=== PATIENT | female | born 1960 | race Caucasian/White ===

== ENCOUNTER 2022-05-14 17:27 | Observation (INO) ==
--- NOTE | 2022-05-14 18:11 | XRay Report ---
SINGLE VIEW CHEST CLINICAL HISTORY: Dyspnea FINDINGS: An AP, portable, upright chest radiograph is compared to study dated 05/10/2022. The heart i s top normal for projection. Chronic interstitial thickening similar to previous. The lungs and pleur al spaces are clear noting bibasilar scarring/atelectasis. No pneumothorax is seen. The skeletal stru ctures are osteopenic. The bony thorax is grossly intact. IMPRESSION: No active disease in the chest. ACT 112: Negative or not required by law. Electronically signed by: Cayetano Espinoza M.D. 05/14/2022 6:10 PM
[2022-05-14 19:51] LABS: Basophils # (auto) 0.08 K/uL (0-0.2); Basophils % (auto) 0.5 %; Eosinophils % (auto) 2.1 %; Hematocrit (blood only) 44.9 % (34.1-44.9); Hemoglobin 14.7 g/dl (12.0-16.0); Immature Granulocytes # (auto) 0.04 K/uL (0.00-0.02); Immature Granulocytes % (auto) 0.3 %; Lymphocytes # (auto) 3.32 K/uL (1.2-3.4); Lymphocytes % (auto) 22.8 %; Mean Corpuscular Hemoglobin 26.7 pg (25.0-34.0); Mean Corpuscular Hgb Conc 32.7 g/dL (32.0-36.0); Mean Corpuscular Volume 81.5 fL (80.0-100.0); Mean Platelet Volume 9.7 fL (9.4-12.3); Monocytes # (auto) 0.72 K/uL (0.24-0.82); Monocytes % (auto) 4.9 %; Neutrophils # (auto) 10.12 K/uL (1.4-6.5); Neutrophils % (auto) 69.4 %; Platelet Count 340 K/uL (130-400); RDW Coefficient of Variation 14.3 % (11.5-14.5); RDW Standard Deviation 41.5 fL (36.4-46.3); Red Blood Count 5.51 M/uL (3.93-5.22); White Blood Count 14.58 K/ul (4.8-10.8)
[2022-05-14 20:44] LABS: Influenza A virus by PCR Negative (Neg); Influenza B virus by PCR Negative (Neg); RSV by PCR Negative (Neg); SARS CoV2 RNA(COVID-19) Ceph NEGATIVE (Negative)
[2022-05-14 20:54] LABS: Alanine Aminotransferase 17 U/L (7-52); Albumin Globulin Ratio 1.3 (0.9-2); Albumin Level 4.3 gm/dl (3.4-5.0); Alkaline Phosphatase 94 U/L (34-104); Anion Gap 8 (3-11); BUN Creatinine Ratio 26.6 (10-20); Bilirubin,Total 0.4 mg/dl (0.2-1.0); Blood Urea Nitrogen 17 mg/dl (6-23); Carbon Dioxide 28 mmol/L (21-32); Chloride 101 mmol/L (98-107); Est GFR (African American) 111.6 ml/min; Est GFR (Non-African American) 96.3 ml/min; Globulin 3.3 gm/dl (2.5-4.0); Glucose 144 mg/dl (70-99(Fasting)); Magnesium 1.8 mg/dl (1.7-2.4); Sodium 137 mmol/L (136-145); Total Protein 7.6 gm/dl (6.0-8.3)
[2022-05-14] MEDS ORDERED: predniSONE 50 MG TAB PO STA (21:32)
[2022-05-14] MEDS ORDERED: LORazepam 1 MG TAB SL STA (21:32)
[2022-05-14] MEDS: ALBUT/IPRATROP 3MG/0.5MG NEB 3 ML VIAL NEB ONE ×2 (21:37→21:45)
[2022-05-14 21:42] LABS: Troponin I High Sensitivity 7.7 pg/ml (0-14)
[2022-05-14] MEDS: IPRATROPIUM BROMIDE NEB SOLN 0.02% 2.5 ML VIAL INH SCH (21:55)
[2022-05-14] MEDS: LEVALBUTEROL 1.25MG/0.5ML NEB INH SCH (21:55)
[2022-05-14 22:07] LABS: Partial Thromboplastin Time 27.1 Seconds (21.0-31.0); Prothrombin Time 10.9 Seconds (9.0-12.0)
--- NOTE | 2022-05-14 22:09 | Emergency Department Note ---
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 Time Seen by Provider: 05/14/22 21:14 History of Present Illness Provider Complaint: shortness of breath and cough Onset (ago): day(s) (5) Severity: severe Consistency/Duration: + progressively worsening Relieved By: + nothing Exacerbated By: + exertion and + coughing Known history of: COPD, asthma and PE (on lovenox) Associated symptoms: + cough, + wheezing, + sputum production and + chest congestion; no chest pain, no orthopnea or no hemoptysis Related Data Home oxygen amount: none Home Medications Medication Instructions Recorded Confirmed Type alprazolam 0.5 mg tablet (Xanax) 0.5 mg PO BID PRN anxiety #15 tabs 05/02/22 05/14/22 Rx buprenorphine 8 mg-naloxone 2 mg 1 film sublingual BID 05/14/22 05/14/22 History sublingual film buspirone 5 mg tablet 7.5 mg PO TID 05/14/22 05/14/22 History enoxaparin 150 mg/mL subcutaneous 150 mg subcut DAILY 05/14/22 05/14/22 History syringe (Lovenox) fluticasone fur. 200 mcg-umeclid 1 inh inhalation DAILY 05/14/22 05/14/22 History 62.5 mcg-vilant 25 mcg inhalat.powder (Trelegy Ellipta) furosemide 20 mg tablet 40 mg PO DAILY 05/14/22 05/14/22 History insulin aspart U-100 100 unit/mL 0 sliding scale dose subcut 05/14/22 05/14/22 History (3 mL) subcutaneous pen (Novolog DIRECTED FlexPen U-100 Insulin aspart) insulin glargine 100 unit/mL (3 40 unit subcut DIRECTED 05/14/22 05/14/22 History mL) subcutaneous pen (Lantus Solostar U-100 Insulin) ipratropium bromide 17 2 puff inhalation DIRECTED 05/14/22 05/14/22 History mcg/actuation HFA aerosol inhaler (Atrovent HFA) levalbuterol tartrate 45 2 inh inhalation Q6H PRN Shortness 05/14/22 05/14/22 History mcg/actuation aerosol inhaler Of Breath (Xopenex HFA) nystatin 100,000 unit/gram topical 1 applic topical BID PRN UNDER 05/14/22 05/14/22 History powder BREASTS NEEDED. nystatin 100,000 unit/mL oral 5 ml PO DIRECTED 05/14/22 05/14/22 History suspension ondansetron HCl 4 mg tablet 4 mg PO Q8H PRN NAUSEA/VOMITING 05/14/22 05/14/22 History quetiapine 200 mg tablet 200 mg PO HS 05/14/22 05/14/22 History valsartan 160 mg tablet 160 mg PO DAILY 05/14/22 05/14/22 History Allergies Allergy/AdvReac Type Severity Reaction Status Date / Time codeine Allergy Severe Anaphylaxis Verified 05/14/22 22:35 Iodinated Contrast Media Allergy Severe Anaphylaxis Verified 05/14/22 22:35 shellfish derived Allergy Severe Anaphylaxis Verified 05/14/22 22:35 tramadol Allergy Intermediate ITCHINESS Verified 05/14/22 22:35 iohexol Allergy Unknown CAN'T Verified 05/14/22 22:35 REMEMBER diphenhydramine AdvReac Severe Anxiety Verified 05/14/22 22:35 [From Benadryl] montelukast [From Singulair] AdvReac Intermediate Anxiety Verified 05/14/22 22:35 promethazine AdvReac Intermediate Anxiety Verified 05/14/22 22:35 Past Med/Surg History Medical History Asthma COPD (chronic obstructive pulmonary disease) Diabetes Multiple myeloma No pertinent family history Pulmonary embolism Tobacco use Surgical History No pertinent past surgical history Social History Smoking Status: Current every day smoker Tobacco Type: Cigarettes Preferred Language: Kinyarwanda Feels Safe at Home: Yes Physical Exam Vital Signs: Vital Signs - 24 hr 05/14/22 17:33 05/14/22 21:13 05/14/22 21:13 Temperature 36.9 C Temperature Source Temporal Artery Sc an Pulse Rate 96 H Pulse Rate [Apical ] 90 Pulse Rate from Sp O2 Sensor Respiratory Rate 19 18 Respiratory Effort / Characteristics Non-Labored Spontaneous Short of Breath Respiratory Depth Normal Shallow Respiratory Patter n Regular Blood Pressure 199/106 H Blood Pressure [Le ft Arm] 198/114 H Blood Pressure Viktoria n 137 Blood Pressure Viktoria n [Left Arm] 142 Pulse Oximetry 96 98 100 Oxygen Delivery Me thod Room Air Room Air Room Air Sepsis Recent Feve r Within 48 Hours No Sepsis New/Unexpla ined Change in Men robyn Status N/A Sepsis Action Take n by Nursing No Action Required 05/14/22 22:17 05/14/22 21:30 05/14/22 22:00 Temperature Temperature Source Pulse Rate 98 H 84 Pulse Rate [Apical ] 93 H Pulse Rate from Sp O2 Sensor 95 H Respiratory Rate 18 24 19 Respiratory Effort / Characteristics Non-Labored Sponta neous Respiratory Depth Normal Respiratory Patter n Blood Pressure Blood Pressure [Le ft Arm] 181/101 H Blood Pressure Viktoria n Blood Pressure Viktoria n [Left Arm] 127 Pulse Oximetry 94 98 Oxygen Delivery Me thod Room Air Sepsis Recent Feve r Within 48 Hours Sepsis New/Unexpla ined Change in Men robyn Status Sepsis Action Take n by Nursing Physical Exam: Physical Exam HENT: Exam performed. -Head: Normocephalic and atraumatic. -Mouth/Throat: The oropharynx is clear and moist. No trismus in the jaw. No dental abscesses or uvula swelling. No oropharyngeal exudate or tonsillar abscesses. EYES: Conjunctivae and EOM are normal. Right eye exhibits no discharge. Left eye exhibits no discharge. No scleral icterus. NECK: Normal range of motion. Neck supple. No JVD present. CV: Normal rate, regular rhythm, normal heart sounds and intact distal pulses. There is no peripheral edema. Palpable radial pulses bue. PULM/CHEST: Expiratory wheezes bilaterally. ABD: The abdomen is soft.There is no tenderness. There is no rebound, no guarding, NEURO: Motor and sensation grossly intact. SKIN: Skin is warm and dry. She is not diaphoretic. PSYCH: She has a normal mood and affect. Behavior is normal. Judgment and thought content normal. Course Course 2113: The patient was evaluated in room B2. A complete history and physical exam was performed Cardiac monitoring: An order was placed for continuous cardiac monitoring. The monitor shows a rate of 90 with sinus rhythm External medical records reviewed this is the patient's third visit to the emergency department in the last 12 days for similar symptoms. 2237: Vital signs stable. Labs and imaging within normal limits, there is a leukocytosis of 14 however the patient has been on steroids. Status post Xopenex and Atrovent treatments patient's breathing has improved but she is still having wheezing. Given that this is the patient's third visit to the emergency department the last month for similar symptoms the patient will be admitted for COPD exacerbation. Administered Medications Ipratropium [place] (Ipratropium [place] Neb Soln 0.02% 2.5 Ml Vial) 0.5 mg INH UD FLETCHER Stop: 06/13/22 21:44 Last Admin: 05/14/22 21:55 Dose: 0.5 mg Documented By: NICHOL Levalbuterol HCl (Levalbuterol 1.25mg/0.5ml Neb) 1.25 mg INH UD FLETCHER Stop: 06/13/22 21:44 Last Admin: 05/14/22 21:55 Dose: 1.25 mg Documented By: NICHOL Discontinued Medications Albuterol (Albut/Ipratrop 3mg/0.5mg Neb 3 Ml Vial) 12 ml NEB ONE ONE; Protocol Stop: 05/14/22 21:33 Last Admin: 05/14/22 21:45 Dose: Not Given Documented By: NICHOL Levalbuterol HCl (Levalbuterol Hcl 0.63 Mg/3 Ml Neb) 0.63 mg NEB NOW STA; Protocol Stop: 05/14/22 22:37 Last Admin: 05/14/22 22:39 Dose: 0.63 mg Documented By: NICHOL Lorazepam (Lorazepam 1 Mg Tab) 1 mg SL NOW STA Stop: 05/14/22 21:33 Last Admin: 05/14/22 21:37 Dose: 1 mg Documented By: NICHOL Prednisone (Prednisone 50 Mg Tab) 50 mg PO NOW STA Stop: 05/14/22 21:33 Last Admin: 05/14/22 21:37 Dose: 50 mg Documented By: NICHOL Medical Decision Making Laboratory Data Attestation: I reviewed the patient's lab results. 05/14/22 19:24 05/14/22 19:24 Lab Results 05/14/22 05/14/22 05/14/22 Range/Units 19:21 19:24 19:24 WBC 14.58 H (4.8-10.8) K/ul RBC 5.51 H (3.93-5.22) M/uL Hgb 14.7 (12.0-16.0) g/dl Hct 44.9 (34.1-44.9) % MCV 81.5 (80.0-100.0) fL MCH 26.7 (25.0-34.0) pg MCHC 32.7 (32.0-36.0) g/dL RDW Std Deviation 41.5 (36.4-46.3) fL RDW Coeff of Malick 14.3 (11.5-14.5) % Plt Count 340 (130-400) K/uL MPV 9.7 (9.4-12.3) fL Immature Gran % (Auto) 0.3 % Neut % (Auto) 69.4 % Lymph % (Auto) 22.8 % Wilkinson % (Auto) 4.9 % Eos % (Auto) 2.1 % Baso % (Auto) 0.5 % Neut # (Auto) 10.12 H (1.4-6.5) K/uL Lymph # (Auto) 3.32 (1.2-3.4) K/uL Wilkinson # (Auto) 0.72 (0.24-0.82) K/uL Eos # (Auto) 0.30 (0-0.50) K/uL Baso # (Auto) 0.08 (0-0.2) K/uL Immature Gran # (Auto) 0.04 H (0.00-0.02) K/uL PT Cancelled INR Cancelled APTT Cancelled PTT Ratio Cancelled Sodium (136-145) mmol/L Potassium Chloride (98-107) mmol/L Carbon Dioxide (21-32) mmol/L Anion Gap (3-11) BUN (6-23) mg/dl Creatinine (0.6-1.2) mg/dl Est Cr Clr Drug Dosing Est GFR ( Amer) ml/min Est GFR (Non-Af Amer) ml/min BUN/Creatinine Ratio (10-20) Glucose (70-99(Fasting)) mg/dl Calcium (8.5-10.1) mg/dl Magnesium (1.7-2.4) mg/dl Total Bilirubin (0.2-1.0) mg/dl AST ALT (7-52) U/L Alkaline Phosphatase (34-104) U/L Troponin I High Sens (0-14) pg/ml Total Protein (6.0-8.3) gm/dl Albumin (3.4-5.0) gm/dl Globulin (2.5-4.0) gm/dl Albumin/Globulin Ratio (0.9-2) SARS-CoV-2 (PCR) NEGATIVE (Negative) Influenza Type A (PCR) Negative (Neg) Influenza Type B (PCR) Negative (Neg) RSV (RT-PCR) Negative (Neg) 05/14/22 05/14/22 05/14/22 Range/Units 19:24 21:45 21:45 WBC (4.8-10.8) K/ul RBC (3.93-5.22) M/uL Hgb (12.0-16.0) g/dl Hct (34.1-44.9) % MCV (80.0-100.0) fL MCH (25.0-34.0) pg MCHC (32.0-36.0) g/dL RDW Std Deviation (36.4-46.3) fL RDW Coeff of Malick (11.5-14.5) % Plt Count (130-400) K/uL MPV (9.4-12.3) fL Immature Gran % (Auto) % Neut % (Auto) % Lymph % (Auto) % Wilkinson % (Auto) % Eos % (Auto) % Baso % (Auto) % Neut # (Auto) (1.4-6.5) K/uL Lymph # (Auto) (1.2-3.4) K/uL Wilkinson # (Auto) (0.24-0.82) K/uL Eos # (Auto) (0-0.50) K/uL Baso # (Auto) (0-0.2) K/uL Immature Gran # (Auto) (0.00-0.02) K/uL PT 10.9 INR 1.0 APTT 27.1 PTT Ratio 1.0 Sodium 137 (136-145) mmol/L Potassium TNP 3.8 Chloride 101 (98-107) mmol/L Carbon Dioxide 28 (21-32) mmol/L Anion Gap 8 (3-11) BUN 17 (6-23) mg/dl Creatinine 0.64 (0.6-1.2) mg/dl Est Cr Clr Drug Dosing Not Reportable Est GFR ( Amer) 111.6 ml/min Est GFR (Non-Af Amer) 96.3 ml/min BUN/Creatinine Ratio 26.6 H (10-20) Glucose 144 H (70-99(Fasting)) mg/dl Calcium 9.0 (8.5-10.1) mg/dl Magnesium 1.8 (1.7-2.4) mg/dl Total Bilirubin 0.4 (0.2-1.0) mg/dl AST TNP 11 L ALT 17 (7-52) U/L Alkaline Phosphatase 94 (34-104) U/L Troponin I High Sens 7.7 (0-14) pg/ml Total Protein 7.6 (6.0-8.3) gm/dl Albumin 4.3 (3.4-5.0) gm/dl Globulin 3.3 (2.5-4.0) gm/dl Albumin/Globulin Ratio 1.3 (0.9-2) SARS-CoV-2 (PCR) (Negative) Influenza Type A (PCR) (Neg) Influenza Type B (PCR) (Neg) RSV (RT-PCR) (Neg) Imaging Data Radiologist's Impression: Chest X-Ray 05/14/22 17:37 SINGLE VIEW CHEST CLINICAL HISTORY: Dyspnea FINDINGS: An AP, portable, upright chest radiograph is compared to study dated 05/10/2022. The heart is top normal for projection. Chronic interstitial thickening similar to previous. The lungs and pleural spaces are clear noting bibasilar scarring/atelectasis. No pneumothorax is seen. The skeletal structures are osteopenic. The bony thorax is grossly intact. IMPRESSION: No active disease in the chest. ACT 112: Negative or not required by law. Electronically signed by: Cayetano Espinoza M.D. 05/14/2022 6:10 PM ECG Data Attestation: I personally reviewed and interpreted this ECG as follows: Interpretation: Sinus rhythm with rate of 84. NV 160 QRS [address] elevation or ST depression. [facility] Narrative 2114: The patient was evaluated in room B2. A complete history and physical exam was performed Cardiac monitoring: An order was placed for continuous cardiac monitoring. The monitor shows a rate of 90 with sinus rhythm External medical records reviewed this is the patient's third visit to the emergency department in the last 12 days for similar symptoms. 2238: Vital signs stable. Labs and imaging within normal limits, there is a leukocytosis of 14 however the patient has been on steroids. Status post Xopenex and Atrovent treatments patient's breathing has improved but she is still having wheezing. Given that this is the patient's third visit to the emergency department the last month for similar symptoms the patient will be admitted for COPD exacerbation. 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 ondansetron HCl [Zofran] 4 mg Tablet 4 mg PO Q8H PRN (Reason: NAUSEA/VOMITING) quetiapine 200 mg tablet 200 mg PO HS enoxaparin [Lovenox] 150 mg/mL Syringe 150 mg SUBCUT DAILY furosemide 20 mg tablet 40 mg PO DAILY nystatin 100,000 unit/gram Powder 1 applic TOPICAL BID PRN (Reason: UNDER BREASTS NEEDED.) valsartan 160 mg tablet 160 mg PO DAILY insulin aspart U-100 [Novolog FlexPen U-100 Insulin] 100 unit/mL (3 mL) insulin pen 0 sliding scale dose SUBCUT DIRECTED levalbuterol tartrate [Xopenex HFA] 45 mcg/actuation Hfa Aerosol Inhaler 2 inh INHALATION Q6H PRN (Reason: Shortness Of Breath) Atrovent HFA 17 mcg/actuation Hfa Aerosol Inhaler 2 puff INHALATION DIRECTED insulin glargine [Lantus Solostar U-100 Insulin] 100 unit/mL (3 mL) insulin pen 40 unit SUBCUT DIRECTED Rx Instructions: CAN SLIDE SCALE IF NOT EATING buprenorphine-naloxone 8-2 mg film 1 film sublingual BID Trelegy Ellipta 200-62.5-25 mcg blister with device 1 inh INHALATION DAILY Referrals Referrals: Celine Romano CRNP [Primary Care Provider] -
[2022-05-14 22:18] LABS: Potassium 3.8 mmol/L (3.5-5.1)
[2022-05-14] MEDS ORDERED: LEVALBUTEROL HCL 0.63 MG/3 ML NEB NEB STA (22:36)
--- NOTE | 2022-05-14 23:26 | History & Physical Report ---
Date of Service May 14, 2022 Assessment & Plan (1) Acute exacerbation of chronic obstructive airways disease: Plan: 62-year-old woman with history of asthma, COPD, type 2 diabetes, and anxiety, who presents to the hospital for the third time this week (05/02/2022, 05/10/2022) with acute shortness of breath. Now stable, admitted for management of COPD exacerbation. COPD exacerbation -COPD managed on Lasix, Atrovent HFA, and Trelegy Ellipta. Patient also has asthma, managed on as needed Xopenex. Patient on 2L oxygen at nighttime. Current everyday smoker. May benefit from reassessment of oxygen requirement. -Suspect symptoms, recurrences secondary to cigarette smoking. -S/P prednisone 50 mg p.o., DuoNeb nebulizer in the ED. -Elevated white count, though unclear if this is of infectious etiology. Patient also received a 10-day course of twice daily doxycycline after the first visit to the ER on 05/02/2022, which she completed. -Deferred starting azithromycin, given recent completion of 10-day course of doxycycline. Procalcitonin ordered to rule out infectious etiology. Will leave to day team to reassess. * Admit to MedSurg with telemetry * Pulmicort in lieu of prednisone, given the effect it has on her blood sugar. * Continue home furosemide, Trelegy Ellipta, Xopenex, and Atrovent * AM labs pending: BMP, CBC, procalcitonin DM2 -Patient takes Lantus 40 units every morning, SSI NovoLog. Has a Dexcom * SQ NovoLog ordered per unit protocol. Goal 100-140. CF = 25. Carb ratio = 10 g/unit * Valsartan 160 mg daily Anxiety -Managed on buspirone 3 times daily quetiapine, which she takes nightly. Patient was on Xanax for 3-week stretch last year but has not used it since. Her frequent hospital visits have her concerned about a new panic attack. -She received Ativan in the ED prior to admission but she feels it did not help. She prefers Xanax. * Seroquel 200 mg nightly * Buspirone 7.5 mg 3 times daily * Xanax 0.5 mg twice daily as needed History of PE * Lovenox 150 mg SQ daily Code: Full code Dispo: Med-Surg telemetry FEN/GI: Heart healthy DVT Prophylaxis: Lovenox 150 mg SQ daily PT/OT: No Consults: (2) Asthma exacerbation in COPD: (3) Anxiety: History of Present Illness Primary Care Provider: MARGARET Cabello Janae is a 62-year-old woman with a history of asthma, COPD, pulmonary embolism (on Lovenox), and type II diabetes. She presents today for progressively worsening shortness of breath and cough. She describes the chest discomfort as "feeling like sandpaper stuck in the wall of [her] chest." Cough is also exacerbated by exertion, with no alleviating factors. ROS + wheeze, increase sputum production, chest congestion. She denies chest pain, orthopnea, or hemoptysis. This is her third admission in the last week for COPD exacerbation. She is not on oxygen at home. In the ED, vitals were notable for BP of 199/106. She was saturating 96% on room air. Labs notable for WBC of 14.58, and glucose of 144. Initial serology (COVID-19, influenza A/B, RSV) negative. She received a dose of DuoNeb, oral prednisone 50 mg, and Xopenex. On admission, she reports headache that started after taking the prednisone. She denies any exposure to pets, dizziness, nausea and vomiting. She insists she is adherent to all of her medications. She is from [place], [place]. She is currently enrolled in the legal dispute with her , and has been only recently staying with her sister here in town. Allergies Allergy/AdvReac Type Severity Reaction Status Date / Time codeine Allergy Severe Anaphylaxis Verified 05/14/22 22:35 Iodinated Contrast Media Allergy Severe Anaphylaxis Verified 05/14/22 22:35 shellfish derived Allergy Severe Anaphylaxis Verified 05/14/22 22:35 tramadol Allergy Intermediate ITCHINESS Verified 05/14/22 22:35 iohexol Allergy Unknown CAN'T Verified 05/14/22 22:35 REMEMBER diphenhydramine AdvReac Severe Anxiety Verified 05/14/22 22:35 [From Benadryl] montelukast [From Singulair] AdvReac Intermediate Anxiety Verified 05/14/22 22:35 promethazine AdvReac Intermediate Anxiety Verified 05/14/22 22:35 Home Medications Medication Instructions Recorded Confirmed Type alprazolam 0.5 mg tablet (Xanax) 0.5 mg PO BID PRN anxiety #15 tabs 05/02/22 05/14/22 Rx buprenorphine 8 mg-naloxone 2 mg 1 film sublingual BID 05/14/22 05/14/22 History sublingual film buspirone 5 mg tablet 7.5 mg PO TID 05/14/22 05/14/22 History enoxaparin 150 mg/mL subcutaneous 150 mg subcut DAILY 05/14/22 05/14/22 History syringe (Lovenox) fluticasone fur. 200 mcg-umeclid 1 inh inhalation DAILY 05/14/22 05/14/22 History 62.5 mcg-vilant 25 mcg inhalat.powder (Trelegy Ellipta) furosemide 20 mg tablet 40 mg PO DAILY 05/14/22 05/14/22 History insulin aspart U-100 100 unit/mL 0 sliding scale dose subcut 05/14/22 05/14/22 History (3 mL) subcutaneous pen (Novolog DIRECTED FlexPen U-100 Insulin aspart) insulin glargine 100 unit/mL (3 40 unit subcut DIRECTED 05/14/22 05/14/22 History mL) subcutaneous pen (Lantus Solostar U-100 Insulin) ipratropium bromide 17 2 puff inhalation DIRECTED 05/14/22 05/14/22 History mcg/actuation HFA aerosol inhaler (Atrovent HFA) levalbuterol tartrate 45 2 inh inhalation Q6H PRN Shortness 05/14/22 05/14/22 History mcg/actuation aerosol inhaler Of Breath (Xopenex HFA) nystatin 100,000 unit/gram topical 1 applic topical BID PRN UNDER 05/14/22 05/14/22 History powder BREASTS NEEDED. nystatin 100,000 unit/mL oral 5 ml PO DIRECTED 05/14/22 05/14/22 History suspension ondansetron HCl 4 mg tablet 4 mg PO Q8H PRN NAUSEA/VOMITING 05/14/22 05/14/22 History quetiapine 200 mg tablet 200 mg PO HS 05/14/22 05/14/22 History valsartan 160 mg tablet 160 mg PO DAILY 05/14/22 05/14/22 History Past Med/Surg History Medical History Asthma COPD (chronic obstructive pulmonary disease) Diabetes Multiple myeloma No pertinent family history Pulmonary embolism Tobacco use Surgical History No pertinent past surgical history Social History Smoking Status: Current every day smoker Tobacco Type: Cigarettes Cigarettes Per Day: 1-2/day; Do You Dip or Chew Tobacco: No; Hx Alcohol Use: No Hx Substance Use: No Preferred Language: Bulgarian Communication Ability: Effective Teacher Tutor Required: No Beliefs That Will Affect Care: None Current Living Situation: Other Current Living Situation Comment: with sister Feels Safe at Home: Yes Safety Concerns: Feels Safe At This Time Assistive Devices: None Review of Systems Review of Systems: All systems reviewed & are unremarkable except as noted in HPI & below Physical Exam Physical Exam: General: No acute distress HEENT: PERRLA. Normal conjunctiva, anicteric sclera. Oropharynx normal. Respiratory: Wheeze heard across upper and lower lung soriano. No crackles, or rales Cardiovascular: Tachycardic. Regular rhythm. No murmurs, gallops, or rubs. No edema. GI: Soft abdomen with normal bowel sounds heard on auscultation. Nontender x4 quadrants Neuro: Alert and oriented x3. Results & Data Results & Data ([facility]) Vital Signs (Past 12 Hours) Vital Signs Temp Pulse Pulse Resp BP BP Pulse Ox 05/14/22 22:00 84 19 05/14/22 21:30 98 H 24 98 05/14/22 22:17 93 H 18 181/101 H 94 05/14/22 21:13 90 18 198/114 H 100 05/14/22 21:13 98 05/14/22 17:33 36.9 C 96 H 19 199/106 H 96 O2 Del Method 05/14/22 22:00 05/14/22 21:30 05/14/22 22:17 Room Air 05/14/22 21:13 Room Air 05/14/22 21:13 Room Air 05/14/22 17:33 Room Air Supervising Physician Co-Signing Physician Notes Attending addendum: I have physically seen this patient, have supervised the medical residents a ctivities, and agree with the H&P unless as otherwise noted. Assessment and Plan: COPD exacerbation- Admit to monitored bed Received the following from the ED: Xopenex/Atrovent nebulizer, Dulucille Sharma razepam 1 mg sublingual, prednisone 50 mg p.o. and Xopenex HFA and Pulmicort Respules 0.5 mg inhaled twice daily Continue Trelegy Ellipta, Xopenex/Atrovent nebulizers Hold any further prednisone due to significantly adversely affecting her blood sugars Diabetes mellitus- Continue Lantus 40 units subcu every morning Placed on Accu-Cheks before meals and at bedtime with NovoLog SSI Hypertension- Continue valsartan-60 mg daily Anxiety- Continue quetiapine, buspirone and Xanax Chronic pain control- Continue Suboxone Remaining orders and notations as noted Resident Activity Tracking Resident Involvement: Resident Care Provided Care Provided: Adult [facility] Medicine
[2022-05-15] MEDS ORDERED: QUEtiapine FUMARATE 200 MG TAB PO STA (00:27)
[2022-05-15] MEDS: ACETAMINOPHEN 325 MG TAB PO PRN ×2 (00:47→09:37)
[2022-05-15] MEDS ORDERED: XOPENEX/ATROVENT 1.25mg/0.5MG NEB COMBO NEB SCH (01:00)
[2022-05-15] MEDS: LEVALBUTEROL 1.25MG/0.5ML NEB INH SCH (01:02)
[2022-05-15] MEDS: IPRATROPIUM BROMIDE NEB SOLN 0.02% 2.5 ML VIAL INH SCH (01:02)
[2022-05-15] MEDS ORDERED: GLUCOSE 10 TAB/TUBE PO PRN (03:21)
[2022-05-15] MEDS ORDERED: ALPRAZolam 0.5 MG TABLET PO PRN (03:21)
[2022-05-15] MEDS ORDERED: IPRATROPIUM BROMIDE HFA INHALER INH PRN (03:21)
[2022-05-15] MEDS ORDERED: GLUCAGON FOR INJ 1 MG VIAL SQ PRN (03:21)
[2022-05-15] MEDS ORDERED: DEXTROSE 50% 50 ML SYRINGE IV PRN (03:21)
[2022-05-15] MEDS ORDERED: CARBOHYDRATES FOR HYPOGLYCEMIA PO PRN (03:21)
[2022-05-15] MEDS ORDERED: GLUCOSE 40% GEL 15 GM TUBE PO PRN (03:21)
[2022-05-15] MEDS ORDERED: LEVALBUTEROL TARTRATE 15 GM HFA.AER.AD INH PRN (03:21)
[2022-05-15] MEDS ORDERED: ONDANSETRON 4 MG OD TAB PO PRN (03:29)
[2022-05-15 04:40] LABS: Basophils # (auto) 0.06 K/uL (0-0.2); Basophils % (auto) 0.4 %; Eosinophils # (auto) 0.01 K/uL (0-0.50); Eosinophils % (auto) 0.1 %; Hematocrit (blood only) 43.7 % (34.1-44.9); Hemoglobin 14.4 g/dl (12.0-16.0); Immature Granulocytes # (auto) 0.07 K/uL (0.00-0.02); Immature Granulocytes % (auto) 0.5 %; Lymphocytes # (auto) 1.62 K/uL (1.2-3.4); Lymphocytes % (auto) 11.3 %; Mean Corpuscular Hemoglobin 26.9 pg (25.0-34.0); Mean Corpuscular Volume 81.5 fL (80.0-100.0); Mean Platelet Volume 9.8 fL (9.4-12.3); Monocytes # (auto) 0.13 K/uL (0.24-0.82); Monocytes % (auto) 0.9 %; Neutrophils # (auto) 12.39 K/uL (1.4-6.5); Neutrophils % (auto) 86.8 %; Platelet Count 322 K/uL (130-400); RDW Coefficient of Variation 14.3 % (11.5-14.5); RDW Standard Deviation 41.6 fL (36.4-46.3); Red Blood Count 5.36 M/uL (3.93-5.22); White Blood Count 14.28 K/ul (4.8-10.8)
[2022-05-15 04:55] LABS: Bilirubin,Total 0.3 mg/dl (0.2-1.0); Calcium 8.4 mg/dl (8.5-10.1); Magnesium 1.7 mg/dl (1.7-2.4); Potassium 4.2 mmol/L (3.5-5.1)
[2022-05-15 05:12] LABS: Albumin Globulin Ratio 1.4 (0.9-2); BUN Creatinine Ratio 27.4 (10-20); Creatinine Clr Calc Pharmacy 99.3 ml/min; Est GFR (African American) 112.8 ml/min; Est GFR (Non-African American) 97.3 ml/min; Globulin 2.9 gm/dl (2.5-4.0); Phosphorus 4.1 mg/dl (2.5-4.9); Total Protein 6.9 gm/dl (6.0-8.3)
[2022-05-15 06:24] LABS: Estimated Average Glucose 220 mg/dl; Hemoglobin A1C 9.3 % (4.5-5.6)
[2022-05-15] MEDS ORDERED: XOPENEX/ATROVENT 0.63mg/0.5MG NEB COMBO NEB PRN (06:52)
[2022-05-15] MEDS ORDERED: LEVALBUTEROL 1.25MG/0.5ML NEB INH PRN (07:01)
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
[2022-05-15] MEDS: IPRATROPIUM BROMIDE NEB SOLN 0.02% 2.5 ML VIAL INH PRN ×3 (07:12→19:52)
[2022-05-15] MEDS ORDERED: LEVALBUTEROL 1.25MG/0.5ML NEB NEB SCH (08:30)
[2022-05-15] MEDS ORDERED: NON-FORMULARY MEDICATION (Fluticasone-Umeclidin-Vilanter [Trelegy Ellipta] 200-62.5-25 mcg INH SCH (09:00)
[2022-05-15] MEDS ORDERED: BUDESONIDE 90 MCG INH INH SCH (09:00)
[2022-05-15] MEDS: BUPRENORPHINE/NALOXONE 8/2 MG TAB SL SCH ×2 (09:37→20:57)
[2022-05-15] MEDS: FUROSEMIDE 40 MG TAB PO SCH (09:37)
[2022-05-15] MEDS: VALSARTAN 80 MG TAB PO SCH (09:40)
[2022-05-15] MEDS: ENOXAPARIN 150 MG/ML SYR SQ SCH (09:44)
[2022-05-15] MEDS: AZITHROMYCIN 500 MG in DEXTROSE 5% 250 ML IV SCH (09:44)
[2022-05-15] MEDS: FLUTICASONE FUROATE 200MCG 14 PUFFS/INHALER INH SCH (09:48)
[2022-05-15] MEDS: UMECLIDINIUM/VILANTEROL 62.5/25MCG 7 PUFFS/INHALER INH SCH (09:48)
[2022-05-15] MEDS: INSULIN ASPART PER UNIT SC SCH ×4 (09:52→20:56)
[2022-05-15] MEDS: TRELEGY SCH (11:48)
[2022-05-15] MEDS: LEVALBUTEROL 1.25MG/0.5ML NEB NEB SCH ×2 (12:26→19:52)
[2022-05-15] MEDS ORDERED: PHARMACY GLYCEMIC MGMT CONSULT PRN (12:26)
[2022-05-15] MEDS ORDERED: LANTUS PER UNIT CHARGE SQ SCH (12:30)
--- NOTE | 2022-05-15 13:39 | Pharmacy Report ---
Pharmacy Glycemic Short Note 2 - Date of Service May 15, 2022 - Glycemic Short BSG Results (Last 24 hours): 05/14/22 05/15/22 05/15/22 19:24 04:10 09:40 Glucose 144 H 303 H* POC Glucose 287 H 05/15/22 11:39 Glucose POC Glucose 262 H OUTPATIENT ANTIDIABETIC REGIMEN: * Lantus 40 units SC daily * Novolog SSI * HbA1c: 9.3% (05/15/22) ASSESSMENT: * 62 yo F admitted secondary to a COPD exacerbation. Pharmacy has been consulted to assist with inpatient glycemic management. Most recent A1c demonstrates poor control of T2DM. Is currently ordered and tolerating a T2DM diet. * Fasting BSG was 287 mg/dL this AM. Lunchtime BSG was 262 mg/dL. * Tightened Novolog. * Added Lantus BID (at reduced dose from home). PLAN FOR INPATIENT GLYCEMIC CONTROL: * Basal insulin * Lantus 15 units SC BID * Bolus insulin * NovoLog per scale ACHS or Q6hrs while NPO * Goal Range: Low 110 mg/dL - High 140 mg/dL * Correction Factor: 20 mg/dL/unit * Nutritional / Prandial insulin per carb ratio of 1 unit per 7 grams CHO consumed
[2022-05-15] MEDS: predniSONE 50 MG TAB PO SCH (17:13)
--- NOTE | 2022-05-15 17:25 | Billing Data ---
Date of Service May 15, 2022 Coding Level of Care Code 85894 SUB INP/OBS CARE MIN
[2022-05-15] MEDS: LANTUS PER UNIT CHARGE SQ SCH (20:57)
[2022-05-15] MEDS: ALPRAZolam 0.5 MG TABLET PO SCH (20:57)
[2022-05-15] MEDS: QUEtiapine FUMARATE 200 MG TAB PO SCH (20:57)
[2022-05-15] MEDS: busPIRone 7.5 MG TAB PO SCH (21:00)
[2022-05-16] MEDS: LEVALBUTEROL 1.25MG/0.5ML NEB NEB SCH ×4 (00:08→20:11)
--- NOTE | 2022-05-16 02:24 | Billing Data ---
Date of Service May 16, 2022 Coding Level of Care Code 25264 INT INP/OBS CARE
[2022-05-16] MEDS: IPRATROPIUM BROMIDE NEB SOLN 0.02% 2.5 ML VIAL INH PRN ×3 (07:14→20:11)
--- NOTE | 2022-05-16 07:20 | Hospitalist Progress Note ---
Date of Service May 16, 2022 Assessment & Plan (1) Acute exacerbation of chronic obstructive airways disease: Plan: 62-year-old woman with history of asthma, COPD, type 2 diabetes, anxiety, and multiple myeloma who presents to the hospital for the third time this week (05/02/2022, 05/10/2022) with acute shortness of breath. Now stable, admitted for management of COPD exacerbation. 05/16 update: Continue current management as below. Patient continues to get bet ter on physical exam. She has less wheezing than she did yesterday. But she still has some respiratory distress, will monitor tomorrow and consider discharge tomorrow. Patient will need resources for when she goes back to [facility]. Case management following. Reassured patient that she is not at risk of PE at this time given that she is on a blood thinner and she has no signs or symptoms of a pulmonary embolism at this time. Reassured her that a D-dimer is not necessary at this time. COPD exacerbation -COPD managed on Lasix, Atrovent HFA, and Trelegy Ellipta. Patient also has asthma, managed on as needed Xopenex. -Patient was initially on 2 L of oxygen when she came into the ED. She does require 2 L of oxygen at night at home. She is no longer requiring oxygen at t his time and on room air. Currently saturating at 93%. -Current everyday smoker. -Suspect symptoms, recurrences secondary to cigarette smoking. -Received 1 dose of prednisone 50 mg on admission. Will start 4-day course. Will end on 05/19. -Elevated white count, though unclear if this is of infectious etiology. Patient also received a 10-day course of twice daily doxycycline after the first visit to the ER on 05/02/2022, which she completed. -Azithromycin not needed at this time given previous antibiotics. -Pulmicort in lieu of prednisone, given the effect it has on her blood sugar. -Continue home furosemide, Trelegy Ellipta, Xopenex, and Atrovent -Pro-Chad negative, COVID flu and RSV negative, DM2 -Patient takes Lantus 40 units every morning, SSI NovoLog. Has a Dexcom -Hemoglobin A1c 9.3. -SQ NovoLog ordered per unit protocol. Goal 100-140. CF = 25. Carb ratio = 10 g/unit -Valsartan 160 mg daily Anxiety -Patient has been taken BuSpar 3 times a day. -Patient used to be on oxycodone up until a year ago. Over the past year she has been on Suboxone -Over the past year she has been lorazepam 0.5 3 times a day. But recently she has been changed to Xanax twice a day. We will continue with Xanax twice a day at this time. Will need outpatient follow-up regarding her anxiety medications. -She received Ativan in the ED prior to admission but she feels it did not help. She prefers Xanax. -Meds: Seroquel 200 mg nightly, Buspirone 7.5 mg 3 times daily, Xanax 0.5 mg twice daily schedule. -Given the patient's recent increased anxiety due to family issues at home, will send referral to case management who will help set up outside services for the patient. Of note patient plans to go back to [facility]. She plans to go back the first week of May. She does not plan to stay in the area here for long period. History of PE -Unclear etiology of PE. Most likely due to multiple myeloma. We will continue with Lovenox 150 mg SQ daily Code: Full code Dispo: Med-Surg telemetry FEN/GI: Heart healthy DVT Prophylaxis: Lovenox 150 mg SQ daily PT/OT: No Consults: (2) Asthma exacerbation in COPD: (3) Anxiety: Admission and Anticipated Discharge Date Admission Date: May 14, 2022 Supervising Physician Co-Signing Physician Notes I personally examined the patient and verified all rosario points of history and exam, discussed case, and agree with decision making with Dr Hargrove Breathing seems to be improving. Sugar somewhat high. Anxiety fairly bad. Extensive discussion on glycemic management. vitals noted nad heent nc at mmm good effort skin no rashes no pallor or icterus COPD exac - failed abx alone. Continue prednisonehopefully home tomorrow on a very short taper. Risk/benefit of steroids for breathing compared to the problems they are causing with her sugar and anxiety seems to be more benefit than risk given that she was sick for quite a while and failing pretty much all other treatment regimens. DM2- escalated management while on steroids, started educated on carb matching as far as basal/bolus insulin dosing at homeheretofore she was doing a sliding scale based on Premeal sugar readings but not the carb content of what she was going to eat. anxiety seems to be fairly severe, but also does appear to be separate from the COPD. Continue med management. Reassurance. PEcmarlys Lovenox Subjective Patient was seen bedside this morning. Patient feels better today in terms of her breathing. She feels that she is less wheezy at this time. She still reports that she is feeling anxious. On review of her past medical history she notes that before she was Ativan 3 times a day, but that made her feel cloudy and had trouble remembering things. She was recently switched to Xanax probably a month ago. Patient reiterates today that she feels safe living with her sister. Patient does ask what her D-dimer was today. When asked about it, patient informed she had previously had 3 pulmonary embolism and that she would routinely get her D-dimer checked. She states that she is allergic to contrast, so she requires V/Q scans rather than being able to have a CTA scan. States that her D-dimer is routinely checked by her PCP. Let patient know that we were not concerned for PE at this time and no D-dimer was ordered during this admission. Review of Systems Review of Systems: All systems reviewed & are unremarkable except as noted in HPI & below Physical Exam Constitutional: WD/WN, vitals as above Respiratory: normal respiratory effort Auscultation: + wheezes; no crackles and no rhonchi Cardiovascular: RRR, no murmur, no edema Gastrointestinal (Abdomen): normal bowel sounds, soft, nontender, no hepatosplenomegaly Musculoskeletal: no cyanosis or clubbing, extremities motor strength 5/5 Skin: no rashes, warm and dry Neurologic: patellar DTR's 2+ bilat, sensation intact Results & Data Results & Data ([facility]) Vital Signs (Past 12 Hours) Vital Signs Temp Pulse Pulse Resp BP Pulse Ox O2 Del Method 05/16/22 07:18 78 20 90 Room Air 05/16/22 07:09 86 05/16/22 03:37 36.4 C L 98 H 20 174/92 H 92 Room Air 05/16/22 00:00 102 H 05/16/22 00:08 93 H 18 90 Room Air 05/15/22 22:57 36.6 C 96 H 18 96/63 L 92 Room Air 05/15/22 19:59 98 H 16 93 Room Air FiO2 05/16/22 07:18 05/16/22 07:09 05/16/22 03:37 05/16/22 00:00 05/16/22 00:08 05/15/22 22:57 05/15/22 19:59 21 Resident Activity Tracking Resident Involvement: Resident Care Provided Care Provided: Adult [facility] Medicine
[2022-05-16 07:39] LABS: Basophils # (auto) 0.08 K/uL (0-0.2); Basophils % (auto) 0.6 %; Eosinophils # (auto) 0.36 K/uL (0-0.50); Eosinophils % (auto) 2.8 %; Hematocrit (blood only) 46.2 % (34.1-44.9); Hemoglobin 14.4 g/dl (12.0-16.0); Immature Granulocytes # (auto) 0.03 K/uL (0.00-0.02); Immature Granulocytes % (auto) 0.2 %; Lymphocytes # (auto) 3.98 K/uL (1.2-3.4); Lymphocytes % (auto) 30.5 %; Mean Corpuscular Hemoglobin 26.4 pg (25.0-34.0); Mean Corpuscular Hgb Conc 31.2 g/dL (32.0-36.0); Mean Corpuscular Volume 84.6 fL (80.0-100.0); Mean Platelet Volume 9.5 fL (9.4-12.3); Monocytes # (auto) 0.73 K/uL (0.24-0.82); Monocytes % (auto) 5.6 %; Neutrophils # (auto) 7.86 K/uL (1.4-6.5); Neutrophils % (auto) 60.3 %; Platelet Count 319 K/uL (130-400); RDW Coefficient of Variation 14.6 % (11.5-14.5); RDW Standard Deviation 44.4 fL (36.4-46.3); Red Blood Count 5.46 M/uL (3.93-5.22); White Blood Count 13.04 K/ul (4.8-10.8)
[2022-05-16] MEDS: predniSONE 50 MG TAB PO SCH (08:02)
[2022-05-16] MEDS: UMECLIDINIUM/VILANTEROL 62.5/25MCG 7 PUFFS/INHALER INH SCH (08:02)
[2022-05-16] MEDS: VALSARTAN 80 MG TAB PO SCH (08:02)
[2022-05-16] MEDS: busPIRone 7.5 MG TAB PO SCH ×3 (08:03→21:33)
[2022-05-16] MEDS: FLUTICASONE FUROATE 200MCG 14 PUFFS/INHALER INH SCH (08:03)
[2022-05-16] MEDS: ENOXAPARIN 150 MG/ML SYR SQ SCH (08:03)
[2022-05-16] MEDS: TRELEGY SCH (08:07)
[2022-05-16] MEDS: ALPRAZolam 0.5 MG TABLET PO SCH (08:13)
[2022-05-16] MEDS: BUPRENORPHINE/NALOXONE 8/2 MG TAB SL SCH ×2 (08:13→21:32)
[2022-05-16 08:21] LABS: Bilirubin,Total 0.5 mg/dl (0.2-1.0); Calcium 8.8 mg/dl (8.5-10.1); Magnesium 2.1 mg/dl (1.7-2.4); Potassium 3.7 mmol/L (3.5-5.1)
[2022-05-16 08:27] LABS: Albumin Globulin Ratio 1.5 (0.9-2); BUN Creatinine Ratio 31.3 (10-20); Creatinine Clr Calc Pharmacy 95.8 ml/min; Est GFR (African American) 111.6 ml/min; Est GFR (Non-African American) 96.3 ml/min; Globulin 2.7 gm/dl (2.5-4.0); Phosphorus 3.9 mg/dl (2.5-4.9); Total Protein 6.7 gm/dl (6.0-8.3)
[2022-05-16] MEDS: AZITHROMYCIN 500 MG in DEXTROSE 5% 250 ML IV SCH (08:28)
[2022-05-16] MEDS: INSULIN ASPART PER UNIT SC SCH ×4 (08:28→21:35)
[2022-05-16] MEDS: LANTUS PER UNIT CHARGE SQ SCH ×2 (08:28→21:36)
[2022-05-16] MEDS: FUROSEMIDE 40 MG TAB PO SCH (08:42)
[2022-05-16] MEDS ORDERED: ENOXAPARIN INJ 40 MG/0.4 ML SYR SQ SCH (09:00)
--- NOTE | 2022-05-16 10:09 | Electrocardiogram Report ---
Test Reason : Blood Pressure : / mmHG Vent. Rate : 084 BPM Atrial Rate : 084 BPM P-R Int : 162 ms QRS Dur : 062 ms QT Int : 356 ms P-R-T Axes : 043 -05 052 degrees QTc Int : 420 ms Poor data quality, interpretation may be adversely affected Normal sinus rhythm Septal infarct (cited on or before 10-MAY-2022) Inferior infarct (cited on or before 10-MAY-2022) Abnormal ECG When compared with ECG of 10-MAY-2022 11:33, Questionable change in initial forces of Anterior leads Nonspecific T wave abnormality no longer evident in Inferior leads Confirmed by Roel Willams ([id number]) on 05/16/2022 10:08:52 AM Referred By: REFERRED SELF Confirmed By:Roel Willams
[2022-05-16] MEDS ORDERED: INSULIN ASPART PER UNIT SC SCH (10:15)
--- NOTE | 2022-05-16 14:22 | Pharmacy Report ---
Pharmacy Glycemic Short Note 2 - Date of Service May 16, 2022 - Glycemic Short BSG Results (Last 24 hours): 05/15/22 05/15/22 05/16/22 16:16 20:04 06:57 Glucose 148 H POC Glucose 129 H 145 H 05/16/22 05/16/22 05/16/22 07:36 09:59 10:00 Glucose POC Glucose 164 H 437 H* 396 H* 05/16/22 05/16/22 05/16/22 10:01 11:23 11:24 Glucose POC Glucose 410 H* 382 H* 356 H* OUTPATIENT ANTIDIABETIC REGIMEN: * Lantus 40 units SC daily * Novolog SSI * HbA1c: 9.3% (05/15/22) ASSESSMENT: 05/16: * Patient received total of 64 units of insulin yesterday; 39 units basal + 25 units bolus * Lantus dose was increased to 24 unit BID to cover for the Prednisone 50 mg daily dose. * Spoke to nurse this morning. Patient tends to eat more after she says she's done with her meal tray and after the Novolog dose is given. Her BSG trended up to 400 mg/dl this morning because of extra food intake. Asked nurse to cover this with extra 5 units this morning. * Pre-lunch BSG elevated at 356 mg/dl since the late dose of Novolog 5 units given at ~10:30 am had not taken effect yet. * Expect BSG to trend down by dinner time like it did yesterday. * Post-prandial BSGs at dinner and HS were at goal yesterday. Continued novolog parameters the same today. 05/15/22: * 62 yo F admitted secondary to a COPD exacerbation. Pharmacy has been consulted to assist with inpatient glycemic management. Most recent A1c demonstrates poor control of T2DM. Is currently ordered and tolerating a T2DM diet. * Fasting BSG was 287 mg/dL this AM. Lunchtime BSG was 262 mg/dL. * Tightened Novolog. * Added Lantus BID (at reduced dose from home). PLAN FOR INPATIENT GLYCEMIC CONTROL: * Basal insulin * Lantus 24 units SC BID * Bolus insulin * NovoLog per scale ACHS or Q6hrs while NPO * Goal Range: Low 110 mg/dL - High 140 mg/dL * Correction Factor: 20 mg/dL/unit * Nutritional / Prandial insulin per carb ratio of 1 unit per 7 grams CHO consumed
[2022-05-16] MEDS ORDERED: ACETAMINOPHEN 500 MG TAB PO PRN (15:05)
[2022-05-16] MEDS ORDERED: Nursing to Pharmacy Communication SCH (15:15)
[2022-05-16] MEDS: ALPRAZolam 0.25 MG TABLET PO PRN ×2 (15:47→21:33)
--- NOTE | 2022-05-16 17:30 | Billing Data ---
Date of Service May 16, 2022 Coding Level of Care Code 87386 SUB INP/OBS CARE MIN
[2022-05-16] MEDS: QUEtiapine FUMARATE 200 MG TAB PO SCH (21:33)
[2022-05-17] MEDS: IPRATROPIUM BROMIDE NEB SOLN 0.02% 2.5 ML VIAL INH PRN ×2 (00:39→13:22)
[2022-05-17] MEDS: LEVALBUTEROL 1.25MG/0.5ML NEB NEB SCH ×3 (00:39→13:22)
[2022-05-17 06:37] LABS: Basophils # (auto) 0.07 K/uL (0-0.2); Basophils % (auto) 0.7 %; Eosinophils # (auto) 0.42 K/uL (0-0.50); Eosinophils % (auto) 4.3 %; Hemoglobin 14.1 g/dl (12.0-16.0); Immature Granulocytes # (auto) 0.04 K/uL (0.00-0.02); Immature Granulocytes % (auto) 0.4 %; Lymphocytes # (auto) 3.37 K/uL (1.2-3.4); Lymphocytes % (auto) 34.8 %; Mean Corpuscular Hemoglobin 26.4 pg (25.0-34.0); Mean Corpuscular Volume 82.4 fL (80.0-100.0); Mean Platelet Volume 9.6 fL (9.4-12.3); Monocytes # (auto) 0.61 K/uL (0.24-0.82); Monocytes % (auto) 6.3 %; Neutrophils # (auto) 5.17 K/uL (1.4-6.5); Neutrophils % (auto) 53.5 %; Platelet Count 305 K/uL (130-400); RDW Coefficient of Variation 14.6 % (11.5-14.5); RDW Standard Deviation 43.3 fL (36.4-46.3); Red Blood Count 5.34 M/uL (3.93-5.22); White Blood Count 9.68 K/ul (4.8-10.8)
[2022-05-17 07:11] LABS: Albumin Level 3.6 gm/dl (3.4-5.0); Bilirubin,Total 0.3 mg/dl (0.2-1.0); Calcium 8.5 mg/dl (8.5-10.1); Magnesium 2.1 mg/dl (1.7-2.4); Potassium 3.5 mmol/L (3.5-5.1)
[2022-05-17 07:17] LABS: Albumin Globulin Ratio 1.4 (0.9-2); BUN Creatinine Ratio 35.3 (10-20); Creatinine Clr Calc Pharmacy 92.2 ml/min; Est GFR (African American) 109.4 ml/min; Est GFR (Non-African American) 94.4 ml/min; Globulin 2.6 gm/dl (2.5-4.0); Phosphorus 4.2 mg/dl (2.5-4.9); Total Protein 6.2 gm/dl (6.0-8.3)
--- NOTE | 2022-05-17 07:17 | Hospitalist Progress Note ---
Date of Service May 17, 2022 Assessment & Plan (1) Acute exacerbation of chronic obstructive airways disease: Plan: 62-year-old woman with history of asthma, COPD, type 2 diabetes, anxiety, and multiple myeloma who presents to the hospital for the third time this week (05/02/2022, 05/10/2022) with acute shortness of breath. Now stable, admitted for management of COPD exacerbation. COPD exacerbation -COPD managed on Lasix, Atrovent HFA, and Trelegy Ellipta. Patient also has asthma, managed on as needed Xopenex. This is her home regimen. -Patient was initially on 2 L of oxygen when she came into the ED. She does require 2 L of oxygen at night at home. She is no longer requiring oxygen at this time and on room air. -Current everyday smoker. -Suspect symptoms, recurrences secondary to cigarette smoking. -Received 1 dose of prednisone 50 mg on admission. Will start 4-day course. Will end on 05/19. -Elevated white count, though unclear if this is of infectious etiology. Patient also received a 10-day course of twice daily doxycycline after the first visit to the ER on 05/02/2022, which she completed. -Azithromycin not needed at this time given previous antibiotics. -Pulmicort in lieu of prednisone, given the effect it has on her blood sugar. -Continue home furosemide, Trelegy Ellipta, Xopenex, and Atrovent -Pro-Chad negative, COVID flu and RSV negative, DM2 -Patient takes Lantus 40 units every morning, SSI NovoLog. Has a Dexcom -Hemoglobin A1c 9.3. -SQ NovoLog ordered per unit protocol. Goal 100-140. CF = 25. Carb ratio = 10 g/unit HTN -Valsartan 160 mg daily Anxiety -Patient has been taken BuSpar 3 times a day. -Patient used to be on oxycodone up until a year ago. Over the past year she has been on Suboxone -Over the past year she has been lorazepam 0.5 3 times a day. But recently she has been changed to Xanax twice a day. We will continue with Xanax twice a day at this time. Will need outpatient follow-up regarding her anxiety medications. -She received Ativan in the ED prior to admission but she feels it did not help. She prefers Xanax. -Meds: Seroquel 200 mg nightly, Buspirone 7.5 mg 3 times daily, Xanax 0.5 mg twice daily schedule. -Given the patient's recent increased anxiety due to family issues at home, will send referral to case management who will help set up outside services for the patient. Of note patient plans to go back to [facility] [address] [facility]. She plans to go back the first week of May. She does not plan to stay in the area here for long period. History of PE -Unclear etiology of PE. Most likely due to multiple myeloma. We will continue with Lovenox 150 mg SQ daily Code: Full code Dispo: Med-Surg telemetry FEN/GI: Heart healthy DVT Prophylaxis: Lovenox 150 mg SQ daily PT/OT: No Consults: (2) Asthma exacerbation in COPD: (3) Anxiety: Admission and Anticipated Discharge Date Admission Date: May 14, 2022 Results & Data Results & Data ([facility]) Vital Signs (Past 12 Hours) Vital Signs Temp Pulse Pulse Resp BP BP Pulse Ox 05/17/22 01:17 93 H 05/17/22 00:39 102 H 18 91 05/17/22 00:30 05/16/22 23:19 36.4 C L 107 H 18 112/74 93 05/16/22 20:13 63 18 99 05/16/22 19:40 36.4 C L 94 H 18 143/95 H 93 O2 Del Method 05/17/22 01:17 05/17/22 00:39 Room Air 05/17/22 00:30 Room Air 05/16/22 23:19 Room Air 05/16/22 20:13 Room Air 05/16/22 19:40 Room Air
[2022-05-17] MEDS: FLUTICASONE FUROATE 200MCG 14 PUFFS/INHALER INH SCH (07:31)
[2022-05-17] MEDS: busPIRone 7.5 MG TAB PO SCH ×2 (07:31→13:37)
[2022-05-17] MEDS: FUROSEMIDE 40 MG TAB PO SCH (07:32)
[2022-05-17] MEDS: UMECLIDINIUM/VILANTEROL 62.5/25MCG 7 PUFFS/INHALER INH SCH (07:32)
[2022-05-17] MEDS: VALSARTAN 80 MG TAB PO SCH (07:32)
[2022-05-17] MEDS: ENOXAPARIN 150 MG/ML SYR SQ SCH (07:33)
[2022-05-17] MEDS: TRELEGY SCH (07:33)
[2022-05-17] MEDS: ALPRAZolam 0.25 MG TABLET PO PRN (07:41)
[2022-05-17] MEDS: LANTUS PER UNIT CHARGE SQ SCH (07:41)
[2022-05-17] MEDS: BUPRENORPHINE/NALOXONE 8/2 MG TAB SL SCH (07:41)
[2022-05-17] MEDS: INSULIN ASPART PER UNIT SC SCH ×2 (07:41→12:24)
[2022-05-17] MEDS ORDERED: LANTUS PER UNIT CHARGE SQ ONE (08:15)
[2022-05-17] MEDS ORDERED: LANTUS PER UNIT CHARGE SQ SCH ×2 (09:00→21:00)
[2022-05-17] MEDS ORDERED: predniSONE 50 MG TAB PO SCH (09:00)
[2022-05-17] MEDS: AZITHROMYCIN 500 MG in DEXTROSE 5% 250 ML IV SCH (09:04)
[2022-05-17] MEDS ORDERED: AZITHROMYCIN 250 MG TAB PO ONE (11:15)
--- NOTE | 2022-05-17 13:03 | Pharmacy Report ---
Pharmacy Glycemic Short Note 2 - Date of Service May 17, 2022 - Glycemic Short BSG Results (Last 24 hours): 05/16/22 05/16/22 05/17/22 16:31 20:32 05:28 Glucose 164 H POC Glucose 136 H 214 H 05/17/22 05/17/22 07:15 11:28 Glucose POC Glucose 149 H 282 H OUTPATIENT ANTIDIABETIC REGIMEN: * Lantus 40 units SC daily * Novolog SSI * HbA1c: 9.3% (05/15/22) ASSESSMENT: 05/17: * BSGs labile yesterday, ranging 135-356 mg/dL likely related to hyperglycemic effects of prednisone * Received 80 units of insulin (48 units of basal and 32 units of bolus) * Will give full daily basal dose this morning to be given with prednisone rather than split BID * Will also tighten carb ratio today, loosen correction factor given correction seen at lunch -> dinner over past couple of days * Azithromycin changed from IV to PO today, continues on prednisone 50 mg PO daily 05/16: * Patient received total of 64 units of insulin yesterday; 39 units basal + 25 units bolus * Lantus dose was increased to 24 unit BID to cover for the Prednisone 50 mg daily dose. * Spoke to nurse this morning. Patient tends to eat more after she says she's done with her meal tray and after the Novolog dose is given. Her BSG trended up to 400 mg/dl this morning because of extra food intake. Asked nurse to cover this with extra 5 units this morning. * Pre-lunch BSG elevated at 356 mg/dl since the late dose of Novolog 5 units given at ~10:30 am had not taken effect yet. * Expect BSG to trend down by dinner time like it did yesterday. * Post-prandial BSGs at dinner and HS were at goal yesterday. Continued novolog parameters the same today. 05/15/22: * 62 yo F admitted secondary to a COPD exacerbation. Pharmacy has been consulted to assist with inpatient glycemic management. Most recent A1c demonstrates poor control of T2DM. Is currently ordered and tolerating a T2DM diet. * Fasting BSG was 287 mg/dL this AM. Lunchtime BSG was 262 mg/dL. * Tightened Novolog. * Added Lantus BID (at reduced dose from home). PLAN FOR INPATIENT GLYCEMIC CONTROL: * Basal insulin * Lantus 44 units SC this morning * Lantus 0-10 units SC HS (see EHR for details) * Bolus insulin * NovoLog per scale ACHS or Q6hrs while NPO * Goal Range: Low 110 mg/dL - High 140 mg/dL * Correction Factor: 25 mg/dL/unit * Nutritional / Prandial insulin per carb ratio of 1 unit per 6 grams CHO consumed
--- NOTE | 2022-05-17 14:02 | Discharge Summary ---
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 home Resident Activity Tracking Resident Involvement: Resident Care Provided Care Provided: Adult Hospital Medicine
--- NOTE | 2022-05-17 18:29 | Billing Data ---
Date of Service May 17, 2022 Coding Level of Care Code HOSP INP/OBS DISCH >30 MIN
[2022-05-18] MEDS ORDERED: AZITHROMYCIN 250 MG TAB PO SCH (09:00)
== END 2022-05-17 14:45 | disposition home or self-care (01) ==
LOC: ED 17:27 → EDINP 23:28 → INTOOBSV 23:28 → SUATTDRO 23:28 → 2N 05-15 03:21
DX: Z91.013 Allergy to seafood; F17.210 Nicotine dependence, cigarettes, uncomplicated; Z86.711 Personal history of pulmonary embolism; Z79.899 Other long term (current) drug therapy; E11.65 Type 2 diabetes mellitus with hyperglycemia; Z91.041 Radiographic dye allergy status; J44.1 Chronic obstructive pulmonary disease with (acute) exacerbation; Z79.4 Long term (current) use of insulin; Z88.5 Allergy status to narcotic agent; Z88.8 Allergy status to other drugs, medicaments and biological substances

== ENCOUNTER 2022-06-12 15:07 | Observation (INO) ==
--- NOTE | 2022-06-12 16:04 | XRay Report ---
SINGLE VIEW CHEST CLINICAL HISTORY: Dyspnea FINDINGS: An AP, portable, upright chest radiograph is compared to study dated 06/07/2022. The examina tion is degraded by portable technique and patient rotation. The heart is top normal for projection. Chronic interstitial thickening similar to previous. No airspace consolidation or large pleural effu aba is identified. Scarring/atelectasis is seen at the lung bases. No pneumothorax is seen. The skel etal structures are osteopenic. Focal expansion of the right 4th rib is unchanged. IMPRESSION: No acute cardiopulmonary abnormality is identified. ACT 112: Negative or not required by law. Electronically signed by: Cayetano Espinoza M.D. 06/12/2022 4:03 PM
[2022-06-12 17:01] LABS: Basophils # (auto) 0.08 K/uL (0-0.2); Basophils % (auto) 0.6 %; Eosinophils # (auto) 0.31 K/uL (0-0.50); Eosinophils % (auto) 2.3 %; Hematocrit (blood only) 44.1 % (37.0-47.0); Hemoglobin 14.4 g/dl (12.0-16.0); Immature Granulocytes # (auto) 0.04 K/uL (0.01-0.20); Immature Granulocytes % (auto) 0.3 %; Lymphocytes # (auto) 3.23 K/uL (1.2-3.4); Lymphocytes % (auto) 24.2 %; Mean Corpuscular Hemoglobin 26.7 pg (25.0-34.0); Mean Corpuscular Hgb Conc 32.7 g/dL (32.0-36.0); Mean Corpuscular Volume 81.7 fL (80.0-100.0); Mean Platelet Volume 9.6 fL (9.4-12.4); Monocytes # (auto) 0.47 K/uL (0.11-0.59); Monocytes % (auto) 3.5 %; Neutrophils # (auto) 9.22 K/uL (1.40-6.50); Neutrophils % (auto) 69.1 %; Platelet Count 320 K/uL (130-400); RDW Coefficient of Variation 14.4 % (11.5-14.5); RDW Standard Deviation 42.4 fL (36.4-46.3); White Blood Count 13.35 K/ul (4.8-10.8)
[2022-06-12 17:32] LABS: Partial Thromboplastin Time 26.4 Seconds (21.0-31.0); Prothrombin Time 10.9 Seconds (9.0-12.0)
[2022-06-12 17:41] LABS: Alanine Aminotransferase 13 U/L (7-52); Albumin Globulin Ratio 1.5 (0.9-2); Albumin Level 4.4 gm/dl (3.4-5.0); Alkaline Phosphatase 93 U/L (34-104); Anion Gap 7 (3-11); Aspartate Aminotransferase 11 U/L (13-39); Bilirubin,Total 0.3 mg/dl (0.2-1.0); Blood Urea Nitrogen 16 mg/dl (6-23); Calcium 9.5 mg/dl (8.5-10.1); Carbon Dioxide 28 mmol/L (21-32); Chloride 102 mmol/L (98-107); Est GFR (African American) 86.9 ml/min; Globulin 2.9 gm/dl (2.5-4.0); Glucose 160 mg/dl (70-99(Fasting)); Magnesium 1.8 mg/dl (1.7-2.4); Potassium 3.9 mmol/L (3.5-5.1); Sodium 137 mmol/L (136-145); Total Protein 7.3 gm/dl (6.0-8.3)
[2022-06-12] MEDS ORDERED: LEVALBUTEROL 1.25MG/0.5ML NEB INH SCH ×2 (18:45→19:00)
[2022-06-12] MEDS ORDERED: methylPREDNISolone 125 MG/2 ML VIAL IV STA (18:45)
[2022-06-12] MEDS ORDERED: ALPRAZolam 0.25 MG TABLET PO STA (18:45)
[2022-06-12] MEDS ORDERED: IPRATROPIUM BROMIDE NEB SOLN 0.02% 2.5 ML VIAL INH SCH ×2 (18:45→19:00)
--- NOTE | 2022-06-12 18:57 | Emergency Department Note ---
History of Present Illness General Chief Complaint: Shortness of Breath/Dyspnea Stated Complaint: CRACKLING IN LUNGS, SOB, FLUID RETENTION Time Seen by Provider: 06/12/22 18:27 History of Present Illness Provider Complaint: shortness of breath Onset (ago): day(s) (1) Severity: moderate Maximum Pain Intensity: 7 Relieved By: + nothing Exacerbated By: + exertion, + coughing and + stress Context: no recent illness or no choking/aspiration Known history of: COPD, asthma and PE Associated symptoms: + cough, + wheezing, + sputum production and + chest congestion; no chest pain, no pain with inspiration, no fever, no orthopnea, no hemoptysis, no syncope or no abdominal pain Related Data Home oxygen amount: none Home Medications Medication Instructions Recorded Confirmed Type buprenorphine 8 mg-naloxone 2 mg 1 film sublingual BID 05/14/22 06/12/22 History sublingual film buspirone 5 mg tablet 7.5 mg PO TID 05/14/22 06/12/22 History enoxaparin 150 mg/mL subcutaneous 150 mg subcut DAILY 05/14/22 06/12/22 History syringe (Lovenox) fluticasone fur. 200 mcg-umeclid 1 inh inhalation DAILY 05/14/22 06/12/22 History 62.5 mcg-vilant 25 mcg inhalat.powder (Trelegy Ellipta) furosemide 20 mg tablet 40 mg PO DAILY 05/14/22 06/12/22 History ipratropium bromide 17 2 puff inhalation DIRECTED 05/14/22 06/12/22 History mcg/actuation HFA aerosol inhaler (Atrovent HFA) levalbuterol tartrate 45 2 inh inhalation Q6H PRN Shortness 05/14/22 06/12/22 History mcg/actuation aerosol inhaler Of Breath (Xopenex HFA) nystatin 100,000 unit/gram topical 1 applic topical BID PRN UNDER 05/14/22 06/12/22 History powder BREASTS NEEDED. nystatin 100,000 unit/mL oral 5 ml PO DIRECTED 05/14/22 06/12/22 History suspension ondansetron HCl 4 mg tablet 4 mg PO Q8H PRN NAUSEA/VOMITING 05/14/22 06/12/22 History quetiapine 200 mg tablet 200 mg PO HS 05/14/22 06/12/22 History valsartan 160 mg tablet 160 mg PO DAILY 05/14/22 06/12/22 History alprazolam 0.25 mg tablet (Xanax) 0.25 mg PO BID PRN anxiety #10 tabs 06/07/22 06/12/22 Rx doxycycline hyclate 100 mg capsule 100 mg PO BID 7 days #14 caps 06/07/22 06/12/22 Rx prednisone 10 mg tablet See Rx Instructions .Route 06/07/22 06/12/22 Rx .COMPLEX #20 tabs Allergies Allergy/AdvReac Type Severity Reaction Status Date / Time codeine Allergy Severe Anaphylaxis Verified 06/12/22 19:07 Iodinated Contrast Media Allergy Severe Anaphylaxis Verified 06/12/22 19:07 shellfish derived Allergy Severe Anaphylaxis Verified 06/12/22 19:07 tramadol Allergy Intermediate ITCHINESS Verified 06/12/22 19:07 iohexol Allergy Unknown CAN'T Verified 06/12/22 19:07 REMEMBER diphenhydramine AdvReac Severe Anxiety Verified 06/12/22 19:07 [From Benadryl] montelukast [From Singulair] AdvReac Intermediate Anxiety Verified 06/12/22 19:07 promethazine AdvReac Intermediate Anxiety Verified 06/12/22 19:07 Past Med/Surg History Medical History Asthma Asthma exacerbation in COPD COPD (chronic obstructive pulmonary disease) Diabetes Multiple myeloma No pertinent family history Pulmonary embolism Tobacco use Surgical History No pertinent past surgical history Social History Smoking Status: Current every day smoker Tobacco Type: Cigarettes Cigarettes Per Day: 1-2/day; Hx Alcohol Use: No Hx Substance Use: No Preferred Language: Greenlandic Communication Ability: Effective Fiber Optic Assembler Required: No Beliefs That Will Affect Care: None Current Living Situation: Other Current Living Situation Comment: Patient is staying with sister currently Other Information That Helps Us Care for You: No Feels Safe at Home: Yes Safety Concerns: Feels Safe At This Time Assistive Devices: None Physical Exam Vital Signs: Vital Signs - 24 hr 06/12/22 15:35 06/12/22 18:33 06/12/22 19:05 Temperature 36.6 C Temperature Source Temporal Artery Sc an Pulse Rate 101 H Pulse Rate [Apical ] 98 H Pulse Rhythm Respiratory Rate 22 17 Respiratory Effort / Characteristics Non-Labored Sponta neous Non-Labored Sponta neous Respiratory Depth Normal Normal Respiratory Patter n Regular Blood Pressure 153/90 H Blood Pressure [Ri ght Arm] 165/102 H Blood Pressure Viktoria n 111 Blood Pressure Viktoria n [Right Arm] 123 Pulse Oximetry 96 95 Oxygen Delivery Me thod Room Air Room Air Room Air Sepsis Recent Feve r Within 48 Hours No Sepsis New/Unexpla ined Change in Men robyn Status No Sepsis Action Take n by Nursing No Action Required 06/12/22 19:05 06/12/22 19:05 06/12/22 19:05 Temperature Temperature Source Pulse Rate 87 Pulse Rate [Apical ] Pulse Rhythm Regular Respiratory Rate 19 16 Respiratory Effort / Characteristics Short of Breath Respiratory Depth Respiratory Patter n Blood Pressure Blood Pressure [Ri ght Arm] Blood Pressure Viktoria n Blood Pressure Viktoria n [Right Arm] Pulse Oximetry 95 95 95 Oxygen Delivery Me thod Room Air Room Air Room Air Sepsis Recent Feve r Within 48 Hours Sepsis New/Unexpla ined Change in Men robyn Status Sepsis Action Take n by Nursing 06/12/22 19:13 Temperature Temperature Source Pulse Rate 97 H Pulse Rate [Apical ] Pulse Rhythm Respiratory Rate Respiratory Effort / Characteristics Respiratory Depth Respiratory Patter n Blood Pressure Blood Pressure [Ri ght Arm] Blood Pressure Viktoria n Blood Pressure Viktoria n [Right Arm] Pulse Oximetry Oxygen Delivery Me thod Sepsis Recent Feve r Within 48 Hours Sepsis New/Unexpla ined Change in Men robyn Status Sepsis Action Take n by Nursing Physical Exam: Physical Exam GENERAL: He is oriented to person, place, and time. He appears well-developed and well-nourished. HENT: Exam performed. - Head: Normocephalic and atraumatic. EYES: Conjunctivae and EOM are normal. Right eye exhibits no discharge. Left eye exhibits no discharge. No scleral icterus. NECK: Normal range of motion. Neck supple. No JVD present. CV: Normal rate, regular rhythm, normal heart sounds and intact distal pulses. There is no peripheral edema. Palpable radial pulses bue. PULM/CHEST: Diffuse expiratory wheezes bilaterally. NEURO: Motor and sensation grossly intact. SKIN: Skin is warm and dry. He is not diaphoretic. PSYCH: He has a normal mood and affect. Behavior is normal. Judgment and thought content normal. Course Course 1826: The patient was evaluated in room B6. A complete history and physical exam was performed Cardiac monitoring: An order was placed for continuous cardiac monitoring. The monitor shows a rate of 90 with sinus rhythm interpreted by me External medical records reviewed. This is the patient's sixth emergency department visit in the last 6 weeks for similar symptoms. Patient states she is originally from the [facility]. She states she was supposed to move back there but then when she went there she stated that her living situation was in a very precarious and dangerous living conditions so she came back up here. Patient states she was not able to see any of her doctors who she knows in the [facility]. Patient does not have a [facility] physician associate here or floor waxer here and states she is here and definitely. We will give the patient breathing treatments steroids and Xanax and then reevaluate. 2000: Vital signs stable. Status post breathing treatments and steroids patient still having a lot of wheezing. Labs show leukocytosis of 13.35 however the patient has been on steroids recently. COVID-negative. Chest x-ray negative. Given the patient will be in this area for an undetermined amount of time since her living situation [facility] cannot be secured yet, the patient will be admitted to the hospital for continuous DuoNeb treatments and pulmonology evaluation is not clear when she is getting go back to her home area to be evaluated by her floor waxer. Discussed case with the [facility] hospitalist team who will evaluate the patient for admission. Administered Medications Acetaminophen (Acetaminophen 325 Mg Tab) 650 mg PO Q4H PRN PRN Reason: pain/fever Stop: 07/12/22 20:22 Last Admin: 06/12/22 23:12 Dose: 650 mg Documented By: RAFIQ Buprenorphine/Naloxone (Buprenorphine/Naloxone 8/2 Mg Tab) 1 tab SL BID [facility] Stop: 07/12/22 21:46 Last Admin: 06/12/22 22:23 Dose: Not Given Documented By: RAFIQ Buspirone HCl (Buspirone 7.5 Mg Tab) 7.5 mg PO TID [facility] Stop: 07/12/22 21:46 Last Admin: 06/12/22 22:59 Dose: 7.5 mg Documented By: NVE Guaifenesin (Guaifenesin 600 Mg Tabcr) 1,200 mg PO BID [facility] Stop: 07/12/22 21:46 Last Admin: 06/12/22 22:24 Dose: Not Given Documented By: RAFIQ Methylprednisolone 50 mg/ (Syringe) 0.8 mls @ 1.5 mls/min IV Q6H [facility] Stop: 07/12/22 22:14 Last Admin: 06/12/22 23:04 Dose: Not Given Documented By: RAFIQ Insulin Aspart (Insulin Aspart Per Unit) 0 units SC ACHS [facility] Stop: 07/12/22 21:46 Last Admin: 06/12/22 23:00 Dose: 7 units Documented By: RAFIQ Co-signed By: MARKUS Levalbuterol HCl (Levalbuterol Hcl 0.63 Mg/3 Ml Neb) 0.63 mg NEB Q6R [facility]; Protocol Stop: 07/13/22 00:59 Last Admin: 06/13/22 00:12 Dose: 0.63 mg Documented By: ALANNAH Quetiapine Fumarate (Quetiapine Fumarate 200 Mg Tab) 200 mg PO [facility] Stop: 07/12/22 21:46 Last Admin: 06/12/22 22:59 Dose: 200 mg Documented By: RAFIQ Discontinued Medications Alprazolam (Alprazolam 0.25 Mg Tablet) 0.25 mg PO NOW STA Stop: 06/12/22 18:46 Last Admin: 06/12/22 19:32 Dose: 0.25 mg Documented By: NICHOL Azithromycin (Azithromycin 250 Mg Tab) 500 mg PO NOW ONE Stop: 06/12/22 22:01 Last Admin: 06/12/22 22:58 Dose: 500 mg Documented By: RAFIQ Enoxaparin Sodium (Enoxaparin 0.5 Mg/Kg) 75 mg SQ BID [facility] Stop: 07/12/22 20:59 Last Admin: 06/12/22 22:23 Dose: Not Given Documented By: RAFIQ Furosemide (Furosemide 40 Mg/4 Ml Vial) 40 mg IV ONE ONE Stop: 06/12/22 21:06 Last Admin: 06/12/22 22:23 Dose: Not Given Documented By: RAFIQ Furosemide (Furosemide Inj 20 Mg/2 Ml Vial) 20 mg IV ONE ONE Stop: 06/12/22 21:10 Last Admin: 06/12/22 23:08 Dose: 20 mg Documented By: RAFIQ Ipratropium [place] (Ipratropium [place] Neb Soln 0.02% 2.5 Ml Vial) 0.5 mg INH UD [facility] Stop: 07/12/22 18:44 Last Admin: 06/12/22 19:08 Dose: 0.5 mg Documented By: NICHOL Ipratropium [place] (Ipratropium [place] Neb Soln 0.02% 2.5 Ml Vial) 0.5 mg INH UD [facility] Stop: 07/12/22 18:59 Last Admin: 06/12/22 19:08 Dose: 0.5 mg Documented By: NICHOL Levalbuterol HCl (Levalbuterol 1.25mg/0.5ml Neb) 1.25 mg INH UD [facility] Stop: 07/12/22 18:44 Last Admin: 06/12/22 19:08 Dose: 1.25 mg Documented By: NICHOL Levalbuterol HCl (Levalbuterol 1.25mg/0.5ml Neb) 1.25 mg INH UD [facility] Stop: 07/12/22 18:59 Last Admin: 06/12/22 19:08 Dose: 1.25 mg Documented By: NICHLO Levalbuterol HCl (Levalbuterol Hcl 0.63 Mg/3 Ml Neb) 0.63 mg NEB NOW STA; Protocol Stop: 06/12/22 19:47 Last Admin: 06/12/22 20:03 Dose: 0.63 mg Documented By: NICHOL Methylprednisolone (Methylprednisolone 125 Mg/2 Ml Vial) 125 mg IV NOW STA Stop: 06/12/22 18:46 Last Admin: 06/12/22 19:08 Dose: 125 mg Documented By: NICHOL Misizaiahaneous (Xopenex/Atrovent 1.25mg/0.5mg Neb Combo) 1 each NEB Q6R [facility]; Protocol Stop: 07/12/22 18:59 Last Admin: 06/12/22 19:16 Dose: Not Given Documented By: NICOHL Weinbergcellaneous (Xopenex/Atrovent 1.25mg/0.5mg Neb Combo) 1 each NEB Q6R [facility]; Protocol Stop: 07/12/22 18:59 Last Admin: 06/12/22 19:16 Dose: Not Given Documented By: [facility] Medical Decision Making Medical Records Attestation: I reviewed the patient's medical records. External medical records reviewed. This is the patient's sixth emergency department visit in the last 6 weeks for similar symptoms. Patient was admitted once during the previous visits but did not see pulmonology Home Medications Current Medication List: was personally reviewed by me Laboratory Data Attestation: I reviewed the patient's lab results. 06/12/22 16:14 06/12/22 16:14 Lab Results 06/12/22 06/12/22 06/12/22 Range/Units 16:14 16:14 16:14 WBC 13.35 H (4.8-10.8) K/ul RBC 5.40 (4.20-5.40) M/uL Hgb 14.4 (12.0-16.0) g/dl Hct 44.1 (37.0-47.0) % MCV 81.7 (80.0-100.0) fL MCH 26.7 (25.0-34.0) pg MCHC 32.7 (32.0-36.0) g/dL RDW Std Deviation 42.4 (36.4-46.3) fL RDW Coeff of Malick 14.4 (11.5-14.5) % Plt Count 320 (130-400) K/uL MPV 9.6 (9.4-12.4) fL Immature Gran % (Auto) 0.3 % Neut % (Auto) 69.1 % Lymph % (Auto) 24.2 % Falls % (Auto) 3.5 % Eos % (Auto) 2.3 % Baso % (Auto) 0.6 % Neut # (Auto) 9.22 H (1.40-6.50) K/uL Lymph # (Auto) 3.23 (1.2-3.4) K/uL Falls # (Auto) 0.47 (0.11-0.59) K/uL Eos # (Auto) 0.31 (0-0.50) K/uL Baso # (Auto) 0.08 (0-0.2) K/uL Immature Gran # (Auto) 0.04 (0.01-0.20) K/uL PT 10.9 (9.0-12.0) Seconds INR 1.0 (0.9-1.1) APTT 26.4 (21.0-31.0) Seconds PTT Ratio 1.0 Sodium 137 (136-145) mmol/L Potassium 3.9 (3.5-5.1) mmol/L Chloride 102 (98-107) mmol/L Carbon Dioxide 28 (21-32) mmol/L Anion Gap 7 (3-11) BUN 16 (6-23) mg/dl Creatinine 0.84 (0.6-1.2) mg/dl Est Cr Clr Drug Dosing Not Reportable Est GFR ( Amer) 86.9 ml/min Est GFR (Non-Af Amer) 75.0 ml/min BUN/Creatinine Ratio 19.0 (10-20) Glucose 160 H (70-99(Fasting)) mg/dl Calcium 9.5 (8.5-10.1) mg/dl Magnesium 1.8 (1.7-2.4) mg/dl Total Bilirubin 0.3 (0.2-1.0) mg/dl AST 11 L (13-39) U/L ALT 13 (7-52) U/L Alkaline Phosphatase 93 (34-104) U/L C-Reactive Protein 1.10 H (0-0.5) mg/dl B-Natriuretic Peptide (0-100) pg/ml Total Protein 7.3 (6.0-8.3) gm/dl Albumin 4.4 (3.4-5.0) gm/dl Globulin 2.9 (2.5-4.0) gm/dl Albumin/Globulin Ratio 1.5 (0.9-2) Procalcitonin (0-0.5) ng/ml SARS-CoV-2, RNA, NAAT (NEGATIVE) 06/12/22 06/12/22 06/12/22 Range/Units 16:14 16:14 19:13 WBC (4.8-10.8) K/ul RBC (4.20-5.40) M/uL Hgb (12.0-16.0) g/dl Hct (37.0-47.0) % MCV (80.0-100.0) fL MCH (25.0-34.0) pg MCHC (32.0-36.0) g/dL RDW Std Deviation (36.4-46.3) fL RDW Coeff of Malick (11.5-14.5) % Plt Count (130-400) K/uL MPV (9.4-12.4) fL Immature Gran % (Auto) % Neut % (Auto) % Lymph % (Auto) % Falls % (Auto) % Eos % (Auto) % Baso % (Auto) % Neut # (Auto) (1.40-6.50) K/uL Lymph # (Auto) (1.2-3.4) K/uL Falls # (Auto) (0.11-0.59) K/uL Eos # (Auto) (0-0.50) K/uL Baso # (Auto) (0-0.2) K/uL Immature Gran # (Auto) (0.01-0.20) K/uL PT (9.0-12.0) Seconds INR (0.9-1.1) APTT (21.0-31.0) Seconds PTT Ratio Sodium (136-145) mmol/L Potassium (3.5-5.1) mmol/L Chloride (98-107) mmol/L Carbon Dioxide (21-32) mmol/L Anion Gap (3-11) BUN (6-23) mg/dl Creatinine (0.6-1.2) mg/dl Est Cr Clr Drug Dosing Est GFR ( Amer) ml/min Est GFR (Non-Af Amer) ml/min BUN/Creatinine Ratio (10-20) Glucose (70-99(Fasting)) mg/dl Calcium (8.5-10.1) mg/dl Magnesium (1.7-2.4) mg/dl Total Bilirubin (0.2-1.0) mg/dl AST (13-39) U/L ALT (7-52) U/L Alkaline Phosphatase (34-104) U/L C-Reactive Protein (0-0.5) mg/dl B-Natriuretic Peptide 26 (0-100) pg/ml Total Protein (6.0-8.3) gm/dl Albumin (3.4-5.0) gm/dl Globulin (2.5-4.0) gm/dl Albumin/Globulin Ratio (0.9-2) Procalcitonin < 0.05 (0-0.5) ng/ml SARS-CoV-2, RNA, NAAT NEGATIVE (NEGATIVE) Imaging Data Attestation: I personally reviewed and interpreted this imaging study as follows: My Impression: Chest x-ray negative. Airway clear. No pneumothorax. No consolidation. No cardiomegaly or cephalization.. No free air under the diaphragm. No fractures of the skeletal structures. Radiologist's Impression: Chest X-Ray 06/12/22 15:41 SINGLE VIEW CHEST CLINICAL HISTORY: Dyspnea FINDINGS: An AP, portable, upright chest radiograph is compared to study dated 06/07/2022. The examination is degraded by portable technique and patient rotation. The heart is top normal for projection. Chronic interstitial thickening similar to previous. No airspace consolidation or large pleural effusion is identified. Scarring/atelectasis is seen at the lung bases. No pneumothorax is seen. The skeletal structures are osteopenic. Focal expansion of the right 4th rib is unchanged. IMPRESSION: No acute cardiopulmonary abnormality is identified. ACT 112: Negative or not required by law. Electronically signed by: Cayetano Espinoza M.D. 06/12/2022 4:03 PM ECG Data Attestation: I personally reviewed and interpreted this ECG as follows: Interpretation: Sinus rhythm with rate of 91. MS 162 QRS [address] elevation or ST depression. [facility] Narrative 1827: The patient was evaluated in room B6. A complete history and physical exam was performed Cardiac monitoring: An order was placed for continuous cardiac monitoring. The monitor shows a rate of 90 with sinus rhythm interpreted by me External medical records reviewed. This is the patient's sixth emergency department visit in the last 6 weeks for similar symptoms. Patient states she is originally from the [facility]. She states she was supposed to move back there but then when she went there she stated that her living situation was in a very precarious and dangerous living conditions so she came back up here. Patient states she was not able to see any of her doctors who she knows in the [facility]. Patient does not have a primary care physician associate here or floor waxer here and states she is here and definitely. We will give the patient breathing treatments steroids and Xanax and then reevaluate. 2000: Vital signs stable. Status post breathing treatments and steroids patient still having a lot of wheezing. Labs show leukocytosis of 13.35 however the patient has been on steroids recently. COVID-negative. Chest x-ray negative. Given the patient will be in this area for an undetermined amount of time since her living situation [facility] cannot be secured yet, the patient will be admitted to the hospital for continuous DuoNeb treatments and pulmonology evaluation is not clear when she is getting go back to her home area to be evaluated by her floor waxer. Discussed case with the [facility] [place] Divisionist team who will evaluate the patient for admission. Impression & Plan COPD (chronic obstructive pulmonary disease) Discharge Plan Visit Data Chief Complaint: Shortness of Breath/Dyspnea Stated Complaint: CRACKLING IN LUNGS, SOB, FLUID RETENTION ED Provider: Bhupinder Allen Discharge Problem: COPD (chronic obstructive pulmonary disease) Patient Disposition: Admitted As Inpatient Discharge Instructions Interventions: ED Discharge Assessment Last Done: 06/12/22 21:07
[2022-06-12] MEDS ORDERED: XOPENEX/ATROVENT 1.25mg/0.5MG NEB COMBO NEB SCH ×2 (19:00)
[2022-06-12] MEDS ORDERED: LEVALBUTEROL HCL 0.63 MG/3 ML NEB NEB STA (19:46)
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
[2022-06-12] MEDS ORDERED: ENOXAPARIN 0.5 MG/KG SQ SCH (21:00)
[2022-06-12] MEDS ORDERED: FUROSEMIDE 40 MG/4 ML VIAL IV ONE (21:05)
[2022-06-12] MEDS ORDERED: FUROSEMIDE INJ 20 MG/2 ML VIAL IV ONE (21:09)
[2022-06-12] MEDS ORDERED: GLUCOSE 10 TAB/TUBE PO PRN (21:47)
[2022-06-12] MEDS ORDERED: DEXTROSE 50% 50 ML SYRINGE IV PRN (21:47)
[2022-06-12] MEDS ORDERED: GLUCAGON FOR INJ 1 MG VIAL SQ PRN (21:47)
[2022-06-12] MEDS ORDERED: GLUCOSE 40% GEL 15 GM TUBE PO PRN (21:47)
[2022-06-12] MEDS ORDERED: NYSTATIN POWDER 15GM BTL EXT PRN (21:47)
[2022-06-12] MEDS ORDERED: IPRATROPIUM BROMIDE HFA INHALER INH SCH (21:47)
[2022-06-12] MEDS ORDERED: CARBOHYDRATES FOR HYPOGLYCEMIA PO PRN (21:47)
[2022-06-12] MEDS ORDERED: ALPRAZolam 0.25 MG TABLET PO PRN (21:47)
[2022-06-12] MEDS ORDERED: ONDANSETRON 4 MG OD TAB PO PRN (21:59)
[2022-06-12] MEDS ORDERED: AZITHROMYCIN 250 MG TAB PO ONE (22:00)
[2022-06-12] MEDS: BUPRENORPHINE/NALOXONE 8/2 MG TAB SL SCH (22:23)
[2022-06-12] MEDS: guaiFENesin 600 MG TABCR PO SCH (22:24)
[2022-06-12] MEDS ORDERED: LEVALBUTEROL TARTRATE 15 GM HFA.AER.AD INH PRN (22:25)
[2022-06-12] MEDS: QUEtiapine FUMARATE 200 MG TAB PO SCH (22:59)
[2022-06-12] MEDS: busPIRone 7.5 MG TAB PO SCH (22:59)
[2022-06-12] MEDS: methylPREDNISolone 50 MG in SYRINGE 0 ML IV SCH ×2 (23:00→23:04)
[2022-06-12] MEDS: INSULIN ASPART PER UNIT SC SCH (23:00)
[2022-06-12] MEDS: ACETAMINOPHEN 325 MG TAB PO PRN (23:12)
[2022-06-13] MEDS: LEVALBUTEROL HCL 0.63 MG/3 ML NEB NEB SCH ×5 (00:12→19:47)
[2022-06-13] MEDS ORDERED: IPRATROPIUM BROMIDE NEB SOLN 0.02% 2.5 ML VIAL INH SCH (01:00)
[2022-06-13] MEDS ORDERED: LEVALBUTEROL HCL 0.63 MG/3 ML NEB NEB SCH (01:00)
[2022-06-13] MEDS: methylPREDNISolone 50 MG in SYRINGE 0 ML IV SCH ×2 (04:47→10:07)
[2022-06-13 07:02] LABS: Basophils # (auto) 0.02 K/uL (0-0.2); Basophils % (auto) 0.2 %; Hematocrit (blood only) 44.5 % (37.0-47.0); Hemoglobin 14.5 g/dl (12.0-16.0); Immature Granulocytes # (auto) 0.05 K/uL (0.01-0.20); Immature Granulocytes % (auto) 0.4 %; Lymphocytes # (auto) 1.76 K/uL (1.2-3.4); Lymphocytes % (auto) 15.2 %; Mean Corpuscular Hemoglobin 26.1 pg (25.0-34.0); Mean Corpuscular Hgb Conc 32.6 g/dL (32.0-36.0); Mean Corpuscular Volume 80.2 fL (80.0-100.0); Mean Platelet Volume 9.6 fL (9.4-12.4); Monocytes # (auto) 0.09 K/uL (0.11-0.59); Monocytes % (auto) 0.8 %; Neutrophils # (auto) 9.69 K/uL (1.40-6.50); Neutrophils % (auto) 83.4 %; Platelet Count 325 K/uL (130-400); RDW Coefficient of Variation 14.2 % (11.5-14.5); Red Blood Count 5.55 M/uL (4.20-5.40); White Blood Count 11.61 K/ul (4.8-10.8)
[2022-06-13 07:29] LABS: Calcium 9.6 mg/dl (8.5-10.1); Est GFR (African American) 108.4 ml/min; Est GFR (Non-African American) 93.5 ml/min; Potassium 4.4 mmol/L (3.5-5.1)
[2022-06-13] MEDS: FUROSEMIDE 40 MG TAB PO SCH (08:10)
[2022-06-13] MEDS: AZITHROMYCIN 250 MG TAB PO SCH (08:10)
[2022-06-13] MEDS: FLUTICASONE FUROATE 200MCG 14 PUFFS/INHALER INH SCH (08:10)
[2022-06-13] MEDS: busPIRone 7.5 MG TAB PO SCH (08:10)
[2022-06-13] MEDS: guaiFENesin 600 MG TABCR PO SCH ×2 (08:11→21:11)
[2022-06-13] MEDS: UMECLIDINIUM/VILANTEROL 62.5/25MCG 7 PUFFS/INHALER INH SCH (08:11)
[2022-06-13] MEDS: VALSARTAN 80 MG TAB PO SCH (08:11)
[2022-06-13] MEDS: ENOXAPARIN 150 MG/ML SYR SQ SCH (08:13)
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
[2022-06-13] MEDS: BUPRENORPHINE/NALOXONE 8/2 MG TAB SL SCH ×2 (08:18→21:10)
[2022-06-13] MEDS: INSULIN ASPART PER UNIT SC SCH ×4 (08:34→21:09)
[2022-06-13] MEDS: LANTUS PER UNIT CHARGE SQ SCH (08:35)
[2022-06-13] MEDS ORDERED: ALPRAZolam 0.25 MG TABLET PO SCH (09:00)
--- NOTE | 2022-06-13 10:10 | CT Scan Report ---
CT chest diagnostic wo con CLINICAL HISTORY: progressive SOB, h/o COPD, CHF TECHNIQUE: Multidetector row helical CT of the chest was performed. Coronal and sagittal reformations were obtained. Automated dose lowering techniques and/or adjustment according to patient size were u tilized for this exam. CT DOSE: 759.59 mGy.cm Comparison: Comparison is made to chest radiograph 06/12/2022 FINDINGS: Lungs and pleura: Multiple pulmonary nodules are seen including the followin mm nodule left apex (series 4 image 50) 2 mm nodule in the left upper lobe (image 109) 3 mm nodule in the right lower lobe and right image 155) 7 mm nodule in the right lung base (image 210). Heart and pericardium: Heart size is normal. No pericardial effusion. Vessels: Severe atherosclerotic changes in the aorta and coronary arteries. Mediastinum and jase: Unremarkable. Chest wall and lower neck: Unremarkable. Abdomen: Unremarkable. Bones: There is an expansile lesion of the right fourth rib which is unchanged from multiple prior ex ams. IMPRESSION: 1. No acute abnormalities in particular no evidence of pneumonia. A few pulmonary nodules are as abo ve. 2. Redemonstration of expansile lesion of the fourth rib. ACT 112: Positive. There are findings on this exam that require communication between the performing entity and the patient following Patient Test Result Information Act ([place] Act 112) guidelines. Electronically signed by: Raheem Macias M.D. 06/13/2022 10:08 AM
[2022-06-13] MEDS: busPIRone 5 MG TAB PO SCH ×2 (13:37→21:10)
[2022-06-13] MEDS: ALPRAZolam 0.25 MG TABLET PO SCH ×2 (14:26→21:10)
--- NOTE | 2022-06-13 16:20 | XCELERA ---
[id number]
--- NOTE | 2022-06-13 19:45 | Billing Data ---
Date of Service June 13, 2022 Coding Level of Care Code 06514 INT INP/OBS CARE
[2022-06-13] MEDS: QUEtiapine FUMARATE 200 MG TAB PO SCH (21:10)
[2022-06-13] MEDS: methylPREDNISolone 40 MG in SYRINGE 0 ML IV SCH (21:11)
[2022-06-13] MEDS: ACETAMINOPHEN 325 MG TAB PO PRN (21:25)
--- NOTE | 2022-06-13 21:52 | Electrocardiogram Report ---
Test Reason : Blood Pressure : / mmHG Vent. Rate : 091 BPM Atrial Rate : 091 BPM P-R Int : 162 ms QRS Dur : 068 ms QT Int : 348 ms P-R-T Axes : 055 002 050 degrees QTc Int : 428 ms Normal sinus rhythm Possible Inferior infarct , age undetermined Anteroseptal infarct , age undetermined Abnormal ECG When compared with ECG of 07-JUN-2022 10:25, Anteroseptal infarct is now present, previously seen 05/26/22 13:22 No significant change was found Confirmed by Nelson Meehan ([id number]) on 06/13/2022 9:52:12 PM Referred By: REFERRED SELF Confirmed By:Pb Meehan
[2022-06-14] MEDS: LEVALBUTEROL HCL 0.63 MG/3 ML NEB NEB SCH ×2 (00:54→07:09)
[2022-06-14] MEDS: methylPREDNISolone 40 MG in SYRINGE 0 ML IV SCH (07:45)
[2022-06-14] MEDS: VALSARTAN 80 MG TAB PO SCH (07:46)
[2022-06-14] MEDS: FUROSEMIDE 40 MG TAB PO SCH (07:46)
[2022-06-14] MEDS: busPIRone 5 MG TAB PO SCH (07:46)
[2022-06-14] MEDS: AZITHROMYCIN 250 MG TAB PO SCH (07:47)
[2022-06-14] MEDS: ALPRAZolam 0.25 MG TABLET PO SCH (07:54)
[2022-06-14] MEDS: BUPRENORPHINE/NALOXONE 8/2 MG TAB SL SCH (07:54)
[2022-06-14] MEDS: guaiFENesin 600 MG TABCR PO SCH (07:55)
[2022-06-14] MEDS: INSULIN ASPART PER UNIT SC SCH (09:15)
[2022-06-14] MEDS: LANTUS PER UNIT CHARGE SQ SCH (09:18)
[2022-06-14] MEDS: ENOXAPARIN 150 MG/ML SYR SQ SCH (09:19)
[2022-06-14] MEDS: UMECLIDINIUM/VILANTEROL 62.5/25MCG 7 PUFFS/INHALER INH SCH (09:44)
[2022-06-14] MEDS: FLUTICASONE FUROATE 200MCG 14 PUFFS/INHALER INH SCH (09:44)
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
== END 2022-06-14 11:10 | disposition home or self-care (01) ==
LOC: ED 15:07 → 2N 15:07 → SUATTDRO 20:24 → 2N 21:07

== ENCOUNTER 2022-06-21 16:01 | Inpatient (IN) ==
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
[2022-06-21] MEDS ORDERED: ACETAMINOPHEN 500 MG TAB PO STA (18:08)
[2022-06-21] MEDS ORDERED: LORazepam 0.5 MG TAB PO STA (19:09)
[2022-06-21] MEDS ORDERED: ALPRAZolam 0.5 MG TABLET ONE (19:10)
[2022-06-21 19:23] LABS: Basophils # (auto) 0.08 K/uL (0-0.2); Basophils % (auto) 0.4 %; Eosinophils # (auto) 0.24 K/uL (0-0.50); Eosinophils % (auto) 1.3 %; Hematocrit (blood only) 45.6 % (37.0-47.0); Hemoglobin 14.6 g/dl (12.0-16.0); Immature Granulocytes # (auto) 0.21 K/uL (0.01-0.20); Immature Granulocytes % (auto) 1.1 %; Lymphocytes # (auto) 3.04 K/uL (1.2-3.4); Lymphocytes % (auto) 16.3 %; Mean Corpuscular Hemoglobin 26.7 pg (25.0-34.0); Mean Corpuscular Volume 83.5 fL (80.0-100.0); Mean Platelet Volume 9.9 fL (9.4-12.4); Monocytes # (auto) 0.95 K/uL (0.11-0.59); Monocytes % (auto) 5.1 %; Neutrophils # (auto) 14.16 K/uL (1.40-6.50); Neutrophils % (auto) 75.8 %; Platelet Count 312 K/uL (130-400); RDW Coefficient of Variation 14.6 % (11.5-14.5); RDW Standard Deviation 43.8 fL (36.4-46.3); Red Blood Count 5.46 M/uL (4.20-5.40); White Blood Count 18.68 K/ul (4.8-10.8)
[2022-06-21] MEDS ORDERED: ALBUT/IPRATROP 3MG/0.5MG NEB 3 ML VIAL NEB STA (19:31)
[2022-06-21 19:55] LABS: Troponin I High Sensitivity 11.8 pg/ml (0-14)
[2022-06-21 19:58] LABS: Albumin Globulin Ratio 1.5 (0.9-2); Albumin Level 4.1 gm/dl (3.4-5.0); BUN Creatinine Ratio 20.8 (10-20); Bilirubin,Total 0.3 mg/dl (0.2-1.0); Calcium 9.1 mg/dl (8.5-10.1); Creatinine Clr Calc Pharmacy 84.8 ml/min; Est GFR (African American) 104.8 ml/min; Est GFR (Non-African American) 90.4 ml/min; Globulin 2.7 gm/dl (2.5-4.0); Potassium 4.1 mmol/L (3.5-5.1); Total Protein 6.8 gm/dl (6.0-8.3)
[2022-06-21] MEDS ORDERED: LORazepam 2 MG/1 ML VIAL IM STA (20:51)
[2022-06-21] MEDS ORDERED: LORazepam 2 MG/1 ML VIAL IM ONE (21:20)
[2022-06-22] MEDS ORDERED: HYDROmorphone INJ 1 MG/ML SYRINGE IV STA (00:08)
--- NOTE | 2022-06-22 00:31 | History & Physical Report ---
Date of Service June 22, 2022 Assessment & Plan (1) Rib fractures: Plan: 62-year-old female with history of COPD, diabetes, multiple myeloma, PE on therapeutic Lovenox and CHF presenting with acute fractures of right ribs 5, 6, and 7 sustained after patient fell in the yard. Hemodynamically stable. No damage to underlying structures. No pulmonary contusion. No respiratory distress. Adequate oxygenation on room air. Patient is at higher risk for developing complications secondary to presence of 3 rib fractures as well as underlying history of asthma/COPD. She is on therapeutic Lovenox for history of pulmonary embolism in the setting of multiple myeloma/malignancy. No damage to internal structures noted on initial scans. Admit to PCU Pain control with Dilaudid as needed-patient is on buprenorphinenaloxone films for history of multiple myeloma. May need pain management consultation pending medication requirements. Tylenol 1 g p.o. 3 times daily Perform oral hygiene every 4 hours Ambulate with assistance as needed Incentive spirometry every hour Supplemental oxygen as needed (2) Multiple myeloma: Plan: Patient with multiple myeloma status post stem cell treatment in 2013. She follows with a physician at [facility] near her hometown [facility]. She is presently not undergoing any treatment for her multiple myeloma. Continue buprenorphinenaloxone for pain management (3) CHF (congestive heart failure): Plan: Heart failure with preserved EF. Patient does not appear to be acutely decompensated at this time. Last echo performed on 06/13/2022 with normal LV size. Mild concentric LVH. EF 60 to 65% with no regional wall motion abnormalities. Grossly normal RV size and function. No significant valvular pathology. Small pericardial effusion present Continue Lasix 40 mg p.o. daily (4) COPD (chronic obstructive pulmonary disease): Plan: Patient with recent exacerbation of COPD. Presently does not seem to be in acute exacerbation. She is at high risk for respiratory compromise given her recent fall, rib fractures x3 and history of COPD/asthma Continue ipratropium bromide Continue Xopenex Continue Trelegy or formulary equivalent Supplemental oxygen as needed to maintain saturations of 92% We will give 1 additional dose of prednisone 10 mg to complete her taper Patient is to be on supplemental oxygen at night but reports she did not bring her tank to her sister's house. Should be discharged with home oxygen if appropriate (5) History of pulmonary embolism: Plan: Patient with history of pulmonary embolism. She is presently on Lovenox therapeutic dose Continue Lovenox 150 mg subcutaneously daily Monitor closely for evidence of bleeding given patient's recent trauma Repeat CBC in the morning (6) Diabetes: Plan: With elevated blood sugar = 3022 overall poorly controlled with last hemoglobin A1c on 05/15/2022 = 9.3 Lantus 10 units twice daily Insulin sliding scale Goal blood sugar [id number] (7) Anxiety: Plan: Patient with anxiety. Continue Seroquel 20 mg p.o. nightly Continue buspirone 10 mg p.o. 3 times daily Continue Xanax 0.25 mg p.o. twice daily as needed FENHep-Lock, electrodes within normal limits, consistent carb/heart healthy diet as tolerated Prophylaxiscontinue Lovenox 150 mg subcutaneously daily Codefull per discussion with patient Dispositionadmit to PCU History of Present Illness Chief Complaint: Rib fractures status post fall Primary Care Provider: MARGARET Cabello Janae Monzon is a 62-year-old female with history of diabetes, multiple myeloma, prior PE on therapeutic Lovenox, COPD on 2 L of oxygen nightly and asthma presenting after a fall resulting in rib fractures x3. Patient is currently living with her sister. This evening she went out on the back porch to smoke a cigarette. She was eating around the yard and was unaware that the yard went into a hill. She stumbled down the hill and was unable to stop her feet. She then fell and landed face first in the yard. She hit her face and right side of her chest against the ground. She does not think she lost consciousness. She reports she had a difficult time breathing initially because of having the wind knocked out of her. She was helped up by a neighbor and EMS was called. Patient is complaining of severe bilateral rib pain right more than left as well as some shortness of breath and nausea secondary to the pain. She denies fever, chills, chest pain, cough, dizziness. Denies abdominal pain, vomiting, diarrhea. No additional complaints at this time. Of note, patient was recently admitted to [facility] from 06/12/2022 - 06/14/2022 with a COPD exacerbation. She was discharged on a steroid taper. She reports that her breathing has improved since being on the steroids. In the ER she is afebrile, hemodynamically stable, in moderate distress secondary to underlying pain. ER course: Tylenol 1 g p.o. Alprazolam 0.5 mg Albuterol 3 mL neb Lorazepam 0.5 mg IM x2 doses Dilaudid 1 mg IV Allergies Allergy/AdvReac Type Severity Reaction Status Date / Time codeine Allergy Severe Anaphylaxis Verified 06/21/22 23:44 Iodinated Contrast Media Allergy Severe Anaphylaxis Verified 06/21/22 23:44 shellfish derived Allergy Severe Anaphylaxis Verified 06/21/22 23:44 tramadol Allergy Intermediate ITCHINESS Verified 06/21/22 23:44 iohexol Allergy Unknown CAN'T Verified 06/21/22 23:44 REMEMBER diphenhydramine AdvReac Severe Anxiety Verified 06/21/22 23:44 [From Benadryl] montelukast [From Singulair] AdvReac Intermediate Anxiety Verified 06/21/22 23:4 4 promethazine AdvReac Intermediate Anxiety Verified 06/21/22 23:44 Home Medications Medication Instructions Recorded Confirmed Type buprenorphine 8 mg-naloxone 2 mg 1 film sublingual BID 05/14/22 06/21/22 History sublingual film buspirone 5 mg tablet 10 mg PO TID 05/14/22 06/21/22 History enoxaparin 150 mg/mL subcutaneous 150 mg subcut DAILY 05/14/22 06/21/22 History syringe (Lovenox) fluticasone fur. 200 mcg-umeclid 1 inh inhalation DAILY 05/14/22 06/21/22 History 62.5 mcg-vilant 25 mcg inhalat.powder (Trelegy Ellipta) furosemide 20 mg tablet 40 mg PO DAILY 05/14/22 06/21/22 History ipratropium bromide 17 2 puff inhalation DIRECTED 05/14/22 06/21/22 History mcg/actuation HFA aerosol inhaler (Atrovent HFA) levalbuterol tartrate 45 2 inh inhalation Q6H PRN Shortness 05/14/22 06/21/22 History mcg/actuation aerosol inhaler Of Breath (Xopenex HFA) nystatin 100,000 unit/gram topical 1 applic topical BID PRN UNDER 05/14/22 06/21/22 History powder BREASTS NEEDED. nystatin 100,000 unit/mL oral 5 ml PO DIRECTED 05/14/22 06/21/22 History suspension ondansetron HCl 4 mg tablet 4 mg PO Q8H PRN NAUSEA/VOMITING 05/14/22 06/21/22 History quetiapine 200 mg tablet 200 mg PO HS 05/14/22 06/21/22 History valsartan 160 mg tablet 160 mg PO DAILY 05/14/22 06/21/22 History alprazolam 0.25 mg tablet (Xanax) 0.25 mg PO BID PRN anxiety #20 tabs 06/14/22 06/21/22 Rx prednisone 10 mg tablet 10 mg PO DIRECTED #20 tabs 06/14/22 06/21/22 Rx insulin aspart U-100 100 unit/mL 0 unit subcut TIDWMEAL 06/21/22 06/21/22 History (3 mL) subcutaneous pen insulin glargine 100 unit/mL (3 25 unit subcut QAM 06/21/22 06/21/22 History mL) subcutaneous pen (Lantus Solostar U-100 Insulin) Past Med/Surg History Medical History Asthma Asthma exacerbation in COPD COPD (chronic obstructive pulmonary disease) Diabetes Multiple myeloma No pertinent family history Pulmonary embolism Tobacco use Surgical History No pertinent past surgical history Social History Smoking Status: Current every day smoker Tobacco Type: Cigarettes Cigarettes Per Day: 1-2/day; Hx Alcohol Use: No Hx Substance Use: No Preferred Language: Hungarian Communication Ability: Effective Rod And Tube Straightener Required: No Beliefs That Will Affect Care: None Current Living Situation: Other Current Living Situation Comment: Patient is staying with sister currently Feels Safe at Home: Yes Assistive Devices: None Review of Systems Review of Systems: All systems reviewed & are unremarkable except as noted in HPI & below Physical Exam Physical Exam: General: patient tearful, in moderate distress secondary to pain, awake alert and oriented x4 Skin: warm, dry, intact, no rashes or lesions HEENT: NC/AT, PERRL, EOMI, anicteric sclera, conjunctiva without injection, external ear normal to inspection and nontender, nares patent, moist mucus membranes, dentition intact, no oropharyngeal lesions, neck supple, trachea midline, no LAD, no thyromegaly, no JVD Heart: +S1/S2, regular, no m/r/g Lungs: No deformity of the chest, equal air entry bilaterally with normal chest wall mechanics, no flail chest, no crepitus, visible splinting with shallow breathing, mildly elevated respiratory rate to approximately 16 rest per minute. Crackles in bilateral bases. No wheezing Abd: +BS, soft, NT/ND, no masses/organomegaly/ascites Ext: warm, 2+ pulses in UE/LE bilaterally, no clubbing/cyanosis or edema Neuro: nonfocal, patient AA&O x 4, speech intact, no facial droop, moving all extremities on command with equal strength 5/5 Results & Data Results & Data ([facility]) Vital Signs (Past 12 Hours) Vital Signs Temp Pulse Resp BP Pulse Ox O2 Del Method 06/21/22 16:05 36.8 C 106 H 20 132/80 95 Room Air Laboratory Results Laboratory Results WBC 18.68 K/ul (4.8-10.8) H 06/21/22 18:49 RBC 5.46 M/uL (4.20-5.40) H 06/21/22 18:49 Hgb 14.6 g/dl (12.0-16.0) 06/21/22 18:49 Hct 45.6 % (37.0-47.0) 06/21/22 18:49 MCV 83.5 fL (80.0-100.0) 06/21/22 18:49 MCH 26.7 pg (25.0-34.0) 06/21/22 18:49 MCHC 32.0 g/dL (32.0-36.0) 06/21/22 18:49 RDW Std Deviation 43.8 fL (36.4-46.3) 06/21/22 18:49 RDW Coeff of Malick 14.6 % (11.5-14.5) H 06/21/22 18:49 Plt Count 312 K/uL (130-400) 06/21/22 18:49 MPV 9.9 fL (9.4-12.4) 06/21/22 18:49 Immature Gran % (Auto) 1.1 % 06/21/22 18:49 Neut % (Auto) 75.8 % 06/21/22 18:49 Lymph % (Auto) 16.3 % 06/21/22 18:49 Door % (Auto) 5.1 % 06/21/22 18:49 Eos % (Auto) 1.3 % 06/21/22 18:49 Baso % (Auto) 0.4 % 06/21/22 18:49 Neut # (Auto) 14.16 K/uL (1.40-6.50) H 06/21/22 18:49 Lymph # (Auto) 3.04 K/uL (1.2-3.4) 06/21/22 18:49 Door # (Auto) 0.95 K/uL (0.11-0.59) H 06/21/22 18:49 Eos # (Auto) 0.24 K/uL (0-0.50) 06/21/22 18:49 Baso # (Auto) 0.08 K/uL (0-0.2) 06/21/22 18:49 Immature Gran # (Auto) 0.21 K/uL (0.01-0.20) H 06/21/22 18:49 Sodium 136 mmol/L (136-145) 06/21/22 18:49 Potassium 4.1 mmol/L (3.5-5.1) 06/21/22 18:49 Chloride 100 mmol/L (98-107) 06/21/22 18:49 Carbon Dioxide 28 mmol/L (21-32) 06/21/22 18:49 Anion Gap 8 (3-11) 06/21/22 18:49 BUN 15 mg/dl (6-23) 06/21/22 18:49 Creatinine 0.72 mg/dl (0.6-1.2) 06/21/22 18:49 Est Cr Clr Drug Dosing 84.8 ml/min 06/21/22 18:49 Est GFR ( Amer) 104.8 ml/min 06/21/22 18:49 Est GFR (Non-Af Amer) 90.4 ml/min 06/21/22 18:49 BUN/Creatinine Ratio 20.8 (10-20) H 06/21/22 18:49 Glucose 302 mg/dl (70-99(Fasting)) H* 06/21/22 18:49 Calcium 9.1 mg/dl (8.5-10.1) 06/21/22 18:49 Total Bilirubin 0.3 mg/dl (0.2-1.0) 06/21/22 18:49 AST 49 U/L (13-39) H 06/21/22 18:49 ALT 49 U/L (7-52) 06/21/22 18:49 Alkaline Phosphatase 108 U/L (34-104) H 06/21/22 18:49 Troponin I High Sens 11.8 pg/ml (0-14) 06/21/22 18:49 Total Protein 6.8 gm/dl (6.0-8.3) 06/21/22 18:49 Albumin 4.1 gm/dl (3.4-5.0) 06/21/22 18:49 Globulin 2.7 gm/dl (2.5-4.0) 06/21/22 18:49 Albumin/Globulin Ratio 1.5 (0.9-2) 06/21/22 18:49 SARS-CoV-2, RNA, NAAT NEGATIVE (NEGATIVE) 06/22/22 01:[address] head, face CT, chest CT, cervical spine CT, abdomen/pelvis CT performed Read by stat rad Imaging revealed fracture of right ribs 5, 6, 7. No pulmonary contusion or damage to underlying structures. Expansile osseous lesion in the right fourth rib ECG Additional Comments: EKG reveals sinus rhythm at 92 bpm with premature atrial complexes, MS = 162, QRS = 80, QTc equals 437 Code Status & VTE Plan VTE Prophylaxis Plan VTE Prophylaxis will be ordered: Yes PG Care Time/CCT Total # of Minutes Spent Total Time Spent with Patient: Total time spent is greater than 50% in coordination of care (as documented) at patient's floor/unit and/or counseling patient: Coding Level of Care Code 87243 INT INP/OBS CARE 3/75MIN Diagnoses Rib fractures S22.49XA Multiple myeloma C90.00 CHF (congestive heart failure) I50.9 COPD (chronic obstructive pulmonary disease) J44.9 COPD type: unspecified COPD History of pulmonary embolism Z86.711 Diabetes E11.9 Anxiety F41.9 (4) COPD (chronic obstructive pulmonary disease) COPD type: unspecified COPD Qualified Code(s): J44.9 - Chronic obstructive pulmonary disease, unspecified
[2022-06-22] MEDS ORDERED: ONDANSETRON INJ 2 MG/ML 2 ML VIAL IV PRN (02:58)
[2022-06-22] MEDS ORDERED: DEXTROSE 50% 50 ML SYRINGE IV PRN (02:58)
[2022-06-22] MEDS ORDERED: CARBOHYDRATES FOR HYPOGLYCEMIA PO PRN (02:58)
[2022-06-22] MEDS ORDERED: GLUCOSE 40% GEL 15 GM TUBE PO PRN (02:58)
[2022-06-22] MEDS ORDERED: IPRATROPIUM BROMIDE HFA INHALER INH PRN (02:58)
[2022-06-22] MEDS ORDERED: POLYETHYLENE (MIRALAX) 17 GM PACK PO PRN (02:58)
[2022-06-22] MEDS ORDERED: LEVALBUTEROL TARTRATE 15 GM HFA.AER.AD INH PRN (02:58)
[2022-06-22] MEDS ORDERED: GLUCOSE 10 TAB/TUBE PO PRN (02:58)
[2022-06-22] MEDS ORDERED: DOCUSATE SODIUM 100 MG CAP PO PRN (02:58)
[2022-06-22] MEDS ORDERED: GLUCAGON FOR INJ 1 MG VIAL SQ PRN (02:58)
[2022-06-22] MEDS: HYDROmorphone INJ 1 MG/ML SYRINGE IV PRN ×2 (03:17→20:10)
[2022-06-22] MEDS: ALPRAZolam 0.25 MG TABLET PO PRN ×2 (05:06→15:22)
--- NOTE | 2022-06-22 07:40 | CT Scan Report ---
HEAD CT NONCONTRAST CT DOSE: HISTORY: Trauma TECHNIQUE: Multiaxial CT images of the head were performed without the use of intravenous contrast. A utomated exposure control was utilized for this study. A dose lowering technique was utilized adheri ng to the principles of ALARA. Comparison: None. Findings: Motion artifact. The paranasal sinuses and mastoid air cells are clear. The calvarium and s kull base are intact. The ventricles and sulci are within normal limits. There is no mass, hematoma, midline shift, or acute infarct. Impression: Motion artifact. No definite acute intracranial abnormality. ACT 112: Negative or not required by law. Electronically signed by: Chester Salas M.D. 06/22/2022 7:38 AM
--- NOTE | 2022-06-22 07:48 | Hospitalist Progress Note ---
Date of Service June 22, 2022 Assessment & Plan (1) Rib fractures: Plan: 62-year-old female with history of COPD, diabetes, multiple myeloma, PE on therapeutic Lovenox and CHF presenting with acute fractures of right ribs 5, 6, and 7 sustained after patient fell in the yard. Hemodynamically stable. No damage to underlying structures. No pulmonary contusion. No respiratory distress. Adequate oxygenation on room air. Patient is at higher risk for developing complications secondary to presence of 3 rib fractures as well as underlying history of asthma/COPD. She is on therapeutic Lovenox for history of pulmonary embolism in the setting of multiple myeloma/malignancy. No damage to internal structures noted on initial scans. Pain control with Dilaudid as needed-patient is on buprenorphinenaloxone films for history of multiple myeloma. She states that she is prescribed Suboxone by doctor in [place]. Will consult pain management for help with pain regimen moving forward, especially for breakthrough pain. - Declines lidocaine path as she states it gave her a skin reaction prior Tylenol 1 g p.o. 3 times daily Perform oral hygiene every 4 hours Incentive spirometry every hour Supplemental oxygen as needed (2) Nasal fracture: Plan: - CT face noted nondisplaced bilateral nasal bone fractures - Denies trouble breathing (3) Multiple myeloma: Plan: Patient with multiple myeloma status post stem cell treatment in 2013. She follows with a physician at [facility] near her hometown of [place]. She is presently not undergoing any treatment for her multiple myeloma. Continue buprenorphinenaloxone for pain management (4) CHF (congestive heart failure): Plan: Heart failure with preserved EF. Patient does not appear to be acutely decompensated at this time. Last echo performed on 06/13/2022 with normal LV size. Mild concentric LVH. EF 60 to 65% with no regional wall motion abnormalities. Grossly normal RV size and function. No significant valvular pathology. Small pericardial effusion present Continue Lasix 40 mg p.o. daily (5) COPD (chronic obstructive pulmonary disease): Plan: Patient with recent exacerbation of COPD. Presently does not seem to be in acute exacerbation. She is at high risk for respiratory compromise given her recent fall, rib fractures x3 and history of COPD/asthma Continue ipratropium bromide Continue Xopenex Continue Trelegy or formulary equivalent Supplemental oxygen as needed to maintain saturations of 92% Prednisone taper from prior admission was completed on 06/22 Patient is to be on supplemental oxygen at night but reports she did not bring her tank to her sister's house. Should be discharged with home oxygen if appropriate (6) History of pulmonary embolism: Plan: Patient with history of pulmonary embolism. She is presently on Lovenox therapeutic dose Continue Lovenox 150 mg subcutaneously daily Monitor closely for evidence of bleeding given patient's recent trauma Continue to trend CBC (7) Diabetes: Plan: Poorly controlled with last hemoglobin A1c on 05/15/2022 = 9.3 Lantus 10 units twice daily Insulin sliding scale Goal blood sugar [id number] (8) Anxiety: Plan: Patient with anxiety. Continue Seroquel 20 mg p.o. nightly Continue buspirone 10 mg p.o. 3 times daily Continue Xanax 0.25 mg p.o. twice daily as needed FENHep-Lock, consistent carb/heart healthy diet as tolerated Prophylaxiscontinue Lovenox 150 mg subcutaneously daily Codefull Admission and Anticipated Discharge Date Admission Date: June 22, 2022 Supervising Physician Co-Signing Physician Notes I also saw the patient with the resident physician and confirmed rosario portions of the history and physical examination. I agree with the impression plan as noted in the resident documentation. Upon our midmorning exam, the patient is seated in the bedside chair. She complains of rib pain. This is worse with deep inspiration. She was quite anxious this morning, but she states that she feels better in terms of both her anxiety and her pain subsequent to being medicated for anxiety. She also had some pain relief with the Dilaudid; this was given about 4 hours ago and she feels that her pain is beginning to increase. Exam 119/80, 93, 22, 36.8, 91% on room air Pleasant. Mildly anxious. Alert and oriented. Mild swelling across the nasal bridge. No obvious deformity. Heart regular rate and rhythm Lungs are essentially clear throughout. She does have pain with palpation of the right anterior ribs. Deep inspiration increases pain. Data White blood cell count 14.78, hemoglobin 15.4 Electrolytes are unremarkable. BUN 13, creatinine 0.55. Imaging Chest x-ray shows no acute process in the chest. Does note a stable right anterior fourth rib lesion. CT head shows no acute abnormalities. CT of the face shows a nondisplaced nasal fracture CT of the chest shows acute nondisplaced fractures of the anterior right fifth, sixth, and seventh ribs. No pneumothorax. CT of the C-spine shows no acute fractures Assessment and Plan Multiple rib fractures, nasal bone fracture status post fall History of multiple myeloma History of recurrent VTE, on therapeutic dose Lovenox Pain control; will consult pain management in AM for assistance Supplemental oxygen as needed; incentive spirometry With reassuring imaging other than above noted rib/nasal bone fracture, will resume therapeutic Lovenox Repeat CBC in a.m. Additional per resident documentation Subjective Complaining of right sided rib pain. Also has some facial pain localized to nose. She is very anxious about situation. She is from [facility] and came to [place] due to social situation to live with her sister. Is in the process of trying to move back to [place], but has been struggling to find housing. Review of Systems Review of Systems: As per above Physical Exam Physical Exam: Constitutional: well-appearing, no acute distress HEENT: NCAT, no conjunctival injection CV: regular rhythm, no murmur appreciated, extremities well-perfused, no LE edema Resp: CTABL, no wheezes/rales/rhonchi appreciated, no increased work of breathing GI: soft, nondistended, nontender, BS normoactive MSK: pain over right ant/post ribs Skin: warm, dry, no rash appreciated Neuro: alert, oriented, no focal neurologic deficit appreciated Results & Data Results & Data ([facility]) Vital Signs (Past 12 Hours) Vital Signs Temp Pulse Pulse Resp BP Pulse Ox O2 Del Method 06/22/22 07:08 91 H 06/22/22 06:29 36.6 C 92 H 18 130/86 96 Room Air 06/22/22 02:52 90 06/22/22 03:00 Nasal Cannula 06/22/22 03:03 36.6 C 95 H 18 148/101 H 95 Room Air 06/22/22 03:03 36.6 C 95 H 18 148/101 H 95 Room Air 06/22/22 00:30 95 H 16 131/95 93 Room Air O2 Flow Rate 06/22/22 07:08 06/22/22 06:29 06/22/22 02:52 06/22/22 03:00 1 06/22/22 03:03 06/22/22 03:03 06/22/22 00:30 Resident Activity Tracking Resident Involvement: Resident Care Provided Care Provided: Adult Hospital Medicine (5) COPD (chronic obstructive pulmonary disease) COPD type: unspecified COPD Qualified Code(s): J44.9 - Chronic obstructive pulmonary disease, unspecified
[2022-06-22] MEDS: HYDROmorphone INJ 0.5 MG/0.5 ML SYR IV PRN ×2 (07:51→12:01)
[2022-06-22] MEDS: LANTUS PER UNIT CHARGE SQ SCH ×2 (08:01→20:16)
[2022-06-22] MEDS: INSULIN ASPART PER UNIT SC SCH ×4 (08:02→20:15)
[2022-06-22] MEDS: FLUTICASONE FUROATE 200MCG 14 PUFFS/INHALER INH SCH (08:05)
[2022-06-22] MEDS: UMECLIDINIUM/VILANTEROL 62.5/25MCG 7 PUFFS/INHALER INH SCH (08:06)
[2022-06-22] MEDS: ACETAMINOPHEN 500 MG TAB PO SCH ×3 (08:06→20:19)
[2022-06-22] MEDS: FUROSEMIDE 40 MG TAB PO SCH (08:06)
[2022-06-22] MEDS: busPIRone 5 MG TAB PO SCH ×3 (08:06→20:16)
[2022-06-22] MEDS: VALSARTAN 80 MG TAB PO SCH (08:06)
[2022-06-22] MEDS: ENOXAPARIN 150 MG/ML SYR SQ SCH (08:07)
[2022-06-22] MEDS: BUPRENORPHINE/NALOXONE 8/2 MG TAB SL SCH ×2 (08:08→20:18)
--- NOTE | 2022-06-22 08:51 | XRay Report ---
XR chest 1V portable HISTORY: Shortness of breath. COMPARISON: Chest 06/12/2022. FINDINGS: No pneumothorax. No pleural effusions. Mild chronic interstitial thickening persists. The h eart remains top normal in size. No evidence for pulmonary edema. No new focal lung consolidations to suggest a pneumonia. An expansile right anterior fourth rib lesion, unchanged. IMPRESSION: 1. No acute process within the chest. 2. Stable expansile right anterior fourth rib lesion. This is better appreciated on the same day ches t CT. ACT 112: Negative or not required by law. Electronically signed by: Chester Salas M.D. 06/22/2022 8:50 AM
[2022-06-22] MEDS ORDERED: NON-FORMULARY MEDICATION (Fluticasone-Umeclidin-Vilanter [Trelegy Ellipta] 200-62.5-25 mcg INH SCH (09:00)
[2022-06-22] MEDS ORDERED: predniSONE 10 MG TABLET PO SCH (09:00)
[2022-06-22 09:03] LABS: Basophils # (auto) 0.06 K/uL (0-0.2); Basophils % (auto) 0.4 %; Eosinophils # (auto) 0.15 K/uL (0-0.50); Hemoglobin 15.4 g/dl (12.0-16.0); Immature Granulocytes # (auto) 0.08 K/uL (0.01-0.20); Immature Granulocytes % (auto) 0.5 %; Lymphocytes # (auto) 2.65 K/uL (1.2-3.4); Lymphocytes % (auto) 17.9 %; Mean Corpuscular Hemoglobin 26.9 pg (25.0-34.0); Mean Corpuscular Hgb Conc 33.5 g/dL (32.0-36.0); Mean Corpuscular Volume 80.4 fL (80.0-100.0); Monocytes # (auto) 0.68 K/uL (0.11-0.59); Monocytes % (auto) 4.6 %; Neutrophils # (auto) 11.16 K/uL (1.40-6.50); Neutrophils % (auto) 75.6 %; Platelet Count 303 K/uL (130-400); RDW Coefficient of Variation 14.6 % (11.5-14.5); RDW Standard Deviation 42.3 fL (36.4-46.3); Red Blood Count 5.72 M/uL (4.20-5.40); White Blood Count 14.78 K/ul (4.8-10.8)
[2022-06-22 09:12] LABS: Albumin Level 4.3 gm/dl (3.4-5.0); Bilirubin,Total 0.6 mg/dl (0.2-1.0); Calcium 9.4 mg/dl (8.5-10.1); Potassium 4.1 mmol/L (3.5-5.1)
[2022-06-22 09:18] LABS: Albumin Globulin Ratio 1.5 (0.9-2); BUN Creatinine Ratio 23.6 (10-20); Creatinine Clr Calc Pharmacy 111.8 ml/min; Est GFR (African American) 117.3 ml/min; Est GFR (Non-African American) 101.2 ml/min; Globulin 2.9 gm/dl (2.5-4.0); Total Protein 7.2 gm/dl (6.0-8.3)
--- NOTE | 2022-06-22 09:42 | CT Scan Report ---
ABDOMEN AND PELVIS CT WITHOUT CONTRAST CT DOSE: HISTORY: Fall. Trauma TECHNIQUE: Multiaxial CT images of the abdomen and pelvis were performed without contrast. A dose lo wering technique was utilized adhering to the principles of ALARA. COMPARISON STUDY: None. FINDINGS: Right anterior rib fractures are better appreciated on the same day chest CT. Mild dependen t changes seen at the lung bases. Prior cholecystectomy. The unenhanced liver, spleen, kidneys, pancr eas, right adrenal gland unremarkable. Mild thickening of the left adrenal gland is likely age-relate d. No retroperitoneal hematoma or lymphadenopathy. Calcified plaque within the normal caliber abdomin al aorta. No pelvic free fluid. Hysterectomy and appendectomy. Normal bladder. No bowel wall thickeni ng or obstruction. Small umbilical hernia containing a short segment of small bowel. Retroperitoneal surgical clips are noted. IMPRESSION: 1. The right anterior rib fractures are better appreciated on the same day chest CT. 2. Otherwise, no acute traumatic process within the abdomen or pelvis. 3. Small umbilical hernia containing a short segment of small bowel. No evidence for bowel obstructio n. ACT 112: Negative or not required by law. Electronically signed by: Chester Salas M.D. 06/22/2022 9:41 AM
--- NOTE | 2022-06-22 09:43 | CT Scan Report ---
MAXILLOFACIAL CT WITHOUT CONTRAST CLINICAL HISTORY: Trauma COMPARISON STUDY: None. TECHNIQUE: A maxillofacial CT was performed without IV contrast. Coronal and sagittal reformats were viewed. Automated exposure control was utilized for the study. A dose lowering technique was utiliz ed adhering to the principles of ALARA. FINDINGS: The globes are intact. There is no retrobulbar hematoma. Age indeterminate nondisplaced gabriela al bone fractures are present. No definite acute facial fractures are present. Alignment of the tempo romandibular joints is anatomic. No acute skull base fracture. Pterygoid plates are intact. IMPRESSION: 1. No definite acute facial fracture. 2. Age indeterminate nondisplaced bilateral nasal bone fractures. ACT 112: Negative or not required by law. Electronically signed by: Hipolito Sevilla M.D. 06/22/2022 9:42 AM
--- NOTE | 2022-06-22 09:50 | CT Scan Report ---
CERVICAL SPINE CT CT DOSE: HISTORY: Trauma TECHNIQUE: Multiaxial CT images of the cervical spine were performed and reformatted in the sagittal and coronal plane without the use of contrast. A dose lowering technique was utilized adhering to th e principles of ALARA. COMPARISON: None. FINDINGS: No fractures. No subluxation. Prevertebral soft tissues and the C1-C2 interval are intact. No pneumothorax. Mild degenerative changes within the cervical spine. There is a benign-appearing williams ent lesion at the T2 vertebral body. IMPRESSION: No fractures within the cervical spine. ACT 112: Negative or not required by law. Electronically signed by: Chester Salas M.D. 06/22/2022 9:48 AM
--- NOTE | 2022-06-22 09:55 | CT Scan Report ---
CT OF THE CHEST WITHOUT IV CONTRAST CLINICAL HISTORY: Trauma COMPARISON STUDY: Chest CT June 12, 2022. Chest radiograph performed earlier today. CT DOSE: 6841.31 mGy.cm TECHNIQUE: Axial images of the chest were obtained without IV contrast. Images were reviewed in the axial, sagittal, and coronal planes. IV contrast was not administered for this examination. Automat ed exposure control was utilized for the study. A dose lowering technique was utilized adhering to t he principles of ALARA. FINDINGS: Thoracic aorta is suboptimally assessed on this unenhanced exam. However, there is no medi astinal hematoma. Mild cardiomegaly is noted with moderate coronary artery calcification. There is mi ld circumferential wall thickening distal esophagus. No pneumothorax or pulmonary contusion is presen t. This exam was compromised given difficulty positioning. There are mild groundglass opacities withi n the lungs which favor atelectasis. Acute nondisplaced fractures anterior right fifth, sixth and sev enth ribs are present. There is no pneumothorax. No acute left rib fractures are present. No acute th oracic spine fracture is noted. Expansile lesion within the anterior right fourth rib is again noted. There is also an indeterminate 1.8 cm lytic lesion within the left aspect of the T2 vertebral body. The abdomen and pelvis CT will be reported separately. IMPRESSION: 1. Acute nondisplaced fractures anterior right fifth, sixth and seventh ribs. No pneumothorax. 2. No additional acute traumatic findings within the chest. Exam mildly compromised given difficulty positioning. 3. Redemonstration of an indeterminate expansile lesion within the right fourth rib and a 1.8 cm lyti c lesion within the T2 vertebral body. A neoplastic process such as myeloma or metastatic disease can not be excluded. ACT 112: Negative or not required by law. Electronically signed by: Hipolito Sevilla M.D. 06/22/2022 9:52 AM
--- NOTE | 2022-06-22 10:52 | Electrocardiogram Report ---
Test Reason : Blood Pressure : / mmHG Vent. Rate : 092 BPM Atrial Rate : 092 BPM P-R Int : 162 ms QRS Dur : 080 ms QT Int : 354 ms P-R-T Axes : 040 -06 037 degrees QTc Int : 437 ms Poor data quality, interpretation may be adversely affected Sinus rhythm Inferior infarct (cited on or before 10-MAY-2022) Anteroseptal infarct (cited on or before 10-MAY-2022) Abnormal ECG When compared with ECG of 12-JUN-2022 16:14, No significant change Confirmed by Jaun Hardin ([id number]) on 06/22/2022 10:52:08 AM Referred By: REFERRED SELF Confirmed By:Juan Hardin
[2022-06-22] MEDS ORDERED: ALBUTEROL 0.083% NEBU SOLN 3 ML VIAL NEB PRN (17:27)
[2022-06-22] MEDS ORDERED: LEVALBUTEROL 0.31MG/3 ML VIAL NEB PRN ×2 (17:57→18:12)
[2022-06-22] MEDS ORDERED: LEVALBUTEROL 1.25MG/0.5ML NEB NEB PRN (18:12)
[2022-06-22] MEDS: QUEtiapine FUMARATE 200 MG TAB PO SCH (20:17)
[2022-06-23] MEDS: HYDROmorphone INJ 1 MG/ML SYRINGE IV PRN ×2 (03:03→07:21)
--- NOTE | 2022-06-23 06:44 | Hospitalist Progress Note ---
Date of Service June 23, 2022 Assessment & Plan (1) Rib fractures: Plan: 62-year-old female with history of COPD, diabetes, multiple myeloma, PE on therapeutic Lovenox and CHF presenting with acute fractures of right ribs 5, 6, and 7 sustained after patient fell in the yard. Hemodynamically stable. Patient is at higher risk for developing complications secondary to presence of 3 rib fractures as well as underlying history of asthma/COPD. She is on therapeutic Lovenox for history of pulmonary embolism in the setting of multiple myeloma/malignancy. No damage to internal structures noted on initial scans. Chronic pain is managed with buprenorphinenaloxone films for history of multiple myeloma. She states that she is prescribed Suboxone by doctor in [place]. - Pain management consulted - Declines lidocaine path as she states it gave her a skin reaction prior Tylenol 1 g p.o. 3 times daily - oxycodone for mild breakthrough pain and Dilaudid for severe pain Perform oral hygiene every 4 hours Incentive spirometry every hour Supplemental oxygen as needed (2) Nasal fracture: Plan: - CT face noted nondisplaced bilateral nasal bone fractures - Denies trouble breathing (3) Multiple myeloma: Plan: Patient with multiple myeloma status post stem cell treatment in 2013. She follows with a physician at [facility] near her hometown [facility]. She is presently not undergoing any treatment for her multiple myeloma. Continue buprenorphinenaloxone for pain management (4) CHF (congestive heart failure): Plan: Heart failure with preserved EF. Last echo performed on 06/13/2022 with normal L V size. Mild concentric LVH. EF 60 to 65% with no regional wall motion abnormalities. Grossly normal RV size and function. No significant valvular pathology. Small pericardial effusion present Continue Lasix 40 mg p.o. daily (5) COPD (chronic obstructive pulmonary disease): Plan: Patient with recent exacerbation of COPD. Presently does not seem to be in acute exacerbation. She is at high risk for respiratory compromise given her recent fall, rib fractures x3 and history of COPD/asthma Continue ipratropium bromide Continue Xopenex Continue Trelegy or formulary equivalent Supplemental oxygen as needed to maintain saturations of 93% on 1L Prednisone taper from prior admission was completed on 06/22 Patient is to be on supplemental oxygen at night but reports she did not bring her tank to her sister's house. Should be discharged with home oxygen if appropriate (6) History of pulmonary embolism: Plan: Patient with history of pulmonary embolism. She is presently on Lovenox therapeutic dose Continue Lovenox 150 mg subcutaneously daily Monitor closely for evidence of bleeding given patient's recent trauma Continue to trend CBC (7) Diabetes: Plan: Poorly controlled with last hemoglobin A1c on 05/15/2022 = 9.3 Increase Lantus to 15 BID Insulin sliding scale Goal blood sugar [id number] (8) Anxiety: Plan: Patient with anxiety. Continue Seroquel 20 mg p.o. nightly Continue buspirone 10 mg p.o. 3 times daily Continue Xanax 0.25 mg p.o. twice daily as needed FENHep-Lock, consistent carb/heart healthy diet as tolerated Prophylaxiscontinue Lovenox 150 mg subcutaneously daily [place]ef[place] Admission and Anticipated Discharge Date Admission Date: June 22, 2022 Subjective Janae states that she is still having pain on her right side. Heat has been helpful. Hurts to take a deep breath. Has been using incentive spirometer. Review of Systems Review of Systems: As per above Physical Exam Physical Exam: Constitutional: well-appearing, no acute distress HEENT: NCAT, no conjunctival injection CV: regular rhythm, no murmur appreciated, extremities well-perfused, no LE edema Resp: CTABL, no wheezes/rales/rhonchi appreciated, no increased work of breath ing GI: soft, nondistended, nontender, BS normoactive MSK: pain over right ant/post ribs Skin: warm, dry, no rash appreciated Neuro: alert, oriented, no focal neurologic deficit appreciated Results & Data Results & Data ([facility]) Vital Signs (Past 12 Hours) Vital Signs Temp Pulse Pulse Resp BP BP Pulse Ox 06/23/22 06:40 36.8 C 93 H 18 129/87 95 06/23/22 03:00 36.7 C 93 H 14 158/83 H 92 06/22/22 22:00 108 H 06/22/22 23:07 36.4 C L 90 12 141/95 H 94 06/22/22 20:00 06/22/22 20:18 36.6 C 94 H 18 134/89 92 O2 Del Method O2 Flow Rate 06/23/22 06:40 Nasal Cannula 1 06/23/22 03:00 Nasal Cannula 1 06/22/22 22:00 06/22/22 23:07 Room Air 06/22/22 20:00 Room Air, Nasal Cannula 1 06/22/22 20:18 Room Air Resident Activity Tracking Resident Involvement: Resident Care Provided Care Provided: Adult Hospital Medicine (1) Rib fractures Encounter type: initial encounter Fracture type: closed Laterality: right Qualified Code(s): S22.41XA - Multiple fractures of ribs, right side, initial encounter for closed fracture (3) Multiple myeloma Multiple myeloma remission status: unspecified Qualified Code(s): C90.00 - Multiple myeloma not having achieved remission (5) COPD (chronic obstructive pulmonary disease) COPD type: unspecified COPD Qualified Code(s): J44.9 - Chronic obstructive pulmonary disease, unspecified
[2022-06-23] MEDS: LEVALBUTEROL HCL 1.25 MG/3 ML NEB NEB PRN ×3 (06:59→19:51)
[2022-06-23] MEDS: ALPRAZolam 0.25 MG TABLET PO PRN ×3 (07:40→19:22)
[2022-06-23 07:42] LABS: Hematocrit (blood only) 46.1 % (37.0-47.0); Hemoglobin 15.1 g/dl (12.0-16.0); Mean Corpuscular Hemoglobin 26.8 pg (25.0-34.0); Mean Corpuscular Hgb Conc 32.8 g/dL (32.0-36.0); Mean Corpuscular Volume 81.9 fL (80.0-100.0); Mean Platelet Volume 9.4 fL (9.4-12.4); Platelet Count 281 K/uL (130-400); RDW Coefficient of Variation 14.6 % (11.5-14.5); Red Blood Count 5.63 M/uL (4.20-5.40)
[2022-06-23 07:52] LABS: Albumin Level 4.1 gm/dl (3.4-5.0); BUN Creatinine Ratio 26.2 (10-20); Bilirubin,Total 0.6 mg/dl (0.2-1.0); Calcium 9.4 mg/dl (8.5-10.1); Creatinine Clr Calc Pharmacy 94.5 ml/min; Est GFR (African American) 111.1 ml/min; Est GFR (Non-African American) 95.8 ml/min; Potassium 3.9 mmol/L (3.5-5.1); Total Protein 7.1 gm/dl (6.0-8.3)
[2022-06-23] MEDS: VALSARTAN 80 MG TAB PO SCH (07:55)
[2022-06-23] MEDS: ACETAMINOPHEN 500 MG TAB PO SCH ×3 (07:55→23:09)
[2022-06-23] MEDS: ENOXAPARIN 150 MG/ML SYR SQ SCH (07:55)
[2022-06-23] MEDS: busPIRone 5 MG TAB PO SCH ×3 (07:55→21:02)
[2022-06-23] MEDS: FLUTICASONE FUROATE 200MCG 14 PUFFS/INHALER INH SCH (07:55)
[2022-06-23] MEDS: FUROSEMIDE 40 MG TAB PO SCH (07:55)
[2022-06-23] MEDS: INSULIN ASPART PER UNIT SC SCH ×4 (07:56→21:00)
[2022-06-23] MEDS: UMECLIDINIUM/VILANTEROL 62.5/25MCG 7 PUFFS/INHALER INH SCH (07:56)
[2022-06-23] MEDS: LANTUS PER UNIT CHARGE SQ SCH ×2 (07:57→20:59)
[2022-06-23] MEDS: BUPRENORPHINE/NALOXONE 8/2 MG TAB SL SCH ×2 (08:01→21:02)
[2022-06-23] MEDS ORDERED: oxyCODONE/ACETAMINOPHEN 5mg/325mg TAB PO PRN (09:33)
[2022-06-23] MEDS: HYDROmorphone INJ 0.5 MG/0.5 ML SYR IV PRN ×3 (12:16→20:57)
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
[2022-06-23] MEDS ORDERED: oxyCODONE HCL IR 5 MG TAB (IMMEDIATE RELEASE) PO STA (17:23)
--- NOTE | 2022-06-23 19:18 | Billing Data ---
Date of Service June 23, 2022 Coding Level of Care Code 19012 SUB INP/OBS CARE MIN
[2022-06-23] MEDS: QUEtiapine FUMARATE 200 MG TAB PO SCH (21:02)
[2022-06-23] MEDS ORDERED: NALOXONE HCL 0.4 MG/1 ML VIAL/CARP IV PRN (21:25)
[2022-06-23] MEDS ORDERED: oxyCODONE HCL IR 5 MG TAB (IMMEDIATE RELEASE) PO PRN (21:30)
[2022-06-23] MEDS: oxyCODONE HCL IR 5 MG TAB (IMMEDIATE RELEASE) PO PRN (23:10)
[2022-06-24] MEDS: HYDROmorphone INJ 0.5 MG/0.5 ML SYR IV PRN ×5 (03:58→22:59)
[2022-06-24] MEDS: ALPRAZolam 0.25 MG TABLET PO PRN ×4 (03:58→22:59)
[2022-06-24] MEDS: LEVALBUTEROL HCL 1.25 MG/3 ML NEB NEB PRN ×3 (04:16→14:14)
[2022-06-24 07:19] LABS: Basophils # (auto) 0.08 K/uL (0-0.2); Basophils % (auto) 0.6 %; Eosinophils # (auto) 0.32 K/uL (0-0.50); Eosinophils % (auto) 2.5 %; Hematocrit (blood only) 46.5 % (37.0-47.0); Hemoglobin 14.9 g/dl (12.0-16.0); Immature Granulocytes # (auto) 0.06 K/uL (0.01-0.20); Immature Granulocytes % (auto) 0.5 %; Lymphocytes # (auto) 3.37 K/uL (1.2-3.4); Lymphocytes % (auto) 26.7 %; Mean Corpuscular Hemoglobin 26.4 pg (25.0-34.0); Mean Corpuscular Volume 82.4 fL (80.0-100.0); Mean Platelet Volume 9.7 fL (9.4-12.4); Monocytes # (auto) 0.72 K/uL (0.11-0.59); Monocytes % (auto) 5.7 %; Neutrophils # (auto) 8.08 K/uL (1.40-6.50); Platelet Count 281 K/uL (130-400); RDW Coefficient of Variation 14.6 % (11.5-14.5); RDW Standard Deviation 43.2 fL (36.4-46.3); Red Blood Count 5.64 M/uL (4.20-5.40); White Blood Count 12.63 K/ul (4.8-10.8)
[2022-06-24] MEDS: ACETAMINOPHEN 500 MG TAB PO SCH ×3 (07:36→22:26)
[2022-06-24] MEDS: oxyCODONE HCL IR 5 MG TAB (IMMEDIATE RELEASE) PO PRN ×3 (07:36→20:38)
[2022-06-24 07:38] LABS: Albumin Globulin Ratio 1.4 (0.9-2); Albumin Level 4.2 gm/dl (3.4-5.0); Bilirubin,Total 0.5 mg/dl (0.2-1.0); Calcium 9.4 mg/dl (8.5-10.1); Creatinine Clr Calc Pharmacy 81.9 ml/min; Est GFR (African American) 99.7 ml/min; Globulin 3.1 gm/dl (2.5-4.0); Potassium 4.1 mmol/L (3.5-5.1); Total Protein 7.3 gm/dl (6.0-8.3)
[2022-06-24] MEDS: IPRATROPIUM BROMIDE NEB SOLN 0.02% 2.5 ML VIAL NEB PRN ×2 (07:59→14:14)
[2022-06-24] MEDS ORDERED: POLYETHYLENE (MIRALAX) 17 GM PACK PO SCH ×2 (09:00→21:00)
[2022-06-24] MEDS: LANTUS PER UNIT CHARGE SQ SCH ×2 (09:43→20:41)
[2022-06-24] MEDS: INSULIN ASPART PER UNIT SC SCH ×4 (09:44→20:41)
[2022-06-24] MEDS: BUPRENORPHINE/NALOXONE 8/2 MG TAB SL SCH ×2 (09:45→20:38)
[2022-06-24] MEDS: FLUTICASONE FUROATE 200MCG 14 PUFFS/INHALER INH SCH (09:45)
[2022-06-24] MEDS: ENOXAPARIN 150 MG/ML SYR SQ SCH (09:46)
[2022-06-24] MEDS: FUROSEMIDE 40 MG TAB PO SCH (09:46)
[2022-06-24] MEDS: UMECLIDINIUM/VILANTEROL 62.5/25MCG 7 PUFFS/INHALER INH SCH (09:46)
[2022-06-24] MEDS: busPIRone 5 MG TAB PO SCH ×3 (09:46→20:39)
[2022-06-24] MEDS: VALSARTAN 80 MG TAB PO SCH (09:47)
--- NOTE | 2022-06-24 09:50 | Hospitalist Progress Note ---
Date of Service June 24, 2022 Assessment & Plan (1) Rib fractures: Plan: 62-year-old female with history of COPD, diabetes, multiple myeloma, PE on therapeutic Lovenox and CHF presenting with acute fractures of right ribs 5, 6, and 7 sustained after patient fell in the yard. Hemodynamically stable. Patient is at higher risk for developing complications secondary to presence of 3 rib fractures as well as underlying history of asthma/COPD. She is on therapeutic Lovenox for history of pulmonary embolism in the setting of multiple myeloma/malignancy. No damage to internal structures noted on initial scans. Chronic pain is managed with buprenorphinenaloxone films for history of multiple myeloma. She states that she is prescribed Suboxone by doctor in [place]. - Pain management consulted - Declines lidocaine path as she states it gave her a skin reaction prior Tylenol 1 g p.o. 3 times daily - oxycodone for mild breakthrough pain and Dilaudid for severe pain with goal to wean Dilaudid and move towards PO pain regimen for home Perform oral hygiene every 4 hours Incentive spirometry every hour Supplemental oxygen as needed (2) Nasal fracture: Plan: - CT face noted nondisplaced bilateral nasal bone fractures - Denies trouble breathing (3) Multiple myeloma: Plan: Patient with multiple myeloma status post stem cell treatment in 2013. She follows with a physician at [facility] near her hometown of [place]. She is presently not undergoing any treatment for her multiple myeloma. Continue buprenorphinenaloxone for pain management (4) CHF (congestive heart failure): Plan: Heart failure with preserved EF. Last echo performed on 06/13/2022 with normal LV size. Mild concentric LVH. EF 60 to 65% with no regional wall motion abnormalities. Grossly normal RV size and function. No significant valvular pathology. Small pericardial effusion present Continue Lasix 40 mg p.o. daily (5) COPD (chronic obstructive pulmonary disease): Plan: Patient with recent exacerbation of COPD. Presently does not seem to be in acute exacerbation. She is at high risk for respiratory compromise given her recent fall, rib fractures x3 and history of COPD/asthma Continue ipratropium bromide Continue Xopenex Continue Trelegy or formulary equivalent Supplemental oxygen as needed to maintain saturations of 93% on 1L Prednisone taper from prior admission was completed on 06/22 Patient is to be on supplemental oxygen at night but reports she did not bring her tank to her sister's house. Should be discharged with home oxygen if appropriate (6) History of pulmonary embolism: Plan: Patient with history of pulmonary embolism. She is presently on Lovenox therapeutic dose Continue Lovenox 150 mg subcutaneously daily Hemoglobin has been stable; Continue to trend CBC (7) Diabetes: Plan: Poorly controlled with last hemoglobin A1c on 05/15/2022 = 9.3 Increase Lantus to 20 BID Insulin sliding scale. CF= 20, CR= 12 Goal blood sugar [id number] (8) Anxiety: Plan: Patient with anxiety. Continue Seroquel 20 mg p.o. nightly Continue buspirone 10 mg p.o. 3 times daily Home dose Xanax 0.25 mg p.o. twice daily as needed; increase to QID given acute stress FENHep-Lock, consistent carb/heart healthy diet as tolerated Prophylaxiscontinue Lovenox 150 mg subcutaneously daily [place]efull Admission and Anticipated Discharge Date Admission Date: June 22, 2022 Supervising Physician Co-Signing Physician Notes I personally examined the patient and verified all rosario points of history and exam, discussed case, and agree with decision making with Dr Trevizo Pain still fairly bad, but seems to be improving inasmuch as she has been using incentive spirometry more and was able to walk around more. Worried about how she is going to do going home. Discussed a lot focusing on her concerns stemming largely from situational anxiety. Also discussed getting in contact with her Suboxone physician to ensure that pain medicines at discharge do not violate any type of narcotics contract -- Dr Portillo [phone], [phone] vitals noted nad breathing unlabored with faint expiratory wheeze a little bit of an upper airway wheeze, diminished breath sounds on the right, but after incentive spirometry better. Of note air entry is diminished throughout, just disproportionately quieter on the right, but does improve after incentive spirom etry. contiguous fracture ribs 5-7 - from fall. Previously discussed high probability of osteopenia/porosis. notes she had DEXA back home and will follow up after. pain control -continue on oxycodone 10 mg, Dilaudid for breakthrough, hopefully will be able to wean Dilaudid and get rid of it fairly soon. Almost certainly will need some degree of short acting pain medicine at dischargewe will need to discuss with her Suboxone physician so that we do not accidentally have her violate any type of a pain contract. Related to anxiety - discussed risks w benzos and dependency but also aware that current situation is acutely high anxiety for a number of reasons. Also provided a lot of active reassurance otherwise as above Subjective Still having rib pain, similar to yesterday. Also notes some B/L knee pain and subjective swelling of her LE. Still having facial pain. Is eating and drinking ok. No BM since admission. Review of Systems Review of Systems: As per above Physical Exam Physical Exam: Constitutional: well-appearing, no acute distress HEENT: NCAT, no conjunctival injection CV: regular rhythm, no murmur appreciated, extremities well-perfused, no LE edema Resp: CTABL, no wheezes/rales/rhonchi appreciated, no increased work of breathing GI: soft, nondistended, nontender, BS normoactive MSK: pain over right ant/post ribs Skin: warm, dry, no rash appreciated Neuro: alert, oriented, no focal neurologic deficit appreciated Results & Data Results & Data ([facility]) Vital Signs (Past 12 Hours) Vital Signs Temp Pulse Resp BP BP Pulse Ox O2 Del Method 06/24/22 07:59 86 18 95 Nasal Cannula 06/24/22 07:48 37.1 C 100 H 20 135/91 96 Nasal Cannula 06/24/22 07:40 Nasal Cannula 06/24/22 04:21 101 H 18 96 Room Air 06/24/22 03:48 36.9 C 89 18 142/89 H 95 Room Air 06/23/22 23:38 Nasal Cannula O2 Flow Rate 06/24/22 07:59 2 06/24/22 07:48 2.5 06/24/22 07:40 2 06/24/22 04:21 06/24/22 03:48 06/23/22 23:38 2 Resident Activity Tracking Resident Involvement: Resident Care Provided Care Provided: Adult Hospital Medicine (1) Rib fractures Encounter type: initial encounter Fracture type: closed Laterality: right Qualified Code(s): S22.41XA - Multiple fractures of ribs, right side, initial encounter for closed fracture (3) Multiple myeloma Multiple myeloma remission status: unspecified Qualified Code(s): C90.00 - Multiple myeloma not having achieved remission (5) COPD (chronic obstructive pulmonary disease) COPD type: unspecified COPD Qualified Code(s): J44.9 - Chronic obstructive pulmonary disease, unspecified
--- NOTE | 2022-06-24 19:30 | Billing Data ---
Date of Service June 24, 2022 Coding Level of Care Code 16731 SUB INP/OBS CARE MIN
[2022-06-24] MEDS: QUEtiapine FUMARATE 200 MG TAB PO SCH (20:39)
[2022-06-24] MEDS: DOCUSATE SODIUM 100 MG CAP PO SCH (20:40)
[2022-06-25] MEDS: oxyCODONE HCL IR 5 MG TAB (IMMEDIATE RELEASE) PO PRN ×3 (05:38→19:31)
[2022-06-25] MEDS: HYDROmorphone INJ 0.5 MG/0.5 ML SYR IV PRN ×4 (06:40→20:38)
[2022-06-25] MEDS: IPRATROPIUM BROMIDE NEB SOLN 0.02% 2.5 ML VIAL NEB PRN ×3 (07:06→19:50)
[2022-06-25] MEDS: LEVALBUTEROL HCL 1.25 MG/3 ML NEB NEB PRN ×3 (07:06→19:49)
[2022-06-25 07:37] LABS: Hematocrit (blood only) 45.3 % (37.0-47.0); Hemoglobin 14.4 g/dl (12.0-16.0); Mean Corpuscular Hemoglobin 26.7 pg (25.0-34.0); Mean Corpuscular Hgb Conc 31.8 g/dL (32.0-36.0); Mean Corpuscular Volume 83.9 fL (80.0-100.0); Mean Platelet Volume 9.8 fL (9.4-12.4); Platelet Count 299 K/uL (130-400); RDW Coefficient of Variation 14.8 % (11.5-14.5); RDW Standard Deviation 44.5 fL (36.4-46.3); White Blood Count 12.17 K/ul (4.8-10.8)
[2022-06-25 07:59] LABS: BUN Creatinine Ratio 29.6 (10-20); Calcium 9.5 mg/dl (8.5-10.1); Creatinine Clr Calc Pharmacy 75.9 ml/min; Est GFR (African American) 90.9 ml/min; Est GFR (Non-African American) 78.4 ml/min; Potassium 4.4 mmol/L (3.5-5.1)
--- NOTE | 2022-06-25 07:59 | Hospitalist Progress Note ---
Date of Service June 25, 2022 Assessment & Plan (1) Rib fractures: Plan: 62-year-old female with history of COPD, diabetes, multiple myeloma, PE on therapeutic Lovenox and CHF presenting with acute fractures of right ribs 5, 6, and 7 sustained after patient fell in the yard. Hemodynamically stable. Patient is at higher risk for developing complications secondary to presence of 3 rib fractures as well as underlying history of asthma/COPD. She is on therapeutic Lovenox for history of pulmonary embolism in the setting of multiple myeloma/malignancy. No damage to internal structures noted on initial scans. Chronic pain is managed with buprenorphinenaloxone films for history of multiple myeloma. She states that she is prescribed Suboxone by doctor in [place]. - Pain management consulted - Declines lidocaine path as she states it gave her a skin reaction prior Tylenol 1 g p.o. 3 times daily - oxycodone for mild breakthrough pain and Dilaudid for severe pain with goal to wean Dilaudid and move towards PO pain regimen for home. Will plan to transition to oral pain medications starting tommorrow morning. Perform oral hygiene every 4 hours Incentive spirometry every hour Supplemental oxygen as needed (2) Nasal fracture: Plan: - CT face noted nondisplaced bilateral nasal bone fractures - Denies trouble breathing (3) Right knee pain: Plan: - X-ray of right knee with swelling, no fracture. (4) Multiple myeloma: Plan: Patient with multiple myeloma status post stem cell treatment in 2013. She follows with a physician at [facility] near her hometown of [facility]. She is presently not undergoing any treatment for her multiple myeloma. Continue buprenorphinenaloxone for pain management (5) CHF (congestive heart failure): Plan: Heart failure with preserved EF. Last echo performed on 06/13/2022 with normal LV size. Mild concentric LVH. EF 60 to 65% with no regional wall motion abnormalities. Grossly normal RV size and function. No significant valvular pathology. Small pericardial effusion present Continue Lasix 40 mg p.o. daily (6) COPD (chronic obstructive pulmonary disease): Plan: Patient with recent exacerbation of COPD. Presently does not seem to be in acute exacerbation. She is at high risk for respiratory compromise given her recent fall, rib fractures x3 and history of COPD/asthma Continue ipratropium bromide Continue Xopenex Continue Trelegy or formulary equivalent Supplemental oxygen as needed to maintain saturations of 93% on 1L Prednisone taper from prior admission was completed on 06/22 Patient is to be on supplemental oxygen at night but reports she did not bring her tank to her sister's house. Should be discharged with home oxygen if appropriate (7) History of pulmonary embolism: Plan: Patient with history of pulmonary embolism. She is presently on Lovenox therapeutic dose Continue Lovenox 150 mg subcutaneously daily Hemoglobin has been stable; Continue to trend CBC (8) Diabetes: Plan: Poorly controlled with last hemoglobin A1c on 05/15/2022 = 9.3 Increase Lantus to 20 BID Insulin sliding scale. CF= 20, CR= 7 Goal blood sugar [id number] (9) Anxiety: Plan: Patient with anxiety. Continue Seroquel 20 mg p.o. nightly Continue buspirone 10 mg p.o. 3 times daily Home dose Xanax 0.25 mg p.o. twice daily as needed; increase to QID given acute stress FENHep-Lock, consistent carb/heart healthy diet as tolerated Prophylaxiscontinue Lovenox 150 mg subcutaneously daily [place]efull Admission and Anticipated Discharge Date Admission Date: June 22, 2022 Supervising Physician Co-Signing Physician Notes I personally examined the patient and verified all rosario points of history and exam, discussed case, and agree with decision making with Dr Trevizo Trying to sleep in bed some, but was too uncomfortable. Is walking the halls some. Desaturated some. Right knee pain persistsreviewed x-ray with patient in the room. Discussed with her Suboxone clinicthere will be no violation of her contract/care if we prescribe opiates at discharge while she is healing from the rib fractures. vitals noted nad breathing unlabored no accessory muscle use good effort. Occasional wincing in pain that alleviates quickly, sometimes alleviates with incentive spirometry. Normal gait. Knee with mild bruising, no bony tend erness. CBC, BMP, knee x-ray reviewed. contiguous fracture ribs 5-7 - from fall. Previously discussed high probability of osteopenia/porosis. notes she had DEXA back home and will follow up after. pain control -continue on oxycodone 10 mg, wean Dilaudid. Almost certainly will need some degree of short acting pain medicine at dischargediscussed with Suboxone clinic and this will be okay. Related to anxiety -has multiple times discussed risks w benzos and dependency but also aware that current situation is acutely high anxiety for a number of reasons. Also provided a lot of active reassurance once again otherwise as above Subjective Rib pain starting to improve. Complaining of right knee pain. Started 2 days ago, worse with movement. States it's still hard to take a deep breath. Review of Systems Review of Systems: As per above Physical Exam Physical Exam: Constitutional: well-appearing, no acute distress HEENT: NCAT, no conjunctival injection CV: regular rhythm, no murmur appreciated, extremities well-perfused, no LE edema Resp: CTABL, no wheezes/rales/rhonchi appreciated, no increased work of breathing GI: soft, nondistended, nontender, BS normoactive MSK: pain over right ant/post ribs. Mild swelling of right knee. Strength 5/5 in LE. Skin: warm, dry, no rash appreciated Neuro: alert, oriented, no focal neurologic deficit appreciated Results & Data Results & Data ([facility]) Vital Signs (Past 12 Hours) Vital Signs Temp Pulse Resp BP Pulse Ox O2 Del Method 06/24/22 23:41 96 H 115/66 06/24/22 21:35 37.0 C 98 H 18 103/74 95 Room Air Resident Activity Tracking Resident Involvement: Resident Care Provided Care Provided: Adult Hospital Medicine (1) Rib fractures Encounter type: initial encounter Fracture type: closed Laterality: right Qualified Code(s): S22.41XA - Multiple fractures of ribs, right side, initial encounter for closed fracture (4) Multiple myeloma Multiple myeloma remission status: unspecified Qualified Code(s): C90.00 - Multiple myeloma not having achieved remission (6) COPD (chronic obstructive pulmonary disease) COPD type: unspecified COPD Qualified Code(s): J44.9 - Chronic obstructive pulmonary disease, unspecified
[2022-06-25] MEDS: FLUTICASONE FUROATE 200MCG 14 PUFFS/INHALER INH SCH (08:07)
[2022-06-25] MEDS: UMECLIDINIUM/VILANTEROL 62.5/25MCG 7 PUFFS/INHALER INH SCH (08:08)
[2022-06-25] MEDS: POLYETHYLENE (MIRALAX) 17 GM PACK PO SCH ×2 (08:09→15:45)
[2022-06-25] MEDS: FUROSEMIDE 40 MG TAB PO SCH (08:10)
[2022-06-25] MEDS: busPIRone 5 MG TAB PO SCH ×3 (08:10→19:31)
[2022-06-25] MEDS: VALSARTAN 80 MG TAB PO SCH (08:11)
[2022-06-25] MEDS: ENOXAPARIN 150 MG/ML SYR SQ SCH (08:11)
[2022-06-25] MEDS: ACETAMINOPHEN 500 MG TAB PO SCH ×3 (08:15→22:01)
[2022-06-25] MEDS: BUPRENORPHINE/NALOXONE 8/2 MG TAB SL SCH ×2 (08:16→22:01)
[2022-06-25] MEDS: LANTUS PER UNIT CHARGE SQ SCH ×2 (08:40→20:43)
[2022-06-25] MEDS: INSULIN ASPART PER UNIT SC SCH ×4 (08:40→20:36)
[2022-06-25] MEDS: ALPRAZolam 0.25 MG TABLET PO PRN (08:47)
--- NOTE | 2022-06-25 12:10 | XRay Report ---
XR knee RT 1 or 2V routine HISTORY: 62 years-old Female Pain in right knee after fall acute right knee pain status post fall COMPARISON: None TECHNIQUE: 2 views of the right knee FINDINGS: Minimal tricompartmental osteoarthritis. Arterial calcifications are noted within the region of the t ibial tuberosity. Circumferential soft tissue swelling of the knee is mild to moderate. No acute frac ture, dislocation or large joint effusion. IMPRESSION: 1. Soft tissue swelling without acute fracture or dislocation. 2. Mild osteoarthritis. ACT 112: Negative or not required by law. The above report was generated using voice recognition software. It may contain grammatical, syntax o r spelling errors. Electronically signed by: Avi Leon M.D. 06/25/2022 12:08 PM
[2022-06-25] MEDS: bisacodyL 5 MG TABEC PO PRN (15:48)
[2022-06-25] MEDS: DOCUSATE SODIUM 100 MG CAP PO SCH (19:32)
[2022-06-25] MEDS: QUEtiapine FUMARATE 200 MG TAB PO SCH (19:32)
--- NOTE | 2022-06-25 20:13 | Billing Data ---
Date of Service June 25, 2022 Coding Level of Care Code 57748 SUB INP/OBS CARE MIN
[2022-06-26] MEDS: oxyCODONE HCL IR 5 MG TAB (IMMEDIATE RELEASE) PO PRN ×4 (03:10→23:26)
[2022-06-26] MEDS: LEVALBUTEROL HCL 1.25 MG/3 ML NEB NEB PRN ×3 (03:36→19:15)
[2022-06-26] MEDS: IPRATROPIUM BROMIDE NEB SOLN 0.02% 2.5 ML VIAL NEB PRN ×2 (03:37→19:15)
[2022-06-26] MEDS: HYDROmorphone INJ 0.5 MG/0.5 ML SYR IV PRN (05:21)
[2022-06-26] MEDS: ACETAMINOPHEN 500 MG TAB PO SCH ×3 (06:02→23:23)
[2022-06-26] MEDS: ALPRAZolam 0.25 MG TABLET PO PRN ×3 (08:08→19:43)
[2022-06-26] MEDS: FUROSEMIDE 40 MG TAB PO SCH (08:09)
[2022-06-26] MEDS: VALSARTAN 80 MG TAB PO SCH (08:09)
[2022-06-26] MEDS: busPIRone 5 MG TAB PO SCH ×3 (08:09→20:01)
[2022-06-26] MEDS: FLUTICASONE FUROATE 200MCG 14 PUFFS/INHALER INH SCH (08:10)
[2022-06-26] MEDS: POLYETHYLENE (MIRALAX) 17 GM PACK PO SCH (08:10)
[2022-06-26] MEDS: UMECLIDINIUM/VILANTEROL 62.5/25MCG 7 PUFFS/INHALER INH SCH (08:11)
[2022-06-26] MEDS: ENOXAPARIN 150 MG/ML SYR SQ SCH (08:11)
[2022-06-26] MEDS: BUPRENORPHINE/NALOXONE 8/2 MG TAB SL SCH ×2 (08:14→23:23)
[2022-06-26] MEDS: bisacodyL 5 MG TABEC PO PRN (08:14)
--- NOTE | 2022-06-26 08:26 | Hospitalist Progress Note ---
Date of Service June 26, 2022 Assessment & Plan (1) Rib fractures: Plan: 62-year-old female with history of COPD, diabetes, multiple myeloma, PE on therapeutic Lovenox and CHF presenting with acute fractures of right ribs 5, 6, and 7 sustained after patient fell in the yard. Hemodynamically stable. Patient is at higher risk for developing complications secondary to presence of 3 rib fractures as well as underlying history of asthma/COPD. She is on therapeutic Lovenox for history of pulmonary embolism in the setting of multiple myeloma/malignancy. No damage to internal structures noted on initial scans. Chronic pain is managed with buprenorphinenaloxone films for history of multiple myeloma. She states that she is prescribed Suboxone by doctor in [place]. - Pain management consulted - Declines lidocaine path as she states it gave her a skin reaction prior Tylenol 1 g p.o. 3 times daily - Plan for pain management with 10mg oxycodone today, with hopes of moving towards mo Perform oral hygiene every 4 hours Incentive spirometry every hour Supplemental oxygen as needed (2) Nasal fracture: Plan: - CT face noted nondisplaced bilateral nasal bone fractures - Denies trouble breathing (3) Right knee pain: Plan: - X-ray of right knee with swelling, no fracture. (4) Multiple myeloma: Plan: Patient with multiple myeloma status post stem cell treatment in 2013. She follows with a physician at [facility] near her hometown of [facility]. She is presently not undergoing any treatment for her multiple myeloma. Continue buprenorphinenaloxone for pain management (5) CHF (congestive heart failure): Plan: Heart failure with preserved EF. Last echo performed on 06/13/2022 with normal LV size. Mild concentric LVH. EF 60 to 65% with no regional wall motion abnormalities. Grossly normal RV size and function. No significant valvular pathology. Small pericardial effusion present Continue Lasix 40 mg p.o. daily (6) COPD (chronic obstructive pulmonary disease): Plan: Patient with recent exacerbation of COPD. Presently does not seem to be in acute exacerbation. She is at high risk for respiratory compromise given her recent fall, rib fractures x3 and history of COPD/asthma Continue ipratropium bromide Continue Xopenex Continue Trelegy or formulary equivalent Prednisone taper from prior admission was completed on 06/22 Patient is to be on supplemental oxygen at night but reports she did not bring her tank to her sister's house. Should be discharged with home oxygen if appropriate (7) History of pulmonary embolism: Plan: Patient with history of pulmonary embolism. She is presently on Lovenox therapeutic dose Continue Lovenox 150 mg subcutaneously daily Hemoglobin has been stable; Continue to trend CBC (8) Diabetes: Plan: Poorly controlled with last hemoglobin A1c on 05/15/2022 = 9.3 Increase Lantus to 20 BID Insulin sliding scale. CF= 20, CR= 7 Goal blood sugar [id number] (9) Anxiety: Plan: Patient with anxiety. Continue Seroquel 20 mg p.o. nightly Continue buspirone 10 mg p.o. 3 times daily Home dose Xanax 0.25 mg p.o. twice daily as needed; increase to QID given acute stress FENHep-Lock, consistent carb/heart healthy diet as tolerated Prophylaxiscontinue Lovenox 150 mg subcutaneously daily [place]efull Admission and Anticipated Discharge Date Admission Date: June 22, 2022 Supervising Physician Co-Signing Physician Notes I personally examined the patient and verified all rosario points of history and exam, discussed case, and agree with decision making with Dr Trevizo Pain improving a little. Still fairly bad. Worse at bedtime. Notes that anxiety certainly plays a role in pain as well. Knee pain still a bother 2. vitals noted nad breathing unlabored no accessory muscle use good effort. Occasional wincing in pain that alleviates quickly, sometimes alleviates with incentive spirometry. Normal gait. Knee with mild bruising, no bony tenderness. CBC, BMP, knee x-ray reviewed. contiguous fracture ribs 5-7 - from fall. Previously discussed high probability of osteopenia/porosis. notes she had DEXA back home and will follow up after. pain control -continue on oxycodone 10 mg, holding Dilaudid, trial of oxycodone scheduled at bedtime in addition to as needed. Almost certainly will need some degree of short acting pain medicine at dischargediscussed with Suboxone clinic on 06/25/2022 and this will be okay. Related to anxiety -has multiple times discussed risks w benzos and dependency but also aware that current situation is acutely high anxiety for a number of reasons, I did applaud her realizing that anxiety can amplify pain, and while she remedied this with a dose of alprazolam, I applauded her insight and realizing how much mind/body comes into play with anxiety, pain, and the interplay between the 2.. Also provided a lot of active reassurance once again otherwise as above. hopefully home soon Subjective Rib pain is slowly improving. Still having some trouble sleeping. Has been able to get up and walk in the halls. Review of Systems Review of Systems: As per above Physical Exam Physical Exam: Constitutional: well-appearing, no acute distress HEENT: NCAT, no conjunctival injection CV: regular rhythm, no murmur appreciated, extremities well-perfused, no LE edema Resp: CTABL, no wheezes/rales/rhonchi appreciated, no increased work of breathing Skin: warm, dry, no rash appreciated Neuro: alert, oriented, no focal neurologic deficit appreciated Results & Data Results & Data ([facility]) Vital Signs (Past 12 Hours) Vital Signs Temp Pulse Resp BP Pulse Ox O2 Del Method O2 Flow Rate 06/26/22 07:52 36.8 C 87 16 138/94 98 Nasal Cannula 2 06/26/22 03:37 91 H 18 94 Room Air 06/25/22 21:57 36.5 C 113 H 14 132/86 96 Room Air 06/25/22 21:45 36.4 C L 111 H 18 130/97 94 Room Air 06/25/22 20:27 36.8 C 100 H 18 126/81 93 Room Air Resident Activity Tracking Resident Involvement: Resident Care Provided Care Provided: Adult Hospital Medicine (1) Rib fractures Encounter type: initial encounter Fracture type: closed Laterality: right Qualified Code(s): S22.41XA - Multiple fractures of ribs, right side, initial encounter for closed fracture (4) Multiple myeloma Multiple myeloma remission status: unspecified Qualified Code(s): C90.00 - Multiple myeloma not having achieved remission (6) COPD (chronic obstructive pulmonary disease) COPD type: unspecified COPD Qualified Code(s): J44.9 - Chronic obstructive pulmonary disease, unspecified
[2022-06-26] MEDS: INSULIN ASPART PER UNIT SC SCH ×4 (09:24→20:16)
[2022-06-26] MEDS: LANTUS PER UNIT CHARGE SQ SCH ×2 (09:25→20:17)
[2022-06-26 09:48] LABS: BUN Creatinine Ratio 30.8 (10-20); Calcium 9.3 mg/dl (8.5-10.1); Creatinine Clr Calc Pharmacy 94.5 ml/min; Est GFR (African American) 111.1 ml/min; Est GFR (Non-African American) 95.8 ml/min
--- NOTE | 2022-06-26 19:17 | Billing Data ---
Date of Service June 26, 2022 Coding Level of Care Code 01008 SUB INP/OBS CARE
[2022-06-26] MEDS ORDERED: oxyCODONE HCL IR 5 MG TAB (IMMEDIATE RELEASE) PO ONE (20:01)
[2022-06-26] MEDS: QUEtiapine FUMARATE 200 MG TAB PO SCH (20:01)
[2022-06-26] MEDS: DOCUSATE SODIUM 100 MG CAP PO SCH (20:04)
[2022-06-27] MEDS: oxyCODONE HCL IR 5 MG TAB (IMMEDIATE RELEASE) PO PRN ×3 (05:20→17:58)
[2022-06-27] MEDS: ACETAMINOPHEN 500 MG TAB PO SCH ×3 (06:11→22:42)
[2022-06-27] MEDS: ALPRAZolam 0.25 MG TABLET PO PRN ×3 (06:28→20:06)
[2022-06-27] MEDS: IPRATROPIUM BROMIDE NEB SOLN 0.02% 2.5 ML VIAL NEB PRN (06:47)
[2022-06-27] MEDS: LEVALBUTEROL HCL 1.25 MG/3 ML NEB NEB PRN (06:48)
[2022-06-27] MEDS: busPIRone 5 MG TAB PO SCH ×3 (08:09→20:06)
[2022-06-27] MEDS: FUROSEMIDE 40 MG TAB PO SCH (08:09)
[2022-06-27] MEDS: ENOXAPARIN 150 MG/ML SYR SQ SCH (08:09)
[2022-06-27] MEDS: VALSARTAN 80 MG TAB PO SCH (08:09)
[2022-06-27] MEDS: FLUTICASONE FUROATE 200MCG 14 PUFFS/INHALER INH SCH (08:13)
[2022-06-27] MEDS: UMECLIDINIUM/VILANTEROL 62.5/25MCG 7 PUFFS/INHALER INH SCH (08:13)
[2022-06-27] MEDS: POLYETHYLENE (MIRALAX) 17 GM PACK PO SCH (08:15)
[2022-06-27] MEDS: BUPRENORPHINE/NALOXONE 8/2 MG TAB SL SCH ×2 (08:17→22:42)
[2022-06-27] MEDS: INSULIN ASPART PER UNIT SC SCH ×4 (08:31→20:47)
[2022-06-27] MEDS: LANTUS PER UNIT CHARGE SQ SCH ×2 (08:31→20:41)
[2022-06-27] MEDS: bisacodyL 5 MG TABEC PO PRN (09:20)
--- NOTE | 2022-06-27 14:57 | Hospitalist Progress Note ---
Date of Service June 27, 2022 Assessment & Plan (1) Rib fractures: Plan: 62-year-old female with history of COPD, diabetes, multiple myeloma, PE on therapeutic Lovenox and CHF presenting with acute fractures of right ribs 5, 6, and 7 sustained after patient fell in the yard. Hemodynamically stable. Patient is at higher risk for developing complications secondary to presence of 3 rib fractures as well as underlying history of asthma/COPD. She is on therapeutic Lovenox for history of pulmonary embolism in the setting of multiple myeloma/malignancy. No damage to internal structures noted on initial scans. Chronic pain is managed with buprenorphinenaloxone films for history of multiple myeloma. She states that she is prescribed Suboxone by doctor in [place]. - Pain management consulted - Declines lidocaine path as she states it gave her a skin reaction prior Tylenol 1 g p.o. 3 times daily - Plan for pain management with 10mg oxycodone today, with hopes of moving towards [place] Perform oral hygiene every 4 hours Incentive spirometry every hour Supplemental oxygen as needed; has been stable on room air (2) Nasal fracture: Plan: - CT face noted nondisplaced bilateral nasal bone fractures - Denies trouble breathing, pain improving (3) Right knee pain: Plan: - X-ray of right knee with swelling, no fracture. (4) Multiple myeloma: Plan: Patient with multiple myeloma status post stem cell treatment in 2013. She foll ows with a physician at [facility] near her hometown [facility]. She is presently not undergoing any treatment for her multiple myeloma. Continue buprenorphinenaloxone for pain management (5) CHF (congestive heart failure): Plan: Heart failure with preserved EF. Last echo performed on 06/13/2022 with normal LV size. Mild concentric LVH. EF 60 to 65% with no regional wall motion abnormalities. Grossly normal RV size and function. No significant valvular pathology. Small pericardial effusion present Continue Lasix 40 mg p.o. daily (6) COPD (chronic obstructive pulmonary disease): Plan: Patient with recent exacerbation of COPD. Presently does not seem to be in acute exacerbation. She is at high risk for respiratory compromise given her recent fall, rib fractures x3 and history of COPD/asthma Continue ipratropium bromide Continue Xopenex Continue Trelegy or formulary equivalent Prednisone taper from prior admission was completed on 06/22 Patient is to be on supplemental oxygen at night but reports she did not bring her tank to her sister's house. Should be discharged with home oxygen if appropriate (7) History of pulmonary embolism: Plan: Patient with history of pulmonary embolism. She is presently on Lovenox therapeutic dose Continue Lovenox 150 mg subcutaneously daily Hemoglobin has been stable (8) Diabetes: Plan: Poorly controlled with last hemoglobin A1c on 05/15/2022 = 9.3 Increase Lantus to 20 BID Insulin sliding scale. CF= 20, CR= 5 Goal blood sugar [id number] (9) Anxiety: Plan: Patient with anxiety. Continue Seroquel 20 mg p.o. nightly Continue buspirone 10 mg p.o. 3 times daily Home dose Xanax 0.25 mg p.o. twice daily as needed; increase to QID given acute stress FENHep-Lock, consistent carb/heart healthy diet as tolerated Prophylaxiscontinue Lovenox 150 mg subcutaneously daily [place] Admission and Anticipated Discharge Date Admission Date: June 22, 2022 Supervising Physician Co-Signing Physician Notes I personally examined the patient and verified all rosario points of history and exam, discussed case, and agree with decision making with Dr Trevizo Pain continues to improve. Thinking she could probably go home by tomorrow. vitals noted nad breathing unlabored no accessory muscle use good effort. Less apparent twinges of pain. Walking the halls whenever I first come into the room. Right lower extremity with a degree of edema and tenderness, but fits with soft tissue bruising tracking down fascial planes, and is already on therapeutic Lovenoxlow suspicion for VTE. contiguous fracture ribs 5-7 - from fall. Previously discussed high probability of osteopenia/porosis. notes she had DEXA back home and will follow up after. Pain control, working on anxiety. Hopefully home tomorrow. Otherwise as above. Extensive discussions and education as it relates to pain control/anxiety/medication/etc. otherwise as above. hopefully home soon Subjective Rib pain slowly improving. Able to move more. Slept better last night. Still having pain in the right knee. Review of Systems Review of Systems: As per above Physical Exam Physical Exam: Constitutional: well-appearing, no acute distress HEENT: NCAT, no conjunctival injection CV: regular rhythm, no murmur appreciated, extremities well-perfused, no LE edema Resp: CTABL, no wheezes/rales/rhonchi appreciated, no increased work of breathing Skin: warm, dry, no rash appreciated Neuro: alert, oriented, no focal neurologic deficit appreciated Results & Data Results & Data ([facility]) Vital Signs (Past 12 Hours) Vital Signs Temp Pulse Resp BP Pulse Ox O2 Del Method 06/27/22 07:53 Room Air 06/27/22 07:15 36.8 C 87 16 144/87 H 93 Room Air 06/27/22 06:49 93 H 18 95 Room Air Resident Activity Tracking Resident Involvement: Resident Care Provided Care Provided: Adult Hospital Medicine (1) Rib fractures Encounter type: initial encounter Fracture type: closed Laterality: right Qualified Code(s): S22.41XA - Multiple fractures of ribs, right side, initial encounter for closed fracture (4) Multiple myeloma Multiple myeloma remission status: unspecified Qualified Code(s): C90.00 - Multiple myeloma not having achieved remission (6) COPD (chronic obstructive pulmonary disease) COPD type: unspecified COPD Qualified Code(s): J44.9 - Chronic obstructive pulmonary disease, unspecified
[2022-06-27] MEDS: DOCUSATE SODIUM 100 MG CAP PO SCH (20:05)
[2022-06-27] MEDS: QUEtiapine FUMARATE 200 MG TAB PO SCH (20:06)
--- NOTE | 2022-06-27 20:21 | Billing Data ---
Date of Service June 27, 2022 Coding Level of Care Code 33358 SUB INP/OBS CARE
[2022-06-27] MEDS ORDERED: oxyCODONE HCL IR 5 MG TAB (IMMEDIATE RELEASE) PO SCH (21:00)
[2022-06-28] MEDS: oxyCODONE HCL IR 5 MG TAB (IMMEDIATE RELEASE) PO PRN ×2 (05:14→12:06)
[2022-06-28] MEDS: ACETAMINOPHEN 500 MG TAB PO SCH (05:17)
[2022-06-28] MEDS: ALPRAZolam 0.25 MG TABLET PO PRN ×2 (05:17→12:59)
[2022-06-28] MEDS: LEVALBUTEROL HCL 1.25 MG/3 ML NEB NEB PRN (05:25)
--- NOTE | 2022-06-28 07:59 | Hospitalist Progress Note ---
Date of Service June 28, 2022 Assessment & Plan (1) Rib fractures: Plan: 62-year-old female with history of COPD, diabetes, multiple myeloma, PE on therapeutic Lovenox and CHF presenting with acute fractures of right ribs 5, 6, and 7 sustained after patient fell in the yard. Hemodynamically stable. Patient is at higher risk for developing complications secondary to presence of 3 rib fractures as well as underlying history of asthma/COPD. She is on therapeutic Lovenox for history of pulmonary embolism in the setting of multiple myeloma/malignancy. No damage to internal structures noted on initial scans. Chronic pain is managed with buprenorphinenaloxone films for history of multiple myeloma. She states that she is prescribed Suboxone by doctor in [place]. - Pain management consulted - Declines lidocaine path as she states it gave her a skin reaction prior Tylenol 1 g p.o. 3 times daily - Plan for pain management with 10mg oxycodone today, with hopes of moving towards [place] Perform oral hygiene every 4 hours Incentive spirometry every hour Supplemental oxygen as needed; has been stable on room air --- Plan discharge today? Pain improving. (2) Nasal fracture: Plan: - CT face noted nondisplaced bilateral nasal bone fractures - Denies trouble breathing, pain improving (3) Right knee pain: Plan: - X-ray of right knee with swelling, no fracture. (4) Multiple myeloma: Plan: Patient with multiple myeloma status post stem cell treatment in 2013. She follows with a physician at [facility] near her hometown of [facility]. She is presently not undergoing any treatment for her multiple myeloma. Continue buprenorphinenaloxone for pain management (5) CHF (congestive heart failure): Plan: Heart failure with preserved EF. Last echo performed on 06/13/2022 with normal LV size. Mild concentric LVH. EF 60 to 65% with no regional wall motion abnormalities. Grossly normal RV size and function. No significant valvular pathology. Small pericardial effusion present Continue Lasix 40 mg p.o. daily (6) COPD (chronic obstructive pulmonary disease): Plan: Patient with recent exacerbation of COPD. Presently does not seem to be in acute exacerbation. She is at high risk for respiratory compromise given her recent fall, rib fractures x3 and history of COPD/asthma Continue ipratropium bromide Continue Xopenex Continue Trelegy or formulary equivalent Prednisone taper from prior admission was completed on 06/22 Patient is to be on supplemental oxygen at night but reports she did not bring her tank to her sister's house. Should be discharged with home oxygen if appropriate (7) History of pulmonary embolism: Plan: Patient with history of pulmonary embolism. She is presently on Lovenox therapeutic dose Continue Lovenox 150 mg subcutaneously daily Hemoglobin has been stable (8) Diabetes: Plan: Poorly controlled with last hemoglobin A1c on 05/15/2022 = 9.3 Increase Lantus to 20 BID Insulin sliding scale. CF= 20, CR= 5 Goal blood sugar [id number] (9) Anxiety: Plan: Patient with anxiety. Continue Seroquel 20 mg p.o. nightly Continue buspirone 10 mg p.o. 3 times daily Home dose Xanax 0.25 mg p.o. twice daily as needed; increase to QID given acute stress FENHep-Lock, consistent carb/heart healthy diet as tolerated Prophylaxiscontinue Lovenox 150 mg subcutaneously daily [place] Admission and Anticipated Discharge Date Admission Date: June 22, 2022 Subjective 3: Rib pain slowly improving. Able to move more. Slept better last night. Still having pain in the right knee. /: Review of Systems Review of Systems: As per above Physical Exam Physical Exam: Constitutional: well-appearing, no acute distress HEENT: NCAT, no conjunctival injection CV: regular rhythm, no murmur appreciated, extremities well-perfused, no LE edema Resp: CTABL, no wheezes/rales/rhonchi appreciated, no increased work of breathing Skin: warm, dry, no rash appreciated Neuro: alert, oriented, no focal neurologic deficit appreciated Results & Data Results & Data ([facility]) Vital Signs (Past 12 Hours) Vital Signs Temp Pulse Resp BP BP Pulse Ox O2 Del Method 06/28/22 07:19 36.4 C L 81 16 128/83 94 Room Air 06/28/22 05:25 85 18 96 Room Air 06/27/22 20:57 37 C 106 H 18 106/68 92 Room Air Resident Activity Tracking Resident Involvement: Resident Care Provided Care Provided: Adult [facility] Medicine (1) Rib fractures Encounter type: initial encounter Fracture type: closed Laterality: right Qualified Code(s): S22.41XA - Multiple fractures of ribs, right side, initial encounter for closed fracture (4) Multiple myeloma Multiple myeloma remission status: unspecified Qualified Code(s): C90.00 - Multiple myeloma not having achieved remission (6) COPD (chronic obstructive pulmonary disease) COPD type: unspecified COPD Qualified Code(s): J44.9 - Chronic obstructive pulmonary disease, unspecified
[2022-06-28] MEDS: UMECLIDINIUM/VILANTEROL 62.5/25MCG 7 PUFFS/INHALER INH SCH (09:14)
[2022-06-28] MEDS: FLUTICASONE FUROATE 200MCG 14 PUFFS/INHALER INH SCH (09:14)
[2022-06-28] MEDS: BUPRENORPHINE/NALOXONE 8/2 MG TAB SL SCH (09:15)
[2022-06-28] MEDS: FUROSEMIDE 40 MG TAB PO SCH (09:16)
[2022-06-28] MEDS: ENOXAPARIN 150 MG/ML SYR SQ SCH (09:16)
[2022-06-28] MEDS: POLYETHYLENE (MIRALAX) 17 GM PACK PO SCH (09:16)
[2022-06-28] MEDS: busPIRone 5 MG TAB PO SCH (09:16)
[2022-06-28] MEDS: VALSARTAN 80 MG TAB PO SCH (09:17)
[2022-06-28] MEDS: INSULIN ASPART PER UNIT SC SCH ×2 (09:22→13:03)
[2022-06-28] MEDS: LANTUS PER UNIT CHARGE SQ SCH (09:22)
[2022-06-28] MEDS: bisacodyL 5 MG TABEC PO PRN (10:33)
--- NOTE | 2022-06-28 13:00 | Discharge Summary ---
Date of Service June 28, 2022 Admission HPI Per Admitting Provider Janae Monzon is a 62-year-old female with history of diabetes, multiple myeloma, prior PE on therapeutic Lovenox, COPD on 2 L of oxygen nightly and asthma presenting after a fall resulting in rib fractures x3. Patient is currently living with her sister. This evening she went out on the back porch to smoke a cigarette. She was eating around the yard and was unaware that the yard went into a hill. She stumbled down the hill and was unable to stop her feet. She then fell and landed face first in the yard. She hit her face and right side of her chest against the ground. She does not think she lost consciousness. She reports she had a difficult time breathing initially because of having the wind knocked out of her. She was helped up by a neighbor and EMS was called. Patient is complaining of severe bilateral rib pain right more than left as well as some shortness of breath and nausea secondary to the pain. She denies fever, chills, chest pain, cough, dizziness. Denies abdominal pain, vomiting, diarrhea. No additional complaints at this time. Of note, patient was recently admitted to [facility] from 06/12/2022 - 06/14/2022 with a COPD exacerbation. She was discharged on a steroid taper. She reports that her breathing has improved since being on the steroids. In the ER she is afebrile, hemodynamically stable, in moderate distress secondary to underlying pain. ER course: Tylenol 1 g p.o. Alprazolam 0.5 mg Albuterol 3 mL neb Lorazepam 0.5 mg IM x2 doses Dilaudid 1 mg IV Admission Exam Per Admitting Provider General: patient tearful, in moderate distress secondary to pain, awake alert and oriented x4 Skin: warm, dry, intact, no rashes or lesions HEENT: NC/AT, PERRL, EOMI, anicteric sclera, conjunctiva without injection, external ear normal to inspection and nontender, nares patent, moist mucus membranes, dentition intact, no oropharyngeal lesions, neck supple, trachea midline, no LAD, no thyromegaly, no JVD Heart: +S1/S2, regular, no m/r/g Lungs: No deformity of the chest, equal air entry bilaterally with normal chest wall mechanics, no flail chest, no crepitus, visible splinting with shallow breathing, mildly elevated respiratory rate to approximately 16 rest per minute. Crackles in bilateral bases. No wheezing Abd: +BS, soft, NT/ND, no masses/organomegaly/ascites Ext: warm, 2+ pulses in UE/LE bilaterally, no clubbing/cyanosis or edema Neuro: nonfocal, patient AA&O x 4, speech intact, no facial droop, moving all extremities on command with equal strength 5/5 Principal Diagnosis Rib Fracture Discharge Exam Gen: NAD, alert, interactive Resp:Non-labored, no wheezing/rhonchi/rales, CTAB CV:RRR, normal S1/S2, no M/R/G Abd: Soft, non-distended, no TTP, normoactive bowels, no masses Extr: 2+ dp bilaterally, no edema Skin: No rashes lesions or erythema Discharge Data Allergies Allergy/AdvReac Type Severity Reaction Status Date / Time codeine Allergy Severe Anaphylaxis Verified 06/21/22 23:44 Iodinated Contrast Media Allergy Severe Anaphylaxis Verified 06/21/22 23:44 shellfish derived Allergy Severe Anaphylaxis Verified 06/21/22 23:44 tramadol Allergy Intermediate ITCHINESS Verified 06/21/22 23:44 iohexol Allergy Unknown CAN'T Verified 06/21/22 23:44 REMEMBER diphenhydramine AdvReac Severe Anxiety Verified 06/21/22 23:44 [From Benadryl] montelukast [From Singulair] AdvReac Intermediate Anxiety Verified 06/21/22 23:44 promethazine AdvReac Intermediate Anxiety Verified 06/21/22 23:44 Consultations 06/21/22 23:13 ED Decision to Admit Stat 06/23/22 08:00 Consult Pain Management Routine Ordered Studies Laboratory Results WBC 12.17 K/ul (4.8-10.8) H 06/25/22 07:03 RBC 5.40 M/uL (4.20-5.40) 06/25/22 07:03 Hgb 14.4 g/dl (12.0-16.0) 06/25/22 07:03 Hct 45.3 % (37.0-47.0) 06/25/22 07:03 MCV 83.9 fL (80.0-100.0) 06/25/22 07:03 MCH 26.7 pg (25.0-34.0) 06/25/22 07:03 MCHC 31.8 g/dL (32.0-36.0) L 06/25/22 07:03 RDW Std Deviation 44.5 fL (36.4-46.3) 06/25/22 07:03 RDW Coeff of Malick 14.8 % (11.5-14.5) H 06/25/22 07:03 Plt Count 299 K/uL (130-400) 06/25/22 07:03 MPV 9.8 fL (9.4-12.4) 06/25/22 07:03 Immature Gran % (Auto) 0.5 % 06/24/22 06:44 Neut % (Auto) 64.0 % 06/24/22 06:44 Lymph % (Auto) 26.7 % 06/24/22 06:44 Amador % (Auto) 5.7 % 06/24/22 06:44 Eos % (Auto) 2.5 % 06/24/22 06:44 Baso % (Auto) 0.6 % 06/24/22 06:44 Neut # (Auto) 8.08 K/uL (1.40-6.50) H 06/24/22 06:44 Lymph # (Auto) 3.37 K/uL (1.2-3.4) 06/24/22 06:44 Amador # (Auto) 0.72 K/uL (0.11-0.59) H 06/24/22 06:44 Eos # (Auto) 0.32 K/uL (0-0.50) 06/24/22 06:44 Baso # (Auto) 0.08 K/uL (0-0.2) 06/24/22 06:44 Immature Gran # (Auto) 0.06 K/uL (0.01-0.20) 06/24/22 06:44 Sodium 137 mmol/L (136-145) 06/26/22 09:02 Potassium 4.0 mmol/L (3.5-5.1) 06/26/22 09:02 Chloride 100 mmol/L (98-107) 06/26/22 09:02 Carbon Dioxide 29 mmol/L (21-32) 06/26/22 09:02 Anion Gap 8 (3-11) 06/26/22 09:02 BUN 20 mg/dl (6-23) 06/26/22 09:02 Creatinine 0.65 mg/dl (0.6-1.2) 06/26/22 09:02 Est Cr Clr Drug Dosing 94.5 ml/min 06/26/22 09:02 Est GFR ( Amer) 111.1 ml/min 06/26/22 09:02 Est GFR (Non-Af Amer) 95.8 ml/min 06/26/22 09:02 BUN/Creatinine Ratio 30.8 (10-20) H 06/26/22 09:02 Glucose 280 mg/dl (70-99(Fasting)) H 06/26/22 09:02 POC Glucose 125 mg/dl (70-99) H 06/28/22 12:27 Calcium 9.3 mg/dl (8.5-10.1) 06/26/22 09:02 Total Bilirubin 0.5 mg/dl (0.2-1.0) 06/24/22 06:44 Direct Bilirubin 0.0 mg/dl (0-0.2) 06/23/22 06:54 AST 11 U/L (13-39) L 06/24/22 06:44 ALT 24 U/L (7-52) 06/24/22 06:44 Alkaline Phosphatase 93 U/L (34-104) 06/24/22 06:44 Troponin I High Sens 11.8 pg/ml (0-14) 06/21/22 18:49 Total Protein 7.3 gm/dl (6.0-8.3) 06/24/22 06:44 Albumin 4.2 gm/dl (3.4-5.0) 06/24/22 06:44 Globulin 3.1 gm/dl (2.5-4.0) 06/24/22 06:44 Albumin/Globulin Ratio 1.4 (0.9-2) 06/24/22 06:44 Hepatitis C Ab (EIA) NON-REACTIVE (NON-REACTIVE) 06/22/22 06:23 Hep C Ab Signal/Cutoff <0.02 (<1.00) 06/22/22 06:23 SARS-CoV-2, RNA, NAAT NEGATIVE (NEGATIVE) 06/22/22 01:20 Impressions Abdomen/Pelvis CT 06/21/22 18:[address] WITHOUT CONTRAST CT DOSE: HISTORY: Fall. Trauma TECHNIQUE: Multiaxial CT images of the abdomen and pelvis were performed without contrast. A dose lowering technique was utilized adhering to the principles of ALARA. COMPARISON STUDY: None. FINDINGS: Right anterior rib fractures are better appreciated on the same day chest CT. Mild dependent changes seen at the lung bases. Prior cholecystectomy. The unenhanced liver, spleen, kidneys, pancreas, right adrenal gland unremarkable. Mild thickening of the left adrenal gland is likely age-related. No retroperitoneal hematoma or lymphadenopathy. Calcified plaque within the normal caliber abdominal aorta. No pelvic free fluid. Hysterectomy and appendectomy. Normal bladder. No bowel wall thickening or obstruction. Small umbilical hernia containing a short segment of small bowel. Retroperitoneal surgical clips are noted. IMPRESSION: 1. The right anterior rib fractures are better appreciated on the same day chest CT. 2. Otherwise, no acute traumatic process within the abdomen or pelvis. 3. Small umbilical hernia containing a short segment of small bowel. No evidence for bowel obstruction. ACT 112: Negative or not required by law. Electronically signed by: Chester Salas M.D. 06/22/2022 9:[address] 06/21/22 18:[address] DOSE: HISTORY: Trauma TECHNIQUE: Multiaxial CT images of the cervical spine were performed and reformatted in the sagittal and coronal plane without the use of contrast. A dose lowering technique was utilized adhering to the principles of ALARA. COMPARISON: None. FINDINGS: No fractures. No subluxation. Prevertebral soft tissues and the C1-C2 interval are intact. No pneumothorax. Mild degenerative changes within the cervical spine. There is a benign-appearing lucent lesion at the T2 vertebral body. IMPRESSION: No fractures within the cervical spine. ACT 112: Negative or not required by law. Electronically signed by: Chester Salas M.D. 06/22/2022 9:[address] 06/21/22 18:09 CT OF THE CHEST WITHOUT IV CONTRAST CLINICAL HISTORY: Trauma COMPARISON STUDY: Chest CT June 12, 2022. Chest radiograph performed earlier today. CT DOSE: 6841.31 mGy.cm TECHNIQUE: Axial images of the chest were obtained without IV contrast. Images were reviewed in the axial, sagittal, and coronal planes. IV contrast was not administered for this examination. Automated exposure control was utilized for the study. A dose lowering technique was utilized adhering to the principles of ALARA. FINDINGS: Thoracic aorta is suboptimally assessed on this unenhanced exam. However, there is no mediastinal hematoma. Mild cardiomegaly is noted with moderate coronary artery calcification. There is mild circumferential wall thickening distal esophagus. No pneumothorax or pulmonary contusion is present. This exam was compromised given difficulty positioning. There are mild groundglass opacities within the lungs which favor atelectasis. Acute nondisplaced fractures anterior right fifth, sixth and seventh ribs are present. There is no pneumothorax. No acute left rib fractures are present. No acute thoracic spine fracture is noted. Expansile lesion within the anterior right fourth rib is again noted. There is also an indeterminate 1.8 cm lytic lesion within the left aspect of the T2 vertebral body. The abdomen and pelvis CT will be reported separately. IMPRESSION: 1. Acute nondisplaced fractures anterior right fifth, sixth and seventh ribs. No pneumothorax. 2. No additional acute traumatic findings within the chest. Exam mildly compromised given difficulty positioning. 3. Redemonstration of an indeterminate expansile lesion within the right fourth rib and a 1.8 cm lytic lesion within the T2 vertebral body. A neoplastic process such as myeloma or metastatic disease cannot be excluded. ACT 112: Negative or not required by law. Electronically signed by: Hipolito Sevilla M.D. 06/22/2022 9:[address] 06/21/22 18:[address] WITHOUT CONTRAST CLINICAL HISTORY: Trauma COMPARISON STUDY: None. TECHNIQUE: A maxillofacial CT was performed without IV contrast. Coronal and sagittal reformats were viewed. Automated exposure control was utilized for the study. A dose lowering technique was utilized adhering to the principles of ALARA. FINDINGS: The globes are intact. There is no retrobulbar hematoma. Age indeterminate nondisplaced nasal bone fractures are present. No definite acute facial fractures are present. Alignment of the temporomandibular joints is anatomic. No acute skull base fracture. Pterygoid plates are intact. IMPRESSION: 1. No definite acute facial fracture. 2. Age indeterminate nondisplaced bilateral nasal bone fractures. ACT 112: Negative or not required by law. Electronically signed by: Hipolito Sevilla M.D. 06/22/2022 9:[address] 06/21/22 18:[address] DOSE: HISTORY: Trauma TECHNIQUE: Multiaxial CT images of the head were performed without the use of intravenous contrast. Automated exposure control was utilized for this study. A dose lowering technique was utilized adhering to the principles of ALARA. Comparison: None. Findings: Motion artifact. The paranasal sinuses and mastoid air cells are clear. The calvarium and skull base are intact. The ventricles and sulci are wit hin normal limits. There is no mass, hematoma, midline shift, or acute infarct. Impression: Motion artifact. No definite acute intracranial abnormality. ACT 112: Negative or not required by law. Electronically signed by: Chester Salas M.D. 06/22/2022 7:38 AM Chest X-Ray 06/21/22 19:46 XR chest 1V portable HISTORY: Shortness of breath. COMPARISON: Chest 06/12/2022. FINDINGS: No pneumothorax. No pleural effusions. Mild chronic interstitial thickening persists. The heart remains top normal in size. No evidence for pulmonary edema. No new focal lung consolidations to suggest a pneumonia. An expansile right anterior fourth rib lesion, unchanged. IMPRESSION: 1. No acute process within the chest. 2. Stable expansile right anterior fourth rib lesion. This is better appreciated on the same day chest CT. ACT 112: Negative or not required by law. Electronically signed by: Chester Salas M.D. 06/22/2022 8:50 AM Knee X-Ray 06/25/22 11:16 XR knee RT 1 or 2V routine HISTORY: 62 years-old Female Pain in right knee after fall acute right knee pain status post fall COMPARISON: None TECHNIQUE: 2 views of the right knee FINDINGS: Minimal tricompartmental osteoarthritis. Arterial calcifications are noted within the region of the tibial tuberosity. Circumferential soft tissue swelling of the knee is mild to moderate. No acute fracture, dislocation or large joint effusion. IMPRESSION: 1. Soft tissue swelling without acute fracture or dislocation. 2. Mild osteoarthritis. ACT 112: Negative or not required by law. The above report was generated using voice recognition software. It may contain grammatical, syntax or spelling errors. Electronically signed by: Avi Leon M.D. 06/25/2022 12:08 PM Hospital Course (1) Rib fractures: (2) Nasal fracture: (3) Right knee pain: (4) Multiple myeloma: (5) CHF (congestive heart failure): (6) COPD (chronic obstructive pulmonary disease): (7) History of pulmonary embolism: (8) Diabetes: (9) Anxiety: Plan Janae is a 62F w/ history of COPD, DM, Multiple Myeloma, PE (on Lovenox), and CHF who presented with acute rib fractures after a fall. (1) Rib fractures: Plan: - Evidenced by CXR, nondisplaced - Hemodynamically stable. - Patient is at higher risk for developing complications secondary to presence of 3 rib fractures as well as underlying history of asthma/COPD. - She is on therapeutic Lovenox for history of pulmonary embolism in the setting of multiple myeloma/malignancy. - No damage to internal structures noted on initial scans --- Chronic pain mgmt with buprenorphine-naloxone (managed by in [place], where she is from) --- Continue Tylenol 1g PO TID PRN --- Will send Rx for short course of Oxycodone 10 mg PO Q6h --- No supplemental O2 needed, stable on room air, continue incentive spirometry (2) Nasal fracture: Plan: - CT face notednondisplaced bilateral nasal bone fractures - Denies trouble breathing, pain improving (3) Right knee pain: Plan: - X-ray of right knee with swelling, no fracture. (4) Multiple myeloma: Plan: - MM s/p stem cell treatment (2013), follows w/ [facility] in [place] - Ongoing use of therapeutic Lovenox - Continue home pain management (5) CHF (congestive heart failure): HFpEF Plan: - Last echo performed on 06/13/2022: normal LV, concentric LVH (mild), EF 60-65%, no wall motion anomaly, normal RV, no valvular pathology, small pericardial effusion Continue Lasix 40 mg p.o. daily (6) COPD (chronic obstructive pulmonary disease): Plan: - Recent COPD exacerbation, improved - Continue Ipratropium, Xopenex, Trelegy - Completed Prednisone taper on 06/22 --- Patient has not required supplemental O2, oxygen saturation stable (7) History of pulmonary embolism: Plan: - Patient with history of pulmonary embolism Continue Lovenox 150 mg subcutaneously daily Hemoglobin has been stable (8) Diabetes: Plan: - Poorly controlled with last hemoglobin A1c on 05/15/2022 = 9.3 Insulin sliding scale. CF= 20, CR= 5 Goal blood sugar [id number] --- Lantus increased to 20 BID (9) Anxiety: Plan: Continue Seroquel 20 mg p.o. nightly Continue buspirone 10 mg p.o. 3 times daily Home dose Xanax 0.25 mg p.o. twice daily as needed; increase to QID given acute stress FENHep-Lock, consistent carb/heart healthy diet as tolerated Prophylaxiscontinue Lovenox 150 mg subcutaneously daily Codefull Total Time Total Time Spent Total Time Spent (In Minutes): 30 Discharge Plan Discharge Items Patient Disposition: Home - Self-Care Reason For Visit: FALL, RIB FRACTURE x 3 Discharge Diagnosis: Rib fracture Activity: Per Instructions section Non-emergency contact: Primary Care Provider Call non-emergency contact if: you have any medication questions Follow-up/Referrals: Celine Romano CRNP [Primary Care Provider] - Diet: Carb Consistent or DM2 Addtl Attending Provider Instructions: You were admitted to the hospital after a fall at home which resulted in rib fractures (Ribs 5-7) as well as nasal bone fractures. While you were admitted we worked together to manage your acute pain. What best controlled your pain during admission was Oxycodone 10 mg every 6 hours. You will be sent home with a prescription for a short course of pain medication. Your home medications were not changed, so you should return to the medications that you were taking at home. You may include over the counter Tylenol in your pain management regimen as needed at home. Your fractures will continue to heal without additional intervention over the next few weeks. There is a high probability that you are experiencing some osteopenia vs osteoporosis. It is encouraged for you to follow up with your PCP to discuss the results of your recent DEXA scan that was performed outpatient. During your admission, we discussed your concerns regarding anxiety and the recent life changes that you have been experiencing. As we discussed this morning, I strongly support your desire to establish with a counselor and encourage you to do so following discharge. This is something that your PCP can help you facilitate outpatient if needed. If you find that your concerns regarding anxiety persist or are not improving, I encourage you to discuss medical management with your primary care provider. You were recently treated inpatient for a COPD exacerbation as well, your home medications were continued and your pulmonary status remained stable while you were in the hospital. Your oxygen saturation has been normal on room air and you have not experienced any shortness of breath during admission. Additional supplementation with oxygen via nasal cannula is not indicated at this time. Please follow up with your PCP w/in one week of discharge. Your medications will be sent to your preferred pharmacy. It was a pleasure to be a part of your care, Dr. Fernandez Pending Studies at Discharge: No Stand-Alone Forms: My [facility], Pain - Opioid Pain Management, Smoking Cessation Medications and DC Order Prescriptions: New oxycodone 10 mg tablet 10 mg PO Q6H PRN (Reason: pain) Qty: 35 0RF Continued buspirone 5 mg Tablet 10 mg PO TID Rx Instructions: states dr is raising it to 10 mg tid nystatin 100,000 unit/mL suspension 5 ml PO DIRECTED Rx Instructions: STARTED 05/12/22 FOR 24 DAYS. ondansetron HCl 4 mg Tablet 4 mg PO Q8H PRN (Reason: NAUSEA/VOMITING) quetiapine 200 mg tablet 200 mg PO HS enoxaparin [Lovenox] 150 mg/mL Syringe 150 mg SUBCUT DAILY furosemide 20 mg tablet 40 mg PO DAILY nystatin 100,000 unit/gram Powder 1 applic TOPICAL BID PRN (Reason: UNDER BREASTS NEEDED.) valsartan 160 mg tablet 160 mg PO DAILY levalbuterol tartrate [Xopenex HFA] 45 mcg/actuation Hfa Aerosol Inhaler 2 inh INHALATION Q6H PRN (Reason: Shortness Of Breath) Atrovent HFA 17 mcg/actuation Hfa Aerosol Inhaler 2 puff INHALATION DIRECTED buprenorphine-naloxone 8-2 mg film 1 film sublingual BID Trelegy Ellipta 200-62.5-25 mcg blister with device 1 inh INHALATION DAILY prednisone 10 mg tablet 10 mg PO DIRECTED Qty: 20 0RF Rx Instructions: 4 tabs a day X 2d->3 tabs a day x 2d->2 tabs a dayx 2d->1 a daY insulin aspart U-100 100 unit/mL (3 mL) insulin pen 0 unit SUBCUT TIDWMEAL Rx Instructions: Per sliding scale insulin glargine [Lantus Solostar U-100 Insulin] 100 unit/mL (3 mL) insulin pen 40 unit SUBCUT QAM alprazolam [Xanax] 0.25 mg tablet 0.25 mg PO BID PRN (Reason: anxiety) Qty: 20 0RF Discharge Orders: Discharge Order (Routine); Ordered 06/28/22 Ordered By: Alvaro Fernandez Admission Data Admit Date/Time: 06/22/22 00:30 Attending Provider: Robby Dickinson Admit Provider: Riya Mckenna Primary Care Provider: Celine Romano Other Providers: Riya Mckenna ; Kristel Aldrich Other Interventions: Discharge Summary Assessment (RN) Last Done: 06/28/22 12:52 Supervising Physician Co-Signing Physician Notes I personally examined the patient and verified all rosario points of history and exam, discussed case, and agree with decision making with Dr Jim Reyes up to going home. Discussed outpatient management and follow-up. Ensured that she had the number for [facility] locally so that she can establish with a PCP if she does not get her way back home. Has outpatient appointments at home set up. vitals noted nad breathing unlabored no accessory muscle use good effort. No twinges of pain. right lower extremity with a degree of edema but is improving, less than the other day, and no calf tenderness. contiguous fracture ribs 5-7 - from fall. Previously discussed high probability of osteopenia/porosis. notes she had DEXA back home and will follow up after. Pain control, working on anxiety. Stable for home today. Otherwise as above. Have done extensive discussions and education as it relates to pain control/anxiety/medication/etc. discussed benzodiazepines creating possible vicious cycle of anxiety sensation due to benzodiazepine withdrawal once someone has a degree of tolerance/physical dependency, at the same time we discussed that weaning medications while she is recovering from multiple rib fractures is not the best time. Close outpatient follow-up. otherwise as above. Stable for home today. Resident Activity Tracking Resident Involvement: Resident Care Provided Care Provided: Adult Hospital Medicine
[2022-06-28] MEDS ORDERED: oxyCODONE HCL IR 5 MG TAB (IMMEDIATE RELEASE) PO SCH (13:15)
--- NOTE | 2022-06-28 19:20 | Billing Data ---
Date of Service June 28, 2022 Coding Level of Care Code 42201 IN/OBS DISCH 30 MIN/LESS
== END 2022-06-28 14:32 | disposition home or self-care (01) | DRG 184 ==
LOC: ED 16:01 → SUATTDRO 06-22 00:30 → 2S 06-22 00:30 → 3W 06-23 21:24

== ENCOUNTER 2023-03-02 14:40 | Inpatient (IN) ==
--- NOTE | 2023-03-02 14:58 | ED Triage Note ---
Date of Service March 02, 2023 History of Present Illness This patient was briefly evaluated while in triage. An abbreviated physical exam was performed. This patient is a 62-year-old Female who presents to the ED for evaluation of lower extremity swelling and dyspnea. no chest pain. was admitted 2 weeks ago for similar symptoms. Has been taking her medications as prescribed including bumex. Physical Exam CONSTITUTIONAL: in no acute pain or distress, resting comfortably SKIN: pink, warm, dry CARDIAC: tachycardic rate and rhythm RESPIRATORY: decreased breath sounds, slightly decreased air movement. Not tripoding but minimally tachypneic. MSK: 1+ pitting edema b/l lower extremities. compression stockings in place Initial orders for labs and / or imaging were placed and patient was placed in the waiting area until a bed is available. Please see further documentation for the full ED course.
--- NOTE | 2023-03-02 15:28 | XRay Report ---
SINGLE VIEW CHEST CLINICAL HISTORY: Dyspnea FINDINGS: An AP, portable, upright chest radiograph is compared to study dated 02/15/2023. Correlatio n is made with chest CT dated 06/21/2022. The cardiomediastinal silhouette is top normal for projectio n. Chronic interstitial thickening is similar to previous. There is mild bibasilar scarring/atelectas is. The lungs and pleural spaces are otherwise clear. No pneumothorax is seen. The skeletal structure s are osteopenic. There are chronic/healed right-sided rib fractures. Cholecystectomy clips are noted in the right upper quadrant. IMPRESSION: No active disease in the chest. ACT 112: Negative or not required by law. Electronically signed by: Cayetano Espinoza M.D. 03/02/2023 3:27 PM
[2023-03-02 16:54] LABS: Basophils % (auto) 0.7 %; Eosinophils % (auto) 2.7 %; Hematocrit (blood only) 49.3 % (37.0-47.0); Hemoglobin 16.1 g/dl (12.0-16.0); Immature Granulocytes # (auto) 0.06 K/uL (0.01-0.20); Immature Granulocytes % (auto) 0.4 %; Lymphocytes # (auto) 2.83 K/uL (1.20-3.40); Lymphocytes % (auto) 19.2 %; Mean Corpuscular Hemoglobin 26.5 pg (25.0-34.0); Mean Corpuscular Hgb Conc 32.7 g/dL (32.0-36.0); Mean Corpuscular Volume 81.2 fL (80.0-100.0); Mean Platelet Volume 9.7 fL (9.4-12.4); Monocytes # (auto) 0.68 K/uL (0.11-0.59); Monocytes % (auto) 4.6 %; Neutrophils # (auto) 10.65 K/uL (1.40-6.50); Neutrophils % (auto) 72.4 %; Platelet Count 373 K/uL (130-400); RDW Standard Deviation 45.9 fL (36.4-46.3); Red Blood Count 6.07 M/uL (4.20-5.40); White Blood Count 14.72 K/ul (4.8-10.8)
[2023-03-02 17:00] LABS: Albumin Globulin Ratio 1.3 (0.9-2); Albumin Level 4.3 gm/dl (3.4-5.0); BUN Creatinine Ratio 20.9 (10-20); Bilirubin,Total 0.3 mg/dl (0.2-1.0); Calcium 9.3 mg/dl (8.6-10.3); Creatinine Clr Calc Pharmacy 67.4 ml/min; Est GFR (African American) 78.9 ml/min; Est GFR (Non-African American) 68.1 ml/min; Globulin 3.4 gm/dl (2.5-4.0); Potassium 3.8 mmol/L (3.5-5.1); Total Protein 7.7 gm/dl (6.0-8.3)
[2023-03-02 17:06] LABS: Troponin I High Sensitivity 31.4 pg/ml (0-14)
[2023-03-02] MEDS ORDERED: ASPIRIN CHEW 324 MG PO STA (18:12)
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
[2023-03-02] MEDS ORDERED: ALPRAZolam 0.5 MG TABLET PO STA (20:25)
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
[2023-03-02] MEDS ORDERED: BUMETANIDE 2 MG in SYRINGE 0 ML IV ONE (20:45)
[2023-03-02] MEDS ORDERED: ONDANSETRON INJ 2 MG/ML 2 ML VIAL IV PRN (21:44)
[2023-03-02] MEDS ORDERED: GLUCOSE 10 TAB/TUBE PO PRN (21:44)
[2023-03-02] MEDS ORDERED: GLUCOSE 40% GEL 15 GM TUBE PO PRN (21:44)
[2023-03-02] MEDS ORDERED: GLUCAGON FOR INJ 1 MG VIAL SQ PRN (21:44)
[2023-03-02] MEDS ORDERED: DEXTROSE 50% 50 ML SYRINGE IV PRN (21:44)
[2023-03-02] MEDS ORDERED: CARBOHYDRATES FOR HYPOGLYCEMIA PO PRN (21:44)
[2023-03-02] MEDS: QUEtiapine FUMARATE 200 MG TAB PO SCH (22:30)
[2023-03-02] MEDS: BUPRENORPHINE/NALOXONE 8/2 MG TAB SL SCH (22:30)
[2023-03-02] MEDS: INSULIN ASPART PER UNIT CHARGE SC SCH (22:30)
[2023-03-02] MEDS: POTASSIUM CHLORIDE CRTAB 20 MEQ TABCR PO SCH (22:31)
[2023-03-02] MEDS: ALPRAZolam 0.5 MG TABLET PO SCH (22:31)
[2023-03-02] MEDS: IPRATROPIUM BROMIDE NEB SOLN 0.02% 2.5 ML VIAL NEB SCH (23:35)
[2023-03-02] MEDS: LEVALBUTEROL 1.25 MG/3 ML NEB INH SCH (23:35)
[2023-03-03] MEDS: IPRATROPIUM BROMIDE NEB SOLN 0.02% 2.5 ML VIAL NEB SCH ×4 (07:00→19:25)
[2023-03-03] MEDS: LEVALBUTEROL 1.25 MG/3 ML NEB INH SCH ×4 (07:01→19:24)
[2023-03-03] MEDS: BUDESONIDE 0.5 MG/2 ML VIAL (PULMICORT) NEB SCH ×2 (07:02→19:25)
--- NOTE | 2023-03-03 07:04 | Hospitalist Progress Note ---
Date of Service March 03, 2023 Assessment & Plan (1) Non-ST elevation MO (NSTEMI): (2) CHF exacerbation: (3) COPD exacerbation: (4) Tobacco abuse: (5) Elevated troponin: (6) Opiate dependence: (7) Multiple myeloma: (8) History of pulmonary embolism: (9) Diabetes: Plan #SOB #Tachycardia Patient with history of PE is on Lovenox 100 mg QAM. Was switched from 100 mg BID in January. Unclear for the reasoning behind this. Patient tachycardic as well with labored breathing. Patient with documented contrast allergy. Will clarify if truly an anaphylactic reaction. V:Q scan to r/o new PE. #CHF exacerbation/elevated troponin- The patient will be admitted to telemetry for serial cardiac enzymes, serial EKG's, cardiac rhythm monitoring. Troponin 31.4, peaked at 26.1. ASA given in ED. Most recent echo on 02/16/2023 with ejection fraction 65-70%, with improvement in pericardial effusion compared to 06/13/2022, and mild pulmonary hypertension Presumed CHF exacerbation on admit. Increased Bumex from 4 mg BID to 2 mg IV BID. Increased K supplementation as well. Monitor labs for signs of intolerance to diuresis. #COPD/pulmonary hypertension- Continue Xopenex nebulizers, increase from 3 times daily to 4 times daily. Continue Atrovent nebulizers 4 times daily. Continue Trelegy Ellipta Hold Xopenex HFA Add Pulmicort Respules 0.5 mg inhaled 2 times daily Consider pulm consult regarding contribution of pulmonary hypertension to difficulty breathing #Diabetes mellitus- Continue glargine 60 units subcu every morning Place on Accu-Cheks with NovoLog SSI #Chronic pain syndrome/chronic low back pain- Continue Suboxone #Anxiety- Continue quetiapine and alprazolam Code status: full DVT ppx: Lovenox 100 mg QAM FENGI: low sodium, heart healthy Dispo: PCU/tele Admission and Anticipated Discharge Date Admission Date: March 02, 2023 Supervising Physician Co-Signing Physician Notes I personally examined the patient and verified all rosario points of history and exam, discussed case, and agree with decision making with Dr Pena Ongoing shortness of breath. Ongoing anxiety. About 2 weeks of intermittent nausea, the last for 5 days fairly constant nausea difficult ability to take in p.o., decent amount of intense nausea precipitating drooling, decent amount of dry heaves, much reduced p.o. intake. No significant belly pain. Notes its worse in the morning, wonders if some of it is mucus related. Vitals noted, in general she is awake and alert pleasant but appears very anxious no physical distress. HEENT normocephalic atraumatic mucous membranes moist. Lungs show coarse findings throughout that are a little bit hard to distinguish between rales or quiet rhonchi particularly with diminished air entry throughout. Abdomen is soft but she does have fairly significant epigastric tenderness without guarding rebound or rigidity. Dyspneafortunately no PE, she is not certain why her Lovenox was recently reduced to 100 mg, she notes its always been 150we agreed to really escalate to her normal and what appears to be more appropriate home dosing, until or unless we see a reason that the reduction was necessary. Open discussion that her dyspnea is probably multifactorial with anxiety, COPD, and possibly (but least likely) CHF playing a role. Continue current treatment and follow closely. She asked for an additional alprazolamdiscussed I wanted her to watch very closely how her dyspnea feels a half an hour after taking itshe did note over the weekend that she felt significant improvement in her dyspnea doing the same thing at home. Discussed living situation, and how to try to make sense and get focus and a direction in spite of the chaos that has been going on for the better part of the last year or more. Subjective Patient 2 week history of worsening shortness of breath and leg swelling. Overall feeling unwell and unlike herself. No change in symptoms since admission. No fevers or chills. No recent illnesses. Does sleep on several pillows. Will wake up and be sitting in a chair with no memory of how she got there. Review of Systems 2 Review of Systems: See HPI Physical Exam 2 Physical Exam: Gen: well appearing female with labored breathing, pausing frequently, to take a breath HEENT: AT NC MMM Resp: diffuse wheezing with decreased breath sounds bilaterally at the bases CV: tachycardic, regular rhythm, no m/r/g clinically well perfused Ext: 1+ pitting edema with chronic venous stasis changes, no erythema or warmth, no skin breakdown Abd: non-distended Psych: appropriate mood and affect Neuro: alert and oriented MSK: no obvious deformities Results & Data Results & Data Vital Signs (Past 12 Hours) Vital Signs Temp Pulse Pulse Resp BP Pulse Ox O2 Del Method 03/03/23 03:00 36.8 C 104 H 20 130/76 90 Room Air 03/03/23 01:31 90 03/02/23 22:00 Room Air 03/02/23 21:00 36.5 C 93 H 18 133/82 94 Room Air 03/02/23 20:27 92 H 19 123/76 93 Nasal Cannula 03/02/23 19:20 88 03/02/23 19:19 88 L Room Air 03/02/23 19:12 90 Room Air 03/02/23 19:11 99 H 15 138/99 90 Room Air O2 Flow Rate 03/03/23 03:00 03/03/23 01:31 03/02/23 22:00 03/02/23 21:00 03/02/23 20:27 2 03/02/23 19:20 03/02/23 19:19 03/02/23 19:12 03/02/23 19:11 Laboratory Results 03/02/23 16:23 03/02/23 16:23 Diagnostic Findings Chest X-Ray 03/02/23 14:53 SINGLE VIEW CHEST CLINICAL HISTORY: Dyspnea FINDINGS: An AP, portable, upright chest radiograph is compared to study dated 02/15/2023. Correlation is made with chest CT dated 06/21/2022. The cardiomediastinal silhouette is top normal for projection. Chronic interstitial thickening is similar to previous. There is mild bibasilar scarring/atelectasis. The lungs and pleural spaces are otherwise clear. No pneumothorax is seen. The skeletal structures are osteopenic. There are chronic/healed right-sided rib fractures. Cholecystectomy clips are noted in the right upper quadrant. IMPRESSION: No active disease in the chest. Resident Activity Tracking Resident Involvement: Resident Care Provided Care Provided: Adult [facility] Medicine (7) Multiple myeloma Multiple myeloma remission status: unspecified Qualified Code(s): C90.00 - Multiple myeloma not having achieved remission
[2023-03-03] MEDS: INSULIN ASPART PER UNIT CHARGE SC SCH ×4 (08:31→21:50)
[2023-03-03] MEDS: ALPRAZolam 0.5 MG TABLET PO SCH ×2 (08:32→21:50)
[2023-03-03] MEDS: BUPRENORPHINE/NALOXONE 8/2 MG TAB SL SCH ×2 (08:32→21:50)
[2023-03-03] MEDS: POTASSIUM CHLORIDE CRTAB 20 MEQ TABCR PO SCH ×3 (08:32→21:53)
[2023-03-03] MEDS: LANTUS PER UNIT CHARGE SQ SCH (08:32)
[2023-03-03] MEDS: UMECLIDINIUM/VILANTEROL 62.5/25MCG 7 PUFFS/INHALER INH SCH (08:34)
[2023-03-03] MEDS: FLUTICASONE FUROATE 200MCG 14 PUFFS/INHALER INH SCH (08:34)
[2023-03-03] MEDS ORDERED: ENOXAPARIN INJ 40 MG/0.4 ML SYR SQ SCH (09:00)
[2023-03-03] MEDS: BUMETANIDE 2 MG in SYRINGE 0 ML IV SCH ×2 (09:44→17:12)
[2023-03-03 09:52] LABS: Estimated Average Glucose 263 mg/dl; Hemoglobin A1C 10.8 % (4.5-5.6)
[2023-03-03] MEDS ORDERED: ENOXAPARIN 100 MG/1ML SYR SQ SCH (11:45)
--- NOTE | 2023-03-03 13:37 | Electrocardiogram Report ---
Test Reason : Blood Pressure : / mmHG Vent. Rate : 099 BPM Atrial Rate : 099 BPM P-R Int : 154 ms QRS Dur : 084 ms QT Int : 358 ms P-R-T Axes : 050 013 052 degrees QTc Int : 459 ms Normal sinus rhythm Low voltage QRS Inferior infarct , age undetermined Abnormal ECG When compared with ECG of 15-FEB-2023 10:37, Inferior infarct is now Present Confirmed by José Miguel Gotti ([id number]) on 03/03/2023 1:37:03 PM Referred By: REFERRED SELF Confirmed By:José Miguel Gotti
--- NOTE | 2023-03-03 14:02 | Nuclear Medicine Report ---
NM pul perfusion CLINICAL HISTORY: r/o PE, contrast allergy. Dyspnea. COMPARISON STUDY: Chest 03/02/2023. TECHNIQUE: Immediately following the intravenous administration of 5.5 mCi of technetium 99 M MAA for the perfusion scan, anterior, oblique, lateral, and posterior views of the chest were obtained. FINDINGS: There is prominence of the cardiac silhouette. No perfusion defects seen within the lungs. IMPRESSION: Above findings suggest a very low probability scan. ACT 112: Negative or not required by law. Electronically signed by: Chester Salas M.D. 03/03/2023 2:01 PM
[2023-03-03] MEDS ORDERED: ALPRAZolam 0.5 MG TABLET PO STA (18:25)
[2023-03-03] MEDS ORDERED: FAMOTIDINE 20 MG in SYRINGE 3 ML IV ONE (18:26)
--- NOTE | 2023-03-03 18:31 | Billing Data ---
Date of Service March 03, 2023 Coding Level of Care Code 23173 SUB INP/OBS CARE MIN
[2023-03-03] MEDS ORDERED: BUMETANIDE 2 MG in SYRINGE 0 ML IV ONE (20:30)
[2023-03-03] MEDS: FAMOTIDINE 20 MG in SYRINGE 3 ML IV SCH (21:51)
[2023-03-03] MEDS: PANTOprazole 40 MG TAB PO SCH (21:52)
[2023-03-03] MEDS: QUEtiapine FUMARATE 200 MG TAB PO SCH (21:53)
[2023-03-04] MEDS: LEVALBUTEROL 1.25 MG/3 ML NEB INH SCH ×5 (02:42→19:23)
[2023-03-04] MEDS: ACETAMINOPHEN 325 MG TAB PO PRN ×2 (04:09→08:05)
[2023-03-04] MEDS: IPRATROPIUM BROMIDE NEB SOLN 0.02% 2.5 ML VIAL NEB SCH ×4 (06:54→19:53)
[2023-03-04] MEDS: BUDESONIDE 0.5 MG/2 ML VIAL (PULMICORT) NEB SCH ×2 (06:54→19:23)
--- NOTE | 2023-03-04 07:15 | Hospitalist Progress Note ---
Date of Service March 04, 2023 Assessment & Plan (1) Non-ST elevation MT (NSTEMI): (2) CHF exacerbation: (3) COPD exacerbation: (4) Tobacco abuse: (5) Elevated troponin: (6) Opiate dependence: (7) Multiple myeloma: (8) History of pulmonary embolism: (9) Diabetes: Plan #Shortness of Breath Multifactorial in nature - chronic COPD, possible COPD exacerbation, diastolic dysfunction and CHF, and significantly uncontrolled anxiety. Patient with baseline poor respiratory status and easy fatigability. Anxiety is definitely a large component as patient reports feeling an improvement in symptoms when she distracts herself with things such as cleaning or cooking. No significant change in patient's respiratory status. I do not believe she is currently in a COPD exacerbation. CHF exacerbation presumed on admission. Bumex was increased to 2 mg IV BID. Home dosing 4 mg PO BID. She may have been slightly fluid overloaded. Breathing and exam improved from a fluid status as this time. As her kidney function continues to demonstrate tolerance of diuresis we will continue this for another day. Continue with home dosing of COPD medications. Encourage cognizance of symptomatology and alleviating/exacerbating factors as her symptoms are multifactorial. V:Q scan without signs of PE #Hypoxia Patient with reported low oxygen saturation overnight. Asymptomatic. Likely there is a component of ELEUTERIO. Will do overnight pulse ox with AM blood gas. Patient aware that if this is abnormal she will need formal outpatient sleep study. AM VBG Overnight Pulse Ox #CHF exacerbation/elevated troponin- The patient will be admitted to telemetry for serial cardiac enzymes, serial EKG's, cardiac rhythm monitoring. Troponin 31.4, peaked at 26.1. ASA given in ED. Most recent echo on 02/16/2023 with ejection fraction 65-70%, with improvement in pericardial effusion compared to 06/13/2022, and mild pulmonary hypertension #COPD/pulmonary hypertension Continue Xopenex nebulizers, increase from 3 times daily to 4 times daily. Continue Atrovent nebulizers 4 times daily. Continue Trelegy Ellipta Hold Xopenex HFA Add Pulmicort Respules 0.5 mg inhaled 2 times daily Consider pulm consult regarding contribution of pulmonary hypertension to difficulty breathing #History of PE on [facility] anticoagulation Weight based dosing 1.5 mg/kg Lovenox QAM. Would consider switching to a DOAC in the future. #Diabetes mellitus Continue glargine 60 units subcu every morning. Place on Accu-Cheks with NovoLog SSI #Chronic pain syndrome/chronic low back pain Continue Suboxone #Anxiety Continue quetiapine and alprazolam. Patient may benefit from initiation of an SSRI or alternative anxiolytic on an outpatient basis as anxiety is definitely contributing to her clinical picture. Code status: full DVT ppx: Lovenox 135 mg QAM FENGI: low sodium, heart healthy Dispo: PCU/tele Admission and Anticipated Discharge Date Admission Date: March 02, 2023 Supervising Physician Co-Signing Physician Notes I personally examined the patient and verified all rosario points of history and exam, discussed case, and agree with decision making with Dr Becky Has a myriad of complaints todayanything from still feeling like she is not breathing well to wondering what she can do for chronic back pain to her life stressors. Does note that Xanax seems to help with her shortness of breath, notes that she walked around the [place] and did have some dyspnea on exertionshe has a hard time comparing it to what her dyspnea on exertion was previously, but in discussing her activities of daily livingit sounds like it is awfully comparable if not identical to her chronic dyspnea on exertion. Vitals noted, in general she is awake and alert pleasant but appears very anxious no physical distress. HEENT normocephalic atraumatic mucous membranes moist. Lungs diffuse faint wheezing and better air entry, no rales. Dyspnea Seems acutely mostly anxiety superimposed on fairly bad chronic COPD, cannot rule out a degree of acute on chronic diastolic CHFparticularly given that she seems to be responding diuresis, starting to be less suspicious there is also a COPD exacerbation. Discussed this with patient openly, discussed starting to have her be able to discern dyspnea from the different causes. Hopefully home soon. Subjective Patient extremely anxious this morning. She was woken overnight by nursing staff for an incidental finding of low oxygen levels. This was distressing to her. Patient denies any fevers or chills. Has not noticed a real change in her breathing or how she is feeling. Review of Systems 2 Review of Systems: See HPI Physical Exam 2 Physical Exam: Gen: patient with interval improvement in breathing. She is no longer labored. Able to speak in full sentences. She is even able to speak in run on tangential sentences without pausing HEENT: AT NC MMM Resp: diffuse wheezing with decreased breath sounds bilaterally at the bases - mild interval improvement CV: tachycardic, regular rhythm, no m/r/g clinically well perfused Ext: 1+ pitting edema with chronic venous stasis changes, no erythema or warmth, no skin breakdown Abd: non-distended Psych: appropriate mood and affect Neuro: alert and oriented MSK: no obvious deformities Results & Data Results & Data Vital Signs (Past 12 Hours) Vital Signs Temp Pulse Resp BP Pulse Ox O2 Del Method O2 Flow Rate 03/04/23 06:56 88 18 93 Room Air 03/04/23 03:00 36.7 C 91 H 20 116/72 94 Nasal Cannula 2 03/04/23 02:42 101 H 19 93 Nasal Cannula 2 03/03/23 22:35 36.6 C 90 18 136/74 93 Room Air 03/03/23 19:25 100 H 19 92 Room Air 03/03/23 19:20 37.1 C 102 H 18 111/75 92 Room Air Laboratory Results 03/04/23 07:22 03/04/23 07:22 Resident Activity Tracking Resident Involvement: Resident Care Provided Care Provided: Adult [facility] Medicine (7) Multiple myeloma Multiple myeloma remission status: unspecified Qualified Code(s): C90.00 - Multiple myeloma not having achieved remission
[2023-03-04 07:38] LABS: Basophils # (auto) 0.07 K/uL (0.00-0.20); Basophils % (auto) 0.6 %; Eosinophils # (auto) 0.45 K/uL (0.00-0.50); Eosinophils % (auto) 3.6 %; Hemoglobin 15.1 g/dl (12.0-16.0); Immature Granulocytes # (auto) 0.03 K/uL (0.01-0.20); Immature Granulocytes % (auto) 0.2 %; Lymphocytes # (auto) 3.54 K/uL (1.20-3.40); Lymphocytes % (auto) 28.3 %; Mean Corpuscular Hemoglobin 26.5 pg (25.0-34.0); Mean Corpuscular Hgb Conc 31.5 g/dL (32.0-36.0); Mean Corpuscular Volume 84.4 fL (80.0-100.0); Mean Platelet Volume 9.2 fL (9.4-12.4); Monocytes # (auto) 0.79 K/uL (0.11-0.59); Monocytes % (auto) 6.3 %; Neutrophils # (auto) 7.62 K/uL (1.40-6.50); Platelet Count 308 K/uL (130-400); RDW Coefficient of Variation 15.5 % (11.5-14.5); RDW Standard Deviation 47.3 fL (36.4-46.3); Red Blood Count 5.69 M/uL (4.20-5.40)
[2023-03-04] MEDS: INSULIN ASPART PER UNIT CHARGE SC SCH ×4 (08:03→21:18)
[2023-03-04] MEDS: ENOXAPARIN 150 MG/ML SYR SQ SCH (08:07)
[2023-03-04] MEDS: BUMETANIDE 2 MG in SYRINGE 0 ML IV SCH ×2 (08:08→17:38)
[2023-03-04] MEDS: PANTOprazole 40 MG TAB PO SCH ×2 (08:09→21:29)
[2023-03-04] MEDS: UMECLIDINIUM/VILANTEROL 62.5/25MCG 7 PUFFS/INHALER INH SCH (08:09)
[2023-03-04] MEDS: FLUTICASONE FUROATE 200MCG 14 PUFFS/INHALER INH SCH (08:10)
[2023-03-04] MEDS: LANTUS PER UNIT CHARGE SQ SCH (08:10)
[2023-03-04] MEDS: POTASSIUM CHLORIDE CRTAB 20 MEQ TABCR PO SCH ×3 (08:10→21:05)
[2023-03-04] MEDS: BUPRENORPHINE/NALOXONE 8/2 MG TAB SL SCH ×2 (08:15→21:11)
[2023-03-04] MEDS: ALPRAZolam 0.5 MG TABLET PO SCH ×2 (08:15→21:17)
[2023-03-04] MEDS: SUCRALFATE 1 GM/10 ML UDC PO SCH ×4 (08:23→21:05)
[2023-03-04 08:32] LABS: Bilirubin,Total 0.6 mg/dl (0.2-1.0); Calcium 9.5 mg/dl (8.6-10.3); Potassium 4.5 mmol/L (3.5-5.1)
[2023-03-04 08:38] LABS: Albumin Globulin Ratio 1.3 (0.9-2); BUN Creatinine Ratio 20.4 (10-20); Creatinine Clr Calc Pharmacy 59.9 ml/min; Est GFR (African American) 67.9 ml/min; Est GFR (Non-African American) 58.6 ml/min; Globulin 3.1 gm/dl (2.5-4.0); Total Protein 7.1 gm/dl (6.0-8.3)
[2023-03-04] MEDS: FAMOTIDINE 20 MG in SYRINGE 3 ML IV SCH ×2 (09:51→21:11)
--- NOTE | 2023-03-04 19:55 | Billing Data ---
Date of Service March 04, 2023 Coding Level of Care Code 82143 SUB INP/OBS CARE
[2023-03-04] MEDS: QUEtiapine FUMARATE 200 MG TAB PO SCH (21:05)
[2023-03-05] MEDS: BUDESONIDE 0.5 MG/2 ML VIAL (PULMICORT) NEB SCH ×2 (07:12→19:18)
[2023-03-05] MEDS: IPRATROPIUM BROMIDE NEB SOLN 0.02% 2.5 ML VIAL NEB SCH ×4 (07:12→19:18)
[2023-03-05] MEDS: LEVALBUTEROL 1.25 MG/3 ML NEB INH SCH ×4 (07:12→19:18)
--- NOTE | 2023-03-05 07:46 | Hospitalist Progress Note ---
Date of Service March 05, 2023 Assessment & Plan (1) Non-ST elevation MO (NSTEMI): (2) CHF exacerbation: (3) COPD exacerbation: (4) Tobacco abuse: (5) Elevated troponin: (6) Opiate dependence: (7) Multiple myeloma: (8) History of pulmonary embolism: (9) Diabetes: Plan #Shortness of Breath Multifactorial in nature - chronic COPD, possible COPD exacerbation, diastolic dysfunction and CHF, and significantly uncontrolled anxiety. Patient with baseline poor respiratory status and easy fatigability. Anxiety is definitely a large component as patient reports feeling an improvement in symptoms when she distracts herself with things such as cleaning or cooking. No significant change in patient's respiratory status. I do not believe she is currently in a COPD exacerbation. CHF exacerbation presumed on admission. Bumex was increased to 2 mg IV BID. Home dosing 4 mg PO BID. She may have been slightly fluid overloaded. Breathing and exam improved from a fluid status as this time. At this point will hold diuresis for now and monitor. Likely will need a low dose of diuretic at home, but it is unclear how much of her presentation is even related to CHF. Continue with home dosing of COPD medications. Encourage cognizance of symptomatology and alleviating/exacerbating factors as her symptoms are multifactorial. V:Q scan without signs of PE resume some dosing diuretic on discharge #Hypoxia Patient with reported low oxygen saturation overnight. Asymptomatic. Likely there is a component of ELEUTERIO. Will do overnight pulse ox with AM blood gas. Patient aware that if this is abnormal she will need formal outpatient sleep study. AM ABG Overnight Pulse Ox - inappropriately done with oxygen on Bedside PFTs #CHF exacerbation/elevated troponin- The patient will be admitted to telemetry for serial cardiac enzymes, serial EKG's, cardiac rhythm monitoring. Troponin 31.4, peaked at 26.1. ASA given in ED. Most recent echo on 02/16/2023 with ejection fraction 65-70%, with improvement in pericardial effusion compared to 06/13/2022, and mild pulmonary hypertension. Likely will need a low dose of diuretic at home, but it is unclear how much of her presentation is even related to CHF. #COPD/pulmonary hypertension Continue Xopenex nebulizers, increase from 3 times daily to 4 times daily. Continue Atrovent nebulizers 4 times daily. Continue Trelegy Ellipta Hold Xopenex HFA Add Pulmicort Respules 0.5 mg inhaled 2 times daily Consider pulm consult regarding contribution of pulmonary hypertension to difficulty breathing #History of PE on [facility] anticoagulation Weight based dosing 1.5 mg/kg Lovenox QAM. Would consider switching to a DOAC in the future. #Diabetes mellitus Continue glargine 60 units subcu every morning. Place on Accu-Cheks with NovoLog SSI #Chronic pain syndrome/chronic low back pain Continue Suboxone #Anxiety Continue quetiapine and alprazolam. Patient may benefit from initiation of an SSRI or alternative anxiolytic on an outpatient basis as anxiety is definitely contributing to her clinical picture. Code status: full DVT ppx: Lovenox 135 mg QAM FENGI: low sodium, heart healthy Dispo: PCU/tele Admission and Anticipated Discharge Date Admission Date: March 02, 2023 Supervising Physician Co-Signing Physician Notes I personally examined the patient and verified all rosario points of history and exam, discussed case, and agree with decision making with Dr Pena Discussed diagnoses and plans in depth. She expressed better understanding has better insight today.. Vitals noted, in general she is awake and alert pleasant but appears very anxious no physical distress. HEENT normocephalic atraumatic mucous membranes moist. Breathing unlabored no accessory muscle use good effort Dyspnea Seems acutely mostly anxiety superimposed on fairly bad chronic COPD, cannot rule out a degree of acute on chronic diastolic CHF but now that she is having some abdominal muscle and foot cramps we will stop the additional Bumex. starting to be less suspicious there is also a COPD exacerbation. have been discussing this with patient openly, discussed starting to have her be able to discern dyspnea from the different causes. Hopefully home soon. repeat overnight pulse ox off of oxygen, get spirometrymight be able to qualify patient for CPAP/BiPAP based on her ventilation/severity of COPD, if not will need a sleep study. Subjective Patient denies any fevers or chills. Has not noticed a real change in her breathing or how she is feeling. Review of Systems 2 Review of Systems: See HPI Physical Exam 2 Physical Exam: Gen: patient with interval improvement in breathing. She is no longer labored. Able to speak in full sentences. She is even able to speak in run on tangential sentences without pausing HEENT: AT NC MMM Resp: diffuse wheezing with decreased breath sounds bilaterally at the bases - mild interval improvement CV: tachycardic, regular rhythm, no m/r/g clinically well perfused Ext: 1+ pitting edema with chronic venous stasis changes, no erythema or warmth, no skin breakdown Abd: non-distended Psych: appropriate mood and affect Neuro: alert and oriented MSK: no obvious deformities Results & Data Results & Data Vital Signs (Past 12 Hours) Vital Signs Temp Pulse Pulse Pulse Pulse Resp BP 03/05/23 07:12 67 16 03/05/23 04:32 36.3 C L 79 18 130/87 03/05/23 03:38 92 H 03/05/23 00:00 92 H 03/04/23 22:52 36.5 C 100 H 16 97/60 L 03/04/23 22:50 90 88 03/04/23 22:07 Pulse Ox Pulse Ox Pulse Ox O2 Del Method O2 Del Method O2 Del Method O2 Flow Rate 03/05/23 07:12 93 Room Air 03/05/23 04:32 97 Nasal Cannula 2 03/05/23 03:38 92 03/05/23 00:00 03/04/23 22:52 92 Nasal Cannula 2 03/04/23 22:50 91 86 L Nasal Cannula Room Air 03/04/23 22:07 Nasal Cannula 2 O2 Flow Rate 03/05/23 07:12 03/05/23 04:32 03/05/23 03:38 2 03/05/23 00:00 03/04/23 22:52 03/04/23 22:50 2 03/04/23 22:07 Laboratory Results 03/05/23 07:53 03/05/23 07:53 Resident Activity Tracking Resident Involvement: Resident Care Provided Care Provided: Adult [facility] Medicine (7) Multiple myeloma Multiple myeloma remission status: unspecified Qualified Code(s): C90.00 - Multiple myeloma not having achieved remission
[2023-03-05] MEDS: INSULIN ASPART PER UNIT CHARGE SC SCH ×4 (08:00→20:15)
[2023-03-05] MEDS: SUCRALFATE 1 GM/10 ML UDC PO SCH ×3 (08:01→17:41)
[2023-03-05] MEDS: BUPRENORPHINE/NALOXONE 8/2 MG TAB SL SCH ×2 (08:06→20:15)
[2023-03-05] MEDS: ENOXAPARIN 150 MG/ML SYR SQ SCH (08:07)
[2023-03-05] MEDS: LANTUS PER UNIT CHARGE SQ SCH (08:07)
[2023-03-05] MEDS: ALPRAZolam 0.5 MG TABLET PO SCH (08:08)
[2023-03-05] MEDS: UMECLIDINIUM/VILANTEROL 62.5/25MCG 7 PUFFS/INHALER INH SCH (08:09)
[2023-03-05] MEDS: POTASSIUM CHLORIDE CRTAB 20 MEQ TABCR PO SCH ×4 (08:09→20:24)
[2023-03-05] MEDS: FLUTICASONE FUROATE 200MCG 14 PUFFS/INHALER INH SCH (08:09)
[2023-03-05] MEDS: BUMETANIDE 2 MG in SYRINGE 0 ML IV SCH (08:11)
[2023-03-05] MEDS: PANTOprazole 40 MG TAB PO SCH ×3 (08:11→20:25)
[2023-03-05] MEDS: FAMOTIDINE 20 MG in SYRINGE 3 ML IV SCH ×2 (08:11→20:25)
[2023-03-05 08:31] LABS: HCO3 VBG 33 mmol/L; Oxygen Saturation VBG 75.8 %; PCO2 VBG 61 mmHg (38-50); PO2 VBG 43 mmHg; pH VBG 7.34 (7.36-7.41)
[2023-03-05 08:40] LABS: Basophils # (auto) 0.05 K/uL (0.00-0.20); Basophils % (auto) 0.5 %; Eosinophils # (auto) 0.37 K/uL (0.00-0.50); Eosinophils % (auto) 3.6 %; Hematocrit (blood only) 46.7 % (37.0-47.0); Hemoglobin 14.8 g/dl (12.0-16.0); Immature Granulocytes # (auto) 0.03 K/uL (0.01-0.20); Immature Granulocytes % (auto) 0.3 %; Lymphocytes # (auto) 3.23 K/uL (1.20-3.40); Lymphocytes % (auto) 31.5 %; Mean Corpuscular Hemoglobin 26.6 pg (25.0-34.0); Mean Corpuscular Hgb Conc 31.7 g/dL (32.0-36.0); Mean Platelet Volume 9.5 fL (9.4-12.4); Monocytes # (auto) 0.66 K/uL (0.11-0.59); Monocytes % (auto) 6.4 %; Neutrophils % (auto) 57.7 %; Platelet Count 308 K/uL (130-400); RDW Coefficient of Variation 15.6 % (11.5-14.5); RDW Standard Deviation 47.6 fL (36.4-46.3); Red Blood Count 5.56 M/uL (4.20-5.40); White Blood Count 10.24 K/ul (4.8-10.8)
[2023-03-05 08:52] LABS: Albumin Globulin Ratio 1.3 (0.9-2); Albumin Level 3.9 gm/dl (3.4-5.0); Bilirubin,Total 0.5 mg/dl (0.2-1.0); Calcium 9.6 mg/dl (8.6-10.3); Creatinine Clr Calc Pharmacy 61.4 ml/min; Est GFR (African American) 70.4 ml/min; Est GFR (Non-African American) 60.8 ml/min; Globulin 3.1 gm/dl (2.5-4.0); Potassium 4.7 mmol/L (3.5-5.1)
[2023-03-05] MEDS ORDERED: ALPRAZolam 0.5 MG TABLET PO STA (17:34)
--- NOTE | 2023-03-05 17:35 | Billing Data ---
Date of Service March 05, 2023 Coding Level of Care Code 57848 SUB INP/OBS CARE MIN
[2023-03-05 19:29] LABS: Base Excess ABG 8.6 mEq/L (-9-1.8); HCO3 ABG 34 mmol/L (19-24); Oxygen Saturation ABG 94.6 % (90-95); PCO2 ABG 46 mmHg (35-46); PO2 ABG 66 mmHg (80-95); pH ABG 7.47 (7.35-7.45)
[2023-03-05 19:48] LABS: Allen Test Pos (Pos)
[2023-03-05] MEDS: QUEtiapine FUMARATE 200 MG TAB PO SCH (20:17)
[2023-03-06 06:20] LABS: Base Excess ABG 7.2 mEq/L (-9-1.8); HCO3 ABG 33 mmol/L (19-24); Oxygen Saturation ABG 92.9 % (90-95); PCO2 ABG 48 mmHg (35-46); PO2 ABG 61 mmHg (80-95); pH ABG 7.44 (7.35-7.45)
[2023-03-06 06:41] LABS: Allen Test Pos (Pos)
[2023-03-06 06:41] LABS: Base Excess VBG 6.1 mEq/L; HCO3 VBG 34 mmol/L; Oxygen Saturation VBG < 60.0 %; PCO2 VBG 58 mmHg (38-50); PO2 VBG 33 mmHg; pH VBG 7.37 (7.36-7.41)
[2023-03-06] MEDS: BUDESONIDE 0.5 MG/2 ML VIAL (PULMICORT) NEB SCH (07:03)
[2023-03-06] MEDS: IPRATROPIUM BROMIDE NEB SOLN 0.02% 2.5 ML VIAL NEB SCH ×3 (07:04→15:55)
[2023-03-06] MEDS: LEVALBUTEROL 1.25 MG/3 ML NEB INH SCH ×3 (07:04→15:55)
[2023-03-06 07:21] LABS: Albumin Globulin Ratio 1.2 (0.9-2); Albumin Level 4.1 gm/dl (3.4-5.0); BUN Creatinine Ratio 31.4 (10-20); Bilirubin,Total 0.5 mg/dl (0.2-1.0); Calcium 10.1 mg/dl (8.6-10.3); Creatinine Clr Calc Pharmacy 87.3 ml/min; Est GFR (African American) 108.4 ml/min; Est GFR (Non-African American) 93.5 ml/min; Globulin 3.3 gm/dl (2.5-4.0); Magnesium 2.2 mg/dl (1.7-2.4); Potassium 3.8 mmol/L (3.5-5.1); Total Protein 7.4 gm/dl (6.0-8.3)
[2023-03-06 07:36] LABS: Basophils # (auto) 0.06 K/uL (0.00-0.20); Basophils % (auto) 0.5 %; Eosinophils # (auto) 0.44 K/uL (0.00-0.50); Eosinophils % (auto) 3.7 %; Hematocrit (blood only) 47.1 % (37.0-47.0); Immature Granulocytes # (auto) 0.04 K/uL (0.01-0.20); Immature Granulocytes % (auto) 0.3 %; Lymphocytes # (auto) 3.21 K/uL (1.20-3.40); Mean Corpuscular Hemoglobin 26.6 pg (25.0-34.0); Mean Corpuscular Hgb Conc 31.8 g/dL (32.0-36.0); Mean Corpuscular Volume 83.5 fL (80.0-100.0); Mean Platelet Volume 9.7 fL (9.4-12.4); Monocytes # (auto) 0.68 K/uL (0.11-0.59); Monocytes % (auto) 5.7 %; Neutrophils # (auto) 7.48 K/uL (1.40-6.50); Neutrophils % (auto) 62.8 %; Platelet Count 341 K/uL (130-400); RDW Coefficient of Variation 15.6 % (11.5-14.5); RDW Standard Deviation 46.6 fL (36.4-46.3); Red Blood Count 5.64 M/uL (4.20-5.40); White Blood Count 11.91 K/ul (4.8-10.8)
[2023-03-06] MEDS: INSULIN ASPART PER UNIT CHARGE SC SCH ×2 (08:33→12:48)
[2023-03-06] MEDS: SUCRALFATE 1 GM/10 ML UDC PO SCH ×2 (08:33→12:49)
[2023-03-06] MEDS: BUPRENORPHINE/NALOXONE 8/2 MG TAB SL SCH (08:34)
[2023-03-06] MEDS: ENOXAPARIN 150 MG/ML SYR SQ SCH (08:34)
[2023-03-06] MEDS: ALPRAZolam 0.5 MG TABLET PO SCH ×2 (08:34→16:31)
[2023-03-06] MEDS: POTASSIUM CHLORIDE CRTAB 20 MEQ TABCR PO SCH ×2 (08:35→15:02)
[2023-03-06] MEDS: PANTOprazole 40 MG TAB PO SCH (08:35)
[2023-03-06] MEDS: FAMOTIDINE 20 MG in SYRINGE 3 ML IV SCH (08:35)
[2023-03-06] MEDS: LANTUS PER UNIT CHARGE SQ SCH (08:35)
[2023-03-06] MEDS ORDERED: NYSTATIN CR 15 GM TUBE EXT PRN (09:41)
--- NOTE | 2023-03-06 10:04 | Discharge Summary ---
Date of Service March 06, 2023 Admission HPI Per Admitting Provider The patient is a 62-year-old female with a past medical history including COPD, tobacco abuse, CHF, opiate dependence, multiple myeloma, chronic low back pain, history of pulmonary embolism and diabetes mellitus. She presents to the emergency department with worsening symptoms of lower extremity edema and shortness of breath as noted above Admission Exam Per Admitting Provider The patient is awake, alert and oriented 3, well developed and well nourished, normocephalic and atraumatic, lying in bed and in no acute distress. HEENT--PERRL, EOMI, mucous membranes and oropharynx normal Neck--supple. No JVD. No bruits. Thyroid normal, trachea midline, no adenopathy. Heart--normal S1 and S2. No murmurs, rubs or gallops. Lungs- coarse breath sounds with wheezes bilaterally, overall decreased breath sounds throughout. No respiratory distress, no accessory muscle use. Abdomen--normal bowel sounds and soft. Nontender. Nondistended. Obese Extremities--no cyanosis or clubbing. 1+ bilateral pretibial pitting edema. Dermatologic--normal skin turgor, normal color, no abnormal lymph nodes, no rash. Neurologic--cranial nerves II through XII grossly intact. Rheumatologic--normal range of motion. Psychiatric--normal affect. Principal Diagnosis SOB Discharge Exam Gen: patient with interval improvement in breathing. She is no longer labored. Able to speak in full sentences. She is even able to speak in run on tangential sentences without pausing HEENT: AT NC MMM Resp: diffuse wheezing with decreased breath sounds bilaterally at the bases - mild interval improvement CV: tachycardic, regular rhythm, no m/r/g clinically well perfused Ext: 1+ pitting edema with chronic venous stasis changes, no erythema or warmth, no skin breakdown Abd: non-distended Psych: appropriate mood and affect Neuro: alert and oriented MSK: no obvious deformities Discharge Data Allergies Allergy/AdvReac Type Severity Reaction Status Date / Time codeine Allergy Severe Anaphylaxis Verified 03/02/23 19:48 Iodinated Contrast Media Allergy Severe Anaphylaxis Verified 03/02/23 19:48 shellfish derived Allergy Severe Anaphylaxis Verified 03/02/23 19:48 tramadol Allergy Intermediate ITCHINESS Verified 03/02/23 19:48 iohexol Allergy Unknown CAN'T Verified 03/02/23 19:48 REMEMBER diphenhydramine AdvReac Severe Anxiety Verified 03/02/23 19:48 [From Benadryl] montelukast [From Singulair] AdvReac Intermediate Anxiety Verified 03/02/23 19:48 promethazine AdvReac Intermediate Anxiety Verified 03/02/23 19:48 Consultations 03/02/23 19:21 ED Decision to Admit Stat Hospital Course (1) Non-ST elevation NE (NSTEMI): (2) CHF exacerbation: (3) COPD exacerbation: (4) Tobacco abuse: (5) Elevated troponin: (6) Opiate dependence: (7) Multiple myeloma: (8) History of pulmonary embolism: (9) Diabetes: (10) Hypoventilation syndrome: Plan #Shortness of Breath Multifactorial in nature - chronic COPD, possible COPD exacerbation, diastolic dysfunction and CHF, and significantly uncontrolled anxiety. Patient with baseline poor respiratory status and easy fatigability. Anxiety is definitely a large component as patient reports feeling an improvement in symptoms when she distracts herself with things such as cleaning or cooking. No significant change in patient's respiratory status. I do not believe she is currently in a COPD exacerbation. V:Q scan without signs of PE. CXR without signs of consolidation. No leukocytosis or respiratory virus noted. CHF exacerbation presumed on admission. Bumex was increased to 2 mg IV BID. Home dosing 4 mg PO BID. She may have been slightly fluid overloaded. Breathing and exam improved from a fluid status as this time. At this point will hold diuresis for now and monitor. Likely will need a low dose of diuretic at home, but it is unclear how much of her presentation is even related to CHF. Continue with home dosing of COPD medications. Encourage cognizance of symptomatology and alleviating/exacerbating factors as her symptoms are multifactorial. #Hypoxia #Hypoventilation Syndrome Patient with reported low oxygen saturation overnight. Asymptomatic. Likely there is a component of ELEUTERIO and possibly hypoventilation syndrome. Patient with multiple desaturations overnight < 88% for more than 5 minutes. In addition spirometry is consistent with moderate to severe COPD. Patient a good candidate for Trilogy. Patient with chronic respiratory failure due to COPD now requires NIV for home. Patient has had multiple hospitalizations in the past year for respiratory failure. BiPAP has been considered and ruled out due to its inability to provide adequate ventilatory support. NIV provides AVAPS-AE mode and longer expiratory time to reduce effects of flow limitation and air trapping. This will decrease the work of breathing and decrease CO2. Continuous alarm systems and battery backup is also required in the event of power outage. It must be understood that patient is a severe risk of respiratory failure and serious harm to patient pulmonary will being will incur without the use of NIV at home. Removal of the NIV would potentially cause re hospitalization and even possible . #CHF exacerbation/elevated troponin- The patient will be admitted to telemetry for serial cardiac enzymes, serial EKG's, cardiac rhythm monitoring. Troponin 31.4, peaked at 26.1. ASA given in ED. Most recent echo on 02/16/2023 with ejection fraction 65-70%, with improvement in pericardial effusion compared to 06/13/2022, and mild pulmonary hypertension. Likely will need a low dose of diuretic at home, but it is unclear how much of her presentation is even related to CHF. #COPD/pulmonary hypertension Continue Xopenex nebulizers, increase from 3 times daily to 4 times daily. Continue Atrovent nebulizers 4 times daily. Continue Trelegy Ellipta. Patient at baseline oxygenation status. #History of PE on superintendent container terminal anticoagulation Weight based dosing 1.5 mg/kg Lovenox QAM 135 mg. Would consider switching to a DOAC in the future. #Diabetes mellitus Continue glargine 60 units subcu every morning. Place on Accu-Cheks with NovoLog SSI #Chronic pain syndrome/chronic low back pain Continue Suboxone #Anxiety Continue quetiapine and alprazolam. Patient may benefit from initiation of an SSRI or alternative anxiolytic on an outpatient basis as anxiety is definitely contributing to her clinical picture. Total Time Total Time Spent Total Time Spent (In Minutes): <30 Discharge Plan Discharge Items Patient Disposition: Home - Self-Care Reason For Visit: ACUTE ON CHRONIC RESPIRATORY FAILURE Discharge Diagnosis: hypoventilation syndrome Activity: Per Instructions section Non-emergency contact: Primary Care Provider and Wall Washer Call non-emergency contact if: your symptoms worsen and your temperature is above 101.5 Follow-up/Referrals: Radha Barboza PA-C [Primary Care Provider] - Cayetano Hargrove DO [Resident] - Diet: Heart Healthy Addtl Attending Provider Instructions: You were seen in the hospital for shortness of breath. As we discussed there are many factors that contribute to your shortness of breath. You have COPD which impairs your breathing at baseline. This can also flare up in times of illness. You may have a component of CHF as well. I would recommend a low sodium diet to help keep this from flaring. In addition you have significant social stressors and anxiety. All of these things feel exactly the same in terms of shortness of breath. In order to differentiate between the different causes I would recommend a few steps to help you decide if you need to go to the hospital or not. If you are feeling short of breath that is worse than baseline 1. check your oxygen saturation with a pulse oximeter - if this is greater than 90% then we have some times to figure out why you feel short of breath 2. if you have any new lung symptoms such as a change in cough, change in phlegm, fevers, or chills then you may have a COPD exacerbation or viral illness - this would prompt you to see your PCP If there are no new lung symptoms then we should evaluate if this is due to your CHF. 3. Take a short walk. If your breathing with walking feels like it is as its baseline then this is less likely a CHF exacerbation. If your breathing feels worse or more labored - this would prompt you to see your PCP for a possible CHF exacerbation If all of this is normal with no changes then your symptoms are more likely to be due to acute anxiety. Though shelter Xanax is not a great solution in the interim you can use it when your shortness of breath is anxiety related. I would strongly recommend smoking cessation as smoking will only worsen these symptoms You did end up qualifying for Trilegy, which is an outpatient device that will help you to breath while you're sleeping. Wear this whenever you are planning to fall asleep. It may be uncomfortable in the beginning. I would recommend starting by wearing the device for a few hours a day while awake to become more comfortable with the device. Until you receive the device I would recommend wearing oxygen to sleep. I did increase your dose of Lovenox to 135 mg daily. Thank you for allowing us to participate in your care. If you have any questions let us know Pending Studies at Discharge: No Stand-Alone Forms: My [facility], Smoking Cessation Medications and DC Order Prescriptions: New enoxaparin [Lovenox] 150 mg/mL Syringe 135 mg subcut QAM Qty: 10 1RF Continued ondansetron HCl 4 mg Tablet 4 mg PO Q8H PRN (Reason: NAUSEA/VOMITING) quetiapine 200 mg tablet 200 mg PO HS nystatin 100,000 unit/gram Powder 1 applic TOPICAL BID PRN (Reason: UNDER BREASTS NEEDED.) levalbuterol tartrate [Xopenex HFA] 45 mcg/actuation Hfa Aerosol Inhaler 2 inh INHALATION TID buprenorphine-naloxone 8-2 mg film 1 film sublingual BID Trelegy Ellipta 200-62.5-25 mcg blister with device 1 inh INHALATION DAILY insulin aspart U-100 100 unit/mL (3 mL) insulin pen 0 unit SUBCUT TIDWMEAL Rx Instructions: Per sliding scale insulin glargine 100 unit/mL (3 mL) insulin pen 60 unit SUBCUT QAM alprazolam 0.5 mg tablet 0.5 mg PO BID Qty: 14 0RF bumetanide 2 mg tablet 4 mg PO BID potassium chloride 20 mEq tablet extended release 20 meq PO BID levalbuterol HCl 1.25 mg/3 mL solution for nebulization 1.25 mg INHALATION TID ipratropium bromide 0.02 % solution 3 ml continuous nebulization QID Discontinued enoxaparin 100 mg/mL syringe 100 mg subcut QAM Discharge Orders: Discharge Order (Routine); Ordered 03/06/23 Ordered By: Spring Barbour/Other Patient Handouts: Asthma and COPD, Diabetes and Heart Disease, Normal Breathing During Sleep Admission Data Admit Date/Time: 03/02/23 20:39 Attending Provider: Robby Dickinson Admit Provider: Casey Aguilar Primary Care Provider: Radha Barboza Other Providers: Casey Aguilar Other Interventions: Discharge Summary Assessment (RN) Last Done: 03/06/23 16:40 Supervising Physician Co-Signing Physician Notes I personally examined the patient and verified all orsario points of history and exam, discussed case, and agree with decision making with Dr Pena Discussed diagnoses and plans in depth. She expressed ovreall better unde rstanding has better insight today. Device will be able to be set upfor now she will go home with oxygen at bedtime, but by next week she should be on to have a device. Vitals noted, in general she is awake and alert pleasant but appears very anxious no physical distress. HEENT normocephalic atraumatic mucous membranes moist. Breathing unlabored no accessory muscle use good effort Dyspnea Seems acutely mostly anxiety superimposed on fairly bad chronic COPD, (PFTs look restrictive, and it could be that there is a combination of obstructive from smoking-related lung disease and restrictive from having most of her weight be central, at the same time given how low her volumes are overall, I do wonder if she is not just starting to descend into a severe almost end-stage COPD airflow pattern) cannot rule out a degree of acute on chronic diastolic CHF but this would have been mild at worst. overall less suspicious there is also a COPD exacerbation. have been discussing this with patient openly, discussed starting to have her be able to discern dyspnea from the different causes. home today close outpatient follow-up Resident Activity Tracking Resident Involvement: Resident Care Provided Care Provided: Adult Hospital Medicine
--- NOTE | 2023-03-06 12:44 | Procedure Note ---
Procedure Note Date of Service March 06, 2023 Note Bedside spirometry reveals a nonspecific parallel decline in FEV1 and FVC concerning for restriction. Plethysmography and diffusion testing recommended to further characterize these findings. Please clinically correlate with history, exam and chest imaging. Coding CPT Codes Pulmonary/Thoracic - Pulmonary and Thoracic: 24280 Plethysmography - lung volumes, airway res ([id number]) [facility] [place] (Charges) Pulmonary/Thoracic Procedure 1: Pulmonary and Thoracic: 79140 Plethysmography - lung volumes, airway res
[2023-03-06] MEDS: UMECLIDINIUM/VILANTEROL 62.5/25MCG 7 PUFFS/INHALER INH SCH (12:47)
[2023-03-06] MEDS: FLUTICASONE FUROATE 200MCG 14 PUFFS/INHALER INH SCH (12:47)
--- NOTE | 2023-03-06 19:15 | Billing Data ---
Date of Service March 06, 2023 Coding Level of Care Code 68169 IN/OBS DISCH 30 MIN/LESS
--- OUTSIDE RECORDS SUMMARY | 2023-03-07 10:49 | External Medical Summary | Continuity of Care Document ---
Author Name Unknown Organization [facility] [address] [address] [place] [id number] Care Team Providers Care Tie Man Name Role Phone Radha Barboza Primary Care Physician [phone] Encounter [facility] [id number] Date(s): 01/16/23 - 01/16/23 [facility] [address] [address] [phone] Encounter Diagnosis Body mass index [BMI] 37.0-37.9, adult(Discharge Diagnosis) - 01/16/23 Congestive heart failure(Discharge Diagnosis) - 01/15/23 Chronic prescription opiate use(Discharge Diagnosis) - 01/18/23 Discharge Disposition: Home or Self Care Attending Physician: ELENA Barboza Kimberly A Allergies, Adverse Reactions, Alerts Substance Reaction Severity Status codeine Active iodine topical Active Phenergan Itchy Rash Moderate Active shellfish Active Benedryl Allergy Sinus Activ e Medications ALPRAZolam 0.25 mg oral tablet Start: 07/22/22 12:26:00 EDT, 1 tab, PO, bid, Disp# 60 tab, Refills: 0, TAKE 1 TABLET BY MOUTH TWICE A DAY NEEDED FOR ANXIETY, Note to Pharmacy: PMDP queried, Pharmacy: [facility]/pharmacy #[id number] Start Date: 07/22/22 Stop Date: 08/21/22 Status: Ordered Apidra SoloStar Pen Start: 09/25/14 10:17:00 Start Date: 09/25/14 Status: Ordered busPIRone 7.5 mg oral tablet Start: 07/08/22 11:12:00 EDT, 1 tab, PO, tid Start Date: 07/08/22 Status: Ordered Compazine 10 mg oral tablet Start: 11/21/14 13:00:00, 1 tab, PO, q4h, Disp# 60 tab, Refills: 2, PRN: Nausea, Pharmacy: [facility], 1 tab PO q4h,PRN:Nausea Start Date: 11/21/14 Status: Ordered Lantus Solostar Pen Start: 09/25/14 10:14:00, 55 unit =, subQ, Daily Start Date: 09/25/14 Status: Ordered Lasix 80 mg oral tablet Start: 07/22/22 12:19:00 EDT, 1 tab, PO, Daily, Disp# 30 tab, Pharmacy: [facility]/pharmacy #[id number] Start Date: 07/22/22 Stop Date: 08/21/22 Status: Ordered levalbuterol CFC free 45 mcg/inh inhalation aerosol Start: 07/08/22 11:13:00 EDT, 1 puff, inhaled, q4h, PRN: as needed for wheezing Start Date: 07/08/22 Status: Ordered ondansetron 4 mg oral tablet, disintegrating Start: 07/22/22 12:15:00 EDT, 1 tab, PO, q8h, Disp# 30 tab, Refills: 1, PRN: as needed for nausea/vomiting, Pharmacy: [facility]/pharmacy #[id number] Start Date: 07/22/22 Status: Ordered Potassium Chloride (Eqv-K-Tab) 20 mEq oral tablet, extended release Start: 07/22/22 12:17:00 EDT, 1 tab, PO, bid, Disp# 60 tab, Pharmacy: [facility]/pharmacy #[id number] Start Date: 07/22/22 Status: Ordered potassium chloride 20 mEq oral tablet, extended release Start: 11/21/14 13:00:00, 20 mEq =, PO, bid, Disp# 60 tab, Refills: 2, Pharmacy: [facility], 20 mEq PO bid Start Date: 11/21/14 Status: Ordered QUEtiapine 200 mg oral tablet Start: 07/08/22 11:13:00 EDT, 1 tab, PO, Daily Start Date: 07/08/22 Status: Ordered SEROquel 400 mg oral tablet Start: 11/21/14 14:24:00, 400 mg =, PO, bid, Disp# 4 tab, Refills: 0, Pharmacy: [facility], 400 mg PO bid Start Date: 11/21/14 Status: Ordered Suboxone 8 mg-2 mg sublingual film Start: 07/08/22 11:16:00 EDT Start Date: 07/08/22 Status: Ordered TEGretol 200 mg oral tablet Start: 11/21/14 14:23:00, See Instructions, Disp# 5 tab, Refills: 0, Take 1 tab p.o. qAM and 2 tabsp.o. qPM, Pharmacy: [facility], Take 1 tab p.o. qAM and 2 tabs p.o. qPM Start Date: 11/21/14 Status: Ordered Trelegy Ellipta 200 mcg-62.5 mcg-25 mcg/inh inhalation powder Start: 07/08/22 11:13:00 EDT Start Date: 07/08/22 Status: Ordered Problem List Condition Confirmation Course Effective Dates Status Health St [facility] Informant Anxiety Confirmed Active Bipolar disease, chronic Confirmed Active Cataract Confirmed Active Chalazion of right upper eyelid Confirmed Active Chronic eczema Confirmed Active Congestive heart failure Confirmed Active Diabetes Confirmed Active Shortness of breath Confirmed Active History of ovarian cancer Confirmed Active Plasma cell myeloma Confirmed Active Chemotherapy-induce d nausea Confirmed Active Chronic prescription opiate use Confirmed Active Seasonal allergies Confirmed Active Tobacco user Confirmed Active Weight disorder Confirmed Active Diagnosis Diagnosis Type Effective Dates Health Status Clinical Service Informant Congestive heart failure Discharge Diagnosis 01/15/23 Body mass index [BMI] 37.0-37.9, adult Discharge Diagnosis 01/16/23 Non-Specified Chronic prescription opiate use Discharge Diagnosis 01/18/23 Procedures Procedure Date Related Diagnosis Body Site Status Bone marrow biopsy 2013 [facility] Vital Signs Most recent to oldest [Reference Range]: 1 Height 157.8 cm (01/16/23 8:00 AM) Patient Weight 92.7 kg (01/16/23 8:00 AM) Body Mass Index 37.23 kg/m2 (01/16/23 8:00 AM) Heart Rate 107 bpm (01/16/23 7:53 AM) Respiratory Rate 22 br/min (01/16/23 7:53 AM) Blood Pressure 160/82mmHg (01/16/23 7:58 AM) Cuff Pulse Pressure 78 mmHg (01/16/23 7:58 AM) Social History Social History Type Response Smoking Status Current every day vivien urena smoker Sex Female Patient Care team information Care Team Personnel Name: ELENA Barboza, Radha Bhatia Position: Physician Directory Clerk - Family Med Member Role: Primary Care Provider Address: Address: [address] [facility] [address] [place] [id number] Name: MARGARET Dunn Jo Ann M Position: Nurse Pract - Hem/Onc Member Role: Lifetime Relationship Address: Address: [address] [place] [id number] Care Team Related Persons Name: MO SAMUEL Address: home [place]
--- OUTSIDE RECORDS SUMMARY | 2023-03-07 10:49 | External Medical Summary | Continuity of Care Document ---
Author Name Unknown Organization [facility] [address] [place] [phone] Care Team Providers Care Insurance Compliance Analyst Name Role Phone Radha Barboza Jannette Primary Care Physician [phone] [id number] Date[facility] 02/10/[facility] - 02/10/[address] [facility] 207 [facility] 1850 [facility] [address] [place] [address] [phone] Encounter Diagnosis Localized edema(Final) - Discharge Disposition: Home or Self Care Attending Physician: MD Eduar, Flakito B Allergies, Adverse Reactions, Alerts Substance Reaction Severity Status codeine Active iodine topical Active Phenergan Itchy Rash Moderate Active shellfish Active Benedryl Allergy Sinus Activ e Medications ALPRAZolam 0.5 mg oral tablet, disintegrating Start: 01/26/23 16:49:00 EDT, 1 tab, PO, bid, Disp# 60 tab, Refills: 2, Note to Pharmacy: Please disregard prescription for Alprazolam 0.25mg; Thank you, Pharmacy: [facility]/pharmacy #[id number] Start Date: 01/26/23 Status: Ordered Apidra SoloStar Pen Start: 09/25/14 10:17:00 Start Date: 09/25/14 Status: Ordered Bumex 2 mg oral tablet Start: 01/26/23 16:58:00 EDT, See Instructions, Disp# 60 tab, 2 in AM, 2 at lunchtime, Pharmacy: [facility]/pharmacy #[id number] Start Date: 01/26/23 Status: Ordered busPIRone 7.5 mg oral tablet Start: 07/08/22 11:12:00 EDT, 1 tab, PO, tid Start Date: 07/08/22 Status: Ordered Compazine 10 mg oral tablet Start: 11/21/14 13:00:00, 1 tab, PO, q4h, Disp# 60 tab, Refills: 2, PRN: Nausea, Pharmacy: [facility], 1 tab PO q4h,PRN:Nausea Start Date: 11/21/14 Status: Ordered Lantus Solostar Pen Start: 09/25/14 10:14:00, 55 unit =, subQ, Daily Start Date: 09/25/14 Status: Ordered levalbuterol CFC free 45 mcg/inh inhalation aerosol Start: 07/08/22 11:13:00 EDT, 1 puff, inhaled, q4h, PRN: as needed for wheezing Start Date: 07/08/22 Status: Ordered ondansetron 4 mg oral tablet, disintegrating Start: 07/22/22 12:15:00 EDT, 1 tab, PO, q8h, Disp# 30 tab, Refills: 1, PRN: as needed for nausea/vomiting, [id number] Start Date: 07/22/22 Status: Ordered Potassium Chloride (Eqv-K-Tab) 20 mEq oral tablet, extended release Start: 02/10/23 14:25:00 EDT, 1 tab, PO, bid, Disp# 60 tab, Refills: 0, Pharmacy: [id number] Start Date: 02/10/23 Status: Ordered QUEtiapine 200 mg oral tablet Start: 02/09/23 7:23:00 EDT, 1 tab, PO, Daily, Disp# 30 tab, Refills: 3, [id number] Start Date: 02/09/23 Stop Date: 06/09/23 Status: Ordered Suboxone 8 mg-2 mg sublingual film Start: 02/09/23 7:53:00 EDT, 1 patch, SL, bid, Disp# 60 patch, Refills: 0, dissolve under the tongue, Note to Pharmacy: may substitute tablet or film, Pharmacy: [facility]/pharmacy #[id number] Start Date: 02/09/23 Stop Date: 03/11/23 Status: Ordered TEGretol 200 mg oral tablet Start: 11/21/14 14:23:00, See Instructions, Disp# 5 tab, Refills: 0, Take 1 tab p.o. qAM and 2 tabsp.o. qPM, Pharmacy: [facility], Take 1 tab p.o. qAM and [...] Active History of ovarian cancer Confirmed Active Insomnia Confirmed Active Plasma cell myeloma Confirmed Active Chemotherapy-induce d nausea Confirmed Active Opioid use disorder in remission Confirmed Active Hospital discharge follow-up Confirmed Active Chronic prescription opiate use Confirmed Active Seasonal allergies Confirmed Active Tobacco user Confirmed Active Weight disorder Confirmed Active Procedures Procedure Date Related Diagnosis Body Site Status Bone marrow biopsy 2013 [facility] ganesh Results Laboratory List Name Date Comprehensive Metabolic Panel (COMP META B PANEL) 02/10/23 Most recent to oldest [Reference Range]: 1 eGFR CKD-EPI [>60 mL/min/1.73 m2] 74 mL/ min/1.73 m2 1 (02/10/23 11:39 AM) Estimated CrCl 71.92 mL/min (02/10/23 4:14 PM) Anion Gap [5-14 mmol/L] 8 mmol/L (02/10/23 11:39 AM) Alb [3.5-5.0 g/dL] 3.9 g/dL (02/10/23 11:39 AM) Alk Phos [38-126 unit/L] 116 unit/L (02/10/23 11:39 AM) ALT [<35 unit/L] 22 unit/L (02/10/23 11:39 AM) AST [15-46 unit/L] 29 unit/L (02/10/23 11:39 AM) BUN [7-20 mg/dL] 19 mg/dL (02/10/23 11:39 AM) Ca [8.4-10.2 mg/dL] 9.2 mg/dL (02/10/23 11:39 AM) Cl- [96-107 mmol/L] 92 mmol/L *LOW* (02/10/23 11:39 AM) HCO3 [22-30 mmol/L] 38 mmol/L *HI* (02/10/23 11:39 AM) Cret [0.60-1.00 mg/dL] 0.89 mg/dL (02/10/23 11:39 AM) Glu [74-106 mg/dL] 253 mg/dL *HI* (02/10/23 11:39 AM) K [3.5-5.1 mmol/L] 3.7 mmol/L (02/10/23 11:39 AM) Na [137-145 mmol/L] 138 mmol/L (02/10/23 11:39 AM) T Bili [0.2-1.3 mg/dL] 0.3 mg/dL (02/10/23 11:39 AM) Prot [6.3-8.2 g/dL] 7.2 g/dL (02/10/23 11:39 AM) 1Result Comment: Testing Performed By: Dept of Pathology [facility], [address] [place] [id number] Social History Social History Type Response Sm[facility] Status [facility] Female Patient Care team information Care Team Personnel Name: ELENA Barboza Kimberly A Position: Physician Appeals Board Referee - Family Med Member Role: Primary Care Provider Address: Address: [address] [facility] [address] [place] [address] Name: MARGARET Dunn Jo Ann M Position: Nurse Pract - Hem/Onc Member Role: Lifetime Relationship Address: Address: [address] [place] [id number] Care Team Related Persons Name: MO SAMUEL Address: [facility]
--- OUTSIDE RECORDS SUMMARY | 2023-03-07 10:49 | External Medical Summary | Continuity of Care Document ---
Author Name Unknown Organization [facility] [address] [address] [place] [phone] Care Team Providers Care Human Resources Receptionist Name Role Phone Radha Barboza Primary Care Physician [phone] Encounter [facility] [id number] Date(s): 02/23/23 - 02/23/23 [facility] [place] [place] 207 [facility] 1850 [facility] 207 [place] [address] [phone] Discharge Disposition: Home or Self Care Attending Physician: ELENA Barboza Kimberly A Allergies, Adverse Reactions, Alerts Substance Reaction Severity Status codeine Active iodine topical Active Phenergan Itchy Rash Moderate Active shellfish Active Benedryl Allergy Sinus Activ e Medications ALPRAZolam 0.5 mg oral tablet Start: 02/17/23 15:02:00 EDT, 1 tab, PO, bid, Disp# 60 tab, Refills: 5, Note to Pharmacy: Please void previous prescriptions of Alprazolam. KAA, PRN: as needed for anxiety, Pharmacy: [facility]/pharmacy #[id number] Start Date: 02/17/23 Status: Ordered azithromycin 250 mg oral tablet Start: 02/17/23 14:39:00 EDT, 1 tab, PO, Daily Start Date: 02/17/23 Status: Ordered bumetanide 2 mg oral tablet Start: 02/24/23 13:12:00 EDT, See Instructions, Disp# 60 tab, Refills: 0, TAKE 2 TABLETS BY MOUTH IN THE MORNING AND 2 TABLET AT LUNCHTIME, Pharmacy: [id number] Start Date: 02/24/23 Status: Ordered busPIRone 7.5 mg oral tablet Start: 07/08/22 11:12:00 EDT, 1 tab, PO, tid Start Date: 07/08/22 Status: Ordered Compazine 10 mg oral tablet Start: 11/21/14 13:00:00, 1 tab, PO, q4h, Disp# 60 tab, Refills: 2, PRN: Nausea, Pharmacy: [facility], 1 tab PO q4h,PRN:Nausea Start Date: 11/21/14 Status: Ordered doxycycline hyclate 100 mg oral tablet Start: 02/17/23 14:39:00 EDT, 1 tab, PO, bid Start Date: 02/17/23 Status: Ordered enoxaparin 150 mg/mL injectable solution Start: 02/17/23 14:41:00 EDT, 150 mg =, subQ, Daily Start Date: 02/17/23 Status: Ordered Lantus Solostar Pen Start: 09/25/14 10:14:00, 55 unit =, subQ, Daily Start Date: 09/25/14 Status: Ordered levalbuterol CFC free 45 mcg/inh inhalation aerosol Start: 07/08/22 11:13:00 EDT, 1 puff, inhaled, q4h, PRN: as needed for wheezing Start Date: 07/08/22 Status: Ordered NovoLOG FlexPen 100 units/mL injectable solution Start: 02/17/23 15:10:00 EDT, 10 unit =, subQ, ac, Disp# 15 mL, Refills: 5, Pharmacy: [facility]/pharmacy #[id number] Start Date: 02/17/23 Status: Ordered ondansetron 4 mg oral tablet, disintegrating Start: 07/22/22 12:15:00 EDT, 1 tab, PO, q8h, Disp# 30 tab, Refills: 1, PRN: as needed for nausea/vomiting, Pharmacy: [facility]/pharmacy #[id number] Start Date: 07/22/22 Status: Ordered Potassium Chloride (Eqv-K-Tab) 20 mEq oral tablet, extended release Start: 02/10/23 14:25:00 EDT, 1 tab, PO, bid, Disp# 60 tab, Refills: 0, Pharmacy: [id number] Start Date: 02/10/23 Status: Ordered predniSONE 10 mg oral tablet Start: 02/17/23 14:38:00 EDT, 1 tab, PO, Daily Start Date: 02/17/23 Status: Ordered QUEtiapine 200 mg oral tablet Start: 02/09/23 7:23:00 EDT, 1 tab, PO, Daily, Disp# 30 tab, Refills: 3, Pharmacy: [facility]/pharmacy #[id number] Start Date: 02/09/23 Stop Date: 06/09/23 Status: Ordered Suboxone 8 mg-2 mg sublingual film Start: 02/09/23 7:53:00 EDT, 1 patch, SL, bid, Disp# 60 patch, Refills: 0, dissolve under the tongue, Note to Pharmacy: may substitute tablet or film, Pharmacy: [facility]/pharmacy #[id number] Start Date: 02/09/23 Stop Date: 03/11/23 Status: Ordered TEGretol 200 mg oral tablet Start: 11/21/14 14:23:00, See Instructions, Disp# 5 tab, Refills: 0, Take 1 tab p.o. qAM and 2 tabsp.o. qPM, Pharmacy: [facility], Take 1 tab p.o. qAM [...] Confirmed Active Shortness of breath Confirmed Active SOB (shortness of breath) Confirmed Active History of ovarian cancer Confirmed Active Insomnia Confirmed Active Plasma cell myeloma Confirmed Active Chemotherapy-induce d nausea Confirmed Active Opioid use disorder in remission Confirmed Active Hospital discharge follow-up Confirmed Active Chronic prescription opiate use Confirmed Active Seasonal allergies Confirmed Active Tobacco user Confirmed Active Weight disorder Confirmed Active Procedures Procedure Date Related Diagnosis Body Site Status Bone marrow biopsy 2013 [facility] Social History Social History Type Response Smoking Status Current every day li t smoker Sex Female Patient Care team information Care Team Personnel Name: ELENA Barboza Kimberly A Position: Physician Netbackup Administrator - Family Med Member Role: Primary Care Provider Address: Address: [address] [place] [phone] Name: MARGARET Dunn Jo Ann M Position: Nurse Pract - Hem/Onc Member Role: Lifetime Relationship Address: Address: [address] [place] [address] YELENA Cole [id number] [place] Care Team Related Persons Name: MO SAMUEL Address: home [place]
--- OUTSIDE RECORDS SUMMARY | 2023-03-07 10:49 | External Medical Summary | Continuity of Care Document ---
Author Name Unknown Organization [facility] [place] [address] [address] [place] [phone] Care Team Providers Care Blood Coordinator Name Role Phone Radha Barboza Primary Care Physician [phone] Encounter [facility] [id number] Date(s): 01/26/23 - 01/26/23 [facility] [place] [address] [facility] 207 [facility] 1850 [facility] [address] [place] [address] [phone] Encounter Diagnosis Body mass index [BMI] 36.0-36.9, adult(Discharge Diagnosis) - 01/26/23 Hospital discharge follow-up(Discharge Diagnosis) - 01/27/23 Anxiety(Discharge Diagnosis) - 01/27/23 Discharge Disposition: Home or Self Care Attending Physician: ELENA Barboza Kimberly A Allergies, Adverse Reactions, Alerts Substance Reaction Severity Status codeine Active iodine topical Active Phenergan Itchy Rash Moderate Active shellfish Active Benedryl Allergy Sinus Activ e Assessment and Plan Extracted from: Title:Hospital followup/Anxiety Author:Mynor Barboza Kimberly A Date:01/27/23 1.Hospital discharge follo w-up STATUS:Chronic, with acute exacerbation of several comorbid conditions She was seen in office on 01/16/23 and was found to be hypoxic with 02 sats under 90. She at the same time had some difficulty breathing and increased lower extremity edema. Given her history of chronic CHF and COPD she was sent to ED for more acute evaluation. She initially was evaluated and determined to be stable so was sent home. Symptoms continued and she presented back to the ED on 01/17/23 when she was subsequently admitted. She was treated with aggressive diuresis and felt to have comorbid COPD exacerbation and acute on chronic CHF. She was discharged on 01/19/23 in improved condition but has since started to notice recurrence of lower extremity edema. She is currently on Bumex 3 mg twice daily. Is diligent in avoiding processed foods in addition to maintaining a low sodium diet. DATA:Labs reviewed. GOAL:Maintain stability. PLAN:Cont current monitoring. .Increase Bumex to 4mg twice daily Continue with low sodium diet, hydration, elevation of legs and compression stockings Call with any new or worsening symptoms 2.Anxiety STATUS:Chronic unstable. Anxiety has also continued to increase as well. Home life is becoming more chaotic with her sister. Her has recently broke the PFA she has against him. DATA:Labs reviewed. GOAL:Maintain stability. PLAN:Cont current monitoring. .Continue current medications as discussed. Patient has again been cautioned on continued benzo use with her Suboxone Will not change treatments at this time as patient will follow with established psychiatrist when she returns toher home. Time spent on pre-visit plannin min Face to face time spent w/ patient:24 min Time spent documenting pertinent clinical information into the EMR:6 min Total time: 36 min Medications ALPRAZolam 0.5 mg oral tablet, disintegrating Start: 01/26/23 16:49:00 EDT, 1 tab, PO, bid, Disp# 60 tab, Refills: 2, Note to Pharmacy: Please disregard prescription for Alprazolam 0.25mg; Thank you, Pharmacy: [facility]/pharmacy #[id number] Start Date: 01/26/23 Status: Ordered Apidra SoloStar Pen Start: 09/25/14 10:17:00 Start Date: 09/25/14 Status: Ordered Bumex 2 mg oral tablet Start: 01/26/23 16:58:00 EDT, See Instructions, Disp# 60 tab, 2 in AM, 2 at lunchtime, Pharmacy: [facility]/pharmacy #[id number] Start Date: 01/26/23 Status: Ordered busPIRone [...] 1, PRN: as needed for nausea/vomiting, [id number] Start Date: 07/22/22 Status: Ordered Potassium Chloride (Eqv-K-Tab) 20 mEq oral tablet, extended release Start: 07/22/22 12:17:00 EDT, 1 tab, PO, bid, Disp# 60 tab, Pharmacy: [facility] #[id number] Start Date: 07/22/22 Status: Ordered potassium chloride 20 mEq oral tablet, extended release Start: 11/21/14 13:00:00, 20 mEq =, PO, bid, Disp# 60 tab, Refills: 2, Pharmacy: [facility], 20 mEq PO bid Start Date: 11/21/14 Status: Ordered QUEtiapine 300 mg oral tablet, extended release Start: 01/26/23 16:52:00 EDT, 1 tab, PO, Daily, Disp# 90 tab, Refills: 1, Note to Pharmacy: Replacing the immediate release Seroquel, Pharmacy: [facility]/pharmacy #[id number] Start Date: 01/26/23 Stop Date: 07/25/23 Status: Ordered Suboxone 8 mg-2 mg sublingual film Start: 01/27/23 9:35:00 EDT, 1 patch, SL, bid, Disp# 28 film, Refills: 0, dissolve under the tongue, Note to Pharmacy: may substitute tablet or film, Pharmacy: [facility]/pharmacy #[id number] Start Date: 01/27/23 Stop Date: 02/10/23 Status: Ordered TEGretol 200 mg oral tablet Start: 11/21/14 14:23:00, See Instructions, Disp# 5 tab, Refills: 0, Take 1 tab p.o. qAM and 2 tabsp.o. qPM, Pharmacy: [facility], Take 1 tab p.o. qAM and 2 tabs p.o. qPM Start Date: 11/21/14 Status: Ordered Trelegy Ellipta 200 mcg-62.5 mcg-25 mcg/inh inhalation powder Start: 07/08/22 11:13:00 EDT Start Date: 07/08/22 Status: Ordered Mental Status 01/26/23 Barriers to Learning one year None evide nt Mandatory Health Literacy Documentation Yes Health Literacy Communication Barriers N ever Primary Language Iranian Problem List Condition Confirmation Course Effective Dates Status Health St atus Informant Anxiety Confirmed Active Bipolar disease, chronic Confirmed Active Cataract Confirmed Active Chalazion of right upper eyelid Confirmed Active Chronic eczema Confirmed Active Congestive heart failure Confirmed Active Diabetes Confirmed Active Shortness of breath Confirmed Active History of ovarian cancer Confirmed Active Plasma cell myeloma Confirmed Active Chemotherapy-induce d nausea Confirmed Active Hospital discharge follow-up Confirmed Active Chronic prescription opiate use Confirmed Active Seasonal allergies Confirmed Active Tobacco user Confirmed Active Weight disorder Confirmed Active Diagnosis Diagnosis Type Effective Dates Health Status Cl inical Service Informant Body mass index [BMI] 36.0-36.9, adult Discharge Diagnosis 01/26/23 Non-Specified Hospital discharge follow-up Discharge Diagnosis 01/27/23 Anxiety Discharge Diagnosis 01/27/23 Procedures Procedure Date Related Diagnosis Body Site Status Bone marrow biopsy 2013 Comple ganesh Vital Signs Most recent to oldest [Reference Range]: 1 Height 157.8 cm (01/26/23 4:14 PM) Patient Weight 91.4 kg (01/26/23 4:14 PM) Body Mass Index 36.71 kg/m2 (01/26/23 4:14 PM) Temperature [36.5-37.9 DegC] 36.8 DegC (01/26/23 4:14 PM) Respiratory Rate 20 br/min (01/26/23 4:14 PM) Blood Pressure 130/84mmHg (01/26/23 4:14 PM) Cuff Pulse Pressure 46 mmHg (01/26/23 4:14 PM) BP Location # 1 Right Arm (01/26/23 4:14 PM) Social History Social History Type Response Smoking Status Current every day li ght smoker Sex Female FCM Outpt Note * ELENA BarbozaRadha: PERFORM Event Display: FCM Outpt Note Authored Date: [id number] Chief Complaint Pt here for hospital admission f/u. Pt admitted for CHF and COPD. Pt continuing to have bilateral ankle swelling. History of Present Illness Patient presents today for hospital followup. She was seen in office on 01/16/23 and was found to be hypoxic with 02 sats under 90. She at the same time had some difficulty breathing and increased lower extremity edema. Given her history of chronic CHF and COPD she was sent to ED for more acute evaluation. She initially was evaluated and determined to be stable so was sent home. Symptoms continued and she presented back to the ED on 01/17/23 when she was subsequently admitted. She was treated with aggressive diuresis and felt to havecomorbid COPD exacerbation and acute on chronic CHF. She was discharged on 01/19/23 in improved condition but has since started to notice recurrence of lower extremity edema. She is currently on Bumex 3 mg twice daily. Is diligent in avoiding processed foods in addition to maintaining a low sodium diet. Anxiety has also continued to increase as well. Home life is becoming more chaotic with her sister. Her has recently broke the PFA she has against him. Review of Systems ROS per HPI Physical Exam Vitals & Measurements T:36.8C RR:20 BP:130/84 SpO2:94% HT:157.8cm WT:91.4kg WT:91.400kg(Dosing) BMI:36.71 PHQ2 Data(Data Documented on:01/26/2023 16:11) Emotional health assessment NEGATIVE General:Alert and oriented, No acute distress. HEENT:Eyes WNL, Tympanic membranes are clear, No pharyngeal erythema, No sinus tenderness.Edentulous Neck:Supple, Non-tender, No jugular venous distention, No lymphadenopathy, No thyromegaly. Respiratory:Lungs are clear to auscultation, Respirations are non-labored, Breath sounds are equal. Cardiovascular:Normal rate, Regular rhythm, No murmur, rubs or gallops. Neurologic:Alert, Oriented, No focal deficits. Psychiatric:Cooperative, Appropriate mood & affect.Significant anxiety and tearfulness during visit but appropriate given discussion Assessment/Plan 1.Hospital discharge follow-up STATUS:Chronic, with acute exacerbation of several comorbid conditions She was seen in office on 01/16/23 and was found to be hypoxic with 02 sats under 90. She at the same time had some difficulty breathing and increased lower extremity edema. Given her history of chronic CHF and COPD she was sent to ED for more acute evaluation. She initially was evaluated and determined to be stable so was sent home. Symptoms continued and she presented back to the ED on 01/17/23 when she was subsequently admitted. She was treated with aggressive diuresis and felt to havecomorbid COPD exacerbation and acute on chronic CHF. She was discharged on 01/19/23 in improved condition but has since started to notice recurrence of lower extremity edema. She is currently on Bumex 3 mg twice daily. Is diligent in avoiding processed foods in addition to maintaining a low sodium diet. DATA:Labs reviewed. GOAL:Maintain stability. PLAN:Cont current monitoring. .Increase Bumex to 4mg twice daily Continue with low sodium diet, hydration, elevation of legs and compression stockings Call with any new or worsening symptoms 2.Anxiety STATUS:Chronic unstable. Anxiety has also continued to increase as well. Home life is becoming more chaotic with her sister. Her has recently broke the PFA she has against him. DATA:Labs reviewed. GOAL:Maintain stability. PLAN:Cont current monitoring. .Continue current medications as discussed. Patient has again been cautioned on continued benzo use with her Suboxone Will not change treatments at this time as patient will follow with established psychiatrist when she returns toher home. Time spent on pre-visit plannin min Face to face time spent w/ patient:24 min Time spent documenting pertinent clinical information into the EMR:6 min Total time: 36 min Problem List/Past Medical History Ongoing Anxiety Bipolar disease, chronic Cataract Chalazion of right upper eyelid Chemotherapy-induced nausea Chronic eczema Chronic prescription opiate use Congestive heart failure Diabetes History of ovarian cancer Hospital discharge follow-up Plasma cell myeloma Seasonal allergies Shortness of breath Tobacco user Weight disorder Procedure/Surgical History Bone marrow biopsy (2013) Medications ALPRAZolam(ALPRAZolam 0.5 mg oral tablet, disintegrating), 0.5 mg= 1 tab, PO, bid, 2 refills bumetanide(Bumex 2 mg oral tablet), See Instructions buprenorphine-naloxone(Suboxone 8 mg-2 mg sublingual film) busPIRone(busPIRone 7.5 mg oral tablet), 7.5 mg= 1 tab, PO, tid carBAMazepine(TEGretol 200 mg oral tablet), See Instructions fluticasone/umeclidinium/vilanterol(Trelegy Ellipta 200 mcg-62.5 mcg-25 mcg/inh inhalation powder) insulin glargine(Lantus Solostar Pen), 55 unit, subQ, Daily insulin glulisine(Apidra SoloStar Pen) levalbuterol(levalbuterol CFC free 45 mcg/inh inhalation aerosol), 1 puff, inhaled, q4h, PRN ondansetron(ondansetron 4 mg oral tablet, disintegrating), 4 mg= 1 tab, PO, q8h, PRN, 1 refills potassium chloride(Potassium Chloride (Eqv-K-Tab) 20 mEq oral tablet, extended release), 20 mEq= 1 tab, PO, bid potassium chloride(potassium chloride 20 mEq oral tablet, extended release), 20 mEq, PO, bid, 2 refills prochlorperazine(Compazine 10 mg oral tablet), 10 mg= 1 tab, PO, q4h, PRN, 2 refills QUEtiapine(QUEtiapine 300 mg oral tablet, extended release), 300 mg= 1 tab, PO, Daily, 1 refills Allergies Phenergan (Moderate)Itchy, Rash Benedryl Allergy Sinus codeine iodine topical shellfish Social History Smoking Status Current every day light smoker Recommendations Health Maintenance Pending(in the next year) OverDue Diabetic Eye Exam due11/04/15and every 1year Adult Influenza Vaccine due10/25/22and every 1year Due Adult COVID-19 Vaccination due01/27/23Unknown Frequency Adult Tdap/Td Vaccine due01/27/23Unknown Frequency Breast Cancer Screening due01/27/23nown Frequency Cervical Cancer Screening due01/27/23nown Frequency Colorectal Cancer Screening due01/27/23nown Frequency Diabetes Management A1c due01/27/23nown Frequency Diabetes Nephropathy Management due01/27/23nown Frequency Lipid Screening due01/27/23nown Frequency Pneumococcal Vaccine Adults and Adolescents with Chronic Illness due01/27/23One-time only Shingles Vaccine due01/27/23One-time only Due In Future Body Mass Index not due until01/26/24and every 1year Satisfied(in the past 1 year) Satisfied Body Mass Index on01/26/23.Satisfied by GEETA Pearce Paula Electronic Signature on File Electronically Reviewed/Signed by: Radha Barboza PA-C Author Signature Dt/Tm:01/27/2023 07:58 AM Department of Family Medicine Electronically Reviewed/Signed by: Jovany Paredes MD Cosigner Signature Dt/Tm: 01/27/2023 04:27 PM Department of Family Medicine [facility] Patient Care team information Care Team Personnel Name: ELENA Barboza, Radha Bhatia Position: Physician Oral Surgery Physician - Family Med Member Role: Primary Care Provider Address: Address: [address] [place] [id number] Name: MARGARET Dunn Jo Ann M Position: Nurse Pract - Hem/Onc Member Role: Lifetime Relationship Address: Address: [address] [place] [id number] Care Team Related Persons Name: MO SAMUEL Address: [facility]
--- OUTSIDE RECORDS SUMMARY | 2023-03-07 10:49 | External Medical Summary | Continuity of Care Document ---
Author Name Unknown Organization [facility] [address] [address] [place] [phone] Care Team Providers Care Rn Licensed Practical Name Role Phone Radha Barboza Primary Care Physician [phone] [id number] Date[facility] 02/17/23 - 02/17/23 [facility] [address] [facility] 1850 [facility] [address] [place] [address] [phone] Discharge Disposition: Home or Self Care Attending [...] KAA, PRN: as needed for anxiety, Pharmacy: [facility]/pharmacy #[id number] Start Date: 02/17/23 Status: Ordered azithromycin 250 mg oral tablet Start: 02/17/23 14:39:00 EDT, 1 tab, PO, Daily Start Date: 02/17/23 Status: Ordered Bumex 2 mg oral tablet Start: 01/26/23 16:58:00 EDT, See Instructions, Disp# 60 tab, 2 in AM, 2 at lunchtime, Pharmacy: [facility]/pharmacy #[id number] Start Date: 01/26/23 Status: Ordered busPIRone 7.5 mg oral tablet Start: 07/08/22 11:12:00 EDT, 1 tab, PO, tid Start Date: 07/08/22 Status: Ordered Compazine 10 mg oral tablet Start: 11/21/14 13:00:00, 1 tab, PO, q4h, Disp# 60 tab, Refills: 2, PRN: Nausea, Pharmacy: [facility], 1 tab PO q4h,PRN:Nausea Start Date: [...] ac, Disp# 15 mL, Refills: 5, Pharmacy: [facility]/pharmacy #[id number] Start Date: 02/17/23 Status: Ordered ondansetron 4 mg oral tablet, disintegrating Start: 07/22/22 12:15:00 EDT, 1 tab, PO, q8h, Disp# 30 tab, Refills: 1, PRN: as needed for nausea/vomiting, Pharmacy: [facility]/pharmacy #[id number] Start Date: 07/22/22 Status: Ordered Potassium Chloride (Eqv-K-Tab) 20 mEq oral tablet, extended release Start: 02/10/23 14:25:00 EDT, 1 tab, PO, bid, Disp# 60 tab, Refills: 0, Pharmacy: [id number] Start Date: 02/10/23 Status: Ordered predniSONE 10 mg oral tablet Start: 02/17/23 14:38:00 EDT, 1 tab, PO, Daily Start Date: 02/17/23 Status: Ordered QUEtiapine 200 mg oral tablet Start: 02/09/23 7:23:00 EDT, 1 tab, PO, Daily, Disp# 30 tab, Refills: 3, Pharmacy: [facility]/pharmacy #[id number] Start Date: 02/09/23 Stop Date: 06/09/23 Status: Ordered Suboxone 8 mg-2 mg sublingual film Start: 02/09/23 7:53:00 EDT, 1 patch, SL, bid, Disp# 60 patch, Refills: 0, dissolve under the tongue, Note to Pharmacy: may substitute tablet or film, Pharmacy: [facility]/pharmacy #[id number] Start Date: 02/09/23 Stop Date: 03/11/23 Status: Ordered TEGretol 200 mg oral tablet Start: 11/21/14 14:23:00, See Instructions, Disp# 5 tab, Refills: 0, Take 1 tab p.o. qAM and 2 tabsp.o. qPM, Pharmacy: [facility], Take 1 tab p.o. qAM and 2 tabs p.o. qPM Start Date: 11/21/14 Status: Ordered Trelegy Ellipta 200 mcg-62.5 mcg-25 mcg/inh inhalation powder Start: 07/08/22 11:13:00 EDT Start Date: 07/08/22 Status: Ordered Mental Status 02/17/23 Barriers to Learning one year None evide nt Mandatory Health Literacy Documentation Yes Health Literacy Communication Barriers N ever Primary Language Greek Problem List Condition Confirmation Course Effective Dates [...] Most recent to oldest [Reference Range]: 1 Patient Weight 91.0 kg (02/17/23 2:31 PM) Heart Rate 96 bpm (02/17/23 2:31 PM) Respiratory Rate 18 br/min (02/17/23 2:31 PM) Blood Pressure 140/80mmHg (02/17/23 2:31 PM) BP Location # 1 Left Arm (02/17/23 2:31 PM) Social History Social History Type Response Smoking Status Current every day li ght smoker Sex Female Patient Care team information Care Team Personnel Name: ELENA Barboza, Radha Bhatia Position: Physician Cuff Cutter - Family Med Member Role: Primary Care Provider Address: Address: [address] [address] Name: MARGARET Dunn Jo Ann M Position: Nurse Pract - Hem/Onc Member Role: Lifetime Relationship Address: Address: [address] [place] [id number] Care Team Related Persons Name: MO SAMUEL Address: home [place]
--- OUTSIDE RECORDS SUMMARY | 2023-03-07 10:49 | External Medical Summary | Continuity of Care Document ---
Author Name Unknown Organization [place] [id number] [place] [id number] Care Team Providers Care Clinical Application Consultant Name Role Phone Radha Barboza Primary Care Physician [phone] Encounter [facility] [id number] Date(s): 02/27/23 - 02/27/23 [facility] 0 [facility] [address] [place] [address] [phone] Encounter Diagnosis Body mass index [BMI] 39.0-39.9, adult(Discharge Diagnosis) - 02/27/23 Plasma cell myeloma(Discharge Diagnosis) - 02/27/23 Diabetes(Discharge Diagnosis) - 02/27/23 Lower extremity edema(Discharge Diagnosis) - 02/27/23 Discharge Disposition: Home or Self Care Attending Physician: ELENA Barboza Kimberly A Allergies, Adverse Reactions, Alerts Substance Reaction Severity Status codeine Active iodine topical Active Phenergan Itchy Rash Moderate Active shellfish Active Benedryl Allergy Sinus Activ e Assessment and Plan Extracted from: Title:Myeloma, SOB, DM Author:ELENA Barboza Kimb erly A Date:02/27/23 1.Plasma cell myeloma STATUS:Chronic unstable She does have a history of multiple myelomaand has been in thestable remissionfor a number of years. Unfortunately she has now developedflulike symptoms with myalgias. Symptoms seem to be getting worse over the past months. She is complaining ofrather severe pain inthe right shoulder,low back and right hip. This is typically how she feelswhenjust priorto finding new lesions. There has been no change in her activityor injuriesto cause the pain. DATA:Labs reviewed. GOAL:Maintain stability. PLAN:Cont current monitoring. .Please schedule 2.Diabetes STATUS:Chronic unstable. She recently did have a diabetic eye exam which showedchanges consistent with diabetic retinopathy. She was also determined to have cataractsbut they arenot yet mature enoughfor extraction. Her BS have been running high due to multiple courses of prednisone due to COPD exacerbation. Treatment consists of DATA:Labs reviewed. GOAL:Maintain stability. PLAN:Cont current monitoring. . 3.Lower extremity edema STATUS:Chronic, worsening despite treatment She is currently to be on Bumex 4 mg twice dailybut has not been taking the evening dosedue to excessive nocturia. She does note that she is more short of breathrecently. Review of the vitals does showan 8 kg weight gain DATA:Labs reviewed. GOAL:Maintain stability. PLAN:Cont current monitoring. Resume Bumex 2mg, 2 tablets twice daily Will recheck in 1-2 weeks If still symptomatic, will add Zaroxolyn at next visit Tighten up fluid restrictions to 1500ml daily including coffee/creamer, foods, etc Time spent on pre-visit plannin min Face to face time spent w/ patient:27 min Time spent documenting pertinent clinical information into the EMR:6 min Total time: 39 min Medications ALPRAZolam 0.5 mg oral tablet Start: 02/17/23 15:02:00 EDT, 1 tab, PO, bid, Disp# 60 tab, Refills: 5, Note to Pharmacy: Please void previous prescriptions of Alprazolam. YIN, PRN: as needed for anxiety, Pharmacy: [facility]/pharmacy #[id number] Start Date: 02/17/23 Status: Ordered azithromycin 250 mg oral tablet Start: 02/17/23 14:39:00 EDT, 1 tab, PO, Daily Start Date: 02/17/23 Status: Ordered bumetanide 2 mg oral tablet Start: 02/27/23 13:59:00 EDT, See Instructions, Disp# 60 tab, Refills: 5, TAKE 2 TABLETS BY MOUTH IN THE MORNING AND 2 TABLET AT LUNCHTIME, Pharmacy: [facility]/pharmacy #[id number] Start Date: 02/27/23 Status: Ordered busPIRone 7.5 mg oral tablet Start: 07/08/22 11:12:00 EDT, 1 tab, PO, tid Start Date: 07/08/22 Status: Ordered Compazine 10 mg oral tablet Start: 11/21/14 13:00:00, 1 tab, PO, q4h, Disp# 60 tab, Refills: 2, PRN: Nausea, Pharmacy: [facility], 1 tab PO q4h,PRN:Nausea Start [...] ac, Disp# 15 mL, Refills: 5, Pharmacy: [facility]/pharmacy #[id number] Start Date: 02/17/23 Status: Ordered ondansetron 4 mg oral tablet, disintegrating Start: 07/22/22 12:15:00 EDT, 1 tab, PO, q8h, Disp# 30 tab, Refills: 1, PRN: as needed for nausea/vomiting, Pharmacy: [facility]/pharmacy #[id number] Start Date: 07/22/22 Status: Ordered Potassium Chloride (Eqv-K-Tab) 20 mEq oral tablet, extended release Start: 02/10/23 14:25:00 EDT, 1 tab, PO, bid, Disp# 60 tab, Refills: 0, Pharmacy: [facility] STORE [id number] Start Date: 02/10/23 Status: Ordered QUEtiapine 200 mg oral tablet Start: 02/09/23 7:23:00 EDT, 1 tab, PO, Daily, Disp# 30 tab, Refills: 3, Pharmacy: [facility]/pharmacy #[id number] Start Date: 02/09/23 Stop Date: 2/13/24 Status: Ordered Suboxone 8 mg-2 mg sublingual film Start: 02/09/23 7:53:00 EDT, 1 patch, SL, bid, Disp# 60 patch, Refills: 0, dissolve under the tongue, Note to Pharmacy: may substitute tablet or film, Pharmacy: [facility]/pharmacy #[id number] Start Date: 02/09/23 Stop Date: 03/11/23 Status: Ordered Trelegy Ellipta 200 mcg-62.5 mcg-25 mcg/inh inhalation powder Start: 07/08/22 11:13:00 EDT Start Date: 07/08/22 Status: Ordered Mental Status 02/27/23 Barriers to Learning one year None evide nt Mandatory Health Literacy Documentation Yes Health Literacy Communication Barriers N ever Primary Language Sinhala Problem List Condition Confirmation Course Effective Dates Status Health St atus Informant Anxiety Confirmed Active Cataract Confirmed Active Chalazion of right upper eyelid Confirmed Active Chronic eczema Confirmed Active Congestive heart failure Confirmed Active Diabetes Confirmed Active Shortness of breath Confirmed Active SOB (shortness of breath) Confirmed Active Lower extremity edema Confirmed Active History of pulmonary embolus (PE) Confirmed Active History of ovarian cancer Confirmed Active Insomnia Confirmed Active Plasma cell myeloma Confirmed Active Chemotherapy-induce d nausea Confirmed Active Opioid use disorder in remission Confirmed Active Hospital discharge follow-up Confirmed Active Chronic prescription opiate use Confirmed Active Seasonal allergies Confirmed Active Tobacco user Confirmed Active Weight disorder Confirmed Active Diagnosis Diagnosis Type Effective Dates Health Status Cl inical Service Informant Plasma cell myeloma Discharge Diagnosis 02/27/23 Body mass index [BMI] 39.0-39.9, adult Discharge Diagnosis 02/27/23 Non-Specified Diabetes Discharge Diagnosis 02/27/23 Lower extremity edema Discharge Diagnosis 02/27/23 Procedures Procedure Date Related Diagnosis Body Site Status Bone marrow biopsy 2013 [facility] Vital Signs Most recent to oldest [Reference Range]: 1 Height 157.8 cm (02/27/23 1:01 PM) Patient Weight 99.3 kg (02/27/23 1:01 PM) Body Mass Index 39.88 kg/m2 (02/27/23 1:01 PM) Temperature [36.5-37.9 DegC] 36.9 DegC (02/27/23 1:01 PM) Heart Rate 95 bpm (02/27/23 1:01 PM) Respiratory Rate 17 br/min (02/27/23 1:01 PM) Blood Pressure 138/76mmHg (02/27/23 1:01 PM) Cuff Pulse Pressure 62 mmHg (02/27/23 1:01 PM) BP Location # 1 Right Arm (02/27/23 1:01 PM) Social History Social History Type Response Smoking Status Current every day vivien [facility]rena smoker Sex Female [facility] Outpt Note * ELENA Barboza Kimberly A: PERFORM, MODIFY Event Display: [facility] Outpt Note Authored Date: Chief Complaint 1 mpn f/u - states body hurts all the time, fatigued, SOB with doing anything states she feels winded. History of Present Illness Patient is a 62 yo female with a very complicated, extensive medical history presenting with multiple issues. Multiple myeloma She does have a history of multiple myelomaand has been in thestable remissionfor a number of years. Unfortunately she has now developedflulike symptoms with myalgias. Symptoms seem to be getting worse over the past months. She is complaining ofrather severe pain inthe right shoulder,low back and right hip. She has noted increasing weakness of her lower extremities as well. This is typically how she feelswhenjust priorto finding new lesions. There has been no change in her activityor injuriesto cause the pain. Has not been able to see oncologist due to insurance changes. Has had several recurrences in the past but not currently on treatment. DM2 with complications She recently did have a diabetic eye exam which showedchanges consistent with diabetic retinopathy. She was also determined to have cataractsbut they arenot yet mature enoughfor extraction. Her BS have been running high due to multiple courses of prednisone due to COPD exacerbation. Shedoes have basal insulin and short acting insulin already prescribed. LLE: She does have a historyof chronicbilateral lower extremity edema. She is currently to be on Bumex 4 mg twice dailybut has not been taking the evening dosedue to excessive nocturia. She does note that she is more short of breathrecently. Review of the vitals does showan 8 kg weightgain since her last visit. She is also to bemanaging with2 Ldaily fluid restriction. Unfortunately it does not seem that sheis cognizant of everything this includes. By her own account,she is [id number] just between her ice tea and her coffee. Review of Systems ROS per HPI Physical Exam Vitals & Measurements T:36.9C HR:95(Monitored) RR:17 BP:138/76 SpO2:94% HT:157.8cm WT:99.3kg WT:99.300kg(Dosing) BMI:39.88 PHQ2 Data(Data Documented on:02/27/2023 13:00) Emotional health assessment NEGATIVE General: Alert and oriented,No acute distress,Very pleasant Well groomed Eye: Pupils are equal, round and reactive to light,Extraocular movements are intact,Normal conjunctiva. HENT: Normocephalic, Neck: Supple,No lymphadenopathy. Respiratory: Lungs are clear to auscultation,Respirations are non- labored,Breath sounds are equal,Symmetrical chest wall expansion. Cardiovascular: Normal rate,Regular rhythm,No murmur,No gallop,No edema. Lymphatics: No submandibular, anterior or posterior cervical adenopathy palpable. Musculoskeletal:2+ pitting edema of LE. No visibleMSKjoint deformities Normal gait. Integumentary: Warm,[place]. No rashes or changing lesions. Neurologic: Alert,Oriented,Cranial Nerves II-XII are grossly intact. Cognition and Speech: Oriented,Speech clear and coherent,Functional cognition intact. Psychiatric: Cooperative,Appropriate mood & affect,Normal judgment. Assessment/Plan 1.Plasma cell myeloma STATUS:Chronic unstable She does have a history of multiple myelomaand has been in thestable remissionfor a number of years. Unfortunately she has now developedflulike symptoms with myalgias. Symptoms seem to be getting worse over the past months. She is complaining ofrather severe pain inthe right shoulder,low back and right hip. This is typically how she feelswhenjust priorto finding new lesions. There has been no change in her activityor injuriesto cause the pain. DATA:Labs reviewed. GOAL:Maintain stability. PLAN:Cont current monitoring. .Please schedule 2.Diabetes STATUS:Chronic unstable. She recently did have a diabetic eye exam which showedchanges consistent with diabetic retinopathy. She was also determined to have cataractsbut they arenot yet mature enoughfor extraction. Her BS have been running high due to multiple courses of prednisone due to COPD exacerbation. Treatment consists of DATA:Labs reviewed. GOAL:Maintain stability. PLAN:Cont current monitoring. . 3.Lower extremity edema STATUS:Chronic, worsening despite treatment She is currently to be on Bumex 4 mg twice dailybut has not been taking the evening dosedue to excessive nocturia. She does note that she is more short of breathrecently. Review of the vitals does showan 8 kg weight gain DATA:Labs reviewed. GOAL:Maintain stability. PLAN:Cont current monitoring. Resume Bumex 2mg, 2 tablets twice daily Will recheck in 1-2 weeks If still symptomatic, will add Zaroxolyn at next visit Tighten up fluid restrictions to 1500ml daily including coffee/creamer, foods, etc Time spent on pre-visit plannin min Face to face time spent w/ patient:27 min Time spent documenting pertinent clinical information into the EMR:6 min Total time: 39 min Problem List/Past Medical History Ongoing Anxiety Cataract Chalazion of right upper eyelid Chemotherapy-induced nausea Chronic eczema Chronic prescription opiate use Congestive heart failure Diabetes History of ovarian cancer History of pulmonary embolus (PE) Hospital discharge follow-up Insomnia Lower extremity edema Opioid use disorder in remission Plasma cell myeloma Seasonal allergies Shortness of breath SOB (shortness of breath) Tobacco user Weight disorder Historical Bipolar disease, chronic Procedure/Surgical History Bone marrow biopsy (2013) Medications ALPRAZolam(ALPRAZolam 0.5 mg oral tablet), 0.5 mg= 1 tab, PO, bid, PRN, 5 refills azithromycin(azithromycin 250 mg oral tablet), 250 mg= 1 tab, PO, Daily bumetanide(bumetanide 2 mg oral tablet), See Instructions, 5 refills buprenorphine-naloxone(Suboxone 8 mg-2 mg sublingual film), 1 patch, SL, bid busPIRone(busPIRone 7.5 mg oral tablet), 7.5 mg= 1 tab, PO, tid doxycycline(doxycycline hyclate 100 mg oral tablet), 100 mg= 1 tab, PO, bid enoxaparin(enoxaparin 150 mg/mL injectable solution), 150 mg, subQ, Daily fluticasone/umeclidinium/vilanterol(Trelegy Ellipta 200 mcg-62.5 mcg-25 mcg/inh inhalation powder) insulin aspart(NovoLOG FlexPen 100 units/mL injectable solution), 10 unit, subQ, ac, 5 refills insulin glargine(Lantus Solostar Pen), 55 unit, subQ, Daily levalbuterol(levalbuterol CFC free 45 mcg/inh inhalation aerosol), 1 puff, inhaled, q4h, PRN ondansetron(ondansetron 4 mg oral tablet, disintegrating), 4 mg= 1 tab, PO, q8h, PRN, 1 refills potassium chloride(Potassium Chloride (Eqv-K-Tab) 20 mEq oral tablet, extended release), 1 tab, PO,bid prochlorperazine(Compazine 10 mg oral tablet), 10 mg= 1 tab, PO, q4h, PRN, 2 refills QUEtiapine(QUEtiapine 200 mg oral tablet), 200 mg= 1 tab, PO, Daily, 3 refills Allergies Phenergan (Moderate)Itchy, Rash Benedryl Allergy Sinus codeine iodine topical shellfish Social History Smoking Status Current every day light smoker Recommendations Health Maintenance Pending(in the next year) OverDue Diabetic Eye Exam due11/05/15and every 366day Adult Influenza Vaccine due10/25/22and every 1year Due Adult COVID-19 Vaccination due02/27/23Unknown Frequency Adult Tdap/Td Vaccine due02/27/23Unknown Frequency Breast Cancer Screening due02/27/23Unknown Frequency Cervical Cancer Screening due02/27/23nown Frequency Colorectal Cancer Screening due02/27/23nown Frequency Diabetes Management A1c due02/27/23nown Frequency Diabetes Nephropathy Management due02/27/23nown Frequency Lipid Screening due02/27/23nown Frequency Pneumococcal Vaccine Adults and Adolescents with Chronic Illness due02/27/23One-time only Shingles Vaccine due02/27/23One-time only Due In Future Body Mass Index not due until02/27/24and every 1year Satisfied(in the past 1 year) Satisfied Body Mass Index on02/27/23.Satisfied by PAULINA Regalado Emma Electronic Signature on File Electronically Reviewed/Signed by: Radha Barboza PA-C Author Signature Dt/Tm:02/27/2023 02:10 PM Department of Family Medicine Electronically Reviewed/Signed by: Radha Barboza PA-C Cosigner Signature Dt/Tm: 02/27/2023 02:19 PM Department of Family Medicine Electronically Reviewed/Signed by: MD Analia Mccarthyer Signature Dt/Tm: 02/27/2023 06:01 PM Department of Family Medicine YIN Patient Care team information Care Team Personnel Name: ELENA Barboza, Radha Bhatia Position: Physician Painting Instructor - Family Med Member Role: Primary Care Provider Address: Address: [facility] [address] [address] Name: MARGARET Dunn Jo Ann M Position: Nurse Pract - Hem/Onc Member Role: Lifetime Relationship Address: Address: [address] [place] [id number] Care Team Related Persons Name: MO SAMUEL Address: [facility]
--- OUTSIDE RECORDS SUMMARY | 2023-03-07 10:49 | External Medical Summary | Continuity of Care Document ---
Author Name Unknown Organization [place] [address] [place] [phone] Care Team Providers Care Grade Recorder Name Role Phone JabariRadha Primary Care Physician [phone] Encounter [facility] [id number] Date(s): 02/04/23 - 02/04/23 [facility] 1849 [facility] 207 [facility] [address] [address] [phone] Encounter Diagnosis Opioid use disorder in remission(Discharge Diagnosis) - 02/04/23 Edema of both lower extremities(Discharge Diagnosis) - 02/04/23 Insomnia(Discharge Diagnosis) - 02/04/23 Diabetes mellitus, type 2(Discharge Diagnosis) - 02/04/23 Opioid use, unspecified, in remission(Final) - Discharge Disposition: Home or Self Care [...] for Alprazolam 0.25mg; Thank you, Pharmacy: [facility]/pharmacy #[id number] Start Date: 01/26/23 Status: Ordered Apidra SoloStar Pen Start: 09/25/14 10:17:00 Start Date: 09/25/14 Status: Ordered Bumex 2 mg oral tablet Start: 01/26/23 16:58:00 EDT, See Instructions, Disp# 60 tab, 2 in AM, 2 at lunchtime, Pharmacy: [facility]/pharmacy #[id number] Start Date: 01/26/23 Status: Ordered busPIRone 7.5 mg oral tablet Start: 07/08/22 11:12:00 EDT, 1 tab, PO, tid Start Date: 07/08/22 Status: Ordered Compazine 10 mg oral tablet Start: 11/21/14 13:00:00, 1 tab, PO, q4h, Disp# 60 tab, Refills: 2, PRN: Nausea, Pharmacy: [facility], 1 tab PO q4h,PRN:Nausea Start [...] 1, PRN: as needed for nausea/vomiting, Pharmacy: [facility]/pharmacy #[id number] Start Date: 07/22/22 Status: Ordered Potassium Chloride (Eqv-K-Tab) 20 mEq oral tablet, extended release Start: 07/22/22 12:17:00 EDT, 1 tab, PO, bid, Disp# 60 tab, Pharmacy: [facility]/pharmacy #[id number] Start Date: 07/22/22 Status: Ordered potassium chloride 20 mEq oral tablet, extended release Start: 11/21/14 13:00:00, 20 mEq =, PO, bid, Disp# 60 tab, Refills: 2, Pharmacy: [facility], 20 mEq PO bid Start Date: 11/21/14 Status: Ordered SEROquel XR 200 mg oral tablet, extended release Start: 02/04/23 23:41:00 EDT, 1 tab, PO, qPM, Disp# 90 tab, Refills: 3, Pharmacy: [facility]/pharmacy #[id number] Start Date: 02/04/23 Stop Date: 01/30/24 Status: Ordered Suboxone 8 mg-2 mg sublingual film Start: 01/27/23 9:35:00 EDT, 1 patch, SL, bid, Disp# 28 film, Refills: 0, dissolve under the tongue, Note to Pharmacy: may substitute tablet or film, Pharmacy: [facility]/pharmacy #[id number] Start Date: 01/27/23 Stop Date: 02/10/23 Status: Ordered TEGretol 200 mg oral tablet Start: 11/21/14 14:23:00, See Instructions, Disp# 5 tab, Refills: 0, Take 1 tab p.o. qAM and 2 tabsp.o. qPM, Pharmacy: [facility], Take 1 tab p.o. qAM and 2 tabs p.o. qPM Start Date: 11/21/14 Status: Ordered Trelegy Ellipta 200 mcg-62.5 mcg-25 mcg/inh inhalation powder Start: 07/08/22 11:13:00 EDT Start Date: 07/08/22 Status: Ordered Mental Status 02/04/23 Barriers to Learning one year None evide nt Mandatory Health Literacy Documentation Yes Health Literacy Communication Barriers N ever Primary Language Maldivian Problem List Condition Confirmation Course Effective Dates [...] Effective Dates Health Status Clinical Service Informant Edema of both lower extremities Discharge Diagnosis 02/04/23 Non-Specified Diabetes mellitus, type 2 Discharge Diagnosis 02/04/23 Non-Specified Insomnia Discharge Diagnosis 02/04/23 Opioid use disorder in remission Discharge Diagnosis 02/04/23 Procedures Procedure Date Related Diagnosis Body Site Status Bone marrow biopsy 2014 [facility] Results Laboratory List Name Date Miscellaneous Lab Order (MISCELLANEOUS O RDER) 02/04/23 Miscellaneous Lab Order (MISCELLANEOUS O RDER) 02/04/23 Most recent to oldest [Reference Range]: 1 2 Source, Other URINE (02/04/23 1:05 PM) URINE (02/04/23 1:00 PM) Test-Name [facility]DS [facility] CODE 53529,BUPRENOEPHINE (02/04/23 1:05 PM) UDS [facility] CODE 76176, 14 PANEL (02/04/23 1:00 PM) Result & Ref REORDERED BY LAB 1 (02/04/23 1:05 PM) REORDERED BY LAB 2 (02/04/23 1:00 PM) 1Result Comment: [facility] 75134 Drug Monitoring, Buprenorphine, with Confirmation, includes Naloxone, Urine 2Result Comment: [facility] 76072 Drug Monitoring, Panel 1, with Confirmation, Urine Vital Signs Most recent to oldest [Reference Range]: 1 Patient Weight 96 kg (02/04/23 10:36 AM) Temperature [36.5-37.9 DegC] 37 DegC (02/04/23 10:36 AM) Heart Rate 101 bpm (02/04/23 10:36 AM) Respiratory Rate 18 br/min (02/04/23 10:36 AM) Blood Pressure 122/68mmHg (02/04/23 10:36 AM) Social History Social History Type Response Smoking Status Current every [facility] smoker Sex Female Patient Care team information Care Team Personnel Name: ELENA Barboza, Radha Bhatia Position: Physician Epoxy Coatings Installer - Family Med Member Role: Primary Care Provider Address: Address: [address] [place] [address] [place] [id number] Name: MARGARET Dunn Jo Ann M Position: Nurse Pract - Hem/Onc Member Role: Lifetime Relationship Address: Address: [address] [place] [address] Care Team Related Persons Name: MO SAMUEL Address: [facility]
--- OUTSIDE RECORDS SUMMARY | 2023-03-07 10:49 | External Medical Summary | Continuity of Care Document ---
Author Name Unknown Organization [facility] [id number] [place] [id number] Care Team Providers Care Ruby On Rails Engineer Name Role Phone Radha Barboza Primary Care Physician [phone] [id number] Date(s): 02/10/23 - 02/10/23 [facility] 0 [facility] [address] [facility] Medical [facility] [address] [facility] [address] [place] [address] [phone] Discharge Disposition: Home or Self Care Attending [...] prescription for Alprazolam 0.25mg; Thank you, Pharmacy: [facility]/pharmacy #[id number] Start Date: 01/26/23 Status: Ordered Apidra SoloStar Pen Start: 09/25/14 10:17:00 Start Date: 09/25/14 Status: Ordered Bumex 2 mg oral tablet Start: 01/26/23 16:58:00 EDT, See Instructions, Disp# 60 tab, 2 in AM, 2 at lunchtime, Pharmacy: [facility]/pharmacy #[id number] Start Date: 01/26/23 Status: Ordered busPIRone 7.5 mg oral tablet Start: 07/08/22 11:12:00 EDT, 1 tab, PO, tid Start Date: 07/08/22 Status: Ordered Compazine 10 mg oral tablet Start: 11/21/14 13:00:00, 1 tab, PO, q4h, Disp# 60 tab, Refills: 2, PRN: Nausea, Pharmacy: [facility], 1 tab PO q4h,PRN:Nausea Start [...] PRN: as needed for nausea/vomiting, [id number] Start Date: 07/22/22 Status: Ordered Potassium Chloride (Eqv-K-Tab) 20 mEq oral tablet, extended release Start: 02/10/23 14:25:00 EDT, 1 tab, PO, bid, Disp# 60 tab, Refills: 0, Pharmacy: [facility] [id number] Start Date: 02/10/23 Status: Ordered QUEtiapine 200 mg oral tablet Start: 02/09/23 7:23:00 EDT, 1 tab, PO, Daily, Disp# 30 tab, Refills: 3, [id number] Start Date: 02/09/23 Stop Date: 06/09/23 Status: Ordered Suboxone 8 mg-2 mg sublingual film Start: 02/09/23 7:53:00 EDT, 1 patch, SL, bid, Disp# 60 patch, Refills: 0, dissolve under the tongue, Note to Pharmacy: may substitute tablet or film, Pharmacy: [facility]/pharmacy #[id number] Start Date: 02/09/23 Stop Date: 03/11/23 Status: Ordered TEGretol 200 mg oral tablet Start: 11/21/14 14:23:00, See Instructions, Disp# 5 tab, Refills: 0, Take 1 tab p.o. qAM and 2 tabsp.o. qPM, Pharmacy: [facility], Take 1 tab p.o. qAM [...] Body Site Status Bone marrow biopsy 2013 [facility] ganesh Social History Social History Type Response [facility] Sex Female Patient Care team information Care Team Personnel Name: ELENA Barboza, Radha Bhatia Position: Physician Hardboard Press Operator - Family Med Member Role: Primary Care Provider Address: Address: [address] [place] [id number] Name: MARGARET Dunn Jo Ann M Position: Nurse Pract - Hem/Onc Member Role: Lifetime Relationship Address: Address: [address] [place] [id number] Care Team Related Persons Name: MO SAMUEL Address: [facility]
== END 2023-03-06 17:19 | disposition home or self-care (01) | DRG 280 ==
LOC: ED 14:40 → 2S 20:39 → SUATTDRO 20:39 → 2S 21:16

== ENCOUNTER 2023-05-07 16:21 | Inpatient (IN) ==
--- NOTE | 2023-05-07 16:26 | ED Triage Note ---
Date of Service May 07, 2023 Provider in Triage Author: Blair Damon History of Present Illness This patient was briefly evaluated while in triage. An abbreviated physical exam was performed. This patient is a 63-year-old Female who presents to the ED for evaluation increasing SOB x 2 days was at doctor's office 2 days ago-was starting to retain fluid on Bumex BID but not making a lot of urine, still swelling and SOB using nebulizers without relief Physical Exam GENERAL: NAD CARDIOVASCULAR: RRR RESPIRATORY: Diminished throughout. ABDOMEN: BS x 4. Nontender to palpation. Initial orders for labs and / or imaging were placed and patient was placed in the waiting area until a bed is available. Please see further documentation for the full ED course.
--- NOTE | 2023-05-07 16:57 | XRay Report ---
TWO VIEW CHEST CLINICAL HISTORY: Dyspnea. FINDINGS: PA and lateral chest radiographs are compared to study dated 04/09/2023. Correlation is mad e with chest CT dated 06/21/2022. The heart is enlarged noting atherosclerotic calcification of the th oracic aorta. The pulmonary vasculature is noncongested. Chronic interstitial thickening is similar t o previous. There is bibasilar scarring/atelectasis. The lungs and pleural spaces are otherwise clear . There is no pneumothorax. The skeletal structures are osteopenic. There are chronic/healed right-si ded rib fractures. Surgical clips are partially visualized in the abdomen. IMPRESSION: Cardiomegaly with no active disease in the chest. ACT 112: Negative or not required by law. Electronically signed by: Cayetano Espinoza M.D. 05/07/2023 4:55 PM
[2023-05-07 17:54] LABS: Basophils # (auto) 0.07 K/uL (0.00-0.20); Basophils % (auto) 0.5 %; Eosinophils # (auto) 0.32 K/uL (0.00-0.50); Eosinophils % (auto) 2.2 %; Hematocrit (blood only) 48.6 % (37.0-47.0); Hemoglobin 15.9 g/dl (12.0-16.0); Immature Granulocytes # (auto) 0.06 K/uL (0.01-0.20); Immature Granulocytes % (auto) 0.4 %; Lymphocytes # (auto) 3.26 K/uL (1.20-3.40); Lymphocytes % (auto) 22.4 %; Mean Corpuscular Hemoglobin 26.5 pg (25.0-34.0); Mean Corpuscular Hgb Conc 32.7 g/dL (32.0-36.0); Mean Corpuscular Volume 81.1 fL (80.0-100.0); Monocytes # (auto) 0.66 K/uL (0.11-0.59); Monocytes % (auto) 4.5 %; Neutrophils # (auto) 10.21 K/uL (1.40-6.50); Platelet Count 349 K/uL (130-400); RDW Coefficient of Variation 14.8 % (11.5-14.5); RDW Standard Deviation 42.3 fL (36.4-46.3); Red Blood Count 5.99 M/uL (4.20-5.40); White Blood Count 14.58 K/ul (4.8-10.8)
[2023-05-07 18:09] LABS: Alanine Aminotransferase 15 U/L (7-52); Albumin Globulin Ratio 1.3 (0.9-2); Albumin Level 4.6 gm/dl (3.4-5.0); Alkaline Phosphatase 127 U/L (34-104); Anion Gap 7 (3-11); Aspartate Aminotransferase 12 U/L (13-39); BUN Creatinine Ratio 22.2 (10-20); Bilirubin,Total 0.4 mg/dl (0.2-1.0); Blood Urea Nitrogen 20 mg/dl (6-23); Calcium 9.4 mg/dl (8.6-10.3); Carbon Dioxide 37 mmol/L (21-32); Chloride 95 mmol/L (98-107); Est GFR (African American) 79.4 ml/min; Est GFR (Non-African American) 68.5 ml/min; Globulin 3.5 gm/dl (2.5-4.0); Glucose 251 mg/dl (70-99(Fasting)); Potassium 3.3 mmol/L (3.5-5.1); Sodium 139 mmol/L (136-145); Total Protein 8.1 gm/dl (6.0-8.3)
[2023-05-07 18:17] LABS: Troponin I High Sensitivity 10.5 pg/ml (0-14)
[2023-05-07 18:20] LABS: Partial Thromboplastin Time 27 Seconds (21-31); Prothrombin Time 11.1 Seconds (9.0-12.0)
[2023-05-07] MEDS ORDERED: LEVALBUTEROL 1.25 MG/3 ML NEB NEB STA (19:42)
[2023-05-07] MEDS ORDERED: POTASSIUM CHLORIDE CRTAB 20 MEQ TABCR PO STA (19:42)
[2023-05-07] MEDS ORDERED: BUMETANIDE 1 MG in SYRINGE 0 ML IV ONE (19:42)
[2023-05-07] MEDS ORDERED: ALPRAZolam 0.5 MG TABLET PO STA (19:43)
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
[2023-05-07 20:05] LABS: Magnesium 1.7 mg/dl (1.7-2.4)
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
[2023-05-07] MEDS: MAGNESIUM SULFATE / D5W 1 GM/100 ML BAG IV SCH ×2 (21:20→23:22)
[2023-05-07] MEDS ORDERED: BUMETANIDE 1 MG in SYRINGE 0 ML IV STA (21:23)
[2023-05-07] MEDS ORDERED: DEXTROSE 50% 50 ML SYRINGE IV PRN (23:34)
[2023-05-07] MEDS ORDERED: GLUCAGON FOR INJ 1 MG VIAL SQ PRN (23:34)
[2023-05-07] MEDS ORDERED: GLUCOSE 10 TAB/TUBE PO PRN (23:34)
[2023-05-07] MEDS ORDERED: ACETAMINOPHEN 325 MG TAB PO PRN (23:34)
[2023-05-07] MEDS ORDERED: LEVALBUTEROL TARTRATE 15 GM HFA.AER.AD INH PRN (23:34)
[2023-05-07] MEDS ORDERED: GLUCOSE 40% GEL 15 GM TUBE PO PRN (23:34)
[2023-05-07] MEDS ORDERED: CARBOHYDRATES FOR HYPOGLYCEMIA PO PRN (23:34)
[2023-05-07] MEDS ORDERED: ONDANSETRON INJ 2 MG/ML 2 ML VIAL IV PRN (23:34)
[2023-05-07 23:53] LABS: Adenovirus PCR Not Detected (NotDetected); Bordetella parapertussis PCR Not Detected (NotDetected); Bordetella pertussis PCR Not Detected (NotDetected); Chlamydia pneumoniae PCR Not Detected (NotDetected); Coronavirus 229E PCR Not Detected (NotDetected); Coronavirus CoV-2 (COVID19)PCR Not Detected (NotDetected); Coronavirus HKU1 PCR Not Detected (NotDetected); Coronavirus NL63 PCR Not Detected (NotDetected); Coronavirus OC43PCR Not Detected (NotDetected); Human Metapneumovirus PCR Not Detected (NotDetected); Influenza A PCR Not Detected (NotDetected); Influenza B PCR Not Detected (NotDetected); Mycoplasma pneumoniae PCR Not Detected (NotDetected); Parainfluenza Virus 1 PCR Not Detected (NotDetected); Parainfluenza Virus 2 PCR Not Detected (NotDetected); Parainfluenza Virus 3 PCR Not Detected (NotDetected); Parainfluenza Virus 4 PCR Not Detected (NotDetected); Respiratory Syncytial VirusPCR Not Detected (NotDetected); Rhinovirus/Enterovirus PCR Not Detected (NotDetected)
[2023-05-07] MEDS: IPRATROPIUM BROMIDE NEB SOLN 0.02% 2.5 ML VIAL INH SCH (23:59)
[2023-05-07] MEDS: LEVALBUTEROL 1.25 MG/3 ML NEB INH SCH (23:59)
[2023-05-08] MEDS: guaiFENesin 600 MG TABCR PO SCH ×4 (00:40→21:13)
[2023-05-08] MEDS: INSULIN ASPART PER UNIT CHARGE SC SCH ×5 (00:44→21:04)
[2023-05-08] MEDS: BUPRENORPHINE/NALOXONE 8/2 MG TAB SL SCH ×3 (00:44→21:01)
[2023-05-08] MEDS: POTASSIUM CHLORIDE CRTAB 20 MEQ TABCR PO SCH ×3 (00:45→21:01)
[2023-05-08] MEDS: QUEtiapine FUMARATE 200 MG TAB PO SCH ×2 (00:45→21:01)
[2023-05-08] MEDS: ALPRAZolam 0.5 MG TABLET PO SCH ×3 (01:33→18:13)
[2023-05-08 06:42] LABS: Basophils # (auto) 0.03 K/uL (0.00-0.20); Basophils % (auto) 0.2 %; Hemoglobin 15.3 g/dl (12.0-16.0); Immature Granulocytes # (auto) 0.05 K/uL (0.01-0.20); Immature Granulocytes % (auto) 0.4 %; Lymphocytes # (auto) 1.53 K/uL (1.20-3.40); Lymphocytes % (auto) 11.5 %; Mean Corpuscular Hemoglobin 26.6 pg (25.0-34.0); Mean Corpuscular Hgb Conc 33.3 g/dL (32.0-36.0); Mean Platelet Volume 10.3 fL (9.4-12.4); Monocytes # (auto) 0.18 K/uL (0.11-0.59); Monocytes % (auto) 1.4 %; Neutrophils # (auto) 11.49 K/uL (1.40-6.50); Neutrophils % (auto) 86.5 %; Platelet Count 328 K/uL (130-400); RDW Coefficient of Variation 14.4 % (11.5-14.5); RDW Standard Deviation 41.1 fL (36.4-46.3); Red Blood Count 5.75 M/uL (4.20-5.40); White Blood Count 13.28 K/ul (4.8-10.8)
[2023-05-08 07:08] LABS: Estimated Average Glucose 255 mg/dl; Hemoglobin A1C 10.5 % (4.5-5.6)
[2023-05-08] MEDS: IPRATROPIUM BROMIDE NEB SOLN 0.02% 2.5 ML VIAL INH SCH ×4 (07:15→19:16)
[2023-05-08] MEDS: LEVALBUTEROL 1.25 MG/3 ML NEB INH SCH ×3 (07:15→19:16)
[2023-05-08 07:36] LABS: Calcium 8.9 mg/dl (8.6-10.3); Magnesium 2.1 mg/dl (1.7-2.4); Potassium 3.8 mmol/L (3.5-5.1)
[2023-05-08 07:47] LABS: BUN Creatinine Ratio 26.3 (10-20); Creatinine Clr Calc Pharmacy 80.1 ml/min; Est GFR (African American) 97.4 ml/min; Est GFR (Non-African American) 84.1 ml/min; Phosphorus 3.5 mg/dl (2.5-4.9)
[2023-05-08] MEDS: UMECLIDINIUM/VILANTEROL 62.5/25MCG 7 PUFFS/INHALER INH SCH (08:33)
[2023-05-08] MEDS: FLUTICASONE FUROATE 200MCG 14 PUFFS/INHALER INH SCH (08:33)
[2023-05-08] MEDS ORDERED: BUMETANIDE 0.5 MG in SYRINGE 0 ML IV SCH (09:00)
[2023-05-08] MEDS ORDERED: ENOXAPARIN 80 MG/0.8 ML SYR SQ SCH (09:00)
[2023-05-08] MEDS ORDERED: NON-FORMULARY MEDICATION (Fluticasone-Umeclidin-Vilanter [Trelegy Ellipta] 200-62.5-25 mcg INH SCH (09:00)
[2023-05-08] MEDS ORDERED: LANTUS PER UNIT CHARGE SQ SCH (09:00)
[2023-05-08] MEDS: INSULIN HUMAN NPH SC SCH ×2 (09:32→21:07)
[2023-05-08] MEDS: BUDESONIDE 0.5 MG/2 ML VIAL (PULMICORT) NEB SCH ×2 (11:25→19:16)
--- NOTE | 2023-05-08 11:57 | Electrocardiogram Report ---
Test Reason : Blood Pressure : / mmHG Vent. 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
--- NOTE | 2023-05-08 12:43 | Hospitalist Progress Note ---
Date of Service May 08, 2023 Assessment & Plan (1) Acute on chronic respiratory failure with hypoxia: Plan: Supplemental oxygen to maintain saturation greater than 90%. Wean down oxygen to baseline levels as tolerated (2) Obesity hypoventilation syndrome: Plan: Supportive care. Significant weight loss recommended (3) COPD exacerbation: Plan: Parenteral steroid therapy administered in the ED with resultant hyperglycemia. Continue nebulizer treatments. (4) CHF exacerbation: Plan: Ruled out (5) Chronic anticoagulation: Plan: She is chronically on Lovenox subcu (6) Tobacco abuse: Plan: Smoking cessation recommended (7) History of pulmonary embolism: Plan: Continue Lovenox therapy (8) Multiple myeloma: Plan: Outpatient oncology follow-up (9) Diabetes: Plan: ADA diet. Lantus temporarily switched to NPH insulin. Sliding scale coverage. Plan Anticipate eventual discharge to home within the next day or 2. Admission and Anticipated Discharge Date Admission Date: May 07, 2023 Subjective Alert and oriented. No distress. She does not appear to have CHF. This appears to be exacerbation of her COPD with acute on chronic respiratory failure. Bumex has been discontinued. She became hyperglycemic from parenteral steroid therapy administered on admission. Lantus has been switched to NPH insulin temporarily. Review of Systems 2 Review of Systems: Constitutional-no fever or chills ENT-no blurred vision, no double vision, no epistaxis, no sore throat Respiratory-wheezing, dyspnea on exertion. Cardiac-no palpitations, no chest pain, no syncope GI-no nausea, vomiting, diarrhea, melena, hematochezia -no urinary retention, no urinary incontinence, no dysuria, no hematuria Musculoskeletal-no joint pain, no muscle tenderness Skin-no bruising, no rashes, no pruritus Neuro-no isolated weakness, no paresthesia, no weakness Psych-no depression, no anxiety Physical Exam 2 Physical Exam: General-alert and oriented x3, no fevers, no chills HEENT-head atraumatic and normocephalic, pupils equal and reactive to light, extraocular muscles intact Neck-no lymphadenopathy or thyromegaly, trachea midline Chest-bilateral barraza expiratory wheezes. Midline rhonchi with forced cough. No dullness to percussion. No inspiratory rales. Cardiac-regular rate and rhythm, normal S1 and S2 Abdomen-normal bowel sounds, nontender, no hepatosplenomegaly Extremities-no cyanosis, clubbing, or edema Neuro-cranial nerves II through XII intact, motor and sensory function within normal limits, strength symmetrical, no focal deficits Psych-normal affect, normal mood Results & Data Results & Data Vital Signs (Past 12 Hours) Vital Signs Temp Pulse Pulse Pulse Resp BP Pulse Ox 05/08/23 11:58 37.1 C 90 16 108/76 95 05/08/23 11:27 80 17 94 05/08/23 08:08 05/08/23 08:04 36.6 C 92 H 18 135/86 91 05/08/23 07:31 85 05/08/23 07:18 81 17 94 05/08/23 03:56 36.6 C 86 18 127/77 91 05/08/23 00:43 90 O2 Del Method 05/08/23 11:58 Room Air 05/08/23 11:27 Room Air 05/08/23 08:08 Room Air 05/08/23 08:04 Room Air 05/08/23 07:31 05/08/23 07:18 Room Air 05/08/23 03:56 Room Air 05/08/23 00:43 Laboratory Results 05/08/23 05:19 05/08/23 05:19 PG Care Time/CCT Total # of Minutes Spent Total Time Spent with Patient: Total time spent is greater than 50% in coordination of care (as documented) at patient's floor/unit and/or counseling patient: Coding Level of Care Code 65011 SUB INP/OBS CARE 3/50MIN Diagnoses Acute on chronic respiratory failure with hypoxia J96.21 Obesity hypoventilation syndrome E66.2 COPD exacerbation J44.1 CHF exacerbation I50.9 Chronic anticoagulation Z79.01 Tobacco abuse Z72.0 History of pulmonary embolism Z86.711 Multiple myeloma C90.00 Multiple myeloma remission status: unspecified Diabetes E11.9 (8) Multiple myeloma Multiple myeloma remission status: unspecified Qualified Code(s): C90.00 - Multiple myeloma not having achieved remission
[2023-05-08] MEDS: ENOXAPARIN 100 MG/1ML SYR SQ SCH (21:02)
[2023-05-09] MEDS ORDERED: IBUPROFEN 600 MG TAB PO STA (05:54)
[2023-05-09 06:35] LABS: Basophils # (auto) 0.08 K/uL (0.00-0.20); Basophils % (auto) 0.6 %; Eosinophils # (auto) 0.23 K/uL (0.00-0.50); Eosinophils % (auto) 1.7 %; Hematocrit (blood only) 47.3 % (37.0-47.0); Hemoglobin 14.7 g/dl (12.0-16.0); Immature Granulocytes # (auto) 0.06 K/uL (0.01-0.20); Immature Granulocytes % (auto) 0.5 %; Lymphocytes # (auto) 4.08 K/uL (1.20-3.40); Lymphocytes % (auto) 30.7 %; Mean Corpuscular Hemoglobin 25.7 pg (25.0-34.0); Mean Corpuscular Hgb Conc 31.1 g/dL (32.0-36.0); Mean Corpuscular Volume 82.8 fL (80.0-100.0); Mean Platelet Volume 9.9 fL (9.4-12.4); Monocytes # (auto) 0.79 K/uL (0.11-0.59); Monocytes % (auto) 5.9 %; Neutrophils # (auto) 8.07 K/uL (1.40-6.50); Neutrophils % (auto) 60.6 %; Platelet Count 317 K/uL (130-400); RDW Coefficient of Variation 14.6 % (11.5-14.5); RDW Standard Deviation 43.5 fL (36.4-46.3); Red Blood Count 5.71 M/uL (4.20-5.40); White Blood Count 13.31 K/ul (4.8-10.8)
[2023-05-09 06:51] LABS: BUN Creatinine Ratio 32.1 (10-20); Calcium 9.5 mg/dl (8.6-10.3); Creatinine Clr Calc Pharmacy 74.4 ml/min; Est GFR (African American) 90.2 ml/min; Est GFR (Non-African American) 77.8 ml/min; Potassium 3.4 mmol/L (3.5-5.1)
[2023-05-09] MEDS: IPRATROPIUM BROMIDE NEB SOLN 0.02% 2.5 ML VIAL INH SCH ×2 (07:01→11:22)
[2023-05-09] MEDS: LEVALBUTEROL 1.25 MG/3 ML NEB INH SCH ×2 (07:01→11:23)
[2023-05-09] MEDS: BUDESONIDE 0.5 MG/2 ML VIAL (PULMICORT) NEB SCH (07:02)
[2023-05-09] MEDS: guaiFENesin 600 MG TABCR PO SCH (07:49)
[2023-05-09] MEDS: FLUTICASONE FUROATE 200MCG 14 PUFFS/INHALER INH SCH (07:59)
[2023-05-09] MEDS: POTASSIUM CHLORIDE CRTAB 20 MEQ TABCR PO SCH (07:59)
[2023-05-09] MEDS: ENOXAPARIN 100 MG/1ML SYR SQ SCH (07:59)
[2023-05-09] MEDS: UMECLIDINIUM/VILANTEROL 62.5/25MCG 7 PUFFS/INHALER INH SCH (07:59)
[2023-05-09] MEDS: ALPRAZolam 0.5 MG TABLET PO SCH (07:59)
[2023-05-09] MEDS: BUPRENORPHINE/NALOXONE 8/2 MG TAB SL SCH (07:59)
[2023-05-09] MEDS: INSULIN ASPART PER UNIT CHARGE SC SCH ×2 (09:56→12:53)
[2023-05-09] MEDS: INSULIN HUMAN NPH SC SCH (09:56)
--- NOTE | 2023-05-09 12:32 | Discharge Summary ---
Date of Service May 09, 2023 Admission HPI Per Admitting Provider The patient is a 63-year-old female with a past medical history including COPD, tobacco abuse, CHF, opiate dependence, multiple myeloma, chronic low back pain, history of pulmonary embolism, diabetes mellitus, and recent admissions from 02/15-02/17/2023, and 03/02-03/06/2023 for similar symptoms. She reports that she did have some improvement last admission, but over the past few days has had a return of symptoms, particular when the weather recently got colder. She has been taking her medications as directed, however, she was not able to get BiPAP machine at her home due to it not being delivered to her home for unknown reasons Principal Diagnosis Acute exacerbation COPD, acute on chronic respiratory failure, steroid-induced hyperglycemia Discharge Exam General-alert and oriented x3, no fevers, no chills HEENT-head atraumatic and normocephalic, pupils equal and reactive to light, extraocular muscles intact Neck-no lymphadenopathy or thyromegaly, trachea midline Chest-bilateral end expiratory wheezes. Midline rhonchi with forced cough. No dullness to percussion. No inspiratory rales. Cardiac-regular rate and rhythm, normal S1 and S2 Abdomen-normal bowel sounds, nontender, no hepatosplenomegaly Extremities-no cyanosis, clubbing, or edema Neuro-cranial nerves II through XII intact, motor and sensory function within normal limits, strength symmetrical, no focal deficits Psych-normal affect, normal mood Discharge Data Allergies Allergy/AdvReac Type Severity Reaction Status Date / Time codeine Allergy Severe Anaphylaxis Verified 03/02/23 19:48 Iodinated Contrast Media Allergy Severe Anaphylaxis Verified 03/02/23 19:48 shellfish derived Allergy Severe Anaphylaxis Verified 03/02/23 19:48 tramadol Allergy Intermediate ITCHINESS Verified 03/02/23 19:48 iohexol Allergy Unknown CAN'T Verified 03/02/23 19:48 REMEMBER diphenhydramine AdvReac Severe Anxiety Verified 03/02/23 19:48 [From Benadryl] montelukast [From Singulair] AdvReac Intermediate Anxiety Verified 03/02/23 19:48 promethazine AdvReac Intermediate Anxiety Verified 03/02/23 19:48 Consultations 05/07/23 20:20 ED Decision to Admit Stat Hospital Course (1) Acute on chronic respiratory failure with hypoxia: Oxygen has been weaned back to her baseline. (2) Obesity hypoventilation syndrome: Supportive care. Significant weight loss recommended (3) COPD exacerbation: Parenteral steroid therapy administered in the ED with resultant hyperglycemia. Continue nebulizer treatments. Improved (4) CHF exacerbation: Ruled out (5) Chronic anticoagulation: She is chronically on Lovenox subcu (6) Tobacco abuse: Smoking cessation recommended (7) History of pulmonary embolism: Continue Lovenox therapy (8) Multiple myeloma: Outpatient oncology follow-up (9) Diabetes: ADA diet. Lantus temporarily switched to NPH insulin while hospitalized. She will resume her usual regimen at discharge. Sliding scale coverage. Plan Home today, May 09 Total Time Total Time Spent Total Time Spent (In Minutes): 45 minutes Discharge Plan Discharge Items Patient Disposition: Home - Self-Care Reason For Visit: ACUTE ON CHRONIC RESP FAILURE WITH HYPOXIA Discharge Diagnosis: Acute exacerbation COPD, acute on chronic respiratory failure with hypoxia, steroid-induced hyperglycemia Activity: Resume your previous activity Non-emergency contact: Primary Care Provider Call non-emergency contact if: your symptoms worsen Follow-up/Referrals: Radha Barboza PA-C [Primary Care Provider] - (PLEASE CALL YOUR PRIMARY CARE PROVIDER TO SCHEDULE A HOSPITAL DISCHARGE FOLLOW-UP APPOINTMENT WITHIN 7-10 DAYS.) Diet: Carb Consistent or DM2 and Heart Healthy Addtl Attending Provider Instructions: Home medications remain the same Pending Studies at Discharge: No Stand-Alone Forms: [facility], Smoking Cessation Medications and DC Order Prescriptions: Continued ondansetron HCl 4 mg Tablet 4 mg PO Q8H PRN (Reason: NAUSEA/VOMITING) quetiapine 200 mg tablet 200 mg PO HS nystatin 100,000 unit/gram Powder 1 applic TOPICAL BID PRN (Reason: UNDER BREASTS NEEDED.) buprenorphine-naloxone 8-2 mg film 1 film sublingual BID insulin glargine 100 unit/mL (3 mL) insulin pen 60 unit SUBCUT QAM alprazolam 0.5 mg tablet 0.5 mg PO BID Qty: 14 0RF Rx Instructions: pt requesting to take same time as suboxone bumetanide 2 mg tablet 4 mg PO BID enoxaparin 150 mg/mL syringe 150 mg subcut QAM metformin 500 mg tablet extended release 24 hr 500 mg PO DAILY Rx Instructions: has not started yet wants clairification first insulin aspart U-100 [Novolog FlexPen U-100 Insulin] 100 unit/mL (3 mL) insulin pen 10 unit SUBCUT AC Trelegy Ellipta 200-62.5-25 mcg blister with device 1 ea INHALATION QAM levalbuterol tartrate 45 mcg/actuation HFA aerosol inhaler 2 puff INHALATION Q4 PRN (Reason: WHEEZE) levalbuterol HCl 1.25 mg/3 mL solution for nebulization 1.25 mg INHALATION TID PRN (Reason: Shortness Of Breath Or Wheezing) ipratropium bromide 0.02 % solution 3 ml continuous nebulization QID Discharge Orders: Discharge Order (Routine); Ordered 05/09/23 Ordered By: Maurilio Herndon Admission Data Admit Date/Time: 05/07/23 21:04 Attending Provider: Maurilio Herndon Admit Provider: Casey Aguilar Primary Care Provider: Radha Barboza Other Providers: Casey Aguilar Coding Level of Care Code 57916 INP/OBS DISCH >30 MIN Diagnoses Acute on chronic respiratory failure with hypoxia J96.21 Obesity hypoventilation syndrome E66.2 COPD exacerbation J44.1 CHF exacerbation I50.9 Chronic anticoagulation Z79.01 Tobacco abuse Z72.0 History of pulmonary embolism Z86.711 Multiple myeloma C90.00 Multiple myeloma remission status: unspecified Diabetes E11.9
== END 2023-05-09 13:43 | disposition home or self-care (01) | DRG 190 ==
LOC: ED 16:21 → EDINP 21:04 → SUATTDRO 21:04 → 2N 23:35

== ENCOUNTER 2023-05-31 18:21 | Inpatient (IN) ==
[2023-05-31 19:25] LABS: Basophils # (auto) 0.06 K/uL (0.00-0.20); Basophils % (auto) 0.3 %; Eosinophils # (auto) 0.08 K/uL (0.00-0.50); Eosinophils % (auto) 0.4 %; Hematocrit (blood only) 45.8 % (37.0-47.0); Hemoglobin 15.1 g/dl (12.0-16.0); Immature Granulocytes # (auto) 0.09 K/uL (0.01-0.20); Immature Granulocytes % (auto) 0.5 %; Lymphocytes % (auto) 23.2 %; Mean Corpuscular Hemoglobin 26.2 pg (25.0-34.0); Mean Corpuscular Volume 79.4 fL (80.0-100.0); Mean Platelet Volume 9.9 fL (9.4-12.4); Monocytes # (auto) 1.03 K/uL (0.11-0.59); Monocytes % (auto) 5.4 %; Neutrophils # (auto) 13.31 K/uL (1.40-6.50); Neutrophils % (auto) 70.2 %; Platelet Count 351 K/uL (130-400); RDW Coefficient of Variation 14.6 % (11.5-14.5); RDW Standard Deviation 41.5 fL (36.4-46.3); Red Blood Count 5.77 M/uL (4.20-5.40); White Blood Count 18.97 K/ul (4.8-10.8)
[2023-05-31 19:37] LABS: Alanine Aminotransferase 14 U/L (7-52); Albumin Globulin Ratio 1.4 (0.9-2); Albumin Level 4.2 gm/dl (3.4-5.0); Alkaline Phosphatase 119 U/L (34-104); Anion Gap 10 (3-11); Aspartate Aminotransferase 12 U/L (13-39); BUN Creatinine Ratio 25.8 (10-20); Bilirubin,Total 0.4 mg/dl (0.2-1.0); Blood Urea Nitrogen 25 mg/dl (6-23); Calcium 9.8 mg/dl (8.6-10.3); Carbon Dioxide 32 mmol/L (21-32); Chloride 96 mmol/L (98-107); Est GFR (African American) 72.5 ml/min; Est GFR (Non-African American) 62.6 ml/min; Globulin 3.1 gm/dl (2.5-4.0); Glucose 119 mg/dl (70-99(Fasting)); Potassium 3.2 mmol/L (3.5-5.1); Sodium 138 mmol/L (136-145); Total Protein 7.3 gm/dl (6.0-8.3)
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
[2023-05-31 19:50] LABS: Partial Thromboplastin Time 27 Seconds (21-31)
[2023-05-31] MEDS: ALPRAZolam 0.5 MG TABLET PO STA (19:50)
[2023-05-31] MEDS: ALBUT/IPRATROP 3MG/0.5MG NEB 3 ML VIAL NEB ONE (19:50)
[2023-05-31] MEDS: MAGNESIUM SULFATE / D5W 1 GM/100 ML BAG IV STA (19:50)
[2023-05-31 20:42] LABS: Magnesium 1.7 mg/dl (1.7-2.4)
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
[2023-05-31] MEDS ORDERED: GLUCAGON FOR INJ 1 MG VIAL SQ PRN (23:26)
[2023-05-31] MEDS ORDERED: GLUCOSE 40% GEL 15 GM TUBE PO PRN (23:26)
[2023-05-31] MEDS ORDERED: ACETAMINOPHEN 325 MG TAB PO PRN (23:26)
[2023-05-31] MEDS ORDERED: ONDANSETRON INJ 2 MG/ML 2 ML VIAL IV PRN (23:26)
[2023-05-31] MEDS ORDERED: LEVALBUTEROL HCL 0.63 MG/3 ML NEB NEB PRN (23:26)
[2023-05-31] MEDS ORDERED: CARBOHYDRATES FOR HYPOGLYCEMIA PO PRN (23:26)
[2023-05-31] MEDS ORDERED: DEXTROSE 50% 50 ML SYRINGE IV PRN (23:26)
[2023-05-31] MEDS ORDERED: GLUCOSE 10 TAB/TUBE PO PRN (23:26)
[2023-05-31] MEDS: BUMETANIDE 4 MG in SYRINGE 0 ML IV ONE (23:52)
[2023-05-31] MEDS: AZITHROMYCIN 500 MG in DEXTROSE 5% 250 ML IV STA (23:52)
[2023-05-31 23:54] LABS: Phosphorus 4.6 mg/dl (2.5-4.9)
[2023-06-01 00:13] LABS: Adenovirus PCR Not Detected (NotDetected); Bordetella parapertussis PCR Not Detected (NotDetected); Bordetella pertussis PCR Not Detected (NotDetected); Chlamydia pneumoniae PCR Not Detected (NotDetected); Coronavirus 229E PCR Not Detected (NotDetected); Coronavirus CoV-2 (COVID19)PCR Not Detected (NotDetected); Coronavirus HKU1 PCR Not Detected (NotDetected); Coronavirus NL63 PCR Not Detected (NotDetected); Coronavirus OC43PCR Not Detected (NotDetected); Human Metapneumovirus PCR Not Detected (NotDetected); Influenza A PCR Not Detected (NotDetected); Influenza B PCR Not Detected (NotDetected); Mycoplasma pneumoniae PCR Not Detected (NotDetected); Parainfluenza Virus 1 PCR Not Detected (NotDetected); Parainfluenza Virus 2 PCR Not Detected (NotDetected); Parainfluenza Virus 3 PCR Not Detected (NotDetected); Parainfluenza Virus 4 PCR Not Detected (NotDetected); Respiratory Syncytial VirusPCR Not Detected (NotDetected); Rhinovirus/Enterovirus PCR Not Detected (NotDetected)
[2023-06-01] MEDS: BUPRENORPHINE/NALOXONE 8/2 MG TAB SL STA (01:01)
[2023-06-01] MEDS: ALPRAZolam 0.5 MG TABLET PO STA (01:01)
[2023-06-01] MEDS: QUEtiapine FUMARATE 200 MG TAB PO STA (01:01)
[2023-06-01] MEDS: ALBUT/IPRATROP 3MG/0.5MG NEB 3 ML VIAL NEB SCH (03:09)
[2023-06-01 04:22] LABS: Hematocrit (blood only) 42.2 % (37.0-47.0); Hemoglobin 13.9 g/dl (12.0-16.0); Mean Corpuscular Hemoglobin 26.3 pg (25.0-34.0); Mean Corpuscular Hgb Conc 32.9 g/dL (32.0-36.0); Mean Corpuscular Volume 79.9 fL (80.0-100.0); Mean Platelet Volume 9.9 fL (9.4-12.4); Platelet Count 322 K/uL (130-400); RDW Coefficient of Variation 14.6 % (11.5-14.5); Red Blood Count 5.28 M/uL (4.20-5.40); White Blood Count 13.83 K/ul (4.8-10.8)
[2023-06-01 04:40] LABS: BUN Creatinine Ratio 26.6 (10-20); Calcium 8.7 mg/dl (8.6-10.3); Creatinine Clr Calc Pharmacy 83.7 ml/min; Est GFR (Non-African American) 80.2 ml/min; Potassium 2.8 mmol/L (3.5-5.1)
--- NOTE | 2023-06-01 07:25 | XRay Report ---
XR chest 1V not portable HISTORY: 63 years-old Female Chest pain, nonspecific acute chest pain COMPARISON: Chest radiograph 05/30/2023, chest CT 06/21/2022 TECHNIQUE: AP view of the chest FINDINGS: The cardiomediastinal and hilar silhouettes are within normal limits. No pneumothorax, pleural effusi on or pulmonary edema. There is mild nonspecific interstitial coarsening. Unchanged appearance of the anterior right fourth rib with an expansile sclerotic lesion. The bones of the chest appear grossly intact. IMPRESSION: 1. No acute process of the chest. 2. Unchanged expansile lesion of the anterior right fourth rib. ACT 112: Negative or not required by law. The above report was generated using voice recognition software. It may contain grammatical, syntax o r spelling errors. Electronically signed by: Avi Leon M.D. 06/01/2023 7:23 AM
[2023-06-01] MEDS: guaiFENesin 600 MG TABCR PO SCH (08:52)
[2023-06-01] MEDS: POLYETHYLENE (MIRALAX) 17 GM PACK PO SCH (08:53)
[2023-06-01] MEDS: ENOXAPARIN 150 MG/ML SYR SQ SCH (08:53)
[2023-06-01] MEDS: BUMETANIDE 2 MG in SYRINGE 0 ML IV SCH (08:54)
[2023-06-01] MEDS: ALPRAZolam 0.5 MG TABLET ONE (08:54)
[2023-06-01] MEDS: FLUTICASONE FUROATE 200MCG 14 PUFFS/INHALER INH SCH (08:55)
[2023-06-01] MEDS: ALPRAZolam 0.5 MG TABLET PO SCH (08:55)
[2023-06-01] MEDS: UMECLIDINIUM/VILANTEROL 62.5/25MCG 7 PUFFS/INHALER INH SCH (08:55)
[2023-06-01] MEDS: INSULIN ASPART PER UNIT CHARGE SC SCH (08:56)
[2023-06-01] MEDS ORDERED: methylPREDNISolone 40 MG in SYRINGE 0 ML IV SCH (09:00)
[2023-06-01] MEDS ORDERED: LANTUS PER UNIT CHARGE SQ SCH (09:00)
[2023-06-01] MEDS: BUPRENORPHINE/NALOXONE 8/2 MG TAB SL SCH (09:45)
[2023-06-01] MEDS: LANTUS PER UNIT CHARGE SQ SCH ×2 (09:45→20:37)
[2023-06-01] MEDS: POTASSIUM CHLORIDE CRTAB 20 MEQ TABCR PO STA (09:45)
[2023-06-01] MEDS: POTASSIUM CHLORIDE / WTR 10 MEQ/100 ML PLCT IV SCH (09:46)
[2023-06-01] MEDS: methylPREDNISolone 40 MG in SYRINGE 0 ML IV SCH (09:58)
--- NOTE | 2023-06-01 12:49 | Electrocardiogram Report ---
Test Reason : Blood Pressure : / mmHG Vent. Rate : 105 BPM Atrial Rate : 105 BPM P-R Int : 160 ms QRS Dur : 082 ms QT Int : 342 ms P-R-T Axes : 053 020 046 degrees QTc Int : 452 ms Sinus tachycardia Low voltage QRS Abnormal ECG When compared with ECG of 30-MAY-2023 14:51, Criteria for Anterior infarct no longer present Confirmed by Reagan Caraballo ([id number]) on 06/01/2023 12:49:17 PM Referred By: REFERRED SELF Confirmed By:Reagan Caraballo
[2023-06-01] MEDS: AZITHROMYCIN 250 MG in DEXTROSE 5% 250 ML IV SCH (13:37)
--- NOTE | 2023-06-01 13:57 | Hospitalist Progress Note ---
Date of Service June 01, 2023 Assessment & Plan (1) Acute on chronic respiratory failure with hypoxia: Plan: 63yo female with history of chronic hypoxic respiratory failure on 2L supplemental O2, COPD, Obesity hypoventilation and HFpEF prestnting with acute on chronic respiratory failure with hypoxia. Patient improved after neb treatment and Mg administered in the ER. Now breathing comfortably on 2L NC. Likely secondary to acute exacerbation of COPD as well as some volume overload. Patient reports compliance with her medications. Reports decreased UOP even with Bumex. For volume overload (patient has history of HFpEF) she will be treated with Bumex 4 mg IV twice daily. Monitor I's and O's and daily weights. Monitor BMP For COPD exacerbation, she is being treated with IV Solu-Medrol. I will reduce the dose to 40 IV twice daily. Continue IV ceftriaxone and azithromycin. Continue DuoNebs. Continue trilogy (2) History of pulmonary embolism: Plan: Chronic. Stable. Patient on Lovenox daily -Continue Lovenox (3) Diabetes: Plan: Poorly controlled diabetes with last PejC1Y=79.5 on 05/08/23 Sugars running high due to steroids. Reduce the dose of IV steroid -Increase the dose of Lantus to home dose equivalent by increasing to Lantus 30 units twice daily -ISS -Goal blood sugar 110 - 140 Ppx - Continue Lovenox Code - Full Admission and Anticipated Discharge Date Admission Date: May 31, 2023 Subjective Patient says that she is feeling better than when she first came to the emergency room. However she is still short of breath. Review of Systems Review of Systems: All systems reviewed & are unremarkable except as noted in Subjective Physical Exam Physical Exam: General: Awake, conversant. Obese woman Heart: S1, S2/regular rate and rhythm, no murmur rubs or gallops Lungs: Bilateral wheezing heard with prolonged expiration. Normal effort Abdomen: Soft/nontender/nondistended. No hepatosplenomegaly Extremities: No clubbing/cyanosis. No edema Behavior: Appropriate, cooperative Results & Data Results & Data Vital Signs (Past 12 Hours) Vital Signs Temp Pulse Resp BP Pulse Ox O2 Del Method O2 Flow Rate 06/01/23 13:30 Room Air 06/01/23 12:25 36.8 C 83 16 110/75 94 Room Air 06/01/23 11:12 92 H 18 95 Room Air 06/01/23 09:21 95 H 20 110/71 94 Nasal Cannula 2 06/01/23 07:07 82 18 93 Nasal Cannula 2 06/01/23 04:00 78 20 145/92 H 93 Nasal Cannula 2 Laboratory Results Abnormal lab results 05/31/23 06/01/23 06/01/23 Range/Units 18:54 03:50 07:40 WBC 18.97 H 13.83 H (4.8-10.8) K/ul RBC 5.77 H (4.20-5.40) M/uL MCV 79.4 L 79.9 L (80.0-100.0) fL RDW Coeff of Malick 14.6 H 14.6 H (11.5-14.5) % Neut # (Auto) 13.31 H (1.40-6.50) K/uL Lymph # (Auto) 4.40 H (1.20-3.40) K/uL Denali # (Auto) 1.03 H (0.11-0.59) K/uL Potassium 3.2 L 2.8 L (3.5-5.1) mmol/L Chloride 96 L 96 L (98-107) mmol/L BUN 25 H (6-23) mg/dl BUN/Creatinine Ratio 25.8 H 26.6 H (10-20) Glucose 119 H 322 H* (70-99(Fasting)) mg/dl POC Glucose 227 H (70-99) mg/dl AST 12 L (13-39) U/L Alkaline Phosphatase 119 H (34-104) U/L 06/01/23 Range/Units 12:14 WBC (4.8-10.8) K/ul RBC (4.20-5.40) M/uL MCV (80.0-100.0) fL RDW Coeff of Malick (11.5-14.5) % Neut # (Auto) (1.40-6.50) K/uL Lymph # (Auto) (1.20-3.40) K/uL Denali # (Auto) (0.11-0.59) K/uL Potassium (3.5-5.1) mmol/L Chloride (98-107) mmol/L BUN (6-23) mg/dl BUN/Creatinine Ratio (10-20) Glucose (70-99(Fasting)) mg/dl POC Glucose 292 H (70-99) mg/dl AST (13-39) U/L Alkaline Phosphatase (34-104) U/L Diagnostic Findings Chest X-Ray 05/31/23 18:37 XR chest 1V not portable HISTORY: 63 years-old Female Chest pain, nonspecific acute chest pain COMPARISON: Chest radiograph 05/30/2023, chest CT 06/21/2022 TECHNIQUE: AP view of the chest FINDINGS: The cardiomediastinal and hilar silhouettes are within normal limits. No pneumothorax, pleural effusion or pulmonary edema. There is mild nonspecific interstitial coarsening. Unchanged appearance of the anterior right fourth rib with an expansile sclerotic lesion. The bones of the chest appear grossly intact. IMPRESSION: 1. No acute process of the chest. 2. Unchanged expansile lesion of the anterior right fourth rib. ACT 112: Negative or not required by law. The above report was generated using voice recognition software. It may contain grammatical, syntax or spelling errors. Electronically signed by: Avi Leon M.D. 06/01/2023 7:23 AM PG Care Time/CCT Total # of Minutes Spent Total Time Spent with Patient: Total time spent is greater than 50% in coordination of care (as documented) at patient's floor/unit and/or counseling patient: Coding Level of Care Code 81190 SUB INP/OBS CARE 235MIN Diagnoses Acute on chronic respiratory failure with hypoxia J96.21 History of pulmonary embolism Z86.711 Diabetes E11.9
[2023-06-01 17:07] LABS: BUN Creatinine Ratio 17.7 (10-20); Calcium 8.8 mg/dl (8.6-10.3); Creatinine Clr Calc Pharmacy 53.3 ml/min; Est GFR (African American) 53.9 ml/min; Est GFR (Non-African American) 46.5 ml/min; Potassium 4.6 mmol/L (3.5-5.1)
[2023-06-01] MEDS: INSULIN ASPART PER UNIT CHARGE SC STA (17:46)
[2023-06-01] MEDS: QUEtiapine FUMARATE 200 MG TAB PO SCH (20:38)
[2023-06-01] MEDS: SOD PHOSPHATE/SOD BIPHOSPHATE ENEMA 132 ML BTL PR STA (22:14)
[2023-06-02 06:44] LABS: BUN Creatinine Ratio 32.9 (10-20); Calcium 9.1 mg/dl (8.6-10.3); Creatinine Clr Calc Pharmacy 81.9 ml/min; Est GFR (Non-African American) 80.2 ml/min; Potassium 4.3 mmol/L (3.5-5.1)
[2023-06-02] MEDS: SOD PHOSPHATE/SOD BIPHOSPHATE ENEMA 132 ML BTL PR PRN (08:39)
[2023-06-02] MEDS: methylPREDNISolone 40 MG in SYRINGE 0 ML IV SCH (10:50)
[2023-06-02] MEDS: INSULIN ASPART PER UNIT CHARGE SC STA (13:09)
[2023-06-02] MEDS ORDERED: PHARMACY GLYCEMIC MGMT CONSULT PRN (14:13)
--- NOTE | 2023-06-02 14:19 | Hospitalist Progress Note ---
Date of Service June 02, 2023 Assessment & Plan (1) Acute on chronic respiratory failure with hypoxia: Plan: 63yo female with history of chronic hypoxic respiratory failure on 2L supplemental O2, COPD, Obesity hypoventilation and HFpEF prestnting with acute on chronic respiratory failure with hypoxia. Patient improved after neb treatment and Mg administered in the ER. Now breathing comfortably on 2L NC. Likely secondary to acute exacerbation of COPD as well as some volume overload. Patient reports compliance with her medications. Reports decreased UOP even with Bumex. For volume overload (patient has history of HFpEF) she was being treated with Bumex 4 mg IV twice daily. Considering switching to p.o. Bumex starting tomorrow. Patient received IV Bumex 4 mg this morning. Monitor I's and O's and daily weights. Monitor BMP For COPD exacerbation, she is being treated with IV Solu-Medrol. I will reduce the dose further to 40 mg IV once daily. Continue IV ceftriaxone and azithromycin. Continue DuoNebs. Continue trilogy (2) History of pulmonary embolism: Plan: Chronic. Stable. Patient on Lovenox daily -Continue Lovenox (3) Diabetes: Plan: Poorly controlled diabetes with last NncP7G=64.5 on 05/08/23 Sugars running high due to steroids. Reduce the dose of IV steroid -Increase the dose of Lantus to home dose equivalent by increasing to Lantus 30 units twice daily -ISS -Goal blood sugar 110 - 140 Ppx - Continue Lovenox Code - Full Admission and Anticipated Discharge Date Admission Date: May 31, 2023 Subjective Patient still complains of wheezing. Noted that she is on room air now. She says she feels short of breath on exertion but not at rest. Review of Systems Review of Systems: All systems reviewed & are unremarkable except as noted in Subjective Physical Exam Physical Exam: General: Awake, conversant. Obese woman Heart: S1, S2/regular rate and rhythm, no murmur rubs or gallops Lungs: Bilateral wheezing heard with prolonged expiration. Normal effort Abdomen: Soft/nontender/nondistended. No hepatosplenomegaly Extremities: No clubbing/cyanosis. No edema Behavior: Appropriate, cooperative Results & Data Results & Data Vital Signs (Past 12 Hours) Vital Signs Temp Pulse Pulse Resp BP Pulse Ox O2 Del Method 06/02/23 11:25 36.4 C L 64 16 115/77 95 Room Air 06/02/23 10:35 105 H 17 92 Room Air 06/02/23 07:58 71 16 116/70 97 Room Air 06/02/23 07:41 87 17 91 Room Air 06/02/23 07:29 Room Air, Nasal Cannula 06/02/23 06:00 95 H 06/02/23 03:41 93 H 18 90 Room Air 06/02/23 02:57 36.5 C 78 18 129/78 92 Room Air Laboratory Results Abnormal lab results 06/01/23 06/01/23 06/01/23 Range/Units 16:25 17:07 17:08 Sodium 135 L (136-145) mmol/L Chloride 95 L (98-107) mmol/L BUN (6-23) mg/dl Creatinine 1.24 H D (0.6-1.2) mg/dl BUN/Creatinine Ratio (10-20) Glucose 436 H* (70-99(Fasting)) mg/dl POC Glucose 405 H* 373 H* (70-99) mg/dl 06/01/23 06/01/23 06/01/23 Range/Units 17:13 20:03 20:04 Sodium (136-145) mmol/L Chloride (98-107) mmol/L BUN (6-23) mg/dl Creatinine (0.6-1.2) mg/dl BUN/Creatinine Ratio (10-20) Glucose (70-99(Fasting)) mg/dl POC Glucose 374 H* 363 H* 382 H* (70-99) mg/dl 06/02/23 06/02/23 06/02/23 Range/Units 05:49 08:12 12:18 Sodium (136-145) mmol/L Chloride (98-107) mmol/L BUN 26 H (6-23) mg/dl Creatinine (0.6-1.2) mg/dl BUN/Creatinine Ratio 32.9 H (10-20) Glucose 297 H (70-99(Fasting)) mg/dl POC Glucose 276 H 320 H* (70-99) mg/dl 06/02/23 Range/Units 12:19 Sodium (136-145) mmol/L Chloride (98-107) mmol/L BUN (6-23) mg/dl Creatinine (0.6-1.2) mg/dl BUN/Creatinine Ratio (10-20) Glucose (70-99(Fasting)) mg/dl POC Glucose 331 H* (70-99) mg/dl PG Care Time/CCT Total # of Minutes Spent Total Time Spent with Patient: Total time spent is greater than 50% in coordination of care (as documented) at patient's floor/unit and/or counseling patient: Coding Level of Care Code 30551 SUB INP/OBS CARE 2/35MIN Diagnoses Acute on chronic respiratory failure with hypoxia J96.21 History of pulmonary embolism Z86.711 Diabetes E11.9
--- NOTE | 2023-06-02 14:35 | Pharmacy Report ---
Pharmacy Glycemic Short Note 2 - Date of Service June 02, 2023 - Glycemic Short BSG Results (Last 24 hours): 06/01/23 06/01/23 06/01/23 16:25 17:07 17:08 Glucose 436 H* POC Glucose 405 H* 373 H* 06/01/23 06/01/23 06/01/23 17:13 20:03 20:04 Glucose POC Glucose 374 H* 363 H* 382 H* 06/02/23 06/02/23 06/02/23 05:49 08:12 12:18 Glucose 297 H POC Glucose 276 H 320 H* 06/02/23 12:19 Glucose POC Glucose 331 H* OUTPATIENT ANTIDIABETIC REGIMEN: * Insulin glargine 60 units SC daily * Novolog 10 units SC AC * Metformin 500 mg PO daily HbA1c: 10.5% (05/08/23) ASSESSMENT: * LL is a 63 year old female, admitted on 05/31/23 w/ acute on chronic respiratory failure (likely multifactorial w/ obesity, COPD, and HFpEF) * Pharmacy consulted this afternoon due to persistent hyperglycemia, likely related to administration of high-dose IV steroids * Will tighten carb coverage significantly today and maintain other insulin doses at this time * If fasting BSG still significantly elevated tomorrow and steroids are to be continued, then will increase AM basal dose * Diet ordered PLAN FOR INPATIENT GLYCEMIC CONTROL: * Hold outpatient oral diabetes medications * Basal insulin * Lantus 35 units SQ BID * Bolus insulin * NovoLog per scale ACHS or Q6hrs while NPO * Goal Range: Low 110 mg/dL - High 140 mg/dL * Correction Factor: 20 mg/dL/unit * Nutritional / Prandial insulin per carb ratio of 1 unit per 5 grams CHO consumed
[2023-06-02] MEDS ORDERED: Nursing to Pharmacy Communication SCH (15:30)
[2023-06-02] MEDS: ALPRAZolam 0.5 MG TABLET PO SCH (17:15)
[2023-06-02 17:18] LABS: BUN Creatinine Ratio 30.9 (10-20); Creatinine Clr Calc Pharmacy 68.8 ml/min; Est GFR (African American) 75.4 ml/min; Potassium 4.5 mmol/L (3.5-5.1)
[2023-06-03] MEDS: INSULIN ASPART PER UNIT CHARGE SC SCH (00:21)
[2023-06-03] MEDS: BUMETANIDE 1 MG TAB PO SCH (07:54)
[2023-06-03 08:38] LABS: BUN Creatinine Ratio 38.4 (10-20); Calcium 9.4 mg/dl (8.6-10.3); Creatinine Clr Calc Pharmacy 75.2 ml/min; Est GFR (African American) 83.9 ml/min; Est GFR (Non-African American) 72.4 ml/min; Potassium 3.6 mmol/L (3.5-5.1)
--- NOTE | 2023-06-03 08:55 | Pharmacy Report ---
Pharmacy Glycemic Short Note 2 - Date of Service June 03, 2023 - Glycemic Short BSG Results (Last 24 hours): 06/02/23 06/02/23 06/02/23 12:18 12:19 16:39 Glucose 257 H POC Glucose 320 H* 331 H* 06/02/23 06/02/23 06/03/23 17:29 21:17 00:15 Glucose POC Glucose 271 H 322 H* 268 H 06/03/23 06/03/23 06/03/23 04:21 07:53 08:20 Glucose 89 POC Glucose 117 H 93 OUTPATIENT ANTIDIABETIC REGIMEN: * Insulin glargine 60 units SC daily * Novolog 10 units SC AC * Metformin 500 mg PO daily HbA1c: 10.5% (05/08/23) ASSESSMENT: 06/03/23: * Persistent hyperglycemia yesterday despite tightening of Novolog * Received 150 units of insulin (70 units of basal and 80 units of prandial/correctional bolus) * Steroids continue at methylprednisolone 40 mg IV daily - will adjust basal to give majority of daily dose in AM with steroid 06/02/23: * LL is a 63 year old female, admitted on 05/31/23 w/ acute on chronic respiratory failure (likely multifactorial w/ obesity, COPD, and HFpEF) * Pharmacy consulted this afternoon due to persistent hyperglycemia, likely related to administration of high-dose IV steroids * Will tighten carb coverage significantly today and maintain other insulin doses at this time * If fasting BSG still significantly elevated tomorrow and steroids are to be continued, then will increase AM basal dose * Diet ordered PLAN FOR INPATIENT GLYCEMIC CONTROL: * Hold outpatient oral diabetes medications * Basal insulin * Lantus 50 units SC daily * Lantus 0-15 units SC HS (see EHR for details) * Bolus insulin * NovoLog per scale ACHS or Q6hrs while NPO * Goal Range: Low 110 mg/dL - High 140 mg/dL * Correction Factor: 15 mg/dL/unit * Nutritional / Prandial insulin per carb ratio of 1 unit per 4 grams CHO consumed
[2023-06-03] MEDS: LANTUS PER UNIT CHARGE SQ SCH ×2 (09:06→20:39)
--- NOTE | 2023-06-03 12:50 | Hospitalist Progress Note ---
Date of Service June 03, 2023 Assessment & Plan (1) Acute on chronic respiratory failure with hypoxia: Plan: 63yo female with history of chronic hypoxic respiratory failure on 2L supplemental O2, COPD, Obesity hypoventilation and HFpEF prestnting with acute on chronic respiratory failure with hypoxia. Patient improved after neb treatment and Mg administered in the ER. Now breathing comfortably on 2L NC. Likely secondary to acute exacerbation of COPD as well as some volume overload. Patient reports compliance with her medications. Reports decreased UOP even with Bumex. For volume overload (patient has history of HFpEF) she was being treated with Bumex 4 mg IV twice daily. Was started on p.o. Bumex twice daily this morning. This is her home dose. Monitor I's and O's and daily weights. Monitor BMP For COPD exacerbation, she is being treated with IV Solu-Medrol. Will start p.o. prednisone starting tomorrow. Continue IV ceftriaxone and azithromycin. Continue DuoNebs. Continue trilogy Noted that the patient was walking in the room in the hallway. She claims that she is still short of breath with exertion. Noted that she is not needing any oxygen. She will be started on p.o. prednisone starting tomorrow. She is already on p.o. Bumex. She should be able to go home soon. (2) History of pulmonary embolism: Plan: Chronic. Stable. Patient on Lovenox daily -Continue Lovenox (3) Diabetes: Plan: Poorly controlled diabetes with last SmbD2A=35.5 on 05/08/23 Sugars running high due to steroids. Stop IV steroid, switch to p.o. prednisone. -ISS -Goal blood sugar 110 - 140 Ppx - Continue Lovenox Code - Full Admission and Anticipated Discharge Date Admission Date: May 31, 2023 Subjective Patient complains of feeling wheezy and shortness of breath on exertion. Noticed that she was walking in the room and down the hallway. Review of Systems Review of Systems: All systems reviewed & are unremarkable except as noted in Subjective Physical Exam Physical Exam: General: Awake, conversant. Obese woman Heart: S1, S2/regular rate and rhythm, no murmur rubs or gallops Lungs: Mild bilateral wheezing heard with prolonged expiration. Normal effort Abdomen: Soft/nontender/nondistended. No hepatosplenomegaly Extremities: No clubbing/cyanosis. No edema Behavior: Appropriate, cooperative Results & Data Results & Data Vital Signs (Past 12 Hours) Vital Signs Temp Pulse Pulse Resp BP BP Pulse Ox 06/03/23 11:38 36.9 C 95 H 18 137/83 94 06/03/23 11:21 103 H 20 95 06/03/23 09:00 06/03/23 07:55 36.5 C 84 18 132/83 94 06/03/23 07:31 102 H 22 88 L 06/03/23 07:25 84 06/03/23 03:14 36.5 C 96 H 18 134/73 93 06/03/23 02:39 18 95 O2 Del Method 06/03/23 11:38 Room Air 06/03/23 11:21 Room Air 06/03/23 09:00 Room Air, Nasal Cannula 06/03/23 07:55 Room Air 06/03/23 07:31 Room Air 06/03/23 07:25 06/03/23 03:14 Room Air 06/03/23 02:39 Room Air Laboratory Results Abnormal lab results 06/02/23 06/02/23 06/02/23 Range/Units 16:39 17:29 21:17 Chloride 96 L (98-107) mmol/L Carbon Dioxide 33 H (21-32) mmol/L BUN 29 H (6-23) mg/dl BUN/Creatinine Ratio 30.9 H (10-20) Glucose 257 H (70-99(Fasting)) mg/dl POC Glucose 271 H 322 H* (70-99) mg/dl 06/03/23 06/03/23 06/03/23 Range/Units 00:15 04:21 07:53 Chloride (98-107) mmol/L Carbon Dioxide 35 H (21-32) mmol/L BUN 33 H (6-23) mg/dl BUN/Creatinine Ratio 38.4 H (10-20) Glucose (70-99(Fasting)) mg/dl POC Glucose 268 H 117 H (70-99) mg/dl 06/03/23 Range/Units 12:02 Chloride (98-107) mmol/L Carbon Dioxide (21-32) mmol/L BUN (6-23) mg/dl BUN/Creatinine Ratio (10-20) Glucose (70-99(Fasting)) mg/dl POC Glucose 232 H (70-99) mg/dl PG Care Time/CCT Total # of Minutes Spent Total Time Spent with Patient: Total time spent is greater than 50% in coordination of care (as documented) at patient's floor/unit and/or counseling patient: Coding Level of Care Code 43175 SUB INP/OBS CARE 2/35MIN Diagnoses Acute on chronic respiratory failure with hypoxia J96.21 History of pulmonary embolism Z86.711 Diabetes E11.9
[2023-06-03] MEDS: LEVALBUTEROL HCL 0.63 MG/3 ML NEB NEB SCH (20:05)
[2023-06-03] MEDS ORDERED: Nursing to Pharmacy Communication SCH (23:15)
[2023-06-04] MEDS: predniSONE 20 MG TAB PO SCH (07:57)
[2023-06-04] MEDS: BUMETANIDE 1 MG TAB PO SCH (07:57)
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
== END 2023-06-04 12:09 | disposition home or self-care (01) | DRG 190 ==
LOC: ED 18:21 → SUATTDRO 23:08 → EDINP 23:08 → 2N 06-01 12:23

== ENCOUNTER 2023-06-30 16:47 | Inpatient (IN) ==
--- NOTE | 2023-06-30 17:31 | ED Triage Note ---
Date of Service June 30, 2023 Provider in Triage Author: Laura Howell History of Present Illness This patient was briefly evaluated while in triage. An abbreviated physical exam was performed. This patient is a 63-year-old Female who presents to the ED for evaluation of "short of breath and full of fluid." She was seen by her doctor today and was told to come here. They did an ambulatory pulse ox and her oxygen was 82. She has a history of COPD and CHF. Physical Exam GENERAL: Non-toxic and in no acute distress. HEENT: Pupils equal. No obvious scleral icterus. HEART: Regular rate and rhythm. LUNGS: Lung sounds diminished throughout. NEURO: Alert and oriented. No obvious neurological deficits on quick neuro exam. Initial orders for labs and / or imaging were placed and patient was placed in the waiting area until a bed is available. Please see further documentation for the full ED course. MDM / Impression Impression Impression: Acute dyspnea, Acute exacerbation of chronic obstructive pulmonary disease, Swelling of both lower extremities
--- NOTE | 2023-06-30 17:44 | XRay Report ---
XR chest 1V portable HISTORY: 63 years-old Female Dyspnea acute shortness of breath COMPARISON: 05/31/2023 TECHNIQUE: PA view the chest FINDINGS: Cardiac silhouette is mildly enlarged. Mild subsegmental bibasilar atelectasis. Chronic deformity of the anterior right fourth rib. Of the thorax, pleural effusion or lobar airspace consolidation. Periv ascular congestion. Cholecystectomy. IMPRESSION: 1. Cardiomegaly with pulmonary vascular congestion. 2. Mild bibasilar atelectasis. ACT 112: Negative or not required by law. The above report was generated using voice recognition software. It may contain grammatical, syntax o r spelling errors. Electronically signed by: Avi Leon M.D. 06/30/2023 5:42 PM
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
[2023-06-30 18:29] LABS: Basophils # (auto) 0.06 K/uL (0.00-0.20); Basophils % (auto) 0.4 %; Eosinophils # (auto) 0.33 K/uL (0.00-0.50); Eosinophils % (auto) 2.3 %; Hematocrit (blood only) 45.4 % (37.0-47.0); Hemoglobin 15.2 g/dl (12.0-16.0); Immature Granulocytes # (auto) 0.04 K/uL (0.01-0.20); Immature Granulocytes % (auto) 0.3 %; Lymphocytes % (auto) 20.7 %; Mean Corpuscular Hemoglobin 26.3 pg (25.0-34.0); Mean Corpuscular Hgb Conc 33.5 g/dL (32.0-36.0); Mean Corpuscular Volume 78.7 fL (80.0-100.0); Mean Platelet Volume 10.2 fL (9.4-12.4); Monocytes # (auto) 0.63 K/uL (0.11-0.59); Monocytes % (auto) 4.3 %; Neutrophils # (auto) 10.43 K/uL (1.40-6.50); Platelet Count 355 K/uL (130-400); RDW Coefficient of Variation 14.5 % (11.5-14.5); Red Blood Count 5.77 M/uL (4.20-5.40); White Blood Count 14.49 K/ul (4.8-10.8)
[2023-06-30 18:39] LABS: Albumin Globulin Ratio 1.3 (0.9-2); Albumin Level 3.9 gm/dl (3.4-5.0); BUN Creatinine Ratio 28.3 (10-20); Bilirubin,Total 0.3 mg/dl (0.2-1.0); Calcium 9.4 mg/dl (8.6-10.3); Creatinine Clr Calc Pharmacy 58.4 ml/min; Est GFR (African American) 65.2 ml/min; Est GFR (Non-African American) 56.2 ml/min; Potassium 3.3 mmol/L (3.5-5.1); Total Protein 6.9 gm/dl (6.0-8.3)
[2023-06-30 18:45] LABS: Troponin I High Sensitivity 11.9 pg/ml (0-14)
[2023-06-30] MEDS: LEVALBUTEROL HCL 0.63 MG/3 ML NEB NEB SCH (18:47)
[2023-06-30 18:49] LABS: Partial Thromboplastin Ratio 0.9; Partial Thromboplastin Time 26 Seconds (21-31); Prothrombin Time 10.7 Seconds (9.0-12.0)
[2023-06-30] MEDS: IPRATROPIUM BROMIDE NEB SOLN 0.02% 0.5MG/2.5ML VIAL INH SCH (18:51)
[2023-06-30 18:59] LABS: Influenza A virus by PCR Negative (Neg); Influenza B virus by PCR Negative (Neg); RSV by PCR Negative (Neg); SARS CoV2 RNA(COVID-19) Ceph NEGATIVE (Negative)
[2023-06-30] MEDS: XOPENEX/ATROVENT 0.63mg/0.5MG NEB COMBO NEB STA (19:16)
--- NOTE | 2023-06-30 21:02 | History & Physical Report ---
Date of Service June 30, 2023 Assessment & Plan (1) Acute on chronic respiratory failure with hypoxia: Plan: -Admit to med/tele on pulse oximetry -Currently hemodynamically stable and stable on 2L NC while at rest -At this time the patient's presentation and acute on chronic hypoxic respiratory failure is most consistent with a COPD exacerbation -While the patient has been admitted recently with possible CHF exacerbation, she does not appear volume overloaded on exam, CXR appears stable compared to previous -At this time her ongoing smoking is likely playing a large role on her frequent admissions over the past 6 months -No focal consolidations noted on admission -S/P 40 mg IV solu-medrol, levalbuterol, and ipratropium nebs in the ED -Will treat as a COPD exacerbation for now with the following: >Azithromycin and Ceftriaxone >TID 40 mg IV solumedrol >QID levalbuterol/ipratropium nebs >Incentive spirometry, flutter therapy >PRN O2 to keep SpO2 between 89-92% >BID Guaifenesin -Continue home breathing treatments -Will obtain sputum culture w/gram stain -Continue home Lovenox for DVT PPX -HH/DII diet with 2gm sodium and 1800 mL fluid restrictions -AM CBC, BMP, mag (2) COPD exacerbation: Plan: -See acute on chronic hypoxic respiratory failure (3) Hypokalemia: Plan: -Noted to be 3.3 in the ED -Likely due to poor PO intake and diuretic use -Mag is WNL -Will give 40 mg PO KCL on admission -Monitor am electrolytes (4) Diabetes: Plan: -Hold metformin -Monitor BSG ACHS goal is 110-160 -Will continue home lantus but at 30 units BID -CF of 50 ACHS -Pharmacy glycemic consult placed - (5) Opiate dependence: Plan: -Continue Buprenorphine (6) Tobacco abuse: Plan: -Continue to stress importance of smoking cessation -Declines need for nicotine patch/gum (7) Chronic anticoagulation: Plan: -Conitue lovenox Plan The patient was discussed with Dr. Aguilar at the time of the exam History of Present Illness Chief Complaint: Progressive SOB, swelling Primary Care Provider: Radha Barboza Janae Monzon is 63yo female with multiple medical comorbidities to include COPD on supplemental O2 2L NC HS, HFpEF, DM, prior PE on Lovenox who presented to the [facility] ED on 06/30/23 with complaints of progressive swelling in the BL LE's and SOB. She was noted to be tachycardic with HR of 103, respirations of 26, and was noted to be hypoxic on RA at 84%. Labs were significant for a leukocytosis of 14 with neutrophil predominance of 10, bicarb of 38, chloride of 89, potassium of 3.3, and influenza/RSV/Covid19 negative. Prior to admission the patient was given an ipratropium neb, levalbuterol neb, 40 mg IV methylprednisolone. At the time of the exam the patient was sitting in bed in no acute distress, currently saturating at 95% on 4L NC. I turned her O2 down to 2L NC and she remained stable. She states that she has been having progressive SOB, cough, wheezing, and LE swelling over the past week. She has been using her breathing treatments and diuretics as prescribed without improvement. She has been using 2L NC at all times during the last week due to her symptoms. When asked, she is still smoking approximately 3 cigarettes daily. I stressed the importance of complete smoking cessation as she was reluctant to accept that smoking 3 cigarettes daily could be causing this much respiratory compromise. She denies recent fever, chills, chest pain, hemoptysis, increased sputum production, abd pain, vomiting, dysuria, hematuria, melena, diarrhea, and recent trauma. She is a full code and would want her sons to make medical decisions for her if she cannot make them herself. Please refer to Dr. Aguilar's attestation for any changes to the treatment plan Allergies Allergy/AdvReac Type Severity Reaction Status Date / Time codeine Allergy Severe Anaphylaxis Verified 06/30/23 19:49 Iodinated Contrast Media Allergy Severe Anaphylaxis Verified 06/30/23 19:49 shellfish derived Allergy Severe Anaphylaxis Verified 06/30/23 19:49 tramadol Allergy Intermediate ITCHINESS Verified 06/30/23 19:49 iohexol Allergy Unknown CAN'T Verified 06/30/23 19:49 REMEMBER diphenhydramine AdvReac Severe Anxiety Verified 06/30/23 19:49 [From Benadryl] montelukast [From Singulair] AdvReac Intermediate Anxiety Verified 06/30/23 19:49 promethazine AdvReac Intermediate Anxiety Verified 06/30/23 19:49 Home Medications Medication Instructions Recorded Confirmed Type buprenorphine 8 mg-naloxone 2 mg 1 film sublingual BID 05/14/22 06/30/23 History sublingual film nystatin 100,000 unit/gram topical 1 applic topical BID PRN UNDER 05/14/22 06/30/23 History powder BREASTS NEEDED. ondansetron HCl 4 mg tablet 4 mg PO Q8H PRN NAUSEA/VOMITING 05/14/22 06/30/23 History quetiapine 200 mg tablet 200 mg PO HS 05/14/22 06/30/23 History insulin glargine 100 unit/mL (3 60 unit subcut QAM 06/21/22 06/30/23 History mL) subcutaneous pen ipratropium bromide 0.02 % 3 ml continuous nebulization QID 01/16/23 06/30/23 History solution for inhalation levalbuterol HCl 1.25 mg/3 mL 1.25 mg inhalation TID PRN 01/16/23 06/30/23 History solution for nebulization Shortness Of Breath Or Wheezing alprazolam 0.5 mg tablet 0.5 mg PO BID #14 tabs 01/19/23 06/30/23 Rx bumetanide 2 mg tablet 4 mg PO BID 03/02/23 06/30/23 History enoxaparin 150 mg/mL subcutaneous 150 mg subcut QAM 05/07/23 06/30/23 History syringe fluticasone fur. 200 mcg-umeclid 1 ea inhalation QAM 05/07/23 06/30/23 History 62.5 mcg-vilant 25 mcg inhalat.powder (Trelegy Ellipta) insulin aspart U-100 100 unit/mL 10 unit subcut AC 05/07/23 06/30/23 History (3 mL) subcutaneous pen (Novolog FlexPen U-100 Insulin aspart) levalbuterol tartrate 45 2 puff inhalation Q4 PRN WHEEZE 05/07/23 06/30/23 History mcg/actuation aerosol inhaler metformin 500 mg tablet,extended 500 mg PO DAILY 05/07/23 06/30/23 History release 24 hr Past Med/Surg History Medical History (Updated 07/01/23 @ 12:15 by Maurilio Herndon MD) Chronic anticoagulation Tobacco abuse History of pulmonary embolism Diabetes Obesity hypoventilation syndrome Acute heart failure with preserved ejection fraction (HFpEF) Opiate dependence Asthma COPD (chronic obstructive pulmonary disease) Multiple myeloma Surgical History No pertinent past surgical history Social History Smoking Status: Current every day smoker Tobacco Type: Cigarettes Cigarettes Per Day: 3 cigarettes/day; Second Hand Exposure: No; Do You Dip or Chew Tobacco: No; Hx Alcohol Use: No Hx Substance Use: No Preferred Language: Spanish Communication Ability: Effective Sunglass Clip Attacher Required: No Beliefs That Will Affect Care: None Current Living Situation: Homeless Current Living Situation Comment: stated to er that she is basically homeless Other Information That Helps Us Care for You: No Feels Safe at Home: Yes Assistive Devices: Oxygen - at Night Physical Exam Physical Exam: Physical Exam: General: In no acute distress, older than stated age, chronically ill appearing, obese HEENT: Normocephalic, atraumatic, no scleral icterus, pupils around round, symmetrical, and reactive to light, no JVD, moist mucus membranes, trachea midline, no thyromegaly Chest/Pulm: No respiratory distress, symmetrical chest expansion, patient not moving much air on exam but does have scattered expiratory wheezing throughout Cardiac: RRR, no murmurs noted Abdomen: Negative for ascites and bruising, normoactive bowel sounds, soft, non-tender to palpation throughout Musculoskeletal: Symmetrical and without signs of acute trauma, upper and lower extremities with full ROM, no atrophy, spasticity, or flaccidity Extremities: Radial, dorsalis pedis, and posterior tibial pulses are intact and symmetrical, non-pitting edema noted in the BL LE's Skin: Warm, dry, no rashes , lesions, or scars noted Neuro: Alert and oriented to person, place, month, year, and president, no focal defects, no tremors noted Psych: No acute distress, calm and cooperative during the exam Results & Data Results & Data Vital Signs (Past 12 Hours) Vital Signs Temp Pulse Pulse Resp BP BP Pulse Ox 06/30/23 20:48 36.7 C 89 20 134/84 94 06/30/23 18:32 96 H 06/30/23 17:59 94 06/30/23 17:59 98 H 22 113/60 94 06/30/23 17:34 93 06/30/23 17:28 36.8 C 103 H 26 H 111/82 84 L O2 Del Method O2 Flow Rate 06/30/23 20:48 Nasal Cannula 4 06/30/23 18:32 06/30/23 17:59 Nasal Cannula 4 06/30/23 17:59 Nasal Cannula 4 06/30/23 17:34 Nasal Cannula 4 06/30/23 17:28 Room Air Laboratory Results Abnormal lab results 06/30/23 Range/Units 18:00 WBC 14.49 H (4.8-10.8) K/ul RBC 5.77 H (4.20-5.40) M/uL MCV 78.7 L (80.0-100.0) fL Neut # (Auto) 10.43 H (1.40-6.50) K/uL [place] # (Auto) 0.63 H (0.11-0.59) K/uL Potassium 3.3 L (3.5-5.1) mmol/L Chloride 89 L (98-107) mmol/L Carbon Dioxide 38 H (21-32) mmol/L BUN 30 H (6-23) mg/dl BUN/Creatinine Ratio 28.3 H (10-20) Glucose 237 H (70-99(Fasting)) mg/dl Alkaline Phosphatase 126 H (34-104) U/L Diagnostic Findings Chest X-Ray 06/30/23 17:31 XR chest 1V portable HISTORY: 63 years-old Female Dyspnea acute shortness of breath COMPARISON: 05/31/2023 TECHNIQUE: PA view the chest FINDINGS: Cardiac silhouette is mildly enlarged. Mild subsegmental bibasilar atelectasis. Chronic deformity of the anterior right fourth rib. Of the thorax, pleural effusion or lobar airspace consolidation. Perivascular congestion. Cholecystectomy. IMPRESSION: 1. Cardiomegaly with pulmonary vascular congestion. 2. Mild bibasilar atelectasis. ACT 112: Negative or not required by law. The above report was generated using voice recognition software. It may contain grammatical, syntax or spelling errors. Electronically signed by: Avi Leon M.D. 06/30/2023 5:42 PM ECG Additional Comments: Poor data quality, interpretation may be adversely affected Sinus tachycardia Low voltage QRS Borderline ECG When compared with ECG of 31-MAY-2023 18:53, No significant change was found Code Status & VTE Plan Code Status Full code VTE Prophylaxis Plan VTE Prophylaxis will be ordered: Yes Supervising Physician Co-Signing Physician Notes Attending addendum: I have physically seen this patient, have supervised the ZACHARIAH's activities, and agree with the H&P unless as otherwise noted. Assessment and Plan: Acute on chronic respiratory failure with hypoxia/COPD exacerbation- Admit to med telemetry Target pulse ox is 92% Presently on nasal cannula 2 L Received Solu-Medrol 40 mg IV, leave albuterol and ipratropium nebulizers while in the ED Admitted on the following: Azithromycin and ceftriaxone IV Solu-Medrol 40 mg IV every 8 hours Xopenex/Atrovent nebs 4 times daily and every 2 hours as needed Incentive spirometry and flutter therapy Guaifenesin extended release 12 mg p.o. twice daily Follow sputum culture and Gram stain Smoking cessation counseling Diabetes mellitus- Hold metformin Placed on Accu-Cheks with NovoLog SSI Continue home Lantus 30 units subcu twice daily Pharmacy glycemic consult Opiate dependence- Continue buprenorphine Remaining orders and notations as noted PG Care Time/CCT Total # of Minutes Spent Total Time Spent with Patient: Total time spent is greater than 50% in coordination of care (as documented) at patient's floor/unit and/or counseling patient: [place] [address] INT INP/OBS CARE 3/75MIN Patient Type Established Medical Decision Making High Complexity Diagnoses Acute on chronic respiratory failure with hypoxia J96.21 COPD exacerbation J44.1 Hypokalemia E87.6 Diabetes E11.9 Opiate dependence F11.20 Tobacco abuse Z72.0 Chronic anticoagulation Z79.01
[2023-06-30] MEDS: POTASSIUM CHLORIDE CRTAB 20 MEQ TABCR PO STA (21:14)
[2023-06-30] MEDS ORDERED: PHARMACY GLYCEMIC MGMT CONSULT PRN (21:27)
[2023-06-30] MEDS ORDERED: GLUCOSE 10 TAB/TUBE PO PRN (21:27)
[2023-06-30] MEDS ORDERED: CARBOHYDRATES FOR HYPOGLYCEMIA PO PRN (21:27)
[2023-06-30] MEDS ORDERED: GLUCAGON FOR INJ 1 MG VIAL SQ PRN (21:27)
[2023-06-30] MEDS ORDERED: GLUCOSE 40% GEL 15 GM TUBE PO PRN (21:27)
[2023-06-30] MEDS ORDERED: DEXTROSE 50% 50 ML SYRINGE IV PRN (21:27)
--- NOTE | 2023-06-30 21:44 | Pharmacy Report ---
Pharmacy Glycemic Short Note 2 - Date of Service June 30, 2023 - Glycemic Short BSG Results (Last 24 hours): 06/30/23 18:00 Glucose 237 H OUTPATIENT ANTIDIABETIC REGIMEN: * Lantus 60 units SC AM * Novolog 10 units SC AC * Metformin 500 mg PO Daily * HbA1c: 10.5% (05/08/23) ASSESSMENT: * 63 yo F admitted on 06/30/23 secondary to shortness of breath. Pharmacy has been consulted to assist with inpatient glycemic management. Patient is a Type 2 diabetic as an outpatient. Please refer to outpatient regimen and most recent HbA1c above. * Ordered a T2DM diet. Methylprednisolone 40 mg IV given once in the ED. No ongoing orders for now. Patient's BSG was 237 mg/dL in ED. Did receive 60 units of basal prior to admission as well as 10 units of meal time insulin with breakfast and lunch today. * Will order Novolog based on previous admission data. Adding overnight checks for first night. Additional basal dose this PM to account for steroids. Continue with home dose in AM. PLAN FOR INPATIENT GLYCEMIC CONTROL: * Hold outpatient oral diabetes medications * Basal insulin * Lantus 60 units SC AM * Lantus 20 units SC PM * Bolus insulin * NovoLog per scale ACHS or Q6hrs while NPO * Goal Range: Low 110 mg/dL - High 140 mg/dL * Correction Factor: 12 mg/dL/unit * Nutritional / Prandial insulin per carb ratio of 1 unit per 4 grams CHO consumed
[2023-06-30] MEDS: ALPRAZolam 0.5 MG TABLET PO STA (21:56)
[2023-06-30] MEDS: INSULIN ASPART PER UNIT CHARGE SC SCH (22:18)
[2023-06-30] MEDS: LANTUS PER UNIT CHARGE SQ SCH (22:18)
[2023-06-30] MEDS: guaiFENesin 600 MG TABCR PO SCH (22:19)
[2023-06-30] MEDS: cefTRIAXone SODIUM 2,000 MG in DEXTROSE 5 % MINI-B 50 ML IV STA (22:30)
[2023-06-30] MEDS: AZITHROMYCIN 500 MG in DEXTROSE 5% 250 ML IV STA (22:32)
[2023-07-01] MEDS: LEVALBUTEROL HCL 0.63 MG/3 ML NEB NEB SCH (00:18)
[2023-07-01] MEDS: IPRATROPIUM BROMIDE NEB SOLN 0.02% 0.5MG/2.5ML VIAL INH SCH (00:18)
[2023-07-01] MEDS: INSULIN ASPART PER UNIT CHARGE SC SCH (00:19)
[2023-07-01] MEDS ORDERED: XOPENEX/ATROVENT 0.63mg/0.5MG NEB COMBO NEB SCH (01:00)
[2023-07-01] MEDS: QUEtiapine FUMARATE 200 MG TAB PO SCH (02:23)
[2023-07-01] MEDS: BUPRENORPHINE/NALOXONE 8/2 MG TAB SL SCH (02:23)
[2023-07-01] MEDS: ALPRAZolam 0.5 MG TABLET PO SCH ×2 (02:23→14:03)
[2023-07-01 05:04] LABS: Basophils # (auto) 0.03 K/uL (0.00-0.20); Basophils % (auto) 0.3 %; Hematocrit (blood only) 45.7 % (37.0-47.0); Hemoglobin 14.5 g/dl (12.0-16.0); Immature Granulocytes # (auto) 0.05 K/uL (0.01-0.20); Immature Granulocytes % (auto) 0.5 %; Lymphocytes # (auto) 1.43 K/uL (1.20-3.40); Lymphocytes % (auto) 13.9 %; Mean Corpuscular Hemoglobin 25.7 pg (25.0-34.0); Mean Corpuscular Hgb Conc 31.7 g/dL (32.0-36.0); Mean Platelet Volume 9.7 fL (9.4-12.4); Monocytes # (auto) 0.09 K/uL (0.11-0.59); Monocytes % (auto) 0.9 %; Neutrophils # (auto) 8.66 K/uL (1.40-6.50); Neutrophils % (auto) 84.4 %; Platelet Count 330 K/uL (130-400); RDW Coefficient of Variation 14.6 % (11.5-14.5); RDW Standard Deviation 42.3 fL (36.4-46.3); Red Blood Count 5.64 M/uL (4.20-5.40); White Blood Count 10.26 K/ul (4.8-10.8)
[2023-07-01 05:14] LABS: Calcium 9.2 mg/dl (8.6-10.3); Est GFR (African American) 69.9 ml/min; Est GFR (Non-African American) 60.3 ml/min; Magnesium 2.1 mg/dl (1.7-2.4); Potassium 3.5 mmol/L (3.5-5.1)
[2023-07-01] MEDS: methylPREDNISolone 40 MG in SYRINGE 0 ML IV SCH (05:14)
[2023-07-01 05:25] LABS: Prothrombin Time 10.7 Seconds (9.0-12.0)
--- NOTE | 2023-07-01 07:56 | Electrocardiogram Report ---
Test Reason : Blood Pressure : / mmHG Vent. Rate : 103 BPM Atrial Rate : 103 BPM P-R Int : 172 ms QRS Dur : 072 ms QT Int : 356 ms P-R-T Axes : 047 021 064 degrees QTc Int : 466 ms Poor data quality, interpretation may be adversely affected Sinus tachycardia Low voltage QRS Borderline ECG When compared with ECG of 31-MAY-2023 18:53, No significant change was found Confirmed by Reagan Caraballo ([id number]) on 07/01/2023 7:56:15 AM Referred By: Radha Barboza Confirmed By:Reagan Caraballo
--- OUTSIDE RECORDS SUMMARY | 2023-07-01 08:11 | External Medical Summary | Continuity of Care Document ---
Author Name Unknown Organization [facility] [address] [place] [id number] Care Team Providers [employer] Name Role Phone Radha Barboza Primary Care Physician [phone] Encounter [facility] [id number] Date(s): 06/24/23 - 06/24/23 [facility] [address] [facility] [address] [facility] [address] [facility] [address] [place] [address] [phone] Encounter Diagnosis Body mass index [BMI] 38.0-38.9, adult(Discharge Diagnosis) - 06/24/23 Hypokalemia(Discharge Diagnosis) - 06/24/23 Discharge Disposition: Home or Self Care Attending Physician: ELENA Barboza Kimberly A Allergies, Adverse Reactions, Alerts Substance Reaction Severity Status codeine Active iodine topical Active Phenergan Itchy Rash Moderate Active metFORMIN Angioedema Active shellfish Active Benedryl Allergy Sinus Activ e oral contrast dye SOB - Shortness of breath Active Immunizations Given and Recorded Vaccine Date Status Refusal Reason SARS-CoV-2 (COVID-19) mRNA BNT-162b2 vax 1 04/06/21 Recorded SARS-CoV-2 (COVID-19) mRNA BNT-162b2 vax 2 09/02/20 Recorded SARS-CoV-2 (COVID-19) mRNA BNT-162b2 vax 3 08/08/20 Recorded 1Result Comment: 2023-03-11: Historical information-source unspecified 2Result Comment: 2023-03-11: Historical information-source unspecified 3Result Comment: 2023-03-11: Historical information-source unspecified Medications ALPRAZolam 0.5 mg oral tablet Start: 06/24/23 9:04:00 EST, 1 tab, PO, bid, Disp# 90 tab, Refills: 2, Make take an extra tablet for acute panic attacks. Max 3/day, PRN: as needed for anxiety, [id number] Start Date: 06/24/23 Status: Ordered bumetanide 2 mg oral tablet Start: 03/09/23 22:51:00 EST, See Instructions, Disp# 360 tab, Refills: 3, TAKE 2 TABLETS BY MOUTH IN THE MORNING AND 2 TABLET AT LUNCHTIME, [id number] Start Date: 03/09/23 Status: Ordered buprenorphine-naloxone 8 mg-2 mg sublingual film Start: 06/04/23 16:25:00 EST, 1 patch, SL, bid, Disp# 60 patch, Refills: 0, Pharmacy: [id number] Start Date: 06/04/23 Stop Date: 07/04/23 Status: Ordered DEXCOM G6 SENSOR Start: 06/26/23 9:55:00 EST, DEXCOM G6 SENSOR, See Instructions, Disp# 3 unknown unit, Refills: 1, USE DIRECTED BY MD TO TEST GLUCOSE 4-5 TIMES A DAY, Pharmacy [id number] Start Date: 06/26/23 Status: Ordered Dexcom G6 Sensor Kit Start: 06/24/23 9:01:00 EST, See Instructions, Disp# 1 kit, Refills: 5, Check BS up to three times daily, Note to Pharmacy: Uncontrolled DM2 (E11.65), Pharmacy: [facility]acy #[id number] Start Date: 06/24/23 Status: Ordered enoxaparin 150 mg/mL injectable solution Start: 06/24/23 9:03:00 EST, 1 mL, subQ, Daily, Disp# 30 mL, Refills: 11, Pharmacy: [facility]acy #[id number] Start Date: 06/24/23 Status: Ordered FreeStyle (28G) Lancets Start: 06/24/23 9:10:00 EST, See Instructions, Disp# 100 each, Refills: 0, check blood glucose 3x per day and as needed for concerns of hypo or hyperglycemia, Note to Pharmacy: Dx: E11.65, [id number] Start Date: 06/24/23 Status: Ordered Lantus Solostar Pen Start: 09/25/14 [...] ac, Disp# 15 mL, Refills: 5, Pharmacy: [facility]acy #[id number] Start Date: 02/17/23 Status: Ordered ondansetron 4 mg oral tablet, disintegrating Start: 03/11/23 12:29:00 EST, 1 tab, PO, q8h, Disp# 30 tab, Refills: 1, PRN: as needed for nausea/vomiting, Pharmacy: [facility]/pharmacy #[id number] Start Date: 03/11/23 Status: Ordered Potassium Chloride (Eqv-K-Tab) 20 mEq oral tablet, extended release Start: 06/19/23 14:47:00 EST, 1 tab, PO, tid, Disp# 90 tab, Refills: 3, Pharmacy: [facility]/pharmacy #[id number] Start Date: 06/19/23 Stop Date: 10/17/23 Status: Ordered predniSONE 20 mg oral tablet Start: 06/19/23 13:53:00 EST, 1 tab, PO, Daily Start Date: 06/19/23 Status: Ordered Pulmicort Flexhaler Start: 06/19/23 13:53:00 EST Start Date: 06/19/23 Status: Ordered QUEtiapine 200 mg oral tablet Start: 06/22/23 17:20:00 EST, 1 tab, PO, Daily, Disp# 90 tab, Refills: 3, Pharmacy: [facility]/pharmacy #[id number] Start Date: 06/22/23 Status: Ordered Trelegy Ellipta 200 mcg-62.5 mcg-25 mcg/inh inhalation powder Start: 07/08/22 11:13:00 EDT Start Date: 07/08/22 Status: Ordered Zaroxolyn 2.5 mg oral tablet Start: 06/24/23 9:06:00 EST, See Instructions, Disp# 15 tab, Refills: 1, 1 tab QOD, Pharmacy: [facility] #[id number] Start Date: 06/24/23 Status: Ordered Mental Status 06/24/23 Barriers to Learning one year None evide nt Mandatory Health Literacy Documentation Yes Health Literacy Communication Barriers N ever Primary Language Sinhala Problem List Condition Confirmation Course Effective Dates Status Health St atus Informant COPD with exacerbation Confirmed Active Anxiety Confirmed Active Cataract Confirmed Active Chalazion of right upper eyelid Confirmed Active Chronic eczema Confirmed Active Chronic low back pain Confirmed Active Congestive heart failure Confirmed Active Diabetes Confirmed Active Shortness of breath Confirmed Active SOB (shortness of breath) Confirmed Active Lower extremity edema Confirmed Active History of pulmonary embolus (PE) Confirmed Active History of ovarian cancer Confirmed Active Insomnia Confirmed Active Plasma cell myeloma Confirmed Active Multiple myeloma Confirmed Active Chemotherapy-induce d nausea Confirmed Active Opioid use disorder in remission Confirmed Active Hospital discharge follow-up Confirmed Active Chronic prescription opiate use Confirmed Active Seasonal allergies Confirmed Active Tobacco user Confirmed Active Weight disorder Confirmed Active Diagnosis Diagnosis Type Effective Dates Health Status Clinical Service Informant Body mass index [BMI] 38.0-38.9, adult Discharge Diagnosis 06/24/23 Non-Specified Hypokalemia Discharge Diagnosis 06/24/23 Non-Specified Procedures Procedure Date Related Diagnosis Body Site Status Bone marrow biopsy 2013 Comple ganesh Vital Signs Most recent to oldest [Reference Range]: 1 Height 157.8 cm (06/24/23 8:09 AM) Patient Weight 96 kg (06/24/23 8:09 AM) Body Mass Index 38.55 kg/m2 (06/24/23 8:09 AM) Heart Rate 99 bpm (06/24/23 8:09 AM) Respiratory Rate 17 br/min (06/24/23 8:09 AM) Blood Pressure 136/72mmHg (06/24/23 8:09 AM) Social History Social History Type Response Smoking Status Current [facility] Sex Female Patient Care team information Care Team Personnel Name: ELENA Barboza Kimberly A Position: Physician Asst Exmpt - Family Med Member Role: Primary Care Provider Address: Address: [address] [facility] [address] [place] [id number] Name: MARGARET Dunn Jo Ann M Position: Nurse Pract - Hem/Onc Member Role: Lifetime Relationship Address: Address: [address] [place] [id number] Care Team Related Persons Name: MO SAMUEL Address: [facility]
--- OUTSIDE RECORDS SUMMARY | 2023-07-01 08:11 | External Medical Summary | Continuity of Care Document ---
Author Name Unknown Organization [place] [id number] [address] [place] [address] [id number] Care Team Providers Care Manager Of Purchasing Name Role Phone JabariRadha Primary Care Physician [phone] [id number] Date(s): 06/04/23 - 06/04/23 [facility] 1849 [facility] 207 [facility] [address] [address] [phone] Encounter Diagnosis COPD with exacerbation(Discharge Diagnosis) - 06/04/23 Chronic prescription opiate use(Discharge Diagnosis) - 06/04/23 Discharge Disposition: Home or Self Care Attending Physician: DO Gracia Gretchen Elizabeth Allergies, Adverse Reactions, Alerts Substance Reaction Severity [...] KAA, PRN: as needed for anxiety, Pharmacy: [facility]/pharmacy #[id number] Start Date: 02/17/23 Status: Ordered bumetanide 2 mg oral tablet Start: 03/09/23 22:51:00 EST, See Instructions, Disp# 360 tab, Refills: 3, TAKE 2 TABLETS BY MOUTH IN THE MORNING AND 2 TABLET AT LUNCHTIME, [id number] Start Date: 03/09/23 Status: Ordered buprenorphine-naloxone 8 mg-2 mg sublingual film Start: 06/04/23 16:25:00 EST, 1 patch, SL, bid, Disp# 60 patch, Refills: 0, Pharmacy: [facility]/pharmacy #[id number] Start Date: 06/04/23 Stop Date: 07/04/23 Status: Ordered enoxaparin 150 mg/mL injectable solution Start: 06/01/23 12:02:00 EST, 1 mL, subQ, Daily, Disp# 30 mL, Refills: 1, [id number] Start Date: 06/01/23 Stop Date: 07/31/23 Status: Ordered Lantus Solostar Pen Start: 09/25/14 10:14:00, 55 unit =, subQ, Daily Start Date: 09/25/14 Status: Ordered levalbuterol CFC free 45 mcg/inh inhalation aerosol Start: 07/08/22 11:13:00 EDT, 1 puff, inhaled, q4h, PRN: as needed for wheezing Start Date: 07/08/22 Status: Ordered MetFORMIN (Eqv-Glucophage XR) 500 mg oral tablet, extended release Start: 05/05/23 15:05:00 EST, 1 tab, PO, Daily, Disp# 30 tab, Refills: 5, Pharmacy: [facility]/pharmacy #[id number] Start Date: 05/05/23 Status: Ordered NovoLOG FlexPen 100 units/mL injectable solution Start: 02/17/23 15:10:00 EDT, 10 unit =, subQ, ac, Disp# 15 mL, Refills: 5, Pharmacy: [facility]/pharmacy #[id number] Start Date: 02/17/23 Status: Ordered ondansetron 4 mg oral tablet, disintegrating Start: 03/11/23 12:29:00 EST, 1 tab, PO, q8h, Disp# 30 tab, Refills: 1, PRN: as needed for nausea/vomiting, Pharmacy: [facility]/pharmacy #[id number] Start Date: 03/11/23 Status: Ordered Potassium Chloride (Eqv-K-Tab) 20 mEq oral tablet, extended release Start: 03/31/23 16:05:00 EST, 1 tab, PO, bid, Disp# 180 tab, Refills: 0, Pharmacy: [facility]/pharmacy #[id number] Start Date: 03/31/23 Status: Ordered Pulmicort Respules 0.25 mg/2 mL inhalation suspension Start: 06/04/23 15:50:00 EST, 8 mL, NEB, bid, Disp# 60 mL, Refills: 2, Pharmacy: [facility]/pharmacy #[id number] Start Date: 06/04/23 Status: Ordered QUEtiapine 200 mg oral tablet Start: 05/05/23 22:12:00 EST, 1 tab, PO, Daily, Disp# 30 tab, Refills: 3, [id number] Start Date: 05/05/23 Stop Date: 09/02/23 Status: Ordered spironolactone 25 mg oral tablet Start: 05/19/23 9:52:00 EST, 2 tab, PO, Daily, Disp# 60 tab, Refills: 3, Begin with 1 tablet in AM daily. If edema does not improve, please increase to twice daily, [id number] Start Date: 05/19/23 Stop Date: 09/16/23 Status: Ordered Trelegy Ellipta 200 mcg-62.5 mcg-25 mcg/inh inhalation powder Start: 07/08/22 11:13:00 EDT Start Date: 07/08/22 Status: Ordered Mental Status 06/04/23 Barriers to Learning one year None evide nt Mandatory Health Literacy Documentation Yes Health Literacy Communication Barriers N ever Primary Language Mauritanian Problem List Condition Confirmation Course Effective Dates [...] Effective Dates Health Status Clinical Service Informant COPD with exacerbation Discharge Diagnosis 06/04/23 Chronic prescription opiate use Discharge Diagnosis 06/04/23 Procedures Procedure Date Related Diagnosis Body Site Status Bone marrow biopsy 2013 Comple ganesh Vital Signs Most recent to oldest [Reference Range]: 1 Patient Weight 91.9 kg (06/04/23 2:39 PM) Temperature [36.5-37.9 DegC] 36.8 DegC (06/04/23 2:39 PM) Heart Rate 99 bpm (06/04/23 2:39 PM) Respiratory Rate 18 br/min (06/04/23 2:39 PM) Blood Pressure 122/80mmHg (06/04/23 2:39 PM) Cuff Pulse Pressure 42 mmHg (06/04/23 2:39 PM) Social History Social History Type Response [facility] Sex Female Patient Care team information Care Team Personnel Name: ELENA Barboza, Radha Bhatia Position: Physician Asst Exmpt - Family Med Member Role: Primary Care Provider Address: Address: [address] [place] [id number] Name: MARGARET Dunn Jo Ann M Position: Nurse Pract - Hem/Onc Member Role: Lifetime Relationship Address: Address: [address] [place] [address] [place] Care Team Related Persons Name: MO SAMUEL Address: [facility]
--- OUTSIDE RECORDS SUMMARY | 2023-07-01 08:11 | External Medical Summary | Continuity of Care Document ---
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 Hypokalemia(Discharge Diagnosis) - 06/19/23 Discharge Disposition: Home or Self Care Attending Physician: ELENA Barboza Kimberly A Allergies, Adverse Reactions, Alerts Substance Reaction Severity Status codeine Active iodine topical Active Phenergan Itchy Rash Moderate Active metFORMIN Angioedema Active oral contrast dye SOB - Shortness of breath Active shellfish Active Benedryl Allergy Sinus Activ e Immunizations Given and Recorded Vaccine Date Status Refusal Reason SARS-CoV-2 (COVID-19) mRNA BNT-162b2 vax 1 04/06/21 Recorded SARS-CoV-2 (COVID-19) mRNA BNT-162b2 vax 2 09/02/20 Recorded SARS-CoV-2 (COVID-19) mRNA BNT-162b2 vax 3 08/08/20 Recorded 1Result Comment: 2023-03-11: Historical information-source unspecified 2Result Comment: 2023-03-11: Historical information-source unspecified 3Result Comment: 2023-03-11: Historical information-source unspecified Medications ALPRAZolam 0.5 mg oral tablet Start: 06/19/23 14:49:00 EST, 1 tab, PO, bid, Disp# 60 tab, Refills: 0, Note to Pharmacy: Please void previous prescriptions of Alprazolam. KAA, PRN: as needed for anxiety, [id number] Start Date: 06/19/23 Status: Ordered bumetanide 2 mg oral tablet Start: 03/09/23 22:51:00 EST, See Instructions, Disp# 360 tab, Refills: 3, TAKE 2 TABLETS BY MOUTH IN THE MORNING AND 2 TABLET AT LUNCHTIME, [id number] Start Date: 03/09/23 Status: Ordered buprenorphine-naloxone 8 mg-2 mg sublingual film Start: 06/04/23 16:25:00 EST, 1 patch, SL, bid, Disp# 60 patch, Refills: 0, Pharmacy: [facility] #[id number] Start Date: 06/04/23 Stop Date: 07/04/23 Status: Ordered enoxaparin 150 mg/mL injectable solution Start: 06/01/23 12:02:00 EST, 1 mL, subQ, Daily, Disp# 30 mL, Refills: 1, Pharmacy: [facility] #[id number] Start Date: 06/01/23 Stop Date: 07/31/23 Status: Ordered FreeStyle Lite Test Strips 100 ct Start: 06/19/23 14:51:00 EST, See Instructions, Disp# 100 each, Refills: 3, check blood glucose 1x per day and as needed for concerns of hypo or hyperglycemia, Note to Pharmacy: E11.65, [id number] Start Date: 06/19/23 Status: Ordered Lantus Solostar Pen Start: 09/25/14 [...] mL, Refills: 5, [id number] Start Date: 02/17/23 Status: Ordered ondansetron 4 mg oral tablet, disintegrating Start: 03/11/23 12:29:00 EST, 1 tab, PO, q8h, Disp# 30 tab, Refills: 1, PRN: as needed for nausea/vomiting, Pharmacy: [facility]/pharmacy #[id number] Start Date: 03/11/23 Status: Ordered Potassium Chloride (Eqv-K-Tab) 20 mEq oral tablet, extended release Start: 06/19/23 14:47:00 EST, 1 tab, PO, tid, Disp# 90 tab, Refills: 3, Pharmacy: [facility]/pharmacy #[id number] Start Date: 06/19/23 Stop Date: 10/17/23 Status: Ordered predniSONE 20 mg oral tablet Start: 06/19/23 13:53:00 EST, 1 tab, PO, Daily Start Date: 06/19/23 Status: Ordered Pulmicort Flexhaler Start: 06/19/23 13:53:00 EST Start Date: 06/19/23 Status: Ordered Pulmicort Respules 0.25 mg/2 mL inhalation suspension Start: 06/04/23 15:50:00 EST, 8 mL, NEB, bid, Disp# 60 mL, Refills: 2, Pharmacy: [facility]/pharmacy #[id number] Start Date: 06/04/23 Status: Ordered QUEtiapine 200 mg oral tablet Start: 05/05/23 22:12:00 EST, 1 tab, PO, Daily, Disp# 30 tab, Refills: 3, Pharmacy: [facility] #[id number] Start Date: 05/05/23 Stop Date: 09/02/23 Status: Ordered Trelegy Ellipta 200 mcg-62.5 mcg-25 mcg/inh inhalation powder Start: 07/08/22 11:13:00 EDT Start Date: 07/08/22 Status: Ordered Zaroxolyn 2.5 mg oral tablet Start: 06/19/23 14:46:00 EST, See Instructions, Disp# 10 tab, Refills: 1, 1 tab twice weekly, Pharmacy: [facility]/pharmacy #[id number] Start Date: 06/19/23 Status: Ordered Mental Status 06/19/23 Barriers to Learning one year None evide nt Mandatory Health Literacy Documentation Yes Health Literacy Communication Barriers N ever Primary Language Maltese Problem List Condition Confirmation Course Effective Dates [...] Effective Dates Health Status Clinical Service Informant Hypokalemia Discharge Diagnosis 06/19/23 Non-Specified COPD with emphysema Discharge Diagnosis 06/19/23 Non-Specified CHF (congestive heart failure) Discharge Diagnosis 06/19/23 Non-Specified Procedures Procedure Date Related Diagnosis Body Site Status Bone marrow biopsy 2013 ganesh Vital Signs Most recent to oldest [Reference Range]: 1 Patient Weight 97.9 kg (06/19/23 2:02 PM) Temperature [36.5-37.9 DegC] 36.7 DegC (06/19/23 2:02 PM) Heart Rate 100 bpm (06/19/23 2:02 PM) Respiratory Rate 17 br/min (06/19/23 2:02 PM) Blood Pressure 138/76mmHg (06/19/23 2:02 PM) Cuff Pulse Pressure 62 mmHg (06/19/23 2:02 PM) BP Location # 1 Left Arm (06/19/23 2:02 PM) Social History Social History Type Response Smoking Status Current every day [facility] smoker Sex Female Patient Care team information Care Team Personnel Name: ELENA Barboza, Radha Bhatia Position: Physician Asst Exmpt - Family Med Member Role: Primary Care Provider Address: Address: [address] [facility] [address] [place] [address] [place] Name: MARGARET Dunn Jo Ann M Position: Nurse Pract - Hem/Onc Member Role: Lifetime Relationship Address: Address: [address] [place] [id number] Care Team Related Persons Name: MO SAMUEL Address: [facility]
[2023-07-01] MEDS ORDERED: NON-FORMULARY MEDICATION (Fluticasone-Umeclidin-Vilanter [Trelegy Ellipta] 200-62.5-25 mcg INH SCH (09:00)
[2023-07-01] MEDS ORDERED: LANTUS PER UNIT CHARGE SQ SCH (09:00)
[2023-07-01] MEDS ORDERED: ALPRAZolam 0.5 MG TABLET PO SCH (09:00)
[2023-07-01] MEDS ORDERED: BUPRENORPHINE/NALOXONE 8/2 MG TAB SL SCH (09:00)
[2023-07-01] MEDS: metFORMIN HCL 500 MG TAB PO SCH (09:11)
[2023-07-01] MEDS: BUMETANIDE 1 MG TAB PO SCH (09:14)
[2023-07-01] MEDS: ENOXAPARIN 150 MG/ML SYR SQ SCH (09:15)
[2023-07-01] MEDS: FLUTICASONE FUROATE 200MCG 14 PUFFS/INHALER INH SCH (09:17)
[2023-07-01] MEDS: UMECLIDINIUM/VILANTEROL 62.5/25MCG 7 PUFFS/INHALER INH SCH (09:18)
[2023-07-01] MEDS: POTASSIUM CHLORIDE CRTAB 20 MEQ TABCR PO SCH (09:18)
[2023-07-01] MEDS: INSULIN HUMAN NPH SC SCH (09:37)
[2023-07-01 11:59] LABS: Appearance Urine Clear (Clear); Bacteria Urine Automated Negative (Negative); Bilirubin Urine Negative (Negative); Blood Urine Negative (Negative); Color Urine Yellow; Epithelial Cell Urine Auto 20-30 /lpf (0-5); Glucose Urine UA 2+ (Negative); Ketones Urine Negative (Negative); Leukocyte Esterase Urine 2+ (Negative); Nitrite Urine Negative (Negative); Protein Urine Negative (Negative); RBC Urine Automated 0-4 /hpf (0-4); Specific Gravity Urine 1.012 (1.000-1.030); Urobilinogen Urine Negative (Negative)
--- NOTE | 2023-07-01 12:17 | Hospitalist Progress Note ---
Date of Service July 01, 2023 Assessment & Plan (1) Pulmonary vascular congestion: Plan: Likely cause of shortness of breath and exacerbation of COPD. Lasix diuresis. Monitor intake and output (2) Acute on chronic respiratory failure with hypoxia: Plan: Treat pulmonary vascular congestion. Supplemental oxygen per nasal cannula to maintain saturation greater than 90%. Wean oxygen down to previous chronic use rate as tolerated. (3) COPD exacerbation: Plan: Treat pulmonary vascular congestion. Parenteral steroids while hospitalized. Nebulizers. (4) Hypokalemia: Plan: Oral replacement therapy. Serial labs (5) Diabetes: Plan: ADA diet. NPH insulin replaces Lantus while on steroid therapy. She states she does not take metformin due to previous allergic reaction. Sliding scale coverage as needed (6) Opiate dependence: Plan: Stable. Continue Buprenorphine (7) Tobacco abuse: Plan: Continue to stress importance of smoking cessation . Declines need for nicotine patch/gum (8) Chronic anticoagulation: Plan: Conitue lovenox Plan Hopeful discharge to home within the next day or 2 Admission and Anticipated Discharge Date Admission Date: June 30, 2023 Subjective Alert and oriented. Chest x-ray shows pulmonary vascular congestion and then this is likely the cause of her shortness of breath. She does not tolerate any fluid overload at all. IV Lasix is ordered along with her usual metolazone. Will schedule Xanax 3 times daily to help with her chronic anxiety. Oral potassium supplementation ordered. NPH insulin replaces Lantus while she is on parenteral steroid therapy for better glucose control. She states she cannot take metformin due to previous allergic reaction. Review of Systems 2 Review of Systems: Constitutional-no fever or chills ENT-no blurred vision, no double vision, no epistaxis, no sore throat Respiratory-shortness of breath. Wheezing. No sputum production. No hemoptysis Cardiac-no palpitations, no chest pain, no syncope GI-no nausea, vomiting, diarrhea, melena, hematochezia -no urinary retention, no urinary incontinence, no dysuria, no hematuria Musculoskeletal-no joint pain, no muscle tenderness Skin-no bruising, no rashes, no pruritus Neuro-no isolated weakness, no paresthesia, no weakness Psych-no depression, no anxiety Physical Exam 2 Physical Exam: General-alert and oriented x3, no fever, no chills HEENT-head atraumatic and normocephalic, pupils equal and reactive to light, extraocular muscles intact Neck-no lymphadenopathy or thyromegaly, trachea midline Chest-diminished breath sounds bilaterally. No rales, wheezing or rhonchi i Cardiac-regular rate and rhythm, normal S1 and S2 Abdomen-normal bowel sounds, nontender, no hepatosplenomegaly Extremities-no cyanosis, clubbing, or edema Neuro-cranial nerves II through XII intact, motor and sensory function within normal limits, strength symmetrical, no focal deficits Psych-normal affect, normal mood Results & Data Results & Data Vital Signs (Past 12 Hours) Vital Signs Temp Pulse Pulse Pulse Resp BP Pulse Ox 07/01/23 11:45 36.5 C 89 14 134/80 92 07/01/23 11:00 07/01/23 07:28 36.6 C 90 20 113/74 92 07/01/23 07:18 90 18 92 07/01/23 07:00 84 07/01/23 02:26 07/01/23 02:26 36.3 C L 84 22 138/84 94 07/01/23 02:14 84 07/01/23 00:18 85 18 92 O2 Del Method O2 Flow Rate 07/01/23 11:45 Nasal Cannula 3 07/01/23 11:00 Room Air 07/01/23 07:28 Nasal Cannula 4 07/01/23 07:18 Nasal Cannula 4 07/01/23 07:00 07/01/23 02:26 Nasal Cannula 4 07/01/23 02:26 Nasal Cannula 4 07/01/23 02:14 07/01/23 00:18 Nasal Cannula 4 Laboratory Results 07/01/23 04:45 07/01/23 04:45 PG Care Time/CCT Total # of Minutes Spent Total Time Spent with Patient: Total time spent is greater than 50% in coordination of care (as documented) at patient's floor/unit and/or counseling patient: Coding Level of Care Code 43725 SUB INP/OBS CARE 3/50MIN Diagnoses Pulmonary vascular congestion R09.89 Acute on chronic respiratory failure with hypoxia J96.21 COPD exacerbation J44.1 Hypokalemia E87.6 Diabetes E11.9 Opiate dependence F11.20 Tobacco abuse Z72.0 Chronic anticoagulation Z79.01
[2023-07-01] MEDS: FUROSEMIDE 40 MG/4 ML VIAL IV SCH (12:27)
[2023-07-01] MEDS: metOLazone 5 MG TABLET PO ONE (12:46)
[2023-07-01] MEDS: cefTRIAXone SODIUM 2,000 MG in DEXTROSE 5 % MINI-B 50 ML IV SCH (20:32)
[2023-07-01] MEDS ORDERED: QUEtiapine FUMARATE 200 MG TAB PO SCH (21:00)
[2023-07-01] MEDS: AZITHROMYCIN 500 MG in DEXTROSE 5% 250 ML IV SCH (21:19)
[2023-07-02 05:12] LABS: BUN Creatinine Ratio 40.6 (10-20); Calcium 9.3 mg/dl (8.6-10.3); Creatinine Clr Calc Pharmacy 64.9 ml/min; Est GFR (African American) 69.1 ml/min; Est GFR (Non-African American) 59.6 ml/min; Potassium 3.3 mmol/L (3.5-5.1)
[2023-07-02 05:16] LABS: Basophils # (auto) 0.06 K/uL (0.00-0.20); Basophils % (auto) 0.3 %; Hematocrit (blood only) 44.1 % (37.0-47.0); Hemoglobin 14.3 g/dl (12.0-16.0); Immature Granulocytes # (auto) 0.18 K/uL (0.01-0.20); Immature Granulocytes % (auto) 0.9 %; Lymphocytes # (auto) 2.17 K/uL (1.20-3.40); Lymphocytes % (auto) 10.6 %; Mean Corpuscular Hgb Conc 32.4 g/dL (32.0-36.0); Monocytes # (auto) 0.52 K/uL (0.11-0.59); Monocytes % (auto) 2.6 %; Neutrophils # (auto) 17.45 K/uL (1.40-6.50); Neutrophils % (auto) 85.6 %; Platelet Count 332 K/uL (130-400); RDW Coefficient of Variation 14.5 % (11.5-14.5); RDW Standard Deviation 41.5 fL (36.4-46.3); Red Blood Count 5.51 M/uL (4.20-5.40); White Blood Count 20.38 K/ul (4.8-10.8)
[2023-07-02] MEDS: metOLazone 5 MG TABLET PO ONE (12:05)
[2023-07-02] MEDS: POTASSIUM CHLORIDE CRTAB 20 MEQ TABCR PO SCH (13:45)
--- NOTE | 2023-07-02 14:47 | Hospitalist Progress Note ---
Date of Service July 02, 2023 Assessment & Plan (1) Acute on chronic respiratory failure with hypoxia: Plan: -Admit to med/tele on pulse oximetry -Currently hemodynamically stable and stable on 2L NC while at rest -At this time the patient's presentation and acute on chronic hypoxic respiratory failure is most consistent with a COPD exacerbation -While the patient has been admitted recently with possible CHF exacerbation, she does not appear volume overloaded on exam, CXR appears stable compared to previous -At this time her ongoing smoking is likely playing a large role on her frequent admissions over the past 6 months -No focal consolidations noted on admission -S/P 40 mg IV solu-medrol, levalbuterol, and ipratropium nebs in the ED -Will treat as a COPD exacerbation for now with the following: >Azithromycin and Ceftriaxone >TID 40 mg IV solumedrol >QID levalbuterol/ipratropium nebs >Incentive spirometry, flutter therapy >PRN O2 to keep SpO2 between 89-92% >BID Guaifenesin -Continue home breathing treatments -Will obtain sputum culture w/gram stain -Continue home Lovenox for DVT PPX -HH/DII diet with 2gm sodium and 1800 mL fluid restrictions -AM CBC, BMP, mag (2) COPD exacerbation: Plan: -See acute on chronic hypoxic respiratory failure (3) Hypokalemia: Plan: -Noted to be 3.3 in the ED -Likely due to poor PO intake and diuretic use -Mag is WNL -Will give 40 mg PO KCL on admission -Monitor am electrolytes (4) Diabetes: Plan: -Hold metformin -Monitor BSG ACHS goal is 110-160 -Will continue home lantus but at 30 units BID -CF of 50 ACHS -Pharmacy glycemic consult placed - (5) Opiate dependence: Plan: -Continue Buprenorphine (6) Tobacco abuse: Plan: -Continue to stress importance of smoking cessation -Declines need for nicotine patch/gum (7) Chronic anticoagulation: Plan: -Conitue lovenox Plan The patient was discussed with Dr. Aguilar at the time of the exam Admission and Anticipated Discharge Date Admission Date: June 30, 2023 Review of Systems Review of Systems: Constitutional-no fever or chills ENT-no blurred vision, no double vision, no epistaxis, no sore throat Respiratory-shortness of breath. Wheezing. No sputum production. No hemoptysis Cardiac-no palpitations, no chest pain, no syncope GI-no nausea, vomiting, diarrhea, melena, hematochezia -no urinary retention, no urinary incontinence, no dysuria, no hematuria Musculoskeletal-no joint pain, no muscle tenderness Skin-no bruising, no rashes, no pruritus Neuro-no isolated weakness, no paresthesia, no weakness Psych-no depression, no anxiety Physical Exam Physical Exam: General-alert and oriented x3, no fever, no chills HEENT-head atraumatic and normocephalic, pupils equal and reactive to light, extraocular muscles intact Neck-no lymphadenopathy or thyromegaly, trachea midline Chest-diminished breath sounds bilaterally. No rales, wheezing or rhonchi i Cardiac-regular rate and rhythm, normal S1 and S2 Abdomen-normal bowel sounds, nontender, no hepatosplenomegaly Extremities-no cyanosis, clubbing, or edema Neuro-cranial nerves II through XII intact, motor and sensory function within normal limits, strength symmetrical, no focal deficits Psych-normal affect, normal mood Results & Data Results & Data Vital Signs (Past 12 Hours) Vital Signs Temp Pulse Pulse Resp BP Pulse Ox O2 Del Method 07/02/23 13:14 103 H 18 95 Room Air 07/02/23 11:29 36.5 C 97 H 16 108/67 93 Room Air 07/02/23 10:00 Room Air 07/02/23 08:02 36.6 C 94 H 18 117/65 94 Room Air 07/02/23 07:58 88 07/02/23 07:17 88 18 91 Room Air 07/02/23 03:53 36.5 C 97 H 18 102/64 92 Room Air PG Care Time/CCT Total # of Minutes Spent Total Time Spent with Patient: Total time spent is greater than 50% in coordination of care (as documented) at patient's floor/unit and/or counseling patient: Coding Diagnoses Acute on chronic respiratory failure with hypoxia J96.21 COPD exacerbation J44.1 Hypokalemia E87.6 Diabetes E11.9 Opiate dependence F11.20 Tobacco abuse Z72.0 Chronic anticoagulation Z79.01
--- NOTE | 2023-07-02 14:55 | Hospitalist Progress Note ---
Date of Service July 02, 2023 Assessment & Plan (1) Acute on chronic respiratory failure with hypoxia: Plan: Resolved. She is now on room air (2) Pulmonary vascular congestion: Plan: Present on admission. Expect resolution with parenteral Lasix diuresis. Monitor intake and output (3) COPD exacerbation: Plan: Improving with treatment of pulmonary vascular congestion. Nebulizer treatments (4) Hypokalemia: Plan: Oral supplementation. Serial labs (5) Diabetes: Plan: ADA diet. Solu-Medrol discontinued due to hypoglycemia. NPH replaces Lantus. Sliding scale coverage (6) Opiate dependence: Plan: Stable. Continue current medical management (7) Tobacco abuse: Plan: Encouraged to stop smoking (8) Chronic anticoagulation: Plan: She uses Lovenox subcutaneously twice daily Plan Hopeful discharge to home soon, within the next day or 2 Admission and Anticipated Discharge Date Admission Date: June 30, 2023 Subjective Alert. No distress. She states her peripheral edema has improved. Urine output is not being monitored unfortunately. Nurses have been informed to watch intake and output closely. Will give her metolazone today which she takes at home on a twice weekly basis Review of Systems 2 Review of Systems: Constitutional-no fever or chills ENT-no blurred vision, no double vision, no epistaxis, no sore throat Respiratory-no cough, no wheezing. Easily short of breath with exertion Cardiac-no palpitations, no chest pain, no syncope GI-no nausea, vomiting, diarrhea, melena, hematochezia -no urinary retention, no urinary incontinence, no dysuria, no hematuria Musculoskeletal-no joint pain, no muscle tenderness Skin-no bruising, no rashes, no pruritus Neuro-no isolated weakness, no paresthesia, no weakness Psych-no depression, no anxiety Physical Exam 2 Physical Exam: General-alert and oriented x3, no fevers, no chills HEENT-head atraumatic and normocephalic, pupils equal and reactive to light, extraocular muscles intact Neck-no lymphadenopathy or thyromegaly, trachea midline Chest-diminished breath sounds bilaterally. No inspiratory rales. No wheezing. Cardiac-regular rate and rhythm, normal S1 and S2 Abdomen-normal bowel sounds, nontender, no hepatosplenomegaly Extremities-edema bilateral distal lower extremities has diminished to 1+ Neuro-cranial nerves II through XII intact, motor and sensory function within normal limits, strength symmetrical, no focal deficits Psych-normal affect, normal mood Results & Data Results & Data Vital Signs (Past 12 Hours) Vital Signs Temp Pulse Pulse Resp BP Pulse Ox O2 Del Method 07/02/23 13:14 103 H 18 95 Room Air 07/02/23 11:29 36.5 C 97 H 16 108/67 93 Room Air 07/02/23 10:00 Room Air 07/02/23 08:02 36.6 C 94 H 18 117/65 94 Room Air 07/02/23 07:58 88 07/02/23 07:17 88 18 91 Room Air 07/02/23 03:53 36.5 C 97 H 18 102/64 92 Room Air Laboratory Results 07/02/23 04:33 07/02/23 04:33 PG Care Time/CCT Total # of Minutes Spent Total Time Spent with Patient: Total time spent is greater than 50% in coordination of care (as documented) at patient's floor/unit and/or counseling patient: Coding Level of Care Code 29945 SUB INP/OBS CARE 3/50MIN Diagnoses Acute on chronic respiratory failure with hypoxia J96.21 Pulmonary vascular congestion R09.89 COPD exacerbation J44.1 Hypokalemia E87.6 Diabetes E11.9 Opiate dependence F11.20 Tobacco abuse Z72.0 Chronic anticoagulation Z79.01
[2023-07-02] MEDS: INSULIN HUMAN NPH SC SCH (17:42)
[2023-07-02] MEDS: guaiFENesin SUGAR FREE 100 MG/5 ML UDC PO PRN (19:28)
[2023-07-02] MEDS: AZITHROMYCIN 250 MG TAB PO SCH (20:50)
[2023-07-02] MEDS ORDERED: POLYETHYLENE (MIRALAX) 17 GM PACK PO PRN (21:48)
[2023-07-03 06:34] LABS: Basophils # (auto) 0.04 K/uL (0.00-0.20); Basophils % (auto) 0.2 %; Eosinophils # (auto) 0.05 K/uL (0.00-0.50); Eosinophils % (auto) 0.3 %; Hematocrit (blood only) 42.7 % (37.0-47.0); Hemoglobin 14.2 g/dl (12.0-16.0); Immature Granulocytes # (auto) 0.09 K/uL (0.01-0.20); Immature Granulocytes % (auto) 0.5 %; Lymphocytes # (auto) 4.34 K/uL (1.20-3.40); Lymphocytes % (auto) 25.6 %; Mean Corpuscular Hemoglobin 26.2 pg (25.0-34.0); Mean Corpuscular Hgb Conc 33.3 g/dL (32.0-36.0); Mean Corpuscular Volume 78.8 fL (80.0-100.0); Monocytes # (auto) 0.98 K/uL (0.11-0.59); Monocytes % (auto) 5.8 %; Neutrophils # (auto) 11.43 K/uL (1.40-6.50); Neutrophils % (auto) 67.6 %; Platelet Count 324 K/uL (130-400); RDW Coefficient of Variation 14.9 % (11.5-14.5); RDW Standard Deviation 42.1 fL (36.4-46.3); Red Blood Count 5.42 M/uL (4.20-5.40); White Blood Count 16.93 K/ul (4.8-10.8)
[2023-07-03 06:46] LABS: BUN Creatinine Ratio 47.2 (10-20); Creatinine Clr Calc Pharmacy 60.5 ml/min; Est GFR (African American) 63.7 ml/min; Potassium 3.4 mmol/L (3.5-5.1)
[2023-07-03] MEDS: LEVALBUTEROL 1.25 MG/3 ML NEB INH PRN (07:37)
--- NOTE | 2023-07-03 12:03 | Discharge Summary ---
Date of Service July 03, 2023 Admission HPI Per Admitting Provider Janae Monzon is 63yo female with multiple medical comorbidities to include COPD on supplemental O2 2L NC HS, HFpEF, DM, prior PE on Lovenox who presented to the [facility] ED on 06/30/23 with complaints of progressive swelling in the BL LE's and SOB. She was noted to be tachycardic with HR of 103, respirations of 26, and was noted to be hypoxic on RA at 84%. Labs were significant for a leukocytosis of 14 with neutrophil predominance of 10, bicarb of 38, chloride of 89, potassium of 3.3, and influenza/RSV/Covid19 negative. Prior to admission the patient was given an ipratropium neb, levalbuterol neb, 40 mg IV methylprednisolone. At the time of the exam the patient was sitting in bed in no acute distress, currently saturating at 95% on 4L NC. I turned her O2 down to 2L NC and she remained stable. She states that she has been having progressive SOB, cough, wheezing, and LE swelling over the past week. She has been using her breathing treatments and diuretics as prescribed without improvement. She has been using 2L NC at all times during the last week due to her symptoms. When asked, she is still smoking approximately 3 cigarettes daily. I stressed the importance of complete smoking cessation as she was reluctant to accept that smoking 3 cigarettes daily could be causing this much respiratory compromise. She denies recent fever, chills, chest pain, hemoptysis, increased sputum production, abd pain, vomiting, dysuria, hematuria, melena, diarrhea, and recent trauma. She is a full code and would want her sons to make medical decisions for her if she cannot make them herself. Please refer to Dr. Aguilar's attestation for any changes to the treatment plan Principal Diagnosis Acute on chronic hypoxic respiratory failure, exacerbation COPD, hypokalemia, suspected acute bronchitis Discharge Exam General-alert and oriented x3, no fevers, no chills HEENT-head atraumatic and normocephalic, pupils equal and reactive to light, extraocular muscles intact Neck-no lymphadenopathy or thyromegaly, trachea midline Chest-diminished breath sounds bilaterally. No inspiratory rales. No wheezing. Midline rhonchi with forced cough Cardiac-regular rate and rhythm, normal S1 and S2 Abdomen-normal bowel sounds, nontender, no hepatosplenomegaly Extremities-edema bilateral distal lower extremities has diminished to 1+ Neuro-cranial nerves II through XII intact, motor and sensory function within normal limits, strength symmetrical, no focal deficits Psych-normal affect, normal mood Discharge Data Allergies Allergy/AdvReac Type Severity Reaction Status Date / Time codeine Allergy Severe Anaphylaxis Verified 06/30/23 19:49 Iodinated Contrast Media Allergy Severe Anaphylaxis Verified 06/30/23 19:49 shellfish derived Allergy Severe Anaphylaxis Verified 06/30/23 19:49 tramadol Allergy Intermediate ITCHINESS Verified 06/30/23 19:49 iohexol Allergy Unknown CAN'T Verified 06/30/23 19:49 REMEMBER diphenhydramine AdvReac Severe Anxiety Verified 06/30/23 19:49 [From Benadryl] montelukast [From Singulair] AdvReac Intermediate Anxiety Verified 06/30/23 19:49 promethazine AdvReac Intermediate Anxiety Verified 06/30/23 19:49 Consultations 06/30/23 21:04 ED Decision to Admit Stat Hospital Course (1) Acute on chronic respiratory failure with hypoxia: Resolved. She is now on room air (2) Pulmonary vascular congestion: Present on admission. Resolved with metolazone and parenteral Lasix diuresis. Metolazone uptitrated to 3 times weekly at the time of discharge. Monitor intake and output (3) COPD exacerbation: Resolved with treatment of pulmonary vascular congestion and bronchitis. Nebulizer treatments (4) Hypokalemia: Oral supplementation. Serial labs (5) Diabetes: ADA diet. Solu-Medrol discontinued due to hypoglycemia. NPH replaces Lantus while hospitalized. Sliding scale coverage (6) Opiate dependence: Stable. Continue current medical management (7) Tobacco abuse: Encouraged to stop smoking (8) Chronic anticoagulation: She uses Lovenox subcutaneously twice daily (9) Acute bronchitis: Improved. Home on oral Levaquin. No sputum for culture Plan Home todayJuly 02 Total Time Total Time Spent Total Time Spent (In Minutes): 45 minutes Discharge Plan Discharge Items Patient Disposition: Home - Self-Care Reason For Visit: COPD EXACERBATION, HYPOKALEMIA Discharge Diagnosis: Acute on chronic hypoxic respiratory failure, acute exacerbation COPD, hypokalemia, acute bronchitis Activity: Resume your previous activity Non-emergency contact: Primary Care Provider Call non-emergency contact if: you have any medication questions and your symptoms worsen Follow-up/Referrals: Radha Barboza PA-C [Primary Care Provider] - Diet: Carb Consistent or DM2 and Heart Healthy Addtl Attending Provider Instructions: Take metolazone 3 times weekly, on Thursday and Thursday. Take Levaquin antibiotic daily for 1 week. Take potassium supplement twice daily. All other medications remain the same Pending Studies at Discharge: No Stand-Alone Forms: My [facility], Smoking Cessation Medications and DC Order Prescriptions: New potassium chloride 20 mEq Tablet,Er Particles/Crystals 20 meq PO BID Qty: 60 0RF levofloxacin 500 mg tablet 500 mg PO DAILY 7 Days Qty: 7 0RF metolazone 5 mg tablet See Rx Instructions .ROUTE .COMPLEX Qty: 30 0RF Rx Instructions: 5 mg orally on Mondays, Wednesdays, and Fridays Continued ondansetron HCl 4 mg Tablet 4 mg PO Q8H PRN (Reason: NAUSEA/VOMITING) quetiapine 200 mg tablet 200 mg PO HS nystatin 100,000 unit/gram Powder 1 applic TOPICAL BID PRN (Reason: UNDER BREASTS NEEDED.) buprenorphine-naloxone 8-2 mg film 1 film sublingual BID insulin glargine 100 unit/mL (3 mL) insulin pen 60 unit SUBCUT QAM alprazolam 0.5 mg tablet 0.5 mg PO BID Qty: 14 0RF Rx Instructions: pt requesting to take same time as suboxone bumetanide 2 mg tablet 4 mg PO BID enoxaparin 150 mg/mL syringe 150 mg subcut QAM metformin 500 mg tablet extended release 24 hr 500 mg PO DAILY insulin aspart U-100 [Novolog FlexPen U-100 Insulin] 100 unit/mL (3 mL) insulin pen 10 unit SUBCUT AC Trelegy Ellipta 200-62.5-25 mcg blister with device 1 ea INHALATION QAM levalbuterol tartrate 45 mcg/actuation HFA aerosol inhaler 2 puff INHALATION Q4 PRN (Reason: WHEEZE) levalbuterol HCl 1.25 mg/3 mL solution for nebulization 1.25 mg INHALATION TID PRN (Reason: Shortness Of Breath Or Wheezing) ipratropium bromide 0.02 % solution 3 ml continuous nebulization QID Discharge Orders: Discharge Order (Routine); Ordered 07/03/23 Ordered By: Maurilio Herndon Admission Data Admit Date/Time: 06/30/23 21:14 Attending Provider: Maurilio Herndon Admit Provider: Casey Aguilar Primary Care Provider: Radha Barboza Other Providers: Casey Aguilar Coding Level of Care Code 08753 INP/OBS DISCH >30 MIN Diagnoses Acute on chronic respiratory failure with hypoxia J96.21 Pulmonary vascular congestion R09.89 COPD exacerbation J44.1 Hypokalemia E87.6 Diabetes E11.9 Opiate dependence F11.20 Tobacco abuse Z72.0 Chronic anticoagulation Z79.01 Acute bronchitis J20.9
== END 2023-07-03 13:47 | disposition home or self-care (01) | DRG 189 ==
LOC: ED 16:47 → EDINP 21:14 → SUATTDRO 21:14 → 2W 21:57

== ENCOUNTER 2023-07-28 14:57 | Inpatient (IN) ==
--- NOTE | 2023-07-28 15:58 | XRay Report ---
XR chest 1V portable CLINICAL HISTORY: Chest pain, nonspecific TECHNIQUE: Single frontal radiograph of the chest was obtained. Comparison: Comparison is made to chest radiograph 06/30/2023 FINDINGS: No lines and tubes are seen. Cardiomegaly is noted. Prominence and cephalization of the vasculature i s seen. No evidence of pleural effusion or pneumothorax. IMPRESSION: Cardiomegaly and mild pulmonary edema. ACT 112: Negative or not required by law. Electronically signed by: Rhaeem Macias M.D. 07/28/2023 3:57 PM
[2023-07-28] MEDS: ALBUT/IPRATROP 3MG/0.5MG NEB 3 ML VIAL INH STA (16:00)
[2023-07-28] MEDS: methylPREDNISolone 125 MG/2 ML VIAL IV STA (16:00)
--- NOTE | 2023-07-28 16:01 | Emergency Department Note ---
Impression & Plan Acute on chronic respiratory failure with hypoxia, COPD exacerbation ED Provider Note Provider: Tigre Monique MD DATE OF SERVICE: 07/28/2023 CHIEF COMPLAINT: Shortness of breath HISTORY OF PRESENT ILLNESS: Patient is a 63-year-old female history of COPD, CHF, PE on Lovenox presenting here today reporting that she has had worsening breathing over the past week. She states particularly the last day or 2 even on her 2 L of chronic home oxygen she noted her pulse ox dropped into the 70s at home. Cough with beige is consistency. No sick contacts reported. Has been using her home breathing treatments. Denies significant swelling. Has been taking her diuretics. She states she has been very compliant in taking her blood thinner. Little bit of low back pain at times. Denies chest pain to me. Denies trauma. PAST MEDICAL HISTORY: As noted above MEDICATIONS: Reviewed home medication list SOCIAL HISTORY: Smoker PHYSICAL EXAM: GENERAL: alert and oriented in no acute distress on stretcher fatigued in appearance Head: normocephalic and atraumatic EYES: No injection, discharge or icterus. NECK: Trachea midline. Supple. ENT: Mucous membranes pink and moist. LUNGS: Airway patent. No retractions. Breath sounds faint expiratory wheeze. HEART: Regular rate and rhythm. No chest wall tenderness ABDOMEN: Soft and non-tender, without guarding or rebound. SKIN: Acyanotic, warm, dry, without rashes EXTREMITIES: Without tenderness with trace to 1+ lower extremity edema. NEUROLOGICAL: No focal deficits. No aphasia. No facial droop or slurred speech. Normal strength and tone in the extremities. Sensation to gross touch normal. Ambulatory. EK bpm normal sinus rhythm without PVC or PAC. Baseline artifact but no significant ST segment elevation or depression with a QTc of 496. CONTINUOUS CARDIAC MONITORING: was ordered and showed a heart rate of 90s-100s bpm in normal sinus rhythm to sinus tachycardia Patient's laboratory studies and imaging reviewed. Differential includes Reactive airway disease, pneumonia, pneumothorax, COPD, CHF, infections, cardiac ischemia, pulmonary embolism, musculoskeletal, gastrointestinal, as well as other pathologies. IMPRESSION/MEDICAL DECISION MAKING: Initially from triage there was concern on the triage EKG computer read as a STEMI and heart alert was initiated. Easily evaluated the patient in room 81. She is not experiencing chest pain. EKG on my review without evidence of acute STEMI. Patient on home 2 L satting in the low 90s. Some but not excessive swelling of the lower legs appreciated. Will give a DuoNeb and some steroid here. Recently hospitalized last month per review of records. Is on chronic oxygen at baseline. Anticoagulated low suspicion for PE. Troponin will be sent. Tacker Off to was alerted from a heart alert made aware that we will further evaluate before considering cardiac catheterization but an echo was ordered. Chest x-ray per radiology with some rotation and minimal pulmonary edema but no pneumothorax, pneumonia, or significant effusion noted. Patient with history reported of stem cell transplant 2/2 multiple myeloma and she does have a slight leukocytosis 17 today but appears fairly chronic for her. No anemia. Normal platelet count. No significant renal dysfunction with some elevated CO2 likely to chronic respiratory issues as well as some hypokalemia. No evidence of significantly elevated BNP or troponin procalcitonin not elevated. Negative respiratory viral panel. He is on levobunolol with transient improvement. Given her significant decline in discussion with her wishes to stay for further evaluation. Will continue treatment for primarily COPD exacerbation. Hospitalist contacted. DIAGNOSIS: Acute COPD exacerbation DISPOSITION: Hospitalist will evaluate Patient was agreeable with this plan. Past Med/Surg History Medical History (Updated 07/28/23 @ 19:09 by Tigre Monique M.D.) Chronic anticoagulation Obesity hypoventilation syndrome Tobacco abuse Opiate dependence Diabetes History of pulmonary embolism Acute heart failure with preserved ejection fraction (HFpEF) Asthma COPD (chronic obstructive pulmonary disease) Multiple myeloma Surgical History No pertinent past surgical history Social History Smoking Status: Former smoker Tobacco Type: Cigarettes Cigarettes Per Day: 3 cigarettes/day; Second Hand Exposure: No; Do You Dip or Chew Tobacco: No; Hx Alcohol Use: No Hx Substance Use: No Preferred Language: German Communication Ability: Effective Planer Setup Operator Required: No Beliefs That Will Affect Care: None Current Living Situation: Homeless Current Living Situation Comment: stated to er that she is basically homeless Feels Safe at Home: Yes Assistive Devices: Oxygen - at Night Allergies Allergies Allergy/AdvReac Type Severity Reaction Status Date / Time codeine Allergy Severe Anaphylaxis Verified 07/28/23 16:06 Iodinated Contrast Media Allergy Severe Anaphylaxis Verified 07/28/23 16:06 shellfish derived Allergy Severe Anaphylaxis Verified 07/28/23 16:06 tramadol Allergy Intermediate ITCHINESS Verified 07/28/23 16:06 iohexol Allergy Unknown CAN'T Verified 07/28/23 16:06 REMEMBER diphenhydramine AdvReac Severe Anxiety Verified 07/28/23 16:06 [From Benadryl] montelukast [From Singulair] AdvReac Intermediate Anxiety Verified 07/28/23 16:06 promethazine AdvReac Intermediate Anxiety Verified 07/28/23 16:06 Home Meds Home Medications Medication Instructions Recorded Confirmed buprenorphine 8 mg-naloxone 2 mg 1 film sublingual BID 05/14/22 07/28/23 sublingual film nystatin 100,000 unit/gram topical 1 applic topical BID PRN UNDER 05/14/22 07/28/23 powder BREASTS NEEDED. ondansetron HCl 4 mg tablet 4 mg PO Q8H PRN NAUSEA/VOMITING 05/14/22 07/28/23 quetiapine 200 mg tablet 200 mg PO HS 05/14/22 07/28/23 insulin glargine 100 unit/mL (3 60 unit subcut QAM 06/21/22 07/28/23 mL) subcutaneous pen ipratropium bromide 0.02 % 3 ml continuous nebulization QID 01/16/23 07/28/23 solution for inhalation levalbuterol HCl 1.25 mg/3 mL 1.25 mg inhalation TID PRN 01/16/23 07/28/23 solution for nebulization Shortness Of Breath Or Wheezing bumetanide 2 mg tablet 4 mg PO BID 03/02/23 07/28/23 enoxaparin 150 mg/mL subcutaneous 150 mg subcut QAM 05/07/23 07/28/23 syringe fluticasone fur. 200 mcg-umeclid 1 ea inhalation QAM 05/07/23 07/28/23 62.5 mcg-vilant 25 mcg inhalat.powder (Trelegy Ellipta) insulin aspart U-100 100 unit/mL 10 unit subcut AC 05/07/23 07/28/23 (3 mL) subcutaneous pen (Novolog FlexPen U-100 Insulin aspart) levalbuterol tartrate 45 2 puff inhalation Q4 PRN WHEEZE 05/07/23 07/28/23 mcg/actuation aerosol inhaler semaglutide 0.25 mg or 0.5 mg (2 0.25 mg subcut WK 07/10/23 07/28/23 mg/3 mL) subcutaneous pen injector (Ozempic) metolazone 5 mg tablet 5 mg PO [id number] 07/28/23 07/28/23 Previous Rx's Medication Instructions Recorded alprazolam 0.5 mg tablet 0.5 mg PO BID #14 tabs 01/19/23 potassium chloride 20 mEq 20 meq PO BID #60 tabs 07/03/23 tablet,extended release(part/cryst) Results & Data (ED) Vital Signs Vital Signs - 24 hr 07/28/23 15:07 07/28/23 15:15 07/28/23 15:46 Temperature 36.6 C Temperature Source Oral Pulse Rate 101 H 96 H Pulse Rate [Apical] 95 H Pulse Rate from SpO2 Sensor 96 H Pulse Rhythm [Apical] Regular Respiratory Rate 20 16 25 H Respiratory Effort / Characteristics Short of Breath Respiratory Depth Respiratory Pattern Regular Blood Pressure 101/69 Blood Pressure [Left Arm] 108/87 Blood Pressure Mean 79 Blood Pressure Mean [Left Arm] 94 Blood Pressure Position [Left Arm] Pulse Oximetry 96 94 94 Oxygen Delivery Method Room Air Nasal Cannula Oxygen Flow Rate 2 Sepsis Recent Fever Within 48 Hours No Sepsis New/Unexplained Change in Mental Status No Sepsis Action Taken by Nursing No Action Required 07/28/23 15:50 07/28/23 16:00 07/28/23 16:00 Temperature Temperature Source Pulse Rate 94 H 95 H 95 H Pulse Rate [Apical] Pulse Rate from SpO2 Sensor 93 H 95 H Pulse Rhythm [Apical] Respiratory Rate 13 21 Respiratory Effort / Characteristics Respiratory Depth Respiratory Pattern Blood Pressure Blood Pressure [Left Arm] Blood Pressure Mean Blood Pressure Mean [Left Arm] Blood Pressure Position [Left Arm] Pulse Oximetry 93 92 Oxygen Delivery Method Oxygen Flow Rate Sepsis Recent Fever Within 48 Hours Sepsis New/Unexplained Change in Mental Status Sepsis Action Taken by Nursing 07/28/23 16:30 07/28/23 17:00 Temperature Temperature Source Pulse Rate 95 H Pulse Rate [Apical] 94 H Pulse Rate from SpO2 Sensor Pulse Rhythm [Apical] Respiratory Rate 16 17 Respiratory Effort / Characteristics Non-Labored Spontaneous Respiratory Depth Normal Respiratory Pattern Regular Blood Pressure Blood Pressure [Left Arm] 116/72 Blood Pressure Mean Blood Pressure Mean [Left Arm] 86 Blood Pressure Position [Left Arm] Semi-fowlers Pulse Oximetry 92 92 Oxygen Delivery Method Nasal Cannula Nasal Cannula Oxygen Flow Rate 3 4 Sepsis Recent Fever Within 48 Hours Sepsis New/Unexplained Change in Mental Status Sepsis Action Taken by Nursing Laboratory Data 07/28/23 15:49 07/28/23 15:49 Lab Results 07/28/23 Range/Units 15:49 WBC 17.21 H (4.8-10.8) K/ul RBC 5.97 H (4.20-5.40) M/uL Hgb 15.2 (12.0-16.0) g/dl Hct 47.6 H (37.0-47.0) % MCV 79.7 L (80.0-100.0) fL MCH 25.5 (25.0-34.0) pg MCHC 31.9 L (32.0-36.0) g/dL RDW Std Deviation 42.9 (36.4-46.3) fL RDW Coeff of Malick 15.5 H (11.5-14.5) % Plt Count 371 (130-400) K/uL MPV 9.7 (9.4-12.4) fL Immature Gran % (Auto) 0.6 % Neut % (Auto) 79.2 % Lymph % (Auto) 13.5 % [place] % (Auto) 4.0 % Eos % (Auto) 2.2 % Baso % (Auto) 0.5 % Neut # (Auto) 13.63 H (1.40-6.50) K/uL Lymph # (Auto) 2.33 (1.20-3.40) K/uL [place] # (Auto) 0.68 H (0.11-0.59) K/uL Eos # (Auto) 0.38 (0.00-0.50) K/uL Baso # (Auto) 0.09 (0.00-0.20) K/uL Immature Gran # (Auto) 0.10 (0.01-0.20) K/uL PT 10.8 (9.0-12.0) Seconds INR 1.0 (0.9-1.1) APTT 27 (21-31) Seconds PTT Ratio 1.0 Sodium 135 L (136-145) mmol/L Potassium 2.7 L (3.5-5.1) mmol/L Chloride 83 L (98-107) mmol/L Carbon Dioxide 43 H* (21-32) mmol/L Anion Gap 9 (3-11) BUN 34 H (6-23) mg/dl Creatinine 0.93 (0.6-1.2) mg/dl Est Cr Clr Drug Dosing 66.1 ml/min Est GFR ( Amer) 76.3 ml/min Est GFR (Non-Af Amer) 65.9 ml/min BUN/Creatinine Ratio 36.6 H (10-20) Glucose 133 H (70-99(Fasting)) mg/dl Calcium 9.7 (8.6-10.3) mg/dl Magnesium 1.9 (1.7-2.4) mg/dl Total Bilirubin 0.4 (0.2-1.0) mg/dl AST 10 L (13-39) U/L ALT 11 (7-52) U/L Alkaline Phosphatase 107 H (34-104) U/L Troponin I High Sens 13.5 (0-14) pg/ml B-Natriuretic Peptide 59 (0-100) pg/ml Total Protein 7.3 (6.0-8.3) gm/dl Albumin 4.1 (3.4-5.0) gm/dl Globulin 3.2 (2.5-4.0) gm/dl Albumin/Globulin Ratio 1.3 (0.9-2) Procalcitonin 0.07 (0-0.5) ng/ml Administered Medications Potassium Chloride (K Matias / Wtr) 10 meq in 100 mls @ 100 mls/hr IV Q1H FLETCHER Stop: 07/28/23 20:14 Last Admin: 07/28/23 18:39 Dose: 100 mls/hr Documented By: Infusion: 07/28/23 18:39 Dose: Infused Documented By: Admin: 07/28/23 17:32 Dose: 100 mls/hr Documented By: EDYTA Doxycycline Hyclate 100 mg/ (Dextrose) 100 mls @ 50 mls/hr IV NOW STA Stop: 07/28/23 19:23 Last Admin: 07/28/23 18:42 Dose: 50 mls/hr Documented By: EDYTA Discontinued Medications Albuterol (Albut/Ipratrop 3mg/0.5mg Neb 3 Ml Vial) 3 ml INH NOW STA Stop: 07/28/23 15:48 Last Admin: 07/28/23 16:00 Dose: 3 ml Documented By: RUBIO Fentanyl Citrate (Fentanyl Citrate Pf 100 Mcg/2 Ml Vial) Confirm Administered Dose 100 mcg .ROUTE .STK-MED ONE Stop: 07/28/23 15:47 Last Admin: 07/28/23 16:24 Dose: Not Given Documented By: LMM Heparin Sodium (Porcine) (Heparin (Porcine) 1000 Unit/Ml 10 Ml (At Home Independent [facility] Agent Use Only)) Confirm Administered Dose 10,000 units .ROUTE .STK-MED ONE Stop: 07/28/23 15:46 Last Admin: 07/28/23 16:24 Dose: Not Given Documented By: LMM Heparin Sodium/Sodium Chloride (Heparin In Nss Infusion 1000 Unit/500 Ml (2 U/Ml) Bag) Confirm Administered Dose 3,000 units IV .STK-MED ONE Stop: 07/28/23 15:47 Last Admin: 07/28/23 16:24 Dose: Not Given Documented By: LMM Magnesium Sulfate/Dextrose (Magnesium Sulfate / D5w) 1 gm in 100 mls @ 600 mls/hr IV Q10M [facility] Stop: 07/28/23 17:46 Last Infusion: 07/28/23 18:27 Dose: Infused Documented By: Admin: 07/28/23 18:14 Dose: 600 mls/hr Documented By: Infusion: 07/28/23 18:04 Dose: Infused Documented By: Admin: 07/28/23 17:42 Dose: 600 mls/hr Documented By: LMM Ioversol (Optiray 350) Confirm Administered Dose 2 ml .ROUTE .STK-MED ONE Stop: 07/28/23 15:47 Last Admin: 07/28/23 16:24 Dose: Not Given Documented By: LMM Levalbuterol HCl (Levalbuterol 1.25 Mg/3 Ml Neb) 1.25 mg NEB NOW STA Stop: 07/28/23 16:14 Last Admin: 07/28/23 16:31 Dose: 1.25 mg Documented By: LMM Levalbuterol HCl (Levalbuterol 1.25 Mg/3 Ml Neb) 1.25 mg NEB NOW STA Stop: 07/28/23 17:00 Last Admin: 07/28/23 17:04 Dose: 1.25 mg Documented By: LMM Methylprednisolone (Methylprednisolone 125 Mg/2 Ml Vial) 60 mg IV NOW STA Stop: 07/28/23 15:48 Last Admin: 07/28/23 16:00 Dose: 60 mg Documented By: RUBIO Midazolam HCl (Midazolam Hcl 1 Mg/Ml 2ml Vial) Confirm Administered Dose 2 mg .ROUTE .STK-MED ONE Stop: 07/28/23 15:46 Last Admin: 07/28/23 16:24 Dose: Not Given Documented By: LMM Nicardipine HCl (Nicardipine Hcl Inj 2.5 Mg/Ml 10 Ml Amp) Confirm Administered Dose 25 mg .ROUTE .STK-MED ONE Stop: 07/28/23 15:46 Last Admin: 07/28/23 16:24 Dose: Not Given Documented By: LMM Nitroglycerin/Dextrose (Nitroglycerin/D5w 100mcg/Ml 20ml Syr) Confirm Administered Dose 2,000 mcg .ROUTE .STK-MED ONE Stop: 07/28/23 15:47 Last Admin: 07/28/23 16:25 Dose: Not Given Documented By: LMM Potassium Chloride (Potassium Chloride Crtab 20 Meq Tabcr) 40 meq PO NOW STA Stop: 07/28/23 17:06 Last Admin: 07/28/23 17:26 Dose: 40 meq Documented By: LMM Imaging Data Radiologist's Impression: Chest X-Ray 07/28/23 15:14 XR chest 1V portable CLINICAL HISTORY: Chest pain, nonspecific TECHNIQUE: Single frontal radiograph of the chest was obtained. Comparison: Comparison is made to chest radiograph 06/30/2023 FINDINGS: No lines and tubes are seen. Cardiomegaly is noted. Prominence and cephalization of the vasculature is seen. No evidence of pleural effusion or pneumothorax. IMPRESSION: Cardiomegaly and mild pulmonary edema. ACT 112: Negative or not required by law. Electronically signed by: Raheem Macias M.D. 07/28/2023 3:57 PM Discharge Plan Visit Data Chief Complaint: Respiratory Problems Stated Complaint: PT HAS COPD VERY SHORT OF BREATH ED Provider: Tigre Monique Discharge Problem: Acute on chronic respiratory failure with hypoxia, COPD exacerbation Patient Disposition: Being Evaluated by Hospitalist Discharge Instructions Interventions: ED Discharge Assessment Last Done: 07/28/23 19:06
[2023-07-28 16:22] LABS: Basophils # (auto) 0.09 K/uL (0.00-0.20); Basophils % (auto) 0.5 %; Eosinophils # (auto) 0.38 K/uL (0.00-0.50); Eosinophils % (auto) 2.2 %; Hematocrit (blood only) 47.6 % (37.0-47.0); Hemoglobin 15.2 g/dl (12.0-16.0); Immature Granulocytes % (auto) 0.6 %; Lymphocytes # (auto) 2.33 K/uL (1.20-3.40); Lymphocytes % (auto) 13.5 %; Mean Corpuscular Hemoglobin 25.5 pg (25.0-34.0); Mean Corpuscular Hgb Conc 31.9 g/dL (32.0-36.0); Mean Corpuscular Volume 79.7 fL (80.0-100.0); Mean Platelet Volume 9.7 fL (9.4-12.4); Monocytes # (auto) 0.68 K/uL (0.11-0.59); Neutrophils # (auto) 13.63 K/uL (1.40-6.50); Neutrophils % (auto) 79.2 %; Platelet Count 371 K/uL (130-400); RDW Coefficient of Variation 15.5 % (11.5-14.5); RDW Standard Deviation 42.9 fL (36.4-46.3); Red Blood Count 5.97 M/uL (4.20-5.40); White Blood Count 17.21 K/ul (4.8-10.8)
[2023-07-28] MEDS: niCARdipine HCL INJ 2.5 MG/ML 10 ML AMP ONE (16:24)
[2023-07-28] MEDS: HEPARIN (PORCINE) 1000 UNIT/ML 10 ML (CATH LAB USE ONLY) ONE (16:24)
[2023-07-28] MEDS: OPTIRAY 350 ONE (16:24)
[2023-07-28] MEDS: MIDAZOLAM HCL 1 MG/ML 2ML VIAL ONE (16:24)
[2023-07-28] MEDS: fentaNYL citrate PF 100 MCG/2 ML VIAL ONE (16:24)
[2023-07-28] MEDS: NITROGLYCERIN/D5W 100MCG/ML 20ML SYR ONE (16:25)
[2023-07-28] MEDS: LEVALBUTEROL 1.25 MG/3 ML NEB NEB STA ×2 (16:31→17:04)
[2023-07-28 16:33] LABS: Partial Thromboplastin Time 27 Seconds (21-31); Prothrombin Time 10.8 Seconds (9.0-12.0)
[2023-07-28 16:47] LABS: Albumin Globulin Ratio 1.3 (0.9-2); Albumin Level 4.1 gm/dl (3.4-5.0); BUN Creatinine Ratio 36.6 (10-20); Bilirubin,Total 0.4 mg/dl (0.2-1.0); Calcium 9.7 mg/dl (8.6-10.3); Creatinine Clr Calc Pharmacy 66.1 ml/min; Est GFR (African American) 76.3 ml/min; Est GFR (Non-African American) 65.9 ml/min; Globulin 3.2 gm/dl (2.5-4.0); Magnesium 1.9 mg/dl (1.7-2.4); Potassium 2.7 mmol/L (3.5-5.1); Total Protein 7.3 gm/dl (6.0-8.3)
[2023-07-28 16:50] LABS: Troponin I High Sensitivity 13.5 pg/ml (0-14)
--- NOTE | 2023-07-28 17:03 | History & Physical Report ---
Date of Service July 28, 2023 Assessment & Plan (1) COPD exacerbation: Plan: -Admit to med/tele on pulse oximetry -Currently hemodynamically stable, in no respiratory distress, and stable on her baseline 2L NC -Presented to the ED today due to 4 days of progressive SOB and wheezing -Was initially made a heart alert in triage due to the ECG computer read out stating she had a new inferior STEMI, however, on closer inspection, she does not have significant ST segment or T-wave changes -BNP and High sen trop are WNL, she does have some pulmonary vascular congestion on chest xray, but her volume status is improved compared to last admisison -She is still experiencing expiratory wheezing throughout all lung soriano -Will obtain stat ABG as blood gases were not obtained in the ED -Will obtain procal -Will continue to treat as COPD exacerbation moving forward -S/P 60 mg IV Solu-Medrol in the ED, will continue with 40 mg IV Soul-medrol BID tomorrow am -Will start BID Doxycycline as her QTc is currently 470 -Will convert her to BIDr budesonide and formoterol nebs -Start QIDr Levalbuterol/Ipratropium Nebs -Will give 2gm IV Mag-sulfate now -Incentive spirometry, flutter therapy -PRN O2 to keep SpO2 between 89-92% -Will obtain sputum culture with gram stain -HH/DMII diet with 2gm sodium and 1800 fluid restriction -AM CBC, BMP, mag, PT/INR (2) SOB (shortness of breath): Plan: -Likely due to COPD exacerbation -No chest pain, ECG changes, or labs to suggest ACS -Has been complaint on her Lovenox, hemodynamically stable, and without pleuritic chest pain, low suspicion for PE -No focal consolidation on CXR to suggest bacterial PNA at this time -Rest of care per COPD exacerbation (3) Hypokalemia: Plan: -Noted to be 2.7 in the ED -Mag of 1.9 -Ordered 40 meq PO KCL and 3 bags of 10 meq IV KCL to be given on admission -Continue to monitor on tele -Will repeat K+ level at 2100 -Monitor am electrolytes (4) Tobacco abuse: Plan: -Continue to stress the importance of cessation -Patient seems motivated to quit today due to the severity of her symptoms over the past 72 hours -Denied need for nicotine patch or gum at this time (5) Chronic anticoagulation: Plan: -Continue Lovenox for hx of PE -Denies recently missed doses (6) Diabetes: Plan: -Monitor BSG ACHS, goal is 110-160 while on steroids -Will start 30 units lantus BID as she normally takes 60 daily -Start CF of 45 and CR of 15 -Pharmacy glycemic consult placed -Adjust regimen as needed (7) Obesity hypoventilation syndrome: Plan: -Continue prn O2 -Continue to stress importance of ELEUTERIO testing on discharge (8) Opiate dependence: Plan: -Continue Suboxone (9) Heart failure with preserved ejection fraction: Plan: -Currently euvolemic on exam -Continue BID Bumetanide -Continue metolazone on MWF Plan The patient was discussed with Dr. Ellsworth at the time of the admission History of Present Illness Chief Complaint: SOB Primary Care Provider: Radha Jabari Monzon is 63yo female with multiple medical comorbidities to include COPD on supplemental O2 2L NC HS, HFpEF, DM, prior PE on Lovenox who presented to the [facility] ED on 07/28/23 with complaints of increased SOB. On arrival to the ED she was noted to be stable on her baseline 2L NC and tachycardic with HR of 101 but otherwise stable. A heart alert was called after arrival as ECG was concerning for possible inferior STEMI. However, after closer review, the patient did not have true ECG changes concerning for STEMI. Labs were significant for a leukocytosis of 17 with neutrophil predominance of 13, bicarb of 43, chloride of 83, potassium of 2.7, BNP and high sen trop WNL, and full respiratory biofire was negative. Chest xray was read as Cardiomegaly and mild pulmonary edema.. Prior to admission the patient was given 2 levalbuterol nebulizers, 60 mg IV methylprednisolone, and an albuterol treatment. At the time of the exam the patient was sitting in bed in no acute distress. She is currently stable on her baseline 2L NC. States that over the past 3-4 days has had significantly more SOB and wheezing than baseline. Has been unable to smoke over the past 3 days due to symptoms. States that since starting metolazone MWF on top of BID Bumex her volume status has been much improved, she does not feel as though she has been more swollen recently. Has had a bit of a more productive cough but denies changes in sputum production. Denies recent fever, chills, chest pain, pleuritic chest pain, hemoptysis, abd pain, vomiting, dysuria, hematuria, diarrhea, melena, LE swelling, and recent trauma. Since arriving to the ED and receiving multiple breathing treatments and IV Solu- medrol her acute respiratory symptoms has improved but not resolved. She is a fu ll code. Please refer to Dr. Ellsworth's attestation for any changes to the treatment plan Allergies Allergy/AdvReac Type Severity Reaction Status Date / Time codeine Allergy Severe Anaphylaxis Verified 07/28/23 16:06 Iodinated Contrast Media Allergy Severe Anaphylaxis Verified 07/28/23 16:06 shellfish derived Allergy Severe Anaphylaxis Verified 07/28/23 16:06 tramadol Allergy Intermediate ITCHINESS Verified 07/28/23 16:06 iohexol Allergy Unknown CAN'T Verified 07/28/23 16:06 REMEMBER diphenhydramine AdvReac Severe Anxiety Verified 07/28/23 16:06 [From Benadryl] montelukast [From Singulair] AdvReac Intermediate Anxiety Verified 07/28/23 16:06 promethazine AdvReac Intermediate Anxiety Verified 07/28/23 16:06 Home Medications Medication Instructions Recorded Confirmed Type buprenorphine 8 mg-naloxone 2 mg 1 film sublingual BID 05/14/22 07/28/23 History sublingual film nystatin 100,000 unit/gram topical 1 applic topical BID PRN UNDER 05/14/22 07/28/23 History powder BREASTS NEEDED. ondansetron HCl 4 mg tablet 4 mg PO Q8H PRN NAUSEA/VOMITING 05/14/22 07/28/23 History quetiapine 200 mg tablet 200 mg PO HS 05/14/22 07/28/23 History insulin glargine 100 unit/mL (3 60 unit subcut QAM 06/21/22 07/28/23 History mL) subcutaneous pen ipratropium bromide 0.02 % 3 ml continuous nebulization QID 01/16/23 07/28/23 History solution for inhalation levalbuterol HCl 1.25 mg/3 mL 1.25 mg inhalation TID PRN 01/16/23 07/28/23 History solution for nebulization Shortness Of Breath Or Wheezing alprazolam 0.5 mg tablet 0.5 mg PO BID #14 tabs 01/19/23 07/28/23 Rx bumetanide 2 mg tablet 4 mg PO BID 03/02/23 07/28/23 History enoxaparin 150 mg/mL subcutaneous 150 mg subcut QAM 05/07/23 07/28/23 History syringe fluticasone fur. 200 mcg-umeclid 1 ea inhalation QAM 05/07/23 07/28/23 History 62.5 mcg-vilant 25 mcg inhalat.powder (Trelegy Ellipta) insulin aspart U-100 100 unit/mL 10 unit subcut AC 05/07/23 07/28/23 History (3 mL) subcutaneous pen (Novolog FlexPen U-100 Insulin aspart) levalbuterol tartrate 45 2 puff inhalation Q4 PRN WHEEZE 05/07/23 07/28/23 History mcg/actuation aerosol inhaler potassium chloride 20 mEq 20 meq PO BID #60 tabs 07/03/23 07/28/23 Rx tablet,extended release(part/cryst) semaglutide 0.25 mg or 0.5 mg (2 0.25 mg subcut WK 07/10/23 07/28/23 History mg/3 mL) subcutaneous pen injector (Ozempic) metolazone 5 mg tablet 5 mg PO 3XWK 07/28/23 07/28/23 History Past Med/Surg History Medical History (Updated 07/28/23 @ 17:37 by Amari Macias PA-C) Chronic anticoagulation Obesity hypoventilation syndrome Tobacco abuse Opiate dependence Diabetes History of pulmonary embolism Acute heart failure with preserved ejection fraction (HFpEF) Asthma COPD (chronic obstructive pulmonary disease) Multiple myeloma Surgical History No pertinent past surgical history Social History Smoking Status: Former smoker Tobacco Type: Cigarettes Cigarettes Per Day: 3 cigarettes/day; Second Hand Exposure: No; Do You Dip or Chew Tobacco: No; Hx Alcohol Use: No Hx Substance Use: No Preferred Language: Indonesian Communication Ability: Effective Piano Tuner Required: No Beliefs That Will Affect Care: None Current Living Situation: Homeless Current Living Situation Comment: stated to er that she is basically homeless Feels Safe at Home: Yes Assistive Devices: Oxygen - at Night Physical Exam Physical Exam: Physical Exam: General: In no acute distress, stated age, chronically ill-appearing but non- toxic HEENT: Normocephalic, atraumatic, no scleral icterus, pupils around round, symmetrical, and reactive to light, no JVD, moist mucus membranes, trachea midline, no thyromegaly Chest/Pulm: No respiratory distress, symmetrical chest expansion, expiratory wheezing noted throughout Cardiac: RRR, no murmurs noted Abdomen: Negative for ascites and bruising, normoactive bowel sounds, soft, non-tender to palpation throughout Musculoskeletal: Symmetrical and without signs of acute trauma, upper and lower extremities with full ROM, no atrophy, spasticity, or flaccidity Extremities: Radial, dorsalis pedis, and posterior tibial pulses are intact and symmetrical, no edema noted in the BL LE's Skin: Warm, dry, no rashes , lesions, or scars noted Neuro: Alert and oriented to person, place, month, year, and president, no focal defects, no tremors noted Psych: No acute distress, calm and cooperative during the exam Results & Data Results & Data Vital Signs (Past 12 Hours) Vital Signs Temp Pulse Pulse Resp BP BP Pulse Ox 07/28/23 17:00 94 H 17 116/72 92 07/28/23 16:30 95 H 16 92 07/28/23 16:00 95 H 21 92 07/28/23 16:00 95 H 07/28/23 15:50 94 H 13 93 07/28/23 15:46 96 H 25 H 94 07/28/23 15:15 95 H 16 108/87 94 07/28/23 15:07 36.6 C 101 H 20 101/69 96 O2 Del Method O2 Flow Rate 07/28/23 17:00 Nasal Cannula 4 07/28/23 16:30 Nasal Cannula 3 07/28/23 16:00 07/28/23 16:00 07/28/23 15:50 07/28/23 15:46 07/28/23 15:15 Nasal Cannula 2 07/28/23 15:07 Room Air Laboratory Results Abnormal lab results 07/28/23 Range/Units 15:49 WBC 17.21 H (4.8-10.8) K/ul RBC 5.97 H (4.20-5.40) M/uL Hct 47.6 H (37.0-47.0) % MCV 79.7 L (80.0-100.0) fL MCHC 31.9 L (32.0-36.0) g/dL RDW Coeff of Malick 15.5 H (11.5-14.5) % Neut # (Auto) 13.63 H (1.40-6.50) K/uL Cook # (Auto) 0.68 H (0.11-0.59) K/uL Sodium 135 L (136-145) mmol/L Potassium 2.7 L (3.5-5.1) mmol/L Chloride 83 L (98-107) mmol/L Carbon Dioxide 43 H* (21-32) mmol/L BUN 34 H (6-23) mg/dl BUN/Creatinine Ratio 36.6 H (10-20) Glucose 133 H (70-99(Fasting)) mg/dl AST 10 L (13-39) U/L Alkaline Phosphatase 107 H (34-104) U/L Diagnostic Findings Chest X-Ray 07/28/23 15:14 XR chest 1V portable CLINICAL HISTORY: Chest pain, nonspecific TECHNIQUE: Single frontal radiograph of the chest was obtained. Comparison: Comparison is made to chest radiograph 06/30/2023 FINDINGS: No lines and tubes are seen. Cardiomegaly is noted. Prominence and cephalization of the vasculature is seen. No evidence of pleural effusion or pneumothorax. IMPRESSION: Cardiomegaly and mild pulmonary edema. ACT 112: Negative or not required by law. Electronically signed by: Raheem Macias M.D. 07/28/2023 3:57 PM ECG Additional Comments: Normal sinus rhythm Possible Left atrial enlargement Anterior infarct , age undetermined Inferior injury pattern ACUTE VA / STEMI Consider right ventricular involvement in acute inferior infarct Abnormal ECG When compared with ECG of 30-JUN-2023 17:50, Anterior infarct is now Present Code Status & VTE Plan Code Status Full code VTE Prophylaxis Plan VTE Prophylaxis will be ordered: Yes Supervising Physician Co-Signing Physician Notes Janae is a 63-year-old female with past medical history of COPD with chronic respiratory failure on oxygen, heart failure with preserved ejection fraction, DM, and past history of PE who presents to the ER as a heart alert. Patient was a walk-in to the ER for shortness of breath and dyspnea for several days, triage EKG concerning for inferior STEMI with ST elevation in lead III. Patient was recently admitted and discharged 07/03/2023 following admission for COPD exacerbation with pulmonary vascular congestion and bronchitis which resolved with Lasix, initial Rocephin/azithromycin, and supportive care for COPD. She presents with shortness of breath, increased sputum production, hypercapnia, and hypokalemia. Acute on chronic hypercapnic, hypercarbic respiratory failure with hypoxia Baseline oxygen of 2 L nasal cannula Bumex 4mg PO BID --> 4mg IV BID - Low salt diet Patient did present as a heart alert due to an automated read on the EKG, on review no evidence of ST changes Patient is hypercapnic, bicarb 43 with gas pending BNP 59 Suspect acute on chronic COPD exacerbation suspect relatively minimal cardiac component High sensitive troponin is normal Agree with treatment as above Potassium repleted Type II DM Metformin held, pt on semaglutide weekly Goal BSG [id number] Basal bolus as above Opioid dependence Continue buprenorphine Tobacco abuse With continued tobacco use. Cessation recommended. NRT declined. History of PE Continue Lovenox 150 mg SQ every morning daily PG Care Time/CCT Total # of Minutes Spent Total Time Spent with Patient: Total time spent is greater than 50% in coordination of care (as documented) at patient's floor/unit and/or counseling patient: [place] [address] INT INP/OBS CARE 375MIN Patient Type Established Medical Decision Making High Complexity Diagnoses COPD exacerbation J44.1 SOB (shortness of breath) R06.02 Hypokalemia E87.6 Tobacco abuse Z72.0 Chronic anticoagulation Z79.01 Diabetes E11.9 Obesity hypoventilation syndrome E66.2 Opiate dependence F11.20 Heart failure with preserved ejection fraction I50.30
[2023-07-28 17:10] LABS: Adenovirus PCR Not Detected (NotDetected); Bordetella parapertussis PCR Not Detected (NotDetected); Bordetella pertussis PCR Not Detected (NotDetected); Chlamydia pneumoniae PCR Not Detected (NotDetected); Coronavirus 229E PCR Not Detected (NotDetected); Coronavirus CoV-2 (COVID19)PCR Not Detected (NotDetected); Coronavirus HKU1 PCR Not Detected (NotDetected); Coronavirus NL63 PCR Not Detected (NotDetected); Coronavirus OC43PCR Not Detected (NotDetected); Human Metapneumovirus PCR Not Detected (NotDetected); Influenza A PCR Not Detected (NotDetected); Influenza B PCR Not Detected (NotDetected); Mycoplasma pneumoniae PCR Not Detected (NotDetected); Parainfluenza Virus 1 PCR Not Detected (NotDetected); Parainfluenza Virus 2 PCR Not Detected (NotDetected); Parainfluenza Virus 3 PCR Not Detected (NotDetected); Parainfluenza Virus 4 PCR Not Detected (NotDetected); Respiratory Syncytial VirusPCR Not Detected (NotDetected); Rhinovirus/Enterovirus PCR Not Detected (NotDetected)
[2023-07-28] MEDS ORDERED: DEXTROSE 50% 50 ML SYRINGE IV PRN (17:13)
[2023-07-28] MEDS ORDERED: CARBOHYDRATES FOR HYPOGLYCEMIA PO PRN (17:13)
[2023-07-28] MEDS ORDERED: PHARMACY GLYCEMIC MGMT CONSULT PRN (17:13)
[2023-07-28] MEDS ORDERED: GLUCOSE 10 TAB/TUBE PO PRN (17:13)
[2023-07-28] MEDS ORDERED: GLUCAGON FOR INJ 1 MG VIAL SQ PRN (17:13)
[2023-07-28] MEDS ORDERED: GLUCOSE 40% GEL 15 GM TUBE PO PRN (17:13)
[2023-07-28] MEDS: POTASSIUM CHLORIDE CRTAB 20 MEQ TABCR PO STA ×2 (17:26→20:56)
[2023-07-28] MEDS: POTASSIUM CHLORIDE / WTR 10 MEQ/100 ML PLCT IV SCH (17:32)
[2023-07-28] MEDS: MAGNESIUM SULFATE / D5W 1 GM/100 ML BAG IV SCH (17:42)
[2023-07-28] MEDS: DOXYCYCLINE HYCLATE 100 MG in DEXTROSE 5% MINI-B 100 ML IV STA (18:42)
[2023-07-28] MEDS ORDERED: INSULIN ASPART PER UNIT CHARGE SC SCH (18:45)
[2023-07-28] MEDS ORDERED: XOPENEX/ATROVENT 1.25mg/0.5MG NEB COMBO NEB SCH (19:00)
[2023-07-28] MEDS ORDERED: ALBUT/IPRATROP 3MG/0.5MG NEB 3 ML VIAL NEB SCH (19:00)
[2023-07-28 19:14] LABS: Base Excess ABG 22.2 mEq/L (-9-1.8); HCO3 ABG 48 mmol/L (19-24); Oxygen Saturation ABG 97.4 % (90-95); PCO2 ABG 55 mmHg (35-46); PO2 ABG 73 mmHg (80-95)
[2023-07-28 19:15] LABS: Allen Test Pos (Pos); pH ABG 7.55 (7.35-7.45)
[2023-07-28] MEDS ORDERED: LEVALBUTEROL 1.25 MG/3 ML NEB INH PRN (20:17)
[2023-07-28] MEDS: BUPRENORPHINE/NALOXONE 8/2 MG TAB SL SCH (20:53)
[2023-07-28] MEDS: INSULIN ASPART PER UNIT CHARGE SC SCH (20:53)
[2023-07-28] MEDS: ALPRAZolam 0.5 MG TABLET PO SCH (20:53)
[2023-07-28] MEDS: NovoLIN-N (NPH) PER UNIT CHARGE SQ ONE (20:54)
[2023-07-28] MEDS ORDERED: LANTUS PER UNIT CHARGE SQ SCH (21:00)
[2023-07-28] MEDS: IPRATROPIUM BROMIDE NEB SOLN 0.02% 0.5MG/2.5ML VIAL INH SCH (21:01)
[2023-07-28] MEDS: LEVALBUTEROL 1.25 MG/3 ML NEB NEB SCH (21:01)
[2023-07-28] MEDS: BUMETANIDE 1 MG TAB PO SCH (21:20)
[2023-07-28] MEDS: QUEtiapine FUMARATE 200 MG TAB PO SCH (21:20)
--- NOTE | 2023-07-28 22:44 | XCELERA ---
[id number] [email or web address]\[id number]
[2023-07-28] MEDS: BUDESONIDE 0.5 MG/2 ML VIAL (PULMICORT) NEB SCH (23:39)
[2023-07-28] MEDS: FORMOTEROL 20 MCG/2 ML VIAL NEB SCH (23:39)
[2023-07-29] MEDS: INSULIN ASPART PER UNIT CHARGE SC SCH (00:11)
--- OUTSIDE RECORDS SUMMARY | 2023-07-29 04:44 | External Medical Summary | Continuity of Care Document ---
Author Name Unknown Organization [facility] [address] [address] [place] [id number] Care Team Providers Care Cloth Opener Hand Name Role Phone Radha Barboza Primary Care Physician [phone] Encounter [facility] [id number] Date(s): 07/22/23 - 07/22/23 [facility] [address] [facility] [address] [facility] [address] [place] [address] [phone] Encounter Diagnosis Body mass index [BMI] 36.0-36.9, adult(Discharge Diagnosis) - 07/22/23 HTN (hypertension)(Discharge Diagnosis) - 07/22/23 Lower extremity edema(Discharge Diagnosis) - 07/22/23 Controlled diabetes mellitus with hyperglycemia(Discharge Diagnosis) - 07/22/23 Discharge Disposition: Home or Self Care Attending Physician: ELENA Barboza Kimberly A Allergies, Adverse Reactions, Alerts Substance Reaction Severity Status codeine Active iodine topical Active Phenergan Itchy Rash Moderate Active oral contrast dye SOB - Shortness of breath Active metFORMIN Angioedema Active Benedryl Allergy Sinus Activ e shellfish Active Immunizations Given and Recorded Vaccine Date Status Refusal Reason SARS-CoV-2 (COVID-19) mRNA BNT-162b2 vax 1 04/06/21 Recorded SARS-CoV-2 (COVID-19) mRNA BNT-162b2 vax 2 09/02/20 Recorded SARS-CoV-2 (COVID-19) mRNA BNT-162b2 vax 3 08/08/20 Recorded 1Result Comment: 2023-03-11: Historical information-source unspecified 2Result Comment: 2023-03-11: Historical information-source unspecified 3Result Comment: 2023-03-11: Historical information-source unspecified Medications Accu-Chek FastClix Lancets Start: 06/30/23 14:06:00 EST, See Instructions, Disp# 102 lancet, Refills: 0, 32G x , [id number] Start Date: 06/30/23 Status: Ordered ALPRAZolam 0.5 mg oral tablet Start: 06/24/23 9:04:00 EST, 1 tab, PO, bid, Disp# 90 tab, Refills: 2, Make take an extra tablet for acute panic attacks. Max 3/day, PRN: as needed for anxiety, [id number] Start Date: 06/24/23 Status: Ordered bumetanide 2 mg oral tablet Start: 03/09/23 22:51:00 EST, See Instructions, Disp# 360 tab, Refills: 3, TAKE 2 TABLETS BY MOUTH IN THE MORNING AND 2 TABLET AT LUNCHTIME, Pharmacy: [facility] #[id number] Start Date: 03/09/23 Status: Ordered buprenorphine-naloxone 8 mg-2 mg sublingual film Start: 06/30/23 16:21:00 EST, 1 patch, SL, bid, Disp# 60 patch, Refills: 0, [id number] Start Date: 06/30/23 Stop Date: 07/30/23 Status: Ordered DEXCOM G6 SENSOR Start: 06/26/23 9:55:00 EST, DEXCOM G6 SENSOR, See Instructions, Disp# 3 unknown unit, Refills: 1, USE DIRECTED BY MD TO TEST GLUCOSE 4-5 TIMES A DAY, Pharmacy [id number] Start Date: 06/26/23 Status: Ordered Dexcom G6 Sensor Kit Start: 06/24/23 9:01:00 EST, See Instructions, Disp# 1 kit, Refills: 5, Check BS up to three times daily, Note to Pharmacy: Uncontrolled DM2 (E11.65), Pharmacy: [facility] #[id number] Start Date: 06/24/23 Status: Ordered enoxaparin 150 mg/mL injectable solution Start: 06/24/23 9:03:00 EST, 1 mL, subQ, Daily, Disp# 30 mL, Refills: 11, Pharmacy: [facility] #[id number] Start Date: 06/24/23 Status: Ordered Lantus [...] ac, Disp# 15 mL, Refills: 5, Pharmacy: [facility] #[id number] Start Date: 02/17/23 Status: Ordered ondansetron 4 mg oral tablet, disintegrating Start: 03/11/23 12:29:00 EST, 1 tab, PO, q8h, Disp# 30 tab, Refills: 1, PRN: as needed for nausea/vomiting, [id number] Start Date: 03/11/23 Status: Ordered Ozempic (0.25 mg or 0.5 mg dose) 2 mg/3 mL subQ pen Start: 07/08/23 14:47:00 EDT, See Instructions, subQ, q7days, Disp# 3 mL, Refills: 1, Inject 0.25 mg every 7 days X 4 weeks then increase to 0.5 mg SQ every 7 days., Pharmacy: [facility] #[id number], Supply Start Date: 07/08/23 Status: Ordered Potassium Chloride (Eqv-K-Tab) 20 mEq oral tablet, extended release Start: 07/14/23 14:21:00 EDT, 1 tab, PO, tid, Disp# 90 tab, Refills: 3, Pharmacy: [facility] #[id number] Start Date: 07/14/23 Stop Date: 11/11/23 Status: Ordered Pulmicort Flexhaler Start: 06/19/23 13:53:00 EST Start Date: 06/19/23 Status: Ordered QUEtiapine 200 mg oral tablet Start: 06/22/23 17:20:00 EST, 1 tab, PO, Daily, Disp# 90 tab, Refills: 3, Pharmacy: [facility] #[id number] Start Date: 06/22/23 Status: Ordered Trelegy Ellipta 200 mcg-62.5 mcg-25 mcg/inh inhalation powder Start: 07/08/22 11:13:00 EDT Start Date: 07/08/22 Status: Ordered UltiCare Pen Needle 32G x 4mm Start: 07/08/23 14:51:00 EDT, See Instructions, Disp# 100 pen_needle, Refills: 1, Use three times daily, Note to Pharmacy: E11.65, Pharmacy: [facility] #[id number] Start Date: 07/08/23 Status: Ordered Zaroxolyn 2.5 mg oral tablet Start: 06/24/23 9:06:00 EST, See Instructions, Disp# 15 tab, Refills: 1, 1 tab QOD, Pharmacy: [facility] #[id number] Start Date: 06/24/23 Status: Ordered Mental Status 07/22/23 Barriers to Learning one year None evide nt Mandatory Health Literacy Documentation Yes Health Literacy Communication Barriers N ever Primary Language Qatari Problem List Condition Confirmation Course Effective Dates Status Health St atus Informant COPD with exacerbation Confirmed Active Anxiety Confirmed Active Cataract Confirmed Active Chronic eczema Confirmed Active Chronic low back pain Confirmed Active COPD without exacerbation Confirmed Active Congestive heart failure Confirmed Active Diabetes Confirmed Active Dyspnea on minimal exertion Confirmed Active Lower extremity edema Confirmed Active History of pulmonary embolus (PE) Confirmed Active History of ovarian cancer Confirmed Active Insomnia Confirmed Active Plasma cell myeloma Confirmed Active Multiple myeloma Confirmed Active Chemotherapy-induce d nausea Confirmed Active Opioid use disorder in remission Confirmed Active Chronic prescription opiate use Confirmed Active Seasonal allergies Confirmed Active Tobacco user Confirmed Active Weight disorder Confirmed Active Diagnosis Diagnosis Type Effective Dates Health Status Clinical Service Informant Body mass index [BMI] 36.0-36.9, adult Discharge Diagnosis 07/22/23 Non-Specified Lower extremity edema Discharge Diagnosis 07/22/23 Non-Specified Controlled diabetes mellitus with hyperglycemia Discharge Diagnosis 07/22/23 Non-Specified HTN (hypertension) Discharge Diagnosis 07/22/23 Non-Specified Procedures Procedure Date Related Diagnosis Body Site Status Bone marrow biopsy 2013 Comple ganesh Results Most recent to oldest [Reference Range]: 1 HgbA1C Outside Ref Range 4.5-5.6 (05/08/23 5:19 AM) HGb A1C Outside 10.5 % (05/08/23 5:19 AM) Vital Signs Most recent to oldest [Reference Range]: 1 Height 157.8 cm (07/22/23 2:20 PM) Patient Weight 91.6 kg (07/22/23 2:20 PM) Body Mass Index 36.79 kg/m2 (07/22/23 2:20 PM) Heart Rate 90 bpm (07/22/23 2:20 PM) Respiratory Rate 18 br/min (07/22/23 2:20 PM) Blood Pressure 104/72mmHg (07/22/23 2:20 PM) Cuff Pulse Pressure 32 mmHg (07/22/23 2:20 PM) Social History Social History Type Response Smoking Status Current every day li ght smoker Sex Female Patient Care team information Care Team Personnel Name: ELENA Barboza, Radha Bhatia Position: Physician Asst Exmpt - Family Med Member Role: Primary Care Provider Address: Address: [address] [place] [address] [place] [id number] Name: MARGARET Dunn Jo Ann M Position: Nurse Pract - Hem/Onc Member Role: Lifetime Relationship Address: Address: [address] [place] [id number] Care Team Related Persons Name: MO SAMUEL Address[facility]
--- OUTSIDE RECORDS SUMMARY | 2023-07-29 04:45 | External Medical Summary | Continuity of Care Document ---
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 Name Role Phone JabariRadha Primary Care Physician [phone] Encounter [facility] [id number] Date(s): 06/30/23 - 06/30/23 [facility] [address] [facility] 207 [facility] 1850 [facility], [facility] 207 [place] [address] [phone] Encounter Diagnosis Diabetes(Discharge Diagnosis) - 06/30/23 Opioid use disorder in remission(Discharge Diagnosis) - 06/30/23 Dyspnea on minimal exertion(Discharge Diagnosis) - 06/30/23 Discharge Disposition: Home or Self Care Attending Physician: DO Gracia Gretchen Elizabeth Allergies, Adverse Reactions, Alerts Substance Reaction Severity Status codeine Active iodine topical Active Phenergan Itchy Rash Moderate Active metFORMIN Angioedema Active shellfish Active Benedryl Allergy Sinus Activ e oral contrast dye SOB - Shortness of breath Active Assessment and Plan Extracted from: Title:Med Refill (opioid use d/o)//Acute on chronic dyspnea on exertion Author:MD Marlee, Anais Date:06/30/23 1.Opioid use disorder in r emission Chronic;uncomplicated;not at goal -Dr. Gracia will send Suboxone prescription to pharmacy. -Appt with pain medicine "pending." Unsure with whom. No record of appt. in either [facility] ([facility]) or [facility] ([facility]) EMRs. 2.Dyspnea on minimal exertion Acute;complicated;not at goal -HPI, exam findings consistent with acute fluid overload. SpO2 also dropped to 84% on walking exam. Given her hx of CHF, likely presentation of acute exacerbation. -Pt. already on multiple diuretics and appears on the verge of acute decompensation. -Recommended immediate trip to the ER for IV diuresis, supportive management. Pt. declined to go immediately as she wants to gather her medications from home before going to ER. -Explained the risks of acute decompensation at home to pt, who expressed understanding of the risks. She agrees to go the ER once she's gathered her medications and secured her belongings at home. Immunizations Given and Recorded Vaccine Date Status [...] 102 lancet, Refills: 0, 32G x , Pharmacy:[facility]/pharmacy #[id number] Start Date: 06/30/23 Status: Ordered ALPRAZolam 0.5 mg oral tablet Start: 06/24/23 9:04:00 EST, 1 tab, PO, bid, Disp# 90 tab, Refills: 2, Make take an extra tablet for acute panic attacks. Max 3/day, PRN: as needed for anxiety, Pharmacy: [facility]/pharmacy #[id number] Start Date: 06/24/23 Status: Ordered bumetanide 2 mg oral tablet Start: 03/09/23 22:51:00 EST, See Instructions, Disp# 360 tab, Refills: 3, TAKE 2 TABLETS BY MOUTH IN THE MORNING AND 2 TABLET AT LUNCHTIME, Pharmacy: [facility]/pharmacy #[id number] Start Date: 03/09/23 Status: Ordered buprenorphine-naloxone 8 mg-2 mg sublingual film Start: 06/30/23 16:21:00 EST, 1 patch, SL, bid, Disp# 60 patch, Refills: 0, Pharmacy: [facility]/pharmacy #[id number] Start Date: 06/30/23 Stop Date: 07/30/23 Status: Ordered DEXCOM G6 SENSOR Start: 06/26/23 9:55:00 EST, DEXCOM G6 SENSOR, See Instructions, Disp# 3 unknown unit, Refills: 1, USE DIRECTED BY MD TO TEST GLUCOSE 4-5 TIMES A DAY, Pharmacy [id number] Start Date: 06/26/23 Status: Ordered Dexcom G6 Sensor Kit Start: 06/24/23 9:01:00 EST, See Instructions, Disp# 1 kit, Refills: 5, Check BS up to three times daily, Note to Pharmacy: Uncontrolled DM2 (E11.65), Pharmacy: [facility]/pharmacy #[id number] Start Date: 06/24/23 Status: Ordered enoxaparin 150 mg/mL injectable solution Start: 06/24/23 9:03:00 EST, 1 mL, subQ, Daily, Disp# 30 mL, Refills: 11, Pharmacy: [facility]/pharmacy #[id number] Start Date: 06/24/23 Status: Ordered [...] ac, Disp# 15 mL, Refills: 5, Pharmacy: [facility]/pharmacy #[id number] Start Date: 02/17/23 Status: Ordered ondansetron 4 mg oral tablet, disintegrating Start: 03/11/23 12:29:00 EST, 1 tab, PO, q8h, Disp# 30 tab, Refills: 1, PRN: as needed for nausea/vomiting, Pharmacy: [facility]/pharmacy #[id number] Start Date: 03/11/23 Status: Ordered Potassium Chloride (Eqv-K-Tab) 20 mEq oral tablet, extended release Start: 06/19/23 14:47:00 EST, 1 tab, PO, tid, Disp# 90 tab, Refills: 3, Pharmacy: [facility]/pharmacy #[id number] Start Date: 06/19/23 Stop Date: 10/17/23 Status: Ordered predniSONE 20 mg oral tablet Start: 06/19/23 13:53:00 EST, 1 tab, PO, Daily Start Date: 06/19/23 Status: Ordered Pulmicort Flexhaler Start: 06/19/23 13:53:00 EST Start Date: 06/19/23 Status: Ordered QUEtiapine 200 mg oral tablet Start: 06/22/23 17:20:00 EST, 1 tab, PO, Daily, Disp# 90 tab, Refills: 3, Pharmacy: [facility]/pharmacy #[id number] Start Date: 06/22/23 Status: Ordered Trelegy Ellipta 200 mcg-62.5 mcg-25 mcg/inh inhalation powder Start: 07/08/22 11:13:00 EDT Start Date: 07/08/22 Status: Ordered Zaroxolyn 2.5 mg oral tablet Start: 06/24/23 9:06:00 EST, See Instructions, Disp# 15 tab, Refills: 1, 1 tab QOD, Pharmacy: [facility] #[id number] Start Date: 06/24/23 Status: Ordered Mental Status 06/30/23 Barriers to Learning one year None evide nt Mandatory Health Literacy Documentation Yes Health Literacy Communication Barriers N ever Primary Language Estonian Problem List Condition Confirmation Course Effective Dates [...] Dates Health Status Cl inical Service Informant Diabetes Discharge Diagnosis 06/30/23 Non-Specified Opioid use disorder in remission Discharge Diagnosis 06/30/23 Dyspnea on minimal exertion Discharge Diagnosis 06/30/23 Procedures Procedure Date Related Diagnosis Body Site Status Bone marrow biopsy 2013 [facility] Vital Signs Most recent to oldest [Reference Range]: 1 Height 157.8 cm (06/30/23 1:47 PM) Patient Weight 95.2 kg (06/30/23 1:47 PM) Body Mass Index 38.23 kg/m2 (06/30/23 1:47 PM) Temperature [36.5-37.9 DegC] 36.8 DegC (06/30/23 1:43 PM) Blood Pressure 120/76mmHg (06/30/23 1:43 PM) BP Location # 1 Right Arm (06/30/23 1:43 PM) Social History Social History Type Response Smoking Status Current every day vivien urena smoker Sex Female FCM Outpt Note * MD Whalen Adedoyin: PERFORM MD Whalen Adedoyin: PERFORM Event Display: FCM Outpt Note Authored Date: [id number] Chief Complaint Here med check/refill. History of Present Illness [id number] year-oldwdewaynewhwendy presents todayfor continued follow-upof her chronic lower back pain, for which she is managed on Suboxone strips. Med Refill (Opioid Use Disorder) -Last seen 06/04 for med refill. Was prescribed Suboxone. Was scheduled for sports med visit 06/18 forfurther evaluation of chronic low back painbut appears to have no-showed that visit. [facility] could not pick her up because of the bad weather and the road had not been plowed on the day. She has yet to reschedule. -Today, she is here for a refill of Suboxone. She continues to complain that it does not relieve her pain. She continues to use heat and ice but she still reports "the same amount of pain." Dyspnea on Exertion -She complains of pedal edema, swelling of her fingers, foot tightness, dyspnea on exertion. -She was seen by Mela Barboza and prescribed metolazone 2.5 mg QOD. Already takes Bumex 2 mg daily. -ROS+ orthopnea, recent sick contact. Denies URI sxs. Review of Systems See HPI. Physical Exam Vitals & Measurements T:36.8C BP:120/76 SpO2:90% HT:157.8cm WT:95.200kg(Dosing) WT:95.2kg BMI:38.23 PHQ2 Data(Data Documented on:06/30/2023 13:42) Emotional health assessment NEGATIVE General:Alert and orientedindividual in no acute distress. Cardiovascular:Regular rate and rhythm. No murmurs or gallops. Respiratory:Slight wheeze on the left. Labored respirations. Basilar rales. Psych:Mood-affect congruence. Reports no SI/HI. Speech is of normal pace and content. Assessment/Plan 1.Opioid use disorder in remission Chronic;uncomplicated;not at goal -Dr. Gracia will send Suboxone prescription to pharmacy. -Appt with pain medicine "pending." Unsure with whom. No record of appt. in either [facility] ([facility]) or [facility] ([facility]) EMRs. 2.Dyspnea on minimal exertion Acute;complicated;not at goal -HPI, exam findings consistent with acute fluid overload. SpO2 also dropped to 84% on walking exam.Given her hx of CHF, likely presentation of acute exacerbation. -Pt. already on multiple diuretics and appears on the verge of acute decompensation. -Recommended immediate trip to the ER for IV diuresis, supportive management. Pt. declined to go immediately as she wants to gather her medications from home before going to ER. -Explained the risks of acute decompensation at home to pt, who expressed understanding of the risks. She agrees to go the ER once she's gathered her medications and secured her belongings at home. Attestation Patient seen and examined in concert with Dr. Whalen, agree with history and physical documented above. Advised patient to go to emergency department, patient refuses transportation there at the moment, states she will go in a couple hours with her sister. Discussed concerns about hypoxia on am bulation,patient with multiple admissionsthis year forexacerbations of heart failure and COPD. Will continue patient's buprenorphine, CSA on file, PDMP checked and appropriate, next refill sent. Plan reviewed in detail and patient understanding. Problem List/Past Medical History Ongoing Anxiety Cataract Chemotherapy-induced nausea Chronic eczema Chronic low back pain Chronic prescription opiate use Congestive heart failure COPD with exacerbation Diabetes Dyspnea on minimal exertion History of ovarian cancer History of pulmonary embolus (PE) Insomnia Lower extremity edema Multiple myeloma Opioid use disorder in remission Plasma cell myeloma Seasonal allergies Tobacco user Weight disorder Historical Bipolar disease, chronic Procedure/Surgical History Bone marrow biopsy| Service Date: 2013 Medications ALPRAZolam(ALPRAZolam 0.5 mg oral tablet), 0.5 mg= 1 tab, PO, bid, PRN, 2 refills budesonide(Pulmicort Flexhaler) bumetanide(bumetanide 2 mg oral tablet), See Instructions, 3 refills buprenorphine-naloxone(buprenorphine-naloxone 8 mg-2 mg sublingual film), 1 patch, SL, bid diabetes supplies(Dexcom G6 Sensor Kit), See Instructions, 5 refills diabetes supplies(Accu-Chek FastClix Lancets), See Instructions enoxaparin(enoxaparin 150 mg/mL injectable solution), 150 mg= 1 mL, subQ, Daily, 11 refills fluticasone/umeclidinium/vilanterol(Trelegy Ellipta 200 mcg-62.5 mcg-25 mcg/inh inhalation powder) insulin aspart(NovoLOG FlexPen 100 units/mL injectable solution), 10 unit, subQ, ac, 5 refills insulin glargine(Lantus Solostar Pen), 55 unit, subQ, Daily levalbuterol(levalbuterol CFC free 45 mcg/inh inhalation aerosol), 1 puff, inhaled, q4h, PRN metOLazone(Zaroxolyn 2.5 mg oral tablet), See Instructions, 1 refills ondansetron(ondansetron 4 mg oral tablet, disintegrating), 4 mg= 1 tab, PO, q8h, PRN, 1 refills potassium chloride(Potassium Chloride (Eqv-K-Tab) 20 mEq oral tablet, extended release), 1 tab, PO,tid, 3 refills predniSONE(predniSONE 20 mg oral tablet), 20 mg= 1 tab, PO, Daily QUEtiapine(QUEtiapine 200 mg oral tablet), 200 mg= 1 tab, PO, Daily, 3 refills unlisted medication(DEXCOM G6 SENSOR), See Instructions Allergies Phenergan (Moderate)Itchy, Rash Benedryl Allergy Sinus codeine iodine topical metFORMINAngioedema oral contrast dyeSOB - Shortness of breath shellfish Social History Smoking Status Current every day light smoker Immunizations Vaccine Date Status SARS-CoV-2 (COVID-19) mRNA BNT-162b2 vax 04/06/2021 Recorded Comments : 2023-03-11: Historical information-source unspecified SARS-CoV-2 (COVID-19) mRNA BNT-162b2 vax 09/02/2020 Recorded Comments : 2023-03-11: Historical information-source unspecified SARS-CoV-2 (COVID-19) mRNA BNT-162b2 vax 08/08/2020 Recorded Comments : 2023-03-11: Historical information-source unspecified Recommendations Health Maintenance Pending(in the next year) OverDue Diabetic Eye Exam due11/05/15and every 366day Adult Influenza Vaccine due10/24/22and every 1year Due Adult COVID-19 Vaccination due06/30/23Unknown Frequency Adult Social Determinants of Health Screening due06/30/23Unknown Frequency Adult Tdap/Td Vaccine due06/30/23Unknown Frequency Breast Cancer Screening due06/30/23nown Frequency Cervical Cancer Screening due06/30/23nown Frequency Colorectal Cancer Screening due06/30/23nown Frequency Diabetes Management A1c due06/30/23Unknown Frequency Diabetes Nephropathy Management due06/30/23nown Frequency Lipid Screening due06/30/23Unknown Frequency Pneumococcal Vaccine Adults and Adolescents with Chronic Illness due06/30/23One-time only Shingles Vaccine due06/30/23One-time only Satisfied(in the past 1 year) Satisfied Body Mass Index on06/30/23.Satisfied by GEETA Pearce Paula Electronic Signature on File Electronically Reviewed/Signed by: Anais Whalen MD Author Signature Dt/Tm:06/30/2023 02:53 PM Resident Department of Family Medicine Electronically Reviewed/Signed by: Shaniqua Gracia D.O. Cosigner Signature Dt/Tm: 06/30/2023 04:16 PM Department of Family Medicine AO Patient Care team information Care Team Personnel Name: ELENA Barboza Kimberly A Position: Physician Asst Exmpt - Family Med Member Role: Primary Care Provider Address: Address: [address] [facility] [address] [place] [id number] [place] Name: MARGARET Dunn Jo Ann M Position: Nurse Pract - Hem/Onc Member Role: Lifetime Relationship Address: Address: [address] [place] [id number] [place] Care Team Related Persons Name: MO SAMUEL Address: [facility]
--- OUTSIDE RECORDS SUMMARY | 2023-07-29 04:45 | External Medical Summary | Continuity of Care Document ---
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 Role Phone Radha Barboza Primary Care Physician [phone] Encounter [facility] [id number] Date(s): 07/08/23 - 07/08/23 [facility] [address] [facility] 207 [facility] 1850 [facility] 207 [place] [address] [phone] Encounter Diagnosis Diabetes(Discharge Diagnosis) - 07/08/23 COPD without exacerbation(Discharge Diagnosis) - 07/08/23 Congestive heart failure(Discharge Diagnosis) - 07/08/23 Discharge Disposition: Home or Self Care Attending Physician: ELENA Barboza Kimberly A Allergies, Adverse Reactions, Alerts Substance Reaction Severity Status codeine Active iodine topical Active Phenergan Itchy Rash Moderate Active shellfish Active Benedryl Allergy Sinus Activ e oral contrast dye SOB - Shortness of breath Active metFORMIN Angioedema Active Immunizations Given and Recorded Vaccine Date [...] 102 lancet, Refills: 0, 32G x , [id number] Start Date: 06/30/23 Status: Ordered ALPRAZolam 0.5 mg oral tablet Start: 06/24/23 9:04:00 EST, 1 tab, PO, bid, Disp# 90 tab, Refills: 2, Make take an extra tablet for acute panic attacks. Max 3/day, PRN: as needed for anxiety, [id number] Start Date: 06/24/23 Status: Ordered bumetanide 2 mg oral tablet Start: 03/09/23 22:51:00 EST, See Instructions, Disp# 360 tab, Refills: 3, TAKE 2 TABLETS BY MOUTH IN THE MORNING AND 2 TABLET AT LUNCHTIME, Pharmacy: [facility] #[id number] Start Date: 03/09/23 Status: Ordered buprenorphine-naloxone 8 mg-2 mg sublingual film Start: 06/30/23 16:21:00 EST, 1 patch, SL, bid, Disp# 60 patch, Refills: 0, Pharmacy: [facility] #[id number] Start Date: 06/30/23 Stop Date: 07/30/23 Status: Ordered DEXCOM G6 SENSOR Start: 06/26/23 9:55:00 EST, DEXCOM G6 SENSOR, See Instructions, Disp# 3 unknown unit, Refills: 1, USE DIRECTED BY MD TO TEST GLUCOSE 4-5 TIMES A DAY, Pharmacy [id number] Start Date: 06/26/23 Status: Ordered Dexcom G6 Sensor Kit Start: 06/24/23 9:01:00 EST, See Instructions, Disp# 1 kit, Refills: 5, Check BS up to three times daily, Note to Pharmacy: Uncontrolled DM2 (E11.65), Pharmacy: [facility]/pharmacy #[id number] Start Date: 06/24/23 Status: Ordered enoxaparin 150 mg/mL injectable solution Start: 06/24/23 9:03:00 EST, 1 mL, subQ, Daily, Disp# 30 mL, Refills: 11, Pharmacy: [facility]/pharmacy #[id number] Start Date: 06/24/23 Status: Ordered [...] ac, Disp# 15 mL, Refills: 5, Pharmacy: [facility]/pharmacy #[id number] Start Date: 02/17/23 Status: Ordered ondansetron 4 mg oral tablet, disintegrating Start: 03/11/23 12:29:00 EST, 1 tab, PO, q8h, Disp# 30 tab, Refills: 1, PRN: as needed for nausea/vomiting, Pharmacy: [facility]/pharmacy #[id number] Start Date: 03/11/23 Status: Ordered Ozempic (0.25 mg or 0.5 mg dose) 2 mg/3 mL subQ pen Start: 07/08/23 14:47:00 EDT, See Instructions, subQ, q7days, Disp# 3 mL, Refills: 1, Inject 0.25 mg every 7 days X 4 weeks then increase to 0.5 mg SQ every 7 days., Pharmacy: [facility]/pharmacy #[id number], Supply Start Date: 07/08/23 Status: Ordered Potassium Chloride (Eqv-K-Tab) 20 mEq oral tablet, extended release Start: 06/19/23 14:47:00 EST, 1 tab, PO, tid, Disp# 90 tab, Refills: 3, Pharmacy: [facility]/pharmacy #[id number] Start Date: 06/19/23 Stop Date: 10/17/23 Status: Ordered predniSONE 20 mg oral tablet Start: 06/19/23 13:53:00 EST, 1 tab, PO, Daily Start Date: 06/19/23 Status: Ordered Pulmicort Flexhaler Start: 06/19/23 13:53:00 EST Start Date: 06/19/23 Status: Ordered QUEtiapine 200 mg oral tablet Start: 06/22/23 17:20:00 EST, 1 tab, PO, Daily, Disp# 90 tab, Refills: 3, Pharmacy: [facility]/pharmacy #[id number] Start Date: 06/22/23 Status: Ordered Trelegy Ellipta 200 mcg-62.5 mcg-25 mcg/inh inhalation powder Start: 07/08/22 11:13:00 EDT Start Date: 07/08/22 Status: Ordered UltiCare Pen Needle 32G x 4mm Start: 07/08/23 14:51:00 EDT, See Instructions, Disp# 100 pen_needle, Refills: 1, Use three times daily, Note to Pharmacy: E11.65, Pharmacy: [facility]/pharm[facility] #[id number] Start Date: 07/08/23 Status: Ordered Zaroxolyn 2.5 mg oral tablet Start: 06/24/23 9:06:00 EST, See Instructions, Disp# 15 tab, Refills: 1, 1 tab QOD, Pharmacy: [facility] #[id number] Start Date: 06/24/23 Status: Ordered Mental Status 07/08/23 Barriers to Learning one year None evide nt Mandatory Health Literacy Documentation Yes Health Literacy Communication Barriers N ever Primary Language [place] Problem List Condition Confirmation Course Effective Dates [...] Dates Health Status Clinical Service Informant COPD without exacerbation Discharge Diagnosis 07/08/23 Diabetes Discharge Diagnosis 07/08/23 Congestive heart failure Discharge Diagnosis 07/08/23 Procedures Procedure Date Related Diagnosis Body Site Status Bone marrow biopsy 2013 [facility] Vital Signs Most recent to oldest [Reference Range]: 1 Patient Weight 93.9 kg (07/08/23 2:27 PM) Temperature [36.5-37.9 DegC] 37.0 DegC (07/08/23 2:27 PM) Heart Rate 104 bpm (07/08/23 2:27 PM) Respiratory Rate 18 br/min (07/08/23 2:27 PM) Blood Pressure 118/78mmHg (07/08/23 2:27 PM) Cuff Pulse Pressure 40 mmHg (07/08/23 2:27 PM) Social History Social History Type Response Smoking Status Current every day vivien ght smoker Sex Female Patient Care team information Care Team Personnel Name: ELENA Barboza Kimberly A Position: Physician Asst Exmpt - Family Med Member Role: Primary Care Provider Address: Address: [address] [address] Name: MARGARET Dunn Jo Ann M Position: Nurse Pract - Hem/Onc Member Role: Lifetime Relationship Address: Address: [address] [place] [id number] Care Team Related Persons Name: MO SAMUEL Address: home [place]
--- OUTSIDE RECORDS SUMMARY | 2023-07-29 04:45 | External Medical Summary | Continuity of Care Document ---
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 Role Phone Radha Barboza Primary Care Physician [phone] [id number] Date(s): 06/30/23 - 06/30/23 [facility] [address] [facility] [address] [facility] Medical [facility] [address] [facility] [address] [place] [address] [phone] Encounter Diagnosis Hypokalemia(Final) - Discharge Disposition: Home or Self Care [...] 102 lancet, Refills: 0, 32G x , Pharmacy:[facility]/pharmacy #[id number] Start Date: 06/30/23 Status: Ordered ALPRAZolam 0.5 mg oral tablet Start: 06/24/23 9:04:00 EST, 1 tab, PO, bid, Disp# 90 tab, Refills: 2, Make take an extra tablet for acute panic attacks. Max 3/day, PRN: as needed for anxiety, [id number] Start Date: 06/24/23 Status: Ordered bumetanide 2 mg oral tablet Start: 03/09/23 22:51:00 EST, See Instructions, Disp# 360 tab, Refills: 3, TAKE 2 TABLETS BY MOUTH IN THE MORNING AND 2 TABLET AT LUNCHTIME, Pharmacy: [facility]/pharmacy #[id number] Start Date: 03/09/23 Status: Ordered buprenorphine-naloxone 8 mg-2 mg sublingual film Start: 06/30/23 16:21:00 EST, 1 patch, SL, bid, Disp# 60 patch, Refills: 0, [id number] Start Date: 06/30/23 Stop Date: 07/30/23 Status: Ordered DEXCOM G6 SENSOR Start: 06/26/23 9:55:00 EST, DEXCOM G6 SENSOR, See Instructions, Disp# 3 unknown unit, Refills: 1, USE DIRECTED BY MD TO TEST GLUCOSE 4-5 TIMES A DAY, Pharmacy [facility] STORE [id number] Start Date: 06/26/23 Status: Ordered Dexcom G6 Sensor Kit Start: 06/24/23 9:01:00 EST, See Instructions, Disp# 1 kit, Refills: 5, Check BS up to three times daily, Note to Pharmacy: Uncontrolled DM2 (E11.65), Pharmacy: [facility]/pharmacy #[id number] Start Date: 06/24/23 Status: Ordered enoxaparin 150 mg/mL injectable solution Start: 06/24/23 9:03:00 EST, 1 mL, subQ, Daily, Disp# 30 mL, Refills: 11, Pharmacy: [facility]/pharmacy #[id number] Start Date: 06/24/23 Status: Ordered Lantus [...] 15 mL, Refills: 5, Pharmacy: [facility]/pharmacy #[id number] Start Date: 02/17/23 Status: Ordered ondansetron 4 mg oral tablet, disintegrating Start: 03/11/23 12:29:00 EST, 1 tab, PO, q8h, Disp# 30 tab, Refills: 1, PRN: as needed for nausea/vomiting, Pharmacy: [facility]/pharmacy #[id number] Start Date: 03/11/23 Status: Ordered Potassium Chloride (Eqv-K-Tab) 20 mEq oral tablet, extended release Start: 06/19/23 14:47:00 EST, 1 tab, PO, tid, Disp# 90 tab, Refills: 3, [id number] Start Date: 06/19/23 Stop Date: 10/17/23 Status: Ordered predniSONE 20 mg oral tablet Start: 06/19/23 13:53:00 EST, 1 tab, PO, Daily Start Date: 06/19/23 Status: Ordered Pulmicort Flexhaler Start: 06/19/23 13:53:00 EST Start Date: 06/19/23 Status: Ordered QUEtiapine 200 mg oral tablet Start: 06/22/23 17:20:00 EST, 1 tab, PO, Daily, Disp# 90 tab, Refills: 3, [id number] Start Date: 06/22/23 Status: Ordered Trelegy Ellipta 200 mcg-62.5 mcg-25 mcg/inh inhalation powder Start: 07/08/22 11:13:00 EDT Start Date: 07/08/22 Status: Ordered Zaroxolyn 2.5 mg oral tablet Start: 06/24/23 9:06:00 EST, See Instructions, Disp# 15 tab, Refills: 1, 1 tab QOD, Pharmacy: [facility]/pharmacy #[id number] Start Date: 06/24/23 Status: Ordered Problem List Condition Confirmation Course [...] Bone marrow biopsy 2013 [facility] Results Laboratory List Name Date Comprehensive Metabolic Panel (COMP META B PANEL) 06/30/23 Most recent to oldest [Reference Range]: 1 eGFR CKD-EPI [>60 mL/min/1.73 m2] 56 mL/ min/1.73 m2 *LOW* (06/30/23 1:11 PM) Estimated CrCl 56.67 mL/min (06/30/23 7:27 PM) Anion Gap [5-14 mmol/L] 11 mmol/L (06/30/23 1:11 PM) Alb [3.5-5.2 g/dL] 3.8 g/dL (06/30/23 1:11 PM) Alk Phos [35-115 unit/L] 147 unit/L *HI* (06/30/23 1:11 PM) ALT [0-33 unit/L] 14 unit/L (06/30/23 1:11 PM) AST [0-32 unit/L] 13 unit/L (06/30/23 1:11 PM) BUN [6-23 mg/dL] 28 mg/dL *HI* (06/30/23 1:11 PM) Ca [8.4-10.2 mg/dL] 9.4 mg/dL (06/30/23 1:11 PM) Cl- [98-107 mmol/L] 88 mmol/L *LOW* (06/30/23 1:11 PM) HCO3 [22-29 mmol/L] 38 mmol/L *HI* (06/30/23 1:11 PM) Cret [0.60-1.00 mg/dL] 1.11 mg/dL *HI* (06/30/23 1:11 PM) Glu [74-109 mg/dL] 252 mg/dL 1 *HI* (06/30/23 1:11 PM) K [3.5-5.1 mmol/L] 3.5 mmol/L (06/30/23 1:11 PM) Na [136-145 mmol/L] 137 mmol/L (06/30/23 1:11 PM) T Bili [0.0-1.2 mg/dL] 0.2 mg/dL (06/30/23 1:11 PM) Prot [6.4-8.3 g/dL] 6.9 g/dL (06/30/23 1:11 PM) 1Result Comment: ADA recommendation for FASTING Serum/Plasma Glucose: Normal: 70-100 mg/dL Prediabetes: 100-125 mg/dL Diabetes: 126 mg/dL or higher Social History Social History Type Response Smoking Status Current every day li ght smoker Sex Female Patient Care team information Care Team Personnel Name: ELENA Barboza, Radha Bhatia Position: Physician Asst Exmpt - Family Med Member Role: Primary Care Provider Address: Address: [address] [place] [id number] Name: MARGARET Dunn Jo Ann M Position: Nurse Pract - Hem/Onc Member Role: Lifetime Relationship Address: Address: [address] [place] [id number] [place] Care Team Related Persons Name: MO SAMUEL Address: [facility]
[2023-07-29] MEDS: DOXYCYCLINE HYCLATE 100 MG in DEXTROSE 5% MINI-B 100 ML IV SCH (05:42)
[2023-07-29 06:16] LABS: Basophils # (auto) 0.03 K/uL (0.00-0.20); Basophils % (auto) 0.2 %; Eosinophils # (auto) 0.02 K/uL (0.00-0.50); Eosinophils % (auto) 0.1 %; Hematocrit (blood only) 44.8 % (37.0-47.0); Hemoglobin 14.5 g/dl (12.0-16.0); Immature Granulocytes # (auto) 0.08 K/uL (0.01-0.20); Immature Granulocytes % (auto) 0.5 %; Lymphocytes % (auto) 15.8 %; Mean Corpuscular Hemoglobin 25.9 pg (25.0-34.0); Mean Corpuscular Hgb Conc 32.4 g/dL (32.0-36.0); Mean Corpuscular Volume 80.1 fL (80.0-100.0); Mean Platelet Volume 9.5 fL (9.4-12.4); Monocytes # (auto) 0.64 K/uL (0.11-0.59); Neutrophils # (auto) 12.55 K/uL (1.40-6.50); Neutrophils % (auto) 79.4 %; Platelet Count 331 K/uL (130-400); RDW Coefficient of Variation 14.9 % (11.5-14.5); RDW Standard Deviation 43.1 fL (36.4-46.3); Red Blood Count 5.59 M/uL (4.20-5.40); White Blood Count 15.82 K/ul (4.8-10.8)
[2023-07-29 06:21] LABS: Prothrombin Time 11.1 Seconds (9.0-12.0)
[2023-07-29 07:20] LABS: BUN Creatinine Ratio 26.9 (10-20); Calcium 9.5 mg/dl (8.6-10.3); Est GFR (African American) 66.7 ml/min; Est GFR (Non-African American) 57.5 ml/min; Magnesium 2.4 mg/dl (1.7-2.4); Potassium 3.4 mmol/L (3.5-5.1)
[2023-07-29] MEDS: BUMETANIDE 1 MG TAB PO SCH (08:41)
[2023-07-29] MEDS: ENOXAPARIN 150 MG/ML SYR SQ SCH (08:41)
[2023-07-29] MEDS: metOLazone 5 MG TABLET PO SCH (08:41)
[2023-07-29] MEDS: methylPREDNISolone 40 MG in SYRINGE 0 ML IV SCH (08:42)
[2023-07-29] MEDS ORDERED: methylPREDNISolone 125 MG/2 ML VIAL IV SCH (09:00)
[2023-07-29] MEDS: LANTUS PER UNIT CHARGE SC SCH ×2 (09:28→20:48)
--- NOTE | 2023-07-29 10:01 | Pharmacy Report ---
Pharmacy Glycemic Short Note 2 - Date of Service July 29, 2023 - Glycemic Short BSG Results (Last 24 hours): 07/28/23 07/28/23 07/28/23 15:49 18:18 20:35 Glucose 133 H POC Glucose 246 H 364 H* 07/28/23 07/29/23 07/29/23 20:36 00:00 04:59 Glucose POC Glucose 409 H* 295 H 246 H 07/29/23 07/29/23 05:17 08:27 Glucose 219 H POC Glucose 176 H OUTPATIENT ANTIDIABETIC REGIMEN: * Lantus 60units SQ daily * Novolog 10units SQ AC * semaglutide 0.25mg SQ weekly HbA1C: 10.5% (05/08/23) ASSESSMENT: * Pt is a 63 year old female admitted with a COPD exacerbation. History of DM2 on insulin therapy at home. Pharmacy consulted to assist with glycemic management. * BSGs elevated upon admission at [phone]/dL. Received 60 units of Lantus at home yesterday AM and 20 units NPH last evening. Received 19 units of bolus insulin yesterday. * Diet ordered, methylprednisolone 40mg IV BID switched to prednisone 40mg PO daily starting tomorrow. * Will resume home Lantus 60 units qAM (additional 10 units at lunch) while on steroids and add an HS basal scale depending on BSG. Novolog severe stress scale. PLAN FOR INPATIENT GLYCEMIC CONTROL: * Hold outpatient oral diabetes medications * Basal insulin * Lantus 60 units SQ qAM + HS scale depending on BSG * Bolus insulin * NovoLog per scale ACHS or Q6hrs while NPO * Goal Range: Low 110 mg/dL - High 140 mg/dL * Correction Factor: 15 mg/dL/unit * Nutritional / Prandial insulin per carb ratio of 1 unit per 6 grams CHO consumed
[2023-07-29] MEDS: POTASSIUM CHLORIDE CRTAB 20 MEQ TABCR PO STA (11:27)
[2023-07-29] MEDS: LANTUS PER UNIT CHARGE SC ONE (13:29)
[2023-07-29] MEDS: ALPRAZolam 0.5 MG TABLET PO SCH (13:57)
[2023-07-29] MEDS: DOXYCYCLINE HYCLATE 100 MG CAP PO SCH (18:13)
--- NOTE | 2023-07-29 18:14 | Hospitalist Progress Note ---
Date of Service July 29, 2023 Assessment & Plan (1) COPD exacerbation: Plan: 63-year-old woman with severe COPD, ongoing tobacco abuse, chronic diastolic heart failure admitted with acute exacerbation of COPD no evidence of pneumonia based on clear chest x-ray, negative procalcitonin. does have leukocytosis continue steroids changed to prednisone 40 mg daily continue antibiotics change doxycycline to 100 mg p.o. twice daily x 5d -continue bronchodilators - does not have prescription for oxygen during the daytime though has been needing it and needs portable device, uses nocturnal O2 for history of chronic respiratory failure, suspected ELEUTERIO/OHS not on CPAP - obtain two-step test prior to discharge asterixis earlier in the week is likely related to hypercarbia appears to have improved ABG last night without respiratory acidosis or significant hypercarbia, CO2 improved on BMP today fine tremor today is likely exacerbated by albuterol (2) Hypokalemia: Plan: -Noted to be 2.7 in the ED - improved after replacement mildly low still 3.4, ordered potassium oral 20 mEq (3) Tobacco abuse: Plan: -Continue to stress the importance of cessation -Patient seems motivated to quit due to the severity of her symptoms this week -Denied need for nicotine patch or gum at this time (4) Chronic anticoagulation: Plan: -Continue Lovenox for hx of PE -Denies recently missed doses, no chest pain -suspicion for acute PE low at this time (5) Diabetes: Plan: -Monitor BSG ACHS, goal is 110-160 while on steroids - continue glargine and Premeal aspart -Pharmacy glycemic consult placed and insulins were adjusted (6) Obesity hypoventilation syndrome: Plan: -Continue prn O2 -Continue to stress importance of ELEUTERIO testing on discharge (7) Opiate dependence: Plan: -Continue Suboxone (8) Heart failure with preserved ejection fraction: Plan: -Currently euvolemic on exam -Continue BID Bumetanide -Continue metolazone on MWF - if hypoxia and wheezing persist consider trial of increased diuresis Plan anxiety, benzodiazepine dependencereviewed PDMP confirmed Xanax dosing, ordered 3 times daily chronic pain on twice daily Suboxonecontinued DVT prophylaxischronically on therapeutic dose Lovenox Admission and Anticipated Discharge Date Admission Date: July 28, 2023 Subjective reports no change in shortness of breath, wheezing, increased cough since admission had large amplitude tremor earlier this week and was dropping things xanax recently increased to tid as outpatient recent nausea on semaglutide though tolerating edema and fluid balance dramatically better on 3 times weekly metolazone Physical Exam 2 Physical Exam: PHYSICAL EXAMINATION Last 24h vital signs reviewed, see documentation in flowsheet General: comfortable appearing, no distress, sitting up in chair HEENT: Normocephalic, atraumatic, pupils round and equal, sclerae anicteric, no conjunctival injection, moist mucus membranes Lungs: increased respiratory effort but not laboring. tight and diminished bilaterally with expiratory wheezes and scattered coarse crackles in bases Heart: Regular rate and rhythm, no murmurs. No JVD but sitting upright Abdomen: Soft, nontender, nondistended. Bowel sounds present. Extremities: Warm, dry, well-perfused. trace extremity edema. Neuro: Alert and oriented x 4, fine tremor bilaterally with minimal asterixis,face symmetric, moves 4 extremities well Psych: anxious affect and mood, normal behavior Results & Data Results & Data Vital Signs (Past 12 Hours) Vital Signs Temp Pulse Pulse Resp BP Pulse Ox O2 Del Method 07/29/23 15:43 36.5 C 93 H 16 106/69 96 Room Air 07/29/23 15:34 105 H 07/29/23 12:28 96 H 18 95 Nasal Cannula 07/29/23 12:02 36.8 C 73 16 120/73 98 Room Air 07/29/23 07:59 36.5 C 93 H 16 107/71 93 Nasal Cannula 07/29/23 07:30 95 H 07/29/23 07:19 92 H 20 94 Nasal Cannula O2 Flow Rate 07/29/23 15:43 07/29/23 15:34 07/29/23 12:28 4 07/29/23 12:02 07/29/23 07:59 3 07/29/23 07:30 07/29/23 07:19 3 Laboratory Results 07/29/23 05:17 07/29/23 12:35 PG Care Time/CCT Total # of Minutes Spent Total Time Spent with Patient: Total time spent is greater than 50% in coordination of care (as documented) at patient's floor/unit and/or counseling patient: Coding Level of Care Code 15767 SUB INP/OBS CARE 2/35MIN Diagnoses COPD exacerbation J44.1 Hypokalemia E87.6 Tobacco abuse Z72.0 Chronic anticoagulation Z79.01 Diabetes E11.9 Obesity hypoventilation syndrome E66.2 Opiate dependence F11.20 Heart failure with preserved ejection fraction I50.30
[2023-07-30] MEDS: INSULIN ASPART PER UNIT CHARGE SC SCH (00:29)
[2023-07-30 06:49] LABS: Basophils # (auto) 0.06 K/uL (0.00-0.20); Basophils % (auto) 0.4 %; Eosinophils # (auto) 0.27 K/uL (0.00-0.50); Eosinophils % (auto) 1.7 %; Hematocrit (blood only) 45.2 % (37.0-47.0); Immature Granulocytes # (auto) 0.07 K/uL (0.01-0.20); Immature Granulocytes % (auto) 0.4 %; Lymphocytes # (auto) 4.35 K/uL (1.20-3.40); Lymphocytes % (auto) 27.5 %; Mean Corpuscular Hemoglobin 26.3 pg (25.0-34.0); Mean Corpuscular Hgb Conc 33.2 g/dL (32.0-36.0); Mean Corpuscular Volume 79.2 fL (80.0-100.0); Mean Platelet Volume 9.5 fL (9.4-12.4); Monocytes # (auto) 0.89 K/uL (0.11-0.59); Monocytes % (auto) 5.6 %; Neutrophils # (auto) 10.17 K/uL (1.40-6.50); Neutrophils % (auto) 64.4 %; Platelet Count 340 K/uL (130-400); RDW Standard Deviation 42.5 fL (36.4-46.3); Red Blood Count 5.71 M/uL (4.20-5.40); White Blood Count 15.81 K/ul (4.8-10.8)
[2023-07-30 07:09] LABS: BUN Creatinine Ratio 41.8 (10-20); Calcium 9.9 mg/dl (8.6-10.3); Creatinine Clr Calc Pharmacy 61.4 ml/min; Est GFR (African American) 71.7 ml/min; Est GFR (Non-African American) 61.8 ml/min; Magnesium 1.8 mg/dl (1.7-2.4); Potassium 2.9 mmol/L (3.5-5.1)
[2023-07-30 07:17] LABS: Prothrombin Time 11.3 Seconds (9.0-12.0)
[2023-07-30] MEDS: predniSONE 20 MG TAB PO SCH (07:37)
[2023-07-30] MEDS: POTASSIUM CHLORIDE CRTAB 20 MEQ TABCR PO SCH (09:05)
[2023-07-30] MEDS: MAGNESIUM SULFATE / D5W 1 GM/100 ML BAG IV ONE (09:06)
[2023-07-30 10:05] LABS: Appearance Urine Clear (Clear); Bilirubin Urine Negative (Negative); Blood Urine Negative (Negative); Color Urine Yellow; Glucose Urine UA Negative (Negative); Ketones Urine Negative (Negative); Leukocyte Esterase Urine Negative (Negative); Nitrite Urine Negative (Negative); Protein Urine Negative (Negative); Specific Gravity Urine 1.008 (1.000-1.030); Urobilinogen Urine Negative (Negative); pH Urine 7.5 (4.5-7.5)
--- NOTE | 2023-07-30 12:46 | Pharmacy Report ---
Pharmacy Glycemic Short Note 2 - Date of Service July 30, 2023 - Glycemic Short BSG Results (Last 24 hours): 07/29/23 07/29/23 07/29/23 12:35 17:14 17:14 Glucose 256 H POC Glucose 305 H* 296 H 07/29/23 07/30/23 07/30/23 20:38 00:14 04:06 Glucose POC Glucose 252 H 207 H 176 H 07/30/23 07/30/23 07/30/23 05:31 08:06 12:07 Glucose 112 H POC Glucose 107 H 135 H OUTPATIENT ANTIDIABETIC REGIMEN: * Lantus 60units SQ daily * Novolog 10units SQ AC * semaglutide 0.25mg SQ weekly HbA1C: 10.5% (05/08/23) ASSESSMENT: 07/29: * BSGs yesterday were [phone] mg/dl. Fasting BSG today was 112 mg/dl. * Patient received total 151 units of insulin yesterday (80 units basal and 71 units bolus). * Basal dose continued with 60 units in AM and a scale at HS if BSG above 180 mg/dl. * Novolog carb ratio tightened slightly today AM for post-prandial coverage. 07/28: * Pt is a 63 year old female admitted with a COPD exacerbation. History of DM2 on insulin therapy at home. Pharmacy consulted to assist with glycemic management. * BSGs elevated upon admission at [phone]/dL. Received 60 units of Lantus at home yesterday AM and 20 units NPH last evening. Received 19 units of bolus insulin yesterday. * Diet ordered, methylprednisolone 40mg IV BID switched to prednisone 40mg PO daily starting tomorrow. * Will resume home Lantus 60 units qAM (additional 10 units at lunch) while on steroids and add an HS basal scale depending on BSG. Novolog severe stress scale. PLAN FOR INPATIENT GLYCEMIC CONTROL: * Hold outpatient oral diabetes medications * Basal insulin * Lantus 60 units SQ qAM + HS scale (0 or 10 units) depending on BSG * Bolus insulin * NovoLog per scale ACHS or Q6hrs while NPO * Goal Range: Low 110 mg/dL - High 140 mg/dL * Correction Factor: 15 mg/dL/unit * Nutritional / Prandial insulin per carb ratio of 1 unit per 5 grams CHO consumed
--- NOTE | 2023-07-30 18:57 | Hospitalist Progress Note ---
Date of Service July 30, 2023 Assessment & Plan (1) COPD exacerbation: Plan: 63-year-old woman with severe COPD, ongoing tobacco abuse, chronic diastolic heart failure admitted with acute exacerbation of COPD no evidence of pneumonia based on clear chest x-ray, negative procalcitonin. does have leukocytosis continue steroids prednisone 40 mg daily continue antibiotics change doxycycline to 100 mg p.o. twice daily x 5d -continue bronchodilators - does not have prescription for oxygen during the daytime though has been needing it and needs portable device, uses nocturnal O2 for history of chronic respiratory failure, suspected ELEUTERIO/OHS not on CPAP - obtain two-step test prior to discharge asterixis earlier in the week is likely related to hypercarbia appears to have improved ABG last night without respiratory acidosis or significant hypercarbia, CO2 improved on BMP stable today fine tremor is likely exacerbated by albuterol (2) Hypokalemia: Plan: -Noted to be 2.7 in the ED -replaced on admission, back down to 2.9 this AM. Replaced, 3.6 on recheck (3) Tobacco abuse: Plan: -Continue to stress the importance of cessation -Patient seems motivated to quit due to the severity of her symptoms this week -Denied need for nicotine patch or gum at this time (4) Chronic anticoagulation: Plan: -Continue Lovenox for hx of PE -Denies recently missed doses, no chest pain -suspicion for acute PE low at this time (5) Diabetes: Plan: -Monitor BSG ACHS, goal is 110-160 while on steroids - continue glargine and Premeal aspart -Pharmacy glycemic consult placed and insulins were adjusted (6) Obesity hypoventilation syndrome: Plan: -Continue prn O2 -Continue to stress importance of ELEUTERIO testing on discharge (7) Opiate dependence: Plan: -Continue Suboxone (8) Heart failure with preserved ejection fraction: Plan: -Currently euvolemic on exam -Continue BID Bumetanide -Continue metolazone on MWF - if hypoxia and wheezing persist consider trial of increased diuresis Plan anxiety, benzodiazepine dependencereviewed PDMP confirmed Xanax dosing, ordered 3 times daily chronic pain on twice daily Suboxonecontinued DVT prophylaxischronically on therapeutic dose Lovenox Admission and Anticipated Discharge Date Admission Date: July 28, 2023 Subjective feels like breathing is not any better, didn't get relief from neb lung exam improved however Physical Exam 2 Physical Exam: PHYSICAL EXAMINATION Last 24h vital signs reviewed, see documentation in flowsheet General: comfortable appearing, no distress, lying on bed HEENT: Normocephalic, atraumatic, pupils round and equal, sclerae anicteric, no conjunctival injection, moist mucus membranes Lungs: slightly increased respiratory. diminished bilaterally but better air movement with expiratory wheezes and ronchi on L Heart: Regular rate and rhythm, no murmurs. No JVD but sitting upright Abdomen: Soft, nontender, nondistended. Bowel sounds present. Extremities: Warm, dry, well-perfused. trace extremity edema. Neuro: Alert and oriented x 4, fine tremor bilaterally with no asterixis,face symmetric, moves 4 extremities well Psych: anxious affect and mood, normal behavior Results & Data Results & Data Vital Signs (Past 12 Hours) Vital Signs Temp Pulse Pulse Resp BP Pulse Ox O2 Del Method 07/30/23 16:13 37.1 C 100 H 16 110/76 92 Nasal Cannula 07/30/23 15:23 100 H 07/30/23 13:17 101 H 20 92 Room Air 07/30/23 12:23 36.8 C 94 H 15 125/80 91 Room Air 07/30/23 07:34 Nasal Cannula 07/30/23 07:10 83 16 91 Nasal Cannula O2 Flow Rate 07/30/23 16:13 2 07/30/23 15:23 07/30/23 13:17 07/30/23 12:23 07/30/23 07:34 3 07/30/23 07:10 4 Laboratory Results 07/30/23 05:31 07/30/23 14:22 PG Care Time/CCT Total # of Minutes Spent Total Time Spent with Patient: Total time spent is greater than 50% in coordination of care (as documented) at patient's floor/unit and/or counseling patient: Coding Level of Care Code 37257 SUB INP/OBS CARE 2/35MIN Diagnoses COPD exacerbation J44.1 Hypokalemia E87.6 Tobacco abuse Z72.0 Chronic anticoagulation Z79.01 Diabetes E11.9 Obesity hypoventilation syndrome E66.2 Opiate dependence F11.20 Heart failure with preserved ejection fraction I50.30
[2023-07-31] MEDS: ONDANSETRON INJ 2 MG/ML 2 ML VIAL IV STA (06:01)
[2023-07-31 06:16] LABS: Hematocrit (blood only) 49.7 % (37.0-47.0); Hemoglobin 16.3 g/dl (12.0-16.0); Mean Corpuscular Hemoglobin 26.1 pg (25.0-34.0); Mean Corpuscular Hgb Conc 32.8 g/dL (32.0-36.0); Mean Corpuscular Volume 79.5 fL (80.0-100.0); Mean Platelet Volume 9.4 fL (9.4-12.4); Platelet Count 349 K/uL (130-400); RDW Coefficient of Variation 16.2 % (11.5-14.5); RDW Standard Deviation 42.8 fL (36.4-46.3); Red Blood Count 6.25 M/uL (4.20-5.40); White Blood Count 14.74 K/ul (4.8-10.8)
[2023-07-31 06:24] LABS: BUN Creatinine Ratio 40.3 (10-20); Calcium 10.1 mg/dl (8.6-10.3); Creatinine Clr Calc Pharmacy 44.9 ml/min; Est GFR (African American) 49.1 ml/min; Est GFR (Non-African American) 42.4 ml/min; Potassium 3.5 mmol/L (3.5-5.1)
[2023-07-31 07:39] LABS: ALC (manual) 5.31 K/uL (1.2-3.4); Basophils # (manual) 0.29 K/uL (0-0.2); Basophils % (manual) 2 %; Eosinophils # (manual) 0.15 K/uL (0-0.50); Eosinophils % (manual) 1 %; Lymphocytes # (manual) 3.54 K/uL (1.2-3.4); Lymphocytes % (manual) 24 %; Monocytes # (manual) 0.59 K/uL (0.11-0.59); Monocytes % (manual) 4 %; Neutrophils % (manual) 57 %; RBC Morphology Unremarkable; Reactive Lymphocytes # (manual) 1.77 K/uL; Reactive Lymphocytes % (manual) 12 %
[2023-07-31] MEDS: POTASSIUM CHLORIDE CRTAB 20 MEQ TABCR PO SCH (08:09)
[2023-07-31] MEDS: NovoLIN-N (NPH) PER UNIT CHARGE SQ SCH (08:41)
[2023-07-31] MEDS: LACTATED RINGER'S 500 ML IV ONE (10:16)
--- NOTE | 2023-07-31 14:33 | Pharmacy Report ---
Pharmacy Glycemic Short Note 2 - Date of Service July 31, 2023 - Glycemic Short BSG Results (Last 24 hours): 07/30/23 07/30/23 07/31/23 17:16 20:04 05:34 Glucose 133 H POC Glucose 256 H 245 H 07/31/23 07/31/23 08:15 11:56 Glucose POC Glucose 216 H 97 OUTPATIENT ANTIDIABETIC REGIMEN: * Lantus 60units SQ daily * Novolog 10units SQ AC * semaglutide 0.25mg SQ weekly HbA1C: 10.5% (05/08/23) ASSESSMENT: 07/30: * BSGs yesterday were [phone] mg/dl. Fasting BSG today was 133 mg/dl. * Patient received total 121 units of insulin yesterday (70 units basal + 51 units bolus). * Added NPH 20 units (0.3 units/kg, adjusted body wt) daily with Prednisone 40 mg today to help prevent highs later in the evening. * Pre-lunch BSG today was 97 mg/dl, which is below goal. If this continues, may need to loose Novolog carb ratio. 07/29: * BSGs yesterday were [phone] mg/dl. Fasting BSG today was 112 mg/dl. * Patient received total 151 units of insulin yesterday (80 units basal and 71 units bolus). * Basal dose continued with 60 units in AM and a scale at HS if BSG above 180 mg/dl. * Novolog carb ratio tightened slightly today AM for post-prandial coverage. 07/28: * Pt is a 63 year old female admitted with a COPD exacerbation. History of DM2 on insulin therapy at home. Pharmacy consulted to assist with glycemic management. * BSGs elevated upon admission at [phone]/dL. Received 60 units of Lantus at home yesterday AM and 20 units NPH last evening. Received 19 units of bolus insulin yesterday. * Diet ordered, methylprednisolone 40mg IV BID switched to prednisone 40mg PO daily starting tomorrow. * Will resume home Lantus 60 units qAM (additional 10 units at lunch) while on steroids and add an HS basal scale depending on BSG. Novolog severe stress scale. PLAN FOR INPATIENT GLYCEMIC CONTROL: * Hold outpatient oral diabetes medications * Basal insulin * Lantus 60 units SQ qAM + HS scale (0 or 10 units) depending on BSG * NPH 20 units SQ QAM with Prednisone 40 mg QAM * Bolus insulin * NovoLog per scale ACHS or Q6hrs while NPO * Goal Range: Low 110 mg/dL - High 140 mg/dL * Correction Factor: 15 mg/dL/unit * Nutritional / Prandial insulin per carb ratio of 1 unit per 5 grams CHO consumed
[2023-07-31] MEDS: SOD PHOSPHATE/SOD BIPHOSPHATE ENEMA 132 ML BTL PR ONE (14:44)
--- NOTE | 2023-07-31 17:34 | Hospitalist Progress Note ---
Date of Service July 31, 2023 Assessment & Plan (1) COPD exacerbation: Plan: 63-year-old woman with severe COPD, ongoing tobacco abuse, chronic diastolic heart failure admitted with acute exacerbation of COPD no evidence of pneumonia based on clear chest x-ray, negative procalcitonin. does have leukocytosis continue steroids prednisone 40 mg daily continue antibiotics change doxycycline to 100 mg p.o. twice daily x 5d -continue bronchodilators -uses nocturnal O2 for history of chronic respiratory failure, suspected ELEUTERIO/OHS not on CPAP -obtained two-step 4 but did not qualify for daytime O2 asterixis earlier in the week is likely related to hypercarbia appears to have improved ABG without respiratory acidosis or significant hypercarbia, CO2 improved on BMP stable today 37 fine tremor is likely exacerbated by albuterol (2) Hypokalemia: Plan: -Noted to be 2.7 in the ED -serial replacements. 3.5 today (3) Tobacco abuse: Plan: -Continue to stress the importance of cessation -Patient seems motivated to quit due to the severity of her symptoms this week -Denied need for nicotine patch or gum at this time -counseled cessation 07/30 (4) Chronic anticoagulation: Plan: -Continue Lovenox for hx of PE -Denies recently missed doses, no chest pain -suspicion for acute PE low at this time (5) Diabetes: Plan: -Monitor BSG ACHS, goal is 110-160 while on steroids - continue glargine and Premeal aspart -Pharmacy glycemic consult placed and insulins were adjusted -adequate control 07/30 (6) Obesity hypoventilation syndrome: Plan: -Continue prn O2 -Continue to stress importance of ELEUTERIO testing on discharge (7) Opiate dependence: Plan: -Continue Suboxone (8) Heart failure with preserved ejection fraction: Plan: -home regimen BID Bumetanide, metolazone on MWF -dry today on labs BUN/Cr up to 54/1.34 already had AM diuretics so gave 500 mL LR. Hold diuretics pending AM labs. Likely reflects low salt diet in hospital, states she takes all doses at home. Plan anxiety, benzodiazepine dependencereviewed PDMP confirmed Xanax dosing, ordered 3 times daily chronic pain on twice daily Suboxonecontinued DVT prophylaxischronically on therapeutic dose Lovenox Admission and Anticipated Discharge Date Admission Date: July 28, 2023 Subjective dyspnea improving, now able to walk in hallway, nonproductive cough very nauseated this am responded to zofran, constipated Physical Exam 2 Physical Exam: PHYSICAL EXAMINATION Last 24h vital signs reviewed, see documentation in flowsheet General: comfortable appearing, no distress, sitting in bed and walking in HW HEENT: Normocephalic, atraumatic, pupils round and equal, sclerae anicteric, no conjunctival injection, moist mucus membranes Lungs: comfortable resp effort much better air mvt no ronchi, musical exp wheezes throughout Heart: Regular rate and rhythm, no murmurs. No JVD Abdomen: Soft, nontender, nondistended. Bowel sounds present. Extremities: Warm, dry, well-perfused. no extremity edema. Neuro: Alert and oriented x 4, face symmetric, moves 4 extremities well Psych: anxious affect and mood but less so, normal behavior Results & Data Results & Data Vital Signs (Past 12 Hours) Vital Signs Temp Pulse Pulse Pulse Pulse Pulse Resp 07/31/23 16:17 37.6 C H 74 16 07/31/23 13:56 114 H 109 H 107 H 07/31/23 12:19 102 H 16 07/31/23 12:07 36.6 C 102 H 18 07/31/23 09:00 94 H 07/31/23 08:32 36.6 C 95 H 16 07/31/23 07:42 85 20 Resp Resp Resp BP Pulse Ox Pulse Ox Pulse Ox 07/31/23 16:17 105/62 97 07/31/23 13:56 20 18 16 90 91 07/31/23 12:19 94 07/31/23 12:07 123/85 90 07/31/23 09:00 07/31/23 08:32 108/77 98 07/31/23 07:42 92 Pulse Ox O2 Del Method 07/31/23 16:17 Room Air 07/31/23 13:56 93 07/31/23 12:19 Room Air 07/31/23 12:07 Room Air 07/31/23 09:00 07/31/23 08:32 Room Air 07/31/23 07:42 Room Air Laboratory Results 07/31/23 05:34 07/31/23 05:34 PG Care Time/CCT Total # of Minutes Spent Total Time Spent with Patient: Total time spent is greater than 50% in coordination of care (as documented) at patient's floor/unit and/or counseling patient: Coding Level of Care Code 78460 SUB INP/OBS CARE 2MIN Diagnoses COPD exacerbation J44.1 Hypokalemia E87.6 Tobacco abuse Z72.0 Chronic anticoagulation Z79.01 Diabetes E11.9 Obesity hypoventilation syndrome E66.2 Opiate dependence F11.20 Heart failure with preserved ejection fraction I50.30
--- NOTE | 2023-07-31 19:08 | Electrocardiogram Report ---
Test Reason : Blood Pressure : / mmHG Vent. Rate : 099 BPM Atrial Rate : 099 BPM P-R Int : 176 ms QRS Dur : 070 ms QT Int : 366 ms P-R-T Axes : 044 027 072 degrees QTc Int : 469 ms Normal sinus rhythm Possible Left atrial enlargement Anterior infarct , age undetermined Abnormal ECG When compared with ECG of 30-JUN-2023 17:50, Anterior infarct is now Present Confirmed by Juan Hardin ([id number] on 07/31/2023 7:08:12 PM Referred By: REFERRED SELF Confirmed By:Juan Hardin
[2023-08-01 06:51] LABS: BUN Creatinine Ratio 51.6 (10-20); Calcium 9.5 mg/dl (8.6-10.3); Creatinine Clr Calc Pharmacy 47.4 ml/min; Est GFR (African American) 51.9 ml/min; Est GFR (Non-African American) 44.8 ml/min; Potassium 2.7 mmol/L (3.5-5.1)
[2023-08-01] MEDS: POTASSIUM CHLORIDE CRTAB 20 MEQ TABCR PO STA (08:11)
[2023-08-01] MEDS: SENNA 8.6 MG TAB PO SCH (08:12)
[2023-08-01 08:42] LABS: Magnesium 2.2 mg/dl (1.7-2.4)
[2023-08-01] MEDS: NovoLIN-N (NPH) PER UNIT CHARGE SQ SCH (09:08)
[2023-08-01] MEDS: ONDANSETRON INJ 2 MG/ML 2 ML VIAL IV PRN (11:37)
--- NOTE | 2023-08-01 13:23 | Pharmacy Report ---
Pharmacy Glycemic Short Note 2 - Date of Service August 01, 2023 - Glycemic Short BSG Results (Last 24 hours): 07/31/23 07/31/23 08/01/23 16:59 20:20 05:24 Glucose 117 H POC Glucose 174 H 238 H 08/01/23 08/01/23 08:13 11:49 Glucose POC Glucose 203 H 147 H OUTPATIENT ANTIDIABETIC REGIMEN: * Lantus 60 units SC AM * Novolog 10 units SC AC * Semaglutide 0.25 mg SC weekly * HbA1C: 10.5% (05/08/23) ASSESSMENT: 07/31: * Janae received 138 units of insulin yesterday: 70 units basal + 20 units NPH + 48 units bolus. BSGs were: 569-66-554-238 mg/dL. * Fasting BSG was 203 mg/dL this AM. Will continue with current basal regimen of 60 units AM + 0-10 units PM. * Remains on prednisone 40 mg daily. Will increase NPH to 30 units today. Carb ratio tightened as well. 07/30: * BSGs yesterday were [phone] mg/dl. Fasting BSG today was 133 mg/dl. * Patient received total 121 units of insulin yesterday (70 units basal + 51 units bolus). * Added NPH 20 units (0.3 units/kg, adjusted body wt) daily with Prednisone 40 mg today to help prevent highs later in the evening. * Pre-lunch BSG today was 97 mg/dl, which is below goal. If this continues, may need to loose Novolog carb ratio. 07/29: * BSGs yesterday were [phone] mg/dl. Fasting BSG today was 112 mg/dl. * Patient received total 151 units of insulin yesterday (80 units basal and 71 units bolus). * Basal dose continued with 60 units in AM and a scale at HS if BSG above 180 mg/dl. * Novolog carb ratio tightened slightly today AM for post-prandial coverage. 07/28: * Pt is a 63 year old female admitted with a COPD exacerbation. History of DM2 on insulin therapy at home. Pharmacy consulted to assist with glycemic management. * BSGs elevated upon admission at [phone]/dL. Received 60 units of Lantus at home yesterday AM and 20 units NPH last evening. Received 19 units of bolus insulin yesterday. * Diet ordered, methylprednisolone 40mg IV BID switched to prednisone 40mg PO daily starting tomorrow. * Will resume home Lantus 60 units qAM (additional 10 units at lunch) while on steroids and add an HS basal scale depending on BSG. Novolog severe stress sc [place]. PLAN FOR INPATIENT GLYCEMIC CONTROL: * Basal insulin * Lantus 60 units SC AM + HS scale (0 or 10 units) depending on BSG * NPH 30 units SC AM with Prednisone 40 mg PO AM * Bolus insulin * NovoLog per scale ACHS or Q6hrs while NPO * Goal Range: Low 110 mg/dL - High 140 mg/dL * Correction Factor: 15 mg/dL/unit * Nutritional / Prandial insulin per carb ratio of 1 unit per 4 grams CHO consumed
[2023-08-01] MEDS ORDERED: bisacodyL 10 MG SUPP PR PRN (13:37)
[2023-08-01] MEDS ORDERED: MINERAL OIL ENEMA 133 ML BTL PR PRN (13:37)
--- NOTE | 2023-08-01 16:23 | Hospitalist Progress Note ---
Date of Service August 01, 2023 Assessment & Plan (1) COPD exacerbation: Plan: 63-year-old woman with severe COPD, ongoing tobacco abuse, chronic diastolic heart failure admitted with acute exacerbation of COPD no evidence of pneumonia based on clear chest x-ray, negative procalcitonin. does have leukocytosis continue steroids prednisone 40 mg daily continue antibiotics change doxycycline to 100 mg p.o. twice daily x 5d -continue bronchodilators -uses nocturnal O2 for history of chronic respiratory failure, suspected ELEUTERIO/OHS not on CPAP -obtained two-step 07/30 but did not qualify for daytime O2 -continues slowly improving asterixis earlier in the week is likely related to hypercarbia appears to have improved ABG without respiratory acidosis or significant hypercarbia, CO2 improved on BMP stable today 37 fine tremor is likely exacerbated by albuterol (2) Hypokalemia: Plan: -Noted to be 2.7 in the ED -serial replacements -2.7 again this am, replaced, 3.9 on recheck. (3) Tobacco abuse: Plan: -Continue to stress the importance of cessation -Patient seems motivated to quit due to the severity of her symptoms this week -Denied need for nicotine patch or gum at this time -counseled cessation 07/30 (4) Chronic anticoagulation: Plan: -Continue Lovenox for hx of PE -Denies recently missed doses, no chest pain -suspicion for acute PE low at this time (5) Diabetes: Plan: -Monitor BSG ACHS, goal is 110-160 while on steroids - continue glargine and Premeal aspart -Pharmacy glycemic consult placed and insulins were adjusted -adequate control 07/31 (6) Obesity hypoventilation syndrome: Plan: -Continue prn O2 -Continue to stress importance of ELEUTERIO testing on discharge (7) Opiate dependence: Plan: -Continue Suboxone (8) Heart failure with preserved ejection fraction: Plan: -home regimen BID Bumetanide, metolazone on MWF - got volume depleted and prerenal on this Likely reflects low salt diet in hospital, states she takes all doses at home. -BUN/Cr better today, continue holding diuretics -AM BMP Plan constipation - yesterday fleets enema, added AM senna, she doesn't like miralax -may explain her nausea -prn enema, prn dulcolax supp anxiety, benzodiazepine dependencereviewed PDMP confirmed Xanax dosing, ordered 3 times daily chronic pain on twice daily Suboxonecontinued DVT prophylaxischronically on therapeutic dose Lovenox Admission and Anticipated Discharge Date Admission Date: July 28, 2023 Subjective No longer on O2. Remains more short of breath than baseline. Lung exam much better however. Hypokalemic again this am Nausea persists and constipation. Had a few hard rocio with laxative and enema. Physical Exam 2 Physical Exam: PHYSICAL EXAMINATION Last 24h vital signs reviewed, see documentation in flowsheet General: comfortable appearing, no distress, sitting in chair HEENT: Normocephalic, atraumatic, pupils round and equal, sclerae anicteric, no conjunctival injection, moist mucus membranes Lungs: comfortable resp effort reasonably good air mvt no ronchi, less prominent exp wheezes throughout Heart: Regular rate and rhythm, no murmurs. No JVD Abdomen: Soft, nontender, nondistended. Bowel sounds present. Extremities: Warm, dry, well-perfused. no extremity edema. Neuro: Alert and oriented x 4, face symmetric, moves 4 extremities well Psych: anxious affect and mood but less so, normal behavior Results & Data Results & Data Vital Signs (Past 12 Hours) Vital Signs Temp Pulse Pulse Resp BP Pulse Ox O2 Del Method 08/01/23 15:42 36.8 C 98 H 18 113/74 91 Room Air 08/01/23 12:15 89 16 90 Room Air 08/01/23 11:06 36.7 C 93 H 16 123/87 93 Room Air 08/01/23 08:27 36.9 C 95 H 16 114/73 93 Room Air 08/01/23 07:24 88 20 92 Room Air 08/01/23 07:12 Room Air 08/01/23 07:11 89 Laboratory Results 07/31/23 05:34 08/01/23 14:07 PG Care Time/CCT Total # of Minutes Spent Total Time Spent with Patient: Total time spent is greater than 50% in coordination of care (as documented) at patient's floor/unit and/or counseling patient: Coding Level of Care Code 93446 SUB INP/OBS CARE 2/35MIN Diagnoses COPD exacerbation J44.1 Hypokalemia E87.6 Tobacco abuse Z72.0 Chronic anticoagulation Z79.01 Diabetes E11.9 Obesity hypoventilation syndrome E66.2 Opiate dependence F11.20 Heart failure with preserved ejection fraction I50.30
[2023-08-02 07:14] LABS: BUN Creatinine Ratio 47.6 (10-20); Calcium 9.7 mg/dl (8.6-10.3); Creatinine Clr Calc Pharmacy 58.9 ml/min; Est GFR (African American) 67.5 ml/min; Est GFR (Non-African American) 58.2 ml/min; Potassium 3.2 mmol/L (3.5-5.1)
[2023-08-02] MEDS: POTASSIUM CHLORIDE CRTAB 20 MEQ TABCR PO STA (08:27)
[2023-08-02] MEDS: NovoLIN-N (NPH) PER UNIT CHARGE SQ SCH (08:45)
--- NOTE | 2023-08-02 09:30 | Pharmacy Report ---
Pharmacy Glycemic Short Note 2 - Date of Service August 02, 2023 - Glycemic Short BSG Results (Last 24 hours): 08/01/23 08/01/23 08/01/23 11:49 17:08 20:40 Glucose POC Glucose 147 H 221 H 158 H 08/02/23 08/02/23 06:23 07:45 Glucose 161 H POC Glucose 152 H OUTPATIENT ANTIDIABETIC REGIMEN: * Lantus 60 units SC AM * Novolog 10 units SC AC * Semaglutide 0.25 mg SC weekly * HbA1C: 10.5% (05/08/23) ASSESSMENT: 08/01: * Received 147 units of insulin yesterday, 60 basal + 30 NPH + 57 bolus. BSGs were: 128-320-083-158 mg/dL. * Fasting BSG 152 mg/dL this AM. Continue with just AM basal dose. Discontinue HS basal. * Postprandial BSG at dinner still uncontrolled. Will increase NPH to full 0.4 units/kg today to cover for prednisone 40 mg PO daily which patient continues on. * No change to Novolog. 07/31: * Janae received 138 units of insulin yesterday: 70 units basal + 20 units NPH + 48 units bolus. BSGs were: 285-46-357-238 mg/dL. * Fasting BSG was 203 mg/dL this AM. Will continue with current basal regimen of 60 units AM + 0-10 units PM. * Remains on prednisone 40 mg daily. Will increase NPH to 30 units today. Carb ratio tightened as well. 07/30: * BSGs yesterday were [phone] mg/dl. Fasting BSG today was 133 mg/dl. * Patient received total 121 units of insulin yesterday (70 units basal + 51 units bolus). * Added NPH 20 units (0.3 units/kg, adjusted body wt) daily with Prednisone 40 mg today to help prevent highs later in the evening. * Pre-lunch BSG today was 97 mg/dl, which is below goal. If this continues, may need to loose Novolog carb ratio. 07/29: * BSGs yesterday were [phone] mg/dl. Fasting BSG today was 112 mg/dl. * Patient received total 151 units of insulin yesterday (80 units basal and 71 units bolus). * Basal dose continued with 60 units in AM and a scale at HS if BSG above 180 mg/dl. * Novolog carb ratio tightened slightly today AM for post-prandial coverage. 07/28: * Pt is a 63 year old female admitted with a COPD exacerbation. History of DM2 on insulin therapy at home. Pharmacy consulted to assist with glycemic management. * BSGs elevated upon admission at [phone]/dL. Received 60 units of Lantus at home yesterday AM and 20 units NPH last evening. Received 19 units of bolus insulin yesterday. * Diet ordered, methylprednisolone 40mg IV BID switched to prednisone 40mg PO daily starting tomorrow. * Will resume home Lantus 60 units qAM (additional 10 units at lunch) while on steroids and add an HS basal scale depending on BSG. Novolog severe stress scale. PLAN FOR INPATIENT GLYCEMIC CONTROL: * Basal insulin * Lantus 60 units SC AM * NPH 40 units SC AM with Prednisone 40 mg PO AM * Bolus insulin * NovoLog per scale ACHS or Q6hrs while NPO * Goal Range: Low 110 mg/dL - High 140 mg/dL * Correction Factor: 15 mg/dL/unit * Nutritional / Prandial insulin per carb ratio of 1 unit per 4 grams CHO consumed
--- NOTE | 2023-08-02 18:05 | Discharge Summary ---
Date of Service August 02, 2023 Admission HPI Per Admitting Provider Janae Monzon is 63yo female with multiple medical comorbidities to include COPD on supplemental O2 2L NC HS, HFpEF, DM, prior PE on Lovenox who presented to the [facility] ED on 07/28/23 with complaints of increased SOB. On arrival to the ED she was noted to be stable on her baseline 2L NC and tachycardic with HR of 101 but otherwise stable. A heart alert was called after arrival as ECG was concerning for possible inferior STEMI. However, after closer review, the patient did not have true ECG changes concerning for STEMI. Labs were significant for a leukocytosis of 17 with neutrophil predominance of 13, bicarb of 43, chloride of 83, potassium of 2.7, BNP and high sen trop WNL, and full respiratory biofire was negative. Chest xray was read as Cardiomegaly and mild pulmonary edema.. Prior to admission the patient was given 2 levalbuterol nebulizers, 60 mg IV methylprednisolone, and an albuterol treatment. At the time of the exam the patient was sitting in bed in no acute distress. She is currently stable on her baseline 2L NC. States that over the past 3-4 days has had significantly more SOB and wheezing than baseline. Has been unable to smoke over the past 3 days due to symptoms. States that since starting metolazone MWF on top of BID Bumex her volume status has been much improved, she does not feel as though she has been more swollen recently. Has had a bit of a more productive cough but denies changes in sputum production. Denies recent fever, chills, chest pain, pleuritic chest pain, hemoptysis, abd pain, vomiting, dysuria, hematuria, diarrhea, melena, LE swelling, and recent trauma. Since arriving to the ED and receiving multiple breathing treatments and IV Solu- medrol her acute respiratory symptoms has improved but not resolved. She is a full code. Principal Diagnosis Acute exacerbation of COPD Discharge Exam PHYSICAL EXAMINATION Last 24h vital signs reviewed, see documentation in flowsheet General: comfortable appearing, no distress, sitting in chair HEENT: Normocephalic, atraumatic, pupils round and equal, sclerae anicteric, no conjunctival injection, moist mucus membranes Lungs: comfortable resp effort good air movement throughout, no rales, slight exp wheeze in base Heart: Regular rate and rhythm, no murmurs. No JVD Abdomen: Soft, nontender, nondistended. Bowel sounds present. Extremities: Warm, dry, well-perfused. no extremity edema. Neuro: Alert and oriented x 4, face symmetric, moves 4 extremities well Psych: normal affect, normal behavior Discharge Data Allergies Allergy/AdvReac Type Severity Reaction Status Date / Time codeine Allergy Severe Anaphylaxis Verified 07/28/23 16:06 Iodinated Contrast Media Allergy Severe Anaphylaxis Verified 07/28/23 16:06 shellfish derived Allergy Severe Anaphylaxis Verified 07/28/23 16:06 tramadol Allergy Intermediate ITCHINESS Verified 07/28/23 16:06 iohexol Allergy Unknown CAN'T Verified 07/28/23 16:06 REMEMBER diphenhydramine AdvReac Severe Anxiety Verified 07/28/23 16:06 [From Benadryl] montelukast [From Singulair] AdvReac Intermediate Anxiety Verified 07/28/23 16:06 promethazine AdvReac Intermediate Anxiety Verified 07/28/23 16:06 Procedures Performed Operation Date: 07/28/23 15:45 <No data on this case meets the specified criteria> Ordered Studies Chest X-Ray 07/28/23 15:14 XR chest 1V portable CLINICAL HISTORY: Chest pain, nonspecific TECHNIQUE: Single frontal radiograph of the chest was obtained. Comparison: Comparison is made to chest radiograph 06/30/2023 FINDINGS: No lines and tubes are seen. Cardiomegaly is noted. Prominence and cephalization of the vasculature is seen. No evidence of pleural effusion or pneumothorax. IMPRESSION: Cardiomegaly and mild pulmonary edema. ACT 112: Negative or not required by law. Electronically signed by: Raheem Macias M.D. 07/28/2023 3:57 PM 07/31/23 05:34 08/02/23 06:23 Hospital Course (1) COPD exacerbation: 63-year-old woman with severe COPD, ongoing tobacco abuse, chronic diastolic heart failure admitted with acute exacerbation of COPD no evidence of pneumonia based on clear chest x-ray, negative procalcitonins. did have leukocytosis. remained afebrile. asterixis earlier in the week at home was likely related to hypercarbia appears to have improved ABG without respiratory acidosis or significant hypercarbia, CO2 improved on BMP stable mild elevation treated with IV/po steroids, doxycycline (completed 5 days course in hospital), bronchodilators, supplemental O2 - improved significantly, on room air by 4/5 continue steroids prednisone 40 mg tapering quickly off over 5 days - she gets mood disturbance with prednisone and prefers rapid taper -continue bronchodilators, has trilogy inhaler and nebs at home -uses nocturnal O2 for history of chronic respiratory failure, suspected ELEUTERIO/OHS not on CPAP -obtained two-step 4/5 but did not qualify for daytime O2 even with ambulation -follow up with primary care and her complaint adjuster -needs to call her O2 supply company and transfer to the local branch l (2) Hypokalemia: -Noted to be 2.7 in the ED. She often doesn't take her afternoon potassium dose at home -serial replacements were required this admission -increased home potassium to 40 in am and 20 in afternoon (3) Tobacco abuse: -Continue to stress the importance of cessation -Patient seems motivated to quit due to the severity of her symptoms this week -Denied need for nicotine patch or gum at this time -counseled cessation 07/30 (4) Chronic anticoagulation: -Continue Lovenox for hx of PE -Denies recently missed doses, no chest pain -suspicion for acute PE low at this time (5) Diabetes: resume home regimen (6) Obesity hypoventilation syndrome: -recommended sleep apnea testing (7) Opiate dependence: -Continue Suboxone -also benzodiazepine dependence - xanax recently increased to tid as outpatient (8) Heart failure with preserved ejection fraction: -home regimen BID Bumetanide, metolazone on MWF - has been doing MUCH better at home on this regimen but got volume depleted and prerenal on this either because of hospital diet / fluid restriction or because she does not take all doses consistently at home. Renal function improved to baseline after holding diuretics in hospital. -euvolemic this admission. resume her usual regimen at home but increase potassium replacement Total Time Total Time Spent Total Time Spent (In Minutes): I personally spent: 35 minutes today on clinical care activities including: reviewing chart notes and vital signs reviewing labs discussion with care companion examining and counseling the patient writing orders, discharge instructions documentation Discharge Plan Discharge Items Patient Disposition: Home - Self-Care Reason For Visit: SOB, COPD EXACERBATION Discharge Diagnosis: COPD exacerbation Activity: Resume your previous activity Non-emergency contact: Primary Care Provider, Government Affairs Specialist and Cash Posting Clerk Call non-emergency contact if: you have any medication questions and your symptoms worsen Follow-up/Referrals: Malvin Tian DO [Physician] - Radha Barboza PA-C [Primary Care Provider] - Diet: Carb Consistent or DM2 Addtl Attending Provider Instructions: You were treated for exacerbation of COPD -breathing treatments -antibiotic for bronchitis (doxycycline) - you finished this in the hospital -prednisone - taper over 5 days Follow up as scheduled with cardiology for heart failure, follow up with your complaint adjuster as well The current diuretics are working well for you but you need more potassium supplementation. I think we should increase it to 40 (2 tabs) in the morning and 20 (1 tab) at dinnertime or bedtime Follow up in primary care - keep up your efforts at smoking cessation - it is REALLY worth it for your lungs. Don't smoke near oxygen equipment or when using oxygen - that can result in fire / severe hi - have your labs (chemistry panel) checked at next visit for potassium and kidney function Pending Studies at Discharge: No Stand-Alone Forms: My [facility], Smoking Cessation Medications and DC Order Prescriptions: New sennosides [Senokot] 8.6 mg Tablet 8.6 - 17.2 mg PO QAM Qty: 60 0RF Rx Instructions: may buy over the counter prednisone 10 mg tablet See Taper PO DIRECTED Qty: 10 0RF Taper: Taper, Blank 40 mg DAILY for 1 Day 20 mg DAILY for 2 Days 10 mg DAILY for 1 Day 5 mg DAILY for 2 Days Rx Instructions: see taper instructions Continued Ozempic 0.25 mg or 0.5 mg (2 mg/3 mL) pen injector 0.25 mg subcut WK Rx Instructions: FRIDAYS---2 MORE DOSES AT 0.25 MG/WK, THEN INCREASES TO 0.5 MG/WK. ondansetron HCl 4 mg Tablet 4 mg PO Q8H PRN (Reason: NAUSEA/VOMITING) quetiapine 200 mg tablet 200 mg PO HS nystatin 100,000 unit/gram Powder 1 applic TOPICAL BID PRN (Reason: UNDER BREASTS NEEDED.) buprenorphine-naloxone 8-2 mg film 1 film sublingual BID insulin glargine 100 unit/mL (3 mL) insulin pen 60 unit SUBCUT QAM bumetanide 2 mg tablet 4 mg PO BID enoxaparin 150 mg/mL syringe 150 mg subcut QAM insulin aspart U-100 [Novolog FlexPen U-100 Insulin] 100 unit/mL (3 mL) insulin pen 10 unit SUBCUT AC Trelegy Ellipta 200-62.5-25 mcg blister with device 1 ea INHALATION QAM levalbuterol tartrate 45 mcg/actuation HFA aerosol inhaler 2 puff INHALATION Q4 PRN (Reason: WHEEZE) levalbuterol HCl 1.25 mg/3 mL solution for nebulization 1.25 mg INHALATION TID PRN (Reason: Shortness Of Breath Or Wheezing) ipratropium bromide 0.02 % solution 3 ml continuous nebulization QID metolazone 5 mg tablet 5 mg PO 3XWK Rx Instructions: 5 mg orally on Mondays, Wednesdays, and Fridays Changed alprazolam 0.5 mg tablet 0.5 mg PO TID Qty: 14 0RF Rx Instructions: pt requesting to take same time as suboxone potassium chloride 20 mEq Tablet,Er Particles/Crystals See Rx Instructions .ROUTE .COMPLEX Qty: 90 0RF Rx Instructions: 2 tabs in AM and 1 tab in afternoon/evening Discharge Orders: Discharge Order (Routine); Ordered 08/02/23 Ordered By: Mine Delgado Admission Data Admit Date/Time: 07/28/23 17:13 Attending Provider: Mine Delgado Admit Provider: Jaziel Ellsworth Primary Care Provider: Radha Barboza Other Interventions: Discharge Summary Assessment (RN) Last Done: 08/02/23 10:41 Coding Level of Care Code 54401 INP/OBS DISCH >30 MIN Diagnoses COPD exacerbation J44.1 Hypokalemia E87.6 Tobacco abuse Z72.0 Chronic anticoagulation Z79.01 Diabetes E11.9 Obesity hypoventilation syndrome E66.2 Opiate dependence F11.20 Heart failure with preserved ejection fraction I50.30
== END 2023-08-02 11:29 | disposition home or self-care (01) | DRG 190 ==
LOC: ED 14:57 → SUATTDRO 17:13 → EDINP 17:13 → 2N 19:06 → 3W 08-01 18:34
DX: Z79.01 Long term (current) use of anticoagulants; J96.22 Acute and chronic respiratory failure with hypercapnia; E87.6 Hypokalemia; Z88.5 Allergy status to narcotic agent; J96.21 Acute and chronic respiratory failure with hypoxia; Z91.041 Radiographic dye allergy status; Z59.00 Homelessness unspecified; F11.20 Opioid dependence, uncomplicated; J44.1 Chronic obstructive pulmonary disease with (acute) exacerbation; R27.8 Other lack of coordination; Z94.84 Stem cells transplant status; D72.829 Elevated white blood cell count, unspecified; I50.32 Chronic diastolic (congestive) heart failure; Z99.81 Dependence on supplemental oxygen; Z87.891 Personal history of nicotine dependence; Z86.711 Personal history of pulmonary embolism; E11.9 Type 2 diabetes mellitus without complications; Z79.899 Other long term (current) drug therapy; Z88.8 Allergy status to other drugs, medicaments and biological substances; Z79.4 Long term (current) use of insulin; E66.2 Morbid (severe) obesity with alveolar hypoventilation; Z91.013 Allergy to seafood

== ENCOUNTER 2023-08-16 13:38 | Inpatient (IN) ==
--- OUTSIDE RECORDS SUMMARY | 2023-08-16 13:42 | External Medical Summary | Continuity of Care Document ---
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 Name Role Phone Radha Barboza Primary Care Physician [phone] [id number] Date(s): 08/13/23 - 08/13/23 [facility] [address] [facility] [address] [facility] [address] [facility] [address] [place] [address] [phone] Encounter Diagnosis Type 2 diabetes mellitus with hyperglycemia(Final) - Essential (primary) hypertension(Final) - Localized edema(Final) - Encounter for follow-up examination after completed treatment for conditions other than malignant neoplasm(Final) - Heart failure, unspecified(Final) - Other specified abnormal findings of blood chemistry(Final) - Discharge Disposition: Home or Self Care Attending Physician: ELENA Barboza Kimberly A Referring Physician: ELENA Barboza Kimberly A Allergies, Adverse [...] 102 lancet, Refills: 0, 32G x , [id number] Start Date: 06/30/23 Status: Ordered ALPRAZolam 0.5 mg oral tablet Start: 06/24/23 9:04:00 EST, 1 tab, PO, bid, Disp# 90 tab, Refills: 2, Make take an extra tablet for acute panic attacks. Max 3/day, PRN: as needed for anxiety, Pharmacy: [facility]/pharmacy #[id number] Start Date: 06/24/23 Status: Ordered bumetanide 2 mg oral tablet Start: 03/09/23 22:51:00 EST, See Instructions, Disp# 360 tab, Refills: 3, TAKE 2 TABLETS BY MOUTH IN THE MORNING AND 2 TABLET AT LUNCHTIME, [id number] Start Date: 03/09/23 Status: Ordered buprenorphine-naloxone 8 mg-2 mg sublingual film Start: 08/03/23 13:45:00 EDT, 1 patch Start Date: 08/03/23 Status: Ordered buprenorphine-naloxone 8 mg-2 mg sublingual film Start: 07/31/23 10:57:00 EDT, 1 patch, SL, bid, Disp# 60 patch, Refills: 0, Pharmacy: [facility]/pharmacy #[id number] Start Date: 07/31/23 Stop Date: 08/30/23 Status: Ordered DEXCOM G6 SENSOR Start: 06/26/23 9:55:00 EST, DEXCOM G6 SENSOR, See Instructions, Disp# 3 unknown unit, Refills: 1, USE DIRECTED BY MD TO TEST GLUCOSE 4-5 TIMES A DAY, Pharmacy [id number] Start Date: 06/26/23 Status: Ordered Dexcom G6 Sensor Kit Start: 06/24/23 9:01:00 EST, See Instructions, Disp# 1 kit, Refills: 5, Check BS up to three times daily, Note to Pharmacy: Uncontrolled DM2 (E11.65), Pharmacy: [facility]/pharmacy #[id number] Start Date: 06/24/23 Status: Ordered enoxaparin 150 mg/mL injectable solution Start: 06/24/23 9:03:00 EST, 1 mL, subQ, Daily, Disp# 30 mL, Refills: 11, Pharmacy: [facility]/pharmacy #[id number] Start Date: 06/24/23 Status: Ordered Klor-Con M20 oral tablet, extended release Start: 08/03/23 13:44:00 EDT, 2 tab, PO, Daily, take 2 tabs in AM and then 1 in PM Start Date: 08/03/23 Status: Ordered Lantus Solostar Pen Start: 09/25/14 10:14:00, 55 unit =, subQ, Daily Start Date: 09/25/14 Status: Ordered metOLazone 2.5 mg oral tablet Start: 08/13/23 11:01:00 EDT, 1 tab, PO, Daily Start Date: 08/13/23 Status: Ordered NovoLOG FlexPen 100 units/mL injectable solution Start: 02/17/23 15:10:00 EDT, 10 unit =, subQ, ac, Disp# 15 mL, Refills: 5, Pharmacy: [facility]/pharmacy #[id number] Start Date: 02/17/23 Status: Ordered ondansetron 4 mg oral tablet, disintegrating Start: 03/11/23 12:29:00 EST, 1 tab, PO, q8h, Disp# 30 tab, Refills: 1, PRN: as needed for nausea/vomiting, Pharmacy: [facility]/pharmacy #[id number] Start Date: 03/11/23 Status: Ordered Ozempic (0.25 mg or 0.5 mg dose) 2 mg/3 mL subQ pen Start: 07/08/23 14:47:00 EDT, See Instructions, subQ, q7days, Disp# 3 mL, Refills: 1, Inject 0.25 mg every 7 days X 4 weeks then increase to 0.5 mg SQ every 7 days., Pharmacy: [facility]/pharmacy #[id number], Supply Start Date: 07/08/23 Status: Ordered Potassium Chloride (Eqv-K-Tab) 20 mEq oral tablet, extended release Start: 07/14/23 14:21:00 EDT, 1 tab, PO, tid, Disp# 90 tab, Refills: 3, Pharmacy: [facility]/pharmacy #[id number] Start Date: 07/14/23 Stop Date: 11/11/23 Status: Ordered predniSONE 10 mg oral tablet Start: 08/03/23 13:44:00 EDT, 1 tab, PO, Daily Start Date: 08/03/23 Status: Ordered Pulmicort Flexhaler Start: 06/19/23 13:53:00 EST Start Date: 06/19/23 Status: Ordered QUEtiapine 200 mg oral tablet Start: 06/22/23 17:20:00 EST, 1 tab, PO, Daily, Disp# 90 tab, Refills: 3, Pharmacy: [facility] #[id number] Start Date: 06/22/23 Status: Ordered Trelegy Ellipta 200 mcg-62.5 mcg-25 mcg/inh inhalation powder Start: 07/08/22 11:13:00 EDT Start Date: 07/08/22 Status: Ordered UltiCare Pen Needle 32G x 4mm Start: 07/08/23 14:51:00 EDT, See Instructions, Disp# 100 pen_needle, Refills: 1, Use three times daily, Note to Pharmacy: E11.65, Pharmacy: [facility]/pharmacy #[id number] Start Date: 07/08/23 Status: Ordered Ventolin HFA 90 mcg/inh inhalation aerosol Start: 08/13/23 11:23:00 EDT, 2 puff, inhaled, qid, Disp# 8 g, Refills: 5, PRN: as needed for wheezing, Pharmacy: [facility]/pharmacy #[id number] Start Date: 08/13/23 Status: Ordered Zaroxolyn 2.5 mg oral tablet Start: 08/12/23 17:12:00 EDT, See Instructions, Disp# 15 tab, Refills: 1, 1 tab QOD, Pharmacy: [facility]/pharmacy #[id number] Start Date: 08/12/23 Status: Ordered Problem List Condition Confirmation Course [...] Comple ganesh Results Laboratory List Name Date Complete Blood Count (CBC) 08/13/23 Comprehensive Metabolic Panel (COMP META B PANEL) 08/13/23 Hemoglobin A1C (HEMOGLOBIN, A1C) 08/13/23 Most recent to oldest [Reference Range]: 1 eGFR CKD-EPI [>60 mL/min/1.73 m2] 52 mL/ min/1.73 m2 *LOW* (08/13/23 11:59 AM) Estimated Average Glucose 249 mg/dL (08/13/23 11:59 AM) Estimated CrCl 52.72 mL/min (08/13/23 7:56 PM) MPV [9.0-12.2 fL] 9.6 fL (08/13/23 11:59 AM) RDW [11.5-14.2 %] 15.9 % *HI* (08/13/23 11:59 AM) Anion Gap [5-14 mmol/L] 15 mmol/L *HI* (08/13/23 11:59 AM) Alb [3.5-5.2 g/dL] 4.0 g/dL (08/13/23 11:59 AM) Alk Phos [35-115 unit/L] 110 unit/L 1 (08/13/23 11:59 AM) ALT [0-33 unit/L] 16 unit/L (08/13/23 11:59 AM) AST [0-32 unit/L] 12 unit/L (08/13/23 11:59 AM) BUN [6-23 mg/dL] 28 mg/dL *HI* (08/13/23 11:59 AM) Ca [8.4-10.2 mg/dL] 9.6 mg/dL (08/13/23 11:59 AM) Cl- [98-107 mmol/L] 88 mmol/L *LOW* (08/13/23 11:59 AM) HCO3 [22-29 mmol/L] 33 mmol/L *HI* (08/13/23 11:59 AM) Cret [0.60-1.00 mg/dL] 1.18 mg/dL *HI* (08/13/23 11:59 AM) HbA1c [<5.7 %] 10.3 % 2 *HI* (08/13/23 11:59 AM) Glu [74-109 mg/dL] 197 mg/dL 3 *HI* (08/13/23 11:59 AM) Hct [35-44 %] 47.4 % *HI* (08/13/23 11:59 AM) Hgb [11.7-15.0 g/dL] 15.2 g/dL *HI* (08/13/23 11:59 AM) K [3.5-5.1 mmol/L] 3.3 mmol/L *LOW* (08/13/23 11:59 AM) MCH [28-33 pg] 26.5 pg *LOW* (08/13/23 11:59 AM) MCHC [32-36 g/dL] 32.1 g/dL (08/13/23 11:59 AM) MCV [81-96 fL] 82.6 fL (08/13/23 11:59 AM) Na [136-145 mmol/L] 136 mmol/L (08/13/23 11:59 AM) Plts [150-350 K/uL] 333 K/uL (08/13/23 11:59 AM) RBC [3.90-5.00 M/uL] 5.74 M/uL *HI* (08/13/23 11:59 AM) T Bili [0.0-1.2 mg/dL] 0.2 mg/dL (08/13/23 11:59 AM) Prot [6.4-8.3 g/dL] 7.2 g/dL (08/13/23 11:59 AM) WBC [4.0-10.4 K/uL] 18.11 K/uL *HI* (08/13/23 11:59 AM) 1Result Comment: Low levels of ALKP may indicate a deficiency in zinc, magnesium, or malnutritionbutcan also be an indicator of a rare genetic disease hypophosphatasia (HPP). 2Result Comment: ADA Recommended [place] Reference Range: Normal: <5.7% Prediabetes: 5.7-6.4% Diabetes: >6.4% 3Result Comment: ADA recommendation for FASTING Serum/Plasma Glucose: Normal: 70-100 mg/dL Prediabetes: 100-125 mg/dL Diabetes: 126 mg/dL or higher Social History Social History Type Response Smoking Status Current every [facility] smoker Sex Female Patient Care team information Care Team Personnel Name: ELENA Barboza, Radha Bhatia Position: Physician Asst Exseat - Family Med Member Role: Primary Care Provider Address: Address: [address] [facility] [address] [place] [id number] Name: MARGARET Dunn Jo Ann M Position: Nurse Pract - Hem/Onc Member Role: Lifetime Relationship Address: Address: [address] [place] [id number] Care Team Related Persons Name: MO SAMUEL Address: home [place]
--- OUTSIDE RECORDS SUMMARY | 2023-08-16 13:42 | External Medical Summary | Continuity of Care Document ---
Author Name Unknown Organization [facility] [id number] [place] [id number] Care Team Providers Care Health Claims Examiner Name Role Phone JabariRadha Primary Care Physician [phone] Encounter [facility] [id number] Date(s): 08/13/23 - 08/13/23 [facility] [address] [place] [address] [phone] Encounter Diagnosis Body mass index [BMI] 37.0-37.9, adult(Discharge Diagnosis) - 08/13/23 Hospital discharge follow-up(Discharge Diagnosis) - 08/13/23 Heart failure(Discharge Diagnosis) - 08/13/23 Elevated serum creatinine(Discharge Diagnosis) - 08/13/23 Discharge Disposition: Home or Self Care Attending Physician: MD Marie, Gisele Pan Allergies, Adverse Reactions, Alerts Substance Reaction Severity [...] 3/day, PRN: as needed for anxiety, Pharmacy: [facility]/pharmacy #[id number] Start Date: 06/24/23 Status: Ordered bumetanide 2 mg oral tablet Start: 03/09/23 22:51:00 EST, See Instructions, Disp# 360 tab, Refills: 3, TAKE 2 TABLETS BY MOUTH IN THE MORNING AND 2 TABLET AT LUNCHTIME, [id number] Start Date: 03/09/23 Status: Ordered buprenorphine-naloxone 8 mg-2 mg sublingual film Start: 08/03/23 13:45:00 EDT, 1 patch Start Date: 08/03/23 Status: Ordered buprenorphine-naloxone 8 mg-2 mg sublingual film Start: 07/31/23 10:57:00 EDT, 1 patch, SL, bid, Disp# 60 patch, Refills: 0, Pharmacy: [facility]/pharmacy #[id number] Start Date: 07/31/23 Stop Date: 08/30/23 Status: Ordered DEXCOM G6 SENSOR Start: 06/26/23 9:55:00 EST, DEXCOM G6 SENSOR, See Instructions, Disp# 3 unknown unit, Refills: 1, USE DIRECTED BY MD TO TEST GLUCOSE 4-5 TIMES A DAY, Pharmacy [id number] Start Date: 06/26/23 Status: Ordered Dexcom G6 Sensor Kit Start: 06/24/23 9:01:00 EST, See Instructions, Disp# 1 kit, Refills: 5, Check BS up to three times daily, Note to Pharmacy: Uncontrolled DM2 (E11.65), Pharmacy: [facility]/pharmacy #[id number] Start Date: 06/24/23 Status: Ordered enoxaparin 150 mg/mL injectable solution Start: 06/24/23 9:03:00 EST, 1 mL, subQ, Daily, Disp# 30 mL, Refills: 11, Pharmacy: [facility]/pharmacy #[id number] Start Date: 06/24/23 Status: Ordered Klor-Con [...] ac, Disp# 15 mL, Refills: 5, Pharmacy: [facility]/pharmacy #[id number] Start Date: 02/17/23 Status: Ordered ondansetron 4 mg oral tablet, disintegrating Start: 03/11/23 12:29:00 EST, 1 tab, PO, q8h, Disp# 30 tab, Refills: 1, PRN: as needed for nausea/vomiting, Pharmacy: [facility]/pharmacy #[id number] Start Date: 03/11/23 Status: Ordered Ozempic (0.25 mg or 0.5 mg dose) 2 mg/3 mL subQ pen Start: 07/08/23 14:47:00 EDT, See Instructions, subQ, q7days, Disp# 3 mL, Refills: 1, Inject 0.25 mg every 7 days X 4 weeks then increase to 0.5 mg SQ every 7 days., Pharmacy: [facility]/pharmacy #[id number], Supply Start Date: 07/08/23 Status: Ordered Potassium Chloride (Eqv-K-Tab) 20 mEq oral tablet, extended release Start: 07/14/23 14:21:00 EDT, 1 tab, PO, tid, Disp# 90 tab, Refills: 3, Pharmacy: [facility]/pharmacy #[id number] Start Date: 07/14/23 Stop Date: 11/11/23 Status: Ordered predniSONE 10 mg oral tablet Start: 08/03/23 13:44:00 EDT, 1 tab, PO, Daily Start Date: 08/03/23 Status: Ordered Pulmicort Flexhaler Start: 06/19/23 13:53:00 EST Start Date: 06/19/23 Status: Ordered QUEtiapine 200 mg oral tablet Start: 06/22/23 17:20:00 EST, 1 tab, PO, Daily, Disp# 90 tab, Refills: 3, [id number] Start Date: 06/22/23 Status: Ordered Trelegy Ellipta 200 mcg-62.5 mcg-25 mcg/inh inhalation powder Start: 07/08/22 11:13:00 EDT Start Date: 07/08/22 Status: Ordered UltiCare Pen Needle 32G x 4mm Start: 07/08/23 14:51:00 EDT, See Instructions, Disp# 100 pen_needle, Refills: 1, Use three times daily, Note to Pharmacy: E11.65, Pharmacy: [facility]/pharmacy #[id number] Start Date: 07/08/23 Status: Ordered Ventolin HFA 90 mcg/inh inhalation aerosol Start: 08/13/23 11:23:00 EDT, 2 puff, inhaled, qid, Disp# 8 g, Refills: 5, PRN: as needed for wheezing, Pharmacy: [facility]/pharmacy #[id number] Start Date: 08/13/23 Status: Ordered Zaroxolyn 2.5 mg oral tablet Start: 08/12/23 17:12:00 EDT, See Instructions, Disp# 15 tab, Refills: 1, 1 tab QOD, Pharmacy: [facility]/pharmacy #[id number] Start Date: 08/12/23 Status: Ordered Mental Status 08/13/23 Barriers to Learning one year None evide nt Mandatory Health Literacy Documentation Yes Health Literacy Communication Barriers N ever Primary Language [place] Problem List Condition Confirmation Course Effective Dates [...] Effective Dates Health Status Clinical Service Informant Heart failure Discharge Diagnosis 08/13/23 Non-Specified Elevated serum creatinine Discharge Diagnosis 08/13/23 Non-Specified Hospital discharge follow-up Discharge Diagnosis 08/13/23 Non-Specified Body mass index [BMI] 37.0-37.9, adult Discharge Diagnosis 08/13/23 Non-Specified Procedures Procedure Date Related Diagnosis Body Site Status Bone marrow biopsy 2013 [facility] Vital Signs Most recent to oldest [Reference Range]: 1 Height 157.8 cm (08/13/23 11:12 AM) Patient Weight 93.3 kg (08/13/23 11:12 AM) Body Mass Index 37.47 kg/m2 (08/13/23 11:12 AM) Heart Rate 92 bpm (08/13/23 11:12 AM) Respiratory Rate 17 br/min (08/13/23 11:12 AM) Blood Pressure 122/68mmHg (08/13/23 11:12 AM) Social History Social History Type Response Smoking Status Current every day li ght smoker Sex Female Patient Care team information Care Team Personnel Name: ELENA Barboza, Radha Bhatia Position: Physician Asst Exmpt - Family Med Member Role: Primary Care Provider Address: Address: [address] [place] [address] [address] [place] [address] Name: MARGARET Dunn Jo Ann M Position: Nurse Pract - Hem/Onc Member Role: Lifetime Relationship Address: Address: [address] [place] [id number] Care Team Related Persons Name: MO SAMUEL Address: [facility]
[2023-08-16] MEDS: methylPREDNISolone 125 MG/2 ML VIAL IV STA (14:12)
[2023-08-16 14:14] LABS: Basophils # (auto) 0.06 K/uL (0.00-0.20); Basophils % (auto) 0.4 %; Eosinophils # (auto) 0.06 K/uL (0.00-0.50); Eosinophils % (auto) 0.4 %; Hematocrit (blood only) 50.7 % (37.0-47.0); Hemoglobin 16.5 g/dl (12.0-16.0); Immature Granulocytes # (auto) 0.05 K/uL (0.01-0.20); Immature Granulocytes % (auto) 0.3 %; Lymphocytes # (auto) 2.72 K/uL (1.20-3.40); Lymphocytes % (auto) 16.8 %; Mean Corpuscular Hgb Conc 32.5 g/dL (32.0-36.0); Mean Platelet Volume 9.7 fL (9.4-12.4); Monocytes # (auto) 0.44 K/uL (0.11-0.59); Monocytes % (auto) 2.7 %; Neutrophils # (auto) 12.83 K/uL (1.40-6.50); Neutrophils % (auto) 79.4 %; Platelet Count 329 K/uL (130-400); RDW Coefficient of Variation 16.9 % (11.5-14.5); RDW Standard Deviation 43.8 fL (36.4-46.3); Red Blood Count 6.34 M/uL (4.20-5.40); White Blood Count 16.16 K/ul (4.8-10.8)
[2023-08-16] MEDS: LORazepam 1 MG TAB PO STA (14:19)
--- NOTE | 2023-08-16 14:20 | Emergency Department Note ---
Impression & Plan Acute exacerbation of chronic obstructive pulmonary disease, Hypoxia ED Provider Note NAME: LIANNE SAMUEL AGE: 63 SEX: F : 1960 ARRIVES VIA: Walk-In INFORMANT: Patient, ED PROVIDER(S): José Miguel Mathews DO CHIEF COMPLAINT: Shortness of breath HPI: The patient is a 63-year-old female who has a history of COPD who presented to the emergency department for an evaluation of shortness of breath. The patient states she started having symptoms on of last week. She started taking her rescue pack which included a steroid. She is not currently on an antibiotic. She states she does not have a productive cough. She denies having any hemoptysis. She does complain of some lower extremity swelling but she thinks it is because she has not been able to take her fluid pills today. She started having vomiting because of the coughing. She is compliant with her enoxaparin that she is taking because of a history of venous thromboembolic disease. The patient has had no syncope. She states she was not able to take her anxiety medication and would like a dose here. ROS: See above HPI for pertinent positives & negatives. A total of 10 systems reviewed and were otherwise negative. PAST MEDICAL HISTORY: See Below PAST SURGICAL HISTORY: See Below FAMILY HISTORY: See Below SOCIAL HISTORY: See Below HOME MEDICATIONS: See Below ALLERGIES: See Below VITALS: See Below PHYSICAL EXAMINATION: GENERAL: The patient is awake and alert. She is very anxious appearing. EYES: The conjunctivae are clear. The pupils are round and reactive. EARS, NOSE, MOUTH AND THROAT: The nose is without any evidence of any deformity. NECK: The neck is nontender and supple. RESPIRATORY: Diminished breath sounds are noted throughout. There were diminished breath sounds in all lung soriano. There was conversational dyspnea. CARDIOVASCULAR: Regular rate and rhythm noted there no murmurs rubs or gallops normal S1 normal S2. GASTROINTESTINAL: The abdomen is soft. Abdomen is nontender. MUSCULOSKELETAL/EXTREMITIES: There is no evidence of gross deformity full range of motion is noted in the hips and shoulders. SKIN: There is no obvious evidence of any rash. There are no petechiae, pallor or cyanosis noted. NEUROLOGIC: Patient is awake alert and oriented x3 MEDICAL DECISION MAKING: The patient is a 63-year-old female who presented to the emergency department for shortness of breath. The patient states that her symptoms appear to be consistent with her COPD. History and physical exam do appear to be consistent with COPD exacerbation. I discussed patient's laboratory and radiographic studies with her. She was not found to have fever or productive cough. She was treated with an hour-long DuoNeb as well as IV steroids. She was reevaluated and still had significant symptoms. I discussed the patient's condition with the on-call [facility]ist. They have agreed to evaluate the patient in the emergency department for further management and disposition. Triage Nursing notes reviewed. Prior medical records reviewed Vital Signs: reviewed and remarkable for hypoxia. Differential diagnosis: Reactive airway disease, pneumonia, pneumothorax, COPD, CHF, infections, cardiac ischemia, pulmonary embolism, musculoskeletal, gastrointestinal, as well as other pathologies. ER treatment provided: See below Diagnostics interpreted by me: ECG: EKG was obtained in the emergency department. My interpretation is sinus tachycardia at 102 bpm. There is no ectopy. Poor R wave progression was noted with inferior Q waves. This was compared to a tracing from July 28, 2023. No changes were noted. Cardiac Monitoring: An order was placed for continuous cardiac monitoring. The monitor shows a rate of 98 bpm with sinus rhythm. Laboratory studies: As stated above and show below. Imaging studies: See below. Radiographic imaging was reviewed by myself Consultation(s): I discussed this case with Amari who is on for the [facility]ist group. ED COURSE: Procedures: none Critical Care: I have personally spent greater than 45 minutes of critical care time in the direct management of this patient. This includes bedside care, interpretation of diagnostic studies, and testing, discussion with consultants, patient, and family members, and other required patient management activities. This 45 minutes is in excess of all separately billable procedures. Past Med/Surg History Medical History Chronic anticoagulation Obesity hypoventilation syndrome Tobacco abuse Opiate dependence Diabetes History of pulmonary embolism Acute heart failure with preserved ejection fraction (HFpEF) Asthma COPD (chronic obstructive pulmonary disease) Multiple myeloma Surgical History No pertinent past surgical history Social History Smoking Status: Current every day smoker Tobacco Type: Cigarettes Cigarettes Per Day: 1/2 pack; Second Hand Exposure: Yes; Do You Dip or Chew Tobacco: No; Hx Alcohol Use: No Hx Substance Use: No Preferred Language: [place] Islander Communication Ability: Effective Fire Prevention Forester Required: No Beliefs That Will Affect Care: None Current Living Situation: Family Current Living Situation Comment: lives with sister temporarily Feels Safe at Home: Yes Assistive Devices: Oxygen - at Night Allergies Allergies Allergy/AdvReac Type Severity Reaction Status Date / Time codeine Allergy Severe Anaphylaxis Verified 07/28/23 16:06 Iodinated Contrast Media Allergy Severe Anaphylaxis Verified 07/28/23 16:06 shellfish derived Allergy Severe Anaphylaxis Verified 07/28/23 16:06 tramadol Allergy Intermediate ITCHINESS Verified 07/28/23 16:06 iohexol Allergy Unknown CAN'T Verified 07/28/23 16:06 REMEMBER diphenhydramine AdvReac Severe Anxiety Verified 07/28/23 16:06 [From Benadryl] montelukast [From Singulair] AdvReac Intermediate Anxiety Verified 07/28/23 16:06 promethazine AdvReac Intermediate Anxiety Verified 07/28/23 16:06 Home Meds Home Medications Medication Instructions Recorded Confirmed buprenorphine 8 mg-naloxone 2 mg 1 film sublingual BID 05/14/22 07/28/23 sublingual film nystatin 100,000 unit/gram topical 1 applic topical BID PRN UNDER 05/14/22 07/28/23 powder BREASTS NEEDED. ondansetron HCl 4 mg tablet 4 mg PO Q8H PRN NAUSEA/VOMITING 05/14/22 07/28/23 quetiapine 200 mg tablet 200 mg PO HS 05/14/22 07/28/23 insulin glargine 100 unit/mL (3 60 unit subcut QAM 06/21/22 07/28/23 mL) subcutaneous pen ipratropium bromide 0.02 % 3 ml continuous nebulization QID 01/16/23 07/28/23 solution for inhalation levalbuterol HCl 1.25 mg/3 mL 1.25 mg inhalation TID PRN 01/16/23 07/28/23 solution for nebulization Shortness Of Breath Or Wheezing bumetanide 2 mg tablet 4 mg PO BID 03/02/23 07/28/23 enoxaparin 150 mg/mL subcutaneous 150 mg subcut QAM 05/07/23 07/28/23 syringe fluticasone fur. 200 mcg-umeclid 1 ea inhalation QAM 05/07/23 07/28/23 62.5 mcg-vilant 25 mcg inhalat.powder (Trelegy Ellipta) insulin aspart U-100 100 unit/mL 10 unit subcut AC 05/07/23 07/28/23 (3 mL) subcutaneous pen (Novolog FlexPen U-100 Insulin aspart) levalbuterol tartrate 45 2 puff inhalation Q4 PRN WHEEZE 05/07/23 07/28/23 mcg/actuation aerosol inhaler semaglutide 0.25 mg or 0.5 mg (2 0.25 mg subcut WK 07/10/23 07/28/23 mg/3 mL) subcutaneous pen injector (Ozempic) metolazone 5 mg tablet 5 mg PO 3XWK 07/28/23 07/28/23 Previous Rx's Medication Instructions Recorded alprazolam 0.5 mg tablet 0.5 mg PO TID #14 tabs 08/02/23 potassium chloride 20 mEq See Rx Instructions .Route 08/02/23 tablet,extended release(part/cryst) .COMPLEX #90 tabs prednisone 10 mg tablet See Taper PO DIRECTED #10 tabs 08/02/23 sennosides 8.6 mg tablet (Senokot) 8.6 - 17.2 mg (1 - 2 x 8.6 mg) PO 08/02/23 QAM constipation #60 tabs Results & Data (ED) Vital Signs Vital Signs - 24 hr 08/16/23 13:44 08/16/23 13:54 08/16/23 13:58 Temperature 36.8 C Temperature Source Temporal Artery Scan Pulse Rate 102 H 106 H Pulse Rate [Finger] Pulse Rate from SpO2 Sensor 102 H Pulse Rhythm Pulse Rhythm [Finger] Pulse Strength [Finger] Respiratory Rate 18 19 Respiratory Effort / Characteristics Non-Labored Spontaneous Respiratory Depth Normal Respiratory Pattern Blood Pressure 111/69 Blood Pressure [Left Arm] Blood Pressure Mean 83 Blood Pressure Mean [Left Arm] Blood Pressure Position Sitting Pulse Oximetry 98 92 94 Oxygen Delivery Method Room Air Room Air Sepsis Recent Fever Within 48 Hours No Sepsis New/Unexplained Change in Mental Status N/A Sepsis Action Taken by Nursing No Action Required 08/16/23 13:58 08/16/23 14:00 08/16/23 14:01 Temperature Temperature Source Pulse Rate 102 H Pulse Rate [Finger] 102 H Pulse Rate from SpO2 Sensor 102 H Pulse Rhythm Pulse Rhythm [Finger] Regular Pulse Strength [Finger] Normal Respiratory Rate 24 15 Respiratory Effort / Characteristics Short of Breath Short of Breath SOB on Exertion Respiratory Depth Normal Respiratory Pattern Tachypnea Tachypnea Blood Pressure Blood Pressure [Left Arm] 115/89 Blood Pressure Mean Blood Pressure Mean [Left Arm] 97 Blood Pressure Position Pulse Oximetry 94 94 Oxygen Delivery Method Room Air Room Air Sepsis Recent Fever Within 48 Hours Sepsis New/Unexplained Change in Mental Status Sepsis Action Taken by Nursing 08/16/23 14:01 08/16/23 14:01 08/16/23 14:03 Temperature Temperature Source Pulse Rate 102 H 100 H Pulse Rate [Finger] Pulse Rate from SpO2 Sensor 102 H Pulse Rhythm Pulse Rhythm [Finger] Pulse Strength [Finger] Respiratory Rate 16 Respiratory Effort / Characteristics Respiratory Depth Respiratory Pattern Blood Pressure 129/87 Blood Pressure [Left Arm] Blood Pressure Mean 92 Blood Pressure Mean [Left Arm] Blood Pressure Position Pulse Oximetry 94 Oxygen Delivery Method Sepsis Recent Fever Within 48 Hours Sepsis New/Unexplained Change in Mental Status Sepsis Action Taken by Nursing 08/16/23 14:05 08/16/23 14:10 08/16/23 14:20 Temperature Temperature Source Pulse Rate 101 H 97 H 98 H Pulse Rate [Finger] Pulse Rate from SpO2 Sensor 97 H 98 H Pulse Rhythm Regular Pulse Rhythm [Finger] Pulse Strength [Finger] Respiratory Rate 26 H 14 18 Respiratory Effort / Characteristics Respiratory Depth Respiratory Pattern Blood Pressure Blood Pressure [Left Arm] Blood Pressure Mean Blood Pressure Mean [Left Arm] Blood Pressure Position Pulse Oximetry 94 90 93 Oxygen Delivery Method Room Air Sepsis Recent Fever Within 48 Hours Sepsis New/Unexplained Change in Mental Status Sepsis Action Taken by Nursing 08/16/23 14:24 08/16/23 14:30 08/16/23 14:30 Temperature Temperature Source Pulse Rate 94 H Pulse Rate [Finger] 96 H Pulse Rate from SpO2 Sensor 95 H Pulse Rhythm Pulse Rhythm [Finger] Pulse Strength [Finger] Respiratory Rate 19 19 Respiratory Effort / Characteristics Non-Labored Spontaneous Respiratory Depth Respiratory Pattern Blood Pressure 124/96 Blood Pressure [Left Arm] Blood Pressure Mean 105 Blood Pressure Mean [Left Arm] Blood Pressure Position Pulse Oximetry 96 97 Oxygen Delivery Method Room Air Sepsis Recent Fever Within 48 Hours Sepsis New/Unexplained Change in Mental Status Sepsis Action Taken by Nursing 08/16/23 14:40 08/16/23 14:50 08/16/23 15:00 Temperature Temperature Source Pulse Rate 97 H 94 H 97 H Pulse Rate [Finger] Pulse Rate from SpO2 Sensor 98 H 94 H 98 H Pulse Rhythm Pulse Rhythm [Finger] Pulse Strength [Finger] Respiratory Rate 27 H 20 22 Respiratory Effort / Characteristics Respiratory Depth Respiratory Pattern Blood Pressure Blood Pressure [Left Arm] Blood Pressure Mean Blood Pressure Mean [Left Arm] Blood Pressure Position Pulse Oximetry 97 95 98 Oxygen Delivery Method Sepsis Recent Fever Within 48 Hours Sepsis New/Unexplained Change in Mental Status Sepsis Action Taken by Nursing 08/16/23 15:00 08/16/23 15:10 08/16/23 15:20 Temperature Temperature Source Pulse Rate 96 H 97 H Pulse Rate [Finger] Pulse Rate from SpO2 Sensor 97 H 97 H Pulse Rhythm Pulse Rhythm [Finger] Pulse Strength [Finger] Respiratory Rate 19 15 Respiratory Effort / Characteristics Respiratory Depth Respiratory Pattern Blood Pressure 158/92 H Blood Pressure [Left Arm] Blood Pressure Mean 107 Blood Pressure Mean [Left Arm] Blood Pressure Position Pulse Oximetry 95 96 Oxygen Delivery Method Sepsis Recent Fever Within 48 Hours Sepsis New/Unexplained Change in Mental Status Sepsis Action Taken by Nursing 08/16/23 15:30 08/16/23 15:35 08/16/23 15:35 Temperature Temperature Source Pulse Rate 98 H 97 H Pulse Rate [Finger] Pulse Rate from SpO2 Sensor 97 H 97 H Pulse Rhythm Pulse Rhythm [Finger] Pulse Strength [Finger] Respiratory Rate 20 18 Respiratory Effort / Characteristics Respiratory Depth Respiratory Pattern Blood Pressure 123/88 123/88 Blood Pressure [Left Arm] Blood Pressure Mean 99 105 Blood Pressure Mean [Left Arm] Blood Pressure Position Pulse Oximetry 95 95 Oxygen Delivery Method Sepsis Recent Fever Within 48 Hours Sepsis New/Unexplained Change in Mental Status Sepsis Action Taken by Nursing 08/16/23 15:40 08/16/23 15:50 Temperature Temperature Source Pulse Rate 97 H 99 H Pulse Rate [Finger] Pulse Rate from SpO2 Sensor 97 H 99 H Pulse Rhythm Pulse Rhythm [Finger] Pulse Strength [Finger] Respiratory Rate 20 19 Respiratory Effort / Characteristics Respiratory Depth Respiratory Pattern Blood Pressure Blood Pressure [Left Arm] Blood Pressure Mean Blood Pressure Mean [Left Arm] Blood Pressure Position Pulse Oximetry 95 90 Oxygen Delivery Method Sepsis Recent Fever Within 48 Hours Sepsis New/Unexplained Change in Mental Status Sepsis Action Taken by Snf Medications Current Medication List: was personally reviewed by me Laboratory Data Attestation: I reviewed the patient's lab results. 08/16/23 13:55 08/16/23 13:55 Lab Results 08/16/23 08/16/23 Range/Units 13:55 14:29 WBC 16.16 H (4.8-10.8) K/ul RBC 6.34 H (4.20-5.40) M/uL Hgb 16.5 H (12.0-16.0) g/dl Hct 50.7 H (37.0-47.0) % MCV 80.0 (80.0-100.0) fL MCH 26.0 (25.0-34.0) pg MCHC 32.5 (32.0-36.0) g/dL RDW Std Deviation 43.8 (36.4-46.3) fL RDW Coeff of Malick 16.9 H (11.5-14.5) % Plt Count 329 (130-400) K/uL MPV 9.7 (9.4-12.4) fL Immature Gran % (Auto) 0.3 % Neut % (Auto) 79.4 % Lymph % (Auto) 16.8 % [place] % (Auto) 2.7 % Eos % (Auto) 0.4 % Baso % (Auto) 0.4 % Neut # (Auto) 12.83 H (1.40-6.50) K/uL Lymph # (Auto) 2.72 (1.20-3.40) K/uL [place] # (Auto) 0.44 (0.11-0.59) K/uL Eos # (Auto) 0.06 (0.00-0.50) K/uL Baso # (Auto) 0.06 (0.00-0.20) K/uL Immature Gran # (Auto) 0.05 (0.01-0.20) K/uL PT 11.3 (9.0-12.0) Seconds INR 1.0 (0.9-1.1) APTT 31 (21-31) Seconds PTT Ratio 1.1 VBG pH 7.47 H (7.36-7.41) VBG pCO2 57 H (38-50) mmHg VBG pO2 62 mmHg VBG HCO3 42 mmol/L VBG O2 Saturation 93.0 % VBG Base Excess 15.1 mEq/L Sodium 134 L (136-145) mmol/L Potassium 3.5 (3.5-5.1) mmol/L Chloride 88 L (98-107) mmol/L Carbon Dioxide 36 H (21-32) mmol/L Anion Gap 10 (3-11) BUN 29 H (6-23) mg/dl Creatinine 1.00 (0.6-1.2) mg/dl Est Cr Clr Drug Dosing 61.8 ml/min Est GFR ( Amer) 69.9 ml/min Est GFR (Non-Af Amer) 60.3 ml/min BUN/Creatinine Ratio 29.0 H (10-20) Glucose 208 H (70-99(Fasting)) mg/dl Calcium 9.3 (8.6-10.3) mg/dl Magnesium 1.9 (1.7-2.4) mg/dl Total Bilirubin 0.5 (0.2-1.0) mg/dl AST 13 (13-39) U/L ALT 15 (7-52) U/L Alkaline Phosphatase 100 (34-104) U/L Troponin I High Sens 14.1 H (0-14) pg/ml Total Protein 7.4 (6.0-8.3) gm/dl Albumin 4.1 (3.4-5.0) gm/dl Globulin 3.3 (2.5-4.0) gm/dl Albumin/Globulin Ratio 1.2 (0.9-2) SARS-CoV-2 (PCR) NEGATIVE (Negative) Influenza Type A (PCR) Negative (Neg) Influenza Type B (PCR) Negative (Neg) RSV (RT-PCR) Negative (Neg) Administered Medications Discontinued Medications Albuterol (Albut/Ipratrop 3mg/0.5mg Neb 3 Ml Vial) 12 ml INH ONE STA Stop: 08/16/23 14:02 Last Admin: 08/16/23 14:24 Dose: 12 ml Documented By: SARWAT Lorazepam (Lorazepam 1 Mg Tab) 1 mg PO NOW STA Stop: 08/16/23 14:16 Last Admin: 08/16/23 14:19 Dose: 1 mg Documented By: ARELI Methylprednisolone (Methylprednisolone 125 Mg/2 Ml Vial) 125 mg IV NOW STA Stop: 08/16/23 14:02 Last Admin: 08/16/23 14:12 Dose: 125 mg Documented By: [facility] Imaging Data Attestation: I personally reviewed and interpreted this imaging study as follows: My Impression: 1 view chest x-ray was obtained in the emergency department. My interpretation is no free air or definite infiltrate, final report below Radiologist's Impression: Chest X-Ray 08/16/23 14:01 XR chest 1V portable CLINICAL HISTORY: Dyspnea COMPARISON STUDY: Chest radiograph July 28, 2023. FINDINGS: Lung volumes are normal. There is no consolidation to suggest pneumonia. Linear bibasilar densities favor atelectasis or scarring. There is no pneumothorax or pleural effusion. Cardiac size is normal. Mediastinal contours are normal. There is no evidence for pulmonary edema. Deformity/expansion of the anterior right fourth rib remains unchanged. IMPRESSION: No acute cardiopulmonary findings. No change in appearance of the chest. ACT 112: Negative or not required by law. Electronically signed by: Hipolito Sevilla M.D. 08/16/2023 2:19 PM Discharge Plan Visit Data Chief Complaint: Respiratory Problems Stated Complaint: SEVERE COPD - STRUGGLING TO BREATHE/NASEOUS ED Provider: José Miguel Mathews Discharge Problem: Acute exacerbation of chronic obstructive pulmonary disease, Hypoxia Patient Disposition: Being Evaluated by Hospitalist Forms Stand Alone Forms: My [facility] Prescriptions Prescriptions: No Action Ozempic 0.25 mg or 0.5 mg (2 mg/3 mL) pen injector 0.25 mg subcut WK Rx Instructions: FRIDAYS---2 MORE DOSES AT 0.25 MG/WK, THEN INCREASES TO 0.5 MG/WK. ondansetron HCl 4 mg Tablet 4 mg PO Q8H PRN (Reason: NAUSEA/VOMITING) quetiapine 200 mg tablet 200 mg PO HS nystatin 100,000 unit/gram Powder 1 applic TOPICAL BID PRN (Reason: UNDER BREASTS NEEDED.) buprenorphine-naloxone 8-2 mg film 1 film sublingual BID insulin glargine 100 unit/mL (3 mL) insulin pen 60 unit SUBCUT QAM bumetanide 2 mg tablet 4 mg PO BID enoxaparin 150 mg/mL syringe 150 mg subcut QAM insulin aspart U-100 [Novolog FlexPen U-100 Insulin] 100 unit/mL (3 mL) insulin pen 10 unit SUBCUT AC Trelegy Ellipta 200-62.5-25 mcg blister with device 1 ea INHALATION QAM levalbuterol tartrate 45 mcg/actuation HFA aerosol inhaler 2 puff INHALATION Q4 PRN (Reason: WHEEZE) levalbuterol HCl 1.25 mg/3 mL solution for nebulization 1.25 mg INHALATION TID PRN (Reason: Shortness Of Breath Or Wheezing) ipratropium bromide 0.02 % solution 3 ml continuous nebulization QID metolazone 5 mg tablet 5 mg PO 3XWK Rx Instructions: 5 mg orally on Mondays, Wednesdays, and Fridays sennosides [Senokot] 8.6 mg Tablet 8.6 - 17.2 mg PO QAM Qty: 60 0RF Rx Instructions: may buy over the counter prednisone 10 mg tablet See Taper PO DIRECTED Qty: 10 0RF Taper: Taper, Blank 40 mg DAILY for 1 Day 20 mg DAILY for 2 Days 10 mg DAILY for 1 Day 5 mg DAILY for 2 Days Rx Instructions: see taper instructions alprazolam 0.5 mg tablet 0.5 mg PO TID Qty: 14 0RF Rx Instructions: pt requesting to take same time as suboxone potassium chloride 20 mEq Tablet,Er Particles/Crystals See Rx Instructions .ROUTE .COMPLEX Qty: 90 0RF Rx Instructions: 2 tabs in AM and 1 tab in afternoon/evening Referrals Referrals: Radha Barboza PA-C [Primary Care Provider] -
[2023-08-16] MEDS: ALBUT/IPRATROP 3MG/0.5MG NEB 3 ML VIAL INH STA (14:24)
[2023-08-16 14:31] LABS: Albumin Globulin Ratio 1.2 (0.9-2); Albumin Level 4.1 gm/dl (3.4-5.0); Bilirubin,Total 0.5 mg/dl (0.2-1.0); Calcium 9.3 mg/dl (8.6-10.3); Creatinine Clr Calc Pharmacy 61.8 ml/min; Est GFR (African American) 69.9 ml/min; Est GFR (Non-African American) 60.3 ml/min; Globulin 3.3 gm/dl (2.5-4.0); Magnesium 1.9 mg/dl (1.7-2.4); Potassium 3.5 mmol/L (3.5-5.1); Total Protein 7.4 gm/dl (6.0-8.3)
[2023-08-16 14:38] LABS: Partial Thromboplastin Ratio 1.1; Partial Thromboplastin Time 31 Seconds (21-31); Prothrombin Time 11.3 Seconds (9.0-12.0)
[2023-08-16 14:49] LABS: Base Excess VBG 15.1 mEq/L; HCO3 VBG 42 mmol/L; PCO2 VBG 57 mmHg (38-50); PO2 VBG 62 mmHg; pH VBG 7.47 (7.36-7.41)
[2023-08-16 14:59] LABS: Influenza A virus by PCR Negative (Neg); Influenza B virus by PCR Negative (Neg); RSV by PCR Negative (Neg); SARS CoV2 RNA(COVID-19) Ceph NEGATIVE (Negative)
[2023-08-16 15:25] LABS: Troponin I High Sensitivity 14.1 pg/ml (0-14)
--- NOTE | 2023-08-16 16:09 | History & Physical Report ---
Date of Service August 16, 2023 Assessment & Plan (1) Acute exacerbation of chronic obstructive pulmonary disease: Plan: -Admit to med/tele on pulse oximetry -Currently stable on her baseline 2L NC and in no respiratory distress -This will be her 4th admission since April, she does not have signs of volume overload or other sources to cause her ongoing respiratory issues -She knows that she needs to completely stop smoking but is having a very hard time with this -S/P 125 mg IV solu-medrol, an hour-long DuoNeb treatment, and 1mg PO ativan in the ED -Will continue with the following regimen: >40 mg IV Solu-medrol TID >Will give a dose of Azithromycin now then continue daily >QIDr Duonebs >BIDr Budesonide and Formoterol nebs >BID Guaifenesin >Incentive spirometry, flutter therapy, Sputum Culture w/gram stain >PRN O2 to keep SpO2 between 89-92% -Continue to stress the importance of smoking cessation -Home lovenox for DVT PPX -HH/DMII diet with 2gm Sodium restriction -AM CBC, BMP, mag, PT/INR (2) Opiate dependence: Plan: -Continue Suboxone (3) Diabetes: Plan: -Monitor BSG ACHS, goal is 110-160 -Will likely be hyperglycemic with systemic steroids -Normally takes 60 units lantus in the am, will switch to 30 units BID for now -Start CF of 45 and CR of 15 -Pharmacy glycemic consult placed (4) Tobacco abuse: Plan: -Continue to stress the importance of Cessation (5) History of pulmonary embolism: Plan: -Continue home lovenox -Denies recently missed doses Plan The patient was discussed with Dr. Linton at the time of the admission History of Present Illness Chief Complaint: SOB Primary Care Provider: Radha Barboza Janae Monzon is 63yo female with multiple medical comorbidities to include COPD on supplemental O2 2L NC HS, ongoing tobacco use, HFpEF, DM, prior PE on Lovenox, obesity hypoventilation syndrome, opioid dependence (on Suboxone), DMII, and anxiety who presented to the [facility] ED on 08/16/23 with a chief complaint of progressive SOB, cough, and nausea. Noted to be tachypneic at 27, tachycardic at 106, but otherwise stable. Labs were significant for a leukocytosis of 16 with neutrophil predominance of 12, VBG pH of 7.47. pCO2 of 57, pO2 of 62, initial high sen trop of 14, and covid19/influenza/RSV negative. Chest xray was read as "No acute cardiopulmonary findings. No change in appearance of the chest.". Prior to admission the patient was given an hour long duoneb treatment, 125 mg IV solu-medrol, and 1mg PO Ativan. Patient was sitting in bed in no acute distress at the time of the exam. States she started to notice her respiratory status declining approximally 5 days ago. Started using 10 mg Prednisone tabs she had a home on 08/13 (has been taking 0ne tab daily, last tab was this am). Denies recent fever, chills, chest pain, hemoptysis, abd pain, dysuria, hematuria, melena, LE swelling, and recent trauma. Still smoking 3 cigarettes daily, having a very hard time completely stopping. Does not like the way Nicotine patches make her feel. States she feels like she needs to have a Cigarette in her hand when doing her normal routine as she has been smoking since the age of 15. I recommended she look into FUM, which is a new, FDA compliant, flavored air device which is designed to help with other aspects of cigarette dependence like hand-mouth fixation, anxiety with a fidget mechanism, and flavored air (not smoke or vapor). She states she will look into this. She has had some improvement in her respiratory symptoms after initial treatment in the ED. She is a full code. Please refer to Dr. Linton's attestation for any changes to the treatment plan Allergies Allergy/AdvReac Type Severity Reaction Status Date / Time codeine Allergy Severe Anaphylaxis Verified 08/16/23 17:34 Iodinated Contrast Media Allergy Severe Anaphylaxis Verified 08/16/23 17:34 shellfish derived Allergy Severe Anaphylaxis Verified 08/16/23 17:34 tramadol Allergy Intermediate ITCHINESS Verified 08/16/23 17:34 iohexol Allergy Unknown CAN'T Verified 08/16/23 17:34 REMEMBER diphenhydramine AdvReac Severe Anxiety Verified 08/16/23 17:34 [From Benadryl] montelukast [From Singulair] AdvReac Intermediate Anxiety Verified 08/16/23 17:34 promethazine AdvReac Intermediate Anxiety Verified 08/16/23 17:34 Home Medications Medication Instructions Recorded Confirmed Type buprenorphine 8 mg-naloxone 2 mg 1 film sublingual BID 05/14/22 08/16/23 History sublingual film nystatin 100,000 unit/gram topical 1 applic topical BID PRN UNDER 05/14/22 08/16/23 History powder BREASTS NEEDED. ondansetron HCl 4 mg tablet 4 mg PO Q8H PRN NAUSEA/VOMITING 05/14/22 08/16/23 History quetiapine 200 mg tablet 200 mg PO HS 05/14/22 08/16/23 History insulin glargine 100 unit/mL (3 60 unit subcut QAM 06/21/22 08/16/23 History mL) subcutaneous pen ipratropium bromide 0.02 % 3 ml continuous nebulization QID 01/16/23 08/16/23 History solution for inhalation levalbuterol HCl 1.25 mg/3 mL 1.25 mg inhalation TID PRN 01/16/23 08/16/23 History solution for nebulization Shortness Of Breath Or Wheezing bumetanide 2 mg tablet 4 mg PO BID 03/02/23 08/16/23 History enoxaparin 150 mg/mL subcutaneous 150 mg subcut QAM 05/07/23 08/16/23 History syringe fluticasone fur. 200 mcg-umeclid 1 ea inhalation QAM 05/07/23 08/16/23 History 62.5 mcg-vilant 25 mcg inhalat.powder (Trelegy Ellipta) insulin aspart U-100 100 unit/mL 10 unit subcut AC 05/07/23 08/16/23 History (3 mL) subcutaneous pen (Novolog FlexPen U-100 Insulin aspart) levalbuterol tartrate 45 2 puff inhalation Q4 PRN WHEEZE 05/07/23 08/16/23 History mcg/actuation aerosol inhaler metolazone 5 mg tablet 5 mg PO 3XWK 07/28/23 08/16/23 History alprazolam 0.5 mg tablet 0.5 mg PO TID #14 tabs 08/02/23 08/16/23 Rx potassium chloride 20 mEq See Rx Instructions .Route 08/02/23 08/16/23 Rx tablet,extended release(part/cryst) .COMPLEX #90 tabs prednisone 10 mg tablet 0 mg PO DIRECTED PRN flare ups 08/16/23 08/16/23 History Past Med/Surg History Medical History (Updated 08/16/23 @ 16:44 by Amari Macias PA-C) History of pulmonary embolism Chronic anticoagulation Obesity hypoventilation syndrome Tobacco abuse Opiate dependence Diabetes Acute heart failure with preserved ejection fraction (HFpEF) Asthma COPD (chronic obstructive pulmonary disease) Multiple myeloma Surgical History No pertinent past surgical history Social History Smoking Status: Current every day smoker Tobacco Type: Cigarettes Cigarettes Per Day: 1/2 pack per day; Second Hand Exposure: Yes; Do You Dip or Chew Tobacco: No; Tobacco Cessation Education Requested by Patient: No Hx Alcohol Use: No Hx Substance Use: No Preferred Language: Pashto Communication Ability: Effective Formulation Scientist Required: No Beliefs That Will Affect Care: None Current Living Situation: Family Current Living Situation Comment: lives with sister temporarily Other Information That Helps Us Care for You: No Feels Safe at Home: Yes Safety Concerns: Feels Safe At This Time Assistive Devices: Oxygen - at Night and Oxygen - Continuous Physical Exam Physical Exam: Physical Exam: General: In no acute distress, stated age, chronically ill-appearing HEENT: Normocephalic, atraumatic, no scleral icterus, pupils around round, symmetrical, and reactive to light, no JVD, moist mucus membranes, trachea midline, no thyromegaly Chest/Pulm: No respiratory distress, symmetrical chest expansion, scattered expiratory wheezing Cardiac: RRR, no murmurs noted Abdomen: Negative for ascites and bruising, normoactive bowel sounds, soft, non-tender to palpation throughout Musculoskeletal: Symmetrical and without signs of acute trauma, upper and lower extremities with full ROM, no atrophy, spasticity, or flaccidity Extremities: Radial, dorsalis pedis, and posterior tibial pulses are intact and symmetrical, no edema noted in the BL LE's Skin: Warm, dry, no rashes , lesions, or scars noted Neuro: Alert and oriented to person, place, month, year, and president, no focal defects, no tremors noted Psych: No acute distress, calm and cooperative during the exam Results & Data Results & Data Vital Signs (Past 12 Hours) Vital Signs Temp Pulse Pulse Resp BP BP Pulse Ox 08/16/23 15:50 99 H 19 90 08/16/23 15:40 97 H 20 95 08/16/23 15:35 123/88 08/16/23 15:35 97 H 18 123/88 95 08/16/23 15:30 98 H 20 95 08/16/23 15:20 97 H 15 96 08/16/23 15:10 96 H 19 95 08/16/23 15:00 158/92 H 08/16/23 15:00 97 H 22 98 08/16/23 14:50 94 H 20 95 08/16/23 14:40 97 H 27 H 97 08/16/23 14:30 94 H 19 97 08/16/23 14:30 124/96 08/16/23 14:24 96 H 19 96 08/16/23 14:20 98 H 18 93 08/16/23 14:10 97 H 14 90 08/16/23 14:05 101 H 26 H 94 08/16/23 14:03 100 H 08/16/23 14:01 129/87 08/16/23 14:01 102 H 16 94 08/16/23 14:01 08/16/23 14:00 102 H 15 94 08/16/23 13:58 102 H 24 115/89 94 08/16/23 13:58 94 08/16/23 13:54 106 H 19 92 08/16/23 13:44 36.8 C 102 H 18 111/69 98 O2 Del Method 08/16/23 15:50 08/16/23 15:40 08/16/23 15:35 08/16/23 15:35 08/16/23 15:30 08/16/23 15:20 08/16/23 15:10 08/16/23 15:00 08/16/23 15:00 08/16/23 14:50 08/16/23 14:40 08/16/23 14:30 08/16/23 14:30 08/16/23 14:24 Room Air 08/16/23 14:20 08/16/23 14:10 08/16/23 14:05 Room Air 08/16/23 14:03 08/16/23 14:01 08/16/23 14:01 08/16/23 14:01 Room Air 08/16/23 14:00 08/16/23 13:58 Room Air 08/16/23 13:58 Room Air 08/16/23 13:54 08/16/23 13:44 Room Air Laboratory Results Abnormal lab results 08/16/23 08/16/23 Range/Units 13:55 14:29 WBC 16.16 H (4.8-10.8) K/ul RBC 6.34 H (4.20-5.40) M/uL Hgb 16.5 H (12.0-16.0) g/dl Hct 50.7 H (37.0-47.0) % RDW Coeff of Malick 16.9 H (11.5-14.5) % Neut # (Auto) 12.83 H (1.40-6.50) K/uL VBG pH 7.47 H (7.36-7.41) VBG pCO2 57 H (38-50) mmHg Sodium 134 L (136-145) mmol/L Chloride 88 L (98-107) mmol/L Carbon Dioxide 36 H (21-32) mmol/L BUN 29 H (6-23) mg/dl BUN/Creatinine Ratio 29.0 H (10-20) Glucose 208 H (70-99(Fasting)) mg/dl Troponin I High Sens 14.1 H (0-14) pg/ml Diagnostic Findings Chest X-Ray 08/16/23 14:01 XR chest 1V portable CLINICAL HISTORY: Dyspnea COMPARISON STUDY: Chest radiograph July 28, 2023. FINDINGS: Lung volumes are normal. There is no consolidation to suggest pneumonia. Linear bibasilar densities favor atelectasis or scarring. There is no pneumothorax or pleural effusion. Cardiac size is normal. Mediastinal contours are normal. There is no evidence for pulmonary edema. Deformity/expansion of the anterior right fourth rib remains unchanged. IMPRESSION: No acute cardiopulmonary findings. No change in appearance of the chest. ACT 112: Negative or not required by law. Electronically signed by: Hipolito Sevilla M.D. 08/16/2023 2:19 PM ECG Additional Comments: Sinus tachycardia Inferior infarct , age undetermined Anterior infarct (cited on or before 28-JUL-2023) Abnormal ECG When compared with ECG of 28-JUL-2023 15:39, Serial changes of evolving Anterior infarct Present Code Status & VTE Plan Code Status Full code VTE Prophylaxis Plan VTE Prophylaxis will be ordered: Yes Supervising Physician Co-Signing Physician Notes I personally saw and examined the patient. I verified all rosario points and agree with Amari Macias PA-C with the following exceptions and/or additions: 63 year old female with COPD presents to the ER with worsening shortness of breath over the last 5 days. Repeated hospitalization for COPD exacerbation and she feels similar to her prior admissions with this. O/E HS RRR, no murmurs, no respiratory distress, inspiratory and expiratory wheezing throughout, Abdo SNT A/P COPD exacerbation - Solu-medrol 125mg IV then 40mg BID, duonebs, budesonide/formoterol nebs BID, azithromycin PG Care Time/CCT Total # of Minutes Spent Total Time Spent with Patient: Total time spent is greater than 50% in coordination of care (as documented) at patient's floor/unit and/or counseling patient: Coding [place] [address] INT INP/OBS CARE 3/75MIN Patient Type Established Medical Decision Making High Complexity Diagnoses Acute exacerbation of chronic obstructive pulmonary disease J44.1 Opiate dependence F11.20 Diabetes E11.9 Tobacco abuse Z72.0 History of pulmonary embolism Z86.711
[2023-08-16] MEDS ORDERED: GLUCOSE 10 TAB/TUBE PO PRN (16:14)
[2023-08-16] MEDS ORDERED: DEXTROSE 50% 50 ML SYRINGE IV PRN (16:14)
[2023-08-16] MEDS ORDERED: GLUCOSE 40% GEL 15 GM TUBE PO PRN (16:14)
[2023-08-16] MEDS ORDERED: GLUCAGON FOR INJ 1 MG VIAL SQ PRN (16:14)
[2023-08-16] MEDS ORDERED: PHARMACY GLYCEMIC MGMT CONSULT PRN (16:14)
[2023-08-16] MEDS ORDERED: CARBOHYDRATES FOR HYPOGLYCEMIA PO PRN (16:14)
[2023-08-16] MEDS: MAGNESIUM SULFATE / D5W 1 GM/100 ML BAG IV SCH (16:37)
[2023-08-16] MEDS: AZITHROMYCIN 500 MG in DEXTROSE 5% 250 ML IV STA (17:07)
[2023-08-16] MEDS: PANTOprazole 40 MG TAB PO STA (17:09)
[2023-08-16] MEDS: INSULIN ASPART PER UNIT CHARGE SC SCH (18:02)
[2023-08-16] MEDS: ALPRAZolam 0.5 MG TABLET PO SCH (20:13)
[2023-08-16] MEDS: BUMETANIDE 1 MG TAB PO SCH (20:13)
[2023-08-16] MEDS: ALBUT/IPRATROP 3MG/0.5MG NEB 3 ML VIAL NEB SCH (20:13)
[2023-08-16] MEDS: LANTUS PER UNIT CHARGE SQ SCH (20:14)
[2023-08-16] MEDS: QUEtiapine FUMARATE 200 MG TAB PO SCH (20:14)
[2023-08-16] MEDS: BUDESONIDE 0.5 MG/2 ML VIAL (PULMICORT) NEB SCH (21:00)
[2023-08-16] MEDS: FORMOTEROL 20 MCG/2 ML VIAL NEB SCH (21:00)
[2023-08-16] MEDS ORDERED: LANTUS PER UNIT CHARGE SQ SCH (21:00)
[2023-08-16] MEDS: guaiFENesin 600 MG TABCR PO SCH (21:29)
[2023-08-16] MEDS: BUPRENORPHINE/NALOXONE 8/2 MG TAB SL SCH (21:29)
[2023-08-17] MEDS: INSULIN ASPART PER UNIT CHARGE SC SCH (00:47)
--- NOTE | 2023-08-17 06:07 | Electrocardiogram Report ---
Test Reason : Blood Pressure : / mmHG Vent. Rate : 102 BPM Atrial Rate : 102 BPM P-R Int : 148 ms QRS Dur : 078 ms QT Int : 350 ms P-R-T Axes : 019 029 045 degrees QTc Int : 456 ms Poor data quality, interpretation may be adversely affected Sinus tachycardia Inferior infarct , age undetermined Anterior infarct (cited on or before 28-JUL-2023) Abnormal ECG When compared with ECG of 28-JUL-2023 15:39, No significant change Confirmed by Juan Hardin ([id number]) on 08/17/2023 6:07:38 AM Referred By: REFERRED SELF Confirmed By:Juan Hardin
[2023-08-17 07:08] LABS: Basophils # (auto) 0.01 K/uL (0.00-0.20); Basophils % (auto) 0.1 %; Hematocrit (blood only) 44.1 % (37.0-47.0); Hemoglobin 14.7 g/dl (12.0-16.0); Immature Granulocytes % (auto) 0.7 %; Lymphocytes % (auto) 13.7 %; Mean Corpuscular Hemoglobin 25.9 pg (25.0-34.0); Mean Corpuscular Hgb Conc 33.3 g/dL (32.0-36.0); Mean Corpuscular Volume 77.6 fL (80.0-100.0); Mean Platelet Volume 9.8 fL (9.4-12.4); Monocytes # (auto) 0.48 K/uL (0.11-0.59); Monocytes % (auto) 3.1 %; Neutrophils # (auto) 12.66 K/uL (1.40-6.50); Neutrophils % (auto) 82.4 %; Platelet Count 308 K/uL (130-400); RDW Coefficient of Variation 15.4 % (11.5-14.5); RDW Standard Deviation 42.2 fL (36.4-46.3); Red Blood Count 5.68 M/uL (4.20-5.40); White Blood Count 15.35 K/ul (4.8-10.8)
[2023-08-17 07:23] LABS: Prothrombin Time 11.1 Seconds (9.0-12.0)
[2023-08-17 07:24] LABS: Albumin Globulin Ratio 1.4 (0.9-2); Albumin Level 3.8 gm/dl (3.4-5.0); Bilirubin,Total 0.4 mg/dl (0.2-1.0); Calcium 9.3 mg/dl (8.6-10.3); Creatinine Clr Calc Pharmacy 61.8 ml/min; Est GFR (African American) 69.9 ml/min; Est GFR (Non-African American) 60.3 ml/min; Globulin 2.8 gm/dl (2.5-4.0); Magnesium 2.3 mg/dl (1.7-2.4); Potassium 3.2 mmol/L (3.5-5.1); Total Protein 6.6 gm/dl (6.0-8.3)
[2023-08-17 07:52] LABS: Estimated Average Glucose 258 mg/dl; Hemoglobin A1C 10.6 % (4.5-5.6)
[2023-08-17] MEDS ORDERED: methylPREDNISolone 125 MG/2 ML VIAL IV SCH (09:00)
[2023-08-17 09:02] LABS: Troponin I High Sensitivity 10.6 pg/ml (0-14)
[2023-08-17] MEDS: LANTUS PER UNIT CHARGE SQ SCH ×2 (09:41→20:47)
[2023-08-17] MEDS: ENOXAPARIN 150 MG/ML SYR SQ SCH (09:45)
[2023-08-17] MEDS: metOLazone 5 MG TABLET PO SCH (09:45)
[2023-08-17] MEDS: methylPREDNISolone 40 MG in SYRINGE 0 ML IV SCH (09:45)
[2023-08-17] MEDS: POTASSIUM CHLORIDE CRTAB 20 MEQ TABCR PO SCH ×2 (09:47→19:57)
[2023-08-17] MEDS: PANTOprazole 40 MG TAB PO SCH (09:49)
--- NOTE | 2023-08-17 10:33 | Pharmacy Report ---
Pharmacy Glycemic Short Note 2 - Date of Service August 17, 2023 - Glycemic Short BSG Results (Last 24 hours): 08/16/23 08/16/23 08/16/23 13:55 17:55 21:05 Glucose 208 H POC Glucose 356 H* 396 H* 08/16/23 08/17/23 08/17/23 21:08 00:42 05:33 Glucose POC Glucose 350 H* 325 H* 216 H 08/17/23 08/17/23 05:35 08:19 Glucose 213 H POC Glucose 189 H OUTPATIENT ANTIDIABETIC REGIMEN: * Lantus 60 units AM, Novolog 10 TIDM + SSI, Ozempic ASSESSMENT: * 63 year old admitted with COPD exacerbation. Type 2 diabetic - patient received steroids on admission and also ongoing, anticipate steroid induced hyperglycemia. Pharmacy consulted for glycemic management. Patient received total of 114 units of insulin yesterday, BSGs >300s. * Fasting BSG trending down this AM 189 mg/dL - however did receive ~20 units of correctional insulin overnight. Patient did refuse PM Lantus last evening. * Will increase home basal this AM ~25% to account for steroids and overnight insulin given. Will increase to Lantus 75 units daily - will add scale for basal at HS as likely dose will need titrated with steroids. * Plan to tighten CF/CR this AM with ongoing steroids. Of note, when patient was on steroids prior admissions (solumedrol 40 mg daily) required close to ~150 units/day of insulin. Currently solumedrol 40 iv tid ordered, so likely will need even tighter coverage PLAN FOR INPATIENT GLYCEMIC CONTROL: * Hold outpatient oral diabetes medications * Basal insulin * Lantus 75 units daily * Lantus 0-10 units HS * Bolus insulin * NovoLog per scale ACHS or Q6hrs while NPO * Goal Range: Low 110 mg/dL - High 140 mg/dL * Correction Factor: 12 mg/dL/unit * Nutritional / Prandial insulin per carb ratio of 1 unit per 4 grams CHO consumed
--- NOTE | 2023-08-17 15:34 | Hospitalist Progress Note ---
Date of Service August 17, 2023 Assessment & Plan (1) Acute exacerbation of chronic obstructive pulmonary disease: Plan: Remains stable on her baseline 2L NC and in no respiratory distress but with wheezing, cough, tightness in chest Trop mildly elevated at 14--> repeat today down to 10 This will be her 4th admission since April, she does not have signs of volume overload or other sources to cause her ongoing respiratory issues She knows that she needs to completely stop smoking but is having a very hard time with this S/P 125 mg IV solu-medrol, an hour-long DuoNeb treatment, and 1mg PO ativan in the ED Continue 40 mg IV Solu-medrol TID Due to heart palpitations--> change Duonebs to Xopenex qid and STOP formoterol bid, continue budesonide nebs bid Continue Azithromycin 500mg IV daily x 3 doses Continue BID Guaifenesin,ICS, flutter valve Collect Sputum Culture if possible Continue O2 as needed to keep POx> 88% (2) Opiate dependence: Plan: -Continue Suboxone (3) Constipation: Plan: worse with being on metolazone add Miralax bid, docusate bid, prn bisacodyl MS (4) Diabetes: Plan: Monitor BSG ACHS, goal is 110-160 ---with hyperglycemia with systemic steroids Pharmacy glycemic consult placed -appreciate increased doses of insulin HgbA1C very high at 10.9% (5) Tobacco abuse: Plan: Continue to stress the importance of Cessation (6) History of pulmonary embolism: Plan: Continue home lovenox Denies recently missed doses (7) Heart failure with preserved ejection fraction: Plan: stable continue bumex, metolazone, KCl replacement continue low Na+ diet (8) Hypokalemia: Plan: replace-add on home KCl tabs 60 meq daily follow BMP, magnesium Plan DVT proph-Lovenox Dispo-downgrade off tele, possible dc to home in 1-2 days Admission and Anticipated Discharge Date Admission Date: August 16, 2023 Subjective Still feels tight in her chest, SOB, cough nonproductive. Is having a lot of issues with constipation since going on metolazone but it is working well for her fluid retention. Also feels albuterol gives her heart palpitations and wants Xopenex instead. Tele with NSR rates 90s-100s Physical Exam Constitutional: WD/WN, vitals as above Respiratory: normal respiratory effort; no labored breathing and no cough Auscultation: + wheezes (bilat end exp); no crackles and no rhonchi Cardiovascular: Rate/Rhythm: regular rate and regular rhythm Extremities: + edema (trace edema legs bilat) Psychiatric: A+Ox3, euthymic affect Results & Data Results & Data Vital Signs (Past 12 Hours) Vital Signs Temp Pulse Resp BP Pulse Ox O2 Del Method 08/17/23 10:44 96 H 18 94 Room Air 08/17/23 08:00 Room Air 08/17/23 07:40 36.7 C 103 H 16 124/74 92 Room Air 08/17/23 07:36 109 H 18 90 Room Air 08/17/23 04:13 36.5 C 93 H 16 117/71 93 Room Air Laboratory Results CBC, BMP, HgbA1C reviewed PG Care Time/CCT Total # of Minutes Spent Total Time Spent with Patient: Total time spent is greater than 50% in coordination of care (as documented) at patient's floor/unit and/or counseling patient: Coding Level of Care Code 82958 SUB INP/OBS CARE 2/35MIN Diagnoses Acute exacerbation of chronic obstructive pulmonary disease J44.1 Opiate dependence F11.20 Constipation K59.00 Diabetes E11.9 Tobacco abuse Z72.0 History of pulmonary embolism Z86.711 Heart failure with preserved ejection fraction I50.30 Hypokalemia E87.6
[2023-08-17] MEDS ORDERED: bisacodyL 10 MG SUPP PR PRN (15:36)
[2023-08-17] MEDS: LEVALBUTEROL HCL 0.63 MG/3 ML NEB NEB SCH (16:04)
[2023-08-17] MEDS: AZITHROMYCIN 500 MG in DEXTROSE 5% 250 ML IV SCH (17:07)
[2023-08-17] MEDS: DOCUSATE SODIUM 100 MG CAP PO SCH (19:57)
[2023-08-17] MEDS: POLYETHYLENE (MIRALAX) 17 GM PACK PO SCH (19:57)
[2023-08-18] MEDS: INSULIN ASPART PER UNIT CHARGE SC SCH (00:32)
[2023-08-18 06:29] LABS: Basophils # (auto) 0.03 K/uL (0.00-0.20); Basophils % (auto) 0.2 %; Hematocrit (blood only) 44.1 % (37.0-47.0); Hemoglobin 14.4 g/dl (12.0-16.0); Immature Granulocytes # (auto) 0.14 K/uL (0.01-0.20); Immature Granulocytes % (auto) 0.7 %; Lymphocytes # (auto) 2.36 K/uL (1.20-3.40); Lymphocytes % (auto) 12.4 %; Mean Corpuscular Hemoglobin 25.9 pg (25.0-34.0); Mean Corpuscular Hgb Conc 32.7 g/dL (32.0-36.0); Mean Corpuscular Volume 79.5 fL (80.0-100.0); Mean Platelet Volume 9.8 fL (9.4-12.4); Monocytes # (auto) 0.45 K/uL (0.11-0.59); Monocytes % (auto) 2.4 %; Neutrophils # (auto) 16.04 K/uL (1.40-6.50); Neutrophils % (auto) 84.3 %; Platelet Count 323 K/uL (130-400); RDW Coefficient of Variation 15.7 % (11.5-14.5); RDW Standard Deviation 43.6 fL (36.4-46.3); Red Blood Count 5.55 M/uL (4.20-5.40); White Blood Count 19.02 K/ul (4.8-10.8)
[2023-08-18 06:50] LABS: Albumin Globulin Ratio 1.3 (0.9-2); Albumin Level 3.7 gm/dl (3.4-5.0); Bilirubin,Total 0.4 mg/dl (0.2-1.0); Calcium 9.6 mg/dl (8.6-10.3); Est GFR (African American) 66.7 ml/min; Est GFR (Non-African American) 57.5 ml/min; Globulin 2.8 gm/dl (2.5-4.0); Magnesium 2.4 mg/dl (1.7-2.4); Potassium 3.4 mmol/L (3.5-5.1); Total Protein 6.5 gm/dl (6.0-8.3)
[2023-08-18] MEDS: POTASSIUM CHLORIDE CRTAB 20 MEQ TABCR PO SCH (08:06)
[2023-08-18] MEDS: SOD PHOSPHATE/SOD BIPHOSPHATE ENEMA 132 ML BTL PR STA (09:06)
[2023-08-18] MEDS: INSULIN ASPART PER UNIT CHARGE SC ONE (13:21)
--- NOTE | 2023-08-18 17:05 | Discharge Summary ---
Discharge Summary Date of Service August 18, 2023 Notes For Next Care Provider Needs continued improvement of anxiety which relates to her COPD exacerbations- continued to encourage use of SSRI, longer acting BZD such as ativan rather than xanax Medication Changes From Visit Added prednisone 40mg po daily x 3 days Added one more dose of azithromycin 500mg po Admission HPI Per Admitting Provider Janae Monzon is 63yo female with multiple medical comorbidities to include COPD on supplemental O2 2L NC HS, ongoing tobacco use, HFpEF, DM, prior PE on Loveno x, obesity hypoventilation syndrome, opioid dependence (on Suboxone), DMII, and anxiety who presented to the [facility] ED on 08/16/23 with a chief complaint of progressive SOB, cough, and nausea. Noted to be tachypneic at 27, tachycardic at 106, but otherwise stable. Labs were significant for a leukocytosis of 16 with neutrophil predominance of 12, VBG pH of 7.47. pCO2 of 57, pO2 of 62, initial high sen trop of 14, and covid19/influenza/RSV negative. Chest xray was read as "No acute cardiopulmonary findings. No change in appearance of the chest.". Prior to admission the patient was given an hour long duoneb treatment, 125 mg IV solu-medrol, and 1mg PO Ativan. Patient was sitting in bed in no acute distress at the time of the exam. States she started to notice her respiratory status declining approximally 5 days ago. Started using 10 mg Prednisone tabs she had a home on 08/13 (has been taking 0ne tab daily, last tab was this am). Denies recent fever, chills, chest pain, hemoptysis, abd pain, dysuria, hematuria, melena, LE swelling, and recent trauma. Still smoking 3 cigarettes daily, having a very hard time completely stopping. Does not like the way Nicotine patches make her feel. States she feels like she needs to have a Cigarette in her hand when doing her normal routine as she has been smoking since the age of 15. I recommended she look into FUM, which is a new, FDA compliant, flavored air device which is designed to help with other aspects of cigarette dependence like hand-mouth fixation, anxiety with a fidget mechanism, and flavored air (not smoke or vapor). She states she will look into this. She has had some improvement in her respiratory symptoms after initial treatment in the ED. She is a full code. Please refer to Dr. Linton's attestation for any changes to the treatment plan Principal Dx & Hospital Course #1 = Principal Diagnosis (1) Acute exacerbation of chronic obstructive pulmonary disease: Much improved, no further wheezing or tightness in chest, and cough improving Not needing O2 Trop mildly elevated at 14--> repeat down to 10 This is her 4th admission since April, she does not have signs of volume overload or other sources to cause her ongoing respiratory issues She knows that she needs to completely stop smoking but is having a very hard time with this Anxiety also greatly contributing S/P 125 mg IV solu-medrol, an hour-long DuoNeb treatment, and 1mg PO ativan in the ED Received 40 mg IV Solu-medrol TID and finish out 3 more days of prednisone 40mg daily Continue Xopenex, Trelegy Continue Azithromycin 500mg daily x 3 doses-needs one more dose after discharge Continue BID Guaifenesin,ICS, flutter valve (2) Opiate dependence: -Continue Suboxone -is considering trying to wean off this has chronic pain from previous MM (3) Constipation: worse with being on metolazone added Miralax bid, docusate bid, prn bisacodyl [place], and FLeets enema and improved (4) Diabetes: Monitor BSG ACHS, goal is 110-160 ---with hyperglycemia with systemic steroids Pharmacy glycemic consult placed -appreciate increased doses of insulin HgbA1C very high at 10.9% f/u with PCP (5) Tobacco abuse: Continue to stress the importance of Cessation (6) History of pulmonary embolism: Continue home lovenox Denies recently missed doses (7) Heart failure with preserved ejection fraction: stable continue bumex, metolazone, KCl replacement increased to 40 meq po bid continue low Na+ diet (8) Hypokalemia: increased to 40 meq po bid follow BMP, magnesium as outpt Plan DVT proph-Lovenox Dispo-dc to home Discharge Exam Constitutional WD/WN, vitals as above Respiratory normal respiratory effort; no labored breathing and no cough Auscultation: no crackles, no rhonchi and no wheezes Cardiovascular Rate/Rhythm: regular rate and regular rhythm Extremities: + edema (trace edema legs bilat) Psychiatric A+Ox3, euthymic affect Updated Medication List Medication Instructions Recorded Confirmed Type buprenorphine 8 mg-naloxone 2 mg 1 film sublingual BID 05/14/22 08/16/23 History sublingual film nystatin 100,000 unit/gram topical 1 applic topical BID PRN UNDER 05/14/22 08/16/23 History powder BREASTS NEEDED. ondansetron HCl 4 mg tablet 4 mg PO Q8H PRN NAUSEA/VOMITING 05/14/22 08/16/23 History quetiapine 200 mg tablet 200 mg PO HS 05/14/22 08/16/23 History insulin glargine 100 unit/mL (3 60 unit subcut QAM 06/21/22 08/16/23 History mL) subcutaneous pen ipratropium bromide 0.02 % 3 ml continuous nebulization QID 01/16/23 08/16/23 History solution for inhalation levalbuterol HCl 1.25 mg/3 mL 1.25 mg inhalation TID PRN 01/16/23 08/16/23 History solution for nebulization Shortness Of Breath Or Wheezing bumetanide 2 mg tablet 4 mg PO BID 03/02/23 08/16/23 History enoxaparin 150 mg/mL subcutaneous 150 mg subcut QAM 05/07/23 08/16/23 History syringe fluticasone fur. 200 mcg-umeclid 1 ea inhalation QAM 05/07/23 08/16/23 History 62.5 mcg-vilant 25 mcg inhalat.powder (Trelegy Ellipta) insulin aspart U-100 100 unit/mL 10 unit subcut AC 05/07/23 08/16/23 History (3 mL) subcutaneous pen (Novolog FlexPen U-100 Insulin aspart) levalbuterol tartrate 45 2 puff inhalation Q4 PRN WHEEZE 05/07/23 08/16/23 History mcg/actuation aerosol inhaler metolazone 5 mg tablet 5 mg PO 3XWK 07/28/23 08/16/23 History alprazolam 0.5 mg tablet 0.5 mg PO TID #14 tabs 08/02/23 08/16/23 Rx prednisone 10 mg tablet 0 mg PO DIRECTED PRN flare ups 08/16/23 08/16/23 History azithromycin 500 mg tablet 500 mg PO DAILY #1 tab 08/18/23 Rx docusate sodium 100 mg capsule 100 mg PO BID #60 caps 08/18/23 Rx guaifenesin 600 mg tablet, 600 mg PO Q12 #60 tabs 08/18/23 Rx extended release 12 hr (Mucinex) polyethylene glycol 3350 17 gram 17 g PO BID #60 ea 08/18/23 Rx oral powder packet (Miralax) potassium chloride 20 mEq 40 meq (2 x 20 mEq) PO BID #120 08/18/23 Rx tablet,extended release(part/cryst) tabs prednisone 20 mg tablet 40 mg (2 x 20 mg) PO DAILY 3 days 08/18/23 Rx #6 tabs Hospital Stay Data Consultations 08/16/23 16:02 ED Decision to Admit Stat Pending Results Patient Have Any Pending Studies at Discharge: No Discharge Instructions Given to Patient (Per Discharging Provider) Please take the prednisone once daily for 3 more days, then stop. You will need one more dose of the azithromycin this evening. Your potassium dose was increased and your PCP should check your potassium levels and kidney function on a regular basis. Total Time Total Time Spent Total Time Spent (In Minutes): 35 min Coding Level of Care Code 08713 INP/OBS DISCH >30 MIN Diagnoses Acute exacerbation of chronic obstructive pulmonary disease J44.1 Opiate dependence F11.20 Constipation K59.00 Diabetes E11.9 Tobacco abuse Z72.0 History of pulmonary embolism Z86.711 Heart failure with preserved ejection fraction I50.30 Hypokalemia E87.6
== END 2023-08-18 17:13 | disposition home or self-care (01) | DRG 191 ==
LOC: ED 13:38 → SUATTDRO 16:14 → 2N 16:14

== ENCOUNTER 2023-08-29 23:31 | Inpatient (IN) ==
[2023-08-30] MEDS: methylPREDNISolone 125 MG/2 ML VIAL IV STA (00:12)
[2023-08-30 00:22] LABS: Basophils # (auto) 0.05 K/uL (0.00-0.20); Basophils % (auto) 0.3 %; Eosinophils # (auto) 0.16 K/uL (0.00-0.50); Eosinophils % (auto) 0.9 %; Hematocrit (blood only) 46.9 % (37.0-47.0); Immature Granulocytes # (auto) 0.13 K/uL (0.01-0.20); Immature Granulocytes % (auto) 0.7 %; Lymphocytes # (auto) 3.51 K/uL (1.20-3.40); Lymphocytes % (auto) 18.8 %; Mean Corpuscular Hemoglobin 25.9 pg (25.0-34.0); Mean Corpuscular Volume 80.9 fL (80.0-100.0); Mean Platelet Volume 9.6 fL (9.4-12.4); Monocytes # (auto) 0.63 K/uL (0.11-0.59); Monocytes % (auto) 3.4 %; Neutrophils # (auto) 14.16 K/uL (1.40-6.50); Neutrophils % (auto) 75.9 %; Platelet Count 273 K/uL (130-400); RDW Coefficient of Variation 17.5 % (11.5-14.5); RDW Standard Deviation 47.5 fL (36.4-46.3); White Blood Count 18.64 K/ul (4.8-10.8)
[2023-08-30 00:46] LABS: Base Excess VBG 12.7 mEq/L; HCO3 VBG 38 mmol/L; Oxygen Saturation VBG 94.8 %; PCO2 VBG 50 mmHg (38-50); PO2 VBG 69 mmHg; pH VBG 7.49 (7.36-7.41)
[2023-08-30 00:58] LABS: Albumin Globulin Ratio 1.4 (0.9-2); Albumin Level 3.8 gm/dl (3.4-5.0); BUN Creatinine Ratio 32.3 (10-20); Bilirubin,Total 0.3 mg/dl (0.2-1.0); Calcium 8.9 mg/dl (8.6-10.3); Creatinine Clr Calc Pharmacy 66.1 ml/min; Est GFR (African American) 76.3 ml/min; Est GFR (Non-African American) 65.9 ml/min; Globulin 2.8 gm/dl (2.5-4.0); Magnesium 1.7 mg/dl (1.7-2.4); Total Protein 6.6 gm/dl (6.0-8.3); Troponin I High Sensitivity 21.9 pg/ml (0-14)
[2023-08-30 01:08] LABS: Adenovirus PCR Not Detected (NotDetected); Bordetella parapertussis PCR Not Detected (NotDetected); Bordetella pertussis PCR Not Detected (NotDetected); Chlamydia pneumoniae PCR Not Detected (NotDetected); Coronavirus 229E PCR Not Detected (NotDetected); Coronavirus CoV-2 (COVID19)PCR Not Detected (NotDetected); Coronavirus HKU1 PCR Not Detected (NotDetected); Coronavirus NL63 PCR Not Detected (NotDetected); Coronavirus OC43PCR Not Detected (NotDetected); Human Metapneumovirus PCR Not Detected (NotDetected); Influenza A PCR Not Detected (NotDetected); Influenza B PCR Not Detected (NotDetected); Mycoplasma pneumoniae PCR Not Detected (NotDetected); Parainfluenza Virus 1 PCR Not Detected (NotDetected); Parainfluenza Virus 2 PCR Not Detected (NotDetected); Parainfluenza Virus 3 PCR Not Detected (NotDetected); Parainfluenza Virus 4 PCR Not Detected (NotDetected); Respiratory Syncytial VirusPCR Not Detected (NotDetected); Rhinovirus/Enterovirus PCR DETECTED (NotDetected)
--- NOTE | 2023-08-30 03:16 | History & Physical Report ---
Date of Service August 30, 2023 Assessment & Plan (1) Acute on chronic respiratory failure with hypoxia: (2) Acute exacerbation of chronic obstructive pulmonary disease: (3) History of pulmonary embolism: (4) Obesity hypoventilation syndrome: (5) Opiate dependence: (6) Tobacco abuse: (7) Hypokalemia: Plan Acute on chronic respiratory failure with hypoxia/COPD exacerbation/obesity hypoventilation syndrome/ongoing tobacco abuse/history of PE- Status post Solu-Medrol 125 mg IV in the ED Solu-Medrol 20 mg IV every 8 hours Add Pulmicort Respules 0.5 mg inhaled twice daily Duonebs every 4 hours while awake and every 2 hours when necessary. Azithromycin 500 mg IV daily Guaifenesin extended release 1200 mg p.o. twice daily Bio fire positive for enterovirus/rhinovirus Tobacco cessation counseling Continue Garcia Vazquez Diabetes mellitus- Glucose 314 on admission She did receive Solu-Medrol 125 mg IV from the ED Placed on low-dose Solu-Medrol 20 mg IV every 8 hours, and add Pulmicort Respules 0.5 mg inhaled twice daily to minimize glucose gel Continue glargine 60 units subcu every morning Placed on Accu-Cheks with NovoLog SSI Check hemoglobin A1c HFpEF- Overall looks dry Hold Bumex, metolazone Hypokalemia/hypomagnesemia- Potassium 3.0 and magnesium 1.7 on admission Give 2 potassium 10 mill equivalent riders, and mag sulfate 1 g IV Recheck laboratories in a.m. Opiate dependence- Continue Suboxone Constipation- Holding diuretics for now, give 1 L fluid, continue MiraLAX History of PE- Continue Lovenox therapeutic dosing History of Present Illness Chief Complaint: The patient reports to the emergency department with worsening shortness of breath over the past several days Primary Care Provider: Radha Barboza The patient is a 63-year-old female with a past medical history including severe COPD, chronic tobacco use, opiate dependence, HFpEF, obesity hypoventilation syndrome, diabetes mellitus, chronic anticoagulation, and hypokalemia. She presents to the emergency department with symptoms similar to her previous 5 admissions this year: 05/07-05/09/2023, 05/31-06/04/2023, 06/29-07/03/2023, 07/27-, and 08/15-08/18/2023. She continues to smoke, and continues to be physically and active. She does report taking her inhalers and other medications as directed. BioFire testing in the ED is positive for enterovirus/rhinovirus. Allergies Allergy/AdvReac Type Severity Reaction Status Date / Time codeine Allergy Severe Anaphylaxis Verified 08/16/23 17:34 Iodinated Contrast Media Allergy Severe Anaphylaxis Verified 08/16/23 17:34 shellfish derived Allergy Severe Anaphylaxis Verified 08/16/23 17:34 tramadol Allergy Intermediate ITCHINESS Verified 08/16/23 17:34 iohexol Allergy Unknown CAN'T Verified 08/16/23 17:34 REMEMBER diphenhydramine AdvReac Severe Anxiety Verified 08/16/23 17:34 [From Benadryl] montelukast [From Singulair] AdvReac Intermediate Anxiety Verified 08/16/23 17:34 promethazine AdvReac Intermediate Anxiety Verified 08/16/23 17:34 Home Medications Medication Instructions Recorded Confirmed Type buprenorphine 8 mg-naloxone 2 mg 1 film sublingual BID 05/14/22 08/30/23 History sublingual film nystatin 100,000 unit/gram topical 1 applic topical BID PRN UNDER 05/14/22 08/30/23 History powder BREASTS NEEDED. ondansetron HCl 4 mg tablet 4 mg PO Q8H PRN NAUSEA/VOMITING 05/14/22 08/30/23 History quetiapine 200 mg tablet 200 mg PO HS 05/14/22 08/16/23 History insulin glargine 100 unit/mL (3 60 unit subcut QAM 06/21/22 08/30/23 History mL) subcutaneous pen ipratropium bromide 0.02 % 3 ml continuous nebulization QID 01/16/23 08/16/23 History solution for inhalation levalbuterol HCl 1.25 mg/3 mL 1.25 mg inhalation TID PRN 01/16/23 08/16/23 History solution for nebulization Shortness Of Breath Or Wheezing bumetanide 2 mg tablet 4 mg PO BID 03/02/23 08/30/23 History enoxaparin 150 mg/mL subcutaneous 150 mg subcut QAM 05/07/23 08/16/23 History syringe fluticasone fur. 200 mcg-umeclid 1 ea inhalation QAM 05/07/23 08/16/23 History 62.5 mcg-vilant 25 mcg inhalat.powder (Trelegy Ellipta) insulin aspart U-100 100 unit/mL 10 unit subcut AC 05/07/23 08/16/23 History (3 mL) subcutaneous pen (Novolog FlexPen U-100 Insulin aspart) levalbuterol tartrate 45 2 puff inhalation Q4 PRN WHEEZE 05/07/23 08/16/23 History mcg/actuation aerosol inhaler metolazone 5 mg tablet 5 mg PO 3XWK 07/28/23 08/30/23 History alprazolam 0.5 mg tablet 0.5 mg PO TID #14 tabs 08/02/23 08/16/23 Rx prednisone 10 mg tablet 0 mg PO DIRECTED PRN flare ups 08/16/23 08/30/23 History docusate sodium 100 mg capsule 100 mg PO BID #60 caps 08/18/23 08/30/23 Rx guaifenesin 600 mg tablet, 600 mg PO Q12 #60 tabs 08/18/23 Rx extended release 12 hr (Mucinex) polyethylene glycol 3350 17 gram 17 g PO BID #60 ea 08/18/23 08/30/23 Rx oral powder packet (Miralax) potassium chloride 20 mEq 40 meq (2 x 20 mEq) PO BID #120 08/18/23 Rx tablet,extended release(part/cryst) tabs albuterol sulfate 90 mcg/actuation 2 puff inhalation UD PRN Shortness 08/30/23 08/30/23 History aerosol inhaler Of Breath Or Wheezing fluticasone fur. 200 mcg-umeclid 1 inh inhalation DAILY 08/30/23 08/30/23 History 62.5 mcg-vilant 25 mcg inhalat.powder (Trelegy Ellipta) Past Med/Surg History Medical History (Updated 08/17/23 @ 15:45 by Petra Chan MD) History of pulmonary embolism Chronic anticoagulation Obesity hypoventilation syndrome Tobacco abuse Opiate dependence Diabetes Acute heart failure with preserved ejection fraction (HFpEF) Asthma COPD (chronic obstructive pulmonary disease) Multiple myeloma Surgical History No pertinent past surgical history Social History Smoking Status: Never smoker Tobacco Type: Cigarettes Cigarettes Per Day: 1/2 pack per day; Second Hand Exposure: Yes; Do You Dip or Chew Tobacco: No; Hx Alcohol Use: No Hx Substance Use: No Preferred Language: Cypriot Communication Ability: Effective Mobile Application Development Lead Required: No Beliefs That Will Affect Care: None Current Living Situation: Family Current Living Situation Comment: lives with sister temporarily Feels Safe at Home: Yes Assistive Devices: Oxygen - at Night Review of Systems Review of Systems: The patient denies chest pain, palpitations, lower extremity swelling, sore throat, fevers, chills, sweats, nausea, vomiting, diarrhea , constipation, abdominal pain, pelvic pain, blood in urine or stool, dysuria, urinary frequency or urgency, lightheadedness, dizziness, headache, memory loss, loss of consciousness, rash, abnormal bruising or bleeding, imbalance, focal weakness, numbness or tingling in arms or legs, generalized arthralgias or myalgias, back or neck pain, or night sweats. The review of systems is otherwise negative other than for that already noted above, and at least 10 systems have been reviewed. Physical Exam Physical Exam: The patient is awake, alert and oriented 3, well developed and well nourished, normocephalic and atraumatic, lying in bed and in mild respiratory distress. HEENT--PERRL, EOMI, mucous membranes and oropharynx dry. Neck--supple. No JVD. No bruits. Thyroid normal, trachea midline, no adenopathy. Heart--normal S1 and S2. No murmurs, rubs or gallops. Lungs--decreased breath sounds throughout. Mild respiratory distress, no accessory muscle use. Abdomen--normal bowel sounds and soft. Nontender. Nondistended. Obese Extremities--No edema. Dermatologic--normal skin turgor, normal color, no abnormal lymph nodes, no rash. Neurologic--cranial nerves II through XII grossly intact. Rheumatologic--normal range of motion. Psychiatric--normal affect. Results & Data Results & Data Vital Signs (Past 12 Hours) Vital Signs Temp Pulse Resp BP Pulse Ox O2 Del Method O2 Flow Rate 08/29/23 23:58 91 Nasal Cannula 2 08/29/23 23:42 106 H 08/29/23 23:34 35.6 C L 113 H 24 110/73 91 Room Air 08/29/23 23:31 Nasal Cannula Laboratory Results Laboratory Results WBC 18.64 K/ul (4.8-10.8) H 08/29/23 23:50 RBC 5.80 M/uL (4.20-5.40) H 08/29/23 23:50 Hgb 15.0 g/dl (12.0-16.0) 08/29/23 23:50 Hct 46.9 % (37.0-47.0) 08/29/23 23:50 MCV 80.9 fL (80.0-100.0) 08/29/23 23:50 MCH 25.9 pg (25.0-34.0) 08/29/23 23:50 MCHC 32.0 g/dL (32.0-36.0) 08/29/23 23:50 RDW Std Deviation 47.5 fL (36.4-46.3) H 08/29/23 23:50 RDW Coeff of Malick 17.5 % (11.5-14.5) H 08/29/23 23:50 Plt Count 273 K/uL (130-400) 08/29/23 23:50 MPV 9.6 fL (9.4-12.4) 08/29/23 23:50 Immature Gran % (Auto) 0.7 % 08/29/23 23:50 Neut % (Auto) 75.9 % 08/29/23 23:50 Lymph % (Auto) 18.8 % 08/29/23 23:50 Lynn % (Auto) 3.4 % 08/29/23 23:50 Eos % (Auto) 0.9 % 08/29/23 23:50 Baso % (Auto) 0.3 % 08/29/23 23:50 Neut # (Auto) 14.16 K/uL (1.40-6.50) H 08/29/23 23:50 Lymph # (Auto) 3.51 K/uL (1.20-3.40) H 08/29/23 23:50 Lynn # (Auto) 0.63 K/uL (0.11-0.59) H 08/29/23 23:50 Eos # (Auto) 0.16 K/uL (0.00-0.50) 08/29/23 23:50 Baso # (Auto) 0.05 K/uL (0.00-0.20) 08/29/23 23:50 Immature Gran # (Auto) 0.13 K/uL (0.01-0.20) 08/29/23 23:50 VBG pH 7.49 (7.36-7.41) H 08/30/23 00:35 VBG pCO2 50 mmHg (38-50) 08/30/23 00:35 VBG pO2 69 mmHg 08/30/23 00:35 VBG HCO3 38 mmol/L 08/30/23 00:35 VBG O2 Saturation 94.8 % 08/30/23 00:35 VBG Base Excess 12.7 mEq/L 08/30/23 00:35 Carboxyhemoglobin 7.8 % THgb 08/30/23 00:35 Sodium 136 mmol/L (136-145) 08/29/23 23:50 Potassium 3.0 mmol/L (3.5-5.1) L 08/29/23 23:50 Chloride 90 mmol/L (98-107) L 08/29/23 23:50 Carbon Dioxide 35 mmol/L (21-32) H 08/29/23 23:50 Anion Gap 11 (3-11) 08/29/23 23:50 BUN 30 mg/dl (6-23) H 08/29/23 23:50 Creatinine 0.93 mg/dl (0.6-1.2) 08/29/23 23:50 Est Cr Clr Drug Dosing 66.1 ml/min 08/29/23 23:50 Est GFR ( Amer) 76.3 ml/min 08/29/23 23:50 Est GFR (Non-Af Amer) 65.9 ml/min 08/29/23 23:50 BUN/Creatinine Ratio 32.3 (10-20) H 08/29/23 23:50 Glucose 314 mg/dl (70-99(Fasting)) H* 08/29/23 23:50 Calcium 8.9 mg/dl (8.6-10.3) 08/29/23 23:50 Magnesium 1.7 mg/dl (1.7-2.4) 08/29/23 23:50 Total Bilirubin 0.3 mg/dl (0.2-1.0) 08/29/23 23:50 AST 9 U/L (13-39) L 08/29/23 23:50 ALT 12 U/L (7-52) 08/29/23 23:50 Alkaline Phosphatase 101 U/L (34-104) 08/29/23 23:50 Troponin I High Sens 20.0 pg/ml (0-14) H 08/30/23 01:55 B-Natriuretic Peptide 95 pg/ml (0-100) 08/30/23 00:35 Total Protein 6.6 gm/dl (6.0-8.3) 08/29/23 23:50 Albumin 3.8 gm/dl (3.4-5.0) 08/29/23 23:50 Globulin 2.8 gm/dl (2.5-4.0) 08/29/23 23:50 Albumin/Globulin Ratio 1.4 (0.9-2) 08/29/23 23:50 Adenovirus (PCR) Not Detected (NotDetected) 08/29/23 23:45 B. pertussis DNA (PCR) Not Detected (NotDetected) 08/29/23 23:45 B.parapertussis DNA PCR Not Detected (NotDetected) 08/29/23 23:45 C. pneumoniae DNA (PCR) Not Detected (NotDetected) 08/29/23 23:45 Coronavirus OC43 (PCR) Not Detected (NotDetected) 08/29/23 23:45 Coronavirus HKU1 (PCR) Not Detected (NotDetected) 08/29/23 23:45 Coronavirus 229E (PCR) Not Detected (NotDetected) 08/29/23 23:45 SARS-CoV-2 (PCR) Not Detected (NotDetected) 08/29/23 23:45 Coronavirus NL63 (PCR) Not Detected (NotDetected) 08/29/23 23:45 Human Metapneumovir PCR Not Detected (NotDetected) 08/29/23 23:45 Influenza Type A (PCR) Not Detected (NotDetected) 08/29/23 23:45 Influenza Type B (PCR) Not Detected (NotDetected) 08/29/23 23:45 M. pneumoniae (PCR) Not Detected (NotDetected) 08/29/23 23:45 Parainfluenza 1 (PCR) Not Detected (NotDetected) 08/29/23 23:45 Parainfluenza 2 (PCR) Not Detected (NotDetected) 08/29/23 23:45 Parainfluenza 3 (PCR) Not Detected (NotDetected) 08/29/23 23:45 Parainfluenza 4 (PCR) Not Detected (NotDetected) 08/29/23 23:45 RSV (PCR) Not Detected (NotDetected) 08/29/23 23:45 Entero/Rhino (PCR) DETECTED (NotDetected) A 08/29/23 23:45 Code Status & VTE Plan Code Status Full code VTE Prophylaxis Plan VTE Prophylaxis will be ordered: Yes PG Care Time/CCT Total # of Minutes Spent Total Time Spent with Patient: Total time spent is greater than 50% in coordination of care (as documented) at patient's floor/unit and/or counseling patient: Coding Level of Care Code 93377 INT INP/OBS CARE 3/75MIN Diagnoses Acute on chronic respiratory failure with hypoxia J96.21 Acute exacerbation of chronic obstructive pulmonary disease J44.1 History of pulmonary embolism Z86.711 Obesity hypoventilation syndrome E66.2 Opiate dependence F11.20 Tobacco abuse Z72.0 Hypokalemia E87.6
[2023-08-30] MEDS: MAGNESIUM SULFATE / D5W 1 GM/100 ML BAG IV ONE (04:09)
[2023-08-30] MEDS: POTASSIUM CHLORIDE / WTR 10 MEQ/100 ML PLCT IV SCH (04:09)
[2023-08-30] MEDS ORDERED: ACETAMINOPHEN 325 MG TAB PO PRN (05:18)
[2023-08-30] MEDS ORDERED: CARBOHYDRATES FOR HYPOGLYCEMIA PO PRN (05:18)
[2023-08-30] MEDS ORDERED: ONDANSETRON INJ 2 MG/ML 2 ML VIAL IV PRN (05:18)
[2023-08-30] MEDS ORDERED: GLUCOSE 10 TAB/TUBE PO PRN (05:18)
[2023-08-30] MEDS ORDERED: GLUCAGON FOR INJ 1 MG VIAL SQ PRN (05:18)
[2023-08-30] MEDS ORDERED: ONDANSETRON 4 MG OD TAB PO PRN (05:18)
[2023-08-30] MEDS ORDERED: methylPREDNISolone 10 mg/mL (For Ped Dose < 7mg) IV SCH (05:18)
[2023-08-30] MEDS ORDERED: DEXTROSE 50% 50 ML SYRINGE IV PRN (05:18)
[2023-08-30] MEDS ORDERED: GLUCOSE 40% GEL 15 GM TUBE PO PRN (05:18)
[2023-08-30] MEDS: ALPRAZolam 0.5 MG TABLET PO PRN (05:46)
[2023-08-30] MEDS: ALBUT/IPRATROP 3MG/0.5MG NEB 3 ML VIAL NEB ONE (05:54)
[2023-08-30] MEDS ORDERED: methylPREDNISolone 20 MG in SYRINGE 0 ML IV SCH (06:30)
[2023-08-30] MEDS: BUDESONIDE 0.5 MG/2 ML VIAL (PULMICORT) NEB SCH (07:20)
[2023-08-30] MEDS: ALBUT/IPRATROP 3MG/0.5MG NEB 3 ML VIAL NEB SCH (07:20)
[2023-08-30] MEDS: AZITHROMYCIN 500 MG in DEXTROSE 5% 250 ML IV SCH (07:47)
--- NOTE | 2023-08-30 07:51 | XRay Report ---
XR chest 1V portable HISTORY: Dyspnea COMPARISON: Chest 08/16/2023. FINDINGS: The lungs are clear. Cardiac silhouette is normal in size. No pleural effusions. No pneumot horax. Stable deformity within the right anterior fourth rib again noted. IMPRESSION: No significant change compared to the prior study. No acute process. ACT 112: Negative or not required by law. Electronically signed by: Chester Salas M.D. 08/30/2023 7:50 AM
[2023-08-30] MEDS ORDERED: NON-FORMULARY MEDICATION (Fluticasone-Umeclidin-Vilanter [Trelegy Ellipta] 200-62.5-25 mcg INH SCH ×2 (09:00)
[2023-08-30 09:04] LABS: Appearance Urine Clear (Clear); Bilirubin Urine Negative (Negative); Blood Urine Negative (Negative); Color Urine Yellow; Glucose Urine UA 3+ (Negative); Ketones Urine Negative (Negative); Leukocyte Esterase Urine Negative (Negative); Nitrite Urine Negative (Negative); Protein Urine Negative (Negative); Specific Gravity Urine 1.017 (1.000-1.030); Urobilinogen Urine Negative (Negative)
[2023-08-30] MEDS: methylPREDNISolone 20 MG in SYRINGE 0 ML IV SCH (09:11)
[2023-08-30] MEDS: INSULIN ASPART PER UNIT CHARGE SC SCH (09:11)
[2023-08-30] MEDS: BUMETANIDE 1 MG TAB PO SCH (09:11)
[2023-08-30] MEDS: BUPRENORPHINE/NALOXONE 8/2 MG TAB SL SCH (09:12)
[2023-08-30] MEDS: LANTUS PER UNIT CHARGE SQ SCH (09:12)
[2023-08-30] MEDS: guaiFENesin 600 MG TABCR PO SCH (09:12)
[2023-08-30] MEDS: POTASSIUM CHLORIDE CRTAB 20 MEQ TABCR PO SCH ×2 (09:12→20:30)
[2023-08-30] MEDS: DOCUSATE SODIUM 100 MG CAP PO SCH (09:13)
[2023-08-30] MEDS: ENOXAPARIN 150 MG/ML SYR SQ SCH (09:13)
[2023-08-30] MEDS: POLYETHYLENE (MIRALAX) 17 GM PACK PO SCH (09:13)
--- NOTE | 2023-08-30 12:49 | Hospitalist Progress Note ---
Date of Service August 30, 2023 Assessment & Plan (1) Moderate persistent asthma: (2) History of pulmonary embolism: (3) Opiate dependence: (4) Obesity hypoventilation syndrome: (5) Diabetes: (6) Chronic anticoagulation: (7) Tobacco abuse: Plan #Acute on chronic respiratory failure with hypoxia/COPD exacerbation/obesity hypoventilation syndrome/ongoing tobacco abuse/history of PE Solu-Medrol 20 mg IV every 8 hours Add Pulmicort Respules 0.5 mg inhaled twice daily Xopenex nebs Azithromycin 500 mg IV daily Guaifenesin extended release 1200 mg p.o. twice daily Bio fire positive for enterovirus/rhinovirus Tobacco cessation counseling Continue Trelegy Ellipta #Diabetes mellitus Glucose 314 on admission, continues to be markedly elevated in setting of steroid use Placed on low-dose Solu-Medrol 20 mg IV every 8 hours, and add Pulmicort Respules 0.5 mg inhaled twice daily to minimize glucose gel Continue glargine 60 units subq every morning Placed on Accu-Cheks with NovoLog SSI Carb ratio/correction factor tightened A1c 08/17/23 10.6; f/u recheck #HFpEF Overall looks dry Hold Bumex, metolazone #Hypokalemia/hypomagnesemia Potassium 3.0 and magnesium 1.7 on admission replete as indicated #Opiate dependence Continue Suboxone #Constipation Bowel regimen Encourage hydration #History of PE Continue Lovenox therapeutic dosing Admission and Anticipated Discharge Date Admission Date: August 30, 2023 Supervising Physician Co-Signing Physician Notes Attending Physician Supervision Note: I independently interviewed and examined the patient and verified the rosario history and physical, reviewed labs and image studies and agree with findings and care plan noted above. Acute moderate persistent asthma exacerbation - -PFT results reviewed. No obstruction noted. Previous Pul note reviewed. -Exacerbation likely from viral illness/also in high pollen count season. Has air-conditioning only in one room of her home. -continue IV steroids. -consider d/c azithromycin in am. HFpEF -On bumex/metolazone - held. Resume in am. Hx of PE - unclear why on therapeutic dose of lovenox instead of prophylactic dose. -Will need to gather history of coagulability work up. Noted h/o Multiple Myeloma in chart as well - will need to confirm that. DM - monitor glucose level while on steroids Recurrent admissions for similar presentation - her respiratory symptoms got worse since moving to [place]. Is going to move back to [place] in September. Subjective Patient seen and evaluated at bedside this morning. No acute events overnight. Severely SOB. On oxygen therapy. BSG very high since admission, worse with addition of steroids. Review of Systems Review of Systems: reviewed, per HPI Physical Exam Physical Exam: Constitutional: ill-appearing, moderate distress HEENT: NCAT, no conjunctival injection CV: regular rhythm, no murmur appreciated, extremities well-perfused, no LE edema Resp: b/l primarily expiratory wheeze, increased work of breathing MSK: no gross deformities appreciated Skin: warm, dry, no rash appreciated Neuro: alert, oriented, no focal neurologic deficit appreciated Results & Data Results & Data Vital Signs (Past 12 Hours) Vital Signs Temp Pulse Pulse Resp BP BP Pulse Ox 08/30/23 11:20 81 20 94 08/30/23 10:43 08/30/23 10:43 19 131/71 93 08/30/23 07:55 36.7 C 97 H 17 131/71 93 08/30/23 07:22 71 18 95 08/30/23 07:19 93 H 08/30/23 06:03 08/30/23 05:55 88 19 93 08/30/23 05:18 08/30/23 04:30 105/87 08/30/23 04:30 86 14 92 08/30/23 04:20 85 14 92 08/30/23 04:10 86 15 91 08/30/23 03:50 86 14 94 08/30/23 03:40 86 14 94 08/30/23 03:30 121/81 08/30/23 03:30 85 14 94 08/30/23 03:20 86 13 93 08/30/23 03:10 87 13 94 08/30/23 03:00 134/79 08/30/23 03:00 86 14 94 08/30/23 02:50 87 15 92 08/30/23 02:40 88 14 95 08/30/23 02:30 118/71 08/30/23 02:30 90 17 92 08/30/23 02:20 90 16 92 08/30/23 02:10 89 19 92 08/30/23 02:00 128/90 08/30/23 02:00 91 H 17 08/30/23 01:50 90 16 08/30/23 01:41 91 H 16 90 08/30/23 01:32 91 H 16 92 08/30/23 01:30 107/67 08/30/23 01:26 90 15 90 08/30/23 01:20 90 19 92 08/30/23 01:10 94 H 16 91 08/30/23 01:00 94 H 16 91 08/30/23 00:50 94 H 16 91 Pulse Ox O2 Del Method O2 Del Method O2 Flow Rate 08/30/23 11:20 Room Air 08/30/23 10:43 Nasal Cannula 4 08/30/23 10:43 Nasal Cannula 4 08/30/23 07:55 Nasal Cannula 3 08/30/23 07:22 Aerosol Mask 7 08/30/23 07:19 08/30/23 06:03 Nasal Cannula 08/30/23 05:55 Nasal Cannula 4 08/30/23 05:18 96 Nasal Cannula 08/30/23 04:30 08/30/23 04:30 08/30/23 04:20 08/30/23 04:10 08/30/23 03:50 08/30/23 03:40 08/30/23 03:30 08/30/23 03:30 08/30/23 03:20 08/30/23 03:10 08/30/23 03:00 08/30/23 03:00 08/30/23 02:50 08/30/23 02:40 08/30/23 02:30 08/30/23 02:30 08/30/23 02:20 08/30/23 02:10 08/30/23 02:00 08/30/23 02:00 08/30/23 01:50 08/30/23 01:41 08/30/23 01:32 08/30/23 01:30 08/30/23 01:26 08/30/23 01:20 08/30/23 01:10 08/30/23 01:00 08/30/23 00:50 Resident Activity Tracking Resident Involvement: Resident Care Provided Care Provided: Adult [facility]
[2023-08-30] MEDS: POTASSIUM CHLORIDE CRTAB 20 MEQ TABCR PO STA (13:05)
[2023-08-30] MEDS: FLUTICASONE FUROATE 200MCG 14 PUFFS/INHALER INH SCH (13:06)
[2023-08-30] MEDS: UMECLIDINIUM/VILANTEROL 62.5/25MCG 7 PUFFS/INHALER INH SCH (13:06)
[2023-08-30] MEDS: LEVALBUTEROL HCL 0.63 MG/3 ML NEB NEB SCH (15:40)
[2023-08-30] MEDS ORDERED: PHARMACY GLYCEMIC MGMT CONSULT PRN (17:38)
--- NOTE | 2023-08-30 18:19 | Pharmacy Report ---
Pharmacy Glycemic Short Note 2 - Date of Service August 30, 2023 - Glycemic Short BSG Results (Last 24 hours): 08/29/23 08/30/23 08/30/23 23:50 07:50 07:51 Glucose 314 H* POC Glucose 390 H* 397 H* 08/30/23 08/30/23 08/30/23 12:03 16:37 16:38 Glucose POC Glucose 435 H* 366 H* 341 H* Laboratory Tests 08/17/23 05:35 Hemoglobin A1c 10.6 H OUTPATIENT ANTIDIABETIC REGIMEN: * Lantus 60 units sq qAM * Novolog 10 units AC + SSI * ~90+ units of insulin per day (reflecting A1c 10.6% 08/17/23) ASSESSMENT: * Ordered Solu-Medrol 125mg IV x1, then 20mg IV q8h * Azithrmycin IV PLAN FOR INPATIENT GLYCEMIC CONTROL: * Hold outpatient oral diabetes medications * Basal insulin * Lantus 60 units SQ qAM * Bolus insulin * NovoLog per scale ACHS or Q6hrs while NPO + 0200 * Goal Range: Low 120 mg/dL - High 160 mg/dL * Correction Factor: 15 mg/dL/unit * Nutritional / Prandial insulin per carb ratio of 1 unit per 5 grams CHO co nsumed. * Insulin needs estimated based on ~120 total units of insulin/day as Lantus 30 units BID + Novolog CF=15, CR=4. Also added a BSG check @ 0200 w/ coverage. We will continue to monitor closely and make adjustments prn.
[2023-08-30] MEDS: ALPRAZolam 0.5 MG TABLET PO SCH (20:30)
[2023-08-30] MEDS: QUEtiapine FUMARATE 200 MG TAB PO SCH (20:30)
[2023-08-30] MEDS: GLYCERIN ADULT 12 SUPP/BOX SUPP PR ONE (21:26)
--- NOTE | 2023-08-30 22:52 | Electrocardiogram Report ---
Test Reason : Blood Pressure : / mmHG Vent. Rate : 105 BPM Atrial Rate : 105 BPM P-R Int : 152 ms QRS Dur : 082 ms QT Int : 338 ms P-R-T Axes : 041 013 052 degrees QTc Int : 446 ms Sinus tachycardia Possible Inferior infarct (cited on or before 16-AUG-2023) Possible Anterior infarct (cited on or before 28-JUL-2023) Abnormal ECG When compared with ECG of 16-AUG-2023 14:00, Questionable change in initial forces of Anterior leads ST now depressed in Lateral leads Confirmed by Juan Hardin ([id number]) on 08/30/2023 10:52:17 PM Referred By: REFERRED SELF Confirmed By:Juan Hardin
--- NOTE | 2023-08-30 23:04 | Emergency Department Note ---
History of Present Illness General Chief complaint: Respiratory Problems Stated complaint: SOB,COPD Time Seen by Provider: 08/29/23 23:49 History of Present Illness Maximum Pain Intensity: 3 This is a 63-year-old female presenting to the emergency department via EMS for evaluation of shortness of breath. Patient has extensively documented history of COPD. She is on home oxygen at 2 L. Patient states that she was outside today and neighbors were doing yard work and this may have exacerbated her symptoms. She feels like she is not able to breathe tonight and contacted EMS for evaluation. EMS brought the patient to the ER as her oxygen was decreased at home. She rates her discomfort a 3/10. Home Medications Medication Instructions Recorded Confirmed Type buprenorphine 8 mg-naloxone 2 mg 1 film sublingual BID 05/14/22 08/30/23 History sublingual film nystatin 100,000 unit/gram topical 1 applic topical BID PRN UNDER 05/14/22 08/30/23 History powder BREASTS NEEDED. ondansetron HCl 4 mg tablet 4 mg PO Q8H PRN NAUSEA/VOMITING 05/14/22 08/30/23 History quetiapine 200 mg tablet 200 mg PO HS 05/14/22 08/30/23 History insulin glargine 100 unit/mL (3 60 unit subcut QAM 06/21/22 08/30/23 History mL) subcutaneous pen ipratropium bromide 0.02 % 3 ml continuous nebulization QID 01/16/23 08/30/23 History solution for inhalation levalbuterol HCl 1.25 mg/3 mL 1.25 mg inhalation TID PRN 01/16/23 08/30/23 History solution for nebulization Shortness Of Breath Or Wheezing bumetanide 2 mg tablet 4 mg PO BID 03/02/23 08/30/23 History enoxaparin 150 mg/mL subcutaneous 150 mg subcut QAM 05/07/23 08/30/23 History syringe fluticasone fur. 200 mcg-umeclid 1 ea inhalation QAM 05/07/23 08/30/23 History 62.5 mcg-vilant 25 mcg inhalat.powder (Trelegy Ellipta) insulin aspart U-100 100 unit/mL 10 unit subcut AC 05/07/23 08/30/23 History (3 mL) subcutaneous pen (Novolog FlexPen U-100 Insulin aspart) levalbuterol tartrate 45 2 puff inhalation Q4 PRN WHEEZE 05/07/23 08/30/23 History mcg/actuation aerosol inhaler metolazone 5 mg tablet 5 mg PO 3XWK 07/28/23 08/30/23 History alprazolam 0.5 mg tablet 0.5 mg PO TID #14 tabs 08/02/23 08/30/23 Rx prednisone 10 mg tablet 0 mg PO DIRECTED PRN flare ups 08/16/23 08/30/23 History docusate sodium 100 mg capsule 100 mg PO BID #60 caps 08/18/23 08/30/23 Rx guaifenesin 600 mg tablet, 600 mg PO Q12 #60 tabs 08/18/23 08/30/23 Rx extended release 12 hr (Mucinex) polyethylene glycol 3350 17 gram 17 g PO BID #60 ea 08/18/23 08/30/23 Rx oral powder packet (Miralax) potassium chloride 20 mEq 40 meq (2 x 20 mEq) PO BID #120 08/18/23 08/30/23 Rx tablet,extended release(part/cryst) tabs albuterol sulfate 90 mcg/actuation 2 puff inhalation UD PRN Shortness 08/30/23 08/30/23 History aerosol inhaler Of Breath Or Wheezing fluticasone fur. 200 mcg-umeclid 1 inh inhalation DAILY 08/30/23 08/30/23 History 62.5 mcg-vilant 25 mcg inhalat.powder (Trelegy Ellipta) Allergies Allergy/AdvReac Type Severity Reaction Status Date / Time codeine Allergy Severe Anaphylaxis Verified 08/16/23 17:34 Iodinated Contrast Media Allergy Severe Anaphylaxis Verified 08/16/23 17:34 shellfish derived Allergy Severe Anaphylaxis Verified 08/16/23 17:34 tramadol Allergy Intermediate ITCHINESS Verified 08/16/23 17:34 iohexol Allergy Unknown CAN'T Verified 08/16/23 17:34 REMEMBER diphenhydramine AdvReac Severe Anxiety Verified 08/16/23 17:34 [From Benadryl] montelukast [From Singulair] AdvReac Intermediate Anxiety Verified 08/16/23 17:34 promethazine AdvReac Intermediate Anxiety Verified 08/16/23 17:34 Past Med/Surg History Medical History Moderate persistent asthma History of pulmonary embolism Chronic anticoagulation Obesity hypoventilation syndrome Tobacco abuse Opiate dependence Diabetes Acute heart failure with preserved ejection fraction (HFpEF) Asthma COPD (chronic obstructive pulmonary disease) Multiple myeloma Surgical History No pertinent past surgical history Social History Smoking Status: Current every day smoker Tobacco Type: Cigarettes Cigarettes Per Day: 1/2 pack per day; Second Hand Exposure: Yes; Do You Dip or Chew Tobacco: No; Tobacco Cessation Education Requested by Patient: No Hx Alcohol Use: No Hx Substance Use: Yes Last Used Substance: Unknown Preferred Language: Indian Communication Ability: Effective Food Safety Manager Required: No Beliefs That Will Affect Care: None Current Living Situation: Family Current Living Situation Comment: lives with sister temporarily Other Information That Helps Us Care for You: No Feels Safe at Home: Yes Safety Concerns: Feels Safe At This Time Assistive Devices: Oxygen - at Night and Oxygen - Continuous Review of Systems A total of 10 systems reviewed and were otherwise negative Physical Exam Vital Signs Vital Signs - 24 hr 08/29/23 23:31 08/29/23 23:34 08/29/23 23:42 Temperature 35.6 C L Temperature Source Temporal Artery Scan Pulse Rate 113 H 106 H Pulse Rate from SpO2 Sensor Respiratory Rate 24 Respiratory Effort / Characteristics Non-Labored Spontaneous Respiratory Depth Normal Blood Pressure 110/73 Blood Pressure Mean 85 Blood Pressure Position Sitting Pulse Oximetry 91 Oxygen Delivery Method Nasal Cannula Room Air Oxygen Flow Rate Sepsis Recent Fever Within 48 Hours No Sepsis New/Unexplained Change in Mental Status N/A Sepsis Action Taken by Nursing No Action Required 08/29/23 23:42 08/29/23 23:50 08/29/23 23:58 Temperature Temperature Source Pulse Rate 106 H 104 H Pulse Rate from SpO2 Sensor 106 H 104 H Respiratory Rate 14 21 Respiratory Effort / Characteristics Respiratory Depth Blood Pressure Blood Pressure Mean Blood Pressure Position Pulse Oximetry 95 95 91 Oxygen Delivery Method Nasal Cannula Nasal Cannula Oxygen Flow Rate 4 2 Sepsis Recent Fever Within 48 Hours Sepsis New/Unexplained Change in Mental Status Sepsis Action Taken by Nursing 08/30/23 00:00 08/30/23 00:08 08/30/23 00:10 Temperature Temperature Source Pulse Rate 105 H 99 H Pulse Rate from SpO2 Sensor 105 H 99 H Respiratory Rate 23 19 Respiratory Effort / Characteristics Non-Labored Respiratory Depth Normal Blood Pressure Blood Pressure Mean Blood Pressure Position Pulse Oximetry 93 90 Oxygen Delivery Method Oxygen Flow Rate Sepsis Recent Fever Within 48 Hours Sepsis New/Unexplained Change in Mental Status Sepsis Action Taken by Nursing 08/30/23 00:21 08/30/23 00:30 08/30/23 00:41 Temperature Temperature Source Pulse Rate 99 H 98 H 97 H Pulse Rate from SpO2 Sensor 99 H 99 H 97 H Respiratory Rate 16 28 H 16 Respiratory Effort / Characteristics Respiratory Depth Blood Pressure Blood Pressure Mean Blood Pressure Position Pulse Oximetry 92 92 93 Oxygen Delivery Method Oxygen Flow Rate Sepsis Recent Fever Within 48 Hours Sepsis New/Unexplained Change in Mental Status Sepsis Action Taken by Nursing 08/30/23 00:50 08/30/23 01:00 08/30/23 01:10 Temperature Temperature Source Pulse Rate 94 H 94 H 94 H Pulse Rate from SpO2 Sensor 95 H 94 H 93 H Respiratory Rate 16 16 16 Respiratory Effort / Characteristics Respiratory Depth Blood Pressure Blood Pressure Mean Blood Pressure Position Pulse Oximetry 91 91 91 Oxygen Delivery Method Oxygen Flow Rate Sepsis Recent Fever Within 48 Hours Sepsis New/Unexplained Change in Mental Status Sepsis Action Taken by Nursing 08/30/23 01:20 08/30/23 01:26 08/30/23 01:30 Temperature Temperature Source Pulse Rate 90 90 Pulse Rate from SpO2 Sensor 90 91 H Respiratory Rate 19 15 Respiratory Effort / Characteristics Respiratory Depth Blood Pressure 107/67 Blood Pressure Mean 85 Blood Pressure Position Pulse Oximetry 92 90 Oxygen Delivery Method Oxygen Flow Rate Sepsis Recent Fever Within 48 Hours Sepsis New/Unexplained Change in Mental Status Sepsis Action Taken by Nursing 08/30/23 01:32 08/30/23 01:41 08/30/23 01:50 Temperature Temperature Source Pulse Rate 91 H 91 H 90 Pulse Rate from SpO2 Sensor 91 H 91 H 90 Respiratory Rate 16 16 16 Respiratory Effort / Characteristics Respiratory Depth Blood Pressure Blood Pressure Mean Blood Pressure Position Pulse Oximetry 92 90 Oxygen Delivery Method Oxygen Flow Rate Sepsis Recent Fever Within 48 Hours Sepsis New/Unexplained Change in Mental Status Sepsis Action Taken by Nursing 08/30/23 02:00 08/30/23 02:00 08/30/23 02:00 Temperature Temperature Source Pulse Rate 91 H Pulse Rate from SpO2 Sensor 92 H Respiratory Rate 17 Respiratory Effort / Characteristics Non-Labored Respiratory Depth Normal Blood Pressure 128/90 Blood Pressure Mean 97 Blood Pressure Position Pulse Oximetry Oxygen Delivery Method Oxygen Flow Rate Sepsis Recent Fever Within 48 Hours Sepsis New/Unexplained Change in Mental Status Sepsis Action Taken by Nursing 08/30/23 02:10 08/30/23 02:20 08/30/23 02:30 Temperature Temperature Source Pulse Rate 89 90 90 Pulse Rate from SpO2 Sensor 89 89 90 Respiratory Rate 19 16 17 Respiratory Effort / Characteristics Respiratory Depth Blood Pressure Blood Pressure Mean Blood Pressure Position Pulse Oximetry 92 92 92 Oxygen Delivery Method Oxygen Flow Rate Sepsis Recent Fever Within 48 Hours Sepsis New/Unexplained Change in Mental Status Sepsis Action Taken by Nursing 08/30/23 02:30 08/30/23 02:40 08/30/23 02:50 Temperature Temperature Source Pulse Rate 88 87 Pulse Rate from SpO2 Sensor 88 87 Respiratory Rate 14 15 Respiratory Effort / Characteristics Respiratory Depth Blood Pressure 118/71 Blood Pressure Mean 86 Blood Pressure Position Pulse Oximetry 95 92 Oxygen Delivery Method Oxygen Flow Rate Sepsis Recent Fever Within 48 Hours Sepsis New/Unexplained Change in Mental Status Sepsis Action Taken by Nursing 08/30/23 02:53 08/30/23 03:00 08/30/23 03:00 Temperature Temperature Source Pulse Rate 86 Pulse Rate from SpO2 Sensor 87 Respiratory Rate 14 Respiratory Effort / Characteristics Non-Labored Respiratory Depth Normal Blood Pressure 134/79 Blood Pressure Mean 106 Blood Pressure Position Pulse Oximetry 94 Oxygen Delivery Method Oxygen Flow Rate Sepsis Recent Fever Within 48 Hours Sepsis New/Unexplained Change in Mental Status Sepsis Action Taken by Nursing 08/30/23 03:10 Temperature Temperature Source Pulse Rate 87 Pulse Rate from SpO2 Sensor 87 Respiratory Rate 13 Respiratory Effort / Characteristics Respiratory Depth Blood Pressure Blood Pressure Mean Blood Pressure Position Pulse Oximetry 94 Oxygen Delivery Method Oxygen Flow Rate Sepsis Recent Fever Within 48 Hours Sepsis New/Unexplained Change in Mental Status Sepsis Action Taken by Nursing VITALS: Vitals are noted on the nurse's note and reviewed by myself. Vital signs stable. GENERAL: Morbidly obese white female with pickwickian body type. She is speaking in short sentences. HEAD: Normocephalic atraumatic. NECK: Supple without nuchal rigidity. No lymphadenopathy. No thyromegaly. Cervical spine is nontender. HEART: Regular rate and rhythm without murmurs gallops or rubs. LUNGS: Diffuse wheezing and rhonchi throughout ABDOMEN: Positive normal bowel sounds x 4. Soft, nontender, without masses or organomegaly. No guarding or rebound tenderness. MUSCULOSKELETAL: No muscle atrophy, erythema, or edema noted. Full range of motion in all extremities. Course Administered Medications Alprazolam (Alprazolam 0.5 Mg Tablet) 0.5 mg PO 2100 [facility] Stop: 09/29/23 20:59 Last Admin: 08/30/23 20:30 Dose: 0.5 mg Documented By: CONSTANCE Budesonide (Budesonide 0.5 Mg/2 Ml Vial (Pulmicort)) 0.5 mg NEB BIDR [facility] Stop: 09/29/23 06:59 Last Admin: 08/30/23 19:37 Dose: 0.5 mg Documented By: Admin: 08/30/23 07:20 Dose: 0.5 mg Documented By: JESSICA Bumetanide (Bumetanide 1 Mg Tab) 4 mg PO BID17 [facility] Stop: 09/29/23 08:59 Last Admin: 08/30/23 17:20 Dose: 4 mg Documented By: Admin: 08/30/23 09:11 Dose: 4 mg Documented By: ÁGNEL Buprenorphine/Naloxone (Buprenorphine/Naloxone 8/2 Mg Tab) 1 tab SL BID [facility] Stop: 09/29/23 08:59 Last Admin: 08/30/23 20:29 Dose: 1 tab Documented By: Admin: 08/30/23 09:12 Dose: 1 tab Documented By: ÁNGEL Docusate Sodium (Docusate Sodium 100 Mg Cap) 100 mg PO BID [facility] Stop: 09/29/23 08:59 Last Admin: 08/30/23 20:25 Dose: Not Given Documented By: Admin: 08/30/23 09:13 Dose: Not Given Documented By: ÁNGEL Enoxaparin Sodium (Enoxaparin 150 Mg/Ml Syr) 150 mg SQ QAM [facility] Stop: 09/29/23 08:59 Last Admin: 08/30/23 09:13 Dose: 150 mg Documented By: ÁNGEL Fluticasone Furoate (Fluticasone Furoate 200mcg 14 Puffs/Inhaler) 1 puffs INH DAILY [facility] Stop: 09/29/23 08:59 Last Admin: 08/30/23 13:06 Dose: 1 puffs Documented By: ÁNGEL Guaifenesin (Guaifenesin 600 Mg Tabcr) 600 mg PO Q12 [facility] Stop: 09/29/23 08:59 Last Admin: 08/30/23 20:25 Dose: Not Given Documented By: Admin: 08/30/23 09:12 Dose: Not Given Documented By: ÁNGEL Azithromycin 500 mg/ Dextrose 255 mls @ 125 mls/hr IV Q24H [facility] Stop: 09/06/23 05:59 Last Infusion: 08/30/23 10:27 Dose: Infused Documented By: Admin: 08/30/23 07:47 Dose: 125 mls/hr Documented By: ÁNGEL Methylprednisolone 20 mg/ (Syringe) 0.32 mls @ 1.5 mls/min IV Q8H [facility] Stop: 09/29/23 07:59 Last Admin: 08/30/23 17:20 Dose: 1.5 mls/min Documented By: Admin: 08/30/23 09:11 Dose: 1.5 mls/min Documented By: ÁNGEL Insulin Aspart (Insulin Aspart Per Unit Charge) 0 units SC ACHS [facility] Stop: 09/29/23 07:29 Last Admin: 08/30/23 21:31 Dose: Not Given Documented By: Admin: 08/30/23 18:12 Dose: 28 units Documented By: ÁNGEL Co-signed By: MORE Admin: 08/30/23 13:05 Dose: 30 units Documented By: ÁGNEL Co-signed By: BRANDEE Admin: 08/30/23 09:11 Dose: 18 units Documented By: ÁNGEL Co-signed By: SHUKRI Insulin Glargine (Lantus Per Unit Charge) 60 units SQ QAM [facility] Stop: 09/29/23 08:59 Last Admin: 08/30/23 09:12 Dose: 60 units Documented By: ÁNGEL Co-signed By: SHUKRI Levalbuterol HCl (Levalbuterol Hcl 0.63 Mg/3 Ml Neb) 0.63 mg NEB QIDR [facility]; Protocol Stop: 09/29/23 14:59 Last Admin: 08/30/23 19:37 Dose: 0.63 mg Documented By: Admin: 08/30/23 15:40 Dose: 0.63 mg Documented By: JESSICA Polyethylene Glycol (Polyethylene (Miralax) 17 Gm Pack) 17 gm PO BID [facility] Stop: 09/29/23 08:59 Last Admin: 08/30/23 20:25 Dose: Not Given Documented By: Admin: 08/30/23 09:13 Dose: Not Given Documented By: ÁNGEL Potassium Chloride (Potassium Chloride Crtab 20 Meq Tabcr) 20 meq PO BID [facility] Stop: 09/29/23 20:59 Last Admin: 08/30/23 20:30 Dose: 20 meq Documented By: CONSTANCE Quetiapine Fumarate (Quetiapine Fumarate 200 Mg Tab) 200 mg PO HS [facility] Stop: 09/29/23 20:59 Last Admin: 08/30/23 20:30 Dose: 200 mg Documented By: CONSTANCE Umeclidinium/Vilanterol (Umeclidinium/Vilanterol 62.5/25mcg 7 Puffs/Inhaler) 1 puffs INH DAILY [facility] Stop: 09/29/23 08:59 Last Admin: 08/30/23 13:06 Dose: 1 puffs Documented By: ÁNGEL Discontinued Medications Albuterol (Albut/Ipratrop 3mg/0.5mg Neb 3 Ml Vial) 3 ml NEB QIDR [facility]; Protocol Stop: 09/29/23 06:59 Last Admin: 08/30/23 11:17 Dose: 3 ml Documented By: Admin: 08/30/23 07:20 Dose: 3 ml Documented By: JESSICA Albuterol (Albut/Ipratrop 3mg/0.5mg Neb 3 Ml Vial) 12 ml NEB ONE ONE; Protocol Stop: 08/30/23 05:34 Last Admin: 08/30/23 05:54 Dose: 12 ml Documented By: LYRIC Alprazolam (Alprazolam 0.5 Mg Tablet) 0.5 mg PO TID PRN PRN Reason: Anxiety Stop: 09/29/23 05:17 Last Admin: 08/30/23 15:07 Dose: 0.5 mg Documented By: Admin: 08/30/23 05:46 Dose: 0.5 mg Documented By: KATY Glycerin (Glycerin Adult 12 Supp/Box Supp) 1 supp TX NOW ONE Stop: 08/30/23 21:16 Last Admin: 08/30/23 21:26 Dose: Not Given Documented By: CONSTANCE Potassium Chloride (K Matias / Wtr) 10 meq in 100 mls @ 100 mls/hr IV Q1H [facility] Stop: 08/30/23 05:14 Last Infusion: 08/30/23 08:58 Dose: Infused Documented By: Admin: 08/30/23 05:28 Dose: 100 mls/hr Documented By: Infusion: 08/30/23 05:28 Dose: Infused Documented By: Admin: 08/30/23 04:09 Dose: 100 mls/hr Documented By: KATY Magnesium Sulfate/Dextrose (Magnesium Sulfate / D5w) 1 gm in 100 mls @ 50 mls/hr IV ONE ONE Stop: 08/30/23 05:10 Last Infusion: 08/30/23 08:58 Dose: Infused Documented By: Admin: 08/30/23 04:09 Dose: 50 mls/hr Documented By: KATY Methylprednisolone (Methylprednisolone 125 Mg/2 Ml Vial) 125 mg IV NOW STA Stop: 08/29/23 23:59 Last Admin: 08/30/23 00:12 Dose: 125 mg Documented By: KATY Potassium Chloride (Potassium Chloride Crtab 20 Meq Tabcr) 20 meq PO BID [facility] Stop: 09/29/23 08:59 Last Admin: 08/30/23 09:12 Dose: 20 meq Documented By: ÁNGEL Potassium Chloride (Potassium Chloride Crtab 20 Meq Tabcr) 40 meq PO NOW STA Stop: 08/30/23 11:13 Last Admin: 08/30/23 13:05 Dose: 40 meq Documented By: ÁNGEL Medical Decision Making Differential Diagnosis Differential diagnosis includes, but is not limited to: Myocardial infarction, dysrhythmia, pericarditis, pneumothorax, aortic aneurysm/dissection, DVT/PE, anxiety, GERD, PUD, electrolyte imbalance, thyroid disorder, pneumonia, bronchitis, pancreatitis, and others Laboratory Data 08/29/23 23:50 08/29/23 23:50 Lab Results 08/29/23 08/29/23 08/30/23 Range/Units 23:45 23:50 00:35 WBC 18.64 H (4.8-10.8) K/ul RBC 5.80 H (4.20-5.40) M/uL Hgb 15.0 (12.0-16.0) g/dl Hct 46.9 (37.0-47.0) % MCV 80.9 (80.0-100.0) fL MCH 25.9 (25.0-34.0) pg MCHC 32.0 (32.0-36.0) g/dL RDW Std Deviation 47.5 H (36.4-46.3) fL RDW Coeff of Malick 17.5 H (11.5-14.5) % Plt Count 273 (130-400) K/uL MPV 9.6 (9.4-12.4) fL Immature Gran % (Auto) 0.7 % Neut % (Auto) 75.9 % Lymph % (Auto) 18.8 % [place] % (Auto) 3.4 % Eos % (Auto) 0.9 % Baso % (Auto) 0.3 % Neut # (Auto) 14.16 H (1.40-6.50) K/uL Lymph # (Auto) 3.51 H (1.20-3.40) K/uL [place] # (Auto) 0.63 H (0.11-0.59) K/uL Eos # (Auto) 0.16 (0.00-0.50) K/uL Baso # (Auto) 0.05 (0.00-0.20) K/uL Immature Gran # (Auto) 0.13 (0.01-0.20) K/uL VBG pH 7.49 H (7.36-7.41) VBG pCO2 50 (38-50) mmHg VBG pO2 69 mmHg VBG HCO3 38 mmol/L VBG O2 Saturation 94.8 % VBG Base Excess 12.7 mEq/L Carboxyhemoglobin 7.8 % THgb Sodium 136 (136-145) mmol/L Potassium 3.0 L (3.5-5.1) mmol/L Chloride 90 L (98-107) mmol/L Carbon Dioxide 35 H (21-32) mmol/L Anion Gap 11 (3-11) BUN 30 H (6-23) mg/dl Creatinine 0.93 (0.6-1.2) mg/dl Est Cr Clr Drug Dosing 66.1 ml/min Est GFR ( Amer) 76.3 ml/min Est GFR (Non-Af Amer) 65.9 ml/min BUN/Creatinine Ratio 32.3 H (10-20) Glucose 314 H* (70-99(Fasting)) mg/dl Calcium 8.9 (8.6-10.3) mg/dl Magnesium 1.7 (1.7-2.4) mg/dl Total Bilirubin 0.3 (0.2-1.0) mg/dl AST 9 L (13-39) U/L ALT 12 (7-52) U/L Alkaline Phosphatase 101 (34-104) U/L Troponin I High Sens 21.9 H (0-14) pg/ml B-Natriuretic Peptide 95 (0-100) pg/ml Total Protein 6.6 (6.0-8.3) gm/dl Albumin 3.8 (3.4-5.0) gm/dl Globulin 2.8 (2.5-4.0) gm/dl Albumin/Globulin Ratio 1.4 (0.9-2) Adenovirus (PCR) Not Detected (NotDetected) B. pertussis DNA (PCR) Not Detected (NotDetected) B.parapertussis DNA PCR Not Detected (NotDetected) C. pneumoniae DNA (PCR) Not Detected (NotDetected) Coronavirus OC43 (PCR) Not Detected (NotDetected) Coronavirus HKU1 (PCR) Not Detected (NotDetected) Coronavirus 229E (PCR) Not Detected (NotDetected) SARS-CoV-2 (PCR) Not Detected (NotDetected) Coronavirus NL63 (PCR) Not Detected (NotDetected) Human Metapneumovir PCR Not Detected (NotDetected) Influenza Type A (PCR) Not Detected (NotDetected) Influenza Type B (PCR) Not Detected (NotDetected) M. pneumoniae (PCR) Not Detected (NotDetected) Parainfluenza 1 (PCR) Not Detected (NotDetected) Parainfluenza 2 (PCR) Not Detected (NotDetected) Parainfluenza 3 (PCR) Not Detected (NotDetected) Parainfluenza 4 (PCR) Not Detected (NotDetected) RSV (PCR) Not Detected (NotDetected) Entero/Rhino (PCR) DETECTED A (NotDetected) 08/30/23 Range/Units 01:55 WBC (4.8-10.8) K/ul RBC (4.20-5.40) M/uL Hgb (12.0-16.0) g/dl Hct (37.0-47.0) % MCV (80.0-100.0) fL MCH (25.0-34.0) pg MCHC (32.0-36.0) g/dL RDW Std Deviation (36.4-46.3) fL RDW Coeff of Malick (11.5-14.5) % Plt Count (130-400) K/uL MPV (9.4-12.4) fL Immature Gran % (Auto) % Neut % (Auto) % Lymph % (Auto) % [place] % (Auto) % Eos % (Auto) % Baso % (Auto) % Neut # (Auto) (1.40-6.50) K/uL Lymph # (Auto) (1.20-3.40) K/uL [place] # (Auto) (0.11-0.59) K/uL Eos # (Auto) (0.00-0.50) K/uL Baso # (Auto) (0.00-0.20) K/uL Immature Gran # (Auto) (0.01-0.20) K/uL VBG pH (7.36-7.41) VBG pCO2 (38-50) mmHg VBG pO2 mmHg VBG HCO3 mmol/L VBG O2 Saturation % VBG Base Excess mEq/L Carboxyhemoglobin % THgb Sodium (136-145) mmol/L Potassium (3.5-5.1) mmol/L Chloride (98-107) mmol/L Carbon Dioxide (21-32) mmol/L Anion Gap (3-11) BUN (6-23) mg/dl Creatinine (0.6-1.2) mg/dl Est Cr Clr Drug Dosing ml/min Est GFR ( Amer) ml/min Est GFR (Non-Af Amer) ml/min BUN/Creatinine Ratio (10-20) Glucose (70-99(Fasting)) mg/dl Calcium (8.6-10.3) mg/dl Magnesium (1.7-2.4) mg/dl Total Bilirubin (0.2-1.0) mg/dl AST (13-39) U/L ALT (7-52) U/L Alkaline Phosphatase (34-104) U/L Troponin I High Sens 20.0 H (0-14) pg/ml B-Natriuretic Peptide (0-100) pg/ml Total Protein (6.0-8.3) gm/dl Albumin (3.4-5.0) gm/dl Globulin (2.5-4.0) gm/dl Albumin/Globulin Ratio (0.9-2) Adenovirus (PCR) (NotDetected) B. pertussis DNA (PCR) (NotDetected) B.parapertussis DNA PCR (NotDetected) C. pneumoniae DNA (PCR) (NotDetected) Coronavirus OC43 (PCR) (NotDetected) Coronavirus HKU1 (PCR) (NotDetected) Coronavirus 229E (PCR) (NotDetected) SARS-CoV-2 (PCR) (NotDetected) Coronavirus NL63 (PCR) (NotDetected) Human Metapneumovir PCR (NotDetected) Influenza Type A (PCR) (NotDetected) Influenza Type B (PCR) (NotDetected) M. pneumoniae (PCR) (NotDetected) Parainfluenza 1 (PCR) (NotDetected) Parainfluenza 2 (PCR) (NotDetected) Parainfluenza 3 (PCR) (NotDetected) Parainfluenza 4 (PCR) (NotDetected) RSV (PCR) (NotDetected) Entero/Rhino (PCR) (NotDetected) Imaging Data Radiologist's Impression: Chest X-Ray 08/29/23 23:58 XR chest 1V portable HISTORY: Dyspnea COMPARISON: Chest 08/16/2023. FINDINGS: The lungs are clear. Cardiac silhouette is normal in size. No pleural effusions. No pneumothorax. Stable deformity within the right anterior fourth rib again noted. IMPRESSION: No significant change compared to the prior study. No acute process. ACT 112: Negative or not required by law. Electronically signed by: Chester Salas M.D. 08/30/2023 7:50 AM MDM Narrative Physical exam and history were performed. Nursing notes, EMR, and Medication List were personally reviewed. No social concerns were identified as barriers to patients care. Patient appears to have shortness of breath bringing her to the ER. She has a history of COPD secondary to tobacco use and continues to smoke. She is with work of breathing on arrival. She has diffuse wheezing and rhonchi throughout. She did use her nebulizers and inhalers at home without relief. She was given IV Solu-Medrol. Fluids were held as she has history of CHF. An order was placed for continuous cardiac monitoring. The monitor shows a rate of 102 with sinus tachycardic rhythm. Patient's blood work is as above and was reviewed. She does have an elevated white count of 18,000. She does not have significant anemia or gross electrolyte imbalance. VBG shows pH of 7.49 but no other abnormality. She is slightly hypokalemic at 3.0. Glucose is 314. She does have a slight elevation of her troponin at 20. EKG appears nonischemic. Chest x-ray was reviewed by myself and radiology showing no significant acute process. Bio fire was performed and is POSITIVE for rhinovirus. Escalation of care is felt to be necessary for this patient. She is a bad COPD patient, with some clinical concern for adherence. She continues to use tobacco products, and now has positive rhinovirus infection with elevated troponin. Case was discussed with the on-call hospitalist service, who agreed to evaluate her here in the ER. Please see the hospitalist dictation for further patient course, plan, disposition. The chart was completed utilizing [employer] Voice [employer]ognition Software. Grammatical errors, random word insertions, pronoun errors, and incomplete sentences are an occasional consequence of this system due to software limitations, ambient noise, and hardware issues. Any formal questions or concerns about the content, text, or information contained within the body of this dictation should be directly addressed to the provider for clarification. . Impression & Plan COPD exacerbation, Acute on chronic respiratory failure with hypoxia Discharge Plan Visit Data Chief Complaint: Respiratory Problems Stated Complaint: SOB,COPD ED Provider: [facility] ED Midlevel Provider: Jay Liu Discharge Problem: COPD exacerbation, Acute on chronic respiratory failure with hypoxia Patient Disposition: Admitted As Inpatient Discharge Instructions Interventions: ED Discharge Assessment Last Done: 08/30/23 05:19
[2023-08-30] MEDS: SOD PHOSPHATE/SOD BIPHOSPHATE ENEMA 132 ML BTL PR STA (23:50)
[2023-08-31] MEDS: INSULIN ASPART PER UNIT CHARGE SC SCH (02:05)
--- OUTSIDE RECORDS SUMMARY | 2023-08-31 04:40 | External Medical Summary | Continuity of Care Document ---
Author Name Unknown Organization [address] [place] [phone] Care Team Providers Care Greeting Card Writer Name Role Phone Radha Barboza Primary Care Physician [phone] Encounter [facility] [id number] Date(s): 08/26/23 - 08/26/23 [facility] 207 [facility] 1850 [facility] 207 [place] [address] [phone] Encounter Diagnosis Hypokalemia(Discharge Diagnosis) - 08/26/23 Anxiety(Discharge Diagnosis) - 08/27/23 COPD without exacerbation(Discharge Diagnosis) - 08/27/23 Congestive heart failure(Discharge Diagnosis) - 08/27/23 Diabetes(Discharge Diagnosis) - 08/27/23 Discharge Disposition: Home or Self Care Attending [...] 102 lancet, Refills: 0, 32G x , [id number] Start Date: 06/30/23 Status: Ordered ALPRAZolam 0.5 mg oral tablet Start: 08/26/23 16:22:00 EDT, 1 tab, PO, bid, Disp# 90 tab, Refills: 5, Make take an extra tablet for acute panic attacks. Max 3/day, PRN: as needed for anxiety, [id number], Earliest Fill Date: 09/11/23 Start Date: 08/26/23 Status: Ordered bumetanide 2 mg oral tablet Start: 03/09/23 22:51:00 EST, See Instructions, Disp# 360 tab, Refills: 3, TAKE 2 TABLETS BY MOUTH IN THE MORNING AND 2 TABLET AT LUNCHTIME, [id number] Start Date: 03/09/23 Status: Ordered buprenorphine-naloxone 8 mg-2 mg sublingual film Start: 08/03/23 13:45:00 EDT, 1 patch Start Date: 08/03/23 Status: Ordered buprenorphine-naloxone 8 mg-2 mg sublingual film Start: 08/28/23 11:44:00 EDT, 1 patch, SL, bid, Disp# 60 patch, Refills: 0, Pharmacy: [facility]acy #[id number] Start Date: 08/28/23 Stop Date: 09/27/23 Status: Ordered DEXCOM G6 SENSOR Start: 06/26/23 9:55:00 EST, DEXCOM G6 SENSOR, See Instructions, Disp# 3 unknown unit, Refills: 1, USE DIRECTED BY MD TO TEST GLUCOSE 4-5 TIMES A DAY, Pharmacy [facility] STORE [id number] Start Date: 06/26/23 Status: Ordered Dexcom G6 Sensor Kit Start: 06/24/23 9:01:00 EST, See Instructions, Disp# 1 kit, Refills: 5, Check BS up to three times daily, Note to Pharmacy: Uncontrolled DM2 (E11.65), Pharmacy: [facility]/pharmacy #[id number] Start Date: 06/24/23 Status: Ordered enoxaparin 150 mg/mL injectable solution Start: 06/24/23 9:03:00 EST, 1 mL, subQ, Daily, Disp# 30 mL, Refills: 11, Pharmacy: [facility]/pharmacy #[id number] Start Date: 06/24/23 Status: Ordered Klor-Con M20 oral tablet, extended release Start: 08/03/23 13:44:00 EDT, 2 tab, PO, Daily, take 2 tabs in AM and then 1 in PM Start Date: 08/03/23 Status: Ordered Lantus Solostar Pen Start: 09/25/14 10:14:00, 55 unit =, subQ, Daily Start Date: 09/25/14 Status: Ordered levalbuterol CFC free 45 mcg/inh inhalation aerosol Start: 08/26/23 16:26:00 EDT, 2 puff, inhaled, q6h, Disp# 15 g, Refills: 3, PRN: as needed for wheezing, Pharmacy: [facility]/pharmacy #[id number] Start Date: 08/26/23 Status: Ordered metOLazone 2.5 mg oral tablet Start: 08/13/23 11:01:00 EDT, 1 tab, PO, Daily Start Date: 08/13/23 Status: Ordered NovoLOG FlexPen 100 units/mL injectable solution Start: 02/17/23 15:10:00 EDT, 10 unit =, subQ, ac, Disp# 15 mL, Refills: 5, Pharmacy: [facility]/pharmacy #[id number] Start Date: 02/17/23 Status: Ordered ondansetron 4 mg oral tablet, disintegrating Start: 08/26/23 16:23:00 EDT, 1 tab, PO, q8h, Disp# 30 tab, Refills: 1, PRN: as needed for nausea/vomiting, Pharmacy: [facility]/pharmacy #[id number] Start Date: 08/26/23 Status: Ordered Ozempic (0.25 mg or 0.5 mg dose) 2 mg/3 mL subQ pen Start: 07/08/23 14:47:00 EDT, See Instructions, subQ, q7days, Disp# 3 mL, Refills: 1, Inject 0.25 mg every 7 days X 4 weeks then increase to 0.5 mg SQ every 7 days., Pharmacy: [facility]/pharmacy #[id number], Supply Start Date: 07/08/23 Status: Ordered Potassium Chloride (Eqv-K-Tab) 20 mEq oral tablet, extended release Start: 07/14/23 14:21:00 EDT, 1 tab, PO, tid, Disp# 90 tab, Refills: 3, Pharmacy: [facility]/pharmacy #[id number] Start Date: 07/14/23 Stop Date: 11/11/23 Status: Ordered predniSONE 10 mg oral tablet Start: 08/03/23 13:44:00 EDT, 1 tab, PO, Daily Start Date: 08/03/23 Status: Ordered Pulmicort Flexhaler Start: 06/19/23 13:53:00 EST Start Date: 06/19/23 Status: Ordered QUEtiapine 200 mg oral tablet Start: 06/22/23 17:20:00 EST, 1 tab, PO, Daily, Disp# 90 tab, Refills: 3, Pharmacy: [facility] #[id number] Start Date: 06/22/23 Status: Ordered Trelegy Ellipta 200 mcg-62.5 mcg-25 mcg/inh inhalation powder Start: 07/08/22 11:13:00 EDT Start Date: 07/08/22 Status: Ordered UltiCare Pen Needle 32G x 4mm Start: 07/08/23 14:51:00 EDT, See Instructions, Disp# 100 pen_needle, Refills: 1, Use three times daily, Note to Pharmacy: E11.65, Pharmacy: [facility]/pharmacy #[id number] Start Date: 07/08/23 Status: Ordered Ventolin HFA 90 mcg/inh inhalation aerosol Start: 08/13/23 11:23:00 EDT, 2 puff, inhaled, qid, Disp# 8 g, Refills: 5, PRN: as needed for wheezing, Pharmacy: [facility]/pharmacy #[id number] Start Date: 08/13/23 Status: Ordered Zaroxolyn 2.5 mg oral tablet Start: 08/12/23 17:12:00 EDT, See Instructions, Disp# 15 tab, Refills: 1, 1 tab QOD, Pharmacy: [facility]/pharmacy #[id number] Start Date: 08/12/23 Status: Ordered Mental Status 08/26/23 Barriers to Learning one year None evide nt Mandatory Health Literacy Documentation Yes Health Literacy Communication Barriers N ever Primary Language Indonesian Problem List Condition Confirmation Course Effective Dates [...] Status Clinical Service Informant Hypokalemia Discharge Diagnosis 08/26/23 Non-Specified Anxiety Discharge Diagnosis 08/27/23 COPD without exacerbation Discharge Diagnosis 08/27/23 Congestive heart failure Discharge Diagnosis 08/27/23 Diabetes Discharge Diagnosis 08/27/23 Procedures Procedure Date Related Diagnosis Body Site Status Bone marrow biopsy 2013 Comple ganesh Vital Signs Most recent to oldest [Reference Range]: 1 Patient Weight 92.6 kg (08/26/23 3:23 PM) Temperature [36.5-37.9 DegC] 36.7 DegC (08/26/23 3:23 PM) Heart Rate 92 bpm (08/26/23 3:23 PM) Respiratory Rate 20 br/min (08/26/23 3:23 PM) Blood Pressure 102/60mmHg (08/26/23 3:23 PM) Cuff Pulse Pressure 42 mmHg (08/26/23 3:23 PM) Social History Social History Type Response Smoking Status Current every day li ght smoker Sex Female Patient Care team information Care Team Personnel Name: ELENA Barboza Kimberly A Position: Physician Asst Exmpt - Family Med Member Role: Primary Care Provider Address: Address: [address] [place] [address] Name: MARGARET Dunn Jo Ann M Position: Nurse Pract - Hem/Onc Member Role: Lifetime Relationship Address: Address: [address] [place] [address] Care Team Related Persons Name: MO SAMUEL Address: [facility]
--- OUTSIDE RECORDS SUMMARY | 2023-08-31 05:30 | External Medical Summary | Continuity of Care Document ---
Author Name Unknown Organization [address] [place] [phone] Care Team Providers Care [facility] Name Role Phone Jabari Radha A Primary Care Physician [phone] Encounter [facility] [id number] Date(s): 08/27/23 - 08/27/23 [facility] 18[facility] 207 [facility] 1850 [facility] 207 [place] [address] [phone] Encounter Diagnosis Diabetes(Discharge Diagnosis) - 08/28/23 Multiple myeloma(Discharge Diagnosis) - 08/28/23 Opioid use disorder in remission(Discharge Diagnosis) - 08/28/23 Chronic low back pain(Discharge Diagnosis) - 08/28/23 Discharge Disposition: Home or Self Care Attending [...] 102 lancet, Refills: 0, 32G x , Pharmacy:[facility]/pharmacy #[id number] Start Date: 06/30/23 Status: Ordered ALPRAZolam 0.5 mg oral tablet Start: 08/26/23 16:22:00 EDT, 1 tab, PO, bid, Disp# 90 tab, Refills: 5, Make take an extra tablet for acute panic attacks. Max 3/day, PRN: as needed for anxiety, Pharmacy: [facility]/pharmacy #[id number], Earliest Fill Date: 09/11/23 Start Date: 08/26/23 Status: Ordered bumetanide 2 mg oral tablet Start: 03/09/23 22:51:00 EST, See Instructions, Disp# 360 tab, Refills: 3, TAKE 2 TABLETS BY MOUTH IN THE MORNING AND 2 TABLET AT LUNCHTIME, [id number] Start Date: 03/09/23 Status: Ordered buprenorphine-naloxone 8 mg-2 mg sublingual film Start: 08/03/23 13:45:00 EDT, 1 patch Start Date: 08/03/23 Status: Ordered buprenorphine-naloxone 8 mg-2 mg sublingual film Start: 08/28/23 11:44:00 EDT, 1 patch, SL, bid, Disp# 60 patch, Refills: 0, Pharmacy: [facility]/pharmacy #[id number] Start Date: 08/28/23 Stop Date: 09/27/23 Status: Ordered DEXCOM G6 SENSOR Start: 06/26/23 9:55:00 EST, DEXCOM G6 SENSOR, See Instructions, Disp# 3 unknown unit, Refills: 1, USE DIRECTED BY MD TO TEST GLUCOSE 4-5 TIMES A DAY, Pharmacy [facility] STORE [id number] Start Date: 06/26/23 Status: Ordered Dexcom G6 Sensor Kit Start: 06/24/23 9:01:00 EST, See Instructions, Disp# 1 kit, Refills: 5, Check BS up to three times daily, Note to Pharmacy: Uncontrolled DM2 (E11.65), Pharmacy: [facility]/pharmacy #[id number] Start Date: 06/24/23 Status: Ordered enoxaparin 150 mg/mL injectable solution Start: 06/24/23 9:03:00 EST, 1 mL, subQ, Daily, Disp# 30 mL, Refills: 11, Pharmacy: [facility]/pharmacy #[id number] Start Date: 06/24/23 [...] 3, PRN: as needed for wheezing, Pharmacy: [facility]/pharmacy #[id number] Start Date: 08/26/23 Status: Ordered metOLazone 2.5 mg oral tablet Start: 08/13/23 11:01:00 EDT, 1 tab, PO, Daily Start Date: 08/13/23 Status: Ordered NovoLOG FlexPen 100 units/mL injectable solution Start: 02/17/23 15:10:00 EDT, 10 unit =, subQ, ac, Disp# 15 mL, Refills: 5, Pharmacy: [facility]/pharmacy #[id number] Start Date: 02/17/23 Status: Ordered ondansetron 4 mg oral tablet, disintegrating Start: 08/26/23 16:23:00 EDT, 1 tab, PO, q8h, Disp# 30 tab, Refills: 1, PRN: as needed for nausea/vomiting, Pharmacy: [facility]/pharmacy #[id number] Start Date: 08/26/23 Status: Ordered Ozempic (0.25 mg or 0.5 mg dose) 2 mg/3 mL subQ pen Start: 07/08/23 14:47:00 EDT, See Instructions, subQ, q7days, Disp# 3 mL, Refills: 1, Inject 0.25 mg every 7 days X 4 weeks then increase to 0.5 mg SQ every 7 days., Pharmacy: [facility]/pharmacy #[id number], Supply Start Date: 07/08/23 Status: Ordered Potassium Chloride (Eqv-K-Tab) 20 mEq oral tablet, extended release Start: 07/14/23 14:21:00 EDT, 1 tab, PO, tid, Disp# 90 tab, Refills: 3, Pharmacy: [facility]/pharmacy #[id number] Start Date: 07/14/23 Stop Date: 11/11/23 Status: Ordered predniSONE 10 mg oral tablet Start: 08/03/23 13:44:00 EDT, 1 tab, PO, Daily Start Date: 08/03/23 Status: Ordered Pulmicort Flexhaler Start: 06/19/23 13:53:00 EST Start Date: 06/19/23 Status: Ordered QUEtiapine 200 mg oral tablet Start: 06/22/23 17:20:00 EST, 1 tab, PO, Daily, Disp# 90 tab, Refills: 3, Pharmacy: [facility]/pharmacy #[id number] Start Date: 06/22/23 Status: Ordered Trelegy Ellipta 200 mcg-62.5 mcg-25 mcg/inh inhalation powder Start: 07/08/22 11:13:00 EDT Start Date: 07/08/22 Status: Ordered UltiCare Pen Needle 32G x 4mm Start: 07/08/23 14:51:00 EDT, See Instructions, Disp# 100 pen_needle, Refills: 1, Use three times daily, Note to Pharmacy: E11.65, Pharmacy: [facility]/pharmacy #[id number] Start Date: 07/08/23 Status: Ordered Ventolin HFA 90 mcg/inh inhalation aerosol Start: 08/13/23 11:23:00 EDT, 2 puff, inhaled, qid, Disp# 8 g, Refills: 5, PRN: as needed for wheezing, Pharmacy: [facility]/pharmacy #[id number] Start Date: 08/13/23 Status: Ordered Zaroxolyn 2.5 mg oral tablet Start: 08/12/23 17:12:00 EDT, See Instructions, Disp# 15 tab, Refills: 1, 1 tab QOD, Pharmacy: [facility]/pharmacy #[id number] Start Date: 08/12/23 Status: Ordered Mental Status 08/27/23 Barriers to Learning one year None evide nt Mandatory Health Literacy Documentation Yes Health Literacy Communication Barriers N ever Primary Language Japanese Problem List Condition Confirmation Course Effective Dates [...] Dates Health Status Cl inical Service Informant Multiple myeloma Discharge Diagnosis 08/28/23 Non-Specified Opioid use disorder in remission Discharge Diagnosis 08/28/23 Non-Specified Diabetes Discharge Diagnosis 08/28/23 Non-Specified Chronic low back pain Discharge Diagnosis 08/28/23 Non-Specified Procedures Procedure Date Related Diagnosis Body Site Status Bone marrow biopsy 2013 Comple ganesh Vital Signs Most recent to oldest [Reference Range]: 1 Heart Rate 96 bpm (08/27/23 3:25 PM) Respiratory Rate 19 br/min (08/27/23 3:25 PM) Blood Pressure 116/76mmHg (08/27/23 3:25 PM) Cuff Pulse Pressure 40 mmHg (08/27/23 3:25 PM) Social History Social History Type Response Smoking Status Current every day li ght smoker Sex Female Patient Care team information Care Team Personnel Name: ELENA Barboza Kimberly A Position: Physician Asst Exmpt - Family Med Member Role: Primary Care Provider Address: Address: [address] [place] [phone] Name: MARGARET Dunn Jo Ann M Position: Nurse Pract - Hem/Onc Member Role: Lifetime Relationship Address: Address: [address] [place] [phone] [place] Care Team Related Persons Name: MO SAMUEL Address: [facility]
--- OUTSIDE RECORDS SUMMARY | 2023-08-31 05:30 | External Medical Summary | Continuity of Care Document ---
Author Name Unknown Organization [place] [id number] [place] [phone] Care Team Providers Care Public Safety Officer Name Role Phone Radha Barboza Primary Care Physician [phone] Encounter [facility] [id number] Date(s): 08/27/23 - 08/27/23 [facility] 18[address] [facility] 207 [facility] 1850 [facility] [place] [address] [phone] Encounter Diagnosis Hypokalemia(Final) - Discharge Disposition: Home [...] 0, 32G x , Pharmacy:[facility]/pharmacy #[id number] Start Date: 06/30/23 Status: Ordered ALPRAZolam 0.5 mg oral tablet Start: 08/26/23 16:22:00 EDT, 1 tab, PO, bid, Disp# 90 tab, Refills: 5, Make take an extra tablet for acute panic attacks. Max 3/day, PRN: as needed for anxiety, [id number], Earliest Fill Date: 09/11/23 Start Date: 08/26/23 Status: Ordered bumetanide 2 mg oral tablet Start: 03/09/23 22:51:00 EST, See Instructions, Disp# 360 tab, Refills: 3, TAKE 2 TABLETS BY MOUTH IN THE MORNING AND 2 TABLET AT LUNCHTIME, [id number] Start Date: 03/09/23 Status: Ordered buprenorphine-naloxone 8 mg-2 mg sublingual film Start: 08/03/23 13:45:00 EDT, 1 patch Start Date: 08/03/23 Status: Ordered buprenorphine-naloxone 8 mg-2 mg sublingual film Start: 08/28/23 11:44:00 EDT, 1 patch, SL, bid, Disp# 60 patch, Refills: 0, [id number] Start Date: 08/28/23 Stop Date: 09/27/23 Status: Ordered DEXCOM G6 SENSOR Start: 06/26/23 9:55:00 EST, DEXCOM G6 SENSOR, See Instructions, Disp# 3 unknown unit, Refills: 1, USE DIRECTED BY MD TO TEST GLUCOSE 4-5 TIMES A DAY, Pharmacy [facility] STORE [id number] Start Date: 06/26/23 Status: Ordered Dexcom G6 Sensor Kit Start: 06/24/23 9:01:00 EST, See Instructions, Disp# 1 kit, Refills: 5, Check BS up to three times daily, Note to Pharmacy: Uncontrolled DM2 (E11.65), Pharmacy: [facility]/pharmacy #[id number] Start Date: 06/24/23 Status: Ordered enoxaparin 150 mg/mL injectable solution Start: 06/24/23 9:03:00 EST, 1 mL, subQ, Daily, Disp# 30 mL, Refills: 11, Pharmacy: [facility]/pharmacy #[id number] Start Date: 06/24/23 Status: Ordered Klor-Con [...] 3, PRN: as needed for wheezing, Pharmacy: [facility]/pharmacy #[id number] Start Date: 08/26/23 Status: Ordered metOLazone 2.5 mg oral tablet Start: 08/13/23 11:01:00 EDT, 1 tab, PO, Daily Start Date: 08/13/23 Status: Ordered NovoLOG FlexPen 100 units/mL injectable solution Start: 02/17/23 15:10:00 EDT, 10 unit =, subQ, ac, Disp# 15 mL, Refills: 5, Pharmacy: [facility]/pharmacy #[id number] Start Date: 02/17/23 Status: Ordered ondansetron 4 mg oral tablet, disintegrating Start: 08/26/23 16:23:00 EDT, 1 tab, PO, q8h, Disp# 30 tab, Refills: 1, PRN: as needed for nausea/vomiting, Pharmacy: [facility]/pharmacy #[id number] Start Date: 08/26/23 Status: Ordered Ozempic (0.25 mg or 0.5 mg dose) 2 mg/3 mL subQ pen Start: 07/08/23 14:47:00 EDT, See Instructions, subQ, q7days, Disp# 3 mL, Refills: 1, Inject 0.25 mg every 7 days X 4 weeks then increase to 0.5 mg SQ every 7 days., Pharmacy: [facility]/pharmacy #[id number], Supply Start Date: 07/08/23 Status: Ordered Potassium Chloride (Eqv-K-Tab) 20 mEq oral tablet, extended release Start: 07/14/23 14:21:00 EDT, 1 tab, PO, tid, Disp# 90 tab, Refills: 3, Pharmacy: [facility]/pharmacy #[id number] Start Date: 07/14/23 Stop Date: 11/11/23 Status: Ordered predniSONE 10 mg oral tablet Start: 08/03/23 13:44:00 EDT, 1 tab, PO, Daily Start Date: 08/03/23 Status: Ordered Pulmicort Flexhaler Start: 06/19/23 13:53:00 EST Start Date: 06/19/23 Status: Ordered QUEtiapine 200 mg oral tablet Start: 06/22/23 17:20:00 EST, 1 tab, PO, Daily, Disp# 90 tab, Refills: 3, Pharmacy: [facility]/pharmacy #[id number] Start Date: 06/22/23 Status: Ordered Trelegy Ellipta 200 mcg-62.5 mcg-25 mcg/inh inhalation powder Start: 07/08/22 11:13:00 EDT Start Date: 07/08/22 Status: Ordered UltiCare Pen Needle 32G x 4mm Start: 07/08/23 14:51:00 EDT, See Instructions, Disp# 100 pen_needle, Refills: 1, Use three times daily, Note to Pharmacy: E11.65, Pharmacy: [facility]/pharmacy #[id number] Start Date: 07/08/23 Status: Ordered Ventolin HFA 90 mcg/inh inhalation aerosol Start: 08/13/23 11:23:00 EDT, 2 puff, inhaled, qid, Disp# 8 g, Refills: 5, PRN: as needed for wheezing, Pharmacy: [facility]/pharmacy #[id number] Start Date: 08/13/23 Status: Ordered Zaroxolyn 2.5 mg oral tablet Start: 08/12/23 17:12:00 EDT, See Instructions, Disp# 15 tab, Refills: 1, 1 tab QOD, Pharmacy: [facility]/pharmacy #[id number] Start Date: 08/12/23 Status: Ordered Problem [...] Comprehensive Metabolic Panel (COMP META B PANEL) 08/27/23 Most recent to oldest [Reference Range]: 1 eGFR CKD-EPI [>60 mL/min/1.73 m2] 53 mL/ min/1.73 m2 *LOW* (08/27/23 2:32 PM) Estimated CrCl 52.95 mL/min (08/27/23 7:21 PM) Anion Gap [5-14 mmol/L] 14 mmol/L (08/27/23 2:32 PM) Alb [3.5-5.2 g/dL] 4.1 g/dL (08/27/23 2:32 PM) Alk Phos [35-115 unit/L] 108 unit/L 1 (08/27/23 2:32 PM) ALT [0-33 unit/L] 14 unit/L (08/27/23 2:32 PM) AST [0-32 unit/L] 12 unit/L (08/27/23 2:32 PM) BUN [6-23 mg/dL] 30 mg/dL *HI* (08/27/23 2:32 PM) Ca [8.4-10.2 mg/dL] 9.6 mg/dL (08/27/23 2:32 PM) Cl- [98-107 mmol/L] 88 mmol/L *LOW* (08/27/23 2:32 PM) HCO3 [22-29 mmol/L] 36 mmol/L *HI* (08/27/23 2:32 PM) Cret [0.60-1.00 mg/dL] 1.17 mg/dL *HI* (08/27/23 2:32 PM) Glu [74-109 mg/dL] 141 mg/dL 2 *HI* (08/27/23 2:32 PM) K [3.5-5.1 mmol/L] 3.4 mmol/L *LOW* (08/27/23 2:32 PM) Na [136-145 mmol/L] 138 mmol/L (08/27/23 2:32 PM) T Bili [0.0-1.2 mg/dL] 0.2 mg/dL (08/27/23 2:32 PM) Prot [6.4-8.3 g/dL] 7.3 g/dL (08/27/23 2:32 PM) 1Result Comment: Low levels of ALKP may indicate a deficiency in zinc, magnesium, or malnutritionbutcan also be an indicator of a rare genetic disease hypophosphatasia (HPP). 2Result Comment: ADA recommendation for FASTING Serum/Plasma Glucose: Normal: 70-100 mg/dL Prediabetes: 100-125 mg/dL Diabetes: 126 mg/dL or higher Social History Social History Type Response Smoking Status Current every day ght smoker Sex Female Patient Care team information Care Team Personnel Name: ELENA Barboza, Radha Bhatia Position: Physician Asst Exmpt - Family Med Member Role: Primary Care Provider Address: Address: [address] [address] Name: MARGARET Dunn Jo Ann M Position: Nurse Pract - Hem/Onc Member Role: Lifetime Relationship Address: Address: [address] [place] [phone] [place] Care Team Related Persons Name: MO SAMUEL Address: [facility]
--- NOTE | 2023-08-31 07:34 | Hospitalist Progress Note ---
Date of Service August 31, 2023 Assessment & Plan (1) Moderate persistent asthma: (2) History of pulmonary embolism: (3) Opiate dependence: (4) Obesity hypoventilation syndrome: (5) Diabetes: (6) Chronic anticoagulation: (7) Tobacco abuse: Plan Acute on chronic respiratory failure with hypoxia/COPD exacerbation/obesity hypoventilation syndrome/ongoing tobacco abuse/history of PE Solu-Medrol 20 mg IV every 8 hours - Will transition to PO prednisone tomorrow a m Pulmicort Respules 0.5 mg inhaled twice daily Xopenex nebs Azithromycin 500 mg IV daily Guaifenesin extended release 1200 mg p.o. twice daily Bio fire positive for enterovirus/rhinovirus Tobacco cessation counseling Continue Trelegy Ellipta Flonase and Zyrtec added #Diabetes mellitus Glucose 314 on admission, continues to be markedly elevated in setting of steroid use Placed on low-dose Solu-Medrol 20 mg IV every 8 hours, and add Pulmicort Respules 0.5 mg inhaled twice daily to minimize glucose gel Continue glargine 60 units subq every morning Placed on Accu-Cheks with NovoLog SSI Carb ratio/correction factor tightened A1c 08/17/23 10.6; f/u recheck #HFpEF Overall looks dry Hold Bumex, metolazone #Hypokalemia/hypomagnesemia Potassium 3.0 and magnesium 1.7 on admission replete as indicated BMP am #Opiate dependence Continue Suboxone #Constipation Bowel regimen Encourage hydration #History of PE Continue Lovenox therapeutic dosing DVT: Lovenox Diet: DM2 Dispo: MEd surg Admission and Anticipated Discharge Date Admission Date: August 30, 2023 Supervising Physician Co-Signing Physician Notes I personally examined the patient and verified all rosario points of history and exam, discussed case, and agree with decision making with Dr Jun Schulz breathing feels better but still fairly harsh. Notes that she feels like the pollen here is probably more of a problem moving back home in [facility]. Vitals noted, in general she is awake and alert pleasant no distress. Lungs show reasonably coarse rhonchi bilaterally faint wheezing upper lobes slightly diminished air entry no accessory muscle use no conversational dyspnea good effort. Skin without rashes pallor or icterus. Acute moderate persistent asthma exacerbation - -Exacerbation likely from viral illness/also in high pollen count season. Has air-conditioning only in one room of her home. - Appears stable enough to go home, she is nervous about this, understandably. Transition to medications like she would be at home to give her the confidence that she will do okay. HFpEF - Appears euvolemic Hx of PE - continue Lovenox DM - monitor glucose level while on steroids, insulin management Subjective Patient seen and evaluated at bedside this morning. No acute events overnight. SOB have significally improved. She is back on room air. Physical exam pertinent with bilateral wheezing.. BSG very high since admission, worse with addition of steroids. Review of Systems Constitutional: as per Subjective / HPI Physical Exam Constitutional: WD/WN, vitals as above Respiratory: normal respiratory effort; no respiratory distress and no labored breathing Auscultation: + wheezes (bilateral) Cardiovascular: RRR, no murmur, no edema Gastrointestinal (Abdomen): normal bowel sounds, soft, nontender, no hepatosplenomegaly Skin: no rashes, warm and dry Neurologic: moves all extremities and awake Results & Data Results & Data Vital Signs (Past 12 Hours) Vital Signs Temp Pulse Pulse Resp BP Pulse Ox Pulse Ox 08/31/23 06:58 105 H 20 90 08/31/23 05:18 94 08/31/23 02:47 36.8 C 93 H 18 124/78 95 08/31/23 00:00 97 H 08/30/23 22:59 36.8 C 90 18 114/77 94 08/30/23 20:00 08/30/23 19:38 102 H 20 92 O2 Del Method O2 Del Method 08/31/23 06:58 Room Air 08/31/23 05:18 Room Air 08/31/23 02:47 Room Air 08/31/23 00:00 08/30/23 22:59 Room Air 08/30/23 20:00 Room Air 08/30/23 19:38 Room Air Resident Activity Tracking Resident Involvement: Resident Care Provided Care Provided: Adult Hospital Medicine
[2023-08-31 07:52] LABS: Basophils # (auto) 0.03 K/uL (0.00-0.20); Basophils % (auto) 0.2 %; Hematocrit (blood only) 48.6 % (37.0-47.0); Hemoglobin 15.5 g/dl (12.0-16.0); Immature Granulocytes # (auto) 0.15 K/uL (0.01-0.20); Immature Granulocytes % (auto) 0.8 %; Lymphocytes % (auto) 9.4 %; Mean Corpuscular Hemoglobin 25.9 pg (25.0-34.0); Mean Corpuscular Hgb Conc 31.9 g/dL (32.0-36.0); Mean Corpuscular Volume 81.1 fL (80.0-100.0); Mean Platelet Volume 9.4 fL (9.4-12.4); Monocytes # (auto) 0.51 K/uL (0.11-0.59); Monocytes % (auto) 2.8 %; Neutrophils # (auto) 15.64 K/uL (1.40-6.50); Neutrophils % (auto) 86.8 %; Platelet Count 280 K/uL (130-400); RDW Coefficient of Variation 17.7 % (11.5-14.5); RDW Standard Deviation 47.6 fL (36.4-46.3); Red Blood Count 5.99 M/uL (4.20-5.40); White Blood Count 18.03 K/ul (4.8-10.8)
[2023-08-31 08:35] LABS: BUN Creatinine Ratio 40.6 (10-20); Calcium 8.8 mg/dl (8.6-10.3); Creatinine Clr Calc Pharmacy 60.8 ml/min; Est GFR (African American) 69.1 ml/min; Est GFR (Non-African American) 59.6 ml/min; Magnesium 2.1 mg/dl (1.7-2.4)
[2023-08-31] MEDS: ALPRAZolam 0.5 MG TABLET PO SCH ×2 (08:35→13:46)
[2023-08-31] MEDS: LANTUS PER UNIT CHARGE SQ SCH (08:37)
[2023-08-31 08:56] LABS: Estimated Average Glucose 255 mg/dl; Hemoglobin A1C 10.5 % (4.5-5.6)
[2023-08-31] MEDS: CETIRIZINE HCL 10 MG TABLET PO ONE (13:46)
[2023-08-31] MEDS: FLUTICASONE PROPIONATE NA SPR 16 GM BTL SCH (13:46)
--- NOTE | 2023-08-31 13:53 | Pharmacy Report ---
Pharmacy Glycemic Short Note 2 - Date of Service August 31, 2023 - Glycemic Short BSG Results (Last 24 hours): 08/30/23 08/30/23 08/30/23 16:37 16:38 20:34 Glucose POC Glucose 366 H* 341 H* 161 H 08/31/23 08/31/23 08/31/23 01:58 07:03 07:04 Glucose POC Glucose 196 H 328 H* 294 H 08/31/23 08/31/23 07:19 11:27 Glucose 327 H* POC Glucose 235 H OUTPATIENT ANTIDIABETIC REGIMEN: * Lantus 60 units sq qAM * Novolog 10 units AC + SSI * ~90+ units of insulin per day (reflecting A1c 10.6% 08/17/23) ASSESSMENT: 08/30 * 139 units SQ insulin given over last 24 hrs while tolerating a diet * Solu-Medrol 20mg IV Q 8 hours continues * Majority of BSGs elevated above goal, however BSGs have been improving slowly with additional insulin adjustments * Fasting BSG elevated this AM with 60 units basal on board. Will up-titrate. * Post-pranidal BSGs remain elevated, will increase bolus insulin doses - new doses will be based upon anticipated daily insulin requirement of 140+ units/day with current stressors PLAN FOR INPATIENT GLYCEMIC CONTROL: * Hold outpatient oral diabetes medications * Basal insulin * Lantus 70 units SQ qAM * Bolus insulin * NovoLog per scale ACHS or Q6hrs while NPO + 0200 * Goal Range: Low 120 mg/dL - High 160 mg/dL * Correction Factor: 12 mg/dL/unit * Nutritional / Prandial insulin per carb ratio of 1 unit per 4 grams CHO consumed. * Reassess insulin needs with each step down in steroid dose Also added a BSG check @ 0200 w/ coverage. We will continue to monitor closely and make adjustments prn.
--- NOTE | 2023-08-31 17:42 | Billing Data ---
Date of Service August 31, 2023 Coding Level of Care Code 21783 SUB INP/OBS CARE
[2023-09-01 07:13] LABS: Basophils # (auto) 0.02 K/uL (0.00-0.20); Basophils % (auto) 0.1 %; Hematocrit (blood only) 46.7 % (37.0-47.0); Hemoglobin 14.9 g/dl (12.0-16.0); Lymphocytes # (auto) 1.76 K/uL (1.20-3.40); Lymphocytes % (auto) 11.5 %; Mean Corpuscular Hemoglobin 25.6 pg (25.0-34.0); Mean Corpuscular Hgb Conc 31.9 g/dL (32.0-36.0); Mean Corpuscular Volume 80.2 fL (80.0-100.0); Monocytes # (auto) 0.43 K/uL (0.11-0.59); Monocytes % (auto) 2.8 %; Neutrophils # (auto) 12.75 K/uL (1.40-6.50); Neutrophils % (auto) 83.6 %; Platelet Count 272 K/uL (130-400); RDW Coefficient of Variation 17.2 % (11.5-14.5); RDW Standard Deviation 46.4 fL (36.4-46.3); Red Blood Count 5.82 M/uL (4.20-5.40); White Blood Count 15.26 K/ul (4.8-10.8)
[2023-09-01 07:47] LABS: Albumin Level 3.8 gm/dl (3.4-5.0); BUN Creatinine Ratio 48.3 (10-20); Calcium 8.7 mg/dl (8.6-10.3); Est GFR (African American) 80.5 ml/min; Est GFR (Non-African American) 69.5 ml/min; Magnesium 1.9 mg/dl (1.7-2.4); Potassium 3.2 mmol/L (3.5-5.1)
--- NOTE | 2023-09-01 07:48 | Hospitalist Progress Note ---
Date of Service September 01, 2023 Assessment & Plan (1) Moderate persistent asthma: (2) History of pulmonary embolism: (3) Opiate dependence: (4) Obesity hypoventilation syndrome: (5) Diabetes: (6) Chronic anticoagulation: (7) Tobacco abuse: Plan Acute on chronic respiratory failure with hypoxia/COPD exacerbation/obesity hypoventilation syndrome/ongoing tobacco abuse/history of PE Solu-Medrol 20 mg IV every 8 hours - Will transition to PO prednisone tomorrow a m Pulmicort Respules 0.5 mg inhaled twice daily Xopenex nebs Azithromycin 500 mg IV daily Guaifenesin extended release 1200 mg p.o. twice daily Bio fire positive for enterovirus/rhinovirus Tobacco cessation counseling Continue Trelegy Ellipta Flonase and Zyrtec added #Diabetes mellitus Glucose 314 on admission, continues to be markedly elevated in setting of steroid use Placed on low-dose Solu-Medrol 20 mg IV every 8 hours, and add Pulmicort Respules 0.5 mg inhaled twice daily to minimize glucose gel Continue glargine 60 units subq every morning Placed on Accu-Cheks with NovoLog SSI Carb ratio/correction factor tightened A1c 08/17/23 10.6; f/u recheck #HFpEF Overall looks dry Hold Bumex, metolazone #Hypokalemia/hypomagnesemia Potassium 3.0 and magnesium 1.7 on admission replete as indicated BMP am #Opiate dependence Continue Suboxone #Constipation Bowel regimen Encourage hydration #History of PE Continue Lovenox therapeutic dosing DVT: Lovenox Diet: DM2 Dispo: MEd surg Admission and Anticipated Discharge Date Admission Date: August 30, 2023 Results & Data Results & Data Vital Signs (Past 12 Hours) Vital Signs Temp Pulse Resp BP Pulse Ox Pulse Ox O2 Del Method 09/01/23 07:34 36.8 C 95 H 18 129/84 97 Room Air 09/01/23 07:20 99 H 16 97 Room Air 09/01/23 00:41 90 94 Room Air 08/31/23 21:50 Room Air 08/31/23 21:50 93 08/31/23 21:50 37.1 C 106 H 20 132/77 93 Room Air 08/31/23 20:10 98 H 20 93 Room Air 08/31/23 20:00 Room Air 08/31/23 19:55 37.0 C 97 H 20 121/72 92 Room Air O2 Del Method 09/01/23 07:34 09/01/23 07:20 09/01/23 00:41 08/31/23 21:50 08/31/23 21:50 Room Air 08/31/23 21:50 08/31/23 20:10 08/31/23 20:00 08/31/23 19:55
--- NOTE | 2023-09-01 07:51 | Discharge Summary ---
Date of Service September 01, 2023 Admission HPI Per Admitting Provider The patient is a 63-year-old female with a past medical history including severe COPD, chronic tobacco use, opiate dependence, HFpEF, obesity hypoventilation syndrome, diabetes mellitus, chronic anticoagulation, and hypokalemia. She presents to the emergency department with symptoms similar to her previous 5 admissions this year: 05/07-05/09/2023, 05/31-06/04/2023, 06/29-07/03/2023, 07/27-, and 08/15-08/18/2023. She continues to smoke, and continues to be physically and active. She does report taking her inhalers and other medications as directed. BioFire testing in the ED is positive for enterovirus/rhinovirus. Admission Exam Per Admitting Provider The patient is awake, alert and oriented 3, well developed and well nourished, normocephalic and atraumatic, lying in bed and in mild respiratory distress. HEENT--PERRL, EOMI, mucous membranes and oropharynx dry. Neck--supple. No JVD. No bruits. Thyroid normal, trachea midline, no adenopathy . Heart--normal S1 and S2. No murmurs, rubs or gallops. Lungs--decreased breath sounds throughout. Mild respiratory distress, no accessory muscle use. Abdomen--normal bowel sounds and soft. Nontender. Nondistended. Obese Extremities--No edema. Dermatologic--normal skin turgor, normal color, no abnormal lymph nodes, no rash. Neurologic--cranial nerves II through XII grossly intact. Rheumatologic--normal range of motion. Psychiatric--normal affect. Principal Diagnosis COPD exacerbation Discharge Exam Constitutional WD/WN, vitals as above Respiratory normal respiratory effort; no respiratory distress and no labored breathing bilateral upper faint wheezing. Cardiovascular RRR, no murmur, no edema Gastrointestinal (Abdomen) normal bowel sounds, soft, nontender, no hepatosplenomegaly Skin no rashes, warm and dry Discharge Data Allergies Allergy/AdvReac Type Severity Reaction Status Date / Time codeine Allergy Severe Anaphylaxis Verified 08/16/23 17:34 Iodinated Contrast Media Allergy Severe Anaphylaxis Verified 08/16/23 17:34 shellfish derived Allergy Severe Anaphylaxis Verified 08/16/23 17:34 tramadol Allergy Intermediate ITCHINESS Verified 08/16/23 17:34 iohexol Allergy Unknown CAN'T Verified 08/16/23 17:34 REMEMBER diphenhydramine AdvReac Severe Anxiety Verified 08/16/23 17:34 [From Benadryl] montelukast [From Singulair] AdvReac Intermediate Anxiety Verified 08/16/23 17:34 promethazine AdvReac Intermediate Anxiety Verified 08/16/23 17:34 Consultations 08/30/23 02:44 ED Decision to Admit Stat Ordered Studies Chest X-Ray 08/29/23 23:58 XR chest 1V portable HISTORY: Dyspnea COMPARISON: Chest 08/16/2023. FINDINGS: The lungs are clear. Cardiac silhouette is normal in size. No pleural effusions. No pneumothorax. Stable deformity within the right anterior fourth rib again noted. IMPRESSION: No significant change compared to the prior study. No acute process. ACT 112: Negative or not required by law. Electronically signed by: Chester Salas M.D. 08/30/2023 7:50 AM Diabetes Follow up Diabetes Follow-up Needed for HgbA1c >9% Hospital Course (1) Moderate persistent asthma: (2) History of pulmonary embolism: (3) Opiate dependence: (4) Obesity hypoventilation syndrome: (5) Diabetes: (6) Chronic anticoagulation: (7) Tobacco abuse: Plan Acute on chronic respiratory failure with hypoxia/COPD exacerbation/obesity hypoventilation syndrome/ongoing tobacco abuse/history of PE - s/p Solu-Medrol 20 mg IV every 8 hours - Will transition to PO prednisone - s/p Azithromycin 500 mg IV daily (today of 3 days) - Guaifenesin extended release 1200 mg p.o. twice daily Bio fire positive for enterovirus/rhinovirus Tobacco cessation counseling Continue Trelegy Ellipta, Levalbuterol, Atrovent New medications: Flonase and Zyrtec added - Exacerbation likely from viral illness and high pollen season Continue Prednisone louise #Diabetes mellitus Glucose 314 on admission, continues to be markedly elevated in setting of steroid use Continue glargine 60 units subq every morning Carb ratio/correction factor tightened while admitted A1c 08/17/23 10.6; f/u recheck Recommended closed follow up with PCP to continue monitoring for hyperglycemia secondary to steroids #HFpEF Look euvolemic Continue Bumex, metolazone #Hypokalemia/hypomagnesemia Potassium 3.0 and magnesium 1.7 on admission, replaced while admitted Continue Potassium supplement BID Recommended BMP and Magnesium within a week #Opiate dependence Continue Suboxone #Constipation Bowel regimen Encourage hydration #History of PE Continue Lovenox therapeutic dosing Total Time Total Time Spent Total Time Spent (In Minutes): <30 Discharge Plan Discharge Items Patient Disposition: Home - Self-Care Reason For Visit: ACUTE ON CHRONIC RESP FAILURE W/ HYPOXIA, COPD EX Discharge Diagnosis: COPD exarcerbation Activity: Per Instructions section Non-emergency contact: Primary Care Provider Call non-emergency contact if: you have any medication questions and your symptoms worsen Follow-up/Referrals: Radha Barboza PA-C [Primary Care Provider] - Diet: Carb Consistent or DM2 and Heart Healthy Addtl Attending Provider Instructions: Janae you were admitted due to INSPECTOR exacerbation. This seem to be secondary to virus infection. You will be discharge home with Prednisone louise We sent to you pharmacy Prednisone 10 mg: Tomorrow Take 60 mg (6 tablets) Then take 50 mg (5 tablets) for 2 days Then take 40 mg (4 tablets) for 2 days Then take 30 mg (3 tablets) for 2 days Then take 20 mg ( 2 tablets ) for 2 days Then take 10 mg (1 tablets ) for 2 days We add 2 new medications to use through pollen season: Flonase Twice a day and Zyrtec (Cetirizine) 5 mg daily Follow-up appointments: Make a follow-up appointment with your PCP within the next week. It is very important that you follow up with them shortly after discharge from the hospital. Keep all your follow-up appointments as already scheduled. If you cannot make an appointment, notify your provider. Medications: Your medication list has been reviewed and reconciled upon discharge to ensure accuracy and continuity of care. An updated list of all your medications is included with your hospital discharge paperwork. Please review this list closely, and make note of any changes. Take your medications as instructed; do not skip a dose of your medicines. Make sure all of your doctors know every medicine you are taking (including [id number] medicines, vitamins, and supplements). Call your primary care provider before taking any new medicines (including [id number]-ehrtpzy medicines, vitamins, and supplements), because some of these may interact with your current medications, or may make your symptoms worse. Tell your primary care provider if you cannot afford your medications. CALL 911 OR GO TO THE EMERGENCY DEPARTMENT if you experience any of the following: Sudden, severe abdominal pain or nausea/vomiting Severe chest pain, or chest pain that radiates (moves) to your jaw or arm Sudden, severe shortness of breath or difficulty breathing Thank you for allowing us to participate in your care. Pending Studies at Discharge: No Stand-Alone Forms: My [facility], Smoking Cessation Medications and DC Order Prescriptions: New prednisone 10 mg tablet 10 mg PO DIRECTED Qty: 36 0RF Rx Instructions: see taper instructions Take 60 mg tomorrow (6 tablets) Then take 50 mg (5 tablets) for 2 days Then take 40 mg (4 tablets) for 2 days Then take 30 mg (3 tablets) for 2 days Then take 20 mg ( 2 tablets ) for 2 days Then take 10 mg (1 tablets ) for 2 days fluticasone propionate [Flonase Allergy Relief] 50 mcg/actuation spray,suspension 1 spray intranasal BID Qty: 16 0RF Rx Instructions: administer into each nostril cetirizine 5 mg tablet 5 mg PO DAILY PRN (Reason: allergy symptoms) Qty: 30 0RF Continued ondansetron HCl 4 mg Tablet 4 mg PO Q8H PRN (Reason: NAUSEA/VOMITING) quetiapine 200 mg tablet 200 mg PO HS nystatin 100,000 unit/gram Powder 1 applic TOPICAL BID PRN (Reason: UNDER BREASTS NEEDED.) buprenorphine-naloxone 8-2 mg film 1 film sublingual BID insulin glargine 100 unit/mL (3 mL) insulin pen 60 unit SUBCUT QAM bumetanide 2 mg tablet 4 mg PO BID Rx Instructions: morning and lunch enoxaparin 150 mg/mL syringe 150 mg subcut QAM insulin aspart U-100 [Novolog FlexPen U-100 Insulin] 100 unit/mL (3 mL) insulin pen 10 unit SUBCUT AC Rx Instructions: Plus sliding scale Trelegy Ellipta 200-62.5-25 mcg blister with device 1 ea INHALATION QAM levalbuterol tartrate 45 mcg/actuation HFA aerosol inhaler 2 puff INHALATION Q4 PRN (Reason: WHEEZE) levalbuterol HCl 1.25 mg/3 mL solution for nebulization 1.25 mg INHALATION TID PRN (Reason: Shortness Of Breath Or Wheezing) ipratropium bromide 0.02 % solution 3 ml continuous nebulization QID metolazone 5 mg tablet 5 mg PO [id number] Rx Instructions: 5 mg orally on Mondays, Wednesdays, and Fridays alprazolam 0.5 mg tablet 0.5 mg PO TID Qty: 14 0RF Rx Instructions: pt requesting to take same time as suboxone albuterol sulfate 90 mcg/actuation HFA aerosol inhaler 2 puff INHALATION UD PRN (Reason: Shortness Of Breath Or Wheezing) Trelegy Ellipta 200-62.5-25 mcg blister with device 1 inh INHALATION DAILY prednisone 10 mg tablet 0 mg PO DIRECTED PRN (Reason: flare ups) Taper: Taper, Blank 40 mg DAILY for 1 Day 20 mg DAILY for 2 Days 10 mg DAILY for 1 Day 5 mg DAILY for 2 Days Rx Instructions: see taper instructions polyethylene glycol 3350 [Miralax] 17 gram Powder In Packet 17 g PO BID Qty: 60 0RF Rx Instructions: OTC docusate sodium 100 mg Capsule 100 mg PO BID Qty: 60 0RF guaifenesin [Mucinex] 600 mg Tablet Extended Release 12hr 600 mg PO Q12 Qty: 60 0RF Rx Instructions: OTC potassium chloride 20 mEq Tablet,Er Particles/Crystals 40 meq PO BID Qty: 120 0RF Discharge Orders: Discharge Order (Routine); Ordered 09/01/23 Ordered By: Chinyere Barbour/Other Patient Handouts: Asthma and COPD, High Blood Sugar (Hyperglycemia), Managing Type 2 Diabetes, Asthma COPD Trigger Control Admission Data Admit Date/Time: 08/30/23 03:16 Attending Provider: Robby Dickinson Admit Provider: Casey Aguilar Primary Care Provider: Radha Barboza Other Providers: Casey Aguilar Other Interventions: Discharge Summary Assessment (RN) Last Done: 09/01/23 09:54 Supervising Physician Co-Signing Physician Notes I personally examined the patient and verified all rosario points of history and exam, discussed case, and agree with decision making with Dr Jun Schulz feels better. Feels up to going home. Extensive discussions. Vitals noted, in general she is awake and alert pleasant no distress. HEENT normocephalic atraumatic mucous membranes moist. Breathing unlabored no accessory muscle use no conversational dyspnea good effort. Skin without rashes pallor or icterus. Neuro without focal deficits. Acute moderate persistent asthma exacerbation - -Exacerbation likely from viral illness/also in high pollen count season. Safe/stable for home. Medications as above/per med rec HFpEF - Appears euvolemic Hx of PE - continue Lovenox DM - outpatient follow-up anxietyextensive discussions. Resident Activity Tracking Resident Involvement: Resident Care Provided Care Provided: Adult Hospital Medicine
[2023-09-01] MEDS: predniSONE 20 MG TAB PO SCH (08:11)
[2023-09-01] MEDS: LANTUS PER UNIT CHARGE SQ SCH (08:24)
--- NOTE | 2023-09-01 19:59 | Billing Data ---
Date of Service September 01, 2023 Coding Level of Care Code 59128 IN/OBS DISCH 30 MIN/LESS
== END 2023-09-01 10:34 | disposition home or self-care (01) | DRG 190 ==
LOC: ED 23:31 → SUATTDRO 08-30 03:16 → EDINP 08-30 03:16 → 2E 08-30 05:19 → 3E 08-31 21:53

== ENCOUNTER 2023-09-11 09:29 | Inpatient (IN) ==
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
[2023-09-11] MEDS: ALBUT/IPRATROP 3MG/0.5MG NEB 3 ML VIAL NEB STA ×3 (09:54→12:03)
[2023-09-11] MEDS: LORazepam 1 MG/1 ML SYR ED Inj Use IV STA (10:09)
[2023-09-11] MEDS: methylPREDNISolone 125 MG/2 ML VIAL IV STA (10:10)
[2023-09-11] MEDS: MAGNESIUM SULFATE / D5W 1 GM/100 ML BAG IV STA (10:13)
[2023-09-11 10:21] LABS: Base Excess VBG 12.7 mEq/L; HCO3 VBG 39 mmol/L; Oxygen Saturation VBG < 60.0 %; PCO2 VBG 58 mmHg (38-50); PO2 VBG 26 mmHg; pH VBG 7.44 (7.36-7.41)
[2023-09-11 10:31] LABS: Basophils # (auto) 0.04 K/uL (0.00-0.20); Basophils % (auto) 0.3 %; Eosinophils # (auto) 0.08 K/uL (0.00-0.50); Eosinophils % (auto) 0.5 %; Hematocrit (blood only) 49.2 % (37.0-47.0); Hemoglobin 16.2 g/dl (12.0-16.0); Immature Granulocytes # (auto) 0.13 K/uL (0.01-0.20); Immature Granulocytes % (auto) 0.9 %; Lymphocytes # (auto) 2.49 K/uL (1.20-3.40); Lymphocytes % (auto) 16.5 %; Mean Corpuscular Hemoglobin 26.6 pg (25.0-34.0); Mean Corpuscular Hgb Conc 32.9 g/dL (32.0-36.0); Mean Corpuscular Volume 80.8 fL (80.0-100.0); Mean Platelet Volume 9.8 fL (9.4-12.4); Monocytes # (auto) 0.53 K/uL (0.11-0.59); Monocytes % (auto) 3.5 %; Neutrophils # (auto) 11.79 K/uL (1.40-6.50); Neutrophils % (auto) 78.3 %; Platelet Count 341 K/uL (130-400); RDW Coefficient of Variation 17.8 % (11.5-14.5); RDW Standard Deviation 47.4 fL (36.4-46.3); Red Blood Count 6.09 M/uL (4.20-5.40); White Blood Count 15.06 K/ul (4.8-10.8)
--- NOTE | 2023-09-11 10:33 | XRay Report ---
XR chest 1V portable HISTORY: 63 years-old Female sob acute shortness of breath COMPARISON: 08/30/2023 TECHNIQUE: AP view of the chest FINDINGS: Cardiac silhouette is enlarged. Mild chronic interstitial coarsening. No pneumothorax, pleural effusi on or airspace consolidation. The bones appear intact. IMPRESSION: No acute process. ACT 112: Negative or not required by law. The above report was generated using voice recognition software. It may contain grammatical, syntax o r spelling errors. Electronically signed by: Avi Leon M.D. 09/11/2023 10:32 AM
[2023-09-11 10:35] LABS: Albumin Globulin Ratio 1.4 (0.9-2); Albumin Level 4.3 gm/dl (3.4-5.0); BUN Creatinine Ratio 27.3 (10-20); Bilirubin,Total 0.4 mg/dl (0.2-1.0); Calcium 9.8 mg/dl (8.6-10.3); Creatinine Clr Calc Pharmacy 69.4 ml/min; Est GFR (African American) 81.6 ml/min; Est GFR (Non-African American) 70.4 ml/min; Globulin 3.1 gm/dl (2.5-4.0); Magnesium 1.7 mg/dl (1.7-2.4); Potassium 3.4 mmol/L (3.5-5.1); Total Protein 7.4 gm/dl (6.0-8.3)
[2023-09-11 10:41] LABS: Troponin I High Sensitivity 29.5 pg/ml (0-14)
[2023-09-11 10:51] LABS: INR 1.1 (0.9-1.1); Prothrombin Time 11.5 Seconds (9.0-12.0); Thyroid Stimulating Hormone 1.423 uIu/ml (0.300-4.500)
[2023-09-11] MEDS: LEVALBUTEROL 1.25 MG/3 ML NEB NEB STA (12:05)
[2023-09-11] MEDS ORDERED: GLUCAGON FOR INJ 1 MG VIAL SQ PRN (14:20)
[2023-09-11] MEDS ORDERED: PHARMACY GLYCEMIC MGMT CONSULT PRN (14:20)
[2023-09-11] MEDS ORDERED: GLUCOSE 40% GEL 15 GM TUBE PO PRN (14:20)
[2023-09-11] MEDS ORDERED: GLUCOSE 10 TAB/TUBE PO PRN (14:20)
[2023-09-11] MEDS ORDERED: CARBOHYDRATES FOR HYPOGLYCEMIA PO PRN (14:20)
[2023-09-11] MEDS ORDERED: DEXTROSE 50% 50 ML SYRINGE IV PRN (14:20)
--- NOTE | 2023-09-11 14:51 | History & Physical Report ---
Date of Service September 11, 2023 Assessment & Plan (1) Acute exacerbation of chronic obstructive pulmonary disease: Plan: -Admit to med/tele on pulse oximetry -Currently stable on 2L NC but still with increased work of breathing and wheezing compared to baseline -CXR is negative for focal consolidations or fluid -Low suspicion for PE at this time as she has been compliant with Lovenox, has been hemodynamically stable, and is without pleuritic chest pain -Will continue with the following: >Levalbuterol/Ipratropium nebs QIDr >Budesonide/formoterol nebs BIDr >Q12h doxycycline >40 mg IV solud-medrol daily >BID Guaifenesin >Incentive spirometry, flutter therapy, prn O2 to keep SpO2 between 89-92% -Continue to stress smoking cessation -SQ lovenox for DVT PPX -HH/DMII diet -AM CBC, CMP, mag, PT/INR (2) Opiate dependence: Plan: -Continue decreased Suboxone dose: -8 mg SL in the am and 4 mg SL in the afternoon -Continue to encourage further weaning of Suboxone (3) Heart failure with preserved ejection fraction: Plan: -Euvolemic today -Has been much more stable since starting metolazone -Continue BID Bumex with metolazone 3 x weekly -Low sodium diet ordered (4) Elevated troponin: Plan: -Initial high sen trop elevated at 29 -No chest pain or ECG changes -Likely due to demand -Will repeat a 2 hour high sen trop now -Continue to monitor on tele (5) Diabetes: Plan: -Monitor BSG ACHS, goal is 110-160 -Continue 60 units SQ lantus daily -CF 50 and CR 15 ACHS -Pharmacy glycemic consult placed (6) Tobacco abuse: Plan: -Continue to stress cessation Plan The patient was discussed with Dr. Linton at the time of the admission History of Present Illness Chief Complaint: SOB Primary Care Provider: Radha Barboza Janae Monzon is 63yo female with multiple medical comorbidities including COPD on supplemental O2 2L NC HS, ongoing tobacco use causing recurrent COPD exacerbations, HFpEF, DM, prior PE on Lovenox, obesity hypoventilation syndrome, opioid dependence (on Suboxone), DMII, and anxiety who presented to the [facility] ED on 09/11/23 due to acute on chronic SOB which began at approximately 0300 today. Shewas noted to be hypoxic at 87% on RA (despite being chronically oxygen dependent), respirations of 27, but otherwise stable. Labs were significant for a leukocytosis of 15 with neutrophil predominance of 11, CBC consistent with hemoconcentration, VBG pH of 7.44 with pCO2 of 58, and pO2 WNL, chloride of 92, potassium of 3.4, initial high sen trop of 29. CXR was read as negative for acute findings. Prior to admission the patient was given 2 albuterol nebulizer treatments, a levalbuterol treatment, 0.5 mg IV Ativan, 1gm Iv mag-sulfate, and 60 mg Iv methylprednisolone. At the time of the exam the patient was sitting in bed in no acute distress. States that she started to develop worsening SOB at the beginning of the week. Symptoms progressed to the point that she could not speak in complete sentences this am. She called her PCP who recommended she come to the ED. Still smoking "a few" cigarettes daily, knows she needs to quit. Has not been able to smoke the past 2 days due to her symptoms. Has been working on weaning down her Suboxone dose. She is currently taking 8 mg SL in the am and 4 mg SL in the afternoon this week. Her symptoms have improved slightly since arrival. She is a full code. Denies recent fever, chills, chest pain, hemoptysis, and pain, nausea, vomiting, diarrhea, dysuria, hematuria, melena, LE swelling and recent trauma. Please refer to Dr. Linton's attestation for any changes to the treatment plan Allergies Allergy/AdvReac Type Severity Reaction Status Date / Time codeine Allergy Severe Anaphylaxis Verified 09/11/23 16:21 Iodinated Contrast Media Allergy Severe Anaphylaxis Verified 09/11/23 16:21 shellfish derived Allergy Severe Anaphylaxis Verified 09/11/23 16:21 tramadol Allergy Intermediate ITCHINESS Verified 09/11/23 16:21 iohexol Allergy Unknown CAN'T Verified 09/11/23 16:21 REMEMBER diphenhydramine AdvReac Severe Anxiety Verified 09/11/23 16:21 [From Benadryl] montelukast [From Singulair] AdvReac Intermediate Anxiety Verified 09/11/23 16:21 promethazine AdvReac Intermediate Anxiety Verified 09/11/23 16:21 Home Medications Medication Instructions Recorded Confirmed Type buprenorphine 8 mg-naloxone 2 mg 1 film sublingual QAM 05/14/22 09/11/23 History sublingual film nystatin 100,000 unit/gram topical 1 applic topical BID PRN UNDER 05/14/22 09/11/23 History powder BREASTS NEEDED. ondansetron HCl 4 mg tablet 4 mg PO Q8H PRN NAUSEA/VOMITING 05/14/22 09/11/23 History quetiapine 200 mg tablet 200 mg PO HS 05/14/22 09/11/23 History insulin glargine 100 unit/mL (3 60 unit subcut QAM 06/21/22 09/11/23 History mL) subcutaneous pen ipratropium bromide 0.02 % 3 ml continuous nebulization QID 01/16/23 09/11/23 History solution for inhalation levalbuterol HCl 1.25 mg/3 mL 1.25 mg inhalation TID PRN 01/16/23 09/11/23 History solution for nebulization Shortness Of Breath Or Wheezing bumetanide 2 mg tablet 4 mg PO BID 03/02/23 09/11/23 History enoxaparin 150 mg/mL subcutaneous 150 mg subcut QAM 05/07/23 09/11/23 History syringe fluticasone fur. 200 mcg-umeclid 1 ea inhalation QAM 05/07/23 09/11/23 History 62.5 mcg-vilant 25 mcg inhalat.powder (Trelegy Ellipta) insulin aspart U-100 100 unit/mL 10 unit subcut AC 05/07/23 09/11/23 History (3 mL) subcutaneous pen (Novolog FlexPen U-100 Insulin aspart) levalbuterol tartrate 45 2 puff inhalation Q4 PRN WHEEZE 05/07/23 09/11/23 History mcg/actuation aerosol inhaler metolazone 5 mg tablet 5 mg PO 3XWK 07/28/23 09/11/23 History alprazolam 0.5 mg tablet 0.5 mg PO TID #14 tabs 08/02/23 09/11/23 Rx prednisone 10 mg tablet 0 mg PO DIRECTED PRN flare ups 08/16/23 09/11/23 History potassium chloride 20 mEq 40 meq (2 x 20 mEq) PO BID #120 08/18/23 09/11/23 Rx tablet,extended release(part/cryst) tabs albuterol sulfate 90 mcg/actuation 2 puff inhalation UD PRN Shortness 08/30/23 09/11/23 History aerosol inhaler Of Breath Or Wheezing buprenorphine 8 mg-naloxone 2 mg 0.5 film sublingual QPM 09/11/23 09/11/23 History sublingual film fluticasone propionate 50 1 spray intranasal BID PRN nasal 09/11/23 09/11/23 History mcg/actuation nasal congestion spray,suspension (Flonase Allergy Relief) guaifenesin 600 mg tablet, 600 mg PO Q12 PRN Congestion 09/11/23 09/11/23 History extended release 12 hr (Mucinex) Past Med/Surg History Problem List (Updated 09/11/23 @ 17:54 by Zoila Dunlap DO) Elevated troponin (Acute) Hypoxia (Acute) Moderate persistent asthma Constipation History of pulmonary embolism Acute exacerbation of chronic obstructive pulmonary disease (Acute) Heart failure with preserved ejection fraction Opiate dependence Obesity hypoventilation syndrome Diabetes Chronic anticoagulation Tobacco abuse Acute bronchitis Pulmonary vascular congestion Hypokalemia Acute on chronic respiratory failure with hypoxia (Acute) COPD exacerbation (Acute) Right knee pain Nasal fracture Rib fractures (Acute) COPD (chronic obstructive pulmonary disease) (Acute) Dyspnea (Acute) Medical History Acute heart failure with preserved ejection fraction (HFpEF) Asthma Multiple myeloma Surgical History No pertinent past surgical history Social History Smoking Status: Current every day smoker Tobacco Type: Cigarettes Cigarettes Per Day: 1/2 pack per day; Second Hand Exposure: Yes; Do You Dip or Chew Tobacco: No; Tobacco Cessation Education Requested by Patient: No Hx Alcohol Use: No Hx Substance Use: Yes Last Used Substance: Unknown Preferred Language: Indonesian Communication Ability: Effective Donor Relations Manager Required: No Beliefs That Will Affect Care: None Current Living Situation: Family Current Living Situation Comment: lives with sister temporarily Feels Safe at Home: Yes Safety Concerns: Feels Safe At This Time Assistive Devices: Oxygen - at Night Physical Exam Physical Exam: Physical Exam: General: In no acute distress, stated age, chronically ill-appearing HEENT: Normocephalic, atraumatic, no scleral icterus, pupils around round, symmetrical, and reactive to light, no JVD, moist mucus membranes, trachea midline, no thyromegaly Chest/Pulm: No respiratory distress, symmetrical chest expansion, scattered expiratory wheezing throughout Cardiac: RRR, no murmurs noted Abdomen: Negative for ascites and bruising, normoactive bowel sounds, soft, non-tender to palpation throughout Musculoskeletal: Symmetrical and without signs of acute trauma, upper and lower extremities with full ROM, no atrophy, spasticity, or flaccidity Extremities: Radial, dorsalis pedis, and posterior tibial pulses are intact and symmetrical, no edema noted in the BL LE's Skin: Warm, dry, no rashes , lesions, or scars noted Neuro: Alert and oriented to person, place, month, year, and president, no focal defects, no tremors noted Psych: No acute distress, calm and cooperative during the exam Results & Data Results & Data Vital Signs (Past 12 Hours) Vital Signs Temp Pulse Pulse Resp BP BP Pulse Ox 09/11/23 13:48 96 H 09/11/23 13:00 96 H 20 102/65 94 09/11/23 11:15 93 09/11/23 11:15 87 L 09/11/23 09:54 92 H 26 H 93 09/11/23 09:50 94 H 09/11/23 09:34 36.3 C L 98 H 20 126/79 98 O2 Del Method O2 Flow Rate 09/11/23 13:48 09/11/23 13:00 Nasal Cannula 1 09/11/23 11:15 Nasal Cannula 2 09/11/23 11:15 Room Air 09/11/23 09:54 Room Air 09/11/23 09:50 09/11/23 09:34 Room Air Laboratory Results Abnormal lab results 09/11/23 09/11/23 Range/Units 09:55 10:13 WBC 15.06 H (4.8-10.8) K/ul RBC 6.09 H (4.20-5.40) M/uL Hgb 16.2 H (12.0-16.0) g/dl Hct 49.2 H (37.0-47.0) % RDW Std Deviation 47.4 H (36.4-46.3) fL RDW Coeff of Malick 17.8 H (11.5-14.5) % Neut # (Auto) 11.79 H (1.40-6.50) K/uL VBG pH 7.44 H (7.36-7.41) VBG pCO2 58 H (38-50) mmHg Potassium 3.4 L (3.5-5.1) mmol/L Chloride 92 L (98-107) mmol/L Carbon Dioxide 36 H (21-32) mmol/L BUN 24 H (6-23) mg/dl BUN/Creatinine Ratio 27.3 H (10-20) Glucose 119 H (70-99(Fasting)) mg/dl Troponin I High Sens 29.5 H (0-14) pg/ml Diagnostic Findings Chest X-Ray 09/11/23 09:44 XR chest 1V portable HISTORY: 63 years-old Female sob acute shortness of breath COMPARISON: 08/30/2023 TECHNIQUE: AP view of the chest FINDINGS: Cardiac silhouette is enlarged. Mild chronic interstitial coarsening. No pneumothorax, pleural effusion or airspace consolidation. The bones appear intact. IMPRESSION: No acute process. ACT 112: Negative or not required by law. The above report was generated using voice recognition software. It may contain grammatical, syntax or spelling errors. Electronically signed by: Avi Leon M.D. 09/11/2023 10:32 AM ECG Additional Comments: Normal sinus rhythm Inferior infarct (cited on or before 16-AUG-2023) Anterior infarct (cited on or before 28-JUL-2023) Abnormal ECG When compared with ECG of 29-AUG-2023 23:42, Questionable change in initial forces of Anterior leads Code Status & VTE Plan Code Status Full code VTE Prophylaxis Plan VTE Prophylaxis will be ordered: Yes Supervising Physician Co-Signing Physician Notes I personally saw and examined the patient. I verified all rosario points and agree with Amari Macias PA-C with the following exceptions and/or additions: 63 year old female with severe COPD pressents to the ER with shortness of breath similar to prior exacerbation with associated chest heaviness. Continues to smoke but also feels her symptoms exacerbate seasonally and also due to living at her sister's with a cat. O/E HS RRR, no murmurs, no respiratory distress, expiraotry wheezing, Abdo SNT A/P COPD exacerbation - Solu-medrol 40mg IV daily, duonebs, formoterol/budesonide NEBs BID, doxycycline 100mg BID PG Care Time/CCT Total # of Minutes Spent Total Time Spent with Patient: Total time spent is greater than 50% in coordination of care (as documented) at patient's floor/unit and/or counseling patient: Coding [place] [address] INT INP/OBS CARE 2/55MIN Patient Type Established Medical Decision Making Moderate Complexity Diagnoses Acute exacerbation of chronic obstructive pulmonary disease J44.1 Opiate dependence F11.20 Heart failure with preserved ejection fraction I50.30 Elevated troponin R79.89 Diabetes E11.9 Tobacco abuse Z72.0
--- NOTE | 2023-09-11 15:22 | Electrocardiogram Report ---
Test Reason : Blood Pressure : / mmHG Vent. Rate : 096 BPM Atrial Rate : 096 BPM P-R Int : 144 ms QRS Dur : 086 ms QT Int : 348 ms P-R-T Axes : 019 015 052 degrees QTc Int : 439 ms Normal sinus rhythm possible Inferior infarct (cited on or before 16-AUG-2023) Poor R wave progression, consider anterior IA vs. lead placement vs. LVH Abnormal ECG Confirmed by Nelson Kenny ([id number]) on 09/11/2023 3:22:14 PM Referred By: REFERRED SELF Confirmed By:Pb Kenny
[2023-09-11] MEDS: IPRATROPIUM BROMIDE NEB SOLN 0.02% 0.5MG/2.5ML VIAL NEB SCH (15:34)
[2023-09-11] MEDS: DOXYCYCLINE HYCLATE 100 MG in DEXTROSE 5% MINI-B 100 ML IV STA (15:34)
[2023-09-11] MEDS: ALPRAZolam 0.5 MG TABLET PO STA (15:50)
[2023-09-11] MEDS: INSULIN ASPART PER UNIT CHARGE SC SCH (16:38)
[2023-09-11] MEDS ORDERED: ALBUT/IPRATROP 3MG/0.5MG NEB 3 ML VIAL NEB SCH (19:00)
[2023-09-11] MEDS: BUDESONIDE 0.5 MG/2 ML VIAL (PULMICORT) NEB SCH (19:55)
[2023-09-11] MEDS: FORMOTEROL 20 MCG/2 ML VIAL NEB SCH (19:56)
[2023-09-11] MEDS: LEVALBUTEROL 1.25 MG/3 ML NEB NEB SCH (19:57)
[2023-09-11] MEDS ORDERED: ACETAMINOPHEN 325 MG TAB PO PRN (21:06)
[2023-09-11] MEDS ORDERED: guaiFENesin 600 MG TABCR PO PRN (21:46)
[2023-09-11] MEDS: LANTUS PER UNIT CHARGE SC ONE (22:30)
[2023-09-11] MEDS: ALPRAZolam 0.5 MG TABLET PO SCH (22:31)
[2023-09-11] MEDS: guaiFENesin 600 MG TABCR PO SCH (22:36)
[2023-09-11] MEDS: QUEtiapine FUMARATE 200 MG TAB PO SCH (22:51)
[2023-09-12] MEDS: INSULIN ASPART PER UNIT CHARGE SC SCH (01:05)
[2023-09-12] MEDS: DOXYCYCLINE HYCLATE 100 MG in DEXTROSE 5% MINI-B 100 ML IV SCH (03:37)
[2023-09-12 06:27] LABS: Basophils # (auto) 0.04 K/uL (0.00-0.20); Basophils % (auto) 0.2 %; Eosinophils # (auto) 0.07 K/uL (0.00-0.50); Eosinophils % (auto) 0.4 %; Hematocrit (blood only) 42.6 % (37.0-47.0); Hemoglobin 14.1 g/dl (12.0-16.0); Immature Granulocytes # (auto) 0.33 K/uL (0.01-0.20); Immature Granulocytes % (auto) 1.8 %; Lymphocytes % (auto) 22.1 %; Mean Corpuscular Hemoglobin 26.7 pg (25.0-34.0); Mean Corpuscular Hgb Conc 33.1 g/dL (32.0-36.0); Mean Corpuscular Volume 80.7 fL (80.0-100.0); Mean Platelet Volume 9.3 fL (9.4-12.4); Monocytes # (auto) 1.11 K/uL (0.11-0.59); Monocytes % (auto) 6.1 %; Neutrophils # (auto) 12.59 K/uL (1.40-6.50); Neutrophils % (auto) 69.4 %; Platelet Count 262 K/uL (130-400); RDW Coefficient of Variation 16.5 % (11.5-14.5); RDW Standard Deviation 47.8 fL (36.4-46.3); Red Blood Count 5.28 M/uL (4.20-5.40); White Blood Count 18.14 K/ul (4.8-10.8)
[2023-09-12 06:42] LABS: BUN Creatinine Ratio 31.3 (10-20); Calcium 8.8 mg/dl (8.6-10.3); Creatinine Clr Calc Pharmacy 74.6 ml/min; Est GFR (African American) 87.6 ml/min; Est GFR (Non-African American) 75.6 ml/min; Magnesium 2.1 mg/dl (1.7-2.4); Potassium 2.7 mmol/L (3.5-5.1)
[2023-09-12 07:14] LABS: Prothrombin Time 10.9 Seconds (9.0-12.0)
[2023-09-12] MEDS: LANTUS PER UNIT CHARGE SQ SCH (08:57)
[2023-09-12] MEDS: POTASSIUM CHLORIDE CRTAB 20 MEQ TABCR PO SCH (08:57)
[2023-09-12] MEDS: BUPRENORPHINE/NALOXONE 8/2 MG TAB SL SCH ×2 (08:58→20:27)
[2023-09-12] MEDS: ENOXAPARIN 150 MG/ML SYR SQ SCH (08:59)
[2023-09-12] MEDS: BUMETANIDE 1 MG TAB PO SCH (08:59)
[2023-09-12] MEDS ORDERED: methylPREDNISolone 125 MG/2 ML VIAL IV SCH (09:00)
[2023-09-12] MEDS ORDERED: ALPRAZolam 0.5 MG TABLET PO SCH (09:00)
[2023-09-12] MEDS: methylPREDNISolone 40 MG in SYRINGE 0 ML IV SCH (09:31)
--- NOTE | 2023-09-12 10:15 | Pharmacy Report ---
Pharmacy Glycemic Short Note 2 - Date of Service September 12, 2023 - Glycemic Short BSG Results (Last 24 hours): 09/11/23 09/11/23 09/11/23 09:55 15:59 19:43 Glucose 119 H POC Glucose 322 H* 341 H* 09/11/23 09/11/23 09/12/23 21:07 21:11 00:54 Glucose POC Glucose 315 H* 312 H* 228 H 09/12/23 09/12/23 09/12/23 04:20 05:54 06:06 Glucose 93 POC Glucose 105 H 91 09/12/23 08:11 Glucose POC Glucose 102 H OUTPATIENT ANTIDIABETIC REGIMEN: * Lantus 60 units sq qAM * Novolog 10 units AC + SSI * ~90+ units of insulin per day (reflecting A1c 10.5% 08/31/23) ASSESSMENT: * 63 yo F admitted with COPD Exacerbation, uncontrolled type 2 DM, on IV Solu- Medrol 60mg yesterday, 40mg IV daily started today. IV doxycycline. * Patient received 116 units of insulin yesterday, 80 units basal. * Continue home basal dose with PRN dose HS and tight NovoLog coverage while on steroids. PLAN FOR INPATIENT GLYCEMIC CONTROL: * Basal insulin * Lantus 60 units SQ daily, 20 units SQ HS for BSG 200mg/dl or greater * Bolus insulin * NovoLog per scale ACHS or Q6hrs while NPO * Goal Range: Low 110 mg/dL - High 140 mg/dL * Correction Factor: 15 mg/dL/unit * Nutritional / Prandial insulin per carb ratio of 1 unit per 6 grams CHO consumed
[2023-09-12] MEDS: POLYETHYLENE (MIRALAX) 17 GM PACK PO SCH (10:21)
[2023-09-12] MEDS: GLYCERIN ADULT 12 SUPP/BOX SUPP PR ONE (11:10)
--- NOTE | 2023-09-12 15:39 | Hospitalist Progress Note ---
Date of Service September 12, 2023 Assessment & Plan (1) Acute exacerbation of chronic obstructive pulmonary disease: Plan: - Admitted to med/tele on pulse oximetry - Initially requiring 2L of supplemental oxygen but has since been weaned to room air w/ sat of 92% - CXR negative for focal consolidations or fluid - Low suspicion for PE at this time as she has been compliant with Lovenox, has been hemodynamically stable, and is without pleuritic chest pain - Continue Levalbuterol/Ipratropium nebs QIDr, Budesonide/formoterol nebs BIDr, Q12h doxycycline, 40 mg IV solud-medrol daily, and Guaifenesin >Incentive spirometry, flutter therapy, prn O2 to keep SpO2 between 88-92% - Continue to stress smoking cessation - SQ lovenox for DVT PPX - CBC reviewed today, wbc elevated at 18, suspect demargination d/t steroids (2) Hypokalemia: Plan: Acute/unstable - BMP reviewed this AM, potassium 2.7 - On KCl 40meq BID chronically, give additional dose of 40 meq this afternoon (making 3 doses on 09/11) - Repeat BMP in AM (3) Opiate dependence: Plan: Chronic/stable - Continue decreased Suboxone dose: 8 mg SL in the am and 4 mg SL in the afternoon - Continue to encourage further weaning of Suboxone (4) Heart failure with preserved ejection fraction: Plan: Chronic/stable - Euvolemic today - Has been much more stable since starting metolazone - Continue BID Bumex with metolazone 3 x weekly - Low sodium diet ordered (5) Elevated troponin: Plan: Acute/stable - Initial high sen trop peaked at 29 and downtrended this AM to 22 - No chest pain or ECG changes - Likely due to demand - Continue to monitor on tele - Recent echo in July 2023 without any new WMA (6) Diabetes: Plan: -Monitor BSG ACHS, goal is 110-160 -Continue 60 units SQ lantus daily -CF 50 and CR 15 ACHS -Pharmacy glycemic consult placed (7) Tobacco abuse: Plan: -Continue to stress cessation Plan Continue current management for COPD exacerbation as outlined above. Replace potassium. Repeat labs in AM. Anticipate probably can be discharged home tomorrow 09/12. Plan of care d/w Dr. Varghese. Admission and Anticipated Discharge Date Admission Date: September 11, 2023 Fina Cardoso was seen and examined this morning. She was admitted yesterday with acute exacerbation of COPD. She reports that she is still having trouble getting the mucus out and is asking for Mucinex. She denies chest pain. Her breathing is about the same but she is not currently requiring supplemental oxygen. She denies fever, chills, n/v/d, headache, or gu symptoms. Review of Systems 2 Review of Systems: All systems reviewed and are unremarkable except as noted in HPI and below. Denies fever, chills, fatigue, headache, nasal congestion, sore throat, chest pain, palpitations, orthopnea, PND, abdominal pain, n/v/d, constipation, dysuria, hematuria, frequency, back pain, joint pain or swelling, easy bruising or bleeding, skin lesions or rashes. Physical Exam 2 Physical Exam: GENERAL: 63 yo WD/WN female. A&O x3. No distress. LUNGS: Nonlabored. Decreased air exchange with scattered expiratory wheezing. CARDIOVASCULAR: Mildly tachycardic ABDOMEN: Soft, non-tender and non-distended. BS normoactive x 4 quad. EXTREMITIES: No edema. Non-tender. Peripheral pulses +2/4. SKIN: Warm, dry, intact. No rashes or lesions. Results & Data Results & Data Vital Signs (Past 12 Hours) Vital Signs Temp Pulse Pulse Resp BP BP Pulse Ox 09/12/23 11:35 36.8 C 101 H 15 124/77 92 09/12/23 11:06 95 H 18 93 09/12/23 10:16 89 09/12/23 09:35 09/12/23 07:54 36.7 C 90 16 127/82 96 09/12/23 07:21 96 H 16 94 09/12/23 04:16 36.7 C 88 20 112/75 92 O2 Del Method 09/12/23 11:35 Room Air 09/12/23 11:06 Room Air 09/12/23 10:16 09/12/23 09:35 Room Air 09/12/23 07:54 Room Air 09/12/23 07:21 Room Air 09/12/23 04:16 Room Air Laboratory Results 09/12/23 05:54 09/12/23 05:54 PG Care Time/CCT Total # of Minutes Spent Total Time Spent with Patient: Total time spent is greater than 50% in coordination of care (as documented) at patient's floor/unit and/or counseling patient: Coding Level of Care Code 88635 SUB INP/OBS CARE MIN Diagnoses Acute exacerbation of chronic obstructive pulmonary disease J44.1 Hypokalemia E87.6 Opioid dependence in remission F11.21 Substance use status: in remission Chronic heart failure with preserved ejection fraction I50.32 Heart failure chronicity: chronic Elevated troponin R79.89 Type 2 diabetes mellitus without complication, with long-term current use of insulin E11.9; Z79.4 Diabetes mellitus type: type 2 Diabetes mellitus mcfp insulin use: with intermediate designer use Diabetes mellitus complication status: without complication Tobacco abuse Z72.0 (3) Opiate dependence Substance use status: in remission Qualified Code(s): F11.21 - Opioid dependence, in remission (4) Heart failure with preserved ejection fraction Heart failure chronicity: chronic Qualified Code(s): I50.32 - Chronic diastolic (congestive) heart failure (6) Diabetes Diabetes mellitus type: type 2 Diabetes mellitus mcfp insulin use: with intermediate designer use Diabetes mellitus complication status: without complication Qualified Code(s): E11.9 - Type 2 diabetes mellitus without complications; Z79.4 - care home (current) use of insulin
[2023-09-12] MEDS: POTASSIUM CHLORIDE CRTAB 20 MEQ TABCR PO ONE (16:00)
[2023-09-12] MEDS: LANTUS PER UNIT CHARGE SC SCH (20:51)
[2023-09-12] MEDS ORDERED: QUEtiapine FUMARATE 200 MG TAB PO SCH (21:00)
--- OUTSIDE RECORDS SUMMARY | 2023-09-13 00:21 | External Medical Summary | Continuity of Care Document ---
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 Name Role Phone Radha Barboza Primary Care Physician [phone] [id number] Date[facility]s): 09/08/23 - 09/08/23 [facility] 0 [facility] [place] [place] 207 [facility] [address] Medical [facility] 1850 [facility] [address] [place] [address] [phone] Encounter Diagnosis COPD with exacerbation(Discharge Diagnosis) - 09/08/23 Discharge Disposition: Home or Self Care Attending Physician: ELENA Barboza [facility] Allergies, Adverse Reactions, Alerts Substance Criticality Severity Reaction Reaction Severity Status codeine Active iodine topical Activ e Phenergan Unable to assess criticality Moderate Itchy Rash Active shellfish Active metFORMIN Angioedema Active oral contrast dye SOB - Shor tness of breath Active Benedryl Allergy Sinus Active Immunizations Given and Recorded Vaccine Date Status Refusal Reason SARS-CoV-2 (COVID-19) mRNA BNT-162b2 vax 1 04/06/21 Recorded SARS-CoV-2 (COVID-19) mRNA BNT-162b2 vax 2 09/02/20 Recorded SARS-CoV-2 (COVID-19) mRNA BNT-162b2 vax 3 08/08/20 Recorded 1Result Comment: 2023-03-11: Historical information-source unspecified 2Result Comment: 2023-03-11: Historical information-source unspecified 3Result Comment: 2023-03-11: Historical information-source unspecified Medications Accu-Chek FastClix Lancets Start: 06/30/23 2:06:00 PM EST, See Instructions, Disp# 102 lancet, Refills: 0, 32G x , Pharmacy:[id number] Start Date: 06/30/23 Status: Ordered ALPRAZolam 0.5 mg oral tablet Start: 08/26/23 4:22:00 PM EDT, 1 tab, PO, bid, Disp# 90 tab, Refills: 5, Make take an extra tablet for acute panic attacks. Max 3/day, PRN: as needed for anxiety, [id number], Earliest Fill Date: 09/11/23 Start Date: 08/26/23 Status: Ordered bumetanide 2 mg oral tablet Start: 03/09/23 10:51:00 PM EST, See Instructions, Disp# 360 tab, Refills: 3, TAKE 2 TABLETS BY MOUTH IN THE MORNING AND 2 TABLET AT LUNCHTIME, [id number] Start Date: 03/09/23 Status: Ordered buprenorphine-naloxone 8 mg-2 mg sublingual film Start: 08/28/23 11:44:00 AM EDT, 1 patch, SL, bid, Disp# 60 patch, Refills: 0, [id number] Start Date: 08/28/23 Stop Date: 09/27/23 Status: Ordered DEXCOM G6 SENSOR Start: 06/26/23 9:55:00 AM EST, DEXCOM G6 SENSOR, See Instructions, Disp# 3 unknown unit, Refills: 1,USE DIRECTED BY MD TO TEST GLUCOSE 4-5 TIMES A DAY, Pharmacy [id number] Start Date: 06/26/23 Status: Ordered Dexcom G6 Sensor Kit Start: 06/24/23 9:01:00 AM EST, See Instructions, Disp# 1 kit, Refills: 5, Check BS up to three times daily, Note to Pharmacy: Uncontrolled DM2 (E11.65), Pharmacy: [id number] Start Date: 06/24/23 Status: Ordered enoxaparin 150 mg/mL injectable solution Start: 06/24/23 9:03:00 AM EST, 1 mL, subQ, Daily, Disp# 30 mL, Refills: 11, Pharmacy: [id number] Start Date: 06/24/23 Status: Ordered fluticasone 50 mcg/inh nasal spray Start: 09/02/23 9:54:00 AM EDT, 1 spray, each nostril, bid Start Date: 09/02/23 Status: Ordered Lantus Solostar Pen Start: 09/25/14 10:14:00 AM EDT, 55 unit =, subQ, Daily Start Date: 09/25/14 Status: Ordered levalbuterol CFC free 45 mcg/inh inhalation aerosol Start: 08/26/23 4:26:00 PM EDT, 2 puff, inhaled, q6h, Disp# 15 g, Refills: 3, PRN: as needed for wheezing, Pharmacy: [id number] Start Date: 08/26/23 Status: Ordered NovoLOG FlexPen 100 units/mL injectable solution Start: 02/17/23 3:10:00 PM EDT, 10 unit =, subQ, ac, Disp# 15 mL, Refills: 5, Pharmacy: [id number] Start Date: 02/17/23 Status: Ordered ondansetron 4 mg oral tablet, disintegrating Start: 08/26/23 4:23:00 PM EDT, 1 tab, PO, q8h, Disp# 30 tab, Refills: 1, PRN: as needed for nausea/vomiting, Pharmacy: [id number] Start Date: 08/26/23 Status: Ordered Ozempic (0.25 mg or 0.5 mg dose) 2 mg/3 mL subQ pen Start: 07/08/23 2:47:00 PM EDT, See Instructions, subQ, q7days, Disp# 3 mL, Refills: 1, Inject 0.25 mg every 7 days X 4 weeks then increase to 0.5 mg SQ every 7 days., Pharmacy: [id number], Supply Start Date: 07/08/23 Status: Ordered Potassium Chloride (Eqv-K-Tab) 20 mEq oral tablet, extended release Start: 07/14/23 2:21:00 PM EDT, 1 tab, PO, tid, Disp# 90 tab, Refills: 3, Pharmacy: [id number] Start Date: 07/14/23 Stop Date: 11/11/23 Status: Ordered QUEtiapine 200 mg oral tablet Start: 06/22/23 5:20:00 PM EST, 1 tab, PO, Daily, Disp# 90 tab, Refills: 3, Pharmacy: [id number] Start Date: 06/22/23 Status: Ordered Trelegy Ellipta 200 mcg-62.5 mcg-25 mcg/inh inhalation powder Start: 07/08/22 11:13:00 AM EDT Start Date: 07/08/22 Status: Ordered UltiCare Pen Needle 32G x 4mm Start: 07/08/23 2:51:00 PM EDT, See Instructions, Disp# 100 pen_needle, Refills: 1, Use three times daily, Note to Pharmacy: E11.65, Pharmacy: [id number] Start Date: 07/08/23 Status: Ordered Ventolin HFA 90 mcg/inh inhalation aerosol Start: 08/13/23 11:23:00 AM EDT, 2 puff, inhaled, qid, Disp# 8 g, Refills: 5, PRN: as needed for wheezing, Pharmacy: [id number] Start Date: 08/13/23 Status: Ordered Zaroxolyn 2.5 mg oral tablet Start: 08/12/23 5:12:00 PM EDT, See Instructions, Disp# 15 tab, Refills: 1, 1 tab QOD, Pharmacy: [id number] Start Date: 08/12/23 Status: Ordered Mental Status 09/08/23 Barriers to Learning one year None evide nt Mandatory Health Literacy Documentation Yes Health Literacy Communication Barriers N ever Primary Language Chinese Problem List Condition Confirmation Course Effective Dates [...] Service Informant COPD with exacerbation Discharge Diagnosis 09/08/23 Non-Specified Procedures Procedure Date Related Diagnosis Body Site Status Bone marrow biopsy 2013 Comple ganesh Vital Signs Most recent to oldest [Reference Range]: 1 Heart Rate 98 bpm (09/08/23 12:51 PM) Respiratory Rate 12 br/min (09/08/23 12:51 PM) Blood Pressure 126/78mmHg (09/08/23 12:51 PM) Cuff Pulse Pressure 48 mmHg (09/08/23 12:51 PM) Social History Social History Type Response Smoking Status Current every day li ght smoker Sex Female Patient Care team information Care Team Personnel Name: ELENA Barboza, Radha Bhatai Position: Physician Asst Exmpt - Family Med Member Role: Primary Care Provider Address: Address: [facility] [address] [address] Name: MARGARET Dunn Jo Ann M Position: Nurse Pract - Hem/Onc Member Role: Lifetime Relationship Address: Address: [address] [place] [id number] Care Team Related Persons Name: MO SAMUEL Address: home [place]
[2023-09-13] MEDS: guaiFENesin SUGAR FREE 200 MG/10 ML UDC PO SCH ×2 (05:01→08:48)
[2023-09-13 06:45] LABS: Basophils # (auto) 0.06 K/uL (0.00-0.20); Basophils % (auto) 0.4 %; Eosinophils # (auto) 0.08 K/uL (0.00-0.50); Eosinophils % (auto) 0.5 %; Hematocrit (blood only) 45.6 % (37.0-47.0); Hemoglobin 14.9 g/dl (12.0-16.0); Immature Granulocytes # (auto) 0.08 K/uL (0.01-0.20); Immature Granulocytes % (auto) 0.5 %; Lymphocytes # (auto) 4.17 K/uL (1.20-3.40); Lymphocytes % (auto) 25.4 %; Mean Corpuscular Hemoglobin 26.4 pg (25.0-34.0); Mean Corpuscular Hgb Conc 32.7 g/dL (32.0-36.0); Mean Corpuscular Volume 80.7 fL (80.0-100.0); Mean Platelet Volume 9.5 fL (9.4-12.4); Monocytes % (auto) 4.9 %; Neutrophils # (auto) 11.24 K/uL (1.40-6.50); Neutrophils % (auto) 68.3 %; Platelet Count 280 K/uL (130-400); RDW Standard Deviation 48.3 fL (36.4-46.3); Red Blood Count 5.65 M/uL (4.20-5.40); White Blood Count 16.43 K/ul (4.8-10.8)
[2023-09-13 07:12] LABS: BUN Creatinine Ratio 36.4 (10-20); Calcium 9.5 mg/dl (8.6-10.3); Creatinine Clr Calc Pharmacy 70.7 ml/min; Est GFR (African American) 81.6 ml/min; Est GFR (Non-African American) 70.4 ml/min; Magnesium 1.8 mg/dl (1.7-2.4); Potassium 3.5 mmol/L (3.5-5.1)
[2023-09-13 07:28] LABS: Prothrombin Time 11.1 Seconds (9.0-12.0)
--- NOTE | 2023-09-13 07:57 | Hospitalist Progress Note ---
Date of Service September 13, 2023 Assessment & Plan (1) Acute exacerbation of chronic obstructive pulmonary disease: Plan: - Admitted to med/tele on pulse oximetry on 09/11/2023 - Initially requiring 2L of supplemental oxygen but has since been weaned to room air w/ sat of 92% - CXR negative for focal consolidations or fluid - Low suspicion for PE at this time as she has been compliant with Lovenox for pulmonary embolism identified in 2019, has been hemodynamically stable, and is without pleuritic chest pain - Continues with persistent wheezes. PFTs from 08/2022 with restrictive lung disease. Target SpO2 >90% - Continue Levalbuterol/Ipratropium nebs QIDr, Budesonide/formoterol nebs BIDr, Q12h doxycycline, 40 mg IV solud-medrol daily, and Guaifenesin >Incentive spirometry, flutter therapy, prn O2 to keep SpO2 >90% - Continue to stress smoking cessation. She is congratulated for reducing intake to 1-3 cigarettes daily - SQ lovenox for DVT PPX - CBC reviewed today, wbc elevated at 18, suspect demargination d/t steroids - F/U with Pulmonary in [place], [place] scheduled for 09/2023 (2) Hypokalemia: Plan: Acute/unstable - Potassium 2.7 yesterday and improved to 3.4 today - Continue KCl 40meq BID chronically, give additional dose of 40 meq this afternoon (making 3 doses on 09/11) - Repeat BMP in AM (3) Opiate dependence: Plan: Chronic/stable - Continue decreased Suboxone dose: 8 mg SL in the am and 4 mg SL in the afternoon - Continue to encourage further weaning of Suboxone (4) Heart failure with preserved ejection fraction: Plan: Chronic/stable - Euvolemic today - Has been much more stable since starting metolazone - Continue BID Bumex with metolazone 3 x weekly - Low sodium diet ordered (5) Elevated troponin: Plan: Acute/stable - Initial high sen trop peaked at 29 and downtrended this AM to 22 - No chest pain or ECG changes - Likely due to demand - Continue to monitor on tele - Recent echo in July 2023 without any new WMA (6) Diabetes: Plan: -Monitor BSG ACHS, goal is 110-160 -Continue 60 units SQ lantus daily -CF 50 and CR 15 ACHS -Pharmacy glycemic consult placed (7) Tobacco abuse: Plan: - Patient congratulated on reducing to 1-3 cigarettes daily and encouraged to continue efforts of complete abstention (8) Multiple myeloma: Plan: - S/P stem cell transplant - Last chemotherapy 2016 - F/U with medical oncology September 2023 in [facility] Plan Continue current management for COPD exacerbation as outlined above. Replace potassium. Repeat labs in AM. Continues with persistent bronchospasm. Continue IV steroids and nebulizer treatments. Plan of care d/w Dr. Varghese. Admission and Anticipated Discharge Date Admission Date: September 11, 2023 Subjective Attending: Dr. Varghese Patient was admitted 09/11/2023 with acute exacerbation of chronic obstructive pulmonary disease. She did require supplemental oxygen at 2 L/min via nasal cannula. It appears to been weaned off yesterday with saturations at 92% on room air. Vitals reviewed this morning's show SpO2 at 94% on room air with a heart rate of 96 bpm. Chest x-ray on admission personally reviewed. Patient with mild interstitial thickening. No pleural effusion. No pneumothorax. No evidence of pneumonia or consolidation. Patient has been afebrile the entire visit with a Tmax of 37.2 degrees centigrade. Patient does not appear follow with [facility] pulmonary [facility]. Pulmonary function test from 03/06/2023 reviewed. FEV1 51% of predicted, FVC 54 FEV1/FVC ratio preserved at 94% of predicted. This seems to represent moderate severe restrictive disease. Patient does appear to have seen a manager background at [facility] in [facility] 08/28/2022. At that time she was taken off Trelegy Ellipta and placed on budesonide as she said the systemic steroids from the Trelegy Ellipta made her jittery. Anxiety appears to be controlled with Alprazolam 0.25 mg by mouth 3 times daily. Patient follows with pulmonary and with medical oncology in [place], [place]. She has follow up with both groups in September2023 Patient continues with SOB and currently continues with significant wheezes even immediately after nebulizer treatments. No fever or chills. No chest pain. Although she feels improved since admission, she is still struggling with SOB even with minimal exertion. Review of Systems 2 Review of Systems: A total of 10 systems was reviewed and is negative other than as listed in the HPI Physical Exam 2 Physical Exam: GENERAL : No acute distress EYES: No icterus, gaze conjugate NOSE: No evidence of epistaxis MOUTH: No lesions or candidiasis NECK: Supple. No stridor LUNGS: Course wheezes in all lung zones. No rales or rhonchi HEART: Regular, rate controlled ABDOMEN: Soft, NT, ND, BS Present EXTREMITIES: Trace B/L LE edema, pedal pulses intact NEURO: A&OX3 Results & Data Results & Data Vital Signs (Past 12 Hours) Vital Signs Temp Pulse Pulse Resp BP Pulse Ox O2 Del Method 09/13/23 07:41 36.5 C 96 H 17 137/90 94 Room Air 09/13/23 07:19 103 H 18 92 Room Air 09/13/23 03:50 36.5 C 86 20 128/85 92 Room Air 09/12/23 23:33 36.5 C 72 20 121/81 95 Room Air 09/12/23 22:01 101 H 09/12/23 20:45 Room Air 09/12/23 19:58 36.8 C 98 H 20 116/66 95 Room Air 09/12/23 19:56 78 18 92 Room Air Laboratory Results 09/13/23 06:15 09/13/23 06:15 Diagnostic Findings Chest X-Ray 09/11/23 09:44 XR chest 1V portable HISTORY: 63 years-old Female sob acute shortness of breath COMPARISON: 08/30/2023 TECHNIQUE: AP view of the chest FINDINGS: Cardiac silhouette is enlarged. Mild chronic interstitial coarsening. No pneumothorax, pleural effusion or airspace consolidation. The bones appear intact. IMPRESSION: No acute process. ACT 112: Negative or not required by law. The above report was generated using voice recognition software. It may contain grammatical, syntax or spelling errors. Electronically signed by: Avi Leon M.D. 09/11/2023 10:32 AM PG Care Time/CCT Total # of Minutes Spent Total Time Spent with Patient: Total time spent is greater than 50% in coordination of care (as documented) at patient's floor/unit and/or counseling patient: Coding Level of Care Code 62165 SUB INP/OBS CARE 2/35MIN Diagnoses Acute exacerbation of chronic obstructive pulmonary disease J44.1 Hypokalemia E87.6 Opioid dependence in remission F11.21 Substance use status: in remission Chronic heart failure with preserved ejection fraction I50.32 Heart failure chronicity: chronic Elevated troponin R79.89 Type 2 diabetes mellitus without complication, with long-term current use of insulin E11.9; Z79.4 Diabetes mellitus complication status: without complication Diabetes mellitus extermination inspector insulin use: with mcc use Diabetes mellitus type: type 2 Tobacco abuse Z72.0 Multiple myeloma C90.00 Multiple myeloma remission status: unspecified Time Spent (min) 30 (3) Opiate dependence Substance use status: in remission Qualified Code(s): F11.21 - Opioid dependence, in remission (4) Heart failure with preserved ejection fraction Heart failure chronicity: chronic Qualified Code(s): I50.32 - Chronic diastolic (congestive) heart failure (6) Diabetes Diabetes mellitus complication status: without complication Diabetes mellitus extermination inspector insulin use: with extermination inspector use Diabetes mellitus type: type 2 Qualified Code(s): E11.9 - Type 2 diabetes mellitus without complications; Z79.4 - senior living (current) use of 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
[2023-09-13] MEDS: INSULIN HUMAN NPH SC SCH (09:28)
[2023-09-13] MEDS: SOD PHOSPHATE/SOD BIPHOSPHATE ENEMA 132 ML BTL PR PRN (10:22)
--- NOTE | 2023-09-13 12:29 | Pharmacy Report ---
Pharmacy Glycemic Short Note 2 - Date of Service September 13, 2023 - Glycemic Short BSG Results (Last 24 hours): 09/12/23 09/12/23 09/12/23 17:11 17:14 20:27 Glucose POC Glucose 400 H* 421 H* 377 H* 09/12/23 09/13/23 09/13/23 20:29 01:57 04:22 Glucose POC Glucose 369 H* 78 191 H 09/13/23 09/13/23 09/13/23 04:27 04:30 06:15 Glucose 147 H POC Glucose 154 H 162 H 09/13/23 09/13/23 08:12 12:12 Glucose POC Glucose 130 H 125 H OUTPATIENT ANTIDIABETIC REGIMEN: * Lantus 60 units sq qAM * Novolog 10 units AC + SSI * ~90+ units of insulin per day (reflecting A1c 10.5% 08/31/23) ASSESSMENT: 09/12 * Blood sugars rising throughout the day then falling overnight on Lantus (24 hour), will change to NPH (12 hour). * Patient remains on Solu-Medrol 40mg IV daily. * No other changes at this time. 09/11 * 63 yo F admitted with COPD Exacerbation, uncontrolled type 2 DM, on IV Solu- Medrol 60mg yesterday, 40mg IV daily started today. IV doxycycline. * Patient received 116 units of insulin yesterday, 80 units basal. * Continue home basal dose with PRN dose HS and tight NovoLog coverage while on steroids. PLAN FOR INPATIENT GLYCEMIC CONTROL: * Basal insulin * DC Lantus * NPH 60 units SQ daily * Bolus insulin * NovoLog per scale ACHS or Q6hrs while NPO * Goal Range: Low 110 mg/dL - High 140 mg/dL * Correction Factor: 15 mg/dL/unit * Nutritional / Prandial insulin per carb ratio of 1 unit per 6 grams CHO consumed
[2023-09-14 06:06] LABS: Basophils # (auto) 0.05 K/uL (0.00-0.20); Basophils % (auto) 0.3 %; Eosinophils # (auto) 0.06 K/uL (0.00-0.50); Eosinophils % (auto) 0.3 %; Hematocrit (blood only) 48.5 % (37.0-47.0); Hemoglobin 15.7 g/dl (12.0-16.0); Immature Granulocytes # (auto) 0.13 K/uL (0.01-0.20); Immature Granulocytes % (auto) 0.8 %; Lymphocytes # (auto) 4.25 K/uL (1.20-3.40); Lymphocytes % (auto) 24.6 %; Mean Corpuscular Hemoglobin 26.4 pg (25.0-34.0); Mean Corpuscular Hgb Conc 32.4 g/dL (32.0-36.0); Mean Corpuscular Volume 81.6 fL (80.0-100.0); Mean Platelet Volume 9.8 fL (9.4-12.4); Monocytes # (auto) 0.86 K/uL (0.11-0.59); Neutrophils # (auto) 11.95 K/uL (1.40-6.50); Platelet Count 282 K/uL (130-400); RDW Coefficient of Variation 17.9 % (11.5-14.5); RDW Standard Deviation 48.8 fL (36.4-46.3); Red Blood Count 5.94 M/uL (4.20-5.40)
[2023-09-14 06:18] LABS: BUN Creatinine Ratio 34.7 (10-20); Calcium 9.4 mg/dl (8.6-10.3); Creatinine Clr Calc Pharmacy 62.8 ml/min; Est GFR (African American) 71.7 ml/min; Est GFR (Non-African American) 61.8 ml/min; Magnesium 1.8 mg/dl (1.7-2.4); Potassium 3.6 mmol/L (3.5-5.1)
[2023-09-14 06:21] LABS: Prothrombin Time 11.2 Seconds (9.0-12.0)
[2023-09-14] MEDS: metOLazone 5 MG TABLET PO SCH (07:44)
[2023-09-14] MEDS: DOXYCYCLINE HYCLATE 100 MG CAP PO SCH (08:45)
[2023-09-14] MEDS: INSULIN HUMAN NPH SC SCH (08:46)
--- NOTE | 2023-09-14 10:56 | Hospitalist Progress Note ---
Date of Service September 14, 2023 Assessment & Plan (1) Acute exacerbation of chronic obstructive pulmonary disease: Plan: - Initially requiring 2L of supplemental oxygen but has since been weaned to room air w/ sat of 92% - CXR negative for focal consolidations or fluid - Low suspicion for PE at this time as she has been compliant with Lovenox for pulmonary embolism identified in 2019, has been hemodynamically stable, and is without pleuritic chest pain - Continues with persistent wheezes. PFTs from 08/2022 with restrictive lung disease. Target SpO2 >90% - Continue Levalbuterol/Ipratropium nebs QIDr, Budesonide/formoterol nebs BIDr, Q12h doxycycline (switched to PO), 40 mg IV solud-medrol daily, and Guaifenesin - Incentive spirometry, flutter therapy, - Continue to stress smoking cessation. She is congratulated for reducing intake to 1-3 cigarettes daily - F/U with Pulmonary in [place], [place] scheduled for 09/2023 patient still with wheezing throughout all lung soriano very hesitant about going home and getting worse. Very resistant to try allergy medicine but was agreeable to restart Flonase (2) Hypokalemia: Plan: - On KCl 40meq BID chronically, give additional dose of 40 meq 09/11 (making 3 doses on 09/11) improved, potassium 3.6 (3) Opiate dependence: Plan: Chronic/stable - Continue decreased Suboxone dose: 8 mg SL in the am and 4 mg SL in the afternoon - Continue to encourage further weaning of Suboxone (4) Heart failure with preserved ejection fraction: Plan: Chronic/stable - patient reports has been much more stable since starting metolazone - Continue BID Bumex with metolazone 3 x weekly - Low sodium diet ordered (5) Elevated troponin: Plan: Acute/stable - Initial high sen trop peaked at 29 and downtrended this AM to 22 - No chest pain or ECG changes - Likely due to demand - Continue to monitor on tele - Recent echo in July 2023 without any new WMA (6) Diabetes: Plan: -Monitor BSG ACHS, goal is 110-160 -Continue 60 units SQ lantus daily -CF 50 and CR 15 ACHS -Pharmacy glycemic consult placed (7) Tobacco abuse: Plan: -Continue to stress cessation (8) Multiple myeloma: Plan: - S/P stem cell transplant - Last chemotherapy 2017 - F/U with medical oncology September 2023 in [place] Plan dispo: Continued inpatient stay hopeful for discharge tomorrow DVT prophylaxis: Lovenox Admission and Anticipated Discharge Date Admission Date: September 11, 2023 Subjective Patient sitting up in the chair - states she has been ambulating in the halls but still gets short of breath. does not want to take allergy medicine - states it makes her more anxious and concerned that it is too similar to amphetamines that she has had issues with in the past. Cough has improved knows smoking makes it worse Review of Systems Review of Systems: All systems reviewed & are unremarkable except as noted in Subjective Physical Exam Physical Exam: General: NAD, VS as above Resp: no accessory muscle. + expiratory wheezing throughout CV: RRR, no murmur, Abd: normal bowel sounds, non tender, no hepatosplenomegaly Extremities: Moves all extremities, b/l LE non pitting edema Neuro: A&O x3, Skin: intact, no lesions noted Results & Data Results & Data Vital Signs (Past 12 Hours) Vital Signs Temp Pulse Pulse Resp BP Pulse Ox O2 Del Method 09/14/23 10:48 99 H 17 96 Room Air 09/14/23 09:57 Room Air 09/14/23 07:41 36.4 C L 93 H 18 132/82 94 Room Air 09/14/23 07:35 85 18 94 Room Air 09/14/23 05:50 86 09/14/23 03:49 36.4 C L 85 20 113/70 94 Room Air 09/13/23 23:10 36.8 C 94 H 20 116/75 95 Room Air FiO2 09/14/23 10:48 21 09/14/23 09:57 09/14/23 07:41 09/14/23 07:35 09/14/23 05:50 09/14/23 03:49 09/13/23 23:10 PG Care Time/CCT Total # of Minutes Spent Total Time Spent with Patient: Total time spent is greater than 50% in coordination of care (as documented) at patient's floor/unit and/or counseling patient: Coding Level of Care Code 55223 SUB INP/OBS CARE 2/35MIN Diagnoses Acute exacerbation of chronic obstructive pulmonary disease J44.1 Hypokalemia E87.6 Opioid dependence in remission F11.21 Substance use status: in remission Chronic heart failure with preserved ejection fraction I50.32 Heart failure chronicity: chronic Elevated troponin R79.89 Type 2 diabetes mellitus without complication, with long-term current use of insulin E11.9; Z79.4 Diabetes mellitus complication status: without complication 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 insulin use: with local company intermodal truck driver use Diabetes mellitus type: type 2 Tobacco abuse Z72.0 Multiple myeloma C90.00 Multiple myeloma remission status: unspecified (3) Opiate dependence Substance use status: in remission Qualified Code(s): F11.21 - Opioid dependence, in remission (4) Heart failure with preserved ejection fraction Heart failure chronicity: chronic Qualified Code(s): I50.32 - Chronic diastolic (congestive) heart failure (6) Diabetes Diabetes mellitus complication status: without complication Diabetes mellitus chcf insulin use: with chcf use Diabetes mellitus type: type 2 Qualified Code(s): E11.9 - Type 2 diabetes mellitus without complications; Z79.4 - medical terminologist (current) use of 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
[2023-09-14] MEDS: FLUTICASONE PROPIONATE NA SPR 16 GM BTL SCH (12:29)
[2023-09-15 07:23] LABS: Anion Gap 9 (3-11); BUN Creatinine Ratio 37.5 (10-20); Blood Urea Nitrogen 33 mg/dl (6-23); Calcium 9.8 mg/dl (8.6-10.3); Carbon Dioxide 33 mmol/L (21-32); Chloride 98 mmol/L (98-107); Creatinine Clr Calc Pharmacy 69.7 ml/min; Est GFR (African American) 81.6 ml/min; Est GFR (Non-African American) 70.4 ml/min; Glucose 90 mg/dl (70-99(Fasting)); Potassium 4.3 mmol/L (3.5-5.1); Sodium 140 mmol/L (136-145)
[2023-09-15] MEDS: INSULIN HUMAN NPH SC SCH (09:20)
--- NOTE | 2023-09-15 09:54 | Discharge Summary ---
Discharge Summary Date of Service September 15, 2023 Notes For Next Care Provider COPD exacerbation - improving with steroids and nebulizers. Suspect exacerbated from enviroment and smoking. continue course of doxycycline and steroid taper. Medication Changes From Visit prednisone taper doxycycline x 3 days Admission HPI Per Admitting Provider Janae Monzon is 63yo female with multiple medical comorbidities including COPD on supplemental O2 2L NC HS, ongoing tobacco use causing recurrent COPD exacerbations, HFpEF, DM, prior PE on Lovenox, obesity hypoventilation syndrome, opioid dependence (on Suboxone), DMII, and anxiety who presented to the [facility] ED on 09/11/23 due to acute on chronic SOB which began at approximately 0300 today. Shewas noted to be hypoxic at 87% on RA (despite being chronically oxygen dependent), respirations of 27, but otherwise stable. Labs were significant for a leukocytosis of 15 with neutrophil predominance of 11, CBC consistent with hemoconcentration, VBG pH of 7.44 with pCO2 of 58, and pO2 WNL, chloride of 92, potassium of 3.4, initial high sen trop of 29. CXR was read as negative for acute findings. Prior to admission the patient was given 2 albuterol nebulizer treatments, a levalbuterol treatment, 0.5 mg IV Ativan, 1gm Iv mag-sulfate, and 60 mg Iv methylprednisolone. At the time of the exam the patient was sitting in bed in no acute distress. States that she started to develop worsening SOB at the beginning of the week. Symptoms progressed to the point that she could not speak in complete sentences this am. She called her PCP who recommended she come to the ED. Still smoking "a few" cigarettes daily, knows she needs to quit. Has not been able to smoke the past 2 days due to her symptoms. Has been working on weaning down her Suboxone dose. She is currently taking 8 mg SL in the am and 4 mg SL in the afternoon this week. Her symptoms have improved slightly since arrival. She is a full code. Denies recent fever, chills, chest pain, hemoptysis, and pain, nausea, vomiting, diarrhea, dysuria, hematuria, melena, LE swelling and recent trauma. Please refer to Dr. Linton's attestation for any changes to the treatment plan Principal Dx & Hospital Course #1 = Principal Diagnosis (1) Acute exacerbation of chronic obstructive pulmonary disease: - Initially requiring 2L of supplemental oxygen but has since been weaned to room air w/ sat of 92% - CXR negative for focal consolidations or fluid - Low suspicion for PE at this time as she has been compliant with Lovenox for pulmonary embolism identified in 2019, has been hemodynamically stable, and is without pleuritic chest pain - Continues with persistent wheezes. PFTs from 08/2022 with restrictive lung disease. Target SpO2 >90% - Continue home nebs, inhalers, flonase, mucinex, Incentive spirometry, flutter therapy at discharge - steroid taper at discharge - continue course of doxycycline - Continue to stress smoking cessation. She is congratulated for reducing intake to 1-3 cigarettes daily - F/U with Pulmonary in [place] scheduled for 09/2023 breath sounds improving, discharge to home today - patient does not need any refills of medications at discharge (2) Hypokalemia: - On KCl 40meq BID chronically, give additional dose of 40 meq 09/11 (making 3 doses on 09/11) improved, potassium 3.6 (3) Opiate dependence: Chronic/stable - Continue decreased Suboxone dose: 8 mg SL in the am and 4 mg SL in the afternoon - Continue to encourage further weaning of Suboxone (4) Heart failure with preserved ejection fraction: Chronic/stable - patient reports has been much more stable since starting metolazone - Continue BID Bumex with metolazone 3 x weekly (5) Elevated troponin: Acute/stable - Initial high sen trop peaked at 29 and downtrended this AM to 22 - Likely due to demand - Recent echo in July 2023 without any new WMA (6) Diabetes: no changes to home regiment at discharge (7) Tobacco abuse: -Continue to stress cessation (8) Multiple myeloma: - S/P stem cell transplant - Last chemotherapy 2016 - F/U with medical oncology [place] 2023 [place] Plan dispo: discharge to home today Discharge Exam General: NAD, VS as above Resp: no accessory muscle. + expiratory wheezing LLL, overall air movement improved CV: RRR, no murmur, Abd: normal bowel sounds, non tender, no hepatosplenomegaly Extremities: Moves all extremities, b/l LE non pitting edema Neuro: A&O x3, Skin: intact, no lesions noted Updated Medication List Medication Instructions Recorded Confirmed Type buprenorphine 8 mg-naloxone 2 mg 1 film sublingual QAM 05/14/22 09/11/23 History sublingual film nystatin 100,000 unit/gram topical 1 applic topical BID PRN UNDER 05/14/22 09/11/23 History powder BREASTS NEEDED. ondansetron HCl 4 mg tablet 4 mg PO Q8H PRN NAUSEA/VOMITING 05/14/22 09/11/23 History quetiapine 200 mg tablet 200 mg PO HS 05/14/22 09/11/23 History insulin glargine 100 unit/mL (3 60 unit subcut QAM 06/21/22 09/11/23 History mL) subcutaneous pen ipratropium bromide 0.02 % 3 ml continuous nebulization QID 01/16/23 09/11/23 History solution for inhalation levalbuterol HCl 1.25 mg/3 mL 1.25 mg inhalation TID PRN 01/16/23 09/11/23 Hi story solution for nebulization Shortness Of Breath Or Wheezing bumetanide 2 mg tablet 4 mg PO BID 03/02/23 09/11/23 History enoxaparin 150 mg/mL subcutaneous 150 mg subcut QAM 05/07/23 09/11/23 History syringe fluticasone fur. 200 mcg-umeclid 1 ea inhalation QAM 05/07/23 09/11/23 History 62.5 mcg-vilant 25 mcg inhalat.powder (Trelegy Ellipta) insulin aspart U-100 100 unit/mL 10 unit subcut AC 05/07/23 09/11/23 History (3 mL) subcutaneous pen (Novolog FlexPen U-100 Insulin aspart) levalbuterol tartrate 45 2 puff inhalation Q4 PRN WHEEZE 05/07/23 09/11/23 History mcg/actuation aerosol inhaler metolazone 5 mg tablet 5 mg PO 3XWK 07/28/23 09/11/23 History alprazolam 0.5 mg tablet 0.5 mg PO TID #14 tabs 08/02/23 09/11/23 Rx prednisone 10 mg tablet 0 mg PO DIRECTED PRN flare ups 08/16/23 09/11/23 History potassium chloride 20 mEq 40 meq (2 x 20 mEq) PO BID #120 08/18/23 09/11/23 Rx tablet,extended release(part/cryst) tabs albuterol sulfate 90 mcg/actuation 2 puff inhalation UD PRN Shortness 08/30/23 09/11/23 History aerosol inhaler Of Breath Or Wheezing buprenorphine 8 mg-naloxone 2 mg 0.5 film sublingual QPM 09/11/23 09/11/23 History sublingual film fluticasone propionate 50 1 spray intranasal BID PRN nasal 09/11/23 09/11/23 History mcg/actuation nasal congestion spray,suspension (Flonase Allergy Relief) guaifenesin 600 mg tablet, 600 mg PO Q12 PRN Congestion 09/11/23 09/11/23 History extended release 12 hr (Mucinex) doxycycline hyclate 100 mg capsule 100 mg PO BID 3 days #6 caps 09/15/23 Rx prednisone 10 mg tablet See Taper PO DIRECTED #40 tabs 09/15/23 Rx Hospital Stay Data Consultations 09/11/23 14:26 ED Decision to Admit Stat Diagnostic Imagining Performed Chest X-Ray 09/11/23 09:44 XR chest 1V portable HISTORY: 63 years-old Female sob acute shortness of breath COMPARISON: 08/30/2023 TECHNIQUE: AP view of the chest FINDINGS: Cardiac silhouette is enlarged. Mild chronic interstitial coarsening. No pneumothorax, pleural effusion or airspace consolidation. The bones appear intact. IMPRESSION: No acute process. ACT 112: Negative or not required by law. The above report was generated using voice recognition software. It may contain grammatical, syntax or spelling errors. Electronically signed by: Avi Leon M.D. 09/11/2023 10:32 AM Pending Results Patient Have Any Pending Studies at Discharge: No Discharge Instructions Given to Patient (Per Discharging Provider) Ms. Monzon, Marquez were hospitalized after a COPD exacerbation. This was treated with nebulizer treatments, IV steroids and antibiotics. You will continue on a prednisone taper and oral antibiotics (for 3 days). Continue your home inhalers. Prednisone: 40mg x 4 days 30mg x 4 days 20mg x 4 days 10mg x 4 days Use the ipratropium neb 4 times a day as prescribed. You can use the levalbuterol nebulizer treatment up to 3 times a day - please use when you feel your breathing is worsening. Recommend using your incentive spirometer and flutter valve (plastic breathing devices) every morning and more additional times throughout the day. Continue taking the mucinex and flonase daily. Could also consider any over the counter allergy medicine. Your eosinophil levels have been normal every time they have been checked. Try to avoid sleeping with the windows open and going outside when the pollen count is high (this is something you can find on most weather apps). Consider an air purifier in your bedroom. If you have to keep the windows open - encourage frequent vacuuming to remove pollen and dander. Recommend smoking cessation. Activity: You can do normal everyday activities as your body allows. Take rest breaks if you feel tired. Do not overexert. Stop activity if you have pain, shortness of breath or feel dizzy. Follow-up appointments: Make an appointment with your primary care physician within one week of discharge. A copy of this summary will be sent to them. Every time you see your primary care physician, or any other doctor, bring your medication list, and a list of questions. CONTACT YOUR PRIMARY CARE PROVIDER if you experience any of the following: Shortness of breath or difficulty breathing Fevers or chills Feeling tired with normal activity or experiencing dizziness or fainting Difficulty following your treatment plan, or difficulty taking medications CALL 911 OR GO TO THE EMERGENCY DEPARTMENT if you experience any of the following: Severe abdominal pain or nausea/vomiting Severe chest pain, or chest pain that radiates (moves) to your jaw or arm Sudden, severe shortness of breath or difficulty breathing Thank you for allowing us to participate in your care. Total Time Total Time Spent Total Time Spent (In Minutes): Time spend day of discharge 45 minutes including direct patient care, medication reconciliation, documentation, review of labs and images, and coordination of care. Coding Diagnoses Acute exacerbation of chronic obstructive pulmonary disease J44.1 Hypokalemia E87.6 Opioid dependence in remission F11.21 Substance use status: in remission Chronic heart failure with preserved ejection fraction I50.32 Heart failure chronicity: chronic Elevated troponin R79.89 Type 2 diabetes mellitus without complication, with long-term current use of insulin E11.9; Z79.4 Diabetes mellitus type: type 2 Diabetes mellitus driver guard insulin use: with driver guard use Diabetes mellitus complication status: without complication Tobacco abuse Z72.0 Multiple myeloma C90.00 Multiple myeloma remission status: unspecified
[2023-09-15 11:37] LABS: C Reactive Protein < 0.50 mg/dl (0-0.5)
[2023-09-15] MEDS: LEVALBUTEROL 1.25 MG/3 ML NEB NEB PRN (11:39)
[2023-09-15] MEDS ORDERED: IPRATROPIUM BROMIDE NEB SOLN 0.02% 0.5MG/2.5ML VIAL NEB PRN (11:55)
[2023-09-15] MEDS: SODIUM CHLOR 7% 4 ML NEB NEB SCH (12:03)
[2023-09-15] MEDS: INSULIN ASPART PER UNIT CHARGE SC SCH (13:03)
[2023-09-15] MEDS: UMECLIDINIUM BROMIDE 62.5MCG/BLISTER 7 PUFFS/INHALER INH SCH (14:05)
--- NOTE | 2023-09-15 16:46 | Hospitalist Progress Note ---
Date of Service September 15, 2023 Assessment & Plan (1) Acute exacerbation of chronic obstructive pulmonary disease: Plan: - Initially requiring 2L of supplemental oxygen but has since been weaned to room air w/ sat of 92% - CXR negative for focal consolidations or fluid - Low suspicion for PE at this time as she has been compliant with Lovenox for pulmonary embolism identified in 2019, has been hemodynamically stable, and is without pleuritic chest pain - PFTs from 08/2022 with restrictive lung disease. Target SpO2 >90% - continue course of doxycycline - methylprednisolone transition to p.o. prednisone for the morning - check peak flow - check CRP and trend - Add LAMA - INcruse - add hypertonic saline nebs - levalbuterol nebs changed to PRN - continue flutter valve, IS - continue budesonide (ICS), Perforomist (LABA) - continue Robitussin and Flonase Continue to stress smoking cessation. She is congratulated for reducing intake to 1-3 cigarettes daily - F/U with Pulmonary in [place], [place] scheduled for 09/2023 (2) Hypokalemia: Plan: - On KCl 40meq BID chronically, give additional dose of 40 meq 09/11 (making 3 doses on 09/11) improved, potassium 3.6 (3) Opiate dependence: Plan: Chronic/stable - Continue decreased Suboxone dose: 8 mg SL in the am and 4 mg SL in the afternoon - Continue to encourage further weaning of Suboxone (4) Heart failure with preserved ejection fraction: Plan: Chronic/stable - patient reports has been much more stable since starting metolazone - Continue BID Bumex with metolazone 3 x weekly (5) Elevated troponin: Plan: Acute/stable - Initial high sen trop peaked at 29 and downtrended this AM to 22 - Likely due to demand - Recent echo in July 2023 without any new WMA (6) Diabetes: Plan: pharmacy glycemic consult in the setting of steroids plus high baseline insulin needs * NPH 60 units SQ daily * NovoLog per scale ACHS or Q6hrs while NPO * Goal Range: Low 110 mg/dL - High 140 mg/dL * Correction Factor: 15 mg/dL/unit * Nutritional / Prandial insulin per carb ratio of 1 unit per 6 grams CHO consumed (7) Tobacco abuse: Plan: -Continue to stress cessation (8) Multiple myeloma: Plan: - S/P stem cell transplant - Last chemotherapy 2016 - F/U with medical oncology September 2023 in [place] Plan dispo: continued inpatient stay with continued wheezing Admission and Anticipated Discharge Date Admission Date: September 11, 2023 Subjective Patient seen sitting up in the chair. feeling better - still feels like she cant cough things up as much she wants to discussed in depth sleeping with windows open and the pollen at how that may be impacting her symptoms Review of Systems Review of Systems: All systems reviewed & are unremarkable except as noted in Subjective Physical Exam Physical Exam: General: NAD, VS as above Resp: no accessory muscle. + expiratory wheezing LLL, overall air movement improved CV: RRR, no murmur, Abd: normal bowel sounds, non tender, no hepatosplenomegaly Extremities: Moves all extremities, b/l LE non pitting edema Neuro: A&O x3, Skin: intact, no lesions noted Results & Data Results & Data Vital Signs (Past 12 Hours) Vital Signs Temp Pulse Pulse Resp BP Pulse Ox O2 Del Method 09/15/23 15:52 112 H 09/15/23 14:57 36.8 C 113 H 18 180/86 H 95 Room Air 09/15/23 11:39 101 H 18 94 Room Air 09/15/23 11:21 37.0 C 112 H 18 142/108 H 95 Room Air 09/15/23 09:36 Room Air 09/15/23 07:43 36.8 C 96 H 16 116/83 98 Room Air 09/15/23 07:20 81 09/15/23 07:16 90 18 95 Room Air Laboratory Results BMP reviewed PG Care Time/CCT Total # of Minutes Spent Total Time Spent with Patient: Total time spent is greater than 50% in coordination of care (as documented) at patient's floor/unit and/or counseling patient: Coding Level of Care Code 35738 SUB INP/OBS CARE 2/35MIN Diagnoses Acute exacerbation of chronic obstructive pulmonary disease J44.1 Hypokalemia E87.6 Opioid dependence in remission F11.21 Substance use status: in remission Chronic heart failure with preserved ejection fraction I50.32 Heart failure chronicity: chronic Elevated troponin R79.89 Type 2 diabetes mellitus without complication, with long-term current use of insulin E11.9; Z79.4 Diabetes mellitus type: type 2 Diabetes mellitus halfway insulin use: with halfway use Diabetes mellitus complication status: without complication Tobacco abuse Z72.0 Multiple myeloma C90.00 Multiple myeloma remission status: unspecified (3) Opiate dependence Substance use status: in remission Qualified Code(s): F11.21 - Opioid dependence, in remission (4) Heart failure with preserved ejection fraction Heart failure chronicity: chronic Qualified Code(s): I50.32 - Chronic diastolic (congestive) heart failure (6) Diabetes Diabetes mellitus type: type 2 Diabetes mellitus halfway insulin use: with halfway use Diabetes mellitus complication status: without complication Qualified Code(s): E11.9 - Type 2 diabetes mellitus without complications; Z79.4 - 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
[2023-09-16 07:54] LABS: Anion Gap 6 (3-11); BUN Creatinine Ratio 33.3 (10-20); Blood Urea Nitrogen 34 mg/dl (6-23); C Reactive Protein < 0.50 mg/dl (0-0.5); Calcium 9.7 mg/dl (8.6-10.3); Carbon Dioxide 36 mmol/L (21-32); Chloride 98 mmol/L (98-107); Creatinine Clr Calc Pharmacy 59.2 ml/min; Est GFR (African American) 68.3 ml/min; Est GFR (Non-African American) 58.9 ml/min; Glucose 123 mg/dl (70-99(Fasting)); Potassium 3.5 mmol/L (3.5-5.1); Sodium 140 mmol/L (136-145)
[2023-09-16] MEDS: predniSONE 20 MG TAB PO SCH (08:02)
[2023-09-16] MEDS: INSULIN ASPART PER UNIT CHARGE SC SCH (09:20)
--- NOTE | 2023-09-16 13:36 | Discharge Summary ---
Discharge Summary Date of Service September 16, 2023 Notes For Next Care Provider admitted with COPD exacerbationtreated with nebulizers IV steroids and antibiotics. Continue on steroid taper and finish course of doxycycline. Suspect living environment is contributing, patient also should quit smoking. Medication Changes From Visit Added hypertonic saline nebs Steroid taper Finish course of doxycycline continue Mucinex and Flonase Inhalers per patient request Admission HPI Per Admitting Provider Chief Complaint: SOB Primary Care Provider: Radha Barboza Janae Monzon is 63yo female with multiple medical comorbidities including COPD on supplemental O2 2L NC HS, ongoing tobacco use causing recurrent COPD exacerbations, HFpEF, DM, prior PE on Lovenox, obesity hypoventilation syndrome, opioid dependence (on Suboxone), DMII, and anxiety who presented to the [facility] ED on 09/11/23 due to acute on chronic SOB which began at approximately 0300 today. Shewas noted to be hypoxic at 87% on RA (despite being chronically oxygen dependent), respirations of 27, but otherwise stable. Labs were significant for a leukocytosis of 15 with neutrophil predominance of 11, CBC consistent with hemoconcentration, VBG pH of 7.44 with pCO2 of 58, and pO2 WNL, chloride of 92, potassium of 3.4, initial high sen trop of 29. CXR was read as negative for acute findings. Prior to admission the patient was given 2 albuterol nebulizer treatments, a levalbuterol treatment, 0.5 mg IV Ativan, 1gm Iv mag-sulfate, and 60 mg Iv methylprednisolone. At the time of the exam the patient was sitting in bed in no acute distress. States that she started to develop worsening SOB at the beginning of the week. Symptoms progressed to the point that she could not speak in complete sentences this am. She called her PCP who recommended she come to the ED. Still smoking "a few" cigarettes daily, knows she needs to quit. Has not been able to smoke the past 2 days due to her symptoms. Has been working on weaning down her Suboxone dose. She is currently taking 8 mg SL in the am and 4 mg SL in the afternoon this week. Her symptoms have improved slightly since arrival. She is a full code. Denies recent fever, chills, chest pain, hemoptysis, and pain, nausea, vomiting, diarrhea, dysuria, hematuria, melena, LE swelling and recent trauma. Please refer to Dr. Linton's attestation for any changes to the treatment plan Principal Dx & Hospital Course #1 = Principal Diagnosis (1) Acute exacerbation of chronic obstructive pulmonary disease: - Initially requiring 2L of supplemental oxygen but has since been weaned to room air w/ sat of 92% - CXR negative for focal consolidations or fluid - Low suspicion for PE at this time as she has been compliant with Lovenox for pulmonary embolism identified in 2019, has been hemodynamically stable, and is without pleuritic chest pain - PFTs from 08/2022 with restrictive lung disease. Target SpO2 >90% - CRP negative - continue course of doxycycline - methylprednisolone transitioned to p.o. prednisone - continue taper at discharge - continue home inhalers and prn nebs - add hypertonic saline nebs - continue flutter valve, IS - continue Robitussin and Flonase Continue to stress smoking cessation. She is congratulated for reducing intake to 1-3 cigarettes daily - F/U with Pulmonary in [place] scheduled for 09/2023 (2) Hypokalemia: - On KCl 40meq BID chronically, give additional dose of 40 meq 09/11 (making 3 doses on 09/11) improved, potassium 3.6 (3) Opiate dependence: Chronic/stable - Continue decreased Suboxone dose: 8 mg SL in the am and 4 mg SL in the afternoon - Continue to encourage further weaning of Suboxone (4) Heart failure with preserved ejection fraction: Chronic/stable - patient reports has been much more stable since starting metolazone - Continue BID Bumex with metolazone 3 x weekly (5) Elevated troponin: Acute/stable - Initial high sen trop peaked at 29 and downtrended to 22 - Likely due to demand - Recent echo in July 2023 without any new WMA (6) Diabetes: Continue home regimen at discharged - patient states she has struggled with highs and lows while on steroids previously. 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 ondansetron HCl 4 mg tablet 4 mg PO Q8H PRN NAUSEA/VOMITING 05/14/22 09/11/23 History quetiapine 200 mg tablet 200 mg PO HS 05/14/22 09/11/23 History insulin glargine 100 unit/mL (3 60 unit subcut QAM 06/21/22 09/11/23 History mL) subcutaneous pen ipratropium bromide 0.02 % 3 ml continuous nebulization QID 01/16/23 09/11/23 History solution for inhalation levalbuterol HCl 1.25 mg/3 mL 1.25 mg inhalation TID PRN 01/16/23 09/11/23 History solution for nebulization Shortness Of Breath Or Wheezing bumetanide 2 mg tablet 4 mg PO BID 03/02/23 09/11/23 History enoxaparin 150 mg/mL subcutaneous 150 mg subcut QAM 05/07/23 09/11/23 History syringe insulin aspart U-100 100 unit/mL 10 unit subcut AC 05/07/23 09/11/23 History (3 mL) subcutaneous pen (Novolog FlexPen U-100 Insulin aspart) metolazone 5 mg tablet 5 mg PO 3XWK 07/28/23 09/11/23 History alprazolam 0.5 mg tablet 0.5 mg PO TID #14 tabs 08/02/23 09/11/23 Rx prednisone 10 mg tablet 0 mg PO DIRECTED PRN flare ups 08/16/23 09/11/23 History potassium chloride 20 mEq 40 meq (2 x 20 mEq) PO BID #120 08/18/23 09/11/23 Rx tablet,extended release(part/cryst) tabs albuterol sulfate 90 mcg/actuation 2 puff inhalation UD PRN Shortness 08/30/23 09/11/23 History aerosol inhaler Of Breath Or Wheezing buprenorphine 8 mg-naloxone 2 mg 0.5 film sublingual QPM 09/11/23 09/11/23 History sublingual film guaifenesin 600 mg tablet, 600 mg PO Q12 PRN Congestion 09/11/23 09/11/23 History extended release 12 hr (Mucinex) doxycycline hyclate 100 mg capsule 100 mg PO BID 3 days #6 caps 09/15/23 Rx fluticasone propionate 50 1 spray intranasal BID nasal 09/15/23 09/11/23 Rx mcg/actuation nasal congestion #0 mL spray,suspension (Flonase Allergy Relief) prednisone 10 mg tablet See Taper PO DIRECTED #40 tabs 09/15/23 Rx fluticasone fur. 200 mcg-umeclid 1 ea inhalation QAM #60 ea 09/16/23 Rx 62.5 mcg-vilant 25 mcg inhalat.powder (Trelegy Ellipta) levalbuterol tartrate 45 2 puff inhalation Q4 PRN WHEEZE 09/16/23 Rx mcg/actuation aerosol inhaler #15 grams sodium chloride 7 % for 4 ml NEB BIDR #120 mL 09/16/23 Rx nebulization Hospital Stay Data Consultations 09/11/23 14:26 ED Decision to Admit Stat Diagnostic Imagining Performed Chest X-Ray 09/11/23 09:44 XR chest 1V portable HISTORY: 63 years-old Female sob acute shortness of breath COMPARISON: 08/30/2023 TECHNIQUE: AP view of the chest FINDINGS: Cardiac silhouette is enlarged. Mild chronic interstitial coarsening. No pneumothorax, pleural effusion or airspace consolidation. The bones appear intact. IMPRESSION: No acute process. ACT 112: Negative or not required by law. The above report was generated using voice recognition software. It may contain grammatical, syntax or spelling errors. Electronically signed by: Avi Leon M.D. 09/11/2023 10:32 AM Pending Results Patient Have Any Pending Studies at Discharge: No Discharge Instructions Given to Patient (Per Discharging Provider) Ms. Monzon, Marquez were hospitalized after a COPD exacerbation. This was treated with nebulizer treatments, IV steroids and antibiotics. You will continue on a prednisone taper and oral antibiotics (for 3 days). Continue your home inhalers. Prednisone: 40mg x 4 days 30mg x 4 days 20mg x 4 days 10mg x 4 days I've also added hypertonic saline nebs that you can use twice a day. Continue the trelegy ellipita every morning. Use the ipratropium neb 4 times a day as prescribed. You can use the levalbuterol nebulizer treatment up to 3 times a day - please use when you feel your breathing is worsening. Recommend using your incentive spirometer and flutter valve (plastic breathing devices) every morning and more additional times throughout the day. Continue taking the mucinex and flonase daily. Could also consider any over the counter allergy medicine. Your eosinophil levels have been normal every time they have been checked. Try to avoid sleeping with the windows open and going outside when the pollen count is high (this is something you can find on most weather apps). Consider an air purifier in your bedroom. If you have to keep the windows open - encourage frequent vacuuming to remove pollen and dander. Recommend smoking cessation. Activity: You can do normal everyday activities as your body allows. Take rest breaks if you feel tired. Do not overexert. Stop activity if you have pain, shortness of breath or feel dizzy. Follow-up appointments: Make an appointment with your primary care physician within one week of discharge. A copy of this summary will be sent to them. Every time you see your primary care physician, or any other doctor, bring your medication list, and a list of questions. CONTACT YOUR PRIMARY CARE PROVIDER if you experience any of the following: Shortness of breath or difficulty breathing Fevers or chills Feeling tired with normal activity or experiencing dizziness or fainting Difficulty following your treatment plan, or difficulty taking medications CALL 911 OR GO TO THE EMERGENCY DEPARTMENT if you experience any of the following: Severe abdominal pain or nausea/vomiting Severe chest pain, or chest pain that radiates (moves) to your jaw or arm Sudden, severe shortness of breath or difficulty breathing Thank you for allowing us to participate in your care. Total Time Total Time Spent Total Time Spent (In Minutes): Time spend day of discharge 40 minutes including direct patient care, medication reconciliation, documentation, review of labs and images, and coordination of care. Supervising Physician Co-Signing Physician Notes PA Supervision Note: I personally saw and examined the patient. I verified all rosario points and agree with YELENA Burns with the following exceptions and/or additions: S-patient still quite anxious but feels ready to return home. She feels like it is likely she will come back due to pollens in the air and being at a higher elevation than what she is accustomed to when she lived in [place]. She has a lot of stress at home living with her sister that she does not get along with. O- Vitals reviewed Gen: AAOx3, NAD HEENT: Anicteric sclerae, EOMI CV: RRR no mgr nl S1S2 Pulm: CTAB no wcr A/K-84-alim-old female here with COPD exacerbation, chronic anxiety contributing Stable for discharge to home high risk for readmission Coding Level of Care Code 57954 INP/OBS DISCH >30 MIN Diagnoses Acute exacerbation of chronic obstructive pulmonary disease J44.1 Hypokalemia E87.6 Opioid dependence in remission F11.21 Substance use status: in remission Chronic heart failure with preserved ejection fraction I50.32 Heart failure chronicity: chronic Elevated troponin R79.89 Type 2 diabetes mellitus without complication, with long-term current use of insulin E11.9; Z79.4 Diabetes mellitus complication status: without complication Diabetes mellitus director long term care insulin use: with director long term care use Diabetes mellitus type: type 2 Tobacco abuse Z72.0 Multiple myeloma C90.00 Multiple myeloma remission status: unspecified
== END 2023-09-16 15:14 | disposition home or self-care (01) | DRG 191 ==
LOC: ED 09:29 → SUATTDRO 14:20 → 2N 14:20

== ENCOUNTER 2023-09-25 09:59 | Inpatient (IN) ==
[2023-09-25 10:50] LABS: Basophils # (auto) 0.03 K/uL (0.00-0.20); Basophils % (auto) 0.2 %; Eosinophils # (auto) 0.02 K/uL (0.00-0.50); Eosinophils % (auto) 0.1 %; Hematocrit (blood only) 47.1 % (37.0-47.0); Hemoglobin 15.2 g/dl (12.0-16.0); Immature Granulocytes # (auto) 0.11 K/uL (0.01-0.20); Immature Granulocytes % (auto) 0.8 %; Lymphocytes # (auto) 1.28 K/uL (1.20-3.40); Lymphocytes % (auto) 9.2 %; Mean Corpuscular Hemoglobin 26.3 pg (25.0-34.0); Mean Corpuscular Hgb Conc 32.3 g/dL (32.0-36.0); Mean Corpuscular Volume 81.3 fL (80.0-100.0); Mean Platelet Volume 9.7 fL (9.4-12.4); Monocytes # (auto) 0.21 K/uL (0.11-0.59); Monocytes % (auto) 1.5 %; Neutrophils # (auto) 12.31 K/uL (1.40-6.50); Neutrophils % (auto) 88.2 %; Platelet Count 331 K/uL (130-400); RDW Coefficient of Variation 17.8 % (11.5-14.5); RDW Standard Deviation 49.4 fL (36.4-46.3); Red Blood Count 5.79 M/uL (4.20-5.40); White Blood Count 13.96 K/ul (4.8-10.8)
[2023-09-25 11:06] LABS: Albumin Globulin Ratio 1.5 (0.9-2); Albumin Level 4.3 gm/dl (3.4-5.0); BUN Creatinine Ratio 33.3 (10-20); Bilirubin,Total 0.3 mg/dl (0.2-1.0); Calcium 9.1 mg/dl (8.6-10.3); Creatinine Clr Calc Pharmacy 69.5 ml/min; Est GFR (African American) 73.5 ml/min; Est GFR (Non-African American) 63.4 ml/min; Globulin 2.9 gm/dl (2.5-4.0); Potassium 3.4 mmol/L (3.5-5.1); Total Protein 7.2 gm/dl (6.0-8.3)
[2023-09-25 11:12] LABS: Troponin I High Sensitivity 21.2 pg/ml (0-14)
[2023-09-25 11:17] LABS: INR 0.9 (0.9-1.1); Partial Thromboplastin Ratio 0.9; Partial Thromboplastin Time 23 Seconds (21-31); Prothrombin Time 10.3 Seconds (9.0-12.0)
--- NOTE | 2023-09-25 11:42 | Emergency Department Note ---
Impression & Plan CHF exacerbation ED Provider Note NAME: LIANNE SAMUEL AGE: 63 SEX: F : 1960 ARRIVES VIA: Walk-In INFORMANT: Patient, ED PROVIDER(S): Tin Brown MD CHIEF COMPLAINT: Shortness of breath, swelling HPI: This is a 63-year-old female with history of COPD, PE on Lovenox, multiple myeloma presenting for shortness of breath. Patient states that she has had swelling in her legs, hands which she states is similar to CHF. She notes she is on a diuretic 3 times a week for symptoms which have improved her symptoms previously. She notes with the past 2 to 3 days she has had exertional dyspnea and difficulty with her home activities. She called her primary care office who advised her to come here for evaluation. ROS: See above HPI for pertinent positives & negatives. A total of 10 systems reviewed and were otherwise negative. PHYSICAL EXAMINATION: General: resting comfortably in no acute distress Head: Normocephalic and atraumatic Eyes: Normal inspection, extraocular muscles intact Ear, nose, throat: Normal external exam Neck: Normal range of motion Respiratory: lungs clear to auscultation bilaterally Cardiovascular: Regular rate/rhythm, no murmur GI: soft, nontender, no guarding or rebound Extremities: nontender, moves all extremities Neuro: The patient awake and alert, appropriately conversive, no focal deficits, symmetric faces Skin: Warm, dry, and intact MEDICAL DECISION MAKING: This is 63-year-old female with history of COPD, PE, multiple myeloma presenting for shortness of breath. Consider CHF, pneumonia, PE clinically. -ECG independently interpreted by me with normal sinus rhythm, rate of 99, normal axis, normal HI, normal QRS, normal QTc, no ST segment elevations consistent with STEMI criteria -Chest Xray independently interpreted by me showing no pneumothorax, focal opacity, or pleural effusions. -Blood work reviewed showing leukocytosis to 13.96, otherwise D-dimer is negative. Electrolytes generally within normal limits. Troponin is slightly elevated over 20 with BNP of 74 -Currently patient appears well with reassuring workup however upon ambulation she gets significantly tachypneic to the point where she is having to rest. She is not Hypoxic but is tachycardic. -Discussed with patient her options including admission versus discharge. She states that she is in somewhat distress at home that she is unable to do due to activities. Will admit for further workup. Discussed with Dr. Gibson for admission. Differential diagnosis: See above ER treatment provided: See below Diagnostics interpreted by me: ECG: None Cardiac Monitoring: An order was placed for continuous cardiac monitoring. The monitor shows a rate of 93 with sinus rhythm. Laboratory studies: As stated above and show below. Imaging studies: See below. Past Med/Surg History Problem List (Updated 09/25/23 @ 18:10 by Tin Brown MD) CHF exacerbation (Acute) Muscle cramps Moderate persistent asthma Constipation History of pulmonary embolism Obesity hypoventilation syndrome Chronic anticoagulation Acute bronchitis Pulmonary vascular congestion Acute on chronic respiratory failure with hypoxia (Acute) COPD exacerbation (Acute) Right knee pain Nasal fracture Rib fractures (Acute) COPD (chronic obstructive pulmonary disease) (Acute) Medical History (Updated 09/25/23 @ 18:10 by Tin Brown MD) Acute exacerbation of chronic obstructive pulmonary disease Heart failure with preserved ejection fraction Hypokalemia Tobacco abuse Opiate dependence Dyspnea Diabetes Multiple myeloma Last chemotherapy 2017 Follows with medical oncology in [facility] Acute heart failure with preserved ejection fraction (HFpEF) Asthma Surgical History No pertinent past surgical history Social History Smoking Status: Former smoker Tobacco Type: Cigarettes Cigarettes Per Day: 1 cigarette per day; Second Hand Exposure: Yes; Do You Dip or Chew Tobacco: No; Hx Alcohol Use: No Hx Substance Use: Yes Last Used Substance: Unknown Preferred Language: Georgian Communication Ability: Effective Radiologic Therapist Required: No Beliefs That Will Affect Care: None Current Living Situation: Family Current Living Situation Comment: lives with sister temporarily Feels Safe at Home: Yes Assistive Devices: Oxygen - at Night Allergies Allergies Allergy/AdvReac Type Severity Reaction Status Date / Time codeine Allergy Severe Anaphylaxis Verified 09/25/23 16:53 Iodinated Contrast Media Allergy Severe Anaphylaxis Verified 09/25/23 16:53 shellfish derived Allergy Severe Anaphylaxis Verified 09/25/23 16:53 tramadol Allergy Intermediate ITCHINESS Verified 09/25/23 16:53 iohexol Allergy Unknown CAN'T Verified 09/25/23 16:53 REMEMBER diphenhydramine AdvReac Severe Anxiety Verified 05/31/24 16:53 [From Benadryl] montelukast [From Singulair] AdvReac Intermediate Anxiety Verified 09/25/23 16:53 promethazine AdvReac Intermediate Anxiety Verified 09/25/23 16:53 Home Meds Home Medications Medication Instructions Recorded Confirmed buprenorphine 8 mg-naloxone 2 mg 1 film sublingual QAM 05/14/22 09/25/23 sublingual film nystatin 100,000 unit/gram topical 1 applic topical BID PRN UNDER 05/14/22 09/25/23 powder BREASTS NEEDED. ondansetron HCl 4 mg tablet 4 mg PO Q8H PRN NAUSEA/VOMITING 05/14/22 09/25/23 quetiapine 200 mg tablet 200 mg PO HS 05/14/22 09/25/23 insulin glargine 100 unit/mL (3 60 unit subcut QAM 06/21/22 09/25/23 mL) subcutaneous pen ipratropium bromide 0.02 % 3 ml continuous nebulization QID 01/16/23 09/25/23 solution for inhalation levalbuterol HCl 1.25 mg/3 mL 1.25 mg inhalation TID PRN 01/16/23 09/25/23 solution for nebulization Shortness Of Breath Or Wheezing bumetanide 2 mg tablet 4 mg PO BID 03/02/23 09/25/23 enoxaparin 150 mg/mL subcutaneous 150 mg subcut QAM 05/07/23 09/25/23 syringe insulin aspart U-100 100 unit/mL 10 unit subcut AC 05/07/23 09/25/23 (3 mL) subcutaneous pen (Novolog FlexPen U-100 Insulin aspart) metolazone 5 mg tablet 5 mg PO 3XWK 07/28/23 09/25/23 prednisone 10 mg tablet 0 mg PO DIRECTED PRN flare ups 08/16/23 09/25/23 albuterol sulfate 90 mcg/actuation 2 puff inhalation UD PRN Shortness 08/30/23 09/25/23 aerosol inhaler Of Breath Or Wheezing buprenorphine 8 mg-naloxone 2 mg 0.5 film sublingual QPM 09/11/23 09/25/23 sublingual film guaifenesin 600 mg tablet, 600 mg PO Q12 PRN Congestion 09/11/23 09/25/23 extended release 12 hr (Mucinex) Previous Rx's Medication Instructions Recorded alprazolam 0.5 mg tablet 0.5 mg PO TID #14 tabs 08/02/23 potassium chloride 20 mEq 40 meq (2 x 20 mEq) PO BID #120 08/18/23 tablet,extended release(part/cryst) tabs fluticasone propionate 50 1 spray intranasal BID nasal 09/15/23 mcg/actuation nasal congestion #0 mL spray,suspension (Flonase Allergy Relief) prednisone 10 mg tablet See Taper PO DIRECTED #40 tabs 09/15/23 fluticasone fur. 200 mcg-umeclid 1 ea inhalation QAM #60 ea 09/16/23 62.5 mcg-vilant 25 mcg inhalat.powder (Trelegy Ellipta) levalbuterol tartrate 45 2 puff inhalation Q4 PRN WHEEZE 09/16/23 mcg/actuation aerosol inhaler #15 grams sodium chloride 7 % for 4 ml NEB BIDR #120 mL 09/16/23 nebulization Results & Data (ED) Vital Signs Vital Signs - 24 hr 09/25/23 10:09 09/25/23 10:28 09/25/23 10:29 Temperature 36.5 C Temperature Source Oral Pulse Rate 106 H 97 H 98 H Pulse Rate [Left Finger] Pulse Rate from SpO2 Sensor 97 H Pulse Rhythm Regular Pulse Strength Normal Respiratory Rate 26 H 22 Respiratory Effort / Characteristics Labored Retracting Short of Breath Respiratory Depth Deep Respiratory Pattern Irregular Blood Pressure 126/104 H Blood Pressure [Left Arm] Blood Pressure Mean 111 Blood Pressure Mean [Left Arm] Blood Pressure Position Sitting Pulse Oximetry 92 Oxygen Delivery Method Room Air Oxygen Flow Rate Sepsis Recent Fever Within 48 Hours No Sepsis New/Unexplained Change in Mental Status No Sepsis Action Taken by Nursing No Action Required 09/25/23 10:30 09/25/23 10:40 09/25/23 11:00 Temperature Temperature Source Pulse Rate 97 H Pulse Rate [Left Finger] 95 H Pulse Rate from SpO2 Sensor 97 H Pulse Rhythm Pulse Strength Respiratory Rate 14 26 H Respiratory Effort / Characteristics Respiratory Depth Respiratory Pattern Blood Pressure Blood Pressure [Left Arm] 108/78 Blood Pressure Mean Blood Pressure Mean [Left Arm] 88 Blood Pressure Position Pulse Oximetry 92 92 92 Oxygen Delivery Method Room Air Room Air Oxygen Flow Rate Sepsis Recent Fever Within 48 Hours Sepsis New/Unexplained Change in Mental Status Sepsis Action Taken by Nursing 09/25/23 12:26 09/25/23 12:36 09/25/23 13:00 Temperature Temperature Source Pulse Rate 96 H 94 H 94 H Pulse Rate [Left Finger] Pulse Rate from SpO2 Sensor 96 H 94 H 94 H Pulse Rhythm Pulse Strength Respiratory Rate 17 15 17 Respiratory Effort / Characteristics Respiratory Depth Respiratory Pattern Blood Pressure Blood Pressure [Left Arm] Blood Pressure Mean Blood Pressure Mean [Left Arm] Blood Pressure Position Pulse Oximetry 91 92 95 Oxygen Delivery Method Oxygen Flow Rate Sepsis Recent Fever Within 48 Hours Sepsis New/Unexplained Change in Mental Status Sepsis Action Taken by Nursing 09/25/23 13:32 09/25/23 13:33 09/25/23 14:06 Temperature Temperature Source Pulse Rate 96 H 98 H 95 H Pulse Rate [Left Finger] Pulse Rate from SpO2 Sensor 98 H 95 H Pulse Rhythm Regular Pulse Strength Respiratory Rate 22 15 23 Respiratory Effort / Characteristics Respiratory Depth Respiratory Pattern Blood Pressure Blood Pressure [Left Arm] Blood Pressure Mean Blood Pressure Mean [Left Arm] Blood Pressure Position Pulse Oximetry 88 L 94 Oxygen Delivery Method Room Air Oxygen Flow Rate Sepsis Recent Fever Within 48 Hours Sepsis New/Unexplained Change in Mental Status Sepsis Action Taken by Nursing 09/25/23 14:33 09/25/23 15:00 09/25/23 15:22 Temperature Temperature Source Pulse Rate 98 H 91 H 89 Pulse Rate [Left Finger] Pulse Rate from SpO2 Sensor 99 H 91 H Pulse Rhythm Pulse Strength Respiratory Rate 27 H 17 Respiratory Effort / Characteristics Respiratory Depth Respiratory Pattern Blood Pressure Blood Pressure [Left Arm] Blood Pressure Mean Blood Pressure Mean [Left Arm] Blood Pressure Position Pulse Oximetry 95 Oxygen Delivery Method Room Air Oxygen Flow Rate Sepsis Recent Fever Within 48 Hours Sepsis New/Unexplained Change in Mental Status Sepsis Action Taken by Nursing 09/25/23 15:42 09/25/23 16:03 Temperature Temperature Source Pulse Rate 94 H 93 H Pulse Rate [Left Finger] Pulse Rate from SpO2 Sensor 93 H Pulse Rhythm Pulse Strength Respiratory Rate 16 19 Respiratory Effort / Characteristics Respiratory Depth Respiratory Pattern Blood Pressure Blood Pressure [Left Arm] Blood Pressure Mean Blood Pressure Mean [Left Arm] Blood Pressure Position Pulse Oximetry 89 L 99 Oxygen Delivery Method Room Air Nasal Cannula Oxygen Flow Rate 3 Sepsis Recent Fever Within 48 Hours Sepsis New/Unexplained Change in Mental Status Sepsis Action Taken by Nursing Laboratory Data 09/25/23 10:22 09/25/23 10:22 Lab Results 09/25/23 09/25/23 09/25/23 Range/Units 10:22 11:45 12:20 WBC 13.96 H (4.8-10.8) K/ul RBC 5.79 H (4.20-5.40) M/uL Hgb 15.2 (12.0-16.0) g/dl Hct 47.1 H (37.0-47.0) % MCV 81.3 (80.0-100.0) fL MCH 26.3 (25.0-34.0) pg MCHC 32.3 (32.0-36.0) g/dL RDW Std Deviation 49.4 H (36.4-46.3) fL RDW Coeff of [place]ick 17.8 H (11.5-14.5) % Plt Count 331 (130-400) K/uL MPV 9.7 (9.4-12.4) fL Immature Gran % (Auto) 0.8 % Neut % (Auto) 88.2 % Lymph % (Auto) 9.2 % [place] % (Auto) 1.5 % Eos % (Auto) 0.1 % Baso % (Auto) 0.2 % Neut # (Auto) 12.31 H (1.40-6.50) K/uL Lymph # (Auto) 1.28 (1.20-3.40) K/uL [place] # (Auto) 0.21 (0.11-0.59) K/uL Eos # (Auto) 0.02 (0.00-0.50) K/uL Baso # (Auto) 0.03 (0.00-0.20) K/uL Immature Gran # (Auto) 0.11 (0.01-0.20) K/uL PT 10.3 (9.0-12.0) Seconds INR 0.9 (0.9-1.1) APTT 23 (21-31) Seconds PTT Ratio 0.9 D-Dimer 340 (0-500) ug/L FEU Sodium 140 (136-145) mmol/L Potassium 3.4 L (3.5-5.1) mmol/L Chloride 92 L (98-107) mmol/L Carbon Dioxide 37 H (21-32) mmol/L Anion Gap 11 (3-11) BUN 32 H (6-23) mg/dl Creatinine 0.96 (0.6-1.2) mg/dl Est Cr Clr Drug Dosing 69.5 ml/min Est GFR ( Amer) 73.5 ml/min Est GFR (Non-Af Amer) 63.4 ml/min BUN/Creatinine Ratio 33.3 H (10-20) Glucose 228 H (70-99(Fasting)) mg/dl Calcium 9.1 (8.6-10.3) mg/dl Total Bilirubin 0.3 (0.2-1.0) mg/dl AST 13 (13-39) U/L ALT 19 (7-52) U/L Alkaline Phosphatase 109 H (34-104) U/L Troponin I High Sens 21.2 H 16.9 H D (0-14) pg/ml C-Reactive Protein 1.05 H (0-0.5) mg/dl B-Natriuretic Peptide 74 (0-100) pg/ml Total Protein 7.2 (6.0-8.3) gm/dl Albumin 4.3 (3.4-5.0) gm/dl Globulin 2.9 (2.5-4.0) gm/dl Albumin/Globulin Ratio 1.5 (0.9-2) Procalcitonin 0.03 (0-0.5) ng/ml Adenovirus (PCR) Not Detected (NotDetected) B. pertussis DNA (PCR) Not Detected (NotDetected) B.parapertussis DNA PCR Not Detected (NotDetected) C. pneumoniae DNA (PCR) Not Detected (NotDetected) Coronavirus OC43 (PCR) Not Detected (NotDetected) Coronavirus HKU1 (PCR) Not Detected (NotDetected) Coronavirus 229E (PCR) Not Detected (NotDetected) SARS-CoV-2 (PCR) Not Detected (NotDetected) Coronavirus NL63 (PCR) Not Detected (NotDetected) Human Metapneumovir PCR Not Detected (NotDetected) Influenza Type A (PCR) Not Detected (NotDetected) Influenza Type B (PCR) Not Detected (NotDetected) M. pneumoniae (PCR) Not Detected (NotDetected) Parainfluenza 1 (PCR) Not Detected (NotDetected) Parainfluenza 2 (PCR) Not Detected (NotDetected) Parainfluenza 3 (PCR) Not Detected (NotDetected) Parainfluenza 4 (PCR) Not Detected (NotDetected) RSV (PCR) Not Detected (NotDetected) Entero/Rhino (PCR) Not Detected (NotDetected) Imaging Data Radiologist's Impression: Chest X-Ray 09/25/23 10:16 XR chest 1V portable HISTORY: Chest pain, nonspecific COMPARISON: Chest 09/11/2023. FINDINGS: There are low lung volumes. The patient's head partially obscures the lung apices. No definite pneumothorax. No pleural effusions. The heart is normal in size. Mild chronic interstitial thickening persists. No new focal lung consolidations to suggest a pneumonia. No evidence for pulmonary edema. Old, healed right-sided rib fractures. IMPRESSION: Low lung volumes with mild chronic interstitial thickening. Otherwise, no acute process within the chest. ACT 112: Negative or not required by law. Electronically signed by: Chester Salas M.D. 09/25/2023 11:55 AM Discharge Plan Visit Data Chief Complaint: Shortness of Breath/Dyspnea Stated Complaint: SOB, FOOT/ANKLE SWELLING, REF BY DOC ED Provider: Tin Brown Discharge Problem: CHF exacerbation Forms Stand Alone Forms: My [facility] [employer] Prescriptions Prescriptions: No Action ondansetron HCl 4 mg Tablet 4 mg PO Q8H PRN (Reason: NAUSEA/VOMITING) quetiapine 200 mg tablet 200 mg PO HS nystatin 100,000 unit/gram Powder 1 applic TOPICAL BID PRN (Reason: UNDER BREASTS NEEDED.) buprenorphine-naloxone 8-2 mg film 1 film sublingual QAM insulin glargine 100 unit/mL (3 mL) insulin pen 60 unit SUBCUT QAM bumetanide 2 mg tablet 4 mg PO BID Rx Instructions: morning and lunch enoxaparin 150 mg/mL syringe 150 mg subcut QAM insulin aspart U-100 [Novolog FlexPen U-100 Insulin] 100 unit/mL (3 mL) insulin pen 10 unit SUBCUT AC Rx Instructions: Plus sliding scale levalbuterol HCl 1.25 mg/3 mL solution for nebulization 1.25 mg INHALATION TID PRN (Reason: Shortness Of Breath Or Wheezing) ipratropium bromide 0.02 % solution 3 ml continuous nebulization QID metolazone 5 mg tablet 5 mg PO 3XWK Rx Instructions: 5 mg orally on Mondays, Wednesdays, and Fridays alprazolam 0.5 mg tablet 0.5 mg PO TID Qty: 14 0RF Rx Instructions: pt requesting to take same time as suboxone albuterol sulfate 90 mcg/actuation HFA aerosol inhaler 2 puff INHALATION UD PRN (Reason: Shortness Of Breath Or Wheezing) prednisone 10 mg tablet 0 mg PO DIRECTED PRN (Reason: flare ups) Hold Instructions: Resume on 10/01/23. Taper: Taper, Blank 40 mg DAILY for 1 Day 20 mg DAILY for 2 Days 10 mg DAILY for 1 Day 5 mg DAILY for 2 Days Rx Instructions: see taper instructions potassium chloride 20 mEq Tablet,Er Particles/Crystals 40 meq PO BID Qty: 120 0RF buprenorphine-naloxone 8-2 mg film 0.5 film sublingual QPM Rx Instructions: Is tapering down guaifenesin [Mucinex] 600 mg tablet extended release 12hr 600 mg PO Q12 PRN (Reason: Congestion) Rx Instructions: OTC prednisone 10 mg tablet See Taper PO DIRECTED Qty: 40 0RF Taper: Taper, Blank 40 mg DAILY IN THE MORNING for 4 Days 30 mg DAILY IN THE MORNING for 4 Days 20 mg DAILY IN THE MORNING for 4 Days 10 mg DAILY IN THE MORNING for 4 Days Rx Instructions: STARTED 09/15/23---see taper instructions fluticasone propionate [Flonase Allergy Relief] 50 mcg/actuation spray,suspension 1 spray intranasal BID Qty: 0 0RF Rx Instructions: administer into each nostril Trelegy Ellipta 200-62.5-25 mcg blister with device 1 ea INHALATION QAM Qty: 60 0RF sodium chloride 7 % Solution For Nebulization 4 ml NEB BIDR Qty: 120 0RF levalbuterol tartrate 45 mcg/actuation HFA aerosol inhaler 2 puff INHALATION Q4 PRN (Reason: WHEEZE) Qty: 15 0RF Referrals Referrals: Radha Barboza PA-C [Primary Care Provider] -
--- NOTE | 2023-09-25 11:56 | XRay Report ---
XR chest 1V portable HISTORY: Chest pain, nonspecific COMPARISON: Chest 09/11/2023. FINDINGS: There are low lung volumes. The patient's head partially obscures the lung apices. No defin ite pneumothorax. No pleural effusions. The heart is normal in size. Mild chronic interstitial thicke liliya persists. No new focal lung consolidations to suggest a pneumonia. No evidence for pulmonary emiliano ma. Old, healed right-sided rib fractures. IMPRESSION: Low lung volumes with mild chronic interstitial thickening. Otherwise, no acute process within the est. ACT 112: Negative or not required by law. Electronically signed by: Chester Salas M.D. 09/25/2023 11:55 AM
--- NOTE | 2023-09-25 12:30 | Electrocardiogram Report ---
Test Reason : Blood Pressure : / mmHG Vent. 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
[2023-09-25 12:38] LABS: D Dimer 340 ug/L FEU (0-500)
[2023-09-25 12:57] LABS: Troponin I High Sensitivity 16.9 pg/ml (0-14)
[2023-09-25 13:04] LABS: Adenovirus PCR Not Detected (NotDetected); Bordetella parapertussis PCR Not Detected (NotDetected); Bordetella pertussis PCR Not Detected (NotDetected); Chlamydia pneumoniae PCR Not Detected (NotDetected); Coronavirus 229E PCR Not Detected (NotDetected); Coronavirus CoV-2 (COVID19)PCR Not Detected (NotDetected); Coronavirus HKU1 PCR Not Detected (NotDetected); Coronavirus NL63 PCR Not Detected (NotDetected); Coronavirus OC43PCR Not Detected (NotDetected); Human Metapneumovirus PCR Not Detected (NotDetected); Influenza A PCR Not Detected (NotDetected); Influenza B PCR Not Detected (NotDetected); Mycoplasma pneumoniae PCR Not Detected (NotDetected); Parainfluenza Virus 1 PCR Not Detected (NotDetected); Parainfluenza Virus 2 PCR Not Detected (NotDetected); Parainfluenza Virus 3 PCR Not Detected (NotDetected); Parainfluenza Virus 4 PCR Not Detected (NotDetected); Respiratory Syncytial VirusPCR Not Detected (NotDetected); Rhinovirus/Enterovirus PCR Not Detected (NotDetected)
[2023-09-25 15:27] LABS: C Reactive Protein 1.05 mg/dl (0-0.5)
[2023-09-25] MEDS ORDERED: GLUCOSE 40% GEL 15 GM TUBE PO PRN (15:45)
[2023-09-25] MEDS ORDERED: DEXTROSE 50% 50 ML SYRINGE IV PRN (15:45)
[2023-09-25] MEDS ORDERED: CARBOHYDRATES FOR HYPOGLYCEMIA PO PRN (15:45)
[2023-09-25] MEDS ORDERED: GLUCOSE 10 TAB/TUBE PO PRN (15:45)
[2023-09-25] MEDS ORDERED: PHARMACY GLYCEMIC MGMT CONSULT PRN (15:45)
[2023-09-25] MEDS ORDERED: GLUCAGON FOR INJ 1 MG VIAL SQ PRN (15:45)
--- NOTE | 2023-09-25 15:47 | History & Physical Report ---
Date of Service September 25, 2023 Assessment & Plan (1) COPD exacerbation: Plan: COPD exacerbation in a 63 year old female with shortness of breath. -admit to med/tele on pulse oximetry -Currently stable on room air. 94% -CXR negative. -IV Solu-Medrol 40mg daily -Continue LABA/LAMA, ICS -Doxycycline 100mg BID -Rocephin 1g daily -Consult pulmonology -flutter valve and incentive spirometry -AM labs - CBC, BMP (2) Heart failure with preserved ejection fraction: Plan: -symptoms related to pulmonary cause vs cardiac -Hold diuretics for remainder of today. -AM BMP tomorrow. Based on results, diuretics may be resumed. -BNP 09/25/2023: 74 (3) Diabetes: Plan: -Hemoglobin A1c 08/31/23 - 10.5 -glucose on admission 228 -Continue glargine 60 units subcu every morning and Novolog prior to meals -Goal 100-140 -pharmacy consulted -heart healthy, TII DM diet (4) Opiate dependence: Plan: -continue Suboxone (5) History of pulmonary embolism: Plan: -continue Lovenox therapeutic dosing (6) Muscle cramps: Plan: -potassium 3.4 -check magnesium History of Present Illness Chief Complaint: SOB Primary Care Provider: Radha Barboza This is a 63-year-old female with a past medical history including severe COPD, chronic tobacco use, opiate dependence, HFpEF, obesity hypoventilation syndrome, diabetes mellitus, chronic anticoagulation, and hypokalemia who presented to the ED on 09/25/2023 with a chief complaint of shortness of breath. Patient has had various hospital admissions recently for similar complaints. At time of encounter she was sitting upright in a chair, on room air, with an O2 sat of 94%. She states that about 3 days ago she started to notice worsening shortness of breath. She states that yesterday she went to the grocery store and developed more severe shortness of breath. It did not improve with her nebulizer and inhalers which is what prompted her to report to the ED. She admits to wheezing. She continues to smoke 1 cigarette per day in the morning. She has not followed up with any speciality providers following previous admissions as she plans to relocate home and continue continuity with her previous specialists. She does note noticeable improvement of her LE edema with her diuretic therapy, however was complaining of edema in her b/l hands. She also has been complaining of significant cramping in her b/l legs and hands over the last few days. She denies any fevers, chills, chest pain, palpitations, worsening cough. She denies any changes in sputum production. She reports no abdominal or urinary complaints. Allergies Allergy/AdvReac Type Severity Reaction Status Date / Time codeine Allergy Severe Anaphylaxis Verified 09/25/23 16:53 Iodinated Contrast Media Allergy Severe Anaphylaxis Verified 09/25/23 16:53 shellfish derived Allergy Severe Anaphylaxis Verified 09/25/23 16:53 tramadol Allergy Intermediate ITCHINESS Verified 09/25/23 16:53 iohexol Allergy Unknown CAN'T Verified 09/25/23 16:53 REMEMBER diphenhydramine AdvReac Severe Anxiety Verified 09/25/23 16:53 [From Benadryl] montelukast [From Singulair] AdvReac Intermediate Anxiety Verified 09/25/23 16:53 promethazine AdvReac Intermediate Anxiety Verified 09/25/23 16:53 Home Medications Medication Instructions Recorded Confirmed Type buprenorphine 8 mg-naloxone 2 mg 1 film sublingual QAM 05/14/22 09/25/23 History sublingual film nystatin 100,000 unit/gram topical 1 applic topical BID PRN UNDER 05/14/22 09/25/23 History powder BREASTS NEEDED. ondansetron HCl 4 mg tablet 4 mg PO Q8H PRN NAUSEA/VOMITING 05/14/22 09/25/23 History quetiapine 200 mg tablet 200 mg PO HS 05/14/22 09/25/23 History insulin glargine 100 unit/mL (3 60 unit subcut QAM 06/21/22 09/25/23 History mL) subcutaneous pen ipratropium bromide 0.02 % 3 ml continuous nebulization QID 01/16/23 09/25/23 History solution for inhalation levalbuterol HCl 1.25 mg/3 mL 1.25 mg inhalation TID PRN 01/16/23 09/25/23 History solution for nebulization Shortness Of Breath Or Wheezing bumetanide 2 mg tablet 4 mg PO BID 03/02/23 09/25/23 History enoxaparin 150 mg/mL subcutaneous 150 mg subcut QAM 05/07/23 09/25/23 History syringe insulin aspart U-100 100 unit/mL 10 unit subcut AC 05/07/23 09/25/23 History (3 mL) subcutaneous pen (Novolog FlexPen U-100 Insulin aspart) metolazone 5 mg tablet 5 mg PO 3XWK 07/28/23 09/25/23 History alprazolam 0.5 mg tablet 0.5 mg PO TID #14 tabs 08/02/23 09/25/23 Rx prednisone 10 mg tablet 0 mg PO DIRECTED PRN flare ups 08/16/23 09/25/23 History potassium chloride 20 mEq 40 meq (2 x 20 mEq) PO BID #120 08/18/23 09/25/23 Rx tablet,extended release(part/cryst) tabs albuterol sulfate 90 mcg/actuation 2 puff inhalation UD PRN Shortness 08/30/23 09/25/23 History aerosol inhaler Of Breath Or Wheezing buprenorphine 8 mg-naloxone 2 mg 0.5 film sublingual QPM 09/11/23 09/25/23 History sublingual film guaifenesin 600 mg tablet, 600 mg PO Q12 PRN Congestion 09/11/23 09/25/23 History extended release 12 hr (Mucinex) fluticasone propionate 50 1 spray intranasal BID nasal 09/15/23 09/25/23 Rx mcg/actuation nasal congestion #0 mL spray,suspension (Flonase Allergy Relief) prednisone 10 mg tablet See Taper PO DIRECTED #40 tabs 09/15/23 09/25/23 Rx fluticasone fur. 200 mcg-umeclid 1 ea inhalation QAM #60 ea 09/16/23 09/25/23 Rx 62.5 mcg-vilant 25 mcg inhalat.powder (Trelegy Ellipta) levalbuterol tartrate 45 2 puff inhalation Q4 PRN WHEEZE 09/16/23 09/25/23 Rx mcg/actuation aerosol inhaler #15 grams sodium chloride 7 % for 4 ml NEB BIDR #120 mL 09/16/23 09/25/23 Rx nebulization Past Med/Surg History Problem List (Updated 09/26/23 @ 12:06 by Jonnie Dan MD) Tobacco abuse counseling Chronic hypercapnic respiratory failure CHF exacerbation (Acute) Muscle cramps Moderate persistent asthma Constipation History of pulmonary embolism Obesity hypoventilation syndrome Chronic anticoagulation Acute bronchitis Pulmonary vascular congestion Acute on chronic respiratory failure with hypoxia (Acute) COPD exacerbation (Acute) Right knee pain Nasal fracture Rib fractures (Acute) COPD (chronic obstructive pulmonary disease) (Acute) Medical History (Updated 09/26/23 @ 12:06 by Jonnie Dan MD) Acute exacerbation of chronic obstructive pulmonary disease Heart failure with preserved ejection fraction Hypokalemia Tobacco abuse Opiate dependence Dyspnea Diabetes Multiple myeloma Last chemotherapy 2017 Follows with medical oncology in [facility] Acute heart failure with preserved ejection fraction (HFpEF) Asthma Surgical History No pertinent past surgical history Social History Smoking Status: Current every day smoker Tobacco Type: Cigarettes Cigarettes Per Day: 1 cigarette per day; Second Hand Exposure: Yes; Do You Dip or Chew Tobacco: No; Hx Alcohol Use: No Hx Substance Use: Yes Last Used Substance: Unknown Preferred Language: Martiniquais Communication Ability: Effective Toby Maker Required: No Beliefs That Will Affect Care: None Current Living Situation: Family Current Living Situation Comment: lives with sister temporarily Feels Safe at Home: Yes Safety Concerns: Feels Safe At This Time Assistive Devices: Denture - Upper, Denture - Lower, Glasses and Oxygen - at Night Review of Systems Constitutional: no fever and no body aches Eyes: no blind spots Ear, Nose, Mouth, Throat: no ear pain Respiratory: + cough Cardiovascular: + dyspnea, + dyspnea at rest and + dyspn ea on exertion; no chest pain Gastrointestinal: no abdominal pain Genitourinary: no dysuria Musculoskeletal: no back pain Integumentary: no acne Neurologic: no gait abnormality Psychiatric: + anxiety Endocrine: no fatigue Hematologic / Lymphatic: no easy bleeding Allergy / Immunological: no GI upset with certain foods Physical Exam Constitutional: WD/WN, vitals as above Eyes: PERRL, conjunctivae normal, anicteric sclerae ENMT: external ear and nose normal, oropharynx normal Respiratory: + labored breathing and symmetric chest movement expiratory wheezing noted throughout. Cardiovascular: RRR, no murmur, no edema Musculoskeletal: Head/Neck/Chest: normocephalic and head atraumatic b/l hand erythema and edema. Skin: no rashes, warm and dry Neurologic: PERRL, EOMI, accommodation nl, no face palsy, no dysarthria Psychiatric: A+Ox3, euthymic affect Results & Data Results & Data Vital Signs (Past 12 Hours) Vital Signs Temp Pulse Pulse Resp BP BP Pulse Ox 09/25/23 13:32 96 H 22 88 L 09/25/23 11:00 95 H 26 H 108/78 92 09/25/23 10:40 92 09/25/23 10:29 98 H 09/25/23 10:09 36.5 C 106 H 26 H 126/104 H 92 O2 Del Method 09/25/23 13:32 Room Air 09/25/23 11:00 Room Air 09/25/23 10:40 Room Air 09/25/23 10:29 09/25/23 10:09 Room Air Diagnostic Findings XR chest 1V portable COMPARISON: Chest 09/11/2023. FINDINGS: There are low lung volumes. The patient's head partially obscures the lung apices. No definite pneumothorax. No pleural effusions. The heart is normal in size. Mild chronic interstitial thickening persists. No new focal lung consolidations to suggest a pneumonia. No evidence for pulmonary edema. Old, healed right-sided rib fractures. IMPRESSION: Low lung volumes with mild chronic interstitial thickening. Otherwise, no acute process within the chest. PG Care Time/CCT Total # of Minutes Spent Total Time Spent with Patient: Total time spent is greater than 50% in coordination of care (as documented) at patient's floor/unit and/or counseling patient: Coding Level of Care Code 37757 INT INP/OBS CARE 3/75MIN Diagnoses COPD exacerbation J44.1 Chronic heart failure with preserved ejection fraction I50.32 Heart failure chronicity: chronic Type 2 diabetes mellitus without complication, with long-term current use of insulin E11.9; Z79.4 Diabetes mellitus complication status: without complication Diabetes mellitus penitentiary insulin use: with emt intermediate use Diabetes mellitus type: type 2 Opioid dependence in remission F11.21 Substance use status: in remission History of pulmonary embolism Z86.711 Muscle cramps R25.2 (2) Heart failure with preserved ejection fraction Heart failure chronicity: chronic Qualified Code(s): I50.32 - Chronic diastolic (congestive) heart failure (3) Diabetes Diabetes mellitus complication status: without complication Diabetes mellitus emt intermediate insulin use: with penitentiary use Diabetes mellitus type: type 2 Qualified Code(s): E11.9 - Type 2 diabetes mellitus without complications; 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
[2023-09-25] MEDS ORDERED: ALBUTEROL HFA 8 GM INHALER INH PRN (18:48)
[2023-09-25] MEDS ORDERED: guaiFENesin 600 MG TABCR PO PRN (18:48)
[2023-09-25] MEDS ORDERED: NYSTATIN POWDER 15GM BTL EXT PRN (18:48)
[2023-09-25] MEDS ORDERED: LEVALBUTEROL TARTRATE 15 GM HFA.AER.AD INH PRN (18:48)
[2023-09-25] MEDS: INSULIN ASPART PER UNIT CHARGE SC SCH (19:08)
[2023-09-25] MEDS: BUPRENORPHINE/NALOXONE 8/2 MG TAB SL SCH (20:53)
[2023-09-25] MEDS: metOLazone 2.5 MG TABLET PO SCH (20:53)
[2023-09-25] MEDS: FLUTICASONE PROPIONATE NA SPR 16 GM BTL NAE SCH (20:53)
[2023-09-25] MEDS: ALPRAZolam 0.5 MG TABLET PO SCH (20:53)
[2023-09-25] MEDS: QUEtiapine FUMARATE 200 MG TAB PO SCH (20:53)
[2023-09-25] MEDS: SODIUM CHLOR 7% 4 ML NEB NEB SCH (20:59)
[2023-09-26] MEDS: LEVALBUTEROL 1.25 MG/3 ML NEB INH PRN (01:58)
[2023-09-26 06:24] LABS: Hematocrit (blood only) 45.1 % (37.0-47.0); Hemoglobin 14.5 g/dl (12.0-16.0); Mean Corpuscular Hemoglobin 26.3 pg (25.0-34.0); Mean Corpuscular Hgb Conc 32.2 g/dL (32.0-36.0); Mean Corpuscular Volume 81.7 fL (80.0-100.0); Mean Platelet Volume 9.6 fL (9.4-12.4); Platelet Count 285 K/uL (130-400); RDW Coefficient of Variation 17.6 % (11.5-14.5); RDW Standard Deviation 49.4 fL (36.4-46.3); Red Blood Count 5.52 M/uL (4.20-5.40); White Blood Count 15.31 K/ul (4.8-10.8)
[2023-09-26 06:42] LABS: BUN Creatinine Ratio 36.6 (10-20); C Reactive Protein 0.95 mg/dl (0-0.5); Calcium 8.5 mg/dl (8.6-10.3); Creatinine Clr Calc Pharmacy 93.9 ml/min; Est GFR (African American) 105.8 ml/min; Est GFR (Non-African American) 91.3 ml/min; Potassium 2.7 mmol/L (3.5-5.1)
[2023-09-26] MEDS: ENOXAPARIN 150 MG/ML SYR SQ SCH (08:09)
[2023-09-26] MEDS: FLUTICASONE FUROATE 200MCG 14 PUFFS/INHALER INH SCH (08:10)
[2023-09-26] MEDS: UMECLIDINIUM/VILANTEROL 62.5/25MCG 7 PUFFS/INHALER INH SCH (08:10)
[2023-09-26] MEDS: BUPRENORPHINE/NALOXONE 8/2 MG TAB SL SCH (08:12)
[2023-09-26] MEDS: POTASSIUM CHLORIDE / WTR 10 MEQ/100 ML PLCT IV SCH (08:56)
[2023-09-26] MEDS: POTASSIUM CHLORIDE CRTAB 20 MEQ TABCR PO STA (08:56)
[2023-09-26] MEDS: LANTUS PER UNIT CHARGE SC SCH (08:57)
[2023-09-26] MEDS ORDERED: LANTUS PER UNIT CHARGE SQ SCH (09:00)
[2023-09-26 09:10] LABS: Base Excess VBG 16.1 mEq/L; HCO3 VBG 44 mmol/L; Oxygen Saturation VBG < 60.0 %; PCO2 VBG 70 mmHg (38-50); PO2 VBG 25 mmHg; pH VBG 7.41 (7.36-7.41)
--- NOTE | 2023-09-26 10:50 | Pulmonary Consultation ---
Date of Consultation September 26, 2023 Assessment & Plan (1) Chronic hypercapnic respiratory failure: Due to chronic hypercapnic respiratory failure consequent to COPD, the patient now requires a noninvasive home ventilator. Bilevel therapy with and without a rate would be ineffective as patient requires a volume targeted mode. Ventilation is required to decrease work of breathing and improve pulmonary status. Interruption of ventilator support would lead to decline of health status. NIMV settings should be AVAPS-AE; Breath rate: auto; Inspiratory time: auto; Sigh: off; Tidal Volume: 500, PS min: [4-10 PS max: 12-20]; EPAP min: [6-10]; EPAP max: [10-16]; AVAPS rate: [14 during sleep and as needed] (2) COPD (chronic obstructive pulmonary disease): Spirometry in the hospital previously did not reveal airflow obstruction. 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 Patient notes that she uses Trelegy 200 mcg daily and budesonide nebs twice daily. Her prior CT imaging did not show any significant emphysematous change. Micronodules were noted by the radiologist at the outside facility from her CT chest in November, but I do not see any evidence of nodules. No signs of COPD exacerbation at this time. No role for further prednisone or IV steroids. COPD type: unspecified COPD Qualified Code(s): J44.9 - Chronic obstructive pulmonary disease, unspecified (3) Tobacco abuse counseling: Patient continues to smoke 1 cigarette a day. I reiterated to her complete smoking cessation given her very frequent hospital admissions due to COPD exacerbations. Patient notes significant stressors in her family and that prevent her from being able to quit smoking. She is resistant to the idea of using any forms of nicotine replacement therapy as it seems to provoke her anxiety. She is also resistant to the idea of the use of Wellbutrin or Chantix. Plan I have no further recommendations at this time. I would recommend the patient's seek behavioral health support as an outpatient. I would recommend consulting case management to assist with getting the patient set up with a trilogy noninvasive ventilator due to chronically elevated CO2 levels. Otherwise, I suspect that she is safe for discharge from the hospital from a pulmonary perspective. History of Present Illness Reason for Consultation: Recurrent hospital admissions for respiratory failure Attending Physician: Rico Varghese History of Present Illness 63-year-old female with a history of opiate dependence, multiple myeloma, history of PE on Lovenox diagnosed in 2019 at an outside facility, presumptive COPD, presumptive OHS, diastolic CHF, anxiety, anxiety disorder and depression who presents to the hospital 09/25/2023 due to swelling in her legs and hands. She also has had exertional dyspnea with minimal activities over the past 3 days. Chest x-ray completed on admission revealed low lung volumes and mild interstitial coarsening. VQ scan 03/03/2023 was low probability for PE. CT chest scan reviewed by me completed in outside facility 12/17/2022 revealed, per radiology, multiple micronodules in the upper lobes and in the interim pulmonary lymph node along the minor fissure. Trace patchy groundglass in the lower lobes. No significant emphysematous change or interstitial findings otherwise. Upon my personal review, the CT chest looks relatively unremarkable aside for some minimal bibasilar atelectasis. Additionally, she had a CT chest 06/21/2022 at [facility] which revealed acute nondisplaced fractures of the anterior right fifth, sixth and seventh rib. There is also an expansile lesion within the right fourth rib and a 1.8 cm lytic lesion in the T2 vertebral body. The parenchyma itself that time. Relatively clear although the exam is limited due to motion artifact. She had a spirometry while admitted to the hospital 03/06/2023 which did not reveal any findings of obstructive lung disease. Findings were nonspecific and indicative of a potential restrictive physiology. No full formal PFTs are available to review. She had an echocardiogram 07/28/2023 which revealed an LVEF of 60 to 65%. Mild concentric LVH. Right ventricle was not well-visualized. Mild right ventricular hypertrophy was noted. RV systolic function was qualitatively normal per cardiology. CBC this admission reveals a leukocytosis of 15,000. I did review several CBCs over the past 6 months and she has not had any significant peripheral eosinophilia. IgG, IgA and IgM levels were checked in June 2022 and were within normal limits at that time. Respiratory viral panel this admission was unremarkable. VBG from this admission reveals a compensated respiratory acidosis with a pH of 7.41, pCO2 of 70 and a serum bicarbonate of 44. Prior ABG from July of this year revealed a respiratory alkalosis with a pH of 7.55 and a pCO2 of 55. Serum bicarbonate at that time was 48. ABG from 03/06/2023 also revealed a mild compensated respiratory acidosis with a pH of 7.44, pCO2 of 48 and a serum bicarb of 33. Patient apparently follows with pulmonary medicine in [place], [place]. Patient relates significant social economic stressors. She currently lives with her sister here in [place] who she has a tenuous relationship with. She notes that she and intends on moving back to [facility] at the end of September to live closer to her son. She continues to smoke about 1 cigarette/day. She notes that pollen at the local area seems to be a huge trigger for her symptoms. Allergies Allergy/AdvReac Type Severity Reaction Status Date / Time codeine Allergy Severe Anaphylaxis Verified 09/25/23 16:53 Iodinated Contrast Media Allergy Severe Anaphylaxis Verified 09/25/23 16:53 shellfish derived Allergy Severe Anaphylaxis Verified 09/25/23 16:53 tramadol Allergy Intermediate ITCHINESS Verified 09/25/23 16:53 iohexol Allergy Unknown CAN'T Verified 09/25/23 16:53 REMEMBER diphenhydramine AdvReac Severe Anxiety Verified 09/25/23 16:53 [From Benadryl] montelukast [From Singulair] AdvReac Intermediate Anxiety Verified 09/25/23 16:53 promethazine AdvReac Intermediate Anxiety Verified 09/25/23 16:53 Home Medications Medication Instructions Recorded Confirmed Type buprenorphine 8 mg-naloxone 2 mg 1 film sublingual QAM 05/14/22 09/25/23 History sublingual film nystatin 100,000 unit/gram topical 1 applic topical BID PRN UNDER 05/14/22 09/25/23 History powder BREASTS NEEDED. ondansetron HCl 4 mg tablet 4 mg PO Q8H PRN NAUSEA/VOMITING 05/14/22 09/25/23 History quetiapine 200 mg tablet 200 mg PO HS 05/14/22 09/25/23 History insulin glargine 100 unit/mL (3 60 unit subcut QAM 06/21/22 09/25/23 History mL) subcutaneous pen ipratropium bromide 0.02 % 3 ml continuous nebulization QID 01/16/23 09/25/23 History solution for inhalation levalbuterol HCl 1.25 mg/3 mL 1.25 mg inhalation TID PRN 01/16/23 09/25/23 History solution for nebulization Shortness Of Breath Or Wheezing bumetanide 2 mg tablet 4 mg PO BID 03/02/23 09/25/23 History enoxaparin 150 mg/mL subcutaneous 150 mg subcut QAM 05/07/23 09/25/23 History syringe insulin aspart U-100 100 unit/mL 10 unit subcut AC 05/07/23 09/25/23 History (3 mL) subcutaneous pen (Novolog FlexPen U-100 Insulin aspart) metolazone 5 mg tablet 5 mg PO 3XWK 07/28/23 09/25/23 History alprazolam 0.5 mg tablet 0.5 mg PO TID #14 tabs 08/02/23 09/25/23 Rx prednisone 10 mg tablet 0 mg PO DIRECTED PRN flare ups 08/16/23 09/25/23 History potassium chloride 20 mEq 40 meq (2 x 20 mEq) PO BID #120 08/18/23 09/25/23 Rx tablet,extended release(part/cryst) tabs albuterol sulfate 90 mcg/actuation 2 puff inhalation UD PRN Shortness 08/30/23 09/25/23 History aerosol inhaler Of Breath Or Wheezing buprenorphine 8 mg-naloxone 2 mg 0.5 film sublingual QPM 09/11/23 09/25/23 History sublingual film guaifenesin 600 mg tablet, 600 mg PO Q12 PRN Congestion 09/11/23 09/25/23 History extended release 12 hr (Mucinex) fluticasone propionate 50 1 spray intranasal BID nasal 09/15/23 09/25/23 Rx mcg/actuation nasal congestion #0 mL spray,suspension (Flonase Allergy Relief) prednisone 10 mg tablet See Taper PO DIRECTED #40 tabs 09/15/23 09/25/23 Rx fluticasone fur. 200 mcg-umeclid 1 ea inhalation QAM #60 ea 09/16/23 09/25/23 Rx 62.5 mcg-vilant 25 mcg inhalat.powder (Trelegy Ellipta) levalbuterol tartrate 45 2 puff inhalation Q4 PRN WHEEZE 09/16/23 09/25/23 Rx mcg/actuation aerosol inhaler #15 grams sodium chloride 7 % for 4 ml NEB BIDR #120 mL 09/16/23 09/25/23 Rx nebulization Patient History Medical History (Updated 09/26/23 @ 12:06 by Jonnie Dan MD) Acute exacerbation of chronic obstructive pulmonary disease Heart failure with preserved ejection fraction Hypokalemia Tobacco abuse Opiate dependence Dyspnea Diabetes Multiple myeloma Last chemotherapy 2017 Follows with medical oncology in [facility] Acute heart failure with preserved ejection fraction (HFpEF) Asthma Surgical History No pertinent past surgical history Social History Smoking Status: Current every day smoker Tobacco Type: Cigarettes Cigarettes Per Day: 1 cigarette per day; Second Hand Exposure: Yes; Do You Dip or Chew Tobacco: No; Hx Alcohol Use: No Hx Substance Use: Yes Last Used Substance: Unknown Preferred Language: Zambian Communication Ability: Effective Energy Project Engineer Required: No Beliefs That Will Affect Care: None Current Living Situation: Family Current Living Situation Comment: lives with sister temporarily Feels Safe at Home: Yes Safety Concerns: Feels Safe At This Time Assistive Devices: Denture - Upper, Denture - Lower, Glasses and Oxygen - at Night Review of Systems Review of Systems: All systems reviewed & are unremarkable except as noted in HPI & below Physical Exam Physical Exam: Constitutional: Patient appears to be of their stated age. Patient is in no apparent distress. Patient is well-developed. Eyes: Pupils are equal round and reactive to light. Conjunctivae are normal. Anicteric sclera. Ears nose, mouth and throat: No perioral cyanosis. Neck: Trachea is midline. Visual inspection is normal. Respiratory: Clear to auscultation bilaterally. No use of accessory muscles. No significant clubbing noted. Cardiovascular: Regular rate and rhythm. No murmurs. No edema. Gastrointestinal: Normal bowel sounds, soft, nontender and nondistended. No hepatosplenomegaly noted. Musculoskeletal: No cyanosis. Patient is able to move all extremities. Strength is 5 out of 5 in the upper and lower extremities. Skin: No rashes, warm dry and intact. Neurologic: No obvious focal neurological deficits seen. Psychiatric: Alert and oriented x3 with a euthymic affect. Results & Data Results & Data Vital Signs (Past 12 Hours) Vital Signs Temp Pulse Pulse Resp BP BP Pulse Ox 09/26/23 09:29 09/26/23 07:45 36.8 C 87 20 107/73 95 09/26/23 07:38 87 16 96 09/26/23 03:33 36.6 C 92 H 20 106/68 90 09/26/23 01:59 88 14 94 09/26/23 01:12 09/26/23 01:11 36.4 C L 96 H 20 137/89 91 09/26/23 01:10 104 H 09/26/23 01:05 88 21 122/84 94 09/25/23 23:30 92 H 14 09/25/23 23:06 95 H 14 O2 Del Method O2 Flow Rate 09/26/23 09:29 Nasal Cannula 3 09/26/23 07:45 Room Air 09/26/23 07:38 Nasal Cannula 3 09/26/23 03:33 Nasal Cannula 3 09/26/23 01:59 Nasal Cannula 2 09/26/23 01:12 Nasal Cannula 3 09/26/23 01:11 Nasal Cannula 3 09/26/23 01:10 09/26/23 01:05 Nasal Cannula 4 09/25/23 23:30 09/25/23 23:06 PG Care Time/CCT Total # of Minutes Spent Total Time Spent with Patient: Total time spent is greater than 50% in coordination of care (as documented) at patient's floor/unit and/or counseling patient: Coding Level of Care Code 64258 IN/OBS CONSULT LVL 4,60M Diagnoses Chronic hypercapnic respiratory failure J96.12 COPD (chronic obstructive pulmonary disease) J44.9 COPD type: unspecified COPD Tobacco abuse counseling Z71.6
[2023-09-26] MEDS: POLYETHYLENE (MIRALAX) 17 GM PACK PO SCH (12:23)
[2023-09-26] MEDS: MONTELUKAST SODIUM 10 MG TABLET PO ONE (12:47)
[2023-09-26] MEDS: POTASSIUM CHLORIDE CRTAB 20 MEQ TABCR PO SCH (13:56)
--- NOTE | 2023-09-26 14:14 | Pharmacy Report ---
Pharmacy Glycemic Short Note 2 - Date of Service September 26, 2023 - Glycemic Short BSG Results (Last 24 hours): 09/25/23 09/25/23 09/26/23 18:05 20:57 01:01 Glucose POC Glucose 163 H 165 H 110 H 09/26/23 09/26/23 09/26/23 05:36 08:06 11:52 Glucose 102 H POC Glucose 105 H 126 H OUTPATIENT ANTIDIABETIC REGIMEN: * Lantus 60 units SC AM * Novolog 10 units SC AC + SSI * HbA1c: 10.5% (08/31/23) ASSESSMENT: * 63 yo F admitted on 09/25/23 secondary to COPD exacerbation. Pharmacy has been consulted to assist with inpatient glycemic management. Patient is a Type 2 diabetic as an outpatient. Please refer to outpatient regimen and most recent HbA1c above. * Patient took 60 units of basal prior to admission yesterday. Received only 9 units bolus throughout the evening last night. BSGs were: 163-165 mg/dL. * Fasting BSG was 105 mg/dL this AM. Will start 40 units of basal daily while inpatient. This will likely need increased as patient starts to eat more. * No change to Novolog. PLAN FOR INPATIENT GLYCEMIC CONTROL: * Basal insulin * Lantus 40 units SC daily * Bolus insulin * NovoLog per scale ACHS or Q6hrs while NPO * Goal Range: Low 110 mg/dL - High 140 mg/dL * Correction Factor: 15 mg/dL/unit * Nutritional / Prandial insulin per carb ratio of 1 unit per 6 grams CHO consumed
--- NOTE | 2023-09-26 20:45 | Hospitalist Progress Note ---
Date of Service September 26, 2023 Assessment & Plan (1) COPD exacerbation: Plan: COPD exacerbation in a 63 year old female with shortness of breath. -admit to med/tele on pulse oximetry -Currently stable on room air. 94% -CXR negative. -IV Solu-Medrol 40mg daily -Continue LABA/LAMA, ICS -Doxycycline 100mg BID -Rocephin 1g daily -Consult pulmonology: appreciate input. -flutter valve and incentive spirometry -Patient appears improved, perhaps may be psych related (stress induced) panic attacks. Will contiue to monitor. (2) Heart failure with preserved ejection fraction: Plan: -symptoms related to pulmonary cause vs cardiac -Hold diuretics for remainder of today. -AM BMP tomorrow. Based on results, diuretics may be resumed. -BNP 09/25/2023: 74 (3) Diabetes: Plan: -Hemoglobin A1c 08/31/23 - 10.5 -glucose on admission 228 -Continue glargine 60 units subcu every morning and Novolog prior to meals -Goal 100-140 -pharmacy consulted -heart healthy, TII DM diet (4) Opiate dependence: Plan: -continue Suboxone (5) History of pulmonary embolism: Plan: -continue Lovenox therapeutic dosing (6) Muscle cramps: Plan: -potassium 3.4 -check magnesium Admission and Anticipated Discharge Date Admission Date: September 25, 2023 Subjective Patient reports breathing beter. Her cramps have also iproved. She does not feel quite at baseline. Reports having stress at home that may be [laying a role with her symptoms. Physical Exam Constitutional: WD/WN, vitals as above Respiratory: + uses accessory muscles; no respiratory distress Auscultation: + wheezes Cardiovascular: RRR, no murmur, no edema Musculoskeletal: Head/Neck/Chest: normocephalic and head atraumatic Skin: no rashes, warm and dry Psychiatric: A+Ox3, euthymic affect Results & Data Results & Data Vital Signs (Past 12 Hours) Vital Signs Temp Pulse Resp BP BP Pulse Ox O2 Del Method 09/26/23 20:01 83 20 93 Room Air 09/26/23 19:32 Room Air 09/26/23 19:31 36.7 C 92 H 18 118/70 90 Room Air 09/26/23 16:23 73 16 95 Room Air 09/26/23 15:55 36.5 C 88 20 100/68 90 Room Air 09/26/23 11:53 36.5 C 80 19 122/79 98 Room Air 09/26/23 09:29 Nasal Cannula O2 Flow Rate 09/26/23 20:01 09/26/23 19:32 09/26/23 19:31 09/26/23 16:23 09/26/23 15:55 09/26/23 11:53 09/26/23 09:29 3 PG Care Time/CCT Total # of Minutes Spent Total Time Spent with Patient: Total time spent is greater than 50% in coordination of care (as documented) at patient's floor/unit and/or counseling patient: Coding Level of Care Code 40318 SUB INP/OBS CARE 235MIN Diagnoses COPD exacerbation J44.1 Chronic heart failure with preserved ejection fraction I50.32 Heart failure chronicity: chronic Type 2 diabetes mellitus without complication, with long-term current use of insulin E11.9; Z79.4 Diabetes mellitus complication status: without complication Diabetes mellitus buttermaker helper insulin use: with residential use Diabetes mellitus type: type 2 Opioid dependence in remission F11.21 Substance use status: in remission History of pulmonary embolism Z86.711 Muscle cramps R25.2 (2) Heart failure with preserved ejection fraction Heart failure chronicity: chronic Qualified Code(s): I50.32 - Chronic diastolic (congestive) heart failure (3) Diabetes Diabetes mellitus complication status: without complication Diabetes mellitus buttermaker helper insulin use: with buttermaker helper use Diabetes mellitus type: type 2 Qualified Code(s): E11.9 - Type 2 diabetes mellitus without complications; Z79.4 - exterminator helper termite (current) use of insulin (4) Opiate dependence Substance use status: in remission Qualified Code(s): F11.21 - Opioid dependence, in remission
[2023-09-27 06:32] LABS: Hemoglobin 15.7 g/dl (12.0-16.0); Mean Corpuscular Hemoglobin 26.2 pg (25.0-34.0); Mean Corpuscular Hgb Conc 31.4 g/dL (32.0-36.0); Mean Corpuscular Volume 83.3 fL (80.0-100.0); Mean Platelet Volume 9.8 fL (9.4-12.4); Platelet Count 269 K/uL (130-400); RDW Coefficient of Variation 18.7 % (11.5-14.5); RDW Standard Deviation 51.9 fL (36.4-46.3); White Blood Count 12.85 K/ul (4.8-10.8)
[2023-09-27 07:30] LABS: C Reactive Protein 2.71 mg/dl (0-0.5); Calcium 8.9 mg/dl (8.6-10.3); Creatinine Clr Calc Pharmacy 83.1 ml/min; Est GFR (African American) 91.6 ml/min; Potassium 3.5 mmol/L (3.5-5.1)
[2023-09-27] MEDS: LANTUS PER UNIT CHARGE SC STA (09:53)
[2023-09-27] MEDS: LANTUS PER UNIT CHARGE SC SCH (11:32)
--- NOTE | 2023-09-27 14:18 | Pharmacy Report ---
Pharmacy Glycemic Short Note 2 - Date of Service September 27, 2023 - Glycemic Short BSG Results (Last 24 hours): 09/26/23 09/26/23 09/27/23 16:52 20:33 05:39 Glucose 189 H POC Glucose 103 H 149 H 09/27/23 09/27/23 08:13 12:05 Glucose POC Glucose 297 H 151 H OUTPATIENT ANTIDIABETIC REGIMEN: * Lantus 60 units SC AM * Novolog 10 units SC AC + SSI * HbA1c: 10.5% (08/31/23) ASSESSMENT: 09/26: * Janae received 72 units of insulin yesterday, 40 of which were basal. BSGs were [phone] mg/dL. * Fasting BSG was 297 mg/dL. Will increase basal dose by 50% today. RN had already given 40 units this AM so added an additional 20 units this AM. * No change to Novolog at this time. 09/25: * 63 yo F admitted on 09/25/23 secondary to COPD exacerbation. Pharmacy has been consulted to assist with inpatient glycemic management. Patient is a Type 2 diabetic as an outpatient. Please refer to outpatient regimen and most recent HbA1c above. * Patient took 60 units of basal prior to admission yesterday. Received only 9 units bolus throughout the evening last night. BSGs were: 163-165 mg/dL. * Fasting BSG was 105 mg/dL this AM. Will start 40 units of basal daily while inpatient. This will likely need increased as patient starts to eat more. * No change to Novolog. PLAN FOR INPATIENT GLYCEMIC CONTROL: * Basal insulin * Lantus 60 units SC daily * Bolus insulin * NovoLog per scale ACHS or Q6hrs while NPO * Goal Range: Low 110 mg/dL - High 140 mg/dL * Correction Factor: 15 mg/dL/unit * Nutritional / Prandial insulin per carb ratio of 1 unit per 6 grams CHO consumed
[2023-09-27] MEDS: POTASSIUM CHLORIDE CRTAB 20 MEQ TABCR PO SCH (14:31)
[2023-09-27] MEDS: predniSONE 10 MG TABLET PO ONE (14:31)
--- NOTE | 2023-09-27 19:47 | Hospitalist Progress Note ---
Date of Service September 27, 2023 Assessment & Plan (1) COPD exacerbation: Plan: COPD exacerbation in a 63 year old female with shortness of breath. -admit to med/tele on pulse oximetry -Currently stable on room air. 94% -CXR negative. -IV Solu-Medrol 40mg daily -Continue LABA/LAMA, ICS -Doxycycline 100mg BID -Rocephin 1g daily -Consult pulmonology: appreciate input. -flutter valve and incentive spirometry -Patient appears improved, perhaps may be psych related (stress induced) panic attacks. Will contiue to monitor. Had discussion with case management, plan is to obtain trilogy ventilator. She has had multiple hospital stays (8 readmissions) in the past 5 months due to uncontrolled COPD. She has qualified for the trilogy machine in the past but for some rason, patient did not followup with this. Will try to get this approved tomorrow. Patient will also have a sleep study as patient uses 3 liters of oxygen overnight. (2) Heart failure with preserved ejection fraction: Plan: -symptoms related to pulmonary cause vs cardiac -Hold lasix as patient had signs of contraction alkalosis. -BNP 09/25/2023: 74 (3) Diabetes: Plan: -Hemoglobin A1c 08/31/23 - 10.5 -glucose on admission 228 -Continue glargine 60 units subcu every morning and Novolog prior to meals -Goal 100-140 -pharmacy consulted -heart healthy, TII DM diet (4) Opiate dependence: Plan: -continue Suboxone (5) History of pulmonary embolism: Plan: -continue Lovenox therapeutic dosing (6) Muscle cramps: Plan: -potassium 3.4 -check magnesium Admission and Anticipated Discharge Date Admission Date: September 25, 2023 Subjective Patient reports she is breathing better however she is concerned about the changes tat have been made with her plan of care as she states this is very different from her previous plan. During extensive discussion, patient reports feeling very stressed with her home situation and is worried that her son may not obtain the home so she can move away from her sister. She states it is a very stressful situation at home. Though patient is safe there. She states also that she has been taking her nebs scheduled and taking them as needed is new for her. Review of Systems Review of Systems: All systems reviewed & are unremarkable except as noted in HPI & below Physical Exam Constitutional: WD/WN, vitals as above Respiratory: + uses accessory muscles; no respiratory distress Auscultation: + wheezes Cardiovascular: RRR, no murmur, no edema Musculoskeletal: Head/Neck/Chest: normocephalic and head atraumatic Skin: no rashes, warm and dry Psychiatric: A+Ox3, euthymic affect Results & Data Results & Data Vital Signs (Past 12 Hours) Vital Signs Temp Pulse Resp BP Pulse Ox O2 Del Method O2 Flow Rate 09/27/23 19:31 Room Air, Nasal Cannula 3 09/27/23 16:01 37.0 C 95 H 18 131/80 96 Room Air 09/27/23 12:56 95 H 22 93 Room Air 09/27/23 11:52 36.5 C 89 17 107/75 96 Room Air 09/27/23 08:00 Nasal Cannula 3 PG Care Time/CCT Total # of Minutes Spent Total Time Spent with Patient: Total time spent is greater than 50% in coordination of care (as documented) at patient's floor/unit and/or counseling patient: Coding Level of Care Code 33651 SUB INP/OBS CARE 3/50MIN Diagnoses COPD exacerbation J44.1 Chronic heart failure with preserved ejection fraction I50.32 Heart failure chronicity: chronic Type 2 diabetes mellitus without complication, with long-term current use of insulin E11.9; Z79.4 Diabetes mellitus type: type 2 Diabetes mellitus half-way insulin use: with intermodal truck driver use Diabetes mellitus complication status: without complication Opioid dependence in remission F11.21 Substance use status: in remission History of pulmonary embolism Z86.711 Muscle cramps R25.2 (2) Heart failure with preserved ejection fraction Heart failure chronicity: chronic Qualified Code(s): I50.32 - Chronic diastolic (congestive) heart failure (3) Diabetes Diabetes mellitus type: type 2 Diabetes mellitus intermodal truck driver insulin use: with half-way use Diabetes mellitus complication status: without complication Qualified Code(s): E11.9 - Type 2 diabetes mellitus without complications; Z79.4 - MCC (current) use of insulin (4) Opiate dependence Substance use status: in remission Qualified Code(s): F11.21 - Opioid dependence, in remission
[2023-09-27] MEDS ORDERED: Nursing to Pharmacy Communication SCH (21:15)
[2023-09-28 06:42] LABS: Hematocrit (blood only) 43.8 % (37.0-47.0); Hemoglobin 14.1 g/dl (12.0-16.0); Mean Corpuscular Hemoglobin 26.5 pg (25.0-34.0); Mean Corpuscular Hgb Conc 32.2 g/dL (32.0-36.0); Mean Corpuscular Volume 82.2 fL (80.0-100.0); Mean Platelet Volume 9.2 fL (9.4-12.4); Platelet Count 224 K/uL (130-400); RDW Coefficient of Variation 17.9 % (11.5-14.5); RDW Standard Deviation 50.2 fL (36.4-46.3); Red Blood Count 5.33 M/uL (4.20-5.40)
[2023-09-28 07:08] LABS: BUN Creatinine Ratio 25.7 (10-20); C Reactive Protein 3.2 mg/dl (0-0.5); Calcium 8.9 mg/dl (8.6-10.3); Creatinine Clr Calc Pharmacy 89.9 ml/min; Est GFR (African American) 100.6 ml/min; Est GFR (Non-African American) 86.8 ml/min
[2023-09-28] MEDS: metOLazone 2.5 MG TABLET PO SCH (08:29)
[2023-09-28] MEDS: LANTUS PER UNIT CHARGE SC SCH (08:42)
[2023-09-28] MEDS: SOD PHOSPHATE/SOD BIPHOSPHATE ENEMA 132 ML BTL PR STA (09:55)
--- NOTE | 2023-09-28 20:55 | Hospitalist Progress Note ---
Date of Service September 28, 2023 Assessment & Plan (1) COPD exacerbation: Plan: COPD exacerbation in a 63 year old female with shortness of breath. -admit to med/tele on pulse oximetry -Currently stable on room air. 94% -Continue LABA/LAMA, ICS -Doxycycline 100mg BID -Rocephin 1g daily -Consult pulmonology: appreciate input. Will taper steroids quickly as main driving force to her symptoms is likely anxiety and stress induced panic attacks. -flutter valve and incentive spirometry -Patient appears improved, despite getting little steroids. Will continue to monitor. also decreased lasix as patient was dry. this will need to be resumed in the outpatient setting Had discussion with case management, plan is to obtain trilogy ventilator. She has had multiple hospital stays (8 readmissions) in the past 5 months due to uncontrolled COPD. She has qualified for the trilogy machine in the past but for some rason, patient did not followup with this. Working on approval for trilogy machine Patient completed a sleep study as patient using 3 liters of oxygen overnight, Will likely benefit from using trilogy at night. (2) Heart failure with preserved ejection fraction: Plan: -symptoms related to pulmonary cause vs cardiac -Hold lasix as patient had signs of contraction alkalosis. -BNP 09/25/2023: 74 (3) Diabetes: Plan: -Hemoglobin A1c 08/31/23 - 10.5 -glucose on admission 228 -Continue glargine 60 units subcu every morning and Novolog prior to meals -Goal 100-140 -pharmacy consulted -heart healthy, TII DM diet (4) Opiate dependence: Plan: -continue Suboxone (5) History of pulmonary embolism: Plan: -continue Lovenox therapeutic dosing (6) Muscle cramps: Plan: -potassium 3.4 -check magnesium Admission and Anticipated Discharge Date Admission Date: September 25, 2023 Subjective Patient is concerned and anxious about her hypercapnia. She states she will no longer smoke as she does not want to . She remains concerned about the prospect of her son losing the potential home she will be getting close to home as she wants to leave [employer] this month. She also reports she does not want to leave without getting approved for the trilogy machine. Review of Systems Review of Systems: All systems reviewed & are unremarkable except as noted in HPI & below Physical Exam Constitutional: WD/WN, vitals as above Respiratory: no respiratory distress and does not use accessory muscles Musculoskeletal: Head/Neck/Chest: normocephalic and head atraumatic Skin: no rashes, warm and dry Psychiatric: A+Ox3, euthymic affect Results & Data Results & Data Vital Signs (Past 12 Hours) Vital Signs Temp Pulse Resp BP Pulse Ox O2 Del Method FiO2 09/28/23 19:34 36.8 C 95 H 18 127/77 92 Room Air 09/28/23 19:31 98 H 22 96 Room Air 09/28/23 14:43 37.3 C 96 H 20 110/69 98 Room Air 09/28/23 13:09 97 H 18 95 Room Air 21 09/28/23 11:22 36.9 C 93 H 19 116/80 96 Room Air PG Care Time/CCT Total # of Minutes Spent Total Time Spent with Patient: Total time spent is greater than 50% in coordination of care (as documented) at patient's floor/unit and/or counseling patient: Coding Level of Care Code 97475 SUB INP/OBS CARE 3/50MIN Diagnoses COPD exacerbation J44.1 Chronic heart failure with preserved ejection fraction I50.32 Heart failure chronicity: chronic Type 2 diabetes mellitus without complication, with long-term current use of insulin E11.9; Z79.4 Diabetes mellitus complication status: without complication Diabetes mellitus 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 lab technician insulin use: with half-way use Diabetes mellitus type: type 2 Opioid dependence in remission F11.21 Substance use status: in remission History of pulmonary embolism Z86.711 Muscle cramps R25.2 (2) Heart failure with preserved ejection fraction Heart failure chronicity: chronic Qualified Code(s): I50.32 - Chronic diastolic (congestive) heart failure (3) Diabetes Diabetes mellitus complication status: without complication Diabetes mellitus nitriles lab technician insulin use: with half-way use Diabetes mellitus type: type 2 Qualified Code(s): E11.9 - Type 2 diabetes mellitus without complications; Z79.4 - field support representative (current) use of insulin (4) Opiate dependence Substance use status: in remission Qualified Code(s): F11.21 - Opioid dependence, in remission
[2023-09-29 06:09] LABS: Hemoglobin 13.9 g/dl (12.0-16.0); Mean Corpuscular Hemoglobin 26.2 pg (25.0-34.0); Mean Corpuscular Hgb Conc 31.6 g/dL (32.0-36.0); Mean Platelet Volume 9.4 fL (9.4-12.4); Platelet Count 211 K/uL (130-400); RDW Coefficient of Variation 17.8 % (11.5-14.5); RDW Standard Deviation 51.7 fL (36.4-46.3); White Blood Count 11.99 K/ul (4.8-10.8)
[2023-09-29 06:31] LABS: BUN Creatinine Ratio 24.4 (10-20); Calcium 8.6 mg/dl (8.6-10.3); Creatinine Clr Calc Pharmacy 85.3 ml/min; Est GFR (African American) 94.4 ml/min; Est GFR (Non-African American) 81.5 ml/min; Potassium 3.7 mmol/L (3.5-5.1)
--- NOTE | 2023-09-29 12:53 | Discharge Summary ---
Discharge Summary Date of Service September 29, 2023 Principal Dx & Hospital Course #1 = Principal Diagnosis (1) COPD exacerbation: COPD exacerbation in a 63 year old female with shortness of breath. Most likely a large component of anxiety related to her issues. This is her 8th admission in 5 months and we never really do anything more for here here in the hospital than what she could get at home. SHe is ambulating the dolan frequently numerous laps without any supplemental oxygen or wheezing. Obtained Trilogy vent machine for her to wear hs No further steroids needed Strongly encouraged use of SSRI-prescribed Celexa low dose but she wants to think about it and read up on it before trying it. Continues on xanax 3x/day Continue to encourage smoking cessation Continue LABA/LAMA, ICS Patient completed a sleep study using 3 liters of oxygen overnight and now will have Trilogy F/u with PULM outpt-sees PULM in hometown [facility] Trial of Singulair 10mg daily as she thinks her COPD issues are related to environmental allergies and she has a paradoxical reaction to many antihistamines (2) Chronic respiratory failure with hypoxia and hypercapnia: as above (3) Generalized anxiety disorder: severe, contributes to her SOB and numerous hospitalizations continue home Seroquel encouraged on numerous occasions to trial SSRI but she has been resistant--she is contemplating trial now--> will Rx Celexa 10mg daily (QTc acceptable on ECG here) Continue home xanax for now but eventually should be weaned off this by PCP (4) Diabetes: Hemoglobin A1c 08/31/23 - 10.5%, uncontrolled Suspect noncompliance and frequent prednisone with numerous hospitalizations no further steroids needed here Encourage compliance with insulin at home (5) Heart failure with preserved ejection fraction: Not volume overloaded and in fact had contraction alkalosis while here Held Bumex and now will dc to home on half dose of 2mg po bid and reduced metolazone to 2.5mg three times a week, reduce KCl dose to 20 meq bid BNP normal Continue low sodium diet at home (6) Opiate dependence: continue Suboxone (7) History of pulmonary embolism: continue Lovenox therapeutic dosing Plan Dispo-dc to home Notes For Next Care Provider Needs close follow up to prevent readmissions for COPD, anxiety Medication Changes From Visit Added Singulair 10mg po daily Added Celexa 10mg po daily Admission HPI Per Admitting Provider This is a 63-year-old female with a past medical history including severe COPD, chronic tobacco use, opiate dependence, HFpEF, obesity hypoventilation syndrome, diabetes mellitus, chronic anticoagulation, and hypokalemia who presented to the ED on 09/25/2023 with a chief complaint of shortness of breath. Patient has had various hospital admissions recently for similar complaints. At time of encounter she was sitting upright in a chair, on room air, with an O2 sat of 94%. She states that about 3 days ago she started to notice worsening shortness of breath. She states that yesterday she went to the grocery store and developed more severe shortness of breath. It did not improve with her nebulizer and inhalers which is what prompted her to report to the ED. She admits to wheezing. She continues to smoke 1 cigarette per day in the morning. She has not followed up with any speciality providers following previous admissions as she plans to relocate home and continue continuity with her previous specialists. She does note noticeable improvement of her LE edema with her diuretic therapy, however was complaining of edema in her b/l hands. She also has been complaining of significant cramping in her b/l legs and hands over the last few days. She denies any fevers, chills, chest pain, palpitations, worsening cough. She denies any changes in sputum production. She reports no abdominal or urinary complaints. Discharge Exam Constitutional WD/WN, vitals as above Respiratory normal respiratory effort, lungs clear to auscultation Cardiovascular RRR, no murmur, no edema Psychiatric Orientation: alert and oriented x 3 Affect: + anxious affect Updated Medication List Medication Instructions Recorded Confirmed Type buprenorphine 8 mg-naloxone 2 mg 1 film sublingual QAM 05/14/22 09/25/23 History sublingual film nystatin 100,000 unit/gram topical 1 applic topical BID PRN UNDER 05/14/22 09/25/23 History powder BREASTS NEEDED. ondansetron HCl 4 mg tablet 4 mg PO Q8H PRN NAUSEA/VOMITING 05/14/22 09/25/23 History quetiapine 200 mg tablet 200 mg PO HS 05/14/22 09/25/23 History insulin glargine 100 unit/mL (3 60 unit subcut QAM 06/21/22 09/25/23 History mL) subcutaneous pen ipratropium bromide 0.02 % 3 ml continuous nebulization QID 01/16/23 09/25/23 History solution for inhalation levalbuterol HCl 1.25 mg/3 mL 1.25 mg inhalation TID PRN 01/16/23 09/25/23 Hist ory solution for nebulization Shortness Of Breath Or Wheezing bumetanide 2 mg tablet 4 mg PO BID 03/02/23 09/25/23 History enoxaparin 150 mg/mL subcutaneous 150 mg subcut QAM 05/07/23 09/25/23 History syringe insulin aspart U-100 100 unit/mL 10 unit subcut AC 05/07/23 09/25/23 History (3 mL) subcutaneous pen (Novolog FlexPen U-100 Insulin aspart) metolazone 5 mg tablet 5 mg PO 3XWK 07/28/23 09/25/23 History alprazolam 0.5 mg tablet 0.5 mg PO TID #14 tabs 08/02/23 09/25/23 Rx prednisone 10 mg tablet 0 mg PO DIRECTED PRN flare ups 08/16/23 09/25/23 History potassium chloride 20 mEq 40 meq (2 x 20 mEq) PO BID #120 08/18/23 09/25/23 Rx tablet,extended release(part/cryst) tabs albuterol sulfate 90 mcg/actuation 2 puff inhalation UD PRN Shortness 08/30/23 09/25/23 History aerosol inhaler Of Breath Or Wheezing buprenorphine 8 mg-naloxone 2 mg 0.5 film sublingual QPM 09/11/23 09/25/23 History sublingual film guaifenesin 600 mg tablet, 600 mg PO Q12 PRN Congestion 09/11/23 09/25/23 History extended release 12 hr (Mucinex) fluticasone propionate 50 1 spray intranasal BID nasal 09/15/23 09/25/23 Rx mcg/actuation nasal congestion #0 mL spray,suspension (Flonase Allergy Relief) prednisone 10 mg tablet See Taper PO DIRECTED #40 tabs 09/15/23 09/25/23 Rx fluticasone fur. 200 mcg-umeclid 1 ea inhalation QAM #60 ea 09/16/23 09/25/23 Rx 62.5 mcg-vilant 25 mcg inhalat.powder (Trelegy Ellipta) levalbuterol tartrate 45 2 puff inhalation Q4 PRN WHEEZE 09/16/23 09/25/23 Rx mcg/actuation aerosol inhaler #15 grams sodium chloride 7 % for 4 ml NEB BIDR #120 mL 09/16/23 09/25/23 Rx nebulization citalopram 10 mg tablet (Celexa) 10 mg PO DAILY #30 tabs 09/29/23 Rx montelukast 10 mg tablet 10 mg PO DAILY #30 tabs 09/29/23 Rx (Singulair) Hospital Stay Data Consultations 09/25/23 13:58 ED Decision to Admit Stat 09/25/23 21:30 Consult Pulmonology Routine Pending Results Patient Have Any Pending Studies at Discharge: No Discharge Instructions Given to Patient (Per Discharging Provider) Please use the Trilogy machine every night while sleeping to help improve your breathing and lower your carbon dioxide levels. You do not need any more steroids. You will be started on a new medication to help with allergies called Singulair. This can be taken once daily in the morning. You will also be prescribed Celexa as we discussed to help with generalized anxiety. I really feel this will help you better be able to deal with your stressful situation until you can get back home to where you are more comfortable. As we discussed, it will be a very hard crump of the will to NOT SMOKE when you go home but this will DEFINITELY help keep you from having trouble with your br eathing. The doses of your water pills were lowered as you were getting too dehydrated- your Bumex is down to 2mg twice a day and the metolazone is down to a half tab (2.5mg) three times a week. Your potassium pill was also reduced to 20 meq twice a day. 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
== END 2023-09-29 14:04 | disposition home or self-care (01) | DRG 190 ==
LOC: ED 09:59 → SUATTDRO 14:14 → EDINP 14:14 → 4W 09-26 00:57

== ENCOUNTER 2023-09-30 05:25 | Inpatient (IN) ==
[2023-09-30 06:24] LABS: Basophils # (auto) 0.04 K/uL (0.00-0.20); Basophils % (auto) 0.3 %; Eosinophils # (auto) 0.18 K/uL (0.00-0.50); Eosinophils % (auto) 1.3 %; Hematocrit (blood only) 43.5 % (37.0-47.0); Hemoglobin 14.2 g/dl (12.0-16.0); Immature Granulocytes # (auto) 0.09 K/uL (0.01-0.20); Immature Granulocytes % (auto) 0.7 %; Lymphocytes # (auto) 1.65 K/uL (1.20-3.40); Lymphocytes % (auto) 11.9 %; Mean Corpuscular Hemoglobin 26.7 pg (25.0-34.0); Mean Corpuscular Hgb Conc 32.6 g/dL (32.0-36.0); Mean Corpuscular Volume 81.9 fL (80.0-100.0); Mean Platelet Volume 9.7 fL (9.4-12.4); Monocytes # (auto) 0.69 K/uL (0.11-0.59); Neutrophils # (auto) 11.18 K/uL (1.40-6.50); Neutrophils % (auto) 80.8 %; Platelet Count 231 K/uL (130-400); RDW Coefficient of Variation 17.6 % (11.5-14.5); RDW Standard Deviation 49.8 fL (36.4-46.3); Red Blood Count 5.31 M/uL (4.20-5.40); White Blood Count 13.83 K/ul (4.8-10.8)
--- NOTE | 2023-09-30 06:44 | Emergency Department Note ---
Impression & Plan Shortness of breath, COPD (chronic obstructive pulmonary disease) ED Provider Note NAME: LIANNE SAMUEL AGE: 63 SEX: F : 1960 ARRIVES VIA: Walk-In INFORMANT: Patient ED PROVIDER(S): Robby Birmingham DO CHIEF COMPLAINT: shortness of breath HPI: Patient is a 63-year-old female with a past medical history of obesity hypoventilation syndrome, PE, COPD who presents the ER for shortness of breath. She was just admitted and discharged and got home yesterday. She notes she cannot walk around as she significantly short of breath. She wears oxygen just at night. She denies any chest pain or new cough or congestion. No belly pain nausea vomiting or diarrhea. She notes increased swelling in her legs. She does not wear self daily. ADDITIONAL HISTORY OBTAINED: Per HPI Chronic Medical/Social Conditions Affecting Care: Per HPI PAST MEDICAL HISTORY:See Below PAST SURGICAL HISTORY:See Below FAMILY HISTORY:See Below SOCIAL HISTORY:See Below HOME MEDICATIONS:See Below ALLERGIES:See Below VITALS:See Below PHYSICAL EXAMINATION: GENERAL: Sitting up in bed, alert, well appearing, well nourished, no distress, non-toxic EYE EXAM: normal conjunctiva. OROPHARYNX: no exudate, no erythema, lips, buccal mucosa, and tongue normal and mucous membranes are moist NECK: supple, no nuchal rigidity, no adenopathy, non-tender LUNGS: Diffuse wheezing throughout. Normal chest wall mechanics HEART: no murmurs, S1 normal and S2 normal ABDOMEN: abdomen soft, non-tender, normo-active bowel sounds, no masses, no rebound or guarding. UPPER EXTREMITIES: upper extremities are grossly normal. LOWER EXTREMITIES: Pitting edema in the lower extremities NEURO EXAM: Normal sensorium, cranial nerves II-XII grossly intact, normal speech, no gross weakness of arms, no gross weakness of legs. MEDICAL DECISION MAKING: Patient is a 63-year-old female who presents the ER for shortness of breath. She was just discharged yesterday from the hospital. External notes were reviewed and patient was admitted for shortness of breath and discharged able to ambulate without difficulty at that time per Dr. Chan. IV was established blood work was obtained. Labs show mild leukocytosis of 13.8 thousand. No significant anemia. BMP with mild hypokalemia 3.3. LFTs bilirubin is unremarkable. Troponin was elevated at 20 which appears to be her baseline as she runs 18-24. EKG was nondiagnostic. Chest x-ray was unremarkable. She was hypoxic here on room air and was placed on 3 L nasal cannula which she wears at night. She was given neb treatments and steroids. She does have pitting edema. Discussed case with Dr. Abreu and Dustin from the hospitalist service for further evaluation management treatment. Consults/Care Managements Discussions: Per [facility] Triage Nursing notes reviewed. Limited review of prior medical records performed Vital Signs: reviewed and remarkable for hypoxic Differential diagnosis: Differential diagnoses includes but is not limited to pneumonia, bronchitis, COPD/Asthma exacerbation, pneumothorax, pulmonary embolism, congestive heart failure, acute coronary syndrome ER treatment provided: See below Diagnostics interpreted by me include EKG and cardiac monitoring as listed below: -Cardiac Monitoring: An order was placed for continuous cardiac monitoring. The monitor shows a rate of 102 with sinus rhythm. -ECG: Sinus rhythm rate of 107 Inferior Q waves Septal Q waves QTc [address] elevation in the inferior leads unchanged from previous -Laboratory studies:Interpreted by me as stated above in MDM and shown below. Imaging studies: Xrays: As interpreted by me: Portable AP upright 1 view of the chest shows no focal infiltrate CTs show: none Procedures:none Critical Care: None Past Med/Surg History Problem List (Updated 09/30/23 @ 10:08 by Robby Birmingham DO) COPD (chronic obstructive pulmonary disease) (Acute) Shortness of breath (Acute) Generalized anxiety disorder Chronic respiratory failure with hypoxia and hypercapnia Tobacco abuse counseling Chronic hypercapnic respiratory failure CHF exacerbation (Acute) Muscle cramps Moderate persistent asthma Constipation History of pulmonary embolism Obesity hypoventilation syndrome Chronic anticoagulation Acute bronchitis Pulmonary vascular congestion Acute on chronic respiratory failure with hypoxia (Acute) COPD exacerbation (Acute) Right knee pain Nasal fracture Rib fractures (Acute) COPD (chronic obstructive pulmonary disease) (Acute) Medical History (Updated 09/30/23 @ 10:08 by Robby Birmingham DO) Acute exacerbation of chronic obstructive pulmonary disease Heart failure with preserved ejection fraction Hypokalemia Tobacco abuse Opiate dependence Dyspnea Diabetes Multiple myeloma Last chemotherapy 2016 Follows with medical oncology in [facility] Acute heart failure with preserved ejection fraction (HFpEF) Asthma Surgical History No pertinent past surgical history Social History Smoking Status: Current some day smoker Tobacco Type: Cigarettes Cigarettes Per Day: 1 cigarette per day; Second Hand Exposure: Yes; Do You Dip or Chew Tobacco: No; Hx Alcohol Use: No Hx Substance Use: Yes Last Used Substance: Unknown Preferred Language: Slovak Communication Ability: Effective Manager Search Engine Required: No Beliefs That Will Affect Care: None Current Living Situation: Family Current Living Situation Comment: lives with sister temporarily Feels Safe at Home: Yes Assistive Devices: Oxygen - at Night Allergies Allergies Allergy/AdvReac Type Severity Reaction Status Date / Time codeine Allergy Severe Anaphylaxis Verified 09/25/23 16:53 Iodinated Contrast Media Allergy Severe Anaphylaxis Verified 09/25/23 16:53 shellfish derived Allergy Severe Anaphylaxis Verified 09/25/23 16:53 tramadol Allergy Intermediate ITCHINESS Verified 09/25/23 16:53 iohexol Allergy Unknown CAN'T Verified 09/25/23 16:53 REMEMBER diphenhydramine AdvReac Severe Anxiety Verified 09/25/23 16:53 [From Benadryl] montelukast [From Singulair] AdvReac Intermediate Anxiety Verified 09/25/23 16:53 promethazine AdvReac Intermediate Anxiety Verified 09/25/23 16:53 Home Meds Home Medications Medication Instructions Recorded Confirmed buprenorphine 8 mg-naloxone 2 mg 1 film sublingual QAM 05/14/22 09/30/23 sublingual film nystatin 100,000 unit/gram topical 1 applic topical BID PRN UNDER 05/14/22 09/30/23 powder BREASTS NEEDED. ondansetron HCl 4 mg tablet 4 mg PO Q8H PRN NAUSEA/VOMITING 05/14/22 09/30/23 quetiapine 200 mg tablet 200 mg PO HS 05/14/22 09/30/23 insulin glargine 100 unit/mL (3 60 unit subcut QAM 06/21/22 09/30/23 mL) subcutaneous pen ipratropium bromide 0.02 % 3 ml continuous nebulization QID 01/16/23 09/30/23 solution for inhalation levalbuterol HCl 1.25 mg/3 mL 1.25 mg inhalation TID PRN 01/16/23 09/30/23 solution for nebulization Shortness Of Breath Or Wheezing enoxaparin 150 mg/mL subcutaneous 150 mg subcut QAM 05/07/23 09/30/23 syringe insulin aspart U-100 100 unit/mL 10 unit subcut AC 05/07/23 09/30/23 (3 mL) subcutaneous pen (Novolog FlexPen U-100 Insulin aspart) albuterol sulfate 90 mcg/actuation 2 puff inhalation UD PRN Shortness 08/30/23 09/30/23 aerosol inhaler Of Breath Or Wheezing buprenorphine 8 mg-naloxone 2 mg 0.5 film sublingual QPM 09/11/23 09/30/23 sublingual film guaifenesin 600 mg tablet, 600 mg PO Q12 PRN Congestion 09/11/23 09/30/23 extended release 12 hr (Mucinex) Previous Rx's Medication Instructions Recorded alprazolam 0.5 mg tablet 0.5 mg PO TID #14 tabs 08/02/23 fluticasone propionate 50 1 spray intranasal BID nasal 09/15/23 mcg/actuation nasal congestion #0 mL spray,suspension (Flonase Allergy Relief) fluticasone fur. 200 mcg-umeclid 1 ea inhalation QAM #60 ea 09/16/23 62.5 mcg-vilant 25 mcg inhalat.powder (Trelegy Ellipta) levalbuterol tartrate 45 2 puff inhalation Q4 PRN WHEEZE 09/16/23 mcg/actuation aerosol inhaler #15 grams bumetanide 2 mg tablet 2 mg PO BID #60 tabs 09/29/23 citalopram 10 mg tablet (Celexa) 10 mg PO DAILY #30 tabs 09/29/23 metolazone 5 mg tablet 2.5 mg (1/2 x 5 mg) PO 3XWK #12 09/29/23 tabs montelukast 10 mg tablet 10 mg PO DAILY #30 tabs 09/29/23 (Singulair) potassium chloride 20 mEq 20 meq PO BID #120 tabs 09/29/23 tablet,extended release(part/cryst) Results & Data (ED) Vital Signs Vital Signs - 24 hr 09/30/23 05:26 09/30/23 05:46 09/30/23 06:05 Temperature 36.9 C Temperature Source Temporal Artery Scan Pulse Rate 115 H 107 H Pulse Rate [Apical] 105 H Pulse Rhythm Regular Pulse Strength Normal Respiratory Rate 24 22 Respiratory Effort / Characteristics Non-Labored Spontaneous Labored Respiratory Depth Normal Normal Respiratory Pattern Regular Regular Blood Pressure 129/80 Blood Pressure [Right Arm] 105/71 Blood Pressure Mean 96 Blood Pressure Mean [Right Arm] 82 Blood Pressure Position Sitting Pulse Oximetry 93 97 Oxygen Delivery Method Room Air Nasal Cannula Oxygen Flow Rate 2 Sepsis Recent Fever Within 48 Hours No Sepsis New/Unexplained Change in Mental Status No Sepsis Action Taken by Nursing No Action Required Oxygen Flow Rate - Titration Pulse Oximetry Post Tiitration 09/30/23 06:05 09/30/23 06:05 09/30/23 08:00 Temperature Temperature Source Pulse Rate Pulse Rate [Apical] 100 H Pulse Rhythm Pulse Strength Respiratory Rate Respiratory Effort / Characteristics Respiratory Depth Respiratory Pattern Blood Pressure Blood Pressure [Right Arm] Blood Pressure Mean Blood Pressure Mean [Right Arm] Blood Pressure Position Pulse Oximetry 89 L 97 92 Oxygen Delivery Method Room Air Nasal Cannula Nasal Cannula Oxygen Flow Rate 3 2 Sepsis Recent Fever Within 48 Hours Sepsis New/Unexplained Change in Mental Status Sepsis Action Taken by Nursing Oxygen Flow Rate - Titration 3 Pulse Oximetry Post Tiitration 97 09/30/23 09:50 Temperature Temperature Source Pulse Rate 93 H Pulse Rate [Apical] Pulse Rhythm Pulse Strength Respiratory Rate Respiratory Effort / Characteristics Respiratory Depth Respiratory Pattern Blood Pressure Blood Pressure [Right Arm] Blood Pressure Mean Blood Pressure Mean [Right Arm] Blood Pressure Position Pulse Oximetry Oxygen Delivery Method Oxygen Flow Rate Sepsis Recent Fever Within 48 Hours Sepsis New/Unexplained Change in Mental Status Sepsis Action Taken by Nursing Oxygen Flow Rate - Titration Pulse Oximetry Post Tiitration Laboratory Data 09/30/23 05:59 09/30/23 05:59 Lab Results 09/30/23 09/30/23 09/30/23 Range/Units 05:59 06:27 06:32 WBC 13.83 H (4.8-10.8) K/ul RBC 5.31 (4.20-5.40) M/uL Hgb 14.2 (12.0-16.0) g/dl Hct 43.5 (37.0-47.0) % MCV 81.9 (80.0-100.0) fL MCH 26.7 (25.0-34.0) pg MCHC 32.6 (32.0-36.0) g/dL RDW Std Deviation 49.8 H (36.4-46.3) fL RDW Coeff of Malick 17.6 H (11.5-14.5) % Plt Count 231 (130-400) K/uL MPV 9.7 (9.4-12.4) fL Immature Gran % (Auto) 0.7 % Neut % (Auto) 80.8 % Lymph % (Auto) 11.9 % Sebastian % (Auto) 5.0 % Eos % (Auto) 1.3 % Baso % (Auto) 0.3 % Neut # (Auto) 11.18 H (1.40-6.50) K/uL Lymph # (Auto) 1.65 (1.20-3.40) K/uL Sebastian # (Auto) 0.69 H (0.11-0.59) K/uL Eos # (Auto) 0.18 (0.00-0.50) K/uL Baso # (Auto) 0.04 (0.00-0.20) K/uL Immature Gran # (Auto) 0.09 (0.01-0.20) K/uL PT Cancelled 11.2 INR Cancelled 1.0 APTT Cancelled 32 H PTT Ratio Cancelled 1.2 VBG pH (7.36-7.41) VBG pCO2 (38-50) mmHg VBG pO2 mmHg VBG HCO3 mmol/L VBG O2 Saturation % VBG Base Excess mEq/L Sodium 139 (136-145) mmol/L Potassium 3.3 L (3.5-5.1) mmol/L Chloride 96 L (98-107) mmol/L Carbon Dioxide 32 (21-32) mmol/L Anion Gap 11 (3-11) BUN 16 (6-23) mg/dl Creatinine 0.82 (0.6-1.2) mg/dl Est Cr Clr Drug Dosing 75.2 ml/min Est GFR ( Amer) 88.9 ml/min Est GFR (Non-Af Amer) 76.7 ml/min BUN/Creatinine Ratio 19.5 (10-20) Glucose 158 H (70-99(Fasting)) mg/dl Calcium 8.2 L (8.6-10.3) mg/dl Total Bilirubin 0.4 (0.2-1.0) mg/dl AST 15 (13-39) U/L ALT 17 (7-52) U/L Alkaline Phosphatase 90 (34-104) U/L Troponin I High Sens 20.8 H 19.1 H (0-14) pg/ml B-Natriuretic Peptide 57 (0-100) pg/ml Total Protein 7.1 (6.0-8.3) gm/dl Albumin 4.0 (3.4-5.0) gm/dl Globulin 3.1 (2.5-4.0) gm/dl Albumin/Globulin Ratio 1.3 (0.9-2) 09/30/23 Range/Units 07:24 WBC (4.8-10.8) K/ul RBC (4.20-5.40) M/uL Hgb (12.0-16.0) g/dl Hct (37.0-47.0) % MCV (80.0-100.0) fL MCH (25.0-34.0) pg MCHC (32.0-36.0) g/dL RDW Std Deviation (36.4-46.3) fL RDW Coeff of Malick (11.5-14.5) % Plt Count (130-400) K/uL MPV (9.4-12.4) fL Immature Gran % (Auto) % Neut % (Auto) % Lymph % (Auto) % Sebastian % (Auto) % Eos % (Auto) % Baso % (Auto) % Neut # (Auto) (1.40-6.50) K/uL Lymph # (Auto) (1.20-3.40) K/uL Sebastian # (Auto) (0.11-0.59) K/uL Eos # (Auto) (0.00-0.50) K/uL Baso # (Auto) (0.00-0.20) K/uL Immature Gran # (Auto) (0.01-0.20) K/uL PT INR APTT PTT Ratio VBG pH 7.45 H (7.36-7.41) VBG pCO2 49 (38-50) mmHg VBG pO2 74 mmHg VBG HCO3 34 mmol/L VBG O2 Saturation 96.7 % VBG Base Excess 8.6 mEq/L Sodium (136-145) mmol/L Potassium (3.5-5.1) mmol/L Chloride (98-107) mmol/L Carbon Dioxide (21-32) mmol/L Anion Gap (3-11) BUN (6-23) mg/dl Creatinine (0.6-1.2) mg/dl Est Cr Clr Drug Dosing ml/min Est GFR ( Amer) ml/min Est GFR (Non-Af Amer) ml/min BUN/Creatinine Ratio (10-20) Glucose (70-99(Fasting)) mg/dl Calcium (8.6-10.3) mg/dl Total Bilirubin (0.2-1.0) mg/dl AST (13-39) U/L ALT (7-52) U/L Alkaline Phosphatase (34-104) U/L Troponin I High Sens (0-14) pg/ml B-Natriuretic Peptide (0-100) pg/ml Total Protein (6.0-8.3) gm/dl Albumin (3.4-5.0) gm/dl Globulin (2.5-4.0) gm/dl Albumin/Globulin Ratio (0.9-2) Administered Medications Discontinued Medications Albuterol (Albut/Ipratrop 3mg/0.5mg Neb 3 Ml Vial) 6 ml NEB NOW STA; Protocol Stop: 09/30/23 06:41 Last Admin: 09/30/23 06:49 Dose: 6 ml Documented By: KAELA Methylprednisolone (Methylprednisolone 125 Mg/2 Ml Vial) 40 mg IV NOW STA Stop: 09/30/23 06:41 Last Admin: 09/30/23 06:49 Dose: 40 mg Documented By: KAELA Ondansetron HCl (Ondansetron Inj 2 Mg/Ml 2 Ml Vial) 4 mg IV NOW STA Stop: 09/30/23 07:06 Last Admin: 09/30/23 07:13 Dose: 4 mg Documented By: BARI Potassium Chloride (Potassium Chloride 10 Meq Tabcr) 40 meq PO NOW STA Stop: 09/30/23 07:06 Last Admin: 09/30/23 07:13 Dose: 40 meq Documented By: BARI Imaging Data Radiologist's Impression: Chest X-Ray 09/30/23 05:58 SINGLE VIEW CHEST CLINICAL HISTORY: Atypical chest pain. FINDINGS: An AP, portable, upright chest radiograph is compared to study dated 09/25/2023. Correlation is made with chest CT dated 06/21/2002. The cardiomediastinal silhouette is top normal for projection. Chronic interstitial thickening is similar to previous. There is bibasilar scarring/atelectasis. No airspace consolidation or large pleural effusion is identified. No pneumothorax is seen. The skeletal structures are osteopenic. An expansile lesion is again seen within the right anterior fourth rib. IMPRESSION: No acute cardiopulmonary abnormality is identified. ACT 112: Negative or not required by law. Electronically signed by: Cayetano Espinoza M.D. 09/30/2023 6:50 AM Discharge Plan Visit Data Chief Complaint: Swelling/Edema to Extremity Stated Complaint: EXTREMITIES SWOLLEN,FILLED W FLUID,CAN'T BREATHE ED Provider: Robby Birmingham Discharge Problem: Shortness of breath, COPD (chronic obstructive pulmonary disease) Forms Stand Alone Forms: My [facility] Prescriptions Prescriptions: No Action ondansetron HCl 4 mg Tablet 4 mg PO Q8H PRN (Reason: NAUSEA/VOMITING) quetiapine 200 mg tablet 200 mg PO HS nystatin 100,000 unit/gram Powder 1 applic TOPICAL BID PRN (Reason: UNDER BREASTS NEEDED.) buprenorphine-naloxone 8-2 mg film 1 film sublingual QAM insulin glargine 100 unit/mL (3 mL) insulin pen 60 unit SUBCUT QAM enoxaparin 150 mg/mL syringe 150 mg subcut QAM insulin aspart U-100 [Novolog FlexPen U-100 Insulin] 100 unit/mL (3 mL) insulin pen 10 unit SUBCUT AC Rx Instructions: Plus sliding scale levalbuterol HCl 1.25 mg/3 mL solution for nebulization 1.25 mg INHALATION TID PRN (Reason: Shortness Of Breath Or Wheezing) ipratropium bromide 0.02 % solution 3 ml continuous nebulization QID alprazolam 0.5 mg tablet 0.5 mg PO TID Qty: 14 0RF Rx Instructions: pt requesting to take same time as suboxone albuterol sulfate 90 mcg/actuation HFA aerosol inhaler 2 puff INHALATION UD PRN (Reason: Shortness Of Breath Or Wheezing) montelukast [Singulair] 10 mg tablet 10 mg PO DAILY Qty: 30 0RF citalopram [Celexa] 10 mg tablet 10 mg PO DAILY Qty: 30 0RF bumetanide 2 mg tablet 2 mg PO BID Qty: 60 0RF Rx Instructions: morning and lunch metolazone 5 mg tablet 2.5 mg PO 3XWK Qty: 12 0RF Rx Instructions: 5 mg orally on Mondays, Wednesdays, and Fridays potassium chloride 20 mEq Tablet,Er Particles/Crystals 20 meq PO BID Qty: 120 0RF buprenorphine-naloxone 8-2 mg film 0.5 film sublingual QPM Rx Instructions: Is tapering down guaifenesin [Mucinex] 600 mg tablet extended release 12hr 600 mg PO Q12 PRN (Reason: Congestion) Rx Instructions: OTC fluticasone propionate [Flonase Allergy Relief] 50 mcg/actuation spray,suspension 1 spray intranasal BID Qty: 0 0RF Rx Instructions: administer into each nostril Trelegy Ellipta 200-62.5-25 mcg blister with device 1 ea INHALATION QAM Qty: 60 0RF levalbuterol tartrate 45 mcg/actuation HFA aerosol inhaler 2 puff INHALATION Q4 PRN (Reason: WHEEZE) Qty: 15 0RF Referrals Referrals: Radha Barboza PA-C [Primary Care Provider] - Discharge Problem: COPD (chronic obstructive pulmonary disease) Qualifiers: COPD type: unspecified COPD Qualified Code(s): J44.9 - Chronic obstructive pulmonary disease, unspecified
[2023-09-30 06:49] LABS: Albumin Globulin Ratio 1.3 (0.9-2); BUN Creatinine Ratio 19.5 (10-20); Bilirubin,Total 0.4 mg/dl (0.2-1.0); Calcium 8.2 mg/dl (8.6-10.3); Creatinine Clr Calc Pharmacy 75.2 ml/min; Est GFR (African American) 88.9 ml/min; Est GFR (Non-African American) 76.7 ml/min; Globulin 3.1 gm/dl (2.5-4.0); Potassium 3.3 mmol/L (3.5-5.1); Total Protein 7.1 gm/dl (6.0-8.3)
[2023-09-30] MEDS: methylPREDNISolone 125 MG/2 ML VIAL IV STA (06:49)
[2023-09-30] MEDS: ALBUT/IPRATROP 3MG/0.5MG NEB 3 ML VIAL NEB STA (06:49)
--- NOTE | 2023-09-30 06:51 | XRay Report ---
SINGLE VIEW CHEST CLINICAL HISTORY: Atypical chest pain. FINDINGS: An AP, portable, upright chest radiograph is compared to study dated 09/25/2023. Correlation is made with chest CT dated 06/21/2002. The cardiomediastinal silhouette is top normal for projection . Chronic interstitial thickening is similar to previous. There is bibasilar scarring/atelectasis. No airspace consolidation or large pleural effusion is identified. No pneumothorax is seen. The skeleta l structures are osteopenic. An expansile lesion is again seen within the right anterior fourth rib. IMPRESSION: No acute cardiopulmonary abnormality is identified. ACT 112: Negative or not required by law. Electronically signed by: Cayetano Espinoza M.D. 09/30/2023 6:50 AM
[2023-09-30 06:54] LABS: Troponin I High Sensitivity 20.8 pg/ml (0-14)
[2023-09-30] MEDS: ONDANSETRON INJ 2 MG/ML 2 ML VIAL IV STA (07:13)
[2023-09-30] MEDS: POTASSIUM CHLORIDE 10 MEQ TABCR PO STA (07:13)
[2023-09-30 07:15] LABS: Partial Thromboplastin Ratio 1.2; Partial Thromboplastin Time 32 Seconds (21-31); Prothrombin Time 11.2 Seconds (9.0-12.0)
[2023-09-30 07:30] LABS: Base Excess VBG 8.6 mEq/L; HCO3 VBG 34 mmol/L; Oxygen Saturation VBG 96.7 %; PCO2 VBG 49 mmHg (38-50); PO2 VBG 74 mmHg; pH VBG 7.45 (7.36-7.41)
--- NOTE | 2023-09-30 07:44 | History & Physical Report ---
Date of Service September 30, 2023 Assessment & Plan (1) COPD (chronic obstructive pulmonary disease): Plan: Patient yet again presents with shortness of breath which is likely a combination of COPD and anxiety CT chest ordered which does show some infiltrates which could be consistent with pneumonia although she has been afebrile. She has a chronic leukocytosis, no sputum production, and procalcitonin a few days ago was normal She has no conversational dyspnea and no abnormal lung sounds on examination. She has not yet received her trilogy machine which was ordered last admission -Admit to medical/surgical unit -Was given IV steroids in the ER but given significant hyperglycemia, will convert to prednisone 40 mg daily tomorrow and quickly taper down -Strongly encouraged her to take the Celexa that we discussed previously for her severe anxiety but she declines at this time -There also needs to be clarification on her home inhalers-she states that she is taking both Trelegy inhaler along with scheduled Xopenex and Atrovent nebs as well as Perforomist twice daily and Pulmicort nebs twice daily-I discussed with her that she does not need to take Pulmicort and Perforomist if she is taking the Trelegy. I also discussed that she does not need to take scheduled Xopenex and Atrovent and that these can be taken as needed -Continue umeclidinium/vilanterol inhaler here in addition to inhaled fluticasone; continue scheduled Xopenex and Atrovent nebs while here but can be made as needed on discharge -CT chest with infiltrates as noted above-treat with Levaquin 750 mg daily x 7- day course -Check sputum culture -Continue to encourage smoking cessation (2) Chronic respiratory failure with hypoxia and hypercapnia: Plan: Uses 3 L nasal cannula O2 at baseline at bedtime, however was just qualified for a Trelegy ventilator machine at home but did not yet have it delivered on the day of discharge on 09/28 desktop manager will ensure that the trilogy machine again will be delivered -Check two-step walk test tomorrow prior to discharge to see if she needs oxygen with exertion-doubt that she will as she typically paces all day long around the hospital [place] when she is admitted without any shortness of breath (3) Heart failure with preserved ejection fraction: Plan: Patient with increased leg swelling while here but no pulmonary edema or pleural effusions and BNP is normal Suspect peripheral edema secondary to her bumetanide being held for a few days last admission for contraction alkalosis Resume home Bumex 2 Mg twice daily and metolazone 2.5 Mg 3 times a week, but will give Bumex 1 mg IV x 1 now -Low-sodium heart healthy diet, daily weights, strict I's and O's, fluid restrict to 1500 mL/day (4) Diabetes: Plan: With severe hyperglycemia resulting from IV steroid use in the ER, blood sugars in the low 400s. She also did not get her usual Lantus until late in the day of admission Hemoglobin A1c 8.5% -Give regular insulin 10 units IV x 1 recheck in 1 hour -Continue Lantus 60 units once daily, NovoLog with correction factor of 15, carb ratio 1:6, goal range 100-140 -If has persistent hyperglycemia, may need to start insulin drip (5) Generalized anxiety disorder: Plan: Severe, definitely contributing to her numerous hospital admissions. She declines to have mental health counseling in this area as she insist that she will be returning to her hometown hopefully in the next month and has a therapist that she is established with their. -Continue home Xanax 3 times daily -Encouraged her to start Celexa 10 mg daily-she declines at this time -Supportive care (6) History of pulmonary embolism: Plan: -Continue daily Lovenox 1.5 mg/kg once daily (7) Hypokalemia: Plan: - Secondary to diuretics -Continue potassium chloride 20 mill equivalents p.o. twice daily -Follow BMP, magnesium (8) Multiple myeloma: Plan: With a history of stem cell transplant 10 years ago Does have an expansile lesion in the right fourth rib unchanged from previous CT 1 year ago -She has an appointment pending with her oncologist back in her hometown of [place] in 1 month -Unclear if her persistent leukocytosis is related to her multiple myeloma? -Follow-up with hematology/oncology Plan DVT prophylaxis-Lovenox Disposition-admit to medical/surgical unit, two-step walk test on 09/30, hopeful for discharge on 09/30 but patient will likely guide discharge based on her comfort with going home History of Present Illness Chief Complaint: SOB, ankle swelling Primary Care Provider: Radha Barboza This is a 63-year-old female with a past medical history including severe COPD, chronic hypoxic respiratory failure using 3 LNC at bedtime, chronic ongoing tobacco use, opiate dependence on Suboxone, HFpEF, severe anxiety on chronic xanax, obesity hypoventilation syndrome, DMII, VTE on Lovenox, Multiple myeloma s/p Stem cell tx, and hypokalemia who presents to the ED on 09/30/2023 with a chief complaint of shortness of breath and ankle swelling. She has been admitted now 9 times in the last 5 months and 11 times in the last 9 months all for SOB/COPD/CHF related hospitalizations. She was just discharged by myself yesterday and was stable at that time. Patient reports that as soon as she got home yesterday, she noticed that her ankles were swollen and she started having shortness of breath. She took her usual Bumex, her usual nebulizers, claims that she did not smoke any cigarettes when she got home, and tried to make it through the night, but the shortness of breath persisted. Her sister was leaving for work this morning and she decided to hitch a ride to the ER with her in case things got worse so she would not be stranded at home. She does admit that anxiety likely plays a large role in her shortness of breath. In the ER, she had fairly unremarkable labs except mild hypokalemia and her usual chronic leukocytosis and mildly elevated troponin at her baseline of 20. CXR unremarkable as well. She briefly was hypoxic to 89% and was placed on her usual nighttime O2 of 3LNC. She apparently did not get her Trilogy machine yesterday after discharge despite the fact that our clinical case manager confirmed it was ready for delivery. She reports that she called [facility] and they told her that she has been going without the machine for this long, and that she could just get it the next day. In ER, she was given IV steroids, bronchodilator neb,potassium 40 meq po x 1, and IV Zofran. She will be brought in yet again for a COPD exacerbation and a 2 step walk test for home qualification of supplemental O2. Allergies Allergy/AdvReac Type Severity Reaction Status Date / Time codeine Allergy Severe Anaphylaxis Verified 09/25/23 16:53 Iodinated Contrast Media Allergy Severe Anaphylaxis Verified 09/25/23 16:53 shellfish derived Allergy Severe Anaphylaxis Verified 09/25/23 16:53 tramadol Allergy Intermediate ITCHINESS Verified 09/25/23 16:53 iohexol Allergy Unknown CAN'T Verified 09/25/23 16:53 REMEMBER diphenhydramine AdvReac Severe Anxiety Verified 09/25/23 16:53 [From Benadryl] montelukast [From Singulair] AdvReac Intermediate Anxiety Verified 09/25/23 16:53 promethazine AdvReac Intermediate Anxiety Verified 09/25/23 16:53 Home Medications Medication Instructions Recorded Confirmed Type buprenorphine 8 mg-naloxone 2 mg 1 film sublingual QAM 05/14/22 09/30/23 History sublingual film nystatin 100,000 unit/gram topical 1 applic topical BID PRN UNDER 05/14/22 09/30/23 History powder BREASTS NEEDED. ondansetron HCl 4 mg tablet 4 mg PO Q8H PRN NAUSEA/VOMITING 05/14/22 09/30/23 History quetiapine 200 mg tablet 200 mg PO HS 05/14/22 09/30/23 History insulin glargine 100 unit/mL (3 60 unit subcut QAM 06/21/22 09/30/23 History mL) subcutaneous pen ipratropium bromide 0.02 % 3 ml continuous nebulization QID 01/16/23 09/30/23 History solution for inhalation levalbuterol HCl 1.25 mg/3 mL 1.25 mg inhalation TID PRN 01/16/23 09/30/23 History solution for nebulization Shortness Of Breath Or Wheezing enoxaparin 150 mg/mL subcutaneous 150 mg subcut QAM 05/07/23 09/30/23 History syringe insulin aspart U-100 100 unit/mL 10 unit subcut AC 05/07/23 09/30/23 History (3 mL) subcutaneous pen (Novolog FlexPen U-100 Insulin aspart) alprazolam 0.5 mg tablet 0.5 mg PO TID #14 tabs 08/02/23 09/30/23 Rx albuterol sulfate 90 mcg/actuation 2 puff inhalation UD PRN Shortness 08/30/23 09/30/23 History aerosol inhaler Of Breath Or Wheezing buprenorphine 8 mg-naloxone 2 mg 0.5 film sublingual QPM 09/11/23 09/30/23 History sublingual film guaifenesin 600 mg tablet, 600 mg PO Q12 PRN Congestion 09/11/23 09/30/23 History extended release 12 hr (Mucinex) fluticasone propionate 50 1 spray intranasal BID nasal 09/15/23 09/30/23 Rx mcg/actuation nasal congestion #0 mL spray,suspension (Flonase Allergy Relief) fluticasone fur. 200 mcg-umeclid 1 ea inhalation QAM #60 ea 09/16/23 09/30/23 Rx 62.5 mcg-vilant 25 mcg inhalat.powder (Trelegy Ellipta) levalbuterol tartrate 45 2 puff inhalation Q4 PRN WHEEZE 09/16/23 09/30/23 Rx mcg/actuation aerosol inhaler #15 grams bumetanide 2 mg tablet 2 mg PO BID #60 tabs 09/29/23 09/30/23 Rx citalopram 10 mg tablet (Celexa) 10 mg PO DAILY #30 tabs 09/29/23 09/30/23 Rx metolazone 5 mg tablet 2.5 mg (1/2 x 5 mg) PO 3XWK #12 09/29/23 09/30/23 Rx tabs montelukast 10 mg tablet 10 mg PO DAILY #30 tabs 09/29/23 09/30/23 Rx (Singulair) potassium chloride 20 mEq 20 meq PO BID #120 tabs 09/29/23 09/30/23 Rx tablet,extended release(part/cryst) Past Med/Surg History Problem List (Updated 09/30/23 @ 19:10 by Petra Chan MD) Multiple myeloma Last chemotherapy 2017 Follows with medical oncology in [facility] Diabetes Hypokalemia Heart failure with preserved ejection fraction COPD (chronic obstructive pulmonary disease) (Acute) Shortness of breath (Acute) Generalized anxiety disorder Chronic respiratory failure with hypoxia and hypercapnia Tobacco abuse counseling Chronic hypercapnic respiratory failure CHF exacerbation (Acute) Muscle cramps Moderate persistent asthma Constipation History of pulmonary embolism Obesity hypoventilation syndrome Chronic anticoagulation Acute bronchitis Pulmonary vascular congestion Acute on chronic respiratory failure with hypoxia (Acute) COPD exacerbation (Acute) Right knee pain Nasal fracture Rib fractures (Acute) COPD (chronic obstructive pulmonary disease) (Acute) Medical History Acute exacerbation of chronic obstructive pulmonary disease Heart failure with preserved ejection fraction Hypokalemia Tobacco abuse Opiate dependence Dyspnea Diabetes Multiple myeloma Last chemotherapy 2017 Follows with medical oncology in [facility] Acute heart failure with preserved ejection fraction (HFpEF) Asthma Surgical History No pertinent past surgical history Family History (Updated 09/30/23 @ 19:10 by Petra Chan MD) Sister Asthma Social History Smoking Status: Current every day smoker Tobacco Type: Cigarettes Cigarettes Per Day: 1 cigarette per day; Second Hand Exposure: No; Do You Dip or Chew Tobacco: No; Tobacco Cessation Education Requested by Patient: No Hx Alcohol Use: No Hx Substance Use: No Preferred Language: Mongolian Communication Ability: Effective Electric Power Machine Operator Required: No Beliefs That Will Affect Care: None Current Living Situation: Family Current Living Situation Comment: lives with sister temporarily Other Information That Helps Us Care for You: No Feels Safe at Home: Yes Safety Concerns: Feels Safe At This Time Assistive Devices: Nebulizer and Oxygen - at Night Review of Systems Review of Systems: All systems reviewed & are unremarkable except as noted in HPI & below Physical Exam Constitutional: WD/WN, vitals as above Respiratory: normal respiratory effort; no labored breathing and no cough Auscultation: lungs clear to auscultation bilaterally; no crackles, no rhonchi and no wheezes Cardiovascular: Rate/Rhythm: regular rate and regular rhythm Heart Sounds: no murmur Extremities: + edema (1+ pitting edema of the ankles and distal tibia bilaterally) Psychiatric: Orientation: alert and oriented x 3 Affect: + anxious affect Mood: + anxious mood Results & Data Results & Data Vital Signs (Past 12 Hours) Vital Signs Temp Pulse Pulse Resp BP BP Pulse Ox 09/30/23 06:05 97 09/30/23 06:05 89 L 09/30/23 06:05 105 H 22 105/71 97 09/30/23 05:46 107 H 09/30/23 05:26 36.9 C 115 H 24 129/80 93 O2 Del Method O2 Flow Rate 09/30/23 06:05 Nasal Cannula 3 09/30/23 06:05 Room Air 09/30/23 06:05 Nasal Cannula 2 09/30/23 05:46 06/05/24 05:26 Room Air Laboratory Results CBC, coags, VBG, BMP, troponin, LFTs reviewed: 09/30/23 09/30/23 09/30/23 Range/Units 18:26 16:38 16:36 WBC (4.8-10.8) K/ul RBC (4.20-5.40) M/uL Hgb (12.0-16.0) g/dl Hct (37.0-47.0) % MCV (80.0-100.0) fL MCH (25.0-34.0) pg MCHC (32.0-36.0) g/dL RDW Std Deviation (36.4-46.3) fL RDW Coeff of Malick (11.5-14.5) % Plt Count (130-400) K/uL MPV (9.4-12.4) fL Immature Gran % (Auto) % Neut % (Auto) % Lymph % (Auto) % [place] % (Auto) % Eos % (Auto) % Baso % (Auto) % Neut # (Auto) (1.40-6.50) K/uL Lymph # (Auto) (1.20-3.40) K/uL [place] # (Auto) (0.11-0.59) K/uL Eos # (Auto) (0.00-0.50) K/uL Baso # (Auto) (0.00-0.20) K/uL Immature Gran # (Auto) (0.01-0.20) K/uL PT INR APTT PTT Ratio VBG pH (7.36-7.41) VBG pCO2 (38-50) mmHg VBG pO2 mmHg VBG HCO3 mmol/L VBG O2 Saturation % VBG Base Excess mEq/L Sodium (136-145) mmol/L Potassium (3.5-5.1) mmol/L Chloride (98-107) mmol/L Carbon Dioxide (21-32) mmol/L Anion Gap (3-11) BUN (6-23) mg/dl Creatinine (0.6-1.2) mg/dl Est Cr Clr Drug Dosing ml/min Est GFR ( Amer) ml/min Est GFR (Non-Af Amer) ml/min BUN/Creatinine Ratio (10-20) Glucose (70-99(Fasting)) mg/dl POC Glucose 336 H* 407 H* 375 H* (70-99) mg/dl Calcium (8.6-10.3) mg/dl Total Bilirubin (0.2-1.0) mg/dl AST (13-39) U/L ALT (7-52) U/L Alkaline Phosphatase (34-104) U/L Troponin I High Sens (0-14) pg/ml B-Natriuretic Peptide (0-100) pg/ml Total Protein (6.0-8.3) gm/dl Albumin (3.4-5.0) gm/dl Globulin (2.5-4.0) gm/dl Albumin/Globulin Ratio (0.9-2) 09/30/23 09/30/23 09/30/23 Range/Units 11:37 11:36 11:35 WBC (4.8-10.8) K/ul RBC (4.20-5.40) M/uL Hgb (12.0-16.0) g/dl Hct (37.0-47.0) % MCV (80.0-100.0) fL MCH (25.0-34.0) pg MCHC (32.0-36.0) g/dL RDW Std Deviation (36.4-46.3) fL RDW Coeff of Malick (11.5-14.5) % Plt Count (130-400) K/uL MPV (9.4-12.4) fL Immature Gran % (Auto) % Neut % (Auto) % Lymph % (Auto) % [place] % (Auto) % Eos % (Auto) % Baso % (Auto) % Neut # (Auto) (1.40-6.50) K/uL Lymph # (Auto) (1.20-3.40) K/uL [place] # (Auto) (0.11-0.59) K/uL Eos # (Auto) (0.00-0.50) K/uL Baso # (Auto) (0.00-0.20) K/uL Immature Gran # (Auto) (0.01-0.20) K/uL PT INR APTT PTT Ratio VBG pH (7.36-7.41) VBG pCO2 (38-50) mmHg VBG pO2 mmHg VBG HCO3 mmol/L VBG O2 Saturation % VBG Base Excess mEq/L Sodium (136-145) mmol/L Potassium (3.5-5.1) mmol/L Chloride (98-107) mmol/L Carbon Dioxide (21-32) mmol/L Anion Gap (3-11) BUN (6-23) mg/dl Creatinine (0.6-1.2) mg/dl Est Cr Clr Drug Dosing ml/min Est GFR ( Amer) ml/min Est GFR (Non-Af Amer) ml/min BUN/Creatinine Ratio (10-20) Glucose (70-99(Fasting)) mg/dl POC Glucose 391 H* 391 H* (70-99) mg/dl Calcium (8.6-10.3) mg/dl Total Bilirubin (0.2-1.0) mg/dl AST (13-39) U/L ALT (7-52) U/L Alkaline Phosphatase (34-104) U/L Troponin I High Sens 14.8 H D (0-14) pg/ml B-Natriuretic Peptide (0-100) pg/ml Total Protein (6.0-8.3) gm/dl Albumin (3.4-5.0) gm/dl Globulin (2.5-4.0) gm/dl Albumin/Globulin Ratio (0.9-2) 09/30/23 09/30/23 09/30/23 Range/Units 07:24 06:32 06:27 WBC (4.8-10.8) K/ul RBC (4.20-5.40) M/uL Hgb (12.0-16.0) g/dl Hct (37.0-47.0) % MCV (80.0-100.0) fL MCH (25.0-34.0) pg MCHC (32.0-36.0) g/dL RDW Std Deviation (36.4-46.3) fL RDW Coeff of Malick (11.5-14.5) % Plt Count (130-400) K/uL MPV (9.4-12.4) fL Immature Gran % (Auto) % Neut % (Auto) % Lymph % (Auto) % [place] % (Auto) % Eos % (Auto) % Baso % (Auto) % Neut # (Auto) (1.40-6.50) K/uL Lymph # (Auto) (1.20-3.40) K/uL [place] # (Auto) (0.11-0.59) K/uL Eos # (Auto) (0.00-0.50) K/uL Baso # (Auto) (0.00-0.20) K/uL Immature Gran # (Auto) (0.01-0.20) K/uL PT 11.2 INR 1.0 APTT 32 H PTT Ratio 1.2 VBG pH 7.45 H (7.36-7.41) VBG pCO2 49 (38-50) mmHg VBG pO2 74 mmHg VBG HCO3 34 mmol/L VBG O2 Saturation 96.7 % VBG Base Excess 8.6 mEq/L Sodium (136-145) mmol/L Potassium (3.5-5.1) mmol/L Chloride (98-107) mmol/L Carbon Dioxide (21-32) mmol/L Anion Gap (3-11) BUN (6-23) mg/dl Creatinine (0.6-1.2) mg/dl Est Cr Clr Drug Dosing ml/min Est GFR ( Amer) ml/min Est GFR (Non-Af Amer) ml/min BUN/Creatinine Ratio (10-20) Glucose (70-99(Fasting)) mg/dl POC Glucose (70-99) mg/dl Calcium (8.6-10.3) mg/dl Total Bilirubin (0.2-1.0) mg/dl AST (13-39) U/L ALT (7-52) U/L Alkaline Phosphatase (34-104) U/L Troponin I High Sens 19.1 H (0-14) pg/ml B-Natriuretic Peptide (0-100) pg/ml Total Protein (6.0-8.3) gm/dl Albumin (3.4-5.0) gm/dl Globulin (2.5-4.0) gm/dl Albumin/Globulin Ratio (0.9-2) 09/30/23 Range/Units 05:59 WBC 13.83 H (4.8-10.8) K/ul RBC 5.31 (4.20-5.40) M/uL Hgb 14.2 (12.0-16.0) g/dl Hct 43.5 (37.0-47.0) % MCV 81.9 (80.0-100.0) fL MCH 26.7 (25.0-34.0) pg MCHC 32.6 (32.0-36.0) g/dL RDW Std Deviation 49.8 H (36.4-46.3) fL RDW Coeff of Malick 17.6 H (11.5-14.5) % Plt Count 231 (130-400) K/uL MPV 9.7 (9.4-12.4) fL Immature Gran % (Auto) 0.7 % Neut % (Auto) 80.8 % Lymph % (Auto) 11.9 % [place] % (Auto) 5.0 % Eos % (Auto) 1.3 % Baso % (Auto) 0.3 % Neut # (Auto) 11.18 H (1.40-6.50) K/uL Lymph # (Auto) 1.65 (1.20-3.40) K/uL [place] # (Auto) 0.69 H (0.11-0.59) K/uL Eos # (Auto) 0.18 (0.00-0.50) K/uL Baso # (Auto) 0.04 (0.00-0.20) K/uL Immature Gran # (Auto) 0.09 (0.01-0.20) K/uL PT Cancelled INR Cancelled APTT Cancelled PTT Ratio Cancelled VBG pH (7.36-7.41) VBG pCO2 (38-50) mmHg VBG pO2 mmHg VBG HCO3 mmol/L VBG O2 Saturation % VBG Base Excess mEq/L Sodium 139 (136-145) mmol/L Potassium 3.3 L (3.5-5.1) mmol/L Chloride 96 L (98-107) mmol/L Carbon Dioxide 32 (21-32) mmol/L Anion Gap 11 (3-11) BUN 16 (6-23) mg/dl Creatinine 0.82 (0.6-1.2) mg/dl Est Cr Clr Drug Dosing 75.2 ml/min Est GFR ( Amer) 88.9 ml/min Est GFR (Non-Af Amer) 76.7 ml/min BUN/Creatinine Ratio 19.5 (10-20) Glucose 158 H (70-99(Fasting)) mg/dl POC Glucose (70-99) mg/dl Calcium 8.2 L (8.6-10.3) mg/dl Total Bilirubin 0.4 (0.2-1.0) mg/dl AST 15 (13-39) U/L ALT 17 (7-52) U/L Alkaline Phosphatase 90 (34-104) U/L Troponin I High Sens 20.8 H (0-14) pg/ml B-Natriuretic Peptide 57 (0-100) pg/ml Total Protein 7.1 (6.0-8.3) gm/dl Albumin 4.0 (3.4-5.0) gm/dl Globulin 3.1 (2.5-4.0) gm/dl Albumin/Globulin Ratio 1.3 (0.9-2) Diagnostic Findings Chest x-ray and CT chest images personally reviewed and agree with the following: Chest X-Ray 09/30/23 05:58 SINGLE VIEW CHEST CLINICAL HISTORY: Atypical chest pain. FINDINGS: An AP, portable, upright chest radiograph is compared to study dated 09/25/2023. Correlation is made with chest CT dated 06/21/2002. The cardiomediastinal silhouette is top normal for projection. Chronic interstitial thickening is similar to previous. There is bibasilar scarring/atelectasis. No airspace consolidation or large pleural effusion is identified. No pneumothorax is seen. The skeletal structures are osteopenic. An expansile lesion is again seen within the right anterior fourth rib. IMPRESSION: No acute cardiopulmonary abnormality is identified. ACT 112: Negative or not required by law. Electronically signed by: Cayetano Espinoza M.D. 09/30/2023 6:[address] 09/30/23 07:33 CT chest diagnostic wo con CT DOSE: 925.26 mGy.cm HISTORY: hypoxia,COPD,pulm nodules TECHNIQUE: Multiaxial CT images of the chest were performed without contrast. A dose lowering technique was utilized adhering to the principles of ALARA. COMPARISON: Chest CT 06/21/2022. FINDINGS: The central airways are patent. No pneumothorax. No pleural effusions. Small focus of consolidation within the base of the lingula and small bibasilar linear densities persist. This favors subsegmental atelectasis are scarring. There are new small scattered groundglass airspace opacities within the upper lobes most pronounced on the right and small patchy airspace opacities within the base of the left lower lobe. This favors a mild pneumonia. A few scattered tree-in-bud nodular opacities favor mild infectious bronchiolitis. Stable expansile right anterior fourth rib lesion. There are old, healed right rib fractures. No acute fractures within the chest. Stable irregular trabecular pattern at T10 and a stable 18 mm lucent lesion at T2. No new osseous lesions identified. Limited views the upper abdomen demonstrate a normal liver and spleen. Prior cholecystectomy. Nodular thickening of the left adrenal gland, unchanged. Normal right adrenal gland. Normal esophagus. The heart is normal in size. No pericardial effusion. Moderate to severe coronary artery calcifications. Normal caliber thoracic aorta. No mediastinal or hilar lymphadenopathy. IMPRESSION: 1. There are new small scattered groundglass airspace opacities within the upper lobes most pronounced on the right and small patchy airspace opacities within the base of the left lower lobe. This favors a mild pneumonia. 2. Stable osseous lesions including the expansile right anterior fourth rib lesion. No new osseous lesions identified. 3. Scattered tree-in-bud nodular opacities suggestive of a mild infectious bronchiolitis. 4. Additional findings as described above. ACT 112: Negative or not required by law. Electronically signed by: Chester Salas M.D. 09/30/2023 10:34 AM ECG Additional Comments: ECG on 09/30/2023 at 5:46 AM with sinus tachycardia, rate 107, no ischemic changes Code Status & VTE Plan Code Status Full code VTE Prophylaxis Plan VTE Prophylaxis will be ordered: Yes PG Care Time/CCT Total # of Minutes Spent Total Time Spent with Patient: Total time spent is greater than 50% in coordination of care (as documented) at patient's floor/unit and/or counseling patient: Coding Level of Care Code 72319 INT INP/OBS CARE 3MIN Diagnoses COPD (chronic obstructive pulmonary disease) J44.9 COPD type: unspecified COPD Chronic respiratory failure with hypoxia and hypercapnia J96.11; J96.12 Chronic heart failure with preserved ejection fraction I50.32 Heart failure chronicity: chronic Type 2 diabetes mellitus without complication, with long-term current use of insulin E11.9; Z79.4 Diabetes mellitus type: type 2 Diabetes mellitus exterminator termite insulin use: with chcf use Diabetes mellitus complication status: without complication Generalized anxiety disorder F41.1 History of pulmonary embolism Z86.711 Hypokalemia E87.6 Multiple myeloma C90.00 Multiple myeloma remission status: unspecified (1) COPD (chronic obstructive pulmonary disease) COPD type: unspecified COPD Qualified Code(s): J44.9 - Chronic obstructive pulmonary disease, unspecified (3) Heart failure with preserved ejection fraction Heart failure chronicity: chronic Qualified Code(s): I50.32 - Chronic diastolic (congestive) heart failure (4) Diabetes Diabetes mellitus type: type 2 Diabetes mellitus chcf insulin use: with exterminator termite use Diabetes mellitus complication status: without complication Qualified Code(s): E11.9 - Type 2 diabetes mellitus without complications; Z79.4 - manager terminal (current) use of 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
[2023-09-30] MEDS ORDERED: CARBOHYDRATES FOR HYPOGLYCEMIA PO PRN (10:36)
[2023-09-30] MEDS ORDERED: MELATONIN 3 MG TAB PO PRN (10:36)
[2023-09-30] MEDS ORDERED: ACETAMINOPHEN 325 MG TAB PO PRN (10:36)
[2023-09-30] MEDS ORDERED: GLUCAGON FOR INJ 1 MG VIAL SQ PRN (10:36)
[2023-09-30] MEDS ORDERED: guaiFENesin 600 MG TABCR PO PRN (10:36)
[2023-09-30] MEDS ORDERED: ONDANSETRON INJ 2 MG/ML 2 ML VIAL IV PRN (10:36)
[2023-09-30] MEDS ORDERED: GLUCOSE 10 TAB/TUBE PO PRN (10:36)
[2023-09-30] MEDS ORDERED: DEXTROSE 50% 50 ML SYRINGE IV PRN (10:36)
[2023-09-30] MEDS ORDERED: POLYETHYLENE (MIRALAX) 17 GM PACK PO PRN (10:36)
[2023-09-30] MEDS ORDERED: GLUCOSE 40% GEL 15 GM TUBE PO PRN (10:36)
--- NOTE | 2023-09-30 10:36 | CT Scan Report ---
CT chest diagnostic wo con CT DOSE: 925.26 mGy.cm HISTORY: hypoxia,COPD,pulm nodules TECHNIQUE: Multiaxial CT images of the chest were performed without contrast. A dose lowering techni que was utilized adhering to the principles of ALARA. COMPARISON: Chest CT 06/21/2022. FINDINGS: The central airways are patent. No pneumothorax. No pleural effusions. Small focus of conso lidation within the base of the lingula and small bibasilar linear densities persist. This favors sub segmental atelectasis are scarring. There are new small scattered groundglass airspace opacities with in the upper lobes most pronounced on the right and small patchy airspace opacities within the base o f the left lower lobe. This favors a mild pneumonia. A few scattered tree-in-bud nodular opacities fa vor mild infectious bronchiolitis. Stable expansile right anterior fourth rib lesion. There are old, healed right rib fractures. No acute fractures within the chest. Stable irregular trabecular pattern at T10 and a stable 18 mm lucent lesion at T2. No new osseous lesions identified. Limited views the u pper abdomen demonstrate a normal liver and spleen. Prior cholecystectomy. Nodular thickening of the left adrenal gland, unchanged. Normal right adrenal gland. Normal esophagus. The heart is normal in s ize. No pericardial effusion. Moderate to severe coronary artery calcifications. Normal caliber thora cic aorta. No mediastinal or hilar lymphadenopathy. IMPRESSION: 1. There are new small scattered groundglass airspace opacities within the upper lobes most pronounce d on the right and small patchy airspace opacities within the base of the left lower lobe. This favor s a mild pneumonia. 2. Stable osseous lesions including the expansile right anterior fourth rib lesion. No new osseous le sions identified. 3. Scattered tree-in-bud nodular opacities suggestive of a mild infectious bronchiolitis. 4. Additional findings as described above. ACT 112: Negative or not required by law. Electronically signed by: Chester Salas M.D. 09/30/2023 10:34 AM
[2023-09-30] MEDS: IPRATROPIUM BROMIDE NEB SOLN 0.02% 0.5MG/2.5ML VIAL NEB SCH ×2 (11:21→19:58)
[2023-09-30] MEDS: LEVALBUTEROL 1.25 MG/3 ML NEB INH SCH (11:21)
[2023-09-30] MEDS: ALPRAZolam 0.5 MG TABLET PO SCH (11:58)
[2023-09-30] MEDS: POTASSIUM CHLORIDE CRTAB 20 MEQ TABCR PO SCH (11:58)
[2023-09-30] MEDS: MONTELUKAST SODIUM 10 MG TABLET PO SCH (11:59)
[2023-09-30] MEDS: BUMETANIDE 1 MG TAB PO SCH (11:59)
[2023-09-30] MEDS: BUPRENORPHINE/NALOXONE 8/2 MG TAB SL SCH ×2 (11:59→21:02)
[2023-09-30] MEDS: CITALOPRAM 20 MG TAB PO SCH (11:59)
[2023-09-30] MEDS: FLUTICASONE PROPIONATE NA SPR 16 GM BTL NAE SCH (12:00)
[2023-09-30] MEDS: ENOXAPARIN 150 MG/ML SYR SQ SCH (12:00)
[2023-09-30] MEDS: UMECLIDINIUM/VILANTEROL 62.5/25MCG 7 PUFFS/INHALER INH SCH (12:01)
[2023-09-30] MEDS: metOLazone 2.5 MG TABLET PO SCH (12:01)
[2023-09-30] MEDS: FLUTICASONE FUROATE 200MCG 14 PUFFS/INHALER INH SCH (12:02)
[2023-09-30] MEDS: INSULIN ASPART PER UNIT CHARGE SC SCH (12:55)
[2023-09-30] MEDS: LANTUS PER UNIT CHARGE SQ SCH (12:56)
[2023-09-30] MEDS: levoFLOXacin/D5W 750 MG/150 ML BAG IV SCH (13:45)
[2023-09-30] MEDS: INSULIN HUMAN REGULAR PER UNIT 10 UNITS in SYRINGE 9.9 ML IV STA (17:31)
[2023-09-30] MEDS: BUMETANIDE 1 MG in SYRINGE 0 ML IV ONE (19:06)
[2023-09-30] MEDS: INSULIN HUMAN REGULAR PER UNIT 5 UNITS in SYRINGE 4.95 ML IV STA (19:06)
[2023-09-30] MEDS: QUEtiapine FUMARATE 200 MG TAB PO SCH (21:02)
[2023-10-01 06:54] LABS: BUN Creatinine Ratio 32.9 (10-20); Calcium 8.2 mg/dl (8.6-10.3); Creatinine Clr Calc Pharmacy 78.1 ml/min; Est GFR (Non-African American) 80.2 ml/min; Magnesium 1.9 mg/dl (1.7-2.4); Potassium 3.1 mmol/L (3.5-5.1)
[2023-10-01] MEDS: predniSONE 20 MG TAB PO SCH (08:03)
[2023-10-01] MEDS: BUPRENORPHINE/NALOXONE 2/0.5MG 1 TAB PO SCH (08:38)
[2023-10-01] MEDS: BUPRENORPHINE/NALOXONE 8/2 MG TAB SL SCH (08:39)
[2023-10-01] MEDS: POTASSIUM CHLORIDE CRTAB 20 MEQ TABCR PO STA (08:39)
--- NOTE | 2023-10-01 17:08 | Discharge Summary ---
Date of Service October 01, 2023 Admission HPI Per Admitting Provider This is a 63-year-old female with a past medical history including severe COPD, chronic hypoxic respiratory failure using 3 LNC at bedtime, chronic ongoing tobacco use, opiate dependence on Suboxone, HFpEF, severe anxiety on chronic xanax, obesity hypoventilation syndrome, DMII, VTE on Lovenox, Multiple myeloma s/p Stem cell tx, and hypokalemia who presents to the ED on 09/30/2023 with a chief complaint of shortness of breath and ankle swelling. She has been admitted now 9 times in the last 5 months and 11 times in the last 9 months all for SOB/COPD/CHF related hospitalizations. She was just discharged by myself ye sterday and was stable at that time. Patient reports that as soon as she got home yesterday, she noticed that her ankles were swollen and she started having shortness of breath. She took her usual Bumex, her usual nebulizers, claims that she did not smoke any cigarettes when she got home, and tried to make it through the night, but the shortness of breath persisted. Her sister was leaving for work this morning and she decided to hitch a ride to the ER with her in case things got worse so she would not be stranded at home. She does admit that anxiety likely plays a large role in her shortness of breath. In the ER, she had fairly unremarkable labs except mild hypokalemia and her usual chronic leukocytosis and mildly elevated troponin at her baseline of 20. CXR unremarkable as well. She briefly was hypoxic to 89% and was placed on her usual nighttime O2 of 3LNC. She apparently did not get her Trilogy machine yesterday after discharge despite the fact that our watch caser confirmed it was ready for delivery. She reports that she called [facility] and they told her that she has been going without the machine for this long, and that she could just get it the next day. In ER, she was given IV steroids, bronchodilator neb,potassium 40 meq po x 1, and IV Zofran. She will be brought in yet again for a COPD exacerbation and a 2 step walk test for home qualification of supplemental O2. Admission Exam Per Admitting Provider Constitutional: WD/WN, vitals as above Respiratory: normal respiratory effort; no labored breathing and no cough Auscultation: lungs clear to auscultation bilaterally; no crackles, no rhonchi and no wheezes Cardiovascular: Rate/Rhythm: regular rate and regular rhythm Heart Sounds: no murmur Extremities: + edema (1+ pitting edema of the ankles and distal tibia bilaterally) Psychiatric: Orientation: alert and oriented x 3 Affect: + anxious affect Mood: + anxious mood Principal Diagnosis Anxiety Discharge Exam Constitutional: chronically ill-appearing, no acute distress HEENT: NCAT, no conjunctival injection CV: extremities well-perfused, no LE edema Resp: no increased work of breathing MSK: no gross deformities appreciated Skin: warm, dry, no rash appreciated Neuro: alert, oriented, no focal neurologic deficit appreciated Discharge Data Allergies Allergy/AdvReac Type Severity Reaction Status Date / Time codeine Allergy Severe Anaphylaxis Verified 09/25/23 16:53 Iodinated Contrast Media Allergy Severe Anaphylaxis Verified 09/25/23 16:53 shellfish derived Allergy Severe Anaphylaxis Verified 09/25/23 16:53 tramadol Allergy Intermediate ITCHINESS Verified 09/25/23 16:53 iohexol Allergy Unknown CAN'T Verified 09/25/23 16:53 REMEMBER diphenhydramine AdvReac Severe Anxiety Verified 09/25/23 16:53 [From Benadryl] montelukast [From Singulair] AdvReac Intermediate Anxiety Verified 09/25/23 16:53 promethazine AdvReac Intermediate Anxiety Verified 09/25/23 16:53 Consultations 09/30/23 07:08 ED Decision to Admit Stat Ordered Studies 09/30/23 07:33 CT chest diagnostic wo con Routine Hospital Course (1) Multiple myeloma: (2) Diabetes: (3) Hypokalemia: (4) Heart failure with preserved ejection fraction: (5) COPD (chronic obstructive pulmonary disease): (6) Shortness of breath: (7) Chronic respiratory failure with hypoxia and hypercapnia: (8) Generalized anxiety disorder: (9) Moderate persistent asthma: (10) History of pulmonary embolism: (11) Obesity hypoventilation syndrome: Plan #COPD (chronic obstructive pulmonary disease): SOB likely mostly or entirely anxiety related this admission CT chest ordered which does show some infiltrates which could be consistent with pneumonia although she has been afebrile. She has a chronic leukocytosis, no sputum production, and procalcitonin negative She has not yet received her trilogy machine which was ordered last admission - delivered to pt day of discharge Given IV steroids with resultant BSG increase - dc'd as this does not appear to be COPD in exacerbation Pt has been counseled re: taking Celexa for strong anxiety component to her symptomatology Pt will need outpatient clarification of her home inhaler regimen - pt on Trelegy (LAMA,LABA, ICS), clarify rescue inhaler; instruct pt not to take any other maintenance Rec'd dose of Levaquin here, unlikely true infectious etiology at this time Continue to encourage smoking cessation #Chronic respiratory failure with hypoxia and hypercapnia/ELEUTERIO/OHS 3L O2 HS at baseline Trilogy machine (cpap/bipap) delivered day of discharge Encourage regular use 2 step negative for ambulatory O2 #Heart failure with preserved ejection fraction: LE edema resolved This admission likely related mostly to venous stasis changes Bumex x1 given Pt anchored that this swelling is related to HF and diuretics are needed #Diabetes: With severe hyperglycemia resulting from IV steroid use in the ER, blood sugars in the low 400s. BSG improving by time of discharge Resume home regimen Hemoglobin A1c 8.5% #Generalized anxiety disorder (Severe): Major contributor to numerous hospitalizations Difficult home life - living with sister and unhappy about it Hoping to move home to [place] but timeline is unclear Not taking prescribed celexa Not seeing a therapist - reports she has one in [place] On Xanax 3 times daily #History of pulmonary embolism: Daily Lovenox 1.5 mg/kg once daily #Hypokalemia: Secondary to diuretics Continue potassium chloride 20 mill equivalents p.o. twice daily May consider increasing dose if repeat BMP remains low #Multiple myeloma: With a history of stem cell transplant 10 years ago Does have an expansile lesion in the right fourth rib unchanged from previous CT 1 year ago She has an appointment pending with her oncologist back in her hometown of [place] in 1 month Unclear if her persistent leukocytosis is related to her multiple myeloma Follow-up with hematology/oncology Total Time Total Time Spent Total Time Spent (In Minutes): <30 Discharge Plan Discharge Items Patient Disposition: Home - Self-Care Reason For Visit: HYPOXIA, COPD Discharge Diagnosis: Anxiety Activity: Resume your previous activity Non-emergency contact: Primary Care Provider Call non-emergency contact if: you have any medication questions Follow-up/Referrals: Radha Barboza PA-C [Primary Care Provider] - 10/07/23 10:45 am Diet: Carb Consistent or DM2 and Heart Healthy Addtl Attending Provider Instructions: You were admitted to the hospital for shortness of breath. We do not believe that you were having an exacerbation of your COPD or any heart failure symptoms. This was likely related to anxiety. While you were here we were able to get your CPAP machine delivered. It is very important that you use this every night. A discharge summary will be sent to your primary care physician to ensure continuity of care. Please bring this discharge summary with you to your next office appointment so that your provider can review it at that time. Follow-up appointments: You have an appointment with Dr. Brennan at [facility] on 10/02/23 at 4:05PM. If you are unable to make this appointment, or have any other questions, their office can be reached at . Keep all your follow-up appointments as already scheduled. If you cannot make an appointment, notify your provider. Medications: Your medication list has been reviewed and reconciled upon discharge to ensure accuracy and continuity of care. An updated list of all your medications is included with your hospital discharge paperwork. Please review this list closely, and make note of any changes. Take your medications as instructed; do not skip a dose of your medicines. Make sure all of your doctors know every medicine you are taking (including wtvi-[id number]-[id number] medicines, vitamins, and supplements). Call your primary care provider before taking any new medicines (including dddf-plb-kamhvms medicines, vitamins, and supplements), because some of these may interact with your current medications, or may make your symptoms worse. Tell your primary care provider if you cannot afford your medications. CONTACT YOUR PRIMARY CARE PROVIDER if you experience any of the following: Increased shortness of breath Difficulty following your treatment plan, or difficulty taking medications CALL 911 OR GO TO THE EMERGENCY DEPARTMENT if you experience any of the following: Sudden, severe abdominal pain or nausea/vomiting Severe chest pain, or chest pain that radiates (moves) to your jaw or arm Sudden, severe shortness of breath or difficulty breathing Thank you for allowing us to participate in your care. Pending Studies at Discharge: No Stand-Alone Forms: [facility], Pain - Opioid Pain Management Medications and DC Order Prescriptions: Continued ondansetron HCl 4 mg Tablet 4 mg PO Q8H PRN (Reason: NAUSEA/VOMITING) quetiapine 200 mg tablet 200 mg PO HS nystatin 100,000 unit/gram Powder 1 applic TOPICAL BID PRN (Reason: UNDER BREASTS NEEDED.) buprenorphine-naloxone 8-2 mg film 1 film sublingual QAM insulin glargine 100 unit/mL (3 mL) insulin pen 60 unit SUBCUT QAM enoxaparin 150 mg/mL syringe 150 mg subcut QAM insulin aspart U-100 [Novolog FlexPen U-100 Insulin] 100 unit/mL (3 mL) insulin pen 10 unit SUBCUT AC Rx Instructions: Plus sliding scale levalbuterol HCl 1.25 mg/3 mL solution for nebulization 1.25 mg INHALATION TID PRN (Reason: Shortness Of Breath Or Wheezing) ipratropium bromide 0.02 % solution 3 ml continuous nebulization QID alprazolam 0.5 mg tablet 0.5 mg PO TID Qty: 14 0RF Rx Instructions: pt requesting to take same time as suboxone albuterol sulfate 90 mcg/actuation HFA aerosol inhaler 2 puff INHALATION UD PRN (Reason: Shortness Of Breath Or Wheezing) montelukast [Singulair] 10 mg tablet 10 mg PO DAILY Qty: 30 0RF citalopram [Celexa] 10 mg tablet 10 mg PO DAILY Qty: 30 0RF bumetanide 2 mg tablet 2 mg PO BID Qty: 60 0RF Rx Instructions: morning and lunch metolazone 5 mg tablet 2.5 mg PO 3XWK Qty: 12 0RF Rx Instructions: 5 mg orally on Mondays, Wednesdays, and Fridays potassium chloride 20 mEq Tablet,Er Particles/Crystals 20 meq PO BID Qty: 120 0RF buprenorphine-naloxone 8-2 mg film 0.5 film sublingual QPM Rx Instructions: Is tapering down guaifenesin [Mucinex] 600 mg tablet extended release 12hr 600 mg PO Q12 PRN (Reason: Congestion) Rx Instructions: OTC fluticasone propionate [Flonase Allergy Relief] 50 mcg/actuation spray,suspension 1 spray intranasal BID Qty: 0 0RF Rx Instructions: administer into each nostril Trelegy Ellipta 200-62.5-25 mcg blister with device 1 ea INHALATION QAM Qty: 60 0RF levalbuterol tartrate 45 mcg/actuation HFA aerosol inhaler 2 puff INHALATION Q4 PRN (Reason: WHEEZE) Qty: 15 0RF Discharge Orders: Discharge Order (Routine); Ordered 10/01/23 Ordered By: Cam Barbour/Other Patient Handouts: Hypokalemia Dc Admission Data Admit Date/Time: 09/30/23 07:33 Attending Provider: Robby Dickinson Admit Provider: Petra Chan Primary Care Provider: Radha Barboza Other Providers: Petra Chan Other Interventions: Discharge Summary Assessment (RN) Last Done: 10/01/23 16:31 Supervising Physician Co-Signing Physician Notes I personally examined the patient and verified all rosario points of history and exam, discussed case, and agree with decision making with Dr Dianna alberts about the same. Does not want to go home unless trilogy is brought to the hospital. Discussed with case management and this was arranged. Vitals noted, in general she is awake and alert anxious but no physical distress. Absolutely no conversational dyspnea and massive pressured speech. Breathing unlabored no accessory muscle use. Skin without rashes pallor or icterus. Bilateral lower extremity edema probably 1+. Some venous stasis changes. No focal neurodeficits. Dyspneachronically her dyspnea is often an interplay between her chronic lung disease and her anxiety, but her current pulse oxes and blood gas suggest that she is almost entirely dyspnea acutely from anxietyand really her COPD is more in its chronic baseline at this point. We discussed this frankly. Discussed that it would be safe to get her home, discussed that it is not at all inappropriate for her to seek care to tease apart whether her shortness of breath is anxiety or COPD, but that when it is anxiety mediated, she is likely better off with less aggressive medical care. Trilogy set up and brought to the hospital. Medically stable for home. We did get her set up with an office follow-up at her PCPs office tomorrow afternoon. As far as her chronic anxiety, we discussed that having some degree of certainty in life would probably be very helpfulthat she is in a tolbert zone of feeling like she is going to be moving, but has not yet, and that if her most recent attempt at moving follow-through, it would be reasonable to resign herself to setting up roots so that she is no longer living in uncertainty sparking worse anxiety. Also discussed that living with someone besides her sister may be helpful. safe/stable for home. Resident Activity Tracking Resident Involvement: Resident Care Provided Care Provided: Adult Hospital Medicine
--- NOTE | 2023-10-01 18:31 | Billing Data ---
Date of Service October 01, 2023 Coding Level of Care Code 34178 IN/OBS DISCH 30 MIN/LESS
[2023-10-01] MEDS ORDERED: POTASSIUM CHLORIDE CRTAB 20 MEQ TABCR PO ONE (21:00)
--- NOTE | 2023-10-03 06:05 | Electrocardiogram Report ---
Test Reason : Blood Pressure : / mmHG Vent. Rate : 107 BPM Atrial Rate : 107 BPM P-R Int : 146 ms QRS Dur : 084 ms QT Int : 320 ms P-R-T Axes : 039 006 061 degrees QTc Int : 427 ms Sinus tachycardia Possible Left atrial enlargement Possible Septal infarct (cited on or before 28-JUL-2023) Inferior infarct (cited on or before 16-AUG-2023) Abnormal ECG When compared with ECG of 25-SEP-2023 10:15, Questionable change in initial forces of Septal leads Confirmed by Roel Willams ([id number]) on 10/03/2023 6:05:05 AM Referred By: Confirmed By:Roel Willams
== END 2023-10-01 17:59 | disposition home or self-care (01) | DRG 880 ==
LOC: SUATTDRO → ED 05:25 → 3W 07:33 → SUATTDRO 07:33 → 3W 10:18

== ENCOUNTER 2023-10-08 16:03 | Inpatient (IN) ==
--- NOTE | 2023-10-08 16:17 | ED Triage Note ---
Date of Service October 08, 2023 Provider in Triage Author: Mine Qiu History of Present Illness This patient was briefly evaluated while in triage. An abbreviated physical exam was performed. This patient is a 63-year-old Female who presents to the ED for evaluation of short of breath, fluid overload. Discharged from hospital a week ago, has had a 6 lb weight gain since then. Has been on diuretics but feels like her symptoms are still getting worse. Denies chest pain, but has been having some palpitations since yesterday and has also been feeling lightheaded. Physical Exam CONSTITUTIONAL: No acute distress. Well appearing. RESPIRATORY: Diffuse expiratory wheezes with bibasilar crackles. Mild tachypnea and accessory muscle use. Equal expansion bilaterally. CARDIOVASCULAR: Regular rate and rhythm. Bilateral lower extremity edema. GASTROINTESTINAL: Soft NEUROLOGIC: Alert and oriented X 4 with normal affect. Patient was visibly short of breath, mildly tachypneic and hypotensive. Initial orders for labs and / or imaging were placed and patient was taken directly to an exam room. Please see further documentation for the full ED course. MDM / Impression Impression Impression: Shortness of breath, Acute hypokalemia, CHF (congestive heart failure)
[2023-10-08 16:45] LABS: Basophils # (auto) 0.06 K/uL (0.00-0.20); Basophils % (auto) 0.4 %; Eosinophils % (auto) 1.4 %; Hematocrit (blood only) 44.6 % (37.0-47.0); Hemoglobin 14.5 g/dl (12.0-16.0); Immature Granulocytes # (auto) 0.16 K/uL (0.01-0.20); Immature Granulocytes % (auto) 1.1 %; Lymphocytes # (auto) 3.39 K/uL (1.20-3.40); Lymphocytes % (auto) 23.3 %; Mean Corpuscular Hemoglobin 26.6 pg (25.0-34.0); Mean Corpuscular Hgb Conc 32.5 g/dL (32.0-36.0); Mean Corpuscular Volume 81.7 fL (80.0-100.0); Mean Platelet Volume 9.8 fL (9.4-12.4); Monocytes # (auto) 0.61 K/uL (0.11-0.59); Monocytes % (auto) 4.2 %; Neutrophils # (auto) 10.12 K/uL (1.40-6.50); Neutrophils % (auto) 69.6 %; Platelet Count 355 K/uL (130-400); RDW Coefficient of Variation 17.9 % (11.5-14.5); RDW Standard Deviation 49.5 fL (36.4-46.3); Red Blood Count 5.46 M/uL (4.20-5.40); White Blood Count 14.54 K/ul (4.8-10.8)
[2023-10-08 17:10] LABS: Alanine Aminotransferase 16 U/L (7-52); Albumin Globulin Ratio 1.3 (0.9-2); Albumin Level 3.9 gm/dl (3.4-5.0); Alkaline Phosphatase 100 U/L (34-104); Anion Gap 8 (3-11); BUN Creatinine Ratio 36.3 (10-20); Bilirubin,Total 0.2 mg/dl (0.2-1.0); Blood Urea Nitrogen 29 mg/dl (6-23); Carbon Dioxide 35 mmol/L (21-32); Chloride 92 mmol/L (98-107); Creatinine Clr Calc Pharmacy 78.8 ml/min; Est GFR (African American) 91.6 ml/min; Globulin 3.1 gm/dl (2.5-4.0); Glucose 125 mg/dl (70-99(Fasting)); Sodium 135 mmol/L (136-145)
[2023-10-08 17:12] LABS: Partial Thromboplastin Time 28 Seconds (21-31); Prothrombin Time 10.7 Seconds (9.0-12.0)
[2023-10-08 17:13] LABS: Base Excess VBG 11.8 mEq/L; HCO3 VBG 39 mmol/L; Oxygen Saturation VBG 72.6 %; PCO2 VBG 58 mmHg (38-50); PO2 VBG 37 mmHg; pH VBG 7.43 (7.36-7.41)
[2023-10-08 17:16] LABS: Troponin I High Sensitivity 18.5 pg/ml (0-14)
--- NOTE | 2023-10-08 17:21 | Emergency Department Note ---
Impression & Plan Shortness of breath, Acute hypokalemia, CHF (congestive heart failure) ED Provider Note HISTORY OF PRESENT ILLNESS: Patient is a 63-year-old female presenting with shortness of breath and weight gain. Patient reports that she was just admitted to the hospital and in the last 6 days has gained 6 pounds. Reports has been taking her Bumex 2 mg twice daily but her weight continues to go up. Reports she has had progressively worsening shortness of breath over the last 6 days. She does not wear any supplemental oxygen throughout the day normally at baseline. She does wear a trilogy at nighttime. She denies any chest pain. Reports that she just feels like she is filling up with fluid and cannot breathe. Denies any fevers. Denies any nausea or vomiting. Reports that she has been having progressively worsening swelling of her bilateral lower extremities and bilateral hands. ROS: as above PHYSICAL EXAM: Constitutional: Patient appears in no acute distress. HENT: Head: Normocephalic and atraumatic. Eyes: EOMI, PERRL Mouth/Throat: Mucous membranes moist. Neck: Trachea midline. Neck supple. Cardiovascular: RRR, No murmurs, rubs or gallops. Intact distal pulses. Pulmonary/Chest: No significant respiratory distress. Patient is conversationally dyspneic. She has coarse breath sounds in the bilateral lower lung soriano. She was hypoxic on room air and started on 3 L nasal cannula. Abdominal: Abdomen soft, no tenderness, rebound or guarding. Musculoskeletal: No tenderness or deformity noted. +2 edema of bilateral lower extremities extending to the mid dailey. Skin: Warm and dry. No rash, erythema, pallor or cyanosis Psychiatric: Appropriate mood and affect for situation. Neurological: Alert and keenly responsive. CN II-XII grossly intact, moving all extremities equally and fully. MDM: - Vitals signs showed hypotension, tachycardia and hypoxia. Patient was placed on 3 L nasal cannula. - History obtained via patient. History as above. - Chronic conditions affecting care: COPD; constipation; anxiety; HFpEF; DM-2; multiple myeloma - Differential diagnoses include, but are not limited to: Congestive heart failure; acute coronary syndrome; COPD/asthma exacerbation; pulmonary edema; pulmonary embolism; pneumonia; pneumothorax; viral syndrome - Order placed for continuous cardiac monitoring. At this time, monitor showed rate of 100 bpm with normal sinus rhythm, per my interpretation. - External medical records reviewed. Discharge summary dated 10/01/2023 was reviewed. Patient was admitted at that time for a COPD exacerbation. - EKG interpreted by myself showed normal sinus rhythm. Rate 95 bpm. QT 370. No acute ischemic changes. - Patient reports she has not taken her evening Bumex. 2 g PO bumex ordered. On review of the patient's chart. She weighed 95.8 kg on 10/01/2023. She weighed 95.9 kg today. - Laboratory workup interpreted by myself showed leukocytosis (WBC 14.54); hypokalemia (K 3.1); stable creatinine; slightly elevated troponin (18.5 - around patient's baseline); normal BNP - Viral respiratory panel negaitve - CXR negative for pneumonia, per my interpretation - VBG slows slight hypercarbia (pCO2 58) - Discussion was had with case consultant about patient's case and need for admission - Hospitalist consulted for admission - [facility] ASSESSMENT AND PLAN: Diagnosis: shortness of breath; acute hypokalemia; CHF Plan: admit Past Med/Surg History Problem List (Updated 10/08/23 @ 19:19 by Neelima Miller MD) CHF (congestive heart failure) (Acute) Acute hypokalemia (Acute) Shortness of breath (Acute) Multiple myeloma Last chemotherapy 2016 Follows with medical oncology in [facility] Diabetes Hypokalemia Heart failure with preserved ejection fraction COPD (chronic obstructive pulmonary disease) (Acute) Shortness of breath (Acute) Generalized anxiety disorder Chronic respiratory failure with hypoxia and hypercapnia Tobacco abuse counseling Chronic hypercapnic respiratory failure Moderate persistent asthma Constipation History of pulmonary embolism Obesity hypoventilation syndrome Chronic anticoagulation Acute bronchitis Pulmonary vascular congestion Acute on chronic respiratory failure with hypoxia (Acute) Right knee pain Nasal fracture Rib fractures (Acute) COPD (chronic obstructive pulmonary disease) (Acute) Medical History Acute exacerbation of chronic obstructive pulmonary disease Heart failure with preserved ejection fraction Hypokalemia Tobacco abuse Opiate dependence Dyspnea Diabetes Multiple myeloma Last chemotherapy 2016 Follows with medical oncology in [facility] Acute heart failure with preserved ejection fraction (HFpEF) Asthma Surgical History No pertinent past surgical history Family History (Updated 09/30/23 @ 19:11 by Petra Chan MD) Sister Asthma Social History Smoking Status: Former smoker Tobacco Type: Cigarettes Cigarettes Per Day: 1 cigarette per day; Second Hand Exposure: No; Do You Dip or Chew Tobacco: No; Hx Alcohol Use: No Hx Substance Use: No Preferred Language: Bahamian Communication Ability: Effective Terminal Worker Required: No Beliefs That Will Affect Care: None Current Living Situation: Family Current Living Situation Comment: lives with sister temporarily Feels Safe at Home: Yes Assistive Devices: Nebulizer and Oxygen - at Night Allergies Allergies Allergy/AdvReac Type Severity Reaction Status Date / Time codeine Allergy Severe Anaphylaxis Verified 09/25/23 16:53 Iodinated Contrast Media Allergy Severe Anaphylaxis Verified 09/25/23 16:53 shellfish derived Allergy Severe Anaphylaxis Verified 09/25/23 16:53 tramadol Allergy Intermediate ITCHINESS Verified 09/25/23 16:53 iohexol Allergy Unknown CAN'T Verified 09/25/23 16:53 REMEMBER diphenhydramine AdvReac Severe Anxiety Verified 09/25/23 16:53 [From Benadryl] montelukast [From Singulair] AdvReac Intermediate Anxiety Verified 09/25/23 16:53 promethazine AdvReac Intermediate Anxiety Verified 09/25/23 16:53 Home Meds Home Medications Medication Instructions Recorded Confirmed buprenorphine 8 mg-naloxone 2 mg 1 film sublingual QAM 05/14/22 09/30/23 sublingual film nystatin 100,000 unit/gram topical 1 applic topical BID PRN UNDER 05/14/22 09/30/23 powder BREASTS NEEDED. ondansetron HCl 4 mg tablet 4 mg PO Q8H PRN NAUSEA/VOMITING 05/14/22 09/30/23 quetiapine 200 mg tablet 200 mg PO HS 05/14/22 09/30/23 insulin glargine 100 unit/mL (3 60 unit subcut QAM 06/21/22 09/30/23 mL) subcutaneous pen ipratropium bromide 0.02 % 3 ml continuous nebulization QID 01/16/23 09/30/23 solution for inhalation levalbuterol HCl 1.25 mg/3 mL 1.25 mg inhalation TID PRN 01/16/23 09/30/23 solution for nebulization Shortness Of Breath Or Wheezing enoxaparin 150 mg/mL subcutaneous 150 mg subcut QAM 05/07/23 09/30/23 syringe insulin aspart U-100 100 unit/mL 10 unit subcut AC 05/07/23 09/30/23 (3 mL) subcutaneous pen (Novolog FlexPen U-100 Insulin aspart) albuterol sulfate 90 mcg/actuation 2 puff inhalation UD PRN Shortness 08/30/23 09/30/23 aerosol inhaler Of Breath Or Wheezing buprenorphine 8 mg-naloxone 2 mg 0.5 film sublingual QPM 09/11/23 09/30/23 sublingual film guaifenesin 600 mg tablet, 600 mg PO Q12 PRN Congestion 09/11/23 09/30/23 extended release 12 hr (Mucinex) Previous Rx's Medication Instructions Recorded alprazolam 0.5 mg tablet 0.5 mg PO TID #14 tabs 08/02/23 fluticasone propionate 50 1 spray intranasal BID nasal 09/15/23 mcg/actuation nasal congestion #0 mL spray,suspension (Flonase Allergy Relief) fluticasone fur. 200 mcg-umeclid 1 ea inhalation QAM #60 ea 09/16/23 62.5 mcg-vilant 25 mcg inhalat.powder (Trelegy Ellipta) levalbuterol tartrate 45 2 puff inhalation Q4 PRN WHEEZE 09/16/23 mcg/actuation aerosol inhaler #15 grams bumetanide 2 mg tablet 2 mg PO BID #60 tabs 09/29/23 citalopram 10 mg tablet (Celexa) 10 mg PO DAILY #30 tabs 09/29/23 metolazone 5 mg tablet 2.5 mg (1/2 x 5 mg) PO 3XWK #12 09/29/23 tabs montelukast 10 mg tablet 10 mg PO DAILY #30 tabs 09/29/23 (Singulair) potassium chloride 20 mEq 20 meq PO BID #120 tabs 09/29/23 tablet,extended release(part/cryst) Results & Data (ED) Vital Signs Vital Signs - 24 hr 10/08/23 16:13 10/08/23 16:23 10/08/23 16:30 Temperature 36.2 C L Temperature Source Temporal Artery Scan Pulse Rate 106 H 97 H Pulse Rate [Apical] 90 Pulse Rate from SpO2 Sensor Pulse Rhythm Regular Regular Respiratory Rate 26 H 24 23 Respiratory Effort / Characteristics Non-Labored Spontaneous Non-Labored Spontaneous Respiratory Depth Normal Normal Respiratory Pattern Regular Blood Pressure 93/64 L Blood Pressure [Left Arm] 124/79 Blood Pressure Mean 73 Blood Pressure Mean [Left Arm] 94 Pulse Oximetry 95 90 89 L Oxygen Delivery Method Room Air Room Air Room Air Oxygen Flow Rate Sepsis Recent Fever Within 48 Hours No Sepsis New/Unexplained Change in Mental Status No Sepsis Action Taken by Nursing No Action Required 10/08/23 16:30 10/08/23 16:42 10/08/23 16:51 Temperature Temperature Source Pulse Rate 97 H 92 H 100 H Pulse Rate [Apical] Pulse Rate from SpO2 Sensor 93 H 92 H 99 H Pulse Rhythm Respiratory Rate 11 L 14 15 Respiratory Effort / Characteristics Respiratory Depth Respiratory Pattern Blood Pressure Blood Pressure [Left Arm] Blood Pressure Mean Blood Pressure Mean [Left Arm] Pulse Oximetry 88 L 93 96 Oxygen Delivery Method Nasal Cannula Oxygen Flow Rate 3 Sepsis Recent Fever Within 48 Hours Sepsis New/Unexplained Change in Mental Status Sepsis Action Taken by Nursing 10/08/23 16:57 10/08/23 17:00 10/08/23 17:03 Temperature Temperature Source Pulse Rate 96 H 101 H Pulse Rate [Apical] Pulse Rate from SpO2 Sensor 96 H 95 H Pulse Rhythm Respiratory Rate 16 18 Respiratory Effort / Characteristics Respiratory Depth Respiratory Pattern Blood Pressure 131/94 Blood Pressure [Left Arm] Blood Pressure Mean 112 Blood Pressure Mean [Left Arm] Pulse Oximetry 95 97 Oxygen Delivery Method Oxygen Flow Rate Sepsis Recent Fever Within 48 Hours Sepsis New/Unexplained Change in Mental Status Sepsis Action Taken by Nursing 10/08/23 17:12 10/08/23 17:15 10/08/23 17:15 Temperature Temperature Source Pulse Rate 98 H 95 H Pulse Rate [Apical] Pulse Rate from SpO2 Sensor 99 H 94 H Pulse Rhythm Respiratory Rate 21 17 Respiratory Effort / Characteristics Respiratory Depth Respiratory Pattern Blood Pressure 125/90 Blood Pressure [Left Arm] Blood Pressure Mean 97 Blood Pressure Mean [Left Arm] Pulse Oximetry 95 97 Oxygen Delivery Method Oxygen Flow Rate Sepsis Recent Fever Within 48 Hours Sepsis New/Unexplained Change in Mental Status Sepsis Action Taken by Nursing 10/08/23 17:30 10/08/23 17:36 10/08/23 17:45 Temperature Temperature Source Pulse Rate 93 H Pulse Rate [Apical] Pulse Rate from SpO2 Sensor 93 H Pulse Rhythm Respiratory Rate 16 Respiratory Effort / Characteristics Respiratory Depth Respiratory Pattern Blood Pressure 116/89 132/87 Blood Pressure [Left Arm] Blood Pressure Mean 97 102 Blood Pressure Mean [Left Arm] Pulse Oximetry 97 Oxygen Delivery Method Nasal Cannula Oxygen Flow Rate 3 Sepsis Recent Fever Within 48 Hours Sepsis New/Unexplained Change in Mental Status Sepsis Action Taken by Nursing 10/08/23 18:03 10/08/23 18:04 10/08/23 18:18 Temperature Temperature Source Pulse Rate 91 H 90 Pulse Rate [Apical] 90 Pulse Rate from SpO2 Sensor 92 H 90 Pulse Rhythm Respiratory Rate 14 20 14 Respiratory Effort / Characteristics Non-Labored Spontaneous Respiratory Depth Normal Respiratory Pattern Regular Blood Pressure Blood Pressure [Left Arm] Blood Pressure Mean Blood Pressure Mean [Left Arm] Pulse Oximetry 92 91 92 Oxygen Delivery Method Nasal Cannula Oxygen Flow Rate 3 Sepsis Recent Fever Within 48 Hours Sepsis New/Unexplained Change in Mental Status Sepsis Action Taken by Nursing 10/08/23 18:21 10/08/23 18:57 Temperature Temperature Source Pulse Rate 91 H 89 Pulse Rate [Apical] Pulse Rate from SpO2 Sensor 91 H 90 Pulse Rhythm Respiratory Rate 23 21 Respiratory Effort / Characteristics Respiratory Depth Respiratory Pattern Blood Pressure Blood Pressure [Left Arm] Blood Pressure Mean Blood Pressure Mean [Left Arm] Pulse Oximetry 91 91 Oxygen Delivery Method Oxygen Flow Rate Sepsis Recent Fever Within 48 Hours Sepsis New/Unexplained Change in Mental Status Sepsis Action Taken by Nursing Laboratory Data 10/08/23 16:31 10/08/23 17:53 Lab Results 10/08/23 10/08/23 10/08/23 Range/Units 16:31 16:56 17:53 WBC 14.54 H (4.8-10.8) K/ul RBC 5.46 H (4.20-5.40) M/uL Hgb 14.5 (12.0-16.0) g/dl Hct 44.6 (37.0-47.0) % MCV 81.7 (80.0-100.0) fL MCH 26.6 (25.0-34.0) pg MCHC 32.5 (32.0-36.0) g/dL RDW Std Deviation 49.5 H (36.4-46.3) fL RDW Coeff of Malick 17.9 H (11.5-14.5) % Plt Count 355 (130-400) K/uL MPV 9.8 (9.4-12.4) fL Immature Gran % (Auto) 1.1 % Neut % (Auto) 69.6 % Lymph % (Auto) 23.3 % Eagle % (Auto) 4.2 % Eos % (Auto) 1.4 % Baso % (Auto) 0.4 % Neut # (Auto) 10.12 H (1.40-6.50) K/uL Lymph # (Auto) 3.39 (1.20-3.40) K/uL Eagle # (Auto) 0.61 H (0.11-0.59) K/uL Eos # (Auto) 0.20 (0.00-0.50) K/uL Baso # (Auto) 0.06 (0.00-0.20) K/uL Immature Gran # (Auto) 0.16 (0.01-0.20) K/uL PT 10.7 (9.0-12.0) Seconds INR 1.0 (0.9-1.1) APTT 28 (21-31) Seconds PTT Ratio 1.0 VBG pH 7.43 H (7.36-7.41) VBG pCO2 58 H (38-50) mmHg VBG pO2 37 mmHg VBG HCO3 39 mmol/L VBG O2 Saturation 72.6 % VBG Base Excess 11.8 mEq/L Sodium 135 L (136-145) mmol/L Potassium TNP 3.1 L Chloride 92 L (98-107) mmol/L Carbon Dioxide 35 H (21-32) mmol/L Anion Gap 8 (3-11) BUN 29 H (6-23) mg/dl Creatinine 0.80 (0.6-1.2) mg/dl Est Cr Clr Drug Dosing 78.8 ml/min Est GFR ( Amer) 91.6 ml/min Est GFR (Non-Af Amer) 79.0 ml/min BUN/Creatinine Ratio 36.3 H (10-20) Glucose 125 H (70-99(Fasting)) mg/dl Calcium 9.0 (8.6-10.3) mg/dl Total Bilirubin 0.2 (0.2-1.0) mg/dl AST TNP 17 ALT 16 (7-52) U/L Alkaline Phosphatase 100 (34-104) U/L Troponin I High Sens 18.5 H (0-14) pg/ml B-Natriuretic Peptide 66 (0-100) pg/ml Total Protein 7.0 (6.0-8.3) gm/dl Albumin 3.9 (3.4-5.0) gm/dl Globulin 3.1 (2.5-4.0) gm/dl Albumin/Globulin Ratio 1.3 (0.9-2) Adenovirus (PCR) Not Detected (NotDetected) B. pertussis DNA (PCR) Not Detected (NotDetected) B.parapertussis DNA PCR Not Detected (NotDetected) C. pneumoniae DNA (PCR) Not Detected (NotDetected) Coronavirus OC43 (PCR) Not Detected (NotDetected) Coronavirus HKU1 (PCR) Not Detected (NotDetected) Coronavirus 229E (PCR) Not Detected (NotDetected) SARS-CoV-2 (PCR) Not Detected (NotDetected) Coronavirus NL63 (PCR) Not Detected (NotDetected) Human Metapneumovir PCR Not Detected (NotDetected) Influenza Type A (PCR) Not Detected (NotDetected) Influenza Type B (PCR) Not Detected (NotDetected) M. pneumoniae (PCR) Not Detected (NotDetected) Parainfluenza 1 (PCR) Not Detected (NotDetected) Parainfluenza 2 (PCR) Not Detected (NotDetected) Parainfluenza 3 (PCR) Not Detected (NotDetected) Parainfluenza 4 (PCR) Not Detected (NotDetected) RSV (PCR) Not Detected (NotDetected) Entero/Rhino (PCR) Not Detected (NotDetected) Administered Medications Discontinued Medications Bumetanide (Bumetanide 1 Mg Tab) 2 mg PO NOW ONE Stop: 10/08/23 17:18 Last Admin: 10/08/23 17:50 Dose: 2 mg Documented By: [facility] Imaging Data Radiologist's Impression: Chest X-Ray 10/08/23 16:18 XR chest 1V portable HISTORY: 63 years-old Female Dyspnea acute shortness of breath COMPARISON: Chest radiograph and chest CT 09/30/2023 TECHNIQUE: AP view chest FINDINGS: Cardiac silhouette is enlarged. Mild linear bibasilar atelectasis versus scarring. No pneumothorax, pleural effusion or pulmonary edema. Degenerative changes of the shoulders and spine. IMPRESSION: 1. Cardiomegaly without pulmonary edema. 2. Tree-in-bud nodules better seen on the comparison chest CT. 3. Subsegmental bibasilar densities favor atelectasis. ACT 112: Negative or not required by law. The above report was generated using voice recognition software. It may contain grammatical, syntax or spelling errors. Electronically signed by: Avi Leon M.D. 10/08/2023 5:34 PM Discharge Plan Visit Data Chief Complaint: Referred by Doctor Stated Complaint: SOB, FLUID, SWELLING ED Provider: Neelima Miller Discharge Problem: Shortness of breath, Acute hypokalemia, CHF (congestive heart failure) Forms Stand Alone Forms: Incentive Targeting Prescriptions Prescriptions: No Action ondansetron HCl 4 mg Tablet 4 mg PO Q8H PRN (Reason: NAUSEA/VOMITING) quetiapine 200 mg tablet 200 mg PO HS nystatin 100,000 unit/gram Powder 1 applic TOPICAL BID PRN (Reason: UNDER BREASTS NEEDED.) buprenorphine-naloxone 8-2 mg film 1 film sublingual QAM insulin glargine 100 unit/mL (3 mL) insulin pen 60 unit SUBCUT QAM enoxaparin 150 mg/mL syringe 150 mg subcut QAM insulin aspart U-100 [Novolog FlexPen U-100 Insulin] 100 unit/mL (3 mL) insulin pen 10 unit SUBCUT AC Rx Instructions: Plus sliding scale levalbuterol HCl 1.25 mg/3 mL solution for nebulization 1.25 mg INHALATION TID PRN (Reason: Shortness Of Breath Or Wheezing) ipratropium bromide 0.02 % solution 3 ml continuous nebulization QID alprazolam 0.5 mg tablet 0.5 mg PO TID Qty: 14 0RF Rx Instructions: pt requesting to take same time as suboxone albuterol sulfate 90 mcg/actuation HFA aerosol inhaler 2 puff INHALATION UD PRN (Reason: Shortness Of Breath Or Wheezing) montelukast [Singulair] 10 mg tablet 10 mg PO DAILY Qty: 30 0RF citalopram [Celexa] 10 mg tablet 10 mg PO DAILY Qty: 30 0RF bumetanide 2 mg tablet 2 mg PO BID Qty: 60 0RF Rx Instructions: morning and lunch metolazone 5 mg tablet 2.5 mg PO 3XWK Qty: 12 0RF Rx Instructions: 5 mg orally on Mondays, Wednesdays, and Fridays potassium chloride 20 mEq Tablet,Er Particles/Crystals 20 meq PO BID Qty: 120 0RF buprenorphine-naloxone 8-2 mg film 0.5 film sublingual QPM Rx Instructions: Is tapering down guaifenesin [Mucinex] 600 mg tablet extended release 12hr 600 mg PO Q12 PRN (Reason: Congestion) Rx Instructions: OTC fluticasone propionate [Flonase Allergy Relief] 50 mcg/actuation spray,suspension 1 spray intranasal BID Qty: 0 0RF Rx Instructions: administer into each nostril Trelegy Ellipta 200-62.5-25 mcg blister with device 1 ea INHALATION QAM Qty: 60 0RF levalbuterol tartrate 45 mcg/actuation HFA aerosol inhaler 2 puff INHALATION Q4 PRN (Reason: WHEEZE) Qty: 15 0RF Referrals Referrals: Radha Barboza PA-C [Primary Care Provider] -
--- NOTE | 2023-10-08 17:36 | XRay Report ---
XR chest 1V portable HISTORY: 63 years-old Female Dyspnea acute shortness of breath COMPARISON: Chest radiograph and chest CT 09/30/2023 TECHNIQUE: AP view chest FINDINGS: Cardiac silhouette is enlarged. Mild linear bibasilar atelectasis versus scarring. No pneumothorax, p leural effusion or pulmonary edema. Degenerative changes of the shoulders and spine. IMPRESSION: 1. Cardiomegaly without pulmonary edema. 2. Tree-in-bud nodules better seen on the comparison chest CT. 3. Subsegmental bibasilar densities favor atelectasis. ACT 112: Negative or not required by law. The above report was generated using voice recognition software. It may contain grammatical, syntax o r spelling errors. Electronically signed by: Avi Leon M.D. 10/08/2023 5:34 PM
[2023-10-08 17:39] LABS: Adenovirus PCR Not Detected (NotDetected); Bordetella parapertussis PCR Not Detected (NotDetected); Bordetella pertussis PCR Not Detected (NotDetected); Chlamydia pneumoniae PCR Not Detected (NotDetected); Coronavirus 229E PCR Not Detected (NotDetected); Coronavirus CoV-2 (COVID19)PCR Not Detected (NotDetected); Coronavirus HKU1 PCR Not Detected (NotDetected); Coronavirus NL63 PCR Not Detected (NotDetected); Coronavirus OC43PCR Not Detected (NotDetected); Human Metapneumovirus PCR Not Detected (NotDetected); Influenza A PCR Not Detected (NotDetected); Influenza B PCR Not Detected (NotDetected); Mycoplasma pneumoniae PCR Not Detected (NotDetected); Parainfluenza Virus 1 PCR Not Detected (NotDetected); Parainfluenza Virus 2 PCR Not Detected (NotDetected); Parainfluenza Virus 3 PCR Not Detected (NotDetected); Parainfluenza Virus 4 PCR Not Detected (NotDetected); Respiratory Syncytial VirusPCR Not Detected (NotDetected); Rhinovirus/Enterovirus PCR Not Detected (NotDetected)
[2023-10-08] MEDS: BUMETANIDE 1 MG TAB PO ONE (17:50)
[2023-10-08 18:44] LABS: Potassium 3.1 mmol/L (3.5-5.1)
--- NOTE | 2023-10-08 19:22 | History & Physical Report ---
Date of Service October 08, 2023 Assessment & Plan (1) Acute exacerbation of chronic obstructive pulmonary disease: Plan: Admit to [facility] telemetry on pulse oximetry. Currently stable on 3 L nasal cannula in mild respiratory distress but otherwise stable This will be the patient's 10th admission this year for COPD exacerbation, this is being driven by her ongoing tobacco abuse. It appears her anxiety has a significant role in her subjective symptoms as well Will start treatment with the following 60 mg IV Solu-Medrol 3 times daily, every 24 hours azithromycin, scheduled ipratropium and levalbuterol nebulizer treatments, incentive spirometry, flutter therapy, scheduled guaifenesin As needed oxygen to keep SpO2 between 89 to 92% Continue to stress the importance of smoking cessation, reminded her of the FUM device that can be used to assist with her complete cessation Patient declines need for nicotine patches at this time Home Lovenox for DVT prophylaxis Heart healthy/diabetes mellitus type 2 diet with 2 g sodium in 1800 and mL fluid restrictions AM CBC, CMP, mag, PT/INR (2) Shortness of breath: Plan: -See COPD exacerbation (3) Acute hypokalemia: Plan: Potassium of 3.1 today Will obtain mag level Will give 40 mEq p.o. KCl now (4) Diabetes: Plan: Blood sugar ACHS goal is [id number] Continue with 30 units Lantus twice daily Correction factor 50, carb ratio of 15 Adjust regimen as needed (5) Elevated troponin: Plan: High-sensitivity troponin elevated at 18.5 Patient denies chest pain, no acute ST segment or T wave changes on EKG This is actually improved compared to her previous admissions, likely due to demand Continue to monitor on telemetry (6) Tobacco abuse counseling: Plan: Continue stress complete smoking cessation Declines nicotine patch at this time (7) History of pulmonary embolism: Plan: Continue home Lovenox (8) Obesity hypoventilation syndrome: Plan: Will order a chest CPAP/BiPAP will see if patient is able to tolerate it well admitted Plan Patient was discussed with Dr. Aguilar at the time of History of Present Illness Chief Complaint: SOB Primary Care Provider: Radha Jabari Cardoso is a 63-year-old female with a past medical history including severe COPD, chronic hypoxic respiratory failure using 3 LNC at bedtime, chronic ongoing tobacco use, opiate dependence on Suboxone, HFpEF, severe anxiety on chronic xanax, obesity hypoventilation syndrome, DMII, VTE on Lovenox, Multiple myeloma s/p Stem cell tx who presented to the [facility] ED on 10/08/23 with complaints of subjects swelling and increased SOB. This patient is well-known to the hospital medicine service as she has been admitted 9 times since April of this year for COPD exacerbations. Since her last discharge 10/01/2023 she has been filling up with fluid and believes she had gained approximately 6 pounds. She remains stable on her baseline 3 L nasal cannula and was otherwise stable. Labs were significant for a leukocytosis of 14 with neutrophil predominance of 10, VBG pH 7.43, pCO2 58, pO2 37, potassium of 3.1, initial high-sensitivity troponin of 18.5, and negative for respiratory bio fire. Chest x-ray was read as cardiomegaly without pulmonary edema, tree-in-bud nodules better seen on the comparison CT chest, and subsegmental bibasilar densities favoring atelectasis. The patient was given 2 mg Bumex prior to my evaluation. Patient was sitting in bed in no acute he states the time of exam. States that since her last discharge she has had ongoing issues with shortness of breath, wheezing. She states that she was attempting to use her at bedtime trilogy machine but states that she cannot tolerate at home. She understands she needs to quit smoking and is reportedly working on moving back to [place] to remove life stressors that pushed her to continue smoking. States she has had to use her as needed oxygen more frequently. Denies recent fever, chills, chest pain, increased cough, nausea/vomiting, abdominal pain, dysuria, hematuria, melena, lower extremity swelling and recent trauma. She understands she needs to quit smoking as this is what continues to cause her recurrent COPD exacerbations. She is a full code. Please refer to Dr. Aguilar's attestation for any changes to the treatment plan Allergies Allergy/AdvReac Type Severity Reaction Status Date / Time codeine Allergy Severe Anaphylaxis Verified 09/25/23 16:53 Iodinated Contrast Media Allergy Severe Anaphylaxis Verified 09/25/23 16:53 shellfish derived Allergy Severe Anaphylaxis Verified 09/25/23 16:53 tramadol Allergy Intermediate ITCHINESS Verified 09/25/23 16:53 iohexol Allergy Unknown CAN'T Verified 09/25/23 16:53 REMEMBER diphenhydramine AdvReac Severe Anxiety Verified 09/25/23 16:53 [From Benadryl] montelukast [From Singulair] AdvReac Intermediate Anxiety Verified 09/25/23 16:53 promethazine AdvReac Intermediate Anxiety Verified 09/25/23 16:53 Home Medications Medication Instructions Recorded Confirmed Type buprenorphine 8 mg-naloxone 2 mg 1 film sublingual QAM 05/14/22 10/08/23 History sublingual film nystatin 100,000 unit/gram topical 1 applic topical BID PRN UNDER 05/14/22 10/08/23 History powder BREASTS NEEDED. ondansetron HCl 4 mg tablet 4 mg PO Q8H PRN NAUSEA/VOMITING 05/14/22 10/08/23 History quetiapine 200 mg tablet 200 mg PO HS 05/14/22 10/08/23 History insulin glargine 100 unit/mL (3 60 unit subcut QAM 06/21/22 10/08/23 History mL) subcutaneous pen ipratropium bromide 0.02 % 3 ml continuous nebulization QID 01/16/23 10/08/23 History solution for inhalation levalbuterol HCl 1.25 mg/3 mL 1.25 mg inhalation TID PRN 01/16/23 10/08/23 History solution for nebulization Shortness Of Breath Or Wheezing enoxaparin 150 mg/mL subcutaneous 150 mg subcut QAM 05/07/23 10/08/23 History syringe insulin aspart U-100 100 unit/mL 10 unit subcut AC 05/07/23 10/08/23 History (3 mL) subcutaneous pen (Novolog FlexPen U-100 Insulin aspart) alprazolam 0.5 mg tablet 0.5 mg PO TID #14 tabs 08/02/23 10/08/23 Rx albuterol sulfate 90 mcg/actuation 2 puff inhalation UD PRN Shortness 08/30/23 10/08/23 History aerosol inhaler Of Breath Or Wheezing buprenorphine 8 mg-naloxone 2 mg 0.5 film sublingual QPM 09/11/23 10/08/23 History sublingual film guaifenesin 600 mg tablet, 600 mg PO Q12 PRN Congestion 09/11/23 10/08/23 History extended release 12 hr (Mucinex) fluticasone propionate 50 1 spray intranasal BID nasal 09/15/23 10/08/23 Rx mcg/actuation nasal congestion #0 mL spray,suspension (Flonase Allergy Relief) fluticasone fur. 200 mcg-umeclid 1 ea inhalation QAM #60 ea 09/16/23 10/08/23 Rx 62.5 mcg-vilant 25 mcg inhalat.powder (Trelegy Ellipta) levalbuterol tartrate 45 2 puff inhalation Q4 PRN WHEEZE 09/16/23 10/08/23 Rx mcg/actuation aerosol inhaler #15 grams bumetanide 2 mg tablet 2 mg PO BID #60 tabs 09/29/23 10/08/23 Rx citalopram 10 mg tablet (Celexa) 10 mg PO DAILY #30 tabs 09/29/23 10/08/23 Rx metolazone 5 mg tablet 2.5 mg (1/2 x 5 mg) PO 3XWK #12 09/29/23 10/08/23 Rx tabs montelukast 10 mg tablet 10 mg PO DAILY #30 tabs 09/29/23 10/08/23 Rx (Singulair) potassium chloride 20 mEq 20 meq PO BID #120 tabs 09/29/23 10/08/23 Rx tablet,extended release(part/cryst) Past Med/Surg History Problem List (Updated 10/09/23 @ 13:11 by Maurilio Herndon MD) Chronic hypoxic respiratory failure CHF (congestive heart failure) (Acute) Acute hypokalemia (Acute) Shortness of breath (Acute) Multiple myeloma Last chemotherapy 2016 Follows with medical oncology in [facility] Diabetes Hypokalemia Heart failure with preserved ejection fraction COPD (chronic obstructive pulmonary disease) (Acute) Shortness of breath (Acute) Generalized anxiety disorder Chronic respiratory failure with hypoxia and hypercapnia Tobacco abuse counseling Chronic hypercapnic respiratory failure Moderate persistent asthma Constipation History of pulmonary embolism Obesity hypoventilation syndrome Chronic anticoagulation Acute bronchitis Pulmonary vascular congestion Acute on chronic respiratory failure with hypoxia (Acute) Right knee pain Nasal fracture Rib fractures (Acute) COPD (chronic obstructive pulmonary disease) (Acute) Medical History Acute exacerbation of chronic obstructive pulmonary disease Heart failure with preserved ejection fraction Hypokalemia Tobacco abuse Opiate dependence Dyspnea Diabetes Multiple myeloma Last chemotherapy 2016 Follows with medical oncology in [facility] Acute heart failure with preserved ejection fraction (HFpEF) Asthma Surgical History No pertinent past surgical history Family History (Updated 09/30/23 @ 19:11 by Petra Chan MD) Sister Asthma Social History Smoking Status: Current every day smoker Tobacco Type: Cigarettes Cigarettes Per Day: 1 cigarette per day; Second Hand Exposure: No; Do You Dip or Chew Tobacco: No; Hx Alcohol Use: No Hx Substance Use: No Preferred Language: Latvian Communication Ability: Effective Executive Recruiter Required: No Beliefs That Will Affect Care: None Current Living Situation: Family Current Living Situation Comment: lives with sister temporarily Feels Safe at Home: Yes Safety Concerns: Feels Safe At This Time Assistive Devices: BiPap and Oxygen - at Night Physical Exam Physical Exam: Physical Exam: General: In no acute distress, stated age, chronically ill appearing but non- toxic HEENT: Normocephalic, atraumatic, no scleral icterus, pupils around round, symmetrical, and reactive to light, dry mucus membranes, no JVD, trachea midline, no thyromegaly Chest/Pulm: No respiratory distress, symmetrical chest expansion, scattered expiratory wheezing throughout Cardiac: RRR, no murmurs noted Abdomen: Negative for ascites and bruising, normoactive bowel sounds, soft, non-tender to palpation throughout Musculoskeletal: Symmetrical and without signs of acute trauma, upper and lower extremities with full ROM, no atrophy, spasticity, or flaccidity Extremities: Radial, dorsalis pedis, and posterior tibial pulses are intact and symmetrical, no edema noted in the BL LE's Skin: Warm, dry, no rashes , lesions, or scars noted Neuro: Alert and oriented to person, place, month, year, and president, no focal defects, no tremors noted Psych: Anxious but polite and cooperative during the exam Results & Data Results & Data Vital Signs (Past 12 Hours) Vital Signs Temp Pulse Pulse Resp BP BP Pulse Ox 10/08/23 18:57 89 21 91 10/08/23 18:21 91 H 23 91 10/08/23 18:18 90 14 92 10/08/23 18:04 90 20 91 10/08/23 18:03 91 H 14 92 10/08/23 17:45 132/87 97 10/08/23 17:36 93 H 16 10/08/23 17:30 116/89 10/08/23 17:15 125/90 10/08/23 17:15 95 H 17 97 10/08/23 17:12 98 H 21 95 10/08/23 17:03 101 H 18 97 10/08/23 17:00 131/94 10/08/23 16:57 96 H 16 95 10/08/23 16:51 100 H 15 96 10/08/23 16:42 92 H 14 93 10/08/23 16:30 97 H 11 L 88 L 10/08/23 16:30 97 H 23 89 L 10/08/23 16:23 90 24 124/79 90 10/08/23 16:13 36.2 C L 106 H 26 H 93/64 L 95 O2 Del Method O2 Flow Rate 10/08/23 18:57 10/08/23 18:21 10/08/23 18:18 10/08/23 18:04 Nasal Cannula 3 10/08/23 18:03 10/08/23 17:45 Nasal Cannula 3 10/08/23 17:36 10/08/23 17:30 10/08/23 17:15 10/08/23 17:15 10/08/23 17:12 10/08/23 17:03 10/08/23 17:00 10/08/23 16:57 10/08/23 16:51 10/08/23 16:42 10/08/23 16:30 Nasal Cannula 3 10/08/23 16:30 Room Air 10/08/23 16:23 Room Air 10/08/23 16:13 Room Air Laboratory Results Abnormal lab results 10/08/23 10/08/23 10/08/23 Range/Units 16:31 16:56 17:53 WBC 14.54 H (4.8-10.8) K/ul RBC 5.46 H (4.20-5.40) M/uL RDW Std Deviation 49.5 H (36.4-46.3) fL RDW Coeff of Malick 17.9 H (11.5-14.5) % Neut # (Auto) 10.12 H (1.40-6.50) K/uL Bradley # (Auto) 0.61 H (0.11-0.59) K/uL VBG pH 7.43 H (7.36-7.41) VBG pCO2 58 H (38-50) mmHg Sodium 135 L (136-145) mmol/L Potassium 3.1 L (3.5-5.1) mmol/L Chloride 92 L (98-107) mmol/L Carbon Dioxide 35 H (21-32) mmol/L BUN 29 H (6-23) mg/dl BUN/Creatinine Ratio 36.3 H (10-20) Glucose 125 H (70-99(Fasting)) mg/dl Troponin I High Sens 18.5 H (0-14) pg/ml Diagnostic Findings Chest X-Ray 10/08/23 16:18 XR chest 1V portable HISTORY: 63 years-old Female Dyspnea acute shortness of breath COMPARISON: Chest radiograph and chest CT 09/30/2023 TECHNIQUE: AP view chest FINDINGS: Cardiac silhouette is enlarged. Mild linear bibasilar atelectasis versus scarring. No pneumothorax, pleural effusion or pulmonary edema. Degenerative changes of the shoulders and spine. IMPRESSION: 1. Cardiomegaly without pulmonary edema. 2. Tree-in-bud nodules better seen on the comparison chest CT. 3. Subsegmental bibasilar densities favor atelectasis. ACT 112: Negative or not required by law. The above report was generated using voice recognition software. It may contain grammatical, syntax or spelling errors. Electronically signed by: Avi Leon M.D. 10/08/2023 5:34 PM ECG Additional Comments: Normal sinus rhythm Inferior infarct (cited on or before 16-AUG-2023) Cannot rule out Anterior infarct (cited on or before 28-JUL-2023) Abnormal ECG When compared with ECG of 30-SEP-2023 05:46, Questionable change in initial forces of Anteroseptal leads Code Status & VTE Plan Code Status Full code VTE Prophylaxis Plan VTE Prophylaxis will be ordered: Yes Supervising Physician Co-Signing Physician Notes Attending addendum: I have physically seen this patient, have supervised the ZACHARIAH's activities, and agree with the H&P unless as otherwise noted. Assessment and Plan: COPD exacerbation- Admit to medical telemetry Continue nasal cannula oxygen, presently 3 L, titrate to keep pulse ox around 90% Solu-Medrol 60 mg IV every 8 hours Azithromycin 500 mg IV daily Duonebs every 4 hours while awake and every 2 hours when necessary. Guaifenesin extended release 1200 mg p.o. twice daily Patient reports having a new inhaler device at home, that she is not sure is working correctly, ask pulmonology to see Hypokalemia- Potassium 3.1 Check a mag level, and replete to 2.0 with low Give Klor-Con 40 mEq p.o., and recheck laboratories in a.m. Diabetes mellitus- Glargine 30 units twice daily as noted Expect and increase in sugars with the use of Solu-Medrol Tobacco abuse Cessation counseling Remaining orders and notations as noted PG Care Time/CCT Total # of Minutes Spent Total Time Spent with Patient: Total time spent is greater than 50% in coordination of care (as documented) at patient's floor/unit and/or counseling patient: C[place] [address] INT INP/OBS CARE 2/55MIN Patient Type Established Medical Decision Making Moderate Complexity Diagnoses Acute exacerbation of chronic obstructive pulmonary disease J44.1 Shortness of breath R06.02 Acute hypokalemia E87.6 Type 2 diabetes mellitus without complication, with long-term current use of insulin E11.9; Z79.4 Diabetes mellitus complication status: without complication 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
[2023-10-08] MEDS ORDERED: DEXTROSE 50% 50 ML SYRINGE IV PRN (19:32)
[2023-10-08] MEDS ORDERED: GLUCOSE 10 TAB/TUBE PO PRN (19:32)
[2023-10-08] MEDS ORDERED: GLUCOSE 40% GEL 15 GM TUBE PO PRN (19:32)
[2023-10-08] MEDS ORDERED: GLUCAGON FOR INJ 1 MG VIAL SQ PRN (19:32)
[2023-10-08] MEDS: ALPRAZolam 0.5 MG TABLET PO STA (19:57)
[2023-10-08] MEDS: methylPREDNISolone 125 MG/2 ML VIAL IV STA (19:58)
[2023-10-08 20:16] LABS: Magnesium 2.1 mg/dl (1.7-2.4)
[2023-10-08] MEDS: POTASSIUM CHLORIDE CRTAB 20 MEQ TABCR PO STA ×2 (20:23→23:21)
[2023-10-08] MEDS: AZITHROMYCIN 500 MG in DEXTROSE 5% 250 ML IV STA (20:23)
[2023-10-08] MEDS: INSULIN ASPART PER UNIT CHARGE SC SCH (20:41)
[2023-10-08] MEDS: LANTUS PER UNIT CHARGE SQ SCH (20:42)
[2023-10-08] MEDS: LEVALBUTEROL 1.25 MG/3 ML NEB NEB SCH (23:09)
[2023-10-08] MEDS: BUPRENORPHINE/NALOXONE 2/0.5MG TAB SL SCH (23:21)
[2023-10-08] MEDS: QUEtiapine FUMARATE 200 MG TAB PO SCH (23:21)
[2023-10-09 07:05] LABS: Basophils # (auto) 0.05 K/uL (0.00-0.20); Basophils % (auto) 0.3 %; Hematocrit (blood only) 45.1 % (37.0-47.0); Hemoglobin 14.4 g/dl (12.0-16.0); Immature Granulocytes # (auto) 0.17 K/uL (0.01-0.20); Lymphocytes # (auto) 1.63 K/uL (1.20-3.40); Mean Corpuscular Hemoglobin 26.5 pg (25.0-34.0); Mean Corpuscular Hgb Conc 31.9 g/dL (32.0-36.0); Mean Corpuscular Volume 82.9 fL (80.0-100.0); Mean Platelet Volume 9.8 fL (9.4-12.4); Monocytes # (auto) 0.13 K/uL (0.11-0.59); Monocytes % (auto) 0.8 %; Neutrophils # (auto) 14.25 K/uL (1.40-6.50); Neutrophils % (auto) 87.9 %; Platelet Count 352 K/uL (130-400); RDW Coefficient of Variation 18.1 % (11.5-14.5); RDW Standard Deviation 51.4 fL (36.4-46.3); Red Blood Count 5.44 M/uL (4.20-5.40); White Blood Count 16.23 K/ul (4.8-10.8)
[2023-10-09] MEDS: IPRATROPIUM BROMIDE NEB SOLN 0.02% 0.5MG/2.5ML VIAL NEB SCH (07:10)
[2023-10-09 07:27] LABS: Albumin Globulin Ratio 1.3 (0.9-2); Albumin Level 3.9 gm/dl (3.4-5.0); BUN Creatinine Ratio 30.5 (10-20); Bilirubin,Total 0.3 mg/dl (0.2-1.0); Calcium 9.4 mg/dl (8.6-10.3); Est GFR (African American) 65.9 ml/min; Est GFR (Non-African American) 56.9 ml/min; Magnesium 2.1 mg/dl (1.7-2.4); Potassium 4.4 mmol/L (3.5-5.1); Total Protein 6.9 gm/dl (6.0-8.3)
[2023-10-09] MEDS: CITALOPRAM 20 MG TAB PO SCH (08:32)
[2023-10-09] MEDS: FLUTICASONE FUROATE 200MCG 14 PUFFS/INHALER INH SCH (08:32)
[2023-10-09] MEDS: ENOXAPARIN 150 MG/ML SYR SQ SCH (08:33)
[2023-10-09] MEDS: UMECLIDINIUM/VILANTEROL 62.5/25MCG 7 PUFFS/INHALER INH SCH (08:33)
[2023-10-09] MEDS: BUPRENORPHINE/NALOXONE 8/2 MG TAB SL SCH (08:43)
[2023-10-09] MEDS: ALPRAZolam 0.5 MG TABLET PO SCH (08:43)
[2023-10-09] MEDS: POTASSIUM CHLORIDE CRTAB 20 MEQ TABCR PO SCH (08:43)
[2023-10-09] MEDS: LANTUS PER UNIT CHARGE SQ SCH (08:48)
[2023-10-09] MEDS ORDERED: methylPREDNISolone 125 MG/2 ML VIAL IV SCH (09:00)
[2023-10-09] MEDS ORDERED: NON-FORMULARY MEDICATION (Fluticasone-Umeclidin-Vilanter [Trelegy Ellipta] 200-62.5-25 mcg INH SCH (09:00)
[2023-10-09] MEDS ORDERED: methylPREDNISolone 60 MG in SYRINGE 0 ML IV SCH (09:00)
[2023-10-09 09:27] LABS: Appearance Urine Clear (Clear); Bilirubin Urine Negative (Negative); Blood Urine Negative (Negative); Color Urine Yellow; Glucose Urine UA Trace (Negative); Ketones Urine Negative (Negative); Leukocyte Esterase Urine Negative (Negative); Nitrite Urine Negative (Negative); Protein Urine Negative (Negative); Specific Gravity Urine 1.012 (1.000-1.030); Urobilinogen Urine Negative (Negative)
[2023-10-09] MEDS: metOLazone 2.5 MG TABLET PO SCH (09:40)
[2023-10-09] MEDS: BUMETANIDE 1 MG TAB PO SCH (09:41)
--- NOTE | 2023-10-09 13:08 | Electrocardiogram Report ---
Test Reason : Blood Pressure : / mmHG Vent. Rate : 095 BPM Atrial Rate : 095 BPM P-R Int : 152 ms QRS Dur : 080 ms QT Int : 370 ms P-R-T Axes : 042 010 055 degrees QTc Int : 464 ms Normal sinus rhythm possible Inferior infarct (cited on or before 16-AUG-2023) Abnormal ECG Confirmed by Nelson Kenny ([id number]) on 10/09/2023 1:08:20 PM Referred By: Radha Barboza Confirmed By:bP Kenny
--- NOTE | 2023-10-09 13:12 | Hospitalist Progress Note ---
Date of Service October 09, 2023 Assessment & Plan (1) Acute exacerbation of chronic obstructive pulmonary disease: Plan: Parenteral steroid therapy and scheduled nebulizers. Treat underlying bronchitis. (2) Acute hypokalemia: Plan: Potassium 3.1 on admission. Corrected now to 4.4. Serial labs. (3) Diabetes: Plan: Hyperglycemic due to parenteral steroid therapy. Insulin has been uptitrated. Sliding scale coverage. ADA diet (4) Elevated troponin: Plan: Mild. No acute EKG changes. No evidence of acute coronary syndrome (5) Tobacco abuse counseling: Plan: stressed smoking cessation (6) History of pulmonary embolism: Plan: Continue Lovenox (7) Chronic hypoxic respiratory failure: Plan: She typically uses 3 L of oxygen per minute per nasal cannula at bedtime Plan Hopeful discharge to home within the next 48 to 72 hours Admission and Anticipated Discharge Date Admission Date: October 08, 2023 Subjective Alert and oriented. She appears to have another exacerbation of her COPD probably from recurrent bronchitis. She was also hypokalemic on admission but this was corrected. She is hyperglycemic due to steroid therapy. Azithromycin has been switched to Levaquin and insulin dosage has been uptitrated. Will obtain sputum culture if sputum is produced. Chest x-ray and chest CT scan reports noted. She is on her usual 3 L of oxygen per nasal cannula. Review of Systems 2 Review of Systems: Constitutional-no fever or chills ENT-no blurred vision, no double vision, no epistaxis, no sore throat Respiratory-nonproductive cough. Wheezing. Shortness of breath. No hemoptysis Cardiac-no palpitations, no chest pain, no syncope GI-no nausea, vomiting, diarrhea, melena, hematochezia -no urinary retention, no urinary incontinence, no dysuria, no hematuria Musculoskeletal-no joint pain, no muscle tenderness Skin-no bruising, no rashes, no pruritus Neuro-no isolated weakness, no paresthesia, no weakness Psych-no depression. Chronic anxiety Physical Exam 2 Physical Exam: General-alert and oriented x3, no fever, no chills HEENT-head atraumatic and normocephalic, pupils equal and reactive to light, extraocular muscles intact Neck-no lymphadenopathy or thyromegaly, trachea midline Chest-diminished breath sounds bilaterally. Midline rhonchi with forced cough. Bilateral end expiratory wheezes. No expiratory rales. No dullness to percussion Cardiac-regular rate and rhythm, normal S1 and S2 Abdomen-normal bowel sounds, no hepatosplenomegaly Extremities-no cyanosis, clubbing, or edema Neuro-cranial nerves II through XII intact, motor and sensory function within normal limits, strength symmetrical, no focal deficits Psych-anxious affect, normal mood Results & Data Results & Data Vital Signs (Past 12 Hours) Vital Signs Temp Pulse Pulse Pulse Resp BP BP 10/09/23 11:26 36.5 C 90 18 126/85 10/09/23 10:46 88 20 10/09/23 08:30 10/09/23 07:43 36.3 C L 96 H 18 107/60 10/09/23 07:31 89 10/09/23 07:13 90 18 10/09/23 04:16 36.7 C 88 20 108/71 10/09/23 03:40 89 Pulse Ox O2 Del Method O2 Flow Rate 10/09/23 11:26 98 Room Air 10/09/23 10:46 91 Room Air 10/09/23 08:30 Nasal Cannula 2 10/09/23 07:43 93 Nasal Cannula 3 10/09/23 07:31 10/09/23 07:13 91 Room Air 10/09/23 04:16 95 Nasal Cannula 2 10/09/23 03:40 Nasal Cannula 3 Laboratory Results 10/09/23 06:12 10/09/23 06:12 PG Care Time/CCT Total # of Minutes Spent Total Time Spent with Patient: Total time spent is greater than 50% in coordination of care (as documented) at patient's floor/unit and/or counseling patient: Coding Level of Care Code 94718 SUB INP/OBS CARE 3/50MIN Diagnoses Acute exacerbation of chronic obstructive pulmonary disease J44.1 Acute hypokalemia E87.6 Type 2 diabetes mellitus without complication, with long-term current use of insulin E11.9; Z79.4 Diabetes mellitus type: type 2 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
[2023-10-09] MEDS: methylPREDNISolone 40 MG in SYRINGE 0 ML IV SCH (13:17)
[2023-10-09] MEDS: levoFLOXacin/D5W 750 MG/150 ML BAG IV SCH (13:22)
[2023-10-09] MEDS: SOD PHOSPHATE/SOD BIPHOSPHATE ENEMA 132 ML BTL PR STA (14:40)
[2023-10-09] MEDS ORDERED: AZITHROMYCIN 500 MG in DEXTROSE 5% 250 ML IV SCH (20:00)
[2023-10-10 06:44] LABS: Basophils # (auto) 0.04 K/uL (0.00-0.20); Basophils % (auto) 0.2 %; Hematocrit (blood only) 45.3 % (37.0-47.0); Hemoglobin 14.3 g/dl (12.0-16.0); Immature Granulocytes # (auto) 0.24 K/uL (0.01-0.20); Immature Granulocytes % (auto) 1.4 %; Lymphocytes # (auto) 1.97 K/uL (1.20-3.40); Lymphocytes % (auto) 11.5 %; Mean Corpuscular Hemoglobin 26.1 pg (25.0-34.0); Mean Corpuscular Hgb Conc 31.6 g/dL (32.0-36.0); Mean Corpuscular Volume 82.7 fL (80.0-100.0); Mean Platelet Volume 9.9 fL (9.4-12.4); Monocytes # (auto) 0.41 K/uL (0.11-0.59); Monocytes % (auto) 2.4 %; Neutrophils # (auto) 14.41 K/uL (1.40-6.50); Neutrophils % (auto) 84.5 %; Platelet Count 347 K/uL (130-400); RDW Coefficient of Variation 17.9 % (11.5-14.5); RDW Standard Deviation 50.7 fL (36.4-46.3); Red Blood Count 5.48 M/uL (4.20-5.40); White Blood Count 17.07 K/ul (4.8-10.8)
[2023-10-10 07:07] LABS: BUN Creatinine Ratio 36.2 (10-20); Calcium 9.8 mg/dl (8.6-10.3); Est GFR (African American) 65.9 ml/min; Est GFR (Non-African American) 56.9 ml/min; Potassium 3.5 mmol/L (3.5-5.1)
[2023-10-10] MEDS: guaiFENesin 600 MG TABCR PO PRN (08:39)
[2023-10-10] MEDS: INSULIN HUMAN NPH SC SCH (08:39)
--- NOTE | 2023-10-10 14:08 | Hospitalist Progress Note ---
Date of Service October 10, 2023 Assessment & Plan (1) Acute exacerbation of chronic obstructive pulmonary disease: Plan: Parenteral steroid therapy switched to oral prednisone due to hyperglycemia. Nebulizer switched to Pulmicort. Treat underlying bronchitis. (2) Acute hypokalemia: Plan: Potassium 3.1 on admission. Corrected to 4.4 and then down to 3.5 today, October 09. Will follow. Continue oral replacement. (3) Diabetes: Plan: Hyperglycemic due to parenteral steroid therapy. She has been switched to oral prednisone. Lantus switched to NPH insulin. Sliding scale coverage. ADA diet (4) Elevated troponin: Plan: Mild. No acute EKG changes. No evidence of acute coronary syndrome (5) Tobacco abuse counseling: Plan: stressed smoking cessation (6) History of pulmonary embolism: Plan: Continue Lovenox (7) Chronic hypoxic respiratory failure: Plan: She typically uses 3 L of oxygen per minute per nasal cannula at bedtime Plan Hopeful discharge to home within the next 24 to 48 hours Admission and Anticipated Discharge Date Admission Date: October 08, 2023 Subjective Significant hyperglycemia from parenteral steroids. This has been switched to oral prednisone. Lantus has been switched to NPH insulin. She uses Pulmicort at home and has requested nebulizers twice daily. Sputum is nondiagnostic. Review of Systems 2 Review of Systems: Constitutional-no fever or chills ENT-no blurred vision, no double vision, no epistaxis, no sore throat Respiratory-nonproductive cough. Wheezing. Shortness of breath. No hemoptysis Cardiac-no palpitations, no chest pain, no syncope GI-no nausea, vomiting, diarrhea, melena, hematochezia -no urinary retention, no urinary incontinence, no dysuria, no hematuria Musculoskeletal-no joint pain, no muscle tenderness Skin-no bruising, no rashes, no pruritus Neuro-no isolated weakness, no paresthesia, no weakness Psych-no depression. Chronic anxiety Physical Exam 2 Physical Exam: General-alert and oriented x3, no fever, no chills HEENT-head atraumatic and normocephalic, pupils equal and reactive to light, extraocular muscles intact Neck-no lymphadenopathy or thyromegaly, trachea midline Chest-diminished breath sounds bilaterally. Midline rhonchi with forced cough. Bilateral end expiratory wheezes. No expiratory rales. No dullness to percussion Cardiac-regular rate and rhythm, normal S1 and S2 Abdomen-normal bowel sounds, no hepatosplenomegaly Extremities-no cyanosis, clubbing, or edema Neuro-cranial nerves II through XII intact, motor and sensory function within normal limits, strength symmetrical, no focal deficits Psych-anxious affect, normal mood Results & Data Results & Data Vital Signs (Past 12 Hours) Vital Signs Temp Pulse Pulse Resp BP BP Pulse Ox 10/10/23 11:24 113 H 18 91 10/10/23 07:55 10/10/23 07:29 103 H 18 93 10/10/23 07:23 36.4 C L 93 H 18 120/78 90 10/10/23 07:06 94 H 10/10/23 03:48 36.3 C L 92 H 16 103/68 90 O2 Del Method 10/10/23 11:24 Room Air 10/10/23 07:55 Room Air 10/10/23 07:29 Room Air 10/10/23 07:23 Room Air 10/10/23 07:06 10/10/23 03:48 Room Air Laboratory Results 10/10/23 05:37 10/10/23 12:24 PG Care Time/CCT Total # of Minutes Spent Total Time Spent with Patient: Total time spent is greater than 50% in coordination of care (as documented) at patient's floor/unit and/or counseling patient: Coding Level of Care Code 79031 SUB INP/OBS CARE 3/50MIN Diagnoses Acute exacerbation of chronic obstructive pulmonary disease J44.1 Acute hypokalemia E87.6 Type 2 diabetes mellitus without complication, with long-term current use of insulin E11.9; Z79.4 Diabetes mellitus type: type 2 Diabetes mellitus termite exterminator helper insulin use: with shelter use Diabetes mellitus complication status: without complication Elevated troponin R79.89 Tobacco abuse counseling Z71.6 History of pulmonary embolism Z86.711 Chronic hypoxic respiratory failure J96.11 (3) Diabetes Diabetes mellitus type: type 2 Diabetes mellitus termite exterminator helper insulin use: with shelter use Diabetes mellitus complication status: without complication Qualified Code(s): E11.9 - Type 2 diabetes mellitus without complications; Z79.4 - [facility] (current) use of insulin
[2023-10-10] MEDS: predniSONE 10 MG TABLET PO SCH (14:17)
[2023-10-10] MEDS: BUDESONIDE 0.5 MG/2 ML VIAL (PULMICORT) NEB SCH (19:47)
[2023-10-11] MEDS: ALBUT/IPRATROP 3MG/0.5MG NEB 3 ML VIAL NEB PRN (05:52)
[2023-10-11 07:33] LABS: Basophils # (auto) 0.05 K/uL (0.00-0.20); Basophils % (auto) 0.3 %; Eosinophils # (auto) 0.01 K/uL (0.00-0.50); Eosinophils % (auto) 0.1 %; Hematocrit (blood only) 47.6 % (37.0-47.0); Hemoglobin 15.5 g/dl (12.0-16.0); Immature Granulocytes # (auto) 0.22 K/uL (0.01-0.20); Immature Granulocytes % (auto) 1.2 %; Lymphocytes # (auto) 3.61 K/uL (1.20-3.40); Lymphocytes % (auto) 19.5 %; Mean Corpuscular Hemoglobin 26.6 pg (25.0-34.0); Mean Corpuscular Hgb Conc 32.6 g/dL (32.0-36.0); Mean Corpuscular Volume 81.8 fL (80.0-100.0); Mean Platelet Volume 9.5 fL (9.4-12.4); Monocytes # (auto) 0.92 K/uL (0.11-0.59); Neutrophils # (auto) 13.74 K/uL (1.40-6.50); Neutrophils % (auto) 73.9 %; Platelet Count 363 K/uL (130-400); RDW Coefficient of Variation 18.1 % (11.5-14.5); Red Blood Count 5.82 M/uL (4.20-5.40); White Blood Count 18.55 K/ul (4.8-10.8)
[2023-10-11 08:13] LABS: Calcium 10.5 mg/dl (8.6-10.3); Potassium 3.5 mmol/L (3.5-5.1)
[2023-10-11 08:18] LABS: BUN Creatinine Ratio 40.7 (10-20); Creatinine Clr Calc Pharmacy 52.9 ml/min; Est GFR (African American) 57.2 ml/min; Est GFR (Non-African American) 49.4 ml/min
[2023-10-11] MEDS: SOD PHOSPHATE/SOD BIPHOSPHATE ENEMA 132 ML BTL PR PRN (08:41)
[2023-10-11] MEDS: predniSONE 20 MG TAB PO SCH (14:13)
--- NOTE | 2023-10-11 14:40 | Hospitalist Progress Note ---
Date of Service October 11, 2023 Assessment & Plan (1) Acute exacerbation of chronic obstructive pulmonary disease: Plan: Parenteral steroid therapy switched to oral prednisone due to hyperglycemia. Prednisone dosage uptitrated today, October 10. Nebulizer has been switched to Pulmicort. Treat underlying bronchitis. (2) Acute hypokalemia: Plan: Potassium now appears stable at 3.5. Continue oral replacement. Serial labs (3) Diabetes: Plan: Much improved now. She was hyperglycemic due to parenteral steroid therapy. She has been switched to oral prednisone. Lantus switched to NPH insulin. Sliding scale coverage. ADA diet (4) Elevated troponin: Plan: Mild. No acute EKG changes. No evidence of acute coronary syndrome (5) Tobacco abuse counseling: Plan: stressed smoking cessation (6) History of pulmonary embolism: Plan: Continue Lovenox (7) Chronic hypoxic respiratory failure: Plan: She typically uses 3 L of oxygen per minute per nasal cannula at bedtime Plan Hopeful discharge to home within the next 24 to 48 hours Admission and Anticipated Discharge Date Admission Date: October 08, 2023 Subjective Alert and oriented. Still wheezing. Glucose is much better off parenteral steroids. Prednisone uptitrated today, October 10. Potassium stable at 3.5. She remains on Levaquin. Review of Systems 2 Review of Systems: Constitutional-no fever or chills ENT-no blurred vision, no double vision, no epistaxis, no sore throat Respiratory-nonproductive cough. Wheezing. Shortness of breath with exertion no hemoptysis Cardiac-no palpitations, no chest pain, no syncope GI-no nausea, vomiting, diarrhea, melena, hematochezia -no urinary retention, no urinary incontinence, no dysuria, no hematuria Musculoskeletal-no joint pain, no muscle tenderness Skin-no bruising, no rashes, no pruritus Neuro-no isolated weakness, no paresthesia, no weakness Psych-no depression. Chronic anxiety Physical Exam 2 Physical Exam: General-alert and oriented x3, no fever, no chills HEENT-head atraumatic and normocephalic, pupils equal and reactive to light, extraocular muscles intact Neck-no lymphadenopathy or thyromegaly, trachea midline Chest-diminished breath sounds bilaterally. Midline rhonchi with forced cough. Bilateral end expiratory wheezes. No expiratory rales. No dullness to percussion Cardiac-regular rate and rhythm, normal S1 and S2 Abdomen-normal bowel sounds, no hepatosplenomegaly Extremities-no cyanosis, clubbing, or edema Neuro-cranial nerves II through XII intact, motor and sensory function within normal limits, strength symmetrical, no focal deficits Psych-anxious affect, normal mood Results & Data Results & Data Vital Signs (Past 12 Hours) Vital Signs Temp Pulse Pulse Pulse Resp BP Pulse Ox 10/11/23 11:30 37 C 99 H 20 142/93 H 95 10/11/23 08:00 10/11/23 07:41 95 H 18 96 10/11/23 07:30 36.6 C 91 H 18 133/91 94 10/11/23 07:06 90 10/11/23 05:52 103 H 18 95 10/11/23 02:56 36.6 C 92 H 16 108/65 93 O2 Del Method 10/11/23 11:30 Room Air 10/11/23 08:00 Room Air 10/11/23 07:41 Room Air 10/11/23 07:30 Room Air 10/11/23 07:06 10/11/23 05:52 Room Air 10/11/23 02:56 Room Air Laboratory Results 10/11/23 06:27 10/11/23 06:27 PG Care Time/CCT Total # of Minutes Spent Total Time Spent with Patient: Total time spent is greater than 50% in coordination of care (as documented) at patient's floor/unit and/or counseling patient: Coding Level of Care Code 76154 SUB INP/OBS CARE 3/50MIN Diagnoses Acute exacerbation of chronic obstructive pulmonary disease J44.1 Acute hypokalemia E87.6 Type 2 diabetes mellitus without complication, with long-term current use of insulin E11.9; Z79.4 Diabetes mellitus type: type 2 Diabetes mellitus termite exterminator helper insulin use: with termite exterminator helper use Diabetes mellitus complication status: without complication Elevated troponin R79.89 Tobacco abuse counseling Z71.6 History of pulmonary embolism Z86.711 Chronic hypoxic respiratory failure J96.11 (3) Diabetes Diabetes mellitus type: type 2 Diabetes mellitus termite exterminator helper insulin use: with retirement use Diabetes mellitus complication status: without complication Qualified Code(s): E11.9 - Type 2 diabetes mellitus without complications; Z79.4 - termite exterminator helper (current) use of insulin
[2023-10-12 09:16] LABS: BUN Creatinine Ratio 39.3 (10-20); Calcium 9.8 mg/dl (8.6-10.3); Creatinine Clr Calc Pharmacy 58.6 ml/min; Est GFR (African American) 64.4 ml/min; Est GFR (Non-African American) 55.6 ml/min; Potassium 3.3 mmol/L (3.5-5.1)
[2023-10-12] MEDS ORDERED: COUGH DROP (SUGAR FREE) LOZ 24 LOZ/1 BOX BUCCAL PRN (11:32)
[2023-10-12] MEDS: levoFLOXacin 750 MG TAB PO SCH (13:51)
--- NOTE | 2023-10-12 17:36 | Hospitalist Progress Note ---
Date of Service October 12, 2023 Assessment & Plan (1) Acute exacerbation of chronic obstructive pulmonary disease: Plan: Acute on chronic Improving with IV steroids, guaifenesin, Levaquin, and with comfort of being in hospital and away from home environment Continue Levaquin but change to po for 2 more doses fpr total of 5 BCxs no growth and CXR no PNA Continue maintenance inhalers and albuterol prn COntinue Trilogy machine from home Wean steroids down to 40mg qAM from 20mg tid and plan to keep on prednisone 10mg daily chronically if it will keep her feeling better and out of the hospital Add on tesslon perles 200mg po tid (2) Acute hypokalemia: Plan: remains mildly low , from diuretics continue KCl 20 meq po bid and follow BMP, Mag in AM (3) Diabetes: Plan: With hyperglycemia from steroids weaning down steroids tighten down CF and CR continue NPH (4) Elevated troponin: Plan: Mild. No acute EKG changes. No evidence of acute coronary syndrome (5) Tobacco abuse counseling: Plan: stressed smoking cessation (6) History of pulmonary embolism: Plan: Continue Lovenox (7) Chronic hypoxic respiratory failure: Plan: She typically uses 3 L of oxygen per minute per nasal cannula at bedtime (8) Heart failure with preserved ejection fraction: Plan: stable, with chronic peripheral edema continue bumex, metolazone, KCl add TIGRE hose (9) Generalized anxiety disorder: Plan: continue Celexa if she is willing to take continue tid home xanax Plan Multiple myeloma: With a history of stem cell transplant 10 years ago Does have an expansile lesion in the right fourth rib unchanged from previous CT 1 year ago She has an appointment pending with her oncologist back in her hometown [facility] in 1 month Unclear if her persistent leukocytosis is related to her multiple myeloma Follow-up with hematology/oncology Dispo-continued stay until she is comfortable with going home. Downgrade off tele This is her 10th admission in 6 months Admission and Anticipated Discharge Date Admission Date: October 08, 2023 Subjective Pt reports ongoing coughing and burning in her lungs with coughing. Is ambulating multiple times around the [facility]olan as per RN and also walks out to the vending machines to get snacks. Reports legs are still swelling and is agreeable to TIGRE hose. Wants to keep weaning off Suboxine Also reports that she has extra prednisone at home and when she feels bad, taking 10mg of it always helps her. SHe asks about staying on prednisone chronically until she can get through the pollen season. Tele with NSR, PACs, rates 90-100s Physical Exam Constitutional: WD/WN, vitals as above Respiratory: normal respiratory effort and + cough Auscultation: + wheezes (end forced expiratory wheezes bilat, upper airways); no crackles and no rhonchi Cardiovascular: Rate/Rhythm: regular rate and regular rhythm Heart Sounds: no murmur Extremities: + edema (1+ pitting edema legs bilat) Psychiatric: Orientation: alert and oriented x 3 Affect: + anxious affect Mood: + anxious mood Results & Data Results & Data Vital Signs (Past 12 Hours) Vital Signs Temp Pulse Pulse Pulse Resp BP Pulse Ox 10/12/23 15:00 36.5 C 103 H 20 105/72 94 10/12/23 14:04 102 H 10/12/23 13:08 97 H 19 98 10/12/23 10:56 36.9 C 99 H 20 132/88 97 10/12/23 09:00 10/12/23 07:45 36.5 C 99 H 20 114/77 98 10/12/23 07:00 86 10/12/23 06:21 92 H 22 96 O2 Del Method FiO2 10/12/23 15:00 Room Air 10/12/23 14:04 10/12/23 13:08 Room Air 21 10/12/23 10:56 Room Air 10/12/23 09:00 Room Air 10/12/23 07:45 Room Air 10/12/23 07:00 10/12/23 06:21 Room Air Laboratory Results BMP, blood cxs reviewed PG Care Time/CCT Total # of Minutes Spent Total Time Spent with Patient: Total time spent is greater than 50% in coordination of care (as documented) at patient's floor/unit and/or counseling patient: Coding Level of Care Code 95996 SUB INP/OBS CARE 2/35MIN Diagnoses Acute exacerbation of chronic obstructive pulmonary disease J44.1 Acute hypokalemia E87.6 Type 2 diabetes mellitus without complication, with long-term current use of insulin E11.9; Z79.4 Diabetes mellitus type: type 2 Diabetes mellitus intermediate project manager insulin use: with intermediate project manager use Diabetes mellitus complication status: without complication Elevated troponin R79.89 Tobacco abuse counseling Z71.6 History of pulmonary embolism Z86.711 Chronic hypoxic respiratory failure J96.11 Chronic heart failure with preserved ejection fraction I50.32 Heart failure chronicity: chronic Generalized anxiety disorder F41.1 (3) Diabetes Diabetes mellitus type: type 2 Diabetes mellitus fci insulin use: with fci use Diabetes mellitus complication status: without complication Qualified Code(s): E11.9 - Type 2 diabetes mellitus without complications; Z79.4 - residential (current) use of insulin (8) Heart failure with preserved ejection fraction Heart failure chronicity: chronic Qualified Code(s): I50.32 - Chronic diastolic (congestive) heart failure
[2023-10-12] MEDS: BENZONATATE 100 MG CAPSULE PO SCH (18:17)
[2023-10-12] MEDS: BUPRENORPHINE/NALOXONE 2/0.5MG TAB SL SCH (20:18)
[2023-10-13] MEDS: predniSONE 20 MG TAB PO SCH (08:06)
[2023-10-13] MEDS: MONTELUKAST SODIUM 10 MG TABLET PO SCH (08:06)
[2023-10-13 09:02] LABS: BUN Creatinine Ratio 35.6 (10-20); Calcium 10.4 mg/dl (8.6-10.3); Creatinine Clr Calc Pharmacy 47.5 ml/min; Est GFR (Non-African American) 43.1 ml/min; Magnesium 2.4 mg/dl (1.7-2.4); Potassium 3.7 mmol/L (3.5-5.1)
[2023-10-13] MEDS: CARBOHYDRATES FOR HYPOGLYCEMIA PO PRN (11:42)
--- NOTE | 2023-10-13 13:03 | Hospitalist Progress Note ---
Date of Service October 13, 2023 Assessment & Plan (1) Acute exacerbation of chronic obstructive pulmonary disease: Plan: Acute on chronic Improving with steroids, guaifenesin, Levaquin, and with comfort of being in hospital and away from home environment, away from smoking cigarettes Continue Levaquin for 1 more dose for total of 5 BCxs no growth and CXR no PNA Continue maintenance inhalers and albuterol prn COntinue Trilogy machine at home, but asked RN to ensure RT offers her BiPAP while in hospital COntinue to wean steroids down to 40mg qAM and plan to keep on prednisone 10mg daily chronically if it will keep her feeling better and out of the hospital Continue on tesslon perles 200mg po tid She is willing to take SIngulair 10mg daily (2) Acute hypokalemia: Plan: Improving, from diuretics continue KCl 20 meq po bid and follow BMP, Mag in AM (3) Diabetes: Plan: With hyperglycemia from steroids now resolved with weaning down steroids Pt would like switched back to Lantus-changed to Lantus 60 units qAM, dc NPH Continue same Novlog SSI (4) Elevated troponin: Plan: Mild. No acute EKG changes. No evidence of acute coronary syndrome (5) Tobacco abuse counseling: Plan: stressed smoking cessation (6) History of pulmonary embolism: Plan: Continue Lovenox (7) Chronic hypoxic respiratory failure: Plan: She typically uses 3 L of oxygen per minute per nasal cannula at bedtime (8) Heart failure with preserved ejection fraction: Plan: stable, with chronic peripheral edema now improved with TIGRE hose continue bumex, metolazone, KCl continue TIGRE hose (9) Generalized anxiety disorder: Plan: dc Celexa as she is not willing to take continue tid home xanax Plan Multiple myeloma: With a history of stem cell transplant 10 years ago Does have an expansile lesion in the right fourth rib unchanged from previous CT 1 year ago She has an appointment pending with her oncologist back in her hometown of [place] in 1 month Unclear if her persistent leukocytosis is related to her multiple myeloma Follow-up with hematology/oncology Chronic opioid dependence-weaning off Suboxone-down to 8mg in AM and 2mg qPM x 1 week, then go to 8mg qAM on 10/18 Dispo-continued stay until she is comfortable with going home This is her 10th admission in 6 months Asked CM to discuss with OOA on housing options for her back in her hometown where she wants to move Admission and Anticipated Discharge Date Admission Date: October 08, 2023 Subjective Pt reports still feeling SOB and panicked when she woke up this AM. Yet she did talk to me for 25 min straight without stopping after I watched her walk back from the bathroom without any tachypnea or accessory muscle use. She does admit to being fearful of taking the SIngulair I wanted to start but is willing to try it now. Continues to not want to try the Celexa because she doesn't want "too many chemicals" in her system. RT has not been offering her BiPAP at nighttime to try and she is willing to do so now Physical Exam Constitutional: WD/WN, vitals as above Respiratory: normal respiratory effort and + cough Auscultation: + wheezes (end forced expiratory wheezes bilat, upper airways); no crackles and no rhonchi Cardiovascular: Rate/Rhythm: regular rate and regular rhythm Heart Sounds: no murmur Extremities: no edema (improved, with TIGRE hose on) Psychiatric: Orientation: alert and oriented x 3 Affect: + anxious affect Mood: + anxious mood Results & Data Results & Data Vital Signs (Past 12 Hours) Vital Signs Temp Pulse Resp BP Pulse Ox O2 Del Method 10/13/23 10:21 Room Air 10/13/23 07:25 99 H 18 98 Room Air 10/13/23 07:23 36.5 C 94 H 18 142/99 H 98 Room Air Laboratory Results BMP, magnesium reviewed PG Care Time/CCT Total # of Minutes Spent Total Time Spent with Patient: Total time spent is greater than 50% in coordination of care (as documented) at patient's floor/unit and/or counseling patient: Coding Level of Care Code 58383 SUB INP/OBS CARE 2/35MIN Diagnoses Acute exacerbation of chronic obstructive pulmonary disease J44.1 Acute hypokalemia E87.6 Type 2 diabetes mellitus without complication, with long-term current use of insulin E11.9; Z79.4 Diabetes mellitus type: type 2 Diabetes mellitus custodial insulin use: with custodial use Diabetes mellitus complication status: without complication Elevated troponin R79.89 Tobacco abuse counseling Z71.6 History of pulmonary embolism Z86.711 Chronic hypoxic respiratory failure J96.11 Chronic heart failure with preserved ejection fraction I50.32 Heart failure chronicity: chronic Generalized anxiety disorder F41.1 (3) Diabetes Diabetes mellitus type: type 2 Diabetes mellitus manager terminal insulin use: with custodial use Diabetes mellitus complication status: without complication Qualified Code(s): E11.9 - Type 2 diabetes mellitus without complications; Z79.4 - tank terminal gauger (current) use of insulin (8) Heart failure with preserved ejection fraction Heart failure chronicity: chronic Qualified Code(s): I50.32 - Chronic diastolic (congestive) heart failure
[2023-10-14 08:10] LABS: BUN Creatinine Ratio 39.1 (10-20); Calcium 9.5 mg/dl (8.6-10.3); Est GFR (African American) 51.9 ml/min; Est GFR (Non-African American) 44.8 ml/min; Magnesium 2.3 mg/dl (1.7-2.4)
[2023-10-14] MEDS: LANTUS PER UNIT CHARGE SQ SCH (08:47)
[2023-10-14] MEDS: POTASSIUM CHLORIDE CRTAB 20 MEQ TABCR PO STA (10:27)
--- NOTE | 2023-10-14 19:16 | Hospitalist Progress Note ---
Date of Service October 14, 2023 Assessment & Plan (1) Acute exacerbation of chronic obstructive pulmonary disease: Plan: Acute on chronic Improving with steroids, guaifenesin, Levaquin, and with comfort of being in hospital and away from home environment, away from smoking cigarettes Completed a 5-day course of Levaquin BCxs no growth and CXR no PNA Continue maintenance inhalers and albuterol prn COntinue Trilogy machine at home, she is still wearing the BiPAP only minimally here COntinue to wean steroids down to 30mg qAM for tomorrow and plan to keep on prednisone 10mg daily chronically if it will keep her feeling better and out of the hospital Continue on tesslon perles 200mg po tid She is willing to take SIngulair 10mg daily-she took her first dose on 10/12 (2) Acute hypokalemia: Plan: Ongoing, from diuretics Given extra 40 mEq of p.o. potassium chloride today on top of the 20 mEq twice daily scheduled and increase standing dose to KCl 40 meq po bid Follow BMP, Mag in AM (3) Diabetes: Plan: With hyperglycemia from steroids-blood sugars remain labile Continue Lantus 60 units qAM Continue same Novlog SSI Continue weaning steroids (4) Elevated troponin: Plan: Mild. No acute EKG changes. No evidence of acute coronary syndrome (5) Tobacco abuse counseling: Plan: stressed smoking cessation (6) History of pulmonary embolism: Plan: Continue Lovenox (7) Chronic hypoxic respiratory failure: Plan: She typically uses 3 L of oxygen per minute per nasal cannula at bedtime (8) Heart failure with preserved ejection fraction: Plan: stable, with chronic peripheral edema now improved with TIGRE hose continue bumex, metolazone, KCl continue TIGRE hose (9) Generalized anxiety disorder: Plan: dcd Celexa as she is not willing to take yet-she wants to see if weaning off the Suboxone will help her anxiety continue tid home xanax but schedule it for 7 AM, 1300, and 1900 at her request Plan Multiple myeloma: With a history of stem cell transplant 10 years ago Does have an expansile lesion in the right fourth rib unchanged from previous CT 1 year ago She has an appointment pending with her oncologist back in her hometown of [place] in 1 month Unclear if her persistent leukocytosis is related to her multiple myeloma Follow-up with hematology/oncology as an outpatient Chronic opioid dependence-weaning off Suboxone-down to 8mg in AM and 2mg qPM x 1 week, then go to 8mg qAM on 10/18 Dispo-continued stay until she is comfortable with going home-possibly tomorrow This is her 10th admission in 6 months Asked CM to discuss with OOA on housing options for her back in her hometown where she wants to move-appreciate this Admission and Anticipated Discharge Date Admission Date: October 08, 2023 Anticipated date of discharge: 10/15/23 Subjective Patient reports feeling better today, less short of breath. She feels like she is starting to make a plan to get home likely tomorrow. She feels afraid to be alone and is grateful it seems that case management is reaching out to help her get housing in her hometown. Otherwise, reports she has been drinking Sprite with sugar in it which is driving up her blood sugars Physical Exam Constitutional: WD/WN, vitals as above Respiratory: normal respiratory effort and + cough Auscultation: lungs clear to auscultation bilaterally Cardiovascular: Rate/Rhythm: regular rate and regular rhythm Heart Sounds: no murmur Extremities: no edema (improved, with TIGRE hose on) Psychiatric: Orientation: alert and oriented x 3 Affect: + anxious affect Mood: + anxious mood Results & Data Results & Data Vital Signs (Past 12 Hours) Vital Signs Temp Pulse Resp BP Pulse Ox O2 Del Method 10/14/23 15:56 37 C 105 H 16 110/76 96 Room Air 10/14/23 08:09 36.7 C 84 16 138/88 95 Room Air 10/14/23 07:45 Room Air Laboratory Results BMP, magnesium reviewed PG Care Time/CCT Total # of Minutes Spent Total Time Spent with Patient: Total time spent is greater than 50% in coordination of care (as documented) at patient's floor/unit and/or counseling patient: Coding Level of Care Code 42222 SUB INP/OBS CARE 2/35MIN Diagnoses Acute exacerbation of chronic obstructive pulmonary disease J44.1 Acute hypokalemia E87.6 Type 2 diabetes mellitus without complication, with long-term current use of insulin E11.9; Z79.4 Diabetes mellitus type: type 2 Diabetes mellitus long-term insulin use: with remote computer terminal operator use Diabetes mellitus complication status: without complication Elevated troponin R79.89 Tobacco abuse counseling Z71.6 History of pulmonary embolism Z86.711 Chronic hypoxic respiratory failure J96.11 Chronic heart failure with preserved ejection fraction I50.32 Heart failure chronicity: chronic Generalized anxiety disorder F41.1 (3) Diabetes Diabetes mellitus type: type 2 Diabetes mellitus remote computer terminal operator insulin use: with long-term use Diabetes mellitus complication status: without complication Qualified Code(s): E11.9 - Type 2 diabetes mellitus without complications; Z79.4 - penitentiary (current) use of insulin (8) Heart failure with preserved ejection fraction Heart failure chronicity: chronic Qualified Code(s): I50.32 - Chronic diastolic (congestive) heart failure
[2023-10-14] MEDS: ALPRAZolam 0.5 MG TABLET PO SCH (19:34)
[2023-10-15] MEDS: ONDANSETRON 4 MG OD TAB PO PRN (06:44)
[2023-10-15 07:04] LABS: Hemoglobin 17.1 g/dl (12.0-16.0); Mean Corpuscular Hemoglobin 26.6 pg (25.0-34.0); Mean Corpuscular Hgb Conc 32.9 g/dL (32.0-36.0); Mean Corpuscular Volume 80.7 fL (80.0-100.0); Mean Platelet Volume 9.5 fL (9.4-12.4); Platelet Count 307 K/uL (130-400); RDW Coefficient of Variation 18.2 % (11.5-14.5); RDW Standard Deviation 47.8 fL (36.4-46.3); Red Blood Count 6.44 M/uL (4.20-5.40); White Blood Count 20.28 K/ul (4.8-10.8)
[2023-10-15 07:23] LABS: Calcium 9.6 mg/dl (8.6-10.3); Magnesium 2.3 mg/dl (1.7-2.4)
[2023-10-15 07:29] LABS: BUN Creatinine Ratio 49.5 (10-20); Creatinine Clr Calc Pharmacy 61.8 ml/min; Est GFR (African American) 69.1 ml/min; Est GFR (Non-African American) 59.6 ml/min
[2023-10-15] MEDS: POTASSIUM CHLORIDE CRTAB 20 MEQ TABCR PO SCH (08:51)
[2023-10-15] MEDS: predniSONE 10 MG TABLET PO SCH (08:52)
[2023-10-15] MEDS: POTASSIUM CHLORIDE CRTAB 20 MEQ TABCR PO STA (12:31)
--- NOTE | 2023-10-15 14:17 | Hospitalist Progress Note ---
Date of Service October 15, 2023 Assessment & Plan (1) Acute exacerbation of chronic obstructive pulmonary disease: Plan: Acute on chronic Improving slowly with steroids, guaifenesin, Levaquin, and with comfort of being in hospital and away from home environment, away from smoking cigarettes Completed a 5-day course of Levaquin BCxs no growth and CXR no PNA. Sputum sample never collected Continue maintenance inhalers and albuterol prn Continue Trilogy machine at home, she is still wearing the BiPAP only minimally here Continue to wean steroids down to 20mg qAM for tomorrow and plan to keep on prednisone 10mg daily chronically if it will keep her feeling better and out of the hospital Continue on Tessalon Perles 200mg po tid She is willing to take Singulair 10mg daily-she took her first dose on 10/12 (2) Acute hypokalemia: Plan: Ongoing, from diuretics and causing leg cramps. K+ 3.0 today COntinue KCl 40 meq po bid and give an extra 20 meq today Follow BMP, Mag in AM Decrease Zaroxolyn to 2.5mg po on MF-hold for tomorrow (3) Diabetes: Plan: With hyperglycemia from steroids-blood sugars remain labile Continue Lantus 60 units qAM Continue same Novlog SSI Continue weaning steroids (4) Elevated troponin: Plan: Mild. No acute EKG changes. No evidence of acute coronary syndrome (5) Tobacco abuse counseling: Plan: stressed smoking cessation (6) History of pulmonary embolism: Plan: Continue Lovenox (7) Chronic hypoxic respiratory failure: Plan: She typically uses 3 L of oxygen per minute per nasal cannula at bedtime (8) Heart failure with preserved ejection fraction: Plan: stable, with chronic peripheral edema now resolved with TIGRE hose continue bumex, metolazone, KCl continue TIGRE hose (9) Generalized anxiety disorder: Plan: dcd Celexa as she is not willing to take yet-she wants to see if weaning off the Suboxone will help her anxiety continue tid home xanax but scheduled it for 7 AM, 1300, and 1900 at her request Plan Multiple myeloma: With a history of stem cell transplant 10 years ago Does have an expansile lesion in the right fourth rib unchanged from previous CT 1 year ago She has an appointment pending with her oncologist back in her hometown of [place] in 1 month Unclear if her persistent leukocytosis is related to her multiple myeloma Follow-up with hematology/oncology as an outpatient Chronic opioid dependence-weaning off Suboxone-down to 8mg in AM and 2mg qPM x 1 week, then go to 8mg qAM on 10/18 Dispo-continued stay until she is comfortable with going home-possibly tomorrow This is her 10th admission in 6 months Asked CM to discuss with OOA on housing options for her back in her hometown where she wants to move-appreciate this Admission and Anticipated Discharge Date Admission Date: October 08, 2023 Subjective Had severe leg cramps last night in legs and couldn't sleep. Otherwise is ambulating around the dolan, no other new complaints. She is now able to get some sputum up Does not feel ready to go home yet Physical Exam Constitutional: WD/WN, vitals as above Respiratory: normal respiratory effort Auscultation: lungs clear to auscultation bilaterally and + wheezes (end forced expiratory wheezes bilat, upper airways); no crackles and no rhonchi Cardiovascular: Rate/Rhythm: regular rate and regular rhythm Heart Sounds: no murmur Extremities: no edema Psychiatric: Orientation: alert and oriented x 3 Affect: + anxious affect Mood: + anxious mood Results & Data Results & Data Vital Signs (Past 12 Hours) Vital Signs Temp Pulse Resp BP Pulse Ox O2 Del Method 10/15/23 09:23 36.6 C 83 16 130/85 96 Room Air 10/15/23 08:55 Room Air 10/15/23 07:43 100 H 18 90 Room Air Laboratory Results BMP, magnesium, CBC reviewed PG Care Time/CCT Total # of Minutes Spent Total Time Spent with Patient: Total time spent is greater than 50% in coordination of care (as documented) at patient's floor/unit and/or counseling patient: Coding Level of Care Code 00354 SUB INP/OBS CARE 2/35MIN Diagnoses Acute exacerbation of chronic obstructive pulmonary disease J44.1 Acute hypokalemia E87.6 Type 2 diabetes mellitus without complication, with long-term current use of insulin E11.9; Z79.4 Diabetes mellitus type: type 2 Diabetes mellitus termite treater insulin use: with residential use Diabetes mellitus complication status: without complication Elevated troponin R79.89 Tobacco abuse counseling Z71.6 History of pulmonary embolism Z86.711 Chronic hypoxic respiratory failure J96.11 Chronic heart failure with preserved ejection fraction I50.32 Heart failure chronicity: chronic Generalized anxiety disorder F41.1 (3) Diabetes Diabetes mellitus type: type 2 Diabetes mellitus residential insulin use: with termite treater use Diabetes mellitus complication status: without complication Qualified Code(s): E11.9 - Type 2 diabetes mellitus without complications; Z79.4 - [facility] (current) use of insulin (8) Heart failure with preserved ejection fraction Heart failure chronicity: chronic Qualified Code(s): I50.32 - Chronic diastolic (congestive) heart failure
[2023-10-16] MEDS ORDERED: PHARMACY GLYCEMIC MGMT CONSULT PRN (00:01)
[2023-10-16] MEDS: INSULIN ASPART PER UNIT CHARGE SC SCH (00:21)
[2023-10-16] MEDS: NovoLIN-N (NPH) PER UNIT CHARGE SQ SCH (08:31)
[2023-10-16 08:35] LABS: Estimated Average Glucose 235 mg/dl; Hemoglobin A1C 9.8 % (4.5-5.6)
[2023-10-16] MEDS: predniSONE 20 MG TAB PO SCH (08:37)
[2023-10-16 08:49] LABS: BUN Creatinine Ratio 42.1 (10-20); Calcium 9.6 mg/dl (8.6-10.3); Creatinine Clr Calc Pharmacy 54.8 ml/min; Est GFR (African American) 59.7 ml/min; Est GFR (Non-African American) 51.5 ml/min; Magnesium 2.2 mg/dl (1.7-2.4); Potassium 2.9 mmol/L (3.5-5.1)
--- NOTE | 2023-10-16 10:00 | Pharmacy Report ---
Pharmacy Glycemic Short Note 2 - Date of Service October 16, 2023 - Glycemic Short BSG Results (Last 24 hours): 10/15/23 10/15/23 10/15/23 11:44 16:41 16:43 Glucose POC Glucose 95 331 H* 327 H* 10/15/23 10/15/23 10/16/23 20:27 22:36 00:19 Glucose POC Glucose 373 H* 213 H 122 H 10/16/23 10/16/23 10/16/23 04:09 07:23 07:39 Glucose 123 H POC Glucose 92 116 H OUTPATIENT ANTIDIABETIC REGIMEN: * Lantus 60 units QAM * Novolog 10 units AC & SS * HbA1c 9.8% (10/16/23) down from 10.5% (08/31/23) ASSESSMENT: * Janae is a 63 YOF admitted for COPD exacerbation and history of T2DM. She was subsequently started on steroids to aid in the treatment of her COPD which are currently being tapered down. Pharmacy has been consulted to assist with glycemic management while inpatient. Janae is known to the glycemic service. * Fasting BSG this AM within goal range, continue home Lantus dose. * Prandial BSGs very labile, appears to overcorrect, will loosen correctional factor. Add insulin NPH with prednisone to help better cover steroid induced hyperglycemia. Consider tighter carbohydrate coverage tomorrow to prevent BSG elevations if still needed after assessing NPH efficacy. PLAN FOR INPATIENT GLYCEMIC CONTROL: * Hold outpatient oral diabetes medications * Basal insulin * Lantus 60 units SQ QAM * Insulin NPH 40 units SQ daily w/ prednisone * Bolus insulin * NovoLog per scale ACHS or Q6hrs while NPO * Goal Range: Low 110 mg/dL - High 140 mg/dL * Correction Factor: 20 mg/dL/unit * Nutritional / Prandial insulin per carb ratio of 1 unit per 6 grams CHO consumed
[2023-10-16] MEDS: POTASSIUM CHLORIDE / WTR 10 MEQ/100 ML PLCT IV SCH (11:01)
[2023-10-16] MEDS: ACETAMINOPHEN 1,000 MG/100 ML VIAL IV STA (14:11)
--- NOTE | 2023-10-16 18:20 | Hospitalist Progress Note ---
Date of Service October 16, 2023 Assessment & Plan (1) Acute exacerbation of chronic obstructive pulmonary disease: Plan: Acute on chronic Improving slowly with steroids, guaifenesin, Levaquin, and with comfort of being in hospital and away from home environment, away from smoking cigarettes Completed a 5-day course of Levaquin BCxs no growth and CXR no PNA. Sputum sample never collected Continue maintenance inhalers and albuterol prn Continue Trilogy machine at home, she is still wearing the BiPAP only minimally here but will try again this evening as her elevated serum bicarb scared her Continue to wean steroids down to 10mg qAM for tomorrow and plan to keep on prednisone 10mg daily chronically if it will keep her feeling better and out of the hospital Continue on Tessalon Perles 200mg po tid She is willing to take Singulair 10mg daily-she took her first dose on 10/12 Dc fluticasone INH as she is on Pumicort bid and prefers nebs. COntinue Anoro for now and when goes home can take Pulmicort bid, Perforomist bid,and atrovent nebs qid scheduled (2) Acute hypokalemia: Plan: Ongoing, from diuretics and causing leg cramps at times--> worse today at 2.9 Replace withKCl po 40 meq po bid and 40 meq IV but she could only tolerate 20 meq IV all day so gave an extra 20 meq po Follow BMP, Mag in AM Decrease Zaroxolyn to 2.5mg po on MF (3) Diabetes: Plan: With hyperglycemia from steroids-blood sugars remain labile Continue Lantus 60 units qAM Continue same Novlog SSI Continue weaning steroids (4) Elevated troponin: Plan: Mild. No acute EKG changes. No evidence of acute coronary syndrome (5) Tobacco abuse counseling: Plan: stressed smoking cessation (6) History of pulmonary embolism: Plan: Continue Lovenox (7) Chronic hypoxic respiratory failure: Plan: She typically uses 3 L of oxygen per minute per nasal cannula at bedtime (8) Heart failure with preserved ejection fraction: Plan: stable, with chronic peripheral edema now resolved with TIGRE hose continue bumex, metolazone, KCl continue TIGRE hose (9) Generalized anxiety disorder: Plan: dcd Celexa as she is not willing to take yet-she wants to see if weaning off the Suboxone will help her anxiety continue tid home xanax but scheduled it for 7 AM, 1300, and 1900 at her request Plan Multiple myeloma: With a history of stem cell transplant 10 years ago Does have an expansile lesion in the right fourth rib unchanged from previous CT 1 year ago She has an appointment pending with her oncologist back in her hometown of [place] in 1 month, but if is not there, can make one here with [facility] Unclear if her persistent leukocytosis is related to her multiple myeloma Follow-up with hematology/oncology as an outpatient Chronic opioid dependence-weaning off Suboxone-down to 8mg in AM and 2mg qPM x 1 week, then go to 8mg qAM on 10/18 Dispo-continued stay until she is comfortable with going home and hypokalemia improved This is her 10th admission in 6 months Asked CM to discuss with OOA on housing options for her back in her hometown where she wants to move-appreciate this-no success Admission and Anticipated Discharge Date Admission Date: October 08, 2023 Subjective Having burning in hand from potassium and has taken all day to get 2 potassium riders-cancelled last 2 riders and will give an extra 20 meq of KCl. Otherwise had meeting with CDE and has a chart of how to take her insulin. Feeling better about leaving here and has hope her son will be getting the ideal rental house for her to live in her hometown soon. Physical Exam Constitutional: WD/WN, vitals as above Respiratory: normal respiratory effort Auscultation: lungs clear to auscultation bilaterally Cardiovascular: Rate/Rhythm: regular rate and regular rhythm Heart Sounds: no murmur Extremities: no edema Psychiatric: Orientation: alert and oriented x 3 Affect: + anxious affect Results & Data Results & Data Vital Signs (Past 12 Hours) Vital Signs Temp Pulse Resp BP Pulse Ox O2 Del Method 10/16/23 14:27 36.6 C 96 H 17 109/75 96 Room Air 10/16/23 08:57 Room Air 10/16/23 07:24 94 H 18 95 Room Air 10/16/23 07:18 36.7 C 86 16 113/76 94 Room Air Laboratory Results BMP, magnesium, HgbA1C reviewed PG Care Time/CCT Total # of Minutes Spent Total Time Spent with Patient: Total time spent is greater than 50% in coordination of care (as documented) at patient's floor/unit and/or counseling patient: Coding Level of Care Code 61471 SUB INP/OBS CARE Diagnoses Acute exacerbation of chronic obstructive pulmonary disease J44.1 Acute hypokalemia E87.6 Type 2 diabetes mellitus without complication, with long-term current use of insulin E11.9; Z79.4 Diabetes mellitus type: type 2 Diabetes 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: with local intermodal truck driver use Diabetes mellitus complication status: without complication Elevated troponin R79.89 Tobacco abuse counseling Z71.6 History of pulmonary embolism Z86.711 Chronic hypoxic respiratory failure J96.11 Chronic heart failure with preserved ejection fraction I50.32 Heart failure chronicity: chronic Generalized anxiety disorder F41.1 (3) Diabetes Diabetes mellitus type: type 2 Diabetes mellitus prison insulin use: with local intermodal truck driver use Diabetes mellitus complication status: without complication Qualified Code(s): E11.9 - Type 2 diabetes mellitus without complications; Z79.4 - termite control servicer (current) use of insulin (8) Heart failure with preserved ejection fraction Heart failure chronicity: chronic Qualified Code(s): I50.32 - Chronic diastolic (congestive) heart failure
[2023-10-16] MEDS: POTASSIUM CHLORIDE CRTAB 20 MEQ TABCR PO STA (19:23)
[2023-10-17 07:35] LABS: BUN Creatinine Ratio 44.3 (10-20); Calcium 9.3 mg/dl (8.6-10.3); Creatinine Clr Calc Pharmacy 64.4 ml/min; Est GFR (African American) 72.5 ml/min; Est GFR (Non-African American) 62.6 ml/min; Magnesium 2.3 mg/dl (1.7-2.4)
[2023-10-17] MEDS: INSULIN HUMAN NPH SC SCH (09:38)
[2023-10-17] MEDS: POTASSIUM CHLORIDE CRTAB 20 MEQ TABCR PO STA (10:13)
--- NOTE | 2023-10-17 11:38 | Discharge Summary ---
Discharge Summary Date of Service October 17, 2023 Principal Dx & Hospital Course #1 = Principal Diagnosis (1) Acute exacerbation of chronic obstructive pulmonary disease: Acute on chronic Improved with steroids, guaifenesin, Levaquin, and with comfort of being in hospital and away from home environment, away from smoking cigarettes Completed a 5-day course of Levaquin BCxs no growth and CXR no PNA. Sputum sample never collected Continue Trelegy daily and Atrovent/Xopenex nebs wid prn at home Continue Trilogy machine at home, she was able to wear the BiPAP only minimally here but was up to 3 hrs at a time before discharge. Serum bicarb levels down to 38 Gave burst of steroids and now down to 10mg qAM and plan to keep on prednisone 10mg daily chronically if it will keep her feeling better and out of the hospital Continue on Tessalon Perles 200mg po tid prn She is willing to take Singulair 10mg daily-continue on discharge for allergies and asthma (2) Acute hypokalemia: Ongoing, from diuretics and causing leg cramps at times--> improved to 3.0 on day of discharge Increase home KCl to 40 meq po tid Follow BMP as outpt on Thursday/Thursday w/ results to PCP Decreased Zaroxolyn to 2.5mg po on (3) Diabetes: With hyperglycemia from steroids-blood sugars remain labile but improved Increased Lantus 68 units qAM Continue Novlog SSI at home Seen by CDE and feels better, has a paper chart with how much insulin to give herself (4) Elevated troponin: Mild. No acute EKG changes. No evidence of acute coronary syndrome (5) Tobacco abuse counseling: stressed smoking cessation (6) History of pulmonary embolism: Continue Lovenox (7) Chronic hypoxic respiratory failure: She typically uses 3 L of oxygen per minute per nasal cannula at bedtime and now on Trilogy qhs (8) Heart failure with preserved ejection fraction: stable, with chronic peripheral edema now resolved with TIGRE hose continue bumex, metolazone, KCl continue TIGRE hose (9) Generalized anxiety disorder: dcd Celexa as she is not willing to take yet-she wants to see if weaning off the Suboxone will help her anxiety continue tid home xanax but scheduled it for 7 AM, 1300, and 1900 at her request Plan Multiple myeloma: With a history of stem cell transplant 10 years ago Does have an expansile lesion in the right fourth rib unchanged from previous CT 1 year ago She has an appointment pending with her oncologist back in her hometown of [place] in 1 month, but if is not there, can make one here with [facility] Unclear if her persistent leukocytosis is related to her multiple myeloma Follow-up with hematology/oncology as an outpatient Chronic opioid dependence-weaning off Suboxone-down to 8mg in AM and 2mg qPM x 1 week, then go to 8mg qAM on 10/18 Dispo-dc to home This is her 10th admission in 6 months Asked CM to discuss with OOA on housing options for her back in her hometown where she wants to move-appreciate this-no success Notes For Next Care Provider Check BMP on Thursday/Thursday after discharge for hypokalemia Weaning down Suboxone Needs outpt Oncology appt within 1 month locally if does not move back to [facility] Medication Changes From Visit Added prednisone 10mg po daily Made Atrovent/Xopenex nebs prn rather than scheduled Started Singulair 10mg po daily Started tessalon perles 200mg po tid prn cough Decreased metolazone to 2.5mg po 2x/wk on Increased potassium to 40 meq po tid Admission HPI Per Admitting Provider Janae is a 63-year-old female with a past medical history including severe COPD, chronic hypoxic respiratory failure using 3 LNC at bedtime, chronic ongoing tobacco use, opiate dependence on Suboxone, HFpEF, severe anxiety on chronic xanax, obesity hypoventilation syndrome, DMII, VTE on Lovenox, Multiple myeloma s/p Stem cell tx who presented to the [facility] ED on 10/08/23 with complaints of subjects swelling and increased SOB. This patient is well-known to the hospital medicine service as she has been admitted 9 times since April of this year for COPD exacerbations. Since her last discharge 10/01/2023 she has been filling up with fluid and believes she had gained approximately 6 pounds. She remains stable on her baseline 3 L nasal cannula and was otherwise stable. Labs were significant for a leukocytosis of 14 with neutrophil predominance of 10, VBG pH 7.43, pCO2 58, pO2 37, potassium of 3.1, initial high-sensitivity troponin of 18.5, and negative for respiratory bio fire. Chest x-ray was read as cardiomegaly without pulmonary edema, tree-in-bud nodules better seen on the comparison CT chest, and subsegmental bibasilar densities favoring atelectasis. The patient was given 2 mg Bumex prior to my evaluation. Patient was sitting in bed in no acute he states the time of exam. States that since her last discharge she has had ongoing issues with shortness of breath, wheezing. She states that she was attempting to use her at bedtime trilogy machine but states that she cannot tolerate at home. She understands she needs to quit smoking and is reportedly working on moving back to [place] to remove life stressors that pushed her to continue smoking. States she has had to use her as needed oxygen more frequently. Denies recent fever, chills, chest pain, increased cough, nausea/vomiting, abdominal pain, dysuria, hematuria, melena, lower extremity swelling and recent trauma. She understands she needs to quit smoking as this is what continues to cause her recurrent COPD exacerbations. She is a full code. Please refer to Dr. Aguilar's attestation for any changes to the treatment plan Discharge Exam Constitutional WD/WN, vitals as above Respiratory normal respiratory effort Auscultation: lungs clear to auscultation bilaterally; no crackles and no rhonchi Cardiovascular Rate/Rhythm: regular rate and regular rhythm Heart Sounds: no murmur Extremities: no edema Psychiatric Orientation: alert and oriented x 3 Affect: + anxious affect Mood: + anxious mood Updated Medication List Medication Instructions Recorded Confirmed Type buprenorphine 8 mg-naloxone 2 mg 1 film sublingual QAM 05/14/22 10/08/23 History sublingual film nystatin 100,000 unit/gram topical 1 applic topical BID PRN UNDER 05/14/22 10/08/23 History powder BREASTS NEEDED. ondansetron HCl 4 mg tablet 4 mg PO Q8H PRN NAUSEA/VOMITING 05/14/22 10/08/23 History quetiapine 200 mg tablet 200 mg PO HS 05/14/22 10/08/23 History insulin glargine 100 unit/mL (3 60 unit subcut QAM 06/21/22 10/08/23 History mL) subcutaneous pen ipratropium bromide 0.02 % 3 ml continuous nebulization QID 01/16/23 10/08/23 History solution for inhalation levalbuterol HCl 1.25 mg/3 mL 1.25 mg inhalation TID PRN 01/16/23 10/08/23 History solution for nebulization Shortness Of Breath Or Wheezing enoxaparin 150 mg/mL subcutaneous 150 mg subcut QAM 05/07/23 10/08/23 History syringe insulin aspart U-100 100 unit/mL 10 unit subcut AC 05/07/23 10/08/23 History (3 mL) subcutaneous pen (Novolog FlexPen U-100 Insulin aspart) alprazolam 0.5 mg tablet 0.5 mg PO TID #14 tabs 08/02/23 10/08/23 Rx albuterol sulfate 90 mcg/actuation 2 puff inhalation UD PRN Shortness 08/30/23 10/08/23 History aerosol inhaler Of Breath Or Wheezing buprenorphine 8 mg-naloxone 2 mg 0.5 film sublingual QPM 09/11/23 10/08/23 History sublingual film guaifenesin 600 mg tablet, 600 mg PO Q12 PRN Congestion 09/11/23 10/08/23 History extended release 12 hr (Mucinex) fluticasone propionate 50 1 spray intranasal BID nasal 09/15/23 10/08/23 Rx mcg/actuation nasal congestion #0 mL spray,suspension (Flonase Allergy Relief) fluticasone fur. 200 mcg-umeclid 1 ea inhalation QAM #60 ea 09/16/23 10/08/23 Rx 62.5 mcg-vilant 25 mcg inhalat.powder (Trelegy Ellipta) levalbuterol tartrate 45 2 puff inhalation Q4 PRN WHEEZE 09/16/23 10/08/23 Rx mcg/actuation aerosol inhaler #15 grams bumetanide 2 mg tablet 2 mg PO BID #60 tabs 09/29/23 10/08/23 Rx citalopram 10 mg tablet (Celexa) 10 mg PO DAILY #30 tabs 09/29/23 10/08/23 Rx metolazone 5 mg tablet 2.5 mg (1/2 x 5 mg) PO 3XWK #12 09/29/23 10/08/23 Rx tabs benzonatate 100 mg capsule 200 mg (2 x 100 mg) PO TID PRN 10/17/23 Rx cough #30 caps montelukast 10 mg tablet 10 mg PO DAILY #30 tabs 10/17/23 Rx (Singulair) potassium chloride 20 mEq 40 meq (2 x 20 mEq) PO TID #180 10/17/23 Rx tablet,extended release(part/cryst) tabs prednisone 10 mg tablet 10 mg PO QAM #30 tabs 10/17/23 Rx Hospital Stay Data Consultations 10/08/23 19:07 ED Decision to Admit Stat Pending Results Patient Have Any Pending Studies at Discharge: No Discharge Instructions Given to Patient (Per Discharging Provider) Please continue on prednisone 10mg daily for now to better control your COPD. It is critical that you not smoke at all when you go home. This will be very hard to do but you can do it! Please continue to use your Trilogy machine every night-it will take some getting used to, but each night will get a little easier. Please administer your insulin as delineated on your chart from the [facility]. Please continue taking the Singulair as this can help with allergies and asthma. Your metolazone was decreased to 2.5mg twice a week on Thursday and . Your potassium was increased to 40 meq three times a day. Please have blood work checked on Thursday or Thursday next week with the results to be sent to your PCP. Mela can tell you if you need more or less potassium supplementation after that. Total Time Total Time Spent Total Time Spent (In Minutes): 45 min Total Time Includes: Examination of the Patient, Discharge Planning and Medication Reconciliation Coding Level of Care Code 91827 INP/OBS DISCH >30 MIN Diagnoses Acute exacerbation of chronic obstructive pulmonary disease J44.1 Acute hypokalemia E87.6 Type 2 diabetes mellitus without complication, with long-term current use of insulin E11.9; Z79.4 Diabetes mellitus type: type 2 Diabetes mellitus intermediate frame tender insulin use: with custodial use Diabetes mellitus complication status: without complication Elevated troponin R79.89 Tobacco abuse counseling Z71.6 History of pulmonary embolism Z86.711 Chronic hypoxic respiratory failure J96.11 Chronic heart failure with preserved ejection fraction I50.32 Heart failure chronicity: chronic Generalized anxiety disorder F41.1
[2023-10-17] MEDS ORDERED: POTASSIUM CHLORIDE CRTAB 20 MEQ TABCR PO SCH (14:00)
[2023-10-18] MEDS ORDERED: predniSONE 10 MG TABLET PO SCH (09:00)
== END 2023-10-17 12:00 | disposition home or self-care (01) | DRG 191 ==
LOC: ED 16:03 → EDINP 19:21 → SUATTDRO 19:21 → EDINP 22:04 → 2N 10-09 01:14 → 3N 10-12 22:06

== ENCOUNTER 2023-10-25 11:44 | Inpatient (IN) ==
--- NOTE | 2023-10-25 12:06 | Emergency Department Note ---
Impression & Plan Hypoxia, SOB (shortness of breath), Leukocytosis, COPD exacerbation ED Provider Note NAME: LIANNE SAMUEL AGE: 63 SEX: F : 1960 ARRIVES VIA: Walk-In INFORMANT: [Patient] ED PROVIDER(S): [Cayetano Schrader MD] CHIEF COMPLAINT: Shortness of breath HISTORY OF PRESENT ILLNESS: The patient is a 63-year-old female with COPD as well as issues with fluid overload. The patient states that she had 4 days of increased shortness of breath with exertion, even just trying to walk to the bathroom. She has noticed some face, hand and leg swelling. She has had a dry cough. No fever. Patient has tried her nebulizer without relief. The patient states that she tried to get into her doctor's office and Thursday of this last week but there were no appointments. She was referred to the ER. The patient denies any fever. No recent sick contacts. She is on Bumex daily, she takes a small dose of prednisone chronically. PMHx/PSHx/Social Hx: See Below PHYSICAL EXAM: GENERAL: Patient is in mild respiratory distress. HEENT: No acute trauma, normocephalic atraumatic, mucous membranes moist, no nasal congestion. NECK: No stridor, no adenopathy, no meningismus, trachea is midline. LUNGS: Short of breath to just speak in longer sentences. Seems to have an increased respiratory rate. She has markedly diminished breath sounds bilaterally. HEART: Without murmurs gallops or rubs, mildly tachycardic with a regular rhythm. Heart tones are quite distant. ABDOMEN: Soft, nontender, no peritonitis. EXTREMITIES: No cyanosis, full range of motion of all the joints without pain or difficulty. Mild edema bilaterally. NEUROLOGIC: Oriented x 3, no acute motor or sensory deficits, no focal weakness. SKIN: No jaundice, no diaphoresis. DIFFERENTIAL DIAGNOSIS: CHF and fluid overload, anemia, renal failure, electrolyte imbalance, pneumonia or bronchitis, exacerbation of COPD, among others. EMERGENCY DEPARTMENT PROCEDURES: MEDICAL DECISION MAKING: There is a moderate leukocytosis, looking back at previous testing, the patient appears to have a chronically elevated white blood cell count. There is a normal hemoglobin and platelet count. No coagulopathy. No renal failure or significant electrolyte abnormality. No concerning liver enzyme elevation. BNP was not elevated making CHF less likely. ECG showed a normal sinus rhythm, there was some nonspecific ST change. No acute ST elevation. Cardiac enzyme testing x 1 was slightly elevated. This troponin elevation could be secondary cardiac injury or just mismatch from her dyspnea and hypoxia. Urinalysis did not show infection. Respiratory bio fire was negative. Chest x-ray does not show pneumonia or CHF. On exam, the patient's breath sounds were markedly diminished. At 1 point, she became hypoxic and required O2 supplementation. The patient was aggressively managed given her dyspnea and hypoxia. She was given 2 DuoNebs, she received IV Solu-Medrol. She was maintained on nasal cannula O2 supplementation. The patient appears to be having a flare of COPD. She does not appear to be significantly fluid overloaded. I did speak with the patient about her findings, she does feel slightly better but understands the need for a hospital stay. I spoke with case management, the on-call hospitalist was consulted. Prior/Outside records/notes reviewed: Discharge summary note from 10/17/2023 discussing her presentation for shortness of breath and the diagnosis of COPD flare. ECG per my interpretation: Indication was shortness of breath. The ECG shows a normal sinus rhythm with a rate of 100. There is some nonspecific ST change. 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 There is no acute ST elevation, no PVCs. The QTc is 425. Continuous Cardiac Monitoring per my interpretation: An order was placed for continuous cardiac monitoring. The monitor shows a rate of 105 with sinus tachycardia. Imaging/x-ray results per my interpretation: Chest x-ray does not show CHF or pneumonia. There was no pneumothorax. Chronic Medical/Social conditions affecting care: History of COPD on chronic steroids. Care/Management discussed with: Case management, the on-call hospitalist. Level of care consideration(s): After review of the information above and other included data: --I believe the patient requires escalation of care to admission Critical Care Note: I have personally spent 41 minutes of critical care time in the direct management of this patient. This includes bedside care, interpretation of diagnostic studies, and testing, discussion with consultants, patient, and family members, and other required patient management activities. This 41 minutes is in excess of all separately billable procedures. DISPOSITION: Admission Past Med/Surg History Problem List (Updated 10/25/23 @ 19:23 by Cayetano Schrader MD) COPD exacerbation (Acute) Leukocytosis (Acute) SOB (shortness of breath) (Acute) Hypoxia (Acute) Chronic hypoxic respiratory failure CHF (congestive heart failure) (Acute) Acute hypokalemia (Acute) Shortness of breath (Acute) Multiple myeloma Last chemotherapy 2017 Follows with medical oncology in [facility] Diabetes Hypokalemia Heart failure with preserved ejection fraction COPD (chronic obstructive pulmonary disease) (Acute) Shortness of breath (Acute) Generalized anxiety disorder Chronic respiratory failure with hypoxia and hypercapnia Tobacco abuse counseling Chronic hypercapnic respiratory failure Moderate persistent asthma Constipation History of pulmonary embolism Obesity hypoventilation syndrome Chronic anticoagulation Acute bronchitis Pulmonary vascular congestion Acute on chronic respiratory failure with hypoxia (Acute) Right knee pain Nasal fracture Rib fractures (Acute) COPD (chronic obstructive pulmonary disease) (Acute) Medical History Acute exacerbation of chronic obstructive pulmonary disease Tobacco abuse Opiate dependence Dyspnea Acute heart failure with preserved ejection fraction (HFpEF) Asthma Surgical History No pertinent past surgical history Family History (Updated 09/30/23 @ 19:11 by Petra Chan MD) Sister Asthma Social History Smoking Status: Current every day smoker Tobacco Type: Cigarettes Cigarettes Per Day: 1 cigarette per day; Second Hand Exposure: No; Do You Dip or Chew Tobacco: No; Hx Alcohol Use: No Hx Substance Use: No Preferred Language: Guamanian Communication Ability: Effective Transport Nurse Required: No Beliefs That Will Affect Care: None Current Living Situation: Family Current Living Situation Comment: lives with sister temporarily Other Information That Helps Us Care for You: No Feels Safe at Home: Yes Safety Concerns: Feels Safe At This Time Assistive Devices: Denture - Upper, Denture - Lower and Glasses Allergies Allergies Allergy/AdvReac Type Severity Reaction Status Date / Time codeine Allergy Severe Anaphylaxis Verified 10/25/23 15:04 Iodinated Contrast Media Allergy Severe Anaphylaxis Verified 10/25/23 15:04 shellfish derived Allergy Severe Anaphylaxis Verified 10/25/23 15:04 tramadol Allergy Intermediate ITCHINESS Verified 10/25/23 15:04 iohexol Allergy Unknown CAN'T Verified 10/25/23 15:04 REMEMBER diphenhydramine AdvReac Severe Anxiety Verified 10/25/23 15:04 [From Benadryl] promethazine AdvReac Intermediate Anxiety Verified 10/25/23 15:04 Home Meds Home Medications Medication Instructions Recorded Confirmed buprenorphine 8 mg-naloxone 2 mg 0.5 film sublingual BID 05/14/22 10/25/23 sublingual film nystatin 100,000 unit/gram topical 1 applic topical BID PRN UNDER 05/14/22 10/25/23 powder BREASTS NEEDED. ondansetron HCl 4 mg tablet 4 mg PO Q8H PRN NAUSEA/VOMITING 05/14/22 10/25/23 quetiapine 200 mg tablet 200 mg PO HS 05/14/22 10/25/23 levalbuterol HCl 1.25 mg/3 mL 1.25 mg inhalation TID PRN 01/16/23 10/25/23 solution for nebulization Shortness Of Breath Or Wheezing enoxaparin 150 mg/mL subcutaneous 150 mg subcut QAM 05/07/23 10/25/23 syringe albuterol sulfate 90 mcg/actuation 2 puff inhalation UD PRN Shortness 08/30/23 10/25/23 aerosol inhaler Of Breath Or Wheezing guaifenesin 600 mg tablet, 600 mg PO Q12 PRN Congestion 09/11/23 10/25/23 extended release 12 hr (Mucinex) Previous Rx's Medication Instructions Recorded alprazolam 0.5 mg tablet 0.5 mg PO TID #14 tabs 08/02/23 fluticasone propionate 50 1 spray intranasal BID nasal 09/15/23 mcg/actuation nasal congestion #0 mL spray,suspension (Flonase Allergy Relief) fluticasone fur. 200 mcg-umeclid 1 ea inhalation QAM #60 ea 09/16/23 62.5 mcg-vilant 25 mcg inhalat.powder (Trelegy Ellipta) levalbuterol tartrate 45 2 puff inhalation Q4 PRN WHEEZE 09/16/23 mcg/actuation aerosol inhaler #15 grams bumetanide 2 mg tablet 2 mg PO BID #60 tabs 09/29/23 benzonatate 100 mg capsule 200 mg (2 x 100 mg) PO TID PRN 10/17/23 cough #30 caps insulin aspart U-100 100 unit/mL See Rx Instructions .Route 10/17/23 (3 mL) subcutaneous pen (Novolog .COMPLEX #15 mL FlexPen U-100 Insulin aspart) insulin glargine 100 unit/mL (3 68 unit (0.68 mL) subcut QAM #15 mL 10/17/23 mL) subcutaneous pen ipratropium bromide 0.02 % 3 ml continuous nebulization QID 10/17/23 solution for inhalation PRN shortness of breath #75 mL metolazone 5 mg tablet 2.5 mg (1/2 x 5 mg) PO 2XWK #12 10/17/23 tabs montelukast 10 mg tablet 10 mg PO DAILY #30 tabs 10/17/23 (Singulair) potassium chloride 20 mEq 40 meq (2 x 20 mEq) PO TID #180 10/17/23 tablet,extended release(part/cryst) tabs prednisone 10 mg tablet 10 mg PO QAM #30 tabs 10/17/23 Results & Data (ED) Vital Signs Vital Signs - 24 hr 10/25/23 11:45 10/25/23 11:50 10/25/23 11:50 Temperature 36.7 C Temperature Source Temporal Artery Scan Pulse Rate 105 H Pulse Rate [Apical] Respiratory Rate 22 Respiratory Effort / Characteristics Non-Labored Spontaneous Labored Respiratory Depth Normal Deep Respiratory Pattern Regular Tachypnea Blood Pressure 117/75 Blood Pressure Mean 89 Pulse Oximetry 94 92 Oxygen Delivery Method Room Air Room Air Room Air Oxygen Flow Rate Sepsis Recent Fever Within 48 Hours No Sepsis New/Unexplained Change in Mental Status N/A Sepsis Action Taken by Nursing No Action Required Oxygen Flow Rate - Titration Pulse Oximetry Post Tiitration 10/25/23 11:50 10/25/23 12:19 10/25/23 13:11 Temperature Temperature Source Pulse Rate 97 H Pulse Rate [Apical] Respiratory Rate 28 H Respiratory Effort / Characteristics Respiratory Depth Respiratory Pattern Tachypnea Blood Pressure Blood Pressure Mean Pulse Oximetry 86 L Oxygen Delivery Method Room Air Oxygen Flow Rate Sepsis Recent Fever Within 48 Hours Sepsis New/Unexplained Change in Mental Status Sepsis Action Taken by Nursing Oxygen Flow Rate - Titration 2 Pulse Oximetry Post Tiitration 93 10/25/23 14:00 Temperature Temperature Source Pulse Rate Pulse Rate [Apical] 94 H Respiratory Rate 24 Respiratory Effort / Characteristics Respiratory Depth Normal Respiratory Pattern Blood Pressure Blood Pressure Mean Pulse Oximetry 95 Oxygen Delivery Method Nasal Cannula Oxygen Flow Rate 2 Sepsis Recent Fever Within 48 Hours Sepsis New/Unexplained Change in Mental Status Sepsis Action Taken by Nursing Oxygen Flow Rate - Titration Pulse Oximetry Post Tiitration Home Medications Current Medication List: was personally reviewed by me Laboratory Data Attestation: I reviewed the patient's lab results. 10/25/23 12:09 10/25/23 12:09 Lab Results 10/25/23 10/25/23 Range/Units 12:09 14:14 WBC 17.66 H (4.8-10.8) K/ul RBC 4.95 (4.20-5.40) M/uL Hgb 13.2 (12.0-16.0) g/dl Hct 40.5 (37.0-47.0) % MCV 81.8 (80.0-100.0) fL MCH 26.7 (25.0-34.0) pg MCHC 32.6 (32.0-36.0) g/dL RDW Std Deviation 51.6 H (36.4-46.3) fL RDW Coeff of Malick 17.9 H (11.5-14.5) % Plt Count 262 (130-400) K/uL MPV 9.8 (9.4-12.4) fL Immature Gran % (Auto) 1.1 % Neut % (Auto) 82.5 % Lymph % (Auto) 12.4 % Gilliam % (Auto) 3.1 % Eos % (Auto) 0.7 % Baso % (Auto) 0.2 % Neut # (Auto) 14.56 H (1.40-6.50) K/uL Lymph # (Auto) 2.19 (1.20-3.40) K/uL Gilliam # (Auto) 0.55 (0.11-0.59) K/uL Eos # (Auto) 0.12 (0.00-0.50) K/uL Baso # (Auto) 0.04 (0.00-0.20) K/uL Immature Gran # (Auto) 0.20 (0.01-0.20) K/uL PT 10.8 (9.0-12.0) Seconds INR 1.0 (0.9-1.1) APTT 27 (21-31) Seconds PTT Ratio 1.0 Sodium 137 (136-145) mmol/L Potassium 3.7 (3.5-5.1) mmol/L Chloride 94 L (98-107) mmol/L Carbon Dioxide 33 H (21-32) mmol/L Anion Gap 10 (3-11) BUN 47 H (6-23) mg/dl Creatinine 0.89 D (0.6-1.2) mg/dl Est Cr Clr Drug Dosing 70.6 ml/min Est GFR ( Amer) 80.5 ml/min Est GFR (Non-Af Amer) 69.5 ml/min BUN/Creatinine Ratio 52.8 H (10-20) Glucose 174 H (70-99(Fasting)) mg/dl Calcium 8.9 (8.6-10.3) mg/dl Magnesium 2.0 (1.7-2.4) mg/dl Total Bilirubin 0.3 (0.2-1.0) mg/dl AST 14 (13-39) U/L ALT 22 (7-52) U/L Alkaline Phosphatase 82 (34-104) U/L Troponin I High Sens 20.4 H 22.2 H (0-14) pg/ml B-Natriuretic Peptide 88 (0-100) pg/ml Total Protein 6.5 (6.0-8.3) gm/dl Albumin 3.7 (3.4-5.0) gm/dl Globulin 2.8 (2.5-4.0) gm/dl Albumin/Globulin Ratio 1.3 (0.9-2) Urine Color Yellow Urine Appearance Clear (Clear) Urine pH 6.5 (4.5-7.5) Ur Specific Disney 1.009 (1.000-1.030) Urine Protein Negative (Negative) Urine Glucose (UA) Negative (Negative) Urine Ketones Negative (Negative) Urine Blood Negative (Negative) Urine Nitrite Negative (Negative) Urine Bilirubin Negative (Negative) Urine Urobilinogen Negative (Negative) Ur Leukocyte Esterase Negative (Negative) Adenovirus (PCR) Not Detected (NotDetected) B. pertussis DNA (PCR) Not Detected (NotDetected) B.parapertussis DNA PCR Not Detected (NotDetected) C. pneumoniae DNA (PCR) Not Detected (NotDetected) Coronavirus OC43 (PCR) Not Detected (NotDetected) Coronavirus HKU1 (PCR) Not Detected (NotDetected) Coronavirus 229E (PCR) Not Detected (NotDetected) SARS-CoV-2 (PCR) Not Detected (NotDetected) Coronavirus NL63 (PCR) Not Detected (NotDetected) Human Metapneumovir PCR Not Detected (NotDetected) Influenza Type A (PCR) Not Detected (NotDetected) Influenza Type B (PCR) Not Detected (NotDetected) M. pneumoniae (PCR) Not Detected (NotDetected) Parainfluenza 1 (PCR) Not Detected (NotDetected) Parainfluenza 2 (PCR) Not Detected (NotDetected) Parainfluenza 3 (PCR) Not Detected (NotDetected) Parainfluenza 4 (PCR) Not Detected (NotDetected) RSV (PCR) Not Detected (NotDetected) Entero/Rhino (PCR) Not Detected (NotDetected) Administered Medications Alprazolam (Alprazolam 0.25 Mg Tablet) 0.25 mg PO Q6H PRN PRN Reason: Anxiety/Agitation Stop: 11/24/23 14:16 Last Admin: 10/25/23 15:38 Dose: 0.25 mg Documented By: GABRIEL Alprazolam (Alprazolam 0.5 Mg Tablet) 0.5 mg PO TID [facility] Stop: 11/24/23 15:32 Last Admin: 10/25/23 17:21 Dose: 0.5 mg Documented By: GABRIEL Bumetanide 2 mg/ Syringe 8 mls @ 4 mls/min IV BID@0900,1700 [facility] Stop: 11/24/23 16:59 Last Admin: 10/25/23 17:21 Dose: 4 mls/min Documented By: GABRIEL Insulin Aspart (Insulin Aspart Per Unit Charge) 0 units SC ACHS [facility]LETCHER Stop: 11/24/23 16:29 Last Admin: 10/25/23 17:35 Dose: 14 units Documented By: GABRIEL Co-signed By: BARI Levalbuterol HCl (Levalbuterol 1.25 Mg/3 Ml Neb) 1.25 mg INH TID PRN PRN Reason: Shortness Of Breath Or Wheezing Stop: 11/24/23 15:32 Last Admin: 10/25/23 19:16 Dose: 1.25 mg Documented By: GEETA Potassium Chloride (Potassium Chloride Crtab 20 Meq Tabcr) 40 meq PO TID [facility]LETCHER Stop: 11/24/23 15:44 Last Admin: 10/25/23 17:20 Dose: Not Given Documented By: GABRIEL Discontinued Medications Albuterol (Albut/Ipratrop 3mg/0.5mg Neb 3 Ml Vial) 3 ml NEB NOW STA; Protocol Stop: 10/25/23 12:02 Last Admin: 10/25/23 12:13 Dose: 3 ml Documented By: CARLOS Albuterol (Albut/Ipratrop 3mg/0.5mg Neb 3 Ml Vial) 3 ml NEB NOW STA; Protocol Stop: 10/25/23 13:24 Last Admin: 10/25/23 13:31 Dose: 3 ml Documented By: CARLOS Methylprednisolone 40 mg/ (Syringe) 0.64 mls @ 1.5 mls/min IV Q8 FLETCHER Stop: 11/24/23 15:59 Last Admin: 10/25/23 17:21 Dose: 1.5 mls/min Documented By: GABRIEL Insulin Aspart (Insulin Aspart Per Unit Charge) 10 units SC NOW STA Stop: 10/25/23 17:54 Last Admin: 10/25/23 18:36 Dose: 10 units Documented By: [facility] [place] Co-signed By: FRANK Methylprednisolone (Methylprednisolone 125 Mg/2 Ml Vial) 60 mg IV NOW STA Stop: 10/25/23 12:02 Last Admin: 10/25/23 12:14 Dose: 60 mg Documented By: CARLOS Imaging Data Radiologist's Impression: Chest X-Ray 10/25/23 11:54 XR chest 1V portable CLINICAL HISTORY: Dyspnea. COMPARISON STUDY: Chest CT September 30, 2023. Chest radiograph October 08, 2023. FINDINGS: Low lung volumes are unchanged. There is no pneumothorax or pleural effusion. Lower lung interstitial thickening is similar to prior exams. No consolidation is identified. Cardiomediastinal silhouette is stable. Expansile right fourth rib lesion is unchanged. IMPRESSION: No acute cardiopulmonary findings. No significant change in appearance of the chest. Stable lower lung interstitial thickening, likely chronic. ACT 112: Negative or not required by law. Electronically signed by: Hipolito Sevilla M.D. 10/25/2023 12:43 PM Discharge Plan Visit Data Chief Complaint: Shortness of Breath/Dyspnea Stated Complaint: SOB, ANKLES AND FINGERS SWELLING ED Provider: Cayetano Schrader Discharge Problem: Hypoxia, SOB (shortness of breath), Leukocytosis, COPD exacerbation Patient Disposition: Admitted As Inpatient Condition: Fair Discharge Instructions Interventions: ED Discharge Assessment Last Done: 10/25/23 15:10 Discharge Problem: Leukocytosis Qualifiers: Leukocytosis type: unspecified Qualified Code(s): D72.829 - Elevated white blood cell count, unspecified
[2023-10-25] MEDS: ALBUT/IPRATROP 3MG/0.5MG NEB 3 ML VIAL NEB STA ×2 (12:13→13:31)
[2023-10-25] MEDS: methylPREDNISolone 125 MG/2 ML VIAL IV STA (12:14)
[2023-10-25 12:32] LABS: Basophils # (auto) 0.04 K/uL (0.00-0.20); Basophils % (auto) 0.2 %; Eosinophils # (auto) 0.12 K/uL (0.00-0.50); Eosinophils % (auto) 0.7 %; Hematocrit (blood only) 40.5 % (37.0-47.0); Hemoglobin 13.2 g/dl (12.0-16.0); Immature Granulocytes % (auto) 1.1 %; Lymphocytes # (auto) 2.19 K/uL (1.20-3.40); Lymphocytes % (auto) 12.4 %; Mean Corpuscular Hemoglobin 26.7 pg (25.0-34.0); Mean Corpuscular Hgb Conc 32.6 g/dL (32.0-36.0); Mean Corpuscular Volume 81.8 fL (80.0-100.0); Mean Platelet Volume 9.8 fL (9.4-12.4); Monocytes # (auto) 0.55 K/uL (0.11-0.59); Monocytes % (auto) 3.1 %; Neutrophils # (auto) 14.56 K/uL (1.40-6.50); Neutrophils % (auto) 82.5 %; Platelet Count 262 K/uL (130-400); RDW Coefficient of Variation 17.9 % (11.5-14.5); RDW Standard Deviation 51.6 fL (36.4-46.3); Red Blood Count 4.95 M/uL (4.20-5.40); White Blood Count 17.66 K/ul (4.8-10.8)
[2023-10-25 12:34] LABS: Appearance Urine Clear (Clear); Bilirubin Urine Negative (Negative); Blood Urine Negative (Negative); Color Urine Yellow; Glucose Urine UA Negative (Negative); Ketones Urine Negative (Negative); Leukocyte Esterase Urine Negative (Negative); Nitrite Urine Negative (Negative); Protein Urine Negative (Negative); Specific Gravity Urine 1.009 (1.000-1.030); Urobilinogen Urine Negative (Negative); pH Urine 6.5 (4.5-7.5)
--- NOTE | 2023-10-25 12:45 | XRay Report ---
XR chest 1V portable CLINICAL HISTORY: Dyspnea. COMPARISON STUDY: Chest CT September 30, 2023. Chest radiograph October 08, 2023. FINDINGS: Low lung volumes are unchanged. There is no pneumothorax or pleural effusion. Lower lung in terstitial thickening is similar to prior exams. No consolidation is identified. Cardiomediastinal si lhouette is stable. Expansile right fourth rib lesion is unchanged. IMPRESSION: No acute cardiopulmonary findings. No significant change in appearance of the chest. Sta ble lower lung interstitial thickening, likely chronic. ACT 112: Negative or not required by law. Electronically signed by: Hipolito Sevilla M.D. 10/25/2023 12:43 PM
[2023-10-25 12:59] LABS: Albumin Globulin Ratio 1.3 (0.9-2); Albumin Level 3.7 gm/dl (3.4-5.0); BUN Creatinine Ratio 52.8 (10-20); Bilirubin,Total 0.3 mg/dl (0.2-1.0); Calcium 8.9 mg/dl (8.6-10.3); Creatinine Clr Calc Pharmacy 70.6 ml/min; Est GFR (African American) 80.5 ml/min; Est GFR (Non-African American) 69.5 ml/min; Globulin 2.8 gm/dl (2.5-4.0); Potassium 3.7 mmol/L (3.5-5.1); Total Protein 6.5 gm/dl (6.0-8.3)
[2023-10-25 13:14] LABS: Partial Thromboplastin Time 27 Seconds (21-31); Prothrombin Time 10.8 Seconds (9.0-12.0)
[2023-10-25 13:21] LABS: Adenovirus PCR Not Detected (NotDetected); Bordetella parapertussis PCR Not Detected (NotDetected); Bordetella pertussis PCR Not Detected (NotDetected); Chlamydia pneumoniae PCR Not Detected (NotDetected); Coronavirus 229E PCR Not Detected (NotDetected); Coronavirus CoV-2 (COVID19)PCR Not Detected (NotDetected); Coronavirus HKU1 PCR Not Detected (NotDetected); Coronavirus NL63 PCR Not Detected (NotDetected); Coronavirus OC43PCR Not Detected (NotDetected); Human Metapneumovirus PCR Not Detected (NotDetected); Influenza A PCR Not Detected (NotDetected); Influenza B PCR Not Detected (NotDetected); Mycoplasma pneumoniae PCR Not Detected (NotDetected); Parainfluenza Virus 1 PCR Not Detected (NotDetected); Parainfluenza Virus 2 PCR Not Detected (NotDetected); Parainfluenza Virus 3 PCR Not Detected (NotDetected); Parainfluenza Virus 4 PCR Not Detected (NotDetected); Respiratory Syncytial VirusPCR Not Detected (NotDetected); Rhinovirus/Enterovirus PCR Not Detected (NotDetected)
[2023-10-25] MEDS ORDERED: CARBOHYDRATES FOR HYPOGLYCEMIA PO PRN (13:54)
[2023-10-25] MEDS ORDERED: GLUCOSE 40% GEL 15 GM TUBE PO PRN (13:54)
[2023-10-25] MEDS ORDERED: ALUMINUM/MAGNESIUM SUSP 30 ML UDC PO PRN (13:54)
[2023-10-25] MEDS ORDERED: GLUCOSE 10 TAB/TUBE PO PRN (13:54)
[2023-10-25] MEDS ORDERED: DEXTROSE 50% 50 ML SYRINGE IV PRN (13:54)
[2023-10-25] MEDS ORDERED: GLUCAGON FOR INJ 1 MG VIAL SQ PRN (13:54)
[2023-10-25 14:01] LABS: Troponin I High Sensitivity 20.4 pg/ml (0-14)
--- NOTE | 2023-10-25 14:31 | Electrocardiogram Report ---
Test Reason : Blood Pressure : / mmHG Vent. Rate : 100 BPM Atrial Rate : 100 BPM P-R Int : 150 ms QRS Dur : 072 ms QT Int : 330 ms P-R-T Axes : 041 012 050 degrees QTc Int : 425 ms Normal sinus rhythm Possible Left atrial enlargement Inferior infarct (cited on or before 16-AUG-2023) Anterior infarct (cited on or before 28-JUL-2023) Abnormal ECG When compared with ECG of 08-OCT-2023 16:36, Questionable change in initial forces of Anterior leads Confirmed by Roel Willams ([id number]) on 10/25/2023 2:30:47 PM Referred By: Confirmed By:Roel Willams
--- NOTE | 2023-10-25 14:34 | History & Physical Report ---
Date of Service October 25, 2023 Assessment & Plan (1) Acute on chronic respiratory failure with hypoxia: Plan: acute on chronic respiratory failure with hypoxia , hypercapnia, started using CPAP at home Admit to [facility] telemetry on pulse oximetry. Currently stable on 3 L nasal cannula in mild respiratory distress but otherwise stable Will start treatment with the following 60 mg IV Solu-Medrol 3 times daily, every 24 hours azithromycin, scheduled ipratropium and levalbuterol nebulizer treatments, incentive spirometry, flutter therapy, scheduled guaifenesin As needed oxygen to keep SpO2 between 89 to 92% Continue to stress the importance of smoking cessation, reminded her of the FUM device that can be used to assist with her complete cessation Patient declines need for nicotine patches at this time Home Lovenox for DVT prophylaxis (2) CHF (congestive heart failure): Plan: probably has core pulmonale continue IV Bumex (3) Multiple myeloma: Plan: follow up with hem/onc as outpatient (4) Generalized anxiety disorder: Plan: Xanax PRN (5) Diabetes: Plan: continue Lantus sliding scale History of Present Illness Chief Complaint: SOB Primary Care Provider: Radha Barboza This is a 63-year-old female with a past medical history including severe COPD, chronic hypoxic respiratory failure using 3 LNC at bedtime, chronic ongoing tobacco use, opiate dependence on Suboxone, HFpEF, severe anxiety on chronic xanax, obesity hypoventilation syndrome, DMII, VTE on Lovenox, Multiple myeloma s/p Stem cell tx, and hypokalemia who presents to the ED on 09/30/2023 with a chief complaint of shortness of breath and legs swelling. She has been admitted now 10 times in the last 5 months and 12 times in the last 9 months all for SOB/COPD/CHF related hospitalizations. She was just discharged on 10/16 Patient reports that as soon as she got home yesterday, she noticed that her ankles were swollen and she started having shortness of breath. She took her usual Bumex, her usual nebulizers, she called her doctor office and tried to get an appointment, she was recommended to go to ER. CXR no pneumonia, she was hypoxic in ER , started on nebs, steroids, she requested Xanax with steroids. Denies fever, chills, takes meds as prescribed Allergies Allergy/AdvReac Type Severity Reaction Status Date / Time codeine Allergy Severe Anaphylaxis Verified 09/25/23 16:53 Iodinated Contrast Media Allergy Severe Anaphylaxis Verified 09/25/23 16:53 shellfish derived Allergy Severe Anaphylaxis Verified 09/25/23 16:53 tramadol Allergy Intermediate ITCHINESS Verified 09/25/23 16:53 iohexol Allergy Unknown CAN'T Verified 09/25/23 16:53 REMEMBER diphenhydramine AdvReac Severe Anxiety Verified 09/25/23 16:53 [From Benadryl] promethazine AdvReac Intermediate Anxiety Verified 09/25/23 16:53 Home Medications Medication Instructions Recorded Confirmed Type buprenorphine 8 mg-naloxone 2 mg 1 film sublingual QAM 05/14/22 10/08/23 History sublingual film nystatin 100,000 unit/gram topical 1 applic topical BID PRN UNDER 05/14/22 10/08/23 History powder BREASTS NEEDED. ondansetron HCl 4 mg tablet 4 mg PO Q8H PRN NAUSEA/VOMITING 05/14/22 10/08/23 History quetiapine 200 mg tablet 200 mg PO HS 05/14/22 10/08/23 History levalbuterol HCl 1.25 mg/3 mL 1.25 mg inhalation TID PRN 01/16/23 10/08/23 History solution for nebulization Shortness Of Breath Or Wheezing enoxaparin 150 mg/mL subcutaneous 150 mg subcut QAM 05/07/23 10/08/23 History syringe alprazolam 0.5 mg tablet 0.5 mg PO TID #14 tabs 08/02/23 10/08/23 Rx albuterol sulfate 90 mcg/actuation 2 puff inhalation UD PRN Shortness 08/30/23 10/08/23 History aerosol inhaler Of Breath Or Wheezing guaifenesin 600 mg tablet, 600 mg PO Q12 PRN Congestion 09/11/23 10/08/23 History extended release 12 hr (Mucinex) fluticasone propionate 50 1 spray intranasal BID nasal 09/15/23 10/08/23 Rx mcg/actuation nasal congestion #0 mL spray,suspension (Flonase Allergy Relief) fluticasone fur. 200 mcg-umeclid 1 ea inhalation QAM #60 ea 09/16/23 10/08/23 Rx 62.5 mcg-vilant 25 mcg inhalat.powder (Trelegy Ellipta) levalbuterol tartrate 45 2 puff inhalation Q4 PRN WHEEZE 09/16/23 10/08/23 Rx mcg/actuation aerosol inhaler #15 grams bumetanide 2 mg tablet 2 mg PO BID #60 tabs 09/29/23 10/08/23 Rx benzonatate 100 mg capsule 200 mg (2 x 100 mg) PO TID PRN 10/17/23 Rx cough #30 caps buprenorphine 8 mg-naloxone 2 mg 0.25 film sublingual QPM #30 ea 10/17/23 10/08/23 Rx sublingual film insulin aspart U-100 100 unit/mL See Rx Instructions .Route 10/17/23 10/08/23 Rx (3 mL) subcutaneous pen (Novolog .COMPLEX #15 mL FlexPen U-100 Insulin aspart) insulin glargine 100 unit/mL (3 68 unit (0.68 mL) subcut QAM #15 mL 10/17/23 10/08/23 Rx mL) subcutaneous pen ipratropium bromide 0.02 % 3 ml continuous nebulization QID 10/17/23 10/08/23 Rx solution for inhalation PRN shortness of breath #75 mL metolazone 5 mg tablet 2.5 mg (1/2 x 5 mg) PO 2XWK #12 10/17/23 10/08/23 Rx tabs montelukast 10 mg tablet 10 mg PO DAILY #30 tabs 10/17/23 Rx (Singulair) potassium chloride 20 mEq 40 meq (2 x 20 mEq) PO TID #180 10/17/23 Rx tablet,extended release(part/cryst) tabs prednisone 10 mg tablet 10 mg PO QAM #30 tabs 10/17/23 Rx Past Med/Surg History Problem List (Updated 10/09/23 @ 13:11 by Maurilio Herndon MD) Chronic hypoxic respiratory failure CHF (congestive heart failure) (Acute) Acute hypokalemia (Acute) Shortness of breath (Acute) Multiple myeloma Last chemotherapy 2016 Follows with medical oncology in [facility] Diabetes Hypokalemia Heart failure with preserved ejection fraction COPD (chronic obstructive pulmonary disease) (Acute) Shortness of breath (Acute) Generalized anxiety disorder Chronic respiratory failure with hypoxia and hypercapnia Tobacco abuse counseling Chronic hypercapnic respiratory failure Moderate persistent asthma Constipation History of pulmonary embolism Obesity hypoventilation syndrome Chronic anticoagulation Acute bronchitis Pulmonary vascular congestion Acute on chronic respiratory failure with hypoxia (Acute) Right knee pain Nasal fracture Rib fractures (Acute) COPD (chronic obstructive pulmonary disease) (Acute) Medical History Acute exacerbation of chronic obstructive pulmonary disease Heart failure with preserved ejection fraction Hypokalemia Tobacco abuse Opiate dependence Dyspnea Diabetes Multiple myeloma Last chemotherapy 2017 Follows with medical oncology in [facility] Acute heart failure with preserved ejection fraction (HFpEF) Asthma Surgical History No pertinent past surgical history Family History (Updated 09/30/23 @ 19:11 by Petra Chan MD) Sister Asthma Social History Smoking Status: Current every day smoker Tobacco Type: Cigarettes Cigarettes Per Day: 1 cigarette per day; Second Hand Exposure: No; Do You Dip or Chew Tobacco: No; Hx Alcohol Use: No Hx Substance Use: No Preferred Language: Macanese Communication Ability: Effective Geriatric Nursing Assistant Required: No Beliefs That Will Affect Care: None Current Living Situation: Family Current Living Situation Comment: lives with sister temporarily Feels Safe at Home: Yes Assistive Devices: BiPap and Oxygen - at Night Review of Systems Review of Systems: All systems reviewed & are unremarkable except as noted in Subjective Physical Exam Physical Exam: GENERAL: Patient is in mild respiratory distress. HEENT: No acute trauma, normocephalic atraumatic, mucous membranes moist, no nasal congestion. NECK: No stridor, no adenopathy, no meningismus, trachea is midline. LUNGS: Short of breath to just speak in longer sentences. Seems to have an increased respiratory rate. She has markedly diminished breath sounds bilaterally. HEART: Without murmurs gallops or rubs, mildly tachycardic with a regular rhythm. Heart tones are quite distant. ABDOMEN: Soft, nontender, no peritonitis. EXTREMITIES: No cyanosis, full range of motion of all the joints without pain or difficulty. Mild edema bilaterally. NEUROLOGIC: Oriented x 3, no acute motor or sensory deficits, no focal weakness. SKIN: No jaundice, no diaphoresis. Results & Data Results & Data Vital Signs (Past 12 Hours) Vital Signs Temp Pulse Resp BP Pulse Ox O2 Del Method 10/25/23 13:11 86 L Room Air 10/25/23 12:19 97 H 10/25/23 11:50 28 H 10/25/23 11:50 92 Room Air 10/25/23 11:50 Room Air 10/25/23 11:45 36.7 C 105 H 22 117/75 94 Room Air Laboratory Results Abnormal lab results 10/25/23 Range/Units 12:09 WBC 17.66 H (4.8-10.8) K/ul RDW Std Deviation 51.6 H (36.4-46.3) fL RDW Coeff of Malick 17.9 H (11.5-14.5) % Neut # (Auto) 14.56 H (1.40-6.50) K/uL Chloride 94 L (98-107) mmol/L Carbon Dioxide 33 H (21-32) mmol/L BUN 47 H (6-23) mg/dl BUN/Creatinine Ratio 52.8 H (10-20) Glucose 174 H (70-99(Fasting)) mg/dl Troponin I High Sens 20.4 H (0-14) pg/ml Diagnostic Findings Chest X-Ray 10/25/23 11:54 XR chest 1V portable CLINICAL HISTORY: Dyspnea. COMPARISON STUDY: Chest CT September 30, 2023. Chest radiograph October 08, 2023. FINDINGS: Low lung volumes are unchanged. There is no pneumothorax or pleural effusion. Lower lung interstitial thickening is similar to prior exams. No consolidation is identified. Cardiomediastinal silhouette is stable. Expansile right fourth rib lesion is unchanged. IMPRESSION: No acute cardiopulmonary findings. No significant change in appearance of the chest. Stable lower lung interstitial thickening, likely chronic. ACT 112: Negative or not required by law. Electronically signed by: Hipolito Sevilla M.D. 10/25/2023 12:43 PM Code Status & VTE Plan VTE Prophylaxis Plan VTE Prophylaxis will be ordered: Yes PG Care Time/CCT Total # of Minutes Spent Total Time Spent with Patient: Total time spent is greater than 50% in coordination of care (as documented) at patient's floor/unit and/or counseling patient: Coding Level of Care Code 91648 INT INP/OBS CARE 3/75MIN Diagnoses Acute on chronic respiratory failure with hypoxia J96.21 CHF (congestive heart failure) I50.9 Multiple myeloma C90.00 Multiple myeloma remission status: unspecified Generalized anxiety disorder F41.1 Type 2 diabetes mellitus without complication, with long-term current use of insulin E11.9; Z79.4 Diabetes mellitus type: type 2 Diabetes mellitus exterminator insulin use: with half-way use Diabetes mellitus complication status: without complication (3) Multiple myeloma Multiple myeloma remission status: unspecified Qualified Code(s): C90.00 - Multiple myeloma not having achieved remission (5) Diabetes Diabetes mellitus type: type 2 Diabetes mellitus exterminator insulin use: with exterminator use Diabetes mellitus complication status: without complication Qualified Code(s): E11.9 - Type 2 diabetes mellitus without complications; Z79.4 - exterminator (current) use of insulin
[2023-10-25] MEDS ORDERED: NYSTATIN POWDER 15GM BTL EXT PRN (15:33)
[2023-10-25] MEDS ORDERED: ALBUTEROL HFA 8 GM INHALER INH PRN (15:33)
[2023-10-25] MEDS ORDERED: BENZONATATE 100 MG CAPSULE PO PRN (15:33)
[2023-10-25] MEDS ORDERED: NON-FORMULARY MEDICATION (Insulin Aspart U-100 [Novolog Flexpen U-100 Insulin] 100 unit/mL SCH (15:33)
[2023-10-25] MEDS ORDERED: ONDANSETRON 4 MG OD TAB PO PRN (15:36)
[2023-10-25] MEDS: ALPRAZolam 0.25 MG TABLET PO PRN (15:38)
[2023-10-25] MEDS: POTASSIUM CHLORIDE CRTAB 20 MEQ TABCR PO SCH (17:20)
[2023-10-25] MEDS: BUMETANIDE 2 MG in SYRINGE 0 ML IV SCH (17:21)
[2023-10-25] MEDS: methylPREDNISolone 40 MG in SYRINGE 0 ML IV SCH (17:21)
[2023-10-25] MEDS: ALPRAZolam 0.5 MG TABLET PO SCH (17:21)
[2023-10-25] MEDS: INSULIN ASPART PER UNIT CHARGE SC SCH (17:35)
[2023-10-25] MEDS: INSULIN ASPART PER UNIT CHARGE SC STA (18:36)
[2023-10-25] MEDS: LEVALBUTEROL 1.25 MG/3 ML NEB INH PRN (19:16)
[2023-10-25] MEDS: FLUTICASONE PROPIONATE NA SPR 16 GM BTL NAE SCH (20:51)
[2023-10-25] MEDS: BUPRENORPHINE/NALOXONE 8/2 MG TAB SL SCH (20:52)
[2023-10-25] MEDS: QUEtiapine FUMARATE 200 MG TAB PO SCH (20:52)
--- NOTE | 2023-10-25 21:28 | Ultrasound Report ---
US venous doppler LE BI CLINICAL HISTORY: swelling TECHNIQUE: Bilateral lower extremity real-time compression venous ultrasound with Color Doppler imagi ng. Utilizing real-time ultrasonic imaging multiple real time high-resolution ultrasonic images with compression and noncompression maneuvers of the deep venous system in addition to color doppler imagi ng were performed from the common femoral vein through the proximal calf veins. COMPARISON: Comparison is made to a venous Doppler ultrasound 02/15/2023 FINDINGS/IMPRESSION: Currently there is normal compressibility of the deep venous system from the common femoral vein thro ugh the proximal calf veins. Lower extremity edema is seen limiting evaluation of calf vessels. ACT 112: Negative or not required by law. Electronically signed by: Raheem Macias M.D. 10/25/2023 9:26 PM
[2023-10-25] MEDS: methylPREDNISolone 20 MG in SYRINGE 0 ML IV SCH (21:42)
[2023-10-26 07:14] LABS: Basophils # (auto) 0.03 K/uL (0.00-0.20); Basophils % (auto) 0.2 %; Hematocrit (blood only) 42.2 % (37.0-47.0); Hemoglobin 13.7 g/dl (12.0-16.0); Immature Granulocytes # (auto) 0.18 K/uL (0.01-0.20); Immature Granulocytes % (auto) 1.1 %; Lymphocytes # (auto) 1.87 K/uL (1.20-3.40); Lymphocytes % (auto) 11.4 %; Mean Corpuscular Hgb Conc 32.5 g/dL (32.0-36.0); Mean Corpuscular Volume 83.1 fL (80.0-100.0); Mean Platelet Volume 10.1 fL (9.4-12.4); Monocytes # (auto) 0.28 K/uL (0.11-0.59); Monocytes % (auto) 1.7 %; Neutrophils # (auto) 14.06 K/uL (1.40-6.50); Neutrophils % (auto) 85.6 %; Platelet Count 263 K/uL (130-400); RDW Coefficient of Variation 17.5 % (11.5-14.5); RDW Standard Deviation 52.2 fL (36.4-46.3); Red Blood Count 5.08 M/uL (4.20-5.40); White Blood Count 16.42 K/ul (4.8-10.8)
[2023-10-26] MEDS: UMECLIDINIUM/VILANTEROL 62.5/25MCG 7 PUFFS/INHALER INH SCH (07:58)
[2023-10-26] MEDS: MONTELUKAST SODIUM 10 MG TABLET PO SCH (07:59)
[2023-10-26] MEDS: FLUTICASONE FUROATE 200MCG 14 PUFFS/INHALER INH SCH (08:00)
[2023-10-26] MEDS: ENOXAPARIN 150 MG/ML SYR SQ SCH (08:00)
[2023-10-26] MEDS: ONDANSETRON INJ 2 MG/ML 2 ML VIAL IV PRN (08:02)
[2023-10-26] MEDS: BUPRENORPHINE/NALOXONE 8/2 MG TAB SL SCH (08:06)
[2023-10-26] MEDS ORDERED: Nursing to Pharmacy Communication SCH (08:30)
[2023-10-26] MEDS: LANTUS PER UNIT CHARGE SQ SCH (08:53)
[2023-10-26] MEDS ORDERED: NON-FORMULARY MEDICATION (Fluticasone-Umeclidin-Vilanter [Trelegy Ellipta] 200-62.5-25 mcg INH SCH (09:00)
[2023-10-26 10:48] LABS: Calcium 9.1 mg/dl (8.6-10.3); Potassium 3.7 mmol/L (3.5-5.1)
[2023-10-26 10:54] LABS: BUN Creatinine Ratio 46.1 (10-20); Creatinine Clr Calc Pharmacy 70.6 ml/min; Est GFR (African American) 80.5 ml/min; Est GFR (Non-African American) 69.5 ml/min
[2023-10-26] MEDS: ALPRAZolam 0.5 MG TABLET PO SCH (11:50)
[2023-10-26] MEDS: SOD PHOSPHATE/SOD BIPHOSPHATE ENEMA 132 ML BTL PR ONE (11:50)
[2023-10-26] MEDS: SOD PHOSPHATE/SOD BIPHOSPHATE ENEMA 132 ML BTL PR STA (11:50)
--- NOTE | 2023-10-26 19:08 | Hospitalist Progress Note ---
Date of Service October 26, 2023 Assessment & Plan (1) Acute on chronic respiratory failure with hypoxia: Plan: Was briefly hypoxic in ER on admission and placed on 3LNC, now weaned off. Likely secondary to CHF exacerbation plus COPD exacerbation CXR negative Now stable on room air after IV steroids and nebs, IV Bumex Dc IV steroids and revert to home dose of prednisone 10mg po daily as I believe this was more likely from CHF Continue maintenance inhalers and nebs prn Giving IV diuresis Continue BiPAP hs (2) Heart failure with preserved ejection fraction: Plan: With acute on chronic HFpEF, secondary to salt indiscretion Received 3 doses of IV Bumex 2mg and now give an extra 2mg IV for ankle edema, weight gain Revert to home po Bumex tomorrow and metolazone 2.5mg Thu and -missed today's dose so will give on Thursday Follow BMP, mag, replace lytes as needed Change to low sodium diet, fluid restrict to 1800mL, advised daily weights at home (3) COPD (chronic obstructive pulmonary disease): Plan: As above (4) Diabetes: Plan: continue Lantus and sliding scale stopping IV steroids (5) Generalized anxiety disorder: Plan: Xanax PRN declines SSRI (6) Multiple myeloma: Plan: follow up with hem/onc as outpatient continue Suboxone for chronic pain but weaning down-should be down to 8mg daily now (7) Hypokalemia: Plan: replace with KCl 40 meq po tid (8) Leukocytosis: Plan: presents, persistent, question if related to MM? Also on steroids frequently follow CBC and f/u with Heme as outpt (9) History of pulmonary embolism: Plan: Continue daily Lovenox Plan Dispo-continued stay Admission and Anticipated Discharge Date Admission Date: October 25, 2023 Subjective Still reports SOB with exertion but was walking around the halls when I saw her. Admits to eating chicken broth at home and her scale needs a new battery. She only smoked a puff of a cigarette. Tele with NSR, ST rates 90-100s Results & Data Results & Data Vital Signs (Past 12 Hours) Vital Signs Temp Pulse Pulse Resp BP Pulse Ox O2 Del Method 10/26/23 16:13 96 H 10/26/23 11:13 36.6 C 93 H 16 114/69 92 Room Air 10/26/23 10:23 Room Air, CPAP 10/26/23 07:24 36.5 C 64 18 122/74 93 Room Air 10/26/23 07:16 87 16 91 Room Air Laboratory Results CBC, BMP, troponin reviewed PG Care Time/CCT Total # of Minutes Spent Total Time Spent with Patient: Total time spent is greater than 50% in coordination of care (as documented) at patient's floor/unit and/or counseling patient: Coding Level of Care Code 82522 SUB INP/OBS CARE 3/50MIN Diagnoses Acute on chronic respiratory failure with hypoxia J96.21 Chronic heart failure with preserved ejection fraction I50.32 Heart failure chronicity: chronic COPD (chronic obstructive pulmonary disease) J44.9 COPD type: unspecified COPD Type 2 diabetes mellitus without complication, with long-term current use of insulin E11.9; Z79.4 Diabetes mellitus complication status: without complication Diabetes mellitus jail insulin use: with jail use Diabetes mellitus type: type 2 Generalized anxiety disorder F41.1 Multiple myeloma C90.00 Multiple myeloma remission status: unspecified Hypokalemia E87.6 Leukocytosis D72.829 Leukocytosis type: unspecified History of pulmonary embolism Z86.711 (2) Heart failure with preserved ejection fraction Heart failure chronicity: chronic Qualified Code(s): I50.32 - Chronic diastolic (congestive) heart failure (3) COPD (chronic obstructive pulmonary disease) COPD type: unspecified COPD Qualified Code(s): J44.9 - Chronic obstructive pulmonary disease, unspecified (4) Diabetes Diabetes mellitus complication status: without complication Diabetes mellitus extermination supervisor insulin use: with jail use Diabetes mellitus type: type 2 Qualified Code(s): E11.9 - Type 2 diabetes mellitus without complications; Z79.4 - extermination supervisor (current) use of insulin (6) Multiple myeloma Multiple myeloma remission status: unspecified Qualified Code(s): C90.00 - Multiple myeloma not having achieved remission (8) Leukocytosis Leukocytosis type: unspecified Qualified Code(s): D72.829 - Elevated white blood cell count, unspecified
[2023-10-26] MEDS: BENZONATATE 100 MG CAPSULE PO SCH (20:57)
[2023-10-26] MEDS: BUMETANIDE 2 MG in SYRINGE 0 ML IV ONE (21:01)
[2023-10-26] MEDS: guaiFENesin 600 MG TABCR PO PRN (22:15)
[2023-10-27] MEDS: IBUPROFEN 600 MG TAB PO ONE (03:41)
[2023-10-27] MEDS: BUMETANIDE 1 MG TAB PO SCH (08:19)
[2023-10-27] MEDS: predniSONE 10 MG TABLET PO SCH (08:23)
[2023-10-27] MEDS: metOLazone 2.5 MG TABLET PO SCH (08:23)
[2023-10-27 09:24] LABS: BUN Creatinine Ratio 44.5 (10-20); Calcium 8.6 mg/dl (8.6-10.3); Creatinine Clr Calc Pharmacy 57.1 ml/min; Est GFR (African American) 62.3 ml/min; Est GFR (Non-African American) 53.8 ml/min; Magnesium 2.1 mg/dl (1.7-2.4); Potassium 4.4 mmol/L (3.5-5.1)
--- NOTE | 2023-10-27 10:33 | XRay Report ---
XR knee LT 1 or 2V routine CLINICAL HISTORY: Severe left knee pain. COMPARISON: None FINDINGS: Alignment of the left knee is anatomic. There is no fracture. No suspicious osseous lesion s are present. There is a tiny bone within the proximal left tibia. There is a small joint effusion. Joint spaces are preserved. IMPRESSION: 1. No fractures within the left knee. 2. Small left knee joint effusion. 2. Preserved joint spaces. ACT 112: Negative or not required by law. Electronically signed by: Hipolito Sevilla M.D. 10/27/2023 10:32 AM
--- NOTE | 2023-10-27 11:23 | XRay Report ---
XR knee RT 1 or 2V routine CLINICAL HISTORY: severe knee pain TECHNIQUE: 2 views of the right knee were obtained. Comparison: Comparison is made to right knee radiographs 06/25/2022 FINDINGS: There is no evidence of an acute fracture. Degenerative changes are seen in the knee joint. No joint effusion is seen. A fabella is incidentally seen. IMPRESSION: Degenerative changes without evidence of acute injury. ACT 112: Negative or not required by law. Electronically signed by: Raheem Macias M.D. 10/27/2023 11:21 AM
--- NOTE | 2023-10-27 12:52 | Hospitalist Progress Note ---
Date of Service October 27, 2023 Assessment & Plan (1) Acute on chronic respiratory failure with hypoxia: Plan: Was briefly hypoxic in ER on admission and placed on 3LNC, now weaned off. Likely secondary to CHF exacerbation plus COPD exacerbation CXR negative Now stable on room air after IV steroids and nebs, IV Bumex Converted IV steroids to home dose of prednisone 10mg po daily as I believe this was more likely from CHF and try not to give high doses of steroids at this point as she has been on them for so long and they cause her hyperglycemia Continue maintenance inhalers and nebs prn Giving IV diuresis Continue BiPAP hs (2) Heart failure with preserved ejection fraction: Plan: With acute on chronic HFpEF, secondary to salt indiscretion and drinking large volumes of lemonade due to thirst from heat Received for doses of IV Bumex 2mg on admission and then converted to p.o. Bumex along with metolazone on 10/26, however with ongoing significant peripheral edema- give another dose of Bumex 2 mg IV x 1 now Continue home po Bumex 2 Mg p.o. twice daily tomorrow and metolazone 2.5mg Thu and Follow BMP, mag, replace lytes as needed Continue low sodium diet, fluid restrict to 1800mL, advised daily weights at home and fluid restriction at home which she is hesitant to do (3) Gout: Plan: Presented with acute bilateral knee pain, erythema, warmth, and edema in the middle of the night on 10/25 She is high risk for gout given history of diabetes and is on diuretics. There is also a family history of such. Pain did not improve with Tylenol. X-rays show degenerative changes and small effusion but no fractures Start IV Toradol and give colchicine 1.2 mg p.o. x 1 Checked uric acid level-significantly elevated at 10.9 (4) COPD (chronic obstructive pulmonary disease): Plan: As above (5) Diabetes: Plan: continue Lantus and sliding scale (6) Generalized anxiety disorder: Plan: Xanax PRN declines SSRI (7) Multiple myeloma: Plan: follow up with hem/onc as outpatient continue Suboxone for chronic pain but weaning down-should be down to 8mg daily now-will discuss with her once knee pain is improved (8) Hypokalemia: Plan: Continue to replace with KCl 40 meq po tid (9) Leukocytosis: Plan: presents, persistent, question if related to MM? Also on steroids frequently follow CBC and f/u with Heme as outpt (10) History of pulmonary embolism: Plan: Continue daily Lovenox Plan Dispo-continued stay Admission and Anticipated Discharge Date Admission Date: October 25, 2023 Subjective Patient had acute onset of bilateral severe knee pain in the middle of the night. She now reports swelling and redness of both knees with ongoing severe pain that did not improve with Tylenol this morning. Otherwise she has been so distracted by her severe knee pain that she has not been paying attention to her shortness of breath but after asked about it, reports that she cannot get a deep breath and feels like she needs to cough things out but they will not come out. Continues to have significant swelling of the legs and ankles and feet. Patient also reports she really hates the fluid restriction and does admit to drinking large volumes of lemonade at home in addition to the canned soup. Telemetry with normal sinus rhythm and PVCs with rates in the 90s to 100s Physical Exam Constitutional: WD/WN, vitals as above Respiratory: normal respiratory effort; no cough Auscultation: + wheezes; no crackles and no rhonchi Cardiovascular: Rate/Rhythm: regular rate and regular rhythm Heart Sounds: no murmur Extremities: + edema (2+ pitting edema of the legs and feet/ankles bilaterally) Musculoskeletal: Extremities: + extremities abnormal to inspection (Bilateral knees with small effusion, painful range of motion and erythema) Results & Data Results & Data Vital Signs (Past 12 Hours) Vital Signs Temp Pulse Pulse Resp BP BP Pulse Ox 10/27/23 11:42 36.6 C 100 H 22 126/74 94 10/27/23 07:59 36.4 C L 97 H 20 131/73 97 10/27/23 07:43 91 H 18 91 10/27/23 07:35 87 10/27/23 03:24 36.7 C 88 18 121/78 98 O2 Del Method O2 Flow Rate 10/27/23 11:42 Room Air 10/27/23 07:59 Room Air 10/27/23 07:43 Room Air 10/27/23 07:35 10/27/23 03:24 Nasal Cannula 3 Laboratory Results BMP, magnesium, and uric acid level reviewed Diagnostic Findings Knee x-rays bilaterally reviewed PG Care Time/CCT Total # of Minutes Spent Total Time Spent with Patient: Total time spent is greater than 50% in coordination of care (as documented) at patient's floor/unit and/or counseling patient: Coding Level of Care Code 58901 SUB INP/OBS CARE 3/50MIN Diagnoses Acute on chronic respiratory failure with hypoxia J96.21 Chronic heart failure with preserved ejection fraction I50.32 Heart failure chronicity: chronic Gout M10.9 COPD (chronic obstructive pulmonary disease) J44.9 COPD type: unspecified COPD Type 2 diabetes mellitus without complication, with long-term current use of insulin E11.9; Z79.4 Diabetes mellitus complication status: without complication Diabetes mellitus superintendent terminal insulin use: with [facility] use Diabetes mellitus type: type 2 Generalized anxiety disorder F41.1 Multiple myeloma C90.00 Multiple myeloma remission status: unspecified Hypokalemia E87.6 Leukocytosis D72.829 Leukocytosis type: unspecified History of pulmonary embolism Z86.711 (2) Heart failure with preserved ejection fraction Heart failure chronicity: chronic Qualified Code(s): I50.32 - Chronic diastolic (congestive) heart failure (4) COPD (chronic obstructive pulmonary disease) COPD type: unspecified COPD Qualified Code(s): J44.9 - Chronic obstructive pulmonary disease, unspecified (5) Diabetes Diabetes mellitus complication status: without complication Diabetes mellitus [facility] insulin use: with [facility] use Diabetes mellitus type: type 2 Qualified Code(s): E11.9 - Type 2 diabetes mellitus without complications; Z79.4 - technician terminal and repeater (current) use of insulin (7) Multiple myeloma Multiple myeloma remission status: unspecified Qualified Code(s): C90.00 - Multiple myeloma not having achieved remission (9) Leukocytosis Leukocytosis type: unspecified Qualified Code(s): D72.829 - Elevated white blood cell count, unspecified
[2023-10-27] MEDS: KETOROLAC 30 MG/ML VIAL IV ONE (13:47)
[2023-10-27] MEDS: BUMETANIDE 2 MG in SYRINGE 0 ML IV ONE (15:12)
[2023-10-27] MEDS: SOD PHOSPHATE/SOD BIPHOSPHATE ENEMA 132 ML BTL PR PRN (15:56)
[2023-10-27] MEDS: COLCHICINE 0.6 MG TAB PO ONE (16:43)
[2023-10-27] MEDS: KETOROLAC TROMETHAMINE 15 MG/ML VIAL IV PRN (20:28)
[2023-10-28] MEDS: IBUPROFEN 600 MG TAB PO ONE (01:21)
[2023-10-28] MEDS: ACETAMINOPHEN 325 MG TAB PO PRN (01:22)
[2023-10-28 07:57] LABS: Basophils # (auto) 0.03 K/uL (0.00-0.20); Basophils % (auto) 0.2 %; Eosinophils # (auto) 0.25 K/uL (0.00-0.50); Eosinophils % (auto) 1.9 %; Hematocrit (blood only) 44.5 % (37.0-47.0); Hemoglobin 14.3 g/dl (12.0-16.0); Immature Granulocytes # (auto) 0.13 K/uL (0.01-0.20); Lymphocytes # (auto) 3.82 K/uL (1.20-3.40); Lymphocytes % (auto) 28.3 %; Mean Corpuscular Hemoglobin 26.6 pg (25.0-34.0); Mean Corpuscular Hgb Conc 32.1 g/dL (32.0-36.0); Mean Corpuscular Volume 82.7 fL (80.0-100.0); Mean Platelet Volume 9.8 fL (9.4-12.4); Monocytes # (auto) 0.57 K/uL (0.11-0.59); Monocytes % (auto) 4.2 %; Neutrophils # (auto) 8.69 K/uL (1.40-6.50); Neutrophils % (auto) 64.4 %; Platelet Count 274 K/uL (130-400); RDW Coefficient of Variation 18.1 % (11.5-14.5); RDW Standard Deviation 52.9 fL (36.4-46.3); Red Blood Count 5.38 M/uL (4.20-5.40); White Blood Count 13.49 K/ul (4.8-10.8)
[2023-10-28 08:17] LABS: Blood Urea Nitrogen 69 mg/dl (6-23)
[2023-10-28 08:18] LABS: Anion Gap 12 (3-11); BUN Creatinine Ratio 53.9 (10-20); Calcium 8.8 mg/dl (8.6-10.3); Carbon Dioxide 33 mmol/L (21-32); Chloride 95 mmol/L (98-107); Creatinine Clr Calc Pharmacy 49.1 ml/min; Est GFR (African American) 51.9 ml/min; Est GFR (Non-African American) 44.8 ml/min; Glucose 93 mg/dl (70-99(Fasting)); Magnesium 2.3 mg/dl (1.7-2.4); Sodium 140 mmol/L (136-145)
--- NOTE | 2023-10-28 18:03 | Hospitalist Progress Note ---
Date of Service October 28, 2023 Assessment & Plan (1) Acute on chronic respiratory failure with hypoxia: Plan: Was briefly hypoxic in ER on admission and placed on 3LNC, now weaned off. Likely secondary to CHF exacerbation plus COPD exacerbation CXR negative Now stable on room air after IV steroids and nebs, IV Bumex Converted IV steroids to home dose of prednisone 10mg po daily as I believe this was more likely from CHF and try not to give high doses of steroids at this point as she has been on them for so long and they cause her hyperglycemia Continue maintenance inhalers and nebs prn Ongoing diuresis Continue BiPAP hs-she has been refusing to wear it the last few nights for various reasons (2) Heart failure with preserved ejection fraction: Plan: With acute on chronic HFpEF, secondary to salt indiscretion with eating canned soup frequently and drinking large volumes of lemonade Received several doses of IV Bumex 2mg and now back on po Bumex 2mg bid and metolazone 2x/week Add TIGRE hose for component of venous stasis Follow BMP, mag, replace lytes as needed Continue low sodium diet, fluid restrict to 1800mL, advised daily weights at home and fluid restriction at home which she is hesitant to do (3) Gout: Plan: Presented with acute bilateral knee pain, erythema, warmth, and edema in the middle of the night on 10/25 She is high risk for gout given history of diabetes and is on diuretics. There is also a family history of such. Pain did not improve with Tylenol. X-rays show degenerative changes and small effusion but no fractures Uric acid level elevated at 10.9 Did not improve with IV Toradol, but is improved with colchicine 1.2 mg p.o. x 1---> continue colchicine 0.6mg po bid x 2-3 more days Give an extra dose of prednisone 20mg x 1 now, then continue usual 10mg daily dose Add on ibuprofen 600mg po tid scheduled dc toradol (4) COPD (chronic obstructive pulmonary disease): Plan: As above (5) Diabetes: Plan: continue Lantus and sliding scale (6) Generalized anxiety disorder: Plan: Xanax PRN declines SSRI (7) Multiple myeloma: Plan: follow up with hem/onc as outpatient continue Suboxone for chronic pain but weaning down-should be down to 8mg daily now-will discuss with her once knee pain is improved (8) Hypokalemia: Plan: Continue to replace with KCl 40 meq po tid (9) Leukocytosis: Plan: presents, persistent, question if related to MM? Also on steroids frequently follow CBC and f/u with Heme as outpt (10) History of pulmonary embolism: Plan: Continue daily Lovenox Plan Constipation-continue Fleets enema daily prn, add on fiber like she takes at home Dispo-continued stay Admission and Anticipated Discharge Date Admission Date: October 25, 2023 Subjective Knee pain was again severe overnight but is improved today. She is anxious about it worsening again overnight. She is also already almost at her fluid limit for the day and it's not even dinner time yet. Legs and feet still swollen. Still feels SOB. Tele with NSR rates 90s Physical Exam Constitutional: WD/WN, vitals as above Respiratory: normal respiratory effort, lungs clear to auscultation Cardiovascular: Rate/Rhythm: regular rate and regular rhythm Heart Sounds: no murmur Extremities: + edema (2+ pitting edema of the legs and feet/ankles bilaterally) Musculoskeletal: Extremities: + extremities abnormal to inspection (Bilateral knees with much less erythema and effusion,no TTP) Results & Data Results & Data Vital Signs (Past 12 Hours) Vital Signs Temp Pulse Pulse Resp BP Pulse Ox O2 Del Method 10/28/23 15:38 90 10/28/23 15:19 36.3 C L 99 H 18 116/87 94 Room Air 10/28/23 11:24 36.4 C L 95 H 18 113/77 93 Room Air 10/28/23 11:21 Room Air 10/28/23 10:05 93 H 10/28/23 07:58 36.3 C L 58 L 18 114/76 95 Room Air 10/28/23 07:40 93 H 18 90 Room Air Laboratory Results CBC, BMP, magnesium reviewed PG Care Time/CCT Total # of Minutes Spent Total Time Spent with Patient: Total time spent is greater than 50% in coordination of care (as documented) at patient's floor/unit and/or counseling patient: Coding Level of Care Code 66698 SUB INP/OBS CARE 2/35MIN Diagnoses Acute on chronic respiratory failure with hypoxia J96.21 Chronic heart failure with preserved ejection fraction I50.32 Heart failure chronicity: chronic Gout M10.9 COPD (chronic obstructive pulmonary disease) J44.9 COPD type: unspecified COPD Type 2 diabetes mellitus without complication, with long-term current use of insulin E11.9; Z79.4 Diabetes mellitus complication status: without complication 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: with nursing home use Diabetes mellitus type: type 2 Generalized anxiety disorder F41.1 Multiple myeloma C90.00 Multiple myeloma remission status: unspecified Hypokalemia E87.6 Leukocytosis D72.829 Leukocytosis type: unspecified History of pulmonary embolism Z86.711 (2) Heart failure with preserved ejection fraction Heart failure chronicity: chronic Qualified Code(s): I50.32 - Chronic diastolic (congestive) heart failure (4) COPD (chronic obstructive pulmonary disease) COPD type: unspecified COPD Qualified Code(s): J44.9 - Chronic obstructive pulmonary disease, unspecified (5) Diabetes Diabetes mellitus complication status: without complication Diabetes mellitus nursing home insulin use: with adjunct faculty for medical terminology use Diabetes mellitus type: type 2 Qualified Code(s): E11.9 - Type 2 diabetes mellitus without complications; 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
[2023-10-28] MEDS: predniSONE 20 MG TAB PO STA (18:41)
[2023-10-28] MEDS: COLCHICINE 0.6 MG TAB PO SCH (18:42)
[2023-10-28] MEDS: CALCIUM POLYCARBOPHIL 625MG TAB PO SCH (18:42)
[2023-10-28] MEDS: IBUPROFEN 600 MG TAB PO SCH (20:18)
[2023-10-29 07:36] LABS: BUN Creatinine Ratio 67.1 (10-20); Calcium 8.6 mg/dl (8.6-10.3); Creatinine Clr Calc Pharmacy 72.9 ml/min; Est GFR (African American) 85.1 ml/min; Est GFR (Non-African American) 73.4 ml/min; Magnesium 2.1 mg/dl (1.7-2.4); Potassium 3.6 mmol/L (3.5-5.1)
--- NOTE | 2023-10-29 13:10 | Hospitalist Progress Note ---
Date of Service October 29, 2023 Assessment & Plan (1) Acute on chronic respiratory failure with hypoxia: Plan: Was briefly hypoxic in ER on admission and placed on 3LNC, now weaned off. Likely secondary to CHF exacerbation plus COPD exacerbation CXR negative Now stable for many days on room air after 1 dose of IV steroids and nebs, IV Bumex Converted IV steroids to home dose of prednisone 10mg po daily as I believe this was more likely from CHF and try not to give high doses of steroids at this point as she has been on them for so long and they cause her hyperglycemia Continue maintenance inhalers and nebs prn Continue BiPAP hs-she has been refusing to wear it the last few nights for various reasons-has a Trilogy machine at home (2) Heart failure with preserved ejection fraction: Plan: With acute on chronic HFpEF, secondary to salt indiscretion with eating canned soup frequently and drinking large volumes of lemonade . Reports she drinks fluids all day and all night when she wakes up frequently Received several doses of IV Bumex 2mg and now back on po Bumex 2mg bid and metolazone 2x/week-Mon/Thu Added TIGRE hose for component of venous stasis and advised to wear at home during day but she does c/o being too hot to wear them Follow BMP, mag, replace lytes as needed Continue low sodium diet, fluid restrict to 1800mL, advised daily weights at home and fluid restriction at home which she is hesitant to do Weight down, edema improving (3) Gout: Plan: Presented with acute bilateral knee pain, erythema, warmth, and edema in the middle of the night on 10/25 She is high risk for gout given history of diabetes and is on diuretics. There is also a family history of such. Pain did not improve with Tylenol. X-rays show degenerative changes and small effusion but no fractures Uric acid level elevated at 10.9 Did not improve with IV Toradol, but is now much improved with colchicine 1.2 mg p.o. x 1-and will continue ongoing colchicine 0.6mg po bid x 1 more days-will give prn colchicine for at home use Pt requesting allopurinol prophylaxis-start 100mg daily, follow uric acid levels as outpt Give an extra dose of prednisone 20mg on 10/27, and continue usual 10mg daily dose Continue on ibuprofen 600mg po tid scheduled for now (4) COPD (chronic obstructive pulmonary disease): Plan: As above (5) Diabetes: Plan: continue Lantus and sliding scale (6) Generalized anxiety disorder: Plan: Xanax PRN declines SSRI (7) Multiple myeloma: Plan: follow up with hem/onc as outpatient continue Suboxone for chronic pain but weaning down-should be down to 8mg daily now but she declines to go down at this time due to pain in knees and fear it will worsen (8) Hypokalemia: Plan: Continue to replace with KCl 40 meq po tid (9) Leukocytosis: Plan: presents, persistent, question if related to MM? Also on steroids frequently follow CBC and f/u with Heme as outpt (10) History of pulmonary embolism: Plan: Continue daily Lovenox Plan Constipation-continue Fleets enema daily prn, continue on fiber like she takes at home Dispo-continued stay but possible dc to home tomorrow Admission and Anticipated Discharge Date Admission Date: October 25, 2023 Subjective Pt reports a better night, minimal pain in bilat knees, able to ambulate halls frequently today. Still asking for fluid restriction to be lifted. Does not feel ready to continue weaning down on Suboxone. Does not feel ready for discharge yet but maybe tomorrow Wearing TIGRE hose Tele with NSR normal rates Physical Exam Constitutional: WD/WN, vitals as above Respiratory: normal respiratory effort, lungs clear to auscultation Cardiovascular: Rate/Rhythm: regular rate and regular rhythm Heart Sounds: no murmur Extremities: + edema (1+ pitting edema of the legs and feet/ankles bilaterally,improved,TEDs on) Musculoskeletal: Extremities: + extremities abnormal to inspection (Bilateral knees with much less erythema and effusion,no TTP) Results & Data Results & Data Vital Signs (Past 12 Hours) Vital Signs Temp Pulse Pulse Resp BP Pulse Ox O2 Del Method 10/29/23 11:49 36.7 C 93 H 20 125/88 97 Room Air 10/29/23 07:40 Room Air 10/29/23 07:28 36.6 C 88 20 127/86 98 Room Air 10/29/23 07:13 86 16 94 Room Air 10/29/23 07:00 103 H 10/29/23 03:44 Room Air 10/29/23 03:21 36.5 C 103 H 20 152/87 H 97 Room Air Laboratory Results BMP, magnesium reviewed PG Care Time/CCT Total # of Minutes Spent Total Time Spent with Patient: Total time spent is greater than 50% in coordination of care (as documented) at patient's floor/unit and/or counseling patient: Coding Level of Care Code 65724 SUB INP/OBS CARE 2/35MIN Diagnoses Acute on chronic respiratory failure with hypoxia J96.21 Chronic heart failure with preserved ejection fraction I50.32 Heart failure chronicity: chronic Gout M10.9 COPD (chronic obstructive pulmonary disease) J44.9 COPD type: unspecified COPD Type 2 diabetes mellitus without complication, with long-term current use of insulin E11.9; Z79.4 Diabetes mellitus type: type 2 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: with 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 clerk use Diabetes mellitus complication status: without complication Generalized anxiety disorder F41.1 Multiple myeloma C90.00 Multiple myeloma remission status: unspecified Hypokalemia E87.6 Leukocytosis D72.829 Leukocytosis type: unspecified History of pulmonary embolism Z86.711 (2) Heart failure with preserved ejection fraction Heart failure chronicity: chronic Qualified Code(s): I50.32 - Chronic diastolic (congestive) heart failure (4) COPD (chronic obstructive pulmonary disease) COPD type: unspecified COPD Qualified Code(s): J44.9 - Chronic obstructive pulmonary disease, unspecified (5) Diabetes Diabetes mellitus type: type 2 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: with termination clerk use Diabetes mellitus complication status: without complication Qualified Code(s): E11.9 - Type 2 diabetes mellitus without complications; 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
[2023-10-29] MEDS: allopurinoL 100 MG TAB PO SCH (14:18)
[2023-10-30] MEDS: ACETAMINOPHEN 1,000 MG/100 ML VIAL IV STA (00:56)
[2023-10-30 07:27] LABS: BUN Creatinine Ratio 42.9 (10-20); Calcium 8.2 mg/dl (8.6-10.3); Creatinine Clr Calc Pharmacy 55.4 ml/min; Est GFR (Non-African American) 52.6 ml/min; Potassium 3.4 mmol/L (3.5-5.1)
[2023-10-30 08:08] VITALS: O2SAT 98
[2023-10-30 08:14] VITALS: BP 126/88; PULSE 85; RESP 20; TEMP 97.5
--- NOTE | 2023-10-30 10:43 | Discharge Summary ---
Discharge Summary Date of Service October 30, 2023 Principal Dx & Hospital Course #1 = Principal Diagnosis (1) Acute on chronic respiratory failure with hypoxia: Was briefly hypoxic in ER on admission and placed on 3LNC, now weaned off. Likely secondary to CHF exacerbation plus COPD exacerbation CXR negative Now stable for many days on room air after 1 dose of IV steroids and nebs, IV Bumex Converted IV steroids to home dose of prednisone 10mg po daily I believe this was more likely from CHF but also could be from COPD as she continues to go home and smoke cigarettes daily albeit one puff a day now Continue maintenance inhalers and nebs prn Continue BiPAP hs-she has been refusing to wear it the last few nights for various reasons-has a Trilogy machine at home (2) Heart failure with preserved ejection fraction: With acute on chronic HFpEF, secondary to salt indiscretion with eating canned soup frequently and drinking large volumes of lemonade . Reports she drinks fluids all day and all night when she wakes up frequently Received several doses of IV Bumex 2mg and now back on po Bumex 2mg bid and metolazone 2x/week-Mon/Thu Added TIGRE hose for component of venous stasis and advised to wear at home during day but she does c/o being too hot to wear them Follow BMP as outpt Continue low sodium diet, fluid restrict to 1800mL, advised daily weights at home and fluid restriction at home which she is hesitant to do Weight down, edema improving (3) Gout: Presented with acute bilateral knee pain, erythema, warmth, and edema in the middle of the night on 10/25 She is high risk for gout given history of diabetes and is on diuretics. There is also a family history of such. Pain did not improve with Tylenol. X-rays show degenerative changes and small effusion but no fractures Uric acid level elevated at 10.9 Did not improve with IV Toradol, but is now much improved with colchicine 1.2 mg p.o. x 1-and will continue ongoing colchicine 0.6mg po bid x 1 more day-will give prn colchicine for at home use Pt requesting allopurinol prophylaxis-started 100mg daily, follow uric acid levels as outpt and increase as needed for goal of uric acid< 8 Continue prednisone 20mg daily x 5 more days and then continue usual 10mg daily dose Continue on ibuprofen 600mg po tid prn (4) COPD (chronic obstructive pulmonary disease): As above (5) Diabetes: continue Lantus and sliding scale at home she is considering getting back on Ozempic as outpt (6) Generalized anxiety disorder: Xanax PRN declines SSRI but is contemplating this now as she realizes her anxiety plays a large role in her perceived illness (7) Multiple myeloma: follow up with hem/onc as outpatient continue Suboxone for chronic pain but weaning down-should be down to 8mg daily now but she declines to go down at this time due to pain in knees and fear it will worsen-she will go down to 8mg daily on Thursday11/01/23 (8) Hypokalemia: Continue to replace with KCl 40 meq po tid (9) Leukocytosis: presents, persistent, question if related to MM? Also on steroids frequently follow CBC and f/u with Heme as outpt (10) History of pulmonary embolism: Continue daily Lovenox Plan Constipation- Fleets enema daily prn, continue on fiber like she takes at home Dispo-dc to home today. Would ask that her PCP office try to see her frequently , perhaps once weekly if needed to have her avoid coming to the hospital for issues that can easily be managed as an outpatient. Notes For Next Care Provider Would ask that her PCP office try to see her frequently , perhaps once weekly if needed to have her avoid coming to the hospital for issues that can easily be managed as an outpatient. Check BMP and uric acid level in 1 week and up titrate allopurinol for goal uric acid<8 Consider starting SSRI as outpt Consider starting Ozempic as outpt Medication Changes From Visit Added allopurinol 100mg po daily Take prednisone 20mg daily x 5 days then down to 10mg daily Added colchicine 0.6mg po bid to be taken x 1 more day and then as needed for gout Added motrin 600mg po tid prn gout pain Added fiber 625mg po daily Admission HPI Per Admitting Provider This is a 63-year-old female with a past medical history including severe COPD, chronic hypoxic respiratory failure using 3 LNC at bedtime, chronic ongoing tobacco use, opiate dependence on Suboxone, HFpEF, severe anxiety on chronic xanax, obesity hypoventilation syndrome, DMII, VTE on Lovenox, Multiple myeloma s/p Stem cell tx, and hypokalemia who presents to the ED on 09/30/2023 with a chief complaint of shortness of breath and legs swelling. She has been admitted now 10 times in the last 5 months and 12 times in the last 9 months all for SOB/COPD/CHF related hospitalizations. She was just discharged on 10/16 Patient reports that as soon as she got home yesterday, she noticed that her ankles were swollen and she started having shortness of breath. She took her usual Bumex, her usual nebulizers, she called her doctor office and tried to get an appointment, she was recommended to go to ER. CXR no pneumonia, she was hypoxic in ER , started on nebs, steroids, she requested Xanax with steroids. Denies fever, chills, takes meds as prescribed Discharge Exam Constitutional WD/WN, vitals as above Respiratory normal respiratory effort, lungs clear to auscultation Cardiovascular Rate/Rhythm: regular rate and regular rhythm Heart Sounds: no murmur Extremities: + edema (1+ pitting edema of the legs and feet/ankles bilaterally,improved) Musculoskeletal Extremities: + extremities abnormal to inspection (Bilateral knees with no erythema or effusion,no TTP) Psychiatric Orientation: alert and oriented x 3 Affect: + anxious affect Mood: + anxious mood Updated Medication List Medication Instructions Recorded Confirmed Type buprenorphine 8 mg-naloxone 2 mg 0.5 film sublingual BID 05/14/22 10/25/23 History sublingual film nystatin 100,000 unit/gram topical 1 applic topical BID PRN UNDER 05/14/22 10/25/23 History powder BREASTS NEEDED. ondansetron HCl 4 mg tablet 4 mg PO Q8H PRN NAUSEA/VOMITING 05/14/22 10/25/23 History quetiapine 200 mg tablet 200 mg PO HS 05/14/22 10/25/23 History levalbuterol HCl 1.25 mg/3 mL 1.25 mg inhalation TID PRN 01/16/23 10/25/23 History solution for nebulization Shortness Of Breath Or Wheezing enoxaparin 150 mg/mL subcutaneous 150 mg subcut QAM 05/07/23 10/25/23 History syringe alprazolam 0.5 mg tablet 0.5 mg PO TID #14 tabs 08/02/23 10/25/23 Rx albuterol sulfate 90 mcg/actuation 2 puff inhalation UD PRN Shortness 08/30/23 10/25/23 History aerosol inhaler Of Breath Or Wheezing guaifenesin 600 mg tablet, 600 mg PO Q12 PRN Congestion 09/11/23 10/25/23 History extended release 12 hr (Mucinex) fluticasone propionate 50 1 spray intranasal BID nasal 09/15/23 10/25/23 Rx mcg/actuation nasal congestion #0 mL spray,suspension (Flonase Allergy Relief) fluticasone fur. 200 mcg-umeclid 1 ea inhalation QAM #60 ea 09/16/23 10/25/23 Rx 62.5 mcg-vilant 25 mcg inhalat.powder (Trelegy Ellipta) levalbuterol tartrate 45 2 puff inhalation Q4 PRN WHEEZE 09/16/23 10/25/23 Rx mcg/actuation aerosol inhaler #15 grams bumetanide 2 mg tablet 2 mg PO BID #60 tabs 09/29/23 10/25/23 Rx insulin aspart U-100 100 unit/mL See Rx Instructions .Route 10/17/23 10/25/23 Rx (3 mL) subcutaneous pen (Novolog .COMPLEX #15 mL FlexPen U-100 Insulin aspart) insulin glargine 100 unit/mL (3 68 unit (0.68 mL) subcut QAM #15 mL 10/17/23 10/25/23 Rx mL) subcutaneous pen ipratropium bromide 0.02 % 3 ml continuous nebulization QID 10/17/23 10/25/23 Rx solution for inhalation PRN shortness of breath #75 mL metolazone 5 mg tablet 2.5 mg (1/2 x 5 mg) PO 2XWK #12 10/17/23 10/25/23 Rx tabs montelukast 10 mg tablet 10 mg PO DAILY #30 tabs 10/17/23 10/25/23 Rx (Singulair) potassium chloride 20 mEq 40 meq (2 x 20 mEq) PO TID #180 10/17/23 10/25/23 Rx tablet,extended release(part/cryst) tabs allopurinol 100 mg tablet 100 mg PO QAM #30 tabs 10/30/23 Rx calcium polycarbophil 625 mg 625 mg PO QAM #30 tabs 10/30/23 Rx tablet (Fiber (calcium polycarbophil)) colchicine 0.6 mg tablet (Colcrys) 0.6 mg PO BID PRN gout attacks #60 10/30/23 Rx tabs ibuprofen 200 mg tablet 600 mg (3 x 200 mg) PO TID PRN 10/30/23 Rx pain #30 tabs prednisone 10 mg tablet 20 mg (2 x 10 mg) PO QAM #30 tabs 10/30/23 10/25/23 Rx Hospital Stay Data Consultations 10/25/23 13:26 ED Decision to Admit Stat 10/25/23 15:48 Consult Behavioral Health Liaison Routine Diagnostic Imagining Performed 10/25/23 14:58 US venous doppler LE BI Stat Pending Results Patient Have Any Pending Studies at Discharge: No Discharge Instructions Given to Patient (Per Discharging Provider) For your GOUT: take one more day of the colchicine 0.6mg twice a day, then STOP. You can take colchicine 2 tablets as a one time dose followed by 1 tablet twice a day for 3 days in the future for gout attacks. You were started on allopurinol to help prevent future gout attacks. Your PCP can check your uric acid levels and increase the allopurinol dose as needed. You can take prednisone 20mg daily x 5 more days and then go back to taking 10mg daily. If you have a gout attack again in the future, you can take 5 days of prednisone 20mg daily, plus the colchicine as noted above. You can also take ibuprofen as needed. For your leg swelling, it is very important that you not overload yourself with fluids and sodium as we discussed. It is also CRITICAL that you never smoke another puff of a cigarette ever again. It is a combination of all of these things that makes you feel worse. You do not need to come to the hospital for leg swelling if you can get in to see your PCP or one of her associates on an acute basis. There is also the option of going to an urgent care clinic as well for more minor problems like gout attacks. Call your Primary Care doctor if any of the following symptoms or problems start or get worse: * Shortness of breath or difficulty breathing * Wake up at night short of breath * Chest pain * Cough * Swelling of your hands, feet, or legs * More fatigued or tired with your normal activity * Palpitations - sudden fast heart beats WEIGHT * Weigh yourself every morning after using the bathroom. * Use the same scale. * Wear the same amount of clothing. * Write your weight down on a chart. * Call your Primary Care doctor if you gain more than 2-3 pounds in 1-2 days. MEDICATIONS * Use this discharge instruction sheet for medication instructions. * Take your medications at the time your doctor ordered. * Do not skip a dose of your medicines. * If you miss a dose of medicine, take it as soon as possible, but DO NOT DOUBLE A DOSE. * Read your medicine information when you get home. * Know all of the side effects of your medicine. If in doubt, ask your pharmacist * Call your Primary Care doctor's office if you have any side effects. * Be sure all of your doctors know what medicine and herbs you take (including cold, flu, and herbal medicine). Take the following with you to your follow-up doctor appointments: * Weight Chart * Medication List * List of questions Do not drink excessive alcohol, beer or wine. Total Time Total Time Spent Total Time Spent (In Minutes): 45 min Total Time Includes: Examination of the Patient, Discharge Planning and Medication Reconciliation Coding Level of Care Code 51747 INP/OBS DISCH >30 MIN Diagnoses Acute on chronic respiratory failure with hypoxia J96.21 Chronic heart failure with preserved ejection fraction I50.32 Heart failure chronicity: chronic Gout M10.9 COPD (chronic obstructive pulmonary disease) J44.9 COPD type: unspecified COPD Type 2 diabetes mellitus without complication, with long-term current use of insulin E11.9; Z79.4 Diabetes mellitus complication status: without complication 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
[2023-10-30] MEDS: predniSONE 10 MG TABLET PO ONE (11:14)
== END 2023-10-30 11:22 | disposition home or self-care (01) | DRG 189 ==
LOC: ED 11:44 → SUATTDRO 14:36 → 2N 14:36

== ENCOUNTER 2023-11-07 16:50 | Inpatient (IN) ==
--- NOTE | 2023-11-07 16:56 | Emergency Department Note ---
Impression & Plan Acute exacerbation of chronic obstructive pulmonary disease, Acute and chronic respiratory failure with hypoxia, Elevated troponin ED Provider Note NAME: LIANNE SAMUEL AGE: 63 SEX: F : 1960 ARRIVES VIA: Walk-In INFORMANT: [Patient][, ] ED PROVIDER(S): [Monico Obregon MD] CHIEF COMPLAINT: Shortness of breath MEDICAL DECISION MAKING: Patient presents due to concern for shortness of breath. IV was established and blood work was obtained. IV magnesium DuoNebs and IV methylprednisolone were ordered. Blood work shows a white count of 20,000 with a normal H&H and platelet count. The patient's kidney function with creatinine 1.65. This is worse compared to before. Patient's troponin is slightly up at 40 but has had elevated troponins in the past. Bicarb 33 likely secondary to the patient's chronic COPD/emphysema. VBG does not show evidence of significant hypercarbia. Patient was noted to be hypoxic at 84% on room air. Patient was reassessed after some of her treatments and has not had any significant improvement of aeration of the lungs. Patient is amenable to inpatient treatment at this time. I did speak with the on-call hospital service Dr. Linton and the patient was admitted. Critical Care: I have personally spent 35 minutes of critical care time in direct management of this patient. This includes bedside care, interpretation of diagnostic studies, and testing, discussion with consultants, patient, and family members, and other require inpatient management activities. This 35 minutes is in excess of all separately billable procedures. Discussion w/ other healthcare providers: Dr. Linton inpatient medicine service Prior /Outside records reviewed: [none] Differential diagnosis: Reactive airway disease, pneumonia, pneumothorax, COPD, CHF, ACS, pulmonary embolism, musculoskeletal, GERD as well as other pathologies were considered. Diagnostics, as interpreted by me: ECG: Sinus tachycardia, rate of 109, normal intervals, normal axis, Q-wave noted in lead III and aVF. No ST elevations. Q waves are old for comparison EKG October 25, 2023 Cardiac monitoring: An order was placed for continuous cardiac monitoring. The monitor shows a rate of 95 with sinus rhythm. [Patient was placed on pulse oximetry] Medical decision rules: [none] Imaging studies: [I informally interpreted the patient's chest x-ray does not show obvious pneumonia or pneumothorax with formal report to follow.] [] HPI: Patient presents due to concern for worsening shortness of breath. The patient states that she was seen twice in the outpatient setting and most recently on did receive an IM injection of Solu-Medrol. Patient states that she has been using her nebulizers at home and is compliant. The patient states that she did recently smoke this past week but otherwise had not smoked in about 3 weeks time. Patient denies any chest pains. The patient feels as though she might have phlegm but is not coughing anything up. Patient states that her nebulizers were not improving her symptoms. Patient states that she was prescribed a steroid taper after being given her IM injection in the office. Patient states though that today she seemed to have persistent symptoms without any relief at home. Patient does have some slight swelling to the bilateral lower extremities although this is chronic. During most recent inpatient stay the patient did was receiving Lovenox in the abdomen for which she does have some associated bruising but denies any falls or trauma. Patient states that she is currently anticoagulated on chronic Lovenox at home for prior history of PEs. Patient denies any recent surgeries or procedures no recent prolonged car plane travel. PAST MEDICAL HISTORY: [See Below] PAST SURGICAL HISTORY: [See Below] SOCIAL HISTORY: [See Below] HOME MEDICATIONS: [See Below] ALLERGIES: [See Below] VITALS: [See Below] PHYSICAL EXAMINATION: GENERAL: NAD, non-toxic. Mild conversational dyspnea EYE EXAM: Normal conjunctiva. PERRL, no anisocoria and EOM's grossly intact w/o pain. OROPHARYNX: Moist mucus membranes, grossly normal dentition. NECK: Trachea midline, no stridor. LUNGS: Decreased breath sounds throughout with prolonged expiratory phase mild wheezing. Normal chest wall mechanics. HEART: Tachycardic and regular, no MRG. ABDOMEN: Abdomen soft, non-tender, no masses, no rebound or guarding. BACK: No CVA TTP. SKIN: Bruising noted to the lower abdomen. UPPER EXTREMITIES: Upper extremities are grossly normal. LOWER EXTREMITIES: Grossly normal, trace pretibial edema without any calf pain or erythema. NEURO EXAM: A&O x3, cranial nerves II-XII grossly intact, normal speech, moves all 4 extremities. Past Med/Surg History Problem List (Updated 11/07/23 @ 18:36 by Monico Obregon MD) Elevated troponin (Acute) Acute and chronic respiratory failure with hypoxia (Acute) Acute exacerbation of chronic obstructive pulmonary disease (Acute) Gout Leukocytosis (Acute) Chronic hypoxic respiratory failure Acute hypokalemia (Acute) Shortness of breath (Acute) Multiple myeloma Last chemotherapy 2016 Follows with medical oncology in [facility] Diabetes Hypokalemia Heart failure with preserved ejection fraction COPD (chronic obstructive pulmonary disease) (Acute) Shortness of breath (Acute) Generalized anxiety disorder Chronic respiratory failure with hypoxia and hypercapnia Tobacco abuse counseling Chronic hypercapnic respiratory failure Moderate persistent asthma Constipation History of pulmonary embolism Obesity hypoventilation syndrome Chronic anticoagulation Acute bronchitis Pulmonary vascular congestion Right knee pain Nasal fracture Rib fractures (Acute) COPD (chronic obstructive pulmonary disease) (Acute) Medical History Acute exacerbation of chronic obstructive pulmonary disease Tobacco abuse Opiate dependence Dyspnea Acute heart failure with preserved ejection fraction (HFpEF) Asthma Surgical History No pertinent past surgical history Family History Sister Asthma Social History Smoking Status: Never smoker Tobacco Type: Cigarettes Cigarettes Per Day: 1 cigarette per day; Second Hand Exposure: No; Do You Dip or Chew Tobacco: No; Hx Alcohol Use: No Hx Substance Use: No Preferred Language: Chinese Communication Ability: Effective Sports Media Required: No Beliefs That Will Affect Care: None Current Living Situation: Family Current Living Situation Comment: lives with sister temporarily Feels Safe at Home: Yes Assistive Devices: CPAP and Oxygen - at Night Allergies Allergies Allergy/AdvReac Type Severity Reaction Status Date / Time codeine Allergy Severe Anaphylaxis Verified 10/25/23 15:04 Iodinated Contrast Media Allergy Severe Anaphylaxis Verified 10/25/23 15:04 shellfish derived Allergy Severe Anaphylaxis Verified 10/25/23 15:04 tramadol Allergy Intermediate ITCHINESS Verified 10/25/23 15:04 iohexol Allergy Unknown CAN'T Verified 10/25/23 15:04 REMEMBER diphenhydramine AdvReac Severe Anxiety Verified 10/25/23 15:04 [From Benadryl] promethazine AdvReac Intermediate Anxiety Verified 06/30/24 15:04 Home Meds Home Medications Medication Instructions Recorded Confirmed buprenorphine 8 mg-naloxone 2 mg 0.5 film sublingual BID 05/14/22 10/25/23 sublingual film nystatin 100,000 unit/gram topical 1 applic topical BID PRN UNDER 05/14/22 10/25/23 powder BREASTS NEEDED. ondansetron HCl 4 mg tablet 4 mg PO Q8H PRN NAUSEA/VOMITING 05/14/22 10/25/23 quetiapine 200 mg tablet 200 mg PO HS 05/14/22 10/25/23 levalbuterol HCl 1.25 mg/3 mL 1.25 mg inhalation TID PRN 01/16/23 10/25/23 solution for nebulization Shortness Of Breath Or Wheezing enoxaparin 150 mg/mL subcutaneous 150 mg subcut QAM 05/07/23 10/25/23 syringe albuterol sulfate 90 mcg/actuation 2 puff inhalation UD PRN Shortness 08/30/23 10/25/23 aerosol inhaler Of Breath Or Wheezing guaifenesin 600 mg tablet, 600 mg PO Q12 PRN Congestion 09/11/23 10/25/23 extended release 12 hr (Mucinex) Previous Rx's Medication Instructions Recorded alprazolam 0.5 mg tablet 0.5 mg PO TID #14 tabs 08/02/23 fluticasone propionate 50 1 spray intranasal BID nasal 09/15/23 mcg/actuation nasal congestion #0 mL spray,suspension (Flonase Allergy Relief) fluticasone fur. 200 mcg-umeclid 1 ea inhalation QAM #60 ea 09/16/23 62.5 mcg-vilant 25 mcg inhalat.powder (Trelegy Ellipta) levalbuterol tartrate 45 2 puff inhalation Q4 PRN WHEEZE 09/16/23 mcg/actuation aerosol inhaler #15 grams bumetanide 2 mg tablet 2 mg PO BID #60 tabs 09/29/23 insulin aspart U-100 100 unit/mL See Rx Instructions .Route 10/17/23 (3 mL) subcutaneous pen (Novolog .COMPLEX #15 mL FlexPen U-100 Insulin aspart) insulin glargine 100 unit/mL (3 68 unit (0.68 mL) subcut QAM #15 mL 10/17/23 mL) subcutaneous pen ipratropium bromide 0.02 % 3 ml continuous nebulization QID 10/17/23 solution for inhalation PRN shortness of breath #75 mL metolazone 5 mg tablet 2.5 mg (1/2 x 5 mg) PO 2XWK #12 10/17/23 tabs montelukast 10 mg tablet 10 mg PO DAILY #30 tabs 10/17/23 (Singulair) potassium chloride 20 mEq 40 meq (2 x 20 mEq) PO TID #180 10/17/23 tablet,extended release(part/cryst) tabs allopurinol 100 mg tablet 100 mg PO QAM #30 tabs 10/30/23 calcium polycarbophil 625 mg 625 mg PO QAM #30 tabs 10/30/23 tablet (Fiber (calcium polycarbophil)) colchicine 0.6 mg tablet (Colcrys) 0.6 mg PO BID PRN gout attacks #60 10/30/23 tabs ibuprofen 200 mg tablet 600 mg (3 x 200 mg) PO TID PRN 10/30/23 pain #30 tabs prednisone 10 mg tablet 20 mg (2 x 10 mg) PO QAM #30 tabs 10/30/23 Results & Data (ED) Vital Signs Vital Signs - 24 hr 11/07/23 16:52 11/07/23 17:19 11/07/23 17:27 Temperature 36.5 C Temperature Source Temporal Artery Scan Pulse Rate 118 H 119 H Pulse Rate [Left Finger] Respiratory Rate 20 Respiratory Effort / Characteristics Non-Labored Spontaneous Labored Respiratory Depth Normal Blood Pressure 134/79 Blood Pressure [Left Arm] Blood Pressure Mean 97 Blood Pressure Mean [Left Arm] Blood Pressure Position [Left Arm] Pulse Oximetry 95 Oxygen Delivery Method Room Air Oxygen Flow Rate Sepsis Recent Fever Within 48 Hours No Sepsis New/Unexplained Change in Mental Status No Sepsis Action Taken by Nursing No Action Required 11/07/23 17:27 11/07/23 17:43 11/07/23 17:43 Temperature Temperature Source Pulse Rate Pulse Rate [Left Finger] Respiratory Rate Respiratory Effort / Characteristics Respiratory Depth Blood Pressure Blood Pressure [Left Arm] Blood Pressure Mean Blood Pressure Mean [Left Arm] Blood Pressure Position [Left Arm] Pulse Oximetry 93 84 L 95 Oxygen Delivery Method Room Air Room Air Nasal Cannula Oxygen Flow Rate 2 Sepsis Recent Fever Within 48 Hours Sepsis New/Unexplained Change in Mental Status Sepsis Action Taken by Nursing 11/07/23 18:25 Temperature Temperature Source Pulse Rate Pulse Rate [Left Finger] 88 Respiratory Rate 24 Respiratory Effort / Characteristics Respiratory Depth Blood Pressure Blood Pressure [Left Arm] 131/77 Blood Pressure Mean Blood Pressure Mean [Left Arm] 95 Blood Pressure Position [Left Arm] Sitting Pulse Oximetry 98 Oxygen Delivery Method Nebulizer Oxygen Flow Rate Sepsis Recent Fever Within 48 Hours Sepsis New/Unexplained Change in Mental Status Sepsis Action Taken by Care Home Medications Current Medication List: was personally reviewed by me Laboratory Data Attestation: I reviewed the patient's lab results. 11/07/23 17:17 11/07/23 17:17 Lab Results 11/07/23 Range/Units 17:17 WBC 20.12 H (4.8-10.8) K/ul RBC 5.14 (4.20-5.40) M/uL Hgb 13.7 (12.0-16.0) g/dl Hct 42.5 (37.0-47.0) % MCV 82.7 (80.0-100.0) fL MCH 26.7 (25.0-34.0) pg MCHC 32.2 (32.0-36.0) g/dL RDW Std Deviation 52.7 H (36.4-46.3) fL RDW Coeff of [place]ick 18.1 H (11.5-14.5) % Plt Count 345 (130-400) K/uL MPV 9.6 (9.4-12.4) fL Immature Gran % (Auto) 1.4 % Neut % (Auto) 89.5 % Lymph % (Auto) 6.9 % [place] % (Auto) 2.1 % Eos % (Auto) 0.0 % Baso % (Auto) 0.1 % Neut # (Auto) 18.00 H (1.40-6.50) K/uL Lymph # (Auto) 1.39 (1.20-3.40) K/uL [place] # (Auto) 0.42 (0.11-0.59) K/uL Eos # (Auto) 0.01 (0.00-0.50) K/uL Baso # (Auto) 0.02 (0.00-0.20) K/uL Immature Gran # (Auto) 0.28 H (0.01-0.20) K/uL PT 10.5 (9.0-12.0) Seconds INR 1.0 (0.9-1.1) APTT 22 (21-31) Seconds PTT Ratio 0.8 VBG pH 7.46 H (7.36-7.41) VBG pCO2 49 (38-50) mmHg VBG pO2 38 mmHg VBG HCO3 35 mmol/L VBG O2 Saturation 69.8 % VBG Base Excess 9.4 mEq/L Sodium 136 (136-145) mmol/L Potassium 3.5 (3.5-5.1) mmol/L Chloride 91 L (98-107) mmol/L Carbon Dioxide 33 H (21-32) mmol/L Anion Gap 12 H (3-11) BUN 62 H (6-23) mg/dl Creatinine 1.65 H (0.6-1.2) mg/dl Est Cr Clr Drug Dosing Not Reportable Est GFR ( Amer) 38.2 ml/min Est GFR (Non-Af Amer) 32.9 ml/min BUN/Creatinine Ratio 37.6 H (10-20) Glucose 261 H (70-99(Fasting)) mg/dl Calcium 9.4 (8.6-10.3) mg/dl Magnesium 2.1 (1.7-2.4) mg/dl Total Bilirubin 0.4 (0.2-1.0) mg/dl AST 15 (13-39) U/L ALT 20 (7-52) U/L Alkaline Phosphatase 81 (34-104) U/L Troponin I High Sens 40.4 H (0-14) pg/ml Total Protein 7.1 (6.0-8.3) gm/dl Albumin 4.3 (3.4-5.0) gm/dl Globulin 2.8 (2.5-4.0) gm/dl Albumin/Globulin Ratio 1.5 (0.9-2) Administered Medications Discontinued Medications Albuterol (Albut/Ipratrop 3mg/0.5mg Neb 3 Ml Vial) 12 ml NEB ONE ONE; Protocol Stop: 11/07/23 17:09 Last Admin: 11/07/23 17:45 Dose: 12 ml Documented By: SARWAT Magnesium Sulfate/Dextrose (Magnesium Sulfate / D5w) 1 gm in 100 mls @ 200 mls/hr IV Q30M FLETCHER Stop: 11/07/23 18:06 Last Infusion: 11/07/23 18:00 Dose: Infused Documented By: Admin: 11/07/23 17:27 Dose: 200 mls/hr Documented By: Infusion: 11/07/23 17:27 Dose: Infused Documented By: Admin: 11/07/23 17:24 Dose: 200 mls/hr Documented By: JON Methylprednisolone (Methylprednisolone 125 Mg/2 Ml Vial) 125 mg IV NOW STA Stop: 11/07/23 17:07 Last Admin: 11/07/23 17:23 Dose: 125 mg Documented By: JON Imaging Data Radiologist's Impression: Chest X-Ray 11/07/23 17:06 SINGLE VIEW CHEST CLINICAL HISTORY: Dyspnea FINDINGS: An AP, portable, upright chest radiograph is compared to study dated 10/25/2023 and correlated with chest CT dated 09/30/2023. The cardiomediastinal silhouette is unremarkable noting atherosclerotic calcification of the thoracic aorta. Chronic interstitial thickening is similar to previous. There is bibasilar scarring/atelectasis. No airspace consolidation or large pleural effusion is identified. No pneumothorax is seen. The skeletal structures are osteopenic. The bony thorax is grossly intact. IMPRESSION: No active disease in the chest. ACT 112: Negative or not required by law. Electronically signed by: Cayetano Espinoza M.D. 11/07/2023 5:20 PM Discharge Plan Visit Data Chief Complaint: Shortness of Breath/Dyspnea Stated Complaint: DIFFICULTY BREATH ED Provider: Monico Obregon Discharge Problem: Acute exacerbation of chronic obstructive pulmonary disease, Acute and chronic respiratory failure with hypoxia, Elevated troponin Forms Stand Alone Forms: My [facility] [employer] Prescriptions Prescriptions: No Action ondansetron HCl 4 mg Tablet 4 mg PO Q8H PRN (Reason: NAUSEA/VOMITING) quetiapine 200 mg tablet 200 mg PO HS nystatin 100,000 unit/gram Powder 1 applic TOPICAL BID PRN (Reason: UNDER BREASTS NEEDED.) buprenorphine-naloxone 8-2 mg film 0.5 film sublingual BID enoxaparin 150 mg/mL syringe 150 mg subcut QAM levalbuterol HCl 1.25 mg/3 mL solution for nebulization 1.25 mg INHALATION TID PRN (Reason: Shortness Of Breath Or Wheezing) alprazolam 0.5 mg tablet 0.5 mg PO TID Qty: 14 0RF Rx Instructions: pt requesting to take same time as suboxone albuterol sulfate 90 mcg/actuation HFA aerosol inhaler 2 puff INHALATION UD PRN (Reason: Shortness Of Breath Or Wheezing) bumetanide 2 mg tablet 2 mg PO BID Qty: 60 0RF Rx Instructions: morning and lunch metolazone 5 mg tablet 2.5 mg PO 2XWK Qty: 12 0RF Rx Instructions: on Mondays and potassium chloride 20 mEq Tablet,Er Particles/Crystals 40 meq PO TID Qty: 180 0RF montelukast [Singulair] 10 mg tablet 10 mg PO DAILY Qty: 30 0RF ipratropium bromide 0.02 % solution 3 ml continuous nebulization QID PRN (Reason: shortness of breath) Qty: 75 0RF insulin aspart U-100 [Novolog FlexPen U-100 Insulin] 100 unit/mL (3 mL) insulin pen See Rx Instructions .ROUTE .COMPLEX Qty: 15 0RF Rx Instructions: As per your paper chart provided insulin glargine 100 unit/mL (3 mL) insulin pen 68 unit SUBCUT QAM Qty: 15 0RF ibuprofen 200 mg tablet 600 mg PO TID PRN (Reason: pain) Qty: 30 0RF Rx Instructions: Over the counter Fiber (calcium polycarbophil) 625 mg Tablet 625 mg PO QAM Qty: 30 0RF Rx Instructions: Over the counter allopurinol 100 mg Tablet 100 mg PO QAM Qty: 30 0RF colchicine [Colcrys] 0.6 mg Tablet 0.6 mg PO BID PRN (Reason: gout attacks) Qty: 60 0RF Rx Instructions: Take 1.2mg po x 1 followed by 0.6mg po bid x 3 days prednisone 10 mg Tablet 20 mg PO QAM Qty: 30 0RF Rx Instructions: x 5 days then decrease back to 10mg daily guaifenesin [Mucinex] 600 mg tablet extended release 12hr 600 mg PO Q12 PRN (Reason: Congestion) Rx Instructions: OTC fluticasone propionate [Flonase Allergy Relief] 50 mcg/actuation spray,suspension 1 spray intranasal BID Qty: 0 0RF Rx Instructions: administer into each nostril Trelegy Ellipta 200-62.5-25 mcg blister with device 1 ea INHALATION QAM Qty: 60 0RF levalbuterol tartrate 45 mcg/actuation HFA aerosol inhaler 2 puff INHALATION Q4 PRN (Reason: WHEEZE) Qty: 15 0RF Referrals Referrals: Radha Barboza PA-C [Primary Care Provider] -
--- NOTE | 2023-11-07 17:21 | XRay Report ---
SINGLE VIEW CHEST CLINICAL HISTORY: Dyspnea FINDINGS: An AP, portable, upright chest radiograph is compared to study dated 10/25/2023 and correlat ed with chest CT dated 09/30/2023. The cardiomediastinal silhouette is unremarkable noting atherosclero tic calcification of the thoracic aorta. Chronic interstitial thickening is similar to previous. Ther e is bibasilar scarring/atelectasis. No airspace consolidation or large pleural effusion is identifie d. No pneumothorax is seen. The skeletal structures are osteopenic. The bony thorax is grossly intact . IMPRESSION: No active disease in the chest. ACT 112: Negative or not required by law. Electronically signed by: Cayetano Espinoza M.D. 11/07/2023 5:20 PM
[2023-11-07] MEDS: methylPREDNISolone 125 MG/2 ML VIAL IV STA (17:23)
[2023-11-07] MEDS: MAGNESIUM SULFATE / D5W 1 GM/100 ML BAG IV SCH (17:24)
[2023-11-07 17:29] LABS: Base Excess VBG 9.4 mEq/L; HCO3 VBG 35 mmol/L; Oxygen Saturation VBG 69.8 %; PCO2 VBG 49 mmHg (38-50); PO2 VBG 38 mmHg; pH VBG 7.46 (7.36-7.41)
[2023-11-07 17:33] LABS: Basophils # (auto) 0.02 K/uL (0.00-0.20); Basophils % (auto) 0.1 %; Eosinophils # (auto) 0.01 K/uL (0.00-0.50); Hematocrit (blood only) 42.5 % (37.0-47.0); Hemoglobin 13.7 g/dl (12.0-16.0); Immature Granulocytes # (auto) 0.28 K/uL (0.01-0.20); Immature Granulocytes % (auto) 1.4 %; Lymphocytes # (auto) 1.39 K/uL (1.20-3.40); Lymphocytes % (auto) 6.9 %; Mean Corpuscular Hemoglobin 26.7 pg (25.0-34.0); Mean Corpuscular Hgb Conc 32.2 g/dL (32.0-36.0); Mean Corpuscular Volume 82.7 fL (80.0-100.0); Mean Platelet Volume 9.6 fL (9.4-12.4); Monocytes # (auto) 0.42 K/uL (0.11-0.59); Monocytes % (auto) 2.1 %; Neutrophils % (auto) 89.5 %; Platelet Count 345 K/uL (130-400); RDW Coefficient of Variation 18.1 % (11.5-14.5); RDW Standard Deviation 52.7 fL (36.4-46.3); Red Blood Count 5.14 M/uL (4.20-5.40); White Blood Count 20.12 K/ul (4.8-10.8)
[2023-11-07] MEDS: ALBUT/IPRATROP 3MG/0.5MG NEB 3 ML VIAL NEB ONE (17:45)
[2023-11-07 17:50] LABS: Alanine Aminotransferase 20 U/L (7-52); Albumin Globulin Ratio 1.5 (0.9-2); Albumin Level 4.3 gm/dl (3.4-5.0); Alkaline Phosphatase 81 U/L (34-104); Anion Gap 12 (3-11); Aspartate Aminotransferase 15 U/L (13-39); BUN Creatinine Ratio 37.6 (10-20); Bilirubin,Total 0.4 mg/dl (0.2-1.0); Blood Urea Nitrogen 62 mg/dl (6-23); Calcium 9.4 mg/dl (8.6-10.3); Carbon Dioxide 33 mmol/L (21-32); Chloride 91 mmol/L (98-107); Est GFR (African American) 38.2 ml/min; Est GFR (Non-African American) 32.9 ml/min; Globulin 2.8 gm/dl (2.5-4.0); Glucose 261 mg/dl (70-99(Fasting)); Magnesium 2.1 mg/dl (1.7-2.4); Potassium 3.5 mmol/L (3.5-5.1); Sodium 136 mmol/L (136-145); Total Protein 7.1 gm/dl (6.0-8.3)
[2023-11-07 17:56] LABS: Troponin I High Sensitivity 40.4 pg/ml (0-14)
[2023-11-07 18:01] LABS: Partial Thromboplastin Ratio 0.8; Partial Thromboplastin Time 22 Seconds (21-31); Prothrombin Time 10.5 Seconds (9.0-12.0)
--- NOTE | 2023-11-07 18:32 | History & Physical Report ---
Date of Service November 07, 2023 Assessment & Plan (1) Acute exacerbation of chronic obstructive pulmonary disease: Plan: Admit to [facility] on pulse oximetry Currently stable on nonrebreather receiving albuterol treatment Presented to the ED for progressive shortness of breath since her last admission and discharged on 10/30/2023 Per her history, it appears that her current COPD exacerbation is due to restarting tobacco use due to life stressors what Leukocytosis likely due to the IM Solu-Medrol injection received yesterday at her PCP's office Will obtain bio fire to rule out infectious etiology Status post 125 mg IV Solu-Medrol, currently receiving an hour-long albuterol treatment, and 1 g IV Solu-Medrol Will continue with 60 mg IV Solu-Medrol 3 times daily, 4 times daily scheduled DuoNeb treatments, twice daily hypertonic saline nebs, incentive spirometry, flutter therapy Continue stress importance of smoking cessation Will obtain sputum culture with Gram stain but hold antibiotics for now Continue home Lovenox for DVT prophylaxis Heart healthy/DM type II diet with 1800 mL fluid restriction AM CBC, CMP, mag, PT/INR (2) Shortness of breath: Plan: See COPD exacerbation plan (3) Elevated troponin: Plan: Initial high-sensitivity troponin 49 Patient denies chest pain, no acute ST segment/T wave changes Consistent with previous admissions, likely due to demand Follow repeat high-sensitivity troponin (4) Generalized anxiety disorder: Plan: Continue as needed Xanax, and at bedtime Seroquel (5) DM II (diabetes mellitus, type II), controlled: Plan: Monitor BSG ACHS, goal is [id number] Will increase her Lantus to 40 units twice daily as she will likely be hyperglycemic on systemic steroids Start CF of 50 and CR of 15 ACHS Pharmacy glycemic consult placed (6) Opiate dependence: Plan: Continue buprenorphine (7) Heart failure with preserved ejection fraction: Plan: Currently appears euvolemic Creatinine mildly elevated today Will hold for at bedtime diuretics tonight Monitor renal function (8) Tobacco abuse counseling: Plan: Continue stress importance of smoking cessation as this likely caused her recent COPD exacerbation (9) History of pulmonary embolism: Plan: Continue home Lovenox Plan Patient discussed with Dr. Linton the time of the admission History of Present Illness Primary Care Provider: Radha Jabari Cardoso is a 63-year-old female with a past medical history including severe COPD, chronic hypoxic respiratory failure using 3 LNC at bedtime, chronic ongoing tobacco use, opiate dependence on Suboxone, HFpEF, severe anxiety on chronic xanax, obesity hypoventilation syndrome, DMII, VTE on Lovenox, Multiple myeloma s/p Stem cell tx, and hypokalemia Who presented to the [facility] ED on 11/07/2023 for ongoing shortness of breath. Patient is well-known to our group as she requires frequent hospitalization for COPD exacerbations due to ongoing tobacco abuse. Was recently admitted from for COPD exacerbation, CHF exacerbation, and acute gout flare. On arrival to the ED she was noted to be tachycardic at 118, hypoxic at 84% on room air, but otherwise stable. Labs were significant for a leukocytosis of 20 with neutrophil predominance of 18, VBG pH of 7.46, pCO2 of 49, pO2 of 38, creatinine of 1.65 (baseline is near 1.1), BUN of 62, anion gap of 12 with bicarb of 33, initial high-sensitivity troponin of 40. Chest x-ray was read as negative for acute findings. Prior to admission the patient was given an hour- long albuterol treatment, 1 g IV mag sulfate, and 125 mg IV methylprednisolone. Patient was sitting on the side of the bed in no acute distress at the time of exam. She states that her breathing has continued to get worse since her last admission. She was seen at her PCPs office yesterday and received an IM injection of Solu-Medrol which helped for a bit but respiratory status worsened overnight. When asked, she states that she had quit smoking for about 3 weeks and was doing well, unfortunately her plans to move down with her son has been delayed. The increased stress caused her to start smoking approximately 2 to 3 cigarettes a day. No other complaints at this time. Denies recent fever/chills, chest pain, hemoptysis, abdominal pain, nausea/vomiting, dysuria, hematuria, melena, lower extremity swelling, recent trauma. She is a full code. Please refer to Dr. Linton's attestation for any changes to the treatment plan. Allergies Allergy/AdvReac Type Severity Reaction Status Date / Time codeine Allergy Severe Anaphylaxis Verified 11/07/23 19:31 Iodinated Contrast Media Allergy Severe Anaphylaxis Verified 11/07/23 19:31 shellfish derived Allergy Severe Anaphylaxis Verified 11/07/23 19:31 tramadol Allergy Intermediate ITCHINESS Verified 11/07/23 19:31 iohexol Allergy Unknown CAN'T Verified 11/07/23 19:31 REMEMBER diphenhydramine AdvReac Severe Anxiety Verified 11/07/23 19:31 [From Benadryl] promethazine AdvReac Intermediate Anxiety Verified 11/07/23 19:31 Home Medications Medication Instructions Recorded Confirmed Type buprenorphine 8 mg-naloxone 2 mg 0.5 film sublingual BID 05/14/22 11/07/23 History sublingual film nystatin 100,000 unit/gram topical 1 applic topical BID PRN UNDER 05/14/22 11/07/23 History powder BREASTS NEEDED. ondansetron HCl 4 mg tablet 4 mg PO Q8H PRN NAUSEA/VOMITING 05/14/22 11/07/23 History quetiapine 200 mg tablet 200 mg PO HS 05/14/22 11/07/23 History levalbuterol HCl 1.25 mg/3 mL 1.25 mg inhalation TID PRN 01/16/23 11/07/23 History solution for nebulization Shortness Of Breath Or Wheezing enoxaparin 150 mg/mL subcutaneous 150 mg subcut QAM PRN Nasal 05/07/23 11/07/23 History syringe Congestion alprazolam 0.5 mg tablet 0.5 mg PO TID #14 tabs 08/02/23 11/07/23 Rx albuterol sulfate 90 mcg/actuation 2 puff inhalation UD PRN Shortness 08/30/23 11/07/23 History aerosol inhaler Of Breath Or Wheezing guaifenesin 600 mg tablet, 600 mg PO Q12 PRN Congestion 09/11/23 11/07/23 History extended release 12 hr (Mucinex) fluticasone propionate 50 1 spray intranasal BID nasal 09/15/23 11/07/23 Rx mcg/actuation nasal congestion #0 mL spray,suspension (Flonase Allergy Relief) fluticasone fur. 200 mcg-umeclid 1 ea inhalation QAM #60 ea 09/16/23 11/07/23 Rx 62.5 mcg-vilant 25 mcg inhalat.powder (Trelegy Ellipta) levalbuterol tartrate 45 2 puff inhalation Q4 PRN WHEEZE 09/16/23 11/07/23 Rx mcg/actuation aerosol inhaler #15 grams bumetanide 2 mg tablet 2 mg PO BID #60 tabs 09/29/23 11/07/23 Rx insulin glargine 100 unit/mL (3 68 unit (0.68 mL) subcut QAM #15 mL 10/17/23 11/07/23 Rx mL) subcutaneous pen ipratropium bromide 0.02 % 3 ml continuous nebulization QID 10/17/23 11/07/23 Rx solution for inhalation PRN shortness of breath #75 mL potassium chloride 20 mEq 40 meq (2 x 20 mEq) PO TID #180 10/17/23 11/07/23 Rx tablet,extended release(part/cryst) tabs allopurinol 100 mg tablet 100 mg PO QAM #30 tabs 10/30/23 11/07/23 Rx calcium polycarbophil 625 mg 625 mg PO QAM #30 tabs 10/30/23 11/07/23 Rx tablet (Fiber (calcium polycarbophil)) colchicine 0.6 mg tablet (Colcrys) 0.6 mg PO BID PRN gout attacks #60 10/30/23 11/07/23 Rx tabs ibuprofen 200 mg tablet 600 mg (3 x 200 mg) PO TID PRN 10/30/23 11/07/23 Rx pain #30 tabs Ozempic Inj 0 mg INJ DIRECTED 11/07/23 11/07/23 History insulin aspart U-100 100 unit/mL 0 unit subcut TIDM 11/07/23 11/07/23 History (3 mL) subcutaneous pen (Novolog FlexPen U-100 Insulin aspart) metolazone 5 mg tablet 2.5 mg PO 4XD 11/07/23 11/07/23 History prednisone 10 mg tablet 0 mg PO .TAPER DIRECTED 11/07/23 11/07/23 History Past Med/Surg History Problem List (Updated 11/07/23 @ 19:16 by Amari Macias PA-C) DM II (diabetes mellitus, type II), controlled Elevated troponin (Acute) Acute and chronic respiratory failure with hypoxia (Acute) Acute exacerbation of chronic obstructive pulmonary disease (Acute) Gout Leukocytosis (Acute) Chronic hypoxic respiratory failure Acute hypokalemia (Acute) Shortness of breath (Acute) Multiple myeloma Last chemotherapy 2016 Follows with medical oncology in [facility] Diabetes Hypokalemia Heart failure with preserved ejection fraction COPD (chronic obstructive pulmonary disease) (Acute) Shortness of breath (Acute) Generalized anxiety disorder Chronic respiratory failure with hypoxia and hypercapnia Tobacco abuse counseling Chronic hypercapnic respiratory failure Moderate persistent asthma Constipation History of pulmonary embolism Obesity hypoventilation syndrome Chronic anticoagulation Acute bronchitis Pulmonary vascular congestion Right knee pain Nasal fracture Rib fractures (Acute) COPD (chronic obstructive pulmonary disease) (Acute) Medical History Acute exacerbation of chronic obstructive pulmonary disease Tobacco abuse Opiate dependence Dyspnea Acute heart failure with preserved ejection fraction (HFpEF) Asthma Surgical History No pertinent past surgical history Family History Sister Asthma Social History Smoking Status: Light tobacco smoker Tobacco Type: Cigarettes Cigarettes Per Day: 1 cigarette per day; Second Hand Exposure: No; Do You Dip or Chew Tobacco: No; Hx Alcohol Use: No Hx Substance Use: No Preferred Language: Czech Communication Ability: Effective Purchasing Expeditor Required: No Beliefs That Will Affect Care: None Current Living Situation: Family Current Living Situation Comment: lives with sister temporarily Feels Safe at Home: Yes Assistive Devices: Other Physical Exam Physical Exam: Physical Exam: General: In no acute distress, stated age, chronically ill appearing but non- toxic HEENT: Normocephalic, atraumatic, no scleral icterus, pupils around round, symmetrical, and reactive to light, moist mucus membranes, trachea midline, no thyromegaly Chest/Pulm: No respiratory distress, symmetrical chest expansion, very little air movement throughout Cardiac: RRR, no murmurs noted Abdomen: Negative for ascites and bruising, normoactive bowel sounds, soft, non-tender to palpation throughout Musculoskeletal: Symmetrical and without signs of acute trauma, upper and lower extremities with full ROM, no atrophy, spasticity, or flaccidity Extremities: Radial, dorsalis pedis, and posterior tibial pulses are intact and symmetrical, no edema noted in the BL LE's Skin: Warm, dry, no rashes , lesions, or scars noted Neuro: Alert and oriented to person, place, month, year, and president, no focal defects, no tremors noted Psych: No acute distress, calm and cooperative during the exam Results & Data Results & Data Vital Signs (Past 12 Hours) Vital Signs Temp Pulse Resp BP Pulse Ox O2 Del Method O2 Flow Rate 11/07/23 17:43 95 Nasal Cannula 2 11/07/23 17:43 84 L Room Air 11/07/23 17:27 93 Room Air 11/07/23 17:19 119 H 11/07/23 16:52 36.5 C 118 H 20 134/79 95 Room Air Laboratory Results Abnormal lab results 11/07/23 Range/Units 17:17 WBC 20.12 H (4.8-10.8) K/ul RDW Std Deviation 52.7 H (36.4-46.3) fL RDW Coeff of Malick 18.1 H (11.5-14.5) % Neut # (Auto) 18.00 H (1.40-6.50) K/uL Immature Gran # (Auto) 0.28 H (0.01-0.20) K/uL VBG pH 7.46 H (7.36-7.41) Chloride 91 L (98-107) mmol/L Carbon Dioxide 33 H (21-32) mmol/L Anion Gap 12 H (3-11) BUN 62 H (6-23) mg/dl Creatinine 1.65 H (0.6-1.2) mg/dl BUN/Creatinine Ratio 37.6 H (10-20) Glucose 261 H (70-99(Fasting)) mg/dl Troponin I High Sens 40.4 H (0-14) pg/ml Diagnostic Findings Chest X-Ray 11/07/23 17:06 SINGLE VIEW CHEST CLINICAL HISTORY: Dyspnea FINDINGS: An AP, portable, upright chest radiograph is compared to study dated 10/25/2023 and correlated with chest CT dated 09/30/2023. The cardiomediastinal silhouette is unremarkable noting atherosclerotic calcification of the thoracic aorta. Chronic interstitial thickening is similar to previous. There is bibasilar scarring/atelectasis. No airspace consolidation or large pleural effusion is identified. No pneumothorax is seen. The skeletal structures are osteopenic. The bony thorax is grossly intact. IMPRESSION: No active disease in the chest. ACT 112: Negative or not required by law. Electronically signed by: Cayetano Espinoza M.D. 11/07/2023 5:20 PM ECG Additional Comments: Sinus tachycardia Possible Anterior infarct (cited on or before 28-JUL-2023) Abnormal ECG When compared with ECG of 25-OCT-2023 11:57, No significant change was found Code Status & VTE Plan Code Status Full code VTE Prophylaxis Plan VTE Prophylaxis will be ordered: Yes Supervising Physician Co-Signing Physician Notes I personally saw and examined the patient. I verified all rosario points and agree with Amari Macias PA-C with the following exceptions and/or additions: 63 year old female presents to the ER with shortness of breath. Known COPD and CHF. Received IM injection of steroids in the office yesterday which helped. Started oral prednisone today but despite this she continued to get worse. O/E HS RRR, no murmurs, no respiratory distress, poor air movement throughout but no wheezing, Abdo SNT, b/l 1+ pedal edema A/P COPD exacerbation - Solu-medrol, duonebs, formoterol/budesonide, likely can barak- escalate treatment quickly as main this that works is removing her from her home environment. PG Care Time/CCT Total # of Minutes Spent Total Time Spent with Patient: Total time spent is greater than 50% in coordination of care (as documented) at patient's floor/unit and/or counseling patient: C[place] [address] INT INP/OBS CARE 3/75MIN Patient Type Established Medical Decision Making High Complexity Diagnoses Acute exacerbation of chronic obstructive pulmonary disease J44.1 Shortness of breath R06.02 Elevated troponin R79.89 Generalized anxiety disorder F41.1 DM II (diabetes mellitus, type II), controlled E11.9 Opioid dependence in remission F11.21 Substance use status: in remission Chronic heart failure with preserved ejection fraction I50.32 Heart failure chronicity: chronic Tobacco abuse counseling Z71.6 History of pulmonary embolism Z86.711 (6) Opiate dependence Substance use status: in remission Qualified Code(s): F11.21 - Opioid dependence, in remission (7) Heart failure with preserved ejection fraction Heart failure chronicity: chronic Qualified Code(s): I50.32 - Chronic diastolic (congestive) heart failure
[2023-11-07] MEDS ORDERED: DEXTROSE 50% 50 ML SYRINGE IV PRN (19:16)
[2023-11-07] MEDS ORDERED: GLUCOSE 10 TAB/TUBE PO PRN (19:16)
[2023-11-07] MEDS ORDERED: CARBOHYDRATES FOR HYPOGLYCEMIA PO PRN (19:16)
[2023-11-07] MEDS ORDERED: PHARMACY GLYCEMIC MGMT CONSULT PRN (19:16)
[2023-11-07] MEDS ORDERED: GLUCOSE 40% GEL 15 GM TUBE PO PRN (19:16)
[2023-11-07] MEDS ORDERED: GLUCAGON FOR INJ 1 MG VIAL SQ PRN (19:16)
[2023-11-07] MEDS: INSULIN ASPART PER UNIT CHARGE ONE (19:48)
[2023-11-07] MEDS: INSULIN ASPART PER UNIT CHARGE SC SCH (19:50)
[2023-11-07] MEDS: Patient's HEIGHT &/or WEIGHT Needed SCH (20:06)
[2023-11-07] MEDS: ALBUT/IPRATROP 3MG/0.5MG NEB 3 ML VIAL NEB SCH (20:11)
[2023-11-07] MEDS: SODIUM CHLOR 7% 4 ML NEB NEB SCH (20:11)
[2023-11-07 20:25] LABS: Adenovirus PCR Not Detected (NotDetected); Bordetella parapertussis PCR Not Detected (NotDetected); Bordetella pertussis PCR Not Detected (NotDetected); Chlamydia pneumoniae PCR Not Detected (NotDetected); Coronavirus 229E PCR Not Detected (NotDetected); Coronavirus CoV-2 (COVID19)PCR Not Detected (NotDetected); Coronavirus HKU1 PCR Not Detected (NotDetected); Coronavirus NL63 PCR Not Detected (NotDetected); Coronavirus OC43PCR Not Detected (NotDetected); Human Metapneumovirus PCR Not Detected (NotDetected); Influenza A PCR Not Detected (NotDetected); Influenza B PCR Not Detected (NotDetected); Mycoplasma pneumoniae PCR Not Detected (NotDetected); Parainfluenza Virus 1 PCR Not Detected (NotDetected); Parainfluenza Virus 2 PCR Not Detected (NotDetected); Parainfluenza Virus 3 PCR Not Detected (NotDetected); Parainfluenza Virus 4 PCR Not Detected (NotDetected); Respiratory Syncytial VirusPCR Not Detected (NotDetected); Rhinovirus/Enterovirus PCR Not Detected (NotDetected)
[2023-11-07] MEDS ORDERED: INSULIN ASPART PER UNIT CHARGE SC SCH (21:00)
[2023-11-07] MEDS: ALPRAZolam 0.5 MG TABLET PO SCH (21:40)
[2023-11-07] MEDS: BUPRENORPHINE/NALOXONE 8/2 MG TAB SL SCH (21:40)
[2023-11-07] MEDS: guaiFENesin 600 MG TABCR PO SCH (21:40)
[2023-11-07] MEDS: QUEtiapine FUMARATE 200 MG TAB PO SCH (21:40)
[2023-11-07] MEDS: ACETAMINOPHEN 500 MG TAB PO PRN (22:04)
[2023-11-07] MEDS: LANTUS PER UNIT CHARGE SQ SCH (22:05)
[2023-11-08] MEDS: INSULIN ASPART PER UNIT CHARGE SC SCH (02:45)
[2023-11-08 06:19] LABS: Basophils # (auto) 0.02 K/uL (0.00-0.20); Basophils % (auto) 0.1 %; Hematocrit (blood only) 40.6 % (37.0-47.0); Hemoglobin 13.3 g/dl (12.0-16.0); Immature Granulocytes # (auto) 0.16 K/uL (0.01-0.20); Immature Granulocytes % (auto) 1.2 %; Lymphocytes # (auto) 1.22 K/uL (1.20-3.40); Lymphocytes % (auto) 8.8 %; Mean Corpuscular Hemoglobin 27.1 pg (25.0-34.0); Mean Corpuscular Hgb Conc 32.8 g/dL (32.0-36.0); Mean Corpuscular Volume 82.9 fL (80.0-100.0); Mean Platelet Volume 9.3 fL (9.4-12.4); Monocytes # (auto) 0.27 K/uL (0.11-0.59); Monocytes % (auto) 1.9 %; Neutrophils # (auto) 12.24 K/uL (1.40-6.50); Platelet Count 269 K/uL (130-400); RDW Coefficient of Variation 17.9 % (11.5-14.5); White Blood Count 13.91 K/ul (4.8-10.8)
[2023-11-08 06:26] LABS: Albumin Globulin Ratio 1.5 (0.9-2); Albumin Level 3.8 gm/dl (3.4-5.0); BUN Creatinine Ratio 48.8 (10-20); Bilirubin,Total 0.3 mg/dl (0.2-1.0); Calcium 8.9 mg/dl (8.6-10.3); Creatinine Clr Calc Pharmacy 49.6 ml/min; Est GFR (African American) 53.4 ml/min; Est GFR (Non-African American) 46.1 ml/min; Globulin 2.6 gm/dl (2.5-4.0); Magnesium 2.7 mg/dl (1.7-2.4); Potassium 2.9 mmol/L (3.5-5.1); Total Protein 6.4 gm/dl (6.0-8.3)
[2023-11-08] MEDS: BUPRENORPHINE/NALOXONE 8/2 MG TAB SL SCH (06:33)
[2023-11-08] MEDS: ALPRAZolam 0.5 MG TABLET PO SCH (06:33)
[2023-11-08] MEDS: BUDESONIDE 0.5 MG/2 ML VIAL (PULMICORT) NEB SCH (07:24)
[2023-11-08] MEDS: FORMOTEROL 20 MCG/2 ML VIAL NEB SCH (07:24)
[2023-11-08 07:29] LABS: Prothrombin Time 10.7 Seconds (9.0-12.0)
[2023-11-08] MEDS: allopurinoL 100 MG TAB PO SCH (07:53)
[2023-11-08] MEDS: methylPREDNISolone 40 MG in SYRINGE 0 ML IV SCH (07:54)
[2023-11-08] MEDS: ENOXAPARIN 150 MG/ML SYR SQ SCH (07:54)
[2023-11-08] MEDS: POTASSIUM CHLORIDE CRTAB 20 MEQ TABCR PO SCH (08:35)
[2023-11-08] MEDS ORDERED: methylPREDNISolone 125 MG/2 ML VIAL IV SCH (09:00)
[2023-11-08] MEDS: POTASSIUM CHLORIDE / WTR 10 MEQ/100 ML PLCT IV SCH (09:08)
--- NOTE | 2023-11-08 10:08 | Hospitalist Progress Note ---
Date of Service November 08, 2023 Assessment & Plan (1) Acute exacerbation of chronic obstructive pulmonary disease: Plan: Continue parenteral steroid therapy. Scheduled nebulizers. Smoking cessation highly recommended (2) Shortness of breath: Plan: Due to exacerbation COPD. Will use oxygen per nasal cannula as needed to maintain saturation greater than 90% (3) Elevated troponin: Plan: Chronic. No evidence of acute coronary syndrome. Most likely related to demand ischemia (4) Generalized anxiety disorder: Plan: Scheduled dosing of Xanax (5) DM II (diabetes mellitus, type II), controlled: Plan: ADA diet. Glucose is likely to be elevated along with parenteral steroid usage. She is currently on Lantus 40 units twice daily. Sliding scale coverage as needed. (6) Opiate dependence: Plan: Continue buprenorphine (7) Heart failure with preserved ejection fraction: Plan: No overt CHF on admission. Monitor intake and output put. Continue Bumex (8) History of pulmonary embolism: Plan: She takes Lovenox daily due to her history of PE and multiple myeloma. She is currently refusing to take the Lovenox however due to diffuse bruising. Plan Eventual discharge to home hopefully within the next 2 to 3 days Admission and Anticipated Discharge Date Admission Date: November 07, 2023 Subjective Frequently hospitalized 63-year-old white female with recurrent exacerbations of COPD. Apparently she has resumed smoking at home. She returns with exacerbation of COPD but no overt CHF or evidence of pneumonia. She denies productive cough. She does not appear to have pneumonia or bronchitis. She is now on parenteral steroids and scheduled nebulizer treatments. She is complaining of diffuse bruising due to her chronic Lovenox therapy. She has requested that her fluid restriction be discontinued. She flatly refuses to receive parenteral potassium because it hi. Oral potassium therapy has been started. Glucose 140 this morning. Xanax is being given to control her chronic anxiety Review of Systems 2 Review of Systems: Constitutional-no fever or chills ENT-no blurred vision, no double vision, no epistaxis, no sore throat Respiratory-no cough. Shortness of breath at rest and with exertion. Wheezing. No sputum production Cardiac-no palpitations, no chest pain, no syncope GI-no nausea, vomiting, diarrhea, melena, hematochezia -no urinary retention, no urinary incontinence, no dysuria, no hematuria Musculoskeletal-no joint pain, no muscle tenderness Skin-diffuse bruising on the trunk and upper extremities from chronic Lovenox therapy Neuro-no isolated weakness, no paresthesia Psych-anxious Physical Exam 2 Physical Exam: General-alert and oriented x3, no fever, no chills HEENT-head atraumatic and normocephalic, pupils equal and reactive to light, extraocular muscles intact Neck-no lymphadenopathy or thyromegaly, trachea midline Chest-diminished breath sounds bilaterally with faint bilateral expiratory wheezes. No rhonchi. No inspiratory rales. Cardiacregular rate and rhythm, normal S1 and S2 Abdomen-normal bowel sounds, no hepatosplenomegaly Extremities-no cyanosis, clubbing, or edema Skinextensive ecchymoses noted on upper extremities bilaterally and trunk/abdomen Neuro-cranial nerves II through XII intact, motor and sensory function within normal limits, strength symmetrical, no focal deficits Psych-anxious affect Results & Data Results & Data Vital Signs (Past 12 Hours) Vital Signs Temp Pulse Resp BP Pulse Ox O2 Del Method 11/08/23 08:15 Room Air 11/08/23 07:28 36.5 C 92 H 18 146/95 H 97 Room Air 11/08/23 07:21 94 H 16 92 Room Air Laboratory Results 11/08/23 05:19 11/08/23 05:19 PG Care Time/CCT Total # of Minutes Spent Total Time Spent with Patient: Total time spent is greater than 50% in coordination of care (as documented) at patient's floor/unit and/or counseling patient: Coding Level of Care Code 41919 SUB INP/OBS CARE 3/50MIN Diagnoses Acute exacerbation of chronic obstructive pulmonary disease J44.1 Shortness of breath R06.02 Elevated troponin R79.89 Generalized anxiety disorder F41.1 DM II (diabetes mellitus, type II), controlled E11.9 Opioid dependence in remission F11.21 Substance use status: in remission Chronic heart failure with preserved ejection fraction I50.32 Heart failure chronicity: chronic History of pulmonary embolism Z86.711 (6) Opiate dependence Substance use status: in remission Qualified Code(s): F11.21 - Opioid dependence, in remission (7) Heart failure with preserved ejection fraction Heart failure chronicity: chronic Qualified Code(s): I50.32 - Chronic diastolic (congestive) heart failure
--- NOTE | 2023-11-08 12:58 | Electrocardiogram Report ---
Test Reason : Blood Pressure : / mmHG Vent. Rate : 109 BPM Atrial Rate : 109 BPM P-R Int : 142 ms QRS Dur : 070 ms QT Int : 318 ms P-R-T Axes : 048 011 038 degrees QTc Int : 428 ms Sinus tachycardia Possible Anterior infarct (cited on or before 28-JUL-2023) Abnormal ECG When compared with ECG of 25-OCT-2023 11:57, No significant change was found Confirmed by José Miguel Gotti ([id number]) on 11/08/2023 12:57:41 PM Referred By: REFERRED SELF Confirmed By:José Miguel Gotti
[2023-11-08] MEDS ORDERED: Nursing to Pharmacy Communication SCH (13:00)
[2023-11-08] MEDS: BUMETANIDE 1 MG TAB PO SCH (13:36)
[2023-11-08] MEDS ORDERED: BUMETANIDE 1 MG TAB PO SCH (17:00)
[2023-11-08] MEDS: INSULIN HUMAN NPH SC SCH (21:46)
[2023-11-09 07:47] LABS: Basophils # (auto) 0.02 K/uL (0.00-0.20); Basophils % (auto) 0.1 %; Eosinophils # (auto) 0.01 K/uL (0.00-0.50); Eosinophils % (auto) 0.1 %; Hematocrit (blood only) 41.8 % (37.0-47.0); Hemoglobin 13.4 g/dl (12.0-16.0); Immature Granulocytes # (auto) 0.31 K/uL (0.01-0.20); Immature Granulocytes % (auto) 1.9 %; Lymphocytes # (auto) 1.24 K/uL (1.20-3.40); Lymphocytes % (auto) 7.7 %; Mean Corpuscular Hemoglobin 26.9 pg (25.0-34.0); Mean Corpuscular Hgb Conc 32.1 g/dL (32.0-36.0); Mean Corpuscular Volume 83.9 fL (80.0-100.0); Mean Platelet Volume 9.6 fL (9.4-12.4); Monocytes # (auto) 0.38 K/uL (0.11-0.59); Monocytes % (auto) 2.3 %; Neutrophils # (auto) 14.23 K/uL (1.40-6.50); Neutrophils % (auto) 87.9 %; Platelet Count 271 K/uL (130-400); RDW Coefficient of Variation 17.5 % (11.5-14.5); RDW Standard Deviation 53.1 fL (36.4-46.3); Red Blood Count 4.98 M/uL (4.20-5.40); White Blood Count 16.19 K/ul (4.8-10.8)
[2023-11-09 08:08] LABS: Calcium 9.1 mg/dl (8.6-10.3); Potassium 3.4 mmol/L (3.5-5.1)
[2023-11-09 08:14] LABS: BUN Creatinine Ratio 49.6 (10-20); Est GFR (African American) 59.1 ml/min
--- NOTE | 2023-11-09 10:36 | Hospitalist Progress Note ---
Date of Service November 09, 2023 Assessment & Plan (1) Acute exacerbation of chronic obstructive pulmonary disease: Plan: Continue parenteral steroid therapy. Dosage taper down to every 12 hours today, November 08. Continue scheduled nebulizers. Smoking cessation highly recommended (2) Shortness of breath: Plan: Due to exacerbation COPD. Will use oxygen per nasal cannula as needed to maintain saturation greater than 90% (3) Elevated troponin: Plan: Chronic. No evidence of acute coronary syndrome. Most likely related to demand ischemia (4) Generalized anxiety disorder: Plan: Scheduled dosing of Xanax (5) DM II (diabetes mellitus, type II), controlled: Plan: ADA diet. Glucose much improved after switching from Lantus to insulin NPH. Continue sliding scale coverage. She is noncompliant with her diet however (6) Opiate dependence: Plan: Continue buprenorphine (7) Heart failure with preserved ejection fraction: Plan: No overt CHF on admission. Monitor intake and output put. Continue Bumex (8) History of pulmonary embolism: Plan: She takes Lovenox daily due to her history of PE and multiple myeloma. She is currently refusing to take the Lovenox however due to diffuse bruising. (9) Right knee pain: Plan: Due to underlying degenerative joint disease as seen on x-ray October 26. No evidence of acute gout at this time. She is on parenteral steroid therapy which will help Plan Eventual discharge to home hopefully within the next 2 to 3 days Admission and Anticipated Discharge Date Admission Date: November 07, 2023 Subjective She developed right knee pain last evening without injury. Clinical examination negative for effusion erythema or tenderness. She recently had an x-ray done on October 26 which revealed underlying degenerative joint disease. She is already on Solu-Medrol for her lungs which will also help her knee. There is no indication for colchicine at this time. Solu-Medrol has been tapered down to every 12 hour dosing. Potassium has improved to 3.4. Review of Systems 2 Review of Systems: Constitutional-no fever or chills ENT-no blurred vision, no double vision, no epistaxis, no sore throat Respiratory-no cough. Shortness of breath at rest and with exertion. Wheezing. No sputum production Cardiac-no palpitations, no chest pain, no syncope GI-no nausea, vomiting, diarrhea, melena, hematochezia -no urinary retention, no urinary incontinence, no dysuria, no hematuria Musculoskeletal-right knee pain. No muscle tenderness Skin-diffuse bruising on the trunk and upper extremities from chronic Lovenox therapy Neuro-no isolated weakness, no paresthesia Psych-anxious Physical Exam 2 Physical Exam: General-alert and oriented x3, no fever, no chills HEENT-head atraumatic and normocephalic, pupils equal and reactive to light, extraocular muscles intact Neck-no lymphadenopathy or thyromegaly, trachea midline Chest-diminished breath sounds bilaterally with faint bilateral expiratory wheezes. No rhonchi. No inspiratory rales. Cardiacregular rate and rhythm, normal S1 and S2 Abdomen-normal bowel sounds, no hepatosplenomegaly Extremities-no cyanosis, clubbing, or edema. Right knee looks normal with no effusion, erythema, warmth Skinextensive ecchymoses noted on upper extremities bilaterally and trunk/abdomen Neuro-cranial nerves II through XII intact, motor and sensory function within normal limits, strength symmetrical, no focal deficits Psych-anxious affect Results & Data Results & Data Vital Signs (Past 12 Hours) Vital Signs Temp Pulse Pulse Resp BP Pulse Ox O2 Del Method 11/09/23 07:40 36.4 C L 89 20 152/82 H 95 Room Air 11/09/23 07:30 86 16 94 Room Air Laboratory Results 11/09/23 07:24 11/09/23 07:24 PG Care Time/CCT Total # of Minutes Spent Total Time Spent with Patient: Total time spent is greater than 50% in coordination of care (as documented) at patient's floor/unit and/or counseling patient: Coding Level of Care Code 91892 SUB INP/OBS CARE 3/50MIN Diagnoses Acute exacerbation of chronic obstructive pulmonary disease J44.1 Shortness of breath R06.02 Elevated troponin R79.89 Generalized anxiety disorder F41.1 DM II (diabetes mellitus, type II), controlled E11.9 Opioid dependence in remission F11.21 Substance use status: in remission Chronic heart failure with preserved ejection fraction I50.32 Heart failure chronicity: chronic History of pulmonary embolism Z86.711 Right knee pain M25.561 (6) Opiate dependence Substance use status: in remission Qualified Code(s): F11.21 - Opioid dependence, in remission (7) Heart failure with preserved ejection fraction Heart failure chronicity: chronic Qualified Code(s): I50.32 - Chronic diastolic (congestive) heart failure
[2023-11-09] MEDS: metOLazone 2.5 MG TABLET PO STA (11:19)
[2023-11-09] MEDS ORDERED: POLYETHYLENE (MIRALAX) 17 GM PACK PO PRN (19:20)
[2023-11-09] MEDS: methylPREDNISolone 40 MG in SYRINGE 0 ML IV SCH (20:33)
[2023-11-10 06:57] LABS: Basophils # (auto) 0.02 K/uL (0.00-0.20); Basophils % (auto) 0.1 %; Hematocrit (blood only) 44.7 % (37.0-47.0); Hemoglobin 14.4 g/dl (12.0-16.0); Immature Granulocytes # (auto) 0.29 K/uL (0.01-0.20); Immature Granulocytes % (auto) 1.8 %; Lymphocytes # (auto) 1.77 K/uL (1.20-3.40); Lymphocytes % (auto) 10.7 %; Mean Corpuscular Hemoglobin 26.7 pg (25.0-34.0); Mean Corpuscular Hgb Conc 32.2 g/dL (32.0-36.0); Mean Corpuscular Volume 82.8 fL (80.0-100.0); Mean Platelet Volume 9.1 fL (9.4-12.4); Monocytes # (auto) 0.59 K/uL (0.11-0.59); Monocytes % (auto) 3.6 %; Neutrophils % (auto) 83.8 %; Platelet Count 256 K/uL (130-400); RDW Coefficient of Variation 17.8 % (11.5-14.5); RDW Standard Deviation 50.8 fL (36.4-46.3); White Blood Count 16.47 K/ul (4.8-10.8)
[2023-11-10 07:27] LABS: BUN Creatinine Ratio 59.6 (10-20); Calcium 9.3 mg/dl (8.6-10.3); Creatinine Clr Calc Pharmacy 59.7 ml/min; Est GFR (African American) 66.7 ml/min; Est GFR (Non-African American) 57.5 ml/min; Potassium 2.9 mmol/L (3.5-5.1)
[2023-11-10] MEDS: SOD PHOSPHATE/SOD BIPHOSPHATE ENEMA 132 ML BTL PR STA (09:09)
--- NOTE | 2023-11-10 17:18 | Hospitalist Progress Note ---
Date of Service November 10, 2023 Assessment & Plan (1) Acute exacerbation of chronic obstructive pulmonary disease: Plan: Continue parenteral steroid therapy. Has been on Solu-Medrol 40 mg twice daily since 11/08. Will reduce frequency to once daily dosing starting tomorrow. Continue scheduled nebulizers. Smoking cessation highly recommended (2) Shortness of breath: Plan: Due to exacerbation COPD. Will use oxygen per nasal cannula as needed to maintain saturation greater than 90% (3) Elevated troponin: Plan: Chronic. No evidence of acute coronary syndrome. Most likely related to demand ischemia (4) Generalized anxiety disorder: Plan: Scheduled dosing of Xanax (5) DM II (diabetes mellitus, type II), controlled: Plan: ADA diet. Glucose much improved after switching from Lantus to insulin NPH. Continue sliding scale coverage. She is noncompliant with her diet however (6) Opiate dependence: Plan: Continue buprenorphine (7) Heart failure with preserved ejection fraction: Plan: No overt CHF on admission. Monitor intake and output put. Continue Bumex (8) History of pulmonary embolism: Plan: She takes Lovenox daily due to her history of PE and multiple myeloma. She is c urrently refusing to take the Lovenox however due to diffuse bruising. (9) Right knee pain: Plan: Due to underlying degenerative joint disease as seen on x-ray October 26. No evidence of acute gout at this time. She is on parenteral steroid therapy which will help Plan Eventual discharge to home hopefully within the next 2 to 3 days Admission and Anticipated Discharge Date Admission Date: November 07, 2023 Subjective Patient still complains of shortness of breath on exertion. Review of Systems Review of Systems: All systems reviewed & are unremarkable except as noted in Subjective Physical Exam Physical Exam: General: Awake, conversant. Cushingoid features noted Heart: S1, S2/regular rate and rhythm, no murmur rubs or gallops Lungs: Clear to auscultation bilaterally. Normal effort. No wheezes heard. Abdomen: Soft/nontender/nondistended. No hepatosplenomegaly Extremities: No clubbing/cyanosis. No edema Behavior: Appropriate, cooperative Results & Data Results & Data Vital Signs (Past 12 Hours) Vital Signs Temp Pulse Pulse Resp BP Pulse Ox O2 Del Method 11/10/23 14:57 98 H 15 94 Room Air 11/10/23 14:49 36.9 C 97 H 18 128/89 92 Room Air 11/10/23 11:38 100 H 18 94 Room Air 11/10/23 08:14 Room Air 11/10/23 07:31 89 17 96 Room Air 11/10/23 07:00 36.4 C L 83 16 144/94 H 100 Nebulizer FiO2 11/10/23 14:57 21 11/10/23 14:49 11/10/23 11:38 11/10/23 08:14 11/10/23 07:31 11/10/23 07:00 Laboratory Results Abnormal lab results 11/09/23 11/10/23 11/10/23 Range/Units 21:24 06:24 07:46 WBC 16.47 H (4.8-10.8) K/ul RDW Std Deviation 50.8 H (36.4-46.3) fL RDW Coeff of Malick 17.8 H (11.5-14.5) % MPV 9.1 L (9.4-12.4) fL Neut # (Auto) 13.80 H (1.40-6.50) K/uL Immature Gran # (Auto) 0.29 H (0.01-0.20) K/uL Potassium 2.9 L (3.5-5.1) mmol/L Chloride 90 L (98-107) mmol/L Carbon Dioxide 37 H (21-32) mmol/L BUN 62 H (6-23) mg/dl BUN/Creatinine Ratio 59.6 H (10-20) Glucose 135 H (70-99(Fasting)) mg/dl POC Glucose 260 H 128 H (70-99) mg/dl 11/10/23 11/10/23 Range/Units 11:40 16:27 WBC (4.8-10.8) K/ul RDW Std Deviation (36.4-46.3) fL RDW Coeff of Malick (11.5-14.5) % MPV (9.4-12.4) fL Neut # (Auto) (1.40-6.50) K/uL Immature Gran # (Auto) (0.01-0.20) K/uL Potassium (3.5-5.1) mmol/L Chloride (98-107) mmol/L Carbon Dioxide (21-32) mmol/L BUN (6-23) mg/dl BUN/Creatinine Ratio (10-20) Glucose (70-99(Fasting)) mg/dl POC Glucose 164 H 176 H (70-99) mg/dl PG Care Time/CCT Total # of Minutes Spent Total Time Spent with Patient: Total time spent is greater than 50% in coordination of care (as documented) at patient's floor/unit and/or counseling patient: Coding Level of Care Code 32790 SUB INP/OBS CARE 2/35MIN Diagnoses Acute exacerbation of chronic obstructive pulmonary disease J44.1 Shortness of breath R06.02 Elevated troponin R79.89 Generalized anxiety disorder F41.1 DM II (diabetes mellitus, type II), controlled E11.9 Opioid dependence in remission F11.21 Substance use status: in remission Chronic heart failure with preserved ejection fraction I50.32 Heart failure chronicity: chronic History of pulmonary embolism Z86.711 Right knee pain M25.561 (6) Opiate dependence Substance use status: in remission Qualified Code(s): F11.21 - Opioid dep endence, in remission (7) Heart failure with preserved ejection fraction Heart failure chronicity: chronic Qualified Code(s): I50.32 - Chronic diastolic (congestive) heart failure
[2023-11-11] MEDS: methylPREDNISolone 40 MG in SYRINGE 0 ML IV SCH (07:22)
[2023-11-11] MEDS: POTASSIUM CHLORIDE CRTAB 20 MEQ TABCR PO STA ×2 (07:29→10:25)
[2023-11-11] MEDS: INSULIN HUMAN NPH SC SCH (08:21)
[2023-11-11] MEDS: POTASSIUM CHLORIDE / WTR 10 MEQ/100 ML PLCT IV SCH ×2 (08:25→12:52)
[2023-11-11 09:27] LABS: BUN Creatinine Ratio 56.8 (10-20); Calcium 9.2 mg/dl (8.6-10.3); Creatinine Clr Calc Pharmacy 55.9 ml/min; Est GFR (African American) 61.6 ml/min; Est GFR (Non-African American) 53.2 ml/min; Potassium 2.6 mmol/L (3.5-5.1)
[2023-11-11] MEDS: IBUPROFEN 200 MG TAB PO STA ×2 (15:29→21:22)
--- NOTE | 2023-11-11 15:59 | Hospitalist Progress Note ---
Date of Service November 11, 2023 Assessment & Plan (1) Acute exacerbation of chronic obstructive pulmonary disease: Plan: Continue parenteral steroid therapy. Continue Solu-Medrol 40 mg once daily. Continue scheduled nebulizers. Smoking cessation highly recommended Likely discharge 11/12 (2) Shortness of breath: Plan: Due to exacerbation COPD. Will use oxygen per nasal cannula as needed to maintain saturation greater than 90% (3) Elevated troponin: Plan: Chronic. No evidence of acute coronary syndrome. Most likely related to demand ischemia (4) Generalized anxiety disorder: Plan: Scheduled dosing of Xanax (5) DM II (diabetes mellitus, type II), controlled: Plan: ADA diet. Had a hypoglycemic episode overnight Reduce the dose of NPH (6) Opiate dependence: Plan: Continue buprenorphine (7) Heart failure with preserved ejection fraction: Plan: No overt CHF on admission. Monitor intake and output put. Continue Bumex Patient is asking for metolazone Will hold off since her potassium is very low at 2.6 today. (8) History of pulmonary embolism: Plan: She takes Lovenox daily due to her history of PE and multiple myeloma. She is currently refusing to take the Lovenox however due to diffuse bruising. (9) Right knee pain: Plan: Due to underlying degenerative joint disease as seen on x-ray October 26. No eviden ce of acute gout at this time. She is on parenteral steroid therapy which will help Plan Eventual discharge to home hopefully within the next 2 Admission and Anticipated Discharge Date Admission Date: November 07, 2023 Subjective Patient complains of shortness of breath on exertion. She initially refused the IV potassium but later agreed. Review of Systems Review of Systems: All systems reviewed & are unremarkable except as noted in Subjective Physical Exam Physical Exam: General: Awake, conversant. Cushingoid features noted Heart: S1, S2/regular rate and rhythm, no murmur rubs or gallops Lungs: Clear to auscultation bilaterally. Normal effort. No wheezes heard. Abdomen: Soft/nontender/nondistended. No hepatosplenomegaly Extremities: No clubbing/cyanosis. No edema Behavior: Appropriate, cooperative Results & Data Results & Data Vital Signs (Past 12 Hours) Vital Signs Temp Pulse Pulse Resp BP Pulse Ox O2 Del Method 11/11/23 15:43 95 H 20 95 Room Air 11/11/23 14:42 36.5 C 97 H 18 119/79 97 Room Air 11/11/23 12:08 36.4 C L 101 H 16 114/84 98 Room Air 11/11/23 11:19 96 H 22 95 Room Air 11/11/23 08:00 Room Air 11/11/23 07:41 36.5 C 92 H 16 144/87 H 97 Room Air 11/11/23 07:20 91 H 18 98 Room Air Laboratory Results Abnormal lab results 11/10/23 11/10/23 11/11/23 Range/Units 16:27 20:55 02:18 Sodium (136-145) mmol/L Potassium (3.5-5.1) mmol/L Chloride (98-107) mmol/L Carbon Dioxide (21-32) mmol/L Anion Gap (3-11) BUN (6-23) mg/dl BUN/Creatinine Ratio (10-20) Glucose (70-99(Fasting)) mg/dl POC Glucose 176 H 171 H 53 L* (70-99) mg/dl 11/11/23 11/11/23 11/11/23 Range/Units 06:15 07:31 08:11 Sodium 135 L (136-145) mmol/L Potassium 2.6 L (3.5-5.1) mmol/L Chloride 83 L (98-107) mmol/L Carbon Dioxide 40 H (21-32) mmol/L Anion Gap 12 H (3-11) BUN 63 H (6-23) mg/dl BUN/Creatinine Ratio 56.8 H (10-20) Glucose 159 H (70-99(Fasting)) mg/dl POC Glucose 59 L* 208 H (70-99) mg/dl 11/11/23 Range/Units 11:52 Sodium (136-145) mmol/L Potassium (3.5-5.1) mmol/L Chloride (98-107) mmol/L Carbon Dioxide (21-32) mmol/L Anion Gap (3-11) BUN (6-23) mg/dl BUN/Creatinine Ratio (10-20) Glucose (70-99(Fasting)) mg/dl POC Glucose 117 H (70-99) mg/dl PG Care Time/CCT Total # of Minutes Spent Total Time Spent with Patient: Total time spent is greater than 50% in coordination of care (as documented) at patient's floor/unit and/or counseling patient: Coding Level of Care Code 53245 SUB INP/OBS CARE Diagnoses Acute exacerbation of chronic obstructive pulmonary disease J44.1 Shortness of breath R06.02 Elevated troponin R79.89 Generalized anxiety disorder F41.1 DM II (diabetes mellitus, type II), controlled E11.9 Opioid dependence in remission F11.21 Substance use status: in remission Chronic heart failure with preserved ejection fraction I50.32 Heart failure chronicity: chronic History of pulmonary embolism Z86.711 Right knee pain M25.561 (6) Opiate dependence Substance use status: in remission Qualified Code(s): F11.21 - Opioid dependence, in remission (7) Heart failure with preserved ejection fraction Heart failure chronicity: chronic Qualified Code(s): I50.32 - Chronic diastolic (congestive) heart failure
[2023-11-12 08:34] LABS: BUN Creatinine Ratio 78.4 (10-20); Blood Urea Nitrogen 58 mg/dl (6-23); Calcium 8.5 mg/dl (8.6-10.3); Carbon Dioxide 35 mmol/L (21-32); Chloride 94 mmol/L (98-107); Creatinine Clr Calc Pharmacy 83.9 ml/min; Est GFR (African American) 100.6 ml/min; Est GFR (Non-African American) 86.8 ml/min; Glucose 89 mg/dl (70-99(Fasting))
[2023-11-12] MEDS: INSULIN HUMAN NPH SC SCH (09:04)
[2023-11-12 09:50] LABS: Potassium 3.7 mmol/L (3.5-5.1)
--- NOTE | 2023-11-12 14:24 | Hospitalist Progress Note ---
Date of Service November 12, 2023 Assessment & Plan (1) Acute exacerbation of chronic obstructive pulmonary disease: Plan: Continue parenteral steroid therapy. Continue Solu-Medrol 40 mg once daily. Continue scheduled nebulizers. Smoking cessation highly recommended Switch to p.o. prednisone 11/12 and discharge 11/12. Date of anticipated discharge emphasized (2) Shortness of breath: Plan: Due to exacerbation COPD. Will use oxygen per nasal cannula as needed to maintain saturation greater than 90% (3) Elevated troponin: Plan: Chronic. No evidence of acute coronary syndrome. Most likely related to demand ischemia (4) Generalized anxiety disorder: Plan: Scheduled dosing of Xanax (5) DM II (diabetes mellitus, type II), controlled: Plan: ADA diet. Continue NPH insulin for today Will switch to usual home regimen tomorrow Lantus 68 units every morning (6) Opiate dependence: Plan: Continue buprenorphine (7) Heart failure with preserved ejection fraction: Plan: No overt CHF on admission. Monitor intake and output put. Continue Bumex Potassium 3.7 today Resume metolazone Thursday (8) History of pulmonary embolism: Plan: She takes Lovenox daily due to her history of PE and multiple myeloma. She is currently refusing to take the Lovenox however due to diffuse bruising. (9) Right knee pain: Plan: Due to underlying degenerative joint disease as seen on x-ray October 26. No evidence of acute gout at this time. She is on parenteral steroid therapy which will help Plan Eventual discharge to home hopefully 11/12 Admission and Anticipated Discharge Date Admission Date: November 07, 2023 Subjective Patient still complains of shortness of breath on exertion. She is not wheezing however. She is not using oxygen either. Review of Systems Review of Systems: All systems reviewed & are unremarkable except as noted in Subjective Physical Exam Physical Exam: General: Awake, conversant. Cushingoid features noted Heart: S1, S2/regular rate and rhythm, no murmur rubs or gallops Lungs: Clear to auscultation bilaterally. Normal effort. No wheezes heard. Abdomen: Soft/nontender/nondistended. No hepatosplenomegaly Extremities: No clubbing/cyanosis. No edema Behavior: Appropriate, cooperative Results & Data Results & Data Vital Signs (Past 12 Hours) Vital Signs Temp Pulse Pulse Resp BP BP Pulse Ox 11/12/23 14:05 108 H 20 95 11/12/23 12:57 106 H 20 145/87 H 94 11/12/23 10:57 101 H 20 92 11/12/23 07:23 88 16 91 11/12/23 07:10 36.6 C 83 16 118/76 96 O2 Del Method 11/12/23 14:05 Room Air 11/12/23 12:57 Room Air 11/12/23 10:57 Room Air 11/12/23 07:23 Room Air 11/12/23 07:10 Room Air Laboratory Results Abnormal lab results 11/11/23 11/11/23 11/12/23 Range/Units 16:32 20:22 04:40 Sodium (136-145) mmol/L Chloride (98-107) mmol/L Carbon Dioxide (21-32) mmol/L BUN (6-23) mg/dl BUN/Creatinine Ratio (10-20) POC Glucose 207 H 257 H 117 H (70-99) mg/dl Calcium (8.6-10.3) mg/dl 11/12/23 11/12/23 11/12/23 Range/Units 07:32 09:11 11:17 Sodium 134 L (136-145) mmol/L Chloride 94 L (98-107) mmol/L Carbon Dioxide 35 H (21-32) mmol/L BUN 58 H (6-23) mg/dl BUN/Creatinine Ratio 78.4 H (10-20) POC Glucose 132 H (70-99) mg/dl Calcium 8.5 L (8.6-10.3) mg/dl PG Care Time/CCT Total # of Minutes Spent Total Time Spent with Patient: Total time spent is greater than 50% in coordination of care (as documented) at patient's floor/unit and/or counseling patient: Coding Level of Care Code 23927 SUB INP/OBS CARE 2/35MIN Diagnoses Acute exacerbation of chronic obstructive pulmonary disease J44.1 Shortness of breath R06.02 Elevated troponin R79.89 Generalized anxiety disorder F41.1 DM II (diabetes mellitus, type II), controlled E11.9 Opioid dependence in remission F11.21 Substance use status: in remission Chronic heart failure with preserved ejection fraction I50.32 Heart failure chronicity: chronic History of pulmonary embolism Z86.711 Right knee pain M25.561 (6) Opiate dependence Substance use status: in remission Qualified Code(s): F11.21 - Opioid dependence, in remission (7) Heart failure with preserved ejection fraction Heart failure chronicity: chronic Qualified Code(s): I50.32 - Chronic diastolic (congestive) heart failure
[2023-11-13] MEDS ORDERED: predniSONE 20 MG TAB PO SCH (09:00)
[2023-11-13] MEDS ORDERED: metOLazone 2.5 MG TABLET PO SCH (09:00)
[2023-11-13] MEDS ORDERED: LANTUS PER UNIT CHARGE SC SCH (09:00)
== END 2023-11-13 14:45 | disposition home or self-care (01) | DRG 190 ==
LOC: ED 16:50 → SUATTDRO 18:38 → 3E 18:38

== ENCOUNTER 2023-11-13 20:44 | Inpatient (IN) ==
[2023-11-13 21:31] LABS: Hematocrit (blood only) 42.7 % (37.0-47.0); Hemoglobin 13.9 g/dl (12.0-16.0); Mean Corpuscular Hemoglobin 26.8 pg (25.0-34.0); Mean Corpuscular Hgb Conc 32.6 g/dL (32.0-36.0); Mean Corpuscular Volume 82.4 fL (80.0-100.0); Mean Platelet Volume 10.4 fL (9.4-12.4); Platelet Count 253 K/uL (130-400); RDW Coefficient of Variation 17.1 % (11.5-14.5); RDW Standard Deviation 50.8 fL (36.4-46.3); Red Blood Count 5.18 M/uL (4.20-5.40); White Blood Count 23.39 K/ul (4.8-10.8)
[2023-11-13 21:47] LABS: Basophils # (auto) 0.04 K/uL (0.00-0.20); Basophils % (auto) 0.2 %; Eosinophils # (auto) 0.01 K/uL (0.00-0.50); Immature Granulocytes # (auto) 0.39 K/uL (0.01-0.20); Immature Granulocytes % (auto) 1.7 %; Lymphocytes # (auto) 1.76 K/uL (1.20-3.40); Lymphocytes % (auto) 7.5 %; Monocytes # (auto) 0.71 K/uL (0.11-0.59); Neutrophils # (auto) 20.48 K/uL (1.40-6.50); Neutrophils % (auto) 87.6 %
[2023-11-13 21:49] LABS: Alanine Aminotransferase 24 U/L (7-52); Albumin Globulin Ratio 1.5 (0.9-2); Albumin Level 3.8 gm/dl (3.4-5.0); Alkaline Phosphatase 77 U/L (34-104); Anion Gap 12 (3-11); Aspartate Aminotransferase 17 U/L (13-39); BUN Creatinine Ratio 39.4 (10-20); Bilirubin,Total 0.4 mg/dl (0.2-1.0); Blood Urea Nitrogen 37 mg/dl (6-23); Calcium 8.3 mg/dl (8.6-10.3); Carbon Dioxide 32 mmol/L (21-32); Chloride 90 mmol/L (98-107); Est GFR (African American) 75.4 ml/min; Globulin 2.6 gm/dl (2.5-4.0); Glucose 275 mg/dl (70-99(Fasting)); Potassium 3.5 mmol/L (3.5-5.1); Sodium 134 mmol/L (136-145); Total Protein 6.4 gm/dl (6.0-8.3)
[2023-11-13 21:54] LABS: Troponin I High Sensitivity 44.6 pg/ml (0-14)
[2023-11-13 22:04] LABS: Partial Thromboplastin Ratio 0.9; Partial Thromboplastin Time 23 Seconds (21-31); Prothrombin Time 10.7 Seconds (9.0-12.0)
--- OUTSIDE RECORDS SUMMARY | 2023-11-13 22:28 | External Medical Summary | Continuity of Care Document ---
Author Name Unknown Organization [address] [place] [address] [id number] Care Team Providers Care Broadcast Supervisor Name Role Phone Radha Barboza Primary Care Physician [phone] [id number] Date(s): 11/06/23 - 11/06/23 [facility] Medical [facility] [address] [facility] [address] [place] [address] [phone] Encounter Diagnosis Hypokalemia(Final) - Discharge Disposition: Home or Self Care Attending Physician: ELENA Barboza Kimberly A Allergies, Adverse Reactions, Alerts Substance Criticality Severity Reaction Reaction Severity Status codeine Active iodine topical Activ e Phenergan Unable to assess criticality Moderate Itchy Rash Active metFORMIN Angioedema Active shellfish Active Benedryl Allergy Sinus Active oral contrast dye SOB - Shor tness of breath Active Immunizations Given and Recorded [...] Refills: 0, 32G x , Pharmacy:[facility]/pharmacy #[id number] Start Date: 06/30/23 Status: Ordered allopurinol 100 mg oral tablet TAKE 100 MG ORALLY DAILY IN THE MORNING Start Date: 11/03/23 Status: Ordered ALPRAZolam 0.5 mg oral tablet [...] [id number] Start Date: 03/09/23 Status: Ordered CeleXA Start: 11/03/23 11:27:00 AM EDT Start Date: 11/03/23 Status: Ordered colchicine 0.6 mg oral tablet TAKE 2 TABLETS BY MOUTH ONCE, THEN TAKE 1 TABLET TWICE A DAY FOR 3 DAYS NEEDED FOR GOUT ATTACKS Start Date: 11/03/23 Status: Ordered Dexcom G6 Metal Base Blocker Kit Start: 10/11/23 8:34:00 PM EDT, See Instructions, Disp# 1 kit, Test three times daily, Note to Pharmacy: Dx E11.65, Pharmacy: [facility] #[id number] Start Date: 10/11/23 Status: Ordered Dexcom G6 Sensor Kit Start: 10/11/23 8:35:00 PM EDT, See Instructions, Disp# 3 kit, Refills: 5, Test three times daily, Note to Pharmacy: Dx E11.65, Pharmacy: [facility]/pharmacy #[id number] Start Date: 10/11/23 Status: Ordered Dexcom G6 Transmitter Kit Start: 10/11/23 8:36:00 PM EDT, See Instructions, Disp# 1 kit, Test three times daily, Pharmacy: [facility]/pharmacy #[id number] Start Date: 10/11/23 Status: Ordered Dexcom G7 Metal Base Blocker Start: 10/07/23 11:45:00 AM EDT, See Instructions, Disp# 1 kit, Check three times daily, Note to Pharmacy: Uncontrolled DM2; E11.65, Pharmacy: [facility] #[id number] Start Date: 10/07/23 Status: Ordered Dexcom G7 Sensor Start: 10/07/23 11:47:00 AM EDT, See Instructions, Disp# 3 kit, Refills: 3, Test three times daily, Note to Pharmacy: E11.65, Pharmacy: [facility] #[id number] Start Date: 10/07/23 Status: Ordered enoxaparin 150 mg/mL injectable solution Start: 06/24/23 9:03:00 AM EST, 1 mL, subQ, Daily, Disp# 30 mL, Refills: 11, Pharmacy: [facility] #[id number] Start Date: 06/24/23 Status: Ordered fluticasone [...] as needed for wheezing, Pharmacy: [facility]/pharmacy #[id number] Start Date: 08/26/23 Status: Ordered metOLazone 2.5 mg oral tablet Start: 11/06/23 11:22:00 AM EDT, See Instructions, Disp# 15 tab, Refills: 1, TAKE 1 TABLET Ana Garcias, Pharmacy: [facility]/pharmacy #[id number] Start Date: 11/06/23 Status: Ordered NovoLOG FlexPen 100 units/mL injectable solution Start: 02/17/23 3:10:00 PM EDT, 10 unit =, subQ, ac, Disp# 15 mL, Refills: 5, Pharmacy: [facility]/pharmacy #[id number] Start Date: 02/17/23 Status: Ordered ondansetron 4 mg oral tablet, disintegrating Start: 08/26/23 4:23:00 PM EDT, 1 tab, PO, q8h, Disp# 30 tab, Refills: 1, PRN: as needed for nausea/vomiting, [facility]: [id number] Start Date: 08/26/23 Status: Ordered Ozempic (0.25 mg or 0.5 mg dose) 2 mg/3 mL subQ pen Start: 11/02/23 8:51:00 AM EDT, See Instructions, Disp# 3 unknown unit, Refills: 1, INJECT 0.25MG SUBCUTANEOUSLY EVERY 7 DAYS X4 WEEKS,THEN INCREASE TO 0.5MG EVERY 7 DAYS, Pharmacy: [facility] STORE [id number] Start Date: 11/02/23 Status: Ordered Potassium Chloride (Eqv-K-Tab) 20 mEq oral tablet, extended release Start: 07/14/23 2:21:00 PM EDT, 1 tab, PO, tid, Disp# 90 tab, Refills: 3, [id number] Start Date: 07/14/23 Stop Date: 11/11/23 Status: Ordered predniSONE 10 mg oral tablet Start: 11/06/23 11:26:00 AM EDT, See Instructions, Disp# 75 tab, 6 qd x 3, 5 qd x 3, 4 qd x 3, 3 qd x 3, 2 qd x 3, 10 qd x 3, then remain on 5mg daily x 1wk, [id number] Start Date: 11/06/23 Status: Ordered predniSONE 10 mg oral tablet X 3 day, TAKE 1 TABLET BY MOUTH EVERY DAY IN THE MORNING Start Date: 11/03/23 Status: Ordered QUEtiapine 200 mg oral tablet Start: 06/22/23 5:20:00 PM EST, 1 tab, PO, Daily, Disp# 90 tab, Refills: 3, [id number] Start Date: 06/22/23 Status: Ordered Suboxone 8 mg-2 mg sublingual film Start: 10/06/23 2:42:00 PM EDT, See Instructions, Disp# 36 patch, Refills: 0, Start at half a film (4mg-1mg) SL BID. Decrease total dose by 2 mg-0.5mg every 2 weeks until dose is tapered to zero and discontinue thereafter. dissolve under the tongue, Pharmacy: [facility]/pharmacy #[id number] Start Date: 10/06/23 Status: Ordered Trelegy Ellipta 200 mcg-62.5 mcg-25 [...] 5, PRN: as needed for wheezing, Pharmacy: [facility]/pharmacy #[id number] Start Date: 08/13/23 Status: Ordered Problem List Condition Confirmation Course [...] Body Site Status Bone marrow biopsy 2013 [facility] Results Laboratory List Name Date Comprehensive Metabolic Panel (COMP META B PANEL) 11/06/23 Most recent to oldest [Reference Range]: 1 eGFR CKD-EPI [>60 mL/min/1.73 m2] 69 mL/ min/1.73 m2 1 (11/06/23 10:23 AM) Estimated CrCl 68.39 mL/min (11/06/23 12:30 PM) Anion Gap [5-14 mmol/L] 9 mmol/L (11/06/23 10:23 AM) Alb [3.5-5.0 g/dL] 4.2 g/dL (11/06/23 10:23 AM) Alk Phos [38-126 unit/L] 117 unit/L (11/06/23 10:23 AM) ALT [<35 unit/L] 28 unit/L (11/06/23 10:23 AM) AST [15-46 unit/L] 37 unit/L (11/06/23 10:23 AM) BUN [7-20 mg/dL] 43 mg/dL *HI* (11/06/23 10:23 AM) Ca [8.4-10.2 mg/dL] 9.2 mg/dL (11/06/23 10:23 AM) Cl- [96-107 mmol/L] 95 mmol/L *LOW* (11/06/23 10:23 AM) HCO3 [22-30 mmol/L] 33 mmol/L *HI* (11/06/23 10:23 AM) Cret [0.60-1.00 mg/dL] 0.93 mg/dL (11/06/23 10:23 AM) Glu [74-106 mg/dL] 131 mg/dL *HI* (11/06/23 10:23 AM) K [3.5-5.1 mmol/L] 3.6 mmol/L (11/06/23 10:23 AM) Na [137-145 mmol/L] 137 mmol/L (11/06/23 10:23 AM) T Bili [0.2-1.3 mg/dL] 0.5 mg/dL (11/06/23 10:23 AM) Prot [6.3-8.2 g/dL] 7.0 g/dL (11/06/23 10:23 AM) 1Result Comment: Testing Performed By: Dept of Pathology [facility], [address] [place] [address] Social History Social History Type Response Smoking Status Current every day li ght smoker Sex Female Patient Care team information Care Team Personnel Name: ELENA Barboza, Radha Bhatai Position: Physician Asst Exmpt - Family Med Member Role: Primary Care Provider Address: Address: [address] [place] [address] [place] Name: MARGARET Dunn Jo Ann M Position: Nurse Pract - Hem/Onc Member Role: Lifetime Relationship Address: Address: [address] [place] [address] Care Team Related Persons Name: MO SAMUEL Address: [facility]
--- OUTSIDE RECORDS SUMMARY | 2023-11-13 22:28 | External Medical Summary | Continuity of Care Document ---
Author Name Unknown Organization [place] [id number] [place] [id number] Care Team Providers Care Conditioner Tumbler Name Role Phone Radha Barboza Primary Care Physician [phone] [id number] Date(s): 11/06/23 - 11/06/23 [facility] [address] [facility] [address] [place] [address] [phone] Encounter Diagnosis COPD with exacerbation(Discharge Diagnosis) - 11/06/23 Discharge Disposition: Home or Self Care Attending [...] lancet, Refills: 0, 32G x , [id number] Start Date: 06/30/23 Status: Ordered allopurinol 100 mg oral tablet TAKE 100 MG ORALLY DAILY IN THE MORNING Start Date: 11/03/23 Status: Ordered ALPRAZolam 0.5 mg oral tablet Start: 08/26/23 4:22:00 PM EDT, 1 tab, PO, bid, Disp# 90 tab, Refills: 5, Make take an extra tablet for acute panic attacks. Max 3/day, PRN: as needed for anxiety, [id number], Earliest Fill Date: 09/11/23 Start Date: 08/26/23 Status: Ordered bumetanide 2 mg oral tablet Start: 03/09/23 10:51:00 PM EST, See Instructions, Disp# 360 tab, Refills: 3, TAKE 2 TABLETS BY MOUTH IN THE MORNING AND 2 TABLET AT LUNCHTIME, Pharmacy: [facility] #[id number] Start Date: 03/09/23 Status: Ordered CeleXA Start: 11/03/23 11:27:00 AM EDT Start Date: 11/03/23 Status: Ordered colchicine 0.6 mg oral tablet TAKE 2 TABLETS BY MOUTH ONCE, THEN TAKE 1 TABLET TWICE A DAY FOR 3 DAYS NEEDED FOR GOUT ATTACKS Start Date: 11/03/23 Status: Ordered Dexcom G6 Church Supervisor Kit Start: 10/11/23 8:34:00 PM EDT, See Instructions, Disp# 1 kit, Test three times daily, Note to Pharmacy: Dx E11.65, [id number] Start Date: 10/11/23 Status: Ordered Dexcom G6 Sensor Kit Start: 10/11/23 8:35:00 PM EDT, See Instructions, Disp# 3 kit, Refills: 5, Test three times daily, Note to Pharmacy: Dx E11.65, Pharmacy: [facility]/pharmacy #[id number] Start Date: 10/11/23 Status: Ordered Dexcom G6 Transmitter Kit Start: 10/11/23 8:36:00 PM EDT, See Instructions, Disp# 1 kit, Test three times daily, [id number] Start Date: 10/11/23 Status: Ordered Dexcom G7 Church Supervisor Start: 10/07/23 11:45:00 AM EDT, See Instructions, Disp# 1 kit, Check three times daily, Note to Pharmacy: Uncontrolled DM2; E11.65, Pharmacy: [facility]/pharmacy #[id number] Start Date: 10/07/23 Status: Ordered Dexcom G7 Sensor Start: 10/07/23 11:47:00 AM EDT, See Instructions, Disp# 3 kit, Refills: 3, Test three times daily, Note to Pharmacy: E11.65, Pharmacy: [facility]/pharmacy #[id number] Start Date: 10/07/23 Status: Ordered enoxaparin 150 mg/mL injectable solution Start: 06/24/23 9:03:00 AM EST, 1 mL, subQ, Daily, Disp# 30 mL, Refills: 11, Pharmacy: [facility]/pharmacy #[id number] Start Date: 06/24/23 Status: Ordered fluticasone [...] 3, PRN: as needed for wheezing, Pharmacy: [facility]/pharmacy #[id number] Start Date: 08/26/23 Status: Ordered metOLazone 2.5 mg oral tablet Start: 11/06/23 11:22:00 AM EDT, See Instructions, Disp# 15 tab, Refills: 1, TAKE 1 TABLET Ana Garcias, Pharmacy: [facility]/pharmacy #[id number] Start Date: 11/06/23 Status: Ordered NovoLOG FlexPen 100 units/mL injectable solution Start: 02/17/23 3:10:00 PM EDT, 10 unit =, subQ, ac, Disp# 15 mL, Refills: 5, Pharmacy: [facility]/pharmacy #[id number] Start Date: 02/17/23 Status: Ordered ondansetron 4 mg oral tablet, disintegrating Start: 08/26/23 4:23:00 PM EDT, 1 tab, PO, q8h, Disp# 30 tab, Refills: 1, PRN: as needed for nausea/vomiting, Pharmacy: [facility]/pharmacy #[id number] Start Date: 08/26/23 Status: Ordered Ozempic (0.25 mg or 0.5 mg dose) 2 mg/3 mL subQ pen Start: 11/02/23 8:51:00 AM EDT, See Instructions, Disp# 3 unknown unit, Refills: 1, INJECT 0.25MG SUBCUTANEOUSLY EVERY 7 DAYS X4 WEEKS,THEN INCREASE TO 0.5MG EVERY 7 DAYS, Pharmacy: [facility] ST[facility] [id number] Start Date: 11/02/23 Status: Ordered Potassium Chloride (Eqv-K-Tab) 20 mEq oral tablet, extended release Start: 07/14/23 2:21:00 PM EDT, 1 tab, PO, tid, Disp# 90 tab, Refills: 3, [id number] Start Date: 07/14/23 Stop Date: 11/11/23 Status: Ordered predniSONE 10 mg oral tablet Start: 11/06/23 11:26:00 AM EDT, See Instructions, Disp# 75 tab, 6 qd x 3, 5 qd x 3, 4 qd x 3, 3 qd x 3, 2 qd x 3, 10 qd x 3, then remain on 5mg daily x 1wk, [id number] Start Date: 11/06/23 Status: Ordered predniSONE 10 mg oral tablet X 3 day, TAKE 1 TABLET BY MOUTH EVERY DAY IN THE MORNING Start Date: 11/03/23 Status: Ordered QUEtiapine 200 mg oral tablet Start: 06/22/23 5:20:00 PM EST, 1 tab, PO, Daily, Disp# 90 tab, Refills: 3, [id number] Start Date: 06/22/23 Status: Ordered Suboxone 8 mg-2 mg sublingual film Start: 10/06/23 2:42:00 PM EDT, See Instructions, Disp# 36 patch, Refills: 0, Start at half a film (4mg-1mg) SL BID. Decrease total dose by 2 mg-0.5mg every 2 weeks until dose is tapered to zero and discontinue thereafter. dissolve under the tongue, Pharmacy: [facility]/pharmacy #[id number] Start Date: 10/06/23 Status: Ordered Trelegy Ellipta 200 mcg-62.5 mcg-25 mcg/inh inhalation powder Start: 07/08/22 11:13:00 AM EDT Start Date: 07/08/22 Status: Ordered UltiCare Pen Needle 32G x 4mm Start: 07/08/23 2:51:00 PM EDT, See Instructions, Disp# 100 pen_needle, Refills: 1, Use three times daily, Note to Pharmacy: E11.65, Pharmacy: [facility]/pharmacy #[id number] Start Date: 07/08/23 Status: Ordered Ventolin HFA 90 mcg/inh inhalation aerosol Start: 08/13/23 11:23:00 AM EDT, 2 puff, inhaled, qid, Disp# 8 g, Refills: 5, PRN: as needed for wheezing, Pharmacy: [facility]/pharmacy #[id number] Start Date: 08/13/23 Status: Ordered Mental Status 11/06/23 Barriers to Learning one year None evide nt Mandatory Health Literacy Documentation Yes Health Literacy Communication Barriers N ever Primary Language Danish Problem List Condition Confirmation Course Effective Dates [...] Service Informant COPD with exacerbation Discharge Diagnosis 11/06/23 Non-Specified Procedures Procedure Date Related Diagnosis Body Site Status Bone marrow biopsy 2013 [facility] Vital Signs Most recent to oldest [Reference Range]: 1 Patient Weight 97.1 kg (11/06/23 10:40 AM) Heart Rate 110 bpm (11/06/23 10:40 AM) Respiratory Rate 20 br/min (11/06/23 10:40 AM) Blood Pressure 122/60mmHg (11/06/23 10:40 AM) Cuff Pulse Pressure 62 mmHg (11/06/23 10:40 AM) Social History Social History Type Response Smoking Status Current every day li ght smoker Sex Female Patient Care team information Care Team Personnel Name: ELENA Barboza Kimberly A Position: Physician Asst Ext - Family Med Member Role: Primary Care Provider Address: Address: [address] [facility] [address] [place] [address] Name: MARGARET Dunn Jo Ann M Position: Nurse Pract - Hem/Onc Member Role: Lifetime Relationship Address: Address: [address] [place] [address] YELENA [address] Care Team Related Persons Name: MO SAMUEL Address: [facility]
--- NOTE | 2023-11-13 22:54 | Emergency Department Note ---
Impression & Plan Acute exacerbation of chronic obstructive pulmonary disease ED Provider Note Name: LIANNE SAMUEL Age: 63 Sex: Female Arrives Via: Walk-In Informant: Patient ED Provider: Shabbir Powell MD Chief Complaint: Shortness of breath Impression: As per impressions above Medical Decision Makin-year-old female arrives for evaluation of shortness of breath. Extensive past medical history including recurrent hospitalizations for COPD. Patient was discharged this morning though notes continued worsening breathing throughout the day. She does have quite tight lung sounds on evaluation and is significantly dyspneic with any attempts at ambulation with O2 sats dropping a bit. That said laboratory workup remarkable for mildly elevated white blood cell count consistent with her past medical history as well as being on steroids last few days. She was given hour-long nebulizer appears a bit better but patient continues to note she feels too short of breath for discharge. I discussed this with hospitalist will bring her in for further management. Of note she does have mild worsening atelectasis bilateral lower lungs worse on the right. No clear evidence of infectious etiology at this time will defer to hospitalist though possibly consider underlying fluid overload as well. Patient is already anticoagulated I feel PE is unlikely. Triage/Nursing Notes reviewed by Me External Chart Review by me: Reviewed hospital note from this morning 11/13/2023. Plan at that time was discharged on steroids. Differential:Reactive airway disease, pneumonia, pneumothorax, COPD, CHF, infections, cardiac ischemia, pulmonary embolism, musculoskeletal, gastrointestinal, as well as other pathologies. Vital Signs: reviewed and remarkable for no significant abnormalities Interventions: DuoNeb 1 hour Labs:ED labs Reviewed by me and remarkable for mildly elevated white blood cell count Imagin view chest x-ray as per my interpretation increased atelectasis bilateral lower lungs compared to previous chest x-ray EKG:As per my interpretation. Indication shortness of breath. Sinus tachycardia 105 bpm with PACs and no ischemia. QTc 483. Similar in comparison to November 07, 2023 EKG. Consults:Discussed with Dr. Aguilar of the [facility] hospitalist service who will evaluate and bring in for further management. Plan: Disposition: Hospitalization Condition: Good History of Present Illness: 63-year-old female arrives for evaluation of shortness of breath. Patient with long history of COPD. She has had multiple hospitalizations in the last few months and years. She notes she was discharged this morning not feeling ready for discharge. She states she went out to lunch and was quite short of breath and then after trying to walk to her car this evening she had severe shortness of breath and could not do so. Patient states she is feeling like she just cannot get any air in. This is very similar to previous COPD exacerbations. She denies any falls, trauma, injuries. Patient was hospitalized for several days for the COPD exacerbation. She started oral steroids this morning. She denies any fevers, chills. Does note some mild nausea when she took Zofran at home with moderate improvement. She also had some bilateral ankle discomfort this morning having not taken her colchicine for a few days. This evening she took Motrin and colchicine and states ankle pains are improving. Patient denies any current chest pain, back pain, abdominal pain, leg swelling, calf pain or other concerning signs or symptoms. Patient is on Lovenox daily For history of PE and multiple myeloma. Patient did use nebulizer Atrovent at home without much improvement. Patient also took Xanax at home without much improvement. Past Medical History:See Below Home Medications:See Below Allergies:See Below Vitals:Blood Pressure: 124/91, Pulse 99, RR 21, T 36.8C, O2 96% on RA Physical Exam: GENERAL: Patient is anxious appearing and in mild distress. RESPIRATORY: Diffusely tight lung sounds with moderate dyspnea/tachypnea no overt wheezing appreciated CARDIOVASCULAR: Regular rate and rhythm.No murmur appreciated. GASTROINTESTINAL: Abdomen soft, non-tender, no peritonitis. BACK: No midline tenderness, no CVA tenderness EXTREMITIES: Normal motion all extremities, no cyanosis, trace lower leg edema no calf tenderness palpation. NEUROLOGIC: Alert and oriented. No focal neurologic deficits appreciated SKIN: No rash, no jaundice, no diaphoresis. PSYCH: Appropriate GCS: 15 ED Course: Times/Reassessments: Patient breathing more comfortably though continues to note severe dyspnea and thus hospitalist consulted for further management. Shabbir Powell MD Past Med/Surg History Problem List (Updated 11/14/23 @ 03:57 by Shabbir Powell MD) Acute exacerbation of chronic obstructive pulmonary disease (Acute) Right knee pain DM II (diabetes mellitus, type II), controlled Elevated troponin (Acute) Acute and chronic respiratory failure with hypoxia (Acute) Acute exacerbation of chronic obstructive pulmonary disease (Acute) Gout Leukocytosis (Acute) Chronic hypoxic respiratory failure Acute hypokalemia (Acute) Shortness of breath (Acute) Multiple myeloma Last chemotherapy 2017 Follows with medical oncology in [facility] Diabetes Hypokalemia Heart failure with preserved ejection fraction COPD (chronic obstructive pulmonary disease) (Acute) Shortness of breath (Acute) Generalized anxiety disorder Chronic respiratory failure with hypoxia and hypercapnia Tobacco abuse counseling Chronic hypercapnic respiratory failure Moderate persistent asthma Constipation History of pulmonary embolism Obesity hypoventilation syndrome Chronic anticoagulation Acute bronchitis Pulmonary vascular congestion Right knee pain Nasal fracture Rib fractures (Acute) COPD (chronic obstructive pulmonary disease) (Acute) Medical History Acute exacerbation of chronic obstructive pulmonary disease Tobacco abuse Opiate dependence Dyspnea Acute heart failure with preserved ejection fraction (HFpEF) Asthma Surgical History No pertinent past surgical history Family History Sister Asthma Social History Smoking Status: Light tobacco smoker Tobacco Type: Cigarettes Cigarettes Per Day: 1 cigarette per day; Second Hand Exposure: No; Do You Dip or Chew Tobacco: No; Tobacco Cessation Education Requested by Patient: No Hx Alcohol Use: No Hx Substance Use: No Preferred Language: Dutch Communication Ability: Effective Flask Fitter Required: No Beliefs That Will Affect Care: None Current Living Situation: Family Current Living Situation Comment: lives with sister temporarily Other Information That Helps Us Care for You: No Feels Safe at Home: Yes Safety Concerns: Feels Safe At This Time Assistive Devices: Walker and Wheelchair Allergies Allergies Allergy/AdvReac Type Severity Reaction Status Date / Time codeine Allergy Severe Anaphylaxis Verified 11/14/23 01:37 Iodinated Contrast Media Allergy Severe Anaphylaxis Verified 11/14/23 01:37 shellfish derived Allergy Severe Anaphylaxis Verified 11/14/23 01:37 tramadol Allergy Intermediate ITCHINESS Verified 11/14/23 01:37 iohexol Allergy Unknown CAN'T Verified 11/14/23 01:37 REMEMBER diphenhydramine AdvReac Severe Anxiety Verified 11/14/23 01:37 [From Benadryl] promethazine AdvReac Intermediate Anxiety Verified 07/20/24 01:37 Home Meds Home Medications Medication Instructions Recorded Confirmed buprenorphine 8 mg-naloxone 2 mg 0.5 film sublingual BID 05/14/22 11/14/23 sublingual film nystatin 100,000 unit/gram topical 1 applic topical BID PRN UNDER 05/14/22 11/14/23 powder BREASTS NEEDED. ondansetron HCl 4 mg tablet 4 mg PO Q8H PRN NAUSEA/VOMITING 05/14/22 11/14/23 quetiapine 200 mg tablet 200 mg PO HS 05/14/22 11/14/23 levalbuterol HCl 1.25 mg/3 mL 1.25 mg inhalation TID PRN 01/16/23 11/14/23 solution for nebulization Shortness Of Breath Or Wheezing enoxaparin 150 mg/mL subcutaneous 150 mg subcut UD 05/07/23 11/14/23 syringe albuterol sulfate 90 mcg/actuation 2 puff inhalation UD PRN Shortness 08/30/23 11/14/23 aerosol inhaler Of Breath Or Wheezing guaifenesin 600 mg tablet, 600 mg PO Q12 Congestion 09/11/23 11/14/23 extended release 12 hr (Mucinex) Ozempic Inj 0 mg INJ DIRECTED 11/07/23 11/14/23 insulin aspart U-100 100 unit/mL 0 unit subcut TIDM 11/07/23 11/14/23 (3 mL) subcutaneous pen (Novolog FlexPen U-100 Insulin aspart) metolazone 5 mg tablet 2.5 mg PO 4XD 11/07/23 11/14/23 prednisone 10 mg tablet 0 mg PO .TAPER DIRECTED 11/07/23 11/14/23 Previous Rx's Medication Instructions Recorded alprazolam 0.5 mg tablet 0.5 mg PO TID #14 tabs 08/02/23 fluticasone propionate 50 1 spray intranasal BID nasal 09/15/23 mcg/actuation nasal congestion #0 mL spray,suspension (Flonase Allergy Relief) fluticasone fur. 200 mcg-umeclid 1 ea inhalation QAM #60 ea 09/16/23 62.5 mcg-vilant 25 mcg inhalat.powder (Trelegy Ellipta) levalbuterol tartrate 45 2 puff inhalation Q4 PRN WHEEZE 09/16/23 mcg/actuation aerosol inhaler #15 grams bumetanide 2 mg tablet 2 mg PO BID #60 tabs 09/29/23 insulin glargine 100 unit/mL (3 68 unit (0.68 mL) subcut QAM #15 mL 10/17/23 mL) subcutaneous pen ipratropium bromide 0.02 % 3 ml continuous nebulization QID 10/17/23 solution for inhalation PRN shortness of breath #75 mL potassium chloride 20 mEq 40 meq (2 x 20 mEq) PO TID #180 10/17/23 tablet,extended release(part/cryst) tabs allopurinol 100 mg tablet 100 mg PO QAM #30 tabs 10/30/23 calcium polycarbophil 625 mg 625 mg PO QAM #30 tabs 10/30/23 tablet (Fiber (calcium polycarbophil)) colchicine 0.6 mg tablet (Colcrys) 0.6 mg PO BID PRN gout attacks #60 10/30/23 tabs ibuprofen 200 mg tablet 600 mg (3 x 200 mg) PO TID PRN 10/30/23 pain #30 tabs Results & Data (ED) Vital Signs Vital Signs - 24 hr 11/13/23 20:49 11/13/23 21:56 11/13/23 22:11 Temperature 36.8 C Temperature Source Temporal Artery Scan Pulse Rate 109 H 94 H Pulse Rate [Apical] Pulse Rhythm [Apical] Respiratory Rate 20 Respiratory Effort / Characteristics Respiratory Depth Respiratory Pattern Blood Pressure 138/83 Blood Pressure [Right Arm] Blood Pressure Mean 101 Blood Pressure Mean [Right Arm] Pulse Oximetry 96 96 Oxygen Delivery Method Room Air Room Air Sepsis Recent Fever Within 48 Hours No Sepsis New/Unexplained Change in Mental Status No Sepsis Action Taken by Nursing No Action Required 11/13/23 22:11 11/13/23 22:11 11/13/23 23:30 Temperature Temperature Source Pulse Rate 99 H Pulse Rate [Apical] 99 H 95 H Pulse Rhythm [Apical] Regular Respiratory Rate 21 21 22 Respiratory Effort / Characteristics Non-Labored Spontaneous Spontaneous Labored Respiratory Depth Normal Deep Respiratory Pattern Regular Regular Blood Pressure Blood Pressure [Right Arm] 124/91 139/86 Blood Pressure Mean Blood Pressure Mean [Right Arm] 102 103 Pulse Oximetry 96 96 95 Oxygen Delivery Method Room Air Room Air Room Air Sepsis Recent Fever Within 48 Hours Sepsis New/Unexplained Change in Mental Status Sepsis Action Taken by Nursing 11/14/23 01:22 Temperature Temperature Source Pulse Rate Pulse Rate [Apical] 104 H Pulse Rhythm [Apical] Respiratory Rate 20 Respiratory Effort / Characteristics Non-Labored Spontaneous Respiratory Depth Normal Respiratory Pattern Regular Blood Pressure Blood Pressure [Right Arm] 135/91 Blood Pressure Mean Blood Pressure Mean [Right Arm] 105 Pulse Oximetry 94 Oxygen Delivery Method Room Air Sepsis Recent Fever Within 48 Hours Sepsis New/Unexplained Change in Mental Status Sepsis Action Taken by Nursing Laboratory Data 11/13/23 21:15 11/13/23 21:15 Lab Results 11/13/23 11/13/23 Range/Units 21:15 23:30 WBC 23.39 H (4.8-10.8) K/ul RBC 5.18 (4.20-5.40) M/uL Hgb 13.9 (12.0-16.0) g/dl Hct 42.7 (37.0-47.0) % MCV 82.4 (80.0-100.0) fL MCH 26.8 (25.0-34.0) pg MCHC 32.6 (32.0-36.0) g/dL RDW Std Deviation 50.8 H (36.4-46.3) fL RDW Coeff of Malick 17.1 H (11.5-14.5) % Plt Count 253 (130-400) K/uL MPV 10.4 (9.4-12.4) fL Immature Gran % (Auto) 1.7 % Neut % (Auto) 87.6 % Lymph % (Auto) 7.5 % Twiggs % (Auto) 3.0 % Eos % (Auto) 0.0 % Baso % (Auto) 0.2 % Neut # (Auto) 20.48 H (1.40-6.50) K/uL Lymph # (Auto) 1.76 (1.20-3.40) K/uL Twiggs # (Auto) 0.71 H (0.11-0.59) K/uL Eos # (Auto) 0.01 (0.00-0.50) K/uL Baso # (Auto) 0.04 (0.00-0.20) K/uL Immature Gran # (Auto) 0.39 H (0.01-0.20) K/uL PT 10.7 (9.0-12.0) Seconds INR 1.0 (0.9-1.1) APTT 23 (21-31) Seconds PTT Ratio 0.9 Sodium 134 L (136-145) mmol/L Potassium 3.5 (3.5-5.1) mmol/L Chloride 90 L (98-107) mmol/L Carbon Dioxide 32 (21-32) mmol/L Anion Gap 12 H (3-11) BUN 37 H D (6-23) mg/dl Creatinine 0.94 (0.6-1.2) mg/dl Est Cr Clr Drug Dosing Not Reportable Est GFR ( Amer) 75.4 ml/min Est GFR (Non-Af Amer) 65.0 ml/min BUN/Creatinine Ratio 39.4 H (10-20) Glucose 275 H (70-99(Fasting)) mg/dl Calcium 8.3 L (8.6-10.3) mg/dl Magnesium 1.7 (1.7-2.4) mg/dl Total Bilirubin 0.4 (0.2-1.0) mg/dl AST 17 (13-39) U/L ALT 24 (7-52) U/L Alkaline Phosphatase 77 (34-104) U/L Troponin I High Sens 44.6 H 46.0 H (0-14) pg/ml Total Protein 6.4 (6.0-8.3) gm/dl Albumin 3.8 (3.4-5.0) gm/dl Globulin 2.6 (2.5-4.0) gm/dl Albumin/Globulin Ratio 1.5 (0.9-2) Administered Medications Discontinued Medications Albuterol (Albut/Ipratrop 3mg/0.5mg Neb 3 Ml Vial) 12 ml NEB ONE ONE; Protocol Stop: 11/13/23 22:52 Last Admin: 11/13/23 23:34 Dose: 12 ml Documented By: DIANA Alprazolam (Alprazolam 0.5 Mg Tablet) 0.5 mg PO NOW STA Stop: 11/14/23 01:44 Last Admin: 11/14/23 02:02 Dose: 0.5 mg Documented By: DIANA Furosemide (Furosemide 40 Mg/4 Ml Vial) 40 mg IV ONE ONE Stop: 11/14/23 00:55 Last Admin: 11/14/23 01:16 Dose: 40 mg Documented By: DIANA Guaifenesin (Guaifenesin 600 Mg Tabcr) 600 mg PO NOW STA Stop: 11/14/23 01:44 Last Admin: 11/14/23 02:02 Dose: 600 mg Documented By: DIANA Methylprednisolone (Methylprednisolone 125 Mg/2 Ml Vial) 40 mg IV NOW STA Stop: 11/14/23 01:24 Last Admin: 11/14/23 02:02 Dose: 40 mg Documented By: DIANA Potassium Chloride (Potassium Chloride Crtab 20 Meq Tabcr) 40 meq PO NOW STA Stop: 11/14/23 00:32 Last Admin: 11/14/23 01:16 Dose: 40 meq Documented By: DIANA Quetiapine Fumarate (Quetiapine Fumarate 200 Mg Tab) 200 mg PO NOW STA Stop: 11/14/23 01:44 Last Admin: 11/14/23 03:20 Dose: 200 mg Documented By: CAT Discharge Plan Visit Data Chief Complaint: Shortness of Breath/Dyspnea Stated Complaint: SOB, PAIN, SWEATING, CANNOT BREATH ED Provider: Shabbir Powell Discharge Problem: Acute exacerbation of chronic obstructive pulmonary disease Patient Disposition: Admitted As Inpatient Discharge Instructions Interventions: ED Discharge Assessment Last Done: 11/14/23 02:08
[2023-11-13] MEDS: ALBUT/IPRATROP 3MG/0.5MG NEB 3 ML VIAL NEB ONE (23:34)
[2023-11-14] MEDS: POTASSIUM CHLORIDE CRTAB 20 MEQ TABCR PO STA (01:16)
[2023-11-14] MEDS: FUROSEMIDE 40 MG/4 ML VIAL IV ONE (01:16)
--- NOTE | 2023-11-14 01:24 | History & Physical Report ---
Date of Service November 14, 2023 Assessment & Plan (1) Acute heart failure with preserved ejection fraction (HFpEF): (2) Acute and chronic respiratory failure with hypoxia: (3) Chronic respiratory failure with hypoxia and hypercapnia: (4) Obesity hypoventilation syndrome: (5) History of pulmonary embolism: (6) Diabetes: (7) Generalized anxiety disorder: Plan Acute heart failure with preserved ejection fraction/acute on chronic respiratory failure with hypoxia/obesity hypoventilation syndrome- Patient with ongoing issues regarding COPD Examination and findings are more consistent with heart failure exacerbation at this point Will give furosemide 40 mg IV now, and then 40 mg IV twice daily Giving potassium 40 mill equivalents p.o. now, for potassium 3.5. Giving magnesium sulfate 1 g IV, for magnesium 1.7 Follow BMP and magnesium level every morning For now hold oral Bumex and metolazone Continue potassium chloride 40 mEq p.o. 3 times daily COPD exacerbation- Continue Xopenex nebulizers 4 times daily and ipratropium bromide nebulizers 4 times daily, making both scheduled Add Pulmicort Respules 0.5 mg inhaled twice daily Methylprednisolone 40 mg IV every 8 hours Diabetes mellitus- Glucose 275 upon admission Hold Ozempic Reduce glargine from 68 to 48 units subcu every morning Placed on Accu-Cheks with NovoLog SSI Anxiety/chronic pain- Continue alprazolam, buprenorphine-naloxone, quetiapine History of pulmonary embolism- Patient has had enoxaparin on hold due to concerns regarding bruising History of Present Illness Chief Complaint: The patient presents to the emergency department on the evening of 11/12, after been discharged earlier in the day following admission from 11/06-11/12 for COPD exacerbation, with complaint of shortness of breath and weight gain Primary Care Provider: Radha Barboza The patient is a 63-year-old female with a past medical history of multiple recent admissions for COPD exacerbation, diabetes mellitus type 2, gout, chronic hypoxic respiratory failure, multiple myeloma, COPD, generalized anxiety, chronic respiratory failure, moderate persistent asthma, history of PE, obesity, hypoventilation syndrome, and HFpEF. The patient had recently been discharged after admission from 11/06-11/12 for COPD exacerbation. From the ED she did receive a hour-long nebulizer which she reports did not give much improvement. Allergies Allergy/AdvReac Type Severity Reaction Status Date / Time codeine Allergy Severe Anaphylaxis Verified 11/14/23 01:37 Iodinated Contrast Media Allergy Severe Anaphylaxis Verified 11/14/23 01:37 shellfish derived Allergy Severe Anaphylaxis Verified 11/14/23 01:37 tramadol Allergy Intermediate ITCHINESS Verified 11/14/23 01:37 iohexol Allergy Unknown CAN'T Verified 11/14/23 01:37 REMEMBER diphenhydramine AdvReac Severe Anxiety Verified 11/14/23 01:37 [From Benadryl] promethazine AdvReac Intermediate Anxiety Verified 11/14/23 01:37 Home Medications Medication Instructions Recorded Confirmed Type buprenorphine 8 mg-naloxone 2 mg 0.5 film sublingual BID 05/14/22 11/14/23 History sublingual film nystatin 100,000 unit/gram topical 1 applic topical BID PRN UNDER 05/14/22 11/14/23 History powder BREASTS NEEDED. ondansetron HCl 4 mg tablet 4 mg PO Q8H PRN NAUSEA/VOMITING 05/14/22 11/14/23 History quetiapine 200 mg tablet 200 mg PO HS 05/14/22 11/14/23 History levalbuterol HCl 1.25 mg/3 mL 1.25 mg inhalation TID PRN 01/16/23 11/14/23 History solution for nebulization Shortness Of Breath Or Wheezing enoxaparin 150 mg/mL subcutaneous 150 mg subcut UD 05/07/23 11/14/23 History syringe alprazolam 0.5 mg tablet 0.5 mg PO TID #14 tabs 08/02/23 11/14/23 Rx albuterol sulfate 90 mcg/actuation 2 puff inhalation UD PRN Shortness 08/30/23 11/14/23 History aerosol inhaler Of Breath Or Wheezing guaifenesin 600 mg tablet, 600 mg PO Q12 Congestion 09/11/23 11/14/23 History extended release 12 hr (Mucinex) fluticasone propionate 50 1 spray intranasal BID nasal 09/15/23 11/14/23 Rx mcg/actuation nasal congestion #0 mL spray,suspension (Flonase Allergy Relief) fluticasone fur. 200 mcg-umeclid 1 ea inhalation QAM #60 ea 09/16/23 11/14/23 Rx 62.5 mcg-vilant 25 mcg inhalat.powder (Trelegy Ellipta) levalbuterol tartrate 45 2 puff inhalation Q4 PRN WHEEZE 09/16/23 11/14/23 Rx mcg/actuation aerosol inhaler #15 grams bumetanide 2 mg tablet 2 mg PO BID #60 tabs 09/29/23 11/14/23 Rx insulin glargine 100 unit/mL (3 68 unit (0.68 mL) subcut QAM #15 mL 10/17/23 11/14/23 Rx mL) subcutaneous pen ipratropium bromide 0.02 % 3 ml continuous nebulization QID 10/17/23 11/14/23 Rx solution for inhalation PRN shortness of breath #75 mL potassium chloride 20 mEq 40 meq (2 x 20 mEq) PO TID #180 10/17/23 11/14/23 Rx tablet,extended release(part/cryst) tabs allopurinol 100 mg tablet 100 mg PO QAM #30 tabs 10/30/23 11/14/23 Rx calcium polycarbophil 625 mg 625 mg PO QAM #30 tabs 10/30/23 11/14/23 Rx tablet (Fiber (calcium polycarbophil)) colchicine 0.6 mg tablet (Colcrys) 0.6 mg PO BID PRN gout attacks #60 10/30/23 11/14/23 Rx tabs ibuprofen 200 mg tablet 600 mg (3 x 200 mg) PO TID PRN 10/30/23 11/14/23 Rx pain #30 tabs Ozempic Inj 0 mg INJ DIRECTED 11/07/23 11/14/23 History insulin aspart U-100 100 unit/mL 0 unit subcut TIDM 11/07/23 11/14/23 History (3 mL) subcutaneous pen (Novolog FlexPen U-100 Insulin aspart) metolazone 5 mg tablet 2.5 mg PO 4XD 11/07/23 11/14/23 History prednisone 10 mg tablet 0 mg PO .TAPER DIRECTED 11/07/23 11/14/23 History Past Med/Surg History Problem List (Updated 11/14/23 @ 05:45 by Casey Aguilar MD) Acute heart failure with preserved ejection fraction (HFpEF) Acute exacerbation of chronic obstructive pulmonary disease (Acute) Right knee pain DM II (diabetes mellitus, type II), controlled Elevated troponin (Acute) Acute and chronic respiratory failure with hypoxia (Acute) Acute exacerbation of chronic obstructive pulmonary disease (Acute) Gout Leukocytosis (Acute) Chronic hypoxic respiratory failure Acute hypokalemia (Acute) Shortness of breath (Acute) Multiple myeloma Last chemotherapy 2017 Follows with medical oncology in [facility] Diabetes Hypokalemia Heart failure with preserved ejection fraction COPD (chronic obstructive pulmonary disease) (Acute) Shortness of breath (Acute) Generalized anxiety disorder Chronic respiratory failure with hypoxia and hypercapnia Tobacco abuse counseling Chronic hypercapnic respiratory failure Moderate persistent asthma Constipation History of pulmonary embolism Obesity hypoventilation syndrome Chronic anticoagulation Acute bronchitis Pulmonary vascular congestion Right knee pain Nasal fracture Rib fractures (Acute) COPD (chronic obstructive pulmonary disease) (Acute) Medical History Acute exacerbation of chronic obstructive pulmonary disease Tobacco abuse Opiate dependence Dyspnea Acute heart failure with preserved ejection fraction (HFpEF) Asthma Surgical History No pertinent past surgical history Family History Sister Asthma Social History Smoking Status: Light tobacco smoker Tobacco Type: Cigarettes Cigarettes Per Day: 1 cigarette per day; Second Hand Exposure: No; Do You Dip or Chew Tobacco: No; Tobacco Cessation Education Requested by Patient: No Hx Alcohol Use: No Hx Substance Use: No Preferred Language: Burundian Communication Ability: Effective Tree Thinner Required: No Beliefs That Will Affect Care: None Current Living Situation: Family Current Living Situation Comment: lives with sister temporarily Other Information That Helps Us Care for You: No Feels Safe at Home: Yes Safety Concerns: Feels Safe At This Time Assistive Devices: Walker and Wheelchair Review of Systems Review of Systems: The patient denies chest pain, palpitations, cough, sore throat, fevers, chills, sweats, nausea, vomiting, diarrhea , constipation, abdominal pain, pelvic pain, blood in urine or stool, dysuria, urinary frequency or urgency, lightheadedness, dizziness, headache, memory loss, loss of consciousness, rash, abnormal bruising or bleeding, imbalance, focal weakness, numbness or tingling in arms or legs, generalized arthralgias or myalgias, back or neck pain, or night sweats. The review of systems is otherwise negative other than for that already noted above, and at least 10 systems have been reviewed. Physical Exam Physical Exam: The patient is awake, alert and oriented 3, well developed and well nourished, normocephalic and atraumatic, lying in bed and in no acute distress. HEENT--PERRL, EOMI, mucous membranes and oropharynx normal Neck--supple. No JVD. No bruits. Thyroid normal, trachea midline, no adenopathy. Heart--normal S1 and S2. No murmurs, rubs or gallops. Lungs--crackles at bases bilaterally. No respiratory distress, no accessory muscle use. Abdomen--normal bowel sounds and soft. Nontender. Nondistended. Obese Extremities--1+ bilateral pretibial pitting edema, right greater than left. Dermatologic--normal skin turgor, normal color, no abnormal lymph nodes, no rash. Neurologic--cranial nerves II through XII grossly intact. Rheumatologic--normal range of motion. Psychiatric--normal affect. Results & Data Results & Data Vital Signs (Past 12 Hours) Vital Signs Temp Pulse Pulse Resp BP BP Pulse Ox 11/14/23 01:22 104 H 20 135/91 94 11/13/23 23:30 95 H 22 139/86 95 11/13/23 22:11 99 H 21 96 11/13/23 22:11 99 H 21 124/91 96 11/13/23 22:11 96 11/13/23 21:56 94 H 11/13/23 20:49 36.8 C 109 H 20 138/83 96 O2 Del Method 11/14/23 01:22 Room Air 11/13/23 23:30 Room Air 11/13/23 22:11 Room Air 11/13/23 22:11 Room Air 11/13/23 22:11 Room Air 11/13/23 21:56 11/13/23 20:49 Room Air Laboratory Results Laboratory Results WBC 23.39 K/ul (4.8-10.8) H 11/13/23 21:15 RBC 5.18 M/uL (4.20-5.40) 11/13/23 21:15 Hgb 13.9 g/dl (12.0-16.0) 11/13/23 21:15 Hct 42.7 % (37.0-47.0) 11/13/23 21:15 MCV 82.4 fL (80.0-100.0) 11/13/23 21:15 MCH 26.8 pg (25.0-34.0) 11/13/23 21:15 MCHC 32.6 g/dL (32.0-36.0) 11/13/23 21:15 RDW Std Deviation 50.8 fL (36.4-46.3) H 11/13/23 21:15 RDW Coeff of Malick 17.1 % (11.5-14.5) H 11/13/23 21:15 Plt Count 253 K/uL (130-400) 11/13/23 21:15 MPV 10.4 fL (9.4-12.4) 11/13/23 21:15 Immature Gran % (Auto) 1.7 % 11/13/23 21:15 Neut % (Auto) 87.6 % 11/13/23 21:15 Lymph % (Auto) 7.5 % 11/13/23 21:15 [place] % (Auto) 3.0 % 11/13/23 21:15 Eos % (Auto) 0.0 % 11/13/23 21:15 Baso % (Auto) 0.2 % 11/13/23 21:15 Neut # (Auto) 20.48 K/uL (1.40-6.50) H 11/13/23 21:15 Lymph # (Auto) 1.76 K/uL (1.20-3.40) 11/13/23 21:15 [place] # (Auto) 0.71 K/uL (0.11-0.59) H 11/13/23 21:15 Eos # (Auto) 0.01 K/uL (0.00-0.50) 11/13/23 21:15 Baso # (Auto) 0.04 K/uL (0.00-0.20) 11/13/23 21:15 Immature Gran # (Auto) 0.39 K/uL (0.01-0.20) H 11/13/23 21:15 PT 10.7 Seconds (9.0-12.0) 11/13/23 21:15 INR 1.0 (0.9-1.1) 11/13/23 21:15 APTT 23 Seconds (21-31) 11/13/23 21:15 PTT Ratio 0.9 11/13/23 21:15 Sodium 134 mmol/L (136-145) L 11/13/23 21:15 Potassium 3.5 mmol/L (3.5-5.1) 11/13/23 21:15 Chloride 90 mmol/L (98-107) L 11/13/23 21:15 Carbon Dioxide 32 mmol/L (21-32) 11/13/23 21:15 Anion Gap 12 (3-11) H 11/13/23 21:15 BUN 37 mg/dl (6-23) H D 11/13/23 21:15 Creatinine 0.94 mg/dl (0.6-1.2) 11/13/23 21:15 Est Cr Clr Drug Dosing Not Reportable 11/13/23 21:15 Est GFR ( Amer) 75.4 ml/min 11/13/23 21:15 Est GFR (Non-Af Amer) 65.0 ml/min 11/13/23 21:15 BUN/Creatinine Ratio 39.4 (10-20) H 11/13/23 21:15 Glucose 275 mg/dl (70-99(Fasting)) H 11/13/23 21:15 Calcium 8.3 mg/dl (8.6-10.3) L 11/13/23 21:15 Magnesium 1.7 mg/dl (1.7-2.4) 11/13/23 21:15 Total Bilirubin 0.4 mg/dl (0.2-1.0) 11/13/23 21:15 AST 17 U/L (13-39) 11/13/23 21:15 ALT 24 U/L (7-52) 11/13/23 21:15 Alkaline Phosphatase 77 U/L (34-104) 11/13/23 21:15 Troponin I High Sens 46.0 pg/ml (0-14) H 11/13/23 23:30 Total Protein 6.4 gm/dl (6.0-8.3) 11/13/23 21:15 Albumin 3.8 gm/dl (3.4-5.0) 11/13/23 21:15 Globulin 2.6 gm/dl (2.5-4.0) 11/13/23 21:15 Albumin/Globulin Ratio 1.5 (0.9-2) 11/13/23 21:15 Code Status & VTE Plan Code Status Full code VTE Prophylaxis Plan VTE Prophylaxis will be ordered: Yes PG Care Time/CCT Total # of Minutes Spent Total Time Spent with Patient: Total time spent is greater than 50% in coordination of care (as documented) at patient's floor/unit and/or counseling patient: Coding Level of Care Code 87204 INT INP/OBS CARE 3/75MIN Diagnoses Acute heart failure with preserved ejection fraction (HFpEF) I50.31 Acute and chronic respiratory failure with hypoxia J96.21 Chronic respiratory failure with hypoxia and hypercapnia J96.11; J96.12 Obesity hypoventilation syndrome E66.2 History of pulmonary embolism Z86.711 Type 2 diabetes mellitus without complication, with long-term current use of insulin E11.9; Z79.4 Diabetes mellitus type: type 2 Diabetes mellitus detention insulin use: with 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
[2023-11-14] MEDS: ALPRAZolam 0.5 MG TABLET PO STA (02:02)
[2023-11-14] MEDS: methylPREDNISolone 125 MG/2 ML VIAL IV STA (02:02)
[2023-11-14] MEDS: guaiFENesin 600 MG TABCR PO STA (02:02)
[2023-11-14 02:12] LABS: Magnesium 1.7 mg/dl (1.7-2.4)
[2023-11-14] MEDS ORDERED: GLUCOSE 10 TAB/TUBE PO PRN (02:27)
[2023-11-14] MEDS ORDERED: GLUCAGON FOR INJ 1 MG VIAL SQ PRN (02:27)
[2023-11-14] MEDS ORDERED: GLUCOSE 40% GEL 15 GM TUBE PO PRN (02:27)
[2023-11-14] MEDS ORDERED: DEXTROSE 50% 50 ML SYRINGE IV PRN (02:27)
[2023-11-14] MEDS ORDERED: ACETAMINOPHEN 325 MG TAB PO PRN (02:27)
[2023-11-14] MEDS: QUEtiapine FUMARATE 200 MG TAB PO STA (03:20)
[2023-11-14] MEDS: MAGNESIUM SULFATE / D5W 1 GM/100 ML BAG IV ONE (06:48)
[2023-11-14] MEDS ORDERED: methylPREDNISolone 10 mg/mL (For Ped Dose < 7mg) IV SCH (07:00)
[2023-11-14] MEDS: IPRATROPIUM BROMIDE NEB SOLN 0.02% 0.5MG/2.5ML VIAL NEB SCH (07:10)
[2023-11-14] MEDS: LEVALBUTEROL 1.25 MG/3 ML NEB INH SCH (07:10)
[2023-11-14] MEDS: BUDESONIDE 0.5 MG/2 ML VIAL (PULMICORT) NEB SCH (07:10)
--- NOTE | 2023-11-14 08:26 | XRay Report ---
XR chest 1V not portable CLINICAL HISTORY: Chest pain, nonspecific TECHNIQUE: Single frontal radiograph of the chest was obtained. Comparison: Comparison is made to chest radiograph 11/07/2023 FINDINGS: Exam is limited by underpenetration. The cardiomediastinal silhouette is normal. Atelectasis in the b ilateral lower lungs. No evidence of pleural effusion or pneumothorax. IMPRESSION: No acute chest disease. ACT 112: Negative or not required by law. Electronically signed by: Raheem Macias M.D. 11/14/2023 8:25 AM
[2023-11-14 08:39] LABS: Albumin Level 3.6 gm/dl (3.4-5.0); BUN Creatinine Ratio 53.8 (10-20); Calcium 8.5 mg/dl (8.6-10.3); Creatinine Clr Calc Pharmacy 80.4 ml/min; Est GFR (African American) 94.4 ml/min; Est GFR (Non-African American) 81.5 ml/min; Phosphorus 3.7 mg/dl (2.5-4.9); Potassium 3.8 mmol/L (3.5-5.1)
[2023-11-14] MEDS: POTASSIUM CHLORIDE CRTAB 20 MEQ TABCR PO SCH (08:57)
[2023-11-14] MEDS: allopurinoL 100 MG TAB PO SCH (08:58)
[2023-11-14] MEDS: INSULIN ASPART PER UNIT CHARGE SC SCH (08:58)
[2023-11-14] MEDS: ALPRAZolam 0.5 MG TABLET PO SCH (08:58)
[2023-11-14] MEDS: methylPREDNISolone 40 MG in SYRINGE 0 ML IV SCH (08:59)
[2023-11-14] MEDS: CALCIUM POLYCARBOPHIL 625MG TAB PO SCH (08:59)
[2023-11-14] MEDS: FLUTICASONE FUROATE 200MCG 14 PUFFS/INHALER INH SCH (08:59)
[2023-11-14] MEDS: guaiFENesin 600 MG TABCR PO SCH (08:59)
[2023-11-14] MEDS: FUROSEMIDE 40 MG/4 ML VIAL IV SCH (09:00)
[2023-11-14] MEDS: FLUTICASONE PROPIONATE NA SPR 16 GM BTL NAE SCH (09:00)
[2023-11-14] MEDS: UMECLIDINIUM/VILANTEROL 62.5/25MCG 7 PUFFS/INHALER INH SCH (09:00)
[2023-11-14] MEDS ORDERED: LEVALBUTEROL 1.25 MG/3 ML NEB INH SCH (09:00)
[2023-11-14] MEDS: LANTUS PER UNIT CHARGE SQ SCH (09:03)
[2023-11-14] MEDS: BUPRENORPHINE/NALOXONE 8/2 MG TAB SL SCH ×2 (09:21→14:01)
[2023-11-14] MEDS: LANTUS PER UNIT CHARGE SQ ONE (11:12)
[2023-11-14] MEDS: INSULIN ASPART PER UNIT CHARGE SC STA (11:12)
--- NOTE | 2023-11-14 13:43 | Communication Note ---
Date of Service: November 14, 2023 Patient was discharged yesterday by myself after being treated for COPD exacerbation. She came back to the ER because of shortness of breath. She was believed to be in CHF exacerbation. She was given IV Lasix in the emergency room and another dose this morning. Her chest x-ray on admission did not appear to need to be very congested. Today she is back to her baseline breathing status. Remains off of oxygen. I do not hear any wheezing or crackles. Her legs do not appear to be largely edematous. I will switch her back to her usual Bumex, potassium pills, metolazone and will discontinue IV Lasix. She was started on IV Solu-Medrol on admission. I did not hear any wheezing. I will switch her back to p.o. prednisone which she was discharged on. She does not appear short of breath. The Solu-Medrol is causing her sugars to be elevated. Managing her uncontrolled diabetes.
[2023-11-14] MEDS ORDERED: Nursing to Pharmacy Communication SCH (13:45)
[2023-11-14] MEDS: QUEtiapine FUMARATE 200 MG TAB PO SCH (20:22)
[2023-11-15 07:19] LABS: Basophils # (auto) 0.03 K/uL (0.00-0.20); Basophils % (auto) 0.2 %; Eosinophils # (auto) 0.08 K/uL (0.00-0.50); Eosinophils % (auto) 0.5 %; Hematocrit (blood only) 42.8 % (37.0-47.0); Hemoglobin 13.5 g/dl (12.0-16.0); Immature Granulocytes # (auto) 0.31 K/uL (0.01-0.20); Immature Granulocytes % (auto) 1.9 %; Lymphocytes # (auto) 2.25 K/uL (1.20-3.40); Lymphocytes % (auto) 13.8 %; Mean Corpuscular Hemoglobin 27.1 pg (25.0-34.0); Mean Corpuscular Hgb Conc 31.5 g/dL (32.0-36.0); Mean Corpuscular Volume 85.9 fL (80.0-100.0); Monocytes # (auto) 0.64 K/uL (0.11-0.59); Monocytes % (auto) 3.9 %; Neutrophils # (auto) 13.01 K/uL (1.40-6.50); Neutrophils % (auto) 79.7 %; Platelet Count 252 K/uL (130-400); RDW Coefficient of Variation 18.1 % (11.5-14.5); RDW Standard Deviation 55.8 fL (36.4-46.3); Red Blood Count 4.98 M/uL (4.20-5.40); White Blood Count 16.32 K/ul (4.8-10.8)
[2023-11-15 07:49] LABS: Albumin Level 3.8 gm/dl (3.4-5.0); BUN Creatinine Ratio 54.1 (10-20); Calcium 9.4 mg/dl (8.6-10.3); Creatinine Clr Calc Pharmacy 85.5 ml/min; Est GFR (African American) 100.6 ml/min; Est GFR (Non-African American) 86.8 ml/min; Magnesium 2.4 mg/dl (1.7-2.4); Phosphorus 2.6 mg/dl (2.5-4.9); Potassium 4.7 mmol/L (3.5-5.1)
--- NOTE | 2023-11-15 08:11 | XRay Report ---
XR chest 2V PA/lateral HISTORY: Shortness of breath. eval for CHF COMPARISON: Chest 11/13/2023. FINDINGS: No pneumothorax. No pleural effusions. The cardiac silhouette is normal in size. A few biba silar linear densities favor subsegmental atelectasis or scarring. No evidence for pulmonary edema. N o acute fractures. Stable expansile right anterior fourth rib lesion. Surgical clips noted within the abdomen. Progressive lingular airspace opacity likely representing a pneumonia. IMPRESSION: Progressive lingular airspace opacity which likely represents a pneumonia. ACT 112: Negative or not required by law. Electronically signed by: Chester Salas M.D. 11/15/2023 8:10 AM
[2023-11-15] MEDS: predniSONE 20 MG TAB PO SCH (08:14)
[2023-11-15] MEDS: BUMETANIDE 1 MG TAB PO SCH (08:14)
[2023-11-15] MEDS: AZITHROMYCIN 250 MG TAB PO SCH (11:14)
[2023-11-15] MEDS: cephALEXin 500 MG CAP PO SCH (11:15)
[2023-11-15] MEDS: LANTUS PER UNIT CHARGE SQ ONE (11:15)
--- NOTE | 2023-11-15 12:47 | Hospitalist Progress Note ---
Date of Service November 15, 2023 Assessment & Plan (1) Acute heart failure with preserved ejection fraction (HFpEF): (2) Acute and chronic respiratory failure with hypoxia: (3) Chronic respiratory failure with hypoxia and hypercapnia: (4) Obesity hypoventilation syndrome: (5) History of pulmonary embolism: (6) Diabetes: (7) Generalized anxiety disorder: Plan Acute heart failure with preserved ejection fraction/acute on chronic respiratory failure with hypoxia/obesity hypoventilation syndrome- On admission, it was believed that she had a CHF exacerbation. She was switched to IV Lasix twice daily from p.o. Bumex When I saw her yesterday 11/13, she appeared to be euvolemic after 2 doses of IV Lasix and was thus switched back to p.o. Bumex Chest x-ray today 11/14 shows no pulmonary congestion Will continue p.o. Bumex and metolazone Potassium rising, switch to potassium 40 mEq twice daily from 3 times daily dosing Currently patient is on her home regimen of diuretics Chest x-ray 11/14 raised question of a pneumonia. The patient does not have any cough or sputum production. White count is thought to be related to steroids. No fever. But decided to treat her with p.o. Keflex and azithromycin COPD She is not in a COPD flare at this time Discontinued IV Solu-Medrol yesterday 11/13 Switch to p.o. prednisone tapering dose that she was discharged on the last hospitalization Blood sugar control is better She is on her usual insulin regimen Diabetes mellitus- Glucose was uncontrolled initially when she was put on Solu-Medrol Now better controlled now that she is back on p.o. prednisone and her usual regimen of insulin Currently on Lantus 68 units Monitor sugars overnight Anxiety/chronic pain- Continue alprazolam, buprenorphine-naloxone, quetiapine History of pulmonary embolism- Patient has had enoxaparin on hold due to concerns regarding bruising Plan to discharge her tomorrow Admission and Anticipated Discharge Date Admission Date: November 14, 2023 Subjective Patient continues to complain of shortness of breath. Noted that she is not hypoxic. She keeps saying that she gained 18 pounds since August. Our records here show that her weight went up from 95 kg to 98 kg since August. She has been switched from IV Lasix to p.o. Bumex home dose since last evening. Review of Systems Review of Systems: All systems reviewed & are unremarkable except as noted in Subjective Physical Exam Physical Exam: General: Awake, conversant Heart: S1, S2/regular rate and rhythm, no murmur rubs or gallops Lungs: Clear to auscultation bilaterally. Normal effort. No wheezes heard. No crackles heard. Abdomen: Soft/nontender/nondistended. No hepatosplenomegaly Extremities: No clubbing/cyanosis. Mild bilateral edema Behavior: Appropriate, cooperative Results & Data Results & Data Vital Signs (Past 12 Hours) Vital Signs Temp Pulse Pulse Resp BP Pulse Ox O2 Del Method 11/15/23 12:00 104 H 18 122/96 95 Room Air 11/15/23 11:00 104 H 18 96 Room Air 11/15/23 08:00 36.8 C 11/15/23 07:54 99 H 20 132/94 98 Room Air 11/15/23 07:25 102 H 11/15/23 07:25 Room Air 11/15/23 07:20 99 H 16 98 Room Air 11/15/23 03:22 36.8 C 93 H 19 129/85 93 Room Air Laboratory Results Abnormal lab results 11/14/23 11/14/23 11/14/23 Range/Units 14:11 16:45 20:00 WBC (4.8-10.8) K/ul MCHC (32.0-36.0) g/dL RDW Std Deviation (36.4-46.3) fL RDW Coeff of Malick (11.5-14.5) % Neut # (Auto) (1.40-6.50) K/uL [place] # (Auto) (0.11-0.59) K/uL Immature Gran # (Auto) (0.01-0.20) K/uL Chloride (98-107) mmol/L Carbon Dioxide (21-32) mmol/L BUN (6-23) mg/dl BUN/Creatinine Ratio (10-20) Glucose (70-99(Fasting)) mg/dl POC Glucose 322 H* 351 H* 257 H (70-99) mg/dl 11/15/23 11/15/23 11/15/23 Range/Units 06:49 07:17 11:31 WBC 16.32 H (4.8-10.8) K/ul MCHC 31.5 L (32.0-36.0) g/dL RDW Std Deviation 55.8 H (36.4-46.3) fL RDW Coeff of Malick 18.1 H (11.5-14.5) % Neut # (Auto) 13.01 H (1.40-6.50) K/uL [place] # (Auto) 0.64 H (0.11-0.59) K/uL Immature Gran # (Auto) 0.31 H (0.01-0.20) K/uL Chloride 96 L (98-107) mmol/L Carbon Dioxide 36 H (21-32) mmol/L BUN 40 H (6-23) mg/dl BUN/Creatinine Ratio 54.1 H (10-20) Glucose 259 H (70-99(Fasting)) mg/dl POC Glucose 233 H 111 H (70-99) mg/dl Diagnostic Findings Chest X-Ray 11/15/23 07:00 XR chest 2V PA/lateral HISTORY: Shortness of breath. eval for CHF COMPARISON: Chest 11/13/2023. FINDINGS: No pneumothorax. No pleural effusions. The cardiac silhouette is normal in size. A few bibasilar linear densities favor subsegmental atelectasis or scarring. No evidence for pulmonary edema. No acute fractures. Stable expansile right anterior fourth rib lesion. Surgical clips noted within the abdomen. Progressive lingular airspace opacity likely representing a pneumonia. IMPRESSION: Progressive lingular airspace opacity which likely represents a pneumonia. ACT 112: Negative or not required by law. Electronically signed by: Chester Salas M.D. 11/15/2023 8:10 AM PG Care Time/CCT Total # of Minutes Spent Total Time Spent with Patient: Total time spent is greater than 50% in coordination of care (as documented) at patient's floor/unit and/or counseling patient: Coding Level of Care Code 56663 SUB INP/OBS CARE 2/35MIN Diagnoses Acute heart failure with preserved ejection fraction (HFpEF) I50.31 Acute and chronic respiratory failure with hypoxia J96.21 Chronic respiratory failure with hypoxia and hypercapnia J96.11; J96.12 Obesity hypoventilation syndrome E66.2 History of pulmonary embolism Z86.711 Type 2 diabetes mellitus without complication, with long-term current use of insulin E11.9; Z79.4 Diabetes mellitus type: type 2 Diabetes mellitus penitentiary insulin use: with intermodal owner operator truck driver use Diabetes mellitus complication status: without complication Generalized anxiety disorder F41.1 (6) Diabetes Diabetes mellitus type: type 2 Diabetes mellitus intermodal owner operator truck driver insulin use: with intermodal owner operator truck driver use Diabetes mellitus complication status: without complication Qualified Code(s): E11.9 - Type 2 diabetes mellitus without complications; Z79.4 - computer terminal operator (current) use of insulin
[2023-11-15] MEDS ORDERED: BUMETANIDE 1 MG TAB PO SCH (17:00)
[2023-11-15] MEDS: POTASSIUM CHLORIDE CRTAB 20 MEQ TABCR PO SCH (21:23)
[2023-11-16] MEDS: CARBOHYDRATES FOR HYPOGLYCEMIA PO PRN (05:55)
[2023-11-16 06:11] LABS: Basophils # (auto) 0.04 K/uL (0.00-0.20); Basophils % (auto) 0.3 %; Eosinophils # (auto) 0.12 K/uL (0.00-0.50); Eosinophils % (auto) 0.8 %; Hematocrit (blood only) 41.2 % (37.0-47.0); Hemoglobin 12.9 g/dl (12.0-16.0); Immature Granulocytes # (auto) 0.58 K/uL (0.01-0.20); Immature Granulocytes % (auto) 4.1 %; Lymphocytes # (auto) 3.11 K/uL (1.20-3.40); Lymphocytes % (auto) 21.9 %; Mean Corpuscular Hemoglobin 26.8 pg (25.0-34.0); Mean Corpuscular Hgb Conc 31.3 g/dL (32.0-36.0); Mean Corpuscular Volume 85.7 fL (80.0-100.0); Mean Platelet Volume 9.8 fL (9.4-12.4); Monocytes # (auto) 0.69 K/uL (0.11-0.59); Monocytes % (auto) 4.9 %; Neutrophils # (auto) 9.66 K/uL (1.40-6.50); Platelet Count 252 K/uL (130-400); RDW Coefficient of Variation 17.7 % (11.5-14.5); RDW Standard Deviation 55.4 fL (36.4-46.3); Red Blood Count 4.81 M/uL (4.20-5.40)
[2023-11-16 06:40] LABS: Albumin Level 3.6 gm/dl (3.4-5.0); BUN Creatinine Ratio 52.6 (10-20); Calcium 8.7 mg/dl (8.6-10.3); Creatinine Clr Calc Pharmacy 111.5 ml/min; Est GFR (African American) 115.2 ml/min; Est GFR (Non-African American) 99.4 ml/min; Magnesium 2.1 mg/dl (1.7-2.4); Phosphorus 3.2 mg/dl (2.5-4.9)
[2023-11-16] MEDS ORDERED: LANTUS PER UNIT CHARGE SQ SCH (09:00)
[2023-11-16] MEDS: metOLazone 2.5 MG TABLET PO SCH (09:01)
[2023-11-16] MEDS: LANTUS PER UNIT CHARGE SQ SCH (09:11)
--- NOTE | 2023-11-16 11:40 | Electrocardiogram Report ---
Test Reason : Blood Pressure : / mmHG Vent. Rate : 105 BPM Atrial Rate : 105 BPM P-R Int : 130 ms QRS Dur : 082 ms QT Int : 366 ms P-R-T Axes : 037 011 042 degrees QTc Int : 483 ms Sinus tachycardia with Premature atrial complexes Inferior infarct , age undetermined Cannot rule out Anterior infarct (cited on or before 28-JUL-2023) Abnormal ECG When compared with ECG of 07-NOV-2023 17:02, Premature atrial complexes are now Present Confirmed by Juan Hardin ([id number]) on 11/16/2023 11:40:04 AM Referred By: Confirmed By:Juan Hardin
--- NOTE | 2023-11-16 11:59 | Electrocardiogram Report ---
Test Reason : Blood Pressure : / mmHG Vent. Rate : 095 BPM Atrial Rate : 095 BPM P-R Int : 148 ms QRS Dur : 078 ms QT Int : 396 ms P-R-T Axes : 051 009 053 degrees QTc Int : 497 ms Normal sinus rhythm Inferior infarct (cited on or before 16-AUG-2023) Abnormal ECG When compared with ECG of 13-NOV-2023 21:12, (unconfirmed) Premature atrial complexes are no longer Present Confirmed by Juan Hardin ([id number]) on 11/16/2023 11:59:26 AM Referred By: REFERRED SELF Confirmed By:Juan Hardin
--- NOTE | 2023-11-16 13:10 | Hospitalist Progress Note ---
Date of Service November 16, 2023 Assessment & Plan (1) Acute heart failure with preserved ejection fraction (HFpEF): (2) Acute and chronic respiratory failure with hypoxia: (3) Chronic respiratory failure with hypoxia and hypercapnia: (4) Obesity hypoventilation syndrome: (5) History of pulmonary embolism: (6) Diabetes: (7) Generalized anxiety disorder: Plan Acute heart failure with preserved ejection fraction/acute on chronic respiratory failure with hypoxia/obesity hypoventilation syndrome- On admission, it was believed that she had a CHF exacerbation. She was switched to IV Lasix twice daily from p.o. Bumex When I saw her yesterday 11/13, she appeared to be euvolemic after 2 doses of IV Lasix and was thus switched back to p.o. Bumex Chest x-ray today 11/14 shows no pulmonary congestion Will continue p.o. Bumex and metolazone Potassium stable on potassium 40 mEq twice daily Currently patient is on her home regimen of diuretics. Decided to give her an extra dose of Bumex because of increased leg swelling although this could be because she kept her legs hanging all day yesterday. Chest x-ray 11/14 raised question of a pneumonia. The patient does not have any cough or sputum production. White count is thought to be related to steroids. No fever. But decided to treat her with p.o. Keflex and azithromycin COPD She is not in a COPD flare at this time Discontinued IV Solu-Medrol 11/13 Switched to p.o. prednisone tapering dose that she was discharged on the last hospitalization Blood sugar control is better She is on her usual insulin regimen Diabetes mellitus- Glucose was uncontrolled initially when she was put on Solu-Medrol Now better controlled now that she is back on p.o. prednisone and her usual regimen of insulin On her home dose of Lantus 68 units, she had a hypoglycemic episode this morning Will reduce her Lantus further to 55 units starting 11/16 Anxiety/chronic pain- Continue alprazolam, buprenorphine-naloxone, quetiapine History of pulmonary embolism- Patient has had enoxaparin on hold due to concerns regarding bruising Plan to discharge her tomorrow Admission and Anticipated Discharge Date Admission Date: November 14, 2023 Subjective Patient complains of shortness of breath. Not using oxygen. Noted that this morning she had an episode of hypoglycemia with blood sugar in the 70s. Per nurse, she kept her legs hanging all day and thus her legs appear little swollen. Review of Systems Review of Systems: All systems reviewed & are unremarkable except as noted in Subjective Physical Exam Physical Exam: General: Awake, conversant Heart: S1, S2/regular rate and rhythm, no murmur rubs or gallops Lungs: Clear to auscultation bilaterally. Normal effort. No wheezes heard. No crackles heard. Abdomen: Soft/nontender/nondistended. No hepatosplenomegaly Extremities: No clubbing/cyanosis. 1+ bilateral edema Behavior: Appropriate, cooperative Results & Data Results & Data Vital Signs (Past 12 Hours) Vital Signs Temp Pulse Pulse Resp BP Pulse Ox O2 Del Method 11/16/23 11:45 36.6 C 111 H 18 155/95 H 95 Room Air 11/16/23 11:06 100 H 18 98 Room Air 11/16/23 10:13 Room Air 11/16/23 08:13 36.7 C 101 H 20 128/88 97 Room Air 11/16/23 07:55 102 H 18 97 Room Air 11/16/23 07:32 91 H 11/16/23 03:23 37.0 C 90 20 128/72 93 Room Air Laboratory Results Abnormal lab results 11/15/23 11/15/23 11/16/23 Range/Units 16:17 20:12 05:42 WBC 14.20 H (4.8-10.8) K/ul MCHC 31.3 L (32.0-36.0) g/dL RDW Std Deviation 55.4 H (36.4-46.3) fL RDW Coeff of [place] 17.7 H (11.5-14.5) % Neut # (Auto) 9.66 H (1.40-6.50) K/uL [place] # (Auto) 0.69 H (0.11-0.59) K/uL Immature Gran # (Auto) 0.58 H (0.01-0.20) K/uL Carbon Dioxide 34 H (21-32) mmol/L BUN 30 H (6-23) mg/dl Creatinine 0.57 L (0.6-1.2) mg/dl BUN/Creatinine Ratio 52.6 H (10-20) POC Glucose 361 H* 241 H (70-99) mg/dl 11/16/23 11/16/23 11/16/23 Range/Units 06:14 07:35 11:02 WBC (4.8-10.8) K/ul MCHC (32.0-36.0) g/dL RDW Std Deviation (36.4-46.3) fL RDW Coeff of [place] (11.5-14.5) % Neut # (Auto) (1.40-6.50) K/uL [place] # (Auto) (0.11-0.59) K/uL Immature Gran # (Auto) (0.01-0.20) K/uL Carbon Dioxide (21-32) mmol/L BUN (6-23) mg/dl Creatinine (0.6-1.2) mg/dl BUN/Creatinine Ratio (10-20) POC Glucose 146 H 170 H 106 H (70-99) mg/dl 11/16/23 11/16/23 Range/Units 11:20 11:22 WBC (4.8-10.8) K/ul MCHC (32.0-36.0) g/dL RDW Std Deviation (36.4-46.3) fL RDW Coeff of [place] (11.5-14.5) % Neut # (Auto) (1.40-6.50) K/uL [place] # (Auto) (0.11-0.59) K/uL Immature Gran # (Auto) (0.01-0.20) K/uL Carbon Dioxide (21-32) mmol/L BUN (6-23) mg/dl Creatinine (0.6-1.2) mg/dl BUN/Creatinine Ratio (10-20) POC Glucose 69 L* 100 H (70-99) mg/dl PG Care Time/CCT Total # of Minutes Spent Total Time Spent with Patient: Total time spent is greater than 50% in coordination of care (as documented) at patient's floor/unit and/or counseling patient: Coding Level of Care Code 73772 SUB INP/OBS CARE 2/35MIN Diagnoses Acute heart failure with preserved ejection fraction (HFpEF) I50.31 Acute and chronic respiratory failure with hypoxia J96.21 Chronic respiratory failure with hypoxia and hypercapnia J96.11; J96.12 Obesity hypoventilation syndrome E66.2 History of pulmonary embolism Z86.711 Type 2 diabetes mellitus without complication, with long-term current use of insulin E11.9; Z79.4 Diabetes mellitus type: type 2 Diabetes mellitus senior living insulin use: with senior living use Diabetes mellitus complication status: without complication Generalized anxiety disorder F41.1 (6) Diabetes Diabetes mellitus type: type 2 Diabetes mellitus senior living insulin use: with intermodal owner operator truck driver use Diabetes mellitus complication status: without complication Qualified Code(s): E11.9 - Type 2 diabetes mellitus without complications; Z79.4 - salvage determiner (current) use of insulin
[2023-11-16] MEDS: BUMETANIDE 1 MG TAB PO ONE (14:08)
[2023-11-16] MEDS: cefUROXime axetil 500 MG TAB PO SCH (20:32)
[2023-11-16] MEDS: ONDANSETRON 4 MG OD TAB PO PRN (22:36)
[2023-11-16] MEDS: PROCHLORPERAZINE 5 MG in SYRINGE 4 ML IV ONE (23:46)
[2023-11-17 07:42] LABS: Magnesium 1.9 mg/dl (1.7-2.4)
[2023-11-17] MEDS: LANTUS PER UNIT CHARGE SQ SCH (08:05)
[2023-11-17 08:09] LABS: BUN Creatinine Ratio 48.1 (10-20); Calcium 9.6 mg/dl (8.6-10.3); Creatinine Clr Calc Pharmacy 76.4 ml/min; Est GFR (African American) 90.2 ml/min; Est GFR (Non-African American) 77.8 ml/min; Potassium 3.2 mmol/L (3.5-5.1)
[2023-11-17] MEDS: POTASSIUM CHLORIDE CRTAB 20 MEQ TABCR PO STA (08:25)
[2023-11-17] MEDS: predniSONE 10 MG TABLET PO SCH (09:18)
--- NOTE | 2023-11-17 11:52 | Hospitalist Progress Note ---
Date of Service November 17, 2023 Assessment & Plan (1) Acute heart failure with preserved ejection fraction (HFpEF): (2) Acute and chronic respiratory failure with hypoxia: (3) Chronic respiratory failure with hypoxia and hypercapnia: (4) Obesity hypoventilation syndrome: (5) History of pulmonary embolism: (6) Diabetes: (7) Generalized anxiety disorder: Plan Acute heart failure with preserved ejection fraction/acute on chronic respiratory failure with hypoxia/obesity hypoventilation syndrome- On admission, it was believed that she had a CHF exacerbation. She was switched to IV Lasix twice daily from p.o. Bumex When I saw her yesterday 11/13, she appeared to be euvolemic after 2 doses of IV Lasix and was thus switched back to p.o. Bumex Chest x-ray today 11/14 shows no pulmonary congestion Will continue p.o. Bumex and metolazone Potassium stable on potassium 40 mEq twice daily Currently patient is on her home regimen of diuretics. Leg swelling is due to not being compliant to leg elevation Chest x-ray 11/14 raised question of a pneumonia. The patient does not have any cough or sputum production. White count is thought to be related to steroids. No fever. But decided to treat her with p.o. Ceftin and azithromycin COPD She is not in a COPD flare at this time Discontinued IV Solu-Medrol 11/13 Switched to p.o. prednisone tapering dose that she was discharged on the last hospitalization Currently on Prednisone 30mg Diabetes mellitus- Glucose was uncontrolled initially when she was put on Solu-Medrol Now on p.o. prednisone Reducing insulin dosing as Prednisone is being tapered down On her home dose of Lantus 68 units, she had a hypoglycemic episode this morning Currently on Lantus 55 units starting 11/16 Anxiety/chronic pain- Continue alprazolam, buprenorphine-naloxone, quetiapine History of pulmonary embolism- Patient has had enoxaparin on hold due to concerns regarding bruising Since she is complaining of nausea overnight, she will not be discharged today. Admission and Anticipated Discharge Date Admission Date: November 14, 2023 Subjective Patient says she was "severely nauseated all night". She got Compazine that h elped. She has kept her legs hanging while seated on recliner. Review of Systems Review of Systems: All systems reviewed & are unremarkable except as noted in Subjective Physical Exam Physical Exam: General: Awake, conversant Heart: S1, S2/regular rate and rhythm, no murmur rubs or gallops Lungs: Clear to auscultation bilaterally. Normal effort. No wheezes heard. No crackles heard. Abdomen: Soft/nontender/nondistended. No hepatosplenomegaly Extremities: No clubbing/cyanosis. 1+ bilateral edema Behavior: Appropriate, cooperative Results & Data Results & Data Vital Signs (Past 12 Hours) Vital Signs Temp Pulse Pulse Resp BP BP Pulse Ox 11/17/23 10:47 87 15 92 11/17/23 09:21 11/17/23 07:45 36.9 C 94 H 18 118/81 93 11/17/23 07:19 110 H 11/17/23 07:19 86 14 93 11/17/23 02:18 36.6 C 115 H 16 123/74 93 11/17/23 00:30 21 O2 Del Method FiO2 11/17/23 10:47 Room Air 11/17/23 09:21 CPAP 11/17/23 07:45 Room Air 11/17/23 07:19 11/17/23 07:19 Room Air 11/17/23 02:18 Room Air 11/17/23 00:30 Laboratory Results Abnormal lab results 11/16/23 11/16/23 11/16/23 Range/Units 17:01 17:10 17:19 Potassium (3.5-5.1) mmol/L Chloride (98-107) mmol/L Carbon Dioxide (21-32) mmol/L Anion Gap (3-11) BUN (6-23) mg/dl BUN/Creatinine Ratio (10-20) Glucose (70-99(Fasting)) mg/dl POC Glucose 332 H* 360 H* 311 H* (70-99) mg/dl 11/16/23 11/16/23 11/16/23 Range/Units 17:41 20:06 20:07 Potassium (3.5-5.1) mmol/L Chloride (98-107) mmol/L Carbon Dioxide (21-32) mmol/L Anion Gap (3-11) BUN (6-23) mg/dl BUN/Creatinine Ratio (10-20) Glucose 286 H (70-99(Fasting)) mg/dl POC Glucose 346 H* 315 H* (70-99) mg/dl 11/17/23 Range/Units 06:42 Potassium 3.2 L (3.5-5.1) mmol/L Chloride 90 L (98-107) mmol/L Carbon Dioxide 33 H (21-32) mmol/L Anion Gap 14 H (3-11) BUN 39 H (6-23) mg/dl BUN/Creatinine Ratio 48.1 H (10-20) Glucose (70-99(Fasting)) mg/dl POC Glucose (70-99) mg/dl PG Care Time/CCT Total # of Minutes Spent Total Time Spent with Patient: Total time spent is greater than 50% in coordination of care (as documented) at patient's floor/unit and/or counseling patient: Coding Level of Care Code 41496 SUB INP/OBS CARE 2/35MIN Diagnoses Acute heart failure with preserved ejection fraction (HFpEF) I50.31 Acute and chronic respiratory failure with hypoxia J96.21 Chronic respiratory failure with hypoxia and hypercapnia J96.11; J96.12 Obesity hypoventilation syndrome E66.2 History of pulmonary embolism Z86.711 Type 2 diabetes mellitus without complication, with long-term current use of insulin E11.9; Z79.4 Diabetes mellitus type: type 2 Diabetes mellitus penitentiary insulin use: with computer terminal operator use Diabetes mellitus complication status: without complication Generalized anxiety disorder F41.1 (6) Diabetes Diabetes mellitus type: type 2 Diabetes mellitus computer terminal operator insulin use: with computer terminal operator use Diabetes mellitus complication status: without complication Qualified Code(s): E11.9 - Type 2 diabetes mellitus without complications; Z79.4 - long-term (current) use of insulin
[2023-11-18 07:04] LABS: Anion Gap 8 (3-11); BUN Creatinine Ratio 53.6 (10-20); Blood Urea Nitrogen 45 mg/dl (6-23); Calcium 9.6 mg/dl (8.6-10.3); Carbon Dioxide 38 mmol/L (21-32); Chloride 92 mmol/L (98-107); Creatinine Clr Calc Pharmacy 74.7 ml/min; Est GFR (African American) 86.3 ml/min; Est GFR (Non-African American) 74.5 ml/min; Glucose 105 mg/dl (70-99(Fasting)); Sodium 138 mmol/L (136-145)
--- NOTE | 2023-11-18 07:36 | Hospitalist Progress Note ---
Date of Service November 18, 2023 Assessment & Plan (1) Acute heart failure with preserved ejection fraction (HFpEF): Plan: Acute heart failure with preserved ejection fraction/acute on chronic respiratory failure with hypoxia/obesity hypoventilation syndrome-recent readm ission on admission switched to IV Lasix twice daily from p.o. Bumex 11/13, she appeared to be euvolemic after 2 doses of IV Lasix and was thus switched back to p.o. Bumex Does have dependent edema Chest x-ray 11/14 raised question of a pneumonia. Ceftin and azithromycin as with some leukocytosis, does not have symptoms of pneumonia (2) Chronic respiratory failure with hypoxia and hypercapnia: Plan: COPD--She is not in a COPD flare at this time Discontinued IV Solu-Medrol 11/13 Switched to p.o. prednisone tapering dose-- Prednisone 30mg Fluticasone, ipratropium, levalbuterol, umeclidinium/vilanterol try hypertonic saline to help move mucus (3) Obesity hypoventilation syndrome: Plan: BMI is 41, likely a bigger factor in peripheral edema chronically wears 3 L oxygen and uses Trilogy at hs (4) Diabetes: Plan: Diabetes mellitus- Glucose was uncontrolled initially when she was put on Solu-Medrol Now transition to p.o. prednisone Reducing insulin dosing as Prednisone is being tapered down On her home dose of Lantus 68 units, she had a hypoglycemic episode this morning Currently on Lantus 55 units starting 11/16 (5) Generalized anxiety disorder: Plan Anxiety/chronic pain- Continue alprazolam, buprenorphine-naloxone, quetiapine History of pulmonary embolism- Patient has had enoxaparin on hold due to concerns regarding bruising Admission and Anticipated Discharge Date Admission Date: November 14, 2023 Subjective difficult sitation, anxiety plus some medical issues for SOB, pt has housing challenges feels still with some LE edema feels she cannot get cough up Physical Exam Physical Exam: poor air movement no wheezes, no focal loss Results & Data Results & Data Vital Signs (Past 12 Hours) Vital Signs Temp Pulse Pulse Resp BP BP Pulse Ox 11/18/23 07:27 90 18 93 11/18/23 07:21 99 H 11/18/23 07:11 97.5 F L 104 H 20 126/90 92 11/18/23 02:38 97.5 F L 95 H 18 113/71 91 11/17/23 22:13 97.5 F L 96 H 18 105/70 94 11/17/23 22:00 107 H 11/17/23 20:04 11/17/23 19:45 105 H 18 92 O2 Del Method 11/18/23 07:27 Room Air 11/18/23 07:21 11/18/23 07:11 Room Air 11/18/23 02:38 Room Air 11/17/23 22:13 Room Air 11/17/23 22:00 11/17/23 20:04 Room Air 11/17/23 19:45 Room Air Laboratory Results review chemistry, low potassium po augmentation ordered mag check in am PG Care Time/CCT Total # of Minutes Spent Total Time Spent with Patient: Total time spent is greater than 50% in coordination of care (as documented) at patient's floor/unit and/or counseling patient: Coding Level of Care Code 82929 SUB INP/OBS CARE 2/35MIN Diagnoses Acute heart failure with preserved ejection fraction (HFpEF) I50.31 Chronic respiratory failure with hypoxia and hypercapnia J96.11; J96.12 Obesity hypoventilation syndrome E66.2 Type 2 diabetes mellitus without complication, with long-term current use of insulin E11.9; Z79.4 Diabetes mellitus complication status: without complication Diabetes mellitus meterman insulin use: with usp use Diabetes mellitus type: type 2 Generalized anxiety disorder F41.1 (4) Diabetes Diabetes mellitus complication status: without complication Diabetes mellitus usp insulin use: with usp use Diabetes mellitus type: type 2 Qualified Code(s): E11.9 - Type 2 diabetes mellitus without complications; Z79.4 - intermediate (current) use of insulin
[2023-11-18] MEDS: POTASSIUM CHLORIDE CRTAB 20 MEQ TABCR PO STA (17:29)
[2023-11-18] MEDS: SODIUM CHLOR 7% 4 ML NEB NEB SCH (18:31)
[2023-11-19 07:40] LABS: BUN Creatinine Ratio 50.6 (10-20); Calcium 9.9 mg/dl (8.6-10.3); Creatinine Clr Calc Pharmacy 70.6 ml/min; Est GFR (African American) 80.5 ml/min; Est GFR (Non-African American) 69.5 ml/min; Potassium 2.8 mmol/L (3.5-5.1)
[2023-11-19] MEDS: POTASSIUM CHLORIDE CRTAB 20 MEQ TABCR PO SCH (08:10)
[2023-11-19 08:25] LABS: Uric Acid 11.8 mg/dl (2.6-7.2)
[2023-11-19 14:06] LABS: Influenza A virus by PCR Negative (Neg); Influenza B virus by PCR Negative (Neg); RSV by PCR Negative (Neg); SARS CoV2 RNA(COVID-19) Ceph NEGATIVE (Negative)
--- NOTE | 2023-11-19 16:20 | Hospitalist Progress Note ---
Date of Service November 19, 2023 Assessment & Plan (1) Acute heart failure with preserved ejection fraction (HFpEF): Plan: Acute on chronic HFpEF-with leg swelling, mild hypoxia now resolved Given IV Lasix initially and now on home Bumex 2 Mg p.o. twice daily and metolaz one 3 times a week Add TIGRE hose as some component of dependent edema/venous stasis Chest x-ray 11/14 raised question of a pneumonia in the lingula and atelectasis on the right. Being treated with 5-day course of Ceftin and azithromycin Follow BMP and replace electrolytes-give 120 mill equivalents potassium chloride today Follow daily weights, low-sodium diet, and add fluid restriction of 2000 mL/day (2) Chronic respiratory failure with hypoxia and hypercapnia: Plan: Acute on chronic respiratory failure with hypoxia and hypercapnia-hypoxia now resolved Continue NIV at bedtime COPD--She is not in a COPD flare at this time-discontinued IV Solu-Medrol 11/13 Switched to p.o. prednisone tapering dose-- Prednisone 20mg for tomorrow Continue fluticasone, ipratropium, levalbuterol, umeclidinium/vilanterol Continue hypertonic saline to help move mucus x 3 days (3) Generalized anxiety disorder: Plan: She is finally willing to start low-dose Celexa 10 mg daily for significant anxiety which greatly contributes to multiple recurrent hospitalizations Continue Seroquel, Xanax (4) Gout: Plan: Had an acute flare again last week which is now improved Started on allopurinol 3 weeks ago and repeat uric acid level is even higher at 11.8 Increase allopurinol 300 mg daily Follow uric acid level in 1 to 2 weeks as an outpatient (5) Constipation: Plan: Add on daily fleets enema as needed (6) Obesity hypoventilation syndrome: Plan: BMI is 41, likely a bigger factor in peripheral edema chronically wears 3 L oxygen and uses Trilogy at Recently prescribed Ozempic but has not yet started it as an outpatient (7) Diabetes: Plan: Glucose was uncontrolled initially when she was put on Kets-Asvmft-yfs improved with transitioning to oral prednisone Continue Lantus and NovoLog and titrate as needed Starting Ozempic as an outpatient (8) Multiple myeloma: Plan: Has a history of such and was treated with stem cell transplant in 2015. 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 twice daily which is likely contributing to her flulike symptoms as COVID/flu/RSV negative, afebrile History of pulmonary embolism- Patient has had enoxaparin on hold due to concerns regarding bruising-will restart given high risk with underlying multiple myeloma Disposition-continued stay Admission and Anticipated Discharge Date Admission Date: November 14, 2023 Subjective Patient reports feeling very drained and like flulike symptoms today but thinks it could be from decreasing her Suboxone dose. She feels her legs are still swollen. No acute gout issues at this time. Had some nausea yesterday which is better today. She reports feeling much better after talking to the psychiatric nurse liaison and is now willing to trial Celexa Telemetry with sinus tachycardia and sinus rhythm with rates in low 100s, PACs and PVCs Physical Exam Constitutional: WD/WN, vitals as above Respiratory: normal respiratory effort, lungs clear to auscultation Cardiovascular: Rate/Rhythm: regular rate and regular rhythm Heart Sounds: no murmur Extremities: + edema (1+ pitting edema of the legs and ankles charleen aterally) Psychiatric: Orientation: alert and oriented x 3 Affect: + anxious affect Results & Data Results & Data Vital Signs (Past 12 Hours) Vital Signs Temp Pulse Pulse Resp BP Pulse Ox O2 Del Method 11/19/23 15:48 36.3 C L 64 16 127/86 94 Room Air 11/19/23 15:28 73 17 94 Room Air 11/19/23 14:12 103 H 11/19/23 11:37 36.3 C L 96 H 16 107/62 93 Room Air 11/19/23 11:03 102 H 16 96 Room Air 11/19/23 08:10 Room Air 11/19/23 08:00 36.5 C 100 H 20 120/81 91 Room Air 11/19/23 07:12 92 H 16 92 Room Air 11/19/23 07:05 89 Laboratory Results BMP, magnesium, and uric acid level reviewed PG Care Time/CCT Total # of Minutes Spent Total Time Spent with Patient: Total time spent is greater than 50% in coordination of care (as documented) at patient's floor/unit and/or counseling patient: Coding Level of Care Code 45082 SUB INP/OBS CARE 2/35MIN Diagnoses Acute heart failure with preserved ejection fraction (HFpEF) I50.31 Chronic respiratory failure with hypoxia and hypercapnia J96.11; J96.12 Generalized anxiety disorder F41.1 Gout M10.9 Constipation K59.00 Obesity hypoventilation syndrome E66.2 Type 2 diabetes mellitus without complication, with long-term current use of insulin E11.9; Z79.4 Diabetes mellitus complication status: without complication Diabetes mellitus terminal computer operator insulin use: with senior care use Diabetes mellitus type: type 2 Multiple myeloma C90.00 Multiple myeloma remission status: unspecified COPD (chronic obstructive pulmonary disease) J44.9 COPD type: unspecified COPD Hypokalemia E87.6 (7) Diabetes Diabetes mellitus complication status: without complication Diabetes mellitus terminal computer operator insulin use: with senior care use Diabetes mellitus type: type 2 Qualified Code(s): E11.9 - Type 2 diabetes mellitus without complications; Z79.4 - terminal computer operator (current) use of 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 (9) COPD (chronic obstructive pulmonary disease) COPD type: unspecified COPD Qualified Code(s): J44.9 - Chronic obstructive pulmonary disease, unspecified
[2023-11-19] MEDS: ALPRAZolam 0.5 MG TABLET PO SCH (17:10)
[2023-11-19] MEDS: NYSTATIN SUSP 500,000 U/5 ML UDC PO SCH (17:10)
[2023-11-19] MEDS: ENOXAPARIN 150 MG/ML SYR SQ SCH (17:10)
[2023-11-20 07:06] LABS: BUN Creatinine Ratio 60.5 (10-20); Calcium 9.3 mg/dl (8.6-10.3); Creatinine Clr Calc Pharmacy 72.6 ml/min; Est GFR (African American) 83.9 ml/min; Est GFR (Non-African American) 72.4 ml/min; Magnesium 2.1 mg/dl (1.7-2.4); Potassium 2.8 mmol/L (3.5-5.1)
[2023-11-20] MEDS: POTASSIUM CHLORIDE CRTAB 20 MEQ TABCR PO SCH (08:59)
[2023-11-20] MEDS: allopurinoL 300 MG TAB PO SCH (09:00)
[2023-11-20] MEDS: predniSONE 20 MG TAB PO SCH (09:01)
[2023-11-20] MEDS: CITALOPRAM 20 MG TAB PO SCH (09:01)
--- NOTE | 2023-11-20 11:41 | Hospitalist Progress Note ---
Date of Service November 20, 2023 Assessment & Plan (1) Acute heart failure with preserved ejection fraction (HFpEF): Plan: Acute on chronic HFpEF-with leg swelling, mild hypoxia now resolved Given IV Lasix initially and now on home Bumex 2 Mg p.o. twice daily and metolaz one 3 times a week Added TIGRE hose as some component of dependent edema/venous stasis but she is still not wearing them Chest x-ray 11/14 raised question of a pneumonia in the lingula and atelectasis on the right. Was treated with 7-day course of Ceftin and azithromycin 5-day course Follow BMP and replace electrolytes-increase potassium chloride to 40 mEq 4 times daily Follow daily weights, low-sodium diet, and fluid restriction of 2000 mL/day-she thinks that this is not enough fluid for her which is exactly why she keeps coming in volume overloaded-stressed the importance of fluid restriction (2) Chronic respiratory failure with hypoxia and hypercapnia: Plan: Acute on chronic respiratory failure with hypoxia and hypercapnia-hypoxia now resolved Continue NIV at bedtime-she claims that respiratory therapy is not offering her this at bedtime but every night there is a note that says she is refusing at-she will try it tonight COPD--She is not in a COPD flare at this time-discontinued IV Solu-Medrol 11/13 and switched to p.o. prednisone tapering dose--decrease back to 10 mg daily tomorrow which is her home dose Continue fluticasone, ipratropium, levalbuterol, umeclidinium/vilanterol Continue hypertonic saline to help move mucus x 3 days (3) Generalized anxiety disorder: Plan: She is finally willing to start low-dose Celexa 10 mg daily for significant anxiety which greatly contributes to multiple recurrent hospitalizations Recommend increasing Celexa to 20 mg daily after 3 days-plan to increase to 20 mg daily on 11/22 Continue Seroquel, Xanax (4) Hypokalemia: Plan: Remains severely low at 2.8 Replacing with oral potassium but increase to 40 mEq 4 times daily Follow BMP and magnesium (5) Gout: Plan: Had an acute flare again last week which is now improved Started on allopurinol 3 weeks ago and repeat uric acid level is even higher now at 11.8 Increased allopurinol to 300 mg daily Follow uric acid level in 1 to 2 weeks as an outpatient (6) Constipation: Plan: Continue daily fleets enema as needed (7) Obesity hypoventilation syndrome: Plan: BMI is 41, likely a bigger factor in peripheral edema chronically wears 3 L oxygen and uses Trilogy at hs-doubtful about compliance at home but she really has not been home much to use it as she is always in the hospital Recently prescribed Ozempic but has not yet started it as an outpatient (8) Diabetes: Plan: Glucose was uncontrolled initially when she was put on Utds-Snmppa-ixe improved with transitioning to oral prednisone She does tend to sneak snacks from the vending machine but states that she does not eat sweets although nurses are finding wrappers in her room Continue Lantus and NovoLog and titrate as needed Starting Ozempic as an outpatient (9) Multiple myeloma: Plan: Has a history of such and was treated with stem cell transplant in 2014. 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 twice daily which is likely contributing to her flulike symptoms as COVID/flu/RSV negative, afebrile History of pulmonary embolism-continue enoxaparin 1.5 melinda/keg daily indefinitely given high risk with underlying multiple myeloma Disposition-continued stay, but can discharge to home once potassium closer to normal range. High risk for readmission-I believe this is her 14th admission since 04/2023 Admission and Anticipated Discharge Date Admission Date: November 14, 2023 Subjective Patient was getting snacks from the vending machine but states that it was on the almonds but the nurses found wrappers of sweets in her room. Blood sugar was over 500 but is now improved. Still complains of leg swelling yet begs for her fluid restriction to be lifted. She still feels drained and had sweats overnight likely related to decreasing her dose of Suboxone recently. She is accepting of starting Celexa for anxiety today and is hoping that this will help her keep from panicking at home and coming back to the hospital all the time. Sinus tachycardia normal sinus rhythm with rates in 80s to low 100s with PACs and PVCs on telemetry Physical Exam Constitutional: WD/WN, vitals as above Respiratory: normal respiratory effort, lungs clear to auscultation Cardiovascular: Rate/Rhythm: regular rate and regular rhythm Heart Sounds: no murmur Extremities: + edema (1+ pitting edema of the legs and ankles bilaterally) Psychiatric: Orientation: alert and oriented x 3 Affect: + anxious affect Results & Data Results & Data Vital Signs (Past 12 Hours) Vital Signs Temp Pulse Pulse Resp BP BP Pulse Ox 11/20/23 09:10 11/20/23 07:35 92 H 11/20/23 07:32 36.3 C L 89 20 120/87 97 11/20/23 07:15 85 16 92 11/20/23 03:04 36.9 C 101 H 20 110/64 93 11/20/23 01:43 11/19/23 23:46 103 H O2 Del Method 11/20/23 09:10 Room Air 11/20/23 07:35 11/20/23 07:32 Room Air 11/20/23 07:15 Room Air 11/20/23 03:04 Room Air 11/20/23 01:43 Room Air 11/19/23 23:46 Laboratory Results BMP, magnesium reviewed PG Care Time/CCT Total # of Minutes Spent Total Time Spent with Patient: Total time spent is greater than 50% in coordination of care (as documented) at patient's floor/unit and/or counseling patient: Coding Level of Care Code 36927 SUB INP/OBS CARE 2/35MIN Diagnoses Acute heart failure with preserved ejection fraction (HFpEF) I50.31 Chronic respiratory failure with hypoxia and hypercapnia J96.11; J96.12 Generalized anxiety disorder F41.1 Hypokalemia E87.6 Gout M10.9 Constipation K59.00 Obesity hypoventilation syndrome E66.2 Type 2 diabetes mellitus without complication, with long-term current use of insulin E11.9; Z79.4 Diabetes mellitus complication status: without complication 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: with longterm use Diabetes mellitus type: type 2 Multiple myeloma C90.00 Multiple myeloma remission status: unspecified COPD (chronic obstructive pulmonary disease) J44.9 COPD type: unspecified COPD (8) Diabetes Diabetes mellitus complication status: without complication Diabetes mellitus longterm insulin use: with longterm use Diabetes mellitus type: type 2 Qualified Code(s): E11.9 - Type 2 diabetes mellitus without complications; Z79.4 - ferry terminal agent (current) use of insulin (9) Multiple myeloma Multiple myeloma remission status: unspecified Qualified Code(s): C90.00 - Multiple myeloma not having achieved remission (10) COPD (chronic obstructive pulmonary disease) COPD type: unspecified COPD Qualified Code(s): J44.9 - Chronic obstructive pulmonary disease, unspecified
[2023-11-20] MEDS: SOD PHOSPHATE/SOD BIPHOSPHATE ENEMA 132 ML BTL PR PRN (11:45)
[2023-11-21 06:52] LABS: Hematocrit (blood only) 45.3 % (37.0-47.0); Hemoglobin 14.9 g/dl (12.0-16.0); Mean Corpuscular Hemoglobin 26.8 pg (25.0-34.0); Mean Corpuscular Hgb Conc 32.9 g/dL (32.0-36.0); Mean Corpuscular Volume 81.5 fL (80.0-100.0); Mean Platelet Volume 9.5 fL (9.4-12.4); Platelet Count 333 K/uL (130-400); RDW Coefficient of Variation 16.7 % (11.5-14.5); RDW Standard Deviation 48.7 fL (36.4-46.3); Red Blood Count 5.56 M/uL (4.20-5.40); White Blood Count 12.98 K/ul (4.8-10.8)
[2023-11-21 07:20] LABS: BUN Creatinine Ratio 50.5 (10-20); Calcium 9.6 mg/dl (8.6-10.3); Creatinine Clr Calc Pharmacy 64.2 ml/min; Est GFR (African American) 74.4 ml/min; Est GFR (Non-African American) 64.2 ml/min; Potassium 2.9 mmol/L (3.5-5.1)
[2023-11-21] MEDS: predniSONE 10 MG TABLET PO SCH (08:43)
[2023-11-21] MEDS: IBUPROFEN 200 MG TAB PO STA (09:39)
--- NOTE | 2023-11-21 12:10 | Hospitalist Progress Note ---
Date of Service November 21, 2023 Assessment & Plan (1) Hypokalemia: Plan: Remains severely low at 2.9 Worsened by diuresis, Will hold Bumex for 1 day on account of contraction alkalosis Replacing with oral potassium but increase to 40 mEq 4 times daily Follow BMP and magnesium (2) Acute heart failure with preserved ejection fraction (HFpEF): Plan: Acute on chronic HFpEF-with leg swelling, mild hypoxia now resolved Given IV Lasix initially and now on home Bumex 2 Mg p.o. twice daily and metolazone 3 times a week (Will hold p.o. Bumex for 1 day on account of contraction alkalosis and hypokalemia) Added TIGRE hose as some component of dependent edema/venous stasis but she is still not wearing them Chest x-ray 11/14 raised question of a pneumonia in the lingula and atelectasis on the right. Was treated with 7-day course of Ceftin and azithromycin 5-day course Follow BMP and replace electrolytes-increase potassium chloride to 40 mEq 4 times daily Follow daily weights, low-sodium diet, and fluid restriction of 2000 mL/day-she thinks that this is not enough fluid for her which is exactly why she keeps coming in volume overloaded-stressed the importance of fluid restriction (3) Chronic respiratory failure with hypoxia and hypercapnia: Plan: Acute on chronic respiratory failure with hypoxia and hypercapnia-hypoxia now re solved Continue NIV at bedtime-she claims that respiratory therapy is not offering her this at bedtime but every night there is a note that says she is refusing at-she will try it tonight COPD--She is not in a COPD flare at this time-discontinued IV Solu-Medrol 11/13 and switched to p.o. prednisone tapering dose--decrease back to 10 mg daily today which is her home dose Continue fluticasone, ipratropium, levalbuterol, umeclidinium/vilanterol Continue hypertonic saline to help move mucus x 3 days (4) Generalized anxiety disorder: Plan: She is finally willing to start low-dose Celexa 10 mg daily for significant anxiety which greatly contributes to multiple recurrent hospitalizations Recommend increasing Celexa to 20 mg daily after 3 days-plan to increase to 20 mg daily on 11/22 Continue Seroquel, Xanax (5) Gout: Plan: Had an acute flare again last week which is now improved Started on allopurinol 3 weeks ago and repeat uric acid level is even higher now at 11.8 Increased allopurinol to 300 mg daily Follow uric acid level in 1 to 2 weeks as an outpatient (6) Constipation: Plan: Continue daily fleets enema as needed (7) Obesity hypoventilation syndrome: Plan: BMI is 41, likely a bigger factor in peripheral edema chronically wears 3 L oxygen and uses Trilogy at hs-doubtful about compliance at home but she really has not been home much to use it as she is always in the hospital Recently prescribed Ozempic but has not yet started it as an outpatient (8) Diabetes: Plan: Glucose was uncontrolled initially when she was put on Osec-Ailwct-pmx improved with transitioning to oral prednisone She does tend to sneak snacks from the vending machine but states that she does not eat sweets although nurses are finding wrappers in her room Continue Lantus and NovoLog and titrate as needed Starting Ozempic as an outpatient (9) Multiple myeloma: Plan: Has a history of such and was treated with stem cell transplant in 2014. 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 twice daily which is likely contributing to her flulike symptoms as COVID/flu/RSV negative, afebrile History of pulmonary embolism-continue enoxaparin 1.5 melinda/keg daily indefinitely given high risk with underlying multiple myeloma Disposition-continued stay, but can discharge to home once potassium closer to normal range. High risk for readmission-I believe this is her 14th admission since 04/2023 Admission and Anticipated Discharge Date Admission Date: November 14, 2023 Subjective Patient seen and examined, feeling frustrated about her potassium levels but denies any weakness or shortness of breath. Review of Systems Review of Systems: All systems reviewed are negative, apart from the ones contained in the history. Physical Exam Physical Exam: The patient is awake, alert and oriented 3, well developed and well nourished, normocephalic and atraumatic, lying in bed and in no acute distress. HEENT--PERRL, EOMI, mucous membranes and oropharynx mildly dry Neck--supple. No JVD. No bruits. Thyroid normal, trachea midline, no adenopathy. Heart--normal S1 and S2. No murmurs, rubs or gallops. Lungs--clear bilaterally, no respiratory distress, no accessory muscle use. Abdomen--normal bowel sounds and soft. Extremities--no cyanosis or clubbing. No edema. Dermatologic--normal skin turgor, normal color, no abnormal lymph nodes, no rash. Neurologic--cranial nerves II through XII grossly intact. Rheumatologic--normal range of motion. Psychiatric--normal affect. Results & Data Results & Data Vital Signs (Past 12 Hours) Vital Signs Temp Pulse Pulse Resp BP BP Pulse Ox 11/21/23 11:27 98 H 18 94 11/21/23 08:45 11/21/23 08:07 97.5 F L 87 20 112/75 95 11/21/23 07:26 18 90 11/21/23 07:19 91 H 11/21/23 02:02 97.7 F 104 H 18 138/84 95 11/21/23 00:55 11/21/23 00:13 101 H O2 Del Method 11/21/23 11:27 Room Air 11/21/23 08:45 Room Air 11/21/23 08:07 Room Air 11/21/23 07:26 Room Air 11/21/23 07:19 11/21/23 02:02 Room Air 11/21/23 00:55 Room Air, CPAP 11/21/23 00:13 PG Care Time/CCT Total # of Minutes Spent Total Time Spent with Patient: Total time spent is greater than 50% in coordination of care (as documented) at patient's floor/unit and/or counseling patient: Coding Level of Care Code 36735 SUB INP/OBS CARE 2/35MIN Diagnoses Hypokalemia E87.6 Acute heart failure with preserved ejection fraction (HFpEF) I50.31 Chronic respiratory failure with hypoxia and hypercapnia J96.11; J96.12 Generalized anxiety disorder F41.1 Gout M10.9 Constipation K59.00 Obesity hypoventilation syndrome E66.2 Type 2 diabetes mellitus without complication, with long-term current use of insulin E11.9; Z79.4 Diabetes mellitus type: type 2 Diabetes mellitus longterm insulin use: with terminal carman use Diabetes mellitus complication status: without complication Multiple myeloma C90.00 Multiple myeloma remission status: unspecified COPD (chronic obstructive pulmonary disease) J44.9 COPD type: unspecified COPD Time Spent (min) 35 (8) Diabetes Diabetes mellitus type: type 2 Diabetes mellitus longterm insulin use: with terminal carman use Diabetes mellitus complication status: without complication Qualified Code(s): E11.9 - Type 2 diabetes mellitus without complications; Z79.4 - alf (current) use of insulin (9) Multiple myeloma Multiple myeloma remission status: unspecified Qualified Code(s): C90.00 - Multiple myeloma not having achieved remission (10) COPD (chronic obstructive pulmonary disease) COPD type: unspecified COPD Qualified Code(s): J44.9 - Chronic obstructive pulmonary disease, unspecified
[2023-11-22 07:12] LABS: BUN Creatinine Ratio 53.8 (10-20); Creatinine Clr Calc Pharmacy 79.2 ml/min; Est GFR (African American) 94.4 ml/min; Est GFR (Non-African American) 81.5 ml/min; Potassium 3.1 mmol/L (3.5-5.1)
[2023-11-22 08:16] LABS: Troponin I High Sensitivity 32.4 pg/ml (0-14)
[2023-11-22] MEDS: NITROGLYCERIN SL 0.4 MG/TAB TAB SL STA (08:21)
[2023-11-22] MEDS: MoRPHine SULFATE 2 MG/ML CARP IV STA (08:28)
--- NOTE | 2023-11-22 12:28 | Electrocardiogram Report ---
Test Reason : Blood Pressure : / mmHG Vent. Rate : 097 BPM Atrial Rate : 097 BPM P-R Int : 136 ms QRS Dur : 080 ms QT Int : 354 ms P-R-T Axes : 023 017 045 degrees QTc Int : 449 ms Normal sinus rhythm Inferior infarct (cited on or before 16-AUG-2023) Anterior infarct , age undetermined Abnormal ECG When compared with ECG of 14-NOV-2023 06:17, Anterior infarct is now Present Confirmed by Roel Willams ([id number]) on 11/22/2023 12:28:18 PM Referred By: REFERRED SELF Confirmed By:Roel Willams
--- NOTE | 2023-11-22 12:59 | Hospitalist Progress Note ---
Date of Service November 22, 2023 Assessment & Plan (1) Chest pain: Plan: Complained of 9 out of 10 chest pain this morning EKG did not show any ST changes, showed evidence of inferior infarct like her previous EKGs Troponins have been normal Chest pain resolved, was possibly due to her anxiety (2) Hypokalemia: Plan: Potassium 3.1 today Will Continue to hold Bumex for 1 day on account of contraction alkalosis Replacing with oral potassium but increase to 40 mEq 4 times daily Follow BMP and magnesium (3) Acute heart failure with preserved ejection fraction (HFpEF): Plan: Acute on chronic HFpEF-with leg swelling, mild hypoxia now resolved Given IV Lasix initially and now on home Bumex 2 Mg p.o. twice daily and metolazone 3 times a week (Will hold p.o. Bumex for 1 day on account of contraction alkalosis and hypokalemia) Added TIGRE hose as some component of dependent edema/venous stasis but she is still not wearing them Chest x-ray 11/14 raised question of a pneumonia in the lingula and atelectasis on the right. Was treated with 7-day course of Ceftin and azithromycin 5-day course Follow BMP and replace electrolytes-increase potassium chloride to 40 mEq 4 times daily Follow daily weights, low-sodium diet, and fluid restriction of 2000 mL/day-she thinks that this is not enough fluid for her which is exactly why she keeps coming in volume overloaded-stressed the importance of fluid restriction (4) Chronic respiratory failure with hypoxia and hypercapnia: Plan: Acute on chronic respiratory failure with hypoxia and hypercapnia-hypoxia now resolved Continue NIV at bedtime-she claims that respiratory therapy is not offering her this at bedtime but every night there is a note that says she is refusing at-she will try it tonight COPD--She is not in a COPD flare at this time-discontinued IV Solu-Medrol 11/13 and switched to p.o. prednisone tapering dose--decrease back to 10 mg daily today which is her home dose Continue fluticasone, ipratropium, levalbuterol, umeclidinium/vilanterol Continue hypertonic saline to help move mucus x 3 days (5) Generalized anxiety disorder: Plan: She is finally willing to start low-dose Celexa 10 mg daily for significant anxiety which greatly contributes to multiple recurrent hospitalizations Recommend increasing Celexa to 20 mg daily after 3 days-plan to increase to 20 mg daily on 11/22 Continue Seroquel, Xanax (6) Gout: Plan: Had an acute flare again last week which is now improved Started on allopurinol 3 weeks ago and repeat uric acid level is even higher now at 11.8 Increased allopurinol to 300 mg daily Follow uric acid level in 1 to 2 weeks as an outpatient (7) Constipation: Plan: Continue daily fleets enema as needed (8) Obesity hypoventilation syndrome: Plan: BMI is 41, likely a bigger factor in peripheral edema chronically wears 3 L oxygen and uses Trilogy at hs-doubtful about compliance at home but she really has not been home much to use it as she is always in the hospital Recently prescribed Ozempic but has not yet started it as an outpatient (9) Diabetes: Plan: Glucose was uncontrolled initially when she was put on Gjiy-Eqfact-ham improved with transitioning to oral prednisone She does tend to sneak snacks from the vending machine but states that she does not eat sweets although nurses are finding wrappers in her room Continue Lantus and NovoLog and titrate as needed Starting Ozempic as an outpatient (10) Multiple myeloma: Plan: Has a history of such and was treated with stem cell transplant in 2015. 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 twice daily which is likely contributing to her flulike symptoms as COVID/flu/RSV negative, afebrile History of pulmonary embolism-continue enoxaparin 1.5 melinda/keg daily indefinitely given high risk with underlying multiple myeloma Disposition-continued stay, but can discharge to home once potassium closer to normal range. High risk for readmission-I believe this is her 14th admission since 04/2023 Admission and Anticipated Discharge Date Admission Date: November 14, 2023 Subjective Patient seen and examined, Complained of 9 out of 10 chest pain this morning Review of Systems Review of Systems: All systems reviewed are negative, apart from the ones contained in the history. Physical Exam Physical Exam: The patient is awake, alert and oriented 3, well developed and well nourished, normocephalic and atraumatic, lying in bed and in no acute distress. HEENT--PERRL, EOMI, mucous membranes and oropharynx mildly dry Neck--supple. No JVD. No bruits. Thyroid normal, trachea midline, no adeno tosin. Heart--normal S1 and S2. No murmurs, rubs or gallops. Lungs--clear bilaterally, no respiratory distress, no accessory muscle use. Abdomen--normal bowel sounds and soft. Extremities--no cyanosis or clubbing. No edema. Dermatologic--normal skin turgor, normal color, no abnormal lymph nodes, no rash. Neurologic--cranial nerves II through XII grossly intact. Rheumatologic--normal range of motion. Psychiatric--normal affect. Results & Data Results & Data Vital Signs (Past 12 Hours) Vital Signs Temp Pulse Pulse Resp BP BP Pulse Ox 11/22/23 11:51 98.2 F 69 18 120/71 96 11/22/23 10:10 102 H 18 94 11/22/23 08:04 87 20 148/102 H 98 11/22/23 07:47 96 H 20 168/109 H 96 11/22/23 07:45 11/22/23 07:43 90 20 178/121 H 96 11/22/23 07:35 97.7 F 99 H 22 184/142 H 94 11/22/23 07:13 86 11/22/23 03:54 98.1 F 85 20 112/64 97 11/22/23 02:08 12 O2 Del Method O2 Flow Rate 11/22/23 11:51 Room Air 11/22/23 10:10 Room Air 11/22/23 08:04 Nasal Cannula 2 11/22/23 07:47 Nasal Cannula 2 11/22/23 07:45 Room Air 11/22/23 07:43 Room Air 11/22/23 07:35 Room Air 11/22/23 07:13 11/22/23 03:54 CPAP 11/22/23 02:08 PG Care Time/CCT Total # of Minutes Spent Total Time Spent with Patient: Total time spent is greater than 50% in coordination of care (as documented) at patient's floor/unit and/or counseling patient: Coding Level of Care Code 60492 SUB INP/OBS CARE 2/35MIN Diagnoses Chest pain R07.9 Hypokalemia E87.6 Acute heart failure with preserved ejection fraction (HFpEF) I50.31 Chronic respiratory failure with hypoxia and hypercapnia J96.11; J96.12 Generalized anxiety disorder F41.1 Gout M10.9 Constipation K59.00 Obesity hypoventilation syndrome E66.2 Type 2 diabetes mellitus without complication, with long-term current use of insulin E11.9; Z79.4 Diabetes mellitus type: type 2 Diabetes mellitus veneer sawyer insulin use: with fci use Diabetes mellitus complication status: without complication Multiple myeloma C90.00 Multiple myeloma remission status: unspecified COPD (chronic obstructive pulmonary disease) J44.9 COPD type: unspecified COPD Time Spent (min) 35 (9) Diabetes Diabetes mellitus type: type 2 Diabetes mellitus veneer sawyer insulin use: with veneer sawyer use Diabetes mellitus complication status: without complication Qualified Code(s): E11.9 - Type 2 diabetes mellitus without complications; Z79.4 - half-way (current) use of insulin (10) Multiple myeloma Multiple myeloma remission status: unspecified Qualified Code(s): C90.00 - Multiple myeloma not having achieved remission (11) COPD (chronic obstructive pulmonary disease) COPD type: unspecified COPD Qualified Code(s): J44.9 - Chronic obstructive pulmonary disease, unspecified
[2023-11-23 07:30] LABS: BUN Creatinine Ratio 44.6 (10-20); Calcium 8.9 mg/dl (8.6-10.3); Creatinine Clr Calc Pharmacy 110.2 ml/min; Est GFR (African American) 115.8 ml/min; Est GFR (Non-African American) 99.9 ml/min; Potassium 4.7 mmol/L (3.5-5.1)
[2023-11-23] MEDS: CITALOPRAM 20 MG TAB PO SCH (07:44)
--- NOTE | 2023-11-23 11:39 | Discharge Summary ---
Date of Service November 23, 2023 Admission HPI Per Admitting Provider The patient is a 63-year-old female with a past medical history of multiple recent admissions for COPD exacerbation, diabetes mellitus type 2, gout, chronic hypoxic respiratory failure, multiple myeloma, COPD, generalized anxiety, chronic respiratory failure, moderate persistent asthma, history of PE, obesity, hypoventilation syndrome, and HFpEF. The patient had recently been discharged after admission from 11/06-11/12 for COPD exacerbation. From the ED she did receive a hour-long nebulizer which she reports did not give much improvement. Admission Exam (Per Admitting) Constitutional The patient is awake, alert and oriented 3, well developed and well nourished, normocephalic and atraumatic, lying in bed and in no acute distress. HEENT--PERRL, EOMI, mucous membranes and oropharynx mildly dry Neck--supple. No JVD. No bruits. Thyroid normal, trachea midline, no adenopathy. Heart--normal S1 and S2. No murmurs, rubs or gallops. Lungs--clear bilaterally, no respiratory distress, no accessory muscle use. Abdomen--normal bowel sounds and soft. Extremities--no cyanosis or clubbing. No edema. Dermatologic--normal skin turgor, normal color, no abnormal lymph nodes, no rash. Neurologic--cranial nerves II through XII grossly intact. Rheumatologic--normal range of motion. Psychiatric--normal affect. Discharge Data Consultations 11/14/23 00:25 ED Decision to Admit Stat Hospital Course (1) Chest pain: Complained of 9 out of 10 chest pain this morning EKG did not show any ST changes, showed evidence of inferior infarct like her previous EKGs Troponins have been normal Chest pain resolved, was possibly due to her anxiety (2) Hypokalemia: Potassium 4.7 (3) Acute heart failure with preserved ejection fraction (HFpEF): Acute on chronic HFpEF-with leg swelling, mild hypoxia now resolved Given IV Lasix initially and now on home Bumex 2 Mg p.o. twice daily and metolazone 3 times a week (Will hold p.o. Bumex for 1 day on account of c ontraction alkalosis and hypokalemia) Added TIGRE hose as some component of dependent edema/venous stasis but she is still not wearing them Chest x-ray 11/14 raised question of a pneumonia in the lingula and atelectasis on the right. Was treated with 7-day course of Ceftin and azithromycin 5-day course Follow BMP and replace electrolytes-increase potassium chloride to 40 mEq 4 times daily Follow daily weights, low-sodium diet, and fluid restriction of 2000 mL/day-she thinks that this is not enough fluid for her which is exactly why she keeps coming in volume overloaded-stressed the importance of fluid restriction (4) Chronic respiratory failure with hypoxia and hypercapnia: Acute on chronic respiratory failure with hypoxia and hypercapnia-hypoxia now resolved Continue NIV at bedtime-she claims that respiratory therapy is not offering her this at bedtime but every night there is a note that says she is refusing at-she will try it tonight COPD--She is not in a COPD flare at this time-discontinued IV Solu-Medrol 11/13 and switched to p.o. prednisone tapering dose--decrease back to 10 mg daily today which is her home dose Continue fluticasone, ipratropium, levalbuterol, umeclidinium/vilanterol Continue hypertonic saline to help move mucus x 3 days (5) Generalized anxiety disorder: She is finally willing to start low-dose Celexa 10 mg daily for significant anxiety which greatly contributes to multiple recurrent hospitalizations Recommend increasing Celexa to 20 mg daily after 3 days-plan to increase to 20 mg daily on 11/22 Continue Seroquel, Xanax (6) Gout: Had an acute flare again last week which is now improved Started on allopurinol 3 weeks ago and repeat uric acid level is even higher now at 11.8 Increased allopurinol to 300 mg daily Follow uric acid level in 1 to 2 weeks as an outpatient (7) Constipation: Continue daily fleets enema as needed (8) Obesity hypoventilation syndrome: BMI is 41, likely a bigger factor in peripheral edema chronically wears 3 L oxygen and uses Trilogy at hs-doubtful about compliance at home but she really has not been home much to use it as she is always in the hospital Recently prescribed Ozempic but has not yet started it as an outpatient (9) Diabetes: Glucose was uncontrolled initially when she was put on Isrz-Rvawsd-ahv improved with transitioning to oral prednisone She does tend to sneak snacks from the vending machine but states that she does not eat sweets although nurses are finding wrappers in her room Continue Lantus and NovoLog and titrate as needed Starting Ozempic as an outpatient (10) Multiple myeloma: Has a history of such and was treated with stem cell transplant in 2015. 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 twice daily which is likely contributing to her flulike symptoms as COVID/flu/RSV negative, afebrile History of pulmonary embolism-continue enoxaparin 1.5 melinda/keg daily indefinitely given high risk with underlying multiple myeloma Disposition-Discharge home, active follow-up with her PCP as soon as possible, also ordered outpatient CMP in 3 days Coding Level of Care Code 21303 INP/OBS DISCH >30 MIN Diagnoses Chest pain R07.9 Hypokalemia E87.6 Acute heart failure with preserved ejection fraction (HFpEF) I50.31 Chronic respiratory failure with hypoxia and hypercapnia J96.11; J96.12 Generalized anxiety disorder F41.1 Gout M10.9 Constipation K59.00 Obesity hypoventilation syndrome E66.2 Type 2 diabetes mellitus without complication, with long-term current use of insulin E11.9; Z79.4 Diabetes mellitus type: type 2 Diabetes mellitus usp insulin use: with usp use Diabetes mellitus complication status: without complication Multiple myeloma C90.00 Multiple myeloma remission status: unspecified COPD (chronic obstructive pulmonary disease) J44.9 COPD type: unspecified COPD Time Spent (min) 35
== END 2023-11-23 13:30 | disposition home or self-care (01) | DRG 291 ==
LOC: ED 20:44 → 2E 11-14 01:24 → SUATTDRO 11-14 01:24 → 2E 11-14 02:08 → 2N 11-16 15:36

== ENCOUNTER 2023-12-13 14:59 | Inpatient (IN) ==
--- OUTSIDE RECORDS SUMMARY | 2023-12-13 15:05 | External Medical Summary | Continuity of Care Document ---
Author Name Unknown Organization [facility] [id number] [place] [id number] Care Team Providers Care Printing Technician Name Role Phone Radha Barboza Primary Care Physician [phone] En[id number] Date(s): 12/09/23 - 12/09/23 [facility] 0 [facility] [address] [facility] [address] [facility] [address] [place] [address] [phone] Encounter Diagnosis COPD without exacerbation(Discharge Diagnosis) - 12/09/23 Personal history of multiple myeloma(Discharge Diagnosis) - 12/09/23 Gout(Discharge Diagnosis) - 12/09/23 Migratory pain(Discharge Diagnosis) - 12/09/23 Controlled diabetes mellitus with hyperglycemia(Discharge Diagnosis) - 12/09/23 Dissociative and conversion disorder, unspecified(Final) - Type 2 diabetes mellitus with hyperglycemia(Final) - Personal history of other diseases of the circulatory system(Final) - Gout, unspecified(Final) - Pain, unspecified(Final) - Discharge Disposition: Home or Self Care [...] 102 lancet, Refills: 0, 32G x , Pharmacy:[facility]/pharmacy #[id number] Start Date: 06/30/23 Status: Ordered allopurinol 300 mg oral tablet Start: 11/25/23 11:37:00 AM EDT, 1 tab, PO, Daily, Disp# 30 tab, Refills: 5, Pharmacy: [facility]/pharmacy #[id number] Start Date: 11/25/23 Stop Date: 05/23/24 Status: Ordered ALPRAZolam 0.5 mg oral tablet Start: 08/26/23 4:22:00 PM EDT, 1 tab, PO, bid, Disp# 90 tab, Refills: 5, Make take an extra tablet for acute panic attacks. Max 3/day, PRN: as needed for anxiety, Pharmacy: [facility]/pharmacy #[id number], Earliest Fill Date: 09/11/23 Start Date: 08/26/23 Status: Ordered bumetanide 2 mg oral tablet Start: 03/09/23 10:51:00 PM EST, See Instructions, Disp# 360 tab, Refills: 3, TAKE 2 TABLETS BY MOUTH IN THE MORNING AND 2 TABLET AT LUNCHTIME, Pharmacy: [facility]/pharmacy #[id number] Start Date: 03/09/23 Status: Ordered buprenorphine-naloxone 8 mg-2 mg sublingual film Start: 12/11/23 9:21:00 AM EDT, See Instructions, Disp# 36 film, Refills: 0, START AT HALF A FILM (4MG-1MG) TWICE A DAY. DECREASE TOTAL DOSE BY 2 MG-0.5MG EVERY 2 WEEKS UNTIL DOSE IS TAPERED TO ZERO AND DISCONTINUE THEREAFTER. DISSOLVE UNDER THE TONGUE, Note to Pharmacy: Patient attempting wean of buprenorphine. PDMP checked & CSA on file., Pharmacy: [facility]/pharmacy #[id number] Start Date: 12/11/23 Status: Ordered CeleXA Start: 11/03/23 11:27:00 AM EDT Start Date: 11/03/23 Status: Ordered citalopram 10 mg oral tablet Start: 12/09/23 11:20:00 AM EDT, 1 tab, PO, Daily, Disp# 30 tab, Refills: 2, Pharmacy: [facility]/pharmacy #[id number] Start Date: 12/09/23 Status: Ordered colchicine 0.6 mg oral tablet TAKE 2 TABLETS BY MOUTH ONCE, THEN TAKE 1 TABLET TWICE A DAY FOR 3 DAYS NEEDED FOR GOUT ATTACKS Start Date: 11/03/23 Status: Ordered Dexcom G6 Emergency Department Kit Start: 10/11/23 8:34:00 PM EDT, See Instructions, Disp# 1 kit, Test three times daily, Note to Pharmacy: Dx E11.65, Pharmacy: [facility]/pharmacy #[id number] Start Date: 10/11/23 Status: Ordered Dexcom G6 Sensor Kit Start: 11/25/23 11:27:00 AM EDT, See Instructions, Disp# 3 kit, Refills: 5, Test three times daily, Note to Pharmacy: Dx E11.65, Pharmacy: [facility]/pharmacy #[id number] Start Date: 11/25/23 Status: Ordered Dexcom G6 Transmitter Kit Start: 10/11/23 8:36:00 PM EDT, See Instructions, Disp# 1 kit, Test three times daily, Pharmacy: [facility]/pharmacy #[id number] Start Date: 10/11/23 Status: Ordered enoxaparin 150 mg/mL injectable solution Start: 06/24/23 9:03:00 AM EST, 1 mL, subQ, Daily, Disp# 30 mL, Refills: 11, Pharmacy: [facility]/pharmacy #[id number] Start Date: 06/24/23 Status: [...] 3, PRN: as needed for wheezing, Pharmacy: [facility]/pharmacy #[id number] Start Date: 08/26/23 Status: Ordered metOLazone 2.5 mg oral tablet Start: 11/06/23 11:22:00 AM EDT, See Instructions, Disp# 15 tab, Refills: 1, TAKE 1 TABLET Ana Garcias, Pharmacy: [facility] #[id number] Start Date: 11/06/23 Status: Ordered montelukast 10 mg oral tablet Start: 11/24/23 3:55:00 PM EDT Start Date: 11/24/23 Status: Ordered NovoLOG FlexPen 100 units/mL injectable solution Start: 12/09/23 11:19:00 AM EDT, 10 unit =, subQ, ac, Disp# 15 mL, Refills: 5, Pharmacy: [facility] #[id number] Start Date: 12/09/23 Status: Ordered ondansetron 4 mg oral tablet, disintegrating Start: 12/08/23 5:45:00 PM EDT, 1 tab, PO, q8h, Disp# 30 tab, Refills: 1, PRN: NEEDED FOR NAUSEA/VOMITING, Pharmacy: [id number] Start Date: 12/08/23 Status: Ordered Ozempic (0.25 mg or 0.5 mg dose) 2 mg/3 mL subQ pen Start: 12/09/23 11:20:00 AM EDT, See Instructions, subQ, q7days, Disp# 3 mL, Refills: 1, Inject 0.5 mg every 7 days X 4 weeks, Pharmacy: [facility] #[id number], Supply Start Date: 12/09/23 Status: Ordered Potassium Chloride (Jjy-Gtvh-Asi M20) 20 mEq oral tablet, extended release Start: 11/25/23 11:39:00 AM EDT, 2 tab, PO, qid, Disp# 240 tab, Refills: 1, [id number] Start Date: 11/25/23 Stop Date: 01/24/24 Status: Ordered QUEtiapine 200 mg oral tablet Start: 06/22/23 5:20:00 PM EST, 1 tab, PO, Daily, Disp# 90 tab, Refills: 3, [id number] Start Date: 06/22/23 Status: Ordered Trelegy Ellipta 200 mcg-62.5 mcg-25 mcg/inh inhalation powder Start: 07/08/22 11:13:00 AM EDT Start Date: 07/08/22 Status: Ordered UltiCare Pen Needle 32G x 4mm Start: 07/08/23 2:51:00 PM EDT, See Instructions, Disp# 100 pen_needle, Refills: 1, Use three times daily, Note to Pharmacy: E11.65, Pharmacy: [facility]/pharmacy #[id number] Start Date: 07/08/23 Status: Ordered Ventolin HFA 90 mcg/inh inhalation aerosol Start: 08/13/23 11:23:00 AM EDT, 2 puff, inhaled, qid, Disp# 8 g, Refills: 5, PRN: as needed for wheezing, Pharmacy: [facility]/pharmacy #[id number] Start Date: 08/13/23 Status: Ordered Mental Status 12/09/23 Barriers to Learning one year None evide nt Mandatory Health Literacy Documentation Yes Health Literacy Communication Barriers N ever Primary Language Korean Problem List Condition Confirmation Course Effective Dates [...] Effective Dates Health Status Clinical Service Informant Gout Discharge Diagnosis 12/09/23 Non-Specified Migratory pain Discharge Diagnosis 12/09/23 Non-Specified Controlled diabetes mellitus with hyperglycemia Discharge Diagnosis 12/09/23 Non-Specified COPD without exacerbation Discharge Diagnosis 12/09/23 Non-Specified Personal history of multiple myeloma Discharge Diagnosis 12/09/23 Non-Specified Procedures Procedure Date Related Diagnosis Body Site Status Bone marrow biopsy 2013 [facility] Results Laboratory List Name Date Basic Metabolic Panel (BASIC METAB PANEL ) 12/09/23 C Reactive Protein, High Sensitivity (C REAC PROT,HI SENS) 12/09/23 CCP Antibody (ANTI-CCP) 12/09/23 Complete Blood Count (CBC) 12/09/23 Erythrocyte Sedimentation Rate (SEDIMENT ATION RATE) 12/09/23 Hemoglobin A1C (HEMOGLOBIN, A1C) 12/09/23 Hepatic Function Panel (HEPATIC FUNCT PA SHANE) 12/09/23 Rheumatoid Factor (RHEUMATOID FACTOR) Thyroid Stimulating Hormone (TSH) 4 Uric Acid Level (URIC ACID) 12/09/23 Most recent to oldest [Reference Range]: 1 eGFR CKD-EPI [>60 mL/min/1.73 m2] 52 mL/ min/1.73 m2 *LOW* (12/09/23 11:45 AM) RF. [<14 I.U./mL] 12 I.U./mL (12/09/23 11:45 AM) Estimated Average Glucose 200 mg/dL (12/09/23 11:45 AM) CCP Ab [<17.0 unit/mL] <12.0 unit/mL (12/09/23 11:45 AM) Estimated CrCl 53.62 mL/min (12/09/23 8:27 PM) C Reactive Prot, high sens 0.9 mg/L 1 (12/09/23 11:45 AM) MPV [9.0-12.2 fL] 10.4 fL (12/09/23 11:45 AM) RDW [11.5-14.2 %] 17.6 % *HI* (12/09/23 11:45 AM) Anion Gap [5-14 mmol/L] 18 mmol/L *HI* (12/09/23 11:45 AM) Alb [3.5-5.2 g/dL] 4.2 g/dL (12/09/23 11:45 AM) Alk Phos [35-115 unit/L] 109 unit/L 2 (12/09/23 11:45 AM) ALT [0-33 unit/L] 23 unit/L 3 (12/09/23 11:45 AM) AST [0-32 unit/L] 17 unit/L 4 (12/09/23 11:45 AM) BUN [6-23 mg/dL] 50 mg/dL *HI* (12/09/23 11:45 AM) Ca [8.4-10.2 mg/dL] 10.3 mg/dL *HI* (12/09/23 11:45 AM) Cl- [98-107 mmol/L] 89 mmol/L *LOW* (12/09/23 11:45 AM) HCO3 [22-29 mmol/L] 32 mmol/L *HI* (12/09/23 1145 AM) Cret [0.60-1.00 mg/dL] 1.18 mg/dL *HI* (12/09/2345 AM) D Bili [0.0-0.3 mg/dL] <0.2 mg/dL 5 (12/09/2345 AM) ESR [0-30 mm/hr] 5 mm/hr (12/09/2345 AM) HbA1c [<5.7 %] 8.6 % 6 *HI* (12/09/23 11:45 AM) Glu [74-109 mg/dL] 178 mg/dL 7 *HI* (12/09/2345 AM) Hct [35-44 %] 48.9 % *HI* (12/09/23 11:45 AM) Hgb [11.7-15.0 g/dL] 15.5 g/dL *HI* (12/09/2345 AM) K [3.5-5.1 mmol/L] 3.4 mmol/L 8 *LOW* (12/09/23:45 AM) MCH [28-33 pg] 28.1 pg (12/09/23:45 AM) MCHC [32-36 g/dL] 31.7 g/dL *LOW* (12/09/23 11:45 AM) MCV [81-96 fL] 88.6 fL (12/09/2345 AM) Na [136-145 mmol/L] 139 mmol/L (12/09/2345 AM) Plts [150-350 K/uL] 342 K/uL (12/09/23:45 AM) RBC [3.90-5.00 M/uL] 5.52 M/uL *HI* (12/09/2345 AM) T Bili [0.0-1.2 mg/dL] 0.2 mg/dL (12/09/2345 AM) Prot [6.4-8.3 g/dL] 7.2 g/dL (12/09/23 11:45 AM) TSH [0.30-4.20 uIU/mL] 0.33 uIU/mL (12/09/23 11:45 AM) Uric Acid [2.7-6.4 mg/dL] 7.2 mg/dL *HI* (12/09/23 11:45 AM) WBC [4.0-10.4 K/uL] 18.85 K/uL *HI* (12/09/23 11:45 AM) 1Result Comment: Classification for Cardiovascular Disease Risk Conventional and SI Units (mg/L). LOW <1.0 AVERAGE 1.0-3.0 HIGH >3.0-10.0 INDETERMINANT >10.0 2Result Comment: Low levels of ALKP may indicate a deficiency in zinc, magnesium, or malnutritionbutcan also be an indicator of a rare genetic disease hypophosphatasia (HPP). 3Result Comment: LIPEMIC SPECIMEN 4Result Comment: LIPEMIC SPECIMEN 5Result Comment: LIPEMIC SPECIMEN 6Result Comment: ADA Recommended [place] Reference Range: Normal: <5.7% Prediabetes: 5.7-6.4% Diabetes: >6.4% 7Result Comment: ADA recommendation for FASTING Serum/Plasma Glucose: Normal: 70-100 mg/dL Prediabetes: 100-125 mg/dL Diabetes: 126 mg/dL or higher 8Result Comment: HEMOLYZED SPECIMEN Vital Signs Most recent to oldest [Reference Range]: 1 Patient Weight 96.2 kg (12/09/23 10:53 AM) Heart Rate 113 bpm (12/09/23 10:53 AM) Respiratory Rate 17 br/min (12/09/23 10:53 AM) Blood Pressure 150/66mmHg (12/09/23 10:53 AM) Cuff Pulse Pressure 84 mmHg (12/09/23 10:53 AM) Social History Social History Type Response Smoking Status Current every day li ght smoker Sex Female Sex Representation Female (finding) Patient Care team information Care Team Personnel Name: ELENA Barboza Kimberly A Position: Physician Asst Exmpt - Family Med Member Role: Primary Care Provider Address: [address] [facility] [address] [place] [address] [place] Name: MARGARET Dunn Jo Ann M Position: Nurse Pract - Hem/Onc Member Role: Lifetime Relationship Address: [address] [place] [id number] [place] Care Team Related Persons Name: MO SAMUEL
--- OUTSIDE RECORDS SUMMARY | 2023-12-13 15:05 | External Medical Summary | Continuity of Care Document ---
Author Name Unknown Organization [address] [place] [address] [phone] Care Team Providers Care Salvager Helper Name Role Phone Radha Barboza Primary Care Physician [phone] [facility] [id number] Date(s): 11/25/23 - 11/25/23 [facility] 0 [facility] 207 [facility] [address] [facility] [address] [place] [address] [phone] Encounter Diagnosis Hypokalemia(Discharge Diagnosis) - 11/25/23 Elevated uric acid in blood(Discharge Diagnosis) - 11/25/23 Hypokalemia(Final) - Hyperuricemia without signs of inflammatory arthritis and tophaceous disease (Final) - Discharge Disposition: Home or Self Care [...] information-source unspecified Medications Accu-Chek FastClix Lancets Start: 3/5/24 2:06:00 PM EST, See Instructions, Disp# 102 lancet, Refills: 0, 32G x , Pharmacy:[facility]/pharmacy #[id number] Start Date: 06/30/23 Status: Ordered allopurinol 300 mg oral tablet Start: 11/25/23 11:37:00 AM EDT, 1 tab, PO, Daily, Disp# 30 tab, Refills: 5, Pharmacy: [facility]/pharmacy #[id number] Start Date: 11/25/23 Stop Date: 05/23/24 Status: Ordered ALPRAZolam 0.5 mg oral tablet Start: 08/26/23 4:22:00 PM EDT, 1 tab, PO, bid, Disp# 90 tab, Refills: 5, Make take an extra tablet for acute panic attacks. Max 3/day, PRN: as needed for anxiety, [id number], Earliest Fill Date: 09/11/23 Start Date: 08/26/23 Status: Ordered bumetanide 2 mg oral tablet Start: 03/09/23 10:51:00 PM EST, See Instructions, Disp# 360 tab, Refills: 3, TAKE 2 TABLETS BY MOUTH IN THE MORNING AND 2 TABLET AT LUNCHTIME, Pharmacy: [facility]/pharmacy #[id number] Start Date: 03/09/23 Status: Ordered CeleXA Start: 11/03/23 11:27:00 AM EDT Start Date: 11/03/23 Status: Ordered colchicine 0.6 mg oral tablet TAKE 2 TABLETS BY MOUTH ONCE, THEN TAKE 1 TABLET TWICE A DAY FOR 3 DAYS NEEDED FOR GOUT ATTACKS Start Date: 11/03/23 Status: Ordered Dexcom G6 Front Office Associate Kit Start: 10/11/23 8:34:00 PM EDT, See Instructions, Disp# 1 kit, Test three times daily, Note to Pharmacy: Dx E11.65, Pharmacy: [facility]/pharmacy #[id number] Start Date: 10/11/23 Status: Ordered Dexcom G6 Sensor Kit Start: 11/25/23 11:27:00 AM EDT, See Instructions, Disp# 3 kit, Refills: 5, Test three times daily, Note to Pharmacy: Dx E11.65, Pharmacy: [facility]/pharmacy #[id number] Start Date: 11/25/23 Status: Ordered Dexcom G6 Transmitter Kit Start: 10/11/23 8:36:00 PM EDT, See Instructions, Disp# 1 kit, Test three times daily, Pharmacy: [facility]/pharmacy #[id number] Start Date: 10/11/23 Status: Ordered enoxaparin 150 mg/mL injectable solution Start: 06/24/23 9:03:00 AM EST, 1 mL, subQ, Daily, Disp# 30 mL, Refills: 11, Pharmacy: [facility]/pharmacy #[id number] Start Date: 06/24/23 Status: Ordered fluticasone [...] 3, PRN: as needed for wheezing, [id number] Start Date: 08/26/23 Status: Ordered metOLazone 2.5 mg oral tablet Start: 11/06/23 11:22:00 AM EDT, See Instructions, Disp# 15 tab, Refills: 1, TAKE 1 TABLET Ana Garcias, [id number] Start Date: 11/06/23 Status: Ordered montelukast 10 mg oral tablet Start: 11/24/23 3:55:00 PM EDT Start Date: 11/24/23 Status: Ordered NovoLOG FlexPen 100 units/mL injectable solution Start: 02/17/23 3:10:00 PM EDT, 10 unit =, subQ, ac, Disp# 15 mL, Refills: 5, Pharmacy: [facility]/pharmacy #[id number] Start Date: 02/17/23 Status: Ordered ondansetron 4 mg oral tablet, disintegrating Start: 08/26/23 4:23:00 PM EDT, 1 tab, PO, q8h, Disp# 30 tab, Refills: 1, PRN: as needed for nausea/vomiting, Pharmacy: [facility]/pharmacy #[id number] Start Date: 08/26/23 Status: Ordered Ozempic (0.25 mg or 0.5 mg dose) 2 mg/3 mL subQ pen Start: 11/02/23 8:51:00 AM EDT, See Instructions, Disp# 3 unknown unit, Refills: 1, INJECT 0.25MG SUBCUTANEOUSLY EVERY 7 DAYS X4 WEEKS,THEN INCREASE TO 0.5MG EVERY 7 DAYS, Pharmacy: [facility] STORE [id number] Start Date: 11/02/23 Status: Ordered Potassium Chloride (Svx-Qnig-Ine M20) 20 mEq oral tablet, extended release Start: 11/25/23 11:39:00 AM EDT, 2 tab, PO, qid, Disp# 240 tab, Refills: 1, [id number] Start Date: 11/25/23 Stop Date: 01/24/24 Status: Ordered QUEtiapine 200 mg oral tablet Start: 06/22/23 5:20:00 PM EST, 1 tab, PO, Daily, Disp# 90 tab, Refills: 3, [id number] Start Date: 06/22/23 Status: Ordered Suboxone 8 mg-2 mg sublingual film Start: 10/06/23 2:42:00 PM EDT, See Instructions, Disp# 36 patch, Refills: 0, Start at half a film (4mg-1mg) SL BID. Decrease total dose by 2 mg-0.5mg every 2 weeks until dose is tapered to zero and discontinue thereafter. dissolve under the tongue, [id number] Start Date: 10/06/23 Status: Ordered Trelegy Ellipta 200 mcg-62.5 mcg-25 mcg/inh inhalation powder Start: 07/08/22 11:13:00 AM EDT Start Date: 07/08/22 Status: Ordered UltiCare Pen Needle 32G x 4mm Start: 07/08/23 2:51:00 PM EDT, See Instructions, Disp# 100 pen_needle, Refills: 1, Use three times daily, Note to Pharmacy: E11.65, Pharmacy: [facility]/pharmacy #[id number] Start Date: 07/08/23 Status: Ordered Ventolin HFA 90 mcg/inh inhalation aerosol Start: 08/13/23 11:23:00 AM EDT, 2 puff, inhaled, qid, Disp# 8 g, Refills: 5, PRN: as needed for wheezing, Pharmacy: [facility]/pharmacy #[id number] Start Date: 08/13/23 Status: Ordered Mental Status 11/25/23 Barriers to Learning one year None evide [...] Status Clinical Service Informant Hypokalemia Discharge Diagnosis 11/25/23 Non-Specified Elevated uric acid in blood Discharge Diagnosis 11/25/23 Non-Specified Procedures Procedure Date Related Diagnosis Body Site Status Bone marrow biopsy 2013 [facility] ganesh Results Laboratory List Name Date Comprehensive Metabolic Panel (COMP META B PANEL) 11/25/23 Most recent to oldest [Reference Range]: 1 eGFR CKD-EPI [>60 mL/min/1.73 m2] 68 mL/ min/1.73 m2 (11/25/23 11:51 AM) Estimated CrCl 67.67 mL/min (11/25/23 8:11 PM) Anion Gap [5-14 mmol/L] 16 mmol/L *HI* (11/25/23 11:51 AM) Alb [3.5-5.2 g/dL] 4.3 g/dL (11/25/23 11:51 AM) Alk Phos [35-115 unit/L] 112 unit/L 1 (11/25/23 11:51 AM) ALT [0-33 unit/L] 35 unit/L *HI* (11/25/23 11:51 AM) AST [0-32 unit/L] 22 unit/L (11/25/23 11:51 AM) BUN [6-23 mg/dL] 26 mg/dL *HI* (11/25/23 11:51 AM) Ca [8.4-10.2 mg/dL] 9.8 mg/dL (11/25/23 11:51 AM) Cl- [98-107 mmol/L] 92 mmol/L *LOW* (11/25/23 11:51 AM) HCO3 [22-29 mmol/L] 29 mmol/L (11/25/23 11:51 AM) Cret [0.60-1.00 mg/dL] 0.94 mg/dL (11/25/23 11:51 AM) Glu [74-109 mg/dL] 242 mg/dL 2 *HI* (11/25/23 11:51 AM) K [3.5-5.1 mmol/L] 4.3 mmol/L 3 (11/25/23 11:51 AM) Na [136-145 mmol/L] 137 mmol/L (11/25/23 11:51 AM) T Bili [0.0-1.2 mg/dL] 0.2 mg/dL (11/25/23 11:51 AM) Prot [6.4-8.3 g/dL] 7.5 g/dL (11/25/23 11:51 AM) 1Result Comment: Low levels of ALKP may indicate a deficiency in zinc, magnesium, or malnutritionbutcan also be an indicator of a rare genetic disease hypophosphatasia (HPP). 2Result Comment: ADA recommendation for FASTING Serum/Plasma Glucose: Normal: 70-100 mg/dL Prediabetes: 100-125 mg/dL Diabetes: 126 mg/dL or higher 3Result Comment: HEMOLYZED SPECIMEN Vital Signs Most recent to oldest [Reference Range]: 1 Heart Rate 74 bpm (11/25/23 11:05 AM) Respiratory Rate 20 br/min (11/25/23 11:05 AM) Social History Social History Type Response Smoking Status Current every day li ght smoker Sex Female Sex Representation Female (finding) Patient Care team information Care Team Personnel Name: ELENA Barboza Kimberly A Position: Physician Asst Exmpt - Family Med Member Role: Primary Care Provider Address: [address] [address] [place] Name: MARGARET Dunn Jo Ann M Position: Nurse Pract - Hem/Onc Member Role: Lifetime Relationship Address: [address] [place] [id number] [place] Care Team Related Persons Name: MO SAMUEL
--- NOTE | 2023-12-13 16:21 | Emergency Department Note ---
History of Present Illness General Chief Complaint: Shortness of Breath/Dyspnea Stated Complaint: DIFFICULTY BREATHING, SWELLING Time Seen by Provider: 12/13/23 16:06 History of Present Illness Provider Complaint: shortness of breath Onset (ago): day(s) (2) Severity: severe Consistency/Duration: + progressively worsening Relieved By: + nothing Exacerbated By: + lying flat, + exertion and + coughing Known history of: COPD and congestive heart failure Associated symptoms: + cough, + wheezing, + sputum production, + orthopnea and + chest congestion; no chest pain, no fever or no hemoptysis Home Medications Medication Instructions Recorded Confirmed Type buprenorphine 8 mg-naloxone 2 mg 0.5 film sublingual BID 05/14/22 12/13/23 History sublingual film nystatin 100,000 unit/gram topical 1 applic topical BID PRN UNDER 05/14/22 12/13/23 History powder BREASTS NEEDED. ondansetron HCl 4 mg tablet 4 mg PO Q8H PRN NAUSEA/VOMITING 05/14/22 12/13/23 History quetiapine 200 mg tablet 200 mg PO HS 05/14/22 12/13/23 History levalbuterol HCl 1.25 mg/3 mL 1.25 mg inhalation TID PRN 01/16/23 12/13/23 History solution for nebulization Shortness Of Breath Or Wheezing enoxaparin 150 mg/mL subcutaneous 150 mg subcut UD 05/07/23 12/13/23 History syringe alprazolam 0.5 mg tablet 0.5 mg PO TID #14 tabs 08/02/23 12/13/23 Rx albuterol sulfate 90 mcg/actuation 2 puff inhalation UD PRN Shortness 08/30/23 12/13/23 History aerosol inhaler Of Breath Or Wheezing guaifenesin 600 mg tablet, 600 mg PO Q12 Congestion 09/11/23 12/13/23 History extended release 12 hr (Mucinex) fluticasone propionate 50 1 spray intranasal BID nasal 09/15/23 12/13/23 Rx mcg/actuation nasal congestion #0 mL spray,suspension (Flonase Allergy Relief) fluticasone fur. 200 mcg-umeclid 1 ea inhalation QAM #60 ea 09/16/23 12/13/23 Rx 62.5 mcg-vilant 25 mcg inhalat.powder (Trelegy Ellipta) levalbuterol tartrate 45 2 puff inhalation Q4 PRN WHEEZE 09/16/23 12/13/23 Rx mcg/actuation aerosol inhaler #15 grams bumetanide 2 mg tablet 2 mg PO BID #60 tabs 09/29/23 12/13/23 Rx insulin glargine 100 unit/mL (3 68 unit (0.68 mL) subcut QAM #15 mL 10/17/23 12/13/23 Rx mL) subcutaneous pen ipratropium bromide 0.02 % 3 ml continuous nebulization QID 10/17/23 12/13/23 Rx solution for inhalation PRN shortness of breath #75 mL calcium polycarbophil 625 mg 625 mg PO QAM #30 tabs 10/30/23 12/13/23 Rx tablet (Fiber (calcium polycarbophil)) colchicine 0.6 mg tablet (Colcrys) 0.6 mg PO BID PRN gout attacks #60 10/30/23 12/13/23 Rx tabs ibuprofen 200 mg tablet 600 mg (3 x 200 mg) PO TID PRN 10/30/23 12/13/23 Rx pain #30 tabs Ozempic Inj 0.25 mg INJ WK 11/07/23 12/13/23 History insulin aspart U-100 100 unit/mL 0 unit subcut TIDM 11/07/23 12/13/23 History (3 mL) subcutaneous pen (Novolog FlexPen U-100 Insulin aspart) metolazone 2.5 mg tablet 2.5 mg PO MoWeFr@0900 #30 tabs 11/23/23 12/13/23 Rx potassium chloride 20 mEq 40 meq (2 x 20 mEq) PO QID #30 tabs 11/23/23 12/13/23 Rx tablet,extended release(part/cryst) allopurinol 100 mg tablet 300 mg PO QAM 12/13/23 12/13/23 History citalopram 10 mg tablet 10 mg PO DAILY 12/13/23 12/13/23 History Allergies Allergy/AdvReac Type Severity Reaction Status Date / Time codeine Allergy Severe Anaphylaxis Verified 11/14/23 01:37 Iodinated Contrast Media Allergy Severe Anaphylaxis Verified 11/14/23 01:37 shellfish derived Allergy Severe Anaphylaxis Verified 11/14/23 01:37 tramadol Allergy Intermediate ITCHINESS Verified 11/14/23 01:37 iohexol Allergy Unknown CAN'T Verified 11/14/23 01:37 REMEMBER diphenhydramine AdvReac Severe Anxiety Verified 11/14/23 01:37 [From Benadryl] promethazine AdvReac Intermediate Anxiety Verified 11/14/23 01:37 Past Med/Surg History Problem List CHF exacerbation (Acute) COPD exacerbation (Acute) Chest pain Right knee pain DM II (diabetes mellitus, type II), controlled Elevated troponin (Acute) Acute and chronic respiratory failure with hypoxia (Acute) Acute exacerbation of chronic obstructive pulmonary disease (Acute) Gout Leukocytosis (Acute) Chronic hypoxic respiratory failure Acute hypokalemia (Acute) Shortness of breath (Acute) Multiple myeloma Last chemotherapy 2016 Follows with medical oncology in [facility] Diabetes Hypokalemia Heart failure with preserved ejection fraction COPD (chronic obstructive pulmonary disease) (Acute) Shortness of breath (Acute) Generalized anxiety disorder Chronic respiratory failure with hypoxia and hypercapnia Tobacco abuse counseling Chronic hypercapnic respiratory failure Moderate persistent asthma Constipation History of pulmonary embolism Obesity hypoventilation syndrome Chronic anticoagulation Acute bronchitis Pulmonary vascular congestion Right knee pain Nasal fracture Rib fractures (Acute) COPD (chronic obstructive pulmonary disease) (Acute) Medical History Acute exacerbation of chronic obstructive pulmonary disease Acute heart failure with preserved ejection fraction (HFpEF) Acute exacerbation of chronic obstructive pulmonary disease Tobacco abuse Opiate dependence Dyspnea Asthma Surgical History No pertinent past surgical history Family History Sister Asthma Social History Smoking Status: Current every day smoker Tobacco Type: Cigarettes Cigarettes Per Day: 1 cigarette per day; Second Hand Exposure: No; Do You Dip or Chew Tobacco: No; Hx Alcohol Use: No Hx Substance Use: No Preferred Language: New Zealander Communication Ability: Effective Barista Required: No Beliefs That Will Affect Care: None Current Living Situation: Family Current Living Situation Comment: lives with sister temporarily Feels Safe at Home: Yes Assistive Devices: None Physical Exam 2 Vital Signs: Vital Signs - 24 hr 12/13/23 15:04 12/13/23 15:55 12/13/23 18:02 Temperature 35.9 C L 36.7 C Temperature Source Temporal Artery Sc an Oral Pulse Rate 104 H Pulse Rate [Apical ] 99 H 101 H Pulse Rhythm [Apic al] Regular Pulse Strength [Ap ical] Normal Normal Respiratory Rate 19 18 20 Respiratory Effort / Characteristics Non-Labored Sponta neous Non-Labored Sponta neous Respiratory Depth Normal Normal Blood Pressure 144/85 H Blood Pressure [Ri ght Arm] 141/96 H 144/104 H Blood Pressure Viktoria n 104 Blood Pressure Viktoria n [Right Arm] 111 117 Pulse Oximetry 96 94 93 Oxygen Delivery Me thod Room Air Room Air Room Air Sepsis Recent Feve r Within 48 Hours No Sepsis New/Unexpla ined Change in Men robyn Status N/A Sepsis Action Take n by Nursing No Action Required Physical Exam: Physical Exam GENERAL: oriented to person, place, and time. appears well-developed and well- nourished. HENT: Exam performed. - Head: Normocephalic and atraumatic. EYES: Conjunctivae and EOM are normal. Right eye exhibits no discharge. Left eye exhibits no discharge. No scleral icterus. NECK: Normal range of motion. Neck supple. No JVD present. CV: Normal rate, regular rhythm, normal heart sounds and intact distal pulses. There is no peripheral edema. Palpable radial pulses bue. PULM/CHEST: Diminished breath sounds bilaterally. Prolonged expiratory wheezing bilaterally. ABD: The abdomen is soft. There is no tenderness. NEURO: Motor and sensation grossly intact. SKIN: Skin is warm and dry. He is not diaphoretic. PSYCH: normal mood and affect. Behavior is normal. Judgment and thought content normal. Course Course 1606: The patient was evaluated in room C10. A complete history and physical exam was performed Cardiac monitoring: An order was placed for continuous cardiac monitoring. The monitor shows a rate of 100 with sinus rhythm interpreted by me 1759: Vital signs stable. Labs showed leukocytosis of 16.94. Hemoglobin 14.3. VBG shows venous pH of 7.48 venous pCO2 of 54. High-sensitivity troponin of 66, patient does have chronically elevated elevated high-sensitivity troponins however this does appear higher than normal. Patient's proBNP is elevated at 197. Chest x-ray viewed by me shows cardiomegaly with mild cephalization however formal radiology read shows no acute process. Patient states she still feels very short of breath. Her wheezing is improved status post 2 DuoNeb treatments. Patient treated with steroids as well as Lasix as patient was noted to have a commendation of COPD and CHF exacerbation. [facility]. Administered Medications Alprazolam (Alprazolam 0.5 Mg Tablet) 0.5 mg PO TID FLETCHER Stop: 01/12/24 20:59 Last Admin: 12/13/23 21:38 Dose: 0.5 mg Documented By: SRW Bumetanide (Bumetanide 1 Mg Tab) 2 mg PO BID FLETCHER Stop: 01/12/24 20:59 Last Admin: 12/13/23 21:34 Dose: 2 mg Documented By: SRW Buprenorphine/Naloxone (Buprenorphine/Naloxone 8/2 Mg Tab) 0.5 tab SL BID FLETCHER Stop: 01/12/24 20:59 Last Admin: 12/13/23 21:33 Dose: 0.5 tab Documented By: SRW Enoxaparin Sodium (Enoxaparin 100 Mg/1ml Syr) 100 mg SQ Q12H FLETCHER Stop: 01/12/24 20:59 Last Admin: 12/13/23 21:42 Dose: Not Given Documented By: W Ceftriaxone Sodium (Rocephin) 2,000 mg in 50 mls @ 100 mls/hr IV Q24H FLETCHER Stop: 12/20/23 20:29 Last Infusion: 12/13/23 22:11 Dose: Infused Documented By: Admin: 12/13/23 21:33 Dose: 100 mls/hr Documented By: SRW Insulin Aspart (Insulin Aspart Per Unit Charge) 0 units SC ACHS FLETCHER Stop: 01/12/24 20:59 Last Admin: 12/13/23 21:22 Dose: Not Given Documented By: SRW Insulin Glargine (Lantus Per Unit Charge) 40 units SC BID FLETCHER Stop: 01/12/24 20:59 Last Admin: 12/13/23 21:34 Dose: 40 units Documented By: SRW Co-signed By: STEPHEN Quetiapine Fumarate (Quetiapine Fumarate 200 Mg Tab) 200 mg PO HS FLETCHER Stop: 01/12/24 20:59 Last Admin: 12/13/23 21:34 Dose: 200 mg Documented By: SRW Discontinued Medications Albuterol (Albut/Ipratrop 3mg/0.5mg Neb 3 Ml Vial) 3 ml NEB NOW STA; Protocol Stop: 12/13/23 16:11 Last Admin: 12/13/23 16:30 Dose: 3 ml Documented By: MMF Albuterol (Albut/Ipratrop 3mg/0.5mg Neb 3 Ml Vial) 3 ml NEB NOW STA; Protocol Stop: 12/13/23 16:50 Last Admin: 12/13/23 17:15 Dose: 3 ml Documented By: GGG Azithromycin (Azithromycin 250 Mg Tab) 500 mg PO NOW ONE Stop: 12/13/23 20:10 Last Admin: 12/13/23 21:34 Dose: 500 mg Documented By: W Furosemide (Furosemide 40 Mg/4 Ml Vial) 40 mg IV ONE ONE Stop: 12/13/23 17:51 Last Admin: 12/13/23 17:59 Dose: 40 mg Documented By: GEO Methylprednisolone 125 mg/ (Syringe) 2 mls @ 0.667 mls/min IV NOW ONE Stop: 12/13/23 17:52 Last Admin: 12/13/23 18:46 Dose: 0.667 mls/min Documented By: GGG Magnesium Sulfate/Dextrose (Magnesium Sulfate / D5w) 1 gm in 100 mls @ 50 mls/hr IV ONE ONE Stop: 12/13/23 20:50 Last Admin: 12/13/23 21:05 Dose: Not Given Documented By: ALLEY Medical Decision Making Laboratory Data Attestation: I reviewed the patient's lab results. 12/13/23 16:21 12/13/23 16:21 Lab Results 12/13/23 12/13/23 Range/Units 16:21 17:52 WBC 16.94 H (4.8-10.8) K/ul RBC 5.25 (4.20-5.40) M/uL Hgb 14.3 (12.0-16.0) g/dl Hct 45.0 (37.0-47.0) % MCV 85.7 (80.0-100.0) fL MCH 27.2 (25.0-34.0) pg MCHC 31.8 L (32.0-36.0) g/dL RDW Std Deviation 51.5 H (36.4-46.3) fL RDW Coeff of Malick 17.1 H (11.5-14.5) % Plt Count 249 (130-400) K/uL MPV 10.0 (9.4-12.4) fL Immature Gran % (Auto) 1.8 % Neut % (Auto) 79.1 % Lymph % (Auto) 15.0 % [place] % (Auto) 3.7 % Eos % (Auto) 0.2 % Baso % (Auto) 0.2 % Neut # (Auto) 13.42 H (1.40-6.50) K/uL Lymph # (Auto) 2.54 (1.20-3.40) K/uL [place] # (Auto) 0.62 H (0.11-0.59) K/uL Eos # (Auto) 0.03 (0.00-0.50) K/uL Baso # (Auto) 0.03 (0.00-0.20) K/uL Immature Gran # (Auto) 0.30 H (0.01-0.20) K/uL PT Cancelled 10.5 INR Cancelled 1.0 APTT Cancelled 21 PTT Ratio Cancelled 0.8 VBG pH 7.48 H (7.36-7.41) VBG pCO2 54 H (38-50) mmHg VBG pO2 44 mmHg VBG HCO3 40 mmol/L VBG O2 Saturation 79.2 % VBG Base Excess 14.2 mEq/L Sodium 137 (136-145) mmol/L Potassium 3.5 (3.5-5.1) mmol/L Chloride 90 L (98-107) mmol/L Carbon Dioxide 37 H (21-32) mmol/L Anion Gap 10 (3-11) BUN 51 H (6-23) mg/dl Creatinine 0.96 (0.6-1.2) mg/dl Est Cr Clr Drug Dosing 65.1 ml/min Est GFR ( Amer) 73.5 ml/min Est GFR (Non-Af Amer) 63.4 ml/min BUN/Creatinine Ratio 53.1 H (10-20) Glucose 73 (70-99(Fasting)) mg/dl Calcium 9.2 (8.6-10.3) mg/dl Magnesium 2.2 (1.7-2.4) mg/dl Troponin I High Sens 66.0 H* 63.1 H* (0-14) pg/ml B-Natriuretic Peptide 197 H (0-100) pg/ml Imaging Data Attestation: I personally reviewed and interpreted this imaging study as follows: My Impression: Chest x-ray: Mild cardiomegaly with mild cephalization. Radiologist's Impression: Chest X-Ray 12/13/23 15:07 XR chest 1V not portable HISTORY: Chest pain, nonspecific COMPARISON: Chest 11/15/2023. FINDINGS: No pneumothorax. No pleural effusions. The heart is normal in size. There are low lung volumes. A few bibasilar linear densities favor subsegmental atelectasis or scarring. No new focal lung consolidations to suggest a pneumonia. No evidence for pulmonary edema. Old, healed bilateral rib fractures are again noted. Stable expansile right anterior fourth rib lesion. IMPRESSION: No acute process. ACT 112: Negative or not required by law. Electronically signed by: Chester Salas M.D. 12/13/2023 4:20 PM ECG Data Attestation: I personally reviewed and interpreted this ECG as follows: Interpretation: Sinus rhythm with a rate of 100. VA 136 QRS [address] elevation or ST depression. [facility] Narrative 1606: The patient was evaluated in room C10. A complete history and physical exam was performed Cardiac monitoring: An order was placed for continuous cardiac monitoring. The monitor shows a rate of 100 with sinus rhythm interpreted by or 1759: Vital signs stable. Labs showed leukocytosis of 16.94. Hemoglobin 14.3. VBG shows venous pH of 7.48 venous pCO2 of 54. High-sensitivity troponin of 66, patient does have chronically elevated elevated high-sensitivity troponins however this does appear higher than normal. Patient's proBNP is elevated at 197. Chest x-ray viewed by me shows cardiomegaly with mild cephalization however formal radiology read shows no acute process. Patient states she still feels very short of breath. Her wheezing is improved status post 2 DuoNeb treatments. Patient treated with steroids as well as Lasix as patient was noted to have a commendation of COPD and CHF exacerbation. [facility] Impression & Plan COPD exacerbation, CHF exacerbation Discharge Plan Visit Data Chief Complaint: Shortness of Breath/Dyspnea Stated Complaint: DIFFICULTY BREATHING, SWELLING ED Provider: Bhupinder Allen Discharge Problem: COPD exacerbation, CHF exacerbation Patient Disposition: Being Evaluated by Hospitalist Discharge Instructions Interventions: ED Discharge Assessment Last Done: 12/13/23 19:48
--- NOTE | 2023-12-13 16:22 | XRay Report ---
XR chest 1V not portable HISTORY: Chest pain, nonspecific COMPARISON: Chest 11/15/2023. FINDINGS: No pneumothorax. No pleural effusions. The heart is normal in size. There are low lung volu mes. A few bibasilar linear densities favor subsegmental atelectasis or scarring. No new focal lung c onsolidations to suggest a pneumonia. No evidence for pulmonary edema. Old, healed bilateral rib frac tures are again noted. Stable expansile right anterior fourth rib lesion. IMPRESSION: No acute process. ACT 112: Negative or not required by law. Electronically signed by: Chester Salas M.D. 12/13/2023 4:20 PM
[2023-12-13 16:29] LABS: Base Excess VBG 14.2 mEq/L; HCO3 VBG 40 mmol/L; Oxygen Saturation VBG 79.2 %; PCO2 VBG 54 mmHg (38-50); PO2 VBG 44 mmHg; pH VBG 7.48 (7.36-7.41)
[2023-12-13] MEDS: ALBUT/IPRATROP 3MG/0.5MG NEB 3 ML VIAL NEB STA ×2 (16:30→17:15)
[2023-12-13 16:35] LABS: Basophils # (auto) 0.03 K/uL (0.00-0.20); Basophils % (auto) 0.2 %; Eosinophils # (auto) 0.03 K/uL (0.00-0.50); Eosinophils % (auto) 0.2 %; Hemoglobin 14.3 g/dl (12.0-16.0); Immature Granulocytes % (auto) 1.8 %; Lymphocytes # (auto) 2.54 K/uL (1.20-3.40); Mean Corpuscular Hemoglobin 27.2 pg (25.0-34.0); Mean Corpuscular Hgb Conc 31.8 g/dL (32.0-36.0); Mean Corpuscular Volume 85.7 fL (80.0-100.0); Monocytes # (auto) 0.62 K/uL (0.11-0.59); Monocytes % (auto) 3.7 %; Neutrophils # (auto) 13.42 K/uL (1.40-6.50); Neutrophils % (auto) 79.1 %; Platelet Count 249 K/uL (130-400); RDW Coefficient of Variation 17.1 % (11.5-14.5); RDW Standard Deviation 51.5 fL (36.4-46.3); Red Blood Count 5.25 M/uL (4.20-5.40); White Blood Count 16.94 K/ul (4.8-10.8)
[2023-12-13 16:51] LABS: BUN Creatinine Ratio 53.1 (10-20); Calcium 9.2 mg/dl (8.6-10.3); Creatinine Clr Calc Pharmacy 65.1 ml/min; Est GFR (African American) 73.5 ml/min; Est GFR (Non-African American) 63.4 ml/min; Potassium 3.5 mmol/L (3.5-5.1)
[2023-12-13] MEDS: FUROSEMIDE 40 MG/4 ML VIAL IV ONE (17:59)
--- NOTE | 2023-12-13 18:27 | History & Physical Report ---
Date of Service December 13, 2023 Assessment & Plan (1) COPD exacerbation: Plan: Acute on chronic COPD exacerbation With wheezing, dyspnea, increased sputum production CXR without acute finding. Slightly congested appearing, received Lasix x 1 in the ER. Does have a leukocytosis with neutrophilic predominance and left shift. Given this and poor clinical appearance will extend coverage to Rocephin/azithromycin for acute COPD exacerbation and obtain a procalcitonin Continue home inhaler/equivalent DuoNebs as needed (2) Heart failure with preserved ejection fraction: Plan: HFpEF, mild acute on chronic exacerbation Mildly congested x-ray without overt pulmonary edema, BNP minimally elevated Received Lasix in the ER, will defer additional to clinical reassessment No chest pain Continue home diuretics No MONICA and admission (3) DM II (diabetes mellitus, type II), controlled: Plan: Type II DM History of hypoglycemic reactions with steroids. Also sometimes gets sweets from any machines during prior admissions Basal bolus insulin while admitted Pharmacy glycemic consult due to history of labile requirements, and steroid use Plan History of DVT/PE Patient is on 1.5 mpk Lovenox at home, did not take this today. Will temporarily switch to 1 melinda per kilogram of Lovenox twice daily while inpatient, and give dose at time of admission Chronic stable issues AYAN: Continue Celexa/Seroquel/Xanax Gout: Continue allopurinol Multiple myeloma: S/p transplant 2014. Needs outpatient oncology follow-up, no acute inpatient change in management Obesity hypoventilation: PPV nightly. Use Trelegy at home DVT prophylaxis: Lovenox as noted Diet: Heart healthy, DM 2 Disposition: Medical telemetry CODE STATUS: Full code History of Present Illness Primary Care Provider: Radha Jabari Cardoso is a 63-year-old female with frequent admissions for COPD exacerbations who presents with dyspnea, shortness of breath, fatigue, and worsened exertional fatigue. Typically has been able to be treated with steroids and Lasix if indicated for HFpEF be discharged home however she feels much worse than normal and enough her treatments limited ambulation at times are limited by shortness of breath. Janae since bedside. She reports in the last several days with specially last 2 days she has had much worse shortness of breath with exertion than normal. She feels that she has more fluid in her belly. She does not think she has had much swelling in her leg, had a purpleish bruise on her left leg otherwise no extremity changes. No extremity pain. She has no nausea/vomiting/diarrhea/constipation. She has had a cough which is minimally productive and increased wheezing. She feels generally worse than she has in the past, denies any chest pain chest pressure syncope or presyncope Medical History: Reviewed Medications: Reviewed Surgical History: Reviewed Family history: Reviewed Allergies: Reviewed Social History: Reviewed Code Status: Full Allergies Allergy/AdvReac Type Severity Reaction Status Date / Time codeine Allergy Severe Anaphylaxis Verified 11/14/23 01:37 Iodinated Contrast Media Allergy Severe Anaphylaxis Verified 11/14/23 01:37 shellfish derived Allergy Severe Anaphylaxis Verified 11/14/23 01:37 tramadol Allergy Intermediate ITCHINESS Verified 11/14/23 01:37 iohexol Allergy Unknown CAN'T Verified 11/14/23 01:37 REMEMBER diphenhydramine AdvReac Severe Anxiety Verified 11/14/23 01:37 [From Benadryl] promethazine AdvReac Intermediate Anxiety Verified 11/14/23 01:37 Home Medications Medication Instructions Recorded Confirmed Type buprenorphine 8 mg-naloxone 2 mg 0.5 film sublingual BID 05/14/22 11/14/23 History sublingual film nystatin 100,000 unit/gram topical 1 applic topical BID PRN UNDER 05/14/22 11/14/23 History powder BREASTS NEEDED. ondansetron HCl 4 mg tablet 4 mg PO Q8H PRN NAUSEA/VOMITING 05/14/22 11/14/23 History quetiapine 200 mg tablet 200 mg PO HS 05/14/22 11/14/23 History levalbuterol HCl 1.25 mg/3 mL 1.25 mg inhalation TID PRN 01/16/23 11/14/23 History solution for nebulization Shortness Of Breath Or Wheezing enoxaparin 150 mg/mL subcutaneous 150 mg subcut UD 05/07/23 11/14/23 History syringe alprazolam 0.5 mg tablet 0.5 mg PO TID #14 tabs 08/02/23 11/14/23 Rx albuterol sulfate 90 mcg/actuation 2 puff inhalation UD PRN Shortness 08/30/23 11/14/23 History aerosol inhaler Of Breath Or Wheezing guaifenesin 600 mg tablet, 600 mg PO Q12 Congestion 09/11/23 11/14/23 History extended release 12 hr (Mucinex) fluticasone propionate 50 1 spray intranasal BID nasal 09/15/23 11/14/23 Rx mcg/actuation nasal congestion #0 mL spray,suspension (Flonase Allergy Relief) fluticasone fur. 200 mcg-umeclid 1 ea inhalation QAM #60 ea 09/16/23 11/14/23 Rx 62.5 mcg-vilant 25 mcg inhalat.powder (Trelegy Ellipta) levalbuterol tartrate 45 2 puff inhalation Q4 PRN WHEEZE 09/16/23 11/14/23 Rx mcg/actuation aerosol inhaler #15 grams bumetanide 2 mg tablet 2 mg PO BID #60 tabs 09/29/23 11/14/23 Rx insulin glargine 100 unit/mL (3 68 unit (0.68 mL) subcut QAM #15 mL 10/17/23 11/14/23 Rx mL) subcutaneous pen ipratropium bromide 0.02 % 3 ml continuous nebulization QID 10/17/23 11/14/23 Rx solution for inhalation PRN shortness of breath #75 mL calcium polycarbophil 625 mg 625 mg PO QAM #30 tabs 10/30/23 11/14/23 Rx tablet (Fiber (calcium polycarbophil)) colchicine 0.6 mg tablet (Colcrys) 0.6 mg PO BID PRN gout attacks #60 10/30/23 11/14/23 Rx tabs ibuprofen 200 mg tablet 600 mg (3 x 200 mg) PO TID PRN 10/30/23 11/14/23 Rx pain #30 tabs Ozempic Inj 0 mg INJ DIRECTED 11/07/23 11/14/23 History insulin aspart U-100 100 unit/mL 0 unit subcut TIDM 11/07/23 11/14/23 History (3 mL) subcutaneous pen (Novolog FlexPen U-100 Insulin aspart) prednisone 10 mg tablet 0 mg PO .TAPER DIRECTED 11/07/23 11/14/23 History metolazone 2.5 mg tablet 2.5 mg PO MoWeFr@0900 #30 tabs 11/23/23 Rx potassium chloride 20 mEq 40 meq (2 x 20 mEq) PO QID #30 tabs 11/23/23 Rx tablet,extended release(part/cryst) allopurinol 100 mg tablet 300 mg PO QAM 12/13/23 History citalopram 10 mg tablet 10 mg PO DAILY 12/13/23 History Past Med/Surg History Problem List CHF exacerbation (Acute) COPD exacerbation (Acute) Chest pain Right knee pain DM II (diabetes mellitus, type II), controlled Elevated troponin (Acute) Acute and chronic respiratory failure with hypoxia (Acute) Acute exacerbation of chronic obstructive pulmonary disease (Acute) Gout Leukocytosis (Acute) Chronic hypoxic respiratory failure Acute hypokalemia (Acute) Shortness of breath (Acute) Multiple myeloma Last chemotherapy 2017 Follows with medical oncology in [facility] Diabetes Hypokalemia Heart failure with preserved ejection fraction COPD (chronic obstructive pulmonary disease) (Acute) Shortness of breath (Acute) Generalized anxiety disorder Chronic respiratory failure with hypoxia and hypercapnia Tobacco abuse counseling Chronic hypercapnic respiratory failure Moderate persistent asthma Constipation History of pulmonary embolism Obesity hypoventilation syndrome Chronic anticoagulation Acute bronchitis Pulmonary vascular congestion Right knee pain Nasal fracture Rib fractures (Acute) COPD (chronic obstructive pulmonary disease) (Acute) Medical History Acute exacerbation of chronic obstructive pulmonary disease Acute heart failure with preserved ejection fraction (HFpEF) Acute exacerbation of chronic obstructive pulmonary disease Tobacco abuse Opiate dependence Dyspnea Asthma Surgical History No pertinent past surgical history Family History Sister Asthma Social History Smoking Status: Unknown if ever smoked Tobacco Type: Cigarettes Cigarettes Per Day: 1 cigarette per day; Second Hand Exposure: No; Do You Dip or Chew Tobacco: No; Hx Alcohol Use: No Hx Substance Use: No Preferred Language: Congolese Communication Ability: Effective Bag Mender Required: No Beliefs That Will Affect Care: None Current Living Situation: Family Current Living Situation Comment: lives with sister temporarily Feels Safe at Home: Yes Assistive Devices: Oxygen - at Night and Other Physical Exam Physical Exam: General: A&Ox3. NAD. Cooperative. HEENT: Atraumatic, normocephalic. Hearing grossly intact Pulm: Diminished, scattered wheezing, trace crackles in the bases bilaterally symmetrical chest rise. No increased work of breathing. No respiratory distress. Cardiac: RRR, -mrg. Radial pulses intact and symmetrical. Abdominal: Nontender, nondistended, soft. BS present. Trace pitting edema of the ankles bilaterally Results & Data Results & Data Vital Signs (Past 12 Hours) Vital Signs Temp Pulse Pulse Resp BP BP Pulse Ox 12/13/23 18:02 36.7 C 101 H 20 144/104 H 93 12/13/23 15:55 99 H 18 141/96 H 94 12/13/23 15:04 35.9 C L 104 H 19 144/85 H 96 O2 Del Method 12/13/23 18:02 Room Air 12/13/23 15:55 Room Air 12/13/23 15:04 Room Air PG Care Time/CCT Total # of Minutes Spent Total Time Spent with Patient: Total time spent is greater than 50% in coordination of care (as documented) at patient's floor/unit and/or counseling patient: Coding Level of Care Code 39442 INT INP/OBS CARE 375MIN Diagnoses COPD exacerbation J44.1 Chronic heart failure with preserved ejection fraction I50.32 Heart failure chronicity: chronic DM II (diabetes mellitus, type II), controlled E11.9 (2) Heart failure with preserved ejection fraction Heart failure chronicity: chronic Qualified Code(s): I50.32 - Chronic diastolic (congestive) heart failure
[2023-12-13] MEDS: methylPREDNISolone 125 MG in SYRINGE 0 ML IV ONE (18:46)
[2023-12-13 18:58] LABS: Partial Thromboplastin Ratio 0.8; Partial Thromboplastin Time 21 Seconds (21-31); Prothrombin Time 10.5 Seconds (9.0-12.0)
[2023-12-13 19:20] LABS: Magnesium 2.2 mg/dl (1.7-2.4)
[2023-12-13] MEDS ORDERED: GLUCOSE 10 TAB/TUBE PO PRN (20:09)
[2023-12-13] MEDS ORDERED: PHARMACY GLYCEMIC MGMT CONSULT PRN (20:09)
[2023-12-13] MEDS ORDERED: GLUCAGON FOR INJ 1 MG VIAL SQ PRN (20:09)
[2023-12-13] MEDS ORDERED: ALBUT/IPRATROP 3MG/0.5MG NEB 3 ML VIAL NEB PRN (20:09)
[2023-12-13] MEDS ORDERED: AZITHROMYCIN 500 MG in DEXTROSE 5% 250 ML IV SCH (20:09)
[2023-12-13] MEDS ORDERED: DEXTROSE 50% 50 ML SYRINGE IV PRN (20:09)
[2023-12-13] MEDS ORDERED: GLUCOSE 40% GEL 15 GM TUBE PO PRN (20:09)
[2023-12-13] MEDS ORDERED: Nursing to Pharmacy Communication SCH (20:45)
[2023-12-13] MEDS: MAGNESIUM SULFATE / D5W 1 GM/100 ML BAG IV ONE (21:05)
[2023-12-13] MEDS: INSULIN ASPART PER UNIT CHARGE SC SCH (21:22)
[2023-12-13] MEDS: ENOXAPARIN 100 MG/1ML SYR SQ SCH (21:33)
[2023-12-13] MEDS: BUPRENORPHINE/NALOXONE 8/2 MG TAB SL SCH (21:33)
[2023-12-13] MEDS: cefTRIAXone SODIUM 2,000 MG/50 ML BAG IV SCH (21:33)
[2023-12-13] MEDS: BUMETANIDE 1 MG TAB PO SCH (21:34)
[2023-12-13] MEDS: QUEtiapine FUMARATE 200 MG TAB PO SCH (21:34)
[2023-12-13] MEDS: LANTUS PER UNIT CHARGE SC SCH (21:34)
[2023-12-13] MEDS: AZITHROMYCIN 250 MG TAB PO ONE (21:34)
[2023-12-13] MEDS: ALPRAZolam 0.5 MG TABLET PO SCH (21:38)
[2023-12-14] MEDS: allopurinoL 300 MG TAB PO SCH (07:23)
[2023-12-14] MEDS: FLUTICASONE FUROATE 200MCG 14 PUFFS/INHALER INH SCH (07:23)
[2023-12-14] MEDS: AZITHROMYCIN 250 MG TAB PO SCH (07:24)
[2023-12-14] MEDS: methylPREDNISolone 40 MG in SYRINGE 0 ML IV SCH (07:24)
[2023-12-14] MEDS: metOLazone 2.5 MG TABLET PO SCH (07:24)
[2023-12-14] MEDS: UMECLIDINIUM/VILANTEROL 62.5/25MCG 7 PUFFS/INHALER INH SCH (07:27)
--- NOTE | 2023-12-14 08:53 | Pharmacy Report ---
Pharmacy Glycemic Short Note 2 - Date of Service December 14, 2023 - Glycemic Short BSG Results (Last 24 hours): 12/13/23 12/13/23 12/13/23 16:21 19:33 20:28 Glucose 73 POC Glucose 142 H 128 H 12/14/23 08:18 Glucose POC Glucose 298 H OUTPATIENT ANTIDIABETIC REGIMEN: * Insulin glargine 68 units SC qAM * Insulin aspart 10 units SC TIDM + SSI * Ozempic 0.25 mg SC weekly HbA1c: 9.8% (10/16/23) ASSESSMENT: * LL is a 63 year old female admitted on 12/12 w/ COPD exacerbation * Currently ordered methylprednisolone 40 mg IV BID and ceftriaxone/azithromycin * Patient is known to pharmacy glycemic service for past hyperglycemia, usually in context of steroid administration * PMH includes multiple myeloma (s/p transplant 2014), COPD, CHF * Blood sugars did decline significantly from breakfast to lunch today (298 -> 85 mg/dL) * Will increase upper end of goal range to decrease amount of correctional insulin given PLAN FOR INPATIENT GLYCEMIC CONTROL: * Basal insulin * Lantus 40 units SQ this AM * Lantus 20-30-40 units SC HS (see EHR for details) * Reassess in AM * Bolus insulin * NovoLog per scale ACHS or Q6hrs while NPO * Goal Range: Low 110 mg/dL - High 140 mg/dL * Correction Factor: 15 mg/dL/unit * Nutritional / Prandial insulin per carb ratio of 1 unit per 5 grams CHO consumed
[2023-12-14] MEDS ORDERED: NON-FORMULARY MEDICATION (Fluticasone-Umeclidin-Vilanter [Trelegy Ellipta] 200-62.5-25 mcg INH SCH (09:00)
[2023-12-14] MEDS ORDERED: CITALOPRAM 20 MG TAB PO SCH (09:00)
[2023-12-14] MEDS ORDERED: NON-FORMULARY MEDICATION (Insulin Glargine 100 unit/mL (3 mL) insulin pen) SQ SCH (09:00)
--- NOTE | 2023-12-14 09:20 | Electrocardiogram Report ---
Test Reason : Blood Pressure : */* mmHG Vent. Rate : 100 BPM Atrial Rate : 100 BPM P-R Int : 136 ms QRS Dur : 72 ms QT Int : 340 ms P-R-T Axes : 16 9 71 degrees QTcB Int : 438 ms Normal sinus rhythm Poor R wave progression, consider anterior DC vs. lead placement vs. LVH Abnormal ECG When compared with ECG of 22-Nov-2023 07:38, No significant change was found Confirmed by Reagan Caraballo ([id number]) on 12/14/2023 9:19:32 AM Referred By: Confirmed By: Reagan Caraballo
--- NOTE | 2023-12-14 09:24 | Electrocardiogram Report ---
Test Reason : Blood Pressure : */* mmHG Vent. Rate : 100 BPM Atrial Rate : 100 BPM P-R Int : 144 ms QRS Dur : 84 ms QT Int : 362 ms P-R-T Axes : 40 17 86 degrees QTcB Int : 466 ms Sinus rhythm with Premature atrial complexes Poor R wave progression, consider anterior AK vs. lead placement vs. LVH Abnormal ECG When compared with ECG of 13-Dec-2023 15:39, Premature atrial complexes are now Present Confirmed by Reagan Caraballo ([id number]) on 12/14/2023 9:23:54 AM Referred By: REFERRED SELF Confirmed By: Reagan Caraballo
[2023-12-14 12:34] LABS: Base Excess VBG 16.8 mEq/L; HCO3 VBG 44 mmol/L; Oxygen Saturation VBG 60.7 %; PCO2 VBG 60 mmHg (38-50); PO2 VBG 33 mmHg; pH VBG 7.47 (7.36-7.41)
[2023-12-14 12:43] LABS: Basophils # (auto) 0.02 K/uL (0.00-0.20); Basophils % (auto) 0.1 %; Hematocrit (blood only) 45.5 % (37.0-47.0); Hemoglobin 14.7 g/dl (12.0-16.0); Immature Granulocytes # (auto) 0.24 K/uL (0.01-0.20); Immature Granulocytes % (auto) 1.3 %; Lymphocytes # (auto) 1.43 K/uL (1.20-3.40); Lymphocytes % (auto) 7.8 %; Mean Corpuscular Hemoglobin 27.2 pg (25.0-34.0); Mean Corpuscular Hgb Conc 32.3 g/dL (32.0-36.0); Mean Corpuscular Volume 84.1 fL (80.0-100.0); Mean Platelet Volume 10.1 fL (9.4-12.4); Monocytes # (auto) 0.42 K/uL (0.11-0.59); Monocytes % (auto) 2.3 %; Neutrophils # (auto) 16.15 K/uL (1.40-6.50); Neutrophils % (auto) 88.5 %; Nucleated RBC # (auto) 0.02 K/uL (0.00-0.12); Nucleated RBC % (auto) 0.1 %; Platelet Count 270 K/uL (130-400); RDW Standard Deviation 50.4 fL (36.4-46.3); Red Blood Count 5.41 M/uL (4.20-5.40); White Blood Count 18.26 K/ul (4.8-10.8)
--- NOTE | 2023-12-14 13:37 | XRay Report ---
XR chest 2V PA/lateral CLINICAL HISTORY: copd exacerbation TECHNIQUE: 2 views of the chest were obtained. Comparison: Comparison is made to chest radiograph 12/13/2023 FINDINGS: Exam is limited by underpenetration. The cardiomediastinal silhouette is normal. The lungs are clear. No evidence of pleural effusion or pneumothorax. IMPRESSION: No acute chest disease. ACT 112: Negative or not required by law. Electronically signed by: Raheem Macias M.D. 12/14/2023 1:35 PM
--- NOTE | 2023-12-14 13:59 | Hospitalist Progress Note ---
Date of Service December 14, 2023 Assessment & Plan (1) COPD exacerbation: Plan: Acute on chronic COPD exacerbation With wheezing, dyspnea, increased sputum production CXR without acute finding. Slightly congested appearing, received Lasix x 1 in the ER. Does have a leukocytosis with neutrophilic predominance and left shift. Given this and poor clinical appearance will extend coverage to Rocephin/azithromycin for acute COPD exacerbation and obtain a procalcitonin Continue home inhaler/equivalent DuoNebs as needed -Patient conitnues to require parenteral therapy for COPD and frequent nebs. will continue to monitor. (2) Heart failure with preserved ejection fraction: Plan: HFpEF, mild acute on chronic exacerbation Mildly congested x-ray without overt pulmonary edema, BNP minimally elevated Received Lasix in the ER, will defer additional to clinical reassessment No chest pain Continue home diuretics No MONICA and admission (3) DM II (diabetes mellitus, type II), controlled: Plan: Type II DM History of hypoglycemic reactions with steroids. Also sometimes gets sweets from any machines during prior admissions Basal bolus insulin while admitted Pharmacy glycemic consult due to history of labile requirements, and steroid use Plan History of DVT/PE Patient is on 1.5 mpk Lovenox at home, did not take this today. Will temporarily switch to 1 melinda per kilogram of Lovenox twice daily while inpatient, and give dose at time of admission Chronic stable issues AYAN: Continue Celexa/Seroquel/Xanax Gout: Continue allopurinol Multiple myeloma: S/p transplant 2014. Needs outpatient oncology follow-up, no acute inpatient change in management Obesity hypoventilation: PPV nightly. Use Trelegy at home DVT prophylaxis: Lovenox as noted Diet: Heart healthy, DM 2 Disposition: Medical telemetry CODE STATUS: Full code Admission and Anticipated Discharge Date Admission Date: December 13, 2023 Subjective Patient reports no new symptoms. She continues to feel SOB. Review of Systems Review of Systems: All systems reviewed & are unremarkable except as noted in HPI & below Physical Exam Physical Exam: General: A&Ox3. NAD. Cooperative. HEENT: Atraumatic, normocephalic. Hearing grossly intact Pulm: Diminished breath sounds, tight throughout. Cardiac: RRR, -mrg. Radial pulses intact and symmetrical. Abdominal: Nontender, nondistended, soft. BS present. Trace pitting edema of the ankles bilaterally Results & Data Results & Data Vital Signs (Past 12 Hours) Vital Signs Temp Pulse Pulse Pulse Resp BP BP 12/14/23 11:07 36.8 C 110 H 19 126/89 12/14/23 08:02 36.4 C L 105 H 19 122/88 12/14/23 07:15 95 H 12/14/23 04:30 36.5 C 92 H 20 121/70 12/14/23 04:29 80 14 Pulse Ox O2 Del Method O2 Flow Rate 12/14/23 11:07 100 Room Air 12/14/23 08:02 95 Room Air 12/14/23 07:15 12/14/23 04:30 91 Room Air 12/14/23 04:29 94 2 PG Care Time/CCT Total # of Minutes Spent Total Time Spent with Patient: Total time spent is greater than 50% in coordination of care (as documented) at patient's floor/unit and/or counseling patient: Coding Level of Care Code 96458 SUB INP/OBS CARE 2/35MIN Diagnoses COPD exacerbation J44.1 Chronic heart failure with preserved ejection fraction I50.32 Heart failure chronicity: chronic DM II (diabetes mellitus, type II), controlled E11.9 (2) Heart failure with preserved ejection fraction Heart failure chronicity: chronic Qualified Code(s): I50.32 - Chronic diastolic (congestive) heart failure
[2023-12-14] MEDS: LEVALBUTEROL 1.25 MG/3 ML NEB NEB SCH (16:47)
[2023-12-14] MEDS: CITALOPRAM 20 MG TAB PO SCH (20:26)
[2023-12-14] MEDS: LANTUS PER UNIT CHARGE SC SCH (20:28)
[2023-12-15] MEDS: methylPREDNISolone 40 MG in SYRINGE 0 ML IV SCH (07:35)
[2023-12-15 08:13] LABS: Base Excess VBG 16.4 mEq/L; HCO3 VBG 45 mmol/L; Oxygen Saturation VBG < 60.0 %; PCO2 VBG 64 mmHg (38-50); PO2 VBG 21 mmHg; pH VBG 7.45 (7.36-7.41)
[2023-12-15 08:27] LABS: BUN Creatinine Ratio 44.7 (10-20); Calcium 9.4 mg/dl (8.6-10.3); Creatinine Clr Calc Pharmacy 50.8 ml/min; Est GFR (African American) 54.4 ml/min; Potassium 2.4 mmol/L (3.5-5.1)
[2023-12-15] MEDS: LANTUS PER UNIT CHARGE SC SCH ×2 (08:57→20:36)
[2023-12-15] MEDS: POTASSIUM CHLORIDE / WTR 10 MEQ/100 ML PLCT IV SCH (09:31)
--- NOTE | 2023-12-15 13:19 | Pharmacy Report ---
Pharmacy Glycemic Short Note 2 - Date of Service December 15, 2023 - Glycemic Short BSG Results (Last 24 hours): 12/14/23 12/14/23 12/15/23 17:15 20:12 07:33 Glucose 103 H POC Glucose 142 H 110 H 12/15/23 12/15/23 08:04 12:05 Glucose POC Glucose 124 H 278 H OUTPATIENT ANTIDIABETIC REGIMEN: * Insulin glargine 68 units SC qAM * Insulin aspart 10 units SC TIDM + SSI * Ozempic 0.25 mg SC weekly HbA1c: 9.8% (10/16/23) ASSESSMENT: * LL is a 63 year old female admitted on 12/12 w/ COPD exacerbation * Currently ordered methylprednisolone 40 mg IV BID and ceftriaxon e/azithromycin * Patient is known to pharmacy glycemic service for past hyperglycemia, usually in context of steroid administration * PMH includes multiple myeloma (s/p transplant 2014), COPD, CHF * Blood sugars did decline significantly from breakfast to lunch today (298 -> 85 mg/dL) * Will increase upper end of goal range to decrease amount of correctional insulin given 12/15/23 * Patient received total 105 units of insulin yesterday: 60 units basal + 20 units bolus * BSGs yesterday were [phone] mg/dl. Fasting BSG today was 103 mg/dl. * Basal insulin continued the same- 40 units in AM and scale at HS based on BSG. * Spoke with nurse today. Patient did not receive adequate insulin coverage for carbs eaten at breakfast today since she returned her meal tray for another meal. Nurse gave only 4 units of insulin based off the meal that was in front of her which was apparently returned. Patient should have received 11 units. This seems to happen often per nurse. Pre-lunch BSG was therefore elevated at 278 mg/dl. PLAN FOR INPATIENT GLYCEMIC CONTROL: * Basal insulin * Lantus 40 units SQ this AM * Lantus 20-30-40 units SC HS (see EHR for details) * Bolus insulin * NovoLog per scale ACHS or Q6hrs while NPO * Goal Range: Low 110 mg/dL - High 140 mg/dL * Correction Factor: 15 mg/dL/unit * Nutritional / Prandial insulin per carb ratio of 1 unit per 5 grams CHO consumed
[2023-12-15] MEDS: NSS + 20MEQ KCL 20 MEQ/1,000 ML BAG IV SCH (17:22)
[2023-12-15] MEDS: ACETAMINOPHEN 325 MG TAB PO PRN (20:50)
[2023-12-15] MEDS: COLCHICINE 0.6 MG TAB PO PRN (21:12)
--- NOTE | 2023-12-15 21:48 | Hospitalist Progress Note ---
Date of Service December 15, 2023 Assessment & Plan (1) COPD exacerbation: Plan: Acute on chronic COPD exacerbation With wheezing, dyspnea, increased sputum production CXR without acute finding. Slightly congested appearing, received Lasix x 1 in the ER. Does have a leukocytosis with neutrophilic predominance and left shift. Given this and poor clinical appearance will extend coverage to Rocephin/azithromycin for acute COPD exacerbation and obtain a procalcitonin Continue home inhaler/equivalent DuoNebs as needed -Patient conitnues to require parenteral therapy for COPD and frequent nebs on 12/14 will continue to monitor. (2) Heart failure with preserved ejection fraction: Plan: HFpEF, mild acute on chronic exacerbation Mildly congested x-ray without overt pulmonary edema, BNP minimally elevated Received Lasix in the ER, will defer additional to clinical reassessment No chest pain Continue home diuretics No MONICA and admission (3) DM II (diabetes mellitus, type II), controlled: Plan: Type II DM History of hypoglycemic reactions with steroids. Also sometimes gets sweets from any machines during prior admissions Basal bolus insulin while admitted Pharmacy glycemic consult due to history of labile requirements, and steroid use Plan History of DVT/PE Patient is on 1.5 mpk Lovenox at home, did not take this today. Will temporarily switch to 1 melinda per kilogram of Lovenox twice daily while inpatient, and give dose at time of admission Chronic stable issues AYAN: Continue Celexa/Seroquel/Xanax Gout: Continue allopurinol Multiple myeloma: S/p transplant 2014. Needs outpatient oncology follow-up, no acute inpatient change in management Obesity hypoventilation: PPV nightly. Use Trelegy at home DVT prophylaxis: Lovenox as noted Diet: Heart healthy, DM 2 Disposition: Medical telemetry CODE STATUS: Full code Admission and Anticipated Discharge Date Admission Date: December 13, 2023 Subjective 63 yo demetrius reports feeling slightly better. She still feels short of breath. Review of Systems Review of Systems: All systems reviewed & are unremarkable except as noted in HPI & below Physical Exam Physical Exam: General: A&Ox3. NAD. Cooperative. HEENT: Atraumatic, normocephalic. Hearing grossly intact Pulm: Diminished breath sounds, however improved from yesterday. Cardiac: RRR, -mrg. Radial pulses intact and symmetrical. Abdominal: Nontender, nondistended, soft. BS present. Trace pitting edema of the ankles bilaterally Results & Data Results & Data Vital Signs (Past 12 Hours) Vital Signs Temp Pulse Pulse Resp BP BP Pulse Ox 12/15/23 19:22 36.3 C L 95 H 18 113/77 96 12/15/23 15:15 36.7 C 96 H 20 101/69 91 12/15/23 14:58 100 H 12/15/23 14:31 96 H 16 96 12/15/23 11:12 36.3 C L 95 H 18 136/79 96 O2 Del Method 12/15/23 19:22 Room Air 12/15/23 15:15 Room Air 12/15/23 14:58 12/15/23 14:31 Room Air 12/15/23 11:12 Room Air PG Care Time/CCT Total # of Minutes Spent Total Time Spent with Patient: Total time spent is greater than 50% in coordination of care (as documented) at patient's floor/unit and/or counseling patient: Coding Level of Care Code 27727 SUB INP/OBS CARE 2/35MIN Diagnoses COPD exacerbation J44.1 Chronic heart failure with preserved ejection fraction I50.32 Heart failure chronicity: chronic DM II (diabetes mellitus, type II), controlled E11.9 (2) Heart failure with preserved ejection fraction Heart failure chronicity: chronic Qualified Code(s): I50.32 - Chronic diastol ic (congestive) heart failure
[2023-12-15 23:30] LABS: Adenovirus PCR Not Detected (NotDetected); Bordetella parapertussis PCR Not Detected (NotDetected); Bordetella pertussis PCR Not Detected (NotDetected); Chlamydia pneumoniae PCR Not Detected (NotDetected); Coronavirus 229E PCR Not Detected (NotDetected); Coronavirus CoV-2 (COVID19)PCR Not Detected (NotDetected); Coronavirus HKU1 PCR Not Detected (NotDetected); Coronavirus NL63 PCR Not Detected (NotDetected); Coronavirus OC43PCR Not Detected (NotDetected); Human Metapneumovirus PCR Not Detected (NotDetected); Influenza A PCR Not Detected (NotDetected); Influenza B PCR Not Detected (NotDetected); Mycoplasma pneumoniae PCR Not Detected (NotDetected); Parainfluenza Virus 1 PCR Not Detected (NotDetected); Parainfluenza Virus 2 PCR Not Detected (NotDetected); Parainfluenza Virus 3 PCR Not Detected (NotDetected); Parainfluenza Virus 4 PCR Not Detected (NotDetected); Respiratory Syncytial VirusPCR Not Detected (NotDetected); Rhinovirus/Enterovirus PCR Not Detected (NotDetected)
[2023-12-16] MEDS: INDOMETHACIN 25 MG CAP PO STA ×2 (00:03→01:49)
--- NOTE | 2023-12-16 01:27 | Communication Note ---
Date of Service: December 16, 2023 Alerted that patient in significant right knee pain that patient believes is due to gout flare. Restarted patient's home colchicine. Given 1.2 mg to start with 0.6 mg additional. Given IV tylenol x1, indomethacin 25 mg x2, ice pack. Patient already on methylpred 40 mg daily for presumed COPD exacerbation. Ordered XR Knee and AM uric acid. Patient on 300 mg allopurinol QD. Patient now reports pain in the left knee. Per nursing she is tearful and stating that she cannot take it anymore. Patient does have a history of panic attacks and has had absolutely no improvement with gout treatment modalities. Will try one time dose of IV Ativan. If no improvement will consider dilaudid. Resident Activity Tracking Resident Involvement: Resident Care Provided Care Provided: Adult Hospital Medicine
[2023-12-16] MEDS: COLCHICINE 0.6 MG TAB PO ONE (01:48)
[2023-12-16] MEDS: ACETAMINOPHEN 1,000 MG/100 ML VIAL IV STA (01:50)
[2023-12-16] MEDS: LORazepam 1.5 MG in SYRINGE 0.75 ML IV ONE (03:39)
[2023-12-16 06:15] LABS: Hematocrit (blood only) 44.7 % (37.0-47.0); Hemoglobin 14.6 g/dl (12.0-16.0); Mean Corpuscular Hemoglobin 27.5 pg (25.0-34.0); Mean Corpuscular Hgb Conc 32.7 g/dL (32.0-36.0); Mean Corpuscular Volume 84.3 fL (80.0-100.0); Mean Platelet Volume 10.2 fL (9.4-12.4); Platelet Count 228 K/uL (130-400); RDW Coefficient of Variation 16.8 % (11.5-14.5); RDW Standard Deviation 49.4 fL (36.4-46.3)
[2023-12-16 06:30] LABS: BUN Creatinine Ratio 53.2 (10-20); C Reactive Protein 0.65 mg/dl (0-0.5); Calcium 8.9 mg/dl (8.6-10.3); Creatinine Clr Calc Pharmacy 50.5 ml/min; Est GFR (African American) 53.9 ml/min; Est GFR (Non-African American) 46.5 ml/min; Potassium 2.8 mmol/L (3.5-5.1)
--- NOTE | 2023-12-16 08:18 | Hospitalist Progress Note ---
Date of Service December 16, 2023 Assessment & Plan (1) COPD exacerbation: Plan: Acute on chronic COPD exacerbation With wheezing, dyspnea, increased sputum production CXR without acute finding. Slightly congested appearing, received Lasix x 1 in the ER. bronchitis treat with Rocephin/azithromycin Continue home inhaler/equivalent DuoNebs as needed -Patient continues to require parenteral therapy for COPD and frequent nebs on 12/14 (2) Heart failure with preserved ejection fraction: Plan: HFpEF, mild acute on chronic exacerbation lasix in ER No chest pain Continue home diuretics No MONICA and admission (3) DM II (diabetes mellitus, type II), controlled: Plan: Type II DM History of hypoglycemic reactions with steroids. Also sometimes gets sweets from any machines during prior admissions Basal bolus insulin while admitted Pharmacy glycemic consult due to history of labile requirements, and steroid use Plan History of DVT/PE Patient is on 1.5 mpk Lovenox at home, convert to 1 mg per kilogram of Lovenox twice daily while inpatient, Chronic stable issues AYAN: Continue Celexa/Seroquel/Xanax Gout: Continue allopurinol Multiple myeloma: S/p transplant 2014. Needs outpatient oncology follow-up, no acute inpatient change in management Obesity hypoventilation: PPV nightly. Use Trelegy at home DVT prophylaxis: Lovenox as noted CODE STATUS: Full code Admission and Anticipated Discharge Date Admission Date: December 14, 2023 Results & Data Results & Data Vital Signs (Past 12 Hours) Vital Signs Temp Pulse Pulse Pulse Resp BP Pulse Ox 12/16/23 07:57 97.3 F L 88 18 89/65 L 93 12/16/23 07:01 89 16 94 12/16/23 04:12 97.3 F L 93 H 20 110/77 98 12/16/23 00:00 98 H 12/15/23 23:22 92 H 20 98 12/15/23 23:11 97.3 F L 92 H 20 107/72 96 O2 Del Method 12/16/23 07:57 Room Air 12/16/23 07:01 Room Air 12/16/23 04:12 Room Air 12/16/23 00:00 12/15/23 23:22 Room Air 12/15/23 23:11 Room Air PG Care Time/CCT Total # of Minutes Spent Total Time Spent with Patient: Total time spent is greater than 50% in coordination of care (as documented) at patient's floor/unit and/or counseling patient: Coding Diagnoses COPD exacerbation J44.1 Chronic heart failure with preserved ejection fraction I50.32 Heart failure chronicity: chronic DM II (diabetes mellitus, type II), controlled E11.9 (2) Heart failure with preserved ejection fraction Heart failure chronicity: chronic Qualified Code(s): I50.32 - Chronic diastolic (congestive) heart failure
--- NOTE | 2023-12-16 11:05 | Hospitalist Progress Note ---
Date of Service December 16, 2023 Assessment & Plan (1) COPD exacerbation: Plan: Acute on chronic COPD exacerbation improving - patient denies wheezing, dyspnea, and sputum production CXR without acute finding. Slightly congested appearing, received Lasix x 1 in the ER. bronchitis treatment with Rocephin/azithromycin Continue home inhaler/equivalent duo nebs as needed - Solu-Medrol IV transitioned to prednisone 40 mg p.o. daily (2) Acute hypokalemia: Plan: - potassium level 2.4 on 12/14, was given 4 doses of 10 mEq potassium IV - potassium level 2.8 on 12/15, 3 doses of 10 mEq potassium IV and 30 mEq meq po ordered - magnesium 2.2 on 12/12 - Magnesium level to be checked in morning - patient is currently on home diuretics - BMP to be checked in morning for the next 3 days to monitor potassium levels (3) Bilateral knee pain: Plan: - Likely due to acute gout flare based on patient's history - patient complaining of bilateral knee pain with 7/10 pain on examination - patient requesting pain medication, oxycodone 10 mg p.o. every 6 hrs as needed ordered - On previous admission patient was diagnosed with acute gout flare, uric acid on 11/18 was 11.8, allopurinol increased to 300 mg daily at this time - uric acid on 12/15 was 8.0 - Patient was given colchicine 1.2 mg with an additional 0.6 mg on 12/15 for an acute flare - Will continue colchicine 0.6 mg twice daily for the next 2 days (until 12/17) based off patient's current creatinine clearance at 50.5 (4) Heart failure with preserved ejection fraction: Plan: HFpEF, mild acute on chronic exacerbation lasix given in ER patient currently denies chest pain and shortness of breath Continue home diuretics No MONICA on admission, creatinine mildly elevated at 1.24 on 12/15 (5) DM II (diabetes mellitus, type II), controlled: Plan: Type II DM History of hypoglycemic reactions with steroids. Also sometimes gets sweets from any machines during prior admissions Basal bolus insulin while admitted Pharmacy glycemic consult due to history of labile requirements, and steroid use Plan History of DVT/PE Patient is on 1.5 mpk Lovenox at home, converted to 1 mg per kilogram of Lovenox twice daily while inpatient Chronic stable issues AYAN: Continue Celexa/Seroquel/Xanax Multiple myeloma: S/p transplant 2014. Needs outpatient oncology follow-up, no acute inpatient change in management Obesity hypoventilation: PPV nightly. Use Trelegy at home DVT prophylaxis: Lovenox as noted CODE STATUS: Full code Admission and Anticipated Discharge Date Admission Date: December 14, 2023 Supervising Physician Co-Signing Physician Notes Patient was seen and examined independently I discussed the case with Peg TILLMAN I reviewed pertinent past medical social family history and also the plan of car e and agree with the plan of care. Patient was seen independently. She had some knee pain overnight. Respiratory status was improving but not at his baseline yet. Her knee pain was evaluated by x-ray did not show any significant osteoarthritis or joint effusion. Patient did have some improvement with pain control with colchicine and allopurinol. Patient's heart failure reduced ejection fraction COPD exacerbations are improving but not yet at baseline but continuing to watch with diuresis tapering steroids to p.o. for COPD and continuing to treat possible bronchitis. Examination shows to be awake alert appropriate. She has poor air movement no focal wheezes in her lungs with decreased breath sounds at the bases her card exam is regular without systolic murmur extremities with changes of chronic venous stasis. Agree with care plan below as listed we will continue treating COPD tapering steroids continue antibiotics for bronchitis Heart failure reduced ejection fraction will replete potassium continue diuresis Possible gouty arthritis flare will continue colchicine and allopurinol Remains on full anticoagulation for previous history of Dvt TPE Any exceptions will be noted below Subjective Patient was sitting in recliner sleeping upon examination. She stated that she is very tired and thinks it is due to her Celexa that she started 3 weeks ago. She thinks that the medication needs changed due to it making her tired for the past week. Regarding her knee pain that began last night, she stated that the pain kept her up crying last night. Both of her knees hurt at a 7/10 on the pain severity scale and she says that none of her medications are helping. She shared that she has never had gout before her previous hospital visit 3 weeks ago. Patient also complains of continuing leg swelling. She denies shortness of breath, cough, and chest pain. Review of Systems Constitutional: + fatigue; no fever and no chills Respiratory: no cough, no dyspnea and no wheezing Cardiovascular: no chest pain Gastrointestinal: no abdominal pain, no constipation and no diarrhea/loose stools Musculoskeletal: Bilateral knee pain Physical Exam Physical Exam: The patient was laying in her recliner sleeping, tired during examination and fell asleep multiple times. In no apparent distress. HEENT-Atraumatic, normocephalic. Hearing grossly intact Heart-normal S1 and S2. No murmurs, rubs or gallops. Lungs-diminished breath sounds, no respiratory distress, no accessory muscle use. Abdomen-normal bowel sounds and soft. Extremities-Bilateral pedal pitting edema. Bilateral knees with mild inflammation, free of effusions, crepitus, erythema, and tenderness to palpation. Full range of motion of bilateral lower extremities. Dermatologic-ecchymosis bilaterally on upper extremities. Results & Data Results & Data Vital Signs (Past 12 Hours) Vital Signs Temp Pulse Pulse Pulse Resp BP BP 12/16/23 08:38 12/16/23 08:35 106/64 12/16/23 08:14 92 H 12/16/23 07:57 36.3 C L 88 18 89/65 L 12/16/23 07:01 89 16 12/16/23 04:12 36.3 C L 93 H 20 110/77 12/16/23 00:00 98 H 12/15/23 23:22 92 H 20 12/15/23 23:11 36.3 C L 92 H 20 107/72 Pulse Ox O2 Del Method 12/16/23 08:38 Room Air 12/16/23 08:35 12/16/23 08:14 12/16/23 07:57 93 Room Air 12/16/23 07:01 94 Room Air 12/16/23 04:12 98 Room Air 12/16/23 00:00 12/15/23 23:22 98 Room Air 12/15/23 23:11 96 Room Air Laboratory Results Abnormal lab results 12/15/23 12/15/23 12/15/23 Range/Units 17:04 20:08 20:09 WBC (4.8-10.8) K/ul RDW Std Deviation (36.4-46.3) fL RDW Coeff of Malick (11.5-14.5) % Sodium (136-145) mmol/L Potassium (3.5-5.1) mmol/L Chloride (98-107) mmol/L Carbon Dioxide (21-32) mmol/L Anion Gap (3-11) BUN (6-23) mg/dl Creatinine (0.6-1.2) mg/dl BUN/Creatinine Ratio (10-20) Glucose (70-99(Fasting)) mg/dl POC Glucose 216 H 308 H* 208 H (70-99) mg/dl Uric Acid (2.6-7.2) mg/dl C-Reactive Protein (0-0.5) mg/dl B-Natriuretic Peptide (0-100) pg/ml 12/15/23 12/16/23 12/16/23 Range/Units 20:10 05:52 05:53 WBC 16.90 H (4.8-10.8) K/ul RDW Std Deviation 49.4 H (36.4-46.3) fL RDW Coeff of Malick 16.8 H (11.5-14.5) % Sodium 133 L (136-145) mmol/L Potassium 2.8 L (3.5-5.1) mmol/L Chloride 86 L (98-107) mmol/L Carbon Dioxide 35 H (21-32) mmol/L Anion Gap 12 H (3-11) BUN 66 H (6-23) mg/dl Creatinine 1.24 H (0.6-1.2) mg/dl BUN/Creatinine Ratio 53.2 H (10-20) Glucose 60 L (70-99(Fasting)) mg/dl POC Glucose 206 H (70-99) mg/dl Uric Acid 8.0 H (2.6-7.2) mg/dl C-Reactive Protein 0.65 H (0-0.5) mg/dl B-Natriuretic Peptide 112 H (0-100) pg/ml PG Care Time/CCT Total # of Minutes Spent Total Time Spent with Patient: Total time spent is greater than 50% in coordination of care (as documented) at patient's floor/unit and/or counseling patient: Coding Level of Care Code None Diagnoses COPD exacerbation J44.1 Acute hypokalemia E87.6 Bilateral knee pain M25.561; M25.562 Chronic heart failure with preserved ejection fraction I50.32 Heart failure chronicity: chronic DM II (diabetes mellitus, type II), controlled E11.9 (4) Heart failure with preserved ejection fraction Heart failure chronicity: chronic Qualified Code(s): I50.32 - Chronic diastolic (congestive) heart failure
[2023-12-16] MEDS: POTASSIUM CHLORIDE 10 MEQ TABCR PO STA (11:42)
[2023-12-16] MEDS: POTASSIUM CHLORIDE / WTR 10 MEQ/100 ML PLCT IV SCH (11:50)
[2023-12-16] MEDS: oxyCODONE HCL IR 5 MG TAB (IMMEDIATE RELEASE) PO PRN (14:52)
[2023-12-16] MEDS: SOD PHOSPHATE/SOD BIPHOSPHATE ENEMA 132 ML BTL PR STA (16:12)
--- NOTE | 2023-12-16 17:08 | Billing Data ---
Date of Service December 16, 2023 Coding Level of Care Code 60014 INT INP/OBS CARE
--- NOTE | 2023-12-16 19:28 | XRay Report ---
XR knee RT 1 or 2V routine CLINICAL HISTORY: knee pain TECHNIQUE: 2 views of the right knee were obtained. Comparison: Comparison is made to knee radiographs 10/27/2023 FINDINGS: There is no evidence of an acute fracture. Joint spaces are well-preserved. No joint effusion is seen . A fabella is incidentally seen. IMPRESSION: No evidence of acute osseous injury. ACT 112: Negative or not required by law. Electronically signed by: Raheem Macias M.D. 12/16/2023 7:26 PM
[2023-12-16] MEDS: CITALOPRAM 20 MG TAB PO SCH (19:58)
[2023-12-17 07:33] LABS: Hematocrit (blood only) 41.3 % (37.0-47.0); Hemoglobin 13.5 g/dl (12.0-16.0); Mean Corpuscular Hemoglobin 27.7 pg (25.0-34.0); Mean Corpuscular Hgb Conc 32.7 g/dL (32.0-36.0); Mean Corpuscular Volume 84.8 fL (80.0-100.0); Mean Platelet Volume 10.4 fL (9.4-12.4); Platelet Count 214 K/uL (130-400); RDW Coefficient of Variation 16.5 % (11.5-14.5); RDW Standard Deviation 50.3 fL (36.4-46.3); Red Blood Count 4.87 M/uL (4.20-5.40); White Blood Count 13.03 K/ul (4.8-10.8)
[2023-12-17 08:30] LABS: Anion Gap 7 (3-11); BUN Creatinine Ratio 55.8 (10-20); Blood Urea Nitrogen 48 mg/dl (6-23); Calcium 8.7 mg/dl (8.6-10.3); Carbon Dioxide 38 mmol/L (21-32); Chloride 90 mmol/L (98-107); Creatinine Clr Calc Pharmacy 72.5 ml/min; Est GFR (African American) 83.9 ml/min; Est GFR (Non-African American) 72.4 ml/min; Glucose 154 mg/dl (70-99(Fasting)); Magnesium 2.5 mg/dl (1.7-2.4); Sodium 135 mmol/L (136-145)
[2023-12-17] MEDS: predniSONE 20 MG TAB PO SCH (08:47)
[2023-12-17] MEDS: COLCHICINE 0.6 MG TAB PO SCH (08:48)
--- NOTE | 2023-12-17 11:28 | Hospitalist Progress Note ---
Date of Service December 17, 2023 Assessment & Plan (1) COPD exacerbation: Plan: Acute on chronic COPD exacerbation mild decline CXR on 12/13 without acute finding. Slightly congested appearing, received Lasix x 1 in the ER. bronchitis treatment with Rocephin/azithromycin - course of azithromycin finished on 12/16 - course of Rocephin to be finished on 12/19 - 2 step test ordered to be completed to reassess patient's oxygen needs - Continue home inhaler/equivalent duo nebs as needed - Prednisone 40 mg p.o. daily (2) Acute hypokalemia: Plan: - potassium level 2.4 on 12/14, was given 4 doses of 10 mEq potassium IV - potassium level 2.8 on 12/15, 3 doses of 10 mEq potassium IV and 30 mEq meq po ordered - potassium level 2.9 on 12/16, 4 doses of 10 mEq potassium IV and 30 mEq meq p.o. ordered - magnesium slightly elevated at 2.5 on 12/16 - metolazone and bumex discontinued, likely contributing to continued hypokalemia - patient will remain on med tele to monitor for arrhythmias - will reassess BMP in morning to check potassium level (3) Bilateral knee pain: Plan: - Likely due to acute gout flare - improving - patient had bilateral knee pain on 12/15, 12/16 has subsided to right knee pain - uric acid on 12/15 was 8.0 - Patient was given colchicine 1.2 mg with an additional 0.6 mg on 12/15 for an acute flare - Will continue colchicine 0.6 mg twice daily for the next 2 days (until 12/17) based off patient's current creatinine clearance at 50.5 - continue with allopurinol (4) Heart failure with preserved ejection fraction: Plan: HFpEF, mild acute on chronic exacerbation lasix given in ER patient is complaining of lower leg edema with signs of venous stasis Bumex and metolazone held due to continuing hypokalemia No MONICA on admission, creatinine 0.86 on 12/16 (5) DM II (diabetes mellitus, type II), controlled: Plan: Type II DM History of hypoglycemic reactions with steroids. Also sometimes gets sweets from any machines during prior admissions Basal bolus insulin while admitted Pharmacy glycemic consult due to history of labile requirements, and steroid use Plan History of DVT/PE Patient is on 1.5 mpk Lovenox at home, converted to 1 mg per kilogram of Lovenox twice daily while inpatient Chronic stable issues AYAN: Continue Celexa/Seroquel/Xanax Multiple myeloma: S/p transplant 2014. Needs outpatient oncology follow-up, no acute inpatient change in management Obesity hypoventilation: PPV nightly. Use Trelegy at home DVT prophylaxis: Lovenox as noted CODE STATUS: Full code Admission and Anticipated Discharge Date Admission Date: December 14, 2023 Supervising Physician Co-Signing Physician Notes Patient was seen and examined independently I discussed the case with Peg TILLMAN I reviewed pertinent past medical social family history and also the plan of care and agree with the plan of care. Patient was seen independently. Patient is improving knee pain but baseline respiratory distress. Patient informs that she has oxygen at home she typically uses also noninvasive positive pressure ventilation at times. Patient's heart failure reduced ejection fraction COPD exacerbations nearing her baseline but continuing tapering steroids to p.o. for COPD and continuing to treat possible bronchitis. Patient has been off diuretics and has had stable heart failure. Examination shows to be awake alert appropriate. She has poor air movement no focal wheezes in her lungs with decreased breath sounds at the bases her card exam is regular without systolic murmur extremities with changes of chronic venous stasis. Agree with care plan as listed we will continue treating COPD tapering steroids continue antibiotics for bronchitis Heart failure reduced ejection fraction will once again need to replete potassium holding metolazone at this time consider spironolactone or amiloride if hypokalemia continues to be an issue Possible gouty arthritis flare will continue colchicine and allopurinol Remains on full anticoagulation for previous history of Dvt TPE Any exceptions will be noted below Subjective Upon examination patient was walking from the bathroom to her recliner chair and appeared winded. She stated that she was more out of breath than normal on exertion. She shared that throughout her hospital stay her shortness of breath was improving but today has taken a decline. The patient stated that the shortness of breath is only on exertion. She denies mucus production and wheezing, but does have a cough that has been consistent throughout her hospital stay. Patient stated that she is doing okay and slept well with her CPAP on all night. She is still complaining of right knee pain, however improving. The pain in her left knee has subsided. The patient is complaining of a purple discoloration on her right lower extremity towards her ankle, she still has bilateral lower extremity swelling that has been ongoing throughout her hospital stay. Patient stated that she is less sleepy today due to her Celexa being moved to nighttime. Patient is complaining of excessive bruising on her upper extremities. Upon reexamination patient now states that her shortness of breath is the same as yesterday. The patient stated that at home she was getting used to wearing her CPAP at night and was wearing it for the full night. She also used it during the day whenever she felt short of breath but states that it was not often. She could not give an exact number of how often she used it during the day. Review of Systems Review of Systems: See above Physical Exam Physical Exam: The patient was sitting in her recliner chair, with audible breathing. Patient was in no apparent distress. HEENT-Atraumatic, normocephalic. Hearing grossly intact Heart-normal S1 and S2. No murmurs, rubs or gallops. Lungs- diminished breath sounds, audible breathing, no respiratory distress, no accessory muscle use. Abdomen-normal bowel sounds and soft. Extremities-Bilateral pedal pitting edema. Purple discoloration of right lower extremity demonstrating signs of venous stasis. Bilateral knees free of inflammation, effusions, crepitus, erythema, and tenderness to palpation. Full range of motion of bilateral lower extremities. Dermatologic-ecchymosis bilaterally on upper extremities. Results & Data Results & Data Vital Signs (Past 12 Hours) Vital Signs Temp Pulse Pulse Resp BP BP Pulse Ox 12/17/23 10:12 12/17/23 07:45 36.4 C L 89 16 111/56 L 94 12/17/23 07:30 91 H 12/17/23 07:19 89 16 90 12/17/23 04:11 37.1 C 80 16 116/68 96 12/17/23 03:59 12 99 12/17/23 00:00 107 H O2 Del Method O2 Flow Rate 12/17/23 10:12 Room Air 12/17/23 07:45 Room Air 12/17/23 07:30 12/17/23 07:19 Room Air 12/17/23 04:11 Room Air, BiPAP 12/17/23 03:59 2 12/17/23 00:00 PG Care Time/CCT Total # of Minutes Spent Total Time Spent with Patient: Total time spent is greater than 50% in coordination of care (as documented) at patient's floor/unit and/or counseling patient: Coding Level of Care Code None Diagnoses COPD exacerbation J44.1 Acute hypokalemia E87.6 Bilateral knee pain M25.561; M25.562 Chronic heart failure with preserved ejection fraction I50.32 Heart failure chronicity: chronic DM II (diabetes mellitus, type II), controlled E11.9 (4) Heart failure with preserved ejection fraction Heart failure chronicity: chronic Qualified Code(s): I50.32 - Chronic diastolic (congestive) heart failure
[2023-12-17] MEDS: POTASSIUM CHLORIDE 10 MEQ TABCR PO STA (12:40)
[2023-12-17] MEDS: POTASSIUM CHLORIDE / WTR 10 MEQ/100 ML PLCT IV SCH ×2 (12:43→14:20)
[2023-12-17] MEDS: SODIUM CHLORIDE 0.9% 1,000 ML IV ONE (12:46)
--- NOTE | 2023-12-17 14:16 | Pharmacy Report ---
Pharmacy Glycemic Short Note 2 - Date of Service December 17, 2023 - Glycemic Short BSG Results (Last 24 hours): 12/16/23 12/16/23 12/17/23 16:09 19:45 07:10 Glucose 154 H POC Glucose 91 125 H 12/17/23 12/17/23 08:09 12:25 Glucose POC Glucose 121 H 209 H OUTPATIENT ANTIDIABETIC REGIMEN: * Insulin glargine 68 units SC qAM * Insulin aspart 10 units SC TIDM + SSI * Ozempic 0.25 mg SC weekly HbA1c: 9.8% (10/16/23) ASSESSMENT: * LL is a 63 year old female admitted on 12/12 w/ COPD exacerbation * Currently ordered methylprednisolone 40 mg IV BID and ceftriaxone/a zithromycin * Patient is known to pharmacy glycemic service for past hyperglycemia, usually in context of steroid administration * PMH includes multiple myeloma (s/p transplant 2014), COPD, CHF * Blood sugars did decline significantly from breakfast to lunch today (298 -> 85 mg/dL) * Will increase upper end of goal range to decrease amount of correctional insulin given 12/15/23 * Patient received total 105 units of insulin yesterday: 60 units basal + 20 units bolus * BSGs yesterday were [id number] mg/dl. Fasting BSG today was 103 mg/dl. * Basal insulin continued the same- 40 units in AM and scale at HS based on BSG. * Spoke with nurse today. Patient did not receive adequate insulin coverage for carbs eaten at breakfast today since she returned her meal tray for another meal. Nurse gave only 4 units of insulin based off the meal that was in front of her which was apparently returned. Patient should have received 11 units. This seems to happen often per nurse. Pre-lunch BSG was therefore elevated at 278 mg/dl. 12/17/23 * Blood sugars tightly controlled yesterday w/ last dose of methylprednisolone * Received 80 units of insulin (50/50 basal/bolus split) * Steroids changed to prednisone 40 mg PO daily starting today * Will loosen carb ratio slightly given change in steroids - if high today will tighen again tomorrow PLAN FOR INPATIENT GLYCEMIC CONTROL: * Basal insulin * Lantus 40 units SQ this AM * Lantus 0-10-15 units SC HS (see EHR for details) * Consider NPH tomorrow * Bolus insulin * NovoLog per scale ACHS or Q6hrs while NPO * Goal Range: Low 110 mg/dL - High 160 mg/dL * Correction Factor: 20 mg/dL/unit * Nutritional / Prandial insulin per carb ratio of 1 unit per 5 grams CHO consumed
[2023-12-17] MEDS: LANTUS PER UNIT CHARGE SC SCH (20:33)
[2023-12-17] MEDS: BUPRENORPHINE/NALOXONE 8/2 MG TAB SL ONE (21:36)
[2023-12-18] MEDS: BUPRENORPHINE/NALOXONE 8/2 MG TAB SL SCH (08:19)
[2023-12-18] MEDS: NovoLIN-N (NPH) PER UNIT CHARGE SQ SCH (09:08)
[2023-12-18 09:53] LABS: BUN Creatinine Ratio 45.2 (10-20); Calcium 8.7 mg/dl (8.6-10.3); Creatinine Clr Calc Pharmacy 101.4 ml/min; Est GFR (Non-African American) 96.6 ml/min; Potassium 2.9 mmol/L (3.5-5.1)
--- NOTE | 2023-12-18 12:58 | Pharmacy Report ---
Pharmacy Glycemic Short Note 2 - Date of Service December 18, 2023 - Glycemic Short BSG Results (Last 24 hours): 12/17/23 12/17/23 12/18/23 16:32 19:45 08:12 Glucose POC Glucose 197 H 226 H 136 H 12/18/23 12/18/23 08:58 12:17 Glucose 184 H POC Glucose 98 OUTPATIENT ANTIDIABETIC REGIMEN: * Insulin glargine 68 units SC qAM * Insulin aspart 10 units SC TIDM + SSI * Ozempic 0.25 mg SC weekly HbA1c: 9.8% (10/16/23) ASSESSMENT: * LL is a 63 year old female admitted on 12/12 w/ COPD exacerbation * Currently ordered methylprednisolone 40 mg IV BID and ceftriaxone/a zithromycin * Patient is known to pharmacy glycemic service for past hyperglycemia, usually in context of steroid administration * PMH includes multiple myeloma (s/p transplant 2014), COPD, CHF * Blood sugars did decline significantly from breakfast to lunch today (298 -> 85 mg/dL) * Will increase upper end of goal range to decrease amount of correctional insulin given 12/15/23 * Patient received total 105 units of insulin yesterday: 60 units basal + 20 units bolus * BSGs yesterday were 866-95-154-110 mg/dl. Fasting BSG today was 103 mg/dl. * Basal insulin continued the same- 40 units in AM and scale at HS based on BSG. * Spoke with nurse today. Patient did not receive adequate insulin coverage for carbs eaten at breakfast today since she returned her meal tray for another meal. Nurse gave only 4 units of insulin based off the meal that was in front of her which was apparently returned. Patient should have received 11 units. This seems to happen often per nurse. Pre-lunch BSG was therefore elevated at 278 mg/dl. 12/17/23 * Blood sugars tightly controlled yesterday w/ last dose of methylprednisolone * Received 80 units of insulin (50/50 basal/bolus split) * Steroids changed to prednisone 40 mg PO daily starting today * Will loosen carb ratio slightly given change in steroids - if high today will tighten again tomorrow 12/18/23 * Blood sugars elevated yesterday so will change from Lantus to combination of NPH and Lantus to better cover prednisone * Lantus scale this evening w/ no change to Novolog PLAN FOR INPATIENT GLYCEMIC CONTROL: * Basal insulin * NPH 40 units SC w/ prednisone (~0.4 unit/kg) * Lantus 10-15-20 units SC HS (see EHR for details) * Reassess basal in AM * Bolus insulin * NovoLog per scale ACHS or Q6hrs while NPO * Goal Range: Low 110 mg/dL - High 160 mg/dL * Correction Factor: 20 mg/dL/unit * Nutritional / Prandial insulin per carb ratio of 1 unit per 5 grams CHO consumed
[2023-12-18] MEDS: POTASSIUM CHLORIDE CRTAB 20 MEQ TABCR PO STA (17:52)
[2023-12-18] MEDS: POTASSIUM CHLORIDE / WTR 10 MEQ/100 ML PLCT IV SCH (17:53)
[2023-12-18] MEDS ORDERED: POLYETHYLENE (MIRALAX) 17 GM PACK PO PRN (20:29)
[2023-12-18] MEDS: LANTUS PER UNIT CHARGE SC SCH (20:30)
--- NOTE | 2023-12-18 22:06 | Hospitalist Progress Note ---
Date of Service December 18, 2023 Assessment & Plan (1) COPD exacerbation: Plan: Acute on chronic COPD exacerbation mild decline CXR on 12/13 without acute finding. Slightly congested appearing, received Lasix x 1 in the ER. bronchitis treatment with Rocephin/azithromycin - course of azithromycin finished on 12/16 - course of Rocephin to be finished on 12/19 - 2 step test ordered to be completed to reassess patient's oxygen needs: completed on 12/17 no need for oxygen. - Continue home inhaler/equivalent duo nebs as needed - Prednisone 40 mg p.o. daily (2) Acute hypokalemia: Plan: - potassium level 2.4 on 12/14, was given 4 doses of 10 mEq potassium IV - potassium level 2.8 on 12/15, 3 doses of 10 mEq potassium IV and 30 mEq meq po ordered - potassium level 2.9 on 12/16, 4 doses of 10 mEq potassium IV and 30 mEq meq p.o. ordered - magnesium slightly elevated at 2.5 on 12/16 - metolazone and bumex discontinued, likely contributing to continued hypokalemia - patient will remain on med tele to monitor for arrhythmias - Potassium remains low on 12/17. -Cuco consider adding spironolactone in leui of her metolazone. Currently only on loop diuretic. will consult neprhology to rule out other causes of hypokalemia: RTA (3) Bilateral knee pain: Plan: - Likely due to acute gout flare - improving - patient had bilateral knee pain on 12/15, 12/16 has subsided to right knee pain - uric acid on 12/15 was 8.0 - Patient was given colchicine 1.2 mg with an additional 0.6 mg on 12/15 for an acute flare - Will continue colchicine 0.6 mg twice daily for the next 2 days (until 12/17) based off patient's current creatinine clearance at 50.5 - continue with allopurinol (4) Heart failure with preserved ejection fraction: Plan: HFpEF, mild acute on chronic exacerbation lasix given in ER patient is complaining of lower leg edema with signs of venous stasis Bumex and metolazone held due to continuing hypokalemia No MONICA on admission, creatinine 0.86 on 12/16 (5) DM II (diabetes mellitus, type II), controlled: Plan: Type II DM History of hypoglycemic reactions with steroids. Also sometimes gets sweets from any machines during prior admissions Basal bolus insulin while admitted Pharmacy glycemic consult due to history of labile requirements, and steroid use Plan History of DVT/PE Patient is on 1.5 mpk Lovenox at home, converted to 1 mg per kilogram of Lovenox twice daily while inpatient Chronic stable issues AYAN: Continue Celexa/Seroquel/Xanax Multiple myeloma: S/p transplant 2014. Needs outpatient oncology follow-up, no acute inpatient change in management Obesity hypoventilation: PPV nightly. Use Trelegy at home DVT prophylaxis: Lovenox as noted CODE STATUS: Full code Admission and Anticipated Discharge Date Admission Date: December 14, 2023 Subjective Patient frustrated with potassium being consistently low. Review of Systems Review of Systems: All systems reviewed & are unremarkable except as noted in HPI & below Physical Exam Physical Exam: General: A&Ox3. NAD. Cooperative. HEENT: Atraumatic, normocephalic. Hearing grossly intact Pulm: clear Cardiac: RRR, -mrg. Radial pulses intact and symmetrical. Abdominal: Nontender, nondistended, soft. BS present. pitting edema of the ankles bilaterally Results & Data Results & Data Vital Signs (Past 12 Hours) Vital Signs Temp Pulse Pulse Resp BP Pulse Ox O2 Del Method 12/18/23 20:33 36.4 C L 79 16 111/59 L 98 Room Air 12/18/23 15:31 37.1 C 98 H 18 106/68 95 Room Air 12/18/23 14:39 99 H 19 98 Room Air 12/18/23 14:36 101 H 12/18/23 11:50 37.0 C 98 H 20 124/77 96 Room Air 12/18/23 10:20 Room Air FiO2 12/18/23 20:33 12/18/23 15:31 12/18/23 14:39 21 12/18/23 14:36 12/18/23 11:50 12/18/23 10:20 PG Care Time/CCT Total # of Minutes Spent Total Time Spent with Patient: Total time spent is greater than 50% in coordination of care (as documented) at patient's floor/unit and/or counseling patient: Coding Level of Care Code 82918 SUB INP/OBS CARE 3/50MIN Diagnoses COPD exacerbation J44.1 Acute hypokalemia E87.6 Bilateral knee pain M25.561; M25.562 Chronic heart failure with preserved ejection fraction I50.32 Heart failure chronicity: chronic DM II (diabetes mellitus, type II), controlled E11.9 Time Spent (min) 50 (4) Heart failure with preserved ejection fraction Heart failure chronicity: chronic Qualified Code(s): I50.32 - Chronic diastolic (congestive) heart failure
[2023-12-19 07:36] LABS: BUN Creatinine Ratio 31.7 (10-20); Calcium 8.6 mg/dl (8.6-10.3); Creatinine Clr Calc Pharmacy 106.1 ml/min; Est GFR (African American) 113.2 ml/min; Est GFR (Non-African American) 97.7 ml/min; Potassium 3.6 mmol/L (3.5-5.1)
[2023-12-19] MEDS: POTASSIUM CHLORIDE CRTAB 20 MEQ TABCR PO ONE (09:12)
[2023-12-19] MEDS: NovoLIN-N (NPH) PER UNIT CHARGE SQ SCH (09:43)
[2023-12-19] MEDS: CARBOHYDRATES FOR HYPOGLYCEMIA PO PRN (12:18)
--- NOTE | 2023-12-19 12:29 | Nephrology Consultation ---
Date of Consultation December 19, 2023 Assessment & Plan (1) Hypokalemia: Venous blood gas this hospitalization shows a compensated respiratory acidosis. Serum bicarbonate is appropriately elevated. There is no evidence of hyperchloremic metabolic acidosis to suggest an RTA. Hypokalemia is likely a direct result from diuretic therapy. During hospitalization patient did develop severe hypokalemia with a deficit of approximately 150 mEq. This has been corrected with a combination of both oral and IV KCl supplementation. Both serum potassium and serum magnesium are within normal limits this morning. Patient has a longstanding history of recurrent HFpEF managed with oral Bumex and metolazone. Recommend that she received dietary education on a 1500 mg/day sodium restricted diet and continue bumetanide therapy. Recommend avoiding metolazone due to history of hypokalemia. Would instead substitute spironolactone to block aldosterone effect and also help raise serum potassium. Will sign off. Please call if further nephrology evaluation is needed. History of Present Illness Reason for Consultation: Hypokalemia Attending Physician: Mireya Cárdenas MD History of Present Illness Ms. Monzon is a 63-year-old female who is seen at the request of Dr. Salvador for evaluation of hypokalemia, rule out RTA. Information for the HPI is obtained from direct patient interview and review of the EMR. HPI is summarized as follows: Ms. Monzon has preserved kidney function. She has not required nephrology evaluation in the past. Her baseline creatinine has been 0.6. Ms. Monzon's medical history is significant for ongoing tobacco use complicated by recurrent COPD, CHF with preserved ejection fraction (08/18 echo revealed LVEF 60-65%), opiate dependence, AODM, gout, h/o multiple myeloma. Ms. Monzon reports that she resides in [place], [place]. Over the last year she has been living in [place] with her son. Ms. Monzon was admitted to [facility] 12/13/2023 due to COPD exacerbation and CHF. She was managed with nebulizer therapy, steroids and received 1 dose of IV Bumex in the emergency department. With diuretic therapy patient became progressively hypokalemic. Serum potassium dropped to 2.4 and patient required approximately 140 mEq KCl combined by oral and IV route to correct serum potassium. This morning potassium is acceptable at 3.6 nephrology consultation has been requested to determine if patient has an underlying RTA. Serum magnesium has remained within normal range throughout patient hospitalization. Serum bicarbonate has been elevated consistent with patient's history of COPD Allergies Allergy/AdvReac Type Severity Reaction Status Date / Time codeine Allergy Severe Anaphylaxis Verified 11/14/23 01:37 Iodinated Contrast Media Allergy Severe Anaphylaxis Verified 11/14/23 01:37 shellfish derived Allergy Severe Anaphylaxis Verified 11/14/23 01:37 tramadol Allergy Intermediate ITCHINESS Verified 11/14/23 01:37 iohexol Allergy Unknown CAN'T Verified 11/14/23 01:37 REMEMBER diphenhydramine AdvReac Severe Anxiety Verified 11/14/23 01:37 [From Benadryl] promethazine AdvReac Intermediate Anxiety Verified 11/14/23 01:37 Home Medications Medication Instructions Recorded Confirmed Type buprenorphine 8 mg-naloxone 2 mg 0.5 film sublingual BID 05/14/22 12/13/23 History sublingual film nystatin 100,000 unit/gram topical 1 applic topical BID PRN UNDER 05/14/22 12/13/23 History powder BREASTS NEEDED. ondansetron HCl 4 mg tablet 4 mg PO Q8H PRN NAUSEA/VOMITING 05/14/22 12/13/23 History quetiapine 200 mg tablet 200 mg PO HS 05/14/22 12/13/23 History levalbuterol HCl 1.25 mg/3 mL 1.25 mg inhalation TID PRN 01/16/23 12/13/23 History solution for nebulization Shortness Of Breath Or Wheezing enoxaparin 150 mg/mL subcutaneous 150 mg subcut UD 05/07/23 12/13/23 History syringe alprazolam 0.5 mg tablet 0.5 mg PO TID #14 tabs 08/02/23 12/13/23 Rx albuterol sulfate 90 mcg/actuation 2 puff inhalation UD PRN Shortness 08/30/23 12/13/23 History aerosol inhaler Of Breath Or Wheezing guaifenesin 600 mg tablet, 600 mg PO Q12 Congestion 09/11/23 12/13/23 History extended release 12 hr (Mucinex) fluticasone propionate 50 1 spray intranasal BID nasal 09/15/23 12/13/23 Rx mcg/actuation nasal congestion #0 mL spray,suspension (Flonase Allergy Relief) fluticasone fur. 200 mcg-umeclid 1 ea inhalation QAM #60 ea 09/16/23 12/13/23 Rx 62.5 mcg-vilant 25 mcg inhalat.powder (Trelegy Ellipta) levalbuterol tartrate 45 2 puff inhalation Q4 PRN WHEEZE 09/16/23 12/13/23 Rx mcg/actuation aerosol inhaler #15 grams bumetanide 2 mg tablet 2 mg PO BID #60 tabs 09/29/23 12/13/23 Rx insulin glargine 100 unit/mL (3 68 unit (0.68 mL) subcut QAM #15 mL 10/17/23 12/13/23 Rx mL) subcutaneous pen ipratropium bromide 0.02 % 3 ml continuous nebulization QID 10/17/23 12/13/23 Rx solution for inhalation PRN shortness of breath #75 mL calcium polycarbophil 625 mg 625 mg PO QAM #30 tabs 10/30/23 12/13/23 Rx tablet (Fiber (calcium polycarbophil)) colchicine 0.6 mg tablet (Colcrys) 0.6 mg PO BID PRN gout attacks #60 10/30/23 12/13/23 Rx tabs ibuprofen 200 mg tablet 600 mg (3 x 200 mg) PO TID PRN 10/30/23 12/13/23 Rx pain #30 tabs Ozempic Inj 0.25 mg INJ WK 11/07/23 12/13/23 History insulin aspart U-100 100 unit/mL 0 unit subcut TIDM 11/07/23 12/13/23 History (3 mL) subcutaneous pen (Novolog FlexPen U-100 Insulin aspart) metolazone 2.5 mg tablet 2.5 mg PO MoWeFr@0900 #30 tabs 11/23/23 12/13/23 Rx potassium chloride 20 mEq 40 meq (2 x 20 mEq) PO QID #30 tabs 11/23/23 12/13/23 Rx tablet,extended release(part/cryst) allopurinol 100 mg tablet 300 mg PO QAM 12/13/23 12/13/23 History citalopram 10 mg tablet 10 mg PO DAILY 12/13/23 12/13/23 History Patient History Medical History Acute exacerbation of chronic obstructive pulmonary disease Acute heart failure with preserved ejection fraction (HFpEF) Acute exacerbation of chronic obstructive pulmonary disease Tobacco abuse Opiate dependence Dyspnea Asthma Surgical History No pertinent past surgical history Family History Sister Asthma Social History Smoking Status: Current every day smoker Tobacco Type: Cigarettes Cigarettes Per Day: 1 cigarette per day; Second Hand Exposure: No; Do You Dip or Chew Tobacco: No; Hx Alcohol Use: No Hx Substance Use: No Preferred Language: Greenlandic Communication Ability: Effective Commercial Insurance Underwriter Required: No Beliefs That Will Affect Care: None Current Living Situation: Family Current Living Situation Comment: lives with sister temporarily Feels Safe at Home: Yes Assistive Devices: CPAP and Oxygen - Continuous Review of Systems Constitutional: no fever Eyes: no problem reported Ear, Nose, Mouth, Throat: no problem reported Respiratory: no cough and no dyspnea Cardiovascular: + edema (1+ pretibial pitting edema); no chest pain Gastrointestinal: no abdominal pain, no nausea, no vomiting and no diarrhea/loose stools Genitourinary: no dysuria and no hematuria Physical Exam Constitutional: not in distress Eyes: PERRL, conjunctivae normal, anicteric sclerae ENMT: external ear and nose normal, oropharynx normal Neck: trachea midline, no thyromegaly Respiratory: normal respiratory effort, lungs clear to auscultation Cardiovascular: Rate/Rhythm: regular rate and regular rhythm Extremities: + edema (1+ pretibial pitting edema) Gastrointestinal (Abdomen): normal bowel sounds, soft, nontender, no hepatosplenomegaly Neurologic: Speech / Cognition: normal speech and normal cognition Psychiatric: Affect: + anxious affect Results & Data Vital Signs (Past 12 Hours) Vital Signs Temp Pulse Pulse Resp BP Pulse Ox O2 Del Method 12/19/23 11:58 36.8 C 101 H 22 133/79 96 Room Air 12/19/23 08:02 36.9 C 101 H 20 105/73 94 Room Air 12/19/23 08:00 Room Air 12/19/23 07:17 99 H 12/19/23 07:03 97 H 18 95 Room Air 12/19/23 02:42 36.5 C 106 H 20 121/62 95 Room Air Laboratory Results Laboratory Results WBC 13.03 K/ul (4.8-10.8) H 12/17/23 07:10 RBC 4.87 M/uL (4.20-5.40) 12/17/23 07:10 Hgb 13.5 g/dl (12.0-16.0) 12/17/23 07:10 Hct 41.3 % (37.0-47.0) 12/17/23 07:10 MCV 84.8 fL (80.0-100.0) 12/17/23 07:10 MCH 27.7 pg (25.0-34.0) 12/17/23 07:10 MCHC 32.7 g/dL (32.0-36.0) 12/17/23 07:10 RDW Std Deviation 50.3 fL (36.4-46.3) H 12/17/23 07:10 RDW Coeff of Malick 16.5 % (11.5-14.5) H 12/17/23 07:10 Plt Count 214 K/uL (130-400) 12/17/23 07:10 MPV 10.4 fL (9.4-12.4) 12/17/23 07:10 Immature Gran % (Auto) 1.3 % 12/14/23 12:15 Neut % (Auto) 88.5 % 12/14/23 12:15 Lymph % (Auto) 7.8 % 12/14/23 12:15 Kane % (Auto) 2.3 % 12/14/23 12:15 Eos % (Auto) 0.0 % 12/14/23 12:15 Baso % (Auto) 0.1 % 12/14/23 12:15 Neut # (Auto) 16.15 K/uL (1.40-6.50) H 12/14/23 12:15 Lymph # (Auto) 1.43 K/uL (1.20-3.40) 12/14/23 12:15 Kane # (Auto) 0.42 K/uL (0.11-0.59) 12/14/23 12:15 Eos # (Auto) 0.00 K/uL (0.00-0.50) 12/14/23 12:15 Baso # (Auto) 0.02 K/uL (0.00-0.20) 12/14/23 12:15 Immature Gran # (Auto) 0.24 K/uL (0.01-0.20) H 12/14/23 12:15 Absolute Nucleated RBC 0.02 K/uL (0.00-0.12) 12/14/23 12:15 Nucleated RBC % (auto) 0.1 % 12/14/23 12:15 PT 10.5 Seconds (9.0-12.0) 12/13/23 17:52 INR 1.0 (0.9-1.1) 12/13/23 17:52 APTT 21 Seconds (21-31) 12/13/23 17:52 PTT Ratio 0.8 12/13/23 17:52 VBG pH 7.45 (7.36-7.41) H 12/15/23 08:02 VBG pCO2 64 mmHg (38-50) H 12/15/23 08:02 VBG pO2 21 mmHg 12/15/23 08:02 VBG HCO3 45 mmol/L 12/15/23 08:02 VBG O2 Saturation < 60.0 % 12/15/23 08:02 VBG Base Excess 16.4 mEq/L 12/15/23 08:02 Barometric Pressure Cancelled 12/15/23 07:33 Sodium 138 mmol/L (136-145) 12/19/23 05:31 Potassium 3.6 mmol/L (3.5-5.1) D 12/19/23 05:31 Chloride 97 mmol/L (98-107) L 12/19/23 05:31 Carbon Dioxide 35 mmol/L (21-32) H 12/19/23 05:31 Anion Gap 6 (3-11) 12/19/23 05:31 BUN 19 mg/dl (6-23) 12/19/23 05:31 Creatinine 0.60 mg/dl (0.6-1.2) 12/19/23 05:31 Est Cr Clr Drug Dosing 106.1 ml/min 12/19/23 05:31 Est GFR ( Amer) 113.2 ml/min 12/19/23 05:31 Est GFR (Non-Af Amer) 97.7 ml/min 12/19/23 05:31 BUN/Creatinine Ratio 31.7 (10-20) H 12/19/23 05:31 Glucose 60 mg/dl (70-99(Fasting)) L 12/19/23 05:31 POC Glucose 61 mg/dl (70-99) L* 12/19/23 12:17 Uric Acid 8.0 mg/dl (2.6-7.2) H 12/16/23 05:52 Calcium 8.6 mg/dl (8.6-10.3) 12/19/23 05:31 Magnesium 2.5 mg/dl (1.7-2.4) H 12/17/23 07:10 Troponin I High Sens 63.1 pg/ml (0-14) H* 12/13/23 17:52 C-Reactive Protein 0.65 mg/dl (0-0.5) H 12/16/23 05:52 B-Natriuretic Peptide 112 pg/ml (0-100) H 12/16/23 05:53 Procalcitonin 0.04 ng/ml (0-0.5) 12/14/23 12:15 Adenovirus (PCR) Not Detected (NotDetected) 12/15/23 22:30 B. pertussis DNA (PCR) Not Detected (NotDetected) 12/15/23 22:30 B.parapertussis DNA PCR Not Detected (NotDetected) 12/15/23 22:30 C. pneumoniae DNA (PCR) Not Detected (NotDetected) 12/15/23 22:30 Coronavirus OC43 (PCR) Not Detected (NotDetected) 12/15/23 22:30 Coronavirus HKU1 (PCR) Not Detected (NotDetected) 12/15/23 22:30 Coronavirus 229E (PCR) Not Detected (NotDetected) 12/15/23 22:30 SARS-CoV-2 (PCR) Not Detected (NotDetected) 12/15/23 22:30 Coronavirus NL63 (PCR) Not Detected (NotDetected) 12/15/23 22:30 Human Metapneumovir PCR Not Detected (NotDetected) 12/15/23 22:30 Influenza Type A (PCR) Not Detected (NotDetected) 12/15/23 22:30 Influenza Type B (PCR) Not Detected (NotDetected) 12/15/23 22:30 M. pneumoniae (PCR) Not Detected (NotDetected) 12/15/23 22:30 Parainfluenza 1 (PCR) Not Detected (NotDetected) 12/15/23 22:30 Parainfluenza 2 (PCR) Not Detected (NotDetected) 12/15/23 22:30 Parainfluenza 3 (PCR) Not Detected (NotDetected) 12/15/23 22:30 Parainfluenza 4 (PCR) Not Detected (NotDetected) 12/15/23 22:30 RSV (PCR) Not Detected (NotDetected) 12/15/23 22:30 Entero/Rhino (PCR) Not Detected (NotDetected) 12/15/23 22:30 SARS-CoV-2, RNA, NAAT NEGATIVE (NEGATIVE) 12/13/23 Unknown Impressions Chest X-Ray 12/14/23 11:12 XR chest 2V PA/lateral CLINICAL HISTORY: copd exacerbation TECHNIQUE: 2 views of the chest were obtained. Comparison: Comparison is made to chest radiograph 12/13/2023 FINDINGS: Exam is limited by underpenetration. The cardiomediastinal silhouette is normal. The lungs are clear. No evidence of pleural effusion or pneumothorax. IMPRESSION: No acute chest disease. ACT 112: Negative or not required by law. Electronically signed by: Raheem Macias M.D. 12/14/2023 1:35 PM Knee X-Ray 12/16/23 01:10 XR knee RT 1 or 2V routine CLINICAL HISTORY: knee pain TECHNIQUE: 2 views of the right knee were obtained. Comparison: Comparison is made to knee radiographs 10/27/2023 FINDINGS: There is no evidence of an acute fracture. Joint spaces are well-preserved. No joint effusion is seen. A fabella is incidentally seen. IMPRESSION: No evidence of acute osseous injury. ACT 112: Negative or not required by law. Electronically signed by: Raheem Macias M.D. 12/16/2023 7:26 PM PG Care Time/CCT Total # of Minutes Spent Total Time Spent with Patient: Total time spent is greater than 50% in coordination of care (as documented) at patient's floor/unit and/or counseling patient: Coding Level of Care Code 92662 IN/OBS CONSULT LVL 5,80M Diagnoses Hypokalemia E87.6
--- NOTE | 2023-12-19 14:53 | Pharmacy Report ---
Pharmacy Glycemic Short Note 2 - Date of Service December 19, 2023 - Glycemic Short BSG Results (Last 24 hours): 12/18/23 12/18/23 12/19/23 17:19 20:09 05:31 Glucose 60 L POC Glucose 322 H* 328 H* 12/19/23 12/19/23 12/19/23 08:21 12:16 12:17 Glucose POC Glucose 88 59 L* 61 L* 12/19/23 12/19/23 12/19/23 12:38 12:41 12:50 Glucose POC Glucose 50 L* 180 H 235 H 12/19/23 13:16 Glucose 91 POC Glucose OUTPATIENT ANTIDIABETIC REGIMEN: * Insulin glargine 68 units SC qAM * Insulin aspart 10 units SC TIDM + SSI * Ozempic 0.25 mg SC weekly HbA1c: 9.8% (10/16/23) ASSESSMENT: * LL is a 63 year old female admitted on 12/12 w/ COPD exacerbation * Currently ordered methylprednisolone 40 mg IV BID and ceftriaxone/azithromycin * Patient is known to pharmacy glycemic service for past hyperglycemia, usually in context of steroid administration * PMH includes multiple myeloma (s/p transplant 2014), COPD, CHF * Blood sugars did decline significantly from breakfast to lunch today (298 -> 85 mg/dL) * Will increase upper end of goal range to decrease amount of correctional insulin given 12/15/23 * Patient received total 105 units of insulin yesterday: 60 units basal + 20 units bolus * BSGs yesterday were 862-13-357-110 mg/dl. Fasting BSG today was 103 mg/dl. * Basal insulin continued the same- 40 units in AM and scale at HS based on BSG. * Spoke with nurse today. Patient did not receive adequate insulin coverage for carbs eaten at breakfast today since she returned her meal tray for another meal. Nurse gave only 4 units of insulin based off the meal that was in front of her which was apparently returned. Patient should have received 11 units. This seems to happen often per nurse. Pre-lunch BSG was therefore elevated at 278 mg/dl. 12/17/23 * Blood sugars tightly controlled yesterday w/ last dose of methylprednisolone * Received 80 units of insulin (50/50 basal/bolus split) * Steroids changed to prednisone 40 mg PO daily starting today * Will loosen carb ratio slightly given change in steroids - if high today will tighten again tomorrow 12/18/23 * Blood sugars elevated yesterday so will change from Lantus to combination of NPH and Lantus to better cover prednisone * Lantus scale this evening w/ no change to Novolog 12/19/23 * BSGs yesterday were [phone] mg/dl. Patient received 40 units NPH, 20 units Lantus and 56 units bolus Novolog. * Fasting BSG today was low at 60 mg/dl. To obtain better BSG control at dinner and HS, 50 units of NPH was given with Prednisone this morning. However, pre- lunch BSG trended down to 59 mg/dl. * Basal Lantus dose at HS reduced to 15 units for tonight. Will re-assess basal dosing tomorrow morning. PLAN FOR INPATIENT GLYCEMIC CONTROL: * Basal insulin * NPH 50 units SC w/ prednisone today * Lantus 15 units SC HS * Reassess basal in AM * Bolus insulin * NovoLog per scale ACHS or Q6hrs while NPO * Goal Range: Low 110 mg/dL - High 160 mg/dL * Correction Factor: 20 mg/dL/unit * Nutritional / Prandial insulin per carb ratio of 1 unit per 5 grams CHO consumed
--- NOTE | 2023-12-19 16:14 | Hospitalist Progress Note ---
Date of Service December 19, 2023 Assessment & Plan (1) COPD exacerbation: Plan: Acute on chronic COPD exacerbation mild decline CXR on 12/13 without acute finding. Slightly congested appearing, received Lasix x 1 in the ER. bronchitis treatment with Rocephin/azithromycin - course of azithromycin finished on 12/16 - course of Rocephin to be finished on 12/19 - 2 step test ordered to be completed to reassess patient's oxygen needs: completed on 12/17 no need for oxygen. - Continue home inhaler/equivalent duo nebs as needed - Prednisone 40 mg p.o. daily - ambulate as tolerated (2) Acute hypokalemia: Plan: - potassium level 2.4 on 12/14, was given 4 doses of 10 mEq potassium IV - potassium level 2.8 on 12/15, 3 doses of 10 mEq potassium IV and 30 mEq meq po ordered - potassium level 2.9 on 12/16, 4 doses of 10 mEq potassium IV and 30 mEq meq p.o. ordered - magnesium slightly elevated at 2.5 on 12/16 - metolazone and bumex discontinued, likely contributing to continued hypokal emia - patient will remain on med tele to monitor for arrhythmias - Potassium remains low on 12/17. - nephrology recs appreciated, no evidence of RTA, did recommend resuming bumex and adding spironolactone, discontinue metolozone at this time (3) Bilateral knee pain: Plan: - Likely due to acute gout flare - improving - patient had bilateral knee pain on 12/15, 12/16 has subsided to right knee pain - uric acid on 12/15 was 8.0 - Patient was given colchicine 1.2 mg with an additional 0.6 mg on 12/15 for an acute flare - Will continue colchicine 0.6 mg twice daily for the next 2 days (until 12/17) based off patient's current creatinine clearance at 50.5 - continue with allopurinol (4) Heart failure with preserved ejection fraction: Plan: HFpEF, mild acute on chronic exacerbation lasix given in ER patient is complaining of lower leg edema with signs of venous stasis Bumex and metolazone held due to continuing hypokalemia No MONICA on admission, creatinine 0.86 on 12/16 (5) DM II (diabetes mellitus, type II), controlled: Plan: Type II DM History of hypoglycemic reactions with steroids. Also sometimes gets sweets from any machines during prior admissions Basal bolus insulin while admitted Pharmacy glycemic consult due to history of labile requirements, and steroid use Plan History of DVT/PE Patient is on 1.5 mpk Lovenox at home, converted to 1 mg per kilogram of Lovenox twice daily while inpatient Chronic stable issues AYAN: Continue Celexa/Seroquel/Xanax Multiple myeloma: S/p transplant 2014. Needs outpatient oncology follow-up, no acute inpatient change in management Obesity hypoventilation: PPV nightly. Use Trelegy at home DVT prophylaxis: Lovenox as noted CODE STATUS: Full code Admission and Anticipated Discharge Date Admission Date: December 14, 2023 Subjective Pt was very frustrated with her low potassium. She states she takes so much potassium at home yet it is still very low. Physical Exam Physical Exam: Gen: pt intermittently drowsy HEENT: NC/AT, MMM Lungs: no wheezing noted CVS: s1s2nl RRR Abd: soft, NT, nl BS Ext: + edema Psych: pleasant, communicating appropriately Results & Data Results & Data Vital Signs (Past 12 Hours) Vital Signs Temp Pulse Pulse Resp BP Pulse Ox O2 Del Method 12/19/23 15:34 92 H 18 96 Room Air 12/19/23 15:29 36.8 C 106 H 22 136/85 94 Room Air 12/19/23 11:58 36.8 C 101 H 22 133/79 96 Room Air 12/19/23 08:02 36.9 C 101 H 20 105/73 94 Room Air 12/19/23 08:00 Room Air 12/19/23 07:17 99 H 12/19/23 07:03 97 H 18 95 Room Air PG Care Time/CCT Total # of Minutes Spent Total Time Spent with Patient: Total time spent is greater than 50% in coordination of care (as documented) at patient's floor/unit and/or counseling patient: Coding Level of Care Code 66096 SUB INP/OBS CARE 2/35MIN Diagnoses COPD exacerbation J44.1 Acute hypokalemia E87.6 Bilateral knee pain M25.561; M25.562 Chronic heart failure with preserved ejection fraction I50.32 Heart failure chronicity: chronic DM II (diabetes mellitus, type II), controlled E11.9 (4) Heart failure with preserved ejection fraction Heart failure chronicity: chronic Qualified Code(s): I50.32 - Chronic diastolic (congestive) heart failure
[2023-12-19] MEDS: SPIRONOLACTONE 25 MG TAB PO SCH (17:39)
[2023-12-19] MEDS: LANTUS PER UNIT CHARGE SC SCH (21:12)
[2023-12-20 06:10] LABS: Hematocrit (blood only) 37.5 % (37.0-47.0); Hemoglobin 11.5 g/dl (12.0-16.0); Mean Corpuscular Hemoglobin 27.1 pg (25.0-34.0); Mean Corpuscular Hgb Conc 30.7 g/dL (32.0-36.0); Mean Corpuscular Volume 88.4 fL (80.0-100.0); Mean Platelet Volume 9.5 fL (9.4-12.4); Platelet Count 207 K/uL (130-400); RDW Coefficient of Variation 16.7 % (11.5-14.5); RDW Standard Deviation 53.6 fL (36.4-46.3); Red Blood Count 4.24 M/uL (4.20-5.40); White Blood Count 13.79 K/ul (4.8-10.8)
[2023-12-20 06:23] LABS: Creatinine Clr Calc Pharmacy 132.7 ml/min; Est GFR (African American) 121.8 ml/min; Est GFR (Non-African American) 105.1 ml/min
--- NOTE | 2023-12-20 08:33 | Hospitalist Progress Note ---
Date of Service December 20, 2023 Assessment & Plan (1) COPD exacerbation: (2) Acute hypokalemia: (3) Bilateral knee pain: (4) Heart failure with preserved ejection fraction: (5) DM II (diabetes mellitus, type II), controlled: Plan #Acute on chronic COPD exacerbation mild decline CXR on 12/13 without acute finding. Slightly congested appearing, received Lasix x 1 in the ER. bronchitis treatment with Rocephin/azithromycin - course of azithromycin finished on 12/16 - course of Rocephin to be finished on 12/19 - 2 step test ordered to be completed to reassess patient's oxygen needs: completed on 12/17 no need for oxygen. - Continue home inhaler/equivalent duo nebs as needed - Prednisone 40 mg p.o. daily - ambulate as tolerated #Acute hypokalemia: - potassium level 2.4 on 12/14, was given 4 doses of 10 mEq potassium IV - potassium level 2.8 on 12/15, 3 doses of 10 mEq potassium IV and 30 mEq meq po ordered - potassium level 2.9 on 12/16, 4 doses of 10 mEq potassium IV and 30 mEq meq p.o. ordered - magnesium slightly elevated at 2.5 on 12/16 - metolazone discontinued, likely contributing to continued hypokalemia - patient will remain on med tele to monitor for arrhythmias - Potassium stable today - nephrology recs appreciated, no evidence of RTA, did recommend resuming bumex and adding spironolactone, discontinue metolozone at this time #Bilateral knee pain: - Likely due to acute gout flare - improving - patient had bilateral knee pain on 12/15, 12/16 has subsided to right knee pain - uric acid on 12/15 was 8.0 - Patient was given colchicine 1.2 mg with an additional 0.6 mg on 12/15 for an acute flare - Will continue colchicine 0.6 mg twice daily for the next 2 days (until 12/17) based off patient's current creatinine clearance at 50.5 - continue with allopurinol #Heart failure with preserved ejection fraction: lasix given in ER patient is complaining of lower leg edema with signs of venous stasis - metolazone discontinued due to hypokalemia - cont spironolactone - bumex 2mg BID changed to IV given persistent edema No MONICA on admission, creatinine 0.86 on 12/16 #DM II (diabetes mellitus, type II) History of hypoglycemic reactions with steroids. Also sometimes gets sweets from any machines during prior admissions Basal bolus insulin while admitted Pharmacy glycemic consult due to history of labile requirements, and steroid use #History of DVT/PE Patient is on 1.5 mpk Lovenox at home, converted to 1 mg per kilogram of Lovenox twice daily while inpatient - will hold lovenox given worsening bruising - c/s heme / onc to further assist in management #Chronic stable issues AYAN: Continue Celexa/Seroquel/Xanax Multiple myeloma: S/p transplant 2014. Needs outpatient oncology follow-up, no acute inpatient change in management Obesity hypoventilation: PPV nightly. Use Trelegy at home CODE STATUS: Full code Admission and Anticipated Discharge Date Admission Date: December 14, 2023 Subjective Today, she is frustrated about her increased bruising in the setting of lovenox Physical Exam Physical Exam: Gen: pt intermittently drowsy HEENT: NC/AT, MMM Lungs: no wheezing noted CVS: s1s2nl RRR Abd: soft, NT, nl BS Ext: + edema Psych: pleasant, communicating appropriately Skin: multiple areas of large bruising Results & Data Results & Data Vital Signs (Past 12 Hours) Vital Signs Temp Pulse Pulse Resp BP BP Pulse Ox 12/20/23 07:50 96 H 12/20/23 07:43 36.5 C 99 H 20 137/76 93 12/20/23 07:15 80 18 97 12/20/23 04:30 36.9 C 94 H 20 110/69 94 12/20/23 04:11 101 H 12 96 12/20/23 01:15 106 H 13 96 12/19/23 23:31 37 C 102 H 20 100/68 94 12/19/23 22:26 105 H 18 96 12/19/23 22:04 103 H 12/19/23 21:10 O2 Del Method O2 Flow Rate 12/20/23 07:50 12/20/23 07:43 Room Air 12/20/23 07:15 Room Air 12/20/23 04:30 Room Air 12/20/23 04:11 2 12/20/23 01:15 2 12/19/23 23:31 Room Air 12/19/23 22:26 Room Air 12/19/23 22:04 12/19/23 21:10 Room Air PG Care Time/CCT Total # of Minutes Spent Total Time Spent with Patient: Total time spent is greater than 50% in coordination of care (as documented) at patient's floor/unit and/or counseling patient: Coding Level of Care Code 91482 SUB INP/OBS CARE 2/35MIN Diagnoses COPD exacerbation J44.1 Acute hypokalemia E87.6 Bilateral knee pain M25.561; M25.562 Chronic heart failure with preserved ejection fraction I50.32 Heart failure chronicity: chronic DM II (diabetes mellitus, type II), controlled E11.9 (4) Heart failure with preserved ejection fraction Heart failure chronicity: chronic Qualified Code(s): I50.32 - Chronic diastolic (congestive) heart failure
[2023-12-20 09:21] LABS: BUN Creatinine Ratio 31.3 (10-20); Calcium 8.5 mg/dl (8.6-10.3); Potassium 3.7 mmol/L (3.5-5.1)
[2023-12-20] MEDS: NovoLIN-N (NPH) PER UNIT CHARGE SQ SCH (09:46)
[2023-12-20] MEDS: SOD PHOSPHATE/SOD BIPHOSPHATE ENEMA 132 ML BTL PR PRN (12:37)
[2023-12-20] MEDS: POTASSIUM CHLORIDE CRTAB 20 MEQ TABCR PO ONE (12:38)
[2023-12-20] MEDS: BUMETANIDE 2 MG in SYRINGE 0 ML IV SCH (17:50)
[2023-12-21] MEDS: INSULIN ASPART PER UNIT CHARGE SC SCH (01:58)
[2023-12-21 08:01] LABS: Basophils # (auto) 0.01 K/uL (0.00-0.20); Basophils % (auto) 0.1 %; Eosinophils # (auto) 0.17 K/uL (0.00-0.50); Eosinophils % (auto) 1.2 %; Hematocrit (blood only) 37.5 % (37.0-47.0); Hemoglobin 11.9 g/dl (12.0-16.0); Immature Granulocytes # (auto) 0.18 K/uL (0.01-0.20); Immature Granulocytes % (auto) 1.3 %; Lymphocytes # (auto) 2.24 K/uL (1.20-3.40); Lymphocytes % (auto) 16.3 %; Mean Corpuscular Hemoglobin 27.7 pg (25.0-34.0); Mean Corpuscular Hgb Conc 31.7 g/dL (32.0-36.0); Mean Corpuscular Volume 87.2 fL (80.0-100.0); Mean Platelet Volume 9.9 fL (9.4-12.4); Monocytes # (auto) 0.73 K/uL (0.11-0.59); Monocytes % (auto) 5.3 %; Neutrophils % (auto) 75.8 %; Platelet Count 222 K/uL (130-400); RDW Coefficient of Variation 16.5 % (11.5-14.5); RDW Standard Deviation 52.5 fL (36.4-46.3); White Blood Count 13.73 K/ul (4.8-10.8)
[2023-12-21 08:10] LABS: Partial Thromboplastin Ratio 0.9; Partial Thromboplastin Time 23 Seconds (21-31); Prothrombin Time 10.6 Seconds (9.0-12.0)
--- NOTE | 2023-12-21 08:16 | Oncology Consultation ---
Date of Consultation December 21, 2023 Assessment & Plan (1) History of pulmonary embolism: (2) COPD exacerbation: (3) Multiple myeloma: Plan -Labs including PT/INR and PTT within normal limits. No evidence at this time for inhibitor. Platelet count WNL. - Suspect that increased bruising due to increased dose of Lovenox. Recommend checking anti-factor Xa activity and if below 1, can resume home dose of lovenox 1.5mg/Kg SC daily. She will continue follow up with Dr Najera at 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 Hematology will sign off at this time. Please feel free to call with any further questions. History of Present Illness Reason for Consultation: Bruising, H/O VTE Attending Physician: Mireya Cárdenas MD History of Present Illness 63-year-old female with history of ovarian cancer about 32 years ago for which she is status post TLH/BSO, adjuvant chemotherapy treatment. Also has a history of multiple myeloma for which she is status post stem cell transplant in 2014 and history of unprovoked VTE in 2020. She follows with Dr Najera of hem atology/oncology team at [facility] in [facility]. Was admitted for acute exacerbation of COPD. During admission, dose of Lovenox was increased from 1.5 mg/kg SC once daily to 1 mg/kg twice daily. Hematology was consulted for severe bruising. She states that she noticed bruising shortly after dose of Lovenox was increased. Denies ever being on a DOAC or warfarin. Allergies Allergy/AdvReac Type Severity Reaction Status Date / Time codeine Allergy Severe Anaphylaxis Verified 11/14/23 01:37 Iodinated Contrast Media Allergy Severe Anaphylaxis Verified 11/14/23 01:37 shellfish derived Allergy Severe Anaphylaxis Verified 11/14/23 01:37 tramadol Allergy Intermediate ITCHINESS Verified 11/14/23 01:37 iohexol Allergy Unknown CAN'T Verified 11/14/23 01:37 REMEMBER diphenhydramine AdvReac Severe Anxiety Verified 11/14/23 01:37 [From Benadryl] promethazine AdvReac Intermediate Anxiety Verified 11/14/23 01:37 Home Medications Medication Instructions Recorded Confirmed Type buprenorphine 8 mg-naloxone 2 mg 0.5 film sublingual BID 05/14/22 12/13/23 History sublingual film nystatin 100,000 unit/gram topical 1 applic topical BID PRN UNDER 05/14/22 12/13/23 History powder BREASTS NEEDED. ondansetron HCl 4 mg tablet 4 mg PO Q8H PRN NAUSEA/VOMITING 05/14/22 12/13/23 History quetiapine 200 mg tablet 200 mg PO HS 05/14/22 12/13/23 History levalbuterol HCl 1.25 mg/3 mL 1.25 mg inhalation TID PRN 01/16/23 12/13/23 Hi story solution for nebulization Shortness Of Breath Or Wheezing enoxaparin 150 mg/mL subcutaneous 150 mg subcut UD 05/07/23 12/13/23 History syringe alprazolam 0.5 mg tablet 0.5 mg PO TID #14 tabs 08/02/23 12/13/23 Rx albuterol sulfate 90 mcg/actuation 2 puff inhalation UD PRN Shortness 08/30/23 12/13/23 History aerosol inhaler Of Breath Or Wheezing guaifenesin 600 mg tablet, 600 mg PO Q12 Congestion 09/11/23 12/13/23 History extended release 12 hr (Mucinex) fluticasone propionate 50 1 spray intranasal BID nasal 09/15/23 12/13/23 Rx mcg/actuation nasal congestion #0 mL spray,suspension (Flonase Allergy Relief) fluticasone fur. 200 mcg-umeclid 1 ea inhalation QAM #60 ea 09/16/23 12/13/23 Rx 62.5 mcg-vilant 25 mcg inhalat.powder (Trelegy Ellipta) levalbuterol tartrate 45 2 puff inhalation Q4 PRN WHEEZE 09/16/23 12/13/23 Rx mcg/actuation aerosol inhaler #15 grams bumetanide 2 mg tablet 2 mg PO BID #60 tabs 09/29/23 12/13/23 Rx insulin glargine 100 unit/mL (3 68 unit (0.68 mL) subcut QAM #15 mL 10/17/23 12/13/23 Rx mL) subcutaneous pen ipratropium bromide 0.02 % 3 ml continuous nebulization QID 10/17/23 12/13/23 Rx solution for inhalation PRN shortness of breath #75 mL calcium polycarbophil 625 mg 625 mg PO QAM #30 tabs 10/30/23 12/13/23 Rx tablet (Fiber (calcium polycarbophil)) colchicine 0.6 mg tablet (Colcrys) 0.6 mg PO BID PRN gout attacks #60 10/30/23 12/13/23 Rx tabs ibuprofen 200 mg tablet 600 mg (3 x 200 mg) PO TID PRN 10/30/23 12/13/23 Rx pain #30 tabs Ozempic Inj 0.25 mg INJ WK 11/07/23 12/13/23 History insulin aspart U-100 100 unit/mL 0 unit subcut TIDM 11/07/23 12/13/23 History (3 mL) subcutaneous pen (Novolog FlexPen U-100 Insulin aspart) metolazone 2.5 mg tablet 2.5 mg PO MoWeFr@0900 #30 tabs 11/23/23 12/13/23 Rx potassium chloride 20 mEq 40 meq (2 x 20 mEq) PO QID #30 tabs 11/23/23 12/13/23 Rx tablet,extended release(part/cryst) allopurinol 100 mg tablet 300 mg PO QAM 12/13/23 12/13/23 History citalopram 10 mg tablet 10 mg PO DAILY 12/13/23 12/13/23 History Patient History Medical History Acute exacerbation of chronic obstructive pulmonary disease Acute heart failure with preserved ejection fraction (HFpEF) Acute exacerbation of chronic obstructive pulmonary disease Tobacco abuse Opiate dependence Dyspnea Asthma Surgical History No pertinent past surgical history Family History Sister Asthma Social History Smoking Status: Current every day smoker Tobacco Type: Cigarettes Cigarettes Per Day: 1 cigarette per day; Second Hand Exposure: No; Do You Dip or Chew Tobacco: No; Hx Alcohol Use: No Hx Substance Use: No Preferred Language: Mozambican Communication Ability: Effective 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 Beliefs That Will Affect Care: None Current Living Situation: Family Current Living Situation Comment: lives with sister temporarily Feels Safe at Home: Yes Assistive Devices: CPAP and Oxygen - Continuous Results & Data Vital Signs (Past 12 Hours) Vital Signs Temp Pulse Pulse Resp BP BP Pulse Ox 12/21/23 07:15 36.8 C 90 18 123/76 92 12/21/23 07:15 97 H 12/21/23 00:00 99 H 96 12/20/23 23:55 36.4 C L 99 H 16 146/99 H 96 12/20/23 21:34 97 H 12/20/23 21:00 12/20/23 20:50 O2 Del Method O2 Flow Rate 12/21/23 07:15 Room Air 12/21/23 07:15 12/21/23 00:00 Nasal Cannula, CPAP 2 12/20/23 23:55 Room Air 12/20/23 21:34 12/20/23 21:00 2 12/20/23 20:50 Room Air (3) Multiple myeloma Multiple myeloma remission status: unspecified Qualified Code(s): C90.00 - Multiple myeloma not having achieved remission
[2023-12-21 08:27] LABS: BUN Creatinine Ratio 33.3 (10-20); Calcium 8.8 mg/dl (8.6-10.3); Creatinine Clr Calc Pharmacy 119.1 ml/min; Est GFR (African American) 117.2 ml/min; Est GFR (Non-African American) 101.1 ml/min; Magnesium 1.8 mg/dl (1.7-2.4); Phosphorus 2.6 mg/dl (2.5-4.9); Potassium 3.6 mmol/L (3.5-5.1)
--- NOTE | 2023-12-21 08:39 | Hospitalist Progress Note ---
Date of Service December 21, 2023 Assessment & Plan (1) COPD exacerbation: (2) Acute hypokalemia: (3) Bilateral knee pain: (4) Heart failure with preserved ejection fraction: (5) DM II (diabetes mellitus, type II), controlled: Plan #Acute on chronic COPD exacerbation mild decline CXR on 12/13 without acute finding. Slightly congested appearing, received Lasix x 1 in the ER. bronchitis treatment with Rocephin/azithromycin - course of azithromycin finished on 12/16 - course of Rocephin to be finished on 12/19 - 2 step test ordered to be completed to reassess patient's oxygen needs: completed on 12/17 no need for oxygen. - Continue home inhaler/equivalent duo nebs as needed - Prednisone 40 mg p.o. daily - ambulate as tolerated #Acute hypokalemia: - pt takes KCl 40meq QID at home - metolazone discontinued, likely contributing to continued hypokalemia - patient will remain on med tele to monitor for arrhythmias - nephrology recs appreciated, no evidence of RTA, did recommend resuming bumex and adding spironolactone, discontinue metolozone at this time - potassium 3.6 this AM, will initiate daily KCl 40meq, adjust as necessary - cont spironolactone #Bilateral knee pain: - Likely due to acute gout flare - improving - patient had bilateral knee pain on 12/15, 12/16 has subsided to right knee pain - uric acid on 12/15 was 8.0 - Patient was given colchicine 1.2 mg with an additional 0.6 mg on 12/15 for an acute flare - Will continue colchicine 0.6 mg twice daily for the next 2 days (until 12/17) based off patient's current creatinine clearance at 50.5 - continue with allopurinol #Heart failure with preserved ejection fraction: lasix given in ER patient is complaining of lower leg edema with signs of venous stasis - metolazone discontinued due to hypokalemia - cont spironolactone - bumex 2mg BID changed to IV given persistent edema , monitor potassium (goal 4) / magnesium (goal 2) closely - 2L fluid restriction No MONICA on admission, creatinine 0.86 on 12/16 #DM II (diabetes mellitus, type II) History of hypoglycemic reactions with steroids. Also sometimes gets sweets from any machines during prior admissions Basal bolus insulin while admitted Pharmacy glycemic consult due to history of labile requirements, and steroid use #History of DVT/PE Patient is on 1.5 mpk Lovenox at home, converted to 1 mg per kilogram of Lovenox twice daily while inpatient - will hold lovenox given worsening bruising - hematology recs appreciated, anti-xa ordered, if <1 will resume home lovenox dose #Chronic stable issues AYAN: Continue Celexa/Seroquel/Xanax Multiple myeloma: S/p transplant 2014. Needs outpatient oncology follow-up, n o acute inpatient change in management Obesity hypoventilation: PPV nightly. Use Trelegy at home CODE STATUS: Full code Admission and Anticipated Discharge Date Admission Date: December 14, 2023 Subjective Today, she is frustrated about her increased bruising in the setting of lovenox Physical Exam Physical Exam: Gen: pt intermittently drowsy HEENT: NC/AT, MMM Lungs: no wheezing noted CVS: s1s2nl RRR Abd: soft, NT, nl BS Ext: + edema, improving Psych: pleasant, communicating appropriately Skin: multiple areas of large bruising Results & Data Results & Data Vital Signs (Past 12 Hours) Vital Signs Temp Pulse Pulse Resp BP BP Pulse Ox 12/21/23 07:15 36.8 C 90 18 123/76 92 12/21/23 07:15 97 H 12/21/23 00:00 99 H 96 12/20/23 23:55 36.4 C L 99 H 16 146/99 H 96 12/20/23 21:34 97 H 12/20/23 21:00 12/20/23 20:50 O2 Del Method O2 Flow Rate 12/21/23 07:15 Room Air 12/21/23 07:15 12/21/23 00:00 Nasal Cannula, CPAP 2 12/20/23 23:55 Room Air 12/20/23 21:34 12/20/23 21:00 2 12/20/23 20:50 Room Air PG Care Time/CCT Total # of Minutes Spent Total Time Spent with Patient: Total time spent is greater than 50% in coordination of care (as documented) at patient's floor/unit and/or counseling patient: Coding Level of Care Code 53583 SUB INP/OBS CARE 2/35MIN Diagnoses COPD exacerbation J44.1 Acute hypokalemia E87.6 Bilateral knee pain M25.561; M25.562 Chronic heart failure with preserved ejection fraction I50.32 Heart failure chronicity: chronic DM II (diabetes mellitus, type II), controlled E11.9 (4) Heart failure with preserved ejection fraction Heart failure chronicity: chronic Qualified Code(s): I50.32 - Chronic diastolic (congestive) heart failure
[2023-12-21] MEDS: MAGNESIUM OXIDE 400 MG TAB PO ONE (09:10)
[2023-12-21] MEDS: POTASSIUM CHLORIDE CRTAB 20 MEQ TABCR PO SCH (09:11)
[2023-12-21] MEDS: INSULIN HUMAN NPH SC SCH (09:11)
[2023-12-21 10:53] LABS: ANTI-Xa, UFH(UnfractionatedHep 0.32 IU/ml (0.3-0.7)
--- NOTE | 2023-12-21 12:28 | Pharmacy Report ---
Pharmacy Glycemic Short Note 2 - Date of Service December 21, 2023 - Glycemic Short BSG Results (Last 24 hours): 12/20/23 12/20/23 12/21/23 17:14 20:23 01:52 Glucose POC Glucose 214 H 358 H* 160 H 12/21/23 12/21/23 12/21/23 07:42 08:22 12:11 Glucose 114 H POC Glucose 111 H 141 H OUTPATIENT ANTIDIABETIC REGIMEN: * Insulin glargine 68 units SC qAM * Insulin aspart 10 units SC TIDM + SSI * Ozempic 0.25 mg SC weekly HbA1c: 9.8% (10/16/23) ASSESSMENT: * LL is a 63 year old female admitted on 12/12 w/ COPD exacerbation * Currently ordered methylprednisolone 40 mg IV BID and ceftriaxone/azithromycin * Patient is known to pharmacy glycemic service for past hyperglycemia, usually in context of steroid administration * PMH includes multiple myeloma (s/p transplant 2014), COPD, CHF * Blood sugars did decline significantly from breakfast to lunch today (298 -> 85 mg/dL) * Will increase upper end of goal range to decrease amount of correctional insulin given 12/15/23 * Patient received total 105 units of insulin yesterday: 60 units basal + 20 units bolus * BSGs yesterday were [phone] mg/dl. Fasting BSG today was 103 mg/dl. * Basal insulin continued the same- 40 units in AM and scale at HS based on BSG. * Spoke with nurse today. Patient did not receive adequate insulin coverage for carbs eaten at breakfast today since she returned her meal tray for another meal. Nurse gave only 4 units of insulin based off the meal that was in front of her which was apparently returned. Patient should have received 11 units. This seems to happen often per nurse. Pre-lunch BSG was therefore elevated at 278 mg/dl. 12/17/23 * Blood sugars tightly controlled yesterday w/ last dose of methylprednisolone * Received 80 units of insulin (50/50 basal/bolus split) * Steroids changed to prednisone 40 mg PO daily starting today * Will loosen carb ratio slightly given change in steroids - if high today will tighten again tomorrow 12/18/23 * Blood sugars elevated yesterday so will change from Lantus to combination of NPH and Lantus to better cover prednisone * Lantus scale this evening w/ no change to Novolog 12/19/23 * BSGs yesterday were [phone] mg/dl. Patient received 40 units NPH, 20 units Lantus and 56 units bolus Novolog. * Fasting BSG today was low at 60 mg/dl. To obtain better BSG control at dinner and HS, 50 units of NPH was given with Prednisone this morning. However, pre- lunch BSG trended down to 59 mg/dl. * Basal Lantus dose at HS reduced to 15 units for tonight. Will re-assess basal dosing tomorrow morning. 12/21/23 * Patient received total of 110 units of insulin yesterday, of which 50 units were NPH and 15 units basal * Fasting BSG 111 mg/dL - continue same basal * BSGs trending up with dinner and HS, BSG lower at lunch * Will trial looser CR with breakfast and tighter CR rest of day PLAN FOR INPATIENT GLYCEMIC CONTROL: * Basal insulin * NPH 50 units SC w/ prednisone today * Lantus 15 units SC HS * Bolus insulin * NovoLog per scale ACHS or Q6hrs while NPO * Goal Range: Low 110 mg/dL - High 160 mg/dL * Correction Factor: 20 mg/dL/unit * Nutritional / Prandial insulin per carb ratio of 1 unit per 5 grams CHO consumed / CR of 7 with breakfast only
[2023-12-21 18:12] LABS: ANTI-Xa, LMWH(Low Molecular Wt 0.17 IU/ML (< 0.10)
[2023-12-22 05:54] LABS: Basophils # (auto) 0.03 K/uL (0.00-0.20); Basophils % (auto) 0.2 %; Eosinophils # (auto) 0.12 K/uL (0.00-0.50); Eosinophils % (auto) 0.9 %; Hematocrit (blood only) 36.4 % (37.0-47.0); Hemoglobin 11.5 g/dl (12.0-16.0); Immature Granulocytes # (auto) 0.24 K/uL (0.01-0.20); Immature Granulocytes % (auto) 1.9 %; Lymphocytes # (auto) 2.06 K/uL (1.20-3.40); Lymphocytes % (auto) 16.2 %; Mean Corpuscular Hemoglobin 27.5 pg (25.0-34.0); Mean Corpuscular Hgb Conc 31.6 g/dL (32.0-36.0); Mean Corpuscular Volume 87.1 fL (80.0-100.0); Mean Platelet Volume 9.6 fL (9.4-12.4); Monocytes # (auto) 0.59 K/uL (0.11-0.59); Monocytes % (auto) 4.6 %; Neutrophils # (auto) 9.67 K/uL (1.40-6.50); Neutrophils % (auto) 76.2 %; Platelet Count 245 K/uL (130-400); RDW Coefficient of Variation 16.3 % (11.5-14.5); RDW Standard Deviation 51.3 fL (36.4-46.3); Red Blood Count 4.18 M/uL (4.20-5.40); White Blood Count 12.71 K/ul (4.8-10.8)
[2023-12-22 06:10] LABS: Calcium 8.5 mg/dl (8.6-10.3); Creatinine Clr Calc Pharmacy 107.2 ml/min; Est GFR (African American) 113.2 ml/min; Est GFR (Non-African American) 97.7 ml/min; Magnesium 1.8 mg/dl (1.7-2.4); Potassium 3.6 mmol/L (3.5-5.1)
--- NOTE | 2023-12-22 08:35 | Hospitalist Progress Note ---
Date of Service December 22, 2023 Assessment & Plan (1) COPD exacerbation: Plan: Acute on chronic COPD exacerbation at baseline has some shortness of breath bronchitis completed treatment with Rocephin/azithromycin - 2 step test ordered 12/17 no need for oxygen. - Continue home inhaler/equivalent duo nebs as needed - Prednisone tapered to 20 mg p.o. daily( had been complicating diabetic glucose management) - ambulate as tolerated (2) Acute hypokalemia: Plan: Acute hypokalemia: - pt takes KCl 40meq QID at home - metolazone discontinued, likely contributing to continued hypokalemia - nephrology recs appreciated, no evidence of RTA, did recommend resuming bumex and adding spironolactone, - (3) Bilateral knee pain: Plan: Bilateral knee pain: - Likely due to acute gout flare - improving - patient had bilateral knee pain on 12/15, 12/16 has subsided to right knee pain - uric acid on 12/15 was 8.0 - Patient was given colchicine 1.2 mg with an additional 0.6 mg on 12/15 for an acute flare - Will continue colchicine 0.6 mg twice daily for the next 2 days (until 12/17) based off patient's current creatinine clearance at 50.5 - continue with allopurinol (4) Heart failure with preserved ejection fraction: Plan: Heart failure with preserved ejection fraction: lasix given in ER patient is complaining of lower leg edema with signs of venous stasis - metolazone discontinued due to hypokalemia - cont spironolactone - - 2L fluid restriction (5) DM II (diabetes mellitus, type II), controlled: Plan: DM II (diabetes mellitus, type II) History of hypoglycemic reactions with steroids. Also sometimes gets sweets from any machines during prior admissions Basal bolus insulin while admitted Pharmacy glycemic consult due to history of labile requirements, and steroid use Plan History of DVT/PE Patient is on 1.5 mpk Lovenox at home, converted to 1 mg per kilogram of Lovenox twice daily while inpatient - hold lovenox given worsening bruising - hematology recs appreciated, will use 1.5 mg /kg, pt wishes to freddy until another day Chronic stable issues AYAN: Continue Celexa/Seroquel/Xanax Multiple myeloma: S/p transplant 2014. Needs outpatient oncology follow-up, no acute inpatient change in management Obesity hypoventilation: PPV nightly. Use Trelegy at home CODE STATUS: Full code Admission and Anticipated Discharge Date Admission Date: December 14, 2023 Subjective pt has no focal complaints but is focused on her potassium and her fluid restriction has had improvement in edema and chronic venous stasis dermatitis Physical Exam Physical Exam: pt is awake and alert lungs are clear cardiac is regular Results & Data Results & Data Vital Signs (Past 12 Hours) Vital Signs Temp Pulse Pulse Resp BP Pulse Ox O2 Del Method 12/22/23 07:45 97.9 F 91 H 18 119/79 91 Room Air 12/22/23 07:05 61 18 95 Room Air 12/22/23 07:00 92 H 12/22/23 04:17 97.9 F 99 H 18 108/69 94 CPAP 12/22/23 03:37 13 12/22/23 01:19 104 H 11 L 95 12/21/23 23:08 97.5 F L 105 H 20 119/81 95 Room Air 12/21/23 21:59 115 H O2 Flow Rate 12/22/23 07:45 12/22/23 07:05 12/22/23 07:00 12/22/23 04:17 12/22/23 03:37 2 12/22/23 01:19 2 12/21/23 23:08 12/21/23 21:59 Laboratory Results review cbc review chemistry PG Care Time/CCT Total # of Minutes Spent Total Time Spent with Patient: Total time spent is greater than 50% in coordination of care (as documented) at patient's floor/unit and/or counseling patient: Coding Level of Care Code 45477 SUB INP/OBS CARE 2/35MIN Diagnoses COPD exacerbation J44.1 Acute hypokalemia E87.6 Bilateral knee pain M25.561; M25.562 Chronic heart failure with preserved ejection fraction I50.32 Heart failure chronicity: chronic DM II (diabetes mellitus, type II), controlled E11.9 (4) Heart failure with preserved ejection fraction Heart failure chronicity: chronic Qualified Code(s): I50.32 - Chronic diastolic (congestive) heart failure
[2023-12-22] MEDS: predniSONE 10 MG TABLET PO SCH (08:42)
[2023-12-22] MEDS ORDERED: INSULIN HUMAN NPH SC SCH (09:00)
[2023-12-22] MEDS: INSULIN HUMAN NPH SC SCH (09:31)
[2023-12-22] MEDS: INSULIN ASPART PER UNIT CHARGE SC SCH ×2 (09:33→13:07)
[2023-12-22] MEDS: ONDANSETRON INJ 2 MG/ML 2 ML VIAL IV PRN (23:59)
--- NOTE | 2023-12-23 08:02 | Hospitalist Progress Note ---
Date of Service December 23, 2023 Assessment & Plan (1) COPD exacerbation: Plan: Acute on chronic COPD exacerbation, slightly worse on 12/22. will add scheduled duonebs and keep prednisone at 30 mg at baseline has some shortness of breath bronchitis completed treatment with Rocephin/azithromycin - 2 step test ordered 12/17 no need for oxygen. - Continue home inhaler/equivalent duo nebs as needed (2) Acute hypokalemia: Plan: Acute hypokalemia: resolved - metolazone discontinued, likely contributing to continued hypokalemia - nephrology recs appreciated, no evidence of RTA, continues bumex spironolactone, - (3) Bilateral knee pain: Plan: Bilateral knee pain: - Likely due to acute gout flare - improving - patient had bilateral knee pain on 12/15, 12/16 has subsided to right knee pain - uric acid on 12/15 was 8.0 - Patient was given colchicine 1.2 mg with an additional 0.6 mg on 12/15 for an acute flare - Will continue colchicine 0.6 mg twice daily for the next 2 days (until 12/17) based off patient's current creatinine clearance at 50.5 - continue with allopurinol (4) Heart failure with preserved ejection fraction: Plan: Heart failure with preserved ejection fraction: lasix given in ER patient is complaining of lower leg edema with signs of venous stasis - metolazone discontinued due to hypokalemia - cont spironolactone - -release fluid restriction (5) DM II (diabetes mellitus, type II), controlled: Plan: DM II (diabetes mellitus, type II) History of hypoglycemic reactions with steroids. Basal bolus insulin while admitted Pharmacy glycemic consult due to history of labile requirements, and steroid use Plan History of DVT/PE History of ovarian cancer about 32 years ago for which she is status post TLH/BSO, adjuvant chemotherapy treatment. Also has a history of multiple myeloma for which she is status post stem cell transplant in 2014 and history of unprovoked VTE in 2020. Patient is on 1.5 mpk Lovenox at home, converted to 1 mg per kilogram of Lovenox twice daily while inpatient - hold lovenox given worsening bruising when started up consider resumption of outpt 1.5 mg /kg, follows with Dr Juan at [facility] Chronic stable issues AYAN: Continue Celexa/Seroquel/Xanax Multiple myeloma: S/p transplant 2015. Needs outpatient oncology follow-up, no acute inpatient change in management Obesity hypoventilation: PPV nightly. Use Trelegy at home CODE STATUS: Full code Admission and Anticipated Discharge Date Admission Date: December 14, 2023 Subjective this pt feels short of breath, no cough has some intermittent pain still does not feel stable to go home Physical Exam Physical Exam: pt is awake and alert lungs are with poor air movement and scant wheezes cardiac is regular Results & Data Results & Data Vital Signs (Past 12 Hours) Vital Signs Temp Pulse Pulse Resp BP BP Pulse Ox 12/23/23 07:57 97.2 F L 97 H 16 128/72 100 12/23/23 07:34 68 18 92 12/22/23 23:45 98 H 8 L 94 12/22/23 21:26 97.9 F 112 H 16 109/72 95 12/22/23 21:00 O2 Del Method 12/23/23 07:57 Room Air 12/23/23 07:34 Room Air 12/22/23 23:45 Room Air 12/22/23 21:26 Room Air 12/22/23 21:00 Room Air Laboratory Results review cbc review cmp PG Care Time/CCT Total # of Minutes Spent Total Time Spent with Patient: Total time spent is greater than 50% in coordination of care (as documented) at patient's floor/unit and/or counseling patient: Coding Level of Care Code 16198 SUB INP/OBS CARE 3/50MIN Diagnoses COPD exacerbation J44.1 Acute hypokalemia E87.6 Bilateral knee pain M25.561; M25.562 Chronic heart failure with preserved ejection fraction I50.32 Heart failure chronicity: chronic DM II (diabetes mellitus, type II), controlled E11.9 (4) Heart failure with preserved ejection fraction Heart failure chronicity: chronic Qualified Code(s): I50.32 - Chronic diastolic (congestive) heart failure
[2023-12-23 09:08] LABS: Basophils # (auto) 0.04 K/uL (0.00-0.20); Basophils % (auto) 0.4 %; Eosinophils # (auto) 0.12 K/uL (0.00-0.50); Eosinophils % (auto) 1.1 %; Hematocrit (blood only) 39.7 % (37.0-47.0); Hemoglobin 12.5 g/dl (12.0-16.0); Immature Granulocytes # (auto) 0.34 K/uL (0.01-0.20); Lymphocytes # (auto) 2.83 K/uL (1.20-3.40); Mean Corpuscular Hemoglobin 27.5 pg (25.0-34.0); Mean Corpuscular Hgb Conc 31.5 g/dL (32.0-36.0); Mean Corpuscular Volume 87.3 fL (80.0-100.0); Mean Platelet Volume 9.5 fL (9.4-12.4); Monocytes # (auto) 0.52 K/uL (0.11-0.59); Monocytes % (auto) 4.6 %; Neutrophils # (auto) 7.49 K/uL (1.40-6.50); Neutrophils % (auto) 65.9 %; Platelet Count 262 K/uL (130-400); RDW Coefficient of Variation 16.4 % (11.5-14.5); RDW Standard Deviation 51.8 fL (36.4-46.3); Red Blood Count 4.55 M/uL (4.20-5.40); White Blood Count 11.34 K/ul (4.8-10.8)
[2023-12-23 09:29] LABS: Albumin Globulin Ratio 1.4 (0.9-2); Albumin Level 3.6 gm/dl (3.4-5.0); Bilirubin,Total 0.4 mg/dl (0.2-1.0); Creatinine Clr Calc Pharmacy 89.9 ml/min; Est GFR (African American) 105.8 ml/min; Est GFR (Non-African American) 91.3 ml/min; Globulin 2.6 gm/dl (2.5-4.0); Potassium 3.7 mmol/L (3.5-5.1); Total Protein 6.2 gm/dl (6.0-8.3)
--- NOTE | 2023-12-23 13:55 | Pharmacy Report ---
Pharmacy Glycemic Short Note 2 - Date of Service December 23, 2023 - Glycemic Short BSG Results (Last 24 hours): 12/22/23 12/22/23 12/22/23 17:21 20:13 20:14 Glucose POC Glucose 220 H 360 H* 305 H* 12/23/23 12/23/23 12/23/23 07:39 08:50 11:29 Glucose 203 H POC Glucose 169 H 141 H OUTPATIENT ANTIDIABETIC REGIMEN: * Insulin glargine 68 units SC qAM * Insulin aspart 10 units SC TIDM + SSI * Ozempic 0.25 mg SC weekly HbA1c: 9.8% (10/16/23) ASSESSMENT: * LL is a 63 year old female admitted on 12/12 w/ COPD exacerbation * Currently ordered methylprednisolone 40 mg IV BID and ceftriaxone/azithromycin * Patient is known to pharmacy glycemic service for past hyperglycemia, usually in context of steroid administration * PMH includes multiple myeloma (s/p transplant 2014), COPD, CHF * Blood sugars did decline significantly from breakfast to lunch today (298 -> 85 mg/dL) * Will increase upper end of goal range to decrease amount of correctional insulin given 12/15/23 * Patient received total 105 units of insulin yesterday: 60 units basal + 20 units bolus * BSGs yesterday were 217-97-864-110 mg/dl. Fasting BSG today was 103 mg/dl. * Basal insulin continued the same- 40 units in AM and scale at HS based on BSG. * Spoke with nurse today. Patient did not receive adequate insulin coverage for carbs eaten at breakfast today since she returned her meal tray for another meal. Nurse gave only 4 units of insulin based off the meal that was in front of her which was apparently returned. Patient should have received 11 units. This seems to happen often per nurse. Pre-lunch BSG was therefore elevated at 278 mg/dl. 12/17/23 * Blood sugars tightly controlled yesterday w/ last dose of methylprednisolone * Received 80 units of insulin (50/50 basal/bolus split) * Steroids changed to prednisone 40 mg PO daily starting today * Will loosen carb ratio slightly given change in steroids - if high today will tighten again tomorrow 12/18/23 * Blood sugars elevated yesterday so will change from Lantus to combination of NPH and Lantus to better cover prednisone * Lantus scale this evening w/ no change to Novolog 12/19/23 * BSGs yesterday were 793-93-235-328 mg/dl. Patient received 40 units NPH, 20 units Lantus and 56 units bolus Novolog. * Fasting BSG today was low at 60 mg/dl. To obtain better BSG control at dinner and HS, 50 units of NPH was given with Prednisone this morning. However, pre- lunch BSG trended down to 59 mg/dl. * Basal Lantus dose at HS reduced to 15 units for tonight. Will re-assess basal dosing tomorrow morning. 12/21/23 * Patient received total of 110 units of insulin yesterday, of which 50 units were NPH and 15 units basal * Fasting BSG 111 mg/dL - continue same basal * BSGs trending up with dinner and HS, BSG lower at lunch * Will trial looser CR with breakfast and tighter CR rest of day 12/23/23 * Patient received total of 104 units of insulin yesterday, of which 50 units were NPH and 15 units basal * Fasting BSG 169 mg/dL - continue same basal, may adjust dose in AM if fasting BSG still elevated * BSGs continue to trend up with dinner and HS, BSG lower at lunch, will tighten carb ratio for non-breakfast insulin doses PLAN FOR INPATIENT GLYCEMIC CONTROL: * Basal insulin * NPH 50 units SC w/ prednisone today * Lantus 15 units SC HS * Bolus insulin * NovoLog per scale ACHS or Q6hrs while NPO * Goal Range: Low 110 mg/dL - High 160 mg/dL * Correction Factor: 20 mg/dL/unit * Nutritional / Prandial insulin per carb ratio of 1 unit per 3.5 grams CHO consumed / CR of 7 with breakfast only
[2023-12-23] MEDS ORDERED: oxyCODONE HCL IR 5 MG TAB (IMMEDIATE RELEASE) PO PRN (16:56)
[2023-12-23] MEDS: ALBUT/IPRATROP 3MG/0.5MG NEB 3 ML VIAL NEB SCH (20:53)
--- NOTE | 2023-12-24 09:44 | XRay Report ---
XR chest 2V PA/lateral HISTORY: eval pneumonia COMPARISON: Chest 12/14/2023. FINDINGS: No pneumothorax. No pleural effusions. The cardiac silhouette is stable in size. No evidenc e for pulmonary edema. Old healed bilateral rib fractures are again noted. Stable expansile right ant erior fourth rib lesion remains unchanged. Small left basilar linear densities persist and favor scar ring or subsegmental atelectasis. Small patchy and linear densities within the right lung base have s lightly progressed. Prior cholecystectomy. IMPRESSION: Small patchy and linear densities within the base of the right lower lobe have slightly progressed. T his could represent atelectasis or a low-grade pneumonitis. ACT 112: Negative or not required by law. Electronically signed by: Chester Salas M.D. 12/24/2023 9:43 AM
--- NOTE | 2023-12-24 18:08 | Hospitalist Progress Note ---
Date of Service December 24, 2023 Assessment & Plan (1) COPD exacerbation: Plan: Acute on chronic COPD exacerbation, slightly worse on 12/22. will add scheduled duonebs and keep prednisone at 30 mg at baseline has some shortness of breath bronchitis completed treatment with Rocephin/azithromycin - 2 step test ordered 12/17 no need for oxygen. - Continue home inhaler/equivalent duo nebs as needed (2) Acute hypokalemia: Plan: Acute hypokalemia: resolved - metolazone discontinued, likely contributing to continued hypokalemia - nephrology recs appreciated, no evidence of RTA, continues bumex spironolactone, - (3) Bilateral knee pain: Plan: Bilateral knee pain: - Likely due to acute gout flare - improving - patient had bilateral knee pain on 12/15, 12/16 has subsided to right knee pain - uric acid on 12/15 was 8.0 -Improved with colchicine patient request as needed oxycodone - continue with allopurinol (4) Heart failure with preserved ejection fraction: Plan: Heart failure with preserved ejection fraction: lasix given in ER patient is complaining of lower leg edema with signs of venous stasis - metolazone discontinued due to hypokalemia - cont spironolactone - -release fluid restriction (5) DM II (diabetes mellitus, type II), controlled: Plan: DM II (diabetes mellitus, type II) History of hypoglycemic reactions with steroids. Basal bolus insulin while admitted Pharmacy glycemic consult due to history of labile requirements, and steroid use Plan History of DVT/PE History of ovarian cancer about 32 years ago for which she is status post TLH/BSO, adjuvant chemotherapy treatment. Also has a history of multiple myeloma for which she is status post stem cell transplant in 2014 and history of unprovoked VTE in 2020. Patient is on 1.5 mpk Lovenox at home, converted to 1 mg per kilogram of Lovenox twice daily while inpatient - hold lovenox given worsening bruising when started up consider resumption of outpt 1.5 mg /kg, follows with Dr Juan at [facility] Chronic stable issues AYAN: Continue Celexa/Seroquel/Xanax Multiple myeloma: S/p transplant 2014. Needs outpatient oncology follow-up, no acute inpatient change in management Obesity hypoventilation: PPV nightly. Use Trelegy at home CODE STATUS: Full code Admission and Anticipated Discharge Date Admission Date: December 14, 2023 Subjective this pt feels short of breath, no cough, encouraged incentive spirometer has some intermittent pain still does not feel stable to go home Physical Exam Physical Exam: pt is awake and alert lungs are with poor air movement and scant wheezes cardiac is regular Results & Data Results & Data Vital Signs (Past 12 Hours) Vital Signs Temp Pulse Resp BP BP Pulse Ox O2 Del Method 12/24/23 15:44 98.8 F 112 H 16 129/77 95 Room Air 12/24/23 15:03 119 H 21 94 Room Air 12/24/23 14:48 Room Air 12/24/23 11:01 108 H 17 97 Room Air 12/24/23 07:32 79 18 89 L Room Air 12/24/23 07:16 97.7 F 88 16 142/86 H 91 Room Air Laboratory Results Reviewed chest x-ray PG Care Time/CCT Total # of Minutes Spent Total Time Spent with Patient: Total time spent is greater than 50% in coordination of care (as documented) at patient's floor/unit and/or counseling patient: Coding Level of Care Code 26124 SUB INP/OBS CARE 2/35MIN Diagnoses COPD exacerbation J44.1 Acute hypokalemia E87.6 Bilateral knee pain M25.561; M25.562 Chronic heart failure with preserved ejection fraction I50.32 Heart failure chronicity: chronic DM II (diabetes mellitus, type II), controlled E11.9 (4) Heart failure with preserved ejection fraction Heart failure chronicity: chronic Qualified Code(s): I50.32 - Chronic diastolic (congestive) heart failure
[2023-12-24] MEDS: LANTUS PER UNIT CHARGE SC SCH (20:35)
[2023-12-25 08:14] VITALS: BP 134/78; RESP 18; TEMP 97.3; O2SAT 97
--- NOTE | 2023-12-25 10:18 | Pharmacy Report ---
Pharmacy Glycemic Short Note 2 - Date of Service December 25, 2023 - Glycemic Short BSG Results (Last 24 hours): 12/24/23 12/24/23 12/24/23 11:20 16:14 20:26 POC Glucose 136 H 235 H 215 H 12/25/23 07:29 POC Glucose 152 H OUTPATIENT ANTIDIABETIC REGIMEN: * Insulin glargine 68 units SC qAM * Insulin aspart 10 units SC TIDM + SSI * Ozempic 0.25 mg SC weekly HbA1c: 9.8% (10/16/23) ASSESSMENT: * LL is a 63 year old female admitted on 12/12 w/ COPD exacerbation * Currently ordered methylprednisolone 40 mg IV BID and ceftriaxone/azithromycin * Patient is known to pharmacy glycemic service for past hyperglycemia, usually in context of steroid administration * PMH includes multiple myeloma (s/p transplant 2014), COPD, CHF * Blood sugars did decline significantly from breakfast to lunch today (298 -> 85 mg/dL) * Will increase upper end of goal range to decrease amount of correctional insulin given 12/15/23 * Patient received total 105 units of insulin yesterday: 60 units basal + 20 units bolus * BSGs yesterday were 118-48-187-110 mg/dl. Fasting BSG today was 103 mg/dl. * Basal insulin continued the same- 40 units in AM and scale at HS based on BSG. * Spoke with nurse today. Patient did not receive adequate insulin coverage for carbs eaten at breakfast today since she returned her meal tray for another meal. Nurse gave only 4 units of insulin based off the meal that was in front of her which was apparently returned. Patient should have received 11 units. This seems to happen often per nurse. Pre-lunch BSG was therefore elevated at 278 mg/dl. 12/17/23 * Blood sugars tightly controlled yesterday w/ last dose of methylprednisolone * Received 80 units of insulin (50/50 basal/bolus split) * Steroids changed to prednisone 40 mg PO daily starting today * Will loosen carb ratio slightly given change in steroids - if high today will tighten again tomorrow 12/18/23 * Blood sugars elevated yesterday so will change from Lantus to combination of NPH and Lantus to better cover prednisone * Lantus scale this evening w/ no change to Novolog 12/19/23 * BSGs yesterday were 400-75-822-328 mg/dl. Patient received 40 units NPH, 20 units Lantus and 56 units bolus Novolog. * Fasting BSG today was low at 60 mg/dl. To obtain better BSG control at dinner and HS, 50 units of NPH was given with Prednisone this morning. However, pre- lunch BSG trended down to 59 mg/dl. * Basal Lantus dose at HS reduced to 15 units for tonight. Will re-assess basal dosing tomorrow morning. 12/21/23 * Patient received total of 110 units of insulin yesterday, of which 50 units were NPH and 15 units basal * Fasting BSG 111 mg/dL - continue same basal * BSGs trending up with dinner and HS, BSG lower at lunch * Will trial looser CR with breakfast and tighter CR rest of day 12/23/23 * Patient received total of 104 units of insulin yesterday, of which 50 units were NPH and 15 units basal * Fasting BSG 169 mg/dL - continue same basal, may adjust dose in AM if fasting BSG still elevated * BSGs continue to trend up with dinner and HS, BSG lower at lunch, will tighten carb ratio for non-breakfast insulin doses 12/25/23 * Janae received 118 units of insulin yesterday (68 were basal) * Fasting BSG this AM acceptable, continue NPH 50 units with prednisone 30mg daily and Lantus at bedtime (was increased slightly yesterday) * BSGs trend up throughout the day, tighten afternoon and evening carbohydrate ratio slightly PLAN FOR INPATIENT GLYCEMIC CONTROL: * Basal insulin * NPH 50 units SC w/ prednisone * Lantus 18 units SC HS * Bolus insulin * NovoLog per scale ACHS or Q6hrs while NPO * Goal Range: Low 110 mg/dL - High 160 mg/dL * Correction Factor: 20 mg/dL/unit * Nutritional / Prandial insulin per carb ratio of 1 unit per 3 grams CHO consumed / CR of 7 with breakfast only
[2023-12-25 10:27] LABS: BUN Creatinine Ratio 27.4 (10-20); Est GFR (African American) 102.3 ml/min; Est GFR (Non-African American) 88.3 ml/min; Magnesium 1.7 mg/dl (1.7-2.4); Potassium 3.9 mmol/L (3.5-5.1)
--- NOTE | 2023-12-25 14:04 | Discharge Summary ---
Discharge Summary Date of Service December 25, 2023 Principal Dx & Hospital Course #1 = Principal Diagnosis (1) COPD exacerbation: (2) Acute hypokalemia: (3) Bilateral knee pain: (4) Heart failure with preserved ejection fraction: (5) DM II (diabetes mellitus, type II), controlled: Plan Acute on chronic COPD exacerbation mild decline CXR on 12/13 without acute finding. Slightly congested appearing, received Lasix x 1 in the ER. bronchitis completed treatment with Rocephin/azithromycin - 2 step test ordered to be completed to reassess patient's oxygen needs: completed on 12/17 no need for oxygen. - Continue home inhaler/equivalent duo nebs as needed - Prednisone 40 mg p.o. daily. taper initiated - ambulate as tolerated #Acute hypokalemia: resolved - pt takes KCl 40meq QID at home, metolazone discontinued, likely contributing to continued hypokalemia - patient will remain on med tele to monitor for arrhythmias - nephrology recs appreciated, no evidence of RTA, did recommend resuming bumex and adding spironolactone, discontinue metolozone at this time - stable on potassium daily and spironolactone #Bilateral knee pain: - Likely due to acute gout flare - improving - patient had bilateral knee pain on 12/15, 12/16 has subsided to right knee pain - uric acid on 12/15 was 8.0 - Patient was given colchicine 1.2 mg with an additional 0.6 mg on 12/15 for an acute flare - Will continue colchicine 0.6 mg twice daily for the next 2 days (until 12/17) based off patient's current creatinine clearance at 50.5 - continue with allopurinol #Heart failure with preserved ejection fraction: lasix given in ER patient is complaining of lower leg edema with signs of venous stasis - metolazone discontinued due to hypokalemia - cont spironolactone - bumex 2mg BID changed to IV given persistent edema , currently on BID PO, monitor potassium (goal 4) / magnesium (goal 2) closely - 2L fluid restriction , but pt does not want to follow No MONICA on admission, creatinine 0.86 on 12/16 #DM II (diabetes mellitus, type II) History of hypoglycemic reactions with steroids. Also sometimes gets sweets from any machines during prior admissions Basal bolus insulin while admitted - resume home insulin regimen, outpatient follow up with PCP #History of DVT/PE Patient is on 1.5 mpk Lovenox at home, converted to 1 mg per kilogram of Lovenox twice daily while inpatient - will hold lovenox given worsening bruising - hematology recs appreciated, anti-Xa: 0.17, will resume home lovenox , with outpatient follow up with health club attendant #Chronic stable issues AYAN: Continue Celexa/Seroquel/Xanax Multiple myeloma: S/p transplant 2014. Needs outpatient oncology follow-up, no acute inpatient change in management Obesity hypoventilation: PPV nightly. Use Trelegy at home CODE STATUS: Full code Admission HPI Per Admitting Provider Janae is a 63-year-old female with frequent admissions for COPD exacerbations who presents with dyspnea, shortness of breath, fatigue, and worsened exertional fatigue. Typically has been able to be treated with steroids and Lasix if indicated for HFpEF be discharged home however she feels much worse than normal and enough her treatments limited ambulation at times are limited by shortness of breath. Janae since bedside. She reports in the last several days with specially last 2 days she has had much worse shortness of breath with exertion than normal. She feels that she has more fluid in her belly. She does not think she has had much swelling in her leg, had a purpleish bruise on her left leg otherwise no extremity changes. No extremity pain. She has no nausea/vomiting/diarrhea/constipation. She has had a cough which is minimally productive and increased wheezing. She feels generally worse than she has in the past, denies any chest pain chest pressure syncope or presyncope Medical History: Reviewed Medications: Reviewed Surgical History: Reviewed Family history: Reviewed Allergies: Reviewed Social History: Reviewed Code Status: Full Discharge Exam Gen: pt intermittently drowsy HEENT: NC/AT, MMM Lungs: no wheezing noted CVS: s1s2nl RRR Abd: soft, NT, nl BS Ext: + edema, improving Psych: pleasant, communicating appropriately Skin: multiple areas of large bruising Discharge Plan Discharge Items Patient Disposition: Home - Self-Care Reason For Visit: DYSPNEA, COPD EXACERBATION +/- HFPEF Discharge Diagnosis: COPD exacerbation, hypokalemia Activity: Resume your previous activity Non-emergency contact: Primary Care Provider, Heel Coverer, Oncologist and Pulm onologist Call non-emergency contact if: you have any medication questions and your symptoms worsen Follow-up/Referrals: Radha Barboza PA-C [Primary Care Provider] - (PLEASE CALL YOUR PRIMARY CARE PROVIDER TO SCHEDULE A HOSPITAL DISCHARGE FOLLOW-UP APPOINTMENT WITHIN 7-10 DAYS) Diet: Carb Consistent or DM2 and Heart Healthy Addtl Attending Provider Instructions: Continue medications as prescribed Please call your oncologist to discuss bruising, you are cleared by health club attendant here to resume at your home dose monitor your blood glucose closely while on steroids, if your blood glucose is elevated, call your PCP for medication adjustment. Follow up with your PCP in about 7 to 10 days Pending Studies at Discharge: No Stand-Alone Forms: My [facility] [place], Smoking Cessation Medications and DC Order Prescriptions: New spironolactone 25 mg Tablet 25 mg PO QAM Qty: 30 0RF potassium chloride 20 mEq Tablet,Er Particles/Crystals 40 meq PO QAM Qty: 60 0RF prednisone 10 mg tablet 10 mg PO DIRECTED Qty: 14 0RF Rx Instructions: see taper instructions 3 tablets on 12/26 followed by 2 tablets for 5 days, 1 tablet for 5 days, then stop. Continued ondansetron HCl 4 mg Tablet 4 mg PO Q8H PRN (Reason: NAUSEA/VOMITING) quetiapine 200 mg tablet 200 mg PO HS nystatin 100,000 unit/gram Powder 1 applic TOPICAL BID PRN (Reason: UNDER BREASTS NEEDED.) buprenorphine-naloxone 8-2 mg film 0.5 film sublingual BID enoxaparin 150 mg/mL syringe 150 mg subcut UD Rx Instructions: is trying to change this levalbuterol HCl 1.25 mg/3 mL solution for nebulization 1.25 mg INHALATION TID PRN (Reason: Shortness Of Breath Or Wheezing) alprazolam 0.5 mg tablet 0.5 mg PO TID Qty: 14 0RF Rx Instructions: pt requesting to take same time as suboxone albuterol sulfate 90 mcg/actuation HFA aerosol inhaler 2 puff INHALATION UD PRN (Reason: Shortness Of Breath Or Wheezing) bumetanide 2 mg tablet 2 mg PO BID Qty: 60 0RF Rx Instructions: morning and lunch ipratropium bromide 0.02 % solution 3 ml continuous nebulization QID PRN (Reason: shortness of breath) Qty: 75 0RF insulin glargine 100 unit/mL (3 mL) insulin pen 68 unit SUBCUT QAM Qty: 15 0RF calcium polycarbophil [Fiber (calcium polycarbophil)] 625 mg Tablet 625 mg PO QAM Qty: 30 0RF Rx Instructions: Over the counter colchicine [Colcrys] 0.6 mg Tablet 0.6 mg PO BID PRN (Reason: gout attacks) Qty: 60 0RF Rx Instructions: Take 1.2mg po x 1 followed by 0.6mg po bid x 3 days guaifenesin [Mucinex] 600 mg tablet extended release 12hr 600 mg PO Q12 Rx Instructions: OTC fluticasone propionate [Flonase Allergy Relief] 50 mcg/actuation spray,suspension 1 spray intranasal BID Qty: 0 0RF Rx Instructions: administer into each nostril Trelegy Ellipta 200-62.5-25 mcg blister with device 1 ea INHALATION QAM Qty: 60 0RF levalbuterol tartrate 45 mcg/actuation HFA aerosol inhaler 2 puff INHALATION Q4 PRN (Reason: WHEEZE) Qty: 15 0RF insulin aspart U-100 [Novolog FlexPen U-100 Insulin] 100 unit/mL (3 mL) insulin pen 0 unit subcut TIDM Ozempic Inj 0.25 mg INJ WK citalopram 10 mg tablet 10 mg PO DAILY allopurinol 100 mg tablet 300 mg PO QAM Discontinued ibuprofen 200 mg tablet 600 mg PO TID PRN (Reason: pain) Qty: 30 0RF Rx Instructions: Over the counter potassium chloride 20 mEq Tablet,Er Particles/Crystals 40 meq PO QID Qty: 30 0RF metolazone 2.5 mg Tablet 2.5 mg PO MoWeFr@0900 Qty: 30 0RF Discharge Orders: Discharge Order- CHF (Routine); Ordered 12/25/23 Ordered By: Mireya Cárdenas Admission Data Admit Date/Time: 12/14/23 22:33 Attending Provider: Mireya Cárdenas Admit Provider: Jaziel Ellsworth Primary Care Provider: Radha Barboza Other Providers: Jaziel Ellsworth; Florian Dorman; Alexandrea Vance Kevin C.; Junie Cleaning; [place],[facility] Hospital Stay Data Consultations 12/13/23 17:52 ED Decision to Admit Stat 12/18/23 17:18 Consult Nephrology Routine 12/20/23 12:12 Consult Oncology Routine Pending Results Patient Have Any Pending Studies at Discharge: No Discharge Instructions Given to Patient (Per Discharging Provider) Continue medications as prescribed Please call your oncologist to discuss bruising, you are cleared by health club attendant here to resume at your home dose monitor your blood glucose closely while on steroids, if your blood glucose is elevated, call your PCP for medication adjustment. Follow up with your PCP in about 7 to 10 days Total Time Total Time Spent Total Time Spent (In Minutes): 60 Coding Level of Care Code 12143 INP/OBS DISCH >30 MIN Diagnoses COPD exacerbation J44.1 Acute hypokalemia E87.6 Bilateral knee pain M25.561; M25.562 Chronic heart failure with preserved ejection fraction I50.32 Heart failure chronicity: chronic DM II (diabetes mellitus, type II), controlled E11.9
[2023-12-25 15:01] VITALS: PULSE 101
== END 2023-12-25 15:54 | disposition home or self-care (01) | DRG 190 ==
LOC: ED 14:59 → 2N 14:59 → SUATTDRO 18:46 → 2N 19:48 → SUATTDRO 12-14 22:33 → 3N 12-22 21:29

== ENCOUNTER 2023-12-30 18:15 | Observation (INO) ==
[2023-12-30 18:50] LABS: Basophils # (auto) 0.04 K/uL (0.00-0.20); Basophils % (auto) 0.2 %; Eosinophils # (auto) 0.02 K/uL (0.00-0.50); Eosinophils % (auto) 0.1 %; Hematocrit (blood only) 42.2 % (37.0-47.0); Hemoglobin 13.7 g/dl (12.0-16.0); Immature Granulocytes # (auto) 0.31 K/uL (0.01-0.20); Immature Granulocytes % (auto) 1.7 %; Lymphocytes # (auto) 2.58 K/uL (1.20-3.40); Lymphocytes % (auto) 13.8 %; Mean Corpuscular Hemoglobin 27.8 pg (25.0-34.0); Mean Corpuscular Hgb Conc 32.5 g/dL (32.0-36.0); Mean Corpuscular Volume 85.6 fL (80.0-100.0); Mean Platelet Volume 9.2 fL (9.4-12.4); Monocytes # (auto) 0.67 K/uL (0.11-0.59); Monocytes % (auto) 3.6 %; Neutrophils # (auto) 15.04 K/uL (1.40-6.50); Neutrophils % (auto) 80.6 %; Nucleated RBC # (auto) 0.02 K/uL (0.00-0.12); Nucleated RBC % (auto) 0.1 %; Platelet Count 302 K/uL (130-400); RDW Coefficient of Variation 16.7 % (11.5-14.5); RDW Standard Deviation 50.3 fL (36.4-46.3); Red Blood Count 4.93 M/uL (4.20-5.40); White Blood Count 18.66 K/ul (4.8-10.8)
[2023-12-30 19:05] LABS: Alanine Aminotransferase 33 U/L (7-52); Albumin Globulin Ratio 1.9 (0.9-2); Albumin Level 4.5 gm/dl (3.4-5.0); Alkaline Phosphatase 83 U/L (34-104); Anion Gap 10 (3-11); Aspartate Aminotransferase 19 U/L (13-39); BUN Creatinine Ratio 29.1 (10-20); Bilirubin,Total 0.4 mg/dl (0.2-1.0); Blood Urea Nitrogen 32 mg/dl (6-23); Calcium 9.2 mg/dl (8.6-10.3); Carbon Dioxide 31 mmol/L (21-32); Chloride 95 mmol/L (98-107); Est GFR (African American) 62.3 ml/min; Est GFR (Non-African American) 53.8 ml/min; Globulin 2.4 gm/dl (2.5-4.0); Glucose 146 mg/dl (70-99(Fasting)); Potassium 3.9 mmol/L (3.5-5.1); Sodium 136 mmol/L (136-145); Total Protein 6.9 gm/dl (6.0-8.3)
--- NOTE | 2023-12-30 19:07 | XRay Report ---
XR chest 1V not portable HISTORY: 63 years-old Female back pain/tachy acute shortness of breath with tachycardia COMPARISON: 12/24/2023 TECHNIQUE: PA view of the chest FINDINGS: Cardiac silhouette is upper limits of normal in size. Mild linear bibasilar atelectasis versus scarri ng redemonstrated. Chronic appearing right-sided fracture deformities of the ribs. No pneumothorax, p leural effusion or pulmonary edema. IMPRESSION: No acute process. ACT 112: Negative or not required by law. The above report was generated using voice recognition software. It may contain grammatical, syntax o r spelling errors. Electronically signed by: Avi Leon M.D. 12/30/2023 7:05 PM
[2023-12-30 19:47] LABS: Base Excess VBG 8.8 mEq/L; HCO3 VBG 34 mmol/L; Oxygen Saturation VBG < 60.0 %; PCO2 VBG 48 mmHg (38-50); PO2 VBG 33 mmHg; pH VBG 7.46 (7.36-7.41)
[2023-12-30 20:00] LABS: Troponin I High Sensitivity 38.4 pg/ml (0-14)
[2023-12-30 20:40] LABS: Partial Thromboplastin Ratio 0.8; Partial Thromboplastin Time 21 Seconds (21-31); Prothrombin Time 10.6 Seconds (9.0-12.0)
--- NOTE | 2023-12-30 20:50 | Ultrasound Report ---
Exam(s): US VENOUS BILATERAL LOWER EXTREMITIES EXAM: US Duplex Bilateral Lower Extremities Veins CLINICAL HISTORY: Reason for exam: ro dvt. TECHNIQUE: Real-time duplex ultrasound scan of the bilateral lower extremity veins integrating B-mode two-dimensional vascular structure, Doppler spectral analysis, color flow Doppler imaging and compression. COMPARISON: No relevant prior studies available. FINDINGS: Right deep veins: Unremarkable. No DVT in the right common femoral, femoral, proximal deep femoral or popliteal veins. The veins demonstrate normal color flow, are normally compressible, with normal phasic flow and/or augmentation response. Right superficial veins: Unremarkable. No thrombus in the visualized right great saphenous vein. Left deep veins: Unremarkable. No DVT in the left common femoral, femoral, proximal deep femoral or popliteal veins. The veins demonstrate normal color flow, are normally compressible, with normal phasic flow and/or augmentation response. Left superficial veins: Unremarkable. No thrombus in the visualized left great saphenous vein. Soft tissues: Unremarkable. IMPRESSION: No evidence of acute DVT. Electronically signed by: Nehemias Zambrano M.D. 12/30/23 20:49 PM
[2023-12-30 20:52] LABS: D Dimer 640 ug/L FEU (0-500)
--- NOTE | 2023-12-30 21:06 | Emergency Department Note ---
History of Present Illness General Chief Complaint: Illness Stated Complaint: COPD, BRUSING/ARMS/LT FOOT PURPLE, ARRYTHMIA Time Seen by Provider: 12/30/23 19:22 History of Present Illness Provider Complaint: + palpitations Onset (ago): 1 day(s) Duration: + Intermittent Maximum Pain Intensity: 8 Context: + occurred during rest Associated symptoms: + chest pain, + shortness of breath and + other (Lower extremity pain) HPI narrative: Patient reports that she has not been taking her Lovenox as prescribed. Home Medications Medication Instructions Recorded Confirmed Type buprenorphine 8 mg-naloxone 2 mg 0.5 film sublingual BID 05/14/22 12/13/23 History sublingual film nystatin 100,000 unit/gram topical 1 applic topical BID PRN UNDER 05/14/22 12/13/23 History powder BREASTS NEEDED. ondansetron HCl 4 mg tablet 4 mg PO Q8H PRN NAUSEA/VOMITING 05/14/22 12/13/23 History quetiapine 200 mg tablet 200 mg PO HS 05/14/22 12/13/23 History levalbuterol HCl 1.25 mg/3 mL 1.25 mg inhalation TID PRN 01/16/23 12/13/23 History solution for nebulization Shortness Of Breath Or Wheezing enoxaparin 150 mg/mL subcutaneous 150 mg subcut UD 05/07/23 12/13/23 History syringe alprazolam 0.5 mg tablet 0.5 mg PO TID #14 tabs 08/02/23 12/13/23 Rx albuterol sulfate 90 mcg/actuation 2 puff inhalation UD PRN Shortness 08/30/23 12/13/23 History aerosol inhaler Of Breath Or Wheezing guaifenesin 600 mg tablet, 600 mg PO Q12 Congestion 09/11/23 12/13/23 History extended release 12 hr (Mucinex) fluticasone propionate 50 1 spray intranasal BID nasal 09/15/23 12/13/23 Rx mcg/actuation nasal congestion #0 mL spray,suspension (Flonase Allergy Relief) fluticasone fur. 200 mcg-umeclid 1 ea inhalation QAM #60 ea 09/16/23 12/13/23 Rx 62.5 mcg-vilant 25 mcg inhalat.powder (Trelegy Ellipta) levalbuterol tartrate 45 2 puff inhalation Q4 PRN WHEEZE 09/16/23 12/13/23 Rx mcg/actuation aerosol inhaler #15 grams bumetanide 2 mg tablet 2 mg PO BID #60 tabs 09/29/23 12/13/23 Rx insulin glargine 100 unit/mL (3 68 unit (0.68 mL) subcut QAM #15 mL 10/17/23 12/13/23 Rx mL) subcutaneous pen ipratropium bromide 0.02 % 3 ml continuous nebulization QID 10/17/23 12/13/23 Rx solution for inhalation PRN shortness of breath #75 mL calcium polycarbophil 625 mg 625 mg PO QAM #30 tabs 10/30/23 12/13/23 Rx tablet (Fiber (calcium polycarbophil)) colchicine 0.6 mg tablet (Colcrys) 0.6 mg PO BID PRN gout attacks #60 10/30/23 12/13/23 Rx tabs Ozempic Inj 0.25 mg INJ WK 11/07/23 12/13/23 History insulin aspart U-100 100 unit/mL 0 unit subcut TIDM 11/07/23 12/13/23 History (3 mL) subcutaneous pen (Novolog FlexPen U-100 Insulin aspart) allopurinol 100 mg tablet 300 mg PO QAM 12/13/23 12/13/23 History citalopram 10 mg tablet 10 mg PO DAILY 12/13/23 12/13/23 History potassium chloride 20 mEq 40 meq (2 x 20 mEq) PO QAM #60 tabs 12/25/23 Rx tablet,extended release(part/cryst) prednisone 10 mg tablet 10 mg PO DIRECTED #14 tabs 12/25/23 Rx spironolactone 25 mg tablet 25 mg PO QAM #30 tabs 12/25/23 Rx Allergies Allergy/AdvReac Type Severity Reaction Status Date / Time codeine Allergy Severe Anaphylaxis Verified 11/14/23 01:37 Iodinated Contrast Media Allergy Severe Anaphylaxis Verified 11/14/23 01:37 shellfish derived Allergy Severe Anaphylaxis Verified 11/14/23 01:37 tramadol Allergy Intermediate ITCHINESS Verified 11/14/23 01:37 iohexol Allergy Unknown CAN'T Verified 11/14/23 01:37 REMEMBER diphenhydramine AdvReac Severe Anxiety Verified 11/14/23 01:37 [From Benadryl] promethazine AdvReac Intermediate Anxiety Verified 11/14/23 01:37 Past Med/Surg History Problem List (Updated 12/30/23 @ 21:28 by Bhupinder Allen MD) D-dimer, elevated (Acute) Palpitations (Acute) Chest pain (Acute) Contusion of left foot (Acute) Swelling of left foot (Acute) Bilateral knee pain CHF exacerbation (Acute) COPD exacerbation (Acute) Chest pain Right knee pain DM II (diabetes mellitus, type II), controlled Elevated troponin (Acute) Acute and chronic respiratory failure with hypoxia (Acute) Acute exacerbation of chronic obstructive pulmonary disease (Acute) Gout Leukocytosis (Acute) Chronic hypoxic respiratory failure Acute hypokalemia (Acute) Shortness of breath (Acute) Multiple myeloma Last chemotherapy 2016 Follows with medical oncology in [facility] Diabetes Hypokalemia Heart failure with preserved ejection fraction COPD (chronic obstructive pulmonary disease) (Acute) Shortness of breath (Acute) Generalized anxiety disorder Chronic respiratory failure with hypoxia and hypercapnia Tobacco abuse counseling Chronic hypercapnic respiratory failure Moderate persistent asthma Constipation History of pulmonary embolism Obesity hypoventilation syndrome Chronic anticoagulation Acute bronchitis Pulmonary vascular congestion Right knee pain Nasal fracture Rib fractures (Acute) COPD (chronic obstructive pulmonary disease) (Acute) Medical History (Updated 12/30/23 @ 21:28 by Bhupinder Allen MD) Acute exacerbation of chronic obstructive pulmonary disease Acute heart failure with preserved ejection fraction (HFpEF) Acute exacerbation of chronic obstructive pulmonary disease Tobacco abuse Opiate dependence Asthma Surgical History No pertinent past surgical history Family History Sister Asthma Social History Smoking Status: Current every day smoker Tobacco Type: Cigarettes Cigarettes Per Day: 1 cigarette per day; Second Hand Exposure: No; Do You Dip or Chew Tobacco: No; Hx Alcohol Use: No Hx Substance Use: No Preferred Language: Pashto Communication Ability: Effective Systems Designer Required: No Beliefs That Will Affect Care: None Current Living Situation: Family Current Living Situation Comment: lives with sister temporarily Feels Safe at Home: Yes Assistive Devices: CPAP and Oxygen - Continuous Physical Exam 2 Vital Signs: Vital Signs - 24 hr 12/30/23 18:19 Temperature 36.3 C L Temperature Source Temporal Artery Sc an Pulse Rate 115 H Respiratory Rate 25 H Respiratory Effort / Characteristics Non-Labored Sponta neous Respiratory Depth Normal Respiratory Patter n Regular Blood Pressure 150/95 H Blood Pressure Viktoria n 113 Pulse Oximetry 98 Oxygen Delivery Me thod Room Air Sepsis Recent Feve r Within 48 Hours No Sepsis New/Unexpla ined Change in Men robyn Status N/A Sepsis Action Take n by Nursing No Action Required Physical Exam: Physical Exam GENERAL: oriented to person, place, and time. appears well-developed and well- nourished. HENT: Exam performed. - Head: Normocephalic and atraumatic. EYES: Conjunctivae and EOM are normal. Right eye exhibits no discharge. Left eye exhibits no discharge. No scleral icterus. NECK: Normal range of motion. Neck supple. No JVD present. CV: Normal rate, regular rhythm, normal heart sounds and intact distal pulses. There is no peripheral edema. Palpable radial pulses bue. PULM/CHEST: Effort normal and breath sounds normal. No respiratory distress. No stridor. no wheezes. no rales. ABD: The abdomen is soft. There is no tenderness. MUSC: Mild swelling bilaterally. Palpable DP and PT pulses bilaterally. Ecchymosis to bilateral lower extremities. SKIN: Ecchymosis to the bilateral upper and lower extremities. Course Course 1921: The patient was evaluated in room C7. A complete history and physical exam was performed Cardiac monitoring: An order was placed for continuous cardiac monitoring. The monitor shows a rate of 110 with sinus tachycardia rhythm interpreted by me 2112: Vital signs stable.Labs show leukocytosis of 18.66, patient is on steroids recently. D-dimer elevated 640. VBG within normal limits. Chest x-ray within normal limits. First high-sensitivity troponin elevated at 38.4 however patient has a chronically elevated high-sensitivity troponin this is better than her high-sensitivity troponins in November. Patient has a anaphylactic reaction to iodinated contrast. Discussed case with Dr. Bala DESHPANDE hospitalist and she will evaluate the patient for admission determine if a VQ scan is necessary tomorrow morning. Medical Decision Making Laboratory Data Attestation: I reviewed the patient's lab results. 12/30/23 18:34 12/30/23 18:34 Lab Results 09/04/24 09/04/24 Range/Units 18:34 19:41 WBC 18.66 H (4.8-10.8) K/ul RBC 4.93 (4.20-5.40) M/uL Hgb 13.7 (12.0-16.0) g/dl Hct 42.2 (37.0-47.0) % MCV 85.6 (80.0-100.0) fL MCH 27.8 (25.0-34.0) pg MCHC 32.5 (32.0-36.0) g/dL RDW Std Deviation 50.3 H (36.4-46.3) fL RDW Coeff of Malick 16.7 H (11.5-14.5) % Plt Count 302 (130-400) K/uL MPV 9.2 L (9.4-12.4) fL Immature Gran % (Auto) 1.7 % Neut % (Auto) 80.6 % Lymph % (Auto) 13.8 % [place] % (Auto) 3.6 % Eos % (Auto) 0.1 % Baso % (Auto) 0.2 % Neut # (Auto) 15.04 H (1.40-6.50) K/uL Lymph # (Auto) 2.58 (1.20-3.40) K/uL [place] # (Auto) 0.67 H (0.11-0.59) K/uL Eos # (Auto) 0.02 (0.00-0.50) K/uL Baso # (Auto) 0.04 (0.00-0.20) K/uL Immature Gran # (Auto) 0.31 H (0.01-0.20) K/uL Absolute Nucleated RBC 0.02 (0.00-0.12) K/uL Nucleated RBC % (auto) 0.1 % PT 10.6 (9.0-12.0) Seconds INR 1.0 (0.9-1.1) APTT 21 (21-31) Seconds PTT Ratio 0.8 D-Dimer 640 H* (0-500) ug/L FEU VBG pH 7.46 H (7.36-7.41) VBG pCO2 48 (38-50) mmHg VBG pO2 33 mmHg VBG HCO3 34 mmol/L VBG O2 Saturation < 60.0 % VBG Base Excess 8.8 mEq/L Sodium 136 (136-145) mmol/L Potassium 3.9 (3.5-5.1) mmol/L Chloride 95 L (98-107) mmol/L Carbon Dioxide 31 (21-32) mmol/L Anion Gap 10 (3-11) BUN 32 H (6-23) mg/dl Creatinine 1.10 (0.6-1.2) mg/dl Est Cr Clr Drug Dosing Not Reportable Est GFR ( Amer) 62.3 ml/min Est GFR (Non-Af Amer) 53.8 ml/min BUN/Creatinine Ratio 29.1 H (10-20) Glucose 146 H (70-99(Fasting)) mg/dl Calcium 9.2 (8.6-10.3) mg/dl Total Bilirubin 0.4 (0.2-1.0) mg/dl AST 19 (13-39) U/L ALT 33 (7-52) U/L Alkaline Phosphatase 83 (34-104) U/L Troponin I High Sens 38.4 H (0-14) pg/ml Total Protein 6.9 (6.0-8.3) gm/dl Albumin 4.5 (3.4-5.0) gm/dl Globulin 2.4 L (2.5-4.0) gm/dl Albumin/Globulin Ratio 1.9 (0.9-2) Imaging Data Attestation: I personally reviewed and interpreted this imaging study as follows: My Impression: No significant change from the chest x-ray on December 23. Radiologist's Impression: Chest X-Ray 12/30/23 18:23 XR chest 1V not portable HISTORY: 63 years-old Female back pain/tachy acute shortness of breath with tachycardia COMPARISON: 12/24/2023 TECHNIQUE: PA view of the chest FINDINGS: Cardiac silhouette is upper limits of normal in size. Mild linear bibasilar atelectasis versus scarring redemonstrated. Chronic appearing right-sided fracture deformities of the ribs. No pneumothorax, pleural effusion or pulmonary edema. IMPRESSION: No acute process. ACT 112: Negative or not required by law. The above report was generated using voice recognition software. It may contain grammatical, syntax or spelling errors. Electronically signed by: Avi Leon M.D. 12/30/2023 7:05 PM Venous Doppler Study 12/30/23 19:31 Exam(s): US VENOUS BILATERAL LOWER EXTREMITIES EXAM: US Duplex Bilateral Lower Extremities Veins CLINICAL HISTORY: Reason for exam: ro dvt. TECHNIQUE: Real-time duplex ultrasound scan of the bilateral lower extremity veins integrating B-mode two-dimensional vascular structure, Doppler spectral analysis, color flow Doppler imaging and compression. COMPARISON: No relevant prior studies available. FINDINGS: Right deep veins: Unremarkable. No DVT in the right common femoral, femoral, proximal deep femoral or popliteal veins. The veins demonstrate normal color flow, are normally compressible, with normal phasic flow and/or augmentation response. Right superficial veins: Unremarkable. No thrombus in the visualized right great saphenous vein. Left deep veins: Unremarkable. No DVT in the left common femoral, femoral, proximal deep femoral or popliteal veins. The veins demonstrate normal color flow, are normally compressible, with normal phasic flow and/or augmentation response. Left superficial veins: Unremarkable. No thrombus in the visualized left great saphenous vein. Soft tissues: Unremarkable. IMPRESSION: No evidence of acute DVT. Electronically signed by: Nehemias Zambrano M.D. 12/30/23 20:49 PM ECG Data Attestation: I personally reviewed and interpreted this ECG as follows: Indication: chest pain and palpitations Rate (beats per minute): 111 Rhythm: sinus tachycardia Findings: no ST depression, no ST elevation or no prolonged QT Additional Comments: QRS 60 MDM Narrative 1922: The patient was evaluated in room C7. A complete history and physical exam was performed Cardiac monitoring: An order was placed for continuous cardiac monitoring. The monitor shows a rate of 110 with sinus tachycardia rhythm interpreted by me 2112: Vital signs stable.Labs show leukocytosis of 18.66, patient is on steroids recently. D-dimer elevated 640. VBG within normal limits. Chest x-ray within normal limits. First high-sensitivity troponin elevated at 38.4 however patient has a chronically elevated high-sensitivity troponin this is better than her high-sensitivity troponins in November. Patient has a anaphylactic reaction to iodinated contrast. Discussed case with Dr. Bala DESHPANDE hospitalist and she will evaluate the patient for admission determine if a VQ scan is necessary tomorrow morning. Impression & Plan Chest pain, Palpitations, D-dimer, elevated Discharge Plan Visit Data Chief Complaint: Illness Stated Complaint: COPD, BRUSING/ARMS/LT FOOT PURPLE, ARRYTHMIA ED Provider: Bhupinder Allen Discharge Problem: Chest pain, Palpitations, D-dimer, elevated Patient Disposition: Being Evaluated by Hospitalist Forms Stand Alone Forms: My [facility] Prescriptions Prescriptions: No Action ondansetron HCl 4 mg Tablet 4 mg PO Q8H PRN (Reason: NAUSEA/VOMITING) quetiapine 200 mg tablet 200 mg PO HS nystatin 100,000 unit/gram Powder 1 applic TOPICAL BID PRN (Reason: UNDER BREASTS NEEDED.) buprenorphine-naloxone 8-2 mg film 0.5 film sublingual BID enoxaparin 150 mg/mL syringe 150 mg subcut UD Rx Instructions: is trying to change this levalbuterol HCl 1.25 mg/3 mL solution for nebulization 1.25 mg INHALATION TID PRN (Reason: Shortness Of Breath Or Wheezing) alprazolam 0.5 mg tablet 0.5 mg PO TID Qty: 14 0RF Rx Instructions: pt requesting to take same time as suboxone albuterol sulfate 90 mcg/actuation HFA aerosol inhaler 2 puff INHALATION UD PRN (Reason: Shortness Of Breath Or Wheezing) bumetanide 2 mg tablet 2 mg PO BID Qty: 60 0RF Rx Instructions: morning and lunch ipratropium bromide 0.02 % solution 3 ml continuous nebulization QID PRN (Reason: shortness of breath) Qty: 75 0RF insulin glargine 100 unit/mL (3 mL) insulin pen 68 unit SUBCUT QAM Qty: 15 0RF calcium polycarbophil [Fiber (calcium polycarbophil)] 625 mg Tablet 625 mg PO QAM Qty: 30 0RF Rx Instructions: Over the counter colchicine [Colcrys] 0.6 mg Tablet 0.6 mg PO BID PRN (Reason: gout attacks) Qty: 60 0RF Rx Instructions: Take 1.2mg po x 1 followed by 0.6mg po bid x 3 days guaifenesin [Mucinex] 600 mg tablet extended release 12hr 600 mg PO Q12 Rx Instructions: OTC fluticasone propionate [Flonase Allergy Relief] 50 mcg/actuation spray,suspension 1 spray intranasal BID Qty: 0 0RF Rx Instructions: administer into each nostril Trelegy Ellipta 200-62.5-25 mcg blister with device 1 ea INHALATION QAM Qty: 60 0RF levalbuterol tartrate 45 mcg/actuation HFA aerosol inhaler 2 puff INHALATION Q4 PRN (Reason: WHEEZE) Qty: 15 0RF insulin aspart U-100 [Novolog FlexPen U-100 Insulin] 100 unit/mL (3 mL) insulin pen 0 unit subcut TIDM Ozempic Inj 0.25 mg INJ WK citalopram 10 mg tablet 10 mg PO DAILY allopurinol 100 mg tablet 300 mg PO QAM spironolactone 25 mg Tablet 25 mg PO QAM Qty: 30 0RF potassium chloride 20 mEq Tablet,Er Particles/Crystals 40 meq PO QAM Qty: 60 0RF prednisone 10 mg tablet 10 mg PO DIRECTED Qty: 14 0RF Rx Instructions: see taper instructions 3 tablets on 12/26 followed by 2 tablets for 5 days, 1 tablet for 5 days, then stop. Referrals Referrals: Radha Barboza PA-C [Primary Care Provider] -
[2023-12-30] MEDS: KETOROLAC TROMETHAMINE 15 MG/ML VIAL IV STA (21:39)
--- NOTE | 2023-12-30 22:03 | History & Physical Report ---
Date of Service December 30, 2023 Assessment & Plan (1) D-dimer, elevated: Plan: Patient with history of multiple myeloma, history of prior VTE. She is on therapeutic Lovenox but has missed several doses due to extensive bruising. She is complaining of bilateral LE pain. No DVT -Observation to medical with telemetry -Resume Lovenox - monitor bruising and CBC -VQ scan ordered for tomorrow - may be limited due to underlying lung disease (2) Chest pain: Plan: Patient with chronic elevation of troponin. Values increasing slightly on repeat here. No acute changes of ischemia present on EKG. -Telemetry monitoring -Trend troponin (3) Bilateral knee pain: Plan: Uncertain gout vs arthritis pain -Diclofenac gel added -Oxycodone PRN -Continue Allopurinol -Colchicine PRN -Complete Prednisone taper as instructed Plan Chronic medical conditions : Obesity hypoventilation syndrome -CPAP qHS Diabetes -Lantus 20u BID -ISS -Goal blood sugar 110- 140, adjust insulin as needed HFpEF - patient appears compensated -Continue Spironolactone -Continue Bumex COPD - stable -Continue Xopenex, Ipratropium, Trelegy -Continue Guaifenesin Chronic pain -Continue Buprenorphine-Naloxone BID History of Present Illness Chief Complaint: RLE pain, bruising Primary Care Provider: Radha Jabari Monzon is a 63yo female with COPD, Multiple Myeloma, prior VTE on therapeutic Lovenox 150mg daily and DM presenting from home with complaint of RLE pain as well as bruising. Patient was recently admitted to [facility] from 12/13 - 12/25/23 after presenting with SOB - she was treated for a COPD exacerbation with nebulizers and steroids and was discharged home on a Prednisone taper. Patient with hypokalemia with was repleted - Metolazone discontinued. She was also thought to have an acute flare of gout and was treated with Colchicine as well as Oxycodone. Patient was discharged home on 12/25/23. Since returning home she has had continued pain in her RLE. Also with fairly extensive bruising of her LUE and abdomen which was present in the hospital. She has also developed discoloration of her left foot and ankle as well as some discoloration of her right ankle. Patient was on Lovenox 100mg SQ BID while in the hospital which is increased from her 150mg daily home dose (home=1.5mg/kg daily, hospital dose= 1mg/kg BID). Due to her extensive bruising, she has not taken her Lovenox since being home until yesterday. Tonight she was standing at the microwave and developed some right sided/substernal chest pressure, palpitations and sensation of numbness across her back and shoulder blades. She though this was secondary to anxiety at first so she took a Xanax with no relief. Her pain was not improved with positional changes but ultimately resolved on its own. In the ER she is afebrile, tachycardic, adequate oxygenation on room air ER Course: Oxycodone 5mg po Toradol 15mg IV Allergies Allergy/AdvReac Type Severity Reaction Status Date / Time codeine Allergy Severe Anaphylaxis Verified 11/14/23 01:37 Iodinated Contrast Media Allergy Severe Anaphylaxis Verified 11/14/23 01:37 shellfish derived Allergy Severe Anaphylaxis Verified 11/14/23 01:37 tramadol Allergy Intermediate ITCHINESS Verified 11/14/23 01:37 iohexol Allergy Unknown CAN'T Verified 11/14/23 01:37 REMEMBER diphenhydramine AdvReac Severe Anxiety Verified 11/14/23 01:37 [From Benadryl] promethazine AdvReac Intermediate Anxiety Verified 11/14/23 01:37 Home Medications Medication Instructions Recorded Confirmed Type buprenorphine 8 mg-naloxone 2 mg 0.5 film sublingual BID 05/14/22 12/13/23 History sublingual film nystatin 100,000 unit/gram topical 1 applic topical BID PRN UNDER 05/14/22 12/13/23 History powder BREASTS NEEDED. ondansetron HCl 4 mg tablet 4 mg PO Q8H PRN NAUSEA/VOMITING 05/14/22 12/13/23 History quetiapine 200 mg tablet 200 mg PO HS 05/14/22 12/13/23 History levalbuterol HCl 1.25 mg/3 mL 1.25 mg inhalation TID PRN 01/16/23 12/13/23 History solution for nebulization Shortness Of Breath Or Wheezing enoxaparin 150 mg/mL subcutaneous 150 mg subcut UD 05/07/23 12/13/23 History syringe alprazolam 0.5 mg tablet 0.5 mg PO TID #14 tabs 08/02/23 12/13/23 Rx albuterol sulfate 90 mcg/actuation 2 puff inhalation UD PRN Shortness 08/30/23 12/13/23 History aerosol inhaler Of Breath Or Wheezing guaifenesin 600 mg tablet, 600 mg PO Q12 Congestion 09/11/23 12/13/23 History extended release 12 hr (Mucinex) fluticasone propionate 50 1 spray intranasal BID nasal 09/15/23 12/13/23 Rx mcg/actuation nasal congestion #0 mL spray,suspension (Flonase Allergy Relief) fluticasone fur. 200 mcg-umeclid 1 ea inhalation QAM #60 ea 09/16/23 12/13/23 Rx 62.5 mcg-vilant 25 mcg inhalat.powder (Trelegy Ellipta) levalbuterol tartrate 45 2 puff inhalation Q4 PRN WHEEZE 09/16/23 12/13/23 Rx mcg/actuation aerosol inhaler #15 grams bumetanide 2 mg tablet 2 mg PO BID #60 tabs 09/29/23 12/13/23 Rx insulin glargine 100 unit/mL (3 68 unit (0.68 mL) subcut QAM #15 mL 10/17/23 12/13/23 Rx mL) subcutaneous pen ipratropium bromide 0.02 % 3 ml continuous nebulization QID 10/17/23 12/13/23 Rx solution for inhalation PRN shortness of breath #75 mL calcium polycarbophil 625 mg 625 mg PO QAM #30 tabs 10/30/23 12/13/23 Rx tablet (Fiber (calcium polycarbophil)) colchicine 0.6 mg tablet (Colcrys) 0.6 mg PO BID PRN gout attacks #60 10/30/23 12/13/23 Rx tabs Ozempic Inj 0.25 mg INJ WK 11/07/23 12/13/23 History insulin aspart U-100 100 unit/mL 0 unit subcut TIDM 11/07/23 12/13/23 History (3 mL) subcutaneous pen (Novolog FlexPen U-100 Insulin aspart) allopurinol 100 mg tablet 300 mg PO QAM 12/13/23 12/13/23 History citalopram 10 mg tablet 10 mg PO DAILY 12/13/23 12/13/23 History potassium chloride 20 mEq 40 meq (2 x 20 mEq) PO QAM #60 tabs 12/25/23 Rx tablet,extended release(part/cryst) prednisone 10 mg tablet 10 mg PO DIRECTED #14 tabs 12/25/23 Rx spironolactone 25 mg tablet 25 mg PO QAM #30 tabs 12/25/23 Rx Past Med/Surg History Problem List (Updated 12/31/23 @ 00:37 by Riya Mckenna DO) D-dimer, elevated (Acute) Palpitations (Acute) Chest pain (Acute) Contusion of left foot (Acute) Swelling of left foot (Acute) Bilateral knee pain CHF exacerbation (Acute) COPD exacerbation (Acute) Chest pain Right knee pain DM II (diabetes mellitus, type II), controlled Elevated troponin (Acute) Acute and chronic respiratory failure with hypoxia (Acute) Acute exacerbation of chronic obstructive pulmonary disease (Acute) Gout Leukocytosis (Acute) Acute hypokalemia (Acute) Multiple myeloma Last chemotherapy 2016 Follows with medical oncology in [facility] Diabetes Hypokalemia Heart failure with preserved ejection fraction Generalized anxiety disorder Chronic respiratory failure with hypoxia and hypercapnia Tobacco abuse counseling Moderate persistent asthma Constipation History of pulmonary embolism Obesity hypoventilation syndrome Chronic anticoagulation Acute bronchitis Pulmonary vascular congestion COPD (chronic obstructive pulmonary disease) (Acute) Medical History Acute exacerbation of chronic obstructive pulmonary disease Acute heart failure with preserved ejection fraction (HFpEF) Acute exacerbation of chronic obstructive pulmonary disease Tobacco abuse Opiate dependence Asthma Surgical History No pertinent past surgical history Family History Sister Asthma Social History Smoking Status: Current every day smoker Tobacco Type: Cigarettes Cigarettes Per Day: 1 cigarette per day; Second Hand Exposure: No; Do You Dip or Chew Tobacco: No; Hx Alcohol Use: No Hx Substance Use: No Preferred Language: Maltese Communication Ability: Effective Jacquard Fixer Required: No Beliefs That Will Affect Care: None Current Living Situation: Family Current Living Situation Comment: lives with sister temporarily Feels Safe at Home: Yes Assistive Devices: CPAP and Oxygen - Continuous Review of Systems Review of Systems: All systems reviewed & are unremarkable except as noted in HPI & below Physical Exam Physical Exam: General: patient anxious, sitting in chair, NAD Skin: extensive bruising noted on RUE at arm and forearm, bruising on abdomen, no palpable collection or hematoma, discoloration of bilateral ankles and toes of left foot HEENT: NC/AT, PERRL, EOMI, anicteric sclera, conjunctiva without injection, external ear normal to inspection and nontender, nares patent, moist mucus membranes, dentition intact, no oropharyngeal lesions, neck supple, trachea midline, no LAD, no thyromegaly, no JVD Heart: +S1/S2, regular, tachycardic, no m/r/g Lungs: equal air entry bilaterally, scattered end-expiratory wheezes Abd: +BS, soft, NT/ND, no masses/organomegaly/ascites Ext: cool extremities, 1+ pitting edema of bilateral LE R>L, discoloration of ankles, left 2nd toe with some dried blood Neuro: nonfocal, patient AA&O x 4, speech intact, no facial droop, moving all extremities on command with equal strength 5/5 Results & Data Results & Data Vital Signs (Past 12 Hours) Vital Signs Temp Pulse Pulse Resp BP BP Pulse Ox 12/30/23 21:43 102 H 20 136/99 98 12/30/23 18:19 36.3 C L 115 H 25 H 150/95 H 98 O2 Del Method 12/30/23 21:43 Room Air 12/30/23 18:19 Room Air Laboratory Results Laboratory Results WBC 18.66 K/ul (4.8-10.8) H 12/30/23 18:34 RBC 4.93 M/uL (4.20-5.40) 12/30/23 18:34 Hgb 13.7 g/dl (12.0-16.0) 12/30/23 18:34 Hct 42.2 % (37.0-47.0) 12/30/23 18:34 MCV 85.6 fL (80.0-100.0) 12/30/23 18:34 MCH 27.8 pg (25.0-34.0) 12/30/23 18:34 MCHC 32.5 g/dL (32.0-36.0) 12/30/23 18:34 RDW Std Deviation 50.3 fL (36.4-46.3) H 12/30/23 18:34 RDW Coeff of Malick 16.7 % (11.5-14.5) H 12/30/23 18:34 Plt Count 302 K/uL (130-400) 12/30/23 18:34 MPV 9.2 fL (9.4-12.4) L 12/30/23 18:34 Immature Gran % (Auto) 1.7 % 12/30/23 18:34 Neut % (Auto) 80.6 % 12/30/23 18:34 Lymph % (Auto) 13.8 % 12/30/23 18:34 Ralls % (Auto) 3.6 % 12/30/23 18:34 Eos % (Auto) 0.1 % 12/30/23 18:34 Baso % (Auto) 0.2 % 12/30/23 18:34 Neut # (Auto) 15.04 K/uL (1.40-6.50) H 12/30/23 18:34 Lymph # (Auto) 2.58 K/uL (1.20-3.40) 12/30/23 18:34 Ralls # (Auto) 0.67 K/uL (0.11-0.59) H 12/30/23 18:34 Eos # (Auto) 0.02 K/uL (0.00-0.50) 12/30/23 18:34 Baso # (Auto) 0.04 K/uL (0.00-0.20) 12/30/23 18:34 Immature Gran # (Auto) 0.31 K/uL (0.01-0.20) H 12/30/23 18:34 Absolute Nucleated RBC 0.02 K/uL (0.00-0.12) 12/30/23 18:34 Nucleated RBC % (auto) 0.1 % 12/30/23 18:34 PT 10.6 Seconds (9.0-12.0) 12/30/23 18:34 INR 1.0 (0.9-1.1) 12/30/23 18:34 APTT 21 Seconds (21-31) 12/30/23 18: PTT Ratio 0.8 12/30/23 18:34 D-Dimer 640 ug/L FEU (0-500) H* 12/30/23 18:34 VBG pH 7.46 (7.36-7.41) H 12/30/23 19:41 VBG pCO2 48 mmHg (38-50) 12/30/23 19:41 VBG pO2 33 mmHg 12/30/23 19:41 VBG HCO3 34 mmol/L 12/30/23 19:41 VBG O2 Saturation < 60.0 % 12/30/23 19:41 VBG Base Excess 8.8 mEq/L 12/30/23 19:41 Sodium 136 mmol/L (136-145) 12/30/23 18:34 Potassium 3.9 mmol/L (3.5-5.1) 12/30/23 18:34 Chloride 95 mmol/L (98-107) L 12/30/23 18:34 Carbon Dioxide 31 mmol/L (21-32) 12/30/23 18:34 Anion Gap 10 (3-11) 12/30/23 18:34 BUN 32 mg/dl (6-23) H 12/30/23 18:34 Creatinine 1.10 mg/dl (0.6-1.2) 12/30/23 18:34 Est Cr Clr Drug Dosing Not Reportable 12/30/23 18:34 Est GFR ( Amer) 62.3 ml/min 12/30/23 18:34 Est GFR (Non-Af Amer) 53.8 ml/min 12/30/23 18:34 BUN/Creatinine Ratio 29.1 (10-20) H 12/30/23 18:34 Glucose 146 mg/dl (70-99(Fasting)) H 12/30/23 18:34 Calcium 9.2 mg/dl (8.6-10.3) 12/30/23 18:34 Total Bilirubin 0.4 mg/dl (0.2-1.0) 12/30/23 18:34 AST 19 U/L (13-39) 12/30/23 18:34 ALT 33 U/L (7-52) 12/30/23 18:34 Alkaline Phosphatase 83 U/L (34-104) 12/30/23 18:34 Troponin I High Sens 43.4 pg/ml (0-14) H 12/30/23 20:55 Total Protein 6.9 gm/dl (6.0-8.3) 12/30/23 18:34 Albumin 4.5 gm/dl (3.4-5.0) 12/30/23 18:34 Globulin 2.4 gm/dl (2.5-4.0) L 12/30/23 18:34 Albumin/Globulin Ratio 1.9 (0.9-2) 12/30/23 18:34 Impressions Chest X-Ray 12/30/23 18:23 XR chest 1V not portable HISTORY: 63 years-old Female back pain/tachy acute shortness of breath with tachycardia COMPARISON: 12/24/2023 TECHNIQUE: PA view of the chest FINDINGS: Cardiac silhouette is upper limits of normal in size. Mild linear bibasilar atelectasis versus scarring redemonstrated. Chronic appearing right-sided fracture deformities of the ribs. No pneumothorax, pleural effusion or pulmonary edema. IMPRESSION: No acute process. ACT 112: Negative or not required by law. The above report was generated using voice recognition software. It may contain grammatical, syntax or spelling errors. Electronically signed by: Avi Leon M.D. 12/30/2023 7:05 PM Venous Doppler Study 12/30/23 19:31 Exam(s): US VENOUS BILATERAL LOWER EXTREMITIES EXAM: US Duplex Bilateral Lower Extremities Veins CLINICAL HISTORY: Reason for exam: ro dvt. TECHNIQUE: Real-time duplex ultrasound scan of the bilateral lower extremity veins integrating B-mode two-dimensional vascular structure, Doppler spectral analysis, color flow Doppler imaging and compression. COMPARISON: No relevant prior studies available. FINDINGS: Right deep veins: Unremarkable. No DVT in the right common femoral, femoral, proximal deep femoral or popliteal veins. The veins demonstrate normal color flow, are normally compressible, with normal phasic flow and/or augmentation response. Right superficial veins: Unremarkable. No thrombus in the visualized right great saphenous vein. Left deep veins: Unremarkable. No DVT in the left common femoral, femoral, proximal deep femoral or popliteal veins. The veins demonstrate normal color flow, are normally compressible, with normal phasic flow and/or augmentation response. Left superficial veins: Unremarkable. No thrombus in the visualized left great saphenous vein. Soft tissues: Unremarkable. IMPRESSION: No evidence of acute DVT. Electronically signed by: Nehemias Zambrano M.D. 12/30/23 20:49 PM ECG Additional Comments: EKG with ST at 111bpm, normal axis, NV=212, QRS=60, NNc=740, no acute ischemic changes, some PACs present Similar to prior study Code Status & VTE Plan VTE Prophylaxis Plan VTE Prophylaxis will be ordered: Yes PG Care Time/CCT Total # of Minutes Spent Total Time Spent with Patient: Total time spent is greater than 50% in coordination of care (as documented) at patient's floor/unit and/or counseling patient: Coding Level of Care Code 18106 INT INP/OBS CARE 3/75MIN Diagnoses D-dimer, elevated R79.89 Chest pain R07.9 Bilateral knee pain M25.561; M25.562
[2023-12-30] MEDS: oxyCODONE HCL IR 5 MG TAB (IMMEDIATE RELEASE) PO STA (23:31)
[2023-12-30] MEDS ORDERED: Patient's HEIGHT &/or WEIGHT Needed STA (23:45)
[2023-12-30] MEDS ORDERED: GLUCOSE 10 TAB/TUBE PO PRN (23:59)
[2023-12-30] MEDS ORDERED: ONDANSETRON INJ 2 MG/ML 2 ML VIAL IV PRN (23:59)
[2023-12-30] MEDS ORDERED: ACETAMINOPHEN 325 MG TAB PO PRN (23:59)
[2023-12-30] MEDS ORDERED: CARBOHYDRATES FOR HYPOGLYCEMIA PO PRN (23:59)
[2023-12-30] MEDS ORDERED: GLUCOSE 40% GEL 15 GM TUBE PO PRN (23:59)
[2023-12-30] MEDS ORDERED: DEXTROSE 50% 50 ML SYRINGE IV PRN (23:59)
[2023-12-30] MEDS ORDERED: GLUCAGON FOR INJ 1 MG VIAL SQ PRN (23:59)
[2023-12-31] MEDS ORDERED: ALBUTEROL HFA 8 GM INHALER INH PRN (00:47)
[2023-12-31] MEDS ORDERED: COLCHICINE 0.6 MG TAB PO PRN (00:47)
[2023-12-31] MEDS: LANTUS PER UNIT CHARGE SQ SCH (00:50)
[2023-12-31] MEDS: ENOXAPARIN 150 MG/ML SYR SQ SCH (00:51)
[2023-12-31] MEDS: DICLOFENAC SOD 1% GEL 100 GM TUBE EXT SCH (00:52)
[2023-12-31] MEDS ORDERED: oxyCODONE HCL IR 5 MG TAB (IMMEDIATE RELEASE) PO PRN (00:56)
[2023-12-31] MEDS: ALPRAZolam 0.5 MG TABLET PO SCH (05:56)
[2023-12-31] MEDS: ALPRAZolam 0.5 MG TABLET PO STA (06:02)
[2023-12-31] MEDS: IPRATROPIUM BROMIDE NEB SOLN 0.02% 0.5MG/2.5ML VIAL INH PRN (06:07)
[2023-12-31] MEDS: LEVALBUTEROL 1.25 MG/3 ML NEB INH PRN (06:07)
[2023-12-31 06:22] LABS: Hematocrit (blood only) 44.2 % (37.0-47.0); Hemoglobin 13.5 g/dl (12.0-16.0); Mean Corpuscular Hemoglobin 26.9 pg (25.0-34.0); Mean Corpuscular Hgb Conc 30.5 g/dL (32.0-36.0); Mean Corpuscular Volume 88.2 fL (80.0-100.0); Mean Platelet Volume 9.4 fL (9.4-12.4); Nucleated RBC # (auto) 0.02 K/uL (0.00-0.12); Nucleated RBC % (auto) 0.1 %; Platelet Count 290 K/uL (130-400); RDW Standard Deviation 53.5 fL (36.4-46.3); Red Blood Count 5.01 M/uL (4.20-5.40); White Blood Count 13.75 K/ul (4.8-10.8)
[2023-12-31 06:29] LABS: BUN Creatinine Ratio 27.6 (10-20); Calcium 9.1 mg/dl (8.6-10.3); Creatinine Clr Calc Pharmacy 71.1 ml/min; Est GFR (African American) 82.8 ml/min; Est GFR (Non-African American) 71.4 ml/min; Potassium 3.7 mmol/L (3.5-5.1)
[2023-12-31 06:35] LABS: Troponin I High Sensitivity 36.7 pg/ml (0-14)
[2023-12-31] MEDS: UMECLIDINIUM/VILANTEROL 62.5/25MCG 7 PUFFS/INHALER INH SCH (08:33)
[2023-12-31] MEDS: FLUTICASONE FUROATE 200MCG 14 PUFFS/INHALER INH SCH (08:34)
[2023-12-31] MEDS: COLCHICINE 0.6 MG TAB PO SCH ×2 (08:35→21:03)
[2023-12-31] MEDS: guaiFENesin 600 MG TABCR PO SCH (08:36)
[2023-12-31] MEDS: BUPRENORPHINE/NALOXONE 8/2 MG TAB SL SCH (08:36)
[2023-12-31] MEDS: FLUTICASONE PROPIONATE NA SPR 16 GM BTL SCH (08:36)
[2023-12-31] MEDS: SPIRONOLACTONE 25 MG TAB PO SCH (08:36)
[2023-12-31] MEDS: predniSONE 10 MG TABLET PO SCH (08:37)
[2023-12-31] MEDS: BUMETANIDE 1 MG TAB PO SCH (08:38)
[2023-12-31] MEDS: CITALOPRAM 20 MG TAB PO SCH ×2 (08:38→21:03)
[2023-12-31] MEDS: allopurinoL 300 MG TAB PO SCH (08:39)
[2023-12-31] MEDS: POTASSIUM CHLORIDE CRTAB 20 MEQ TABCR PO SCH (08:45)
[2023-12-31] MEDS: INSULIN ASPART PER UNIT CHARGE SC SCH (08:51)
[2023-12-31] MEDS ORDERED: NON-FORMULARY MEDICATION (Fluticasone-Umeclidin-Vilanter [Trelegy Ellipta] 200-62.5-25 mcg INH SCH (09:00)
[2023-12-31] MEDS ORDERED: Nursing to Pharmacy Communication SCH ×2 (09:30→11:30)
[2023-12-31] MEDS ORDERED: ACETAMINOPHEN 650 MG SUPP PR STA (10:43)
[2023-12-31] MEDS ORDERED: ACETAMINOPHEN 325 MG TAB PO PRN ×2 (10:44→12:13)
--- NOTE | 2023-12-31 10:52 | Electrocardiogram Report ---
Test Reason : Blood Pressure : */* mmHG Vent. Rate : 111 BPM Atrial Rate : 111 BPM P-R Int : 136 ms QRS Dur : 60 ms QT Int : 314 ms P-R-T Axes : -13 -2 -14 degrees QTcB Int : 427 ms Sinus tachycardia with Premature atrial complexes possible Inferior infarct (cited on or before 16-Aug-2023) Cannot rule out Anterior infarct (cited on or before 28-Jul-2023) Abnormal ECG When compared with ECG of 13-Dec-2023 18:36, QRS duration has decreased Confirmed by Nelson Kenny ([id number]) on 12/31/2023 10:51:58 AM Referred By: REFERRED SELF Confirmed By: Nelson Kenny
--- NOTE | 2023-12-31 11:03 | Nuclear Medicine Report ---
NM pul perfusion CLINICAL HISTORY: Atypical chest pain, elevated D dimer. COMPARISON STUDY: Chest 12/30/2023. TECHNIQUE: Immediately following the intravenous administration of 5.2 mCi of technetium 99 M MAA for the perfusion scan, anterior, oblique, lateral, and posterior views of the chest were obtained. FINDINGS: Mild prominence of the cardiac silhouette. No segmental perfusion defects identified. IMPRESSION: Findings suggest a very low probability scan. ACT 112: Negative or not required by law. Electronically signed by: Chester Salas M.D. 12/31/2023 11:02 AM
[2023-12-31 12:37] LABS: C Reactive Protein 0.65 mg/dl (0-0.5)
[2023-12-31] MEDS: KETOROLAC TROMETHAMINE 15 MG/ML VIAL IV ONE (12:56)
[2023-12-31] MEDS: oxyCODONE HCL IR 5 MG TAB (IMMEDIATE RELEASE) PO PRN (13:59)
--- NOTE | 2023-12-31 14:56 | Hospitalist Progress Note ---
Date of Service December 31, 2023 Assessment & Plan (1) Chest pain: Plan: 63-year-old woman with a history of VTE on chronic enoxaparin presented with chest pain and elevated D-dimer, lower extremity venous duplex was negative for DVT, she did undergo VQ scan which was very low probability for PE. She is not hypoxic and chest pain has resolved. There is no evidence of acute coronary syndrome she does have chronically mildly elevated troponin but is unchanged from baseline. continue her usual enoxaparin 1.5 mg/kg every 24 hours she has some extensive ecchymoses these developed during last hospitalization when she was on 1 mg/kg SQ every 12 hours. PT and PTT have been normal, platelets are normal. not clear to me that there are any new ecchymoses since then. Will check fibrinogen level and add a course of empiric vitamin C orally (2) Bilateral knee pain: Plan: right greater than left acute on chronic knee pain, there is evidence of some inflammation with respect to warmth and tenderness however ESR and CRP were obtained and her very normal. She has recently been treated for gout and has had presumed gout flare in her knees. She also had a flare of her left ankle recently. Uric acid was severely elevated initially around 14 since then she has been started on allopurinol and more recently came down to around 8. Current pain could certainly be a mild gout flare however - low inflammatory markers and she is still on 20 mg of prednisone, has not significantly responded to NSAID and colchicine thus far. received 1 dose of IV ketorolac 15 mg yesterday we will repeat that today, caution with her anticoagulation and renal function colchicine 0.6 mg twice daily continue prednisone 20 mg daily which is on her tapering schedule from last COPD exacerbation diclofenac gel continue her usual Suboxone which is used for pain and she is tapering off of long-term, added oxycodone 5 mg as needed continue allopurinol check uric acid to see whether current dose is adequate considered alternate diagnoses could be osteoarthritis related to an old right knee injury, could be pseudogout, could be another type of inflammatory arthritis, does not look concerning for septic joint based on physical exam, lab findings, lack of fever or elevated inflammatory markers. Plan both lower legs are cool and purplish, feet are not painful however, DP pulses intact. Much of the discoloration seems related to ecchymosis. Monitor exam Chronic medical conditions : chronic respiratory failure with ELEUTERIO/OHScontinue noninvasive ventilation, uses trilogy ventilator nocturnally at home Diabetes -Lantus 20u BID -ISS -Goal blood sugar 110- 140, adjust insulin as needed HFpEF - patient appears compensated -Continue Spironolactone -Continue Bumex COPD - stable, not in exacerbation -Continue Xopenex, Ipratropium, Trelegy -Continue Guaifenesin Chronic pain -Continue Buprenorphine-Naloxone BID. she is in the process of tapering off of this as outpatient anxiety, benzodiazepine dependencecontinue citalopram which she has found helpful for her generalized anxiety, continue Xanax as needed, continue quetiapine at bedtime Admission and Anticipated Discharge Date Admission Date: December 30, 2023 Subjective Admitted with a chest pain episode, severe and bilateral anterior chest, has resolved had been off lovenox few days because of extensive bruising CP resolved, no dyspnea or wheezing, edema under good control current problem is severe R>L knee pain, she thinks is gout flare. recently also had flare of L ankle with redness pain and swelling this resolved Physical Exam 2 Physical Exam: PHYSICAL EXAMINATION Last 24h vital signs reviewed, see documentation in flowsheet General: comfortable appearing, no distress, sitting up in chair HEENT: Normocephalic, atraumatic, pupils round and equal, sclerae anicteric, no conjunctival injection, moist mucus membranes. cushingoid appearance has progressed since I last saw her Lungs: Normal respiratory effort. Clear to auscultation bilaterally. No RRW Heart: Regular rate and rhythm, no murmurs. No JVD Abdomen: Soft, nontender, nondistended. Bowel sounds present. Extremities: extensive very old appearing ecchymosis of right upper extremity dark purpleish and flat, some erythema of extensor surfaces of fingers and MCPs however no warmth tenderness or bogginess, both lower extremities are cool to touch below the knee with some general ready purpleish discoloration, DP pulses are 2+, extensive scattered ecchymosis especially left foot both knees are warm to touch especially the right 1 which is mildly tender she tolerates about 40 degrees worth of range of motion, no apparent effusion Neuro: Alert and oriented x 4, face symmetric, moves 4 extremities well Psych: Normal affect and behavior Results & Data Results & Data Vital Signs (Past 12 Hours) Vital Signs Temp Pulse Pulse Resp BP Pulse Ox O2 Del Method 12/31/23 14:22 100 H 12/31/23 11:24 37.0 C 107 H 20 111/68 95 Room Air 12/31/23 08:00 Room Air 12/31/23 07:57 36.6 C 88 18 112/73 90 Room Air 12/31/23 07:18 94 H 12/31/23 06:07 99 H 18 93 Room Air 12/31/23 04:20 12 99 12/31/23 03:06 154 H 12/31/23 02:57 92 H 18 132/80 93 CPAP O2 Flow Rate 12/31/23 14:22 12/31/23 11:24 12/31/23 08:00 12/31/23 07:57 12/31/23 07:18 12/31/23 06:07 12/31/23 04:20 2 12/31/23 03:06 12/31/23 02:57 1 Laboratory Results 12/31/23 05:27 12/31/23 05:27 PG Care Time/CCT Total # of Minutes Spent Total Time Spent with Patient: Total time spent is greater than 50% in coordination of care (as documented) at patient's floor/unit and/or counseling patient: Coding Level of Care Code 29655 SUB INP/OBS CARE 2/35MIN Diagnoses Chest pain R07.9 Bilateral knee pain M25.561; M25.562
[2023-12-31] MEDS: ASCORBIC ACID 500 MG TAB PO SCH (14:59)
[2023-12-31] MEDS: QUEtiapine FUMARATE 200 MG TAB PO SCH (21:04)
[2024-01-01 07:21] LABS: Fibrinogen 362 mg/dl (184-400)
[2024-01-01] MEDS: BUPRENORPHINE/NALOXONE 8/2 MG TAB SL SCH (09:06)
[2024-01-01] MEDS: BUPRENORPHINE/NALOXONE 8/2 MG TAB SL ONE (10:09)
[2024-01-01] MEDS: ALPRAZolam 0.5 MG TABLET PO SCH (12:17)
--- NOTE | 2024-01-01 14:34 | Hospitalist Progress Note ---
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 She is not hypoxic and chest pain has resolved. There is no evidence of acute coronary syndrome she does have chronically mildly elevated troponin but is unchanged from baseline. continue her usual enoxaparin 1.5 mg/kg every 24 hours she has some extensive ecchymoses these developed during last hospitalization when she was on 1 mg/kg SQ every 12 hours. PT and PTT have been normal, platelets are normal. not clear to me that there are any new ecchymoses since then. Will check fibrinogen level and add a course of empiric vitamin C orally (2) Bilateral knee pain: Plan: right greater than left acute on chronic knee pain, there is evidence of some inflammation with respect to warmth and tenderness however ESR and CRP were obtained and her very normal. She has recently been treated for gout and has had presumed gout flare in her knees. She also had a flare of her left ankle recently. Uric acid was severely elevated initially around 14 since then she has been started on allopurinol and more recently came down to around 8. Current pain could certainly be a mild gout flare however - low inflammatory markers and she is still on 20 mg of prednisone, has not significantly responded to NSAID and colchicine thus far. received dose of ketorolac 12/29 and 12/30, caution with her anticoagulation and renal function colchicine 0.6 mg twice daily - continue, discussed daily maintenance dosing with her which I think will be necessary as prednisone tapers continue prednisone 20 mg daily which is on her tapering schedule from last COPD exacerbation diclofenac gel continue her usual Suboxone which is used for pain and she is tapering off of long-term, added oxycodone 5 mg as needed continue allopurinol - uric acid only 6.4 currently well-controlled considered alternate diagnoses could be osteoarthritis related to an old right knee injury, could be pseudogout, could be another type of inflammatory arthritis, does not look concerning for septic joint based on physical exam, lab findings, lack of fever or elevated inflammatory markers. Plan Chronic medical conditions : chronic respiratory failure with ELEUTERIO/OHScontinue noninvasive ventilation, uses trilogy ventilator nocturnally at home Diabetes -Lantus 20u BID -ISS -Goal blood sugar 110- 140, adjust insulin as needed HFpEF - patient appears compensated -Continue Spironolactone -Continue Bumex COPD - stable, not in exacerbation -Continue Xopenex, Ipratropium, Trelegy -Continue Guaifenesin Chronic pain -Continue Buprenorphine-Naloxone BID. she is in the process of tapering off of this as outpatient anxiety, benzodiazepine dependencecontinue citalopram which she has found helpful for her generalized anxiety, continue Xanax as needed, continue quetiapine at bedtime - increase citalopram to 20 mg at at bedtime planning for home in a.m. Admission and Anticipated Discharge Date Admission Date: December 30, 2023 Subjective right greater than left knee pain persists however improved from yesterday and she has been walking around the halls legs were very cold last night, however, today they are warm and well-perfused including her feet Physical Exam 2 Physical Exam: PHYSICAL EXAMINATION Last 24h vital signs reviewed, see documentation in flowsheet General: was lying in bed earlier now sitting in the chair HEENT: Normocephalic, atraumatic, pupils round and equal, sclerae anicteric, no conjunctival injection, moist mucus membranes. cushingoid appearance has progressed since I last saw her Lungs: Normal respiratory effort. Clear to auscultation bilaterally. No RRW Heart: Regular rate and rhythm, no murmurs. No JVD Abdomen: Soft, nontender, nondistended. Bowel sounds present. Extremities: extensive very old appearing ecchymosis of right upper extremity dark purplish and flat, some erythema of extensor surfaces of fingers and MCPs however no warmth tenderness or bogginess, both lower extremities are now warm and well-perfused, DP pulses are 2+, extensive scattered ecchymosis especially left foot right greater than left knee warmth and erythema has resolved, no effusions, seems to tolerate greater range of motion on the right today Neuro: Alert and oriented x 4, face symmetric, moves 4 extremities well. has baseline tremor, unchanged Psych: Normal affect and behavior Results & Data Results & Data Vital Signs (Past 12 Hours) Vital Signs Temp Pulse Pulse Resp BP Pulse Ox O2 Del Method 01/01/24 13:45 103 H 01/01/24 11:19 36.6 C 95 H 20 119/82 97 Room Air 01/01/24 11:14 Room Air 01/01/24 08:18 36.5 C 97 H 20 128/80 97 Room Air 01/01/24 07:03 93 H 01/01/24 03:19 12 O2 Flow Rate 01/01/24 13:45 01/01/24 11:19 01/01/24 11:14 01/01/24 08:18 01/01/24 07:03 01/01/24 03:19 2 Laboratory Results 12/31/23 05:27 12/31/23 05:27 PG Care Time/CCT Total # of Minutes Spent Total Time Spent with Patient: Total time spent is greater than 50% in coordination of care (as documented) at patient's floor/unit and/or counseling patient: Coding Level of Care Code 35400 SUB INP/OBS CARE 2/35MIN Diagnoses Chest pain R07.9 Bilateral knee pain M25.561; M25.562
[2024-01-01] MEDS: CITALOPRAM 20 MG TAB PO SCH (20:01)
[2024-01-02 07:55] VITALS: BP 121/79; RESP 18; TEMP 97.5; O2SAT 93
[2024-01-02] MEDS: BUPRENORPHINE/NALOXONE 8/2 MG TAB SL SCH (09:08)
[2024-01-02 10:47] LABS: BUN Creatinine Ratio 30.1 (10-20); Calcium 8.6 mg/dl (8.6-10.3); Creatinine Clr Calc Pharmacy 85.4 ml/min; Est GFR (African American) 102.3 ml/min; Est GFR (Non-African American) 88.3 ml/min; Potassium 3.4 mmol/L (3.5-5.1)
[2024-01-02 12:33] VITALS: PULSE 77
--- NOTE | 2024-01-03 15:31 | Discharge Summary ---
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 She is not hypoxic and chest pain has resolved. There is no evidence of acute coronary syndrome she does have chronically mildly elevated troponin but is unchanged from baseline. continue her usual enoxaparin 1.5 mg/kg every 24 hours. considering changing to apixaban as outpatient. she has some extensive ecchymoses these developed during last hospitalization when she was on 1 mg/kg SQ every 12 hours. PT and PTT have been normal, platelets are normal, fibrinogen normal. I do not think that that there are any new ecchymoses since then. add a course of empiric vitamin C orally x 1 month to see if it helps (2) Bilateral knee pain: Acute on chronic gout R>L knee right greater than left acute on chronic knee pain, there was evidence of some inflammation with respect to warmth and tenderness however ESR and CRP were obtained and her very normal. She has recently been treated for gout and has had presumed gout flare in her knees. She also had a flare of her left ankle recently. Uric acid was severely elevated initially around 14 earlier this year, since then she has been started on allopurinol and more recently came down to around 8. knee inflammation/swelling resolved and pain improved with gout treatment: received small dose of ketorolac 12/29 and 12/30, caution with her anticoagulation and renal function colchicine 0.6 mg twice daily while in hospital - started 0.6 mg daily maintenance dosing, which I think will be necessary as prednisone tapers continue prednisone tapering schedule from last COPD exacerbation continue allopurinol - uric acid only 6.4 currently well-controlled would refer to [facility] if problematic to manage despite above measures Plan Chronic medical conditions : chronic respiratory failure with ELEUTERIO/OHScontinue noninvasive ventilation, uses trilogy ventilator nocturnally at home Diabetes -resume home regimen HFpEF - remained well compensated -Continue Spironolactone - potassium has been low normal in hospital on 40 meq per day replacement and 25 mg spironolactone. Looks like she could use slightly more diuretic so can increase spironolactone to 50 mg daily if potassium remaining low/low normal -Continue Bumex COPD - stable, not in exacerbation -Continue Xopenex, Ipratropium, Trelegy -Continue Guaifenesin Chronic pain -Continue Buprenorphine-Naloxone. she is in the process of tapering off of this as outpatient anxiety, benzodiazepine dependencecontinue citalopram which she has found helpful for her generalized anxiety, continue Xanax as needed, continue quetiapine at bedtime - increased citalopram to 20 mg at at bedtime Notes For Next Care Provider recommend weekly potassium check until diuretic/potassium doses stable increase spironolactone to 50 mg daily if K remaining low/low normal she has had serial hospitalizations with frequent high dose steroids in past year. continue tapering prednisone, however, she is at high risk of secondary adrenal insufficiency recommend stepping down to 5 mg daily for minimum two weeks or more likely a month, then decreasing to 2.5 mg daily Medication Changes From Visit celexa increased to 20 mg colchicine 0.6 mg po daily added Admission HPI Per Admitting Provider Janae Monzon is a 63yo female with COPD, Multiple Myeloma, prior VTE on therapeutic Lovenox 150mg daily and DM presenting from home with complaint of RLE pain as well as bruising. Patient was recently admitted to [facility] from 12/13 - 12/25/23 after presenting with SOB - she was treated for a COPD exacerbation with nebulizers and steroids and was discharged home on a Prednisone taper. Patient with hypokalemia with was repleted - Metolazone discontinued. She was also thought to have an acute flare of gout and was treated with Colchicine as well as Oxycodone. Patient was discharged home on 12/25/23. Since returning home she has had continued pain in her RLE. Also with fairly extensive bruising of her LUE and abdomen which was present in the hospital. She has also developed discoloration of her left foot and ankle as well as some discoloration of her right ankle. Patient was on Lovenox 100mg SQ BID while in the hospital which is increased from her 150mg daily home dose (home=1.5mg/kg daily, hospital dose= 1mg/kg BID). Due to her extensive bruising, she has not taken her Lovenox since being home until yesterday. Tonight she was standing at the microwave and developed some right sided/substernal chest pressure, palpitations and sensation of numbness across her back and shoulder blades. She though this was secondary to anxiety at first so she took a Xanax with no relief. Her pain was not improved with positional changes but ultimately resolved on its own. In the ER she is afebrile, tachycardic, adequate oxygenation on room air ER Course: Oxycodone 5mg po Toradol 15mg IV Discharge Exam PHYSICAL EXAMINATION Last 24h vital signs reviewed, see documentation in flowsheet General: awake and alert up in chair, has been walking in hallways per nursing HEENT: Normocephalic, atraumatic, pupils round and equal, sclerae anicteric, no conjunctival injection, moist mucus membranes. cushingoid appearance has progressed since I last saw her Lungs: Normal respiratory effort. Heart: deferred Abdomen: ND Extremities: extensive very old appearing ecchymosis of right upper extremity dark purplish and flat, some erythema of extensor surfaces of fingers and MCPs however no warmth tenderness or bogginess, both lower extremities are wwp with mild ankle and foot edema, extensive scattered ecchymosis especially left foot knees are no longer warm or erythematous and no joint effusions Neuro: Alert and oriented x 4, face symmetric, moves 4 extremities well. has baseline tremor, unchanged Psych: Normal affect and behavior Discharge Plan Discharge Items Patient Disposition: Home - Self-Care Reason For Visit: CHEST PAIN, ELEVATED D DIMER Discharge Diagnosis: chest pain, gout flare Activity: Resume your previous activity Non-emergency contact: Primary Care Provider Call non-emergency contact if: you have any medication questions and your symptoms worsen Follow-up/Referrals: Radha Barboza PA-C [Primary Care Provider] - (PLEASE CALL YOUR PRIMARY CARE PROVIDER TO SCHEDULE A HOSPITAL DISCHARGE FOLLOW-UP APPOINTMENT IN 7-10 DAYS) Diet: Carb Consistent or DM2 and Low Sodium (2gm) Addtl Attending Provider Instructions: Continue your enoxaparin per usual Follow up with primary care and Dr. Biggs (hematology) Take colchicine 0.6 mg daily (in addition to allopurinol) to prevent gout flares If you have a flare you can take 2 tabs (NOT three) x 1 followed by 1 tab twice a day for three days as per prior instructions The allopurinol is doing a good job at the current dose - uric acid level was in normal range this week If the gout is hard to manage despite colchicine and allopurinol we should make a Rheumatology referral Continue your prednisone taper, however, once you complete the 10 mg doses, go down to 5 mg for a month then 2.5 mg (1/2 tab) for at least two weeks I think it is safer to do a very slow taper because it will take some time for your adrenal glands to "wake up" If your legs keep swelling more you can take a double dose of bumetanide in the morning for 1-3 days in a row -for example, 4 mg of bumex and 40 meq of potassium in the morning and 2 mg of bumex and 20 meq of potassium in the afternoon I think it would be helpful to have a weekly blood draw to check potassium, at least until your diuretics doses are well settled -if potassium is still running mildly low next week, the spironolactone can be increased to 50 mg daily We increased your citalopram (for anxiety) You can take vitamin C supplement to see if it helps with bruising. It takes about a month to have full effect. It was a pleasure taking care of you in the hospital Mine Delgado MD Pending Studies at Discharge: No Stand-Alone Forms: My [facility] [place], Smoking Cessation Medications and DC Order Prescriptions: New citalopram 20 mg Tablet 20 mg PO HS Qty: 30 0RF ascorbic acid (vitamin C) [Vitamin C] 500 mg Tablet 1,000 mg PO DAILY Qty: 60 0RF prednisone 5 mg tablet 5 mg PO DIRECTED Qty: 45 0RF Rx Instructions: finish current taper down to 10 mg then continue 5 mg daily for 30 days then 2.5 mg (half tab) daily colchicine 0.6 mg capsule 0.6 mg PO DAILY Qty: 30 0RF Continued ondansetron HCl 4 mg Tablet 4 mg PO Q8H PRN (Reason: NAUSEA/VOMITING) quetiapine 200 mg tablet 200 mg PO HS nystatin 100,000 unit/gram Powder 1 applic TOPICAL BID PRN (Reason: UNDER BREASTS NEEDED.) buprenorphine-naloxone 8-2 mg film 0.5 film sublingual BID enoxaparin 150 mg/mL syringe 150 mg subcut UD Rx Instructions: is trying to change this levalbuterol HCl 1.25 mg/3 mL solution for nebulization 1.25 mg INHALATION TID PRN (Reason: Shortness Of Breath Or Wheezing) alprazolam 0.5 mg tablet 0.5 mg PO TID Qty: 14 0RF Rx Instructions: pt requesting to take same time as suboxone albuterol sulfate 90 mcg/actuation HFA aerosol inhaler 2 puff INHALATION UD PRN (Reason: Shortness Of Breath Or Wheezing) bumetanide 2 mg tablet 2 mg PO BID Qty: 60 0RF Rx Instructions: morning and lunch ipratropium bromide 0.02 % solution 3 ml continuous nebulization QID PRN (Reason: shortness of breath) Qty: 75 0RF insulin glargine 100 unit/mL (3 mL) insulin pen 68 unit SUBCUT QAM Qty: 15 0RF calcium polycarbophil [Fiber (calcium polycarbophil)] 625 mg Tablet 625 mg PO QAM Qty: 30 0RF Rx Instructions: Over the counter colchicine [Colcrys] 0.6 mg Tablet 0.6 mg PO BID PRN (Reason: gout attacks) Qty: 60 0RF Rx Instructions: Take 1.2mg po x 1 followed by 0.6mg po bid x 3 days guaifenesin [Mucinex] 600 mg tablet extended release 12hr 600 mg PO Q12 Rx Instructions: OTC fluticasone propionate [Flonase Allergy Relief] 50 mcg/actuation spray,suspension 1 spray intranasal BID Qty: 0 0RF Rx Instructions: administer into each nostril Trelegy Ellipta 200-62.5-25 mcg blister with device 1 ea INHALATION QAM Qty: 60 0RF levalbuterol tartrate 45 mcg/actuation HFA aerosol inhaler 2 puff INHALATION Q4 PRN (Reason: WHEEZE) Qty: 15 0RF insulin aspart U-100 [Novolog FlexPen U-100 Insulin] 100 unit/mL (3 mL) insulin pen 0 unit subcut TIDM Ozempic Inj 0.25 mg INJ WK allopurinol 100 mg tablet 300 mg PO QAM spironolactone 25 mg Tablet 25 mg PO QAM Qty: 30 0RF potassium chloride 20 mEq Tablet,Er Particles/Crystals 40 meq PO QAM Qty: 60 0RF prednisone 10 mg tablet 10 mg PO DIRECTED Qty: 14 0RF Rx Instructions: see taper instructions 3 tablets on 12/26 followed by 2 tablets for 5 days, 1 tablet for 5 days, then stop. Discontinued citalopram 10 mg tablet 10 mg PO DAILY Discharge Orders: Discharge Order (Routine); Ordered 01/02/24 Ordered By: Mine Delgado Admission Data Admit Date/Time: 01/01/24 14:29 Attending Provider: Mine Delgado Admit Provider: Riya Mckenna Primary Care Provider: Radha Barboza Other Providers: Riya Mckenna Other Interventions: Discharge Summary Assessment (RN) Last Done: 01/02/24 12:32 Hospital Stay Data Consultations 12/30/23 21:09 ED Decision to Admit Stat Diagnostic Imagining Performed 12/30/23 19:31 US venous doppler LE BI Stat Pending Results Patient Have Any Pending Studies at Discharge: No Discharge Instructions Given to Patient (Per Discharging Provider) Continue your enoxaparin per usual Follow up with primary care and Dr. Biggs (hematology) Take colchicine 0.6 mg daily (in addition to allopurinol) to prevent gout flares If you have a flare you can take 2 tabs (NOT three) x 1 followed by 1 tab twice a day for three days as per prior instructions The allopurinol is doing a good job at the current dose - uric acid level was in normal range this week If the gout is hard to manage despite colchicine and allopurinol we should make a Rheumatology referral Continue your prednisone taper, however, once you complete the 10 mg doses, go down to 5 mg for a month then 2.5 mg (1/2 tab) for at least two weeks I think it is safer to do a very slow taper because it will take some time for your adrenal glands to "wake up" If your legs keep swelling more you can take a double dose of bumetanide in the morning for 1-3 days in a row -for example, 4 mg of bumex and 40 meq of potassium in the morning and 2 mg of bumex and 20 meq of potassium in the afternoon I think it would be helpful to have a weekly blood draw to check potassium, at least until your diuretics doses are well settled -if potassium is still running mildly low next week, the spironolactone can be increased to 50 mg daily We increased your citalopram (for anxiety) You can take vitamin C supplement to see if it helps with bruising. It takes about a month to have full effect. It was a pleasure taking care of you in the hospital Mine Delgado MD Total Time Total Time Spent Total Time Spent (In Minutes): I personally spent: 40 minutes today on clinical care activities including: reviewing chart notes and vital signs examining and counseling the patient writing orders, prescriptions, discharge instructions documentation Coding Level of Care Code 03880 INP/OBS DISCH >30 MIN Diagnoses Chest pain R07.9 Bilateral knee pain M25.561; M25.562
== END 2024-01-02 14:19 | disposition home or self-care (01) | DRG 313 ==
LOC: 2N 18:15 → ED 18:15 → SUATTDRO 22:02 → 2N 23:32

== ENCOUNTER 2024-01-17 18:24 | Inpatient (IN) ==
[2024-01-17 18:53] LABS: Basophils # (auto) 0.04 K/uL (0.00-0.20); Basophils % (auto) 0.2 %; Eosinophils # (auto) 0.07 K/uL (0.00-0.50); Eosinophils % (auto) 0.4 %; Hematocrit (blood only) 43.4 % (37.0-47.0); Hemoglobin 13.4 g/dl (12.0-16.0); Immature Granulocytes % (auto) 1.2 %; Lymphocytes # (auto) 1.09 K/uL (1.20-3.40); Lymphocytes % (auto) 6.7 %; Mean Corpuscular Hgb Conc 30.9 g/dL (32.0-36.0); Mean Corpuscular Volume 87.3 fL (80.0-100.0); Mean Platelet Volume 10.6 fL (9.4-12.4); Monocytes # (auto) 0.66 K/uL (0.11-0.59); Monocytes % (auto) 4.1 %; Neutrophils # (auto) 14.22 K/uL (1.40-6.50); Neutrophils % (auto) 87.4 %; Platelet Count 292 K/uL (130-400); RDW Coefficient of Variation 16.8 % (11.5-14.5); RDW Standard Deviation 52.4 fL (36.4-46.3); Red Blood Count 4.97 M/uL (4.20-5.40); White Blood Count 16.28 K/ul (4.8-10.8)
[2024-01-17 19:27] LABS: Albumin Globulin Ratio 1.5 (0.9-2); Albumin Level 4.2 gm/dl (3.4-5.0); Bilirubin,Total 0.5 mg/dl (0.2-1.0); Calcium 9.4 mg/dl (8.6-10.3); Est GFR (African American) 55.5 ml/min; Est GFR (Non-African American) 47.9 ml/min; Globulin 2.8 gm/dl (2.5-4.0); Potassium 3.4 mmol/L (3.5-5.1)
--- NOTE | 2024-01-17 20:16 | Emergency Department Note ---
Impression & Plan Shortness of breath, COPD exacerbation, Hypoxic ED Provider Note NAME: LIANNE SAMUEL AGE: 63 SEX: F : 1960 ARRIVES VIA: Walk-In INFORMANT: Patient ED PROVIDER(S): Robby Birmingham DO CHIEF COMPLAINT: Shortness of breath HPI: Patient is a 63-year-old female with a past medical history of CHF, dyspnea on exertion, COPD who presents to the ER for shortness of breath. She notes that this episode of her COPD flare started 2 days ago. She admits to cough and congestion. She denies any fevers. No chest pain. Denies any belly pain, nausea, vomiting, or diarrhea. No dysuria, urgency, or frequency. Patient was seen here earlier today and notes that since she got home she could not walk still and consequently came in. She chronically uses 3 L as needed. She has been using it and notes that she is still short of breath. She has been on steroids and notes that that is not helping. No other exacerbating or remitting factors. ADDITIONAL HISTORY OBTAINED: Per HPI Chronic Medical/Social Conditions Affecting Care: Per HPI PAST MEDICAL HISTORY:See Below PAST SURGICAL HISTORY:See Below FAMILY HISTORY:See Below SOCIAL HISTORY:See Below HOME MEDICATIONS:See Below ALLERGIES:See Below VITALS:See Below PHYSICAL EXAMINATION: GENERAL: Sitting up in bed, alert, chronically ill-appearing, disheveled EYE EXAM: normal conjunctiva. OROPHARYNX: no exudate, no erythema, lips, buccal mucosa, and tongue normal and mucous membranes are moist NECK: supple, no nuchal rigidity, no adenopathy, non-tender LUNGS: Diffuse wheezing bilaterally. Normal chest wall mechanics HEART: no murmurs, S1 normal and S2 normal ABDOMEN: abdomen soft, non-tender, normo-active bowel sounds, no masses, no rebound or guarding. UPPER EXTREMITIES: upper extremities are grossly normal. LOWER EXTREMITIES: No pitting edema. NEURO EXAM: Normal sensorium, cranial nerves II-XII grossly intact, normal speech, no gross weakness of arms, no gross weakness of legs. MEDICAL DECISION MAKING: Patient is a 63-year-old female who presents ER for the above-stated complaint. IV was established medicos obtained. Patient was found to be hypoxic and placed on her chronic 3 L nasal cannula which she supposed to use intermittently. She was given neb treatments. She was given steroids. Patient was just discharged from here earlier and returns that she notes her shortness of breath significantly worse. She is on Lovenox and considered PE but will not explore any further. CBC shows a mild leukocytosis 16,000. No significant anemia. BMP with a mild hypokalemia 3.4. Glucose was elevated at 302. LFTs bilirubin unremarkable. Troponin was mildly elevated at 34 which is fairly consistent with previous. Viral panel was unremarkable. Patient was updated bedside. Patient was discussed with the hospitalist for further evaluation. Chest x-ray was not repeated as it was done just several hours ago at 4 PM. Consults/Care Managements Discussions: Per [facility] Triage Nursing notes reviewed. Limited review of prior medical records performed Vital Signs: reviewed and remarkable for hypoxic on room air Differential diagnosis: Differential diagnoses includes but is not limited to pneumonia, bronchitis, COPD/Asthma exacerbation, pneumothorax, pulmonary embolism, congestive heart failure, acute coronary syndrome ER treatment provided: See below Diagnostics interpreted by me include EKG and cardiac monitoring as listed below: -Cardiac Monitoring: An order was placed for continuous cardiac monitoring. The monitor shows a rate of 101 with sinus rhythm. -ECG: Sinus rhythm rate of 108 Normal axis Inferior Q waves QTc 431 -Laboratory studies:Interpreted by me as stated above in MDM and shown below. Imaging studies: Xrays: As interpreted by me: Images were reviewed from 4 PM today and showed no obvious focal infiltrate consequently was not repeated CTs show: none Procedures:none Critical Care: None Past Med/Surg History Problem List (Updated 01/18/24 @ 00:02 by Robby Birmingham DO) Hypoxic (Acute) COPD exacerbation (Acute) Shortness of breath (Acute) History of pulmonary embolism Michela esophagitis Thrush of mouth and esophagus HARRIS (dyspnea on exertion) (Acute) CHF (congestive heart failure) (Acute) Leg swelling (Acute) Dyspnea D-dimer, elevated (Acute) Palpitations (Acute) Chest pain (Acute) Bilateral knee pain CHF exacerbation (Acute) COPD exacerbation (Acute) Chest pain Right knee pain DM II (diabetes mellitus, type II), controlled Elevated troponin (Acute) Acute and chronic respiratory failure with hypoxia (Acute) Acute exacerbation of chronic obstructive pulmonary disease (Acute) Gout Leukocytosis (Acute) Acute hypokalemia (Acute) Multiple myeloma Last chemotherapy 2016 Follows with medical oncology in [place] YELENA Diabetes Hypokalemia Heart failure with preserved ejection fraction Generalized anxiety disorder Chronic respiratory failure with hypoxia and hypercapnia Tobacco abuse counseling Moderate persistent asthma Constipation Obesity hypoventilation syndrome Chronic anticoagulation Acute bronchitis Pulmonary vascular congestion COPD (chronic obstructive pulmonary disease) (Acute) Medical History (Updated 01/18/24 @ 00:02 by Robby Birmingham DO) History of pulmonary embolism Acute exacerbation of chronic obstructive pulmonary disease Acute heart failure with preserved ejection fraction (HFpEF) Acute exacerbation of chronic obstructive pulmonary disease Tobacco abuse Opiate dependence Asthma Surgical History No pertinent past surgical history Family History Sister Asthma Social History Smoking Status: Current every day smoker Tobacco Type: Cigarettes Cigarettes Per Day: 1 cigarette per day; Second Hand Exposure: No; Do You Dip or Chew Tobacco: No; Tobacco Cessation Education Requested by Patient: No Hx Alcohol Use: No Hx Substance Use: No Preferred Language: Faroese Communication Ability: Effective Photographic Technician Required: No Beliefs That Will Affect Care: None Current Living Situation: Alone Current Living Situation Comment: lives with sister temporarily Other Information That Helps Us Care for You: No Feels Safe at Home: Yes Safety Concerns: Feels Safe At This Time Assistive Devices: None Allergies Allergies Allergy/AdvReac Type Severity Reaction Status Date / Time codeine Allergy Severe Anaphylaxis Verified 11/14/23 01:37 Iodinated Contrast Media Allergy Severe Anaphylaxis Verified 11/14/23 01:37 shellfish derived Allergy Severe Anaphylaxis Verified 11/14/23 01:37 tramadol Allergy Intermediate ITCHINESS Verified 11/14/23 01:37 iohexol Allergy Unknown CAN'T Verified 11/14/23 01:37 REMEMBER diphenhydramine AdvReac Severe Anxiety Verified 11/14/23 01:37 [From Benadryl] promethazine AdvReac Intermediate Anxiety Verified 11/14/23 01:37 Home Meds Home Medications Medication Instructions Recorded Confirmed buprenorphine 8 mg-naloxone 2 mg 0.5 film sublingual BID 05/14/22 12/13/23 sublingual film nystatin 100,000 unit/gram topical 1 applic topical BID PRN UNDER 05/14/22 12/13/23 powder BREASTS NEEDED. ondansetron HCl 4 mg tablet 4 mg PO Q8H PRN NAUSEA/VOMITING 05/14/22 12/13/23 quetiapine 200 mg tablet 200 mg PO HS 05/14/22 12/13/23 levalbuterol HCl 1.25 mg/3 mL 1.25 mg inhalation TID PRN 01/16/23 12/13/23 solution for nebulization Shortness Of Breath Or Wheezing enoxaparin 150 mg/mL subcutaneous 150 mg subcut UD 05/07/23 12/13/23 syringe albuterol sulfate 90 mcg/actuation 2 puff inhalation UD PRN Shortness 08/30/23 12/13/23 aerosol inhaler Of Breath Or Wheezing guaifenesin 600 mg tablet, 600 mg PO Q12 Congestion 09/11/23 12/13/23 extended release 12 hr (Mucinex) Ozempic Inj 0.25 mg INJ WK 11/07/23 12/13/23 insulin aspart U-100 100 unit/mL 0 unit subcut TIDM 11/07/23 12/13/23 (3 mL) subcutaneous pen (Novolog FlexPen U-100 Insulin aspart) allopurinol 100 mg tablet 300 mg PO QAM 12/13/23 12/13/23 Previous Rx's Medication Instructions Recorded alprazolam 0.5 mg tablet 0.5 mg PO TID #14 tabs 08/02/23 fluticasone propionate 50 1 spray intranasal BID nasal 09/15/23 mcg/actuation nasal congestion #0 mL spray,suspension (Flonase Allergy Relief) fluticasone fur. 200 mcg-umeclid 1 ea inhalation QAM #60 ea 09/16/23 62.5 mcg-vilant 25 mcg inhalat.powder (Trelegy Ellipta) levalbuterol tartrate 45 2 puff inhalation Q4 PRN WHEEZE 09/16/23 mcg/actuation aerosol inhaler #15 grams bumetanide 2 mg tablet 2 mg PO BID #60 tabs 09/29/23 insulin glargine 100 unit/mL (3 68 unit (0.68 mL) subcut QAM #15 mL 10/17/23 mL) subcutaneous pen ipratropium bromide 0.02 % 3 ml continuous nebulization QID 10/17/23 solution for inhalation PRN shortness of breath #75 mL calcium polycarbophil 625 mg 625 mg PO QAM #30 tabs 10/30/23 tablet (Fiber (calcium polycarbophil)) colchicine 0.6 mg tablet (Colcrys) 0.6 mg PO BID PRN gout attacks #60 10/30/23 tabs potassium chloride 20 mEq 40 meq (2 x 20 mEq) PO QAM #60 tabs 12/25/23 tablet,extended release(part/cryst) prednisone 10 mg tablet 10 mg PO DIRECTED #14 tabs 12/25/23 spironolactone 25 mg tablet 25 mg PO QAM #30 tabs 12/25/23 ascorbic acid (vitamin C) 500 mg 1,000 mg (2 x 500 mg) PO DAILY #60 01/02/24 tablet (Vitamin C) tabs citalopram 20 mg tablet 20 mg PO HS #30 tabs 01/02/24 colchicine 0.6 mg capsule 0.6 mg PO DAILY #30 caps 01/02/24 prednisone 5 mg tablet 5 mg PO DIRECTED #45 tabs 01/02/24 Results & Data (ED) Vital Signs Vital Signs - 24 hr 01/17/24 18:28 01/17/24 19:52 01/17/24 19:55 Temperature 36.8 C Temperature Source Temporal Artery Scan Pulse Rate 118 H 111 H 108 H Pulse Rate [Finger] Respiratory Rate 26 H 18 Respiratory Effort / Characteristics Non-Labored Spontaneous Respiratory Depth Normal Blood Pressure 115/74 121/87 Blood Pressure Mean 87 93 Pulse Oximetry 91 91 Oxygen Delivery Method Room Air Room Air Oxygen Flow Rate Sepsis Recent Fever Within 48 Hours No Sepsis New/Unexplained Change in Mental Status No Sepsis Action Taken by Nursing No Action Required 01/17/24 20:01 01/17/24 20:43 01/17/24 20:45 Temperature Temperature Source Pulse Rate 105 H Pulse Rate [Finger] 103 H Respiratory Rate 17 18 Respiratory Effort / Characteristics Non-Labored Spontaneous Respiratory Depth Blood Pressure 108/80 Blood Pressure Mean 89 Pulse Oximetry 96 97 100 Oxygen Delivery Method Nasal Cannula Nasal Cannula Oxygen Flow Rate 2 2 Sepsis Recent Fever Within 48 Hours Sepsis New/Unexplained Change in Mental Status Sepsis Action Taken by Nursing Laboratory Data 01/17/24 18:40 01/17/24 18:40 Lab Results 01/17/24 01/17/24 01/17/24 Range/Units 18:40 20:21 20:23 WBC 16.28 H (4.8-10.8) K/ul RBC 4.97 (4.20-5.40) M/uL Hgb 13.4 (12.0-16.0) g/dl Hct 43.4 (37.0-47.0) % MCV 87.3 (80.0-100.0) fL MCH 27.0 (25.0-34.0) pg MCHC 30.9 L (32.0-36.0) g/dL RDW Std Deviation 52.4 H (36.4-46.3) fL RDW Coeff of Malick 16.8 H (11.5-14.5) % Plt Count 292 (130-400) K/uL MPV 10.6 (9.4-12.4) fL Immature Gran % (Auto) 1.2 % Neut % (Auto) 87.4 % Lymph % (Auto) 6.7 % [place] % (Auto) 4.1 % Eos % (Auto) 0.4 % Baso % (Auto) 0.2 % Neut # (Auto) 14.22 H (1.40-6.50) K/uL Lymph # (Auto) 1.09 L (1.20-3.40) K/uL [place] # (Auto) 0.66 H (0.11-0.59) K/uL Eos # (Auto) 0.07 (0.00-0.50) K/uL Baso # (Auto) 0.04 (0.00-0.20) K/uL Immature Gran # (Auto) 0.20 (0.01-0.20) K/uL Sodium 134 L (136-145) mmol/L Potassium 3.4 L (3.5-5.1) mmol/L Chloride 88 L (98-107) mmol/L Carbon Dioxide 35 H (21-32) mmol/L Anion Gap 11 (3-11) BUN 29 H (6-23) mg/dl Creatinine 1.21 H (0.6-1.2) mg/dl Est Cr Clr Drug Dosing 50.0 ml/min Est GFR ( Amer) 55.5 ml/min Est GFR (Non-Af Amer) 47.9 ml/min BUN/Creatinine Ratio 24.0 H (10-20) Glucose 302 H* (70-99(Fasting)) mg/dl POC Glucose 275 H (70-99) mg/dl Calcium 9.4 (8.6-10.3) mg/dl Total Bilirubin 0.5 (0.2-1.0) mg/dl AST 10 L (13-39) U/L ALT 17 (7-52) U/L Alkaline Phosphatase 92 (34-104) U/L Troponin I High Sens 34.8 H (0-14) pg/ml B-Natriuretic Peptide 104 H (0-100) pg/ml Total Protein 7.0 (6.0-8.3) gm/dl Albumin 4.2 (3.4-5.0) gm/dl Globulin 2.8 (2.5-4.0) gm/dl Albumin/Globulin Ratio 1.5 (0.9-2) Adenovirus (PCR) Not Detected (NotDetected) B. pertussis DNA (PCR) Not Detected (NotDetected) B.parapertussis DNA PCR Not Detected (NotDetected) C. pneumoniae DNA (PCR) Not Detected (NotDetected) Coronavirus OC43 (PCR) Not Detected (NotDetected) Coronavirus HKU1 (PCR) Not Detected (NotDetected) Coronavirus 229E (PCR) Not Detected (NotDetected) SARS-CoV-2 (PCR) Not Detected (NotDetected) Coronavirus NL63 (PCR) Not Detected (NotDetected) Human Metapneumovir PCR Not Detected (NotDetected) Influenza Type A (PCR) Not Detected (NotDetected) Influenza Type B (PCR) Not Detected (NotDetected) M. pneumoniae (PCR) Not Detected (NotDetected) Parainfluenza 1 (PCR) Not Detected (NotDetected) Parainfluenza 2 (PCR) Not Detected (NotDetected) Parainfluenza 3 (PCR) Not Detected (NotDetected) Parainfluenza 4 (PCR) Not Detected (NotDetected) RSV (PCR) Not Detected (NotDetected) Entero/Rhino (PCR) Not Detected (NotDetected) Administered Medications Buprenorphine/Naloxone (Buprenorphine/Naloxone 8/2 Mg Tab) 1 tab SL BID FLETCHER Stop: 02/16/24 23:44 Last Admin: 01/17/24 23:58 Dose: Not Given Documented By: CLC Clotrimazole (Clotrimazole 10 Mg Virgil) 10 mg BUCCAL [id number] FLETCHER Stop: 01/27/24 22:59 Last Admin: 01/17/24 22:58 Dose: 10 mg Documented By: MERCED Discontinued Medications Albuterol (Albut/Ipratrop 3mg/0.5mg Neb 3 Ml Vial) 12 ml NEB ONE ONE; Protocol Stop: 01/17/24 20:11 Last Admin: 01/17/24 20:36 Dose: 12 ml Documented By: JENIFER Fluconazole (Diflucan) 200 mg in 100 mls @ 100 mls/hr IV 2100 ONE Stop: 01/17/24 21:59 Last Infusion: 01/17/24 22:34 Dose: Infused Documented By: Admin: 01/17/24 21:33 Dose: 100 mls/hr Documented By: MERCED Discharge Plan Visit Data Chief Complaint: Shortness of Breath/Dyspnea Stated Complaint: SOB, NOT FEELING BETTER GOT WORSE, HERE EARLIER ED Provider: Robby Birmingham Discharge Problem: Shortness of breath, COPD exacerbation, Hypoxic Patient Disposition: Admitted As Inpatient Discharge Instructions Interventions: ED Discharge Assessment Last Done: 01/17/24 23:07
[2024-01-17] MEDS: ALBUT/IPRATROP 3MG/0.5MG NEB 3 ML VIAL NEB ONE (20:36)
[2024-01-17 20:40] LABS: Troponin I High Sensitivity 34.8 pg/ml (0-14)
[2024-01-17 21:21] LABS: Adenovirus PCR Not Detected (NotDetected); Bordetella parapertussis PCR Not Detected (NotDetected); Bordetella pertussis PCR Not Detected (NotDetected); Chlamydia pneumoniae PCR Not Detected (NotDetected); Coronavirus 229E PCR Not Detected (NotDetected); Coronavirus CoV-2 (COVID19)PCR Not Detected (NotDetected); Coronavirus HKU1 PCR Not Detected (NotDetected); Coronavirus NL63 PCR Not Detected (NotDetected); Coronavirus OC43PCR Not Detected (NotDetected); Human Metapneumovirus PCR Not Detected (NotDetected); Influenza A PCR Not Detected (NotDetected); Influenza B PCR Not Detected (NotDetected); Mycoplasma pneumoniae PCR Not Detected (NotDetected); Parainfluenza Virus 1 PCR Not Detected (NotDetected); Parainfluenza Virus 2 PCR Not Detected (NotDetected); Parainfluenza Virus 3 PCR Not Detected (NotDetected); Parainfluenza Virus 4 PCR Not Detected (NotDetected); Respiratory Syncytial VirusPCR Not Detected (NotDetected); Rhinovirus/Enterovirus PCR Not Detected (NotDetected)
--- NOTE | 2024-01-17 21:27 | History & Physical Report ---
Date of Service January 17, 2024 Assessment & Plan (1) Thrush of mouth and esophagus: (2) Michela esophagitis: (3) Acute and chronic respiratory failure with hypoxia: (4) DM II (diabetes mellitus, type II), controlled: (5) Heart failure with preserved ejection fraction: (6) Generalized anxiety disorder: (7) Obesity hypoventilation syndrome: (8) Chronic anticoagulation: (9) History of pulmonary embolism: Plan Thrush of mouth and esophagus/presumptive Michela esophagitis- Patient with moderately severe visible oral changes Describes symptoms going down into her stomach as she attempts to swallow Start on fluconazole 20 mg IV daily with first dose this evening Start on clotrimazole troches dissolving mL 5 times per day for 5 days Minimize steroids and antibiotics Acute and chronic respiratory failure/COPD/CHF- Patient appears to be at her relative baseline, and main complaint is that of difficulty with sore throat and swallowing Continue her usual treatment as below COPD/moderate persistent asthma/history of pulmonary embolism- Continue Mucinex 600 mg p.o. every 12 hours Ipratropium bromide nebulizer 4 times daily as needed Levalbuterol 1.25 mg neb Nebulizer 4 times daily as needed Hold prednisone for now, due to severe oral Michela infection Continue Tredahlia Gonzalota Patient has been on Lovenox 150 mg subcu daily due to history of pulmonary embolism. Discussed with her that she should have a local crepe sole wire brusher, and we can see about consulting pulmonology while she is in the hospital to facilitate her ongoing care HFpEF- Continue bumetanide 2 mg p.o. twice daily and potassium chloride 40 mEq p.o. twice daily Diabetes mellitus/obesity- Continue glargine, but reduce dosing from 68 to 60 units subcu every morning On Ozempic in the outpatient setting Placed on Accu-Cheks with NovoLog SSI Generalized anxiety disorder/opiate dependence- Continue alprazolam Continue buprenorphine-naloxone Continue citalopram This is her 15th admission this calendar year History of Present Illness Chief Complaint: The patient presents to the emergency department with complaint of difficulty swallowing, and difficulty with worsening shortness of breath and congestion over the past few days Primary Care Provider: Radha Barboza The patient is a 63-year-old female with a past medical history including recur rent admissions for COPD exacerbation and CHF, diabetes mellitus type 2, acute on chronic respiratory failure with hypoxia, gout, multiple myeloma, diabetes mellitus, generalized anxiety disorder, tobacco abuse, history of PE, obesity hypoventilation syndrome, on chronic anticoagulation with Lovenox. She presents to the emergency department with main complaint of significant difficulty with swallowing, and some mild worsening of her chronic shortness of breath. She had been seen earlier in the day in the emergency department, and was sent home, but reported worsening of her symptoms as the day progressed. Allergies Allergy/AdvReac Type Severity Reaction Status Date / Time codeine Allergy Severe Anaphylaxis Verified 11/14/23 01:37 Iodinated Contrast Media Allergy Severe Anaphylaxis Verified 11/14/23 01:37 shellfish derived Allergy Severe Anaphylaxis Verified 11/14/23 01:37 tramadol Allergy Intermediate ITCHINESS Verified 11/14/23 01:37 iohexol Allergy Unknown CAN'T Verified 11/14/23 01:37 REMEMBER diphenhydramine AdvReac Severe Anxiety Verified 11/14/23 01:37 [From Benadryl] promethazine AdvReac Intermediate Anxiety Verified 11/14/23 01:37 Home Medications Medication Instructions Recorded Confirmed Type buprenorphine 8 mg-naloxone 2 mg 0.5 film sublingual BID 05/14/22 12/13/23 History sublingual film nystatin 100,000 unit/gram topical 1 applic topical BID PRN UNDER 05/14/22 12/13/23 History powder BREASTS NEEDED. ondansetron HCl 4 mg tablet 4 mg PO Q8H PRN NAUSEA/VOMITING 05/14/22 12/13/23 History quetiapine 200 mg tablet 200 mg PO HS 05/14/22 12/13/23 History levalbuterol HCl 1.25 mg/3 mL 1.25 mg inhalation TID PRN 01/16/23 12/13/23 History solution for nebulization Shortness Of Breath Or Wheezing enoxaparin 150 mg/mL subcutaneous 150 mg subcut UD 05/07/23 12/13/23 History syringe alprazolam 0.5 mg tablet 0.5 mg PO TID #14 tabs 08/02/23 12/13/23 Rx albuterol sulfate 90 mcg/actuation 2 puff inhalation UD PRN Shortness 08/30/23 12/13/23 History aerosol inhaler Of Breath Or Wheezing guaifenesin 600 mg tablet, 600 mg PO Q12 Congestion 09/11/23 12/13/23 History extended release 12 hr (Mucinex) fluticasone propionate 50 1 spray intranasal BID nasal 09/15/23 12/13/23 Rx mcg/actuation nasal congestion #0 mL spray,suspension (Flonase Allergy Relief) fluticasone fur. 200 mcg-umeclid 1 ea inhalation QAM #60 ea 09/16/23 12/13/23 Rx 62.5 mcg-vilant 25 mcg inhalat.powder (Trelegy Ellipta) levalbuterol tartrate 45 2 puff inhalation Q4 PRN WHEEZE 09/16/23 12/13/23 Rx mcg/actuation aerosol inhaler #15 grams bumetanide 2 mg tablet 2 mg PO BID #60 tabs 09/29/23 12/13/23 Rx insulin glargine 100 unit/mL (3 68 unit (0.68 mL) subcut QAM #15 mL 10/17/23 12/13/23 Rx mL) subcutaneous pen ipratropium bromide 0.02 % 3 ml continuous nebulization QID 10/17/23 12/13/23 Rx solution for inhalation PRN shortness of breath #75 mL calcium polycarbophil 625 mg 625 mg PO QAM #30 tabs 10/30/23 12/13/23 Rx tablet (Fiber (calcium polycarbophil)) colchicine 0.6 mg tablet (Colcrys) 0.6 mg PO BID PRN gout attacks #60 10/30/23 12/13/23 Rx tabs Ozempic Inj 0.25 mg INJ WK 11/07/23 12/13/23 History insulin aspart U-100 100 unit/mL 0 unit subcut TIDM 11/07/23 12/13/23 History (3 mL) subcutaneous pen (Novolog FlexPen U-100 Insulin aspart) allopurinol 100 mg tablet 300 mg PO QAM 12/13/23 12/13/23 History potassium chloride 20 mEq 40 meq (2 x 20 mEq) PO QAM #60 tabs 12/25/23 Rx tablet,extended release(part/cryst) prednisone 10 mg tablet 10 mg PO DIRECTED #14 tabs 12/25/23 Rx spironolactone 25 mg tablet 25 mg PO QAM #30 tabs 12/25/23 Rx ascorbic acid (vitamin C) 500 mg 1,000 mg (2 x 500 mg) PO DAILY #60 01/02/24 Rx tablet (Vitamin C) tabs citalopram 20 mg tablet 20 mg PO HS #30 tabs 01/02/24 Rx colchicine 0.6 mg capsule 0.6 mg PO DAILY #30 caps 01/02/24 Rx prednisone 5 mg tablet 5 mg PO DIRECTED #45 tabs 01/02/24 Rx Past Med/Surg History Problem List (Updated 01/17/24 @ 23:50 by Casey Aguilar MD) History of pulmonary embolism Michela esophagitis Thrush of mouth and esophagus HARRIS (dyspnea on exertion) (Acute) CHF (congestive heart failure) (Acute) Leg swelling (Acute) Dyspnea D-dimer, elevated (Acute) Palpitations (Acute) Chest pain (Acute) Bilateral knee pain CHF exacerbation (Acute) COPD exacerbation (Acute) Chest pain Right knee pain DM II (diabetes mellitus, type II), controlled Elevated troponin (Acute) Acute and chronic respiratory failure with hypoxia (Acute) Acute exacerbation of chronic obstructive pulmonary disease (Acute) Gout Leukocytosis (Acute) Acute hypokalemia (Acute) Multiple myeloma Last chemotherapy 2016 Follows with medical oncology in [facility] Diabetes Hypokalemia Heart failure with preserved ejection fraction Generalized anxiety disorder Chronic respiratory failure with hypoxia and hypercapnia Tobacco abuse counseling Moderate persistent asthma Constipation Obesity hypoventilation syndrome Chronic anticoagulation Acute bronchitis Pulmonary vascular congestion COPD (chronic obstructive pulmonary disease) (Acute) Medical History (Updated 01/17/24 @ 23:50 by Casey Aguilar MD) History of pulmonary embolism Acute exacerbation of chronic obstructive pulmonary disease Acute heart failure with preserved ejection fraction (HFpEF) Acute exacerbation of chronic obstructive pulmonary disease Tobacco abuse Opiate dependence Asthma Surgical History No pertinent past surgical history Family History Sister Asthma Social History Smoking Status: Current every day smoker Tobacco Type: Cigarettes Cigarettes Per Day: 1 cigarette per day; Second Hand Exposure: No; Do You Dip or Chew Tobacco: No; Tobacco Cessation Education Requested by Patient: No Hx Alcohol Use: No Hx Substance Use: No Preferred Language: Maltese Communication Ability: Effective 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: No Beliefs That Will Affect Care: None Current Living Situation: Alone Current Living Situation Comment: lives with sister temporarily Other Information That Helps Us Care for You: No Feels Safe at Home: Yes Safety Concerns: Feels Safe At This Time Assistive Devices: None Review of Systems Review of Systems: The patient denies chest pain, palpitations, lower extremity swelling, fevers, chills, sweats, nausea, vomiting, diarrhea , constipation, abdominal pain, pelvic pain, blood in urine or stool, dysuria, urinary frequency or urgency, memory loss, loss of consciousness, rash, abnormal bruising or bleeding, Focal weakness, numbness or tingling in arms or legs, generalized arthralgias or myalgias, back or neck pain, or night sweats. The review of systems is otherwise negative other than for that already noted above, and at least 10 systems have been reviewed. Physical Exam Physical Exam: The patient is awake, alert and oriented 3, well developed and well nourished, normocephalic and atraumatic, lying in bed and in no acute distress. HEENT--PERRL, EOMI. mucous membranes with moderately severe erythema and white plaques. Neck--supple. No JVD. No bruits. Thyroid normal, trachea midline, no adenopathy. Heart--normal S1 and S2. No murmurs, rubs or gallops. Lungs--decreased breath sounds throughout. No respiratory distress, no accessory muscle use. Abdomen--normal bowel sounds and soft. Nontender. Nondistended, no hernias or masses, no organomegaly. Extremities--No edema. Dermatologic--normal skin turgor, normal color, no abnormal lymph nodes, no rash. Neurologic--cranial nerves II through XII grossly intact. Rheumatologic--normal range of motion. Psychiatric--normal affect. Results & Data Results & Data Vital Signs (Past 12 Hours) Vital Signs Temp Pulse Pulse Resp BP Pulse Ox O2 Del Method 01/17/24 20:45 105 H 18 108/80 100 01/17/24 20:43 103 H 17 97 Nasal Cannula 01/17/24 20:01 96 Nasal Cannula 01/17/24 19:55 108 H 18 121/87 91 Room Air 01/17/24 19:52 111 H 01/17/24 18:28 36.8 C 118 H 26 H 115/74 91 Room Air O2 Flow Rate 01/17/24 20:45 01/17/24 20:43 2 01/17/24 20:01 2 01/17/24 19:55 01/17/24 19:52 01/17/24 18:28 Laboratory Results Laboratory Results WBC 16.28 K/ul (4.8-10.8) H 01/17/24 18:40 RBC 4.97 M/uL (4.20-5.40) 01/17/24 18:40 Hgb 13.4 g/dl (12.0-16.0) 01/17/24 18:40 Hct 43.4 % (37.0-47.0) 01/17/24 18:40 MCV 87.3 fL (80.0-100.0) 01/17/24 18:40 MCH 27.0 pg (25.0-34.0) 01/17/24 18:40 MCHC 30.9 g/dL (32.0-36.0) L 01/17/24 18:40 RDW Std Deviation 52.4 fL (36.4-46.3) H 01/17/24 18:40 RDW Coeff of Malick 16.8 % (11.5-14.5) H 01/17/24 18:40 Plt Count 292 K/uL (130-400) 01/17/24 18:40 MPV 10.6 fL (9.4-12.4) 01/17/24 18:40 Immature Gran % (Auto) 1.2 % 01/17/24 18:40 Neut % (Auto) 87.4 % 01/17/24 18:40 Lymph % (Auto) 6.7 % 01/17/24 18:40 Caldwell % (Auto) 4.1 % 01/17/24 18:40 Eos % (Auto) 0.4 % 01/17/24 18:40 Baso % (Auto) 0.2 % 01/17/24 18:40 Neut # (Auto) 14.22 K/uL (1.40-6.50) H 01/17/24 18:40 Lymph # (Auto) 1.09 K/uL (1.20-3.40) L 01/17/24 18:40 Caldwell # (Auto) 0.66 K/uL (0.11-0.59) H 01/17/24 18:40 Eos # (Auto) 0.07 K/uL (0.00-0.50) 01/17/24 18:40 Baso # (Auto) 0.04 K/uL (0.00-0.20) 01/17/24 18:40 Immature Gran # (Auto) 0.20 K/uL (0.01-0.20) 01/17/24 18:40 Sodium 134 mmol/L (136-145) L 01/17/24 18:40 Potassium 3.4 mmol/L (3.5-5.1) L 01/17/24 18:40 Chloride 88 mmol/L (98-107) L 01/17/24 18:40 Carbon Dioxide 35 mmol/L (21-32) H 01/17/24 18:40 Anion Gap 11 (3-11) 01/17/24 18:40 BUN 29 mg/dl (6-23) H 01/17/24 18:40 Creatinine 1.21 mg/dl (0.6-1.2) H 01/17/24 18:40 Est Cr Clr Drug Dosing 50.0 ml/min 01/17/24 18:40 Est GFR ( Amer) 55.5 ml/min 01/17/24 18:40 Est GFR (Non-Af Amer) 47.9 ml/min 01/17/24 18:40 BUN/Creatinine Ratio 24.0 (10-20) H 01/17/24 18:40 Glucose 302 mg/dl (70-99(Fasting)) H* 01/17/24 18:40 POC Glucose 275 mg/dl (70-99) H 01/17/24 20:21 Calcium 9.4 mg/dl (8.6-10.3) 01/17/24 18:40 Total Bilirubin 0.5 mg/dl (0.2-1.0) 01/17/24 18:40 AST 10 U/L (13-39) L 01/17/24 18:40 ALT 17 U/L (7-52) 01/17/24 18:40 Alkaline Phosphatase 92 U/L (34-104) 01/17/24 18:40 Troponin I High Sens 34.8 pg/ml (0-14) H 01/17/24 18:40 B-Natriuretic Peptide 104 pg/ml (0-100) H 01/17/24 18:40 Total Protein 7.0 gm/dl (6.0-8.3) 01/17/24 18:40 Albumin 4.2 gm/dl (3.4-5.0) 01/17/24 18:40 Globulin 2.8 gm/dl (2.5-4.0) 01/17/24 18:40 Albumin/Globulin Ratio 1.5 (0.9-2) 01/17/24 18:40 Adenovirus (PCR) Not Detected (NotDetected) 01/17/24 20:23 B. pertussis DNA (PCR) Not Detected (NotDetected) 01/17/24 20:23 B.parapertussis DNA PCR Not Detected (NotDetected) 01/17/24 20:23 C. pneumoniae DNA (PCR) Not Detected (NotDetected) 01/17/24 20:23 Coronavirus OC43 (PCR) Not Detected (NotDetected) 01/17/24 20:23 Coronavirus HKU1 (PCR) Not Detected (NotDetected) 01/17/24 20:23 Coronavirus 229E (PCR) Not Detected (NotDetected) 01/17/24 20:23 SARS-CoV-2 (PCR) Not Detected (NotDetected) 01/17/24 20:23 Coronavirus NL63 (PCR) Not Detected (NotDetected) 01/17/24 20:23 Human Metapneumovir PCR Not Detected (NotDetected) 01/17/24 20:23 Influenza Type A (PCR) Not Detected (NotDetected) 01/17/24 20:23 Influenza Type B (PCR) Not Detected (NotDetected) 01/17/24 20:23 M. pneumoniae (PCR) Not Detected (NotDetected) 01/17/24 20:23 Parainfluenza 1 (PCR) Not Detected (NotDetected) 01/17/24 20:23 Parainfluenza 2 (PCR) Not Detected (NotDetected) 01/17/24 20:23 Parainfluenza 3 (PCR) Not Detected (NotDetected) 01/17/24 20:23 Parainfluenza 4 (PCR) Not Detected (NotDetected) 01/17/24 20:23 RSV (PCR) Not Detected (NotDetected) 01/17/24 20:23 Entero/Rhino (PCR) Not Detected (NotDetected) 01/17/24 20:23 Code Status & VTE Plan Code Status Full code VTE Prophylaxis Plan VTE Prophylaxis will be ordered: Yes PG Care Time/CCT Total # of Minutes Spent Total Time Spent with Patient: Total time spent is greater than 50% in coordination of care (as documented) at patient's floor/unit and/or counseling patient: Coding Level of Care Code 81842 INT INP/OBS CARE 3/75MIN Diagnoses Thrush of mouth and esophagus B37.81; B37.0 Michela esophagitis B37.81 Acute and chronic respiratory failure with hypoxia J96.21 DM II (diabetes mellitus, type II), controlled E11.9 Chronic heart failure with preserved ejection fraction I50.32 Heart failure chronicity: chronic Generalized anxiety disorder F41.1 Obesity hypoventilation syndrome E66.2 Chronic anticoagulation Z79.01 History of pulmonary embolism Z86.711 (5) Heart failure with preserved ejection fraction Heart failure chronicity: chronic Qualified Code(s): I50.32 - Chronic diastolic (congestive) heart failure
[2024-01-17] MEDS: FLUCONAZOLE 200 MG/100 ML BAG IV ONE (21:33)
[2024-01-17] MEDS: CLOTRIMAZOLE 10 MG TROCHE BUCCAL SCH (22:58)
[2024-01-17] MEDS ORDERED: NYSTATIN POWDER 15GM BTL EXT PRN (23:22)
[2024-01-17] MEDS ORDERED: GLUCAGON FOR INJ 1 MG VIAL IM PRN (23:30)
[2024-01-17] MEDS ORDERED: GLUCOSE 40% GEL 15 GM TUBE PO PRN (23:30)
[2024-01-17] MEDS ORDERED: DEXTROSE 50% 50 ML SYRINGE IV PRN (23:30)
[2024-01-17] MEDS ORDERED: CARBOHYDRATES FOR HYPOGLYCEMIA PO PRN (23:30)
[2024-01-17] MEDS ORDERED: GLUCOSE 10 TAB/TUBE PO PRN (23:30)
[2024-01-17] MEDS: BUPRENORPHINE/NALOXONE 8/2 MG TAB SL SCH (23:58)
[2024-01-18] MEDS: ALPRAZolam 0.5 MG TABLET PO SCH
[2024-01-18] MEDS: BUMETANIDE 1 MG TAB PO SCH
[2024-01-18] MEDS: ENOXAPARIN 100 MG/1ML SYR SQ SCH (00:01)
[2024-01-18] MEDS: CITALOPRAM 20 MG TAB PO SCH (00:01)
[2024-01-18] MEDS: guaiFENesin 600 MG TABCR PO SCH (00:01)
[2024-01-18] MEDS: ACETAMINOPHEN 325 MG TAB PO PRN (00:04)
[2024-01-18] MEDS: ONDANSETRON INJ 2 MG/ML 2 ML VIAL IV STA (04:38)
[2024-01-18 05:38] LABS: Albumin Level 4.1 gm/dl (3.4-5.0); Anion Gap 11 (3-11); BUN Creatinine Ratio 26.6 (10-20); Blood Urea Nitrogen 29 mg/dl (6-23); Calcium 9.4 mg/dl (8.6-10.3); Carbon Dioxide 34 mmol/L (21-32); Chloride 90 mmol/L (98-107); Est GFR (Non-African American) 54.4 ml/min; Glucose 201 mg/dl (70-99(Fasting)); Phosphorus 5.7 mg/dl (2.5-4.9); Sodium 135 mmol/L (136-145)
[2024-01-18 07:05] LABS: Hematocrit (blood only) 43.3 % (37.0-47.0); Hemoglobin 13.8 g/dl (12.0-16.0); Mean Corpuscular Hemoglobin 27.2 pg (25.0-34.0); Mean Corpuscular Hgb Conc 31.9 g/dL (32.0-36.0); Mean Corpuscular Volume 85.2 fL (80.0-100.0); Mean Platelet Volume 11.4 fL (9.4-12.4); Platelet Count 249 K/uL (130-400); RDW Coefficient of Variation 16.6 % (11.5-14.5); RDW Standard Deviation 51.1 fL (36.4-46.3); Red Blood Count 5.08 M/uL (4.20-5.40); White Blood Count 14.65 K/ul (4.8-10.8)
[2024-01-18 07:07] LABS: Basophils # (auto) 0.05 K/uL (0.00-0.20); Basophils % (auto) 0.3 %; Eosinophils # (auto) 0.15 K/uL (0.00-0.50); Immature Granulocytes # (auto) 0.17 K/uL (0.01-0.20); Immature Granulocytes % (auto) 1.2 %; Lymphocytes # (auto) 1.27 K/uL (1.20-3.40); Lymphocytes % (auto) 8.7 %; Monocytes # (auto) 0.59 K/uL (0.11-0.59); Neutrophils # (auto) 12.42 K/uL (1.40-6.50); Neutrophils % (auto) 84.8 %; Platelet Estimate Normal (Normal)
[2024-01-18] MEDS: ASCORBIC ACID 500 MG TAB PO SCH (08:24)
[2024-01-18] MEDS: allopurinoL 300 MG TAB PO SCH (08:24)
[2024-01-18] MEDS: COLCHICINE 0.6 MG TAB PO SCH (08:24)
[2024-01-18] MEDS: CALCIUM POLYCARBOPHIL 625MG TAB PO SCH (08:24)
[2024-01-18] MEDS: SPIRONOLACTONE 25 MG TAB PO SCH (08:24)
[2024-01-18] MEDS: UMECLIDINIUM/VILANTEROL 62.5/25MCG 7 PUFFS/INHALER INH SCH (08:25)
[2024-01-18] MEDS: FLUTICASONE FUROATE 200MCG 14 PUFFS/INHALER INH SCH (08:25)
[2024-01-18] MEDS: BUPRENORPHINE/NALOXONE 8/2 MG TAB SL SCH (08:33)
[2024-01-18] MEDS: LANTUS PER UNIT CHARGE SC SCH (08:33)
[2024-01-18] MEDS ORDERED: NON-FORMULARY MEDICATION (Fluticasone-Umeclidin-Vilanter [Trelegy Ellipta] 200-62.5-25 mcg INH SCH (09:00)
[2024-01-18] MEDS: predniSONE 10 MG TABLET PO SCH (11:44)
[2024-01-18] MEDS: INSULIN ASPART PER UNIT CHARGE SC SCH (16:35)
--- NOTE | 2024-01-18 18:58 | Hospitalist Progress Note ---
Date of Service January 18, 2024 Assessment & Plan (1) Thrush of mouth and esophagus: Plan: Cause of her sore throat and odynophagia Continue IV fluconazole and clotrimazole trouches po consider adding on magic mouthwash if pain continues (2) Acute and chronic respiratory failure with hypoxia: Plan: feels more SOB and using 3LNC and baseline is room air, 2/2 ongoing smoking, COPD, and CHF wean off O2 as needed resume home prednisone 10mg daily no need for antibiotics or IV steroids Counseled on smoking cessation (3) DM II (diabetes mellitus, type II), controlled: Plan: add on Novolog SSI to Lantus accuchecks last A1C 9.6% in 09/2023 check A1C in AM (4) Heart failure with preserved ejection fraction: Plan: Acute on chronic HFpEF, with increased LE edema She traditionally cannot follow a fluid restriction at home but does try to follow low sodium diet Add on 2000mL fluid restriction which she reports is far less fluid than she typically takes in at home Increase Bumex po to 4mg po bid (she states home dose recently changed to 6mg po qAM and 4mg at noon FOllow daily weights, I/Os, low sodium diet Check BMP in AM Replace K+ with 40 meq po x 1 continue aldactone (5) Generalized anxiety disorder: Plan: continue Celexa 20mg daily, Seroquel, xanax (6) Obesity hypoventilation syndrome: Plan: continue Trilogy qhs (7) History of pulmonary embolism: Plan: continue Lovenox 90 mg bid (8) Multiple myeloma: Plan: with a h/o stem cell transplant has appt with Oncology for in Jan (9) Gout: Plan: continue allopurinol colchicine daily (10) COPD (chronic obstructive pulmonary disease): Plan: no acute issues BioFire neg, CXR neg continue maintenance inhalers Plan DVT proph-Lovenox Dispo-continued stay Admission and Anticipated Discharge Date Admission Date: January 17, 2024 Subjective Pt continues to feel very sore in her throat and painful with swallowing in her chest. Has swelling in her legs and +SOB Tele with NSR, ST Physical Exam Constitutional: WD/WN, vitals as above ENMT: Mouth: + oropharynx abnormality (++erythema tongue/buccal mucosa/posterior OP) and + oral mucosal abnormality (white exudate throat and buccal mucosa) Respiratory: normal respiratory effort Auscultation: + diminished lung sounds (throughout); no crackles, no rhonchi and no wheezes Cardiovascular: Rate/Rhythm: regular rate and regular rhythm Heart Sounds: no murmur Extremities: + edema (2+ pitting edema bilat ankles and distal legs) Psychiatric: A+Ox3, euthymic affect Results & Data Results & Data Vital Signs (Past 12 Hours) Vital Signs Temp Pulse Resp BP Pulse Ox O2 Del Method O2 Flow Rate 01/18/24 18:00 105 H 13 97 Nasal Cannula 3 01/18/24 16:01 36.6 C 01/18/24 16:00 101 H 13 96 01/18/24 14:00 100 H 21 91 01/18/24 13:17 102 H 9 L 100 5 01/18/24 13:00 100 H 16 95 01/18/24 12:06 102 H 21 97 Nasal Cannula 3 01/18/24 12:00 36.7 C 01/18/24 11:39 132/83 01/18/24 11:30 110 H 20 01/18/24 11:21 103 H 29 H 96 01/18/24 10:11 105 H 18 95 01/18/24 09:02 105 H 22 94 Room Air 01/18/24 08:48 94/77 L 01/18/24 08:35 106 H 23 95 01/18/24 08:05 103 H 16 92 01/18/24 08:00 Room Air 01/18/24 08:00 36.8 C 01/18/24 07:03 104 H 14 94 Laboratory Results CBC, CMP, magnesium, troponin reviewed PG Care Time/CCT Total # of Minutes Spent Total Time Spent with Patient: Total time spent is greater than 50% in coordination of care (as documented) at patient's floor/unit and/or counseling patient: Coding Level of Care Code 61704 SUB INP/OBS CARE 2/35MIN Diagnoses Thrush of mouth and esophagus B37.81; B37.0 Acute and chronic respiratory failure with hypoxia J96.21 DM II (diabetes mellitus, type II), controlled E11.9 Chronic heart failure with preserved ejection fraction I50.32 Heart failure chronicity: chronic Generalized anxiety disorder F41.1 Obesity hypoventilation syndrome E66.2 History of pulmonary embolism Z86.711 Multiple myeloma C90.00 Multiple myeloma remission status: unspecified Gout M10.9 COPD (chronic obstructive pulmonary disease) J44.9 COPD type: unspecified COPD (4) Heart failure with preserved ejection fraction Heart failure chronicity: chronic Qualified Code(s): I50.32 - Chronic diastolic (congestive) heart failure (8) Multiple myeloma Multiple myeloma remission status: unspecified Qualified Code(s): C90.00 - Multiple myeloma not having achieved remission (10) COPD (chronic obstructive pulmonary disease) COPD type: unspecified COPD Qualified Code(s): J44.9 - Chronic obstructive pulmonary disease, unspecified
[2024-01-18] MEDS: FLUCONAZOLE 200 MG/100 ML BAG IV SCH (20:28)
[2024-01-18] MEDS: QUEtiapine FUMARATE 200 MG TAB PO SCH (20:29)
[2024-01-18] MEDS: POTASSIUM CHLORIDE CRTAB 20 MEQ TABCR PO STA (23:20)
[2024-01-19 05:08] LABS: Albumin Level 4.1 gm/dl (3.4-5.0); BUN Creatinine Ratio 26.5 (10-20); Calcium 9.7 mg/dl (8.6-10.3); Creatinine Clr Calc Pharmacy 44.9 ml/min; Est GFR (African American) 48.2 ml/min; Est GFR (Non-African American) 41.6 ml/min; Magnesium 2.2 mg/dl (1.7-2.4); Phosphorus 5.3 mg/dl (2.5-4.9); Potassium 3.8 mmol/L (3.5-5.1)
[2024-01-19 05:10] LABS: Basophils # (auto) 0.03 K/uL (0.00-0.20); Basophils % (auto) 0.2 %; Eosinophils # (auto) 0.13 K/uL (0.00-0.50); Eosinophils % (auto) 0.9 %; Hematocrit (blood only) 42.1 % (37.0-47.0); Hemoglobin 12.8 g/dl (12.0-16.0); Immature Granulocytes % (auto) 0.7 %; Lymphocytes # (auto) 1.42 K/uL (1.20-3.40); Mean Corpuscular Hemoglobin 27.1 pg (25.0-34.0); Mean Corpuscular Hgb Conc 30.4 g/dL (32.0-36.0); Mean Corpuscular Volume 89.2 fL (80.0-100.0); Mean Platelet Volume 10.3 fL (9.4-12.4); Monocytes % (auto) 4.9 %; Neutrophils # (auto) 11.86 K/uL (1.40-6.50); Neutrophils % (auto) 83.3 %; Platelet Count 262 K/uL (130-400); RDW Coefficient of Variation 16.6 % (11.5-14.5); RDW Standard Deviation 53.4 fL (36.4-46.3); Red Blood Count 4.72 M/uL (4.20-5.40); White Blood Count 14.24 K/ul (4.8-10.8)
[2024-01-19 07:00] LABS: Estimated Average Glucose 192 mg/dl; Hemoglobin A1C 8.3 % (4.5-5.6)
[2024-01-19] MEDS: BUMETANIDE 1 MG TAB PO SCH (08:17)
[2024-01-19] MEDS ORDERED: LIDOCAINE VISCOUS 2% 15 ML UDC MT PRN (18:20)
--- NOTE | 2024-01-19 18:23 | Hospitalist Progress Note ---
Date of Service January 19, 2024 Assessment & Plan (1) Thrush of mouth and esophagus: Plan: Cause of her sore throat and odynophagia Continue IV fluconazole and clotrimazole trouches po Will add on viscous lidocaine 3 times daily as needed given ongoing pain (2) Acute and chronic respiratory failure with hypoxia: Plan: feels more SOB and using 3LNC and baseline is room air, 2/2 ongoing smoking, COPD, and CHF wean off O2 as is able to to keep pulse ox greater than 89% Continue home prednisone 10mg daily and slow taper off prednisone over the next couple of months no need for antibiotics or IV steroids Counseled on smoking cessation Continue Trilogy AVAPS every night (3) DM II (diabetes mellitus, type II), controlled: Plan: Continue Novolog SSI and Lantus accuchecks last A1C 9.6% in 09/2023 and now down to 8.3% (4) Heart failure with preserved ejection fraction: Plan: Acute on chronic HFpEF, with increased LE edema She traditionally cannot follow a fluid restriction at home but does try to follow low sodium diet Continue on 2000mL fluid restriction which she reports is far less fluid than she typically takes in at home Continue home Bumex 4mg po bid (she states home dose recently changed to 6mg po qAM and 4mg at noon)-give Bumex 1 mg IV x 1 this evening for ongoing edema Creatinine slight bump to 1.3-monitor BMP FOllow daily weights, I/Os, low sodium diet continue aldactone (5) Generalized anxiety disorder: Plan: continue Celexa 20mg daily, Seroquel, xanax (6) Obesity hypoventilation syndrome: Plan: continue Trilogy qhs (7) History of pulmonary embolism: Plan: continue Lovenox 90 mg bid (8) Multiple myeloma: Plan: with a h/o stem cell transplant has appt with Oncology for in Jan With persistent leukocytosis likely related (9) Gout: Plan: continue allopurinol, most recent uric acid level was finally less than 8 colchicine daily (10) COPD (chronic obstructive pulmonary disease): Plan: no acute issues BioFire neg, CXR neg continue maintenance inhalers Plan DVT proph-Lovenox Dispo-continued stay for ongoing difficulty with swallowing and shortness of breath. Can downgrade from PCU likely tomorrow Admission and Anticipated Discharge Date Admission Date: January 17, 2024 Subjective Patient reports ongoing severe sore throat and trouble with painful swallowing. She was hardly able to eat today. Telemetry is sinus tachycardia in the 110s She did wear her BiPAP mask all night Physical Exam Constitutional: WD/WN, vitals as above ENMT: Mouth: + oropharynx abnormality (++erythema tongue/buccal mucosa/posterior OP) and + oral mucosal abnormality (white exudate throat and buccal mucosa) Respiratory: normal respiratory effort Auscultation: + diminished lung sounds (throughout); no crackles, no rhonchi and no wheezes Cardiovascular: Rate/Rhythm: regular rate and regular rhythm Heart Sounds: no murmur Extremities: + edema (2+ pitting edema bilat ankles and distal legs) Psychiatric: A+Ox3, euthymic affect Results & Data Results & Data Vital Signs (Past 12 Hours) Vital Signs Temp Pulse Resp BP Pulse Ox O2 Del Method O2 Flow Rate 01/19/24 13:14 36.7 C 01/19/24 12:30 109 H 13 128/83 96 Nasal Cannula 3 01/19/24 10:00 36.9 C 95 H 13 126/96 98 Nasal Cannula 3 01/19/24 08:00 Nasal Cannula 3 01/19/24 07:33 105 H 14 93 Laboratory Results CBC, BMP, magnesium, hemoglobin A1c reviewed PG Care Time/CCT Total # of Minutes Spent Total Time Spent with Patient: Total time spent is greater than 50% in coordination of care (as documented) at patient's floor/unit and/or counseling patient: Coding Level of Care Code 52849 SUB INP/OBS CARE 2/35MIN Diagnoses Thrush of mouth and esophagus B37.81; B37.0 Acute and chronic respiratory failure with hypoxia J96.21 DM II (diabetes mellitus, type II), controlled E11.9 Chronic heart failure with preserved ejection fraction I50.32 Heart failure chronicity: chronic Generalized anxiety disorder F41.1 Obesity hypoventilation syndrome E66.2 History of pulmonary embolism Z86.711 Multiple myeloma C90.00 Multiple myeloma remission status: unspecified Gout M10.9 COPD (chronic obstructive pulmonary disease) J44.9 COPD type: unspecified COPD (4) Heart failure with preserved ejection fraction Heart failure chronicity: chronic Qualified Code(s): I50.32 - Chronic diastolic (congestive) heart failure (8) Multiple myeloma Multiple myeloma remission status: unspecified Qualified Code(s): C90.00 - Multiple myeloma not having achieved remission (10) COPD (chronic obstructive pulmonary disease) COPD type: unspecified COPD Qualified Code(s): J44.9 - Chronic obstructive pulmonary disease, unspecified
[2024-01-19] MEDS: BUMETANIDE 1 MG in SYRINGE 0 ML IV ONE (18:40)
--- NOTE | 2024-01-19 22:07 | Electrocardiogram Report ---
Test Reason : Blood Pressure : */* mmHG Vent. Rate : 108 BPM Atrial Rate : 108 BPM P-R Int : 144 ms QRS Dur : 74 ms QT Int : 322 ms P-R-T Axes : 35 9 68 degrees QTcB Int : 431 ms Sinus tachycardia Inferior infarct (cited on or before 16-Aug-2023) Nonspecific ST abnormality Abnormal ECG When compared with ECG of 17-Jan-2024 13:07, No significant change was found Confirmed by Roel Willams ([id number]) on 01/19/2024 10:06:49 PM Referred By: REFERRED SELF Confirmed By: Roel Willams
--- NOTE | 2024-01-19 22:07 | Electrocardiogram Report ---
Test Reason : Blood Pressure : */* mmHG Vent. Rate : 97 BPM Atrial Rate : 97 BPM P-R Int : 148 ms QRS Dur : 76 ms QT Int : 354 ms P-R-T Axes : 38 2 65 degrees QTcB Int : 449 ms Normal sinus rhythm Minimal voltage criteria for LVH, may be normal variant Inferior infarct (cited on or before 16-Aug-2023) Abnormal ECG When compared with ECG of 17-Jan-2024 19:53, No significant change was found Confirmed by Roel Willams ([id number] on 01/19/2024 10:07:21 PM Referred By: REFERRED SELF Confirmed By: Roel Willams
[2024-01-20] MEDS: LEVALBUTEROL 1.25 MG/3 ML NEB INH PRN (06:29)
[2024-01-20 07:57] LABS: Basophils # (auto) 0.04 K/uL (0.00-0.20); Basophils % (auto) 0.3 %; Eosinophils # (auto) 0.07 K/uL (0.00-0.50); Eosinophils % (auto) 0.5 %; Hematocrit (blood only) 39.6 % (37.0-47.0); Hemoglobin 12.6 g/dl (12.0-16.0); Immature Granulocytes # (auto) 0.12 K/uL (0.01-0.20); Immature Granulocytes % (auto) 0.8 %; Lymphocytes # (auto) 1.17 K/uL (1.20-3.40); Lymphocytes % (auto) 7.8 %; Mean Corpuscular Hemoglobin 27.4 pg (25.0-34.0); Mean Corpuscular Hgb Conc 31.8 g/dL (32.0-36.0); Mean Corpuscular Volume 86.1 fL (80.0-100.0); Mean Platelet Volume 11.2 fL (9.4-12.4); Monocytes # (auto) 0.96 K/uL (0.11-0.59); Monocytes % (auto) 6.4 %; Neutrophils # (auto) 12.64 K/uL (1.40-6.50); Neutrophils % (auto) 84.2 %; Platelet Count 289 K/uL (130-400); RDW Standard Deviation 49.6 fL (36.4-46.3)
[2024-01-20 08:19] LABS: BUN Creatinine Ratio 36.8 (10-20); Calcium 9.7 mg/dl (8.6-10.3); Creatinine Clr Calc Pharmacy 53.6 ml/min; Est GFR (African American) 59.7 ml/min; Est GFR (Non-African American) 51.5 ml/min; Magnesium 1.8 mg/dl (1.7-2.4); Phosphorus 3.6 mg/dl (2.5-4.9)
[2024-01-20] MEDS: ONDANSETRON INJ 2 MG/ML 2 ML VIAL IV PRN (12:32)
[2024-01-20 13:21] LABS: Base Excess ABG 9.4 mEq/L (-9-1.8); HCO3 ABG 36 mmol/L (19-24); Oxygen Saturation ABG 95.6 % (90-95); PCO2 ABG 57 mmHg (35-46); PO2 ABG 73 mmHg (80-95); pH ABG 7.41 (7.35-7.45)
[2024-01-20 13:22] LABS: Allen Test Pos (Pos)
[2024-01-20] MEDS: BUMETANIDE 4 MG in SYRINGE 0 ML IV SCH (16:47)
--- NOTE | 2024-01-20 17:29 | Hospitalist Progress Note ---
Date of Service January 20, 2024 Assessment & Plan (1) Thrush of mouth and esophagus: Plan: Cause of her sore throat and odynophagia-improving Continue IV fluconazole and clotrimazole trouches po x 10 day course She did not like the viscous lidocaine (2) Acute and chronic respiratory failure with hypoxia: Plan: feels more SOB and using 3LNC and baseline is room air, 2/2 ongoing smoking, COPD, and CHF wean off O2 as is able to to keep pulse ox greater than 89%-is now on room air with walking back to bed from bathroom as per RN Continue home prednisone 10mg daily and slow taper off prednisone over the next couple of months no need for antibiotics or IV steroids Counseled on smoking cessation Continue Trilogy AVAPS every night ABG 01/19 7.41/57/73 on 3LNC, chronic hypercapnia (3) DM II (diabetes mellitus, type II), controlled: Plan: Continue Novolog SSI and Lantus, controlled here COntinue accuchecks last A1C 9.6% in 09/2023 and now down to 8.3% (4) Heart failure with preserved ejection fraction: Plan: Acute on chronic HFpEF, with increased LE edema now improving with IV Bumex She traditionally cannot follow a fluid restriction at home but does try to follow low sodium diet At her request, will increase fluid restriction slightly to 2100mL which she reports is far less fluid than she typically takes in at home Hold home po Bumex 4mg po bid (she states home dose recently changed to 6mg po qAM and 4mg at noon)-convert to Bumex 4mg IV bid Renal function improved-monitor BMP Follow daily weights, I/Os, low sodium diet continue aldactone (5) Generalized anxiety disorder: Plan: Feeling very lethargic the last few days and not herself, sleeping frequently. CO2 acceptable on ABG, no other cause found, is using Trilogy at night and sleeping through night. Her Celexa dose was recently increased to 20mg-possibly from this? Is on lower dose of Suboxone than previous, same dose of xanax for years, no fevers or signs of infection other than oral thrush Will reduce dose of Celexa back to 10mg daily Continue usual Seroquel, xanax (6) Obesity hypoventilation syndrome: Plan: continue Trilogy qhs (7) History of pulmonary embolism: Plan: continue Lovenox 90 mg bid (8) Multiple myeloma: Plan: with a h/o stem cell transplant has appt with Oncology for in Oct With persistent leukocytosis likely related (9) Gout: Plan: continue allopurinol, most recent uric acid level was finally less than 8 colchicine daily (10) COPD (chronic obstructive pulmonary disease): Plan: no acute issues BioFire neg, CXR neg continue maintenance inhalers Plan DVT proph-Lovenox Dispo-continued stay on PCU Admission and Anticipated Discharge Date Admission Date: January 17, 2024 Subjective Pt still feeling very tired the last few days, dropping things today from both hands, not her usual self. Feels pain in hands and like they are swollen. SHe is using her Trilogy throughout the night and tlerating better than previously. ABG obtained shows no acute CO2 retention. Still c/o sore throat and mouth and doesn't like the viscous lidocaine Tele with ST, PVCs, rates 100s-110s Physical Exam Constitutional: WD/WN, vitals as above ENMT: Mouth: + oropharynx abnormality (+erythema tongue/buccal mucosa/posterior OP improved) and + oral mucosal abnormality (white exudate throat mostly resolved) Respiratory: normal respiratory effort Auscultation: + diminished lung sounds (throughout); no crackles, no rhonchi and no wheezes Cardiovascular: Rate/Rhythm: regular rate and regular rhythm Heart Sounds: no murmur Extremities: + edema (1+ pitting edema bilat ankles and distal legs improved from previous) Psychiatric: Orientation: alert and oriented x 3 Affect: + blunted affect Results & Data Results & Data Vital Signs (Past 12 Hours) Vital Signs Temp Pulse Pulse Resp BP Pulse Ox O2 Del Method 01/20/24 15:30 36.3 C L 103 H 22 153/104 H 91 CPAP 01/20/24 11:41 36.3 C L 98 H 18 145/91 H 96 CPAP 01/20/24 11:16 Nasal Cannula 01/20/24 08:06 37.1 C 111 H 16 103/66 94 Nasal Cannula 01/20/24 07:31 114 H 01/20/24 06:30 109 H 20 98 Room Air O2 Flow Rate 01/20/24 15:30 01/20/24 11:41 01/20/24 11:16 3 01/20/24 08:06 2 01/20/24 07:31 01/20/24 06:30 2 Laboratory Results CBC, BMP, ABG, magnesium reviewed PG Care Time/CCT Total # of Minutes Spent Total Time Spent with Patient: Total time spent is greater than 50% in coordination of care (as documented) at patient's floor/unit and/or counseling patient: Coding Level of Care Code 03734 SUB INP/OBS CARE 2/35MIN Diagnoses Thrush of mouth and esophagus B37.81; B37.0 Acute and chronic respiratory failure with hypoxia J96.21 DM II (diabetes mellitus, type II), controlled E11.9 Chronic heart failure with preserved ejection fraction I50.32 Heart failure chronicity: chronic Generalized anxiety disorder F41.1 Obesity hypoventilation syndrome E66.2 History of pulmonary embolism Z86.711 Multiple myeloma C90.00 Multiple myeloma remission status: unspecified Gout M10.9 COPD (chronic obstructive pulmonary disease) J44.9 COPD type: unspecified COPD (4) Heart failure with preserved ejection fraction Heart failure chronicity: chronic Qualified Code(s): I50.32 - Chronic diastolic (congestive) heart failure (8) Multiple myeloma Multiple myeloma remission status: unspecified Qualified Code(s): C90.00 - Multiple myeloma not having achieved remission (10) COPD (chronic obstructive pulmonary disease) COPD type: unspecified COPD Qualified Code(s): J44.9 - Chronic obstructive pulmonary disease, unspecified
[2024-01-20] MEDS: CITALOPRAM 20 MG TAB PO SCH (21:34)
[2024-01-21] MEDS: LANTUS PER UNIT CHARGE SC SCH (09:16)
[2024-01-21 09:21] LABS: Calcium 9.4 mg/dl (8.6-10.3); Magnesium 1.9 mg/dl (1.7-2.4); Potassium 3.7 mmol/L (3.5-5.1)
[2024-01-21 09:26] LABS: BUN Creatinine Ratio 30.1 (10-20); Creatinine Clr Calc Pharmacy 42.7 ml/min; Est GFR (African American) 45.4 ml/min; Est GFR (Non-African American) 39.2 ml/min
[2024-01-21] MEDS: MAGNESIUM SULFATE / D5W 1 GM/100 ML BAG IV ONE (09:36)
[2024-01-21] MEDS: POTASSIUM CHLORIDE CRTAB 20 MEQ TABCR PO STA (09:36)
[2024-01-21] MEDS: IPRATROPIUM BROMIDE NEB SOLN 0.02% 0.5MG/2.5ML VIAL NEB PRN (14:48)
--- NOTE | 2024-01-21 17:53 | Hospitalist Progress Note ---
Date of Service January 21, 2024 Assessment & Plan (1) Thrush of mouth and esophagus: Plan: Cause of her sore throat and odynophagia-much improved with tx with fluconazole, however likely having significant interactions of her meds with fluconazole--> dc dc clotrimazole trouches and start nystatin swish and swallow x 7 more days She did not like the viscous lidocaine (2) Drowsiness: Plan: significantly drowsy for the last 2 days which is very unusual for her ABG 01/19 with chronic CO2 retention but nothing acute. Suspect the fluconazole is causing increased levels of xanax and seroquel as they do interact HOLD Xanax for 24 hrs and then likely resume at lower dose Decrease Seroquel to 100mg hs Discontinue fluconazole Watch for improvement in drowsiness (3) Acute and chronic respiratory failure with hypoxia: Plan: feels more SOB and using 3LNC and baseline is room air, 2/2 ongoing smoking, COPD, and CHF wean off O2 as is able to to keep pulse ox greater than 89%-is now on room air with walking back to bed from bathroom as per RN Continue home prednisone 10mg daily and slow taper off prednisone over the next couple of months no need for antibiotics or IV steroids Counseled on smoking cessation Continue Trilogy AVAPS every night ABG 01/19 7.41/57/73 on 3LNC, chronic hypercapnia (4) DM II (diabetes mellitus, type II), controlled: Plan: Continue Novolog SSI and Lantus, but increase Lantus to 65 units and Novolog increase CF and CR COntinue accuchecks last A1C 9.6% in 09/2023 and now down to 8.3% (5) Heart failure with preserved ejection fraction: Plan: Acute on chronic HFpEF, with increased LE edema now improving with IV Bumex She traditionally cannot follow a fluid restriction at home but does try to follow low sodium diet At her request, increased fluid restriction slightly to 2100mL which she reports is far less fluid than she typically takes in at home Water Pump Servicer rising to 1.4-hold IV Bumex and will resume po Bumex in the AM (she states home dose recently changed to 6mg po qAM and 4mg at noon) Monitor BMP Follow daily weights, I/Os, low sodium diet continue aldactone (6) Generalized anxiety disorder: Plan: Her Celexa dose was recently increased to 20mg-having significant drowsniess now-lower to 10mg Lower dose of Seroquel to 100mg as above and HOLD xanax x 1 day (7) Obesity hypoventilation syndrome: Plan: continue Trilogy qhs (8) History of pulmonary embolism: Plan: continue Lovenox 90 mg bid (9) Multiple myeloma: Plan: with a h/o stem cell transplant has appt with Oncology for in Jan With persistent leukocytosis likely related (10) Gout: Plan: continue allopurinol, most recent uric acid level was finally less than 8 colchicine daily (11) COPD (chronic obstructive pulmonary disease): Plan: no acute issues BioFire neg, CXR neg continue maintenance inhalers Plan DVT proph-Lovenox Dispo-continued stay on PCU Admission and Anticipated Discharge Date Admission Date: January 17, 2024 Subjective Janae remains extremely drowsy, sleeping all day, wakes up easily to talk to me but falls asleep mid sentence. Is worried about why this is happening. Still has a sore throat and feels tight in her chest with her breathing. Tele with ST, NSR Physical Exam Constitutional: WD/WN, vitals as above ENMT: Mouth: + oropharynx abnormality (mild +erythema tongue/buccal mucosa/posterior OP much improved) and + oral mucosal abnormality (white exudate throat resolved) Respiratory: normal respiratory effort Auscultation: + diminished lung sounds (throughout); no crackles, no rhonchi and no wheezes Cardiovascular: Rate/Rhythm: regular rate and regular rhythm Heart Sounds: no murmur Extremities: + edema (1+ pitting edema bilat ankles and distal legs improved from previous) Psychiatric: Orientation: oriented x 3; + not alert (drowsy, frequently falling asleep mid sentence) Affect: + blunted affect Results & Data Results & Data Vital Signs (Past 12 Hours) Vital Signs Temp Pulse Resp BP Pulse Ox O2 Del Method O2 Flow Rate 01/21/24 15:43 37.1 C 104 H 18 111/69 94 Nasal Cannula 2 01/21/24 14:48 105 H 20 95 Nasal Cannula 2 01/21/24 11:36 37.1 C 105 H 16 122/91 94 Nasal Cannula 2 01/21/24 08:00 Nasal Cannula 2 09/26/24 07:51 37.1 C 106 H 18 143/83 H 95 Nasal Cannula 2 Laboratory Results BMP, magnesium, glucose checks reviewed PG Care Time/CCT Total # of Minutes Spent Total Time Spent with Patient: Total time spent is greater than 50% in coordination of care (as documented) at patient's floor/unit and/or counseling patient: Coding Level of Care Code 88566 SUB INP/OBS CARE 2/35MIN Diagnoses Thrush of mouth and esophagus B37.81; B37.0 Drowsiness R40.0 Acute and chronic respiratory failure with hypoxia J96.21 DM II (diabetes mellitus, type II), controlled E11.9 Chronic heart failure with preserved ejection fraction I50.32 Heart failure chronicity: chronic Generalized anxiety disorder F41.1 Obesity hypoventilation syndrome E66.2 History of pulmonary embolism Z86.711 Multiple myeloma C90.00 Multiple myeloma remission status: unspecified Gout M10.9 COPD (chronic obstructive pulmonary disease) J44.9 COPD type: unspecified COPD (5) Heart failure with preserved ejection fraction Heart failure chronicity: chronic Qualified Code(s): I50.32 - Chronic diastolic (congestive) heart failure (9) Multiple myeloma Multiple myeloma remission status: unspecified Qualified Code(s): C90.00 - Multiple myeloma not having achieved remission (11) COPD (chronic obstructive pulmonary disease) COPD type: unspecified COPD Qualified Code(s): J44.9 - Chronic obstructive pulmonary disease, unspecified
[2024-01-21] MEDS: NYSTATIN SUSP 500,000 U/5 ML UDC PO SCH (21:17)
[2024-01-21] MEDS: QUEtiapine FUMARATE 100 MG TABLET PO SCH (22:15)
[2024-01-22 07:15] LABS: BUN Creatinine Ratio 41.6 (10-20); Calcium 9.5 mg/dl (8.6-10.3); Creatinine Clr Calc Pharmacy 69.2 ml/min; Est GFR (African American) 80.5 ml/min; Est GFR (Non-African American) 69.5 ml/min; Magnesium 1.9 mg/dl (1.7-2.4); Potassium 3.5 mmol/L (3.5-5.1)
[2024-01-22] MEDS: LANTUS PER UNIT CHARGE SQ ONE (08:37)
[2024-01-22] MEDS: ALPRAZolam 0.25 MG TABLET PO SCH (17:43)
--- NOTE | 2024-01-22 22:36 | Hospitalist Progress Note ---
Date of Service January 22, 2024 Assessment & Plan (1) Thrush of mouth and esophagus: Plan: Cause of her sore throat and odynophagia-much improved with tx with fluconazole, however likely having significant interactions of her meds with fluconazole--> dc dc clotrimazole trouches and start nystatin swish and swallow x 7 more days She did not like the viscous lidocaine (2) Drowsiness: Plan: significantly drowsy for the last 2 days which is very unusual for her ABG 01/19 with chronic CO2 retention but nothing acute. Suspect the fluconazole is causing increased levels of xanax and seroquel as they do interact Decrease Seroquel to 100mg hs Discontinue fluconazole Watch for improvement in drowsiness Improved on 01/21 cut back xanax to 0.25mg TID (3) Acute and chronic respiratory failure with hypoxia: Plan: feels more SOB and using 3LNC and baseline is room air, 2/2 ongoing smoking, COPD, and CHF wean off O2 as is able to to keep pulse ox greater than 89%-is now on room air with walking back to bed from bathroom as per RN Continue home prednisone 10mg daily and slow taper off prednisone over the next couple of months no need for antibiotics or IV steroids Counseled on smoking cessation Continue Trilogy AVAPS every night ABG 01/19 7.41/57/73 on 3LNC, chronic hypercapnia (4) DM II (diabetes mellitus, type II), controlled: Plan: Continue Novolog SSI and Lantus, but increase Lantus to 65 units and Novolog increase CF and CR COntinue accuchecks last A1C 9.6% in 09/2023 and now down to 8.3% (5) Heart failure with preserved ejection fraction: Plan: Acute on chronic HFpEF, with increased LE edema now improving with IV Bumex She traditionally cannot follow a fluid restriction at home but does try to follow low sodium diet At her request, increased fluid restriction slightly to 2100mL which she reports is far less fluid than she typically takes in at home Adz Worker rising to 1.4-hold IV Bumex and will resume po Bumex in the AM (she states home dose recently changed to 6mg po qAM and 4mg at noon) Monitor BMP Follow daily weights, I/Os, low sodium diet continue aldactone (6) Generalized anxiety disorder: Plan: Her Celexa dose was recently increased to 20mg-having significant drowsniess now-lower to 10mg Lower dose of Seroquel to 100mg as above and HOLD xanax x 1 day (7) Obesity hypoventilation syndrome: Plan: continue Trilogy qhs (8) History of pulmonary embolism: Plan: continue Lovenox 90 mg bid (9) Multiple myeloma: Plan: with a h/o stem cell transplant has appt with Oncology for in Jan With persistent leukocytosis likely related (10) Gout: Plan: continue allopurinol, most recent uric acid level was finally less than 8 colchicine daily (11) COPD (chronic obstructive pulmonary disease): Plan: no acute issues BioFire neg, CXR neg continue maintenance inhalers Plan DVT proph-Lovenox Dispo-continued stay on PCU Admission and Anticipated Discharge Date Admission Date: January 17, 2024 Subjective Janae awoke in early afternoon, asking fro xanax, though nurse states she was drowsy. Saw patient in late afternoon having dinner. She is concerned she may be going through withdrawal. Review of Systems Review of Systems: All systems reviewed & are unremarkable except as noted in HPI & below Physical Exam Constitutional: WD/WN, vitals as above ENMT: Mouth: + oropharynx abnormality (mild +erythema tongue/buccal mucosa/posterior OP much improved) and + oral mucosal abnormality (white exudate throat resolved) Respiratory: normal respiratory effort Auscultation: + diminished lung sounds (throughout); no crackles, no rhonchi and no wheezes Cardiovascular: Rate/Rhythm: regular rate and regular rhythm Heart Sounds: no murmur Extremities: + edema (1+ pitting edema bilat ankles and distal legs improved from previous) Psychiatric: Orientation: alert and oriented x 3 Results & Data Results & Data Vital Signs (Past 12 Hours) Vital Signs Temp Pulse Pulse Resp BP Pulse Ox O2 Del Method 01/22/24 20:59 36.4 C L 87 116/77 98 Nasal Cannula 01/22/24 15:07 57 L 17 93 01/22/24 15:03 37.0 C 110 H 24 129/77 87 L Nasal Cannula 01/22/24 11:23 37.0 C 97 H 20 124/87 94 Nasal Cannula O2 Flow Rate 01/22/24 20:59 3 01/22/24 15:07 2 01/22/24 15:03 3 01/22/24 11:23 2.0 PG Care Time/CCT Total # of Minutes Spent Total Time Spent with Patient: Total time spent is greater than 50% in coordination of care (as documented) at patient's floor/unit and/or counseling patient: Coding Level of Care Code 00197 SUB INP/OBS CARE 2/35MIN Diagnoses Thrush of mouth and esophagus B37.81; B37.0 Drowsiness R40.0 Acute and chronic respiratory failure with hypoxia J96.21 DM II (diabetes mellitus, type II), controlled E11.9 Chronic heart failure with preserved ejection fraction I50.32 Heart failure chronicity: chronic Generalized anxiety disorder F41.1 Obesity hypoventilation syndrome E66.2 History of pulmonary embolism Z86.711 Multiple myeloma C90.00 Multiple myeloma remission status: unspecified Gout M10.9 COPD (chronic obstructive pulmonary disease) J44.9 COPD type: unspecified COPD (5) Heart failure with preserved ejection fraction Heart failure chronicity: chronic Qualified Code(s): I50.32 - Chronic diastolic (congestive) heart failure (9) Multiple myeloma Multiple myeloma remission status: unspecified Qualified Code(s): C90.00 - Multiple myeloma not having achieved remission (11) COPD (chronic obstructive pulmonary disease) COPD type: unspecified COPD Qualified Code(s): J44.9 - Chronic obstructive pulmonary disease, unspecified
[2024-01-23 07:57] LABS: Hematocrit (blood only) 38.5 % (37.0-47.0); Hemoglobin 12.2 g/dl (12.0-16.0); Mean Corpuscular Hgb Conc 31.7 g/dL (32.0-36.0); Mean Corpuscular Volume 85.2 fL (80.0-100.0); Mean Platelet Volume 10.6 fL (9.4-12.4); Platelet Count 303 K/uL (130-400); RDW Coefficient of Variation 15.9 % (11.5-14.5); RDW Standard Deviation 48.9 fL (36.4-46.3); Red Blood Count 4.52 M/uL (4.20-5.40); White Blood Count 9.48 K/ul (4.8-10.8)
[2024-01-23] MEDS ORDERED: SOD PHOSPHATE/SOD BIPHOSPHATE ENEMA 132 ML BTL PR PRN (08:16)
[2024-01-23 08:17] LABS: BUN Creatinine Ratio 44.3 (10-20); Calcium 9.2 mg/dl (8.6-10.3); Est GFR (African American) 107.6 ml/min; Est GFR (Non-African American) 92.9 ml/min; Potassium 3.2 mmol/L (3.5-5.1)
[2024-01-23] MEDS: DOCUSATE SODIUM/SENNA 50/8.6MG TAB PO SCH (09:05)
[2024-01-23] MEDS: POTASSIUM CHLORIDE CRTAB 20 MEQ TABCR PO STA (10:00)
--- NOTE | 2024-01-23 13:04 | Hospitalist Progress Note ---
Date of Service January 23, 2024 Assessment & Plan (1) Thrush of mouth and esophagus: Plan: Cause of her sore throat and odynophagia-much improved with tx with fluconazole, however likely having significant interactions of her meds with fluconazole--> discontinued Continue nystatin swish and swallow x 14 day course She did not like the viscous lidocaine and this was discontinued (2) Drowsiness: Plan: significantly drowsy for since admission which is very unusual for her-falling asleep midsentence and sleeping all day ABG 01/19 with chronic CO2 retention but nothing acute. Suspected the fluconazole was causing increased levels of xanax and seroquel as they do interact Decreased Seroquel to 100mg hs and held Xanax x 1 day Resumed Xanax at lower dose of 0.25 Mg p.o. 3 times daily Remains drowsy somewhat but definitely improved-will hold Seroquel for tonight Discontinued fluconazole Continue to monitor for improvement (3) Acute and chronic respiratory failure with hypoxia: Plan: feels more SOB and using 3LNC and baseline is room air, 2/2 ongoing smoking, COPD, and CHF wean off O2 as is able to to keep pulse ox greater than 89%-is now on room air with walking back to bed from bathroom as per RN Continue home prednisone 10mg daily and slow taper off prednisone over the next couple of months no need for antibiotics or IV steroids Counseled on smoking cessation Continue Trilogy AVAPS every night ABG 01/19 7.41/57/73 on 3LNC, chronic hypercapnia (4) DM II (diabetes mellitus, type II), controlled: Plan: Continue Novolog SSI and Lantus, but increased Lantus to 65 units and Novolog increase CF and CR Had hypoglycemia on the morning of 01/21 and only received Lantus 15 units Now with hyperglycemia again today-received full dose of Lantus COntinue accuchecks last A1C 9.6% in 09/2023 and now down to 8.3% (5) Heart failure with preserved ejection fraction: Plan: Acute on chronic HFpEF, with increased LE edema now improving with IV Bumex She traditionally cannot follow a fluid restriction at home but does try to follow low sodium diet At her request, increased fluid restriction slightly to 2100mL which she reports is far less fluid than she typically takes in at home Solution Specialist Maria to 1.4-now returned to normal at 0.7 after holding IV Bumex, resuming po Bumex home dose 4 Mg p.o. twice daily Monitor BMP Follow daily weights, I/Os, low sodium diet continue aldactone Hypokalemia-replace with 40 mEq potassium chloride (6) Generalized anxiety disorder: Plan: Her Celexa dose was recently increased to 20mg-having significant drowsiness which may have been due to interaction of Seroquel and Xanax with fluconazole - lowered dose for now to 10mg Hold Seroquel Reduced Xanax to 0.25 Mg p.o. 3 times daily (7) Obesity hypoventilation syndrome: Plan: continue Trilogy qhs (8) History of pulmonary embolism: Plan: continue Lovenox 90 mg bid (9) Multiple myeloma: Plan: with a h/o stem cell transplant has appt with Oncology for in Jan With persistent leukocytosis likely related (10) Gout: Plan: continue allopurinol, most recent uric acid level was finally less than 8 colchicine was held when creatinine maria slightly-resume if renal function remains stable (11) COPD (chronic obstructive pulmonary disease): Plan: no acute issues BioFire neg, CXR neg continue maintenance inhalers Plan DVT proph-Lovenox Dispo-continued stay but can downgrade to medical floor Admission and Anticipated Discharge Date Admission Date: January 17, 2024 Subjective Patient still remains somewhat drowsy today but much improved since I saw her 2 days ago. She is not falling asleep while talking to me. She still reports painful swallowing into the chest but the throat perhaps is a bit better. Complains of constipation but then did have a small bowel movement this morning. Telemetry with normal sinus rhythm and sinus tachycardia with PACs with rates in the 90s to 100s Physical Exam Constitutional: WD/WN, vitals as above ENMT: Mouth: + oropharynx abnormality (mild +erythema tongue/buccal mucosa/posterior OP much improved) and + oral mucosal abnormality (white exudate throat resolved) Respiratory: normal respiratory effort Auscultation: + diminished lung sounds (throughout); no crackles, no rhonchi and no wheezes Cardiovascular: Rate/Rhythm: regular rate and regular rhythm Heart Sounds: no murmur Extremities: + edema (1+ pitting edema bilat ankles and distal legs improved from previous) Psychiatric: Orientation: alert and oriented x 3 Affect: + blunted affect Results & Data Results & Data Vital Signs (Past 12 Hours) Vital Signs Temp Pulse Resp BP BP Pulse Ox O2 Del Method 01/23/24 11:08 36.7 C 108 H 16 100/67 94 Nasal Cannula 01/23/24 08:00 Nasal Cannula 01/23/24 07:16 36.8 C 95 H 16 130/82 91 CPAP 01/23/24 04:16 36.4 C L 89 17 135/94 94 CPAP O2 Flow Rate 01/23/24 11:08 2.0 01/23/24 08:00 2 01/23/24 07:16 01/23/24 04:16 PG Care Time/CCT Total # of Minutes Spent Total Time Spent with Patient: Total time spent is greater than 50% in coordination of care (as documented) at patient's floor/unit and/or counseling patient: Coding Level of Care Code 36211 SUB INP/OBS CARE 2/35MIN Diagnoses Thrush of mouth and esophagus B37.81; B37.0 Drowsiness R40.0 Acute and chronic respiratory failure with hypoxia J96.21 DM II (diabetes mellitus, type II), controlled E11.9 Chronic heart failure with preserved ejection fraction I50.32 Heart failure chronicity: chronic Generalized anxiety disorder F41.1 Obesity hypoventilation syndrome E66.2 History of pulmonary embolism Z86.711 Multiple myeloma C90.00 Multiple myeloma remission status: unspecified Gout M10.9 COPD (chronic obstructive pulmonary disease) J44.9 COPD type: unspecified COPD (5) Heart failure with preserved ejection fraction Heart failure chronicity: chronic Qualified Code(s): I50.32 - Chronic diastolic (congestive) heart failure (9) Multiple myeloma Multiple myeloma remission status: unspecified Qualified Code(s): C90.00 - Multiple myeloma not having achieved remission (11) COPD (chronic obstructive pulmonary disease) COPD type: unspecified COPD Qualified Code(s): J44.9 - Chronic obstructive pulmonary disease, unspecified
[2024-01-24 06:35] LABS: BUN Creatinine Ratio 42.7 (10-20); Calcium 9.2 mg/dl (8.6-10.3); Creatinine Clr Calc Pharmacy 81.1 ml/min; Est GFR (Non-African American) 85.4 ml/min; Magnesium 1.7 mg/dl (1.7-2.4); Potassium 3.4 mmol/L (3.5-5.1)
[2024-01-24] MEDS: POTASSIUM CHLORIDE CRTAB 20 MEQ TABCR PO STA (10:09)
[2024-01-24] MEDS: MAGNESIUM SULFATE / D5W 1 GM/100 ML BAG IV ONE (10:10)
--- NOTE | 2024-01-24 14:50 | Hospitalist Progress Note ---
Date of Service January 24, 2024 Assessment & Plan (1) Thrush of mouth and esophagus: Plan: Cause of her sore throat and odynophagia-much improved with tx with fluconazole, however likely having significant interactions of her meds with fluconazole--> discontinued Continue nystatin swish and swallow x 14 day course Still has odynophagia in chest She did not like the viscous lidocaine and this was discontinued (2) Drowsiness: Plan: significantly drowsy since admission which is very unusual for her-falling asleep mid sentence and sleeping all day ABG 01/19 with chronic CO2 retention but nothing acute. Suspected the fluconazole was causing increased levels of Xanax and Seroquel as they do interact Decreased Seroquel to 100mg hs and held Xanax x 1 day Resumed Xanax at lower dose of 0.25 Mg p.o. 3 times daily Drowsiness now definitely improved but still sleeping more than usual during the day-will continue to hold Seroquel and reassess daily Discontinued fluconazole Continue to monitor for improvement (3) Acute and chronic respiratory failure with hypoxia: Plan: feels more SOB and using 3LNC and baseline is room air, 2/2 ongoing smoking, COPD, and CHF Is now weaned off O2 to room air Home prednisone 10mg daily-will begin to slowly taper off prednisone over the next couple of months-go down to 5mg daily tomorrow no need for antibiotics or IV steroids Counseled on smoking cessation Continue Trilogy AVAPS every night ABG 01/19 7.41/57/73 on 3LNC, chronic hypercapnia (4) DM II (diabetes mellitus, type II), controlled: Plan: With ongoing hyperglycemia Increase Lantus dose and split between bid dosing--> increase to 38 units bid, tighten Novolog to CF 20, CR 12 Continue accuchecks last A1C 9.6% in 09/2023 and now down to 8.3% (5) Heart failure with preserved ejection fraction: Plan: Acute on chronic HFpEF, with increased LE edema now improving with IV Bumex She traditionally cannot follow a fluid restriction at home but does try to follow low sodium diet At her request, increased fluid restriction slightly to 2100mL which she reports is far less fluid than she typically takes in at home Coordinating Producer Maria to 1.4-now returned to normal at 0.7 after holding IV Bumex, resuming po Bumex home dose 4 Mg p.o. twice daily Monitor BMP Follow daily weights, I/Os, low sodium diet continue aldactone Hypokalemia-replace again with 40 mEq potassium chloride Give 1 gram IV magnesium for low normal Mag-follow level in AM (6) Generalized anxiety disorder: Plan: Her Celexa dose was recently increased to 20mg-having significant drowsiness which may have been due to interaction of Seroquel and Xanax with fluconazole - lowered dose for now to 10mg Continue to hold Seroquel Reduced Xanax to 0.25 Mg p.o. 3 times daily (7) Obesity hypoventilation syndrome: Plan: continue Trilogy qhs (8) History of pulmonary embolism: Plan: continue Lovenox 90 mg bid (9) Multiple myeloma: Plan: with a h/o stem cell transplant has appt with Oncology for in Jan With persistent leukocytosis likely related (10) Gout: Plan: continue allopurinol, most recent uric acid level was finally less than 8 colchicine was held when creatinine maria slightly-resume if renal function remains stable (11) COPD (chronic obstructive pulmonary disease): Plan: no acute issues BioFire neg, CXR neg continue maintenance inhalers reduce prednisone dose to 5mg daily for tomorrow Plan DVT proph-Lovenox Dispo-continued stay medical floor Admission and Anticipated Discharge Date Admission Date: January 17, 2024 Subjective Still mildly drowsy but definitely overall much more awake and talkative today. Still has painful swallowing in her chest Mostly talked for 30 min about how frustrated she is with her living situation Physical Exam Constitutional: WD/WN, vitals as above Respiratory: normal respiratory effort Cardiovascular: Extremities: + edema (1+ pitting edema bilat ankles and distal legs improved from previous) Psychiatric: Orientation: alert and oriented x 3 Affect: + anxious affect Mood: + anxious mood Results & Data Results & Data Vital Signs (Past 12 Hours) Vital Signs Temp Pulse Pulse Resp BP Pulse Ox O2 Del Method 01/24/24 07:56 Room Air 01/24/24 07:37 36.4 C L 91 H 18 108/80 91 Room Air 01/24/24 03:26 90 12 98 O2 Flow Rate 01/24/24 07:56 01/24/24 07:37 01/24/24 03:26 2 Laboratory Results BMP, magnesium reviewed PG Care Time/CCT Total # of Minutes Spent Total Time Spent with Patient: Total time spent is greater than 50% in coordination of care (as documented) at patient's floor/unit and/or counseling patient: Coding Level of Care Code 52139 SUB INP/OBS CARE 2/35MIN Diagnoses Thrush of mouth and esophagus B37.81; B37.0 Drowsiness R40.0 Acute and chronic respiratory failure with hypoxia J96.21 DM II (diabetes mellitus, type II), controlled E11.9 Chronic heart failure with preserved ejection fraction I50.32 Heart failure chronicity: chronic Generalized anxiety disorder F41.1 Obesity hypoventilation syndrome E66.2 History of pulmonary embolism Z86.711 Multiple myeloma C90.00 Multiple myeloma remission status: unspecified Gout M10.9 COPD (chronic obstructive pulmonary disease) J44.9 COPD type: unspecified COPD (5) Heart failure with preserved ejection fraction Heart failure chronicity: chronic Qualified Code(s): I50.32 - Chronic diastolic (congestive) heart failure (9) Multiple myeloma Multiple myeloma remission status: unspecified Qualified Code(s): C90.00 - Multiple myeloma not having achieved remission (11) COPD (chronic obstructive pulmonary disease) COPD type: unspecified COPD Qualified Code(s): J44.9 - Chronic obstructive pulmonary disease, unspecified
[2024-01-24] MEDS ORDERED: LANTUS PER UNIT CHARGE SC SCH (21:00)
[2024-01-25 08:29] LABS: BUN Creatinine Ratio 35.4 (10-20); Calcium 9.6 mg/dl (8.6-10.3); Creatinine Clr Calc Pharmacy 74.4 ml/min; Est GFR (African American) 88.9 ml/min; Est GFR (Non-African American) 76.7 ml/min; Magnesium 1.8 mg/dl (1.7-2.4); Potassium 3.7 mmol/L (3.5-5.1)
[2024-01-25] MEDS: LANTUS PER UNIT CHARGE SC SCH (08:36)
[2024-01-25] MEDS: COLCHICINE 0.6 MG TAB PO SCH (08:41)
[2024-01-25] MEDS: predniSONE 5 MG TAB PO SCH (08:41)
--- NOTE | 2024-01-25 19:30 | Hospitalist Progress Note ---
Date of Service January 25, 2024 Assessment & Plan (1) Thrush of mouth and esophagus: Plan: Cause of her sore throat and odynophagia-much improved with tx with fluconazole, however was having significant interactions of her meds with fluconazole--> discontinued fluconazole Continue nystatin swish and swallow x 14 day course Still has odynophagia in chest but is slowly improving She did not like the viscous lidocaine and this was discontinued (2) Drowsiness: Plan: significantly drowsy since admission which is very unusual for her-falling asleep mid sentence and sleeping all day ABG 01/19 with chronic CO2 retention but nothing acute. Suspected the fluconazole was causing increased levels of Xanax and Seroquel as they do interact Decreased Seroquel to 100mg hs x 2 nights and then held completely x 2 nights--> now c/o significant insomnia--resume Seroquel 50mg hs Held Xanax x 1 day, then resumed at lower dose of 0.25mg po tid--> with ongoing drowsiness, will reduce further to 0.25mg po BID Discontinued fluconazole Continue to monitor for improvement (3) Acute and chronic respiratory failure with hypoxia: Plan: On admission, felt more SOB and using 3LNC and baseline is room air, 2/2 ongoing smoking, COPD, and CHF Is now weaned off O2 to room air and no further respiratory distress Home prednisone 10mg daily-now will slowly taper off prednisone over the next couple of months-decreased to 5mg daily -should remain there for 1 month no need for antibiotics or IV steroids Counseled on smoking cessation Continue Trilogy AVAPS every night ABG 01/19 7.41/57/73 on 3LNC, chronic hypercapnia (4) DM II (diabetes mellitus, type II), controlled: Plan: With ongoing hyperglycemia which is now improving but not yet at goal Continue Lantus 65 units qAM and further tighten Novolog Continue accuchecks last A1C 9.6% in 09/2023 and now down to 8.3% (5) Heart failure with preserved ejection fraction: Plan: Acute on chronic HFpEF, with increased LE edema now slightly improved with IV Bumex She traditionally cannot follow a fluid restriction at home but does try to follow low sodium diet Does have a venous stasis component and sits in chair with legs dangling all day long At her request, increased fluid restriction slightly to 2100mL which she reports is far less fluid than she typically takes in at home School Photographer Maria to 1.4-now returned to normal at 0.7 after holding IV Bumex, resuming po Bumex home dose 4 Mg p.o. twice daily Monitor BMP Follow daily weights, I/Os, low sodium diet continue aldactone Hypokalemia-replace K and Mag as needed to keep above 4 and 2, respectively. Give both today (6) Generalized anxiety disorder: Plan: Her Celexa dose was recently increased to 20mg-having significant drowsiness which may have been due to interaction of Seroquel and Xanax with fluconazole - lowered dose for now to 10mg Resume Seroquel at only 50mg qhs Reduced Xanax to 0.25 Mg p.o. 2 times daily (7) Obesity hypoventilation syndrome: Plan: continue Trilogy qhs (8) History of pulmonary embolism: Plan: continue Lovenox 90 mg bid (9) Multiple myeloma: Plan: with a h/o stem cell transplant has appt with Oncology for in Jan With persistent leukocytosis likely related (10) Gout: Plan: continue allopurinol, most recent uric acid level was finally less than 8 colchicine was held when creatinine maria slightly-resumed now that renal function remains stable (11) COPD (chronic obstructive pulmonary disease): Plan: no acute issues BioFire neg, CXR neg continue maintenance inhalers reduced prednisone dose to 5mg daily Plan DVT proph-Lovenox Dispo-continued stay medical floor, possible dc to home in 1-2 days after daytime significant drowsiness is improved Admission and Anticipated Discharge Date Admission Date: January 17, 2024 Subjective Pt reports she didn't sleep all night last night and has been sleeping all day today. She thinks this is from not getting her Seroquel. RN appropriately held her afternoon dose of xanax as pt was sleeping all day. Pt now agreeable to decreasing dose of xanax to bid. Feels her sore throat and chest pain with swallowing is improving. Physical Exam Constitutional: WD/WN, vitals as above ENMT: Mouth: + oropharynx abnormality (mild +erythema tongue/buccal mucosa/posterior OP much improved) and + oral mucosal abnormality (white exudate throat resolved) Respiratory: normal respiratory effort Cardiovascular: Extremities: + edema (1+ pitting edema bilat ankles and distal legs improved from previous) Psychiatric: Orientation: alert and oriented x 3 Affect: + blunted affect Mood: + anxious mood Results & Data Results & Data Vital Signs (Past 12 Hours) Vital Signs Temp Pulse Resp BP Pulse Ox O2 Del Method 01/25/24 15:47 36.3 C L 102 H 18 118/81 92 Room Air 01/25/24 10:25 Room Air Laboratory Results BMP, magnesium reviewed PG Care Time/CCT Total # of Minutes Spent Total Time Spent with Patient: Total time spent is greater than 50% in coordination of care (as documented) at patient's floor/unit and/or counseling patient: Coding Level of Care Code 06959 SUB INP/OBS CARE 2/35MIN Diagnoses Thrush of mouth and esophagus B37.81; B37.0 Drowsiness R40.0 Acute and chronic respiratory failure with hypoxia J96.21 DM II (diabetes mellitus, type II), controlled E11.9 Chronic heart failure with preserved ejection fraction I50.32 Heart failure chronicity: chronic Generalized anxiety disorder F41.1 Obesity hypoventilation syndrome E66.2 History of pulmonary embolism Z86.711 Multiple myeloma C90.00 Multiple myeloma remission status: unspecified Gout M10.9 COPD (chronic obstructive pulmonary disease) J44.9 COPD type: unspecified COPD (5) Heart failure with preserved ejection fraction Heart failure chronicity: chronic Qualified Code(s): I50.32 - Chronic diastolic (congestive) heart failure (9) Multiple myeloma Multiple myeloma remission status: unspecified Qualified Code(s): C90.00 - Multiple myeloma not having achieved remission (11) COPD (chronic obstructive pulmonary disease) COPD type: unspecified COPD Qualified Code(s): J44.9 - Chronic obstructive pulmonary disease, unspecified
[2024-01-25] MEDS: QUEtiapine FUMARATE 25 MG TABLET PO SCH (20:27)
[2024-01-25] MEDS: ALPRAZolam 0.25 MG TABLET PO SCH (20:27)
[2024-01-26 06:32] LABS: Calcium 9.6 mg/dl (8.6-10.3); Creatinine Clr Calc Pharmacy 66.3 ml/min; Est GFR (African American) 77.3 ml/min; Est GFR (Non-African American) 66.7 ml/min; Magnesium 1.8 mg/dl (1.7-2.4); Potassium 3.6 mmol/L (3.5-5.1)
--- NOTE | 2024-01-26 08:45 | Hospitalist Progress Note ---
Date of Service January 26, 2024 Assessment & Plan (1) Thrush of mouth and esophagus: Plan: Cause of her sore throat and odynophagia-much improved with tx with fluconazole, however was having significant interactions of her meds with fluconazole--> discontinued fluconazole Continue nystatin swish and swallow x 14 day course Still has odynophagia in chest but is slowly improving She did not like the viscous lidocaine and this was discontinued (2) Drowsiness: Plan: significantly drowsy since admission which is very unusual for her-falling asleep mid sentence and sleeping all day ABG 01/19 with chronic CO2 retention but nothing acute. Suspected the fluconazole was causing increased levels of Xanax and Seroquel as they do interact Decreased Seroquel to 100mg hs x 2 nights and then held completely x 2 nights--> now c/o significant insomnia--resume Seroquel 50mg hs Held Xanax x 1 day, then resumed at lower dose of 0.25mg po tid--> with ongoing drowsiness, will reduce further to 0.25mg po BID Discontinued fluconazole (3) Acute and chronic respiratory failure with hypoxia: Plan: On admission, felt more SOB and using 3LNC and baseline is room air, 2/2 ongoing smoking, COPD, and CHF Is now weaned off O2 to room air and no further respiratory distress Home prednisone 10mg daily-now will slowly taper off prednisone over the next couple of months-decreased to 5mg daily -should remain there for 1 month no need for antibiotics or IV steroids Counseled on smoking cessation Continue Trilogy AVAPS every night for obesity hypoventilation syndrome ABG 01/19 7.41/57/73 on 3LNC, chronic hypercapnia (4) DM II (diabetes mellitus, type II), controlled: Plan: With ongoing hyperglycemia which is now improving but not yet at goal Continue Lantus 65 units qAM and further tighten Novolog Continue accuchecks last A1C 9.6% in 09/2023 and now down to 8.3% (5) Heart failure with preserved ejection fraction: Plan: Acute on chronic HFpEF, with increased LE edema now slightly improved with IV Bumex She traditionally cannot follow a fluid restriction at home but does try to follow low sodium diet Does have a venous stasis component and sits in chair with legs dangling all day long At her request, increased fluid restriction slightly to 2100mL which she reports is far less fluid than she typically takes in at home Child Care Leader Anisha to 1.4-now returned to normal at 0.7 after holding IV Bumex, resuming po Bumex home dose 4 Mg p.o. twice daily continue Aldactone Hypokalemia-replace K and Mag as needed (6) Generalized anxiety disorder: Plan: Her Celexa dose was recently increased to 20mg-having significant drowsiness which may have been due to interaction of Seroquel and Xanax with fluconazole - lowered dose for now to 10mg Resume Seroquel at only 50mg qhs Reduced Xanax to 0.25 Mg p.o. 2 times daily (7) History of pulmonary embolism: Plan: continue Lovenox 90 mg bid Plan History of multiple myeloma status post stem cell typically mildly elevated white blood cell count History of gout with recent flares continues on allopurinol Admission and Anticipated Discharge Date Admission Date: January 17, 2024 Subjective Patient is more daytime drowsiness and sleeping. I encouraged her to wear her CPAP during the day. She has no focal complaints is concerned about her lower extremity swelling which is chronic dependent edema for her. Physical Exam Physical Exam: When awakened and after few moments her mental status is cleared lungs are diminished at the bases with some expiratory wheezes Card exam is regular without significant murmurs Extremities are with 2+ edema Results & Data Results & Data Vital Signs (Past 12 Hours) Vital Signs Temp Pulse Pulse Resp BP Pulse Ox O2 Del Method 01/26/24 07:11 97.9 F 113 H 18 117/75 90 Room Air 01/25/24 22:50 107 H 12 91 01/25/24 22:17 101 H 16 92 Room Air O2 Flow Rate 01/26/24 07:11 01/25/24 22:50 2 01/25/24 22:17 Laboratory Results Reviewed Chem-7 reviewed magnesium reviewed [id number] glucose PG Care Time/CCT Total # of Minutes Spent Total Time Spent with Patient: Total time spent is greater than 50% in coordination of care (as documented) at patient's floor/unit and/or counseling patient: Coding Level of Care Code 91782 SUB INP/OBS CARE 2/35MIN Diagnoses Thrush of mouth and esophagus B37.81; B37.0 Drowsiness R40.0 Acute and chronic respiratory failure with hypoxia J96.21 DM II (diabetes mellitus, type II), controlled E11.9 Chronic heart failure with preserved ejection fraction I50.32 Heart failure chronicity: chronic Generalized anxiety disorder F41.1 History of pulmonary embolism Z86.711 (5) Heart failure with preserved ejection fraction Heart failure chronicity: chronic Qualified Code(s): I50.32 - Chronic diastolic (congestive) heart failure
[2024-01-26] MEDS ORDERED: POLYETHYLENE (MIRALAX) 17 GM PACK PO ONE (19:08)
[2024-01-26] MEDS: FAMOTIDINE 20 MG TAB PO SCH (21:21)
[2024-01-26] MEDS: POLYETHYLENE (MIRALAX) 17 GM PACK PO SCH (21:56)
[2024-01-27] MEDS: DOCUSATE SODIUM/SENNA 50/8.6MG TAB PO SCH (08:50)
[2024-01-27 12:16] LABS: Hematocrit (blood only) 39.8 % (37.0-47.0); Hemoglobin 12.9 g/dl (12.0-16.0); Mean Corpuscular Hgb Conc 32.4 g/dL (32.0-36.0); Mean Corpuscular Volume 83.4 fL (80.0-100.0); Mean Platelet Volume 10.2 fL (9.4-12.4); Platelet Count 378 K/uL (130-400); RDW Coefficient of Variation 15.9 % (11.5-14.5); RDW Standard Deviation 47.8 fL (36.4-46.3); Red Blood Count 4.77 M/uL (4.20-5.40); White Blood Count 13.83 K/ul (4.8-10.8)
[2024-01-27 12:29] LABS: BUN Creatinine Ratio 32.6 (10-20); Calcium 9.3 mg/dl (8.6-10.3); Creatinine Clr Calc Pharmacy 47.3 ml/min; Potassium 3.6 mmol/L (3.5-5.1)
[2024-01-27] MEDS: PANTOprazole 40 MG in SYRINGE 0 ML IV ONE (13:04)
[2024-01-27] MEDS: POLYETHYLENE (MIRALAX) 17 GM PACK PO ONE (13:23)
--- NOTE | 2024-01-27 17:18 | Hospitalist Progress Note ---
Date of Service January 27, 2024 Assessment & Plan (1) Thrush of mouth and esophagus: Plan: Cause of her sore throat and odynophagia-resolved. Continue nystatin swish and swallow x 14 day course Epigastric distress seems to be more like GI related and esophagus. Instituting Protonix twice daily (2) Drowsiness: Plan: significantly drowsy improved with reduction of medications and reinforcement of noninvasive positive pressure ventilation use even with napping. Suspected the fluconazole was causing increased levels of Xanax and Seroquel as they do interact Decreased Seroquel to 100mg hs x 2 nights and then held completely x 2 nights--> now c/o significant insomnia--resume Seroquel 50mg hs Held Xanax x 1 day, then resumed at lower dose of 0.25mg po tid--> with ongoing drowsiness, will reduce further to 0.25mg po BID Discontinued fluconazole (3) Acute and chronic respiratory failure with hypoxia: Plan: On admission, felt more SOB and using 3LNC and baseline is room air, 2/2 ongoing smoking, COPD, and heart failure preserved ejection fraction Is now weaned off O2 to room air and no further respiratory distress Home prednisone 10mg daily-now will slowly taper off prednisone over the next couple of months-decreased to 5mg daily -should remain there for 1 month no need for antibiotics or IV steroids Counseled on smoking cessation Continue Trilogy AVAPS every night and with now for obesity hypoventilation syndrome ABG 01/19 7.41/57/73 on 3LNC, chronic hypercapnia (4) DM II (diabetes mellitus, type II), controlled: Plan: With ongoing hyperglycemia which is now improving but not yet at goal Continue Lantus 65 units qAM and further tighten Novolog Continue accuchecks last A1C 9.6% in 09/2023 and now down to 8.3% (5) Heart failure with preserved ejection fraction: Plan: Acute on chronic HFpEF, with increased LE edema now slightly improved with IV Bumex She traditionally cannot follow a fluid restriction at home but does try to follow low sodium diet Does have a venous stasis component and sits in chair with legs dangling all day long Patient now with slightly rising BUN and creatinine will hold Bumex in the morning of 01/27 and reassess volume status Patient is hyponatremic at this point we will follow for trend Hypokalemia-replace K and Mag as needed (6) Generalized anxiety disorder: Plan: Her Celexa dose was recently increased to 20mg-having significant drowsiness which may have been due to interaction of Seroquel and Xanax with fluconazole - lowered dose for now to 10mg Resume Seroquel at only 50mg qhs Reduced Xanax to 0.25 Mg p.o. 2 times daily (7) History of pulmonary embolism: Plan: continue Lovenox 90 mg bid Plan History of multiple myeloma status post stem cell typically mildly elevated white blood cell count History of gout with recent flares continues on allopurinol Admission and Anticipated Discharge Date Admission Date: January 17, 2024 Subjective Patient is much less drowsy was encouraged to use her CPAP during daily naps also. Thrush is improving. Patient still with some epigastric discomfort describes some darkened stool but she is having marked constipation and required an enema. Still with issues with regard to peripheral edema which is chronic for her Physical Exam Physical Exam: Awake alert appropriate. 2+ lower extremity edema. Epigastric distress on examination. Card exam is regular lungs with diminished air movement no focal air loss Results & Data Results & Data Vital Signs (Past 12 Hours) Vital Signs Temp Pulse Resp BP Pulse Ox O2 Del Method 01/27/24 14:33 97.7 F 100 H 18 101/72 94 Room Air 01/27/24 07:32 97.9 F 106 H 20 107/71 93 Room Air 01/27/24 07:30 Room Air Laboratory Results Reviewed CBC reviewed chemistry PG Care Time/CCT Total # of Minutes Spent Total Time Spent with Patient: Total time spent is greater than 50% in coordination of care (as documented) at patient's floor/unit and/or counseling patient: Coding Level of Care Code 39283 SUB INP/OBS CARE 3/50MIN Diagnoses Thrush of mouth and esophagus B37.81; B37.0 Drowsiness R40.0 Acute and chronic respiratory failure with hypoxia J96.21 DM II (diabetes mellitus, type II), controlled E11.9 Chronic heart failure with preserved ejection fraction I50.32 Heart failure chronicity: chronic Generalized anxiety disorder F41.1 History of pulmonary embolism Z86.711 (5) Heart failure with preserved ejection fraction Heart failure chronicity: chronic Qualified Code(s): I50.32 - Chronic diastolic (congestive) heart failure
[2024-01-27] MEDS: PANTOprazole 40 MG TAB PO SCH (21:08)
[2024-01-28 10:25] LABS: Hemoglobin 12.4 g/dl (12.0-16.0); Mean Corpuscular Hemoglobin 26.3 pg (25.0-34.0); Mean Corpuscular Volume 84.9 fL (80.0-100.0); Mean Platelet Volume 10.2 fL (9.4-12.4); Platelet Count 356 K/uL (130-400); RDW Coefficient of Variation 15.7 % (11.5-14.5); RDW Standard Deviation 47.8 fL (36.4-46.3); Red Blood Count 4.71 M/uL (4.20-5.40); White Blood Count 14.36 K/ul (4.8-10.8)
--- NOTE | 2024-01-28 10:46 | Gastrointestinal Consultation ---
Date of Consultation January 28, 2024 Assessment & Plan (1) Hematochezia: 63 year old female w/ history of ovarian CA, recurrent admissions for COPD exacerbation, CHF, T2DM, acute on chronic respiratory failure with hypoxia, gout, multiple myeloma, diabetes mellitus, generalized anxiety disorder, tobacco abuse, history of PE, obesity hypoventilation syndrome, anticoagulated w/ Lovenox admitted w/ SOB, dysphagia, sore throat (improving w/ treatment of thrush) - GI asked to evaluate for BRBPR. She is hemodynamically stable w/ BP 110/76 and HGB 12.4 w/ BUN 42/HAIR CLIPPER POWER 1.29. There is report of constipation prior to episode of rectal bleeding. DDX discussed: lower GI bleeding such as hemorrhoidal, diverticular vs UGI bleeding given her report of epigastric discomfort. 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 Please call with any acute changes, questions or concerns. Please see addendum below with additional recommendation from my supervising physician. I spent a total of 60 minutes on the date of service in review of patient's record, and previously obtained information in person and appropriate medical visit, discussion and education of plan, with patient and/or caregiver, placing orders for tests/referral/procedures as medically necessary and documentation of pertinent clinical information in patient's medical records for their visit today. Supervising Physician Co-Signing Physician Notes I examined the patient and reviewed patient's chart , laboratory data and imaging studies. I agree with with assessment and plan of care as suggested by advanced practice provider. The patient has chronic constipation. Uses enemas and suppositories at home. Noticed rectal bleeding without bowel movements yesterday. The patient is concerned about undergoing sedation for colonoscopy due to advanced COPD. Currently refuses colonoscopy. Differential diagnosis: Stercoral ulcer, hemorrhoids, colonic polyps. Continue to observe. Reevaluate for colonoscopy if bleeding worsens. Lovenox is on hold right now. OK to restart when bleeding stops History of Present Illness Reason for Consultation: BRBPR Requesting Physician: Kaiden Calabrese MD Attending Physician: Kaiden Calabrese MD History of Present Illness 63 year old female w/ history of ovarian CA, recurrent admissions for COPD exacerbation, CHF, T2DM, acute on chronic respiratory failure with hypoxia, gout, multiple myeloma, diabetes mellitus, generalized anxiety disorder, tobacco abuse, history of PE, obesity hypoventilation syndrome, anticoagulated w/ Lovenox admitted w/ SOB, dysphagia, sore throat (improving w/ treatment of thrush) - GI asked to evaluate for BRBPR. Pt was seen and evaluated, chart reviewed. She is OOB sitting in chair. She suggests she has had midline abd pain from her umbilicus radiating up to her epigastric region. Explains this as an "upset stomach." She has had associated nausea w/ this and one episode of emesis last evening. She does not recall what the emesis appeared like but does not believe this was black or bloody. This AM, had urge to move her bowels. Passed a large amount of bloody output. This was maroon colored per patient. No formed stool. Denies any black stools. No fever, chills, CP, SOB. She tells me she has been ordered EGD/Colonoscopy numerous times by her previous GI at [facility]. She has never moved forward with these as her pulmonologists had recommend she avoid all anesthesia. BP 110/76 tachy at 102 HGB 12.4 BUN 42/HAIR CLIPPER POWER 1.29 Denies ETOH Ongoing tobacco AC w/ BID lovenox On both prednisone and colchicine No NSAIDs No recent abdominal imaging No recent stool testing EGD: maybe 5+ years ago at [facility] Colonoscopy s: at [facility] Allergies Allergy/AdvReac Type Severity Reaction Status Date / Time codeine Allergy Severe Anaphylaxis Verified 11/14/23 01:37 Iodinated Contrast Media Allergy Severe Anaphylaxis Verified 11/14/23 01:37 shellfish derived Allergy Severe Anaphylaxis Verified 11/14/23 01:37 tramadol Allergy Intermediate ITCHINESS Verified 11/14/23 01:37 iohexol Allergy Unknown CAN'T Verified 11/14/23 01:37 REMEMBER diphenhydramine AdvReac Severe Anxiety Verified 11/14/23 01:37 [From Benadryl] promethazine AdvReac Intermediate Anxiety Verified 11/14/23 01:37 Home Medications Medication Instructions Recorded Confirmed Type buprenorphine 8 mg-naloxone 2 mg 0.5 film sublingual BID 05/14/22 12/13/23 History sublingual film nystatin 100,000 unit/gram topical 1 applic topical BID PRN UNDER 05/14/22 12/13/23 History powder BREASTS NEEDED. ondansetron HCl 4 mg tablet 4 mg PO Q8H PRN NAUSEA/VOMITING 05/14/22 12/13/23 History quetiapine 200 mg tablet 200 mg PO HS 05/14/22 12/13/23 History levalbuterol HCl 1.25 mg/3 mL 1.25 mg inhalation TID PRN 01/16/23 12/13/23 History solution for nebulization Shortness Of Breath Or Wheezing enoxaparin 150 mg/mL subcutaneous 150 mg subcut UD 05/07/23 12/13/23 History syringe alprazolam 0.5 mg tablet 0.5 mg PO TID #14 tabs 08/02/23 12/13/23 Rx albuterol sulfate 90 mcg/actuation 2 puff inhalation UD PRN Shortness 08/30/23 12/13/23 History aerosol inhaler Of Breath Or Wheezing guaifenesin 600 mg tablet, 600 mg PO Q12 Congestion 09/11/23 12/13/23 History extended release 12 hr (Mucinex) fluticasone propionate 50 1 spray intranasal BID nasal 09/15/23 12/13/23 Rx mcg/actuation nasal congestion #0 mL spray,suspension (Flonase Allergy Relief) fluticasone fur. 200 mcg-umeclid 1 ea inhalation QAM #60 ea 09/16/23 12/13/23 Rx 62.5 mcg-vilant 25 mcg inhalat.powder (Trelegy Ellipta) levalbuterol tartrate 45 2 puff inhalation Q4 PRN WHEEZE 09/16/23 12/13/23 Rx mcg/actuation aerosol inhaler #15 grams bumetanide 2 mg tablet 2 mg PO BID #60 tabs 09/29/23 12/13/23 Rx insulin glargine 100 unit/mL (3 68 unit (0.68 mL) subcut QAM #15 mL 10/17/23 0 12/13/23 Rx mL) subcutaneous pen ipratropium bromide 0.02 % 3 ml continuous nebulization QID 10/17/23 12/13/23 Rx solution for inhalation PRN shortness of breath #75 mL calcium polycarbophil 625 mg 625 mg PO QAM #30 tabs 10/30/23 12/13/23 Rx tablet (Fiber (calcium polycarbophil)) colchicine 0.6 mg tablet (Colcrys) 0.6 mg PO BID PRN gout attacks #60 10/30/23 12/13/23 Rx tabs Ozempic Inj 0.25 mg INJ WK 11/07/23 12/13/23 History insulin aspart U-100 100 unit/mL 0 unit subcut TIDM 11/07/23 12/13/23 History (3 mL) subcutaneous pen (Novolog FlexPen U-100 Insulin aspart) allopurinol 100 mg tablet 300 mg PO QAM 12/13/23 12/13/23 History potassium chloride 20 mEq 40 meq (2 x 20 mEq) PO QAM #60 tabs 12/25/23 Rx tablet,extended release(part/cryst) prednisone 10 mg tablet 10 mg PO DIRECTED #14 tabs 12/25/23 Rx spironolactone 25 mg tablet 25 mg PO QAM #30 tabs 12/25/23 Rx ascorbic acid (vitamin C) 500 mg 1,000 mg (2 x 500 mg) PO DAILY #60 01/02/24 Rx tablet (Vitamin C) tabs citalopram 20 mg tablet 20 mg PO HS #30 tabs 01/02/24 Rx colchicine 0.6 mg capsule 0.6 mg PO DAILY #30 caps 01/02/24 Rx prednisone 5 mg tablet 5 mg PO DIRECTED #45 tabs 01/02/24 Rx Patient History Medical History (Updated 01/28/24 @ 11:28 by MARGARET Wang) History of pulmonary embolism Acute exacerbation of chronic obstructive pulmonary disease Acute heart failure with preserved ejection fraction (HFpEF) Acute exacerbation of chronic obstructive pulmonary disease Tobacco abuse Opiate dependence Asthma Surgical History No pertinent past surgical history Family History Sister Asthma Social History Smoking Status: Current every day smoker Tobacco Type: Cigarettes Cigarettes Per Day: 1 cigarette per day; Second Hand Exposure: No; Do You Dip or Chew Tobacco: No; Hx Alcohol Use: No Hx Substance Use: No Preferred Language: [place] Islander Communication Ability: Effective Camp Boss Required: No Beliefs That Will Affect Care: None Current Living Situation: Alone Current Living Situation Comment: lives with sister temporarily Feels Safe at Home: Yes Assistive Devices: Oxygen - at Night and Other Review of Systems Review of Systems: All other findings negative except as noted in HPI. Physical Exam Constitutional: WD/WN, vitals as above Chronically ill appearing female in no acute distress, sitting OOB in chair, scattered bruising on extremities. Respiratory: normal respiratory effort Auscultation: + diminished lung sounds Cardiovascular: Rate/Rhythm: regular rate and regular rhythm Gastrointestinal (Abdomen): Inspection/Auscultation: normal bowel sounds Percussion/Palpation: + abdomen tender (midline umbilicus up to epigastric) and abdomen soft; no guarding and abdomen not rigid Skin: no rashes, warm and dry Results & Data Vital Signs (Past 12 Hours) Vital Signs Temp Pulse Pulse Resp BP Pulse Ox O2 Del Method 01/28/24 07:50 Room Air 01/28/24 07:37 36.3 C L 102 H 20 110/76 98 Room Air 01/27/24 23:25 20 91 Room Air 01/27/24 23:15 97 H 12 94 O2 Flow Rate 01/28/24 07:50 01/28/24 07:37 01/27/24 23:25 01/27/24 23:15 2 Laboratory Results 01/28/24 01/28/24 01/27/24 Range/Units 09:22 07:40 20:33 WBC 14.36 H (4.8-10.8) K/ul RBC 4.71 (4.20-5.40) M/uL Hgb 12.4 (12.0-16.0) g/dl Hct 40.0 (37.0-47.0) % MCV 84.9 (80.0-100.0) fL MCH 26.3 (25.0-34.0) pg MCHC 31.0 L (32.0-36.0) g/dL RDW Std Deviation 47.8 H (36.4-46.3) fL RDW Coeff of Malick 15.7 H (11.5-14.5) % Plt Count 356 (130-400) K/uL MPV 10.2 (9.4-12.4) fL Sodium (136-145) mmol/L Potassium (3.5-5.1) mmol/L Chloride (98-107) mmol/L Carbon Dioxide (21-32) mmol/L Anion Gap (3-11) BUN (6-23) mg/dl Creatinine (0.6-1.2) mg/dl Est Cr Clr Drug Dosing ml/min eGFR BUN/Creatinine Ratio (10-20) Glucose (70-99(Fasting)) mg/dl POC Glucose 164 H 337 H* (70-99) mg/dl Calcium (8.6-10.3) mg/dl 01/27/24 01/27/24 01/27/24 Range/Units 16:33 11:47 11:36 WBC 13.83 H (4.8-10.8) K/ul RBC 4.77 (4.20-5.40) M/uL Hgb 12.9 (12.0-16.0) g/dl Hct 39.8 (37.0-47.0) % MCV 83.4 (80.0-100.0) fL MCH 27.0 (25.0-34.0) pg MCHC 32.4 (32.0-36.0) g/dL RDW Std Deviation 47.8 H (36.4-46.3) fL RDW Coeff of Malick 15.9 H (11.5-14.5) % Plt Count 378 (130-400) K/uL MPV 10.2 (9.4-12.4) fL Sodium 131 L (136-145) mmol/L Potassium 3.6 (3.5-5.1) mmol/L Chloride 89 L (98-107) mmol/L Carbon Dioxide 30 (21-32) mmol/L Anion Gap 12 H (3-11) BUN 42 H (6-23) mg/dl Creatinine 1.29 H D (0.6-1.2) mg/dl Est Cr Clr Drug Dosing 47.3 ml/min eGFR 46.93 BUN/Creatinine Ratio 32.6 H (10-20) Glucose 194 H (70-99(Fasting)) mg/dl POC Glucose 220 H 216 H (70-99) mg/dl Calcium 9.3 (8.6-10.3) mg/dl PG Care Time/CCT Total # of Minutes Spent Total Time Spent with Patient: Total time spent is greater than 50% in coordination of care (as documented) at patient's floor/unit and/or counseling patient: Coding Level of Care Code 06149 INT INP/OBS CARE 2/55MIN Diagnoses Hematochezia K92.1
--- NOTE | 2024-01-28 15:01 | CT Scan Report ---
CT OF THE ABDOMEN AND PELVIS WITH ORAL CONTRAST CLINICAL HISTORY: Rectal bleeding. COMPARISON STUDY: CT of the abdomen and pelvis June 21, 2022. TECHNIQUE: Axial images of the abdomen and pelvis were obtained without IV contrast. Oral contrast wa s administered. Automated exposure control was utilized for the study. A dose lowering technique was utilized adhering to the principles of ALARA. FINDINGS: An expansile lytic anterior right fourth rib lesion is partially imaged. Visualized portion s of this lesion appear unchanged from earlier exams. No pneumatosis, free air or portal venous gas i s present. No renal, ureteral or bladder calculi are present. Remainder of the abdomen and pelvis is suboptimally assessed on unenhanced exam. Liver, spleen, adrenal glands and pancreas are unremarkable . There is no biliary ductal dilatation status post cholecystectomy. The uterus is surgically absent. Evidence for a pelvic lymph node dissection. Subcutaneous densities within the anterior abdominal wa ll favor injection sites. There is no evidence for a bowel obstruction. No bowel wall thickening is e vident on unenhanced exam. Sensitivity for detection of mucosal lesions is diminished given CT techni que but none are identified. There is no lymphadenopathy. There are no fluid collections. A 3.2 cm ri ght acetabular lucent lesion remains unchanged since CT of June 21, 2022. There are no acute frac tures within the visualized skeletal structures IMPRESSION: 1. No acute process within the abdomen or pelvis. 2. No bowel obstruction. No bowel wall thickening identified on unenhanced exam. 3. No change in an expansile lytic anterior right fourth rib lesion and a lucent right acetabular les ion from prior exams. These remain indeterminate and can be assessed on follow-up exams to ensure sta bility. ACT 112: Negative or not required by law. Electronically signed by: Hipolito Sevilla M.D. 01/28/2024 3:00 PM
--- NOTE | 2024-01-28 17:09 | Hospitalist Progress Note ---
Date of Service January 28, 2024 Assessment & Plan (1) Drowsiness: Plan: metabolic encephalopathy significantly drowsy improved with reduction of medications and reinforcement of noninvasive positive pressure ventilation use even with napping. Suspected the fluconazole was causing increased levels of Xanax and Seroquel as they do interact Decreased Seroquel to 100mg hs x 2 nights and then held completely x 2 nights--> now c/o significant insomnia--resume Seroquel 50mg hs Held Xanax x 1 day, then resumed at lower dose of 0.25mg po tid--> with ongoing drowsiness, will reduce further to 0.25mg po BID Discontinued fluconazole (2) History of pulmonary embolism: Plan: continue Lovenox 90 mg bid, now with rectal bleeding, will check Xa level, since this she has concern for recurrent malignancy with history of both ovarian ca and multiple myeloma s/p stem cell transplant, would not recommend stopping but perhaps dose may need to be reduced, if questions after Xa level, Dr Michel is available for anticoagulation questions (3) Thrush of mouth and esophagus: Plan: Cause of her sore throat and odynophagia-resolved. Continue nystatin swish and swallow x 14 day course Epigastric distress seems to be more like GI related and esophagus. Instituting Protonix twice daily (4) Acute and chronic respiratory failure with hypoxia: Plan: On admission, felt more SOB and using 3LNC and baseline is room air, 2/2 ongoing smoking, COPD, and heart failure preserved ejection fraction Is now weaned off O2 to room air and no further respiratory distress Home prednisone 10mg daily-now will slowly taper off prednisone over the next couple of months-decreased to 5mg daily -should remain there for 1 month no need for antibiotics or IV steroids Counseled on smoking cessation Continue Trilogy AVAPS every night and with now for obesity hypoventilation syndrome ABG 01/19 7.41/57/73 on 3LNC, chronic hypercapnia (5) DM II (diabetes mellitus, type II), controlled: Plan: With ongoing hyperglycemia which is now improving but not yet at goal Continue Lantus 65 units qAM and further tighten Novolog Continue accuchecks last A1C 9.6% in 09/2023 and now down to 8.3% (6) Heart failure with preserved ejection fraction: Plan: Acute on chronic HFpEF, with increased LE edema now slightly improved with IV Bumex She traditionally cannot follow a fluid restriction at home but does try to follow low sodium diet Does have a venous stasis component and sits in chair with legs dangling all day long Patient now with slightly rising BUN and creatinine will hold Bumex in the morning of 01/27 and reassess volume status Patient is hyponatremic at this point we will follow for trend Hypokalemia-replace K and Mag as needed (7) Generalized anxiety disorder: Plan: Her Celexa dose was recently increased to 20mg-having significant drowsiness which may have been due to interaction of Seroquel and Xanax with fluconazole - lowered dose for now to 10mg Resume Seroquel at only 50mg qhs Reduced Xanax to 0.25 Mg p.o. 2 times daily Plan History of multiple myeloma status post stem cell transplant 2014, and ovarian cancer 32 years ago, has some lytic bone lesions in rib and femur, pt is reluctant to have further work up here and wants to return to [facility] History of gout with recent flares continues on allopurinol Admission and Anticipated Discharge Date Admission Date: January 17, 2024 Subjective pt still with persistent BRBPR, is on therapeutic lovenox for history of cancer associated VTE CT abd/pelvis without intra abdominal changes for constipation or mass, does have some lytic bone lesions Physical Exam Physical Exam: awake and alert, less SOB, still with peripheral edema Results & Data Results & Data Vital Signs (Past 12 Hours) Vital Signs Temp Pulse Resp BP BP Pulse Ox O2 Del Method 01/28/24 15:46 98.1 F 98 H 20 118/77 95 Room Air 01/28/24 07:50 Room Air 01/28/24 07:37 97.3 F L 102 H 20 110/76 98 Room Air Laboratory Results review cbc review chemistry PG Care Time/CCT Total # of Minutes Spent Total Time Spent with Patient: Total time spent is greater than 50% in coordination of care (as documented) at patient's floor/unit and/or counseling patient: Coding Level of Care Code 55146 SUB INP/OBS CARE 3/50MIN Diagnoses Drowsiness R40.0 History of pulmonary embolism Z86.711 Thrush of mouth and esophagus B37.81; B37.0 Acute and chronic respiratory failure with hypoxia J96.21 DM II (diabetes mellitus, type II), controlled E11.9 Chronic heart failure with preserved ejection fraction I50.32 Heart failure chronicity: chronic Generalized anxiety disorder F41.1 (6) Heart failure with preserved ejection fraction Heart failure chronicity: chronic Qualified Code(s): I50.32 - Chronic diastolic (congestive) heart failure
[2024-01-28] MEDS: bisacodyL 5 MG TABEC PO ONE (17:38)
[2024-01-28] MEDS: ALPRAZolam 0.25 MG TABLET PO PRN (18:20)
[2024-01-28 19:16] LABS: ANTI-Xa, LMWH(Low Molecular Wt > 1.50 IU/ML (< 0.10)
[2024-01-29 07:53] LABS: BUN Creatinine Ratio 35.1 (10-20); Calcium 9.3 mg/dl (8.6-10.3); Creatinine Clr Calc Pharmacy 46.6 ml/min; Potassium 3.8 mmol/L (3.5-5.1)
--- NOTE | 2024-01-29 12:19 | Hospitalist Progress Note ---
Date of Service January 29, 2024 Assessment & Plan (1) History of pulmonary embolism: (2) Thrush of mouth and esophagus: (3) DM II (diabetes mellitus, type II), controlled: (4) Heart failure with preserved ejection fraction: (5) Generalized anxiety disorder: (6) Tobacco use disorder: (7) Multiple myeloma: (8) Chronic respiratory failure with hypoxia and hypercapnia: (9) COPD (chronic obstructive pulmonary disease): Plan 63-year-old female with past medical history of recurrent admissions for COPD exacerbation and CHF (this is her 15th admission), obesity, type 2 diabetes mellitus, acute on chronic hypoxic and hypercapnic respiratory failure, history of PE on Lovenox, obesity hypoventilation syndrome, history of multiple myeloma in 2015 and also history of ovarian cancer in the remote past presented with complaint of difficulty swallowing and worsening of her chronic shortness of breath. She was initially diagnosed with thrush and was started on IV fluconazole Patient then started getting lethargic and somnolent and was thought this was related to her being on psych meds and IV fluconazole. IV fluconazole was stopped. Mentation improved but then patient started experiencing rectal bleeding on 01/28/2024. GI was consulted and they recommended holding Lovenox. GI recommended colonoscopy but patient declined #Rectal bleeding #History of PE on chronic anticoagulation with Lovenox #History of multiple myeloma in 2015 status post stem cell transplant Patient was seen by GI Patient declined colonoscopy CT abdomen pelvis showed no acute process within the abdomen or pelvis from 01/28/2024 No change in an expansile lytic anterior right fourth rib lesion and a lucent right acetabular lesion from prior exams Lovenox has been held per GI recommendations Monitor H&H Patient has lytic lesion in fourth rib and femur As per previous notes, patient prefers to have her care and [place] area with oncology #Metabolic encephalopathy #Anxiety disorder Mentation has improved and is at her baseline Likely related to fluconazole causing increased levels of Xanax and Seroquel due to interactions She is currently on Seroquel 50 mg p.o. nightly and Xanax 0.25 mg p.o. twice daily Fluconazole has been stopped Continue citalopram 10 mg p.o. nightly #MONICA Bumex has been held Hold spironolactone Avoid nephrotoxic agents Monitor renal function electrolytes #Acute on chronic hypoxic/hypercapnic respiratory failure (combination of COPD plus CHF) #Chronic COPD #Obesity hypoventilation syndrome Continue Anoro Ellipta Continue nebs as needed Prednisone dose has been reduced from 10 mg daily to 5 mg daily Patient uses oxygen at baseline: 3 L continuously to as needed CPAP at bedtime #Acute on chronic diastolic congestive heart failure with preserved ejection fraction Echo from July 2023 shows EF of 60 to 65% Hold Bumex and spironolactone in light of MONICA I/O monitoring Daily weights #Insulin-dependent type 2 diabetes mellitus A1c is 8.3 on 01/19/2024 Patient is on Lantus 65 units in the morning and insulin coverage Pharmacy consult for glycemic control CODE STATUS: Full code: Discussed goals of care and patient is open to meeting with palliative care for further discussions of goals of care DVT prophylaxis: Bilateral SCDs Patient appears deconditioned, PT/OT consults for discharge recommendations Care plan discussed with patient, nursing staff Admission and Anticipated Discharge Date Admission Date: January 17, 2024 Subjective Patient seen and examined She refused Lovenox last night and again this morning. GI recommendations reviewed and they recommend holding Lovenox for now since patient is having rectal bleeding Patient states she had another bleeding episode this morning She does not want colonoscopy as she is afraid of anesthesia at this point Labs reviewed Patient denies any chest pain or shortness of breath Patient tells me that she uses anywhere from 3 L of oxygen continuously to only as needed and is currently saturating well on room air Patient has had 15 hospitalizations this year She is agreeable to meeting with palliative care Physical Exam Physical Exam: General: No acute distress Psych: Awake and alert HEENT: Anicteric sclera, moist oral mucosa CVS: Regular rate and rhythm Lungs: Bilateral air entry, no wheezing noted Abdomen: Soft, nontender, no rebound, no guarding Ext: 1+ pitting edema noted Results & Data Results & Data Vital Signs (Past 12 Hours) Vital Signs Temp Pulse Resp BP Pulse Ox O2 Del Method 01/29/24 07:54 Room Air 01/29/24 07:28 36.4 C L 96 H 18 109/76 95 Room Air Laboratory Results Laboratory Results - last 24 hr 01/28/24 01/28/24 01/28/24 16:46 18:28 20:09 Heparin Anti-Xa, LM Wt > 1.50 Sodium Potassium Chloride Carbon Dioxide Anion Gap BUN Creatinine Est Cr Clr Drug Dosing eGFR BUN/Creatinine Ratio Glucose POC Glucose 173 H 202 H Calcium 01/29/24 01/29/24 01/29/24 07:22 07:36 11:32 Heparin Anti-Xa, LM Wt Sodium 130 L Potassium 3.8 Chloride 88 L Carbon Dioxide 32 Anion Gap 10 BUN 46 H Creatinine 1.31 H Est Cr Clr Drug Dosing 46.6 eGFR 46.07 BUN/Creatinine Ratio 35.1 H Glucose 198 H POC Glucose 217 H 339 H* Calcium 9.3 01/29/24 01/29/24 11:33 11:34 Heparin Anti-Xa, LM Wt Sodium Potassium Chloride Carbon Dioxide Anion Gap BUN Creatinine Est Cr Clr Drug Dosing eGFR BUN/Creatinine Ratio Glucose POC Glucose 361 H* 318 H* Calcium Diagnostic Findings Abdomen/Pelvis CT 01/28/24 10:32 CT OF THE ABDOMEN AND PELVIS WITH ORAL CONTRAST CLINICAL HISTORY: Rectal bleeding. COMPARISON STUDY: CT of the abdomen and pelvis June 21, 2022. TECHNIQUE: Axial images of the abdomen and pelvis were obtained without IV contrast. Oral contrast was administered. Automated exposure control was utilized for the study. A dose lowering technique was utilized adhering to the principles of ALARA. FINDINGS: An expansile lytic anterior right fourth rib lesion is partially imaged. Visualized portions of this lesion appear unchanged from earlier exams. No pneumatosis, free air or portal venous gas is present. No renal, ureteral or bladder calculi are present. Remainder of the abdomen and pelvis is suboptimally assessed on unenhanced exam. Liver, spleen, adrenal glands and pancreas are un remarkable. There is no biliary ductal dilatation status post cholecystectomy. The uterus is surgically absent. Evidence for a pelvic lymph node dissection. Subcutaneous densities within the anterior abdominal wall favor injection sites. There is no evidence for a bowel obstruction. No bowel wall thickening is evident on unenhanced exam. Sensitivity for detection of mucosal lesions is diminished given CT technique but none are identified. There is no lymphadenopathy. There are no fluid collections. A 3.2 cm right acetabular lucent lesion remains unchanged since CT of June 21, 2022. There are no acute fractures within the visualized skeletal structures IMPRESSION: 1. No acute process within the abdomen or pelvis. 2. No bowel obstruction. No bowel wall thickening identified on unenhanced exam. 3. No change in an expansile lytic anterior right fourth rib lesion and a lucent right acetabular lesion from prior exams. These remain indeterminate and can be assessed on follow-up exams to ensure stability. ACT 112: Negative or not required by law. Electronically signed by: Hipolito Sevilla M.D. 01/28/2024 3:00 PM PG Care Time/CCT Total # of Minutes Spent Total Time Spent with Patient: Total time spent is greater than 50% in coordination of care (as documented) at patient's floor/unit and/or counseling patient: Coding Level of Care Code 36461 SUB INP/OBS CARE 3/50MIN Diagnoses History of pulmonary embolism Z86.711 Thrush of mouth and esophagus B37.81; B37.0 DM II (diabetes mellitus, type II), controlled E11.9 Chronic heart failure with preserved ejection fraction I50.32 Heart failure chronicity: chronic Generalized anxiety disorder F41.1 Tobacco use disorder F17.200 Multiple myeloma C90.00 Multiple myeloma remission status: unspecified Chronic respiratory failure with hypoxia and hypercapnia J96.11; J96.12 COPD (chronic obstructive pulmonary disease) J44.9 COPD type: unspecified COPD (4) Heart failure with preserved ejection fraction Heart failure chronicity: chronic Qualified Code(s): I50.32 - Chronic diastolic (congestive) heart failure (7) Multiple myeloma Multiple myeloma remission status: unspecified Qualified Code(s): C90.00 - Multiple myeloma not having achieved remission (9) COPD (chronic obstructive pulmonary disease) COPD type: unspecified COPD Qualified Code(s): J44.9 - Chronic obstructive pulmonary disease, unspecified
--- NOTE | 2024-01-29 16:00 | Palliative Care Consultation ---
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 An expansile lytic anterior right fourth rib lesion is partially imaged. Visualized portions of this lesion appear unchanged from earlier exams. No pneumatosis, free air or portal venous gas is present. No renal, ureteral or bladder calculi are present. Remainder of the abdomen and pelvis is suboptimally assessed on unenhanced exam. Liver, spleen, adrenal glands and pancreas are unremarkable. There is no biliary ductal dilatation status post cholecystectomy. The uterus is surgically absent. Evidence for a pelvic lymph node dissection. Subcutaneous densities within the anterior abdominal wall favor injection sites. There is no evidence for a bowel obstruction. No bowel wall thickening is evident on unenhanced exam. Sensitivity for detection of mucosal lesions is diminished given CT technique but none are identified. There is no lymphadenopathy. There are no fluid collections. A 3.2 cm right acetabular lucent lesion remains unchanged since CT of June 21, 2022. There are no acute fractures within the visualized skeletal structures IMPRESSION: 1. No acute process within the abdomen or pelvis. 2. No bowel obstruction. No bowel wall thickening identified on unenhanced exam. 3. No change in an expansile lytic anterior right fourth rib lesion and a lucent right acetabular lesion from prior exams. These remain indeterminate and can be assessed on follow-up exams to ensure stability. ACT 112: Negative or not required by law. Electronically signed by: Hipolito Sevilla M.D. 01/28/2024 3:00 PM PG Care Time/CCT Total # of Minutes Spent Total Time Spent with Patient: Total time spent is greater than 50% in coordination of care (as documented) at patient's floor/unit and/or counseling patient: I spent 150 minutes overall addressing this case: 15 min in medical data review/discussion with referring provider(s) and/or preparation for the visit 25 min in direct interaction with the patient/exam 70 min in Advance Care Planning/Goals of Care discussions as detailed above in note (must be >16min) 15 min in subsequent review and synthesis of assessment and plan 25 min communicating with other providers regarding the patient's case: nursing, primary, care mgt Advanced Care Planning 78013 Advanced Care Planning 30 Min 37781 Advanced Care Planning Additional 30 [place] [address] IN/OBS CONSULT LVL 5,80M (25 - SIGNIFICANT, SEPARATELY IDENTIFIABLE ) Patient Type New Medical Decision Making High Complexity Diagnoses Dyspnea and respiratory abnormalities R06.00; R06.89 Anxiety about health R45.89 Obesity hypoventilation syndrome E66.2 Advanced care planning/counseling discussion Z71.89 High risk for readmission Z91.89 Social isolation Z60.4 Family dynamics problem Z63.9 Palliative care by specialist Z51.5 Self neglect R46.89 Additional Codes Advanced Care Planning - 38306 Advanced Care Planning 30 Min: 10630 Advanced Care Planning 30 Min ([id number]) Advanced Care Planning - 08432 Advanced Care Planning Additional 30 Min: 68882 Advanced Care Planning Additional 30 Min ([id number])
[2024-01-29] MEDS ORDERED: PHARMACY GLYCEMIC MGMT CONSULT PRN (16:34)
[2024-01-30] MEDS: INSULIN ASPART PER UNIT CHARGE SC SCH (00:16)
--- NOTE | 2024-01-30 13:37 | Hospitalist Progress Note ---
Date of Service January 30, 2024 Assessment & Plan (1) History of pulmonary embolism: (2) Thrush of mouth and esophagus: (3) DM II (diabetes mellitus, type II), controlled: (4) Heart failure with preserved ejection fraction: (5) Generalized anxiety disorder: (6) Tobacco use disorder: (7) Multiple myeloma: (8) Chronic respiratory failure with hypoxia and hypercapnia: (9) COPD (chronic obstructive pulmonary disease): Plan 63-year-old female with past medical history of recurrent admissions for COPD exacerbation and CHF (this is her 15th admission), obesity, type 2 diabetes mellitus, acute on chronic hypoxic and hypercapnic respiratory failure, history of PE on Lovenox, obesity hypoventilation syndrome, history of multiple myeloma in 2015 and also history of ovarian cancer in the remote past presented with complaint of difficulty swallowing and worsening of her chronic shortness of breath. She was initially diagnosed with thrush and was started on IV fluconazole Patient then started getting lethargic and somnolent and was thought this was related to her being on psych meds and IV fluconazole. IV fluconazole was stopped. Mentation improved but then patient started experiencing rectal bleeding on 01/28/2024. GI was consulted and they recommended holding Lovenox. GI recommended colonoscopy but patient declined #Rectal bleeding #History of PE on chronic anticoagulation with Lovenox #History of multiple myeloma in 2015 status post stem cell transplant Patient was seen by GI Patient declined colonoscopy CT abdomen pelvis showed no acute process within the abdomen or pelvis from 01/28/2024 No change in an expansile lytic anterior right fourth rib lesion and a lucent right acetabular lesion from prior exams Lovenox has been held per GI recommendations Monitor H&H Patient has lytic lesion in fourth rib and femur As per previous notes, patient prefers to have her care and [place] area with oncology: Confirmed with patient today #Metabolic encephalopathy #Anxiety disorder Mentation has improved and is at her baseline Likely related to fluconazole causing increased levels of Xanax and Seroquel due to interactions She is currently on Seroquel 50 mg p.o. nightly and Xanax 0.25 mg p.o. twice daily Fluconazole has been stopped Continue citalopram 10 mg p.o. nightly #MONICA #Hyponatremia Bumex has been held Hold spironolactone Avoid nephrotoxic agents Monitor renal function and electrolytes #Acute on chronic hypoxic/hypercapnic respiratory failure (combination of COPD plus CHF) #Chronic COPD #Obesity hypoventilation syndrome Continue Anoro Ellipta Continue nebs as needed Prednisone dose has been reduced from 10 mg daily to 5 mg daily Patient uses oxygen at baseline: 3 L continuously to as needed CPAP at bedtime #Acute on chronic diastolic congestive heart failure with preserved ejection fraction Echo from July 2023 shows EF of 60 to 65% Hold Bumex and spironolactone in light of MONICA I/O monitoring Daily weights #Insulin-dependent type 2 diabetes mellitus A1c is 8.3 on 01/19/2024 Patient is on Lantus 65 units in the morning and insulin coverage Pharmacy managing glycemic control CODE STATUS: Full code: Patient met with palliative care on 01/29/2024 DVT prophylaxis: Bilateral SCDs Patient appears deconditioned, PT/OT consults for discharge recommendations Care plan discussed with patient, nursing staff Admission and Anticipated Discharge Date Admission Date: January 17, 2024 Subjective Patient seen and examined Patient states bloody bowel movements have resolved She just feels very weak and tired today Appetite has been down and does not feel like eating much She appreciated meeting with palliative care and has her card with her She is hoping for case operator can help her find placement close to [place] Patient tells me her oncologist is in [place] Physical Exam Physical Exam: General: No acute distress Psych: Awake and alert HEENT: Anicteric sclera, moist oral mucosa CVS: Regular rate and rhythm Lungs: Bilateral air entry, no wheezing noted Abdomen: Soft, nontender, no rebound, no guarding Ext: 1+ pitting edema noted Results & Data Results & Data Vital Signs (Past 12 Hours) Vital Signs Temp Pulse Pulse Resp BP Pulse Ox O2 Del Method 01/30/24 07:44 36.6 C 98 H 20 100/70 99 Room Air 01/30/24 02:54 94 H 10 L 100 O2 Flow Rate 01/30/24 07:44 01/30/24 02:54 2 Laboratory Results Laboratory Results - last 24 hr 01/29/24 01/29/24 01/29/24 16:34 16:35 16:36 Glucose POC Glucose 312 H* 390 H* 289 H 01/29/24 01/29/24 01/29/24 20:50 20:59 21:09 Glucose POC Glucose 370 H* 414 H* 257 H 01/29/24 01/30/24 01/30/24 21:47 00:06 03:49 Glucose 228 H POC Glucose 191 H 99 01/30/24 01/30/24 07:43 11:27 Glucose POC Glucose 153 H 172 H PG Care Time/CCT Total # of Minutes Spent Total Time Spent with Patient: Total time spent is greater than 50% in coordination of care (as documented) at patient's floor/unit and/or counseling patient: Coding Level of Care Code 89794 SUB INP/OBS CARE 2/35MIN Diagnoses History of pulmonary embolism Z86.711 Thrush of mouth and esophagus B37.81; B37.0 DM II (diabetes mellitus, type II), controlled E11.9 Chronic heart failure with preserved ejection fraction I50.32 Heart failure chronicity: chronic Generalized anxiety disorder F41.1 Tobacco use disorder F17.200 Multiple myeloma C90.00 Multiple myeloma remission status: unspecified Chronic respiratory failure with hypoxia and hypercapnia J96.11; J96.12 COPD (chronic obstructive pulmonary disease) J44.9 COPD type: unspecified COPD (4) Heart failure with preserved ejection fraction Heart failure chronicity: chronic Qualified Code(s): I50.32 - Chronic diastolic (congestive) heart failure (7) Multiple myeloma Multiple myeloma remission status: unspecified Qualified Code(s): C90.00 - Multiple myeloma not having achieved remission (9) COPD (chronic obstructive pulmonary disease) COPD type: unspecified COPD Qualified Code(s): J44.9 - Chronic obstructive pulmonary disease, unspecified
[2024-01-30 14:29] LABS: Basophils # (auto) 0.04 K/uL (0.00-0.20); Basophils % (auto) 0.3 %; Eosinophils # (auto) 0.17 K/uL (0.00-0.50); Eosinophils % (auto) 1.2 %; Hematocrit (blood only) 34.7 % (37.0-47.0); Hemoglobin 11.3 g/dl (12.0-16.0); Immature Granulocytes # (auto) 0.17 K/uL (0.01-0.20); Immature Granulocytes % (auto) 1.2 %; Lymphocytes # (auto) 0.99 K/uL (1.20-3.40); Lymphocytes % (auto) 7.2 %; Mean Corpuscular Hemoglobin 27.1 pg (25.0-34.0); Mean Corpuscular Hgb Conc 32.6 g/dL (32.0-36.0); Mean Corpuscular Volume 83.2 fL (80.0-100.0); Monocytes % (auto) 3.6 %; Neutrophils # (auto) 11.94 K/uL (1.40-6.50); Neutrophils % (auto) 86.5 %; Platelet Count 354 K/uL (130-400); RDW Coefficient of Variation 15.5 % (11.5-14.5); RDW Standard Deviation 46.7 fL (36.4-46.3); Red Blood Count 4.17 M/uL (4.20-5.40); White Blood Count 13.81 K/ul (4.8-10.8)
[2024-01-30 14:46] LABS: BUN Creatinine Ratio 33.9 (10-20); Calcium 8.8 mg/dl (8.6-10.3); Magnesium 1.6 mg/dl (1.7-2.4); Potassium 3.8 mmol/L (3.5-5.1)
--- NOTE | 2024-01-30 15:40 | Pharmacy Report ---
Pharmacy Glycemic Short Note 2 - Date of Service January 30, 2024 - Glycemic Short BSG Results (Last 24 hours): 01/29/24 01/29/24 01/29/24 16:34 16:35 16:36 Glucose POC Glucose 312 H* 390 H* 289 H 01/29/24 01/29/24 01/29/24 20:50 20:59 21:09 Glucose POC Glucose 370 H* 414 H* 257 H 01/29/24 01/30/24 01/30/24 21:47 00:06 03:49 Glucose 228 H POC Glucose 191 H 99 01/30/24 01/30/24 01/30/24 06:39 07:43 11:27 Glucose 216 H POC Glucose 153 H 172 H OUTPATIENT ANTIDIABETIC REGIMEN: * Lantus 68 units SC QAM * Novolog 10 units SC AC * Ozempic 0.25 mg SC weekly ASSESSMENT: * 63 y/o F admitted for esophagitis and rectal bleeding last month. Patient has been frequently admitted here and known to pharmacy glycemic service. * She had been on Basal insulin 65 units last few days which is similar dosing to what she had been on during previous admissions. Will continue the same. * BSGs were elevated above 300 mg/dl yesterday, so pharmacy consulted for glyce sai management. * Novolog carb ratio tightened slightly last night. * Fasting BSG was 153 mg/dl today morning, pre-lunch BSG = 172 mg/dl. Continued same parameters as yesterday. PLAN FOR INPATIENT GLYCEMIC CONTROL: * Hold outpatient anti-diabetic meds. * Basal insulin * Lantus 65 units SQ QAM * Bolus insulin * NovoLog per scale ACHS or Q6hrs while NPO * Goal Range: Low 110 mg/dL - High 150 mg/dL * Correction Factor: 15 mg/dL/unit * Nutritional / Prandial insulin per carb ratio of 1 unit per 5 grams CHO consumed
[2024-01-30] MEDS: MAGNESIUM SULFATE / D5W 1 GM/100 ML BAG IV SCH (17:58)
[2024-01-31] MEDS: INSULIN ASPART PER UNIT CHARGE SC SCH (00:17)
[2024-01-31 07:34] LABS: Basophils # (auto) 0.05 K/uL (0.00-0.20); Basophils % (auto) 0.4 %; Eosinophils # (auto) 0.28 K/uL (0.00-0.50); Hematocrit (blood only) 33.8 % (37.0-47.0); Hemoglobin 10.8 g/dl (12.0-16.0); Immature Granulocytes % (auto) 1.4 %; Lymphocytes # (auto) 1.67 K/uL (1.20-3.40); Lymphocytes % (auto) 11.8 %; Mean Corpuscular Hemoglobin 26.5 pg (25.0-34.0); Mean Platelet Volume 10.8 fL (9.4-12.4); Monocytes # (auto) 1.19 K/uL (0.11-0.59); Monocytes % (auto) 8.4 %; Neutrophils # (auto) 10.72 K/uL (1.40-6.50); Platelet Count 359 K/uL (130-400); RDW Coefficient of Variation 15.5 % (11.5-14.5); RDW Standard Deviation 46.8 fL (36.4-46.3); Red Blood Count 4.07 M/uL (4.20-5.40); White Blood Count 14.11 K/ul (4.8-10.8)
[2024-01-31 07:52] LABS: Calcium 8.8 mg/dl (8.6-10.3); Creatinine Clr Calc Pharmacy 63.7 ml/min; Magnesium 2.1 mg/dl (1.7-2.4); Potassium 3.5 mmol/L (3.5-5.1)
[2024-01-31] MEDS: LANTUS PER UNIT CHARGE SC SCH (09:28)
[2024-01-31] MEDS: POTASSIUM CHLORIDE CRTAB 20 MEQ TABCR PO STA (10:22)
--- NOTE | 2024-01-31 13:42 | Hospitalist Progress Note ---
Date of Service January 31, 2024 Assessment & Plan (1) History of pulmonary embolism: (2) Thrush of mouth and esophagus: (3) DM II (diabetes mellitus, type II), controlled: (4) Heart failure with preserved ejection fraction: (5) Generalized anxiety disorder: (6) Tobacco use disorder: (7) Multiple myeloma: (8) Chronic respiratory failure with hypoxia and hypercapnia: (9) COPD (chronic obstructive pulmonary disease): Plan 63-year-old female with past medical history of recurrent admissions for COPD exacerbation and CHF (this is her 15th admission), obesity, type 2 diabetes mellitus, acute on chronic hypoxic and hypercapnic respiratory failure, history of PE on Lovenox, obesity hypoventilation syndrome, history of multiple myeloma in 2015 and also history of ovarian cancer in the remote past presented with complaint of difficulty swallowing and worsening of her chronic shortness of breath. She was initially diagnosed with thrush and was started on IV fluconazole Patient then started getting lethargic and somnolent and was thought this was related to her being on psych meds and IV fluconazole. IV fluconazole was stopped. Mentation improved but then patient started experiencing rectal bleeding on 01/28/2024. GI was consulted and they recommended holding Lovenox. GI recommended colonoscopy but patient declined #Rectal bleeding #History of PE on chronic anticoagulation with Lovenox #History of multiple myeloma in 2015 status post stem cell transplant Patient was seen by GI Patient declined colonoscopy CT abdomen pelvis showed no acute process within the abdomen or pelvis from 01/28/2024 No change in an expansile lytic anterior right fourth rib lesion and a lucent right acetabular lesion from prior exams Lovenox has been held per GI recommendations Monitor H&H Patient has lytic lesion in fourth rib and femur As per previous notes, patient prefers to have her care and [place] area with oncology I spoke with patient about seeing oncologist: She only wants to see her own oncologist Dr. Najera in [place] If H&H remained stable and no further bleeding tomorrow then we will consider resuming Lovenox at a lower dose with Anti-Xa monitoring (last level was greater than 1.5 on 01/28/2024) #Metabolic encephalopathy #Anxiety disorder Mentation has improved and is at her baseline Likely related to fluconazole causing increased levels of Xanax and Seroquel due to interactions She is currently on Seroquel 50 mg p.o. nightly and Xanax 0.25 mg p.o. twice daily Fluconazole has been stopped Continue citalopram 10 mg p.o. nightly #MONICA #Hyponatremia Renal function has improved and sodium levels are improving Resume Bumex at lower dose of 1 mg daily Avoid nephrotoxic agents Monitor renal function and electrolytes #Acute on chronic hypoxic/hypercapnic respiratory failure (combination of COPD plus CHF) #Chronic COPD #Obesity hypoventilation syndrome Continue Anoro Ellipta Continue nebs as needed Prednisone dose has been reduced from 10 mg daily to 5 mg daily Patient uses oxygen at baseline: 3 L continuously to as needed CPAP at bedtime #Acute on chronic diastolic congestive heart failure with preserved ejection fraction Echo from July 2023 shows EF of 60 to 65% Resume Bumex at lower dose of 1 mg daily I/O monitoring Daily weights #Insulin-dependent type 2 diabetes mellitus A1c is 8.3 on 01/19/2024 Patient is on Lantus 65 units in the morning and insulin coverage Pharmacy managing glycemic control CODE STATUS: Full code: Patient met with palliative care on 01/29/2024 DVT prophylaxis: Bilateral SCDs Awaiting PT/OT consults and recommendations Long discussion with patient about all her medical problems. I went over each and every single medical problem and plan with the patient in great detail and answered all her questions. Patient is aware of all her medical issues at this point. Her wish is eventually to move to [place] but in the meantime she would like to be discharged eventually to her sisters home. She feels she is not ready to be discharged chest as yet. Care plan discussed with patient, nursing staff Admission and Anticipated Discharge Date Admission Date: January 17, 2024 Subjective Patient seen and examined Labs reviewed Denies any rectal bleeding at this point Patient states her breathing is at her baseline and does not report any chest pain or shortness of breath She is ambulating to the bathroom without needing oxygen She is not ready to go back to her sister's house but would eventually like to get back to her She also only wants to see her own oncologist in [place] Physical Exam Physical Exam: General: No acute distress Psych: Awake and alert HEENT: Anicteric sclera, moist oral mucosa CVS: Regular rate and rhythm Lungs: Bilateral air entry with decreased breath sounds at the bases, no wheezing noted Abdomen: Soft, nontender, no rebound, no guarding Ext: 1+ pitting edema noted Results & Data Results & Data Vital Signs (Past 12 Hours) Vital Signs Temp Pulse Resp BP Pulse Ox O2 Del Method 01/31/24 08:00 Room Air 01/31/24 07:05 36.4 C L 94 H 20 126/81 96 Room Air Laboratory Results Laboratory Results - last 24 hr 01/30/24 01/30/24 01/30/24 06:39 16:40 16:41 WBC 13.81 H RBC 4.17 L Hgb 11.3 L Hct 34.7 L MCV 83.2 MCH 27.1 MCHC 32.6 RDW Std Deviation 46.7 H RDW Coeff of Malick 15.5 H Plt Count 354 MPV 11.0 Immature Gran % (Auto) 1.2 Neut % (Auto) 86.5 Lymph % (Auto) 7.2 [place] % (Auto) 3.6 Eos % (Auto) 1.2 Baso % (Auto) 0.3 Neut # (Auto) 11.94 H Lymph # (Auto) 0.99 L [place] # (Auto) 0.50 Eos # (Auto) 0.17 Baso # (Auto) 0.04 Immature Gran # (Auto) 0.17 Sodium 127 L Potassium 3.8 Chloride 88 L Carbon Dioxide 29 Anion Gap 10 BUN 38 H Creatinine 1.12 Est Cr Clr Drug Dosing 55.0 eGFR 55.60 BUN/Creatinine Ratio 33.9 H Glucose 216 H POC Glucose 306 H* 302 H* Calcium 8.8 Magnesium 1.6 L 01/30/24 01/31/24 01/31/24 20:45 00:13 06:56 WBC 14.11 H RBC 4.07 L Hgb 10.8 L Hct 33.8 L MCV 83.0 MCH 26.5 MCHC 32.0 RDW Std Deviation 46.8 H RDW Coeff of Malick 15.5 H Plt Count 359 MPV 10.8 Immature Gran % (Auto) 1.4 Neut % (Auto) 76.0 Lymph % (Auto) 11.8 [place] % (Auto) 8.4 Eos % (Auto) 2.0 Baso % (Auto) 0.4 Neut # (Auto) 10.72 H Lymph # (Auto) 1.67 [place] # (Auto) 1.19 H Eos # (Auto) 0.28 Baso # (Auto) 0.05 Immature Gran # (Auto) 0.20 Sodium 130 L Potassium 3.5 Chloride 88 L Carbon Dioxide 33 H Anion Gap 9 BUN 33 H Creatinine 0.97 Est Cr Clr Drug Dosing 63.7 eGFR 66.07 BUN/Creatinine Ratio 34.0 H Glucose 128 H POC Glucose 251 H 147 H Calcium 8.8 Magnesium 2.1 01/31/24 01/31/24 07:42 11:57 WBC RBC Hgb Hct MCV MCH MCHC RDW Std Deviation RDW Coeff of [place] Plt Count MPV Immature Gran % (Auto) Neut % (Auto) Lymph % (Auto) [place] % (Auto) Eos % (Auto) Baso % (Auto) Neut # (Auto) Lymph # (Auto) [place] # (Auto) Eos # (Auto) Baso # (Auto) Immature Gran # (Auto) Sodium Potassium Chloride Carbon Dioxide Anion Gap BUN Creatinine Est Cr Clr Drug Dosing eGFR BUN/Creatinine Ratio Glucose POC Glucose 147 H 157 H Calcium Magnesium PG Care Time/CCT Total # of Minutes Spent Total Time Spent with Patient: Total time spent is greater than 50% in coordination of care (as documented) at patient's floor/unit and/or counseling patient: Coding Level of Care Code 41861 SUB INP/OBS CARE 3/50MIN Diagnoses History of pulmonary embolism Z86.711 Thrush of mouth and esophagus B37.81; B37.0 DM II (diabetes mellitus, type II), controlled E11.9 Chronic heart failure with preserved ejection fraction I50.32 Heart failure chronicity: chronic Generalized anxiety disorder F41.1 Tobacco use disorder F17.200 Multiple myeloma C90.00 Multiple myeloma remission status: unspecified Chronic respiratory failure with hypoxia and hypercapnia J96.11; J96.12 COPD (chronic obstructive pulmonary disease) J44.9 COPD type: unspecified COPD (4) Heart failure with preserved ejection fraction Heart failure chronicity: chronic Qualified Code(s): I50.32 - Chronic diastolic (congestive) heart failure (7) Multiple myeloma Multiple myeloma remission status: unspecified Qualified Code(s): C90.00 - Multiple myeloma not having achieved remission (9) COPD (chronic obstructive pulmonary disease) COPD type: unspecified COPD Qualified Code(s): J44.9 - Chronic obstructive p ulmonary disease, unspecified
[2024-01-31] MEDS: BUMETANIDE 1 MG TAB PO ONE (14:00)
[2024-02-01 09:09] LABS: Calcium 8.8 mg/dl (8.6-10.3); Magnesium 1.8 mg/dl (1.7-2.4); Potassium 4.1 mmol/L (3.5-5.1)
[2024-02-01 09:15] LABS: BUN Creatinine Ratio 29.2 (10-20); Creatinine Clr Calc Pharmacy 64.7 ml/min
[2024-02-01 09:55] LABS: Hematocrit (blood only) 35.1 % (37.0-47.0); Hemoglobin 11.1 g/dl (12.0-16.0); Mean Corpuscular Hemoglobin 26.6 pg (25.0-34.0); Mean Corpuscular Hgb Conc 31.6 g/dL (32.0-36.0); Mean Platelet Volume 10.1 fL (9.4-12.4); Platelet Count 352 K/uL (130-400); RDW Coefficient of Variation 15.8 % (11.5-14.5); RDW Standard Deviation 47.5 fL (36.4-46.3); Red Blood Count 4.18 M/uL (4.20-5.40); White Blood Count 11.46 K/ul (4.8-10.8)
[2024-02-01 09:57] LABS: ANTI-Xa, UFH(UnfractionatedHep < 0.10 IU/ml (0.3-0.7)
--- NOTE | 2024-02-01 12:00 | Hospitalist Progress Note ---
Date of Service February 01, 2024 Assessment & Plan (1) History of pulmonary embolism: (2) Thrush of mouth and esophagus: (3) DM II (diabetes mellitus, type II), controlled: (4) Heart failure with preserved ejection fraction: (5) Generalized anxiety disorder: (6) Tobacco use disorder: (7) Multiple myeloma: (8) Chronic respiratory failure with hypoxia and hypercapnia: (9) COPD (chronic obstructive pulmonary disease): Plan 63-year-old female with past medical history of recurrent admissions for COPD exacerbation and CHF (this is her 15th admission), obesity, type 2 diabetes mellitus, acute on chronic hypoxic and hypercapnic respiratory failure, history of PE on Lovenox, obesity hypoventilation syndrome, history of multiple myeloma in 2015 and also history of ovarian cancer in the remote past presented with complaint of difficulty swallowing and worsening of her chronic shortness of breath. She was initially diagnosed with thrush and was started on IV fluconazole Patient then started getting lethargic and somnolent and was thought this was related to her being on psych meds and IV fluconazole. IV fluconazole was stopped. Mentation improved but then patient started experiencing rectal bleeding on 01/28/2024. GI was consulted and they recommended holding Lovenox. GI recommended colonoscopy but patient declined #Rectal bleeding #History of PE on chronic anticoagulation with Lovenox #History of multiple myeloma in 2015 status post stem cell transplant Patient was seen by GI Patient declined colonoscopy CT abdomen pelvis showed no acute process within the abdomen or pelvis from 01/28/2024 No change in an expansile lytic anterior right fourth rib lesion and a lucent right acetabular lesion from prior exams Lovenox has been held per GI recommendations Monitor H&H Patient has lytic lesion in fourth rib and femur As per previous notes, patient prefers to have her care and [place] area with oncology I spoke with patient about seeing oncologist: She only wants to see her own oncologist Dr. Najera in [place] H&H is stable but patient now reporting dark stool this morning I reached out to GI again and they will see the patient regarding EGD/colonoscopy #Metabolic encephalopathy #Anxiety disorder Mentation has improved and is at her baseline Likely related to fluconazole causing increased levels of Xanax and Seroquel due to interactions She is currently on Seroquel 50 mg p.o. nightly and Xanax 0.25 mg p.o. twice daily Fluconazole has been stopped Continue citalopram 10 mg p.o. nightly #MONICA #Hyponatremia Renal function has improved Patient was restarted on diuretics, monitor sodium level Avoid nephrotoxic agents Monitor renal function and electrolytes #Acute on chronic hypoxic/hypercapnic respiratory failure (combination of COPD plus CHF) #Chronic COPD #Obesity hypoventilation syndrome Continue Anoro Ellipta Continue nebs as needed Prednisone dose has been reduced from 10 mg daily to 5 mg daily Patient uses oxygen at baseline: 3 L continuously to as needed CPAP at bedtime #Acute on chronic diastolic congestive heart failure with preserved ejection fraction Echo from July 2023 shows EF of 60 to 65% Increase Bumex to 2 mg daily and resume spironolactone at lower dose of 12.5 mg daily I/O monitoring Daily weights #Insulin-dependent type 2 diabetes mellitus A1c is 8.3 on 01/19/2024 Patient is on Lantus 65 units in the morning and insulin coverage Pharmacy managing glycemic control CODE STATUS: Full code: Patient met with palliative care on 01/29/2024 DVT prophylaxis: Bilateral SCDs Await GI follow-up PT/OT recommended home with home health services Care plan discussed with patient, nursing staff Admission and Anticipated Discharge Date Admission Date: January 17, 2024 Subjective Patient seen and examined Patient states she noticed dark stools this morning, no bloody bowel movement She is agreeable to EGD/colonoscopy and wants to speak to GI team again regarding the procedures as she is concerned about anesthesia She denies any chest pain or shortness of breath Complaining of leg edema She was restarted on Bumex 1 mg yesterday Labs reviewed Physical Exam Physical Exam: General: No acute distress Psych: Awake and alert HEENT: Anicteric sclera, moist oral mucosa CVS: Regular rate and rhythm Lungs: Bilateral air entry with decreased breath sounds at the bases, no wheezing noted Abdomen: Soft, nontender, no rebound, no guarding Ext: 1+ pitting edema noted Results & Data Results & Data Vital Signs (Past 12 Hours) Vital Signs Temp Pulse Pulse Resp BP Pulse Ox O2 Del Method 02/01/24 07:01 36.4 C L 95 H 18 117/78 93 Room Air 02/01/24 00:20 105 H 10 L 97 O2 Flow Rate 02/01/24 07:01 02/01/24 00:20 2 Laboratory Results Laboratory Results - last 24 hr 01/31/24 01/31/24 01/31/24 11:57 16:38 21:17 WBC RBC Hgb Hct MCV MCH MCHC RDW Std Deviation RDW Coeff of Malick Plt Count MPV Absolute Nucleated RBC Nucleated RBC % (auto) Platelet Estimate Heparin Anti-Xa, Unfract Sodium Potassium Chloride Carbon Dioxide Anion Gap BUN Creatinine Est Cr Clr Drug Dosing eGFR BUN/Creatinine Ratio Glucose POC Glucose 157 H 145 H 133 H Calcium Magnesium 02/01/24 02/01/24 02/01/24 07:48 08:32 09:39 WBC Cancelled 11.46 H RBC Cancelled 4.18 L Hgb Cancelled 11.1 L Hct Cancelled 35.1 L MCV Cancelled 84.0 MCH Cancelled 26.6 MCHC Cancelled 31.6 L RDW Std Deviation Cancelled 47.5 H RDW Coeff of Malick Cancelled 15.8 H Plt Count Cancelled 352 MPV Cancelled 10.1 Absolute Nucleated RBC Cancelled Nucleated RBC % (auto) Cancelled Platelet Estimate Cancelled Heparin Anti-Xa, Unfract < 0.10 L Sodium 127 L Potassium 4.1 Chloride 89 L Carbon Dioxide 29 Anion Gap 9 BUN 28 H Creatinine 0.96 Est Cr Clr Drug Dosing 64.7 eGFR 66.90 BUN/Creatinine Ratio 29.2 H Glucose 198 H POC Glucose 164 H Calcium 8.8 Magnesium 1.8 02/01/24 11:33 WBC RBC Hgb Hct MCV MCH MCHC RDW Std Deviation RDW Coeff of Malick Plt Count MPV Absolute Nucleated RBC Nucleated RBC % (auto) Platelet Estimate Heparin Anti-Xa, Unfract Sodium Potassium Chloride Carbon Dioxide Anion Gap BUN Creatinine Est Cr Clr Drug Dosing eGFR BUN/Creatinine Ratio Glucose POC Glucose 218 H Calcium Magnesium PG Care Time/CCT Total # of Minutes Spent Total Time Spent with Patient: Total time spent is greater than 50% in coordination of care (as documented) at patient's floor/unit and/or counseling patient: Coding Level of Care Code 22022 SUB INP/OBS CARE 2/35MIN Diagnoses History of pulmonary embolism Z86.711 Thrush of mouth and esophagus B37.81; B37.0 DM II (diabetes mellitus, type II), controlled E11.9 Chronic heart failure with preserved ejection fraction I50.32 Heart failure chronicity: chronic Generalized anxiety disorder F41.1 Tobacco use disorder F17.200 Multiple myeloma C90.00 Multiple myeloma remission status: unspecified Chronic respiratory failure with hypoxia and hypercapnia J96.11; J96.12 COPD (chronic obstructive pulmonary disease) J44.9 COPD type: unspecified COPD (4) Heart failure with preserved ejection fraction Heart failure chronicity: chronic Qualified Code(s): I50.32 - Chronic diastolic (congestive) heart failure (7) Multiple myeloma Multiple myeloma remission status: unspecified Qualified Code(s): C90.00 - Multiple myeloma not having achieved remission (9) COPD (chronic obstructive pulmonary disease) COPD type: unspecified COPD Qualified Code(s): J44.9 - Chronic obstructive pulmonary disease, unspecified
--- NOTE | 2024-02-01 12:17 | Gastroenterology Progress Note ---
<Statement entered by Chepe El MD - 02/01/24 16:31> Patient seen and examined. Case discussed with Stanley ROBLES. Patient considered moderate risk per pulmonary and may need bipap support. Discussed with patient. Discussed EGD and colonoscopy procedures, risks/benefits. Among the risks discussed included cardiorespiratory suppression, aspiration, bleeding, failure to diagnose cancer or other pathology and perforation requiring surgery. The patient claimed to understand all that was discussed and all of her questions were answered. At the present time she wants to think about it and not consent to endoscopy. I told her we would check with her again tomorrow. Date of Service February 01, 2024 Assessment & Plan (1) Dark stools: Plan 63 year old female w/ history of ovarian CA, recurrent admissions for COPD exacerbation, CHF, T2DM, acute on chronic respiratory failure with hypoxia, gout, multiple myeloma, diabetes mellitus, generalized anxiety disorder, tobacco abuse, history of PE, obesity hypoventilation syndrome, anticoagulated w/ Lovenox admitted w/ SOB, dysphagia, sore throat (improving w/ treatment of thrush) - GI asked to evaluate for BRBPR. She is hemodynamically stable w/ BP 110/76 and HGB 12.4 w/ BUN 42/[employer] 1.29. There is report of constipation prior to episode of rectal bleeding. DDX discussed: lower GI bleeding such as hemorrhoidal, diverticular vs UGI bleeding given her report of epigastric discomfort. CT without acute findings, EGD/Colon offered 01/27 but refused examination. GI was asked to re-evaluate on 01/31 related to dark stools/black stools. I rediscussed the role for endoscopic evaluation to further investigate the hematochezia and black stools. She remains fearful of proceeding with endoscopic evaluation and is not sure how she would like to proceed. 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 these studies - Recommend obtaining pulmonary consultation to discuss anesthesia risk/clearance before proceeding with endoscopic evaluation - Offered to change her diet to clear liquids for 02/01 in the event she would consider egd/colonoscopy she would be candidate for prepping 02/01 I spent a total of 40 minutes on the date of service in review of patient's record, and previously obtained information in person and appropriate medical visit, discussion and education of plan, with patient and/or caregiver, placing orders for tests/referral/procedures as medically necessary and documentation of pertinent clinical information in patient's medical records for their visit today.Thank you for allowing us to participate in the care of this patient. Please call with any acute changes, questions or concerns. Please see addendum below with additional recommendation from my supervising physician. Admission and Anticipated Discharge Date Admission Date: January 17, 2024 Subjective GI was asked to re-evaluate. Pt was seen and evaluated, chart reviewed. Notes that she had 2/3 days of blood stools and now notes yesterday that her stools appeared darker, black. Recall about 2 episodes of black stools. Is tolerating a regular diet but does note a lot of reflux, regurgitation. She occasionally reports sensation of food sticking when she swallows. No fever, chills, CP, SOB. She is interested in EGD/Colon but is very fearful of her underlying respiratory conditions and anesthesia. Review of Systems Review of Systems: All other findings negative except as noted in HPI. Physical Exam Constitutional: WD/WN, vitals as above Sitting out of bed in chair, eating a regular diet lunch tray w/ fruit and burger. Respiratory: normal respiratory effort Cardiovascular: Rate/Rhythm: regular rate Skin: no rashes, warm and dry Results & Data Results & Data Vital Signs (Past 12 Hours) Vital Signs Temp Pulse Pulse Resp BP Pulse Ox O2 Del Method 02/01/24 07:01 36.4 C L 95 H 18 117/78 93 Room Air 02/01/24 00:20 105 H 10 L 97 O2 Flow Rate 02/01/24 07:01 02/01/24 00:20 2 Laboratory Results 02/01/24 02/01/24 02/01/24 Range/Units 11:33 09:39 08:32 WBC 11.46 H Cancelled RBC 4.18 L Cancelled Hgb 11.1 L Cancelled Hct 35.1 L Cancelled MCV 84.0 Cancelled MCH 26.6 Cancelled MCHC 31.6 L Cancelled RDW Std Deviation 47.5 H Cancelled RDW Coeff of Malick 15.8 H Cancelled Plt Count 352 Cancelled MPV 10.1 Cancelled Absolute Nucleated RBC Cancelled Nucleated RBC % (auto) Cancelled Platelet Estimate Cancelled Heparin Anti-Xa, Unfract < 0.10 L (0.3-0.7) IU/ml Sodium 127 L (136-145) mmol/L Potassium 4.1 (3.5-5.1) mmol/L Chloride 89 L (98-107) mmol/L Carbon Dioxide 29 (21-32) mmol/L Anion Gap 9 (3-11) BUN 28 H (6-23) mg/dl Creatinine 0.96 (0.6-1.2) mg/dl Est Cr Clr Drug Dosing 64.7 ml/min eGFR 66.90 BUN/Creatinine Ratio 29.2 H (10-20) Glucose 198 H (70-99(Fasting)) mg/dl POC Glucose 218 H (70-99) mg/dl Calcium 8.8 (8.6-10.3) mg/dl Magnesium 1.8 (1.7-2.4) mg/dl 02/01/24 01/31/24 01/31/24 Range/Units 07:48 21:17 16:38 WBC RBC Hgb Hct MCV MCH MCHC RDW Std Deviation RDW Coeff of Malick Plt Count MPV Absolute Nucleated RBC Nucleated RBC % (auto) Platelet Estimate Heparin Anti-Xa, Unfract (0.3-0.7) IU/ml Sodium (136-145) mmol/L Potassium (3.5-5.1) mmol/L Chloride (98-107) mmol/L Carbon Dioxide (21-32) mmol/L Anion Gap (3-11) BUN (6-23) mg/dl Creatinine (0.6-1.2) mg/dl Est Cr Clr Drug Dosing ml/min eGFR BUN/Creatinine Ratio (10-20) Glucose (70-99(Fasting)) mg/dl POC Glucose 164 H 133 H 145 H (70-99) mg/dl Calcium (8.6-10.3) mg/dl Magnesium (1.7-2.4) mg/dl PG Care Time/CCT Total # of Minutes Spent Total Time Spent with Patient: Total time spent is greater than 50% in coordination of care (as documented) at patient's floor/unit and/or counseling patient: Coding Level of Care Code 08382 SUB INP/OBS CARE 2/35MIN Diagnoses Dark stools R19.5
[2024-02-01] MEDS: SPIRONOLACTONE 12.5 MG TAB PO ONE (13:20)
[2024-02-01] MEDS: BUMETANIDE 1 MG TAB PO ONE (14:07)
--- NOTE | 2024-02-01 15:06 | Pulmonary Consultation ---
Date of Consultation February 01, 2024 Assessment & Plan (1) COPD (chronic obstructive pulmonary disease): 63-year-old female with a prior diagnosis of COPD currently managed on a neuro and as needed rescue inhaler. She reports that her breathing has been well- controlled since being in the hospital. She feels as though she has triggers in the outpatient setting which make her breathing worse. She offers no complaints of shortness of breath, wheezing, or decline in her symptoms since being here. On review of the patient's prior records, we only have limited pulmonary function testing that had been obtained while inpatient. She has no full available. Her handheld spirometry that was performed while in the hospital has not demonstrated any significant obstructive physiology. Concerning for restrictive physiology may be more on the table, however total lung capacity cannot be assessed at this time. Regardless, her symptoms are extremely mild managed on Anoro alone at this point. Would continue with current treatment plan. COPD type: unspecified COPD Qualified Code(s): J44.9 - Chronic obstructive pulmonary disease, unspecified (2) Chronic respiratory failure with hypoxia and hypercapnia: Likely driven by the patient's morbid obesity and likely obstructive sleep apnea. She is currently utilizing AVAPS and doing so well at this time. Would continue to utilize AVAPS with any naps and nocturnally with sleep. (3) Tobacco use disorder: Continue encourage complete smoking cessation. Plan Patient represents a moderate presurgical risk given her obesity, hypoxemia, and hypercarbic respiratory failure. Patient should be considered for possible need for BiPAP therapy intra procedurally and consideration for BiPAP and/or the patient's AVAPS postoperatively while anesthetic is wearing off. Supervising Physician Co-Signing Physician Notes I saw and evaluated the patient with David Howell PA-C, and agree with findings and plan as documented in the note. 2D echo 07/28/2023: EF 60-65%, RV hypertrophy mild, normal systolic function Spirometry 03/06/2023: Nonspecific spirometry with no obstructive lung dysfunction FEV1 1.14 L 51%, FVC 1.57 L 54%, FEV1/FVC 94% 63-year-old female presented to the hospital for black tarry stools Past medical history: ELEUTERIO, HFpEF, anxiety, depression, multiple myeloma, active smoker Pulmonary consulted for risk stratification for EGD and colonoscopy Family history of lung cancer in maternal side Still smoking approximately 4-5 cigarettes on a daily basis At the time of examination patient was not in respiratory distress She was saturating well on room air Respiratory rate where in the mid teens. No coughing Is compliant with her AVAPS machine at home. Using BiPAP while in the hospital No headache, no nausea, no vomiting Constitutional: No acute distress HEENT: EOMI, PERRLA Respiratory system: Decreased air entry bilaterally, no wheeze, no rhonchi, mild crackles bilaterally CVS: S1-S2 positive, no murmurs or gallops Abdomen: Soft, nontender, nondistended, positive bowel sounds x4, obese Extremities: +2 pulses bilaterally radialis/ dorsalis pedis, no cyanosis, Minimal pitting edema bilateral lower extremity Neuro: Awake alert oriented x3 Psych: Normal mood and affect G/U: No [place] Plan: Patient seems to have restrictive lung disease with ELEUTERIO/OHS and chronic hypercapnic respiratory failure There is no absolute contraindication from pulmonary perspective for patient to undergo EGD/colonoscopy She will follow into at least moderate risk given the chronic hypercapnic respiratory failure She already has AVAPS machine. Would recommend BiPAP 12/8 with backup rate of 16 in the PACU Please call directly with any questions Please note the above document was generated using voice recognition software. It may contain grammatical, syntax or spelling errors.Any formal questions or concerns about the content, text or information contained within the body of this dictation should be directly addressed to the provider for clarification. History of Present Illness Reason for Consultation: Evaluation for anesthesia. Requesting Physician: Dr. Brothers Attending Physician: Favian Brothers MD History of Present Illness Patient is a 63-year-old female with a prior history of opiate dependence, multiple myeloma, history of PE on Lovenox, prior diagnosis of COPD, prior diagnosis of obstructive sleep apnea, diastolic heart failure, anxiety, depression, and recent findings of bloody stools followed by black and tarry stools. The patient was evaluated by GI and was felt best to undergo endoscopy. The patient is concerned to undergo anesthesia secondary to prior comments by pulmonary medicine. Pulmonary medicine consulted to weigh in on subject. Patient was seen and evaluated at bedside. She reports that her breathing has been doing very well since she has been hospitalized. She is saturating fine on room air. She uses 3 L nasal cannula with exertion and when she feels that she needs it. She has been using AVAPS at night and states that is made a difference. She uses Anoro and as needed rescue inhaler. She has undergone anesthesia and surgical interventions in the past without issue. She reports that she is concerned for the possibility of anaphylaxis and/or related to anesthesia. While she has not experienced any of the symptoms in the past, she states that it is a concern, especially "with what happened to Elisa Chaudhary." Allergies Allergy/AdvReac Type Severity Reaction Status Date / Time codeine Allergy Severe Anaphylaxis Verified 11/14/23 01:37 Iodinated Contrast Media Allergy Severe Anaphylaxis Verified 11/14/23 01:37 shellfish derived Allergy Severe Anaphylaxis Verified 11/14/23 01:37 tramadol Allergy Intermediate ITCHINESS Verified 11/14/23 01:37 iohexol Allergy Unknown CAN'T Verified 11/14/23 01:37 REMEMBER diphenhydramine AdvReac Severe Anxiety Verified 11/14/23 01:37 [From Benadryl] promethazine AdvReac Intermediate Anxiety Verified 11/14/23 01:37 Home Medications Medication Instructions Recorded Confirmed Type buprenorphine 8 mg-naloxone 2 mg 0.5 film sublingual BID 05/14/22 12/13/23 History sublingual film nystatin 100,000 unit/gram topical 1 applic topical BID PRN UNDER 05/14/22 12/13/23 History powder BREASTS NEEDED. ondansetron HCl 4 mg tablet 4 mg PO Q8H PRN NAUSEA/VOMITING 05/14/22 12/13/23 History quetiapine 200 mg tablet 200 mg PO HS 05/14/22 12/13/23 History levalbuterol HCl 1.25 mg/3 mL 1.25 mg inhalation TID PRN 01/16/23 12/13/23 History solution for nebulization Shortness Of Breath Or Wheezing enoxaparin 150 mg/mL subcutaneous 150 mg subcut UD 05/07/23 12/13/23 History syringe alprazolam 0.5 mg tablet 0.5 mg PO TID #14 tabs 08/02/23 12/13/23 Rx albuterol sulfate 90 mcg/actuation 2 puff inhalation UD PRN Shortness 08/30/23 12/13/23 History aerosol inhaler Of Breath Or Wheezing guaifenesin 600 mg tablet, 600 mg PO Q12 Congestion 09/11/23 12/13/23 History extended release 12 hr (Mucinex) fluticasone propionate 50 1 spray intranasal BID nasal 09/15/23 12/13/23 Rx mcg/actuation nasal congestion #0 mL spray,suspension (Flonase Allergy Relief) fluticasone fur. 200 mcg-umeclid 1 ea inhalation QAM #60 ea 09/16/23 12/13/23 Rx 62.5 mcg-vilant 25 mcg inhalat.powder (Trelegy Ellipta) levalbuterol tartrate 45 2 puff inhalation Q4 PRN WHEEZE 09/16/23 12/13/23 Rx mcg/actuation aerosol inhaler #15 grams bumetanide 2 mg tablet 2 mg PO BID #60 tabs 09/29/23 12/13/23 Rx insulin glargine 100 unit/mL (3 68 unit (0.68 mL) subcut QAM #15 mL 10/17/23 12/13/23 Rx mL) subcutaneous pen ipratropium bromide 0.02 % 3 ml continuous nebulization QID 10/17/23 12/13/23 Rx solution for inhalation PRN shortness of breath #75 mL calcium polycarbophil 625 mg 625 mg PO QAM #30 tabs 10/30/23 12/13/23 Rx tablet (Fiber (calcium polycarbophil)) colchicine 0.6 mg tablet (Colcrys) 0.6 mg PO BID PRN gout attacks #60 10/30/23 12/13/23 Rx tabs Ozempic Inj 0.25 mg INJ WK 11/07/23 12/13/23 History insulin aspart U-100 100 unit/mL 0 unit subcut TIDM 11/07/23 12/13/23 History (3 mL) subcutaneous pen (Novolog FlexPen U-100 Insulin aspart) allopurinol 100 mg tablet 300 mg PO QAM 12/13/23 12/13/23 History potassium chloride 20 mEq 40 meq (2 x 20 mEq) PO QAM #60 tabs 12/25/23 Rx tablet,extended release(part/cryst) prednisone 10 mg tablet 10 mg PO DIRECTED #14 tabs 12/25/23 Rx spironolactone 25 mg tablet 25 mg PO QAM #30 tabs 12/25/23 Rx ascorbic acid (vitamin C) 500 mg 1,000 mg (2 x 500 mg) PO DAILY #60 01/02/24 Rx tablet (Vitamin C) tabs citalopram 20 mg tablet 20 mg PO HS #30 tabs 01/02/24 Rx colchicine 0.6 mg capsule 0.6 mg PO DAILY #30 caps 01/02/24 Rx prednisone 5 mg tablet 5 mg PO DIRECTED #45 tabs 01/02/24 Rx Patient History Medical History (Updated 02/01/24 @ 12:33 by MARGARET Wang) History of pulmonary embolism Acute exacerbation of chronic obstructive pulmonary disease Acute heart failure with preserved ejection fraction (HFpEF) Acute exacerbation of chronic obstructive pulmonary disease Tobacco abuse Opiate dependence Asthma Surgical History No pertinent past surgical history Family History Sister Asthma Social History Smoking Status: Current every day smoker Tobacco Type: Cigarettes Cigarettes Per Day: 1 cigarette per day; Second Hand Exposure: No; Do You Dip or Chew Tobacco: No; Hx Alcohol Use: No Hx Substance Use: No Preferred Language: Upper Sorbian Communication Ability: Effective Pattern Room Attendant Required: No Beliefs That Will Affect Care: None Current Living Situation: Alone Current Living Situation Comment: lives with sister temporarily Feels Safe at Home: Yes Assistive Devices: Oxygen - at Night and Other Review of Systems Review of Systems: A complete 10 point review of systems was reviewed with the patient with pertinent positives and negatives as per history of present illness. All else were negative. Physical Exam Physical Exam: VITAL SIGNS Vital signs and nursing notes were reviewed. GENERAL 63-year-old female appearing her stated age who is in no acute distress. Communicates well with provider and answers questions appropriately. SKIN Without rashes or lesions. NOSE Midline and without cyanosis. MOUTH/OROPHARYNX Without perioral cyanosis. NECK Neck with FROM. LUNGS Chest wall evaluation demonstrates normal chest wall A:P diameter. Auscultation reveals decreased air entry. No wheezes. CARDIAC RRR with S1/S2. No murmur, rubs, or gallops appreciated. EXTREMITIES Nail clubbing not present. No peripheral cyanosis. Pretibial edema present. +3/5 radial palpated throughout. PSYCH A&Ox3 and cooperates fully with examiner. Pt is very pleasant and interacts well with examiner. Results & Data Results & Data Vital Signs (Past 12 Hours) Vital Signs Temp Pulse Resp BP Pulse Ox O2 Del Method 02/01/24 07:01 36.4 C L 95 H 18 117/78 93 Room Air PG Care Time/CCT Total # of Minutes Spent Total Time Spent with Patient: Total time spent is greater than 50% in coordination of care (as documented) at patient's floor/unit and/or counseling patient: Coding Level of Care Code 67218 INT INP/OBS CARE 3/75MIN Diagnoses COPD (chronic obstructive pulmonary disease) J44.9 COPD type: unspecified COPD Chronic respiratory failure with hypoxia and hypercapnia J96.11; J96.12 Tobacco use disorder F17.200
[2024-02-02] MEDS: INSULIN ASPART PER UNIT CHARGE SC SCH (00:19)
[2024-02-02 06:54] LABS: Hematocrit (blood only) 33.2 % (37.0-47.0); Hemoglobin 10.6 g/dl (12.0-16.0); Mean Corpuscular Hemoglobin 26.6 pg (25.0-34.0); Mean Corpuscular Hgb Conc 31.9 g/dL (32.0-36.0); Mean Corpuscular Volume 83.4 fL (80.0-100.0); Mean Platelet Volume 10.4 fL (9.4-12.4); Platelet Count 349 K/uL (130-400); RDW Coefficient of Variation 15.6 % (11.5-14.5); RDW Standard Deviation 47.2 fL (36.4-46.3); Red Blood Count 3.98 M/uL (4.20-5.40); White Blood Count 12.42 K/ul (4.8-10.8)
[2024-02-02 07:08] LABS: BUN Creatinine Ratio 31.3 (10-20); Calcium 8.9 mg/dl (8.6-10.3); Creatinine Clr Calc Pharmacy 77.8 ml/min; Magnesium 1.6 mg/dl (1.7-2.4); Potassium 3.3 mmol/L (3.5-5.1)
[2024-02-02] MEDS: SPIRONOLACTONE 12.5 MG TAB PO SCH (07:46)
[2024-02-02] MEDS: BUMETANIDE 1 MG TAB PO SCH (07:48)
--- NOTE | 2024-02-02 09:28 | Gastroenterology Progress Note ---
<Statement entered by Chepe El MD - 02/02/24 15:32> Personally discussed with patient and she has decided to decline testing at the present time and consider as OP when she feels improved. IP GI Service will sign off. Date of Service February 02, 2024 Assessment & Plan (1) Dark stools: Plan 63 year old female w/ history of ovarian CA, recurrent admissions for COPD exacerbation, CHF, T2DM, acute on chronic respiratory failure with hypoxia, gout, multiple myeloma, diabetes mellitus, generalized anxiety disorder, tobacco abuse, history of PE, obesity hypoventilation syndrome, anticoagulated w/ Lovenox admitted w/ SOB, dysphagia, sore throat (improving w/ treatment of thrush) - GI asked to evaluate for BRBPR. She is hemodynamically stable w/ BP 110/76 and HGB 12.4 w/ BUN 42/HEALTH CARE ADMINISTRATOR 1.29. There is report of constipation prior to episode of rectal bleeding. DDX discussed: lower GI bleeding such as hemorrhoidal, diverticular vs UGI bleeding given her report of epigastric discomfort. CT without acute findings, EGD/Colon offered 01/27 but refused examination. GI was asked to re-evaluate on 01/31 related to dark stools/black stools. I rediscussed the role for endoscopic evaluation to further investigate the hematochezia and black stools. She remains fearful of proceeding with endoscopic evaluation and is not sure how she would like to proceed. She was evaluated by pulmonary medicine, deemed moderate presurgical risks. She has decided she DOES NOT want to have EGD/Colonoscopy arranged. Please refer to previous notes regarding conservative measures IP GI service to sign off. If she wishes to proceed EGD/Colonoscopy in the future, this will be arranged as an outpatient. I spent a total of 40 minutes on the date of service in review of patient's record, and previously obtained information in person and appropriate medical visit, discussion and education of plan, with patient and/or caregiver, placing orders for tests/referral/procedures as medically necessary and documentation of pertinent clinical information in patient's medical records for their visit today.Thank you for allowing us to participate in the care of this patient. Please call with any acute changes, questions or concerns. Please see addendum below with additional recommendation from my supervising physician. Admission and Anticipated Discharge Date Admission Date: January 17, 2024 Subjective Pt was seen and evaluated, chart reviewed. She has decided that she DOES NOT want to move forward with EGD/Colonoscopy. Review of Systems Review of Systems: All other findings negative except as noted in HPI. Physical Exam Gastrointestinal (Abdomen): normal bowel sounds, soft, nontender, no hepatosplenomegaly Results & Data Results & Data Vital Signs (Past 12 Hours) Vital Signs Temp Pulse Pulse Resp BP Pulse Ox O2 Del Method 02/02/24 07:22 36.5 C 91 H 18 115/75 91 Room Air 02/01/24 23:43 CPAP 02/01/24 23:40 98 H 10 L 98 Laboratory Results 02/02/24 02/02/24 02/02/24 Range/Units 07:39 06:23 04:28 WBC 12.42 H (4.8-10.8) K/ul RBC 3.98 L (4.20-5.40) M/uL Hgb 10.6 L (12.0-16.0) g/dl Hct 33.2 L (37.0-47.0) % MCV 83.4 (80.0-100.0) fL MCH 26.6 (25.0-34.0) pg MCHC 31.9 L (32.0-36.0) g/dL RDW Std Deviation 47.2 H (36.4-46.3) fL RDW Coeff of Malick 15.6 H (11.5-14.5) % Plt Count 349 (130-400) K/uL MPV 10.4 (9.4-12.4) fL Heparin Anti-Xa, Unfract (0.3-0.7) IU/ml Sodium 131 L (136-145) mmol/L Potassium 3.3 L (3.5-5.1) mmol/L Chloride 92 L (98-107) mmol/L Carbon Dioxide 31 (21-32) mmol/L Anion Gap 8 (3-11) BUN 25 H (6-23) mg/dl Creatinine 0.80 (0.6-1.2) mg/dl Est Cr Clr Drug Dosing 77.8 ml/min eGFR 83.26 BUN/Creatinine Ratio 31.3 H (10-20) Glucose 94 (70-99(Fasting)) mg/dl POC Glucose 121 H 100 H (70-99) mg/dl Calcium 8.9 (8.6-10.3) mg/dl Magnesium 1.6 L (1.7-2.4) mg/dl 02/02/24 02/01/24 02/01/24 Range/Units 00:04 20:40 20:38 WBC (4.8-10.8) K/ul RBC (4.20-5.40) M/uL Hgb (12.0-16.0) g/dl Hct (37.0-47.0) % MCV (80.0-100.0) fL MCH (25.0-34.0) pg MCHC (32.0-36.0) g/dL RDW Std Deviation (36.4-46.3) fL RDW Coeff of Malick (11.5-14.5) % Plt Count (130-400) K/uL MPV (9.4-12.4) fL Heparin Anti-Xa, Unfract (0.3-0.7) IU/ml Sodium (136-145) mmol/L Potassium (3.5-5.1) mmol/L Chloride (98-107) mmol/L Carbon Dioxide (21-32) mmol/L Anion Gap (3-11) BUN (6-23) mg/dl Creatinine (0.6-1.2) mg/dl Est Cr Clr Drug Dosing ml/min eGFR BUN/Creatinine Ratio (10-20) Glucose (70-99(Fasting)) mg/dl POC Glucose 153 H 452 H* 368 H* (70-99) mg/dl Calcium (8.6-10.3) mg/dl Magnesium (1.7-2.4) mg/dl 02/01/24 02/01/24 02/01/24 Range/Units 16:46 11:33 09:39 WBC 11.46 H (4.8-10.8) K/ul RBC 4.18 L (4.20-5.40) M/uL Hgb 11.1 L (12.0-16.0) g/dl Hct 35.1 L (37.0-47.0) % MCV 84.0 (80.0-100.0) fL MCH 26.6 (25.0-34.0) pg MCHC 31.6 L (32.0-36.0) g/dL RDW Std Deviation 47.5 H (36.4-46.3) fL RDW Coeff of Malick 15.8 H (11.5-14.5) % Plt Count 352 (130-400) K/uL MPV 10.1 (9.4-12.4) fL Heparin Anti-Xa, Unfract (0.3-0.7) IU/ml Sodium (136-145) mmol/L Potassium (3.5-5.1) mmol/L Chloride (98-107) mmol/L Carbon Dioxide (21-32) mmol/L Anion Gap (3-11) BUN (6-23) mg/dl Creatinine (0.6-1.2) mg/dl Est Cr Clr Drug Dosing ml/min eGFR BUN/Creatinine Ratio (10-20) Glucose (70-99(Fasting)) mg/dl POC Glucose 253 H 218 H (70-99) mg/dl Calcium (8.6-10.3) mg/dl Magnesium (1.7-2.4) mg/dl 02/01/24 Range/Units 08:32 WBC (4.8-10.8) K/ul RBC (4.20-5.40) M/uL Hgb (12.0-16.0) g/dl Hct (37.0-47.0) % MCV (80.0-100.0) fL MCH (25.0-34.0) pg MCHC (32.0-36.0) g/dL RDW Std Deviation (36.4-46.3) fL RDW Coeff of Malick (11.5-14.5) % Plt Count (130-400) K/uL MPV (9.4-12.4) fL Heparin Anti-Xa, Unfract < 0.10 L (0.3-0.7) IU/ml Sodium (136-145) mmol/L Potassium (3.5-5.1) mmol/L Chloride (98-107) mmol/L Carbon Dioxide (21-32) mmol/L Anion Gap (3-11) BUN (6-23) mg/dl Creatinine (0.6-1.2) mg/dl Est Cr Clr Drug Dosing ml/min eGFR BUN/Creatinine Ratio (10-20) Glucose (70-99(Fasting)) mg/dl POC Glucose (70-99) mg/dl Calcium (8.6-10.3) mg/dl Magnesium (1.7-2.4) mg/dl PG Care Time/CCT Total # of Minutes Spent Total Time Spent with Patient: Total time spent is greater than 50% in coordination of care (as documented) at patient's floor/unit and/or counseling patient: Coding Level of Care Code 57866 SUB INP/OBS CARE 2/35MIN Diagnoses Dark stools R19.5
--- NOTE | 2024-02-02 10:28 | Pharmacy Report ---
Pharmacy Glycemic Short Note 2 - Date of Service February 02, 2024 - Glycemic Short BSG Results (Last 24 hours): 02/01/24 02/01/24 02/01/24 11:33 16:46 20:38 Glucose POC Glucose 218 H 253 H 368 H* 02/01/24 02/02/24 02/02/24 20:40 00:04 04:28 Glucose POC Glucose 452 H* 153 H 100 H 02/02/24 02/02/24 06:23 07:39 Glucose 94 POC Glucose 121 H OUTPATIENT ANTIDIABETIC REGIMEN: * Lantus 68 units SC QAM * Novolog 10 units SC AC * Ozempic 0.25 mg SC weekly ASSESSMENT: 02/01 * 139 units of insulin total given yesterday, 68units were basal and 71units were bolus. * On 01/30 she was placed on her home dose of Lantus (68units) and continues on that now. * Her BSGs were stable 01/30, but yesterday she had some high BSGs ranging from 218mg/dl with lunch to 452mg/dl at bedtime. Bolus insulin parameters were tightened last evening (CF of 12 and CHO ratio of 4) and fasting BSG was 100 this morning. Bolus insulin parameters were changed slightly this morning (CF of 15 and CHO ratio of 3.5). 01/29 * 63 y/o F admitted for esophagitis and rectal bleeding last month. Patient has been frequently admitted here and known to pharmacy glycemic service. * She had been on Basal insulin 65 units last few days which is similar dosing to what she had been on during previous admissions. Will continue the same. * BSGs were elevated above 300 mg/dl yesterday, so pharmacy consulted for glycem ic management. * Novolog carb ratio tightened slightly last night. * Fasting BSG was 153 mg/dl today morning, pre-lunch BSG = 172 mg/dl. Continued same parameters as yesterday. PLAN FOR INPATIENT GLYCEMIC CONTROL: * Hold outpatient anti-diabetic meds. * Basal insulin * Lantus 68 units SQ QAM * Bolus insulin * NovoLog per scale ACHS or Q6hrs while NPO * Goal Range: Low 110 mg/dL - High 150 mg/dL * Correction Factor: 15 mg/dL/unit * Nutritional / Prandial insulin per carb ratio of 1 unit per 3.5 grams CHO consumed
[2024-02-02] MEDS: POTASSIUM CHLORIDE CRTAB 20 MEQ TABCR PO STA (10:35)
[2024-02-02] MEDS: MAGNESIUM SULFATE / D5W 1 GM/100 ML BAG IV ONE (10:35)
--- NOTE | 2024-02-02 11:02 | Pulmonology Progress Note ---
Date of Service February 02, 2024 Assessment & Plan (1) COPD (chronic obstructive pulmonary disease): Plan: 63-year-old female with a prior diagnosis of COPD currently managed on a neuro and as needed rescue inhaler. She reports that her breathing has been well-c ontrolled since being in the hospital. She feels as though she has triggers in the outpatient setting which make her breathing worse. She offers no complaints of shortness of breath, wheezing, or decline in her symptoms since being here. On review of the patient's prior records, we only have limited pulmonary function testing that had been obtained while inpatient. She has no full PFT results available. Her handheld spirometry that was performed while in the hospital has not demonstrated any significant obstructive physiology. Concerning for restrictive physiology may be more on the table, however total lung capacity cannot be assessed at this time. Regardless, her symptoms are extremely mild managed on Anoro alone at this point. Would continue with current treatment plan. COPD type: unspecified COPD Qualified Code(s): J44.9 - Chronic obstructive pulmonary disease, unspecified (2) Chronic respiratory failure with hypoxia and hypercapnia: Plan: Likely driven by the patient's morbid obesity and likely obstructive sleep ap gale. She is currently utilizing AVAPS and doing so well at this time. Would continue to utilize AVAPS with any naps and nocturnally with sleep. (3) Tobacco use disorder: Plan: Continue encourage complete smoking cessation. Plan Patient represents a moderate presurgical risk given her obesity, hypoxemia, and hypercarbic respiratory failure. Patient should be considered for possible need for BiPAP therapy intra procedurally and consideration for BiPAP and/or the patient's AVAPS postoperatively while anesthetic is wearing off. That being said, the patient is maximized at her pulmonary status at this point and would not fully necessary intervention based on her pulm status alone at this point. The patient continues to seem to make excuses for why she does not want undergo other intervention. From a pulmonary perspective, she is stable as possible and there is no need for further intervention or recommendation from our perspective. Thank you for allowing us participate in the care of this pleasant patient. Please feel free to reach out to us further for any other recommendations. Admission and Anticipated Discharge Date Admission Date: January 17, 2024 Supervising Physician Co-Signing Physician Notes I saw and evaluated the patient with David Howell PA-C, and agree with findings and plan as documented in the note. 2D echo 07/28/2023: EF 60-65%, RV hypertrophy mild, normal systolic function Spirometry 03/06/2023: Nonspecific spirometry with no obstructive lung dysfunction FEV1 1.14 L 51%, FVC 1.57 L 54%, FEV1/FVC 94% Family history of lung cancer in maternal side Still smoking approximately 4-5 cigarettes on a daily basis Patient seen and examined at bedside. No acute distress, no events overnight Was saturating well on room air. Was having lunch. Denied any nausea vomiting No headache, no blurry vision No hematochezia since coming to the hospital, does complain of some blood while wiping. Has been compliant with BiPAP Constitutional: No acute distress HEENT: EOMI, PERRLA Respiratory system: Decreased air entry bilaterally, no wheeze, no rhonchi, mild crackles bilaterally CVS: S1-S2 positive, no murmurs or gallops Abdomen: Soft, nontender, nondistended, positive bowel sounds x4, obese Extremities: +2 pulses bilaterally radialis/ dorsalis pedis, no cyanosis, +3 pitting edema bilateral lower extremity Neuro: Awake alert oriented x3 Psych: Normal mood and affect G/U: No [place] Plan: Patient seems to have restrictive lung disease with ELEUTERIO/OHS and chronic hypercapnic respiratory failure There is no absolute contraindication from pulmonary perspective for patient to undergo EGD/colonoscopy She will follow into at least moderate risk given the chronic hypercapnic respiratory failure She already has AVAPS machine. Would recommend BiPAP 12/8 with backup rate of 16 in the PACU Continue with Anoro and Arnuity while in the hospital No further recommendation from pulmonary perspective, will sign off Please call directly with any questions Please note the above document was generated using voice recognition software. It may contain grammatical, syntax or spelling errors.Any formal questions or concerns about the content, text or information contained within the body of this dictation should be directly addressed to the provider for clarification. Subjective Patient seen and evaluated at bedside. Apparently, she has refused EGD. She reports multiple concerns about the potential for procedure Review of Systems Review of Systems: A complete 10 point review of systems was reviewed with the patient with pertinent positives and negatives as per history of present illness. All else were negative. Physical Exam Physical Exam: VITAL SIGNS Vital signs and nursing notes were reviewed. GENERAL 63-year-old female appearing her stated age who is in no acute distress. Communicates well with provider and answers questions appropriately. SKIN Without rashes or lesions. NOSE Midline and without cyanosis. MOUTH/OROPHARYNX Without perioral cyanosis. NECK Neck with FROM. LUNGS Chest wall evaluation demonstrates normal chest wall A:P diameter. Auscultation reveals decreased air entry. No wheezes. CARDIAC RRR with S1/S2. No murmur, rubs, or gallops appreciated. EXTREMITIES Nail clubbing not present. No peripheral cyanosis. Pretibial edema present. +3/5 radial palpated throughout. PSYCH A&Ox3 and cooperates fully with examiner. Pt is very pleasant and interacts well with examiner. Results & Data Results & Data Vital Signs (Past 12 Hours) Vital Signs Temp Pulse Pulse Resp BP Pulse Ox O2 Del Method 02/02/24 07:50 CPAP 02/02/24 07:22 36.5 C 91 H 18 115/75 91 Room Air 02/01/24 23:43 CPAP 02/01/24 23:40 98 H 10 L 98 PG Care Time/CCT Total # of Minutes Spent Total Time Spent with Patient: Total time spent is greater than 50% in coordination of care (as documented) at patient's floor/unit and/or counseling patient: Coding Level of Care Code 34856 SUB INP/OBS CARE 2/35MIN Diagnoses COPD (chronic obstructive pulmonary disease) J44.9 COPD type: unspecified COPD Chronic respiratory failure with hypoxia and hypercapnia J96.11; J96.12 Tobacco use disorder F17.200
--- NOTE | 2024-02-02 13:44 | Hospitalist Progress Note ---
Date of Service February 02, 2024 Assessment & Plan (1) History of pulmonary embolism: (2) Thrush of mouth and esophagus: (3) DM II (diabetes mellitus, type II), controlled: (4) Heart failure with preserved ejection fraction: (5) Generalized anxiety disorder: (6) Tobacco use disorder: (7) Multiple myeloma: (8) Chronic respiratory failure with hypoxia and hypercapnia: (9) COPD (chronic obstructive pulmonary disease): Plan 63-year-old female with past medical history of recurrent admissions for COPD exacerbation and CHF (this is her 15th admission), obesity, type 2 diabetes mellitus, acute on chronic hypoxic and hypercapnic respiratory failure, history of PE on Lovenox, obesity hypoventilation syndrome, history of multiple myeloma in 2015 and also history of ovarian cancer in the remote past presented with complaint of difficulty swallowing and worsening of her chronic shortness of breath. She was initially diagnosed with thrush and was started on IV fluconazole Patient then started getting lethargic and somnolent and was thought this was related to her being on psych meds and IV fluconazole. IV fluconazole was stopped. Mentation improved but then patient started experiencing rectal bleeding on 01/28/2024. GI was consulted and they recommended holding Lovenox. GI recommended colonoscopy but patient declined #Rectal bleeding #History of PE on chronic anticoagulation with Lovenox #History of multiple myeloma in 2015 status post stem cell transplant Patient was seen by GI Patient declined colonoscopy CT abdomen pelvis showed no acute process within the abdomen or pelvis from 01/28/2024 No change in an expansile lytic anterior right fourth rib lesion and a lucent right acetabular lesion from prior exams Lovenox has been held per GI recommendations Monitor H&H Patient has lytic lesion in fourth rib and femur As per previous notes, patient prefers to have her care and [place] area with oncology I spoke with patient about seeing oncologist: She only wants to see her own oncologist Dr. Najera in [place] H&H has dropped since admission but stable: No bleeding today Patient was seen by GI who recommended EGD/colonoscopy and pulmonary clearance was obtained with pulmonary recommended using BiPAP therapy intra procedurally and consideration for BiPAP and/or patient's AVAPS postoperatively while anesthetic is wearing off. GI then reviewed these recommendations with patient and she declined EGD/colonoscopy for the second time I have discussed with the patient that her Lovenox has been stopped because of GI bleeding and without knowing source of bleeding resuming Lovenox will cause further bleeding. Without Lovenox, patient is a high risk for PE which can also be fatal. Patient verbalized understanding this #Metabolic encephalopathy #Anxiety disorder Mentation has improved and is at her baseline Likely related to fluconazole causing increased levels of Xanax and Seroquel due to interactions She is currently on Seroquel 50 mg p.o. nightly and Xanax 0.25 mg p.o. twice daily Fluconazole has been stopped Continue citalopram 10 mg p.o. nightly #MONICA #Hyponatremia Renal function has improved Patient was restarted on diuretics, monitor sodium level Avoid nephrotoxic agents Monitor renal function and electrolytes #Acute on chronic hypoxic/hypercapnic respiratory failure (combination of COPD plus CHF) #Chronic COPD #Obesity hypoventilation syndrome Continue Anoro Ellipta Continue nebs as needed Prednisone dose has been reduced from 10 mg daily to 5 mg daily Patient uses oxygen at baseline: 3 L continuously to as needed CPAP at bedtime #Acute on chronic diastolic congestive heart failure with preserved ejection fraction Echo from July 2023 shows EF of 60 to 65% Continue Bumex 2 mg daily and increase spironolactone to 25 mg daily I/O monitoring Daily weights #Insulin-dependent type 2 diabetes mellitus A1c is 8.3 on 01/19/2024 Patient is on Lantus 65 units in the morning and insulin coverage Pharmacy managing glycemic control CODE STATUS: Full code: Patient met with palliative care on 01/29/2024 DVT prophylaxis: Bilateral SCDs PT/OT recommended home with home health services Patient states she is not ready for discharge to [facility] as he is Care plan discussed with patient, nursing staff Admission and Anticipated Discharge Date Admission Date: January 17, 2024 Subjective Patient seen and examined Labs reviewed Still feels her legs are swollen but has not been elevating her legs Diuretics were increased yesterday although patient tells me that she was told she is not on diuretics: I have reviewed this yesterday with the patient and I reviewed her medical care and medications with the patient again today She initially wanted EGD/colonoscopy and pulmonology also got involved for giving clearance and recommended using BiPAP therapy intra procedurally and consideration for BiPAP and/or patient's AVAPS postoperatively while anesthetic is wearing off. GI was willing to do the procedure with these recommendations but patient refused yet again. Physical Exam Physical Exam: General: No acute distress Psych: Awake and alert HEENT: Anicteric sclera, moist oral mucosa CVS: Regular rate and rhythm Lungs: Bilateral air entry with decreased breath sounds at the bases, no wheezing noted Abdomen: Soft, nontender, no rebound, no guarding Ext: 1+ pitting edema noted Results & Data Results & Data Vital Signs (Past 12 Hours) Vital Signs Temp Pulse Resp BP Pulse Ox O2 Del Method 02/02/24 07:50 CPAP 02/02/24 07:22 36.5 C 91 H 18 115/75 91 Room Air Laboratory Results Laboratory Results - last 24 hr 02/01/24 02/01/24 02/01/24 16:46 20:38 20:40 WBC RBC Hgb Hct MCV MCH MCHC RDW Std Deviation RDW Coeff of Malick Plt Count MPV Sodium Potassium Chloride Carbon Dioxide Anion Gap BUN Creatinine Est Cr Clr Drug Dosing eGFR BUN/Creatinine Ratio Glucose POC Glucose 253 H 368 H* 452 H* Calcium Magnesium 02/02/24 02/02/24 02/02/24 00:04 04:28 06:23 WBC 12.42 H RBC 3.98 L Hgb 10.6 L Hct 33.2 L MCV 83.4 MCH 26.6 MCHC 31.9 L RDW Std Deviation 47.2 H RDW Coeff of Malick 15.6 H Plt Count 349 MPV 10.4 Sodium 131 L Potassium 3.3 L Chloride 92 L Carbon Dioxide 31 Anion Gap 8 BUN 25 H Creatinine 0.80 Est Cr Clr Drug Dosing 77.8 eGFR 83.26 BUN/Creatinine Ratio 31.3 H Glucose 94 POC Glucose 153 H 100 H Calcium 8.9 Magnesium 1.6 L 02/02/24 02/02/24 07:39 11:44 WBC RBC Hgb Hct MCV MCH MCHC RDW Std Deviation RDW Coeff of Malick Plt Count MPV Sodium Potassium Chloride Carbon Dioxide Anion Gap BUN Creatinine Est Cr Clr Drug Dosing eGFR BUN/Creatinine Ratio Glucose POC Glucose 121 H 183 H Calcium Magnesium PG Care Time/CCT Total # of Minutes Spent Total Time Spent with Patient: Total time spent is greater than 50% in coordination of care (as documented) at patient's floor/unit and/or counseling patient: Coding Level of Care Code 56027 SUB INP/OBS CARE 3/50MIN Diagnoses History of pulmonary embolism Z86.711 Thrush of mouth and esophagus B37.81; B37.0 DM II (diabetes mellitus, type II), controlled E11.9 Chronic heart failure with preserved ejection fraction I50.32 Heart failure chronicity: chronic Generalized anxiety disorder F41.1 Tobacco use disorder F17.200 Multiple myeloma C90.00 Multiple myeloma remission status: unspecified Chronic respiratory failure with hypoxia and hypercapnia J96.11; J96.12 COPD (chronic obstructive pulmonary disease) J44.9 COPD type: unspecified COPD (4) Heart failure with preserved ejection fraction Heart failure chronicity: chronic Qualified Code(s): I50.32 - Chronic diastolic (congestive) heart failure (7) Multiple myeloma Multiple myeloma remission status: unspecified Qualified Code(s): C90.00 - Multiple myeloma not having achieved remission (9) COPD (chronic obstructive pulmonary disease) COPD type: unspecified COPD Qualified Code(s): J44.9 - Chronic obstructive pulmonary disease, unspecified
[2024-02-02] MEDS: POTASSIUM CHLORIDE CRTAB 20 MEQ TABCR PO ONE (16:21)
[2024-02-02] MEDS: MAGNESIUM OXIDE 400 MG TAB PO SCH (16:21)
[2024-02-03] MEDS: SPIRONOLACTONE 25 MG TAB PO SCH (08:30)
--- NOTE | 2024-02-03 12:32 | Hospitalist Progress Note ---
Date of Service February 03, 2024 Assessment & Plan (1) History of pulmonary embolism: (2) Thrush of mouth and esophagus: (3) DM II (diabetes mellitus, type II), controlled: (4) Heart failure with preserved ejection fraction: (5) Generalized anxiety disorder: (6) Tobacco use disorder: (7) Multiple myeloma: (8) Chronic respiratory failure with hypoxia and hypercapnia: (9) COPD (chronic obstructive pulmonary disease): Plan 63-year-old female with past medical history of recurrent admissions for COPD exacerbation and CHF (this is her 15th admission), obesity, type 2 diabetes mellitus, acute on chronic hypoxic and hypercapnic respiratory failure, history of PE on Lovenox, obesity hypoventilation syndrome, history of multiple myeloma in 2015 and also history of ovarian cancer in the remote past presented with complaint of difficulty swallowing and worsening of her chronic shortness of breath. She was initially diagnosed with thrush and was started on IV fluconazole Patient then started getting lethargic and somnolent and was thought this was related to her being on psych meds and IV fluconazole. IV fluconazole was stopped. Mentation improved but then patient started experiencing rectal bleeding on 01/28/2024. GI was consulted and they recommended holding Lovenox. GI recommended colonoscopy but patient declined #Rectal bleeding #History of PE on chronic anticoagulation with Lovenox #History of multiple myeloma in 2015 status post stem cell transplant Patient was seen by GI Patient declined colonoscopy CT abdomen pelvis showed no acute process within the abdomen or pelvis from 01/28/2024 No change in an expansile lytic anterior right fourth rib lesion and a lucent right acetabular lesion from prior exams Lovenox has been held per GI recommendations Monitor H&H Patient has lytic lesion in fourth rib and femur As per previous notes, patient prefers to have her care and [place] area with oncology I spoke with patient about seeing oncologist: She only wants to see her own oncologist Dr. Najera in [place] H&H has dropped since admission but stable: No bleeding today Patient was seen by GI who recommended EGD/colonoscopy and pulmonary clearance was obtained with pulmonary recommended using BiPAP therapy intra procedurally and consideration for BiPAP and/or patient's AVAPS postoperatively while anesthetic is wearing off. GI then reviewed these recommendations with patient and she declined EGD/colonoscopy for the second time I have discussed with the patient that her Lovenox has been stopped because of GI bleeding and without knowing source of bleeding resuming Lovenox will cause further bleeding. Without Lovenox, patient is a high risk for PE which can also be fatal. Patient verbalized understanding this #Metabolic encephalopathy #Anxiety disorder Mentation has improved and is at her baseline Likely related to fluconazole causing increased levels of Xanax and Seroquel due to interactions She is currently on Seroquel 50 mg p.o. nightly and Xanax 0.25 mg p.o. twice daily Fluconazole has been stopped Continue citalopram 10 mg p.o. nightly #MONICA #Hyponatremia Renal function has improved Patient was restarted on diuretics, monitor sodium level Avoid nephrotoxic agents Monitor renal function and electrolytes #Acute on chronic hypoxic/hypercapnic respiratory failure (combination of COPD plus CHF) #Chronic COPD #Obesity hypoventilation syndrome Continue Anoro Ellipta Continue nebs as needed Prednisone dose has been reduced from 10 mg daily to 5 mg daily Patient uses oxygen at baseline: 3 L continuously to as needed CPAP at bedtime #Acute on chronic diastolic congestive heart failure with preserved ejection fraction Echo from July 2023 shows EF of 60 to 65% Continue Bumex 2 mg daily and spironolactone to 25 mg daily with review of increasing diuretics to her home dose of Bumex 2 mg twice daily and spironolactone 50 mg daily prior to discharge Metolazone 2.5 mg p.o. x 1 dose today I/O monitoring Daily weights #Insulin-dependent type 2 diabetes mellitus A1c is 8.3 on 01/19/2024 Patient is on Lantus 65 units in the morning and insulin coverage Pharmacy managing glycemic control CODE STATUS: Full code: Patient met with palliative care on 01/29/2024 DVT prophylaxis: Bilateral SCDs PT/OT recommended home with home health services: Patient is refusing home hea lth services Patient is now agreeable to being discharged but not until 02/05/2024 Care plan discussed with patient, nursing staff Admission and Anticipated Discharge Date Admission Date: January 17, 2024 Subjective Patient seen and examined Patient denies any rectal bleeding or dark stools Main complaint today is her leg edema. She is aware that she needs to elevate her legs and yet she dangles her legs. There is a stool available for her to elevate her legs and she has been instructed on a daily basis to do so. Patient is agreeable to using 1 dose of metolazone today. Patient states in the past she was on metolazone 3 times a week and it caused worsening of her kidney function and hypokalemia but is willing to try 1 dose of metolazone to get some more fluid out. I have explained to the patient that her leg edema is also partly from lymphedema and venous insufficiency and she is agreeable to wearing stockings. She denies any chest pain or shortness of breath. Physical Exam Physical Exam: General: No acute distress Psych: Awake and alert HEENT: Anicteric sclera, moist oral mucosa CVS: Regular rate and rhythm Lungs: Bilateral air entry with decreased breath sounds at the bases, no wheezing noted Abdomen: Soft, nontender, no rebound, no guarding Ext: 2+ pitting edema noted Results & Data Results & Data Vital Signs (Past 12 Hours) Vital Signs Temp Pulse Resp BP Pulse Ox O2 Del Method 02/03/24 08:15 Room Air 02/03/24 07:30 36.7 C 107 H 20 109/72 92 Room Air PG Care Time/CCT Total # of Minutes Spent Total Time Spent with Patient: Total time spent is greater than 50% in coordination of care (as documented) at patient's floor/unit and/or counseling patient: Coding Level of Care Code 17167 SUB INP/OBS CARE 05/21MIN Diagnoses History of pulmonary embolism Z86.711 Thrush of mouth and esophagus B37.81; B37.0 DM II (diabetes mellitus, type II), controlled E11.9 Chronic heart failure with preserved ejection fraction I50.32 Heart failure chronicity: chronic Generalized anxiety disorder F41.1 Tobacco use disorder F17.200 Multiple myeloma C90.00 Multiple myeloma remission status: unspecified Chronic respiratory failure with hypoxia and hypercapnia J96.11; J96.12 COPD (chronic obstructive pulmonary disease) J44.9 COPD type: unspecified COPD (4) Heart failure with preserved ejection fraction Heart failure chronicity: chronic Qualified Code(s): I50.32 - Chronic diastolic (congestive) heart failure (7) Multiple myeloma Multiple myeloma remission status: unspecified Qualified Code(s): C90.00 - Multiple myeloma not having achieved remission (9) COPD (chronic obstructive pulmonary disease) COPD type: unspecified COPD Qualified Code(s): J44.9 - Chronic obstructive pulmonary disease, unspecified
[2024-02-03] MEDS: metOLazone 2.5 MG TABLET PO ONE (13:43)
[2024-02-03] MEDS ORDERED: SENNA 8.6 MG TAB PO PRN (17:15)
[2024-02-03] MEDS: SENNA 8.6 MG TAB PO ONE (21:09)
[2024-02-04 07:27] LABS: Hematocrit (blood only) 33.3 % (37.0-47.0); Hemoglobin 10.3 g/dl (12.0-16.0); Mean Corpuscular Hemoglobin 26.1 pg (25.0-34.0); Mean Corpuscular Hgb Conc 30.9 g/dL (32.0-36.0); Mean Corpuscular Volume 84.5 fL (80.0-100.0); Mean Platelet Volume 10.3 fL (9.4-12.4); Nucleated RBC # (auto) 0.03 K/uL (0.00-0.12); Nucleated RBC % (auto) 0.3 %; Platelet Count 373 K/uL (130-400); RDW Coefficient of Variation 15.9 % (11.5-14.5); RDW Standard Deviation 48.1 fL (36.4-46.3); Red Blood Count 3.94 M/uL (4.20-5.40); White Blood Count 11.32 K/ul (4.8-10.8)
[2024-02-04 07:54] LABS: Albumin Globulin Ratio 1.5 (0.9-2); Albumin Level 3.8 gm/dl (3.4-5.0); BUN Creatinine Ratio 26.4 (10-20); Bilirubin,Total 0.3 mg/dl (0.2-1.0); Creatinine Clr Calc Pharmacy 68.2 ml/min; Globulin 2.5 gm/dl (2.5-4.0); Magnesium 1.6 mg/dl (1.7-2.4); Potassium 3.5 mmol/L (3.5-5.1); Total Protein 6.3 gm/dl (6.0-8.3)
--- NOTE | 2024-02-04 08:18 | Hospitalist Progress Note ---
Date of Service February 04, 2024 Assessment & Plan (1) Drowsiness: Plan: metabolic encephalopathy significantly drowsy improved with reduction of medications and reinforcement of noninvasive positive pressure ventilation use even with napping. Suspected the fluconazole was causing increased levels of Xanax and Seroquel as they do interact Decreased Seroquel to 100mg hs x 2 nights and then held completely x 2 nights--> now c/o significant insomnia--resume Seroquel 50mg hs Held Xanax x 1 day, then resumed at lower dose of 0.25mg po tid--> with ongoing drowsiness, will reduce further to 0.25mg po BID Discontinued fluconazole (2) History of pulmonary embolism: Plan: rectal bleeding while being anticoagulated, , previous VTE assocoated with recurrent malignancy with history of both ovarian ca and multiple myeloma s/p stem cell transplant, high risk for recurrence but with current anemia and presistent bleeding acute blood loss anemia, pt has refused endoscopy (3) Acute and chronic respiratory failure with hypoxia: Plan: ongoing smoking, COPD, and heart failure preserved ejection fraction Is now weaned off O2 to room air and no further respiratory distress oral prednisone 5mg with attempts at outpt taper prehospital Counseled on smoking cessation Continue Trilogy AVAPS every night and with now for obesity hypoventilation syndrome ABG 01/19 7.41/57/73 on 3LNC, chronic hypercapnia (4) DM II (diabetes mellitus, type II), controlled: Plan: With ongoing hyperglycemia which is now improving but not yet at goal Continue Lantus 65 units qAM and further tighten Novolog Continue accuchecks last A1C 9.6% in 09/2023 and now down to 8.3% (5) Heart failure with preserved ejection fraction: Plan: Acute on chronic HFpEF, with increased LE edema now slightly improved with IV Bumex She traditionally cannot follow a fluid restriction at home but does try to follow low sodium diet Does have a venous stasis component and sits in chair with legs dangling all day long persistent mild hyponatremia . hypomagnesemia, currently bumex 2 mg am and spironolactone 25 (6) Generalized anxiety disorder: Plan: Her Celexa dose was recently increased to 20mg-having significant drowsiness which may have been due to interaction of Seroquel and Xanax with fluconazole - lowered dose for now to 10mg Resume Seroquel at only 50mg qhs Reduced Xanax to 0.25 Mg p.o. 2 times daily (7) Thrush of mouth and esophagus: Plan: resolved Plan History of multiple myeloma status post stem cell transplant 2014, and ovarian cancer 32 years ago, has some lytic bone lesions in rib and femur, pt is reluctant to have further work up here and wants to return to [facility] History of gout with recent flares continues on allopurinol refusing home health service Admission and Anticipated Discharge Date Admission Date: January 17, 2024 Subjective I had a long discussion with Ms. Monzon, regarding establishing care and taking care of her medical problems as well as home compliance. She said she is going to work hard this time to help improve these issues. We talked about her lytic bone lesions that have yet to be diagnosed. She remains with lower extremity edema about the same she does have her stockings on but typically has her legs dependent during exam Physical Exam Physical Exam: awake and alert, less SOB, still with peripheral edema Results & Data Results & Data Vital Signs (Past 12 Hours) Vital Signs Temp Pulse Pulse Resp BP BP Pulse Ox 02/04/24 07:39 97.9 F 101 H 20 118/73 97 02/03/24 22:50 97 H 17 96 02/03/24 20:17 97.5 F L 100 H 18 111/75 98 O2 Del Method FiO2 02/04/24 07:39 Room Air 02/03/24 22:50 21 02/03/24 20:17 Room Air Laboratory Results Reviewed CBC reviewed chemistry reviewed magnesium augmented repletion PG Care Time/CCT Total # of Minutes Spent Total Time Spent with Patient: Total time spent is greater than 50% in coordination of care (as documented) at patient's floor/unit and/or counseling patient: Coding Level of Care Code 31601 SUB INP/OBS CARE 2/35MIN Diagnoses Drowsiness R40.0 History of pulmonary embolism Z86.711 Acute and chronic respiratory failure with hypoxia J96.21 DM II (diabetes mellitus, type II), controlled E11.9 Chronic heart failure with preserved ejection fraction I50.32 Heart failure chronicity: chronic Generalized anxiety disorder F41.1 Thrush of mouth and esophagus B37.81; B37.0 (5) Heart failure with preserved ejection fraction Heart failure chronicity: chronic Qualified Code(s): I50.32 - Chronic diastolic (congestive) heart failure
[2024-02-04] MEDS: LANTUS PER UNIT CHARGE SC SCH (09:01)
--- NOTE | 2024-02-04 14:43 | Pharmacy Report ---
Pharmacy Glycemic Short Note 2 - Date of Service February 04, 2024 - Glycemic Short BSG Results (Last 24 hours): 02/03/24 02/03/24 02/04/24 16:25 20:27 06:52 Glucose 161 H POC Glucose 199 H 157 H 02/04/24 02/04/24 07:37 11:20 Glucose POC Glucose 200 H 228 H OUTPATIENT ANTIDIABETIC REGIMEN: * Lantus 68 units SC QAM * Novolog 10 units SC AC * Ozempic 0.25 mg SC weekly ASSESSMENT: 02/03 * 131 units of insulin total given yesterday, 68 were basal and 63 were bolus. * Fasting BSG this morning was 200mg/dl so the lantus was increased slightly to 72 units daily * BSGs have been trending up so correction factor and CHO ratio tightened slightly AC and loosened slightly at HS (due to increase in Basal dose and possible over correction with bolus dosing at bedtime recently). * Pt continues on daily steroid of prednisone 5mg daily. 02/01 * 139 units of insulin total given yesterday, 68units were basal and 71units were bolus. * On 01/30 she was placed on her home dose of Lantus (68units) and continues on that now. * Her BSGs were stable 01/30, but yesterday she had some high BSGs ranging from 218mg/dl with lunch to 452mg/dl at bedtime. Bolus insulin parameters were tightened last evening (CF of 12 and CHO ratio of 4) and fasting BSG was 100 this morning. Bolus insulin parameters were changed slightly this morning (CF of 15 and CHO ratio of 3.5). 01/29 * 63 y/o F admitted for esophagitis and rectal bleeding last month. Patient has been frequently admitted here and known to pharmacy glycemic service. * She had been on Basal insulin 65 units last few days which is similar dosing to what she had been on during previous admissions. Will continue the same. * BSGs were elevated above 300 mg/dl yesterday, so pharmacy consulted for glycemic management. * Novolog carb ratio tightened slightly last night. * Fasting BSG was 153 mg/dl today morning, pre-lunch BSG = 172 mg/dl. Continued same parameters as yesterday. PLAN FOR INPATIENT GLYCEMIC CONTROL: * Hold outpatient anti-diabetic meds. * Basal insulin * Lantus 72 units SQ QAM * Bolus insulin * NovoLog per scale ACHS or Q6hrs while NPO * Goal Range: Low 110 mg/dL - High 150 mg/dL * Correction Factor: 12mg/dL/unit AC and 15mg/dL/unit HS * Nutritional / Prandial insulin per carb ratio of 1 unit per 3 grams CHO consumed AC and 1 units per 4grams CHO consumed at HS.
[2024-02-04] MEDS: INSULIN ASPART PER UNIT CHARGE SC SCH ×2 (18:35→20:50)
[2024-02-04] MEDS: MAGNESIUM OXIDE 400 MG TAB PO SCH (18:36)
[2024-02-05 07:45] VITALS: PULSE 96; RESP 20; TEMP 98.1; O2SAT 94
[2024-02-05 10:13] VITALS: BP 138/78
--- NOTE | 2024-02-05 16:28 | Discharge Summary ---
Discharge Summary Date of Service February 05, 2024 Principal Dx & Hospital Course #1 = Principal Diagnosis (1) Drowsiness: metabolic encephalopathy significantly drowsy improved with reduction of medications and reinforcement of noninvasive positive pressure ventilation use even with napping. Suspected the fluconazole was causing increased levels of Xanax and Seroquel as they do interact Decreased Seroquel to 100mg hs x 2 nights and then held completely x 2 nights--> now c/o significant insomnia--resume Seroquel 50mg hs use xanax at home to help anxiety cautiously (2) History of pulmonary embolism: rectal bleeding while being anticoagulated, , previous VTE assocoated with recurrent malignancy with history of both ovarian ca and multiple myeloma s/p stem cell transplant, high risk for recurrence but with current anemia and presistent bleeding acute blood loss anemia, pt has refused endoscopy (3) Acute and chronic respiratory failure with hypoxia: ongoing smoking, COPD, and heart failure preserved ejection fraction Is now weaned off O2 to room air and no further respiratory distress oral prednisone 5mg with attempts at outpt taper prehospital Counseled on smoking cessation Continue Trilogy AVAPS every night and with now for obesity hypoventilation syndrome ABG 01/19 7.41/57/73 on 3LNC, chronic hypercapnia (4) DM II (diabetes mellitus, type II), controlled: With ongoing hyperglycemia which is now improving but not yet at goal councelled at dietary discression last A1C 9.6% in 09/2023 and now down to 8.3% (5) Heart failure with preserved ejection fraction: Acute on chronic HFpEF, with increased LE edema now slightly improved with IV Bumex She traditionally cannot follow a fluid restriction at home but does try to follow low sodium diet Does have a venous stasis component and sits in chair with legs dangling all day long persistent mild hyponatremia . hypomagnesemia, currently bumex 2 mg am and spironolactone 25 (6) Generalized anxiety disorder: Her Celexa dose was recently increased to 20mg-having significant drowsiness which may have been due to interaction of Seroquel and Xanax with fluconazole - lowered dose for now to 10mg Resume Seroquel at only 50mg qhs (7) Thrush of mouth and esophagus: resolved Plan History of multiple myeloma status post stem cell transplant 2014, and ovarian cancer 32 years ago, has some lytic bone lesions in rib and femur, pt is reluctant to have further work up here and wants to return to [facility] History of gout with recent flares continues on allopurinol stopped cplchicine refusing home health service Admission HPI Per Admitting Provider The patient is a 63-year-old female with a past medical history including recurrent admissions for COPD exacerbation and CHF, diabetes mellitus type 2, acute on chronic respiratory failure with hypoxia, gout, multiple myeloma, diabetes mellitus, generalized anxiety disorder, tobacco abuse, history of PE, obesity hypoventilation syndrome, on chronic anticoagulation with Lovenox. She presents to the emergency department with main complaint of significant difficulty with swallowing, and some mild worsening of her chronic shortness of breath. She had been seen earlier in the day in the emergency department, and was sent home, but reported worsening of her symptoms as the day progressed. Discharge Exam stable respiratory status legs 1+ edema with chronic venous stasis changes Discharge Plan Discharge Items Patient Disposition: Home - Home Health Services Reason For Visit: COPD EX, THRUSH, MICHELA ESOPHAGITIS Discharge Diagnosis: metabolic encephalopathy due to medication interaction chronic venous stasis dermatitis thrush copd anemia Activity: Resume your previous activity Non-emergency contact: Primary Care Provider and Oncologist Call non-emergency contact if: your symptoms worsen Follow-up/Referrals: Radha Barboza PA-C [Primary Care Provider] - 02/15/24 9:40 am Diet: Low Sodium (2gm) Fluids: 2000ml (8 cups) Addtl Attending Provider Instructions: It is very important that you start to take better care of youself no smoking at all keep your daily fluid intake to 2 liters or about 2 quarts of fluids a day do not eat salty or salt containing foods weigh yourself daily and record, bring this to your primary care office visit your medications have been adjusted if you keep on track you may be stable at home one these doses, we are not aiming to get your swelling to be completely resolved at the moment, just managed, then once you have been stable for a period of time we can work on the swelling more. follow up with local oncology Addtl Development Consultant Provider Instructions: Call 911 and go to the Emergency Room if: * You have tightness or pain in your chest that does not go away with rest or Nitroglycerin * You are very short of breath even with rest Call your doctor if any of the following symptoms or problems start or get worse: * Shortness of breath or difficulty breathing * Wake up at night short of breath * Chest pain * Cough * Swelling of your hands, fee, or legs * More fatigued or tired with your normal activity * Palpitations - sudden fast heart beats WEIGHT * Weigh yourself every morning after using the bathroom. * Use the same scale. * Wear the same amount of clothing. * Write your weight down on your chart. * Call your doctor if you gain more than 2-3 pounds in 1-2 days. MEDICATIONS * Use this discharge instruction sheet for instructions. * Take your medications at the time your doctor ordered. * Do not skip a dose of your medicines. * If you miss a dose of medicine, take as soon as possible, but DO NOT DOUBLE A DOSE. * Read your medicine information when you get home. * Know all of the side effects of your medicine. * Call your doctor's office if you have any side effects. * Be sure all of your doctors know what medicine and herbs you take (including cold, flu, and herbal medicine). * Pain Medicine: If you do not get relief from your pain, please call your doctor for help. Take the following with you to your follow-up doctor appointments: * Weight Chart * Medication List * List of questions Do not drink excessive alcohol, beer or wine. Pending Studies at Discharge: No Stand-Alone Forms: [facility], Smoking Cessation Medications and DC Order Prescriptions: Continued ondansetron HCl 4 mg Tablet 4 mg PO Q8H PRN (Reason: NAUSEA/VOMITING) nystatin 100,000 unit/gram Powder 1 applic TOPICAL BID PRN (Reason: UNDER BREASTS NEEDED.) buprenorphine-naloxone 8-2 mg film 0.5 film sublingual BID levalbuterol HCl 1.25 mg/3 mL solution for nebulization 1.25 mg INHALATION TID PRN (Reason: Shortness Of Breath Or Wheezing) albuterol sulfate 90 mcg/actuation HFA aerosol inhaler 2 puff INHALATION UD PRN (Reason: Shortness Of Breath Or Wheezing) ipratropium bromide 0.02 % solution 3 ml continuous nebulization QID PRN (Reason: shortness of breath) Qty: 75 0RF insulin glargine 100 unit/mL (3 mL) insulin pen 68 unit SUBCUT QAM Qty: 15 0RF calcium polycarbophil [Fiber (calcium polycarbophil)] 625 mg Tablet 625 mg PO QAM Qty: 30 0RF Rx Instructions: Over the counter prednisone 5 mg tablet 5 mg PO DIRECTED Qty: 45 0RF Rx Instructions: continue 5 mg daily for 30 days then 2.5 mg (half tab) daily guaifenesin [Mucinex] 600 mg tablet extended release 12hr 600 mg PO Q12 Rx Instructions: OTC fluticasone propionate [Flonase Allergy Relief] 50 mcg/actuation spray,suspension 1 spray intranasal BID Qty: 0 0RF Rx Instructions: administer into each nostril Trelegy Ellipta 200-62.5-25 mcg blister with device 1 ea INHALATION QAM Qty: 60 0RF levalbuterol tartrate 45 mcg/actuation HFA aerosol inhaler 2 puff INHALATION Q4 PRN (Reason: WHEEZE) Qty: 15 0RF insulin aspart U-100 [Novolog FlexPen U-100 Insulin] 100 unit/mL (3 mL) insulin pen 0 unit subcut TIDM Ozempic Inj 0.25 mg INJ WK allopurinol 100 mg tablet 300 mg PO QAM spironolactone 25 mg Tablet 25 mg PO QAM Qty: 30 0RF potassium chloride 20 mEq Tablet,Er Particles/Crystals 40 meq PO QAM Qty: 60 0RF citalopram 20 mg Tablet 20 mg PO HS Qty: 30 0RF ascorbic acid (vitamin C) [Vitamin C] 500 mg Tablet 1,000 mg PO DAILY Qty: 60 0RF colchicine 0.6 mg capsule 0.6 mg PO DAILY Qty: 30 0RF Changed bumetanide 2 mg tablet 2 mg PO DAILY Qty: 60 0RF Rx Instructions: morning and lunch quetiapine 200 mg tablet 100 mg PO HS Qty: 0 0RF alprazolam 0.5 mg tablet 0.5 mg PO BID Qty: 14 0RF Rx Instructions: pt requesting to take same time as suboxone Discontinued enoxaparin 150 mg/mL syringe 150 mg subcut UD Rx Instructions: Dr is trying to change this colchicine [Colcrys] 0.6 mg Tablet 0.6 mg PO BID PRN (Reason: gout attacks) Qty: 60 0RF Rx Instructions: Take 1.2mg po x 1 followed by 0.6mg po bid x 3 days prednisone 10 mg tablet 10 mg PO DIRECTED Qty: 14 0RF Rx Instructions: see taper instructions 3 tablets on 12/26 followed by 2 tablets for 5 days, 1 tablet for 5 days, then stop. Discharge Orders: Discharge Order (Routine); Ordered 02/05/24 Ordered By: Kaiden Barbour/Other Patient Handouts: Discharge Instructions: COPD, COPD Controlled Breathing Dc, ED Esophagitis, Michela Admission Data Admit Date/Time: 01/17/24 21:26 Attending Provider: Kaiden Calabrese Admit Provider: Casey Aguilar Primary Care Provider: Radha Barboza Other Providers: Casey Aguilar; Christianne Angel; Nati Villa; [facility]; Roseanna Olson Other Interventions: Discharge Summary Assessment (RN) Last Done: 02/05/24 10:11 Hospital Stay Data Consultations 01/17/24 20:11 ED Decision to Admit Stat 01/28/24 10:28 Consult Gastroenterology Routine 01/29/24 12:17 Consult Palliative Care Routine 02/01/24 12:34 Consult Pulmonology Routine 02/02/24 13:44 Consult Behavioral Health Liaison Routine Diagnostic Imagining Performed 01/28/24 10:32 CT Abd and Pelvis [CT abd pelvis oral con only] Routine Pending Results Patient Have Any Pending Studies at Discharge: No Discharge Instructions Given to Patient (Per Discharging Provider) It is very important that you start to take better care of youself no smoking at all keep your daily fluid intake to 2 liters or about 2 quarts of fluids a day do not eat salty or salt containing foods weigh yourself daily and record, bring this to your primary care office visit your medications have been adjusted if you keep on track you may be stable at home one these doses, we are not aiming to get your swelling to be completely resolved at the moment, just managed, then once you have been stable for a period of time we can work on the swelling more. follow up with local oncology Total Time Total Time Spent Total Time Spent (In Minutes): It required greater than 30 minutes to prepare this patient for discharge. Coding Level of Care Code 23499 INP/OBS DISCH >30 MIN Diagnoses Drowsiness R40.0 History of pulmonary embolism Z86.711 Acute and chronic respiratory failure with hypoxia J96.21 DM II (diabetes mellitus, type II), controlled E11.9 Chronic heart failure with preserved ejection fraction I50.32 Heart failure chronicity: chronic Generalized anxiety disorder F41.1 Thrush of mouth and esophagus B37.81; B37.0
== END 2024-02-05 10:53 | disposition home health service (06) | DRG 189 ==
LOC: ED 18:24 → SUATTDRO 21:26 → 1E 21:26 → 2S 01-19 22:08 → 3W 01-23 17:55

== ENCOUNTER 2024-02-19 16:35 | Inpatient (IN) ==
--- NOTE | 2024-02-19 17:39 | Emergency Department Note ---
Impression & Plan Bilateral edema of lower extremity, Cellulitis, Elevated troponin, Failure of outpatient treatment, Pulmonary edema ED Provider Note ED Provider Note NAME: LIANNE SAMUEL AGE:63 SEX: Female : 1960 ARRIVES VIA: Private vehicle INFORMANT: Patient ED PROVIDER(s): Zoila Dunlap DO CHIEF COMPLAINT: Referred by PCP, increased lower extremity edema HPI: This is a 63-year-old female who presents emergency department after being referred here by her PCP due to increased lower extremity edema. Patient was seen in the clinic earlier in the week and her Bumex dosing was increased. She continues to have worsening lower extremity edema despite this change. Patient has also been using her CPAP at home during the day instead of just at night. She does feel slightly more winded with any exertion. She denies fevers or chills or other URI symptoms. She does have a history of COPD. She states 1 area to the right lower extremity had been weeping due to the increased swelling which goes up to her knees bilaterally. She denies chest pain or abdominal pain. PAST MEDICAL HISTORY:See Below PAST SURGICAL HISTORY:See Below FAMILY HISTORY:See Below SOCIAL HISTORY:See Below HOME MEDICATIONS:See Below ALLERGIES:See Below VITALS:See Below PHYSICAL EXAMINATION: GENERAL: alert, well appearing, well nourished, no distress, non-toxic EYE EXAM: normal conjunctiva, PERRL and EOM's grossly intact OROPHARYNX: no exudate, no erythema, lips, buccal mucosa, and tongue normal and mucous membranes are moist NECK: supple, no nuchal rigidity, no adenopathy, non-tender LUNGS: Decreased bilaterally to auscultation. Normal chest wall mechanics, no w/r/r HEART: no murmurs, S1 normal and S2 normal ABDOMEN: abdomen soft, non-tender, normo-active bowel sounds, no masses, no rebound or guarding. BACK: Back is symmetrical on inspection and there is no deformity, no midline tenderness, no CVA tenderness. SKIN: no rashes, petechiae, orbruising UPPER EXTREMITIES: upper extremities are grossly normal. FROM, nml pulses b/l. LOWER EXTREMITIES: 2+ bilateral pitting edema up to the knees. FROM, nml pulses b/l. Overlying erythema with an area anteriorly of weeping to the right lower extremity with increased warmth suggestive of evolving cellulitis. NEURO EXAM: Normal sensorium, cranial nerves II-XII grossly intact, normal speech, no facial droop,nogross weakness of arms, no gross weakness of legs. Gross sensation intact. No ataxia. Vital Signs: reviewed and remarkable Differential Diagnosis: CHF, lymphedema, failed outpatient treatment, cellulitis, DVT, medication ADR, as well as others were considered MEDICAL DECISION MAKING: This is a 63-year-old female who presents emergency department after being referred here from her PCPs office due to concern for failed outpatient management of worsening lower extremity edema. Patient with a history of lower extremity edema and CHF. Does take Bumex daily which was recently increased. She did follow-up with her PCP again today in the office and despite increased dosing that she started the beginning of the week her lower extremity edema was worse. On arrival here patient was afebrile and vital signs stable. She did few more comfortable wearing oxygen although was not overtly hypoxic. She was also noted to have findings suggestive of evolving cellulitis to the right lower extremity. Labs drawn and sent, IV established, EKG and chest ray performed at bedside interpreted by me and patient monitored on telemetry. A dose of IV Bumex was added as well as oral doxycycline to cover for cellulitis versus possible pulmonary infection given chest x-ray findings. No reported history of MRSA. Patient is a diabetic. Patient was noted to have a leukocytosis of 16 however procalcitonin reassuring. Patient noted to have an elevated BNP consistent with findings as well as an elevated troponin which I feel is secondary to increased demand and even possibly concurrent infection. Patient updated on all results and plan, verbalized understanding and was in agreement. Case discussed with the hospitalist team for additional evaluation and management. Consultation(s): 193: Discussed with ROJELIO Gilbert hospitalist team for additional evaluation and mgmt. ER Treatment Provided: See below Diagnostics Interpreted By Me: -ECG: Normal sinus at 92, normal axis, normal intervals, no acute ST/T wave changes -Cardiac Monitoring: An order was placed for continuous cardiac monitoring. The monitor shows a rate of 88 with normal sinus rhythm. -Laboratory studies: As stated above and show below. -Imaging studies: cxr: Cardiomegaly noted, increased interstitial markings bilaterally, worse on the right than left, no pleural effusions, no wide mediastinum Triage Nursing Note Reviewed Prior/Outside Records Reviewed Past Med/Surg History Problem List (Updated 02/19/24 @ 21:14 by Zoila Dunlap DO) Pulmonary edema (Acute) Failure of outpatient treatment (Acute) Elevated troponin (Acute) Cellulitis (Acute) Bilateral edema of lower extremity (Acute) COPD exacerbation (Acute) Dyspnea D-dimer, elevated (Acute) Palpitations (Acute) Chest pain (Acute) Bilateral knee pain CHF exacerbation (Acute) COPD exacerbation (Acute) Chest pain Right knee pain Elevated troponin (Acute) Acute exacerbation of chronic obstructive pulmonary disease (Acute) Leukocytosis (Acute) Acute hypokalemia (Acute) Diabetes Hypokalemia Tobacco abuse counseling Moderate persistent asthma Constipation Acute bronchitis Pulmonary vascular congestion Medical History Tobacco use disorder Hematochezia History of pulmonary embolism Michela esophagitis DM II (diabetes mellitus, type II), controlled Acute and chronic respiratory failure with hypoxia Gout Generalized anxiety disorder Heart failure with preserved ejection fraction Chronic anticoagulation Obesity hypoventilation syndrome COPD (chronic obstructive pulmonary disease) Multiple myeloma Last chemotherapy 2016 Follows with medical oncology in [facility] History of pulmonary embolism Acute exacerbation of chronic obstructive pulmonary disease Acute heart failure with preserved ejection fraction (HFpEF) Acute exacerbation of chronic obstructive pulmonary disease Tobacco abuse Opiate dependence Asthma Surgical History No pertinent past surgical history Family History Sister Asthma Social History Smoking Status: Current every day smoker Tobacco Type: Cigarettes Cigarettes Per Day: 1 cigarette per day; Second Hand Exposure: No; Do You Dip or Chew Tobacco: No; Hx Alcohol Use: No Hx Substance Use: No Preferred Language: Togolese Communication Ability: Effective [employer]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 Beliefs That Will Affect Care: None Current Living Situation: Alone Current Living Situation Comment: lives with sister temporarily Feels Safe at Home: Yes Assistive Devices: Oxygen - at Night and Other Allergies Allergies Allergy/AdvReac Type Severity Reaction Status Date / Time codeine Allergy Severe Anaphylaxis Verified 11/14/23 01:37 Iodinated Contrast Media Allergy Severe Anaphylaxis Verified 11/14/23 01:37 shellfish derived Allergy Severe Anaphylaxis Verified 11/14/23 01:37 tramadol Allergy Intermediate ITCHINESS Verified 11/14/23 01:37 iohexol Allergy Unknown CAN'T Verified 11/14/23 01:37 REMEMBER diphenhydramine AdvReac Severe Anxiety Verified 11/14/23 01:37 [From Benadryl] promethazine AdvReac Intermediate Anxiety Verified 11/14/23 01:37 Home Meds Home Medications Medication Instructions Recorded Confirmed buprenorphine 8 mg-naloxone 2 mg 0.5 film sublingual BID 05/14/22 12/13/23 sublingual film nystatin 100,000 unit/gram topical 1 applic topical BID PRN UNDER 05/14/22 12/13/23 powder BREASTS NEEDED. ondansetron HCl 4 mg tablet 4 mg PO Q8H PRN NAUSEA/VOMITING 05/14/22 12/13/23 levalbuterol HCl 1.25 mg/3 mL 1.25 mg inhalation TID PRN 01/16/23 12/13/23 solution for nebulization Shortness Of Breath Or Wheezing albuterol sulfate 90 mcg/actuation 2 puff inhalation UD PRN Shortness 08/30/23 12/13/23 aerosol inhaler Of Breath Or Wheezing guaifenesin 600 mg tablet, 600 mg PO Q12 Congestion 09/11/23 12/13/23 extended release 12 hr (Mucinex) Ozempic Inj 0.25 mg INJ WK 11/07/23 12/13/23 insulin aspart U-100 100 unit/mL 0 unit subcut TIDM 11/07/23 12/13/23 (3 mL) subcutaneous pen (Novolog FlexPen U-100 Insulin aspart) allopurinol 100 mg tablet 300 mg PO QAM 12/13/23 12/13/23 Previous Rx's Medication Instructions Recorded fluticasone propionate 50 1 spray intranasal BID nasal 09/15/23 mcg/actuation nasal congestion #0 mL spray,suspension (Flonase Allergy Relief) fluticasone fur. 200 mcg-umeclid 1 ea inhalation QAM #60 ea 09/16/23 62.5 mcg-vilant 25 mcg inhalat.powder (Trelegy Ellipta) levalbuterol tartrate 45 2 puff inhalation Q4 PRN WHEEZE 09/16/23 mcg/actuation aerosol inhaler #15 grams insulin glargine 100 unit/mL (3 68 unit (0.68 mL) subcut QAM #15 mL 10/17/23 mL) subcutaneous pen ipratropium bromide 0.02 % 3 ml continuous nebulization QID 10/17/23 solution for inhalation PRN shortness of breath #75 mL calcium polycarbophil 625 mg 625 mg PO QAM #30 tabs 10/30/23 tablet (Fiber (calcium polycarbophil)) potassium chloride 20 mEq 40 meq (2 x 20 mEq) PO QAM #60 tabs 12/25/23 tablet,extended release(part/cryst) spironolactone 25 mg tablet 25 mg PO QAM #30 tabs 12/25/23 ascorbic acid (vitamin C) 500 mg 1,000 mg (2 x 500 mg) PO DAILY #60 01/02/24 tablet (Vitamin C) tabs citalopram 20 mg tablet 20 mg PO HS #30 tabs 01/02/24 colchicine 0.6 mg capsule 0.6 mg PO DAILY #30 caps 01/02/24 alprazolam 0.5 mg tablet 0.5 mg PO BID #14 tabs 02/05/24 bumetanide 2 mg tablet 2 mg PO DAILY #60 tabs 02/05/24 prednisone 5 mg tablet 5 mg PO DIRECTED #45 tabs 02/05/24 quetiapine 200 mg tablet 100 mg (1/2 x 200 mg) PO HS #0 tabs 02/05/24 Results & Data (ED) Vital Signs Vital Signs - 24 hr 02/19/24 16:37 02/19/24 16:52 02/19/24 17:00 Temperature 36.8 C Temperature Source Temporal Artery Scan Pulse Rate 106 H Pulse Rate [Apical] 99 H Respiratory Rate 26 H 16 Respiratory Effort / Characteristics Short of Breath Respiratory Pattern Tachypnea Blood Pressure 155/78 H Blood Pressure [Left Arm] 130/80 Blood Pressure Mean 103 Blood Pressure Mean [Left Arm] 96 Pulse Oximetry 96 91 87 L Oxygen Delivery Method Room Air Room Air Room Air Oxygen Flow Rate Sepsis Recent Fever Within 48 Hours No Sepsis New/Unexplained Change in Mental Status No Sepsis Action Taken by Nursing No Action Required 02/19/24 17:02 02/19/24 17:13 02/19/24 19:00 Temperature Temperature Source Pulse Rate 96 H Pulse Rate [Apical] 86 Respiratory Rate 16 Respiratory Effort / Characteristics Non-Labored Respiratory Pattern Blood Pressure Blood Pressure [Left Arm] 133/88 Blood Pressure Mean Blood Pressure Mean [Left Arm] 103 Pulse Oximetry 92 100 Oxygen Delivery Method Nasal Cannula Nasal Cannula Oxygen Flow Rate 2 2 Sepsis Recent Fever Within 48 Hours Sepsis New/Unexplained Change in Mental Status Sepsis Action Taken by Nursing Laboratory Data 02/19/24 17:04 02/19/24 17:04 Lab Results 02/19/24 Range/Units 17:04 WBC 16.31 H (4.8-10.8) K/ul RBC 3.98 L (4.20-5.40) M/uL Hgb 10.0 L (12.0-16.0) g/dl Hct 32.9 L (37.0-47.0) % MCV 82.7 (80.0-100.0) fL MCH 25.1 (25.0-34.0) pg MCHC 30.4 L (32.0-36.0) g/dL RDW Std Deviation 53.6 H (36.4-46.3) fL RDW Coeff of Malick 18.0 H (11.5-14.5) % Plt Count 507 H (130-400) K/uL MPV 9.9 (9.4-12.4) fL Immature Gran % (Auto) 1.1 % Neut % (Auto) 89.1 % Lymph % (Auto) 7.1 % [place] % (Auto) 2.5 % Eos % (Auto) 0.0 % Baso % (Auto) 0.2 % Neut # (Auto) 14.53 H (1.40-6.50) K/uL Lymph # (Auto) 1.15 L (1.20-3.40) K/uL [place] # (Auto) 0.41 (0.11-0.59) K/uL Eos # (Auto) 0.00 (0.00-0.50) K/uL Baso # (Auto) 0.04 (0.00-0.20) K/uL Immature Gran # (Auto) 0.18 (0.01-0.20) K/uL PT 11.0 (9.0-12.0) Seconds INR 1.0 (0.9-1.1) Sodium 137 (136-145) mmol/L Potassium 4.3 (3.5-5.1) mmol/L Chloride 96 L (98-107) mmol/L Carbon Dioxide 31 (21-32) mmol/L Anion Gap 10 (3-11) BUN 23 (6-23) mg/dl Creatinine 0.95 (0.6-1.2) mg/dl Est Cr Clr Drug Dosing 66.2 ml/min eGFR 67.74 BUN/Creatinine Ratio 24.2 H (10-20) Glucose 158 H (70-99(Fasting)) mg/dl Calcium 9.5 (8.6-10.3) mg/dl Total Bilirubin 0.3 (0.2-1.0) mg/dl AST 14 (13-39) U/L ALT 20 (7-52) U/L Alkaline Phosphatase 93 (34-104) U/L Troponin I High Sens 16.1 H (0-14) pg/ml B-Natriuretic Peptide 239 H (0-100) pg/ml Total Protein 6.8 (6.0-8.3) gm/dl Albumin 4.0 (3.4-5.0) gm/dl Globulin 2.8 (2.5-4.0) gm/dl Albumin/Globulin Ratio 1.4 (0.9-2) Procalcitonin 0.07 (0-0.5) ng/ml Administered Medications Discontinued Medications Doxycycline Hyclate (Doxycycline Hyclate 100 Mg Cap) 100 mg PO NOW STA Stop: 02/19/24 19:20 Last Admin: 02/19/24 19:40 Dose: 100 mg Documented By: RHEA Bumetanide 2 mg/ Syringe 8 mls @ 4 mls/min IV ONE ONE Stop: 02/19/24 18:58 Last Admin: 02/19/24 19:40 Dose: 4 mls/min Documented By: RHEA Imaging Data Radiologist's Impression: Chest X-Ray 02/19/24 17:40 XR chest 1V portable CLINICAL HISTORY: incr LE edema, hx CHF COMPARISON STUDY: Chest radiograph February 12, 2024. Chest CT September 30, 2023. CT of the abdomen and pelvis January 28, 2024. FINDINGS: An expansile anterior right fourth rib lesion is again noted. There is no pneumothorax or pleural effusion. Mild enlargement of the cardiac silhouette and pulmonary vascular congestion is unchanged. Lower lung irregular densities are present. IMPRESSION: 1. Cardiomegaly with pulmonary vascular congestion, similar to prior exam. 2. Lower lung densities which favor atelectasis when correlating with abdominal CT of January 28, 2024. Infectious process is considered less likely. Radiographic follow-up is recommended. ACT 112: Negative or not required by law. Electronically signed by: Hipolito Sevilla M.D. 02/19/2024 6:54 PM Discharge Plan Visit Data Chief Complaint: Swelling/Edema to Extremity Stated Complaint: SEEPING, ANKLES SWELLED, COPD, CONGESTIVE HEART ED Provider: Zoila Dunlap Discharge Problem: Bilateral edema of lower extremity, Cellulitis, Elevated troponin, Failure of outpatient treatment, Pulmonary edema Forms Stand Alone Forms: My [facility] [email or web address] Prescriptions Prescriptions: No Action ondansetron HCl 4 mg Tablet 4 mg PO Q8H PRN (Reason: NAUSEA/VOMITING) nystatin 100,000 unit/gram Powder 1 applic TOPICAL BID PRN (Reason: UNDER BREASTS NEEDED.) buprenorphine-naloxone 8-2 mg film 0.5 film sublingual BID levalbuterol HCl 1.25 mg/3 mL solution for nebulization 1.25 mg INHALATION TID PRN (Reason: Shortness Of Breath Or Wheezing) albuterol sulfate 90 mcg/actuation HFA aerosol inhaler 2 puff INHALATION UD PRN (Reason: Shortness Of Breath Or Wheezing) ipratropium bromide 0.02 % solution 3 ml continuous nebulization QID PRN (Reason: shortness of breath) Qty: 75 0RF insulin glargine 100 unit/mL (3 mL) insulin pen 68 unit SUBCUT QAM Qty: 15 0RF calcium polycarbophil [Fiber (calcium polycarbophil)] 625 mg Tablet 625 mg PO QAM Qty: 30 0RF Rx Instructions: Over the counter bumetanide 2 mg tablet 2 mg PO DAILY Qty: 60 0RF Rx Instructions: morning and lunch prednisone 5 mg tablet 5 mg PO DIRECTED Qty: 45 0RF Rx Instructions: continue 5 mg daily for 30 days then 2.5 mg (half tab) daily quetiapine 200 mg tablet 100 mg PO HS Qty: 0 0RF alprazolam 0.5 mg tablet 0.5 mg PO BID Qty: 14 0RF Rx Instructions: pt requesting to take same time as suboxone guaifenesin [Mucinex] 600 mg tablet extended release 12hr 600 mg PO Q12 Rx Instructions: OTC fluticasone propionate [Flonase Allergy Relief] 50 mcg/actuation spray,suspension 1 spray intranasal BID Qty: 0 0RF Rx Instructions: administer into each nostril Trelegy Ellipta 200-62.5-25 mcg blister with device 1 ea INHALATION QAM Qty: 60 0RF levalbuterol tartrate 45 mcg/actuation HFA aerosol inhaler 2 puff INHALATION Q4 PRN (Reason: WHEEZE) Qty: 15 0RF insulin aspart U-100 [Novolog FlexPen U-100 Insulin] 100 unit/mL (3 mL) insulin pen 0 unit subcut TIDM Ozempic Inj 0.25 mg INJ WK allopurinol 100 mg tablet 300 mg PO QAM spironolactone 25 mg Tablet 25 mg PO QAM Qty: 30 0RF potassium chloride 20 mEq Tablet,Er Particles/Crystals 40 meq PO QAM Qty: 60 0RF citalopram 20 mg Tablet 20 mg PO HS Qty: 30 0RF ascorbic acid (vitamin C) [Vitamin C] 500 mg Tablet 1,000 mg PO DAILY Qty: 60 0RF colchicine 0.6 mg capsule 0.6 mg PO DAILY Qty: 30 0RF Referrals Referrals: Radha Barboza PA-C [Primary Care Provider] - Discharge Problem: Cellulitis Qualifiers: Site of cellulitis of extremity: lower extremity Laterality: right
[2024-02-19 18:06] LABS: Basophils # (auto) 0.04 K/uL (0.00-0.20); Basophils % (auto) 0.2 %; Hematocrit (blood only) 32.9 % (37.0-47.0); Immature Granulocytes # (auto) 0.18 K/uL (0.01-0.20); Immature Granulocytes % (auto) 1.1 %; Lymphocytes # (auto) 1.15 K/uL (1.20-3.40); Lymphocytes % (auto) 7.1 %; Mean Corpuscular Hemoglobin 25.1 pg (25.0-34.0); Mean Corpuscular Hgb Conc 30.4 g/dL (32.0-36.0); Mean Corpuscular Volume 82.7 fL (80.0-100.0); Mean Platelet Volume 9.9 fL (9.4-12.4); Monocytes # (auto) 0.41 K/uL (0.11-0.59); Monocytes % (auto) 2.5 %; Neutrophils # (auto) 14.53 K/uL (1.40-6.50); Neutrophils % (auto) 89.1 %; Platelet Count 507 K/uL (130-400); RDW Standard Deviation 53.6 fL (36.4-46.3); Red Blood Count 3.98 M/uL (4.20-5.40); White Blood Count 16.31 K/ul (4.8-10.8)
[2024-02-19 18:19] LABS: Albumin Globulin Ratio 1.4 (0.9-2); BUN Creatinine Ratio 24.2 (10-20); Bilirubin,Total 0.3 mg/dl (0.2-1.0); Calcium 9.5 mg/dl (8.6-10.3); Creatinine Clr Calc Pharmacy 66.2 ml/min; Globulin 2.8 gm/dl (2.5-4.0); Potassium 4.3 mmol/L (3.5-5.1); Total Protein 6.8 gm/dl (6.0-8.3)
[2024-02-19 18:25] LABS: Troponin I High Sensitivity 16.1 pg/ml (0-14)
--- NOTE | 2024-02-19 18:55 | XRay Report ---
XR chest 1V portable CLINICAL HISTORY: incr LE edema, hx CHF COMPARISON STUDY: Chest radiograph February 12, 2024. Chest CT September 30, 2023. CT of the abdomen and pe lvis January 28, 2024. FINDINGS: An expansile anterior right fourth rib lesion is again noted. There is no pneumothorax or p leural effusion. Mild enlargement of the cardiac silhouette and pulmonary vascular congestion is unch anged. Lower lung irregular densities are present. IMPRESSION: 1. Cardiomegaly with pulmonary vascular congestion, similar to prior exam. 2. Lower lung densities which favor atelectasis when correlating with abdominal CT of January 28, 2024 . Infectious process is considered less likely. Radiographic follow-up is recommended. ACT 112: Negative or not required by law. Electronically signed by: Hipolito Sevilla M.D. 02/19/2024 6:54 PM
[2024-02-19] MEDS: DOXYCYCLINE HYCLATE 100 MG CAP PO STA (19:40)
[2024-02-19] MEDS: BUMETANIDE 2 MG in SYRINGE 0 ML IV ONE (19:40)
--- NOTE | 2024-02-19 20:43 | History & Physical Report ---
Date of Service February 19, 2024 Assessment & Plan (1) Heart failure with preserved ejection fraction: (2) Bilateral edema of lower extremity: (3) Cellulitis: (4) DM II (diabetes mellitus, type II), controlled: (5) COPD (chronic obstructive pulmonary disease): (6) History of pulmonary embolism: (7) Tobacco use disorder: Plan 63 y/o female presenting with volume overload in the setting of CHF, as well as possible RLE cellulitis. 1) Acute exacerbation of HFpEF with BNP of 239. -Will monitor on tele -TILE PRESSER -Daily weights and I/O -Patient on Bumex at home, recently increased in clinic. Currently 2 mg PO daily. Received 2 mg IV in ER, will continue 2 mg IV daily for now, titrate as appropriate for diuresis -Continue 25 mg Spironolactone IV daily -Patient had echo performed in 07/2023; will not repeat at this time unless significant change in patient condition -Cardiology consult if needed 2) RLE redness -- concern for cellulitis, but given hx also concern for DVT -Will get RLE venous duplex to r/o new DVT -Obtain BCx -Patient received Doxycycline PO in ER, but will switch to IV Ceftriaxone for now; if no evidence of infection, this can be d/c'ed -- 3) COPD -- stable, not acute exacerbation (chronic hypoxic resp failure) -TILE PRESSER -Continue Trelegy qAM pre home dose -Continue Levalbuterol and Atrovent q6h PRN for SOB -Patient has been on prednisone, and at last d/c from hospital 2 weeks ago dose changed to 5 mg daily; will continue this for now with goal to wean off 4) DM2 -DM diet -Accuchek ACHS with SSI -Per last progress note from prior hospitalization, Lantus was down to 65. She is generally on 68 per other lists. Will have on 65 U daily for now until dosing clarified -On Ozempic weekly per medication list -A1C performed on last hosp, now 8.3% 5) Generalized anxiety disorder/mood disorder -- doses adjusted last admission due to drowsiness/confusion -Cont Seroquel 50 mg qhs -Cont Celexa 10 mg daily -Xanax 0.5 PO BID PRN 6) Gout -- colchicine recently stopped. Has had flares recently, but not currently. -Patient on allopurinol only, continue 300 mg qdaily 7) Opioid use disorder -Continue Buprenorphine/Naloxone 8-2 mg 0.5 film BID 8) DVT PPx -- if no DVT in RLE, can consider SCDs. Given recent GIB, would avoid anticoagulants if possible 9) Code status -- full code History of Present Illness Chief Complaint: SOB, LE edema; RLE redness Primary Care Provider: Radha Barboza This is a 63-year-old female with an extensive medical history including heart failure with preserved ejection fraction, COPD, diabetes type 2, prior DVT/PE (currently not on any anticoagulation due to recent GI bleed), tobacco use disorder (currently still smoking 4 to 5 cigarettes daily), history of opioid use disorder, gout, anxiety/depression, and obesity hypoventilation syndrome (on CPAP) who comes into the ER from clinic with worsening lower extremity edema and increased shortness of breath. Patient's recent history is notable for admission here from 01/16 to 02/04 for multiple issues including metabolic encephalopathy possibly due to overmedication, acute blood loss anemia, acute exacerbation of CHF, and acute exacerbation of COPD. Today patient says that she was seen in outpatient clinic by her PCP as follow-up after visit on Thursday when her Bumex was increased due to increased bilateral lower extremity edema. At the visit today, she was noted to have worsening lower extremity edema in spite of the increased dose of Bumex, and was also noted to have increased shortness of breath. She had reported she has been using her CPAP during the day as well as at night. She had also reported increased shortness of breath and dyspnea on exertion with any kind of exertion. When I saw the patient her the history she provided was consistent with the report from her clinic. She denies any other acute complaints otherwise. Denies any chest pain. Denies palpitations. Denies increased cough or productive cough. Denies fevers, chills, nausea, vomiting, diarrhea. She does note that with the increased swelling in her legs, there is some clear fluid weeping bilaterally. She also notes some increased redness of the right lower extremity, which is new. Allergies Allergy/AdvReac Type Severity Reaction Status Date / Time codeine Allergy Severe Anaphylaxis Verified 11/14/23 01:37 Iodinated Contrast Media Allergy Severe Anaphylaxis Verified 11/14/23 01:37 shellfish derived Allergy Severe Anaphylaxis Verified 11/14/23 01:37 tramadol Allergy Intermediate ITCHINESS Verified 11/14/23 01:37 iohexol Allergy Unknown CAN'T Verified 11/14/23 01:37 REMEMBER diphenhydramine AdvReac Severe Anxiety Verified 11/14/23 01:37 [From Benadryl] promethazine AdvReac Intermediate Anxiety Verified 11/14/23 01:37 Home Medications Medication Instructions Recorded Confirmed Type buprenorphine 8 mg-naloxone 2 mg 0.5 film sublingual BID 05/14/22 12/13/23 History sublingual film nystatin 100,000 unit/gram topical 1 applic topical BID PRN UNDER 05/14/22 12/13/23 History powder BREASTS NEEDED. ondansetron HCl 4 mg tablet 4 mg PO Q8H PRN NAUSEA/VOMITING 05/14/22 12/13/23 History levalbuterol HCl 1.25 mg/3 mL 1.25 mg inhalation TID PRN 01/16/23 12/13/23 History solution for nebulization Shortness Of Breath Or Wheezing albuterol sulfate 90 mcg/actuation 2 puff inhalation UD PRN Shortness 08/30/23 12/13/23 History aerosol inhaler Of Breath Or Wheezing guaifenesin 600 mg tablet, 600 mg PO Q12 Congestion 09/11/23 12/13/23 History extended release 12 hr (Mucinex) fluticasone propionate 50 1 spray intranasal BID nasal 09/15/23 12/13/23 Rx mcg/actuation nasal congestion #0 mL spray,suspension (Flonase Allergy Relief) fluticasone fur. 200 mcg-umeclid 1 ea inhalation QAM #60 ea 09/16/23 12/13/23 Rx 62.5 mcg-vilant 25 mcg inhalat.powder (Trelegy Ellipta) levalbuterol tartrate 45 2 puff inhalation Q4 PRN WHEEZE 09/16/23 12/13/23 Rx mcg/actuation aerosol inhaler #15 grams insulin glargine 100 unit/mL (3 68 unit (0.68 mL) subcut QAM #15 mL 10/17/23 12/13/23 Rx mL) subcutaneous pen ipratropium bromide 0.02 % 3 ml continuous nebulization QID 10/17/23 12/13/23 Rx solution for inhalation PRN shortness of breath #75 mL calcium polycarbophil 625 mg 625 mg PO QAM #30 tabs 10/30/23 12/13/23 Rx tablet (Fiber (calcium polycarbophil)) Ozempic Inj 0.25 mg INJ WK 11/07/23 12/13/23 History insulin aspart U-100 100 unit/mL 0 unit subcut TIDM 11/07/23 12/13/23 History (3 mL) subcutaneous pen (Novolog FlexPen U-100 Insulin aspart) allopurinol 100 mg tablet 300 mg PO QAM 12/13/23 12/13/23 History potassium chloride 20 mEq 40 meq (2 x 20 mEq) PO QAM #60 tabs 12/25/23 Rx tablet,extended release(part/cryst) spironolactone 25 mg tablet 25 mg PO QAM #30 tabs 12/25/23 Rx ascorbic acid (vitamin C) 500 mg 1,000 mg (2 x 500 mg) PO DAILY #60 01/02/24 Rx tablet (Vitamin C) tabs citalopram 20 mg tablet 20 mg PO HS #30 tabs 01/02/24 Rx colchicine 0.6 mg capsule 0.6 mg PO DAILY #30 caps 01/02/24 Rx alprazolam 0.5 mg tablet 0.5 mg PO BID #14 tabs 02/05/24 12/13/23 Rx bumetanide 2 mg tablet 2 mg PO DAILY #60 tabs 02/05/24 12/13/23 Rx prednisone 5 mg tablet 5 mg PO DIRECTED #45 tabs 02/05/24 Rx quetiapine 200 mg tablet 100 mg (1/2 x 200 mg) PO HS #0 tabs 02/05/24 12/13/23 Rx Past Med/Surg History Problem List (Updated 02/19/24 @ 20:30 by Jackson Dahl MD) Cellulitis (Acute) Bilateral edema of lower extremity (Acute) COPD exacerbation (Acute) Dyspnea D-dimer, elevated (Acute) Palpitations (Acute) Chest pain (Acute) Bilateral knee pain CHF exacerbation (Acute) COPD exacerbation (Acute) Chest pain Right knee pain Elevated troponin (Acute) Acute exacerbation of chronic obstructive pulmonary disease (Acute) Leukocytosis (Acute) Acute hypokalemia (Acute) Diabetes Hypokalemia Tobacco abuse counseling Moderate persistent asthma Constipation Acute bronchitis Pulmonary vascular congestion Medical History Tobacco use disorder Hematochezia History of pulmonary embolism Michela esophagitis DM II (diabetes mellitus, type II), controlled Acute and chronic respiratory failure with hypoxia Gout Generalized anxiety disorder Heart failure with preserved ejection fraction Chronic anticoagulation Obesity hypoventilation syndrome COPD (chronic obstructive pulmonary disease) Multiple myeloma Last chemotherapy 2017 Follows with medical oncology in [facility] History of pulmonary embolism Acute exacerbation of chronic obstructive pulmonary disease Acute heart failure with preserved ejection fraction (HFpEF) Acute exacerbation of chronic obstructive pulmonary disease Tobacco abuse Opiate dependence Asthma Surgical History No pertinent past surgical history Family History Sister Asthma Social History Smoking Status: Current every day smoker Tobacco Type: Cigarettes Cigarettes Per Day: 1 cigarette per day; Second Hand Exposure: No; Do You Dip or Chew Tobacco: No; Hx Alcohol Use: No Hx Substance Use: No Preferred Language: Palauan Communication Ability: Effective Line Camera Operator Required: No Beliefs That Will Affect Care: None Current Living Situation: Alone Current Living Situation Comment: lives with sister temporarily Feels Safe at Home: Yes Assistive Devices: Oxygen - at Night and Other Review of Systems Review of Systems: All systems reviewed & are unremarkable except as noted in HPI & below Constitutional: + weight gain; no fever and no chills Cardiovascular: + dyspnea at rest and + edema; no chest pain Integumentary: + erythema (RLE) Physical Exam Constitutional: + obese; no acute distress and not in di stress Eyes: PERRL, conjunctivae normal, anicteric sclerae ENMT: external ear and nose normal, oropharynx normal Neck: trachea midline, no thyromegaly Respiratory: normal respiratory effort and + cough; no respiratory distress and not tachypneic Auscultation: + crackles and + rhonchi Cardiovascular: Rate/Rhythm: regular rhythm and + tachycardic Heart Sounds: no gallop, no murmur and no cardiac rub Extremities: + pedal edema and + edema Gastrointestinal (Abdomen): normal bowel sounds, soft, nontender, no hepatosplenomegaly Percussion/Palpation: abdomen soft; abdomen nontender and no guarding Musculoskeletal: Extremities: strength 5/5 throughout Skin: + erythema (right lower extremity) Neurologic: PERRL, EOMI, accommodation nl, no face palsy, no dysarthria Psychiatric: Affect: mood congruent with affect Mood: + depressed mood and + anxious mood Results & Data Results & Data Vital Signs (Past 12 Hours) Vital Signs Temp Pulse Pulse Resp BP BP Pulse Ox 02/19/24 19:00 86 16 133/88 100 02/19/24 17:13 96 H 02/19/24 17:02 92 02/19/24 17:00 87 L 02/19/24 16:52 99 H 16 130/80 91 02/19/24 16:37 36.8 C 106 H 26 H 155/78 H 96 O2 Del Method O2 Flow Rate 02/19/24 19:00 Nasal Cannula 2 02/19/24 17:13 02/19/24 17:02 Nasal Cannula 2 02/19/24 17:00 Room Air 02/19/24 16:52 Room Air 02/19/24 16:37 Room Air Laboratory Results 02/19/24 17:04 WBC 16.31 H RBC 3.98 L Hgb 10.0 L Hct 32.9 L MCV 82.7 MCH 25.1 MCHC 30.4 L RDW Std Deviation 53.6 H RDW Coeff of Malick 18.0 H Plt Count 507 H MPV 9.9 Immature Gran % (Auto) 1.1 Neut % (Auto) 89.1 Lymph % (Auto) 7.1 [place] % (Auto) 2.5 Eos % (Auto) 0.0 Baso % (Auto) 0.2 Neut # (Auto) 14.53 H Lymph # (Auto) 1.15 L [place] # (Auto) 0.41 Eos # (Auto) 0.00 Baso # (Auto) 0.04 Immature Gran # (Auto) 0.18 PT 11.0 INR 1.0 Sodium 137 Potassium 4.3 Chloride 96 L Carbon Dioxide 31 Anion Gap 10 BUN 23 Creatinine 0.95 Est Cr Clr Drug Dosing 66.2 eGFR 67.74 BUN/Creatinine Ratio 24.2 H Glucose 158 H Calcium 9.5 Total Bilirubin 0.3 AST 14 ALT 20 Alkaline Phosphatase 93 Troponin I High Sens 16.1 H B-Natriuretic Peptide 239 H Total Protein 6.8 Albumin 4.0 Globulin 2.8 Albumin/Globulin Ratio 1.4 Procalcitonin 0.07 Diagnostic Findings CXR: IMPRESSION: 1. Cardiomegaly with pulmonary vascular congestion, similar to prior exam. 2. Lower lung densities which favor atelectasis when correlating with abdominal CT of January 28, 2024. Infectious process is considered less likely. Radiographic follow-up is recommended. TTE performed in 07/2023: Technically limited study, normal EF without any WMA. ECG Additional Comments: NSR/Sinus tach at 110 Poor RW progression ?Old inferior infarct Code Status & VTE Plan Code Status Full code per discussion with patient. VTE Prophylaxis Plan VTE Prophylaxis will be ordered: No Reason for no VTE drug order: Contraindicated (GIB on recent admission and anticoag stopped since then) and Treatment not tolerated Reason for no VTE mechanical prophylaxis: Contraindicated (Patient with Redness of RLE and concern for DVT at this time.) PG Care Time/CCT Total # of Minutes Spent Total Time Spent with Patient: Total time spent is greater than 50% in coordination of care (as documented) at patient's floor/unit and/or counseling patient: Coding Level of Care Code 57195 INT INP/OBS CARE 2MIN Diagnoses Chronic heart failure with preserved ejection fraction I50.32 Heart failure chronicity: chronic Bilateral edema of lower extremity R60.0 Cellulitis L03.90 Laterality: right Site of cellulitis of extremity: lower extremity DM II (diabetes mellitus, type II), controlled E11.9 COPD (chronic obstructive pulmonary disease) J44.9 COPD type: unspecified COPD History of pulmonary embolism Z86.711 Tobacco use disorder F17.200 Time Spent (min) 60 (1) Heart failure with preserved ejection fraction Heart failure chronicity: chronic Qualified Code(s): I50.32 - Chronic diastolic (congestive) heart failure (3) Cellulitis Laterality: right Site of cellulitis of extremity: lower extremity (5) COPD (chronic obstructive pulmonary disease) COPD type: unspecified COPD Qualified Code(s): J44.9 - Chronic obstructive pulmonary disease, unspecified
--- NOTE | 2024-02-19 21:46 | Ultrasound Report ---
ULTRASOUND RIGHT LOWER EXTREMITY VENOUS CLINICAL HISTORY: Right leg swelling and erythema. COMPARISON STUDY: Bilateral lower extremity venous ultrasound dated 12/30/2023. TECHNIQUE: Real-time, grayscale, and color Doppler sonography of the deep veins of the right lower ex tremity was performed from the inguinal crease to the calf. Compression and augmentation were utilize d. FINDINGS: There is no sonographic evidence of deep venous thrombosis identified in the right lower ex tremity. The common femoral, superficial femoral, and popliteal veins are patent and normally gilbert sible. The greater saphenous vein and the profunda femoris vein at the junction with the common femor al vein are clear. The visualized calf veins are patent. A small popliteal cyst measures 4.0 x 0.8 x 1.8 cm. IMPRESSION: 1. There is no sonographic evidence of deep venous thrombosis identified in the right lower extremity . 2. Lin's cyst. ACT 112: Negative or not required by law. Electronically signed by: Cayetano Espinoza M.D. 02/19/2024 9:45 PM
[2024-02-19] MEDS ORDERED: IPRATROPIUM BROMIDE NEB SOLN 0.02% 0.5MG/2.5ML VIAL NEB PRN (23:29)
[2024-02-19] MEDS ORDERED: DEXTROSE 50% 50 ML SYRINGE IV PRN (23:29)
[2024-02-19] MEDS ORDERED: GLUCAGON FOR INJ 1 MG VIAL SQ PRN (23:29)
[2024-02-19] MEDS ORDERED: GLUCOSE 10 TAB/TUBE PO PRN (23:29)
[2024-02-19] MEDS ORDERED: PHARMACY GLYCEMIC MGMT CONSULT PRN (23:29)
[2024-02-20] MEDS: INSULIN ASPART PER UNIT CHARGE SC SCH (00:05)
[2024-02-20] MEDS: ACETAMINOPHEN 325 MG TAB PO PRN (06:39)
--- OUTSIDE RECORDS SUMMARY | 2024-02-20 07:19 | External Medical Summary | Continuity of Care Document ---
Author Name Unknown Organization [address] [place] [address] [id number] Care Team Providers Care Financial Professional Name Role Phone Radha Barboza Primary Care Physician [phone] [id number] Date(s): 02/15/24 - 02/15/24 [facility] [address] [facility] [address] [facility] [address] [facility] [address] [place] [address] [phone] Encounter Diagnosis CHF, chronic(Discharge Diagnosis) - 02/15/24 COPD mixed type(Discharge Diagnosis) - 02/15/24 Controlled diabetes mellitus with hyperglycemia(Discharge Diagnosis) - 02/15/24 Leukocytosis(Discharge Diagnosis) - 02/15/24 Elevated white blood cell count, unspecified(Final) - Heart failure, unspecified(Final) - Chronic obstructive pulmonary disease, unspecified(Final) - Type 2 diabetes mellitus with hyperglycemia(Final) - Discharge Disposition: Home or Self Care [...] lancet, Refills: 0, 32G x , Pharmacy:[facility]/pharmacy #[id number] Start Date: 06/30/23 Status: Ordered allopurinol 300 mg oral tablet Start: 12/24/23 7:01:00 PM EDT, 1 tab, PO, Daily, Disp# 30 tab, Refills: 5, Pharmacy: [facility]/pharmacy #[id number] Start Date: 12/24/23 Stop Date: 06/21/24 Status: Ordered ALPRAZolam 0.5 mg oral tablet Start: 02/15/24 10:01:00 AM EDT, 1 tab, PO, bid, Disp# 90 tab, Refills: 5, Make take an extra tablet for acute panic attacks. Max 3/day, PRN: as needed for anxiety, Pharmacy: [facility]/pharmacy #[id number] Start Date: 02/15/24 Status: Ordered bumetanide 2 mg oral tablet Start: 03/09/23 10:51:00 PM EST, See Instructions, Disp# 360 tab, Refills: 3, Take 2 tablets twice daily, Pharmacy: [facility]/pharmacy #[id number] Start Date: 03/09/23 Status: Ordered buprenorphine-naloxone 8 mg-2 mg sublingual film Start: 02/16/24 2:18:00 PM EDT, 0.5 patch, SL, bid, Disp# 30 patch, Refills: 0, Note to Pharmacy: PDMP checked & CSA on file., Pharmacy: [facility]/pharmacy #[id number] Start Date: 02/16/24 Stop Date: 03/17/24 Status: Ordered colchicine 0.6 mg oral tablet TAKE 2 TABLETS BY MOUTH ONCE, THEN TAKE 1 TABLET TWICE A DAY FOR 3 DAYS NEEDED FOR GOUT ATTACKS Start Date: 11/03/23 Status: Ordered Dexcom G6 Sales Data Analyst Kit Start: 10/11/23 8:34:00 PM EDT, See Instructions, Disp# 1 kit, Test three times daily, Note to Pharmacy: Dx E11.65, Pharmacy: [facility]/pharmacy #[id number] Start Date: 10/11/23 Status: Ordered Dexcom G6 Sensor Kit Start: 11/25/23 11:27:00 AM EDT, See Instructions, Disp# 3 kit, Refills: 5, Test three times daily, Note to Pharmacy: Dx E11.65, Pharmacy: [facility]/pharmacy #[id number] Start Date: 11/25/23 Status: Ordered DEXCOM G6 TRANSMITTER Start: 02/16/24 4:40:00 PM EDT, DEXCOM G6 TRANSMITTER, See Instructions, Disp# 1 unknown unit, Refills: 0, TEST 3 TIMES A DAY, Pharmacy [facility] STORE [id number] Start Date: 02/16/24 Status: Ordered Dexcom G6 Transmitter Kit Start: 10/11/23 8:36:00 PM EDT, See Instructions, Disp# 1 kit, Test three times daily, Pharmacy: [facility]/pharmacy #[id number] Start Date: 10/11/23 Status: Ordered fluticasone 50 mcg/inh nasal spray Start: 09/02/23 9:54:00 AM EDT, 1 spray, each nostril, bid Start Date: 09/02/23 Status: Ordered Lantus Solostar Pen Start: 09/25/14 10:14:00 AM EDT, 55 unit =, subQ, Daily Start Date: 09/25/14 Status: Ordered levalbuterol 1.25 mg/3 mL for nebulization Start: 02/15/24 10:11:00 AM EDT, 3 mL, NEB, qid, Disp# 360 mL, Refills: 5, Pharmacy: [facility]/pharmacy #[id number] Start Date: 02/15/24 Status: Ordered levalbuterol CFC free 45 mcg/inh inhalation aerosol Start: 08/26/23 4:26:00 PM EDT, 2 puff, inhaled, q6h, Disp# 15 g, Refills: 3, PRN: as needed for wheezing, Pharmacy: [facility]/pharmacy #[id number] Start Date: 08/26/23 Status: Ordered montelukast 10 mg oral tablet Start: 11/24/23 3:55:00 PM EDT Start Date: 11/24/23 Status: Ordered NovoLOG FlexPen 100 units/mL injectable solution Start: 12/09/23 11:19:00 AM EDT, 10 unit =, subQ, ac, Disp# 15 mL, Refills: 5, Pharmacy: [facility]/pharmacy #[id number] Start Date: 12/09/23 Status: Ordered ondansetron 4 mg oral tablet, disintegrating Start: 12/08/23 5:45:00 PM EDT, 1 tab, PO, q8h, Disp# 30 tab, Refills: 1, PRN: NEEDED FOR NAUSEA/VOMITING, Pharmacy: [facility] STORE [id number] Start Date: 12/08/23 Status: Ordered Ozempic (0.25 mg or 0.5 mg dose) 2 mg/3 mL subQ pen Start: 12/09/23 11:20:00 AM EDT, See Instructions, subQ, q7days, Disp# 3 mL, Refills: 1, Inject 0.5 mg every 7 days X 4 weeks, Pharmacy: [facility]/pharmacy #[id number], Supply Start Date: 12/09/23 Status: Ordered Potassium Chloride (Yok-Efuj-Wau M20) 20 mEq oral tablet, extended release Start: 01/04/24 11:19:00 AM EDT, 2 tab, PO, qid, Disp# 720 tab, Refills: 3, [id number] Start Date: 01/04/24 Status: Ordered predniSONE 10 mg oral tablet Start: 12/30/23 12:14:00 PM EDT, 1 tab, PO, Daily, Disp# 30 tab, Refills: 1, [id number] Start Date: 12/30/23 Stop Date: 02/28/24 Status: Ordered predniSONE 20 mg oral tablet Start: 02/15/24 9:08:00 AM EDT Start Date: 02/15/24 Status: Ordered Seroquel 100 mg oral tablet Start: 02/15/24 10:04:00 AM EDT, 1 tab, PO, Daily, Disp# 90 tab, Refills: 5, Pharmacy: [facility]/pharmacy#[id number] Start Date: 02/15/24 Stop Date: 08/08/25 Status: Ordered spironolactone 50 mg oral tablet Start: 02/15/24 9:57:00 AM EDT, 1 tab, PO, Daily, Disp# 90 tab, Refills: 3, Pharmacy: [facility]/pharmacy #[id number] Start Date: 02/15/24 Status: Ordered Trelegy Ellipta 200 mcg-62.5 mcg-25 mcg/inh inhalation powder Start: 07/08/22 11:13:00 AM EDT Start Date: 07/08/22 Status: Ordered UltiCare Pen Needle 32G x 4mm Start: 07/08/23 2:51:00 PM EDT, See Instructions, Disp# 100 pen_needle, Refills: 1, Use three times daily, Note to Pharmacy: E11.65, Pharmacy: [facility]/pharmacy #[id number] Start Date: 07/08/23 Status: Ordered Ventolin HFA 90 mcg/inh inhalation aerosol Start: 08/13/23 11:23:00 AM EDT, 2 puff, inhaled, qid, Disp# 8 g, Refills: 5, PRN: as needed for wheezing, Pharmacy: [facility]/pharmacy #[id number] Start Date: 08/13/23 Status: Ordered Mental Status 02/15/24 Barriers to Learning one year None evide nt Mandatory Health Literacy Documentation Yes Health Literacy Communication Barriers N ever Primary Language Liberian Problem List Condition Confirmation Course Effective Dates Status Health St atus Informant Anxiety Confirmed Active Chronic low back pain Confirmed Active COPD without exacerbation Confirmed Active Congestive heart failure Confirmed Active Diabetes Confirmed Active Dyspnea on minimal exertion Confirmed Active Lower extremity edema Confirmed Active History of pulmonary embolus (PE) Confirmed Active History of ovarian cancer Confirmed Active Multiple myeloma Confirmed Active Chemotherapy-induce d nausea Confirmed Active Opioid use disorder in remission Confirmed Active Seasonal allergies Confirmed Active Tobacco user Confirmed Active Weight disorder Confirmed Active Diagnosis Diagnosis Type Effective Dates Health Status Clinical Service Informant Controlled diabetes mellitus with hyperglycemia Discharge Diagnosis 02/15/24 Non-Specified Leukocytosis Discharge Diagnosis 02/15/24 Non-Specified CHF, chronic Discharge Diagnosis 02/15/24 Non-Specified COPD mixed type Discharge Diagnosis 02/15/24 Non-Specified Procedures Procedure Date Related Diagnosis Body Site Status Bone marrow biopsy 2013 [facility] ganesh Results Laboratory List Name Date Basic Metabolic Panel (BASIC METAB PANEL ) 02/15/24 Complete Blood Count (CBC) 02/15/24 Hemoglobin A1C (HEMOGLOBIN, A1C) 4 Hepatic Function Panel (HEPATIC FUNCT PA SHANE) 02/15/24 Most recent to oldest [Reference Range]: 1 eGFR CKD-EPI [>60 mL/min/1.73 m2] 48 mL/ min/1.73 m2 1 *LOW* (02/15/24 10:27 AM) Estimated Average Glucose 171 mg/dL 2 (02/15/24 10:27 AM) Estimated CrCl 51.59 mL/min (02/15/24 12:43 PM) MPV [9.0-12.2 fL] 10.5 fL (02/15/24 10: AM) RDW [11.5-14.2 %] 18.0 % *HI* (02/15/24 10: AM) Anion Gap [5-14 mmol/L] 7 mmol/L (02/15/24 10: AM) Alb [3.5-5.0 g/dL] 3.6 g/dL (02/15/24 10: AM) Alk Phos [38-126 unit/L] 113 unit/L (02/15/24 10: AM) ALT [<35 unit/L] 24 unit/L (02/15/24: AM) AST [15-46 unit/L] 38 unit/L (02/15/24 10: AM) BUN [7-20 mg/dL] 25 mg/dL *HI* (02/15/24: AM) Ca [8.4-10.2 mg/dL] 8.8 mg/dL (02/15/24 10: AM) Cl- [96-107 mmol/L] 102 mmol/L (02/15/24 10: AM) HCO3 [22-30 mmol/L] 29 mmol/L (02/15/24: AM) Cret [0.60-1.00 mg/dL] 1.27 mg/dL *HI* (02/15/24 10: AM) D Bili [0.0-0.6 mg/dL] 0.3 mg/dL (02/15/24 10: AM) HbA1c [4.0-6.0 %] 7.6 % *HI* (02/15/24 10: AM) Glu [74-106 mg/dL] 125 mg/dL *HI* (02/15/24 10: AM) Hct [35-44 %] 30.9 % *LOW* (02/15/24 10: AM) Hgb [11.7-15.0 g/dL] 9.2 g/dL *LOW* (02/15/24 10: AM) K [3.5-5.1 mmol/L] 5.3 mmol/L *HI* (02/15/24 10: AM) MCH [28-33 pg] 25.8 pg *LOW* (02/15/24 10: AM) MCHC [32-36 g/dL] 29.8 g/dL *LOW* (02/15/24 10: AM) MCV [81-96 fL] 86.8 fL (02/15/24 10: AM) Na [137-145 mmol/L] 138 mmol/L (02/15/24 10: AM) Plts [150-350 K/uL] 471 K/uL *HI* (02/15/24 10: AM) RBC [3.90-5.00 M/uL] 3.56 M/uL *LOW* (02/15/24: AM) T Bili [0.2-1.3 mg/dL] 0.3 mg/dL (02/15/24 10: AM) Prot [6.3-8.2 g/dL] 6.4 g/dL 3 (02/15/24 10: AM) WBC [4.0-10.4 K/uL] 18.36 K/uL *HI* (02/15/24 10: AM) 1Result Comment: Testing Performed By: Dept of Pathology [facility] Gabino George, [address] [place] [address], [place] [address] 2Result Comment: Testing Performed By: Dept of Pathology [facility] Gabino George, [address] [place], [place] [address]ner [facility] [place] [address] 3Result Comment: Testing Performed By: Dept of Pathology [facility] Gabino George, [address] [place] [address], [place] [address] Vital Signs Most recent to oldest [Reference Range]: 1 Height 157.8 cm (02/15/24 9:09 AM) Patient Weight 102.3 kg (02/15/24 9:09 AM) Body Mass Index 41.08 kg/m2 (02/15/24 9:09 AM) Temperature [36.5-37.9 DegC] 36.6 DegC (02/15/24 9:09 AM) Heart Rate 103 bpm (02/15/24 9:09 AM) Respiratory Rate 26 br/min (02/15/24 9:09 AM) Blood Pressure 130/80mmHg (02/15/24 9:09 AM) Cuff Pulse Pressure 50 mmHg (02/15/24 9:09 AM) Social History Social History Type Response Smoking Status Current every day li ght smoker Sex Female Sex Representation Female (finding) Patient Care team information Care Team Personnel Name: ELENA Barboza, Radha Bhatia Position: Physician Asst Exmpt - Family Med Member Role: Primary Care Provider Address: [address] [address] Name: MARGARET Dunn Jo Ann M Position: Nurse Pract - Hem/Onc Member Role: Lifetime Relationship Address: [address] [place] [id number] Care Team Related Persons Name: [place] SAMUEL
--- NOTE | 2024-02-20 07:45 | Electrocardiogram Report ---
Test Reason : Blood Pressure : */* mmHG Vent. Rate : 92 BPM Atrial Rate : 92 BPM P-R Int : 142 ms QRS Dur : 68 ms QT Int : 324 ms P-R-T Axes : 52 14 46 degrees QTcB Int : 400 ms Normal sinus rhythm Abnormal ECG When compared with ECG of 12-Feb-2024 09:13, Nonspecific T wave abnormality, improved in Inferior leads Confirmed by Nelson Kenny ([id number]) on 02/20/2024 7:45:24 AM Referred By: Radha Barboza Confirmed By: Nelson Kenny
[2024-02-20] MEDS ORDERED: oxyCODONE HCL IR 5 MG TAB (IMMEDIATE RELEASE) PO PRN (07:52)
[2024-02-20] MEDS: BUPRENORPHINE/NALOXONE 8/2 MG TAB SL SCH (08:23)
[2024-02-20] MEDS: ALPRAZolam 0.5 MG TABLET PO PRN ×2 (08:25→21:24)
[2024-02-20] MEDS: allopurinoL 300 MG TAB PO SCH (08:29)
[2024-02-20] MEDS: cefTRIAXone SODIUM 2,000 MG/50 ML BAG IV SCH (08:29)
[2024-02-20] MEDS: SPIRONOLACTONE 25 MG TAB PO SCH (08:30)
[2024-02-20] MEDS: FLUTICASONE FUROATE 200MCG 14 PUFFS/INHALER INH SCH (08:30)
[2024-02-20] MEDS: UMECLIDINIUM/VILANTEROL 62.5/25MCG 7 PUFFS/INHALER INH SCH (08:30)
[2024-02-20] MEDS: predniSONE 5 MG TAB PO SCH (08:31)
[2024-02-20] MEDS: BUMETANIDE 2 MG in SYRINGE 0 ML IV SCH (08:32)
[2024-02-20] MEDS: guaiFENesin 600 MG TABCR PO SCH (08:33)
[2024-02-20] MEDS: oxyCODONE HCL IR 5 MG TAB (IMMEDIATE RELEASE) PO STA (08:41)
[2024-02-20] MEDS ORDERED: NON-FORMULARY MEDICATION (Fluticasone-Umeclidin-Vilanter [Trelegy Ellipta] 200-62.5-25 mcg INH SCH (09:00)
[2024-02-20] MEDS: LANTUS PER UNIT CHARGE SQ SCH (09:03)
[2024-02-20 09:49] LABS: Basophils # (auto) 0.04 K/uL (0.00-0.20); Basophils % (auto) 0.3 %; Eosinophils # (auto) 0.18 K/uL (0.00-0.50); Eosinophils % (auto) 1.2 %; Hematocrit (blood only) 34.5 % (37.0-47.0); Hemoglobin 10.3 g/dl (12.0-16.0); Immature Granulocytes # (auto) 0.06 K/uL (0.01-0.20); Immature Granulocytes % (auto) 0.4 %; Lymphocytes # (auto) 2.74 K/uL (1.20-3.40); Lymphocytes % (auto) 17.6 %; Mean Corpuscular Hgb Conc 29.9 g/dL (32.0-36.0); Mean Corpuscular Volume 83.7 fL (80.0-100.0); Mean Platelet Volume 9.6 fL (9.4-12.4); Monocytes # (auto) 0.81 K/uL (0.11-0.59); Monocytes % (auto) 5.2 %; Neutrophils % (auto) 75.3 %; Platelet Count 496 K/uL (130-400); RDW Coefficient of Variation 18.4 % (11.5-14.5); RDW Standard Deviation 55.4 fL (36.4-46.3); Red Blood Count 4.12 M/uL (4.20-5.40); White Blood Count 15.53 K/ul (4.8-10.8)
[2024-02-20 10:00] LABS: BUN Creatinine Ratio 22.6 (10-20); Calcium 9.2 mg/dl (8.6-10.3); Creatinine Clr Calc Pharmacy 74.9 ml/min; Potassium 3.9 mmol/L (3.5-5.1)
[2024-02-20] MEDS: INFLUENZA VACC TS2024-25(6m+)/PF (IIV3) 0.5mL Syr IM ONE (11:28)
--- NOTE | 2024-02-20 13:42 | Pharmacy Report ---
Pharmacy Glycemic Short Note 2 - Date of Service February 20, 2024 - Glycemic Short BSG Results (Last 24 hours): 02/19/24 02/19/24 02/20/24 17:04 23:40 08:16 Glucose 158 H POC Glucose 180 H 149 H 02/20/24 02/20/24 02/20/24 09:16 09:30 11:50 Glucose 170 H POC Glucose 159 H 98 OUTPATIENT ANTIDIABETIC REGIMEN: * Lantus 68 units SQ qAM * Novolog SSI ACHS * semaglutide 0.25mg SQ weekly HbA1C: 8.3% (01/19/24) ASSESSMENT: * Pt is a 63 YOF well known to the glycemic pharmacy service admitted with CHF and possible RLE cellulitis. History of DM2 on insulin therapy at home. Pharmacy consulted to assist with inpatient glycemic management. * BSGs [phone]/dL since admission. Received 2 units of bolus insulin yesterday. * Continued on home prednisone, tolerating diet and receiving IV antibiotics. * Continue home Lantus dose. Novolog ACHS / to start based upon historical inpatient dosing. PLAN FOR INPATIENT GLYCEMIC CONTROL: * Hold outpatient oral diabetes medications * Basal insulin * Lantus 68 units SQ daily * Bolus insulin * NovoLog per scale ACHS or Q6hrs while NPO * Goal Range: Low 110 mg/dL - High 140 mg/dL * Correction Factor: 15 mg/dL/unit * Nutritional / Prandial insulin per carb ratio of 1 unit per 4 grams CHO consumed
--- NOTE | 2024-02-20 15:45 | Hospitalist Progress Note ---
Date of Service February 20, 2024 Assessment & Plan (1) Heart failure with preserved ejection fraction: Plan: Presented with dyspnea and bilateral lower extremity edema - CXR on admission showing cardiomegaly and pulmonary edema - Last echocardiogram on 07/2023 showed EF 60 to 65%, moderate LVH - BNP 239 on admission - Heart healthy, low-sodium, fluid restricted diet - patient requesting fluid restriction to be lightened to 2000 mL; with withhold at this time given volume overload - Patient on Bumex at home, recently increased in clinic. Currently 2 mg PO daily which is a big decrease from previous dose of 4mg bid. Will increase IV Bumex to 4 mg daily - Continue 25 mg Spironolactone po daily - Strict I&O monitoring - Daily weights - promote leg elevation, and frequent movement - patient cannot handle SCDs given right ankle pain - monitor on tele (2) Cellulitis: Plan: RLE redness - concern for cellulitis vs gout flare - RLE duplex negative for DVT - leukocytosis; but chronic given steroid use and multiple myeloma history - afebrile, mildly tachycardic - Continue IV ceftriaxone for now - Ice/ cold pack prn (3) Gout: Plan: colchicine recently stopped. Has had flares recently. - Patient on allopurinol only, continue 300 mg qdaily - restart colchicine 0.6 daily on 02/20 given right ankle redness and pain - uric acid with AM labs (4) DM II (diabetes mellitus, type II), controlled: Plan: - DM diet - Accuchek ACHS with SSI - Lantus 65 Units daily - On Ozempic weekly per medication list - A1C 8.3 (5) COPD (chronic obstructive pulmonary disease): Plan: stable, not acute exacerbation (chronic hypoxic resp failure) - Continue Trelegy qAM - Continue Levalbuterol and Atrovent q6h PRN for SOB - Patient has been on prednisone, and at last d/c from hospital 2 weeks ago dose changed to 5 mg daily; will continue this for now with goal to wean off - CPAP overnight (6) Tobacco use disorder: Plan: - declines need for nicotine patch at this time (7) Generalized anxiety disorder: Plan: - doses adjusted last admission due to drowsiness/confusion - Cont Seroquel 50 mg qhs - Cont Celexa 10 mg daily - Xanax 0.5 PO TID PRN (8) Anemia: Plan: ABLA with leukocytosis History of multiple myeloma and stem cell transplant - ABLA given recent rectal bleeding on previous admission - Declined EGD/colonoscopy on previous admission - hemoglobin currently 10.3 - to have outpatient follow-up with oncology although with recurrent admissions has been unable to make appointments Plan Chronic stable diagnoses: Opioid use disorder - Continue Buprenorphine/Naloxone 8-2 mg 0.5 film BID VTE ppx: Patient currently declines SCDs given right ankle pain. Recent GI bleed in which she declined colonoscopy. Spoke with nursing staff and will promote frequent movements at this time. Can add SCDs when ankle pain improves. Diet: diabetes, heart healthy, low-sodium, fluid restricted 2000 mL diet Code status: Full Dispo: MedSurg with telemetry Admission and Anticipated Discharge Date Admission Date: February 19, 2024 Supervising Physician Co-Signing Physician Notes Physician Manufacturing Supervisor 2Nd Shift Supervision note: I have not personally seen and examined the patient, but discussed and verified the rosario points of the history and physical along with the plan with YELENA Anguiano with the following exceptions and/or additions: None Subjective Patient seen at bedside, doing well with no acute events overnight. She was pleasant and eating her lunch. She stated that she is always short of breath, no significant change. She denies abdominal pain and nausea. She stated that she has significant right ankle pain. She has been up and out of bed and into a chair. She feels that the SCDs will irritate her right leg. She stated that she has been compliant with her medication. She wishes to have her fluid restriction lightened. Tele: NSR, HR 80s-90s. Review of Systems Review of Systems: See HPI Physical Exam Physical Exam: The patient is awake, alert and oriented 3, well developed and well nourished, normocephalic and atraumatic, in no acute distress. Non-toxic appearing. HEENT- EOMI, mucous membranes moist. Hearing grossly intact. Heart-normal S1 and S2. No murmurs, rubs or gallops. Lungs-decreased bilaterally, no respiratory distress, no accessory muscle use. Abdomen-normal bowel sounds and soft. Non-tender. Extremities- no clubbing, cyanosis. +3 pitting edema to bilateral lower extremity. Redness and tenderness to right ankle. Rheumatologic-normal range of motion. Psychiatric-normal affect. Results & Data Results & Data Vital Signs (Past 12 Hours) Vital Signs Temp Pulse Pulse Resp BP Pulse Ox O2 Del Method 02/20/24 15:23 37.1 C 99 H 18 103/66 93 Room Air 02/20/24 15:01 92 H 02/20/24 11:26 36.9 C 97 H 18 101/68 95 Room Air 02/20/24 09:54 Room Air, CPAP 02/20/24 07:30 36.9 C 87 18 105/64 95 Room Air 02/20/24 07:14 88 Laboratory Results Reviewed CBC, BMP PG Care Time/CCT Total # of Minutes Spent Total Time Spent with Patient: Total time spent is greater than 50% in coordination of care (as documented) at patient's floor/unit and/or counseling patient: Coding Level of Care Code 08955 SUB INP/OBS CARE 3/50MIN Diagnoses Chronic heart failure with preserved ejection fraction I50.32 Heart failure chronicity: chronic Cellulitis L03.90 Laterality: right Site of cellulitis of extremity: lower extremity Gout M10.9 DM II (diabetes mellitus, type II), controlled E11.9 COPD (chronic obstructive pulmonary disease) J44.9 COPD type: unspecified COPD Tobacco use disorder F17.200 Generalized anxiety disorder F41.1 Anemia D64.9 (1) Heart failure with preserved ejection fraction Heart failure chronicity: chronic Qualified Code(s): I50.32 - Chronic diastolic (congestive) heart failure (2) Cellulitis Laterality: right Site of cellulitis of extremity: lower extremity (5) COPD (chronic obstructive pulmonary disease) COPD type: unspecified COPD Qualified Code(s): J44.9 - Chronic obstructive pulmonary disease, unspecified
[2024-02-20] MEDS: POTASSIUM CHLORIDE CRTAB 20 MEQ TABCR PO SCH (17:47)
[2024-02-20] MEDS: ENOXAPARIN INJ 40 MG/0.4 ML SYR SQ SCH (18:21)
[2024-02-20] MEDS: QUEtiapine FUMARATE 25 MG TABLET PO SCH (21:06)
[2024-02-20] MEDS: CITALOPRAM 20 MG TAB PO SCH (21:06)
[2024-02-20] MEDS: KETOROLAC TROMETHAMINE 10 MG TABLET PO PRN (21:51)
[2024-02-21 06:26] LABS: Hematocrit (blood only) 31.3 % (37.0-47.0); Hemoglobin 9.2 g/dl (12.0-16.0); Mean Corpuscular Hemoglobin 24.5 pg (25.0-34.0); Mean Corpuscular Hgb Conc 29.4 g/dL (32.0-36.0); Mean Corpuscular Volume 83.2 fL (80.0-100.0); Mean Platelet Volume 9.7 fL (9.4-12.4); Platelet Count 460 K/uL (130-400); RDW Coefficient of Variation 17.9 % (11.5-14.5); RDW Standard Deviation 54.3 fL (36.4-46.3); Red Blood Count 3.76 M/uL (4.20-5.40); White Blood Count 11.34 K/ul (4.8-10.8)
[2024-02-21 06:46] LABS: BUN Creatinine Ratio 27.3 (10-20); C Reactive Protein 0.82 mg/dl (0-0.5); Calcium 8.6 mg/dl (8.6-10.3); Creatinine Clr Calc Pharmacy 80.6 ml/min; Magnesium 1.7 mg/dl (1.7-2.4); Potassium 3.8 mmol/L (3.5-5.1); Uric Acid 5.8 mg/dl (2.6-7.2)
[2024-02-21] MEDS: COLCHICINE 0.6 MG TAB PO SCH (08:34)
[2024-02-21] MEDS: BUMETANIDE 4 MG in SYRINGE 0 ML IV SCH ×2 (08:35→16:28)
[2024-02-21] MEDS: MAGNESIUM OXIDE 400 MG TAB PO SCH (09:22)
--- NOTE | 2024-02-21 10:15 | Hospitalist Progress Note ---
Date of Service February 21, 2024 Assessment & Plan (1) Heart failure with preserved ejection fraction: Plan: Presented with dyspnea and bilateral lower extremity edema; improving - CXR on admission showing cardiomegaly and pulmonary edema - Last echocardiogram on 07/2023 showed EF 60 to 65%, moderate LVH - BNP 239 on admission - Heart healthy, fluid restricted diet - Strict I&O monitoring and Daily weights - promote leg elevation, and frequent movement - monitor on tele - Continue 25 mg Spironolactone po daily - Increase Bumex to 4 mg BID Hypomagnesemia - PO supplement x 3 doses - Mg with AM labs (2) Cellulitis: Plan: RLE redness - concern for cellulitis vs chronic venous stasis - RLE duplex negative for DVT - leukocytosis; but chronic given steroid use and multiple myeloma history - afebrile - Ceftriaxone -> Keflex 500 po QID for a total of 7 days (last dose 02/25 PM) - Ice/ cold pack prn (3) DM II (diabetes mellitus, type II), controlled: Plan: - DM diet - Accuchek ACHS with SSI - Lantus 68 Units daily - On Ozempic weekly per medication list - A1C 8.3 - discontinued pharmacy consult (4) COPD (chronic obstructive pulmonary disease): Plan: stable, not acute exacerbation (chronic hypoxic resp failure) - Continue Trelegy qAM - Continue Levalbuterol and Atrovent q6h PRN for SOB - Patient has been on prednisone, and at last d/c from hospital 2 weeks ago dose changed to 5 mg daily; will continue this for now with goal to wean off slowly- has been on steroids chronically for over a year - BiPAP overnight (5) Tobacco use disorder: Plan: - declines need for nicotine patch at this time (6) Anemia: Plan: ABLA with leukocytosis History of multiple myeloma and stem cell transplant - ABLA given recent rectal bleeding on previous admission - Declined EGD/colonoscopy on previous admission - hemoglobin currently 9.2 - to have outpatient follow-up with oncology although with recurrent admissions has been unable to make appointments - iron panel with AM labs - restarted on once daily Lovenox given PE and MM history; although closely monitor hemoglobin given recent GI bleed Plan Chronic stable diagnoses: Opioid use disorder - Continue Buprenorphine/Naloxone 8-2 mg daily Gout - continue allopurinol; uric acid and CRP WNL Anxiety - continue Seroquel, Celexa, and Xanax prn VTE ppx: Lovenox 40mg Q24H; low dose given recent GI bleed, unable to tolerate SCDs Diet: diabetes, heart healthy, fluid restricted 2000 mL diet Code status: Full Dispo: MedSurg with telemetry Admission and Anticipated Discharge Date Admission Date: February 19, 2024 Supervising Physician Co-Signing Physician Notes Physician Car Seat Coverer Supervision note: I have not personally seen and examined the patient, but discussed and verified the rosario points of the history and physical along with the plan with YELENA Anguiano with the following exceptions and/or additions: None Subjective Patient seen at bedside and doing well with no acute events overnight. All questions and concerns answered. She stated that she continues to have right foot pain although improving. She currently has a headache. She stated that she takes all 8 mg of her suboxone in the morning at home. She denies recent melena. She has dyspnea that is unchanged from her baseline. The edema in her legs has improved. Tele: NSR overnight with HR 80s-90s. Currently tachycardic at 108. Review of Systems Review of Systems: See HPI Physical Exam Physical Exam: The patient is awake, alert and oriented 3, well developed and well nourished, normocephalic and atraumatic, in no acute distress. Non-toxic appearing. HEENT- EOMI, mucous membranes moist. Hearing grossly intact. Heart-normal S1 and S2. No murmurs, rubs or gallops. Lungs-decreased bilaterally, no respiratory distress, no accessory muscle use. Abdomen-normal bowel sounds and soft. Non-tender. Extremities- no clubbing, cyanosis. +2 pitting edema to bilateral lower extremity. Redness and tenderness to right ankle, improving. Rheumatologic-normal range of motion. Psychiatric-normal affect. Results & Data Results & Data Vital Signs (Past 12 Hours) Vital Signs Temp Pulse Pulse Resp BP Pulse Ox O2 Del Method 02/21/24 07:30 Room Air 02/21/24 07:28 36.7 C 95 H 16 132/84 90 Room Air 02/21/24 05:37 86 02/21/24 03:22 36.3 C L 85 18 145/76 H 96 CPAP 02/21/24 03:08 85 12 93 10/26/24 23:28 88 12 95 02/20/24 22:57 36.4 C L 90 18 95/61 L 90 Room Air O2 Flow Rate 02/21/24 07:30 02/21/24 07:28 02/21/24 05:37 02/21/24 03:22 02/21/24 03:08 2 02/20/24 23:28 2 02/20/24 22:57 Laboratory Results reviewed cbc, bmp, mg, uric acid, crp PG Care Time/CCT Total # of Minutes Spent Total Time Spent with Patient: Total time spent is greater than 50% in coordination of care (as documented) at patient's floor/unit and/or counseling patient: Coding Level of Care Code 83286 SUB INP/OBS CARE 350MIN Diagnoses Chronic heart failure with preserved ejection fraction I50.32 Heart failure chronicity: chronic Cellulitis L03.90 Laterality: right Site of cellulitis of extremity: lower extremity DM II (diabetes mellitus, type II), controlled E11.9 COPD (chronic obstructive pulmonary disease) J44.9 COPD type: unspecified COPD Tobacco use disorder F17.200 Anemia D64.9 (1) Heart failure with preserved ejection fraction Heart failure chronicity: chronic Qualified Code(s): I50.32 - Chronic diastolic (congestive) heart failure (2) Cellulitis Laterality: right Site of cellulitis of extremity: lower extremity (4) COPD (chronic obstructive pulmonary disease) COPD type: unspecified COPD Qualified Code(s): J44.9 - Chronic obstructive pulmonary disease, unspecified
[2024-02-21] MEDS: LEVALBUTEROL HCL 0.63 MG/3 ML NEB NEB PRN (17:44)
[2024-02-22 07:19] LABS: Hematocrit (blood only) 33.5 % (37.0-47.0); Hemoglobin 10.1 g/dl (12.0-16.0); Mean Corpuscular Hemoglobin 25.1 pg (25.0-34.0); Mean Corpuscular Hgb Conc 30.1 g/dL (32.0-36.0); Mean Corpuscular Volume 83.3 fL (80.0-100.0); Mean Platelet Volume 9.7 fL (9.4-12.4); Platelet Count 452 K/uL (130-400); RDW Coefficient of Variation 18.1 % (11.5-14.5); RDW Standard Deviation 54.8 fL (36.4-46.3); Red Blood Count 4.02 M/uL (4.20-5.40); White Blood Count 11.25 K/ul (4.8-10.8)
[2024-02-22 07:43] LABS: BUN Creatinine Ratio 27.8 (10-20); Calcium 8.7 mg/dl (8.6-10.3); Creatinine Clr Calc Pharmacy 84.8 ml/min; Magnesium 1.7 mg/dl (1.7-2.4); Potassium 3.5 mmol/L (3.5-5.1)
[2024-02-22] MEDS: cephALEXin 500 MG CAP PO SCH (07:59)
[2024-02-22] MEDS: BUPRENORPHINE/NALOXONE 8/2 MG TAB SL SCH (08:01)
[2024-02-22 08:03] LABS: Ferritin 40.7 ng/ml (8-388)
[2024-02-22] MEDS: oxyCODONE HCL IR 5 MG TAB (IMMEDIATE RELEASE) PO STA (09:28)
--- NOTE | 2024-02-22 12:15 | Hospitalist Progress Note ---
Date of Service February 22, 2024 Assessment & Plan (1) Heart failure with preserved ejection fraction: Plan: Presented with dyspnea and bilateral lower extremity edema; improving - CXR on admission showing cardiomegaly and pulmonary edema - Last echocardiogram on 07/2023 showed EF 60 to 65%, moderate LVH - BNP 239 on admission - Heart healthy, fluid restricted diet - promote leg elevation, and frequent movement - Continue 25 mg Spironolactone po daily -Patient said her urine output not as brisk as before - Increase Bumex to 4 mg BID -Monitor I/O, daily weights Hypomagnesemia - PO supplement x 3 doses - Mg with AM labs (2) Cellulitis: Plan: RLE redness - concern for cellulitis vs chronic venous stasis some pustuluar areas as well - RLE duplex negative for DVT - leukocytosis; but chronic given steroid use and multiple myeloma history - afebrile - Ceftriaxone -> Keflex 500 po QID for a total of 7 days (last dose 02/25 PM) - Ice/ cold pack prn (3) DM II (diabetes mellitus, type II), controlled: Plan: - DM diet - Accuchek ACHS with SSI - Lantus 68 Units daily - On Ozempic weekly per medication list - A1C 8.3 - discontinued pharmacy consult (4) COPD (chronic obstructive pulmonary disease): Plan: stable, not acute exacerbation (chronic hypoxic resp failure) - Continue Trelegy qAM - Continue Levalbuterol and Atrovent q6h PRN for SOB - Patient has been on prednisone, and at last d/c from hospital 2 weeks ago dose changed to 5 mg daily; will continue this for now with goal to wean off slowly- has been on steroids chronically for over a year - BiPAP overnight (5) Tobacco use disorder: Plan: - declines need for nicotine patch at this time (6) Anemia: Plan: ABLA with leukocytosis History of multiple myeloma and stem cell transplant - ABLA given recent rectal bleeding on previous admission - Declined EGD/colonoscopy on previous admission - hemoglobin currently 9.2 - to have outpatient follow-up with oncology although with recurrent admissions has been unable to make appointments - iron panel with AM labs - restarted on once daily Lovenox given PE and MM history; although closely monitor hemoglobin given recent GI bleed Plan Chronic stable diagnoses: Opioid use disorder - Continue Buprenorphine/Naloxone 8-2 mg daily Gout - continue allopurinol; uric acid and CRP WNL Anxiety - continue Seroquel, Celexa, and Xanax prn VTE ppx: Lovenox 40mg Q24H; low dose given recent GI bleed, unable to tolerate SCDs Diet: diabetes, heart healthy, fluid restricted 2000 mL diet Code status: Full Dispo: Medr with telemetry Admission and Anticipated Discharge Date Admission Date: February 19, 2024 Subjective patient seen and examined, complained of headache and said oxycodone usually helps Review of Systems Review of Systems: All systems reviewed are negative, apart from the ones contained in the history. Physical Exam Physical Exam: The patient is awake, alert and oriented 3, well developed and well nourished, normocephalic and atraumatic, lying in bed and in no acute distress. HEENT--PERRL, EOMI, mucous membranes and oropharynx mildly dry Neck--supple. No JVD. No bruits. Thyroid normal, trachea midline, no adenopathy. Heart--normal S1 and S2. No murmurs, rubs or gallops. Lungs--clear bilaterally, no respiratory distress, no accessory muscle use. Abdomen--normal bowel sounds and soft. Extremities--no cyanosis or clubbing. bilateral leg edema. Dermatologic--cellulitic changes, some pustules on lower extremity Neurologic--cranial nerves II through XII grossly intact. Rheumatologic--normal range of motion. Psychiatric--normal affect. Results & Data Results & Data Vital Signs (Past 12 Hours) Vital Signs Temp Pulse Pulse Resp BP BP Pulse Ox 02/22/24 11:39 98.1 F 95 H 20 134/79 95 02/22/24 08:24 02/22/24 07:48 98.2 F 95 H 18 109/75 93 02/22/24 07:04 81 02/22/24 04:00 98.2 F 87 18 117/71 93 O2 Del Method 02/22/24 11:39 Room Air 02/22/24 08:24 Room Air 02/22/24 07:48 Room Air 02/22/24 07:04 02/22/24 04:00 Room Air PG Care Time/CCT Total # of Minutes Spent Total Time Spent with Patient: Total time spent is greater than 50% in coordination of care (as documented) at patient's floor/unit and/or counseling patient: Coding Level of Care Code 44093 SUB INP/OBS CARE MIN Diagnoses Chronic heart failure with preserved ejection fraction I50.32 Heart failure chronicity: chronic Cellulitis L03.90 Laterality: right Site of cellulitis of extremity: lower extremity DM II (diabetes mellitus, type II), controlled E11.9 COPD (chronic obstructive pulmonary disease) J44.9 COPD type: unspecified COPD Tobacco use disorder F17.200 Anemia D64.9 Time Spent (min) 35 (1) Heart failure with preserved ejection fraction Heart failure chronicity: chronic Qualified Code(s): I50.32 - Chronic diastolic (congestive) heart failure (2) Cellulitis Laterality: right Site of cellulitis of extremity: lower extremity (4) COPD (chronic obstructive pulmonary disease) COPD type: unspecified COPD Qualified Code(s): J44.9 - Chronic obstructive pulmonary disease, unspecified
[2024-02-22] MEDS: GLUCOSE 40% GEL 15 GM TUBE PO PRN (23:45)
[2024-02-23] MEDS: CARBOHYDRATES FOR HYPOGLYCEMIA PO PRN (03:27)
[2024-02-23 08:38] LABS: BUN Creatinine Ratio 26.7 (10-20); Calcium 9.1 mg/dl (8.6-10.3); Creatinine Clr Calc Pharmacy 81.4 ml/min; Potassium 3.7 mmol/L (3.5-5.1)
[2024-02-23] MEDS: LANTUS PER UNIT CHARGE SQ SCH (09:22)
--- NOTE | 2024-02-23 11:39 | Hospitalist Progress Note ---
Date of Service February 23, 2024 Assessment & Plan (1) Heart failure with preserved ejection fraction: Plan: Presented with dyspnea and bilateral lower extremity edema; improving - CXR on admission showing cardiomegaly and pulmonary edema - Last echocardiogram on 07/2023 showed EF 60 to 65%, moderate LVH - BNP 239 on admission - Heart healthy, fluid restricted diet - promote leg elevation, and frequent movement - Continue 25 mg Spironolactone po daily -Patient said her urine output has been poor despite being on 4mg Bumex BID -I noticed that urine output was zero, but this is as a result of improper monitoring Will urge the nurses to strictly Monitor I/O, daily weights (2) Cellulitis: Plan: RLE redness - concern for cellulitis vs chronic venous stasis some pustuluar areas as well - RLE duplex negative for DVT - leukocytosis; but chronic given steroid use and multiple myeloma history - afebrile - Ceftriaxone -> Keflex 500 po QID for a total of 7 days (last dose 02/25 PM) - Ice/ cold pack prn (3) DM II (diabetes mellitus, type II), controlled: Plan: - DM diet - Accuchek ACHS with SSI - Lantus 68 Units daily - On Ozempic weekly per medication list - A1C 8.3 - discontinued pharmacy consult (4) COPD (chronic obstructive pulmonary disease): Plan: stable, not acute exacerbation (chronic hypoxic resp failure) - Continue Trelegy qAM - Continue Levalbuterol and Atrovent q6h PRN for SOB - Patient has been on prednisone, and at last d/c from hospital 2 weeks ago dose changed to 5 mg daily; will continue this for now with goal to wean off slowly- has been on steroids chronically for over a year - BiPAP overnight (5) Tobacco use disorder: Plan: - declines need for nicotine patch at this time (6) Anemia: Plan: ABLA with leukocytosis History of multiple myeloma and stem cell transplant - ABLA given recent rectal bleeding on previous admission - Declined EGD/colonoscopy on previous admission - hemoglobin currently 9.2 - to have outpatient follow-up with oncology although with recurrent admissions has been unable to make appointments - iron panel with AM labs - restarted on once daily Lovenox given PE and MM history; although closely monitor hemoglobin given recent GI bleed Plan Chronic stable diagnoses: Opioid use disorder - Continue Buprenorphine/Naloxone 8-2 mg daily Gout - continue allopurinol; uric acid and CRP WNL Anxiety - continue Seroquel, Celexa, and Xanax prn VTE ppx: Lovenox 40mg Q24H; low dose given recent GI bleed, unable to tolerate SCDs Diet: diabetes, heart healthy, fluid restricted 2000 mL diet Code status: Full Dispo: MedSurg with telemetry, hopefully d/c in the next 48 hrs Admission and Anticipated Discharge Date Admission Date: February 19, 2024 Subjective patient seen and examined, complained of headache and said oxycodone usually helps, says she is not urinating enough Review of Systems Review of Systems: All systems reviewed are negative, apart from the ones contained in the history. Physical Exam Physical Exam: The patient is awake, alert and oriented 3, well developed and well nourished, normocephalic and atraumatic, lying in bed and in no acute distress. HEENT--PERRL, EOMI, mucous membranes and oropharynx mildly dry Neck--supple. No JVD. No bruits. Thyroid normal, trachea midline, no adenopathy. Heart--normal S1 and S2. No murmurs, rubs or gallops. Lungs--clear bilaterally, no respiratory distress, no accessory muscle use. Abdomen--normal bowel sounds and soft. Extremities--no cyanosis or clubbing. bilateral leg edema. Dermatologic--cellulitic changes, some pustules on lower extremity Neurologic--cranial nerves II through XII grossly intact. Rheumatologic--normal range of motion. Psychiatric--normal affect. Results & Data Results & Data Vital Signs (Past 12 Hours) Vital Signs Temp Pulse Pulse Resp BP Pulse Ox O2 Del Method 02/23/24 07:41 97.9 F 78 20 121/78 92 Room Air 02/23/24 07:40 Room Air 02/23/24 07:16 88 02/23/24 03:34 98.1 F 88 20 125/72 96 Room Air 02/23/24 02:54 68 13 98 O2 Flow Rate 02/23/24 07:41 02/23/24 07:40 02/23/24 07:16 02/23/24 03:34 02/23/24 02:54 2 PG Care Time/CCT Total # of Minutes Spent Total Time Spent with Patient: Total time spent is greater than 50% in coordination of care (as documented) at patient's floor/unit and/or counseling patient: Coding Level of Care Code 78892 SUB INP/OBS CARE 35MIN Diagnoses Chronic heart failure with preserved ejection fraction I50.32 Heart failure chronicity: chronic Cellulitis L03.90 Laterality: right Site of cellulitis of extremity: lower extremity DM II (diabetes mellitus, type II), controlled E11.9 COPD (chronic obstructive pulmonary disease) J44.9 COPD type: unspecified COPD Tobacco use disorder F17.200 Anemia D64.9 Time Spent (min) 35 (1) Heart failure with preserved ejection fraction Heart failure chronicity: chronic Qualified Code(s): I50.32 - Chronic diastolic (congestive) heart failure (2) Cellulitis Laterality: right Site of cellulitis of extremity: lower extremity (4) COPD (chronic obstructive pulmonary disease) COPD type: unspecified COPD Qualified Code(s): J44.9 - Chronic obstructive pulmonary disease, unspecified
[2024-02-23] MEDS: oxyCODONE HCL IR 5 MG TAB (IMMEDIATE RELEASE) PO STA (11:45)
[2024-02-24 07:02] LABS: BUN Creatinine Ratio 24.1 (10-20); Calcium 9.1 mg/dl (8.6-10.3); Creatinine Clr Calc Pharmacy 77.8 ml/min; Potassium 3.9 mmol/L (3.5-5.1)
--- NOTE | 2024-02-24 07:47 | Hospitalist Progress Note ---
Date of Service February 24, 2024 Assessment & Plan (1) Heart failure with preserved ejection fraction: Plan: acute on chronic HFpEF Presented with dyspnea and bilateral lower extremity edema; improving - CXR on admission showing cardiomegaly and pulmonary edema - Heart healthy, fluid restricted diet - Continue 25 mg Spironolactone po daily -Bumex 4 mg bid iv weight down 9 pounds (2) Cellulitis: Plan: RLE redness - chronic venous stasis - RLE duplex negative for DVT - leukocytosis; but chronic given steroid use and multiple myeloma history - afebrile - Ceftriaxone -> Keflex 500 po QID for a total of 7 days (last dose 02/25 PM), legs improved - Ice/ cold pack prn (3) DM II (diabetes mellitus, type II), controlled: Plan: - DM diet - Accuchek ACHS with SSI - lantus reduced to 50 continus ssi - On Ozempic weekly per medication list, on hold - A1C 8.3 (4) COPD (chronic obstructive pulmonary disease): Plan: stable, not acute exacerbation (chronic hypoxic resp failure) - Continue Trelegy qAM - Continue Levalbuterol and Atrovent q6h PRN for SOB - Patient has been on prednisone, and at last d/c from hospital 2 weeks ago dose changed to 5 mg daily; will continue this for now with goal to wean off slowly- has been on steroids chronically for over a year - BiPAP overnight (5) Tobacco use disorder: Plan: - declines need for nicotine patch at this time (6) Anemia: Plan: ABLA with leukocytosis History of multiple myeloma and stem cell transplant - ABLA given recent rectal bleeding on previous admission - Declined EGD/colonoscopy on previous admission - hemoglobin currently 9.2 - to have outpatient follow-up with oncology although with recurrent admissions has been unable to make appointments - iron panel low will give oral iron - restarted on once daily Lovenox given PE and MM history; although closely monitor hemoglobin given recent GI bleed Plan Chronic stable diagnoses: Opioid use disorder - Continue Buprenorphine/Naloxone 8-2 mg daily Gout - continue allopurinol; uric acid and CRP WNL Anxiety - continue Seroquel, Celexa, and Xanax prn VTE ppx: Lovenox 40mg Q24H; low dose given recent GI bleed, unable to tolerate SCDs Diet: diabetes, heart healthy, fluid restricted 2000 mL diet Code status: Full Admission and Anticipated Discharge Date Admission Date: February 19, 2024 Subjective Pt is tearful still not with defined plan for living, admits to eating out or ordering food, trying to stop smoking still concerned about leg swelling Physical Exam Physical Exam: 1-2+ swelling to legs , some open areas venous stasis changed, does not seem infected lungs are clear with diminished air movement cw copd Results & Data Results & Data Vital Signs (Past 12 Hours) Vital Signs Temp Pulse Pulse Resp BP Pulse Ox O2 Del Method 02/24/24 07:30 Room Air 02/24/24 07:14 102 H 02/24/24 03:37 99.0 F 94 H 18 106/68 95 Room Air 02/24/24 00:08 90 02/23/24 23:23 99 H 12 96 02/23/24 22:55 98.8 F 98 H 18 104/64 96 Room Air 02/23/24 22:01 Room Air FiO2 02/24/24 07:30 02/24/24 07:14 02/24/24 03:37 02/24/24 00:08 02/23/24 23:23 21 02/23/24 22:55 02/23/24 22:01 Laboratory Results reviewed chemistry mild alkalosis reviewed poc glucose acceptable control PG Care Time/CCT Total # of Minutes Spent Total Time Spent with Patient: Total time spent is greater than 50% in coordination of care (as documented) at patient's floor/unit and/or counseling patient: Coding Level of Care Code 63172 SUB INP/OBS CARE 3/50MIN Diagnoses Chronic heart failure with preserved ejection fraction I50.32 Heart failure chronicity: chronic Cellulitis L03.90 Laterality: right Site of cellulitis of extremity: lower extremity DM II (diabetes mellitus, type II), controlled E11.9 COPD (chronic obstructive pulmonary disease) J44.9 COPD type: unspecified COPD Tobacco use disorder F17.200 Anemia D64.9 (1) Heart failure with preserved ejection fraction Heart failure chronicity: chronic Qualified Code(s): I50.32 - Chronic diastolic (congestive) heart failure (2) Cellulitis Laterality: right Site of cellulitis of extremity: lower extremity (4) COPD (chronic obstructive pulmonary disease) COPD type: unspecified COPD Qualified Code(s): J44.9 - Chronic obstructive pulmonary disease, unspecified
[2024-02-24] MEDS: FERROUS GLUCONATE 324 MG TAB PO SCH (09:06)
[2024-02-24] MEDS: SOD PHOSPHATE/SOD BIPHOSPHATE ENEMA 132 ML BTL PR ONE (17:15)
--- NOTE | 2024-02-25 16:15 | Hospitalist Progress Note ---
Date of Service February 25, 2024 Assessment & Plan (1) Heart failure with preserved ejection fraction: Plan: acute on chronic HFpEF Presented with dyspnea and bilateral lower extremity edema; improving - CXR on admission showing cardiomegaly and pulmonary edema - Heart healthy, fluid restricted diet - Continue 25 mg Spironolactone po daily -Bumex 4 mg bid iv, one dose metolazone given before pm bumex 02/24 due to swelling and legs weeping weight down since admission (2) Cellulitis: Plan: RLE redness - chronic venous stasis - RLE duplex negative for DVT - leukocytosis; but chronic given steroid use and multiple myeloma history - afebrile - Ceftriaxone -> Keflex 500 po QID for a total of 7 days (last dose 02/25 PM), legs improved - Ice/ cold pack prn (3) DM II (diabetes mellitus, type II), controlled: Plan: - DM diet - Accuchek ACHS with SSI - lantus reduced to 50 continus ssi - On Ozempic weekly per medication list, on hold - A1C 8.3 (4) COPD (chronic obstructive pulmonary disease): Plan: stable, not acute exacerbation (chronic hypoxic resp failure) - Continue Trelegy qAM - Continue Levalbuterol and Atrovent q6h PRN for SOB - Patient has been on prednisone, and at last d/c from hospital 2 weeks ago dose changed to 5 mg daily; will continue this for now with goal to wean off slowly- has been on steroids chronically for over a year - BiPAP overnight (5) Tobacco use disorder: Plan: - declines need for nicotine patch at this time (6) Anemia: Plan: ABLA with leukocytosis History of multiple myeloma and stem cell transplant - ABLA given recent rectal bleeding on previous admission - Declined EGD/colonoscopy on previous admission - hemoglobin currently 9.2 - to have outpatient follow-up with oncology although with recurrent admissions has been unable to make appointments - iron panel low will give oral iron - restarted on once daily Lovenox given PE and MM history; although closely monitor hemoglobin given recent GI bleed Plan Chronic stable diagnoses: Opioid use disorder - Continue Buprenorphine/Naloxone 8-2 mg daily Gout - continue allopurinol; uric acid and CRP WNL Anxiety - continue Seroquel, Celexa, and Xanax prn VTE ppx: Lovenox 40mg Q24H; low dose given recent GI bleed, unable to tolerate SCDs Diet: diabetes, heart healthy, fluid restricted 2000 mL diet Code status: Full Admission and Anticipated Discharge Date Admission Date: February 19, 2024 Subjective pt points out leg swelling and some weeping, this is dependent edema, chronic stasis, still no defined plan for living transitions seems to continue to be in denial regarding her decline in health Physical Exam Physical Exam: legs with 1-2 + edema, small open areas, cellulitis resolved lungs diminished but reasonable air movement no wheeze or rales Results & Data Results & Data Vital Signs (Past 12 Hours) Vital Signs Temp Pulse Pulse Resp BP Pulse Ox O2 Del Method 02/25/24 15:45 98.1 F 95 H 18 111/73 92 Room Air 02/25/24 15:27 98.4 F 98 H 20 102/68 94 Room Air 02/25/24 12:19 17 93 Room Air 02/25/24 11:07 98.1 F 93 H 18 107/68 93 Room Air 02/25/24 08:03 98.4 F 98 H 20 122/72 94 Room Air 02/25/24 08:00 97 H 02/25/24 08:00 Room Air 02/25/24 07:00 90 PG Care Time/CCT Total # of Minutes Spent Total Time Spent with Patient: Total time spent is greater than 50% in coordination of care (as documented) at patient's floor/unit and/or counseling patient: Coding Level of Care Code 61759 SUB INP/OBS CARE 2/35MIN Diagnoses Chronic heart failure with preserved ejection fraction I50.32 Heart failure chronicity: chronic Cellulitis L03.90 Laterality: right Site of cellulitis of extremity: lower extremity DM II (diabetes mellitus, type II), controlled E11.9 COPD (chronic obstructive pulmonary disease) J44.9 COPD type: unspecified COPD Tobacco use disorder F17.200 Anemia D64.9 (1) Heart failure with preserved ejection fraction Heart failure chronicity: chronic Qualified Code(s): I50.32 - Chronic diastolic (congestive) heart failure (2) Cellulitis Laterality: right Site of cellulitis of extremity: lower extremity (4) COPD (chronic obstructive pulmonary disease) COPD type: unspecified COPD Qualified Code(s): J44.9 - Chronic obstructive pulmonary disease, unspecified
[2024-02-25] MEDS: metOLazone 5 MG TABLET PO ONE (16:51)
[2024-02-26 06:26] LABS: BUN Creatinine Ratio 32.1 (10-20); Creatinine Clr Calc Pharmacy 75.6 ml/min; Magnesium 1.8 mg/dl (1.7-2.4); Potassium 3.3 mmol/L (3.5-5.1)
[2024-02-26] MEDS: ONDANSETRON INJ 2 MG/ML 2 ML VIAL IV PRN (08:34)
[2024-02-26] MEDS ORDERED: POTASSIUM CHLORIDE / WTR 10 MEQ/100 ML PLCT IV SCH (08:45)
[2024-02-26] MEDS: POTASSIUM CHLORIDE 10 MEQ TABCR PO STA (09:04)
[2024-02-26] MEDS: POTASSIUM CHLORIDE CRTAB 20 MEQ TABCR PO ONE (11:28)
--- NOTE | 2024-02-26 18:46 | Hospitalist Progress Note ---
Date of Service February 26, 2024 Assessment & Plan (1) Heart failure with preserved ejection fraction: Plan: Acute exacerbation of chronic diastolic CHF with preserved LV EF 60-65% (as noted on 07/28/2023, 3:58pm TTE, CARDS Dr. Jay Vo). RESOLVING with adherence to 2 gram Na diet, daily weights, strict I/O, fluid restriction to 2 liters per 24 hours, bumex 4mg IV bid (day #1 on 02/21/2024, 5:00pm), and spironolactone 25mg PO qam (day #1 on 02/20/2024, 9:00am). s/p metolazone 5mg PO x 1 dose (02/25/2024, 4:12pm). (2) Cellulitis: Plan: Patient's RLE (lower anterior dailey) is noted for a solitary, 3 cm diameter circular area of denuded skin with no surrounding/underlying erythema, edema, induration, warmth, tenderness, crepitus, fluctuance, discharge (sanguineous, serous, suppurative), or lymphangitic streaking. I am not convinced that patient suffers from RLE (lower anterior dailey) cellulitis. Patient has been transitioned from ceftriaxone 2g IV daily (day #1 on 02/20/2024, 9:00am) to cephalexin 500mg PO qid (day #1 on 02/22/2024, 9:00am). Hence, I have opted to D/C cephalexin 500mg PO qid on 02/26/2024, 7:06pm. (3) DM II (diabetes mellitus, type II), controlled: Plan: Long-term glycemic control is poor with HbA1c 8.3% (01/19/2024, 4:43am). cf., glucose 158 mg/dL (02/19/2024, 5:04pm). cf., glucose 170 mg/dL (02/20/2024, 9:16am). cf., glucose 109 mg/dL (02/21/2024, 5:51am). cf., glucose 121 mg/dL (02/22/2024, 6:38am). cf., glucose 81 mg/dL (02/23/2024, 7:42am). cf., glucose 141 mg/dL (02/24/2024, 5:52am). cf., glucose 149 mg/dL (02/26/2024, 5:39am). Continue carbohydrate consistent diet, lantus 50 units SQ daily, aspart insulin sliding scale qac + qhs, and POC glucose qac + qhs. (4) COPD (chronic obstructive pulmonary disease): Plan: NOT acute exacerbation (chronic hypoxic resp failure) as patient has no complaints of cough or wheeze on 02/26/2024. - Continue maintenance therapy utilizing prednisone 5mg PO daily (as an ultra- slow steroid taper as patient has been on prednisone for > 12 months), umeclidinium 62.5ug / vilanterol 25ug per puff, 1 puff PO daily, levalbuterol 0.63mg/neb q6 prn SOB/wheeze, atrovent 0.5mg/neb q6 prn SOB/wheeze, and fluticasone 200ug/puff, 1 puff PO daily. (5) Tobacco use disorder: Plan: Smoking cessation counselling 16 minutes given. Patient agrees to avoid smoking tobacco while in [facility]. Patient refuses offer of nicotine replacement utilizing nicotine patch, stating, "I can quit smoking by myself." (6) Anemia: Plan: Acute blood loss anemia (with recent rectal bleed on prior admission, 01/17/2024 - 02/05/2024) with chronic leukocytosis with WBC ranging from 12.01 (05/02/2022, 9:58am) to 20.28 (10/15/2023, 6:35am) in patient with multiple myeloma, s/p autologous stem cell transplant. - of note,patient declined EGD/colonoscopy on prior admission, 01/17/2024 - 02/05/2024, and on current admission, 02/19/2024 - present. - cf., Hb 10.0 g/dL (02/19/2024, 5:04pm). - cf., Hb 10.3 g/dL (02/20/2024, 9:16am). - cf., Hb 9.2 g/dL (02/21/2024, 5:51am). - cf., Hb 10.1 g/dL (02/22/2024, 6:38am). - to have outpatient follow-up with oncology although with recurrent admissions has been unable to make appointments - patient reports no mucosal bleeding since admission date 02/19/2024; continue ferrous gluconate 324mg PO bid. - patient currently receives lovenox 40mg SQ daily given PE and MM history; check Hb level periodically in order to conserve and preserve patient's srinivas blood supply Plan Chronic stable diagnoses: Opioid use disorder - Continue Buprenorphine/Naloxone 8-2 mg daily Gout - continue allopurinol; uric acid and CRP WNL Anxiety - continue Seroquel, Celexa, and Xanax prn VTE ppx: Lovenox 40mg Q24H; low dose given recent GI bleed, unable to tolerate SCDs Diet: diabetes, heart healthy, fluid restricted 2000 mL diet Code status: FULL CODE; ACLS as required Admission and Anticipated Discharge Date Admission Date: February 19, 2024 Subjective "I feel weak. I have no energy to get up and move around." Review of Systems Review of Systems: Negative for antecedent or coincident fevers, chills, sweats, cough, wheeze, sore throat, hemoptysis, chest pains, palpitations, pleurisy, nausea, vomiting, diarrhea, abdominal pain, pelvic pain, flank pain, back pain, shoulder pain, hematemesis, hematochezia, melena, hematuria, dysuria, frequency, urgency, headaches, dizziness, lightheadedness, visual changes, hearing changes, falls, sick contacts, trauma, travel history, or food/drug ingestions novel or new. All other review systems are reported as negative by the patient on 02/26/2024. Physical Exam Physical Exam: General: comfortable, coherent, cooperative. Wide awake and alert. Not confused, lethargic, or obtunded. Patient speaks in complete, fluent, and articulate sentences without pause, interruption, cough, or wheeze. HEENT: NC/AT. EOMI. PERRL. No nystagmus, gaze paresis, anisocoria, miosis, chemosis, mydriasis, hyphema, scleral injection, conjunctivitis, or pterygium. No otorrhea or rhinorrhea. No pharyngeal discharge or erythema. Neck: Supple, no stridor, bruit, goiter, JVD, or HJR. Chest: Symmetric rise and fall with respirations. Lungs: CTA/P. No audible expiratory wheeze, egophony, pectoriloquy, increase in tactile fremitus, or flatness/dullness to percussion at the bases. Heart: RRR, S1 and S2 noted. No S3 or S4 summation gallop. Grade II/ early systolic murmur @ LLSB, without radiation to the carotids, axilla, or back, and which remains invariant in regards to the respiratory cycle. Abdomen: Soft, NT, ND, no organomegaly. Bowel sounds auscultated in all 4 quadrants. Extremities: No clubbing, cyanosis, or edema. 2+ pedal pulses bilaterally. Skin: No decubitus ulcer, exanthem, or enanthem. Neurology: Alert and oriented in regards to person, place, time, or situation. 5/5 motor strength in all 4 extremities, both proximally and distally. Urology: No barnes catheter. No urethral discharge. Results & Data Results & Data Vital Signs (Past 12 Hours) Vital Signs Temp Pulse Pulse Resp BP Pulse Ox O2 Del Method 02/26/24 15:07 36.4 C L 102 H 20 116/81 94 Room Air 02/26/24 14:45 104 H 02/26/24 11:51 36.5 C 113 H 20 114/80 94 Room Air 02/26/24 07:58 36.8 C 93 H 18 137/80 94 Room Air 02/26/24 07:50 Room Air 02/26/24 07:00 93 H Laboratory Results K 4.3 (02/19/2024, 5:04pm). K 3.9 (02/20/2024, 9:16am). K 3.8 (02/21/2024, 5:51am). K 3.5 (02/22/2024, 6:38am). K 3.7 (02/23/2024, 7:42am). K 3.9 (02/24/2024, 5:52am). K 3.3 (02/26/2024, 5:39am). glucose 156 (02/25/2024, 11:52am). glucose 181 (02/25/2024, 5:04pm). glucose 252 (02/25/2024, 8:47pm). glucose 149 (02/26/2024, 7:47am). glucose 238 (02/26/2024, 12:01pm). glucose 235 (02/26/2024, 4:46pm). BNP 239 pg/mL (02/19/2024, 5:04pm). cf., BNP range, 197 pg/mL (12/13/2023, 4:21pm) to 104 pg/mL (01/17/2024, 6:40pm). Diagnostic Findings RLE venous doppler (02/20/2024, 7:48pm): No DVT. Portable CXR (02/19/2024, 5:40pm): 1. Cardiomegaly with pulmonary vascular congestion. 2. LLL atelectasis. No effusion or pneumothorax (by my review). TTE (07/28/2023, 3:58pm): 1. LV EF 60-65%. Moderate concentric LVH. 2. RV systolic function qualitatively normal. 3. LA / RA not well visualized. 4. AV, MV, PV, TV not well visualized. 5. No pericardial effusion. (as per CARDS Dr. Jay Vo). PG Care Time/CCT Total # of Minutes Spent Total Time Spent with Patient: Total time spent is greater than 50% in coordination of care (as documented) at patient's floor/unit and/or counseling patient: Coding Level of Care Code 28829 SUB INP/OBS CARE 2/35MIN Diagnoses Chronic heart failure with preserved ejection fraction I50.32 Heart failure chronicity: chronic Cellulitis L03.90 Laterality: right Site of cellulitis of extremity: lower extremity DM II (diabetes mellitus, type II), controlled E11.9 COPD (chronic obstructive pulmonary disease) J44.9 COPD type: unspecified COPD Tobacco use disorder F17.200 Anemia D64.9 (1) Heart failure with preserved ejection fraction Heart failure chronicity: chronic Qualified Code(s): I50.32 - Chronic diastolic (congestive) heart failure (2) Cellulitis Laterality: right Site of cellulitis of extremity: lower extremity (4) COPD (chronic obstructive pulmonary disease) COPD type: unspecified COPD Qualified Code(s): J44.9 - Chronic obstructive pulmonary disease, unspecified
[2024-02-27 08:48] LABS: Hematocrit (blood only) 38.2 % (37.0-47.0); Hemoglobin 11.5 g/dl (12.0-16.0); Mean Corpuscular Hemoglobin 24.8 pg (25.0-34.0); Mean Corpuscular Hgb Conc 30.1 g/dL (32.0-36.0); Mean Corpuscular Volume 82.3 fL (80.0-100.0); Mean Platelet Volume 10.4 fL (9.4-12.4); Nucleated RBC # (auto) 0.03 K/uL (0.00-0.12); Nucleated RBC % (auto) 0.2 %; Platelet Count 427 K/uL (130-400); RDW Coefficient of Variation 18.6 % (11.5-14.5); RDW Standard Deviation 53.1 fL (36.4-46.3); Red Blood Count 4.64 M/uL (4.20-5.40); White Blood Count 14.96 K/ul (4.8-10.8)
[2024-02-27 09:13] LABS: BUN Creatinine Ratio 29.3 (10-20); Calcium 9.5 mg/dl (8.6-10.3); Creatinine Clr Calc Pharmacy 65.9 ml/min; Potassium 3.6 mmol/L (3.5-5.1)
[2024-02-27] MEDS: KETOROLAC TROMETHAMINE 15 MG/ML VIAL IV PRN (13:14)
--- NOTE | 2024-02-27 15:13 | Hospitalist Progress Note ---
Date of Service February 27, 2024 Assessment & Plan (1) Heart failure with preserved ejection fraction: Plan: Acute exacerbation of chronic diastolic CHF with preserved LV EF 60-65% (as noted on 07/28/2023, 3:58pm TTE, CARDS Dr. Jay Vo) with dry baseline weight of 198 pounds at home. RESOLVING well with adherence to 2 gram Na diet, daily weights, strict I/O, fluid restriction to 2 liters per 24 hours, bumex 4mg IV bid (day #1 on 02/21/2024, 5:00pm), and spironolactone 25mg PO qam (day #1 on 02/20/2024, 9:00am). s/p metolazone 5mg PO x 1 dose (02/25/2024, 4:12pm). Patient weights 204.2 pounds on 02/27/2024. Subsequently, I opted to D/C fluid restriction to 2 liters per 24 hours on 02/27/2024, 3:15pm. (2) Cellulitis: Plan: Patient's RLE (lower anterior dailey) is noted for a solitary, 3 cm diameter circular area of denuded skin with no surrounding/underlying erythema, edema, induration, warmth, tenderness, crepitus, fluctuance, discharge (sanguineous, serous, suppurative), or lymphangitic streaking. I am not convinced that patient suffers from RLE (lower anterior dailey) cellulitis. Patient has been transitioned from ceftriaxone 2g IV daily (day #1 on 02/20/2024, 9:00am) to cephalexin 500mg PO qid (day #1 on 02/22/2024, 9:00am). Hence, I discontinued cephalexin 500mg PO qid on 02/26/2024, 7:06pm. (3) DM II (diabetes mellitus, type II), controlled: Plan: Long-term glycemic control is poor with HbA1c 8.3% (01/19/2024, 4:43am). cf., glucose 158 mg/dL (02/19/2024, 5:04pm). cf., glucose 170 mg/dL (02/20/2024, 9:16am). cf., glucose 109 mg/dL (02/21/2024, 5:51am). cf., glucose 121 mg/dL (02/22/2024, 6:38am). cf., glucose 81 mg/dL (02/23/2024, 7:42am). cf., glucose 141 mg/dL (02/24/2024, 5:52am). cf., glucose 149 mg/dL (02/26/2024, 5:39am). cf., glucose 155 mg/dL (02/27/2024, 7:47am). Continue carbohydrate consistent diet, lantus 50 units SQ daily, aspart insulin sliding scale qac + qhs, and POC glucose qac + qhs. (4) COPD (chronic obstructive pulmonary disease): Plan: NOT acute exacerbation (chronic hypoxic resp failure) as patient has no complaints of cough or wheeze on 02/26/2024 - 02/27/2024. - Continue maintenance therapy utilizing prednisone 5mg PO daily (as an ultra- slow steroid taper as patient has been on prednisone for > 12 months), umeclidinium 62.5ug / vilanterol 25ug per puff, 1 puff PO daily, levalbuterol 0.63mg/neb q6 prn SOB/wheeze, atrovent 0.5mg/neb q6 prn SOB/wheeze, and fluticasone 200ug/puff, 1 puff PO daily. (5) Tobacco use disorder: Plan: Smoking cessation counselling 16 minutes given. Patient agrees to avoid smoking tobacco while in [facility]. Patient refuses offer of nicotine replacement utilizing nicotine patch, stating, "I can quit smoking by myself." (6) Anemia: Plan: Acute blood loss anemia (with recent rectal bleed on prior admission, 01/17/2024 - 02/05/2024) with chronic leukocytosis with WBC ranging from 12.01 (05/02/2022, 9:58am) to 20.28 (10/15/2023, 6:35am) in patient with multiple myeloma, s/p autologous stem cell transplant. - of note,patient declined EGD/colonoscopy on prior admission, 01/17/2024 - 02/05/2024, and on current admission, 02/19/2024 - present. - cf., Hb 10.0 g/dL (02/19/2024, 5:04pm). - cf., Hb 10.3 g/dL (02/20/2024, 9:16am). - cf., Hb 9.2 g/dL (02/21/2024, 5:51am). - cf., Hb 10.1 g/dL (02/22/2024, 6:38am). - cf., Hb 11.5 g/dL (02/27/2024, 7:47am). - to have outpatient follow-up with oncology although with recurrent admissions has been unable to make appointments - patient reports no mucosal bleeding since admission date 02/19/2024; continue ferrous gluconate 324mg PO bid. - patient currently receives lovenox 40mg SQ daily given PE and MM history; check Hb level periodically in order to conserve and preserve patient's srinivas blood supply Plan Chronic stable diagnoses: Opioid use disorder - Continue Buprenorphine/Naloxone 8-2 mg daily Gout - continue allopurinol; uric acid and CRP WNL Anxiety - continue Seroquel, Celexa, and Xanax prn VTE ppx: Lovenox 40mg Q24H; low dose given recent GI bleed, unable to tolerate SCDs Diet: diabetes, heart healthy, fluid restricted 2000 mL diet Code status: FULL CODE; ACLS as required Admission and Anticipated Discharge Date Admission Date: February 19, 2024 Subjective "I have a headache. All over. Toradol didn't help at all. No nausea or vomit. Vision is fine. My legs are swollen; can I have some bandages to wrap them up?" Review of Systems Review of Systems: Positive for generalized headache. Positive for bilateral dailey swelling. Negative for antecedent or coincident fevers, chills, sweats, cough, wheeze, sore throat, hemoptysis, chest pains, palpitations, pleurisy, nausea, vomiting, diarrhea, abdominal pain, pelvic pain, flank pain, back pain, shoulder pain, hematemesis, hematochezia, melena, hematuria, dysuria, frequency, urgency, headaches, dizziness, lightheadedness, visual changes, hearing changes, falls, sick contacts, trauma, travel history, or food/drug ingestions novel or new. All other review systems are reported as negative by the patient on 02/27/2024. Physical Exam Physical Exam: General: comfortable, coherent, cooperative. Wide awake and alert. Not confused, lethargic, or obtunded. Patient speaks in complete, fluent, and articulate sentences without pause, interruption, cough, or wheeze. HEENT: NC/AT. EOMI. PERRL. No nystagmus, gaze paresis, anisocoria, miosis, chemosis, mydriasis, hyphema, scleral injection, conjunctivitis, or pterygium. No otorrhea or rhinorrhea. No pharyngeal discharge or erythema. Neck: Supple, no stridor, bruit, goiter, JVD, or HJR. Chest: Symmetric rise and fall with respirations. Lungs: CTA/P. No audible expiratory wheeze, egophony, pectoriloquy, increase in tactile fremitus, or flatness/dullness to percussion at the bases. Heart: RRR, S1 and S2 noted. No S3 or S4 summation gallop. Grade II/ early systolic murmur @ LLSB, without radiation to the carotids, axilla, or back, and which remains invariant in regards to the respiratory cycle. Abdomen: Soft, NT, ND, no organomegaly. Bowel sounds auscultated in all 4 quadrants. Extremities: No clubbing, cyanosis. 2+ pitting pedal edema with extension to the bilateral lower shins, sparing the bilateral upper shins, knees, hips, thighs. 2+ pedal pulses bilaterally. Solitary, 3 cm diameter circular area of denuded skin with no surrounding/underlying erythema, edema, induration, warmth, tenderness, crepitus, fluctuance, discharge (sanguineous, serous, suppurative), or lymphangitic streaking. Skin: No decubitus ulcer, exanthem, or enanthem. Neurology: Alert and oriented in regards to person, place, time, or situation. 5/5 motor strength in all 4 extremities, both proximally and distally. Urology: No barnes catheter. No urethral discharge. Results & Data Results & Data Vital Signs (Past 12 Hours) Vital Signs Temp Pulse Pulse Resp BP Pulse Ox O2 Del Method 02/27/24 13:47 113 H 02/27/24 11:21 36.7 C 98 H 18 124/75 94 Room Air 02/27/24 08:00 36.5 C 102 H 20 108/75 93 Room Air 02/27/24 07:35 Room Air 02/27/24 07:00 98 H 02/27/24 04:08 36.9 C 93 H 20 102/65 92 Room Air PG Care Time/CCT Total # of Minutes Spent Total Time Spent with Patient: Total time spent is greater than 50% in coordination of care (as documented) at patient's floor/unit and/or counseling patient: Coding Level of Care Code 48369 SUB INP/OBS CARE MIN Diagnoses Chronic heart failure with preserved ejection fraction I50.32 Heart failure chronicity: chronic Cellulitis L03.90 Laterality: right Site of cellulitis of extremity: lower extremity DM II (diabetes mellitus, type II), controlled E11.9 COPD (chronic obstructive pulmonary disease) J44.9 COPD type: unspecified COPD Tobacco use disorder F17.200 Anemia D64.9 (1) Heart failure with preserved ejection fraction Heart failure chronicity: chronic Qualified Code(s): I50.32 - Chronic diastolic (congestive) heart failure (2) Cellulitis Laterality: right Site of cellulitis of extremity: lower extremity (4) COPD (chronic obstructive pulmonary disease) COPD type: unspecified COPD Qualified Code(s): J44.9 - Chronic obstructive pulmonary disease, unspecified
[2024-02-28 07:02] LABS: BUN Creatinine Ratio 41.1 (10-20); Calcium 9.4 mg/dl (8.6-10.3); Creatinine Clr Calc Pharmacy 64.4 ml/min; Potassium 3.1 mmol/L (3.5-5.1)
[2024-02-28] MEDS: oxyCODONE HCL IR 5 MG TAB (IMMEDIATE RELEASE) PO PRN (08:03)
[2024-02-28] MEDS ORDERED: POTASSIUM CHLORIDE CRTAB 20 MEQ TABCR PO STA (08:05)
[2024-02-28] MEDS: POTASSIUM CHLORIDE CRTAB 20 MEQ TABCR PO ONE (08:59)
--- NOTE | 2024-02-28 19:36 | Hospitalist Progress Note ---
Date of Service February 28, 2024 Assessment & Plan (1) Heart failure with preserved ejection fraction: Plan: Acute exacerbation of chronic diastolic CHF with preserved LV EF 60-65% (as noted on 07/28/2023, 3:58pm TTE, CARDS Dr. Jay Vo) with dry baseline weight of 198 pounds at home. RESOLVING well with adherence to 2 gram Na diet, daily weights, strict I/O, fluid restriction to 2 liters per 24 hours, bumex 4mg IV bid (day #1 on 02/21/2024, 5:00pm), and spironolactone 25mg PO qam (day #1 on 02/20/2024, 9:00am). s/p metolazone 5mg PO x 1 dose (02/25/2024, 4:12pm). Patient weighed 204.2 pounds on 02/27/2024. Subsequently, I opted to D/C fluid restriction to 2 liters per 24 hours on 02/27/2024, 3:15pm. Subsequently, patient weighs 207.9 pounds on 02/28/2024, but patient refuses to go back to fluid restriction of 2 liters per 24 hours on 02/28/2024. (2) Cellulitis: Plan: Patient's RLE (lower anterior dailey) is noted for a solitary, 3 cm diameter circular area of denuded skin with no surrounding/underlying erythema, edema, induration, warmth, tenderness, crepitus, fluctuance, discharge (sanguineous, serous, suppurative), or lymphangitic streaking. I am not convinced that patient suffers from RLE (lower anterior dailey) cellulitis. Patient was transitioned from ceftriaxone 2g IV daily (day #1 on 02/20/2024, 9:00am) to cephalexin 500mg PO qid (day #1 on 02/22/2024, 9:00am). Subsequently, I discontinued cephalexin 500mg PO qid on 02/26/2024, 7:06pm. Observe patient off antibiotics on 02/27/2024 and 02/28/2024. (3) DM II (diabetes mellitus, type II), controlled: Plan: Long-term glycemic control is poor with HbA1c 8.3% (01/19/2024, 4:43am). cf., glucose 158 mg/dL (02/19/2024, 5:04pm). cf., glucose 170 mg/dL (02/20/2024, 9:16am). cf., glucose 109 mg/dL (02/21/2024, 5:51am). cf., glucose 121 mg/dL (02/22/2024, 6:38am). cf., glucose 81 mg/dL (02/23/2024, 7:42am). cf., glucose 141 mg/dL (02/24/2024, 5:52am). cf., glucose 149 mg/dL (02/26/2024, 5:39am). cf., glucose 155 mg/dL (02/27/2024, 7:47am). cf., glucose 188 mg/dL (02/28/2024, 6:20am). Continue carbohydrate consistent diet, lantus 50 units SQ daily, aspart insulin sliding scale qac + qhs, and POC glucose qac + qhs. (4) COPD (chronic obstructive pulmonary disease): Plan: NOT acute exacerbation (chronic hypoxic resp failure) as patient has no complaints of cough or wheeze on 02/26/2024 - 02/27/2024. - Continue maintenance therapy utilizing prednisone 5mg PO daily (as an ultra- slow steroid taper as patient has been on prednisone for > 12 months), umeclidinium 62.5ug / vilanterol 25ug per puff, 1 puff PO daily, levalbuterol 0.63mg/neb q6 prn SOB/wheeze, atrovent 0.5mg/neb q6 prn SOB/wheeze, and fluticasone 200ug/puff, 1 puff PO daily. (5) Tobacco use disorder: Plan: Smoking cessation counselling 16 minutes given. Patient agrees to avoid smoking tobacco while in [facility]. Patient refuses offer of nicotine replacement utilizing nicotine patch, stating, "I can quit smoking by myself." (6) Normocytic hypochromic anemia: Plan: Acute blood loss anemia (with recent rectal bleed on prior admission, 01/17/2024 - 02/05/2024) with chronic leukocytosis with WBC ranging from 12.01 (05/02/2022, 9:58am) to 20.28 (10/15/2023, 6:35am) in patient with multiple myeloma, s/p autologous stem cell transplant. - of note,patient declined EGD/colonoscopy on prior admission, 01/17/2024 - 02/05/2024, and on current admission, 02/19/2024 - present. - cf., Hb 10.0 g/dL (02/19/2024, 5:04pm). - cf., Hb 10.3 g/dL (02/20/2024, 9:16am). - cf., Hb 9.2 g/dL (02/21/2024, 5:51am). - cf., Hb 10.1 g/dL (02/22/2024, 6:38am). - cf., Hb 11.5 g/dL (02/27/2024, 7:47am). - to have outpatient follow-up with oncology although with recurrent admissions has been unable to make appointments - patient reports no mucosal bleeding since admission date 02/19/2024; continue ferrous gluconate 324mg PO bid. - patient currently receives lovenox 40mg SQ daily given PE and MM history; check Hb level periodically in order to conserve and preserve patient's srinivas blood supply (7) Hypokalemia: Plan: cf., K 3.3 mmol/L (02/26/2024, 5:39am). cf., K 3.6 mmol/L (02/27/2024, 7:47am). cf., K 3.1 mmol/L (02/28/2024, 6:20am). Patient already receives KCl 40meq PO daily; hence, I have ordered KCl 40meq PO x 1 dose (02/28/2024, 10:06am) and I will check repeat K level in the 02/29/2024 am. Plan Chronic stable diagnoses: Opioid use disorder - Continue Buprenorphine/Naloxone 8-2 mg daily Gout - continue allopurinol; uric acid and CRP WNL Anxiety - continue Seroquel, Celexa, and Xanax prn VTE ppx: Lovenox 40mg Q24H; low dose given recent GI bleed, unable to tolerate SCDs Diet: diabetes, heart healthy, fluid restricted 2000 mL diet Code status: FULL CODE; ACLS as required Admission and Anticipated Discharge Date Admission Date: February 19, 2024 Subjective "I feel ok today." Review of Systems Review of Systems: Positive for bilateral dailey swelling. Negative for antecedent or coincident fevers, chills, sweats, cough, wheeze, sore throat, hemoptysis, chest pains, palpitations, pleurisy, nausea, vomiting, diarrhea, abdominal pain, pelvic pain, flank pain, back pain, shoulder pain, hematemesis, hematochezia, melena, hematuria, dysuria, frequency, urgency, headaches, dizziness, lightheadedness, visual changes, hearing changes, falls, sick contacts, trauma, travel history, or food/drug ingestions novel or new. All other review systems are reported as negative by the patient on 02/28/2024. Constitutional: + weight gain; no fever and no chills Cardiovascular: + dyspnea at rest and + edema; no chest pain Integumentary: + erythema (RLE) Physical Exam Physical Exam: General: comfortable, coherent, cooperative. Wide awake and alert. Not confused, lethargic, or obtunded. Patient speaks in complete, fluent, and articulate sentences without pause, interruption, cough, or wheeze. HEENT: NC/AT. EOMI. PERRL. No nystagmus, gaze paresis, anisocoria, miosis, chemosis, mydriasis, hyphema, scleral injection, conjunctivitis, or pterygium. No otorrhea or rhinorrhea. No pharyngeal discharge or erythema. Neck: Supple, no stridor, bruit, goiter, JVD, or HJR. Chest: Symmetric rise and fall with respirations. Lungs: CTA/P. No audible expiratory wheeze, egophony, pectoriloquy, increase in tactile fremitus, or flatness/dullness to percussion at the bases. Heart: RRR, S1 and S2 noted. No S3 or S4 summation gallop. Grade II/ early systolic murmur @ LLSB, without radiation to the carotids, axilla, or back, and which remains invariant in regards to the respiratory cycle. Abdomen: Soft, NT, ND, no organomegaly. Bowel sounds auscultated in all 4 quadrants. Extremities: No clubbing, cyanosis. 2+ pitting pedal edema with extension to the bilateral lower shins, sparing the bilateral upper shins, knees, hips, thighs. 2+ pedal pulses bilaterally. Solitary, 3 cm diameter circular area of denuded skin with no surrounding/underlying erythema, edema, induration, warmth, tenderness, crepitus, fluctuance, discharge (sanguineous, serous, suppurative), or lymphangitic streaking. Skin: No decubitus ulcer, exanthem, or enanthem. Neurology: Alert and oriented in regards to person, place, time, or situation. 5/5 motor strength in all 4 extremities, both proximally and distally. Urology: No barnes catheter. No urethral discharge. Results & Data Results & Data Vital Signs (Past 12 Hours) Vital Signs Temp Pulse Pulse Resp BP Pulse Ox O2 Del Method 02/28/24 16:00 36.8 C 103 H 16 133/76 95 Room Air 02/28/24 14:00 99 H 02/28/24 12:00 36.5 C 96 H 16 112/83 92 Room Air 02/28/24 08:00 36.5 C 100 H 16 129/83 93 Room Air 02/28/24 07:50 Room Air Laboratory Results K 3.3 mmol/L (02/26/2024, 5:39am). K 3.6 mmol/L (02/27/2024, 7:47am). K 3.1 mmol/L (02/28/2024, 6:20am). PG Care Time/CCT Total # of Minutes Spent Total Time Spent with Patient: Total time spent is greater than 50% in coordination of care (as documented) at patient's floor/unit and/or counseling patient: Coding Level of Care Code 17273 SUB INP/OBS CARE 2/35MIN Diagnoses Chronic heart failure with preserved ejection fraction I50.32 Heart failure chronicity: chronic Cellulitis L03.90 Laterality: right Site of cellulitis of extremity: lower extremity DM II (diabetes mellitus, type II), controlled E11.9 COPD (chronic obstructive pulmonary disease) J44.9 COPD type: unspecified COPD Tobacco use disorder F17.200 Normocytic hypochromic anemia D50.9 Hypokalemia E87.6 (1) Heart failure with preserved ejection fraction Heart failure chronicity: chronic Qualified Code(s): I50.32 - Chronic diastolic (congestive) heart failure (2) Cellulitis Laterality: right Site of cellulitis of extremity: lower extremity (4) COPD (chronic obstructive pulmonary disease) COPD type: unspecified COPD Qualified Code(s): J44.9 - Chronic obstructive pulmonary disease, unspecified
[2024-02-29 06:30] LABS: BUN Creatinine Ratio 38.1 (10-20); Calcium 9.3 mg/dl (8.6-10.3); Creatinine Clr Calc Pharmacy 63.1 ml/min; Potassium 3.3 mmol/L (3.5-5.1)
[2024-02-29] MEDS: POTASSIUM CHLORIDE CRTAB 20 MEQ TABCR PO STA (08:02)
[2024-02-29] MEDS: COLCHICINE 0.6 MG TAB PO ONE (08:58)
--- NOTE | 2024-02-29 14:51 | Hospitalist Progress Note ---
Date of Service February 29, 2024 Assessment & Plan (1) Heart failure with preserved ejection fraction: Plan: acute on chronic HFpEF Presented with dyspnea and bilateral lower extremity edema; improving - CXR on admission showing cardiomegaly and pulmonary edema - Heart healthy, fluid restricted diet - Continue 25 mg Spironolactone po daily -Bumex 4 mg bid iv, one dose metolazone given before pm bumex 02/24 due to swelling and legs weeping weight down since admission, since is on max bumex in hospital will try or torsemide once daily at high dose upon discharge (2) Cellulitis: Plan: RLE redness - chronic venous stasis - RLE duplex negative for DVT - leukocytosis; but chronic given steroid use and multiple myeloma history - afebrile - Ceftriaxone -> Keflex 500 po QID for a total of 7 days (last dose 02/25 PM), legs improved - Ice/ cold pack prn (3) DM II (diabetes mellitus, type II), controlled: Plan: - DM diet - Accuchek ACHS with SSI - lantus reduced to 50 continus ssi - On Ozempic weekly per medication list, on hold - A1C 8.3 (4) COPD (chronic obstructive pulmonary disease): Plan: stable, not acute exacerbation (chronic hypoxic resp failure) - Continue Trelegy qAM - Continue Levalbuterol and Atrovent q6h PRN for SOB - Patient has been on prednisone, and at last d/c from hospital 2 weeks ago dose changed to 5 mg daily; will continue this for now with goal to wean off slowly- has been on steroids chronically for over a year - BiPAP overnight (5) Tobacco use disorder: Plan: - declines need for nicotine patch at this time (6) Anemia: Plan: ABLA with leukocytosis History of multiple myeloma and stem cell transplant - ABLA given recent rectal bleeding on previous admission - Declined EGD/colonoscopy on previous admission - hemoglobin currently 9.2 - to have outpatient follow-up with oncology although with recurrent admissions has been unable to make appointments - iron panel low will give oral iron - restarted on once daily Lovenox given PE and MM history; although closely monitor hemoglobin given recent GI bleed Plan Chronic stable diagnoses: Opioid use disorder - Continue Buprenorphine/Naloxone 8-2 mg daily Gout - continue allopurinol; uric acid and CRP WNL, did ask for once dose of colchicine 11/04/24 Anxiety - continue Seroquel, Celexa, and Xanax prn VTE ppx: Lovenox 40mg Q24H; low dose given recent GI bleed, unable to tolerate SCDs Diet: diabetes, heart healthy, fluid restricted 2000 mL diet Code status: Full Admission and Anticipated Discharge Date Admission Date: February 19, 2024 Subjective discussion of discharge, pt feels she needs another day legs are slightly more swollen but she is not willing to fluid restrict again discussed that she need frequent follow up or she will likely be a re admission especially if she is non compliant with diet and salt as she has been in the past Physical Exam Physical Exam: legs with 1-2 + edema, small open areas, healing cellulitis resolved lungs diminished but reasonable air movement no wheeze or rales Results & Data Results & Data Vital Signs (Past 12 Hours) Vital Signs Temp Pulse Pulse Resp BP Pulse Ox O2 Del Method 02/29/24 14:06 108 H 02/29/24 11:37 97.9 F 100 H 20 129/80 92 Room Air 02/29/24 09:30 Room Air 02/29/24 08:15 132/79 02/29/24 08:01 93 Room Air 02/29/24 07:59 97.9 F 100 H 16 99/68 L 88 L Room Air 02/29/24 07:12 92 H 02/29/24 03:40 97.9 F 92 H 16 112/73 90 Room Air Laboratory Results review chemistry- augment potassium oral route PG Care Time/CCT Total # of Minutes Spent Total Time Spent with Patient: Total time spent is greater than 50% in coordination of care (as documented) at patient's floor/unit and/or counseling patient: Coding Level of Care Code 47481 SUB INP/OBS CARE 3/50MIN Diagnoses Chronic heart failure with preserved ejection fraction I50.32 Heart failure chronicity: chronic Cellulitis L03.90 Laterality: right Site of cellulitis of extremity: lower extremity DM II (diabetes mellitus, type II), controlled E11.9 COPD (chronic obstructive pulmonary disease) J44.9 COPD type: unspecified COPD Tobacco use disorder F17.200 Anemia D64.9 (1) Heart failure with preserved ejection fraction Heart failure chronicity: chronic Qualified Code(s): I50.32 - Chronic diastolic (congestive) heart failure (2) Cellulitis Laterality: right Site of cellulitis of extremity: lower extremity (4) COPD (chronic obstructive pulmonary disease) COPD type: unspecified COPD Qualified Code(s): J44.9 - Chronic obstructive pulmonary disease, unspecified
[2024-03-01 07:11] LABS: BUN Creatinine Ratio 40.7 (10-20); Calcium 9.2 mg/dl (8.6-10.3); Potassium 3.3 mmol/L (3.5-5.1)
[2024-03-01 07:25] VITALS: RESP 18; TEMP 98.2; O2SAT 94
[2024-03-01] MEDS: TORSEMIDE 100 MG TAB PO SCH (07:53)
[2024-03-01 11:53] VITALS: BP 111/70; PULSE 93
--- NOTE | 2024-03-01 17:17 | Discharge Summary ---
Discharge Summary Date of Service March 01, 2024 Principal Dx & Hospital Course #1 = Principal Diagnosis (1) Heart failure with preserved ejection fraction: acute on chronic HFpEF Presented with dyspnea and bilateral lower extremity edema; improving - CXR on admission showing cardiomegaly and pulmonary edema - Heart healthy, fluid restricted diet - Continue 25 mg Spironolactone po daily -weight down since admission, since is on max bumex in hospital will try or torsemide once daily at high dose upon discharge (2) Cellulitis: RLE redness - chronic venous stasis - RLE duplex negative for DVT - leukocytosis; but chronic given steroid use and multiple myeloma history - afebrile - Ceftriaxone -> Keflex 500 po QID for a total of 7 days (last dose 02/25 PM), legs improved -elevated legs (3) DM II (diabetes mellitus, type II), controlled: - DM diet -returns to home lantus - On Ozempic weekly per medication list, - A1C 8.3 (4) COPD (chronic obstructive pulmonary disease): stable, not acute exacerbation (chronic hypoxic resp failure) - Continue Trelegy qAM - Continue Levalbuterol and Atrovent q6h PRN for SOB - Patient has been on prednisone, and at last d/c from hospital 2 weeks ago dose changed to 5 mg daily; will continue this for now with goal to wean off slowly- has been on steroids chronically for over a year - BiPAP overnight (5) Tobacco use disorder: - declines need for nicotine patch at this time (6) Anemia: ABLA with leukocytosis History of multiple myeloma and stem cell transplant - ABLA given recent rectal bleeding on previous admission - Declined EGD/colonoscopy on previous admission - hemoglobin currently 9.2 - to have outpatient follow-up with oncology although with recurrent admissions has been unable to make appointments - iron panel low will give oral iron - restarted on once daily Lovenox given PE and MM history; although closely monitor hemoglobin given recent GI bleed Plan Chronic stable diagnoses: Opioid use disorder - Continue Buprenorphine/Naloxone 8-2 mg daily Gout - continue allopurinol; uric acid and CRP WNL, did ask for once dose of colchicine 02/29/24 Anxiety - continue Seroquel, Celexa, and Xanax prn Code status: Full Notes For Next Care Provider this pt will need frequent follow up for her heart failure, will need to follow up her torsemide doses and labs Admission HPI Per Admitting Provider This is a 63-year-old female with an extensive medical history including heart failure with preserved ejection fraction, COPD, diabetes type 2, prior DVT/PE (currently not on any anticoagulation due to recent GI bleed), tobacco use disorder (currently still smoking 4 to 5 cigarettes daily), history of opioid use disorder, gout, anxiety/depression, and obesity hypoventilation syndrome (on CPAP) who comes into the ER from clinic with worsening lower extremity edema and increased shortness of breath. Patient's recent history is notable for admission here from 01/16 to 02/04 for multiple issues including metabolic encephalopathy possibly due to overmedication, acute blood loss anemia, acute exacerbation of CHF, and acute exacerbation of COPD. Today patient says that she was seen in outpatient clinic by her PCP as follow-up after visit on Thursday when her Bumex was increased due to increased bilateral lower extremity edema. At the visit today, she was noted to have worsening lower extremity edema in spite of the increased dose of Bumex, and was also noted to have increased shortness of breath. She had reported she has been using her CPAP during the day as well as at night. She had also reported increased shortness of breath and dyspnea on exertion with any kind of exertion. When I saw the patient her the history she provided was consistent with the report from her clinic. She denies any other acute complaints otherwise. Denies any chest pain. Denies palpitations. Denies increased cough or productive cough. Denies fevers, chills, nausea, vomiting, diarrhea. She does note that with the increased swelling in her legs, there is some clear fluid weeping bilaterally. She also notes some increased redness of the right lower extremity, which is new. Discharge Plan Discharge Items Patient Disposition: Home - Home Health Services Reason For Visit: SOB Discharge Diagnosis: excess fluid and swelling lower leg infection resolved copd pulmonary hypertension leading to leg swelling Activity: Resume your previous activity Non-emergency contact: Primary Care Provider and Specialist Call non-emergency contact if: your symptoms worsen Follow-up/Referrals: Radha Barboza PA-C [Primary Care Provider] - 03/08/24 1:00 pm Diet: Low Sodium (2gm) Addtl Attending Provider Instructions: Ms Monzon, Please be very careful on the salt in food and fluids you take in. Over the years your history of smoking has given you COPD and this has lead to some changes in the pressures in your pulmonary artery, leading to you having swollen legs, the "fluid pill" works on your kidneys but the real way to control your swelling is the amount of fluid and salt you take in and elevate your legs( plus compression stockings or tights can help too) Janae, you have been admitted 17 times to the hospital this year, without good attention to your health it may become a consideration to have you transition to a more supervised post discharge environment such as a personal fpc, assisted living or [facility] home environment It is important you have frequent contact with your primary care, weigh yourself daily and stop smoking. Please also continue to follow up with your oncologist for the changes that are seen in your rigth 4th rib and right hip on CT Addtl Desktop Support Consultant Provider Instructions: Call 911 and go to the Emergency Room if: * You have tightness or pain in your chest that does not go away with rest or Nitroglycerin * You are very short of breath even with rest Call your doctor if any of the following symptoms or problems start or get worse: * Shortness of breath or difficulty breathing * Wake up at night short of breath * Chest pain * Cough * Swelling of your hands, fee, or legs * More fatigued or tired with your normal activity * Palpitations - sudden fast heart beats WEIGHT * Weigh yourself every morning after using the bathroom. * Use the same scale. * Wear the same amount of clothing. * Write your weight down on your chart. * Call your doctor if you gain more than 2-3 pounds in 1-2 days. MEDICATIONS * Use this discharge instruction sheet for instructions. * Take your medications at the time your doctor ordered. * Do not skip a dose of your medicines. * If you miss a dose of medicine, take as soon as possible, but DO NOT DOUBLE A DOSE. * Read your medicine information when you get home. * Know all of the side effects of your medicine. * Call your doctor's office if you have any side effects. * Be sure all of your doctors know what medicine and herbs you take (including cold, flu, and herbal medicine). * Pain Medicine: If you do not get relief from your pain, please call your doctor for help. Take the following with you to your follow-up doctor appointments: * Weight Chart * Medication List * List of questions Do not drink excessive alcohol, beer or wine. Pending Studies at Discharge: No Stand-Alone Forms: My [facility], Smoking Cessation Medications and DC Order Prescriptions: New torsemide 100 mg Tablet 100 mg PO QAM Qty: 30 5RF Continued nystatin 100,000 unit/gram Powder 1 applic TOPICAL BID PRN (Reason: UNDER BREASTS NEEDED.) buprenorphine-naloxone 8-2 mg film 1 film sublingual DAILY levalbuterol HCl 1.25 mg/3 mL solution for nebulization 1.25 mg INHALATION TID PRN (Reason: Shortness Of Breath Or Wheezing) albuterol sulfate 90 mcg/actuation HFA aerosol inhaler 2 puff INHALATION UD PRN (Reason: Shortness Of Breath Or Wheezing) ipratropium bromide 0.02 % solution 3 ml continuous nebulization QID PRN (Reason: shortness of breath) Qty: 75 0RF calcium polycarbophil [Fiber (calcium polycarbophil)] 625 mg Tablet 625 mg PO QAM Qty: 30 0RF Rx Instructions: Over the counter quetiapine 200 mg tablet 100 mg PO HS Qty: 0 0RF fluticasone propionate [Flonase Allergy Relief] 50 mcg/actuation spray,suspension 1 spray intranasal BID Qty: 0 0RF Rx Instructions: administer into each nostril Trelegy Ellipta 200-62.5-25 mcg blister with device 1 ea INHALATION QAM Qty: 60 0RF levalbuterol tartrate 45 mcg/actuation HFA aerosol inhaler 2 puff INHALATION Q4 PRN (Reason: WHEEZE) Qty: 15 0RF insulin aspart U-100 [Novolog FlexPen U-100 Insulin] 100 unit/mL (3 mL) insulin pen 10 unit subcut TIDM ascorbic acid (vitamin C) [Vitamin C] 500 mg Tablet 1,000 mg PO DAILY Qty: 60 0RF citalopram 10 mg tablet 10 mg PO BID alprazolam 0.5 mg tablet 0.5 mg PO BID PRN (Reason: ANXIETY ) Rx Instructions: PT MAY TAKE AN EXTRA TAB FOR ACUTE PANIC ATTACKS- MAX 3 TABS DAILY ondansetron 4 mg tablet,disintegrating 4 mg PO Q8 PRN (Reason: NAUSEA/VOMITING) spironolactone 50 mg tablet 50 mg PO QAM insulin glargine [Lantus Solostar U-100 Insulin] 100 unit/mL (3 mL) insulin pen 50 unit SUBCUT QAM Changed potassium chloride [Klor-Con M20] 20 mEq tablet,ER particles/crystals 40 meq PO BID Qty: 0 0RF Rx Instructions: PATIENT HAS NOT BEEN TAKING DIRECTED; CONFUSED ABOUT DOSE colchicine 0.6 mg capsule 0.6 mg PO DAILY PRN (Reason: joint pain) Qty: 30 0RF Discontinued prednisone 10 mg tablet 10 mg PO DAILY bumetanide 2 mg tablet 4 mg PO BID Rx Instructions: EVERY MORNING AND AT LUNCHTIME Discharge Orders: Discharge Order (Routine); Ordered 03/01/24 Ordered By: Kaiden Calabrese Admission Data Admit Date/Time: 02/19/24 20:17 Attending Provider: Kaiden Calabrese Admit Provider: Jackson Dahl Primary Care Provider: Radha Barboza Other Providers: Jackson Dahl Other Interventions: Discharge Summary Assessment (RN) Last Done: 03/01/24 11:52 Hospital Stay Data Consultations 02/19/24 19:42 ED Decision to Admit Stat Diagnostic Imagining Performed 02/19/24 19:48 US venous doppler LE RT Urgent Pending Results Patient Have Any Pending Studies at Discharge: No Discharge Instructions Given to Patient (Per Discharging Provider) Ms Monzon, Please be very careful on the salt in food and fluids you take in. Over the years your history of smoking has given you COPD and this has lead to some changes in the pressures in your pulmonary artery, leading to you having swollen legs, the "fluid pill" works on your kidneys but the real way to control your swelling is the amount of fluid and salt you take in and elevate your legs( plus compression stockings or tights can help too) Janae, you have been admitted 17 times to the hospital this year, without good attention to your health it may become a consideration to have you transition to a more supervised post discharge environment such as a personal fpc, assisted living or [facility] home environment It is important you have frequent contact with your primary care, weigh yourself daily and stop smoking. Please also continue to follow up with your oncologist for the changes that are seen in your rigth 4th rib and right hip on CT Total Time Total Time Spent Total Time Spent (In Minutes): It required greater than 30 minutes to prepare this patient for discharge. Coding Level of Care Code 85848 INP/OBS DISCH >30 MIN Diagnoses Chronic heart failure with preserved ejection fraction I50.32 Heart failure chronicity: chronic Cellulitis L03.90 Laterality: right Site of cellulitis of extremity: lower extremity DM II (diabetes mellitus, type II), controlled E11.9 COPD (chronic obstructive pulmonary disease) J44.9 COPD type: unspecified COPD Tobacco use disorder F17.200 Anemia D64.9
== END 2024-03-01 13:09 | disposition home health service (06) | DRG 292 ==
LOC: ED 16:35 → 2N 20:17 → SUATTDRO 20:17 → 2N 22:51

== ENCOUNTER 2024-03-23 15:14 | Inpatient (IN) ==
[2024-03-23 15:51] LABS: Hematocrit (blood only) 44.2 % (37.0-47.0); Hemoglobin 13.7 g/dl (12.0-16.0); Mean Corpuscular Hemoglobin 24.4 pg (25.0-34.0); Mean Corpuscular Volume 78.6 fL (80.0-100.0); Mean Platelet Volume 10.2 fL (9.4-12.4); Platelet Count 403 K/uL (130-400); RDW Coefficient of Variation 20.2 % (11.5-14.5); RDW Standard Deviation 55.1 fL (36.4-46.3); Red Blood Count 5.62 M/uL (4.20-5.40); White Blood Count 20.65 K/ul (4.8-10.8)
--- NOTE | 2024-03-23 16:09 | XRay Report ---
XR chest 1V portable CLINICAL HISTORY: Shortness of breath. COMPARISON STUDY: Chest radiograph March 19, 2024. FINDINGS: There is no pneumothorax or pleural effusion. There is no consolidation to suggest pneumoni a. Cardiac mediastinal silhouette is stable. An expansile right fourth rib lesion remains unchanged. IMPRESSION: No acute cardiopulmonary findings. ACT 112: Negative or not required by law. Electronically signed by: Hipolito Sevlila M.D. 03/23/2024 4:07 PM
[2024-03-23 16:12] LABS: BUN Creatinine Ratio 31.4 (10-20); Calcium 9.3 mg/dl (8.6-10.3); Creatinine Clr Calc Pharmacy 70.3 ml/min; Potassium 4.1 mmol/L (3.5-5.1)
[2024-03-23 16:14] LABS: Base Excess VBG 11.2 mEq/L; HCO3 VBG 37 mmol/L; Oxygen Saturation VBG < 60.0 %; PCO2 VBG 52 mmHg (38-50); PO2 VBG 34 mmHg; pH VBG 7.46 (7.36-7.41)
[2024-03-23 16:22] LABS: Anisocytosis Present; Basophils # (auto) 0.02 K/uL (0.00-0.20); Basophils % (auto) 0.1 %; Eosinophils # (auto) 0.01 K/uL (0.00-0.50); Immature Granulocytes # (auto) 0.21 K/uL (0.01-0.20); Lymphocytes # (auto) 0.85 K/uL (1.20-3.40); Lymphocytes % (auto) 4.1 %; Monocytes # (auto) 0.31 K/uL (0.11-0.59); Monocytes % (auto) 1.5 %; Neutrophils # (auto) 19.25 K/uL (1.40-6.50); Neutrophils % (auto) 93.3 %; Ovalocytes 1+; Polychromasia 1+
[2024-03-23] MEDS: ALBUT/IPRATROP 3MG/0.5MG NEB 3 ML VIAL NEB STA ×3 (16:34→17:04)
--- NOTE | 2024-03-23 16:37 | Emergency Department Note ---
History of Present Illness General Chief Complaint: Shortness of Breath/Dyspnea Stated Complaint: COPD, SOB Time Seen by Provider: 03/23/24 15:20 History of Present Illness Provider Complaint: shortness of breath and cough Onset (ago): day(s) (2) Consistency/Duration: + progressively worsening Relieved By: + nothing Exacerbated By: + exertion and + coughing Known history of: COPD Associated symptoms: + cough, + wheezing and + chest congestion; no chest pain or no hemoptysis Home Medications Medication Instructions Recorded Confirmed Type buprenorphine 8 mg-naloxone 2 mg 1 film sublingual DAILY 05/14/22 03/19/24 History sublingual film nystatin 100,000 unit/gram topical 1 applic topical BID PRN UNDER 05/14/22 03/19/24 History powder BREASTS NEEDED. levalbuterol HCl 1.25 mg/3 mL 1.25 mg inhalation TID PRN 01/16/23 03/19/24 History solution for nebulization Shortness Of Breath Or Wheezing albuterol sulfate 90 mcg/actuation 2 puff inhalation UD PRN Shortness 08/30/23 03/19/24 History aerosol inhaler Of Breath Or Wheezing fluticasone propionate 50 1 spray intranasal BID nasal 09/15/23 03/19/24 Rx mcg/actuation nasal congestion #0 mL spray,suspension (Flonase Allergy Relief) fluticasone fur. 200 mcg-umeclid 1 ea inhalation QAM #60 ea 09/16/23 03/19/24 Rx 62.5 mcg-vilant 25 mcg inhalat.powder (Trelegy Ellipta) levalbuterol tartrate 45 2 puff inhalation Q4 PRN WHEEZE 09/16/23 03/19/24 Rx mcg/actuation aerosol inhaler #15 grams ipratropium bromide 0.02 % 3 ml continuous nebulization QID 10/17/23 03/19/24 Rx solution for inhalation PRN shortness of breath #75 mL calcium polycarbophil 625 mg 625 mg PO QAM #30 tabs 10/30/23 03/19/24 Rx tablet (Fiber (calcium polycarbophil)) insulin aspart U-100 100 unit/mL 10 unit subcut TIDM 11/07/23 03/19/24 History (3 mL) subcutaneous pen (Novolog FlexPen U-100 Insulin aspart) ascorbic acid (vitamin C) 500 mg 1,000 mg (2 x 500 mg) PO DAILY #60 01/02/24 03/19/24 Rx tablet (Vitamin C) tabs quetiapine 200 mg tablet 100 mg (1/2 x 200 mg) PO HS #0 tabs 02/05/24 03/19/24 Rx alprazolam 0.5 mg tablet 0.5 mg PO BID PRN ANXIETY 02/28/24 03/19/24 History citalopram 10 mg tablet 10 mg PO BID 02/28/24 03/19/24 History insulin glargine 100 unit/mL (3 50 unit subcut QAM 02/28/24 03/19/24 History mL) subcutaneous pen (Lantus Solostar U-100 Insulin) ondansetron 4 mg disintegrating 4 mg PO Q8 PRN NAUSEA/VOMITING 02/28/24 03/19/24 History tablet spironolactone 50 mg tablet 50 mg PO QAM 02/28/24 03/19/24 History colchicine 0.6 mg capsule 0.6 mg PO DAILY PRN joint pain #30 03/01/24 03/19/24 Rx caps potassium chloride 20 mEq 40 meq (2 x 20 mEq) PO BID #0 tabs 03/01/24 03/19/24 Rx tablet,extended release(part/cryst) (Klor-Con M) torsemide 100 mg tablet 100 mg PO QAM #30 tabs 03/01/24 03/19/24 Rx prednisone 5 mg tablet 15 mg (3 x 5 mg) PO DAILY 30 days 03/17/24 03/19/24 Rx #90 tabs Allergies Allergy/AdvReac Type Severity Reaction Status Date / Time codeine Allergy Severe Anaphylaxis Verified 03/07/24 14:16 Iodinated Contrast Media Allergy Severe Anaphylaxis Verified 03/07/24 14:16 shellfish derived Allergy Severe Anaphylaxis Verified 03/07/24 14:16 tramadol Allergy Intermediate ITCHINESS Verified 03/07/24 14:16 pollen extracts Allergy Mild Congested Unverified 03/07/24 14:16 iohexol Allergy Unknown CAN'T Verified 03/07/24 14:16 REMEMBER diphenhydramine AdvReac Severe Anxiety Verified 03/07/24 14:16 [From Benadryl] promethazine AdvReac Intermediate Anxiety Verified 03/07/24 14:16 Past Med/Surg History Problem List (Updated 03/23/24 @ 17:38 by Bhupinder Allen MD) Hyperglycemia due to diabetes mellitus (Acute) Chronic hypercapnic respiratory failure Bone marrow transplant status Bronchiectasis Allergic asthma Lower extremity edema Generalized anxiety disorder Heart failure with preserved ejection fraction DM II (diabetes mellitus, type II), controlled COPD (chronic obstructive pulmonary disease) COPD exacerbation (Acute) Dyspnea D-dimer, elevated (Acute) Palpitations (Acute) Chest pain (Acute) Bilateral knee pain CHF exacerbation (Acute) COPD exacerbation (Acute) Chest pain Right knee pain Elevated troponin (Acute) Acute exacerbation of chronic obstructive pulmonary disease (Acute) Leukocytosis (Acute) Acute hypokalemia (Acute) Diabetes Hypokalemia Tobacco abuse counseling Moderate persistent asthma Constipation Acute bronchitis Pulmonary vascular congestion Medical History Normocytic hypochromic anemia Failure of outpatient treatment Bilateral edema of lower extremity Gout Tobacco use disorder Hematochezia History of pulmonary embolism Michela esophagitis Acute and chronic respiratory failure with hypoxia Chronic anticoagulation Obesity hypoventilation syndrome Multiple myeloma Last chemotherapy 2017 Follows with medical oncology in [facility] History of pulmonary embolism Acute exacerbation of chronic obstructive pulmonary disease Acute heart failure with preserved ejection fraction (HFpEF) Acute exacerbation of chronic obstructive pulmonary disease Tobacco abuse Opiate dependence Asthma Surgical History No pertinent past surgical history Family History Sister Asthma Social History Smoking Status: Current every day smoker Tobacco Type: Cigarettes Cigarettes Per Day: 1 cigarette per day; Second Hand Exposure: No; Do You Dip or Chew Tobacco: No; Hx Alcohol Use: No Hx Substance Use: No Preferred Language: Persian Communication Ability: Effective International Relations Teacher Required: No Beliefs That Will Affect Care: None Current Living Situation: Alone Current Living Situation Comment: lives with sister temporarily Feels Safe at Home: Yes Assistive Devices: Oxygen - Continuous and Other Physical Exam 2 Vital Signs: Vital Signs - 24 hr 03/23/24 15:15 03/23/24 15:25 03/23/24 15:25 Temperature 36.6 C Temperature Source Temporal Artery Sc an Pulse Rate 110 H Pulse Rate from Sp O2 Sensor Pulse Rhythm Respiratory Rate 20 Respiratory Effort / Characteristics Labored Respiratory Depth Normal Respiratory Patter n Regular Blood Pressure 151/92 H Blood Pressure Viktoria n 111 Pulse Oximetry 100 95 Oxygen Delivery Me thod Room Air Nasal Cannula Nasal Cannula Oxygen Flow Rate 2 Sepsis Recent Feve r Within 48 Hours No Sepsis New/Unexpla ined Change in Men robyn Status N/A Sepsis Action Take n by Nursing No Action Required 03/23/24 15:25 03/23/24 15:31 03/23/24 15:33 Temperature Temperature Source Pulse Rate 103 H 104 H Pulse Rate from Sp O2 Sensor 103 H Pulse Rhythm Regular Respiratory Rate 30 H Respiratory Effort / Characteristics Respiratory Depth Respiratory Patter n Blood Pressure Blood Pressure Viktoria n Pulse Oximetry 100 Oxygen Delivery Me thod Nasal Cannula Oxygen Flow Rate 2 Sepsis Recent Feve r Within 48 Hours Sepsis New/Unexpla ined Change in Men robyn Status Sepsis Action Take n by Nursing 03/23/24 16:00 03/23/24 16:30 03/23/24 16:30 Temperature Temperature Source Pulse Rate 104 H 95 H Pulse Rate from Sp O2 Sensor 103 H 95 H Pulse Rhythm Respiratory Rate 17 17 Respiratory Effort / Characteristics Respiratory Depth Respiratory Patter n Blood Pressure 124/92 Blood Pressure Viktoria n 108 Pulse Oximetry 95 93 Oxygen Delivery Me thod Oxygen Flow Rate Sepsis Recent Feve r Within 48 Hours Sepsis New/Unexpla ined Change in Men robyn Status Sepsis Action Take n by Nursing 03/23/24 17:00 03/23/24 17:00 Temperature Temperature Source Pulse Rate 97 H Pulse Rate from Sp O2 Sensor 97 H Pulse Rhythm Respiratory Rate 16 Respiratory Effort / Characteristics Respiratory Depth Respiratory Patter n Blood Pressure 136/98 Blood Pressure Viktoria n 116 Pulse Oximetry 93 Oxygen Delivery Me thod Oxygen Flow Rate Sepsis Recent Feve r Within 48 Hours Sepsis New/Unexpla ined Change in Men robyn Status Sepsis Action Take n by Nursing Physical Exam: Physical Exam GENERAL: oriented to person, place, and time. appears well-developed and well- nourished. HENT: Exam performed. - Head: Normocephalic and atraumatic. EYES: Conjunctivae and EOM are normal. Right eye exhibits no discharge. Left eye exhibits no discharge. No scleral icterus. NECK: Normal range of motion. Neck supple. No JVD present. CV: Normal rate, regular rhythm, normal heart sounds and intact distal pulses. There is no peripheral edema. Palpable radial pulses bue. PULM/CHEST: Scant expiratory wheezes bilaterally. ABD: The abdomen is soft. There is no tenderness. NEURO: Motor and sensation grossly intact. SKIN: Skin is warm and dry. He is not diaphoretic. PSYCH: normal mood and affect. Behavior is normal. Judgment and thought content normal. Course Course 1520: The patient was evaluated in room C10. A complete history and physical exam was performed Cardiac monitoring: An order was placed for continuous cardiac monitoring. The monitor shows a rate of 100 with sinus rhythm interpreted by wa 1720: Vital signs stable. On reassessment patient still wheezing status post 2 DuoNeb treatments. She states she does not feel any better and feels like she will need to be admitted to the hospital. Labs show stable leukocytosis of 20. Lactic acid 2.1. Chest x-ray negative. Patient will be admitted to Dr. Linton's team Dr. Linton states he will evaluate the patient for admission. Administered Medications Discontinued Medications Albuterol (Albut/Ipratrop 3mg/0.5mg Neb 3 Ml Vial) 3 ml NEB NOW STA; Protocol Stop: 03/23/24 16:25 Last Admin: 03/23/24 16:34 Dose: 3 ml Documented By: ROSHNI Albuterol (Albut/Ipratrop 3mg/0.5mg Neb 3 Ml Vial) 3 ml NEB NOW STA; Protocol Stop: 03/23/24 16:25 Last Admin: 03/23/24 16:43 Dose: 3 ml Documented By: ROSHNI Albuterol (Albut/Ipratrop 3mg/0.5mg Neb 3 Ml Vial) 3 ml NEB NOW STA; Protocol Stop: 03/23/24 16:55 Last Admin: 03/23/24 17:04 Dose: 3 ml Documented By: ROSHNI Lorazepam (Lorazepam 2 Mg/1 Ml Vial) 0.5 mg IV NOW STA Stop: 03/23/24 16:55 Last Admin: 03/23/24 17:07 Dose: 0.5 mg Documented By: ROSHNI Methylprednisolone (Methylprednisolone 125 Mg/2 Ml Vial) 125 mg IV NOW STA Stop: 03/23/24 16:55 Last Admin: 03/23/24 17:04 Dose: 125 mg Documented By: ROSHNI Medical Decision Making Laboratory Data Attestation: I reviewed the patient's lab results. 03/23/24 15:35 03/23/24 15:35 Lab Results 03/23/24 03/23/24 Range/Units 15:35 16:06 WBC 20.65 H (4.8-10.8) K/ul RBC 5.62 H (4.20-5.40) M/uL Hgb 13.7 (12.0-16.0) g/dl Hct 44.2 (37.0-47.0) % MCV 78.6 L (80.0-100.0) fL MCH 24.4 L (25.0-34.0) pg MCHC 31.0 L (32.0-36.0) g/dL RDW Std Deviation 55.1 H (36.4-46.3) fL RDW Coeff of Malick 20.2 H (11.5-14.5) % Plt Count 403 H (130-400) K/uL MPV 10.2 (9.4-12.4) fL Immature Gran % (Auto) 1.0 % Neut % (Auto) 93.3 % Lymph % (Auto) 4.1 % [place] % (Auto) 1.5 % Eos % (Auto) 0.0 % Baso % (Auto) 0.1 % Neut # (Auto) 19.25 H (1.40-6.50) K/uL Lymph # (Auto) 0.85 L (1.20-3.40) K/uL [place] # (Auto) 0.31 (0.11-0.59) K/uL Eos # (Auto) 0.01 (0.00-0.50) K/uL Baso # (Auto) 0.02 (0.00-0.20) K/uL Immature Gran # (Auto) 0.21 H (0.01-0.20) K/uL Polychromasia 1+ Anisocytosis Present Ovalocytes 1+ VBG pH 7.46 H (7.36-7.41) VBG pCO2 52 H (38-50) mmHg VBG pO2 34 mmHg VBG HCO3 37 mmol/L VBG O2 Saturation < 60.0 % VBG Base Excess 11.2 mEq/L Sodium 139 (136-145) mmol/L Potassium 4.1 (3.5-5.1) mmol/L Chloride 95 L (98-107) mmol/L Carbon Dioxide 32 (21-32) mmol/L Anion Gap 12 H (3-11) BUN 27 H (6-23) mg/dl Creatinine 0.86 (0.6-1.2) mg/dl Est Cr Clr Drug Dosing 70.3 ml/min eGFR 76.33 BUN/Creatinine Ratio 31.4 H (10-20) Glucose 208 H (70-99(Fasting)) mg/dl Lactate 2.1 H* (0.4-2.0) mmol/L Calcium 9.3 (8.6-10.3) mg/dl Imaging Data Attestation: I personally reviewed and interpreted this imaging study as follows: My Impression: Chest x-ray negative. Airway clear. No pneumothorax. No consolidation. No cardiomegaly or cephalization.. No free air under the diaphragm. No fractures of the skeletal structures. Radiologist's Impression: Chest X-Ray 03/23/24 15:21 XR chest 1V portable CLINICAL HISTORY: Shortness of breath. COMPARISON STUDY: Chest radiograph March 19, 2024. FINDINGS: There is no pneumothorax or pleural effusion. There is no consolidation to suggest pneumonia. Cardiac mediastinal silhouette is stable. An expansile right fourth rib lesion remains unchanged. IMPRESSION: No acute cardiopulmonary findings. ACT 112: Negative or not required by law. Electronically signed by: Hipolito Sevilla M.D. 03/23/2024 4:07 PM ECG Data Attestation: I personally reviewed and interpreted this ECG as follows: Interpretation: Sinus tachycardia with rate of 107. CO 134 QRS [address] elevation or ST depression. [facility] Narrative 1520: The patient was evaluated in room C10. A complete history and physical exam was performed Cardiac monitoring: An order was placed for continuous cardiac monitoring. The monitor shows a rate of 100 with sinus rhythm interpreted by me 1720: Vital signs stable. On reassessment patient still wheezing status post 2 DuoNeb treatments. She states she does not feel any better and feels like she will need to be admitted to the hospital. Labs show stable leukocytosis of 20. Lactic acid 2.1. Chest x-ray negative. Patient will be admitted to Dr. Linton's team Dr. Linton states he will evaluate the patient for admission. Impression & Plan COPD exacerbation Discharge Plan Visit Data Chief Complaint: Shortness of Breath/Dyspnea Stated Complaint: COPD, SOB ED Provider: Bhupinder Allen Discharge Problem: COPD exacerbation Patient Disposition: Admitted As Inpatient Forms Stand Alone Forms: My [facility] Prescriptions Prescriptions: No Action prednisone 5 mg tablet 15 mg PO DAILY 30 Days Qty: 90 0RF nystatin 100,000 unit/gram Powder 1 applic TOPICAL BID PRN (Reason: UNDER BREASTS NEEDED.) buprenorphine-naloxone 8-2 mg film 1 film sublingual DAILY levalbuterol HCl 1.25 mg/3 mL solution for nebulization 1.25 mg INHALATION TID PRN (Reason: Shortness Of Breath Or Wheezing) albuterol sulfate 90 mcg/actuation HFA aerosol inhaler 2 puff INHALATION UD PRN (Reason: Shortness Of Breath Or Wheezing) ipratropium bromide 0.02 % solution 3 ml continuous nebulization QID PRN (Reason: shortness of breath) Qty: 75 0RF calcium polycarbophil [Fiber (calcium polycarbophil)] 625 mg Tablet 625 mg PO QAM Qty: 30 0RF Rx Instructions: Over the counter quetiapine 200 mg tablet 100 mg PO HS Qty: 0 0RF fluticasone propionate [Flonase Allergy Relief] 50 mcg/actuation spray,suspension 1 spray intranasal BID Qty: 0 0RF Rx Instructions: administer into each nostril Trelegy Ellipta 200-62.5-25 mcg blister with device 1 ea INHALATION QAM Qty: 60 0RF levalbuterol tartrate 45 mcg/actuation HFA aerosol inhaler 2 puff INHALATION Q4 PRN (Reason: WHEEZE) Qty: 15 0RF insulin aspart U-100 [Novolog FlexPen U-100 Insulin] 100 unit/mL (3 mL) insulin pen 10 unit subcut TIDM ascorbic acid (vitamin C) [Vitamin C] 500 mg Tablet 1,000 mg PO DAILY Qty: 60 0RF citalopram 10 mg tablet 10 mg PO BID alprazolam 0.5 mg tablet 0.5 mg PO BID PRN (Reason: ANXIETY ) Rx Instructions: PT MAY TAKE AN EXTRA TAB FOR ACUTE PANIC ATTACKS- MAX 3 TABS DAILY ondansetron 4 mg tablet,disintegrating 4 mg PO Q8 PRN (Reason: NAUSEA/VOMITING) spironolactone 50 mg tablet 50 mg PO QAM insulin glargine [Lantus Solostar U-100 Insulin] 100 unit/mL (3 mL) insulin pen 50 unit SUBCUT QAM torsemide 100 mg Tablet 100 mg PO QAM Qty: 30 5RF potassium chloride [Klor-Con M20] 20 mEq tablet,ER particles/crystals 40 meq PO BID Qty: 0 0RF Rx Instructions: PATIENT HAS NOT BEEN TAKING DIRECTED; CONFUSED ABOUT DOSE colchicine 0.6 mg capsule 0.6 mg PO DAILY PRN (Reason: joint pain) Qty: 30 0RF Referrals Referrals: Radha Barboza PA-C [Primary Care Provider] -
[2024-03-23] MEDS: methylPREDNISolone 125 MG/2 ML VIAL IV STA (17:04)
[2024-03-23] MEDS: LORazepam 2 MG/1 ML VIAL IV STA (17:07)
--- NOTE | 2024-03-23 17:33 | History & Physical Report ---
Date of Service March 23, 2024 Assessment & Plan (1) Acute exacerbation of chronic obstructive pulmonary disease: Plan: H/o chronic hypercapnic respiratory failure Presented for shortness of breath and cough x 2 days - Admit - CXR without acute cardiopulmonary findings - CBC leukocytosis (20.65) with neutrophil predominance (19.25)- on chronic steroids outpatient - CMP anion gap 12; lactate 2.1 - VBGs pH 7.46, pCO2 52 - Incentive spirometer - No home O2; O2 prn via NC - wean as patient tolerates - IV methylprednisolone 125mg in ED- on chronic steroids outpatient Prednisone 15mg daily - Adjust steroids to Solu-Medrol 40mg IV BID while inpatient starting 03/23 morning - Adjusted inhalers to nebulizers- Continue nebs while inpatient (2) Thrush of mouth and esophagus: Plan: Per patient, also noticeable on exam at back of throat, started on nystatin outpatient; Continuous symptoms substernally when swallowing - May be secondary to chronic steroid use- would try to minimize steroids if patient tolerates - Continue nystatin - Start fluconazole 400 mg p.o. x 1 NOW then 200 mg p.o. x 14 days - montior QT (3) Heart failure with preserved ejection fraction: Plan: Presenting with SOB and cough; No fluid overload apparent in lower extremities or within lungs; States that she has an upcoming appointment with outpatient ice cutter Appears to be at her baseline - Current weight 92.4kg; Daily weights standing - I+Os - Echo 07/2023 - CXR without acute cardiopulmonary finding - CBC leukocytosis w/ neutrophil predominance- on chronic steroids - On spironolactone 50mg + Torsemide 100mg at home- continue - Promote leg elevation and frequent movement as able (4) DM II (diabetes mellitus, type II), controlled: Plan: H/o DMT2 - BSG ACHS with SSI - Lantus 68 Units daily - per last hospital admission; takes NovoLog 10 U daily, Lantus 50 U every morning at home - Ozempic weekly- hold while inpatient - Most recent A1C 8.3% - Adjust regimen as needed - Pharm glycemic consult placed Plan AYAN- Quetiapine 200mg, alprazolam 0.5mg TID prn (per patient), citalopram 10mg BID Opioid use disorder- Suboxone as prescribed H/o MM w/ stem cell transplant- Follows w/ oncology, will follow CBC Dispo: Admit Diet: T2DM VTE Prophylaxis: Lovenox Code: Full Admission and Anticipated Discharge Date Admission Date: 03/23/2024 History of Present Illness Chief Complaint: SOB Primary Care Provider: Radha Jabari 63-year-old female presenting for SOB and cough x 2 days. ED course: CBC- WBC 20.65, RBC 5.62, MCHC 78.6, MCH 24.4, MCHC 31, RDW 55.1, platelets 403, neutrophils 19.28;; VBG pH 7.46, pCO2 52; CMP chloride 95, AG 12, BUN 27, BUN/creatinine ratio 31.4, glucose 208; lactate 2.1.; CXR without acute cardiopulmonary findings.; Provided with albuterol nebulizer, methylprednisolone, lorazepam in ED. Patient 63-year-old female PMHx chronic hypercapnic respiratory failure, history of asthma, COPD, HFpEF, DMT2, and AYAN with most recent hospital course 02/18 to 03/01, who presents with dyspnea x 2 days. States that she tried all of her medications at home to include her nebulizers and inhalers but did not have relief of symptoms. Started to have associated cough today and was worsening so patient decided to call her PCP who encouraged her to come in. States that she has had some chest tightness when coughing as well as substernal discomfort with swallowing secondary to previously diagnosed thrush. Having worsening shortness of breath with walking. Denying fever chills, chest pain, palpitations, pain, N/V/D/C, numbness/tingling, or LUTS. States that she has no swelling in her legs at this time. Took all a.m. medications. Please see Dr. Linton's attestation for adjustments/additions to treatment plan. Allergies Allergy/AdvReac Type Severity Reaction Status Date / Time codeine Allergy Severe Anaphylaxis Verified 03/07/24 14:16 Iodinated Contrast Media Allergy Severe Anaphylaxis Verified 03/07/24 14:16 shellfish derived Allergy Severe Anaphylaxis Verified 03/07/24 14:16 tramadol Allergy Intermediate ITCHINESS Verified 03/07/24 14:16 pollen extracts Allergy Mild Congested Unverified 03/07/24 14:16 iohexol Allergy Unknown CAN'T Verified 03/07/24 14:16 REMEMBER diphenhydramine AdvReac Severe Anxiety Verified 03/07/24 14:16 [From Benadryl] promethazine AdvReac Intermediate Anxiety Verified 03/07/24 14:16 Home Medications Medication Instructions Recorded Confirmed Type buprenorphine 8 mg-naloxone 2 mg 0.5 film sublingual BID 05/14/22 03/23/24 History sublingual film nystatin 100,000 unit/gram topical 1 applic topical BID PRN UNDER 05/14/22 03/23/24 History powder BREASTS NEEDED. levalbuterol HCl 1.25 mg/3 mL 1.25 mg inhalation Q8H PRN 01/16/23 03/23/24 History solution for nebulization Shortness Of Breath Or Wheezing albuterol sulfate 90 mcg/actuation 2 puff inhalation Q4H PRN 08/30/23 03/23/24 History aerosol inhaler Shortness Of Breath Or Wheezing fluticasone propionate 50 1 spray intranasal BID nasal 09/15/23 03/23/24 Rx mcg/actuation nasal congestion #0 mL spray,suspension (Flonase Allergy Relief) fluticasone fur. 200 mcg-umeclid 1 ea inhalation QAM #60 ea 09/16/23 03/23/24 Rx 62.5 mcg-vilant 25 mcg inhalat.powder (Trelegy Ellipta) ipratropium bromide 0.02 % 3 ml continuous nebulization QID 10/17/23 03/23/24 Rx solution for inhalation PRN shortness of breath #75 mL calcium polycarbophil 625 mg 625 mg PO QAM #30 tabs 10/30/23 03/23/24 Rx tablet (Fiber (calcium polycarbophil)) insulin aspart U-100 100 unit/mL 10 unit subcut TIDM 11/07/23 03/23/24 History (3 mL) subcutaneous pen (Novolog FlexPen U-100 Insulin aspart) ascorbic acid (vitamin C) 500 mg 1,000 mg (2 x 500 mg) PO DAILY #60 01/02/24 03/23/24 Rx tablet (Vitamin C) tabs alprazolam 0.5 mg tablet 0.5 mg PO BID PRN ANXIETY 02/28/24 03/23/24 History citalopram 10 mg tablet 10 mg PO DAILY 02/28/24 03/23/24 History insulin glargine 100 unit/mL (3 50 unit subcut QAM 02/28/24 03/23/24 History mL) subcutaneous pen (Lantus Solostar U-100 Insulin) ondansetron 4 mg disintegrating 4 mg PO Q8 PRN NAUSEA/VOMITING 02/28/24 03/23/24 History tablet colchicine 0.6 mg capsule 0.6 mg PO DAILY PRN joint pain #30 03/01/24 03/23/24 Rx caps potassium chloride 20 mEq 40 meq (2 x 20 mEq) PO BID #0 tabs 03/01/24 03/23/24 Rx tablet,extended release(part/cryst) (Klor-Con M) torsemide 100 mg tablet 100 mg PO QAM #30 tabs 03/01/24 03/23/24 Rx prednisone 5 mg tablet 15 mg (3 x 5 mg) PO DAILY 30 days 03/17/24 03/23/24 Rx #90 tabs allopurinol 300 mg tablet 300 mg PO DAILY 03/23/24 03/23/24 History budesonide 0.25 mg/2 mL suspension 0.25 mg inhalation BID 03/23/24 03/23/24 His tory for nebulization bumetanide 2 mg tablet 0 mg PO BID 03/23/24 03/23/24 History levalbuterol tartrate 45 2 puff inhalation Q6H PRN WHEEZE 03/23/24 03/23/24 History mcg/actuation aerosol inhaler nystatin 100,000 unit/mL oral 500,000 unit PO QID 03/23/24 03/23/24 History suspension quetiapine 100 mg tablet 100 mg PO DAILY 03/23/24 03/23/24 History silver sulfadiazine 1 % topical 1 applic topical BID 03/23/24 03/23/24 History cream spironolactone 25 mg tablet 25 mg PO DAILY 03/23/24 03/23/24 History Past Med/Surg History Problem List (Updated 03/23/24 @ 17:53 by Tato Horn PA-C) Thrush of mouth and esophagus Hyperglycemia due to diabetes mellitus (Acute) Chronic hypercapnic respiratory failure Bone marrow transplant status Bronchiectasis Allergic asthma Lower extremity edema Generalized anxiety disorder Heart failure with preserved ejection fraction DM II (diabetes mellitus, type II), controlled COPD (chronic obstructive pulmonary disease) COPD exacerbation (Acute) Dyspnea D-dimer, elevated (Acute) Palpitations (Acute) Chest pain (Acute) Bilateral knee pain CHF exacerbation (Acute) COPD exacerbation (Acute) Chest pain Right knee pain Elevated troponin (Acute) Acute exacerbation of chronic obstructive pulmonary disease (Acute) Leukocytosis (Acute) Acute hypokalemia (Acute) Diabetes Hypokalemia Tobacco abuse counseling Moderate persistent asthma Constipation Acute bronchitis Pulmonary vascular congestion Medical History Normocytic hypochromic anemia Failure of outpatient treatment Bilateral edema of lower extremity Gout Tobacco use disorder Hematochezia History of pulmonary embolism Michela esophagitis Acute and chronic respiratory failure with hypoxia Chronic anticoagulation Obesity hypoventilation syndrome Multiple myeloma Last chemotherapy 2017 Follows with medical oncology in [facility] History of pulmonary embolism Acute exacerbation of chronic obstructive pulmonary disease Acute heart failure with preserved ejection fraction (HFpEF) Acute exacerbation of chronic obstructive pulmonary disease Tobacco abuse Opiate dependence Asthma Surgical History No pertinent past surgical history Family History Sister Asthma Social History Smoking Status: Current every day smoker Tobacco Type: Cigarettes Cigarettes Per Day: 1 cigarette per day; Second Hand Exposure: Yes; Do You Dip or Chew Tobacco: No; Hx Alcohol Use: No Hx Substance Use: No Preferred Language: Angolan Communication Ability: Effective 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 Beliefs That Will Affect Care: None Current Living Situation: Family Current Living Situation Comment: Lives with sister Other Information That Helps Us Care for You: No Feels Safe at Home: Yes Safety Concerns: Feels Safe At This Time Assistive Devices: None Review of Systems Review of Systems: All systems reviewed & are unremarkable except as noted in Subjective Physical Exam Physical Exam: General: No acute distress Skin: Warm and dry Head: Normocephalic, atraumatic Eyes: PERRL, conjunctivae clear, sclera non-icteric ENT: External ear and ear canal without swelling; nose atraumatic Neck: Supple, no LAD Cardio: RRR, no M/G/R, S1 and S2 normal Resp: No respiratory distress, Lungs CTA in all lobes bilaterally, no wheezes, rales, or rhonchi Abdomen: Soft, symmetric, nontender; No masses or hepatosplenomegaly; Bowel sounds normoactive MSK: No deformities, full ROM throughout; pulses palpable and equal; no edema. Neuro: Awake, alert; Sensation intact bilaterally; CN intact Psych: Appropriate mood and affect Results & Data Results & Data Vital Signs (Past 12 Hours) Vital Signs Temp Pulse Resp BP Pulse Ox O2 Del Method O2 Flow Rate 03/23/24 17:00 136/98 03/23/24 17:00 97 H 16 93 03/23/24 16:30 95 H 17 93 03/23/24 16:30 124/92 03/23/24 16:00 104 H 17 95 03/23/24 15:33 104 H 30 H 100 03/23/24 15:31 103 H 03/23/24 15:25 Nasal Cannula 2 03/23/24 15:25 95 Nasal Cannula 2 03/23/24 15:25 Nasal Cannula 03/23/24 15:15 36.6 C 110 H 20 151/92 H 100 Room Air Laboratory Results 03/23/24 03/23/24 16:06 15:35 WBC 20.65 H RBC 5.62 H Hgb 13.7 Hct 44.2 MCV 78.6 L MCH 24.4 L MCHC 31.0 L RDW Std Deviation 55.1 H RDW Coeff of Malick 20.2 H Plt Count 403 H MPV 10.2 Immature Gran % (Auto) 1.0 Neut % (Auto) 93.3 Lymph % (Auto) 4.1 Harper % (Auto) 1.5 Eos % (Auto) 0.0 Baso % (Auto) 0.1 Neut # (Auto) 19.25 H Lymph # (Auto) 0.85 L Harper # (Auto) 0.31 Eos # (Auto) 0.01 Baso # (Auto) 0.02 Immature Gran # (Auto) 0.21 H Polychromasia 1+ Anisocytosis Present Ovalocytes 1+ VBG pH 7.46 H VBG pCO2 52 H VBG pO2 34 VBG HCO3 37 VBG O2 Saturation < 60.0 VBG Base Excess 11.2 Sodium 139 Potassium 4.1 Chloride 95 L Carbon Dioxide 32 Anion Gap 12 H BUN 27 H Creatinine 0.86 Est Cr Clr Drug Dosing 70.3 eGFR 76.33 BUN/Creatinine Ratio 31.4 H Glucose 208 H Lactate 2.1 H* Calcium 9.3 Diagnostic Findings Chest X-Ray 03/23/24 15:21 XR chest 1V portable CLINICAL HISTORY: Shortness of breath. COMPARISON STUDY: Chest radiograph March 19, 2024. FINDINGS: There is no pneumothorax or pleural effusion. There is no consolidation to suggest pneumonia. Cardiac mediastinal silhouette is stable. An expansile right fourth rib lesion remains unchanged. IMPRESSION: No acute cardiopulmonary findings. ACT 112: Negative or not required by law. Electronically signed by: Hipolito Sevilla M.D. 03/23/2024 4:07 PM PG Care Time/CCT Total # of Minutes Spent Total Time Spent with Patient: Total time spent is greater than 50% in coordination of care (as documented) at patient's floor/unit and/or counseling patient: Coding Level of Care Code 12297 INT INP/OBS CARE 3/75MIN Diagnoses Acute exacerbation of chronic obstructive pulmonary disease J44.1 Thrush of mouth and esophagus B37.81; B37.0 Chronic heart failure with preserved ejection fraction I50.32 Heart failure chronicity: chronic DM II (diabetes mellitus, type II), controlled E11.9 Time Spent (min) 80 (3) Heart failure with preserved ejection fraction Heart failure chronicity: chronic Qualified Code(s): I50.32 - Chronic diastolic (congestive) heart failure
[2024-03-23] MEDS ORDERED: NYSTATIN POWDER 15GM BTL EXT PRN (20:15)
[2024-03-23] MEDS ORDERED: GLUCOSE 40% GEL 15 GM TUBE PO PRN (20:15)
[2024-03-23] MEDS ORDERED: CARBOHYDRATES FOR HYPOGLYCEMIA PO PRN (20:15)
[2024-03-23] MEDS ORDERED: DEXTROSE 50% 50 ML SYRINGE IV PRN (20:15)
[2024-03-23] MEDS ORDERED: BUDESONIDE 0.25 MG/2 ML VIAL (PULMICORT) NEB PRN (20:15)
[2024-03-23] MEDS ORDERED: GLUCOSE 10 TAB/TUBE PO PRN (20:15)
[2024-03-23] MEDS ORDERED: PHARMACY GLYCEMIC MGMT CONSULT PRN (20:15)
[2024-03-23] MEDS ORDERED: GLUCAGON FOR INJ 1 MG VIAL SQ PRN (20:15)
[2024-03-23] MEDS: ALPRAZolam 0.5 MG TABLET PO PRN (20:31)
[2024-03-23] MEDS: FORMOTEROL 20 MCG/2 ML VIAL NEB SCH (20:46)
[2024-03-23] MEDS: BUDESONIDE 0.25 MG/2 ML VIAL (PULMICORT) NEB SCH (20:49)
[2024-03-23] MEDS: LEVALBUTEROL 1.25 MG/3 ML NEB NEB SCH (20:49)
[2024-03-23] MEDS: IPRATROPIUM BROMIDE NEB SOLN 0.02% 0.5MG/2.5ML VIAL NEB SCH (20:49)
[2024-03-23] MEDS ORDERED: BUMETANIDE 1 MG TAB PO SCH (21:00)
[2024-03-23] MEDS: INSULIN ASPART PER UNIT CHARGE SC SCH (21:34)
[2024-03-23] MEDS: LANTUS PER UNIT CHARGE SC ONE (21:34)
[2024-03-23] MEDS: FLUCONAZOLE 100 MG TAB PO ONE (21:35)
[2024-03-23] MEDS: ALBUT/IPRATROP 3MG/0.5MG NEB 3 ML VIAL NEB SCH (21:36)
[2024-03-23] MEDS: QUEtiapine FUMARATE 100 MG TABLET PO SCH (21:36)
[2024-03-23] MEDS: NYSTATIN SUSP 500,000 U/5 ML UDC PO SCH (21:36)
[2024-03-23] MEDS: POTASSIUM CHLORIDE CRTAB 20 MEQ TABCR PO SCH (21:41)
[2024-03-23] MEDS: ENOXAPARIN INJ 40 MG/0.4 ML SYR SQ SCH (21:41)
[2024-03-23] MEDS: BUPRENORPHINE/NALOXONE 8/2 MG TAB SL SCH (21:41)
[2024-03-24 06:32] LABS: Hematocrit (blood only) 39.1 % (37.0-47.0); Hemoglobin 12.2 g/dl (12.0-16.0); Mean Corpuscular Hemoglobin 24.7 pg (25.0-34.0); Mean Corpuscular Hgb Conc 31.2 g/dL (32.0-36.0); Mean Corpuscular Volume 79.1 fL (80.0-100.0); Mean Platelet Volume 10.7 fL (9.4-12.4); Platelet Count 320 K/uL (130-400); RDW Coefficient of Variation 19.9 % (11.5-14.5); RDW Standard Deviation 55.7 fL (36.4-46.3); Red Blood Count 4.94 M/uL (4.20-5.40); White Blood Count 15.33 K/ul (4.8-10.8)
[2024-03-24 06:33] LABS: BUN Creatinine Ratio 42.6 (10-20); Calcium 8.8 mg/dl (8.6-10.3); Creatinine Clr Calc Pharmacy 88.2 ml/min; Potassium 4.5 mmol/L (3.5-5.1)
--- NOTE | 2024-03-24 07:47 | Hospitalist Progress Note ---
Date of Service March 24, 2024 Assessment & Plan (1) Thrush of mouth and esophagus: (2) Heart failure with preserved ejection fraction: (3) DM II (diabetes mellitus, type II), controlled: (4) COPD exacerbation: Plan 1) Acute exacerbation of chronic obstructive pulmonary disease Hx of chronic hypercapnic respiratory failure Presented for shortness of breath and cough x 2 days - CXR without acute cardiopulmonary findings - CBC leukocytosis (20.65) with neutrophil predominance (19.25)- on chronic steroids outpatient - CMP anion gap 12; lactate 2.1; VBGs pH 7.46, pCO2 52 - Incentive spirometer - No home O2; O2, PRN, via NC - wean as patient tolerates - IV methylprednisolone 125mg in ED- on chronic steroids outpatient Prednisone 15mg daily - Adjust steroids to Solu-Medrol 40mg IV BID while inpatient starting 03/23 morning - Adjusted inhalers to nebulizers- Continue nebs while inpatient (2) Thrush of mouth and esophagus Per patient, also noticeable on exam at back of throat, started on nystatin outpatient; Continuous symptoms substernally when swallowing - May be secondary to chronic steroid use- would try to minimize steroids if patient tolerates - Continue nystatin rinse - Start fluconazole 400 mg p.o. x 1 NOW then 200 mg p.o. 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 Appears to be at her baseline, so no BNP ordered - Current weight 92.4kg; Daily weights standing; I+Os - Echo 07/2023 - CXR without acute cardiopulmonary finding - CBC leukocytosis w/ neutrophil predominance- on chronic steroids - On spironolactone 50mg + Torsemide 100mg at home- continue - Promote leg elevation and frequent movement as able (4) DM II (diabetes mellitus, type II), controlled Hx of T2DM - BSG ACHS with SSI - Lantus 68 Units daily - per last hospital admission; takes NovoLog 10 U daily, Lantus 50 U every morning at home - Ozempic weekly- hold while inpatient - Most recent A1C 8.3% - Adjust regimen as needed - Pharm glycemic consult placed Plan AYAN- Quetiapine 200mg, alprazolam 0.5mg TID prn (per patient), citalopram 10mg BID Opioid use disorder- Suboxone as prescribed Hx of MM w/ stem cell transplant- Follows w/ oncology, will follow CBC Gout- allopurinol Dispo: Admit Diet: T2DM VTE Prophylaxis: Lovenox, 40 mg, subQ, BID Code: Full Admission and Anticipated Discharge Date Admission Date: March 23, 2024 Supervising Physician Co-Signing Physician Notes ATTESTATION I also saw the patient and confirmed rosario portions of the history and exam. I agree with the impression and plan in the resident documentation, and as summarized below. Upon our exam early this afternoon, the patient is able in the hallway. She is somewhat short of breath when she returns to her room, although this improves with some rest. EXAM 132/84, 101, 16, 36.6, 95% room air pleasant. Alert. No distress appreciated. She does pause during speech to catch her breath. Heart regular rate and rhythm; auscultated rate mid 80s lungs with good air exchange, other wheezing throughout. DATA Labs White blood cell count 15.33 BMP unremarkable Imaging Chest x-ray upon admission showed no acute findings IMPRESSION & PLAN Acute exacerbation of chronic obstructive pulmonary disease continue home inhalers Solu-Medrol Note that she is on chronic oral steroids at home Oral and esophageal thrush Fluconazole and nystatin HFpEF Type 2 diabetes Continue home medications Opiate use disorder, on Suboxone Suboxone dose clarified with patient today Additional per resident documentation Subjective Patient is a 63 yo F w/ a PMHx of chronic hypercapnic resp failure, bronchiectasis, bone marrow transplant status, AYAN, HFpEF, T2DM, COPD, constipation. She has been trying all of the various treatment modalities, including all of her inhalers. When she [facility] at the [facility] ED they gave her 3 different meds, none of which seemed to help a lot. Patient has also been dealing with oral and esophageal thrush. Patient had a nightmare last night that told her that if she kept her CPAP on she was going to , so she took it off, but in general does like to use her CPAP. Review of Systems Constitutional: + body aches and + fatigue; no fever, no chills and no weaknes s Respiratory: + cough, + chest congestion and + dyspne a; no change in sputum and no hemoptysis Cardiovascular: + chest pain with activity (chest tightn ess w/ mild activity); no palpitations Gastrointestinal: + constipation (chronic); no abdominal p ain, no nausea and no vomiting Genitourinary: no dysuria and no urinary frequency Neurologic: + headache(s) (chronic intermittent GOMEZ's but less frequent with CPAP use) Physical Exam Constitutional: WD/WN, vitals as above Respiratory: Auscultation: + wheezes; no crackles Cardiovascular: RRR, no murmur, no edema Extremities: normal capillary refill and + calf tenderness Gastrointestinal (Abdomen): normal bowel sounds, soft, nontender, no hepatosplenomegaly Psychiatric: A+Ox3, euthymic affect Results & Data Results & Data Vital Signs (Past 12 Hours) Vital Signs Temp Pulse Pulse Resp BP Pulse Ox O2 Del Method 03/24/24 07:12 87 16 90 Room Air 03/24/24 02:50 100 H 14 96 03/24/24 00:00 101 H 21 97 03/23/24 20:50 101 H 16 98 Room Air 03/23/24 20:17 Room Air 03/23/24 20:17 36.7 C 103 H 20 154/89 H 97 Room Air 03/23/24 19:48 109 H 22 94 Room Air Resident Activity Tracking Resident Involvement: Resident Care Provided Care Provided: Adult Hospital Medicine (2) Heart failure with preserved ejection fraction Heart failure chronicity: chronic Qualified Code(s): I50.32 - Chronic diastolic (congestive) heart failure
[2024-03-24] MEDS: LANTUS PER UNIT CHARGE SQ SCH (08:37)
[2024-03-24] MEDS ORDERED: NON-FORMULARY MEDICATION (Fluticasone-Umeclidin-Vilanter [Trelegy Ellipta] 200-62.5-25 mcg INH SCH (09:00)
[2024-03-24] MEDS ORDERED: methylPREDNISolone 125 MG/2 ML VIAL IV SCH (09:00)
[2024-03-24] MEDS ORDERED: QUEtiapine FUMARATE 100 MG TABLET PO SCH (09:00)
--- OUTSIDE RECORDS SUMMARY | 2024-03-24 09:52 | External Medical Summary | Continuity of Care Document ---
Author Name Unknown Organization [facility] [id number] [place] [address] [phone] Care Team Providers Care Umbrella Tipper Name Role Phone Radha Barboza Primary Care Physician [phone] [id number] Date(s): 03/14/24 - 03/14/24 [facility] [address] [facility] [address] [facility] [address] [facility] [address] [place] [address] [phone] Encounter Diagnosis Body mass index [BMI] 39.0-39.9, adult(Discharge Diagnosis) - 03/14/24 Swelling of lower extremity(Discharge Diagnosis) - 03/14/24 COPD without exacerbation(Discharge Diagnosis) - 03/14/24 Hypokalemia(Discharge Diagnosis) - 03/14/24 Other specified soft tissue disorders(Final) - Chronic obstructive pulmonary disease, unspecified(Final) - Hypokalemia(Final) - Discharge Disposition: Home or Self [...] 102 lancet, Refills: 0, 32G x , Pharmacy:[facility]/pharmacy #[id number] Start Date: 06/30/23 Status: Ordered allopurinol 300 mg oral tablet Start: 12/24/23 7:01:00 PM EDT, 1 tab, PO, Daily, Disp# 30 tab, Refills: 5, Pharmacy: [facility]/pharmacy #[id number] Start Date: 12/24/23 Stop Date: 06/21/24 Status: Ordered ALPRAZolam 0.5 mg oral tablet Start: 02/15/24 10:01:00 AM EDT, 1 tab, PO, bid, Disp# 90 tab, Refills: 5, Make take an extra tablet for acute panic attacks. Max 3/day, PRN: as needed for anxiety, Pharmacy: [facility]/pharmacy #[id number] Start Date: 02/15/24 Status: Ordered bumetanide 2 mg oral tablet Start: 03/09/23 10:51:00 PM EST, See Instructions, Disp# 360 tab, Refills: 3, Take 2 tablets twice daily, Pharmacy: [facility]/pharmacy #[id number] Start Date: 03/09/23 Status: Ordered buprenorphine-naloxone 8 mg-2 mg sublingual film Start: 02/16/24 2:18:00 PM EDT, 0.5 patch, SL, bid, Disp# 30 patch, Refills: 0, Note to Pharmacy: PDMP checked & CSA on file., Pharmacy: [facility]/pharmacy #[id number] Start Date: 02/16/24 Stop Date: 03/17/24 Status: Ordered CeleXA 10 mg oral tablet Start: 02/19/24 2:25:00 PM EDT, 1 tab, PO, bid Start Date: 02/19/24 Status: Ordered colchicine 0.6 mg oral tablet TAKE 2 TABLETS BY MOUTH ONCE, THEN TAKE 1 TABLET TWICE A DAY FOR 3 DAYS NEEDED FOR GOUT ATTACKS Start Date: 11/03/23 Status: Ordered Dexcom G6 Substitute Crossing Guard Kit Start: 10/11/23 8:34:00 PM EDT, See Instructions, Disp# 1 kit, Test three times daily, Note to Pharmacy: Dx E11.65, Pharmacy: [facility]/pharmacy #[id number] Start Date: 10/11/23 Status: Ordered Dexcom G6 Sensor Kit Start: 11/25/23 11:27:00 AM EDT, See Instructions, Disp# 3 kit, Refills: 5, Test three times daily, Note to Pharmacy: Dx E11.65, Pharmacy: [facility]/pharmacy #[id number] Start Date: 11/25/23 Status: Ordered DEXCOM G6 TRANSMITTER Start: 02/16/24 4:40:00 PM EDT, DEXCOM G6 TRANSMITTER, See Instructions, Disp# 1 unknown unit, Refills: 0, TEST 3 TIMES A DAY, Pharmacy [id number] Start Date: 02/16/24 Status: Ordered Dexcom G6 Transmitter Kit Start: 10/11/23 8:36:00 PM EDT, See Instructions, Disp# 1 kit, Test three times daily, Pharmacy: [facility]/pharmacy #[id number] Start Date: 10/11/23 Status: Ordered fluticasone 50 mcg/inh nasal spray Start: 09/02/23 9:54:00 AM EDT, 1 spray, each nostril, bid Start Date: 09/02/23 Status: Ordered Lantus Solostar Pen Start: 09/25/14 10:14:00 AM EDT, 55 unit =, subQ, Daily Start Date: 09/25/14 Status: Ordered levalbuterol CFC free 45 mcg/inh inhalation aerosol Start: 03/15/24 7:32:00 AM EST, 2 puff, inhaled, q6h, Disp# 15 each, Refills: 2, PRN: NEEDED FORWHEEZING, Pharmacy: [id number] Start Date: 03/15/24 Status: Ordered montelukast 10 mg oral tablet Start: 11/24/23 3:55:00 PM EDT Start Date: 11/24/23 Status: Ordered NovoLOG FlexPen 100 units/mL injectable solution Start: 12/09/23 11:19:00 AM EDT, 10 unit =, subQ, ac, Disp# 15 mL, Refills: 5, Pharmacy: [facility]/pharmacy #[id number] Start Date: 12/09/23 Status: Ordered nystatin 100,000 units/mL oral suspension Start: 03/15/24 10:09:00 PM EST, 5 mL, PO, qid, Disp# 200 mL, [id number] Start Date: 03/15/24 Status: Ordered ondansetron 4 mg oral tablet, disintegrating Start: 12/08/23 5:45:00 PM EDT, 1 tab, PO, q8h, Disp# 30 tab, Refills: 1, PRN: NEEDED FOR NAUSEA/VOMITING, Pharmacy: [id number] Start Date: 12/08/23 Status: Ordered Potassium Chloride (Vid-Bghy-Xhh M20) 20 mEq oral tablet, extended release Start: 01/04/24 11:19:00 AM EDT, 2 tab, PO, qid, Disp# 720 tab, Refills: 3, [id number] Start Date: 01/04/24 Status: Ordered predniSONE 20 mg oral tablet Start: 02/15/24 9:08:00 AM EDT Start Date: 02/15/24 Status: Ordered predniSONE 50 mg oral tablet Start: 03/08/24 1:32:00 PM EST, 1 tab, PO, Daily, Disp# 7 tab, [id number] Start Date: 03/08/24 Status: Ordered Seroquel 100 mg oral tablet Start: 02/15/24 10:04:00 AM EDT, 1 tab, PO, Daily, Disp# 90 tab, Refills: 5, [id number] Start Date: 02/15/24 Stop Date: 08/08/25 Status: Ordered Silvadene 1% topical cream Start: 03/08/24 1:33:00 PM EST, 1 appl, topical, bid, Disp# 15 g, [id number] Start Date: 03/08/24 Status: Ordered spironolactone 50 mg oral tablet Start: 02/15/24 9:57:00 AM EDT, 1 tab, PO, Daily, Disp# 90 tab, Refills: 3, Pharmacy: [facility]/pharmacy #[id number] Start Date: 02/15/24 Status: Ordered Trelegy Ellipta 200 mcg-62.5 mcg-25 mcg/inh inhalation powder Start: 07/08/22 11:13:00 AM EDT Start Date: 07/08/22 Status: Ordered UltiCare Pen Needle 32G x 4mm Start: 07/08/23 2:51:00 PM EDT, See Instructions, Disp# 100 pen_needle, Refills: 1, Use three times daily, Note to Pharmacy: E11.65, Pharmacy: [facility]/pharmacy #[id number] Start Date: 07/08/23 Status: Ordered Ventolin HFA 90 mcg/inh inhalation aerosol Start: 08/13/23 11:23:00 AM EDT, 2 puff, inhaled, qid, Disp# 8 g, Refills: 5, PRN: as needed for wheezing, Pharmacy: [facility]/pharmacy #[id number] Start Date: 08/13/23 Status: Ordered Mental Status 03/14/24 Barriers to Learning one year None evide nt Mandatory Health Literacy Documentation Yes Health Literacy Communication Barriers N ever Primary Language Thai Problem List Condition Confirmation Course Effective Dates [...] remission Confirmed Active Seasonal allergies Confirmed Active Swelling of lower extremity Confirmed Active Tobacco user Confirmed Active Weight disorder Confirmed Active Diagnosis Diagnosis Type Effective Dates Health Status Clinical Service Informant Body mass index [BMI] 39.0-39.9, adult Discharge Diagnosis 03/14/24 Non-Specified Hypokalemia Discharge Diagnosis 03/14/24 Non-Specified Swelling of lower extremity Discharge Diagnosis 03/14/24 Non-Specified COPD without exacerbation Discharge Diagnosis 03/14/24 Non-Specified Procedures Procedure Date Related Diagnosis Body Site Status Bone marrow biopsy 2013 Comple ganesh Results Laboratory List Name Date Basic Metabolic Panel (BASIC METAB PANEL ) 03/14/24 Complete Blood Count (CBC) 03/14/24 Hepatic Function Panel (HEPATIC FUNCT PA SHANE) 03/14/24 Most recent to oldest [Reference Range]: 1 eGFR CKD-EPI [>60 mL/min/1.73 m2] 55 mL/ min/1.73 m2 *LOW* (03/14/24 11:23 AM) Estimated CrCl 54.59 mL/min (03/14/24 9:00 PM) MPV [9.0-12.2 fL] 10.6 fL (03/14/24 11:23 AM) RDW [11.5-14.2 %] 20.2 % *HI* (03/14/24 AM) Anion Gap [5-14 mmol/L] 14 mmol/L (03/14/24 AM) Alb [3.5-5.2 g/dL] 4.4 g/dL (03/14/24: AM) Alk Phos [35-115 unit/L] 111 unit/L 1 (03/14/24 AM) ALT [0-33 unit/L] 18 unit/L (03/14/24 AM) AST [0-32 unit/L] 10 unit/L (03/14/24: AM) BUN [6-23 mg/dL] 42 mg/dL *HI* (03/14/24 AM) Ca [8.4-10.2 mg/dL] 10.0 mg/dL (03/14/24: AM) Cl- [98-107 mmol/L] 94 mmol/L *LOW* (03/14/24 AM) HCO3 [22-29 mmol/L] 30 mmol/L *HI* (03/14/24: AM) Cret [0.60-1.00 mg/dL] 1.12 mg/dL *HI* (03/14/24: AM) D Bili [0.0-0.3 mg/dL] <0.2 mg/dL (03/14/24: AM) Glu [74-109 mg/dL] 110 mg/dL 2 *HI* (03/14/24 AM) Hct [35-44 %] 38.6 % (03/14/24 AM) Hgb [11.7-15.0 g/dL] 11.7 g/dL (03/14/24 AM) K [3.5-5.1 mmol/L] 4.9 mmol/L (03/14/24 AM) MCH [28-33 pg] 24.9 pg *LOW* (03/14/24 AM) MCHC [32-36 g/dL] 30.3 g/dL *LOW* (11/18/24 11:23 AM) MCV [81-96 fL] 82.1 fL (03/14/24 11:23 AM) Na [136-145 mmol/L] 138 mmol/L (03/14/24 11:23 AM) Plts [150-350 K/uL] 496 K/uL *HI* (03/14/24 11:23 AM) RBC [3.90-5.00 M/uL] 4.70 M/uL (03/14/24 11: AM) T Bili [0.0-1.2 mg/dL] 0.2 mg/dL (03/14/24 11:23 AM) Prot [6.4-8.3 g/dL] 7.2 g/dL (03/14/24 11: AM) WBC [4.0-10.4 K/uL] 19.47 K/uL *HI* (03/14/24 11:23 AM) 1Result Comment: Low levels of ALKP may indicate a deficiency in zinc, magnesium, or malnutritionbutcan also be an indicator of a rare genetic disease hypophosphatasia (HPP). 2Result Comment: ADA recommendation for FASTING Serum/Plasma Glucose: Normal: 70-100 mg/dL Prediabetes: 100-125 mg/dL Diabetes: 126 mg/dL or higher Vital Signs Most recent to oldest [Reference Range]: 1 Height 155 cm (03/14/24 10:20 AM) Patient Weight 94.2 kg (03/14/24 10:20 AM) Body Mass Index 39.21 kg/m2 (03/14/24 10:20 AM) Temperature [36.5-37.9 DegC] 36.9 DegC (03/14/24 10:20 AM) Heart Rate 104 bpm (03/14/24 10:20 AM) Respiratory Rate 18 br/min (03/14/24 10:20 AM) Blood Pressure 138/78mmHg (03/14/24 10:20 AM) Cuff Pulse Pressure 60 mmHg (03/14/24 10:20 AM) Social History Social History Type Response Smoking Status Current every day li ght smoker Sex Female Sex Representation Female (finding) Emergency department Summary note * Event Display: ED Summary Patient Care team information Care Team Personnel Name: ELENA Barboza, Radha A Position: Physician Asst Exmpt - Family Med Member Role: Primary Care Provider Address: [address] [facility] [address] [place] [id number] [place] Name: MARGARET Dunn, Ruby Garcias Position: Nurse Pract - Hem/Onc Member Role: Lifetime Relationship Address: [address] [place] [id number] Care Team Related Persons Name: MO SAMUEL
[2024-03-24] MEDS: allopurinoL 300 MG TAB PO SCH (10:14)
[2024-03-24] MEDS: CITALOPRAM 20 MG TAB PO SCH (10:15)
[2024-03-24] MEDS: FLUCONAZOLE 100 MG TAB PO SCH (10:16)
[2024-03-24] MEDS: methylPREDNISolone 40 MG in SYRINGE 0 ML IV SCH (10:16)
[2024-03-24] MEDS: TORSEMIDE 100 MG TAB PO SCH (10:17)
[2024-03-24] MEDS: UMECLIDINIUM BROMIDE 62.5MCG/BLISTER 7 PUFFS/INHALER INH SCH (10:17)
[2024-03-24] MEDS: SPIRONOLACTONE 25 MG TAB PO SCH (10:23)
--- NOTE | 2024-03-24 11:37 | Electrocardiogram Report ---
Test Reason : Blood Pressure : */* mmHG Vent. Rate : 107 BPM Atrial Rate : 107 BPM P-R Int : 134 ms QRS Dur : 70 ms QT Int : 332 ms P-R-T Axes : 51 22 48 degrees QTcB Int : 443 ms Sinus tachycardia Possible Anterior infarct (cited on or before 28-Jul-2023) Abnormal ECG When compared with ECG of 07-Mar-2024 07:12, No significant change was found Confirmed by Juan Hardin ([id number]) on 03/24/2024 11:36:48 AM Referred By: Jonnie Dan Confirmed By: Juan Hardin
--- NOTE | 2024-03-24 13:49 | Pharmacy Report ---
Pharmacy Glycemic Short Note 2 - Date of Service March 24, 2024 - Glycemic Short BSG Results (Last 24 hours): 03/23/24 03/23/24 03/23/24 15:35 20:10 20:11 Glucose 208 H POC Glucose 381 H* 378 H* 03/24/24 03/24/24 03/24/24 05:46 07:40 11:25 Glucose 192 H POC Glucose 198 H 135 H OUTPATIENT ANTIDIABETIC REGIMEN: * Lantus 50 units SQ QAM * NovoLog 10 units TID with meals * A1c 8.3% 01/19/24 ASSESSMENT: * 63 year old F admitted with COPD exacerbation on IV Solu-Medrol 40mg Q12H. Patient started on similar insulin regimen as last admission, will continue at this time as BG is well controlled today on steroids, titrate as needed. PLAN FOR INPATIENT GLYCEMIC CONTROL: * Basal insulin * Lantus 68 units SQ daily * Bolus insulin * NovoLog per scale ACHS or Q6hrs while NPO * Goal Range: Low 110 mg/dL - High 140 mg/dL * Correction Factor: 15 mg/dL/unit * Nutritional / Prandial insulin per carb ratio of 1 unit per 4 grams CHO consumed
[2024-03-25 07:15] LABS: Hematocrit (blood only) 38.8 % (37.0-47.0); Mean Corpuscular Hemoglobin 24.2 pg (25.0-34.0); Mean Corpuscular Hgb Conc 30.9 g/dL (32.0-36.0); Mean Corpuscular Volume 78.4 fL (80.0-100.0); Mean Platelet Volume 10.5 fL (9.4-12.4); Platelet Count 316 K/uL (130-400); RDW Coefficient of Variation 19.6 % (11.5-14.5); RDW Standard Deviation 54.4 fL (36.4-46.3); Red Blood Count 4.95 M/uL (4.20-5.40); White Blood Count 18.29 K/ul (4.8-10.8)
[2024-03-25 07:26] LABS: BUN Creatinine Ratio 49.1 (10-20); Calcium 8.7 mg/dl (8.6-10.3); Creatinine Clr Calc Pharmacy 54.1 ml/min; Potassium 4.6 mmol/L (3.5-5.1)
--- NOTE | 2024-03-25 07:51 | Hospitalist Progress Note ---
Date of Service March 25, 2024 Assessment & Plan (1) Thrush of mouth and esophagus: (2) Heart failure with preserved ejection fraction: (3) DM II (diabetes mellitus, type II), controlled: (4) COPD exacerbation: Plan 1) Acute exacerbation of chronic obstructive pulmonary disease Hx of chronic hypercapnic respiratory failure Presented for shortness of breath and cough x 2 days No increased sputum/change of color of sputum - CXR without acute cardiopulmonary findings - CBC leukocytosis (20.65) with neutrophil predominance (19.25)- on chronic steroids outpatient - CMP anion gap 12; lactate 2.1; VBGs pH 7.46, pCO2 52 - Incentive spirometer intermittently throughout day - No home O2; O2, PRN, via NC - wean as patient tolerates - IV methylprednisolone 125mg in ED- on chronic steroids outpatient Prednisone 15mg daily - Adjust steroids to Solu-Medrol 40mg IV BID while inpatient starting 03/23 morning - Consider starting to taper the steroids 03/25 PM or 03/26 AM - Adjusted inhalers to nebulizers- Continue nebs while inpatient (2) Thrush of mouth and esophagus Per patient, also noticeable on exam at back of throat, started on nystatin outpatient; Continuous symptoms substernally when swallowing - May be secondary to chronic steroid use- would try to minimize steroids if patient tolerates - Continue nystatin rinse - Start fluconazole 400 mg p.o. x 1 NOW then 200 mg p.o. x 14 days - monitor QT (3) Heart failure (HFpEF) Presenting with SOB and cough; No fluid overload apparent in lower extremities or within lungs; States that she has an upcoming appointment with outpatient loan manager Appears to be at her baseline, so no BNP ordered - Current weight 92.4kg; Daily weights standing; I+Os - Echo 07/2023 - CXR without acute cardiopulmonary finding - CBC leukocytosis w/ neutrophil predominance- on chronic steroids - On spironolactone 50mg + Torsemide 100mg at home- continue - Promote leg elevation and frequent movement as able (4) DM II (diabetes mellitus, type II), controlled Hx of T2DM - BSG ACHS with SSI - Lantus 68 Units daily - per last hospital admission; takes NovoLog 10 U daily, Lantus 50 U every morning at home - Ozempic weekly- hold while inpatient - Most recent A1C 8.3% - Adjust regimen as needed - Pharm glycemic consult placed Plan AYAN- Quetiapine 200mg, alprazolam 0.5mg TID prn (per patient), citalopram 10mg BID Opioid use disorder- Suboxone as prescribed (buprenorphine/naloxone: 8/2 mg), 1 tab, daily AM -----change the alprazolam and Suboxone outpt dosages when discharging----- Hx of MM w/ stem cell transplant- Follows w/ oncology, will follow CBC Gout- allopurinol Dispo: Med-Surg Diet: T2DM VTE Prophylaxis: Lovenox, 40 mg, subQ, BID Code: Full Admission and Anticipated Discharge Date Admission Date: March 23, 2024 Supervising Physician Co-Signing Physician Notes I personally examined the patient and verified rosario points of history and exam, discussed case, and agree with decision making and plan documented by Dr. Schaffer. Patient is a 63-year-old female with multiple comorbidities on readmission for COPD/asthma exacerbation. Reviewed with patient this is her 18th admission this year. Encouraged efforts to discontinue smoking as this is exacerbating her condition, patient reports 3 to 4 cigarettes/day, refuses nicotine replacement therapy. At present patient appears euvolemic, do not suspect she is having exacerbation of heart failure at present. Mild diffuse end expiratory wheezes b/l, regular rate and rhythm, no acute distress. Reviewed we will be weaning down her steroids while she is in the hospital, hope to get back to her daily 15 mg of prednisone dose per pulmonary. Subjective Patient is a 63 yo F w/ a PMHx of chronic hypercapnic resp failure, bronchiectasis, bone marrow transplant status, AYAN, HFpEF, T2DM, COPD, constipation. She has been trying all of the various treatment modalities, including all of her inhalers. When she arrived at the [facility] they gave her 3 different meds, none of which seemed to help a lot. Patient has also been dealing with oral and esophageal thrush. Patient stated that she has been using her CPAP again starting last night. This morning the patient continues to be concerned about chest tightness, persistent cough, shortness of breath when not on oxygen. Review of Systems Constitutional: + body aches and + fatigue; no fever, no chills and no weakness Respiratory: + cough, + chest congestion and + dyspne a; no change in sputum and no hemoptysis Cardiovascular: + chest pain with activity (chest tightn ess w/ mild activity); no palpitations Gastrointestinal: + constipation (chronic); no abdominal p ain, no nausea and no vomiting Genitourinary: no dysuria and no urinary frequency Neurologic: + headache(s) (chronic intermittent GOMEZ's but less frequent with CPAP use) Physical Exam Constitutional: WD/WN, vitals as above Respiratory: Auscultation: + wheezes; no crackles Cardiovascular: RRR, no murmur, no edema Extremities: normal capillary refill and + calf tenderness Gastrointestinal (Abdomen): normal bowel sounds, soft, nontender, no hepatosplenomegaly Psychiatric: A+Ox3, euthymic affect Results & Data Results & Data Vital Signs (Past 12 Hours) Vital Signs Temp Pulse Pulse Pulse Resp BP Pulse Ox 03/25/24 07:39 89 17 86 L 03/25/24 07:29 36.4 C L 88 18 103/67 95 03/25/24 02:58 91 H 14 97 03/25/24 00:13 96 H 21 93 03/25/24 00:13 96 H 18 93 03/25/24 00:04 03/24/24 22:12 36.3 C L 88 18 146/74 H 94 03/24/24 19:49 100 H 18 90 O2 Del Method 03/25/24 07:39 Room Air 03/25/24 07:29 Room Air 03/25/24 02:58 03/25/24 00:13 03/25/24 00:13 Room Air, CPAP 03/25/24 00:04 Room Air, CPAP 03/24/24 22:12 Room Air, CPAP 03/24/24 19:49 Room Air (2) Heart failure with preserved ejection fraction Heart failure chronicity: chronic Qualified Code(s): I50.32 - Chronic diastolic (congestive) heart failure
[2024-03-25] MEDS: BUPRENORPHINE/NALOXONE 8/2 MG TAB SL SCH (08:33)
[2024-03-25] MEDS: SILVER SULFADIAZINE 1% CR 50 GM JAR EXT ONE (10:35)
[2024-03-25] MEDS: SUCRALFATE 1 GM/10 ML UDC PO SCH (17:17)
--- NOTE | 2024-03-26 07:08 | Electrocardiogram Report ---
Test Reason : Blood Pressure : */* mmHG Vent. Rate : 91 BPM Atrial Rate : 91 BPM P-R Int : 144 ms QRS Dur : 74 ms QT Int : 354 ms P-R-T Axes : 42 2 35 degrees QTcB Int : 435 ms Normal sinus rhythm Possible Left atrial enlargement Inferior infarct , age undetermined Abnormal ECG When compared with ECG of 23-Mar-2024 15:25, Inferior infarct is now Present Confirmed by Juan Hardin ([id number]) on 03/26/2024 7:08:23 AM Referred By: Jonnie Dan Confirmed By: Juan Hardin
[2024-03-26 07:57] LABS: Hematocrit (blood only) 40.7 % (37.0-47.0); Hemoglobin 12.6 g/dl (12.0-16.0); Mean Corpuscular Hemoglobin 24.1 pg (25.0-34.0); Mean Platelet Volume 10.8 fL (9.4-12.4); Platelet Count 293 K/uL (130-400); RDW Coefficient of Variation 19.5 % (11.5-14.5); Red Blood Count 5.22 M/uL (4.20-5.40); White Blood Count 18.51 K/ul (4.8-10.8)
[2024-03-26 08:06] LABS: BUN Creatinine Ratio 56.3 (10-20); Calcium 8.8 mg/dl (8.6-10.3); Creatinine Clr Calc Pharmacy 53.2 ml/min; Potassium 4.8 mmol/L (3.5-5.1)
[2024-03-26 08:17] LABS: Anisocytosis Present; Basophils # (auto) 0.02 K/uL (0.00-0.20); Basophils % (auto) 0.1 %; Immature Granulocytes # (auto) 0.15 K/uL (0.01-0.20); Immature Granulocytes % (auto) 0.8 %; Lymphocytes # (auto) 0.78 K/uL (1.20-3.40); Lymphocytes % (auto) 4.2 %; Microcytosis Present; Monocytes % (auto) 2.2 %; Neutrophils # (auto) 17.16 K/uL (1.40-6.50); Neutrophils % (auto) 92.7 %; Ovalocytes 1+; Polychromasia 1+; Tear Drop Cells 1+
--- NOTE | 2024-03-26 14:38 | XRay Report ---
EXAM: Radiographs of the Chest 2 Views INDICATION: Cough. TECHNIQUE: Frontal and lateral views of the chest. COMPARISON: 03/23/2024 FINDINGS: Lungs and pleural spaces: Asymmetric density right lower lung as seen on the frontal view likely reflects pleural scarring. There is mild linear scarring in the right lung base. No consolidation or pulmonary edema. No pleural effusion or pneumothorax. Heart: Normal shape and configuration. Mediastinum: Normal contour. Bones/joints: No fracture, erosion or dislocation. IMPRESSION: 1. No acute abnormality. 2. Stable opacity over the inferomedial right hemithorax likely reflects pleural scarring or plaque. This could be confirmed with CT if clinically warranted. ACT 112: Negative or not required by law. Electronically signed by Magali Olivares 03-26-2024 2:37 PM
--- NOTE | 2024-03-26 15:39 | Hospitalist Progress Note ---
Date of Service March 26, 2024 Assessment & Plan (1) Thrush of mouth and esophagus: (2) Heart failure with preserved ejection fraction: (3) DM II (diabetes mellitus, type II), controlled: (4) COPD exacerbation: Plan 1) Acute exacerbation of chronic obstructive pulmonary disease Hx of chronic hypercapnic respiratory failure Presented for shortness of breath and cough x 2 days No increased sputum/change of color of sputum - CXR without acute cardiopulmonary findings - CBC leukocytosis (20.65) with neutrophil predominance (19.25)- on chronic steroids outpatient - CMP anion gap 12; lactate 2.1; VBGs pH 7.46, pCO2 52 - Incentive spirometer intermittently throughout day - No home O2; O2, PRN, via NC - wean as patient tolerates - IV methylprednisolone 125mg in ED- on chronic steroids outpatient Prednisone 15mg daily - WBC, 18.5 <-- 15.3 <-- 20.7 - Initially on Solu-Medrol 40mg IV BID while inpatient starting 03/23 morning - Started to taper the steroids on 03/26 PM to 30 mg, IV Solu-Medrol - Adjusted inhalers to nebulizers- Continue nebs while inpatient - CXR (2 view) Impression: 1. No acute abnormality. 2. Stable opacity over the inferomedial right hemithorax likely reflects pleural scarring or plaque. This could be confirmed with CT if clinically warranted. (2) Thrush of mouth and esophagus Per patient, also noticeable on exam at back of throat, started on nystatin outpatient; Continuous symptoms substernally when swallowing - May be secondary to chronic steroid use- would try to minimize steroids if patient tolerates - Continue nystatin rinse - Start fluconazole 400 mg p.o. x 1 NOW then 200 mg p.o. x 14 days - monitor QT (3) Heart failure (HFpEF) Presenting with SOB and cough; No fluid overload apparent in lower extremities or within lungs; States that she has an upcoming appointment with outpatient global marketing intern Appears to be at her baseline, so no BNP ordered - Current weight 92.4kg; Daily weights standing; I+Os - Echo 07/2023 - CXR without acute cardiopulmonary finding, repeat CXR (03/26) see above - CBC leukocytosis w/ neutrophil predominance- on chronic steroids - On spironolactone 50mg + Torsemide 100mg at home- continue - Promote leg elevation and frequent movement as able (4) DM II (diabetes mellitus, type II), controlled Hx of T2DM - BSG ACHS with SSI - Lantus 68 Units daily - per last hospital admission; takes NovoLog 10 U daily, Lantus 50 U every morning at home - Ozempic weekly- hold while inpatient - Most recent A1C 8.3% - Adjust regimen as needed - Pharm glycemic consult placed Plan AYAN- Quetiapine 200mg, alprazolam 0.5mg TID prn (per patient), citalopram 10mg BID Opioid use disorder- Suboxone as prescribed (buprenorphine/naloxone: 8/2 mg), 1 tab, daily AM -----change the alprazolam and Suboxone outpt dosages when discharging----- Hx of MM w/ stem cell transplant- Follows w/ oncology, will follow CBC Gout- allopurinol Dispo: Med-Surg Diet: T2DM VTE Prophylaxis: Lovenox, 40 mg, subQ, BID Code: Full Admission and Anticipated Discharge Date Admission Date: March 23, 2024 Supervising Physician Co-Signing Physician Notes I personally examined the patient and verified rosario points of history and exam, discussed case, and agree with decision making and plan documented by Dr. Schaffer. Patient is a 63-year-old female with multiple comorbidities on readmission for COPD/asthma exacerbation. Patient reports having difficulty with her CPAP machine overnight, she does report using her machine at home. Patient continues to have mild diffuse end expiratory wheezes b/l, regular rate and rhythm, no acute distress. Patient reported continued tightness of chest, chest x-ray today without acute abnormality. Weaning steroids. Advised continued efforts to abstain from smoking, refuses nicotine replacement therapy. Anticipate discharge tomorrow. Subjective Patient is a 63 yo F w/ a PMHx of chronic hypercapnic resp failure, bronchiectasis, bone marrow transplant status, AYAN, HFpEF, T2DM, COPD, constipation. She has been trying all of the various treatment modalities, including all of her inhalers. Patient has also been dealing with oral and esophageal thrush. Patient stated that she has been using her CPAP again starting two night ago but said that she didn't use it last night because the machine wasn't working. This morning the patient continues to be concerned about persistent chest tightness, persistent cough, shortness of breath when not on oxygen, although her O2 sats have looked good even while on room air. Review of Systems Constitutional: + body aches and + fatigue; no fever, no chills and no weakness Respiratory: + cough, + chest congestion and + dyspne a; no change in sputum and no hemoptysis Cardiovascular: + chest pain with activity (chest tightn ess w/ mild activity); no palpitations Gastrointestinal: + constipation (chronic); no abdominal p ain, no nausea and no vomiting Genitourinary: no dysuria and no urinary frequency Neurologic: + headache(s) (chronic intermittent GOMEZ's but less frequent with CPAP use) Physical Exam Constitutional: WD/WN, vitals as above Respiratory: Auscultation: no crackles and no wheezes Cardiovascular: RRR, no murmur, no edema Extremities: normal capillary refill and + calf tenderness Gastrointestinal (Abdomen): normal bowel sounds, soft, nontender, no hepatosplenomegaly Psychiatric: A+Ox3, euthymic affect Results & Data Results & Data Vital Signs (Past 12 Hours) Vital Signs Temp Pulse Pulse Resp BP Pulse Ox O2 Del Method 03/26/24 15:01 36.7 C 116 H 18 133/80 98 Room Air 03/26/24 12:55 101 H 18 97 Room Air 03/26/24 10:47 100 H 18 159/82 H 94 Room Air 03/26/24 08:00 Room Air 03/26/24 07:31 36.5 C 100 H 18 163/101 H 96 Room Air 03/26/24 07:16 94 H 15 95 Room Air FiO2 03/26/24 15:01 03/26/24 12:55 03/26/24 10:47 03/26/24 08:00 03/26/24 07:31 03/26/24 07:16 21 Diagnostic Findings Chest X-Ray 03/26/24 14:06 EXAM: Radiographs of the Chest 2 Views INDICATION: Cough. TECHNIQUE: Frontal and lateral views of the chest. COMPARISON: 03/23/2024 FINDINGS: Lungs and pleural spaces: Asymmetric density right lower lung as seen on the frontal view likely reflects pleural scarring. There is mild linear scarring in the right lung base. No consolidation or pulmonary edema. No pleural effusion or pneumothorax. Heart: Normal shape and configuration. Mediastinum: Normal contour. Bones/joints: No fracture, erosion or dislocation. IMPRESSION: 1. No acute abnormality. 2. Stable opacity over the inferomedial right hemithorax likely reflects pleural scarring or plaque. This could be confirmed with CT if clinically warranted. ACT 112: Negative or not required by law. Electronically signed by Magali Olivares 03-26-2024 2:37 PM (2) Heart failure with preserved ejection fraction Heart failure chronicity: chronic Qualified Code(s): I50.32 - Chronic diastolic (congestive) heart failure
[2024-03-26] MEDS: methylPREDNISolone 30 MG in SYRINGE 0 ML IV SCH (20:55)
[2024-03-27 06:26] LABS: Hematocrit (blood only) 42.6 % (37.0-47.0); Hemoglobin 13.1 g/dl (12.0-16.0); Mean Corpuscular Hemoglobin 24.2 pg (25.0-34.0); Mean Corpuscular Hgb Conc 30.8 g/dL (32.0-36.0); Mean Corpuscular Volume 78.7 fL (80.0-100.0); Mean Platelet Volume 11.1 fL (9.4-12.4); Platelet Count 248 K/uL (130-400); RDW Coefficient of Variation 19.8 % (11.5-14.5); RDW Standard Deviation 53.8 fL (36.4-46.3); Red Blood Count 5.41 M/uL (4.20-5.40)
[2024-03-27 06:37] LABS: BUN Creatinine Ratio 70.2 (10-20); Calcium 9.3 mg/dl (8.6-10.3); Creatinine Clr Calc Pharmacy 56.9 ml/min; Potassium 4.8 mmol/L (3.5-5.1)
[2024-03-27 06:41] LABS: Basophils # (auto) 0.01 K/uL (0.00-0.20); Basophils % (auto) 0.1 %; Immature Granulocytes # (auto) 0.16 K/uL (0.01-0.20); Immature Granulocytes % (auto) 0.9 %; Lymphocytes # (auto) 0.54 K/uL (1.20-3.40); Lymphocytes % (auto) 3.2 %; Monocytes # (auto) 0.38 K/uL (0.11-0.59); Monocytes % (auto) 2.2 %; Neutrophils # (auto) 15.91 K/uL (1.40-6.50); Neutrophils % (auto) 93.6 %
[2024-03-27 07:16] VITALS: RESP 18
--- NOTE | 2024-03-27 08:44 | Discharge Summary ---
Date of Service March 27, 2024 Admission HPI Per Admitting Provider 63-year-old female presenting for SOB and cough x 2 days. ED course: CBC- WBC 20.65, RBC 5.62, MCHC 78.6, MCH 24.4, MCHC 31, RDW 55.1, platelets 403, neutrophils 19.28;; VBG pH 7.46, pCO2 52; CMP chloride 95, AG 12, BUN 27, BUN/creatinine ratio 31.4, glucose 208; lactate 2.1.; CXR without acute cardiopulmonary findings.; Provided with albuterol nebulizer, methylprednisolone, lorazepam in ED. Patient 63-year-old female PMHx chronic hypercapnic respiratory failure, history of asthma, COPD, HFpEF, DMT2, and AYAN with most recent hospital course 02/18 to 03/01, who presents with dyspnea x 2 days. States that she tried all of her medications at home to include her nebulizers and inhalers but did not have relief of symptoms. Started to have associated cough today and was worsening so patient decided to call her PCP who encouraged her to come in. States that she has had some chest tightness when coughing as well as substernal discomfort with swallowing secondary to previously diagnosed thrush. Having worsening shortness of breath with walking. Denying fever chills, chest pain, palpitations, pain, N/V/D/C, numbness/tingling, or LUTS. States that she has no swelling in her legs at this time. Took all a.m. medications. Please see Dr. Linton's attestation for adjustments/additions to treatment plan. Admission Exam Per Admitting Provider General: No acute distress Skin: Warm and dry Head: Normocephalic, atraumatic Eyes: PERRL, conjunctivae clear, sclera non-icteric ENT: External ear and ear canal without swelling; nose atraumatic Neck: Supple, no LAD Cardio: RRR, no M/G/R, S1 and S2 normal Resp: No respiratory distress, Lungs CTA in all lobes bilaterally, no wheezes, rales, or rhonchi Abdomen: Soft, symmetric, nontender; No masses or hepatosplenomegaly; Bowel sounds normoactive MSK: No deformities, full ROM throughout; pulses palpable and equal; no edema. Neuro: Awake, alert; Sensation intact bilaterally; CN intact Psych: Appropriate mood and affect Principal Diagnosis COPD exacerbation Discharge Exam Constitutional WD/WN, vitals as above Respiratory Auscultation: no crackles and no wheezes Cardiovascular RRR, no murmur, no edema Extremities: normal capillary refill and + calf tenderness Gastrointestinal (Abdomen) normal bowel sounds, soft, nontender, no hepatosplenomegaly Psychiatric A+Ox3, euthymic affect Discharge Data Allergies Allergy/AdvReac Type Severity Reaction Status Date / Time codeine Allergy Severe Anaphylaxis Verified 03/07/24 14:16 Iodinated Contrast Media Allergy Severe Anaphylaxis Verified 03/07/24 14:16 shellfish derived Allergy Severe Anaphylaxis Verified 03/07/24 14:16 tramadol Allergy Intermediate ITCHINESS Verified 03/07/24 14:16 pollen extracts Allergy Mild Congested Unverified 03/07/24 14:16 iohexol Allergy Unknown CAN'T Verified 03/07/24 14:16 REMEMBER diphenhydramine AdvReac Severe Anxiety Verified 03/07/24 14:16 [From Benadryl] promethazine AdvReac Intermediate Anxiety Verified 03/07/24 14:16 Consultations 03/23/24 17:05 ED Decision to Admit Stat Hospital Course (1) Thrush of mouth and esophagus: (2) Heart failure with preserved ejection fraction: (3) DM II (diabetes mellitus, type II), controlled: (4) COPD exacerbation: Plan 1) Acute exacerbation of chronic obstructive pulmonary disease Hx of chronic hypercapnic respiratory failure Presented for shortness of breath and cough x 2 days No increased sputum/change of color of sputum - CXR without acute cardiopulmonary findings - CBC leukocytosis (20.65) with neutrophil predominance (19.25)- on chronic steroids outpatient - CMP anion gap 12; lactate 2.1; VBGs pH 7.46, pCO2 52 - Incentive spirometer intermittently throughout day - No home O2; O2, PRN, via NC - wean as patient tolerates - IV methylprednisolone 125mg in ED- on chronic steroids outpatient Prednisone 15mg daily - WBC, 17.00 <-- 18.5 <-- 15.3 <-- 20.7 - Initially on Solu-Medrol 40mg IV BID while inpatient starting 03/23 morning - Started to taper the steroids on 03/26 PM to 30 mg, IV Solu-Medrol, 03/27 AM to 30 mg prednisone, PO - Adjusted inhalers to nebulizers- Continue nebs while inpatient - CXR (2 view) Impression: 1. No acute abnormality. 2. Stable opacity over the inferomedial right hemithorax likely reflects pleural scarring or plaque. This could be confirmed with CT if clinically warranted. - Pt noted to have stopped her own respiratory therapy and removed the nebulizer mask due to fact that it was spitting out droplets at her. - continue nebulized budesonide/ budesonide inhaler per previously prescribed medicines - Prescribed prednisone, 10 mg, tablets: 3 days 30 mg, 3 days 20 mg, 10 days 15 mg (300 mg prednisone in total) (2) Thrush of mouth and esophagus Per patient, also noticeable on exam at back of throat, started on nystatin outpatient; Continuous symptoms substernally when swallowing - May be secondary to chronic steroid use- would try to minimize steroids if patient tolerates - Continue nystatin rinse - Start fluconazole 400 mg p.o. x 1 NOW then 200 mg p.o. x 14 days - Prescribe fluconazole, 200 mg, PO, 10 more days - Patient advised to hold her Ativan while completing the remainder of her fluconazole course due to drug interactions or at least limit herself to 1 0.5- mg tablet daily (3) Heart failure (HFpEF) Presenting with SOB and cough; No fluid overload apparent in lower extremities or within lungs; States that she has an upcoming appointment with outpatient bacon slicer Appears to be at her baseline, so no BNP ordered - Current weight 92.4kg; Daily weights standing; I+Os - Echo 07/2023 - CXR without acute cardiopulmonary finding, repeat CXR (03/26) see above - CBC leukocytosis w/ neutrophil predominance- on chronic steroids - On spironolactone 50mg + Torsemide 100mg at home- continue - Promote leg elevation and frequent movement as able (4) DM II (diabetes mellitus, type II), controlled Hx of T2DM - BSG ACHS with SSI - Lantus 68 Units daily - per last hospital admission; takes NovoLog 10 U daily, Lantus 50 U every morning at home - Ozempic weekly- hold while inpatient - Most recent A1C 8.3% - Adjust regimen as needed - Pharm glycemic consult placed Plan AYAN- Quetiapine 200mg, alprazolam 0.5mg TID prn (per patient), citalopram 10mg BID Opioid use disorder- Suboxone as prescribed (buprenorphine/naloxone: 8/2 mg), 1 tab, daily AM Hx of MM w/ stem cell transplant- Follows w/ oncology, will follow CBC Gout- allopurinol Total Time Total Time Spent Total Time Spent (In Minutes): see attending attestation Discharge Plan Discharge Items Patient Disposition: Home - Self-Care Reason For Visit: SOB Discharge Diagnosis: COPD Exacerbation and Oral/Esophageal Thrush Activity: Resume your previous activity Non-emergency contact: Primary Care Provider and Local Driver Call non-emergency contact if: you have any medication questions and your symptoms worsen Follow-up/Referrals: Radha Barboza PA-C [Primary Care Provider] - Diet: Carb Consistent or DM2 Addtl Attending Provider Instructions: You were admitted to the hospital for shortness of breath, persistent cough concerning in context of COPD and concerns for oral and esophageal thrush. You were treated with nebulized respiratory treatments and IV steroids. A discharge summary will be sent to your primary care physician to ensure continuity of care. Please bring this discharge summary with you to your next office appointment so that your provider can review it at that time. Follow-up appointments: We have requested a follow-up appointment with your primary care physician within one week of discharge. Please call their office if you do not hear from them. Keep all your follow-up appointments as already scheduled. If you cannot make an appointment, notify your provider. Medications: Your medication list has been reviewed and reconciled upon discharge to ensure accuracy and continuity of care. An updated list of all your medications is included with your hospital discharge paperwork. Please review this list closely, and make note of any changes. We sent a new medication called prednisone to your pharmacy. Take prednisone using the following tapered schedule. Day 1 - Day 3: 30 mg, daily (3 tabs) Day 4 - Day 6: 20 mg, daily (2 tabs) Day 7 - Day 16: 15 mg, daily (1.5 tabs) Take your medications as instructed; do not skip a dose of your medicines. Make sure all of your doctors know every medicine you are taking (including [id number] medicines, vitamins, and supplements). Call your primary care provider before taking any new medicines (including [id number] medicines, vitamins, and supplements), because some of these may interact with your current medications, or may make your symptoms worse. Tell your primary care provider if you cannot afford your medications. CONTACT YOUR PRIMARY CARE PROVIDER if you experience any of the following: swelling of legs, shortness of breath shortness of breath, fevers, chills, increased sputum volume/change in sputum color Difficulty following your treatment plan, or difficulty taking medications CALL 911 OR GO TO THE EMERGENCY DEPARTMENT if you experience any of the following: Sudden, severe abdominal pain or nausea/vomiting Severe chest pain, or chest pain that radiates (moves) to your jaw or arm Sudden, severe shortness of breath or difficulty breathing Thank you for allowing us to participate in your care Pending Studies at Discharge: No Stand-Alone Forms: [facility], Smoking Cessation Medications and DC Order Prescriptions: New buprenorphine-naloxone [Suboxone] 8-2 mg film 1 film sublingual DAILY 30 Days Qty: 30 0RF fluconazole 40 mg/mL suspension for reconstitution 200 mg PO DAILY 10 Days Qty: 50 0RF prednisone 10 mg tablet 10 mg PO DIRECTED Qty: 30 0RF Rx Instructions: see taper instructions 3 tabs (30 mg) for Day 1 - Day 3; 2 tabs (20 mg) Day 4 - Day 6; 1.5 tabs (15 mg) there afterwards, per day Continued nystatin 100,000 unit/gram Powder 1 applic TOPICAL BID PRN (Reason: UNDER BREASTS NEEDED.) levalbuterol HCl 1.25 mg/3 mL solution for nebulization 1.25 mg INHALATION Q8H PRN (Reason: Shortness Of Breath Or Wheezing) albuterol sulfate 90 mcg/actuation HFA aerosol inhaler 2 puff INHALATION Q4H PRN (Reason: Shortness Of Breath Or Wheezing) ipratropium bromide 0.02 % solution 3 ml continuous nebulization QID PRN (Reason: shortness of breath) Qty: 75 0RF calcium polycarbophil [Fiber (calcium polycarbophil)] 625 mg Tablet 625 mg PO QAM Qty: 30 0RF Rx Instructions: Unable to verify OTC meds at this date/time. silver sulfadiazine 1 % cream 1 applic topical BID nystatin 100,000 unit/mL suspension 500,000 unit PO QID bumetanide 2 mg tablet 0 mg PO BID Rx Instructions: Unable to verify w/ pt if she is taking Torsemide and Bumetanide. Original Directions: 4mg by mouth in the morning and at lunch time. quetiapine 100 mg tablet 100 mg PO DAILY spironolactone 25 mg tablet 25 mg PO DAILY budesonide 0.25 mg/2 mL suspension for nebulization 0.25 mg inhalation BID allopurinol 300 mg tablet 300 mg PO DAILY levalbuterol tartrate 45 mcg/actuation HFA aerosol inhaler 2 puff INHALATION Q6H PRN (Reason: WHEEZE) fluticasone propionate [Flonase Allergy Relief] 50 mcg/actuation spray,suspension 1 spray intranasal BID Qty: 0 0RF Rx Instructions: Unable to verify OTC meds at this date/time. Trelegy Ellipta 200-62.5-25 mcg blister with device 1 ea INHALATION QAM Qty: 60 0RF insulin aspart U-100 [Novolog FlexPen U-100 Insulin] 100 unit/mL (3 mL) insulin pen 10 unit subcut TIDM ascorbic acid (vitamin C) [Vitamin C] 500 mg Tablet 1,000 mg PO DAILY Qty: 60 0RF Rx Instructions: Unable to verify OTC meds at this date/time. citalopram 10 mg tablet 10 mg PO DAILY ondansetron 4 mg tablet,disintegrating 4 mg PO Q8 PRN (Reason: NAUSEA/VOMITING) insulin glargine [Lantus Solostar U-100 Insulin] 100 unit/mL (3 mL) insulin pen 50 unit SUBCUT QAM torsemide 100 mg Tablet 100 mg PO QAM Qty: 30 5RF potassium chloride [Klor-Con M20] 20 mEq tablet,ER particles/crystals 40 meq PO BID Qty: 0 0RF Rx Instructions: PATIENT HAS NOT BEEN TAKING DIRECTED; CONFUSED ABOUT DOSE colchicine 0.6 mg capsule 0.6 mg PO DAILY PRN (Reason: joint pain) Qty: 30 0RF Held alprazolam 0.5 mg tablet 0.5 mg PO BID PRN (Reason: ANXIETY ) Hold Instructions: Resume on 04/06/24. Hold while you finish the course of fluconazole for the oral and esophageal thrush Rx Instructions: PT MAY TAKE AN EXTRA TAB FOR ACUTE PANIC ATTACKS- MAX 3 TABS DAILY Discontinued prednisone 5 mg tablet 15 mg PO DAILY 30 Days Qty: 90 0RF buprenorphine-naloxone 8-2 mg film 0.5 film sublingual BID Rx Instructions: Last filled 02/16/24 x30 day supply Discharge Orders: Discharge Order (Routine); Ordered 03/27/24 Ordered By: Nelson Schaffer Admission Data Admit Date/Time: 03/23/24 18:12 Attending Provider: Shaniqua Gracia Admit Provider: Toni Linton Primary Care Provider: Radha Barboza Other Providers: Toni Linton Other Interventions: Discharge Summary Assessment (RN) Last Done: 03/27/24 16:13 Supervising Physician Co-Signing Physician Notes I personally examined the patient and verified rosario points of history and exam, discussed case, and agree with decision making and plan documented by Dr. Schaffer. Patient is a 63-year-old female with multiple comorbidities on readmission for COPD/asthma exacerbation. Patient very anxious about discharge, states she will come right back if she is not ready. Reviewed with patient concern that home environment may not be beneficial to her current state. She states home environment is not a concern and she is getting on well with her sister. Reviewed the importance of abstaining from cigarette smoking and avoiding irritants that may exacerbate her asthma/COPD. Team reviewed at length with patient recommendations of her medications prior to discharge. Patient has follow-up scheduled with her PCP this week and also pulmonary on 04/07/2024. Reviewed with patient will need to follow-up for continued buprenorphine prescribing, she states she is not ready to wean at this time, sent prescription for patient to pharmacy, PDMP checked and appropriate.
[2024-03-27] MEDS: LANTUS PER UNIT CHARGE SC SCH (09:10)
[2024-03-27] MEDS: predniSONE 10 MG TABLET PO SCH (10:50)
[2024-03-27] MEDS: LANTUS PER UNIT CHARGE SQ SCH ×2 (11:02→12:08)
[2024-03-27 14:03] VITALS: BP 146/90; TEMP 97.9; O2SAT 97
[2024-03-27 16:19] VITALS: PULSE 87
[2024-03-27] MEDS ORDERED: LANTUS PER UNIT CHARGE SQ ONE (21:00)
[2024-03-28] MEDS ORDERED: LANTUS PER UNIT CHARGE SQ SCH ×2 (09:00)
[2024-03-28] MEDS ORDERED: LANTUS PER UNIT CHARGE SC SCH (09:00)
== END 2024-03-27 16:47 | disposition home or self-care (01) | DRG 191 ==
LOC: ED 15:14 → 3N 18:12 → SUATTDRO 18:12 → 3N 19:55

== ENCOUNTER 2024-04-19 08:53 | Inpatient (IN) ==
--- NOTE | 2024-04-19 09:15 | Emergency Department Note ---
Impression & Plan COVID-19, Elevated troponin, Acute hypoxic respiratory failure, Acute dyspnea, Elevated brain natriuretic peptide (BNP) level ED Provider Note HISTORY OF PRESENT ILLNESS: Patient is a 64-year-old female presenting with shortness of breath. Patient reports she has had progressively worsening shortness of breath over the last 3 to 4 days. She does not wear any supplemental oxygen at baseline. She states that 3 weeks ago she was on a heavy dose of prednisone. States that with her worsening shortness of breath over the last few days, she started taking 5 mg prednisone tabs that she had in her medicine cabinet. She denies any chest pain. She reports she feels like she cannot catch her breath. Denies any cough or fevers. She reports she called her lung doctors office and was referred to the emergency department for further evaluation. Patient denies any recent sick contact exposures. She has a history of DVT and PE and is on Lovenox shots. Denies any missed doses. Patient does not wear any supplemental oxygen at baseline. ROS: as above PHYSICAL EXAM: Constitutional: Patient appears in no acute distress. HENT: Head: Normocephalic and atraumatic. Eyes: EOMI, PERRL Mouth/Throat: Mucous membranes moist. Neck: Trachea midline. Neck supple. Cardiovascular: Tachycardic with regular rhythm. No murmurs, rubs or gallops. Intact distal pulses. Pulmonary/Chest: Conversationally dyspneic with increased work of breathing. Diffuse expiratory wheezes bilaterally throughout all lung soriano. Abdominal: Abdomen soft, no tenderness, rebound or guarding. Musculoskeletal: No edema, tenderness or deformity noted. Skin: Warm and dry. No rash, erythema, pallor or cyanosis Psychiatric: Appropriate mood and affect for situation. Neurological: Alert and keenly responsive. CN II-XII grossly intact, moving all extremities equally and fully. MDM: - Vitals signs showed tachycardia. - History obtained via patient. History as above. - Chronic conditions affecting care: multiple myeloma; HF; DM-2; COPD - Differential diagnoses include, but are not limited to: Congestive heart failure; acute coronary syndrome; COPD/asthma exacerbation; pulmonary edema; pulmonary embolism; pneumonia; pneumothorax; viral syndrome - Order placed for continuous cardiac monitoring. At this time, monitor showed rate of 100 bpm with normal sinus rhythm, per my interpretation. - External medical records reviewed. Oncology/hematology consultation note dated 03/29/2024 was reviewed. Patient was seen in clinic for her multiple myeloma. She is status post stem cell transplant in 2015 - EKG interpreted by myself showed normal sinus rhythm. Rate tachycardic at 102 bpm. QT 316. No acute ischemic changes. - Laboratory workup interpreted by myself showed normal WBC; stable electrolytes; slightly elevated troponin (22.8); elevated BNP (110) - CXR negative for pneumonia, per my interpretation - Viral respiratory panel positive for COVID-19 - VBG shows hypercarbia but normal pH - Patient given duoneb treatment on arrival. She became hypoxic and was placed on 3 L nasal cannula. She is given 20 mg IV Pepcid and 6 mg IV Decadron. - Discussion was had with home health care case manager about patient's case and need for admission - Hospitalist consulted for admission - [facility] ASSESSMENT AND PLAN: Diagnosis: Acute dyspnea; acute hypoxia; COVID-19 infection; elevated troponin; elevated BNP Plan: Admit Past Med/Surg History Problem List (Updated 04/19/24 @ 10:49 by Neelima Miller MD) Elevated brain natriuretic peptide (BNP) level (Acute) Acute dyspnea (Acute) Acute hypoxic respiratory failure (Acute) Elevated troponin (Acute) COVID-19 (Acute) Inhalation of smoke (Acute) Thrush of mouth and esophagus Hyperglycemia due to diabetes mellitus (Acute) Chronic hypercapnic respiratory failure Bone marrow transplant status Bronchiectasis Allergic asthma Lower extremity edema Generalized anxiety disorder Heart failure with preserved ejection fraction DM II (diabetes mellitus, type II), controlled COPD (chronic obstructive pulmonary disease) COPD exacerbation (Acute) Dyspnea D-dimer, elevated (Acute) Palpitations (Acute) Chest pain (Acute) Bilateral knee pain CHF exacerbation (Acute) COPD exacerbation (Acute) Chest pain Right knee pain Elevated troponin (Acute) Acute exacerbation of chronic obstructive pulmonary disease (Acute) Leukocytosis (Acute) Acute hypokalemia (Acute) Diabetes Hypokalemia Tobacco abuse counseling Moderate persistent asthma Constipation Acute bronchitis Pulmonary vascular congestion Medical History Normocytic hypochromic anemia Failure of outpatient treatment Bilateral edema of lower extremity Gout Tobacco use disorder Hematochezia History of pulmonary embolism Michela esophagitis Acute and chronic respiratory failure with hypoxia Chronic anticoagulation Obesity hypoventilation syndrome Multiple myeloma Last chemotherapy 2016 Follows with medical oncology in [facility] History of pulmonary embolism Acute exacerbation of chronic obstructive pulmonary disease Acute heart failure with preserved ejection fraction (HFpEF) Acute exacerbation of chronic obstructive pulmonary disease Tobacco abuse Opiate dependence Asthma Surgical History No pertinent past surgical history Family History Sister Asthma Social History Smoking Status: Current every day smoker Tobacco Type: Cigarettes Age Started Using Tobacco: 15; Cigarettes Per Day: 3-4 cigarette per day; Second Hand Exposure: Yes; Do You Dip or Chew Tobacco: No; Hx Alcohol Use: No Hx Substance Use: No Preferred Language: Upper Sorbian Communication Ability: Effective Application Support Developer Required: No Beliefs That Will Affect Care: None Current Living Situation: Family Current Living Situation Comment: Lives with sister Feels Safe at Home: Yes Assistive Devices: Oxygen - at Night Allergies Allergies Allergy/AdvReac Type Severity Reaction Status Date / Time codeine Allergy Severe Anaphylaxis Verified 04/05/24 13:37 Iodinated Contrast Media Allergy Severe Anaphylaxis Verified 04/05/24 13:37 shellfish derived Allergy Severe Anaphylaxis Verified 04/05/24 13:37 tramadol Allergy Intermediate ITCHINESS Verified 04/05/24 13:37 pollen extracts Allergy Mild Congested Unverified 04/05/24 13:37 iohexol Allergy Unknown CAN'T Verified 04/05/24 13:37 REMEMBER diphenhydramine AdvReac Severe Anxiety Verified 04/05/24 13:37 [From Benadryl] promethazine AdvReac Intermediate Anxiety Verified 04/05/24 13:37 Home Meds Home Medications Medication Instructions Recorded Confirmed levalbuterol HCl 1.25 mg/3 mL 1.25 mg inhalation Q8H PRN 01/16/23 04/05/24 solution for nebulization Shortness Of Breath Or Wheezing albuterol sulfate 90 mcg/actuation 2 puff inhalation Q4H PRN 08/30/23 04/05/24 aerosol inhaler Shortness Of Breath Or Wheezing insulin aspart U-100 100 unit/mL 10 unit subcut TIDM 11/07/23 04/05/24 (3 mL) subcutaneous pen (Novolog FlexPen U-100 Insulin aspart) alprazolam 0.5 mg tablet 0.5 mg PO BID PRN ANXIETY 02/28/24 04/05/24 citalopram 10 mg tablet 10 mg PO DAILY 02/28/24 04/05/24 insulin glargine 100 unit/mL (3 50 unit subcut QAM 02/28/24 04/05/24 mL) subcutaneous pen (Lantus Solostar U-100 Insulin) ondansetron 4 mg disintegrating 4 mg PO Q8 PRN NAUSEA/VOMITING 02/28/24 04/05/24 tablet allopurinol 300 mg tablet 300 mg PO DAILY 03/23/24 04/05/24 budesonide 0.25 mg/2 mL suspension 0.25 mg inhalation BID 03/23/24 04/05/24 for nebulization levalbuterol tartrate 45 2 puff inhalation Q6H PRN WHEEZE 03/23/24 04/05/24 mcg/actuation aerosol inhaler quetiapine 100 mg tablet 100 mg PO DAILY 03/23/24 04/05/24 silver sulfadiazine 1 % topical 1 applic topical BID 03/23/24 04/05/24 cream spironolactone 25 mg tablet 25 mg PO DAILY 03/23/24 04/05/24 bumetanide 2 mg tablet 4 mg PO .AM AND LUNCH TIME 03/28/24 04/05/24 fluticasone fur. 200 mcg-umeclid 1 ea inhalation QAM 03/28/24 04/05/24 62.5 mcg-vilant 25 mcg inhalat.powder (Trelegy Ellipta) Previous Rx's Medication Instructions Recorded fluticasone propionate 50 1 spray intranasal BID nasal 09/15/23 mcg/actuation nasal congestion #0 mL spray,suspension (Flonase Allergy Relief) ipratropium bromide 0.02 % 3 ml continuous nebulization QID 10/17/23 solution for inhalation PRN shortness of breath #75 mL calcium polycarbophil 625 mg 625 mg PO QAM #30 tabs 10/30/23 tablet (Fiber (calcium polycarbophil)) ascorbic acid (vitamin C) 500 mg 1,000 mg (2 x 500 mg) PO DAILY #60 01/02/24 tablet (Vitamin C) tabs colchicine 0.6 mg capsule 0.6 mg PO DAILY PRN joint pain #30 11/05/24 caps buprenorphine 8 mg-naloxone 2 mg 1 film sublingual DAILY 30 days 03/27/24 sublingual film (Suboxone) #30 ea prednisone 10 mg tablet 10 mg PO DIRECTED #30 tabs 03/27/24 potassium chloride 20 mEq 40 meq (2 x 20 mEq) PO DAILY #0 03/28/24 tablet,extended tabs release(part/cryst) (Klor-Con M) torsemide 100 mg tablet 50 mg (1/2 x 100 mg) PO QAM #30 03/28/24 tabs Results & Data (ED) Vital Signs Vital Signs - 24 hr 04/19/24 08:53 04/19/24 08:59 04/19/24 09:15 Temperature 36.1 C L Temperature Source Temporal Artery Scan Pulse Rate 99 H 101 H Pulse Rate from SpO2 Sensor Respiratory Rate 20 Respiratory Effort / Characteristics Spontaneous Blood Pressure 108/62 Blood Pressure Mean 77 Pulse Oximetry 88 L 92 Oxygen Delivery Method Nasal Cannula Room Air Oxygen Flow Rate 2 Sepsis Recent Fever Within 48 Hours No Sepsis New/Unexplained Change in Mental Status N/A Sepsis Action Taken by Nursing No Action Required 04/19/24 09:15 04/19/24 09:33 04/19/24 10:00 Temperature Temperature Source Pulse Rate 99 H 96 H 99 H Pulse Rate from SpO2 Sensor 99 H 95 H 96 H Respiratory Rate 17 14 15 Respiratory Effort / Characteristics Blood Pressure Blood Pressure Mean Pulse Oximetry 85 L 90 95 Oxygen Delivery Method Room Air Nasal Cannula Nasal Cannula Oxygen Flow Rate 3 3 Sepsis Recent Fever Within 48 Hours Sepsis New/Unexplained Change in Mental Status Sepsis Action Taken by Nursing Laboratory Data 04/19/24 09:25 04/19/24 09:25 Lab Results 04/19/24 Range/Units 09:25 WBC 10.01 (4.8-10.8) K/ul RBC 4.46 (4.20-5.40) M/uL Hgb 10.8 L (12.0-16.0) g/dl Hct 36.2 L (37.0-47.0) % MCV 81.2 (80.0-100.0) fL MCH 24.2 L (25.0-34.0) pg MCHC 29.8 L (32.0-36.0) g/dL RDW Std Deviation 60.1 H (36.4-46.3) fL RDW Coeff of Malick 20.7 H (11.5-14.5) % Plt Count 291 (130-400) K/uL MPV 9.9 (9.4-12.4) fL Immature Gran % (Auto) 2.1 % Neut % (Auto) 83.1 % Lymph % (Auto) 8.9 % Crisp % (Auto) 5.0 % Eos % (Auto) 0.6 % Baso % (Auto) 0.3 % Neut # (Auto) 8.32 H (1.40-6.50) K/uL Lymph # (Auto) 0.89 L (1.20-3.40) K/uL Crisp # (Auto) 0.50 (0.11-0.59) K/uL Eos # (Auto) 0.06 (0.00-0.50) K/uL Baso # (Auto) 0.03 (0.00-0.20) K/uL Immature Gran # (Auto) 0.21 H (0.01-0.20) K/uL Absolute Nucleated RBC 0.03 (0.00-0.12) K/uL Nucleated RBC % (auto) 0.3 % PT 10.3 (9.0-12.0) Seconds INR 0.9 (0.9-1.1) VBG pH 7.40 (7.36-7.41) VBG pCO2 60 H (38-50) mmHg VBG pO2 36 mmHg VBG HCO3 37 mmol/L VBG O2 Saturation 67.0 % VBG Base Excess 10.5 mEq/L Sodium 141 (136-145) mmol/L Potassium 3.9 (3.5-5.1) mmol/L Chloride 100 (98-107) mmol/L Carbon Dioxide 34 H (21-32) mmol/L Anion Gap 7 (3-11) BUN 18 (6-23) mg/dl Creatinine 0.83 (0.6-1.2) mg/dl Est Cr Clr Drug Dosing Not Reportable eGFR 79.16 BUN/Creatinine Ratio 21.7 H (10-20) Glucose 98 (70-99(Fasting)) mg/dl Calcium 8.8 (8.6-10.3) mg/dl Magnesium 1.8 (1.7-2.4) mg/dl Total Bilirubin 0.3 (0.2-1.0) mg/dl AST 17 (13-39) U/L ALT 25 (7-52) U/L Alkaline Phosphatase 109 H (34-104) U/L Troponin I High Sens 22.8 H (0-14) pg/ml B-Natriuretic Peptide 110 H (0-100) pg/ml Total Protein 6.1 (6.0-8.3) gm/dl Albumin 3.6 (3.4-5.0) gm/dl Globulin 2.5 (2.5-4.0) gm/dl Albumin/Globulin Ratio 1.4 (0.9-2) Adenovirus (PCR) Not Detected (NotDetected) B. pertussis DNA (PCR) Not Detected (NotDetected) B.parapertussis DNA PCR Not Detected (NotDetected) C. pneumoniae DNA (PCR) Not Detected (NotDetected) Coronavirus OC43 (PCR) Not Detected (NotDetected) Coronavirus HKU1 (PCR) Not Detected (NotDetected) Coronavirus 229E (PCR) Not Detected (NotDetected) SARS-CoV-2 (PCR) DETECTED A (NotDetected) Coronavirus NL63 (PCR) Not Detected (NotDetected) Human Metapneumovir PCR Not Detected (NotDetected) Influenza Type A (PCR) Not Detected (NotDetected) Influenza Type B (PCR) Not Detected (NotDetected) M. pneumoniae (PCR) Not Detected (NotDetected) Parainfluenza 1 (PCR) Not Detected (NotDetected) Parainfluenza 2 (PCR) Not Detected (NotDetected) Parainfluenza 3 (PCR) Not Detected (NotDetected) Parainfluenza 4 (PCR) Not Detected (NotDetected) RSV (PCR) Not Detected (NotDetected) Entero/Rhino (PCR) Not Detected (NotDetected) Administered Medications Discontinued Medications Albuterol (Albut/Ipratrop 3mg/0.5mg Neb 3 Ml Vial) 3 ml NEB NOW STA; Protocol Stop: 04/19/24 09:14 Last Admin: 04/19/24 09:32 Dose: 3 ml Documented By: ARS Imaging Data Radiologist's Impression: Chest X-Ray 04/19/24 09:04 XR chest 1V portable CLINICAL HISTORY: Dyspnea TECHNIQUE: Single frontal radiograph of the chest was obtained. Comparison: Comparison is made to chest radiograph 04/05/2024 FINDINGS: Exam is limited by underpenetration. The cardiomediastinal silhouette is normal. The lungs are clear. No evidence of pleural effusion or pneumothorax. IMPRESSION: No acute abnormalities and in particular no radiographic evidence of pneumonia. ACT 112: Negative or not required by law. Electronically signed by: Raheem Macias M.D. 04/19/2024 9:50 AM Discharge Plan Visit Data Chief Complaint: Asthma Stated Complaint: SOB/CRACKLING, ASTHMA/COPD ED Provider: Neelima Miller Discharge Problem: COVID-19, Elevated troponin, Acute hypoxic respiratory failure, Acute dyspnea, Elevated brain natriuretic peptide (BNP) level Forms Stand Alone Forms: [facility] [email or web address] Prescriptions Prescriptions: No Action torsemide 100 mg tablet 50 mg PO QAM Qty: 30 5RF potassium chloride [Klor-Con M20] 20 mEq tablet,ER particles/crystals 40 meq PO DAILY Qty: 0 0RF Rx Instructions: PATIENT HAS NOT BEEN TAKING DIRECTED; CONFUSED ABOUT DOSE levalbuterol HCl 1.25 mg/3 mL solution for nebulization 1.25 mg INHALATION Q8H PRN (Reason: Shortness Of Breath Or Wheezing) albuterol sulfate 90 mcg/actuation HFA aerosol inhaler 2 puff INHALATION Q4H PRN (Reason: Shortness Of Breath Or Wheezing) ipratropium bromide 0.02 % solution 3 ml continuous nebulization QID PRN (Reason: shortness of breath) Qty: 75 0RF calcium polycarbophil [Fiber (calcium polycarbophil)] 625 mg Tablet 625 mg PO QAM Qty: 30 0RF silver sulfadiazine 1 % cream 1 applic topical BID quetiapine 100 mg tablet 100 mg PO DAILY spironolactone 25 mg tablet 25 mg PO DAILY budesonide 0.25 mg/2 mL suspension for nebulization 0.25 mg inhalation BID allopurinol 300 mg tablet 300 mg PO DAILY levalbuterol tartrate 45 mcg/actuation HFA aerosol inhaler 2 puff INHALATION Q6H PRN (Reason: WHEEZE) buprenorphine-naloxone [Suboxone] 8-2 mg film 1 film sublingual DAILY 30 Days Qty: 30 0RF prednisone 10 mg tablet 10 mg PO DIRECTED Qty: 30 0RF Rx Instructions: see taper instructions 3 tabs (30 mg) for Day 1 - Day 3; 2 tabs (20 mg) Day 4 - Day 6; 1.5 tabs (15 mg) there afterwards, per day fluticasone propionate [Flonase Allergy Relief] 50 mcg/actuation spray,suspension 1 spray intranasal BID Qty: 0 0RF insulin aspart U-100 [Novolog FlexPen U-100 Insulin] 100 unit/mL (3 mL) insulin pen 10 unit subcut TIDM ascorbic acid (vitamin C) [Vitamin C] 500 mg Tablet 1,000 mg PO DAILY Qty: 60 0RF citalopram 10 mg tablet 10 mg PO DAILY alprazolam 0.5 mg tablet 0.5 mg PO BID PRN (Reason: ANXIETY ) Hold Instructions: Resume on 04/06/24. Hold while you finish the course of fluconazole for the oral and esophageal thrush Rx Instructions: PT MAY TAKE AN EXTRA TAB FOR ACUTE PANIC ATTACKS- MAX 3 TABS DAILY ondansetron 4 mg tablet,disintegrating 4 mg PO Q8 PRN (Reason: NAUSEA/VOMITING) insulin glargine [Lantus Solostar U-100 Insulin] 100 unit/mL (3 mL) insulin pen 50 unit SUBCUT QAM colchicine 0.6 mg capsule 0.6 mg PO DAILY PRN (Reason: joint pain) Qty: 30 0RF bumetanide 2 mg tablet 4 mg PO .AM AND LUNCH TIME Trelegy Ellipta 200-62.5-25 mcg blister with device 1 ea INHALATION QAM Referrals Referrals: Radha Barboza PA-C [Primary Care Provider] -
[2024-04-19] MEDS: ALBUT/IPRATROP 3MG/0.5MG NEB 3 ML VIAL NEB STA (09:32)
[2024-04-19 09:40] LABS: Base Excess VBG 10.5 mEq/L; HCO3 VBG 37 mmol/L; PCO2 VBG 60 mmHg (38-50); PO2 VBG 36 mmHg
--- NOTE | 2024-04-19 09:51 | XRay Report ---
XR chest 1V portable CLINICAL HISTORY: Dyspnea TECHNIQUE: Single frontal radiograph of the chest was obtained. Comparison: Comparison is made to chest radiograph 04/05/2024 FINDINGS: Exam is limited by underpenetration. The cardiomediastinal silhouette is normal. The lungs are clear. No evidence of pleural effusion or pneumothorax. IMPRESSION: No acute abnormalities and in particular no radiographic evidence of pneumonia. ACT 112: Negative or not required by law. Electronically signed by: Raheem Macias M.D. 04/19/2024 9:50 AM
[2024-04-19 09:59] LABS: Basophils # (auto) 0.03 K/uL (0.00-0.20); Basophils % (auto) 0.3 %; Eosinophils # (auto) 0.06 K/uL (0.00-0.50); Eosinophils % (auto) 0.6 %; Hematocrit (blood only) 36.2 % (37.0-47.0); Hemoglobin 10.8 g/dl (12.0-16.0); Immature Granulocytes # (auto) 0.21 K/uL (0.01-0.20); Immature Granulocytes % (auto) 2.1 %; Lymphocytes # (auto) 0.89 K/uL (1.20-3.40); Lymphocytes % (auto) 8.9 %; Mean Corpuscular Hemoglobin 24.2 pg (25.0-34.0); Mean Corpuscular Hgb Conc 29.8 g/dL (32.0-36.0); Mean Corpuscular Volume 81.2 fL (80.0-100.0); Mean Platelet Volume 9.9 fL (9.4-12.4); Neutrophils # (auto) 8.32 K/uL (1.40-6.50); Neutrophils % (auto) 83.1 %; Nucleated RBC # (auto) 0.03 K/uL (0.00-0.12); Nucleated RBC % (auto) 0.3 %; Platelet Count 291 K/uL (130-400); RDW Coefficient of Variation 20.7 % (11.5-14.5); RDW Standard Deviation 60.1 fL (36.4-46.3); Red Blood Count 4.46 M/uL (4.20-5.40); White Blood Count 10.01 K/ul (4.8-10.8)
[2024-04-19 10:09] LABS: Alanine Aminotransferase 25 U/L (7-52); Albumin Globulin Ratio 1.4 (0.9-2); Albumin Level 3.6 gm/dl (3.4-5.0); Alkaline Phosphatase 109 U/L (34-104); Anion Gap 7 (3-11); Aspartate Aminotransferase 17 U/L (13-39); BUN Creatinine Ratio 21.7 (10-20); Bilirubin,Total 0.3 mg/dl (0.2-1.0); Blood Urea Nitrogen 18 mg/dl (6-23); Calcium 8.8 mg/dl (8.6-10.3); Carbon Dioxide 34 mmol/L (21-32); Chloride 100 mmol/L (98-107); Globulin 2.5 gm/dl (2.5-4.0); Glucose 98 mg/dl (70-99(Fasting)); Magnesium 1.8 mg/dl (1.7-2.4); Potassium 3.9 mmol/L (3.5-5.1); Sodium 141 mmol/L (136-145); Total Protein 6.1 gm/dl (6.0-8.3)
[2024-04-19 10:14] LABS: Troponin I High Sensitivity 22.8 pg/ml (0-14)
[2024-04-19 10:36] LABS: Adenovirus PCR Not Detected (NotDetected); Bordetella parapertussis PCR Not Detected (NotDetected); Bordetella pertussis PCR Not Detected (NotDetected); Chlamydia pneumoniae PCR Not Detected (NotDetected); Coronavirus 229E PCR Not Detected (NotDetected); Coronavirus CoV-2 (COVID19)PCR DETECTED (NotDetected); Coronavirus HKU1 PCR Not Detected (NotDetected); Coronavirus NL63 PCR Not Detected (NotDetected); Coronavirus OC43PCR Not Detected (NotDetected); Human Metapneumovirus PCR Not Detected (NotDetected); Influenza A PCR Not Detected (NotDetected); Influenza B PCR Not Detected (NotDetected); Mycoplasma pneumoniae PCR Not Detected (NotDetected); Parainfluenza Virus 1 PCR Not Detected (NotDetected); Parainfluenza Virus 2 PCR Not Detected (NotDetected); Parainfluenza Virus 3 PCR Not Detected (NotDetected); Parainfluenza Virus 4 PCR Not Detected (NotDetected); Respiratory Syncytial VirusPCR Not Detected (NotDetected); Rhinovirus/Enterovirus PCR Not Detected (NotDetected)
[2024-04-19 10:46] LABS: INR 0.9 (0.9-1.1); Prothrombin Time 10.3 Seconds (9.0-12.0)
[2024-04-19] MEDS: FAMOTIDINE 20MG IV PUSH 20 MG/5 ML SYR IV STA (10:50)
[2024-04-19] MEDS: dexAMETHasone**PF** 10 MG/ML VIAL IV ONE (10:50)
[2024-04-19 11:07] LABS: Anisocytosis Present; Ovalocytes 1+; Polychromasia 1+
--- NOTE | 2024-04-19 11:54 | History & Physical Report ---
Date of Service April 19, 2024 Assessment & Plan (1) COVID-19: Plan: 64-year-old female with significant past medical history of chronic hypercapnic respiratory failure, COPD, diabetes found to have COVID-19 on admission. CXR not showing signs of pneumonia, and no leukocytosis. Treating for acute COVID- 19 with steroids and supportive care. #Acute + chronic respiratory failure with hypoxia/COVID PNA/COPD COVID 19 diagnosed on admission; Symptomatic with SOB + reported wheezing by patient - No leukopenia or leukocytosis - CBC am - VBG pH 7.40, pCO2 60, HCO3 37; history of chronic hypercapnic respiratory f ailure, asthma, and COPD - CXR without acute findings - Required 3L O2 via NC upon initial arrival; no O2 at baseline - Oxygen as needed; although attempt to wean off as tolerated - IC Q1H - Continue outpatient inhalers in nebulizer form --> Duonebs q4h, Formoterol/budesonide nebs BID - On prednisone 10 mg daily--> Increase to 40mg IV q8hr while inpatient given on exam; taper prior to dc - COVID precautions - Pt not a candidate for antivirals at this time; pt understood and agreeable #Michela of esophagus Per patient, not noticeable on exam at back of throat, was started on nystatin outpatient per last admission; Continuous symptoms substernally when swallowing - May be secondary to chronic steroid use- would try to minimize steroids if patient tolerates but given need to increase for current dx, will continue management - Swish + swallow BID - May utilize IV ativan prn if unable to swallow; for anxiety #HFpEF Presenting with SOB x 7 days; not currently presenting to be volume overloaded - Daily weights standing and I+Os - Echo 07/2023 -study technically limited, appear to be normal EF without significant wall motion abnormality - CXR without acute cardiopulmonary finding - CBC without leukocytosis but w/ neutrophil predominance - Spironolactone + Torsemide at home- continue - Promote leg elevation and frequent movement as able #DMT2 - BSG ACHS with SSI - Lantus 68 Units daily - per last hospital admission; takes NovoLog 10 U daily, Lantus 50 U every morning at home - Ozempic weekly- hold while inpatient - Most recent A1C 8.3% - Adjust regimen as needed - Pharm glycemic consult placed Chronic conditions: AYAN- Quetiapine 200mg, alprazolam 0.5mg TID prn (per patient) but may utilize IV Ativan while inpatient 2/2 to thrush, citalopram 10mg BID Opioid use disorder- Suboxone as prescribed, taking as prescribed per pt H/o MM w/ stem cell transplant- Follows w/ oncology, will follow CBC Gout- No acute attacks; Allopurinol Dispo: Admit Diet: T2DM VTE Prophylaxis: Lovenox Code: Full This document was dictated utilizing GigsWiz. Please excuse anygrammatical errors that may be secondary to use of this software. (2) Michela esophagitis: (3) Acute heart failure with preserved ejection fraction (HFpEF): (4) Opiate dependence: (5) DM II (diabetes mellitus, type II), controlled: (6) COPD (chronic obstructive pulmonary disease): Admission and Anticipated Discharge Date Admission Date: 04/19/2024 History of Present Illness Chief Complaint: SOB Primary Care Provider: Radha Jabari 64-year-old female presenting to ED for increased work of breathing relates to asthma, was encouraged by PCP to be evaluated in ED. ED course: CBC H&H 10.8/36.2, MCH 24.2, MCHC 29.8, RDW 60.1, neutrophils 8.32 without leukocytosis, lymphocytes 0.89; PT/INR 10.3/0.9; VBG's pH 7.40, pCO2 60, HCO3 37; CMP CO2 34, BUN/creatinine ratio 21.7, alkaline phosphatase 109; troponin 22.8, pending repeat; BNP 110; BioFire positive for COVID; CXR without acute abnormalities and no radiographic evidence of pneumonia; EKG sinus tachycardia rate around 102, nonspecific T wave abnormalities in lateral leads.; Provided with famotidine, dexamethasone and albuterol in ED. Patient 64-year-old female PMHx chronic hypercapnic respiratory failure, history of asthma, COPD, HFpEF, DMT2, and AYAN with most recent hospital course 03/20 to 03/27 who is presenting today with difficulties breathing x around 1 week. Patient states that approximate 1 week ago she started to feel not herself, feeling more fatigue and noticed that she was having increased wheezing. 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 States that she thinks she had sick contact exposure from a family member. States that she has been utilizing nebulizer treatments at home and inhalers at home as but is still having a productive cough. Did have 1 episode of chest pressure approximately 3 days prior to arrival which is since resolved. Denying fever/chills, chest pain, palpitations, abdominal pain, N/V/D/C, numbness/tingling, LUTS, lightheadedness, or LOC. Took a.m. medications. Please see Dr. Ellsworth's attestation for adjustments/additions to treatment plan. Allergies Allergy/AdvReac Type Severity Reaction Status Date / Time codeine Allergy Severe Anaphylaxis Verified 04/05/24 13:37 Iodinated Contrast Media Allergy Severe Anaphylaxis Verified 04/05/24 13:37 shellfish derived Allergy Severe Anaphylaxis Verified 04/05/24 13:37 tramadol Allergy Intermediate ITCHINESS Verified 04/05/24 13:37 pollen extracts Allergy Mild Congested Unverified 04/05/24 13:37 iohexol Allergy Unknown CAN'T Verified 04/05/24 13:37 REMEMBER diphenhydramine AdvReac Severe Anxiety Verified 04/05/24 13:37 [From Benadryl] promethazine AdvReac Intermediate Anxiety Verified 04/05/24 13:37 Home Medications Medication Instructions Recorded Confirmed Type levalbuterol HCl 1.25 mg/3 mL 1.25 mg inhalation Q8H PRN 01/16/23 04/19/24 History solution for nebulization Shortness Of Breath Or Wheezing albuterol sulfate 90 mcg/actuation 2 puff inhalation Q4H PRN 08/30/23 04/19/24 History aerosol inhaler Shortness Of Breath Or Wheezing fluticasone propionate 50 1 spray intranasal BID nasal 09/15/23 04/19/24 Rx mcg/actuation nasal congestion #0 mL spray,suspension (Flonase Allergy Relief) ipratropium bromide 0.02 % 3 ml continuous nebulization QID 10/17/23 04/19/24 Rx solution for inhalation PRN shortness of breath #75 mL calcium polycarbophil 625 mg 625 mg PO QAM #30 tabs 10/30/23 04/19/24 Rx tablet (Fiber (calcium polycarbophil)) insulin aspart U-100 100 unit/mL 10 unit subcut TIDM 11/07/23 04/19/24 History (3 mL) subcutaneous pen (Novolog FlexPen U-100 Insulin aspart) ascorbic acid (vitamin C) 500 mg 1,000 mg (2 x 500 mg) PO DAILY #60 01/02/24 04/19/24 Rx tablet (Vitamin C) tabs alprazolam 0.5 mg tablet 0.5 mg PO BID PRN ANXIETY 02/28/24 04/19/24 History citalopram 10 mg tablet 10 mg PO DAILY 02/28/24 04/19/24 History insulin glargine 100 unit/mL (3 50 unit subcut QAM 02/28/24 04/19/24 History mL) subcutaneous pen (Lantus Solostar U-100 Insulin) ondansetron 4 mg disintegrating 4 mg PO Q8 PRN NAUSEA/VOMITING 02/28/24 04/19/24 History tablet colchicine 0.6 mg capsule 0.6 mg PO DAILY PRN joint pain #30 03/01/24 04/19/24 Rx caps allopurinol 300 mg tablet 300 mg PO DAILY 03/23/24 04/19/24 History budesonide 0.25 mg/2 mL suspension 0.25 mg inhalation BID 03/23/24 04/19/24 History for nebulization levalbuterol tartrate 45 2 puff inhalation Q6H PRN WHEEZE 03/23/24 04/19/24 History mcg/actuation aerosol inhaler quetiapine 100 mg tablet 100 mg PO DAILY 03/23/24 04/19/24 History silver sulfadiazine 1 % topical 1 applic topical BID 03/23/24 04/19/24 History cream spironolactone 25 mg tablet 25 mg PO DAILY 03/23/24 04/19/24 History buprenorphine 8 mg-naloxone 2 mg 1 film sublingual DAILY 30 days 03/27/24 04/19/24 Rx sublingual film (Suboxone) #30 ea bumetanide 2 mg tablet 4 mg PO .AM AND LUNCH TIME 03/28/24 04/19/24 History fluticasone fur. 200 mcg-umeclid 1 ea inhalation QAM 03/28/24 04/19/24 History 62.5 mcg-vilant 25 mcg inhalat.powder (Trelegy Ellipta) potassium chloride 20 mEq 40 meq (2 x 20 mEq) PO DAILY #0 03/28/24 04/19/24 Rx tablet,extended tabs release(part/cryst) (Klor-Con M) torsemide 100 mg tablet 50 mg (1/2 x 100 mg) PO QAM #30 03/28/24 04/19/24 Rx tabs Past Med/Surg History Problem List Elevated brain natriuretic peptide (BNP) level (Acute) Acute dyspnea (Acute) Acute hypoxic respiratory failure (Acute) Elevated troponin (Acute) COVID-19 (Acute) Inhalation of smoke (Acute) Thrush of mouth and esophagus Hyperglycemia due to diabetes mellitus (Acute) Chronic hypercapnic respiratory failure Bone marrow transplant status Bronchiectasis Allergic asthma Lower extremity edema Generalized anxiety disorder Heart failure with preserved ejection fraction DM II (diabetes mellitus, type II), controlled COPD (chronic obstructive pulmonary disease) COPD exacerbation (Acute) Dyspnea D-dimer, elevated (Acute) Palpitations (Acute) Chest pain (Acute) Bilateral knee pain CHF exacerbation (Acute) COPD exacerbation (Acute) Chest pain Right knee pain Elevated troponin (Acute) Acute exacerbation of chronic obstructive pulmonary disease (Acute) Leukocytosis (Acute) Acute hypokalemia (Acute) Diabetes Hypokalemia Tobacco abuse counseling Moderate persistent asthma Constipation Acute bronchitis Pulmonary vascular congestion Medical History Normocytic hypochromic anemia Failure of outpatient treatment Bilateral edema of lower extremity Gout Tobacco use disorder Hematochezia History of pulmonary embolism Michela esophagitis Acute and chronic respiratory failure with hypoxia Chronic anticoagulation Obesity hypoventilation syndrome Multiple myeloma Last chemotherapy 2017 Follows with medical oncology in [facility] History of pulmonary embolism Acute exacerbation of chronic obstructive pulmonary disease Acute heart failure with preserved ejection fraction (HFpEF) Acute exacerbation of chronic obstructive pulmonary disease Tobacco abuse Opiate dependence Asthma Surgical History No pertinent past surgical history Family History Sister Asthma Social History Smoking Status: Current every day smoker Tobacco Type: Cigarettes Age Started Using Tobacco: 15; Cigarettes Per Day: 3-4 cigarette per day; Second Hand Exposure: Yes; Do You Dip or Chew Tobacco: No; Hx Alcohol Use: No Hx Substance Use: No Preferred Language: Mongolian Communication Ability: Effective Well Flow Operator Required: No Beliefs That Will Affect Care: None Current Living Situation: Family Current Living Situation Comment: Lives with sister Feels Safe at Home: Yes Assistive Devices: Oxygen - at Night Review of Systems Review of Systems: All systems reviewed & are unremarkable except as noted in Subjective Physical Exam Physical Exam: General: No acute distress Skin: Warm and dry, without rashes or lesions Head: Normocephalic, atraumatic Eyes: PERRL, conjunctivae clear, sclera non-icteric; EOM intact ENT: External ear and ear canal without swelling; nose atraumatic; good dentition, tongue normal appearance, pharynx normal without signs of thrush in posterior pharynx Neck: Supple, no LAD Cardio: RRR, no M/G/R, S1 and S2 normal Resp: No respiratory distress, expiratory wheezing throughout, otherwise lungs CTA in all lobes bilaterally, no rales or rhonchi Abdomen: Soft, symmetric, nontender; No masses or hepatosplenomegaly; Bowel sounds normoactive MSK: No deformities, full ROM throughout; pulses palpable and equal; trace pitting edema BLE. Neuro: Awake, alert; Muscle strength 5/5 bilaterally in UE/LE; Sensation intact bilaterally; CN grossly intact Psych: Appropriate mood and affect; good judgement and insight. Results & Data Results & Data Vital Signs (Past 12 Hours) Vital Signs Temp Pulse Resp BP Pulse Ox O2 Del Method O2 Flow Rate 04/19/24 10:00 99 H 15 95 Nasal Cannula 3 04/19/24 09:33 96 H 14 90 Nasal Cannula 3 04/19/24 09:15 99 H 17 85 L Room Air 04/19/24 09:15 101 H 04/19/24 08:59 36.1 C L 99 H 20 108/62 92 Room Air 04/19/24 08:53 88 L Nasal Cannula 2 Laboratory Results 04/19/24 09:25 WBC 10.01 RBC 4.46 Hgb 10.8 L Hct 36.2 L MCV 81.2 MCH 24.2 L MCHC 29.8 L RDW Std Deviation 60.1 H RDW Coeff of Malick 20.7 H Plt Count 291 MPV 9.9 Immature Gran % (Auto) 2.1 Neut % (Auto) 83.1 Lymph % (Auto) 8.9 Sheridan % (Auto) 5.0 Eos % (Auto) 0.6 Baso % (Auto) 0.3 Neut # (Auto) 8.32 H Lymph # (Auto) 0.89 L Sheridan # (Auto) 0.50 Eos # (Auto) 0.06 Baso # (Auto) 0.03 Immature Gran # (Auto) 0.21 H Absolute Nucleated RBC 0.03 Nucleated RBC % (auto) 0.3 Polychromasia 1+ Anisocytosis Present Ovalocytes 1+ PT 10.3 INR 0.9 VBG pH 7.40 VBG pCO2 60 H VBG pO2 36 VBG HCO3 37 VBG O2 Saturation 67.0 VBG Base Excess 10.5 Sodium 141 Potassium 3.9 Chloride 100 Carbon Dioxide 34 H Anion Gap 7 BUN 18 Creatinine 0.83 Est Cr Clr Drug Dosing Not Reportable eGFR 79.16 BUN/Creatinine Ratio 21.7 H Glucose 98 Calcium 8.8 Magnesium 1.8 Total Bilirubin 0.3 AST 17 ALT 25 Alkaline Phosphatase 109 H Troponin I High Sens 22.8 H B-Natriuretic Peptide 110 H Total Protein 6.1 Albumin 3.6 Globulin 2.5 Albumin/Globulin Ratio 1.4 Adenovirus (PCR) Not Detected B. pertussis DNA (PCR) Not Detected B.parapertussis DNA PCR Not Detected C. pneumoniae DNA (PCR) Not Detected Coronavirus OC43 (PCR) Not Detected Coronavirus HKU1 (PCR) Not Detected Coronavirus 229E (PCR) Not Detected SARS-CoV-2 (PCR) DETECTED A Coronavirus NL63 (PCR) Not Detected Human Metapneumovir PCR Not Detected Influenza Type A (PCR) Not Detected Influenza Type B (PCR) Not Detected M. pneumoniae (PCR) Not Detected Parainfluenza 1 (PCR) Not Detected Parainfluenza 2 (PCR) Not Detected Parainfluenza 3 (PCR) Not Detected Parainfluenza 4 (PCR) Not Detected RSV (PCR) Not Detected Entero/Rhino (PCR) Not Detected Diagnostic Findings Chest X-Ray 04/19/24 09:04 XR chest 1V portable CLINICAL HISTORY: Dyspnea TECHNIQUE: Single frontal radiograph of the chest was obtained. Comparison: Comparison is made to chest radiograph 04/05/2024 FINDINGS: Exam is limited by underpenetration. The cardiomediastinal silhouette is normal. The lungs are clear. No evidence of pleural effusion or pneumothorax. IMPRESSION: No acute abnormalities and in particular no radiographic evidence of pneumonia. ACT 112: Negative or not required by law. Electronically signed by: Raheem Macias M.D. 04/19/2024 9:50 AM Code Status & VTE Plan Code Status Full VTE Prophylaxis Plan VTE Prophylaxis will be ordered: Yes Supervising Physician Co-Signing Physician Notes Patient seen and examined, chart reviewed, case discussed with Tato Horn PA-C and I agree with the assessment and plan as above except as otherwise noted Labs and images reviewed Janae is seen at the bedside. Acute on chronic respiratory failure due to COVID- pneumonia. She is hypoxic at time of admission on 3 L nasal cannula. Wheezing is improving but not completely resolved post steroids. No signs of superimposed bacterial pneumonia. Will admit for COVID-pneumonia with hypoxia. Agree with treatment with dexamethasone daily. Patient is 7 days into her illness. Reassess benefits of remdesivir discussed, will defer this on admission. Chest x-ray does not show any superimposed heart failure. Agree with above. PG Care Time/CCT Total # of Minutes Spent Total Time Spent with Patient: Total time spent is greater than 50% in coordination of care (as documented) at patient's floor/unit and/or counseling patient: Coding Level of Care Code 83657 INT INP/OBS CARE MIN Diagnoses COVID-19 U07.1 Michela esophagitis B37.81 Acute heart failure with preserved ejection fraction (HFpEF) I50.31 Opioid dependence in remission F11.21 Substance use status: in remission DM II (diabetes mellitus, type II), controlled E11.9 COPD (chronic obstructive pulmonary disease) J44.9 COPD type: unspecified COPD (4) Opiate dependence Substance use status: in remission Qualified Code(s): F11.21 - Opioid dependence, in remission (6) COPD (chronic obstructive pulmonary disease) COPD type: unspecified COPD Qualified Code(s): J44.9 - Chronic obstructive pulmonary disease, unspecified
[2024-04-19] MEDS: LORazepam 2 MG/1 ML VIAL IV ONE (12:06)
[2024-04-19] MEDS ORDERED: CARBOHYDRATES FOR HYPOGLYCEMIA PO PRN (13:53)
[2024-04-19] MEDS ORDERED: PHARMACY GLYCEMIC MGMT CONSULT PRN (13:53)
[2024-04-19] MEDS ORDERED: GLUCAGON FOR INJ 1 MG VIAL SQ PRN (13:53)
[2024-04-19] MEDS ORDERED: POLYETHYLENE (MIRALAX) 17 GM PACK PO PRN (13:53)
[2024-04-19] MEDS ORDERED: GLUCOSE 10 TAB/TUBE PO PRN (13:53)
[2024-04-19] MEDS: Patient's HEIGHT &/or WEIGHT Needed SCH (14:11)
[2024-04-19] MEDS ORDERED: BUMETANIDE 1 MG TAB PO SCH (14:30)
[2024-04-19] MEDS: INSULIN ASPART PER UNIT CHARGE SC SCH (14:39)
--- NOTE | 2024-04-19 14:53 | Pharmacy Report ---
Pharmacy Glycemic Short Note 2 - Date of Service April 19, 2024 - Glycemic Short BSG Results (Last 24 hours): 04/19/24 09:25 Glucose 98 OUTPATIENT ANTIDIABETIC REGIMEN: * Lantus 50 units SQ QAM * NovoLog 10 units SQ TIDM * HbA1c 8.3% (01/19/24) ASSESSMENT: * Janae is a 64 YOF admitted with shortness of breath and a history of type 2 diabetes mellitus. Pharmacy has been consulted for glycemic management while inpatient. Janae is familiar to the glycemic service. * Upon admission, respiratory biofire positive for COVID-19. She was started on nasal canula and IV dexamethasone 6mg was added per COVID protocol. She has been managed on steroids previously on past admissions, will use this data to guide dosing this admission. Basal insulin and NovoLog started at previously used dosing. Will continue to monitor and titrate. PLAN FOR INPATIENT GLYCEMIC CONTROL: * Hold outpatient oral diabetes medications * Basal insulin * Lantus 68 units SQ QAM * Bolus insulin * NovoLog per scale ACHS or Q6hrs while NPO * Goal Range: Low 110 mg/dL - High 140 mg/dL * Correction Factor: 15 mg/dL/unit * Nutritional / Prandial insulin per carb ratio of 1 unit per 4 grams CHO c onsumed
[2024-04-19] MEDS: ALBUT/IPRATROP 3MG/0.5MG NEB 3 ML VIAL NEB SCH (15:23)
[2024-04-19] MEDS: ALPRAZolam 0.5 MG TABLET PO PRN (15:43)
--- NOTE | 2024-04-19 16:23 | Electrocardiogram Report ---
Test Reason : Blood Pressure : */* mmHG Vent. Rate : 102 BPM Atrial Rate : 102 BPM P-R Int : 146 ms QRS Dur : 70 ms QT Int : 316 ms P-R-T Axes : 45 18 87 degrees QTcB Int : 411 ms Sinus tachycardia Abnormal ECG When compared with ECG of 05-Apr-2024 16:54, Nonspecific T wave abnormality now evident in Lateral leads Confirmed by Nelson Kenny [id number]) on 04/19/2024 4:23:08 PM Referred By: Confirmed By: Nelson Kenny
[2024-04-19 18:20] LABS: Appearance Urine Clear (Clear); Bilirubin Urine Negative (Negative); Blood Urine Negative (Negative); Color Urine Yellow; Glucose Urine UA 3+ (Negative); Ketones Urine Negative (Negative); Leukocyte Esterase Urine Negative (Negative); Nitrite Urine Negative (Negative); Protein Urine Negative (Negative); Specific Gravity Urine 1.014 (1.000-1.030); Urobilinogen Urine Negative (Negative); pH Urine 5.5 (4.5-7.5)
[2024-04-19] MEDS: BUDESONIDE 0.25 MG/2 ML VIAL (PULMICORT) NEB SCH (20:04)
[2024-04-19] MEDS: FORMOTEROL 20 MCG/2 ML VIAL NEB SCH (20:04)
[2024-04-19] MEDS: SILVER SULFADIAZINE 1% CR 50 GM JAR TOP SCH (21:29)
[2024-04-19] MEDS: NYSTATIN SUSP 500,000 U/5 ML UDC PO SCH (21:53)
[2024-04-20] MEDS: DEXTROSE 50% 50 ML SYRINGE IV PRN (01:21)
[2024-04-20] MEDS: GLUCOSE 40% GEL 15 GM TUBE PO PRN (01:32)
[2024-04-20 06:36] LABS: Hematocrit (blood only) 41.3 % (37.0-47.0); Hemoglobin 12.5 g/dl (12.0-16.0); Mean Corpuscular Hemoglobin 24.1 pg (25.0-34.0); Mean Corpuscular Hgb Conc 30.3 g/dL (32.0-36.0); Mean Corpuscular Volume 79.6 fL (80.0-100.0); Mean Platelet Volume 9.8 fL (9.4-12.4); Nucleated RBC # (auto) 0.02 K/uL (0.00-0.12); Nucleated RBC % (auto) 0.2 %; Platelet Count 290 K/uL (130-400); RDW Standard Deviation 59.6 fL (36.4-46.3); Red Blood Count 5.19 M/uL (4.20-5.40)
[2024-04-20] MEDS: BUPRENORPHINE/NALOXONE 8/2 MG TAB SL SCH (08:15)
[2024-04-20] MEDS: CITALOPRAM 20 MG TAB PO SCH (08:16)
[2024-04-20] MEDS: POTASSIUM CHLORIDE CRTAB 20 MEQ TABCR PO SCH (08:16)
[2024-04-20] MEDS: QUEtiapine FUMARATE 100 MG TABLET PO SCH (08:16)
[2024-04-20] MEDS: allopurinoL 300 MG TAB PO SCH (08:16)
[2024-04-20] MEDS: SPIRONOLACTONE 25 MG TAB PO SCH (08:16)
[2024-04-20] MEDS: TORSEMIDE 10 MG TAB PO SCH (08:17)
[2024-04-20] MEDS: COLCHICINE 0.6 MG TAB PO PRN (08:17)
[2024-04-20] MEDS: ASCORBIC ACID 500 MG TAB PO SCH (08:17)
[2024-04-20] MEDS: LANTUS PER UNIT CHARGE SQ SCH (09:00)
[2024-04-20] MEDS: ACETAMINOPHEN 325 MG TAB PO PRN (13:15)
--- NOTE | 2024-04-20 16:36 | Hospitalist Progress Note ---
Date of Service April 20, 2024 Assessment & Plan (1) COVID-19: Plan: 64-year-old female with significant past medical history of chronic hypercapnic respiratory failure, COPD, diabetes found to have COVID-19 on admission. CXR not showing signs of pneumonia, and no leukocytosis. Treating for acute COVID- 19 with steroids and supportive care. #Acute + chronic respiratory failure with hypoxia and hypercapnea/COVID PNA/COPD COVID 19 diagnosed on admission appears c/w bronchitis type pathology superimposed on COPD. got steroids initially - she generally prefers to not be on steroids if at all possible - and since she appears stable/hopefully slowly improving - holding off at this time. continue nebs/inhalers/supportive care #Michela of esophagus Per patient, not noticeable on exam at back of throat, was started on nystatin outpatient per last admission; Continuous symptoms substernally when swallowing - May be secondary to steroid inhaler - Swish + swallow BID - possible EGD if doesn't improve #headache - Seems consistent with both a musculoskeletal tension headache as well as the general malaise from being ill with a viral process. Gentle OMT done as above. Continue current pain regimen #HFpEFchronic - continue home meds #DMT2 - pharmacy glycemic consult appreciated Chronic conditions: AYAN- Quetiapine 200mg, alprazolam 0.5mg TID prn (per patient) but may utilize IV Ativan while inpatient 2/2 to thrush, citalopram 10mg BID Opioid use disorder- Suboxone as prescribed, taking as prescribed per pt H/o MM w/ stem cell transplant- Follows w/ oncology, will follow CBC Gout- No acute attacks; Allopurinol Dispo: Anticipate home once doing better/feeling better. Diet: T2DM VTE Prophylaxis: Lovenox Code: Full This document was dictated utilizing Tego. Please excuse any grammatical errors that may be secondary to use of this software. (2) Michela esophagitis: (3) Acute heart failure with preserved ejection fraction (HFpEF): (4) Opiate dependence: (5) DM II (diabetes mellitus, type II), controlled: (6) COPD (chronic obstructive pulmonary disease): Admission and Anticipated Discharge Date Admission Date: April 19, 2024 Subjective feels a degree of chest tightness and shortness of breath as well as a headache and overall fatigue and malaise. Has been feeling this way for several days at least prior to admission. Review of Systems Review of Systems: All systems reviewed & are unremarkable except as noted in HPI & below Physical Exam Physical Exam: In general she is awake and alert oriented pleasant but quite fatigued. No overt distress. HEENT normocephalic atraumatic mucous membranes moist, right greater than left suboccipitals high tone/tender/decreased range of motioninhibitory pressure and gentle unwinding donepatient tolerated well. Lungs somewhat diminished throughout with faint scattered rhonchi no accessory muscle use no conversational dyspnea no wheezing. Skin without rashes pallor or icterus. Neuro without focal deficits. Results & Data Results & Data Vital Signs (Past 12 Hours) Vital Signs Temp Pulse Pulse Resp BP Pulse Ox O2 Del Method 04/20/24 16:23 104 H 92 Nasal Cannula 04/20/24 16:20 98.1 F 18 135/79 04/20/24 15:53 113 H 04/20/24 14:42 110 H 15 86 L Room Air 04/20/24 11:25 98.1 F 111 H 20 132/77 90 Room Air 04/20/24 10:33 110 H 19 89 L Room Air 04/20/24 08:15 Room Air 04/20/24 07:42 97.7 F 91 H 18 161/97 H 100 Nebulizer 04/20/24 07:38 105 H 23 93 Room Air 04/20/24 07:24 87 O2 Flow Rate FiO2 04/20/24 16:23 3 04/20/24 16:20 04/20/24 15:53 04/20/24 14:42 21 04/20/24 11:25 04/20/24 10:33 21 04/20/24 08:15 04/20/24 07:42 04/20/24 07:38 21 04/20/24 07:24 PG Care Time/CCT Total # of Minutes Spent Total Time Spent with Patient: Total time spent is greater than 50% in coordination of care (as documented) at patient's floor/unit and/or counseling patient: Coding Level of Care Code 17491 SUB INP/OBS CARE 2/35MIN Diagnoses COVID-19 U07.1 Michela esophagitis B37.81 Acute heart failure with preserved ejection fraction (HFpEF) I50.31 Opioid dependence in remission F11.21 Substance use status: in remission DM II (diabetes mellitus, type II), controlled E11.9 COPD (chronic obstructive pulmonary disease) J44.9 COPD type: unspecified COPD (4) Opiate dependence Substance use status: in remission Qualified Code(s): F11.21 - Opioid dependence, in remission (6) COPD (chronic obstructive pulmonary disease) COPD type: unspecified COPD Qualified Code(s): J44.9 - Chronic obstructive pulmonary disease, unspecified
[2024-04-20] MEDS: KETOROLAC TROMETHAMINE 15 MG/ML VIAL IV ONE (22:35)
[2024-04-21 06:52] LABS: Hematocrit (blood only) 38.1 % (37.0-47.0); Hemoglobin 11.3 g/dl (12.0-16.0); Mean Corpuscular Hemoglobin 23.9 pg (25.0-34.0); Mean Corpuscular Hgb Conc 29.7 g/dL (32.0-36.0); Mean Corpuscular Volume 80.7 fL (80.0-100.0); Mean Platelet Volume 9.2 fL (9.4-12.4); Nucleated RBC # (auto) 0.03 K/uL (0.00-0.12); Nucleated RBC % (auto) 0.3 %; Platelet Count 291 K/uL (130-400); RDW Standard Deviation 60.2 fL (36.4-46.3); Red Blood Count 4.72 M/uL (4.20-5.40)
[2024-04-21 07:13] LABS: BUN Creatinine Ratio 34.7 (10-20); Potassium 3.6 mmol/L (3.5-5.1)
[2024-04-21] MEDS: ONDANSETRON 4 MG OD TAB PO PRN (07:24)
[2024-04-21] MEDS: oxyCODONE HCL IR 5 MG TAB (IMMEDIATE RELEASE) PO STA (08:16)
[2024-04-21] MEDS: ENOXAPARIN INJ 40 MG/0.4 ML SYR SQ SCH (08:16)
[2024-04-21] MEDS: NYSTATIN SUSP 500,000 U/5 ML UDC PO SCH (08:17)
[2024-04-21] MEDS ORDERED: LANTUS PER UNIT CHARGE SQ SCH (09:00)
[2024-04-21] MEDS: LANTUS PER UNIT CHARGE SQ SCH (09:17)
[2024-04-21] MEDS: dexAMETHasone 6 MG in SYRINGE 0 ML IV SCH (09:18)
--- NOTE | 2024-04-21 10:25 | Pharmacy Report ---
Pharmacy Glycemic Short Note 2 - Date of Service April 21, 2024 - Glycemic Short BSG Results (Last 24 hours): 04/20/24 04/20/24 04/20/24 12:04 17:06 19:52 Glucose POC Glucose 188 H 182 H 218 H 04/20/24 04/21/24 04/21/24 22:01 05:57 08:12 Glucose 89 POC Glucose 86 105 H OUTPATIENT ANTIDIABETIC REGIMEN: * Lantus 50 units SQ QAM * NovoLog 10 units SQ TIDM * HbA1c 8.3% (01/19/24) ASSESSMENT: 04/20 * Patient received total of 94 units of insulin yesterday, of which 68 units were basal insulin * Fasting BSG 89 mg/dL - scaled back basal to 45 units once daily as fasting BSG trending down * Loosened novolog parameters since blood sugars trending down last evening likely due to steroids wearing off * Provider now reordering DXM 6 mg iv daily later this AM - may potentially add small dose of NPH at lunch time to help cover steroid effects 04/19 * Janae is a 64 YOF admitted with shortness of breath and a history of type 2 diabetes mellitus. Pharmacy has been consulted for glycemic management while inpatient. Janae is familiar to the glycemic service. * Upon admission, respiratory biofire positive for COVID-19. She was started on nasal canula and IV dexamethasone 6mg was added per COVID protocol. She has been managed on steroids previously on past admissions, will use this data to guide dosing this admission. Basal insulin and NovoLog started at previously used dosing. Will continue to monitor and titrate. PLAN FOR INPATIENT GLYCEMIC CONTROL: * Hold outpatient oral diabetes medications * Basal insulin * Lantus 45 units once daily * NPH 10-15 units (starting at lunch time - to cover IV dex effects, then daily thereafter) * Bolus insulin * NovoLog per scale ACHS or Q6hrs while NPO * Goal Range: Low 110 mg/dL - High 140 mg/dL * Correction Factor: 20 mg/dL/unit * Nutritional / Prandial insulin per carb ratio of 1 unit per 6 grams CHO consumed
[2024-04-21] MEDS ORDERED: SOD PHOSPHATE/SOD BIPHOSPHATE ENEMA 132 ML BTL PR PRN (12:12)
--- NOTE | 2024-04-21 12:23 | Hospitalist Progress Note ---
Date of Service April 21, 2024 Assessment & Plan (1) COVID-19: (2) DM II (diabetes mellitus, type II), controlled: (3) COPD (chronic obstructive pulmonary disease): (4) Heart failure with preserved ejection fraction: Plan This patient is a 64-year-old female with PMH of chronic hypercapnic and hypoxic respiratory failure, COPD, DM 2, multiple myeloma, generalized anxiety disorder, gout, who presented with worsening dyspnea and COPD exacerbation, found to have COVID-19 without pneumonia on admission. #Acute + chronic respiratory failure with hypoxia and hypercapnia/COVID-19/COPD exacerbation-COVID 19 diagnosed on admission, CXR negative, requiring 3 LNC when typically she is on room air at rest. With diffuse wheezing ongoing. She was outside the window for treatment with Remdesivir Resume Decadron 6 Mg IV once daily-she is on chronic steroids and will need to be weaned back to 15 mg daily of prednisone after discharge Continue bronchodilators, maintenance inhalers/nebulizers Tylenol as needed for headache and will give one-time dose of oxycodone for severe headache related to COVID Supportive care #headache-Seems consistent with both a musculoskeletal tension headache as well as the general malaise from being ill with a viral process. Gentle OMT done by hospitalist on 04/20 Continue Tylenol, Toradol as needed and oxycodone sparingly as needed #Michela of esophagus-resolved dc nystatin # Chronic HFpEFno acute issues. Always has some lower extremity edema. Recent venous reflux studies were negative. Follows with CHF clinic and recently had t orsemide dose lowered to 50 mg. However, her spironolactone dose is supposed to be 50 mg daily-she has been getting 25 mg here Increase spironolactone 50 mg daily and continue torsemide 50 mg daily Continue potassium supplement and follow BMP Daily weights, strict I's and O's, change diet to low-sodium and fluid restricted 2000 mL daily as she has a tendency to drink too much fluid #DMII-hemoglobin A1c not checked in over 3 months and was uncontrolled at that time at 8.4%.Pharmacy glycemic consult appreciated. Adding IV steroids back on 04/21 Check hemoglobin A1c in the morning Continue basal and bolus insulin Holding home semaglutide AYAN-an ongoing issue that frequently contributes to somatic complaints. Her Seroquel was dosed for the a.m. here which is causing fatigue Change quetiapine to 100mg p.o. at bedtime rather than the a.m. Continue alprazolam 0.5mg TID prn Change citalopram to 20 mg p.o. at bedtime which is how she has been taking it at home Opioid use disorder-continue Suboxone 8 Mg daily H/o MM w/ stem cell transplant remotely-has known lytic bone lesion on rib on chest imaging, follows w/ oncology locally now, commonly has leukocytosis and abnormal SPEP. Was supposed to have a PET scan as an outpatient but has not yet been done Will ask nurse navigator to assist in making sure the PET scan is ordered/scheduled-message sent Gout- No acute attacks Continue allopurinol Dispo: Ongoing stay but can downgrade to medical/surgical unit. Anticipate home once doing better/feeling better. She typically has prolonged hospitalizations- would likely be stable for discharged home in 1 to 2 days VTE Prophylaxis: Does have a history of DVT and previously on therapeutic Lovenox which was discontinued for rectal bleeding a couple of months ago. Continue Lovenox 40 Mg SQ once daily Code: Full Admission and Anticipated Discharge Date Admission Date: April 19, 2024 Subjective Patient reports ongoing headache and fatigue related to multiple interruptions through the night from nursing staff. Feels short of breath but this is chronic. Reports pain in every joint in her body. She is feeling very fatigued but it appears she has been receiving Seroquel in the morning Telemetry with normal sinus rhythm, PACs, PVCs, rates in the 90s. 1 brief run of PAT Physical Exam Constitutional: WD/WN, vitals as above Respiratory: normal respiratory effort; no cough Auscultation: + wheezes (Diffusely); no crackles and no rhonchi Cardiovascular: Rate/Rhythm: regular rate and regular rhythm Heart Sounds: no murmur Extremities: + edema (2+ pitting edema legs to the knees bilateral ly) Skin: Dry flaking skin on legs bilaterally Psychiatric: A+Ox3, euthymic affect Results & Data Results & Data Vital Signs (Past 12 Hours) Vital Signs Temp Pulse Pulse Resp BP Pulse Ox O2 Del Method 04/21/24 12:18 36.6 C 109 H 16 115/87 96 Nebulizer 04/21/24 08:15 Nasal Cannula 04/21/24 07:34 36.6 C 91 H 16 129/84 97 Nasal Cannula 04/21/24 07:15 93 H 04/21/24 03:28 36.7 C 95 H 16 105/73 96 Nasal Cannula 04/21/24 02:40 98 H 14 96 Nasal Cannula O2 Flow Rate 04/21/24 12:18 04/21/24 08:15 3 04/21/24 07:34 3 04/21/24 07:15 04/21/24 03:28 3 04/21/24 02:40 2 Laboratory Results CBC, BMP reviewed PG Care Time/CCT Total # of Minutes Spent Total Time Spent with Patient: Total time spent is greater than 50% in coordination of care (as documented) at patient's floor/unit and/or counseling patient: Coding Level of Care Code 62026 SUB INP/OBS CARE MIN Diagnoses COVID-19 U07.1 DM II (diabetes mellitus, type II), controlled E11.9 COPD (chronic obstructive pulmonary disease) J44.9 COPD type: unspecified COPD Chronic heart failure with preserved ejection fraction I50.32 Heart failure chronicity: chronic (3) COPD (chronic obstructive pulmonary disease) COPD type: unspecified COPD Qualified Code(s): J44.9 - Chronic obstructive pulmonary disease, unspecified (4) Heart failure with preserved ejection fraction Heart failure chronicity: chronic Qualified Code(s): I50.32 - Chronic diastolic (congestive) heart failure
[2024-04-21] MEDS: SPIRONOLACTONE 25 MG TAB PO ONE (13:02)
[2024-04-21] MEDS: QUEtiapine FUMARATE 100 MG TABLET PO SCH (20:46)
[2024-04-21] MEDS: CITALOPRAM 20 MG TAB PO SCH (20:47)
[2024-04-22] MEDS: INSULIN ASPART PER UNIT CHARGE SC SCH (00:23)
[2024-04-22 09:39] LABS: BUN Creatinine Ratio 32.8 (10-20); Calcium 9.3 mg/dl (8.6-10.3); Creatinine Clr Calc Pharmacy 94.9 ml/min; Potassium 3.8 mmol/L (3.5-5.1)
[2024-04-22] MEDS: KETOROLAC TROMETHAMINE 15 MG/ML VIAL IV PRN (09:42)
[2024-04-22] MEDS: SPIRONOLACTONE 25 MG TAB PO SCH (09:45)
[2024-04-22] MEDS: NovoLIN-N (NPH) PER UNIT CHARGE SQ SCH (10:09)
[2024-04-22] MEDS: oxyCODONE HCL IR 5 MG TAB (IMMEDIATE RELEASE) PO STA (10:33)
[2024-04-22 11:50] LABS: Estimated Average Glucose 235 mg/dl; Hemoglobin A1C 9.8 % (4.5-5.6)
--- NOTE | 2024-04-22 13:43 | Hospitalist Progress Note ---
Date of Service April 22, 2024 Assessment & Plan (1) COVID-19: (2) DM II (diabetes mellitus, type II), controlled: (3) COPD (chronic obstructive pulmonary disease): (4) Heart failure with preserved ejection fraction: Plan This patient is a 64-year-old female with PMH of chronic hypercapnic and hypoxic respiratory failure, COPD, DM 2, multiple myeloma, generalized anxiety disorder, gout, who presented with worsening dyspnea and COPD exacerbation, found to have COVID-19 without pneumonia on admission. #Acute + chronic respiratory failure with hypoxia and hypercapnia/COVID-19/COPD exacerbation-COVID 19 diagnosed on admission, CXR negative, requiring 3 LNC when typically she is on room air at rest. With diffuse wheezing ongoing. She was outside the window for treatment with Remdesivir continue Dexamethasone 6 mg daily but change from IV to p.o. -she is on chronic steroids and will need to be weaned back to 15 mg daily of prednisone after discharge Continue bronchodilators, maintenance inhalers/nebulizers Tylenol as needed for headache and will repeat one-time dose of oxycodone for severe headache related to COVID hypoxia seems to have improved somewhat has been on 2 L today Supportive care #headache- Continue Tylenol, Toradol as needed and oxycodone sparingly as needed # Chronic HFpEFno acute issues. Always has some lower extremity edema. Recent venous reflux studies were negative. recently torsemide decreased from 100 down to 50, continue spironolactone 50 mg BMP today is normal with normal BUN, weight up 5 pounds and reports increased edema so will give torsemide 100 mg in a.m. continue potassium supplement #DMII- hemoglobin A1c 9.8% Continue basal and bolus insulin, pharmacist managing. currently with some steroid-induced hyperglycemia Holding home semaglutide AYAN-an ongoing issue that frequently contributes to somatic complaints. Change quetiapine to 100mg p.o. at bedtime rather than the a.m. Continue alprazolam 0.5mg TID prn Change citalopram to 20 mg p.o. at bedtime which is how she has been taking it at home Opioid use disorder-continue Suboxone 8 Mg daily H/o MM w/ stem cell transplant remotely-has known lytic bone lesion on rib on chest imaging, follows w/ oncology locally now, commonly has leukocytosis and abnormal SPEP. Was supposed to have a PET scan as an outpatient but has not yet been done asked nurse navigator to assist in making sure the PET scan is ordered/scheduled-message sent Gout- No acute attacks Continue allopurinol Dispo: Anticipate home once doing better/feeling better. She typically has prolonged hospitalizations-would likely be stable for discharged home in 1 to 2 days VTE Prophylaxis: Does have a history of DVT and previously on therapeutic Lovenox which was discontinued for rectal bleeding a couple of months ago. Continue Lovenox 40 Mg SQ once daily Admission and Anticipated Discharge Date Admission Date: April 19, 2024 Subjective Continues to feel poorly with myalgias, headache, fatigue, cough, dyspnea Thinks leg swelling increased compared to when outpatient diuretics reduced Physical Exam 2 Physical Exam: PHYSICAL EXAMINATION Last 24h vital signs reviewed, see documentation in flowsheet General: comfortable appearing, no distress, sitting in chair HEENT: Normocephalic, atraumatic, pupils round and equal, sclerae anicteric, no conjunctival injection, moist mucus membranes Lungs: Normal respiratory effort. speaking in full sentences fairly good air movement, scattered coarse sounds especially left base, bilateral wheezing on late expiration Heart: Regular rate and rhythm, no murmurs. No JVD Abdomen: Soft, nontender, nondistended. Bowel sounds present. Extremities: Warm, dry, well-perfused. 2+ lower extremity edema. Neuro: Alert and oriented x 4, face symmetric, moves 4 extremities well Psych: Normal affect and behavior Results & Data Results & Data Vital Signs (Past 12 Hours) Vital Signs Temp Pulse Pulse Resp BP Pulse Ox O2 Del Method 04/22/24 10:39 Room Air 04/22/24 08:29 98.4 F 86 18 135/82 95 Room Air 04/22/24 07:27 88 20 89 L Nasal Cannula 04/22/24 03:41 86 13 95 04/22/24 03:40 86 13 95 CPAP O2 Flow Rate 04/22/24 10:39 04/22/24 08:29 04/22/24 07:27 2 04/22/24 03:41 2 04/22/24 03:40 2 Laboratory Results 04/21/24 05:57 04/22/24 08:45 PG Care Time/CCT Total # of Minutes Spent Total Time Spent with Patient: Total time spent is greater than 50% in coordination of care (as documented) at patient's floor/unit and/or counseling patient: Coding Level of Care Code 92709 SUB INP/OBS CARE MIN Diagnoses COVID-19 U07.1 DM II (diabetes mellitus, type II), controlled E11.9 COPD (chronic obstructive pulmonary disease) J44.9 COPD type: unspecified COPD Chronic heart failure with preserved ejection fraction I50.32 Heart failure chronicity: chronic (3) COPD (chronic obstructive pulmonary disease) COPD type: unspecified COPD Qualified Code(s): J44.9 - Chronic obstructive pulmonary disease, unspecified (4) Heart failure with preserved ejection fraction Heart failure chronicity: chronic Qualified Code(s): I50.32 - Chronic diastolic (congestive) heart failure
--- NOTE | 2024-04-22 14:45 | Pharmacy Report ---
Pharmacy Glycemic Short Note 2 - Date of Service April 22, 2024 - Glycemic Short BSG Results (Last 24 hours): 04/21/24 04/21/24 04/21/24 17:10 20:20 20:20 Glucose POC Glucose 234 H 327 H* 310 H* 04/22/24 04/22/24 04/22/24 00:11 08:07 08:45 Glucose 124 H POC Glucose 173 H 148 H 04/22/24 12:04 Glucose POC Glucose 212 H OUTPATIENT ANTIDIABETIC REGIMEN: * Lantus 50 units SQ QAM * NovoLog 10 units SQ TIDM * HbA1c 8.3% (01/19/24) ASSESSMENT: 04/21 * Patient received total of 87 units of insulin yesterday, of which 45 units were basal * Fasting BSG 124 mg/dl - will continue with same basal. BSGs however trending up yesterday evening, RN reporting patient snacking but could also be due to IV dexamethasone as well. Will give small supplemental NPH dose this AM for IV dexamethasone * Steroids changing to PO tomorrow, anticipate needs to be less, will reevaluate tomorrw 04/20 * Patient received total of 94 units of insulin yesterday, of which 68 units were basal insulin * Fasting BSG 89 mg/dL - scaled back basal to 45 units once daily as fasting BSG trending down * Loosened novolog parameters since blood sugars trending down last evening l ikely due to steroids wearing off * Provider now reordering DXM 6 mg iv daily later this AM - may potentially add small dose of NPH at lunch time to help cover steroid effects 04/19 * Janae is a 64 YOF admitted with shortness of breath and a history of type 2 diabetes mellitus. Pharmacy has been consulted for glycemic management while inpatient. Janae is familiar to the glycemic service. * Upon admission, respiratory biofire positive for COVID-19. She was started on nasal canula and IV dexamethasone 6mg was added per COVID protocol. She has been managed on steroids previously on past admissions, will use this data to guide dosing this admission. Basal insulin and NovoLog started at previously used dosing. Will continue to monitor and titrate. PLAN FOR INPATIENT GLYCEMIC CONTROL: * Hold outpatient oral diabetes medications * Basal insulin * Lantus 45 units once daily * NPH 10 x 1 (to cover IV dex) * Bolus insulin * NovoLog per scale ACHS or Q6hrs while NPO * Goal Range: Low 110 mg/dL - High 140 mg/dL * Correction Factor: 20 mg/dL/unit * Nutritional / Prandial insulin per carb ratio of 1 unit per 6 grams CHO consumed
[2024-04-22] MEDS: guaiFENesin SUGAR FREE 100 MG/5 ML UDC PO PRN (18:09)
[2024-04-22] MEDS: CITALOPRAM 20 MG TAB PO SCH (20:38)
[2024-04-22] MEDS ORDERED: CITALOPRAM 20 MG TAB PO SCH (21:00)
[2024-04-23] MEDS: oxyCODONE HCL IR 5 MG TAB (IMMEDIATE RELEASE) PO PRN (09:08)
[2024-04-23] MEDS: TORSEMIDE 100 MG TAB PO SCH (11:28)
[2024-04-23] MEDS: dexAMETHasone 4 MG TAB PO SCH (11:28)
--- NOTE | 2024-04-23 15:23 | Hospitalist Progress Note ---
Date of Service April 23, 2024 Assessment & Plan (1) COVID-19: (2) DM II (diabetes mellitus, type II), controlled: (3) COPD (chronic obstructive pulmonary disease): (4) Heart failure with preserved ejection fraction: Plan This patient is a 64-year-old female with chronic hypercapnic and hypoxic respiratory failure, complex lung disease including asthma and COPD with severe obstructive disease and steroid dependence, DM 2, admitted with acute exacerbation of COPD/asthma related to COVID-19 #Acute + chronic respiratory failure with hypoxia and hypercapnia/COVID-19/COPD exacerbation-COVID 19 diagnosed on admission, CXR negative, requiring 3 LNC when typically she is on room air at rest. With diffuse wheezing ongoing. She was outside the window for treatment with Remdesivir continue dexamethasone 6 mg daily po - she is on chronic steroids and will need to be weaned back to 15 mg daily of prednisone after discharge Continue bronchodilators, maintenance inhalers/nebulizers, continue nocturnal NIV Tylenol as needed Acute hypoxia resolved, now on room air at rest which is her baseline Supportive care #headache- related to COVID, rhinosinusitis Continue Tylenol, Toradol as needed and oxycodone sparingly as needed Flonase/ocean nasal # Chronic HFpEFno acute issues. Always has some lower extremity edema. Recent venous reflux studies were negative. recently torsemide decreased from 100 down to 50, continue spironolactone 50 mg -torsemide 100 mg today, AM BMP continue potassium supplement #DMII- hemoglobin A1c 9.8% Continue basal and bolus insulin, pharmacist managing. currently with some steroid-induced hyperglycemia Holding home semaglutide -BG at goal 04/23 AYAN-an ongoing issue that frequently contributes to somatic complaints. continue quetiapine, alprazolam, citalopram Opioid use disorder-continue Suboxone 8 Mg daily H/o MM w/ stem cell transplant remotely-has known lytic bone lesion on rib on chest imaging, adrenal mass,follows w/ oncology locally now, commonly has leukocytosis and abnormal SPEP. Was supposed to have a PET scan as an outpatient as well as bone marrow biopsy but has not yet been done asked nurse navigator to assist in making sure the PET scan, bone marrow biopsy will get scheduled Gout- No acute attacks, continue allopurinol, colchicine prn Esophagitis - February had thrush, treated with fluzonazole, nystatin. c/o painful and difficult swallowing. resume nystatin Dispo: home soon VTE Prophylaxis: Does have a history of DVT and previously on therapeutic Lovenox which was discontinued for rectal bleeding a couple of months ago. Continue Lovenox 40 Mg SQ once daily Admission and Anticipated Discharge Date Admission Date: April 19, 2024 Subjective Coughing overnight which causing chest discomfort Continues with myalgias, headache, nasal congestion Our CPAP alarming frequently overnight Doesn't feel well enough to go home today Physical Exam 2 Physical Exam: PHYSICAL EXAMINATION Last 24h vital signs reviewed, see documentation in flowsheet General: sitting up in chair HEENT: Normocephalic, atraumatic, pupils round and equal, sclerae anicteric, no conjunctival injection, moist mucus membranes Lungs: frequent cough, full sentences, lungs relatively clear, late exp wheeze sounds forced/upper airway Heart: Regular rate and rhythm, no murmurs. No JVD Abdomen: Soft, nontender, nondistended. Bowel sounds present. Extremities: Warm, dry, well-perfused. 2+ lower extremity edema unchanged. Neuro: Alert and oriented x 4, face symmetric, moves 4 extremities well Psych: Normal affect and behavior Results & Data Results & Data Vital Signs (Past 12 Hours) Vital Signs Temp Pulse Resp BP Pulse Ox O2 Del Method 04/23/24 10:39 99 H 18 91 Room Air 04/23/24 09:10 Room Air 04/23/24 08:52 97.9 F 88 18 150/87 H 93 Room Air 04/23/24 07:32 85 18 90 Room Air Laboratory Results 04/21/24 05:57 04/22/24 08:45 PG Care Time/CCT Total # of Minutes Spent Total Time Spent with Patient: Total time spent is greater than 50% in coordination of care (as documented) at patient's floor/unit and/or counseling patient: Coding Level of Care Code 80427 SUB INP/OBS CARE 2/35MIN Diagnoses COVID-19 U07.1 DM II (diabetes mellitus, type II), controlled E11.9 COPD (chronic obstructive pulmonary disease) J44.9 COPD type: unspecified COPD Chronic heart failure with preserved ejection fraction I50.32 Heart failure chronicity: chronic (3) COPD (chronic obstructive pulmonary disease) COPD type: unspecified COPD Qualified Code(s): J44.9 - Chronic obstructive pulmonary disease, unspecified (4) Heart failure with preserved ejection fraction Heart failure chronicity: chronic Qualified Code(s): I50.32 - Chronic diastolic (congestive) heart failure
[2024-04-23] MEDS: FLUTICASONE PROPIONATE NA SPR 16 GM BTL SCH (17:54)
[2024-04-23] MEDS: NYSTATIN SUSP 500,000 U/5 ML UDC PO SCH (17:56)
[2024-04-24] MEDS: NovoLIN-N (NPH) PER UNIT CHARGE SQ SCH (09:16)
--- NOTE | 2024-04-24 09:38 | Pharmacy Report ---
Pharmacy Glycemic Short Note 2 - Date of Service April 24, 2024 - Glycemic Short BSG Results (Last 24 hours): 04/23/24 04/23/24 04/23/24 12:57 17:37 19:40 POC Glucose 145 H 229 H 321 H* 04/23/24 04/24/24 19:41 08:11 POC Glucose 298 H 215 H OUTPATIENT ANTIDIABETIC REGIMEN: * Lantus 50 units SQ QAM * NovoLog 10 units SQ TIDM * HbA1c 8.3% (01/19/24) ASSESSMENT: 04/24 * Patient received total of 83 units of insulin yesterday, of which 45 units were basal with Lantus * NPH not given d/t steroids changed from IV to PO yesterday * Will add NPH back daily with dexamethasone today as BG maria to 229, 321mg/dl throughout the day yesterday without it. 04/21 * Patient received total of 87 units of insulin yesterday, of which 45 units were basal * Fasting BSG 124 mg/dl - will continue with same basal. BSGs however trending up yesterday evening, RN reporting patient snacking but could also be due to IV dexamethasone as well. Will give small supplemental NPH dose this AM for IV dexamethasone * Steroids changing to PO tomorrow, anticipate needs to be less, will reevaluate tomorrw 04/20 * Patient received total of 94 units of insulin yesterday, of which 68 units were basal insulin * Fasting BSG 89 mg/dL - scaled back basal to 45 units once daily as fasting BSG trending down * Loosened novolog parameters since blood sugars trending down last evening likely due to steroids wearing off * Provider now reordering DXM 6 mg iv daily later this AM - may potentially add small dose of NPH at lunch time to help cover steroid effects 04/19 * Janae is a 64 YOF admitted with shortness of breath and a history of type 2 diabetes mellitus. Pharmacy has been consulted for glycemic management while inpatient. Janae is familiar to the glycemic service. * Upon admission, respiratory biofire positive for COVID-19. She was started on nasal canula and IV dexamethasone 6mg was added per COVID protocol. She has been managed on steroids previously on past admissions, will use this data to guide dosing this admission. Basal insulin and NovoLog started at previously used dosing. Will continue to monitor and titrate. PLAN FOR INPATIENT GLYCEMIC CONTROL: * Basal insulin * Lantus 45 units once daily * NPH 15 units SQ daily with PO dexamethasone * Bolus insulin * NovoLog per scale ACHS or Q6hrs while NPO * Goal Range: Low 110 mg/dL - High 140 mg/dL * Correction Factor: 20 mg/dL/unit * Nutritional / Prandial insulin per carb ratio of 1 unit per 6 grams CHO consumed
--- NOTE | 2024-04-24 14:10 | Hospitalist Progress Note ---
Date of Service April 24, 2024 Assessment & Plan (1) COVID-19: (2) DM II (diabetes mellitus, type II), controlled: (3) COPD (chronic obstructive pulmonary disease): (4) Heart failure with preserved ejection fraction: Plan This patient is a 64-year-old female with chronic hypercapnic and hypoxic respiratory failure, complex lung disease including asthma and COPD with severe obstructive disease and steroid dependence, DM 2, admitted with acute exacerbation of COPD/asthma related to COVID-19 #Acute + chronic respiratory failure with hypoxia and hypercapnia/COVID-19/COPD exacerbation-COVID 19 diagnosed on admission, CXR negative, requiring 3 LNC when typically she is on room air at rest. With diffuse wheezing ongoing. She was outside the window for treatment with Remdesivir change dexamethasone to prednisone 30 mg every morning - she is on chronic steroids and will need to be weaned back to 15 mg daily of prednisone after discharge Continue bronchodilators, maintenance inhalers/nebulizers, continue nocturnal NIV Tylenol as needed Acute hypoxia resolved, now on room air at rest which is her baseline added Mucinex Supportive care #headache- related to COVID, rhinosinusitis Continue Tylenol, Toradol as needed and oxycodone sparingly as needed Flonase/ocean nasal # Chronic HFpEFno acute issues. Always has some lower extremity edema. Recent venous reflux studies were negative. recently torsemide decreased from 100 down to 50, continue spironolactone 50 mg. she is up at least 5 pounds since then with increased leg edema -torsemide 100 mg today, AM BMP continue potassium supplement #DMII- hemoglobin A1c 9.8% Continue basal and bolus insulin, pharmacist managing. currently with some steroid-induced hyperglycemia Holding home semaglutide - blood glucose reviewed and is at goal today AYAN-an ongoing issue that frequently contributes to somatic complaints. continue quetiapine, alprazolam, citalopram Opioid use disorder-continue Suboxone 8 Mg daily H/o MM w/ stem cell transplant remotely-has known lytic bone lesion on rib on chest imaging, adrenal mass,follows w/ oncology locally now, commonly has leukocytosis and abnormal SPEP. Was supposed to have a PET scan as an outpatient as well as bone marrow biopsy but has not yet been done asked nurse navigator to assist in making sure the PET scan, bone marrow biopsy will get scheduled Gout- No acute attacks, continue allopurinol, colchicine prn Esophagitis - February had thrush, treated with fluzonazole, nystatin. c/o painful and difficult swallowing. resumed nystatin and ordered fluconazole 100 mg daily x 14 days. QTc on admitting EKG few days ago was normal. Using lower dose of fluconazole because of multiple drug interactions Dispo: home soon VTE Prophylaxis: Does have a history of DVT and previously on therapeutic Lovenox which was discontinued for rectal bleeding a couple of months ago. Continue Lovenox 40 Mg SQ once daily Admission and Anticipated Discharge Date Admission Date: April 19, 2024 Subjective Janae continues to feel poorly, having a lot of pulmonary congestion at nighttime, coughing, pain with swallowing that is lower down in her chest as well as sore throat and daily morning headache she also feels more short of breath than baseline though no longer hypoxic Physical Exam Physical Exam: PHYSICAL EXAMINATION Last 24h vital signs reviewed, see documentation in flowsheet General: sitting up in chair, per her habit HEENT: Normocephalic, atraumatic, pupils round and equal, sclerae anicteric, no conjunctival injection, moist mucus membranes oral thrush visible posterior pharynx, some pharyngeal erythema Lungs: frequent cough, full sentences, expiratory wheezes in bases some scattered coarse sounds in upper lobes Heart: Regular rate and rhythm, no murmurs. No JVD Abdomen: Soft, nontender, nondistended. Bowel sounds present. Extremities: lower extremities are cool to touch. 2+ lower extremity edema - has not improved yet. Neuro: Alert and oriented x 4, face symmetric, moves 4 extremities well Psych: Normal affect and behavior Results & Data Results & Data Vital Signs (Past 12 Hours) Vital Signs Temp Pulse Pulse Resp BP Pulse Ox O2 Del Method 04/24/24 11:11 97 H 18 93 Room Air 04/24/24 07:52 97.7 F 85 16 137/94 93 Room Air 04/24/24 07:35 Room Air 04/24/24 07:25 88 18 93 Room Air 04/24/24 02:14 97 H 14 95 O2 Flow Rate 04/24/24 11:11 04/24/24 07:52 04/24/24 07:35 04/24/24 07:25 04/24/24 02:14 2 PG Care Time/CCT Total # of Minutes Spent Total Time Spent with Patient: Total time spent is greater than 50% in coordination of care (as documented) at patient's floor/unit and/or counseling patient: Coding Level of Care Code 57549 SUB INP/OBS CARE Diagnoses COVID-19 U07.1 DM II (diabetes mellitus, type II), controlled E11.9 COPD (chronic obstructive pulmonary disease) J44.9 COPD type: unspecified COPD Chronic heart failure with preserved ejection fraction I50.32 Heart failure chronicity: chronic (3) COPD (chronic obstructive pulmonary disease) COPD type: unspecified COPD Qualified Code(s): J44.9 - Chronic obstructive pulmonary disease, unspecified (4) Heart failure with preserved ejection fraction Heart failure chronicity: chronic Qualified Code(s): I50.32 - Chronic diastolic (congestive) heart failure
[2024-04-24] MEDS: guaiFENesin 600 MG TABCR PO SCH (14:12)
[2024-04-24] MEDS: FLUCONAZOLE 100 MG TAB PO SCH (14:12)
[2024-04-25 07:28] LABS: BUN Creatinine Ratio 45.2 (10-20); Creatinine Clr Calc Pharmacy 83.2 ml/min; Potassium 3.7 mmol/L (3.5-5.1)
[2024-04-25] MEDS: SODIUM CHLORIDE 0.65% NA SOLN 45 ML (OCEAN) PRN (08:18)
[2024-04-25] MEDS: predniSONE 10 MG TABLET PO SCH (08:18)
[2024-04-25] MEDS: NovoLIN-N (NPH) PER UNIT CHARGE SQ SCH (10:37)
--- NOTE | 2024-04-25 19:07 | Hospitalist Progress Note ---
Date of Service April 25, 2024 Assessment & Plan (1) COVID-19: (2) DM II (diabetes mellitus, type II), controlled: (3) COPD (chronic obstructive pulmonary disease): (4) Heart failure with preserved ejection fraction: Plan This patient is a 64-year-old female with chronic hypercapnic and hypoxic respiratory failure, complex lung disease including asthma and COPD with severe obstructive disease and steroid dependence, DM 2, admitted with acute exacerbation of COPD/asthma related to COVID-19 #Acute + chronic respiratory failure with hypoxia and hypercapnia/COVID-19/COPD exacerbation-COVID 19 diagnosed on admission, CXR negative, requiring 3 LNC when typically she is on room air at rest. With diffuse wheezing ongoing. She was outside the window for treatment with Remdesivir change dexamethasone to prednisone 30 mg every morning - she is on chronic steroids and will need to be weaned back to 15 mg daily of prednisone after discharge Continue bronchodilators, maintenance inhalers/nebulizers, continue nocturnal NIV Tylenol as needed Acute hypoxia resolved, now on room air at rest which is her baseline added Mucinex Supportive care #headache- related to COVID, rhinosinusitis Continue Tylenol, Toradol as needed and oxycodone sparingly as needed Flonase/ocean nasal # Chronic HFpEFno acute issues. Always has some lower extremity edema. Recent venous reflux studies were negative. recently torsemide decreased from 100 down to 50, continue spironolactone 50 mg. she is up at least 5 pounds since then with increased leg edema -torsemide 100 mg today, AM BMP continue potassium supplement #DMII- hemoglobin A1c 9.8% Continue basal and bolus insulin, pharmacist managing. currently with some steroid-induced hyperglycemia Holding home semaglutide - blood glucose reviewed and is at goal today AYAN-an ongoing issue that frequently contributes to somatic complaints. continue quetiapine, alprazolam, citalopram Opioid use disorder-continue Suboxone 8 Mg daily H/o MM w/ stem cell transplant remotely-has known lytic bone lesion on rib on chest imaging, adrenal mass,follows w/ oncology locally now, commonly has leukocytosis and abnormal SPEP. Was supposed to have a PET scan as an outpatient as well as bone marrow biopsy but has not yet been done asked nurse navigator to assist in making sure the PET scan, bone marrow biopsy will get scheduled Gout- No acute attacks, continue allopurinol, colchicine prn Esophagitis - February had thrush, treated with fluzonazole, nystatin. c/o painful and difficult swallowing. resumed nystatin and ordered fluconazole 100 mg daily x 14 days. QTc on admitting EKG few days ago was normal. Using lower dose of fluconazole because of multiple drug interactions Dispo: home soon VTE Prophylaxis: Does have a history of DVT and previously on therapeutic Lovenox which was discontinued for rectal bleeding a couple of months ago. Continue Lovenox 40 Mg SQ once daily Admission and Anticipated Discharge Date Admission Date: April 19, 2024 Subjective notes improvement in shortness of breath, sore throat but thrush cleared Physical Exam Physical Exam: PHYSICAL EXAMINATION Last 24h vital signs reviewed, see documentation in flowsheet General: sitting up in chair, per her habit HEENT: Normocephalic, atraumatic, pupils round and equal, sclerae anicteric, no conjunctival injection, moist mucus membranes oral thrush visible posterior pharynx - resolved today, some pharyngeal erythema Lungs:full sentences, expiratory wheezes in bases some scattered coarse sounds in upper lobes Heart: Regular rate and rhythm, no murmurs. No JVD Abdomen: Soft, nontender, nondistended. Bowel sounds present. Extremities: lower extremities are cool to touch. 2+ lower extremity edema - has not improved yet. Neuro: Alert and oriented x 4, face symmetric, moves 4 extremities well Psych: Normal affect and behavior Constitutional: WD/WN, vitals as above Respiratory: normal respiratory effort; no cough Auscultation: + wheezes (Diffusely); no crackles and no rhonchi Cardiovascular: Rate/Rhythm: regular rate and regular rhythm Heart Sounds: no murmur Extremities: + edema (2+ pitting edema legs to the knees bilaterally) Psychiatric: A+Ox3, euthymic affect Results & Data Results & Data Vital Signs (Past 12 Hours) Vital Signs Temp Pulse Resp BP BP Pulse Ox O2 Del Method 04/25/24 15:41 Room Air 04/25/24 15:30 36.5 C 106 H 18 143/94 H 96 Room Air 04/25/24 15:06 108 H 16 93 Room Air 04/25/24 11:15 104 H 20 91 Room Air 04/25/24 08:53 Room Air 04/25/24 08:14 36.8 C 91 H 20 143/87 H 92 Room Air 04/25/24 07:46 81 16 96 Room Air Laboratory Results reviewed Diagnostic Findings reviewed PG Care Time/CCT Total # of Minutes Spent Total Time Spent with Patient: Total time spent is greater than 50% in coordination of care (as documented) at patient's floor/unit and/or counseling patient: Coding Level of Care Code 79466 SUB INP/OBS CARE 2/35MIN Diagnoses COVID-19 U07.1 DM II (diabetes mellitus, type II), controlled E11.9 COPD (chronic obstructive pulmonary disease) J44.9 COPD type: unspecified COPD Chronic heart failure with preserved ejection fraction I50.32 Heart failure chronicity: chronic (3) COPD (chronic obstructive pulmonary disease) COPD type: unspecified COPD Qualified Code(s): J44.9 - Chronic obstructive pulmonary disease, unspecified (4) Heart failure with preserved ejection fraction Heart failure chronicity: chronic Qualified Code(s): I50.32 - Chronic diastolic (congestive) heart failure
[2024-04-26] MEDS ORDERED: NovoLIN-N (NPH) PER UNIT CHARGE SQ SCH (09:00)
[2024-04-26] MEDS: LANTUS PER UNIT CHARGE SQ SCH (09:13)
[2024-04-26] MEDS: LANTUS PER UNIT CHARGE SQ ONE (09:52)
[2024-04-26] MEDS: INSULIN HUMAN NPH SC SCH (09:53)
--- NOTE | 2024-04-26 09:56 | Pharmacy Report ---
Pharmacy Glycemic Short Note 2 - Date of Service April 26, 2024 - Glycemic Short BSG Results (Last 24 hours): 04/25/24 04/25/24 04/25/24 12:10 16:33 20:55 Glucose POC Glucose 227 H 187 H 391 H* 04/25/24 04/25/24 04/25/24 20:58 21:01 21:21 Glucose 209 H POC Glucose 322 H* 258 H 04/26/24 07:36 Glucose POC Glucose 289 H OUTPATIENT ANTIDIABETIC REGIMEN: * Lantus 50 units SQ QAM * NovoLog 10 units SQ TIDM * HbA1c 8.3% (01/19/24) ASSESSMENT: 04/26 * Patient received total of 114 units of insulin yesterday, of which 45 units were Lantus and 15 units NPH * Fasting BSG >250 - discussed with RN, there is potential for snacking overnight. Fasting BSG has been elevated last 3 days, will titrate up slightly this AM. Reasonable to also tighten novolog as BSGs yesterday in 200-300s. 04/24 * Patient received total of 83 units of insulin yesterday, of which 45 units were basal with Lantus * NPH not given d/t steroids changed from IV to PO yesterday * Will add NPH back daily with dexamethasone today as BG maria to 229, 321mg/dl throughout the day yesterday without it. 04/21 * Patient received total of 87 units of insulin yesterday, of which 45 units were basal * Fasting BSG 124 mg/dl - will continue with same basal. BSGs however trending up yesterday evening, RN reporting patient snacking but could also be due to IV dexamethasone as well. Will give small supplemental NPH dose this AM for IV dexamethasone * Steroids changing to PO tomorrow, anticipate needs to be less, will reevaluate tomorrw 04/20 * Patient received total of 94 units of insulin yesterday, of which 68 units were basal insulin * Fasting BSG 89 mg/dL - scaled back basal to 45 units once daily as fasting BSG trending down * Loosened novolog parameters since blood sugars trending down last evening likely due to steroids wearing off * Provider now reordering DXM 6 mg iv daily later this AM - may potentially add small dose of NPH at lunch time to help cover steroid effects 04/19 * Janae is a 64 YOF admitted with shortness of breath and a history of type 2 diabetes mellitus. Pharmacy has been consulted for glycemic management while inpatient. Janae is familiar to the glycemic service. * Upon admission, respiratory biofire positive for COVID-19. She was started on nasal canula and IV dexamethasone 6mg was added per COVID protocol. She has been managed on steroids previously on past admissions, will use this data to guide dosing this admission. Basal insulin and NovoLog started at previously used dosing. Will continue to monitor and titrate. PLAN FOR INPATIENT GLYCEMIC CONTROL: * Basal insulin * Lantus 55 units once daily * NPH 15 units SQ daily with PO dexamethasone * Bolus insulin * NovoLog per scale ACHS or Q6hrs while NPO * Goal Range: Low 110 mg/dL - High 140 mg/dL * Correction Factor: 15 mg/dL/unit * Nutritional / Prandial insulin per carb ratio of 1 unit per 4 grams CHO consumed
[2024-04-26] MEDS: METOPROLOL SUCC 25MG EXT REL TAB PO SCH (11:12)
--- NOTE | 2024-04-26 18:15 | Hospitalist Progress Note ---
Date of Service April 26, 2024 Assessment & Plan (1) COVID-19: (2) DM II (diabetes mellitus, type II), controlled: (3) COPD (chronic obstructive pulmonary disease): (4) Heart failure with preserved ejection fraction: Plan This patient is a 64-year-old female with chronic hypercapnic and hypoxic respiratory failure, complex lung disease including asthma and COPD with severe obstructive disease and steroid dependence, DM 2, admitted with acute exacerbation of COPD/asthma related to COVID-19 #Acute + chronic respiratory failure with hypoxia and hypercapnia/COVID-19/COPD exacerbation-COVID 19 diagnosed on admission, CXR negative, requiring 3 LNC when typically she is on room air at rest. With diffuse wheezing ongoing. She was outside the window for treatment with Remdesivir change dexamethasone to prednisone 30 mg every morning - she is on chronic steroids and will need to be weaned back to 15 mg daily of prednisone after discharge Continue bronchodilators, maintenance inhalers/nebulizers, continue nocturnal NIV Tylenol as needed Acute hypoxia resolved, now on room air at rest which is her baseline added Mucinex Supportive care #headache- related to COVID, rhinosinusitis Continue Tylenol, Toradol as needed and oxycodone sparingly as needed Flonase/ocean nasal # Chronic HFpEFno acute issues. Always has some lower extremity edema. Recent venous reflux studies were negative. recently torsemide decreased from 100 down to 50, continue spironolactone 50 mg. she is up at least 5 pounds since then with increased leg edema -torsemide 100 mg today, AM BMP continue potassium supplement #DMII- hemoglobin A1c 9.8% Continue basal and bolus insulin, pharmacist managing. currently with some steroid-induced hyperglycemia Holding home semaglutide - blood glucose reviewed and is at goal today AYAN-an ongoing issue that frequently contributes to somatic complaints. continue quetiapine, alprazolam, citalopram Opioid use disorder-continue Suboxone 8 Mg daily H/o MM w/ stem cell transplant remotely-has known lytic bone lesion on rib on chest imaging, adrenal mass,follows w/ oncology locally now, commonly has leukocytosis and abnormal SPEP. Was supposed to have a PET scan as an outpatient as well as bone marrow biopsy but has not yet been done asked nurse navigator to assist in making sure the PET scan, bone marrow biopsy will get scheduled Gout- No acute attacks, continue allopurinol, colchicine prn Esophagitis - February had thrush, treated with fluzonazole, nystatin. c/o painful and difficult swallowing. resumed nystatin and ordered fluconazole 100 mg daily x 14 days. QTc on admitting EKG few days ago was normal. Using lower dose of fluconazole because of multiple drug interactions Dispo: home soon VTE Prophylaxis: Does have a history of DVT and previously on therapeutic Lovenox which was discontinued for rectal bleeding a couple of months ago. Continue Lovenox 40 Mg SQ once daily Admission and Anticipated Discharge Date Admission Date: April 19, 2024 Subjective notes improvement in shortness of breath, sore throat but thrush cleared - says hurts to cough / ? odynophagia Physical Exam Physical Exam: PHYSICAL EXAMINATION Last 24h vital signs reviewed, see documentation in flowsheet General: sitting up in chair, per her habit HEENT: Normocephalic, atraumatic, pupils round and equal, sclerae anicteric, no conjunctival injection, moist mucus membranes oral thrush visible posterior pharynx - resolved today, some pharyngeal erythema Lungs:full sentences, expiratory wheezes in bases some scattered coarse sounds in upper lobes Heart: Regular rate and rhythm, no murmurs. No JVD Abdomen: Soft, nontender, nondistended. Bowel sounds present. Extremities: lower extremities are cool to touch. 2+ lower extremity edema - has not improved yet. Neuro: Alert and oriented x 4, face symmetric, moves 4 extremities well Psych: Normal affect and behavior Constitutional: WD/WN, vitals as above Respiratory: normal respiratory effort; no cough Auscultation: + wheezes; no crackles and no rhonchi Cardiovascular: Rate/Rhythm: regular rate and regular rhythm Heart Sounds: no murmur Extremities: + edema (2+ pitting edema legs to the knees bilaterally) Psychiatric: A+Ox3, euthymic affect Results & Data Results & Data Vital Signs (Past 12 Hours) Vital Signs Temp Pulse Resp BP BP Pulse Ox O2 Del Method 04/26/24 15:30 36.8 C 100 H 19 152/99 H 92 Room Air 04/26/24 11:14 109 H 17 92 Room Air 04/26/24 07:41 36.6 C 101 H 18 142/90 H 93 Room Air 04/26/24 07:37 Room Air 04/26/24 07:13 102 H 12 92 Room Air PG Care Time/CCT Total # of Minutes Spent Total Time Spent with Patient: Total time spent is greater than 50% in coordination of care (as documented) at patient's floor/unit and/or counseling patient: Coding Level of Care Code 17977 SUB INP/OBS CARE 2/35MIN Diagnoses COVID-19 U07.1 DM II (diabetes mellitus, type II), controlled E11.9 COPD (chronic obstructive pulmonary disease) J44.9 COPD type: unspecified COPD Chronic heart failure with preserved ejection fraction I50.32 Heart failure chronicity: chronic (3) COPD (chronic obstructive pulmonary disease) COPD type: unspecified COPD Qualified Code(s): J44.9 - Chronic obstructive pulmonary disease, unspecified (4) Heart failure with preserved ejection fraction Heart failure chronicity: chronic Qualified Code(s): I50.32 - Chronic diastolic (congestive) heart failure
[2024-04-27] MEDS: LANTUS PER UNIT CHARGE SQ SCH (08:32)
[2024-04-27] MEDS: INSULIN HUMAN NPH SC SCH (08:33)
--- NOTE | 2024-04-27 19:50 | Hospitalist Progress Note ---
Date of Service April 27, 2024 Assessment & Plan (1) COVID-19: (2) DM II (diabetes mellitus, type II), controlled: (3) COPD (chronic obstructive pulmonary disease): (4) Heart failure with preserved ejection fraction: Plan This patient is a 64-year-old female with chronic hypercapnic and hypoxic respiratory failure, complex lung disease including asthma and COPD with severe obstructive disease and steroid dependence, DM 2, admitted with acute exacerbation of COPD/asthma related to COVID-19 #Acute + chronic respiratory failure with hypoxia and hypercapnia/COVID-19/COPD exacerbation-COVID 19 diagnosed on admission, CXR negative, requiring 3 LNC when typically she is on room air at rest. With diffuse wheezing ongoing. She was outside the window for treatment with Remdesivir change dexamethasone to prednisone 30 mg every morning - she is on chronic steroids and will need to be weaned back to 15 mg daily of prednisone after discharge Continue bronchodilators, maintenance inhalers/nebulizers, continue nocturnal NIV Tylenol as needed Acute hypoxia resolved, now on room air at rest which is her baseline added Mucinex Supportive care #headache- related to COVID, rhinosinusitis Continue Tylenol, Toradol as needed and oxycodone sparingly as needed Flonase/ocean nasal # Chronic HFpEFno acute issues. Always has some lower extremity edema. Recent venous reflux studies were negative. recently torsemide decreased from 100 down to 50, continue spironolactone 50 mg. she is up at least 5 pounds since then with increased leg edema -torsemide 100 mg today, AM BMP continue potassium supplement #DMII- hemoglobin A1c 9.8% Continue basal and bolus insulin, pharmacist managing. currently with some steroid-induced hyperglycemia Holding home semaglutide - blood glucose reviewed and is at goal today AYAN-an ongoing issue that frequently contributes to somatic complaints. continue quetiapine, alprazolam, citalopram Opioid use disorder-continue Suboxone 8 Mg daily H/o MM w/ stem cell transplant remotely-has known lytic bone lesion on rib on chest imaging, adrenal mass,follows w/ oncology locally now, commonly has leukocytosis and abnormal SPEP. Was supposed to have a PET scan as an outpatient as well as bone marrow biopsy but has not yet been done asked nurse navigator to assist in making sure the PET scan, bone marrow biopsy will get scheduled Gout- No acute attacks, continue allopurinol, colchicine prn Esophagitis - February had thrush, treated with fluzonazole, nystatin. c/o painful and difficult swallowing. resumed nystatin and ordered fluconazole 100 mg daily x 14 days. QTc on admitting EKG few days ago was normal. Using lower dose of fluconazole because of multiple drug interactions Dispo: home soon VTE Prophylaxis: Does have a history of DVT and previously on therapeutic Lovenox which was discontinued for rectal bleeding a couple of months ago. Continue Lovenox 40 Mg SQ once daily Admission and Anticipated Discharge Date Admission Date: April 19, 2024 Subjective shortness of breath at baseline, willing to be discharged today but will stay overnight for BM biopsy in AM as she has not been able to do this outpatient / h/o multiple myeloma Physical Exam Physical Exam: PHYSICAL EXAMINATION Last 24h vital signs reviewed, see documentation in flowsheet General: sitting up in chair, per her habit HEENT: Normocephalic, atraumatic, pupils round and equal, sclerae anicteric, no conjunctival injection, moist mucus membranes oral thrush visible posterior pharynx - resolved today, some pharyngeal erythema Lungs:full sentences, expiratory wheezes in bases some scattered coarse sounds in upper lobes Heart: Regular rate and rhythm, no murmurs. No JVD Abdomen: Soft, nontender, nondistended. Bowel sounds present. Extremities: lower extremities are cool to touch. 2+ lower extremity edema - has not improved yet. Neuro: Alert and oriented x 4, face symmetric, moves 4 extremities well Psych: Normal affect and behavior Constitutional: WD/WN, vitals as above Respiratory: normal respiratory effort; no cough Auscultation: + wheezes; no crackles and no rhonchi Cardiovascular: Rate/Rhythm: regular rate and regular rhythm Heart Sounds: no murmur Extremities: + edema (2+ pitting edema legs to the knees bilaterally) Psychiatric: A+Ox3, euthymic affect Results & Data Results & Data Vital Signs (Past 12 Hours) Vital Signs Temp Pulse Resp BP BP Pulse Ox O2 Del Method 04/27/24 19:41 36.3 C L 101 H 22 146/85 H 94 Room Air 04/27/24 15:55 104 H 18 91 Room Air 04/27/24 14:03 36.7 C 109 H 16 151/89 H 94 Room Air 04/27/24 11:18 111 H 16 93 Room Air PG Care Time/CCT Total # of Minutes Spent Total Time Spent with Patient: Total time spent is greater than 50% in coordination of care (as documented) at patient's floor/unit and/or counseling patient: Coding Level of Care Code 65005 SUB INP/OBS CARE 2/35MIN Diagnoses COVID-19 U07.1 DM II (diabetes mellitus, type II), controlled E11.9 COPD (chronic obstructive pulmonary disease) J44.9 COPD type: unspecified COPD Chronic heart failure with preserved ejection fraction I50.32 Heart failure chronicity: chronic (3) COPD (chronic obstructive pulmonary disease) COPD type: unspecified COPD Qualified Code(s): J44.9 - Chronic obstructive pulmonary disease, unspecified (4) Heart failure with preserved ejection fraction Heart failure chronicity: chronic Qualified Code(s): I50.32 - Chronic diastolic (congestive) heart failure
[2024-04-28 00:17] VITALS: RESP 18
[2024-04-28 09:48] LABS: BUN Creatinine Ratio 56.1 (10-20); Calcium 9.2 mg/dl (8.6-10.3); Creatinine Clr Calc Pharmacy 72.2 ml/min; Potassium 3.9 mmol/L (3.5-5.1)
--- NOTE | 2024-04-28 10:03 | Pharmacy Report ---
Pharmacy Glycemic Short Note 2 - Date of Service April 28, 2024 - Glycemic Short BSG Results (Last 24 hours): 04/27/24 04/27/24 04/27/24 11:44 12:11 16:43 Glucose POC Glucose 270 H 110 H 193 H 04/27/24 04/28/24 04/28/24 20:26 00:14 03:48 Glucose POC Glucose 229 H 128 H 152 H 04/28/24 04/28/24 07:46 09:06 Glucose 177 H POC Glucose 175 H OUTPATIENT ANTIDIABETIC REGIMEN: * Lantus 50 units SQ QAM * NovoLog 10 units SQ TIDM * HbA1c 8.3% (01/19/24) ASSESSMENT: 04/28/24 * Patient NPO for BM Biopsy today, pt refusing all insulin orders and PO prednisone d/t NPO status - will re-order and have them given when diet resumes this afternoon. * Patient very nervous about low BG - will change goal range to reduce chance of hypoglycemia. 04/26 * Patient received total of 114 units of insulin yesterday, of which 45 units were Lantus and 15 units NPH * Fasting BSG >250 - discussed with RN, there is potential for snacking overnight. Fasting BSG has been elevated last 3 days, will titrate up slightly this AM. Reasonable to also tighten novolog as BSGs yesterday in 200-300s. 04/24 * Patient received total of 83 units of insulin yesterday, of which 45 units were basal with Lantus * NPH not given d/t steroids changed from IV to PO yesterday * Will add NPH back daily with dexamethasone today as BG maria to 229, 321mg/dl throughout the day yesterday without it. 04/21 * Patient received total of 87 units of insulin yesterday, of which 45 units were basal * Fasting BSG 124 mg/dl - will continue with same basal. BSGs however trending up yesterday evening, RN reporting patient snacking but could also be due to IV dexamethasone as well. Will give small supplemental NPH dose this AM for IV dexamethasone * Steroids changing to PO tomorrow, anticipate needs to be less, will reevaluate tomorrw 04/20 * Patient received total of 94 units of insulin yesterday, of which 68 units w ere basal insulin * Fasting BSG 89 mg/dL - scaled back basal to 45 units once daily as fasting BSG trending down * Loosened novolog parameters since blood sugars trending down last evening likely due to steroids wearing off * Provider now reordering DXM 6 mg iv daily later this AM - may potentially add small dose of NPH at lunch time to help cover steroid effects 04/19 * Janae is a 64 YOF admitted with shortness of breath and a history of type 2 diabetes mellitus. Pharmacy has been consulted for glycemic management while inpatient. Janae is familiar to the glycemic service. * Upon admission, respiratory biofire positive for COVID-19. She was started on nasal canula and IV dexamethasone 6mg was added per COVID protocol. She has been managed on steroids previously on past admissions, will use this data to guide dosing this admission. Basal insulin and NovoLog started at previously used dosing. Will continue to monitor and titrate. PLAN FOR INPATIENT GLYCEMIC CONTROL: * Basal insulin * Lantus 55 units once daily * NPH 20 units SQ daily with PO dexamethasone * Bolus insulin * NovoLog per scale ACHS or Q6hrs while NPO * Goal Range: Low 120 mg/dL - High 150 mg/dL * Correction Factor: 15 mg/dL/unit * Nutritional / Prandial insulin per carb ratio of 1 unit per 5 grams CHO consumed
[2024-04-28 11:18] LABS: Basophils # (auto) 0.06 K/uL (0.00-0.20); Basophils % (auto) 0.3 %; Eosinophils # (auto) 0.06 K/uL (0.00-0.50); Eosinophils % (auto) 0.3 %; Hematocrit (blood only) 43.5 % (37.0-47.0); Hemoglobin 13.3 g/dl (12.0-16.0); Immature Granulocytes # (auto) 0.59 K/uL (0.01-0.20); Immature Granulocytes % (auto) 2.9 %; Lymphocytes # (auto) 3.02 K/uL (1.20-3.40); Lymphocytes % (auto) 14.8 %; Mean Corpuscular Hemoglobin 24.1 pg (25.0-34.0); Mean Corpuscular Hgb Conc 30.6 g/dL (32.0-36.0); Mean Corpuscular Volume 78.8 fL (80.0-100.0); Mean Platelet Volume 9.5 fL (9.4-12.4); Monocytes # (auto) 0.95 K/uL (0.11-0.59); Monocytes % (auto) 4.7 %; Neutrophils # (auto) 15.73 K/uL (1.40-6.50); Nucleated RBC # (auto) 0.02 K/uL (0.00-0.12); Nucleated RBC % (auto) 0.1 %; Platelet Count 415 K/uL (130-400); RDW Coefficient of Variation 21.2 % (11.5-14.5); RDW Standard Deviation 57.8 fL (36.4-46.3); Red Blood Count 5.52 M/uL (4.20-5.40); White Blood Count 20.41 K/ul (4.8-10.8)
[2024-04-28 11:56] LABS: Anisocytosis Present; Bone Marrow Smear SLHOLD; Hypochromasia Present; Ovalocytes 1+
--- NOTE | 2024-04-28 12:47 | Discharge Summary ---
Discharge Summary Date of Service April 28, 2024 Principal Dx & Hospital Course #1 = Principal Diagnosis (1) COVID-19: (2) DM II (diabetes mellitus, type II), controlled: (3) COPD (chronic obstructive pulmonary disease): (4) Heart failure with preserved ejection fraction: Makenzie Cardoso is a 64-year-old female the past medical history of chronic hypoxic/hypercapnic respiratory failure from asthma/COPD, DM 2 who presented with acute hypoxic hypercapnic respiratory failure due to acute COVID and COPD exacerbation. Additionally had been about 5 pounds up with some HFpEF contribution. To do as outpatient: 1: Wean prednisone 30 mg down by 5 mg every 4 days until back at 15 mg home requirement. 2: Follow-up on bone marrow biopsy results 3: Routine follow-up with PCP and oncologist During admission she was treated with dexamethasone which was transitioned to prednisone 30 mg daily. Will need a slow wean back to 15 mg home requirement as outpatient. She progressed well and returned to room air 04/28/2024. Mild HFpEF exacerbation during admission, she was 5 pounds up with some leg edema but responded well to diuresis and was continued on her home torsemide/Aldactone doses on discharge. She does have a history of multiple myeloma with stem cell transplant remotely with known lytic bone lesions following weekly with oncology but has had an abnormal SPEP in the past. She has not yet been able to follow-up for PET scan and bone marrow biopsy although these had been recommended. This was ordered as inpatient to help facilitate care as patient has had multiple rehospitalization's limited her outpatient scheduling and missed appointments. This was performed by IR 04/28/2024. Pathology was pending and patient was instructed to follow-up with her oncologist and PCP for results of this. At time of discharge she had clinically progressed to room air and was recovering well from her viral respiratory failure, COPD exacerbation, and was near euvolemic At time of discharge she was intermittently tachycardic, generally in the 90s but with significant anxiety component and occasionally increased to the 100s. Did discuss further care and monitoring until her heart rate is in the 80s90s, patient reports she felt much improved closer to her baseline now with no respiratory symptoms and preferred discharge home following her biopsy. Return precautions were given Admission HPI Per Admitting Provider 64-year-old female presenting to ED for increased work of breathing relates to asthma, was encouraged by PCP to be evaluated in ED. ED course: CBC H&H 10.8/36.2, MCH 24.2, MCHC 29.8, RDW 60.1, neutrophils 8.32 without leukocytosis, lymphocytes 0.89; PT/INR 10.3/0.9; VBG's pH 7.40, pCO2 60, HCO3 37; CMP CO2 34, BUN/creatinine ratio 21.7, alkaline phosphatase 109; troponin 22.8, pending repeat; BNP 110; BioFire positive for COVID; CXR without acute abnormalities and no radiographic evidence of pneumonia; EKG sinus tachycardia rate around 102, nonspecific T wave abnormalities in lateral leads.; Provided with famotidine, dexamethasone and albuterol in ED. Patient 64-year-old female PMHx chronic hypercapnic respiratory failure, history of asthma, COPD, HFpEF, DMT2, and AYAN with most recent hospital course 03/20 to 03/27 who is presenting today with difficulties breathing x around 1 week. Patient states that approximate 1 week ago she started to feel not herself, feeling more fatigue and noticed that she was having increased wheezing. 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 States that she thinks she had sick contact exposure from a family member. States that she has been utilizing nebulizer treatments at home and inhalers at home as but is still having a productive cough. Did have 1 episode of chest pressure approximately 3 days prior to arrival which is since resolved. Denying fever/chills, chest pain, palpitations, abdominal pain, N/V/D/C, numbness/tingling, LUTS, lightheadedness, or LOC. Took a.m. medications. Please see Dr. Ellsworth's attestation for adjustments/additions to treatment plan. Discharge Exam General: A&Ox3. NAD. Cooperative. HEENT: Atraumatic, normocephalic. Pulm: Diminished but without overt wheezes/rales at time bedside assessment symmetrical chest rise. No increased work of breathing. No respiratory distress. Cardiac: RRR, -mrg. Radial pulses intact and symmetrical. Abdominal: Nontender, nondistended, soft. BS present. Discharge Plan Discharge Items Patient Disposition: Home - Self-Care Reason For Visit: COVID, ACUTE ON CHRONIC RESP FAILURE, ELEVATED TRO Discharge Diagnosis: COPD EXACERBATION SEC TO COVID 19 INFECTION Condition on Discharge: Fair Health Concerns: SMOKING Goals: SMOKING CESSATION Activity: Resume your previous activity Non-emergency contact: Primary Care Provider and Manager Outreach Call non-emergency contact if: you have any medication questions and your symptoms worsen Follow-up/Referrals: Jonnie Dan MD [Physician] - 05/06/24 1:00 pm Radha Barboza PA-C [Primary Care Provider] - 05/02/24 3:25 pm Diet: Carb Consistent or DM2 Addtl Attending Provider Instructions: FOLLOW UP WITH PRIMARY CARE IN 5-7 DAYS FOLLOW UP WITH PULMONARY IN 1-2 WEEKS You are seen in the hospital for acute respiratory failure with a viral COPD exacerbation. He recovered well and your oxygen levels returned to baseline. You have been prescribed a steroid taper. Please take prednisone 30 mg daily. Decrease this by 5 mg every 3 days until you are back at your home dose of 15 mg/day, and then continue taking that 15 mg daily dose thereafter. You had a bone marrow biopsy performed while in the hospital. Please follow-up on the results of this with your primary care provider and your oncologist. You have been prescribed a course of fluconazole for esophagitis. Please complete this as directed below and follow-up with your PCP if you have any further symptoms or concerns. . Your torsemide dose had previously been decreased to 50 mg however this appeared to be insufficient as you had had fluid retention at this dose. It has been increased to 100 mg daily. Please continue taking torsemide 100 mg daily and follow-up with your PCP for reevaluation Follow-up appointments are being scheduled for you for your PCP for within 1 week, and pulmonology within 1 to 2 weeks. If you develop any new or worsening symptoms including fever, chills, sweats, chest pain, chest pressure, difficulty breathing, uncontrolled nausea/vomiting, rash, wheezing, passing out or nearly passing out, bleeding, black/bloody bowel movements, or other new or concerning symptoms please call your primary care physician, or call 911 for re-evaluation in the emergency department if you are very concerned. Pending Studies at Discharge: No Stand-Alone Forms: My [employer], Smoking Cessation Medications and DC Order Prescriptions: New torsemide 100 mg Tablet 100 mg PO QAM Qty: 30 0RF guaifenesin [Mucinex] 600 mg Tablet Extended Release 12hr 600 mg PO Q12 Qty: 14 0RF polyethylene glycol 3350 [Miralax] 17 gram Powder In Packet 17 g PO DAILY PRN (Reason: constipation) 14 Days Qty: 14 0RF guaifenesin 100 mg/5 mL Liquid 100 mg PO Q6H Qty: 200 0RF fluconazole [Diflucan] 100 mg Tablet 100 mg PO QAM Qty: 7 0RF prednisone 10 mg tablet 10 mg PO DIRECTED Qty: 23 0RF Rx Instructions: Take 30mg daily. Decrease by 5mg every 3 days until at 15mg/day then continue prior home dose of 15mg/day. Continued potassium chloride [Klor-Con M20] 20 mEq tablet,ER particles/crystals 40 meq PO DAILY Qty: 0 0RF levalbuterol HCl 1.25 mg/3 mL solution for nebulization 1.25 mg INHALATION Q8H PRN (Reason: Shortness Of Breath Or Wheezing) albuterol sulfate 90 mcg/actuation HFA aerosol inhaler 2 puff INHALATION Q4H PRN (Reason: Shortness Of Breath Or Wheezing) ipratropium bromide 0.02 % solution 3 ml continuous nebulization QID PRN (Reason: shortness of breath) Qty: 75 0RF calcium polycarbophil [Fiber (calcium polycarbophil)] 625 mg Tablet 625 mg PO QAM Qty: 30 0RF silver sulfadiazine 1 % cream 1 applic topical BID quetiapine 100 mg tablet 100 mg PO HS budesonide 0.25 mg/2 mL suspension for nebulization 0.25 mg inhalation BID allopurinol 300 mg tablet 300 mg PO DAILY levalbuterol tartrate 45 mcg/actuation HFA aerosol inhaler 2 puff INHALATION Q6H PRN (Reason: WHEEZE) buprenorphine-naloxone [Suboxone] 8-2 mg film 1 film sublingual DAILY 30 Days Qty: 30 0RF citalopram 20 mg tablet 20 mg PO HS spironolactone 50 mg tablet 50 mg PO QAM fluticasone propionate [Flonase Allergy Relief] 50 mcg/actuation spray,suspension 1 spray intranasal BID Qty: 0 0RF insulin aspart U-100 [Novolog FlexPen U-100 Insulin] 100 unit/mL (3 mL) insulin pen 10 unit subcut TIDM ascorbic acid (vitamin C) [Vitamin C] 500 mg Tablet 1,000 mg PO DAILY Qty: 60 0RF alprazolam 0.5 mg tablet 0.5 mg PO BID PRN (Reason: ANXIETY ) Hold Instructions: Resume on 04/06/24. Hold while you finish the course of fluconazole for the oral and esophageal thrush Rx Instructions: PT MAY TAKE AN EXTRA TAB FOR ACUTE PANIC ATTACKS- MAX 3 TABS DAILY ondansetron 4 mg tablet,disintegrating 4 mg PO Q8 PRN (Reason: NAUSEA/VOMITING) insulin glargine [Lantus Solostar U-100 Insulin] 100 unit/mL (3 mL) insulin pen 50 unit SUBCUT QAM colchicine 0.6 mg capsule 0.6 mg PO DAILY PRN (Reason: joint pain) Qty: 30 0RF Trelegy Ellipta 200-62.5-25 mcg blister with device 1 ea INHALATION QAM Held prednisone 5 mg tablet 15 mg PO DAILY Hold Instructions: Resume on 05/07/24. After hospital steroid taper complete Discontinued torsemide 100 mg tablet 50 mg PO QAM Qty: 30 5RF Trelegy Ellipta 200-62.5-25 mcg blister with device INHALATION Discharge Orders: Discharge Order (Routine); Ordered 04/28/24 Ordered By: Jaziel Barbour/Other Patient Handouts: Managing Type 2 Diabetes, Healthy Meals for Diabetes Admission Data Admit Date/Time: 04/19/24 11:47 Attending Provider: Jaziel Ellsworth Admit Provider: Jaziel Ellsworth Primary Care Provider: Radha Barboza Other Providers: Jaziel Ellsworth Other Interventions: Discharge Summary Assessment (RN) Last Done: 04/28/24 15:42 Hospital Stay Data Consultations 04/19/24 10:45 ED Decision to Admit Stat Diagnostic Imagining Performed 04/27/24 19:50 IR bone marrow bx & asp Routine Pending Results Patient Have Any Pending Studies at Discharge: No Discharge Instructions Given to Patient (Per Discharging Provider) FOLLOW UP WITH PRIMARY CARE IN 5-7 DAYS FOLLOW UP WITH PULMONARY IN 1-2 WEEKS You are seen in the hospital for acute respiratory failure with a viral COPD exacerbation. He recovered well and your oxygen levels returned to baseline. You have been prescribed a steroid taper. Please take prednisone 30 mg daily. Decrease this by 5 mg every 3 days until you are back at your home dose of 15 mg/day, and then continue taking that 15 mg daily dose thereafter. You had a bone marrow biopsy performed while in the hospital. Please follow-up on the results of this with your primary care provider and your oncologist. You have been prescribed a course of fluconazole for esophagitis. Please complete this as directed below and follow-up with your PCP if you have any further symptoms or concerns. . Your torsemide dose had previously been decreased to 50 mg however this appeared to be insufficient as you had had fluid retention at this dose. It has been increased to 100 mg daily. Please continue taking torsemide 100 mg daily and follow-up with your PCP for reevaluation Follow-up appointments are being scheduled for you for your PCP for within 1 week, and pulmonology within 1 to 2 weeks. If you develop any new or worsening symptoms including fever, chills, sweats, chest pain, chest pressure, difficulty breathing, uncontrolled nausea/vomiting, rash, wheezing, passing out or nearly passing out, bleeding, black/bloody bowel movements, or other new or concerning symptoms please call your primary care physician, or call 911 for re-evaluation in the emergency department if you are very concerned. Total Time Total Time Spent Total Time Spent (In Minutes): Time spend day of discharge 40 minutes including direct patient care, documentation, review of labs and images, and coordination of care. Coding Level of Care Code 84014 INP/OBS DISCH >30 MIN Diagnoses COVID-19 U07.1 DM II (diabetes mellitus, type II), controlled E11.9 COPD (chronic obstructive pulmonary disease) J44.9 COPD type: unspecified COPD Chronic heart failure with preserved ejection fraction I50.32 Heart failure chronicity: chronic
[2024-04-28 14:43] VITALS: BP 125/86; PULSE 107; TEMP 97.5; O2SAT 97
[2024-04-28] MEDS: ACETAMINOPHEN 1000 MG/100 ML IV IV ONE (14:56)
[2024-04-28] MEDS: LANTUS PER UNIT CHARGE SQ SCH (15:06)
--- NOTE | 2024-04-28 15:06 | CT Scan Report ---
CT-GUIDED BONE MARROW BIOPSY CLINICAL HISTORY: Multiple myeloma PROCEDURE: Procedure and risks were explained. Informed consent was obtained. A final timeout was com pleted. The patient was placed decubitus position on the CT exam table. The right gluteal region was prepped and draped in sterile fashion. 1% lidocaine was utilized for skin anesthesia. The patient rec eived 1 g Tylenol IV. Utilizing CT guidance, an 11-gauge bone biopsy needle was advanced into the right iliac bone. Multipl e aspirates and one bone core was obtained and given to the lab. The needle was removed and Band-Aid applied. The patient tolerated the procedure well. Vital signs will be monitored on the floor. IMPRESSION: Bone marrow biopsy as above. Performed, dictated, and signed by Tyree Medel PA-C; to be co-signed by Dr. Hipolito Sevilla. Electronically signed by: Hipolito Sevilla M.D. 04/28/2024 3:09 PM
[2024-04-28] MEDS: INSULIN HUMAN NPH SC SCH (15:07)
== END 2024-04-28 15:57 | disposition home or self-care (01) | DRG 177 ==
LOC: ED 08:53 → SUATTDRO 11:47 → 2N 11:47 → 3E 04-25 15:35

== ENCOUNTER 2024-05-22 15:18 | Inpatient (IN) ==
--- OUTSIDE RECORDS SUMMARY | 2024-05-22 15:23 | External Medical Summary | Continuity of Care Document ---
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, [address] [address] [phone] Encounter Diagnosis Controlled diabetes mellitus with hyperglycemia(Discharge Diagnosis) - 05/11/24 History of multiple myeloma(Discharge Diagnosis) - 05/11/24 Type 2 diabetes mellitus with hyperglycemia(Final) - Personal history of other malignant neoplasms of lymphoid, hematopoietic and related tissues(Final) - Discharge Disposition: Home or Self Care [...] Disp# 102 lancet, Refills: 0, 32G x /32, Pharmacy:[facility]/pharmacy #[id number] Start Date: 06/30/23 Status: Ordered allopurinol 300 mg oral tablet Start: 04/04/24 11:56:00 PM EST, 1 tab, PO, Daily, Disp# 90 tab, Refills: 3, Pharmacy: [facility]/pharmacy #[id number] Start Date: 04/04/24 Status: Ordered ALPRAZolam 0.5 mg oral tablet Start: 02/15/24 10:01:00 AM EDT, 1 tab, PO, bid, Disp# 90 tab, Refills: 5, Make take an extra tablet for acute panic attacks. Max 3/day, PRN: as needed for anxiety, Pharmacy: [facility]/pharmacy #[id number] Start Date: 02/15/24 Status: Ordered BD needle Ultra-Fine Pen 29G x 0.5" Start: 05/11/24 9:58:00 AM EST, See Instructions, Disp# 100 each, Use as directed with insulin. Max _4_/day. Use new pen needle with each injection., Note to Pharmacy: E11.65, Pharmacy: [facility]/pharmacy #[id number] Start Date: 05/11/24 Status: Ordered buprenorphine-naloxone 8 mg-2 mg sublingual film Start: 02/16/24 2:18:00 PM EDT, 0.5 patch, SL, bid, Disp# 30 patch, Refills: 0, Note to Pharmacy: PDMP checked & CSA on file., Pharmacy: [facility]/pharmacy #[id number] Start Date: 02/16/24 Stop Date: 03/17/24 Status: Ordered CeleXA 10 mg oral tablet Start: 02/19/24 2:25:00 PM EDT, 1 tab, PO, bid Start Date: 02/19/24 Status: Ordered colchicine 0.6 mg oral tablet TAKE 2 TABLETS BY MOUTH ONCE, THEN TAKE 1 TABLET TWICE A DAY FOR 3 DAYS NEEDED FOR GOUT ATTACKS Start Date: 11/03/23 Status: Ordered Dexcom G6 Field Technical Assistant Kit Start: 10/11/23 8:34:00 PM EDT, See Instructions, Disp# 1 kit, Test three times daily, Note to Pharmacy: Dx E11.65, Pharmacy: [facility]/pharmacy #[id number] Start Date: 10/11/23 Status: Ordered Dexcom G6 Sensor Kit Start: 11/25/23 11:27:00 AM EDT, See Instructions, Disp# 3 kit, Refills: 5, Test three times daily, Note to Pharmacy: Dx E11.65, Pharmacy: [facility]/pharmacy #[id number] Start Date: 11/25/23 Status: Ordered DEXCOM G6 TRANSMITTER Start: 03/23/24 9:59:00 AM EST, DEXCOM G6 TRANSMITTER, See Instructions, Disp# 1 unknown unit, Refills: 4, TEST 3 TIMES A DAY, Pharmacy [id number] Start Date: 03/23/24 Status: Ordered DEXCOM G6 TRANSMITTER Start: 02/16/24 4:40:00 PM EDT, DEXCOM G6 TRANSMITTER, See Instructions, Disp# 1 unknown unit, Refills: 0, TEST 3 TIMES A DAY, Pharmacy [id number] Start Date: 02/16/24 Status: Ordered Dexcom G6 Transmitter Kit Start: 10/11/23 8:36:00 PM EDT, See Instructions, Disp# 1 kit, Test three times daily, [id number] Start Date: 10/11/23 Status: Ordered fluconazole 100 mg oral tablet Start: 04/29/24 8:46:00 AM EST, 1 tab, PO, Daily Start Date: 04/29/24 Status: Ordered fluticasone 50 mcg/inh nasal spray Start: 09/02/23 9:54:00 AM EDT, 1 spray, each nostril, bid Start Date: 09/02/23 Status: Ordered Lantus Solostar Pen 100 units/mL subcutaneous solution Start: 03/28/24 2:11:00 PM EST, 60 unit =, subQ, qAM, Disp# 15 unknown unit, Refills: 1, Pharmacy: [id number] Start Date: 03/28/24 Status: Ordered levalbuterol CFC free 45 mcg/inh inhalation aerosol Start: 03/15/24 7:32:00 AM EST, 2 puff, inhaled, q6h, Disp# 15 each, Refills: 2, PRN: NEEDED FORWHEEZING, Pharmacy: [id number] Start Date: 03/15/24 Status: Ordered montelukast 10 mg oral tablet Start: 11/24/23 3:55:00 PM EDT Start Date: 11/24/23 Status: Ordered NovoLOG FlexPen 100 units/mL injectable solution Start: 12/09/23 11:19:00 AM EDT, 10 unit =, subQ, ac, Disp# 15 mL, Refills: 5, [id number] Start Date: 12/09/23 Status: Ordered ondansetron 4 mg oral tablet, disintegrating Start: 12/08/23 5:45:00 PM EDT, 1 tab, PO, q8h, Disp# 30 tab, Refills: 1, PRN: NEEDED FOR NAUSEA/VOMITING, Pharmacy: [id number] Start Date: 12/08/23 Status: Ordered Potassium Chloride (Ifj-Tfao-Phn M20) 20 mEq oral tablet, extended release Start: 01/04/24 11:19:00 AM EDT, 2 tab, PO, qid, Disp# 720 tab, Refills: 3, [id number] Start Date: 01/04/24 Status: Ordered predniSONE 10 mg oral tablet Start: 05/11/24 10:10:00 AM EST, See Instructions, Disp# 45 tab, 2 qd x 7 days, then 1.5 tabs daily,[id number] Start Date: 05/11/24 Status: Ordered Seroquel 100 mg oral tablet Start: 02/15/24 10:04:00 AM EDT, 1 tab, PO, Daily, Disp# 90 tab, Refills: 5, [id number] Start Date: 02/15/24 Stop Date: 08/08/25 Status: Ordered Silvadene 1% topical cream Start: 03/08/24 1:33:00 PM EST, 1 appl, topical, bid, Disp# 15 g, Pharmacy: [facility]/pharmacy #[id number] Start Date: 03/08/24 Status: Ordered spironolactone 50 mg oral tablet Start: 02/15/24 9:57:00 AM EDT, 1 tab, PO, Daily, Disp# 90 tab, Refills: 3, Pharmacy: [facility]/pharmacy #[id number] Start Date: 02/15/24 Status: Ordered torsemide 100 mg oral tablet Start: 04/29/24 8:46:00 AM EST, 1 tab, PO, Daily Start Date: 04/29/24 Status: Ordered Trelegy Ellipta 200 mcg-62.5 mcg-25 mcg/inh inhalation powder Start: 07/08/22 11:13:00 AM EDT Start Date: 07/08/22 Status: Ordered Ventolin HFA 90 mcg/inh inhalation aerosol Start: 08/13/23 11:23:00 AM EDT, 2 puff, inhaled, qid, Disp# 8 g, Refills: 5, PRN: as needed for wheezing, Pharmacy: [facility]/pharmacy #[id number] Start Date: 08/13/23 Status: Ordered Mental Status 05/11/24 Barriers to Learning one year None evide nt Mandatory Health Literacy Documentation Yes Health Literacy Communication Barriers N ever Primary Language Croatian Problem List Condition Confirmation Course Effective Dates [...] Controlled diabetes mellitus with hyperglycemia Discharge Diagnosis 05/11/24 Non-Specified History of multiple myeloma Discharge Diagnosis 05/11/24 Non-Specified Procedures Procedure Date Related Diagnosis Body Site Status Bone marrow biopsy 2013 [facility] ganesh Results Laboratory List Name Date Basic Metabolic Panel (BASIC METAB PANEL ) 05/11/24 Complete Blood Count (CBC) 05/11/24 Hemoglobin A1C (HEMOGLOBIN, A1C) 05/11/24 Hepatic Function Panel (HEPATIC FUNCT PA SHANE) 05/11/24 Thyroid Stimulating Hormone (TSH) 5 Most recent to oldest [Reference Range]: 1 eGFR CKD-EPI [>60 mL/min/1.73 m2] 79 mL/ min/1.73 m2 1 (05/11/24 10:35 AM) Estimated Average Glucose 200 mg/dL 2 (05/11/24 10:35 AM) Estimated CrCl 72.01 mL/min (05/11/24 12:32 PM) MPV [9.0-12.2 fL] 10.6 fL (05/11/24 10:35 AM) RDW [11.5-14.2 %] 22.2 % *HI* (05/11/24 10:35 AM) Anion Gap [5-14 mmol/L] 4 mmol/L *LOW* (05/11/24 10:35 AM) Alb [3.5-5.0 g/dL] 4.1 g/dL (05/11/24 10:35 AM) Alk Phos [38-126 unit/L] 108 unit/L (05/11/24 10:35 AM) ALT [<35 unit/L] 34 unit/L (05/11/24 10:35 AM) AST [15-46 unit/L] 32 unit/L (05/11/24 10:35 AM) BUN [7-20 mg/dL] 15 mg/dL (05/11/24 10:35 AM) Ca [8.4-10.2 mg/dL] 9.0 mg/dL (05/11/24 10:35 AM) Cl- [96-107 mmol/L] 98 mmol/L (05/11/24 10:35 AM) HCO3 [22-30 mmol/L] 36 mmol/L *HI* (05/11/24 10:35 AM) Cret [0.60-1.00 mg/dL] 0.83 mg/dL (05/11/24 10:35 AM) D Bili [0.0-0.6 mg/dL] 0.3 mg/dL (05/11/24 10:35 AM) HbA1c [4.0-6.0 %] 8.6 % *HI* (05/11/24 10:35 AM) Glu [74-106 mg/dL] 98 mg/dL (05/11/24 10:35 AM) Hct [35-44 %] 43.4 % (05/11/24 10:35 AM) Hgb [11.7-15.0 g/dL] 12.6 g/dL (05/11/24 10:35 AM) K [3.5-5.1 mmol/L] 5.0 mmol/L (05/11/24 10:35 AM) MCH [28-33 pg] 24.4 pg *LOW* (05/11/24 10:35 AM) MCHC [32-36 g/dL] 29.0 g/dL *LOW* (05/11/24 10:35 AM) MCV [81-96 fL] 84.1 fL (05/11/24 10:35 AM) Na [137-145 mmol/L] 138 mmol/L (05/11/24 10:35 AM) Plts [150-350 K/uL] 255 K/uL (05/11/24 10:35 AM) RBC [3.90-5.00 M/uL] 5.16 M/uL *HI* (05/11/24 10:35 AM) T Bili [0.2-1.3 mg/dL] 0.4 mg/dL (05/11/24 10:35 AM) Prot [6.3-8.2 g/dL] 7.2 g/dL 3 (05/11/24 10:35 AM) TSH [0.47-4.68 uIU/mL] 0.93 uIU/mL 4 (05/11/24 10:35 AM) WBC [4.0-10.4 K/uL] 17.20 K/uL *HI* (05/11/24 10:35 AM) 1Result Comment: Testing Performed By: Dept of Pathology [facility] Gabino George, [address] [place] [address], [place] [address] 2Result Comment: Testing Performed By: Dept of Pathology [facility] Gabino George, [address] [place] [address], [place] [address] 3Result Comment: Testing Performed By: Dept of Pathology [facility] Gabino George, [address] [place] [address], [place] [address] 4Result Comment: Testing Performed By: Dept of Pathology [facility] Gabino George, [address] [place] [address], [place] [address] Vital Signs Most recent to oldest [Reference Range]: 1 Patient Weight 92.6 kg (05/11/24 9:23 AM) Heart Rate 54 bpm (05/11/24 9:23 AM) Respiratory Rate 18 br/min (05/11/24 9:23 AM) Blood Pressure 138/98mmHg (05/11/24 9:23 AM) Cuff Pulse Pressure 40 mmHg (05/11/24 9:23 AM) Social History Social History Type Response Smoking Status [facility] Sex Female Sex Representation Female (finding) Patient Care team information Care Team Personnel Name: ELENA Barboza, Radha Bhatia Position: Physician Toribiot Christ - Family Med Member Role: Primary Care Provider Address: [address] [facility] [address] [place] [id number] Name: MARGARET Dunn Jo Ann M Position: Nurse Pract - Hem/Onc Member Role: Lifetime Relationship Address: [address] [place] [id number] Care Team Related Persons Name: [place] SAMUEL
[2024-05-22 16:24] LABS: Hematocrit (blood only) 41.5 % (37.0-47.0); Hemoglobin 12.6 g/dl (12.0-16.0); Mean Corpuscular Hemoglobin 23.8 pg (25.0-34.0); Mean Corpuscular Hgb Conc 30.4 g/dL (32.0-36.0); Mean Corpuscular Volume 78.4 fL (80.0-100.0); Mean Platelet Volume 9.6 fL (9.4-12.4); Platelet Count 348 K/uL (130-400); RDW Coefficient of Variation 21.7 % (11.5-14.5); RDW Standard Deviation 59.7 fL (36.4-46.3); Red Blood Count 5.29 M/uL (4.20-5.40); White Blood Count 14.05 K/ul (4.8-10.8)
[2024-05-22 16:42] LABS: Anisocytosis Present; Basophils # (auto) 0.02 K/uL (0.00-0.20); Basophils % (auto) 0.1 %; Immature Granulocytes % (auto) 2.8 %; Lymphocytes # (auto) 0.78 K/uL (1.20-3.40); Lymphocytes % (auto) 5.6 %; Monocytes # (auto) 0.15 K/uL (0.11-0.59); Monocytes % (auto) 1.1 %; Neutrophils % (auto) 90.4 %; Ovalocytes 1+; Polychromasia 1+; Stomatocytes 1+
[2024-05-22 16:53] LABS: Partial Thromboplastin Ratio 0.8; Partial Thromboplastin Time 21 Seconds (21-31); Prothrombin Time 10.7 Seconds (9.0-12.0)
[2024-05-22 16:55] LABS: Alanine Aminotransferase 21 U/L (7-52); Albumin Globulin Ratio 1.6 (0.9-2); Albumin Level 4.2 gm/dl (3.4-5.0); Alkaline Phosphatase 112 U/L (34-104); Anion Gap 10 (3-11); Aspartate Aminotransferase 15 U/L (13-39); BUN Creatinine Ratio 14.7 (10-20); Bilirubin,Total 0.3 mg/dl (0.2-1.0); Blood Urea Nitrogen 14 mg/dl (6-23); Carbon Dioxide 32 mmol/L (21-32); Chloride 93 mmol/L (98-107); Globulin 2.7 gm/dl (2.5-4.0); Glucose 312 mg/dl (70-99(Fasting)); Potassium 4.4 mmol/L (3.5-5.1); Sodium 135 mmol/L (136-145); Total Protein 6.9 gm/dl (6.0-8.3); Troponin I High Sensitivity 14.4 pg/ml (0-14)
--- NOTE | 2024-05-22 17:16 | Emergency Department Note ---
Impression & Plan Acute exacerbation of chronic obstructive pulmonary disease, Fluid overload, Anxiety ED Provider Note Provider: Tigre Monique MD CHIEF COMPLAINT: Breathing issues, possible anxiety HISTORY OF PRESENT ILLNESS: Patient is a 64-year-old female history of diabetes, distant prior bone marrow transplant, thrush, COPD, CHF hospitalization at beginning of this month presenting here today reporting concern of possible COPD exacerbation. Last evening used her CPAP and thought she had a panic attack. [place] claustrophobic with it and since then the breathing has not been good. Just cannot get any good breath since then but no syncope or trauma. Did use her nebulizer as well as rescue inhaler without improvement. Not hypoxic here. States he is taking medication for some thrush that she has and is on a prednisone taper. Was unable to really take her small anxiety medicine due to thrush and feels quite anxious. No significant fevers or bodyaches or nausea or vomiting reported otherwise. No chest pain reported. PAST MEDICAL HISTORY: As noted above MEDICATIONS: Reviewed home medications SOCIAL HISTORY: Going through divorce and from [facility]. Smoker PHYSICAL EXAM: GENERAL: alert and oriented seated on stretcher appears anxious and mildly tachypneic Head: normocephalic and atraumatic EYES: No injection, discharge or icterus. PERRL, EOMI. NECK: Trachea midline. Supple. ENT: Mucous membranes pink and moist. LUNGS: Airway patent. No retractions but mildly tachypneic. Breath sounds with mild diffuse expiratory HEART: Regular rate and rhythm. No chest wall tenderness ABDOMEN: Soft and non-tender, without guarding or rebound. SKIN: Acyanotic, warm, dry, without rashes EXTREMITIES: Without tenderness with 2+ edema of the lower extremities she states is about chronic. Some very slight erythema and some dry crackles skin there. Also reports a bit of swelling to the bilateral hands. NEUROLOGICAL: No focal deficits. No aphasia. No facial droop or slurred speech. Ambulatory. EK bpm sinus tachycardia. No PVC or PAC. No acute ST segment elevation or depression. CONTINUOUS CARDIAC MONITORING: was ordered and showed a heart rate of 90s to 110s bpm in normal sinus rhythm to sinus tachycardia Patient's laboratory studies and imaging reviewed. Differential includes Reactive airway disease, pneumonia, pneumothorax, COPD, CHF, infections, cardiac ischemia, pulmonary embolism, musculoskeletal, gastrointestinal, as well as other pathologies. IMPRESSION/MEDICAL DECISION MAKING: Patient extensive respiratory history and history of CHF. Is a diabetic. Not severely hypoxic here significantly fluid overloaded on clinical exam. From triage blood work here with mild leukocytosis but improving from previous. No significant anemia. No severe electrolyte abnormality with normal renal function. No significant transaminitis. High sensitive troponin not significantly elevated compared to previous and I doubt ACS or cardiac disease. Does seem a bit anxious and did not take her Xanax at home. As such given a bit of Ativan here. Is somewhat wheezy and given a DuoNeb and a small additional IV dose of steroids although she is already on prednisone. Is some hyperglycemic with her type 2 diabetes consider some insulin but blood sugar improved on its own. Respiratory viral panel completed and negative. Chest x-ray here without evidence of obvious pneumonia or significant effusion. Maybe some slight pulmonary vascular congestion. Doubt the patient suffering from an acute PE. Patient on reassessment is having some improvement. Both breathing and anxiety are improving. Does report some stable swelling of the legs and some increase swelling of the bilateral hands. Question how much this is from the prednisone or not but we will diurese little bit with the chest x-ray findings. She does report that she did take her meds today but will give some additional IV Lasix here for additional diuresis. In discussion with her while her breathing is improving given her extensive history she shared decision making wished to stay in the hospital. Will discuss with the hospitalist team for further observation here. DIAGNOSIS: Acute COPD exacerbation, hyperglycemia due to type 2 diabetes, fluid overload DISPOSITION: Hospitalist will evaluate Patient was agreeable with this plan. Past Med/Surg History Problem List (Updated 05/22/24 @ 18:17 by Tigre Monique M.D.) Anxiety (Acute) Fluid overload (Acute) Acute exacerbation of chronic obstructive pulmonary disease (Acute) Thrush of mouth and esophagus Hyperglycemia due to diabetes mellitus (Acute) Chronic hypercapnic respiratory failure Bone marrow transplant status Bronchiectasis Allergic asthma Lower extremity edema Generalized anxiety disorder Heart failure with preserved ejection fraction DM II (diabetes mellitus, type II), controlled COPD (chronic obstructive pulmonary disease) COPD exacerbation (Acute) Dyspnea D-dimer, elevated (Acute) Palpitations (Acute) Chest pain (Acute) Bilateral knee pain CHF exacerbation (Acute) COPD exacerbation (Acute) Chest pain Right knee pain Elevated troponin (Acute) Acute exacerbation of chronic obstructive pulmonary disease (Acute) Leukocytosis (Acute) Acute hypokalemia (Acute) Diabetes Hypokalemia Tobacco abuse counseling Moderate persistent asthma Constipation Acute bronchitis Pulmonary vascular congestion Medical History Normocytic hypochromic anemia Failure of outpatient treatment Bilateral edema of lower extremity Gout Tobacco use disorder Hematochezia History of pulmonary embolism Micheal esophagitis Acute and chronic respiratory failure with hypoxia Chronic anticoagulation Obesity hypoventilation syndrome Multiple myeloma Last chemotherapy 2017 Follows with medical oncology in [facility] History of pulmonary embolism Acute exacerbation of chronic obstructive pulmonary disease Acute heart failure with preserved ejection fraction (HFpEF) Acute exacerbation of chronic obstructive pulmonary disease Tobacco abuse Opiate dependence Asthma Surgical History No pertinent past surgical history Family History Sister Asthma Social History Smoking Status: Current every day smoker Tobacco Type: Cigarettes Age Started Using Tobacco: 15; Cigarettes Per Day: 1-3; Second Hand Exposure: Yes; Do You Dip or Chew Tobacco: No; Hx Alcohol Use: No Hx Substance Use: No Preferred Language: Faroese Communication Ability: Effective Pit Laborer Required: No Beliefs That Will Affect Care: None Current Living Situation: Family Current Living Situation Comment: Lives with sister Feels Safe at Home: Yes Assistive Devices: BiPap and Oxygen - at Night Allergies Allergies Allergy/AdvReac Type Severity Reaction Status Date / Time codeine Allergy Severe Anaphylaxis Verified 05/22/24 18:54 Iodinated Contrast Media Allergy Severe Anaphylaxis Verified 05/22/24 18:54 shellfish derived Allergy Severe Anaphylaxis Verified 05/22/24 18:54 tramadol Allergy Intermediate ITCHINESS Verified 05/22/24 18:54 pollen extracts Allergy Mild Congested Verified 05/22/24 18:55 iohexol Allergy Unknown CAN'T Verified 05/22/24 18:54 REMEMBER diphenhydramine AdvReac Severe Anxiety Verified 05/22/24 18:54 [From Benadryl] promethazine AdvReac Intermediate Anxiety Verified 05/22/24 18:54 Home Meds Home Medications Medication Instructions Recorded Confirmed levalbuterol HCl 1.25 mg/3 mL 1.25 mg inhalation Q8H PRN 01/16/23 04/19/24 solution for nebulization Shortness Of Breath Or Wheezing albuterol sulfate 90 mcg/actuation 2 puff inhalation Q4H PRN 08/30/23 05/22/24 aerosol inhaler Shortness Of Breath Or Wheezing insulin aspart U-100 100 unit/mL 10 unit subcut TIDM 11/07/23 04/19/24 (3 mL) subcutaneous pen (Novolog FlexPen U-100 Insulin aspart) alprazolam 0.5 mg tablet 0.5 mg PO BID PRN ANXIETY 02/28/24 04/19/24 insulin glargine 100 unit/mL (3 50 unit subcut QAM 02/28/24 04/19/24 mL) subcutaneous pen (Lantus Solostar U-100 Insulin) ondansetron 4 mg disintegrating 4 mg PO Q8 PRN NAUSEA/VOMITING 02/28/24 04/19/24 tablet allopurinol 300 mg tablet 300 mg PO DAILY 03/23/24 05/22/24 budesonide 0.25 mg/2 mL suspension 0.25 mg inhalation BID 03/23/24 04/19/24 for nebulization levalbuterol tartrate 45 2 puff inhalation Q6H PRN WHEEZE 03/23/24 04/19/24 mcg/actuation aerosol inhaler quetiapine 100 mg tablet 100 mg PO HS 03/23/24 04/21/24 silver sulfadiazine 1 % topical 1 applic topical BID 03/23/24 04/19/24 cream citalopram 20 mg tablet 20 mg PO HS 04/21/24 04/21/24 prednisone 5 mg tablet 15 mg PO DAILY 04/21/24 04/21/24 spironolactone 50 mg tablet 50 mg PO QAM 04/21/24 04/21/24 Previous Rx's Medication Instructions Recorded fluticasone propionate 50 1 spray intranasal BID nasal 09/15/23 mcg/actuation nasal congestion #0 mL spray,suspension (Flonase Allergy Relief) ipratropium bromide 0.02 % 3 ml continuous nebulization QID 10/17/23 solution for inhalation PRN shortness of breath #75 mL calcium polycarbophil 625 mg 625 mg PO QAM #30 tabs 10/30/23 tablet (Fiber (calcium polycarbophil)) ascorbic acid (vitamin C) 500 mg 1,000 mg (2 x 500 mg) PO DAILY #60 01/02/24 tablet (Vitamin C) tabs colchicine 0.6 mg capsule 0.6 mg PO DAILY PRN joint pain #30 03/01/24 caps potassium chloride 20 mEq 40 meq (2 x 20 mEq) PO DAILY #0 03/28/24 tablet,extended tabs release(part/cryst) (Klor-Con M) fluconazole 100 mg tablet 100 mg PO QAM #7 tabs 04/26/24 (Diflucan) guaifenesin 100 mg/5 mL oral liquid 100 mg (5 mL) PO Q6H #200 mL 04/26/24 guaifenesin 600 mg tablet, 600 mg PO Q12 #14 tabs 04/26/24 extended release 12 hr (Mucinex) torsemide 100 mg tablet 100 mg PO QAM #30 tabs 04/26/24 prednisone 10 mg tablet 10 mg PO DIRECTED #23 tabs 04/28/24 fluticasone fur. 200 mcg-umeclid 1 ea inhalation QAM #60 ea 05/19/24 62.5 mcg-vilant 25 mcg inhalat.powder (Trelegy Ellipta) Results & Data (ED) Vital Signs Vital Signs - 24 hr 05/22/24 15:21 05/22/24 17:11 05/22/24 17:30 Temperature 36.0 C L Temperature Source Temporal Artery Scan Pulse Rate 105 H Pulse Rate [Left Apical] 101 H Respiratory Rate 28 H 27 H Respiratory Effort / Characteristics Spontaneous Short of Breath Respiratory Depth Normal Respiratory Pattern Regular Blood Pressure 150/84 H 143/87 H Blood Pressure [Right Arm] 132/79 Blood Pressure Mean 106 95 Blood Pressure Mean [Right Arm] 96 Blood Pressure Position [Right Arm] Sitting Pulse Oximetry 99 95 Oxygen Delivery Method Room Air Room Air Sepsis Recent Fever Within 48 Hours No Sepsis New/Unexplained Change in Mental Status N/A Sepsis Action Taken by Nursing Adv Provider Notified 05/22/24 17:42 05/22/24 17:43 05/22/24 17:51 Temperature Temperature Source Pulse Rate 96 H 94 H Pulse Rate [Left Apical] 95 H Respiratory Rate 17 22 19 Respiratory Effort / Characteristics Non-Labored Spontaneous Respiratory Depth Respiratory Pattern Blood Pressure Blood Pressure [Right Arm] Blood Pressure Mean Blood Pressure Mean [Right Arm] Blood Pressure Position [Right Arm] Pulse Oximetry 94 Oxygen Delivery Method Room Air Sepsis Recent Fever Within 48 Hours Sepsis New/Unexplained Change in Mental Status Sepsis Action Taken by Nursing 05/22/24 17:52 05/22/24 18:00 05/22/24 18:21 Temperature Temperature Source Pulse Rate 103 H 96 H Pulse Rate [Left Apical] Respiratory Rate 19 Respiratory Effort / Characteristics Respiratory Depth Respiratory Pattern Blood Pressure 147/95 H Blood Pressure [Right Arm] Blood Pressure Mean 116 Blood Pressure Mean [Right Arm] Blood Pressure Position [Right Arm] Pulse Oximetry Oxygen Delivery Method Sepsis Recent Fever Within 48 Hours Sepsis New/Unexplained Change in Mental Status Sepsis Action Taken by Nursing 05/22/24 18:24 05/22/24 18:30 05/22/24 18:33 Temperature Temperature Source Pulse Rate 97 H 100 H Pulse Rate [Left Apical] Respiratory Rate 29 H 26 H Respiratory Effort / Characteristics Respiratory Depth Respiratory Pattern Blood Pressure 135/97 Blood Pressure [Right Arm] Blood Pressure Mean 111 Blood Pressure Mean [Right Arm] Blood Pressure Position [Right Arm] Pulse Oximetry Oxygen Delivery Method Sepsis Recent Fever Within 48 Hours Sepsis New/Unexplained Change in Mental Status Sepsis Action Taken by Nursing 05/22/24 18:37 Temperature Temperature Source Pulse Rate Pulse Rate [Left Apical] 105 H Respiratory Rate 25 H Respiratory Effort / Characteristics Non-Labored Spontaneous Respiratory Depth Normal Respiratory Pattern Regular Blood Pressure Blood Pressure [Right Arm] Blood Pressure Mean Blood Pressure Mean [Right Arm] Blood Pressure Position [Right Arm] Pulse Oximetry 95 Oxygen Delivery Method Room Air Sepsis Recent Fever Within 48 Hours Sepsis New/Unexplained Change in Mental Status Sepsis Action Taken by Nursing Laboratory Data 05/22/24 16:00 05/22/24 16:00 Lab Results 05/22/24 05/22/24 05/22/24 Range/Units 16:00 17:41 Unknown WBC 14.05 H (4.8-10.8) K/ul RBC 5.29 (4.20-5.40) M/uL Hgb 12.6 (12.0-16.0) g/dl Hct 41.5 (37.0-47.0) % MCV 78.4 L (80.0-100.0) fL MCH 23.8 L (25.0-34.0) pg MCHC 30.4 L (32.0-36.0) g/dL RDW Std Deviation 59.7 H (36.4-46.3) fL RDW Coeff of [place] 21.7 H (11.5-14.5) % Plt Count 348 (130-400) K/uL MPV 9.6 (9.4-12.4) fL Immature Gran % (Auto) 2.8 % Neut % (Auto) 90.4 % Lymph % (Auto) 5.6 % [place] % (Auto) 1.1 % Eos % (Auto) 0.0 % Baso % (Auto) 0.1 % Neut # (Auto) 12.70 H (1.40-6.50) K/uL Lymph # (Auto) 0.78 L (1.20-3.40) K/uL [place] # (Auto) 0.15 (0.11-0.59) K/uL Eos # (Auto) 0.00 (0.00-0.50) K/uL Baso # (Auto) 0.02 (0.00-0.20) K/uL Immature Gran # (Auto) 0.40 H (0.01-0.20) K/uL Polychromasia 1+ Anisocytosis Present Ovalocytes 1+ Stomatocytes 1+ PT 10.7 (9.0-12.0) Seconds INR 1.0 (0.9-1.1) APTT 21 (21-31) Seconds PTT Ratio 0.8 Sodium 135 L (136-145) mmol/L Potassium 4.4 (3.5-5.1) mmol/L Chloride 93 L (98-107) mmol/L Carbon Dioxide 32 (21-32) mmol/L Anion Gap 10 (3-11) BUN 14 (6-23) mg/dl Creatinine 0.95 (0.6-1.2) mg/dl Est Cr Clr Drug Dosing Not Reportable eGFR 67.32 BUN/Creatinine Ratio 14.7 (10-20) Glucose 312 H* (70-99(Fasting)) mg/dl POC Glucose 268 H (70-99) mg/dl Calcium 9.0 (8.6-10.3) mg/dl Total Bilirubin 0.3 (0.2-1.0) mg/dl AST 15 (13-39) U/L ALT 21 (7-52) U/L Alkaline Phosphatase 112 H (34-104) U/L Troponin I High Sens 14.4 H (0-14) pg/ml Total Protein 6.9 (6.0-8.3) gm/dl Albumin 4.2 (3.4-5.0) gm/dl Globulin 2.7 (2.5-4.0) gm/dl Albumin/Globulin Ratio 1.6 (0.9-2) Adenovirus (PCR) Not Detected (NotDetected) B. pertussis DNA (PCR) Not Detected (NotDetected) B.parapertussis DNA PCR Not Detected (NotDetected) C. pneumoniae DNA (PCR) Not Detected (NotDetected) Coronavirus OC43 (PCR) Not Detected (NotDetected) Coronavirus HKU1 (PCR) Not Detected (NotDetected) Coronavirus 229E (PCR) Not Detected (NotDetected) SARS-CoV-2 (PCR) Not Detected (NotDetected) Coronavirus NL63 (PCR) Not Detected (NotDetected) Human Metapneumovir PCR Not Detected (NotDetected) Influenza Type A (PCR) Not Detected (NotDetected) Influenza Type B (PCR) Not Detected (NotDetected) M. pneumoniae (PCR) Not Detected (NotDetected) Parainfluenza 1 (PCR) Not Detected (NotDetected) Parainfluenza 2 (PCR) Not Detected (NotDetected) Parainfluenza 3 (PCR) Not Detected (NotDetected) Parainfluenza 4 (PCR) Not Detected (NotDetected) RSV (PCR) Not Detected (NotDetected) Entero/Rhino (PCR) Not Detected (NotDetected) Administered Medications Discontinued Medications Albuterol (Albut/Ipratrop 3mg/0.5mg Neb 3 Ml Vial) 12 ml NEB ONE ONE; Protocol Stop: 05/22/24 17:22 Last Admin: 05/22/24 17:47 Dose: 12 ml Documented By: EM Furosemide (Furosemide 40 Mg/4 Ml Vial) 40 mg IV ONE ONE Stop: 05/22/24 18:15 Last Admin: 05/22/24 18:37 Dose: 40 mg Documented By: [facility] Insulin Human Regular (Novolin-R Insulin Per Unit Charge) 5 units IV NOW STA Stop: 05/22/24 17:29 Last Admin: 05/22/24 17:48 Dose: Not Given Documented By: [facility] Lorazepam (Lorazepam 1 Mg/1 Ml Syr Ed Inj Use) 1 mg IV ONE STA Stop: 05/22/24 17:22 Last Admin: 05/22/24 17:42 Dose: 1 mg Documented By: JOSS Methylprednisolone (Methylprednisolone 125 Mg/2 Ml Vial) 60 mg IV NOW STA Stop: 05/22/24 17:22 Last Admin: 05/22/24 17:42 Dose: 60 mg Documented By: [facility] Imaging Data Radiologist's Impression: Chest X-Ray 05/22/24 15:29 INDICATION: Chest pain. TECHNIQUE: Frontal radiograph of the chest. COMPARISON: Radiograph from 04/19/2024. FINDINGS: Cardiomegaly. Mild pulmonary vascular congestion. Low inspiratory depth. No infiltrate, pleural effusion or pneumothorax. No acute osseous abnormality evident. IMPRESSION: Mild pulmonary vascular congestion. Electronically signed by Yovani Nava 05-22-2024 5:45 PM Discharge Plan Visit Data Chief Complaint: Shortness of Breath/Dyspnea Stated Complaint: TROUBLE BREATHING, HAS COPD ED Provider: Tigre Monique Discharge Problem: Acute exacerbation of chronic obstructive pulmonary disease, Fluid overload, Anxiety Patient Disposition: Being Evaluated by Hospitalist Forms Stand Alone Forms: [facility] [employer] Prescriptions Prescriptions: No Action Trelebird Ellipta 200-62.5-25 mcg blister with device 1 ea INHALATION QAM Qty: 60 0RF potassium chloride [Klor-Con M20] 20 mEq tablet,ER particles/crystals 40 meq PO DAILY Qty: 0 0RF levalbuterol HCl 1.25 mg/3 mL solution for nebulization 1.25 mg INHALATION Q8H PRN (Reason: Shortness Of Breath Or Wheezing) albuterol sulfate 90 mcg/actuation HFA aerosol inhaler 2 puff INHALATION Q4H PRN (Reason: Shortness Of Breath Or Wheezing) ipratropium bromide 0.02 % solution 3 ml continuous nebulization QID PRN (Reason: shortness of breath) Qty: 75 0RF calcium polycarbophil [Fiber (calcium polycarbophil)] 625 mg Tablet 625 mg PO QAM Qty: 30 0RF silver sulfadiazine 1 % cream 1 applic topical BID quetiapine 100 mg tablet 100 mg PO HS budesonide 0.25 mg/2 mL suspension for nebulization 0.25 mg inhalation BID allopurinol 300 mg tablet 300 mg PO DAILY levalbuterol tartrate 45 mcg/actuation HFA aerosol inhaler 2 puff INHALATION Q6H PRN (Reason: WHEEZE) prednisone 5 mg tablet 15 mg PO DAILY Hold Instructions: Resume on 05/07/24. After hospital steroid taper complete citalopram 20 mg tablet 20 mg PO HS spironolactone 50 mg tablet 50 mg PO QAM torsemide 100 mg Tablet 100 mg PO QAM Qty: 30 0RF guaifenesin [Mucinex] 600 mg Tablet Extended Release 12hr 600 mg PO Q12 Qty: 14 0RF guaifenesin 100 mg/5 mL Liquid 100 mg PO Q6H Qty: 200 0RF fluconazole [Diflucan] 100 mg Tablet 100 mg PO QAM Qty: 7 0RF prednisone 10 mg tablet 10 mg PO DIRECTED Qty: 23 0RF Rx Instructions: Take 30mg daily. Decrease by 5mg every 3 days until at 15mg/day then continue prior home dose of 15mg/day. fluticasone propionate [Flonase Allergy Relief] 50 mcg/actuation spray,suspension 1 spray intranasal BID Qty: 0 0RF insulin aspart U-100 [Novolog FlexPen U-100 Insulin] 100 unit/mL (3 mL) insulin pen 10 unit subcut TIDM ascorbic acid (vitamin C) [Vitamin C] 500 mg Tablet 1,000 mg PO DAILY Qty: 60 0RF alprazolam 0.5 mg tablet 0.5 mg PO BID PRN (Reason: ANXIETY ) Hold Instructions: Resume on 04/06/24. Hold while you finish the course of fluconazole for the oral and esophageal thrush Rx Instructions: PT MAY TAKE AN EXTRA TAB FOR ACUTE PANIC ATTACKS- MAX 3 TABS DAILY ondansetron 4 mg tablet,disintegrating 4 mg PO Q8 PRN (Reason: NAUSEA/VOMITING) insulin glargine [Lantus Solostar U-100 Insulin] 100 unit/mL (3 mL) insulin pen 50 unit SUBCUT QAM colchicine 0.6 mg capsule 0.6 mg PO DAILY PRN (Reason: joint pain) Qty: 30 0RF Referrals Referrals: Radha Barboza PA-C [Primary Care Provider] -
[2024-05-22 17:28] LABS: Adenovirus PCR Not Detected (NotDetected); Bordetella parapertussis PCR Not Detected (NotDetected); Bordetella pertussis PCR Not Detected (NotDetected); Chlamydia pneumoniae PCR Not Detected (NotDetected); Coronavirus 229E PCR Not Detected (NotDetected); Coronavirus CoV-2 (COVID19)PCR Not Detected (NotDetected); Coronavirus HKU1 PCR Not Detected (NotDetected); Coronavirus NL63 PCR Not Detected (NotDetected); Coronavirus OC43PCR Not Detected (NotDetected); Human Metapneumovirus PCR Not Detected (NotDetected); Influenza A PCR Not Detected (NotDetected); Influenza B PCR Not Detected (NotDetected); Mycoplasma pneumoniae PCR Not Detected (NotDetected); Parainfluenza Virus 1 PCR Not Detected (NotDetected); Parainfluenza Virus 2 PCR Not Detected (NotDetected); Parainfluenza Virus 3 PCR Not Detected (NotDetected); Parainfluenza Virus 4 PCR Not Detected (NotDetected); Respiratory Syncytial VirusPCR Not Detected (NotDetected); Rhinovirus/Enterovirus PCR Not Detected (NotDetected)
[2024-05-22] MEDS: LORazepam 1 MG/1 ML SYR ED Inj Use IV STA (17:42)
[2024-05-22] MEDS: methylPREDNISolone 125 MG/2 ML VIAL IV STA (17:42)
[2024-05-22] MEDS: ALBUT/IPRATROP 3MG/0.5MG NEB 3 ML VIAL NEB ONE (17:47)
--- NOTE | 2024-05-22 17:47 | XRay Report ---
INDICATION: Chest pain. TECHNIQUE: Frontal radiograph of the chest. COMPARISON: Radiograph from 04/19/2024. FINDINGS: Cardiomegaly. Mild pulmonary vascular congestion. Low inspiratory depth. No infiltrate, pleural effusion or pneumothorax. No acute osseous abnormality evident. IMPRESSION: Mild pulmonary vascular congestion. Electronically signed by Yovani Nava 05-22-2024 5:45 PM
[2024-05-22] MEDS: NovoLIN-R INSULIN PER UNIT CHARGE IV STA (17:48)
[2024-05-22] MEDS: FUROSEMIDE 40 MG/4 ML VIAL IV ONE (18:37)
--- NOTE | 2024-05-22 19:21 | History & Physical Report ---
Date of Service May 22, 2024 Assessment & Plan (1) Acute exacerbation of chronic obstructive pulmonary disease: (2) Thrush of mouth and esophagus: (3) Hyponatremia: (4) Heart failure with preserved ejection fraction: (5) Elevated troponin: Plan Patient is a 64-year-old female PMHx chronic hypercapnic respiratory failure, asthma, COPD, HFpEF, T2DM, and AYAN with most recent hospital admission 04/19/24- 04/28/2024 for COVID-19 and acute/chronic respiratory failure who is presenting to ED for worsening SOB with anxiety. Feels as though she "cannot get the air out." Workup reveals leukocytosis with neutrophil predominance, Na 135, chloride 93, troponin 14.4, and BioFire negative. CXR reveals mild pulmonary vascular congestion, and EKG sinus tachycardia at a rate of 104. Received methylprednisolone, lorazepam, insulin, furosemide, and albuterol nebulizer while in ED. #COPD exacerbation Symptomatic with SOB + chest pain; history of chronic hypercapnic respiratory failure, asthma, and COPD. Does have leukocytosis on exam and on chronic steroids, would prefer to add abx at time of admission to cover. - Leukocytosis (14k) on admission; CXR with mild pulm vascular congestion; pending BNP, VBG's, Pro-Chad - Not requiring O2 at time of admission; Oxygen as needed, although attempt to wean off as tolerated; FV + IC - Continue outpatient inhalers in nebulizer form --> Duonebs q4h, Formoterol/budesonide nebs BID - On prednisone 10 mg daily and given methylprednisolone 60mg IV in ED--> Increase to 40mg and taper prior to dc - Azithromycin 500mg x 3 days (QTc WNL, will watch QT on tele given on multiple prolonging agents) #Michela of esophagus Per patient, not noticeable on exam at back of throat; Continuous symptoms substernally when swallowing. States that the thrush gets better while she is in the hospital, but once she is discharged, the symptoms start again. Likely exacerbated by chronic steroid use. - Swish + swallow BID - May utilize IV ativan TID if unable to swallow for anxiety #Elevated troponin No chest pain, per patient. - Troponin 14.4, pending repeat; EKG ST at 104bpm, without ischemic changes - Likely 2/2 demand ischemia #Hyponatremia Likely 2/2 fluid overload, asymptomatic. Hypervolemic on exam - Na 135, corrected for hyperglycemia 140- BMP am - Continue diuretic + fluid restriction #HFpEF Presenting with SOB x 1 day. Does appear slightly volume overloaded on exam, 1+ BLE pitting edema. CXR w/ mild vasc pulm congestion. - Weight not obtained at admission, please obtain; Daily weights standing and I+Os - Echo 07/2023 -study technically limited, appear to be normal EF without significant wall motion abnormality - BNP pending - CXR w/ mild pulm vascular congestion- given Lasix 40mg IV in ED, on po spironolactone + Torsemide at home- continue po medications and adjust to IV if needed; net output of - 1 to 1.5 L per day; will adjust dose as appropriate - Promote leg elevation and frequent movement as able #DMT2 H/o DMT2, outpatient medications Lantus 50 units SQ QAM, NovoLog 10 units SQ TIDM - Most recent A1C 8.3% (12/2023) - BSG ACHS with SSI- Goal Range: Low 120 mg/dL - High 150 mg/dL, CF 15, CR 5 - Follow glycemic management per last admission- Lantus 55 Units daily - per last hospital admission; takes NovoLog 10 U daily, Lantus 50 U every morning at home - Pharm glycemic consult placed, appreciate input - Adjust regimen as needed #AYAN- Quetiapine 200mg, alprazolam 0.5mg TID (per patient) but may utilize IV Ativan while inpatient /2 to thrush, citalopram 10mg BID #Opioid use disorder- Suboxone as prescribed, taking as prescribed per pt #H/o MM w/ stem cell transplant- Follows w/ oncology, will follow CBC #Gout- No acute attacks; Allopurinol #ELEUTERIO- CPAP, may use own Dispo: Admit VTE Prophylaxis: Lovenox This document was dictated utilizing [employer]. Please excuse anygrammatical errors that may be secondary to use of this software. Admission and Anticipated Discharge Date Admission Date: 05/22/2024 History of Present Illness Chief Complaint: SOB Primary Care Provider: Radha Barboza Patient is a 64-year-old female PMHx chronic hypercapnic respiratory failure, asthma, COPD, HFpEF, T2DM, and AYAN with most recent hospital admission 04/19/24- 04/28/2024 for COVID-19 and acute/chronic respiratory failure who is presenting to ED for worsening SOB with anxiety. The night prior to arrival she was wearing her CPAP and felt that she was very claustrophobic and had a "anxiety attack". Has been utilizing supplemental O2 more than usual. Worsening SOB and chest pain today, did try to utilize 2 nebulizer treatments this morning. No coughing, no F/C, no syncope. Patient states that she feels as though she cannot get air out. Denying chest pain, palpitations, abdominal pain, N/V/D/C, LUTS, numbness/tingling, or URI symptoms otherwise. ED evaluation revealed leukocytosis with neutrophil predominance, sodium 135, chloride 93, troponin 14.4, and BioFire negative. CXR reveals mild pulmonary vascular congestion, and EKG sinus tachycardia at a rate of 104. Received methylprednisolone, lorazepam, insulin, furosemide, and albuterol nebulizer while in ED. Please see Dr. Mckenna's attestation for adjustments/additions to treatment plan. Allergies Allergy/AdvReac Type Severity Reaction Status Date / Time codeine Allergy Severe Anaphylaxis Verified 05/22/24 18:54 Iodinated Contrast Media Allergy Severe Anaphylaxis Verified 05/22/24 18:54 shellfish derived Allergy Severe Anaphylaxis Verified 05/22/24 18:54 tramadol Allergy Intermediate ITCHINESS Verified 05/22/24 18:54 pollen extracts Allergy Mild Congested Verified 05/22/24 18:55 iohexol Allergy Unknown CAN'T Verified 05/22/24 18:54 REMEMBER diphenhydramine AdvReac Severe Anxiety Verified 05/22/24 18:54 [From Benadryl] promethazine AdvReac Intermediate Anxiety Verified 05/22/24 18:54 Home Medications Medication Instructions Recorded Confirmed Type levalbuterol HCl 1.25 mg/3 mL 1.25 mg inhalation Q8H PRN 01/16/23 05/22/24 History solution for nebulization Shortness Of Breath Or Wheezing albuterol sulfate 90 mcg/actuation 2 puff inhalation Q4H PRN 08/30/23 05/22/24 History aerosol inhaler Shortness Of Breath Or Wheezing fluticasone propionate 50 1 spray intranasal BID nasal 09/15/23 05/22/24 Rx mcg/actuation nasal congestion #0 mL spray,suspension (Flonase Allergy Relief) ipratropium bromide 0.02 % 3 ml continuous nebulization QID 10/17/23 05/22/24 Rx solution for inhalation PRN shortness of breath #75 mL calcium polycarbophil 625 mg 625 mg PO QAM #30 tabs 10/30/23 05/22/24 Rx tablet (Fiber (calcium polycarbophil)) insulin aspart U-100 100 unit/mL 10 unit subcut TIDM 11/07/23 05/22/24 History (3 mL) subcutaneous pen (Novolog FlexPen U-100 Insulin aspart) ascorbic acid (vitamin C) 500 mg 1,000 mg (2 x 500 mg) PO DAILY #60 01/02/24 05/22/24 Rx tablet (Vitamin C) tabs alprazolam 0.5 mg tablet 0.5 mg PO BID PRN ANXIETY 02/28/24 05/22/24 History insulin glargine 100 unit/mL (3 50 unit subcut QAM 02/28/24 05/22/24 History mL) subcutaneous pen (Lantus Solostar U-100 Insulin) ondansetron 4 mg disintegrating 4 mg PO Q8 PRN NAUSEA/VOMITING 02/28/24 05/22/24 History tablet colchicine 0.6 mg capsule 0.6 mg PO DAILY PRN joint pain #30 03/01/24 05/22/24 Rx caps allopurinol 300 mg tablet 300 mg PO DAILY 03/23/24 05/22/24 History budesonide 0.25 mg/2 mL suspension 0.25 mg inhalation BID 03/23/24 05/22/24 History for nebulization levalbuterol tartrate 45 2 puff inhalation Q6H PRN WHEEZE 03/23/24 05/22/24 History mcg/actuation aerosol inhaler quetiapine 100 mg tablet 100 mg PO HS 03/23/24 05/22/24 History silver sulfadiazine 1 % topical 1 applic topical BID 03/23/24 05/22/24 History cream potassium chloride 20 mEq 40 meq (2 x 20 mEq) PO DAILY #0 03/28/24 05/22/24 Rx tablet,extended tabs release(part/cryst) (Klor-Con M) citalopram 20 mg tablet 20 mg PO HS 04/21/24 05/22/24 History prednisone 5 mg tablet 15 mg PO DAILY 04/21/24 05/22/24 History spironolactone 50 mg tablet 50 mg PO QAM 04/21/24 05/22/24 History guaifenesin 100 mg/5 mL oral liquid 100 mg (5 mL) PO Q6H #200 mL 04/26/24 05/22/24 Rx guaifenesin 600 mg tablet, 600 mg PO Q12 #14 tabs 04/26/24 05/22/24 Rx extended release 12 hr (Mucinex) torsemide 100 mg tablet 100 mg PO QAM #30 tabs 04/26/24 05/22/24 Rx prednisone 10 mg tablet 10 mg PO DIRECTED #23 tabs 04/28/24 05/22/24 Rx fluticasone fur. 200 mcg-umeclid 1 ea inhalation QAM #60 ea 05/19/24 05/22/24 Rx 62.5 mcg-vilant 25 mcg inhalat.powder (Trelegy Ellipta) Past Med/Surg History Problem List Hyponatremia Anxiety (Acute) Fluid overload (Acute) Acute exacerbation of chronic obstructive pulmonary disease (Acute) Thrush of mouth and esophagus Hyperglycemia due to diabetes mellitus (Acute) Chronic hypercapnic respiratory failure Bone marrow transplant status Bronchiectasis Allergic asthma Lower extremity edema Generalized anxiety disorder Heart failure with preserved ejection fraction DM II (diabetes mellitus, type II), controlled COPD (chronic obstructive pulmonary disease) COPD exacerbation (Acute) Dyspnea D-dimer, elevated (Acute) Palpitations (Acute) Chest pain (Acute) Bilateral knee pain CHF exacerbation (Acute) COPD exacerbation (Acute) Chest pain Right knee pain Elevated troponin (Acute) Acute exacerbation of chronic obstructive pulmonary disease (Acute) Leukocytosis (Acute) Acute hypokalemia (Acute) Diabetes Hypokalemia Tobacco abuse counseling Moderate persistent asthma Constipation Acute bronchitis Pulmonary vascular congestion Medical History Elevated brain natriuretic peptide (BNP) level Acute dyspnea Acute hypoxic respiratory failure Elevated troponin COVID-19 Normocytic hypochromic anemia Failure of outpatient treatment Bilateral edema of lower extremity Gout Tobacco use disorder Hematochezia History of pulmonary embolism Michela esophagitis Acute and chronic respiratory failure with hypoxia Chronic anticoagulation Obesity hypoventilation syndrome Multiple myeloma Last chemotherapy 2016 Follows with medical oncology in [facility] History of pulmonary embolism Acute exacerbation of chronic obstructive pulmonary disease Acute heart failure with preserved ejection fraction (HFpEF) Acute exacerbation of chronic obstructive pulmonary disease Tobacco abuse Opiate dependence Asthma Surgical History No pertinent past surgical history Family History Sister Asthma Social History Smoking Status: Current every day smoker Tobacco Type: Cigarettes Age Started Using Tobacco: 15; Cigarettes Per Day: 1-3; Second Hand Exposure: Yes; Do You Dip or Chew Tobacco: No; Hx Alcohol Use: No Hx Substance Use: No Preferred Language: [place] Citizen Communication Ability: Effective Bottle Hop Required: No Beliefs That Will Affect Care: None Current Living Situation: Family Current Living Situation Comment: Lives with sister Feels Safe at Home: Yes Assistive Devices: BiPap and Oxygen - at Night Review of Systems Review of Systems: All systems reviewed & are unremarkable except as noted in Subjective Physical Exam Physical Exam: General: No acute distress Skin: Warm and dry Head: Normocephalic, atraumatic Eyes: PERRL, conjunctivae clear, sclera non-icteric ENT: External ear and ear canal without swelling; nose atraumatic; poor dentition, tongue normal appearance, pharynx normal without tonsillar swelling or exudate Neck: Supple, no LAD; no JVD Cardio: RRR, no M/G/R, S1 and S2 normal Resp: No respiratory distress, wheezing on expiration bilateral lung soriano, poor air movement throughout, no rales or rhonchi Abdomen: Soft, symmetric, nontender; no distention; chronic bruising throughout abdomen; No masses or hepatosplenomegaly; Bowel sounds normoactive MSK: No deformities, full ROM throughout; pulses palpable and equal; 1+ pitting edema BLE. Neuro: Awake, alert; CN grossly intact Psych: Appropriate mood and affect; good judgement and insight. Results & Data Results & Data Vital Signs (Past 12 Hours) Vital Signs Temp Pulse Pulse Resp BP BP Pulse Ox 05/22/24 18:37 105 H 25 H 95 05/22/24 18:33 100 H 26 H 05/22/24 18:30 135/97 05/22/24 18:24 97 H 29 H 05/22/24 18:21 96 H 19 05/22/24 18:00 147/95 H 05/22/24 17:52 103 H 05/22/24 17:51 94 H 19 05/22/24 17:43 95 H 22 94 05/22/24 17:42 96 H 17 05/22/24 17:30 143/87 H 05/22/24 17:11 101 H 27 H 132/79 95 05/22/24 15:21 36.0 C L 105 H 28 H 150/84 H 99 O2 Del Method 05/22/24 18:37 Room Air 05/22/24 18:33 05/22/24 18:30 05/22/24 18:24 05/22/24 18:21 05/22/24 18:00 05/22/24 17:52 05/22/24 17:51 05/22/24 17:43 Room Air 05/22/24 17:42 05/22/24 17:30 05/22/24 17:11 Room Air 05/22/24 15:21 Room Air Laboratory Results 05/22/24 05/22/24 05/22/24 Unknown 17:41 16:00 WBC 14.05 H RBC 5.29 Hgb 12.6 Hct 41.5 MCV 78.4 L MCH 23.8 L MCHC 30.4 L RDW Std Deviation 59.7 H RDW Coeff of Malick 21.7 H Plt Count 348 MPV 9.6 Immature Gran % (Auto) 2.8 Neut % (Auto) 90.4 Lymph % (Auto) 5.6 Gulf % (Auto) 1.1 Eos % (Auto) 0.0 Baso % (Auto) 0.1 Neut # (Auto) 12.70 H Lymph # (Auto) 0.78 L [place] # (Auto) 0.15 Eos # (Auto) 0.00 Baso # (Auto) 0.02 Immature Gran # (Auto) 0.40 H Polychromasia 1+ Anisocytosis Present Ovalocytes 1+ Stomatocytes 1+ PT 10.7 INR 1.0 APTT 21 PTT Ratio 0.8 Sodium 135 L Potassium 4.4 Chloride 93 L Carbon Dioxide 32 Anion Gap 10 BUN 14 Creatinine 0.95 Est Cr Clr Drug Dosing Not Reportable eGFR 67.32 BUN/Creatinine Ratio 14.7 Glucose 312 H* POC Glucose 268 H Calcium 9.0 Total Bilirubin 0.3 AST 15 ALT 21 Alkaline Phosphatase 112 H Troponin I High Sens 14.4 H Total Protein 6.9 Albumin 4.2 Globulin 2.7 Albumin/Globulin Ratio 1.6 Adenovirus (PCR) Not Detected B. pertussis DNA (PCR) Not Detected B.parapertussis DNA PCR Not Detected C. pneumoniae DNA (PCR) Not Detected Coronavirus OC43 (PCR) Not Detected Coronavirus HKU1 (PCR) Not Detected Coronavirus 229E (PCR) Not Detected SARS-CoV-2 (PCR) Not Detected Coronavirus NL63 (PCR) Not Detected Human Metapneumovir PCR Not Detected Influenza Type A (PCR) Not Detected Influenza Type B (PCR) Not Detected M. pneumoniae (PCR) Not Detected Parainfluenza 1 (PCR) Not Detected Parainfluenza 2 (PCR) Not Detected Parainfluenza 3 (PCR) Not Detected Parainfluenza 4 (PCR) Not Detected RSV (PCR) Not Detected Entero/Rhino (PCR) Not Detected Diagnostic Findings Chest X-Ray 05/22/24 15:29 INDICATION: Chest pain. TECHNIQUE: Frontal radiograph of the chest. COMPARISON: Radiograph from 04/19/2024. FINDINGS: Cardiomegaly. Mild pulmonary vascular congestion. Low inspiratory depth. No infiltrate, pleural effusion or pneumothorax. No acute osseous abnormality evident. IMPRESSION: Mild pulmonary vascular congestion. Electronically signed by Yovani Nava 05-22-2024 5:45 PM Medications Administered Methylprednisolone 60 mg IV Lorazepam 1 mg IV Insulin human regular 5U IV Furosemide 40 mg IV Albuterol 12 mL neb ECG Additional Comments: Sinus tachycardia, anterior infarct (07/28/2023) 104 BPM, [place] 138, QRS 72, QT/QTc 328/431, PRT 46/21/61 Code Status & VTE Plan Code Status Full PG Care Time/CCT Total # of Minutes Spent Total Time Spent with Patient: Total time spent is greater than 50% in coordination of care (as documented) at patient's floor/unit and/or counseling patient: Coding Level of Care Code 00032 INT INP/OBS CARE 3/75MIN Diagnoses Acute exacerbation of chronic obstructive pulmonary disease J44.1 Thrush of mouth and esophagus B37.81; B37.0 Hyponatremia E87.1 Chronic heart failure with preserved ejection fraction I50.32 Heart failure chronicity: chronic Elevated troponin R79.89 (4) Heart failure with preserved ejection fraction Heart failure chronicity: chronic Qualified Code(s): I50.32 - Chronic diastolic (congestive) heart failure
[2024-05-22] MEDS ORDERED: LORazepam 2 MG/1 ML VIAL IV PRN (20:39)
[2024-05-22] MEDS ORDERED: LEVALBUTEROL 1.25 MG/3 ML NEB INH PRN (21:54)
[2024-05-22] MEDS ORDERED: GLUCOSE 40% GEL 15 GM TUBE PO PRN (21:54)
[2024-05-22] MEDS ORDERED: GLUCOSE 10 TAB/TUBE PO PRN (21:54)
[2024-05-22] MEDS ORDERED: LEVALBUTEROL TARTRATE 15 GM HFA.AER.AD INH PRN (21:54)
[2024-05-22] MEDS ORDERED: DEXTROSE 50% 50 ML SYRINGE IV PRN (21:54)
[2024-05-22] MEDS ORDERED: ONDANSETRON 4 MG OD TAB PO PRN (21:54)
[2024-05-22] MEDS ORDERED: CARBOHYDRATES FOR HYPOGLYCEMIA PO PRN (21:54)
[2024-05-22] MEDS ORDERED: COLCHICINE 0.6 MG TAB PO PRN (21:54)
[2024-05-22] MEDS ORDERED: PHARMACY GLYCEMIC MGMT CONSULT PRN (21:54)
[2024-05-22] MEDS ORDERED: IPRATROPIUM BROMIDE NEB SOLN 0.02% 0.5MG/2.5ML VIAL NEB PRN (21:54)
[2024-05-22] MEDS ORDERED: GLUCAGON FOR INJ 1 MG VIAL SQ PRN (21:54)
[2024-05-22 22:35] LABS: Base Excess VBG 5.3 mEq/L; HCO3 VBG 32 mmol/L; Oxygen Saturation VBG < 60.0 %; PCO2 VBG 54 mmHg (38-50); PO2 VBG 30 mmHg; pH VBG 7.38 (7.36-7.41)
[2024-05-22] MEDS: AZITHROMYCIN 250 MG TAB PO SCH (23:16)
[2024-05-22] MEDS: QUEtiapine FUMARATE 100 MG TABLET PO SCH (23:16)
[2024-05-22] MEDS: NYSTATIN SUSP 500,000 U/5 ML UDC PO SCH (23:16)
[2024-05-22] MEDS: guaiFENesin 600 MG TABCR PO SCH (23:16)
[2024-05-22] MEDS: CITALOPRAM 20 MG TAB PO SCH (23:17)
[2024-05-22] MEDS: SILVER SULFADIAZINE 1% CR 50 GM JAR/TUBE TOP SCH (23:18)
[2024-05-22] MEDS: FLUTICASONE PROPIONATE NA SPR 16 GM BTL SCH (23:19)
[2024-05-22] MEDS: INSULIN ASPART PER UNIT CHARGE SC SCH (23:20)
[2024-05-22] MEDS: FORMOTEROL 20 MCG/2 ML VIAL NEB SCH (23:37)
[2024-05-22] MEDS: ALBUT/IPRATROP 3MG/0.5MG NEB 3 ML VIAL NEB SCH (23:37)
[2024-05-23] MEDS: INSULIN ASPART PER UNIT CHARGE SC SCH ×2 (00:45→03:50)
[2024-05-23] MEDS: LORazepam 2 MG/1 ML VIAL IV PRN (05:56)
[2024-05-23] MEDS: ENOXAPARIN INJ 40 MG/0.4 ML SYR SQ SCH (06:10)
[2024-05-23 07:02] LABS: Hematocrit (blood only) 40.2 % (37.0-47.0); Hemoglobin 12.2 g/dl (12.0-16.0); Mean Corpuscular Hemoglobin 23.4 pg (25.0-34.0); Mean Corpuscular Hgb Conc 30.3 g/dL (32.0-36.0); Mean Corpuscular Volume 77.2 fL (80.0-100.0); Mean Platelet Volume 9.8 fL (9.4-12.4); Platelet Count 329 K/uL (130-400); RDW Coefficient of Variation 21.2 % (11.5-14.5); RDW Standard Deviation 57.2 fL (36.4-46.3); Red Blood Count 5.21 M/uL (4.20-5.40); White Blood Count 13.99 K/ul (4.8-10.8)
[2024-05-23] MEDS: BUDESONIDE 0.5 MG/2 ML VIAL (PULMICORT) NEB SCH (07:04)
[2024-05-23 07:56] VITALS: BP 124/75; RESP 14; TEMP 97.9; O2SAT 91
--- NOTE | 2024-05-23 08:13 | Hospitalist Progress Note ---
Date of Service May 23, 2024 Assessment & Plan (1) Acute exacerbation of chronic obstructive pulmonary disease: (2) Thrush of mouth and esophagus: (3) Hyponatremia: (4) Heart failure with preserved ejection fraction: (5) Elevated troponin: Plan Patient is a 64-year-old female PMHx chronic hypercapnic respiratory failure, asthma, COPD, HFpEF, T2DM, and AYAN with most recent hospital admission 04/19/24- 04/28/2024 for COVID-19 and acute/chronic respiratory failure who is presenting to ED for worsening SOB with anxiety. Feels as though she "cannot get the air out." BioFire negative. CXR reveals mild pulmonary vascular congestion. #COPD exacerbation Leukocytosis improved from recent admission and not worsening. Will continue 3 day course of Azithromycin PO Supportive care: FV, IS, scheduled nebs (Duonebs q4h, Formoterol/budesonide nebs BID) On prednisone 10 mg daily --> Increase to 40mg and taper prior to dc #Michela of esophagus Per patient, not noticeable on exam at back of throat; Continuous symptoms substernally when swallowing. States that the thrush gets better while she is in the hospital, but once she is discharged, the symptoms start again. Likely exacerbated by chronic steroid use. - Swish + swallow BID - May utilize IV ativan TID if unable to swallow for anxiety #Elevated troponin Peaked at 14.4. No chest pain. Likely 2/[address] at 104bpm, without ischemic changes #Hyponatremia Likely 2/2 fluid overload, asymptomatic. Hypervolemic on exam - Na 135, corrected for hyperglycemia 140- BMP am - Continue diuretic + fluid restriction #HFpEF Presenting with SOB x 1 day. Does appear slightly volume overloaded on exam, 1+ BLE pitting edema. CXR w/ mild vasc pulm congestion. - Weight not obtained at admission, please obtain; Daily weights standing and I+Os - Echo 07/2023 -study technically limited, appear to be normal EF without significant wall motion abnormality - BNP pending - CXR w/ mild pulm vascular congestion- given Lasix 40mg IV in ED, on po spironolactone + Torsemide at home- continue po medications and adjust to IV if needed; net output of - 1 to 1.5 L per day; will adjust dose as appropriate - Promote leg elevation and frequent movement as able #DMT2 H/o DMT2, outpatient medications Lantus 50 units SQ QAM, NovoLog 10 units SQ TIDM - Most recent A1C 8.3% (12/2023) - BSG ACHS with SSI- Goal Range: Low 120 mg/dL - High 150 mg/dL, CF 15, CR 5 - Follow glycemic management per last admission- Lantus 55 Units daily - per last hospital admission; takes NovoLog 10 U daily, Lantus 50 U every morning at home - Pharm glycemic consult placed, appreciate input - Adjust regimen as needed #AYAN- Quetiapine 200mg, alprazolam 0.5mg TID (per patient) but may utilize IV Ativan while inpatient 2/2 to thrush, citalopram 10mg BID #Opioid use disorder- Suboxone as prescribed, taking as prescribed per pt #H/o MM w/ stem cell transplant- Follows w/ oncology, will follow CBC #Gout- No acute attacks; Allopurinol #ELEUTERIO- CPAP, may use own Dispo: Admit VTE Prophylaxis: Lovenox This document was dictated utilizing [employer]. Please excuse anygrammatical errors that may be secondary to use of this software. Admission and Anticipated Discharge Date Admission Date: May 22, 2024 Results & Data Results & Data Vital Signs (Past 12 Hours) Vital Signs Temp Pulse Pulse Pulse Resp BP Pulse Ox 05/23/24 07:55 97.9 F 96 H 14 124/75 91 05/23/24 07:06 90 18 90 05/23/24 07:00 90 05/23/24 03:56 97.3 F L 90 20 133/89 97 05/23/24 03:22 64 14 96 05/23/24 02:42 63 18 96 05/23/24 01:56 100 H 05/23/24 00:13 92 H 13 99 05/22/24 23:38 99 H 18 94 05/22/24 23:28 97.9 F 100 H 22 119/64 92 05/22/24 22:00 05/22/24 21:38 98 H 05/22/24 21:35 98.2 F 103 H 22 159/95 H 95 05/22/24 21:08 99 H 12 122/83 96 05/22/24 21:03 97 H 16 05/22/24 20:42 98 H 20 05/22/24 20:27 100 H 20 92 05/22/24 20:15 100 H 15 93 O2 Del Method O2 Flow Rate 05/23/24 07:55 Room Air 05/23/24 07:06 Room Air 05/23/24 07:00 05/23/24 03:56 CPAP 05/23/24 03:22 2 05/23/24 02:42 CPAP 2 05/23/24 01:56 05/23/24 00:13 2 05/22/24 23:38 Room Air 05/22/24 23:28 Room Air 05/22/24 22:00 Room Air 05/22/24 21:38 05/22/24 21:35 Room Air 05/22/24 21:08 Room Air 05/22/24 21:03 05/22/24 20:42 05/22/24 20:27 Room Air 05/22/24 20:15 Room Air PG Care Time/CCT Total # of Minutes Spent Total Time Spent with Patient: Total time spent is greater than 50% in coordination of care (as documented) at patient's floor/unit and/or counseling patient: Coding Diagnoses Acute exacerbation of chronic obstructive pulmonary disease J44.1 Thrush of mouth and esophagus B37.81; B37.0 Hyponatremia E87.1 Chronic heart failure with preserved ejection fraction I50.32 Heart failure chronicity: chronic Elevated troponin R79.89 (4) Heart failure with preserved ejection fraction Heart failure chronicity: chronic Qualified Code(s): I50.32 - Chronic diastolic (congestive) heart failure
[2024-05-23] MEDS: predniSONE 20 MG TAB PO SCH (08:18)
[2024-05-23] MEDS: ASCORBIC ACID 500 MG TAB PO SCH (08:19)
[2024-05-23] MEDS: TORSEMIDE 100 MG TAB PO SCH (08:19)
[2024-05-23] MEDS: allopurinoL 300 MG TAB PO SCH (08:19)
[2024-05-23] MEDS: SPIRONOLACTONE 25 MG TAB PO SCH (08:20)
[2024-05-23] MEDS: CALCIUM POLYCARBOPHIL 625MG TAB PO SCH (08:23)
[2024-05-23] MEDS: LANTUS PER UNIT CHARGE SQ SCH (08:29)
[2024-05-23] MEDS: POTASSIUM CHLORIDE CRTAB 20 MEQ TABCR PO SCH (08:34)
[2024-05-23 09:45] VITALS: PULSE 99
--- NOTE | 2024-05-23 11:20 | Electrocardiogram Report ---
Test Reason : Blood Pressure : */* mmHG Vent. Rate : 104 BPM Atrial Rate : 104 BPM P-R Int : 138 ms QRS Dur : 72 ms QT Int : 328 ms P-R-T Axes : 46 21 61 degrees QTcB Int : 431 ms Sinus tachycardia Poor R wave progression, consider anterior [place] vs. lead placement vs. LVH Abnormal ECG When compared with ECG of 19-Apr-2024 09:08, Nonspecific T wave abnormality, improved in Lateral leads Confirmed by José Miguel Gotti ([id number]) on 05/23/2024 11:19:53 AM Referred By: REFERRED SELF Confirmed By: José Miguel Gotti
--- NOTE | 2024-05-23 12:23 | Discharge Summary ---
Discharge Summary Date of Service May 23, 2024 Principal Dx & Hospital Course #1 = Principal Diagnosis (1) Acute exacerbation of chronic obstructive pulmonary disease: (2) Thrush of mouth and esophagus: (3) Hyponatremia: (4) Heart failure with preserved ejection fraction: (5) Elevated troponin: Plan Patient is a 64-year-old female PMHx chronic hypercapnic respiratory failure, asthma, COPD, HFpEF, T2DM, and AYAN with most recent hospital admission 04/19/24- 04/28/2024 for COVID-19 and acute/chronic respiratory failure who is presenting to ED for worsening SOB with anxiety. Feels as though she "cannot get the air out." BioFire negative. CXR reveals mild pulmonary vascular congestion. #COPD exacerbation Leukocytosis improved from recent admission and not worsening. Breathing is back to baseline. Does not need continued azithromycin. Return to home inhalers, encourage CPAP compliance at home. Patient states she is unsure what her baseline prednisone dose should be, given a taper that does wean her off completely - but recommend she discuss with Pulmology at her visit tomorrow for further recormmendations. #Michela of esophagus Per patient, not noticeable on exam at back of throat; Continuous symptoms substernally when swallowing. States that the thrush gets better while she is in the hospital, but once she is discharged, the symptoms start again. Likely exacerbated by chronic steroid use. Continue nystatin at discharge. Discussed swish and spit with inhaler use. #Elevated troponin Peaked at 14.4. No chest pain. Likely 2/[address] at 104bpm, without ischemic changes #HFpEF Continue home medications (spironolactone and torsemide). Wean off steroids if able. Encouraged compliance to low sodium diet and fluid restriction at home. #DMT2 H/o DMT2, outpatient medications Lantus 50 units SQ QAM, NovoLog 10 units SQ TIDM - continue at discharge #AYAN- Quetiapine 200mg, alprazolam 0.5mg TID (per patient) , citalopram 10mg BID. Handout given regarding box breathing. #Opioid use disorder- Suboxone as prescribed, taking as prescribed per pt #H/o MM w/ stem cell transplant- Follows w/ oncology, will follow CBC #Gout- No acute attacks; Allopurinol #ELEUTERIO- CPAP, may use own Dispo: discharge to home today Notes For Next Care Provider clarify with pulm what her final dose of prednisone should be if she needs to be on a maintenance dose - as may br contributing to thrush and CHF Medication Changes From Visit nystatin and prednisone taper Admission HPI Per Admitting Provider Patient is a 64-year-old female PMHx chronic hypercapnic respiratory failure, asthma, COPD, HFpEF, T2DM, and AYAN with most recent hospital admission 04/19/24- 04/28/2024 for COVID-19 and acute/chronic respiratory failure who is presenting to ED for worsening SOB with anxiety. The night prior to arrival she was wearing her CPAP and felt that she was very claustrophobic and had a "anxiety attack". Has been utilizing supplemental O2 more than usual. Worsening SOB and chest pain today, did try to utilize 2 nebulizer treatments this morning. No coughing, no F/C, no syncope. Patient states that she feels as though she cannot get air out. Denying chest pain, palpitations, abdominal pain, N/V/D/C, LUTS, numbness/tingling, or URI symptoms otherwise. ED evaluation revealed leukocytosis with neutrophil predominance, sodium 135, chloride 93, troponin 14.4, and BioFire negative. CXR reveals mild pulmonary vascular congestion, and EKG sinus tachycardia at a rate of 104. Received methylprednisolone, lorazepam, insulin, furosemide, and albuterol nebulizer while in ED. Please see Dr. Mckenna's attestation for adjustments/additions to treatment plan. Discharge Exam General: NAD, VS as above Resp: normal respiratory effort, on room air, no wheezing CV: RRR, no murmur, Abd: normal bowel sounds, non tender, no hepatosplenomegaly Extremities: Moves all extremities, trace edema Neuro: A&O x3, Discharge Plan Discharge Items Patient Disposition: Home - Self-Care Reason For Visit: ACUTE/CHRONIC RESPIRATORY FAILURE Discharge Diagnosis: Chronic respiratory failure Activity: Resume your previous activity Weightbearing: Full weightbearing Non-emergency contact: Primary Care Provider Call non-emergency contact if: you have any medication questions, your symptoms worsen, your pain is worsening and your temperature is above 101 Follow-up/Referrals: Jonnie Dan MD [Physician] - 05/24/24 (keep appointment tomorrow 05/24) Radha Barboza PA-C [Primary Care Provider] - 05/30/24 10:00 am () Diet: Carb Consistent or DM2 and Low Sodium (2gm) Fluids: 1800ml (7 cups) Addtl Attending Provider Instructions: Ms. Monzon, You were hospitalized after having shortness of breath and anxiety while wearing your CPAP machine. Thankfully, this episode has resolved and you should continue to use your CPAP machine at home. I have attached a handout for box breathing that can help with anxiety attacks and feeling short of breath. Give it a try! I have sent in a prednisone taper that will be 30 mg tomorrow and eventually wean off of the prednisone. Please discuss with pulmonology if you need to be on steroid everyday or this is something you can be weaned off of. The steroid use and your inhalers are likely contributing to your thrush symptoms & they can also worsen your heart failure symptoms. I have sent in Nystatin that you can use to continue to treat the symptoms. Please continue to swish and spit after using your inhalers. Continue to use your inhalers and nebulizers at home. Keep up the good work! Pending Studies at Discharge: No Stand-Alone Forms: My [facility], Smoking Cessation Medications and DC Order Prescriptions: New nystatin 100,000 unit/mL Suspension 10 ml PO BID Qty: 250 0RF prednisone 10 mg tablet See Taper PO DIRECTED Qty: 24 0RF Taper: Taper, Blank 30 mg DAILY for 3 Days 20 mg DAILY for 5 Days 10 mg DAILY for 5 Days Rx Instructions: see taper instructions Continued Trelegy Ellipta 200-62.5-25 mcg blister with device 1 ea INHALATION QAM Qty: 60 0RF potassium chloride [Klor-Con M20] 20 mEq tablet,ER particles/crystals 40 meq PO DAILY Qty: 0 0RF levalbuterol HCl 1.25 mg/3 mL solution for nebulization 1.25 mg INHALATION Q8H PRN (Reason: Shortness Of Breath Or Wheezing) albuterol sulfate 90 mcg/actuation HFA aerosol inhaler 2 puff INHALATION Q4H PRN (Reason: Shortness Of Breath Or Wheezing) ipratropium bromide 0.02 % solution 3 ml continuous nebulization QID PRN (Reason: shortness of breath) Qty: 75 0RF calcium polycarbophil [Fiber (calcium polycarbophil)] 625 mg Tablet 625 mg PO QAM Qty: 30 0RF silver sulfadiazine 1 % cream 1 applic topical BID quetiapine 100 mg tablet 100 mg PO HS budesonide 0.25 mg/2 mL suspension for nebulization 0.25 mg inhalation BID allopurinol 300 mg tablet 300 mg PO DAILY levalbuterol tartrate 45 mcg/actuation HFA aerosol inhaler 2 puff INHALATION Q6H PRN (Reason: WHEEZE) citalopram 20 mg tablet 20 mg PO HS spironolactone 50 mg tablet 50 mg PO QAM torsemide 100 mg Tablet 100 mg PO QAM Qty: 30 0RF guaifenesin [Mucinex] 600 mg Tablet Extended Release 12hr 600 mg PO Q12 Qty: 14 0RF fluticasone propionate [Flonase Allergy Relief] 50 mcg/actuation spray,suspension 1 spray intranasal BID Qty: 0 0RF insulin aspart U-100 [Novolog FlexPen U-100 Insulin] 100 unit/mL (3 mL) insulin pen 10 unit subcut TIDM ascorbic acid (vitamin C) [Vitamin C] 500 mg Tablet 1,000 mg PO DAILY Qty: 60 0RF alprazolam 0.5 mg tablet 0.5 mg PO BID PRN (Reason: ANXIETY ) Hold Instructions: Resume on 04/06/24. Hold while you finish the course of fluconazole for the oral and esophageal thrush Rx Instructions: PT MAY TAKE AN EXTRA TAB FOR ACUTE PANIC ATTACKS- MAX 3 TABS DAILY ondansetron 4 mg tablet,disintegrating 4 mg PO Q8 PRN (Reason: NAUSEA/VOMITING) insulin glargine [Lantus Solostar U-100 Insulin] 100 unit/mL (3 mL) insulin pen 50 unit SUBCUT QAM colchicine 0.6 mg capsule 0.6 mg PO DAILY PRN (Reason: joint pain) Qty: 30 0RF Discontinued prednisone 5 mg tablet 15 mg PO DAILY Hold Instructions: Resume on 05/07/24. After hospital steroid taper complete guaifenesin 100 mg/5 mL Liquid 100 mg PO Q6H Qty: 200 0RF prednisone 10 mg tablet 10 mg PO DIRECTED Qty: 23 0RF Rx Instructions: Take 30mg daily. Decrease by 5mg every 3 days until at 15mg/day then continue prior home dose of 15mg/day. Discharge Orders: Discharge Order (Routine); Ordered 05/23/24 Ordered By: Ale Barbour/Other Patient Handouts: Asthma COPD Trigger Control, Coping with Heart Failure, Michela Infection: Thrush Admission Data Admit Date/Time: 05/22/24 19:59 Attending Provider: Mine Delgado Admit Provider: Riya Mckenna Primary Care Provider: Radha Barboza Other Providers: Riya Mckenna Other Interventions: Discharge Summary Assessment (RN) Last Done: 05/23/24 10:05 Hospital Stay Data Consultations 05/22/24 19:11 ED Decision to Admit Stat Diagnostic Imagining Performed Chest X-Ray 05/22/24 15:29 INDICATION: Chest pain. TECHNIQUE: Frontal radiograph of the chest. COMPARISON: Radiograph from 04/19/2024. FINDINGS: Cardiomegaly. Mild pulmonary vascular congestion. Low inspiratory depth. No infiltrate, pleural effusion or pneumothorax. No acute osseous abnormality evident. IMPRESSION: Mild pulmonary vascular congestion. Electronically signed by Yovani Nava 05-22-2024 5:45 PM Pending Results Patient Have Any Pending Studies at Discharge: No Discharge Instructions Given to Patient (Per Discharging Provider) Ms. Monzon, You were hospitalized after having shortness of breath and anxiety while wearing your CPAP machine. Thankfully, this episode has resolved and you should continue to use your CPAP machine at home. I have attached a handout for box breathing that can help with anxiety attacks and feeling short of breath. Give it a try! I have sent in a prednisone taper that will be 30 mg tomorrow and eventually wean off of the prednisone. Please discuss with pulmonology if you need to be on steroid everyday or this is something you can be weaned off of. The steroid use and your inhalers are likely contributing to your thrush symptoms & they can also worsen your heart failure symptoms. I have sent in Nystatin that you can use to continue to treat the symptoms. Please continue to swish and spit after using your inhalers. Continue to use your inhalers and nebulizers at home. Keep up the good work! Total Time Total Time Spent Total Time Spent (In Minutes): Time spent day of discharge 35 minutes including direct patient care, medication reconciliation, documentation, review of labs and images, and coordination of care. Coding Level of Care Code 57682 INP/OBS DISCH >30 MIN Diagnoses Acute exacerbation of chronic obstructive pulmonary disease J44.1 Thrush of mouth and esophagus B37.81; B37.0 Hyponatremia E87.1 Chronic heart failure with preserved ejection fraction I50.32 Heart failure chronicity: chronic Elevated troponin R79.89
== END 2024-05-23 10:28 | disposition home or self-care (01) | DRG 190 ==
LOC: ED 15:18 → SUATTDRO 19:59 → 2N 19:59

== ENCOUNTER 2024-06-02 17:10 | Inpatient (IN) ==
[2024-06-02 17:48] LABS: Basophils # (auto) 0.05 K/uL (0.00-0.20); Basophils % (auto) 0.3 %; Eosinophils # (auto) 0.01 K/uL (0.00-0.50); Eosinophils % (auto) 0.1 %; Hematocrit (blood only) 42.6 % (37.0-47.0); Hemoglobin 12.8 g/dl (12.0-16.0); Immature Granulocytes # (auto) 0.47 K/uL (0.01-0.20); Immature Granulocytes % (auto) 2.5 %; Lymphocytes # (auto) 1.59 K/uL (1.20-3.40); Lymphocytes % (auto) 8.4 %; Mean Corpuscular Hemoglobin 24.2 pg (25.0-34.0); Mean Corpuscular Volume 80.7 fL (80.0-100.0); Mean Platelet Volume 9.5 fL (9.4-12.4); Monocytes # (auto) 0.45 K/uL (0.11-0.59); Monocytes % (auto) 2.4 %; Neutrophils # (auto) 16.44 K/uL (1.40-6.50); Neutrophils % (auto) 86.3 %; Nucleated RBC # (auto) 0.02 K/uL (0.00-0.12); Nucleated RBC % (auto) 0.1 %; Platelet Count 349 K/uL (130-400); RDW Coefficient of Variation 21.9 % (11.5-14.5); RDW Standard Deviation 61.2 fL (36.4-46.3); Red Blood Count 5.28 M/uL (4.20-5.40); White Blood Count 19.01 K/ul (4.8-10.8)
[2024-06-02 18:12] LABS: Alanine Aminotransferase 21 U/L (7-52); Albumin Globulin Ratio 1.3 (0.9-2); Albumin Level 4.3 gm/dl (3.4-5.0); Alkaline Phosphatase 120 U/L (34-104); Anion Gap 6 (3-11); BUN Creatinine Ratio 17.8 (10-20); Bilirubin,Total 0.3 mg/dl (0.2-1.0); Blood Urea Nitrogen 16 mg/dl (6-23); Calcium 9.4 mg/dl (8.6-10.3); Carbon Dioxide 39 mmol/L (21-32); Chloride 93 mmol/L (98-107); Globulin 3.2 gm/dl (2.5-4.0); Glucose 261 mg/dl (70-99(Fasting)); Sodium 138 mmol/L (136-145); Total Protein 7.5 gm/dl (6.0-8.3); Troponin I High Sensitivity 20.6 pg/ml (0-14)
[2024-06-02 18:17] LABS: Anisocytosis Present; Stomatocytes 1+
[2024-06-02 18:22] LABS: Influenza A virus by PCR Negative (Neg); Influenza B virus by PCR Negative (Neg); RSV by PCR Negative (Neg); SARS CoV2 RNA(COVID-19) Ceph NEGATIVE (Negative)
[2024-06-02 18:28] LABS: INR 0.9 (0.9-1.1); Partial Thromboplastin Ratio 0.8; Partial Thromboplastin Time 22 Seconds (21-31); Prothrombin Time 10.3 Seconds (9.0-12.0)
[2024-06-02] MEDS: ALBUT/IPRATROP 3MG/0.5MG NEB 3 ML VIAL NEB STA ×2 (18:41→19:04)
[2024-06-02] MEDS: methylPREDNISolone 125 MG/2 ML VIAL IV STA (18:41)
[2024-06-02] MEDS: AZITHROMYCIN 250 MG TAB PO ONE (18:41)
[2024-06-02] MEDS: LORazepam 1 MG/1 ML SYR ED Inj Use IV STA (18:41)
[2024-06-02 18:45] LABS: Base Excess VBG 13.1 mEq/L; HCO3 VBG 41 mmol/L; Oxygen Saturation VBG < 60.0 %; PCO2 VBG 68 mmHg (38-50); PO2 VBG 24 mmHg; pH VBG 7.39 (7.36-7.41)
[2024-06-02 19:03] LABS: Potassium 4.2 mmol/L (3.5-5.1)
--- NOTE | 2024-06-02 20:31 | XRay Report ---
EXAM: XR chest 1V not portable CLINICAL HISTORY: Chest pain, nonspecific. TECHNIQUE: An X-ray image of the chest is obtained in frontal AP projection. COMPARISON: prior 05/22/2024. FINDINGS: Pulmonary Parenchyma: Hazy opacities in both lower lung zones. No pleural effusion. Heart and Mediastinum: Cardiomegaly. No mediastinal mass. Bony Thorax: Osteopenia Degenerative changes of the scanned spine Suspected expansion of the right side of the 4th rib anteriorly Soft Tissues: Soft tissues overlying the chest wall are unremarkable. IMPRESSION: 1. Hazy opacities in both lower lung zones (new finding in the right, stable in the left), may represent infectious/inflammatory process in the right and subsegmental atelectasis in the left. 2. Cardiomegaly. 3. Suspected expansion of the right side of the 4th rib anteriorly. Electronically signed by Rikki Rincon 06-02-2024 7:58 PM
[2024-06-02] MEDS: PIPERACILLIN/TAZOBACTAM 4.5 GM/120 ML BAG IV ONE (20:46)
--- NOTE | 2024-06-02 21:39 | History & Physical Report ---
Date of Service June 02, 2024 Assessment & Plan (1) Pneumonia: Plan: 64-year-old female PMHx chronic hypercapnic respiratory failure, asthma, COPD, HFpEF, T2DM, and AYAN here due to pneumonia. Patient had a recent admission from 05/23-05/24. She presented to the Ed due to worsening SOB, sputum production and cough for the past 2 days. - Admit to Med/tele due to pneumonia in the setting of recent hospital admission and COPD exacerbation - Chest XRay: Hazy opacities in both lower lung zones (new finding in the right, stable in the left) - Lab remarkable for leukocytosis with left shift. - procal normal - s/p Zosyn, and Azithromycin 500 mg , Methylprednisone - will give one dose of Vancomycin in the setting of recent admission - MRSa nares pending, if negative will d/c - Continue Zosyn and Azithromycin - sputum culture ordered, pending - steroids- she is currently tapering from previous d/c and daily 15 mg, will give IV methylprednisone 40 mg and continue taper - Labs am (2) COPD (chronic obstructive pulmonary disease): Plan: Exacerbated - Secondary to above - No hypoxia on admission - Supplemental O2 as needed - CPAP at night - DuoNeb q4 hrs -Xopenex as needed - continue Budesonide and formoterol - IV antibiotics and steroids as above (3) DM II (diabetes mellitus, type II), controlled: Plan: Continue home Lantus 50 units SQ QAM - Most recent A1C 8.3% (12/2023) - BSG ACHS with SSI - Pharm glycemic consult placed, appreciate input - Adjust regimen as needed - Hgb AM (4) Generalized anxiety disorder: Plan: continue Quetiapine 200 mg and Alprazolam (5) Tobacco use disorder: Plan: current smoker 1.5 pack daily Decline nicotine patch (6) Heart failure with preserved ejection fraction: Plan: Dry on exam today. No vascular congestion on Xray Daily weight and I/Os BNP94 Continue home spironolactone and torsemide (7) History of pulmonary embolism: Plan: continue home lovenox 150 sq daily Plan FEN: DM2, HH Code status: full code DVT ppx: continue Lovenox 150sq daily Dispo: med surge with tele History of Present Illness Primary Care Provider: Radha Barboza Patient is a 64-year-old female PMHx chronic hypercapnic respiratory failure, asthma, COPD, HFpEF, T2DM, and AYAN with multiple recent admission, most recent 05/23-05/22. she presented to the Ed due to worsening SOB, cough and sputum production. She refers chest congestion as well. She called the outpatient Pulmonology which recommended to go to the ED. In the Ed patient was found with pneumonia. On examination patient was on room air, saturating at 94, refers increased SOB. states that had chills but no fever. Veronica been taking her home medications as prescribe. she refers not compliant to CPAP at night due to panic attacks. Uses her supplemental O2 as needed, baseline 3 L. Denied any chest pain, palpations, abdominal pain, nausea, vomiting or diarrhea. No runny nose. Ed course: CXR with finsingds of pneumonia. Labs remarkable for leukocytosis. Procal normal. Received Methylprednisone, Zosyn, DuoNeb neb, Azithromycin and lorazepam. Allergies Allergy/AdvReac Type Severity Reaction Status Date / Time codeine Allergy Severe Anaphylaxis Verified 05/22/24 18:54 Iodinated Contrast Media Allergy Severe Anaphylaxis Verified 05/22/24 18:54 shellfish derived Allergy Severe Anaphylaxis Verified 05/22/24 18:54 tramadol Allergy Intermediate ITCHINESS Verified 05/22/24 18:54 pollen extracts Allergy Mild Congested Verified 05/22/24 18:55 iohexol Allergy Unknown CAN'T Verified 05/22/24 18:54 REMEMBER diphenhydramine AdvReac Severe Anxiety Verified 05/22/24 18:54 [From Benadryl] promethazine AdvReac Intermediate Anxiety Verified 05/22/24 18:54 Home Medications Medication Instructions Recorded Confirmed Type levalbuterol HCl 1.25 mg/3 mL 1.25 mg inhalation Q8H PRN 01/16/23 06/02/24 History solution for nebulization Shortness Of Breath Or Wheezing fluticasone propionate 50 1 spray intranasal BID nasal 09/15/23 06/02/24 Rx mcg/actuation nasal congestion #0 mL spray,suspension (Flonase Allergy Relief) ipratropium bromide 0.02 % 3 ml continuous nebulization QID 10/17/23 06/02/24 Rx solution for inhalation PRN shortness of breath #75 mL calcium polycarbophil 625 mg 625 mg PO QAM #30 tabs 10/30/23 06/02/24 Rx tablet (Fiber (calcium polycarbophil)) insulin aspart U-100 100 unit/mL 10 unit subcut TIDM 11/07/23 06/02/24 History (3 mL) subcutaneous pen (Novolog FlexPen U-100 Insulin aspart) ascorbic acid (vitamin C) 500 mg 1,000 mg (2 x 500 mg) PO DAILY #60 01/02/24 06/02/24 Rx tablet (Vitamin C) tabs alprazolam 0.5 mg tablet 0.5 mg PO BID PRN ANXIETY 02/28/24 06/02/24 History insulin glargine 100 unit/mL (3 50 unit subcut QAM 02/28/24 06/02/24 History mL) subcutaneous pen (Lantus Solostar U-100 Insulin) ondansetron 4 mg disintegrating 4 mg PO Q8 PRN NAUSEA/VOMITING 02/28/24 06/02/24 History tablet colchicine 0.6 mg capsule 0.6 mg PO DAILY PRN joint pain #30 03/01/24 06/02/24 Rx caps allopurinol 300 mg tablet 300 mg PO DAILY 03/23/24 06/02/24 History levalbuterol tartrate 45 2 puff inhalation Q6H PRN WHEEZE 03/23/24 06/02/24 History mcg/actuation aerosol inhaler quetiapine 100 mg tablet 100 mg PO HS 03/23/24 06/02/24 History silver sulfadiazine 1 % topical 1 applic topical BID 03/23/24 06/02/24 History cream potassium chloride 20 mEq 40 meq (2 x 20 mEq) PO DAILY #0 03/28/24 06/02/24 Rx tablet,extended tabs release(part/cryst) (Klor-Con M) citalopram 20 mg tablet 20 mg PO HS 04/21/24 06/02/24 History spironolactone 50 mg tablet 50 mg PO QAM 04/21/24 06/02/24 History guaifenesin 600 mg tablet, 600 mg PO Q12 #14 tabs 04/26/24 06/02/24 Rx extended release 12 hr (Mucinex) torsemide 100 mg tablet 100 mg PO QAM #30 tabs 04/26/24 06/02/24 Rx fluticasone fur. 200 mcg-umeclid 1 ea inhalation QAM #60 ea 05/19/24 06/02/24 Rx 62.5 mcg-vilant 25 mcg inhalat.powder (Trelegy Ellipta) nystatin 100,000 unit/mL oral 10 ml PO BID #250 mL 05/23/24 06/02/24 Rx suspension prednisone 10 mg tablet See Taper PO DIRECTED #24 tabs 05/23/24 06/02/24 Rx budesonide 0.25 mg/2 mL suspension 0.25 mg (2 mL) inhalation BID #60 05/24/24 06/02/24 Rx for nebulization mL prednisone 5 mg tablet 15 mg (3 x 5 mg) PO DAILY 90 days 05/24/24 06/02/24 Rx #270 tabs albuterol sulfate 90 mcg/actuation 2 puff inhalation Q4H PRN 06/02/24 06/02/24 Rx aerosol inhaler Shortness Of Breath Or Wheezing #8.5 grams dupilumab 300 mg/2 mL subcutaneous 300 mg (2 mL) subcut .every other 06/02/24 06/02/24 Rx pen injector (Dupixent) week #4 mL dupilumab 300 mg/2 mL subcutaneous 600 mg (4 mL) subcut ONCE #4 mL 06/02/24 06/02/24 Rx pen injector (Dupixent) Past Med/Surg History Problem List Pneumonia (Acute) Pneumonia Hyperglycemia due to diabetes mellitus (Acute) Chronic hypercapnic respiratory failure Bone marrow transplant status Bronchiectasis Allergic asthma Lower extremity edema Generalized anxiety disorder DM II (diabetes mellitus, type II), controlled COPD (chronic obstructive pulmonary disease) COPD exacerbation (Acute) Dyspnea D-dimer, elevated (Acute) Palpitations (Acute) Chest pain (Acute) Bilateral knee pain CHF exacerbation (Acute) COPD exacerbation (Acute) Chest pain Right knee pain Acute exacerbation of chronic obstructive pulmonary disease (Acute) Leukocytosis (Acute) Acute hypokalemia (Acute) Diabetes Hypokalemia Tobacco abuse counseling Moderate persistent asthma Constipation Acute bronchitis Pulmonary vascular congestion Medical History Anxiety Thrush of mouth and esophagus Heart failure with preserved ejection fraction Elevated brain natriuretic peptide (BNP) level Acute dyspnea Acute hypoxic respiratory failure Elevated troponin COVID-19 Normocytic hypochromic anemia Failure of outpatient treatment Bilateral edema of lower extremity Gout Tobacco use disorder Hematochezia History of pulmonary embolism Michela esophagitis Acute and chronic respiratory failure with hypoxia Chronic anticoagulation Obesity hypoventilation syndrome Multiple myeloma Last chemotherapy 2017 Follows with medical oncology in [facility] History of pulmonary embolism Acute exacerbation of chronic obstructive pulmonary disease Acute heart failure with preserved ejection fraction (HFpEF) Acute exacerbation of chronic obstructive pulmonary disease Tobacco abuse Opiate dependence Asthma Surgical History No pertinent past surgical history Family History Sister Asthma Social History Smoking Status: Current every day smoker Tobacco Type: Cigarettes Age Started Using Tobacco: 15; Cigarettes Per Day: 1-3; Second Hand Exposure: Yes; Do You Dip or Chew Tobacco: No; Hx Alcohol Use: No Hx Substance Use: No Preferred Language: Micronesian Communication Ability: Effective [employer]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 Beliefs That Will Affect Care: None Current Living Situation: Family Current Living Situation Comment: Lives with sister Other Information That Helps Us Care for You: No Feels Safe at Home: Yes Safety Concerns: Feels Safe At This Time Assistive Devices: CPAP Review of Systems Review of Systems: as per HPI Physical Exam Constitutional: + obese; no acute distress and not ill a ppearing Eyes: PERRL, conjunctivae normal, anicteric sclerae Respiratory: + labored breathing and + cough; no resp iratory distress Auscultation: + wheezes Cardiovascular: RRR, no murmur, no edema Gastrointestinal (Abdomen): normal bowel sounds, soft, nontender, no hepatosplenomegaly Skin: no rashes, warm and dry Psychiatric: A+Ox3, euthymic affect Results & Data Results & Data Vital Signs (Past 12 Hours) Vital Signs Temp Pulse Pulse Resp BP BP Pulse Ox 06/02/24 20:27 93 H 06/02/24 19:51 06/02/24 19:50 93 H 19 146/87 H 90 06/02/24 19:09 94 H 18 157/105 H 96 06/02/24 17:11 36.0 C L 99 H 18 146/88 H 92 O2 Del Method 06/02/24 20:27 06/02/24 19:51 Room Air 06/02/24 19:50 Room Air 06/02/24 19:09 Room Air 06/02/24 17:11 Room Air Laboratory Results Laboratory Results WBC 19.01 K/ul (4.8-10.8) H 06/02/24 17:29 RBC 5.28 M/uL (4.20-5.40) 06/02/24 17:29 Hgb 12.8 g/dl (12.0-16.0) 06/02/24 17:29 Hct 42.6 % (37.0-47.0) 06/02/24 17:29 MCV 80.7 fL (80.0-100.0) 06/02/24 17:29 MCH 24.2 pg (25.0-34.0) L 06/02/24 17:29 MCHC 30.0 g/dL (32.0-36.0) L 06/02/24 17:29 RDW Std Deviation 61.2 fL (36.4-46.3) H 06/02/24 17:29 RDW Coeff of Malick 21.9 % (11.5-14.5) H 06/02/24 17:29 Plt Count 349 K/uL (130-400) 06/02/24 17:29 MPV 9.5 fL (9.4-12.4) 06/02/24 17:29 Immature Gran % (Auto) 2.5 % 06/02/24 17:29 Neut % (Auto) 86.3 % 06/02/24 17:29 Lymph % (Auto) 8.4 % 06/02/24 17:29 [place] % (Auto) 2.4 % 06/02/24 17:29 Eos % (Auto) 0.1 % 06/02/24 17:29 Baso % (Auto) 0.3 % 06/02/24 17:29 Neut # (Auto) 16.44 K/uL (1.40-6.50) H 06/02/24 17:29 Lymph # (Auto) 1.59 K/uL (1.20-3.40) 06/02/24 17:29 [place] # (Auto) 0.45 K/uL (0.11-0.59) 06/02/24 17:29 Eos # (Auto) 0.01 K/uL (0.00-0.50) 06/02/24 17: Baso # (Auto) 0.05 K/uL (0.00-0.20) 06/02/24 17: Immature Gran # (Auto) 0.47 K/uL (0.01-0.20) H 06/02/24 17: Absolute Nucleated RBC 0.02 K/uL (0.00-0.12) 06/02/24 17: Nucleated RBC % (auto) 0.1 % 06/02/24 17: Anisocytosis Present 06/02/24 17: Stomatocytes 1+ 06/02/24: PT 10.3 Seconds (9.0-12.0) 06/02/24: INR 0.9 (0.9-1.1) 06/02/24: APTT 22 Seconds (21-31) 06/02/24: PTT Ratio 0.8 06/02/24 17: VBG pH 7.39 (7.36-7.41) 06/02/24 18:40 VBG pCO2 68 mmHg (38-50) H 06/02/24 18:40 VBG pO2 24 mmHg 06/02/24 18:40 VBG HCO3 41 mmol/L 06/02/24 18:40 VBG O2 Saturation < 60.0 % 06/02/24 18:40 VBG Base Excess 13.1 mEq/L 06/02/24 18:40 Sodium 138 mmol/L (136-145) 06/02/24 17: Potassium 4.2 mmol/L (3.5-5.1) 06/02/24 18:26 Chloride 93 mmol/L (98-107) L 06/02/24 17: Carbon Dioxide 39 mmol/L (21-32) H 06/02/24 17: Anion Gap 6 (3-11) 06/02/24 17:29 BUN 16 mg/dl (6-23) 06/02/24 17: Creatinine 0.90 mg/dl (0.6-1.2) 06/02/24: Est Cr Clr Drug Dosing Not Reportable 06/02/24 17: eGFR 71.83 06/02/24 17:29 BUN/Creatinine Ratio 17.8 (10-20) 06/02/24 17:29 Glucose 261 mg/dl (70-99(Fasting)) H 06/02/24 17:29 POC Glucose 289 mg/dl (70-99) H 06/02/24 23:43 Calcium 9.4 mg/dl (8.6-10.3) 06/02/24 17:29 Total Bilirubin 0.3 mg/dl (0.2-1.0) 06/02/24 17:29 AST 13 U/L (13-39) 06/02/24 18:26 ALT 21 U/L (7-52) 06/02/24 17:29 Alkaline Phosphatase 120 U/L (34-104) H 06/02/24 17:29 Troponin I High Sens 21.4 pg/ml (0-14) H 06/02/24 19:20 B-Natriuretic Peptide 94 pg/ml (0-100) 06/02/24 18:26 Total Protein 7.5 gm/dl (6.0-8.3) 06/02/24 17:29 Albumin 4.3 gm/dl (3.4-5.0) 06/02/24 17:29 Globulin 3.2 gm/dl (2.5-4.0) 06/02/24 17:29 Albumin/Globulin Ratio 1.3 (0.9-2) 06/02/24 17:29 Procalcitonin 0.07 ng/ml (0-0.5) 06/02/24 18:26 Nasal Screen MRSA (PCR) Negative (Negative) 06/02/24 21:28 SARS-CoV-2 (PCR) NEGATIVE (Negative) 06/02/24 17:19 Influenza Type A (PCR) Negative (Neg) 06/02/24 17:19 Influenza Type B (PCR) Negative (Neg) 06/02/24 17:19 RSV (RT-PCR) Negative (Neg) 06/02/24 17:19 Impressions Chest X-Ray 06/02/24 17:14 EXAM: XR chest 1V not portable CLINICAL HISTORY: Chest pain, nonspecific. TECHNIQUE: An X-ray image of the chest is obtained in frontal AP projection. COMPARISON: prior 05/22/2024. FINDINGS: Pulmonary Parenchyma: Hazy opacities in both lower lung zones. No pleural effusion. Heart and Mediastinum: Cardiomegaly. No mediastinal mass. Bony Thorax: Osteopenia Degenerative changes of the scanned spine Suspected expansion of the right side of the 4th rib anteriorly Soft Tissues: Soft tissues overlying the chest wall are unremarkable. IMPRESSION: 1. Hazy opacities in both lower lung zones (new finding in the right, stable in the left), may represent infectious/inflammatory process in the right and subsegmental atelectasis in the left. 2. Cardiomegaly. 3. Suspected expansion of the right side of the 4th rib anteriorly. Electronically signed by Rikki Rincon 06-02-2024 7:58 PM Code Status & VTE Plan VTE Prophylaxis Plan VTE Prophylaxis will be ordered: Yes Supervising Physician Co-Signing Physician Notes Patient seen and examined, chart reviewed, case discussed with Dr. Jun Schulz and I agree with the assessment and plan as above. In brief, patient is a 64yo female with recent hospitalizaion for COPD returning with worsening productive cough with sputum and SOB. On exam she is resting comfortably, NAD No rash MMM, neck supple, PERRL +S1/S2, regular, no m/r/g Diminished breath sounds, some rhonchi, no wheezing Abd soft, NT/ND Labs and images reviewed WBC=19 with neutrophils and bands Assessment/Plan Suspected PNA -follow cultures -Zosyn, Azithromycin, MRSA nares -Continue COPD home agents -Continue therapeutic Lovenox - patient on for history of PE -Remainder as above (2) COPD (chronic obstructive pulmonary disease) COPD type: unspecified COPD Qualified Code(s): J44.9 - Chronic obstructive pulmonary disease, unspecified (6) Heart failure with preserved ejection fraction Heart failure chronicity: chronic Qualified Code(s): I50.32 - Chronic diastolic (congestive) heart failure
[2024-06-02] MEDS ORDERED: VANCOMYCIN CONSULT ACTIVE PRN (21:46)
[2024-06-02] MEDS ORDERED: GLUCAGON FOR INJ 1 MG VIAL SQ PRN (22:09)
[2024-06-02] MEDS ORDERED: CARBOHYDRATES FOR HYPOGLYCEMIA PO PRN (22:09)
[2024-06-02] MEDS ORDERED: ONDANSETRON INJ 2 MG/ML 2 ML VIAL IV PRN (22:09)
[2024-06-02] MEDS ORDERED: ACETAMINOPHEN 325 MG TAB PO PRN (22:09)
[2024-06-02] MEDS ORDERED: DEXTROSE 50% 50 ML SYRINGE IV PRN (22:09)
[2024-06-02] MEDS ORDERED: GLUCOSE 10 TAB/TUBE PO PRN (22:09)
[2024-06-02] MEDS ORDERED: GLUCOSE 40% GEL 15 GM TUBE PO PRN (22:09)
[2024-06-02] MEDS: VANCOMYCIN HCL 2,000 MG in SODIUM CHLORIDE 0.9% 500 ML IV STA (22:40)
[2024-06-02] MEDS: ALBUT/IPRATROP 3MG/0.5MG NEB 3 ML VIAL ONE (22:45)
--- NOTE | 2024-06-02 22:46 | Emergency Department Note ---
History of Present Illness General Chief Complaint: Shortness of Breath/Dyspnea Stated Complaint: REALLY BAD SOB, WHEEZING Time Seen by Provider: 06/02/24 18:00 History of Present Illness Provider Complaint: shortness of breath, cough and "asthma attack" Onset (ago): day(s) (2) Consistency/Duration: + progressively worsening Relieved By: + nothing Exacerbated By: + exertion and + coughing Known history of: COPD Associated symptoms: + wheezing, + sputum production and + chest congestion; no fever or no hemoptysis Treatment prior to arrival: bronchodilator Home Medications Medication Instructions Recorded Confirmed Type levalbuterol HCl 1.25 mg/3 mL 1.25 mg inhalation Q8H PRN 01/16/23 06/02/24 History solution for nebulization Shortness Of Breath Or Wheezing fluticasone propionate 50 1 spray intranasal BID nasal 09/15/23 06/02/24 Rx mcg/actuation nasal congestion #0 mL spray,suspension (Flonase Allergy Relief) ipratropium bromide 0.02 % 3 ml continuous nebulization QID 10/17/23 06/02/24 Rx solution for inhalation PRN shortness of breath #75 mL calcium polycarbophil 625 mg 625 mg PO QAM #30 tabs 10/30/23 06/02/24 Rx tablet (Fiber (calcium polycarbophil)) insulin aspart U-100 100 unit/mL 10 unit subcut TIDM 11/07/23 06/02/24 History (3 mL) subcutaneous pen (Novolog FlexPen U-100 Insulin aspart) ascorbic acid (vitamin C) 500 mg 1,000 mg (2 x 500 mg) PO DAILY #60 01/02/24 06/02/24 Rx tablet (Vitamin C) tabs alprazolam 0.5 mg tablet 0.5 mg PO BID PRN ANXIETY 02/28/24 06/02/24 History insulin glargine 100 unit/mL (3 50 unit subcut QAM 02/28/24 06/02/24 History mL) subcutaneous pen (Lantus Solostar U-100 Insulin) ondansetron 4 mg disintegrating 4 mg PO Q8 PRN NAUSEA/VOMITING 02/28/24 06/02/24 History tablet colchicine 0.6 mg capsule 0.6 mg PO DAILY PRN joint pain #30 03/01/24 06/02/24 Rx caps allopurinol 300 mg tablet 300 mg PO DAILY 03/23/24 06/02/24 History levalbuterol tartrate 45 2 puff inhalation Q6H PRN WHEEZE 03/23/24 06/02/24 History mcg/actuation aerosol inhaler quetiapine 100 mg tablet 100 mg PO HS 03/23/24 06/02/24 History silver sulfadiazine 1 % topical 1 applic topical BID 03/23/24 06/02/24 History cream potassium chloride 20 mEq 40 meq (2 x 20 mEq) PO DAILY #0 03/28/24 06/02/24 Rx tablet,extended tabs release(part/cryst) (Klor-Con M) citalopram 20 mg tablet 20 mg PO HS 04/21/24 06/02/24 History spironolactone 50 mg tablet 50 mg PO QAM 04/21/24 06/02/24 History guaifenesin 600 mg tablet, 600 mg PO Q12 #14 tabs 04/26/24 06/02/24 Rx extended release 12 hr (Mucinex) torsemide 100 mg tablet 100 mg PO QAM #30 tabs 04/26/24 06/02/24 Rx fluticasone fur. 200 mcg-umeclid 1 ea inhalation QAM #60 ea 05/19/24 06/02/24 Rx 62.5 mcg-vilant 25 mcg inhalat.powder (Trelegy Ellipta) nystatin 100,000 unit/mL oral 10 ml PO BID #250 mL 05/23/24 06/02/24 Rx suspension prednisone 10 mg tablet See Taper PO DIRECTED #24 tabs 05/23/24 06/02/24 Rx budesonide 0.25 mg/2 mL suspension 0.25 mg (2 mL) inhalation BID #60 05/24/24 06/02/24 Rx for nebulization mL prednisone 5 mg tablet 15 mg (3 x 5 mg) PO DAILY 90 days 05/24/24 06/02/24 Rx #270 tabs albuterol sulfate 90 mcg/actuation 2 puff inhalation Q4H PRN 06/02/24 06/02/24 Rx aerosol inhaler Shortness Of Breath Or Wheezing #8.5 grams dupilumab 300 mg/2 mL subcutaneous 300 mg (2 mL) subcut .every other 06/02/24 06/02/24 Rx pen injector (Dupixent) week #4 mL dupilumab 300 mg/2 mL subcutaneous 600 mg (4 mL) subcut ONCE #4 mL 06/02/24 06/02/24 Rx pen injector (Dupixent) Allergies Allergy/AdvReac Type Severity Reaction Status Date / Time codeine Allergy Severe Anaphylaxis Verified 05/22/24 18:54 Iodinated Contrast Media Allergy Severe Anaphylaxis Verified 05/22/24 18:54 shellfish derived Allergy Severe Anaphylaxis Verified 05/22/24 18:54 tramadol Allergy Intermediate ITCHINESS Verified 05/22/24 18:54 pollen extracts Allergy Mild Congested Verified 05/22/24 18:55 iohexol Allergy Unknown CAN'T Verified 05/22/24 18:54 REMEMBER diphenhydramine AdvReac Severe Anxiety Verified 05/22/24 18:54 [From Benadryl] promethazine AdvReac Intermediate Anxiety Verified 05/22/24 18:54 Past Med/Surg History Problem List (Updated 06/02/24 @ 22:52 by Bhupinder Allen MD) Pneumonia (Acute) Pneumonia Hyperglycemia due to diabetes mellitus (Acute) Chronic hypercapnic respiratory failure Bone marrow transplant status Bronchiectasis Allergic asthma Lower extremity edema Generalized anxiety disorder DM II (diabetes mellitus, type II), controlled COPD (chronic obstructive pulmonary disease) COPD exacerbation (Acute) Dyspnea D-dimer, elevated (Acute) Palpitations (Acute) Chest pain (Acute) Bilateral knee pain CHF exacerbation (Acute) COPD exacerbation (Acute) Chest pain Right knee pain Acute exacerbation of chronic obstructive pulmonary disease (Acute) Leukocytosis (Acute) Acute hypokalemia (Acute) Diabetes Hypokalemia Tobacco abuse counseling Moderate persistent asthma Constipation Acute bronchitis Pulmonary vascular congestion Medical History Anxiety Thrush of mouth and esophagus Heart failure with preserved ejection fraction Elevated brain natriuretic peptide (BNP) level Acute dyspnea Acute hypoxic respiratory failure Elevated troponin COVID-19 Normocytic hypochromic anemia Failure of outpatient treatment Bilateral edema of lower extremity Gout Tobacco use disorder Hematochezia History of pulmonary embolism Michela esophagitis Acute and chronic respiratory failure with hypoxia Chronic anticoagulation Obesity hypoventilation syndrome Multiple myeloma Last chemotherapy 2017 Follows with medical oncology in [facility] History of pulmonary embolism Acute exacerbation of chronic obstructive pulmonary disease Acute heart failure with preserved ejection fraction (HFpEF) Acute exacerbation of chronic obstructive pulmonary disease Tobacco abuse Opiate dependence Asthma Surgical History No pertinent past surgical history Family History Sister Asthma Social History Smoking Status: Current every day smoker Tobacco Type: Cigarettes Age Started Using Tobacco: 15; Cigarettes Per Day: 1-3; Second Hand Exposure: Yes; Do You Dip or Chew Tobacco: No; Hx Alcohol Use: No Hx Substance Use: No Preferred Language: Mongolian Communication Ability: Effective Microfilmer Required: No Beliefs That Will Affect Care: None Current Living Situation: Family Current Living Situation Comment: Lives with sister Feels Safe at Home: Yes Assistive Devices: BiPap and Oxygen - at Night Physical Exam 2 Vital Signs: Vital Signs - 24 hr 06/02/24 17:11 06/02/24 19:09 06/02/24 19:50 Temperature 36.0 C L Temperature Source Temporal Artery Sc an Pulse Rate 99 H Pulse Rate [Apical ] 94 H 93 H Pulse Rhythm [Apic al] Regular Regular Pulse Strength [Ap ical] Normal Normal Respiratory Rate 18 18 19 Respiratory Effort / Characteristics Non-Labored Sponta neous Non-Labored Sponta neous Respiratory Depth Normal Normal Respiratory Patter n Regular Regular Blood Pressure 146/88 H Blood Pressure [Ri ght Arm] 157/105 H 146/87 H Blood Pressure Viktoria n 107 Blood Pressure Viktoria n [Right Arm] 122 106 Blood Pressure Pos ition [Right Arm] Sitting Sitting Pulse Oximetry 92 96 90 Oxygen Delivery Me thod Room Air Room Air Room Air Sepsis Recent Feve r Within 48 Hours No Sepsis New/Unexpla ined Change in Men robyn Status N/A Sepsis Action Take n by Nursing No Action Required 06/02/24 19:51 06/02/24 20:27 Temperature Temperature Source Pulse Rate 93 H Pulse Rate [Apical ] Pulse Rhythm [Apic al] Pulse Strength [Ap ical] Respiratory Rate Respiratory Effort / Characteristics Respiratory Depth Respiratory Patter n Blood Pressure Blood Pressure [Ri ght Arm] Blood Pressure Viktoria n Blood Pressure Viktoria n [Right Arm] Blood Pressure Pos ition [Right Arm] Pulse Oximetry Oxygen Delivery Me thod Room Air Sepsis Recent Feve r Within 48 Hours Sepsis New/Unexpla ined Change in Men robyn Status Sepsis Action Take n by Nursing Physical Exam: Physical Exam HENT: Exam performed. -Head: Normocephalic and atraumatic. -Right Ear: External ear normal. No mastoid erythema -Left Ear: External ear normal. No mastoid erythema -Mouth/Throat: The oropharynx is clear and moist. No trismus in the jaw. No dental abscesses or uvula swelling. No oropharyngeal exudate or tonsillar abscesses. No evidence of soot in her oropharynx. EYES: Conjunctivae and EOM are normal. Right eye exhibits no discharge. Left eye exhibits no discharge. No scleral icterus. NECK: Normal range of motion. Neck supple. No JVD present. CV: Normal rate, regular rhythm, normal heart sounds and intact distal pulses. There is no peripheral edema. Palpable radial pulses bue. PULM/CHEST: Expiratory wheezes bilaterally. NEURO: Motor and sensation grossly intact. Course Course 1800: The patient was evaluated in room B3. A complete history and physical exam was performed Cardiac monitoring: An order was placed for continuous cardiac monitoring. The monitor shows a rate of 100 with sinus rhythm interpreted by ak 2035: Vital signs stable. Patient still having expiratory wheezes and difficulty breathing. Imaging shows new pneumonia. Labs show white blood cell count of 19, most likely elevated secondary to the patient's recurrent steroid usage. VBG shows venous pH is 7.39 with venous pCO2 of 68. High sensitive troponin 20.6. Patient treated with Rocephin and azithromycin. Patient will be admitted to the [facility] team. Administered Medications Vancomycin HCl 2,000 mg/ (Sodium Chloride) 540 mls @ 200 mls/hr IV NOW STA Stop: 06/03/24 00:35 Last Admin: 06/02/24 22:40 Dose: 200 mls/hr Documented By: JENNI Discontinued Medications Albuterol (Albut/Ipratrop 3mg/0.5mg Neb 3 Ml Vial) 3 ml NEB NOW STA; Protocol Stop: 06/02/24 18:32 Last Admin: 06/02/24 18:41 Dose: 3 ml Documented By: FREYA Albuterol (Albut/Ipratrop 3mg/0.5mg Neb 3 Ml Vial) 3 ml NEB NOW STA; Protocol Stop: 06/02/24 18:52 Last Admin: 06/02/24 19:04 Dose: 3 ml Documented By: FREYA Azithromycin (Azithromycin 250 Mg Tab) 500 mg PO NOW ONE Stop: 06/02/24 18:33 Last Admin: 06/02/24 18:41 Dose: 500 mg Documented By: FREYA Piperacillin Sod/Tazobactam Sod (Zosyn) 4.5 gm in 120 mls @ 240 mls/hr IV NOW ONE Stop: 06/02/24 21:05 Last Infusion: 06/02/24 21:20 Dose: Infused Documented By: Admin: 06/02/24 20:46 Dose: 240 mls/hr Documented By: JENNI Lorazepam (Lorazepam 1 Mg/1 Ml Syr Ed Inj Use) 0.5 mg IV ONE STA Stop: 06/02/24 18:32 Last Admin: 06/02/24 18:41 Dose: 0.5 mg Documented By: FREYA Methylprednisolone (Methylprednisolone 125 Mg/2 Ml Vial) 125 mg IV NOW STA Stop: 06/02/24 18:32 Last Admin: 06/02/24 18:41 Dose: 125 mg Documented By: FREYA Medical Decision Making Laboratory Data Attestation: I reviewed the patient's lab results. 06/02/24 17:29 06/02/24 18:26 Lab Results 06/02/24 06/02/24 06/02/24 Range/Units 17:19 17:29 18:26 WBC 19.01 H (4.8-10.8) K/ul RBC 5.28 (4.20-5.40) M/uL Hgb 12.8 (12.0-16.0) g/dl Hct 42.6 (37.0-47.0) % MCV 80.7 (80.0-100.0) fL MCH 24.2 L (25.0-34.0) pg MCHC 30.0 L (32.0-36.0) g/dL RDW Std Deviation 61.2 H (36.4-46.3) fL RDW Coeff of Malick 21.9 H (11.5-14.5) % Plt Count 349 (130-400) K/uL MPV 9.5 (9.4-12.4) fL Immature Gran % (Auto) 2.5 % Neut % (Auto) 86.3 % Lymph % (Auto) 8.4 % [place]ult[place] % (Auto) 2.4 % Eos % (Auto) 0.1 % Baso % (Auto) 0.3 % Neut # (Auto) 16.44 H (1.40-6.50) K/uL Lymph # (Auto) 1.59 (1.20-3.40) K/uL [place]ult[place] # (Auto) 0.45 (0.11-0.59) K/uL Eos # (Auto) 0.01 (0.00-0.50) K/uL Baso # (Auto) 0.05 (0.00-0.20) K/uL Immature Gran # (Auto) 0.47 H (0.01-0.20) K/uL Absolute Nucleated RBC 0.02 (0.00-0.12) K/uL Nucleated RBC % (auto) 0.1 % Anisocytosis Present Stomatocytes 1+ PT 10.3 (9.0-12.0) Seconds INR 0.9 (0.9-1.1) APTT 22 (21-31) Seconds PTT Ratio 0.8 VBG pH (7.36-7.41) VBG pCO2 (38-50) mmHg VBG pO2 mmHg VBG HCO3 mmol/L VBG O2 Saturation % VBG Base Excess mEq/L Sodium 138 (136-145) mmol/L Potassium TNP 4.2 Chloride 93 L (98-107) mmol/L Carbon Dioxide 39 H (21-32) mmol/L Anion Gap 6 (3-11) BUN 16 (6-23) mg/dl Creatinine 0.90 (0.6-1.2) mg/dl Est Cr Clr Drug Dosing Not Reportable eGFR 71.83 BUN/Creatinine Ratio 17.8 (10-20) Glucose 261 H (70-99(Fasting)) mg/dl Calcium 9.4 (8.6-10.3) mg/dl Total Bilirubin 0.3 (0.2-1.0) mg/dl AST TNP 13 ALT 21 (7-52) U/L Alkaline Phosphatase 120 H (34-104) U/L Troponin I High Sens 20.6 H Cancelled (0-14) pg/ml B-Natriuretic Peptide 94 (0-100) pg/ml Total Protein 7.5 (6.0-8.3) gm/dl Albumin 4.3 (3.4-5.0) gm/dl Globulin 3.2 (2.5-4.0) gm/dl Albumin/Globulin Ratio 1.3 (0.9-2) Procalcitonin 0.07 (0-0.5) ng/ml SARS-CoV-2 (PCR) NEGATIVE (Negative) Influenza Type A (PCR) Negative (Neg) Influenza Type B (PCR) Negative (Neg) RSV (RT-PCR) Negative (Neg) 06/02/24 06/02/24 Range/Units 18:40 19:20 WBC (4.8-10.8) K/ul RBC (4.20-5.40) M/uL Hgb (12.0-16.0) g/dl Hct (37.0-47.0) % MCV (80.0-100.0) fL MCH (25.0-34.0) pg MCHC (32.0-36.0) g/dL RDW Std Deviation (36.4-46.3) fL RDW Coeff of Malick (11.5-14.5) % Plt Count (130-400) K/uL MPV (9.4-12.4) fL Immature Gran % (Auto) % Neut % (Auto) % Lymph % (Auto) % Fult[place] % (Auto) % Eos % (Auto) % Baso % (Auto) % Neut # (Auto) (1.40-6.50) K/uL Lymph # (Auto) (1.20-3.40) K/uL [place]ult[place] # (Auto) (0.11-0.59) K/uL Eos # (Auto) (0.00-0.50) K/uL Baso # (Auto) (0.00-0.20) K/uL Immature Gran # (Auto) (0.01-0.20) K/uL Absolute Nucleated RBC (0.00-0.12) K/uL Nucleated RBC % (auto) % Anisocytosis Stomatocytes PT (9.0-12.0) Seconds INR (0.9-1.1) APTT (21-31) Seconds PTT Ratio VBG pH 7.39 (7.36-7.41) VBG pCO2 68 H (38-50) mmHg VBG pO2 24 mmHg VBG HCO3 41 mmol/L VBG O2 Saturation < 60.0 % VBG Base Excess 13.1 mEq/L Sodium (136-145) mmol/L Potassium Chloride (98-107) mmol/L Carbon Dioxide (21-32) mmol/L Anion Gap (3-11) BUN (6-23) mg/dl Creatinine (0.6-1.2) mg/dl Est Cr Clr Drug Dosing eGFR BUN/Creatinine Ratio (10-20) Glucose (70-99(Fasting)) mg/dl Calcium (8.6-10.3) mg/dl Total Bilirubin (0.2-1.0) mg/dl AST ALT (7-52) U/L Alkaline Phosphatase (34-104) U/L Troponin I High Sens 21.4 H (0-14) pg/ml B-Natriuretic Peptide (0-100) pg/ml Total Protein (6.0-8.3) gm/dl Albumin (3.4-5.0) gm/dl Globulin (2.5-4.0) gm/dl Albumin/Globulin Ratio (0.9-2) Procalcitonin (0-0.5) ng/ml SARS-CoV-2 (PCR) (Negative) Influenza Type A (PCR) (Neg) Influenza Type B (PCR) (Neg) RSV (RT-PCR) (Neg) Imaging Data Attestation: I personally reviewed and interpreted this imaging study as follows: My Impression: Chest x-ray: Right-sided infiltrate Radiologist's Impression: Chest X-Ray 06/02/24 17:14 EXAM: XR chest 1V not portable CLINICAL HISTORY: Chest pain, nonspecific. TECHNIQUE: An X-ray image of the chest is obtained in frontal AP projection. COMPARISON: prior 05/22/2024. FINDINGS: Pulmonary Parenchyma: Hazy opacities in both lower lung zones. No pleural effusion. Heart and Mediastinum: Cardiomegaly. No mediastinal mass. Bony Thorax: Osteopenia Degenerative changes of the scanned spine Suspected expansion of the right side of the 4th rib anteriorly Soft Tissues: Soft tissues overlying the chest wall are unremarkable. IMPRESSION: 1. Hazy opacities in both lower lung zones (new finding in the right, stable in the left), may represent infectious/inflammatory process in the right and subsegmental atelectasis in the left. 2. Cardiomegaly. 3. Suspected expansion of the right side of the 4th rib anteriorly. Electronically signed by Rikki Rincon 06-02-2024 7:58 PM ECG Data Attestation: I personally reviewed and interpreted this ECG as follows: Interpretation: Sinus rhythm with a rate of 99. IL 146 QRS [address] elevation or ST depression MDM Narrative 1800: The patient was evaluated in room B3. A complete history and physical exam was performed Cardiac monitoring: An order was placed for continuous cardiac monitoring. The monitor shows a rate of 100 with sinus rhythm interpreted by me 2034: Vital signs stable. Patient still having expiratory wheezes and difficulty breathing. Imaging shows new pneumonia. Labs show white blood cell count of 19, most likely elevated secondary to the patient's recurrent steroid usage. VBG shows venous pH is 7.39 with venous pCO2 of 68. High sensitive troponin 20.6. Patient treated with Rocephin and azithromycin. Patient will be admitted to the [facility] team. Impression & Plan Pneumonia, COPD exacerbation Discharge Plan Visit Data Chief Complaint: Shortness of Breath/Dyspnea Stated Complaint: REALLY BAD SOB, WHEEZING ED Provider: Bhupinder Allen Discharge Problem: Pneumonia, COPD exacerbation Patient Disposition: Admitted As Inpatient Discharge Instructions Interventions: ED Discharge Assessment Last Done: 06/02/24 22:10 Discharge Problem: Pneumonia Qualifiers: Pneumonia type: due to unspecified organism Laterality: right Lung location: l ower lobe of lung Qualified Code(s): J18.9 - Pneumonia, unspecified organism
[2024-06-02] MEDS: ALBUT/IPRATROP 3MG/0.5MG NEB 3 ML VIAL NEB SCH (23:23)
[2024-06-02] MEDS ORDERED: ENOXAPARIN INJ 40 MG/0.4 ML SYR SQ SCH (23:30)
[2024-06-02] MEDS: ENOXAPARIN INJ 40 MG/0.4 ML SYR SQ SCH (23:40)
[2024-06-02] MEDS: ENOXAPARIN 150 MG/ML SYR SQ SCH (23:49)
[2024-06-02] MEDS: INSULIN ASPART PER UNIT CHARGE SC SCH (23:49)
[2024-06-03] MEDS: QUEtiapine FUMARATE 100 MG TABLET PO SCH (01:15)
[2024-06-03] MEDS: CITALOPRAM 20 MG TAB PO SCH (01:15)
[2024-06-03] MEDS: PIPERACILLIN/TAZOBACTAM 4.5 GM/100 ML BAG IV SCH (01:16)
--- NOTE | 2024-06-03 01:42 | Billing Data ---
Date of Service June 02, 2024 Coding Level of Care Code 36859 INT INP/OBS CARE
[2024-06-03] MEDS: INSULIN ASPART PER UNIT CHARGE SC SCH (04:02)
[2024-06-03 04:28] LABS: Basophils # (auto) 0.03 K/uL (0.00-0.20); Basophils % (auto) 0.2 %; Immature Granulocytes # (auto) 0.42 K/uL (0.01-0.20); Immature Granulocytes % (auto) 2.4 %; Lymphocytes # (auto) 1.19 K/uL (1.20-3.40); Lymphocytes % (auto) 6.7 %; Mean Corpuscular Hemoglobin 24.2 pg (25.0-34.0); Mean Corpuscular Volume 80.8 fL (80.0-100.0); Mean Platelet Volume 9.7 fL (9.4-12.4); Monocytes # (auto) 0.15 K/uL (0.11-0.59); Monocytes % (auto) 0.8 %; Neutrophils # (auto) 15.94 K/uL (1.40-6.50); Neutrophils % (auto) 89.9 %; Platelet Count 322 K/uL (130-400); RDW Coefficient of Variation 21.8 % (11.5-14.5); RDW Standard Deviation 61.7 fL (36.4-46.3); Red Blood Count 4.95 M/uL (4.20-5.40); White Blood Count 17.73 K/ul (4.8-10.8)
[2024-06-03 04:43] LABS: Albumin Globulin Ratio 1.4 (0.9-2); Albumin Level 3.6 gm/dl (3.4-5.0); BUN Creatinine Ratio 21.3 (10-20); Bilirubin,Total 0.3 mg/dl (0.2-1.0); Calcium 9.1 mg/dl (8.6-10.3); Creatinine Clr Calc Pharmacy 76.5 ml/min; Globulin 2.6 gm/dl (2.5-4.0); Magnesium 2.1 mg/dl (1.7-2.4); Potassium 4.7 mmol/L (3.5-5.1); Total Protein 6.2 gm/dl (6.0-8.3)
[2024-06-03 04:45] LABS: Anisocytosis Present; Ovalocytes 1+; Stomatocytes 1+
[2024-06-03] MEDS: BUDESONIDE 0.25 MG/2 ML VIAL (PULMICORT) INH SCH (07:02)
[2024-06-03] MEDS: ALPRAZolam 0.5 MG TABLET PO PRN ×2 (07:52→20:28)
[2024-06-03] MEDS: LANTUS PER UNIT CHARGE SQ SCH ×2 (08:42→21:14)
[2024-06-03] MEDS: AZITHROMYCIN 250 MG TAB PO SCH (08:44)
[2024-06-03] MEDS: TORSEMIDE 100 MG TAB PO SCH (08:44)
[2024-06-03] MEDS: BUPRENORPHINE/NALOXONE 8/2 MG TAB SL SCH (08:44)
[2024-06-03] MEDS: guaiFENesin 600 MG TABCR PO SCH (08:44)
[2024-06-03] MEDS: FLUTICASONE FUROATE 200MCG 14 PUFFS/INHALER INH SCH (08:45)
[2024-06-03] MEDS: UMECLIDINIUM/VILANTEROL 62.5/25MCG 7 PUFFS/INHALER INH SCH (08:46)
[2024-06-03] MEDS: methylPREDNISolone 60 MG in SYRINGE 0 ML IV SCH (08:46)
[2024-06-03] MEDS: NYSTATIN SUSP 500,000 U/5 ML UDC PO SCH (08:48)
--- NOTE | 2024-06-03 08:59 | Electrocardiogram Report ---
Test Reason : Blood Pressure : */* mmHG Vent. 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
[2024-06-03] MEDS ORDERED: NON-FORMULARY MEDICATION (Fluticasone-Umeclidin-Vilanter [Trelegy Ellipta] 200-62.5-25 mcg INH SCH (09:00)
[2024-06-03] MEDS ORDERED: methylPREDNISolone 125 MG/2 ML VIAL IV SCH (09:00)
[2024-06-03] MEDS ORDERED: BUPRENORPHINE/NALOXONE 8/2 MG TAB SL SCH (09:00)
--- NOTE | 2024-06-03 09:15 | Hospitalist Progress Note ---
Date of Service June 03, 2024 Assessment & Plan (1) Pneumonia: Plan: 64-year-old female PMHx chronic hypercapnic respiratory failure, asthma, COPD, HFpEF, T2DM, and AYAN here due to pneumonia. Patient had a recent admission from 05/23-05/24. Presented to ER for increased/worsening SOB, sputum production and cough x 2 days CXR noting hazy opacities in b/l lower lungs, new in right/stable on left Procal wnl. Flu/RSV/Covid negative IV abx: Zosyn, Azithromycin IV continued Solu-medrol 40mg IV once daily, tapering outpt at 15mg and will need to taper again at dc. Rec for f/u discussion on Dupixent as rec'd by pulm in recent follow up Breathing treatments DuoNeb q4h changed to Xopenex BID given HR, duonebs changed to prn if needed. Continues on budesonide/hospital equivalents to her MDIs Pulmonary toilet: added IS, flutter valve Sputum cx ordered, f/u CPAP compliance recommended/encouraged -- pulm note ~37% use. Patient did report had been alarming/needed new mask but did get this past week, RT notified as reports agreeable to wear tonight CO2 elevation on ABG to 68, poor compliance w/ CPAP. CO2 elevation on chemistries as well w/ increased weight gain (weight standing scale 207lb, reports baseline ~202lb) Baseline on torsemide 100mg/spironolactone 50mg daily for hx HFpEF/diastolic HF/cor pulmonale Start diamox 250mg PO BID to assist w/ diuresis w/ CO2 retention Continues on torsemide 100mg, spironolactone 50mg PO daily for hx HFpEF/diastolic HF/cor pulmonale Smoking cessation encouraged, down to 2-3 cigarettes a day Iron studies w/ acceptable iron however low trans % sat at 11, ferritin low at 34.1 and will give dose Venofer IV x 1. MCV borderline @ 80/prior <80. Will check TSH w/ AM labs given anxiety, Xanax TID made scheduled as takes at home B12 borderline 265, PO replacement started. Vit D also low w/ COPD to 9 and PO replacement ordered O2 as needed, currently on RA 91% w/ good wave form Monitor labs/exam in AM PT eval placed while inpatient (2) Heart failure with preserved ejection fraction: Plan: Reported dry on admission, CXR w/o congestion and BNP only 94 but with significant obesity/diastolic failure could be falsely low On exam, significant LE edema bilaterally and weights up w/ prior "good weight" at 202lb by PCP per Janae this past week Baseline on torsemide 100mg daily, spironolactone 50mg --? if on higher doses in past HYPERVOLEMIC on exam 06/03 Weight currently 207lb Continues on torsemide 100mg daily, spironolactone 50mg Given CO2 retention as above, will trial diamox 250mg PO BID and monitor BMP in AM/UOP. CPAP encouraged as above 1800cc/fluid restriction placed, AHA diet. Encouraged low salt diet Monitor weights daily w/ STANDING SCALE WEIGHT (asked nurse to place sign on door), I&Os F/u volume status in AM (3) COPD (chronic obstructive pulmonary disease): Plan: Exacerbation w/ possible PNA as above. Not hypoxic on admission but req O2 following but now back to RA this morning Duonebs vikram changed to xopenex BID, duonebs to prn if needed continue budesonide/formotorol as above, sputum cx if able to obtain and remains on abx as outlined. Continue pulm toilet/O2 as needed CPAP HS ordered/encouraged Diamox/diuretics as above (4) DM II (diabetes mellitus, type II), controlled: Plan: A1c 9.8 in March, likely worse w/ ongoing steroids On lantus 50u at home, on hold/pharmacy consulted for glycemic management and apprecaite assistance Monitor BSGs, DM diet (5) Generalized anxiety disorder: Plan: continue Quetiapine 200 mg and Alprazolam alprazolam changed to scheduled as takes at home, also to assist w/ COPD/anxiety inpatient (6) Tobacco use disorder: Plan: current smoker , 1.5pack day reported by admission team but patient tells me only smoking >1pack when doing meth many years ago, prior addiction to oxycodone Currently reports 2-3 cigarettes/daily, cessation encouraged. declined nicotine patch but can order if needed (7) History of pulmonary embolism: Plan: continue home lovenox 150 sq daily (8) B12 deficiency: (9) Vitamin D deficiency: Plan DVT proph: continues on lovenox sq Dispo: continued inpatient stay, abx/steroids continued. Sputum cx if able to obtain. Diuretics continued/diamox started and monitor response to see if effective could continue at dc CPAP compliance strongly encouraged and rec to consider starting Dupixent in f/u pulm. smoking cessation PT consult placed Admission and Anticipated Discharge Date Admission Date: June 02, 2024 Supervising Physician Co-Signing Physician Notes The patient was not seen by me. The chart was reviewed. Case discussed with YELENA Stroud. Agree with assessment and plan Subjective Eval this afternoon, sitting up in chair. O2 Off, sat 91% at rest w/ good waveform. Reports feeling better, nebs changed to xopenex BID, discussed CPAP -- is agreeable for tonight. Reports had been not compliant at home due to mask/beeping but got new mask delivered this week. Sputum tanish in color, no singificant change from baseline. Reports had been doing well over past couple weeks until recently. Still smokes couple cigarettes daily but has cut back significantly/ Weight ~202lb at PCP, RN to obtain, diamox PO for CO2 retention/diuretics. Discussed Dupixant, she reports brother in law in [place] but to discuss when he returns -- storngly encouraged. Reports has PET scan on the , talked to someone yesterday. Does not like the suboxone and has been trying to wean off but has been resumed once daily as taking at home. Takes xanax 3 times daily at home 6am, 12pm, 6pm. issues in past with prn inpatient and will have give one dose now/make scheduled. Physical Exam 2 Physical Exam: General: 64yo female, chronically ill appearing/older than stated age, sitting up in chair, off O2 and SpO2 91% at rest currently HEENT: head atraumatic, normocephalic, mmm, trachea midline, +JVD Resp: diminished in the bases/poor air entry, expiratory wheezing throughout, occ cough, petit sputum reported, on RA, able to speak in complete sentences CV: RRR, slightly tachy 90-low 100s at times but regular on monitor, +S4 gallop, 2+ bilateral LE pitting edema, chronic venous stasis changes GI +BS, soft/NT ; no barnes Psych: AOx3,cooperative, anxious at times Results & Data Results & Data Vital Signs (Past 12 Hours) Vital Signs Pulse Pulse Resp BP BP Pulse Ox Pulse Ox 06/03/24 07:02 87 20 95 06/03/24 05:15 90 13 96 06/03/24 05:09 92 H 14 97 06/03/24 04:51 90 14 95 06/03/24 04:33 90 13 95 06/03/24 04:21 91 H 13 95 06/03/24 04:18 90 14 96 06/03/24 04:06 91 H 14 95 06/03/24 03:54 94 H 12 95 06/03/24 03:42 93 H 13 95 06/03/24 03:00 99 H 15 96 06/03/24 02:30 100 H 17 97 06/03/24 02:21 103 H 15 94 06/03/24 02:00 99/70 L 06/03/24 02:00 99/70 L 06/03/24 02:00 99/70 L 06/03/24 02:00 98 H 13 96 06/03/24 01:54 97 H 13 95 06/03/24 01:42 94 H 13 95 06/03/24 01:30 99 H 15 94 06/03/24 01:13 141/94 H 06/03/24 01:13 141/94 H 06/03/24 01:13 141/94 H 06/03/24 01:12 94 H 20 94 06/03/24 00:51 93 H 14 93 06/03/24 00:42 92 H 14 93 06/03/24 00:32 06/03/24 00:21 91 H 15 92 06/02/24 23:36 94 06/02/24 22:45 94 H 18 95 06/02/24 22:42 96 H 20 180/106 H 95 06/02/24 21:30 91 H 20 151/110 H 97 O2 Del Method O2 Del Method O2 Flow Rate O2 Flow Rate 06/03/24 07:02 Nasal Cannula 2 06/03/24 05:15 06/03/24 05:09 06/03/24 04:51 06/03/24 04:33 06/03/24 04:21 06/03/24 04:18 06/03/24 04:06 06/03/24 03:54 06/03/24 03:42 06/03/24 03:00 06/03/24 02:30 06/03/24 02:21 06/03/24 02:00 06/03/24 02:00 06/03/24 02:00 06/03/24 02:00 06/03/24 01:54 06/03/24 01:42 06/03/24 01:30 06/03/24 01:13 06/03/24 01:13 06/03/24 01:13 06/03/24 01:12 Nasal Cannula 3 06/03/24 00:51 06/03/24 00:42 06/03/24 00:32 Nasal Cannula 2 06/03/24 00:21 06/02/24 23:36 Nasal Cannula 2 06/02/24 22:45 Nasal Cannula 2 06/02/24 22:42 Nasal Cannula 2 06/02/24 21:30 Nasal Cannula 2 Laboratory Results 06/03/24 03:45 06/03/24 03:45 Diagnostic Findings Chest X-Ray 06/02/24 17:14 EXAM: XR chest 1V not portable CLINICAL HISTORY: Chest pain, nonspecific. TECHNIQUE: An X-ray image of the chest is obtained in frontal AP projection. COMPARISON: prior 05/22/2024. FINDINGS: Pulmonary Parenchyma: Hazy opacities in both lower lung zones. No pleural effusion. Heart and Mediastinum: Cardiomegaly. No mediastinal mass. Bony Thorax: Osteopenia Degenerative changes of the scanned spine Suspected expansion of the right side of the 4th rib anteriorly Soft Tissues: Soft tissues overlying the chest wall are unremarkable. IMPRESSION: 1. Hazy opacities in both lower lung zones (new finding in the right, stable in the left), may represent infectious/inflammatory process in the right and subsegmental atelectasis in the left. 2. Cardiomegaly. 3. Suspected expansion of the right side of the 4th rib anteriorly. Electronically signed by Rikki Rincon 06-02-2024 7:58 PM PG Care Time/CCT Total # of Minutes Spent Total Time Spent with Patient: Total time spent is greater than 50% in coordination of care (as documented) at patient's floor/unit and/or counseling patient: Coding Level of Care Code 94537 SUB INP/OBS CARE 3/50MIN Diagnoses Pneumonia J18.9 Chronic heart failure with preserved ejection fraction I50.32 Heart failure chronicity: chronic COPD (chronic obstructive pulmonary disease) J44.9 COPD type: unspecified COPD DM II (diabetes mellitus, type II), controlled E11.9 Generalized anxiety disorder F41.1 Tobacco use disorder F17.200 History of pulmonary embolism Z86.711 B12 deficiency E53.8 Vitamin D deficiency E55.9 (2) Heart failure with preserved ejection fraction Heart failure chronicity: chronic Qualified Code(s): I50.32 - Chronic diastolic (congestive) heart failure (3) COPD (chronic obstructive pulmonary disease) COPD type: unspecified COPD Qualified Code(s): J44.9 - Chronic obstructive pulmonary disease, unspecified
[2024-06-03 10:59] LABS: Ferritin 34.1 ng/ml (8-388)
[2024-06-03 11:04] LABS: Folate (Folic Acid),Ser orPlas 14.88 ng/ml (>5.38)
[2024-06-03] MEDS: SPIRONOLACTONE 25 MG TAB PO SCH (11:10)
[2024-06-03] MEDS ORDERED: ALBUT/IPRATROP 3MG/0.5MG NEB 3 ML VIAL NEB PRN (11:46)
--- NOTE | 2024-06-03 13:40 | Pharmacy Report ---
Pharmacy Glycemic Short Note 2 - Date of Service June 03, 2024 - Glycemic Short BSG Results (Last 24 hours): 06/02/24 06/02/24 06/03/24 17:29 23:43 03:45 Glucose 261 H 236 H POC Glucose 289 H 06/03/24 06/03/24 06/03/24 08:41 10:35 12:56 Glucose POC Glucose 349 H* 395 H* 163 H OUTPATIENT ANTIDIABETIC REGIMEN: * Lantus 50 units SC qAM * Novolog 10 units SC TIDM HbA1c: 8.3% (01/19/24) ASSESSMENT: * LL is a 64 year old female admitted with COPD exacerbation/pneumonia in context of recent hospitalization (discharged 05/23/24) * Hyperglycemic on presentation and ordered methylprednisolone 60 mg IV daily * Patient is well-known to pharmacy glycemic service due to multiple admissions/consultations * Blood sugar significantly improved at lunchtime (163 mg/dL), will hold off on more aggressive measures at this time PLAN FOR INPATIENT GLYCEMIC CONTROL: * Basal insulin * Lantus 50 units SC daily * Lantus 0-10-20 units SC HS (see EHR for details) * Bolus insulin * NovoLog per scale ACHS or Q6hrs while NPO * Goal Range: Low 120 mg/dL - High 150 mg/dL * Correction Factor: 15 mg/dL/unit * Nutritional / Prandial insulin per carb ratio of 1 unit per 5 grams CHO consumed
[2024-06-03] MEDS: ALPRAZolam 0.5 MG TABLET PO ONE (14:47)
[2024-06-03] MEDS: CHOLECALCIFEROL 25 MCG (1000 UNITS) TAB PO SCH (15:59)
[2024-06-03] MEDS: CYANOCOBALAMIN (B-12) 500 MCG TABLET PO SCH (15:59)
[2024-06-03] MEDS: IRON SUCROSE 300 MG in SODIUM CHLORIDE 0.9% 250 ML IV ONE (17:29)
[2024-06-03] MEDS: acetaZOLAMIDE 250 MG TAB PO SCH (17:30)
[2024-06-03] MEDS: LEVALBUTEROL 1.25 MG/3 ML NEB NEB SCH (19:49)
[2024-06-03] MEDS ORDERED: CITALOPRAM 20 MG TAB PO SCH (21:00)
[2024-06-03] MEDS ORDERED: QUEtiapine FUMARATE 100 MG TABLET PO SCH (21:00)
[2024-06-03] MEDS ORDERED: Nursing to Pharmacy Communication SCH (23:45)
--- NOTE | 2024-06-04 07:41 | Hospitalist Progress Note ---
Date of Service June 04, 2024 Assessment & Plan (1) Pneumonia: (2) Heart failure with preserved ejection fraction: (3) COPD (chronic obstructive pulmonary disease): (4) DM II (diabetes mellitus, type II), controlled: (5) Generalized anxiety disorder: (6) Tobacco use disorder: (7) History of pulmonary embolism: (8) B12 deficiency: (9) Vitamin D deficiency: Plan 64-year-old female PMHx chronic hypercapnic respiratory failure, asthma, COPD, HFpEF, T2DM, and AYAN here due to pneumonia. Patient had a recent admission from 05/23-05/24. Presented to ER for increased/worsening SOB, sputum production and cough x 2 days CXR noting hazy opacities in b/l lower lungs, new in right/stable on left Procal wnl. Flu/RSV/Covid negative #PNA/acute on chronic diastolic CHF/COPD exacerbation Zosyn, Azithromycin [id number]-->60mg IV daily, decreased wheezing on exam. Convert to prednisone 30mg for AM/taper at dc planned. Could also consider 10mg TID to space out pending response Nebs: Xopenex BID to prevent tachycardia, duonebs made prn. Continue budesonide/formoterol, hospital equivalents to her home trelegy WBC elevation suspected 2nd to steroids, afebrile Continue incentive spirometer, flutter valve, mucinex increased to 1200mg BID Sputum cx as able to obtain. CPAP ordered/worn last night Continue torsemide 100mg PO daily Continue added Diamox 250mg PO BID for CO2 retention/diuresis, improved on AM chemistries Spironolactone increased to 50mg BID for volume overload/prevention worsened hypokalemia as had in the past Fluid restriction removed but discussed measuring her fluid intake/volume and STRICT I&Os to assess needs at dc and prevent readmission Monitor daily standing scale weights, volume status in AM. Weight presently 207lb and aiming to get closer to 202lb Highly rec f/u pulm and start Dupixant in follow up. Smoking cessation encouraged Vit D low, PO replacement ordered/encouraged compliance. Also w/ low normal B12/PO replacement stated and would continue both at dc Xanax made scheduled as takes at home O2 as needed to maintain sats, plan 2step prior to dc PT eval pending Labs/exam in AM HFpEF - 2nd to pulm HTN/cor pulmonale suspected and worsened w/ ongoing steroid use. Hypervolemic 2/7 as above and remains elevated weight/edema to legs and wheezing on exam and diuretics adjusted as above and will f/u volume status in am. fluid restriction/low salt diet at [place] encouraged but removed fluid restriction presently and willl assess true intake closer to home as suspect increased fluid intake also playing a role. COPD exacerbation - improving, steroids changed to prednisone PO for am/nebs as outlined and sputum cx if able to obtain. Plan 2step prior to dc as above, diuretics as outlined. DM II A1c 9.8 in March, likely worse w/ ongoing steroids. Lantus 50u at home. Pharmacy consulted for glycemic management, appreciate. Monitor BSGs/adjustment as needed. DM diet Anxiety/Depression continue Quetiapine 200 mg and Alprazolam but made alprazolam 0.5mg TID scheduled as takes at home Tobacco use current smoker , 1.5pack day reported by admission team but patient tells me only smoking >1pack when doing meth many years ago, prior addiction to oxycodone and down to 2-3 a day. Cessation encouraged. Nicotine patch if requested can be ordered Hx PE continue home lovenox 150 sq daily DVT proph: continues on lovenox sq Dispo: continued inpatient stay, steroids converted to prednisone for am. increased spironolactone and continue diamox w/ torsemide use at baseline. Continue CPAP HS/compliance rec'd. PT consult pending Possible dc next 24-48hr pending response/therapy evals Rec f/u pulm at [place] re: Duplixent Admission and Anticipated Discharge Date Admission Date: June 02, 2024 Supervising Physician Co-Signing Physician Notes The patient was not seen by me. The chart was reviewed. Case discussed with YELENA Stroud. Agree with assessment and plan Subjective Eval this afternoon, sitting up in chair. Resting. Off oxygen at present, did wear the CPAP at night last night/encouraged w/ sleeping. Improvement in breathing. Xanax timed but not made scheduled/will change from prn as got late this morning. Less wheezing on exam. Wanting fluid restriction removed -- discussed as long as agreeable to strict I&O and will assess volume/diuretics w/ closer to home intake to monitor volume status. Per nursing, vending machine for chip x 1 noticed last evening. Low salt diet encouraged. Remains inpatient, PT/OT evals ordered. Leg edema about the same, elevation encourage. Physical Exam 2 Physical Exam: General: 64yo female, chronically ill appearing, sitting up in chair, on room air at present Head atraumatic, normocephalic, mmm +JVD Resp: diminished air entry bilaterally with faint exp wheezing bilaterally but improved from day prior, no tachypnea, on room air/CPAP worn overnight tences CV: RRR, 80-90s during exam, +S4, 2+ pitting b/l LE edema, chronic venous stasis changes, flaking of skin. GI +BS, soft/NT ; no barnes Psych: AOx3,cooperative, anxious at times Results & Data Results & Data Vital Signs (Past 12 Hours) Vital Signs Temp Pulse Pulse Pulse Resp BP BP 06/04/24 07:30 36.5 C 59 L 20 170/79 H 06/04/24 07:26 89 18 06/04/24 06:41 91 H 06/04/24 03:32 88 10 L 06/04/24 03:22 36.4 C L 57 L 18 128/59 L 06/04/24 03:00 36.5 C 88 19 152/91 H 06/03/24 23:50 90 17 06/03/24 22:59 100 H 06/03/24 22:35 36.4 C L 99 H 18 117/80 06/03/24 20:00 06/03/24 19:49 105 H 18 Pulse Ox O2 Del Method O2 Flow Rate 06/04/24 07:30 93 CPAP 06/04/24 07:26 98 Room Air 06/04/24 06:41 06/04/24 03:32 94 3 06/04/24 03:22 97 Room Air, Nasal Cannula 3 06/04/24 03:00 94 CPAP 3 06/03/24 23:50 97 06/03/24 22:59 06/03/24 22:35 94 Room Air 06/03/24 20:00 Nasal Cannula 2 06/03/24 19:49 94 Room Air Laboratory Results 06/04/24 09:00 06/04/24 09:00 Mag 2.2 TSH 1.14 PG Care Time/CCT Total # of Minutes Spent Total Time Spent with Patient: Total time spent is greater than 50% in coordination of care (as documented) at patient's floor/unit and/or counseling patient: Coding Level of Care Code 78763 SUB INP/OBS CARE MIN Diagnoses Pneumonia J18.9 Chronic heart failure with preserved ejection fraction I50.32 Heart failure chronicity: chronic COPD (chronic obstructive pulmonary disease) J44.9 COPD type: unspecified COPD DM II (diabetes mellitus, type II), controlled E11.9 Generalized anxiety disorder F41.1 Tobacco use disorder F17.200 History of pulmonary embolism Z86.711 B12 deficiency E53.8 Vitamin D deficiency E55.9 (2) Heart failure with preserved ejection fraction Heart failure chronicity: chronic Qualified Code(s): I50.32 - Chronic diastolic (congestive) heart failure (3) COPD (chronic obstructive pulmonary disease) COPD type: unspecified COPD Qualified Code(s): J44.9 - Chronic obstructive pulmonary disease, unspecified
[2024-06-04 09:35] LABS: Albumin Level 3.7 gm/dl (3.4-5.0); BUN Creatinine Ratio 27.2 (10-20); Bilirubin Direct 0.1 mg/dl (0-0.2); Bilirubin,Total 0.3 mg/dl (0.2-1.0); Calcium 9.1 mg/dl (8.6-10.3); Creatinine Clr Calc Pharmacy 58.6 ml/min; Magnesium 2.2 mg/dl (1.7-2.4); Potassium 3.4 mmol/L (3.5-5.1); Total Protein 6.4 gm/dl (6.0-8.3)
[2024-06-04] MEDS: guaiFENesin 600 MG TABCR PO SCH (09:37)
[2024-06-04 09:42] LABS: Hematocrit (blood only) 40.7 % (37.0-47.0); Hemoglobin 12.1 g/dl (12.0-16.0); Mean Corpuscular Hgb Conc 29.7 g/dL (32.0-36.0); Mean Corpuscular Volume 80.6 fL (80.0-100.0); Mean Platelet Volume 9.4 fL (9.4-12.4); Nucleated RBC # (auto) 0.03 K/uL (0.00-0.12); Nucleated RBC % (auto) 0.2 %; Platelet Count 314 K/uL (130-400); RDW Coefficient of Variation 21.8 % (11.5-14.5); RDW Standard Deviation 61.1 fL (36.4-46.3); Red Blood Count 5.05 M/uL (4.20-5.40)
[2024-06-04 09:49] LABS: Thyroid Stimulating Hormone 1.14 uIu/ml (0.300-4.500)
[2024-06-04] MEDS: POTASSIUM CHLORIDE CRTAB 20 MEQ TABCR PO STA (10:08)
[2024-06-04] MEDS: ALPRAZolam 0.5 MG TABLET PO SCH (12:44)
[2024-06-04] MEDS: IRON SUCROSE 200 MG in SODIUM CHLORIDE 0.9% 100 ML IV ONE (17:42)
[2024-06-04] MEDS: SPIRONOLACTONE 25 MG TAB PO SCH (17:43)
[2024-06-04] MEDS: AMMONIUM LACTATE 12% LOTION 225 GM BTL EXT SCH (21:00)
[2024-06-05 07:43] LABS: Hematocrit (blood only) 40.7 % (37.0-47.0); Hemoglobin 12.1 g/dl (12.0-16.0); Mean Corpuscular Hemoglobin 23.9 pg (25.0-34.0); Mean Corpuscular Hgb Conc 29.7 g/dL (32.0-36.0); Mean Corpuscular Volume 80.3 fL (80.0-100.0); Mean Platelet Volume 9.9 fL (9.4-12.4); Nucleated RBC # (auto) 0.02 K/uL (0.00-0.12); Nucleated RBC % (auto) 0.1 %; Platelet Count 309 K/uL (130-400); RDW Coefficient of Variation 21.7 % (11.5-14.5); RDW Standard Deviation 62.4 fL (36.4-46.3); Red Blood Count 5.07 M/uL (4.20-5.40); White Blood Count 19.21 K/ul (4.8-10.8)
--- NOTE | 2024-06-05 07:47 | Hospitalist Progress Note ---
Date of Service June 05, 2024 Assessment & Plan (1) Pneumonia: Plan: 64-year-old female PMHx chronic hypercapnic respiratory failure, asthma, COPD, HFpEF, T2DM, and AYAN here due to pneumonia. Patient had a recent admission from 05/23-05/24. Presented to ER for increased/worsening SOB, sputum production and cough x 2 days CXR noting hazy opacities in b/l lower lungs, new in right/stable on left Procal wnl. Flu/RSV/Covid negative #PNA/acute on chronic diastolic CHF/COPD exacerbation Zosyn, Azithromycin continued Solu-medrol converted to prednisone 30mg this morning, taper back to prior 15mg as able Xopenex BID, duonebs prn. Continue budesonide/formoterol and hospital equivalent to home inhalers Mucinex increased to 1200mg BID. Continue IS/flutter valve WBC suspected 2nd to steroids but does have underlying MM, pet scan outpatient 06/23 per patient Sputum cx as able to obtain, nonproductive at present but see below regarding acute on chronic HFpEF/cor pulmonale CPAP encouraged, did use last evening Strongly encouraged smoking cessation as well as f/u pulm about Dupixent start Xanax made scheduled as below 97% on RA today, CPAP HS/sleeping encouraged-- used last evening CXR w/ improved aeration to L lung base, mild linear right basilar atelectasis. Conitnue IS as above PT/OT consulted, CM to f/u ?2step prior to dc planned See below regarding acute on chronic diastolic CHF/cor pulmonale (2) Heart failure with preserved ejection fraction: Plan: suspect acute on chronic HFpEF/cor pulmonale from increased fluid intake at baseline, possible noncompliance w/ diuretics/salt as well as CPAP at baseline (prior pulm note CPAP use ~37%). Dry weight closer to 202lb and was 207lb on admission Hypervolemic on exam, LE edema/pulm congestion Torsemide 100mg PO continued Prior diamox 250mg PO BID to assist w/ CO2 retention on blood gas and chemistries -- has normalized Spironolactone 50mg INCREASED to BID on 06/04 as had on fluid restriction but ongoing req to remove and patient likely with increased fluid intake at baseline along with salt and readmissions and revmoed to see acute intake at home and was ~2800cc intake yesterday w/ 500cc this morning and encouraged to limit but will monitor for increased diuretics as weight unchanged at ~207lb likely from increased PO intake I&O -- +850cc on I&Os despite increased spironolactone Additional torsemide 40mg PO x 1 this afternoon with additional PO Kcl and will continue spironolactone increased to 50mg PO BID given hypokalemia issues and will continue diamox PO BID for now CPAP encouraged and will monitor BMP this afternoon/additional electrolyte replacement as needed. Steroids converted to PO prednisone and hopefully will help as well Ganesh turner for LE edema, f/u - encourage use at baseline but difficulty getting on reported by patient Monitor weights, STRICT I&Os and volume status on repeat exam (3) COPD (chronic obstructive pulmonary disease): Plan: improved, suspect 2nd to PNA/possible CHF exacerbation as above. Continue abx/diuretics as above, O2 as needed. Consider 2 step at dc diuretics as outlined. (4) DM II (diabetes mellitus, type II), controlled: Plan: A1c 9.8 in March, likely worse w/ ongoing steroids. Lantus 50u at home. Pharmacy consulted for glycemic management, appreciate. Monitor BSGs/adjustment as needed. DM diet (5) Generalized anxiety disorder: Plan: continue Quetiapine 200 mg and Alprazolam but made alprazolam 0.5mg TID scheduled as takes at home and has been getting. Again, CPAP compliance encouraged/did use last evening (6) Tobacco use disorder: Plan: current smoker , 1.5pack day reported by admission team but patient tells me only smoking >1pack when doing meth many years ago, prior addiction to oxycodone and down to 2-3 a day. Cessation encouraged. Nicotine patch if requested (7) History of pulmonary embolism: Plan: continue home lovenox 150 sq daily (8) Vitamin D deficiency: Plan: Very low at 9, hasn't been taking. Started 125mcg PO daily/would continue at dc (9) B12 deficiency: Plan: low normal/PO supplementation started/continued Plan DVT proph: Lovenox SQ continued Dispo: continued inpatient stay, additional torsemide/increased spironolactone as above and remains on diamox. Continues abx as outlined and converted steroids to PO prednisone/plan taper. Likey need increased diuretics for increased fluid/salt intake at baseline PT/OT consulted, will need pulm f/u at dc and rec discussion Dupixent start Admission and Anticipated Discharge Date Admission Date: June 02, 2024 Supervising Physician Co-Signing Physician Notes The patient was not seen by me. The chart was reviewed. Case discussed with YELENA Stroud. Agree with assessment and plan Subjective Eval this morning, sitting up in chair. Got sleep last night, reviewed and did wear CPAP. Encouraged continued compliance. Discussed I&Os, increased intake. Reports have been measuring before drinking but does concur fluid intake likely was >1800cc and definitely over 2L. No sputum production, on room air. Electrolytes being addressed and discussed increased diuretics and repeat labs this afternoon to see about actual needs. Legs w/ edema continued, ganesh hose to be applied and she reports she would use at home but difficulty getting them on herself. Questions/concerns addressed at this time. Physical Exam 2 Physical Exam: General: 64yo female, chronically ill appearing, sitting up in chair, on room air at present Head atraumatic, normocephalic, mmm +JVD Resp: diminished air entry bilaterally with faint exp wheezing bilaterally but improved from day prior, no tachypnea, on room air/CPAP worn overnight, able to speak in complete sentences CV: RRR, 80-90s during exam, +S4, 2+ pitting b/l LE edema, chronic venous stasis changes, flaking of skin. GI +BS, soft/NT ; no barnes Psych: AOx3,cooperative, anxious at times Results & Data Results & Data Vital Signs (Past 12 Hours) Vital Signs Temp Pulse Pulse Resp BP Pulse Ox O2 Del Method 06/05/24 07:27 85 18 85 L Room Air 06/05/24 07:00 87 06/05/24 03:44 98 H 10 L 96 06/05/24 02:22 86 18 132/86 98 Room Air, CPAP 06/04/24 23:45 103 H 17 92 06/04/24 23:00 36.7 C 101 H 16 109/71 91 Room Air 06/04/24 22:30 102 H 06/04/24 21:36 Room Air 06/04/24 20:12 93 H 18 92 Room Air O2 Flow Rate 06/05/24 07:27 06/05/24 07:00 06/05/24 03:44 2 06/05/24 02:22 06/04/24 23:45 2 06/04/24 23:00 06/04/24 22:30 06/04/24 21:36 06/04/24 20:12 Laboratory Results 06/05/24 07:20 06/05/24 07:20 Mag 2.2 on 06/04 Diagnostic Findings Chest X-Ray 06/05/24 08:30 XR chest 2V PA/lateral HISTORY: 64 years-old Female f/u, eval pulm congestion acute shortness of breath COMPARISON: 06/02/2024 TECHNIQUE: PA and lateral views of the chest FINDINGS: Cardiac silhouette is enlarged. Mild linear right basilar opacities. There is improved aeration of left lung base. No pneumothorax, pleural effusion or pulmonary edema. Right upper quadrant surgical clips. Bones appear grossly intact. IMPRESSION: 1. Cardiomegaly without pulmonary edema. 2. Improved aeration of the left lung base. 3. Mild linear right basilar atelectasis. ACT 112: Negative or not required by law. The above report was generated using voice recognition software. It may contain grammatical, syntax or spelling errors. Electronically signed by: Avi Leon M.D. 06/05/2024 9:31 AM PG Care Time/CCT Total # of Minutes Spent Total Time Spent with Patient: Total time spent is greater than 50% in coordination of care (as documented) at patient's floor/unit and/or counseling patient: Coding Level of Care Code 64245 SUB INP/OBS CARE 3/50MIN Diagnoses Pneumonia J18.9 Chronic heart failure with preserved ejection fraction I50.32 Heart failure chronicity: chronic COPD (chronic obstructive pulmonary disease) J44.9 COPD type: unspecified COPD DM II (diabetes mellitus, type II), controlled E11.9 Generalized anxiety disorder F41.1 Tobacco use disorder F17.200 History of pulmonary embolism Z86.711 Vitamin D deficiency E55.9 B12 deficiency E53.8 (2) Heart failure with preserved ejection fraction Heart failure chronicity: chronic Qualified Code(s): I50.32 - Chronic diastolic (congestive) heart failure (3) COPD (chronic obstructive pulmonary disease) COPD type: unspecified COPD Qualified Code(s): J44.9 - Chronic obstructive pulmonary disease, unspecified
[2024-06-05 07:58] LABS: BUN Creatinine Ratio 29.9 (10-20); Calcium 9.2 mg/dl (8.6-10.3); Creatinine Clr Calc Pharmacy 62.3 ml/min
[2024-06-05] MEDS: LANTUS PER UNIT CHARGE SQ SCH (08:40)
[2024-06-05] MEDS: POTASSIUM CHLORIDE CRTAB 20 MEQ TABCR PO STA (08:40)
[2024-06-05] MEDS: predniSONE 10 MG TABLET PO SCH (08:45)
[2024-06-05 09:29] LABS: Magnesium 2.3 mg/dl (1.7-2.4)
--- NOTE | 2024-06-05 09:32 | XRay Report ---
XR chest 2V PA/lateral HISTORY: 64 years-old Female f/u, eval pulm congestion acute shortness of breath COMPARISON: 06/02/2024 TECHNIQUE: PA and lateral views of the chest FINDINGS: Cardiac silhouette is enlarged. Mild linear right basilar opacities. There is improved aeration of le ft lung base. No pneumothorax, pleural effusion or pulmonary edema. Right upper quadrant surgical cli ps. Bones appear grossly intact. IMPRESSION: 1. Cardiomegaly without pulmonary edema. 2. Improved aeration of the left lung base. 3. Mild linear right basilar atelectasis. ACT 112: Negative or not required by law. The above report was generated using voice recognition software. It may contain grammatical, syntax o r spelling errors. Electronically signed by: Avi Leon M.D. 06/05/2024 9:31 AM
[2024-06-05] MEDS ORDERED: TORSEMIDE 20 MG TAB PO ONE (15:00)
[2024-06-05] MEDS: TORSEMIDE 20 MG TAB PO ONE (15:29)
[2024-06-05] MEDS: POTASSIUM CHLORIDE CRTAB 20 MEQ TABCR PO ONE (15:29)
[2024-06-05 17:35] LABS: BUN Creatinine Ratio 28.1 (10-20); Calcium 8.8 mg/dl (8.6-10.3); Creatinine Clr Calc Pharmacy 49.9 ml/min; Potassium 4.2 mmol/L (3.5-5.1)
[2024-06-05] MEDS: SOD PHOSPHATE/SOD BIPHOSPHATE ENEMA 132 ML BTL PR PRN (21:25)
[2024-06-06] MEDS: INSULIN ASPART PER UNIT CHARGE SC SCH (01:36)
[2024-06-06 07:00] LABS: BUN Creatinine Ratio 32.3 (10-20); Calcium 8.6 mg/dl (8.6-10.3); Creatinine Clr Calc Pharmacy 60.9 ml/min; Magnesium 2.3 mg/dl (1.7-2.4); Potassium 3.2 mmol/L (3.5-5.1)
--- NOTE | 2024-06-06 07:56 | Hospitalist Progress Note ---
Date of Service June 06, 2024 Assessment & Plan (1) Heart failure with preserved ejection fraction: Plan: Admitted with PNA/COPD exacerbation 64-year-old female PMHx chronic hypercapnic respiratory failure, asthma, COPD, HFpEF, T2DM, and AYAN here due to pneumonia/COPD exacerbation with recent admission from 05/23-05/24 for COVID infection. Suspect also suspect acute on chronic HFpEF/cor pulmonale from increased fluid intake at baseline, possible noncompliance w/ diuretics/salt as well as CPAP at baseline (prior pulm note CPAP use ~37%) with admission weight ~207lb w/ better reports closer to 202lb. Baseline [employer]LE [employer] regimen: torsemide 100mg, spironolactone 50mg daily Hypervolemic on exam with LE edema/congestion on lung exam and weight gain with increased fluid intake Continued torsemide/spironolactone Added diamox 250mg PO BID to assist w/ diuresis/CO2 retention and CPAP compliance encouraged. CO2 31 on AM chemistries Fluid restriction removed for 06/05 to see about actual PO fluid intake and additional torsemide 40mg PO x 1 on 06/05 and increased spironolactone to 50mg BID given hypokalemia issues for volume overload Patient w/ intake 5+ (almost 6) liters, further discussion drinks AT LEAST 2 gallons of sun tea daily. Discussed 2 gallons ~8 L of fluids and rec 2L but at LEAST CUT BACK TO ONE GALLON DAILY and could have reductoin in diuretics if able to make that change. Prior was on metolazone reported but had issues w/ hypokalemia Further increase spironolactone to 75mg bid. Continue torsemide 100mg daily, diamox 250mg BID. Continued CPAP compliance recommended (has been using) Monitor weight/I&O in AM, consider further increase spironolactone pending repeat exam/chemistries. May need to resume fluid restriction but suspect w/ her noncompliance would not have accurate diuretic regimen at ri. Encouraged hard candy to suck on (sugar free) in the meantime to keep mouth moist CHF clinic at ri rec'd, continued compliance w/ fluid restriction at ri encouraged See below for tx PNA, possible just COPD exacerbation w/ acute on chronic HF but remains on abx as outlined. (2) Pneumonia: Plan: Flu/RSV/Covid negative. CXR w/ hazy opacities in b/l lungs, new in right. ?if compressive atelectasis from volume overload Continues on Zosyn/azithro, sputum as able to produce Xopenex BID, duonebs prn., continue budesonide/formoterol. CPAP compliance for above Prednisone decreased to 30mg, will decrease to 20mg for AM as suspect more from #1 Consider switch to Levaquin in AM to complete course ?2step prior to dc (3) COPD (chronic obstructive pulmonary disease): Plan: improved, see above. consider transition to levaquin in AM to complete course. nebs/breathing treatments continued Outpt pulm f/u, consideration for dupixent. smoking cessation encouraged (4) DM II (diabetes mellitus, type II), controlled: Plan: A1c 9.8 in March, likely worse w/ ongoing steroids. Lantus 50u at home. Pharmacy consulted for glycemic management, appreciate. Monitor BSGs/adjustment as needed. DM diet continued, should be encouraged to limit frequent snacking (5) Generalized anxiety disorder: Plan: continue Quetiapine 200 mg and Alprazolam but made alprazolam 0.5mg TID scheduled as takes at home and has been getting. Again, CPAP compliance encouraged/did use last evening and should be continued w/ continued benzo use (6) Tobacco use disorder: Plan: current smoker , 1.5pack day reported by admission team but patient tells me only smoking >1pack when doing meth many years ago, prior addiction to oxycodone and down to 2-3 a day. Cessation encouraged. Nicotine patch if requested (7) History of pulmonary embolism: Plan: continue home lovenox 150 sq daily (8) Vitamin D deficiency: Plan: Very low at 9, hasn't been taking. Started 125mcg PO daily/would continue at dc (9) B12 deficiency: Plan: low normal/PO supplementation started should be continued PO at dc Plan DVT proph: Lovenox SQ continued Dispo: continued inpatient stay, spironolactone increased and monitor for further increase/consider prn metolazone. Consideration to transition to PO Levaquin for abx in AM unless sputum cx/fever/worse sputum but has been nonproductive as suspect 2nd to volume overload/pulm congestion/weight gain. CPAP HS continued. PT/OT while inpatient PET scan outpt per patient already in place for later this month Hopefully home in next 24-48hours on appropraite diuretic regimen to prevent readmission. Continued support/counseling for low salt/2L daily fluid restriction encouraged. Consider CHF clinic f/u Admission and Anticipated Discharge Date Admission Date: June 02, 2024 Supervising Physician Co-Signing Physician Notes The patient was not seen by me. The chart was reviewed. Case discussed with YELENA Stroud. Agree with assessment and plan Subjective Evaluated this morning, sitting up in bed. Fatigued appearing. Discussed weight only down minimal despite significant increase in diuretics and suspect related to her fluid intake. Further discussion w/ minimum 2 gallons of sun tea daily broken down for patient minimum 4L in gallon, which means drinking 8L when should be sticking to 2L/less w/ salt restriction. Prior use of metolazone caused issues with her potassium, discussed increasing her spironolactone and possible further increase pending weights/I&Os/volume status. Hopefully with time and abiltiy to cut back on PO fluid intake can have decrease in diuretics but wanting to prevent readmission and need to know true needs at dc if unable to cut back but can consider some restriction in AM to prevent excessive fluid intake if remains >4L as goal discussed to limit to 1gallon tea but ideally would be less. Did use CPAP last evening. Leg edema stable. Good appetite. Questions/concerns addressed at this time. Physical Exam 2 Physical Exam: General: 64yo female, chronically ill appearing, sitting up in chair, on room air at present but fatigued appearing Head atraumatic, normocephalic, mmm +JVD Resp: improvement in air entry, less wheezing, diminished in the bases, on room air at rest, did wear CPAP last evening CV: RRR, 80-90s during exam, +S4, 2+ pitting b/l LE edema (slight reduction), chronic venous stasis changes, flaking of skin. GI +BS, soft/NT ; no barnes Psych: AOx3,cooperative Results & Data Results & Data Vital Signs (Past 12 Hours) Vital Signs Temp Pulse Pulse Resp BP Pulse Ox O2 Del Method 06/06/24 07:47 86 16 95 Room Air 06/06/24 07:33 36.5 C 82 16 127/80 94 Room Air 06/06/24 03:46 36.6 C 83 20 149/89 H 100 Room Air, CPAP 06/06/24 02:45 86 15 99 06/06/24 00:09 37.1 C 91 H 20 129/76 92 Room Air 06/06/24 00:02 90 10 L 98 06/05/24 22:05 95 H 06/05/24 20:37 Room Air 06/05/24 20:27 101 H 18 91 Room Air O2 Flow Rate 06/06/24 07:47 06/06/24 07:33 06/06/24 03:46 06/06/24 02:45 2 06/06/24 00:09 06/06/24 00:02 2 06/05/24 22:05 06/05/24 20:37 06/05/24 20:27 Diagnostic Findings 06/05/24 07:20 06/06/24 06:19 Mag 2.3 PG Care Time/CCT Total # of Minutes Spent Total Time Spent with Patient: Total time spent is greater than 50% in coordination of care (as documented) at patient's floor/unit and/or counseling patient: Coding Level of Care Code 26926 SUB INP/OBS CARE 3/50MIN Diagnoses Chronic heart failure with preserved ejection fraction I50.32 Heart failure chronicity: chronic Pneumonia J18.9 COPD (chronic obstructive pulmonary disease) J44.9 COPD type: unspecified COPD DM II (diabetes mellitus, type II), controlled E11.9 Generalized anxiety disorder F41.1 Tobacco use disorder F17.200 History of pulmonary embolism Z86.711 Vitamin D deficiency E55.9 B12 deficiency E53.8 (1) Heart failure with preserved ejection fraction Heart failure chronicity: chronic Qualified Code(s): I50.32 - Chronic diastolic (congestive) heart failure (3) COPD (chronic obstructive pulmonary disease) COPD type: unspecified COPD Qualified Code(s): J44.9 - Chronic obstructive pulmonary disease, unspecified
[2024-06-06] MEDS: POTASSIUM CHLORIDE CRTAB 20 MEQ TABCR PO STA (09:11)
[2024-06-06] MEDS: LANTUS PER UNIT CHARGE SQ SCH (09:11)
[2024-06-06] MEDS: SPIRONOLACTONE 25 MG TAB PO SCH (09:12)
[2024-06-06] MEDS: POLYETHYLENE (MIRALAX) 17 GM PACK PO PRN (09:19)
[2024-06-06] MEDS: PHARMACY GLYCEMIC MGMT CONSULT PRN (09:19)
--- NOTE | 2024-06-06 11:40 | Pharmacy Report ---
Pharmacy Glycemic Short Note 2 - Date of Service June 06, 2024 - Glycemic Short BSG Results (Last 24 hours): 06/05/24 06/05/24 06/05/24 12:05 16:56 17:12 Glucose 117 H POC Glucose 190 H 139 H 06/05/24 06/05/24 06/05/24 20:19 20:21 20:22 Glucose POC Glucose 370 H* 215 H 320 H* 06/05/24 06/06/24 06/06/24 22:32 01:34 06:19 Glucose 118 H POC Glucose 118 H 92 06/06/24 08:12 Glucose POC Glucose 124 H OUTPATIENT ANTIDIABETIC REGIMEN: * Lantus 50 units SC qAM * Novolog 10 units SC TIDM HbA1c: 8.3% (01/19/24) ASSESSMENT: 06/06 * Patient received a total of 110 units of insulin yesterday (55 were basal and 55 were bolus). * BSGs fluctuated throughout the day yesterday (758-438-479-345-118mg/dL). Due to the low fasting BSG yesterday, total daily basal insulin was decreased from 60 to 55 units. * Fasting BSG was 124mg/dL this morning so the basal insulin was reduced further to 50 units in the morning. Prednisone dose has also been reduced from 30mg to 20mg qam starting tomorrow. * Bolus insulin parameters will be kept as is for now. 06/03 * LL is a 64 year old female admitted with COPD exacerbation/pneumonia in context of recent hospitalization (discharged 05/23/24) * Hyperglycemic on presentation and ordered methylprednisolone 60 mg IV daily * Patient is well-known to pharmacy glycemic service due to multiple admissi ons/consultations * Blood sugar significantly improved at lunchtime (163 mg/dL), will hold off on more aggressive measures at this time PLAN FOR INPATIENT GLYCEMIC CONTROL: * Basal insulin * Lantus 50 units SC daily * Bolus insulin * NovoLog per scale ACHS or Q6hrs while NPO * Goal Range: Low 120 mg/dL - High 150 mg/dL * Correction Factor: 20 mg/dL/unit * Nutritional / Prandial insulin per carb ratio of 1 unit per 4 grams CHO consumed
[2024-06-06] MEDS: METOPROLOL TARTRATE 25 MG TAB PO ONE (17:20)
[2024-06-07 06:55] LABS: Hematocrit (blood only) 41.4 % (37.0-47.0); Hemoglobin 12.3 g/dl (12.0-16.0); Mean Corpuscular Hemoglobin 23.9 pg (25.0-34.0); Mean Corpuscular Hgb Conc 29.7 g/dL (32.0-36.0); Mean Corpuscular Volume 80.4 fL (80.0-100.0); Mean Platelet Volume 9.5 fL (9.4-12.4); Platelet Count 284 K/uL (130-400); RDW Coefficient of Variation 22.1 % (11.5-14.5); RDW Standard Deviation 63.6 fL (36.4-46.3); Red Blood Count 5.15 M/uL (4.20-5.40); White Blood Count 16.83 K/ul (4.8-10.8)
[2024-06-07 07:10] LABS: BUN Creatinine Ratio 33.7 (10-20); Calcium 8.6 mg/dl (8.6-10.3); Creatinine Clr Calc Pharmacy 71.8 ml/min; Magnesium 2.3 mg/dl (1.7-2.4); Potassium 3.1 mmol/L (3.5-5.1)
[2024-06-07] MEDS: POTASSIUM CHLORIDE / WTR 10 MEQ/100 ML PLCT IV SCH (08:46)
[2024-06-07] MEDS: predniSONE 20 MG TAB PO SCH (08:53)
[2024-06-07] MEDS: INSULIN ASPART PER UNIT CHARGE SC SCH ×2 (09:03→12:57)
--- NOTE | 2024-06-07 09:43 | Pharmacy Report ---
Pharmacy Glycemic Short Note 2 - Date of Service June 07, 2024 - Glycemic Short BSG Results (Last 24 hours): 06/06/24 06/06/24 06/06/24 12:13 17:04 20:52 Glucose POC Glucose 240 H 120 H 92 06/06/24 06/07/24 06/07/24 22:16 05:54 07:45 Glucose 126 H POC Glucose 209 H 141 H OUTPATIENT ANTIDIABETIC REGIMEN: * Lantus 50 units SC qAM * Novolog 10 units SC TIDM HbA1c: 8.3% (01/19/24) ASSESSMENT: 06/07: * Janae received 101 units of insulin yesterday, 50 of which were basal. BSGs were: 760-431-703-92 mg/dL. * Fasting BSG this AM was 141 mg/dL. Continue with reduced basal dose since Prednisone was reduced to 20 mg PO daily starting today. * Lunchtime BSG remains elevated on a daily basis. Will tighten Novolog with breakfast only then actually loosen parameters for the rest of the day. 06/06: * Patient received a total of 110 units of insulin yesterday (55 were basal and 55 were bolus). * BSGs fluctuated throughout the day yesterday ([phone]/dL). Due to the low fasting BSG yesterday, total daily basal insulin was decreased from 60 to 55 units. * Fasting BSG was 124mg/dL this morning so the basal insulin was reduced further to 50 units in the morning. Prednisone dose has also been reduced from 30mg to 20mg qam starting tomorrow. * Bolus insulin parameters will be kept as is for now. 06/03: * LL is a 64 year old female admitted with COPD exacerbation/pneumonia in context of recent hospitalization (discharged 05/23/24) * Hyperglycemic on presentation and ordered methylprednisolone 60 mg IV daily * Patient is well-known to pharmacy glycemic service due to multiple admissions/consultations * Blood sugar significantly improved at lunchtime (163 mg/dL), will hold off on more aggressive measures at this time PLAN FOR INPATIENT GLYCEMIC CONTROL: * Basal insulin * Lantus 50 units SC daily * Bolus insulin * NovoLog per scale ACHS or Q6hrs while NPO * Goal Range: Low 120 mg/dL - High 150 mg/dL * Breakfast: Correction Factor: 12 mg/dL/unit; Carb ratio of 1 unit per 3 grams CHO consumed * Lunch, Dinner, HS: Correction Factor: 20 mg/dL/unit; Carb ratio of 1 unit per 5 grams CHO consumed
--- NOTE | 2024-06-07 09:44 | XRay Report ---
XR chest 2V PA/lateral HISTORY: 64 years-old Female f/u acute shortness of breath COMPARISON: 06/05/2024 TECHNIQUE: PA and lateral views of the chest FINDINGS: Cardiac silhouette is enlarged. No pneumothorax, pleural effusion or overt pulmonary edema. Mild line ar bibasilar atelectasis versus scarring noted with hyperinflation. Aeration of the right lung base. Bones appear grossly intact. IMPRESSION: 1. Cardiomegaly without overt pulmonary edema. 2. Improved aeration of the right lung base with mild bibasilar atelectasis/scarring. ACT 112: Negative or not required by law. The above report was generated using voice recognition software. It may contain grammatical, syntax o r spelling errors. Electronically signed by: Avi Leon M.D. 06/07/2024 9:42 AM
[2024-06-07] MEDS: POTASSIUM CHLORIDE CRTAB 20 MEQ TABCR PO ONE (14:53)
--- NOTE | 2024-06-07 18:27 | Hospitalist Progress Note ---
Date of Service June 07, 2024 Assessment & Plan (1) Heart failure with preserved ejection fraction: Plan: Admitted with PNA/COPD exacerbation 64-year-old female PMHx chronic hypercapnic respiratory failure, asthma, COPD, HFpEF, T2DM, and AYAN with recent admission from 05/23-05/24 for COVID infection. Suspect also acute on chronic HFpEF/cor pulmonale from increased fluid intake at baseline, possible noncompliance with diuretics/salt, as well as CPAP at baseline (prior pulm note CPAP use ~37%) with admission weight ~207lb w/ better reports closer to 202lb. Baseline [employer] regimen: torsemide 100mg, spironolactone 50mg daily. Was previously on metolazone but reported issues with hypokalemia Significant adjustments have been made to her diuretic regimen as patient drinks almost 8L of fluid daily at home. Extensive counselling regarding excessive fluid intake and thus increased requirement for diuretic use. Concerned that if a fluid restriction is used here then her diuretic regimen for home would not be appropriate. Remains hypervolemic on exam with LE edema/congestion on lung exam - Spironolactone increased to 100 mg BID - Continue torsemide 100 mg daily, Diamox 250 mg BID -- improvement in CO2 on AM labs - Continue CPAP, compliance recommended/encouraged - Encouraged hard candy to suck on (sugar free) in the meantime to keep mouth moist Ongoing issues with hypokalemia, suspect secondary to increased diuretic regimen - Repleted with 10 meq IV x 2, 40 meq PO x 1 -- patient requests only PO supplementation moving forward Recommend CHF clinic on discharge, recommend continued compliance with fluid restriction (2) Pneumonia: Plan: Flu/RSV/Covid negative. CXR w/ hazy opacities in b/l lungs, new in right. ?if compressive atelectasis from volume overload Continue Zosyn, completed course of Azithromycin Continue Xopenex BID, Duoneb PRN, budesonide/formoterol Continue Prednisone 20 mg daily, continue to taper steroids ?2step prior to dc (3) COPD (chronic obstructive pulmonary disease): Plan: Recommend outpatient pulmonology for consideration for Dupixent Smoking cessation encouraged (4) DM II (diabetes mellitus, type II), controlled: Plan: A1c 9.8 in March, likely worse w/ ongoing steroids Lantus 50u at home Pharmacy consulted for glycemic management DM diet continued, should be encouraged to limit frequent snacking (5) Generalized anxiety disorder: Plan: Continue Quetiapine 200 mg and Alprazolam but made alprazolam 0.5mg TID scheduled as takes at home and has been getting Again, CPAP compliance encouraged and should be continued with continued benzo use (6) Tobacco use disorder: Plan: Current smoker, 1.5pack day reported by admission team but patient has since re ported >1 ppd was many years ago when using methamphetamine Cessation encouraged Nicotine patch if requested (7) History of pulmonary embolism: Plan: Continue home lovenox 150 sq daily (8) Vitamin D deficiency: Plan: Low at 9, had not been taking supplement outpatient Started on 125mcg PO daily this admission/would continue at dc (9) B12 deficiency: Plan: Low normal/PO supplementation started Should be continued PO at dc Plan DVT proph: Lovenox SQ continued Dispo: continued inpatient stay, spironolactone increased and monitor for further increase/consider prn metolazone. PT/OT while inpatient PET scan outpt per patient already in place for later this month Hopefully home in next 24-48hours on appropriate diuretic regimen to prevent readmission. Continued support/counseling for low salt/2L daily fluid restriction encouraged. Consider CHF clinic f/u Admission and Anticipated Discharge Date Admission Date: June 02, 2024 Supervising Physician Co-Signing Physician Notes Attending Attestation - Chart reviewed, care plan d/w YELENA Ponce. I agree w/ the rosario components of her documentation. Toni Abreu MD Subjective Patient seen and evaluated in bedside chair. She reports "I feel like I've been ran over by a jossleine truck" in regards to her energy level. She notes a nonproductive cough. She reports some frustration regarding IV potassium and requests only oral potassium repletion moving forward. We further discussed her fluid intake, further recommendations and adjustments to her regimen. No further acute complaints or concerns at this time. Physical Exam Physical Exam: General: No acute distress, nondiaphoretic, chronically ill-appearing, fatigued. Cardiac: Regular rate and rhythm in the 80s. S4 present. 2+ pitting edema to mid-calf bilaterally with chronic venous stasis changes. Pulm: Diminished at bases but otherwise clear to auscultation bilaterally without wheezes, rales or rhonchi. No respiratory distress. 97% on room air. Abdominal: Soft, nontender, nondistended. Bowel sounds present. Neuro: A&O x3. No focal neurological deficits. Results & Data Results & Data Vital Signs (Past 12 Hours) Vital Signs Temp Pulse Pulse Resp BP Pulse Ox O2 Del Method 06/07/24 15:13 98.1 F 105 H 20 132/82 97 Room Air 06/07/24 13:03 95 H 06/07/24 10:56 97.7 F 91 H 20 128/89 96 Room Air 06/07/24 07:45 Room Air 06/07/24 07:35 85 18 90 Room Air 06/07/24 07:34 98.2 F 80 20 111/78 95 Room Air Laboratory Results Reviewed CBC with differential Reviewed BMP/chemistries PG Care Time/CCT Total # of Minutes Spent Total Time Spent with Patient: Total time spent is greater than 50% in coordination of care (as documented) at patient's floor/unit and/or counseling patient: Coding Level of Care Code 50091 SUB INP/OBS CARE 3/50MIN Diagnoses Chronic heart failure with preserved ejection fraction I50.32 Heart failure chronicity: chronic Pneumonia J18.9 COPD (chronic obstructive pulmonary disease) J44.9 COPD type: unspecified COPD DM II (diabetes mellitus, type II), controlled E11.9 Generalized anxiety disorder F41.1 Tobacco use disorder F17.200 History of pulmonary embolism Z86.711 Vitamin D deficiency E55.9 B12 deficiency E53.8 (1) Heart failure with preserved ejection fraction Heart failure chronicity: chronic Qualified Code(s): I50.32 - Chronic diastolic (congestive) heart failure (3) COPD (chronic obstructive pulmonary disease) COPD type: unspecified COPD Qualified Code(s): J44.9 - Chronic obstructive pulmonary disease, unspecified
[2024-06-08 07:35] LABS: Hematocrit (blood only) 43.5 % (37.0-47.0); Mean Corpuscular Hemoglobin 23.9 pg (25.0-34.0); Mean Corpuscular Hgb Conc 29.9 g/dL (32.0-36.0); Mean Corpuscular Volume 80.1 fL (80.0-100.0); Mean Platelet Volume 9.6 fL (9.4-12.4); Nucleated RBC # (auto) 0.02 K/uL (0.00-0.12); Nucleated RBC % (auto) 0.1 %; Platelet Count 281 K/uL (130-400); RDW Coefficient of Variation 22.5 % (11.5-14.5); RDW Standard Deviation 63.3 fL (36.4-46.3); Red Blood Count 5.43 M/uL (4.20-5.40); White Blood Count 17.01 K/ul (4.8-10.8)
[2024-06-08 07:46] LABS: BUN Creatinine Ratio 34.9 (10-20); Calcium 8.6 mg/dl (8.6-10.3); Creatinine Clr Calc Pharmacy 71.7 ml/min; Potassium 3.5 mmol/L (3.5-5.1)
--- NOTE | 2024-06-08 08:10 | Hospitalist Progress Note ---
Date of Service June 08, 2024 Assessment & Plan (1) Heart failure with preserved ejection fraction: Plan: Admitted with PNA/COPD exacerbation 64-year-old female PMHx chronic hypercapnic respiratory failure, asthma, COPD, HFpEF, T2DM, and AYAN with recent admission from 05/23-05/24 for COVID infection. Suspect also acute on chronic HFpEF/cor pulmonale from increased fluid intake at baseline, possible noncompliance with diuretics/salt, as well as CPAP at baseline (prior pulm note CPAP use ~37%) with admission weight ~207lb w/ better reports closer to 202lb. Baseline [employer] regimen: torsemide 100mg, spironolactone 50mg daily. Was previously on metolazone but reported issues with hypokalemia Significant adjustments have been made to her diuretic regimen as patient drinks almost 8L of fluid daily at home. Extensive counselling regarding excessive fluid intake and thus increased requirement for diuretic use. Concerned that if a fluid restriction is used here then her diuretic regimen for home would not be appropriate. Now appears euvolemic on exam and at dry weight of 202 lb today - Started metoprolol 12.5 mg BID for heart rate control - Continue Spironolactone 100 mg BID, torsemide 100 mg daily, Diamox 250 mg BID -- improvement in CO2 on AM labs - Continue CPAP, compliance recommended/encouraged - Hypokalemia resolved; resumed home supplement potassium chloride 40 meq PO daily - Encouraged hard candy to suck on (sugar free) in the meantime to keep mouth moist - Recommend CHF clinic on discharge, recommend continued compliance with fluid restriction (2) Pneumonia: Plan: CXR w/ hazy opacities in b/l lungs, new in right. Flu/RSV/Covid negative - Completed course of Zosyn x 5 days and Azithromycin x 3 days - Continue Xopenex BID, Duoneb PRN, budesonide/formoterol - Will decrease prednisone to 10 mg x 2 days starting 06/09 (3) COPD (chronic obstructive pulmonary disease): Plan: Recommend outpatient pulmonology for consideration for Dupixent Smoking cessation encouraged (4) DM II (diabetes mellitus, type II), controlled: Plan: A1c 9.8 in March, likely worse w/ ongoing steroids Lantus 50u at home Pharmacy consulted for glycemic management DM diet continued, should be encouraged to limit frequent snacking (5) Generalized anxiety disorder: Plan: Continue Quetiapine 200 mg and Alprazolam but made alprazolam 0.5mg TID scheduled as takes at home and has been getting Again, CPAP compliance encouraged and should be continued with continued benzo use (6) Tobacco use disorder: Plan: Current smoker, 1.5pack day reported by admission team but patient has since reported >1 ppd was many years ago when using methamphetamine Cessation encouraged Nicotine patch if requested (7) History of pulmonary embolism: Plan: Continue home lovenox 150 sq daily (8) Vitamin D deficiency: Plan: Low at 9, had not been taking supplement outpatient Started on 125mcg PO daily this admission/would continue at dc (9) B12 deficiency: Plan: Low normal/PO supplementation started Should be continued PO at dc Plan DVT proph: Lovenox SQ continued Dispo: continued inpatient stay, diuretic regimen seems optimized, starting metoprolol for HR control PET scan outpt per patient already in place for later this month Hopefully home in next 24-48hours on appropriate diuretic regimen to prevent readmission. Continued support/counseling for low salt/2L daily fluid restriction encouraged. Consider CHF clinic f/u Admission and Anticipated Discharge Date Admission Date: June 02, 2024 Supervising Physician Co-Signing Physician Notes Attending Attestation - Chart reviewed, care plan d/w YELENA Ponce. I agree w/ the rosario components of her documentation. Toni Abreu MD Subjective Patient seen and evaluated in bedside chair. She reports that her breathing feels improved today. She had questions regarding her diuretic regimen; addressed and answered. Discussed updated treatment plan and possibility of discharge tomorrow. No additional complaints or concerns at this time. Physical Exam Physical Exam: General: No acute distress, nondiaphoretic, chronically ill-appearing, fatigued. Now at dry weight of 92 kg. Cardiac: Regular rate and rhythm in the 80s. S4 present. 1+ pitting edema to mid-calf bilaterally with chronic venous stasis changes -- much improved. Pulm: Diminished at bases but otherwise clear to auscultation bilaterally without wheezes, rales or rhonchi. No respiratory distress. 96% on room air. Abdominal: Soft, nontender, nondistended. Bowel sounds present. Neuro: A&O x3. No focal neurological deficits. Results & Data Results & Data Vital Signs (Past 12 Hours) Vital Signs Temp Pulse Pulse Resp BP BP Pulse Ox 06/08/24 08:01 97.9 F 89 20 120/81 95 06/08/24 07:36 94 H 06/08/24 07:34 80 18 91 06/08/24 03:34 80 12 100 06/08/24 02:36 91 H 18 139/79 96 06/07/24 23:55 87 16 99 06/07/24 22:21 97.9 F 91 H 16 106/73 92 06/07/24 21:50 97 H 06/07/24 20:14 90 18 90 O2 Del Method O2 Flow Rate FiO2 06/08/24 08:01 Room Air 06/08/24 07:36 06/08/24 07:34 Room Air 06/08/24 03:34 2 06/08/24 02:36 CPAP 2 06/07/24 23:55 2 06/07/24 22:21 Room Air 06/07/24 21:50 06/07/24 20:14 Room Air Laboratory Results Reviewed CBC Reviewed BMP Diagnostic Findings Reviewed telemetry PG Care Time/CCT Total # of Minutes Spent Total Time Spent with Patient: Total time spent is greater than 50% in coordination of care (as documented) at patient's floor/unit and/or counseling patient: Coding Level of Care Code 28871 SUB INP/OBS CARE 3/50MIN Diagnoses Chronic heart failure with preserved ejection fraction I50.32 Heart failure chronicity: chronic Pneumonia J18.9 COPD (chronic obstructive pulmonary disease) J44.9 COPD type: unspecified COPD DM II (diabetes mellitus, type II), controlled E11.9 Generalized anxiety disorder F41.1 Tobacco use disorder F17.200 History of pulmonary embolism Z86.711 Vitamin D deficiency E55.9 B12 deficiency E53.8 (1) Heart failure with preserved ejection fraction Heart failure chronicity: chronic Qualified Code(s): I50.32 - Chronic diastolic (congestive) heart failure (3) COPD (chronic obstructive pulmonary disease) COPD type: unspecified COPD Qualified Code(s): J44.9 - Chronic obstructive pulmonary disease, unspecified
[2024-06-08] MEDS: POTASSIUM CHLORIDE CRTAB 20 MEQ TABCR PO SCH (09:05)
[2024-06-08] MEDS: SPIRONOLACTONE 100 MG TAB PO SCH (09:11)
[2024-06-08] MEDS: METOPROLOL TARTRATE 25 MG TAB PO SCH (21:05)
[2024-06-09 06:27] LABS: Hematocrit (blood only) 42.4 % (37.0-47.0); Hemoglobin 13.3 g/dl (12.0-16.0); Mean Corpuscular Hemoglobin 24.7 pg (25.0-34.0); Mean Corpuscular Hgb Conc 31.4 g/dL (32.0-36.0); Mean Corpuscular Volume 78.8 fL (80.0-100.0); Mean Platelet Volume 9.6 fL (9.4-12.4); Platelet Count 279 K/uL (130-400); RDW Coefficient of Variation 22.5 % (11.5-14.5); RDW Standard Deviation 62.6 fL (36.4-46.3); Red Blood Count 5.38 M/uL (4.20-5.40); White Blood Count 16.49 K/ul (4.8-10.8)
[2024-06-09 06:54] LABS: BUN Creatinine Ratio 42.1 (10-20); Calcium 8.7 mg/dl (8.6-10.3); Creatinine Clr Calc Pharmacy 77.4 ml/min; Potassium 3.5 mmol/L (3.5-5.1)
[2024-06-09 07:25] VITALS: RESP 18
[2024-06-09] MEDS ORDERED: predniSONE 10 MG TABLET PO SCH (09:00)
[2024-06-09] MEDS: predniSONE 5 MG TAB PO SCH (09:15)
[2024-06-09 11:16] VITALS: PULSE 101; TEMP 99.1; O2SAT 95
[2024-06-09 12:11] VITALS: BP 99/54
--- NOTE | 2024-06-09 16:28 | Discharge Summary ---
Discharge Summary Date of Service June 09, 2024 Principal Dx & Hospital Course #1 = Principal Diagnosis (1) Heart failure with preserved ejection fraction: Admitted with PNA/COPD exacerbation 64-year-old female PMHx chronic hypercapnic respiratory failure, asthma, COPD, HFpEF, T2DM, and AYAN with recent admission from 05/23-05/24 for COVID infection. Suspect also acute on chronic HFpEF/cor pulmonale from increased fluid intake at baseline, possible noncompliance with diuretics/salt, as well as CPAP at baseline (prior pulm note CPAP use ~37%) with admission weight ~207lb w/ better reports closer to lb. Baseline [employer] regimen: torsemide 100mg, spironolactone 50mg daily. Was previously on metolazone but reported issues with hypokalemia Significant adjustments have been made to her diuretic regimen as patient drinks almost 8L of fluid daily at home. Extensive counselling regarding excessive fluid intake and thus increased requirement for diuretic use. Concerned that if a fluid restriction was used here, then her diuretic regimen for home would not be appropriate. Now appears euvolemic on exam and at dry weight of 90 kg on day of discharge - Continue Spironolactone 100 mg BID, torsemide 100 mg daily, Diamox 250 mg BID -- improvement in CO2 on AM labs - Continue CPAP, compliance recommended/encouraged - Hypokalemia resolved; continue home supplement potassium chloride 40 meq PO daily - Encouraged hard candy to suck on (sugar free) in the meantime to keep mouth moist - Recommend CHF clinic on discharge, recommend continued compliance with fluid restriction Attempted to start metoprolol 12.5 mg BID for heart rate control given persistently in 90-100s; patient declined and wanted to discuss with PCP and CHF clinic first (2) Pneumonia: CXR w/ hazy opacities in b/l lungs, new in right. Flu/RSV/Covid negative - Completed course of Zosyn x 5 days and Azithromycin x 3 days - Continue Xopenex BID, Duoneb PRN, budesonide/formoterol - Continue prednisone 15 mg daily per pulmonology's recommendations from visit in Apr 2024 (3) COPD (chronic obstructive pulmonary disease): Recommend outpatient pulmonology for consideration for Dupixent Smoking cessation encouraged (4) DM II (diabetes mellitus, type II), controlled: A1c 9.8 in March, likely worse w/ ongoing steroids Lantus 50u with Novolog bolus and SSI at home Pharmacy consulted for glycemic management DM diet continued, encouraged to limit frequent snacking (5) Generalized anxiety disorder: Continue Quetiapine 200 mg and Alprazolam but made alprazolam 0.5mg TID scheduled as takes at home and has been getting Again, CPAP compliance encouraged and should be continued with continued benzo use (6) History of pulmonary embolism: Continue home lovenox 150 sq daily (7) Vitamin D deficiency: Low at 9, had not been taking supplement outpatient Started on 125mcg PO daily this admission, discussed and patient plans to take OTC multivitamin with vitamin D on discharge (8) Tobacco use disorder: Current smoker, 1.5pack day reported by admission team but patient has since reported >1 ppd was many years ago when using methamphetamine Cessation encouraged Plan DVT proph: Lovenox SQ Dispo: discharged home 06/09/24 Notes For Next Care Provider Multiple adjustments to diuretic regimen and appears was previously not aggressive enough for her needs. Attempted to start metoprolol for HR control and education provided but patient refused at this time; continue to encourage outpatient as tachycardia can contribute to volume overload. Recommend CHF clinic follow-up for diuretic counseling, diet/fluid restriction counseling, etc. Recommend pulm follow-up for consideration of Dupixent Recommend BMP recheck on 06/13/24 with results forwarded to PCP Medication Changes From Visit Spironolactone INCREASED to 100 mg BID STARTED Diamox 250 mg BID Admission HPI Per Admitting Provider Patient is a 64-year-old female PMHx chronic hypercapnic respiratory failure, asthma, COPD, HFpEF, T2DM, and AYAN with multiple recent admission, most recent 05/23-05/22. she presented to the Ed due to worsening SOB, cough and sputum production. She refers chest congestion as well. She called the outpatient Pulmonology which recommended to go to the ED. In the Ed patient was found with pneumonia. On examination patient was on room air, saturating at 94, refers increased SOB. states that had chills but no fever. Veronica been taking her home medi cations as prescribe. she refers not compliant to CPAP at night due to panic attacks. Uses her supplemental O2 as needed, baseline 3 L. Denied any chest pain, palpations, abdominal pain, nausea, vomiting or diarrhea. No runny nose. Ed course: CXR with finsingds of pneumonia. Labs remarkable for leukocytosis. Procal normal. Received Methylprednisone, Zosyn, DuoNeb neb, Azithromycin and lorazepam. Discharge Exam General: No acute distress, nondiaphoretic, chronically ill-appearing. At dry weight of 90 kg. Cardiac: Regular rhythm, tachycardic rate in the 01354d. S4 present. 1+ pitting edema to mid-calf bilaterally with chronic venous stasis changes -- much improved. Pulm: Diminished at bases but otherwise clear to auscultation bilaterally without wheezes, rales or rhonchi. No respiratory distress. 95% on room air. Neuro: A&O x3. No focal neurological deficits. Discharge Plan Discharge Items Patient Disposition: Home - Self-Care Reason For Visit: PNEUMONIA, HF EXACERBATION Discharge Diagnosis: Pneumonia Heart failure exacerbation Activity: Per Instructions section Non-emergency contact: Primary Care Provider and Mirror Department Supervisor Call non-emergency contact if: you have any medication questions and your symptoms worsen Follow-up/Referrals: Jonnie Dan MD [Physician] - 06/27/24 3:30 pm () Kristel Gruber PA-C [Physician Client Relations Representative] - (Follow-up in 1-2 weeks) Radha Barboza PA-C [Primary Care Provider] - 06/15/24 4:05 pm () Diet: Carb Consistent or DM2 and Heart Healthy Ambulatory Orders: Basic Metabolic Panel (Routine) Timeframe: 4 Days Location: Determined by Patient Ordered By: Mine Bhatt Attending Provider Instructions: Janae, You were admitted to the hospital due to pneumonia and a heart failure exacerbation. This is what caused your symptoms of shortness of breath, mucus production, and cough. You were treated with antibiotics for pneumonia while hospitalized and completed your treatment course for this prior to discharge. Your diuretic regimen has been adjusted and I suspect you were not on enough di uretics outpatient to maintain your volume status. With the adjustments made to your diuretic regimen, your weight has remained stable at your dry weight (~200 lbs) and your potassium remains stable. Upon discharge from the hospital: * Continue your diuretic regimen as listed below. This is important to prevent excess fluid buildup. 1. Spironolactone 100 mg twice daily 2. Torsemide 100 mg daily 3. Diamox 250 mg twice daily * Continue your home potassium supplement of 40 meq daily. * Continue to wear your CPAP at bedtime. * Continue prednisone (oral steroid) 15 mg daily. * Continue Lantus insulin 50 units daily, with NovoLog bolus and sliding scale. Monitor your blood sugars at home and call your PCP if your blood sugar is <70 or >300. * If you take an debm-eeh-zvdmchd multivitamin, ensure it has vitamin D included. * Follow-up with your PCP in 1-2 weeks. * Follow-up with pulmonology within the next 1 month. * Follow-up with the heart failure clinic. I recommend starting Metoprolol to better control your heart rate as we discussed. Your PCP or the heart failure clinic can discuss this further with you, and if you are agreeable to taking it, they can prescribe it at that time. * Please get labs checked on 06/13/24. This is to check your electr olytes and kidney function. It was a pleasure taking care of you while you were in the hospital! Call 911 and go to the Emergency Room if: * You have tightness or pain in your chest that does not go away with rest or Nitroglycerin * You are very short of breath even with rest Call your doctor if any of the following symptoms or problems start or get worse: * Shortness of breath or difficulty breathing * Wake up at night short of breath * Chest pain * Cough * Swelling of your hands, fee, or legs * More fatigued or tired with your normal activity * Palpitations - sudden fast heart beats WEIGHT * Weigh yourself every morning after using the bathroom. * Use the same scale. * Wear the same amount of clothing. * Write your weight down on your chart. * Call your doctor if you gain more than 2-3 pounds in 1-2 days. MEDICATIONS * Use this discharge instruction sheet for instructions. * Take your medications at the time your doctor ordered. * Do not skip a dose of your medicines. * If you miss a dose of medicine, take as soon as possible, but DO NOT DOUBLE A DOSE. * Read your medicine information when you get home. * Know all of the side effects of your medicine. * Call your doctor's office if you have any side effects. * Be sure all of your doctors know what medicine and herbs you take (including cold, flu, and herbal medicine). * Pain Medicine: If you do not get relief from your pain, please call your doctor for help. Take the following with you to your follow-up doctor appointments: * Weight Chart * Medication List * List of questions Do not drink excessive alcohol, beer or wine. Pending Studies at Discharge: No Stand-Alone Forms: [facility], Smoking Cessation Medications and DC Order Prescriptions: New spironolactone 100 mg Tablet 100 mg PO BID17 Qty: 60 0RF acetazolamide 250 mg Tablet 250 mg PO BID17 Qty: 60 0RF Continued Trelegy Ellipta 200-62.5-25 mcg blister with device 1 ea INHALATION QAM Qty: 60 0RF albuterol sulfate 90 mcg/actuation HFA aerosol inhaler 2 puff INHALATION Q4H PRN (Reason: Shortness Of Breath Or Wheezing) Qty: 8.5 0RF Dupixent Pen 300 mg/2 mL pen injector 600 mg subcut ONCE Qty: 4 0RF Dupixent Pen 300 mg/2 mL pen injector 300 mg subcut .every other week Qty: 4 6RF potassium chloride [Klor-Con M20] 20 mEq tablet,ER particles/crystals 40 meq PO DAILY Qty: 0 0RF budesonide 0.25 mg/2 mL suspension for nebulization 0.25 mg inhalation BID Qty: 60 3RF prednisone 5 mg tablet 15 mg PO DAILY 90 Days Qty: 270 2RF levalbuterol HCl 1.25 mg/3 mL solution for nebulization 1.25 mg INHALATION Q8H PRN (Reason: Shortness Of Breath Or Wheezing) ipratropium bromide 0.02 % solution 3 ml continuous nebulization QID PRN (Reason: shortness of breath) Qty: 75 0RF calcium polycarbophil [Fiber (calcium polycarbophil)] 625 mg Tablet 625 mg PO QAM Qty: 30 0RF silver sulfadiazine 1 % cream 1 applic topical BID quetiapine 100 mg tablet 100 mg PO HS allopurinol 300 mg tablet 300 mg PO DAILY levalbuterol tartrate 45 mcg/actuation HFA aerosol inhaler 2 puff INHALATION Q6H PRN (Reason: WHEEZE) citalopram 20 mg tablet 20 mg PO HS torsemide 100 mg Tablet 100 mg PO QAM Qty: 30 0RF guaifenesin [Mucinex] 600 mg Tablet Extended Release 12hr 600 mg PO Q12 Qty: 14 0RF nystatin 100,000 unit/mL Suspension 10 ml PO BID Qty: 250 0RF fluticasone propionate [Flonase Allergy Relief] 50 mcg/actuation spray,suspension 1 spray intranasal BID Qty: 0 0RF insulin aspart U-100 [Novolog FlexPen U-100 Insulin] 100 unit/mL (3 mL) insulin pen 10 unit subcut TIDM ascorbic acid (vitamin C) [Vitamin C] 500 mg Tablet 1,000 mg PO DAILY Qty: 60 0RF alprazolam 0.5 mg tablet 0.5 mg PO BID PRN (Reason: ANXIETY ) Hold Instructions: Resume on 04/06/24. Hold while you finish the course of fluconazole for the oral and esophageal thrush Rx Instructions: PT MAY TAKE AN EXTRA TAB FOR ACUTE PANIC ATTACKS- MAX 3 TABS DAILY ondansetron 4 mg tablet,disintegrating 4 mg PO Q8 PRN (Reason: NAUSEA/VOMITING) insulin glargine [Lantus Solostar U-100 Insulin] 100 unit/mL (3 mL) insulin pen 50 unit SUBCUT QAM colchicine 0.6 mg capsule 0.6 mg PO DAILY PRN (Reason: joint pain) Qty: 30 0RF Discontinued spironolactone 50 mg tablet 50 mg PO QAM prednisone 10 mg tablet See Taper PO DIRECTED Qty: 24 0RF Taper: Taper, Blank 30 mg DAILY for 3 Days 20 mg DAILY for 5 Days 10 mg DAILY for 5 Days Rx Instructions: see taper instructions Discharge Orders: Discharge Order- CHF (Routine); Ordered 06/09/24 Ordered By: Mine Ponce Admission Data Admit Date/Time: 06/02/24 21:25 Attending Provider: Toni Abreu Admit Provider: Chinyere Torrez Primary Care Provider: Radha Barboza Other Providers: Riya Mckenna Other Interventions: Discharge Summary Assessment (RN) Last Done: 06/09/24 12:09 Hospital Stay Data Consultations 06/02/24 20:36 ED Decision to Admit Stat Pending Results Patient Have Any Pending Studies at Discharge: No Discharge Instructions Given to Patient (Per Discharging Provider) Janae, You were admitted to the hospital due to pneumonia and a heart failure exacerbation. This is what caused your symptoms of shortness of breath, mucus production, and cough. You were treated with antibiotics for pneumonia while hospitalized and completed your treatment course for this prior to discharge. Your diuretic regimen has been adjusted and I suspect you were not on enough diuretics outpatient to maintain your volume status. With the adjustments made to your diuretic regimen, your weight has remained stable at your dry weight (~200 lbs) and your potassium remains stable. Upon discharge from the hospital: * Continue your diuretic regimen as listed below. This is important to prevent excess fluid buildup. 1. Spironolactone 100 mg twice daily 2. Torsemide 100 mg daily 3. Diamox 250 mg twice daily * Continue your home potassium supplement of 40 meq daily. * Continue to wear your CPAP at bedtime. * Continue prednisone (oral steroid) 15 mg daily. * Continue Lantus insulin 50 units daily, with NovoLog bolus and sliding scale. Monitor your blood sugars at home and call your PCP if your blood sugar is <70 or >300. * If you take an wwqq-ykj-wlgipeu multivitamin, ensure it has vitamin D included. * Follow-up with your PCP in 1-2 weeks. * Follow-up with pulmonology within the next 1 month. * Follow-up with the heart failure clinic. I recommend starting Metoprolol to better control your heart rate as we discussed. Your PCP or the heart failure clinic can discuss this further with you, and if you are agreeable to taking it, they can prescribe it at that time. * Please get labs checked on 06/13/24. This is to check your electrolytes and kidney function. It was a pleasure taking care of you while you were in the hospital! Call 911 and go to the Emergency Room if: * You have tightness or pain in your chest that does not go away with rest or Nitroglycerin * You are very short of breath even with rest Call your doctor if any of the following symptoms or problems start or get worse: * Shortness of breath or difficulty breathing * Wake up at night short of breath * Chest pain * Cough * Swelling of your hands, fee, or legs * More fatigued or tired with your normal activity * Palpitations - sudden fast heart beats WEIGHT * Weigh yourself every morning after using the bathroom. * Use the same scale. * Wear the same amount of clothing. * Write your weight down on your chart. * Call your doctor if you gain more than 2-3 pounds in 1-2 days. MEDICATIONS * Use this discharge instruction sheet for instructions. * Take your medications at the time your doctor ordered. * Do not skip a dose of your medicines. * If you miss a dose of medicine, take as soon as possible, but DO NOT DOUBLE A DOSE. * Read your medicine information when you get home. * Know all of the side effects of your medicine. * Call your doctor's office if you have any side effects. * Be sure all of your doctors know what medicine and herbs you take (including cold, flu, and herbal medicine). * Pain Medicine: If you do not get relief from your pain, please call your doctor for help. Take the following with you to your follow-up doctor appointments: * Weight Chart * Medication List * List of questions Do not drink excessive alcohol, beer or wine. Total Time Total Time Spent Total Time Spent (In Minutes): Greater than 30 minutes spent completing this discharge process including direct patient care, medication reconciliation, documentation, review of labs and images, and coordination of care. Coding Level of Care Code 23605 INP/OBS DISCH >30 MIN Diagnoses Chronic heart failure with preserved ejection fraction I50.32 Heart failure chronicity: chronic Pneumonia J18.9 COPD (chronic obstructive pulmonary disease) J44.9 COPD type: unspecified COPD DM II (diabetes mellitus, type II), controlled E11.9 Generalized anxiety disorder F41.1 History of pulmonary embolism Z86.711 Vitamin D deficiency E55.9 Tobacco use disorder F17.200
== END 2024-06-09 13:19 | disposition home or self-care (01) | DRG 193 ==
LOC: ED 17:10 → EDINP 21:25 → SUATTDRO 21:25 → 2N 22:10

== ENCOUNTER 2024-07-14 21:51 | Observation (INO) ==
--- NOTE | 2024-07-14 22:28 | Emergency Department Note ---
Impression & Plan Acute exacerbation of chronic obstructive airways disease ED Provider Note CHIEF COMPLAINT: Shortness of breath HISTORY OF PRESENTING ILLNESS: This 64-year-old female patient presents to the emergency department via EMS for evaluation of shortness of breath. 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 However, the patient states that her prescribed and home medications are not improving her symptoms and she is now unable to tolerate her CPAP. The shortness of breath has gotten progressively worse over the past 2 days. She has been on prednisone 30 mg QD for the past month. Pulmonology is looking into getting her on other medications to try and get her off of the steroids. She is not currently on any antibiotics. She has just felt "off" all week like she was getting sick. Having a cough, but no fevers. She is on Lovenox for Multiple Myeloma and history of PE. REVIEW OF SYSTEMS: See HPI for pertinent positives and pertinent negatives. ALLERGIES: Codeine, IV contrast, Shellfish, Tramadol, Pollen, Iohexol, Benadryl, Promethazine MEDICATIONS: See below PAST MEDICAL HISTORY: See below PHYSICAL EXAM: VITALS: Vitals are noted on the nurse's note and reviewed by myself. GENERAL: Non toxic, in no acute distress, non-diaphoretic. SKIN: Capillary refill <2 sec. EYES: PERRLA. EOMI. Conjunctivae without injection, sclerae without icterus. NOSE: Patent without discharge. MOUTH: Mucous membranes moist. Uvula midline. Airway patent. NECK: Supple without nuchal rigidity. HEART: Regular rate and rhythm without murmurs gallops or rubs. LUNGS: Clear to auscultation bilaterally with diffuse wheezes throughout, but no obvious rales or rhonchi. Initially the patient had accessory muscle use and retractions. However, after the hour-long nebulizer treatment, the accessory muscle use and retractions resolved. She had some continued persisting wheezing after the hour-long nebulizer treatment that improved further after the repeat DuoNeb treatment. ABDOMEN: Positive bowel sounds x 4. Normal tympanic percussion. Soft, nontender to palpation. No masses or hepatosplenomegaly. Wang sign negative. No CVA tenderness. No guarding, rigidity, or rebound tenderness. No focal RLQ or LLQ tenderness. MUSCULOSKELETAL: The patient has chronic venous stasis changes to her bilateral lower extremities with no change in symptoms per patient. NEURO: Patient was alert and oriented. No focal neurological deficits. DIFFERENTIAL DIAGNOSIS: Differential diagnosis includes URI, bronchitis, pneumonia, pneumothorax, hemothorax, PE, PA, pericarditis, myocarditis, airway obstruction, aspiration, pulmonary edema, asthma, COPD, CHF, pleurisy, metabolic acidosis, anemia, neoplasm, or others. ED COURSE AND MEDICAL DECISION MAKING: MEDICATIONS GIVEN: Hour-long DuoNeb treatment. Solu-Medrol 60 mg IV. Xanax 0.5 mg p.o. DuoNeb treatment. Doxycycline 100 mg p.o. MONITOR: Continuous pullman conductor: Order was placed for continuous pullman conductor. Patient was placed on the pullman conductor and continuous pulse ox. Patient was noted to be in normal sinus rhythm at an initial rate of 94 bpm per my interpretation. EKG: EKG was interpreted by myself as sinus tachycardia at 105 bpm with no acute ST or T wave changes. INTERPRETATION OF LABS: I interpreted the labs with full lab results as below in the lab section of this note. Laboratory results pertinent to the emergent complaint are discussed in the MDM section below. The patient was advised to follow up with their PCP and/or specialist(s) for further outpatient monitoring and management of any abnormal results. INTERPRETATION OF IMAGING: Imaging studies were interpreted by myself and read by radiology as per the imaging section of this note. The patient was advised to follow up with their PCP and/or specialist(s) for further outpatient management of any non-emergent abnormal findings. CT scan of her chest without contrast shows no focal airspace consolidation, pleural effusion, or pneumothorax. There is similar curvilinear presumed atelectatic changes at the lung bases. There is interval callus formation along the anterior margins of the fifth or seventh right ribs. No interval acute traumatic injury identified. EXTERNAL RECORDS REVIEWED: I reviewed the patient's outpatient pulmonary visit from 07/12/2024 CHRONIC MEDICAL/SOCIAL CONDITIONS AFFECTING CARE: Poor compliance with medications/therapy per pulmonology and she continues to smoke about 2 cigarettes a day. CONSULTATIONS: On-call hospitalist MDM SUMMARY: I examined the patient. The patient states that she has had shortness of breath for the past 2 days that is getting progressively worse. She states it feels like one of her COPD exacerbations. She has recently followed up with her genetic physician, oncologist, and PCP. The patient states that she was referred to the ER for admission due to her continued symptoms despite outpatient treatment. An IV lock was placed and labs were drawn. The patient was initially given an hour-long DuoNeb treatment followed by a single DuoNeb treatment for her wheezing. She was given IV steroids. She was also given her dose of oral Xanax since she gets anxious from the DuoNeb treatments. White blood cell count elevated 11.43. Hemoglobin normal at 13.6. Platelet count normal at 273. Coags were normal. VBG with an elevated pCO2, but otherwise normal. Sodium slightly low at 135, glucose 176, and alk phos 133. CMP otherwise without concerning abnormalities. Lactate and procalcitonin are normal. Magnesium normal. BNP normal. Initial high-sensitivity troponin elevated at 15.9 with repeat high-sensitivity troponin decreased to 14.3. The patient has anaphylaxis with IV contrast. Therefore, imaging was performed without contrast. CT scan of her chest without contrast shows no focal airspace consolidation, pleural effusion, or pneumothorax. There is similar curvilinear presumed atelectatic changes at the lung bases. There is interval callus formation along the anterior margins of the fifth or seventh right ribs. No interval acute traumatic injury identified. Due to her continued symptoms despite outpatient treatment, the patient will require admission for her COPD exacerbation. The patient was given doxycycline 100 mg p.o. I spoke with the on-call hospitalist who agreed to admit the patient for further evaluation and treatment. Please refer to their dictation for further details. The patient's care was transferred in stable condition. DIAGNOSIS: COPD exacerbation Past Med/Surg History Problem List (Updated 07/15/24 @ 06:41 by Alessandra Frankel PA-C) Acute exacerbation of chronic obstructive airways disease (Acute) Vitamin D deficiency Hyperglycemia due to diabetes mellitus (Acute) Chronic hypercapnic respiratory failure Bone marrow transplant status Bronchiectasis Allergic asthma Lower extremity edema Generalized anxiety disorder DM II (diabetes mellitus, type II), controlled COPD (chronic obstructive pulmonary disease) Dyspnea D-dimer, elevated (Acute) Palpitations (Acute) Chest pain (Acute) Bilateral knee pain CHF exacerbation (Acute) COPD exacerbation (Acute) Chest pain Right knee pain Acute exacerbation of chronic obstructive pulmonary disease (Acute) Leukocytosis (Acute) Acute hypokalemia (Acute) Diabetes Hypokalemia Tobacco abuse counseling Moderate persistent asthma Constipation Acute bronchitis Pulmonary vascular congestion Medical History B12 deficiency Pneumonia COPD exacerbation Anxiety Thrush of mouth and esophagus Heart failure with preserved ejection fraction Elevated brain natriuretic peptide (BNP) level Acute dyspnea Acute hypoxic respiratory failure Elevated troponin COVID-19 Normocytic hypochromic anemia Failure of outpatient treatment Bilateral edema of lower extremity Gout Tobacco use disorder Hematochezia History of pulmonary embolism Michela esophagitis Acute and chronic respiratory failure with hypoxia Chronic anticoagulation Obesity hypoventilation syndrome Multiple myeloma Last chemotherapy 2017 Follows with medical oncology in [facility] History of pulmonary embolism Acute exacerbation of chronic obstructive pulmonary disease Acute heart failure with preserved ejection fraction (HFpEF) Acute exacerbation of chronic obstructive pulmonary disease Tobacco abuse Opiate dependence Asthma Surgical History No pertinent past surgical history Family History Sister Asthma Social History Smoking Status: Current every day smoker Tobacco Type: Cigarettes Age Started Using Tobacco: 15; Cigarettes Per Day: 2-3; Second Hand Exposure: No; Do You Dip or Chew Tobacco: No; Tobacco Cessation Education Requested by Patient: No Hx Alcohol Use: No Hx Substance Use: Yes Last Used Substance: Days (ago) Last Used Substance Other:: prescribed daily Substance Use Type Other:: suboxone- chronic pain Preferred Language: [place] Communication Ability: Effective Television Production Technician Required: No Beliefs That Will Affect Care: None Current Living Situation: Other Current Living Situation Comment: lives with sister Other Information That Helps Us Care for You: No Feels Safe at Home: Yes Safety Concerns: Feels Safe At This Time Assistive Devices: CPAP, Denture - Upper, Denture - Lower, Glasses and Oxygen - Continuous Assistive Devices Comment: glasses with patient Allergies Allergies Allergy/AdvReac Type Severity Reaction Status Date / Time codeine Allergy Severe Anaphylaxis Verified 06/23/24 15:46 Iodinated Contrast Media Allergy Severe Anaphylaxis Verified 06/23/24 15:46 shellfish derived Allergy Severe Anaphylaxis Verified 06/23/24 15:46 tramadol Allergy Intermediate ITCHINESS Verified 06/23/24 15:46 pollen extracts Allergy Mild Congested Verified 06/23/24 15:46 iohexol Allergy Unknown CAN'T Verified 06/23/24 15:46 REMEMBER diphenhydramine AdvReac Severe Anxiety Verified 06/23/24 15:46 [From Benadryl] promethazine AdvReac Intermediate Anxiety Verified 06/23/24 15:46 Home Meds Home Medications Medication Instructions Recorded Confirmed levalbuterol HCl 1.25 mg/3 mL 1.25 mg inhalation Q8H PRN 01/16/23 07/15/24 solution for nebulization Shortness Of Breath Or Wheezing insulin aspart U-100 100 unit/mL 10 unit subcut TIDM 11/07/23 07/15/24 (3 mL) subcutaneous pen (Novolog FlexPen U-100 Insulin aspart) alprazolam 0.5 mg tablet 0.5 mg PO BID PRN ANXIETY 02/28/24 07/15/24 insulin glargine 100 unit/mL (3 50 unit subcut QAM 02/28/24 07/15/24 mL) subcutaneous pen (Lantus Solostar U-100 Insulin) ondansetron 4 mg disintegrating 4 mg PO Q8 PRN NAUSEA/VOMITING 02/28/24 07/15/24 tablet allopurinol 300 mg tablet 300 mg PO DAILY 03/23/24 07/15/24 levalbuterol tartrate 45 2 puff inhalation Q6H PRN WHEEZE 03/23/24 07/15/24 mcg/actuation aerosol inhaler quetiapine 100 mg tablet 100 mg PO HS 03/23/24 07/15/24 silver sulfadiazine 1 % topical 1 applic topical BID 03/23/24 07/15/24 cream citalopram 20 mg tablet 20 mg PO HS 04/21/24 07/15/24 Previous Rx's Medication Instructions Recorded fluticasone propionate 50 1 spray intranasal BID nasal 09/15/23 mcg/actuation nasal congestion #0 mL spray,suspension (Flonase Allergy Relief) ipratropium bromide 0.02 % 3 ml continuous nebulization QID 10/17/23 solution for inhalation PRN shortness of breath #75 mL calcium polycarbophil 625 mg 625 mg PO QAM #30 tabs 10/30/23 tablet (Fiber (calcium polycarbophil)) ascorbic acid (vitamin C) 500 mg 1,000 mg (2 x 500 mg) PO DAILY #60 01/02/24 tablet (Vitamin C) tabs colchicine 0.6 mg capsule 0.6 mg PO DAILY PRN joint pain #30 03/01/24 caps potassium chloride 20 mEq 40 meq (2 x 20 mEq) PO DAILY #0 03/28/24 tablet,extended tabs release(part/cryst) (Klor-Con M) guaifenesin 600 mg tablet, 600 mg PO Q12 #14 tabs 04/26/24 extended release 12 hr (Mucinex) torsemide 100 mg tablet 100 mg PO QAM #30 tabs 04/26/24 nystatin 100,000 unit/mL oral 10 ml PO BID #250 mL 05/23/24 suspension budesonide 0.25 mg/2 mL suspension 0.25 mg (2 mL) inhalation BID #60 05/24/24 for nebulization mL prednisone 5 mg tablet 15 mg (3 x 5 mg) PO DAILY 90 days 05/24/24 #270 tabs dupilumab 300 mg/2 mL subcutaneous 300 mg (2 mL) subcut .every other 06/02/24 pen injector (Dupixent) week #4 mL dupilumab 300 mg/2 mL subcutaneous 600 mg (4 mL) subcut ONCE #4 mL 06/02/24 pen injector (Dupixent) acetazolamide 250 mg tablet 250 mg PO BID17 #60 tabs 06/09/24 spironolactone 100 mg tablet 100 mg PO BID17 #60 tabs 06/09/24 albuterol sulfate 90 mcg/actuation 2 puff inhalation Q4H PRN 07/12/24 aerosol inhaler Shortness Of Breath Or Wheezing #8.5 grams fluticasone fur. 200 mcg-umeclid 1 ea inhalation QAM #60 ea 07/12/24 62.5 mcg-vilant 25 mcg inhalat.powder (Trelegy Ellipta) Results & Data (ED) Vital Signs Vital Signs - 24 hr 07/14/24 21:57 07/14/24 21:58 07/14/24 21:58 Temperature 37 C Temperature Source Oral Pulse Rate 103 H Pulse Rate from SpO2 Sensor 101 H Pulse Rhythm Regular Pulse Strength Normal Respiratory Rate 19 Respiratory Effort / Characteristics Non-Labored Spontaneous Non-Labored Spontaneous Respiratory Depth Deep Deep Respiratory Pattern Regular Regular Blood Pressure 118/81 118/81 Blood Pressure Mean 93 93 Pulse Oximetry 96 97 Oxygen Delivery Method Room Air Oxygen Flow Rate Sepsis Recent Fever Within 48 Hours No Sepsis New/Unexplained Change in Mental Status No Sepsis Action Taken by Nursing No Action Required 07/14/24 21:58 07/14/24 22:04 07/14/24 22:33 Temperature Temperature Source Pulse Rate 100 H 98 H Pulse Rate from SpO2 Sensor Pulse Rhythm Pulse Strength Respiratory Rate 19 Respiratory Effort / Characteristics Respiratory Depth Respiratory Pattern Blood Pressure Blood Pressure Mean Pulse Oximetry 96 91 Oxygen Delivery Method Room Air Oxygen Flow Rate Sepsis Recent Fever Within 48 Hours Sepsis New/Unexplained Change in Mental Status Sepsis Action Taken by Nursing 07/14/24 23:39 07/15/24 00:12 07/15/24 00:30 Temperature Temperature Source Pulse Rate 94 H 96 H 96 H Pulse Rate from SpO2 Sensor Pulse Rhythm Pulse Strength Respiratory Rate 21 15 17 Respiratory Effort / Characteristics Respiratory Depth Respiratory Pattern Blood Pressure 109/83 98/76 L 107/78 Blood Pressure Mean 91 83 87 Pulse Oximetry 93 93 95 Oxygen Delivery Method Nebulizer Room Air Nasal Cannula Oxygen Flow Rate 1 Sepsis Recent Fever Within 48 Hours Sepsis New/Unexplained Change in Mental Status Sepsis Action Taken by Nursing 07/15/24 01:00 Temperature Temperature Source Pulse Rate 92 H Pulse Rate from SpO2 Sensor Pulse Rhythm Pulse Strength Respiratory Rate 14 Respiratory Effort / Characteristics Respiratory Depth Respiratory Pattern Blood Pressure 135/86 Blood Pressure Mean 119 Pulse Oximetry 91 Oxygen Delivery Method Nasal Cannula Oxygen Flow Rate 2 Sepsis Recent Fever Within 48 Hours Sepsis New/Unexplained Change in Mental Status Sepsis Action Taken by Nursing Laboratory Data 07/14/24 22:08 07/14/24 22:08 Lab Results 07/14/24 07/14/24 07/15/24 Range/Units 22:08 23:01 00:17 WBC 11.43 H (4.8-10.8) K/ul RBC 5.40 (4.20-5.40) M/uL Hgb 13.6 (12.0-16.0) g/dl Hct 44.8 (37.0-47.0) % MCV 83.0 (80.0-100.0) fL MCH 25.2 (25.0-34.0) pg MCHC 30.4 L (32.0-36.0) g/dL RDW Std Deviation 62.1 H (36.4-46.3) fL RDW Coeff of Malick 21.2 H (11.5-14.5) % Plt Count 273 (130-400) K/uL MPV 10.0 (9.4-12.4) fL Immature Gran % (Auto) 1.7 % Neut % (Auto) 77.8 % Lymph % (Auto) 15.0 % Eaton % (Auto) 4.9 % Eos % (Auto) 0.3 % Baso % (Auto) 0.3 % Neut # (Auto) 8.89 H (1.40-6.50) K/uL Lymph # (Auto) 1.72 (1.20-3.40) K/uL Eaton # (Auto) 0.56 (0.11-0.59) K/uL Eos # (Auto) 0.03 (0.00-0.50) K/uL Baso # (Auto) 0.04 (0.00-0.20) K/uL Immature Gran # (Auto) 0.19 (0.01-0.20) K/uL Polychromasia 2+ Anisocytosis Present Tear Drop Cells 1+ PT 11.4 (9.0-12.0) Seconds INR 1.1 (0.9-1.1) APTT 27 (21-31) Seconds PTT Ratio 1.0 VBG pH (7.36-7.41) VBG pCO2 (38-50) mmHg VBG pO2 mmHg VBG HCO3 mmol/L VBG O2 Saturation % VBG Base Excess mEq/L Sodium 135 L (136-145) mmol/L Potassium 4.7 (3.5-5.1) mmol/L Chloride 97 L (98-107) mmol/L Carbon Dioxide 32 (21-32) mmol/L Anion Gap 6 (3-11) BUN 16 (6-23) mg/dl Creatinine 1.00 (0.6-1.2) mg/dl Est Cr Clr Drug Dosing 59.2 ml/min eGFR 63.30 BUN/Creatinine Ratio 16.0 (10-20) Glucose 176 H (70-99(Fasting)) mg/dl Calcium 9.2 (8.6-10.3) mg/dl Magnesium 2.0 (1.7-2.4) mg/dl Total Bilirubin 0.3 (0.2-1.0) mg/dl AST 15 (13-39) U/L ALT 16 (7-52) U/L Alkaline Phosphatase 133 H (34-104) U/L Troponin I High Sens 15.9 H 14.3 H (0-14) pg/ml B-Natriuretic Peptide 80 (0-100) pg/ml Total Protein 6.5 (6.0-8.3) gm/dl Albumin 4.0 (3.4-5.0) gm/dl Globulin 2.5 (2.5-4.0) gm/dl Albumin/Globulin Ratio 1.6 (0.9-2) Procalcitonin 0.14 (0-0.5) ng/ml Adenovirus (PCR) Not Detected (NotDetected) B. pertussis DNA (PCR) Not Detected (NotDetected) B.parapertussis DNA PCR Not Detected (NotDetected) C. pneumoniae DNA (PCR) Not Detected (NotDetected) Coronavirus OC43 (PCR) Not Detected (NotDetected) Coronavirus HKU1 (PCR) Not Detected (NotDetected) Coronavirus 229E (PCR) Not Detected (NotDetected) SARS-CoV-2 (PCR) Not Detected (NotDetected) Coronavirus NL63 (PCR) Not Detected (NotDetected) Human Metapneumovir PCR Not Detected (NotDetected) Influenza Type A (PCR) Not Detected (NotDetected) Influenza Type B (PCR) Not Detected (NotDetected) M. pneumoniae (PCR) Not Detected (NotDetected) Parainfluenza 1 (PCR) Not Detected (NotDetected) Parainfluenza 2 (PCR) Not Detected (NotDetected) Parainfluenza 3 (PCR) Not Detected (NotDetected) Parainfluenza 4 (PCR) Not Detected (NotDetected) RSV (PCR) Not Detected (NotDetected) Entero/Rhino (PCR) Not Detected (NotDetected) 07/15/24 Range/Units 00:22 WBC (4.8-10.8) K/ul RBC (4.20-5.40) M/uL Hgb (12.0-16.0) g/dl Hct (37.0-47.0) % MCV (80.0-100.0) fL MCH (25.0-34.0) pg MCHC (32.0-36.0) g/dL RDW Std Deviation (36.4-46.3) fL RDW Coeff of Malick (11.5-14.5) % Plt Count (130-400) K/uL MPV (9.4-12.4) fL Immature Gran % (Auto) % Neut % (Auto) % Lymph % (Auto) % Eaton % (Auto) % Eos % (Auto) % Baso % (Auto) % Neut # (Auto) (1.40-6.50) K/uL Lymph # (Auto) (1.20-3.40) K/uL Eaton # (Auto) (0.11-0.59) K/uL Eos # (Auto) (0.00-0.50) K/uL Baso # (Auto) (0.00-0.20) K/uL Immature Gran # (Auto) (0.01-0.20) K/uL Polychromasia Anisocytosis Tear Drop Cells PT (9.0-12.0) Seconds INR (0.9-1.1) APTT (21-31) Seconds PTT Ratio VBG pH 7.41 (7.36-7.41) VBG pCO2 51 H (38-50) mmHg VBG pO2 46 mmHg VBG HCO3 32 mmol/L VBG O2 Saturation 76.8 % VBG Base Excess 6.3 mEq/L Sodium (136-145) mmol/L Potassium (3.5-5.1) mmol/L Chloride (98-107) mmol/L Carbon Dioxide (21-32) mmol/L Anion Gap (3-11) BUN (6-23) mg/dl Creatinine (0.6-1.2) mg/dl Est Cr Clr Drug Dosing ml/min eGFR BUN/Creatinine Ratio (10-20) Glucose (70-99(Fasting)) mg/dl Calcium (8.6-10.3) mg/dl Magnesium (1.7-2.4) mg/dl Total Bilirubin (0.2-1.0) mg/dl AST (13-39) U/L ALT (7-52) U/L Alkaline Phosphatase (34-104) U/L Troponin I High Sens (0-14) pg/ml B-Natriuretic Peptide (0-100) pg/ml Total Protein (6.0-8.3) gm/dl Albumin (3.4-5.0) gm/dl Globulin (2.5-4.0) gm/dl Albumin/Globulin Ratio (0.9-2) Procalcitonin (0-0.5) ng/ml Adenovirus (PCR) (NotDetected) B. pertussis DNA (PCR) (NotDetected) B.parapertussis DNA PCR (NotDetected) C. pneumoniae DNA (PCR) (NotDetected) Coronavirus OC43 (PCR) (NotDetected) Coronavirus HKU1 (PCR) (NotDetected) Coronavirus 229E (PCR) (NotDetected) SARS-CoV-2 (PCR) (NotDetected) Coronavirus NL63 (PCR) (NotDetected) Human Metapneumovir PCR (NotDetected) Influenza Type A (PCR) (NotDetected) Influenza Type B (PCR) (NotDetected) M. pneumoniae (PCR) (NotDetected) Parainfluenza 1 (PCR) (NotDetected) Parainfluenza 2 (PCR) (NotDetected) Parainfluenza 3 (PCR) (NotDetected) Parainfluenza 4 (PCR) (NotDetected) RSV (PCR) (NotDetected) Entero/Rhino (PCR) (NotDetected) Administered Medications Albuterol (Albut/Ipratrop 3mg/0.5mg Neb 3 Ml Vial) 3 ml NEB Q4R FLETCHER; Protocol Stop: 08/14/24 04:04 Last Admin: 07/15/24 04:25 Dose: Not Given Documented By: MW Discontinued Medications Albuterol (Albut/Ipratrop 3mg/0.5mg Neb 3 Ml Vial) 12 ml NEB ONE ONE; Protocol Stop: 07/14/24 22:56 Last Admin: 07/14/24 23:03 Dose: 12 ml Documented By: ETHAN Albuterol (Albut/Ipratrop 3mg/0.5mg Neb 3 Ml Vial) 3 ml NEB NOW STA; Protocol Stop: 07/15/24 00:46 Last Admin: 07/15/24 00:55 Dose: 3 ml Documented By: EMMANUEL Alprazolam (Alprazolam 0.5 Mg Tablet) 0.5 mg PO NOW STA Stop: 07/14/24 22:56 Last Admin: 07/14/24 23:02 Dose: 0.5 mg Documented By: ETHAN Doxycycline Hyclate (Doxycycline Hyclate 100 Mg Cap) 100 mg PO NOW STA Stop: 07/15/24 00:47 Last Admin: 07/15/24 00:54 Dose: 100 mg Documented By: EMMANUEL Methylprednisolone (Methylprednisolone 125 Mg/2 Ml Vial) 60 mg IV NOW STA Stop: 07/14/24 22:56 Last Admin: 07/14/24 23:02 Dose: 60 mg Documented By: ETHAN Imaging Data Radiologist's Impression: Chest CT 07/14/24 22:56 Exam(s): CT CHEST Without Contrast EXAM: CT Chest Without Intravenous Contrast CLINICAL HISTORY: SOB. TECHNIQUE: Axial computed tomography images of the chest without intravenous contrast. CTDI is 28 mGy and DLP is 936 mGy-cm. Automated exposure control was utilized for the study. A dose lowering technique was utilized adhering to the principles of ALARA. COMPARISON: CT chest without contrast dated 06/11/2024 FINDINGS: Lungs: No focal airspace consolidation with similar curvilinear changes at the lung bases. No mass. Pleural space: Unremarkable. No pneumothorax. No significant effusion. Heart: The cardiac chambers are normal in caliber. Extensive coronary artery calcification is noted. No significant pericardial effusion. Bones/joints: The lytic expansile area involving the anterior right fourth rib with internal chondroid appearing matrix is stable. No aggressive features or cortical destruction noted. There is interval callus formation involving the anterior margins of the fifth or seventh right ribs. No acute fracture. No dislocation. Soft tissues: Evaluation of the overlying soft tissues is somewhat limited by partial exclusion of the supra components. No definite acute abnormality identified. Vasculature: The unenhanced thoracic aorta is normal in caliber and is stable. Lymph nodes: Unremarkable. No enlarged lymph nodes. IMPRESSION: 1. No focal airspace consolidation with similar curvilinear presumed atelectatic changes at the lung bases. No pleural effusion or pneumothorax. 2. There is interval callus formation involving the anterior margins of the fifth or seventh right ribs. No interval no osseous acute traumatic injury identified. Electronically signed by: Tyree Newman MD 07/15/24 00:20 AM Discharge Plan Visit Data Chief Complaint: Shortness of Breath/Dyspnea Stated Complaint: SOB ED Provider: Zoila Dunlap ED Midlevel Provider: Alessandra Frankel Discharge Problem: Acute exacerbation of chronic obstructive airways disease Patient Disposition: Admitted As Inpatient Condition: Good Discharge Instructions Interventions: ED Discharge Assessment Last Done: 07/15/24 02:24
[2024-07-14] MEDS: methylPREDNISolone 125 MG/2 ML VIAL IV STA (23:02)
[2024-07-14] MEDS: ALPRAZolam 0.5 MG TABLET PO STA (23:02)
[2024-07-14] MEDS: ALBUT/IPRATROP 3MG/0.5MG NEB 3 ML VIAL NEB ONE (23:03)
[2024-07-14 23:18] LABS: Albumin Globulin Ratio 1.6 (0.9-2); Basophils # (auto) 0.04 K/uL (0.00-0.20); Basophils % (auto) 0.3 %; Bilirubin,Total 0.3 mg/dl (0.2-1.0); Calcium 9.2 mg/dl (8.6-10.3); Creatinine Clr Calc Pharmacy 59.2 ml/min; Eosinophils # (auto) 0.03 K/uL (0.00-0.50); Eosinophils % (auto) 0.3 %; Globulin 2.5 gm/dl (2.5-4.0); Hematocrit (blood only) 44.8 % (37.0-47.0); Hemoglobin 13.6 g/dl (12.0-16.0); Immature Granulocytes # (auto) 0.19 K/uL (0.01-0.20); Immature Granulocytes % (auto) 1.7 %; Lymphocytes # (auto) 1.72 K/uL (1.20-3.40); Mean Corpuscular Hemoglobin 25.2 pg (25.0-34.0); Mean Corpuscular Hgb Conc 30.4 g/dL (32.0-36.0); Monocytes # (auto) 0.56 K/uL (0.11-0.59); Monocytes % (auto) 4.9 %; Neutrophils # (auto) 8.89 K/uL (1.40-6.50); Neutrophils % (auto) 77.8 %; Platelet Count 273 K/uL (130-400); Potassium 4.7 mmol/L (3.5-5.1); RDW Coefficient of Variation 21.2 % (11.5-14.5); RDW Standard Deviation 62.1 fL (36.4-46.3); Total Protein 6.5 gm/dl (6.0-8.3); White Blood Count 11.43 K/ul (4.8-10.8)
[2024-07-14 23:26] LABS: Troponin I High Sensitivity 15.9 pg/ml (0-14)
[2024-07-14 23:35] LABS: Anisocytosis Present; Polychromasia 2+; Tear Drop Cells 1+
[2024-07-15] LABS: Adenovirus PCR Not Detected (NotDetected); Bordetella parapertussis PCR Not Detected (NotDetected); Bordetella pertussis PCR Not Detected (NotDetected); Chlamydia pneumoniae PCR Not Detected (NotDetected); Coronavirus 229E PCR Not Detected (NotDetected); Coronavirus CoV-2 (COVID19)PCR Not Detected (NotDetected); Coronavirus HKU1 PCR Not Detected (NotDetected); Coronavirus NL63 PCR Not Detected (NotDetected); Coronavirus OC43PCR Not Detected (NotDetected); Human Metapneumovirus PCR Not Detected (NotDetected); Influenza A PCR Not Detected (NotDetected); Influenza B PCR Not Detected (NotDetected); Mycoplasma pneumoniae PCR Not Detected (NotDetected); Parainfluenza Virus 1 PCR Not Detected (NotDetected); Parainfluenza Virus 2 PCR Not Detected (NotDetected); Parainfluenza Virus 3 PCR Not Detected (NotDetected); Parainfluenza Virus 4 PCR Not Detected (NotDetected); Respiratory Syncytial VirusPCR Not Detected (NotDetected); Rhinovirus/Enterovirus PCR Not Detected (NotDetected)
[2024-07-15 00:11] LABS: INR 1.1 (0.9-1.1); Partial Thromboplastin Time 27 Seconds (21-31); Prothrombin Time 11.4 Seconds (9.0-12.0)
--- NOTE | 2024-07-15 00:21 | CT Scan Report ---
Exam(s): CT CHEST Without Contrast EXAM: CT Chest Without Intravenous Contrast CLINICAL HISTORY: SOB. TECHNIQUE: Axial computed tomography images of the chest without intravenous contrast. CTDI is 28 mGy and DLP is 936 mGy-cm. Automated exposure control was utilized for the study. A dose lowering technique was utilized adhering to the principles of ALARA. COMPARISON: CT chest without contrast dated 06/11/2024 FINDINGS: Lungs: No focal airspace consolidation with similar curvilinear changes at the lung bases. No mass. Pleural space: Unremarkable. No pneumothorax. No significant effusion. Heart: The cardiac chambers are normal in caliber. Extensive coronary artery calcification is noted. No significant pericardial effusion. Bones/joints: The lytic expansile area involving the anterior right fourth rib with internal chondroid appearing matrix is stable. No aggressive features or cortical destruction noted. There is interval callus formation involving the anterior margins of the fifth or seventh right ribs. No acute fracture. No dislocation. Soft tissues: Evaluation of the overlying soft tissues is somewhat limited by partial exclusion of the supra components. No definite acute abnormality identified. Vasculature: The unenhanced thoracic aorta is normal in caliber and is stable. Lymph nodes: Unremarkable. No enlarged lymph nodes. IMPRESSION: 1. No focal airspace consolidation with similar curvilinear presumed atelectatic changes at the lung bases. No pleural effusion or pneumothorax. 2. There is interval callus formation involving the anterior margins of the fifth or seventh right ribs. No interval no osseous acute traumatic injury identified. Electronically signed by: Tyree Newman MD 07/15/24 00:20 AM
[2024-07-15 00:29] LABS: Base Excess VBG 6.3 mEq/L; HCO3 VBG 32 mmol/L; Oxygen Saturation VBG 76.8 %; PCO2 VBG 51 mmHg (38-50); PO2 VBG 46 mmHg; pH VBG 7.41 (7.36-7.41)
[2024-07-15] MEDS: DOXYCYCLINE HYCLATE 100 MG CAP PO STA (00:54)
[2024-07-15] MEDS: ALBUT/IPRATROP 3MG/0.5MG NEB 3 ML VIAL NEB STA (00:55)
--- NOTE | 2024-07-15 02:29 | History & Physical Report ---
Date of Service July 15, 2024 Assessment & Plan (1) Allergic asthma: (2) COPD (chronic obstructive pulmonary disease): (3) DM II (diabetes mellitus, type II), controlled: (4) Thrush of mouth and esophagus: Plan 64-year-old female with history of chronic hypoxic/hypercapnic respiratory failure, diabetes, COPD and allergic asthma presenting with 1 week of progressive shortness of breath. Patient reports that her home inhalers and therapies have not been working. She denies fever, chills or other infectious symptoms. Denies allergic symptoms. patient improved after administration of albuterol nebs in the ER. #Acute exacerbation of COPD. Observation to medical telemetry DuoNebs every 4 hours Albuterol every 2 hours as needed Continue budesonide Continue Trelegy or formulary equivalent Continue supplemental O2 as needed Incentive spirometry and flutter valve Continue patient's home dose of prednisone 15 mg a day Will avoid additional IV steroids Patient is working with pulmonary for insurance approval for [employer]. Of note, patient would greatly benefit from this medication as she has had long- term exposure to systemic steroids and is at high risk for complications from this. She is cushingoid in appearance. Encourage smoking cessation #Diabetes Lantus 25 units twice daily Insulin sliding scale Blood sugar goal 110-140 while inpatient #Anxiety/mental health Continue Seroquel 100 mg p.o. nightly Continue alprazolam 0.5 mg p.o. up to 3 times a day as needed. Patient reports that she takes his medications at 0600 hrs. 1200 hrs. and 1700 hrs. Continue citalopram 20 mg p.o. nightly #History of opioid dependence Continue buprenorphine/naloxone 8 mg film daily. Dose confirmed by independent review of PDMP #Heart failure with preserved ejection fractionpatient appears to be well compensated at present with no report of worsening edema, orthopnea or weight gain continue spironolactone 100 mg p.o. daily Continue torsemide 100 mg p.o. daily Continue Diamox to 50 mg p.o. daily #ELEUTERIO/obesity hypoventilation syndrome Continue CPAP nightly #Thrush Continue nystatin twice daily History of Present Illness Chief Complaint: shortness of breath Primary Care Provider: Radha Barboza Janae Monzon is a 64-year-old female well-known to the hospitalist service with history of chronic hypoxic hypercapnic respiratory failure, COPD, anxiety presenting from home with progressive shortness of breath. Patient reports that over the last week she has become more and more short of breath and experiencing more wheezing. She has been trying to manage at home with her inhalers. She denies chest pain, palpitations, edema, orthopnea. Denies fevers, chills, purulent sputum. Denies allergy symptoms itchy eyes, watery eyes or runny nose. No additional complaints at this time Upon arrival to the ER patient with adequate oxygenation, no respiratory distre ss ER course: Solu-Medrol 60 mg IV Alprazolam 0.5 mg p.o. Albuterol 12 DuoNebs Doxycycline 100 mg p.o. Albuterol 3 mL neb Allergies Allergy/AdvReac Type Severity Reaction Status Date / Time codeine Allergy Severe Anaphylaxis Verified 06/23/24 15:46 Iodinated Contrast Media Allergy Severe Anaphylaxis Verified 06/23/24 15:46 shellfish derived Allergy Severe Anaphylaxis Verified 06/23/24 15:46 tramadol Allergy Intermediate ITCHINESS Verified 06/23/24 15:46 pollen extracts Allergy Mild Congested Verified 06/23/24 15:46 iohexol Allergy Unknown CAN'T Verified 06/23/24 15:46 REMEMBER diphenhydramine AdvReac Severe Anxiety Verified 06/23/24 15:46 [From Benadryl] promethazine AdvReac Intermediate Anxiety Verified 06/23/24 15:46 Home Medications Medication Instructions Recorded Confirmed Type levalbuterol HCl 1.25 mg/3 mL 1.25 mg inhalation Q8H PRN 01/16/23 07/15/24 History solution for nebulization Shortness Of Breath Or Wheezing fluticasone propionate 50 1 spray intranasal BID nasal 09/15/23 07/15/24 Rx mcg/actuation nasal congestion #0 mL spray,suspension (Flonase Allergy Relief) ipratropium bromide 0.02 % 3 ml continuous nebulization QID 10/17/23 07/15/24 Rx solution for inhalation PRN shortness of breath #75 mL calcium polycarbophil 625 mg 625 mg PO QAM #30 tabs 10/30/23 07/15/24 Rx tablet (Fiber (calcium polycarbophil)) insulin aspart U-100 100 unit/mL 10 unit subcut TIDM 11/07/23 07/15/24 History (3 mL) subcutaneous pen (Novolog FlexPen U-100 Insulin aspart) ascorbic acid (vitamin C) 500 mg 1,000 mg (2 x 500 mg) PO DAILY #60 01/02/24 07/15/24 Rx tablet (Vitamin C) tabs alprazolam 0.5 mg tablet 0.5 mg PO BID PRN ANXIETY 02/28/24 07/15/24 History insulin glargine 100 unit/mL (3 50 unit subcut QAM 02/28/24 07/15/24 History mL) subcutaneous pen (Lantus Solostar U-100 Insulin) ondansetron 4 mg disintegrating 4 mg PO Q8 PRN NAUSEA/VOMITING 02/28/24 07/15/24 History tablet colchicine 0.6 mg capsule 0.6 mg PO DAILY PRN joint pain #30 03/01/24 07/15/24 Rx caps allopurinol 300 mg tablet 300 mg PO DAILY 03/23/24 07/15/24 History levalbuterol tartrate 45 2 puff inhalation Q6H PRN WHEEZE 03/23/24 07/15/24 History mcg/actuation aerosol inhaler quetiapine 100 mg tablet 100 mg PO HS 03/23/24 07/15/24 History silver sulfadiazine 1 % topical 1 applic topical BID 03/23/24 07/15/24 History cream potassium chloride 20 mEq 40 meq (2 x 20 mEq) PO DAILY #0 03/28/24 07/15/24 Rx tablet,extended tabs release(part/cryst) (Klor-Con M) citalopram 20 mg tablet 20 mg PO HS 04/21/24 07/15/24 History guaifenesin 600 mg tablet, 600 mg PO Q12 #14 tabs 04/26/24 07/15/24 Rx extended release 12 hr (Mucinex) torsemide 100 mg tablet 100 mg PO QAM #30 tabs 04/26/24 07/15/24 Rx nystatin 100,000 unit/mL oral 10 ml PO BID #250 mL 05/23/24 07/15/24 Rx suspension budesonide 0.25 mg/2 mL suspension 0.25 mg (2 mL) inhalation BID #60 05/24/24 07/15/24 Rx for nebulization mL prednisone 5 mg tablet 15 mg (3 x 5 mg) PO DAILY 90 days 05/24/24 07/15/24 Rx #270 tabs dupilumab 300 mg/2 mL subcutaneous 300 mg (2 mL) subcut .every other 06/02/24 07/15/24 Rx pen injector (Dupixent) week #4 mL dupilumab 300 mg/2 mL subcutaneous 600 mg (4 mL) subcut ONCE #4 mL 06/02/24 07/15/24 Rx pen injector (Dupixent) acetazolamide 250 mg tablet 250 mg PO BID17 #60 tabs 06/09/24 07/15/24 Rx spironolactone 100 mg tablet 100 mg PO BID17 #60 tabs 06/09/24 07/15/24 Rx albuterol sulfate 90 mcg/actuation 2 puff inhalation Q4H PRN 07/12/24 07/15/24 Rx aerosol inhaler Shortness Of Breath Or Wheezing #8.5 grams fluticasone fur. 200 mcg-umeclid 1 ea inhalation QAM #60 ea 07/12/24 07/15/24 Rx 62.5 mcg-vilant 25 mcg inhalat.powder (Trelegy Ellipta) Past Med/Surg History Problem List Vitamin D deficiency Hyperglycemia due to diabetes mellitus (Acute) Chronic hypercapnic respiratory failure Bone marrow transplant status Bronchiectasis Allergic asthma Lower extremity edema Generalized anxiety disorder DM II (diabetes mellitus, type II), controlled COPD (chronic obstructive pulmonary disease) Dyspnea D-dimer, elevated (Acute) Palpitations (Acute) Chest pain (Acute) Bilateral knee pain CHF exacerbation (Acute) COPD exacerbation (Acute) Chest pain Right knee pain Acute exacerbation of chronic obstructive pulmonary disease (Acute) Leukocytosis (Acute) Acute hypokalemia (Acute) Diabetes Hypokalemia Tobacco abuse counseling Moderate persistent asthma Constipation Acute bronchitis Pulmonary vascular congestion Medical History B12 deficiency Pneumonia COPD exacerbation Anxiety Thrush of mouth and esophagus Heart failure with preserved ejection fraction Elevated brain natriuretic peptide (BNP) level Acute dyspnea Acute hypoxic respiratory failure Elevated troponin COVID-19 Normocytic hypochromic anemia Failure of outpatient treatment Bilateral edema of lower extremity Gout Tobacco use disorder Hematochezia History of pulmonary embolism Michela esophagitis Acute and chronic respiratory failure with hypoxia Chronic anticoagulation Obesity hypoventilation syndrome Multiple myeloma Last chemotherapy 2016 Follows with medical oncology in [facility] History of pulmonary embolism Acute exacerbation of chronic obstructive pulmonary disease Acute heart failure with preserved ejection fraction (HFpEF) Acute exacerbation of chronic obstructive pulmonary disease Tobacco abuse Opiate dependence Asthma Surgical History No pertinent past surgical history Family History Sister Asthma Social History Smoking Status: Current every day smoker Tobacco Type: Cigarettes Age Started Using Tobacco: 15; Cigarettes Per Day: 2-3; Second Hand Exposure: No; Do You Dip or Chew Tobacco: No; Tobacco Cessation Education Requested by Patient: No Hx Alcohol Use: No Hx Substance Use: Yes Last Used Substance: Days (ago) Last Used Substance Other:: prescribed daily Substance Use Type Other:: suboxone- chronic pain Preferred Language: Luxembourgish Communication Ability: Effective Manager Winter Required: No Beliefs That Will Affect Care: None Current Living Situation: Other Current Living Situation Comment: lives with sister Other Information That Helps Us Care for You: No Feels Safe at Home: Yes Safety Concerns: Feels Safe At This Time Assistive Devices: CPAP, Denture - Upper, Denture - Lower, Glasses and Oxygen - Continuous Assistive Devices Comment: glasses with patient Review of Systems Review of Systems: All systems reviewed & are unremarkable except as noted in HPI & below Physical Exam Physical Exam: General: patient resting comfortably, NAD, non-toxic in appearance, AA&O x 4, cushingoid with moran facies and buffalo hump Skin: warm, dry, intact, no rashes or lesions HEENT: NC/AT, PERRL, EOMI, anicteric sclera, conjunctiva without injection, external ear normal to inspection and nontender, nares patent, moist mucus membranes, dentition intact, no oropharyngeal lesions, neck supple, trachea midline, no LAD, no thyromegaly, no JVD Heart: +S1/S2, regular, no m/r/g Lungs: equal air entry bilaterally, mildly diminished airflow bilaterally, no rales/rhonchi/wheezes Abd: +BS, soft, NT/ND, no masses/organomegaly/ascites Ext: warm, 2+ pulses in UE/LE bilaterally, no clubbing/cyanosis, 1+ pitting edema bilateral lower extremities with chronic venous stasis changes Neuro: nonfocal, patient AA&O x 4, speech intact, no facial droop, moving all extremities on command with equal strength 5/5 Results & Data Results & Data Vital Signs (Past 12 Hours) Vital Signs Temp Pulse Resp BP Pulse Ox O2 Del Method O2 Flow Rate 07/15/24 02:24 Nasal Cannula 2 07/15/24 02:11 97 H 07/15/24 02:00 96 H 20 126/82 94 Room Air 07/15/24 01:00 92 H 14 135/86 91 Nasal Cannula 2 07/15/24 00:30 96 H 17 107/78 95 Nasal Cannula 1 07/15/24 00:12 96 H 15 98/76 L 93 Room Air 07/14/24 23:39 94 H 21 109/83 93 Nebulizer 07/14/24 22:33 98 H 19 91 07/14/24 22:04 100 H 07/14/24 21:58 96 Room Air 07/14/24 21:58 37 C 103 H 19 118/81 97 Room Air 07/14/24 21:57 118/81 96 Laboratory Results Laboratory Results WBC 11.43 K/ul (4.8-10.8) H 07/14/24 22:08 RBC 5.40 M/uL (4.20-5.40) 07/14/24 22:08 Hgb 13.6 g/dl (12.0-16.0) 07/14/24 22:08 Hct 44.8 % (37.0-47.0) 07/14/24 22:08 MCV 83.0 fL (80.0-100.0) 07/14/24 22:08 MCH 25.2 pg (25.0-34.0) 07/14/24 22:08 MCHC 30.4 g/dL (32.0-36.0) L 07/14/24 22:08 RDW Std Deviation 62.1 fL (36.4-46.3) H 07/14/24 22:08 RDW Coeff of Malick 21.2 % (11.5-14.5) H 07/14/24 22:08 Plt Count 273 K/uL (130-400) 07/14/24 22:08 MPV 10.0 fL (9.4-12.4) 07/14/24 22:08 Immature Gran % (Auto) 1.7 % 07/14/24 22:08 Neut % (Auto) 77.8 % 07/14/24 22:08 Lymph % (Auto) 15.0 % 07/14/24 22:08 Ada % (Auto) 4.9 % 07/14/24 22:08 Eos % (Auto) 0.3 % 07/14/24 22:08 Baso % (Auto) 0.3 % 07/14/24 22:08 Neut # (Auto) 8.89 K/uL (1.40-6.50) H 07/14/24 22:08 Lymph # (Auto) 1.72 K/uL (1.20-3.40) 07/14/24 22:08 Ada # (Auto) 0.56 K/uL (0.11-0.59) 07/14/24 22:08 Eos # (Auto) 0.03 K/uL (0.00-0.50) 07/14/24 22:08 Baso # (Auto) 0.04 K/uL (0.00-0.20) 07/14/24 22:08 Immature Gran # (Auto) 0.19 K/uL (0.01-0.20) 07/14/24 22:08 Polychromasia 2+ 07/14/24 22:08 Anisocytosis Present 07/14/24 22:08 Tear Drop Cells 1+ 07/14/24 22:08 PT 11.4 Seconds (9.0-12.0) 07/14/24 22:08 INR 1.1 (0.9-1.1) 07/14/24 22:08 APTT 27 Seconds (21-31) 07/14/24 22:08 PTT Ratio 1.0 07/14/24 22:08 VBG pH 7.41 (7.36-7.41) 07/15/24 00:22 VBG pCO2 51 mmHg (38-50) H 07/15/24 00:22 VBG pO2 46 mmHg 07/15/24 00:22 VBG HCO3 32 mmol/L 07/15/24 00:22 VBG O2 Saturation 76.8 % 07/15/24 00:22 VBG Base Excess 6.3 mEq/L 07/15/24 00:22 Sodium 135 mmol/L (136-145) L 07/14/24 22:08 Potassium 4.7 mmol/L (3.5-5.1) 07/14/24 22:08 Chloride 97 mmol/L (98-107) L 07/14/24 22:08 Carbon Dioxide 32 mmol/L (21-32) 07/14/24 22:08 Anion Gap 6 (3-11) 07/14/24 22:08 BUN 16 mg/dl (6-23) 07/14/24 22:08 Creatinine 1.00 mg/dl (0.6-1.2) 07/14/24 22:08 Est Cr Clr Drug Dosing 59.2 ml/min 07/14/24 22:08 eGFR 63.30 07/14/24 22:08 BUN/Creatinine Ratio 16.0 (10-20) 07/14/24 22:08 Glucose 176 mg/dl (70-99(Fasting)) H 07/14/24 22:08 Calcium 9.2 mg/dl (8.6-10.3) 07/14/24 22:08 Magnesium 2.0 mg/dl (1.7-2.4) 07/14/24 22:08 Total Bilirubin 0.3 mg/dl (0.2-1.0) 07/14/24 22:08 AST 15 U/L (13-39) 07/14/24 22:08 ALT 16 U/L (7-52) 07/14/24 22:08 Alkaline Phosphatase 133 U/L (34-104) H 07/14/24 22:08 Troponin I High Sens 14.3 pg/ml (0-14) H 07/15/24 00:17 B-Natriuretic Peptide 80 pg/ml (0-100) 07/14/24 22:08 Total Protein 6.5 gm/dl (6.0-8.3) 07/14/24 22:08 Albumin 4.0 gm/dl (3.4-5.0) 07/14/24 22:08 Globulin 2.5 gm/dl (2.5-4.0) 07/14/24 22:08 Albumin/Globulin Ratio 1.6 (0.9-2) 07/14/24 22:08 Procalcitonin 0.14 ng/ml (0-0.5) 07/14/24 22:08 Adenovirus (PCR) Not Detected (NotDetected) 07/14/24 23:01 B. pertussis DNA (PCR) Not Detected (NotDetected) 07/14/24 23:01 B.parapertussis DNA PCR Not Detected (NotDetected) 07/14/24 23:01 C. pneumoniae DNA (PCR) Not Detected (NotDetected) 07/14/24 23:01 Coronavirus OC43 (PCR) Not Detected (NotDetected) 07/14/24 23:01 Coronavirus HKU1 (PCR) Not Detected (NotDetected) 07/14/24 23:01 Coronavirus 229E (PCR) Not Detected (NotDetected) 07/14/24 23:01 SARS-CoV-2 (PCR) Not Detected (NotDetected) 07/14/24 23:01 Coronavirus NL63 (PCR) Not Detected (NotDetected) 07/14/24 23:01 Human Metapneumovir PCR Not Detected (NotDetected) 07/14/24 23:01 Influenza Type A (PCR) Not Detected (NotDetected) 07/14/24 23:01 Influenza Type B (PCR) Not Detected (NotDetected) 07/14/24 23:01 M. pneumoniae (PCR) Not Detected (NotDetected) 07/14/24 23:01 Parainfluenza 1 (PCR) Not Detected (NotDetected) 07/14/24 23:01 Parainfluenza 2 (PCR) Not Detected (NotDetected) 07/14/24 23:01 Parainfluenza 3 (PCR) Not Detected (NotDetected) 07/14/24 23:01 Parainfluenza 4 (PCR) Not Detected (NotDetected) 07/14/24 23:01 RSV (PCR) Not Detected (NotDetected) 07/14/24 23:01 Entero/Rhino (PCR) Not Detected (NotDetected) 07/14/24 23:[address] 07/14/24 22:56 Exam(s): CT CHEST Without Contrast EXAM: CT Chest Without Intravenous Contrast CLINICAL HISTORY: SOB. TECHNIQUE: Axial computed tomography images of the chest without intravenous contrast. CTDI is 28 mGy and DLP is 936 mGy-cm. Automated exposure control was utilized for the study. A dose lowering technique was utilized adhering to the principles of ALARA. COMPARISON: CT chest without contrast dated 06/11/2024 FINDINGS: Lungs: No focal airspace consolidation with similar curvilinear changes at the lung bases. No mass. Pleural space: Unremarkable. No pneumothorax. No significant effusion. Heart: The cardiac chambers are normal in caliber. Extensive coronary artery calcification is noted. No significant pericardial effusion. Bones/joints: The lytic expansile area involving the anterior right fourth rib with internal chondroid appearing matrix is stable. No aggressive features or cortical destruction noted. There is interval callus formation involving the anterior margins of the fifth or seventh right ribs. No acute fracture. No dislocation. Soft tissues: Evaluation of the overlying soft tissues is somewhat limited by partial exclusion of the supra components. No definite acute abnormality identified. Vasculature: The unenhanced thoracic aorta is normal in caliber and is stable. Lymph nodes: Unremarkable. No enlarged lymph nodes. IMPRESSION: 1. No focal airspace consolidation with similar curvilinear presumed atelectatic changes at the lung bases. No pleural effusion or pneumothorax. 2. There is interval callus formation involving the anterior margins of the fifth or seventh right ribs. No interval no osseous acute traumatic injury identified. Electronically signed by: Tyree Newman MD 07/15/24 00:20 AM PG Care Time/CCT Total # of Minutes Spent Total Time Spent with Patient: Total time spent is greater than 50% in coordination of care (as documented) at patient's floor/unit and/or counseling patient: Coding Level of Care Code 99518 INT INP/OBS CARE 3/75MIN Diagnoses Severe persistent extrinsic asthma without complication J45.50 Asthma severity: severe Asthma persistence: persistent Asthma complication type: uncomplicated COPD (chronic obstructive pulmonary disease) J44.9 COPD type: unspecified COPD DM II (diabetes mellitus, type II), controlled E11.9 Thrush of mouth and esophagus B37.81; B37.0 (1) Allergic asthma Asthma severity: severe Asthma persistence: persistent Asthma complication type: uncomplicated Qualified Code(s): J45.50 - Severe persistent asthma, uncomplicated (2) COPD (chronic obstructive pulmonary disease) COPD type: unspecified COPD Qualified Code(s): J44.9 - Chronic obstructive pulmonary disease, unspecified
[2024-07-15] MEDS ORDERED: ONDANSETRON INJ 2 MG/ML 2 ML VIAL IV PRN (04:05)
[2024-07-15] MEDS ORDERED: ALBUTEROL 0.083% NEBU SOLN 3 ML VIAL NEB PRN (04:10)
[2024-07-15] MEDS: ALBUT/IPRATROP 3MG/0.5MG NEB 3 ML VIAL NEB SCH (04:25)
[2024-07-15] MEDS ORDERED: LEVALBUTEROL 1.25 MG/3 ML NEB INH PRN (05:15)
[2024-07-15] MEDS ORDERED: DEXTROSE 50% 50 ML SYRINGE IV PRN (05:26)
[2024-07-15] MEDS ORDERED: GLUCAGON FOR INJ 1 MG VIAL SQ PRN (05:26)
[2024-07-15] MEDS ORDERED: GLUCOSE 40% GEL 15 GM TUBE PO PRN (05:26)
[2024-07-15] MEDS ORDERED: CARBOHYDRATES FOR HYPOGLYCEMIA PO PRN (05:26)
[2024-07-15] MEDS ORDERED: GLUCOSE 10 TAB/TUBE PO PRN (05:26)
[2024-07-15] MEDS: BUDESONIDE 0.25 MG/2 ML VIAL (PULMICORT) INH SCH (07:17)
[2024-07-15] MEDS: BUPRENORPHINE/NALOXONE 8/2 MG TAB SL SCH (08:08)
[2024-07-15] MEDS: acetaZOLAMIDE 250 MG TAB PO SCH (08:09)
[2024-07-15] MEDS: FLUTICASONE PROPIONATE NA SPR 16 GM BTL SCH (08:09)
[2024-07-15] MEDS: allopurinoL 300 MG TAB PO SCH (08:09)
[2024-07-15] MEDS: FLUTICASONE FUROATE 200MCG 14 PUFFS/INHALER INH SCH (08:09)
[2024-07-15] MEDS: TORSEMIDE 100 MG TAB PO SCH (08:10)
[2024-07-15] MEDS: guaiFENesin 600 MG TABCR PO SCH (08:10)
[2024-07-15] MEDS: predniSONE 5 MG TAB PO SCH (08:10)
[2024-07-15] MEDS: NYSTATIN SUSP 500,000 U/5 ML UDC PO SCH (08:10)
[2024-07-15] MEDS: SPIRONOLACTONE 100 MG TAB PO SCH (08:10)
[2024-07-15] MEDS: UMECLIDINIUM/VILANTEROL 62.5/25MCG 7 PUFFS/INHALER INH SCH (08:15)
[2024-07-15] MEDS: LANTUS PER UNIT CHARGE SQ SCH (08:17)
[2024-07-15] MEDS: ALPRAZolam 0.5 MG TABLET PO PRN (08:22)
[2024-07-15] MEDS ORDERED: NON-FORMULARY MEDICATION (Fluticasone-Umeclidin-Vilanter [Trelegy Ellipta] 200-62.5-25 mcg INH SCH (09:00)
[2024-07-15] MEDS: INSULIN ASPART PER UNIT CHARGE SC SCH (09:04)
--- NOTE | 2024-07-15 17:06 | Pulmonary Consultation ---
Date of Consultation July 15, 2024 Assessment & Plan (1) Asthma-COPD overlap syndrome: (2) Moderate persistent asthma: (3) Obesity hypoventilation syndrome: (4) Multiple myeloma: Multiple myeloma remission status: unspecified Qualified Code(s): C90.00 - Multiple myeloma not having achieved remission (5) Tobacco abuse: Plan CT chest 07/14/2024 personally reviewed: Minimal dependent atelectasis bilateral lower lobes No significant mediastinal lymphadenopathy Spirometry 03/16/2024: Severe obstructive lung dysfunction FVC 1.60 L 56%, FEV1 1.04 L 46%, FEV1/FVC 64% 2D echo 07/28/2023: EF 60-65%, RV hypertrophy mild, normal systolic function -- Asthma COPD overlap syndrome BNP 80 Procalcitonin 0.14 On Trelegy 200 Outpatient infectious waste technician is also working on getting patient Dupixent Absolute eosinophil count 30 on 07/14/2024 --ELEUTERIO On BiPAP at home Continue with the same setting Plan: Given the chest congestion and difficulty bringing up the phlegm, I am going to add hypertonic saline nebulized to her regimen Will also change inhalers to nebulized medication while she is in the hospital Consideration of adding 7% saline and Mucomyst on discharge could also be thought of Please note the above document was generated using voice recognition software. It may contain grammatical, syntax or spelling errors.Any formal questions or concerns about the content, text or information contained within the body of this dictation should be directly addressed to the provider for clarification. History of Present Illness Attending Physician: Rico Varghese History of Present Illness 64-year-old female presented to the hospital for shortness of breath Past medical history: ELEUTERIO, HFpEF, anxiety, depression, multiple myeloma, active smoker Pulmonary consulted for her history of asthma-COPD overlap syndrome Patient was recently seen by David Howell in the outpatient setting where she was given antibiotic as well as prednisone She was still not feeling well and that is how she ended up to the hospital At the time of examination she stated that she is feeling better compared to when he came to the ER Does complain of significant cough and having difficulty bringing up Does have chest congestion Denies any fever or chills No hemoptysis No abdominal pain She says she is compliant with her Trelegy and uses on a daily basis She is compliant with her BiPAP at night as well No dysuria or diarrhea No unusual headache or blurry vision Family history of lung cancer in maternal side Social history: Approximately [id number] smoking history, still smoking approximately 3 cigarettes on a daily basis Allergies Allergy/AdvReac Type Severity Reaction Status Date / Time codeine Allergy Severe Anaphylaxis Verified 06/23/24 15:46 Iodinated Contrast Media Allergy Severe Anaphylaxis Verified 06/23/24 15:46 shellfish derived Allergy Severe Anaphylaxis Verified 06/23/24 15:46 tramadol Allergy Intermediate ITCHINESS Verified 06/23/24 15:46 pollen extracts Allergy Mild Congested Verified 06/23/24 15:46 iohexol Allergy Unknown CAN'T Verified 06/23/24 15:46 REMEMBER diphenhydramine AdvReac Severe Anxiety Verified 06/23/24 15:46 [From Benadryl] promethazine AdvReac Intermediate Anxiety Verified 06/23/24 15:46 Home Medications Medication Instructions Recorded Confirmed Type levalbuterol HCl 1.25 mg/3 mL 1.25 mg inhalation Q8H PRN 01/16/23 07/15/24 History solution for nebulization Shortness Of Breath Or Wheezing fluticasone propionate 50 1 spray intranasal BID nasal 09/15/23 07/15/24 Rx mcg/actuation nasal congestion #0 mL spray,suspension (Flonase Allergy Relief) ipratropium bromide 0.02 % 3 ml continuous nebulization QID 10/17/23 07/15/24 Rx solution for inhalation PRN shortness of breath #75 mL calcium polycarbophil 625 mg 625 mg PO QAM #30 tabs 10/30/23 07/15/24 Rx tablet (Fiber (calcium polycarbophil)) insulin aspart U-100 100 unit/mL 10 unit subcut TIDM 11/07/23 07/15/24 History (3 mL) subcutaneous pen (Novolog FlexPen U-100 Insulin aspart) ascorbic acid (vitamin C) 500 mg 1,000 mg (2 x 500 mg) PO DAILY #60 01/02/24 07/15/24 Rx tablet (Vitamin C) tabs alprazolam 0.5 mg tablet 0.5 mg PO BID PRN ANXIETY 02/28/24 07/15/24 History insulin glargine 100 unit/mL (3 50 unit subcut QAM 02/28/24 07/15/24 History mL) subcutaneous pen (Lantus Solostar U-100 Insulin) ondansetron 4 mg disintegrating 4 mg PO Q8 PRN NAUSEA/VOMITING 02/28/24 07/15/24 History tablet colchicine 0.6 mg capsule 0.6 mg PO DAILY PRN joint pain #30 03/01/24 07/15/24 Rx caps allopurinol 300 mg tablet 300 mg PO DAILY 03/23/24 07/15/24 History levalbuterol tartrate 45 2 puff inhalation Q6H PRN WHEEZE 03/23/24 07/15/24 History mcg/actuation aerosol inhaler quetiapine 100 mg tablet 100 mg PO HS 03/23/24 07/15/24 History silver sulfadiazine 1 % topical 1 applic topical BID 03/23/24 07/15/24 History cream potassium chloride 20 mEq 40 meq (2 x 20 mEq) PO DAILY #0 03/28/24 07/15/24 Rx tablet,extended tabs release(part/cryst) (Klor-Con M) citalopram 20 mg tablet 20 mg PO HS 04/21/24 07/15/24 History guaifenesin 600 mg tablet, 600 mg PO Q12 #14 tabs 04/26/24 07/15/24 Rx extended release 12 hr (Mucinex) torsemide 100 mg tablet 100 mg PO QAM #30 tabs 04/26/24 07/15/24 Rx nystatin 100,000 unit/mL oral 10 ml PO BID #250 mL 05/23/24 07/15/24 Rx suspension budesonide 0.25 mg/2 mL suspension 0.25 mg (2 mL) inhalation BID #60 05/24/24 07/15/24 Rx for nebulization mL prednisone 5 mg tablet 15 mg (3 x 5 mg) PO DAILY 90 days 05/24/24 07/15/24 Rx #270 tabs dupilumab 300 mg/2 mL subcutaneous 300 mg (2 mL) subcut .every other 06/02/24 07/15/24 Rx pen injector (Dupixent) week #4 mL dupilumab 300 mg/2 mL subcutaneous 600 mg (4 mL) subcut ONCE #4 mL 06/02/24 07/15/24 Rx pen injector (Dupixent) acetazolamide 250 mg tablet 250 mg PO BID17 #60 tabs 06/09/24 07/15/24 Rx spironolactone 100 mg tablet 100 mg PO BID17 #60 tabs 06/09/24 07/15/24 Rx albuterol sulfate 90 mcg/actuation 2 puff inhalation Q4H PRN 07/12/24 07/15/24 Rx aerosol inhaler Shortness Of Breath Or Wheezing #8.5 grams fluticasone fur. 200 mcg-umeclid 1 ea inhalation QAM #60 ea 07/12/24 07/15/24 Rx 62.5 mcg-vilant 25 mcg inhalat.powder (Trelegy Ellipta) Patient History Medical History B12 deficiency Pneumonia COPD exacerbation Anxiety Thrush of mouth and esophagus Heart failure with preserved ejection fraction Elevated brain natriuretic peptide (BNP) level Acute dyspnea Acute hypoxic respiratory failure Elevated troponin COVID-19 Normocytic hypochromic anemia Failure of outpatient treatment Bilateral edema of lower extremity Gout Tobacco use disorder Hematochezia History of pulmonary embolism Michela esophagitis Acute and chronic respiratory failure with hypoxia Chronic anticoagulation Obesity hypoventilation syndrome Multiple myeloma Last chemotherapy 2016 Follows with medical oncology in [facility] History of pulmonary embolism Acute exacerbation of chronic obstructive pulmonary disease Acute heart failure with preserved ejection fraction (HFpEF) Acute exacerbation of chronic obstructive pulmonary disease Tobacco abuse Opiate dependence Asthma Surgical History No pertinent past surgical history Family History Sister Asthma Social History Smoking Status: Current every day smoker Tobacco Type: Cigarettes Age Started Using Tobacco: 15; Cigarettes Per Day: 2-3; Second Hand Exposure: No; Do You Dip or Chew Tobacco: No; Tobacco Cessation Education Requested by Patient: No Hx Alcohol Use: No Hx Substance Use: Yes Last Used Substance: Days (ago) Last Used Substance Other:: prescribed daily Substance Use Type Other:: suboxone- chronic pain Preferred Language: [place] Communication Ability: Effective Shirt Bander Required: No Beliefs That Will Affect Care: None Current Living Situation: Other Current Living Situation Comment: lives with sister Other Information That Helps Us Care for You: No Feels Safe at Home: Yes Safety Concerns: Feels Safe At This Time Assistive Devices: Oxygen - Continuous and Other Assistive Devices Comment: glasses with patient Review of Systems 2 Review of Systems: All systems reviewed & are unremarkable except as noted in HPI & below Physical Exam 2 Physical Exam: Constitutional: No acute distress HEENT: EOMI, PERRLA, upper airway wheezing Respiratory system: Decreased air entry bilaterally, no rhonchi, no crackles, minimal expiratory wheeze bilaterally CVS: S1-S2 positive, no murmurs or gallops Abdomen: Soft, nontender, nondistended, positive bowel sounds x4, obese Extremities: +2 pulses bilaterally radialis/ dorsalis pedis, no cyanosis, +1 pitting edema bilateral lower extremity Neuro: Awake alert oriented x3 Psych: Normal mood and affect G/U: No [place] Skin: no rashes, warm and dry Lymphatic: no cervical or axillary lymphadenopathy Results & Data Results & Data Vital Signs (Past 12 Hours) Vital Signs Temp Pulse Pulse Pulse Resp BP Pulse Ox 07/15/24 15:41 103 H 07/15/24 15:14 36.9 C 96 H 18 117/79 94 07/15/24 14:52 114 H 20 92 07/15/24 12:11 36.6 C 90 16 126/82 94 07/15/24 11:10 102 H 17 94 07/15/24 11:10 07/15/24 09:00 91 H 07/15/24 08:42 36.7 C 93 H 19 128/80 95 07/15/24 07:18 91 H 17 92 O2 Del Method O2 Flow Rate 07/15/24 15:41 07/15/24 15:14 Room Air 07/15/24 14:52 Room Air 07/15/24 12:11 Room Air 07/15/24 11:10 Room Air 07/15/24 11:10 Room Air 07/15/24 09:00 07/15/24 08:42 Nasal Cannula 2 07/15/24 07:18 Nasal Cannula 2 Laboratory Results 07/14/24 22:08 07/14/24 22:08 PG Care Time/CCT Total # of Minutes Spent Total Time Spent with Patient: Total time spent is greater than 50% in coordination of care (as documented) at patient's floor/unit and/or counseling patient: Coding Level of Care Code 84263 INT INP/OBS CARE 3/75MIN Diagnoses Asthma-COPD overlap syndrome J44.89 Moderate persistent asthma J45.40 Obesity hypoventilation syndrome E66.2 Multiple myeloma C90.00 Multiple myeloma remission status: unspecified Tobacco abuse Z72.0
--- NOTE | 2024-07-15 20:26 | Electrocardiogram Report ---
Test Reason : Blood Pressure : */* mmHG Vent. Rate : 105 BPM Atrial Rate : 105 BPM P-R Int : 140 ms QRS Dur : 72 ms QT Int : 310 ms P-R-T Axes : 47 12 39 degrees QTcB Int : 409 ms Sinus tachycardia possible Inferior infarct (cited on or before 16-Aug-2023) Abnormal ECG When compared with ECG of 02-Jun-2024 17:17, Criteria for Anterior infarct are no longer Present Confirmed by Nelson Kenny [id number] on 07/15/2024 8:26:30 PM Referred By: REFERRED SELF Confirmed By: Nelson Kenny
[2024-07-15] MEDS: SODIUM CHLOR 7% 4 ML NEB NEB SCH (20:27)
[2024-07-15] MEDS: BUDESONIDE 0.5 MG/2 ML VIAL (PULMICORT) NEB SCH (20:27)
[2024-07-15] MEDS: FORMOTEROL 20 MCG/2 ML VIAL NEB SCH (20:28)
[2024-07-15] MEDS: ACETAMINOPHEN 325 MG TAB PO PRN (20:34)
[2024-07-15] MEDS: CITALOPRAM 20 MG TAB PO SCH (20:35)
[2024-07-15] MEDS: QUEtiapine FUMARATE 100 MG TABLET PO SCH (20:36)
[2024-07-16 06:32] LABS: Mean Corpuscular Hemoglobin 25.8 pg (25.0-34.0); Mean Corpuscular Volume 83.3 fL (80.0-100.0); Mean Platelet Volume 10.3 fL (9.4-12.4); Platelet Count 262 K/uL (130-400); RDW Coefficient of Variation 20.7 % (11.5-14.5); RDW Standard Deviation 61.3 fL (36.4-46.3); Red Blood Count 5.04 M/uL (4.20-5.40); White Blood Count 13.14 K/ul (4.8-10.8)
[2024-07-16 06:35] LABS: BUN Creatinine Ratio 24.6 (10-20); Calcium 9.2 mg/dl (8.6-10.3); Creatinine Clr Calc Pharmacy 51.9 ml/min; Potassium 3.6 mmol/L (3.5-5.1)
--- NOTE | 2024-07-16 07:29 | Pulmonology Progress Note ---
Date of Service July 16, 2024 Assessment & Plan (1) Asthma-COPD overlap syndrome: (2) Moderate persistent asthma: (3) Obesity hypoventilation syndrome: (4) Multiple myeloma: Multiple myeloma remission status: unspecified Qualified Code(s): C90.00 - Multiple myeloma not having achieved remission (5) Tobacco abuse: Plan CT chest 07/14/2024 personally reviewed: Minimal dependent atelectasis bilateral lower lobes No significant mediastinal lymphadenopathy Spirometry 03/16/2024: Severe obstructive lung dysfunction FVC 1.60 L 56%, FEV1 1.04 L 46%, FEV1/FVC 64% 2D echo 07/28/2023: EF 60-65%, RV hypertrophy mild, normal systolic function -- Asthma COPD overlap syndrome BNP 80 Procalcitonin 0.14 On Trelegy 200 Outpatient banking teacher is also working on getting patient Dupixent Absolute eosinophil count 30 on 07/14/2024 --ELEUTERIO On BiPAP at home Continue with the same setting Plan: Continue hypertonic saline nebulized along with flutter valve Continue with nebulized budesonide and formoterol while in the hospital Start titrating of prednisone Please make note patient will always have upper airway wheezing is because of her effort and not coming from the lungs. Case was discussed with RN as well as primary team Please note the above document was generated using voice recognition software. It may contain grammatical, syntax or spelling errors.Any formal questions or concerns about the content, text or information contained within the body of this dictation should be directly addressed to the provider for clarification. Admission and Anticipated Discharge Date Admission Date: July 15, 2024 Subjective Patient seen and examined at bedside. No acute distress, no adverse events overnight She used her BiPAP overnight Shortness of breath has improved. Denied any chest pain She says her phlegm is getting thinner and she is able to bring it up. Denies any nausea or vomiting Fair appetite. Review of Systems 2 Review of Systems: All systems reviewed & are unremarkable except as noted in Subjective Physical Exam 2 Physical Exam: Constitutional: No acute distress HEENT: EOMI, PERRLA, upper airway wheezing Respiratory system: Decreased air entry bilaterally, no rhonchi, no crackles, minimal expiratory wheeze bilaterally CVS: S1-S2 positive, no murmurs or gallops Abdomen: Soft, nontender, nondistended, positive bowel sounds x4, obese Extremities: +2 pulses bilaterally radialis/ dorsalis pedis, no cyanosis, +1 pitting edema bilateral lower extremity Neuro: Awake alert oriented x3 Psych: Normal mood and affect G/U: No [place] Skin: no rashes, warm and dry Lymphatic: no cervical or axillary lymphadenopathy Results & Data Results & Data Vital Signs (Past 12 Hours) Vital Signs Temp Pulse Pulse Resp BP BP Pulse Ox 07/16/24 07:22 91 H 16 92 07/16/24 07:00 88 07/16/24 03:51 86 14 95 07/16/24 03:51 86 16 95 07/16/24 03:19 84 16 130/85 95 07/16/24 00:13 94 H 16 92 07/16/24 00:11 96 H 14 91 07/15/24 22:27 36.6 C 100 H 16 144/85 H 90 07/15/24 21:45 98 H 07/15/24 20:30 93 H 16 90 O2 Del Method O2 Flow Rate 07/16/24 07:22 Room Air 07/16/24 07:00 07/16/24 03:51 2 07/16/24 03:51 CPAP 2 07/16/24 03:19 Room Air, CPAP 07/16/24 00:13 2 07/16/24 00:11 Room Air 07/15/24 22:27 Room Air 07/15/24 21:45 07/15/24 20:30 Room Air Laboratory Results 07/16/24 05:36 07/16/24 05:36 PG Care Time/CCT Total # of Minutes Spent Total Time Spent with Patient: Total time spent is greater than 50% in coordination of care (as documented) at patient's floor/unit and/or counseling patient: Coding Level of Care Code 31646 SUB INP/OBS CARE 2/35MIN Diagnoses Asthma-COPD overlap syndrome J44.89 Moderate persistent asthma J45.40 Obesity hypoventilation syndrome E66.2 Multiple myeloma C90.00 Multiple myeloma remission status: unspecified Tobacco abuse Z72.0
[2024-07-16] MEDS: UMECLIDINIUM BROMIDE 62.5MCG/BLISTER 7 PUFFS/INHALER INH SCH (07:31)
[2024-07-16 10:43] VITALS: O2SAT 90
[2024-07-16 12:14] VITALS: BP 118/76; RESP 16; TEMP 98.6
[2024-07-16] MEDS ORDERED: IPRATROPIUM BROMIDE NEB SOLN 0.02% 0.5MG/2.5ML VIAL NEB PRN (12:50)
[2024-07-16] MEDS ORDERED: LEVALBUTEROL 1.25 MG/3 ML NEB INH PRN (12:51)
--- OUTSIDE RECORDS SUMMARY | 2024-07-16 14:55 | External Medical Summary | Continuity of Care Document ---
Author Name Unknown Organization [facility] [address] [facility] [place] [place] [address] [place] [phone] Care Team Providers Care Enterprise Application Analyst Name Role Phone Radha Barboza Primary Care Physician [phone] [id number] Date(s): 07/13/24 - 07/13/24 [facility] 0 [facility] [place] [place] [address] [facility] [address] [facility] [address] [place] [address] [phone] Encounter Diagnosis Multiple myeloma(Discharge Diagnosis) - 07/13/24 Uncontrolled diabetes mellitus with hyperglycemia, with long-term current use of insulin(Discharge Diagnosis) - 07/13/24 COPD with asthma(Discharge Diagnosis) - 07/13/24 Discharge Disposition: Home or Self Care Attending Physician: ELENA Barboza Kimberly A Encounter Type: Clinic Allergies, Adverse Reactions, Alerts Substance Criticality Severity Reaction Reaction Severity Status codeine Active iodine topical Activ e Phenergan Unable to assess criticality Moderate Itchy Rash Active metFORMIN Angioedema Active shellfish Active Benedryl Allergy Sinus Active oral contrast dye SOB - Shor tness of breath Active Assessment and Plan Extracted from: Title:Office Visit Note - APSO Author:YELENA Barboza Kimberly A Date:07/13/24 1.Multiple myeloma STATUS:Chronic condition exacerbated/progressive/side effects of treatment -se[facility] tomorrow to discuss palliative treatment. 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 GOAL:Maintain stability. PLAN:Cont current monitoring. Patient will keep appt with Dr. Biggs Patient aware to send copies of testing and office notes to our office as well.. 2.Uncontrolled diabetes mellitus with hyperglycemia, with long-term current use of insulin STATUS:Chronic condition exacerbated/progressive/side effects of treatment -Now on Mounjaro and tolerating well -Remains on Lantus 55units at bedtime and has sliding scale available -Unfortunately remains on long-term prednisone from pulmonology -Does have Dexcom 6 to monitor her BS -Has lost a few pounds since starting medication DATA:Labs reviewed. GOAL:Maintain stability. PLAN:Cont current monitoring. .Increase Mounjaro to5mg weekly Continue Lantus and Novologsliding scale Continue to monitor BS regularly, bringing results to next appt. Patient to return in 4-6 weeks with BS readings Will get labs on day of appt 3.COPD with asthma STATUS:Chronic condition, at goal -is following closely with pulmonology -Remains on prednisone until Dupixent is approved -Still struggling with shortness of breath and wheezing -No treatment changes per speciality until apptlater this month -Has noticed increased bruising withthelong-term prednisone use DATA:Labs reviewed. GOAL:Maintain stability. PLAN:Cont current monitoring. No changes today Care to remain under discretion of pulmonology. Time spent on pre-visit plannin Face to face time spent w/ patient: 24 Time spent documenting pertinent clinical information into the EMR: 6 Total time: 34 Immunizations Given and Recorded Vaccine Date Status [...] 102 lancet, Refills: 0, 32G x , Pharmacy:[facility]/pharmacy #[id number] Start Date: 06/30/23 Status: Ordered Quantity: 102.0 Unit: Repeat number: 1 allopurinol 300 mg oral tablet Start: 06/15/24 4:53:00 PM EST, 1 tab, PO, Daily, Disp# 90 tab, Refills: 3 Start Date: 06/15/24 Status: Ordered Quantity: 90.0 Unit: tab Repeat number: 4 ALPRAZolam 0.5 mg oral tablet Start: 07/13/24 4:55:00 PM EDT, 1 tab, PO, bid, Disp# 90 tab, Refills: 1, Make take an extra tablet for acute panic attacks. Max 3/day, PRN: as needed for anxiety, Pharmacy: [facility]/pharmacy #[id number] Start Date: 07/13/24 Status: Ordered Quantity: 90.0 Unit: tab Repeat number: 2 BD needle Ultra-Fine Pen 29G x 0.5" Start: 05/11/24 9:58:00 AM EST, See Instructions, Disp# 100 each, Use as directed with insulin. Max _4_/day. Use new pen needle with each injection., Note to Pharmacy: E11.65, Pharmacy: [facility]/pharmacy #[id number] Start Date: 05/11/24 Status: Ordered Quantity: 100.0 Unit: each Repeat number: 1 buprenorphine-naloxone 8 mg-2 mg sublingual film Start: 06/30/24 3:31:00 PM EST, 1 patch, SL, Daily, Disp# 30 patch, Refills: 0, Pharmacy: [facility]/pharmacy #[id number] Start Date: 06/30/24 Stop Date: 07/30/24 Status: Ordered Quantity: 30.0 Unit: patch Repeat number: 1 CeleXA 20 mg oral tablet Start: 06/15/24 4:51:00 PM EST, 1 tab, PO, Daily, Disp# 90 tab, Refills: 5 Start Date: 06/15/24 Status: Ordered Quantity: 90.0 Unit: tab Repeat number: 6 clotrimazole 2% vaginal cream with applicator Start: 06/15/24 5:03:00 PM EST, 1 appl, vaginal, qhs, Disp# 21 g, Refills: 5, Pharmacy: [facility]/pharmacy#[id number] Start Date: 06/15/24 Status: Ordered Quantity: 21.0 Unit: g Repeat number: 6 colchicine 0.6 mg oral tablet Start: 07/08/24 6:27:00 PM EDT, See Instructions, Disp# 30 tab, Refills: 0, TAKE 2 TABLETS BY MOUTH ONCE, THEN TAKE 1 TABLET TWICE A DAY FOR 3 DAYS NEEDED FOR GOUT ATTACKS, Pharmacy: [facility] #[id number] Start Date: 07/08/24 Status: Ordered Quantity: 30.0 Unit: tab Repeat number: 1 Dexcom G6 Wet Process Operator Kit Start: 10/11/23 8:34:00 PM EDT, See Instructions, Disp# 1 kit, Test three times daily, Note to Pharmacy: Dx E11.65, Pharmacy: [facility] #[id number] Start Date: 10/11/23 Status: Ordered Quantity: 1.0 Unit: kit Repeat number: 1 Dexcom G6 Sensor Kit Start: 11/25/23 11:27:00 AM EDT, See Instructions, Disp# 3 kit, Refills: 5, Test three times daily, Note to Pharmacy: Dx E11.65, Pharmacy: [facility] #[id number] Start Date: 11/25/23 Status: Ordered Quantity: 3.0 Unit: kit Repeat number: 6 DEXCOM G6 TRANSMITTER Start: 03/23/24 9:59:00 AM EST, DEXCOM G6 TRANSMITTER, See Instructions, Disp# 1 unknown unit, Refills: 4, TEST 3 TIMES A DAY, Pharmacy [id number] Start Date: 03/23/24 Status: Ordered Quantity: 1.0 Unit: unknown unit Repeat number: 1 DEXCOM G6 TRANSMITTER Start: 02/16/24 4:40:00 PM EDT, DEXCOM G6 TRANSMITTER, See Instructions, Disp# 1 unknown unit, Refills: 0, TEST 3 TIMES A DAY, Pharmacy [id number] Start Date: 02/16/24 Status: Ordered Quantity: 1.0 Unit: unknown unit Repeat number: 1 Dexcom G6 Transmitter Kit Start: 10/11/23 8:36:00 PM EDT, See Instructions, Disp# 1 kit, Test three times daily, Pharmacy: [facility] #[id number] Start Date: 10/11/23 Status: Ordered Quantity: 1.0 Unit: kit Repeat number: 1 fluconazole 100 mg oral tablet Start: 04/29/24 8:46:00 AM EST, 1 tab, PO, Daily Start Date: 04/29/24 Status: Ordered Repeat number: 1 fluticasone 50 mcg/inh nasal spray Start: 09/02/23 9:54:00 AM EDT, 1 spray, each nostril, bid Start Date: 09/02/23 Status: Ordered Repeat number: 1 Lant Solostar Pen 100 units/mL subcutaneous solution Start: 07/01/24 8:09:00 AM EST, 60 unit =, subQ, qAM, Disp# 15 unknown unit, Refills: 1, Pharmacy: [id number] Start Date: 07/01/24 Status: Ordered Quantity: 15.0 Unit: unknown unit Repeat number: 1 levalbuterol CFC free 45 mcg/inh inhalation aerosol Start: 05/17/24 9:15:00 AM EST, 2 puff, inhaled, q6h, Disp# 15 each, Refills: 2, PRN: NEEDED FOR WHEEZING, [id number] Start Date: 05/17/24 Status: Ordered Quantity: 15.0 Unit: each Repeat number: 3 montelukast 10 mg oral tablet Start: 11/24/23 3:55:00 PM EDT Start Date: 11/24/23 Status: Ordered Repeat number: 1 Mounjaro 5 mg/0.5 mL subcutaneous solution Start: 07/13/24 4:48:00 PM EDT, 5 mg =, subQ, q7days, Disp# 2 mL, Refills: 1, tirzepatide, Note to Pharmacy: Dx: Uncontrolled DM2, [id number] Start Date: 07/13/24 Status: Ordered Quantity: 2.0 Unit: mL Repeat number: 2 NovoLOG FlexPen 100 units/mL injectable solution Start: 12/09/23 11:19:00 AM EDT, 10 unit =, subQ, ac, Disp# 15 mL, Refills: 5, Pharmacy: [facility]/pharmacy #[id number] Start Date: 12/09/23 Status: Ordered Quantity: 15.0 Unit: mL Repeat number: 6 ondansetron 4 mg oral tablet, disintegrating Start: 12/08/23 5:45:00 PM EDT, 1 tab, PO, q8h, Disp# 30 tab, Refills: 1, PRN: NEEDED FOR NAUSEA/VOMITING, Pharmacy: [id number] Start Date: 12/08/23 Status: Ordered Quantity: 30.0 Unit: tab Repeat number: 1 Potassium Chloride (Lxx-Hlje-Fuk M20) 20 mEq oral tablet, extended release Start: 01/04/24 11:19:00 AM EDT, 2 tab, PO, bid, Disp# 720 tab, Refills: 3, [id number] Start Date: 01/04/24 Status: Ordered Quantity: 720.0 Unit: tab Repeat number: 4 predniSONE 10 mg oral tablet Start: 05/11/24 10:10:00 AM EST, See Instructions, Disp# 45 tab, 2 qd x 7 days, then 1.5 tabs daily,[id number] Start Date: 05/11/24 Status: Ordered Quantity: 45.0 Unit: tab Repeat number: 1 Seroquel 100 mg oral tablet Start: 05/16/24 12:11:00 AM EST, 1 tab, PO, Daily, Disp# 90 tab, Refills: 5, Pharmacy: [facility] #[id number] Start Date: 05/16/24 Stop Date: 11/07/25 Status: Ordered Quantity: 90.0 Unit: tab Repeat number: 6 Silvadene 1% topical cream Start: 03/08/24 1:33:00 PM EST, 1 appl, topical, bid, Disp# 15 g, [id number] Start Date: 03/08/24 Status: Ordered Quantity: 15.0 Unit: g Repeat number: 1 spironolactone 100 mg oral tablet Start: 06/15/24 4:09:00 PM EST, 1 tab, PO, bid Start Date: 06/15/24 Status: Ordered Repeat number: 1 torsemide 100 mg oral tablet Start: 04/29/24 8:46:00 AM EST, 1 tab, PO, Daily Start Date: 04/29/24 Status: Ordered Repeat number: 1 Trelegy Ellipta 200 mcg-62.5 mcg-25 mcg/inh inhalation powder Start: 07/08/22 11:13:00 AM EDT Start Date: 07/08/22 Status: Ordered Repeat number: 1 Ventolin HFA 90 mcg/inh inhalation aerosol Start: 05/17/24 9:15:00 AM EST, 2 puff, inhaled, qid, Disp# 8 g, Refills: 5, PRN: as needed for wheezing, Pharmacy: [facility]/pharmacy #[id number] Start Date: 05/17/24 Status: Ordered Quantity: 8.0 Unit: g Repeat number: 6 Mental Status 07/13/24 Barriers to Learning one year None evide nt Mandatory Health Literacy Documentation Yes Health Literacy Communication Barriers N ever Primary Language Jordanian Problem List Condition Confirmation Course Effective Dates Status Health St atus Informant Anxiety Confirmed Active Chronic low back pain Confirmed Active COPD without exacerbation Confirmed Active Congestive heart failure Confirmed Active Dyspnea on minimal exertion Confirmed Active Lower extremity edema Confirmed Active History of pulmonary embolus (PE) Confirmed Active History of ovarian cancer Confirmed Active Uncontrolled diabetes mellitus with hyperglycemia, with long-term current use of insulin Confirmed Active Multiple myeloma Confirmed Active Chemotherapy-induce d nausea Confirmed Active Opioid use disorder in remission Confirmed Active Seasonal allergies Confirmed Active Swelling of lower extremity Confirmed Active Tobacco user Confirmed Active Weight disorder Confirmed Active Diagnosis Diagnosis Type Effective Dates Health Status Clinical Service Informant Multiple myeloma Discharge Diagnosis 07/13/24 Non-Specified Uncontrolled diabetes mellitus with hyperglycemia, with long-term current use of insulin Discharge Diagnosis 07/13/24 Non-Specified COPD with asthma Discharge Diagnosis 07/13/24 Non-Specified Procedures Procedure Date Related Diagnosis Body Site Status Bone marrow biopsy 2013 [facility] Vital Signs Most recent to oldest [Reference Range]: 1 Patient Weight 90 kg (07/13/24 4:12 PM) Heart Rate 103 bpm (07/13/24 4:12 PM) Respiratory Rate 22 br/min (07/13/24 4:12 PM) Blood Pressure 144/88mmHg (07/13/24 4:12 PM) Cuff Pulse Pressure 56 mmHg (07/13/24 4:12 PM) Social History Social History Type Response Sm[facility] Sex Female Sex Representation Female (finding) FCM Outpt Note * ELENA Barboza, Radha Bhatia: PERFORM Event Display: FCM Outpt Note Authored Date: [id number] Assessment/Plan 1.Multiple myeloma STATUS:Chronic condition exacerbated/progressive/side effects of treatment -sees [facility] tomorrow to discuss palliative treatment. 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 GOAL:Maintain stability. PLAN:Cont current monitoring. Patient will keep appt with Dr. Biggs Patient aware to send copies of testing and office notes to our office as well.. 2.Uncontrolled diabetes mellitus with hyperglycemia, with long-term current use of insulin STATUS:Chronic condition exacerbated/progressive/side effects of treatment -Now on Mounjaro and tolerating well -Remains on Lantus 55units at bedtime and has sliding scale available -Unfortunately remains on long-term prednisone from pulmonology -Does have Dexcom 6 to monitor her BS -Has lost a few pounds since starting medication DATA:Labs reviewed. GOAL:Maintain stability. PLAN:Cont current monitoring. .Increase Mounjaro to5mg weekly Continue Lantus and Novologsliding scale Continue to monitor BS regularly, bringing results to next appt. Patient to return in 4-6 weeks with BS readings Will get labs on day of appt 3.COPD with asthma STATUS:Chronic condition, at goal -is following closely with pulmonology -Remains on prednisone until Dupixent is approved -Still struggling with shortness of breath and wheezing -No treatment changes per speciality until apptlater this month -Has noticed increased bruising withthelong-term prednisone use DATA:Labs reviewed. GOAL:Maintain stability. PLAN:Cont current monitoring. No changes today Care to remain under discretion of pulmonology. Time spent on pre-visit plannin Face to face time spent w/ patient: 24 Time spent documenting pertinent clinical information into the EMR: 6 Total time: 34 Chief Complaint F/U, swelling all over History of Present Illness Patient is a 64 yo female with complicated PMH Multiple myeloma: -sees [facility] tomorrow to discuss palliative treatment. 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 DM2: -Now on Mounjaro and tolerating well -Remains on Lantus 55units at bedtime and has sliding scale available -Unfortunately remains on long-term prednisone from pulmonology -Does have Dexcom 6 to monitor her BS -Has lost a few pounds since starting medication COPD/Asthma: -is following closely with pulmonology -Remains on prednisone until Dupixent is approved -Still struggling with shortness of breath and wheezing -No treatment changes per speciality until apptlater this month Review of Systems ROS per HPI Physical Exam Vitals & Measurements HR:103(Monitored) RR:22 BP:144/88 SpO2:95% WT:90.000kg(Dosing) WT:90kg PHQ2 Data(Data Documented on:07/13/2024 16:11) Emotional health assessment NEGATIVE GENERAL: _No acute distress. Well developed and well nourished. Vital signs reviewed as above. EYES: _EOMI. Anicteric sclerae. HENT: _Moist mucous membranes. RESPIRATORY: _Clear to auscultation bilaterally.No wheezing, rales, orrhonchi. CARDIOVASCULAR: _Regularrate and rhythm.No murmurs. ABDOMEN: _Soft,hgt-ljaizfcywias-wfpcughoj. Normal bowel sounds. EXTREMITIES: _No gross deformities. SKIN: _Warm, dry. NEUROLOGIC: _Alert and oriented. Normal speech. No gross focal neurological deficits. PSYCHIATRIC: _Cooperative. Appropriate mood and affect. Problem List/Past Medical History Ongoing Anxiety Chemotherapy-induced nausea Chronic low back pain Congestive heart failure COPD without exacerbation Dyspnea on minimal exertion History of ovarian cancer History of pulmonary embolus (PE) Lower extremity edema Multiple myeloma Opioid use disorder in remission Seasonal allergies Swelling of lower extremity Tobacco user Uncontrolled diabetes mellitus with hyperglycemia, with long-term current use of insulin Weight disorder Resolved Bipolar disease, chronic Procedure/Surgical History Bone marrow biopsy| Service Date: 2013 Medications albuterol(Ventolin HFA 90 mcg/inh inhalation aerosol), 2 puff, inhaled, qid, PRN, 5 refills allopurinol(allopurinol 300 mg oral tablet), 300 mg= 1 tab, PO, Daily, 3 refills ALPRAZolam(ALPRAZolam 0.5 mg oral tablet), 0.5 mg= 1 tab, PO, bid, PRN, 1 refills buprenorphine-naloxone(buprenorphine-naloxone 8 mg-2 mg sublingual film), 1 patch, SL, Daily citalopram(CeleXA 20 mg oral tablet), 20 mg= 1 tab, PO, Daily, 5 refills clotrimazole topical(clotrimazole 2% vaginal cream with applicator), 1 appl, vaginal, qhs, 5 refills colchicine(colchicine 0.6 mg oral tablet), See Instructions diabetes supplies(Accu-Chek FastClix Lancets), See Instructions diabetes supplies(Dexcom G6 Transmitter Kit), See Instructions diabetes supplies(Dexcom G6 Wet Process Operator Kit), See Instructions diabetes supplies(Dexcom G6 Sensor Kit), See Instructions, 5 refills fluconazole(fluconazole 100 mg oral tablet), 100 mg= 1 tab, PO, Daily fluticasone nasal(fluticasone 50 mcg/inh nasal spray), 1 spray, each nostril, bid fluticasone/umeclidinium/vilanterol(Trelegy Ellipta 200 mcg-62.5 mcg-25 mcg/inh inhalation powder) insulin aspart(NovoLOG FlexPen 100 units/mL injectable solution), 10 unit, subQ, ac, 5 refills insulin glargine(Lantus Solostar Pen 100 units/mL subcutaneous solution), 60 unit, subQ, qAM levalbuterol(levalbuterol CFC free 45 mcg/inh inhalation aerosol), 2 puff, inhaled, q6h, PRN, 2 refills montelukast(montelukast 10 mg oral tablet) ondansetron(ondansetron 4 mg oral tablet, disintegrating), 1 tab, PO, q8h, PRN potassium chloride(Potassium Chloride (Iut-Ydbq-Wya M20) 20 mEq oral tablet, extended release), 40 mEq= 2 tab, PO, bid, 3 refills predniSONE(predniSONE 10 mg oral tablet), See Instructions QUEtiapine(Seroquel 100 mg oral tablet), 100 mg= 1 tab, PO, Daily, 5 refills silver sulfADIAZINE topical(Silvadene 1% topical cream), 1 appl, topical, bid spironolactone(spironolactone 100 mg oral tablet), 100 mg= 1 tab, PO, bid syringe needles(BD needle Ultra-Fine Pen 29G x 0.5"), See Instructions tirzepatide(Mounjaro 5 mg/0.5 mL subcutaneous solution), 5 mg, subQ, q7days, 1 refills torsemide(torsemide 100 mg oral tablet), 100 mg= 1 tab, PO, Daily unlisted medication(DEXCOM G6 TRANSMITTER), See Instructions unlisted medication(DEXCOM G6 TRANSMITTER), See Instructions Allergies Phenergan (Moderate)Itchy, Rash Benedryl Allergy Sinus codeine iodine topical metFORMINAngioedema oral contrast dyeSOB - Shortness of breath shellfish Social History Smoking Status Current every day light smoker Intake (IView) Smoking History Cigarette smoker: Current every day light smoker Tobacco Product Use: Never used other tobacco products How many total years have you smoked: 20 Total pack years: 5 What is avg daily use when smoking: .25 (5 cigarettes) Immunizations Vaccine Date Status SARS-CoV-2 (COVID-19) mRNA BNT-162b2 vax 04/06/2021 Recorded Comments : 2023-03-11: Historical information-source unspecified SARS-CoV-2 (COVID-19) mRNA BNT-162b2 vax 09/02/2020 Recorded Comments : 2023-03-11: Historical information-source unspecified SARS-CoV-2 (COVID-19) mRNA BNT-162b2 vax 08/08/2020 Recorded Comments : 2023-03-11: Historical information-source unspecified Recommendations Health Maintenance Pending(in the next year) OverDue Diabetic Eye Exam due11/05/15and every 366day Adult Influenza Vaccine due10/26/23and every 1year Due Adult Social Determinants of Health Screening due07/13/24Unknown Frequency Adult Tdap/Td Vaccine due07/13/24Unknown Frequency Breast Cancer Screening due07/13/24Unknown Frequency Cervical Cancer Screening due07/13/24Unknown Frequency Colorectal Cancer Screening due07/13/24Unknown Frequency Kidney Health Evaluation due07/13/24Unknown Frequency Lipid Screening due07/13/24Unknown Frequency Pneumococcal Vaccine Adults and Adolescents with Chronic Illness due07/13/24One-time only Seasonal COVID 19 Vaccine due07/13/24Unknown Frequency Shingles Vaccine due07/13/24One-time only Due In Future Diabetes Management A1c not due until05/12/25and every 366day Satisfied(in the past 1 year) Satisfied Body Mass Index on03/14/24.Satisfied by [facility] [place] [facility] A1c on05/11/24.Satisfied by Contributor_system, [employer] Kidney Health Evaluation on05/11/24.Satisfied by Contributor_system, [email or web address] Electronic Signature on File Electronically Reviewed/Signed by: Radha Barboza PA-C Author Signature Dt/Tm:07/13/2024 05:29 PM Department of Family Medicine [facility] Patient Care team information Care Team Personnel Name: ELENA Barboza, Radha Bhatia Position: Physician Asst Exmpt - Family Med Member Role: Primary Care Provider Address: [address] [address] [place] Telecom: [phone] Name: MARGARET Dunn Jo Ann M Position: Nurse Pract - Hem/Onc Member Role: Lifetime Relationship Address: [address] [place] [id number] Telecom: [phone] Care Team Related Persons Name: MO SAMUEL Insurance Providers Guarantor name: LIANNE SAMUEL Health Plan Information #: [address] [facility] Member Number: [id number] Policy Number: NA Group Number: [id number] Plan Information #: 1 Payer: [employer] Member Number: [id number] Policy Number: NA Group Number: [id number]
--- NOTE | 2024-07-16 15:06 | Discharge Summary ---
Discharge Summary Date of Service July 16, 2024 Principal Dx & Hospital Course #1 = Principal Diagnosis (1) Allergic asthma: (2) COPD (chronic obstructive pulmonary disease): (3) DM II (diabetes mellitus, type II), controlled: (4) Thrush of mouth and esophagus: Plan 64-year-old female with history of chronic hypoxic/hypercapnic respiratory failure, diabetes, COPD and allergic asthma presenting with 1 week of progressive shortness of breath. Patient reports that her home inhalers and therapies have not been working. She denies fever, chills or other infectious symptoms. Denies allergic symptoms. patient improved after administration of albuterol nebs in the ER. #Acute exacerbation of COPD. Continue budesonide Continue Trelegy or formulary equivalent Continue supplemental O2 as needed Incentive spirometry and flutter valve Continue patient's home dose of prednisone 15 mg a day Will avoid additional IV steroids Patient is working with pulmonary for insurance approval for [employer]. -will taper steroids and place on hypertonic saline. Encourage smoking cessation #Diabetes Lantus 25 units twice daily #Anxiety/mental health Continue Seroquel 100 mg p.o. nightly Continue alprazolam 0.5 mg p.o. up to 3 times a day as needed. Patient reports that she takes his medications at 0600 hrs. 1200 hrs. and 1700 hrs. Continue citalopram 20 mg p.o. nightly #History of opioid dependence Continue buprenorphine/naloxone 8 mg film daily. Dose confirmed by independent review of PDMP #Heart failure with preserved ejection fractionpatient appears to be well compensated at present with no report of worsening edema, orthopnea or weight gain continue spironolactone 100 mg p.o. daily Continue torsemide 100 mg p.o. daily Continue Diamox to 50 mg p.o. daily #ELEUTERIO/obesity hypoventilation syndrome Continue CPAP nightly #Thrush Continue nystatin twice daily Admission HPI Per Admitting Provider Janae Monzon is a 64-year-old female well-known to the hospitalist service with history of chronic hypoxic hypercapnic respiratory failure, COPD, anxiety presenting from home with progressive shortness of breath. Patient reports that over the last week she has become more and more short of breath and experiencing more wheezing. She has been trying to manage at home with her inhalers. She denies chest pain, palpitations, edema, orthopnea. Denies fevers, chills, purulent sputum. Denies allergy symptoms itchy eyes, watery eyes or runny nose. No additional complaints at this time Upon arrival to the ER patient with adequate oxygenation, no respiratory distress ER course: Solu-Medrol 60 mg IV Alprazolam 0.5 mg p.o. Albuterol 12 DuoNebs Doxycycline 100 mg p.o. Albuterol 3 mL neb Discharge Exam General: patient resting comfortably, NAD, non-toxic in appearance, AA&O x 4, cushingoid with moran facies and buffalo hump Skin: warm, dry, intact, no rashes or lesions HEENT: NC/AT, PERRL, EOMI Heart: +S1/S2, regular, no m/r/g Lungs: equal air entry bilaterally, mildly diminished airflow bilaterally, no rales/rhonchi/wheezes Abd: +BS, soft, NT/ND, no masses/organomegaly/ascites Ext: warm, 2+ pulses in UE/LE bilaterally Neuro: nonfocal, patient AA&O x 4, speech intact, no facial droop, moving all extremities on command with equal strength 5/5 Discharge Plan Discharge Items Patient Disposition: Home - Self-Care Reason For Visit: SHORTNESS OF BREATH,COPD Discharge Diagnosis: SOB, COPD Condition on Discharge: Good Activity: Resume your previous activity Non-emergency contact: Primary Care Provider Call non-emergency contact if: you have any medication questions Follow-up/Referrals: Radha Barboza PA-C [Primary Care Provider] - Diet: Carb Consistent or DM2 Addtl Attending Provider Instructions: Janae, You were admitted to the hospital for SHortness of breath. This is what caused your symptoms of shortness of breath, mucus production, and cough. You were treated with improved pulmonary toilet: hypertonic saline and flutter valve and nebs.You were evaluated by Dr. Olson. Continue hypertonic saline twice a day. * Follow-up with your PCP in 1-2 weeks. * Follow-up with pulmonology within the next 1 month. Pending Studies at Discharge: No Stand-Alone Forms: My [facility] HomeStay, Smoking Cessation Medications and DC Order Prescriptions: New sodium chloride 7 % Solution For Nebulization 4 ml NEB BIDR Qty: 120 0RF Continued Dupixent Pen 300 mg/2 mL pen injector 600 mg subcut ONCE Qty: 4 0RF Dupixent Pen 300 mg/2 mL pen injector 300 mg subcut .every other week Qty: 4 6RF potassium chloride [Klor-Con M20] 20 mEq tablet,ER particles/crystals 40 meq PO DAILY Qty: 0 0RF budesonide 0.25 mg/2 mL suspension for nebulization 0.25 mg inhalation BID Qty: 60 3RF albuterol sulfate 90 mcg/actuation HFA aerosol inhaler 2 puff INHALATION Q4H PRN (Reason: Shortness Of Breath Or Wheezing) Qty: 8.5 0RF Trelegy Ellipta 200-62.5-25 mcg blister with device 1 ea INHALATION QAM Qty: 60 0RF levalbuterol HCl 1.25 mg/3 mL solution for nebulization 1.25 mg INHALATION Q8H PRN (Reason: Shortness Of Breath Or Wheezing) ipratropium bromide 0.02 % solution 3 ml continuous nebulization QID PRN (Reason: shortness of breath) Qty: 75 0RF calcium polycarbophil [Fiber (calcium polycarbophil)] 625 mg Tablet 625 mg PO QAM Qty: 30 0RF silver sulfadiazine 1 % cream 1 applic topical BID quetiapine 100 mg tablet 100 mg PO HS allopurinol 300 mg tablet 300 mg PO DAILY levalbuterol tartrate 45 mcg/actuation HFA aerosol inhaler 2 puff INHALATION Q6H PRN (Reason: WHEEZE) citalopram 20 mg tablet 20 mg PO HS torsemide 100 mg Tablet 100 mg PO QAM Qty: 30 0RF guaifenesin [Mucinex] 600 mg Tablet Extended Release 12hr 600 mg PO Q12 Qty: 14 0RF nystatin 100,000 unit/mL Suspension 10 ml PO BID Qty: 250 0RF spironolactone 100 mg Tablet 100 mg PO BID17 Qty: 60 0RF acetazolamide 250 mg Tablet 250 mg PO BID17 Qty: 60 0RF prednisone 5 mg tablet 15 mg PO DAILY 90 Days Qty: 270 2RF Rx Instructions: take 3 tablets for 3 days, then 2 tablets for 3 days, then 1 tablet for 3 days. fluticasone propionate [Flonase Allergy Relief] 50 mcg/actuation spray,suspension 1 spray intranasal BID Qty: 0 0RF insulin aspart U-100 [Novolog FlexPen U-100 Insulin] 100 unit/mL (3 mL) insulin pen 10 unit subcut TIDM ascorbic acid (vitamin C) [Vitamin C] 500 mg Tablet 1,000 mg PO DAILY Qty: 60 0RF alprazolam 0.5 mg tablet 0.5 mg PO BID PRN (Reason: ANXIETY ) Hold Instructions: Resume on 04/06/24. Hold while you finish the course of fluconazole for the oral and esophageal thrush Rx Instructions: PT MAY TAKE AN EXTRA TAB FOR ACUTE PANIC ATTACKS- MAX 3 TABS DAILY ondansetron 4 mg tablet,disintegrating 4 mg PO Q8 PRN (Reason: NAUSEA/VOMITING) insulin glargine [Lantus Solostar U-100 Insulin] 100 unit/mL (3 mL) insulin pen 50 unit SUBCUT QAM colchicine 0.6 mg capsule 0.6 mg PO DAILY PRN (Reason: joint pain) Qty: 30 0RF Discharge Orders: Discharge Order (Routine); Ordered 07/16/24 Ordered By: Rico Varghese Admission Data Admit Date/Time: 07/15/24 01:40 Attending Provider: Rico Varghese Admit Provider: Riya Mckenna Primary Care Provider: Radha Barboza Other Providers: Riya Mckenna; Roseanna Olson Other Interventions: Discharge Summary Assessment (RN) Last Done: 07/16/24 15:00 Hospital Stay Data Consultations 07/15/24 01:09 ED Decision to Admit Stat 07/15/24 09:09 Consult Pulmonology Routine Diagnostic Imagining Performed 07/14/24 22:56 CT chest diagnostic wo con Stat Pending Results Patient Have Any Pending Studies at Discharge: No Discharge Instructions Given to Patient (Per Discharging Provider) Janae, You were admitted to the hospital for SHortness of breath. This is what caused your symptoms of shortness of breath, mucus production, and cough. You were treated with improved pulmonary toilet: hypertonic saline and flutter valve and nebs.You were evaluated by Dr. Olson. Continue hypertonic saline twice a day. * Follow-up with your PCP in 1-2 weeks. * Follow-up with pulmonology within the next 1 month. Total Time Total Time Spent Total Time Spent (In Minutes): 32 Coding Level of Care Code 03913 INP/OBS DISCH >30 MIN Diagnoses Severe persistent extrinsic asthma without complication J45.50 Asthma complication type: uncomplicated Asthma persistence: persistent Asthma severity: severe COPD (chronic obstructive pulmonary disease) J44.9 COPD type: unspecified COPD DM II (diabetes mellitus, type II), controlled E11.9 Thrush of mouth and esophagus B37.81; B37.0
[2024-07-16 15:07] VITALS: PULSE 102
== END 2024-07-16 15:21 | disposition home or self-care (01) ==
LOC: 2N 21:51 → ED 21:51 → SUATTDRO 07-15 01:40 → 2N 07-15 02:24

== ENCOUNTER 2024-08-28 14:42 | Inpatient (IN) ==
[2024-08-28 16:15] LABS: Basophils # (auto) 0.03 K/uL (0.00-0.20); Basophils % (auto) 0.2 %; Hematocrit (blood only) 48.7 % (37.0-47.0); Hemoglobin 15.2 g/dl (12.0-16.0); Immature Granulocytes % (auto) 0.8 %; Lymphocytes # (auto) 1.57 K/uL (1.20-3.40); Lymphocytes % (auto) 12.8 %; Mean Corpuscular Hemoglobin 25.9 pg (25.0-34.0); Mean Corpuscular Hgb Conc 31.2 g/dL (32.0-36.0); Mean Corpuscular Volume 83.1 fL (80.0-100.0); Mean Platelet Volume 10.1 fL (9.4-12.4); Monocytes # (auto) 0.33 K/uL (0.11-0.59); Monocytes % (auto) 2.7 %; Neutrophils # (auto) 10.27 K/uL (1.40-6.50); Neutrophils % (auto) 83.5 %; Platelet Count 408 K/uL (130-400); RDW Coefficient of Variation 18.6 % (11.5-14.5); RDW Standard Deviation 53.7 fL (36.4-46.3); Red Blood Count 5.86 M/uL (4.20-5.40)
--- NOTE | 2024-08-28 16:22 | Emergency Department Note ---
ED DC CONDITION Conditon at Discharge Condition at Discharge: Fair Impression & Plan Lower extremity edema, CHF (congestive heart failure), Mild renal insufficiency ED Provider Note NAME: LIANNE SAMUEL AGE: 64 SEX: F : 1960 ARRIVES VIA: Walk-In INFORMANT: Patient ED PROVIDER(S): Ismael Armstrong MD CHIEF COMPLAINT: Leg edema, referred. PLAN: Disposition: Admit MEDICAL DECISION MAKING: The patient is a pleasant 64-year-old woman with past medical history of COPD on prn home oxygen, diastolic heart failure, history of opioid dependence, history of PE on Lovenox, history of multiple myeloma, anxiety who presents to the emergency department via walk-in for evaluation of worsening bilateral lower extremity swelling and weeping where she reports she had seen her primary care doctor's office they changed her Lasix to Bumex. However report she reports that despite taking Bumex twice daily over the past couple of days she has not had any improvement and does not feel she is having any increased urination with the diuretic. She reports she contacted them again and was instructed to present to the emergency department for hospitalization for treatment with IV diuretics. She has chest pain or significant shortness of breath. On evaluation patient no acute distress, afebrile stable vital signs. She exhibits 1+ bilateral lower extremity pitting edema with weeping of the lower legs and feet with erythema and capillary refill 3s bilaterally with feet cool to touch. She has palpable DP pulses bilaterally. EKG without overt acute ischemia. CXR negative for acute cardiopulmonary process per my personal preliminary review/interpretation. WBC 12.3 K with neutrophilia but no left shift, nonspecific. Hemoglobin within normal limits. Platelets 408K, nonspecific. Chemistry with out metabolic acidosis. Creatinine 1.39, increased from recent though approximate 2 prior range of values. LFTs unremarkable. High styptic troponin 18.7, nonspecific., similar to prior. BNP is not elevated. Procalcitonin is not elevated. Venous Dopplers of bilateral lower extremities were negative for DVT. Arterial studies demonstrate mild PAD. Patient's treatment was initially with IV Bumex. Case was discussed with Dr. Calabrese, [facility] hospitalist, who will evaluate the patient for admission. Further management per admitting team. Triage Nursing notes reviewed and agree them. Prior/external medical records reviewed Vital Signs: reviewed Differential diagnosis: DVT, musculoskeletal, infection, joint effusion, trauma, lymphedema, idiopathic, CHF, as well as other pathologies. ER treatment provided: See below. Diagnostics interpreted by me: ECG: Sinus tachycardia, 104 bpm, no ectopy, no overt ST elevation or depression, QTc 415, QRS 68. Cardiac Monitoring: An order for continuous cardiac monitoring was placed and demonstrated Sinus tachycardia, 104 bpm, no ectopy. Laboratory studies: See below Imaging studies: See below Consultation(s): Dr. Calabrese, [facility] hospitalist HPI: Per MDM. ROS: See above HPI for pertinent positives & negatives. A total of 10 systems reviewed and were otherwise negative. VITALS:See Below PHYSICAL EXAMINATION: GENERAL: Awake, alert, in no distress HENT: Normocephalic, atraumatic. Oropharynx unremarkable. EYES: Normal conjunctiva. Sclera non-icteric. NECK: Supple. No nuchal rigidity. FROM. No JVD. RESPIRATORY: Clear to auscultation. CARDIAC: Regular rate, normal rhythm. Extremities warm and well perfused. Pulses equal. ABDOMEN: Soft, non-distended. No tenderness to palpation. No rebound or guarding. No masses. MUSCULOSKELETAL: Chest examination reveals no tenderness. The back is symmetrical on inspection without obvious abnormality. There is no CVA tenderness to palpation. No joint edema. LOWER EXTREMITIES: Calves are equal size bilaterally and non-tender.1+ bilateral lower extremity pitting edema with serous weeping of the lower legs and feet with erythema and capillary refill 3s bilaterally with feet cool to touch. She has palpable DP pulses bilaterally. NEURO: Normal sensorium. No sensory or motor deficits noted. SKIN: No rash or jaundice noted. Ismael Armstrong MD Past Med/Surg History Problem List (Updated 08/28/24 @ 23:37 by Ismael Armstrong MD) Mild renal insufficiency (Acute) CHF (congestive heart failure) (Acute) HARRIS (dyspnea on exertion) (Acute) Leukocytosis (Acute) Asthma-COPD overlap syndrome Acute exacerbation of chronic obstructive airways disease (Acute) Vitamin D deficiency Hyperglycemia due to diabetes mellitus (Acute) Chronic hypercapnic respiratory failure Bone marrow transplant status Bronchiectasis Allergic asthma Lower extremity edema (Acute) Generalized anxiety disorder DM II (diabetes mellitus, type II), controlled COPD (chronic obstructive pulmonary disease) Dyspnea D-dimer, elevated (Acute) Palpitations (Acute) Chest pain (Acute) Bilateral knee pain CHF exacerbation (Acute) COPD exacerbation (Acute) Chest pain Right knee pain Acute exacerbation of chronic obstructive pulmonary disease (Acute) Leukocytosis (Acute) Acute hypokalemia (Acute) Diabetes Hypokalemia Tobacco abuse counseling Moderate persistent asthma Constipation Acute bronchitis Pulmonary vascular congestion Medical History B12 deficiency Pneumonia COPD exacerbation Anxiety Thrush of mouth and esophagus Heart failure with preserved ejection fraction Elevated brain natriuretic peptide (BNP) level Acute dyspnea Acute hypoxic respiratory failure Elevated troponin COVID-19 Normocytic hypochromic anemia Failure of outpatient treatment Bilateral edema of lower extremity Gout Tobacco use disorder Hematochezia History of pulmonary embolism Michela esophagitis Acute and chronic respiratory failure with hypoxia Chronic anticoagulation Obesity hypoventilation syndrome Multiple myeloma Last chemotherapy 2016 Follows with medical oncology in [facility] History of pulmonary embolism Acute exacerbation of chronic obstructive pulmonary disease Acute heart failure with preserved ejection fraction (HFpEF) Acute exacerbation of chronic obstructive pulmonary disease Tobacco abuse Opiate dependence Asthma Surgical History No pertinent past surgical history Family History Sister Asthma Social History Smoking Status: Current every day smoker Tobacco Type: Cigarettes Age Started Using Tobacco: 15; Cigarettes Per Day: 4; Second Hand Exposure: No; Do You Dip or Chew Tobacco: No; Hx Alcohol Use: No Hx Substance Use: No Preferred Language: Malawian Communication Ability: Effective Teaseler Required: No Beliefs That Will Affect Care: None Current Living Situation: Family Current Living Situation Comment: lives with sister, from [place] Feels Safe at Home: Yes Assistive Devices: CPAP, Denture - Upper, Denture - Lower, Glasses, Nebulizer and Oxygen - at Night Allergies Allergies Allergy/AdvReac Type Severity Reaction Status Date / Time codeine Allergy Severe Anaphylaxis Verified 08/23/24 10:47 Iodinated Contrast Media Allergy Severe Anaphylaxis Verified 08/23/24 10:47 shellfish derived Allergy Severe Anaphylaxis Verified 08/23/24 10:47 tramadol Allergy Intermediate ITCHINESS Verified 08/23/24 10:47 pollen extracts Allergy Mild Congested Verified 08/23/24 10:47 iohexol Allergy Unknown CAN'T Verified 08/23/24 10:47 REMEMBER diphenhydramine AdvReac Severe Anxiety Verified 08/23/24 10:47 [From Benadryl] promethazine AdvReac Intermediate Anxiety Verified 08/23/24 10:47 Home Meds Home Medications Medication Instructions Recorded Confirmed levalbuterol HCl 1.25 mg/3 mL 1.25 mg inhalation Q8H PRN 01/16/23 08/23/24 solution for nebulization Shortness Of Breath Or Wheezing insulin aspart U-100 100 unit/mL See Rx Instructions .Route .COMPLEX 11/07/23 08/23/24 (3 mL) subcutaneous pen (Novolog FlexPen U-100 Insulin aspart) alprazolam 0.5 mg tablet 0.5 mg PO TID PRN ANXIETY 02/28/24 08/23/24 insulin glargine 100 unit/mL (3 50 unit subcut QAM 02/28/24 08/23/24 mL) subcutaneous pen (Lantus Solostar U-100 Insulin) ondansetron 4 mg disintegrating 4 mg PO Q8 PRN NAUSEA/VOMITING 02/28/24 08/23/24 tablet allopurinol 300 mg tablet 300 mg PO DAILY 03/23/24 08/23/24 levalbuterol tartrate 45 2 puff inhalation Q6H PRN WHEEZE 03/23/24 08/23/24 mcg/actuation aerosol inhaler quetiapine 100 mg tablet 100 mg PO HS 03/23/24 08/23/24 citalopram 20 mg tablet 20 mg PO HS 04/21/24 08/23/24 buprenorphine 4 mg-naloxone 1 mg 1 film sublingual DAILY 08/08/24 08/23/24 sublingual film guaifenesin 600 mg tablet, 600 mg PO Q12 PRN Congestion 08/08/24 08/23/24 extended release 12 hr (Mucinex) tirzepatide 5 mg/0.5 mL 5 mg subcut WK 08/08/24 08/23/24 subcutaneous pen injector (Lori) Previous Rx's Medication Instructions Recorded fluticasone propionate 50 1 spray intranasal BID nasal 09/15/23 mcg/actuation nasal congestion #0 mL spray,suspension (Flonase Allergy Relief) ipratropium bromide 0.02 % 3 ml continuous nebulization QID 10/17/23 solution for inhalation PRN shortness of breath #75 mL colchicine 0.6 mg capsule 0.6 mg PO DAILY PRN joint pain #30 03/01/24 caps budesonide 0.25 mg/2 mL suspension 0.25 mg (2 mL) inhalation BID #60 05/24/24 for nebulization mL spironolactone 100 mg tablet 100 mg PO BID17 #60 tabs 06/09/24 albuterol sulfate 90 mcg/actuation 2 puff inhalation Q4H PRN 07/12/24 aerosol inhaler Shortness Of Breath Or Wheezing #8.5 grams fluticasone fur. 200 mcg-umeclid 1 ea inhalation QAM #60 ea 07/12/24 62.5 mcg-vilant 25 mcg inhalat.powder (Trelegy Ellipta) cholecalciferol (vitamin D3) 25 25 mcg PO QAM #30 caps 08/13/24 mcg (1,000 unit) capsule enoxaparin 150 mg/mL subcutaneous 150 mg subcut Q24H #0 mL 08/13/24 syringe (Lovenox) prednisone 5 mg tablet 5 mg PO DIRECTED #9 tabs 08/13/24 bumetanide 2 mg tablet 4 mg (2 x 2 mg) PO DAILY #120 tabs 08/23/24 Results & Data (ED) Vital Signs Vital Signs - 24 hr 08/28/24 15:44 08/28/24 16:41 08/28/24 17:00 Temperature 36.6 C Temperature Source Oral Pulse Rate 108 H 100 H Pulse Rate [Left Apical] Pulse Rate [Left Finger] 97 H Respiratory Rate 22 20 22 Respiratory Effort / Characteristics Short of Breath Respiratory Depth Respiratory Pattern Blood Pressure 129/77 120/88 Blood Pressure [Right Arm] 138/104 H Blood Pressure Mean 94 98 Blood Pressure Mean [Right Arm] 115 Blood Pressure Position [Right Arm] Sitting Pulse Oximetry 96 96 93 Oxygen Delivery Method Room Air Room Air Sepsis Recent Fever Within 48 Hours No Sepsis New/Unexplained Change in Mental Status N/A Sepsis Action Taken by Nursing No Action Required 08/28/24 17:21 08/28/24 18:48 08/28/24 18:50 Temperature Temperature Source Pulse Rate 101 H 98 H Pulse Rate [Left Apical] 98 H Pulse Rate [Left Finger] Respiratory Rate 19 21 Respiratory Effort / Characteristics Non-Labored Spontaneous Respiratory Depth Normal Respiratory Pattern Regular Blood Pressure Blood Pressure [Right Arm] 139/83 Blood Pressure Mean Blood Pressure Mean [Right Arm] 101 Blood Pressure Position [Right Arm] Pulse Oximetry 95 95 Oxygen Delivery Method Room Air Room Air Sepsis Recent Fever Within 48 Hours Sepsis New/Unexplained Change in Mental Status Sepsis Action Taken by Nursing 08/28/24 19:00 Temperature Temperature Source Pulse Rate 98 H Pulse Rate [Left Apical] Pulse Rate [Left Finger] Respiratory Rate 21 Respiratory Effort / Characteristics Respiratory Depth Respiratory Pattern Blood Pressure Blood Pressure [Right Arm] Blood Pressure Mean Blood Pressure Mean [Right Arm] Blood Pressure Position [Right Arm] Pulse Oximetry 94 Oxygen Delivery Method Room Air Sepsis Recent Fever Within 48 Hours Sepsis New/Unexplained Change in Mental Status Sepsis Action Taken by Nursing Laboratory Data Attestation: I reviewed the patient's lab results. 08/28/24 15:56 08/28/24 15:56 Lab Results 08/28/24 08/28/24 Range/Units 15:56 18:49 WBC 12.30 H (4.8-10.8) K/ul RBC 5.86 H (4.20-5.40) M/uL Hgb 15.2 (12.0-16.0) g/dl Hct 48.7 H (37.0-47.0) % MCV 83.1 (80.0-100.0) fL MCH 25.9 (25.0-34.0) pg MCHC 31.2 L (32.0-36.0) g/dL RDW Std Deviation 53.7 H (36.4-46.3) fL RDW Coeff of Malick 18.6 H (11.5-14.5) % Plt Count 408 H (130-400) K/uL MPV 10.1 (9.4-12.4) fL Immature Gran % (Auto) 0.8 % Neut % (Auto) 83.5 % Lymph % (Auto) 12.8 % Teller % (Auto) 2.7 % Eos % (Auto) 0.0 % Baso % (Auto) 0.2 % Neut # (Auto) 10.27 H (1.40-6.50) K/uL Lymph # (Auto) 1.57 (1.20-3.40) K/uL Teller # (Auto) 0.33 (0.11-0.59) K/uL Eos # (Auto) 0.00 (0.00-0.50) K/uL Baso # (Auto) 0.03 (0.00-0.20) K/uL Immature Gran # (Auto) 0.10 (0.01-0.20) K/uL PT 10.8 (9.0-12.0) Seconds INR 1.0 (0.9-1.1) APTT 21 (21-31) Seconds PTT Ratio 0.8 Sodium 132 L (136-145) mmol/L Potassium 4.5 (3.5-5.1) mmol/L Chloride 89 L (98-107) mmol/L Carbon Dioxide 35 H (21-32) mmol/L Anion Gap 8 (3-11) BUN 22 (6-23) mg/dl Creatinine 1.39 H (0.6-1.2) mg/dl Est Cr Clr Drug Dosing Not Reportable eGFR 42.64 BUN/Creatinine Ratio 15.8 (10-20) Glucose 206 H (70-99(Fasting)) mg/dl Calcium 9.7 (8.6-10.3) mg/dl Magnesium 2.0 (1.7-2.4) mg/dl Total Bilirubin 0.3 (0.2-1.0) mg/dl AST 20 (13-39) U/L ALT 22 (7-52) U/L Alkaline Phosphatase 177 H (34-104) U/L Troponin I High Sens 18.7 H (0-14) pg/ml B-Natriuretic Peptide 68 (0-100) pg/ml Total Protein 7.6 (6.0-8.3) gm/dl Albumin 4.3 (3.4-5.0) gm/dl Globulin 3.3 (2.5-4.0) gm/dl Albumin/Globulin Ratio 1.3 (0.9-2) Procalcitonin 0.06 (0-0.5) ng/ml SARS-CoV-2 (PCR) NEGATIVE (Negative) Influenza Type A (PCR) Negative (Neg) Influenza Type B (PCR) Negative (Neg) RSV (RT-PCR) Negative (Neg) Administered Medications Alprazolam (Alprazolam 0.5 Mg Tablet) 0.5 mg PO TID PRN PRN Reason: ANXIETY Stop: 09/27/24 20:45 Last Admin: 08/28/24 21:20 Dose: 0.5 mg Documented By: RYANN Budesonide (Budesonide 0.25 Mg/2 Ml Vial (Pulmicort)) 0.25 mg INH BIDR [facility] Stop: 09/27/24 20:59 Last Admin: 08/28/24 21:35 Dose: 0.25 mg Documented By: EMMaxim Citalopram Hydrobromide (Citalopram 20 Mg Tab) 20 mg PO HS [facility] Stop: 09/27/24 20:59 Last Admin: 08/28/24 21:21 Dose: 20 mg Documented By: DLBrock Enoxaparin Sodium (Enoxaparin 150 Mg/Ml Syr) 150 mg SQ Q24H [facility] Stop: 09/27/24 20:59 Last Admin: 08/28/24 21:21 Dose: 150 mg Documented By: RYANN Fluticasone Propionate (Fluticasone Propionate Na Spr 16 Gm Btl) 1 sprays NA BID [facility] Stop: 09/27/24 20:59 Last Admin: 08/28/24 21:22 Dose: Not Given Documented By: RYANN Insulin Aspart (Insulin Aspart Per Unit Charge) 0 units SC ACHS [facility] Stop: 09/27/24 20:59 Last Admin: 08/28/24 21:21 Dose: Not Given Documented By: RYANN Quetiapine Fumarate (Quetiapine Fumarate 200 Mg Tab) 200 mg PO [facility] Stop: 09/27/24 21:44 Last Admin: 08/28/24 22:14 Dose: 200 mg Documented By: DLBrock Discontinued Medications Bumetanide 4 mg/ Syringe 16 mls @ 4 mls/min IV ONE ONE Stop: 08/28/24 19:01 Last Admin: 08/28/24 19:50 Dose: 4 mls/min Documented By: DMH Quetiapine Fumarate (Quetiapine Fumarate 25 Mg Tablet) 50 mg PO [facility] Stop: 09/27/24 20:59 Last Admin: 08/28/24 22:15 Dose: Not Given Documented By: RYANN Imaging Data Radiologist's Impression: Chest X-Ray 08/28/24 15:47 EXAM: X-ray chest one-view portable CLINICAL HISTORY: Chest pain PRIORS: 08 August 2024 TECHNIQUE: Frontal view chest FINDINGS: Soft tissue of the neck obscures the lung apices. Lung volumes mildly diminished. No airspace consolidation, effusion or congestive changes. Heart size is normal. No pneumothorax. Trachea is patent. Osseous structures demonstrate no acute abnormality. No radiopaque foreign body. IMPRESSION: No plain film evidence of an acute cardiopulmonary process. Electronically signed by Sheryl Rizzo 08-28-2024 5:42 PM Duplex Scan Lower Extremity Artery 08/28/24 16:28 EXAM: US arterial duplex LE BI CLINICAL HISTORY: BLE edema, cold, cyanotic/discoloration TECHNIQUE: Ultrasound examination of the bilateral lower extremities arteries with ankle brachial indices was performed in real time and duplex. One or more of the following were performed- spectral analysis, resistive index, waveform analysis, and pulsed Doppler. COMPARISON: None. FINDINGS: Vessel Flow Pattern Right Peak Velocity Right (cm/sec) Flow Pattern Left Peak Velocity Left (cm/sec) Common Femoral Artery (THREAD MARKER) Triphasic 97/7 Triphasic 81/5 Deep Femoral Artery (DPA) Triphasic 67/2 Triphasic 46 Superficial Femoral Artery (SFA) Triphasic 127/11-Proximal 61/2-Mid 66/4-Distal Triphasic 75-Proximal 63/6-Mid 54/12-Distal Popliteal Artery (POP A) Triphasic 82/19-Proximal 53/19-Distal Triphasic 69/8-Proximal 64/10-Distal Posterior Tibial Artery (ENVELOPE CUTTER), proximal Biphasic 48/6 Triphasic 44/9 Posterior Tibial Artery (ENVELOPE CUTTER), distal Biphasic 26/3 Triphasic 32 Anterior Tibial Artery (RANJIT) Triphasic 43/3-Proximal 51/8-Mid Biphasic 42-Proximal 20-Mid Peroneal Artery Biphasic 47/12-Proximal 45/8-Mid Triphasic 43/9-Proximal 39-Mid Dorsalis Pedis Artery (DPA) Biphasic 29 Triphasic 39/6 Normal triphasic waveforms were noted in both lower limb arteries except biphasic waveforms are noted in right posterior tibial, peroneal, dorsalis pedis and left anterior tibial arteries. Mild atherosclerotic changes are noted throughout the arteries of both lower limbs. No significant mural plaque or hemodynamically significant stenosis is noted in the arteries of both lower extremities. The peak systolic velocities are within normal limit bilaterally. Collateral Circulation: Evaluation of collateral vessels: No significant collateral circulation noted indicative of chronic arterial occlusion. Additional Findings: Absence of aneurysm, haematoma. IMPRESSION: 1. Tri/biphasic waveforms as described above along with mild atherosclerotic changes noted in the arteries of both lower limbs, suggestive of mild peripheral arterial disease. Details as above. 2. No evidence of hemodynamically significant stenosis or occlusion. Electronically signed by Axel Arias 08-28-2024 8:31 PM Venous Doppler Study 08/28/24 16:28 EXAMINATION: Extremity ultrasound lower bilateral CLINICAL HISTORY: Open wound, bilateral calf redness PRIORS: 02/19/2024 TECHNIQUE: Ultrasound interrogation of the deep venous structures was performed with grayscale, color Doppler, compression and augmentation. FINDINGS: The bilateral common femoral, superficial femoral, saphenous, popliteal and tibial veins demonstrate normal compressibility, frequency and augmentation. IMPRESSION: No sonographic evidence of deep venous thrombosis in the bilateral lower extremities. Electronically signed by Sheryl Rizzo 08-28-2024 6:38 PM Discharge Plan Visit Data Chief Complaint: Swelling/Edema to Extremity Stated Complaint: COPD, LEGS SWELLING AND LEAKING FLUID ED Provider: Ismael Armstrong Discharge Problem: Lower extremity edema, CHF (congestive heart failure), Mild renal insufficiency Patient Disposition: Admitted As Inpatient Condition: Fair Discharge Instructions Interventions: ED Discharge Assessment Last Done: 08/28/24 20:21 Discharge Problem: CHF (congestive heart failure) Qualifiers: Heart failure type: diastolic Heart failure chronicity: acute on chronic Q ualified Code(s): I50.33 - Acute on chronic diastolic (congestive) heart failure
[2024-08-28 16:31] LABS: Alanine Aminotransferase 22 U/L (7-52); Albumin Globulin Ratio 1.3 (0.9-2); Albumin Level 4.3 gm/dl (3.4-5.0); Alkaline Phosphatase 177 U/L (34-104); Anion Gap 8 (3-11); Aspartate Aminotransferase 20 U/L (13-39); BUN Creatinine Ratio 15.8 (10-20); Bilirubin,Total 0.3 mg/dl (0.2-1.0); Blood Urea Nitrogen 22 mg/dl (6-23); Calcium 9.7 mg/dl (8.6-10.3); Carbon Dioxide 35 mmol/L (21-32); Chloride 89 mmol/L (98-107); Globulin 3.3 gm/dl (2.5-4.0); Glucose 206 mg/dl (70-99(Fasting)); Potassium 4.5 mmol/L (3.5-5.1); Sodium 132 mmol/L (136-145); Total Protein 7.6 gm/dl (6.0-8.3)
[2024-08-28 16:38] LABS: Troponin I High Sensitivity 18.7 pg/ml (0-14)
[2024-08-28 16:43] LABS: Partial Thromboplastin Ratio 0.8; Partial Thromboplastin Time 21 Seconds (21-31); Prothrombin Time 10.8 Seconds (9.0-12.0)
--- NOTE | 2024-08-28 17:43 | XRay Report ---
EXAM: X-ray chest one-view portable CLINICAL HISTORY: Chest pain PRIORS: 08 August 2024 TECHNIQUE: Frontal view chest FINDINGS: Soft tissue of the neck obscures the lung apices. Lung volumes mildly diminished. No airspace consolidation, effusion or congestive changes. Heart size is normal. No pneumothorax. Trachea is patent. Osseous structures demonstrate no acute abnormality. No radiopaque foreign body. IMPRESSION: No plain film evidence of an acute cardiopulmonary process. Electronically signed by Sheryl Rizzo 08-28-2024 5:42 PM
--- NOTE | 2024-08-28 18:38 | Ultrasound Report ---
EXAMINATION: Extremity ultrasound lower bilateral CLINICAL HISTORY: Open wound, bilateral calf redness PRIORS: 02/19/2024 TECHNIQUE: Ultrasound interrogation of the deep venous structures was performed with grayscale, color Doppler, compression and augmentation. FINDINGS: The bilateral common femoral, superficial femoral, saphenous, popliteal and tibial veins demonstrate normal compressibility, frequency and augmentation. IMPRESSION: No sonographic evidence of deep venous thrombosis in the bilateral lower extremities. Electronically signed by Sheryl Rizzo 08-28-2024 6:38 PM
--- NOTE | 2024-08-28 19:27 | History & Physical Report ---
Date of Service August 28, 2024 Assessment & Plan (1) Acute heart failure with preserved ejection fraction (HFpEF): (2) DM II (diabetes mellitus, type II), controlled: (3) COPD (chronic obstructive pulmonary disease): (4) Opiate dependence: Plan 64-year-old female PMHx chronic hypercapnic respiratory failure, asthma, COPD, HFpEF, T2DM, anxiety and suboxone use presented to ER 08/08 for worsening shortness of breath and le swelling with weaping. She does not feel her breathing is COPD, not currently on steroids, Normal BNP w/ slight increase Cr does require supplemental O2 to maintain sats with exertion but ok at rest triple viral screen negative, CXR w/o PNA or but with some cephalization by my read. IN the ER 4 mg bumex and connie wraps applied to legs, skin of legs are reddened but not warm, pulses are palpable #Acute heart failure preserved ejection fraction. Patient be placed to parenteral Bumex therapy 4 mg a day. She given dose tonight we will follow her renal function, avoid MONICA on CKD 4. We are holding her spironolactone while using parenteral diuresis patient will be placed on low-salt diet limply Daily weights consider wound care to help with her lower extremity skin breakdown currently now with active cellulitis #COPD not in exacerbation at this point in time we will continue her inhaled medications of fluticasone umeclidinium and vilanterol, #Diabetes will continue insulin sliding scale, due to dietary changes will reduce her Lantus from 50-40 holding her Mounjaro #Depression will continue her citalopram and her anxiety medications of alprazolam #DVT PE will continue her therapy of Lovenox 150 every 24 Of note patient i has survived ovarian cancer approximately 32 years ago status post TLH/BSO with adjuvant chemotherapy treatment and history of multiple myeloma which she did stem cell transplant 2014, 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 She does not feel her breathing is COPD, not currently on steroids, Normal BNP w/ slight increase Cr does require supplemental O2 to maintain satswith exertion but ok at rest triple viral screen negative, CXR w/o PNA or but with some cephalization by my read. IN the ER 4 mg bumex and connie wraps appiled to legs, skin of legs are redened but not warm, pulses are palpable, Allergies Allergy/AdvReac Type Severity Reaction Status Date / Time codeine Allergy Severe Anaphylaxis Verified 08/23/24 10:47 Iodinated Contrast Media Allergy Severe Anaphylaxis Verified 08/23/24 10:47 shellfish derived Allergy Severe Anaphylaxis Verified 08/23/24 10:47 tramadol Allergy Intermediate ITCHINESS Verified 08/23/24 10:47 pollen extracts Allergy Mild Congested Verified 08/23/24 10:47 iohexol Allergy Unknown CAN'T Verified 08/23/24 10:47 REMEMBER diphenhydramine AdvReac Severe Anxiety Verified 08/23/24 10:47 [From Benadryl] promethazine AdvReac Intermediate Anxiety Verified 08/23/24 10:47 Home Medications Medication Instructions Recorded Confirmed Type levalbuterol HCl 1.25 mg/3 mL 1.25 mg inhalation Q8H PRN 01/16/23 08/23/24 His tory solution for nebulization Shortness Of Breath Or Wheezing fluticasone propionate 50 1 spray intranasal BID nasal 09/15/23 08/23/24 Rx mcg/actuation nasal congestion #0 mL spray,suspension (Flonase Allergy Relief) ipratropium bromide 0.02 % 3 ml continuous nebulization QID 10/17/23 08/23/24 Rx solution for inhalation PRN shortness of breath #75 mL insulin aspart U-100 100 unit/mL See Rx Instructions .Route .COMPLEX 11/07/23 08/23/24 History (3 mL) subcutaneous pen (Novolog FlexPen U-100 Insulin aspart) alprazolam 0.5 mg tablet 0.5 mg PO TID PRN ANXIETY 02/28/24 08/23/24 History insulin glargine 100 unit/mL (3 50 unit subcut QAM 02/28/24 08/23/24 History mL) subcutaneous pen (Lantus Solostar U-100 Insulin) ondansetron 4 mg disintegrating 4 mg PO Q8 PRN NAUSEA/VOMITING 02/28/24 08/23/24 History tablet colchicine 0.6 mg capsule 0.6 mg PO DAILY PRN joint pain #30 03/01/24 08/23/24 Rx caps allopurinol 300 mg tablet 300 mg PO DAILY 03/23/24 08/23/24 History levalbuterol tartrate 45 2 puff inhalation Q6H PRN WHEEZE 03/23/24 08/23/24 History mcg/actuation aerosol inhaler quetiapine 100 mg tablet 100 mg PO HS 03/23/24 08/23/24 History citalopram 20 mg tablet 20 mg PO HS 04/21/24 08/23/24 History budesonide 0.25 mg/2 mL suspension 0.25 mg (2 mL) inhalation BID #60 05/24/24 08/23/24 Rx for nebulization mL spironolactone 100 mg tablet 100 mg PO BID17 #60 tabs 06/09/24 08/23/24 Rx albuterol sulfate 90 mcg/actuation 2 puff inhalation Q4H PRN 07/12/24 08/23/24 Rx aerosol inhaler Shortness Of Breath Or Wheezing #8.5 grams fluticasone fur. 200 mcg-umeclid 1 ea inhalation QAM #60 ea 07/12/24 08/23/24 Rx 62.5 mcg-vilant 25 mcg inhalat.powder (Trelegy Ellipta) buprenorphine 4 mg-naloxone 1 mg 1 film sublingual DAILY 08/08/24 08/23/24 History sublingual film guaifenesin 600 mg tablet, 600 mg PO Q12 PRN Congestion 08/08/24 08/23/24 History extended release 12 hr (Mucinex) tirzepatide 5 mg/0.5 mL 5 mg subcut WK 08/08/24 08/23/24 History subcutaneous pen injector (Mounjaro) cholecalciferol (vitamin D3) 25 25 mcg PO QAM #30 caps 08/13/24 08/23/24 Rx mcg (1,000 unit) capsule enoxaparin 150 mg/mL subcutaneous 150 mg subcut Q24H #0 mL 08/13/24 08/23/24 Rx syringe (Lovenox) prednisone 5 mg tablet 5 mg PO DIRECTED #9 tabs 08/13/24 08/23/24 Rx bumetanide 2 mg tablet 4 mg (2 x 2 mg) PO DAILY #120 tabs 08/23/24 08/23/24 Rx Past Med/Surg History Problem List (Updated 08/16/24 @ 00:06 by Lia Knight) HARRIS (dyspnea on exertion) (Acute) Leukocytosis (Acute) Asthma-COPD overlap syndrome Acute exacerbation of chronic obstructive airways disease (Acute) Vitamin D deficiency Hyperglycemia due to diabetes mellitus (Acute) Chronic hypercapnic respiratory failure Bone marrow transplant status Bronchiectasis Allergic asthma Lower extremity edema Generalized anxiety disorder DM II (diabetes mellitus, type II), controlled COPD (chronic obstructive pulmonary disease) Dyspnea D-dimer, elevated (Acute) Palpitations (Acute) Chest pain (Acute) Bilateral knee pain CHF exacerbation (Acute) COPD exacerbation (Acute) Chest pain Right knee pain Acute exacerbation of chronic obstructive pulmonary disease (Acute) Leukocytosis (Acute) Acute hypokalemia (Acute) Diabetes Hypokalemia Tobacco abuse counseling Moderate persistent asthma Constipation Acute bronchitis Pulmonary vascular congestion Medical History B12 deficiency Pneumonia COPD exacerbation Anxiety Thrush of mouth and esophagus Heart failure with preserved ejection fraction Elevated brain natriuretic peptide (BNP) level Acute dyspnea Acute hypoxic respiratory failure Elevated troponin COVID-19 Normocytic hypochromic anemia Failure of outpatient treatment Bilateral edema of lower extremity Gout Tobacco use disorder Hematochezia History of pulmonary embolism Michela esophagitis Acute and chronic respiratory failure with hypoxia Chronic anticoagulation Obesity hypoventilation syndrome Multiple myeloma Last chemotherapy 2017 Follows with medical oncology in [facility] History of pulmonary embolism Acute exacerbation of chronic obstructive pulmonary disease Acute heart failure with preserved ejection fraction (HFpEF) Acute exacerbation of chronic obstructive pulmonary disease Tobacco abuse Opiate dependence Asthma Surgical History No pertinent past surgical history Family History Sister Asthma Social History Smoking Status: Former smoker Tobacco Type: Cigarettes Age Started Using Tobacco: 15; Cigarettes Per Day: 2-3; Second Hand Exposure: No; Do You Dip or Chew Tobacco: No; Hx Alcohol Use: No Hx Substance Use: Yes Last Used Substance: Days (ago) Last Used Substance Other:: prescribed daily Substance Use Type Other:: suboxone- chronic pain Preferred Language: Bhutanese Communication Ability: Effective Correspondence Coordinator Required: No Beliefs That Will Affect Care: None Current Living Situation: Other Current Living Situation Comment: with sister Feels Safe at Home: Yes Assistive Devices: CPAP and Oxygen - at Night Review of Systems Review of Systems: Mild to moderate distress and fatigue no headache, no visual changes no speech or swallowing issues no chest pain, pressure or palpitations Slight worsening of shortness of breath, cough with slight wheezes no abdominal pain, nausea or vomiting, diarrhea or constipation no dysuria, hematuria or frequency Show arthralgias and increasing swelling of her lower extremities with redness to her skin and her skin weeping fluid no back pain, CVA tenderness or radicular pain no focal signs of weakness or numbness or altered sensation no complaints of anxiety or depression.. Physical Exam Physical Exam: The patient appeared in her chronically ill state Vital signs as documented. Head exam is normocephalic atraumatic Neck is with 2+ JVD, thyromegaly, or carotid bruits. Lungs are diminished throughout with expiratory wheezes and rales Cardiac exam, Rhythm is regular.. No murmurs, rubs or gallops. Abdominal exam reveals normal bowel sounds, soft non tender, no masses Extremities are with bilateral lower extremity edema and weeping of fluid Neurologic exam is alert and oriented, no focal loss of strength or sensation Skin is with Bilaterally to both feet but does not appear to be consistent with cellulitis Psychologically is without concerns for anxiety or depression.. Results & Data Results & Data Vital Signs (Past 12 Hours) Vital Signs Temp Pulse Pulse Pulse Resp BP BP 08/28/24 19:00 98 H 21 08/28/24 18:50 98 H 21 139/83 08/28/24 18:48 98 H 08/28/24 17:21 101 H 19 08/28/24 17:00 100 H 22 120/88 08/28/24 16:41 97 H 20 138/104 H 08/28/24 15:44 97.9 F 108 H 22 129/77 Pulse Ox O2 Del Method 08/28/24 19:00 94 Room Air 08/28/24 18:50 95 Room Air 08/28/24 18:48 08/28/24 17:21 95 Room Air 08/28/24 17:00 93 Room Air 08/28/24 16:41 96 08/28/24 15:44 96 Room Air Laboratory Results Reviewed CBC reviewed chemistry Code Status & VTE Plan VTE Prophylaxis Plan VTE Prophylaxis will be ordered: Yes PG Care Time/CCT Total # of Minutes Spent Total Time Spent with Patient: Total time spent is greater than 50% in coordination of care (as documented) at patient's floor/unit and/or counseling patient: Coding Level of Care Code 44398 INT INP/OBS CARE 75MIN Diagnoses Acute heart failure with preserved ejection fraction (HFpEF) I50.31 DM II (diabetes mellitus, type II), controlled E11.9 COPD (chronic obstructive pulmonary disease) J44.9 COPD type: unspecified COPD Opioid dependence in remission F11.21 Substance use status: in remission (3) COPD (chronic obstructive pulmonary disease) COPD type: unspecified COPD Qualified Code(s): J44.9 - Chronic obstructive pulmonary disease, unspecified (4) Opiate dependence Substance use status: in remission Qualified Code(s): F11.21 - Opioid dependence, in remission
[2024-08-28 19:42] LABS: Influenza A virus by PCR Negative (Neg); Influenza B virus by PCR Negative (Neg); RSV by PCR Negative (Neg); SARS CoV2 RNA(COVID-19) Ceph NEGATIVE (Negative)
[2024-08-28] MEDS: BUMETANIDE 4 MG in SYRINGE 0 ML IV ONE (19:50)
--- NOTE | 2024-08-28 20:31 | Ultrasound Report ---
EXAM: US arterial duplex LE BI CLINICAL HISTORY: BLE edema, cold, cyanotic/discoloration TECHNIQUE: Ultrasound examination of the bilateral lower extremities arteries with ankle brachial indices was performed in real time and duplex. One or more of the following were performed- spectral analysis, resistive index, waveform analysis, and pulsed Doppler. COMPARISON: None. FINDINGS: Vessel Flow Pattern Right Peak Velocity Right (cm/sec) Flow Pattern Left Peak Velocity Left (cm/sec) Common Femoral Artery (HAND BENDER) Triphasic 97/7 Triphasic 81/5 Deep Femoral Artery (DPA) Triphasic 67/2 Triphasic 46 Superficial Femoral Artery (SFA) Triphasic 127/11-Proximal 61/2-Mid 66/4-Distal Triphasic 75-Proximal 63/6-Mid 54/12-Distal Popliteal Artery (POP A) Triphasic 82/19-Proximal 53/19-Distal Triphasic 69/8-Proximal 64/10-Distal Posterior Tibial Artery (AUTOMATIC SPINNING LATHE SETTER), proximal Biphasic 48/6 Triphasic 44/9 Posterior Tibial Artery (AUTOMATIC SPINNING LATHE SETTER), distal Biphasic 26/3 Triphasic 32 Anterior Tibial Artery (RANJIT) Triphasic 43/3-Proximal 51/8-Mid Biphasic 42-Proximal 20-Mid Peroneal Artery Biphasic 47/12-Proximal 45/8-Mid Triphasic 43/9-Proximal 39-Mid Dorsalis Pedis Artery (DPA) Biphasic 29 Triphasic 39/6 Normal triphasic waveforms were noted in both lower limb arteries except biphasic waveforms are noted in right posterior tibial, peroneal, dorsalis pedis and left anterior tibial arteries. Mild atherosclerotic changes are noted throughout the arteries of both lower limbs. No significant mural plaque or hemodynamically significant stenosis is noted in the arteries of both lower extremities. The peak systolic velocities are within normal limit bilaterally. Collateral Circulation: Evaluation of collateral vessels: No significant collateral circulation noted indicative of chronic arterial occlusion. Additional Findings: Absence of aneurysm, haematoma. IMPRESSION: 1. Tri/biphasic waveforms as described above along with mild atherosclerotic changes noted in the arteries of both lower limbs, suggestive of mild peripheral arterial disease. Details as above. 2. No evidence of hemodynamically significant stenosis or occlusion. Electronically signed by Axel Arias 08-28-2024 8:31 PM
[2024-08-28] MEDS ORDERED: GLUCOSE 40% GEL 15 GM TUBE PO PRN (20:46)
[2024-08-28] MEDS ORDERED: DEXTROSE 50% 50 ML SYRINGE IV PRN (20:46)
[2024-08-28] MEDS ORDERED: ACETAMINOPHEN 325 MG TAB PO PRN (20:46)
[2024-08-28] MEDS ORDERED: guaiFENesin 600 MG TABCR PO PRN (20:46)
[2024-08-28] MEDS ORDERED: IPRATROPIUM BROMIDE NEB SOLN 0.02% 0.5MG/2.5ML VIAL NEB PRN (20:46)
[2024-08-28] MEDS ORDERED: GLUCAGON FOR INJ 1 MG VIAL SQ PRN (20:46)
[2024-08-28] MEDS ORDERED: GLUCOSE 10 TAB/TUBE PO PRN (20:46)
[2024-08-28] MEDS ORDERED: CARBOHYDRATES FOR HYPOGLYCEMIA PO PRN (20:46)
[2024-08-28] MEDS: ALPRAZolam 0.5 MG TABLET PO PRN (21:20)
[2024-08-28] MEDS: ENOXAPARIN 150 MG/ML SYR SQ SCH (21:21)
[2024-08-28] MEDS: CITALOPRAM 20 MG TAB PO SCH (21:21)
[2024-08-28] MEDS: INSULIN ASPART PER UNIT CHARGE SC SCH (21:21)
[2024-08-28] MEDS: QUEtiapine FUMARATE 25 MG TABLET PO SCH (21:22)
[2024-08-28] MEDS: FLUTICASONE PROPIONATE NA SPR 16 GM BTL SCH (21:22)
[2024-08-28] MEDS: BUDESONIDE 0.25 MG/2 ML VIAL (PULMICORT) INH SCH (21:35)
[2024-08-28] MEDS: QUEtiapine FUMARATE 200 MG TAB PO SCH (22:14)
--- NOTE | 2024-08-29 07:28 | Hospitalist Progress Note ---
Date of Service August 29, 2024 Assessment & Plan (1) Acute heart failure with preserved ejection fraction (HFpEF): (2) DM II (diabetes mellitus, type II), controlled: (3) COPD (chronic obstructive pulmonary disease): (4) Opiate dependence: Plan 64-year-old female PMHx chronic hypercapnic respiratory failure, asthma, COPD, HFpEF, T2DM, anxiety and suboxone use presented to ER 08/08 for worsening shortness of breath and le swelling with weaping. She does not feel her breathing is COPD, not currently on steroids, Normal BNP w/ slight increase Cr does require supplemental O2 to maintain sats with exertion but ok at rest triple viral screen negative, CXR w/o PNA or but with some cephalization by my read. IN the ER 4 mg bumex and connie wraps applied to legs, skin of legs are reddened but not warm, pulses are palpable #Acute heart failure preserved ejection fraction. Patient be placed to parenteral Bumex therapy 4 mg a day. She given dose of metolazone in am 08/29 follow her renal function, avoid MONICA on CKD 4. We are holding her spironolactone while using parenteral diuresis patient will be placed on low- salt diet limply Daily weights consider wound care to help with her lower extremity skin breakdown currently now with active cellulitis #COPD not in exacerbation at this point in time we will continue her inhaled medications of fluticasone umeclidinium and vilanterol, #Diabetes will continue insulin sliding scale, due to dietary changes will reduce her Lantus from 50-40 holding her Mounjaro #Depression will continue her citalopram and her anxiety medications of alprazolam #DVT PE will continue her therapy of Lovenox 150 every 24 Of note patient i has survived ovarian cancer approximately 32 years ago status post TLH/BSO with adjuvant chemotherapy treatment and history of multiple myeloma which she did stem cell transplant 2014, 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 Head exam is normocephalic atraumatic Neck is with 1+ JVD, thyromegaly, or carotid bruits. Lungs are diminished throughout with expiratory wheezes and rales Cardiac exam, Rhythm is regular.. No murmurs, rubs or gallops. Abdominal exam reveals normal bowel sounds, soft non tender, no masses Extremities are with bilateral lower extremity edema and less weeping of fluid Neurologic exam is alert and oriented, no focal loss of strength or sensation Skin is with Bilaterally to both feet but does not appear to be consistent with cellulitis Psychologically is without concerns for anxiety or depression.. Results & Data Results & Data Vital Signs (Past 12 Hours) Vital Signs Temp Pulse Pulse Resp BP BP Pulse Ox 08/29/24 07:18 104 H 20 94 08/29/24 03:00 97.7 F 99 H 18 119/83 100 08/29/24 02:40 14 08/28/24 23:30 101 H 20 90 08/28/24 23:00 97 H 08/28/24 22:48 97.5 F L 100 H 18 109/74 94 08/28/24 21:49 105 H 08/28/24 21:35 102 H 18 97 08/28/24 20:48 08/28/24 20:48 97.3 F L 104 H 22 148/91 H 93 08/28/24 20:00 129/89 08/28/24 19:54 94 H 20 91 O2 Del Method O2 Flow Rate 08/29/24 07:18 Room Air 08/29/24 03:00 Room Air 08/29/24 02:40 3 08/28/24 23:30 3 08/28/24 23:00 08/28/24 22:48 Room Air 08/28/24 21:49 08/28/24 21:35 Room Air 08/28/24 20:48 Room Air 08/28/24 20:48 Room Air 08/28/24 20:00 08/28/24 19:54 Room Air Laboratory Results reviewed cbc reviewed chemistry PG Care Time/CCT Total # of Minutes Spent Total Time Spent with Patient: Total time spent is greater than 50% in coordination of care (as documented) at patient's floor/unit and/or counseling patient: Coding Level of Care Code 84448 SUB INP/OBS CARE MIN Diagnoses Acute heart failure with preserved ejection fraction (HFpEF) I50.31 DM II (diabetes mellitus, type II), controlled E11.9 COPD (chronic obstructive pulmonary disease) J44.9 COPD type: unspecified COPD Opioid dependence in remission F11.21 Substance use status: in remission (3) COPD (chronic obstructive pulmonary disease) COPD type: unspecified COPD Qualified Code(s): J44.9 - Chronic obstructive pulmonary disease, unspecified (4) Opiate dependence Substance use status: in remission Qualified Code(s): F11.21 - Opioid dependence, in remission
[2024-08-29 08:04] LABS: Hematocrit (blood only) 48.5 % (37.0-47.0); Hemoglobin 15.5 g/dl (12.0-16.0); Mean Corpuscular Hemoglobin 26.4 pg (25.0-34.0); Mean Corpuscular Volume 82.5 fL (80.0-100.0); Mean Platelet Volume 9.6 fL (9.4-12.4); Platelet Count 346 K/uL (130-400); RDW Coefficient of Variation 18.3 % (11.5-14.5); RDW Standard Deviation 53.1 fL (36.4-46.3); Red Blood Count 5.88 M/uL (4.20-5.40); White Blood Count 11.66 K/ul (4.8-10.8)
[2024-08-29 08:26] LABS: BUN Creatinine Ratio 17.7 (10-20); Calcium 9.3 mg/dl (8.6-10.3); Creatinine Clr Calc Pharmacy 47.6 ml/min; Potassium 4.2 mmol/L (3.5-5.1)
[2024-08-29] MEDS: metOLazone 2.5 MG TABLET PO ONE (08:27)
[2024-08-29] MEDS: allopurinoL 300 MG TAB PO SCH (08:28)
[2024-08-29] MEDS: UMECLIDINIUM/VILANTEROL 62.5/25MCG 7 PUFFS/INHALER INH SCH (08:28)
[2024-08-29] MEDS: CHOLECALCIFEROL 25 MCG (1000 UNITS) TAB PO SCH (08:28)
[2024-08-29] MEDS: BUMETANIDE 4 MG in SYRINGE 0 ML IV SCH (08:28)
[2024-08-29] MEDS: FLUTICASONE FUROATE 200MCG 14 PUFFS/INHALER INH SCH (08:29)
[2024-08-29] MEDS: BUPRENORPHINE/NALOXONE 8/2 MG TAB SL SCH (08:34)
[2024-08-29] MEDS: LANTUS PER UNIT CHARGE SQ SCH (08:34)
--- NOTE | 2024-08-29 08:48 | Electrocardiogram Report ---
Test Reason : Blood Pressure : */* mmHG Vent. Rate : 104 BPM Atrial Rate : 104 BPM P-R Int : 154 ms QRS Dur : 68 ms QT Int : 316 ms P-R-T Axes : 40 0 56 degrees QTcB Int : 415 ms Sinus tachycardia Inferior infarct , age undetermined Anterior infarct (cited on or before 28-Jul-2023) Abnormal ECG When compared with ECG of 08-Aug-2024 17:25, Fusion complexes are no longer Present Premature supraventricular complexes are no longer Present Inferior infarct is now Present Confirmed by Moraima Georges (Jai) on 08/29/2024 8:48:10 AM Referred By: REFERRED SELF Confirmed By: Moraima Georges
[2024-08-29] MEDS ORDERED: NON-FORMULARY MEDICATION (Fluticasone-Umeclidin-Vilanter [Trelegy Ellipta] 200-62.5-25 mcg INH SCH (09:00)
[2024-08-29] MEDS: ALBUTEROL HFA 8 GM INHALER INH PRN (13:43)
[2024-08-30] MEDS: predniSONE 5 MG TAB PO ONE (10:07)
[2024-08-30] MEDS: ONDANSETRON INJ 2 MG/ML 2 ML VIAL IV PRN (14:15)
--- NOTE | 2024-08-30 18:26 | Hospitalist Progress Note ---
Date of Service August 30, 2024 Assessment & Plan (1) Acute heart failure with preserved ejection fraction (HFpEF): (2) DM II (diabetes mellitus, type II), controlled: (3) COPD (chronic obstructive pulmonary disease): (4) Opiate dependence: Plan 64-year-old female PMHx chronic hypercapnic respiratory failure, asthma, COPD, HFpEF, T2DM, anxiety and suboxone use presented to ER 08/08 for worsening shortness of breath and le swelling with weaping. She does not feel her breathing is COPD, not currently on steroids, Normal BNP w/ slight increase Cr does require supplemental O2 to maintain sats with exertion but ok at rest triple viral screen negative, CXR w/o PNA or but with some cephalization by my read. IN the ER 4 mg bumex and connie wraps applied to legs, skin of legs are reddened but not warm, pulses are palpable #Acute heart failure preserved ejection fraction. Patient be placed to parenteral Bumex therapy 4 mg a day. She given dose of metolazone in am 5 follow her renal function, avoid MONICA on CKD 4. We are holding her spironolactone while using parenteral diuresis patient will be placed on low- salt diet, Daily weights consider wound care to help with her lower extremity skin breakdown currently now with active cellulitis #COPD not in exacerbation at this point in time we will continue her inhaled medications of fluticasone umeclidinium and vilanterol, #Diabetes will continue insulin sliding scale, due to dietary changes will reduce her Lantus from 50-40 holding her Mounjaro #Depression will continue her citalopram and her anxiety medications of alprazolam #DVT PE will continue her therapy of Lovenox 150 every 24 Of note patient i has survived ovarian cancer approximately 32 years ago status post TLH/BSO with adjuvant chemotherapy treatment and history of multiple myeloma which she did stem cell transplant 2014, unprovoked VTE in 2020 with rec urrence and has had an expansile lesion of her right fourth rib for many months last PET scan obtained of the site did not show radiotracer uptake Admission and Anticipated Discharge Date Admission Date: August 28, 2024 Subjective continues without much diuresis, periphearl edema may not be as much dependent on fluid overload, but cor pulmonale, did try metolazone without much affect, re educated that her edema may not respond to diuresis, continue to reinforce leg elevation, consider wound care for tubigrip consideration Physical Exam Physical Exam: The patient appeared in her chronically ill state Vital signs as documented. Head exam is normocephalic atraumatic Neck is with 1+ JVD, thyromegaly, or carotid bruits. Lungs are diminished throughout with expiratory wheezes and rales Cardiac exam, Rhythm is regular.. No murmurs, rubs or gallops. Abdominal exam reveals normal bowel sounds, soft non tender, no masses Extremities are with bilateral lower extremity edema and less weeping of fluid Neurologic exam is alert and oriented, no focal loss of strength or sensation Skin is with Bilaterally to both feet but does not appear to be consistent with cellulitis Psychologically is without concerns for anxiety or depression.. Results & Data Results & Data Vital Signs (Past 12 Hours) Vital Signs Temp Pulse Pulse Pulse Resp BP Pulse Ox 08/30/24 18:05 98.6 F 108 H 18 125/77 98 08/30/24 17:36 106 H 08/30/24 15:47 08/30/24 15:46 98.1 F 102 H 18 132/89 91 08/30/24 13:28 109 H 18 89 L 08/30/24 11:00 97.5 F L 105 H 16 110/78 91 08/30/24 08:00 98.2 F 115 H 20 114/69 95 08/30/24 07:31 101 H 22 94 08/30/24 07:28 08/30/24 07:00 106 H O2 Del Method FiO2 08/30/24 18:05 Room Air 08/30/24 17:36 08/30/24 15:47 Room Air 08/30/24 15:46 Room Air 08/30/24 13:28 Room Air 21 08/30/24 11:00 Room Air 08/30/24 08:00 Room Air 08/30/24 07:31 Room Air 08/30/24 07:28 Room Air 08/30/24 07:00 PG Care Time/CCT Total # of Minutes Spent Total Time Spent with Patient: Total time spent is greater than 50% in coordination of care (as documented) at patient's floor/unit and/or counseling patient: Coding Level of Care Code 28592 SUB INP/OBS CARE 2/35MIN Diagnoses Acute heart failure with preserved ejection fraction (HFpEF) I50.31 DM II (diabetes mellitus, type II), controlled E11.9 COPD (chronic obstructive pulmonary disease) J44.9 COPD type: unspecified COPD Opioid dependence in remission F11.21 Substance use status: in remission (3) COPD (chronic obstructive pulmonary disease) COPD type: unspecified COPD Qualified Code(s): J44.9 - Chronic obstructive pulmonary disease, unspecified (4) Opiate dependence Substance use status: in remission Qualified Code(s): F11.21 - Opioid dependence, in remission
[2024-08-31 07:02] LABS: Hematocrit (blood only) 43.5 % (37.0-47.0); Hemoglobin 13.9 g/dl (12.0-16.0); Mean Corpuscular Volume 81.3 fL (80.0-100.0); Mean Platelet Volume 9.3 fL (9.4-12.4); Platelet Count 316 K/uL (130-400); RDW Coefficient of Variation 17.5 % (11.5-14.5); RDW Standard Deviation 50.8 fL (36.4-46.3); Red Blood Count 5.35 M/uL (4.20-5.40); White Blood Count 11.01 K/ul (4.8-10.8)
[2024-08-31 07:25] LABS: BUN Creatinine Ratio 32.1 (10-20); Creatinine Clr Calc Pharmacy 55.5 ml/min; Potassium 3.3 mmol/L (3.5-5.1)
[2024-08-31] MEDS: predniSONE 5 MG TAB PO SCH (08:06)
[2024-08-31] MEDS: POTASSIUM CHLORIDE 10 MEQ TABCR PO STA (09:30)
--- NOTE | 2024-08-31 14:42 | Hospitalist Progress Note ---
Date of Service August 31, 2024 Assessment & Plan (1) Odynophagia: (2) COPD (chronic obstructive pulmonary disease): (3) Lower extremity edema: (4) Opiate dependence: (5) Hyponatremia: (6) Hypokalemia: (7) Diabetes mellitus type 2, uncontrolled: (8) Current chronic use of systemic steroids: (9) Generalized anxiety disorder: (10) Multiple myeloma: (11) History of pulmonary embolism: (12) Tobacco abuse: Plan 64yo female with h/o chronic hypercapnic respiratory failure, severe asthma/COPD with PO steroid dependency, chronic HFpEF, T2DM, anxiety and chronic suboxone use presented to ER 08/08 for worsening shortness of breath and LE swelling. She does not feel her breathing is COPD, not currently on steroids, Normal BNP w/ slight increase Cr does require supplemental O2 to maintain sats with exertion but ok at rest #Odynophagia - -this is her biggest complaint today -given her chronic steroid use could easily have candidal esophagitis; erosive esophagitis from GERD also possible -add PPI -add carafate QID -[facility] ask [facility] to consult for consideration of EGD #LE edema - -she is very frustrated by her edema -it is not responsive to high-dose diuretics -TSH is wnl -no significant CKD or proteinuria -no liver disease -last echo with preserved EF and normal RV function although she likely has pulm HTN as a result of her lung disease and that can contribute -venous study in 03/2024 did not show venous reflux disease of either leg -[id number] would benefit from compression - custom fit stockings would be best; will reach out to [facility] to see if we can get her back to vascular clinic with Dr Meehan -labs today would suggest she is on the way to having mild intravascular volume depletion - place diuretics on hold; repeat labs am #Acute heart failure preserved ejection fraction - -at this point she is compensated -see "LE Edema" above -place diuretics on hold #COPD - severe - steroid dependent - -not in exacerbation -cont prednisone 15mg daily -cont inhaled medications of fluticasone, umeclidinium, and vilanterol -she feels congested in the chest - offered saline nebs but couldn't tolerate them per records -add mucinex 1200mg BID -consider chest PT -consider 3x's/week azithromycin -consider daliresp #Diabetes - -uncontrolled -add AM NPH 15 units to cover her prednisone -tighten novolog parameters -cont lantus #Depression and AYAN - -continue citalopram -continue alprazolam prn -consider buspar #DVT + PE history - -unprovoked - 2020 -continue Lovenox but adjust to 135mg daily as suggested by pharmacy #h/o ovarian cancer remotely - -s/p QUAN/BSO 32 years ago -recent PET-CT without any ca recurrence #h/o multiple myeloma - -s/p stem cell transplant 2014 #h/o expansile lesion of her right fourth rib - -PET/CT 2024 did not show radiotracer uptake await GI eval Admission and Anticipated Discharge Date Admission Date: August 28, 2024 Subjective patient sitting in the chair upon arrival multiple complaints including - 1. ongoing LE edema - despite taking 4mg of IV bumex this am she "didn't pee very much". The edema is frustrating to her. She has never been fit for custo m-fit compression stockings. She only has OTC stockings. She mentioned they are hard to get on at home. 2. ongoing chest congestion and HARRIS. States she can't use the saline nebs - "had a reaction I think - please check my chart." Diuresis hasn't helped her breathing. 3. odynophagia - present for about 6 weeks. Hot soup, other items causes chest discomfort and esophageal pain. Some difficult swallowing as well. Has not had EGD in many years. Does not take antacids. No recent change in appetite. She is agreeable to getting EGD if needed. Review of Systems Review of Systems: gen - no fevers or chills cv - no PND pulm - cough, wheezing, HARRIS GI - no abd pain or vomiting Physical Exam Physical Exam: gen - sitting in chair, anxious, but NAD neck - no JVD mouth - MMM, no obvious thrush heart - RRR, s1 s2 lungs - mild end-exp wheezes b/l, mild fine rales b/l bases, no distress or increased work of breathing abd - soft NT ND BS+ ext - 1-2+ edema b/l shins and feet; pulses b/l feet 2+; dressings intact right dailey psych - a/o x 3, very anxious skin - venous pooling in feet leading to purple/very dark skin color; cap refill is about 2 seconds b/l feet Results & Data Results & Data Vital Signs (Past 12 Hours) Vital Signs Temp Pulse Pulse Resp BP Pulse Ox O2 Del Method 08/31/24 14:36 36.8 C 104 H 18 121/86 94 Room Air 08/31/24 07:54 36.9 C 78 18 108/76 90 Room Air 08/31/24 07:16 74 16 91 Room Air 08/31/24 07:12 Room Air 08/31/24 04:23 21 O2 Flow Rate 08/31/24 14:36 08/31/24 07:54 08/31/24 07:16 08/31/24 07:12 08/31/24 04:23 3 Laboratory Results Laboratory Results 08/31/24 08/31/24 08/31/24 06:10 06:19 06:43 WBC 11.01 H RBC 5.35 Hgb 13.9 Hct 43.5 MCV 81.3 MCH 26.0 MCHC 32.0 RDW Std Deviation 50.8 H RDW Coeff of Malick 17.5 H Plt Count 316 MPV 9.3 L Sodium 130 L Potassium 3.3 L D Chloride 88 L Carbon Dioxide 35 H Anion Gap 7 BUN 34 H Creatinine 1.06 Est Cr Clr Drug Dosing 55.5 eGFR 59.03 BUN/Creatinine Ratio 32.1 H Glucose 172 H POC Glucose 188 H Calcium 9.0 08/31/24 08/31/24 08/31/24 07:54 11:22 16:34 WBC RBC Hgb Hct MCV MCH MCHC RDW Std Deviation RDW Coeff of Malick Plt Count MPV Sodium Potassium Chloride Carbon Dioxide Anion Gap BUN Creatinine Est Cr Clr Drug Dosing eGFR BUN/Creatinine Ratio Glucose POC Glucose 180 H 240 H 274 H Calcium PG Care Time/CCT Total # of Minutes Spent Total Time Spent with Patient: Total time spent is greater than 50% in coordination of care (as documented) at patient's floor/unit and/or counseling patient: Coding Level of Care Code 07254 SUB INP/OBS CARE 3/50MIN Diagnoses Odynophagia R13.10 COPD (chronic obstructive pulmonary disease) J44.9 COPD type: unspecified COPD Lower extremity edema R60.0 Opioid dependence in remission F11.21 Substance use status: in remission Hyponatremia E87.1 Hypokalemia E87.6 Diabetes mellitus type 2, uncontrolled Current chronic use of systemic steroids Z79.52 Generalized anxiety disorder F41.1 Multiple myeloma C90.00 Multiple myeloma remission status: unspecified History of pulmonary embolism Z86.711 Tobacco abuse Z72.0 (2) COPD (chronic obstructive pulmonary disease) COPD type: unspecified COPD Qualified Code(s): J44.9 - Chronic obstructive pulmonary disease, unspecified (4) Opiate dependence Substance use status: in remission Qualified Code(s): F11.21 - Opioid dependence, in remission (10) Multiple myeloma Multiple myeloma remission status: unspecified Qualified Code(s): C90.00 - Multiple myeloma not having achieved remission
--- NOTE | 2024-08-31 14:58 | Gastrointestinal Consultation ---
Date of Consultation August 31, 2024 Assessment & Plan (1) Odynophagia: 64 year old female with history of ovarian CA, recurrent admissions for COPD exacerbation, CHF, T2DM, acute on chronic respiratory failure with hypoxia, gout, multiple myeloma, diabetes mellitus, generalized anxiety disorder, tobacco abuse, history of PE, obesity hypoventilation syndrome, anticoagulated w/ Lovenox admitted w/ acute heart failure preserved ejection fraction - GI asked to evaluate for odynophagia. History of mei infections - Diagnostic EGD discussed - She has concerns about risk of procedure given her cardiopulmonary standpoint - She is requesting to continue empiric therapy for mei - Plan for EGD Thursday for ongoing symptoms I spent a total of 60 minutes on the date of service in review of patient's record, and previously obtained information in person and appropriate medical visit, discussion and education of plan, with patient and/or caregiver, placing orders for tests/referral/procedures as medically necessary and documentation of pertinent clinical information in patient's medical records for their visit today. Thank you for allowing us to participate in the care of this patient. Please call with any acute changes, questions or concerns. Please see addendum below with additional recommendation from my supervising physician. Supervising Physician Co-Signing Physician Notes I personally saw and examined the patient. I have reviewed the chart and agree with the documentation provided by the SYSTEM SOFTWARE DEVELOPER including discussion about the assessment, treatment and plan. Briefly, 64 year old female with history of ova jose CA, recurrent admissions for COPD exacerbation, CHF, T2DM, acute on chronic respiratory failure with hypoxia, gout, multiple myeloma, diabetes mellitus, generalized anxiety disorder, tobacco abuse, history of PE, obesity hypoventilation syndrome, anticoagulated w/ Lovenox admitted w/ acute heart failure preserved ejection fraction - GI asked to evaluate for odynophagia. Notes this has been episodic and ongoing for quite some times. Recently started therapy for mei. Patient would like to wait to see if fluconazole will make a difference. If she is not improving by Thursday we will do an endoscopy. I explained the risks and benefits and she is at this point agreeable on Thursday but this can also change. History of Present Illness Reason for Consultation: odynophagia Requesting Physician: Toni Abreu MD Attending Physician: Toni Abreu MD History of Present Illness 64 year old female with history of ovarian CA, recurrent admissions for COPD exa cerbation, CHF, T2DM, acute on chronic respiratory failure with hypoxia, gout, multiple myeloma, diabetes mellitus, generalized anxiety disorder, tobacco abuse, history of PE, obesity hypoventilation syndrome, anticoagulated w/ Lovenox admitted w/ acute heart failure preserved ejection fraction - GI asked to evaluate for odynophagia. Notes this has been episodic and ongoing for quite some times. Recently started therapy for mei. Is hopeful this will help. EGD: maybe 5+ years ago at [facility] Colonoscopy : at [facility] Allergies Allergy/AdvReac Type Severity Reaction Status Date / Time codeine Allergy Severe Anaphylaxis Verified 08/23/24 10:47 Iodinated Contrast Media Allergy Severe Anaphylaxis Verified 08/23/24 10:47 shellfish derived Allergy Severe Anaphylaxis Verified 08/23/24 10:47 tramadol Allergy Intermediate ITCHINESS Verified 08/23/24 10:47 pollen extracts Allergy Mild Congested Verified 08/23/24 10:47 iohexol Allergy Unknown CAN'T Verified 08/23/24 10:47 REMEMBER diphenhydramine AdvReac Severe Anxiety Verified 08/23/24 10:47 [From Benadryl] promethazine AdvReac Intermediate Anxiety Verified 08/23/24 10:47 Home Medications Medication Instructions Recorded Confirmed Type levalbuterol HCl 1.25 mg/3 mL 1.25 mg inhalation Q8H PRN 01/16/23 08/23/24 History solution for nebulization Shortness Of Breath Or Wheezing fluticasone propionate 50 1 spray intranasal BID nasal 09/15/23 08/23/24 Rx mcg/actuation nasal congestion #0 mL spray,suspension (Flonase Allergy Relief) ipratropium bromide 0.02 % 3 ml continuous nebulization QID 10/17/23 08/23/24 Rx solution for inhalation PRN shortness of breath #75 mL insulin aspart U-100 100 unit/mL See Rx Instructions .Route .COMPLEX 11/07/23 08/23/24 History (3 mL) subcutaneous pen (Novolog FlexPen U-100 Insulin aspart) alprazolam 0.5 mg tablet 0.5 mg PO TID PRN ANXIETY 02/28/24 08/23/24 History insulin glargine 100 unit/mL (3 50 unit subcut QAM 11/03/24 04/29/25 History mL) subcutaneous pen (Lantus Solostar U-100 Insulin) ondansetron 4 mg disintegrating 4 mg PO Q8 PRN NAUSEA/VOMITING 02/28/24 08/23/24 History tablet colchicine 0.6 mg capsule 0.6 mg PO DAILY PRN joint pain #30 03/01/24 08/23/24 Rx caps allopurinol 300 mg tablet 300 mg PO DAILY 03/23/24 08/23/24 History levalbuterol tartrate 45 2 puff inhalation Q6H PRN WHEEZE 03/23/24 08/23/24 History mcg/actuation aerosol inhaler quetiapine 100 mg tablet 100 mg PO HS 03/23/24 08/23/24 History citalopram 20 mg tablet 20 mg PO HS 04/21/24 08/23/24 History budesonide 0.25 mg/2 mL suspension 0.25 mg (2 mL) inhalation BID #60 05/24/24 08/23/24 Rx for nebulization mL spironolactone 100 mg tablet 100 mg PO BID17 #60 tabs 06/09/24 08/23/24 Rx albuterol sulfate 90 mcg/actuation 2 puff inhalation Q4H PRN 07/12/24 08/23/24 Rx aerosol inhaler Shortness Of Breath Or Wheezing #8.5 grams fluticasone fur. 200 mcg-umeclid 1 ea inhalation QAM #60 ea 07/12/24 08/23/24 Rx 62.5 mcg-vilant 25 mcg inhalat.powder (Trelegy Ellipta) buprenorphine 4 mg-naloxone 1 mg 1 film sublingual DAILY 08/08/24 08/23/24 History sublingual film guaifenesin 600 mg tablet, 600 mg PO Q12 PRN Congestion 08/08/24 08/23/24 History extended release 12 hr (Mucinex) tirzepatide 5 mg/0.5 mL 5 mg subcut WK 08/08/24 08/23/24 History subcutaneous pen injector (Lori) cholecalciferol (vitamin D3) 25 25 mcg PO QAM #30 caps 08/13/24 08/23/24 Rx mcg (1,000 unit) capsule enoxaparin 150 mg/mL subcutaneous 150 mg subcut Q24H #0 mL 08/13/24 08/23/24 Rx syringe (Lovenox) prednisone 5 mg tablet 5 mg PO DIRECTED #9 tabs 08/13/24 08/23/24 Rx bumetanide 2 mg tablet 4 mg (2 x 2 mg) PO DAILY #120 tabs 08/23/24 08/23/24 Rx Patient History Medical History B12 deficiency Pneumonia COPD exacerbation Anxiety Thrush of mouth and esophagus Heart failure with preserved ejection fraction Elevated brain natriuretic peptide (BNP) level Acute dyspnea Acute hypoxic respiratory failure Elevated troponin COVID-19 Normocytic hypochromic anemia Failure of outpatient treatment Bilateral edema of lower extremity Gout Tobacco use disorder Hematochezia History of pulmonary embolism Mei esophagitis Acute and chronic respiratory failure with hypoxia Chronic anticoagulation Obesity hypoventilation syndrome Multiple myeloma Last chemotherapy 2016 Follows with medical oncology in [facility] History of pulmonary embolism Acute exacerbation of chronic obstructive pulmonary disease Acute heart failure with preserved ejection fraction (HFpEF) Acute exacerbation of chronic obstructive pulmonary disease Tobacco abuse Opiate dependence Asthma Surgical History No pertinent past surgical history Family History Sister Asthma Social History Smoking Status: Current every day smoker Tobacco Type: Cigarettes Age Started Using Tobacco: 15; Cigarettes Per Day: 4; Second Hand Exposure: No; Do You Dip or Chew Tobacco: No; Hx Alcohol Use: No Hx Substance Use: No Preferred Language: Wallisian Communication Ability: Effective Operations Manager Station Required: No Beliefs That Will Affect Care: None Current Living Situation: Family Current Living Situation Comment: [place] Feels Safe at Home: Yes Assistive Devices: CPAP and Oxygen - Continuous Review of Systems Review of Systems: All other findings negative except as noted in HPI. Physical Exam Constitutional: WD/WN, vitals as above Respiratory: normal respiratory effort Cardiovascular: Rate/Rhythm: regular rate Gastrointestinal (Abdomen): normal bowel sounds, soft, nontender, no hepatosplenomegaly Skin: no rashes, warm and dry Results & Data Vital Signs (Past 12 Hours) Vital Signs Temp Pulse Pulse Resp BP Pulse Ox O2 Del Method 08/31/24 14:36 98.2 F 104 H 18 121/86 94 Room Air 08/31/24 07:54 98.4 F 78 18 108/76 90 Room Air 08/31/24 07:16 74 16 91 Room Air 08/31/24 07:12 Room Air 08/31/24 04:23 21 O2 Flow Rate 08/31/24 14:36 08/31/24 07:54 08/31/24 07:16 08/31/24 07:12 08/31/24 04:23 3 Laboratory Results 08/31/24 08/31/24 08/31/24 Range/Units 11:22 07:54 06:43 WBC 11.01 H (4.8-10.8) K/ul RBC 5.35 (4.20-5.40) M/uL Hgb 13.9 (12.0-16.0) g/dl Hct 43.5 (37.0-47.0) % MCV 81.3 (80.0-100.0) fL MCH 26.0 (25.0-34.0) pg MCHC 32.0 (32.0-36.0) g/dL RDW Std Deviation 50.8 H (36.4-46.3) fL RDW Coeff of Malick 17.5 H (11.5-14.5) % Plt Count 316 (130-400) K/uL MPV 9.3 L (9.4-12.4) fL Sodium (136-145) mmol/L Potassium (3.5-5.1) mmol/L Chloride (98-107) mmol/L Carbon Dioxide (21-32) mmol/L Anion Gap (3-11) BUN (6-23) mg/dl Creatinine (0.6-1.2) mg/dl Est Cr Clr Drug Dosing ml/min eGFR BUN/Creatinine Ratio (10-20) Glucose (70-99(Fasting)) mg/dl POC Glucose 240 H 180 H (70-99) mg/dl Calcium (8.6-10.3) mg/dl 08/31/24 08/31/24 08/30/24 Range/Units 06:19 06:10 20:24 WBC (4.8-10.8) K/ul RBC (4.20-5.40) M/uL Hgb (12.0-16.0) g/dl Hct (37.0-47.0) % MCV (80.0-100.0) fL MCH (25.0-34.0) pg MCHC (32.0-36.0) g/dL RDW Std Deviation (36.4-46.3) fL RDW Coeff of Malick (11.5-14.5) % Plt Count (130-400) K/uL MPV (9.4-12.4) fL Sodium 130 L (136-145) mmol/L Potassium 3.3 L D (3.5-5.1) mmol/L Chloride 88 L (98-107) mmol/L Carbon Dioxide 35 H (21-32) mmol/L Anion Gap 7 (3-11) BUN 34 H (6-23) mg/dl Creatinine 1.06 (0.6-1.2) mg/dl Est Cr Clr Drug Dosing 55.5 ml/min eGFR 59.03 BUN/Creatinine Ratio 32.1 H (10-20) Glucose 172 H (70-99(Fasting)) mg/dl POC Glucose 188 H 299 H (70-99) mg/dl Calcium 9.0 (8.6-10.3) mg/dl /10/19 Range/Units 16:35 WBC (4.8-10.8) K/ul RBC (4.20-5.40) M/uL Hgb (12.0-16.0) g/dl Hct (37.0-47.0) % MCV (80.0-100.0) fL MCH (25.0-34.0) pg MCHC (32.0-36.0) g/dL RDW Std Deviation (36.4-46.3) fL RDW Coeff of Malick (11.5-14.5) % Plt Count (130-400) K/uL MPV (9.4-12.4) fL Sodium (136-145) mmol/L Potassium (3.5-5.1) mmol/L Chloride (98-107) mmol/L Carbon Dioxide (21-32) mmol/L Anion Gap (3-11) BUN (6-23) mg/dl Creatinine (0.6-1.2) mg/dl Est Cr Clr Drug Dosing ml/min eGFR BUN/Creatinine Ratio (10-20) Glucose (70-99(Fasting)) mg/dl POC Glucose 271 H (70-99) mg/dl Calcium (8.6-10.3) mg/dl PG Care Time/CCT Total # of Minutes Spent Total Time Spent with Patient: Total time spent is greater than 50% in coordination of care (as documented) at patient's floor/unit and/or counseling patient: Coding Level of Care Code 38184 INT INP/OBS CARE 2/55MIN Diagnoses Odynophagia R13.10
[2024-08-31] MEDS: PANTOprazole 40 MG TAB PO STA (15:15)
[2024-08-31] MEDS: SUCRALFATE 1 GM/10 ML UDC PO SCH (15:15)
[2024-08-31] MEDS: ENOXAPARIN 150 MG/ML SYR SQ SCH (20:23)
[2024-08-31] MEDS: guaiFENesin 600 MG TABCR PO SCH (20:29)
[2024-09-01 06:50] LABS: BUN Creatinine Ratio 42.7 (10-20); Calcium 9.2 mg/dl (8.6-10.3); Creatinine Clr Calc Pharmacy 61.2 ml/min; Potassium 3.5 mmol/L (3.5-5.1)
[2024-09-01 07:21] VITALS: BP 131/78; TEMP 97.5
[2024-09-01] MEDS: INSULIN HUMAN NPH SC SCH (08:34)
[2024-09-01 08:39] VITALS: PULSE 98; RESP 18; O2SAT 97
[2024-09-01] MEDS: PANTOprazole 40 MG TAB PO SCH (09:13)
--- NOTE | 2024-09-01 10:38 | Gastroenterology Progress Note ---
Date of Service September 01, 2024 Assessment & Plan (1) Odynophagia: Plan: 64 year old female with history of ovarian CA, recurrent admissions for COPD exacerbation, CHF, T2DM, acute on chronic respiratory failure with hypoxia, gout, multiple myeloma, diabetes mellitus, generalized anxiety disorder, tobacco abuse, history of PE, obesity hypoventilation syndrome, anticoagulated w/ Lovenox admitted w/ acute heart failure preserved ejection fraction - GI asked to evaluate for odynophagia. History of mei infections - Diagnostic EGD discussed - She has concerns about risk of procedure given her cardiopulmonary standpoint - NPO after midnight - Plan for EGD Thursday for ongoing symptoms We appreciate assistance in the management of any serological abnormality and corrections to include: hemoglobin >7, INR <2, platelets >50,000, potassium levels >3.5 but <5.3, and sodium levels within 5 points of the reference range prior to endoscopic evaluation. Thank you for allowing us to participate in the care of this patient. Please call with any acute changes, questions or concerns. Please see addendum below with additional recommendation from my supervising physician. I spent a total of 30 minutes on the date of service in review of patient's record, and previously obtained information in person and appropriate medical visit, discussion and education of plan, with patient and/or caregiver, placing orders for tests/referral/procedures as medically necessary and documentation of pertinent clinical information in patient's medical records for their visit today. Admission and Anticipated Discharge Date Admission Date: August 28, 2024 Supervising Physician Co-Signing Physician Notes I personally saw and examined the patient. I have reviewed the chart and agree with the documentation provided by the UPHOLSTERY REPAIRER including discussion about the assessment, treatment and plan. Briefly, again patient felt better on fluconazole and did not want the EGD. GI will sign off please call us back if any questions Subjective Pt was seen and evaluated, chart reviewed. Wishes to discuss w/ primary team and pulmonary prior to EGD. Ongoing odynophagia. Review of Systems Review of Systems: All other findings negative except as noted in HPI. Physical Exam Constitutional: WD/WN, vitals as above Gastrointestinal (Abdomen): normal bowel sounds, soft, nontender, no hepatosplenomegaly Skin: no rashes, warm and dry Results & Data Results & Data Vital Signs (Past 12 Hours) Vital Signs Temp Pulse Pulse Pulse Resp BP BP 09/01/24 08:39 98 H 18 09/01/24 07:20 97.5 F L 91 H 16 131/78 09/01/24 02:56 90 16 08/31/24 23:10 92 H 14 08/31/24 22:43 08/31/24 22:41 97.3 F L 100 H 18 123/82 Pulse Ox O2 Del Method O2 Flow Rate 09/01/24 08:39 97 Room Air 09/01/24 07:20 96 Room Air 09/01/24 02:56 95 3 08/31/24 23:10 95 3 08/31/24 22:43 Room Air 08/31/24 22:41 93 CPAP Laboratory Results 09/01/24 09/01/24 08/31/24 Range/Units 07:22 06:05 20:24 Sodium 132 L (136-145) mmol/L Potassium 3.5 (3.5-5.1) mmol/L Chloride 90 L (98-107) mmol/L Carbon Dioxide 33 H (21-32) mmol/L Anion Gap 9 (3-11) BUN 41 H (6-23) mg/dl Creatinine 0.96 (0.6-1.2) mg/dl Est Cr Clr Drug Dosing 61.2 ml/min eGFR 66.48 BUN/Creatinine Ratio 42.7 H (10-20) Glucose 172 H 218 H (70-99(Fasting)) mg/dl POC Glucose 186 H (70-99) mg/dl Calcium 9.2 (8.6-10.3) mg/dl 08/31/24 08/31/24 08/31/24 Range/Units 20:05 20:04 20:03 Sodium (136-145) mmol/L Potassium (3.5-5.1) mmol/L Chloride (98-107) mmol/L Carbon Dioxide (21-32) mmol/L Anion Gap (3-11) BUN (6-23) mg/dl Creatinine (0.6-1.2) mg/dl Est Cr Clr Drug Dosing ml/min eGFR BUN/Creatinine Ratio (10-20) Glucose (70-99(Fasting)) mg/dl POC Glucose 247 H 554 H* 359 H* (70-99) mg/dl Calcium (8.6-10.3) mg/dl 08/31/24 08/31/24 Range/Units 16:34 11:22 Sodium (136-145) mmol/L Potassium (3.5-5.1) mmol/L Chloride (98-107) mmol/L Carbon Dioxide (21-32) mmol/L Anion Gap (3-11) BUN (6-23) mg/dl Creatinine (0.6-1.2) mg/dl Est Cr Clr Drug Dosing ml/min eGFR BUN/Creatinine Ratio (10-20) Glucose (70-99(Fasting)) mg/dl POC Glucose 274 H 240 H (70-99) mg/dl Calcium (8.6-10.3) mg/dl PG Care Time/CCT Total # of Minutes Spent Total Time Spent with Patient: Total time spent is greater than 50% in coordination of care (as documented) at patient's floor/unit and/or counseling patient: Coding Level of Care Code 32590 SUB INP/OBS CARE 05/21MIN Diagnoses Odynophagia R13.10
--- NOTE | 2024-09-01 14:22 | Discharge Summary ---
Discharge Summary Date of Service September 01, 2024 Principal Dx & Hospital Course #1 = Principal Diagnosis (1) Odynophagia: (2) COPD (chronic obstructive pulmonary disease): (3) Lower extremity edema: (4) Opiate dependence: (5) Hyponatremia: (6) Hypokalemia: (7) Diabetes mellitus type 2, uncontrolled: (8) Current chronic use of systemic steroids: (9) Generalized anxiety disorder: (10) Multiple myeloma: (11) History of pulmonary embolism: (12) Tobacco abuse: Plan 64yo female with h/o chronic hypercapnic respiratory failure, severe asthma/COPD with PO steroid dependency, chronic HFpEF, T2DM, anxiety and chronic suboxone use presented to ER 08/08 for worsening shortness of breath and LE swelling. She does not feel her breathing is COPD, not currently on steroids, Normal BNP w/ slight increase Cr does require supplemental O2 to maintain sats with exertion but ok at rest #Odynophagia - -this is her biggest complaint today -given her chronic steroid use could easily have candidal esophagitis; erosive esophagitis from GERD also possible -add PPI -add carafate QID -will ask [facility] to consult for consideration of EGD #LE edema - -she is very frustrated by her edema -it is not responsive to high-dose diuretics -TSH is wnl -no significant CKD or proteinuria -no liver disease -last echo with preserved EF and normal RV function although she likely has pulm HTN as a result of her lung disease and that can contribute -venous study in 03/2024 did not show venous reflux disease of either leg -[id number] would benefit from compression - custom fit stockings would be best; will reach out to Caro Gruber to see if we can get her back to vascular clinic with Dr Meehan -labs today would suggest she is on the way to having mild intravascular volume depletion - place diuretics on hold; repeat labs am #Acute heart failure preserved ejection fraction - -at this point she is compensated -see "LE Edema" above -place diuretics on hold #COPD - severe - steroid dependent - -not in exacerbation -cont prednisone 15mg daily -cont inhaled medications of fluticasone, umeclidinium, and vilanterol -she feels congested in the chest - offered saline nebs but couldn't tolerate them per records -add mucinex 1200mg BID -consider chest PT -consider 3x's/week azithromycin -consider daliresp #Diabetes - -uncontrolled -add AM NPH 15 units to cover her prednisone -tighten novolog parameters -cont lantus #Depression and AYAN - -continue citalopram -continue alprazolam prn -consider buspar #DVT + PE history - -unprovoked - 2020 -continue Lovenox but adjust to 135mg daily as suggested by pharmacy #h/o ovarian cancer remotely - -s/p QUAN/BSO 32 years ago -recent PET-CT without any ca recurrence #h/o multiple myeloma - -s/p stem cell transplant 2014 #h/o expansile lesion of her right fourth rib - -PET/CT 2024 did not show radiotracer uptake await GI eval Admission HPI Per Admitting Provider 64-year-old female PMHx chronic hypercapnic respiratory failure, asthma, COPD, HFpEF, T2DM, anxiety and suboxone use presented to ER 08/08 for worsening shortness of breath and le swelling with weaping. She does not feel her breathing is COPD, not currently on steroids, Normal BNP w/ slight increase Cr does require supplemental O2 to maintain satswith exertion but ok at rest triple viral screen negative, CXR w/o PNA or but with some cephalization by my read. IN the ER 4 mg bumex and connie wraps appiled to legs, skin of legs are redened but not warm, pulses are palpable, Discharge Exam gen - sitting in chair, anxious, but NAD neck - no JVD mouth - MMM, no obvious thrush heart - RRR, s1 s2 lungs - mild end-exp wheezes b/l, mild fine rales b/l bases, no distress or increased work of breathing abd - soft NT ND BS+ ext - 1-2+ edema b/l shins and feet; pulses b/l feet 2+; dressings intact right dailey psych - a/o x 3, very anxious skin - venous pooling in feet leading to purple/very dark skin color; cap refill is about 2 seconds b/l feet Discharge Plan Discharge Items Patient Disposition: Home - Self-Care Reason For Visit: Edema, shortness of breath Discharge Diagnosis: 1. edema of legs 2. shortness of breath - mainly due to severe COPD 3. odynophagia (painful swallowing) - outpatient EGD needed marvin 4. uncontrolled diabetes 5. anxiety Activity: Resume your previous activity Non-emergency contact: Primary Care Provider Call non-emergency contact if: you have any medication questions, your symptoms worsen and you have a fever Follow-up/Referrals: Kristel Gruber PA-C [Physician Credit Front Office Developer] - 09/20/24 Radha Barboza PA-C [Primary Care Provider] - 09/12/24 11:20 am (Please arrive for appointment 15 mins. early) Favian Villalobos MD [Physician] - (we will get you set up with gastroenterology to have the upper endoscopy (EGD)) Diet: Carb Consistent or DM2 and Low Sodium (2gm) Fluids: 1800ml (7 cups) Addtl Attending Provider Instructions: Ms Monzon, You were hospitalized for swelling of your legs as well as shortness of breath. The swelling was treated with IV bumex (diuretic). Your swelling did improve during the stay. Shortness of breath was likely due to your COPD. Some of the breathing difficulty could have been fluid build-up in the lungs but less likely. You had mentioned 4-6 weeks of painful swallowing. This is called odynophagia. [facility] recommended upper endoscopy (EGD). This will be rescheduled for a future date. In the meantime please take the following medicines. These will help your esophagus heal if there is irritation, ulcers, etc. -pantoprazole 40mg once daily every morning -carafate 1gm three times daily with meals for 1 week only You may have some mild thrush in your mouth. Please take - -nystatin solution 5ml four times daily x 7 days; swish and spit We are going to refer you to our outpatient egg caser Bronwyn Olson to address any needs you may have outside the hospital. She will contact you. The GI office will contact you to reschedule the EGD. HOLD your spironolactone & bumetanide TODAY, then you can resume on 09/02/24. Finally, the correct dose of your lovenox is 135mg once daily. You will have to "waste" a tiny portion of the 150mg syringe. Only give yourself 0.9ml of the lovenox injection. Waste (discard) 0.1ml of the solution. This is your new dose. Return to [facility] if - * you have severe shortness of breath * you have chest pains * your oxygen levels on your finger with a pulse oximeter are consistently less than 90% * any other concerns It was our pleasure to care for you! -Dr Abreu Pending Studies at Discharge: No Stand-Alone Forms: My [facility], Smoking Cessation Medications and DC Order Prescriptions: New pantoprazole 40 mg Tablet,Delayed Release (Dr/Ec) 40 mg PO QAM Qty: 30 5RF Rx Instructions: for esophagus pain/stomach sucralfate [Carafate] 1 gram tablet 1 g PO AC 7 Days Qty: 21 0RF nystatin 100,000 unit/mL suspension 5 ml PO QID Qty: 150 0RF Rx Instructions: swish and spit. Please use for 7 days. Continued budesonide 0.25 mg/2 mL suspension for nebulization 0.25 mg inhalation BID Qty: 60 3RF albuterol sulfate 90 mcg/actuation HFA aerosol inhaler 2 puff INHALATION Q4H PRN (Reason: Shortness Of Breath Or Wheezing) Qty: 8.5 0RF Trelegy Ellipta 200-62.5-25 mcg blister with device 1 ea INHALATION QAM Qty: 60 0RF levalbuterol HCl 1.25 mg/3 mL solution for nebulization 1.25 mg INHALATION Q8H PRN (Reason: Shortness Of Breath Or Wheezing) ipratropium bromide 0.02 % solution 3 ml continuous nebulization QID PRN (Reason: shortness of breath) Qty: 75 0RF allopurinol 300 mg tablet 300 mg PO DAILY levalbuterol tartrate 45 mcg/actuation HFA aerosol inhaler 2 puff INHALATION Q6H PRN (Reason: WHEEZE) citalopram 20 mg tablet 20 mg PO HS fluticasone propionate [Flonase Allergy Relief] 50 mcg/actuation spray,suspension 1 spray intranasal BID Qty: 0 0RF insulin aspart U-100 [Novolog FlexPen U-100 Insulin] 100 unit/mL (3 mL) insulin pen See Rx Instructions .ROUTE .COMPLEX Rx Instructions: SLIDING SCALE WITH MEALS alprazolam 0.5 mg tablet 0.5 mg PO TID PRN (Reason: ANXIETY ) Hold Instructions: Resume on 04/06/24. Hold while you finish the course of fluconazole for the oral and esophageal thrush Rx Instructions: PT MAY TAKE AN EXTRA TAB FOR ACUTE PANIC ATTACKS- MAX 3 TABS DAILY 6AM, NOON, 6PM. ondansetron 4 mg tablet,disintegrating 4 mg PO Q8 PRN (Reason: NAUSEA/VOMITING) insulin glargine [Lantus Solostar U-100 Insulin] 100 unit/mL (3 mL) insulin pen 50 unit SUBCUT QAM colchicine 0.6 mg capsule 0.6 mg PO DAILY PRN (Reason: joint pain) Qty: 30 0RF buprenorphine-naloxone 4-1 mg film 1 film sublingual DAILY Mounjaro 5 mg/0.5 mL pen injector 5 mg subcut WK cholecalciferol (vitamin D3) 25 mcg (1,000 unit) Capsule 25 mcg PO QAM Qty: 30 0RF prednisone 5 mg tablet 5 mg PO DIRECTED Qty: 9 0RF Changed quetiapine 100 mg tablet 200 mg PO HS Qty: 0 0RF enoxaparin [Lovenox] 150 mg/mL Syringe 135 mg subcut Q24H Qty: 0 0RF Rx Instructions: you will have to "waste" a small amount of the lovenox to give yourself the correct dose of lovenox. Your dose based on weight is 135mg. Only give yourself 0.9ml of the lovenox syringe. You will be "wasting" 0.1ml each time to you take the lovenox. guaifenesin [Mucinex] 600 mg tablet extended release 12hr 1,200 mg PO Q12 PRN (Reason: Congestion) Qty: 0 0RF Held bumetanide 2 mg tablet 4 mg PO DAILY Qty: 120 2RF Hold Instructions: Resume on 09/02/24. Rx Instructions: Can increase to 4 mg BID as needed for weight gain. spironolactone 100 mg Tablet 100 mg PO BID17 Qty: 60 0RF Hold Instructions: Resume on 09/02/24. Discharge Orders: Discharge Order (Routine); Ordered 09/01/24 Ordered By: Toni Abreu Admission Data Admit Date/Time: 08/28/24 19:11 Attending Provider: Toni Abreu Admit Provider: Kaiden Calabrese Primary Care Provider: Radha Barboza Other Providers: Kaiden Calabrese; [facility] Consultations 08/28/24 18:59 ED Decision to Admit Stat 08/31/24 14:41 Consult Gastroenterology Routine Procedures Performed Operation Date: 09/02/24 16:30 <No data on this case meets the specified criteria> Diagnostic Imagining Performed 08/28/24 16:28 US arterial duplex LE BI Stat US venous doppler LE BI Stat Pending Results Patient Have Any Pending Studies at Discharge: No Discharge Instructions Given to Patient (Per Discharging Provider) Ms Monzon, Marquez were hospitalized for swelling of your legs as well as shortness of breath. The swelling was treated with IV bumex (diuretic). Your swelling did improve during the stay. Shortness of breath was likely due to your COPD. Some of the breathing difficulty could have been fluid build-up in the lungs but less likely. You had mentioned 4-6 weeks of painful swallowing. This is called odynophagia. [facility] recommended upper endoscopy (EGD). This will be rescheduled for a future date. In the meantime please take the following medicines. These will help your esophagus heal if there is irritation, ulcers, etc. -pantoprazole 40mg once daily every morning -carafate 1gm three times daily with meals for 1 week only You may have some mild thrush in your mouth. Please take - -nystatin solution 5ml four times daily x 7 days; swish and spit We are going to refer you to our outpatient egg caser Bronwyn Olson to address any needs you may have outside the hospital. She will contact you. The GI office will contact you to reschedule the EGD. HOLD your spironolactone & bumetanide TODAY, then you can resume on 09/02/24. Finally, the correct dose of your lovenox is 135mg once daily. You will have to "waste" a tiny portion of the 150mg syringe. Only give yourself 0.9ml of the lovenox injection. Waste (discard) 0.1ml of the solution. This is your new dose. Return to [facility] if - * you have severe shortness of breath * you have chest pains * your oxygen levels on your finger with a pulse oximeter are consistently less than 90% * any other concerns It was our pleasure to care for you! -Dr Abreu Coding Diagnoses Odynophagia R13.10 COPD (chronic obstructive pulmonary disease) J44.9 COPD type: unspecified COPD Lower extremity edema R60.0 Opioid dependence in remission F11.21 Substance use status: in remission Hyponatremia E87.1 Hypokalemia E87.6 Diabetes mellitus type 2, uncontrolled Current chronic use of systemic steroids Z79.52 Generalized anxiety disorder F41.1 Multiple myeloma C90.00 Multiple myeloma remission status: unspecified History of pulmonary embolism Z86.711 Tobacco abuse Z72.0
== END 2024-09-01 15:05 | disposition home or self-care (01) | DRG 292 ==
LOC: ED 14:42 → 2S 19:11 → SUATTDRO 19:11 → 2S 20:21 → 3E 08-30 18:05

== ENCOUNTER 2024-09-30 15:23 | Observation (INO) ==
--- NOTE | 2024-09-30 15:38 | Emergency Department Note ---
Impression & Plan Cellulitis, Leukocytosis, PAD (peripheral artery disease) ED Provider Note NAME: LIANNE SAMUEL AGE: 64 SEX: F : 1960 ARRIVES VIA: Walk-In INFORMANT: Patient ED PROVIDER(S): Ismael Armstrong MD CHIEF COMPLAINT: Feet pain PLAN: Disposition: Admit MEDICAL DECISION MAKING: The patient is a pleasant 64-year-old woman with past medical history of COPD on prn home oxygen, diastolic heart failure, history of opioid dependence, history of PE on Lovenox, history of multiple myeloma, anxiety who presents to the emergency department via walk-in for evaluation of worsening bilateral feet pain and discoloration where she reports they frequently look blue. The patient reports she had seen her cardiology office last week for management of her fluid retention and lower extremity edema. Ports she contacted their office today for a follow-up visit due to her worsening pain and discoloration of her feet and was referred to emergency department. Patient reports she has been compliant with her Lovenox. She reports her leg swelling has been improved since her recent admission to this facility from 08/28-09/01 for management of her volume overload. Patient reports her respiratory status has been stable. She denies any fevers. She denies nausea, vomiting, diarrhea or symptoms. On evaluation the patient is no acute distress, afebrile with respiratory in the 20s and heart rate in the 100s and vital signs otherwise stable. She appears euvolemic. There is residual scant lower extremity edema which is improved from prior admission. There is a superficial ulceration/wound of the anterior aspect of the distal left lower leg. There is duskiness of bilateral feet with 2+ capillary refill. Pedal pulses are present bilaterally with bilateral PT, AT, and DP pulses detectable on Doppler and are biphasic/triphasic. EKG without overt acute ischemia. CXR negative for acute cardiopulmonary process per my personal preliminary review/interpretation. WBC 14.2 K with neutrophilia but no left shift, nonspecific. H/H and platelets within normal limits. Chemistry without metabolic acidosis. LFTs unremarkable. High styptic troponin 20.4, nonspecific. BNP is pending. Procalcitonin pending. Blood cultures were obtained and empiric treatment for cellulitis initiated with IV Zosyn and daptomycin. Given the patient's comorbidities with concern for bilateral lower leg/foot cellulitis patient agrees with plan for admission for further management. Case was discussed with AUSTYN Chavez PAC, with AUSTYN Lu hospitalist who will evaluate the patient for admission. Further management per admitting team. Triage Nursing notes reviewed and agree them. Prior/external medical records reviewed Vital Signs: reviewed Differential diagnosis: Cellulitis, abscess, MRSA infection, DVT, necrotizing fasciitis, dermatitis, drug eruption, allergic reaction, as well as other pathologies. ER treatment provided: See below. Diagnostics interpreted by me: ECG: Sinus tachycardia, PACs, 106 bpm, no overt ST elevation or depression, QTc 451, QRS 70. Cardiac Monitoring: An order for continuous cardiac monitoring was placed and demonstrated Sinus tachycardia, PACs, 106 bpm. Laboratory studies: See below Imaging studies: See below Consultation(s): AUSTYN Chavez PAC, with AUSTYN Lu hospitalist HPI: Per MDM. ROS: See above HPI for pertinent positives & negatives. A total of 10 systems reviewed and were otherwise negative. VITALS:See Below PHYSICAL EXAMINATION: GENERAL: Awake, alert, in no distress HENT: Normocephalic, atraumatic. Oropharynx unremarkable. EYES: Normal conjunctiva. Sclera non-icteric. NECK: Supple. No nuchal rigidity. FROM. No JVD. RESPIRATORY: Intermittent wheeze otherwise normal respiratory effort. Clear to auscultation CARDIAC: Regular rate, normal rhythm. Extremities warm and well perfused. Pulses equal. ABDOMEN: Soft, non-distended. No tenderness to palpation. No rebound or guarding. No masses. MUSCULOSKELETAL: Chest examination reveals no tenderness. The back is symmetrical on inspection without obvious abnormality. There is no CVA tenderness to palpation. No joint edema. LOWER EXTREMITIES: Calves are equal size bilaterally and non-tender. Residual scant lower extremity edema which is improved from prior admission. There is a superficial ulceration/wound of the anterior aspect of the distal left lower leg. There is duskiness of bilateral feet with 2+ capillary refill. Pedal pulses are present bilaterally with bilateral PT AT and DP pulses detectable on Doppler and are biphasic/triphasic. NEURO: Normal sensorium. No sensory or motor deficits noted. SKIN: No rash or jaundice noted. Ismael Armstrong MD Past Med/Surg History Problem List (Updated 10/01/24 @ 02:00 by Ismael Armstrong MD) PAD (peripheral artery disease) (Acute) Cellulitis (Acute) Severe persistent asthma Coronary artery calcification seen on CAT scan Current chronic use of systemic steroids Diabetes mellitus type 2, uncontrolled Hyponatremia Odynophagia Mild renal insufficiency (Acute) CHF (congestive heart failure) (Acute) HARRIS (dyspnea on exertion) (Acute) Leukocytosis (Acute) Asthma-COPD overlap syndrome Acute exacerbation of chronic obstructive airways disease (Acute) Vitamin D deficiency Hyperglycemia due to diabetes mellitus (Acute) Chronic hypercapnic respiratory failure Bone marrow transplant status Bronchiectasis Allergic asthma Lower extremity edema (Acute) Generalized anxiety disorder DM II (diabetes mellitus, type II), controlled COPD (chronic obstructive pulmonary disease) Dyspnea D-dimer, elevated (Acute) Palpitations (Acute) Chest pain (Acute) Bilateral knee pain CHF exacerbation (Acute) COPD exacerbation (Acute) Chest pain Right knee pain Acute exacerbation of chronic obstructive pulmonary disease (Acute) Leukocytosis (Acute) Acute hypokalemia (Acute) Diabetes Tobacco abuse counseling Moderate persistent asthma Constipation Acute bronchitis Pulmonary vascular congestion Medical History Hypokalemia B12 deficiency Pneumonia COPD exacerbation Anxiety Thrush of mouth and esophagus Heart failure with preserved ejection fraction Elevated brain natriuretic peptide (BNP) level Acute dyspnea Acute hypoxic respiratory failure Elevated troponin COVID-19 Normocytic hypochromic anemia Failure of outpatient treatment Bilateral edema of lower extremity Gout Tobacco use disorder Hematochezia History of pulmonary embolism Michela esophagitis Acute and chronic respiratory failure with hypoxia Chronic anticoagulation Obesity hypoventilation syndrome Multiple myeloma History of pulmonary embolism Acute exacerbation of chronic obstructive pulmonary disease Acute heart failure with preserved ejection fraction (HFpEF) Acute exacerbation of chronic obstructive pulmonary disease Tobacco abuse Opiate dependence Asthma Surgical History No pertinent past surgical history Family History Sister Asthma Social History Smoking Status: Current every day smoker Tobacco Type: Cigarettes Age Started Using Tobacco: 15; Cigarettes Per Day: 4; Second Hand Exposure: No; Do You Dip or Chew Tobacco: No; Hx Alcohol Use: No Hx Substance Use: No Preferred Language: Sami Communication Ability: Effective Vp Emerging Media Required: No Beliefs That Will Affect Care: None Current Living Situation: Family Current Living Situation Comment: lives with sister Feels Safe at Home: Yes Assistive Devices: CPAP and Glasses Allergies Allergies Allergy/AdvReac Type Severity Reaction Status Date / Time codeine Allergy Severe Anaphylaxis Verified 09/30/24 16:59 Iodinated Contrast Media Allergy Severe Anaphylaxis Verified 09/30/24 16:59 shellfish derived Allergy Severe Anaphylaxis Verified 09/30/24 16:59 tramadol Allergy Intermediate ITCHINESS Verified 09/30/24 16:59 pollen extracts Allergy Mild Congested Verified 09/30/24 16:59 iohexol Allergy Unknown CAN'T Verified 09/30/24 16:59 REMEMBER diphenhydramine AdvReac Severe Anxiety Verified 09/30/24 16:59 [From Benadryl] promethazine AdvReac Intermediate Anxiety Verified 09/30/24 16:59 Home Meds Home Medications Medication Instructions Recorded Confirmed levalbuterol HCl 1.25 mg/3 mL 1.25 mg inhalation Q8H PRN 01/16/23 09/30/24 solution for nebulization Shortness Of Breath Or Wheezing insulin aspart U-100 100 unit/mL See Rx Instructions .Route .COMPLEX 11/07/23 09/30/24 (3 mL) subcutaneous pen (Novolog FlexPen U-100 Insulin aspart) alprazolam 0.5 mg tablet 0.5 mg PO TID PRN ANXIETY 02/28/24 09/30/24 insulin glargine 100 unit/mL (3 50 unit subcut QAM 02/28/24 09/30/24 mL) subcutaneous pen (Lantus Solostar U-100 Insulin) ondansetron 4 mg disintegrating 4 mg PO Q8 PRN NAUSEA/VOMITING 02/28/24 09/30/24 tablet allopurinol 300 mg tablet 300 mg PO DAILY 03/23/24 09/30/24 levalbuterol tartrate 45 2 puff inhalation Q6H PRN WHEEZE 03/23/24 09/30/24 mcg/actuation aerosol inhaler citalopram 20 mg tablet 20 mg PO HS 04/21/24 09/30/24 buprenorphine 4 mg-naloxone 1 mg 1 film sublingual DAILY 08/08/24 09/30/24 sublingual film tirzepatide 5 mg/0.5 mL 5 mg subcut WK 08/08/24 09/30/24 subcutaneous pen injector (Lori) prednisone 5 mg tablet 15 mg PO DAILY 09/30/24 09/30/24 Previous Rx's Medication Instructions Recorded ipratropium bromide 0.02 % 3 ml continuous nebulization QID 10/17/23 solution for inhalation PRN shortness of breath #75 mL colchicine 0.6 mg capsule 0.6 mg PO DAILY PRN joint pain #30 03/01/24 caps budesonide 0.25 mg/2 mL suspension 0.25 mg (2 mL) inhalation BID #60 05/24/24 for nebulization mL spironolactone 100 mg tablet 100 mg PO BID17 #60 tabs 06/09/24 albuterol sulfate 90 mcg/actuation 2 puff inhalation Q4H PRN 07/12/24 aerosol inhaler Shortness Of Breath Or Wheezing #8.5 grams enoxaparin 150 mg/mL subcutaneous 135 mg (0.9 mL) subcut Q24H #0 mL 09/01/24 syringe (Lovenox) guaifenesin 600 mg tablet, 1,200 mg (2 x 600 mg) PO Q12 PRN 09/01/24 extended release 12 hr (Mucinex) Congestion #0 tabs pantoprazole 40 mg tablet,delayed 40 mg PO QAM #30 tabs 09/01/24 release quetiapine 100 mg tablet 200 mg (2 x 100 mg) PO HS #0 tabs 09/01/24 fluticasone fur. 200 mcg-umeclid 1 ea inhalation QAM #60 ea 09/15/24 62.5 mcg-vilant 25 mcg inhalat.powder (Trelegy Ellipta) bumetanide 2 mg tablet 4 mg (2 x 2 mg) PO DAILY #360 tabs 09/22/24 Results & Data (ED) Vital Signs Vital Signs - 24 hr 09/30/24 15:24 09/30/24 15:47 09/30/24 16:07 Temperature 36.1 C L Temperature Source Temporal Artery Scan Pulse Rate 106 H 106 H Pulse Rate [Apical] Respiratory Rate 25 H Respiratory Effort / Characteristics Non-Labored Spontaneous Respiratory Depth Normal Blood Pressure 125/85 Blood Pressure [Right Arm] Blood Pressure Mean 98 Blood Pressure Mean [Right Arm] Pulse Oximetry 96 96 Oxygen Delivery Method Room Air Room Air Oxygen Flow Rate 0 Sepsis Recent Fever Within 48 Hours No Sepsis New/Unexplained Change in Mental Status N/A Sepsis Action Taken by Nursing No Action Required 09/30/24 17:30 Temperature Temperature Source Pulse Rate Pulse Rate [Apical] 93 H Respiratory Rate 18 Respiratory Effort / Characteristics Respiratory Depth Blood Pressure Blood Pressure [Right Arm] 140/94 Blood Pressure Mean Blood Pressure Mean [Right Arm] 109 Pulse Oximetry 96 Oxygen Delivery Method Room Air Oxygen Flow Rate Sepsis Recent Fever Within 48 Hours Sepsis New/Unexplained Change in Mental Status Sepsis Action Taken by Nursing Laboratory Data Attestation: I reviewed the patient's lab results. 09/30/24 15:48 09/30/24 15:48 Lab Results 09/30/24 09/30/24 09/30/24 Range/Units 15:45 15:48 17:06 WBC 14.28 H (4.8-10.8) K/ul RBC 5.62 H (4.20-5.40) M/uL Hgb 14.7 (12.0-16.0) g/dl Hct 45.1 (37.0-47.0) % MCV 80.2 (80.0-100.0) fL MCH 26.2 (25.0-34.0) pg MCHC 32.6 (32.0-36.0) g/dL RDW Std Deviation 49.9 H (36.4-46.3) fL RDW Coeff of Malick 18.6 H (11.5-14.5) % Plt Count 304 (130-400) K/uL MPV 10.0 (9.4-12.4) fL Immature Gran % (Auto) 1.1 % Neut % (Auto) 90.8 % Lymph % (Auto) 6.0 % Duval % (Auto) 2.0 % Eos % (Auto) 0.0 % Baso % (Auto) 0.1 % Neut # (Auto) 12.97 H (1.40-6.50) K/uL Lymph # (Auto) 0.85 L (1.20-3.40) K/uL Duval # (Auto) 0.28 (0.11-0.59) K/uL Eos # (Auto) 0.00 (0.00-0.50) K/uL Baso # (Auto) 0.02 (0.00-0.20) K/uL Immature Gran # (Auto) 0.16 (0.01-0.20) K/uL PT 10.8 (9.0-12.0) Seconds INR 1.0 (0.9-1.1) APTT 23 (21-31) Seconds PTT Ratio 0.9 Sodium 130 L (136-145) mmol/L Potassium 4.2 (3.5-5.1) mmol/L Chloride 90 L (98-107) mmol/L Carbon Dioxide 29 (21-32) mmol/L Anion Gap 11 (3-11) BUN 31 H (6-23) mg/dl Creatinine 1.05 (0.6-1.2) mg/dl Est Cr Clr Drug Dosing Not Reportable eGFR 59.70 BUN/Creatinine Ratio 29.5 H (10-20) Glucose 231 H (70-99(Fasting)) mg/dl Lactate 1.6 (0.4-2.0) mmol/L Calcium 9.1 (8.6-10.3) mg/dl Total Bilirubin 0.3 (0.2-1.0) mg/dl AST 16 (13-39) U/L ALT 24 (7-52) U/L Alkaline Phosphatase 123 H (34-104) U/L Troponin I High Sens 20.4 H (0-14) pg/ml C-Reactive Protein 0.51 H (0-0.5) mg/dl B-Natriuretic Peptide 116 H (0-100) pg/ml Total Protein 7.2 (6.0-8.3) gm/dl Albumin 4.4 (3.4-5.0) gm/dl Globulin 2.8 (2.5-4.0) gm/dl Albumin/Globulin Ratio 1.6 (0.9-2) Procalcitonin 0.07 (0-0.5) ng/ml 09/30/24 Range/Units 17:07 WBC (4.8-10.8) K/ul RBC (4.20-5.40) M/uL Hgb (12.0-16.0) g/dl Hct (37.0-47.0) % MCV (80.0-100.0) fL MCH (25.0-34.0) pg MCHC (32.0-36.0) g/dL RDW Std Deviation (36.4-46.3) fL RDW Coeff of Malick (11.5-14.5) % Plt Count (130-400) K/uL MPV (9.4-12.4) fL Immature Gran % (Auto) % Neut % (Auto) % Lymph % (Auto) % Duval % (Auto) % Eos % (Auto) % Baso % (Auto) % Neut # (Auto) (1.40-6.50) K/uL Lymph # (Auto) (1.20-3.40) K/uL Duval # (Auto) (0.11-0.59) K/uL Eos # (Auto) (0.00-0.50) K/uL Baso # (Auto) (0.00-0.20) K/uL Immature Gran # (Auto) (0.01-0.20) K/uL PT (9.0-12.0) Seconds INR (0.9-1.1) APTT (21-31) Seconds PTT Ratio Sodium (136-145) mmol/L Potassium (3.5-5.1) mmol/L Chloride (98-107) mmol/L Carbon Dioxide (21-32) mmol/L Anion Gap (3-11) BUN (6-23) mg/dl Creatinine (0.6-1.2) mg/dl Est Cr Clr Drug Dosing eGFR BUN/Creatinine Ratio (10-20) Glucose (70-99(Fasting)) mg/dl Lactate (0.4-2.0) mmol/L Calcium (8.6-10.3) mg/dl Total Bilirubin (0.2-1.0) mg/dl AST (13-39) U/L ALT (7-52) U/L Alkaline Phosphatase (34-104) U/L Troponin I High Sens 18.9 H (0-14) pg/ml C-Reactive Protein (0-0.5) mg/dl B-Natriuretic Peptide (0-100) pg/ml Total Protein (6.0-8.3) gm/dl Albumin (3.4-5.0) gm/dl Globulin (2.5-4.0) gm/dl Albumin/Globulin Ratio (0.9-2) Procalcitonin (0-0.5) ng/ml Administered Medications Albuterol (Albut/Ipratrop 3mg/0.5mg Neb 3 Ml Vial) 3 ml NEB Q6R [facility]; Protocol Stop: 10/30/24 20:06 Last Admin: 10/01/24 00:15 Dose: 3 ml Documented By: Admin: 09/30/24 22:03 Dose: Not Given Documented By: LYRIC Budesonide (Budesonide 0.25 Mg/2 Ml Vial (Pulmicort)) 0.25 mg INH BID [facility] Stop: 10/30/24 20:59 Last Admin: 09/30/24 22:04 Dose: Not Given Documented By: LYRIC Citalopram Hydrobromide (Citalopram 20 Mg Tab) 20 mg PO HS [facility] Stop: 10/30/24 20:59 Last Admin: 09/30/24 21:20 Dose: 20 mg Documented By: VIRGINIA Enoxaparin Sodium (Enoxaparin 150 Mg/Ml Syr) 135 mg SQ Q24H [facility] Stop: 10/30/24 20:59 Last Admin: 09/30/24 21:27 Dose: 135 mg Documented By: VIRGINIA Fluticasone Propionate (Fluticasone Propionate Na Spr 16 Gm Btl) 1 sprays NA BID [facility] Stop: 10/30/24 20:59 Last Admin: 09/30/24 21:20 Dose: 1 sprays Documented By: VIRGINIA Guaifenesin (Guaifenesin 600 Mg Tabcr) 1,200 mg PO Q12 [facility] Stop: 10/30/24 20:59 Last Admin: 09/30/24 21:20 Dose: 1,200 mg Documented By: VIRGINIA Insulin Aspart (Insulin Aspart Per Unit Charge) 0 units SC ACHS [facility] Stop: 10/30/24 20:59 Last Admin: 09/30/24 21:30 Dose: Not Given Documented By: VIRGINIA Co-signed By: NOAM Insulin Glargine (Lantus Per Unit Charge) 20 units SQ BID [facility] Stop: 10/30/24 20:59 Last Admin: 09/30/24 21:32 Dose: Not Given Documented By: VIRGINIA Quetiapine Fumarate (Quetiapine Fumarate 200 Mg Tab) 200 mg PO HS [facility] Stop: 10/30/24 20:59 Last Admin: 09/30/24 21:20 Dose: 200 mg Documented By: VIRGINIA Discontinued Medications Alprazolam (Alprazolam 0.5 Mg Tablet) 0.5 mg PO NOW STA Stop: 09/30/24 18:38 Last Admin: 09/30/24 18:46 Dose: 0.5 mg Documented By: NRB Piperacillin Sod/Tazobactam Sod (Zosyn) 4.5 gm in 100 mls @ 200 mls/hr IV NOW ONE; Protocol Stop: 09/30/24 16:53 Last Infusion: 09/30/24 17:36 Dose: Infused Documented By: Admin: 09/30/24 16:57 Dose: 200 mls/hr Documented By: NRB Acetaminophen (Ofirmev) 1,000 mg in 100 mls @ 400 mls/hr IV NOW STA Stop: 09/30/24 16:46 Last Infusion: 09/30/24 16:57 Dose: Infused Documented By: NRHeather Admin: 09/30/24 16:37 Dose: 400 mls/hr Documented By: SMOOTH Daptomycin 850 mg/ Syringe 17 mls @ 8.5 mls/min IV NOW ONE; Protocol Stop: 09/30/24 16:44 Last Admin: 09/30/24 17:03 Dose: 8.5 mls/min Documented By: SMOOTH Methylprednisolone (Methylprednisolone 125 Mg/2 Ml Vial) 40 mg IV NOW STA Stop: 09/30/24 17:48 Last Admin: 09/30/24 18:47 Dose: 40 mg Documented By: NRB Imaging Data Radiologist's Impression: Chest X-Ray 09/30/24 15:28 EXAM: Portable AP chest radiograph TECHNIQUE: AP portable radiograph of the chest was obtained. INDICATION: Shortness of breath Comparison: Chest radiograph August 28, 2024 FINDINGS: LINES and TUBES: None CARDIOVASCULAR: Cardiac silhouette is stably and mildly enlarged in size. LUNGS/PLEURA: No focal consolidation identified. Mild pulmonary vascular congestion and chronic interstitial changes of the lungs are similar to the previous radiograph. No significant pleural fluid. No discernible pneumothorax. OSSEOUS/OTHER: No displaced acute osseous process identified. Similar appearance of the callus seen along the anterolateral aspect of the right fourth rib. IMPRESSION: Similar mild congestive changes of the cardiovascular system compared to the previous radiograph. Electronically signed by Aneudy Barclay 09-30-2024 4:53 PM Discharge Plan Visit Data Chief Complaint: Shortness of Breath/Dyspnea Stated Complaint: SOB, FEET BLACK/BLUE, PALPIATIONS, COPD ED Provider: Ismael Armstrong Discharge Problem: Cellulitis, Leukocytosis, PAD (peripheral artery disease) Patient Disposition: Admitted As Inpatient Condition: Fair Discharge Instructions Interventions: ED Discharge Assessment Last Done: 09/30/24 19:54 Discharge Problem: Cellulitis Qualifiers: Site of cellulitis: extremity Site of cellulitis of extremity: lower extremity Leukocytosis Qualifiers: Leukocytosis type: unspecified Qualified Code(s): D72.829 - Elevated white blood cell count, unspecified
[2024-09-30 16:09] LABS: Hematocrit (blood only) 45.1 % (37.0-47.0); Hemoglobin 14.7 g/dl (12.0-16.0); Mean Corpuscular Hemoglobin 26.2 pg (25.0-34.0); Mean Corpuscular Hgb Conc 32.6 g/dL (32.0-36.0); Mean Corpuscular Volume 80.2 fL (80.0-100.0); Platelet Count 304 K/uL (130-400); RDW Coefficient of Variation 18.6 % (11.5-14.5); RDW Standard Deviation 49.9 fL (36.4-46.3); Red Blood Count 5.62 M/uL (4.20-5.40); White Blood Count 14.28 K/ul (4.8-10.8)
[2024-09-30 16:25] LABS: Alanine Aminotransferase 24 U/L (7-52); Albumin Globulin Ratio 1.6 (0.9-2); Albumin Level 4.4 gm/dl (3.4-5.0); Alkaline Phosphatase 123 U/L (34-104); Anion Gap 11 (3-11); Aspartate Aminotransferase 16 U/L (13-39); BUN Creatinine Ratio 29.5 (10-20); Bilirubin,Total 0.3 mg/dl (0.2-1.0); Blood Urea Nitrogen 31 mg/dl (6-23); Calcium 9.1 mg/dl (8.6-10.3); Carbon Dioxide 29 mmol/L (21-32); Chloride 90 mmol/L (98-107); Globulin 2.8 gm/dl (2.5-4.0); Glucose 231 mg/dl (70-99(Fasting)); Potassium 4.2 mmol/L (3.5-5.1); Sodium 130 mmol/L (136-145); Total Protein 7.2 gm/dl (6.0-8.3)
[2024-09-30 16:30] LABS: Basophils # (auto) 0.02 K/uL (0.00-0.20); Basophils % (auto) 0.1 %; Immature Granulocytes # (auto) 0.16 K/uL (0.01-0.20); Immature Granulocytes % (auto) 1.1 %; Lymphocytes # (auto) 0.85 K/uL (1.20-3.40); Monocytes # (auto) 0.28 K/uL (0.11-0.59); Neutrophils # (auto) 12.97 K/uL (1.40-6.50); Neutrophils % (auto) 90.8 %; Troponin I High Sensitivity 20.4 pg/ml (0-14)
[2024-09-30] MEDS: ACETAMINOPHEN 1,000 MG/100 ML VIAL IV STA (16:37)
[2024-09-30 16:38] LABS: Partial Thromboplastin Ratio 0.9; Partial Thromboplastin Time 23 Seconds (21-31); Prothrombin Time 10.8 Seconds (9.0-12.0)
--- NOTE | 2024-09-30 16:52 | History & Physical Report ---
Date of Service September 30, 2024 Assessment & Plan (1) Cellulitis: (2) COPD exacerbation: Plan Janae is a 64-year-old female with past medical history of chronic hypoxic/hypercapnic respiratory failure, COPD on PRN home O2, allergic asthma, T2DM, HFpEF, AYAN, history of opioid dependence, history of PE on Lovenox, and history of multiple myeloma who is well known to the hospital medicine service. She presented with bilateral lower extremity pain and likely has left lower extremity cellulitis. Also with likely COPD exacerbation. #LLE Cellulitis - with increased warmth, erythema, and superficial ulceration anteriorly Pro-Chad negative at 0.07, BNP mildly elevated at 116, CRP pending She was given Zosyn and daptomycin in ED. Continue with ceftriaxone 2 g Q24h Lower extremity venous Dopplers ordered bilaterally to evaluate for DVT given noncompliance with Lovenox, pending Pain regimen: Tylenol as needed, Suboxone daily PT/OT consulted as patient reports she cannot bear weight Wound care nurse consulted Follow blood cultures obtained in the ED #COPD exacerbation - with increased wheezing. CXR with similar mild congestive changes compared to previous CXR Start azithromycin 500 mg daily x 3 days for exacerbation. Continue ceftriaxone as above Continue home inhalers Sputum cultures ordered Solu-Medrol 40 mg IV now. Continue on Prednisone 40 mg daily starting tomorrow 10/01. Chronically takes prednisone 15 mg DuoNeb QID and Q2h PRN, incentive spirometry, Mucinex Supplemental O2 PRN for O2 goal >90% #T2DM A1c 8.7% in July 2024 Hold home regimen while inpatient SSI with target BSG range [id number]/dL, CF 18, CR 6, Lantus 20 u BID Pharmacy glycemic management consult placed given increased steroid use #Elevated troponin Troponin elevated at 20.4 then down trended to 18.9. EKG without ischemic changes. No chest pain. Suspect demand ischemia in setting of acute infection and COPD exacerbation #HFpEF Does not appear to be in acute exacerbation on admission; euvolemic on exam. BNP mildly elevated on admission at 116 Recently was told to hold her spironolactone Continue Bumex 4 mg daily Daily weights, I+Os #Anxiety - Continue Citalopram, quetiapine, Xanax #History of opioid dependence - continue Suboxone #ELEUTERIO/obesity hypoventilation syndrome - continue CPAP HS Dispo: Med surg observation VTE PPx: Lovenox Reviewed outpatient records History of Present Illness Chief Complaint: Feet pain Primary Care Provider: Radha Cardoso is a 64-year-old female with past medical history of chronic hypoxic/hypercapnic respiratory failure, COPD on PRN home O2, allergic asthma, T2DM, HFpEF, AYAN, history of opioid dependence, history of PE on Lovenox, and history of multiple myeloma who is well known to the hospital medicine service. 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 At the time my exam, the patient was lying in bed in no acute distress. She states she has had progressive pain for >1 week but could not specify beyond that. She reports that her lower extremities are "painful be a belief. I can't describe it more than that." She has a superficial nonhealing ulcer on her anterior left lower extremity that she noticed for the first time yesterday, 09/29. She reports she cannot bear weight secondary to pain. She states her lower extremities are equally painful bilaterally, but notes the pain is more around her dailey/calf on the right and around her ankle on the left side. Additionally, she reports "feeling a COPD flareup coming on." She notes this began yesterday, 09/29. She reports feeling wheezy, but denies increased cough or sputum production or dyspnea. Vitals on admission significant for mild tachycardia with HR in 90s; vitals otherwise stable. Labs on admission are significant for mild leukocytosis with WBC 14.28 with neutrophil predominance, mild hyponatremia with Na 130, BNP mildly elevated at 116, procalcitonin negative at 0.07. CXR on admission reveals similar mild congestive changes compared to previous CXR. We discussed code status, patient wishes to be a full code. Allergies Allergy/AdvReac Type Severity Reaction Status Date / Time codeine Allergy Severe Anaphylaxis Verified 09/30/24 16:59 Iodinated Contrast Media Allergy Severe Anaphylaxis Verified 09/30/24 16:59 shellfish derived Allergy Severe Anaphylaxis Verified 09/30/24 16:59 tramadol Allergy Intermediate ITCHINESS Verified 09/30/24 16:59 pollen extracts Allergy Mild Congested Verified 09/30/24 16:59 iohexol Allergy Unknown CAN'T Verified 09/30/24 16:59 REMEMBER diphenhydramine AdvReac Severe Anxiety Verified 09/30/24 16:59 [From Benadryl] promethazine AdvReac Intermediate Anxiety Verified 09/30/24 16:59 Home Medications Medication Instructions Recorded Confirmed Type levalbuterol HCl 1.25 mg/3 mL 1.25 mg inhalation Q8H PRN 01/16/23 09/30/24 History solution for nebulization Shortness Of Breath Or Wheezing ipratropium bromide 0.02 % 3 ml continuous nebulization QID 10/17/23 09/30/24 Rx solution for inhalation PRN shortness of breath #75 mL insulin aspart U-100 100 unit/mL See Rx Instructions .Route .COMPLEX 11/07/23 09/30/24 History (3 mL) subcutaneous pen (Novolog FlexPen U-100 Insulin aspart) alprazolam 0.5 mg tablet 0.5 mg PO TID PRN ANXIETY 02/28/24 09/30/24 History insulin glargine 100 unit/mL (3 50 unit subcut QAM 02/28/24 09/30/24 History mL) subcutaneous pen (Lantus Solostar U-100 Insulin) ondansetron 4 mg disintegrating 4 mg PO Q8 PRN NAUSEA/VOMITING 02/28/24 09/30/24 History tablet colchicine 0.6 mg capsule 0.6 mg PO DAILY PRN joint pain #30 03/01/24 09/30/24 Rx caps allopurinol 300 mg tablet 300 mg PO DAILY 03/23/24 09/30/24 History levalbuterol tartrate 45 2 puff inhalation Q6H PRN WHEEZE 03/23/24 09/30/24 History mcg/actuation aerosol inhaler citalopram 20 mg tablet 20 mg PO HS 04/21/24 09/30/24 History budesonide 0.25 mg/2 mL suspension 0.25 mg (2 mL) inhalation BID #60 05/24/24 09/30/24 Rx for nebulization mL spironolactone 100 mg tablet 100 mg PO BID17 #60 tabs 06/09/24 09/30/24 Rx albuterol sulfate 90 mcg/actuation 2 puff inhalation Q4H PRN 07/12/24 09/30/24 Rx aerosol inhaler Shortness Of Breath Or Wheezing #8.5 grams buprenorphine 4 mg-naloxone 1 mg 1 film sublingual DAILY 08/08/24 09/30/24 History sublingual film tirzepatide 5 mg/0.5 mL 5 mg subcut WK 08/08/24 09/30/24 History subcutaneous pen injector (Mounjaro) enoxaparin 150 mg/mL subcutaneous 135 mg (0.9 mL) subcut Q24H #0 mL 09/01/24 09/30/24 Rx syringe (Lovenox) guaifenesin 600 mg tablet, 1,200 mg (2 x 600 mg) PO Q12 PRN 09/01/24 09/30/24 Rx extended release 12 hr (Mucinex) Congestion #0 tabs pantoprazole 40 mg tablet,delayed 40 mg PO QAM #30 tabs 09/01/24 09/30/24 Rx release quetiapine 100 mg tablet 200 mg (2 x 100 mg) PO HS #0 tabs 09/01/24 09/30/24 Rx fluticasone fur. 200 mcg-umeclid 1 ea inhalation QAM #60 ea 09/15/24 09/30/24 Rx 62.5 mcg-vilant 25 mcg inhalat.powder (Trelegy Ellipta) bumetanide 2 mg tablet 4 mg (2 x 2 mg) PO DAILY #360 tabs 09/22/24 09/30/24 Rx prednisone 5 mg tablet 15 mg PO DAILY 09/30/24 09/30/24 History Past Med/Surg History Problem List (Updated 09/30/24 @ 18:30 by Mine Ponce PA-C) Cellulitis Severe persistent asthma Coronary artery calcification seen on CAT scan Current chronic use of systemic steroids Diabetes mellitus type 2, uncontrolled Hyponatremia Odynophagia Mild renal insufficiency (Acute) CHF (congestive heart failure) (Acute) HARRIS (dyspnea on exertion) (Acute) Leukocytosis (Acute) Asthma-COPD overlap syndrome Acute exacerbation of chronic obstructive airways disease (Acute) Vitamin D deficiency Hyperglycemia due to diabetes mellitus (Acute) Chronic hypercapnic respiratory failure Bone marrow transplant status Bronchiectasis Allergic asthma Lower extremity edema (Acute) Generalized anxiety disorder DM II (diabetes mellitus, type II), controlled COPD (chronic obstructive pulmonary disease) Dyspnea D-dimer, elevated (Acute) Palpitations (Acute) Chest pain (Acute) Bilateral knee pain CHF exacerbation (Acute) COPD exacerbation (Acute) Chest pain Right knee pain Acute exacerbation of chronic obstructive pulmonary disease (Acute) Leukocytosis (Acute) Acute hypokalemia (Acute) Diabetes Tobacco abuse counseling Moderate persistent asthma Constipation Acute bronchitis Pulmonary vascular congestion Medical History Hypokalemia B12 deficiency Pneumonia COPD exacerbation Anxiety Thrush of mouth and esophagus Heart failure with preserved ejection fraction Elevated brain natriuretic peptide (BNP) level Acute dyspnea Acute hypoxic respiratory failure Elevated troponin COVID-19 Normocytic hypochromic anemia Failure of outpatient treatment Bilateral edema of lower extremity Gout Tobacco use disorder Hematochezia History of pulmonary embolism Michela esophagitis Acute and chronic respiratory failure with hypoxia Chronic anticoagulation Obesity hypoventilation syndrome Multiple myeloma History of pulmonary embolism Acute exacerbation of chronic obstructive pulmonary disease Acute heart failure with preserved ejection fraction (HFpEF) Acute exacerbation of chronic obstructive pulmonary disease Tobacco abuse Opiate dependence Asthma Surgical History No pertinent past surgical history Family History Sister Asthma Social History Smoking Status: Unknown if ever smoked Tobacco Type: Cigarettes Age Started Using Tobacco: 15; Cigarettes Per Day: 4; Second Hand Exposure: No; Do You Dip or Chew Tobacco: No; Hx Alcohol Use: No Hx Substance Use: No Preferred Language: German Communication Ability: Effective 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 Cardiac: Regular rate and rhythm without murmurs gallops or rubs. Pulm: Expiratory wheeze noted throughout all lung soriano. No rales or rhonchi. Normal respiratory effort. 96% on room air. Abdominal: Soft, nontender, nondistended. Bowel sounds present. Neuro: A&O x3. No focal neurological deficits. Lower extremities: Left lower extremity with increased erythema and warmth around ankle and anterior superficial ulceration. Right lower extremity with chronic venous stasis changes. Trace peripheral edema noted bilaterally. Calves are equal size bilaterally. Duskiness of bilateral feet. Cap refill <3 seconds bilaterally. Pedal pulses present bilaterally. Results & Data Results & Data Vital Signs (Past 12 Hours) Vital Signs Temp Pulse Resp BP Pulse Ox O2 Del Method O2 Flow Rate 09/30/24 16:07 106 H 09/30/24 15:47 96 Room Air 0 09/30/24 15:24 97.0 F L 106 H 25 H 125/85 96 Room Air Laboratory Results Reviewed CBC with differential Reviewed coags Reviewed CMP, chemistries Diagnostic Findings Reviewed CXR Supervising Physician Co-Signing Physician Notes Patient seen and examined, chart reviewed, case discussed with Mine Ponce PA-C and I agree with the assessment and plan as above except as otherwise noted Labs and images reviewed 64yo F with frequent admissions who presents with progressive b/l LE pain x1 week. 'Painful beyond belief'. Tylenol has not helped her pain. L superficial ulcer with warmth, erythema. R w chronic venous stasis changes. Severe pain from the knees down. Dopplers ordered. Also w/ increased wheezing, no cough fever or sputum production She is at her dry weight Cannot beat weight or walk due to her pain/sx. Does not feel safe returning home Suspected mild demand ischemia Continue tylenol. Toradol limited by GERD/GI sx pending outpatient EGD. Continue suboxone. Nontoxic. Narrow abx to rocephin and trend CBC/CRP. Agree w/ above PG Care Time/CCT Total # of Minutes Spent Total Time Spent with Patient: Total time spent is greater than 50% in coordination of care (as documented) at patient's floor/unit and/or counseling patient: Coding Level of Care Code 85375 INT INP/OBS CARE 375MIN Diagnoses Cellulitis L03.90 COPD exacerbation J44.1
--- NOTE | 2024-09-30 16:53 | XRay Report ---
EXAM: Portable AP chest radiograph TECHNIQUE: AP portable radiograph of the chest was obtained. INDICATION: Shortness of breath Comparison: Chest radiograph August 28, 2024 FINDINGS: LINES and TUBES: None CARDIOVASCULAR: Cardiac silhouette is stably and mildly enlarged in size. LUNGS/PLEURA: No focal consolidation identified. Mild pulmonary vascular congestion and chronic interstitial changes of the lungs are similar to the previous radiograph. No significant pleural fluid. No discernible pneumothorax. OSSEOUS/OTHER: No displaced acute osseous process identified. Similar appearance of the callus seen along the anterolateral aspect of the right fourth rib. IMPRESSION: Similar mild congestive changes of the cardiovascular system compared to the previous radiograph. Electronically signed by Aneudy Barclay 09-30-2024 4:53 PM
[2024-09-30] MEDS: PIPERACILLIN/TAZOBACTAM 4.5 GM/100 ML BAG IV ONE (16:57)
[2024-09-30] MEDS: DAPTOmycin 850 MG in SYRINGE 0 ML IV ONE (17:03)
[2024-09-30] MEDS: ALPRAZolam 0.5 MG TABLET PO STA (18:46)
[2024-09-30] MEDS: methylPREDNISolone 125 MG/2 ML VIAL IV STA (18:47)
--- NOTE | 2024-09-30 19:42 | Ultrasound Report ---
Clinical History: Redness and swelling Technique: Venous ultrasound evaluation was performed utilizing grayscale, color Doppler and wave form evaluation. Images were also obtained with and without compression Findings: The bilateral common femoral, superficial femoral, popliteal, and visualized calf veins demonstrate normal anechoic lumens with full compressibility. Normal flow is seen on color Doppler images. Expected waveforms were produced with augmentation maneuvers Impression: No evidence of deep venous thrombosis Electronically signed by Juan Helton 09-30-2024 7:41 PM
[2024-09-30] MEDS ORDERED: IPRATROPIUM BROMIDE NEB SOLN 0.02% 0.5MG/2.5ML VIAL NEB PRN (20:07)
[2024-09-30] MEDS ORDERED: ALBUT/IPRATROP 3MG/0.5MG NEB 3 ML VIAL NEB PRN (20:07)
[2024-09-30] MEDS ORDERED: LEVALBUTEROL TARTRATE 15 GM HFA.AER.AD INH PRN (20:07)
[2024-09-30] MEDS ORDERED: ACETAMINOPHEN 325 MG TAB PO PRN (20:07)
[2024-09-30] MEDS ORDERED: DEXTROSE 50% 50 ML SYRINGE IV PRN (20:07)
[2024-09-30] MEDS ORDERED: LEVALBUTEROL 1.25 MG/3 ML NEB INH PRN (20:07)
[2024-09-30] MEDS ORDERED: POLYETHYLENE (MIRALAX) 17 GM PACK PO PRN (20:07)
[2024-09-30] MEDS ORDERED: GLUCOSE 10 TAB/TUBE PO PRN (20:07)
[2024-09-30] MEDS ORDERED: PHARMACY GLYCEMIC MGMT CONSULT PRN (20:07)
[2024-09-30] MEDS ORDERED: GLUCAGON FOR INJ 1 MG VIAL SQ PRN (20:07)
[2024-09-30] MEDS ORDERED: ONDANSETRON INJ 2 MG/ML 2 ML VIAL IV PRN (20:07)
[2024-09-30] MEDS ORDERED: CARBOHYDRATES FOR HYPOGLYCEMIA PO PRN (20:07)
[2024-09-30] MEDS ORDERED: GLUCOSE 40% GEL 15 GM TUBE PO PRN (20:07)
[2024-09-30] MEDS ORDERED: ALBUTEROL HFA 8 GM INHALER INH PRN (20:07)
[2024-09-30] MEDS: QUEtiapine FUMARATE 200 MG TAB PO SCH (21:20)
[2024-09-30] MEDS: CITALOPRAM 20 MG TAB PO SCH (21:20)
[2024-09-30] MEDS: FLUTICASONE PROPIONATE NA SPR 16 GM BTL SCH (21:20)
[2024-09-30] MEDS: guaiFENesin 600 MG TABCR PO SCH (21:20)
[2024-09-30] MEDS: LANTUS PER UNIT CHARGE SQ SCH (21:21)
[2024-09-30] MEDS: INSULIN ASPART PER UNIT CHARGE SC SCH (21:21)
[2024-09-30] MEDS: ENOXAPARIN 150 MG/ML SYR SQ SCH (21:27)
[2024-09-30] MEDS: ALBUT/IPRATROP 3MG/0.5MG NEB 3 ML VIAL NEB SCH (22:03)
[2024-09-30] MEDS: BUDESONIDE 0.25 MG/2 ML VIAL (PULMICORT) INH SCH (22:04)
[2024-09-30 22:35] LABS: C Reactive Protein 0.51 mg/dl (0-0.5)
[2024-10-01] MEDS: ALPRAZolam 0.5 MG TABLET PO PRN (06:21)
[2024-10-01 06:34] LABS: Basophils # (auto) 0.02 K/uL (0.00-0.20); Basophils % (auto) 0.1 %; Hematocrit (blood only) 45.1 % (37.0-47.0); Hemoglobin 14.4 g/dl (12.0-16.0); Immature Granulocytes # (auto) 0.17 K/uL (0.01-0.20); Immature Granulocytes % (auto) 1.2 %; Lymphocytes # (auto) 1.21 K/uL (1.20-3.40); Lymphocytes % (auto) 8.8 %; Mean Corpuscular Hemoglobin 25.9 pg (25.0-34.0); Mean Corpuscular Hgb Conc 31.9 g/dL (32.0-36.0); Mean Platelet Volume 10.3 fL (9.4-12.4); Monocytes % (auto) 2.9 %; Neutrophils # (auto) 11.93 K/uL (1.40-6.50); Platelet Count 282 K/uL (130-400); RDW Coefficient of Variation 18.1 % (11.5-14.5); RDW Standard Deviation 49.7 fL (36.4-46.3); Red Blood Count 5.57 M/uL (4.20-5.40); White Blood Count 13.73 K/ul (4.8-10.8)
[2024-10-01 06:53] LABS: Alanine Aminotransferase 21 U/L (7-52); Albumin Globulin Ratio 1.6 (0.9-2); Albumin Level 4.1 gm/dl (3.4-5.0); Alkaline Phosphatase 109 U/L (34-104); Anion Gap 9 (3-11); Aspartate Aminotransferase 14 U/L (13-39); BUN Creatinine Ratio 29.2 (10-20); Bilirubin,Total 0.4 mg/dl (0.2-1.0); Blood Urea Nitrogen 26 mg/dl (6-23); C Reactive Protein < 0.50 mg/dl (0-0.5); Carbon Dioxide 30 mmol/L (21-32); Chloride 92 mmol/L (98-107); Globulin 2.5 gm/dl (2.5-4.0); Glucose 190 mg/dl (70-99(Fasting)); Potassium 4.1 mmol/L (3.5-5.1); Sodium 131 mmol/L (136-145); Total Protein 6.6 gm/dl (6.0-8.3)
[2024-10-01] MEDS: LANTUS PER UNIT CHARGE SQ SCH (09:00)
[2024-10-01] MEDS ORDERED: NON-FORMULARY MEDICATION (Fluticasone-Umeclidin-Vilanter [Trelegy Ellipta] 200-62.5-25 mcg INH SCH (09:00)
[2024-10-01] MEDS: cefTRIAXone SODIUM 2,000 MG/50 ML BAG IV SCH (09:02)
[2024-10-01] MEDS: UMECLIDINIUM/VILANTEROL 62.5/25MCG 7 PUFFS/INHALER INH SCH (09:03)
[2024-10-01] MEDS: BUMETANIDE 1 MG TAB PO SCH (09:05)
[2024-10-01] MEDS: predniSONE 20 MG TAB PO SCH (09:05)
[2024-10-01] MEDS: AZITHROMYCIN 250 MG TAB PO SCH (09:05)
[2024-10-01] MEDS: PANTOprazole 40 MG TAB PO SCH (09:06)
[2024-10-01] MEDS: allopurinoL 300 MG TAB PO SCH (09:06)
[2024-10-01] MEDS: FLUTICASONE FUROATE 200MCG 14 PUFFS/INHALER INH SCH (09:06)
[2024-10-01] MEDS: BUPRENORPHINE/NALOXONE 8/2 MG TAB SL SCH ×2 (09:08→11:57)
--- NOTE | 2024-10-01 12:19 | Hospitalist Progress Note ---
Date of Service October 01, 2024 Assessment & Plan (1) Cellulitis: (2) COPD exacerbation: Plan Janae is a 64-year-old female with past medical history of chronic hypoxic/hypercapnic respiratory failure, COPD on PRN home O2, allergic asthma, T2DM, HFpEF, AYAN, history of opioid dependence, history of PE on Lovenox, and history of multiple myeloma who is well known to the hospital medicine service. She presented with bilateral lower extremity pain and likely has left lower extremity cellulitis. Also with likely COPD exacerbation. #LLE Cellulitis - with increased warmth, erythema, and superficial ulceration anteriorly Pro-Chad negative at 0.07, BNP mildly elevated at 116, CRP normalized Continue Rocephin/azithromycin. Anticipate azithromycin/cefdinir for discharge PT/OT pending #COPD exacerbation - with increased wheezing. CXR with similar mild congestive changes compared to previous CXR Azithromycin/Rocephin as noted Continue home inhalers Sputum cultures ordered Continue prednisone burst and then wean back to chronic 15 mg daily dose DuoNeb QID and Q2h PRN, incentive spirometry, Mucinex Supplemental O2 PRN for O2 goal >90% #T2DM A1c 8.7% in July 2024 Hold home regimen while inpatient SSI with target BSG range 208353lp/dL, CF 18, CR 6, Lantus 20 u BID Pharmacy glycemic management consult placed given increased steroid use #Elevated troponin Troponin elevated at 20.4 then down trended to 18.9. EKG without ischemic changes. No chest pain. Suspect demand ischemia in setting of acute infection and COPD exacerbation #HFpEF Does not appear to be in acute exacerbation on admission; euvolemic on serial exam Continue home Bumex 4 mg daily Daily weights, I+Os #Anxiety - Continue Citalopram, quetiapine, Xanax #History of opioid dependence - continue Suboxone #ELEUTERIO/obesity hypoventilation syndrome - continue CPAP HS Dispo: Med surg observation Admission and Anticipated Discharge Date Admission Date: September 30, 2024 Subjective Seen the bedside. She reports she still has pain in her legs that is limiting her from walking, but this is improving from yesterday. She does not know if her legs look better because she has vision deficits at baseline. She denies fever chills sweats chest pain or chest pressure overnight. CRP normalized, erythema vastly improved from prior although not completely resolved, afebrile. Recommended return home. She reports due to multiple readmissions and "if I go home early I will come back 10 times worse ". Did discuss risks of extended hospitalization community-acquired infections, blood clots, etc. She reports she does not feel safe returning home unless she has been stable for a full 24 hours. Fortunately she is progressing, will observe overnight and if stable will anticipate discharge home tomorrow on cefdinir/azithromycin. She is agreeable to this. Physical Exam Physical Exam: General: A&Ox3. NAD. Cooperative. HEENT: Atraumatic, normocephalic. Vision grossly intact, acuity is impaired at baseline. Hearing intact Pulm: Trace expiratory wheezes, Symmetrical chest rise. No increase in work of breathing. No respiratory distress. Cardiac: RRR, -mrg. Radial pulses intact and symmetrical. Abdominal: Nontender, nondistended, soft. BS present. Extremities: Left lower extremity with markedly improved although not resolved erythema. Improved, some slight increase compared to the right but about 90% improved compared to prior exam Results & Data Results & Data Vital Signs (Past 12 Hours) Vital Signs Temp Pulse Pulse Resp BP Pulse Ox O2 Del Method 10/01/24 08:00 Room Air 10/01/24 07:30 36.8 C 66 16 120/83 94 Room Air 10/01/24 07:11 101 H 18 98 Room Air 10/01/24 03:13 95 H 13 98 10/01/24 00:16 95 H 13 96 CPAP 10/01/24 00:15 95 H 13 95 O2 Flow Rate 10/01/24 08:00 10/01/24 07:30 10/01/24 07:11 10/01/24 03:13 2 10/01/24 00:16 2 10/01/24 00:15 2 PG Care Time/CCT Total # of Minutes Spent Total Time Spent with Patient: Total time spent is greater than 50% in coordination of care (as documented) at patient's floor/unit and/or counseling patient: Coding Level of Care Code 11400 SUB INP/OBS CARE 2/35MIN Diagnoses Cellulitis L03.90 Site of cellulitis: extremity Site of cellulitis of extremity: lower extremity COPD exacerbation J44.1 (1) Cellulitis Site of cellulitis: extremity Site of cellulitis of extremity: lower extremity
--- NOTE | 2024-10-01 13:30 | Electrocardiogram Report ---
Test Reason : Blood Pressure : */* mmHG Vent. Rate : 106 BPM Atrial Rate : 106 BPM P-R Int : 138 ms QRS Dur : 78 ms QT Int : 340 ms P-R-T Axes : 18 12 50 degrees QTcB Int : 451 ms Sinus tachycardia with Premature atrial complexes Low voltage QRS Possible Inferior infarct (cited on or before 16-Aug-2023) Cannot rule out Anterior infarct (cited on or before 28-Jul-2023) Abnormal ECG When compared with ECG of 28-Aug-2024 15:52, Premature atrial complexes are now Present Confirmed by Nelson Kenny [id number] on 10/01/2024 1:30:20 PM Referred By: REFERRED SELF Confirmed By: Nelson Kenny
--- NOTE | 2024-10-01 14:53 | Pharmacy Report ---
Pharmacy Glycemic Short Note 2 - Date of Service October 01, 2024 - Glycemic Short BSG Results (Last 24 hours): 09/30/24 09/30/24 10/01/24 15:48 20:38 06:07 Glucose 231 H 190 H POC Glucose 158 H 10/01/24 10/01/24 07:46 11:26 Glucose POC Glucose 245 H 172 H OUTPATIENT ANTIDIABETIC REGIMEN: * Lantus 50 units SC qAM * Novolog sliding scale * Tirzepatide 5 mg SC weekly A1c = 8.7 (08/10/24) ASSESSMENT: * Janae is a 64 yo T2DM with PMH of chronic hypoxic/hypercapnic respiratory failure, COPD, allergic asthma, HFpEF, AYAN, history of opioid dependence, history of PE on Lovenox, and history of multiple myeloma. Admitted with concerns for LLE cellulitis and COPD exacerbation. Started on antibiotics and steroids, currently prednisone 40 mg PO daily. * Patient is well known to the Pharmacy glycemic service. Insulin doses will be based on data from July 2024 admission. She was on oral prednisone during that visit as well. PLAN FOR INPATIENT GLYCEMIC CONTROL: * Hold outpatient oral diabetes medications * Basal insulin * Lantus 50 units SQ daily * Bolus insulin * NovoLog per scale ACHS or Q6hrs while NPO * Goal Range: Low 110 mg/dL - High 140 mg/dL * Correction Factor: 20 mg/dL/unit * Nutritional / Prandial insulin per carb ratio of 1 unit per 4 grams CHO consumed
--- NOTE | 2024-10-02 07:01 | Discharge Summary ---
Discharge Summary Date of Service October 02, 2024 Principal Dx & Hospital Course #1 = Principal Diagnosis (1) Cellulitis: (2) COPD exacerbation: Plan Janae is a 64-year-old female with past medical history of chronic hypoxic/hypercapnic respiratory failure, COPD on PRN home O2, allergic asthma, T2DM, HFpEF, AYAN, history of opioid dependence, history of PE on Lovenox, and history of multiple myeloma who is well known to the hospital medicine service. She presented with bilateral lower extremity pain and likely has left lower extremity cellulitis. Also with likely COPD exacerbation. #LLE Cellulitis - with increased warmth, erythema, and superficial ulceration anteriorly Pro-Chad negative at 0.07, BNP mildly elevated at 116, CRP normalized Continue Rocephin/azithromycin.Progressed, azithromycin/cefdinir to complete 7-day course on discharge Independently ambulatory #COPD exacerbation - with increased wheezing. CXR with similar mild congestive changes compared to previous CXR Azithromycin/Rocephin as noted Continue home inhalers Sputum cultures ordered Continue prednisone burst and then wean back to chronic 15 mg daily dose DuoNeb QID and Q2h PRN, incentive spirometry, Mucinex Supplemental O2 PRN for O2 goal >90% #T2DM A1c 8.7% in July 2024 Hold home regimen while inpatient SSI with target BSG range 482329ct/dL, CF 18, CR 6, Lantus 20 u BID Pharmacy glycemic management consult placed given increased steroid use #Elevated troponin Troponin elevated at 20.4 then down trended to 18.9. EKG without ischemic changes. No chest pain. Suspect demand ischemia in setting of acute infection and COPD exacerbation #HFpEF Does not appear to be in acute exacerbation on admission; euvolemic on serial exam Continue home Bumex 4 mg daily Daily weights, I+Os #Anxiety - Continue Citalopram, quetiapine, Xanax #History of opioid dependence - continue Suboxone #ELEUTERIO/obesity hypoventilation syndrome - continue CPAP HS Dispo: Med surg observation Admission HPI Per Admitting Provider Janae is a 64-year-old female with past medical history of chronic hypoxic/hypercapnic respiratory failure, COPD on PRN home O2, allergic asthma, T2DM, HFpEF, AYAN, history of opioid dependence, history of PE on Lovenox, and history of multiple myeloma who is well known to the hospital medicine service. 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 At the time my exam, the patient was lying in bed in no acute distress. She states she has had progressive pain for >1 week but could not specify beyond that. She reports that her lower extremities are "painful be a belief. I can't describe it more than that." She has a superficial nonhealing ulcer on her anterior left lower extremity that she noticed for the first time yesterday, 09/29. She reports she cannot bear weight secondary to pain. She states her lower extremities are equally painful bilaterally, but notes the pain is more around her dailey/calf on the right and around her ankle on the left side. Additionally, she reports "feeling a COPD flareup coming on." She notes this began yesterday, 09/29. She reports feeling wheezy, but denies increased cough or sputum production or dyspnea. Vitals on admission significant for mild tachycardia with HR in 90s; vitals otherwise stable. Labs on admission are significant for mild leukocytosis with WBC 14.28 with neutrophil predominance, mild hyponatremia with Na 130, BNP mildly elevated at 116, procalcitonin negative at 0.07. CXR on admission reveals similar mild congestive changes compared to previous CXR. We discussed code status, patient wishes to be a full code. Discharge Plan Discharge Items Reason For Visit: CELLULITIS, COPD EXACERBATION Condition on Discharge: Fair Follow-up/Referrals: Radha Barboza PA-C [Primary Care Provider] - Medications and DC Order Prescriptions: No Action bumetanide 2 mg tablet 4 mg PO DAILY Qty: 360 3RF Hold Instructions: Resume on 09/02/24. Rx Instructions: PER PT "TAKE 4 MG BID EVERY DAY". Can increase to 4 mg BID as needed for weight gain. budesonide 0.25 mg/2 mL suspension for nebulization 0.25 mg inhalation BID Qty: 60 3RF Trelegy Ellipta 200-62.5-25 mcg blister with device 1 ea INHALATION QAM Qty: 60 5RF albuterol sulfate 90 mcg/actuation HFA aerosol inhaler 2 puff INHALATION Q4H PRN (Reason: Shortness Of Breath Or Wheezing) Qty: 8.5 0RF levalbuterol HCl 1.25 mg/3 mL solution for nebulization 1.25 mg INHALATION Q8H PRN (Reason: Shortness Of Breath Or Wheezing) ipratropium bromide 0.02 % solution 3 ml continuous nebulization QID PRN (Reason: shortness of breath) Qty: 75 0RF allopurinol 300 mg tablet 300 mg PO DAILY levalbuterol tartrate 45 mcg/actuation HFA aerosol inhaler 2 puff INHALATION Q6H PRN (Reason: WHEEZE) citalopram 20 mg tablet 20 mg PO HS spironolactone 100 mg Tablet 100 mg PO BID17 Qty: 60 0RF Hold Instructions: Hyperkalemia Rx Instructions: ON HOLD PER PT prednisone 5 mg tablet 15 mg PO DAILY Rx Instructions: PER PT "IF NEEDED, MAY TAKE ADDITIONAL 5 MG FOR TROUBLE BREATHING". insulin aspart U-100 [Novolog FlexPen U-100 Insulin] 100 unit/mL (3 mL) insulin pen See Rx Instructions .ROUTE .COMPLEX Rx Instructions: SLIDING SCALE WITH MEALS alprazolam 0.5 mg tablet 0.5 mg PO TID PRN (Reason: ANXIETY ) Hold Instructions: Resume on 04/06/24. Hold while you finish the course of fluconazole for the oral and esophageal thrush Rx Instructions: TAKES 0600, 1200, & 1800 DAILY EVERY DAY. PT MAY TAKE AN EXTRA TAB FOR ACUTE PANIC ATTACKS- MAX 3 TABS DAILY ondansetron 4 mg tablet,disintegrating 4 mg PO Q8 PRN (Reason: NAUSEA/VOMITING) insulin glargine [Lantus Solostar U-100 Insulin] 100 unit/mL (3 mL) insulin pen 50 unit SUBCUT QAM colchicine 0.6 mg capsule 0.6 mg PO DAILY PRN (Reason: joint pain) Qty: 30 0RF buprenorphine-naloxone 4-1 mg film 1 film sublingual DAILY Mounjaro 5 mg/0.5 mL pen injector 5 mg subcut WK Rx Instructions: SATURDAYS pantoprazole 40 mg Tablet,Delayed Release (Dr/Ec) 40 mg PO QAM Qty: 30 5RF Rx Instructions: for esophagus pain/stomach quetiapine 100 mg tablet 200 mg PO HS Qty: 0 0RF enoxaparin [Lovenox] 150 mg/mL Syringe 135 mg subcut Q24H Qty: 0 0RF Rx Instructions: PER PT "TAKING THE WHOLE SYRINGE". you will have to "waste" a small amount of the lovenox to give yourself the correct dose of lovenox. Your dose based on weight is 135mg. Only give yourself 0.9ml of the lovenox syringe. You will be "wasting" 0.1ml each time to you take the lovenox. guaifenesin [Mucinex] 600 mg tablet extended release 12hr 1,200 mg PO Q12 PRN (Reason: Congestion) Qty: 0 0RF Admission Data Admit Date/Time: 09/30/24 17:46 Attending Provider: Jaziel Ellsworth Admit Provider: Jaziel Ellsworth Primary Care Provider: Radha Barboza Other Providers: Jaziel Ellsworth Hospital Stay Data Consultations 09/30/24 16:36 ED Decision to Admit Stat Diagnostic Imagining Performed 09/30/24 17:56 US venous doppler LE Stat Coding Diagnoses Cellulitis L03.90 Site of cellulitis: extremity Site of cellulitis of extremity: lower extremity COPD exacerbation J44.1
[2024-10-02 07:24] LABS: Basophils # (auto) 0.03 K/uL (0.00-0.20); Basophils % (auto) 0.2 %; Eosinophils # (auto) 0.03 K/uL (0.00-0.50); Eosinophils % (auto) 0.2 %; Hematocrit (blood only) 44.5 % (37.0-47.0); Hemoglobin 13.9 g/dl (12.0-16.0); Immature Granulocytes # (auto) 0.17 K/uL (0.01-0.20); Immature Granulocytes % (auto) 1.2 %; Lymphocytes # (auto) 2.09 K/uL (1.20-3.40); Lymphocytes % (auto) 14.6 %; Mean Corpuscular Hemoglobin 25.7 pg (25.0-34.0); Mean Corpuscular Hgb Conc 31.2 g/dL (32.0-36.0); Mean Corpuscular Volume 82.4 fL (80.0-100.0); Mean Platelet Volume 10.5 fL (9.4-12.4); Monocytes # (auto) 0.73 K/uL (0.11-0.59); Monocytes % (auto) 5.1 %; Neutrophils # (auto) 11.31 K/uL (1.40-6.50); Neutrophils % (auto) 78.7 %; Platelet Count 247 K/uL (130-400); RDW Coefficient of Variation 17.8 % (11.5-14.5); RDW Standard Deviation 51.3 fL (36.4-46.3); White Blood Count 14.36 K/ul (4.8-10.8)
[2024-10-02 07:38] LABS: BUN Creatinine Ratio 38.7 (10-20); Calcium 8.6 mg/dl (8.6-10.3); Creatinine Clr Calc Pharmacy 61.3 ml/min; Potassium 3.9 mmol/L (3.5-5.1)
[2024-10-02] MEDS: BUPRENORPHINE/NALOXONE 8/2 MG TAB SL SCH (08:26)
[2024-10-02] MEDS: LANTUS PER UNIT CHARGE SQ SCH (08:33)
--- NOTE | 2024-10-02 08:52 | Hospitalist Progress Note ---
Date of Service October 02, 2024 Assessment & Plan (1) Cellulitis: Plan: Plan Janae is a 64-year-old female with past medical history of chronic hypoxic/hypercapnic respiratory failure, COPD on PRN home O2, allergic asthma, T2DM, HFpEF, AYAN, history of opioid dependence, history of PE on Lovenox, and history of multiple myeloma who is well known to the hospital medicine service. She presented with bilateral lower extremity pain and likely has left lower extremity cellulitis. Also with likely COPD exacerbation. #LLE Cellulitis - with increased warmth, erythema, and superficial ulceration anteriorly - Pro-Chad negative at 0.07, BNP mildly elevated at 116, CRP normalized Continue Rocephin/azithromycin. Anticipate azithromycin/cefdinir for discharge Clinically improving. - Continue rocephin abx for 7 day course through 10/08 #COPD exacerbation - with increased wheezing. CXR with similar mild congestive changes compared to previous Increased wheezing, conversational dyspnea 10/03. Increased to methylpred 40mg BID. Wean as tolerated. On rocephin for cellulitis. 3 day course of Azithromycin complete 10/03 Continue home inhalers Sputum cultures ordered DuoNeb QID and Q2h PRN, incentive spirometry, Mucinex Supplemental O2 PRN for O2 goal >90% #T2DM A1c 8.7% in July 2024 Hold home regimen while inpatient SSI with target BSG range 472070kf/dL, CF 18, CR 6, Lantus 20 u BID Pharmacy glycemic management following #Elevated troponin Troponin elevated at 20.4 then down trended to 18.9. EKG without ischemic changes. No chest pain. Suspect demand ischemia in setting of acute infection and COPD exacerbation #HFpEF Does not appear to be in acute exacerbation on admission; euvolemic on serial exam Continue home Bumex 4 mg daily Daily weights, I+Os #Anxiety - Continue Citalopram, quetiapine, Xanax #History of opioid dependence - continue Suboxone #ELEUTERIO/obesity hypoventilation syndrome - continue CPAP HS Dispo: [facility]. Discharge held 10/02 due to increased wheezing in all soriano, worsening COPD exacerbation. Cellulitis fortuantely is improving. Hopeful for dc 10/03 if wheezing/breathing improving --> steroid taper as outpt (2) COPD exacerbation: Admission and Anticipated Discharge Date Admission Date: September 30, 2024 Physical Exam Physical Exam: General: A&Ox3. NAD. Cooperative. HEENT: Atraumatic, normocephalic. Vision grossly intact, acuity is impaired at baseline. Hearing intact Pulm: Scattered expiratory wheezes, worse than prior. No rhonchi/rales. Symmetrical chest rise. No increase in work of breathing. No respiratory distress. Cardiac: RRR, -mrg. Radial pulses intact and symmetrical. Abdominal: Nontender, nondistended, soft. BS present. Extremities: Left lower extremity with overlying wound, erythema resolved. No warmth. No tenderness on palpation. Chronic stasis changes b/l Results & Data Results & Data Vital Signs (Past 12 Hours) Vital Signs Temp Pulse Pulse Pulse Resp BP Pulse Ox 10/02/24 07:47 92 H 18 94 10/02/24 07:43 36.5 C 91 H 18 106/74 94 10/02/24 04:25 82 12 98 10/02/24 00:08 85 16 98 10/01/24 22:26 92 H 15 98 O2 Del Method O2 Flow Rate 10/02/24 07:47 Room Air 10/02/24 07:43 Room Air 10/02/24 04:25 2 10/02/24 00:08 CPAP 2 10/01/24 22:26 2 PG Care Time/CCT Total # of Minutes Spent Total Time Spent with Patient: Total time spent is greater than 50% in coordination of care (as documented) at patient's floor/unit and/or counseling patient: Coding Level of Care Code 94107 SUB INP/OBS CARE 3/50MIN Diagnoses Cellulitis L03.90 Site of cellulitis: extremity Site of cellulitis of extremity: lower extremity COPD exacerbation J44.1 (1) Cellulitis Site of cellulitis: extremity Site of cellulitis of extremity: lower extremity
[2024-10-02] MEDS ORDERED: methylPREDNISolone 125 MG/2 ML VIAL IV SCH (21:00)
[2024-10-02] MEDS: methylPREDNISolone 40 MG in SYRINGE 0 ML IV SCH (21:02)
[2024-10-03 03:03] VITALS: RESP 16
[2024-10-03 07:25] VITALS: O2SAT 98
[2024-10-03 07:40] LABS: Hematocrit (blood only) 43.4 % (37.0-47.0); Hemoglobin 13.8 g/dl (12.0-16.0); Mean Corpuscular Hemoglobin 26.5 pg (25.0-34.0); Mean Corpuscular Hgb Conc 31.8 g/dL (32.0-36.0); Mean Corpuscular Volume 83.5 fL (80.0-100.0); Mean Platelet Volume 10.2 fL (9.4-12.4); Platelet Count 231 K/uL (130-400); RDW Coefficient of Variation 17.3 % (11.5-14.5); RDW Standard Deviation 51.8 fL (36.4-46.3); White Blood Count 15.54 K/ul (4.8-10.8)
[2024-10-03 07:53] LABS: Anion Gap 11 (3-11); BUN Creatinine Ratio 38.8 (10-20); Blood Urea Nitrogen 40 mg/dl (6-23); Calcium 8.6 mg/dl (8.6-10.3); Carbon Dioxide 30 mmol/L (21-32); Chloride 91 mmol/L (98-107); Creatinine Clr Calc Pharmacy 55.3 ml/min; Glucose 216 mg/dl (70-99(Fasting)); Sodium 132 mmol/L (136-145)
[2024-10-03 07:56] VITALS: TEMP 97.2
[2024-10-03 08:03] LABS: Basophils # (auto) 0.03 K/uL (0.00-0.20); Basophils % (auto) 0.2 %; Eosinophils # (auto) 0.01 K/uL (0.00-0.50); Eosinophils % (auto) 0.1 %; Immature Granulocytes # (auto) 0.25 K/uL (0.01-0.20); Immature Granulocytes % (auto) 1.6 %; Lymphocytes # (auto) 1.24 K/uL (1.20-3.40); Monocytes # (auto) 0.58 K/uL (0.11-0.59); Monocytes % (auto) 3.7 %; Neutrophils # (auto) 13.43 K/uL (1.40-6.50); Neutrophils % (auto) 86.4 %; Ovalocytes 1+; Platelet Estimate Normal (Normal)
[2024-10-03] MEDS: LANTUS PER UNIT CHARGE SQ SCH (08:34)
[2024-10-03] MEDS: BUPRENORPHINE/NALOXONE 8/2 MG TAB SL SCH (08:36)
--- NOTE | 2024-10-03 11:13 | Discharge Summary ---
Discharge Summary Date of Service October 03, 2024 Principal Dx & Hospital Course #1 = Principal Diagnosis (1) Cellulitis: (2) COPD exacerbation: Plan #LLE Cellulitis - Janae is a 64-year-old female with past medical history of chronic hypoxic/hypercapnic respiratory failure, COPD on PRN home O2, allergic asthma, T2DM, HFpEF, AYAN, history of opioid dependence, history of PE on Lovenox, and history of multiple myeloma who is well known to the hospital medicine service. She presented with bilateral lower extremity pain and likely has left lower extremity cellulitis. Also with likely COPD exacerbation. Cellulitis responded well to ceftriaxone, crp normalized. Discharged with course of cefedinir. information given for outpatient wound care appointment for left lowe leg wound. #COPD exacerbation - with increased wheezing. CXR with similar mild congestive changes compared to previous. wheezing improved with IV steorids. completed 3 day course of azithromycin. Continue home inhalers. Discharged with prednisone to taper back to home dose of 15mg #T2DM A1c 8.7% in July 2024. continue home regiment #Elevated troponin Troponin elevated at 20.4 then down trended to 18.9. EKG without ischemic changes. No chest pain. Suspect demand ischemia in setting of acute infection and COPD exacerbation #HFpEF Does not appear to be in acute exacerbation on admission; euvolemic on serial exam Continue home Bumex 4 mg daily #Anxiety - Continue Citalopram, quetiapine, Xanax #History of opioid dependence - continue Suboxone #ELEUTERIO/obesity hypoventilation syndrome - continue CPAP HS dispo: discharge to home today Discharge Exam General: NAD, VS as above Resp: normal respiratory effort, lungs coarse LLL CV: RRR, no murmur, Abd: normal bowel sounds, non tender, no hepatosplenomegaly Extremities: Moves all extremities, LE not swollen, signs of venous stasis with purple color changes to dailey, wound over LLE without signs of infection Neuro: A&O x3, Discharge Plan Discharge Items Patient Disposition: Home - Self-Care Reason For Visit: CELLULITIS, COPD EXACERBATION Discharge Diagnosis: Cellulitis, COPD exacerbation Condition on Discharge: Fair Activity: Resume your previous activity Bathing: No limitations Driving/Machine Use: No limitations Weightbearing: Full weightbearing Non-emergency contact: Primary Care Provider Call non-emergency contact if: you have any medication questions, your symptoms worsen and your temperature is above 101 Follow-up/Referrals: Radha Barboza PA-C [Primary Care Provider] - 10/05/24 10:40 am (follow up within one week THIS APPT WILL BE A HOSPITAL FOLLOW UP VISIT. KEEP YOUR APPT TOMORROW 10/04 WITH MERLE) Diet: Carb Consistent or DM2 and Heart Healthy Addtl Attending Provider Instructions: Janae, You were hospitalized after concerns for cellulitis and a COPD exacerbation. Thankfully you have improved with IV antibiotics and steroids. You will be discharged home on a prednisone taper to get you back to your 15mg dose and a course of antibiotics - cefdinir. Both of these medications are to start tomorrow, 10/04. Your blood sugars should improved as you will no longer be on IV steroids. Regarding the wound on your leg, it is important to keep that area clean and dry. If you continue to have issues with this you can talk to your PCP about a referral to outpatient wound care center. You are doing well with your leg swelling/CHF keep it up! You have blood cultures pending at the time of discharge, they are negative at 48 hours but take 5 days to get final results. If they turn positive you will be notified, you can also check in with your PCP or the [facility] portal. However, given your symptoms I do not expect they will be positive. Pending Studies at Discharge: Yes (blood cultures ) Stand-Alone Forms: [employer], Smoking Cessation Medications and DC Order Prescriptions: New cefdinir 300 mg capsule 300 mg PO BID Qty: 8 0RF prednisone 10 mg tablet See Taper PO DIRECTED Qty: 27 0RF Taper: Taper, Blank 40 mg DAILY for 3 Days 30 mg DAILY for 3 Days 20 mg DAILY for 3 Days Rx Instructions: see taper instructions - after completion of taper return to 15mg daily Continued bumetanide 2 mg tablet 4 mg PO DAILY Qty: 360 3RF Hold Instructions: Resume on 09/02/24. Rx Instructions: PER PT "TAKE 4 MG BID EVERY DAY". Can increase to 4 mg BID as needed for gonzalo ght gain. budesonide 0.25 mg/2 mL suspension for nebulization 0.25 mg inhalation BID Qty: 60 3RF Trelegy Ellipta 200-62.5-25 mcg blister with device 1 ea INHALATION QAM Qty: 60 5RF albuterol sulfate 90 mcg/actuation HFA aerosol inhaler 2 puff INHALATION Q4H PRN (Reason: Shortness Of Breath Or Wheezing) Qty: 8.5 0RF levalbuterol HCl 1.25 mg/3 mL solution for nebulization 1.25 mg INHALATION Q8H PRN (Reason: Shortness Of Breath Or Wheezing) ipratropium bromide 0.02 % solution 3 ml continuous nebulization QID PRN (Reason: shortness of breath) Qty: 75 0RF allopurinol 300 mg tablet 300 mg PO DAILY levalbuterol tartrate 45 mcg/actuation HFA aerosol inhaler 2 puff INHALATION Q6H PRN (Reason: WHEEZE) citalopram 20 mg tablet 20 mg PO HS spironolactone 100 mg Tablet 100 mg PO BID17 Qty: 60 0RF Hold Instructions: Hyperkalemia Rx Instructions: ON HOLD PER PT insulin aspart U-100 [Novolog FlexPen U-100 Insulin] 100 unit/mL (3 mL) insulin pen See Rx Instructions .ROUTE .COMPLEX Rx Instructions: SLIDING SCALE WITH MEALS alprazolam 0.5 mg tablet 0.5 mg PO TID PRN (Reason: ANXIETY ) Hold Instructions: Resume on 04/06/24. Hold while you finish the course of fluconazole for the oral and esophageal thrush Rx Instructions: TAKES 0600, 1200, & 1800 DAILY EVERY DAY. PT MAY TAKE AN EXTRA TAB FOR ACUTE PANIC ATTACKS- MAX 3 TABS DAILY ondansetron 4 mg tablet,disintegrating 4 mg PO Q8 PRN (Reason: NAUSEA/VOMITING) insulin glargine [Lantus Solostar U-100 Insulin] 100 unit/mL (3 mL) insulin pen 50 unit SUBCUT QAM colchicine 0.6 mg capsule 0.6 mg PO DAILY PRN (Reason: joint pain) Qty: 30 0RF buprenorphine-naloxone 4-1 mg film 1 film sublingual DAILY Mounjaro 5 mg/0.5 mL pen injector 5 mg subcut WK Rx Instructions: SATURDAYS pantoprazole 40 mg Tablet,Delayed Release (Dr/Ec) 40 mg PO QAM Qty: 30 5RF Rx Instructions: for esophagus pain/stomach quetiapine 100 mg tablet 200 mg PO HS Qty: 0 0RF enoxaparin [Lovenox] 150 mg/mL Syringe 135 mg subcut Q24H Qty: 0 0RF Rx Instructions: PER PT "TAKING THE WHOLE SYRINGE". you will have to "waste" a small amount of the lovenox to give yourself the correct dose of lovenox. Your dose based on weight is 135mg. Only give yourself 0.9ml of the lovenox syringe. You will be "wasting" 0.1ml each time to you take the lovenox. guaifenesin [Mucinex] 600 mg tablet extended release 12hr 1,200 mg PO Q12 PRN (Reason: Congestion) Qty: 0 0RF Held prednisone 5 mg tablet 15 mg PO DAILY Hold Instructions: Provider's Order - until prednisone taper is over Rx Instructions: PER PT "IF NEEDED, MAY TAKE ADDITIONAL 5 MG FOR TROUBLE BREATHING". Discharge Orders: Discharge Order (Routine); Ordered 10/03/24 Ordered By: Ale Burns Admission Data Admit Date/Time: 09/30/24 17:46 Attending Provider: Maurilio Herndon Admit Provider: Jaziel Ellsworth Primary Care Provider: Radha Barboza Other Providers: Jaziel Ellsworth Other Interventions: Discharge Summary Assessment (RN) Last Done: 10/03/24 11:58 Hospital Stay Data Consultations 09/30/24 16:36 ED Decision to Admit Stat Diagnostic Imagining Performed Chest X-Ray 09/30/24 15:28 EXAM: Portable AP chest radiograph TECHNIQUE: AP portable radiograph of the chest was obtained. INDICATION: Shortness of breath Comparison: Chest radiograph August 28, 2024 FINDINGS: LINES and TUBES: None CARDIOVASCULAR: Cardiac silhouette is stably and mildly enlarged in size. LUNGS/PLEURA: No focal consolidation identified. Mild pulmonary vascular congestion and chronic interstitial changes of the lungs are similar to the previous radiograph. No significant pleural fluid. No discernible pneumothorax. OSSEOUS/OTHER: No displaced acute osseous process identified. Similar appearance of the callus seen along the anterolateral aspect of the right fourth rib. IMPRESSION: Similar mild congestive changes of the cardiovascular system compared to the previous radiograph. Electronically signed by Aneudy Barclay 09-30-2024 4:53 PM Venous Doppler Study 09/30/24 17:56 Clinical History: Redness and swelling Technique: Venous ultrasound evaluation was performed utilizing grayscale, color Doppler and wave form evaluation. Images were also obtained with and without compression Findings: The bilateral common femoral, superficial femoral, popliteal, and visualized calf veins demonstrate normal anechoic lumens with full compressibility. Normal flow is seen on color Doppler images. Expected waveforms were produced with augmentation maneuvers Impression: No evidence of deep venous thrombosis Electronically signed by Juan Helton 09-30-2024 7:41 PM Pending Results Patient Have Any Pending Studies at Discharge: Yes (blood cultures ) Discharge Instructions Given to Patient (Per Discharging Provider) Janae, You were hospitalized after concerns for cellulitis and a COPD exacerbation. Thankfully you have improved with IV antibiotics and steroids. You will be discharged home on a prednisone taper to get you back to your 15mg dose and a course of antibiotics - cefdinir. Both of these medications are to start tomorrow, 10/04. Your blood sugars should improved as you will no longer be on IV steroids. Regarding the wound on your leg, it is important to keep that area clean and dry. If you continue to have issues with this you can talk to your PCP about a referral to outpatient wound care center. You are doing well with your leg swelling/CHF keep it up! You have blood cultures pending at the time of discharge, they are negative at 48 hours but take 5 days to get final results. If they turn positive you will be notified, you can also check in with your PCP or the [facility] portal. Ho wever, given your symptoms I do not expect they will be positive. Supervising Physician Co-Signing Physician Notes The patient was not seen by me. The chart was reviewed. Case discussed with YELENA Daniel. Agree with assessment and plan Total Time Total Time Spent Total Time Spent (In Minutes): Time spent day of discharge 32 minutes including direct patient care, medication reconciliation, documentation, review of labs and images, and coordination of care. Coding Level of Care Code 85128 INP/OBS DISCH >30 MIN Diagnoses Cellulitis L03.90 Site of cellulitis: extremity Site of cellulitis of extremity: lower extremity COPD exacerbation J44.1
[2024-10-03 11:59] VITALS: BP 115/69; PULSE 19
== END 2024-10-03 12:38 | disposition home or self-care (01) ==
LOC: 3N 15:23 → ED 15:23 → SUATTDRO 17:46 → 3N 19:54

== ENCOUNTER 2024-11-19 16:30 | Inpatient (IN) ==
[2024-11-19] MEDS: ALBUT/IPRATROP 3MG/0.5MG NEB 3 ML VIAL INH STA (17:13)
[2024-11-19 17:19] LABS: Hematocrit (blood only) 45.9 % (37.0-47.0); Hemoglobin 14.6 g/dl (12.0-16.0); Immature Granulocytes # (auto) 0.45 K/uL (0.01-0.20); Immature Granulocytes % (auto) 2.4 %; Mean Corpuscular Hemoglobin 26.4 pg (25.0-34.0); Mean Corpuscular Volume 82.9 fL (80.0-100.0); Platelet Count 314 K/uL (130-400); RDW Standard Deviation 56.9 fL (36.4-46.3); Red Blood Count 5.54 M/uL (4.20-5.40); White Blood Count 18.57 K/ul (4.8-10.8)
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
[2024-11-19] MEDS: BUPRENORPHINE/NALOXONE 2/0.5MG TAB SL ONE (17:29)
[2024-11-19 17:30] LABS: Base Excess VBG 10.0 mEq/L; HCO3 VBG 35 mmol/L; Oxygen Saturation VBG 67.1 %; PCO2 VBG 47 mmHg (38-50); PO2 VBG 36 mmHg; pH VBG 7.48 (7.36-7.41)
[2024-11-19 17:37] LABS: Anisocytosis Present; Ovalocytes 1+
[2024-11-19 17:40] LABS: Alanine Aminotransferase 22.0 U/L (7-52); Albumin Globulin Ratio 1.2 (0.9-2); Alkaline Phosphatase 125.0 U/L (34-104); Anion Gap 10.0 (3-11); Bilirubin,Total 0.5 mg/dl (0.2-1.0); Blood Urea Nitrogen 19.0 mg/dl (6-23); Calcium 9.4 mg/dl (8.6-10.3); Carbon Dioxide 32.0 mmol/L (21-32); Chloride 92.0 mmol/L (98-107); Creatinine Clr Calc Pharmacy 51.6 ml/min; Globulin 3.3 gm/dl (2.5-4.0); Glucose 167.0 mg/dl (70-99(Fasting)); Magnesium 1.9 mg/dl (1.7-2.4); Potassium 4.5 mmol/L (3.5-5.1); Sodium 134.0 mmol/L (136-145); Total Protein 7.2 gm/dl (6.0-8.3)
[2024-11-19 18:15] LABS: Coronavirus 229E PCR Not Detected (NotDetected); Coronavirus CoV-2 (COVID19)PCR Not Detected (NotDetected); Coronavirus HKU1 PCR Not Detected (NotDetected); Coronavirus NL63 PCR Not Detected (NotDetected); Coronavirus OC43PCR Not Detected (NotDetected); Human Metapneumovirus PCR Not Detected (NotDetected); Parainfluenza Virus 1 PCR Not Detected (NotDetected); Parainfluenza Virus 2 PCR Not Detected (NotDetected); Parainfluenza Virus 3 PCR Not Detected (NotDetected); Parainfluenza Virus 4 PCR Not Detected (NotDetected); Respiratory Syncytial VirusPCR Not Detected (NotDetected); Rhinovirus/Enterovirus PCR Not Detected (NotDetected)
[2024-11-19 18:16] LABS: Chlamydia pneumoniae PCR Not Detected (NotDetected)
[2024-11-19] MEDS: ALBUT/IPRATROP 3MG/0.5MG NEB 3 ML VIAL NEB ONE (19:16)
--- NOTE | 2024-11-19 19:25 | XRay Report ---
EXAM: XR chest 1V portable CLINICAL HISTORY: Dyspnea. TECHNIQUE: An X-ray image of the chest is obtained in AP projection. COMPARISON: prior chest X-ray dated 10/25/2024. FINDINGS: Pulmonary Parenchyma: Still noted increased bronchovascular markings. Rather stable right basal reticulates, suggesting atelectatic lines. Slightly blunted right pleural recess, may denote minimal pleural effusion or thickening (new). No evidence of left pleural effusion or pleural thickening. Heart and Mediastinum: Heart size and shape are normal. No mediastinal widening or masses. No hilar or mediastinal lymphadenopathy. Bony Thorax: Bony thorax appears intact without fractures or deformities. Soft Tissues: Soft tissues overlying the chest wall are unremarkable. IMPRESSION: 1. Slightly blunted right pleural recess, may denote minimal pleural effusion or thickening (new). 2. Unchanged rest of the study. Electronically signed by Axel Arias 11-19-2024 7:25 PM
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
[2024-11-19] MEDS ORDERED: ALBUT/IPRATROP 3MG/0.5MG NEB 3 ML VIAL NEB PRN ×2 (21:11→22:38)
[2024-11-19] MEDS: MAGNESIUM SULFATE / D5W 1 GM/100 ML BAG IV ONE (21:37)
[2024-11-19] MEDS ORDERED: GLUCAGON FOR INJ 1 MG VIAL SQ PRN (22:38)
[2024-11-19] MEDS ORDERED: PHARMACY GLYCEMIC MGMT CONSULT PRN (22:38)
[2024-11-19] MEDS ORDERED: DOCUSATE SODIUM 100 MG CAP PO PRN (22:38)
[2024-11-19] MEDS ORDERED: ACETAMINOPHEN 325 MG TAB PO PRN (22:38)
[2024-11-19] MEDS ORDERED: GLUCOSE 40% GEL 15 GM TUBE PO PRN (22:38)
[2024-11-19] MEDS ORDERED: ONDANSETRON INJ 2 MG/ML 2 ML VIAL IV PRN (22:38)
[2024-11-19] MEDS ORDERED: MELATONIN 3 MG TAB PO PRN (22:38)
[2024-11-19] MEDS ORDERED: BENZONATATE 100 MG CAPSULE PO PRN (22:38)
[2024-11-19] MEDS ORDERED: DEXTROSE 50% 50 ML SYRINGE IV PRN (22:38)
[2024-11-19] MEDS ORDERED: GLUCOSE 10 TAB/TUBE PO PRN (22:38)
[2024-11-19] MEDS ORDERED: CARBOHYDRATES FOR HYPOGLYCEMIA PO PRN (22:38)
[2024-11-19] MEDS ORDERED: COLCHICINE 0.6 MG TAB PO PRN (22:42)
[2024-11-19] MEDS: CITALOPRAM 20 MG TAB PO SCH (23:22)
[2024-11-19] MEDS: INSULIN ASPART PER UNIT CHARGE SC SCH (23:28)
[2024-11-20] MEDS: INSULIN ASPART PER UNIT CHARGE SC ONE (04:21)
[2024-11-20 06:15] LABS: Hematocrit (blood only) 43.5 % (37.0-47.0); Hemoglobin 14.1 g/dl (12.0-16.0); Immature Granulocytes # (auto) 0.46 K/uL (0.01-0.20); Immature Granulocytes % (auto) 2.6 %; Mean Corpuscular Hemoglobin 26.7 pg (25.0-34.0); Mean Corpuscular Volume 82.2 fL (80.0-100.0); Platelet Count 302 K/uL (130-400); RDW Standard Deviation 54.9 fL (36.4-46.3); Red Blood Count 5.29 M/uL (4.20-5.40); White Blood Count 17.57 K/ul (4.8-10.8)
[2024-11-20 06:36] LABS: Anion Gap 12.0 (3-11); Blood Urea Nitrogen 25.0 mg/dl (6-23); Calcium 9.1 mg/dl (8.6-10.3); Carbon Dioxide 30.0 mmol/L (21-32); Chloride 92.0 mmol/L (98-107); Creatinine Clr Calc Pharmacy 43.3 ml/min; Glucose 220.0 mg/dl (70-99(Fasting)); Magnesium 2.5 mg/dl (1.7-2.4); Potassium 4.4 mmol/L (3.5-5.1); Sodium 134.0 mmol/L (136-145)
[2024-11-20] MEDS: ALBUT/IPRATROP 3MG/0.5MG NEB 3 ML VIAL NEB SCH (07:23)
[2024-11-20] MEDS: BUDESONIDE 0.25 MG/2 ML VIAL (PULMICORT) INH SCH (07:23)
[2024-11-20] MEDS: FLUTICASONE FUROATE 200MCG 14 PUFFS/INHALER INH SCH (08:05)
[2024-11-20] MEDS: UMECLIDINIUM/VILANTEROL 62.5/25MCG 7 PUFFS/INHALER INH SCH (08:05)
[2024-11-20] MEDS: BUMETANIDE 1 MG TAB PO SCH (08:06)
[2024-11-20] MEDS: ENOXAPARIN 150 MG/ML SYR SQ SCH (08:06)
[2024-11-20] MEDS: guaiFENesin 600 MG TABCR PO SCH (08:07)
[2024-11-20] MEDS: BUPRENORPHINE/NALOXONE 2/0.5MG TAB SL SCH (08:10)
[2024-11-20] MEDS: LANTUS PER UNIT CHARGE SQ SCH (08:50)
[2024-11-20] MEDS ORDERED: NON-FORMULARY MEDICATION (Fluticasone-Umeclidin-Vilanter [Trelegy Ellipta] 200-62.5-25 mcg INH SCH (09:00)
--- NOTE | 2024-11-20 09:15 | Pharmacy Report ---
Pharmacy Glycemic Short Note 2 - Date of Service November 20, 2024 - Glycemic Short BSG Results (Last 24 hours): 11/19/24 11/19/24 11/20/24 17:10 23:23 04:17 Glucose 167 H POC Glucose 245 H 208 H 11/20/24 11/20/24 05:27 07:50 Glucose 220 H POC Glucose 217 H OUTPATIENT ANTIDIABETIC REGIMEN: * Lantus 50 units SQ QAM * SS NovoLog * HbA1c 9.0% (10/28/24) ASSESSMENT: * Janae is a 64 year old female admitted with COPD/Asthma exacerbation and a history of T2DM. Pharmacy has been consulted to assist with glycemic management while inpatient. * Receiving IV methylprednisolone 40mg IV BID (received 125mg x in ED yesterday), will stress home dose of Lantus. Janae is well known to the glycemic service and will base insulin dosing off of previous admission. NovoLog per prior data. PLAN FOR INPATIENT GLYCEMIC CONTROL: * Hold outpatient oral diabetes medications * Basal insulin * Lantus 60 units SQ QAM * Bolus insulin * NovoLog per scale ACHS or Q6hrs while NPO * Goal Range: Low 110 mg/dL - High 140 mg/dL * Correction Factor: 20 mg/dL/unit * Nutritional / Prandial insulin per carb ratio of 1 unit per 4 grams CHO consumed
--- NOTE | 2024-11-20 12:27 | Hospitalist Progress Note ---
Date of Service November 20, 2024 Assessment & Plan (1) Acute exacerbation of chronic obstructive airways disease: (2) Hypoxia: (3) Current chronic use of systemic steroids: (4) Venous ulcers of both lower extremities: Plan 64 y/o with chronically poorly controlled asthma/COPD overlap, chronic HFpEF, ELEUTERIO, DM2, anxiety, former opioid dependence, multiple myeloma s/p bone marrow transplant, current smoker, admitted with acute exacerbation of COPD with symptoms of chest tightness, wheezing, and brown sputum producing cough. #COPD/Asthma exacerbation/hypoxia CXR: slightly blunted right pleural recess, may denote minimal pleural effusion/thickening. unchanged remainder of study. CBC w/ leukocytosis, likely secondary to chronic steroid use vs infx secondary to leg wounds. BMP stable. Previous sputum cultures negative. Duonebs QID, flutter valve QID; IS; Mucinex BID Continue home inhalers. Goal oxygen 88-92%, prn O2 if below these paramaters. #Chronic leg wounds recent leg culture from 11/17 + for staph aureus - sensitivities reviewed, MSSA Leg wounds inspected 11/20, did not appear overtly infected. No purulent drainage observed. + for bloody drainage. Start Keflex QID Wound nurse consulted . Continue to follow w/ wound clinic #elevated troponin 17.8 on admission, at baseline. Patient denies CP. Repeat 11/20 AM was ~16 Mild elevation demand secondary to hypoxia. #anxiety and opioid dependence Continue Suboxone 2mg daily -> slowly tapering off Xanax TID Continue Seroquel & Celexa. #Chronic HFpEF no acute exacerbation BNP WNL on admission Does not appear fluid overloaded on PE Continue Bumex. #DM2 last HgbA1c 9.0% pharmacy consult placed - IV steroid use Continue basal bolus + SS insulin She is on Mounjaro as an outpatient #ELEUTERIO -continue CPAP at bedtime #hx DVTs on chronic enoxaparin - continue Lovenox VTE ppx: continue home Lovenox Code: full Admission and Anticipated Discharge Date Admission Date: November 19, 2024 Fina Cardoso seen and examined this morning. Reports she has been having shortness of breath and cough for about 1 week. States when she was recently at the wound clinic, the provider told her she did not sound well. States she thinks she is in an exacerbation secondary to the weather. Reports she has been taking care of her wounds at home very closely. Physical Exam Constitutional: WD/WN, vitals as above Eyes: PERRL, conjunctivae normal, anicteric sclerae Respiratory: scattered wheezing throughout bases forced expiratory exhalation observed/auscultated @ top of lung soriano. Cardiovascular: RRR, no murmur, no edema Skin: wounds reviewed - scattered small round open sores w/ no purulent drainage. no surrounding erythema around them. Neurologic: PERRL, EOMI, accommodation nl, no face palsy, no dysarthria Psychiatric: A+Ox3, euthymic affect Results & Data Results & Data Vital Signs (Past 12 Hours) Vital Signs Temp Pulse Pulse Resp BP Pulse Ox O2 Del Method 11/20/24 11:50 36.5 C 109 H 20 126/87 98 Nasal Cannula 11/20/24 10:14 102 H 16 96 Room Air 11/20/24 09:32 Room Air 11/20/24 09:32 102 H 11/20/24 07:55 36.5 C 106 H 18 138/75 95 Room Air 11/20/24 07:25 104 H 16 96 Nasal Cannula 11/20/24 04:14 36.4 C L 103 H 18 127/78 98 CPAP 11/20/24 02:39 101 H 11 L 99 O2 Flow Rate 11/20/24 11:50 11/20/24 10:14 11/20/24 09:32 11/20/24 09:32 11/20/24 07:55 11/20/24 07:25 2 11/20/24 04:14 11/20/24 02:39 2 PG Care Time/CCT Total # of Minutes Spent Total Time Spent with Patient: Total time spent is greater than 50% in coordination of care (as documented) at patient's floor/unit and/or counseling patient: Coding Level of Care Code 92160 SUB INP/OBS CARE 3/50MIN Diagnoses Acute exacerbation of chronic obstructive airways disease J44.1 Hypoxia R09.02 Current chronic use of systemic steroids Z79.52 Venous ulcers of both lower extremities I83.019; I83.029; L97.919; L97.929
[2024-11-20] MEDS: SOD PHOSPHATE/SOD BIPHOSPHATE ENEMA 132 ML BTL PR STA (20:58)
[2024-11-21 08:07] LABS: Hematocrit (blood only) 44.1 % (37.0-47.0); Hemoglobin 14.7 g/dl (12.0-16.0); Mean Corpuscular Hemoglobin 27.2 pg (25.0-34.0); Mean Corpuscular Volume 81.5 fL (80.0-100.0); Platelet Count 300 K/uL (130-400); RDW Standard Deviation 53.4 fL (36.4-46.3); Red Blood Count 5.41 M/uL (4.20-5.40); White Blood Count 23.13 K/ul (4.8-10.8)
[2024-11-21 08:28] LABS: Anion Gap 11.0 (3-11); Blood Urea Nitrogen 41.0 mg/dl (6-23); Calcium 9.1 mg/dl (8.6-10.3); Carbon Dioxide 30.0 mmol/L (21-32); Chloride 90.0 mmol/L (98-107); Creatinine Clr Calc Pharmacy 46.1 ml/min; Glucose 194.0 mg/dl (70-99(Fasting)); Magnesium 2.3 mg/dl (1.7-2.4); Potassium 4.6 mmol/L (3.5-5.1); Sodium 131.0 mmol/L (136-145)
--- NOTE | 2024-11-21 14:20 | Hospitalist Progress Note ---
Date of Service November 21, 2024 Assessment & Plan (1) Acute exacerbation of chronic obstructive airways disease: (2) Hypoxia: (3) Current chronic use of systemic steroids: (4) Venous ulcers of both lower extremities: Plan 64 y/o with chronically poorly controlled asthma/COPD overlap, chronic HFpEF, ELEUTERIO, DM2, anxiety, former opioid dependence, multiple myeloma s/p bone marrow transplant, current smoker, admitted with acute exacerbation of COPD with symptoms of chest tightness, wheezing, and brown sputum producing cough. #COPD/Asthma exacerbation/hypoxia CXR: slightly blunted right pleural recess, may denote minimal pleural effusion/thickening. unchanged remainder of study. CBC w/ leukocytosis, likely secondary to chronic steroid use vs infx secondary to leg wounds. BMP stable. Previous sputum cultures negative. Duonebs QID, flutter valve QID; IS; Mucinex BID Continue home inhalers. Goal oxygen 88-92%, prn O2 if below these paramaters. #Chronic leg wounds recent leg culture from 11/17 + for staph aureus - sensitivities reviewed, MSSA Leg wounds inspected 11/20, did not appear overtly infected. No purulent drainage observed. + for bloody drainage. Continue Keflex QID Wound nurse consulted . Continue to follow w/ wound clinic #elevated troponin 17.8 on admission, at baseline. Patient denies CP. Repeat 11/20 AM was ~16 Mild elevation demand secondary to hypoxia. #anxiety and opioid dependence Continue Suboxone 2mg daily -> slowly tapering off Xanax TID Continue Seroquel & Celexa. #Chronic HFpEF no acute exacerbation BNP WNL on admission Does not appear fluid overloaded on PE Continue Bumex. #DM2 last HgbA1c 9.0% pharmacy consult placed - IV steroid use Continue basal bolus + SS insulin She is on Mounjaro as an outpatient #ELEUTERIO -continue CPAP at bedtime #hx DVTs on chronic enoxaparin - continue Lovenox, dose adjusted by pharmacy due to weight loss on 11/21. VTE ppx: continue home Lovenox Code: full Admission and Anticipated Discharge Date Admission Date: November 19, 2024 Subjective Janae seen and examined this morning. States she is SOB today and cannot bring up mucus. Denies any CP. Physical Exam Constitutional: WD/WN, vitals as above Respiratory: diminished lung sounds throughout. wheezing at bases. Cardiovascular: RRR, no murmur, no edema Skin: LE wounds covered w/ bandage. Neurologic: PERRL, EOMI, accommodation nl, no face palsy, no dysarthria Psychiatric: A+Ox3, euthymic affect Results & Data Results & Data Vital Signs (Past 12 Hours) Vital Signs Temp Pulse Pulse Pulse Resp BP Pulse Ox 11/21/24 11:35 18 94 11/21/24 11:32 36.6 C 114 H 23 153/94 H 94 11/21/24 08:00 103 H 11/21/24 07:45 36.3 C L 106 H 22 147/92 H 98 11/21/24 07:35 11/21/24 07:19 17 95 11/21/24 04:22 36.4 C L 98 H 18 119/71 92 11/21/24 03:25 13 O2 Del Method O2 Flow Rate 11/21/24 11:35 Room Air 11/21/24 11:32 Room Air 11/21/24 08:00 11/21/24 07:45 Room Air 11/21/24 07:35 Room Air 11/21/24 07:19 Room Air 11/21/24 04:22 Room Air 11/21/24 03:25 2 PG Care Time/CCT Total # of Minutes Spent Total Time Spent with Patient: Total time spent is greater than 50% in coordination of care (as documented) at patient's floor/unit and/or counseling patient: Coding Level of Care Code 46010 SUB INP/OBS CARE 2/35MIN Diagnoses Acute exacerbation of chronic obstructive airways disease J44.1 Hypoxia R09.02 Current chronic use of systemic steroids Z79.52 Venous ulcers of both lower extremities I83.019; I83.029; L97.919; L97.929
[2024-11-22 06:52] LABS: Hematocrit (blood only) 43.3 % (37.0-47.0); Hemoglobin 13.9 g/dl (12.0-16.0); Mean Corpuscular Hemoglobin 26.4 pg (25.0-34.0); Mean Corpuscular Volume 82.3 fL (80.0-100.0); Platelet Count 265 K/uL (130-400); RDW Standard Deviation 54.6 fL (36.4-46.3); Red Blood Count 5.26 M/uL (4.20-5.40); White Blood Count 20.73 K/ul (4.8-10.8)
[2024-11-22 07:11] LABS: Anion Gap 9.0 (3-11); Blood Urea Nitrogen 44.0 mg/dl (6-23); Calcium 9.0 mg/dl (8.6-10.3); Carbon Dioxide 31.0 mmol/L (21-32); Chloride 93.0 mmol/L (98-107); Creatinine Clr Calc Pharmacy 50.3 ml/min; Glucose 178.0 mg/dl (70-99(Fasting)); Magnesium 2.3 mg/dl (1.7-2.4); Potassium 4.1 mmol/L (3.5-5.1); Sodium 133.0 mmol/L (136-145)
[2024-11-22] MEDS: ENOXAPARIN INJ 120 MG/0.8 ML SYR SQ SCH (08:02)
--- NOTE | 2024-11-22 09:45 | Pharmacy Report ---
Pharmacy Glycemic Short Note 2 - Date of Service November 22, 2024 - Glycemic Short BSG Results (Last 24 hours): 11/21/24 11/21/24 11/21/24 11:31 16:43 17:01 Glucose POC Glucose 166 H 330 H* 239 H 11/21/24 11/22/24 11/22/24 20:19 06:36 07:16 Glucose 178 H POC Glucose 311 H* 197 H OUTPATIENT ANTIDIABETIC REGIMEN: * Lantus 50 units SQ QAM * SS NovoLog HbA1c: 9.0% (10/28/24) ASSESSMENT: 11/22/24: * Blood sugars elevated yesterday, ranging 166-311 mg/dL * Received 119 units of insulin (~50/50 basal/bolus split) * Methylprednisolone 40 mg IV administered this AM, then discontinued * Starting prednisone 20 mg PO daily tomorrow AM 11/20/24: * Janae is a 64 year old female admitted with COPD/Asthma exacerbation and a history of T2DM. * Pharmacy has been consulted to assist with glycemic management while inpatient. * Receiving IV methylprednisolone 40mg IV BID (received 125mg x in ED yesterday), will stress home dose of Lantus. Janae is well known to the glycemic service and will base insulin dosing off of previous admission. NovoLog per prior data. PLAN FOR INPATIENT GLYCEMIC CONTROL: * Likely loosen insulin regimen tomorrow w/ steroid reduction * Basal insulin * Lantus 60 units SQ QAM * Bolus insulin * NovoLog per scale ACHS or Q6hrs while NPO * Goal Range: Low 110 mg/dL - High 140 mg/dL * Correction Factor: 20 mg/dL/unit * Nutritional / Prandial insulin per carb ratio of 1 unit per 3 grams CHO consumed
--- NOTE | 2024-11-22 12:03 | Hospitalist Progress Note ---
Date of Service November 22, 2024 Assessment & Plan (1) Acute exacerbation of chronic obstructive airways disease: (2) Hypoxia: (3) Current chronic use of systemic steroids: (4) Venous ulcers of both lower extremities: Plan 64 y/o with chronically poorly controlled asthma/COPD overlap, chronic HFpEF, ELEUTERIO, DM2, anxiety, former opioid dependence, multiple myeloma s/p bone marrow transplant, current smoker, admitted with acute exacerbation of COPD with symptoms of chest tightness, wheezing, and brown sputum producing cough. #COPD/Asthma exacerbation/hypoxia CXR: slightly blunted right pleural recess, may denote minimal pleural effusion/thickening. unchanged remainder of study. CBC w/ leukocytosis, likely secondary to chronic steroid use Previous sputum cultures negative. no sputume productibe since admission Started on IV methylpred - transition to PO prednisone in AM 20mg, to transition back to home slow taper at 15mg Duonebs QID, flutter valve QID; IS; Mucinex BID Continue home inhalers. Discussed with RT - Janae not allowing for full treatments to be completed when giving nebs. Will try to add perforomist #Chronic leg wounds recent leg culture from 11/17 + for staph aureus - sensitivities reviewed, MSSA Leg wounds inspected 11/20, did not appear overtly infected. No purulent drainage observed. + for bloody drainage. Continue Keflex QID Wound nurse consulted . Continue to follow w/ wound clinic OP #elevated troponin 17.8 --> 16 on admission, at baseline. Patient denies CP. Mild elevation demand secondary to hypoxia. #anxiety and opioid dependence Continue Suboxone 2mg daily -> slowly tapering off Xanax TID . Continue Seroquel & Celexa. #Chronic HFpEF no acute exacerbation. Continue Bumex. #DM2 last HgbA1c 9.0% pharmacy consult placed - IV steroid use Continue basal bolus + SS insulin She is on Mounjaro as an outpatient #ELEUTERIO -continue CPAP at bedtime #hx DVTs on chronic enoxaparin - continue Lovenox, dose adjusted by pharmacy due to weight loss on 11/21. will likely need a new rx VTE ppx: continue home Lovenox Dispo: continued inpatient stay, downgrade to medical Will need wound care follow up at discharge Admission and Anticipated Discharge Date Admission Date: November 19, 2024 Subjective Janae seen this morning, sitting up in the chair. States that she feels like her chest was very tight and she is not able to breathe well. Tried to walk in the halls but had to stop because she felt like she could not breathe. States she does not like to take allergy medicine because of the way it makes her feels Denies coughing but reports she is taking her Mucinex. Sinus rhythm 90s to 100 Review of Systems Review of Systems: All systems reviewed & are unremarkable except as noted in Subjective Physical Exam Physical Exam: General: NAD, VS as above, sitting up to the chair Resp: normal respiratory effort, poor air flow, no coughing, wheezing expiratory throughout, worse in the bases CV: RRR, no murmur, Abd: normal bowel sounds, non tender, no hepatosplenomegaly Extremities: Moves all extremities, no edema - wounds covered Neuro: A&O x3, Results & Data Results & Data Vital Signs (Past 12 Hours) Vital Signs Temp Pulse Pulse Pulse Resp BP Pulse Ox 11/22/24 11:16 18 95 11/22/24 11:02 97.3 F L 114 H 19 126/73 93 11/22/24 08:00 96 H 11/22/24 07:25 11/22/24 07:20 84 18 95 11/22/24 07:17 97.5 F L 106 H 22 134/84 99 11/22/24 03:00 97.5 F L 98 H 20 126/87 96 11/22/24 00:41 96 H 14 O2 Del Method 11/22/24 11:16 Room Air 11/22/24 11:02 Room Air 11/22/24 08:00 11/22/24 07:25 Room Air 11/22/24 07:20 Room Air 11/22/24 07:17 Room Air 11/22/24 03:00 Room Air 11/22/24 00:41 Laboratory Results CBC and chemistry reviewed PG Care Time/CCT Total # of Minutes Spent Total Time Spent with Patient: Total time spent is greater than 50% in coordination of care (as documented) at patient's floor/unit and/or counseling patient: Coding Level of Care Code 36529 SUB INP/OBS CARE 3/50MIN Diagnoses Acute exacerbation of chronic obstructive airways disease J44.1 Hypoxia R09.02 Current chronic use of systemic steroids Z79.52 Venous ulcers of both lower extremities I83.019; I83.029; D13.838; C80.897
[2024-11-22] MEDS: FORMOTEROL 20 MCG/2 ML VIAL NEB SCH (19:22)
[2024-11-23] MEDS: predniSONE 20 MG TAB PO SCH (09:08)
[2024-11-23] MEDS: LANTUS PER UNIT CHARGE SQ SCH (09:09)
--- NOTE | 2024-11-23 11:34 | Pharmacy Report ---
Pharmacy Glycemic Short Note 2 - Date of Service November 23, 2024 - Glycemic Short BSG Results (Last 24 hours): 11/22/24 11/22/24 11/23/24 16:25 20:00 07:42 POC Glucose 229 H 189 H 164 H OUTPATIENT ANTIDIABETIC REGIMEN: * Lantus 50 units SQ QAM * SS NovoLog HbA1c: 9.0% (10/28/24) ASSESSMENT: 11/23/24: * Janae received 121 units of insulin yesterday (60 basal) * Fasting BSG this AM at goal, steroids switched from IV methylprednisolone to prednisone 20mg daily. Will reduce basal insulin by ~30% with steroid reduction. * NovoLog loosened with switch to prednisone this AM. 11/22/24: * Blood sugars elevated yesterday, ranging 166-311 mg/dL * Received 119 units of insulin (~50/50 basal/bolus split) * Methylprednisolone 40 mg IV administered this AM, then discontinued * Starting prednisone 20 mg PO daily tomorrow AM 11/20/24: * Janae is a 64 year old female admitted with COPD/Asthma exacerbation and a history of T2DM. * Pharmacy has been consulted to assist with glycemic management while inpatient. * Receiving IV methylprednisolone 40mg IV BID (received 125mg x in ED yesterday), will stress home dose of Lantus. Janae is well known to the glycemic service and will base insulin dosing off of previous admission. NovoLog per prior data. PLAN FOR INPATIENT GLYCEMIC CONTROL: * Basal insulin * Lantus 45 units SQ QAM * Bolus insulin * NovoLog per scale ACHS or Q6hrs while NPO * Goal Range: Low 110 mg/dL - High 140 mg/dL * Correction Factor: 20 mg/dL/unit * Nutritional / Prandial insulin per carb ratio of 1 unit per 5 grams CHO consumed
--- NOTE | 2024-11-23 11:38 | Hospitalist Progress Note ---
Date of Service November 23, 2024 Assessment & Plan (1) Acute exacerbation of chronic obstructive airways disease: (2) Hypoxia: (3) Current chronic use of systemic steroids: (4) Venous ulcers of both lower extremities: Plan 64 y/o with chronically poorly controlled asthma/COPD overlap, chronic HFpEF, ELEUTERIO, DM2, anxiety, former opioid dependence, multiple myeloma s/p bone marrow transplant, current smoker, admitted with acute exacerbation of COPD with symptoms of chest tightness, wheezing, and brown sputum producing cough. #COPD/Asthma exacerbation/hypoxia - CXR: slightly blunted right pleural recess, may denote minimal pleural effusion/thickening. unchanged remainder of study. - CBC w/ leukocytosis, likely secondary to chronic steroid use - Previous sputum cultures negative. no sputum productible since admission - Now on PO prednisone 20 mg QAM (IV methylpred discontinued). Plan to slowly taper back to home dose of 15 mg daily - Duonebs QID, Perforomist neb BID, flutter valve QID; IS; Mucinex BID - Continue home inhalers #Chronic leg wounds - recent leg culture from 11/17 + for staph aureus - sensitivities reviewed, MSSA - Leg wounds inspected 11/20, did not appear overtly infected. No purulent drainage observed. + for bloody drainage. Continue Keflex QID - Wound nurse consulted. Continue to follow w/ wound clinic OP #elevated troponin - 17.8 --> 16 on admission, at baseline. Patient denies CP. - Mild elevation due to demand ischemia secondary to hypoxia #anxiety and opioid dependence - Continue Suboxone 2mg daily -> slowly tapering off - Xanax TID . Continue Seroquel & Celexa. #Chronic HFpEF - no acute exacerbation. Continue Bumex. #DM2 - last HgbA1c 9.0% - Pharmacy consult placed - IV steroid use - Continue basal bolus + SS insulin - She is on Mounjaro as an outpatient #ELEUTERIO - continue CPAP at bedtime #hx DVTs on chronic enoxaparin - continue Lovenox, dose adjusted by pharmacy due to weight loss on 11/21. will likely need a new prescription on discharge VTE ppx: continue home Lovenox Dispo: Anticipate discharge home 11/24. Janae reports her pharmacy will not refill her Suboxone because she got a narcotic prescription. Reviewed PDMP and looks like Kristy Evans prescribed tramadol recently. Will ask navigator for CCP notes tomorrow 11/24 as I do not see any notes in [facility] from Kristy Evans. Would caution refilling Suboxone prescription if she recently filled the tramadol prescription. Will need wound care follow up at discharge Admission and Anticipated Discharge Date Admission Date: November 19, 2024 Supervising Physician Co-Signing Physician Notes chart reviewed, case d/w S Rosario PARKER. as above Subjective Patient seen and evaluated in bedside chair. She reports that the Perforomist that was added yesterday has been helping her loosen up her mucus. She states her chest still feels tight when taking a deep breath. She says that her legs are still painful from her wounds. She is now stable on room air and on oral steroids. We discussed possible discharge today (as this was the plan laid out by hospitalist yesterday) however she claims this was not discussed with her at all. She reports that she "needs another day or 2 to ensure she is ready." I encouraged her to take all of her breathing treatments, as yesterday respiratory therapy reported she frequently stops treatments after a few minutes. We discussed that we will continue her treatment as ordered for now, with the plan of discharge home tomorrow 11/24. Physical Exam Physical Exam: General: No acute distress, nondiaphoretic. Skin: Warm, dry. Wounds on LE covered in dressings. Dry scaly skin on LE bilaterally. No peripheral edema noted. Cardiac: Regular rate and rhythm without murmurs gallops or rubs. Pulm: Expiratory wheeze present throughout. Clear inspiration but poor air flow. No rales or rhonchi. Normal respiratory effort. 95% on room air. Abdominal: Soft, nontender, nondistended. Bowel sounds present. Neuro: A&O x3. No focal neurological deficits. Results & Data Results & Data Vital Signs (Past 12 Hours) Vital Signs Temp Pulse Pulse Resp BP Pulse Ox O2 Del Method 11/23/24 09:07 Room Air 11/23/24 07:22 97.3 F L 78 16 150/87 H 95 Room Air 11/23/24 07:22 98 H 20 95 Room Air 11/23/24 02:15 70 12 99 11/23/24 00:45 88 12 94 PG Care Time/CCT Total # of Minutes Spent Total Time Spent with Patient: Total time spent is greater than 50% in coordination of care (as documented) at patient's floor/unit and/or counseling patient: Coding Level of Care Code 11203 SUB INP/OBS CARE 2/35MIN Diagnoses Acute exacerbation of chronic obstructive airways disease J44.1 Hypoxia R09.02 Current chronic use of systemic steroids Z79.52 Venous ulcers of both lower extremities I83.019; I83.029; L97.919; L97.929
[2024-11-24 07:41] VITALS: BP 132/94; TEMP 98.4
[2024-11-24] MEDS: LANTUS PER UNIT CHARGE SQ SCH (09:21)
[2024-11-24 10:20] LABS: Hematocrit (blood only) 49.0 % (37.0-47.0); Hemoglobin 15.4 g/dl (12.0-16.0); Mean Corpuscular Hemoglobin 26.1 pg (25.0-34.0); Mean Corpuscular Volume 83.1 fL (80.0-100.0); Platelet Count 293 K/uL (130-400); RDW Standard Deviation 55.6 fL (36.4-46.3); Red Blood Count 5.90 M/uL (4.20-5.40); White Blood Count 16.11 K/ul (4.8-10.8)
[2024-11-24 10:40] LABS: Creatinine Clr Calc Pharmacy 69.0 ml/min
--- NOTE | 2024-11-24 11:18 | Discharge Summary ---
Discharge Summary Date of Service November 24, 2024 Principal Dx & Hospital Course #1 = Principal Diagnosis (1) Acute exacerbation of chronic obstructive airways disease: (2) Hypoxia: (3) Current chronic use of systemic steroids: (4) Venous ulcers of both lower extremities: Plan 64 y/o with chronically poorly controlled asthma/COPD overlap, chronic HFpEF, ELEUTERIO, DM2, anxiety, former opioid dependence, multiple myeloma s/p bone marrow transplant, current smoker, admitted with acute exacerbation of COPD with symptoms of chest tightness, wheezing, and brown sputum producing cough. #COPD/Asthma exacerbation/hypoxia - CXR: slightly blunted right pleural recess, may denote minimal pleural effusion/thickening. unchanged remainder of study. - CBC w/ leukocytosis, likely secondary to chronic steroid use - Previous sputum cultures negative. no sputum productible since admission - Treated with IV methylprednisolone, and then transition to oral steroids, tapered back to home dose of prednisone 50 mg daily on discharge - Continue home inhalers #Chronic leg wounds - recent leg culture from 11/17 + for staph aureus - sensitivities reviewed, MSSA - Leg wounds inspected 11/20, did not appear overtly infected. No purulent drainage observed. + for bloody drainage. - Continue Keflex QID through 11/27 - Wound nurse consulted. Continue to follow w/ wound clinic OP #elevated troponin - 17.8 --> 16 on admission, at baseline. Patient denies CP. - Mild elevation due to demand ischemia secondary to hypoxia #anxiety and opioid dependence - Continue Suboxone 2mg daily -> slowly tapering off. Janae reports she needs her Suboxone refilled. Discussed this with Dr. Shaniqua Gracia who prescribes her Suboxone. She has already violated her CSA per Dr. Gracia. She has been taking tramadol, she has prescribed 60 pills on 10/10 by Nati Evans and 20 pills on 11/02 by Wilfred Calabrese. She was continued on tramadol this hospital stay, taking 100 mg usually twice daily. Dr. Gracia is willing to send a 7-day prescription into her pharmacy on day of discharge and Janae will need to follow- up with her outpatient ZOILA - Xanax TID . Continue Seroquel & Celexa. #Chronic HFpEF - no acute exacerbation. Continue Bumex. #DM2 - last HgbA1c 9.0% - Pharmacy consult placed - IV steroid use - Continue basal bolus + SS insulin - She is on Mounjaro as an outpatient #ELEUTERIO - continue CPAP at bedtime #hx DVTs on chronic enoxaparin - continue Lovenox, dose adjusted by pharmacy due to weight loss on 11/21. Sent new prescription to pharmacy on discharge with proper dose VTE ppx: Lovenox Dispo: Discharged home 11/24 Admission HPI Per Admitting Provider 64 y/o with chronically poorly controlled asthma/COPD overlap, chronic HFpEF, ELEUTERIO, DM2, anxiety, former opioid dependence, multiple myeloma s/p bone marrow transplant, current smoker being admitted with acute exacerbation of COPD. Patient seen at bedside. She stated over the past couple days she has had shortness of breath and extremechest tightness as well as a brown sputum producing cough. She denies any fevers or sick contacts. She denies any chest pain, abdominal pain, vomiting, diarrhea however she has felt nauseous. She was 86% on room air in the ED and tachycardic, D-dimer negative, VBG WNL, electrolytes WNL. She is also concerned because she is out of her Xanax and Suboxone as her PCP is on vacation. She is due for her evening medications. She uses 2 to 3 L oxygen at home as needed when she feels short of breath and has CPAP chest. She wishes to be full code and stated that her son is her power of patent prosecution attorney. She wants it to be known that her sister has no medical power of patent prosecution attorney. Discharge Exam General: No acute distress, nondiaphoretic. Skin: Warm, dry. Wounds on LE covered in dressings. Dry scaly skin on LE bilaterally. No peripheral edema noted. Cardiac: Regular rate and rhythm without murmurs gallops or rubs. Pulm: Mildmoderate expiratory wheeze throughout. Clear inspiration but poor airflow. No rales or rhonchi. Normal respiratory effort. 96% on room air. Abdominal: Soft, nontender, nondistended. Bowel sounds present. Neuro: A&O x3. No focal neurological deficits. Discharge Plan Discharge Items Patient Disposition: Home - Self-Care Reason For Visit: COPD EXACERBATION Discharge Diagnosis: COPD exacerbation Condition on Discharge: Fair Activity: Resume your previous activity Non-emergency contact: Primary Care Provider Call non-emergency contact if: you have any medication questions and your symptoms worsen Follow-up/Referrals: Radha Barboza PA-C [Primary Care Provider] - 11/30/24 9:45 am (Follow-up in 1-2 weeks) Diet: Carb Consistent or DM2 and Low Sodium (2gm) Addtl Attending Provider Instructions: Janae, You were admitted to the hospital with a COPD exacerbation. You have improved with steroids and breathing treatments. You are stable on room air and have been tapered down on steroids so that you can continue your usual dose of prednisone 15 mg daily starting tomorrow, 11/25. Continue your home inhalers as prescribed. You also have continued on the oral antibiotic for your leg wounds and these are improving. Continue Keflex 4 times daily through 11/27/24. It is important to keep the wounds on your leg clean and dry. Continue to follow-up with the wound care center. I have sent in a new prescription for Lovenox as you needed a new dose due to weight loss. I have discussed your Suboxone prescription with Dr. Gracia who is aware that your prescription needs to be refilled and we will send something into your pharmacy today. Please follow-up with your PCP in 1-2 weeks. Continue to follow a low-sodium diet (less than 2000 mg of sodium daily) and total liquid intake less than 2000 mL daily. Pending Studies at Discharge: No Stand-Alone Forms: My [facility] [employer] [facility], Smoking Cessation Medications and DC Order Prescriptions: New enoxaparin [Lovenox] 120 mg/0.8 mL Syringe 120 mg subcut DAILY Qty: 8 0RF cephalexin 500 mg Capsule 500 mg PO QID Qty: 14 0RF Continued bumetanide 2 mg tablet 4 mg PO DAILY Qty: 360 3RF Hold Instructions: Resume on 09/02/24. Rx Instructions: PER PT "TAKE 4 MG BID EVERY DAY". Can increase to 4 mg BID as needed for weight gain. albuterol sulfate 90 mcg/actuation HFA aerosol inhaler 2 puff INHALATION Q4H PRN (Reason: Shortness Of Breath Or Wheezing) Qty: 8.5 3RF levalbuterol tartrate 45 mcg/actuation HFA aerosol inhaler 2 puff INHALATION Q6H PRN (Reason: WHEEZE) Qty: 15 3RF budesonide 0.25 mg/2 mL suspension for nebulization 0.25 mg inhalation BID Qty: 60 3RF Trelegy Ellipta 200-62.5-25 mcg blister with device 1 ea INHALATION QAM Qty: 60 5RF levalbuterol HCl 1.25 mg/3 mL solution for nebulization 1.25 mg INHALATION Q8H PRN (Reason: Shortness Of Breath Or Wheezing) ipratropium bromide 0.02 % solution 3 ml continuous nebulization QID PRN (Reason: shortness of breath) Qty: 75 0RF allopurinol 300 mg tablet 300 mg PO DAILY citalopram 20 mg tablet 20 mg PO HS Mounjaro 7.5 mg/0.5 mL pen injector 7.5 mg SUBCUT WK insulin aspart U-100 [Novolog FlexPen U-100 Insulin] 100 unit/mL (3 mL) insulin pen 0 sliding scale dose subcut TIDM Rx Instructions: SLIDING SCALE WITH MEALS alprazolam 0.5 mg tablet 0.5 mg PO TID Hold Instructions: Resume on 04/06/24. Hold while you finish the course of fluconazole for the oral and esophageal thrush Rx Instructions: TAKES 0600, 1200, & 1800 DAILY EVERY DAY. PER PT "TAKING TO HELP WITH WITHDRAW FROM SUBOXONE". ondansetron 4 mg tablet,disintegrating 4 mg PO Q8 PRN (Reason: NAUSEA/VOMITING) colchicine 0.6 mg capsule 0.6 mg PO DAILY PRN (Reason: joint pain) Qty: 30 0RF insulin glargine [Lantus Solostar U-100 Insulin] 100 unit/mL (3 mL) insulin pen 60 unit SUBCUT QAM quetiapine 100 mg tablet 200 mg PO HS Qty: 0 0RF prednisone 5 mg tablet 15 mg PO DAILY Qty: 90 2RF Rx Instructions: PER PT "IF NEEDED, MAY TAKE ADDITIONAL 5 MG FOR TROUBLE BREATHING". tramadol 50 mg tablet 50 - 100 mg PO Q8H PRN (Reason: pain) Qty: 20 0RF Rx Instructions: has taken in hospital without issue Held buprenorphine-naloxone 4-1 mg film 1 film sublingual DAILY Hold Instructions: Provider's Order: Dr. Gracia is prescribing 2 mg Discontinued cephalexin 500 mg capsule 500 mg PO TID 10 Days Qty: 30 0RF enoxaparin [Lovenox] 150 mg/mL Syringe 135 mg subcut Q24H Qty: 0 0RF Rx Instructions: PER PT "TAKING THE WHOLE SYRINGE". you will have to "waste" a small amount of the lovenox to give yourself the correct dose of lovenox. Your dose based on weight is 135mg. Only give yourself 0.9ml of the lovenox syringe. You will be "wasting" 0.1ml each time to you take the lovenox. Discharge Orders: Discharge Order (Routine); Ordered 11/24/24 Ordered By: Mine Ponce Admission Data Admit Date/Time: 11/19/24 21:21 Attending Provider: Robby Dickinson Admit Provider: Riya Mckenna Primary Care Provider: Radha Barboza Other Providers: Riya Mckenna Hospital Stay Data Consultations 11/19/24 20:52 ED Decision to Admit Stat Diagnostic Imagining Performed Chest X-Ray 11/19/24 17:00 EXAM: XR chest 1V portable CLINICAL HISTORY: Dyspnea. TECHNIQUE: An X-ray image of the chest is obtained in AP projection. COMPARISON: prior chest X-ray dated 10/25/2024. FINDINGS: Pulmonary Parenchyma: Still noted increased bronchovascular markings. Rather stable right basal reticulates, suggesting atelectatic lines. Slightly blunted right pleural recess, may denote minimal pleural effusion or thickening (new). No evidence of left pleural effusion or pleural thickening. Heart and Mediastinum: Heart size and shape are normal. No mediastinal widening or masses. No hilar or mediastinal lymphadenopathy. Bony Thorax: Bony thorax appears intact without fractures or deformities. Soft Tissues: Soft tissues overlying the chest wall are unremarkable. IMPRESSION: 1. Slightly blunted right pleural recess, may denote minimal pleural effusion or thickening (new). 2. Unchanged rest of the study. Electronically signed by Axel Arias 11-19-2024 7:25 PM Pending Results Patient Have Any Pending Studies at Discharge: No Discharge Instructions Given to Patient (Per Discharging Provider) Janae, You were admitted to the hospital with a COPD exacerbation. You have improved with steroids and breathing treatments. You are stable on room air and have been tapered down on steroids so that you can continue your usual dose of prednisone 15 mg daily starting tomorrow, 11/25. Continue your home inhalers as prescribed. You also have continued on the oral antibiotic for your leg wounds and these are improving. Continue Keflex 4 times daily through 11/27/24. It is important to keep the wounds on your leg clean and dry. Continue to follow-up with the wound care center. I have sent in a new prescription for Lovenox as you needed a new dose due to weight loss. I have discussed your Suboxone prescription with Dr. Gracia who is aware that your prescription needs to be refilled and we will send something into your pharmacy today. Please follow-up with your PCP in 1-2 weeks. Continue to follow a low-sodium diet (less than 2000 mg of sodium daily) and total liquid intake less than 2000 mL daily. Supervising Physician Co-Signing Physician Notes chart reviewed, case d/w S Rosario PARKER. as above Total Time Total Time Spent Total Time Spent (In Minutes): Greater than 30 minutes spent completing this discharge process including direct patient care, medication reconciliation, documentation, review of labs and images, and coordination of care. Coding Level of Care Code 94894 INP/OBS DISCH >30 MIN Diagnoses Acute exacerbation of chronic obstructive airways disease J44.1 Hypoxia R09.02 Current chronic use of systemic steroids Z79.52 Venous ulcers of both lower extremities I83.019; I83.029; L97.919; L97.929
[2024-11-24 15:23] VITALS: PULSE 102; RESP 20; O2SAT 93
--- NOTE | 2024-11-25 05:24 | Electrocardiogram Report ---
Test Reason : Blood Pressure : */* mmHG Vent. Rate : 104 BPM Atrial Rate : 104 BPM P-R Int : 142 ms QRS Dur : 62 ms QT Int : 338 ms P-R-T Axes : -21 -9 -22 degrees QTcB Int : 444 ms Sinus tachycardia Inferior infarct , age undetermined Anterior infarct (cited on or before 28-Jul-2023) Abnormal ECG When compared with ECG of 25-Oct-2024 17:02, Inverted T waves have replaced nonspecific T wave abnormality in Inferior leads Confirmed by Roel Willams ([id number]) on 11/25/2024 5:23:50 AM Referred By: REFERRED SELF Confirmed By: Roel Willams
== END 2024-11-24 17:45 | disposition home or self-care (01) | DRG 191 ==
LOC: ED 16:30 → SUATTDRO 21:21 → 2S 21:21 → 3N 11-22 22:00
DX: I87.2 Venous insufficiency (chronic) (peripheral); J44.89 Other specified chronic obstructive pulmonary disease; L97.928 Non-pressure chronic ulcer of unspecified part of left lower leg with other specified severity; G47.33 Obstructive sleep apnea (adult) (pediatric); Z91.041 Radiographic dye allergy status; D72.828 Other elevated white blood cell count; C90.00 Multiple myeloma not having achieved remission; Z79.52 Long term (current) use of systemic steroids; B95.61 Methicillin susceptible Staphylococcus aureus infection as the cause of diseases classified elsewhere; Z86.718 Personal history of other venous thrombosis and embolism; I50.32 Chronic diastolic (congestive) heart failure; Z88.5 Allergy status to narcotic agent; F41.9 Anxiety disorder, unspecified; Y92.019 Unspecified place in single-family (private) house as the place of occurrence of the external cause; F11.20 Opioid dependence, uncomplicated; J44.1 Chronic obstructive pulmonary disease with (acute) exacerbation; F17.210 Nicotine dependence, cigarettes, uncomplicated; L97.918 Non-pressure chronic ulcer of unspecified part of right lower leg with other specified severity; T38.0X5A Adverse effect of glucocorticoids and synthetic analogues, initial encounter; Z79.4 Long term (current) use of insulin; E11.9 Type 2 diabetes mellitus without complications; R09.02 Hypoxemia

== ENCOUNTER 2024-11-25 10:29 | Inpatient (IN) ==
[2024-11-25] MEDS: ALBUT/IPRATROP 3MG/0.5MG NEB 3 ML VIAL NEB STA (10:53)
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
[2024-11-25 11:23] LABS: Hematocrit (blood only) 49.6 % (37.0-47.0); Hemoglobin 16.1 g/dl (12.0-16.0); Mean Corpuscular Hemoglobin 26.8 pg (25.0-34.0); Mean Corpuscular Volume 82.7 fL (80.0-100.0); Platelet Count 305 K/uL (130-400); RDW Standard Deviation 54.8 fL (36.4-46.3); Red Blood Count 6.00 M/uL (4.20-5.40); White Blood Count 23.37 K/ul (4.8-10.8)
[2024-11-25 11:29] LABS: Immature Granulocytes # (auto) 0.58 K/uL (0.01-0.20); Immature Granulocytes % (auto) 2.5 %; Polychromasia 2+; Tear Drop Cells 1+; Toxic Granulation 2+
[2024-11-25 11:30] LABS: Alanine Aminotransferase 29.0 U/L (7-52); Alkaline Phosphatase 113.0 U/L (34-104); Anion Gap 12.0 (3-11); Bilirubin,Total 0.6 mg/dl (0.2-1.0); Blood Urea Nitrogen 42.0 mg/dl (6-23); Calcium 9.6 mg/dl (8.6-10.3); Carbon Dioxide 31.0 mmol/L (21-32); Chloride 91.0 mmol/L (98-107); Creatinine Clr Calc Pharmacy 49.2 ml/min; Glucose 190.0 mg/dl (70-99(Fasting)); Magnesium 1.9 mg/dl (1.7-2.4); Potassium 4.0 mmol/L (3.5-5.1); Sodium 134.0 mmol/L (136-145); Total Protein 7.4 gm/dl (6.0-8.3)
--- NOTE | 2024-11-25 11:30 | XRay Report ---
XR chest 1V portable CLINICAL HISTORY: shortness of breath COMPARISON STUDY: 11/19/2024 FINDINGS: Heart size and pulmonary vasculature are normal. No consolidation or pleural effusion. No p neumothorax. IMPRESSION: No acute findings. ACT 112: Negative or not required by law. Electronically signed by: Jas Lancaster M.D. 11/25/2024 11:29 AM
[2024-11-25 11:40] LABS: INR 1.0 (0.9-1.1); Partial Thromboplastin Time 24 Seconds (21-31); Prothrombin Time 11.0 Seconds (9.0-12.0)
[2024-11-25 11:46] LABS: Base Excess VBG 10.2 mEq/L; HCO3 VBG 35 mmol/L; Oxygen Saturation VBG < 60.0 %; PCO2 VBG 46 mmHg (38-50); PO2 VBG 25 mmHg; pH VBG 7.49 (7.36-7.41)
[2024-11-25] MEDS ORDERED: ONDANSETRON 4 MG OD TAB PO PRN (11:52)
[2024-11-25] MEDS ORDERED: LEVALBUTEROL TARTRATE 15 GM HFA.AER.AD INH PRN (11:52)
[2024-11-25] MEDS ORDERED: ACETAMINOPHEN 325 MG TAB PO PRN (11:58)
[2024-11-25] MEDS ORDERED: PHARMACY GLYCEMIC MGMT CONSULT PRN (11:58)
[2024-11-25] MEDS ORDERED: GLUCOSE 10 TAB/TUBE PO PRN (14:00)
[2024-11-25] MEDS ORDERED: GLUCAGON FOR INJ 1 MG VIAL SQ PRN (14:00)
[2024-11-25] MEDS ORDERED: GLUCOSE 40% GEL 15 GM TUBE PO PRN (14:00)
[2024-11-25] MEDS ORDERED: DEXTROSE 50% 50 ML SYRINGE IV PRN (14:00)
[2024-11-25] MEDS ORDERED: CARBOHYDRATES FOR HYPOGLYCEMIA PO PRN (14:00)
[2024-11-25] MEDS ORDERED: COLCHICINE 0.6 MG TAB PO PRN (14:42)
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
[2024-11-25] MEDS: ENOXAPARIN INJ 120 MG/0.8 ML SYR SQ SCH (17:46)
[2024-11-25] MEDS: INSULIN ASPART PER UNIT CHARGE SC SCH (17:53)
[2024-11-25 18:04] LABS: Appearance Urine Clear (Clear); Glucose Urine UA Negative (Negative)
[2024-11-25] MEDS: BUDESONIDE 0.5 MG/2 ML VIAL (PULMICORT) NEB SCH (19:38)
[2024-11-25] MEDS: FORMOTEROL 20 MCG/2 ML VIAL NEB SCH (19:38)
--- NOTE | 2024-11-25 20:24 | Electrocardiogram Report ---
Test Reason : Blood Pressure : */* mmHG Vent. Rate : 107 BPM Atrial Rate : 107 BPM P-R Int : 140 ms QRS Dur : 76 ms QT Int : 336 ms P-R-T Axes : 31 12 54 degrees QTcB Int : 448 ms Sinus tachycardia Possible Left atrial enlargement Possible Inferior infarct (cited on or before 16-Aug-2023) Abnormal ECG When compared with ECG of 19-Nov-2024 17:17, Criteria for Anterior infarct are no longer Present T wave inversion no longer evident in Inferior leads Confirmed by Roel Willams ([id number]) on 11/25/2024 8:24:11 PM Referred By: Confirmed By: Roel Willams
[2024-11-25] MEDS: CITALOPRAM 20 MG TAB PO SCH (21:15)
[2024-11-26] MEDS: INSULIN ASPART PER UNIT CHARGE SC SCH ×2 (00:35→20:27)
[2024-11-26 07:50] LABS: Hematocrit (blood only) 45.7 % (37.0-47.0); Hemoglobin 14.6 g/dl (12.0-16.0); Mean Corpuscular Hemoglobin 26.4 pg (25.0-34.0); Mean Corpuscular Volume 82.5 fL (80.0-100.0); Platelet Count 247 K/uL (130-400); RDW Standard Deviation 55.1 fL (36.4-46.3); Red Blood Count 5.54 M/uL (4.20-5.40); White Blood Count 18.31 K/ul (4.8-10.8)
[2024-11-26] MEDS: LANTUS PER UNIT CHARGE SC SCH ×2 (08:05→20:27)
[2024-11-26] MEDS: BUMETANIDE 1 MG TAB PO SCH (08:10)
[2024-11-26] MEDS: BUPRENORPHINE/NALOXONE 2/0.5MG TAB SL SCH (08:14)
[2024-11-26 08:48] LABS: Anion Gap 8 (3-11); Blood Urea Nitrogen 48 mg/dl (6-23); Calcium 9.3 mg/dl (8.6-10.3); Carbon Dioxide 32 mmol/L (21-32); Chloride 95 mmol/L (98-107); Creatinine Clr Calc Pharmacy 54.5 ml/min; Glucose 192 mg/dl (70-99(Fasting)); Sodium 135 mmol/L (136-145)
[2024-11-26] MEDS ORDERED: FLUTICASONE FUROATE 200MCG 14 PUFFS/INHALER INH SCH (09:00)
[2024-11-26] MEDS ORDERED: UMECLIDINIUM/VILANTEROL 62.5/25MCG 7 PUFFS/INHALER INH SCH (09:00)
[2024-11-26] MEDS ORDERED: NON-FORMULARY MEDICATION (Insulin Glargine [Lantus Solostar U-100 Insulin] 100 unit/mL (3 SQ SCH (09:00)
[2024-11-26] MEDS ORDERED: NON-FORMULARY MEDICATION (Fluticasone-Umeclidin-Vilanter [Trelegy Ellipta] 200-62.5-25 mcg INH SCH (09:00)
--- NOTE | 2024-11-26 09:42 | Hospitalist Progress Note ---
Date of Service November 26, 2024 Assessment & Plan (1) COPD exacerbation: Plan: Pt is return admission within 24hrs [facility] solu-medrol budesonide pulmonary consulted (2) DM II (diabetes mellitus, type II), controlled: Plan: [facility] pharmacy for glycemic managment (3) Anxiety: Plan: alprazolam (4) Heart failure with preserved ejection fraction: Plan: Bumex (5) Venous ulcers of both lower extremities: Plan: Wound care consult LE arterial duplex ordered (6) History of DVT (deep vein thrombosis): Plan: con't lovenox Admission and Anticipated Discharge Date Admission Date: November 25, 2024 Subjective Pt still feeling chest tightness. Review of Systems Review of Systems: CONST: Negative for fever, body aches and chills. HENT: Negative for neck pain/stiffness, headache, congestion, sore throat, swelling. EYES: Negative for discharge/pain or vision changes. RESP: Shortness of breath. CV: Negative chest pain, difficulty breathing, palpitations. ABD: Negative pain, nausea, vomiting. : Negative increase frequency, dysuria, blood in urine or stool. MUSC: Negative for muscle aches, edema. SKIN: Negative rash, lesions/sores. NEURO: Negative headache, dizziness, weakness. Physical Exam Physical Exam: GENERAL APPEARANCE NAD, activity normal for age, well developed/ well nourished, no cyanosis, pallor, or diaphoresis. EYES lids/conjunctiva normal. EARS/NOSE/THROAT Mucous membranes moist, nares normal, lips/teeth normal uvula midline without oral pharyngeal erythema, exudate or swelling TMs normal bilaterally. No lymphangitis/lymphedema. HEAD/NECK normocephalic atraumatic, no facial trauma, neck is supple. RESPIRATORY respiratory effort normal, speaks in full sentences, no tripod position, no accessory muscle use. Lungs clear to auscultation without rhonchi, wheezes, rales CARDIAC Regular rate and rhythm, no edema. ABDOMINAL Soft, ND/NT. No evidence of fluid wave. No pulsatile masses on exam, rebound tenderness, Wang sign or pain over Mcburney's point. MUSCLES/EXTREMITIES No abnormal range of motion, no swelling. SKIN Warm, pink and dry. No rashes, dermatoses, petechiae or lesions. NEUROLOGICAL Speech is clear and appropriate. Normal level of consciousness. Gait and coordination are normal. 5/5 strength in all extremities. PSYCH Normal mood and affect. Judgement/competence is appropriate Results & Data Results & Data Vital Signs (Past 12 Hours) Vital Signs Temp Pulse Pulse Resp BP Pulse Ox O2 Del Method 11/26/24 07:18 96 H 20 94 Room Air 11/26/24 07:11 36.6 C 95 H 18 116/75 96 Room Air 11/26/24 03:14 95 H 14 91 11/26/24 00:43 101 H 13 95 11/25/24 23:31 36.6 C 103 H 18 100/70 95 Room Air FiO2 11/26/24 07:18 11/26/24 07:11 11/26/24 03:14 21 11/26/24 00:43 21 11/25/24 23:31 PG Care Time/CCT Total # of Minutes Spent Total Time Spent with Patient: Total time spent is greater than 50% in coordination of care (as documented) at patient's floor/unit and/or counseling patient: Coding Level of Care Code 91197 SUB INP/OBS CARE 2/35MIN Diagnoses COPD exacerbation J44.1 DM II (diabetes mellitus, type II), controlled E11.9 Anxiety F41.9 Chronic heart failure with preserved ejection fraction I50.32 Heart failure chronicity: chronic Venous ulcers of both lower extremities I83.019; I83.029; L97.919; L97.929 History of DVT (deep vein thrombosis) Z86.718 (4) Heart failure with preserved ejection fraction Heart failure chronicity: chronic Qualified Code(s): I50.32 - Chronic diastolic (congestive) heart failure
--- NOTE | 2024-11-26 10:08 | Pulmonology Progress Note ---
Date of Service November 26, 2024 Assessment & Plan (1) Acute exacerbation of chronic obstructive pulmonary disease: (2) History of DVT (deep vein thrombosis): (3) Severe persistent asthma: (4) Asthma-COPD overlap syndrome: (5) ELEUTERIO (obstructive sleep apnea): Plan CT chest 07/14/2024 personally reviewed: Minimal dependent atelectasis bilateral lower lobes No significant mediastinal lymphadenopathy Spirometry 03/16/2024: Severe obstructive lung dysfunction FVC 1.60 L 56%, FEV1 1.04 L 46%, FEV1/FVC 64% 2D echo 07/28/2023: EF 60-65%, RV hypertrophy mild, normal systolic function --Acute exacerbation of asthma COPD overlap syndrome Approximately [id number] smoking history, still smoking approximately 3 cigarettes on a daily basis Respiratory BioFire negative for everything on 11/19/2024 Procalcitonin 0.18 On Trelegy 200 also on prednisone 15 mg 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 She has been referred to allergy and immunology Absolute eosinophil count 30 on 07/14/2024 --ELEUTERIO On BiPAP at home Continue with the same setting -- Chronic steroid dependence Taking prednisone 15 mg since at least mid August 2024 Plan: Continue with nebulized bronchodilators while in the hospital Decrease Solu-Medrol to 40 mg twice daily Procalcitonin negative Give doxycycline for COPD exacerbation for 5 days Please make note patient will always have upper airway wheezing is because of her effort and not coming from the lungs. Case was discussed with RN as well as primary team Please note the above document was generated using voice recognition software. It may contain grammatical, syntax or spelling errors.Any formal questions or concerns about the content, text or information contained within the body of this dictation should be directly addressed to the provider for clarification. Admission and Anticipated Discharge Date Admission Date: November 25, 2024 Subjective Patient seen and examined at bedside. No acute distress, no adverse events overnight States that she is feeling better compared to when she came to the ER The chest tightness and was improved Denies any significant chest congestion Bringing up clear phlegm No nausea or vomiting Has been diuresing well Fair appetite Review of Systems 2 Review of Systems: All systems reviewed & are unremarkable except as noted in Subjective Physical Exam 2 Physical Exam: Constitutional: No acute distress HEENT: EOMI, PERRLA, short thick neck Respiratory system: Decreased air entry bilaterally, no rhonchi, mild crackles bilateral lower lobes, upper airway wheezing CVS: S1-S2 positive, no murmurs or gallops Abdomen: Soft, nontender, nondistended, positive bowel sounds x4 Extremities: +2 pulses bilaterally radialis/ dorsalis pedis, no cyanosis, +1 pitting edema bilateral lower extremity Neuro: Awake alert oriented x3 Psych: Normal mood and affect G/U: No [place] Skin: no rashes, warm and dry Lymphatic: no cervical or axillary lymphadenopathy Results & Data Results & Data Vital Signs (Past 12 Hours) Vital Signs Temp Pulse Pulse Resp BP Pulse Ox O2 Del Method 11/26/24 07:18 96 H 20 94 Room Air 11/26/24 07:11 36.6 C 95 H 18 116/75 96 Room Air 11/26/24 03:14 95 H 14 91 11/26/24 00:43 101 H 13 95 11/25/24 23:31 36.6 C 103 H 18 100/70 95 Room Air FiO2 11/26/24 07:18 11/26/24 07:11 11/26/24 03:14 21 11/26/24 00:43 21 11/25/24 23:31 Laboratory Results 11/26/24 07:20 11/26/24 09:04 PG Care Time/CCT Total # of Minutes Spent Total Time Spent with Patient: Total time spent is greater than 50% in coordination of care (as documented) at patient's floor/unit and/or counseling patient: Coding Level of Care Code 77821 SUB INP/OBS CARE 2/35MIN Diagnoses Acute exacerbation of chronic obstructive pulmonary disease J44.1 History of DVT (deep vein thrombosis) Z86.718 Severe persistent asthma J45.50 Asthma-COPD overlap syndrome J44.89 ELEUTERIO (obstructive sleep apnea) G47.33
[2024-11-26] MEDS: DOXYCYCLINE HYCLATE 100 MG CAP PO SCH (10:52)
[2024-11-27 06:38] LABS: Hematocrit (blood only) 43.2 % (37.0-47.0); Hemoglobin 14.2 g/dl (12.0-16.0); Mean Corpuscular Hemoglobin 26.9 pg (25.0-34.0); Mean Corpuscular Volume 82.0 fL (80.0-100.0); Platelet Count 264 K/uL (130-400); RDW Standard Deviation 53.9 fL (36.4-46.3); Red Blood Count 5.27 M/uL (4.20-5.40); White Blood Count 26.46 K/ul (4.8-10.8)
[2024-11-27] MEDS: ALBUT/IPRATROP 3MG/0.5MG NEB 3 ML VIAL NEB PRN (07:04)
[2024-11-27 07:13] LABS: Anion Gap 13.0 (3-11); Blood Urea Nitrogen 49.0 mg/dl (6-23); Calcium 9.2 mg/dl (8.6-10.3); Carbon Dioxide 27.0 mmol/L (21-32); Chloride 94.0 mmol/L (98-107); Creatinine Clr Calc Pharmacy 61.8 ml/min; Glucose 235.0 mg/dl (70-99(Fasting)); Potassium 3.5 mmol/L (3.5-5.1); Sodium 134.0 mmol/L (136-145)
--- NOTE | 2024-11-27 08:43 | Hospitalist Progress Note ---
Date of Service November 27, 2024 Assessment & Plan (1) COPD exacerbation: Plan: Pt is return admission within 24hrs [facility] solu-medrol budesonide perforomist pulmonary consult appreciated (2) DM II (diabetes mellitus, type II), controlled: Plan: [facility] pharmacy for glycemic managment (3) Anxiety: Plan: alprazolam (4) Heart failure with preserved ejection fraction: Plan: Bumex (5) Venous ulcers of both lower extremities: Plan: Wound care consult (6) History of DVT (deep vein thrombosis): Plan: con't lovenox Plan Pt is readmission, D/C home when breathing improves, plan for possibly 11/28 Admission and Anticipated Discharge Date Admission Date: November 25, 2024 Subjective No events overnight. Pt states she still feels wheezing and isn't ready to go h ome. Review of Systems Review of Systems: CONST: Negative for fever, body aches and chills. HENT: Negative for neck pain/stiffness, headache, congestion, sore throat, swelling. EYES: Negative for discharge/pain or vision changes. RESP: Shortness of breath. CV: Negative chest pain, difficulty breathing, palpitations. ABD: Negative pain, nausea, vomiting. : Negative increase frequency, dysuria, blood in urine or stool. MUSC: Negative for muscle aches, edema. SKIN: Negative rash, lesions/sores. NEURO: Negative headache, dizziness, weakness. Physical Exam Physical Exam: GENERAL APPEARANCE NAD, activity normal for age, well developed/ well nourished, no cyanosis, pallor, or diaphoresis. EYES lids/conjunctiva normal. EARS/NOSE/THROAT Mucous membranes moist, nares normal, lips/teeth normal uvula midline without oral pharyngeal erythema, exudate or swelling TMs normal bilaterally. No lymphangitis/lymphedema. HEAD/NECK normocephalic atraumatic, no facial trauma, neck is supple. RESPIRATORY respiratory effort normal, speaks in full sentences, no tripod position, no accessory muscle use. Lungs clear to auscultation without rhonchi, wheezes, rales CARDIAC Regular rate and rhythm, no edema. ABDOMINAL Soft, ND/NT. No evidence of fluid wave. No pulsatile masses on exam, rebound tenderness, Wang sign or pain over Mcburney's point. MUSCLES/EXTREMITIES No abnormal range of motion, no swelling. SKIN Warm, pink and dry. No rashes, dermatoses, petechiae or lesions. NEUROLOGICAL Speech is clear and appropriate. Normal level of consciousness. Gait and coordination are normal. 5/5 strength in all extremities. PSYCH Normal mood and affect. Judgement/competence is appropriate Results & Data Results & Data Vital Signs (Past 12 Hours) Vital Signs Temp Pulse Pulse Resp BP Pulse Ox O2 Del Method 11/27/24 07:25 36.5 C 103 H 16 123/85 97 Room Air 11/27/24 07:04 66 18 95 Room Air 11/27/24 02:44 87 12 92 11/26/24 23:52 36.7 C 100 H 18 122/83 96 Room Air 11/26/24 23:48 89 14 92 11/26/24 20:57 Room Air FiO2 11/27/24 07:25 11/27/24 07:04 11/27/24 02:44 21 11/26/24 23:52 11/26/24 23:48 21 11/26/24 20:57 PG Care Time/CCT Total # of Minutes Spent Total Time Spent with Patient: Total time spent is greater than 50% in coordination of care (as documented) at patient's floor/unit and/or counseling patient: Coding Level of Care Code 12664 SUB INP/OBS CARE 235MIN Diagnoses COPD exacerbation J44.1 DM II (diabetes mellitus, type II), controlled E11.9 Anxiety F41.9 Chronic heart failure with preserved ejection fraction I50.32 Heart failure chronicity: chronic Venous ulcers of both lower extremities I83.019; I83.029; L97.919; L97.929 History of DVT (deep vein thrombosis) Z86.718 (4) Heart failure with preserved ejection fraction Heart failure chronicity: chronic Qualified Code(s): I50.32 - Chronic diastolic (congestive) heart failure
[2024-11-27] MEDS ORDERED: LANTUS PER UNIT CHARGE SC SCH (09:00)
--- NOTE | 2024-11-27 10:07 | Pulmonology Progress Note ---
Date of Service November 27, 2024 Assessment & Plan (1) Acute exacerbation of chronic obstructive pulmonary disease: (2) History of DVT (deep vein thrombosis): (3) Severe persistent asthma: (4) Asthma-COPD overlap syndrome: (5) ELEUTERIO (obstructive sleep apnea): Plan CT chest 07/14/2024 personally reviewed: Minimal dependent atelectasis bilateral lower lobes No significant mediastinal lymphadenopathy Spirometry 03/16/2024: Severe obstructive lung dysfunction FVC 1.60 L 56%, FEV1 1.04 L 46%, FEV1/FVC 64% 2D echo 07/28/2023: EF 60-65%, RV hypertrophy mild, normal systolic function --Acute exacerbation of asthma COPD overlap syndrome Approximately 67-azua-[id number] smoking history, still smoking approximately 3 cigarettes on a daily basis Respiratory BioFire negative for everything on 11/19/2024 Procalcitonin 0.18 On Trelegy 200 also on prednisone 15 mg 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 She has been referred to allergy and immunology Absolute eosinophil count 30 on 07/14/2024 --ELEUTERIO On BiPAP at home Continue with the same setting -- Chronic steroid dependence Taking prednisone 15 mg since at least mid August 2024 Plan: Continue with nebulized bronchodilators while in the hospital. Patient prefers nebulized bronchodilators even at home. Recommend to discharge the patient on formoterol/budesonide nebulized along with Yupelri nebulized in place of Trelegy 200 which she is on. Decrease Solu-Medrol to 40 mg daily Procalcitonin negative Complete doxycycline for COPD exacerbation for total of 5 days Please make note patient will always have upper airway wheezing is because of her effort and not coming from the lungs. Case was discussed with RN as well as primary team Please note the above document was generated using voice recognition software. It may contain grammatical, syntax or spelling errors.Any formal questions or concerns about the content, text or information contained within the body of this dictation should be directly addressed to the provider for clarification. Admission and Anticipated Discharge Date Admission Date: November 25, 2024 Subjective Patient seen and examined at bedside. No acute distress, no adverse events overnight Patient says she is feeling better when it comes to breathing She has been having issues with her legs where it turned purple overnight on the right side She has had that issues in the past as well No nausea vomiting Fair appetite Review of Systems 2 Review of Systems: All systems reviewed & are unremarkable except as noted in Subjective Physical Exam 2 Physical Exam: Constitutional: No acute distress HEENT: EOMI, PERRLA, short thick neck Respiratory system: Decreased air entry bilaterally, no rhonchi, mild crackles bilateral lower lobes, upper airway wheezing, better than before CVS: S1-S2 positive, no murmurs or gallops Abdomen: Soft, nontender, nondistended, positive bowel sounds x4 Extremities: +2 pulses bilaterally radialis/ dorsalis pedis, no cyanosis, +1 pitting edema bilateral lower extremity Neuro: Awake alert oriented x3 Psych: Normal mood and affect G/U: No [place] Skin: no rashes, warm and dry Lymphatic: no cervical or axillary lymphadenopathy Results & Data Results & Data Vital Signs (Past 12 Hours) Vital Signs Temp Pulse Pulse Resp BP Pulse Ox O2 Del Method 11/27/24 07:25 36.5 C 103 H 16 123/85 97 Room Air 11/27/24 07:04 66 18 95 Room Air 11/27/24 02:44 87 12 92 11/26/24 23:52 36.7 C 100 H 18 122/83 96 Room Air 11/26/24 23:48 89 14 92 FiO2 11/27/24 07:25 11/27/24 07:04 11/27/24 02:44 21 11/26/24 23:52 11/26/24 23:48 21 Laboratory Results 11/27/24 06:04 11/27/24 06:04 PG Care Time/CCT Total # of Minutes Spent Total Time Spent with Patient: Total time spent is greater than 50% in coordination of care (as documented) at patient's floor/unit and/or counseling patient: Coding Level of Care Code 57124 SUB INP/OBS CARE 2/35MIN Diagnoses Acute exacerbation of chronic obstructive pulmonary disease J44.1 History of DVT (deep vein thrombosis) Z86.718 Severe persistent asthma J45.50 Asthma-COPD overlap syndrome J44.89 ELEUTERIO (obstructive sleep apnea) G47.33
[2024-11-27] MEDS: LANTUS PER UNIT CHARGE SC ONE (11:56)
--- NOTE | 2024-11-27 14:25 | Pharmacy Report ---
Pharmacy Glycemic Short Note 2 - Date of Service November 27, 2024 - Glycemic Short BSG Results (Last 24 hours): 11/26/24 11/26/24 11/27/24 16:25 20:25 06:04 Glucose 235 H POC Glucose 154 H 128 H 11/27/24 11/27/24 07:44 11:23 Glucose POC Glucose 272 H 281 H OUTPATIENT ANTIDIABETIC REGIMEN: * Lantus 50 units SQ daily * Novolog SSI A1c = 9% ASSESSMENT: * 64 y/o female with PMH of COPD, DM, anxiety, h/o DVT, CHF, who presents on 11/25/24 with worsening SOB.. Patient discharged from [facility] on 11/24/24. She is well known to the glycemic consult service. Insulin doses will be based on recent admission data taking into account administration of IV steroids. * Fasting BSG of 272 mg/dL this am. Additional 10 units of Lantus ordered. * IV steroids being tapered to once daily starting today. With this in mind, I loosened CF (12->15) which lead to hyperglycemia. Will resume CF of 12 with anticipation of this needing adjusting on 11/28. PLAN FOR INPATIENT GLYCEMIC CONTROL: * Basal insulin * Lantus 60 units SQ this AM + 10 units at lunch for total 70 units today * 11/28: resume Lantus 40-60 units SQ qAM per BSG scale * Bolus insulin * NovoLog per scale ACHS or Q6hrs while NPO * Goal Range: Low 110 mg/dL - High 160 mg/dL * Correction Factor: 12 mg/dL/unit * Nutritional / Prandial insulin per carb ratio of 1 unit per 3 grams CHO consumed
[2024-11-27] MEDS: ONDANSETRON INJ 2 MG/ML 2 ML VIAL IV PRN (17:20)
[2024-11-27] MEDS: INSULIN ASPART PER UNIT CHARGE SC SCH (23:40)
[2024-11-28 06:12] LABS: Hematocrit (blood only) 41.6 % (37.0-47.0); Hemoglobin 13.7 g/dl (12.0-16.0); Mean Corpuscular Hemoglobin 27.1 pg (25.0-34.0); Mean Corpuscular Volume 82.4 fL (80.0-100.0); Platelet Count 246 K/uL (130-400); RDW Standard Deviation 54.2 fL (36.4-46.3); Red Blood Count 5.05 M/uL (4.20-5.40); White Blood Count 21.09 K/ul (4.8-10.8)
[2024-11-28 06:55] LABS: Anion Gap 10.0 (3-11); Blood Urea Nitrogen 42.0 mg/dl (6-23); Calcium 8.7 mg/dl (8.6-10.3); Carbon Dioxide 29.0 mmol/L (21-32); Chloride 96.0 mmol/L (98-107); Creatinine Clr Calc Pharmacy 67.8 ml/min; Glucose 128.0 mg/dl (70-99(Fasting)); Potassium 3.0 mmol/L (3.5-5.1); Sodium 135.0 mmol/L (136-145)
--- NOTE | 2024-11-28 07:33 | Pulmonology Progress Note ---
Date of Service November 28, 2024 Assessment & Plan (1) Acute exacerbation of chronic obstructive pulmonary disease: (2) History of DVT (deep vein thrombosis): (3) Severe persistent asthma: (4) Asthma-COPD overlap syndrome: (5) ELEUTERIO (obstructive sleep apnea): Plan CT chest 07/14/2024 personally reviewed: Minimal dependent atelectasis bilateral lower lobes No significant mediastinal lymphadenopathy Spirometry 03/16/2024: Severe obstructive lung dysfunction FVC 1.60 L 56%, FEV1 1.04 L 46%, FEV1/FVC 64% 2D echo 07/28/2023: EF 60-65%, RV hypertrophy mild, normal systolic function --Acute exacerbation of asthma COPD overlap syndrome Approximately 87-[id number]-[id number] smoking history, still smoking approximately 3 cigarettes on a daily basis Respiratory BioFire negative for everything on 11/19/2024 Procalcitonin 0.18 On Trelegy 200 also on prednisone 15 mg 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 She has been referred to allergy and immunology Absolute eosinophil count 30 on 07/14/2024 --ELEUTERIO On BiPAP at home Continue with the same setting -- Chronic steroid dependence Taking prednisone 15 mg since at least mid August 2024 Plan: Continue with nebulized bronchodilators while in the hospital. Patient prefers nebulized bronchodilators even at home. Recommend to discharge the patient on formoterol/budesonide nebulized along with Yupelri nebulized in place of Trelegy 200 which she is on. Change Solu-Medrol to prednisone 40 mg for 3 days followed by 20 for 3 and then go to 15 mg that she takes at home Procalcitonin negative Complete doxycycline for COPD exacerbation for total of 5 days Please make note patient will always have upper airway wheezing is because of her effort and not coming from the lungs. Case was discussed with RN as well as primary team Please note the above document was generated using voice recognition software. It may contain grammatical, syntax or spelling errors.Any formal questions or concerns about the content, text or information contained within the body of this dictation should be directly addressed to the provider for clarification. Admission and Anticipated Discharge Date Admission Date: November 25, 2024 Subjective Patient seen and examined at bedside. No acute distress, no adverse events overnight Has been complaining of knee pain which is chronic for the patient. Shortness of breath is improved Did use BiPAP overnight No nausea or vomiting Fair appetite Review of Systems 2 Review of Systems: All systems reviewed & are unremarkable except as noted in Subjective Physical Exam 2 Physical Exam: Constitutional: No acute distress HEENT: EOMI, PERRLA, short thick neck Respiratory system: Decreased air entry bilaterally, no rhonchi, mild crackles bilateral lower lobes, no wheeze CVS: S1-S2 positive, no murmurs or gallops Abdomen: Soft, nontender, nondistended, positive bowel sounds x4 Extremities: +2 pulses bilaterally radialis/ dorsalis pedis, no cyanosis, +1 pitting edema bilateral lower extremity Neuro: Awake alert oriented x3 Psych: Normal mood and affect G/U: No [place] Skin: no rashes, warm and dry Lymphatic: no cervical or axillary lymphadenopathy Results & Data Results & Data Vital Signs (Past 12 Hours) Vital Signs Temp Pulse Pulse Resp BP Pulse Ox O2 Del Method 11/28/24 07:01 103 H 16 98 Room Air 11/27/24 23:55 81 15 92 11/27/24 22:46 36.5 C 102 H 15 102/74 96 Room Air 11/27/24 21:23 Room Air 11/27/24 19:37 109 H 22 99 Room Air FiO2 11/28/24 07:01 11/27/24 23:55 21 11/27/24 22:46 11/27/24 21:23 11/27/24 19:37 Laboratory Results 11/28/24 05:57 11/28/24 05:57 PG Care Time/CCT Total # of Minutes Spent Total Time Spent with Patient: Total time spent is greater than 50% in coordination of care (as documented) at patient's floor/unit and/or counseling patient: Coding Level of Care Code 64994 SUB INP/OBS CARE 2/35MIN Diagnoses Acute exacerbation of chronic obstructive pulmonary disease J44.1 History of DVT (deep vein thrombosis) Z86.718 Severe persistent asthma J45.50 Asthma-COPD overlap syndrome J44.89 ELEUTERIO (obstructive sleep apnea) G47.33
[2024-11-28] MEDS: POTASSIUM CHLORIDE / WTR 10 MEQ/100 ML PLCT IV SCH (08:34)
--- NOTE | 2024-11-28 09:28 | Hospitalist Progress Note ---
Date of Service November 28, 2024 Assessment & Plan (1) COPD exacerbation: Plan: Pt is return admission within 24hrs chapo solu-medrol budesonide perforomist pulmonary consult appreciated (2) DM II (diabetes mellitus, type II), controlled: Plan: [facility] pharmacy for glycemic managment (3) Anxiety: Plan: alprazolam (4) Heart failure with preserved ejection fraction: Plan: Bumex (5) Venous ulcers of both lower extremities: Plan: Wound care consult (6) History of DVT (deep vein thrombosis): Plan: con't lovenox Plan Pt is readmission, D/C home when breathing improves, plan for possibly 11/29 Admission and Anticipated Discharge Date Admission Date: November 25, 2024 Subjective No events overnight Review of Systems Review of Systems: CONST: Negative for fever, body aches and chills. HENT: Negative for neck pain/stiffness, headache, congestion, sore throat, swel ling. EYES: Negative for discharge/pain or vision changes. RESP: Shortness of breath. CV: Negative chest pain, difficulty breathing, palpitations. ABD: Negative pain, nausea, vomiting. : Negative increase frequency, dysuria, blood in urine or stool. MUSC: Negative for muscle aches, edema. SKIN: Negative rash, lesions/sores. NEURO: Negative headache, dizziness, weakness. Physical Exam Physical Exam: GENERAL APPEARANCE NAD, activity normal for age, well developed/ well nourished, no cyanosis, pallor, or diaphoresis. EYES lids/conjunctiva normal. EARS/NOSE/THROAT Mucous membranes moist, nares normal, lips/teeth normal uvula midline without oral pharyngeal erythema, exudate or swelling TMs normal bilaterally. No lymphangitis/lymphedema. HEAD/NECK normocephalic atraumatic, no facial trauma, neck is supple. RESPIRATORY respiratory effort normal, speaks in full sentences, no tripod position, no accessory muscle use. Lungs clear to auscultation without rhonchi, wheezes, rales CARDIAC Regular rate and rhythm, no edema. ABDOMINAL Soft, ND/NT. No evidence of fluid wave. No pulsatile masses on exam, rebound tenderness, Wang sign or pain over Mcburney's point. MUSCLES/EXTREMITIES No abnormal range of motion, no swelling. SKIN Warm, pink and dry. No rashes, dermatoses, petechiae or lesions. NEUROLOGICAL Speech is clear and appropriate. Normal level of consciousness. Gait and coordination are normal. 5/5 strength in all extremities. PSYCH Normal mood and affect. Judgement/competence is appropriate Results & Data Results & Data Vital Signs (Past 12 Hours) Vital Signs Temp Pulse Pulse Pulse Resp BP Pulse Ox 11/28/24 08:03 11/28/24 07:48 36.4 C L 90 17 132/84 98 11/28/24 07:01 103 H 16 98 11/27/24 23:55 81 15 92 11/27/24 22:46 36.5 C 102 H 15 102/74 96 O2 Del Method FiO2 11/28/24 08:03 Room Air 11/28/24 07:48 Room Air 11/28/24 07:01 Room Air 11/27/24 23:55 21 11/27/24 22:46 Room Air PG Care Time/CCT Total # of Minutes Spent Total Time Spent with Patient: Total time spent is greater than 50% in coordination of care (as documented) at patient's floor/unit and/or counseling patient: Coding Level of Care Code 59764 SUB INP/OBS CARE 2/35MIN Diagnoses COPD exacerbation J44.1 DM II (diabetes mellitus, type II), controlled E11.9 Anxiety F41.9 Chronic heart failure with preserved ejection fraction I50.32 Heart failure chronicity: chronic Venous ulcers of both lower extremities I83.019; I83.029; L97.919; L97.929 History of DVT (deep vein thrombosis) Z86.718 (4) Heart failure with preserved ejection fraction Heart failure chronicity: chronic Qualified Code(s): I50.32 - Chronic diastolic (congestive) heart failure
[2024-11-28] MEDS: POTASSIUM CHLORIDE CRTAB 20 MEQ TABCR PO STA (09:30)
--- NOTE | 2024-11-28 14:19 | Pharmacy Report ---
Pharmacy Glycemic Short Note 2 - Date of Service November 28, 2024 - Glycemic Short BSG Results (Last 24 hours): 11/27/24 11/27/24 11/27/24 16:24 20:25 23:35 Glucose POC Glucose 173 H 138 H 116 H 11/28/24 11/28/24 11/28/24 01:56 05:57 07:23 Glucose 128 H POC Glucose 85 90 11/28/24 11/28/24 10:48 11:45 Glucose POC Glucose 151 H 87 OUTPATIENT ANTIDIABETIC REGIMEN: * Lantus 50 units SQ daily * Novolog SSI A1c = 9% ASSESSMENT: 11/28: * Patient received total of 147 units of insulin yesterday, of which 70 units were basal * Fasting BSG 90 mg/dL - will get 40 units of basal based upon scale this AM. This is reasonable as fasting BSG trending down significantly from yesterday * Loosened CF/CR this AM with breakfast, will loosen further later today PLAN FOR INPATIENT GLYCEMIC CONTROL: * Basal insulin * Lantus 40-60 units once daily * Bolus insulin * NovoLog per scale ACHS or Q6hrs while NPO * Goal Range: Low 110 mg/dL - High 160 mg/dL * Correction Factor: 20 mg/dL/unit * Nutritional / Prandial insulin per carb ratio of 1 unit per 6 grams CHO consumed
--- NOTE | 2024-11-29 07:44 | Pulmonology Progress Note ---
Date of Service November 29, 2024 Assessment & Plan (1) Acute exacerbation of chronic obstructive pulmonary disease: (2) History of DVT (deep vein thrombosis): (3) Severe persistent asthma: (4) Asthma-COPD overlap syndrome: (5) ELEUTERIO (obstructive sleep apnea): Plan CT chest 07/14/2024 personally reviewed: Minimal dependent atelectasis bilateral lower lobes No significant mediastinal lymphadenopathy Spirometry 03/16/2024: Severe obstructive lung dysfunction FVC 1.60 L 56%, FEV1 1.04 L 46%, FEV1/FVC 64% 2D echo 07/28/2023: EF 60-65%, RV hypertrophy mild, normal systolic function --Acute exacerbation of asthma COPD overlap syndrome Approximately [id number] smoking history, still smoking approximately 3 cigarettes on a daily basis Respiratory BioFire negative for everything on 11/19/2024 Procalcitonin 0.18 On Trelegy 200 also on prednisone 15 mg 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 She has been referred to allergy and immunology Absolute eosinophil count 30 on 07/14/2024 --ELEUTERIO On BiPAP at home Continue with the same setting -- Chronic steroid dependence Taking prednisone 15 mg since at least mid August 2024 Plan: Recommend to discharge the patient on formoterol/budesonide nebulized along with Yupelri nebulized in place of Trelegy 200 which she is on. Office staff has been made aware regarding the same to see if the above nebulized medications will be covered Continue with prednisone 40 mg for 3 days followed by 20 for 3 and then go to 15 mg that she takes at home Procalcitonin negative Complete doxycycline for COPD exacerbation for total of 5 days Please make note patient will always have upper airway wheezing is because of her effort and not coming from the lungs. Case was discussed with RN as well as primary team No further recommendation from pulmonary perspective, will sign off Please call directly with any questions Please note the above document was generated using voice recognition software. It may contain grammatical, syntax or spelling errors.Any formal questions or concerns about the content, text or information contained within the body of this dictation should be directly addressed to the provider for clarification. Admission and Anticipated Discharge Date Admission Date: November 25, 2024 Subjective Patient seen and examined at bedside. No acute distress, no adverse events overnight Her knee pain is better controlled today. Denies any nausea or vomiting Has been afebrile Breathing has improved Review of Systems 2 Review of Systems: All systems reviewed & are unremarkable except as noted in Subjective Physical Exam 2 Physical Exam: Constitutional: No acute distress HEENT: EOMI, PERRLA, short thick neck Respiratory system: Decreased air entry bilaterally, no rhonchi, mild crackles bilateral lower lobes, no wheeze CVS: S1-S2 positive, no murmurs or gallops Abdomen: Soft, nontender, nondistended, positive bowel sounds x4 Extremities: +2 pulses bilaterally radialis/ dorsalis pedis, no cyanosis, +1 pitting edema bilateral lower extremity Neuro: Awake alert oriented x3 Psych: Normal mood and affect G/U: No [place] Skin: no rashes, warm and dry Lymphatic: no cervical or axillary lymphadenopathy Results & Data Results & Data Vital Signs (Past 12 Hours) Vital Signs Temp Pulse Pulse Pulse Resp BP Pulse Ox 11/29/24 07:16 110 H 20 98 11/29/24 03:20 101 H 11 L 94 11/29/24 00:30 102 H 15 99 11/29/24 00:24 102 H 16 98 11/28/24 23:32 36.6 C 95 H 16 128/76 98 11/28/24 21:00 O2 Del Method 11/29/24 07:16 Room Air 11/29/24 03:20 11/29/24 00:30 11/29/24 00:24 Room Air 11/28/24 23:32 Room Air 11/28/24 21:00 Room Air Laboratory Results 11/28/24 05:57 11/28/24 05:57 PG Care Time/CCT Total # of Minutes Spent Total Time Spent with Patient: Total time spent is greater than 50% in coordination of care (as documented) at patient's floor/unit and/or counseling patient: Coding Level of Care Code 37832 SUB INP/OBS CARE 2/35MIN Diagnoses Acute exacerbation of chronic obstructive pulmonary disease J44.1 History of DVT (deep vein thrombosis) Z86.718 Severe persistent asthma J45.50 Asthma-COPD overlap syndrome J44.89 ELEUTERIO (obstructive sleep apnea) G47.33
[2024-11-29 08:02] LABS: Hematocrit (blood only) 47.9 % (37.0-47.0); Hemoglobin 14.8 g/dl (12.0-16.0); Mean Corpuscular Hemoglobin 26.1 pg (25.0-34.0); Mean Corpuscular Volume 84.3 fL (80.0-100.0); Platelet Count 284 K/uL (130-400); RDW Standard Deviation 56.8 fL (36.4-46.3); Red Blood Count 5.68 M/uL (4.20-5.40); White Blood Count 22.15 K/ul (4.8-10.8)
[2024-11-29 08:17] LABS: Anion Gap 8.0 (3-11); Blood Urea Nitrogen 36.0 mg/dl (6-23); Calcium 9.1 mg/dl (8.6-10.3); Carbon Dioxide 34.0 mmol/L (21-32); Chloride 96.0 mmol/L (98-107); Creatinine Clr Calc Pharmacy 61.8 ml/min; Glucose 135.0 mg/dl (70-99(Fasting)); Potassium 3.4 mmol/L (3.5-5.1); Sodium 138.0 mmol/L (136-145)
[2024-11-29] MEDS: predniSONE 20 MG TAB PO SCH (08:34)
--- NOTE | 2024-11-29 10:46 | Hospitalist Progress Note ---
Date of Service November 29, 2024 Assessment & Plan (1) COPD exacerbation: Plan: Pt is return admission within 24hrs duonebs prednisone with taper planned budesonide perforomist pulmonary consult appreciated (2) DM II (diabetes mellitus, type II), controlled: Plan: [facility] pharmacy for glycemic managment (3) Anxiety: Plan: alprazolam (4) Heart failure with preserved ejection fraction: Plan: Bumex (5) Venous ulcers of both lower extremities: Plan: Wound care consult (6) History of DVT (deep vein thrombosis): Plan: con't lovenox Plan Pt is readmission, D/C home when breathing improves, plan for possibly 11/30 Admission and Anticipated Discharge Date Admission Date: November 25, 2024 Subjective No events overnight. Pt states her breathing has improved, but still is does not feel comfortable going home. Review of Systems Review of Systems: CONST: Negative for fever, body aches and chills. HENT: Negative for neck pain/stiffness, headache, congestion, sore throat, swelling. EYES: Negative for discharge/pain or vision changes. RESP: Shortness of breath. CV: Negative chest pain, difficulty breathing, palpitations. ABD: Negative pain, nausea, vomiting. : Negative increase frequency, dysuria, blood in urine or stool. MUSC: Negative for muscle aches, edema. SKIN: Negative rash, lesions/sores. NEURO: Negative headache, dizziness, weakness. Physical Exam Physical Exam: GENERAL APPEARANCE NAD, activity normal for age, well developed/ well nourished, no cyanosis, pallor, or diaphoresis. EYES lids/conjunctiva normal. EARS/NOSE/THROAT Mucous membranes moist, nares normal, lips/teeth normal uvula midline without oral pharyngeal erythema, exudate or swelling TMs normal bilaterally. No lymphangitis/lymphedema. HEAD/NECK normocephalic atraumatic, no facial trauma, neck is supple. RESPIRATORY respiratory effort normal, speaks in full sentences, no tripod position, no accessory muscle use. Lungs clear to auscultation without rhonchi, wheezes, rales CARDIAC Regular rate and rhythm, no edema. ABDOMINAL Soft, ND/NT. No evidence of fluid wave. No pulsatile masses on exam, rebound tenderness, Wang sign or pain over Mcburney's point. MUSCLES/EXTREMITIES No abnormal range of motion, no swelling. SKIN Warm, pink and dry. No rashes, dermatoses, petechiae or lesions. NEUROLOGICAL Speech is clear and appropriate. Normal level of consciousness. Gait and coordination are normal. 5/5 strength in all extremities. PSYCH Normal mood and affect. Judgement/competence is appropriate Results & Data Results & Data Vital Signs (Past 12 Hours) Vital Signs Temp Pulse Pulse Pulse Resp BP Pulse Ox 11/29/24 08:06 11/29/24 07:35 36.5 C 103 H 20 154/92 H 97 11/29/24 07:16 110 H 20 98 11/29/24 03:20 101 H 11 L 94 11/29/24 00:30 102 H 15 99 11/29/24 00:24 102 H 16 98 11/28/24 23:32 36.6 C 95 H 16 128/76 98 O2 Del Method 11/29/24 08:06 Room Air 11/29/24 07:35 Room Air 11/29/24 07:16 Room Air 11/29/24 03:20 11/29/24 00:30 11/29/24 00:24 Room Air 11/28/24 23:32 Room Air PG Care Time/CCT Total # of Minutes Spent Total Time Spent with Patient: Total time spent is greater than 50% in coordination of care (as documented) at patient's floor/unit and/or counseling patient: Coding Level of Care Code 57967 SUB INP/OBS CARE 235MIN Diagnoses COPD exacerbation J44.1 DM II (diabetes mellitus, type II), controlled E11.9 Anxiety F41.9 Chronic heart failure with preserved ejection fraction I50.32 Heart failure chronicity: chronic Venous ulcers of both lower extremities I83.019; I83.029; L97.919; L97.929 History of DVT (deep vein thrombosis) Z86.718 (4) Heart failure with preserved ejection fraction Heart failure chronicity: chronic Qualified Code(s): I50.32 - Chronic diastolic (congestive) heart failure
[2024-11-29] MEDS: POTASSIUM CHLORIDE CRTAB 20 MEQ TABCR PO STA (11:09)
[2024-11-29] MEDS: LEVALBUTEROL TARTRATE 15 GM HFA.AER.AD INH SCH (12:14)
[2024-11-30] MEDS ORDERED: LEVALBUTEROL TARTRATE 15 GM HFA.AER.AD INH PRN (11:07)
[2024-11-30] MEDS: ALBUT/IPRATROP 3MG/0.5MG NEB 3 ML VIAL NEB SCH (13:33)
[2024-11-30 23:38] VITALS: TEMP 97.7
[2024-12-01 07:40] VITALS: BP 108/76; RESP 18
--- NOTE | 2024-12-01 09:56 | Discharge Summary ---
Discharge Summary Date of Service December 01, 2024 Principal Dx & Hospital Course #1 = Principal Diagnosis (1) COPD exacerbation: Pt is return admission within 24hrs duonebs prednisone with taper planned budesonide perforomist pulmonary consult appreciated (2) DM II (diabetes mellitus, type II), controlled: [facility] pharmacy for glycemic managment (3) Anxiety: alprazolam (4) Heart failure with preserved ejection fraction: Bumex (5) Venous ulcers of both lower extremities: Wound care consult (6) History of DVT (deep vein thrombosis): con't lovenox Plan Pt is readmission, D/C home when breathing improves, plan for possibly 11/30 Admission HPI Per Admitting Provider Pt is a 64 y/o female with pmh of COPD, DM, anxiety, h/o DVT on lovenox, CHF, who presents with worsening SOB over the past day. Pt was discharged yesterday after being treated for COPD exacerbation at [facility]. She states that she feel like her "chest is tight and squeezing". In the ER patient had CXR which showed no acute pulmonary disease. She was given nebulizers in the ER and felt some improvement in symptoms. She was maintaining her O2 sats on RA. Her EKG showed no ST-T changes. Pt is being admitted for further treatment of COPD exacerbation including nebs, solu-medrol, and pulmonology consult. Discharge Exam GENERAL APPEARANCE NAD, activity normal for age, well developed/ well nourished, no cyanosis, pallor, or diaphoresis. EYES lids/conjunctiva normal. EARS/NOSE/THROAT Mucous membranes moist, nares normal, lips/teeth normal uvula midline without oral pharyngeal erythema, exudate or swelling TMs normal bilaterally. No lymphangitis/lymphedema. HEAD/NECK normocephalic atraumatic, no facial trauma, neck is supple. RESPIRATORY respiratory effort normal, speaks in full sentences, no tripod position, no accessory muscle use. Lungs clear to auscultation without rhonchi, wheezes, rales CARDIAC Regular rate and rhythm, no edema. ABDOMINAL Soft, ND/NT. No evidence of fluid wave. No pulsatile masses on exam, rebound tenderness, Wang sign or pain over Mcburney's point. MUSCLES/EXTREMITIES No abnormal range of motion, no swelling. SKIN Warm, pink and dry. No rashes, dermatoses, petechiae or lesions. NEUROLOGICAL Speech is clear and appropriate. Normal level of consciousness. Gait and coordination are normal. 5/5 strength in all extremities. PSYCH Normal mood and affect. Judgement/competence is appropriate Discharge Plan Discharge Items Patient Disposition: Home - Home Health Services Reason For Visit: COPD EXACERBATION Discharge Diagnosis: COPD Exacerbation Condition on Discharge: Fair Activity: Resume your previous activity Non-emergency contact: Primary Care Provider Call non-emergency contact if: you have any medication questions Follow-up/Referrals: Radha Barboza PA-C [Primary Care Provider] - Diet: Regular Addtl Attending Provider Instructions: Follow up with PMD in 1 week Pending Studies at Discharge: No Stand-Alone Forms: My [employer], Smoking Cessation Medications and DC Order Prescriptions: Continued bumetanide 2 mg tablet 4 mg PO DAILY Qty: 360 3RF Hold Instructions: Resume on 09/02/24. Rx Instructions: PER PT "TAKE 4 MG BID EVERY DAY". Can increase to 4 mg BID as needed for weight gain. albuterol sulfate 90 mcg/actuation HFA aerosol inhaler 2 puff INHALATION Q4H PRN (Reason: Shortness Of Breath Or Wheezing) Qty: 8.5 3RF levalbuterol tartrate 45 mcg/actuation HFA aerosol inhaler 2 puff INHALATION Q6H PRN (Reason: WHEEZE) Qty: 15 3RF budesonide 0.25 mg/2 mL suspension for nebulization 0.25 mg inhalation BID Qty: 60 3RF Trelegy Ellipta 200-62.5-25 mcg blister with device 1 ea INHALATION QAM Qty: 60 5RF levalbuterol HCl 1.25 mg/3 mL solution for nebulization 1.25 mg INHALATION Q8H PRN (Reason: Shortness Of Breath Or Wheezing) ipratropium bromide 0.02 % solution 3 ml continuous nebulization QID PRN (Reason: shortness of breath) Qty: 75 0RF allopurinol 300 mg tablet 300 mg PO DAILY citalopram 20 mg tablet 20 mg PO HS Mounjaro 7.5 mg/0.5 mL pen injector 7.5 mg SUBCUT WK enoxaparin [Lovenox] 120 mg/0.8 mL Syringe 120 mg subcut DAILY Qty: 8 0RF cephalexin 500 mg Capsule 500 mg PO QID Qty: 14 0RF insulin aspart U-100 [Novolog FlexPen U-100 Insulin] 100 unit/mL (3 mL) insulin pen 0 sliding scale dose subcut TIDM Rx Instructions: SLIDING SCALE WITH MEALS alprazolam 0.5 mg tablet 0.5 mg PO TID Hold Instructions: Resume on 04/06/24. Hold while you finish the course of fluconazole for the oral and esophageal thrush Rx Instructions: TAKES 0600, 1200, & 1800 DAILY EVERY DAY. PER PT "TAKING TO HELP WITH WITHDRAW FROM SUBOXONE". ondansetron 4 mg tablet,disintegrating 4 mg PO Q8 PRN (Reason: NAUSEA/VOMITING) colchicine 0.6 mg capsule 0.6 mg PO DAILY PRN (Reason: joint pain) Qty: 30 0RF insulin glargine [Lantus Solostar U-100 Insulin] 100 unit/mL (3 mL) insulin pen 60 unit SUBCUT QAM buprenorphine-naloxone 4-1 mg film 1 film sublingual DAILY Hold Instructions: Provider's Order: Dr. Gracia is prescribing 2 mg quetiapine 100 mg tablet 200 mg PO HS Qty: 0 0RF prednisone 5 mg tablet 15 mg PO DAILY Qty: 90 2RF Rx Instructions: PER PT "IF NEEDED, MAY TAKE ADDITIONAL 5 MG FOR TROUBLE BREATHING". tramadol 50 mg tablet 50 - 100 mg PO Q8H PRN (Reason: pain) Qty: 20 0RF Rx Instructions: has taken in hospital without issue Discharge Orders: Discharge Order (Routine); Ordered 12/01/24 Ordered By: Jonathan Esparza Admission Data Admit Date/Time: 11/25/24 11:59 Attending Provider: Jonathan Esparza Admit Provider: Jonathan Esparza Primary Care Provider: Radah Barboza Other Providers: Jonathan Esparza; Roseanna Olson; [facility] Hospital Stay Data Consultations 11/25/24 11:50 ED Decision to Admit Stat 11/25/24 14:37 Consult Pulmonology Routine Pending Results Patient Have Any Pending Studies at Discharge: No Discharge Instructions Given to Patient (Per Discharging Provider) Follow up with PMD in 1 week Total Time Total Time Spent Total Time Spent (In Minutes): 50 Coding Level of Care Code 98604 INP/OBS DISCH >30 MIN Diagnoses COPD exacerbation J44.1 DM II (diabetes mellitus, type II), controlled E11.9 Anxiety F41.9 Chronic heart failure with preserved ejection fraction I50.32 Heart failure chronicity: chronic Venous ulcers of both lower extremities I83.019; I83.029; L97.919; L97.929 History of DVT (deep vein thrombosis) Z86.718
[2024-12-01] MEDS: SOD PHOSPHATE/SOD BIPHOSPHATE ENEMA 132 ML BTL PR STA (10:58)
[2024-12-01 12:50] VITALS: PULSE 103; O2SAT 98
== END 2024-12-01 17:50 | disposition home health service (06) | DRG 191 ==
LOC: ED 10:29 → EDINP 11:59 → 3E 14:44 → 2N 17:34 → 3E 18:35

== ENCOUNTER 2024-12-21 18:41 | Inpatient (IN) ==
[2024-12-21 19:49] LABS: Hematocrit (blood only) 44.8 % (37.0-47.0); Hemoglobin 14.5 g/dl (12.0-16.0); Immature Granulocytes # (auto) 0.28 K/uL (0.01-0.20); Immature Granulocytes % (auto) 2.2 %; Mean Corpuscular Hemoglobin 27.4 pg (25.0-34.0); Mean Corpuscular Volume 84.5 fL (80.0-100.0); Platelet Count 273 K/uL (130-400); RDW Standard Deviation 61.6 fL (36.4-46.3); Red Blood Count 5.30 M/uL (4.20-5.40); White Blood Count 12.99 K/ul (4.8-10.8)
[2024-12-21 20:05] LABS: Alanine Aminotransferase 26.0 U/L (7-52); Albumin Globulin Ratio 1.2 (0.9-2); Alkaline Phosphatase 107.0 U/L (34-104); Anion Gap 11.0 (3-11); Bilirubin,Total 0.5 mg/dl (0.2-1.0); Blood Urea Nitrogen 21.0 mg/dl (6-23); Calcium 9.2 mg/dl (8.6-10.3); Carbon Dioxide 30.0 mmol/L (21-32); Chloride 96.0 mmol/L (98-107); Creatinine Clr Calc Pharmacy 55.3 ml/min; Globulin 3.4 gm/dl (2.5-4.0); Glucose 127.0 mg/dl (70-99(Fasting)); Magnesium 1.9 mg/dl (1.7-2.4); Potassium 3.7 mmol/L (3.5-5.1); Sodium 137.0 mmol/L (136-145); Total Protein 7.5 gm/dl (6.0-8.3)
--- NOTE | 2024-12-21 20:06 | XRay Report ---
EXAM: Portable AP chest radiograph TECHNIQUE: AP portable radiograph of the chest was obtained. INDICATION: Shortness of breath Comparison: Chest radiograph November 25, 2024 FINDINGS: LINES and TUBES: None. CARDIOVASCULAR: Cardiac silhouette is stably and mildly enlarged in size. LUNGS/PLEURA: Mild pulmonary vascular congestion and chronic interstitial lung changes are similar to the prior radiograph. No focal consolidation identified. No significant pleural fluid. No discernible pneumothorax. OSSEOUS/OTHER: No displaced acute osseous process identified. IMPRESSION: Mild congestive changes of the cardiovascular system that are similar to the previous radiograph. Electronically signed by Aneudy Barclay 12-21-2024 8:06 PM
[2024-12-21 20:08] LABS: Anisocytosis Present; Polychromasia 1+
[2024-12-21 20:15] LABS: INR 1.1 (0.9-1.1); Prothrombin Time 12.0 Seconds (9.0-12.0)
[2024-12-21 20:19] LABS: Base Excess VBG 8.6 mEq/L; HCO3 VBG 34 mmol/L; Oxygen Saturation VBG < 60.0 %; PCO2 VBG 49 mmHg (38-50); PO2 VBG 22 mmHg; pH VBG 7.45 (7.36-7.41)
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
[2024-12-21] MEDS: ALBUT/IPRATROP 3MG/0.5MG NEB 3 ML VIAL NEB STA (20:59)
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
[2024-12-21] MEDS ORDERED: GLUCOSE 40% GEL 15 GM TUBE PO PRN (23:13)
[2024-12-21] MEDS ORDERED: DOCUSATE SODIUM 100 MG CAP PO PRN (23:13)
[2024-12-21] MEDS ORDERED: GLUCOSE 10 TAB/TUBE PO PRN (23:13)
[2024-12-21] MEDS ORDERED: DEXTROSE 50% 50 ML SYRINGE IV PRN (23:13)
[2024-12-21] MEDS ORDERED: ONDANSETRON INJ 2 MG/ML 2 ML VIAL IV PRN (23:13)
[2024-12-21] MEDS ORDERED: CARBOHYDRATES FOR HYPOGLYCEMIA PO PRN (23:13)
[2024-12-21] MEDS ORDERED: ACETAMINOPHEN 325 MG TAB PO PRN (23:13)
[2024-12-21] MEDS ORDERED: MELATONIN 3 MG TAB PO PRN (23:13)
[2024-12-21] MEDS ORDERED: GLUCAGON FOR INJ 1 MG VIAL SQ PRN (23:13)
[2024-12-21] MEDS ORDERED: ALBUTEROL HFA 8 GM INHALER INH PRN (23:13)
[2024-12-21] MEDS: BUMETANIDE 2 MG in SYRINGE 0 ML IV ONE (23:19)
[2024-12-21] MEDS ORDERED: CITALOPRAM 20 MG TAB PO STA (23:53)
[2024-12-22] MEDS: CITALOPRAM 20 MG TAB PO STA (00:12)
[2024-12-22] MEDS: BUDESONIDE 0.25 MG/2 ML VIAL (PULMICORT) INH SCH (07:00)
[2024-12-22] MEDS: LEVALBUTEROL TARTRATE 15 GM HFA.AER.AD INH PRN (07:01)
[2024-12-22] MEDS: IPRATROPIUM BROMIDE NEB SOLN 0.02% 0.5MG/2.5ML VIAL NEB PRN (07:01)
[2024-12-22 07:25] LABS: Hematocrit (blood only) 40.5 % (37.0-47.0); Hemoglobin 12.4 g/dl (12.0-16.0); Mean Corpuscular Hemoglobin 27.4 pg (25.0-34.0); Mean Corpuscular Volume 89.4 fL (80.0-100.0); Platelet Count 225 K/uL (130-400); RDW Standard Deviation 64.9 fL (36.4-46.3); Red Blood Count 4.53 M/uL (4.20-5.40); White Blood Count 11.36 K/ul (4.8-10.8)
[2024-12-22 07:43] LABS: Immature Granulocytes # (auto) 0.29 K/uL (0.01-0.20); Immature Granulocytes % (auto) 2.6 %; Ovalocytes 1+; Polychromasia 1+
[2024-12-22 07:44] LABS: Anisocytosis Present
[2024-12-22] MEDS ORDERED: NON-FORMULARY MEDICATION (Fluticasone-Umeclidin-Vilanter [Trelegy Ellipta] 200-62.5-25 mcg INH SCH (09:00)
[2024-12-22] MEDS: BUMETANIDE 4 MG in SYRINGE 0 ML IV SCH (09:03)
[2024-12-22] MEDS: ENOXAPARIN INJ 120 MG/0.8 ML SYR SQ SCH (09:04)
[2024-12-22] MEDS: INSULIN ASPART PER UNIT CHARGE SC SCH (09:05)
[2024-12-22] MEDS: LANTUS PER UNIT CHARGE SQ SCH (09:05)
[2024-12-22] MEDS: BUPRENORPHINE/NALOXONE 2/0.5MG TAB SL SCH (09:05)
[2024-12-22] MEDS: UMECLIDINIUM/VILANTEROL 62.5/25MCG 7 PUFFS/INHALER INH SCH (10:14)
[2024-12-22] MEDS: FLUTICASONE FUROATE 200MCG 14 PUFFS/INHALER INH SCH (10:14)
[2024-12-22] MEDS: LEVALBUTEROL 1.25 MG/3 ML NEB INH PRN (11:37)
[2024-12-22 14:54] LABS: Anion Gap 10.0 (3-11); Blood Urea Nitrogen 19.0 mg/dl (6-23); Calcium 8.9 mg/dl (8.6-10.3); Carbon Dioxide 30.0 mmol/L (21-32); Chloride 94.0 mmol/L (98-107); Creatinine Clr Calc Pharmacy 52.5 ml/min; Glucose 222.0 mg/dl (70-99(Fasting)); Magnesium 1.8 mg/dl (1.7-2.4); Potassium 4.1 mmol/L (3.5-5.1); Sodium 134.0 mmol/L (136-145)
--- NOTE | 2024-12-22 15:05 | Hospitalist Progress Note ---
Date of Service December 22, 2024 Assessment & Plan (1) Acute CHF (congestive heart failure): (2) HARRIS (dyspnea on exertion): (3) Elevated troponin: (4) Asthma-COPD overlap syndrome: Plan 64 y/o with chronically poorly controlled asthma/COPD overlap, chronic HFpEF, ELEUTERIO, DM2, anxiety, former opioid dependence, multiple myeloma s/p bone marrow transplant. Patient is being admitted for acute CHF exacerbation. #acute HFpEF - patient appearing relatively comfortable on exam today. Still appearing mildly hypervolemic with LE edema. She's saturating well on room air, however wheezes and rales are heard diffusely throughout the lungs. This is likely the result of her chronic poorly controlled asthma/COPD. - Last echocardiogram 08/18 showed EF 60 to 65%, mild RVH, moderate LVH. [facility] records reviewed, no recent echo within EMR. CXR showed mild congestive changes similar to previous. BNP 104. - repeat echo showing EF >70% without regional wall motion abnormalities. Moderate concentric LVH. - on Bumex 4 Mg daily at home, takes 8mg prn for increase in edema - continue with 4 Mg IV twice daily. - discussed with patient the importance of diet and salt intake to help prevent further fluid overload results in CHF exacerbation. Will continue patient on low-sodium heart-healthy diet - Strict I&O monitoring - Daily weights - promote leg elevation, defer TEDs with wounds - incentive spirometry - oxygen as needed for O2 <90% - daily renal panel and Mg with diuretic use #elevated troponin - chronic elevated, however mildly increased from baseline likely 2/2 demand ischemia with above. Troponin 29.1. Patient denies any chest pain. - repeat troponin continues to downtrend, now 21.2 - patient on telemetry monitoring - overnight NSR 90s-100s, no actionable events ; continue telemetry - EKG as needed for chest pain #COPD/Asthma - Recently treated for acute COPD exacerbation x 2 over the past month with hospitalization, currently stable/no exacerbation. Has 2 to 3 L oxygen as needed at home. Saturating well on room air. - continue home inhalers - O2 as needed #leukocytosis - 2/2 chronic steroid use, improved from baseline. - WBC this morning improved to 11.3 - afebrile #DM2-last HgbA1c 9.0% - Continue basal bolus + SS insulin - glargine reduced from 60 u QM to 45 Q AM with tight diet control - SSI with target BSG range 110-140mg/dL, CF 20, carb ratio 5 - She is on Mounjaro as an outpatient - injections on Saturdays - hold #chronic BL LE wounds - follows with wound care - to have appointment 12/22. - wound care consulted - Daily dressing changes #ELEUTERIO - continue CPAP at bedtime #hx DVTs on chronic enoxaparin - continue Lovenox #anxiety and opioid dependence - Followed by Dr. Gracia. - suboxone 2 mg daily - xanax tid scheduled - cont Seroquel and Celexa VTE ppx: Continue home lovenox Dispo: PCU Admission and Anticipated Discharge Date Admission Date: December 21, 2024 Supervising Physician Co-Signing Physician Notes I personally examined the patient and verified all rosario points of history and exam, discussed case, and agree with decision making with Dr Mckeon Ongoing struggles with CHF. Wonders if her meds are causing her problems at home. In discussion with diet she is quite sodium in discriminant eating a lot of what sounds to be prepackaged foods and soups. Vitals noted, in general she is awake and alert pleasant no distress. HEENT normocephalic atraumatic mucous membranes moist. Lungs with faint basilar rales. Right shoulder with superior and lateral tenderness no effusion no crepitus. Acute on chronic diastolic CHF (acute on chronic HFpEF)most likely this relates to sodium intake at home. Started to educate her on the same. Given her psychosocial and socioeconomic circumstances, it may be a little bit more difficult for her to find ways to stay less than 2000 mg of sodium per day and less than 500 mg of sodium per meal, but we will work together to try to give her guidance and I have asked dietitian to see her as well. Continue to diurese. Continue to follow. Right shoulder painseems to be a chronic complaint but she noted that nobody is ever addressed itwe should examine seems to be probably a supraspinatus issue, but given her prior myeloma/etc. we will get some plain film x-rays to ensure there is not bony pathology I am missing on exam. Anticoagulated Subjective Patient seen and examined at bedside this morning. Awake, alert, and no acute distress. No overnight events. No acute concerns. Patient reports still "feeling puffy" in her hands and lower extremities. Denies chest discomfort, palpitations, shortness of breath. Has been tolerating diet without issue. Denies N/V/abdominal pain. Ambulating, voiding, and moving bowels without concern. Review of Systems Review of Systems: All systems reviewed & are unremarkable except as noted in HPI & below Physical Exam Constitutional: WD/WN, vitals as above Eyes: PERRL, conjunctivae normal, anicteric sclerae Respiratory: normal respiratory effort; no respiratory distress Auscultation: + rales and + wheezes Cardiovascular: Rate/Rhythm: regular rate and regular rhythm Extremities: + edema Gastrointestinal (Abdomen): normal bowel sounds, soft, nontender, no he patosplenomegaly Musculoskeletal: Head/Neck/Chest: normocephalic and head atraumatic Extremities: extremities normal to inspection Skin: no rashes, warm and dry Neurologic: PERRL, EOMI, accommodation nl, no face palsy, no dysarthria CN's II-XI intact bilaterally Psychiatric: A+Ox3, euthymic affect Results & Data Results & Data Vital Signs (Past 12 Hours) Vital Signs Temp Pulse Pulse Resp BP BP Pulse Ox 12/22/24 11:37 105 H 19 93 12/22/24 10:43 36.7 C 87 19 122/77 91 12/22/24 08:00 96 H 12/22/24 07:01 36.4 C L 99 H 18 104/74 91 12/22/24 07:01 99 H 18 91 12/22/24 03:24 50 L 11 L 98 12/22/24 03:08 36.6 C 99 H 20 108/75 96 O2 Del Method O2 Flow Rate FiO2 12/22/24 11:37 Room Air 21 12/22/24 10:43 Room Air 12/22/24 08:00 12/22/24 07:01 Room Air 12/22/24 07:01 Room Air 12/22/24 03:24 2 12/22/24 03:08 BiPAP
--- NOTE | 2024-12-22 15:22 | XCELERA ---
[id number] [id number]
--- NOTE | 2024-12-22 17:53 | Billing Data ---
Date of Service December 22, 2024 Coding Level of Care Code 57073 SUB INP/OBS CARE MIN
--- NOTE | 2024-12-22 18:30 | XRay Report ---
Clinical History: Pain. 3 views of the right shoulder are submitted for review. Findings: There are suspected old right rib fractures. No definite acute fracture is seen No subluxation or dislocation is seen. There is mild acromioclavicular and glenohumeral osteoarthritis. No other osseous abnormality is identified. There are no radiopaque foreign bodies. Impression: Mild osteoarthritis Electronically signed by Juan Helton 12-22-2024 6:27 PM
[2024-12-22 18:32] LABS: Appearance Urine Clear (Clear); Glucose Urine UA 2+ (Negative)
[2024-12-22] MEDS: CITALOPRAM 20 MG TAB PO SCH (21:48)
[2024-12-23 07:01] LABS: Hematocrit (blood only) 38.3 % (37.0-47.0); Hemoglobin 12.5 g/dl (12.0-16.0); Mean Corpuscular Hemoglobin 28.0 pg (25.0-34.0); Mean Corpuscular Volume 85.7 fL (80.0-100.0); Platelet Count 240 K/uL (130-400); RDW Standard Deviation 59.9 fL (36.4-46.3); Red Blood Count 4.47 M/uL (4.20-5.40); White Blood Count 9.99 K/ul (4.8-10.8)
[2024-12-23 07:26] LABS: Anion Gap 9.0 (3-11); Blood Urea Nitrogen 22.0 mg/dl (6-23); Calcium 9.4 mg/dl (8.6-10.3); Carbon Dioxide 31.0 mmol/L (21-32); Chloride 97.0 mmol/L (98-107); Creatinine Clr Calc Pharmacy 65.6 ml/min; Glucose 113.0 mg/dl (70-99(Fasting)); Magnesium 1.9 mg/dl (1.7-2.4); Potassium 3.4 mmol/L (3.5-5.1); Sodium 137.0 mmol/L (136-145)
[2024-12-23] MEDS: COLCHICINE 0.6 MG TAB PO PRN (12:22)
--- NOTE | 2024-12-23 13:23 | Hospitalist Progress Note ---
Date of Service December 23, 2024 Assessment & Plan (1) Acute CHF (congestive heart failure): (2) HARRIS (dyspnea on exertion): (3) Elevated troponin: (4) Asthma-COPD overlap syndrome: Plan 64 y/o with chronically poorly controlled asthma/COPD overlap, chronic HFpEF, ELEUTERIO, DM2, anxiety, former opioid dependence, multiple myeloma s/p bone marrow transplant. Patient is being admitted for acute CHF exacerbation. #acute HFpEF - patient appearing relatively comfortable on exam today. Still appearing mildly hypervolemic with LE edema. She's saturating well on room air, however there are still rales present in the bases of the lungs bilaterally. - echocardiogram 08/18 showed EF 60 to 65%, mild RVH, moderate LVH. [facility] records reviewed, no recent echo within EMR. CXR showed mild congestive changes similar to previous. BNP 104. - repeat echo showing EF >70% without regional wall motion abnormalities. Moderate concentric LVH. - on Bumex 4 Mg daily at home, takes 8mg prn for increase in edema. Patient's volume status is improving from when she first arrived, however given recent exam, there is reason to believe we can continue with diuresis. Bumex 4mg IV bid - will also monitor blood pressure & kidney function. Cr 0.84 this morning - discussed with patient the importance of diet and salt intake to help prevent further fluid overload results in CHF exacerbation. Will continue patient on low-sodium heart-healthy diet - Strict I&O monitoring - Daily weights - promote leg elevation, defer TEDs with wounds - incentive spirometry - oxygen as needed for O2 <90% - BMP qAM #elevated troponin - chronic elevated, however mildly increased from baseline likely 2/2 demand ischemia with above. Troponin 29.1 on admission and has downtrended. Repeat trop 12/22 now 21.2. - patient on telemetry monitoring - overnight sinus tach 90s-110s, no actionable events ; this morning NSR rate of 90s. No actionable events. Continue telemetry - EKG as needed for chest pain #shoulder pain / back pain - patient having right-sided shoulder pain, likely due to supraspinatus pathology, however given patient multiple myeloma hx, XR right shoulder completed yesterday showing osteoarthritic changes, otherwise no other acute patohlogy. - patient also noting left sided back/rib pain that started after a fall last week, however more bothersome this morning and had interfered with sleep. Likely muscle spasm, given mechanism of injury. - Mg 4mg IV ordered to help with muscle spasm - voltren gel qid prn for right shoulder and other arthritis pain #COPD/Asthma - Recently treated for acute COPD exacerbation x 2 over the past month with hospitalization, currently stable/no exacerbation. Has 2 to 3 L oxygen as needed at home. Saturating well on room air. - continue home inhalers - O2 as needed #leukocytosis - 2/2 chronic steroid use, improved from baseline. - WBC continues to downtrend since admission. Now WBC 9.9. Patient remains afe brile and hemodynamically stable #DM2-last HgbA1c 9.0% - Continue basal bolus + SS insulin - glargine reduced from 60 u QM to 45 Q AM with tight diet control - SSI with target BSG range 110-140mg/dL, CF 20, carb ratio 5 - She is on Mounjaro as an outpatient - injections on Saturdays - hold #chronic BL LE wounds - follows with wound care - to have appointment 12/22. - wound care consulted while inpatient and recommended daily dressing changes. Pt to follow-up with wound care within 1 week in outpatient after discharge #ELEUTERIO - continue CPAP at bedtime #hx DVTs on chronic enoxaparin - continue Lovenox #anxiety and opioid dependence - Followed by Dr. Gracia. - suboxone 2 mg daily, planned to be schedule qod ; will continue daily scheduling here - xanax tid scheduled - cont Seroquel and Celexa VTE ppx: Continue home lovenox Dispo: PCU Admission and Anticipated Discharge Date Admission Date: December 23, 2024 Supervising Physician Co-Signing Physician Notes I personally examined the patient and verified all rosario points of history and exam, discussed case, and agree with decision making with Dr Mckeon Left-sided rib painnotes that she gets this from time to timereally bad right now hurts worse to take a deep breath. Otherwise her breathing does not really feel better. Vitals noted, in general she is awake and alert pleasant appears to be a little bit uncomfortable. Lungs with faint bibasilar rales no rhonchi no wheezes. Left-sided ribs high tone, tender, decreased range of motion as well as left-sided T-spine paraspinals high tone tender decreased range of motionas best I could gentle OMT was done. Patient tolerated well. I did have to abort post isometric relaxation/muscle energy to the serratus anterior region due to her not being able to tolerate this. Acute on chronic diastolic CHF (acute on chronic HFpEF)most likely this relates to sodium intake at home. Started to educate her on the same. Given her psychosocial and socioeconomic circumstances, it may be a little bit more difficult for her to find ways to stay less than 2000 mg of sodium per day and less than 500 mg of sodium per meal, but we will work together to try to give her guidance and I have asked dietitian to see her as well. Continue to diures eImproving but definitely still has fluid and I suspect that with her chronic lung disease she will probably be better off if we get her as dry as we can prior to discharge. Continue to follow. Right shoulder pain Exam consistent with rotator cuff, x-ray only shows arthritisnot unexpected. Voltaren gel for now. PT as an outpatient left-sided rib cage/intercostal spasmsOMT as best could be done as above. IV magnesium as a muscle relaxant. Anticoagulated, Stable for medical. Subjective Patient seen and examined at bedside this morning. Awake, alert, and no acute distress. No acute concerns. States having a hard time sleeping overnight. Was having some SOB which was relieved when placed on bipap - of note, patient does have hx ELEUTERIO and on cpap at home. Patient still reporting some shortness of breath that is slightly worse than baseline, however is responding appropriately and speaking in clear, full sentences. Patient has also reported new left sided back pain, states it feels muscular and noticed it when she woke up this morning. States she had fallen last week and pain onset started a day or two later. More bothersome today. Denies chest discomfort, palpitations. Has been tolerating diet without issue. Denies N/V/abdominal pain. Ambulating, voiding, and moving bowels without concern. Review of Systems Review of Systems: All systems reviewed & are unremarkable except as noted in HPI & below Physical Exam Constitutional: WD/WN, vitals as above Eyes: PERRL, conjunctivae normal, anicteric sclerae Respiratory: normal respiratory effort; no respiratory distress Auscultation: + rales and + wheezes Cardiovascular: Rate/Rhythm: regular rate and regular rhythm Extremities: + edema Gastrointestinal (Abdomen): normal bowel sounds, soft, nontender, no hepatosp lenomegaly Musculoskeletal: Head/Neck/Chest: normocephalic and head atraumatic Extremities: extremities normal to inspection Skin: no rashes, warm and dry Neurologic: PERRL, EOMI, accommodation nl, no face palsy, no dysarthria CN's II-XI intact bilaterally Psychiatric: A+Ox3, euthymic affect Results & Data Results & Data Vital Signs (Past 12 Hours) Vital Signs Temp Pulse Pulse Resp BP BP Pulse Ox 12/23/24 11:14 36.9 C 118 H 18 125/86 92 12/23/24 10:46 104 H 17 98 12/23/24 08:00 97 H 12/23/24 08:00 12/23/24 07:41 36.6 C 96 H 18 107/75 90 12/23/24 03:35 98 H 11 L 92 12/23/24 03:18 36.4 C L 96 H 18 120/87 99 O2 Del Method O2 Flow Rate FiO2 12/23/24 11:14 Room Air 12/23/24 10:46 Room Air 21 12/23/24 08:00 12/23/24 08:00 Room Air 12/23/24 07:41 Room Air 12/23/24 03:35 2 12/23/24 03:18 BiPAP
[2024-12-23] MEDS: MAGNESIUM SULFATE / D5W 1 GM/100 ML BAG IV SCH (14:06)
[2024-12-23] MEDS: DICLOFENAC SOD 1% GEL 100 GM TUBE EXT PRN (14:07)
--- NOTE | 2024-12-23 18:12 | Billing Data ---
Date of Service December 23, 2024 Coding Level of Care Code 59376 SUB INP/OBS CARE MIN
--- NOTE | 2024-12-24 05:22 | Electrocardiogram Report ---
Test Reason : Blood Pressure : */* mmHG Vent. Rate : 109 BPM Atrial Rate : 109 BPM P-R Int : 136 ms QRS Dur : 64 ms QT Int : 332 ms P-R-T Axes : -17 -9 -11 degrees QTcB Int : 447 ms Sinus tachycardia Premature atrial complexes Inferior infarct (cited on or before 16-Aug-2023) Possible Anterior infarct , age undetermined Abnormal ECG When compared with ECG of 25-Nov-2024 10:47, Borderline criteria for Anterior infarct are now Present Nonspecific T wave abnormality now evident in Inferior leads Premature atrial complexes are now Present Confirmed by Roel Willams ([id number]) on 12/24/2024 5:22:06 AM Referred By: REFERRED SELF Confirmed By: Roel Willams
[2024-12-24 06:21] LABS: Hematocrit (blood only) 41.0 % (37.0-47.0); Hemoglobin 12.9 g/dl (12.0-16.0); Mean Corpuscular Hemoglobin 27.2 pg (25.0-34.0); Mean Corpuscular Volume 86.5 fL (80.0-100.0); Platelet Count 258 K/uL (130-400); RDW Standard Deviation 60.1 fL (36.4-46.3); Red Blood Count 4.74 M/uL (4.20-5.40); White Blood Count 12.15 K/ul (4.8-10.8)
[2024-12-24 06:50] LABS: Anion Gap 9.0 (3-11); Blood Urea Nitrogen 27.0 mg/dl (6-23); Calcium 9.2 mg/dl (8.6-10.3); Carbon Dioxide 32.0 mmol/L (21-32); Chloride 93.0 mmol/L (98-107); Creatinine Clr Calc Pharmacy 60.5 ml/min; Glucose 86.0 mg/dl (70-99(Fasting)); Potassium 3.4 mmol/L (3.5-5.1); Sodium 134.0 mmol/L (136-145)
--- NOTE | 2024-12-24 09:42 | Hospitalist Progress Note ---
Date of Service December 24, 2024 Assessment & Plan (1) Acute CHF (congestive heart failure): (2) HARRIS (dyspnea on exertion): (3) Elevated troponin: (4) Asthma-COPD overlap syndrome: Plan 64 y/o with chronically poorly controlled asthma/COPD overlap, chronic HFpEF, ELEUTERIO, DM2, anxiety, former opioid dependence, multiple myeloma s/p bone marrow transplant. Patient is being admitted for acute CHF exacerbation. #acute HFpEF - patient appearing relatively comfortable on exam today. Still appearing mildly hypervolemic with LE edema. She's saturating well on room air, however there are still rales present in the bases of the lungs bilaterally. - echocardiogram 08/18 showed EF 60 to 65%, mild RVH, moderate LVH. [facility] [address] [facility] records reviewed, no recent echo within EMR. CXR showed mild congestive changes similar to previous. BNP 104. - repeat echo showing EF >70% without regional wall motion abnormalities. Moderate concentric LVH. - on Bumex 4 Mg daily at home, takes 8mg prn for increase in edema. Patient's volume status is improving from when she first arrived, however given recent exam, there is reason to believe we can continue with diuresis. Bumex 4mg IV bid - will also monitor blood pressure & kidney function. Cr 0.91 this morning - discussed with patient the importance of diet and salt intake to help prevent further fluid overload results in CHF exacerbation. Will continue patient on low-sodium heart-healthy diet - Strict I&O monitoring - Daily weights - promote leg elevation, defer TEDs with wounds - incentive spirometry - oxygen as needed for O2 <90% - BMP qAM #elevated troponin - chronic elevated, however mildly increased from baseline likely 2/2 demand ischemia with above. Troponin 29.1 on admission and has downtrended. Repeat trop 12/22 now 21.2. - patient on telemetry monitoring - overnight sinus tach 90s-110s, no actionable events ; this morning NSR rate of 90s. No actionable events. Continue telemetry - EKG as needed for chest pain #shoulder pain / back pain - patient having right-sided shoulder pain, likely due to supraspinatus pathology, however given patient multiple myeloma hx, XR right shoulder completed yesterday showing osteoarthritic changes, otherwise no other acute patohlogy. - patient also noting left sided back/rib pain that started after a fall last week, however more bothersome this morning and had interfered with sleep. Likely muscle spasm, given mechanism of injury. - Was given Mg 4mg IV ordered to help with muscle spasm. This does not seem to have helped. Ordered lidocaine patches for the rib pain. - voltren gel qid prn for right shoulder and other arthritis pain #COPD/Asthma - Recently treated for acute COPD exacerbation x 2 over the past month with hospitalization, currently stable/no exacerbation. Has 2 to 3 L oxygen as needed at home. Saturating well on room air. - continue home inhalers - O2 as needed #leukocytosis - 2/2 chronic steroid use, improved from baseline. - WBC increased to 12.15 this morning. Patient remains afebrile and hemodynamically stable. This increase could be due to a stress response from the pain. #DM2-last HgbA1c 9.0% - Continue basal bolus + SS insulin - glargine reduced from 60 u QM to 45 Q AM with tight diet control - SSI with target BSG range 110-140mg/dL, CF 20, carb ratio 5 - She is on Mounjaro as an outpatient - injections on Saturdays - hold #chronic BL LE wounds - follows with wound care - to have appointment 12/22. - wound care consulted while inpatient and recommended daily dressing changes. Pt to follow-up with wound care within 1 week in outpatient after discharge #ELEUTERIO - continue CPAP at bedtime #hx DVTs on chronic enoxaparin - continue Lovenox #anxiety and opioid dependence - Followed by Dr. Gracia. - suboxone 2 mg daily, planned to be schedule qod ; will continue daily scheduling here - xanax tid scheduled - cont Seroquel and Celexa VTE ppx: Continue home lovenox Dispo: PCU Admission and Anticipated Discharge Date Admission Date: December 23, 2024 Supervising Physician Co-Signing Physician Notes I personally examined the patient and verified all rosario points of history and exam, discussed case, and agree with decision making with Dr Rowland Still with left-sided rib painnot really any better. Nothing yesterday seem to help much. Breathing still has dyspnea on exertion. Vitals noted, in general she is awake and alert pleasant no distress. HEENT normocephalic atraumatic mucous membranes moist. Lungs are more clearwhere she had faint base rales yesterday are now very faint base rhonchi only. Skin shows no rashes no pallor or icterus. Neuro without focal deficits. Acute on chronic diastolic CHF (acute on chronic HFpEF)most likely this relates to sodium intake at home. Continuing to educate her on the same. Given her psychosocial and socioeconomic circumstances, it may be a little bit more difficult for her to find ways to stay less than 2000 mg of sodium per day and less than 500 mg of sodium per meal, but we will work together to try to give her guidance dietitian was consultedpatient declined their education, and whenever I discussed this with her she then noted she did no such thing. Continue to diureseImproving but definitely still has fluid and I suspect that with her chronic lung disease she will probably be better off if we get her as dry as we can prior to discharge. Continue to follow. Right shoulder pain Exam consistent with rotator cuff, x-ray only shows arthritisnot unexpected. Voltaren gel for now. PT as an outpatient left-sided rib cage/intercostal spasms has been stubborn. Given how tenuous her breathing is probably this makes her feel more short of breath 2. Tried OMT yesterday without much success, mag as a muscle relaxant yesterday without any success, will add lidocaine patch. Constipationenema or suppository as needed as she requested. Anticoagulated, Stable for medical. Subjective Patient this morning stated that she wasnt feeling good. Patient reports that the rib pain made it difficult to sleep and made her teary eyed last night. Patient also expressed that her shoulder was hurting as well. Patient also expressed that her brain felt "foggy". Patient still expressed feeling short of breath and stated that even walking to the bathroom causes her to get short of breath. Patient also stated she feels like she hasn't gone to urinate a lot. Patient denies any nausea. Review of Systems Review of Systems: as per subjective HPI Physical Exam Constitutional: WD/WN, vitals as above Respiratory: Auscultation: + diminished lung sounds Cardiovascular: Rate/Rhythm: regular rate and regular rhythm Heart Sounds: normal S1 and normal S2 Extremities: + pedal edema (L. ankle edema) and + edema (R. leg 1+, L. leg trace-1+. Fingers bilaterally are swollen upon insp ection) Musculoskeletal: Head/Neck/Chest: + localized rib tenderness (L. rib 9-10) Shoulder: + joint line tenderness (R. shoulder) tenderness to palpation on tibias B/L Skin: Trauma: + evidence of skin trauma (leg wounds B/L) Psychiatric: Eye Contact: good eye contact Speech: normal rate/rhythm/volume of speech Thought Process: linear/logical thought process Results & Data Results & Data Vital Signs (Past 12 Hours) Vital Signs Temp Pulse Pulse Resp BP BP Pulse Ox 12/24/24 07:12 36.4 C L 89 14 126/85 94 12/24/24 06:57 81 18 90 12/24/24 03:06 101 H 11 L 92 12/24/24 00:03 99 H 14 95 12/23/24 22:31 36.5 C 90 18 111/74 95 O2 Del Method O2 Flow Rate 12/24/24 07:12 Room Air 12/24/24 06:57 Room Air 12/24/24 03:06 2 12/24/24 00:03 2 12/23/24 22:31 Room Air
[2024-12-24] MEDS: DICLOFENAC SOD 1% GEL 100 GM TUBE EXT SCH (10:18)
[2024-12-24] MEDS: LIDOCAINE 5% 1 PATCH TD STA (14:17)
--- NOTE | 2024-12-24 17:51 | Billing Data ---
Date of Service December 24, 2024 Coding Level of Care Code 17952 SUB INP/OBS CARE MIN
[2024-12-24] MEDS ORDERED: REMOVE LIDODERM PATCH SCH (21:00)
[2024-12-24] MEDS: REMOVE LIDODERM PATCH SCH (21:35)
[2024-12-25 07:14] LABS: Hematocrit (blood only) 40.7 % (37.0-47.0); Hemoglobin 12.8 g/dl (12.0-16.0); Mean Corpuscular Hemoglobin 27.0 pg (25.0-34.0); Mean Corpuscular Volume 85.9 fL (80.0-100.0); Platelet Count 232 K/uL (130-400); RDW Standard Deviation 59.8 fL (36.4-46.3); Red Blood Count 4.74 M/uL (4.20-5.40); White Blood Count 11.70 K/ul (4.8-10.8)
--- NOTE | 2024-12-25 08:55 | Hospitalist Progress Note ---
Date of Service December 25, 2024 Assessment & Plan (1) Acute CHF (congestive heart failure): (2) HRARIS (dyspnea on exertion): (3) Elevated troponin: (4) Asthma-COPD overlap syndrome: Plan 64 y/o with chronically poorly controlled asthma/COPD overlap, chronic HFpEF, ELEUTERIO, DM2, anxiety, former opioid dependence, multiple myeloma s/p bone marrow transplant. Patient is being admitted for acute CHF exacerbation. #acute HFpEF - patient appearing relatively comfortable on exam today. Still appearing mildly hypervolemic with LE edema. She's saturating well on room air, however there are still rales present in the bases of the lungs bilaterally. - echocardiogram 08/18 showed EF 60 to 65%, mild RVH, moderate LVH. [facility] records reviewed, no recent echo within EMR. CXR showed mild congestive changes similar to previous. BNP 104. - repeat echo showing EF >70% without regional wall motion abnormalities. Moderate concentric LVH. - on Bumex 4 Mg daily at home, takes 8mg prn for increase in edema. Patient's volume status is improving from when she first arrived, however given recent exam, there is reason to believe we can continue with diuresis. Bumex 4mg IV bid - will also monitor blood pressure & kidney function. Cr 0.78 this morning - discussed with patient the importance of diet and salt intake to help prevent further fluid overload results in CHF exacerbation. Will continue patient on low-sodium heart-healthy diet - Strict I&O monitoring - Daily weights - promote leg elevation, defer TEDs with wounds - oxygen as needed for O2 <90% - BMP qAM #elevated troponin - chronic elevated, however mildly increased from baseline likely 2/2 demand ischemia with above. Troponin 29.1 on admission and has downtrended. Repeat trop 12/22 now 21.2. - patient on telemetry monitoring - overnight sinus tach 90s-110s, no actionable events ; this morning NSR rate of 90s. No actionable events. Continue telemetry - EKG as needed for chest pain #shoulder pain / back pain - patient having right-sided shoulder pain, likely due to supraspinatus pathology, however given patient multiple myeloma hx, XR right shoulder completed yesterday showing osteoarthritic changes, otherwise no other acute patohlogy. - patient also noting left sided back/rib pain that started after a fall last week, however more bothersome this morning and had interfered with sleep. Likely muscle spasm, given mechanism of injury. - Was given Mg 4mg IV ordered to help with muscle spasm. This does not seem to have helped. Ordered lidocaine patches for the rib pain. Patient denied wanting the lidocaine patches stating "she doesn't like anything on her skin". Will discontinue lidocaine patches. - voltren gel qid prn for right shoulder and other arthritis pain #COPD/Asthma - Recently treated for acute COPD exacerbation x 2 over the past month with hospitalization, currently stable/no exacerbation. Has 2 to 3 L oxygen as needed at home. Saturating well on room air. - continue home inhalers - O2 as needed #leukocytosis - 2/2 chronic steroid use, improved from baseline. - WBC increased to 12.15 on 12/24, but went back down to 11.70 this morning. Patient remains afebrile and hemodynamically stable. This increase could be due to a stress response from the pain. - CBC w/ diff qAM #DM2-last HgbA1c 9.0% - Continue basal bolus + SS insulin - glargine reduced from 60 u QM to 45 Q AM with tight diet control - SSI with target BSG range 110-140mg/dL, CF 20, carb ratio 5 - She is on Mounro as an outpatient - injections on Saturdays - hold #chronic BL LE wounds - follows with wound care - to have appointment 12/22. - wound care consulted while inpatient and recommended daily dressing changes. P t to follow-up with wound care within 1 week in outpatient after discharge #ELEUTERIO - continue CPAP at bedtime #hx DVTs on chronic enoxaparin - continue Lovenox #anxiety and opioid dependence - Followed by Dr. Gracia. - suboxone 2 mg daily, planned to be schedule qod ; will continue daily scheduling here - xanax tid scheduled - cont Seroquel and Celexa VTE ppx: Continue home lovenox Dispo: PCU Admission and Anticipated Discharge Date Admission Date: December 23, 2024 Supervising Physician Co-Signing Physician Notes I personally examined the patient and verified all rosario points of history and exam, discussed case, and agree with decision making with Dr Rowland Still with left-sided rib painnot really any better. Does not really feel any better. Vitals noted, in general she is awake and alert pleasant no distress. HEENT normocephalic atraumatic mucous membranes moist. Lungs overall fairly clear now without notable rales rhonchi or wheezes, she does have diminished air entry. Ongoing severe tenderness to palpation left lateral rib cage. CT scan obtained, results reviewedboth film and interpretation by radiology. Acute on chronic diastolic CHF (acute on chronic HFpEF)most likely this relates to sodium intake at home. Continuing to educate her on the same. Given her psychosocial and socioeconomic circumstances, it may be a little bit more difficult for her to find ways to stay less than 2000 mg of sodium per day and less than 500 mg of sodium per meal, but we will work together to try to give her guidance dietitian was consultedpatient declined their education, and whenever I discussed this with her she then noted she did no such thing. Continue to diurese Overall appears to be getting close to his euvolemic/dry as we can get her. At this point I am more suspicious that the breathing issues that remain are predominantly from the sensation of dyspnea from the rib cage p ain. Right shoulder pain Exam consistent with rotator cuff, x-ray only shows arthritisnot unexpected. Voltaren gel for now. PT as an outpatient left-sided rib cage/intercostal spasms has been stubborn. Given how tenuous her breathing is probably this makes her feel more short of breath- CT given her long and complicated medical history to ensure there was no underlying pathologyquite reassuring (did not use IV contrast given her anaphylactic IV contrast allergy, but also very low suspicion for PE given that she is chronically on therapeutic anticoagulation). Have tried OMT, tried mag IV, tried lidocaine patchnothing helping. Given that it is predominantly spastic, and diazepam tends to be a better muscle relaxant than alprazolamwill change from 0.5 alprazolam 3 times daily to 5 mg Valium 3 times daily. Hopefully this will help. Constipationenema or suppository as needed as she requested. Anticoagulated Subjective Patient this morning stated that she still feels tightness with breathing. Patient reports that last night that when she was laying down trying to sleep, she couldnt get a breath out. She was also saying the rib pain is still there. Patient denied feeling like she was back to her normal breathing. She said the tightness is still there when breathing. Patient expressed annoyance at food this morning. Patient was able to eat her whole meal but felt like the food was "bland". Patient denies N/V/D. Review of Systems Review of Systems: as per subjective HPI Physical Exam Constitutional: WD/WN, vitals as above Respiratory: Auscultation: + diminished lung sounds Cardiovascular: Rate/Rhythm: regular rate and regular rhythm Heart Sounds: normal S1 and normal S2 Extremities: + edema (R. leg 1+, L. leg trace-1+. ) Skin: Trauma: + evidence of skin trauma (leg wounds B/L) Psychiatric: Eye Contact: good eye contact Speech: normal rate/rhythm/volume of speech Thought Process: linear/logical thought process Results & Data Results & Data Vital Signs (Past 12 Hours) Vital Signs Temp Pulse Pulse Resp BP Pulse Ox Pulse Ox 12/25/24 08:03 36.3 C L 90 20 115/73 94 12/25/24 07:39 108 H 17 93 12/25/24 02:12 89 13 94 12/25/24 00:22 96 H 13 93 12/24/24 23:49 36.9 C 100 H 18 114/77 92 12/24/24 23:00 98 O2 Del Method O2 Del Method O2 Flow Rate FiO2 12/25/24 08:03 Room Air 12/25/24 07:39 Room Air 21 12/25/24 02:12 2 12/25/24 00:22 2 12/24/24 23:49 Room Air 12/24/24 23:00 Room Air
[2024-12-25 09:29] LABS: Anion Gap 7.0 (3-11); Blood Urea Nitrogen 28.0 mg/dl (6-23); Calcium 9.1 mg/dl (8.6-10.3); Carbon Dioxide 32.0 mmol/L (21-32); Chloride 96.0 mmol/L (98-107); Creatinine Clr Calc Pharmacy 70.5 ml/min; Glucose 127.0 mg/dl (70-99(Fasting)); Potassium 3.1 mmol/L (3.5-5.1); Sodium 135.0 mmol/L (136-145)
[2024-12-25] MEDS: LIDOCAINE 5% 1 PATCH TD SCH (10:11)
[2024-12-25] MEDS: SOD PHOSPHATE/SOD BIPHOSPHATE ENEMA 132 ML BTL PR PRN (11:45)
--- NOTE | 2024-12-25 13:57 | CT Scan Report ---
EXAM: CT of the chest without contrast EXAM REASON: Refractory left pleuritic chest pain and dyspnea COMPARISON: 12/17/2024 TECHNIQUE: Multiple transaxial images of the chest were obtained without contrast. The images were also reconstructed in coronal and sagittal planes. FINDINGS: There are curvilinear opacities noted bilaterally in the lower lung zones. There is ill-defined groundglass consolidation noted posteriorly in the lower lung zones. There are no significant pleural or pericardial effusions. No suspicious nodules or masses are apparent. No endobronchial lesions are seen.The heart and great vessels are within normal limits. There are no pathologically enlarged lymph nodes. No acute bony abnormalities are identified. IMPRESSION: 1. Curvilinear basilar opacities most likely represents atelectasis. 2. Groundglass lower lung zone opacities most likely represents atelectasis. Electronically signed by Maxi Head 12-25-2024 13:56 PM
--- NOTE | 2024-12-25 14:30 | Billing Data ---
Date of Service December 25, 2024 Coding Level of Care Code 51111 SUB INP/OBS CARE MIN
[2024-12-26 08:23] LABS: Anion Gap 10.0 (3-11); Blood Urea Nitrogen 27.0 mg/dl (6-23); Calcium 9.4 mg/dl (8.6-10.3); Carbon Dioxide 32.0 mmol/L (21-32); Chloride 94.0 mmol/L (98-107); Creatinine Clr Calc Pharmacy 66.3 ml/min; Glucose 126.0 mg/dl (70-99(Fasting)); Potassium 3.0 mmol/L (3.5-5.1); Sodium 136.0 mmol/L (136-145)
[2024-12-26] MEDS: LIDOCAINE 5% 1 PATCH TD STA (11:39)
--- NOTE | 2024-12-26 11:45 | Hospitalist Progress Note ---
Date of Service December 26, 2024 Assessment & Plan (1) Acute CHF (congestive heart failure): (2) HARRIS (dyspnea on exertion): (3) Elevated troponin: (4) Asthma-COPD overlap syndrome: Plan 64 y/o with chronically poorly controlled asthma/COPD overlap, chronic HFpEF, ELEUTERIO, DM2, anxiety, former opioid dependence, multiple myeloma s/p bone marrow transplant. Patient is being admitted for acute CHF exacerbation. #acute HFpEF - patient appearing relatively comfortable on exam today. Still appearing mildly hypervolemic with LE edema. She's saturating well on room air, however there are still rales present in the bases of the lungs bilaterally. - echocardiogram 08/18 showed EF 60 to 65%, mild RVH, moderate LVH. [facility] records reviewed, no recent echo within EMR. CXR showed mild congestive changes similar to previous. BNP 104. - repeat echo showing EF >70% without regional wall motion abnormalities. Moderate concentric LVH. - on Bumex 4 Mg daily at home, takes 8mg prn for increase in edema. Patient's volume status is improving from when she first arrived, Will continue same home dose of Bumex 4mg and stop the IV Bumex as she is improving on the volume overload. Will also monitor blood pressure & kidney function. Cr 0.83 this morning - discussed with patient the importance of diet and salt intake to help prevent further fluid overload results in CHF exacerbation. Will continue patient on low-sodium heart-healthy diet - Strict I&O monitoring - Daily weights - promote leg elevation, defer TEDs with wounds - oxygen as needed for O2 <90% - BMP qAM #Hypokalemia: - K level 3L today possibly because of ongoing diuresis. - Will give 40meq K stat and 40meq K after 2 hrs. -Will monitor AM. #elevated troponin - chronic elevated, however mildly increased from baseline likely 2/2 demand ischemia with above. Troponin 29.1 on admission and has downtrended. Repeat trop 12/22 now 21.2. - patient on telemetry monitoring - overnight sinus tach 90s-110s, no actionable events ; this morning NSR rate of 90s. No actionable events. Continue telemetry - EKG as needed for chest pain #shoulder pain / back pain - patient having right-sided shoulder pain, likely due to supraspinatus pathology, however given patient multiple myeloma hx, XR right shoulder completed yesterday showing osteoarthritic changes, otherwise no other acute patohlogy. - patient also noting left sided back/rib pain that started after a fall last week, however more bothersome this morning and had interfered with sleep. Likely muscle spasm, given mechanism of injury. - Was given Mg 4mg IV ordered to help with muscle spasm. This does not seem to have helped. Will continue lidocaine patches, declined it before. - voltren gel qid prn for right shoulder and other arthritis pain #COPD/Asthma - Recently treated for acute COPD exacerbation x 2 over the past month with hospitalization, currently stable/no exacerbation. Has 2 to 3 L oxygen as needed at home. Saturating well on room air. - continue home inhalers - O2 as needed -Chest Ct on 12/25 showed curvilinear basilar opacities most likely represents atelectasis. #leukocytosis - 2/2 chronic steroid use, improved from baseline. - WBC increased to 12.15 on 12/24, but went back down to 11.70. Patient remains afebrile and hemodynamically stable. This increase could be due to a stress response from the pain. - CBC w/ diff qAM #DM2-last HgbA1c 9.0% - Continue basal bolus + SS insulin - glargine reduced from 60 u QM to 45 Q AM with tight diet control - SSI with target BSG range 110-140mg/dL, CF 20, carb ratio 5 - She is on Mounjaro as an outpatient - injections on Saturdays - hold #chronic BL LE wounds - follows with wound care - to have appointment 12/22. - wound care consulted while inpatient and recommended daily dressing changes. Pt to follow-up with wound care within 1 week in outpatient after discharge #ELEUTERIO - continue CPAP at bedtime #hx DVTs on chronic enoxaparin - continue Lovenox #anxiety and opioid dependence - Followed by Dr. Gracia. - suboxone 2 mg daily, planned to be schedule qod ; will continue daily scheduling here - xanax tid scheduled as she was not getting relief from Valium. - cont Seroquel and Celexa VTE ppx: Continue home lovenox Dispo: PCU Admission and Anticipated Discharge Date Admission Date: December 23, 2024 Supervising Physician Co-Signing Physician Notes ATTESTATION I also saw the patient and confirmed rosario portions of the history and exam. I agree with the impression and plan in the resident documentation, and as summarized below. Seated in bedside chair. Complaints of left sided costal pain. She relates this to a fall at the bus stop in which the person helping her get up from her fall subsequently fell on top of her. EXAM VS as noted; 975 on room air Lungs decreased bases (she has pain with deep inspiration) CV regular MSK upon palpation, pain left lateral ribs DATA Labs K 3.0 BUN 27 Cr 0.83 IMPRESSION & PLAN Acute on chronic diastolic CHF (acute on chronic HFpEF) Improving clinically and radiographically Return to home diuretic dosing in AM 12/27 Left-sided rib cage/intercostal spasms May be related to trauma as noted above CT and CXR did not show bony injury Add topical lidocaine Hypokalemia Likely secondary to diuresis Replete and recheck in AM Additional per resident documentation Subjective Patient this morning stated that she still feels tightness with breathing. Patient reports that last night that when she was laying down trying to sleep, she couldnt get a breath out. She was also saying the rib pain is still there. Patient denied feeling like she was back to her normal breathing. She said the tightness is still there when breathing. Patient denies N/V/D. Review of Systems Review of Systems: as per subjective HPI Physical Exam Constitutional: WD/WN, vitals as above Respiratory: Auscultation: + diminished lung sounds Cardiovascular: Rate/Rhythm: regular rate and regular rhythm Heart Sounds: normal S1 and normal S2 Extremities: + edema (R. leg 1+, L. leg trace-1+. ) Skin: Trauma: + evidence of skin trauma (leg wounds B/L) Psychiatric: Eye Contact: good eye contact Speech: normal rate/rhythm/volume of speech Thought Process: linear/logical thought process Results & Data Results & Data Vital Signs (Past 12 Hours) Vital Signs Temp Pulse Pulse Resp BP Pulse Ox O2 Del Method 12/26/24 08:40 36.3 C L 99 H 17 135/86 97 Room Air 12/26/24 08:00 Room Air, CPAP 12/26/24 07:10 87 16 95 Room Air 12/26/24 02:00 81 13 94 12/26/24 00:54 91 H 18 93 FiO2 12/26/24 08:40 12/26/24 08:00 12/26/24 07:10 12/26/24 02:00 21 12/26/24 00:54 21
[2024-12-26] MEDS: POTASSIUM CHLORIDE 10 MEQ TABCR PO STA (13:39)
[2024-12-26] MEDS: POTASSIUM CHLORIDE 10 MEQ TABCR PO ONE (16:20)
[2024-12-26] MEDS ORDERED: POTASSIUM CHLORIDE 10 MEQ TABCR PO ONE (18:00)
[2024-12-26] MEDS ORDERED: Nursing to Pharmacy Communication SCH (18:15)
[2024-12-26] MEDS: REMOVE LIDODERM PATCH SCH (23:01)
[2024-12-27 06:56] LABS: Hematocrit (blood only) 38.9 % (37.0-47.0); Hemoglobin 12.5 g/dl (12.0-16.0); Mean Corpuscular Hemoglobin 27.6 pg (25.0-34.0); Mean Corpuscular Volume 85.9 fL (80.0-100.0); Platelet Count 265 K/uL (130-400); RDW Standard Deviation 58.6 fL (36.4-46.3); Red Blood Count 4.53 M/uL (4.20-5.40); White Blood Count 14.14 K/ul (4.8-10.8)
[2024-12-27 07:11] LABS: Anion Gap 10.0 (3-11); Blood Urea Nitrogen 29.0 mg/dl (6-23); Calcium 9.0 mg/dl (8.6-10.3); Carbon Dioxide 28.0 mmol/L (21-32); Chloride 97.0 mmol/L (98-107); Creatinine Clr Calc Pharmacy 58.7 ml/min; Glucose 221.0 mg/dl (70-99(Fasting)); Potassium 3.2 mmol/L (3.5-5.1); Sodium 135.0 mmol/L (136-145)
--- NOTE | 2024-12-27 10:55 | Hospitalist Progress Note ---
Date of Service December 27, 2024 Assessment & Plan (1) Acute CHF (congestive heart failure): (2) HARRIS (dyspnea on exertion): (3) Elevated troponin: (4) Asthma-COPD overlap syndrome: Plan 64 y/o with chronically poorly controlled asthma/COPD overlap, chronic HFpEF, ELEUTERIO, DM2, anxiety, former opioid dependence, multiple myeloma s/p bone marrow transplant. Patient is being admitted for acute CHF exacerbation. #acute HFpEF - patient appearing relatively comfortable on exam today. Still appearing mildly hypervolemic with LE edema. She's saturating well on room air, however there are still rales present in the bases of the lungs bilaterally. - echocardiogram 08/18 showed EF 60 to 65%, mild RVH, moderate LVH. [facility] records reviewed, no recent echo within EMR. CXR showed mild congestive changes similar to previous. BNP 104. - repeat echo showing EF >70% without regional wall motion abnormalities. Moderate concentric LVH. - on Bumex 4 Mg daily at home, takes 8mg prn for increase in edema. Patient's volume status is improving from when she first arrived, Will continue same home dose of Bumex 4mg and stop the IV Bumex as she is improving on the volume overload. Will also monitor blood pressure & kidney function. Cr 0.94 this morning - discussed with patient the importance of diet and salt intake to help prevent further fluid overload results in CHF exacerbation. Will continue patient on low-sodium heart-healthy diet - Strict I&O monitoring - Daily weights - promote leg elevation, defer TEDs with wounds - oxygen as needed for O2 <90% - BMP qAM -Consider D/C tomorrow. #Hypokalemia: - K level 3.2 today possibly because of ongoing diuresis. - Will give 40meq K stat and 40meq K after 2 hrs. -Will monitor AM. #elevated troponin - chronic elevated, however mildly increased from baseline likely 2/2 demand ischemia with above. Troponin 29.1 on admission and has downtrended. Repeat trop 12/22 now 21.2. - patient on telemetry monitoring - overnight sinus tach 90s-110s, no actionable events ; this morning NSR rate of 90s. No actionable events. Continue telemetry - EKG as needed for chest pain #shoulder pain / back pain - patient having right-sided shoulder pain, likely due to supraspinatus pathology, however given patient multiple myeloma hx, XR right shoulder completed yesterday showing osteoarthritic changes, otherwise no other acute patohlogy. - patient also noting left sided back/rib pain that started after a fall last week, however more bothersome this morning and had interfered with sleep. Likely muscle spasm, given mechanism of injury. - Was given Mg 4mg IV ordered to help with muscle spasm. This does not seem to have helped. Will continue lidocaine patches, declined it before. - voltren gel qid prn for right shoulder and other arthritis pain #COPD/Asthma - Recently treated for acute COPD exacerbation x 2 over the past month with hospitalization, currently stable/no exacerbation. Has 2 to 3 L oxygen as needed at home. Saturating well on room air. - continue home inhalers - O2 as needed -Chest Ct on 12/25 showed curvilinear basilar opacities most likely represents atelectasis. #leukocytosis - 2/2 chronic steroid use, improved from baseline. - WBC increased to 12.15 on 12/24, but went back down to 11.70. Patient remains afebrile and hemodynamically stable. This increase could be due to a stress response from the pain. - CBC w/ diff qAM #DM2-last HgbA1c 9.0% - Continue basal bolus + SS insulin - glargine reduced from 60 u QM to 45 Q AM with tight diet control - SSI with target BSG range 110-140mg/dL, CF 20, carb ratio 5 - She is on Mounjaro as an outpatient - injections on Saturdays - hold #chronic BL LE wounds - follows with wound care - to have appointment 12/22. - wound care consulted while inpatient and recommended daily dressing changes. Pt to follow-up with wound care within 1 week in outpatient after discharge #ELEUTERIO - continue CPAP at bedtime #hx DVTs on chronic enoxaparin - continue Lovenox #anxiety and opioid dependence - Followed by Dr. Gracia. - suboxone 2 mg daily, planned to be schedule qod ; will continue daily scheduling here - Continue xanax tid , before was given Valium. - cont Seroquel and Celexa VTE ppx: Continue home lovenox Dispo: PCU Admission and Anticipated Discharge Date Admission Date: December 23, 2024 Supervising Physician Co-Signing Physician Notes ATTESTATION I also saw the patient and confirmed rosario portions of the history and exam. I agree with the impression and plan in the resident documentation, and as summarized below. Feeling somewhat better - mostly bothered by left sided (lateral) chest wall pain. EXAM VS as noted Lungs decreased bases, clear apices CV regular MSK upon palpation, pain left lateral ribs similar to yesterday DATA Labs K 3.2 BUN 29 Cr 0.94 WBC 14.14 IMPRESSION & PLAN Acute on chronic diastolic CHF (acute on chronic HFpEF) Improving clinically and radiographically Return to home diuretic dosing in AM 12/27 Left-sided rib cage/intercostal spasms CT and CXR did not show bony injury Conservative measures This should improve with time Hypokalemia Secondary to diuresis Replete and recheck in AM Additional per resident documentation Subjective Patient this morning stated that she still feels tightness with breathing. Patient reports at night that when she lays down trying to sleep, she couldnt get a breath out. She was also saying the rib pain is still there. Patient denied feeling like she was back to her normal breathing. She said the tightness is still there when breathing. Patient denies N/V/D. Review of Systems Review of Systems: as per subjective HPI Physical Exam Constitutional: WD/WN, vitals as above Respiratory: Auscultation: + diminished lung sounds Cardiovascular: Rate/Rhythm: regular rate and regular rhythm Heart Sounds: normal S1 and normal S2 Extremities: + edema (R. leg 1+, L. leg trace-1+. ) Skin: Trauma: + evidence of skin trauma (leg wounds B/L) Psychiatric: Eye Contact: good eye contact Speech: normal rate/rhythm/volume of speech Thought Process: linear/logical thought process Results & Data Results & Data Vital Signs (Past 12 Hours) Vital Signs Temp Pulse Pulse Resp BP Pulse Ox O2 Del Method 12/27/24 07:42 37.1 C 98 H 16 119/84 94 Room Air 12/27/24 06:54 98 H 16 97 Room Air 12/27/24 02:50 92 H 15 93 12/26/24 23:57 90 16 94
[2024-12-27] MEDS: POTASSIUM CHLORIDE CRTAB 20 MEQ TABCR PO ONE ×2 (12:02→15:18)
[2024-12-28 07:59] LABS: Anion Gap 9.0 (3-11); Blood Urea Nitrogen 29.0 mg/dl (6-23); Calcium 9.5 mg/dl (8.6-10.3); Carbon Dioxide 29.0 mmol/L (21-32); Chloride 95.0 mmol/L (98-107); Creatinine Clr Calc Pharmacy 72.6 ml/min; Glucose 173.0 mg/dl (70-99(Fasting)); Potassium 4.1 mmol/L (3.5-5.1); Sodium 133.0 mmol/L (136-145)
--- NOTE | 2024-12-28 09:39 | Hospitalist Progress Note ---
Date of Service December 28, 2024 Assessment & Plan (1) Acute CHF (congestive heart failure): (2) HARRIS (dyspnea on exertion): (3) Elevated troponin: (4) Asthma-COPD overlap syndrome: Plan 64 y/o with chronically poorly controlled asthma/COPD overlap, chronic HFpEF, ELEUTERIO, DM2, anxiety, former opioid dependence, multiple myeloma s/p bone marrow transplant. Patient is being admitted for acute CHF exacerbation. #acute HFpEF - patient appearing relatively comfortable on exam today. Still appearing mildly hypervolemic with LE edema. She's saturating well on room air, however there are still rales present in the bases of the lungs bilaterally. - echocardiogram 08/18 showed EF 60 to 65%, mild RVH, moderate LVH. [facility] records reviewed, no recent echo within EMR. CXR showed mild congestive changes similar to previous. BNP 104. - repeat echo showing EF >70% without regional wall motion abnormalities. Moderate concentric LVH. - on Bumex 4 Mg daily at home, takes 8mg prn for increase in edema. Patient's volume status is improving from when she first arrived, Will continue same home dose of Bumex 4mg and stop the IV Bumex as she is improving on the volume overload. Will also monitor blood pressure & kidney function. Cr 0.76 this morning - discussed with patient the importance of diet and salt intake to help prevent further fluid overload results in CHF exacerbation. Will continue patient on low-sodium heart-healthy diet - Strict I&O monitoring - Daily weights - promote leg elevation, defer TEDs with wounds - oxygen as needed for O2 <90% - [facility] qAM -Consider D/C tomorrow. #Hypokalemia: - K level 4.1 today possibly because of ongoing diuresis. -Will monitor AM. #elevated troponin - chronic elevated, however mildly increased from baseline likely 2/2 demand ischemia with above. Troponin 29.1 on admission and has downtrended. Repeat trop 12/22 now 21.2. - patient on telemetry monitoring - overnight sinus tach 90s-110s, no actionable events ; this morning NSR rate of 90s. No actionable events. Continue telemetry - EKG as needed for chest pain #shoulder pain / back pain - patient having right-sided shoulder pain, likely due to supraspinatus pathology, however given patient multiple myeloma hx, XR right shoulder completed yesterday showing osteoarthritic changes, otherwise no other acute patohlogy. - patient also noting left sided back/rib pain that started after a fall last week, however more bothersome this morning and had interfered with sleep. Likely muscle spasm, given mechanism of injury. - Was given Mg 4mg IV ordered to help with muscle spasm. This does not seem to have helped. Will continue lidocaine patches, declined it before. - voltren gel qid prn for right shoulder and other arthritis pain #COPD/Asthma - Recently treated for acute COPD exacerbation x 2 over the past month with hospitalization, currently stable/no exacerbation. Has 2 to 3 L oxygen as needed at home. Saturating well on room air. - continue home inhalers - O2 as needed -Chest Ct on 12/25 showed curvilinear basilar opacities most likely represents atelectasis. #leukocytosis - 2/2 chronic steroid use, improved from baseline. - WBC increased to 12.15 on 12/24, but went back down to 11.70. Patient remains afebrile and hemodynamically stable. This increase could be due to a stress response from the pain. - CBC w/ diff qAM #DM2-last HgbA1c 9.0% - Continue basal bolus + SS insulin - glargine reduced from 60 u QM to 45 Q AM with tight diet control - SSI with target BSG range 110-140mg/dL, CF 20, carb ratio 5 - She is on Mounjaro as an outpatient - injections on Saturdays - hold #chronic BL LE wounds - follows with wound care - to have appointment 12/22. - wound care consulted while inpatient and recommended daily dressing changes. Pt to follow-up with wound care within 1 week in outpatient after discharge #ELEUTERIO - continue CPAP at bedtime #hx DVTs on chronic enoxaparin - continue Lovenox #anxiety and opioid dependence - Followed by Dr. Gracia. - suboxone 2 mg daily, planned to be schedule qod ; will continue daily scheduling here - Continue xanax tid , before was given Valium. - cont Seroquel and Celexa VTE ppx: Continue home lovenox Dispo: PCU Admission and Anticipated Discharge Date Admission Date: December 23, 2024 Supervising Physician Co-Signing Physician Notes ATTESTATION I also saw the patient and confirmed rosario portions of the history and exam. I agree with the impression and plan in the resident documentation, and as summarized below. About the same as yesterday. She does not feel ready/safe to go home today due to decreased level of endurance versus her baseline. She worked with PT this morning and now has an ice pack and wrap applied to the left lateral rib cage. EXAM VS as noted Lungs decreased bases, clear otherwise CV regular - rate mid 80 MSK upon palpation, pain left lateral ribs similar to previous DATA Labs K 4.1 BUN 29 Cr 0.76 IMPRESSION & PLAN Acute on chronic diastolic CHF (acute on chronic HFpEF) Nearing or at baseline Resumed home diuretic dosing Increase activity Anticipate d/c in AM Left-sided rib cage/intercostal spasms Check dedicated rib film today Conservative measures This should improve with time Hypokalemia Resolved Additional per resident documentation Subjective Patient this morning stated that she still feels tightness with breathing. Patient reports at night that when she lays down trying to sleep, she couldnt get a breath out. She was also saying the rib pain is still there. Patient denied feeling like she was back to her normal breathing. She said the tightness is still there when breathing. Patient denies N/V/D. Review of Systems Review of Systems: as per subjective HPI Physical Exam Constitutional: WD/WN, vitals as above Respiratory: Auscultation: + diminished lung sounds Cardiovascular: Rate/Rhythm: regular rate and regular rhythm Heart Sounds: normal S1 and normal S2 Extremities: + edema (R. leg 1+, L. leg trace-1+. ) Skin: Trauma: + evidence of skin trauma (leg wounds B/L) Psychiatric: Eye Contact: good eye contact Speech: normal rate/rhythm/volume of speech Thought Process: linear/logical thought process Results & Data Results & Data Vital Signs (Past 12 Hours) Vital Signs Temp Pulse Pulse Pulse Resp BP Pulse Ox 12/28/24 08:52 36.8 C 94 H 101 H 18 126/84 100 12/28/24 07:58 12/28/24 07:28 81 18 95 12/28/24 03:18 93 H 15 94 12/28/24 00:09 36.8 C 88 18 122/77 93 12/27/24 23:59 90 14 94 12/27/24 23:07 36.6 C 107 H 20 111/66 98 O2 Del Method 12/28/24 08:52 Room Air 09/03/25 07:58 Room Air 12/28/24 07:28 Room Air 12/28/24 03:18 12/28/24 00:09 Room Air 12/27/24 23:59 12/27/24 23:07 Room Air
--- NOTE | 2024-12-28 16:21 | XRay Report ---
Chest radiograph, one view, left ribs 4 views History: Chest pain Comparison: 12/25/2024 Findings: Single AP view of the chest performed. Small focal area of atelectasis or scarring at the right mid/lower lobe. No focal consolidation or pleural effusion. No pneumothorax. The cardiomediastinal silhouette is within normal limits. Normal pulmonary vascularity. No evidence for lymphadenopathy. No visualized bony or soft tissue abnormality. Impression: Normal chest radiograph. No visualized left rib abnormality. Electronically signed by Nelson Mcnair 12-28-2024 4:21 PM
[2024-12-29] MEDS: LANTUS PER UNIT CHARGE SQ SCH (08:12)
[2024-12-29 08:54] LABS: Anion Gap 7.0 (3-11); Blood Urea Nitrogen 31.0 mg/dl (6-23); Calcium 9.4 mg/dl (8.6-10.3); Carbon Dioxide 32.0 mmol/L (21-32); Chloride 94.0 mmol/L (98-107); Creatinine Clr Calc Pharmacy 66.1 ml/min; Glucose 168.0 mg/dl (70-99(Fasting)); Potassium 3.8 mmol/L (3.5-5.1); Sodium 133.0 mmol/L (136-145)
[2024-12-29] MEDS: BUMETANIDE 4 MG in SYRINGE 0 ML IV SCH (09:54)
--- NOTE | 2024-12-29 11:45 | Hospitalist Progress Note ---
Date of Service December 29, 2024 Assessment & Plan (1) Acute CHF (congestive heart failure): (2) HARRIS (dyspnea on exertion): (3) Elevated troponin: (4) Asthma-COPD overlap syndrome: Plan 64 y/o with chronically poorly controlled asthma/COPD overlap, chronic HFpEF, ELEUTERIO, DM2, anxiety, former opioid dependence, multiple myeloma s/p bone marrow transplant. Patient is being admitted for acute CHF exacerbation. #acute HFpEF - patient appearing relatively comfortable on exam today. Still appearing mildly hypervolemic with LE edema. She's saturating well on room air, however there are still rales present in the bases of the lungs bilaterally. - echocardiogram 08/18 showed EF 60 to 65%, mild RVH, moderate LVH. [facility] records reviewed, no recent echo within EMR. CXR showed mild congestive changes similar to previous. BNP 104. - repeat echo showing EF >70% without regional wall motion abnormalities. Moderate concentric LVH. - on Bumex 4 Mg daily at home, takes 8mg prn for increase in edema. Patient's volume status is improving from when she first arrived, Will continue same home dose of Bumex 4mg and stop the IV Bumex as she is improving on the volume overload. Will also monitor blood pressure & kidney function. Cr 0.76 this morning - discussed with patient the importance of diet and salt intake to help prevent further fluid overload results in CHF exacerbation. Will continue patient on low-sodium heart-healthy diet - Strict I&O monitoring - Daily weights - promote leg elevation, defer TEDs with wounds - oxygen as needed for O2 <90% - [facility] qAM -Consider D/C tomorrow. #Hypokalemia: - K level 4.1 today possibly because of ongoing diuresis. -Will monitor AM. #elevated troponin - chronic elevated, however mildly increased from baseline likely 2/2 demand ischemia with above. Troponin 29.1 on admission and has downtrended. Repeat trop 12/22 now 21.2. - patient on telemetry monitoring - overnight sinus tach 90s-110s, no actionable events ; this morning NSR rate of 90s. No actionable events. Continue telemetry - EKG as needed for chest pain #shoulder pain / back pain - patient having right-sided shoulder pain, likely due to supraspinatus pathology, however given patient multiple myeloma hx, XR right shoulder completed yesterday showing osteoarthritic changes, otherwise no other acute patohlogy. - patient also noting left sided back/rib pain that started after a fall last week, however more bothersome this morning and had interfered with sleep. Likely muscle spasm, given mechanism of injury. - Was given Mg 4mg IV ordered to help with muscle spasm. This does not seem to have helped. Will continue lidocaine patches, declined it before. - voltren gel qid prn for right shoulder and other arthritis pain #COPD/Asthma - Recently treated for acute COPD exacerbation x 2 over the past month with hospitalization, currently stable/no exacerbation. Has 2 to 3 L oxygen as needed at home. Saturating well on room air. - continue home inhalers - O2 as needed -Chest Ct on 12/25 showed curvilinear basilar opacities most likely represents atelectasis. #leukocytosis - 2/2 chronic steroid use, improved from baseline. - WBC increased to 12.15 on 12/24, but went back down to 11.70. Patient remains afebrile and hemodynamically stable. This increase could be due to a stress response from the pain. - CBC w/ diff qAM #DM2-last HgbA1c 9.0% - Continue basal bolus + SS insulin - glargine reduced from 60 u QM to 45 Q AM with tight diet control - SSI with target BSG range 110-140mg/dL, CF 20, carb ratio 5 - She is on Mounjaro as an outpatient - injections on Saturdays - hold #chronic BL LE wounds - follows with wound care - to have appointment 12/22. - wound care consulted while inpatient and recommended daily dressing changes. Pt to follow-up with wound care within 1 week in outpatient after discharge #ELEUTERIO - continue CPAP at bedtime #hx DVTs on chronic enoxaparin - continue Lovenox #anxiety and opioid dependence - Followed by Dr. Gracia. - suboxone 2 mg daily, planned to be schedule qod ; will continue daily scheduling here - Continue xanax tid , before was given Valium. - cont Seroquel and Celexa VTE ppx: Continue home lovenox Dispo: PCU Admission and Anticipated Discharge Date Admission Date: December 23, 2024 Supervising Physician Co-Signing Physician Notes ATTESTATION I also saw the patient and confirmed rosario portions of the history and exam. I agree with the impression and plan in the resident documentation, and as summarized below. About the same as yesterday. She again tells me that she does not feel ready/safe to go home today. Discussed that we could provide medication to help with her left sided muscular pain. She also tells me that she would not be able to get a ride, and her sister's house would be locked so she would would have to sit outside for a period of time until her sister got home. EXAM Vital signs stable Lungs decreased bases, clear otherwise CV regular MSK pain left lateral ribs similar to previous, upon palpation DATA Labs K 4.1 BUN 29 Cr 0.76 imaging Left sided rib films negative IMPRESSION & PLAN Acute on chronic diastolic CHF (acute on chronic HFpEF) At baseline Continue home diuretic dosing Increase activity Anticipate d/c in AM Left-sided rib cage/intercostal spasms Ribs films unremarkable Conservative measures This should improve with time Hypokalemia Resolved Additional per resident documentation Subjective Patient this morning stated that she still feels tightness with breathing. Patient reports at night that when she lays down trying to sleep, she couldnt get a breath out. She was also saying the rib pain is still there. Patient denied feeling like she was back to her normal breathing. She said the tightness is still there when breathing. Patient denies N/V/D. Review of Systems Review of Systems: as per subjective HPI Physical Exam Constitutional: WD/WN, vitals as above Respiratory: Auscultation: + diminished lung sounds Cardiovascular: Rate/Rhythm: regular rate and regular rhythm Heart Sounds: normal S1 and normal S2 Extremities: + edema (R. leg 1+, L. leg trace-1+. ) Skin: Trauma: + evidence of skin trauma (leg wounds B/L) Psychiatric: Eye Contact: good eye contact Speech: normal rate/rhythm/volume of speech Thought Process: linear/logical thought process Results & Data Results & Data Vital Signs (Past 12 Hours) Vital Signs Temp Pulse Pulse Resp BP Pulse Ox O2 Del Method 12/29/24 07:33 Room Air 12/29/24 07:18 92 H 18 95 Room Air 12/29/24 07:01 36.5 C 93 H 20 132/88 96 Room Air 12/29/24 03:07 12 95 12/29/24 00:04 93 H 14 95 FiO2 12/29/24 07:33 12/29/24 07:18 12/29/24 07:01 12/29/24 03:07 21 12/29/24 00:04 21 Resident Activity Tracking Resident Involvement: Resident Care Provided Care Provided: Adult Hospital Medicine
[2024-12-30 08:04] VITALS: O2SAT 98
[2024-12-30 11:35] LABS: Hematocrit (blood only) 43.2 % (37.0-47.0); Hemoglobin 13.4 g/dl (12.0-16.0); Mean Corpuscular Hemoglobin 27.0 pg (25.0-34.0); Mean Corpuscular Volume 86.9 fL (80.0-100.0); Platelet Count 254 K/uL (130-400); RDW Standard Deviation 60.2 fL (36.4-46.3); Red Blood Count 4.97 M/uL (4.20-5.40); White Blood Count 15.54 K/ul (4.8-10.8)
[2024-12-30 11:53] VITALS: PULSE 107; RESP 15; TEMP 98.2
[2024-12-30 11:53] LABS: Anion Gap 8.0 (3-11); Blood Urea Nitrogen 27.0 mg/dl (6-23); Calcium 9.2 mg/dl (8.6-10.3); Carbon Dioxide 32.0 mmol/L (21-32); Chloride 93.0 mmol/L (98-107); Creatinine Clr Calc Pharmacy 67.5 ml/min; Glucose 180.0 mg/dl (70-99(Fasting)); Potassium 3.1 mmol/L (3.5-5.1); Sodium 133.0 mmol/L (136-145)
--- NOTE | 2024-12-30 12:56 | Discharge Summary ---
Date of Service December 30, 2024 Admission HPI Per Admitting Provider 64 y/o with chronically poorly controlled asthma/COPD overlap, chronic HFpEF, ELEUTERIO, DM2, anxiety, former opioid dependence, multiple myeloma s/p bone marrow transplant. Patient is being admitted for acute CHF exacerbation. Patient seen at bedside. She stated over the weekend she noticed that she was retaining more fluid in her bilateral lower extremity and arms, today she noticed it even in her face. She has also had more dyspnea on exertion. She saw cardiology for a vascular ultrasound on Thursday she did show some insufficiency however does not meet criteria for endovenous ablation. While she was there she tried to make an appointment with CHF clinic, her PCP, her respiratory given her fluid retention and dyspnea. They were able to get a hold of the CHF clinic who told her to take extra Bumex but they were not able to fit her in. She came in to the ED for concern of not having outpatient follow-up. she takes 4 Mg of Bumex daily at baseline, she took 8 Mg of Bumex yesterday and 6 Mg of Bumex today. She noted she had decreased urine output today. She has been trying to limit her fluid intake. She denies any chest pain or cough. She does have musculoskeletal pain has had issues sleeping recently. She is to follow-up with wound care in the morning for her chronic Wounds. She has not used any of her as needed oxygen at home recently, she did try nebulizer which did not help. She continues to use CPAP at bedtime and is due for her evening medications. Admission Exam Per Admitting Provider Constitutional: Patient appears in no acute distress. HENT: Head: Normocephalic and atraumatic. Eyes: EOMI, PERRL Mouth/Throat: Mucous membranes moist. Neck: Trachea midline. Neck supple. Cardiovascular: Tachycardic with regular rhythm. No murmurs, rubs or gallops. Intact distal pulses. Pulmonary/Chest: No respiratory distress. Breath sounds clear and equal bilaterally. Expiratory wheezes bilaterally. Conversationally dyspneic. Abdominal: Abdomen soft, no tenderness, rebound or guarding. Musculoskeletal: No edema, tenderness or deformity noted. Skin: Warm and dry. No rash, erythema, pallor or cyanosis Psychiatric: Appropriate mood and affect for situation. Neurological: Alert and keenly responsive. CN II-XII grossly intact, moving all extremities equally and fully. Principal Diagnosis Acute HFpEF Discharge Exam Constitutional WD/WN, vitals as above Respiratory Auscultation: + diminished lung sounds Cardiovascular Rate/Rhythm: regular rate and regular rhythm Heart Sounds: normal S1 and normal S2 Extremities: + edema (R. leg 1+, L. leg trace-1+. ) Skin Trauma: + evidence of skin trauma (leg wounds B/L) Psychiatric Eye Contact: good eye contact Speech: normal rate/rhythm/volume of speech Thought Process: linear/logical thought process Discharge Data Allergies Allergy/AdvReac Type Severity Reaction Status Date / Time codeine Allergy Severe Anaphylaxis Verified 12/21/24 20:30 Iodinated Contrast Media Allergy Severe Anaphylaxis Verified 12/21/24 20:30 shellfish derived Allergy Severe Anaphylaxis Verified 12/21/24 20:30 pollen extracts Allergy Mild Congested Verified 12/21/24 20:30 iohexol Allergy Unknown CAN'T Verified 12/21/24 20:30 REMEMBER diphenhydramine AdvReac Severe Anxiety Verified 12/21/24 20:30 [From Benadryl] promethazine AdvReac Intermediate Anxiety Verified 12/21/24 20:30 Consultations 12/21/24 21:10 ED Decision to Admit Stat Ordered Studies 12/25/24 11:35 CT chest diagnostic wo con Routine Hospital Course (1) Acute CHF (congestive heart failure): (2) HARRIS (dyspnea on exertion): (3) Elevated troponin: (4) Asthma-COPD overlap syndrome: Plan 64 y/o with chronically poorly controlled asthma/COPD overlap, chronic HFpEF, ELEUTERIO, DM2, anxiety, former opioid dependence, multiple myeloma s/p bone marrow transplant. Patient is being admitted for acute CHF exacerbation. #acute HFpEF - patient appearing relatively comfortable on exam today. Still appearing mildly hypervolemic with LE edema. She's saturating well on room air, however there are still rales present in the bases of the lungs bilaterally. - echocardiogram 08/18 showed EF 60 to 65%, mild RVH, moderate LVH. [facility] records reviewed, no recent echo within EMR. CXR showed mild congestive changes similar to previous. BNP 104. - repeat echo showing EF >70% without regional wall motion abnormalities. Moderate concentric LVH. - on Bumex 4 Mg daily at home, takes 8mg prn for increase in edema. Patient's volume status is improving from when she first arrived, Will continue same home dose of Bumex 4mg and stop the IV Bumex as she is improving on the volume overload. Will also monitor blood pressure & kidney function. Cr 0.76 this morning - discussed with patient the importance of diet and salt intake to help prevent further fluid overload results in CHF exacerbation. Will continue patient on low-sodium heart-healthy diet - Strict I&O monitoring - Daily weights - promote leg elevation, defer TEDs with wounds - oxygen as needed for O2 <90%. -Continue same home dose of Bumex 4mg. #Hypokalemia: - Resolved #elevated troponin - chronic elevated, however mildly increased from baseline likely 2/2 demand ischemia with above. Troponin 29.1 on admission and has downtrended. Repeat trop 12/22 now 21.2. - patient on telemetry monitoring - overnight sinus tach 90s-110s, no actionable events ; this morning NSR rate of 90s. No actionable events. Continue telemetry - EKG as needed for chest pain #shoulder pain / back pain - patient having right-sided shoulder pain, likely due to supraspinatus pathology, however given patient multiple myeloma hx, XR right shoulder completed yesterday showing osteoarthritic changes, otherwise no other acute patohlogy. - patient also noting left sided back/rib pain that started after a fall last week, however more bothersome this morning and had interfered with sleep. Likely muscle spasm, given mechanism of injury. - Was given Mg 4mg IV ordered to help with muscle spasm. This does not seem to have helped. Will continue lidocaine patches, declined it before. - voltren gel qid prn for right shoulder and other arthritis pain #COPD/Asthma - Recently treated for acute COPD exacerbation x 2 over the past month with hospitalization, currently stable/no exacerbation. Has 2 to 3 L oxygen as needed at home. Saturating well on room air. - continue home inhalers - O2 as needed -Chest Ct on 12/25 showed curvilinear basilar opacities most likely represents atelectasis. #leukocytosis - 2/2 chronic steroid use, improved from baseline. - WBC increased to 12.15 on 12/24, but went back down to 11.70. Patient remains afebrile and hemodynamically stable. This increase could be due to a stress response from the pain. #DM2-last HgbA1c 9.0% - Continue basal bolus + SS insulin - glargine reduced from 60 u QM to 45 Q AM with tight diet control - SSI with target BSG range 110-140mg/dL, CF 20, carb ratio 5 - She is on Mounjaro as an outpatient - injections on Saturdays - hold #chronic BL LE wounds - follows with wound care - to have appointment 12/22. - wound care consulted while inpatient and recommended daily dressing changes. Pt to follow-up with wound care within 1 week in outpatient after discharge #ELEUTERIO - continue CPAP at bedtime #hx DVTs on chronic enoxaparin - continue Lovenox #anxiety and opioid dependence - Followed by Dr. Gracia. - suboxone 2 mg daily, planned to be schedule qod ; will continue daily scheduling here - Continue xanax tid , before was given Valium. - cont Seroquel and Celexa Total Time Total Time Spent Total Time Spent (In Minutes): see attending attestation Discharge Plan Discharge Items Patient Disposition: Home - Self-Care Reason For Visit: ACUTE CHF Discharge Diagnosis: Acute HFpEF Condition on Discharge: Fair Activity: Per Instructions section Non-emergency contact: Primary Care Provider Call non-emergency contact if: your symptoms worsen Follow-up/Referrals: Jonnie Dan MD [Physician] - Clifton Coats CRNP [Nurse Practitioner] - 01/13/25 2:00 pm Radha Barboza PA-C [Primary Care Provider] - Diet: Carb Consistent or DM2, Heart Healthy and Low Sodium (2gm) Addtl Attending Provider Instructions: Congestive Heart Failure: Discharge Instructions Congestive Heart Failure ؠ Congestive Heart Failure essentially means your heart is able to have a "traffic jam" of fluid that backs up into your lungs. ؠ Fluid in lungs, blocks up breathing space making you feel short of breath. ؠ In the hospital, our job is to get the fluid off so that you are able to breathe better, and then get you back on track with medication and lifestyle adjustments to keep the traffic jam from happening again. Salt (Sodium) ؠ About 90% of people admitted to the hospital with fluid back up into the lungs get there because of too much salt in their diet. ؠ The way our kidneys work: when you take a small amount of sodium, your kidneys hold onto a small amount of water. When you take a large amount of sodium, your kidneys hold onto a large amount of water. When this happens, your blood vessels get flooded, your heart gets overfilled, and the fluid backs up into your lungs. ؠ Most people know to avoid the salt shaker, but sodium is in almost anything prepackaged/prepared, as a preservative or as a flavoring agent. Most of the people we take care of who are here from fluid getting backed up, because of too much sodium do not use a salt shaker at all. ؠ Get into the habit of looking at food labels, so you can see how much sodium is in the foods you eat. The most important number to look at is how much sodium is in each serving. But also notice the size of a serving. alive.cn will frequently make a serving size so tiny that it does not look like there is much sodium per serving, but a normal person might eat 3 or 4 servings of the food and take in a lot more sodium. ؠ Keep a "budget" of how much sodium you take in in each day. Most people stay out of trouble and stay out of the hospital as long as they stay "under budget". ؠ Majority of congestive heart failure patients do well if they take less than 2000 mg of sodium a day. Because our kidneys retain water based on how much sodium they are seeing in any given moment, it is also important to stay at less than about 500 mg in any given meal. This is because even if you stayed at less than 2000 mg of sodium, but ate it all at once, your kidneys would retain fluid at a rate as though you are taking in much more sodium than you actually are. Following How You Are Doing (Wet Versus Dry) Because managing congestive heart failure is an ongoing process, it is very important to learn how to follow your signs and symptoms and track how you are doing at home. This will allow you to catch problems before they become a big deal. In general, as your health care team, we look at managing congestive heart failure chronically as a balance of being "wet" (flooded with fluid) versus being "dry" (dehydrated from treatment). Wet - signs of fluid retention that would warrant further evaluation: ؠ Check your weight daily. If your weight goes up by more than 2 pounds in 1 day, it is almost certainly fluid related. This should warrant further thought, and/or a call to your doctor ؠ Follow your breathingmost of the time, early on when fluid backs up into your lungs, you will first start to notice shortness of breath when walking, or when lying flat. If you notice either of these, this should warrant further thought, and/or a call to your doctor ؠ If you notice both an increase in weight and worsening breathing, that definitely warrants getting seen as soon as possible "Dry"while managing the disease our goal is to keep you from getting "wet"; however, the medications can sometimes cause a degree of dehydration. ؠ Most people with congestive heart failure need frequent lab work (basic metabolic panel). Generally when there has been a change in diuretic dosing (a change in the water pill) or any other major changes, lab work should be followed closely and more frequently afterwards. This is because lab work will frequently show early signs of dehydration before you start to feel bad. ؠ Frequent symptoms of being dehydrated include: feeling weak and lightheaded, having lower blood pressures, making less urine than usual, or having a very dry mouth. If you notice any of these signs/symptoms, and you are not due for lab work, it would be quite reasonable to call your doctor to see if lab work or a visit could be arranged. Heart Failure Management Checklist * Limit Salt (Sodium) Intake to 2000mg (2g) per day and 500mg (0.5g) per meal * Check weight daily (in same clothes, without shoes) every morning * Use the provided chart to enter your weight and salt intake for the day Are you too wet? * If you gained 2lb or more - make sure to take your water pill * If your breathing is not good (you are more short of breath than usual) call your doctor regardless of weight change * If you gained 2lb or more and you are short of breath, see your doctor or come to the emergency room Are you too dry? * If you fee weak or lightheaded, have lower blood pressures, make less urine than usual, or have a very dry mouth. Call your doctor Daily Weight and Salt Intake Chart Baseline Weight Total Daily Salt Intake Limit: 2000 mg (2 g) Daily Weight (lbs) Daily Salt Intake (mg) Day 1 Day 2 Day 3 Day 4 Day 5 Day 6 Day 7 Day 8 Day 9 Day 10 Day 11 Day 12 Day 13 Day 14 Day 15 Day 16 Day 17 Day 18 Day 19 Day 20 Day 21 Day 22 Day 23 Day 24 Day 25 Day 26 Day 27 Day 28 Day 29 Day 30 Check labels to see how much salt there is! Dont forget that if you have more than 1 serving size, you have to increase the salt! For example, 15 chips is 170mg of salt, but 30 chips would be 340mg. Addtl Economic Development Director Provider Instructions: You were admitted to the hospital for progressively worsening shortness of breath. You were treated with the same water pill but we increased the dose because of swelling. You were deemed safe for discharge when your symptoms were improved. You were continued on the same dose of your water pills once your symptoms improved. We also did imaging on your chest, shoulder and ribs which was normal as you had a fall and pain in ribs. We put you on the pain medication same as your home. Medications Your medication list has been reviewed and reconciled. An updated list is included with your discharge paperwork. Take your medications as instructed; do not skip a dose. Make sure all of your doctors know every medicine you are taking (including [id number] medicines, vitamins, and supplements). Follow-up appointments: Make a follow-up appointment with your lung doctor "wire stockkeeper" and PCP within the next week. It is very important that you follow up with them shortly after discharge from the hospital. Please bring a copy of this discharge summary with you to your next office appointment so that your provider can review it at that time and stay updated on your hospitalization and potential changes in your care. You may call [phone] and ask to leave a message for Dr. Mccord if you have any issues filling your new prescriptions or any questions about your hospitalization. Contact your PCP if your symptoms return or worsen. Call [phone] or go to the ER if you experience any of the following: Sudden, severe abdominal pain or nausea/vomiting Severe chest pain, or chest pain that radiates (moves) to your jaw or arm Sudden, severe shortness of breath or difficulty breathing Thank you for allowing us to participate in your care. Pending Studies at Discharge: No Stand-Alone Forms: My Infolinks, Smoking Cessation Medications and DC Order Prescriptions: Continued albuterol sulfate 90 mcg/actuation HFA aerosol inhaler 2 puff INHALATION Q4H PRN (Reason: Shortness Of Breath Or Wheezing) Qty: 8.5 3RF levalbuterol tartrate 45 mcg/actuation HFA aerosol inhaler 2 puff INHALATION Q6H PRN (Reason: WHEEZE) Qty: 15 3RF bumetanide 2 mg tablet 4 mg PO DAILY Qty: 360 3RF Hold Instructions: Resume on 09/02/24. Rx Instructions: PER PT "TAKE 4 MG BID EVERY DAY". Can increase to 4 mg BID as needed for weight gain. budesonide 0.25 mg/2 mL suspension for nebulization 0.25 mg inhalation BID Qty: 60 3RF Trelegy Ellipta 200-62.5-25 mcg blister with device 1 ea INHALATION QAM Qty: 60 5RF levalbuterol HCl 1.25 mg/3 mL solution for nebulization 1.25 mg INHALATION Q8H PRN (Reason: Shortness Of Breath Or Wheezing) ipratropium bromide 0.02 % solution 3 ml continuous nebulization QID PRN (Reason: shortness of breath) Qty: 75 0RF allopurinol 300 mg tablet 300 mg PO DAILY citalopram 20 mg tablet 20 mg PO HS Mounjaro 7.5 mg/0.5 mL pen injector 7.5 mg SUBCUT WK Rx Instructions: SATURDAYS enoxaparin [Lovenox] 120 mg/0.8 mL Syringe 120 mg subcut DAILY Qty: 8 0RF insulin aspart U-100 [Novolog FlexPen U-100 Insulin] 100 unit/mL (3 mL) insulin pen 0 sliding scale dose subcut TIDM Rx Instructions: SLIDING SCALE WITH MEALS alprazolam 0.5 mg tablet 0.5 mg PO TID Hold Instructions: Resume on 04/06/24. Hold while you finish the course of fluconazole for the oral and esophageal thrush Rx Instructions: TAKES 0600, 1200, & 1800 DAILY EVERY DAY. PER PT "TAKING TO HELP WITH WITHDRAW FROM SUBOXONE". ondansetron 4 mg tablet,disintegrating 4 mg PO Q8 PRN (Reason: NAUSEA/VOMITING) colchicine 0.6 mg capsule 0.6 mg PO DAILY PRN (Reason: joint pain) Qty: 30 0RF insulin glargine [Lantus Solostar U-100 Insulin] 100 unit/mL (3 mL) insulin pen 60 unit SUBCUT QAM buprenorphine-naloxone 4-1 mg film 1 film sublingual DAILY Hold Instructions: Provider's Order: Dr. Gracia is prescribing 2 mg quetiapine 100 mg tablet 200 mg PO HS Qty: 0 0RF prednisone 5 mg tablet 15 mg PO DAILY Qty: 90 2RF Rx Instructions: PER PT "IF NEEDED, MAY TAKE ADDITIONAL 5 MG FOR TROUBLE BREATHING". tramadol 50 mg tablet 50 - 100 mg PO Q8H PRN (Reason: pain) Qty: 20 0RF Rx Instructions: has taken in hospital without issue Discharge Orders: Discharge Order (Routine); Ordered 12/30/24 Ordered By: Mojgan Barbour/Other Patient Handouts: Managing Type 2 Diabetes, Heart Failure Make Changes Diet Admission Data Admit Date/Time: 12/23/24 09:10 Attending Provider: Shaniqua Gracia Admit Provider: Casey Aguilar Primary Care Provider: Radha Barboza Other Providers: Casey Aguilar Other Interventions: Discharge Summary Assessment (RN) Last Done: 12/30/24 17:41 Supervising Physician Co-Signing Physician Notes I personally examined the patient and verified rosario points of history and exam, discussed case, and agree with decision making and plan documented by Dr. Mccord. Patient patient is a 64-year-old female with multiple comorbidities on readmission for acute HFpEF exacerbation. Complicated pulmonary history with recurrent exacerbations of COPD/asthma overlap in setting of tobacco use. Patient presented with dyspnea on exertion that improved following diuresis. Echo repeated with hyperdynamic systolic function, EF > 70%, no wall motion or valvular abnormalities, moderate concentric LVH. She was discharged on room air. Does have home oxygen if needed. Reviewed importance of dietary approach, e specially avoiding salty snacks. Will follow-up with pulmonary outpatient. Patient has chronic left lateral rib pain. Chest/rib x-ray unremarkable. Chest CT performed revealed ground glass/basilar opacities likely atelectasis. Patient is currently weaning chronic buprenorphine and working with palliative for pain management. Patient endorses hope to wean from chronic steroids, opioids, and benzodiazepines. Patient plans to follow-up with her PCP for hospital follow-up and management of chronic medical conditions. Total attending time 36 minutes
[2024-12-30 15:53] VITALS: BP 100/67
== END 2024-12-30 17:53 | disposition home or self-care (01) | DRG 292 ==
LOC: 2S 18:41 → ED 18:41 → SUATTDRO 21:55 → 2S 22:50 → SUATTDRO 12-23 09:10 → 3W 12-24 14:14

== ENCOUNTER 2025-01-18 16:04 | Inpatient (IN) ==
[2025-01-18 16:38] LABS: Hematocrit (blood only) 41.8 % (37.0-47.0); Hemoglobin 12.8 g/dl (12.0-16.0); Immature Granulocytes # (auto) 0.16 K/uL (0.01-0.20); Immature Granulocytes % (auto) 1.0 %; Mean Corpuscular Hemoglobin 26.7 pg (25.0-34.0); Mean Corpuscular Volume 87.3 fL (80.0-100.0); Platelet Count 399 K/uL (130-400); RDW Standard Deviation 56.5 fL (36.4-46.3); Red Blood Count 4.79 M/uL (4.20-5.40); White Blood Count 16.47 K/ul (4.8-10.8)
[2025-01-18 16:58] LABS: Alanine Aminotransferase 21.0 U/L (7-52); Albumin Globulin Ratio 1.1 (0.9-2); Albumin Level 4.0 gm/dl (3.4-5.0); Alkaline Phosphatase 142.0 U/L (34-104); Anion Gap 15.0 (3-11); Bilirubin,Total 0.3 mg/dl (0.2-1.0); Blood Urea Nitrogen 23.0 mg/dl (6-23); Calcium 9.0 mg/dl (8.6-10.3); Carbon Dioxide 30.0 mmol/L (21-32); Chloride 93.0 mmol/L (98-107); Creatinine Clr Calc Pharmacy 39.7 ml/min; Globulin 3.5 gm/dl (2.5-4.0); Glucose 228.0 mg/dl (70-99(Fasting)); Potassium 3.5 mmol/L (3.5-5.1); Sodium 138.0 mmol/L (136-145); Total Protein 7.5 gm/dl (6.0-8.3)
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
[2025-01-18] MEDS: ALBUTEROL HFA 8 GM INHALER INH ONE (19:06)
[2025-01-18] MEDS: BUMETANIDE 4 MG in SYRINGE 0 ML IV ONE (19:59)
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
[2025-01-18] MEDS: AZITHROMYCIN 250 MG TAB PO SCH (20:54)
[2025-01-18 20:57] LABS: Hemoglobin A1C 8.0 % (4.5-5.6)
[2025-01-18] MEDS ORDERED: MELATONIN 3 MG TAB PO PRN (23:24)
[2025-01-18] MEDS ORDERED: GLUCAGON FOR INJ 1 MG VIAL SQ PRN (23:24)
[2025-01-18] MEDS ORDERED: GLUCOSE 10 TAB/TUBE PO PRN (23:24)
[2025-01-18] MEDS ORDERED: POLYETHYLENE (MIRALAX) 17 GM PACK PO PRN (23:24)
[2025-01-18] MEDS ORDERED: CARBOHYDRATES FOR HYPOGLYCEMIA PO PRN (23:24)
[2025-01-18] MEDS ORDERED: DEXTROSE 50% 50 ML SYRINGE IV PRN (23:24)
[2025-01-18] MEDS ORDERED: GLUCOSE 40% GEL 15 GM TUBE PO PRN (23:24)
[2025-01-18] MEDS ORDERED: ACETAMINOPHEN 325 MG TAB PO PRN (23:46)
[2025-01-18] MEDS: INSULIN ASPART PER UNIT CHARGE SC SCH (23:47)
[2025-01-19] MEDS: ONDANSETRON 4 MG OD TAB PO PRN (00:17)
[2025-01-19] MEDS: CITALOPRAM 20 MG TAB PO SCH (00:17)
[2025-01-19] MEDS: BUDESONIDE 0.25 MG/2 ML VIAL (PULMICORT) INH SCH (00:38)
[2025-01-19] MEDS: ALBUT/IPRATROP 3MG/0.5MG NEB 3 ML VIAL NEB SCH (00:38)
[2025-01-19] MEDS: BUPRENORPHINE NALOXONE SL SCH (04:13)
[2025-01-19] MEDS: ENOXAPARIN INJ 120 MG/0.8 ML SYR SQ SCH (08:15)
[2025-01-19] MEDS: FLUTICASONE FUROATE 200MCG 14 PUFFS/INHALER INH SCH (08:16)
[2025-01-19] MEDS: UMECLIDINIUM/VILANTEROL 62.5/25MCG 7 PUFFS/INHALER INH SCH (08:16)
[2025-01-19] MEDS: LANTUS PER UNIT CHARGE SQ SCH (08:19)
[2025-01-19] MEDS ORDERED: NON-FORMULARY MEDICATION (Fluticasone-Umeclidin-Vilanter [Trelegy Ellipta] 200-62.5-25 mcg INH SCH (09:00)
[2025-01-19] MEDS: predniSONE 20 MG TAB PO SCH (16:21)
--- NOTE | 2025-01-19 17:18 | Billing Data ---
Date of Service January 19, 2025 Coding Level of Care Code 54107 SUB INP/OBS CARE MIN
--- NOTE | 2025-01-19 17:18 | Communication Note ---
Date of Service: January 19, 2025 I personally examined the patient and verified all rosario points of history and exam, discussed case, and agree with decision making with Dr Owens Ongoing shortness of breath and wheezing. Vitals noted, in general she is awake and alert pleasant, no distress. Lungs diminished with faint scattered wheeze faint base rales. Breathing unlabored no conversational dyspnea no accessory muscle use not on oxygen. COPD exacerbationlikely viral, has chronic dyspnea, and her immunocompromise state from prior bone marrow transplant likely makes her a little bit more brittle and picking up infections. Switch to p.o. steroids. Finish azithromycin. Likely home soon. Chronic diastolic CHFsevere recent track record, although it is probably more from dietary indiscretion then cardiomyopathy. She does seem to be doing better with sodium restriction. Uncontrolled type 2 diabetesmuch likely CHF, heavily lifestyle driven. And is improving. While not entirely sure why she woke up with a sugar of 300 yesterday morning (I do not have enough detail) the bump from 300 to approximately 450 was almost certainly due to the bread and a [employer] sandwich and the noodles and chicken soup. Anticoagulated. Otherwise as above
--- NOTE | 2025-01-19 17:52 | Hospitalist Progress Note ---
Date of Service January 19, 2025 Assessment & Plan (1) Asthma-COPD overlap syndrome: (2) ELEUTERIO (obstructive sleep apnea): (3) Acute exacerbation of chronic obstructive pulmonary disease: (4) Diabetes mellitus type 2, uncontrolled: (5) Multiple myeloma: Plan Pt is a 64 yo female with a past med hx of poorly controlled asthma/COPD, current smoker, chronic HFpEF with multiple exac over the last 1-2 years, DMT2 on insulin, former opioid dependence, ELEUTERIO on CPAP, multiple myeloma s/p bone marrow transplant in 2014 currently pending another bone marrow biopsy, anxiety, hx DVT for which she is on lovenox, and multiple social complicators to her care who presents to the hospital on 01/18 for shortness of breath. #Shortness of breath #Severe COPD/asthma in mild exacerbation - pt has oxygen at home and uses it from time to time, reports SOB for several days prior to admission especially with movement - she does still smoke 3 cigarettes a day - prednisone 40mg PO daily for total of 5 days, today 2/5 - duonebs q6hr - azithromycin 500mg po daily, today 2/5 - oxygen prn for sats <90% - encouraged smoking cessation #HFpEF - last echo- November 2024; EF >70%, no valvular abnormalities - CXR unremarkable - encouraged low sodium diet #MONICA - Cr baseline wnl around 0.9 - Cr on admission 1.39 - likely related to recent increase in bumex - hold bumex for now - follow BMP #DMT2 on insulin - A1c 8 - insulin glargine + SSI - discourage outside snacks #Multiple myeloma - s/p bone marrow transplant in 2014 - stable, will monitor #ELEUTERIO - continue CPAP HS Diet: DMT2 carb consistent VTE ppx: lovenox Dispo: medical Admission and Anticipated Discharge Date Admission Date: January 18, 2025 Subjective No overnight events. Pt still feels chest tightness this morning associated with occasional dry cough and wheeze. Her main concern is her glucose being high. She denies fever, chills, CP, abdominal pain, N/V/C/D, or complaints. Review of Systems Review of Systems: Per HPI Physical Exam Physical Exam: GA: well groomed, well nourished in no apparent distress. AAOx3 HEENT: head normocephalic, atraumatic. EOMI RESP: faint wheezing B/L, no rhonchi, or rales. 97RA CARDIOVASCULAR: S1 and S2 heard. No murmurs, rubs, or gallops. Radial pulses 2+ b/l RRR GI: Normoactive bowel sounds, no tenderness or masses felt to palpation MSK: no gross abnormalities or focal deficits SKIN: warm, dry, no edema PSYCH: appropriate mood and affect NEURO: no focal deficits. speech fluent Results & Data Results & Data Vital Signs (Past 12 Hours) Vital Signs Temp Pulse Resp BP Pulse Ox O2 Del Method O2 Flow Rate 01/19/25 15:09 36.9 C 100 H 20 125/83 96 Room Air 01/19/25 13:13 107 H 20 97 Room Air 01/19/25 08:15 Nasal Cannula 2 01/19/25 07:43 90 16 96 Nasal Cannula 2 01/19/25 07:29 36.4 C L 97 H 16 139/86 97 Nasal Cannula Resident Activity Tracking Resident Involvement: Resident Care Provided Care Provided: Adult Hospital Medicine (4) Diabetes mellitus type 2, uncontrolled Glycemic state: with hyperglycemia Qualified Code(s): E11.65 - Type 2 diabetes mellitus with hyperglycemia (5) Multiple myeloma Multiple myeloma remission status: unspecified Qualified Code(s): C90.00 - Multiple myeloma not having achieved remission
--- NOTE | 2025-01-20 05:27 | Billing Data ---
Date of Service January 20, 2025 Coding Level of Care Code 78980 INT INP/OBS CARE
[2025-01-20] MEDS: TRAMADOL HCL PO PRN (07:17)
[2025-01-20 07:31] LABS: Hematocrit (blood only) 35.8 % (37.0-47.0); Hemoglobin 11.0 g/dl (12.0-16.0); Immature Granulocytes # (auto) 0.11 K/uL (0.01-0.20); Immature Granulocytes % (auto) 0.8 %; Mean Corpuscular Hemoglobin 26.1 pg (25.0-34.0); Mean Corpuscular Volume 85.0 fL (80.0-100.0); Platelet Count 342 K/uL (130-400); RDW Standard Deviation 51.8 fL (36.4-46.3); Red Blood Count 4.21 M/uL (4.20-5.40); White Blood Count 14.65 K/ul (4.8-10.8)
[2025-01-20 07:53] LABS: Anion Gap 8.0 (3-11); Calcium 9.1 mg/dl (8.6-10.3); Carbon Dioxide 30.0 mmol/L (21-32); Chloride 95.0 mmol/L (98-107); Potassium 3.8 mmol/L (3.5-5.1); Sodium 133.0 mmol/L (136-145)
[2025-01-20 08:02] LABS: Blood Urea Nitrogen 24.0 mg/dl (6-23); Creatinine Clr Calc Pharmacy 65.7 ml/min
--- NOTE | 2025-01-20 08:25 | Hospitalist Progress Note ---
Date of Service January 20, 2025 Assessment & Plan (1) Asthma-COPD overlap syndrome: (2) ELEUTERIO (obstructive sleep apnea): (3) Diabetes mellitus type 2, uncontrolled: (4) Multiple myeloma: Plan Pt is a 64 yo female with a past med hx of poorly controlled asthma/COPD, current smoker, chronic HFpEF with multiple exac over the last 1-2 years, DMT2 on insulin, former opioid dependence, ELEUTERIO on CPAP, multiple myeloma s/p bone marrow transplant in 2014 currently pending another bone marrow biopsy, anxiety, hx DVT for which she is on lovenox, and multiple social complicates to her care who presents to the hospital on 01/18 for shortness of breath. Of note, pt was caught by nurse smoking roommate's vape on 01/20. #Shortness of breath #Severe COPD/asthma in mild exacerbation - pt has oxygen at home and uses it from time to time, reports SOB for several days prior to admission especially with movement - she does still smoke 3 cigarettes a day - prednisone 40mg PO daily for total of 5 days, today 06/29 - duonebs QID - azithromycin 500mg po daily, today 06/27 - oxygen prn for sats <90% - encouraged smoking cessation #HFpEF - last echo- November 2024; EF >70%, no valvular abnormalities - CXR unremarkable - encouraged low sodium diet #MONICA, resolved - Cr baseline wnl around 0.9 - Cr on admission 1.39-->0.84 - likely related to recent increase in bumex - hold bumex for now - follow BMP #DMT2 on insulin - A1c 8 - insulin glargine + SSI - discourage outside snacks #Multiple myeloma - s/p bone marrow transplant in 2014 - stable, will monitor #ELEUTERIO - continue CPAP HS Diet: DMT2 carb consistent, low sodium VTE ppx: lovenox Dispo: medical Admission and Anticipated Discharge Date Admission Date: January 18, 2025 Supervising Physician Co-Signing Physician Notes I personally examined the patient and verified all rosario points of history and exam, discussed case, and agree with decision making with Dr Owens Main complaints today are back pain and shoulder pain. After evaluation and discussion that it all appears to be musculoskeletal and outlined a plan involving shoulder steroid injection, physical therapy, and OMT for the shoulder back and hip painand discussed that there is not really anything that we can do to acutely change things inpatient, and that the plan would really serve her best as an outpatient, she then noted that she feels too short of breath to go home today. Later resident physician was informed that she vaped and went to the vending machine. Vitals noted, in general she is awake and alert pleasantly anxious no distress. HEENT normocephalic atraumatic mucous membranes moist. Right shoulder painful reproducible in the area of supraspinatus no step-off no effusion. Paraspinal musculature high tone, tender, decreased range of motion. COPD exacerbationlikely viral, has chronic dyspnea, and her immunocompromise state from prior bone marrow transplant likely makes her a little bit more brittle and picking up infections. Burst of p.o. steroids, finished azithromycin p.o. Home soon. Chronic diastolic CHFsevere recent track record, although it is probably more from dietary indiscretion then cardiomyopathy. She does seem to be doing better with sodium restriction. Uncontrolled type 2 diabetesmuch likely CHF, heavily lifestyle driven. Long-term improving. Continue insulin management here. Going to the vending machine obviously does not help especially given that we do not know about the sugars until after she is consumed the carbs and her sugar spikes. Anticoagulated. Otherwise as above Subjective No overnight events. Pt still feels chest tightness this morning associated with occasional dry cough and wheeze. She denies fever, chills, CP, abdominal pain, N/V/C/D, or complaints. Of note, pt was caught by nurse smoking roommate's vape this afternoon. Review of Systems Review of Systems: Per HPI Physical Exam Physical Exam: GA: well groomed, well nourished in no apparent distress. AAOx3 HEENT: head normocephalic, atraumatic. EOMI RESP: faint wheezing B/L, no rhonchi, or rales. 97RA CARDIOVASCULAR: S1 and S2 heard. No murmurs, rubs, or gallops. Radial pulses 2+ b/l RRR GI: no tenderness or masses felt to palpation MSK: no gross abnormalities or focal deficits SKIN: warm, dry, no edema PSYCH: appropriate mood and affect NEURO: no focal deficits. speech fluent Results & Data Results & Data Vital Signs (Past 12 Hours) Vital Signs Temp Pulse Pulse Resp BP Pulse Ox O2 Del Method 01/20/25 07:31 97 H 17 95 Nasal Cannula 01/20/25 07:15 36.7 C 99 H 18 143/88 H 93 Nasal Cannula 01/20/25 02:38 98 H 12 96 01/20/25 00:10 99 H 17 97 01/20/25 00:09 99 H 15 97 CPAP 01/19/25 22:34 36.7 C 101 H 16 124/76 93 Nasal Cannula 01/19/25 20:45 Room Air, CPAP O2 Flow Rate 01/20/25 07:31 2 01/20/25 07:15 2 01/20/25 02:38 2 01/20/25 00:10 2 01/20/25 00:09 2 01/19/25 22:34 2 01/19/25 20:45 Resident Activity Tracking Resident Involvement: Resident Care Provided Care Provided: Adult Hospital Medicine (3) Diabetes mellitus type 2, uncontrolled Glycemic state: with hyperglycemia Qualified Code(s): E11.65 - Type 2 diabetes mellitus with hyperglycemia (4) Multiple myeloma Multiple myeloma remission status: unspecified Qualified Code(s): C90.00 - Multiple myeloma not having achieved remission
[2025-01-20] MEDS: LANTUS PER UNIT CHARGE SQ SCH (08:33)
[2025-01-20] MEDS: BUPRENORPHINE/NALOXONE 2/0.5MG TAB SL SCH (08:33)
[2025-01-20] MEDS: ALBUT/IPRATROP 3MG/0.5MG NEB 3 ML VIAL NEB SCH ×2 (12:53→20:23)
[2025-01-20] MEDS: INSULIN ASPART PER UNIT CHARGE SC STA ×2 (17:03→23:26)
--- NOTE | 2025-01-20 17:20 | Billing Data ---
Date of Service January 20, 2025 Coding Level of Care Code 57304 SUB INP/OBS CARE MIN
--- NOTE | 2025-01-21 06:58 | Electrocardiogram Report ---
Test Reason : Blood Pressure : */* mmHG Vent. Rate : 115 BPM Atrial Rate : 115 BPM P-R Int : 140 ms QRS Dur : 66 ms QT Int : 322 ms P-R-T Axes : 55 24 49 degrees QTcB Int : 445 ms Sinus tachycardia with Premature atrial complexes Otherwise normal ECG When compared with ECG of 21-Dec-2024 18:58, Premature atrial complexes are now Present Criteria for Inferior infarct are no longer Present Nonspecific T wave abnormality no longer evident in Inferior leads Confirmed by Roel Willams ([id number]) on 01/21/2025 6:58:15 AM Referred By: Radha Barboza Confirmed By: Roel Willams
[2025-01-21 07:33] LABS: Hematocrit (blood only) 36.4 % (37.0-47.0); Hemoglobin 11.2 g/dl (12.0-16.0); Mean Corpuscular Hemoglobin 26.2 pg (25.0-34.0); Mean Corpuscular Volume 85.2 fL (80.0-100.0); Platelet Count 313 K/uL (130-400); RDW Standard Deviation 52.5 fL (36.4-46.3); Red Blood Count 4.27 M/uL (4.20-5.40); White Blood Count 12.40 K/ul (4.8-10.8)
[2025-01-21 07:50] LABS: Anion Gap 6.0 (3-11); Blood Urea Nitrogen 27.0 mg/dl (6-23); Calcium 9.1 mg/dl (8.6-10.3); Carbon Dioxide 31.0 mmol/L (21-32); Chloride 100.0 mmol/L (98-107); Creatinine Clr Calc Pharmacy 64.9 ml/min; Potassium 3.6 mmol/L (3.5-5.1); Sodium 137.0 mmol/L (136-145)
[2025-01-21 07:56] VITALS: TEMP 98.2
--- NOTE | 2025-01-21 08:09 | Discharge Summary ---
Date of Service January 21, 2025 Admission HPI Per Admitting Provider Pt is a 64 yo female with a past med hx of poorly controlled asthma/COPD, current smoker, chronic HFpEF with multiple exac over the last 1-2 years, DMT2 on insulin, former opioid dependence, ELEUTERIO on CPAP, multiple myeloma s/p bone marrow transplant in 2015 currently pending another bone marrow biopsy, anxiety, hx DVT for which she is on lovenox, and multiple social complicators to her care who presents to the hospital on 01/18 for shortness of breath. Pt is socially complicated and difficult to keep on topic as she often deviates the topic to discuss social issues or medical history that is not related to her visit today. Generally, pt states the last few days she was feeling progressively more SOB at home. She states she uses oxygen only occasional. She states she has been using her inhalers as prescribed and was using her albuterol every 1-2 hours. She states she keeps inhalers around her place so if she gets SOB when walking around she has easy access to one to try. She uses oxygen much less so. She reports decent CPAP compliance at night. She states her weight has been stable and her lower extremities are not swollen but states she believes she is fluid overloaded due to her shortness of breath. She also states the auto parts delivery driver that brought her in today is her sugars at home were 470s and so her PCP told her to come into the hospital for further eval. She states she treated herself with novolog at home but her sugars stayed high which is when she called her PCP. Sugar on admission 228. Other than the SOB, no fever, chills, cough. She is still smoking 3 cigarettes a day and states she is trying to quit and her son in encouraging her to quit. She notes she was suppose to get a bone marrow biopsy today for her multiple myeloma s/p bone marrow transplant in 2014 but she was unable to get this done due to her SOB. Principal Diagnosis COPD exacerbation Discharge Exam Gen: NAD, WD/WN HEENT: NCAT, normal conjunctiva, MMM, normal visual inspection CV: RRR, no m/r/g, S1/S2 normal, no LE edema Resp: Diffuse wheezing throughout all lung soriano, no increased WOB, speaking in full sentences, symmetrical chest rise MSK: Hunched posture, full ROM, normal str Skin: Warm, dry, well-perfused, no rashes appreciated Neuro: AOx3, CN II-XII grossly intact, no focal deficits Psych: Full, euthymic affect. Speech pace normal. Poor judgement and insight. No AVH, SI, HI Discharge Data Allergies Allergy/AdvReac Type Severity Reaction Status Date / Time codeine Allergy Severe Anaphylaxis Verified 01/18/25 20:06 Iodinated Contrast Media Allergy Severe Anaphylaxis Verified 01/18/25 20:06 shellfish derived Allergy Severe Anaphylaxis Verified 01/18/25 20:06 pollen extracts Allergy Mild Congested Verified 01/18/25 20:06 iohexol Allergy Unknown CAN'T Verified 01/18/25 20:06 REMEMBER diphenhydramine AdvReac Severe Anxiety Verified 01/18/25 20:06 [From Benadryl] promethazine AdvReac Intermediate Anxiety Verified 01/18/25 20:06 Consultations 01/18/25 19:55 ED Decision to Admit Stat Hospital Course (1) Asthma-COPD overlap syndrome: (2) ELEUTERIO (obstructive sleep apnea): (3) Diabetes mellitus type 2, uncontrolled: (4) Multiple myeloma: Plan Pt is a 64 yo female with a past med hx of poorly controlled asthma/COPD, chronic HFpEF with recurrent exacerbations, T2DM on insulin, ELEUTERIO on CPAP, current smoker, h/o opioid dependence, multiple myeloma s/p bone marrow transplant (2014) and currently pending bone marrow biopsy, anxiety, DVT on lovenox, and multiple social complications. She presented to the hospital on 01/18 for shortness of breath. Of note, pt was caught by nurse smoking roommate's vape on 01/20. Deemed safe for discharge when back at baseline respiratory status. #Shortness of breath #Severe COPD/asthma in mild exacerbation - Pt has oxygen at home and uses it from time to time, reports SOB for several days prior to admission especially with movement - Received duonebs, 0n721ml azithromycin, 3x40mg prednisone during her stay - Had supplemental O2 via nasal cannula prn to maintain SpO2 > 90%. Doing well on RA at discharge - She does still smoke 3 cigarettes a day. Encouraged smoking cessation - Finish out Z-marco a and prednisone 50mg daily x 5d after discharge #HFpEF - Last echo- November 2024; EF >70%, no valvular abnormalities - CXR unremarkable - Encouraged low sodium diet - Continue Bumex 4mg daily #H/o opioid use - Being weaned off suboxone by primary care team. Due to recent worsening of medical ailments and repeat hospital visits, reports she has had to increase her dosing as well as the amount of Xanax she takes for withdrawal sx - Says PCP was informed of this change. Because of this, she will run out by Jan 30 and requests 8-day supply of 0.25mg Xanax BID #MONICA - resolved - Cr baseline wnl around 0.9 - Cr on admission 1.39-->0.84 - likely related to recent increase in bumex - hold bumex for now - follow BMP #T2DM - A1c 8 - Continue insulin glargine + SSI #Multiple myeloma - stable - s/p bone marrow transplant in 2014 #ELEUTERIO - continue CPAP HS Total Time Total Time Spent Total Time Spent (In Minutes): <30 Discharge Plan Discharge Items Patient Disposition: Home - Self-Care Reason For Visit: SOB Discharge Diagnosis: COPD Exacerbation Condition on Discharge: Fair Activity: Resume your previous activity Non-emergency contact: Primary Care Provider Call non-emergency contact if: your symptoms worsen and you have a fever Follow-up/Referrals: Radha Barboza PA-C [Primary Care Provider] - Diet: Carb Consistent or DM2, Heart Healthy and Low Sodium (2gm) Addtl Attending Provider Instructions: You were admitted to the hospital for worsening shortness of breath. You were d etermined to have a COPD exacerbation and you were started on the appropriate treatment. You remained stable during your stay. Because you have a component of Heart Failure, you were started on a diabetic, low salt diet. Please follow the instructions below to help keep you feeling your best. COPD - It is imperative that you limit vaping and cigarette use, as these will make your condition worse - Use your at home inhalers as prescribed and finish the course of steroids and antibiotic - Stay up to date with vaccines as per your doctor's recommendations (flu shot, Covid-19 vaccine, etc.) - Wear a face mask when being around people who are sick Heart Failure - It is important that you follow a strict low-sodium diet. You should eat a diet high in protein and vegetables - This will require you to avoid salty snacks like chips, pretzels, soups - Salt restriction will help improve your fluid balance and breathing without increased need for diuretics Diabetes - It is important that you limit carbohydrates: sugar, breads, pasta, noodles, soda, sugary tea or snacks - You should eat a diet high in protein and vegetables - Exercise as per your doctor's recommendations New Medications: - Azithromycin - take 500mg (or 2 x 250mg tablets) on Day 1, followed by 250mg each day for 4 more days; you were sent a Z-marco a and can take as directed on the packaging - Prednisone - take 1 50mg tablet each day for 5 days Home Medications: continue taking as prescribed Thank you for allowing us to be a part of your care. Pending Studies at Discharge: No Stand-Alone Forms: My [facility], Smoking Cessation Medications and DC Order Prescriptions: New azithromycin [Zithromax Z-Marco A] 250 mg tablet See Rx Instructions .ROUTE .COMPLEX Qty: 6 0RF Rx Instructions: For 250 mg dose pack: take 500 mg today (day 1), then 250 mg for 4 days (days 2-5) prednisone 50 mg tablet 50 mg PO DAILY 5 Days Qty: 5 0RF alprazolam 0.25 mg tablet 0.25 mg PO BID Qty: 16 0RF Continued albuterol sulfate 90 mcg/actuation HFA aerosol inhaler 2 puff INHALATION Q4H PRN (Reason: Shortness Of Breath Or Wheezing) Qty: 8.5 3RF levalbuterol tartrate 45 mcg/actuation HFA aerosol inhaler 2 puff INHALATION Q6H PRN (Reason: WHEEZE) Qty: 15 3RF budesonide 0.25 mg/2 mL suspension for nebulization 0.25 mg inhalation BID Qty: 60 3RF Trelegy Ellipta 200-62.5-25 mcg blister with device 1 ea INHALATION QAM Qty: 60 5RF levalbuterol HCl 1.25 mg/3 mL solution for nebulization 1.25 mg INHALATION Q8H PRN (Reason: Shortness Of Breath Or Wheezing) ipratropium bromide 0.02 % solution 3 ml continuous nebulization QID PRN (Reason: shortness of breath) Qty: 75 0RF allopurinol 300 mg tablet 300 mg PO QAM citalopram 20 mg tablet 20 mg PO HS Mounjaro 7.5 mg/0.5 mL pen injector 7.5 mg SUBCUT Q7D Rx Instructions: take on Fridays enoxaparin [Lovenox] 120 mg/0.8 mL Syringe 120 mg subcut DAILY Qty: 8 0RF tramadol-acetaminophen 37.5-325 mg tablet 1 tab PO BID PRN (Reason: Severe Pain (Scale Score 7-10)) bumetanide 2 mg tablet 4 mg PO UD Rx Instructions: PER PT "TAKE 4 MG BID EVERY DAY". Can increase to 4 mg BID as needed for weight gain. colchicine 0.6 mg capsule 0.6 mg PO QAM prednisone 5 mg tablet 15 mg PO QAM Patient Comments: QAM; PER PT "IF NEEDED, MAY TAKE ADDITIONAL 5 MG FOR TROUBLE BREATHING". insulin aspart U-100 [Novolog FlexPen U-100 Insulin] 100 unit/mL (3 mL) insulin pen 0 sliding scale dose subcut TIDM Rx Instructions: SLIDING SCALE WITH MEALS alprazolam 0.5 mg tablet 0.5 mg PO TID Hold Instructions: Resume on 04/06/24. Hold while you finish the course of fluconazole for the oral and esophageal thrush Rx Instructions: TAKES 0600, 1200, & 1800 DAILY EVERY DAY. PER PT "TAKING TO HELP WITH WITHDRAW FROM SUBOXONE". ondansetron 4 mg tablet,disintegrating 4 mg PO Q8H PRN (Reason: NAUSEA/VOMITING) insulin glargine [Lantus Solostar U-100 Insulin] 100 unit/mL (3 mL) insulin pen 45 unit SUBCUT QAM buprenorphine-naloxone 4-1 mg film 1 film sublingual Q2D Hold Instructions: Provider's Order: Dr. Gracia is prescribing 2 mg Patient Comments: takes in evening quetiapine 100 mg tablet 200 mg PO HS Qty: 0 0RF Discharge Orders: Discharge Order (Routine); Ordered 01/21/25 Ordered By: Joanne Barbour/Other Patient Handouts: Managing Type 2 Diabetes Admission Data Admit Date/Time: 01/18/25 20:47 Attending Provider: Robby Dickinson Admit Provider: Renate Walker Primary Care Provider: Radha Barboza Other Providers: Casey Aguilar Other Interventions: Discharge Summary Assessment (RN) Last Done: 01/21/25 17:29 Supervising Physician Co-Signing Physician Notes I personally examined the patient and verified all rosario points of history and exam, discussed case, and agree with decision making with Dr Shea Ongoing shoulder painoutlined plan. Breathing feels about the samediscussed that she has fortunately been medically stable. She does feel up to going later today.. Vitals noted, in general she is awake and alert pleasantly anxious no distress. HEENT normocephalic atraumatic mucous membranes moist. Breathing unlabored, on forced respiration she creates an upper airway stridor that is referred throughout her lungs, but whenever asked her to breathe regularly her lungs are quiet but clear. COPD exacerbationlikely viral, has chronic dyspnea, and her immunocompromise state from prior bone marrow transplant likely makes her a little bit more brittle and picking up infections. safe for home. finish zithromax, finish steroid burst Chronic diastolic CHFsevere recent track record, although it is probably more from dietary indiscretion then cardiomyopathy. She does seem to be doing better with sodium restriction. emphasized again Uncontrolled type 2 diabetesmuch likely CHF, heavily lifestyle driven. Long-term improving. ongoing lifetsyle change. outpt f/u Anticoagulated. Otherwise as above Resident Activity Tracking Resident Involvement: Resident Care Provided Care Provided: Adult Hospital Medicine
[2025-01-21 15:16] VITALS: RESP 16
--- NOTE | 2025-01-21 16:10 | Billing Data ---
Date of Service January 21, 2025 Coding Level of Care Code 71605 IN/OBS DISCH 30 MIN/LESS
[2025-01-21 16:21] VITALS: BP 152/91; PULSE 92; O2SAT 99
--- NOTE | 2025-01-23 08:59 | Coding Query ---
To promote full compliance with coding requirements relating to patient care, provider participation is requested in all cases of freight car repairer uncertainty. Please assist us with the question(s) below: Coding Question(s): The diagnosis below was documented in the H&P, then subsequently fell off all further documentation. Please indicate if it is still a possible diagnosis or ruled out. Physician's Response(s): ACUTE ON CHRONIC RESPIRATORY FAILURE WITH HYPOXIA AND HYPERCAPNIA (documented on the H&P Supervising Physician area) ( ) Diagnosed and POA ( ) Diagnosed and not POA ( ) Ruled out ( x) Other (please specify) chronic respiratory failure, predominantly manifest as dyspnea, present on admission, with COPD exacerbation and possibly mild acute hypoxia MTDD
== END 2025-01-21 17:43 | disposition home or self-care (01) | DRG 191 ==
LOC: ED 16:04 → SUATTDRO 20:47 → 3N 20:47

== ENCOUNTER 2025-03-15 14:12 | Inpatient (IN) ==
--- NOTE | 2025-03-15 14:51 | Emergency Department Note ---
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 Dose: Not Given Documented By: Admin: 03/17/25 07:50 Dose: Not Given Documented By: Admin: 03/16/25 08:45 Dose: Not Given Documented By: MIKE Ondansetron HCl (Ondansetron Inj 2 Mg/Ml 2 Ml Vial) 4 mg IV Q6H PRN PRN Reason: Nausea Stop: 04/14/25 20:36 Last Admin: 03/18/25 03:02 Dose: 4 mg Documented By: CARLOS Oxycodone/Acetaminophen (Oxycodone/Acetaminophen 5mg/325mg Tab) 1 tab PO Q6H PRN PRN Reason: cancer pain Stop: 03/29/25 20:36 Last Admin: 03/19/25 12:26 Dose: 1 tab Documented By: Admin: 03/19/25 06:01 Dose: 1 tab Documented By: Admin: 03/18/25 21:12 Dose: 1 tab Documented By: Admin: 03/18/25 15:13 Dose: 1 tab Documented By: Admin: 03/18/25 09:06 Dose: 1 tab Documented By: Admin: 03/18/25 03:02 Dose: 1 tab Documented By: Admin: 03/17/25 20:06 Dose: 1 tab Documented By: Admin: 03/17/25 13:52 Dose: 1 tab Documented By: Admin: 03/17/25 06:06 Dose: 1 tab Documented By: Admin: 03/16/25 19:43 Dose: 1 tab Documented By: CARLOS Pantoprazole Sodium (Pantoprazole 40 Mg Tab) 40 mg PO BID FLETCHER Stop: 04/14/25 20:59 Last Admin: 03/19/25 08:46 Dose: 40 mg Documented By: Admin: 03/18/25 20:58 Dose: 40 mg Documented By: Admin: 03/18/25 08:15 Dose: Not Given Documented By: Admin: 03/17/25 20:36 Dose: Not Given Documented By: Admin: 03/17/25 07:51 Dose: Not Given Documented By: Admin: 03/16/25 21:34 Dose: Not Given Documented By: Admin: 03/16/25 08:49 Dose: Not Given Documented By: Admin: 03/15/25 21:15 Dose: Not Given Documented By: claire Quetiapine Fumarate (Quetiapine Fumarate 200 Mg Tab) 200 mg PO HS FLETCHER Stop: 04/14/25 20:59 Last Admin: 03/18/25 21:00 Dose: 200 mg Documented By: Admin: 03/17/25 20:21 Dose: 200 mg Documented By: Admin: 03/16/25 21:30 Dose: 200 mg Documented By: Admin: 03/15/25 21:52 Dose: 200 mg Documented By: claire Spironolactone (Spironolactone 100 Mg Tab) 100 mg PO DAILY FLETCHER Stop: 04/15/25 08:59 Last Admin: 03/19/25 08:49 Dose: 100 mg Documented By: Admin: 03/18/25 08:11 Dose: 100 mg Documented By: Admin: 03/17/25 08:01 Dose: 100 mg Documented By: Admin: 03/16/25 08:50 Dose: 100 mg Documented By: MIKE Umeclidinium/Vilanterol (Umeclidinium/Vilanterol 62.5/25mcg 7 Puffs/Inhaler) 1 puffs INH DAILY FLETCHER Stop: 04/16/25 13:14 Last Admin: 03/19/25 08:49 Dose: 1 puffs Documented By: Admin: 03/18/25 08:10 Dose: 1 puffs Documented By: Admin: 03/17/25 14:32 Dose: 1 puffs Documented By: NIECY Discontinued Medications Albuterol (Albut/Ipratrop 3mg/0.5mg Neb 3 Ml Vial) 3 ml NEB NOW STA; Protocol Stop: 03/15/25 15:10 Last Admin: 03/15/25 15:21 Dose: 3 ml Documented By: angie Albuterol (Albut/Ipratrop 3mg/0.5mg Neb 3 Ml Vial) 12 ml NEB ONE ONE; Protocol Stop: 03/15/25 15:59 Last Admin: 03/15/25 16:07 Dose: 12 ml Documented By: angie Albuterol (Albut/Ipratrop 3mg/0.5mg Neb 3 Ml Vial) 3 ml INH Q4H FLETCHER; Protocol Stop: 04/15/25 14:14 Last Admin: 03/16/25 14:25 Dose: Not Given Documented By: TORSTEN Azithromycin (Azithromycin 250 Mg Tab) 500 mg PO QAM FLETCHER Stop: 03/20/25 18:44 Last Admin: 03/19/25 08:46 Dose: 500 mg Documented By: Admin: 03/18/25 08:13 Dose: 500 mg Documented By: Admin: 03/17/25 08:01 Dose: 500 mg Documented By: Admin: 03/16/25 08:47 Dose: 500 mg Documented By: Admin: 03/15/25 19:41 Dose: 500 mg Documented By: angie Cefuroxime Axetil (Cefuroxime Axetil 500 Mg Tab) 500 mg PO BID [facility] Stop: 03/22/25 20:59 Last Admin: 03/19/25 08:48 Dose: 500 mg Documented By: Admin: 03/18/25 20:56 Dose: 500 mg Documented By: Admin: 03/18/25 08:10 Dose: 500 mg Documented By: Admin: 03/17/25 20:22 Dose: 500 mg Documented By: CARLOS Clonazepam (Clonazepam 0.25 Mg Od Tab) 0.125 mg PO BID [facility] Stop: 03/18/25 14:15 Last Admin: 03/18/25 08:10 Dose: 0.125 mg Documented By: Admin: 03/17/25 20:22 Dose: 0.125 mg Documented By: Admin: 03/17/25 08:01 Dose: 0.125 mg Documented By: Admin: 03/16/25 21:30 Dose: 0.125 mg Documented By: Admin: 03/16/25 08:48 Dose: 0.125 mg Documented By: Admin: 03/15/25 21:50 Dose: 0.125 mg Documented By: claire Clonazepam (Clonazepam 0.25 Mg Od Tab) 0.125 mg PO NOW ONE Stop: 03/18/25 12:56 Last Admin: 03/18/25 13:04 Dose: 0.125 mg Documented By: RYANN Clonazepam (Clonazepam 0.25 Mg Od Tab) 0.125 mg PO NOW STA Stop: 03/18/25 14:18 Last Admin: 03/18/25 14:30 Dose: 0.125 mg Documented By: RYANN Clonazepam (Clonazepam 0.25 Mg Od Tab) 0.25 mg PO NOW STA Stop: 03/19/25 11:15 Last Admin: 03/19/25 11:23 Dose: 0.25 mg Documented By: MADELYN Magnesium Sulfate/Dextrose (Magnesium Sulfate / D5w) 1 gm in 100 mls @ 600 mls/hr IV Q10M FLETCHER Stop: 03/15/25 16:18 Last Infusion: 03/15/25 16:50 Dose: Infused Documented By: angie Admin: 03/15/25 16:31 Dose: 600 mls/hr Documented By: Infusion: 03/15/25 16:19 Dose: Infused Documented By: Admin: 03/15/25 16:08 Dose: 600 mls/hr Documented By: angie Methylprednisolone 80 mg/ (Syringe) 1.28 mls @ 0.427 mls/min IV Q8H FLETCHER Stop: 04/15/25 07:59 Last Admin: 03/16/25 08:45 Dose: 0.427 mls/min Documented By: MIKE Methylprednisolone 40 mg/ (Syringe) 0.64 mls @ 0.427 mls/min IV Q8H FLETCHER Stop: 04/15/25 14:59 Last Admin: 03/17/25 08:01 Dose: 0.427 mls/min Documented By: Admin: 03/16/25 23:36 Dose: 0.427 mls/min Documented By: TLKaterine Admin: 03/16/25 16:06 Dose: 0.427 mls/min Documented By: MIKE Methylprednisolone 40 mg/ (Syringe) 0.64 mls @ 0.427 mls/min IV Q12H FLETCHER Stop: 04/16/25 19:59 Last Admin: 03/19/25 08:48 Dose: 0.427 mls/min Documented By: Admin: 03/18/25 20:54 Dose: 0.427 mls/min Documented By: Admin: 03/18/25 08:10 Dose: 0.427 mls/min Documented By: Admin: 03/17/25 20:21 Dose: 0.427 mls/min Documented By: CARLOS Insulin Human Regular 5 units/ (Syringe) 5 mls @ 5 mls/min IV 1645 ONE Stop: 03/17/25 16:46 Last Admin: 03/17/25 17:04 Dose: 5 mls/min Documented By: LONA Co-signed By: NIECY Insulin Aspart (Insulin Aspart Per Unit Charge) 0 units SC 0200 ONE Stop: 03/18/25 02:01 Last Admin: 03/18/25 02:22 Dose: 3 units Documented By: CARLOS Co-signed By: KAREN Insulin Glargine (Lantus Per Unit Charge) 40 units SQ QAM [facility] Stop: 04/15/25 08:59 Last Admin: 03/16/25 08:26 Dose: 40 units Documented By: MIKE Co-signed By: YOLANDA Insulin Glargine (Lantus Per Unit Charge) 10 units SQ QDD FLETCHER Stop: 03/18/25 18:30 Last Admin: 03/18/25 17:15 Dose: Not Given Documented By: RYANN Insulin Glargine (Lantus Per Unit Charge) 55 units SQ QAM [facility]LETCHER Stop: 03/19/25 11:00 Last Admin: 03/19/25 08:46 Dose: 55 units Documented By: MADELYN Co-signed By: RAYA Methylprednisolone (Methylprednisolone 125 Mg/2 Ml Vial) 80 mg IV NOW STA Stop: 03/15/25 15:12 Last Admin: 03/15/25 15:21 Dose: 80 mg Documented By: angie Nicotine (Nicotine 14 Mg/24 Hr Patch) 1 patch TD QAM [facility]LETCHER Stop: 04/15/25 08:59 Last Admin: 03/18/25 08:15 Dose: Not Given Documented By: Admin: 03/17/25 08:02 Dose: Not Given Documented By: Admin: 03/16/25 08:49 Dose: Not Given Documented By: MIKE Discharge Plan Visit Data Chief Complaint: Shortness of Breath/Dyspnea Stated Complaint: SOB ED Provider: Neelima Miller ED Midlevel Provider: Gerri Mcnair Discharge Problem: COPD exacerbation, Shortness of breath Patient Disposition: Admitted As Inpatient Condition: Fair Discharge Instructions Interventions: ED Discharge Assessment Last Done: 03/15/25 20:12
[2025-03-15 14:59] LABS: Hematocrit (blood only) 40.4 % (37.0-47.0); Hemoglobin 12.8 g/dL (12.0-16.0); Mean Corpuscular Hemoglobin 26.3 pg (25.0-34.0); Mean Corpuscular Volume 83.0 fL (80.0-100.0); Platelet Count 351 K/uL (130-400); RDW Standard Deviation 52.1 fL (36.4-46.3); Red Blood Count 4.87 M/uL (4.20-5.40); White Blood Count 13.35 K/ul (4.8-10.8)
--- NOTE | 2025-03-15 15:08 | XRay Report ---
XR chest 1V not portable CLINICAL HISTORY: Chest pain, nonspecific COMPARISON STUDY: 02/23/2025 FINDINGS: Heart size and pulmonary vasculature are normal. No consolidation or pleural effusion. No p neumothorax. IMPRESSION: No acute findings. ACT 112: Negative or not required by law. Electronically signed by: Jas Lancaster M.D. 03/15/2025 3:07 PM
[2025-03-15 15:17] LABS: Alanine Aminotransferase 14 U/L (7-52); Albumin Globulin Ratio 1.2 (0.9-2); Albumin Level 3.9 gm/dl (3.4-5.0); Alkaline Phosphatase 107 U/L (34-104); Anion Gap 11 (3-11); Bilirubin,Total 0.3 mg/dl (0.2-1.0); Blood Urea Nitrogen 25 mg/dl (6-23); Calcium 9.3 mg/dl (8.6-10.3); Carbon Dioxide 30 mmol/L (21-32); Chloride 95 mmol/L (98-107); Globulin 3.2 gm/dl (2.5-4.0); Glucose 225 mg/dl (70-99(Fasting)); Potassium 4.1 mmol/L (3.5-5.1); Sodium 136 mmol/L (136-145); Total Protein 7.1 gm/dl (6.0-8.3)
[2025-03-15] MEDS: ALBUT/IPRATROP 3MG/0.5MG NEB 3 ML VIAL NEB STA (15:21)
[2025-03-15 15:34] LABS: INR 1.1 (0.9-1.1); Partial Thromboplastin Time 24 Seconds (21-31); Prothrombin Time 11.4 Seconds (9.0-12.0)
[2025-03-15 15:59] LABS: Immature Granulocytes # (auto) 0.19 K/uL (0.01-0.20); Immature Granulocytes % (auto) 1.4 %; Ovalocytes 1+; Polychromasia 1+
[2025-03-15] MEDS: ALBUT/IPRATROP 3MG/0.5MG NEB 3 ML VIAL NEB ONE (16:07)
[2025-03-15] MEDS: MAGNESIUM SULFATE / D5W 1 GM/100 ML BAG IV SCH (16:08)
[2025-03-15 16:15] LABS: Chlamydia pneumoniae PCR Not Detected (NotDetected); Coronavirus 229E PCR Not Detected (NotDetected); Coronavirus CoV-2 (COVID19)PCR Not Detected (NotDetected); Coronavirus HKU1 PCR Not Detected (NotDetected); Coronavirus NL63 PCR Not Detected (NotDetected); Coronavirus OC43PCR Not Detected (NotDetected); Human Metapneumovirus PCR Not Detected (NotDetected); Parainfluenza Virus 1 PCR Not Detected (NotDetected); Parainfluenza Virus 2 PCR Not Detected (NotDetected); Parainfluenza Virus 3 PCR Not Detected (NotDetected); Parainfluenza Virus 4 PCR Not Detected (NotDetected); Respiratory Syncytial VirusPCR Not Detected (NotDetected); Rhinovirus/Enterovirus PCR Not Detected (NotDetected)
--- NOTE | 2025-03-15 18:14 | History & Physical Report ---
Date of Service March 15, 2025 Assessment & Plan (1) Chronic heart failure with preserved ejection fraction (HFpEF): (2) Acute exacerbation of chronic obstructive pulmonary disease: (3) Diabetes mellitus type 2, uncontrolled: (4) Generalized anxiety disorder: (5) Tobacco abuse counseling: (6) Cancer related pain: Plan Patient is a 64 y/o F PMHx severe COPD, CHF, T2DM, hx DVT on lovenox, ELEUTERIO, tobacco dependence, and multiple myeloma s/p stem cell transplant who is ad mitted for worsening shortness of breath, cough, and chest discomfort for 3 days likely in the setting of COPD exacerbation. #COPD exacerbation - was recently discharged from [facility] on 02/24/25 after a 5 day hospital admission due to similar symptoms, with numerous other admissions in the past few months/years. It doesn't appear as though is understand the gravity of her medical conditions given these recent admission. Patient continues to smoke tobacco and is careless with her diet, which further leads to exacerbation and further progression of her chronic conditions. Had extensive conversation with patient regarding her health and chronic problems, however still does not seem to understand her prognosis. - CXR in ED w/o pulmonary edema or consolidation - last spirometry 03/18/2024 - COPD with FEV1 46% ; following with [facility] Pulmonary. - Trelegy 200, prednisone 15mg daily, and PRN levalbuterol and ipratropium at home - in ED, received DuoNebs x1 and methylprednisolone 80mg IV. - will continue with DuoNebs q6h ; continue methylprednisolone 80mg IV overnight q8h - can consider switched to oral steroid in AM - guaifenesin BID - abx coverage for atypical - azithromycin 500mg po bid - cont home inhalers - Biofire negative - CBC, BMP qAM #sore throat/?mei vs strep throat - ongoing for 3 days and has not been improving - strep culture ordered and pending #uncontrolled T2DM -last a1c 8% in December -lantus 40 units daily -cont novolog - parameters - correction factor 20, carb ratio 1:7, goal range 110-180 -BSGs ac/hs #anxiety - clonazepam 0.125 mg po bid - seroquel 200mg daily #cancer related pain - following with palliative care, most recent visit 03/09/25, started trial of perocet 5/325 po q6h prn - continue #tobacco dependence -nicoderm patch 7mg/day (is down to <1/4 pack of cigs/day) #history of DVT 2020 - - lovenox 1.5mg/kg/day #chronic HFpEF - -appears euvolemic today ; lungs w/o rales and CXR w/o pulmonary edema ; there is chronic pedal edema BL however stable in the setting of her chronic venous stasis -follows with [facility] CHF clinic -cont bumex 4mg daily -cont aldactone 100mg BID #ELEUTERIO - -BIPAP HS & with naps DVT: lovenox Dispo: med/tele History of Present Illness Chief Complaint: shortness of breath. Primary Care Provider: Radha Barboza Janae Monzon is a 64 y/o F PMHx severe COPD, CHF, T2DM, hx DVT on lovenox, ELEUTERIO, tobacco dependence, and multiple myeloma s/p stem cell transplant who presented to ED this evening for evaluation of shortness of breath, chest tightness, and productive cough that has been ongoing for 3 days. Has been using home inhalers and Mucinex without much relief of her symptoms. Reports her chest tightness is intermittent and nonradiating. Cough is productive, however feels as though she can express the mucus and it is getting stuck in her throat. Denies fever/chills, headache, dizziness, N/V. She currently is living with her sister who was recently sick with a head cold. Patient tachycardic HR 110. O2 97% on 2L NC. She uses supplemental oxygen at home as needed. Has a CPAP at night for sleep. ED labs WBC 13.3, H&H 12.8 & 40.4. Electrolytes wnl. Cr 0.93. Glucose 225. CXR w/o pulmonary edema or consolidation. Biofire negative. Given DuoNebs x1 and methylprednisolone 80mg IV. Patient will be admitted to med/tele for acute COPD exacerbation in the setting of unspecific URI. Patient does have history of multiple admissions this year due to COPD exacerbation, most recently was d/c from [facility] on 02/24/25 after a 5 day admission. On prednisone 15mg daily at home. Has a 20 pack year smoking history. She states today she continues to smoke about 3-5 cigarettes daily. Following with pulmonology as well as allergy & immunology. Allergies Allergy/AdvReac Type Severity Reaction Status Date / Time codeine Allergy Severe Anaphylaxis Verified 03/15/25 18:51 Iodinated Contrast Media Allergy Severe Anaphylaxis Verified 03/15/25 18:51 shellfish derived Allergy Severe Anaphylaxis Verified 03/15/25 18:51 pollen extracts Allergy Mild Congested Verified 03/15/25 18:51 iohexol Allergy Unknown CAN'T Verified 03/15/25 18:51 REMEMBER diphenhydramine AdvReac Severe Anxiety Verified 03/15/25 18:51 [From Benadryl] promethazine AdvReac Intermediate Anxiety Verified 03/15/25 18:51 Home Medications Medication Instructions Recorded Confirmed Type levalbuterol HCl 1.25 mg/3 mL 1.25 mg inhalation Q8H PRN 01/16/23 03/15/25 History solution for nebulization Shortness Of Breath Or Wheezing insulin aspart U-100 100 unit/mL 0 sliding scale dose subcut TIDM 11/07/23 03/15/25 History (3 mL) subcutaneous pen (Novolog FlexPen U-100 Insulin aspart) ondansetron 4 mg disintegrating 4 mg PO Q8H PRN NAUSEA/VOMITING 02/28/24 03/15/25 History tablet citalopram 20 mg tablet 20 mg PO HS 04/21/24 03/15/25 History budesonide 0.25 mg/2 mL suspension 0.25 mg (2 mL) inhalation BID #60 05/24/24 03/15/25 Rx for nebulization mL quetiapine 100 mg tablet 200 mg (2 x 100 mg) PO HS #0 tabs 09/01/24 03/15/25 Rx fluticasone fur. 200 mcg-umeclid 1 ea inhalation QAM #60 ea 09/15/24 03/15/25 Rx 62.5 mcg-vilant 25 mcg inhalat.powder (Trelegy Ellipta) albuterol sulfate 90 mcg/actuation 2 puff inhalation Q4H PRN 10/10/24 03/15/25 Rx aerosol inhaler Shortness Of Breath Or Wheezing #8.5 grams levalbuterol tartrate 45 2 puff inhalation Q6H PRN WHEEZE 10/13/24 03/15/25 Rx mcg/actuation aerosol inhaler #15 grams insulin glargine 100 unit/mL (3 45 unit subcut QAM 11/17/24 03/15/25 History mL) subcutaneous pen (Lantus Solostar U-100 Insulin) tirzepatide 7.5 mg/0.5 mL 7.5 mg subcut Q7D 11/19/24 03/15/25 History subcutaneous pen injector (Mounjaro) bumetanide 2 mg tablet 4 mg PO UD 01/12/25 03/15/25 History colchicine 0.6 mg capsule 0.6 mg PO QAM joint pain 01/12/25 03/15/25 History prednisone 5 mg tablet 15 mg PO QAM 01/12/25 03/15/25 History enoxaparin 120 mg/0.8 mL 150 mg subcut DAILY 02/07/25 03/15/25 History subcutaneous syringe (Lovenox) ipratropium 0.5 mg-albuterol 3 mg 3 ml inhalation ONCE 21 days #150 02/24/25 03/15/25 Rx (2.5 mg base)/3 mL nebulization mL soln pantoprazole 40 mg tablet,delayed 40 mg PO BID 30 days #60 tabs 02/24/25 03/15/25 Rx release spironolactone 100 mg tablet 100 mg PO DAILY #0 tabs 02/24/25 03/15/25 Rx clonazepam 0.25 mg disintegrating 0.125 mg PO BID 03/02/25 03/15/25 History tablet guaifenesin 200 mg/5 mL oral liquid 200 mg PO Q4H PRN Congestion 03/02/25 03/15/25 History oxycodone-acetaminophen 5 mg-325 1 tab PO Q6H PRN cancer pain 1 03/09/25 03/15/25 Rx mg tablet (Percocet) month #120 tabs allopurinol 300 mg tablet 300 mg PO QAM 03/15/25 03/15/25 History Past Med/Surg History Problem List (Updated 03/15/25 @ 09:38 by Jaziel Ellsworth MD) Breast mass, left Family history of breast cancer (Acute) FAM HX: Maternal Great Grandmother Sarah +BrCa age 56yo 3 Maternal Great Aunts Kalina, Clarisa, and Yael with +BrCa who after the age of 70yo Mother Riya +BrCa dx age 65yo treated with radiation and poss chemo Paternal Aunt Laura BrCa age 70yo-lcuina Multiple myeloma radiation, Last chemotherapy 2016 used to follow with medical oncology in [facility]; now seeing raheem hoang onc. MDS (myelodysplastic syndrome) Cancer related pain Weakness generalized Chronic heart failure with preserved ejection fraction (HFpEF) Candidiasis of mouth and esophagus Traumatic wound Open wound of right foot (Acute) ELEUTERIO (obstructive sleep apnea) History of DVT (deep vein thrombosis) Chronic venous insufficiency (Chronic) Venous ulcers of both lower extremities (Acute) Severe persistent asthma Current chronic use of systemic steroids Diabetes mellitus type 2, uncontrolled (Acute) Mild renal insufficiency (Acute) CHF (congestive heart failure) (Acute) Asthma-COPD overlap syndrome Vitamin D deficiency Chronic hypercapnic respiratory failure Bone marrow transplant status Bilateral knee pain Right knee pain Generalized anxiety disorder Tobacco abuse counseling Medical History Hx of amphetamine abuse hx rehab, 2001 Chronic pain Neuropathy Pulmonary vascular congestion History of palpitations Mild renal insufficiency ELEUTERIO (obstructive sleep apnea) uses CPAP most nights unless having anxiety/panic attacks Hx of ovarian cancer dx 1992, sx, chemo Venous ulcers of both lower extremities "wounds all over legs, bandaged currently, f/u wound care [facility] (dyspnea on exertion) Chronic hypercapnic respiratory failure Chronic venous insufficiency CHF (congestive heart failure) On home oxygen therapy uses prn, 2-3L Sleep apnea CPAP Hypoxia "most of the time" per pt. Hyponatremia hx Mei esophagitis resolved per pt., gets occasionally because of inhalers DM II (diabetes mellitus, type II), controlled IDDM PAD (peripheral artery disease) Cellulitis "wounds all over legs, bandaged currently, f/u wound care [facility]" Hypokalemia hx Anxiety Heart failure with preserved ejection fraction hx COVID-19 2019, resolved 03/2024, resolved Normocytic hypochromic anemia Bilateral edema of lower extremity Gout History of pulmonary embolism ~2020, 2/2 to multiple myeloma; currently on lovenox Chronic anticoagulation Obesity hypoventilation syndrome hx Multiple myeloma radiation, Last chemotherapy 2016 used to follow with medical oncology in [place] [facility]; now seeing raheem hoang onc. Acute exacerbation of chronic obstructive pulmonary disease per pt, "she gets acute exacerbations of her COPD all the time" Tobacco abuse Opiate dependence Asthma Surgical History History of esophagogastroduodenoscopy (EGD) Hx of colonoscopy Hx of breast lump removal left Hx of tooth extraction Hx of knee surgery Hx of tonsillectomy Hx of appendectomy Hx of cholecystectomy Hx of laparoscopy "multiple" Hx of hysterectomy Hx of section x 2 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) [facility] Family History Sister Asthma Social History Smoking Status: Current every day smoker Tobacco Type: Cigarettes Age Started Using Tobacco: 15; Cigarettes Per Day: 3; Second Hand Exposure: No; Do You Dip or Chew Tobacco: No; Hx Alcohol Use: No Hx Substance Use: Yes Last Used Substance: Unknown Last Used Substance Other:: prescribed daily Substance Use Type Other:: previously took suboxone now weaned off (01/2025) Preferred Language: American Communication Ability: Effective Director Talent Management Required: No Beliefs That Will Affect Care: None marital status: Legally Current Living Situation: Family Current Living Situation Comment: living w/ sister current occupational status: disabled How many Children do You have: 2 How many Children do You have Comment: sons Feels Safe at Home: Yes Safety Concerns Comment: AWAITING DIVORCE TO BE FINAL in current or past relationships, have you been: hit, hurt, threatened and made to feel afraid Childhood Exposure to Second-Hand Smoke: No Diet: diabetic caffeine: Yes during the past year weight has: decreased > 10 lbs Assistive Devices: CPAP and Oxygen - at Night Physical Exam Physical Exam: GENERAL APPEARANCE: uncomfortable appearing, alert, awake, resting in bed. NEURO: Alert and oriented x3 EENT: Sclera anicteric, conjunctiva pink. Oral mucosa moist and pink. CARDIAC: tachycardic, regular rhythm. no mumur appreciated. LUNGS: diffuse end-expiratory wheezes throughout all lung soriano. no rales appreciated. no conversational dyspnea noted. some increased work of breathing w/o accessory muscle usage. ABDOMEN: Positive bowel sounds. Soft, nondistended, with mild epigastric tenderness (this is chronic, per patient). No guarding or rebound. EXTREMITIES: chronic venous stasis of BL lower extremities with stable BL pitting LE edema. SKIN: warm, dry, w/o rash Results & Data Results & Data Vital Signs (Past 12 Hours) Vital Signs Temp Pulse Pulse Resp BP BP Pulse Ox 03/15/25 17:22 88 L 03/15/25 16:30 103 H 20 137/97 100 03/15/25 15:47 104 H 22 89 L 03/15/25 15:30 103 H 03/15/25 15:01 96 03/15/25 15:01 103 H 22 128/89 96 03/15/25 15:01 96 03/15/25 15:01 03/15/25 14:14 36 C L 112 H 20 132/81 99 O2 Del Method O2 Flow Rate 03/15/25 17:22 Nasal Cannula 0 03/15/25 16:30 Nebulizer 03/15/25 15:47 Room Air 0 03/15/25 15:30 03/15/25 15:01 Room Air 0 03/15/25 15:01 03/15/25 15:01 Room Air 0 03/15/25 15:01 Room Air 03/15/25 14:14 Room Air Supervising Physician Co-Signing Physician Notes I personally examined the patient and verified all rosario points of history and exam, discussed case, and agree with decision making with Dr Mckeon worsening short of breath the last few days. Sister has a head cold. Vitals noted, in general she looks fatigued. Breathing unlabored. She does have diffuse wheezing. No rales. Skin without rashes pallor or icterus. Neuro without focal deficits. Labs and diagnostics noted. COPD exacerbationnebs, steroids, azithromycin, supportive care, time. Anticoagulated. Otherwise as above. Resident Activity Tracking Resident Involvement: Resident Care Provided Care Provided: Adult Hospital Medicine (3) Diabetes mellitus type 2, uncontrolled Glycemic state: with hyperglycemia Qualified Code(s): E11.65 - Type 2 diabetes mellitus with hyperglycemia
--- NOTE | 2025-03-15 18:53 | Billing Data ---
Date of Service March 15, 2025 Coding Level of Care Code 60116 INT INP/OBS CARE
[2025-03-15] MEDS: AZITHROMYCIN 250 MG TAB PO SCH (19:41)
[2025-03-15] MEDS ORDERED: GLUCAGON FOR INJ 1 MG VIAL SQ PRN (20:37)
[2025-03-15] MEDS ORDERED: DEXTROSE 50% 50 ML SYRINGE IV PRN (20:37)
[2025-03-15] MEDS ORDERED: GLUCOSE 10 TAB/TUBE PO PRN (20:37)
[2025-03-15] MEDS ORDERED: ACETAMINOPHEN 325 MG TAB PO PRN (20:37)
[2025-03-15] MEDS ORDERED: ALBUTEROL HFA 8 GM INHALER INH PRN (20:37)
[2025-03-15] MEDS ORDERED: CARBOHYDRATES FOR HYPOGLYCEMIA PO PRN (20:37)
[2025-03-15] MEDS ORDERED: ALBUT/IPRATROP 3MG/0.5MG NEB 3 ML VIAL INH SCH (20:37)
[2025-03-15] MEDS ORDERED: clonazePAM 0.5 MG TAB PO SCH (20:37)
[2025-03-15] MEDS ORDERED: GLUCOSE 40% GEL 15 GM TUBE PO PRN (20:37)
[2025-03-15] MEDS ORDERED: POLYETHYLENE (MIRALAX) 17 GM PACK PO PRN (20:37)
[2025-03-15] MEDS: BUDESONIDE 0.25 MG/2 ML VIAL (PULMICORT) INH SCH (21:07)
[2025-03-15] MEDS: clonazePAM 0.25 MG OD TAB PO SCH (21:50)
[2025-03-15] MEDS: INSULIN ASPART PER UNIT CHARGE SC SCH (21:51)
[2025-03-15] MEDS: CITALOPRAM 20 MG TAB PO SCH (21:53)
--- NOTE | 2025-03-16 06:36 | Electrocardiogram Report ---
Test Reason : Blood Pressure : */* mmHG Vent. Rate : 109 BPM Atrial Rate : 109 BPM P-R Int : 136 ms QRS Dur : 66 ms QT Int : 332 ms P-R-T Axes : 50 25 70 degrees QTcB Int : 447 ms Sinus tachycardia Cannot rule out Anterior infarct (cited on or before 19-Feb-2025) Abnormal ECG When compared with ECG of 19-Feb-2025 11:52, No significant change was found Confirmed by Roel Willams ([id number]) on 03/16/2025 6:36:10 AM Referred By: Confirmed By: Roel Willams
[2025-03-16] MEDS: LANTUS PER UNIT CHARGE SQ SCH (08:26)
[2025-03-16 08:31] LABS: Hematocrit (blood only) 38.6 % (37.0-47.0); Hemoglobin 12.2 g/dL (12.0-16.0); Immature Granulocytes # (auto) 0.18 K/uL (0.01-0.20); Immature Granulocytes % (auto) 1.6 %; Mean Corpuscular Hemoglobin 25.8 pg (25.0-34.0); Mean Corpuscular Volume 81.6 fL (80.0-100.0); Platelet Count 354 K/uL (130-400); RDW Standard Deviation 50.4 fL (36.4-46.3); Red Blood Count 4.73 M/uL (4.20-5.40); White Blood Count 11.35 K/ul (4.8-10.8)
[2025-03-16] MEDS: BUMETANIDE 1 MG TAB PO SCH (08:44)
[2025-03-16] MEDS: ENOXAPARIN 150 MG/ML SYR SC SCH (08:44)
[2025-03-16] MEDS: REMOVE NICODERM PATCH SCH (08:45)
[2025-03-16 08:46] LABS: Anion Gap 10.0 (3-11); Blood Urea Nitrogen 24.0 mg/dl (6-23); Calcium 9.3 mg/dl (8.6-10.3); Carbon Dioxide 30.0 mmol/L (21-32); Chloride 96.0 mmol/L (98-107); Creatinine Clr Calc Pharmacy 71.8 ml/min; Glucose 189.0 mg/dl (70-99(Fasting)); Magnesium 2.4 mg/dl (1.7-2.4); Potassium 4.1 mmol/L (3.5-5.1); Sodium 136.0 mmol/L (136-145)
[2025-03-16] MEDS: NICOTINE 14 MG/24 HR PATCH TD SCH (08:49)
[2025-03-16] MEDS: COLCHICINE 0.6 MG TAB PO SCH (08:49)
[2025-03-16] MEDS: SPIRONOLACTONE 100 MG TAB PO SCH (08:50)
[2025-03-16] MEDS ORDERED: ALBUT/IPRATROP 3MG/0.5MG NEB 3 ML VIAL INH PRN (08:50)
[2025-03-16] MEDS ORDERED: NON-FORMULARY MEDICATION (Fluticasone-Umeclidin-Vilanter [Trelegy Ellipta] 200-62.5-25 mcg INH SCH (09:00)
--- NOTE | 2025-03-16 09:29 | Hospitalist Progress Note ---
Date of Service March 16, 2025 Assessment & Plan (1) Chronic heart failure with preserved ejection fraction (HFpEF): (2) Acute exacerbation of chronic obstructive pulmonary disease: (3) Diabetes mellitus type 2, uncontrolled: (4) Generalized anxiety disorder: (5) Tobacco abuse counseling: (6) Cancer related pain: Plan Patient is a 64 y/o F PMHx severe COPD, CHF, T2DM, hx DVT on lovenox, ELEUTERIO, tobacco dependence, and multiple myeloma s/p stem cell transplant who is ad mitted for worsening shortness of breath, cough, and chest discomfort for 3 days likely in the setting of COPD exacerbation. #COPD exacerbation - was recently discharged from [facility] on 02/24/25 after a 5 day hospital admission due to similar symptoms, with numerous other admissions in the past few months/years. It doesn't appear as though is understand the gravity of her medical conditions given these recent admission. Patient continues to smoke tobacco and is careless with her diet, which further leads to exacerbation and further progression of her chronic conditions. Had extensive conversation with patient regarding her health and chronic problems, however still does not seem to understand her prognosis. - CXR in ED w/o pulmonary edema or consolidation - last spirometry 03/18/2024 - COPD with FEV1 46% ; following with [facility] [place] [facility]. Trelegy 200, prednisone 15mg daily, and PRN levalbuterol and ipratropium at home - will continue with DuoNebs q4h - decrease methylprednisolone to 40mg IV q8h as her lungs sound clear/wheezing from admission exam resolved - can consider switched to oral steroid in AM if continues to improve - guaifenesin BID - abx coverage for atypical - azithromycin 500mg po bid - hold home inhalers - Biofire negative - CBC, BMP qAM #sore throat/?mei vs strep throat - ongoing for 3 days and has not been improving - strep culture negative - throat culture pending #uncontrolled T2DM -last a1c 8% in December -lantus 45 units daily -cont novolog - parameters - correction factor 20, carb ratio 1:5, goal range 110-180 -BSGs ac/hs #anxiety - clonazepam 0.125 mg po bid - seroquel 200mg daily #cancer related pain - following with palliative care, most recent visit 03/09/25, started trial of perocet 5/325 po q6h prn - continue #tobacco dependence -nicoderm patch 7mg/day (is down to <1/4 pack of cigs/day) #history of DVT 2020 - - lovenox 150mg daily #chronic HFpEF - -appears euvolemic today ; lungs w/o rales and CXR w/o pulmonary edema ; there is chronic pedal edema BL however stable in the setting of her chronic venous stasis -follows with [facility] [place] [facility] [place] -cont bumex 4mg daily -cont aldactone 100mg BID #ELEUTERIO - -BIPAP HS & with naps DVT: lovenox Dispo: med/tele Admission and Anticipated Discharge Date Admission Date: March 15, 2025 Supervising Physician Co-Signing Physician Notes I personally examined the patient and verified all rosario points of history and exam, discussed case, and agree with decision making with Dr Mckeon Feels marginally better than yesterday but still fairly bad. Feels like there is a much worse exacerbation than she usually has. Vitals noted, in general she is fatigued. Breathing unlabored, lungs slightly diminished with faint wheezingbut better than yesterday. No accessory muscle use no conversational dyspnea good effort. Skin without rashes pallor or icterus. COPD exacerbation Continue nebulizers, slowly wean steroids, finish out a course of azithromycin, time. She notes she had quit smoking for 3 days prior to admissionapplauded her efforts on this. Anticoagulated. Otherwise as above. Subjective Patient seen and examined at bedside this morning. Alert, awake, no acute distress. States her SOB is not improved from yesterday and made it difficult to eat her breakfast this morning. Still having cough and unable to bring up mucus. Otherwise, no other concerns this morning. Denies chest pain, abdominal pain, N/V/D Review of Systems Review of Systems: as above Physical Exam Physical Exam: GENERAL APPEARANCE: appears to be in reasonable level of comfort, alert, awake, sitting in bedside chair NEURO: Alert and oriented x3 CARDIAC: tachycardic, regular rhythm. no murmur appreciated. LUNGS: diminished airflow throughout lung bases, however no wheezing or rales appreciated. no conversational dyspnea. no increased work of breath or accessory muscle usage. ABDOMEN: soft, nondistended, bowel sounds normoactive. EXTREMITIES: chronic venous stasis of BL lower extremities with stable BL pitting LE edema. SKIN: warm, dry, w/o rash Results & Data Results & Data Vital Signs (Past 12 Hours) Vital Signs Temp Pulse Pulse Resp BP Pulse Ox O2 Del Method 03/16/25 07:35 96 H 20 151/95 H 100 Nebulizer 03/16/25 07:10 87 18 91 Room Air 03/16/25 03:29 36.3 C L 95 H 16 153/92 H 93 BiPAP 03/16/25 02:36 101 H 13 90 03/15/25 23:03 103 H 13 91 03/15/25 22:48 110 H 03/15/25 22:47 36.4 C L 108 H 20 119/76 92 Room Air Resident Activity Tracking Resident Involvement: Resident Care Provided Care Provided: Adult Hospital Medicine (3) Diabetes mellitus type 2, uncontrolled Glycemic state: with hyperglycemia Qualified Code(s): E11.65 - Type 2 diabetes mellitus with hyperglycemia
[2025-03-16] MEDS: ALBUT/IPRATROP 3MG/0.5MG NEB 3 ML VIAL INH SCH ×2 (14:25→14:48)
--- NOTE | 2025-03-16 17:58 | Billing Data ---
Date of Service March 16, 2025 Coding Level of Care Code 88872 SUB INP/OBS CARE MIN
[2025-03-17 08:10] LABS: Hematocrit (blood only) 38.7 % (37.0-47.0); Hemoglobin 12.5 g/dL (12.0-16.0); Mean Corpuscular Hemoglobin 26.2 pg (25.0-34.0); Mean Corpuscular Volume 81.1 fL (80.0-100.0); Platelet Count 344 K/uL (130-400); RDW Standard Deviation 50.5 fL (36.4-46.3); Red Blood Count 4.77 M/uL (4.20-5.40); White Blood Count 15.15 K/ul (4.8-10.8)
[2025-03-17 08:28] LABS: Anion Gap 10.0 (3-11); Blood Urea Nitrogen 31.0 mg/dl (6-23); Calcium 8.9 mg/dl (8.6-10.3); Carbon Dioxide 28.0 mmol/L (21-32); Chloride 94.0 mmol/L (98-107); Creatinine Clr Calc Pharmacy 64.1 ml/min; Glucose 251.0 mg/dl (70-99(Fasting)); Potassium 4.2 mmol/L (3.5-5.1); Sodium 132.0 mmol/L (136-145)
[2025-03-17] MEDS: LANTUS PER UNIT CHARGE SQ SCH (08:59)
--- NOTE | 2025-03-17 13:33 | Hospitalist Progress Note ---
Date of Service March 17, 2025 Assessment & Plan (1) Chronic heart failure with preserved ejection fraction (HFpEF): (2) Acute exacerbation of chronic obstructive pulmonary disease: (3) Diabetes mellitus type 2, uncontrolled: (4) Generalized anxiety disorder: (5) Tobacco abuse counseling: (6) Cancer related pain: Plan Patient is a 64 y/o F PMHx severe COPD, CHF, T2DM, hx DVT on lovenox, ELEUTERIO, tobacco dependence, and multiple myeloma s/p stem cell transplant who is ad mitted for worsening shortness of breath, cough, and chest discomfort for 3 days likely in the setting of COPD exacerbation. #COPD exacerbation - was recently discharged from [facility] on 02/24/25 after a 5 day hospital admission due to similar symptoms, with numerous other admissions in the past few months/years. It doesn't appear as though is understand the gravity of her medical conditions given these recent admission. Patient continues to smoke tobacco and is careless with her diet, which further leads to exacerbation and further progression of her chronic conditions. Had extensive conversation with patient regarding her health and chronic problems, however still does not seem to understand her prognosis. - CXR in ED w/o pulmonary edema or consolidation - last spirometry 03/18/2024 - COPD with FEV1 46% ; following with [facility] [place] [facility]. Trelegy 200, prednisone 15mg daily, and PRN levalbuterol and ipratropium at home - current treatment: - DuoNebs q4h - methylprednisolone 40mg IV q12h (started taper, changed from q8h to q12h) - umeclidinium/vilant 62.5/25mcg 1 puff daily - guaifenesin BID - abx coverage for atypical - azithromycin 500mg po bid - Biofire negative - CBC, BMP qAM #sore throat/?mei vs strep throat - ongoing for 3 days prior to admission and has not been improving - strep culture negative ; throat culture positive for staph aureus - will plan on holding abx coverage at this time until sensitivities are resulted from culture - patient afebrile, hemodynamically stable #dysphagia - reporting this morning that food gets stuck in her throat and coughed up her eggs this morning ; states this happens at home too and has been becoming more bothersome to her - speech eval ordered: - plan for barium swallow and VFSS on Bart if she is still here to evaluate for esophageal function. #uncontrolled T2DM -last a1c 8% in December - due to steroids and patient snacking between meals, POC glucose continues to be >300, highest was 367 - add insulin NPH 15 units bid to help control steroid hyperglycemia - will continue lantus 45 units daily - novolog - parameters: correction factor 20, carb ratio 1:5, goal range 110- 180 - continue BSGs ac/hs #anxiety - clonazepam 0.125 mg po bid - seroquel 200mg daily #cancer related pain - following with palliative care, most recent visit 03/09/25, started trial of perocet 5/325 po q6h prn - continue #tobacco dependence -nicoderm patch 7mg/day (is down to <1/4 pack of cigs/day) #history of DVT 2020 - lovenox 150mg daily #chronic HFpEF - -appears euvolemic today ; lungs w/o rales and CXR w/o pulmonary edema ; there is chronic pedal edema BL however stable in the setting of her chronic venous stasis -follows with [facility] [place] [facility] clinic -cont bumex 4mg daily -cont aldactone 100mg BID #ELEUTERIO - -BIPAP HS & with naps DVT: lovenox Dispo: med/tele Admission and Anticipated Discharge Date Admission Date: March 15, 2025 Supervising Physician Co-Signing Physician Notes Patient seen and examined, chart reviewed, case discussed with Dr. Mckeon and I agree with the assessment and plan as above except as otherwise noted above. General: A&Ox3. NAD. Cooperative. HEENT: Atraumatic, normocephalic. Pulm: Diminished, b/l lower end expiratory wheezes, RLL coarse. Cardiac: RRR, -mrg. Radial pulses intact and symmetrical. Abdominal: Nontender, nondistended, soft. BS present. Progressing, remains dyspneic and with some wheezing. Volume status acceptable. Agree w/ switching Trelegy to formulary equivalent. Wean steroids to Q12H Pt notes she had been taking clonazepam 1mg BID instead of 0.5mg BID as prescribed as outpatient by accident. Will send FYI so PCP Mela is aware. Continue prescribed dose at this time. Sputum + for staph. NO consolidation on CXR. Given acute respiratory exacerbat ion will cover MSSA. Prior MRSA nare negative. Agree w/ cefuroxime PO BID x5 days and follow sensitivities. Hyperglycemic this afternoon. NPH added, adjust to steroid dose/frequency. 1x 5u IV insulin given and will recheck q1h x2, then resume SQ. Subjective Patient seen and examined at bedside this morning. Alert, awake, no acute distress. Sitting in her chair eating breakfast. Reports feeling better than admission, however still states her breathing is "tight." No overnight events. Having some difficulty swallowing and feeling as though food is getting stuck in her throat. Coughed up her eggs this morning. This is also ongoing at home. Denies chest pain, abdominal pain, N/V/D Review of Systems Review of Systems: as above Physical Exam Physical Exam: GENERAL APPEARANCE: appears to be in reasonable level of comfort, alert, awake, sitting in bedside chair NEURO: Alert and oriented x3 CARDIAC: tachycardic, regular rhythm. no murmur appreciated. LUNGS: diminished airflow throughout lung bases, with appreciable end-expiratory wheeze. some conversational dyspnea this morning as compared to previous. ABDOMEN: soft, nondistended, bowel sounds normoactive. EXTREMITIES: chronic venous stasis of BL lower extremities with stable BL pitting LE edema. SKIN: warm, dry, w/o rash Results & Data Results & Data Vital Signs (Past 12 Hours) Vital Signs Temp Pulse Pulse Resp BP Pulse Ox O2 Del Method 03/17/25 11:18 116 H 18 96 Room Air 03/17/25 09:41 Nasal Cannula 03/17/25 08:22 36.7 C 79 18 123/77 92 Room Air 03/17/25 08:18 36.5 C 116 H 19 182/109 H 96 Room Air 03/17/25 07:31 96 H 20 95 Room Air 03/17/25 07:17 103 H 03/17/25 03:36 36.4 C L 99 H 20 148/93 H 94 BiPAP 03/17/25 03:21 95 H 12 91 CPAP 03/17/25 03:21 95 H 12 91 03/17/25 00:11 102 H 18 92 O2 Flow Rate FiO2 03/17/25 11:18 03/17/25 09:41 2 03/17/25 08:22 03/17/25 08:18 03/17/25 07:31 03/17/25 07:17 03/17/25 03:36 03/17/25 03:21 21 03/17/25 03:21 21 03/17/25 00:11 21 (3) Diabetes mellitus type 2, uncontrolled Glycemic state: with hyperglycemia Qualified Code(s): E11.65 - Type 2 diabetes mellitus with hyperglycemia
[2025-03-17] MEDS: UMECLIDINIUM/VILANTEROL 62.5/25MCG 7 PUFFS/INHALER INH SCH (14:32)
[2025-03-17] MEDS ORDERED: PHARMACY GLYCEMIC MGMT CONSULT PRN (16:24)
[2025-03-17] MEDS: INSULIN HUMAN REGULAR PER UNIT 5 UNITS in SYRINGE 4.95 ML IV ONE (17:04)
[2025-03-17] MEDS: MELATONIN 3 MG TAB PO PRN (20:45)
[2025-03-17] MEDS ORDERED: LANTUS PER UNIT CHARGE SC SCH (21:00)
[2025-03-18] MEDS: INSULIN ASPART PER UNIT CHARGE SC ONE (02:22)
[2025-03-18] MEDS: ONDANSETRON INJ 2 MG/ML 2 ML VIAL IV PRN (03:02)
[2025-03-18 06:48] LABS: Hematocrit (blood only) 36.4 % (37.0-47.0); Hemoglobin 11.8 g/dL (12.0-16.0); Mean Corpuscular Hemoglobin 26.4 pg (25.0-34.0); Mean Corpuscular Volume 81.4 fL (80.0-100.0); Platelet Count 347 K/uL (130-400); RDW Standard Deviation 50.4 fL (36.4-46.3); Red Blood Count 4.47 M/uL (4.20-5.40); White Blood Count 14.90 K/ul (4.8-10.8)
[2025-03-18 07:15] LABS: Anion Gap 9.0 (3-11); Blood Urea Nitrogen 35.0 mg/dl (6-23); Calcium 8.8 mg/dl (8.6-10.3); Carbon Dioxide 30.0 mmol/L (21-32); Chloride 96.0 mmol/L (98-107); Creatinine Clr Calc Pharmacy 58.7 ml/min; Glucose 160.0 mg/dl (70-99(Fasting)); Potassium 4.2 mmol/L (3.5-5.1); Sodium 135.0 mmol/L (136-145)
--- NOTE | 2025-03-18 08:59 | Hospitalist Progress Note ---
Date of Service March 18, 2025 Assessment & Plan (1) Chronic heart failure with preserved ejection fraction (HFpEF): (2) Acute exacerbation of chronic obstructive pulmonary disease: (3) Diabetes mellitus type 2, uncontrolled: (4) Generalized anxiety disorder: (5) Tobacco abuse counseling: (6) Cancer related pain: Plan Patient is a 64 y/o F PMHx severe COPD, CHF, T2DM, hx DVT on lovenox, ELEUTERIO, tobacco dependence, and multiple myeloma s/p stem cell transplant who is ad mitted for worsening shortness of breath, cough, and chest discomfort for 3 days likely in the setting of COPD exacerbation. #COPD exacerbation - CXR in ED w/o pulmonary edema or consolidation - last spirometry 03/18/2024 - COPD with FEV1 46% ; following with [facility] Pulmonary. Trelegy 200, prednisone 15mg daily, and PRN levalbuterol and ipratropium at home - current treatment: - DuoNebs q4h - methylprednisolone 40mg IV q12h, will taper to qdaily tomorrow - umeclidinium/vilant 62.5/25mcg 1 puff daily - guaifenesin BID - abx coverage for atypical - azithromycin 500mg po qdaily (today 06/29) - Biofire negative - CBC, BMP qAM #pharyngitis/throat culture positive for S. Aureus - ongoing for 3 days prior to admission and has not been improving - strep culture negative - patient afebrile, hemodynamically stable - continue cefuroxime 500mg po bid (today 06/01) until sensitivities return - follow culture and sensitivities #dysphagia - speech eval ordered: - plan for barium swallow and VFSS on Thursday if she is still here to evaluate for esophageal function. #uncontrolled T2DM -last a1c 8% in December - due to steroids and patient snacking between meals, POC glucose continues to be >300, highest was 367 - insulin NPH 15 units bid to help control steroid hyperglycemia - will continue lantus 45 units daily - novolog - parameters: correction factor 20, carb ratio 1:5, goal range 110- 180 - continue BSGs ac/hs #anxiety, suspect reason for sinus tachycardia - clonazepam 0.125 mg po bid - will give one time additional dose of clonazepam today due to severe anxiety with plans to taper to current dose by Thursday - seroquel 200mg daily #cancer related pain - following with palliative care, most recent visit 03/09/25, started trial of perocet 5/325 po q6h prn - continue #tobacco dependence -nicoderm patch 7mg/day (is down to <1/4 pack of cigs/day) #history of DVT 2020 - lovenox 150mg daily #chronic HFpEF - -appears euvolemic today ; lungs w/o rales and CXR w/o pulmonary edema ; there is chronic pedal edema BL however stable in the setting of her chronic venous stasis -follows with [facility] [place] [facility] [place] -cont bumex 4mg daily -cont aldactone 100mg BID #ELEUTERIO - -BIPAP HS & with naps DVT: lovenox Dispo: med/tele Admission and Anticipated Discharge Date Admission Date: March 15, 2025 Supervising Physician Co-Signing Physician Notes Patient seen and examined, chart reviewed, case discussed with Dr. Owens and I agree with the assessment and plan as above except as otherwise noted Labs and images reviewed Seen at the bedside. She has good air movement today, does still remain with some end expiratory wheezes in the bases bilaterally but overall air movement appears improved and wheezing is stable/progressing. steroids weaning to daily. Did continue to feel anxious --> Reviewed her recent fill details from pharmacy and she was prescribed clonazepam 0.5 mg tablet by mouth twice daily 02/27/2025. She reports she is not sure of the dose per tablet. Based on the external fill review believe this was reconciled as a half tablet of her actual intended dose. Dose updated to 0.25mg BID. Additional dose x1 given today. Subjective No overnight events. Pt seen and examined this morning at bedside. States she does not feel better today which worries her. She says her chest feels "tight" due to congestion in her chest that she would like to cough up. Right now she has a nonproductive cough. She still has trouble swallowing her food but that has not worsened. Pt states she is feeling like she is having withdrawal-like sx due to current dose of clonazepam not being strong enough. Denies fever, chills, CP, abdominal pain. Review of Systems Review of Systems: as above Physical Exam Physical Exam: GA: well groomed, well nourished in no apparent distress, sitting upright in chair. AAOx3 HEENT: head normocephalic, atraumatic. EOMI RESP: vesicular breath sounds b/l. No wheezes, rhonchi, or rales CARDIOVASCULAR: S1 and S2 heard. No murmurs, rubs, or gallops. Radial pulses 2+ b/l RRR MSK: no gross abnormalities or focal deficits SKIN: warm, dry, no edema PSYCH: appropriate mood and affect NEURO: no focal deficits. speech fluent Results & Data Results & Data Vital Signs (Past 12 Hours) Vital Signs Temp Pulse Pulse Resp BP Pulse Ox O2 Del Method 03/18/25 07:33 36.6 C 110 H 19 152/96 H 99 Room Air 03/18/25 07:23 18 91 Room Air 03/18/25 07:00 105 H 03/18/25 05:23 91 H 18 90 Room Air 03/18/25 02:15 105 H 16 124/79 91 BiPAP 03/18/25 00:30 14 98 CPAP 03/18/25 00:30 103 H 14 98 03/17/25 22:00 111 H Resident Activity Tracking Resident Involvement: Resident Care Provided Care Provided: Adult Hospital Medicine (3) Diabetes mellitus type 2, uncontrolled Glycemic state: with hyperglycemia Qualified Code(s): E11.65 - Type 2 diabetes mellitus with hyperglycemia
[2025-03-18] MEDS: clonazePAM 0.25 MG OD TAB PO ONE (13:04)
--- NOTE | 2025-03-18 13:54 | Pharmacy Report ---
Pharmacy Glycemic Short Note 2 - Date of Service March 18, 2025 - Glycemic Short BSG Results (Last 24 hours): 03/17/25 03/17/25 03/17/25 16:10 17:50 19:53 Glucose POC Glucose 367 H* 300 H 186 H 03/18/25 03/18/25 03/18/25 02:08 06:10 07:31 Glucose 160 H POC Glucose 188 H 189 H 03/18/25 11:15 Glucose POC Glucose 252 H OUTPATIENT ANTIDIABETIC REGIMEN: * Lantus 45 units SC daily * Novolog sliding scale with meals A1c = 8% ASSESSMENT: * Janae is a 64 y/o F with PMHx severe COPD, CHF, T2DM, hx DVT on lovenox, ELEUTERIO, tobacco dependence, and multiple myeloma s/p stem cell transplant who presented with worsening shortness of breath, cough, and chest discomfort. Started on methylprednisolone 40 mg IV BID for COPD exacerbation. * Patient is well known to the glycemic service from past admissions. Will base insulin doses of October 2024 data as she was on high dose IV steroids for part of that admission as well. PLAN FOR INPATIENT GLYCEMIC CONTROL: * Basal insulin * Continue Lantus 45 units SQ qAM * Lantus 10 units SQ with dinner x 1 (one time dose per provider progress notes mention possible tapering of steroids on 03/19) * Bolus insulin * NovoLog per scale ACHS or Q6hrs while NPO * Goal Range: Low 110 mg/dL - High 140 mg/dL * Correction Factor: 15 mg/dL/unit * Nutritional / Prandial insulin per carb ratio of 1 unit per 4 grams CHO consumed
[2025-03-18] MEDS: clonazePAM 0.25 MG OD TAB PO STA (14:30)
[2025-03-18] MEDS: LANTUS PER UNIT CHARGE SQ SCH (17:15)
[2025-03-18] MEDS: clonazePAM 0.5 MG TAB PO SCH (20:54)
[2025-03-18] MEDS ORDERED: INSULIN HUMAN NPH SC SCH (21:00)
[2025-03-19 05:59] LABS: Hematocrit (blood only) 36.1 % (37.0-47.0); Hemoglobin 11.7 g/dL (12.0-16.0); Immature Granulocytes # (auto) 0.27 K/uL (0.01-0.20); Immature Granulocytes % (auto) 1.9 %; Mean Corpuscular Hemoglobin 26.2 pg (25.0-34.0); Mean Corpuscular Volume 80.9 fL (80.0-100.0); Platelet Count 340 K/uL (130-400); RDW Standard Deviation 49.1 fL (36.4-46.3); Red Blood Count 4.46 M/uL (4.20-5.40); White Blood Count 14.59 K/ul (4.8-10.8)
[2025-03-19 06:20] LABS: Anion Gap 10.0 (3-11); Blood Urea Nitrogen 39.0 mg/dl (6-23); Calcium 8.7 mg/dl (8.6-10.3); Carbon Dioxide 30.0 mmol/L (21-32); Chloride 96.0 mmol/L (98-107); Creatinine Clr Calc Pharmacy 65.1 ml/min; Potassium 3.8 mmol/L (3.5-5.1); Sodium 136.0 mmol/L (136-145)
--- NOTE | 2025-03-19 07:37 | Hospitalist Progress Note ---
Date of Service March 19, 2025 Assessment & Plan (1) Chronic heart failure with preserved ejection fraction (HFpEF): (2) Acute exacerbation of chronic obstructive pulmonary disease: (3) Diabetes mellitus type 2, uncontrolled: (4) Generalized anxiety disorder: (5) Tobacco abuse counseling: (6) Cancer related pain: Plan Patient is a 64 y/o F PMHx severe COPD, CHF, T2DM, hx DVT on lovenox, ELEUTERIO, tobacco dependence, and multiple myeloma s/p stem cell transplant who is ad mitted for worsening shortness of breath, cough, and chest discomfort for 3 days likely in the setting of COPD exacerbation. #COPD exacerbation - CXR in ED w/o pulmonary edema or consolidation - last spirometry 03/18/2024 - COPD with FEV1 46% ; [place] [facility] [place] Trelegy 200, prednisone 15mg daily, and PRN levalbuterol and ipratropium at home. Biofire negative - current treatment: - DuoNebs q4h - methylprednisolone 40mg IV qdaily - umeclidinium/vilant 62.5/25mcg 1 puff daily - guaifenesin BID - stop azithromycin due to pneumonia concerns - CBC, BMP qAM #Leukocytosis, suspect 2/2 CAP vs HAP -left shift today and pt is clinically worse, do not suspect elevated WBCs due to steroid course at this time -start cefepime 2g IV tid for broader coverage -start doxycycline 100mg IV bid -stop azithromycin and cefuroxime #pharyngitis/throat culture positive for S. Aureus - ongoing for 3 days prior to admission and has not been improving - strep culture negative - patient afebrile, hemodynamically stable - stop cefuroxime as above #dysphagia - speech eval ordered: - plan for barium swallow and VFSS on Thursday if she is still here to evaluate for esophageal function. #uncontrolled T2DM -last a1c 8% in December - due to steroids and patient snacking between meals, POC glucose continues to be >300, highest was 367 - insulin NPH 15 units bid to help control steroid hyperglycemia - will continue lantus 45 units daily - novolog - parameters: correction factor 20, carb ratio 1:5, goal range 110- 180 - continue BSGs ac/hs #anxiety, suspect reason for sinus tachycardia - clonazepam 0.25 mg po bid - seroquel 200mg daily #cancer related pain - following with palliative care, most recent visit 03/09/25, started trial of perocet 5/325 po q6h prn - continue #tobacco dependence -nicoderm patch 7mg/day discontinued due to pt noncompliance and refusal #history of DVT 2020 - lovenox 150mg daily #chronic HFpEF - -appears euvolemic today there is chronic pedal edema BL however stable in the setting of her chronic venous stasis -[place] [facility] [place] -cont bumex 4mg daily -cont aldactone 100mg BID #ELEUTERIO - -BIPAP HS & with naps DVT: lovenox Dispo: med/tele Admission and Anticipated Discharge Date Admission Date: March 15, 2025 Supervising Physician Co-Signing Physician Notes Patient seen and examined, chart reviewed, case discussed with Dr. Owens and I agree with the assessment and plan as above except as otherwise noted Labs and images reviewed She did have some congestion today. Somewhat difficulty expectorating sputum. Would like to use the liquid rather than pill Mucinex which has been brought in for her. Somewhat upset stomach this morning. Has been intermittently tachycardic. Tremulousness in hands is improved, heart rate above baseline. She appears near euvolemic overall today, on exam she has significant wheezing in the right mid and right lower soriano with frequent cough. She continues to have a leukocytosis, now with left shift. Left shift is atypical for steroid demargination. She had a throat culture which was positive for MSSA however has not clinically progressed. Coarseness in her middle lobe has worsened today. She has had hospital exposure. Will switch azithromycin to doxycycline, and cover for expanded pneumonia pathogens with cefepime. If doing well and progressing narrow to Doxy/ceftriaxone Clonazepam intended home dose is still continued. May have some dose related symptoms as was taking more than this at home. Additional one-time dose given, and will continue on her intended 0.25 mg p.o. twice daily at this time. Some tremulousness, improving but still present. She is in sinus. She is on therapeutic anticoagulation and she is not hypoxic, low suspicion for PE. Biotics and respiratory treatment as above. Agree with above Subjective No overnight events. Today pt states she feels like her breathing is worse due to chest congestion. She still has a cough which is nonproductive and wishes she can cough up the mucus she feels in her chest. Pt says she could not tolerate breakfast this morning due to her breathing causing an upset stomach. We discussed her medications and why medications, such as protonix are recommended. She denies fever, chills, CP, N/V, abdominal pain, or complaints. Review of Systems Review of Systems: as above Physical Exam Physical Exam: GA: well groomed, well nourished in no apparent distress, sitting upright in chair. AAOx3 HEENT: head normocephalic, atraumatic. EOMI RESP: crackles heard in bases B/L, worse on right CARDIOVASCULAR: S1 and S2 heard. No murmurs, rubs, or gallops. Radial pulses 2+ b/l RRR MSK: no gross abnormalities or focal deficits SKIN: warm, dry, no edema, multiple bruises on arms PSYCH: appropriate mood and affect NEURO: no focal deficits. speech fluent Results & Data Results & Data Vital Signs (Past 12 Hours) Vital Signs Temp Pulse Pulse Resp BP Pulse Ox O2 Del Method 03/19/25 07:33 36.3 C L 115 H 19 130/87 100 Room Air 03/19/25 07:03 99 H 20 95 Room Air 03/19/25 03:05 102 H 15 92 CPAP 03/19/25 03:05 102 H 15 92 03/19/25 00:15 100 H 15 90 03/19/25 00:14 100 H 18 90 CPAP 03/18/25 23:15 Room Air 03/18/25 22:00 106 H FiO2 03/19/25 07:33 03/19/25 07:03 03/19/25 03:05 03/19/25 03:05 21 03/19/25 00:15 21 03/19/25 00:14 03/18/25 23:15 03/18/25 22:00 Resident Activity Tracking Resident Involvement: Resident Care Provided Care Provided: Adult Hospital Medicine (3) Diabetes mellitus type 2, uncontrolled Glycemic state: with hyperglycemia Qualified Code(s): E11.65 - Type 2 diabetes mellitus with hyperglycemia
[2025-03-19] MEDS: LANTUS PER UNIT CHARGE SQ SCH (08:46)
[2025-03-19] MEDS: clonazePAM 0.25 MG OD TAB PO STA (11:23)
[2025-03-19 12:08] LABS: Magnesium 2.0 mg/dl (1.7-2.4)
[2025-03-19] MEDS: CEFEPIME 2000MG 2,000 MG/20 ML SYR IV SCH (12:26)
[2025-03-19] MEDS: DOXYCYCLINE HYCLATE 100 MG in DEXTROSE 5% MINI-B 100 ML IV SCH (12:27)
[2025-03-20 06:49] LABS: Hematocrit (blood only) 37.7 % (37.0-47.0); Hemoglobin 12.5 g/dL (12.0-16.0); Immature Granulocytes # (auto) 0.44 K/uL (0.01-0.20); Immature Granulocytes % (auto) 2.8 %; Mean Corpuscular Hemoglobin 26.7 pg (25.0-34.0); Mean Corpuscular Volume 80.6 fL (80.0-100.0); Platelet Count 331 K/uL (130-400); RDW Standard Deviation 48.7 fL (36.4-46.3); Red Blood Count 4.68 M/uL (4.20-5.40); White Blood Count 15.58 K/ul (4.8-10.8)
[2025-03-20 07:18] LABS: Anion Gap 11.0 (3-11); Blood Urea Nitrogen 36.0 mg/dl (6-23); Calcium 8.8 mg/dl (8.6-10.3); Carbon Dioxide 30.0 mmol/L (21-32); Chloride 95.0 mmol/L (98-107); Creatinine Clr Calc Pharmacy 63.3 ml/min; Potassium 3.4 mmol/L (3.5-5.1); Sodium 136.0 mmol/L (136-145)
--- NOTE | 2025-03-20 08:05 | Hospitalist Progress Note ---
Date of Service March 20, 2025 Assessment & Plan (1) Chronic heart failure with preserved ejection fraction (HFpEF): (2) Diabetes mellitus type 2, uncontrolled: (3) Generalized anxiety disorder: (4) Tobacco abuse counseling: (5) Cancer related pain: Plan Patient is a 64 y/o F PMHx severe COPD, CHF, T2DM, hx DVT on lovenox, ELEUTERIO, tobacco dependence, and multiple myeloma s/p stem cell transplant who is admitted for worsening shortness of breath, cough, and chest discomfort for 3 days likely in the setting of COPD exacerbation. Requires continued admission for further evaluation and treatment of acute illness. #COPD exacerbation - CXR in ED w/o pulmonary edema or consolidation - last spirometry 03/18/2024 - COPD with FEV1 46% ; [facility] with [facility]. - continue home Trelegy 200, prednisone 15mg daily, and PRN levalbuterol and ipr atropium at home. Biofire negative - current treatment: - DuoNebs q4h - methylprednisolone 40mg IV qdaily; will revisit switching to oral steroid 03/21/25 - umeclidinium/vilant 62.5/25mcg 1 puff daily - guaifenesin BID - CBC, BMP AM #Leukocytosis, CAP vs HAP -continue cefepime 2g IV TID and doxycycline 100mg IV BID - if improvement 03/21 will consider de-escalation to CTX and continue doxy - above pulmonary regimen #dysphagia Sensation of food getting stuck in esophagus, solids - Barium swallow 03/21 revealing esophagitis and lower esophageal diverticulum vs mass Recommendation to obtain new EGD, though pt did have one just last month 02/21/25 which was unremarkable Allowing clear liquid diet specifically chicken broth today but NPO midnight for possible EGD 03/21/25 #pharyngitis - ongoing for 3 days prior to admission and has not been improving - ordered chlorasceptic spray to help with pain - continue abx as above anyway for suspected CAP/HAP #uncontrolled T2DM -last a1c 8% in December - glucose improved from day prior - continue lantus 45 units daily - novolog - parameters: correction factor 20, carb ratio 1:5, goal range 110- 180 - continue BSGs ac/hs #anxiety, suspect reason for sinus tachycardia - clonazepam 0.25mg, escalating to 0.25mg TID due to increased anxiety as reported by pt - seroquel 200mg daily #cancer related pain - following with palliative care, most recent visit 03/09/25, continue perocet 5/325 po q6h prn #tobacco dependence -nicoderm patch 7mg/day discontinued due to pt noncompliance and refusal #history of DVT 2020 - lovenox 150mg daily #chronic HFpEF - -appears euvolemic today there is chronic pedal edema BL however stable in the setting of her chronic venous stasis -[place] [facility] [place]cont bumex 4mg daily -cont aldactone 100mg BID #ELEUTERIO - -BIPAP HS & with naps DVT: lovenox Dispo: med/tele Admission and Anticipated Discharge Date Admission Date: March 15, 2025 Supervising Physician Co-Signing Physician Notes Resident Physician Supervision Note: I personally examined the patient and verified all rosario points of history and exam, discussed case, and agree with decision making with Dr. Guadarrama I discussed the case with the resident and agree with the findings and plan as documented in the note. Any exceptions or clarifications are listed here: None Patient presented with some respiratory distress with concern for pneumonia with a background history of heart failure preserved ejection fraction and COPD. Patient was having some swallowing difficulties and does give a history of having difficulty with solids video fluoroscopy scopic swallowing study was done today with significant abnormalities seen in the esophagus by video imaging. Given the patient had an endoscopy in February 21, 2025 normal esophagus this likely may imply this could be esophagitis from infection or reflux. Will consult gastroenterology for consideration if we should begin empiric treatment prior to evaluation versus evaluation for confirmation if viral or fungal esophagitis versus other causes Otherwise patient's respiratory status is in good control she is mildly short of breath with exertion she is not requiring any oxygen. Lungs some coarse breath sounds with poor air movement Documented By: Kaiden Calabrese MD Subjective No overnight events. Today endorses she doesn't feel any better compared to day prior. Has intermittent cough, most concern about difficulty swallowing as it feels like things get stuck. Also notes her anxiety has been bad, states she should be on klonopin 0.5mg BID rather than 0.25mg BID. She denies fever, chills, CP, N/V, abdominal pain, or complaints. Physical Exam Physical Exam: Gen: appearing in no acute distress CV: tachycardic regular, no m/r/g Resp: scattered wheeze in all lung soriano, no obvious rales/rhonchi; b/l symmetrically decreased breath sounds Results & Data Results & Data Vital Signs (Past 12 Hours) Vital Signs Temp Pulse Pulse Resp BP Pulse Ox O2 Del Method 03/20/25 07:18 36.6 C 120 H 20 150/82 H 96 Room Air 03/20/25 07:18 105 H 03/20/25 07:07 102 H 20 92 Room Air 03/20/25 04:14 36.6 C 98 H 18 115/65 93 Room Air 03/20/25 03:02 78 16 98 Nasal Cannula 03/20/25 02:07 120 H 03/20/25 00:20 98 H 16 95 03/20/25 00:17 74 16 97 Room Air 03/19/25 23:26 36.6 C 95 H 22 103/75 92 Room Air O2 Flow Rate 03/20/25 07:18 03/20/25 07:18 03/20/25 07:07 03/20/25 04:14 03/20/25 03:02 0.5 03/20/25 02:07 03/20/25 00:20 03/20/25 00:17 03/19/25 23:26 Resident Activity Tracking Resident Involvement: Resident Care Provided Care Provided: Adult Hospital Medicine (2) Diabetes mellitus type 2, uncontrolled Glycemic state: with hyperglycemia Qualified Code(s): E11.65 - Type 2 diabetes mellitus with hyperglycemia
[2025-03-20] MEDS: LANTUS PER UNIT CHARGE SQ ONE ×2 (08:58→17:04)
--- NOTE | 2025-03-20 14:20 | Pharmacy Report ---
Pharmacy Glycemic Short Note 2 - Date of Service March 20, 2025 - Glycemic Short BSG Results (Last 24 hours): 03/19/25 03/19/25 03/19/25 16:17 19:59 21:48 POC Glucose 334 H* 195 H 76 Fasting Glucose 03/19/25 03/20/25 03/20/25 22:13 06:11 07:22 POC Glucose 85 123 H Fasting Glucose 99 03/20/25 11:17 POC Glucose 182 H Fasting Glucose OUTPATIENT ANTIDIABETIC REGIMEN: * Lantus 45 units SC daily * Novolog sliding scale with meals A1c = 8% (01/18/25) ASSESSMENT: 03/20/25: * Blood sugars have been elevated over past 48 hours w/ periods of snacking noted * Received 156 units of insulin (55 units of basal and 101 units of prandial/correctional bolus) * NPO this morning for barium swallow * Steroids reduced yesterday to methylprednisolone 40 mg IV daily 03/18/25: * Janae is a 64 y/o F with PMHx severe COPD, CHF, T2DM, hx DVT on lovenox, ELEUTERIO, tobacco dependence, and multiple myeloma s/p stem cell transplant who presented with worsening shortness of breath, cough, and chest discomfort. Started on methylprednisolone 40 mg IV BID for COPD exacerbation. * Patient is well known to the glycemic service from past admissions. Will base insulin doses of October 2024 data as she was on high dose IV steroids for part of that admission as well. PLAN FOR INPATIENT GLYCEMIC CONTROL: * Basal insulin * Lantus 20 units SC x 1 this morning * Lantus 20 units SC x 1 at dinner * ~25% reduction today given partial NPO day * Bolus insulin * NovoLog per scale ACHS or Q6hrs while NPO * Goal Range: Low 110 mg/dL - High 140 mg/dL * Correction Factor: 15 mg/dL/unit * Nutritional / Prandial insulin per carb ratio of 1 unit per 3 grams CHO consumed
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
--- NOTE | 2025-03-20 14:35 | Fluoroscopy Report ---
FL barium swallow CLINICAL HISTORY: assess esophageal function. TECHNIQUE: Barium contrast and effervescent crystals were administered to the patient under fluorosco pic examination. Multiple images were obtained and submitted for review. FLUOROSCOPY TIME: 24 seconds FLUOROSCOPY IMAGES: 20 Ka,r: 8 mGy COMPARISON: None FINDINGS: Exam is limited and abbreviated due to patient inability to tolerate the exam. There are te rtiary contractions of the esophagus and reduced esophageal motility. There is esophageal mucosal irr egularity suggesting esophagitis. There is irregularity at the distal esophagus which could represent a portion diverticulum measuring approximately 1 cm versus distal esophageal mass. No gross hiatal h ernia seen. IMPRESSION: 1. Limited exam. 2. Findings suggesting esophagitis. 3. Posterior diverticulum versus mass at the distal esophagus. Endoscopy is suggested. ACT 112: Positive. There are findings on this exam that require communication between the performing entity and the patient following Patient Test Result Information Act ([place] Act 112) guidelines. The above report was generated using voice recognition software. It may contain grammatical, syntax o r spelling errors. Electronically signed by: Jas Lancaster M.D. 03/20/2025 2:34 PM
[2025-03-20] MEDS: clonazePAM 0.5 MG TAB PO SCH (15:41)
[2025-03-20] MEDS ORDERED: CHLORASEPTIC (PHENOL) 1.4% SOLN 180 ML BTL MT PRN (15:51)
--- NOTE | 2025-03-20 17:42 | Billing Data ---
Date of Service March 20, 2025 Coding Level of Care Code 42487 SUB INP/OBS CARE
[2025-03-21 06:17] LABS: Hematocrit (blood only) 39.1 % (37.0-47.0); Hemoglobin 12.8 g/dL (12.0-16.0); Mean Corpuscular Hemoglobin 26.6 pg (25.0-34.0); Mean Corpuscular Volume 81.3 fL (80.0-100.0); Platelet Count 331 K/uL (130-400); RDW Standard Deviation 50.4 fL (36.4-46.3); Red Blood Count 4.81 M/uL (4.20-5.40); White Blood Count 16.14 K/ul (4.8-10.8)
[2025-03-21 06:49] LABS: Anion Gap 11.0 (3-11); Blood Urea Nitrogen 41.0 mg/dl (6-23); Calcium 8.9 mg/dl (8.6-10.3); Carbon Dioxide 32.0 mmol/L (21-32); Chloride 93.0 mmol/L (98-107); Creatinine Clr Calc Pharmacy 53.4 ml/min; Glucose 114.0 mg/dl (70-99(Fasting)); Potassium 3.7 mmol/L (3.5-5.1); Sodium 136.0 mmol/L (136-145)
--- NOTE | 2025-03-21 07:42 | Hospitalist Progress Note ---
Date of Service March 21, 2025 Assessment & Plan (1) Chronic heart failure with preserved ejection fraction (HFpEF): (2) Diabetes mellitus type 2, uncontrolled: (3) Generalized anxiety disorder: (4) Tobacco abuse counseling: (5) Cancer related pain: (6) Acute exacerbation of chronic obstructive pulmonary disease: Plan Patient is a 64 y/o F PMHx severe COPD, CHF, T2DM, hx DVT on lovenox, ELEUTERIO, tobacco dependence, and multiple myeloma s/p stem cell transplant who is adm itted for worsening shortness of breath, cough, and chest discomfort for 3 days likely in the setting of COPD exacerbation. Requires continued admission for further evaluation and treatment of acute illness: currently treating suspected candidal esophagitis, COPD exacerbation, and CAP. #COPD exacerbation - CXR in ED w/o pulmonary edema or consolidation - last spirometry 03/18/2024 - COPD with FEV1 46% ; following with [facility] [place] Pulmonary. - continue home Trelegy 200, PRN levalbuterol and ipratropium. - current treatment: - DuoNebs q4h - transitioned to prednisone 40mg qAM - umeclidinium/vilant 62.5/25mcg 1 puff daily - guaifenesin BID - CBC, BMP AM #Leukocytosis, CAP vs HAP Resp biofire negative -continue cefepime 2g IV TID and doxycycline 100mg IV BID - de-escalation to CTX, continue doxy - pulmonary regimen as above for COPD exacerbation #dysphagia #pharyngitis/esophagitis Sensation of food getting stuck in esophagus, solids predominantly - Barium swallow 03/21 revealing esophagitis and lower esophageal diverticulum vs mass due to history of steroids both systemic and inhaled, suspecting candidal esophagitis and treating as such: - fluconazole 300mg daily (based on weight) for 2wks halved dose of colchicine as this is known to raise fluconazole levels: if joint pain worsens, will consider returning to usual colchicine dose and decreasing fluconazole accordingly - continue chlorasceptic spray #uncontrolled T2DM -last a1c 8% in December - glucose stable - continue lantus 45 units daily - novolog - parameters: correction factor 20, carb ratio 1:5, goal range 110- 180 - continue BSGs ac/hs #anxiety, suspect reason for sinus tachycardia - clonazepam 0.25mg TID while inapatient - seroquel 200mg daily #cancer related pain - following with palliative care, most recent visit 03/09/25, continue perocet 5/325 po q6h prn #tobacco dependence -nicoderm patch 7mg/day discontinued due to pt noncompliance and refusal #history of DVT 2020 - lovenox 150mg daily #chronic HFpEF - -appears euvolemic today there is chronic pedal edema BL however stable in the setting of her chronic venous stasis -follows with [facility] CHF clinic -cont bumex 4mg daily -cont aldactone 100mg BID #ELEUTERIO -BIPAP HS & with naps DVT: lovenox Dispo: med/tele Admission and Anticipated Discharge Date Admission Date: March 15, 2025 Supervising Physician Co-Signing Physician Notes Resident Physician Supervision Note: I personally examined the patient and verified all rosario points of history and exam, discussed case, and agree with decision making with Dr. Guadarrama I discussed the case with the resident and agree with the findings and plan as documented in the note. Any exceptions or clarifications are listed here: None Patient presented with some respiratory distress with concern for pneumonia with a background history of heart failure preserved ejection fraction and COPD. Patient was having some swallowing difficulties and does give a history of having difficulty with solids video fluoroscopy scopic swallowing study was done 03/20 with significant abnormalities seen in the esophagus by video imaging. Given the patient had an endoscopy in February 21, 2025 normal esophagus this likely may imply this could be esophagitis from infection or reflux. gastroenterology not feel further invasive investigation was warranted. Will treat periodically for fungal esophagitis at this time given steroid use and stressors. Otherwise patient's respiratory status is in good control she is mildly short of breath with exertion she is not requiring any oxygen. Lungs some coarse breath sounds with poor air movement Patient had a lengthy discussion regarding her symptomatology and end-of-life given her concern that her bone marrow transplant may be nearing its end of usefulness. She requested to reengage in palliative care whom I reached out to and they did discuss symptom control with the patient making some amendments to medications and changing her CODE STATUS to DNR Documented By: Kaiden Calabrese MD Subjective No overnight events. Today endorses she feels breathing is a bit better. Given regular diet by GI team, has been tolerating fine. She still denies fever, chills, CP, N/V, abdominal pain, or complaints Physical Exam Physical Exam: Gen: appearing in no acute distress CV: tachycardic regular, no m/r/g Resp: scattered wheeze in all lung soriano, no obvious rales/rhonchi; b/l symm etrically decreased breath sounds especially on exhalation MSK: no peripheral edema; scattered bandages on b/l UE, not currently bleeding and nontender to palpation Results & Data Results & Data Vital Signs (Past 12 Hours) Vital Signs Temp Pulse Resp BP Pulse Ox O2 Del Method 03/21/25 07:05 80 20 98 Room Air 03/21/25 04:14 36.6 C 99 H 18 145/79 H 93 Room Air 03/20/25 23:45 36.8 C 106 H 18 107/67 91 Room Air 03/20/25 19:51 102 H 18 99 Room Air Resident Activity Tracking Resident Involvement: Resident Care Provided Care Provided: Adult Hospital Medicine (2) Diabetes mellitus type 2, uncontrolled Glycemic state: with hyperglycemia Qualified Code(s): E11.65 - Type 2 diabetes mellitus with hyperglycemia
[2025-03-21] MEDS: LANTUS PER UNIT CHARGE SQ SCH (08:41)
[2025-03-21] MEDS ORDERED: Nursing to Pharmacy Communication SCH ×2 (11:15→11:45)
[2025-03-21] MEDS: FLUCONAZOLE 100 MG TAB PO SCH (13:01)
[2025-03-21] MEDS: cefTRIAXone SODIUM 2,000 MG/50 ML BAG IV SCH (13:01)
--- NOTE | 2025-03-21 13:18 | Pharmacy Report ---
Pharmacy Glycemic Short Note 2 - Date of Service March 21, 2025 - Glycemic Short BSG Results (Last 24 hours): 03/20/25 03/20/25 03/20/25 16:19 19:39 20:52 Glucose POC Glucose 247 H 170 H 122 H 03/20/25 03/20/25 03/21/25 21:19 21:50 05:25 Glucose 114 H POC Glucose 72 77 03/21/25 03/21/25 07:40 11:05 Glucose POC Glucose 115 H 141 H OUTPATIENT ANTIDIABETIC REGIMEN: * Lantus 45 units SC daily * Novolog sliding scale with meals A1c = 8% (01/18/25) ASSESSMENT: 03/21/25 * Janae received a total of 79 units of insulin yesterday (40 units were basal and 39 units were bolus). * Fasting BSG was 115mg/dL. Diet was restarted last evening so Lantus was resumed this morning at 45 units SQ daily. * CR of bolus insulin was loosened as BSGs have dropped below goal the last two evenings. * She continues on methylprednisolone 40mg iv daily 03/20/25 * Blood sugars have been elevated over past 48 hours w/ periods of snacking noted * Received 156 units of insulin (55 units of basal and 101 units of prandial/correctional bolus) * NPO this morning for barium swallow * Steroids reduced yesterday to methylprednisolone 40 mg IV daily 03/18/25: * Janae is a 64 y/o F with PMHx severe COPD, CHF, T2DM, hx DVT on lovenox, ELEUTERIO, tobacco dependence, and multiple myeloma s/p stem cell transplant who presented with worsening shortness of breath, cough, and chest discomfort. Started on methylprednisolone 40 mg IV BID for COPD exacerbation. * Patient is well known to the glycemic service from past admissions. Will base insulin doses of October 2024 data as she was on high dose IV steroids for part of that admission as well. PLAN FOR INPATIENT GLYCEMIC CONTROL: * Basal insulin * Lantus 45 units SQ daily * Bolus insulin * NovoLog per scale ACHS or Q6hrs while NPO * Goal Range: Low 110 mg/dL - High 140 mg/dL * Correction Factor: 15 mg/dL/unit * Nutritional / Prandial insulin per carb ratio of 1 unit per 5 grams CHO consumed
--- NOTE | 2025-03-21 14:11 | Palliative Care Consultation ---
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 (NotDetected) Coronavirus OC43 (PCR) (NotDetected) Coronavirus HKU1 (PCR) (NotDetected) Coronavirus 229E (PCR) (NotDetected) SARS-CoV-2 (PCR) (NotDetected) Coronavirus NL63 (PCR) (NotDetected) Human Metapneumovir PCR (NotDetected) Influenza Type A (PCR) (NotDetected) Influenza Type B (PCR) (NotDetected) M. pneumoniae (PCR) (NotDetected) Parainfluenza 1 (PCR) (NotDetected) Parainfluenza 2 (PCR) (NotDetected) Parainfluenza 3 (PCR) (NotDetected) Parainfluenza 4 (PCR) (NotDetected) RSV (PCR) (NotDetected) Entero/Rhino (PCR) (NotDetected) Group A Strep (PCR) (NotDetected) 03/19/25 03/19/2503/19/25 Range/Units 19:59 16:17 11:11 WBC (4.8-10.8) K/ul RBC (4.20-5.40) M/uL Hgb (12.0-16.0) g/dL Hct (37.0-47.0) % MCV (80.0-100.0) fL MCH (25.0-34.0) pg MCHC (32.0-36.0) g/dL RDW Std Deviation (36.4-46.3) fL RDW Coeff of Malick (11.5-14.5) % Plt Count (130-400) K/uL MPV (9.4-12.4) fL Immature Gran % (Auto) % Neut % (Auto) % Lymph % (Auto) % [place] % (Auto) % Eos % (Auto) % Baso % (Auto) % Neut # (Auto) (1.40-6.50) K/uL Lymph # (Auto) (1.20-3.40) K/uL [place] # (Auto) (0.11-0.59) K/uL Eos # (Auto) (0.00-0.50) K/uL Baso # (Auto) (0.00-0.20) K/uL Immature Gran # (Auto) (0.01-0.20) K/uL Absolute Nucleated RBC (0.00-0.12) K/uL Nucleated RBC % (auto) % Polychromasia Ovalocytes PT (9.0-12.0) Seconds INR (0.9-1.1) APTT (21-31) Seconds PTT Ratio Sodium (136-145) mmol/L Potassium (3.5-5.1) mmol/L Chloride (98-107) mmol/L Carbon Dioxide (21-32) mmol/L Anion Gap (3-11) BUN (6-23) mg/dl Creatinine (0.6-1.2) mg/dl Est Cr Clr Drug Dosing eGFR BUN/Creatinine Ratio (10-20) Glucose (70-99(Fasting)) mg/dl POC Glucose 195 H 334 H* 315 H* (70-99) mg/dl Fasting Glucose (70-99) mg/dl Calcium (8.6-10.3) mg/dl Magnesium (1.7-2.4) mg/dl Total Bilirubin (0.2-1.0) mg/dl AST (13-39) U/L ALT (7-52) U/L Alkaline Phosphatase (34-104) U/L Troponin I High Sens (0-14) pg/ml Total Protein (6.0-8.3) gm/dl Albumin (3.4-5.0) gm/dl Globulin (2.5-4.0) gm/dl Albumin/Globulin Ratio (0.9-2) Adenovirus (PCR) (NotDetected) B. pertussis DNA (PCR) (NotDetected) B.parapertussis DNA PCR (NotDetected) C. pneumoniae DNA (PCR) (NotDetected) Coronavirus OC43 (PCR) (NotDetected) Coronavirus HKU1 (PCR) (NotDetected) Coronavirus 229E (PCR) (NotDetected) SARS-CoV-2 (PCR) (NotDetected) Coronavirus NL63 (PCR) (NotDetected) Human Metapneumovir PCR (NotDetected) Influenza Type A (PCR) (NotDetected) Influenza Type B (PCR) (NotDetected) M. pneumoniae (PCR) (NotDetected) Parainfluenza 1 (PCR) (NotDetected) Parainfluenza 2 (PCR) (NotDetected) Parainfluenza 3 (PCR) (NotDetected) Parainfluenza 4 (PCR) (NotDetected) RSV (PCR) (NotDetected) Entero/Rhino (PCR) (NotDetected) Group A Strep (PCR) (NotDetected) 03/19/25 03/19/25 03/18/25 Range/Units 07:32 05:36 20:10 WBC 14.59 H (4.8-10.8) K/ul RBC 4.46 (4.20-5.40) M/uL Hgb 11.7 L (12.0-16.0) g/dL Hct 36.1 L (37.0-47.0) % MCV 80.9 (80.0-100.0) fL MCH 26.2 (25.0-34.0) pg MCHC 32.4 (32.0-36.0) g/dL RDW Std Deviation 49.1 H (36.4-46.3) fL RDW Coeff of Malick 17.0 H (11.5-14.5) % Plt Count 340 (130-400) K/uL MPV 10.7 (9.4-12.4) fL Immature Gran % (Auto) 1.9 % Neut % (Auto) 89.9 % Lymph % (Auto) 4.9 % [place] % (Auto) 3.2 % Eos % (Auto) 0.0 % Baso % (Auto) 0.1 % Neut # (Auto) 13.12 H (1.40-6.50) K/uL Lymph # (Auto) 0.72 L (1.20-3.40) K/uL [place] # (Auto) 0.46 (0.11-0.59) K/uL Eos # (Auto) 0.00 (0.00-0.50) K/uL Baso # (Auto) 0.02 (0.00-0.20) K/uL Immature Gran # (Auto) 0.27 H (0.01-0.20) K/uL Absolute Nucleated RBC (0.00-0.12) K/uL Nucleated RBC % (auto) % Polychromasia Ovalocytes PT (9.0-12.0) Seconds INR (0.9-1.1) APTT (21-31) Seconds PTT Ratio Sodium 136 (136-145) mmol/L Potassium 3.8 (3.5-5.1) mmol/L Chloride 96 L (98-107) mmol/L Carbon Dioxide 30 (21-32) mmol/L Anion Gap 10 (3-11) BUN 39 H (6-23) mg/dl Creatinine 0.82 (0.6-1.2) mg/dl Est Cr Clr Drug Dosing 65.1 eGFR 80.32 BUN/Creatinine Ratio (10-20) Glucose (70-99(Fasting)) mg/dl POC Glucose 204 H 221 H (70-99) mg/dl Fasting Glucose 159 H (70-99) mg/dl Calcium 8.7 (8.6-10.3) mg/dl Magnesium 2.0 (1.7-2.4) mg/dl Total Bilirubin (0.2-1.0) mg/dl AST (13-39) U/L ALT (7-52) U/L Alkaline Phosphatase (34-104) U/L Troponin I High Sens (0-14) pg/ml Total Protein (6.0-8.3) gm/dl Albumin (3.4-5.0) gm/dl Globulin (2.5-4.0) gm/dl Albumin/Globulin Ratio (0.9-2) Adenovirus (PCR) (NotDetected) B. pertussis DNA (PCR) (NotDetected) B.parapertussis DNA PCR (NotDetected) C. pneumoniae DNA (PCR) (NotDetected) Coronavirus OC43 (PCR) (NotDetected) Coronavirus HKU1 (PCR) (NotDetected) Coronavirus 229E (PCR) (NotDetected) SARS-CoV-2 (PCR) (NotDetected) Coronavirus NL63 (PCR) (NotDetected) Human Metapneumovir PCR (NotDetected) Influenza Type A (PCR) (NotDetected) Influenza Type B (PCR) (NotDetected) M. pneumoniae (PCR) (NotDetected) Parainfluenza 1 (PCR) (NotDetected) Parainfluenza 2 (PCR) (NotDetected) Parainfluenza 3 (PCR) (NotDetected) Parainfluenza 4 (PCR) (NotDetected) RSV (PCR) (NotDetected) Entero/Rhino (PCR) (NotDetected) Group A Strep (PCR) (NotDetected) 03/18/25 03/18/25 03/18/25 Range/Units 16:15 11:15 07:31 WBC (4.8-10.8) K/ul RBC (4.20-5.40) M/uL Hgb (12.0-16.0) g/dL Hct (37.0-47.0) % MCV (80.0-100.0) fL MCH (25.0-34.0) pg MCHC (32.0-36.0) g/dL RDW Std Deviation (36.4-46.3) fL RDW Coeff of Malick (11.5-14.5) % Plt Count (130-400) K/uL MPV (9.4-12.4) fL Immature Gran % (Auto) % Neut % (Auto) % Lymph % (Auto) % [place] % (Auto) % Eos % (Auto) % Baso % (Auto) % Neut # (Auto) (1.40-6.50) K/uL Lymph # (Auto) (1.20-3.40) K/uL [place] # (Auto) (0.11-0.59) K/uL Eos # (Auto) (0.00-0.50) K/uL Baso # (Auto) (0.00-0.20) K/uL Immature Gran # (Auto) (0.01-0.20) K/uL Absolute Nucleated RBC (0.00-0.12) K/uL Nucleated RBC % (auto) % Polychromasia Ovalocytes PT (9.0-12.0) Seconds INR (0.9-1.1) APTT (21-31) Seconds PTT Ratio Sodium (136-145) mmol/L Potassium (3.5-5.1) mmol/L Chloride (98-107) mmol/L Carbon Dioxide (21-32) mmol/L Anion Gap (3-11) BUN (6-23) mg/dl Creatinine (0.6-1.2) mg/dl Est Cr Clr Drug Dosing eGFR BUN/Creatinine Ratio (10-20) Glucose (70-99(Fasting)) mg/dl POC Glucose 285 H 252 H 189 H (70-99) mg/dl Fasting Glucose (70-99) mg/dl Calcium (8.6-10.3) mg/dl Magnesium (1.7-2.4) mg/dl Total Bilirubin (0.2-1.0) mg/dl AST (13-39) U/L ALT (7-52) U/L Alkaline Phosphatase (34-104) U/L Troponin I High Sens (0-14) pg/ml Total Protein (6.0-8.3) gm/dl Albumin (3.4-5.0) gm/dl Globulin (2.5-4.0) gm/dl Albumin/Globulin Ratio (0.9-2) Adenovirus (PCR) (NotDetected) B. pertussis DNA (PCR) (NotDetected) B.parapertussis DNA PCR (NotDetected) C. pneumoniae DNA (PCR) (NotDetected) Coronavirus OC43 (PCR) (NotDetected) Coronavirus HKU1 (PCR) (NotDetected) Coronavirus 229E (PCR) (NotDetected) SARS-CoV-2 (PCR) (NotDetected) Coronavirus NL63 (PCR) (NotDetected) Human Metapneumovir PCR (NotDetected) Influenza Type A (PCR) (NotDetected) Influenza Type B (PCR) (NotDetected) M. pneumoniae (PCR) (NotDetected) Parainfluenza 1 (PCR) (NotDetected) Parainfluenza 2 (PCR) (NotDetected) Parainfluenza 3 (PCR) (NotDetected) Parainfluenza 4 (PCR) (NotDetected) RSV (PCR) (NotDetected) Entero/Rhino (PCR) (NotDetected) Group A Strep (PCR) (NotDetected) 03/18/25 03/18/25 03/17/25 Range/Units 06:10 02:08 19:53 WBC 14.90 H (4.8-10.8) K/ul RBC 4.47 (4.20-5.40) M/uL Hgb 11.8 L (12.0-16.0) g/dL Hct 36.4 L (37.0-47.0) % MCV 81.4 (80.0-100.0) fL MCH 26.4 (25.0-34.0) pg MCHC 32.4 (32.0-36.0) g/dL RDW Std Deviation 50.4 H (36.4-46.3) fL RDW Coeff of Malick 17.5 H (11.5-14.5) % Plt Count 347 (130-400) K/uL MPV 10.8 (9.4-12.4) fL Immature Gran % (Auto) % Neut % (Auto) % Lymph % (Auto) % [place] % (Auto) % Eos % (Auto) % Baso % (Auto) % Neut # (Auto) (1.40-6.50) K/uL Lymph # (Auto) (1.20-3.40) K/uL [place] # (Auto) (0.11-0.59) K/uL Eos # (Auto) (0.00-0.50) K/uL Baso # (Auto) (0.00-0.20) K/uL Immature Gran # (Auto) (0.01-0.20) K/uL Absolute Nucleated RBC (0.00-0.12) K/uL Nucleated RBC % (auto) % Polychromasia Ovalocytes PT (9.0-12.0) Seconds INR (0.9-1.1) APTT (21-31) Seconds PTT Ratio Sodium 135 L (136-145) mmol/L Potassium 4.2 (3.5-5.1) mmol/L Chloride 96 L (98-107) mmol/L Carbon Dioxide 30 (21-32) mmol/L Anion Gap 9 (3-11) BUN 35 H (6-23) mg/dl Creatinine 0.91 (0.6-1.2) mg/dl Est Cr Clr Drug Dosing 58.7 eGFR 70.89 BUN/Creatinine Ratio 38.5 H (10-20) Glucose 160 H (70-99(Fasting)) mg/dl POC Glucose 188 H 186 H (70-99) mg/dl Fasting Glucose (70-99) mg/dl Calcium 8.8 (8.6-10.3) mg/dl Magnesium (1.7-2.4) mg/dl Total Bilirubin (0.2-1.0) mg/dl AST (13-39) U/L ALT (7-52) U/L Alkaline Phosphatase (34-104) U/L Troponin I High Sens (0-14) pg/ml Total Protein (6.0-8.3) gm/dl Albumin (3.4-5.0) gm/dl Globulin (2.5-4.0) gm/dl Albumin/Globulin Ratio (0.9-2) Adenovirus (PCR) (NotDetected) B. pertussis DNA (PCR) (NotDetected) B.parapertussis DNA PCR (NotDetected) C. pneumoniae DNA (PCR) (NotDetected) Coronavirus OC43 (PCR) (NotDetected) Coronavirus HKU1 (PCR) (NotDetected) Coronavirus 229E (PCR) (NotDetected) SARS-CoV-2 (PCR) (NotDetected) Coronavirus NL63 (PCR) (NotDetected) Human Metapneumovir PCR (NotDetected) Influenza Type A (PCR) (NotDetected) Influenza Type B (PCR) (NotDetected) M. pneumoniae (PCR) (NotDetected) Parainfluenza 1 (PCR) (NotDetected) Parainfluenza 2 (PCR) (NotDetected) Parainfluenza 3 (PCR) (NotDetected) Parainfluenza 4 (PCR) (NotDetected) RSV (PCR) (NotDetected) Entero/Rhino (PCR) (NotDetected) Group A Strep (PCR) (NotDetected) 03/17/25 03/17/25 03/17/25 Range/Units 17:50 16:10 11:24 WBC (4.8-10.8) K/ul RBC (4.20-5.40) M/uL Hgb (12.0-16.0) g/dL Hct (37.0-47.0) % MCV (80.0-100.0) fL MCH (25.0-34.0) pg MCHC (32.0-36.0) g/dL RDW Std Deviation (36.4-46.3) fL RDW Coeff of Malick (11.5-14.5) % Plt Count (130-400) K/uL MPV (9.4-12.4) fL Immature Gran % (Auto) % Neut % (Auto) % Lymph % (Auto) % [place] % (Auto) % Eos % (Auto) % Baso % (Auto) % Neut # (Auto) (1.40-6.50) K/uL Lymph # (Auto) (1.20-3.40) K/uL [place] # (Auto) (0.11-0.59) K/uL Eos # (Auto) (0.00-0.50) K/uL Baso # (Auto) (0.00-0.20) K/uL Immature Gran # (Auto) (0.01-0.20) K/uL Absolute Nucleated RBC (0.00-0.12) K/uL Nucleated RBC % (auto) % Polychromasia Ovalocytes PT (9.0-12.0) Seconds INR (0.9-1.1) APTT (21-31) Seconds PTT Ratio Sodium (136-145) mmol/L Potassium (3.5-5.1) mmol/L Chloride (98-107) mmol/L Carbon Dioxide (21-32) mmol/L Anion Gap (3-11) BUN (6-23) mg/dl Creatinine (0.6-1.2) mg/dl Est Cr Clr Drug Dosing eGFR BUN/Creatinine Ratio (10-20) Glucose (70-99(Fasting)) mg/dl POC Glucose 300 H 367 H* 313 H* (70-99) mg/dl Fasting Glucose (70-99) mg/dl Calcium (8.6-10.3) mg/dl Magnesium (1.7-2.4) mg/dl Total Bilirubin (0.2-1.0) mg/dl AST (13-39) U/L ALT (7-52) U/L Alkaline Phosphatase (34-104) U/L Troponin I High Sens (0-14) pg/ml Total Protein (6.0-8.3) gm/dl Albumin (3.4-5.0) gm/dl Globulin (2.5-4.0) gm/dl Albumin/Globulin Ratio (0.9-2) Adenovirus (PCR) (NotDetected) B. pertussis DNA (PCR) (NotDetected) B.parapertussis DNA PCR (NotDetected) C. pneumoniae DNA (PCR) (NotDetected) Coronavirus OC43 (PCR) (NotDetected) Coronavirus HKU1 (PCR) (NotDetected) Coronavirus 229E (PCR) (NotDetected) SARS-CoV-2 (PCR) (NotDetected) Coronavirus NL63 (PCR) (NotDetected) Human Metapneumovir PCR (NotDetected) Influenza Type A (PCR) (NotDetected) Influenza Type B (PCR) (NotDetected) M. pneumoniae (PCR) (NotDetected) Parainfluenza 1 (PCR) (NotDetected) Parainfluenza 2 (PCR) (NotDetected) Parainfluenza 3 (PCR) (NotDetected) Parainfluenza 4 (PCR) (NotDetected) RSV (PCR) (NotDetected) Entero/Rhino (PCR) (NotDetected) Group A Strep (PCR) (NotDetected) 03/17/25 03/17/25 03/17/25 Range/Units 11:22 07:47 07:35 WBC 15.15 H (4.8-10.8) K/ul RBC 4.77 (4.20-5.40) M/uL Hgb 12.5 (12.0-16.0) g/dL Hct 38.7 (37.0-47.0) % MCV 81.1 (80.0-100.0) fL MCH 26.2 (25.0-34.0) pg MCHC 32.3 (32.0-36.0) g/dL RDW Std Deviation 50.5 H (36.4-46.3) fL RDW Coeff of Malick 17.5 H (11.5-14.5) % Plt Count 344 (130-400) K/uL MPV 10.3 (9.4-12.4) fL Immature Gran % (Auto) % Neut % (Auto) % Lymph % (Auto) % [place] % (Auto) % Eos % (Auto) % Baso % (Auto) % Neut # (Auto) (1.40-6.50) K/uL Lymph # (Auto) (1.20-3.40) K/uL [place] # (Auto) (0.11-0.59) K/uL Eos # (Auto) (0.00-0.50) K/uL Baso # (Auto) (0.00-0.20) K/uL Immature Gran # (Auto) (0.01-0.20) K/uL Absolute Nucleated RBC 0.02 (0.00-0.12) K/uL Nucleated RBC % (auto) 0.1 % Polychromasia Ovalocytes PT (9.0-12.0) Seconds INR (0.9-1.1) APTT (21-31) Seconds PTT Ratio Sodium 132 L (136-145) mmol/L Potassium 4.2 (3.5-5.1) mmol/L Chloride 94 L (98-107) mmol/L Carbon Dioxide 28 (21-32) mmol/L Anion Gap 10 (3-11) BUN 31 H (6-23) mg/dl Creatinine 0.83 (0.6-1.2) mg/dl Est Cr Clr Drug Dosing 64.1 eGFR 79.16 BUN/Creatinine Ratio 37.3 H (10-20) Glucose 251 H (70-99(Fasting)) mg/dl POC Glucose 320 H* 234 H (70-99) mg/dl Fasting Glucose (70-99) mg/dl Calcium 8.9 (8.6-10.3) mg/dl Magnesium (1.7-2.4) mg/dl Total Bilirubin (0.2-1.0) mg/dl AST (13-39) U/L ALT (7-52) U/L Alkaline Phosphatase (34-104) U/L Troponin I High Sens (0-14) pg/ml Total Protein (6.0-8.3) gm/dl Albumin (3.4-5.0) gm/dl Globulin (2.5-4.0) gm/dl Albumin/Globulin Ratio (0.9-2) Adenovirus (PCR) (NotDetected) B. pertussis DNA (PCR) (NotDetected) B.parapertussis DNA PCR (NotDetected) C. pneumoniae DNA (PCR) (NotDetected) Coronavirus OC43 (PCR) (NotDetected) Coronavirus HKU1 (PCR) (NotDetected) Coronavirus 229E (PCR) (NotDetected) SARS-CoV-2 (PCR) (NotDetected) Coronavirus NL63 (PCR) (NotDetected) Human Metapneumovir PCR (NotDetected) Influenza Type A (PCR) (NotDetected) Influenza Type B (PCR) (NotDetected) M. pneumoniae (PCR) (NotDetected) Parainfluenza 1 (PCR) (NotDetected) Parainfluenza 2 (PCR) (NotDetected) Parainfluenza 3 (PCR) (NotDetected) Parainfluenza 4 (PCR) (NotDetected) RSV (PCR) (NotDetected) Entero/Rhino (PCR) (NotDetected) Group A Strep (PCR) (NotDetected) 03/16/25 03/16/25 03/16/25 Range/Units 19:57 16:08 11:12 WBC (4.8-10.8) K/ul RBC (4.20-5.40) M/uL Hgb (12.0-16.0) g/dL Hct (37.0-47.0) % MCV (80.0-100.0) fL MCH (25.0-34.0) pg MCHC (32.0-36.0) g/dL RDW Std Deviation (36.4-46.3) fL RDW Coeff of Malick (11.5-14.5) % Plt Count (130-400) K/uL MPV (9.4-12.4) fL Immature Gran % (Auto) % Neut % (Auto) % Lymph % (Auto) % [place] % (Auto) % Eos % (Auto) % Baso % (Auto) % Neut # (Auto) (1.40-6.50) K/uL Lymph # (Auto) (1.20-3.40) K/uL [place] # (Auto) (0.11-0.59) K/uL Eos # (Auto) (0.00-0.50) K/uL Baso # (Auto) (0.00-0.20) K/uL Immature Gran # (Auto) (0.01-0.20) K/uL Absolute Nucleated RBC (0.00-0.12) K/uL Nucleated RBC % (auto) % Polychromasia Ovalocytes PT (9.0-12.0) Seconds INR (0.9-1.1) APTT (21-31) Seconds PTT Ratio Sodium (136-145) mmol/L Potassium (3.5-5.1) mmol/L Chloride (98-107) mmol/L Carbon Dioxide (21-32) mmol/L Anion Gap (3-11) BUN (6-23) mg/dl Creatinine (0.6-1.2) mg/dl Est Cr Clr Drug Dosing eGFR BUN/Creatinine Ratio (10-20) Glucose (70-99(Fasting)) mg/dl POC Glucose 261 H 139 H 331 H* (70-99) mg/dl Fasting Glucose (70-99) mg/dl Calcium (8.6-10.3) mg/dl Magnesium (1.7-2.4) mg/dl Total Bilirubin (0.2-1.0) mg/dl AST (13-39) U/L ALT (7-52) U/L Alkaline Phosphatase (34-104) U/L Troponin I High Sens (0-14) pg/ml Total Protein (6.0-8.3) gm/dl Albumin (3.4-5.0) gm/dl Globulin (2.5-4.0) gm/dl Albumin/Globulin Ratio (0.9-2) Adenovirus (PCR) (NotDetected) B. pertussis DNA (PCR) (NotDetected) B.parapertussis DNA PCR (NotDetected) C. pneumoniae DNA (PCR) (NotDetected) Coronavirus OC43 (PCR) (NotDetected) Coronavirus HKU1 (PCR) (NotDetected) Coronavirus 229E (PCR) (NotDetected) SARS-CoV-2 (PCR) (NotDetected) Coronavirus NL63 (PCR) (NotDetected) Human Metapneumovir PCR (NotDetected) Influenza Type A (PCR) (NotDetected) Influenza Type B (PCR) (NotDetected) M. pneumoniae (PCR) (NotDetected) Parainfluenza 1 (PCR) (NotDetected) Parainfluenza 2 (PCR) (NotDetected) Parainfluenza 3 (PCR) (NotDetected) Parainfluenza 4 (PCR) (NotDetected) RSV (PCR) (NotDetected) Entero/Rhino (PCR) (NotDetected) Group A Strep (PCR) (NotDetected) 03/16/25 03/16/25 03/16/25 Range/Units 11:12 07:21 07:15 WBC 11.35 H (4.8-10.8) K/ul RBC 4.73 (4.20-5.40) M/uL Hgb 12.2 (12.0-16.0) g/dL Hct 38.6 (37.0-47.0) % MCV 81.6 (80.0-100.0) fL MCH 25.8 (25.0-34.0) pg MCHC 31.6 L (32.0-36.0) g/dL RDW Std Deviation 50.4 H (36.4-46.3) fL RDW Coeff of Malick 17.5 H (11.5-14.5) % Plt Count 354 (130-400) K/uL MPV 11.3 (9.4-12.4) fL Immature Gran % (Auto) 1.6 % Neut % (Auto) 85.2 % Lymph % (Auto) 8.7 % [place] % (Auto) 4.2 % Eos % (Auto) 0.0 % Baso % (Auto) 0.3 % Neut # (Auto) 9.67 H (1.40-6.50) K/uL Lymph # (Auto) 0.99 L (1.20-3.40) K/uL [place] # (Auto) 0.48 (0.11-0.59) K/uL Eos # (Auto) 0.00 (0.00-0.50) K/uL Baso # (Auto) 0.03 (0.00-0.20) K/uL Immature Gran # (Auto) 0.18 (0.01-0.20) K/uL Absolute Nucleated RBC (0.00-0.12) K/uL Nucleated RBC % (auto) % Polychromasia Ovalocytes PT (9.0-12.0) Seconds INR (0.9-1.1) APTT (21-31) Seconds PTT Ratio Sodium 136 (136-145) mmol/L Potassium 4.1 (3.5-5.1) mmol/L Chloride 96 L (98-107) mmol/L Carbon Dioxide 30 (21-32) mmol/L Anion Gap 10 (3-11) BUN 24 H (6-23) mg/dl Creatinine 0.74 (0.6-1.2) mg/dl Est Cr Clr Drug Dosing 71.8 eGFR 90.85 BUN/Creatinine Ratio 32.4 H (10-20) Glucose 189 H (70-99(Fasting)) mg/dl POC Glucose 344 H* 184 H (70-99) mg/dl Fasting Glucose (70-99) mg/dl Calcium 9.3 (8.6-10.3) mg/dl Magnesium 2.4 (1.7-2.4) mg/dl Total Bilirubin (0.2-1.0) mg/dl AST (13-39) U/L ALT (7-52) U/L Alkaline Phosphatase (34-104) U/L Troponin I High Sens (0-14) pg/ml Total Protein (6.0-8.3) gm/dl Albumin (3.4-5.0) gm/dl Globulin (2.5-4.0) gm/dl Albumin/Globulin Ratio (0.9-2) Adenovirus (PCR) (NotDetected) B. pertussis DNA (PCR) (NotDetected) B.parapertussis DNA PCR (NotDetected) C. pneumoniae DNA (PCR) (NotDetected) Coronavirus OC43 (PCR) (NotDetected) Coronavirus HKU1 (PCR) (NotDetected) Coronavirus 229E (PCR) (NotDetected) SARS-CoV-2 (PCR) (NotDetected) Coronavirus NL63 (PCR) (NotDetected) Human Metapneumovir PCR (NotDetected) Influenza Type A (PCR) (NotDetected) Influenza Type B (PCR) (NotDetected) M. pneumoniae (PCR) (NotDetected) Parainfluenza 1 (PCR) (NotDetected) Parainfluenza 2 (PCR) (NotDetected) Parainfluenza 3 (PCR) (NotDetected) Parainfluenza 4 (PCR) (NotDetected) RSV (PCR) (NotDetected) Entero/Rhino (PCR) (NotDetected) Group A Strep (PCR) (NotDetected) 03/15/25 03/15/25 03/15/25 Range/Units 20:42 16:29 15:19 WBC (4.8-10.8) K/ul RBC (4.20-5.40) M/uL Hgb (12.0-16.0) g/dL Hct (37.0-47.0) % MCV (80.0-100.0) fL MCH (25.0-34.0) pg MCHC (32.0-36.0) g/dL RDW Std Deviation (36.4-46.3) fL RDW Coeff of Malick (11.5-14.5) % Plt Count (130-400) K/uL MPV (9.4-12.4) fL Immature Gran % (Auto) % Neut % (Auto) % Lymph % (Auto) % [place] % (Auto) % Eos % (Auto) % Baso % (Auto) % Neut # (Auto) (1.40-6.50) K/uL Lymph # (Auto) (1.20-3.40) K/uL [place] # (Auto) (0.11-0.59) K/uL Eos # (Auto) (0.00-0.50) K/uL Baso # (Auto) (0.00-0.20) K/uL Immature Gran # (Auto) (0.01-0.20) K/uL Absolute Nucleated RBC (0.00-0.12) K/uL Nucleated RBC % (auto) % Polychromasia Ovalocytes PT (9.0-12.0) Seconds INR (0.9-1.1) APTT (21-31) Seconds PTT Ratio Sodium (136-145) mmol/L Potassium (3.5-5.1) mmol/L Chloride (98-107) mmol/L Carbon Dioxide (21-32) mmol/L Anion Gap (3-11) BUN (6-23) mg/dl Creatinine (0.6-1.2) mg/dl Est Cr Clr Drug Dosing eGFR BUN/Creatinine Ratio (10-20) Glucose (70-99(Fasting)) mg/dl POC Glucose 266 H (70-99) mg/dl Fasting Glucose (70-99) mg/dl Calcium (8.6-10.3) mg/dl Magnesium (1.7-2.4) mg/dl Total Bilirubin (0.2-1.0) mg/dl AST (13-39) U/L ALT (7-52) U/L Alkaline Phosphatase (34-104) U/L Troponin I High Sens 19.5 H (0-14) pg/ml Total Protein (6.0-8.3) gm/dl Albumin (3.4-5.0) gm/dl Globulin (2.5-4.0) gm/dl Albumin/Globulin Ratio (0.9-2) Adenovirus (PCR) (NotDetected) B. pertussis DNA (PCR) (NotDetected) B.parapertussis DNA PCR (NotDetected) C. pneumoniae DNA (PCR) (NotDetected) Coronavirus OC43 (PCR) (NotDetected) Coronavirus HKU1 (PCR) (NotDetected) Coronavirus 229E (PCR) (NotDetected) SARS-CoV-2 (PCR) (NotDetected) Coronavirus NL63 (PCR) (NotDetected) Human Metapneumovir PCR (NotDetected) Influenza Type A (PCR) (NotDetected) Influenza Type B (PCR) (NotDetected) M. pneumoniae (PCR) (NotDetected) Parainfluenza 1 (PCR) (NotDetected) Parainfluenza 2 (PCR) (NotDetected) Parainfluenza 3 (PCR) (NotDetected) Parainfluenza 4 (PCR) (NotDetected) RSV (PCR) (NotDetected) Entero/Rhino (PCR) (NotDetected) Group A Strep (PCR) NOT DETECTED (NotDetected) 03/15/25 03/15/25 Range/Units 14:45 14:32 WBC 13.35 H (4.8-10.8) K/ul RBC 4.87 (4.20-5.40) M/uL Hgb 12.8 (12.0-16.0) g/dL Hct 40.4 (37.0-47.0) % MCV 83.0 (80.0-100.0) fL MCH 26.3 (25.0-34.0) pg MCHC 31.7 L (32.0-36.0) g/dL RDW Std Deviation 52.1 H (36.4-46.3) fL RDW Coeff of Malick 17.8 H (11.5-14.5) % Plt Count 351 (130-400) K/uL MPV 10.0 (9.4-12.4) fL Immature Gran % (Auto) 1.4 % Neut % (Auto) 92.3 % Lymph % (Auto) 4.8 % [place] % (Auto) 1.4 % Eos % (Auto) 0.0 % Baso % (Auto) 0.1 % Neut # (Auto) 12.31 H (1.40-6.50) K/uL Lymph # (Auto) 0.64 L (1.20-3.40) K/uL [place] # (Auto) 0.19 (0.11-0.59) K/uL Eos # (Auto) 0.00 (0.00-0.50) K/uL Baso # (Auto) 0.02 (0.00-0.20) K/uL Immature Gran # (Auto) 0.19 (0.01-0.20) K/uL Absolute Nucleated RBC (0.00-0.12) K/uL Nucleated RBC % (auto) % Polychromasia 1+ Ovalocytes 1+ PT 11.4 (9.0-12.0) Seconds INR 1.1 (0.9-1.1) APTT 24 (21-31) Seconds PTT Ratio 0.9 Sodium 136 (136-145) mmol/L Potassium 4.1 (3.5-5.1) mmol/L Chloride 95 L (98-107) mmol/L Carbon Dioxide 30 (21-32) mmol/L Anion Gap 11 (3-11) BUN 25 H (6-23) mg/dl Creatinine 0.93 (0.6-1.2) mg/dl Est Cr Clr Drug Dosing Not Reportable eGFR 69.06 BUN/Creatinine Ratio 26.9 H (10-20) Glucose 225 H (70-99(Fasting)) mg/dl POC Glucose (70-99) mg/dl Fasting Glucose (70-99) mg/dl Calcium 9.3 (8.6-10.3) mg/dl Magnesium (1.7-2.4) mg/dl Total Bilirubin 0.3 (0.2-1.0) mg/dl AST 11 L (13-39) U/L ALT 14 (7-52) U/L Alkaline Phosphatase 107 H (34-104) U/L Troponin I High Sens 21.3 H (0-14) pg/ml Total Protein 7.1 (6.0-8.3) gm/dl Albumin 3.9 (3.4-5.0) gm/dl Globulin 3.2 (2.5-4.0) gm/dl Albumin/Globulin Ratio 1.2 (0.9-2) Adenovirus (PCR) Not Detected (NotDetected) B. pertussis DNA (PCR) Not Detected (NotDetected) B.parapertussis DNA PCR Not Detected (NotDetected) C. pneumoniae DNA (PCR) Not Detected (NotDetected) Coronavirus OC43 (PCR) Not Detected (NotDetected) Coronavirus HKU1 (PCR) Not Detected (NotDetected) Coronavirus 229E (PCR) Not Detected (NotDetected) SARS-CoV-2 (PCR) Not Detected (NotDetected) Coronavirus NL63 (PCR) Not Detected (NotDetected) Human Metapneumovir PCR Not Detected (NotDetected) Influenza Type A (PCR) Not Detected (NotDetected) Influenza Type B (PCR) Not Detected (NotDetected) M. pneumoniae (PCR) Not Detected (NotDetected) Parainfluenza 1 (PCR) Not Detected (NotDetected) Parainfluenza 2 (PCR) Not Detected (NotDetected) Parainfluenza 3 (PCR) Not Detected (NotDetected) Parainfluenza 4 (PCR) Not Detected (NotDetected) RSV (PCR) Not Detected (NotDetected) Entero/Rhino (PCR) Not Detected (NotDetected) Group A Strep (PCR) (NotDetected) Diagnostic Findings Chest X-Ray 03/15/25 14:18 XR chest 1V not portable CLINICAL HISTORY: Chest pain, nonspecific COMPARISON STUDY: 02/23/2025 FINDINGS: Heart size and pulmonary vasculature are normal. No consolidation or pleural effusion. No pneumothorax. IMPRESSION: No acute findings. ACT 112: Negative or not required by law. Electronically signed by: Jas Lancaster M.D. 03/15/2025 3:07 PM Barium Swallow X-Ray 03/20/25 13:00 FL barium swallow CLINICAL HISTORY: assess esophageal function. TECHNIQUE: Barium contrast and effervescent crystals were administered to the patient under fluoroscopic examination. Multiple images were obtained and submitted for review. FLUOROSCOPY TIME: 24 seconds FLUOROSCOPY IMAGES: 20 Ka,r: 8 mGy COMPARISON: None FINDINGS: Exam is limited and abbreviated due to patient inability to tolerate the exam. There are tertiary contractions of the esophagus and reduced esophageal motility. There is esophageal mucosal irregularity suggesting esophagitis. There is irregularity at the distal esophagus which could represent a portion diverticulum measuring approximately 1 cm versus distal esophageal mass. No gross hiatal hernia seen. IMPRESSION: 1. Limited exam. 2. Findings suggesting esophagitis. 3. Posterior diverticulum versus mass at the distal esophagus. Endoscopy is suggested. ACT 112: Positive. There are findings on this exam that require communication between the performing entity and the patient following Patient Test Result Information Act ([place] Act 112) guidelines. The above report was generated using voice recognition software. It may contain grammatical, syntax or spelling errors. Electronically signed by: Jas Lancaster M.D. 03/20/2025 2:34 PM PG Care Time/CCT Total # of Minutes Spent Total Time Spent with Patient: Total time spent is greater than 50% in coordination of care (as documented) at patient's floor/unit and/or counseling patient: I spent 130 minutes overall addressing this case: 20 min in medical data review/discussion with referring provider(s) and/or preparation for the visit incl OSH data 20 min in direct interaction with the patient/exam 60 min in Advance Care Planning/Goals of Care discussions as detailed above in note (must be >16min) 15 min in subsequent review and synthesis of assessment and plan 15 min communicating with other providers regarding the patient's case: primary team Advanced Care Planning 39142 Advanced Care Planning Additional 30 [place] [address] IN/OBS CONSULT LVL 5,80M (25 - SIGNIFICANT, SEPARATELY IDENTIFIABLE ) Patient Type New Medical Decision Making High Complexity Diagnoses Cancer related pain G89.3 Dyspnea and respiratory abnormalities R06.00; R06.89 Weakness generalized R53.1 Chronic venous insufficiency I87.2 Anxiety F41.9 Palliative care by specialist Z51.5 Advanced care planning/counseling discussion Z71.89 Tobacco abuse Z72.0 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
[2025-03-21] MEDS ORDERED: clonazePAM 0.5 MG TAB PO SCH (15:00)
[2025-03-21] MEDS: clonazePAM 0.5 MG TAB PO SCH (15:14)
--- NOTE | 2025-03-21 18:05 | Billing Data ---
Date of Service March 21, 2025 Coding Level of Care Code 05218 SUB INP/OBS CARE
[2025-03-21] MEDS: ONDANSETRON 4 MG OD TAB PO PRN (19:37)
--- NOTE | 2025-03-22 07:30 | Hospitalist Progress Note ---
Date of Service March 22, 2025 Assessment & Plan (1) Chronic heart failure with preserved ejection fraction (HFpEF): (2) Diabetes mellitus type 2, uncontrolled: (3) Generalized anxiety disorder: (4) Tobacco abuse counseling: (5) Cancer related pain: Plan Patient is a 64 y/o F PMHx severe COPD, CHF, T2DM, hx DVT on lovenox, ELEUTERIO, tobacco dependence, and multiple myeloma s/p stem cell transplant who is admitted for worsening shortness of breath, cough, and chest discomfort for 3 days likely in the setting of COPD exacerbation. Requires continued admission for further evaluation and treatment of acute illness: currently treating suspected candidal esophagitis, COPD exacerbation, and CAP which are being treated accordingly. Downgraded to med/surg as pt no longer requires continuous cardiac monitoring. #COPD exacerbation - CXR in ED w/o pulmonary edema or consolidation - last spirometry 03/18/2024 - COPD with FEV1 46% ; [facility] - continue home Trelegy 200, PRN levalbuterol and ipratropium. - current treatment: - DuoNebs q4h - transitioned to prednisone 40mg qAM- on day 2 of oral - umeclidinium/vilant 62.5/25mcg 1 puff daily - guaifenesin BID - CBC, BMP AM #Leukocytosis, CAP vs HAP Resp biofire negative; leukocytosis likely due to systemic steroids - abx de-escalated to Augmentin 875mg BID and doxycycline 100mg BID PO - pulmonary regimen as above for COPD exacerbation #dysphagia #pharyngitis/esophagitis Sensation of food getting stuck in esophagus, solids predominantly Has been tolerating reg diet reasonably well, ordered texture as "slippery" to help with easy passage down esophagus - Barium swallow 03/21 revealing esophagitis and lower esophageal diverticulum vs mass due to history of steroids both systemic and inhaled, suspecting candidal esophagitis and treating as such: - continue fluconazole 300mg daily (based on weight) for 2wks halved dose of colchicine as this is known to raise fluconazole levels: if joint pain worsens, will consider returning to usual colchicine dose and decreasing fluconazole accordingly - continue chlorasceptic spray #uncontrolled T2DM -last a1c 8% in December - glucose stable - continue lantus 45 units daily - novolog - parameters: correction factor 20, carb ratio 1:5, goal range 110- 180 - continue BSGs ac/hs #anxiety, suspect reason for sinus tachycardia - continue clonazepam 0.5mg TID - seroquel 200mg daily #Constipation ordered as needed glycerin suppository and fleet enema, pt may choose per pr eference #cancer related pain - following with palliative care, most recent visit 03/09/25, continue perocet 5/325 po q6h prn #tobacco dependence -nicoderm patch 7mg/day discontinued due to pt noncompliance and refusal #history of DVT 2020 - lovenox 150mg daily #chronic HFpEF - -appears euvolemic today there is chronic pedal edema BL however stable in the setting of her chronic venous stasis -[place] [place] [facility] -cont bumex 4mg daily -cont aldactone 100mg BID #ELEUTERIO -BIPAP HS & with naps DVT: lovenox Dispo: med/tele Admission and Anticipated Discharge Date Admission Date: March 15, 2025 Supervising Physician Co-Signing Physician Notes Resident Physician Supervision Note: I personally examined the patient and verified all rosario points of history and exam, discussed case, and agree with decision making with Dr. Guadarrama I discussed the case with the resident and agree with the findings and plan as documented in the note. Any exceptions or clarifications are listed here: None Patient presented with some respiratory distress with concern for pneumonia with a background history of heart failure preserved ejection fraction and COPD. Patient was having some swallowing difficulties and does give a history of having difficulty with solids video fluoroscopy scopic swallowing study was done 03/20 with significant abnormalities seen in the esophagus by video imaging. Given the patient had an endoscopy in February 21, 2025 normal esophagus this likely may imply this could be esophagitis from infection or reflux. gastroenterology not feel further invasive investigation was warranted. Will treat periodically for fungal esophagitis at this time given steroid use and stressors. Otherwise patient's respiratory status remains in good control she is mildly short of breath with exertion she remains without requiring any oxygen. Lungs some coarse breath sounds with poor air movement Patient had a lengthy discussion regarding her symptomatology and end-of-life given her concern that her bone marrow transplant may be nearing its end of usefulness. She is appreciated of palliative care amendments to medications and changing her CODE STATUS to DNR. She is mostly concerned about consitipation and targets home by weeks end Documented By: Kaiden Calabrese MD Subjective No overnight events. Endorses this morning she felt a bit short of breath. Still tolerating regular diet with some swallowing difficulty. She still denies fever, chills, CP, nausea/vomiting, abdominal pain, urinary complaints Physical Exam Physical Exam: Gen: appearing in no acute distress CV: tachycardic regular, no m/r/g Resp: scattered wheeze in all lung osriano though improved from prior exam, no obvious rales/rhonchi; b/l symmetrically decreased breath sounds especially on exhalation MSK: no peripheral edema; scattered bandages on b/l UE, not currently bleeding and nontender to palpation Results & Data Results & Data Vital Signs (Past 12 Hours) Vital Signs Temp Pulse Resp BP Pulse Ox O2 Del Method 03/22/25 06:58 103 H 16 94 Room Air 03/22/25 03:42 36.7 C 69 18 128/80 96 Room Air 03/21/25 23:35 36.8 C 110 H 18 103/66 92 Room Air 03/21/25 22:44 Room Air 03/21/25 20:15 36.7 C 106 H 18 138/78 99 Room Air 03/21/25 19:41 96 H 18 94 Room Air Resident Activity Tracking Resident Involvement: Resident Care Provided Care Provided: Adult Hospital Medicine (2) Diabetes mellitus type 2, uncontrolled Glycemic state: with hyperglycemia Qualified Code(s): E11.65 - Type 2 diabetes mellitus with hyperglycemia
[2025-03-22 08:05] LABS: Hematocrit (blood only) 40.0 % (37.0-47.0); Hemoglobin 12.9 g/dL (12.0-16.0); Mean Corpuscular Hemoglobin 25.9 pg (25.0-34.0); Mean Corpuscular Volume 80.3 fL (80.0-100.0); Platelet Count 336 K/uL (130-400); RDW Standard Deviation 50.3 fL (36.4-46.3); Red Blood Count 4.98 M/uL (4.20-5.40); White Blood Count 16.43 K/ul (4.8-10.8)
[2025-03-22 08:27] LABS: Anion Gap 11.0 (3-11); Blood Urea Nitrogen 44.0 mg/dl (6-23); Calcium 9.2 mg/dl (8.6-10.3); Carbon Dioxide 30.0 mmol/L (21-32); Chloride 93.0 mmol/L (98-107); Creatinine Clr Calc Pharmacy 64.3 ml/min; Glucose 184.0 mg/dl (70-99(Fasting)); Potassium 3.7 mmol/L (3.5-5.1); Sodium 134.0 mmol/L (136-145)
[2025-03-22] MEDS: INSULIN ASPART PER UNIT CHARGE SC SCH ×2 (08:42→17:39)
[2025-03-22] MEDS: LANTUS PER UNIT CHARGE SQ SCH (08:43)
[2025-03-22] MEDS: COLCHICINE 0.6 MG TAB PO SCH (08:46)
[2025-03-22] MEDS: predniSONE 20 MG TAB PO SCH (08:48)
--- NOTE | 2025-03-22 11:45 | Palliative Care Progress Note ---
Date of Service March 22, 2025 Assessment & Plan (1) Dyspnea and respiratory abnormalities: (2) Weakness generalized: (3) Headache: Plan: Continue Acetaminophen 650 mg PO Q4H PRN pt states her headache is relieved with combination of tylenol and coffee. Cup of coffee provided. (4) Cancer related pain: Plan: Pain well managed with Oxy 5mg 2-3x/day per pt report. Continue Oxycodone/Acetaminophen 5mg/325mg 1 tab PO Q6H PRN Per previous palliative care notes: "Discussed with med onc; She does NOT have recurrent myeloma. She DOES have MDS which will be treated supportively with transfusions etc as needed." She is under surveillance for progression ot MM (5) Anxiety: Plan: Pt denies active anxiety, states that she feels slightly drowsy since increase in clonazepam dose yesterday, but does not wish to make any changes at this time. She did state that if clonazapam continues to make her drowsy she would prefer to return to xanax as her anxiolytic. Given recent change in dosing some drowsiness is not unusual, will continue to monitor for improvement in drowsiness given adequate coverage of anxiety. Continue: Clonazepam 0.5 Mg PO TID (6) Palliative care by specialist: Plan: Palliative care will continue to follow for ongoing pain/symptom mgmt and patient support. Plan as above Admission and Anticipated Discharge Date Admission Date: March 15, 2025 Subjective Met with pt at bedside, no visitors present. She was recumbent in bed, with lights off. She was alert and c/o mild headache that she described as "like my migraines". She shared that she has recently rec'd oxyIR for pain and her headache is improving as expected. Review of Systems Review of Systems: All systems reviewed & are unremarkable except as noted in Subjective Physical Exam Constitutional: well developed, + acute distress, cooperative and + in distress Eyes: PERRL, conjunctivae normal, anicteric sclerae ENMT: Mouth: + dry oral mucous membranes Neck: trachea midline, no thyromegaly Respiratory: + respiratory distress and symmetric [address] movement Auscultation: + diminished lung sounds Cardiovascular: RRR, no murmur, no edema Rate/Rhythm: + tachycardic Chest (Breasts): Breast: normal inspection of axillae and + breast mass (hard slightly nodular mass approx 2inches, Left Upper outer quadrant) Gastrointestinal (Abdomen): Inspection/Auscultation: normal bowel sounds Percussion/Palpation: abdomen soft Musculoskeletal: gen weakness Skin: scatt ecchymoses BLE and BUE wound dressings Neurologic: antalgic Psychiatric: Orientation: alert and oriented x 3 Apperance: appropriately dressed Eye Contact: + fair eye contact Speech: + pressured speech Affect: + depressed affect, + anxious affect and + tearful affect Thought Process: + flight of ideas and + perseveration Thought Content: + preoccupation, + thought insertion, + persecution, + hopelessness and + loneliness Estimated Intelligence: consistent with education level Results & Data Vital Signs (Past 12 Hours) Vital Signs Temp Pulse Pulse Resp BP Pulse Ox O2 Del Method 03/22/25 11:02 68 16 96 Room Air 03/22/25 07:52 101 H 03/22/25 07:30 36.8 C 110 H 19 128/86 92 Room Air 03/22/25 06:58 103 H 16 94 Room Air 03/22/25 03:42 36.7 C 69 18 128/80 96 Room Air Laboratory Results Abnormal lab results 03/21/25 03/21/25 03/22/25 Range/Units 16:36 20:38 06:31 WBC 16.43 H (4.8-10.8) K/ul RDW Std Deviation 50.3 H (36.4-46.3) fL RDW Coeff of Malick 17.7 H (11.5-14.5) % Sodium 134 L (136-145) mmol/L Chloride 93 L (98-107) mmol/L BUN 44 H (6-23) mg/dl BUN/Creatinine Ratio 54.3 H (10-20) Glucose 184 H (70-99(Fasting)) mg/dl POC Glucose 274 H 250 H (70-99) mg/dl 03/22/25 03/22/25 Range/Units 07:36 11:22 WBC (4.8-10.8) K/ul RDW Std Deviation (36.4-46.3) fL RDW Coeff of Malick (11.5-14.5) % Sodium (136-145) mmol/L Chloride (98-107) mmol/L BUN (6-23) mg/dl BUN/Creatinine Ratio (10-20) Glucose (70-99(Fasting)) mg/dl POC Glucose 211 H 265 H (70-99) mg/dl Diagnostic Findings Chest X-Ray 03/15/25 14:18 XR chest 1V not portable CLINICAL HISTORY: Chest pain, nonspecific COMPARISON STUDY: 02/23/2025 FINDINGS: Heart size and pulmonary vasculature are normal. No consolidation or pleural effusion. No pneumothorax. IMPRESSION: No acute findings. ACT 112: Negative or not required by law. Electronically signed by: Jas Lancaster M.D. 03/15/2025 3:07 PM Barium Swallow X-Ray 03/20/25 13:00 FL barium swallow CLINICAL HISTORY: assess esophageal function. TECHNIQUE: Barium contrast and effervescent crystals were administered to the patient under fluoroscopic examination. Multiple images were obtained and submitted for review. FLUOROSCOPY TIME: 24 seconds FLUOROSCOPY IMAGES: 20 Ka,r: 8 mGy COMPARISON: None FINDINGS: Exam is limited and abbreviated due to patient inability to tolerate the exam. There are tertiary contractions of the esophagus and reduced esophageal motility. There is esophageal mucosal irregularity suggesting esophagitis. There is irregularity at the distal esophagus which could represent a portion diverticulum measuring approximately 1 cm versus distal esophageal mass. No gross hiatal hernia seen. IMPRESSION: 1. Limited exam. 2. Findings suggesting esophagitis. 3. Posterior diverticulum versus mass at the distal esophagus. Endoscopy is sug gested. ACT 112: Positive. There are findings on this exam that require communication between the performing entity and the patient following Patient Test Result Information Act ([place] Act 112) guidelines. The above report was generated using voice recognition software. It may contain grammatical, syntax or spelling errors. Electronically signed by: Jas Lancaster M.D. 03/20/2025 2:34 PM Medications Administered Current Inpatient Medications Acetaminophen (Acetaminophen 325 Mg Tab) 650 mg PO Q4H PRN PRN Reason: Pain or Fever Stop: 04/14/25 20:36 Albuterol (Albuterol Hfa 8 Gm Inhaler) 2 puffs INH Q4H PRN PRN Reason: Shortness Of Breath Or Wheezing Stop: 04/14/25 20:36 Albuterol (Albut/Ipratrop 3mg/0.5mg Neb 3 Ml Vial) 3 ml INH Q4R [facility]; Protocol Stop: 04/15/25 14:59 Last Admin: 03/22/25 11:02 Dose: 3 ml Allopurinol (Allopurinol 300 Mg Tab) 300 mg PO QAM [facility] Stop: 04/15/25 08:59 Last Admin: 03/22/25 08:45 Dose: 300 mg Amoxicillin/Clavulanate Potassium (Amoxicillin/Clavulanate 875 Mg Tab) 1 tab PO BIDM [facility]; Protocol Stop: 03/27/25 16:59 Budesonide (Budesonide 0.25 Mg/2 Ml Vial (Pulmicort)) 0.25 mg INH BID [facility] Stop: 04/14/25 20:59 Last Admin: 03/22/25 06:57 Dose: 0.25 mg Bumetanide (Bumetanide 1 Mg Tab) 4 mg PO BID@0800,1700 [facility] Stop: 04/15/25 07:59 Last Admin: 03/22/25 08:47 Dose: 4 mg Citalopram Hydrobromide (Citalopram 20 Mg Tab) 20 mg PO HS [facility] Stop: 04/14/25 20:59 Last Admin: 03/21/25 21:09 Dose: 20 mg Clonazepam (Clonazepam 0.5 Mg Tab) 0.5 mg PO TID@1000,1500,2200 [facility] Stop: 04/20/25 14:59 Last Admin: 03/22/25 10:08 Dose: 0.5 mg Colchicine (Colchicine 0.6 Mg Tab) 0.3 mg PO QAM [facility] Stop: 04/21/25 08:59 Last Admin: 03/22/25 08:46 Dose: 0.3 mg Dextrose (Dextrose 50% 50 Ml Syringe) 25 - 50 ml IV UD PRN; Protocol PRN Reason: Hypoglycemia Protocol Stop: 04/14/25 20:36 Doxycycline Hyclate (Doxycycline Hyclate 100 Mg Cap) 100 mg PO BID [facility] Stop: 03/27/25 20:59 Enoxaparin Sodium (Enoxaparin 150 Mg/Ml Syr) 150 mg SC Q24H [facility] Stop: 04/15/25 07:59 Last Admin: 03/22/25 08:43 Dose: 150 mg Fluconazole (Fluconazole 100 Mg Tab) 300 mg PO QAM [facility] Stop: 04/03/25 11:14 Last Admin: 03/22/25 08:44 Dose: 300 mg Glucagon (Glucagon For Inj 1 Mg Vial) 1 mg SQ UD PRN; Protocol PRN Reason: Hypoglycemia Protocol Stop: 04/14/25 20:36 Glucose (Glucose 40% Gel 15 Gm Tube) 15 - 30 gm PO UD PRN; Protocol PRN Reason: Hypoglycemia Protocol Stop: 04/14/25 20:36 Glucose (Glucose 10 Tab/Tube) 4 - 8 tab PO UD PRN; Protocol PRN Reason: Hypoglycemia Protocol Stop: 04/14/25 20:36 Guaifenesin (Guaifenesin Sugar Free 100 Mg/5 Ml Udc) 200 mg PO Q4H PRN PRN Reason: Cough Stop: 04/14/25 20:46 Insulin Aspart (Insulin Aspart Per Unit Charge) 0 units SC 0730,1130 [facility] Stop: 04/14/25 20:59 Last Admin: 03/22/25 08:42 Dose: 25 units Insulin Aspart (Insulin Aspart Per Unit Charge) 0 units SC 1630,2100 [facility] Stop: 04/21/25 16:29 Insulin Glargine (Lantus Per Unit Charge) 55 units SQ QAM [facility] Stop: 04/20/25 08:59 Last Admin: 03/22/25 08:43 Dose: 55 units Melatonin (Melatonin 3 Mg Tab) 3 mg PO HS PRN PRN Reason: Sleep Stop: 04/14/25 20:36 Last Admin: 03/21/25 21:20 Dose: 3 mg Miscellaneous (Carbohydrates For Hypoglycemia ) 15 - 30 gm PO UD PRN PRN Reason: Hypoglycemia Protocol Stop: 04/14/25 20:36 Miscellaneous (Remove Nicoderm Patch) 1 each N/A DAILY@0859 [facility] Stop: 04/15/25 08:58 Last Admin: 03/22/25 08:47 Dose: Not Given Miscellaneous Information (Pharmacy Glycemic Mgmt Consult) 1 each N/A UD PRN; Protocol PRN Reason: Consult Stop: 04/16/25 16:23 Ondansetron HCl (Ondansetron 4 Mg Od Tab) 4 mg PO Q8H PRN PRN Reason: NAUSEA/VOMITING Stop: 04/14/25 20:36 Last Admin: 03/21/25 19:37 Dose: 4 mg Oxycodone/Acetaminophen (Oxycodone/Acetaminophen 5mg/325mg Tab) 1 tab PO Q6H PRN PRN Reason: cancer pain Stop: 03/29/25 20:36 Last Admin: 03/22/25 10:08 Dose: 1 tab Pantoprazole Sodium (Pantoprazole 40 Mg Tab) 40 mg PO BID [facility] Stop: 04/14/25 20:59 Last Admin: 03/22/25 08:45 Dose: 40 mg Phenol (Chloraseptic (Phenol) 1.4% Soln 180 Ml Btl) 2 sprays MT Q4H PRN PRN Reason: Sore Throat Stop: 04/19/25 15:50 Polyethylene Glycol (Polyethylene (Miralax) 17 Gm Pack) 17 gm PO DAILY PRN PRN Reason: Constipation Stop: 04/14/25 20:36 Prednisone (Prednisone 20 Mg Tab) 40 mg PO DAILY [facility] Stop: 04/21/25 08:59 Last Admin: 03/22/25 08:48 Dose: 40 mg Quetiapine Fumarate (Quetiapine Fumarate 200 Mg Tab) 200 mg PO HS [facility] Stop: 04/14/25 20:59 Last Admin: 03/21/25 21:09 Dose: 200 mg Spironolactone (Spironolactone 100 Mg Tab) 100 mg PO DAILY [facility] Stop: 04/15/25 08:59 Last Admin: 03/22/25 08:44 Dose: 100 mg Umeclidinium/Vilanterol (Umeclidinium/Vilanterol 62.5/25mcg 7 Puffs/Inhaler) 1 puffs INH DAILY [facility] Stop: 04/16/25 13:14 Last Admin: 03/22/25 08:46 Dose: 1 puffs PG Care Time/CCT Total # of Minutes Spent Total Time Spent with Patient: Total time spent is greater than 50% in coordination of care (as documented) at patient's floor/unit and/or counseling patient: Coding [place] [address] SUB INP/OBS CARE 2/35MIN Patient Type Established History Expanded Problem Focused Exam Expanded Problem Focused Medical Decision Making Moderate Complexity Diagnoses Dyspnea and respiratory abnormalities R06.00; R06.89 Weakness generalized R53.1 Headache R51.9 Cancer related pain G89.3 Anxiety F41.9 Palliative care by specialist Z51.5
[2025-03-22] MEDS ORDERED: SOD PHOSPHATE/SOD BIPHOSPHATE ENEMA 132 ML BTL PR PRN (14:52)
[2025-03-22] MEDS ORDERED: GLYCERIN ADULT 12 SUPP/BOX SUPP PR PRN (15:09)
--- NOTE | 2025-03-22 16:56 | Billing Data ---
Date of Service March 22, 2025 Coding Level of Care Code 10453 SUB INP/OBS CARE
[2025-03-22] MEDS: AMOXICILLIN/CLAVULANATE 875 MG TAB PO SCH (17:41)
[2025-03-22] MEDS: DOXYCYCLINE HYCLATE 100 MG CAP PO SCH (20:15)
[2025-03-23 07:28] LABS: Hematocrit (blood only) 38.1 % (37.0-47.0); Hemoglobin 12.6 g/dL (12.0-16.0); Mean Corpuscular Hemoglobin 26.3 pg (25.0-34.0); Mean Corpuscular Volume 79.5 fL (80.0-100.0); Platelet Count 332 K/uL (130-400); RDW Standard Deviation 49.1 fL (36.4-46.3); Red Blood Count 4.79 M/uL (4.20-5.40); White Blood Count 18.05 K/ul (4.8-10.8)
[2025-03-23 08:06] LABS: Anion Gap 13.0 (3-11); Blood Urea Nitrogen 54.0 mg/dl (6-23); Calcium 9.2 mg/dl (8.6-10.3); Carbon Dioxide 29.0 mmol/L (21-32); Chloride 93.0 mmol/L (98-107); Creatinine Clr Calc Pharmacy 52.6 ml/min; Glucose 121.0 mg/dl (70-99(Fasting)); Potassium 4.0 mmol/L (3.5-5.1); Sodium 135.0 mmol/L (136-145)
[2025-03-23] MEDS: clonazePAM 0.5 MG TAB PO SCH (09:03)
--- NOTE | 2025-03-23 10:17 | Hospitalist Progress Note ---
Date of Service March 23, 2025 Assessment & Plan (1) Chronic heart failure with preserved ejection fraction (HFpEF): (2) Diabetes mellitus type 2, uncontrolled: (3) Generalized anxiety disorder: (4) Tobacco abuse counseling: (5) Cancer related pain: Plan Patient is a 64 y/o F PMHx severe COPD, CHF, T2DM, hx DVT on lovenox, ELEUTERIO, tobacco dependence, and multiple myeloma s/p stem cell transplant who is admitted for worsening shortness of breath, cough, and chest discomfort for 3 days likely in the setting of COPD exacerbation. Requires continued admission for further evaluation and treatment of acute illness: currently treating suspected candidal esophagitis, COPD exacerbation, and CAP which are being treated accordingly. #COPD exacerbation - CXR in ED w/o pulmonary edema or consolidation - last spirometry 03/18/2024 - COPD with FEV1 46% ; following with [facility]. - continue home Trelegy 200, PRN levalbuterol and ipratropium. - current treatment: - DuoNebs q4h - transitioned to prednisone 40mg qAM- on day 3 of oral - umeclidinium/vilant 62.5/25mcg 1 puff daily - guaifenesin BID - CBC, BMP AM #Leukocytosis, CAP vs HAP Resp biofire negative; leukocytosis likely due to systemic steroids - abx de-escalated to Augmentin 875mg BID and doxycycline 100mg BID PO - pulmonary regimen as above for COPD exacerbation #dysphagia #pharyngitis/esophagitis Sensation of food getting stuck in esophagus, solids predominantly Has been tolerating reg diet reasonably well, ordered texture as "slippery" to help with easy passage down esophagus - Barium swallow 03/21 revealing esophagitis and lower esophageal diverticulum vs mass due to history of steroids both systemic and inhaled, suspecting candidal esophagitis and treating as such: - continue fluconazole 300mg daily (based on weight) for 2wks halved dose of colchicine as this is known to raise fluconazole levels: if joint pain worsens, will consider returning to usual colchicine dose and decreasing fluconazole accordingly - continue chlorasceptic spray #uncontrolled T2DM -last a1c 8% in December - glucose stable - continue lantus 45 units daily - novolog - parameters: correction factor 20, carb ratio 1:5, goal range 110- 180 - continue BSGs ac/hs #anxiety, suspect reason for sinus tachycardia - continue clonazepam 0.5mg TID, timing changed to 0800, 1300, 2000 per pt preference - seroquel 200mg daily #Constipation ordered as needed glycerin suppository and fleet enema, pt may choose per preference #cancer related pain - following with palliative care, most recent visit 03/09/25, continue perocet 5/325 po q6h prn #tobacco dependence -nicoderm patch 7mg/day discontinued due to pt noncompliance and refusal #history of DVT 2020 - lovenox 150mg daily #chronic HFpEF - -appears euvolemic today there is chronic pedal edema BL however stable in the setting of her chronic venous stasis -[place] [facility] [place] [facility]cont bumex 4mg daily -cont aldactone 100mg BID #ELEUTERIO -BIPAP HS & with naps DVT: lovenox Dispo: med/tele Admission and Anticipated Discharge Date Admission Date: March 15, 2025 Supervising Physician Co-Signing Physician Notes Patient seen and examined, chart reviewed, case discussed with Dr. Guadarrama and I agree with the assessment and plan as above except as otherwise noted above. General: A&Ox3. NAD. Cooperative. HEENT: Atraumatic, normocephalic. Pulm: CTAB A&P. -wheezes, -rales, -rhonchi. Symmetrical chest rise. No increase work of breathing. No respiratory distress. DIminished in RLL. Cardiac: regular, slightly tachycardic. -mrg Seen at the bedside. Continues to feel easily fatigued with exertion, generally better at rest but not back to normal. She is not wheezing and air movement is improved overall, but still with some dyspnea and tachycardia. She is anticoagulated. Afebrile. On fluconazole for suspected esophagitis. Overall objective respiratory measures improving, but still has some Ramirez. Continue to optimize volume status. Anxiety is being followed by palliative which patient expresses an appreciation for. Agree w/ above Subjective No overnight events. Endorses still feeling chest tightness when she breathes but no pain. Still tolerating regular diet with some swallowing difficulty with solid food. She still denies fever, chills, CP, nausea/vomiting, abdominal pain, urinary complaints. Aiming for discharge on Sunday 03/25. Physical Exam Physical Exam: Gen: appearing in no acute distress CV: tachycardic regular, no m/r/g Resp: mild wheeze in all lung soriano again improved from prior exam, no obvious rales/rhonchi; b/l symmetrically decreased breath sounds especially on exhalation MSK: no peripheral edema; scattered bandages on b/l UE, not currently bleeding and nontender to palpation Results & Data Results & Data Vital Signs (Past 12 Hours) Vital Signs Temp Pulse Resp BP Pulse Ox O2 Del Method O2 Flow Rate 03/23/25 07:51 114 H 18 89 L Room Air 03/23/25 07:30 Room Air 03/23/25 07:11 36.6 C 106 H 16 122/76 95 Nasal Cannula 2 03/22/25 23:54 36.7 C 95 H 18 117/77 97 Nasal Cannula 2 03/22/25 23:13 100 H 16 97 Room Air FiO2 03/23/25 07:51 21 03/23/25 07:30 03/23/25 07:11 03/22/25 23:54 03/22/25 23:13 Resident Activity Tracking Resident Involvement: Resident Care Provided Care Provided: Adult Hospital Medicine (2) Diabetes mellitus type 2, uncontrolled Glycemic state: with hyperglycemia Qualified Code(s): E11.65 - Type 2 diabetes mellitus with hyperglycemia
[2025-03-23] MEDS: INSULIN HUMAN REGULAR PER UNIT 7 UNITS in SYRINGE 6.93 ML IV ONE (11:51)
--- NOTE | 2025-03-23 13:17 | Pharmacy Report ---
Pharmacy Glycemic Short Note 2 - Date of Service March 23, 2025 - Glycemic Short BSG Results (Last 24 hours): 03/22/25 03/22/25 03/23/25 15:44 20:10 07:09 Glucose 121 H POC Glucose 149 H 208 H 03/23/25 03/23/25 03/23/25 07:29 11:29 11:30 Glucose POC Glucose 137 H 321 H* 303 H* OUTPATIENT ANTIDIABETIC REGIMEN: * Lantus 45 units SC daily * Novolog sliding scale with meals A1c = 8% (01/18/25) ASSESSMENT: 03/23/25: * Blood sugars have been poorly controlled over past 48 hours * Blood sugar of 303 mg/dL at lunch today. This is due to no bolus insulin given this morning (RN from yesterday evening inadvertently documented on this morning's Novolog order). Will give one-time IV insulin bolus to treat this. * Steroids have been changed to prednisone 40 mg PO daily (day #2) 03/21/25 * Janae received a total of 79 units of insulin yesterday (40 units were basal and 39 units were bolus). * Fasting BSG was 115mg/dL. Diet was restarted last evening so Lantus was resumed this morning at 45 units SQ daily. * CR of bolus insulin was loosened as BSGs have dropped below goal the last two evenings. * She continues on methylprednisolone 40mg iv daily 03/20/25 * Blood sugars have been elevated over past 48 hours w/ periods of snacking noted * Received 156 units of insulin (55 units of basal and 101 units of prandial/correctional bolus) * NPO this morning for barium swallow * Steroids reduced yesterday to methylprednisolone 40 mg IV daily 03/18/25: * Janae is a 64 y/o F with PMHx severe COPD, CHF, T2DM, hx DVT on lovenox, ELEUTERIO, tobacco dependence, and multiple myeloma s/p stem cell transplant who presented with worsening shortness of breath, cough, and chest discomfort. Started on methylprednisolone 40 mg IV BID for COPD exacerbation. * Patient is well known to the glycemic service from past admissions. Will base insulin doses of October 2024 data as she was on high dose IV steroids for part of that admission as well. PLAN FOR INPATIENT GLYCEMIC CONTROL: * Basal insulin * Lantus 55 units SQ daily * Bolus insulin * NovoLog per scale ACHS or Q6hrs while NPO * Goal Range: Low 110 mg/dL - High 140 mg/dL * Correction Factor: 15 mg/dL/unit at 0730 and 1130, 20 mg/dL/unit at 1630 and 2100 * Nutritional / Prandial insulin per carb ratio of 1 unit per 3 grams CHO consumed at 0730 and 1130, 1 unit per 4 grams CHO at 1630 and 2100
[2025-03-24] MEDS: INSULIN ASPART PER UNIT CHARGE SC SCH (01:29)
[2025-03-24 06:20] LABS: Hematocrit (blood only) 39.6 % (37.0-47.0); Hemoglobin 13.2 g/dL (12.0-16.0); Mean Corpuscular Hemoglobin 26.3 pg (25.0-34.0); Mean Corpuscular Volume 79.0 fL (80.0-100.0); Platelet Count 297 K/uL (130-400); RDW Standard Deviation 49.1 fL (36.4-46.3); Red Blood Count 5.01 M/uL (4.20-5.40); White Blood Count 18.85 K/ul (4.8-10.8)
[2025-03-24 06:37] LABS: Anion Gap 13.0 (3-11); Blood Urea Nitrogen 55.0 mg/dl (6-23); Calcium 9.3 mg/dl (8.6-10.3); Carbon Dioxide 28.0 mmol/L (21-32); Chloride 91.0 mmol/L (98-107); Creatinine Clr Calc Pharmacy 53.7 ml/min; Glucose 154.0 mg/dl (70-99(Fasting)); Potassium 3.9 mmol/L (3.5-5.1); Sodium 132.0 mmol/L (136-145)
--- NOTE | 2025-03-24 06:56 | Hospitalist Progress Note ---
Date of Service March 24, 2025 Assessment & Plan (1) Acute exacerbation of chronic obstructive pulmonary disease: (2) Chronic heart failure with preserved ejection fraction (HFpEF): (3) Diabetes mellitus type 2, uncontrolled: (4) Generalized anxiety disorder: (5) Tobacco abuse counseling: (6) Cancer related pain: Plan Patient is a 64 y/o F PMHx severe COPD, CHF, T2DM, hx DVT on lovenox, ELEUTERIO, tobacco dependence, and multiple myeloma s/p stem cell transplant who is adm itted for worsening shortness of breath, cough, and chest discomfort for 3 days likely in the setting of COPD exacerbation. Requires continued admission for further evaluation and treatment of acute illness: currently treating suspected candidal esophagitis, COPD exacerbation, and CAP which are being treated accordingly. #COPD exacerbation - CXR in ED w/o pulmonary edema or consolidation - last spirometry 03/18/2024 - COPD with FEV1 46% ; following with [facility] [place] [facility]. - continue home Trelegy 200, PRN levalbuterol and ipratropium. - current treatment: - DuoNebs q4h - transitioned to prednisone 40mg qAM- on day 4 of oral - umeclidinium/vilant 62.5/25mcg 1 puff daily - guaifenesin BID - CBC, BMP AM #Leukocytosis, CAP vs HAP Resp biofire negative; leukocytosis likely due to systemic steroids, clinically improving - abx de-escalated to Augmentin 875mg BID and doxycycline 100mg BID PO, continue for 3 more days including today - pulmonary regimen as above for COPD exacerbation #dysphagia #pharyngitis/esophagitis Sensation of food getting stuck in esophagus, solids predominantly Has been tolerating reg diet reasonably well, ordered texture as "slippery" to help with easy passage down esophagus - Barium swallow 03/21 revealing esophagitis and lower esophageal diverticulum vs mass due to history of steroids both systemic and inhaled, suspecting candidal esophagitis and treating as such - continue fluconazole 300mg daily (based on weight) for 2wks halved dose of colchicine as this is known to raise fluconazole levels: if joint pain worsens, will consider returning to usual colchicine dose and decreasing fluconazole accordingly - continue chlorasceptic spray #uncontrolled T2DM -last a1c 8% in December - glucose stable - continue lantus 45 units daily - novolog - parameters: correction factor 20, carb ratio 1:5, goal range 110- 180 - continue BSGs ac/hs #anxiety, suspect reason for sinus tachycardia - continue clonazepam 0.5mg TID, timing changed to 0800, 1300, 2000 per pt preference - seroquel 200mg daily #Constipation ordered as needed glycerin suppository and fleet enema - wants fleet enema 03/24 #cancer related pain - following with palliative care, most recent visit 03/09/25, continue perocet 5/325 po q6h prn #tobacco dependence -nicoderm patch 7mg/day discontinued due to pt noncompliance and refusal #history of DVT 2020 - lovenox 150mg daily #chronic HFpEF -appears euvolemic today there is chronic pedal edema BL however stable in the setting of her chronic venous stasis -follows with [facility] [place] [facility] -cont bumex 4mg daily -cont aldactone 100mg BID #ELEUTERIO -BIPAP HS & with naps DVT: lovenox Dispo: med/tele Admission and Anticipated Discharge Date Admission Date: March 15, 2025 Supervising Physician Co-Signing Physician Notes Patient seen and examined, chart reviewed, case discussed with Dr. Guadarrama and I agree with the assessment and plan as above except as otherwise noted above. General: A&Ox3. NAD. Cooperative. HEENT: Atraumatic, normocephalic. Pulm: No increase work of breathing. No respiratory distress. DIminished in RLL. PAtient's main complaint is her constipation. Will continue glycerin and fleet enemas. Her SOB appears better controlled. Agree w/ above Subjective States overnight she was feeling a bit anxious and claustrophobic with her CPAP, switched to O2 mask and slept fine. Still tolerating regular diet with some swallowing difficulty with solid food. Requesting fleet enema as she is still constipated. She still denies fever, chills, CP, nausea/vomiting, abdominal pain, urinary complaints. Still aiming for discharge on tomorrow 03/25 Physical Exam Physical Exam: Gen: appearing in no acute distress CV: tachycardic regular, no m/r/g Resp: no wheeze appreciated on auscultation b/l ant/post; trace rales in lower L posterior lung soriano, otherwise no rales/rhonchi; b/l symmetrically decreased breath sounds especially on exhalation MSK: no peripheral edema; scattered bandages on b/l UE, not currently bleeding and nontender to palpation Results & Data Results & Data Vital Signs (Past 12 Hours) Vital Signs Temp Pulse Resp BP Pulse Ox O2 Del Method 03/24/25 00:01 109 H 16 94 Room Air 03/23/25 22:32 37.0 C 110 H 18 118/83 92 Room Air 03/23/25 21:00 CPAP 03/23/25 19:59 98 H 18 97 Room Air Resident Activity Tracking Resident Involvement: Resident Care Provided Care Provided: Adult Hospital Medicine (3) Diabetes mellitus type 2, uncontrolled Glycemic state: with hyperglycemia Qualified Code(s): E11.65 - Type 2 diabetes mellitus with hyperglycemia
[2025-03-24] MEDS: BUMETANIDE 1 MG TAB PO SCH (08:26)
[2025-03-24] MEDS: NovoLIN-N (NPH) PER UNIT CHARGE SQ ONE (08:27)
[2025-03-24] MEDS: SODIUM CHLORIDE 1 GM TABLET PO ONE (08:29)
[2025-03-24] MEDS: LANTUS PER UNIT CHARGE SQ SCH (08:43)
[2025-03-24] MEDS: SOD PHOSPHATE/SOD BIPHOSPHATE ENEMA 132 ML BTL PR SCH (10:26)
--- NOTE | 2025-03-24 11:50 | Palliative Care Progress Note ---
Date of Service March 24, 2025 Assessment & Plan (1) Dyspnea and respiratory abnormalities: Plan: pt requests portable oxygen for home use, she has an oxygen concentrator at home, but shared concern for increaseing frequency of her HARRIS requiring supplemental oxygen. She would like to continue to do her iADLs like grocery shopping and running errands with the security of knowing she has it with her if needed. (2) Weakness generalized: (3) Headache: Plan: Continue Acetaminophen 650 mg PO Q4H PRN pt denies current headache. (4) Cancer related pain: Plan: Pain remains well managed with Oxy 5mg 2-3x/day per pt report. Continue Oxycodone/Acetaminophen 5mg/325mg 1 tab PO Q6H PRN Per previous palliative care notes: "Discussed with med onc; She does NOT have recurrent myeloma. She DOES have MDS which will be treated supportively with transfusions etc as needed." She is under surveillance for progression of MM (5) Anxiety: Plan: Pt denies active anxiety, states that she feels less drowsy today and does not wish to make any changes at this time. Continue: Clonazepam 0.5 Mg PO TID (6) Palliative care by specialist: Plan: Palliative care will continue to follow for ongoing pain/symptom mgmt and patient support. Plan as above Admission and Anticipated Discharge Date Admission Date: March 15, 2025 Subjective Assessed pt at bedside, she was sitting upright in chair sleeping, but awakens briskly to voice. She denies pain today, but shared concern for ongoing HARRIS. I reminded her that she has oxygen Review of Systems Review of Systems: All systems reviewed & are unremarkable except as noted in Subjective Respiratory: + cough and + dyspnea on exertion Physical Exam Constitutional: WD/WN, vitals as above Eyes: PERRL, conjunctivae normal, anicteric sclerae ENMT: Mouth: + dry oral mucous membranes Neck: trachea midline, no thyromegaly Respiratory: Auscultation: + diminished lung sounds Cardiovascular: RRR, no murmur, no edema Rate/Rhythm: + tachycardic Gastrointestinal (Abdomen): Inspection/Auscultation: normal bowel sounds Percussion/Palpation: abdomen soft Psychiatric: Orientation: alert and oriented x 3 Eye Contact: + fair eye contact Speech: + pressured speech Affect: + anxious affect Results & Data Vital Signs (Past 12 Hours) Vital Signs Temp Pulse Resp BP Pulse Ox O2 Del Method 03/24/25 11:25 109 H 16 96 Room Air 03/24/25 07:31 36.6 C 115 H 16 126/79 96 Room Air 03/24/25 07:30 Room Air 03/24/25 07:16 112 H 16 96 Room Air 03/24/25 00:01 109 H 16 94 Room Air Laboratory Results Abnormal lab results 03/23/25 03/23/25 03/23/25 Range/Units 16:33 20:12 20:14 WBC (4.8-10.8) K/ul MCV (80.0-100.0) fL RDW Std Deviation (36.4-46.3) fL RDW Coeff of Malick (11.5-14.5) % Sodium (136-145) mmol/L Chloride (98-107) mmol/L Anion Gap (3-11) BUN (6-23) mg/dl BUN/Creatinine Ratio (10-20) Glucose (70-99(Fasting)) mg/dl POC Glucose 282 H 381 H* 414 H* (70-99) mg/dl 03/23/25 03/24/25 03/24/25 Range/Units 20:57 01:24 05:51 WBC 18.85 H (4.8-10.8) K/ul MCV 79.0 L (80.0-100.0) fL RDW Std Deviation 49.1 H (36.4-46.3) fL RDW Coeff of Malick 17.6 H (11.5-14.5) % Sodium 132 L (136-145) mmol/L Chloride 91 L (98-107) mmol/L Anion Gap 13 H (3-11) BUN 55 H (6-23) mg/dl BUN/Creatinine Ratio 56.7 H (10-20) Glucose 154 H (70-99(Fasting)) mg/dl POC Glucose 348 H* 152 H (70-99) mg/dl 03/24/25 03/24/25 Range/Units 07:37 11:39 WBC (4.8-10.8) K/ul MCV (80.0-100.0) fL RDW Std Deviation (36.4-46.3) fL RDW Coeff of Malick (11.5-14.5) % Sodium (136-145) mmol/L Chloride (98-107) mmol/L Anion Gap (3-11) BUN (6-23) mg/dl BUN/Creatinine Ratio (10-20) Glucose (70-99(Fasting)) mg/dl POC Glucose 175 H 181 H (70-99) mg/dl Medications Administered Current Inpatient Medications Acetaminophen (Acetaminophen 325 Mg Tab) 650 mg PO Q4H PRN PRN Reason: Pain or Fever Stop: 04/14/25 20:36 Albuterol (Albuterol Hfa 8 Gm Inhaler) 2 puffs INH Q4H PRN PRN Reason: Shortness Of Breath Or Wheezing Stop: 04/14/25 20:36 Albuterol (Albut/Ipratrop 3mg/0.5mg Neb 3 Ml Vial) 3 ml INH Q4R [facility]; Protocol Stop: 04/15/25 14:59 Last Admin: 03/24/25 11:24 Dose: 3 ml Allopurinol (Allopurinol 300 Mg Tab) 300 mg PO QAM [facility] Stop: 04/15/25 08:59 Last Admin: 03/24/25 08:26 Dose: 300 mg Amoxicillin/Clavulanate Potassium (Amoxicillin/Clavulanate 875 Mg Tab) 1 tab PO BIDM [facility]; Protocol Stop: 03/27/25 16:59 Last Admin: 03/24/25 08:30 Dose: 1 tab Budesonide (Budesonide 0.25 Mg/2 Ml Vial (Pulmicort)) 0.25 mg INH BID [facility] Stop: 04/14/25 20:59 Last Admin: 03/24/25 07:16 Dose: 0.25 mg Bumetanide (Bumetanide 1 Mg Tab) 4 mg PO BID@0800,1500 [facility] Stop: 04/23/25 07:59 Last Admin: 03/24/25 08:26 Dose: 4 mg Citalopram Hydrobromide (Citalopram 20 Mg Tab) 20 mg PO HS [facility] Stop: 04/14/25 20:59 Last Admin: 03/23/25 21:00 Dose: 20 mg Clonazepam (Clonazepam 0.5 Mg Tab) 0.5 mg PO TID@0800,1300,2000 [facility] Stop: 04/22/25 08:59 Last Admin: 03/24/25 08:42 Dose: 0.5 mg Colchicine (Colchicine 0.6 Mg Tab) 0.3 mg PO QAM [facility] Stop: 04/21/25 08:59 Last Admin: 03/24/25 09:59 Dose: 0.3 mg Dextrose (Dextrose 50% 50 Ml Syringe) 25 - 50 ml IV UD PRN; Protocol PRN Reason: Hypoglycemia Protocol Stop: 04/14/25 20:36 Doxycycline Hyclate (Doxycycline Hyclate 100 Mg Cap) 100 mg PO BID [facility] Stop: 03/27/25 20:59 Last Admin: 03/24/25 08:26 Dose: 100 mg Enoxaparin Sodium (Enoxaparin 150 Mg/Ml Syr) 150 mg SC Q24H [facility] Stop: 04/15/25 07:59 Last Admin: 03/24/25 08:27 Dose: 150 mg Fluconazole (Fluconazole 100 Mg Tab) 300 mg PO QAM [facility] Stop: 04/03/25 11:14 Last Admin: 03/24/25 09:59 Dose: 300 mg Glucagon (Glucagon For Inj 1 Mg Vial) 1 mg SQ UD PRN; Protocol PRN Reason: Hypoglycemia Protocol Stop: 04/14/25 20:36 Glucose (Glucose 40% Gel 15 Gm Tube) 15 - 30 gm PO UD PRN; Protocol PRN Reason: Hypoglycemia Protocol Stop: 04/14/25 20:36 Glucose (Glucose 10 Tab/Tube) 4 - 8 tab PO UD PRN; Protocol PRN Reason: Hypoglycemia Protocol Stop: 04/14/25 20:36 Glycerin (Glycerin Adult 12 Supp/Box Supp) 1 supp SC BID PRN PRN Reason: Constipation Stop: 04/21/25 15:08 Guaifenesin (Guaifenesin Sugar Free 100 Mg/5 Ml Udc) 200 mg PO Q4H PRN PRN Reason: Cough Stop: 04/14/25 20:46 Insulin Aspart (Insulin Aspart Per Unit Charge) 0 units SC 0730,1130 [facility] Stop: 04/14/25 20:59 Last Admin: 03/24/25 08:43 Dose: 25 units Insulin Aspart (Insulin Aspart Per Unit Charge) 0 units SC 1630,2100 [facility] Stop: 04/21/25 16:29 Last Admin: 03/23/25 21:04 Dose: 11 units Insulin Glargine (Lantus Per Unit Charge) 25 units SQ QAM [facility] Stop: 04/20/25 08:59 Last Admin: 03/24/25 08:43 Dose: 25 units Melatonin (Melatonin 3 Mg Tab) 3 mg PO HS PRN PRN Reason: Sleep Stop: 04/14/25 20:36 Last Admin: 03/23/25 20:59 Dose: 3 mg Miscellaneous (Carbohydrates For Hypoglycemia ) 15 - 30 gm PO UD PRN PRN Reason: Hypoglycemia Protocol Stop: 04/14/25 20:36 Miscellaneous (Remove Nicoderm Patch) 1 each N/A DAILY@0859 [facility] Stop: 04/15/25 08:58 Last Admin: 03/24/25 09:15 Dose: Not Given Miscellaneous Information (Pharmacy Glycemic Mgmt Consult) 1 each N/A UD PRN; Protocol PRN Reason: Consult Stop: 04/16/25 16:23 Ondansetron HCl (Ondansetron 4 Mg Od Tab) 4 mg PO Q8H PRN PRN Reason: NAUSEA/VOMITING Stop: 04/14/25 20:36 Last Admin: 03/21/25 19:37 Dose: 4 mg Oxycodone/Acetaminophen (Oxycodone/Acetaminophen 5mg/325mg Tab) 1 tab PO Q6H PRN PRN Reason: cancer pain Stop: 03/29/25 20:36 Last Admin: 03/24/25 06:07 Dose: 1 tab Pantoprazole Sodium (Pantoprazole 40 Mg Tab) 40 mg PO BID [facility] Stop: 04/14/25 20:59 Last Admin: 03/24/25 08:27 Dose: 40 mg Phenol (Chloraseptic (Phenol) 1.4% Soln 180 Ml Btl) 2 sprays MT Q4H PRN PRN Reason: Sore Throat Stop: 04/19/25 15:50 Polyethylene Glycol (Polyethylene (Miralax) 17 Gm Pack) 17 gm PO DAILY PRN PRN Reason: Constipation Stop: 04/14/25 20:36 Prednisone (Prednisone 20 Mg Tab) 40 mg PO DAILY [facility] Stop: 04/21/25 08:59 Last Admin: 03/24/25 08:26 Dose: 40 mg Quetiapine Fumarate (Quetiapine Fumarate 200 Mg Tab) 200 mg PO HS [facility] Stop: 04/14/25 20:59 Last Admin: 03/23/25 21:34 Dose: 200 mg Sodium Biphosphate/Sodium Phosphate (Sod Phosphate/Sod Biphosphate Enema 132 Ml Btl) 132 ml SC DAILY [facility] Stop: 04/23/25 10:14 Last Admin: 03/24/25 10:26 Dose: 132 ml Spironolactone (Spironolactone 100 Mg Tab) 100 mg PO DAILY [facility] Stop: 04/15/25 08:59 Last Admin: 03/24/25 10:00 Dose: 100 mg Umeclidinium/Vilanterol (Umeclidinium/Vilanterol 62.5/25mcg 7 Puffs/Inhaler) 1 puffs INH DAILY [facility] Stop: 04/16/25 13:14 Last Admin: 03/24/25 08:29 Dose: 1 puffs PG Care Time/CCT Total # of Minutes Spent Total Time Spent with Patient: Total time spent is greater than 50% in coordination of care (as documented) at patient's floor/unit and/or counseling patient: [place] [address] SUB INP/OBS CARE 2/35MIN Patient Type Established History Problem Focused Exam Problem Focused Medical Decision Making Low Complexity Diagnoses Dyspnea and respiratory abnormalities R06.00; R06.89 Weakness generalized R53.1 Headache R51.9 Cancer related pain G89.3 Anxiety F41.9 Palliative care by specialist Z51.5
[2025-03-24] MEDS ORDERED: ENOXAPARIN 150 MG/ML SYR SC SCH (15:43)
[2025-03-25] MEDS: ENOXAPARIN INJ 120 MG/0.8 ML SYR SQ SCH (08:03)
[2025-03-25] MEDS: INSULIN ASPART PER UNIT CHARGE SC SCH (09:20)
[2025-03-25] MEDS: NovoLIN-N (NPH) PER UNIT CHARGE SQ ONE (09:37)
[2025-03-25] MEDS: MAGNESIUM CITRATE 296 ML/BTL PO STA (11:35)
--- NOTE | 2025-03-25 15:17 | Hospitalist Progress Note ---
Date of Service March 25, 2025 Assessment & Plan (1) Acute exacerbation of chronic obstructive pulmonary disease: (2) Chronic heart failure with preserved ejection fraction (HFpEF): (3) Diabetes mellitus type 2, uncontrolled: (4) Generalized anxiety disorder: (5) Tobacco abuse counseling: (6) Cancer related pain: Plan Patient is a 64 y/o F PMHx severe COPD, CHF, T2DM, hx DVT on lovenox, ELEUTERIO, tobacco dependence, and multiple myeloma s/p stem cell transplant who is adm itted for worsening shortness of breath, cough, and chest discomfort for 3 days likely in the setting of COPD exacerbation. Requires continued admission for further evaluation and treatment of acute illness: currently treating suspected candidal esophagitis, COPD exacerbation, and CAP which are being treated accordingly. #COPD exacerbation - CXR in ED w/o pulmonary edema or consolidation - last spirometry 03/18/2024 - COPD with FEV1 46% ; following with [facility] [place] [facility]. - continue home Trelegy 200, PRN levalbuterol and ipratropium. - current treatment: - DuoNebs q4h - transitioned to prednisone 40mg qAM- on day 5 of oral, can discontinue after tomorrow's dose - umeclidinium/vilant 62.5/25mcg 1 puff daily - guaifenesin BID - CBC, BMP AM #Leukocytosis, CAP vs HAP Resp biofire negative; leukocytosis likely due to systemic steroids, clinically improving - abx de-escalated to Augmentin 875mg BID and doxycycline 100mg BID PO, continue for 2 more days including today - pulmonary regimen as above for COPD exacerbation #dysphagia #pharyngitis/esophagitis Sensation of food getting stuck in esophagus, solids predominantly Has been tolerating reg diet reasonably well, ordered texture as "slippery" to help with easy passage down esophagus - Barium swallow 03/21 revealing esophagitis and lower esophageal diverticulum vs mass due to history of steroids both systemic and inhaled, suspecting candidal esophagitis and treating as such - continue fluconazole 300mg daily (based on weight) for 2wks halved dose of colchicine as this is known to raise fluconazole levels: if joint pain worsens, will consider returning to usual colchicine dose and decreasing fluconazole accordingly - continue chlorasceptic spray #uncontrolled T2DM -last a1c 8% in December - glucose stable - continue lantus 45 units daily - novolog - parameters: correction factor 20, carb ratio 1:5, goal range 110- 180 - continue BSGs ac/hs #anxiety, suspect reason for sinus tachycardia - continue clonazepam 0.5mg TID, timing changed to 0800, 1300, 2000 per pt preference - seroquel 200mg daily #Constipation ordered as needed glycerin suppository and fleet enema - fleet enema 03/24 only produced small hard stools given mag citrate today #cancer related pain - following with palliative care, most recent visit 03/09/25, continue perocet 5/325 po q6h prn #tobacco dependence -nicoderm patch 7mg/day discontinued due to pt noncompliance and refusal #history of DVT 2020 - lovenox 150mg daily #chronic HFpEF -appears euvolemic today there is chronic pedal edema BL however stable in the setting of her chronic venous stasis -follows with [facility] -cont bumex 4mg daily -cont aldactone 100mg BID #ELEUTERIO -BIPAP HS & with naps DVT: lovenox Dispo: med/tele Admission and Anticipated Discharge Date Admission Date: March 15, 2025 Supervising Physician Co-Signing Physician Notes Patient seen and examined, chart reviewed, case discussed with Dr. Guadarrama and I agree with the assessment and plan as above except as otherwise noted above. General: A&Ox3. NAD. Cooperative. HEENT: Atraumatic, normocephalic. Pulm: No increase work of breathing. No respiratory distress. DIminished in RLL. Patient's main complaint is her constipation. Will continue glycerin and fleet enemas. Added mag citrate. Her SOB appears better controlled. She reports she is still having anxiety and would like to discuss with Nati Villa her medications on Thursday. Agree w/ above Subjective expresses desire to change klonopin back to xanax, as klonopin makes her too sleepy notes she still has some difficulty with swallowing, but this is improved with moist food endorses improvement in breathing, no longer wheezing or having tightness desires mag citrate to help her have a BM, notes this as a priority before she goes home Physical Exam Physical Exam: Gen: appearing in no acute distress CV: tachycardic regular, no m/r/g Resp: no wheeze appreciated on auscultation b/l ant/post; trace rales in lower L posterior lung soriano, otherwise no rales/rhonchi; b/l symmetrically decreased breath sounds especially on exhalation MSK: no peripheral edema; scattered bandages on b/l UE, not currently bleeding and nontender to palpation Results & Data Results & Data Vital Signs (Past 12 Hours) Vital Signs Pulse Resp BP Pulse Ox O2 Del Method 03/25/25 15:08 100 H 18 97 Room Air 03/25/25 11:12 100 H 18 98 Room Air 03/25/25 08:21 103 H 18 136/94 96 Room Air 03/25/25 07:30 Room Air 03/25/25 07:07 98 H 18 91 Room Air Resident Activity Tracking Resident Involvement: Resident Care Provided Care Provided: Adult Hospital Medicine (3) Diabetes mellitus type 2, uncontrolled Glycemic state: with hyperglycemia Qualified Code(s): E11.65 - Type 2 diabetes mellitus with hyperglycemia
[2025-03-26] MEDS: NovoLIN-N (NPH) PER UNIT CHARGE SQ SCH (08:30)
--- NOTE | 2025-03-26 09:19 | Hospitalist Progress Note ---
Date of Service March 26, 2025 Assessment & Plan (1) Acute exacerbation of chronic obstructive pulmonary disease: (2) Chronic heart failure with preserved ejection fraction (HFpEF): (3) Diabetes mellitus type 2, uncontrolled: (4) Generalized anxiety disorder: (5) Tobacco abuse counseling: (6) Cancer related pain: Plan Patient is a 64 y/o F PMHx severe COPD, CHF, T2DM, hx DVT on lovenox, ELEUTERIO, tobacco dependence, and multiple myeloma s/p stem cell transplant who is adm itted for worsening shortness of breath, cough, and chest discomfort for 3 days likely in the setting of COPD exacerbation. Requires continued admission for further evaluation and treatment of acute illness: currently treating suspected candidal esophagitis, COPD exacerbation, and CAP which are being treated accordingly. #constipation hasn't had a significant BM in about a week reportedly, tried fleet/glycerin enemas and mag citrate now feeling nauseated and minimal appetite, likely related to being significantly backed up ordered [employer] half gallon #COPD exacerbation, improved - CXR in ED w/o pulmonary edema or consolidation - last spirometry 03/18/2024 - COPD with FEV1 46% ; [place] [facility] [place] [facility] - continue home Trelegy 200, PRN levalbuterol and ipratropium. - current treatment: - DuoNebs q4h - transitioned to prednisone 40mg qAM- can discontinue after today's dose - umeclidinium/vilant 62.5/25mcg 1 puff daily - guaifenesin BID - CBC, BMP AM #dysphagia #pharyngitis/esophagitis Sensation of food getting stuck in esophagus, solids predominantly Has been tolerating reg diet reasonably well, ordered texture as soft to help with easy passage down esophagus - Barium swallow 03/21 revealing esophagitis and lower esophageal diverticulum vs mass due to history of steroids both systemic and inhaled, suspecting candidal esophagitis and treating as such - continue fluconazole 300mg daily (based on weight) for 2wks halved dose of colchicine as this is known to raise fluconazole levels: if joint pain worsens, will consider returning to usual colchicine dose and decreasing fluconazole accordingly - continue chlorasceptic spray #anxiety, suspect reason for sinus tachycardia - switched to alprazolam 0.5mg TID at 0800, 1300, 2000 per pt preference - seroquel 200mg daily #cancer related pain - following with palliative care, most recent visit 03/09/25, continue perocet 5/325 po q6h prn - adamant about talking to Dr. Villa while inpatient #Leukocytosis, CAP vs HAP Resp biofire negative; leukocytosis likely due to systemic steroids, clinically improving - abx de-escalated to Augmentin 875mg BID and doxycycline 100mg BID PO, will discontinue tomorrow - pulmonary regimen as above for COPD exacerbation #uncontrolled T2DM -last a1c 8% in December - glucose stable - continue lantus 45 units daily - novolog - parameters: correction factor 20, carb ratio 1:5, goal range 110- 180 - continue BSGs ac/hs #tobacco dependence -nicoderm patch 7mg/day discontinued due to pt noncompliance and refusal #history of DVT 2020 - lovenox 150mg daily #chronic HFpEF -appears euvolemic today there is chronic pedal edema BL however stable in the setting of her chronic venous stasis -[place] [facility] [place] [facility] -cont bumex 4mg daily -cont aldactone 100mg BID #ELEUTERIO -BIPAP HS & with naps DVT: lovenox Dispo: med/tele Admission and Anticipated Discharge Date Admission Date: March 15, 2025 Supervising Physician Co-Signing Physician Notes Patient seen and examined, chart reviewed, case discussed with Dr. Guadarrama and I agree with the assessment and plan as above except as otherwise noted above. General: A&Ox3. NAD. Cooperative. HEENT: Atraumatic, normocephalic. Pulm: No increase work of breathing. No respiratory distress. DIminished in RLL. Patient's main complaint iremains her constipation. Will now try Golytly. If patient continues to not improve from this standpoint would conisder imaging such as KUB. However patient reports this has been a chronic issue. Added mag citrate. Her SOB appears better controlled. She reports she is still having anxiety and would like to discuss with Nati Villa her medications on Thursday.. Agree w/ above Subjective feels nauseated, did have some lower chest discomfort overnight. Hasn't had a significant BM even with the mag citrate, open to trying golytely. endorses breathing is still good, no longer wheezing or having tightness adamant about talking to Dr. Villa, who will be in tomorrow Physical Exam Physical Exam: Gen: appearing in no acute distress CV: tachycardic regular, no m/r/g Resp: no wheeze appreciated on auscultation b/l ant/pos, no rales/rhonchi; improved biphasic lung excursion GI/abd: +Bs, dull to percussion, discomfort to palpation of abdomen MSK: no peripheral edema; scattered bandages on b/l UE, not currently bleeding and nontender to palpation Results & Data Results & Data Vital Signs (Past 12 Hours) Vital Signs Temp Pulse Resp BP BP Pulse Ox O2 Del Method 03/26/25 07:37 36.4 C L 103 H 18 117/80 93 Room Air 03/26/25 07:07 99 H 18 93 Room Air 03/25/25 22:35 36.8 C 97 H 18 130/90 99 Nasal Cannula 03/25/25 22:15 100 H 14 92 Room Air O2 Flow Rate 03/26/25 07:37 03/26/25 07:07 03/25/25 22:35 2 03/25/25 22:15 Resident Activity Tracking Resident Involvement: Resident Care Provided Care Provided: Adult Hospital Medicine (3) Diabetes mellitus type 2, uncontrolled Glycemic state: with hyperglycemia Qualified Code(s): E11.65 - Type 2 diabetes mellitus with hyperglycemia
[2025-03-26] MEDS: LAVAGE SOLUTION 4000ML PO ONE (10:52)
[2025-03-26] MEDS: METOCLOPRAMIDE HCL INJ 5 MG/ML 2 ML VIAL IV ONE ×2 (10:54→17:54)
--- NOTE | 2025-03-26 11:01 | Billing Data ---
Date of Service March 24, 2025 Coding Level of Care Code 74633 SUB INP/OBS CARE
--- NOTE | 2025-03-26 11:01 | Billing Data ---
Date of Service March 25, 2025 Coding Level of Care Code 08464 SUB INP/OBS CARE
--- NOTE | 2025-03-26 12:53 | Pharmacy Report ---
Pharmacy Glycemic Short Note 2 - Date of Service March 26, 2025 - Glycemic Short BSG Results (Last 24 hours): 03/25/25 03/25/25 03/26/25 16:50 20:35 07:34 POC Glucose 275 H 200 H 126 H 03/26/25 11:31 POC Glucose 131 H OUTPATIENT ANTIDIABETIC REGIMEN: * Lantus 45 units SC daily * Novolog sliding scale with meals A1c = 8% (01/18/25) ASSESSMENT: 03/26/25: * Blood sugars have remained elevated * Plan changed to NPH/Lantus starting 03/24 to treat prednisone-induced hyperglycemia * Slight improvement in blood sugars noted, but will utilize more aggressive carb ratio today * Fasting blood sugars have been well-controlled so no adjustment of basal insulin today * Remains on prednisone 40 mg PO daily 03/23/25: * Blood sugars have been poorly controlled over past 48 hours * Blood sugar of 303 mg/dL at lunch today. This is due to no bolus insulin given this morning (RN from yesterday evening inadvertently documented on this morning's Novolog order). Will give one-time IV insulin bolus to treat this. * Steroids have been changed to prednisone 40 mg PO daily (day #2) 03/21/25 * Janae received a total of 79 units of insulin yesterday (40 units were basal and 39 units were bolus). * Fasting BSG was 115mg/dL. Diet was restarted last evening so Lantus was resumed this morning at 45 units SQ daily. * CR of bolus insulin was loosened as BSGs have dropped below goal the last two evenings. * She continues on methylprednisolone 40mg iv daily 03/20/25 * Blood sugars have been elevated over past 48 hours w/ periods of snacking noted * Received 156 units of insulin (55 units of basal and 101 units of prandial/correctional bolus) * NPO this morning for barium swallow * Steroids reduced yesterday to methylprednisolone 40 mg IV daily 03/18/25: * Janae is a 64 y/o F with PMHx severe COPD, CHF, T2DM, hx DVT on lovenox, ELEUTERIO, tobacco dependence, and multiple myeloma s/p stem cell transplant who presented with worsening shortness of breath, cough, and chest discomfort. Started on methylprednisolone 40 mg IV BID for COPD exacerbation. * Patient is well known to the glycemic service from past admissions. Will base insulin doses of October 2024 data as she was on high dose IV steroids for part of that admission as well. PLAN FOR INPATIENT GLYCEMIC CONTROL: * Basal insulin * Lantus 25 units SC daily * NPH 30 units SC daily w/ prednisone 40 mg PO daily * Bolus insulin * NovoLog per scale ACHS or Q6hrs while NPO * Goal Range: Low 110 mg/dL - High 140 mg/dL * Correction Factor: 10 mg/dL/unit * Nutritional / Prandial insulin per carb ratio of 1 unit per 2 grams CHO consumed
[2025-03-26] MEDS: BUMETANIDE 1 MG TAB PO SCH (14:54)
--- NOTE | 2025-03-26 16:18 | Billing Data ---
Date of Service March 26, 2025 Coding Level of Care Code 73446 SUB INP/OBS CARE
--- NOTE | 2025-03-26 18:45 | XRay Report ---
INDICATION: Abdominal pain TECHNIQUE: Portable supine view radiograph of the abdomen was obtained. COMPARISON: CT abdomen and pelvis February 19, 2025. FINDINGS: The bowel gas pattern is nonobstructive. There is a high density material opacifyingthe colon. Evaluation for free air is limited due to supine technique. Organ silhouettes are normal in shape and contour. There is no gross mass effect. Th surgical clips are seen over the abdomen and the pelvis. IMPRESSION: Nonobstructive bowel gas pattern. Hide density material is seen opacifying the colon. This could represent an enteric contrast. Please clinically correlate. Electronically signed by Aneudy Barclay 03-26-2025 6:43 PM
[2025-03-27] MEDS ORDERED: PROCHLORPERAZINE 5 MG in SYRINGE 4 ML IV PRN (08:58)
[2025-03-27] MEDS: MAGNESIUM HYDROXIDE SUSP 30 ML UDC PO ONE (09:31)
[2025-03-27] MEDS: SIMETHICONE 80 MG CHEW PO ONE (09:31)
[2025-03-27] MEDS: METOCLOPRAMIDE HCL INJ 5 MG/ML 2 ML VIAL IV ONE (09:32)
[2025-03-27] MEDS ORDERED: ALUMINUM/MAGNESIUM/SIMETH (MAALOX MAX) 30 ML UDC PO PRN (10:00)
[2025-03-27] MEDS: FAMOTIDINE 20MG IV PUSH 20 MG/5 ML SYR IV SCH (11:02)
[2025-03-27] MEDS: PANTOprazole 40 MG/10 ML SYR IV SCH (11:02)
[2025-03-27] MEDS: POLYETHYLENE (MIRALAX) 17 GM PACK PO SCH (11:02)
[2025-03-27] MEDS: ONDANSETRON INJ 2 MG/ML 2 ML VIAL IV SCH (11:03)
[2025-03-27] MEDS: ALUMINUM/MAGNESIUM/SIMETH (MAALOX MAX) 30 ML UDC PO STA ×2 (11:03→11:10)
--- NOTE | 2025-03-27 11:04 | Hospitalist Progress Note ---
Date of Service March 27, 2025 Assessment & Plan (1) Acute exacerbation of chronic obstructive pulmonary disease: (2) Chronic heart failure with preserved ejection fraction (HFpEF): (3) Diabetes mellitus type 2, uncontrolled: (4) Generalized anxiety disorder: (5) Tobacco abuse counseling: (6) Cancer related pain: Plan Patient is a 64 y/o F PMHx severe COPD, CHF, T2DM, hx DVT on lovenox, ELEUTERIO, tobacco dependence, and multiple myeloma s/p stem cell transplant who is admi tted for worsening shortness of breath, cough, and chest discomfort for 3 days likely in the setting of COPD exacerbation. Requires continued admission for further evaluation and treatment of acute illness: currently treating suspected candidal esophagitis, COPD exacerbation, and CAP which are being treated accordingly. #constipation hasn't had a significant BM in about a week reportedly, tried fleet/glycerin enemas and mag citrate now feeling nauseated and minimal appetite, likely related to being significantly backed up KUB showing PO contrast in colon, which pt had taken a week ago; did not have much of the golytely ordered day prior continue with fleet enemas, attempting mylanta and miralax today with scheduled zofran and prn compazine 03/27/25 #COPD exacerbation, improved - CXR in ED w/o pulmonary edema or consolidation - last spirometry 03/18/2024 - COPD with FEV1 46% ; following with [facility] [place] [facility]. - continue home Trelegy 200, PRN levalbuterol and ipratropium. - current treatment: - DuoNebs + pulmicort BID - prednisone course complete - umeclidinium/vilant 62.5/25mcg 1 puff daily - guaifenesin BID - CBC, BMP AM #dysphagia #pharyngitis/esophagitis Sensation of food getting stuck in esophagus, solids predominantly Has been tolerating reg diet reasonably well, ordered texture as soft to help with easy passage down esophagus - Barium swallow 03/21 revealing esophagitis and lower esophageal diverticulum vs mass due to history of steroids both systemic and inhaled, suspecting candidal esophagitis and treating as such - continue fluconazole 300mg daily (based on weight) for 2wks halved dose of colchicine as this is known to raise fluconazole levels: if joint pain worsens, will consider returning to usual colchicine dose and decreasing fluconazole accordingly - continue chlorasceptic spray #anxiety, suspect reason for sinus tachycardia - switched to alprazolam 0.5mg TID at 0800, 1300, 2000 per pt preference - seroquel 200mg daily #cancer related pain - following with palliative care, most recent visit 03/09/25, continue perocet 5/325 po q6h prn - adamant about talking to Dr. Villa while inpatient #Leukocytosis, CAP vs HAP Resp biofire negative; leukocytosis likely due to systemic steroids, clinically improving - abx de-escalated to Augmentin 875mg BID and doxycycline 100mg BID PO, will discontinue tomorrow - pulmonary regimen as above for COPD exacerbation #uncontrolled T2DM -last a1c 8% in December - glucose stable - continue lantus 45 units daily - novolog - parameters: correction factor 20, carb ratio 1:5, goal range 110- 180 - continue BSGs ac/hs #tobacco dependence -nicoderm patch 7mg/day discontinued due to pt noncompliance and refusal #history of DVT 2020 - lovenox 150mg daily #chronic HFpEF -appears euvolemic today there is chronic pedal edema BL however stable in the setting of her chronic venous stasis -follows with [facility] [place] [facility] -cont bumex 4mg daily -cont aldactone 100mg BID #ELEUTERIO -BIPAP HS & with naps DVT: lovenox Dispo: med/tele Admission and Anticipated Discharge Date Admission Date: March 15, 2025 Supervising Physician Co-Signing Physician Notes I personally examined the patient and verified all rosario points of history and exam, discussed case, and agree with decision making with Dr Guadarrama Breathing feels better than whenever she came in, but notes that she is still not had meaningful bowel movements and feels extremely nauseated. Vitals noted, in general she is awake and alert pleasant but does appear to be nauseated sitting up in the chair leaning slightly forward with an emesis bag nearby. Breathing unlabored no accessory muscle use good effort. Skin without rashes pallor or icterus. Abdomen soft moderately distended mild diffuse tenderness no guarding rebound or rigidity. KUB from yesterday noted. Severe constipationprobably to a degree opiate induced as well as chronic slow throughput as well as acute from acute illnessunable to take p.o. very well. Trying Maalox in addition to what she is able to tolerate with GoLytely/MiraLAX today. Severe COPD/chronic HFpEF/OSAnow appears to be back to baseline breathin gcame in for a COPD exacerbation chronic DVTcontinue anticoagulation MDS/myeloma status post marrow transplantcontinue to follow otherwise as above Subjective feels nauseated still, endorses small-moderate BM overnight. willing to try additional meds for constipation / anti-nausea. endorses breathing is still good, no wheezing or having tightness adamant about talking to palliative care before she goes home Physical Exam Physical Exam: Gen: appearing tired, in moderate distress CV: mildly tachycardic regular, no m/r/g Resp: no wheeze appreciated on auscultation b/l ant/pos, no rales/rhonchi; improved biphasic lung excursion GI/abd: +BS, dull to percussion, discomfort to palpation of abdomen MSK: no peripheral edema; scattered bandages on b/l UE, not currently bleeding and nontender to palpation Results & Data Results & Data Vital Signs (Past 12 Hours) Vital Signs Temp Pulse Resp BP Pulse Ox O2 Del Method 03/27/25 07:29 36.7 C 102 H 18 138/92 95 Room Air Resident Activity Tracking Resident Involvement: Resident Care Provided Care Provided: Adult Hospital Medicine (3) Diabetes mellitus type 2, uncontrolled Glycemic state: with hyperglycemia Qualified Code(s): E11.65 - Type 2 diabetes mellitus with hyperglycemia
[2025-03-27] MEDS: ALUMINUM/MAGNESIUM/SIMETH (MAALOX MAX) 30 ML UDC PO SCH (13:04)
--- NOTE | 2025-03-27 13:13 | Billing Data ---
Date of Service March 27, 2025 Coding Level of Care Code 31425 SUB INP/OBS CARE
--- NOTE | 2025-03-27 13:21 | Pharmacy Report ---
Pharmacy Glycemic Short Note 2 - Date of Service March 27, 2025 - Glycemic Short BSG Results (Last 24 hours): 03/26/25 03/26/25 03/27/25 16:42 20:28 07:53 POC Glucose 78 88 143 H 03/27/25 11:26 POC Glucose 212 H OUTPATIENT ANTIDIABETIC REGIMEN: * Lantus 45 units SC daily * Novolog sliding scale with meals A1c = 8% (01/18/25) ASSESSMENT: 03/27/25: * BSGs 183-079-04-88 mg/dL- 30 units of NPH with 40 mg of prednisone, 25 units of basal, 14 units of novolog in the AM * Prednisone discontinued this morning, therefore will discontinue NPH * Limited intake, fasting 143 mg/dL today-- will continue with 25 units of lantus for now * Loosened novolog parameters given prednisone discontinuation/minimal intake/trend downward yesterday but may need tightened if trend back up 03/26/25: * Blood sugars have remained elevated * Plan changed to NPH/Lantus starting 03/24 to treat prednisone-induced hyperglycemia * Slight improvement in blood sugars noted, but will utilize more aggressive carb ratio today * Fasting blood sugars have been well-controlled so no adjustment of basal insulin today * Remains on prednisone 40 mg PO daily 03/23/25: * Blood sugars have been poorly controlled over past 48 hours * Blood sugar of 303 mg/dL at lunch today. This is due to no bolus insulin given this morning (RN from yesterday evening inadvertently documented on this morning's Novolog order). Will give one-time IV insulin bolus to treat this. * Steroids have been changed to prednisone 40 mg PO daily (day #2) 03/21/25 * Janae received a total of 79 units of insulin yesterday (40 units were basal and 39 units were bolus). * Fasting BSG was 115mg/dL. Diet was restarted last evening so Lantus was resumed this morning at 45 units SQ daily. * CR of bolus insulin was loosened as BSGs have dropped below goal the last two evenings. * She continues on methylprednisolone 40mg iv daily 03/20/25 * Blood sugars have been elevated over past 48 hours w/ periods of snacking noted * Received 156 units of insulin (55 units of basal and 101 units of prandial/correctional bolus) * NPO this morning for barium swallow * Steroids reduced yesterday to methylprednisolone 40 mg IV daily 03/18/25: * Jaane is a 64 y/o F with PMHx severe COPD, CHF, T2DM, hx DVT on lovenox, ELEUTERIO, tobacco dependence, and multiple myeloma s/p stem cell transplant who presented with worsening shortness of breath, cough, and chest discomfort. Started on methylprednisolone 40 mg IV BID for COPD exacerbation. * Patient is well known to the glycemic service from past admissions. Will base insulin doses of October 2024 data as she was on high dose IV steroids for part of that admission as well. PLAN FOR INPATIENT GLYCEMIC CONTROL: * Basal insulin * Lantus 25 units SC daily * Bolus insulin * NovoLog per scale ACHS or Q6hrs while NPO * Goal Range: Low 110 mg/dL - High 140 mg/dL * Correction Factor: 15 mg/dL/unit * Nutritional / Prandial insulin per carb ratio of 1 unit per 5 grams CHO consumed
[2025-03-27 16:17] VITALS: TEMP 97.3
[2025-03-27] MEDS: ALBUT/IPRATROP 3MG/0.5MG NEB 3 ML VIAL INH SCH (17:39)
--- NOTE | 2025-03-27 18:35 | Palliative Care Progress Note ---
Date of Service March 27, 2025 Assessment & Plan (1) Dyspnea and respiratory abnormalities: Plan: pt requests portable oxygen for home use, she has an oxygen concentrator at home, but shared concern for increaseing frequency of her HARRIS requiring supplemental oxygen. She would like to continue to do her iADLs like grocery shopping and running errands with the security of knowing she has it with her if needed. (2) Weakness generalized: (3) Headache: Plan: Continue Acetaminophen 650 mg PO Q4H PRN pt denies current headache. (4) Cancer related pain: Plan: Pain remains well managed with Oxy 5mg 2-3x/day per pt report. Continue Oxycodone/Acetaminophen 5mg/325mg 1 tab PO Q6H PRN Per previous palliative care notes: "Discussed with med onc; She does NOT have recurrent myeloma. She DOES have MDS which will be treated supportively with transfusions etc as needed." She is under surveillance for progression of MM (5) Anxiety: Plan: Pt denies active anxiety, states that she still feels drowsy today but shared that she believes this will improve with the change back to prn xanax for anxiety. (6) Palliative care by specialist: Plan: Palliative care will continue to follow for ongoing pain/symptom mgmt and patient support. Plan as above Admission and Anticipated Discharge Date Admission Date: March 15, 2025 Subjective Assessed pt at bedside, she was sleeping soundly, but startled awake with gentle touch. ROBBY FERNANDEZ. Pt denies any pain or active anxiety, but shared concern for ongoing constipation and discomfort with idea of returning home, stating "I am just not ready". Review of Systems Review of Systems: All systems reviewed & are unremarkable except as noted in Subjective Physical Exam Constitutional: WD/WN, vitals as above well developed, + acute distress, cooperative and + in distress Eyes: PERRL, conjunctivae normal, anicteric sclerae ENMT: Mouth: + dry oral mucous membranes Neck: trachea midline, no thyromegaly Respiratory: + respiratory distress and symmetric [address] movement Auscultation: + diminished lung sounds Cardiovascular: RRR, no murmur, no edema Rate/Rhythm: + tachycardic Chest (Breasts): Breast: normal inspection of axillae and + breast mass (hard slightly nodular mass approx 2inches, Left Upper outer quadrant) Gastrointestinal (Abdomen): Inspection/Auscultation: normal bowel sounds Percussion/Palpation: abdomen soft Psychiatric: Orientation: alert and oriented x 3 Speech: + pressured speech Affect: + anxious affect Estimated Intelligence: consistent with education level Results & Data Vital Signs (Past 12 Hours) Vital Signs Temp Pulse Pulse Resp BP BP Pulse Ox 03/27/25 18:08 105 H 17 98 03/27/25 17:42 102 H 17 98 03/27/25 16:16 36.3 C L 104 H 18 116/81 95 03/27/25 11:35 03/27/25 07:29 36.7 C 102 H 18 138/92 95 O2 Del Method FiO2 03/27/25 18:08 21 03/27/25 17:42 Room Air 21 03/27/25 16:16 Room Air 03/27/25 11:35 Room Air, CPAP 03/27/25 07:29 Room Air Laboratory Results Abnormal lab results 03/27/25 03/27/25 03/27/25 Range/Units 07:53 11:26 16:59 POC Glucose 143 H 212 H 404 H* (70-99) mg/dl 03/27/25 03/27/25 Range/Units 17:02 17:03 POC Glucose 183 H 176 H (70-99) mg/dl Diagnostic Findings Chest X-Ray 03/15/25 14:18 XR chest 1V not portable CLINICAL HISTORY: Chest pain, nonspecific COMPARISON STUDY: 02/23/2025 FINDINGS: Heart size and pulmonary vasculature are normal. No consolidation or pleural effusion. No pneumothorax. IMPRESSION: No acute findings. ACT 112: Negative or not required by law. Electronically signed by: Jas Lancaster M.D. 03/15/2025 3:07 PM Barium Swallow X-Ray 03/20/25 13:00 FL barium swallow CLINICAL HISTORY: assess esophageal function. TECHNIQUE: Barium contrast and effervescent crystals were administered to the patient under fluoroscopic examination. Multiple images were obtained and submitted for review. FLUOROSCOPY TIME: 24 seconds FLUOROSCOPY IMAGES: 20 Ka,r: 8 mGy COMPARISON: None FINDINGS: Exam is limited and abbreviated due to patient inability to tolerate the exam. There are tertiary contractions of the esophagus and reduced esophageal motility. There is esophageal mucosal irregularity suggesting esophagitis. There is irregularity at the distal esophagus which could represent a portion diverticulum measuring approximately 1 cm versus distal esophageal mass. No gross hiatal hernia seen. IMPRESSION: 1. Limited exam. 2. Findings suggesting esophagitis. 3. Posterior diverticulum versus mass at the distal esophagus. Endoscopy is suggested. ACT 112: Positive. There are findings on this exam that require communication between the performing entity and the patient following Patient Test Result Information Act ([place] Act 112) guidelines. The above report was generated using voice recognition software. It may contain grammatical, syntax or spelling errors. Electronically signed by: Jas Lancaster M.D. 03/20/2025 2:34 PM KUB X-Ray 03/26/25 17:30 INDICATION: Abdominal pain TECHNIQUE: Portable supine view radiograph of the abdomen was obtained. COMPARISON: CT abdomen and pelvis February 19, 2025. FINDINGS: The bowel gas pattern is nonobstructive. There is a high density material opacifyingthe colon. Evaluation for free air is limited due to supine technique. Organ silhouettes are normal in shape and contour. There is no gross mass effect. Th surgical clips are seen over the abdomen and the pelvis. IMPRESSION: Nonobstructive bowel gas pattern. Hide density material is seen opacifying the colon. This could represent an enteric contrast. Please clinically correlate. Electronically signed by Aneudy Barclay 03-26-2025 6:43 PM Medications Administered Current Inpatient Medications Acetaminophen (Acetaminophen 325 Mg Tab) 650 mg PO Q4H PRN PRN Reason: mild Pain 1-3 or Fever Stop: 04/14/25 20:36 Al Hydrox/Mg Hydrox/Simethicone (Aluminum/Magnesium/Simeth (Maalox Max) 30 Ml Udc) 15 ml PO Q1H [facility] Stop: 03/27/25 19:01 Last Admin: 03/27/25 18:01 Dose: Not Given Albuterol (Albuterol Hfa 8 Gm Inhaler) 2 puffs INH Q4H PRN PRN Reason: Shortness Of Breath Or Wheezing Stop: 04/14/25 20:36 Albuterol (Albut/Ipratrop 3mg/0.5mg Neb 3 Ml Vial) 3 ml INH BID [facility]; Protocol Stop: 04/26/25 20:59 Last Admin: 03/27/25 17:39 Dose: 3 ml Allopurinol (Allopurinol 300 Mg Tab) 300 mg PO QAM [facility] Stop: 04/15/25 08:59 Last Admin: 03/27/25 07:56 Dose: 300 mg Alprazolam (Alprazolam 0.5 Mg Tablet) 0.5 mg PO TID@0800,1300,2000 PRN PRN Reason: Anxiety Stop: 04/24/25 19:59 Last Admin: 03/27/25 14:05 Dose: 0.5 mg Budesonide (Budesonide 0.25 Mg/2 Ml Vial (Pulmicort)) 0.25 mg INH BID [facility] Stop: 04/14/25 20:59 Last Admin: 03/27/25 17:39 Dose: 0.25 mg Bumetanide (Bumetanide 1 Mg Tab) 4 mg PO BID@0800,1300 [facility] Stop: 04/25/25 13:29 Last Admin: 03/27/25 13:00 Dose: 4 mg Citalopram Hydrobromide (Citalopram 20 Mg Tab) 20 mg PO HS [facility] Stop: 04/14/25 20:59 Last Admin: 03/26/25 20:37 Dose: 20 mg Colchicine (Colchicine 0.6 Mg Tab) 0.3 mg PO QAM [facility] Stop: 04/21/25 08:59 Last Admin: 03/27/25 07:58 Dose: 0.3 mg Dextrose (Dextrose 50% 50 Ml Syringe) 25 - 50 ml IV UD PRN; Protocol PRN Reason: Hypoglycemia Protocol Stop: 04/14/25 20:36 Enoxaparin Sodium (Enoxaparin Inj 120 Mg/0.8 Ml Syr) 111 mg SQ DAILY [facility] Stop: 04/24/25 08:59 Last Admin: 03/27/25 07:55 Dose: 111 mg Fluconazole (Fluconazole 100 Mg Tab) 300 mg PO QAM [facility] Stop: 04/03/25 11:14 Last Admin: 03/27/25 07:58 Dose: 300 mg Glucagon (Glucagon For Inj 1 Mg Vial) 1 mg SQ UD PRN; Protocol PRN Reason: Hypoglycemia Protocol Stop: 04/14/25 20:36 Glucose (Glucose 40% Gel 15 Gm Tube) 15 - 30 gm PO UD PRN; Protocol PRN Reason: Hypoglycemia Protocol Stop: 04/14/25 20:36 Glucose (Glucose 10 Tab/Tube) 4 - 8 tab PO UD PRN; Protocol PRN Reason: Hypoglycemia Protocol Stop: 04/14/25 20:36 Glycerin (Glycerin Adult 12 Supp/Box Supp) 1 supp NV BID PRN PRN Reason: Constipation Stop: 04/21/25 15:08 Guaifenesin (Guaifenesin Sugar Free 100 Mg/5 Ml Udc) 200 mg PO Q4H PRN PRN Reason: Cough Stop: 04/14/25 20:46 Pantoprazole Sodium (Protonix) 40 mg in 10 mls @ 5 mls/min IV BID [facility] Stop: 04/26/25 08:59 Last Admin: 03/27/25 11:02 Dose: 5 mls/min Famotidine (Pepcid 20mg Iv Push) 20 mg in 5 mls @ 2.5 mls/min IV Q12H [facility] Stop: 04/26/25 08:59 Last Admin: 03/27/25 11:02 Dose: 2.5 mls/min Prochlorperazine 5 mg/ Syringe 5 mls @ 5 mls/min IV Q6H PRN; Protocol PRN Reason: Nausea And Vomiting Stop: 04/26/25 08:57 Insulin Aspart (Insulin Aspart Per Unit Charge) 0 units SC ACHS [facility] Stop: 04/21/25 07:29 Last Admin: 03/27/25 17:52 Dose: 3 units Insulin Glargine (Lantus Per Unit Charge) 25 units SQ QAM [facility] Stop: 04/20/25 08:59 Last Admin: 03/27/25 08:14 Dose: 25 units Melatonin (Melatonin 3 Mg Tab) 3 mg PO HS PRN PRN Reason: Sleep Stop: 04/14/25 20:36 Last Admin: 03/25/25 20:23 Dose: 3 mg Miscellaneous (Carbohydrates For Hypoglycemia ) 15 - 30 gm PO UD PRN PRN Reason: Hypoglycemia Protocol Stop: 04/14/25 20:36 Miscellaneous (Remove Nicoderm Patch) 1 each N/A DAILY@0859 [facility] Stop: 04/15/25 08:58 Last Admin: 03/27/25 08:14 Dose: Not Given Miscellaneous Information (Pharmacy Glycemic Mgmt Consult) 1 each N/A UD PRN; Protocol PRN Reason: Consult Stop: 04/16/25 16:23 Ondansetron HCl (Ondansetron Inj 2 Mg/Ml 2 Ml Vial) 4 mg IV Q6H [facility] Stop: 03/28/25 04:01 Last Admin: 03/27/25 15:48 Dose: 4 mg Ondansetron HCl (Ondansetron Inj 2 Mg/Ml 2 Ml Vial) 4 mg IV Q6H PRN; Protocol PRN Reason: Nausea Stop: 04/27/25 09:59 Oxycodone/Acetaminophen (Oxycodone/Acetaminophen 5mg/325mg Tab) 1 tab PO Q6H PRN PRN Reason: cancer pain 4-10 Stop: 03/29/25 20:36 Last Admin: 03/27/25 09:31 Dose: 1 tab Phenol (Chloraseptic (Phenol) 1.4% Soln 180 Ml Btl) 2 sprays MT Q4H PRN PRN Reason: Sore Throat Stop: 04/19/25 15:50 Polyethylene Glycol (Polyethylene (Miralax) 17 Gm Pack) 17 gm PO TID [facility] Stop: 04/26/25 08:59 Last Admin: 03/27/25 15:41 Dose: 17 gm Quetiapine Fumarate (Quetiapine Fumarate 200 Mg Tab) 200 mg PO HS [facility] Stop: 04/14/25 20:59 Last Admin: 03/26/25 20:37 Dose: 200 mg Sodium Biphosphate/Sodium Phosphate (Sod Phosphate/Sod Biphosphate Enema 132 Ml Btl) 132 ml NV DAILY [facility] Stop: 04/23/25 10:14 Last Admin: 03/27/25 08:17 Dose: 132 ml Spironolactone (Spironolactone 100 Mg Tab) 100 mg PO DAILY [facility] Stop: 04/15/25 08:59 Last Admin: 03/27/25 07:58 Dose: 100 mg Umeclidinium/Vilanterol (Umeclidinium/Vilanterol 62.5/25mcg 7 Puffs/Inhaler) 1 puffs INH DAILY [facility] Stop: 04/16/25 13:14 Last Admin: 03/27/25 07:59 Dose: 1 puffs PG Care Time/CCT Total # of Minutes Spent Total Time Spent with Patient: Total time spent is greater than 50% in coordination of care (as documented) at patient's floor/unit and/or counseling patient: [place]oding [place] [address] SUB INP/OBS CARE 2/35MIN Patient Type Established History Expanded Problem Focused Exam Expanded Problem Focused Medical Decision Making Moderate Complexity Diagnoses Dyspnea and respiratory abnormalities R06.00; R06.89 Weakness generalized R53.1 Headache R51.9 Cancer related pain G89.3 Anxiety F41.9 Palliative care by specialist Z51.5
[2025-03-27 20:45] VITALS: BP 132/91; PULSE 102; RESP 18; O2SAT 94
--- NOTE | 2025-03-28 05:43 | Death Pronouncement Note ---
Date of Service March 28, 2025 Pronouncement Note Admission Date Admission Date: March 15, 2025 Contributing Factors (1) Dyspnea and respiratory abnormalities: (2) Weakness generalized: (3) Headache: (4) Cancer related pain: (5) Palliative care by specialist: Summary Additional details: I was called to the bedside by the nurse, Ale Long, due to difficulties arousing the patient, even by a sternal rub. Upon entering the room, patient was found to be breathing, but with very thready radial pulses and also did not respond to her name or arouse with sternal rub. Upon opening her eyelids, patient's eyes appeared fixed and dilated. Pupils did not respond to light. Patient was unresponsive to, and did not withdrawal from, verbal or tactile stimuli.Patient was attempted to be put back on CPAP, but after about five minutes ceased breathing on the CPAP. Repeated cardiopulmonary exam found patient to be without detectable carotid pulses, radial pulses or femoral pulses; and without spontaneous heart tones or respirations. Time of was pronounced by me on 03/28/25 at 4:20 am. Attending physician was notified was notified. Next of kin was notified by the nurse, Ale Long. Signed: Nelson Schaffer Additional Data Confirmation of : no pulse, no respirations, no heart sounds and pupils fixed and dilated Family: contacted Attending/PCP notified?: Yes Attending physician: DO Robby Tobias, DO Was code activated?: No Autopsy requested?: No
--- NOTE | 2025-03-28 07:41 | Discharge Summary ---
Date of Service March 28, 2025 Admission HPI Per Admitting Provider Janae Monzon is a 64 y/o F PMHx severe COPD, CHF, T2DM, hx DVT on lovenox, ELEUTERIO, tobacco dependence, and multiple myeloma s/p stem cell transplant who presented to ED this evening for evaluation of shortness of breath, chest tightness, and productive cough that has been ongoing for 3 days. Has been using home inhalers and Mucinex without much relief of her symptoms. Reports her chest tightness is intermittent and nonradiating. Cough is productive, however feels as though she can express the mucus and it is getting stuck in her throat. Denies fever/chills, headache, dizziness, N/V. She currently is living with her sister who was recently sick with a head cold. Patient tachycardic HR 110. O2 97% on 2L NC. She uses supplemental oxygen at home as needed. Has a CPAP at night for sleep. ED labs WBC 13.3, H&H 12.8 & 40.4. Electrolytes wnl. Cr 0.93. Glucose 225. CXR w/o pulmonary edema or consolidation. Biofire negative. Given DuoNebs x1 and methylprednisolone 80mg IV. Patient will be admitted to med/tele for a cute COPD exacerbation in the setting of unspecific URI. Patient does have history of multiple admissions this year due to COPD exacerbation, most recently was d/c from [facility] on 02/24/25 after a 5 day admission. On prednisone 15mg daily at home. Has a 20 pack year smoking history. She states today she continues to smoke about 3-5 cigarettes daily. Following with pulmonology as well as allergy & immunology. Admission Exam Per Admitting Provider GENERAL APPEARANCE: uncomfortable appearing, alert, awake, resting in bed. NEURO: Alert and oriented x3 EENT: Sclera anicteric, conjunctiva pink. Oral mucosa moist and pink. CARDIAC: tachycardic, regular rhythm. no mumur appreciated. LUNGS: diffuse end-expiratory wheezes throughout all lung soriano. no rales appreciated. no conversational dyspnea noted. some increased work of breathing w/o accessory muscle usage. ABDOMEN: Positive bowel sounds. Soft, nondistended, with mild epigastric tenderness (this is chronic, per patient). No guarding or rebound. EXTREMITIES: chronic venous stasis of BL lower extremities with stable BL pitting LE edema. SKIN: warm, dry, w/o rash Principal Diagnosis COPD exacerbation, acute hypoxic respiratory failure Discharge Exam Gen: appearing without movement, no movement with sternal rub HEENT: no corneal reflex, pupils fixed and mid-dilated CV: no heartbeat auscultated, no carotid pulses palpated Resp: no chest rise, no breath sounds auscultated Discharge Data Allergies Allergy/AdvReac Type Severity Reaction Status Date / Time codeine Allergy Severe Anaphylaxis Verified 03/15/25 18:51 Iodinated Contrast Media Allergy Severe Anaphylaxis Verified 03/15/25 18:51 shellfish derived Allergy Severe Anaphylaxis Verified 03/15/25 18:51 pollen extracts Allergy Mild Congested Verified 03/15/25 18:51 iohexol Allergy Unknown CAN'T Verified 03/15/25 18:51 REMEMBER diphenhydramine AdvReac Severe Anxiety Verified 03/15/25 18:51 [From Benadryl] promethazine AdvReac Intermediate Anxiety Verified 03/15/25 18:51 Consultations 03/20/25 13:48 Consult Gastroenterology Routine 03/22/25 13:54 Consult Palliative Care Routine Ordered Studies 03/20/25 13:00 FL barium swallow Routine Hospital Course (1) Acute hypoxemic respiratory failure: (2) COPD (chronic obstructive pulmonary disease): (3) Smoking greater than 40 pack years: (4) Chronic heart failure with preserved ejection fraction (HFpEF): (5) Weakness generalized: Plan Patient is a 64 y/o F PMHx severe COPD, CHF, T2DM, hx DVT on lovenox, ELEUTERIO, tobacco dependence, and multiple myeloma s/p stem cell transplant who is admitted for worsening shortness of breath, cough, and chest discomfort for 3 days likely in the setting of COPD exacerbation. Likely due to acute hypoxic / hypercapnic respiratory failure while asleep, leading to lack of O2 to brain and heart. #COPD exacerbation, improved #acute hypoxic respiratory failure despite the improvement of her breathing as far as the wheezing and tightness go, likely overnight she succumbed to acute hypoxic/hypercapnic respiratory failure with respiratory depression, ultimately leading to lack of perfusion to vital organs and subsequent #tobacco dependence - with likely >40 pack-year history of cigarettes, this was likely a significant factor in the development of her severe COPD #myelodysplastic syndrome #DVT history stroke could additionally be considered, but with her being on anticoagulation and noted global (not focal) lack of extremity movement upon examination, this is a less likely scenario #chronic HFpEF - likely contributing factor in her overall worsening respiratory picture Total Time Total Time Spent Total Time Spent (In Minutes): per attending attestation Discharge Plan Discharge Items Patient Disposition: Discharge Diagnosis: COPD exacerbation, CAP Addtl Attending Provider Instructions: Patient is a 64 y/o F PMHx severe COPD, CHF, T2DM, hx DVT on lovenox, ELEUTERIO, tobacco dependence, and multiple myeloma s/p stem cell transplant who is admitted for worsening shortness of breath, cough, and chest discomfort for 3 days likely in the setting of COPD exacerbation. Likely due to acute hypoxic / hypercapnic respiratory failure while asleep, leading to lack of O2 to brain and heart. #COPD exacerbation, improved #acute hypoxic respiratory failure despite the improvement of her breathing as far as the wheezing and tightness go, likely overnight she succumbed to acute hypoxic/hypercapnic respiratory failure with respiratory depression, ultimately leading to lack of perfusion to vital organs and subsequent #tobacco dependence - with likely >40 pack-year history of cigarettes, this was likely a significant factor in the development of her severe COPD #myelodysplastic syndrome #DVT history stroke could additionally be considered, but with her being on anticoagulation and noted global (not focal) lack of extremity movement upon examination, this is a less likely scenario #chronic HFpEF - likely contributing factor in her overall worsening respiratory picture Other Date/Time: 03/28/25 04:20 Supervising Physician Co-Signing Physician Notes pt seen 03/27, chart reviewed from overnight events. had d/w nursing last evening and around 6:30pm was having BMs, no other new issues had arisen. in review of overnight RN and resident notes, appears pt was stable when she went to sleep and then was found in the middle of the night. strongly suspect acute event related to her severe chronic illnesses - ventricular arrhythmia > sudden respiratory failure - but given that she went to sleep without any apparent distress/new problems, and then was found , a sudden acute event related to her chronic illness burden would by far fit the best to her situation. Severe COPD/chronic HFpEF/OSAstronly suspect event in this family of diagnoses led to her passing. Severe constipationabdomen distended but otherwise benign when i examined her 03/27, and had BMs later in the day/early evening. chronic DVTcontinue anticoagulation MDS/myeloma status post marrow transplant otherwise as above Resident Activity Tracking Resident Involvement: Resident Care Provided Care Provided: Adult [facility]
[2025-03-28] MEDS ORDERED: ONDANSETRON INJ 2 MG/ML 2 ML VIAL IV PRN (10:00)
== END 2025-03-28 05:50 | disposition expired | DRG 190 ==
LOC: ED 14:12 → 2S 18:46 → SUATTDRO 18:46 → 2S 20:12 → 3N 03-22 18:25